=== PATIENT | female | born 1950 | race Hispanic/Latino ===

== ENCOUNTER 2017-08-01 06:37 | Inpatient (IN) | payer OTHER ==
--- OUTSIDE RECORDS SUMMARY | 2017-08-01 06:40 | XMS REPORT | Clinical Summary ---
:1950 Author Organization [facility] Address [address] [place] [address] Phone Care Team Providers Name Role Phone Unavailable Primary Care Provider Unavailable Allergies No Known Allergies Current Medications Prescription Sig. Disp. Refills Start Date End Date Status amLODIPine Take 5 mg by mouth Active (NORVASC) 5 MG 2 (two) times tablet daily. carvedilol Take 6.25 mg by Active (COREG) 6.25 MG mouth 2 (two) times tablet daily with breakfast and dinner. lisinopril Take 20 mg by mouth Active (PRINIVIL,ZESTRIL daily. ) 20 MG tablet aspirin 81 MG Take 81 mg by mouth Active chewable tablet daily. simvastatin Take 40 mg by mouth Active (ZOCOR) 40 MG nightly. tablet clopidogrel Take 1 tablet (75 90 tablet 0 07/14/2017 10/13/19 Active (PLAVIX) 75 mg mg total) by mouth 18 tablet daily for 90 days. insulin lispro Inject 20 Units 10 mL 0 07/13/2017 07/14/19 Active (HUMALOG) 100 subcutaneously 3 19 unit/mL injection (three) times daily with meals. insulin glargine Inject 30 Units 20 mL 3 07/13/2017 07/14/19 Active (LANTUS) 100 subcutaneously 2 19 unit/mL (two) times daily. injectionIndicati ons: type 2 diabetes mellitus insulin glargine Inject 40 Units 07/14/19 Discontinued (LANTUS) 100 subcutaneously 2 18 unit/mL injection (two) times daily Use as directed . glimepiride Take 1 mg by mouth 07/14/19 Discontinued (AMARYL) 1 MG 2 (two) times 18 tablet daily. metFORMIN Take 1,000 mg by 07/14/19 Discontinued (GLUCOPHAGE) 1000 mouth 2 (two) times 18 MG tablet daily with breakfast and dinner. insulin aspart Inject 35 Units 07/14/19 Discontinued (NOVOLOG) 100 subcutaneously 3 18 unit/mL injection (three) times daily before meals. Active Problems Problem Noted Date Diabetes mellitus (HCC) 07/12/2017 Hypertension 07/12/2017 Pneumonia 07/12/2017 Volume overload 07/12/2017 Acute respiratory failure with hypoxia ([facility]) 07/12/2017 Acute ischemic left MCA stroke ([facility]) 07/08/2017 Encounters Date Type Specialty Care Team Description 07/08/2017 - Hospital Encounter Intensive Care Moe Vo Acute ischemic left 07/13/2017 MD Naomy MCA stroke Gennaro Orellana ([facility]);Received MD Fransisco tissue plasminogen activator (t-PA) less than 24 hours prior to arrival;Acute respiratory failure with hypoxia ([facility]) 07/08/2017 Anesthesia Event Shilo Valiente MD 07/08/2017 Procedure Pass 07/08/2017 Surgery Virtual, Surgeon PROCEDURE DONE OUTSIDE OR after 07/31/2016 Social History Tobacco Use Types Packs/Day Years Used Date Never Smoker Smokeless Tobacco: Never Used Sex Assigned at Date Recorded Not on file Last Filed Vital Signs Vital Sign Reading Time Taken Blood Pressure 128/54 07/13/2017 11:00 AM CDT Pulse 65 07/13/2017 1:00 PM CDT Temperature 36.8 C (98.3 F) 07/13/2017 11:00 AM CDT Respiratory Rate 8 07/13/2017 1:00 PM CDT Oxygen Saturation 100% 07/13/2017 12:00 PM CDT Inhaled Oxygen Concentration - - Weight 86.3 kg (190 lb 4.1 oz) 07/08/2017 6:27 PM [employer] Height 165.1 cm (5' 5") 07/08/2017 6:27 PM [employer] Body Mass Index 31.66 07/08/2017 6:27 PM [employer] Plan of Treatment Not on file Procedures Procedure Name Priority Date/Time Associated Diagnosis Comments PROCEDURE DONE OUTSIDE 07/08/2017 2:02 PM CREOSOT[employer] ENGINEER OR after 07/31/2016 Results RHYTHM STRIP - SCAN (07/17/2017 11:00 AM)POC-Glucose meter (07/13/2017 12:19 PM) Only the most recent of21 resultswithin the time period is included. Component Value Ref Range POC-Glucose Meter 302 (H)Comment: Notified SAAMN HERNANDEZ/TESTED AT [facility] [id number] 70 - 110 mg/dL [facility] [id number] Specimen Performing Laboratory Blood [address] [address] Calcium, Ionized (07/13/2017 3:34 AM) Component Value Ref Range Calcium, Ion 1.11 (L) 1.12 - 1.27 mmol/L pH, Blood 7.47 Specimen Performing Laboratory Blood - Line, Venous [address] [address] CBC with platelet count + automated diff (07/13/2017 3:34 AM)Only the most recent of6 resultswithin the time period is included. Component Value Ref Range WBC 8.1 3.5 - 10.5 K/L RBC 3.43 (L) 3.93 - 5.22 M/L Hemoglobin 10.9 (L) 11.2 - 15.7 GM/DL Hematocrit 32.2 (L) 34.1 - 44.9 % MCV 93.9 79.4 - 94.8 fL MCH 31.8 25.6 - 32.2 pg MCHC 33.9 32.2 - 35.5 GM/DL RDW 13.2 11.7 - 14.4 % Platelets 225 150 - 450 K/CU MM MPV 12.9 (H) 9.4 - 12.3 fL nRBC 0 0 - 0 /100 WBC % Neutros 60 % % Lymphs 26 % % Monos 8 % % Eos 6 % % Baso 0 % # Neutros 4.83 1.56 - 6.13 K/L # Lymphs 2.09 1.18 - 3.74 K/L # Monos 0.66 (H) 0.24 - 0.36 K/L # Eos 0.48 (H) 0.04 - 0.36 K/L # Baso 0.03 0.01 - 0.08 K/L Immature Granulocytes-Relative 0 0 - 1 % Specimen Performing Laboratory Blood - Line, Venous [address] [address] CBC with platelet count + automated diff (07/13/2017 3:34 AM)Only the most recent of6 resultswithin the time period is included. Specimen Performing Laboratory Blood Narrative The following orders were created for panel order CBC with platelet count + automated diff. Procedure Abnormality Status --------- ------ CBC with platelet count ...[[id number]]AbnormalFinal result Please view results for these tests on the individual orders. Phosphorus (07/13/2017 3:34 AM) Component Value Ref Range Phosphorus 3.2 2.3 - 4.7 mg/dL Specimen Performing Laboratory Blood - Line, Venous [address] [address] Magnesium (07/13/2017 3:34 AM) Component Value Ref Range Magnesium 1.3 (L) 1.6 - 2.6 mg/dL Specimen Performing Laboratory Blood - Line, Venous [address] [address] Basic Metabolic Panel (07/13/2017 3:34 AM)Only the most recent of6 resultswithin the time period is included. Component Value Ref Range Sodium 137 136 - 145 meq/L Potassium 3.4 (L) 3.5 - 5.1 meq/L Chloride 103 98 - 107 meq/L CO2 25 22 - 29 meq/L BUN 22 (H) 7 - 21 mg/dL Creatinine 0.74 0.57 - 1.25 mg/dL Glucose 237 (H) 70 - 105 mg/dL Calcium 9.0 8.4 - 10.2 mg/dL EGFR 79Comment: ESTIMATED GFR IS NOT ACCURATE mL/min/1.73 sq m CREATININE CLEARANCE IN PREDICTING GLOMERULAR FILTRATION RATE. ESTIMATED GFR IS NOT APPLICABLE FOR DIALYSIS PATIENTS. Specimen Performing Laboratory Blood - Line, Venous [address] [address] XR chest 1 view portable / bedside (07/12/2017 8:45 AM)Only the most recent of4 resultswithin the time period is included. Specimen Performing Laboratory GE RIS Narrative FINAL REPORT Chest one view INDICATION: Respiratory distress COMPARISON: 07/11/2017 IMPRESSION: Two frontal images of the chest are provided. Decreased diffuse lung opacities suggesting improved pulmonary edema. Superimposed pneumonitis cannot be excluded particularly at the bases. Minimal pleural effusions are suspected. The cardiac silhouette is enlarged. Mediastinal prominence is stable. The bones appear unchanged. No pneumothorax is seen. Signed: Guy Hercules MD Report Verified Date/Time:07/12/2017 09:30:37 Reading Location: [facility] Radiology Reading Room Procedure Note Interface, External Ris In - 07/12/2017 9:32 AM CDT FINAL REPORT Chest one view INDICATION: Respiratory distress COMPARISON: 07/11/2017 IMPRESSION: Two frontal images of the chest are provided. Decreased diffuse lung opacities suggesting improved pulmonary edema. Superimposed pneumonitis cannot be excluded particularly at the bases. Minimal pleural effusions are suspected. The cardiac silhouette is enlarged. Mediastinal prominence is stable. The bones appear unchanged. No pneumothorax is seen. Signed: Guy Hercules MD Report Verified Date/Time: 07/12/2017 09:30:37 Reading Location: [facility] Radiology Reading Room Vitamin B12 (07/12/2017 4:50 AM) Component Value Ref Range Vitamin B12 318 213 - 816 pg/mL Specimen Performing Laboratory Blood [address] [address] Blood gas, arterial (07/11/2017 5:01 AM)Only the most recent of4 resultswithin the time period is included. Component Value Ref Range pH, Arterial 7.42 7.35 - 7.45 pCO2, Arterial 29 (L) 35 - 45 mmHg pO2, Arterial 96 (H) 80 - 90 mmHg O2 Sat, Arterial 97.5 (H) 96.0 - 97.0 % HCO3, Arterial 18 (L) 21 - 29 mmol/L Base Excess, Arterial -5.1 (L) -2.0 - 3.0 mmol/L Patient Temperature 37.0 C FIO2 21.0 % Specimen Performing Laboratory Blood, Arterial - Line, Arterial [address] [address] Troponin I (07/10/2017 11:56 PM)Only the most recent of2 resultswithin the time period is included. Component Value Ref Range Troponin I 0.17 (H) 0.00 - 0.03 ng/mL Specimen Performing Laboratory Blood - Line, Arterial [address] [address] Narrative Troponin I (TnI) levels must be interpreted in the context of the presenting symptoms and the clinical findings. Elevated TnI levels indicate myocardial damage, but are not specific for ischemic heart disease. Elevated TnI levels are seen in patients with other cardiac conditions (including myocarditis and congestive heart failure), and slight TnI elevations occur in patients with other conditions, including sepsis, renal failure, acidosis, acute neurological disease, and persistent tachyarrhythmia. Creatine Kinase (CK), Total and MB (07/10/2017 11:56 PM)Only the most recent of2 resultswithin the time period is included. Component Value Ref Range Total CK 168 29 - 200 U/L CK-MB 1.2 0.0 - 6.6 ng/mL MB Relative Index 0.7 % Specimen Performing Laboratory Blood - Line, Arterial [address] [address] Narrative CK-MB Reference Range: <6.7Normal 6.7-10.0Borderline >10.0 Abnormal ECG 12 lead (07/10/2017 2:10 PM)Only the most recent of2 resultswithin the time period is included. Specimen Performing Laboratory GE MUSE Narrative Ventricular Rate 75 BPM Atrial Rate 75 BPM P-R Interval 150 ms QRS Duration 74 ms Q-T Interval 382 ms QTC Calculation(Bazett) 426 ms P [place] 48 degrees R [place] -3 degrees T [place] 168 degrees Normal sinus rhythm ST & T wave abnormality, consider lateral ischemia Abnormal ECG When compared with ECG of 10-JUL-2017 07:11, QT has shortened Confirmed by MD MAYUR, MICHAEL Escalera ([id number]) on 07/11/2017 7:04:48 AM Procedure Note Interface, External Ris In - 07/11/2017 7:04 AM CDT Ventricular Rate 75 BPM Atrial Rate 75 BPM P-R Interval 150 ms QRS Duration 74 ms Q-T Interval 382 ms QTC Calculation(Bazett) 426 ms P [place] 48 degrees R [place] -3 degrees T [place] 168 degrees Normal sinus rhythm ST & T wave abnormality, consider lateral ischemia Abnormal ECG When compared with ECG of 10-JUL-2017 07:11, QT has shortened Confirmed by MD MAYUR, MICHAEL Escalera ([id number]) on 07/11/2017 7:04:48 AM Sputum Culture + Gram Stain (07/10/2017 12:56 PM) Component Value Ref Range Result Result 4+ Haemophilus influenzae (A)Comment: Beta-lactamase negative Gram Stain Result 4+ WBCs Gram Stain Result 0-5 epithelial cells Gram Stain Result <1+ gram positive rods Gram Stain Result 2+ gram positive cocci in pairs Specimen Performing Laboratory Sputum - Expectorated [address] [address] Narrative 4+ Normal respiratory lor present ECHOCARDIOGRAM REPORT - SCAN (07/10/2017 11:50 AM)B-type Natriuretic Factor (BNP ) (07/10/2017 11:29 AM) Component Value Ref Range BNP 524 (H) 0 - 100 pg/mL Specimen Performing Laboratory Blood - Line, Arterial [address] [address] Lactic acid, arterial, whole blood (07/10/2017 4:40 AM) Component Value Ref Range Lactate, Art 0.8 0.5 - 2.2 mmol/L Specimen Performing Laboratory Blood, Arterial [address] [address] Narrative Effective 09/02/2015: Units/Reference Range Change New: 0.5-2.2 mmol/LPrevious: 5-20 mg/dL Comprehensive metabolic panel (07/10/2017 4:40 AM) Component Value Ref Range Protein, Total 6.7 6.0 - 8.3 gm/dL Albumin 3.2 (L) 3.5 - 5.0 g/dL Alkaline Phosphatase 77 40 - 150 U/L Total Bilirubin 0.9 0.2 - 1.2 mg/dL Sodium 139 136 - 145 meq/L Potassium 3.7 3.5 - 5.1 meq/L Chloride 109 (H) 98 - 107 meq/L CO2 18 (L) 22 - 29 meq/L BUN 13 7 - 21 mg/dL Creatinine 0.69 0.57 - 1.25 mg/dL Glucose 250 (H) 70 - 105 mg/dL Calcium 8.0 (L) 8.4 - 10.2 mg/dL AST 18 5 - 34 U/L ALT 13 6 - 55 U/L EGFR 85Comment: ESTIMATED GFR IS NOT ACCURATE mL/min/1.73 sq m CREATININE CLEARANCE IN PREDICTING GLOMERULAR FILTRATION RATE. ESTIMATED GFR IS NOT APPLICABLE FOR DIALYSIS PATIENTS. Specimen Performing Laboratory Blood [facility] [address] [address] [address] brain without IV contrast (07/10/2017 2:55 AM) Specimen Performing Laboratory RIS Narrative FINAL REPORT CT, BRAIN, WITHOUT CONTRAST INDICATION: "Stroke Stroke evaluation" TECHNIQUE: Noncontrast axial imaging was obtained from the vertex to the skull base. Axial images were reconstructed using a bone algorithm. DOSE REDUCTION: Dose modulation, iterative reconstruction, and/or weight-based adjustment of the mA/kV was utilized to reduce the radiation dose to as low as reasonably achievable. COMPARISON: Head CT 07/09/2017 FINDINGS: Mild global volume loss with mild to moderate patchy periventricular and subcortical areas of white matter hypoattenuation consistent with chronic microvascular ischemic disease. Midline structures and posterior fossa within normal limits. No subacute territorial infarction or hyperdense thrombus. No acute intracranial hemorrhage. No acute hydrocephalus. Intact calvarium. Symmetric globes. The paranasal sinuses and mastoid air cells are well-aerated. IMPRESSION: No acute intracranial abnormality. Signed: Jb Veronica MD Report Verified Date/Time:07/10/2017 03:09:32 Reading Location: [facility] [id number] Ortho Consult Reading Room Procedure Note Interface, External Ris In - 07/10/2017 3:55 AM CDT FINAL REPORT CT, BRAIN, WITHOUT CONTRAST INDICATION: "Stroke Stroke evaluation" TECHNIQUE: Noncontrast axial imaging was obtained from the vertex to the skull base. Axial images were reconstructed using a bone algorithm. DOSE REDUCTION: Dose modulation, iterative reconstruction, and/or weight-based adjustment of the mA/kV was utilized to reduce the radiation dose to as low as reasonably achievable. COMPARISON: Head CT 07/09/2017 FINDINGS: Mild global volume loss with mild to moderate patchy periventricular and subcortical areas of white matter hypoattenuation consistent with chronic microvascular ischemic disease. Midline structures and posterior fossa within normal limits. No subacute territorial infarction or hyperdense thrombus. No acute intracranial hemorrhage. No acute hydrocephalus. Intact calvarium. Symmetric globes. The paranasal sinuses and mastoid air cells are well-aerated. IMPRESSION: No acute intracranial abnormality. Signed: Jb Veronica MD Report Verified Date/Time: 07/10/2017 03:09:32 Reading Location: [facility] [id number] Ortho Consult Reading Room Urinalysis w/Microscopic (07/09/2017 7:59 PM) Component Value Ref Range Color, UA Light Yellow Clarity, UA Clear Specific [place], UA 1.009 1.001 - 1.035 pH, UA 5.5 5.0 - 8.0 Protein, UA 70 mg/dL (A) Negative Glucose, UA 50 mg/dL (A) Negative Ketones, UA Negative Negative Bilirubin, UA Negative Negative Blood, UA Negative Negative Nitrite, UA Negative Negative Leukocytes, UA Trace (A) Negative Urobilinogen, UA 0.2 0.2 - 1.0 mg/dL RBC, UA <1 /HPF WBC, UA 25 /HPF Bacteria, UA Rare Mucus Rare Squam Epithel, UA 1 /HPF Specimen Source Specimen [place] [address] 2D Echo W/Doppler(CW/PW/Color) (07/09/2017 12:30 PM) Component Value Ref Range Ejection Fraction Specimen Performing Laboratory [facility] ECHO HEARTLAB [id number] CPACS Narrative Transthoracic Echocardiography Report (TTE) Demographics Patient NameKYLEE BEAVERS Date of Study07/09/2017 BILLY Gender Female Visit [id number] Race Unknown [id number] Number Date of 1950 ReferringRal Tavo Physician Tavo Rosa Age 67 year(s) SonographerCharis Cordova Interventional Radiology Tech Devon Agudelo Interpreting Physician DAVID Perez Procedure Type of Study TTE procedure:2DECHO W DOPPLER(CW/PW/COLOR) (Routine) Indications:Suspected cardiac source of emboli. Clinical History HGB 12 HCT 35.8 % Stroke, DM, HTN Contrast Medium: Bubble Study. Height: 65 inches Weight: 86.18 kg (190 lbs) BSA: 1.94 m^2 BMI: 31.62 kg/m^2 HR: 70 bpm BP: 139/61 mmHg Summary Unable to estimate peak systolic PA pressure; inadequate TR velocity signal. Mild concentric LV hypertrophy. Increased (cardiac index 3.5-4.0 L/min/m2) cardiac output state at rest is noted. Diastolic dysfunction is likely due to concomitant heart disease. The left ventricle is chamber size (by PSLAX dimension) is normal (female - LVIDd 3.8-5.2cm) . All of the LV segments contract normally . Global LV systolic function normal . Estimated LVEF by qualitative assessment is normal (>60%) . IV saline contrast injection was negative for a PFO (patent foramen ovale) at rest and post Valsalva . Previous Study In comparison with the prior exam on 05-03-06 there are no significant changes. Signature Findings Rhythm/BPRegular sinus rhythm during the exam. Left Ventricle Mild concentric LV hypertrophy. Increased ( cardiac index 3.5-4.0 L/min/m2) cardiac output state at rest is noted. Diastolic dysfunction is likely due to concomitant heart disease. The left ventricle is chamber size (by PSLAX dimension) is normal (female - LVIDd 3.8-5.2cm) . All of the LV segments contract normally . Global LV systolic function normal . Estimated LVEF by qualitative assessment is normal (>60%) . Left AtriumLA size is severely enlarged (>48 ml/m2 ) . Right VentricleThe right ventricular chamber size and systolic function are within normal limits. Right Atrium RA cavity size is normal . Atrial SeptumIV saline contrast injection was negative for a PFO (patent foramen ovale) at rest and post Valsalva . Aortic Valve Mild AoV cusp thickening. AoV cusp mobility is normal . Mitral Valve Mild mitral annular calcification. Mild MV leaflet thickening. Trace mitral regurgitation. Tricuspid ValveNormal TV structure and function. Unable to estimate peak systolic PA pressure; inadequate TR velocity signal. Pulmonic Valve Normal PV structure and function. AortaAortic root size (SInus of Valsalva diameter) is normal . Proximal ascending aorta size is normal . PericardiumNo significant pericardial effusion is visualized. IVC/SVC/PA/PV/PleuralThe estimated RA pressure by IVC dynamics 5-10mmHg . Chambers/Structures Left Atrium LA Volume: 123.36 mlLA Area: 35.68 cm^ 2 LA Vol. Index: 64 ml/m^2 Left Ventricle LVIDd: 4.67 cm LV Septum Diastolic: 1.19 cm LV PW Diastolic: 1.19 cm LVOT Diameter: 2.04 cm Right Ventricle TAPSE: 2.21 cm Aorta Ao Root S of Genoveva.: 2.95 cmAscending Aorta: 3.36 cm Doppler/Quantitative Measurements Mitral Valve MV Peak E-Wave: 1.24 m/sMV Peak A-Wave: 1.01 m/s E/ A Ratio: 1.23 Peak Gradient: 6.16 mmHg Deceleration Time: 190.6 msec MV Brian. Peak: Tissue Doppler E' Lateral Velocity: 0.07 m/s E/E': 18.12 Aortic Valve Peak Velocity: 2.33 m/sMean Velocity: 1.74 m/s Peak Gradient: 21.7 mmHg Mean Gradient: 13.19 mmHg AV Area (continuity): 2.21 cm^2 AV VTI: 41.8 cm AV DVI: 0.68 LVOT Peak Velocity: 1.41 m/s Peak Gradient: 7.92 mmHg Mean Velocity: 1 m/sMean Gradient: 4.49 mmHg LVOT Diameter: 2.04 cmLVOT VTI: 28.25 cm LVOT Area: 3.27 cm^2LVOT SV:92.29 ml LVOT CO: 6.46 l/min LVOT CI: 3.33 l/min/m^2 Procedure Note Interface, External Ris In - 07/10/2017 11:09 AM CDT Transthoracic Echocardiography Report (TTE) Demographics Patient Name KYLEE BEAVERS Date of Study 07/09/2017 BILLY Gender Female Visit Number [id number] Race Unknown Room Number 7519 Number Date of 1950 Referring Moe Vo Physician Tavo Rosa Age 67 year(s) Applique Cutter Charis Cordova Interventional Radiology Tech Devon Agudelo Interpreting Physician DAVID Perez Procedure Type of Study TTE procedure:2DECHO W DOPPLER(CW/PW/COLOR) (Routine) Indications:Suspected cardiac source of emboli. Clinical History HGB 12 HCT 35.8 % Stroke, DM, HTN Contrast Medium: Bubble Study. Height: 65 inches Weight: 86.18 kg (190 lbs) BSA: 1.94 m^2 BMI: 31.62 kg/m^2 HR: 70 bpm BP: 139/61 mmHg Summary Unable to estimate peak systolic PA pressure; inadequate TR velocity signal. Mild concentric LV hypertrophy. Increased (cardiac index 3.5-4.0 L/min/m2) cardiac output state at rest is noted. Diastolic dysfunction is likely due to concomitant heart disease. The left ventricle is chamber size (by PSLAX dimension) is normal (female - LVIDd 3.8-5.2cm) . All of the LV segments contract normally . Global LV systolic function normal . Estimated LVEF by qualitative assessment is normal (>60%) . IV saline contrast injection was negative for a PFO (patent foramen ovale) at rest and post Valsalva . Previous Study In comparison with the prior exam on 05-03-06 there are no significant changes. Signature Findings Rhythm/BP Regular sinus rhythm during the exam. Left Ventricle Mild concentric LV hypertrophy. Increased (cardiac index 3.5-4.0 L/min/m2) cardiac output state at rest is noted. Diastolic dysfunction is likely due to concomitant heart disease. The left ventricle is chamber size (by PSLAX dimension) is normal (female - LVIDd 3.8-5.2cm) . All of the LV segments contract normally . Global LV systolic function normal . Estimated LVEF by qualitative assessment is normal (>60%) . Left Atrium LA size is severely enlarged (>48 ml/m2) . Right Ventricle The right ventricular chamber size and systolic function are within normal limits. Right Atrium RA cavity size is normal . Atrial Septum IV saline contrast injection was negative for a PFO (patent foramen ovale) at rest and post Valsalva . Aortic Valve Mild AoV cusp thickening. AoV cusp mobility is normal . Mitral Valve Mild mitral annular calcification. Mild MV leaflet thickening. Trace mitral regurgitation. Tricuspid Valve Normal TV structure and function. Unable to estimate peak systolic PA pressure; inadequate TR velocity signal. Pulmonic Valve Normal PV structure and function. Aorta Aortic root size (SInus of Valsalva diameter) is normal . Proximal ascending aorta size is normal . Pericardium No significant pericardial effusion is visualized. IVC/SVC/PA/PV/Pleural The estimated RA pressure by IVC dynamics 5-10mmHg . Chambers/Structures Left Atrium LA Volume: 123.36 ml LA Area: 35.68 cm^2 LA Vol. Index: 64 ml/m^2 Left Ventricle LVIDd: 4.67 cm LV Septum Diastolic: 1.19 cm LV PW Diastolic: 1.19 cm LVOT Diameter: 2.04 cm Right Ventricle TAPSE: 2.21 cm Aorta Ao Root S of Genoveva.: 2.95 cm Ascending Aorta: 3.36 cm Doppler/Quantitative Measurements Mitral Valve MV Peak E-Wave: 1.24 m/s MV Peak A-Wave: 1.01 m/s E/A Ratio: 1.23 Peak Gradient: 6.16 mmHg Deceleration Time: 190.6 msec MV Brian. Peak: Tissue Doppler E' Lateral Velocity: 0.07 m/s E/E': 18.12 Aortic Valve Peak Velocity: 2.33 m/s Mean Velocity: 1.74 m/s Peak Gradient: 21.7 mmHg Mean Gradient: 13.19 mmHg AV Area (continuity): 2.21 cm^2 AV VTI: 41.8 cm AV DVI: 0.68 LVOT Peak Velocity: 1.41 m/s Peak Gradient: 7.92 mmHg Mean Velocity: 1 m/s Mean Gradient: 4.49 mmHg LVOT Diameter: 2.04 cm LVOT VTI: 28.25 cm LVOT Area: 3.27 cm^2 LVOT SV:92.29 ml LVOT CO: 6.46 l/min LVOT CI: 3.33 l/min/m^2 CT brain without IV contrast portable (07/09/2017 5:00 AM) Specimen Performing Laboratory RIS Narrative FINAL REPORT CT Head without contrast CLINICAL HISTORY: L. MCA stroke TECHNIQUE: Contiguous axial images through the head without contrast on the portable CT unit. This exam was performed according to the departmental dose optimization program which includes automated exposure control, adjustment of the mA and/or kV according to the patient size, and/or use of an iterative reconstruction technique. COMPARISON: 07/08/2017 FINDINGS: There appears to be asymmetric lucency involving the left middle cerebral artery posterior distribution. There is no hemorrhage. There is mild generalized parenchymal volume loss without hydrocephalus or midline shift. There are atherosclerotic calcifications of the intracranial circulation. The skull is intact. The visualized paranasal sinuses are well-aerated. IMPRESSION: Suspected left MCA posterior distribution infarction without hemorrhage. Signed: Rossi Fry MD Report Verified Date/Time:07/09/2017 07:37:39 Reading Location: [address] Neuro Reading Room Procedure Note Interface, External Ris In - 07/09/2017 7:39 AM CDT FINAL REPORT CT Head without contrast CLINICAL HISTORY: L. MCA stroke TECHNIQUE: Contiguous axial images through the head without contrast on the portable CT unit. This exam was performed according to the departmental dose optimization program which includes automated exposure control, adjustment of the mA and/or kV according to the patient size, and/or use of an iterative reconstruction technique. COMPARISON: 07/08/2017 FINDINGS: There appears to be asymmetric lucency involving the left middle cerebral artery posterior distribution. There is no hemorrhage. There is mild generalized parenchymal volume loss without hydrocephalus or midline shift. There are atherosclerotic calcifications of the intracranial circulation. The skull is intact. The visualized paranasal sinuses are well-aerated. IMPRESSION: Suspected left MCA posterior distribution infarction without hemorrhage. Signed: Rossi Fry MD Report Verified Date/Time: 07/09/2017 07:37:39 Reading Location: [address] Neuro Reading Room /Free T4 If Indicated (07/09/2017 3:49 AM) Component Value Ref Range TSH 0.60 0.35 - 4.94 uIU/mL Specimen Performing Laboratory Blood [address] [address] Hemoglobin A1c (07/09/2017 3:49 AM) Component Value Ref Range Hemoglobin A1C 12.4 (H) 4.3 - 6.1 % Specimen Performing Laboratory Blood [facility] [address] [place] [address] Lipid panel (07/09/2017 3:49 AM) Component Value Ref Range Triglycerides 300 mg/dL Cholesterol 204 mg/dL HDL 33 mg/dL LDL Calculated 111 mg/dL Specimen Performing Laboratory Blood [address] [address] Narrative Triglyceride Reference Range: Low Risk <150 [id number] High Risk 200-499 Very High Risk>=500 Cholesterol Reference Range: Low Risk <200 [id number] High Risk>240 HDL Cholesterol Reference Range: Low Risk >=60 High Risk <40 LDL Cholesterol Reference Range: Optimal<100 Near [id number] Dccg249-700 Very High >=190 Prothrombin time/INR (07/08/2017 10:53 PM) Component Value Ref Range Protime 14.2 11.7 - 14.7 seconds INR 1.1 <=5.9 Specimen Performing Laboratory Blood [address] [address] Narrative RECOMMENDED COUMADIN/WARFARIN INR THERAPY RANGES STANDARD DOSE: 2.0 - 3.0 Includes: PROPHYLAXIS for venous thrombosis, systemic embolization; TREATMENT for venous thrombosis and/or pulmonary embolus. HIGH RISK: Target INR is 2.5-3.5 for patients with mechanical heart valves. Hepatic function panel (07/08/2017 10:53 PM) Component Value Ref Range Protein, Total 6.7 6.0 - 8.3 gm/dL Albumin 3.3 (L) 3.5 - 5.0 g/dL Total Bilirubin 0.4 0.2 - 1.2 mg/dL Bilirubin, Direct 0.2 0.1 - 0.5 mg/dL Alkaline Phosphatase 76 40 - 150 U/L AST 22 5 - 34 U/L ALT 16 6 - 55 U/L Specimen Performing Laboratory [place] [address] [place] Common Carotid Or Innominate w/Extracranial (07/08/2017 6:09 PM) Specimen Performing Laboratory GE RIS Narrative FINAL REPORT DATE: 07/08/2017 ATTENDING: Tristen Thapa MD ASSISTANTS: Borck Fuller MD, Eleno Solorzano PREOPERATIVE DIAGNOSIS:Acute Left MCA Stroke, MCA M2 division occlusion POSTOPERATIVE DIAGNOSIS: Acute Left MCA Stroke, MCA M2 division high grade stenosis PROCEDURE PERFORMED: 1. Diagnostic Angiogram 2. Intra-arterial thrombolysis with Aggrastat infusion [34ml (50mcg/ml) over 30 minutes] ANESTHESIOLOGIST: Rocco ANESTHESIA: General COMPLICATIONS: None ESTIMATED BLOOD LOSS: Less than 15ml VESSELS STUDIED: *Left common carotid artery x 1 *Left internal carotid artery x >10 *Right common femoral artery x1 MATERIALS EMPLOYED: 1. 8 Lao short sheath 2. 5 Lao 125cm diagnostic catheter 3. Bentson guidewire 4. Terumo 0.035 LT glidewire 5. Flowgate 8f Balloon Guide Catheter 8. 8 Lao Angioseal device INDICATIONS: The patient is a 67-year-old female with history of hypertension, diabetes and prior stroke who presented with acute onset aphasia in her hometown of [place] around 11:00 AM. She was evaluated and transferred to [facility] for further evaluation treatment. On arrival, the patient had an NIHSS stroke scale of 11 with significant aphasia. Her CTA suggested a left MCA lower division M2 proximal occlusion and her perfusion study showed decreased perfusion in this territory. Therefore, acute neurovascular intervention was recommended. While the patient was being prepared for the procedure by the team, the indications for the procedure as well as the risks, benefits and alternatives to the procedure were discussed with the the family. The risks discussed included but were not limited to stroke, intracranial hemorrhage, injury to the cervical femoral or aortic vessels, contrast reaction, kidney to toxicity, groin hematoma, weakness paralysis and even . They demonstrated understanding of the risk benefit profile and agreed to proceed. PROCEDURE: After appropriate consent was obtained, the patient was brought to the angiographic suite and cardiopulmonary monitoring was placed. The anesthesia team performed general anesthesia so that images would be more clear and ranch cutoffs could be identified and roadmap's used to access them for thrombectomy. A timeout was performed. Both groins were prepped and draped in the usual sterile fashion. After administration of 10 mL of 2% lidocaine, a micropuncture needle was used to perform a single wall puncture of the right common femoral artery, a micropuncture sheath was inserted, and an angled DSA angiogram was performed through the sheath. Once good location of the puncture site was confirmed, a 8 Lao short sheath was inserted over a Bentson wire and was maintained on heparinized saline flush throughout the remainder of the procedure. Using coaxial technique, a preflushed 5 Lao 125cm diagnostic glide catheter on constant heparinized saline flush was placed through a pre-flushed and pre-prepped 8 Lao Flowgate balloon Guide catheter. The two catheters were inserted together and advanced over the Glidewire into the descending aorta, the Glidewire was removed, the catheter and flowgate were back bled, flushed in usual fashion and they were maintained on heparinized flushed throughout duration of their use. Using coaxial technique, the catheter was advanced into the aortic arch and with the aid of roadmapping, digital fluoroscopy, and careful guidewire manipulation, the left common carotid and left internal carotid arteries were selectively catheterized. Over the diagnostic catheter, the flowgate balloon guide catheter was advanced into the proximal internal carotid artery. The diagnostic catheter was removed, and the balloon guide again back flushed, antegrade flushed and maintained on heparinized flushed throughout remainder the procedure. Then performed intracranial images AP, lateral, and magnified obliques and identified the near occlusion. Given the imaging characteristics of a high-grade near occlusion at the proximal left inferior division M2 branch with a narrow channel filling the downstream inferior division, a chronic atherosclerotic high-grade stenosis with superimposed thrombus leading to her symptoms was suspected. Therefore, rather than performing a thrombectomy and potentially closing this channel which was filling the distal inferior division with minimal delay, we infused intra-arterial Aggrastat 10 mL over 10 minutes and a control angiogram was performed. An additional 10 mg of Aggrastat was slowly infused over 10 minutes in control angiograms performed showing slight improvement in flow through the channel and into the distal branches. Additional Aggrastat was infused with better views of the vessel to assure that the flow was improving to a total of 34 mL over 30 minutes. Final angiographic views showed modestly improved caliber and minimal appearance of thrombus in the vessel lumen. An Aggrastat IV drip was initiated. We retracted the flowgate catheter using the live fluoroscopy and puffing technique two sure there is no injury to the internal carotid artery from the flowgate balloon. None was seen. We then removed the flowgate from the circulation. The femoral sheath was removed and hemostasis achieved with an 8 Lao Angioseal and manual compression. The patient tolerated the procedure well and was present transported from the images read in unchanged neurological status without groin hematoma and with good distal lower extremity pulses. The patient was transferred to the neurological intensive care unit to be monitored as per protocol. FINDINGS: RIGHT COMMON FEMORAL ARTERY (DSA, PA X 1) Normal common femoral artery was puncture site above the bifurcation and below the markers of the internal ligament. There is slow flow in one of the distal femoral branches suggestive of downstream atherosclerotic disease. LEFT COMMON CAROTID ARTERY (DSA, PA, LATERAL, CERVICAL) The distal cervical common carotid as well as the origins of the left internal and external carotid arteries are widely patent without evidence of ulceration or stenosis. There is a small amount of calcification along the carrillo of the carotid bifurcation without any obvious intraluminal atherosclerotic plaque. LEFT INTERNAL CAROTID ARTERY (DSA, PA, LATERAL x2) Normal distal cervical, petrous, cavernous and supraclinoid internal carotid artery with a left MCA inferior division M2 segment high-grade stenosis with the appearance of superimposed layering acute thrombus within the lumen. Post intra-arterial thrombolysis, there is reduction in the appearance of intraluminal clot with modestly improved physiological filling of the distal MCA M2 inferior division branches. There is a single inferior distal branch which fills slightly delayed less than one second compared to the remainder of the MCA branches. There is ever so slightly decreased capillary phase blush in the lower third of the inferior division branches distally in the parietal area.No aneurysms or other vascular lesions are seen. There is no significant atherosclerosis or stenosis in other vessels noted. The venous phase demonstrates patent transverse sinuses. IMPRESSION 1. High-grade stenosis of the left MCA inferior division proximal M2 segment secondary to underlying atherosclerotic disease with superimposed layering of thrombus. Hacj-wtojl-lbbevgln thrombolysis with Aggrastat infusion, there is reduced intravascular thrombus and modestly improved flow in the MCA M2 inferior division branches. Yet, the chronic high-grade stenosis secondary to atherosclerotic disease of the proximal M2 inferior division origin remains. FACULTY ATTESTATION: I, Tristen hTapa M.D., was present for the entirety of the procedure. I performed or directly supervised all aspects of the procedure. I performed all critical aspects of the case. I interpreted the images and reported the results. Signed: Tristen Thapa MD Report Verified Date/Time:07/08/2017 18:24:25 Reading Location: [facility] Y018 Neuro Angio Reading Room Procedure Note Interface, External Ris In - 07/11/2017 12:45 PM CDT FINAL REPORT DATE: 07/08/2017 ATTENDING: Tristen Thapa MD ASSISTANTS: Brock Fuller MD, Eleno Solorzano PREOPERATIVE DIAGNOSIS: Acute Left MCA Stroke, MCA M2 division occlusion POSTOPERATIVE DIAGNOSIS: Acute Left MCA Stroke, MCA M2 division high grade stenosis PROCEDURE PERFORMED: 1. Diagnostic Angiogram 2. Intra-arterial thrombolysis with Aggrastat infusion [34ml (50mcg/ml) over 30 minutes] ANESTHESIOLOGIST: Rocco ANESTHESIA: General COMPLICATIONS: None ESTIMATED BLOOD LOSS: Less than 15ml VESSELS STUDIED: *Left common carotid artery x 1 *Left internal carotid artery x >10 *Right common femoral artery x1 MATERIALS EMPLOYED: 1. 8 Lao short sheath 2. 5 Lao 125cm diagnostic catheter 3. Bentson guidewire 4. Terumo 0.035 LT glidewire 5. Flowgate 8f Balloon Guide Catheter 8. 8 Lao Angioseal device INDICATIONS: The patient is a 67-year-old female with history of hypertension, diabetes and prior stroke who presented with acute onset aphasia in her hometown of [place] around 11:00 AM. She was evaluated and transferred to [facility] for further evaluation treatment. On arrival, the patient had an NIHSS stroke scale of 11 with significant aphasia. Her CTA suggested a left MCA lower division M2 proximal occlusion and her perfusion study showed decreased perfusion in this territory. Therefore, acute neurovascular intervention was recommended. While the patient was being prepared for the procedure by the team, the indications for the procedure as well as the risks, benefits and alternatives to the procedure were discussed with the the family. The risks discussed included but were not limited to stroke, intracranial hemorrhage, injury to the cervical femoral or aortic vessels, contrast reaction, kidney to toxicity, groin hematoma, weakness paralysis and even . They demonstrated understanding of the risk benefit profile and agreed to proceed. PROCEDURE: After appropriate consent was obtained, the patient was brought to the angiographic suite and cardiopulmonary monitoring was placed. The anesthesia team performed general anesthesia so that images would be more clear and ranch cutoffs could be identified and roadmap's used to access them for thrombectomy. A timeout was performed. Both groins were prepped and draped in the usual sterile fashion. After administration of 10 mL of 2% lidocaine, a micropuncture needle was used to perform a single wall puncture of the right common femoral artery, a micropuncture sheath was inserted, and an angled DSA angiogram was performed through the sheath. Once good location of the puncture site was confirmed, a 8 Lao short sheath was inserted over a [employer] wire and was maintained on heparinized saline flush throughout the remainder of the procedure. Using coaxial technique, a preflushed 5 Lao 125cm diagnostic glide catheter on constant heparinized saline flush was placed through a pre-flushed and pre-prepped 8 Lao Flowgate balloon Guide catheter. The two catheters were inserted together and advanced over the Glidewire into the descending aorta, the Glidewire was removed, the catheter and flowgate were back bled, flushed in usual fashion and they were maintained on heparinized flushed throughout duration of their use. Using coaxial technique, the catheter was advanced into the aortic arch and with the aid of roadmapping, digital fluoroscopy, and careful guidewire manipulation, the left common carotid and left internal carotid arteries were selectively catheterized. Over the diagnostic catheter, the flowgate balloon guide catheter was advanced into the proximal internal carotid artery. The diagnostic catheter was removed, and the balloon guide again back flushed, antegrade flushed and maintained on heparinized flushed throughout remainder the procedure. Then performed intracranial images AP, lateral, and magnified obliques and identified the near occlusion. Given the imaging characteristics of a high-grade near occlusion at the proximal left inferior division M2 branch with a narrow channel filling the downstream inferior division, a chronic atherosclerotic high-grade stenosis with superimposed thrombus leading to her symptoms was suspected. Therefore, rather than performing a thrombectomy and potentially closing this channel which was filling the distal inferior division with minimal delay, we infused intra-arterial Aggrastat 10 mL over 10 minutes and a control angiogram was performed. An additional 10 mg of Aggrastat was slowly infused over 10 minutes in control angiograms performed showing slight improvement in flow through the channel and into the distal branches. Additional Aggrastat was infused with better views of the vessel to assure that the flow was improving to a total of 34 mL over 30 minutes. Final angiographic views showed modestly improved caliber and minimal appearance of thrombus in the vessel lumen. An Aggrastat IV drip was initiated. We retracted the flowgate catheter using the live fluoroscopy and puffing technique two sure there is no injury to the internal carotid artery from the flowgate balloon. None was seen. We then removed the flowgate from the circulation. The femoral sheath was removed and hemostasis achieved with an 8 Lao Angioseal and manual compression. The patient tolerated the procedure well and was present transported from the images read in unchanged neurological status without groin hematoma and with good distal lower extremity pulses. The patient was transferred to the neurological intensive care unit to be monitored as per protocol. FINDINGS: RIGHT COMMON FEMORAL ARTERY (DSA, PA X 1) Normal common femoral artery was puncture site above the bifurcation and below the markers of the internal ligament. There is slow flow in one of the distal femoral branches suggestive of downstream atherosclerotic disease. LEFT COMMON CAROTID ARTERY (DSA, PA, LATERAL, CERVICAL) The distal cervical common carotid as well as the origins of the left internal and external carotid arteries are widely patent without evidence of ulceration or stenosis. There is a small amount of calcification along the carrillo of the carotid bifurcation without any obvious intraluminal atherosclerotic plaque. LEFT INTERNAL CAROTID ARTERY (DSA, PA, LATERAL x2) Normal distal cervical, petrous, cavernous and supraclinoid internal carotid artery with a left MCA inferior division M2 segment high-grade stenosis with the appearance of superimposed layering acute thrombus within the lumen. Post intra-arterial thrombolysis, there is reduction in the appearance of intraluminal clot with modestly improved physiological filling of the distal MCA M2 inferior division branches. There is a single inferior distal branch which fills slightly delayed less than one second compared to the remainder of the MCA branches. There is ever so slightly decreased capillary phase blush in the lower third of the inferior division branches distally in the parietal area. No aneurysms or other vascular lesions are seen. There is no significant atherosclerosis or stenosis in other vessels noted. The venous phase demonstrates patent transverse sinuses. IMPRESSION 1. High-grade stenosis of the left MCA inferior division proximal M2 segment secondary to underlying atherosclerotic disease with superimposed layering of thrombus. Liny-tdqzc-glflwaqm thrombolysis with Aggrastat infusion, there is reduced intravascular thrombus and modestly improved flow in the MCA M2 inferior division branches. Yet, the chronic high-grade stenosis secondary to atherosclerotic disease of the proximal M2 inferior division origin remains. FACULTY ATTESTATION: I, Tristen Thapa M.D., was present for the entirety of the procedure. I performed or directly supervised all aspects of the procedure. I performed all critical aspects of the case. I interpreted the images and reported the results. Signed: Tristen Thapa MD Report Verified Date/Time: 07/08/2017 18:24:25 Reading Location: [place] [address] Neuro Angio Reading Room brain/stroke test design (07/08/2017 3:00 PM) Specimen Performing Laboratory [facility] Narrative FINAL REPORT CT Head without contrast CLINICAL HISTORY: Aphasia TECHNIQUE: Contiguous axial images through the head without contrast. This exam was performed according to the departmental dose optimization program which includes automated exposure control, adjustment of the mA and/or kV according to the patient size, and/or use of an iterative reconstruction technique. COMPARISON: None FINDINGS: There is no definitive CT evidence of acute infarct. There is no intracranial hemorrhage. There is periventricular and subcortical white matter hypodensity which is nonspecific but compatible with chronic microvascular ischemic change. There are atherosclerotic calcifications of the intracranial circulation. There is generalized parenchymal volume loss without hydrocephalus, midline shift, or apparent mass effect. The skull is intact. IMPRESSION: There is no definitive CT evidence of acute infarct. There is no intracranial hemorrhage. The findings were discussed with the stroke neurologist at 2:25 PM. Signed: Rossi Fry MD Report Verified Date/Time:07/08/2017 14:24:44 Reading Location: [address] Neuro Reading Room Procedure Note Interface, External Ris In - 07/08/2017 3:02 PM CREOSOTING ENGINEER FINAL REPORT CT Head without contrast CLINICAL HISTORY: Aphasia TECHNIQUE: Contiguous axial images through the head without contrast. This exam was performed according to the departmental dose optimization program which includes automated exposure control, adjustment of the mA and/or kV according to the patient size, and/or use of an iterative reconstruction technique. COMPARISON: None FINDINGS: There is no definitive CT evidence of acute infarct. There is no intracranial hemorrhage. There is periventricular and subcortical white matter hypodensity which is nonspecific but compatible with chronic microvascular ischemic change. There are atherosclerotic calcifications of the intracranial circulation. There is generalized parenchymal volume loss without hydrocephalus, midline shift, or apparent mass effect. The skull is intact. IMPRESSION: There is no definitive CT evidence of acute infarct. There is no intracranial hemorrhage. The findings were discussed with the stroke neurologist at 2:25 PM. Signed: Rossi Fry MD Report Verified Date/Time: 07/08/2017 14:24:44 Reading Location: [address] Neuro Reading Room carotid (07/08/2017 3:00 PM) Specimen Performing Laboratory GE RIS Narrative FINAL REPORT CLINICAL HISTORY: Stroke TECHNIQUE: Contiguous contrast-enhanced axial images through the neck followed by axial images through the head with coronal and sagittal reformations to assess the arterial circulation. 3-D reconstructions were performed using a volume rendered technique separately on a workstation. CT perfusion was subsequently performed with data postprocessing on a workstation. This exam was performed according to the departmental dose optimization program which includes automated exposure control, adjustment of the mA and/or kV according to the patient size, and/or use of an iterative reconstruction technique. COMPARISON: Noncontrast CT 07/08/2017 FINDINGS: There is no evidence for a [place] first order branch vessel occlusion. There is, however, suspected loss of a left middle cerebral artery posterior division branch vessel. The CT perfusion maps demonstrate correspondingly prolonged mean transit time and delayed time to peak in the left MCA posterior distribution compared to the right. There are severe atherosclerotic calcifications of the bilateral internal carotid artery siphons. No aneurysms are seen. There is suspected occlusion of the left transverse sigmoid sinus. The major intradural venous sinuses are otherwise patent. There is a 60% stenosis of the proximal right internal carotid artery by NASCET criteria. There is 20% stenosis of the proximal left internal carotid artery by NASCET criteria. The bilateral cervical vertebral arteries are patent including the origins, but there are severe bilateral intradural segment stenoses. There are dorsal spondylitic changes in the cervical spine. There are scattered subcentimeter lymph nodes in the neck. There is asymmetric fullness of the right palatine tonsils and aryepiglottic fold. The visualized lung apices are clear. 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 The findings were discussed with the stroke neurologist and neurosurgeon at the time of dictation. Soft tissue fullness of the right palatine tonsil and aryepiglottic fold for which ENT consultation is recommended to exclude neoplasm on a nonemergent basis. Signed: Rossi Fry MD Report Verified Date/Time:07/08/2017 15:00:43 Reading Location: [address] Neuro Reading Room Procedure Note Interface, External Ris In - 07/12/2017 9:47 PM CDT FINAL REPORT CLINICAL HISTORY: Stroke TECHNIQUE: Contiguous contrast-enhanced axial images through the neck followed by axial images through the head with coronal and sagittal reformations to assess the arterial circulation. 3-D reconstructions were performed using a volume rendered technique separately on a workstation. CT perfusion was subsequently performed with data postprocessing on a workstation. This exam was performed according to the departmental dose optimization program which includes automated exposure control, adjustment of the mA and/or kV according to the patient size, and/or use of an iterative reconstruction technique. COMPARISON: Noncontrast CT 07/08/2017 FINDINGS: There is no evidence for a [place] first order branch vessel occlusion. There is, however, suspected loss of a left middle cerebral artery posterior division branch vessel. The CT perfusion maps demonstrate correspondingly prolonged mean transit time and delayed time to peak in the left MCA posterior distribution compared to the right. There are severe atherosclerotic calcifications of the bilateral internal carotid artery siphons. No aneurysms are seen. There is suspected occlusion of the left transverse sigmoid sinus. The major intradural venous sinuses are otherwise patent. There is a 60% stenosis of the proximal right internal carotid artery by NASCET criteria. There is 20% stenosis of the proximal left internal carotid artery by NASCET criteria. The bilateral cervical vertebral arteries are patent including the origins, but there are severe bilateral intradural segment stenoses. There are dorsal spondylitic changes in the cervical spine. There are scattered subcentimeter lymph nodes in the neck. There is asymmetric fullness of the right palatine tonsils and aryepiglottic fold. The visualized lung apices are clear. 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 The findings were discussed with the stroke neurologist and neurosurgeon at the time of dictation. Soft tissue fullness of the right palatine tonsil and aryepiglottic fold for which ENT consultation is recommended to exclude neoplasm on a nonemergent basis. Signed: Rossi Fry MD Report Verified Date/Time: 07/08/2017 15:00:43 Reading Location: [address] Neuro Reading Room brain cerebral perfusion analysis (07/08/2017 3:00 PM) Specimen Performing Laboratory [facility] Narrative FINAL REPORT CLINICAL HISTORY: Stroke TECHNIQUE: Contiguous contrast-enhanced axial images through the neck followed by axial images through the head with coronal and sagittal reformations to assess the arterial circulation. 3-D reconstructions were performed using a volume rendered technique separately on a workstation. CT perfusion was subsequently performed with data postprocessing on a workstation. This exam was performed according to the departmental dose optimization program which includes automated exposure control, adjustment of the mA and/or kV according to the patient size, and/or use of an iterative reconstruction technique. COMPARISON: Noncontrast CT 07/08/2017 FINDINGS: There is no evidence for a [place] first order branch vessel occlusion. There is, however, suspected loss of a left middle cerebral artery posterior division branch vessel. The CT perfusion maps demonstrate correspondingly prolonged mean transit time and delayed time to peak in the left MCA posterior distribution compared to the right. There are severe atherosclerotic calcifications of the bilateral internal carotid artery siphons. No aneurysms are seen. There is suspected occlusion of the left transverse sigmoid sinus. The major intradural venous sinuses are otherwise patent. There is a 60% stenosis of the proximal right internal carotid artery by NASCET criteria. There is 20% stenosis of the proximal left internal carotid artery by NASCET criteria. The bilateral cervical vertebral arteries are patent including the origins, but there are severe bilateral intradural segment stenoses. There are dorsal spondylitic changes in the cervical spine. There are scattered subcentimeter lymph nodes in the neck. There is asymmetric fullness of the right palatine tonsils and aryepiglottic fold. The visualized lung apices are clear. 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 The findings were discussed with the stroke neurologist and neurosurgeon at the time of dictation. Soft tissue fullness of the right palatine tonsil and aryepiglottic fold for which ENT consultation is recommended to exclude neoplasm on a nonemergent basis. Signed: Rossi Fry MD Report Verified Date/Time:07/08/2017 15:00:43 Reading Location: [address] Neuro Reading Room Procedure Note Interface, External Ris In - 07/08/2017 3:03 PM [employer] ENGINEER FINAL REPORT CLINICAL HISTORY: Stroke TECHNIQUE: Contiguous contrast-enhanced axial images through the neck followed by axial images through the head with coronal and sagittal reformations to assess the arterial circulation. 3-D reconstructions were performed using a volume rendered technique separately on a workstation. CT perfusion was subsequently performed with data postprocessing on a workstation. This exam was performed according to the departmental dose optimization program which includes automated exposure control, adjustment of the mA and/or kV according to the patient size, and/or use of an iterative reconstruction technique. COMPARISON: Noncontrast CT 07/08/2017 FINDINGS: There is no evidence for a [place] first order branch vessel occlusion. There is, however, suspected loss of a left middle cerebral artery posterior division branch vessel. The CT perfusion maps demonstrate correspondingly prolonged mean transit time and delayed time to peak in the left MCA posterior distribution compared to the right. There are severe atherosclerotic calcifications of the bilateral internal carotid artery siphons. No aneurysms are seen. There is suspected occlusion of the left transverse sigmoid sinus. The major intradural venous sinuses are otherwise patent. There is a 60% stenosis of the proximal right internal carotid artery by NASCET criteria. There is 20% stenosis of the proximal left internal carotid artery by NASCET criteria. The bilateral cervical vertebral arteries are patent including the origins, but there are severe bilateral intradural segment stenoses. There are dorsal spondylitic changes in the cervical spine. There are scattered subcentimeter lymph nodes in the neck. There is asymmetric fullness of the right palatine tonsils and aryepiglottic fold. The visualized lung apices are clear. 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 The findings were discussed with the stroke neurologist and neurosurgeon at the time of dictation. Soft tissue fullness of the right palatine tonsil and aryepiglottic fold for which ENT consultation is recommended to exclude neoplasm on a nonemergent basis. Signed: Rossi Fry MD Report Verified Date/Time: 07/08/2017 15:00:43 Reading Location: [address] Neuro Reading Room brain (07/08/2017 3:00 PM) Specimen Performing Laboratory [facility] Narrative FINAL REPORT CLINICAL HISTORY: Stroke TECHNIQUE: Contiguous contrast-enhanced axial images through the neck followed by axial images through the head with coronal and sagittal reformations to assess the arterial circulation. 3-D reconstructions were performed using a volume rendered technique separately on a workstation. CT perfusion was subsequently performed with data postprocessing on a workstation. This exam was performed according to the departmental dose optimization program which includes automated exposure control, adjustment of the mA and/or kV according to the patient size, and/or use of an iterative reconstruction technique. COMPARISON: Noncontrast CT 07/08/2017 FINDINGS: There is no evidence for a [place] first order branch vessel occlusion. There is, however, suspected loss of a left middle cerebral artery posterior division branch vessel. The CT perfusion maps demonstrate correspondingly prolonged mean transit time and delayed time to peak in the left MCA posterior distribution compared to the right. There are severe atherosclerotic calcifications of the bilateral internal carotid artery siphons. No aneurysms are seen. There is suspected occlusion of the left transverse sigmoid sinus. The major intradural venous sinuses are otherwise patent. There is a 60% stenosis of the proximal right internal carotid artery by NASCET criteria. There is 20% stenosis of the proximal left internal carotid artery by NASCET criteria. The bilateral cervical vertebral arteries are patent including the origins, but there are severe bilateral intradural segment stenoses. There are dorsal spondylitic changes in the cervical spine. There are scattered subcentimeter lymph nodes in the neck. There is asymmetric fullness of the right palatine tonsils and aryepiglottic fold. The visualized lung apices are clear. 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 The findings were discussed with the stroke neurologist and neurosurgeon at the time of dictation. Soft tissue fullness of the right palatine tonsil and aryepiglottic fold for which ENT consultation is recommended to exclude neoplasm on a nonemergent basis. Signed: Rossi Fry MD Report Verified Date/Time:07/08/2017 15:00:43 Reading Location: [address] Neuro Reading Room Procedure Note Interface, External Ris In - 07/12/2017 9:46 PM CDT FINAL REPORT CLINICAL HISTORY: Stroke TECHNIQUE: Contiguous contrast-enhanced axial images through the neck followed by axial images through the head with coronal and sagittal reformations to assess the arterial circulation. 3-D reconstructions were performed using a volume rendered technique separately on a workstation. CT perfusion was subsequently performed with data postprocessing on a workstation. This exam was performed according to the departmental dose optimization program which includes automated exposure control, adjustment of the mA and/or kV according to the patient size, and/or use of an iterative reconstruction technique. COMPARISON: Noncontrast CT 07/08/2017 FINDINGS: There is no evidence for a [place] first order branch vessel occlusion. There is, however, suspected loss of a left middle cerebral artery posterior division branch vessel. The CT perfusion maps demonstrate correspondingly prolonged mean transit time and delayed time to peak in the left MCA posterior distribution compared to the right. There are severe atherosclerotic calcifications of the bilateral internal carotid artery siphons. No aneurysms are seen. There is suspected occlusion of the left transverse sigmoid sinus. The major intradural venous sinuses are otherwise patent. There is a 60% stenosis of the proximal right internal carotid artery by NASCET criteria. There is 20% stenosis of the proximal left internal carotid artery by NASCET criteria. The bilateral cervical vertebral arteries are patent including the origins, but there are severe bilateral intradural segment stenoses. There are dorsal spondylitic changes in the cervical spine. There are scattered subcentimeter lymph nodes in the neck. There is asymmetric fullness of the right palatine tonsils and aryepiglottic fold. The visualized lung apices are clear. 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 The findings were discussed with the stroke neurologist and neurosurgeon at the time of dictation. Soft tissue fullness of the right palatine tonsil and aryepiglottic fold for which ENT consultation is recommended to exclude neoplasm on a nonemergent basis. Signed: Rossi Fry MD Report Verified Date/Time: 07/08/2017 15:00:43 Reading Location: [facility] Neuro Reading Room after 07/31/2016
--- OUTSIDE RECORDS SUMMARY | 2017-08-01 06:41 | XMS REPORT ---
:1950 [facility] [address] [place] [address] [address]. [address] [place] [address] Care Team Providers Name Role Phone MARILOU CUMMINGSL Unavailable Unavailable Problems This patient has no known problems. Allergies, Adverse Reactions, Alerts This patient has no known allergies or adverse reactions. Medications This patient has no known medications. Results Test Description Test Time Test Comments Text Results Atomic Results Result Comments SPUTUM CULTURE + GRAM STAIN 2017-07-13 15:32:00 Test Item Value Reference Range Comments CULTURE (BEAKER) (test 4+ Haemophilus fkil=0232) influenzaeBeta-lactamase negative GRAM STAIN RESULT 4+ WBCs (BEAKER) (test gdoz=3243) GRAM STAIN RESULT 0-5 epithelial cells (BEAKER) (test jnjo=964607) GRAM STAIN RESULT <1+ gram positive (BEAKER) (test rods vayo=749853) GRAM STAIN RESULT 2+ gram positive cocci (BEAKER) (test in pairs pbkd=222018) 4+ Normal respiratory lor presentPOCT-GLUCOSE [id number] 12:42:00 Test Item Value Reference Range Comments POC-GLUCOSE METER (BEAKER) 302 mg/dL 70-110 Notified SAMAN HERNANDEZ/TESTED AT [facility] (test hnys=3647) [address] [place] [address] POCT-GLUCOSE [id number] 07:51:00 Test Item Value Reference Range Comments POC-GLUCOSE METER (BEAKER) 264 mg/dL 70-110 TESTED AT [address] (test xftp=9911) [facility] [address] CALCIUM, [id number] 05:24:00 Test Item Value Reference Range Comments CALCIUM IONIZED (BEAKER) (test xmxz=334) 1.11 mmol/L 1.12-1.27 PH, BLOOD (BEAKER) (test vywo=2566) 7.47 [id number] 04:43:00 Test Item Value Reference Range Comments PHOSPHORUS (BEAKER) (test vomd=791) 3.2 mg/dL 2.3-4.7 [id number] 04:43:00 Test Item Value Reference Range Comments MAGNESIUM (BEAKER) (test inku=950) 1.3 mg/dL 1.6-2.6 BASIC METABOLIC [id number] 04:43:00 Test Item Value Reference Range Comments SODIUM (BEAKER) (test 137 meq/L 136-145 uego=232) POTASSIUM (BEAKER) (test 3.4 meq/L 3.5-5.1 kdsg=508) CHLORIDE (BEAKER) (test 103 meq/L 98-107 gyrk=790) CO2 (BEAKER) (test 25 meq/L 22-29 xgzm=730) BLOOD UREA NITROGEN 22 mg/dL 7-21 (BEAKER) (test csxo=266) CREATININE (BEAKER) (test 0.74 mg/dL 0.57-1.25 qcwq=157) GLUCOSE RANDOM (BEAKER) 237 mg/dL 70-105 (test zgji=484) CALCIUM (BEAKER) (test 9.0 mg/dL 8.4-10.2 mhku=084) EGFR (BEAKER) (test 79 mL/min/1.73 sq m ESTIMATED GFR IS NOT uaje=3214) ACCURATE CREATININE CLEARANCE IN PREDICTING GLOMERULAR FILTRATION RATE. ESTIMATED GFR IS NOT APPLICABLE FOR DIALYSIS PATIENTS. CBC W/PLT COUNT & AUTO [id number] 04:05:00 Test Item Value Reference Range Comments WHITE BLOOD CELL COUNT (BEAKER) (test xfdo=025) 8.1 K/ L 3.5-10.5 RED BLOOD CELL COUNT (BEAKER) (test hyiu=291) 3.43 M/ L 3.93-5.22 HEMOGLOBIN (BEAKER) (test yezz=878) 10.9 GM/DL 11.2-15.7 HEMATOCRIT (BEAKER) (test bftm=143) 32.2 % 34.1-44.9 MEAN CORPUSCULAR VOLUME (BEAKER) (test skra=830) 93.9 fL 79.4-94.8 MEAN CORPUSCULAR HEMOGLOBIN (BEAKER) (test 31.8 pg 25.6-32.2 lohc=097) MEAN CORPUSCULAR HEMOGLOBIN CONC (BEAKER) (test 33.9 GM/DL 32.2-35.5 pgzj=882) RED CELL DISTRIBUTION WIDTH (BEAKER) (test 13.2 % 11.7-14.4 kqva=553) PLATELET COUNT (BEAKER) (test jwzy=952) 225 K/CU MM 150-450 MEAN PLATELET VOLUME (BEAKER) (test dnwj=214) 12.9 fL 9.4-12.3 NUCLEATED RED BLOOD CELLS (BEAKER) (test 0 /100 WBC 0-0 lynm=946) NEUTROPHILS RELATIVE PERCENT (BEAKER) (test 60 % thys=085) LYMPHOCYTES RELATIVE PERCENT (BEAKER) (test 26 % ssdn=574) MONOCYTES RELATIVE PERCENT (BEAKER) (test 8 % afqb=820) EOSINOPHILS RELATIVE PERCENT (BEAKER) (test 6 % mtbj=918) BASOPHILS RELATIVE PERCENT (BEAKER) (test 0 % keeb=627) NEUTROPHILS ABSOLUTE COUNT (BEAKER) (test 4.83 K/ L 1.56-6.13 ixfv=867) LYMPHOCYTES ABSOLUTE COUNT (BEAKER) (test 2.09 K/ L 1.18-3.74 uqhg=959) MONOCYTES ABSOLUTE COUNT (BEAKER) (test 0.66 K/ L 0.24-0.36 nsvp=862) EOSINOPHILS ABSOLUTE COUNT (BEAKER) (test 0.48 K/ L 0.04-0.36 rrvu=513) BASOPHILS ABSOLUTE COUNT (BEAKER) (test 0.03 K/ L 0.01-0.08 notb=172) IMMATURE GRANULOCYTES-RELATIVE PERCENT (BEAKER) 0 % 0-1 (test qime=2805) POCT-GLUCOSE [id number] 21:31:00 Test Item Value Reference Range Comments POC-GLUCOSE METER (BEAKER) 186 mg/dL 70-110 TESTED AT [address] (test jour=5135) [facility] [address] POCT-GLUCOSE [id number] 18:45:00 Test Item Value Reference Range Comments POC-GLUCOSE METER (BEAKER) 215 mg/dL 70-110 TESTED AT [address] (test zbfy=7253) [facility] [address] POCT-GLUCOSE [id number] 12:34:00 Test Item Value Reference Range Comments POC-GLUCOSE METER (BEAKER) 428 mg/dL 70-110 Notified SAMAN HERNANDEZ/TESTED AT [facility] (test dsgy=0608) [address] [facility] [address] RAD, CHEST, 1 VIEW, NON [id number] 09:30:00Reason for exam:->Respiratory distress Should this be performed at the bedside?->YesFINAL REPORT Chest one view INDICATION: Respiratory distress COMPARISON: 2017 IMPRESSION: Two frontal images of the chest are provided. Decreased diffuse lung opacities suggesting improved pulmonary edema. Superimposed pneumonitis cannot be excluded particularly at the bases. Minimal pleural effusions are suspected. The cardiac silhouette is enlarged. Mediastinal prominence is stable. The bones appear unchanged. No pneumothorax is seen. Signed: Guy Hercules Verified Date/Time: 07/12/2017 09:30:37 Reading Location: [facility] Radiology Reading Room POCT-GLUCOSE [id number] 07:54:00 Test Item Value Reference Range Comments POC-GLUCOSE METER (BEAKER) 332 mg/dL 70-110 TESTED AT [facility] [address] [place] [address] (test uyei=9174) [facility] [address] VITAMIN [id number] 06:24:00 Test Item Value Reference Range Comments VITAMIN B12 (BEAKER) (test hmlf=149) 318 pg/mL 213-816 BASIC METABOLIC [id number] 05:51:00 Test Item Value Reference Range Comments SODIUM (BEAKER) (test 141 meq/L 136-145 urlz=508) POTASSIUM (BEAKER) (test 3.6 meq/L 3.5-5.1 vcgu=426) CHLORIDE (BEAKER) (test 108 meq/L 98-107 vret=183) CO2 (BEAKER) (test 25 meq/L 22-29 ektl=260) BLOOD UREA NITROGEN 19 mg/dL 7-21 (BEAKER) (test xeos=585) CREATININE (BEAKER) (test 0.82 mg/dL 0.57-1.25 vqfh=767) GLUCOSE RANDOM (BEAKER) 393 mg/dL 70-105 (test epyw=816) CALCIUM (BEAKER) (test 8.9 mg/dL 8.4-10.2 jwso=970) EGFR (BEAKER) (test 70 mL/min/1.73 sq m ESTIMATED GFR IS NOT jimq=0153) ACCURATE CREATININE CLEARANCE IN PREDICTING GLOMERULAR FILTRATION RATE. ESTIMATED GFR IS NOT APPLICABLE FOR DIALYSIS PATIENTS. CBC W/PLT COUNT & AUTO [id number] 05:26:00 Test Item Value Reference Range Comments WHITE BLOOD CELL COUNT (BEAKER) (test edze=608) 8.0 K/ L 3.5-10.5 RED BLOOD CELL COUNT (BEAKER) (test cppk=588) 3.44 M/ L 3.93-5.22 HEMOGLOBIN (BEAKER) (test yuaj=310) 10.7 GM/DL 11.2-15.7 HEMATOCRIT (BEAKER) (test mdyn=221) 32.8 % 34.1-44.9 MEAN CORPUSCULAR VOLUME (BEAKER) (test crmv=752) 95.3 fL 79.4-94.8 MEAN CORPUSCULAR HEMOGLOBIN (BEAKER) (test 31.1 pg 25.6-32.2 vqyp=953) MEAN CORPUSCULAR HEMOGLOBIN CONC (BEAKER) (test 32.6 GM/DL 32.2-35.5 vnvg=230) RED CELL DISTRIBUTION WIDTH (BEAKER) (test 13.5 % 11.7-14.4 mjyi=307) PLATELET COUNT (BEAKER) (test rtko=022) 200 K/CU MM 150-450 MEAN PLATELET VOLUME (BEAKER) (test hkrq=599) 13.0 fL 9.4-12.3 NUCLEATED RED BLOOD CELLS (BEAKER) (test 0 /100 WBC 0-0 gxhp=580) NEUTROPHILS RELATIVE PERCENT (BEAKER) (test 64 % atyq=635) LYMPHOCYTES RELATIVE PERCENT (BEAKER) (test 22 % zrwv=287) MONOCYTES RELATIVE PERCENT (BEAKER) (test 7 % raet=808) EOSINOPHILS RELATIVE PERCENT (BEAKER) (test 6 % imfi=436) BASOPHILS RELATIVE PERCENT (BEAKER) (test 1 % liup=905) NEUTROPHILS ABSOLUTE COUNT (BEAKER) (test 5.11 K/ L 1.56-6.13 xrfx=561) LYMPHOCYTES ABSOLUTE COUNT (BEAKER) (test 1.73 K/ L 1.18-3.74 jtxp=594) MONOCYTES ABSOLUTE COUNT (BEAKER) (test 0.59 K/ L 0.24-0.36 ebxb=778) EOSINOPHILS ABSOLUTE COUNT (BEAKER) (test 0.47 K/ L 0.04-0.36 cuvs=460) BASOPHILS ABSOLUTE COUNT (BEAKER) (test 0.05 K/ L 0.01-0.08 qwyy=493) IMMATURE GRANULOCYTES-RELATIVE PERCENT (BEAKER) 0 % 0-1 (test ccma=4291) POCT-GLUCOSE [id number] 22:48:00 Test Item Value Reference Range Comments POC-GLUCOSE METER (BEAKER) 376 mg/dL 70-110 Notified SAMAN HERNANDEZ/TESTED AT [facility] (test akkh=9395) [address] [place] [address] POCT-GLUCOSE [id number] 22:04:00 Test Item Value Reference Range Comments POC-GLUCOSE METER (BEAKER) 434 mg/dL 70-110 Notified SAMAN HERNANDEZ/TESTED AT [facility] (test tjhw=9795) [address] [place] [address] POCT-GLUCOSE [id number] 18:16:00 Test Item Value Reference Range Comments POC-GLUCOSE METER (BEAKER) 340 mg/dL 70-110 Notified SAMAN HERNANDEZ/TESTED AT [facility] (test drsb=0441) [address] [place] [address] POCT-GLUCOSE [id number] 12:40:00 Test Item Value Reference Range Comments POC-GLUCOSE METER (BEAKER) 339 mg/dL 70-110 Notified SAMAN HERNANDEZ/TESTED AT [facility] (test bhtk=1905) [address] [place] [address] POCT-GLUCOSE [id number] 08:40:00 Test Item Value Reference Range Comments POC-GLUCOSE METER (BEAKER) 290 mg/dL 70-110 TESTED AT [address] (test tzvo=4880) [facility] [address] RAD, CHEST, 1 VIEW, NON [id number] 08:02:00Reason for exam:-> intubatedShould this be performed at the bedside?->YesFINAL REPORT Chest one view INDICATION: Intubated COMPARISON: 07/10/2017 IMPRESSION: Right greater than left lung mixed interstitial and partially confluent airspace opacities arestable and may reflect edema, multifocal pneumonitis, or combination thereof. A small left and traceright pleural effusion are suspected. The cardiac silhouette is enlarged. Mediastinal prominence is stable. No pneumothorax is seen. Signed: Guy Herculeseport Verified Date/Time: 07/11/2017 08:02:13 Reading Location: [facility]iology Reading Room POCT-GLUCOSE [id number] 06:33:00 Test Item Value Reference Range Comments POC-GLUCOSE METER (BEAKER) 354 mg/dL 70-110 Notified SAMAN HERNANDEZ/TESTED AT [facility] (test jwhv=6255) [address] [facility] [address] BLOOD GAS, [id number] 05:30:00 Test Item Value Reference Range Comments PH ARTERIAL (BEAKER) (test vqlp=497) 7.42 7.35-7.45 PCO2 ARTERIAL (BEAKER) (test gzow=929) 29 mmHg 35-45 PO2 ARTERIAL (BEAKER) (test wkax=402) 96 mmHg 80-90 O2 SATURATION ARTERIAL (BEAKER) (test wukk=732) 97.5 % 96.0-97.0 HCO3 ARTERIAL (BEAKER) (test clbz=682) 18 mmol/L 21-29 BASE EXCESS ARTERIAL (BEAKER) (test ojpl=265) -5.1 mmol/L -2.0-3.0 PATIENT TEMPERATURE (BEAKER) (test mnfl=9821) 37.0 C FIO2 (BEAKER) (test mxwk=3065) 21.0 % BASIC METABOLIC [id number] 03:15:00 Test Item Value Reference Range Comments SODIUM (BEAKER) (test 138 meq/L 136-145 qtgy=248) POTASSIUM (BEAKER) (test 3.9 meq/L 3.5-5.1 yrau=749) CHLORIDE (BEAKER) (test 109 meq/L 98-107 hvlp=139) CO2 (BEAKER) (test 18 meq/L 22-29 lybn=845) BLOOD UREA NITROGEN 18 mg/dL 7-21 (BEAKER) (test dtoa=524) CREATININE (BEAKER) (test 0.79 mg/dL 0.57-1.25 zvci=670) GLUCOSE RANDOM (BEAKER) 349 mg/dL 70-105 (test tgmk=461) CALCIUM (BEAKER) (test 8.2 mg/dL 8.4-10.2 jdqf=558) EGFR (BEAKER) (test 73 mL/min/1.73 sq m ESTIMATED GFR IS NOT fdpb=5264) ACCURATE CREATININE CLEARANCE IN PREDICTING GLOMERULAR FILTRATION RATE. ESTIMATED GFR IS NOT APPLICABLE FOR DIALYSIS PATIENTS. BLOOD GAS, [id number] 03:03:00 Test Item Value Reference Range Comments PH ARTERIAL (BEAKER) (test cpet=175) 7.46 7.35-7.45 PCO2 ARTERIAL (BEAKER) (test eirg=595) 31 mmHg 35-45 PO2 ARTERIAL (BEAKER) (test avwq=236) 62 mmHg 80-90 O2 SATURATION ARTERIAL (BEAKER) (test nenw=344) 93.1 % 96.0-97.0 HCO3 ARTERIAL (BEAKER) (test oyud=820) 21 mmol/L 21-29 BASE EXCESS ARTERIAL (BEAKER) (test tyio=594) -1.6 mmol/L -2.0-3.0 PATIENT TEMPERATURE (BEAKER) (test pofr=9123) 37.0 C FIO2 (BEAKER) (test epcv=8215) 60.0 % CBC W/PLT COUNT & AUTO [id number] 03:03:00 Test Item Value Reference Range Comments WHITE BLOOD CELL COUNT (BEAKER) (test jjhm=464) 11.5 K/ L 3.5-10.5 RED BLOOD CELL COUNT (BEAKER) (test cusp=627) 3.57 M/ L 3.93-5.22 HEMOGLOBIN (BEAKER) (test zlep=225) 11.0 GM/DL 11.2-15.7 HEMATOCRIT (BEAKER) (test ukhg=250) 33.3 % 34.1-44.9 MEAN CORPUSCULAR VOLUME (BEAKER) (test kfys=601) 93.3 fL 79.4-94.8 MEAN CORPUSCULAR HEMOGLOBIN (BEAKER) (test 30.8 pg 25.6-32.2 dsfh=064) MEAN CORPUSCULAR HEMOGLOBIN CONC (BEAKER) (test 33.0 GM/DL 32.2-35.5 oxdu=187) RED CELL DISTRIBUTION WIDTH (BEAKER) (test 13.4 % 11.7-14.4 olyw=567) PLATELET COUNT (BEAKER) (test xhzn=246) 181 K/CU MM 150-450 MEAN PLATELET VOLUME (BEAKER) (test wpnj=380) 13.1 fL 9.4-12.3 NUCLEATED RED BLOOD CELLS (BEAKER) (test 0 /100 WBC 0-0 qxya=614) NEUTROPHILS RELATIVE PERCENT (BEAKER) (test 87 % maoe=717) LYMPHOCYTES RELATIVE PERCENT (BEAKER) (test 6 % gqxl=998) MONOCYTES RELATIVE PERCENT (BEAKER) (test 5 % tgos=860) EOSINOPHILS RELATIVE PERCENT (BEAKER) (test 1 % dcld=266) BASOPHILS RELATIVE PERCENT (BEAKER) (test 1 % wznt=947) NEUTROPHILS ABSOLUTE COUNT (BEAKER) (test 9.98 K/ L 1.56-6.13 glbl=803) LYMPHOCYTES ABSOLUTE COUNT (BEAKER) (test 0.67 K/ L 1.18-3.74 flsl=694) MONOCYTES ABSOLUTE COUNT (BEAKER) (test 0.56 K/ L 0.24-0.36 tdxl=545) EOSINOPHILS ABSOLUTE COUNT (BEAKER) (test 0.12 K/ L 0.04-0.36 pgad=710) BASOPHILS ABSOLUTE COUNT (BEAKER) (test 0.07 K/ L 0.01-0.08 gzbg=015) IMMATURE GRANULOCYTES-RELATIVE PERCENT (BEAKER) 1 % 0-1 (test fvuz=3129) POCT-GLUCOSE [id number] 00:49:00 Test Item Value Reference Range Comments POC-GLUCOSE METER (BEAKER) 301 mg/dL 70-110 Notified SAMAN HERNANDEZ/TESTED AT [facility] (test iymi=4351) [address] [facility] [address] TROPONIN [id number] 00:36:00 Test Item Value Reference Range Comments TROPONIN I (BEAKER) (test utia=166) 0.17 ng/mL 0.00-0.03 Troponin I (TnI) levels must be interpreted [...] failure, acidosis, acute neurological disease, and persistent tachyarrhythmia.CREATINE KINASE (CK), TOTAL AND [id number] 00:33:00 Test Item Value Reference Range Comments CREATINE KINASE TOTAL (BEAKER) (test nqih=206) 168 U/L 29-200 CREATINE KINASE-MB (BEAKER) (test qsqf=648) 1.2 ng/mL 0.0-6.6 CREATINE KINASE-MB INDEX (BEAKER) (test iyqc=306) 0.7 % CK-MB Reference Range:<6.7 Normal6.7-10.0 Borderline>10.0 AbnormalPOCT-GLUCOSE [id number] 18:13:00 Test Item Value Reference Range Comments POC-GLUCOSE METER (BEAKER) 302 mg/dL 70-110 TESTED AT [address] (test ptsj=0263) [place] [address] TROPONIN [id number] 17:15:00 Test Item Value Reference Range Comments TROPONIN I (BEAKER) (test tpsi=524) 0.32 ng/mL 0.00-0.03 Troponin I (TnI) levels must be interpreted [...] failure, acidosis, acute neurological disease, and persistent tachyarrhythmia.CREATINE KINASE (CK), TOTAL AND [id number] 17:05:00 Test Item Value Reference Range Comments CREATINE KINASE TOTAL (BEAKER) (test ughg=351) 213 U/L 29-200 CREATINE KINASE-MB (BEAKER) (test korq=739) 2.1 ng/mL 0.0-6.6 CREATINE KINASE-MB INDEX (BEAKER) (test qzsr=852) 1.0 % CK-MB Reference Range:<6.7 Normal6.7-10.0 Borderline>10.0 AbnormalPOCT-GLUCOSE [id number] 12:22:00 Test Item Value Reference Range Comments POC-GLUCOSE METER (BEAKER) 240 mg/dL 70-110 TESTED AT [address] (test odcr=3323) [place] [id number] B-TYPE NATRIURETIC FACTOR (BNP)[id number] 12:01:00 Test Item Value Reference Range Comments B-TYPE NATRIURETIC PEPTIDE (BEAKER) (test 524 pg/mL 0-100 axyb=798) POCT-GLUCOSE [id number] 06:33:00 Test Item Value Reference Range Comments POC-GLUCOSE METER (BEAKER) 227 mg/dL 70-110 TESTED AT [facility] [address] (test bogy=5304) [facility] [address] COMPREHENSIVE METABOLIC [id number] 06:19:00 Test Item Value Reference Range Comments TOTAL PROTEIN (BEAKER) 6.7 gm/dL 6.0-8.3 (test cxsl=172) ALBUMIN (BEAKER) (test 3.2 g/dL 3.5-5.0 qofx=0328) ALKALINE PHOSPHATASE 77 U/L 40-150 (BEAKER) (test eygz=946) BILIRUBIN TOTAL (BEAKER) 0.9 mg/dL 0.2-1.2 (test tmrz=396) SODIUM (BEAKER) (test 139 meq/L 136-145 jzsw=719) POTASSIUM (BEAKER) (test 3.7 meq/L 3.5-5.1 fghs=718) CHLORIDE (BEAKER) (test 109 meq/L 98-107 eulb=333) CO2 (BEAKER) (test 18 meq/L 22-29 ghar=521) BLOOD UREA NITROGEN 13 mg/dL 7-21 (BEAKER) (test qccg=248) CREATININE (BEAKER) (test 0.69 mg/dL 0.57-1.25 hpbx=967) GLUCOSE RANDOM (BEAKER) 250 mg/dL 70-105 (test nbbj=515) CALCIUM (BEAKER) (test 8.0 mg/dL 8.4-10.2 fbac=534) AST (SGOT) (BEAKER) (test 18 U/L 5-34 qcyw=652) ALT (SGPT) (BEAKER) (test 13 U/L 6-55 nghg=481) EGFR (BEAKER) (test 85 mL/min/1.73 sq m ESTIMATED GFR IS NOT lmgu=3754) ACCURATE CREATININE CLEARANCE IN PREDICTING GLOMERULAR FILTRATION RATE. ESTIMATED GFR IS NOT APPLICABLE FOR DIALYSIS PATIENTS. BASIC METABOLIC [id number] 06:19:00 Test Item Value Reference Range Comments SODIUM (BEAKER) (test 139 meq/L 136-145 hhug=487) POTASSIUM (BEAKER) (test 3.7 meq/L 3.5-5.1 ettk=613) CHLORIDE (BEAKER) (test 109 meq/L 98-107 vckb=353) CO2 (BEAKER) (test 18 meq/L 22-29 yzfp=636) BLOOD UREA NITROGEN 13 mg/dL 7-21 (BEAKER) (test gmki=957) CREATININE (BEAKER) (test 0.69 mg/dL 0.57-1.25 jekz=981) GLUCOSE RANDOM (BEAKER) 250 mg/dL 70-105 (test vpdl=251) CALCIUM (BEAKER) (test 8.0 mg/dL 8.4-10.2 qehq=512) EGFR (BEAKER) (test 85 mL/min/1.73 sq m ESTIMATED GFR IS NOT ytmv=3390) ACCURATE CREATININE CLEARANCE IN PREDICTING GLOMERULAR FILTRATION RATE. ESTIMATED GFR IS NOT APPLICABLE FOR DIALYSIS PATIENTS. BLOOD GAS, [id number] 06:13:00 Test Item Value Reference Range Comments PH ARTERIAL (BEAKER) (test mizy=920) 7.42 7.35-7.45 PCO2 ARTERIAL (BEAKER) (test mjrk=959) 34 mmHg 35-45 PO2 ARTERIAL (BEAKER) (test jvsb=042) 106 mmHg 80-90 O2 SATURATION ARTERIAL (BEAKER) (test blfh=744) 98.0 % 96.0-97.0 HCO3 ARTERIAL (BEAKER) (test qwev=542) 22 mmol/L 21-29 BASE EXCESS ARTERIAL (BEAKER) (test vdox=147) -2.3 mmol/L -2.0-3.0 PATIENT TEMPERATURE (BEAKER) (test jkha=5246) 37.0 C FIO2 (BEAKER) (test ltdu=7805) 50.0 % CBC W/PLT COUNT & AUTO [id number] 05:53:00 Test Item Value Reference Range Comments WHITE BLOOD CELL COUNT (BEAKER) (test ztmq=073) 12.9 K/ L 3.5-10.5 RED BLOOD CELL COUNT (BEAKER) (test jyxe=323) 3.78 M/ L 3.93-5.22 HEMOGLOBIN (BEAKER) (test bqwh=226) 11.9 GM/DL 11.2-15.7 HEMATOCRIT (BEAKER) (test qxdo=997) 35.5 % 34.1-44.9 MEAN CORPUSCULAR VOLUME (BEAKER) (test yvwb=815) 93.9 fL 79.4-94.8 MEAN CORPUSCULAR HEMOGLOBIN (BEAKER) (test 31.5 pg 25.6-32.2 lzvf=276) MEAN CORPUSCULAR HEMOGLOBIN CONC (BEAKER) (test 33.5 GM/DL 32.2-35.5 vqcz=910) RED CELL DISTRIBUTION WIDTH (BEAKER) (test 13.5 % 11.7-14.4 tgiu=433) PLATELET COUNT (BEAKER) (test ouem=690) 198 K/CU MM 150-450 MEAN PLATELET VOLUME (BEAKER) (test sdmq=331) 12.7 fL 9.4-12.3 NUCLEATED RED BLOOD CELLS (BEAKER) (test 0 /100 WBC 0-0 lefp=018) NEUTROPHILS RELATIVE PERCENT (BEAKER) (test 77 % ukza=618) LYMPHOCYTES RELATIVE PERCENT (BEAKER) (test 14 % djel=628) MONOCYTES RELATIVE PERCENT (BEAKER) (test 7 % nedn=247) EOSINOPHILS RELATIVE PERCENT (BEAKER) (test 2 % ttpi=500) BASOPHILS RELATIVE PERCENT (BEAKER) (test 0 % rnqo=229) NEUTROPHILS ABSOLUTE COUNT (BEAKER) (test 9.92 K/ L 1.56-6.13 puzs=295) LYMPHOCYTES ABSOLUTE COUNT (BEAKER) (test 1.74 K/ L 1.18-3.74 hgky=955) MONOCYTES ABSOLUTE COUNT (BEAKER) (test 0.85 K/ L 0.24-0.36 pgci=184) EOSINOPHILS ABSOLUTE COUNT (BEAKER) (test 0.22 K/ L 0.04-0.36 ipzw=299) BASOPHILS ABSOLUTE COUNT (BEAKER) (test 0.05 K/ L 0.01-0.08 wpvd=647) IMMATURE GRANULOCYTES-RELATIVE PERCENT (BEAKER) 1 % 0-1 (test sjlk=7861) LACTIC ACID, ARTERIAL, WHOLE [id number] 05:17:00 Test Item Value Reference Range Comments LACTATE BLOOD ARTERIAL (2) (BEAKER) (test 0.8 mmol/L 0.5-2.2 wlhc=2049) Effective 09/02/2015: Units/Reference Range ChangeNew: 0.5-2.2 mmol/L Previous: 5 -20 mg/dLRAD, CHEST, 1 VIEW, NON [id number] 03:58:00Reason for exam:-> concern for aspirationShould this be performed at the bedside?->YesFINAL REPORT RAD, CHEST, 1 VIEW, NON DEPT INDICATION: concern for aspiration COMPARISON: Prior day's exam TECHNIQUE: Portable frontal view of the chest. IMPRESSION: Interval extubation.Stable cardiomegaly.Worsening pulmonary interstitial edema.No pneumothorax.No acute osseous abnormality. Signed: Jb Veronica MDReport Verified Date/Time: 07/10/2017 03:58:42 Reading Location: [facility] Ortho Consult Reading Room CT, BRAIN, WITHOUT [id number] 03:09:00Reason for exam:->Stroke evaluationFINAL REPORT CT, BRAIN, WITHOUT CONTRAST INDICATION: "StrokeStroke evaluation" TECHNIQUE: Noncontrast axial imaging was obtained [...] matter hypoattenuation consistent with chronic microvascular ischemic disease.Midline structures and posterior fossa within normal limits.No subacute territorial infarction or hyperdense thrombus.No acute intracranial hemorrhage.No acute hydrocephalus. Intact calvarium.Symmetric globes.The paranasal sinuses and mastoid air cells are well-aerated. IMPRESSION: No acute intracranial abnormality. Signed: Jb Veronica MDReport Verified Date/Time: 07/10/2017 03:09:32 Reading Location: [facility] B1 C013X Ortho Consult Reading Room POCT- GLUCOSE [id number] 00:20:00 Test Item Value Reference Range Comments POC-GLUCOSE METER (BEAKER) 200 mg/dL 70-110 TESTED AT [facility] [address] [place] [address] (test ofxj=8902) [facility] [address] POCT-GLUCOSE [id number] 20:32:00 Test Item Value Reference Range Comments POC-GLUCOSE METER (BEAKER) 237 mg/dL 70-110 TESTED AT [address] (test zrph=6120) [facility] [address] URINALYSIS W/ [id number] 20:08:00 Test Item Value Reference Range Comments COLOR (BEAKER) (test evtr=636) Light Yellow CLARITY (BEAKER) (test qvat=182) Clear SPECIFIC GRAVITY UA (BEAKER) (test jhvy=703) 1.009 1.001-1.035 PH UA (BEAKER) (test byxx=674) 5.5 5.0-8.0 PROTEIN UA (BEAKER) (test omqb=436) 70 mg/dL Negative GLUCOSE UA (BEAKER) (test bdfz=608) 50 mg/dL Negative KETONES UA (BEAKER) (test beht=233) Negative Negative BILIRUBIN UA (BEAKER) (test jcit=564) Negative Negative BLOOD UA (BEAKER) (test uxsi=943) Negative Negative NITRITE UA (BEAKER) (test kfsj=739) Negative Negative LEUKOCYTE ESTERASE UA (BEAKER) (test shlc=704) Trace Negative UROBILINOGEN UA (BEAKER) (test qqlq=077) 0.2 mg/dL 0.2-1.0 RBC UA (BEAKER) (test reaf=252) < /HPF WBC UA (BEAKER) (test jnyv=259) 25 /HPF BACTERIA (BEAKER) (test icas=129) Rare MUCUS (BEAKER) (test ghlt=3696) Rare SQUAMOUS EPITHELIAL (BEAKER) (test jfnu=944) 1 /HPF SOURCE(BEAKER) (test hnhr=6509) POCT-GLUCOSE [id number] 18:44:00 Test Item Value Reference Range Comments POC-GLUCOSE METER (BEAKER) 174 mg/dL 70-110 TESTED AT [address] (test vfau=0635) [facility] [address] HEMOGLOBIN [id number] 14:47:00 Test Item Value Reference Range Comments HEMOGLOBIN A1C (BEAKER) (test vpaa=394) 12.4 % 4.3-6.1 POCT-GLUCOSE [id number] 11:44:00 Test Item Value Reference Range Comments POC-GLUCOSE METER (BEAKER) 149 mg/dL 70-110 TESTED AT [address] (test agoy=0870) [facility] [address] RAD, CHEST, 1 VIEW, NON [id number] 07:42:00Reason for exam:-> intubatedShould this be performed at the bedside?->YesFINAL REPORT AP view of the chest dated 07/09/2017 COMPARISON: September 26, 2003 CLINICAL INFORMATION: intubated Comment: Heart is normal in size. Pulmonary vasculature is unremarkable. Subsegmental atelectasis is seen in the right lower lobe. Opacity is seen in the left lower lobe suggestive pneumonia or subsegmental atelectasis. The rest of the lungs are clear. There is small left pleural effusion. No pneumothorax is noted. Endotracheal tube is present. IMPRESSION: Left lower lobe subsegmental atelectasis versus pneumonia and right lower lobe subsegmental atelectasis. Signed: Clovis Fischer Verified Date/ Time: 07/09/2017 07:42:12 Reading Location: [place] [address]Y CT Body Reading Room [facility] BRAIN WITHOUT IV CONTRAST - [id number] 07:37:00Reason for exam:->L. MCA strokeFINAL REPORT CT Head without contrast CLINICAL HISTORY: [...] skull is intact. The visualized paranasal sinuses arewell-aerated. IMPRESSION : Suspected left MCA posterior distribution infarction without hemorrhage. Signed: Rossi Joseph Verified Date/Time: 07/09/2017 07:37:39 Reading Location: [facility] C013V Neuro Reading Room TSH/FREE T4 IF [id number] 05:41:00 Test Item Value Reference Range Comments THYROID STIMULATING HORMONE (BEAKER) (test 0.60 uIU/mL 0.35-4.94 vybf=776) BASIC METABOLIC [id number] 04:33:00 Test Item Value Reference Range Comments SODIUM (BEAKER) (test 138 meq/L 136-145 pjik=816) POTASSIUM (BEAKER) (test 3.4 meq/L 3.5-5.1 psjr=805) CHLORIDE (BEAKER) (test 107 meq/L 98-107 ydbu=425) CO2 (BEAKER) (test 20 meq/L 22-29 tabd=979) BLOOD UREA NITROGEN 17 mg/dL 7-21 (BEAKER) (test xgdv=117) CREATININE (BEAKER) (test 0.68 mg/dL 0.57-1.25 crrg=983) GLUCOSE RANDOM (BEAKER) 118 mg/dL 70-105 (test roqg=848) CALCIUM (BEAKER) (test 7.9 mg/dL 8.4-10.2 dxok=182) EGFR (BEAKER) (test mL/min/1.73 sq m INSUFFICIENT CLINICAL DATA xipa=6420) TO CALCULATE ESTIMATED GFR. LIPID [id number] 04:30:00 Test Item Value Reference Range Comments TRIGLYCERIDES (BEAKER) (test zktm=869) 300 mg/dL CHOLESTEROL (BEAKER) (test fzyy=628) 204 mg/dL HDL CHOLESTEROL (BEAKER) (test qqvb=907) 33 mg/dL LDL CHOLESTEROL CALCULATED (BEAKER) (test 111 mg/dL lawd=329) Triglyceride Reference Range: Low Risk <150 Borderline 150- 199 High Risk 200-499 Very High Risk >=500Cholesterol Reference Range: Low Risk <200 Borderline 200-239 High Risk > 240HDL Cholesterol Reference Range: Low Risk >=60 High Risk <40LDL Cholesterol Reference Range: Optimal <100 Near Optimal 100-129 Borderline 130-159 High 160-189 Very High >=190BLOOD GAS, [id number] 04:11:00 Test Item Value Reference Range Comments PH ARTERIAL (BEAKER) (test tavj=715) 7.42 7.35-7.45 PCO2 ARTERIAL (BEAKER) (test xqyn=754) 37 mmHg 35-45 PO2 ARTERIAL (BEAKER) (test einc=787) 90 mmHg 80-90 O2 SATURATION ARTERIAL (BEAKER) (test jefl=114) 97.1 % 96.0-97.0 HCO3 ARTERIAL (BEAKER) (test umxu=710) 24 mmol/L 21-29 BASE EXCESS ARTERIAL (BEAKER) (test unvx=145) -0.6 mmol/L -2.0-3.0 PATIENT TEMPERATURE (BEAKER) (test yeah=7828) 37.0 C FIO2 (BEAKER) (test hvsw=0507) 40.0 % CBC W/PLT COUNT & AUTO [id number] 04:10:00 Test Item Value Reference Range Comments WHITE BLOOD CELL COUNT (BEAKER) (test vsbx=292) 12.9 K/ L 3.5-10.5 RED BLOOD CELL COUNT (BEAKER) (test guih=077) 3.88 M/ L 3.93-5.22 HEMOGLOBIN (BEAKER) (test opla=713) 12.0 GM/DL 11.2-15.7 HEMATOCRIT (BEAKER) (test ogit=556) 35.8 % 34.1-44.9 MEAN CORPUSCULAR VOLUME (BEAKER) (test xico=626) 92.3 fL 79.4-94.8 MEAN CORPUSCULAR HEMOGLOBIN (BEAKER) (test 30.9 pg 25.6-32.2 htly=414) MEAN CORPUSCULAR HEMOGLOBIN CONC (BEAKER) (test 33.5 GM/DL 32.2-35.5 nysl=230) RED CELL DISTRIBUTION WIDTH (BEAKER) (test 13.4 % 11.7-14.4 riqk=225) PLATELET COUNT (BEAKER) (test otnw=945) 203 K/CU MM 150-450 MEAN PLATELET VOLUME (BEAKER) (test yfbp=177) 12.7 fL 9.4-12.3 NUCLEATED RED BLOOD CELLS (BEAKER) (test 0 /100 WBC 0-0 vcku=510) NEUTROPHILS RELATIVE PERCENT (BEAKER) (test 75 % apjv=442) LYMPHOCYTES RELATIVE PERCENT (BEAKER) (test 18 % dxjg=964) MONOCYTES RELATIVE PERCENT (BEAKER) (test 6 % ncov=758) EOSINOPHILS RELATIVE PERCENT (BEAKER) (test 1 % tsfa=052) BASOPHILS RELATIVE PERCENT (BEAKER) (test 0 % zigm=370) NEUTROPHILS ABSOLUTE COUNT (BEAKER) (test 9.66 K/ L 1.56-6.13 rmnf=341) LYMPHOCYTES ABSOLUTE COUNT (BEAKER) (test 2.30 K/ L 1.18-3.74 qgkr=863) MONOCYTES ABSOLUTE COUNT (BEAKER) (test 0.76 K/ L 0.24-0.36 xgyt=832) EOSINOPHILS ABSOLUTE COUNT (BEAKER) (test 0.10 K/ L 0.04-0.36 awao=278) BASOPHILS ABSOLUTE COUNT (BEAKER) (test 0.04 K/ L 0.01-0.08 fekt=399) IMMATURE GRANULOCYTES-RELATIVE PERCENT (BEAKER) 0 % 0-1 (test rahu=9661) BASIC METABOLIC [id number] 23:50:00 Test Item Value Reference Range Comments SODIUM (BEAKER) (test 139 meq/L 136-145 lahn=710) POTASSIUM (BEAKER) (test 3.5 meq/L 3.5-5.1 lwig=468) CHLORIDE (BEAKER) (test 106 meq/L 98-107 iqnn=302) CO2 (BEAKER) (test 22 meq/L 22-29 guib=553) BLOOD UREA NITROGEN 19 mg/dL 7-21 (BEAKER) (test xbol=761) CREATININE (BEAKER) (test 0.68 mg/dL 0.57-1.25 oueo=699) GLUCOSE RANDOM (BEAKER) 114 mg/dL 70-105 (test vsfp=232) CALCIUM (BEAKER) (test 8.2 mg/dL 8.4-10.2 olpp=749) EGFR (BEAKER) (test mL/min/1.73 sq m INSUFFICIENT CLINICAL DATA mhvn=9498) TO CALCULATE ESTIMATED GFR. HEPATIC FUNCTION [id number] 23:26:00 Test Item Value Reference Range Comments TOTAL PROTEIN (BEAKER) (test oqmj=929) 6.7 gm/dL 6.0-8.3 ALBUMIN (BEAKER) (test dqls=6643) 3.3 g/dL 3.5-5.0 BILIRUBIN TOTAL (BEAKER) (test qwkj=986) 0.4 mg/dL 0.2-1.2 BILIRUBIN DIRECT (BEAKER) (test xukg=095) 0.2 mg/dL 0.1-0.5 ALKALINE PHOSPHATASE (BEAKER) (test aigd=460) 76 U/L 40-150 AST (SGOT) (BEAKER) (test cgbu=738) 22 U/L 5-34 ALT (SGPT) (BEAKER) (test umqb=411) 16 U/L 6-55 CBC W/PLT COUNT & AUTO [id number] 23:25:00 Test Item Value Reference Range Comments WHITE BLOOD CELL COUNT (BEAKER) (test sjbr=242) 14.1 K/ L 3.5-10.5 RED BLOOD CELL COUNT (BEAKER) (test xvni=775) 4.01 M/ L 3.93-5.22 HEMOGLOBIN (BEAKER) (test wehu=466) 12.6 GM/DL 11.2-15.7 HEMATOCRIT (BEAKER) (test fvln=047) 36.7 % 34.1-44.9 MEAN CORPUSCULAR VOLUME (BEAKER) (test rild=094) 91.5 fL 79.4-94.8 MEAN CORPUSCULAR HEMOGLOBIN (BEAKER) (test 31.4 pg 25.6-32.2 yfok=044) MEAN CORPUSCULAR HEMOGLOBIN CONC (BEAKER) (test 34.3 GM/DL 32.2-35.5 awcv=267) RED CELL DISTRIBUTION WIDTH (BEAKER) (test 13.2 % 11.7-14.4 nfwl=973) PLATELET COUNT (BEAKER) (test ylmj=108) 212 K/CU MM 150-450 MEAN PLATELET VOLUME (BEAKER) (test vwdd=701) 12.6 fL 9.4-12.3 NUCLEATED RED BLOOD CELLS (BEAKER) (test 0 /100 WBC 0-0 tfie=905) NEUTROPHILS RELATIVE PERCENT (BEAKER) (test 78 % cjgu=253) LYMPHOCYTES RELATIVE PERCENT (BEAKER) (test 15 % xeql=570) MONOCYTES RELATIVE PERCENT (BEAKER) (test 7 % qwgq=067) EOSINOPHILS RELATIVE PERCENT (BEAKER) (test 1 % zzjl=506) BASOPHILS RELATIVE PERCENT (BEAKER) (test 0 % kmee=738) NEUTROPHILS ABSOLUTE COUNT (BEAKER) (test 10.90 K/ L 1.56-6.13 jksx=191) LYMPHOCYTES ABSOLUTE COUNT (BEAKER) (test 2.10 K/ L 1.18-3.74 ygxp=634) MONOCYTES ABSOLUTE COUNT (BEAKER) (test 0.92 K/ L 0.24-0.36 umbf=686) EOSINOPHILS ABSOLUTE COUNT (BEAKER) (test 0.09 K/ L 0.04-0.36 ejyc=179) BASOPHILS ABSOLUTE COUNT (BEAKER) (test 0.03 K/ L 0.01-0.08 shcx=247) IMMATURE GRANULOCYTES-RELATIVE PERCENT (BEAKER) 0 % 0-1 (test wjdz=0189) PROTHROMBIN TIME/[id number] 23:12:00 Test Item Value Reference Range Comments PROTIME (BEAKER) (test evgj=515) 14.2 seconds 11.7-14.7 INR (BEAKER) (test huth=604) 1.1 <=5.9 RECOMMENDED COUMADIN/WARFARIN INR THERAPY RANGESSTANDARD DOSE: 2.0 - 3.0 Includes: PROPHYLAXIS forvenous thrombosis, systemic embolization; TREATMENT for venous thrombosis and/or pulmonary embolus.HIGH RISK: Target INR is 2.5-3.5 for patients with mechanical heart valves.POCT-GLUCOSE [id number] 21:38:00 Test Item Value Reference Range Comments POC-GLUCOSE METER (BEAKER) 94 mg/dL 70-110 TESTED AT [facility] [address] [facility] (test udor=4720) [facility] [address] [place], COMMON CAROTID OR INNOMINATE W EXTRACRANIAL CIRC.2017-07-08 18:24:00Reason for exam:->ischemic stroke; possible mechanical thrombectomyFINAL REPORT DATE: 07/08/2017 ATTENDING: Tristen Puri MD ASSISTANTS : Hill HERNANDEZ, Eleno Solorzano PREOPERATIVE DIAGNOSIS: Acute Left MCA Stroke, MCA M2 division occlusion POSTOPERATIVE DIAGNOSIS: Acute Left MCA Stroke, MCA M2 division high grade stenosis PROCEDURE PERFORMED: 1. Diagnostic Angiogram2. Intra-arterial thrombolysis with Aggrastat infusion [34ml (50mcg/ml) over 30 minutes] ANESTHESIOLOGIST: Rocco ANESTHESIA: General COMPLICATIONS: None ESTIMATED BLOOD LOSS: Less than 15ml VESSELS STUDIED:*Left common carotid artery x 1*Left internal carotid artery x >10*Right common femoral artery x1 MATERIALS EMPLOYED:1. 8 [place] [employer] short sheath 2. 5 [place] [employer] 125cm diagnostic catheter3. Bentson guidewire4. Terumo 0.035 LT glidewire5. Flowgate 8f Balloon Guide Catheter8. 8 [place] [employer] Angioseal device INDICATIONS:The patient is a 67-year- old female with history of hypertension, diabetes and prior stroke who presented with acute onset aphasia in her hometown of [place] around 11:00 AM. She was evaluated and transferred to [facility] further evaluation treatment. On arrival, the patient had an NIHSS stroke scale of 11 with significant aphasia. Her CTA suggested a left MCA lower division M2 proximal occlusion and her perfusion study showed decreased perfusion in this territory. Therefore, acute neurovascular intervention was recommended. Whilethe patient was being prepared for the procedure [...] The anesthesia team performed general anesthesia so thatimages would be more clear and ranch cutoffs [...] the puncture site was confirmed, a 8 [place] [employer] short sheath was inserted over a Bentson wire and was maintained on heparinized saline flush throughout the remainder of the procedure. Using coaxial technique, a preflushed 5 [place] [employer] 125cm diagnostic glide catheter on constant heparinized saline flush was placed through a pre- flushed and pre-prepped 8 [place] [employer] Flowgate balloon Guide catheter. The two catheters [...] was advanced into the proximal internal carotid artery.The diagnostic catheter was removed, and the balloon guide again back flushed, antegrade flushed andmaintained on heparinized flushed throughout remainder the procedure. [...] angiographic views showed modestly improved caliber and minimalappearance of thrombus in the vessel lumen. An Aggrastat IV drip was initiated. We retracted the flowgate catheter using the live fluoroscopy and puffing technique two sure there is no injury to the internal carotid artery from the flowgate balloon. None was seen. [facility] The femoral sheath was removed and hemostasis achieved with an 8 [place] [employer] Angioseal and manual compression. The patient tolerated the procedure well and was present transported from the images read in unchanged neurological status without groin hematoma and with good distal lower extremity pulses. The patient was transferred to the neurological intensive care unit to be monitored as per protocol. FINDINGS:RIGHT COMMON FEMORAL ARTERY (DSA, PA X 1)Normal common femoral artery was puncture site above the bifurcation and below the markers of the internal ligament. There is slow flow in one of the distal femoral branches suggestive of downstream atherosclerotic disease. LEFT COMMON CAROTID ARTERY (DSA, PA, LATERAL, CERVICAL ) The distal cervical common carotid as well [...] internal carotid artery with a left MCA inferiordivision M2 segment high-grade stenosis with the appearance of superimposed layering acute thrombus within the lumen. Post intra- arterial thrombolysis, there is reduction in the appearance of intraluminal clot with modestly improved physiological filling of the distal MCA M2 inferior division branches. There is a single inferior distal branch which fills slightly delayed less than one second comparedto the remainder of the MCA branches. There is ever so slightly decreased capillary phase blush in the lower third of the inferior division branches distally in the parietal area. No aneurysms or other vascular lesions are seen. There is no significant atherosclerosis or stenosis in other vessels noted. The venous phase demonstrates patent transverse sinuses. IMPRESSION1. High-grade stenosis of theleft MCA inferior division proximal M2 segment secondary to underlying atherosclerotic disease with superimposed layering of thrombus. Post-intra- arterial thrombolysis with Aggrastat infusion, there isreduced intravascular thrombus and modestly improved flow in the MCA M2 inferior division branches. Yet, the chronic high-grade stenosis secondary to atherosclerotic disease of the proximal M2 inferiordivision origin remains. FACULTY ATTESTATION: I, Tristen Puri M.D., was present for the entirety of the procedure. I performed or directly supervised all aspects of the procedure. I performed allcritical aspects of the case. I interpreted the images and reported the results. Signed: Tristen Puri MDReport Verified Date/Time: 07/08/2017 18: 24:25 Reading Location: [facility] CTANGIO [id number] 15:00:00FINAL REPORT CLINICAL HISTORY: Stroke TECHNIQUE: Contiguous contrast-enhancedaxial images through the neck followed by axial [...] FINDINGS: There is no evidence for a viejas of Steele first order branch vessel occlusion. [...] No aneurysms are seen. There is suspected occlusionof the left transverse sigmoid sinus. The major intradural venous sinuses are otherwise patent. There is a 60% stenosis of the proximal right internal carotid artery by NASCET criteria. There is 20%stenosis of the proximal left internal carotid artery [...] clear. IMPRESSION: Suspected occlusion of the left middlecerebral artery M2 posterior/inferior division branch vessel with corresponding CT perfusion changes. The findings were discussed with the stroke neurologist and neurosurgeon at the time of dictation. Soft tissue fullness of the right palatine tonsil and aryepiglottic fold for which ENT consultation is recommended to exclude neoplasm on a nonemergent basis. Signed: Rossi Joseph MDReport Verified Date/Time: 2017 15:00:43 Reading Location: [address] Neuro Reading Room CT, CAROTID , [id number] 15:00:00FINAL REPORT CLINICAL HISTORY: Stroke TECHNIQUE: Contiguous contrast-enhancedaxial images through the neck followed by axial [...] FINDINGS: There is no evidence for a viejas of Steele first order branch vessel occlusion. [...] No aneurysms are seen. There is suspected occlusionof the left transverse sigmoid sinus. The major intradural venous sinuses are otherwise patent. There is a 60% stenosis of the proximal right internal carotid artery by NASCET criteria. There is 20%stenosis of the proximal left internal carotid artery [...] clear. IMPRESSION: Suspected occlusion of the left middlecerebral artery M2 posterior/inferior division branch vessel with corresponding CT perfusion changes. The findings were discussed with the stroke neurologist and neurosurgeon at the time of dictation. Soft tissue fullness of the right palatine tonsil and aryepiglottic fold for which ENT consultation is recommended to exclude neoplasm on a nonemergent basis. Signed: Rossi Joseph MDReport Verified Date/Time: 2017 15:00:43 Reading Location: [address] Neuro Reading Room CT, CEREBRAL PERFUSION [id number] 15:00:00FINAL REPORT CLINICAL HISTORY: Stroke TECHNIQUE: Contiguous contrast-enhancedaxial images through the neck followed by axial [...] FINDINGS: There is no evidence for a viejas of Steele first order branch vessel occlusion. [...] No aneurysms are seen. There is suspected occlusionof the left transverse sigmoid sinus. The major intradural venous sinuses are otherwise patent. There is a 60% stenosis of the proximal right internal carotid artery by NASCET criteria. There is 20 %stenosis of the proximal left internal carotid artery [...] clear. IMPRESSION: Suspected occlusion of the left middlecerebral artery M2 posterior/ inferior division branch vessel with corresponding CT perfusion changes. The findings were discussed with the stroke neurologist and neurosurgeon at the time of dictation. Soft tissue fullness of the right palatine tonsil and aryepiglottic fold for which ENT consultation is recommended to exclude neoplasm on a nonemergent basis. Signed: Rossi Joseph MDReport Verified Date/ Time: 07/08/2017 15:00:43 Reading Location: [address] Neuro Reading Room [facility], BRAIN/STROKE [id number] 14:24:00FINAL REPORT CT Head without contrast CLINICAL HISTORY: [...] is generalized parenchymal volume loss without hydrocephalus, midlineshift, or apparent mass effect. The skull is intact. IMPRESSION: There is no definitive CT evidenceof acute infarct. There is no intracranial hemorrhage. The findings were discussed with the stroke neurologist at 2:25 PM. Signed: Rossi Joseph MDReport Verified Date/Time: 07/08/2017 14:24:44 Reading Location: [facility] B1 C013V Neuro Reading Room
--- NOTE | 2017-08-01 07:29 | RAD REPORT ---
EXAM DESCRIPTION: CT - Ct Stroke Brain Wo Cont - 08/01/2017 7:11 am CLINICAL HISTORY: Found on floor, left-sided weakness, stroke CLINICAL HISTORY: July 08 TECHNIQUE: Axial 5 millimeter thick images of the head were obtained without IV contrast. All CT scans are performed using dose optimization technique as appropriate and may include automated exposure control or mA/KV adjustment according to patient size. FINDINGS: No intracranial hemorrhage, mass, or cerebral edema. No acute cortical based infarction. A trophy and chronic ischemic changes are present moderate in degree. Ventricular size is in proportion . No extra-axial fluid collections. Lowry matter-white matter differentiation is preserved. Arterial and physiologic calcifications are present. Visualized portions of the mastoid air cells, paranasal sinuses, and orbits are unremarkable. Findings telephoned to Sumit Page at 7:25 a.m.. IMPRESSION: Moderate severity atrophy and chronic ischemic change similar to recent imaging. No hemorrhage, acute cortical infarction or other acute intracranial finding. Chronic ischemic changes can mask nonhemorrhagic acute infarction. MR brain followup can be obtained if there is ongoing concern for acute ischemia.
--- NOTE | 2017-08-01 07:31 | RAD REPORT ---
EXAM DESCRIPTION: CT - C Spine Wo Con - 08/01/2017 7:11 am CLINICAL HISTORY: Patient found on ground, neck pain, uncertain precipitating event COMPARISON: None. TECHNIQUE: Axial 2 mm thick images of the cervical spine were obtained with sagittal and coronal rec onstruction images generated and reviewed. All CT scans are performed using dose optimization technique as appropriate and may include automated exposure control or mA/KV adjustment according to patient size. FINDINGS: Exam is degraded by motion. Cervical body height and alignment appear normal. There is amado e left lateral tilt and slight rotation due to positioning artifact. Degenerative changes present at the dens anterior arch C1 level. Mild disc space narrowing seen. Posterior endplate spurring changes are present. Fracture or acute bone process not identified. No significant disc space narrowing. No p athologic bone process. No paraspinal mass or hematoma. Central canal detail is inherently limited on CT imaging. IMPRESSION: Motion degraded examination shows scattered mild degenerative change with no acute findi ng identifiable.
[2017-08-01 08:28] LABS: Absolute Lymphocytes (CBC) 1.2 K/uL (0.7-4.9); Absolute Monocytes 0.6 K/uL (0.1-1.3); Absolute Neutrophil 14.8 K/uL (1.8-8.0); Basophils % 0.4 % (0-1.3); Eosinophils % 0.2 % (0-4.4); Hematocrit 40.2 % (36.0-45.0); Lymphocytes % 7.2 % (15.3-44.8); MCH 31.1 pg (27.0-35.0); MCV 94.4 fL (80-100); MPV 11.8 fL (7.6-11.3); Monocytes % 3.4 % (3.3-12.3); RBC Red Blood Cell Count 4.26 M/uL (3.86-4.86)
[2017-08-01 08:36] LABS: Potassium 3.8 mEq/L (3.6-5.0)
[2017-08-01 08:42] LABS: Albumin 3.7 g/dL (3.2-5.5); Bilirubin Direct 0.1 mg/dL (0-0.2); Bilirubin Total 0.9 mg/dL (0.3-1.2); Protein, Total 8.1 g/dL (6.0-8.3)
[2017-08-01 08:45] LABS: CKMB Creatine Kinase MB 1.9 ng/ml (0.3-4.0)
--- NOTE | 2017-08-01 09:19 | RAD REPORT ---
EXAM DESCRIPTION: Alex Single View08/01/2017 7:36 am CLINICAL HISTORY: Chest pain/code stroke COMPARISON: none FINDINGS: The lungs appear clear of acute infiltrate. The heart is mildly enlarged IMPRESSION: No acute abnormalities displayed
[2017-08-01 09:23] LABS: Protime INR 0.94
[2017-08-01] MEDS ORDERED: INSULIN -REGULAR HUMAN 50 UNIT/0.5 ML ML ONE ×2 (09:23→10:14)
[2017-08-01] MEDS ORDERED: NA CHLORIDE 0.9% 2,000 ML ONE (09:23)
[2017-08-01 09:29] LABS: Blood Morphology Comment NOT SEEN (NOT SEEN); Platelet Estimate ADEQ; Urine White Blood Cell Casts OK
[2017-08-01 09:32] LABS: Barbiturates NEGATIVE; Benzodiazepines NEGATIVE; Cocaine NEGATIVE; METHAMPHETAM NEGATIVE; Opiates NEGATIVE; Phencyclidine NEGATIVE; THC Cannibis NEGATIVE
[2017-08-01 09:36] LABS: Urine Blood 2+ (NEG); Urine Glucose 2+ (NEG); Urine Protein 3+ (NEG); Urine pH 6.5 (5.0-7.0)
[2017-08-01] MEDS ORDERED: LABETALOL 20 MG/4ML SYRINGE IV ONE (09:40)
--- NOTE | 2017-08-01 09:49 | ER ---
Nurse's Notes [facility] Name: Apoorva Christie Age: 67 yrs Sex: Female : 1950 Arrival Date: 08/01/2017 Time: 06:40 Bed 3 Private MD: Chapin Arias R Diagnosis: Altered mental status, unspecified;Diabetes mellitus due to underlying condition with hyperglycemia Presentation: 08/01 06:41 Presenting complaint: Child states: that he found pt on the floor of his son's room, fc incont, confused and having left sided weakness. Last well known was 2029 last night when pt went to bed. Transition of care: patient was not received from another setting of care. An acute neurological deficit is present. The charge nurse has been notified. The patient has been moved to a treatment area. Pre-hospital glucose is not applicable to this patient. Onset of symptoms was August 01, 2017. Care prior to arrival: None. 06:41 Method Of Arrival: Wheelchair fc 06:41 Acuity: AWA 2 fc Triage Assessment: 06:45 General: I go with pt to CT. pt is very combative in CT, very confused. pt will not ch hold still. when pt placed on table, pt begins to flail her legs, kicking and trying to roll over. pt reoriented several times, unable pt head restrained with velcro strap due to pt flailing. pt then begins to yell at us and threaten to have a seizure or urinate. I tell pt if she will stay still we can removed the velcro straps. vecro straps removed, pt is immediately a danger to herself and tries to roll off the ct table. pt is oriented to person only. CT is delayed slightly due to pt movement and pt being combative. . 06:50 The onset of the patients symptoms was at an unknown time. General: Appears in no ch apparent distress. comfortable, Behavior is agitated, anxious, restless, uncooperative. Pain: Denies pain. 06:50 The onset of the patients symptoms was July 31, 2017 at 20:30. General: pt last seen ch normal last night before bed at 2030. pt will not follow commands enough to perform a stroke scale. pt does not understand to run heel up and down leg, or to touch my finger. pt tested to the extent we can. . 06:50 EENT: No signs and/or symptoms were reported regarding the EENT system. Neuro: Level of ch Consciousness is awake, confused, Oriented to person, Commuter Pilot are equal bilaterally Moves all extremities. Full function pt will resist us moving her, can move all of her arms and legs. pt is very strong, and tried to kick me. pt will not raise her leg when I ask, but pt will rollover in the bed, and push and flail dc legs. Gait is unsteady, Speech is normal, Facial symmetry appears normal, Facial symmetry: tongue is midline, Pupils are sluggish, Intact Reports pt denies any of theses symptoms, states she is thristy and needs to urinate. Respiratory: Airway is patent Trachea midline Respiratory effort is even, unlabored, Respiratory pattern is regular, Breath sounds are clear bilaterally. GI: Abdomen is round obese, Bowel sounds present X 4 quads. Abd is soft and non tender X 4 quads. Reports diarrhea, nausea, vomiting. : Parent/caregiver report the patient having incontinence since 06/30/17. Derm: Skin is dry, Skin is pale, Skin temperature is cool pt has swelling to dc eyes. family states her eye lids are always a little swollen. Musculoskeletal: No signs and/or symptoms reported regarding the musculoskeletal system. 07:52 General: Appears in no apparent distress. comfortable. ch 08:10 General: I recollect pt labs now. . ch 08:16 General: 0640, sumit page at bedside for assessment of pt. 0641, code stroke called. ch 0645, I go with pt to CT. 0708, pt returned from ct. 0710, IV established, 22in R hand started by Kaila. pt has to be physically restrained by myself and lab inorder to get pt to hold still for IV start. 0715 pt blood sent to the lab by solar lab technician. pt is rolling all around in bed, will not follow commands or cooperate. pt states she needs to urinate again. pt changed out of stool and urine soaked clothes, placed in clean gown. pt sheets changed, covered in blankets. 0731 adrián performs pt ekg with assitance from myself. pt is very restless. 0734, evelia performs x ray with my assistance due to pt not holding still. 0729, I peform swallow screening on pt. pt tolerates well. . Stroke Activation: Symptom onset > 6 hours Physician: Stroke Attending; Name: ; Notified At: ; Arrived At: Physician: Chief Stroke Resident; Name: ; Notified At: ; Arrived At: Physician: Stroke Resident; Name: ; Notified At: ; Arrived At: Physician: ED Attending; Name: Jak; Notified At: 06:41; Arrived At: 06:41 Physician: ED Resident; Name: ; Notified At: ; Arrived At: Historical: - Allergies: 06:57 codeine sulfate; fc - PMHx: 06:57 Cirrhosis; Diabetes - IDDM; Hypertension; meningitis; progressive tremors; CVA; brain fc blockage; - PSHx: 06:57 Cholecystectomy; Knee surgery; ; Hysterectomy; fc - Immunization history:: Last tetanus immunization: unknown. - Social history:: Smoking status: Patient/guardian denies using tobacco. Screenin:51 Abuse screen: Denies threats or abuse. Nutritional screening: No deficits noted. fc Tuberculosis screening: No symptoms or risk factors identified. 08:20 Fall Risk Fall in past 12 months (25 points). Secondary diagnosis (15 points) IV access ch (20 points). Ambulatory Aid- None/Bed Rest/Nurse Assist (0 pts). Gait- Impaired (20 pts.). Mental Status- Overestimates/Forgets Limitations (15 pts.). Total Ornelas Fall Scale indicates High Risk Score (45 or more points). Fall prevention measures have been instituted. Side Rails Up X 2 Placed Close to Nursing Station Frequent Obs/Assessments Occuring Family Present and informed to notify staff if the need to leave the bedside As available patient and family educated on Fall Prevention Program and Strategies. Assessment: 07:29 Patient has been NPO before screening. The patient is alert, and able to follow ch commands. The patient does not exhibit slurred or garbled speech. The patient is not exhibiting difficulty speaking. The patient does not exhibit difficulty understanding words. The patient is able to swallow own secretions with no drooling or need for suction. Patient tolerated one teaspoon of water. No drooling, immediate coughing, gurgling, or clearing of the throat was noted. The patient tolerated 90mL of water. No drooling, immediate coughing, gurgling, or clearing of the throat was noted. The patient passed the bedside swallow screening. Oral medications may be given as ordered. Contact Physician for further diet orders. Provider notified of bedside swallow screening results: Sumit DOBBS. 08:18 T-PA (Activase) Screening: Contraindications: Patient reports onset of signs and ch symptoms of stroke greater than 6 hours ago: Yes. 08:20 Reassessment: Patient appears in no apparent distress at this time. No changes from previously documented assessment. Patient and/or family updated on plan of care and expected duration. Pain level reassessed. pt is restless in bed, uncovering and recovering her self. pt has rolled over in bed twice. 08:39 Reassessment: Julian Mcnulty and Jaimee Moreno notified of critical lab values ss Glucose 459 and Lactate 18. 09:24 Reassessment: pt will not follow commands to perform stroke scale. pt will move all ch arms and legs. bp changed to different arm and checked manually. bp is in the 200's/90's consistantly. sumit lugo notified. 09:36 Reassessment: Patient appears in no apparent distress at this time. No changes from previously documented assessment. Patient and/or family updated on plan of care and expected duration. Pain level reassessed. Neuro: Level of Consciousness is awake, confused, Oriented to person, Commuter Pilot are equal bilaterally Speech is normal, pt is resting eyes closed resps even and unlabored, no s/s of distress. pt is very restless, will wake up, open eyes, speak something unsensible, move around in bed, then go back to resting with eyes closed resps even and unlabored. 10:26 Reassessment: Patient appears in no apparent distress at this time. No changes from previously documented assessment. Patient and/or family updated on plan of care and expected duration. Pain level reassessed. awiating room assignment. daughter in room states someone will be with the patient 24 hours a day from the [facility]. house painter helper notified, awaiting room assignment. 10:37 Reassessment: Patient appears in no apparent distress at this time. No changes from previously documented assessment. Patient and/or family updated on plan of care and expected duration. Pain level reassessed. sumit lugo notified of pt bp still elevated. 10:58 Reassessment: Patient appears in no apparent distress at this time. Patient and/or ch family updated on plan of care and expected duration. Pain level reassessed. pt brief changed again for stool. pt has had 3 bm while she was here. pt temperature checked rectally, 101.7. pt medicated per orders. 11:27 Reassessment: Patient appears in no apparent distress at this time. No changes from previously documented assessment. report called, pt in hallway when Sumit Page states to stop, and keep pt down here in ER for longer. pt returned to room. no s/s of distress. 13:39 Reassessment: Patient appears in no apparent distress at this time. Patient and/or ch family updated on plan of care and expected duration. Pain level reassessed. awaiting LP results prior to sending pt upstairs. Vital Signs: 06:41 BP 140 / 122; Pulse 94; Resp 20; Pulse Ox 96% on R/A; Weight 86.18 kg (R); Height 5 ft. fc 7 in. (170.18 cm) (R); Pain 0/10; 08:18 BP 149 / 116; Pulse 86; Resp 26; Temp 98.2; Pulse Ox 99% on R/A; Pain 0/10; ch 09:00 BP 204 / 102; Pulse 94; Resp 22; Pulse Ox 98% ; ch 09:15 BP 212 / 98 LA Supine (man/lg); Pulse 88; ch 09:24 BP 211 / 86; Pulse 92; Resp 23; Temp 98.4(TE); Pulse Ox 99% on R/A; Pain 0/10; ch 10:02 BP 192 / 73; Pulse 80; Resp 22; Pulse Ox 100% on R/A; ch 10:26 BP 188 / 78; Pulse 75; Resp 24; Temp 98.5(TE); Pulse Ox 100% on R/A; Pain 0/10; ch 10:58 BP 174 / 62; Pulse 78; Resp 22; Temp 101.7(R); Pulse Ox 99% on R/A; Pain 0/10; ch 11:59 BP 164 / 78; Pulse 92; Resp 24; Pulse Ox 100% on R/A; ch 12:38 BP 159 / 69; Pulse 85; Resp 24; Temp 100.9(R); Pulse Ox 100% on R/A; ch 13:39 BP 167 / 58; Pulse 81; Resp 16; Temp 101.3(R); Pulse Ox 99% on R/A; Pain 0/10; ch 06:41 Body Mass Index 29.76 (86.18 kg, 170.18 cm) ED Course: 06:40 Patient arrived in ED. es 06:41 Arm band placed on Patient placed in an exam room, on a stretcher. fc 06:42 Chapin Arias MD is Private Physician. es 06:44 Missed attempt(s): 20 gauge in left antecubital area. 22 gauge in left in right hand. ch Bleeding controlled, band aid applied, catheter tip intact. 06:45 Sumit Lugo PA is PHCP. cp 06:45 Hector Acuna MD is Attending Physician. cp 06:50 Triage completed. fc 06:51 Patient has correct armband on for positive identification. Bed in low position. Call fc light in reach. Side rails up X2. quality assurance monitor final on. Pulse ox on. NIBP on. 07:10 No apparent distress. Resting quietly. ch 07:10 Inserted saline lock: 22 gauge in right hand, using aseptic technique. ch 07:12 CT Stroke Brain w/o Contrast In Process Unspecified. EDMS 07:12 CT C Spine In Process Unspecified. EDMS 07:35 Stroke CXR 1 View In Process Unspecified. EDMS 07:46 Jaimee Moreno, RN is Primary Nurse. ch 08:10 Lab(s) recollected, by me, sent to lab. ch 09:19 UDS Sent. ag 09:19 Urine Microscopic Only Sent. ag 09:20 Urine collected: Byrd catheter specimen, clear. ag 09:47 Chapin Arias MD is Hospitalizing Provider. cp 11:45 CT completed. Patient tolerated procedure well. Patient moved to CT via stretcher. [email or web address] Patient moved back from CT. 12:35 Pillow given. Consent for a lumbar puncture explained by staff, signed by guardian, pre ch procedural time out performed. 12:35 Assist provider with lumbar puncture: Set up LP tray. Performed by Hector Acuna MD CSF ch is clear. Puncture site dressed with band aid, Procedure was successful. Patient tolerated well. pre procedural time out performed and consent obtained for LP from daughter. pt medicated with Diazepam to help her relax so she would not be so restless. 13:36 CT Chest, Abdomen, Pelvis - W/Contrast Sent. ch 19:34 Patient admitted, IV remains in place. ch Administered Medications: 08:43 Not Given (Physician Discretion): NS 0.9% 500 ml IV at bolus once cp 09:00 Drug: NS 0.9% 1000 ml Route: IV; Rate: 1 bolus; Site: right hand; ch 10:03 Follow up: IV Status: Completed infusion; IV Intake: 1000ml ch 09:01 Drug: NS 0.9% 1000 ml Route: IV; Rate: 100 ml/hr; Site: right hand; ch 09:05 Drug: Insulin Regular Human 10 units {Co-Signature: hb (Kaila Chun RN).} Route: ch IVP; Site: right hand; 10:04 Follow up: Response: No adverse reaction; Blood sugar is lowered ch 09:38 Drug: Trandate 20 mg Route: IVP; Site: right hand; ch 10:03 Follow up: Response: No adverse reaction ch 09:38 Drug: Aspirin Chewable Tablet 324 mg Route: PO; ch 10:03 Follow up: Response: No adverse reaction ch 09:52 Drug: Insulin Regular Human 10 units {Co-Signature: hb (Kaila Chun RN).} Route: ch IVP; Site: right hand; 11:08 Follow up: Response: No adverse reaction; Blood sugar is lowered ch 10:38 Drug: hydrALAZINE 5 mg Route: IV; Rate: calculated rate; Site: right hand; ch 11:07 Follow up: IV Status: Completed infusion ch 11:00 Drug: Tylenol 1000 mg Route: PO; ch 11:07 Follow up: Response: No adverse reaction ch 11:40 Drug: Ativan 0.5 mg Route: IVP; Site: right hand; ch 11:58 Follow up: Response: No adverse reaction ch 11:57 Drug: NS 0.9% (30 ml/kg) 1500 ml {Note: pt given 1500 ml per sumit page because pt was ch given 1L bolus allready. .} Route: IV; Rate: bolus; Site: right hand; 13:35 Follow up: IV Status: Completed infusion; IV Intake: 1500ml ch 12:45 Drug: Diazepam 5 mg Route: IVP; Site: right hand; ch 13:35 Follow up: Response: No adverse reaction; Marked relief of symptoms 13:34 Drug: Rocephin - (cefTRIAXone) 2 grams Route: IVPB; Infused Over: 30 mins; Site: right hand; 14:53 Follow up: IV Status: Completed infusion; IV Intake: 100ml 13:35 Drug: vancoMYCIN 1 grams Route: IVPB; Infused Over: 2 hrs; Site: right hand; 19:34 Follow up: IV Status: Infusion continued upon admission Point of Care Testing: Blood Glucose: 06:45 Blood Glucose: 342 mg/dL; 09:52 Blood Glucose: 374 mg/dL; Ranges: Intake: 10:03 IV: 1000ml; Total: 1000ml. 13:35 IV: 1500ml; Total: 2500ml. 14:53 IV: 100ml; Total: 2600ml. Output: 09:22 Urine: 800ml (Byrd); Total: 800ml. ag Outcome: 09:48 Decision to Hospitalize by Provider. cp 11:09 Admitted to Med/surg accompanied by [facility], via stretcher, [facility] Report called to Juhi Burris RN 12:35 Condition: stable 15:49 Patient left the ED. Signatures: Dispatcher [employer] Jaimee Benites RN RN Preeti Perkins Jessica [email or web address] Chretien, Felicia, RN RN Kathy Simpson RN RN Fatmata Mckenzie Corey, PA PA cp Kaila Chun RN hb Corrections: (The following items were deleted from the chart) 10:59 09:24 BP 211 / 86; Pulse 92bpm; Resp 23bpm; Pulse Ox 99% RA; Temp 98.4F; Pain 0/10; [facility] 10:59 10:26 BP 188 / 78; Pulse 75bpm; Resp 24bpm; Pulse Ox 100% RA; Temp 98.5F; Pain 0/10; [facility] 13:45 06:51 No provider procedures requiring assistance completed. [facility]
--- NOTE | 2017-08-01 09:49 | EDPHYS ---
Physician Documentation [facility] Name: Apoorva Christie Age: 67 yrs Sex: Female : 1950 Arrival Date: 08/01/2017 Time: 06:40 Bed 3 Private MD: Chapin Arias R ED Physician Hector Acuna HPI: 08/01 06:46 This 67 yrs old Female presents to ER via Unassigned with complaints of S/S of cp Possible Stroke. 06:46 The patient's problem is reported as altered mental status, confused. Onset: The cp symptoms/episode began/occurred at an unknown time. Son reports he found patient on the ground this morning approximately at 0630 confused. Last normal was last night at 2030 prior to going to bed. 06:46 Unable to obtain HPI due to altered mental status. cp Historical: - Allergies: 06:57 codeine sulfate; fc - PMHx: 06:57 Cirrhosis; Diabetes - IDDM; Hypertension; meningitis; progressive tremors; CVA; brain fc blockage; - PSHx: 06:57 Cholecystectomy; Knee surgery; ; Hysterectomy; fc - Immunization history:: Last tetanus immunization: unknown. - Social history:: Smoking status: Patient/guardian denies using tobacco. ROS: 06:48 Constitutional: Negative for fever. cp 06:48 Cardiovascular: Negative for chest pain. 06:48 Abdomen/GI: Negative for abdominal pain. 06:48 Unable to obtain ROS due to altered mental status, patient being uncooperative. Exam: 06:49 Head/Face: Normocephalic, atraumatic. cp 06:49 Constitutional: The patient appears alert, non-diaphoretic, non-toxic, well developed, well nourished, unkempt. 06:49 Eyes: Periorbital structures: appear normal, Pupils: equal, round, and reactive to light and accomodation, Conjunctiva: normal, no exudate, no injection, Sclera: no appreciated abnormality, Lids and lashes: appear normal, bilaterally. 06:49 ENT: External ear(s): are unremarkable, Ear canal(s): are normal, clear, TM's: bulging, is not appreciated, bilaterally, dullness, bilaterally, erythema, is not appreciated, bilaterally, Nose: is normal, Mouth: Lips: moist, Oral mucosa: moist, Posterior pharynx: is normal, airway is patent, no erythema, no exudate. 06:49 Neck: C-spine: vertebral tenderness, is not appreciated, crepitus, is not appreciated, ROM/movement: is normal, is supple, no range of motions limitations, no meningismus, no nuchal rigidity. 06:49 Chest/axilla: Inspection: normal, Palpation: is normal, no crepitus, no tenderness. 06:49 Cardiovascular: Rate: normal, Rhythm: regular, Pulses: Pulses are 2+ in right radial cp artery and left radial artery. Edema: is not appreciated, JVD: is not appreciated. 06:49 Respiratory: the patient does not display signs of respiratory distress, Respirations: cp normal, no use of accessory muscles, no retractions, no splinting, no tachypnea, labored breathing, is not present, Breath sounds: are clear throughout, no decreased breath sounds, no stridor, no wheezing. 06:49 Abdomen/GI: Inspection: obese Bowel sounds: active, all quadrants, Palpation: abdomen is soft and non-tender, in all quadrants, rebound tenderness, is not appreciated, voluntary guarding, is not appreciated, involuntary guarding, is not appreciated. 06:49 Back: pain, is absent, ROM is normal, CVA tenderness, is absent. 06:49 Skin: cellulitis, is not appreciated, no rash present. 06:49 Neuro: Orientation: to person, situation, Mentation: confused, unable to follow commands, Memory: unable to test, AMS, Cerebellar function: unable to test, Motor: moves all fours, no focal deficits noted. 07:26 Radiologist reports: negative for acute findings cp Vital Signs: 06:41 BP 140 / 122; Pulse 94; Resp 20; Pulse Ox 96% on R/A; Weight 86.18 kg (R); Height 5 ft. fc 7 in. (170.18 cm) (R); Pain 0/10; 08:18 BP 149 / 116; Pulse 86; Resp 26; Temp 98.2; Pulse Ox 99% on R/A; Pain 0/10; ch 09:00 BP 204 / 102; Pulse 94; Resp 22; Pulse Ox 98% ; ch 09:15 BP 212 / 98 LA Supine (man/lg); Pulse 88; ch 09:24 BP 211 / 86; Pulse 92; Resp 23; Temp 98.4(TE); Pulse Ox 99% on R/A; Pain 0/10; ch 10:02 BP 192 / 73; Pulse 80; Resp 22; Pulse Ox 100% on R/A; ch 10:26 BP 188 / 78; Pulse 75; Resp 24; Temp 98.5(TE); Pulse Ox 100% on R/A; Pain 0/10; ch 10:58 BP 174 / 62; Pulse 78; Resp 22; Temp 101.7(R); Pulse Ox 99% on R/A; Pain 0/10; ch 11:59 BP 164 / 78; Pulse 92; Resp 24; Pulse Ox 100% on R/A; ch 12:38 BP 159 / 69; Pulse 85; Resp 24; Temp 100.9(R); Pulse Ox 100% on R/A; ch 13:39 BP 167 / 58; Pulse 81; Resp 16; Temp 101.3(R); Pulse Ox 99% on R/A; Pain 0/10; ch 06:41 Body Mass Index 29.76 (86.18 kg, 170.18 cm) fc Procedures: 12:45 Lumbar Puncture: Patient placed in left lateral decubitus position. Prepped with Betadine. Draped using sterile technique. Collected 4 ml's of clear fluid. Puncture site dressed with band aid, Patient tolerated well. MDM: 06:57 Patient medically screened. cp 07:00 ED course: VSS. tpa not given due to unknown onset of symptoms. Patient seen last cp normal 2030 last night and found by son this morning \T\0630 to seem weak on left and altered. 07:00 Differential diagnosis: CVA, TIA, drug effects, seizure, meningitis. cp 09:44 Physician consultation: Chapin Arias MD was called at 09:45, was contacted at 09:45, regarding admission, to the medical/surgical unit. patient's condition, would like consultation with Dr. Conti. 09:45 Data reviewed: vital signs, nurses notes, lab test result(s), EKG, radiologic studies, cp CT scan, plain films. 08/01 06:46 Order name: Hepatic Function; Complete Time: 08:52 cp 08/01 09:36 Interpretation: Normal except: GLOB 4.4; A/G 0.8. cp 04/03 06:46 Order name: CPK; Complete Time: 08:52 cp / 06:46 Order name: Ckmb; Complete Time: 08:52 cp 04/ 06:46 Order name: Troponin (emerg Dept Use Only); Complete Time: 08:52 cp / 06:46 Order name: UDS; Complete Time: 09:35 cp 04/ 09:35 Interpretation: Reviewed. cp 04 06:46 Order name: Basic Metabolic Panel; Complete Time: 08:52 cp 04/03 08:52 Interpretation: Normal except: NA 132; CL 95; GLUC 459; BUN 25; GFR 72. cp 04/ 06:46 Order name: CBC with Diff; Complete Time: 09:35 cp 04 08:40 Interpretation: Normal except: WBC 16.7; MPV 11.8; MILTON% 88.8; LYM% 7.2; NEUT A 14.8. cp / 06:46 Order name: Protime (+inr); Complete Time: 09:35 cp 08/01 06:46 Order name: Ptt, Activated; Complete Time: 09:35 cp 08/01 09:35 Interpretation: PTT 24.0; Reviewed. cp 08/01 06:46 Order name: Urine Microscopic Only; Complete Time: 11:18 cp 08/01 12:06 Interpretation: Normal except: URBC 5-10. cp 04/03 08:06 Order name: AMMONIA; Complete Time: 08:40 cp 04 08:06 Order name: Blood Culture Adult (2) cp 08/01 08:06 Order name: Lactate; Complete Time: 08:40 cp 08/01 08:06 Order name: Procalcitonin; Complete Time: 09:35 cp 08/01 08:31 Order name: CBC Smear Scan; Complete Time: 09:35 EDMS 08/01 09:18 Order name: Urine Dipstick--Ancillary (enter results); Complete Time: 09:41 bd 08/01 12:05 Interpretation: Normal except: UGLUC 2+; UKET 1+; UBLD 2+; UPROT 3+. cp 04/03 10:05 Order name: CKMB Creatine Kinase MB EDMS 08/01 10:05 Order name: CKMB Creatine Kinase MB EDMS 08/01 10:05 Order name: Creatine Phosphokinase EDMS 08/01 10:05 Order name: Creatine Phosphokinase EDCA 08/01 10:05 Order name: Lipid Profile EDCA 08/01 10:05 Order name: Lipid Profile EDCA 08/01 10:05 Order name: Troponin I EDCA 08/01 10:05 Order name: Troponin I; Complete Time: 14:00 EDMS 08/01 10:05 Order name: Troponin I; Complete Time: 00:13 EDCA 08/01 10:05 Order name: Troponin I; Complete Time: 00:13 EDMS 08/01 11:18 Order name: Lactate Sepsis 2 HR Follow-up; Complete Time: 11:19 EDMS 08/01 11:19 Interpretation: LACTATE SEPSIS 54.6; Reviewed. cp 08/01 12:21 Order name: Spinal Fluid Profile 08/01 13:45 Order name: CSF Glucose; Complete Time: 14:56 EDMS 08/01 13:58 Order name: Body Fluid Cell Count; Complete Time: 14:56 EDCA 08/01 06:46 Order name: CT Stroke Brain w/o Contrast; Complete Time: 07:39 cp 08/01 07:40 Interpretation: Report reviewed. cp 08/01 06:46 Order name: Stroke CXR 1 View; Complete Time: 09:35 cp 08/01 06:46 Order name: EKG; Complete Time: 06:47 cp 08/01 06:46 Order name: Accucheck; Complete Time: 08:24 cp 08/01 06:46 Order name: Cardiac monitoring; Complete Time: 08:24 cp 08/01 06:46 Order name: EKG - Nurse/Tech; Complete Time: 08:24 cp 08/01 06:46 Order name: IV Saline Lock; Complete Time: 08:24 cp 08/01 06:46 Order name: Labs collected and sent; Complete Time: 08:24 cp 08/01 06:46 Order name: NPO; Complete Time: 08:25 cp 08/01 06:46 Order name: O2 Per Protocol; Complete Time: 09:19 cp 08/01 06:52 Order name: CT C Spine; Complete Time: 07:39 cp 08/01 09:59 Order name: CONS Physician Consult EDCA 08/01 10:05 Order name: Stroke Protocol EDCA 08/01 11:21 Order name: CT Chest, Abdomen, Pelvis - W/Contrast cp 08/01 12:04 Order name: CT; Complete Time: 12:57 EDMS 08/01 14:28 Order name: CSF Culture EDMS 08/01 14:28 Order name: CSF Bacterial Antigens (Tube 1 EDCA 08/01 14:55 Order name: Stool Culture 08/01 06:46 Order name: O2 Sat Monitoring; Complete Time: 09:19 cp 08/01 06:46 Order name: Stroke Swallow Screen; Complete Time: 10:29 cp 08/01 06:46 Order name: Urine Dipstick-Ancillary (obtain specimen); Complete Time: 09:19 cp 08/01 07:20 Order name: Cath; Complete Time: 09:01 cp 08/01 07:33 Order name: Labs - recollect needed; Complete Time: 08:24 bd 08/01 12:21 Order name: Lumbar Puncture Setup; Complete Time: 13:36 cp Administered Medications: 08:43 Not Given (Physician Discretion): NS 0.9% 500 ml IV at bolus once cp 09:00 Drug: NS 0.9% 1000 ml Route: IV; Rate: 1 bolus; Site: right hand; ch 10:03 Follow up: IV Status: Completed infusion; IV Intake: 1000ml ch 09:01 Drug: NS 0.9% 1000 ml Route: IV; Rate: 100 ml/hr; Site: right hand; ch 09:05 Drug: Insulin Regular Human 10 units {Co-Signature: hb (Kaila Chun RN).} Route: ch IVP; Site: right hand; 10:04 Follow up: Response: No adverse reaction; Blood sugar is lowered ch 09:38 Drug: Trandate 20 mg Route: IVP; Site: right hand; ch 10:03 Follow up: Response: No adverse reaction ch 09:38 Drug: Aspirin Chewable Tablet 324 mg Route: PO; ch 10:03 Follow up: Response: No adverse reaction ch 09:52 Drug: Insulin Regular Human 10 units {Co-Signature: hb (Kaila Chun RN).} Route: ch IVP; Site: right hand; 11:08 Follow up: Response: No adverse reaction; Blood sugar is lowered ch 10:38 Drug: hydrALAZINE 5 mg Route: IV; Rate: calculated rate; Site: right hand; ch 11:07 Follow up: IV Status: Completed infusion ch 11:00 Drug: Tylenol 1000 mg Route: PO; ch 11:07 Follow up: Response: No adverse reaction ch 11:40 Drug: Ativan 0.5 mg Route: IVP; Site: right hand; 11:58 Follow up: Response: No adverse reaction ch 11:57 Drug: NS 0.9% (30 ml/kg) 1500 ml {Note: pt given 1500 ml per sumit page because pt was ch given 1L bolus allready. .} Route: IV; Rate: bolus; Site: right hand; 13:35 Follow up: IV Status: Completed infusion; IV Intake: 1500ml 12:45 Drug: Diazepam 5 mg Route: IVP; Site: right hand; 13:35 Follow up: Response: No adverse reaction; Marked relief of symptoms 13:34 Drug: Rocephin - (cefTRIAXone) 2 grams Route: IVPB; Infused Over: 30 mins; Site: right hand; 14:53 Follow up: IV Status: Completed infusion; IV Intake: 100ml ch 13:35 Drug: vancoMYCIN 1 grams Route: IVPB; Infused Over: 2 hrs; Site: right hand; 19:34 Follow up: IV Status: Infusion continued upon admission Point of Care Testing: Blood Glucose: 06:45 Blood Glucose: 342 mg/dL; 09:52 Blood Glucose: 374 mg/dL; Ranges: Critical Glucose Levels:Adult <50 mg/dl or >400 mg/dl <40 mg/dl or >180 mg/dl Disposition: 16:00 Chart complete. cp Disposition: 08/01/17 09:48 Hospitalization ordered by Chapin Arias for Inpatient Admission. Preliminary diagnosis are Altered mental status, unspecified, Diabetes mellitus due to underlying condition with hyperglycemia. - Bed requested for Telemetry/MedSurg (Inpatient). - Status is Inpatient Admission. ch - Condition is Stable. - Problem is new. - Symptoms are unchanged. UTI on Admission? No Signatures: Dispatcher [employer] Etta Norton Christina, RN RN ch Woody, Diana, RN RN dw Chretien, Felicia, RN RN Sumit Lugo PA PA cp Starr, Gregory, MD MD gs Heather Baxter RN Corrections: (The following items were deleted from the chart) 08:52 08:40 Normal except: NA 132; CL 95; GLUC 459. cp cp
[2017-08-01 09:59] LABS: Urine Amorphous Sediment 1+ /HPF (NONE SEEN); Urine Bacteria <20 /HPF (<20); Urine Culture Reflex Order NOT NEEDED
[2017-08-01] MEDS ORDERED: ASPIRIN 81 MG CHEWABLE TABLET ONE (10:00)
[2017-08-01] MEDS ORDERED: HYDRALAZINE HCL 20 MG/ML VIAL ONE (10:59)
[2017-08-01] MEDS ORDERED: ACETAMINOPHEN 500 MG TAB ONE (11:10)
[2017-08-01] MEDS: INSULIN -REGULAR HUMAN 50 UNIT/0.5 ML ML SQ SCH ×3 (11:30→22:07)
[2017-08-01] MEDS ORDERED: NA CHLORIDE 0.9% 1,000 ML ONE (11:50)
[2017-08-01] MEDS ORDERED: LORazepam 2 MG/ML VIAL ONE (11:51)
--- NOTE | 2017-08-01 12:04 | RAD REPORT ---
EXAM DESCRIPTION: CT - Chest Abdomen Pelvis W Cont - 08/01/2017 11:46 am CLINICAL HISTORY: Chest and abdominal pain. COMPARISON: None. TECHNIQUE: Computed axial tomography of the chest, abdomen and pelvis was obtained. 100 mL of Isovue -300 was administered intravenously. Oral contrast was not requested. This limits evaluation of bowel . FINDINGS: Small bilateral thyroid nodules are present. No mediastinal or hilar lymphadenopathy is seen. Coronary arterial calcifications are present. A pleu ral effusion is not seen. A pericardial effusion is not noted. The heart is enlarged. On the arterial phase there is a vague low-density area within the superior aspect of the spleen rosa uring a couple centimeters. This is not clearly seen on the venous phase. The liver, adrenals and kidneys are unremarkable. The pancreas is atrophic. The gallbladder has been removed. A Byrd catheter is present within the bladder. There is no evidence of diverticulitis. The appendix is normal. IMPRESSION: 1. No acute abnormality involving the chest. 2. Equivocal low-density area within the spleen. It is uncertain if this is a true abnormality or art ifact. If it is real then that this likely represents a splenic infarct. [facility] for further evaluation.
[2017-08-01] MEDS ORDERED: MIDAZOLAM HCL 2 MG/2 ML INJ ONE (12:44)
[2017-08-01] MEDS ORDERED: DIAZEPAM 10 MG/2 ML INJ SYRINGE ONE (12:57)
[2017-08-01] MEDS ORDERED: VANCOMYCIN/NS 1 gm 1 GM/250 ML BAG ONE (13:39)
[2017-08-01] MEDS ORDERED: NA CHLORIDE 0.9% 250 ML ONE (13:40)
[2017-08-01] MEDS ORDERED: CEFTRIAXONE/SWI 1gm 2 GM/20 ML SYR ONE (13:40)
[2017-08-01 13:45] LABS: CSF Glucose 161 mg/dl (40-70)
[2017-08-01 13:55] LABS: Fluid Total Volume 4 ml
[2017-08-01 13:56] LABS: Appearance CLEAR (CLEAR); Body Fluid Source CSF; Color of fluid Colorless (COLORLESS)
[2017-08-01 13:57] LABS: Body Fluid Source CSF; Body Fluid WBC 20 /mm^3
[2017-08-01 13:58] LABS: Appearance CLEAR (CLEAR); Body Fluid WBC 10 /mm^3; Color of fluid Colorless (COLORLESS)
[2017-08-01] MEDS: NA CHLORIDE 0.9% 1,000 ML IV SCH ×2 (16:10→20:00)
[2017-08-01] MEDS ORDERED: GLUCAGON 1 MG/VIAL IM PRN (17:01)
[2017-08-01] MEDS ORDERED: D50W 25 GM/50 ML SYRINGE IV PRN (17:01)
[2017-08-01] MEDS: METRONIDAZOLE 500mg IVPB 500 MG/100 ML BAG IV SCH (17:04)
[2017-08-01] MEDS: ENOXAPARIN 40 MG/0.4 ML SQ SCH (17:05)
[2017-08-01] MEDS ORDERED: HALOPERIDOL LACT 5 MG/ML INJ IM PRN (19:43)
[2017-08-01] MEDS ORDERED: LORazepam 2 MG/ML VIAL IV ONE (20:06)
[2017-08-01] MEDS ORDERED: ZIPRASIDONE MESYLA 20 MG/VIAL IM PRN (20:47)
[2017-08-01] MEDS ORDERED: WATER FOR INJ,STERILE 10 ML IM PRN (20:47)
[2017-08-01] MEDS: CARVEDILOL 6.25 MG TAB PO SCH (21:00)
--- NOTE | 2017-08-01 22:01 | CON ---
Reason For Consultation: Consultation called because of confusion. History Of Present Illness: Ms. Carpenter is a 67-year-old patient with multiple medical problems inclu ding multiple reasons for confusion. She has insulin-dependent diabetes mellitus and had prior hospi talization with diabetic ketoacidosis, history of meningitis, tremors, and prior stroke. The patient was admitted to [facility] on the third, which is earlier today, with confusion and symptom s as described. Apparently, the patient was found on the floor by her son, confused and some left-si ded weakness was noted. The patient was last known well around 8:30 last night when she went to bed and woke up in the morning with symptoms as indicated. The patient had a head CT scan on arrival to hospital in the morning around 6:46. CT scan showed no acute ischemic or hemorrhagic change. It is however noted that she had moderate severity chronic small-vessel ischemic disease. The review of e emergency room notes did not indicate the patient had any focal findings on her arrival indicating potential for a local stroke. Her blood work did reveal an elevated white count of 16.7 with 88.8% n eutrophils but lactic acid level was elevated to 54.6, and glucose was elevated to 459. She was admi tted with diabetic ketoacidosis and possible systemic infection and a lumbar puncture was also done. The study identified 10 white blood cells with 100% lymphocytes and glucose was 161. The CSF protei n was 52 and CSF glucose 161. She did receive vancomycin and Rocephin for presumed urinary tract inf ection and also has been on Flagyl along with ciprofloxacin. Since her admission, the patient's cogn itive functioning seems to have improved towards her baseline. At the time of my evaluation, she was resting in bed, answering all questions appropriately, following all commands appropriately. Moving her extremities equally well. Past Medical History: As indicated above and including cirrhosis. Allergies: CODEINE. Past Surgical History: Cholecystectomy, surgery, , hysterectomy. Social History: No alcohol, tobacco, or IV drug use. Family History: Noncontributory. Physical Examination: Vital Signs: Blood pressure 105 ranging up to 167/55-69, pulse ranged 71-85, respiratory rate 16 up to 24, temperature T-max of a 101.3, weight 189 pounds, height 5 feet 7 inches. General: Ms. Christie is resting in bed. She is in no acute distress. HEENT: She is normocephalic, atraumatic. Sclerae anicteric. Oropharynx is moist. Neck: Supple. Chest: Clear. Heart: Regular. Extremities: Show no edema or cyanosis. Neurologic: She is alert and oriented to person, situation, place. Follows commands appropriately. Cranial nerves show no focal deficits. Motor; she has no focal weakness in the arms and legs proxim ally or distally. On sensory exam, stocking-glove loss to light touch temperature. She has depresse d reflexes in upper and lower extremities. She has intact coordination in upper and lower extremitie s. Laboratory Data: Her procalcitonin level is less than 0.05 indicating no likelihood of sepsis. Her repeat lactic acid level is now 18 and this is after hydration. Assessment: Ms. Christie is a 67-year-old patient with multifactorial reasons for encephalopathy inc luding potential toxic encephalopathy from infection. She does have on brain imaging, moderate advan riki small vessel ischemic disease consistent with a vascular dementia in addition to diabetic ketoaci dosis. Plan: 1.I agree with aggressive treatment of DKA. Also continue antibiotics until cultures have come back negative, which includes cerebrospinal fluid and blood cultures and sensitivities. 2.At this point, no further neurological evaluation is required and once the patient has been discha rged, her followup with Dr. Conti in clinic in 1 month. 3.It should be noted she should continue with Plavix 75 mg daily for stroke risk reduction. Continu e with Prinivil and Coreg along with Lovenox for DVT prophylaxis, and she should be put on high dose of statin for further risk reduction of stroke. BETO/TASHA Voice ID: [id number] Report ID: [id number]
[2017-08-01] MEDS: CIPROFLOXACIN 400mg IV 400 MG/200 ML BAG IV SCH (22:06)
[2017-08-02] MEDS: METRONIDAZOLE 500mg IVPB 500 MG/100 ML BAG IV SCH ×3 (00:52→16:42)
[2017-08-02 05:32] LABS: Absolute Lymphocytes (CBC) 1.8 K/uL (0.7-4.9); Absolute Monocytes 0.7 K/uL (0.1-1.3); Absolute Neutrophil 5.5 K/uL (1.8-8.0); Basophils % 0.9 % (0-1.3); Eosinophils % 2.1 % (0-4.4); Hematocrit 33.3 % (36.0-45.0); Lymphocytes % 22.3 % (15.3-44.8); MCH 32.5 pg (27.0-35.0); MCV 94.2 fL (80-100); MPV 11.8 fL (7.6-11.3); Monocytes % 8.7 % (3.3-12.3); RBC Red Blood Cell Count 3.53 M/uL (3.86-4.86)
[2017-08-02] MEDS: NA CHLORIDE 0.9% 1,000 ML IV SCH ×2 (05:43→16:43)
[2017-08-02 05:55] LABS: Albumin 2.5 g/dL (3.2-5.5); Bilirubin Total 0.8 mg/dL (0.3-1.2); CKMB Creatine Kinase MB 1.8 ng/ml (0.3-4.0); Potassium 3.3 mEq/L (3.6-5.0); Protein, Total 5.6 g/dL (6.0-8.3)
--- NOTE | 2017-08-02 07:39 | EKG ---
Test Date: 2017-08-01 Test Time: 07:34:19 Cylinder Worker: EFREN MEASUREMENT RESULTS: Intervals: Rate: 89 MA: 140 QRSD: 74 QT: 374 QTc: [address] [place]: P: 60 MA: 140 QRS: 25 T: 120 INTERPRETIVE STATEMENTS: Normal sinus rhythm ST & T wave abnormality, consider lateral ischemia Abnormal ECG Compared to ECG 07/08/2017 11:03:45 ST (T wave) deviation now present Possible ischemia now present Myocardial infarct finding no longer present Electronically Signed On 08-02-17 07:35:18 CDT by Andrade Titus
[2017-08-02] MEDS ORDERED: POTASSIUM 25 MEQ EFFERV TAB PO ONE (07:59)
[2017-08-02] MEDS ORDERED: HOME MED 1 EA UNK (Lisinopril [Zestril] 40 MG) PO SCH (09:00)
[2017-08-02] MEDS ORDERED: LISINOPRIL 20 MG TAB PO SCH (09:00)
[2017-08-02 09:21] LABS: Platelet Estimate ADEQ; Urine White Blood Cell Casts OK
[2017-08-02 09:22] LABS: Blood Morphology Comment NOT SEEN (NOT SEEN)
[2017-08-02] MEDS: CIPROFLOXACIN 400mg IV 400 MG/200 ML BAG IV SCH ×2 (09:40→20:25)
[2017-08-02] MEDS: CLOPIDOGREL 75 MG TABLET PO SCH (09:40)
[2017-08-02] MEDS: INSULIN -REGULAR HUMAN 50 UNIT/0.5 ML ML SQ SCH ×4 (09:41→21:35)
[2017-08-02] MEDS: CARVEDILOL 6.25 MG TAB PO SCH ×2 (09:41→20:25)
--- NOTE | 2017-08-02 13:31 | HP ---
Date of Admission: 08/01/2017 Chief Complaint: Altered mentation. History Of Present Illness: A 67-year-old female was found unresponsive at home. She was brought to the emergency room for evaluation. However, according to the family they found evidence of vomiting and diarrhea in the house. The patient in addition also had the same symptoms after she was brought to the emergency room. The patient denies any history of rectal bleeding or vomiting of blood. She is more alert today and is able to give history. She does not give any history of actual seizures. However, she claims that she had seizures in January of 2017 as well as 30 years ago. The patient d enies any history of neck stiffness. Past Medical History: Extensive, includes history of type 2 diabetes, hypertension, hyperlipidemia, stroke, possible meningitis. Family History: Diabetes and hypertension present. Personal History: Allergies to codeine. Home Medicines: Please refer to the chart. Review of Systems: No history of chest pain or shortness of breath. Physical Examination: A 67-year-old female. She was confused at admission yesterday evening when I saw her. However, she is alert today and is able to give history. She is moving all extremities equally well and her speec h is normal. HEENT: Otherwise negative. Neck: Supple. JVD negative. Chest: Clear. Heart: Regular. Abdomen: Mild diffuse tenderness. Bowel sounds present. Extremities: No edema. Laboratory Data: At admission, her white count [place] [id number]. Her white count today is normal. Chem pr ofile potassium 3.3 today, random blood sugar over [address] scan of the abdomen, chest, no acute findings. Assessment: 1.Probable infectious gastroenteritis. 2.Altered meditations. 3.Type 2 diabetes, uncontrolled. 4.Recent stroke. 5.Hyperlipidemia. Plan: The patient is having almost normal mentation. She will be started on a diet, pending MRI rep ort. BENNETT/MODL Voice ID: [id number]
[2017-08-02] MEDS: ENOXAPARIN 40 MG/0.4 ML SQ SCH (16:43)
[2017-08-02] MEDS: ATORVASTATIN 20 MG TAB PO SCH (20:26)
[2017-08-03] MEDS: METRONIDAZOLE 500mg IVPB 500 MG/100 ML BAG IV SCH ×3 (00:50→16:50)
[2017-08-03] MEDS: NA CHLORIDE 0.9% 1,000 ML IV SCH ×3 (02:00→21:57)
[2017-08-03 05:10] LABS: Absolute Lymphocytes (CBC) 1.6 K/uL (0.7-4.9); Absolute Monocytes 0.6 K/uL (0.1-1.3); Absolute Neutrophil 3.7 K/uL (1.8-8.0); Hematocrit 32.9 % (36.0-45.0); Lymphocytes % 25.9 % (15.3-44.8); MCH 31.7 pg (27.0-35.0); MCV 96.3 fL (80-100); MPV 12.1 fL (7.6-11.3); Monocytes % 9.1 % (3.3-12.3); RBC Red Blood Cell Count 3.42 M/uL (3.86-4.86)
[2017-08-03 05:47] LABS: ALT/SGPT 13 IU/L (10-60); AST/SGOT 15 IU/L (10-42); Albumin 2.6 g/dL (3.2-5.5); Alkaline Phosphatase 65 IU/L (42-121); BUN Blood Urea Nitrogen 15 mg/dL (6-20); Bicarbonate 22 mEq/L (21-31); Glomerular Filtration Rate > 90 mL/min (=/>90); Glucose Level 246 mg/dL (65-120); Potassium 3.7 mEq/L (3.6-5.0); Protein, Total 5.5 g/dL (6.0-8.3); Sodium Level 137 mEq/L (135-145)
[2017-08-03] MEDS: CLOPIDOGREL 75 MG TABLET PO SCH (08:54)
[2017-08-03] MEDS: LISINOPRIL 20 MG TAB PO SCH (08:54)
[2017-08-03] MEDS: CARVEDILOL 6.25 MG TAB PO SCH ×2 (08:54→20:32)
[2017-08-03] MEDS: CIPROFLOXACIN 400mg IV 400 MG/200 ML BAG IV SCH ×2 (08:54→20:33)
[2017-08-03] MEDS: INSULIN -REGULAR HUMAN 50 UNIT/0.5 ML ML SQ SCH ×4 (08:54→21:53)
[2017-08-03] MEDS: HYDRALAZINE HCL 20 MG/ML VIAL IV PRN ×2 (10:10→16:55)
[2017-08-03] MEDS: ENOXAPARIN 40 MG/0.4 ML SQ SCH (16:49)
[2017-08-03] MEDS ORDERED: AMLODIPINE 5 MG TAB PO ONE ×2 (17:00→21:14)
[2017-08-03] MEDS ORDERED: ZOLPIDEM TARTRATE 5 MG TABLET PO PRN (20:26)
[2017-08-03] MEDS: ATORVASTATIN 20 MG TAB PO SCH (20:32)
[2017-08-04] MEDS: HYDRALAZINE HCL 20 MG/ML VIAL IV PRN (00:25)
[2017-08-04] MEDS: METRONIDAZOLE 500mg IVPB 500 MG/100 ML BAG IV SCH ×2 (00:26→08:38)
--- NOTE | 2017-08-04 02:19 | PN ---
The patient is fully alert today. She is tolerating diet. She is afebrile, however, her blood press ure is high. She is on IV hydralazine. Meanwhile, the patient also will receive oral and the patient will be re-evaluated. If she is stable, she will be discharged in a.m. BENNETT/TASHA Voice ID: [id number] Report ID: [id number]
[2017-08-04] MEDS: NA CHLORIDE 0.9% 1,000 ML IV SCH (08:00)
[2017-08-04] MEDS: CIPROFLOXACIN 400mg IV 400 MG/200 ML BAG IV SCH (08:38)
[2017-08-04] MEDS: CARVEDILOL 6.25 MG TAB PO SCH (08:41)
[2017-08-04] MEDS: LISINOPRIL 20 MG TAB PO SCH (08:41)
[2017-08-04] MEDS: CLOPIDOGREL 75 MG TABLET PO SCH (08:41)
[2017-08-04] MEDS: INSULIN -REGULAR HUMAN 50 UNIT/0.5 ML ML SQ SCH (08:41)
--- NOTE | 2017-08-21 00:40 | DS ---
Date of Discharge: 08/04/2017 Final Diagnoses: 1.Altered mentation. 2.Gastroenteritis. 3.Type 2 diabetes, uncontrolled. 4.Recent stroke. 5.Hyperlipidemia. Hospital Course: This patient was brought to the emergency room in unresponsive state at home. Init ially, it was thought that the patient may have had stroke. The patient however had a history of vom iting and diarrhea. The patient's blood sugar was elevated. Evaluation did not show any evidence of focal neurological deficit or CT evidence of any stroke. The patient after admission received IV fl uids. She received insulin coverage for her blood sugars. The patient also was seen by Dr. Conti , who did not suggest any diagnosis of stroke. The patient improved with this approach and she was d ischarged home on 08/04/2017 to have follow up in the office. Laboratory: Please refer to the chart. BENNETT/TASHA Voice ID: [id number] Report ID: [id number]
== END 2017-08-04 09:20 | disposition home or self-care (01) | DRG 391 ==
LOC: ER 06:37 → ERHOLD 09:56 → 2ND 11:13
PROVIDERS: ADMIT Internal Medicine; ATTEND Internal Medicine
DX: A09 Infectious gastroenteritis and colitis, unspecified (principal); G93.40 Encephalopathy, unspecified; E11.65 Type 2 diabetes mellitus with hyperglycemia; I10 Essential (primary) hypertension; E78.5 Hyperlipidemia, unspecified; Z86.73 Personal history of transient ischemic attack (TIA), and cerebral infarction without residual deficits
CPT/HCPCS: 36415; 62270; 70450; 71045; 71260; 72125; 74177; 80048; 80053; 80076; 80307; 81003; 81015; 82140; 82550; 82553; 82945; 82962; 83605; 84145; 84157; 84484; 85025; 85610; 85730; 86403; 87040; 87045; 87046; 87070; 87493; 89050; 93005; 94760; 96361; 96365; 96366; 96367; 96368; 96375; 99285; J0360; J0696; J0744; J1630; J1650; J2250; J3360; J3370; J7030; Q9967

== ENCOUNTER 2017-08-31 16:52 | Observation (INO) | payer OTHER ==
--- OUTSIDE RECORDS SUMMARY | 2017-08-31 16:54 | XMS REPORT | Clinical Summary ---
:1950 Author Organization [facility] Address [address] [place] [address] Phone Care Team Providers Name Role Phone [...] overload 07/12/2017 Acute respiratory failure with hypoxia ([facility]) 07/12/2017 Acute ischemic left MCA stroke ([facility]) 07/08/2017 Encounters Date Type Specialty Care Team Description 07/08/2017 - Hospital Encounter Intensive Care Moe Vo Acute ischemic left 07/13/2017 MD Naomy MCA stroke Gennaro Orellana ([facility]);Received MD Fransisco tissue plasminogen activator (t-PA) less than 24 hours prior to arrival;Acute respiratory failure with hypoxia ([facility]) 07/08/2017 Anesthesia Event Shilo Valiente MD 07/08/2017 Procedure Pass 07/08/2017 Surgery Virtual, Surgeon PROCEDURE DONE OUTSIDE OR after 08/30/2016 Social History Tobacco Use Types Packs/Day Years [...] (190 lb 4.1 oz) 07/08/2017 6:27 PM [employer] Height 165.1 cm (5' 5") 07/08/2017 6:27 PM [employer] Body Mass Index 31.66 07/08/2017 6:27 PM [employer]EL[employer] Plan of Treatment Not on file Procedures Procedure Name Priority Date/Time Associated Diagnosis Comments PROCEDURE DONE OUTSIDE 07/08/2017 2:02 PM TANK PUMPER PANELBOARD OR after 08/30/2016 Results RHYTHM STRIP - SCAN (07/17/2017 11:00 AM)POC-Glucose meter (07/13/2017 12:19 PM) Only the most recent of21 resultswithin the time period is included. Component Value Ref Range POC-Glucose Meter 302 (H)Comment: Notified SAMAN HERNANDEZ/TESTED AT [facility] 6720 70 - 110 mg/dL [facility] [address] Specimen Performing Laboratory Blood [address] [address] Calcium, Ionized (07/13/2017 3:34 AM) Component Value Ref Range Calcium, Ion 1.11 (L) 1.12 - 1.27 mmol/L pH, Blood 7.47 Specimen Performing Laboratory Blood - Line, Venous [address] [address] CBC with platelet count + automated diff [...] Specimen Performing Laboratory Blood - Line, Venous [address] [address] CBC with platelet count + automated diff (07/13/2017 3:34 AM)Only the most recent of6 resultswithin the time period is included. Specimen Performing Laboratory Blood Narrative The following orders were created for panel order CBC with platelet count + automated diff. Procedure Abnormality Status --------- ------ CBC with platelet count ...[[id number]]AbnormalFinal result Please view results for these tests on the individual orders. Phosphorus (07/13/2017 3:34 AM) Component Value Ref Range Phosphorus 3.2 2.3 - 4.7 mg/dL Specimen Performing Laboratory Blood - Line, Venous [address] [address] Magnesium (07/13/2017 3:34 AM) Component Value Ref Range Magnesium 1.3 (L) 1.6 - 2.6 mg/dL Specimen Performing Laboratory Blood - Line, Venous [address] [address] Basic Metabolic Panel (07/13/2017 3:34 AM)Only the [...] Specimen Performing Laboratory Blood - Line, Venous [address] [address] XR chest 1 view portable / bedside [...] MD Report Verified Date/Time:07/12/2017 09:30:37 Reading Location: [facility] Radiology Reading Room Procedure Note Interface, [...] Report Verified Date/Time: 07/12/2017 09:30:37 Reading Location: [facility] Radiology Reading Room Vitamin B12 (07/12/2017 4:50 AM) Component Value Ref Range Vitamin B12 318 213 - 816 pg/mL Specimen Performing Laboratory Blood [address] [address] Blood gas, arterial (07/11/2017 5:01 AM)Only the [...] Performing Laboratory Blood, Arterial - Line, Arterial [address] [address] Troponin I (07/10/2017 11:56 PM)Only the most recent of2 resultswithin the time period is included. Component Value Ref Range Troponin I 0.17 (H) 0.00 - 0.03 ng/mL Specimen Performing Laboratory Blood - Line, Arterial [address] [address] Narrative Troponin I (TnI) levels must be [...] Specimen Performing Laboratory Blood - Line, Arterial [address] [address] Narrative CK-MB Reference Range: <6.7Normal 6.7-10.0Borderline >10.0 Abnormal ECG 12 lead (07/10/2017 2:10 PM)Only the most recent of2 resultswithin the time period is included. Specimen Performing Laboratory GE MUSE Narrative Ventricular Rate 75 BPM Atrial Rate 75 BPM P-R Interval 150 ms QRS Duration 74 ms Q-T Interval 382 ms QTC Calculation(Bazett) 426 ms P [place] 48 degrees R [place] -3 degrees T [place] 168 degrees Normal sinus rhythm ST & [...] 382 ms QTC Calculation(Bazett) 426 ms P [place] 48 degrees R [place] -3 degrees T [place] 168 degrees Normal sinus rhythm ST & T wave abnormality, consider lateral ischemia Abnormal ECG When compared with ECG of 10-JUL-2017 07:11, QT has shortened Confirmed by MD MAYUR, MICHAEL Escalera ([id number]) on 07/11/2017 7:04:48 AM Sputum Culture + Gram Stain (07/10/2017 12:56 PM) Component Value Ref Range Result Result 4+ Haemophilus influenzae (A)Comment: Beta-lactamase negative Gram Stain Result 4+ WBCs Gram Stain Result 0-5 epithelial cells Gram Stain Result <1+ gram positive rods Gram Stain Result 2+ gram positive cocci in pairs Specimen Performing Laboratory Sputum - Expectorated [address] [address] Narrative 4+ Normal respiratory lor present ECHOCARDIOGRAM REPORT - SCAN (07/10/2017 11:50 AM)B-type Natriuretic Factor (BNP ) (07/10/2017 11:29 AM) Component Value Ref Range BNP 524 (H) 0 - 100 pg/mL Specimen Performing Laboratory Blood - Line, Arterial [address] [address] Lactic acid, arterial, whole blood (07/10/2017 4:40 AM) Component Value Ref Range Lactate, Art 0.8 0.5 - 2.2 mmol/L Specimen Performing Laboratory Blood, Arterial [address] [address] Narrative Effective 09/02/2015: Units/Reference Range Change New: [...] DIALYSIS PATIENTS. Specimen Performing Laboratory Blood [facility] [address] [address] [address] brain without IV contrast (07/10/2017 2:55 [...] MD Report Verified Date/Time:07/10/2017 03:09:32 Reading Location: [address] Ortho Consult Reading Room Procedure Note Interface, [...] Report Verified Date/Time: 07/10/2017 03:09:32 Reading Location: [facility] B1 C013X Ortho Consult Reading Room Urinalysis w/Microscopic (07/09/2017 7:59 PM) Component Value Ref Range Color, UA Light Yellow Clarity, UA Clear Specific Roberts, UA 1.009 1.001 - 1.035 pH, UA [...] /HPF Specimen Source Specimen Performing [place] [address] 2D Echo W/Doppler(CW/PW/Color) (07/09/2017 12:30 PM) Component Value Ref Range Ejection Fraction Specimen Performing Laboratory [facility] ECHO HEARTLAB MKCKESSON CPACS Narrative Transthoracic Echocardiography Report (TTE) Demographics Patient NameKYLEE BEAVERS Date of Study07/09/2017 BILLY Gender Female Visit [id number] Race Unknown [id number] Number Date of 1950 ReferringRahul Tavo Physician Tavo Rosa Age 67 year(s) SonographerCharis Cordova Research Associate Molecular Biology Devon Agudelo Interpreting Anatoly Melendez Physician Procedure Type of Study TTE procedure:2DECHO W [...] Left AtriumLA size is severely enlarged (>48 ml/m2) . Right VentricleThe right ventricular chamber size [...] Study 07/09/2017 BILLY Gender Female Visit Number [id number] Race Unknown Room Number 7519 Number Date of 1950 Referring Moe Vo Physician Tavo Rosa Age 67 year(s) Cake Stripper Charis Cordova Research Associate Molecular Biology Devon Agudelo Interpreting Physician DAVID Perez Procedure [...] MD Report Verified Date/Time:07/09/2017 07:37:39 Reading Location: [address] Neuro Reading Room Procedure Note Interface, [...] Report Verified Date/Time: 07/09/2017 07:37:39 Reading Location: [facility] C013V Neuro Reading Room /Free T4 If Indicated (07/09/2017 3:49 AM) Component Value Ref Range TSH 0.60 0.35 - 4.94 uIU/mL Specimen Performing Laboratory Blood [address] [address] Hemoglobin A1c (07/09/2017 3:49 AM) Component Value Ref Range Hemoglobin A1C 12.4 (H) 4.3 - 6.1 % Specimen Performing Laboratory Blood [facility] [address] [place] [address] Lipid panel (07/09/2017 3:49 AM) Component Value Ref Range Triglycerides 300 mg/dL Cholesterol 204 mg/dL HDL 33 mg/dL LDL Calculated 111 mg/dL Specimen Performing Laboratory Blood [address] [address] Narrative Triglyceride Reference Range: Low Risk <150 [id number] High Risk 200-499 Very High Risk>=500 Cholesterol Reference Range: Low Risk <200 [id number] High Risk>240 HDL Cholesterol Reference Range: Low Risk >=60 High Risk <40 LDL Cholesterol Reference Range: Optimal<100 Near [id number] [id number] [id number] Very High >=190 Prothrombin time/INR (07/08/2017 10:53 PM) Component Value Ref Range Protime 14.2 11.7 - 14.7 seconds INR 1.1 <=5.9 Specimen Performing Laboratory Blood [address] [address] Narrative RECOMMENDED COUMADIN/WARFARIN INR THERAPY RANGES STANDARD [...] 55 U/L Specimen Performing [place] [address] [place] Common Carotid Or Innominate w/Extracranial (07/08/2017 6:09 PM) Specimen Performing Laboratory GE RIS Narrative FINAL REPORT DATE: 07/08/2017 ATTENDING: Tristen Thapa MD ASSISTANTS: Brock Fuller MD, Eleno Solorzano PREOPERATIVE DIAGNOSIS:Acute Left [...] femoral artery x1 MATERIALS EMPLOYED: 1. 8 Bermudian short sheath 2. 5 Bermudian 125cm diagnostic catheter 3. Bentson guidewire 4. Terumo 0.035 LT glidewire 5. Flowgate 8f Balloon Guide Catheter 8. 8 [place]ian Angioseal device INDICATIONS: The patient is a 67-year-old female with history of hypertension, diabetes and prior stroke who presented with acute onset aphasia in her hometown of [place] around 11:00 AM. She was evaluated and transferred to [facility] for further evaluation treatment. On arrival, [...] the puncture site was confirmed, a 8 [place] short sheath was inserted over a [place] wire and was maintained on heparinized saline flush throughout the remainder of the procedure. Using coaxial technique, a preflushed 5 [place] 125cm diagnostic glide catheter on constant heparinized saline flush was placed through a pre-flushed and pre-prepped 8 [place]ian Flowgate balloon Guide catheter. The two catheters [...] removed and hemostasis achieved with an 8 [place] Angioseal and manual compression. The patient tolerated [...] atherosclerotic disease with superimposed layering of thrombus. Qgvh-dxlud-jffdpcms thrombolysis with Aggrastat infusion, there is reduced [...] MD Report Verified Date/Time:07/08/2017 18:24:25 Reading [facility] Procedure Note Interface, [...] femoral artery x1 MATERIALS EMPLOYED: 1. 8 Bermudian short sheath 2. 5 Bermudian 125cm diagnostic catheter 3. Bentson guidewire 4. Terumo 0.035 LT glidewire 5. Flowgate 8f Balloon Guide Catheter 8. 8 [place]ian Angioseal device INDICATIONS: The patient is a 67-year-old female with history of hypertension, diabetes and prior stroke who presented with acute onset aphasia in her hometown of [place] around 11:00 AM. She was evaluated and transferred to [facility] for further evaluation treatment. On arrival, [...] the puncture site was confirmed, a 8 [place]ian short sheath was inserted over a Bentson wire and was maintained on heparinized saline flush throughout the remainder of the procedure. Using coaxial technique, a preflushed 5 [place] 125cm diagnostic glide catheter on constant heparinized saline flush was placed through a pre-flushed and pre-prepped 8 [place]ian Flowgate balloon Guide catheter. The two catheters [...] removed and hemostasis achieved with an 8 [place]ian Angioseal and manual compression. The patient tolerated [...] atherosclerotic disease with superimposed layering of thrombus. Knuz-djmej-vybiaqta thrombolysis with Aggrastat infusion, there is reduced [...] Report Verified Date/Time: 07/08/2017 18:24:25 Reading Location: [facility] Y018 Neuro Angio Reading Room brain/stroke test design (07/08/2017 3:00 PM) Specimen Performing Laboratory Ante Up RIS Narrative FINAL REPORT CT Head without [...] MD Report Verified Date/Time:07/08/2017 14:24:44 Reading Location: [facility] B1 C013V Neuro Reading Room Procedure Note Interface, External Ris In - 07/08/2017 3:02 PM TANK PUMPER PANELBOARD FINAL REPORT CT Head without contrast CLINICAL [...] Report Verified Date/Time: 07/08/2017 14:24:44 Reading Location: [address] Neuro Reading Room carotid (07/08/2017 3:00 [...] FINDINGS: There is no evidence for a [place] first order branch vessel occlusion. [...] MD Report Verified Date/Time:07/08/2017 15:00:43 Reading Location: [address] Neuro Reading Room Procedure Note Interface, [...] FINDINGS: There is no evidence for a [place] first order branch vessel occlusion. [...] Report Verified Date/Time: 07/08/2017 15:00:43 Reading Location: [address] Neuro Reading Room brain cerebral perfusion analysis (07/08/2017 3:00 PM) Specimen Performing Laboratory [employer] Narrative FINAL REPORT CLINICAL HISTORY: Stroke TECHNIQUE: [...] FINDINGS: There is no evidence for a [place] first order branch vessel occlusion. [...] MD Report Verified Date/Time:07/08/2017 15:00:43 Reading Location: [address] Neuro Reading Room Procedure Note Interface, External Ris In - 07/08/2017 3:03 PM TANK PU[employer]ER PANELBOARD FINAL REPORT CLINICAL HISTORY: Stroke TECHNIQUE: Contiguous [...] FINDINGS: There is no evidence for a [place] first order branch vessel occlusion. [...] Report Verified Date/Time: 07/08/2017 15:00:43 Reading Location: [address] Neuro Reading Room brain (07/08/2017 3:00 PM) Specimen Performing Laboratory [employer] Narrative FINAL REPORT CLINICAL HISTORY: Stroke TECHNIQUE: [...] FINDINGS: There is no evidence for a [place] first order branch vessel occlusion. [...] MD Report Verified Date/Time:07/08/2017 15:00:43 Reading Location: [address] Neuro Reading Room Procedure Note Interface, [...] FINDINGS: There is no evidence for a [place] first order branch vessel occlusion. [...] Report Verified Date/Time: 07/08/2017 15:00:43 Reading Location: [address] Neuro Reading Room after 08/30/2016
--- OUTSIDE RECORDS SUMMARY | 2017-08-31 16:55 | XMS REPORT ---
:1950 Author Organization [facility] Address [address] [place] [address] [address] [place] [address] Care Team Providers Name Role Phone VALENTÍN CUMMINGS Unavailable Unavailable Problems This patient has no known problems. Allergies, Adverse Reactions, Alerts This patient has no known allergies or adverse reactions. Medications This patient has no known medications. Results Test Description Test Time Test Comments Text Results Atomic Results Result Comments SPUTUM CULTURE + GRAM STAIN 2017-07-13 15:32:00 Test Item Value Reference Range Comments CULTURE (BEAKER) (test 4+ Haemophilus eeut=3454) influenzaeBeta-lactamase negative GRAM STAIN RESULT 4+ WBCs (BEAKER) (test hqep=6990) GRAM STAIN RESULT 0-5 epithelial cells (BEAKER) (test smly=583030) GRAM STAIN RESULT <1+ gram positive rods (BEAKER) (test uxwb=950469) GRAM STAIN RESULT 2+ gram positive cocci (BEAKER) (test in pairs zivk=858474) 4+ Normal respiratory lor presentPOCT-GLUCOSE [id number] 12:42:00 Test Item Value Reference Range Comments POC-GLUCOSE METER (BEAKER) 302 mg/dL 70-110 Notified SAMAN HERNANDEZ/TESTED AT [facility] (test quri=1528) [address] [place] [address] POCT-GLUCOSE [id number] 07:51:00 Test Item Value Reference Range Comments POC-GLUCOSE METER (BEAKER) 264 mg/dL 70-110 TESTED AT [address] (test xltd=1529) [facility] [address] CALCIUM, [id number] 05:24:00 Test Item Value Reference Range Comments CALCIUM IONIZED (BEAKER) (test fhvt=360) 1.11 mmol/L 1.12-1.27 PH, BLOOD (BEAKER) (test amjp=2084) 7.47 [id number] 04:43:00 Test Item Value Reference Range Comments PHOSPHORUS (BEAKER) (test ecdn=885) 3.2 mg/dL 2.3-4.7 [id number] 04:43:00 Test Item Value Reference Range Comments MAGNESIUM (BEAKER) (test vypn=953) 1.3 mg/dL 1.6-2.6 BASIC METABOLIC [id number] 04:43:00 Test Item Value Reference Range Comments SODIUM (BEAKER) (test 137 meq/L 136-145 ygfs=650) POTASSIUM (BEAKER) (test 3.4 meq/L 3.5-5.1 lwry=096) CHLORIDE (BEAKER) (test 103 meq/L 98-107 cotb=655) CO2 (BEAKER) (test 25 meq/L 22-29 iwes=549) BLOOD UREA NITROGEN 22 mg/dL 7-21 (BEAKER) (test adue=512) CREATININE (BEAKER) (test 0.74 mg/dL 0.57-1.25 sipg=844) GLUCOSE RANDOM (BEAKER) 237 mg/dL 70-105 (test hizv=552) CALCIUM (BEAKER) (test 9.0 mg/dL 8.4-10.2 zofe=579) EGFR (BEAKER) (test 79 mL/min/1.73 sq m ESTIMATED GFR IS NOT ndyc=6834) ACCURATE CREATININE CLEARANCE IN PREDICTING GLOMERULAR FILTRATION RATE. ESTIMATED GFR IS NOT APPLICABLE FOR DIALYSIS PATIENTS. CBC W/PLT COUNT & AUTO [id number] 04:05:00 Test Item Value Reference Range Comments WHITE BLOOD CELL COUNT (BEAKER) (test eglg=592) 8.1 K/ L 3.5-10.5 RED BLOOD CELL COUNT (BEAKER) (test ehdk=737) 3.43 M/ L 3.93-5.22 HEMOGLOBIN (BEAKER) (test cexa=197) 10.9 GM/DL 11.2-15.7 HEMATOCRIT (BEAKER) (test wphy=516) 32.2 % 34.1-44.9 MEAN CORPUSCULAR VOLUME (BEAKER) (test rfyc=514) 93.9 fL 79.4-94.8 MEAN CORPUSCULAR HEMOGLOBIN (BEAKER) (test 31.8 pg 25.6-32.2 lxnl=655) MEAN CORPUSCULAR HEMOGLOBIN CONC (BEAKER) (test 33.9 GM/DL 32.2-35.5 jcrx=947) RED CELL DISTRIBUTION WIDTH (BEAKER) (test 13.2 % 11.7-14.4 sfod=759) PLATELET COUNT (BEAKER) (test jtqk=232) 225 K/CU MM 150-450 MEAN PLATELET VOLUME (BEAKER) (test pxmx=449) 12.9 fL 9.4-12.3 NUCLEATED RED BLOOD CELLS (BEAKER) (test 0 /100 WBC 0-0 gakr=265) NEUTROPHILS RELATIVE PERCENT (BEAKER) (test 60 % kqjl=285) LYMPHOCYTES RELATIVE PERCENT (BEAKER) (test 26 % vzrh=455) MONOCYTES RELATIVE PERCENT (BEAKER) (test 8 % byvf=623) EOSINOPHILS RELATIVE PERCENT (BEAKER) (test 6 % bntz=267) BASOPHILS RELATIVE PERCENT (BEAKER) (test 0 % mdtn=834) NEUTROPHILS ABSOLUTE COUNT (BEAKER) (test 4.83 K/ L 1.56-6.13 exou=207) LYMPHOCYTES ABSOLUTE COUNT (BEAKER) (test 2.09 K/ L 1.18-3.74 mgvd=351) MONOCYTES ABSOLUTE COUNT (BEAKER) (test 0.66 K/ L 0.24-0.36 zxwu=586) EOSINOPHILS ABSOLUTE COUNT (BEAKER) (test 0.48 K/ L 0.04-0.36 mlbm=564) BASOPHILS ABSOLUTE COUNT (BEAKER) (test 0.03 K/ L 0.01-0.08 ybab=824) IMMATURE GRANULOCYTES-RELATIVE PERCENT (BEAKER) 0 % 0-1 (test gazw=0772) POCT-GLUCOSE [id number] 21:31:00 Test Item Value Reference Range Comments POC-GLUCOSE METER (BEAKER) 186 mg/dL 70-110 TESTED AT [address] (test xubj=8218) [facility] [address] POCT-GLUCOSE [id number] 18:45:00 Test Item Value Reference Range Comments POC-GLUCOSE METER (BEAKER) 215 mg/dL 70-110 TESTED AT [address] (test xsae=1600) [facility] [address] POCT-GLUCOSE [id number] 12:34:00 Test Item Value Reference Range Comments POC-GLUCOSE METER (BEAKER) 428 mg/dL 70-110 Notified RN MD/TESTED AT [facility] (test warb=1655) [address] [facility] [address] RAD, CHEST, 1 VIEW, NON [id number] 09:30:00Reason for exam:->Respiratory distress Should this be [...] Hercules Verified Date/Time: 07/12/2017 09:30:37 Reading Location: [facility] Radiology Reading Room POCT-GLUCOSE [id number] 07:54:00 Test Item Value Reference Range Comments POC-GLUCOSE METER (BEAKER) 332 mg/dL 70-110 TESTED AT [facility] [address] [place] [address] (test ripe=0480) [facility] [address] VITAMIN [id number] 06:24:00 Test Item Value Reference Range Comments VITAMIN B12 (BEAKER) (test aiox=272) 318 pg/mL 213-816 BASIC METABOLIC [id number] 05:51:00 Test Item Value Reference Range Comments SODIUM (BEAKER) (test 141 meq/L 136-145 zoya=485) POTASSIUM (BEAKER) (test 3.6 meq/L 3.5-5.1 trke=385) CHLORIDE (BEAKER) (test 108 meq/L 98-107 bovz=578) CO2 (BEAKER) (test 25 meq/L 22-29 parw=729) BLOOD UREA NITROGEN 19 mg/dL 7-21 (BEAKER) (test ajaw=344) CREATININE (BEAKER) (test 0.82 mg/dL 0.57-1.25 lvik=862) GLUCOSE RANDOM (BEAKER) 393 mg/dL 70-105 (test qpvv=606) CALCIUM (BEAKER) (test 8.9 mg/dL 8.4-10.2 vhjc=114) EGFR (BEAKER) (test 70 mL/min/1.73 sq m ESTIMATED GFR IS NOT rnip=4201) ACCURATE CREATININE CLEARANCE IN PREDICTING GLOMERULAR FILTRATION RATE. ESTIMATED GFR IS NOT APPLICABLE FOR DIALYSIS PATIENTS. CBC W/PLT COUNT & AUTO [id number] 05:26:00 Test Item Value Reference Range Comments WHITE BLOOD CELL COUNT (BEAKER) (test aisa=121) 8.0 K/ L 3.5-10.5 RED BLOOD CELL COUNT (BEAKER) (test crrk=572) 3.44 M/ L 3.93-5.22 HEMOGLOBIN (BEAKER) (test ukfn=788) 10.7 GM/DL 11.2-15.7 HEMATOCRIT (BEAKER) (test hssi=046) 32.8 % 34.1-44.9 MEAN CORPUSCULAR VOLUME (BEAKER) (test jjij=328) 95.3 fL 79.4-94.8 MEAN CORPUSCULAR HEMOGLOBIN (BEAKER) (test 31.1 pg 25.6-32.2 vgvv=744) MEAN CORPUSCULAR HEMOGLOBIN CONC (BEAKER) (test 32.6 GM/DL 32.2-35.5 acdi=974) RED CELL DISTRIBUTION WIDTH (BEAKER) (test 13.5 % 11.7-14.4 uezm=236) PLATELET COUNT (BEAKER) (test hgyk=835) 200 K/CU MM 150-450 MEAN PLATELET VOLUME (BEAKER) (test quhw=532) 13.0 fL 9.4-12.3 NUCLEATED RED BLOOD CELLS (BEAKER) (test 0 /100 WBC 0-0 gkcp=434) NEUTROPHILS RELATIVE PERCENT (BEAKER) (test 64 % oweb=012) LYMPHOCYTES RELATIVE PERCENT (BEAKER) (test 22 % wucu=461) MONOCYTES RELATIVE PERCENT (BEAKER) (test 7 % krwt=269) EOSINOPHILS RELATIVE PERCENT (BEAKER) (test 6 % uqcq=905) BASOPHILS RELATIVE PERCENT (BEAKER) (test 1 % vgcs=644) NEUTROPHILS ABSOLUTE COUNT (BEAKER) (test 5.11 K/ L 1.56-6.13 sooe=227) LYMPHOCYTES ABSOLUTE COUNT (BEAKER) (test 1.73 K/ L 1.18-3.74 wfxi=143) MONOCYTES ABSOLUTE COUNT (BEAKER) (test 0.59 K/ L 0.24-0.36 rnvx=414) EOSINOPHILS ABSOLUTE COUNT (BEAKER) (test 0.47 K/ L 0.04-0.36 apfy=945) BASOPHILS ABSOLUTE COUNT (BEAKER) (test 0.05 K/ L 0.01-0.08 dwbe=190) IMMATURE GRANULOCYTES-RELATIVE PERCENT (BEAKER) 0 % 0-1 (test crqk=3851) POCT-GLUCOSE [id number] 22:48:00 Test Item Value Reference Range Comments POC-GLUCOSE METER (BEAKER) 376 mg/dL 70-110 Notified SAMAN HERNANDEZ/TESTED AT [facility] (test clsw=7874) [address] [place] [address] POCT-GLUCOSE [id number] 22:04:00 Test Item Value Reference Range Comments POC-GLUCOSE METER (BEAKER) 434 mg/dL 70-110 Notified SAMAN HERNANDEZ/TESTED AT [facility] (test terh=1715) [address] [place] [address] POCT-GLUCOSE [id number] 18:16:00 Test Item Value Reference Range Comments POC-GLUCOSE METER (BEAKER) 340 mg/dL 70-110 Notified SAMAN HERNANDEZ/TESTED AT [facility] (test nlaq=4637) [address] [place] [address] POCT-GLUCOSE [id number] 12:40:00 Test Item Value Reference Range Comments POC-GLUCOSE METER (BEAKER) 339 mg/dL 70-110 Notified SAMAN HERNANDEZ/TESTED AT [facility] (test jzbt=4185) [address] [place] [address] POCT-GLUCOSE [id number] 08:40:00 Test Item Value Reference Range Comments POC-GLUCOSE METER (BEAKER) 290 mg/dL 70-110 TESTED AT [address] (test fhlx=2373) [facility] [address] RAD, CHEST, 1 VIEW, NON [id number] 08:02:00Reason for exam:-> intubatedShould this be performed [...] stable. No pneumothorax is seen. Signed: Guy Hercules MDReport Verified Date/Time: 07/11/2017 08:02:13 Reading Location: [facility] Radiology Reading Room POCT-GLUCOSE [id number] 06:33:00 Test Item Value Reference Range Comments POC-GLUCOSE METER (BEAKER) 354 mg/dL 70-110 Notified SAMAN HERNANDEZ/TESTED AT [facility] (test otff=9851) [address] [facility] [address] BLOOD GAS, [id number] 05:30:00 Test Item Value Reference Range Comments PH ARTERIAL (BEAKER) (test lxmz=044) 7.42 7.35-7.45 PCO2 ARTERIAL (BEAKER) (test cjmj=839) 29 mmHg 35-45 PO2 ARTERIAL (BEAKER) (test erxz=433) 96 mmHg 80-90 O2 SATURATION ARTERIAL (BEAKER) (test zwiy=797) 97.5 % 96.0-97.0 HCO3 ARTERIAL (BEAKER) (test uhma=077) 18 mmol/L 21-29 BASE EXCESS ARTERIAL (BEAKER) (test wjfo=280) -5.1 mmol/L -2.0-3.0 PATIENT TEMPERATURE (BEAKER) (test kuqr=0698) 37.0 C FIO2 (BEAKER) (test bceb=2335) 21.0 % BASIC METABOLIC [id number] 03:15:00 Test Item Value Reference Range Comments SODIUM (BEAKER) (test 138 meq/L 136-145 rfzg=971) POTASSIUM (BEAKER) (test 3.9 meq/L 3.5-5.1 rpsi=710) CHLORIDE (BEAKER) (test 109 meq/L 98-107 oyfd=793) CO2 (BEAKER) (test 18 meq/L 22-29 flhe=086) BLOOD UREA NITROGEN 18 mg/dL 7-21 (BEAKER) (test vgnc=463) CREATININE (BEAKER) (test 0.79 mg/dL 0.57-1.25 xciv=237) GLUCOSE RANDOM (BEAKER) 349 mg/dL 70-105 (test jcss=589) CALCIUM (BEAKER) (test 8.2 mg/dL 8.4-10.2 axps=462) EGFR (BEAKER) (test 73 mL/min/1.73 sq m ESTIMATED GFR IS NOT jmgi=6450) ACCURATE CREATININE CLEARANCE IN PREDICTING GLOMERULAR FILTRATION RATE. ESTIMATED GFR IS NOT APPLICABLE FOR DIALYSIS PATIENTS. BLOOD GAS, [id number] 03:03:00 Test Item Value Reference Range Comments PH ARTERIAL (BEAKER) (test ekbk=039) 7.46 7.35-7.45 PCO2 ARTERIAL (BEAKER) (test zhrh=286) 31 mmHg 35-45 PO2 ARTERIAL (BEAKER) (test pxlg=782) 62 mmHg 80-90 O2 SATURATION ARTERIAL (BEAKER) (test gynh=483) 93.1 % 96.0-97.0 HCO3 ARTERIAL (BEAKER) (test lhjt=041) 21 mmol/L 21-29 BASE EXCESS ARTERIAL (BEAKER) (test pqrg=833) -1.6 mmol/L -2.0-3.0 PATIENT TEMPERATURE (BEAKER) (test vnsq=7153) 37.0 C FIO2 (BEAKER) (test gbzs=7352) 60.0 % CBC W/PLT COUNT & AUTO [id number] 03:03:00 Test Item Value Reference Range Comments WHITE BLOOD CELL COUNT (BEAKER) (test mcdm=960) 11.5 K/ L 3.5-10.5 RED BLOOD CELL COUNT (BEAKER) (test edbh=114) 3.57 M/ L 3.93-5.22 HEMOGLOBIN (BEAKER) (test xhpa=601) 11.0 GM/DL 11.2-15.7 HEMATOCRIT (BEAKER) (test lrrd=825) 33.3 % 34.1-44.9 MEAN CORPUSCULAR VOLUME (BEAKER) (test outr=292) 93.3 fL 79.4-94.8 MEAN CORPUSCULAR HEMOGLOBIN (BEAKER) (test 30.8 pg 25.6-32.2 nmno=582) MEAN CORPUSCULAR HEMOGLOBIN CONC (BEAKER) (test 33.0 GM/DL 32.2-35.5 wyaz=256) RED CELL DISTRIBUTION WIDTH (BEAKER) (test 13.4 % 11.7-14.4 ezjy=416) PLATELET COUNT (BEAKER) (test debo=488) 181 K/CU MM 150-450 MEAN PLATELET VOLUME (BEAKER) (test rrzp=363) 13.1 fL 9.4-12.3 NUCLEATED RED BLOOD CELLS (BEAKER) (test 0 /100 WBC 0-0 vrst=447) NEUTROPHILS RELATIVE PERCENT (BEAKER) (test 87 % ilpl=956) LYMPHOCYTES RELATIVE PERCENT (BEAKER) (test 6 % azsl=518) MONOCYTES RELATIVE PERCENT (BEAKER) (test 5 % gyhm=081) EOSINOPHILS RELATIVE PERCENT (BEAKER) (test 1 % ampj=043) BASOPHILS RELATIVE PERCENT (BEAKER) (test 1 % rjro=265) NEUTROPHILS ABSOLUTE COUNT (BEAKER) (test 9.98 K/ L 1.56-6.13 csbw=492) LYMPHOCYTES ABSOLUTE COUNT (BEAKER) (test 0.67 K/ L 1.18-3.74 lykp=088) MONOCYTES ABSOLUTE COUNT (BEAKER) (test 0.56 K/ L 0.24-0.36 wlru=920) EOSINOPHILS ABSOLUTE COUNT (BEAKER) (test 0.12 K/ L 0.04-0.36 snzp=027) BASOPHILS ABSOLUTE COUNT (BEAKER) (test 0.07 K/ L 0.01-0.08 yqdk=199) IMMATURE GRANULOCYTES-RELATIVE PERCENT (BEAKER) 1 % 0-1 (test loeb=0653) POCT-GLUCOSE [id number] 00:49:00 Test Item Value Reference Range Comments POC-GLUCOSE METER (BEAKER) 301 mg/dL 70-110 Notified SAMAN HERNANDEZ/TESTED AT [facility] (test xgcv=8876) [address] [facility] [address] TROPONIN [id number] 00:36:00 Test Item Value Reference Range Comments TROPONIN I (BEAKER) (test cmil=716) 0.17 ng/mL 0.00-0.03 Troponin I (TnI) levels [...] and persistent tachyarrhythmia.CREATINE KINASE (CK), TOTAL AND [id number] 00:33:00 Test Item Value Reference Range Comments CREATINE KINASE TOTAL (BEAKER) (test jbyq=121) 168 U/L 29-200 CREATINE KINASE-MB (BEAKER) (test apzo=293) 1.2 ng/mL 0.0-6.6 CREATINE KINASE-MB INDEX (BEAKER) (test nckj=070) 0.7 % CK-MB Reference Range:<6.7 Normal6.7-10.0 Borderline>10.0 AbnormalPOCT-GLUCOSE [id number] 18:13:00 Test Item Value Reference Range Comments POC-GLUCOSE METER (BEAKER) 302 mg/dL 70-110 TESTED AT [address] (test hfxv=1167) [place] [id number] TROPONIN [id number] 17:15:00 Test Item Value Reference Range Comments TROPONIN I (BEAKER) (test gyto=416) 0.32 ng/mL 0.00-0.03 Troponin I (TnI) levels [...] and persistent tachyarrhythmia.CREATINE KINASE (CK), TOTAL AND [id number] 17:05:00 Test Item Value Reference Range Comments CREATINE KINASE TOTAL (BEAKER) (test ekjn=972) 213 U/L 29-200 CREATINE KINASE-MB (BEAKER) (test pvjo=886) 2.1 ng/mL 0.0-6.6 CREATINE KINASE-MB INDEX (BEAKER) (test nkdh=988) 1.0 % CK-MB Reference Range:<6.7 Normal6.7-10.0 Borderline>10.0 AbnormalPOCT-GLUCOSE [id number] 12:22:00 Test Item Value Reference Range Comments POC-GLUCOSE METER (BEAKER) 240 mg/dL 70-110 TESTED AT [address] (test xgjp=7286) [facility] [address] B-TYPE NATRIURETIC FACTOR (BNP)[id number] 12:01:00 Test Item Value Reference Range Comments B-TYPE NATRIURETIC PEPTIDE (BEAKER) (test 524 pg/mL 0-100 kljf=518) POCT-GLUCOSE [id number] 06:33:00 Test Item Value Reference Range Comments POC-GLUCOSE METER (BEAKER) 227 mg/dL 70-110 TESTED AT [facility] [address] (test tdfw=1313) [facility] [address] COMPREHENSIVE METABOLIC [id number] 06:19:00 Test Item Value Reference Range Comments TOTAL PROTEIN (BEAKER) 6.7 gm/dL 6.0-8.3 (test bqui=344) ALBUMIN (BEAKER) (test 3.2 g/dL 3.5-5.0 fbzc=6997) ALKALINE PHOSPHATASE 77 U/L 40-150 (BEAKER) (test uuct=688) BILIRUBIN TOTAL (BEAKER) 0.9 mg/dL 0.2-1.2 (test fqyc=268) SODIUM (BEAKER) (test 139 meq/L 136-145 dzko=186) POTASSIUM (BEAKER) (test 3.7 meq/L 3.5-5.1 mayv=654) CHLORIDE (BEAKER) (test 109 meq/L 98-107 yqvv=835) CO2 (BEAKER) (test 18 meq/L 22-29 zade=471) BLOOD UREA NITROGEN 13 mg/dL 7-21 (BEAKER) (test rcug=262) CREATININE (BEAKER) (test 0.69 mg/dL 0.57-1.25 kjvb=259) GLUCOSE RANDOM (BEAKER) 250 mg/dL 70-105 (test culy=184) CALCIUM (BEAKER) (test 8.0 mg/dL 8.4-10.2 hznu=276) AST (SGOT) (BEAKER) (test 18 U/L 5-34 uttm=184) ALT (SGPT) (BEAKER) (test 13 U/L 6-55 muzq=099) EGFR (BEAKER) (test 85 mL/min/1.73 sq m ESTIMATED GFR IS NOT golj=4022) ACCURATE CREATININE CLEARANCE IN PREDICTING GLOMERULAR FILTRATION RATE. ESTIMATED GFR IS NOT APPLICABLE FOR DIALYSIS PATIENTS. BASIC METABOLIC [id number] 06:19:00 Test Item Value Reference Range Comments SODIUM (BEAKER) (test 139 meq/L 136-145 fqhb=949) POTASSIUM (BEAKER) (test 3.7 meq/L 3.5-5.1 tqew=312) CHLORIDE (BEAKER) (test 109 meq/L 98-107 ezhf=477) CO2 (BEAKER) (test 18 meq/L 22-29 uypx=332) BLOOD UREA NITROGEN 13 mg/dL 7-21 (BEAKER) (test rkzr=676) CREATININE (BEAKER) (test 0.69 mg/dL 0.57-1.25 iivl=393) GLUCOSE RANDOM (BEAKER) 250 mg/dL 70-105 (test aqkc=322) CALCIUM (BEAKER) (test 8.0 mg/dL 8.4-10.2 cxqc=924) EGFR (BEAKER) (test 85 mL/min/1.73 sq m ESTIMATED GFR IS NOT nujs=4993) ACCURATE CREATININE CLEARANCE IN PREDICTING GLOMERULAR FILTRATION RATE. ESTIMATED GFR IS NOT APPLICABLE FOR DIALYSIS PATIENTS. BLOOD GAS, [id number] 06:13:00 Test Item Value Reference Range Comments PH ARTERIAL (BEAKER) (test dlti=267) 7.42 7.35-7.45 PCO2 ARTERIAL (BEAKER) (test dxqv=374) 34 mmHg 35-45 PO2 ARTERIAL (BEAKER) (test cnvx=717) 106 mmHg 80-90 O2 SATURATION ARTERIAL (BEAKER) (test udgf=228) 98.0 % 96.0-97.0 HCO3 ARTERIAL (BEAKER) (test lpxn=147) 22 mmol/L 21-29 BASE EXCESS ARTERIAL (BEAKER) (test kdxs=962) -2.3 mmol/L -2.0-3.0 PATIENT TEMPERATURE (BEAKER) (test edzk=9834) 37.0 C FIO2 (BEAKER) (test dzfv=9713) 50.0 % CBC W/PLT COUNT & AUTO [id number] 05:53:00 Test Item Value Reference Range Comments WHITE BLOOD CELL COUNT (BEAKER) (test yrts=888) 12.9 K/ L 3.5-10.5 RED BLOOD CELL COUNT (BEAKER) (test wyfd=263) 3.78 M/ L 3.93-5.22 HEMOGLOBIN (BEAKER) (test avsz=183) 11.9 GM/DL 11.2-15.7 HEMATOCRIT (BEAKER) (test lovd=336) 35.5 % 34.1-44.9 MEAN CORPUSCULAR VOLUME (BEAKER) (test hsmh=159) 93.9 fL 79.4-94.8 MEAN CORPUSCULAR HEMOGLOBIN (BEAKER) (test 31.5 pg 25.6-32.2 udja=266) MEAN CORPUSCULAR HEMOGLOBIN CONC (BEAKER) (test 33.5 GM/DL 32.2-35.5 fpjy=896) RED CELL DISTRIBUTION WIDTH (BEAKER) (test 13.5 % 11.7-14.4 ugxr=083) PLATELET COUNT (BEAKER) (test orqi=075) 198 K/CU MM 150-450 MEAN PLATELET VOLUME (BEAKER) (test mgbi=855) 12.7 fL 9.4-12.3 NUCLEATED RED BLOOD CELLS (BEAKER) (test 0 /100 WBC 0-0 ftnh=487) NEUTROPHILS RELATIVE PERCENT (BEAKER) (test 77 % izbf=827) LYMPHOCYTES RELATIVE PERCENT (BEAKER) (test 14 % ljgy=776) MONOCYTES RELATIVE PERCENT (BEAKER) (test 7 % ttfn=721) EOSINOPHILS RELATIVE PERCENT (BEAKER) (test 2 % tadv=305) BASOPHILS RELATIVE PERCENT (BEAKER) (test 0 % dnez=659) NEUTROPHILS ABSOLUTE COUNT (BEAKER) (test 9.92 K/ L 1.56-6.13 jmyi=482) LYMPHOCYTES ABSOLUTE COUNT (BEAKER) (test 1.74 K/ L 1.18-3.74 sbww=480) MONOCYTES ABSOLUTE COUNT (BEAKER) (test 0.85 K/ L 0.24-0.36 nzok=085) EOSINOPHILS ABSOLUTE COUNT (BEAKER) (test 0.22 K/ L 0.04-0.36 xxeq=770) BASOPHILS ABSOLUTE COUNT (BEAKER) (test 0.05 K/ L 0.01-0.08 jyrk=991) IMMATURE GRANULOCYTES-RELATIVE PERCENT (BEAKER) 1 % 0-1 (test zuel=6526) LACTIC ACID, ARTERIAL, WHOLE [id number] 05:17:00 Test Item Value Reference Range Comments LACTATE BLOOD ARTERIAL (2) (BEAKER) (test 0.8 mmol/L 0.5-2.2 yimu=2827) Effective 09/02/2015: Units/Reference Range ChangeNew: 0.5-2.2 mmol/L Previous: 5 -20 mg/dLRAD, CHEST, 1 VIEW, NON [id number] 03:58:00Reason for exam:-> concern for aspirationShould this be performed at the bedside?->YesFINAL REPORT RAD, CHEST, 1 VIEW, NON DEPT INDICATION: concern for aspiration COMPARISON: Prior day's exam TECHNIQUE: Portable frontal view of the chest. IMPRESSION: Interval extubation.Stable cardiomegaly.Worsening pulmonary interstitial edema.No pneumothorax.No acute osseous abnormality. Signed: Jb Veronica MDReport Verified Date/Time: 07/10/2017 03:58:42 Reading Location: [address] Ortho Consult Reading Room CT, BRAIN, WITHOUT [id number] 03:09:00Reason for exam:->Stroke evaluationFINAL REPORT CT, BRAIN, [...] MDReport Verified Date/Time: 07/10/2017 03:09:32 Reading Location: [facility] C013X Ortho Consult Reading Room POCT- GLUCOSE [id number] 00:20:00 Test Item Value Reference Range Comments POC-GLUCOSE METER (BEAKER) 200 mg/dL 70-110 TESTED AT [facility] [address] [place] [address] (test brtu=6068) [facility] [id number] POCT-GLUCOSE [id number] 20:32:00 Test Item Value Reference Range Comments POC-GLUCOSE METER (BEAKER) 237 mg/dL 70-110 TESTED AT [address] (test jdor=4000) [facility] [address] URINALYSIS W/ [id number] 20:08:00 Test Item Value Reference Range Comments COLOR (BEAKER) (test bmpc=685) Light Yellow CLARITY (BEAKER) (test vknw=016) Clear SPECIFIC GRAVITY UA (BEAKER) (test umlk=448) 1.009 1.001-1.035 PH UA (BEAKER) (test xjwu=775) 5.5 5.0-8.0 PROTEIN UA (BEAKER) (test aywc=020) 70 mg/dL Negative GLUCOSE UA (BEAKER) (test lnaf=731) 50 mg/dL Negative KETONES UA (BEAKER) (test zrfl=618) Negative Negative BILIRUBIN UA (BEAKER) (test fiqn=598) Negative Negative BLOOD UA (BEAKER) (test sslt=293) Negative Negative NITRITE UA (BEAKER) (test ajdl=845) Negative Negative LEUKOCYTE ESTERASE UA (BEAKER) (test ksad=217) Trace Negative UROBILINOGEN UA (BEAKER) (test rgrv=911) 0.2 mg/dL 0.2-1.0 RBC UA (BEAKER) (test qtfh=121) < /HPF WBC UA (BEAKER) (test yjyc=226) 25 /HPF BACTERIA (BEAKER) (test nwlm=479) Rare MUCUS (BEAKER) (test jafw=9313) Rare SQUAMOUS EPITHELIAL (BEAKER) (test dzuq=424) 1 /HPF SOURCE(BEAKER) (test dpxu=3383) POCT-GLUCOSE [id number] 18:44:00 Test Item Value Reference Range Comments POC-GLUCOSE METER (BEAKER) 174 mg/dL 70-110 TESTED AT [address] (test ikgg=3984) [facility] [address] HEMOGLOBIN [id number] 14:47:00 Test Item Value Reference Range Comments HEMOGLOBIN A1C (BEAKER) (test oqwz=312) 12.4 % 4.3-6.1 POCT-GLUCOSE [id number] 11:44:00 Test Item Value Reference Range Comments POC-GLUCOSE METER (BEAKER) 149 mg/dL 70-110 TESTED AT [address] (test iydq=5622) [facility] [address] RAD, CHEST, 1 VIEW, NON [id number] 07:42:00Reason for exam:-> intubatedShould this be performed [...] Verified Date/ Time: 07/09/2017 07:42:12 Reading Location: [address] Body Reading [facility] IV CONTRAST - [id number] 07:37:00Reason for exam:->L. MCA strokeFINAL REPORT CT [...] Joseph Verified Date/Time: 07/09/2017 07:37:39 Reading Location: [facility] C013V Neuro Reading Room TSH/FREE T4 IF [id number] 05:41:00 Test Item Value Reference Range Comments THYROID STIMULATING HORMONE (BEAKER) (test 0.60 uIU/mL 0.35-4.94 wbqq=422) BASIC METABOLIC [id number] 04:33:00 Test Item Value Reference Range Comments SODIUM (BEAKER) (test 138 meq/L 136-145 pjti=153) POTASSIUM (BEAKER) (test 3.4 meq/L 3.5-5.1 bqzj=161) CHLORIDE (BEAKER) (test 107 meq/L 98-107 gnkz=535) CO2 (BEAKER) (test 20 meq/L 22-29 ovyo=146) BLOOD UREA NITROGEN 17 mg/dL 7-21 (BEAKER) (test umgu=433) CREATININE (BEAKER) (test 0.68 mg/dL 0.57-1.25 etep=608) GLUCOSE RANDOM (BEAKER) 118 mg/dL 70-105 (test mnsb=628) CALCIUM (BEAKER) (test 7.9 mg/dL 8.4-10.2 puex=086) EGFR (BEAKER) (test mL/min/1.73 sq m INSUFFICIENT CLINICAL DATA mcbd=3116) TO CALCULATE ESTIMATED GFR. LIPID [id number] 04:30:00 Test Item Value Reference Range Comments TRIGLYCERIDES (BEAKER) (test iyib=222) 300 mg/dL CHOLESTEROL (BEAKER) (test izyd=469) 204 mg/dL HDL CHOLESTEROL (BEAKER) (test imuv=205) 33 mg/dL LDL CHOLESTEROL CALCULATED (BEAKER) (test 111 mg/dL fzlb=305) Triglyceride Reference Range: Low Risk <150 Borderline 150- 199 High Risk 200-499 Very High Risk >=500Cholesterol Reference Range: Low Risk <200 Borderline 200-239 High Risk > 240HDL Cholesterol Reference Range: Low Risk >=60 High Risk <40LDL Cholesterol Reference Range: Optimal <100 Near Optimal 100-129 Borderline 130-159 High 160-189 Very High >=190BLOOD GAS, [id number] 04:11:00 Test Item Value Reference Range Comments PH ARTERIAL (BEAKER) (test jlqy=306) 7.42 7.35-7.45 PCO2 ARTERIAL (BEAKER) (test kzsx=754) 37 mmHg 35-45 PO2 ARTERIAL (BEAKER) (test uwzb=794) 90 mmHg 80-90 O2 SATURATION ARTERIAL (BEAKER) (test mdzk=654) 97.1 % 96.0-97.0 HCO3 ARTERIAL (BEAKER) (test eitx=606) 24 mmol/L 21-29 BASE EXCESS ARTERIAL (BEAKER) (test svdv=786) -0.6 mmol/L -2.0-3.0 PATIENT TEMPERATURE (BEAKER) (test ngsi=7446) 37.0 C FIO2 (BEAKER) (test hqpz=0699) 40.0 % CBC W/PLT COUNT & AUTO [id number] 04:10:00 Test Item Value Reference Range Comments WHITE BLOOD CELL COUNT (BEAKER) (test yvjc=107) 12.9 K/ L 3.5-10.5 RED BLOOD CELL COUNT (BEAKER) (test oabo=679) 3.88 M/ L 3.93-5.22 HEMOGLOBIN (BEAKER) (test mscx=224) 12.0 GM/DL 11.2-15.7 HEMATOCRIT (BEAKER) (test owfq=249) 35.8 % 34.1-44.9 MEAN CORPUSCULAR VOLUME (BEAKER) (test vgnx=979) 92.3 fL 79.4-94.8 MEAN CORPUSCULAR HEMOGLOBIN (BEAKER) (test 30.9 pg 25.6-32.2 vzlt=892) MEAN CORPUSCULAR HEMOGLOBIN CONC (BEAKER) (test 33.5 GM/DL 32.2-35.5 loxz=067) RED CELL DISTRIBUTION WIDTH (BEAKER) (test 13.4 % 11.7-14.4 gzri=005) PLATELET COUNT (BEAKER) (test qlki=143) 203 K/CU MM 150-450 MEAN PLATELET VOLUME (BEAKER) (test obgv=146) 12.7 fL 9.4-12.3 NUCLEATED RED BLOOD CELLS (BEAKER) (test 0 /100 WBC 0-0 zpqx=329) NEUTROPHILS RELATIVE PERCENT (BEAKER) (test 75 % gjnn=731) LYMPHOCYTES RELATIVE PERCENT (BEAKER) (test 18 % zotf=754) MONOCYTES RELATIVE PERCENT (BEAKER) (test 6 % fqqs=355) EOSINOPHILS RELATIVE PERCENT (BEAKER) (test 1 % bubn=040) BASOPHILS RELATIVE PERCENT (BEAKER) (test 0 % bqmr=503) NEUTROPHILS ABSOLUTE COUNT (BEAKER) (test 9.66 K/ L 1.56-6.13 cvby=173) LYMPHOCYTES ABSOLUTE COUNT (BEAKER) (test 2.30 K/ L 1.18-3.74 ehln=694) MONOCYTES ABSOLUTE COUNT (BEAKER) (test 0.76 K/ L 0.24-0.36 kwgq=016) EOSINOPHILS ABSOLUTE COUNT (BEAKER) (test 0.10 K/ L 0.04-0.36 giuc=928) BASOPHILS ABSOLUTE COUNT (BEAKER) (test 0.04 K/ L 0.01-0.08 uyuq=312) IMMATURE GRANULOCYTES-RELATIVE PERCENT (BEAKER) 0 % 0-1 (test syxx=0297) BASIC METABOLIC [id number] 23:50:00 Test Item Value Reference Range Comments SODIUM (BEAKER) (test 139 meq/L 136-145 bnjn=257) POTASSIUM (BEAKER) (test 3.5 meq/L 3.5-5.1 fpsd=950) CHLORIDE (BEAKER) (test 106 meq/L 98-107 jxjq=049) CO2 (BEAKER) (test 22 meq/L 22-29 pwxe=069) BLOOD UREA NITROGEN 19 mg/dL 7-21 (BEAKER) (test mgrf=335) CREATININE (BEAKER) (test 0.68 mg/dL 0.57-1.25 gmsc=374) GLUCOSE RANDOM (BEAKER) 114 mg/dL 70-105 (test qzvt=904) CALCIUM (BEAKER) (test 8.2 mg/dL 8.4-10.2 yhgr=387) EGFR (BEAKER) (test mL/min/1.73 sq m INSUFFICIENT CLINICAL DATA ezvr=1395) TO CALCULATE ESTIMATED GFR. HEPATIC FUNCTION [id number] 23:26:00 Test Item Value Reference Range Comments TOTAL PROTEIN (BEAKER) (test zsqb=487) 6.7 gm/dL 6.0-8.3 ALBUMIN (BEAKER) (test dagk=7738) 3.3 g/dL 3.5-5.0 BILIRUBIN TOTAL (BEAKER) (test syew=744) 0.4 mg/dL 0.2-1.2 BILIRUBIN DIRECT (BEAKER) (test dfqv=052) 0.2 mg/dL 0.1-0.5 ALKALINE PHOSPHATASE (BEAKER) (test xyik=748) 76 U/L 40-150 AST (SGOT) (BEAKER) (test vead=610) 22 U/L 5-34 ALT (SGPT) (BEAKER) (test gebq=074) 16 U/L 6-55 CBC W/PLT COUNT & AUTO [id number] 23:25:00 Test Item Value Reference Range Comments WHITE BLOOD CELL COUNT (BEAKER) (test vumt=767) 14.1 K/ L 3.5-10.5 RED BLOOD CELL COUNT (BEAKER) (test bfzp=920) 4.01 M/ L 3.93-5.22 HEMOGLOBIN (BEAKER) (test hvid=138) 12.6 GM/DL 11.2-15.7 HEMATOCRIT (BEAKER) (test rlbt=508) 36.7 % 34.1-44.9 MEAN CORPUSCULAR VOLUME (BEAKER) (test ucnn=994) 91.5 fL 79.4-94.8 MEAN CORPUSCULAR HEMOGLOBIN (BEAKER) (test 31.4 pg 25.6-32.2 ffzi=214) MEAN CORPUSCULAR HEMOGLOBIN CONC (BEAKER) (test 34.3 GM/DL 32.2-35.5 gwvp=496) RED CELL DISTRIBUTION WIDTH (BEAKER) (test 13.2 % 11.7-14.4 gfkb=924) PLATELET COUNT (BEAKER) (test cznc=907) 212 K/CU MM 150-450 MEAN PLATELET VOLUME (BEAKER) (test jnlx=251) 12.6 fL 9.4-12.3 NUCLEATED RED BLOOD CELLS (BEAKER) (test 0 /100 WBC 0-0 ysvg=282) NEUTROPHILS RELATIVE PERCENT (BEAKER) (test 78 % melr=143) LYMPHOCYTES RELATIVE PERCENT (BEAKER) (test 15 % trcj=435) MONOCYTES RELATIVE PERCENT (BEAKER) (test 7 % ruuf=776) EOSINOPHILS RELATIVE PERCENT (BEAKER) (test 1 % biak=507) BASOPHILS RELATIVE PERCENT (BEAKER) (test 0 % nwwb=442) NEUTROPHILS ABSOLUTE COUNT (BEAKER) (test 10.90 K/ L 1.56-6.13 ncks=068) LYMPHOCYTES ABSOLUTE COUNT (BEAKER) (test 2.10 K/ L 1.18-3.74 qyle=668) MONOCYTES ABSOLUTE COUNT (BEAKER) (test 0.92 K/ L 0.24-0.36 edol=575) EOSINOPHILS ABSOLUTE COUNT (BEAKER) (test 0.09 K/ L 0.04-0.36 sgdh=095) BASOPHILS ABSOLUTE COUNT (BEAKER) (test 0.03 K/ L 0.01-0.08 owrq=951) IMMATURE GRANULOCYTES-RELATIVE PERCENT (BEAKER) 0 % 0-1 (test whgq=3982) PROTHROMBIN [id number] 23:12:00 Test Item Value Reference Range Comments PROTIME (BEAKER) (test pztv=863) 14.2 seconds 11.7-14.7 INR (BEAKER) (test xitl=662) 1.1 <=5.9 RECOMMENDED COUMADIN/WARFARIN INR THERAPY RANGESSTANDARD DOSE: 2.0 - 3.0 Includes: PROPHYLAXIS forvenous thrombosis, systemic embolization; TREATMENT for venous thrombosis and/or pulmonary embolus.HIGH RISK: Target INR is 2.5-3.5 for patients with mechanical heart valves.POCT-GLUCOSE [id number] 21:38:00 Test Item Value Reference Range Comments POC-GLUCOSE METER (BEAKER) 94 mg/dL 70-110 TESTED AT [facility] [address] [place] [address] (test cmgy=0345) [facility] [address] [address], COMMON CAROTID OR INNOMINATE W EXTRACRANIAL [...] common femoral artery x1 MATERIALS EMPLOYED:1. 8 Montenegrin short sheath 2. 5 Montenegrin 125cm diagnostic catheter3. Bentson guidewire4. Terumo 0.035 LT glidewire5. Flowgate 8f Balloon Guide Catheter8. 8 [place]grin Angioseal device INDICATIONS:The patient is a 67-year- old female with history of hypertension, diabetes and prior stroke who presented with acute onset aphasia in her hometown of [place] around 11:00 AM. She was evaluated and transferred to [facility] for further evaluation treatment. On arrival, the [...] the puncture site was confirmed, a 8 Montenegrin short sheath was inserted over a Bentson wire and was maintained on heparinized saline flush throughout the remainder of the procedure. Using coaxial technique, a preflushed 5 Montenegrin 125cm diagnostic glide catheter on constant heparinized saline flush was placed through a pre- flushed and pre-prepped 8 [place]grin Flowgate balloon Guide catheter. The two catheters [...] seen. [facility] The femoral sheath was removed and hemostasis achieved with an 8 Mont[place]grin Angioseal and manual compression. The patient tolerated [...] Verified Date/Time: 07/08/2017 18: 24:25 Reading Location: [facility] Y8 Neuro Angio Reading Room . [facility] CTANGIO [id number] 15:00:00FINAL REPORT CLINICAL HISTORY: Stroke TECHNIQUE: Contiguous [...] FINDINGS: There is no evidence for a [place] first order branch vessel occlusion. [...] MDReport Verified Date/Time: 2017 15:00:43 Reading Location: [address] Neuro Reading Room CT, CAROTID , [id number] 15:00:00FINAL REPORT CLINICAL HISTORY: Stroke TECHNIQUE: Contiguous [...] FINDINGS: There is no evidence for a [place] first order branch vessel occlusion. [...] MDReport Verified Date/Time: 2017 15:00:43 Reading Location: [address] Neuro Reading Room CT, CEREBRAL PERFUSION [id number] 15:00:00FINAL REPORT CLINICAL HISTORY: Stroke TECHNIQUE: Contiguous [...] FINDINGS: There is no evidence for a [place] first order branch vessel occlusion. [...] Verified Date/ Time: 07/08/2017 15:00:43 Reading Location: [address] Neuro Reading Room . [facility], BRAIN/STROKE [id number] 14:24:00FINAL REPORT CT Head without contrast CLINICAL [...] MDReport Verified Date/Time: 07/08/2017 14:24:44 Reading Location: [facility] B1 C013V Neuro Reading Room
[2017-08-31] MEDS ORDERED: LORazepam 2 MG/ML VIAL ONE (17:38)
--- NOTE | 2017-08-31 17:45 | RAD REPORT ---
EXAM DESCRIPTION: CT - Ct Stroke Brain Wo Cont - 08/31/2017 5:38 pm CLINICAL HISTORY: CVA COMPARISON: 08/01/2017, 07/08/2017 TECHNIQUE: All CT scans are performed using dose optimization technique as appropriate and may inclu de automated exposure control or mA/KV adjustment according to patient size. FINDINGS: No intracranial hemorrhage, hydrocephalus or extra-axial fluid collection.3 cm area of dim inished density seen in the right temporal lobe of suspicious for acute to subacute infarct.Mild brai n atrophy with mild chronic periventricular and deep white matter chronic microvascular ischemic healy ges also noted. No midline shift. The paranasal sinuses and mastoids are clear. The calvarium is intact. Heavy vertebral artery calcifi cation noted. IMPRESSION: 3 cm area of diminished density right temporal lobe is suspicious for acute to subacute infarct. MR brain followup would be useful for further assessment. The findings were discussed with RINKU Giles on 08/31/2017 at 5:27 p.m. by telephone.
[2017-08-31 18:17] LABS: Absolute Lymphocytes (CBC) 1.1 K/uL (0.7-4.9); Absolute Monocytes 0.4 K/uL (0.1-1.3); Absolute Neutrophil 9.7 K/uL (1.8-8.0); Basophils % 0.5 % (0-1.3); Eosinophils % 0.2 % (0-4.4); Hematocrit 43.5 % (36.0-45.0); Lymphocytes % 9.6 % (15.3-44.8); MCH 31.4 pg (27.0-35.0); MPV 11.3 fL (7.6-11.3); Monocytes % 3.8 % (3.3-12.3); RBC Red Blood Cell Count 4.57 M/uL (3.86-4.86)
[2017-08-31 18:20] LABS: Bicarbonate 27 mEq/L (21-31); Glucose Level 121 mg/dL (65-120); Potassium 3.8 mEq/L (3.6-5.0); Sodium Level 138 mEq/L (135-145)
[2017-08-31 18:21] LABS: BUN Blood Urea Nitrogen 24 mg/dL (6-20); Protime INR 0.92
[2017-08-31] MEDS ORDERED: FOLIC ACID 5 MG/ML VIAL ONE (18:32)
--- NOTE | 2017-08-31 18:44 | EDPHYS ---
Physician Documentation [facility] Name: Apoorva Christie Age: 67 yrs Sex: Female : 1950 Arrival Date: 08/31/2017 Time: 16:53 Bed 30 Private MD: Chapin Arias R ED Physician Genaro Garces HPI: 08/31 17:33 This 67 yrs old Female presents to ER via Ambulatory with complaints of cp Slurred Speech. 17:33 The patient presents to the emergency department with a speech or higher order brain cp function problem, combative. Onset: The symptoms/episode began/occurred at an unknown time. Associated signs and symptoms: Pertinent negatives: fever. 17:33 Patient's baseline: Neuro: alert and fully oriented, Motor: right-sided weakness, cp Ambulation: walks without assistance, Speech: normal, The patient has a previous history of CVA. Current symptoms: confusion, decreased level of consciousness, is sleeping but easy to arouse, combative. The patient has experienced similar episodes in the past, several times. Historical: - Allergies: 17:07 codeine sulfate; hj - Home Meds: 17:07 amlodipine 10 mg tab [Active]; aspirin 81 mg Oral chew [Active]; carvedilol 6.25 mg hj Oral tab [Active]; lisinopril 40 mg Oral tab [Active]; Novolin N Sub-Q [Active]; atorvastatin 20 mg oral tab 1 tab once daily [Active]; donepezil 5 mg oral tab 1 tab once daily [Active]; Lantus 100 unit/mL Sub-Q soln [Active]; - PMHx: 17:07 brain blockage; Cirrhosis; CVA; Diabetes - IDDM; Hypertension; meningitis; progressive hj tremors; - PSHx: 17:07 Cholecystectomy; Knee surgery; ; Hysterectomy; hj - Immunization history:: Adult Immunizations up to date. - Social history:: Smoking status: Patient/guardian denies using tobacco. ROS: 17:38 Constitutional: Negative for fever. cp 17:38 Neuro: Positive for altered mental status. cp 17:38 All other systems are negative. Exam: 17:08 ECG was reviewed by the Attending Physician. cp 17:38 Head/Face: Normocephalic, atraumatic. cp 17:38 Constitutional: The patient appears in no acute distress, non-diaphoretic, non-toxic, well developed, well nourished. 17:38 Eyes: Periorbital structures: appear normal, Pupils: equal, round, and reactive to light and accomodation, Conjunctiva: normal, no exudate, no injection, Sclera: no appreciated abnormality, Lids and lashes: appear normal, bilaterally. 17:38 ENT: External ear(s): are unremarkable, Ear canal(s): are normal, clear, TM's: bulging, is not appreciated, bilaterally, dullness, bilaterally, erythema, is not appreciated, bilaterally, Nose: is normal, Mouth: Lips: moist, Oral mucosa: moist, Posterior pharynx: is normal, airway is patent, no erythema, no exudate. 17:38 Neck: ROM/movement: is normal, is supple, without pain, no range of motions limitations, no meningismus, no nuchal rigidity. 17:38 Chest/axilla: Inspection: normal, Palpation: is normal, no crepitus, no tenderness. 17:38 Cardiovascular: Rate: normal, Rhythm: regular. 17:38 Respiratory: the patient does not display signs of respiratory distress, Respirations: normal, no use of accessory muscles, no retractions, no splinting, no tachypnea, labored breathing, is not present, Breath sounds: are clear throughout, no decreased breath sounds, no stridor, no wheezing. 17:38 Abdomen/GI: Inspection: abdomen appears normal, Bowel sounds: active, all quadrants, Palpation: abdomen is soft and non-tender, in all quadrants, rebound tenderness, is not appreciated, involuntary guarding, is not appreciated. 17:38 Skin: cellulitis, is not appreciated, no rash present. 17:38 Neuro: Orientation: to person, Mentation: confused, sleepy, combative. Vital Signs: 17:03 BP 166 / 101; Pulse 88; Resp 18; Temp 98.0(O); Pulse Ox 99% on R/A; Weight 84.82 kg; hj Height 5 ft. 7 in. (170.18 cm); 18:30 BP 219 / 98; Pulse 102; Resp 16; Pulse Ox 96% on R/A; lk1 18:50 BP 173 / 96; Pulse 102; Resp 16; Pulse Ox 97% on R/A; lk1 19:30 BP 197 / 66; Pulse 75; Resp 18; Pulse Ox 100% on R/A; Pain 0/10; lk1 20:30 BP 193 / 75; Pulse 79; Resp 16; Pulse Ox 97% on R/A; lk1 17:03 Body Mass Index 29.29 (84.82 kg, 170.18 cm) hj NIH Stroke Scale Scores: 17:34 NIHSS Score: 11 lk1 22:00 NIHSS Score: 12 lk1 MDM: 17:15 Patient medically screened. cp 17:34 ED course: patient not candidate for tpa. unknown onset of symptoms. last reported cp normal was 1030 today. 18:34 Data reviewed: vital signs, nurses notes, lab test result(s), EKG, radiologic studies, cp CT scan, plain films. 18:34 Response to treatment: There is no appreciated change of the patient's symptoms at this cp time, no change in mental status. 18:35 Physician consultation: Scott Conti MD was called at 18:36, was contacted at 18:36, cp regarding consult, patient's condition. 18:41 Physician consultation: Chapin Arias MD was called at 18:41, was contacted at 18:42, cp regarding admission, to the telemetry unit. patient's condition. 08/31 17:17 Order name: Basic Metabolic Panel; Complete Time: 18:32 mo 08/31 18:32 Interpretation: Normal except: CL 100; GLUC 121; BUN 24. 08/31 17:17 Order name: CBC with Diff; Complete Time: 18:32 mo 08/31 18:32 Interpretation: Normal except: WBC 11.3; MILTON% 85.9; LYM% 9.6; NEUT A 9.7. 08/31 17:17 Order name: Protime (+inr); Complete Time: 18:32 mo 08/31 17:17 Order name: Ptt, Activated; Complete Time: 18:32 mo 08/31 17:17 Order name: Urine Microscopic Only mo 08/31 17:32 Order name: Glucose, Ancillary Testing; Complete Time: 17:50 EDMS 08/31 19:05 Order name: Glucose, Ancillary Testing; Complete Time: 19:20 EDMS 08/31 19:50 Order name: Blood Culture Adult (2) 08/31 20:04 Order name: UDS 08/31 20:09 Order name: Urine Dipstick--Ancillary (enter results) rg2 08/31 20:32 Order name: Urine Dipstick-Ancillary [facility] 08/31 21:18 Order name: Urine Drug Screen [facility] 08/31 17:17 Order name: Accucheck; Complete Time: 17:23 mo 08/31 17:17 Order name: Cardiac monitoring; Complete Time: 19:30 mo 08/31 17:17 Order name: EKG - Nurse/Tech; Complete Time: 19:30 mo 08/31 17:17 Order name: IV Saline Lock; Complete Time: 19:30 mo 08/31 17:17 Order name: Labs collected and sent; Complete Time: 19:30 mo 08/31 17:17 Order name: NPO; Complete Time: 19:30 mo 08/31 17:17 Order name: O2 Per Protocol; Complete Time: 19:30 mo 08/31 17:34 Order name: Ct Stroke Brain Wo Cont; Complete Time: 17:50 [facility] 08/31 18:33 Interpretation: Report reviewed. 08/31 17:35 Order name: Brain Wo Cont; Complete Time: 19:20 [facility] 08/31 17:39 Order name: EKG Electrocardiogram [facility] 08/31 17:54 Order name: Chest Single View; Complete Time: 20:04 [facility] 08/31 17:17 Order name: O2 Sat Monitoring; Complete Time: 19:30 mo 08/31 17:17 Order name: Stroke Swallow Screen; Complete Time: 19:30 mo 08/31 17:17 Order name: Urine Dipstick-Ancillary (obtain specimen); Complete Time: 19:58 mo 08/31 19:50 Order name: Byrd; Complete Time: 19:56 cp EC:08 Rate is 90 beats/min. Rhythm is regular. [place] interval is normal. QRS interval is normal. cp QT interval is normal. Interpreted by me. Reviewed by me. Administered Medications: 17:40 Drug: Ativan 1 mg Route: IVP; Site: left antecubital; lk1 17:50 Follow up: Response: No adverse reaction; Marked relief of symptoms lk1 18:28 Drug: foLIC Acid 1 mg Route: IVPB; Site: left antecubital; lk1 18:45 Follow up: Response: No adverse reaction; IV Status: Completed infusion lk1 18:36 CANCELLED (Physician Discretion): D50W 25 ml IVP once; (0.5 amp) jessica Point of Care Testing: Blood Glucose: 17:08 Blood Glucose: 83 mg/dL; hj 18:37 Blood Glucose: 141 mg/dL; lk1 Ranges: Critical Glucose Levels:Adult <50 mg/dl or >400 mg/dl <40 mg/dl or >180 mg/dl Disposition: 22:05 Chart complete. cp 09/01 06:57 Co-signature as Attending Physician, Genaro Garces MD I agree with the assessment and wa plan of care. Disposition: 08/31/17 18:43 Hospitalization ordered by Chapin Arias for Inpatient Admission. Preliminary diagnosis are Cerebral infarction - Right Temporal Lobe, Altered mental status, unspecified. - Bed requested for Telemetry/MedSurg (Inpatient). - Status is Inpatient Admission. lk1 - Condition is Stable. - Problem is new. - Symptoms are unchanged. UTI on Admission? No NIH Stroke Scale - NIH Stroke Score Date: 08/31/2017 Time: 17:34 Total Score = 11 1a. Level of Consciousness (LOC) - 0(Alert) 1b. Level of Consciousness (LOC) (Year \T\ Age) - 2(Neither) 1c. LOC Commands (Open \T\ Closes Eyes/Party Host) - 1(One) 2. Best Gaze (Lateral Gaze Paresis) - 0(Normal) 3. Visual Field Loss - 0(No visual loss) 4. Facial Palsy - 1(Minor Paralysis) 5a. Left Arm: Motor (10-second hold) - 1(Drift) 5b. Right Arm: Motor (10-second hold) - 1(Drift) 6a. Left Leg: Motor (5-second hold - always test supine) - 1(Drift) 6b. Right Leg: Motor (5-second hold - always test supine) - 2(Drift, some effort against gravity) 7. Limb Ataxia (finger/nose \T\ heel/west - test with eyes open) - 0(Absent) 8. Sensory Loss (pinprick arms/legs/face) - 0(Normal) 9. Best Language: Aphasia (description/naming/reading) - 1(Mild to moderate aphasia) 10. Dysarthria (speech clarity - read or repeat words) - 1(Mild to Moderate) 11. Extinction and Inattention (visual/tactile/auditory/spatial/personal) - 0(No abnormality) Initials: lk1 NIH Stroke Scale - NIH Stroke Score Date: 08/31/2017 Time: 22:00 Total Score = 12 1a. Level of Consciousness (LOC) - 0(Alert) 1b. Level of Consciousness (LOC) (Year \T\ Age) - 2(Neither) 1c. LOC Commands (Open \T\ Closes Eyes/Party Host) - 1(One) 2. Best Gaze (Lateral Gaze Paresis) - 1(Partial gaze palsy) 3. Visual Field Loss - 0(No visual loss) 4. Facial Palsy - 1(Minor Paralysis) 5a. Left Arm: Motor (10-second hold) - 1(Drift) 5b. Right Arm: Motor (10-second hold) - 1(Drift) 6a. Left Leg: Motor (5-second hold - always test supine) - 1(Drift) 6b. Right Leg: Motor (5-second hold - always test supine) - 2(Drift, some effort against gravity) 7. Limb Ataxia (finger/nose \T\ heel/west - test with eyes open) - 0(Absent) 8. Sensory Loss (pinprick arms/legs/face) - 0(Normal) 9. Best Language: Aphasia (description/naming/reading) - 1(Mild to moderate aphasia) 10. Dysarthria (speech clarity - read or repeat words) - 1(Mild to Moderate) 11. Extinction and Inattention (visual/tactile/auditory/spatial/personal) - 0(No abnormality) Initials: lk1 Signatures: Dispatcher [employer] EDMS Josselyn Nugent rg2 Fransico Monzon PA PA jrCasey Eddy RN RN hj Page, Corey, PA PA cp Kluge, Leah, RN RN lk1 Genaro Garces MD MD wa Corrections: (The following items were deleted from the chart) 08/31 18:03 18:00 Chest Single View+RAD.RAD.BRZ ordered. EDMS EDMS 18:14 18:00 Brain Wo Cont+MRI.RAD.BRZ ordered. EDMS EDMS 18:17 18:00 CT-STROKE BRAIN W/O CONTRAST+CT.RAD.BRZ ordered. EDMS EDMS 18:36 18:07 D50W 25 ml IVP once; (0.5 amp) ordered. cp cp 20:50 18:43 Hospitalization Ordered by Chapin Arias MD for Inpatient Admission. rg2 Preliminary diagnosis is Cerebral infarction - Right Temporal Lobe; Altered mental status, unspecified. Bed requested for Telemetry/MedSurg (Inpatient). Status is Inpatient Admission. Condition is Stable. Problem is new. Symptoms are unchanged. UTI on Admission? No. cp 22:04 20:50 08/31/2017 18:43 Hospitalization Ordered by Chapin Arias MD for Inpatient lk1 Admission. Preliminary diagnosis is Cerebral infarction - Right Temporal Lobe; Altered mental status, unspecified. Bed requested for Telemetry/MedSurg (Inpatient). Status is Inpatient Admission. Condition is Stable. Problem is new. Symptoms are unchanged. UTI on Admission? No. rg2
--- NOTE | 2017-08-31 18:44 | ER ---
Nurse's Notes [facility] Name: Apoorva Christie Age: 67 yrs Sex: Female : 1950 Arrival Date: 08/31/2017 Time: 16:53 Bed 30 Private MD: Chapin Arias R Diagnosis: Cerebral infarction-Right Temporal Lobe;Altered mental status, unspecified Presentation: 08/31 16:57 Presenting complaint: Child states: our cousin called and went to see her at home hj around 3:30 pm today, she seemed laying in bed; we coudnt get a response to her, took blood sugar- 74; on triage- A\\T\\O x2 to place and person; was here last month for stroke; states" im cold";. Transition of care: patient was not received from another setting of care. Onset of symptoms was August 31, 2017. Onset of symptoms was August 31, 2017 at 10:30. Initial Sepsis Screen: Does the patient meet any 2 criteria? No. Patient's initial sepsis screen is negative. Does the patient have a suspected source of infection? No. Patient's initial sepsis screen is negative. Care prior to arrival: None. 16:57 Method Of Arrival: Ambulatory hj 16:57 Acuity: AWA 3 hj 17:09 No acute neurological deficit is noted. The patients blood glucose was checked before hj arriving to the hospital and was found to be normal. Triage Assessment: 17:08 The onset of the patients symptoms was August 31, 2017 at 10:30. General: Appears in no hj apparent distress. uncomfortable, Behavior is calm, cooperative, appropriate for age. Pain: Denies pain. Neuro: Reports feeling cold. Stroke Activation: Symptom onset > 6 hours Physician: Stroke Attending; Name: ; Notified At: 17:12; Arrived At: Physician: Chief Stroke Resident; Name: ; Notified At: 17:12; Arrived At: Physician: Stroke Resident; Name: ; Notified At: 17:12; Arrived At: Physician: ED Attending; Name: Dez; Notified At: 17:12; Arrived At: Physician: ED Resident; Name: ADAM; Notified At: 17:12; Arrived At: Historical: - Allergies: 17:07 codeine sulfate; hj - Home Meds: 17:07 amlodipine 10 mg tab [Active]; aspirin 81 mg Oral chew [Active]; carvedilol 6.25 mg hj Oral tab [Active]; lisinopril 40 mg Oral tab [Active]; Novolin N Sub-Q [Active]; atorvastatin 20 mg oral tab 1 tab once daily [Active]; donepezil 5 mg oral tab 1 tab once daily [Active]; Lantus 100 unit/mL Sub-Q soln [Active]; - PMHx: 17:07 brain blockage; Cirrhosis; CVA; Diabetes - IDDM; Hypertension; meningitis; progressive hj tremors; - PSHx: 17:07 Cholecystectomy; Knee surgery; ; Hysterectomy; hj - Immunization history:: Adult Immunizations up to date. - Social history:: Smoking status: Patient/guardian denies using tobacco. Screenin:33 Patient has been NPO before screening. The patient is alert, able to follow commands. lk1 The patient exhibits slurred or garbled speech. The patient is exhibiting difficulty speaking. The patient does not exhibit difficulty understanding words. The patient is able to swallow own secretions with no drooling or need for suction. The patient did not tolerate one teaspoon of water. Drooling, immediate coughing, gurgling, or clearing of the throat was noted. Bedside swallow screening discontinued. Patient kept NPO until cleared by Speech Therapy or Physician. The patient failed the bedside swallow screening. The patient will be kept NPO until cleared by Speech Therapy or Physician. Provider notified of bedside swallow screening results: Sumit DOBBS. 17:42 Abuse screen: Denies threats or abuse. Denies injuries from another. Nutritional lk1 screening: No deficits noted. Tuberculosis screening: No symptoms or risk factors identified. Fall Risk Total Ornelas Fall Scale indicates High Risk Score (45 or more points). Fall prevention measures have been instituted. Side Rails Up X 2 Placed Close to Nursing Station Frequent Obs/Assessments Occuring Family Present and informed to notify staff if the need to leave the bedside As available patient and family educated on Fall Prevention Program and Strategies. Assessment: 17:11 Reassessment: Code Stroke called to ER. iw 17:30 Patient has been NPO before screening. The patient is alert, and able to follow lk1 commands. The patient exhibits slurred or garbled speech. The patient is exhibiting difficulty speaking. The patient does not exhibit difficulty understanding words. The patient is able to swallow own secretions with no drooling or need for suction. The patient did not tolerate one teaspoon of water. Drooling, immediate coughing, gurgling, or clearing of the throat was noted. Bedside swallow screening discontinued. Patient kept NPO until cleared by Speech Therapy or Physician. The patient failed the bedside swallow screening. The patient will be kept NPO until cleared by Speech Therapy or Physician. Provider notified of bedside swallow screening results: Sumit DOBBS. 17:34 T-PA (Activase) Screening: Contraindications: Patient reports onset of signs and lk1 symptoms of stroke greater than 6 hours ago: Yes. General: Appears uncomfortable, Behavior is appropriate for age, anxious, uncooperative. Pain: Denies pain. Neuro: Level of Consciousness is awake, lethargic, Oriented to person, Food Preparation Supervisor are weak bilaterally weaker on right side. Speech is slurred, with expressive aphasia noted, Facial droop on right, Pupils are sluggish. Cardiovascular: Heart tones S1 S2 present Capillary refill is brisk Patient's skin is warm and dry. Respiratory: Airway is patent Respiratory effort is even, unlabored, Respiratory pattern is regular, symmetrical, Breath sounds are clear bilaterally. GI: No signs and/or symptoms were reported involving the gastrointestinal system. : No signs and/or symptoms were reported regarding the genitourinary system. EENT: No signs and/or symptoms were reported regarding the EENT system. Derm: No signs and/or symptoms reported regarding the dermatologic system. Musculoskeletal: No signs and/or symptoms reported regarding the musculoskeletal system. 19:30 Reassessment: Patient and/or family updated on plan of care and expected duration. Pain lk1 level reassessed. Patient is alert, oriented x 3, equal unlabored respirations, skin warm/dry/pink. Patient states symptoms have improved. General: Appears in no apparent distress. Behavior is calm, cooperative, appropriate for age. Neuro: Level of Consciousness is awake, obeys commands, lethargic, Oriented to person, place, Food Preparation Supervisor are weak bilaterally Speech is slurred, with expressive aphasia noted, Facial droop on right. 20:30 Reassessment: No changes from previously documented assessment. Patient and/or family lk1 updated on plan of care and expected duration. Pain level reassessed. Patient is alert, oriented x 3, equal unlabored respirations, skin warm/dry/pink. 22:00 Reassessment: No changes from previously documented assessment. Patient and/or family lk1 updated on plan of care and expected duration. Pain level reassessed. Patient is alert, oriented x 3, equal unlabored respirations, skin warm/dry/pink. Vital Signs: 17:03 BP 166 / 101; Pulse 88; Resp 18; Temp 98.0(O); Pulse Ox 99% on R/A; Weight 84.82 kg; hj Height 5 ft. 7 in. (170.18 cm); 18:30 BP 219 / 98; Pulse 102; Resp 16; Pulse Ox 96% on R/A; lk1 18:50 BP 173 / 96; Pulse 102; Resp 16; Pulse Ox 97% on R/A; lk1 19:30 BP 197 / 66; Pulse 75; Resp 18; Pulse Ox 100% on R/A; Pain 0/10; lk1 20:30 BP 193 / 75; Pulse 79; Resp 16; Pulse Ox 97% on R/A; lk1 17:03 Body Mass Index 29.29 (84.82 kg, 170.18 cm) NIH Stroke Scale Scores: 17:34 NIHSS Score: 11 lk1 22:00 NIHSS Score: 12 lk1 ED Course: 16:53 Patient arrived in ED. mr 16:54 Chapin Arias MD is Private Physician. mr 17:02 Triage completed. hj 17:08 Arm band placed on left wrist. hj 17:10 Angelica Foote, SAMAN is Primary Nurse. lk1 17:15 Sumit Lugo PA is PHCP. cp 17:15 Genaro Garces MD is Attending Physician. cp 17:32 Inserted saline lock: 20 gauge in left antecubital area, using aseptic technique. Blood lk1 collected. 17:39 Ct Stroke Brain Wo Cont In Process Unspecified. EDMS 17:43 Patient moved to MRI via stretcher. ka 17:51 Patient has correct armband on for positive identification. Bed in low position. Call lk1 light in reach. Side rails up X2. Adult w/ patient. 17:54 Brain Wo Cont In Process Unspecified. EDMS 17:55 X-ray completed. Portable x-ray completed in exam room. Patient tolerated procedure ml well. 17:56 Chest Single View In Process Unspecified. EDMS 18:24 MRI completed. Patient tolerated poorly. Patient moved back from MRI. ka 18:42 Chapin Arias MD is Hospitalizing Provider. cp 19:04 Cleaned of incontinence. Linen changed. lk1 19:55 Byrd cath inserted, using sterile technique, 16 Fr., by me, balloon inflated, to lk1 gravity drainage, urine specimen collected. 20:47 First set of blood cultures drawn by me. Missed attempt(s): 22 gauge in left wrist. dh3 Bleeding controlled, band aid applied, catheter tip intact. 21:11 Second set of blood cultures drawn by me. Inserted saline lock: 20 gauge in right dh3 wrist, using aseptic technique. Blood collected. 22:02 No provider procedures requiring assistance completed. Patient admitted, IV remains in lk1 place. Administered Medications: 17:40 Drug: Ativan 1 mg Route: IVP; Site: left antecubital; lk1 17:50 Follow up: Response: No adverse reaction; Marked relief of symptoms lk1 18:28 Drug: foLIC Acid 1 mg Route: IVPB; Site: left antecubital; lk1 18:45 Follow up: Response: No adverse reaction; IV Status: Completed infusion lk1 18:36 CANCELLED (Physician Discretion): D50W 25 ml IVP once; (0.5 amp) jessica Point of Care Testing: Blood Glucose: 17:08 Blood Glucose: 83 mg/dL; hj 18:37 Blood Glucose: 141 mg/dL; lk1 Ranges: Outcome: 18:43 Decision to Hospitalize by Provider. cp 22:01 Admitted to Med/surg accompanied by tech, family with patient, via stretcher, room 431, lk1 with chart, Report called to RN 22:01 Condition: good 22:01 Discharge instructions given to patient, family, Instructed on the need for admit, Demonstrated understanding of instructions. 22:04 Patient left the ED. lk1 NIH Stroke Scale - NIH Stroke Score Date: 08/31/2017 Time: 17:34 Total Score = 11 1a. Level of Consciousness (LOC) - 0(Alert) 1b. Level of Consciousness (LOC) (Year \\T\\ Age) - 2(Neither) 1c. LOC Commands (Open \\T\\ Closes Eyes/Steam Bone Press Tender) - 1(One) 2. Best Gaze (Lateral Gaze Paresis) - 0(Normal) 3. Visual Field Loss - 0(No visual loss) 4. Facial Palsy - 1(Minor Paralysis) 5a. Left Arm: Motor (10-second hold) - 1(Drift) 5b. Right Arm: Motor (10-second hold) - 1(Drift) 6a. Left Leg: Motor (5-second hold - always test supine) - 1(Drift) 6b. Right Leg: Motor (5-second hold - always test supine) - 2(Drift, some effort against gravity) 7. Limb Ataxia (finger/nose \\T\\ heel/west - test with eyes open) - 0(Absent) 8. Sensory Loss (pinprick arms/legs/face) - 0(Normal) 9. Best Language: Aphasia (description/naming/reading) - 1(Mild to moderate aphasia) 10. Dysarthria (speech clarity - read or repeat words) - 1(Mild to Moderate) 11. Extinction and Inattention (visual/tactile/auditory/spatial/personal) - 0(No abnormality) Initials: lk1 NIH Stroke Scale - NIH Stroke Score Date: 08/31/2017 Time: 22:00 Total Score = 12 1a. Level of Consciousness (LOC) - 0(Alert) 1b. Level of Consciousness (LOC) (Year \\T\\ Age) - 2(Neither) 1c. LOC Commands (Open \\T\\ Closes Eyes/Steam Bone Press Tender) - 1(One) 2. Best Gaze (Lateral Gaze Paresis) - 1(Partial gaze palsy) 3. Visual Field Loss - 0(No visual loss) 4. Facial Palsy - 1(Minor Paralysis) 5a. Left Arm: Motor (10-second hold) - 1(Drift) 5b. Right Arm: Motor (10-second hold) - 1(Drift) 6a. Left Leg: Motor (5-second hold - always test supine) - 1(Drift) 6b. Right Leg: Motor (5-second hold - always test supine) - 2(Drift, some effort against gravity) 7. Limb Ataxia (finger/nose \\T\\ heel/west - test with eyes open) - 0(Absent) 8. Sensory Loss (pinprick arms/legs/face) - 0(Normal) 9. Best Language: Aphasia (description/naming/reading) - 1(Mild to moderate aphasia) 10. Dysarthria (speech clarity - read or repeat words) - 1(Mild to Moderate) 11. Extinction and Inattention (visual/tactile/auditory/spatial/personal) - 0(No abnormality) Initials: lk1 Signatures: Dispatcher [employer] Radha Macias Irene, RN RN Laurie Taylor Henry, RN RN hj Page, Corey, PA PA cp Kluge, Leah, RN RN lk1 Hilda Castillo Deanna [facility]
--- NOTE | 2017-08-31 19:04 | RAD REPORT ---
EXAM DESCRIPTION: MRI - Brain Wo Cont - 08/31/2017 6:14 pm CLINICAL HISTORY: Abnormal head CT, possible CVA COMPARISON: CT head August 31, CT head August 01 TECHNIQUE: Sagittal T1-weighted images were obtained along with axial PD, heavily T2-weighted and T2 -FLAIR images. Axial DWI and ADC mapping sequences were also obtained along with coronal heavily T2-w eighted images. FINDINGS: No intracranial hemorrhage, mass or acute infarction. There is no edema or shift of midlin e structures. Hyperintense T2/IR signal is present in the medial right temporal lobe matching the are a of diminished attenuation on CT imaging. This is believed be old ischemic injury. No measurable mas s effect. Malignant process or area of infection not suspected. Lowry matter - white matter interfaces otherwise preserved elsewhere in the brain. Patient has mild chronic ischemic change and mild atroph y. Ventricles are in proportion. Signal voids are seen as a normal finding in the major intracranial vessels. No globe or orbital content acute finding. No sella or supra sella abnormality. Mastoid air cells and paranasal sinuses are clear. IMPRESSION: No acute infarction changes are present. Signal abnormality in the medial right temporal lobe is an old ischemic process. Underlying mild atrophy and chronic ischemic change with no acute intracranial finding identifiable.
--- NOTE | 2017-08-31 19:57 | RAD REPORT ---
EXAM DESCRIPTION: RAD - Chest Single View - 08/31/2017 5:57 pm CLINICAL HISTORY: AMS, shortness of breath COMPARISON: August 01 TECHNIQUE: AP portable chest image was obtained 1732 hours . FINDINGS: Lung volumes are low. No diffuse pulmonary edema or volume overload. Interstitial markings and vasculature accentuated by the portable technique and shallow inspiration. Heart size is normal. Trachea is midline. No measurable pleural effusion and no pneumothorax. No gross bony abnormality se en. No acute aortic findings suspected. IMPRESSION: No peripheral infiltrate or mass. Vasculature and lung markings are accentuated by shallow inspiration. Significant failure or volume o verload are doubtful.
[2017-08-31 20:32] LABS: Urine Blood 2+ (NEG); Urine Glucose TRACE (NEG); Urine Protein 3+ (NEG); Urine Specific Gravity 1.025 (1.005-1.030); Urine pH 6.5 (5.0-7.0)
[2017-08-31 20:38] LABS: Urine Bacteria <20 /HPF (<20); Urine Culture Reflex Order NOT NEEDED
[2017-08-31] MEDS: INSULIN -REGULAR HUMAN 50 UNIT/0.5 ML ML SQ SCH (21:00)
[2017-08-31 21:17] LABS: Barbiturates NEGATIVE; Benzodiazepines NEGATIVE; Cocaine NEGATIVE; METHAMPHETAM NEGATIVE; Opiates NEGATIVE; Phencyclidine NEGATIVE; THC Cannibis NEGATIVE
[2017-08-31] MEDS: NA CHLORIDE 0.9% 1,000 ML IV SCH (22:57)
--- NOTE | 2017-09-01 06:45 | EKG ---
Test Date: 2017-08-31 Test Time: 17:01:30 Sole Layer: ZAC MEASUREMENT RESULTS: Intervals: Rate: 90 DE: 140 QRSD: 74 QT: 370 QTc: 452 [place]: P: 44 DE: 140 QRS: -30 T: 87 INTERPRETIVE STATEMENTS: Normal sinus rhythm Left axis deviation Cannot rule out Anterior infarct, age undetermined T wave abnormality, consider lateral ischemia Abnormal ECG Compared to ECG 08/01/2017 07:34:19 Left-axis deviation now present questionable myocardial infarct finding now present Electronically Signed On 09-01-17 06:44:42 CDT by Tod Benjamin
[2017-09-01 07:11] LABS: CKMB Creatine Kinase MB 0.9 ng/ml (0.3-4.0)
[2017-09-01] MEDS: INSULIN -REGULAR HUMAN 50 UNIT/0.5 ML ML SQ SCH ×3 (07:30→17:01)
[2017-09-01] MEDS ORDERED: GLUCAGON 1 MG/VIAL IM PRN (08:47)
[2017-09-01] MEDS ORDERED: D50W 25 GM/50 ML SYRINGE IV PRN (08:47)
[2017-09-01] MEDS ORDERED: CLOPIDOGREL 75 MG TABLET PO SCH (09:00)
[2017-09-01] MEDS ORDERED: ENOXAPARIN 40 MG/0.4 ML SQ SCH (09:00)
[2017-09-01] MEDS ORDERED: LISINOPRIL 20 MG TAB PO SCH (09:00)
[2017-09-01] MEDS ORDERED: ATORVASTATIN 20 MG TAB PO SCH (09:00)
[2017-09-01] MEDS ORDERED: AMLODIPINE 5 MG TAB PO SCH (09:00)
[2017-09-01] MEDS ORDERED: CARVEDILOL 6.25 MG TAB PO SCH (09:00)
[2017-09-01] MEDS ORDERED: ASPIRIN EC 81 MG TAB PO SCH (09:00)
[2017-09-01] MEDS: NA CHLORIDE 0.9% 1,000 ML IV SCH (10:02)
[2017-09-01] MEDS ORDERED: DONEPEZIL HCL 5 MG TAB PO SCH (21:00)
--- NOTE | 2017-09-01 23:56 | CON ---
Reason For Consultation: Consultation called because of possible new stroke. History Of Present Illness: Ms. Christie is a 67-year-old patient with multiple stroke risk factors including hypertension, diabetes, dyslipidemia, and a prior stroke involving the right tempo ral lobe and adjacent structures. She has had deficits of left-sided weakness, incoordination, inclu ding face, arm, and leg deficits. She had been doing fairly well, back to her baseline level of func tioning when around 3 p.m. yesterday she developed what was felt to be worsening weakness on the left side and felt somewhat confused and had cold feeling to her left side. She was brought into [facility] where imaging included a brain CT scan, which identified a 3 cm area of diminished densi ty in the right temporal lobe suspicious for an acute to subacute infarct. However, subsequent brain MRI showed the area to be chronic old stroke without any acute findings in the right temporal lobe. It should be noted that the patient's symptoms did improve back to her baseline prior to her getting up to the floor, perhaps lasted less than 12 hours. Since being admitted to the floor, she denies a ny worsening symptoms. Past Medical History: As indicated above. Cirrhosis of the liver and meningitis. Allergies: CODEINE. Medications At Home: Amlodipine 10 mg daily, aspirin 81 mg daily, carvedilol 6.25 mg daily, lisinopr il 10 mg daily, NovoLog insulin subcutaneously daily, atorvastatin 20 mg daily, donepezil 5 mg daily, Lantus insulin daily. Past Surgical History: Cholecystectomy, knee surgery, , hysterectomy. Family History: Noncontributory. Review of Systems: Other than indicated above. No recent fevers or chills, nausea, vomiting, myalgias, arthralgias, renee h, weight change, headache. No psychiatric complaints. Physical Examination: Vital Signs: Blood pressure 140, ranging up to 153/61-63, respiratory rate 18, temperature 98.5, and pulse 68, oxygen saturation 97% on room air, weight 187 pounds. Height 5 feet 7 inches. General: Ms. Christie is resting comfortably in bed finishing her lunch. HEENT: She is normocephalic, atraumatic. Sclerae anicteric. Oropharynx is moist and pink. Neck: Supple. Chest: Clear. Heart: Regular. Extremities: Show no edema or cyanosis. Neurologic: She is alert and oriented to situation, place, and person. She has no expressive or rec eptive aphasias. Her words are mildly slurred. In terms of cranial nerves she has a mild decrease i n the left nasolabial fold, but has good excursions and motor strength on the left side 4+/5, compare d to the right side, 5/5 in the upper and lower extremities proximally and distally. She has a decre ase to light touch temperature on the left side compared to the right side. Reflexes are slightly in creased on the left compared to the right side. Gait: She tends to fall towards the left. She has poor coordination on the left upper and lower ext remities. Laboratory Studies: Have been reviewed. White blood cell count slightly elevated at 11.3. Chemistr ies do show blood glucose ranged from 99 up to 248. Her triglycerides are 236, total cholesterol 229 , LDL cholesterol 146, HDL 36, cholesterol to HDL ratio 6.36. Her urinalysis shows 10-20 red blood cells, 5-10 epithelial cells, 3+ protein, 3+ blood, and urine dr ug screen is negative. Please note, NIH Stroke Scale is 11. Assessment: Ms. Christie is a 67-year-old patient with a chronic stroke with no evidence of acute st roke. It is unclear what has produced the patient's symptoms. However, the possibility of a localiz ation-related complex partial seizure should be considered given that the patient's symptoms stemmed out and resolved over fairly short time, and she had a recent, however, chronic now stroke. Plan: She may be discharged home and follow up with Dr. Conti in clinic, may have outpatient EEG monitoring to characterize any potential localization-related seizures, and the patient should mainta in a diary. At this point, I will not start antiepileptic medications, but may consider Keppra 250 m g twice daily. Also continue with aspirin and Plavix. Continue high-dose statin. Continue with agg ressive management of insulin-dependent diabetes mellitus and hypertension, and again the patient galo l be discharged home today. BETO/TASHA Voice ID: [id number] Report ID: [id number]
--- NOTE | 2017-09-02 01:08 | HP ---
Date of Admission: 08/31/2017 Chief Complaint: Confusional state. History Of Present Illness: A 67-year-old female was given more insulin by her physician in [place]. She was found to be confused and lethargic by the family. She was brought to the ER. The patient had workup and initially CAT scan of the head showed possible stroke. However, the MRI did not show any evidence of stroke. The patient's blood sugar, however, was 74. She spontaneously got better. She is fully alert and oriented today without any focal deficits. Past Medical History: Positive for type 2 diabetes, requiring large amount of insulin, hypertension, hyperlipidemia, recent stroke. Family History: Positive for diabetes, hypertension, hyperlipidemia. Personal History: Allergic to codeine. Home Medicines: Please refer to the chart. Review of Systems: No chest pain, shortness of breath. Physical Examination: General: Revealed 67-year-old female fully alert and oriented today. She wants to go home as she fe els normal. HEENT: Negative. Neck: Supple. JVD negative. Chest: Clear. Heart: Regular. Abdomen: Soft. Extremities: No edema. Neurological: No deficits. Laboratory: Normal MRI of the head, no evidence of fresh stroke. Assessment: 1.Probable hypoglycemia. 2.Type 2 diabetes. 3.Hypertension. 4.Hyperlipidemia. 5.Recent stroke. Plan: The patient is not seen by Neurology Service yet. After that is done, if there is no evidence of any neurological issues, she will be discharged. She will be advised to contact her endocrine do ctor for her insulin requirements as she is having hypoglycemic reactions. BENNETT/TASHA Voice ID: [id number]
== END 2017-09-01 18:25 | disposition home or self-care (01) ==
LOC: ER 16:52 → ERHOLD 19:26 → INTOOBSV 19:26 → 4TH 21:17
PROVIDERS: ADMIT Internal Medicine; ATTEND Internal Medicine
DX: R41.0 Disorientation, unspecified (principal); E11.9 Type 2 diabetes mellitus without complications; I10 Essential (primary) hypertension; E78.5 Hyperlipidemia, unspecified; Z86.73 Personal history of transient ischemic attack (TIA), and cerebral infarction without residual deficits
CPT/HCPCS: 36415; 51702; 70450; 70551; 71045; 80048; 80061; 80307 ×9; 82550; 82553; 82962 ×7; 84484; 85025; 85610; 85730; 87040 ×2; 93005; 94760 ×2; 96365; 96375; 99285; G0378 ×2; J1650; J7030 ×2; 81003; 81015

== ENCOUNTER 2018-01-01 11:02 | Inpatient (IN) | payer OTHER ==
--- OUTSIDE RECORDS SUMMARY | 2018-01-01 11:04 | XMS REPORT | Clinical Summary ---
:1950 Author Organization [facility] Address [address] [place] [address] Phone Care Team Providers Name Role Phone [...] mouth Active (ZOCOR) 40 MG nightly. tablet insulin lispro Inject 20 Units 10 mL [...] unit/mL injection (three) times daily before meals. clopidogrel Take 1 tablet (75 90 tablet 0 07/14/2017 10/13/19 (PLAVIX) 75 mg mg total) by mouth 18 tablet daily for 90 days. Active Problems Problem Noted Date Diabetes mellitus (HCC) 07/12/2017 Hypertension 07/12/2017 Pneumonia 07/12/2017 Volume overload 07/12/2017 Acute respiratory failure with hypoxia ([facility]) 07/12/2017 Acute ischemic left MCA stroke ([facility]) 07/08/2017 Encounters Date Type Specialty Care Team Description 07/08/2017 - Hospital Encounter Intensive Care Moe Vo Acute ischemic left 07/13/2017 MD Naomy MCA stroke Gennaro Orellana ([facility]);Received MD Fransisco tissue plasminogen activator (t-PA) less than 24 hours prior to arrival;Acute respiratory failure with hypoxia ([facility]) 07/08/2017 Anesthesia Event Shilo Valiente MD 07/08/2017 Procedure Pass 07/08/2017 Surgery Virtual, Surgeon PROCEDURE DONE OUTSIDE OR after 12/31/2016 Social History Tobacco Use Types Packs/Day Years [...] (190 lb 4.1 oz) 07/08/2017 6:27 PM COREMAKER APPRENTICE Height 165.1 cm (5' 5") 07/08/2017 6:27 PM COREMAKER APPRENTICE Body Mass Index 31.66 07/08/2017 6:27 PM COREMAKER APPRENTICE Plan of Treatment Not on file Procedures Procedure Name Priority Date/Time Associated Diagnosis Comments PROCEDURE DONE OUTSIDE 07/08/2017 2:02 PM COREMAKER APPRENTICE OR after 12/31/2016 Results RHYTHM STRIP - SCAN (07/17/2017 11:00 AM)POC-Glucose meter (07/13/2017 12:19 PM) Only the most recent of21 resultswithin the time period is included. Component Value Ref Range POC-Glucose Meter 302 (H)Comment: Notified SAMAN HERNANDEZ/TESTED AT [facility] 6720 70 - 110 mg/dL [place] [address] Specimen Performing Laboratory Blood [address] [address] Calcium, Ionized (07/13/2017 3:34 AM) Component Value Ref Range Calcium, Ion 1.11 (L) 1.12 - 1.27 mmol/L pH, Blood 7.47 Specimen Performing Laboratory Blood - Line, Venous [address] [address] CBC with platelet count + automated diff [...] Specimen Performing Laboratory Blood - Line, Venous [address] [address] CBC with platelet count + automated diff (07/13/2017 3:34 AM)Only the most recent of6 resultswithin the time period is included. Specimen Performing Laboratory Blood Narrative The following orders were created for panel order CBC with platelet count + automated diff. Procedure Abnormality Status --------- ------ CBC with platelet count ...[[id number]]AbnormalFinal result Please view results for these tests on the individual orders. Phosphorus (07/13/2017 3:34 AM) Component Value Ref Range Phosphorus 3.2 2.3 - 4.7 mg/dL Specimen Performing Laboratory Blood - Line, Venous [address] [address] Magnesium (07/13/2017 3:34 AM) Component Value Ref Range Magnesium 1.3 (L) 1.6 - 2.6 mg/dL Specimen Performing Laboratory Blood - Line, Venous [address] [address] Basic Metabolic Panel (07/13/2017 3:34 AM)Only the [...] Specimen Performing Laboratory Blood - Line, Venous [address] [address] XR chest 1 view portable / bedside [...] MD Report Verified Date/Time:07/12/2017 09:30:37 Reading Location: [facility] Radiology Reading Room Procedure Note Interface, [...] Report Verified Date/Time: 07/12/2017 09:30:37 Reading Location: [facility] Radiology Reading Room Vitamin B12 (07/12/2017 4:50 AM) Component Value Ref Range Vitamin B12 318 213 - 816 pg/mL Specimen Performing Laboratory Blood [address] [address] Blood gas, arterial (07/11/2017 5:01 AM)Only the [...] Performing Laboratory Blood, Arterial - Line, Arterial [address] [address] Troponin I (07/10/2017 11:56 PM)Only the most recent of2 resultswithin the time period is included. Component Value Ref Range Troponin I 0.17 (H) 0.00 - 0.03 ng/mL Specimen Performing Laboratory Blood - Line, Arterial [address] [address] Narrative Troponin I (TnI) levels must be [...] Specimen Performing Laboratory Blood - Line, Arterial [address] [address] Narrative CK-MB Reference Range: <6.7Normal 6.7-10.0Borderline >10.0 Abnormal ECG 12 lead (07/10/2017 2:10 PM)Only the most recent of2 resultswithin the time period is included. Specimen Performing Laboratory GE MUSE Narrative Ventricular Rate 75 BPM Atrial Rate 75 BPM P-R Interval 150 ms QRS Duration 74 ms Q-T Interval 382 ms QTC Calculation(Bazett) 426 ms P Ary 48 degrees R Ary -3 degrees T Ary 168 degrees Normal sinus rhythm ST & [...] 382 ms QTC Calculation(Bazett) 426 ms P Ary 48 degrees R Ary -3 degrees T Ary 168 degrees Normal sinus rhythm ST & T wave abnormality, consider lateral ischemia Abnormal ECG When compared with ECG of 10-JUL-2017 07:11, QT has shortened Confirmed by MD MAYUR, MICHAEL Escalera ([id number]) on 07/11/2017 7:04:48 AM Sputum Culture + Gram Stain (07/10/2017 12:56 PM) Component Value Ref Range Result Result 4+ Haemophilus influenzae (A)Comment: Beta-lactamase negative Gram Stain Result 4+ WBCs Gram Stain Result 0-5 epithelial cells Gram Stain Result <1+ gram positive rods Gram Stain Result 2+ gram positive cocci in pairs Specimen Performing Laboratory Sputum - Expectorated [address] [address] Narrative 4+ Normal respiratory lor present ECHOCARDIOGRAM REPORT - SCAN (07/10/2017 11:50 AM)B-type Natriuretic Factor (BNP ) (07/10/2017 11:29 AM) Component Value Ref Range BNP 524 (H) 0 - 100 pg/mL Specimen Performing Laboratory Blood - Line, Arterial [address] [address] Lactic acid, arterial, whole blood (07/10/2017 4:40 AM) Component Value Ref Range Lactate, Art 0.8 0.5 - 2.2 mmol/L Specimen Performing Laboratory Blood, Arterial [address] [address] Narrative Effective 09/02/2015: Units/Reference Range Change New: [...] DIALYSIS PATIENTS. Specimen Performing Laboratory Blood [facility] [address] [address] [address] brain without IV contrast (07/10/2017 2:55 [...] MD Report Verified Date/Time:07/10/2017 03:09:32 Reading Location: [address] Consult Reading Room Procedure Note Interface, External [...] Report Verified Date/Time: 07/10/2017 03:09:32 Reading Location: [facility] B1 C013X Ortho Consult Reading Room Urinalysis w/Microscopic (07/09/2017 7:59 PM) Component Value Ref Range Color, UA Light Yellow Clarity, UA Clear Specific [place], UA 1.009 1.001 - 1.035 pH, UA [...] Specimen Source Specimen Performing [place] [address] 2D Echo W/Doppler(CW/PW/Color) (07/09/2017 12:30 PM) Component Value Ref Range Ejection Fraction Specimen Performing Laboratory [facility] ECHO HEARTLAB MKCKESSON CPACS Narrative Transthoracic Echocardiography Report (TTE) Demographics Patient NameKYLEE BEAVERS Date of Study07/09/2017 BILLY Gender Female Visit [id number] Race Unknown [id number] Number Date of 1950 ReferringRahul Tavo Physician Tavo Rosa Age 67 year(s) SonographerCharis Cordova Disabilities Caregiver Devon Agudelo Interpreting Anatoly Melendez Physician Procedure [...] Transthoracic Echocardiography Report (TTE) Demographics Patient Name NIMESH KYLEE Date of Study 07/09/2017 BILLY FLORES [id number] Gender Female Visit Number [id number] Race Unknown Room Number 7519 Number Date of 1950 Referring Moe Vo Physician Tavo Rosa Age 67 year(s) Die Engraver Charis Cordova Disabilities Caregiver Devon Agudelo Interpreting Physician DAVID Perez Procedure [...] MD Report Verified Date/Time:07/09/2017 07:37:39 Reading Location: [address] Neuro Reading Room Procedure Note Interface, [...] Report Verified Date/Time: 07/09/2017 07:37:39 Reading Location: [facility] C013V Neuro Reading Room /Free T4 If Indicated (07/09/2017 3:49 AM) Component Value Ref Range TSH 0.60 0.35 - 4.94 uIU/mL Specimen Performing Laboratory Blood [address] [address] Hemoglobin A1c (07/09/2017 3:49 AM) Component Value Ref Range Hemoglobin A1C 12.4 (H) 4.3 - 6.1 % Specimen Performing Laboratory Blood [facility] [address] [place] [address] Lipid panel (07/09/2017 3:49 AM) Component Value Ref Range Triglycerides 300 mg/dL Cholesterol 204 mg/dL HDL 33 mg/dL LDL Calculated 111 mg/dL Specimen Performing Laboratory Blood [address] [address] Narrative Triglyceride Reference Range: Low Risk <150 [id number] High Risk 200-499 Very High Risk>=500 Cholesterol Reference Range: Low Risk <200 Ddxdlmtzgw360-018 High Risk>240 HDL Cholesterol Reference Range: Low Risk >=60 High Risk <40 LDL Cholesterol Reference Range: Optimal<100 Near Elbkaae449-757 Ibddzijdus312-020 Pcka348-796 Very High >=190 Prothrombin time/INR (07/08/2017 10:53 PM) Component Value Ref Range Protime 14.2 11.7 - 14.7 seconds INR 1.1 <=5.9 Specimen Performing Laboratory Blood [address] [address] Narrative RECOMMENDED COUMADIN/WARFARIN INR THERAPY RANGES STANDARD [...] 55 U/L Specimen Performing [place] [address] [place] Common Carotid Or Innominate w/Extracranial (07/08/2017 [...] femoral artery x1 MATERIALS EMPLOYED: 1. 8 Cuban short sheath 2. 5 Cuban 125cm diagnostic catheter 3. Bentson guidewire 4. Terumo 0.035 LT glidewire 5. Flowgate 8f Balloon Guide Catheter 8. 8 Cuban Angioseal device INDICATIONS: The patient is a 67-year-old female with history of hypertension, diabetes and prior stroke who presented with acute onset aphasia in her hometown of [place] around 11:00 AM. She was evaluated and transferred to [facility] for further evaluation treatment. On [...] the puncture site was confirmed, a 8 Cuban short sheath was inserted over a ImmunGene wire and was maintained on heparinized saline flush throughout the remainder of the procedure. Using coaxial technique, a preflushed 5 Cuban 125cm diagnostic glide catheter on constant heparinized saline flush was placed through a pre-flushed and pre-prepped 8 Cuban Flowgate balloon Guide catheter. The two catheters [...] removed and hemostasis achieved with an 8 Cuban Angioseal and manual compression. The patient tolerated [...] atherosclerotic disease with superimposed layering of thrombus. Rpwe-sxjcd-fcpchjbe thrombolysis with Aggrastat infusion, there is reduced [...] MD Report Verified Date/Time:07/08/2017 18:24:25 Reading Location: [place] [address] Neuro Angio Reading Room Procedure Note Interface, [...] femoral artery x1 MATERIALS EMPLOYED: 1. 8 Cuban short sheath 2. 5 Cuban 125cm diagnostic catheter 3. Bentson guidewire 4. Terumo 0.035 LT glidewire 5. Flowgate 8f Balloon Guide Catheter 8. 8 Cuban Angioseal device INDICATIONS: The patient is a 67-year-old female with history of hypertension, diabetes and prior stroke who presented with acute onset aphasia in her hometown of [place] around 11:00 AM. She was evaluated and transferred to [facility] for further evaluation treatment. On [...] the puncture site was confirmed, a 8 Cuban short sheath was inserted over a Bentson wire and was maintained on heparinized saline flush throughout the remainder of the procedure. Using coaxial technique, a preflushed 5 Cuban 125cm diagnostic glide catheter on constant heparinized saline flush was placed through a pre-flushed and pre-prepped 8 Cuban Flowgate balloon Guide catheter. The two catheters [...] removed and hemostasis achieved with an 8 Cuban Angioseal and manual compression. The patient tolerated [...] atherosclerotic disease with superimposed layering of thrombus. Ksxf-gweri-jaxzefqt thrombolysis with Aggrastat infusion, there is reduced [...] Report Verified Date/Time: 07/08/2017 18:24:25 Reading Location: [facility] Y018 Neuro Angio Reading Room brain/stroke test design (07/08/2017 3:00 PM) Specimen Performing Laboratory [employer] Narrative FINAL REPORT CT Head without contrast [...] MD Report Verified Date/Time:07/08/2017 14:24:44 Reading Location: [facility] B1 C013V Neuro Reading Room Procedure Note Interface, External Ris In - 07/08/2017 3:02 PM COREMAKER APPRENTICE FINAL REPORT CT Head without contrast CLINICAL [...] Report Verified Date/Time: 07/08/2017 14:24:44 Reading Location: [address] Neuro Reading Room carotid (07/08/2017 3:00 [...] FINDINGS: There is no evidence for a [place] first order branch vessel occlusion. [...] MD Report Verified Date/Time:07/08/2017 15:00:43 Reading Location: [address] Neuro Reading Room Procedure Note Interface, [...] FINDINGS: There is no evidence for a [place] first order branch vessel occlusion. [...] Report Verified Date/Time: 07/08/2017 15:00:43 Reading Location: [address] Neuro Reading Room brain cerebral perfusion analysis (07/08/2017 3:00 PM) Specimen Performing Laboratory [employer] Narrative FINAL REPORT CLINICAL HISTORY: Stroke TECHNIQUE: [...] FINDINGS: There is no evidence for a [place] first order branch vessel occlusion. [...] MD Report Verified Date/Time:07/08/2017 15:00:43 Reading Location: [address] Neuro Reading Room Procedure Note Interface, External Ris In - 07/08/2017 3:03 PM COREMAKER APPRENTICE FINAL REPORT CLINICAL HISTORY: Stroke TECHNIQUE: Contiguous [...] FINDINGS: There is no evidence for a [place] first order branch vessel occlusion. [...] Report Verified Date/Time: 07/08/2017 15:00:43 Reading Location: [address] Neuro Reading Room brain (07/08/2017 3:00 PM) Specimen Performing Laboratory [employer] Narrative FINAL REPORT CLINICAL HISTORY: Stroke TECHNIQUE: [...] FINDINGS: There is no evidence for a [place] first order branch vessel occlusion. [...] MD Report Verified Date/Time:07/08/2017 15:00:43 Reading Location: [address] Neuro Reading Room Procedure Note Interface, [...] FINDINGS: There is no evidence for a [place] first order branch vessel occlusion. [...] Report Verified Date/Time: 07/08/2017 15:00:43 Reading Location: [address] Neuro Reading Room after 12/31/2016
--- OUTSIDE RECORDS SUMMARY | 2018-01-01 11:05 | XMS REPORT ---
:1950 [facility] [address] [place] [address] [address]. [address] [place] [address] Care Team Providers Name Role Phone VALENTÍN [...] Range Comments CULTURE (BEAKER) (test 4+ Haemophilus yjlr=2532) influenzaeBeta-lactamase negative GRAM STAIN RESULT 4+ WBCs (BEAKER) (test zhiq=3069) GRAM STAIN RESULT 0-5 epithelial cells (BEAKER) (test plrg=523398) GRAM STAIN RESULT <1+ gram positive rods (BEAKER) (test tyqs=897682) GRAM STAIN RESULT 2+ gram positive cocci (BEAKER) (test in pairs qkym=872693) 4+ Normal respiratory lor presentPOCT-GLUCOSE [id number] 12:42:00 Test Item Value Reference Range Comments POC-GLUCOSE METER (BEAKER) 302 mg/dL 70-110 Notified SMAAN HERNANDEZ/TESTED AT [facility] (test figc=0520) [address] [place] [address] POCT-GLUCOSE [id number] 07:51:00 Test Item Value Reference Range Comments POC-GLUCOSE METER (BEAKER) 264 mg/dL 70-110 TESTED AT [address] (test sjcy=5688) [facility] [address] CALCIUM, [id number] 05:24:00 Test Item Value Reference Range Comments CALCIUM IONIZED (BEAKER) (test vmri=453) 1.11 mmol/L 1.12-1.27 PH, BLOOD (BEAKER) (test llgg=5938) 7.47 [id number] 04:43:00 Test Item Value Reference Range Comments PHOSPHORUS (BEAKER) (test izuz=380) 3.2 mg/dL 2.3-4.7 [id number] 04:43:00 Test Item Value Reference Range Comments MAGNESIUM (BEAKER) (test npsa=844) 1.3 mg/dL 1.6-2.6 BASIC METABOLIC [id number] 04:43:00 Test Item Value Reference Range Comments SODIUM (BEAKER) (test 137 meq/L 136-145 egyq=262) POTASSIUM (BEAKER) (test 3.4 meq/L 3.5-5.1 zbhb=060) CHLORIDE (BEAKER) (test 103 meq/L 98-107 qyfk=870) CO2 (BEAKER) (test 25 meq/L 22-29 yyru=909) BLOOD UREA NITROGEN 22 mg/dL 7-21 (BEAKER) (test dpwi=896) CREATININE (BEAKER) (test 0.74 mg/dL 0.57-1.25 bsdl=438) GLUCOSE RANDOM (BEAKER) 237 mg/dL 70-105 (test njhb=505) CALCIUM (BEAKER) (test 9.0 mg/dL 8.4-10.2 hipv=261) EGFR (BEAKER) (test 79 mL/min/1.73 sq m ESTIMATED GFR IS NOT azzi=0668) ACCURATE CREATININE CLEARANCE IN PREDICTING GLOMERULAR FILTRATION RATE. ESTIMATED GFR IS NOT APPLICABLE FOR DIALYSIS PATIENTS. CBC W/PLT COUNT & AUTO [id number] 04:05:00 Test Item Value Reference Range Comments WHITE BLOOD CELL COUNT (BEAKER) (test vkhy=626) 8.1 K/ L 3.5-10.5 RED BLOOD CELL COUNT (BEAKER) (test vjfb=192) 3.43 M/ L 3.93-5.22 HEMOGLOBIN (BEAKER) (test noyy=743) 10.9 GM/DL 11.2-15.7 HEMATOCRIT (BEAKER) (test dsjr=086) 32.2 % 34.1-44.9 MEAN CORPUSCULAR VOLUME (BEAKER) (test bxjl=000) 93.9 fL 79.4-94.8 MEAN CORPUSCULAR HEMOGLOBIN (BEAKER) (test 31.8 pg 25.6-32.2 gqzt=695) MEAN CORPUSCULAR HEMOGLOBIN CONC (BEAKER) (test 33.9 GM/DL 32.2-35.5 bvsm=835) RED CELL DISTRIBUTION WIDTH (BEAKER) (test 13.2 % 11.7-14.4 xoxv=857) PLATELET COUNT (BEAKER) (test ygpf=056) 225 K/CU MM 150-450 MEAN PLATELET VOLUME (BEAKER) (test eaum=552) 12.9 fL 9.4-12.3 NUCLEATED RED BLOOD CELLS (BEAKER) (test 0 /100 WBC 0-0 yssj=743) NEUTROPHILS RELATIVE PERCENT (BEAKER) (test 60 % drcx=483) LYMPHOCYTES RELATIVE PERCENT (BEAKER) (test 26 % ttzs=951) MONOCYTES RELATIVE PERCENT (BEAKER) (test 8 % whjz=466) EOSINOPHILS RELATIVE PERCENT (BEAKER) (test 6 % zjoj=158) BASOPHILS RELATIVE PERCENT (BEAKER) (test 0 % mfuy=279) NEUTROPHILS ABSOLUTE COUNT (BEAKER) (test 4.83 K/ L 1.56-6.13 svab=529) LYMPHOCYTES ABSOLUTE COUNT (BEAKER) (test 2.09 K/ L 1.18-3.74 gvxb=825) MONOCYTES ABSOLUTE COUNT (BEAKER) (test 0.66 K/ L 0.24-0.36 mesa=273) EOSINOPHILS ABSOLUTE COUNT (BEAKER) (test 0.48 K/ L 0.04-0.36 grae=906) BASOPHILS ABSOLUTE COUNT (BEAKER) (test 0.03 K/ L 0.01-0.08 igrx=288) IMMATURE GRANULOCYTES-RELATIVE PERCENT (BEAKER) 0 % 0-1 (test lrto=6662) POCT-GLUCOSE [id number] 21:31:00 Test Item Value Reference Range Comments POC-GLUCOSE METER (BEAKER) 186 mg/dL 70-110 TESTED AT [address] (test xxcz=8237) [facility] [address] POCT-GLUCOSE [id number] 18:45:00 Test Item Value Reference Range Comments POC-GLUCOSE METER (BEAKER) 215 mg/dL 70-110 TESTED AT [address] (test nvcd=5733) [facility] [address] POCT-GLUCOSE [id number] 12:34:00 Test Item Value Reference Range Comments POC-GLUCOSE METER (BEAKER) 428 mg/dL 70-110 Notified RN MD/TESTED AT [facility] (test prby=9402) [address] [facility] [address] RAD, CHEST, 1 VIEW, NON [id number] 09:30:00Reason for exam:->Respiratory distress Should this be [...] Hercules Verified Date/Time: 07/12/2017 09:30:37 Reading Location: [facility] Reading Room POCT-GLUCOSE [id number] 07:54:00 Test Item Value Reference Range Comments POC-GLUCOSE METER (BEAKER) 332 mg/dL 70-110 TESTED AT [facility] [address] [place] [address] (test bxpw=6024) [facility] [address] VITAMIN [id number] 06:24:00 Test Item Value Reference Range Comments VITAMIN B12 (BEAKER) (test qwtk=084) 318 pg/mL 213-816 BASIC METABOLIC [id number] 05:51:00 Test Item Value Reference Range Comments SODIUM (BEAKER) (test 141 meq/L 136-145 dsci=529) POTASSIUM (BEAKER) (test 3.6 meq/L 3.5-5.1 miaf=174) CHLORIDE (BEAKER) (test 108 meq/L 98-107 uzrf=625) CO2 (BEAKER) (test 25 meq/L 22-29 mexm=451) BLOOD UREA NITROGEN 19 mg/dL 7-21 (BEAKER) (test npyi=866) CREATININE (BEAKER) (test 0.82 mg/dL 0.57-1.25 gvff=677) GLUCOSE RANDOM (BEAKER) 393 mg/dL 70-105 (test rcmn=752) CALCIUM (BEAKER) (test 8.9 mg/dL 8.4-10.2 uqxs=450) EGFR (BEAKER) (test 70 mL/min/1.73 sq m ESTIMATED GFR IS NOT melg=3057) ACCURATE CREATININE CLEARANCE IN PREDICTING GLOMERULAR FILTRATION RATE. ESTIMATED GFR IS NOT APPLICABLE FOR DIALYSIS PATIENTS. CBC W/PLT COUNT & AUTO [id number] 05:26:00 Test Item Value Reference Range Comments WHITE BLOOD CELL COUNT (BEAKER) (test qwmt=982) 8.0 K/ L 3.5-10.5 RED BLOOD CELL COUNT (BEAKER) (test nlqv=063) 3.44 M/ L 3.93-5.22 HEMOGLOBIN (BEAKER) (test fajt=484) 10.7 GM/DL 11.2-15.7 HEMATOCRIT (BEAKER) (test akjz=063) 32.8 % 34.1-44.9 MEAN CORPUSCULAR VOLUME (BEAKER) (test bmla=847) 95.3 fL 79.4-94.8 MEAN CORPUSCULAR HEMOGLOBIN (BEAKER) (test 31.1 pg 25.6-32.2 lwkp=485) MEAN CORPUSCULAR HEMOGLOBIN CONC (BEAKER) (test 32.6 GM/DL 32.2-35.5 mtlp=725) RED CELL DISTRIBUTION WIDTH (BEAKER) (test 13.5 % 11.7-14.4 xiaz=743) PLATELET COUNT (BEAKER) (test ctrq=613) 200 K/CU MM 150-450 MEAN PLATELET VOLUME (BEAKER) (test ggir=861) 13.0 fL 9.4-12.3 NUCLEATED RED BLOOD CELLS (BEAKER) (test 0 /100 WBC 0-0 ndor=188) NEUTROPHILS RELATIVE PERCENT (BEAKER) (test 64 % xlwx=451) LYMPHOCYTES RELATIVE PERCENT (BEAKER) (test 22 % tbsd=882) MONOCYTES RELATIVE PERCENT (BEAKER) (test 7 % uidz=317) EOSINOPHILS RELATIVE PERCENT (BEAKER) (test 6 % wsqr=344) BASOPHILS RELATIVE PERCENT (BEAKER) (test 1 % rnwr=682) NEUTROPHILS ABSOLUTE COUNT (BEAKER) (test 5.11 K/ L 1.56-6.13 jspd=086) LYMPHOCYTES ABSOLUTE COUNT (BEAKER) (test 1.73 K/ L 1.18-3.74 bqcb=208) MONOCYTES ABSOLUTE COUNT (BEAKER) (test 0.59 K/ L 0.24-0.36 xwyn=016) EOSINOPHILS ABSOLUTE COUNT (BEAKER) (test 0.47 K/ L 0.04-0.36 nhfz=515) BASOPHILS ABSOLUTE COUNT (BEAKER) (test 0.05 K/ L 0.01-0.08 neyd=022) IMMATURE GRANULOCYTES-RELATIVE PERCENT (BEAKER) 0 % 0-1 (test rmny=6574) POCT-GLUCOSE [id number] 22:48:00 Test Item Value Reference Range Comments POC-GLUCOSE METER (BEAKER) 376 mg/dL 70-110 Notified SAMAN HERNANDEZ/TESTED AT [facility] (test kcsk=2190) [address] [place] [address] POCT-GLUCOSE [id number] 22:04:00 Test Item Value Reference Range Comments POC-GLUCOSE METER (BEAKER) 434 mg/dL 70-110 Notified SAMAN HERNANDEZ/TESTED AT [facility] (test cqlm=2859) [address] [place] [address] POCT-GLUCOSE [id number] 18:16:00 Test Item Value Reference Range Comments POC-GLUCOSE METER (BEAKER) 340 mg/dL 70-110 Notified SAMAN HERNANDEZ/TESTED AT [facility] (test pwqr=6462) [address] [place] [address] POCT-GLUCOSE [id number] 12:40:00 Test Item Value Reference Range Comments POC-GLUCOSE METER (BEAKER) 339 mg/dL 70-110 Notified SAMAN HERNANDEZ/TESTED AT [facility] (test utrk=9265) [address] [place] [address] POCT-GLUCOSE [id number] 08:40:00 Test Item Value Reference Range Comments POC-GLUCOSE METER (BEAKER) 290 mg/dL 70-110 TESTED AT [address] (test hujw=8255) [facility] [address] RAD, CHEST, 1 VIEW, NON [id number] 08:02:00Reason for exam:-> intubatedShould this be performed [...] Location: [facility] Reading Room POCT-GLUCOSE [id number] 06:33:00 Test Item Value Reference Range Comments POC-GLUCOSE METER (BEAKER) 354 mg/dL 70-110 Notified SAMAN HERNANDEZ/TESTED AT [facility] (test dtmi=3768) [address] [facility] [address] BLOOD GAS, [id number] 05:30:00 Test Item Value Reference Range Comments PH ARTERIAL (BEAKER) (test igpn=225) 7.42 7.35-7.45 PCO2 ARTERIAL (BEAKER) (test pqjo=096) 29 mmHg 35-45 PO2 ARTERIAL (BEAKER) (test yxfr=323) 96 mmHg 80-90 O2 SATURATION ARTERIAL (BEAKER) (test fepn=353) 97.5 % 96.0-97.0 HCO3 ARTERIAL (BEAKER) (test fwum=646) 18 mmol/L 21-29 BASE EXCESS ARTERIAL (BEAKER) (test kugn=725) -5.1 mmol/L -2.0-3.0 PATIENT TEMPERATURE (BEAKER) (test rfms=3677) 37.0 C FIO2 (BEAKER) (test argw=0350) 21.0 % BASIC METABOLIC [id number] 03:15:00 Test Item Value Reference Range Comments SODIUM (BEAKER) (test 138 meq/L 136-145 giei=948) POTASSIUM (BEAKER) (test 3.9 meq/L 3.5-5.1 aqns=893) CHLORIDE (BEAKER) (test 109 meq/L 98-107 mxvw=629) CO2 (BEAKER) (test 18 meq/L 22-29 umei=320) BLOOD UREA NITROGEN 18 mg/dL 7-21 (BEAKER) (test lukd=484) CREATININE (BEAKER) (test 0.79 mg/dL 0.57-1.25 icle=701) GLUCOSE RANDOM (BEAKER) 349 mg/dL 70-105 (test pgmy=706) CALCIUM (BEAKER) (test 8.2 mg/dL 8.4-10.2 vohd=284) EGFR (BEAKER) (test 73 mL/min/1.73 sq m ESTIMATED GFR IS NOT dhuj=1352) ACCURATE CREATININE CLEARANCE IN PREDICTING GLOMERULAR FILTRATION RATE. ESTIMATED GFR IS NOT APPLICABLE FOR DIALYSIS PATIENTS. BLOOD GAS, [id number] 03:03:00 Test Item Value Reference Range Comments PH ARTERIAL (BEAKER) (test joif=102) 7.46 7.35-7.45 PCO2 ARTERIAL (BEAKER) (test ayzq=031) 31 mmHg 35-45 PO2 ARTERIAL (BEAKER) (test cpjf=852) 62 mmHg 80-90 O2 SATURATION ARTERIAL (BEAKER) (test vtbg=430) 93.1 % 96.0-97.0 HCO3 ARTERIAL (BEAKER) (test xwph=520) 21 mmol/L 21-29 BASE EXCESS ARTERIAL (BEAKER) (test zgaj=623) -1.6 mmol/L -2.0-3.0 PATIENT TEMPERATURE (BEAKER) (test rbqx=8253) 37.0 C FIO2 (BEAKER) (test lvkh=3646) 60.0 % CBC W/PLT COUNT & AUTO [id number] 03:03:00 Test Item Value Reference Range Comments WHITE BLOOD CELL COUNT (BEAKER) (test snut=188) 11.5 K/ L 3.5-10.5 RED BLOOD CELL COUNT (BEAKER) (test dvli=223) 3.57 M/ L 3.93-5.22 HEMOGLOBIN (BEAKER) (test szdk=226) 11.0 GM/DL 11.2-15.7 HEMATOCRIT (BEAKER) (test ydmm=707) 33.3 % 34.1-44.9 MEAN CORPUSCULAR VOLUME (BEAKER) (test ppca=564) 93.3 fL 79.4-94.8 MEAN CORPUSCULAR HEMOGLOBIN (BEAKER) (test 30.8 pg 25.6-32.2 zqwo=721) MEAN CORPUSCULAR HEMOGLOBIN CONC (BEAKER) (test 33.0 GM/DL 32.2-35.5 slkr=892) RED CELL DISTRIBUTION WIDTH (BEAKER) (test 13.4 % 11.7-14.4 aczm=159) PLATELET COUNT (BEAKER) (test ijcw=862) 181 K/CU MM 150-450 MEAN PLATELET VOLUME (BEAKER) (test kcsy=663) 13.1 fL 9.4-12.3 NUCLEATED RED BLOOD CELLS (BEAKER) (test 0 /100 WBC 0-0 ucbq=407) NEUTROPHILS RELATIVE PERCENT (BEAKER) (test 87 % ajhp=273) LYMPHOCYTES RELATIVE PERCENT (BEAKER) (test 6 % fqgh=889) MONOCYTES RELATIVE PERCENT (BEAKER) (test 5 % nrkb=588) EOSINOPHILS RELATIVE PERCENT (BEAKER) (test 1 % byfe=259) BASOPHILS RELATIVE PERCENT (BEAKER) (test 1 % qmns=203) NEUTROPHILS ABSOLUTE COUNT (BEAKER) (test 9.98 K/ L 1.56-6.13 hnda=196) LYMPHOCYTES ABSOLUTE COUNT (BEAKER) (test 0.67 K/ L 1.18-3.74 ntze=972) MONOCYTES ABSOLUTE COUNT (BEAKER) (test 0.56 K/ L 0.24-0.36 uwdh=005) EOSINOPHILS ABSOLUTE COUNT (BEAKER) (test 0.12 K/ L 0.04-0.36 lxal=208) BASOPHILS ABSOLUTE COUNT (BEAKER) (test 0.07 K/ L 0.01-0.08 vsle=575) IMMATURE GRANULOCYTES-RELATIVE PERCENT (BEAKER) 1 % 0-1 (test pssi=5837) POCT-GLUCOSE [id number] 00:49:00 Test Item Value Reference Range Comments POC-GLUCOSE METER (BEAKER) 301 mg/dL 70-110 Notified SAMAN HERNANDEZ/TESTED AT [facility] (test ggqw=0912) [address] [facility] [address] TROPONIN [id number] 00:36:00 Test Item Value Reference Range Comments TROPONIN I (BEAKER) (test wvji=096) 0.17 ng/mL 0.00-0.03 Troponin I (TnI) levels [...] and persistent tachyarrhythmia.CREATINE KINASE (CK), TOTAL AND [id number] 00:33:00 Test Item Value Reference Range Comments CREATINE KINASE TOTAL (BEAKER) (test ontz=810) 168 U/L 29-200 CREATINE KINASE-MB (BEAKER) (test ayqb=032) 1.2 ng/mL 0.0-6.6 CREATINE KINASE-MB INDEX (BEAKER) (test thml=051) 0.7 % CK-MB Reference Range:<6.7 Normal6.7-10.0 Borderline>10.0 AbnormalPOCT-GLUCOSE [id number] 18:13:00 Test Item Value Reference Range Comments POC-GLUCOSE METER (BEAKER) 302 mg/dL 70-110 TESTED AT [address] (test rzge=8336) [place] [id number] TROPONIN [id number] 17:15:00 Test Item Value Reference Range Comments TROPONIN I (BEAKER) (test ggsc=784) 0.32 ng/mL 0.00-0.03 Troponin I (TnI) levels [...] and persistent tachyarrhythmia.CREATINE KINASE (CK), TOTAL AND [id number] 17:05:00 Test Item Value Reference Range Comments CREATINE KINASE TOTAL (BEAKER) (test vuvv=069) 213 U/L 29-200 CREATINE KINASE-MB (BEAKER) (test ilvt=979) 2.1 ng/mL 0.0-6.6 CREATINE KINASE-MB INDEX (BEAKER) (test ylim=163) 1.0 % CK-MB Reference Range:<6.7 Normal6.7-10.0 Borderline>10.0 AbnormalPOCT-GLUCOSE [id number] 12:22:00 Test Item Value Reference Range Comments POC-GLUCOSE METER (BEAKER) 240 mg/dL 70-110 TESTED AT [address] (test kzmv=0517) [facility] [address] B-TYPE NATRIURETIC FACTOR (BNP)[id number] 12:01:00 Test Item Value Reference Range Comments B-TYPE NATRIURETIC PEPTIDE (BEAKER) (test 524 pg/mL 0-100 tsbp=940) POCT-GLUCOSE [id number] 06:33:00 Test Item Value Reference Range Comments POC-GLUCOSE METER (BEAKER) 227 mg/dL 70-110 TESTED AT [facility] [address] (test tbrp=6741) [facility] [address] COMPREHENSIVE METABOLIC [id number] 06:19:00 Test Item Value Reference Range Comments TOTAL PROTEIN (BEAKER) 6.7 gm/dL 6.0-8.3 (test bsmb=579) ALBUMIN (BEAKER) (test 3.2 g/dL 3.5-5.0 gddq=7648) ALKALINE PHOSPHATASE 77 U/L 40-150 (BEAKER) (test fcsf=075) BILIRUBIN TOTAL (BEAKER) 0.9 mg/dL 0.2-1.2 (test pndi=881) SODIUM (BEAKER) (test 139 meq/L 136-145 fmfy=870) POTASSIUM (BEAKER) (test 3.7 meq/L 3.5-5.1 mxue=510) CHLORIDE (BEAKER) (test 109 meq/L 98-107 ospd=734) CO2 (BEAKER) (test 18 meq/L 22-29 zohh=905) BLOOD UREA NITROGEN 13 mg/dL 7-21 (BEAKER) (test ijdx=282) CREATININE (BEAKER) (test 0.69 mg/dL 0.57-1.25 jypo=005) GLUCOSE RANDOM (BEAKER) 250 mg/dL 70-105 (test faps=812) CALCIUM (BEAKER) (test 8.0 mg/dL 8.4-10.2 rpxe=915) AST (SGOT) (BEAKER) (test 18 U/L 5-34 bysk=406) ALT (SGPT) (BEAKER) (test 13 U/L 6-55 prjq=840) EGFR (BEAKER) (test 85 mL/min/1.73 sq m ESTIMATED GFR IS NOT oekm=6160) ACCURATE CREATININE CLEARANCE IN PREDICTING GLOMERULAR FILTRATION RATE. ESTIMATED GFR IS NOT APPLICABLE FOR DIALYSIS PATIENTS. BASIC METABOLIC [id number] 06:19:00 Test Item Value Reference Range Comments SODIUM (BEAKER) (test 139 meq/L 136-145 zsxs=149) POTASSIUM (BEAKER) (test 3.7 meq/L 3.5-5.1 tjkt=636) CHLORIDE (BEAKER) (test 109 meq/L 98-107 ilqk=564) CO2 (BEAKER) (test 18 meq/L 22-29 ovyq=489) BLOOD UREA NITROGEN 13 mg/dL 7-21 (BEAKER) (test zfyc=910) CREATININE (BEAKER) (test 0.69 mg/dL 0.57-1.25 iscg=286) GLUCOSE RANDOM (BEAKER) 250 mg/dL 70-105 (test muwr=363) CALCIUM (BEAKER) (test 8.0 mg/dL 8.4-10.2 vgtt=048) EGFR (BEAKER) (test 85 mL/min/1.73 sq m ESTIMATED GFR IS NOT uaoy=5242) ACCURATE CREATININE CLEARANCE IN PREDICTING GLOMERULAR FILTRATION RATE. ESTIMATED GFR IS NOT APPLICABLE FOR DIALYSIS PATIENTS. BLOOD GAS, [id number] 06:13:00 Test Item Value Reference Range Comments PH ARTERIAL (BEAKER) (test wbss=775) 7.42 7.35-7.45 PCO2 ARTERIAL (BEAKER) (test xngq=471) 34 mmHg 35-45 PO2 ARTERIAL (BEAKER) (test boku=023) 106 mmHg 80-90 O2 SATURATION ARTERIAL (BEAKER) (test aqyh=754) 98.0 % 96.0-97.0 HCO3 ARTERIAL (BEAKER) (test qzaa=045) 22 mmol/L 21-29 BASE EXCESS ARTERIAL (BEAKER) (test tuaz=076) -2.3 mmol/L -2.0-3.0 PATIENT TEMPERATURE (BEAKER) (test vtcg=0213) 37.0 C FIO2 (BEAKER) (test gnqm=0530) 50.0 % CBC W/PLT COUNT & AUTO [id number] 05:53:00 Test Item Value Reference Range Comments WHITE BLOOD CELL COUNT (BEAKER) (test nrzc=310) 12.9 K/ L 3.5-10.5 RED BLOOD CELL COUNT (BEAKER) (test mlni=105) 3.78 M/ L 3.93-5.22 HEMOGLOBIN (BEAKER) (test olsv=484) 11.9 GM/DL 11.2-15.7 HEMATOCRIT (BEAKER) (test wzpt=686) 35.5 % 34.1-44.9 MEAN CORPUSCULAR VOLUME (BEAKER) (test yklh=864) 93.9 fL 79.4-94.8 MEAN CORPUSCULAR HEMOGLOBIN (BEAKER) (test 31.5 pg 25.6-32.2 lfvq=381) MEAN CORPUSCULAR HEMOGLOBIN CONC (BEAKER) (test 33.5 GM/DL 32.2-35.5 cpyb=980) RED CELL DISTRIBUTION WIDTH (BEAKER) (test 13.5 % 11.7-14.4 ipiw=227) PLATELET COUNT (BEAKER) (test ttpi=422) 198 K/CU MM 150-450 MEAN PLATELET VOLUME (BEAKER) (test yxnb=862) 12.7 fL 9.4-12.3 NUCLEATED RED BLOOD CELLS (BEAKER) (test 0 /100 WBC 0-0 phxr=543) NEUTROPHILS RELATIVE PERCENT (BEAKER) (test 77 % oigx=595) LYMPHOCYTES RELATIVE PERCENT (BEAKER) (test 14 % gttc=045) MONOCYTES RELATIVE PERCENT (BEAKER) (test 7 % vaoj=568) EOSINOPHILS RELATIVE PERCENT (BEAKER) (test 2 % qxye=958) BASOPHILS RELATIVE PERCENT (BEAKER) (test 0 % bmhu=362) NEUTROPHILS ABSOLUTE COUNT (BEAKER) (test 9.92 K/ L 1.56-6.13 vmuu=678) LYMPHOCYTES ABSOLUTE COUNT (BEAKER) (test 1.74 K/ L 1.18-3.74 wflf=204) MONOCYTES ABSOLUTE COUNT (BEAKER) (test 0.85 K/ L 0.24-0.36 rtwe=039) EOSINOPHILS ABSOLUTE COUNT (BEAKER) (test 0.22 K/ L 0.04-0.36 ojjm=345) BASOPHILS ABSOLUTE COUNT (BEAKER) (test 0.05 K/ L 0.01-0.08 kelf=011) IMMATURE GRANULOCYTES-RELATIVE PERCENT (BEAKER) 1 % 0-1 (test vuqr=9347) LACTIC ACID, ARTERIAL, WHOLE [id number] 05:17:00 Test Item Value Reference Range Comments LACTATE BLOOD ARTERIAL (2) (BEAKER) (test 0.8 mmol/L 0.5-2.2 rczb=5372) Effective 09/02/2015: Units/Reference Range ChangeNew: 0.5-2.2 mmol/L Previous: 5 -20 mg/dLRAD, CHEST, 1 VIEW, NON [id number] 03:58:00Reason for exam:-> concern for aspirationShould this be performed at the bedside?->YesFINAL REPORT RAD, CHEST, 1 VIEW, NON DEPT INDICATION: concern for aspiration COMPARISON: Prior day's exam TECHNIQUE: Portable frontal view of the chest. IMPRESSION: Interval extubation.Stable cardiomegaly.Worsening pulmonary interstitial edema.No pneumothorax.No acute osseous abnormality. Signed: Jb Veronica MDReport Verified Date/Time: 07/10/2017 03:58:42 Reading Location: [address] Ortho Consult Reading Room CT, BRAIN, WITHOUT [id number] 03:09:00Reason for exam:->Stroke evaluationFINAL REPORT CT, BRAIN, [...] MDReport Verified Date/Time: 07/10/2017 03:09:32 Reading Location: [facility] C013X Ortho Consult Reading Room POCT- GLUCOSE [id number] 00:20:00 Test Item Value Reference Range Comments POC-GLUCOSE METER (BEAKER) 200 mg/dL 70-110 TESTED AT [facility] [address] [place] [address] (test hjol=1781) [facility] [address] POCT-GLUCOSE [id number] 20:32:00 Test Item Value Reference Range Comments POC-GLUCOSE METER (BEAKER) 237 mg/dL 70-110 TESTED AT [address] (test brjk=1334) [facility] [address] URINALYSIS W/ [id number] 20:08:00 Test Item Value Reference Range Comments COLOR (BEAKER) (test uapn=017) Light Yellow CLARITY (BEAKER) (test tkxq=536) Clear SPECIFIC GRAVITY UA (BEAKER) (test ojdr=173) 1.009 1.001-1.035 PH UA (BEAKER) (test heno=946) 5.5 5.0-8.0 PROTEIN UA (BEAKER) (test rijl=780) 70 mg/dL Negative GLUCOSE UA (BEAKER) (test fjkv=753) 50 mg/dL Negative KETONES UA (BEAKER) (test nrcv=495) Negative Negative BILIRUBIN UA (BEAKER) (test bbip=656) Negative Negative BLOOD UA (BEAKER) (test cbtr=606) Negative Negative NITRITE UA (BEAKER) (test satu=584) Negative Negative LEUKOCYTE ESTERASE UA (BEAKER) (test qwwb=518) Trace Negative UROBILINOGEN UA (BEAKER) (test vdsp=813) 0.2 mg/dL 0.2-1.0 RBC UA (BEAKER) (test juuh=368) < /HPF WBC UA (BEAKER) (test pjkr=801) 25 /HPF BACTERIA (BEAKER) (test hpzf=273) Rare MUCUS (BEAKER) (test vyrh=0774) Rare SQUAMOUS EPITHELIAL (BEAKER) (test wapa=895) 1 /HPF SOURCE(BEAKER) (test bhgt=7212) POCT-GLUCOSE [id number] 18:44:00 Test Item Value Reference Range Comments POC-GLUCOSE METER (BEAKER) 174 mg/dL 70-110 TESTED AT [address] (test upox=2622) [facility] [address] HEMOGLOBIN [id number] 14:47:00 Test Item Value Reference Range Comments HEMOGLOBIN A1C (BEAKER) (test igdf=809) 12.4 % 4.3-6.1 POCT-GLUCOSE [id number] 11:44:00 Test Item Value Reference Range Comments POC-GLUCOSE METER (BEAKER) 149 mg/dL 70-110 TESTED AT [address] (test kkli=3294) [facility] [address] RAD, CHEST, 1 VIEW, NON [id number] 07:42:00Reason for exam:-> intubatedShould this be performed [...] Date/ Time: 07/09/2017 07:42:12 Reading Location: [address] Body Reading Room [facility] BRAIN WITHOUT IV CONTRAST - [id number] 07:37:00Reason for exam:->L. MCA strokeFINAL REPORT CT [...] Joseph Verified Date/Time: 07/09/2017 07:37:39 Reading Location: [facility] C013V Neuro Reading Room TSH/FREE T4 IF [id number] 05:41:00 Test Item Value Reference Range Comments THYROID STIMULATING HORMONE (BEAKER) (test 0.60 uIU/mL 0.35-4.94 zfvk=067) BASIC METABOLIC [id number] 04:33:00 Test Item Value Reference Range Comments SODIUM (BEAKER) (test 138 meq/L 136-145 hded=087) POTASSIUM (BEAKER) (test 3.4 meq/L 3.5-5.1 lzvd=333) CHLORIDE (BEAKER) (test 107 meq/L 98-107 jctc=141) CO2 (BEAKER) (test 20 meq/L 22-29 xywf=041) BLOOD UREA NITROGEN 17 mg/dL 7-21 (BEAKER) (test mvjb=938) CREATININE (BEAKER) (test 0.68 mg/dL 0.57-1.25 dwmx=098) GLUCOSE RANDOM (BEAKER) 118 mg/dL 70-105 (test ibnv=471) CALCIUM (BEAKER) (test 7.9 mg/dL 8.4-10.2 delv=587) EGFR (BEAKER) (test mL/min/1.73 sq m INSUFFICIENT CLINICAL DATA geje=1832) TO CALCULATE ESTIMATED GFR. LIPID [id number] 04:30:00 Test Item Value Reference Range Comments TRIGLYCERIDES (BEAKER) (test asmx=637) 300 mg/dL CHOLESTEROL (BEAKER) (test supd=149) 204 mg/dL HDL CHOLESTEROL (BEAKER) (test shwm=844) 33 mg/dL LDL CHOLESTEROL CALCULATED (BEAKER) (test 111 mg/dL ybyx=015) Triglyceride Reference Range: Low Risk <150 Borderline 150- 199 High Risk 200-499 Very High Risk >=500Cholesterol Reference Range: Low Risk <200 Borderline 200-239 High Risk > 240HDL Cholesterol Reference Range: Low Risk >=60 High Risk <40LDL Cholesterol Reference Range: Optimal <100 Near Optimal 100-129 Borderline 130-159 High 160-189 Very High >=190BLOOD GAS, [id number] 04:11:00 Test Item Value Reference Range Comments PH ARTERIAL (BEAKER) (test fddq=543) 7.42 7.35-7.45 PCO2 ARTERIAL (BEAKER) (test atfc=693) 37 mmHg 35-45 PO2 ARTERIAL (BEAKER) (test qcrv=413) 90 mmHg 80-90 O2 SATURATION ARTERIAL (BEAKER) (test bxtx=187) 97.1 % 96.0-97.0 HCO3 ARTERIAL (BEAKER) (test lxor=715) 24 mmol/L 21-29 BASE EXCESS ARTERIAL (BEAKER) (test cbra=071) -0.6 mmol/L -2.0-3.0 PATIENT TEMPERATURE (BEAKER) (test yifv=1136) 37.0 C FIO2 (BEAKER) (test cdpx=2196) 40.0 % CBC W/PLT COUNT & AUTO [id number] 04:10:00 Test Item Value Reference Range Comments WHITE BLOOD CELL COUNT (BEAKER) (test ymze=241) 12.9 K/ L 3.5-10.5 RED BLOOD CELL COUNT (BEAKER) (test xuml=814) 3.88 M/ L 3.93-5.22 HEMOGLOBIN (BEAKER) (test szsk=434) 12.0 GM/DL 11.2-15.7 HEMATOCRIT (BEAKER) (test ljhv=374) 35.8 % 34.1-44.9 MEAN CORPUSCULAR VOLUME (BEAKER) (test ukvq=949) 92.3 fL 79.4-94.8 MEAN CORPUSCULAR HEMOGLOBIN (BEAKER) (test 30.9 pg 25.6-32.2 xocu=279) MEAN CORPUSCULAR HEMOGLOBIN CONC (BEAKER) (test 33.5 GM/DL 32.2-35.5 wfur=982) RED CELL DISTRIBUTION WIDTH (BEAKER) (test 13.4 % 11.7-14.4 crcf=287) PLATELET COUNT (BEAKER) (test ouxj=070) 203 K/CU MM 150-450 MEAN PLATELET VOLUME (BEAKER) (test kkhp=708) 12.7 fL 9.4-12.3 NUCLEATED RED BLOOD CELLS (BEAKER) (test 0 /100 WBC 0-0 qvip=468) NEUTROPHILS RELATIVE PERCENT (BEAKER) (test 75 % jkbe=948) LYMPHOCYTES RELATIVE PERCENT (BEAKER) (test 18 % qjpv=684) MONOCYTES RELATIVE PERCENT (BEAKER) (test 6 % lbel=700) EOSINOPHILS RELATIVE PERCENT (BEAKER) (test 1 % kpnp=895) BASOPHILS RELATIVE PERCENT (BEAKER) (test 0 % ayls=236) NEUTROPHILS ABSOLUTE COUNT (BEAKER) (test 9.66 K/ L 1.56-6.13 rleo=394) LYMPHOCYTES ABSOLUTE COUNT (BEAKER) (test 2.30 K/ L 1.18-3.74 nmkg=091) MONOCYTES ABSOLUTE COUNT (BEAKER) (test 0.76 K/ L 0.24-0.36 aqps=845) EOSINOPHILS ABSOLUTE COUNT (BEAKER) (test 0.10 K/ L 0.04-0.36 nhcl=570) BASOPHILS ABSOLUTE COUNT (BEAKER) (test 0.04 K/ L 0.01-0.08 mbqw=448) IMMATURE GRANULOCYTES-RELATIVE PERCENT (BEAKER) 0 % 0-1 (test mazl=0974) BASIC METABOLIC [id number] 23:50:00 Test Item Value Reference Range Comments SODIUM (BEAKER) (test 139 meq/L 136-145 kvif=656) POTASSIUM (BEAKER) (test 3.5 meq/L 3.5-5.1 qhfm=538) CHLORIDE (BEAKER) (test 106 meq/L 98-107 ckfm=315) CO2 (BEAKER) (test 22 meq/L 22-29 xkyz=113) BLOOD UREA NITROGEN 19 mg/dL 7-21 (BEAKER) (test adss=959) CREATININE (BEAKER) (test 0.68 mg/dL 0.57-1.25 nrlq=443) GLUCOSE RANDOM (BEAKER) 114 mg/dL 70-105 (test pqfz=191) CALCIUM (BEAKER) (test 8.2 mg/dL 8.4-10.2 nkvi=332) EGFR (BEAKER) (test mL/min/1.73 sq m INSUFFICIENT CLINICAL DATA dtsc=5963) TO CALCULATE ESTIMATED GFR. HEPATIC FUNCTION [id number] 23:26:00 Test Item Value Reference Range Comments TOTAL PROTEIN (BEAKER) (test yscy=458) 6.7 gm/dL 6.0-8.3 ALBUMIN (BEAKER) (test zwyg=4232) 3.3 g/dL 3.5-5.0 BILIRUBIN TOTAL (BEAKER) (test prje=702) 0.4 mg/dL 0.2-1.2 BILIRUBIN DIRECT (BEAKER) (test ysgx=594) 0.2 mg/dL 0.1-0.5 ALKALINE PHOSPHATASE (BEAKER) (test cayc=269) 76 U/L 40-150 AST (SGOT) (BEAKER) (test wfhh=352) 22 U/L 5-34 ALT (SGPT) (BEAKER) (test apuv=337) 16 U/L 6-55 CBC W/PLT COUNT & AUTO [id number] 23:25:00 Test Item Value Reference Range Comments WHITE BLOOD CELL COUNT (BEAKER) (test xuil=208) 14.1 K/ L 3.5-10.5 RED BLOOD CELL COUNT (BEAKER) (test pgyz=162) 4.01 M/ L 3.93-5.22 HEMOGLOBIN (BEAKER) (test hgse=654) 12.6 GM/DL 11.2-15.7 HEMATOCRIT (BEAKER) (test nwth=231) 36.7 % 34.1-44.9 MEAN CORPUSCULAR VOLUME (BEAKER) (test uywt=014) 91.5 fL 79.4-94.8 MEAN CORPUSCULAR HEMOGLOBIN (BEAKER) (test 31.4 pg 25.6-32.2 djqo=616) MEAN CORPUSCULAR HEMOGLOBIN CONC (BEAKER) (test 34.3 GM/DL 32.2-35.5 cvuv=819) RED CELL DISTRIBUTION WIDTH (BEAKER) (test 13.2 % 11.7-14.4 yqqp=192) PLATELET COUNT (BEAKER) (test meaq=808) 212 K/CU MM 150-450 MEAN PLATELET VOLUME (BEAKER) (test bdiz=947) 12.6 fL 9.4-12.3 NUCLEATED RED BLOOD CELLS (BEAKER) (test 0 /100 WBC 0-0 fogh=643) NEUTROPHILS RELATIVE PERCENT (BEAKER) (test 78 % gdrs=857) LYMPHOCYTES RELATIVE PERCENT (BEAKER) (test 15 % cgdo=255) MONOCYTES RELATIVE PERCENT (BEAKER) (test 7 % brlj=233) EOSINOPHILS RELATIVE PERCENT (BEAKER) (test 1 % efvy=169) BASOPHILS RELATIVE PERCENT (BEAKER) (test 0 % lzco=947) NEUTROPHILS ABSOLUTE COUNT (BEAKER) (test 10.90 K/ L 1.56-6.13 knva=052) LYMPHOCYTES ABSOLUTE COUNT (BEAKER) (test 2.10 K/ L 1.18-3.74 hxbf=713) MONOCYTES ABSOLUTE COUNT (BEAKER) (test 0.92 K/ L 0.24-0.36 iyab=661) EOSINOPHILS ABSOLUTE COUNT (BEAKER) (test 0.09 K/ L 0.04-0.36 gunc=231) BASOPHILS ABSOLUTE COUNT (BEAKER) (test 0.03 K/ L 0.01-0.08 fvpj=846) IMMATURE GRANULOCYTES-RELATIVE PERCENT (BEAKER) 0 % 0-1 (test mysk=2487) PROTHROMBIN [id number] 23:12:00 Test Item Value Reference Range Comments PROTIME (BEAKER) (test pgcj=198) 14.2 seconds 11.7-14.7 INR (BEAKER) (test kjvq=121) 1.1 <=5.9 RECOMMENDED COUMADIN/WARFARIN INR THERAPY RANGESSTANDARD DOSE: 2.0 - 3.0 Includes: PROPHYLAXIS forvenous thrombosis, systemic embolization; TREATMENT for venous thrombosis and/or pulmonary embolus.HIGH RISK: Target INR is 2.5-3.5 for patients with mechanical heart valves.POCT-GLUCOSE [id number] 21:38:00 Test Item Value Reference Range Comments POC-GLUCOSE METER (BEAKER) 94 mg/dL 70-110 TESTED AT [facility] [address] [place] [address] (test xbvh=4714) [facility] [address] [address], COMMON CAROTID OR INNOMINATE W EXTRACRANIAL [...] common femoral artery x1 MATERIALS EMPLOYED:1. 8 Chinese short sheath 2. 5 Chinese 125cm diagnostic catheter3. Bentson guidewire4. Terumo 0.035 LT glidewire5. Flowgate 8f Balloon Guide Catheter8. 8 Chinese Angioseal device INDICATIONS:The patient is a 67-year- old female with history of hypertension, diabetes and prior stroke who presented with acute onset aphasia in her hometown of [place] around 11:00 AM. She was evaluated and transferred to [facility] for further evaluation treatment. On arrival, [...] the puncture site was confirmed, a 8 Chinese short sheath was inserted over a Bentson wire and was maintained on heparinized saline flush throughout the remainder of the procedure. Using coaxial technique, a preflushed 5 Chinese 125cm diagnostic glide catheter on constant heparinized saline flush was placed through a pre- flushed and pre-prepped 8 Chinese Flowgate balloon Guide catheter. The two catheters [...] seen. [facility] The femoral sheath was removed and hemostasis achieved with an 8 Chinese Angioseal and manual compression. The patient tolerated [...] inferiordivision origin remains. FACULTY ATTESTATION: I, Tristen Puir M.D., was present for the entirety of the procedure. I performed or directly supervised all aspects of the procedure. I performed allcritical aspects of the case. I interpreted the images and reported the results. Signed: Tristen Puri MDReport Verified Date/Time: 07/08/2017 18: 24:25 Reading Location: [facility] Y8 Neuro Angio Reading Room [facility], CTANGIO [id number] 15:00:00FINAL REPORT CLINICAL HISTORY: Stroke TECHNIQUE: Contiguous [...] FINDINGS: There is no evidence for a iliamna of Steele first order branch vessel occlusion. [...] MDReport Verified Date/Time: 2017 15:00:43 Reading Location: [address] Neuro Reading Room CT, CAROTID , [id number] 15:00:00FINAL REPORT CLINICAL HISTORY: Stroke TECHNIQUE: Contiguous [...] FINDINGS: There is no evidence for a iliamna of Steele first order branch vessel occlusion. [...] MDReport Verified Date/Time: 2017 15:00:43 Reading Location: [address] Neuro Reading Room CT, CEREBRAL PERFUSION [id number] 15:00:00FINAL REPORT CLINICAL HISTORY: Stroke TECHNIQUE: Contiguous [...] FINDINGS: There is no evidence for a iliamna of Steele first order branch vessel occlusion. [...] Verified Date/ Time: 07/08/2017 15:00:43 Reading Location: [address] Neuro Reading Room [facility], BRAIN/STROKE [id number] 14:24:00FINAL REPORT CT Head without contrast CLINICAL [...] MDReport Verified Date/Time: 07/08/2017 14:24:44 Reading Location: [facility] B1 C013V Neuro Reading Room
[2018-01-01] MEDS ORDERED: HYDROCODONE/APAP 10/325 TAB ONE (12:00)
--- NOTE | 2018-01-01 12:19 | RAD REPORT ---
EXAM DESCRIPTION: RAD - Ankle Left 3 View -01/01/2018 12:10 pm CLINICAL HISTORY: Left ankle pain status post fall FINDINGS: A trimalleolar fracture is present. A large posterior malleolar fracture fragment is prese nt with marked displacement. Tibiotalar dislocation is present.
--- NOTE | 2018-01-01 12:29 | RAD REPORT ---
EXAM DESCRIPTION: CT - Head C Spine Mpr Wo Con - 01/01/2018 12:12 pm CLINICAL HISTORY: Head and neck injury status post fall. Head and neck pain COMPARISON: C Spine Wo Con dated 08/01/2017; TECHNIQUE: Computed axial tomography of the head and cervical spine was obtained. Sagittal and coronal reconstruction was performed. All CT scans are performed using dose optimization technique as appropriate and may include automated exposure control or mA/KV adjustment according to patient size. FINDINGS: An intracranial bleed is not seen. Mild low-density areas within periventricular deep whit e matter likely represent ischemic changes secondary to small vessel disease The ventricles are ollie l in caliber. An extra-axial fluid collection is not noted.Fluid within the visualized sinuses and ma stoids is not seen A cervical fracture is not visualized. No dislocation is noted. Spondylosis involves the cervical spine IMPRESSION: No acute intracranial abnormality is seen. A cervical fracture is not visualized. If the patient continues to have symptoms to suggest intracra nial /spinal cord pathology then MRI would be recommended
[2018-01-01] MEDS ORDERED: HYDROMORPHONE HCL 1 MG/ML INJ ONE ×2 (12:55→14:21)
[2018-01-01] MEDS ORDERED: ONDANSETRON 4 MG/2 ML VIAL ONE (12:55)
[2018-01-01 13:08] LABS: Absolute Lymphocytes (CBC) 1.2 K/uL (0.7-4.9); Absolute Monocytes 0.7 K/uL (0.1-1.3); Absolute Neutrophil 9.9 K/uL (1.8-8.0); Basophils % 0.6 % (0-1.3); Eosinophils % 0.2 % (0-4.4); Hematocrit 43.5 % (36.0-45.0); Lymphocytes % 10.5 % (15.3-44.8); MCH 31.2 pg (27.0-35.0); MCV 94.6 fL (80-100); MPV 12.4 fL (7.6-11.3); Monocytes % 5.5 % (3.3-12.3)
[2018-01-01 13:21] LABS: Protime INR 0.98
[2018-01-01 13:43] LABS: ALT/SGPT 15 U/L (12-78); AST/SGOT 17 U/L (15-37); Alkaline Phosphatase 108 U/L (45-117); BUN Blood Urea Nitrogen 23 mg/dL (7-18); Bicarbonate 28 mmol/L (21-32); Bilirubin Direct < 0.1 mg/dL (0-0.2); Bilirubin Total 0.3 mg/dL (0.2-1.0); Glucose Level 258 mg/dL (74-106); Potassium 3.4 mmol/L (3.5-5.1); Protein, Total 7.8 g/dL (6.4-8.2); Sodium Level 140 mmol/L (136-145)
--- NOTE | 2018-01-01 13:53 | RAD REPORT ---
EXAM DESCRIPTION: RAD - Ankle Left 2 View - 01/01/2018 1:45 pm CLINICAL HISTORY: Left ankle fracture FINDINGS: Splint immobilizes previously described fractures/dislocation of the left ankle
--- NOTE | 2018-01-01 14:23 | RAD REPORT ---
EXAM DESCRIPTION: RADChest Single View01/01/2018 1:42 pm CLINICAL HISTORY: preoperative for ankle surgery COMPARISON: Chest Single View dated 08/31/2017; FINDINGS: The lungs appear clear of acute infiltrate. The heart is normal size IMPRESSION: No acute abnormalities displayed
--- NOTE | 2018-01-01 14:47 | ER ---
Nurse's Notes [facility] Name: Apoorva Christie Age: 67 yrs Sex: Female : 1950 Arrival Date: 01/01/2018 Time: 11:03 Bed 17 Private MD: Chapin Arias R Diagnosis: Trimalleolar fracture of lower leg-left Presentation: 01/01 11:09 Presenting complaint: Child states: she was up at 3 am, went to the bathroom, slipped hj and fell, and hurt her L ankle, hit her heard, denies LOC; pain 10/10; on triage, L ankle swollen;. Transition of care: patient was not received from another setting of care. Onset of symptoms was January 01, 2018. Risk Assessment: Do you want to hurt yourself or someone else? Patient reports no desire to harm self or others. Initial Sepsis Screen: Does the patient meet any 2 criteria? No. Patient's initial sepsis screen is negative. Does the patient have a suspected source of infection? No. Patient's initial sepsis screen is negative. Care prior to arrival: None. 11:09 Method Of Arrival: Ambulatory 11:09 Acuity: AWA 4 11:15 Mechanism of Injury: Fall from standing position. Trauma event details: Injury iw occurred: January 01, 2018. Triage Assessment: 11:12 General: Appears in no apparent distress. uncomfortable, Behavior is calm, cooperative, hj appropriate for age. Pain: Complains of pain in L ankle. Musculoskeletal: Reports pain in L ankle. Trauma Activation: Not Applicable Physician: ED Physician; Name: ; Notified At: ; Arrived At: Physician: General Surgeon; Name: ; Notified At: ; Arrived At: Physician: Radiology; Name: ; Notified At: ; Arrived At: Physician: Respiratory; Name: ; Notified At: ; Arrived At: Physician: Lab; Name: ; Notified At: ; Arrived At: Historical: - Allergies: 11:12 codeine sulfate; hj - Home Meds: 11:12 Novolin N Sub-Q [Active]; amlodipine 10 mg tab [Active]; lisinopril 40 mg Oral tab hj [Active]; aspirin 81 mg Oral chew [Active]; atorvastatin 20 mg Oral tab 1 tab once daily [Active]; carvedilol 6.25 mg Oral tab [Active]; donepezil 5 mg Oral tab 1 tab once daily [Active]; Lantus 100 unit/mL Sub-Q soln [Active]; - PMHx: 11:12 brain blockage; Cirrhosis; CVA; Diabetes - IDDM; Hypertension; meningitis; progressive hj tremors; - PSHx: 11:12 Cholecystectomy; Knee surgery; ; Hysterectomy; hj - Immunization history:: Adult Immunizations up to date. - Social history:: Smoking status: Patient/guardian denies using tobacco, Patient/guardian denies using alcohol. - Immunization history: Last tetanus immunization: unknown. - Ebola Screening: : Patient negative for fever greater than or equal to 101.5 degrees Fahrenheit, and additional compatible Ebola Virus Disease symptoms Patient denies exposure to infectious person Patient denies travel to an Ebola-affected area in the 21 days before illness onset. Screenin:12 Abuse screen: Denies threats or abuse. Denies injuries from another. Nutritional hj screening: No deficits noted. Tuberculosis screening: No symptoms or risk factors identified. Fall Risk Fall in past 12 months (25 points). Primary Survey: 11:30 A: Airway: patent. Breathing/Chest: Respiratory pattern: regular, Respiratory effort: iw spontaneous, unlabored, Chest inspection: symmetrical rise and fall of the chest. Circulation: Cardiac rhythm: sinus rhythm. Disability Alert. 13:00 Reassessment Breathing/Chest Respiratory pattern Regular Respiratory effort Spontaneous iw Unlabored. Secondary Survey: 13:40 Musculoskeletal: unable to palpate left pedal pulse, Kennedy at bedside to assess with iw Doppler. 14:50 Musculoskeletal: left foot is now pain, warm. iw Assessment: 11:36 General: Appears in no apparent distress. comfortable, Behavior is calm, cooperative. iw Pain: Complains of pain in anterior aspect of left ankle. Neuro: Level of Consciousness is awake, alert, obeys commands, Oriented to person, place, time, situation. Cardiovascular: Patient's skin is warm and dry. Respiratory: Respiratory effort is even, unlabored, Respiratory pattern is regular. Derm: Skin is intact, is healthy with good turgor. Musculoskeletal: Range of motion: limited in left ankle. 12:09 Musculoskeletal: Swelling present in left ankle and anterior aspect of left ankle. iw 13:36 Reassessment: radiology at bedside for repeat xray. iw 14:03 Reassessment: unable to palpate pedal pulse in left foot, unable to Doppler pulse by iw Kennedy LINING CUTTER, left foot now feels cold compared to right foot, Dr. Acuna at bedside to asses foot/ankle. 14:20 Reassessment: Dr. Contreras at bedside to assess pt. iw 14:50 Reassessment: Kennedy reports improved circulation to left foot after Dr. Contreras iw further reduced ankle. Vital Signs: 11:13 BP 158 / 100; Pulse 97; Resp 18; Temp 97.8(TE); Pulse Ox 98% on R/A; Weight 88 kg; hj Height 5 ft. 5 in. (165.10 cm); Pain 10/10; 12:58 BP 167 / 59; Pulse 84; Resp 16; Pulse Ox 100% on R/A; iw 14:06 BP 181 / 82; Pulse 74; Resp 16; Pulse Ox 97% on R/A; Pain 5/10; iw 15:53 BP 167 / 74; Pulse 75; Resp 16; Temp 97.2(TE); Pulse Ox 98% on R/A; Pain 4/10; iw 11:13 Body Mass Index 32.28 (88.00 kg, 165.10 cm) hj Avis Coma Score: 11:15 Eye Response: spontaneous(4). Verbal Response: oriented(5). Motor Response: obeys iw commands(6). Total: 15. Trauma Score (Adult): 11:15 Eye Response: spontaneous(1); Verbal Response: oriented(1); Motor Response: obeys iw commands(2); Systolic BP: > 89 mm Hg(4); Respiratory Rate: 10 to 29 per min(4); Denise Score: 15; Trauma Score: 12 14:06 Eye Response: spontaneous(1); Verbal Response: oriented(1); Motor Response: obeys iw commands(2); Systolic BP: > 89 mm Hg(4); Respiratory Rate: 10 to 29 per min(4); Avis Score: 15; Trauma Score: 12 ED Course: 11:03 Patient arrived in ED. sb2 11:03 Chapin Arias MD is Private Physician. sb2 11:11 Triage completed. hj 11:13 Arm band placed on left wrist. hj 11:13 Patient has correct armband on for positive identification. Bed in low position. Call hj light in reach. Side rails up X 1. Adult w/ patient. 11:19 Kennedy Huang NP is PHCP. pm1 11:19 Hector Acuna MD is Attending Physician. pm1 11:35 Thermoregulation: warm blanket given to patient. iw 11:36 Maddie Dove, SAMAN is Primary Nurse. iw 11:37 No provider procedures requiring assistance completed. iw 12:10 Ankle Left 3 View XRAY In Process Unspecified. EDMS 12:11 CT completed. Patient tolerated procedure well. Patient moved to CT via stretcher. sj Patient moved back from CT. 12:12 CT Head C Spine In Process Unspecified. EDMS 12:42 Inserted saline lock: 20 gauge in left antecubital area, using aseptic technique. Blood iw collected. 13:42 XRAY Chest (1 view) In Process Unspecified. EDMS 13:42 Ankle Left 2 View XRAY In Process Unspecified. EDMS 14:46 Renan Carrero MD is Hospitalizing Provider. pm1 15:12 EKG done, by ED staff, reviewed by Kennedy Huang NP. mh5 15:26 Ankle Left 2 View XRAY In Process Unspecified. EDMS 16:05 Oxygen administration via nasal cannula \T\ 2L/min. iw 16:45 Patient transferred, IV remains in place. iw Administered Medications: 11:59 Drug: Beaumont 10 mg-325 mg 1 tabs Route: PO; iw 12:20 Drug: Dilaudid 1 mg Route: IVP; Site: left antecubital; dm5 12:41 CANCELLED (Changed to dilaudid): morphine 4 mg IVP once pm1 12:55 Drug: Zofran 4 mg Route: IVP; Site: left antecubital; iw 13:10 Drug: Dilaudid 1 mg Route: IVP; Site: left antecubital; iw 13:51 Not Given (Duplicate Order): Zofran 4 mg PO once iw Intake: 16:05 PO: 20ml (Water); Total: 20ml. iw Outcome: 14:46 Decision to Hospitalize by Provider. pm1 16:43 Admitted to Med/surg accompanied by joyce, via stretcher, room 225, with chart, Report iw called to SAMAN Aguilera 16:43 Condition: good 16:43 Patient's length of stay in the Emergency Department was greater than 2 hours. waiting for reflex orders, waiting for Dr. Alva's length of stay extended due to 16:48 Patient left the ED. iw Signatures: Dispatcher [employer] Luly Nation, RN RN Delaney Avelar Irene, RN RN Casey Castillo RN RN hj Kennedy Huang, LINING CUTTER LINING CUTTER pm1 Pratik, Radha 5 Katie Carranza sb2 Corrections: (The following items were deleted from the chart) 11:14 11:13 Pulse 97bpm; Resp 18bpm; Pulse Ox 98% RA; Temp 97.8F Temporal; 88 kg; Height 5 hj ft. 5 in.; BMI: 32.2; Pain 10/10; hj 12:10 11:37 Patient did not have IV access during this emergency room visit. iw iw 16:44 15:53 BP 167 / 74; Pulse 75bpm; Resp 16bpm; Pulse Ox 98% RA; iw iw 16:47 14:06 Musculoskeletal: iw iw
--- NOTE | 2018-01-01 14:47 | EDPHYS ---
Physician Documentation [facility] Name: Apoorva Christie Age: 67 yrs Sex: Female : 1950 Arrival Date: 01/01/2018 Time: 11:03 Bed 17 Private MD: Chapin Arias R ED Physician Hector Acuna HPI: 01/01 12:07 This 67 yrs old Female presents to ER via Ambulatory with complaints of Left pm1 Ankle Injury. 12:07 The patient presents with an injury, pain. The complaints affect the left ankle. Onset: pm1 The symptoms/episode began/occurred today, at 03:00. Context: The problem was sustained at home, resulted from the patient falling, while walking, The patient is unable to bear weight. Associated signs and symptoms: Pertinent positives: swelling, Pertinent negatives: numbness, tingling. Modifying factors: The symptoms are alleviated by nothing, the symptoms are aggravated by movement. Severity of symptoms: in the emergency department the symptoms are unchanged. The patient has not experienced similar symptoms in the past. Patient slipped on some water in the restroom and injured her left ankle. When patient fell she hit the left backside of her head. No LOC or vomiting. No neck pain. Historical: - Allergies: 11:12 codeine sulfate; hj - Home Meds: 11:12 Novolin N Sub-Q [Active]; amlodipine 10 mg tab [Active]; lisinopril 40 mg Oral tab hj [Active]; aspirin 81 mg Oral chew [Active]; atorvastatin 20 mg Oral tab 1 tab once daily [Active]; carvedilol 6.25 mg Oral tab [Active]; donepezil 5 mg Oral tab 1 tab once daily [Active]; Lantus 100 unit/mL Sub-Q soln [Active]; - PMHx: 11:12 brain blockage; Cirrhosis; CVA; Diabetes - IDDM; Hypertension; meningitis; progressive hj tremors; - PSHx: 11:12 Cholecystectomy; Knee surgery; ; Hysterectomy; hj - Immunization history:: Adult Immunizations up to date. - Social history:: Smoking status: Patient/guardian denies using tobacco, Patient/guardian denies using alcohol. - Immunization history: Last tetanus immunization: unknown. - Ebola Screening: : Patient negative for fever greater than or equal to 101.5 degrees Fahrenheit, and additional compatible Ebola Virus Disease symptoms Patient denies exposure to infectious person Patient denies travel to an Ebola-affected area in the 21 days before illness onset. ROS: 12:11 Constitutional: Negative for fever, chills, and weight loss, Eyes: Negative for injury, pm1 pain, redness, and discharge, ENT: Negative for injury, pain, and discharge, Neck: Negative for injury, pain, and swelling, Cardiovascular: Negative for chest pain, palpitations, and edema, Respiratory: Negative for shortness of breath, cough, wheezing, and pleuritic chest pain, Abdomen/GI: Negative for abdominal pain, nausea, vomiting, diarrhea, and constipation, Back: Negative for injury and pain, : Negative for injury, bleeding, discharge, and swelling. 12:11 Skin: Negative for rash, and discoloration. 12:11 Neuro: Negative for headache, weakness, numbness, tingling, and seizure. 12:11 MS/extremity: Positive for pain, swelling, of the left leg and left ankle, Negative for paresthesias, tingling. 12:11 Skin: Positive for of the right side of the back of head, contusion. Exam: 12:11 Constitutional: This is a well developed, well nourished patient who is awake, alert, pm1 and in no acute distress. 12:11 Eyes: Pupils equal round and reactive to light, extra-ocular motions intact. Lids and lashes normal. Conjunctiva and sclera are non-icteric and not injected. Cornea within normal limits. Periorbital areas with no swelling, redness, or edema. ENT: Nares patent. No nasal discharge, no septal abnormalities noted. Tympanic membranes are normal and external auditory canals are clear. Oropharynx with no redness, swelling, or masses, exudates, or evidence of obstruction, uvula midline. Mucous membranes moist. Neck: Trachea midline, no thyromegaly or masses palpated, and no cervical lymphadenopathy. Supple, full range of motion without nuchal rigidity, or vertebral point tenderness. No Meningismus. Chest/axilla: Normal chest wall appearance and motion. Nontender with no deformity. No lesions are appreciated. Cardiovascular: Regular rate and rhythm with a normal S1 and S2. No gallops, murmurs, or rubs. No pulse deficits. Respiratory: Lungs have equal breath sounds bilaterally, clear to auscultation and percussion. No rales, rhonchi or wheezes noted. No increased work of breathing, no retractions or nasal flaring. Abdomen/GI: Soft, non-tender, with normal bowel sounds. No distension or tympany. No guarding or rebound. No evidence of tenderness throughout. Back: No spinal tenderness. No costovertebral tenderness. Full range of motion. Skin: Warm, dry with normal turgor. Normal color with no rashes, no lesions, and no evidence of cellulitis. 12:11 Head/face: Exam is negative for abrasion(s), castaneda signs, raccoon eyes, Noted is no obvious of injury or deformity except tenderness, of the right side of the back of head. 12:11 Musculoskeletal/extremity: Extremities: grossly normal except: noted in the left ankle: swelling, tenderness. 12:11 Neuro: Orientation: is normal, Motor: is normal. Vital Signs: 11:13 BP 158 / 100; Pulse 97; Resp 18; Temp 97.8(TE); Pulse Ox 98% on R/A; Weight 88 kg; hj Height 5 ft. 5 in. (165.10 cm); Pain 10/10; 12:58 BP 167 / 59; Pulse 84; Resp 16; Pulse Ox 100% on R/A; iw 14:06 BP 181 / 82; Pulse 74; Resp 16; Pulse Ox 97% on R/A; Pain 5/10; iw 15:53 BP 167 / 74; Pulse 75; Resp 16; Temp 97.2(TE); Pulse Ox 98% on R/A; Pain 4/10; iw 11:13 Body Mass Index 32.28 (88.00 kg, 165.10 cm) Mason Coma Score: 11:15 Eye Response: spontaneous(4). Verbal Response: oriented(5). Motor Response: obeys iw commands(6). Total: 15. Trauma Score (Adult): 11:15 Eye Response: spontaneous(1); Verbal Response: oriented(1); Motor Response: obeys iw commands(2); Systolic BP: > 89 mm Hg(4); Respiratory Rate: 10 to 29 per min(4); Denise Score: 15; Trauma Score: 12 14:06 Eye Response: spontaneous(1); Verbal Response: oriented(1); Motor Response: obeys iw commands(2); Systolic BP: > 89 mm Hg(4); Respiratory Rate: 10 to 29 per min(4); Denise Score: 15; Trauma Score: 12 MDM: 11:25 Patient medically screened. pm1 12:19 Data reviewed: vital signs. Data interpreted: Pulse oximetry: on room air is 98 %. pm1 Interpretation: normal. 12:41 Physician consultation: Dago Contreras MD was called at 12:35, was contacted at 12:35, pm1 regarding consult, patient's condition, and will see patient Informed him that the reduction will be performed in the ER by me and Dr. Acuna. 14:39 Physician consultation: Dago Contreras MD reduction of left tibiotalar dislocation and pm1 trimalleolar fracture completed by Dr. Contreras. Patient's left foot neurovascularly intact. 14:45 Counseling: I had a detailed discussion with the patient and/or guardian regarding: the pm1 historical points, exam findings, and any diagnostic results supporting the discharge/admit diagnosis, the need for further work-up and treatment in the hospital, to return to the emergency department if symptoms worsen or persist or if there are any questions or concerns that arise at home. 14:45 Physician consultation: Chapin Arias MD was contacted at 14:45, regarding admission, pm1 would like admission per Dr. Renan Carrero MD out to the hospitalist until 1900 today. 14:51 Physician consultation: Renan Carrero MD was contacted at 14:51, regarding admission, pm1 patient's condition, in the emergency department to see patient at 14:51. 01/01 12:55 Order name: Basic Metabolic Panel pm1 01/01 12:55 Order name: CBC with Diff pm1 01/01 12:55 Order name: LFT's pm1 01/01 12:55 Order name: PT-INR; Complete Time: 14:39 pm1 01/01 12:55 Order name: Ptt, Activated; Complete Time: 14:39 pm1 01/01 12:56 Order name: Basic Metabolic Panel; Complete Time: 14:39 EDMS 01/01 12:56 Order name: CBC with Automated Diff; Complete Time: 13:22 EDMS 01/01 12:56 Order name: Liver (Hepatic) Function; Complete Time: 14:39 EDMS 01/01 15:17 Order name: CBC with Automated Diff EDMS 01/01 15:17 Order name: CBC with Automated Diff EDMS 01/01 15:17 Order name: Comprehensive Metabolic Panel EDMS 01/01 15:17 Order name: Comprehensive Metabolic Panel EDMS 01/01 15:35 Order name: Hemoglobin A1c EDMS 01/01 15:35 Order name: Hemoglobin A1c EDMS 01/01 11:15 Order name: Ankle Left 3 View XRAY; Complete Time: 12:24 hj 01/01 11:49 Order name: CT Head C Spine; Complete Time: 12:31 pm1 01/01 12:32 Order name: IV Saline Lock; Complete Time: 12:41 pm1 01/01 12:55 Order name: XRAY Chest (1 view); Complete Time: 14:39 pm1 01/01 12:55 Order name: EKG; Complete Time: 12:56 pm1 01/01 13:13 Order name: Ankle Left 2 View XRAY; Complete Time: 14:39 gs 01/01 14:46 Order name: Ankle Left 2 View XRAY; Complete Time: 15:39 pm1 01/01 15:17 Order name: CONS Physician Consult EDCT 01/01 15:17 Order name: Consistent Carb (ADA) 1800 Rob EDCT 01/01 15:17 Order name: NPO EDCT 01/01 12:32 Order name: Splint - Ankle: Posterior; Complete Time: 13:51 pm1 01/01 12:32 Order name: Ankle Splint: Orthoglass: Stirrup; Complete Time: 13:51 pm1 01/01 12:55 Order name: EKG - Nurse/Tech; Complete Time: 15:08 pm1 01/01 12:55 Order name: Labs collected and sent; Complete Time: 13:03 pm1 Administered Medications: 11:59 Drug: [place] 10 mg-325 mg 1 tabs Route: PO; iw 12:20 Drug: Dilaudid 1 mg Route: IVP; Site: left antecubital; dm5 12:41 CANCELLED (Changed to dilaudid): morphine 4 mg IVP once pm1 12:55 Drug: Zofran 4 mg Route: IVP; Site: left antecubital; iw 13:10 Drug: Dilaudid 1 mg Route: IVP; Site: left antecubital; iw 13:51 Not Given (Duplicate Order): Zofran 4 mg PO once iw Disposition: 01/02 10:12 Co-signature as Attending Physician, Hector Acuna MD. Disposition: 01/01/18 14:46 Hospitalization ordered by Renan Carrero for Observation. Preliminary diagnosis is Trimalleolar fracture of lower leg - left. - Bed requested for Telemetry/MedSurg (observation). - Status is Observation. iw - Condition is Stable. - Problem is new. - Symptoms have improved. UTI on Admission? No Signatures: Dispatcher [employer] EDMS Luly Diana RN RN dm5 Maddie Dove RN RN iw Gennaro Christie em1 Casey Castillo RN RN hj Kennedy Huang, TERRITORY SERVICE REPRESENTATIVE TERRITORY SERVICE REPRESENTATIVE pm1 Hector Acuna MD MD Corrections: (The following items were deleted from the chart) 01/01 12:41 12:40 morphine 4 mg IVP once ordered. pm1 pm1 15:53 14:46 Hospitalization Ordered by Renan Carrero MD for Observation. Preliminary diagnosis em1 is Trimalleolar fracture of lower leg - left. Bed requested for Telemetry/MedSurg (observation). Status is Observation. Condition is Stable. Problem is new. Symptoms have improved. UTI on Admission? No. pm1 16:48 15:53 01/01/2018 14:46 Hospitalization Ordered by Renan Carrero MD for Observation. iw Preliminary diagnosis is Trimalleolar fracture of lower leg - left. Bed requested for Telemetry/MedSurg (observation). Status is Observation. Condition is Stable. Problem is new. Symptoms have improved. UTI on Admission? No. em1
[2018-01-01] MEDS ORDERED: ACETAMINOPHEN 500 MG TAB PO PRN (15:12)
[2018-01-01] MEDS ORDERED: ONDANSETRON 4 MG/2 ML VIAL IV PRN (15:12)
--- NOTE | 2018-01-01 15:35 | RAD REPORT ---
EXAM DESCRIPTION: RAD - Ankle Left 2 View - 01/01/2018 3:26 pm CLINICAL HISTORY: Ankle fracture FINDINGS: Splint immobilizes fracture dislocation of the left ankle. There is better alignment of th e tibiotalar joint
--- NOTE | 2018-01-01 16:44 | P.CNS ---
Date of Consult: 01/01/18 Reason for Consult: Fracture/dislocation Left Ankle, closed, bimalleolar Requesting Physician: Renan Carrero History of Present Illness: This 67-year-old female slipped and fell twisting her left ankle while mopping at home at 3 AM. She could not ambulate and had trouble contacting family members and presented to the emergency room at approximately 11 oclock on 2017. I was contacted and after inspecting x-rays authorized a reduction attempt which was done with 1 mg Dilaudid IV. Checking online reduction films, the reduction was not maintained during splinting and I came in to perform a second reduction. With the second reduction with an additional milligram of Dilaudid given, reduction was quite complete, but again in splinting, it subluxed slightly in the lateral direction for a partial dislocation or subluxation. With the second reduction capillary filling was brisk and the toes were german.The patient has been admitted for elevation and icing with plans for ORIF when schedule permits tomorrow. Risks and benefits were discussed with all questions answered and the daughter and patient have elected to proceed with ORIF left ankle bimalleolar fracture dislocation. Allergies codeine Allergy (Verified 08/31/17 22:20) Shortness of breath Home Medications: Carvedilol [Coreg*] 6.25 mg PO BID 08/01/17 Clopidogrel Bisulfate [Plavix*] 75 mg PO DAILY 08/01/17 Insulin Aspart [Novolog] 35 unit SQ TID 08/01/17 Insulin Glargine,Hum.rec.anlog [Lantus] 30 unit SQ BID 08/01/17 Lisinopril [Zestril] 40 mg PO DAILY 08/01/17 Amlodipine [Norvasc*] 5 mg PO DAILY #90 tab 08/04/17 Atorvastatin Calcium [Lipitor] 20 mg PO DAILY #90 tab 08/04/17 Aspirin [Aspir-Low] 1 tab PO DAILY 09/01/17 Donepezil [Aricept*] 1 tab PO DAILY 09/01/17 - Past Medical/Surgical History Diabetic: Yes -: HTN -: DM -: Stroke (JUNE 2017) -: Seizures -: Progressive Tremors -: Sweets Syndrome 2001 -: Stroke (2005) -: Gallbladder Removed -: Knee Replacement -: Hysterectomy -: Bunionectomy Right Side -: Carptal Tunnel Surgery Right Side - Family History Mother Medical History: Cancer Father Notes: Heart Attack Sister Medical History: Diabetes Brothers Medical History: Diabetes Notes: Heart Attack - Social History Smoking Status: Unknown if ever smoked Alcohol use: No CD- Drugs: No Caffeine use: Yes Review of Systems 10-point ROS is otherwise unremarkable Physical Examination General: Alert, Oriented x3, Cooperative HEENT: Atraumatic, Normocephalic Neck: Supple Cardiovascular: Regular rate/rhythm Gastrointestinal: Normal bowel sounds, Soft and benign Integumentary: No rashes, No breakdown, No significant lesion Neurological: Sensation intact External genitalia: Deferred Rectal: Deferred Laboratory Data (last 24 hrs) 01/01/18 13:18: Sodium 140, Potassium 3.4 L, BUN 23 H, Creatinine 1.00, Glucose 258 H, Total Bilirubin 0.3, AST 17, ALT 15, Alkaline Phosphatase 108 01/01/18 12:50: PT 11.6, INR 0.98, APTT 29.1 01/01/18 12:50: WBC 11.8 H, Hgb 14.4, Hct 43.5, Plt Count 243 Imagings Data: Second reduction improve positioning of left ankle talus closer to the fully reduced position with brisk capillary return. - Problems (1) Displaced bimalleolar fracture of left ankle Current Visit: Yes Status: Acute Plan: Patient is admitted for bed rest with elevation and icing of the left ankle, and schedule for ORIF left ankle bimalleolar fracture dislocation tomorrow after medical clearance. Qualifiers: Encounter type: initial encounter
--- NOTE | 2018-01-01 16:48 | HP ---
Date of Admission: 01/01/2018 Code Status: Full. Chief Complaint: Mechanical fall and left ankle pain. Consultants: Dr. Contreras with Orthopedics. Primary Care Physician: Dr. Patel. History Of Present Illness: The patient is a 67-year-old female with a past medical history of hypertension, diabetes, hyperlipidemia, history of CVA and obesity, who was in her usual state of health until day of admission when the patient was mopping the floor when she had a slip and fall. The patient hurt her left ankle, had pain, which was constant, moderate, progressively worsening. Denies any loss of consciousness. She did hit her head. The patient states that she went to sleep after the incident; however, pain woke her up again and then after being evaluated by her daughter, she was brought into the ER. The patient was unable to bear weight on her foot. She said she crawls to bed. When the patient came into the ER, her vital signs showed elevated blood pressure. She was afebrile. Her workup revealed a fracture of a trimalleolar left ankle fracture. The patient was given medications for pain. Her blood pressure did not improve. She did have some desaturations and was placed on oxygen. The patient was then seen by Dr. Contreras in the ER, who recommended surgery in the a.m. Of note, the patient does take Plavix for her CVA. However, her last dose was yesterday in the morning. She did not take her dose this morning. Past Medical History: Hypertension, hyperlipidemia, diabetes, insulin dependent , history of cerebrovascular accident. Past Surgical History: The patient denies any surgeries. Allergies: TO CODEINE. Medications: List reviewed. 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 Independent in her activities of daily living. Denies any tobacco use. Rarely drinks any alcohol. No illicit drug use. Does not use any assistive ambulatory devices. Family History: Positive for diabetes, hypertension, and hyperlipidemia. Review of Systems: An 11-point system reviewed, negative except as per HPI. Physical Examination: Vital Signs: Blood pressure 158/100, pulse 97, respirations 18, temperature 97.8, O2 of 98% on room air. General: Awake, alert, oriented x3. Elderly female, ill appearing in pain. HEENT: Normocephalic, atraumatic. PERRLA. Dry mucous membranes. Oropharynx is clear. Normal dentition. Conjunctiva is anicteric. Neck: Supple. No JVD. Trachea midline. CV: S1, S2. Regular rate and rhythm. Peripheral pulses are present bilaterally. Respiratory: Moving air well bilaterally. No wheezing or stridor. No use of accessory muscles. Gastrointestinal: Abdomen is soft, nontender, nondistended. Positive bowel sounds. No guarding or rigidity. Extremities: No clubbing, cyanosis or edema. No calf tenderness. Neuro: Cranial nerves 2 through 12 intact grossly. No focal neurological deficit. Speech is normal. Musculoskeletal: Left ankle tenderness to palpation. Decreased range of motion. Skin: No rashes. Normal skin turgor. Psych: Mood is okay. Affect is full. Insight and judgment are good. Laboratory Data: WBC 11.8, H and H of 14.4 and 43.5, platelets 243, neutrophils 83%. INR 0.98. Sodium 140, potassium 3.4, chloride 101, CO2 of 28 , BUN 23, creatinine 1, glucose 258, calcium 9.2, albumin 3. Imaging Studies: Left ankle x-ray, personally reviewed, shows trimalleolar fracture. Large posterior malleolar fracture fragment is present with marked displacement. Tibiotalar dislocation is present. CT head and spine, no acute intracranial abnormality. Cervical fracture not visualize. The patient does have microvascular ischemic disease. Chest x-ray, personally reviewed, shows no acute abnormalities. Left ankle 2 view after reduction shows splinted mobilizers, previously described fracture. Dislocation of the left ankle. Assessment And Plan: A 67-year-old female with: 1. Left trimalleolar fracture and tibiotalar dislocation. The patient will require surgical intervention. Dr. Contreras on board. Recommends surgery. The patient is cleared from a medical standpoint for surgery in a.m. Has not had her Plavix since yesterday morning. We will continue with fall precautions, pain control. The patient has been splinted. 2. Essential hypertension, stable. Resume home medications as appropriate, was slightly elevated due to pain, has come down with pain medications. 3. Diabetes mellitus type 2, insulin requiring. We will start on sliding- scale insulin. Check hemoglobin A1c. Monitor blood glucose levels. 4. Hyperlipidemia. Continue home medications. 5. History of stroke. Plavix will be held. Plan: Admit the patient to Med-Surg, place as inpatient. Anticipate surgery in a.m. Transfer service to Dr. Arias in . /TASHA Voice ID: [id number]
[2018-01-01] MEDS: NA CHLORIDE 0.9% 1,000 ML IV SCH (17:28)
[2018-01-01] MEDS: INSULIN -REGULAR HUMAN 50 UNIT/0.5 ML ML SQ SCH ×2 (17:29→20:24)
[2018-01-01] MEDS: CARVEDILOL 6.25 MG TAB PO SCH (20:21)
[2018-01-01] MEDS ORDERED: POTASSIUM 25 MEQ EFFERV TAB PO ONE (21:00)
[2018-01-01] MEDS ORDERED: INSULIN GLARGINE 100 UNITS/ML SQ SCH (21:00)
[2018-01-01] MEDS: MORPHINE 4 MG/ML SYR IV PRN (22:36)
[2018-01-02] MEDS: NA CHLORIDE 0.9% 1,000 ML IV SCH ×2 (00:10→12:00)
[2018-01-02] MEDS: MORPHINE 4 MG/ML SYR IV PRN ×3 (02:07→11:30)
[2018-01-02 02:53] LABS: Urine Appearance CLEAR; Urine Bilirubin NEGATIVE (NEG); Urine Blood TRACE (NEG); Urine Color YELLOW; Urine Glucose 3+ (NEG); Urine Protein 3+ (NEG); Urine Specific Gravity >=1.030 (1.005-1.030); Urine pH 5.5 (5.0-7.0)
[2018-01-02 03:01] LABS: Urine Microscopic Reflex ORDER UMIC
[2018-01-02 04:04] LABS: Urine Bacteria <20 /HPF (<20); Urine Culture Reflex Order REFLEXED; Urine RBC <5 /HPF (NONE SEEN); Urine Yeast PRESENT (NONE SEEN)
[2018-01-02 05:24] LABS: Potassium 4.1 mmol/L (3.5-5.1)
--- NOTE | 2018-01-02 07:09 | EKG ---
Test Date: 2018-01-01 Test Time: 15:02:28 Cuprous Chloride Operator: SHIRLEY MEASUREMENT RESULTS: Intervals: Rate: 82 AL: 144 QRSD: 76 QT: 404 QTc: 472 [place]: P: 42 AL: 144 QRS: -17 T: 47 INTERPRETIVE STATEMENTS: Normal sinus rhythm Cannot rule out Anterior infarct, age undetermined T wave abnormality, consider lateral ischemia Abnormal ECG Compared to ECG 08/31/2017 17:01:30 Left-axis deviation no longer present Myocardial infarct finding still present T-wave abnormality still present Possible ischemia still present Electronically Signed On 01-02-18 07:08:26 CDT by Andrade Titus
[2018-01-02] MEDS: INSULIN -REGULAR HUMAN 50 UNIT/0.5 ML ML SQ SCH ×5 (07:30→21:00)
[2018-01-02] MEDS ORDERED: NPH (HUMAN) 100 UNITS/ML INSULIN SQ SCH (07:30)
--- NOTE | 2018-01-02 07:44 | EKG ---
Test Date: 2018-01-01 Test Time: 15:03:07 Lighting Equipment Operator: SHIRLEY MEASUREMENT RESULTS: Intervals: Rate: 83 IA: 144 QRSD: 76 QT: 522 QTc: 613 [place]: P: 46 IA: 144 QRS: -14 T: 83 INTERPRETIVE STATEMENTS: Normal sinus rhythm Cannot rule out Anterior infarct, age undetermined Prolonged QT Abnormal ECG Electronically Signed On 01-02-18 07:43:56 CDT by Tod Benjamin
[2018-01-02] MEDS: AMLODIPINE 10 MG TAB PO SCH (08:51)
[2018-01-02] MEDS: LISINOPRIL 20 MG TAB PO SCH (08:51)
[2018-01-02] MEDS: CARVEDILOL 6.25 MG TAB PO SCH ×2 (08:52→17:00)
[2018-01-02] MEDS ORDERED: INSULIN GLARGINE 100 UNITS/ML SQ SCH (09:00)
[2018-01-02] MEDS: DONEPEZIL HCL 5 MG TAB PO SCH (09:00)
[2018-01-02] MEDS: ATORVASTATIN 20 MG TAB PO SCH (09:00)
[2018-01-02] MEDS ORDERED: MORPHINE 2 MG/ML SYR IV ONE (12:04)
[2018-01-02] MEDS ORDERED: NA CHLORIDE 0.9% 1,000 ML ONE (15:41)
--- NOTE | 2018-01-02 15:43 | CON ---
Date of Consultation: 01/02/[address] Arias's service on 01/01/2018. I saw the patient on 01/02/2018. Reason For Consultation: Cardiac clearance for surgery for an ankle fracture. History Of Present Illness: Ms. Christie is a 67-year-old, has a history of hypertension, diabetes, dyslipidemia, dementia, has had meningitis, cerebrovascular disease before, has a history of cirrhosi s, came in with right ankle fracture, was hypertensive when she came in with her pain at 194/80, had a glucose of 291, white count of 11.8. Her EKG showed nonspecific changes with possible old anterior VA. The patient denied any syncope or chest pain. Denied any palpitation. Denied any cardiac symp toms. Denied any previous cardiac history. Apparently, has had stress tests in the past that were n egative. Past Medical History: Includes hypertension, diabetes, dyslipidemia, dementia, cirrhosis, CVD, histo ry of meningitis in the past. Allergies: SHE IS ALLERGIC TO CODEINE. Review of Systems: Negative. Social History: Negative. Family History: Noncontributory. Medications: At home include insulin, lisinopril, Norvasc, aspirin, Lipitor, Coreg, Aricept, and met formin. Physical Examination: Vital Signs: Stable. She was hypertensive 194/85. HEENT: Negative. Neck: Supple with no bruit. Chest: Clear to auscultation and percussion. Cardiac: Revealed a regular rhythm and rate with S4 gallops. No murmurs or rubs. Abdomen: Benign. Extremities: Revealed no clubbing, cyanosis, or edema. Diagnostic Data: As stated earlier, chest x-ray was negative. Impression And Plan: 1.The patient with hypertension, poorly controlled, abnormal echocardiogram, multiple cardiac risk f actors, previous history of negative stress test. No cardiac symptoms. I will suffice with an echoc ardiogram today before her surgery, and if this is normal, she can be cleared. 2.Diabetes. 3.Dyslipidemia. 4.Dementia. 5.History of cirrhosis and cerebrovascular disease. Regarding her blood pressure, certainly pain co ntrol may help with the pressure for now. If her pressure remains poorly controlled, we can always g o up on the dose of Coreg or Norvasc or even add a slight diuretic. EMILY/TASHA Voice ID: [id number] Report ID: [id number]
[2018-01-02] MEDS ORDERED: KETOROLAC 30 MG/ML INJ ONE (15:47)
[2018-01-02] MEDS ORDERED: CEFAZOLIN/SWI 1gm 1 GM/10 ML SYR ONE (15:47)
[2018-01-02] MEDS ORDERED: FENTANYL CITR 100 MCG/2 ML ONE ×2 (16:12→18:36)
[2018-01-02] MEDS ORDERED: PROPOFOL 200 MG/20 ML VIAL IV ONE (16:12)
[2018-01-02] MEDS ORDERED: Phenylephrine HCl 10 MG/ML 1 ML VIAL ONE (17:13)
[2018-01-02] MEDS ORDERED: DEXAMETHASONE 4 MG/ML VIAL ONE (17:14)
[2018-01-02] MEDS ORDERED: ONDANSETRON HCL 40 MG/20 ML VIAL ONE (17:16)
[2018-01-02] MEDS ORDERED: Ringers Lactate 1,000 ML IV ONE (18:05)
[2018-01-02] MEDS ORDERED: BUPIVACAINE 0.25% PF 10 ML VIAL ONE (18:59)
--- NOTE | 2018-01-02 19:15 | RAD REPORT ---
EXAM DESCRIPTION: RAD - Ankle Left 2 View - 01/02/2018 7:08 pm FINDINGS: Portable C-arm was utilized during fluoroscopic assisted fracture fixation hardware placem ent. Approximately 27 spot images were submitted. Fluoro time was 0.4 minutes.
[2018-01-02] MEDS ORDERED: INSULIN -REGULAR HUMAN 50 UNIT/0.5 ML ML ONE (19:19)
--- NOTE | 2018-01-02 19:32 | P.BOP ---
Preoperative diagnosis: Bimalleolar fracture/dislocation left ankle Postoperative diagnosis: same Primary procedure: ORIF LEFT ANKLE BIMALLEOLAR FRACTURE DISLOCATION Room Maid: Dago Contreras Estimated blood loss: <5mL Specimen: ARTICULAR FRAGMENTS MEDIAL MALLEOLUS REMOVED LOOSE FRAGMENTS Findings: COMMINUTED FRACTURE MEDIAL MALLEOLUS w/ARTICULAR FRAGMENTS Anesthesia: General Implants: 6 HOLE1/3TUBULAR PLATE+ 6 3.5CORTICAL & 2 4.0mmCANNULATED CANCELLOUS SCREWS Fluids & blood products: INJECTED 20 mL 0.25% [place] Transferred to: Recovery Room Condition: Good
[2018-01-02] MEDS ORDERED: MEPERIDINE HCL 50 MG/ML AMP IV ONE ×3 (19:39→19:49)
[2018-01-02] MEDS ORDERED: MEPERIDINE HCL 50 MG/ML AMP ONE (19:44)
[2018-01-02] MEDS ORDERED: MAGNESIUM HYDROXIDE 8% 30 ML PO PRN (20:18)
[2018-01-02] MEDS ORDERED: DOCUSATE NA 100 MG CAP PO PRN (20:18)
[2018-01-02] MEDS ORDERED: GLUCAGON 1 MG/VIAL IM PRN (21:09)
[2018-01-02] MEDS ORDERED: D50W 25 GM/50 ML SYRINGE IV PRN (21:09)
--- NOTE | 2018-01-02 22:49 | PN ---
The patient was seen before surgery. Her blood sugar was elevated. Her blood pressure was elevated. The patient, however, was n.p.o. in view of that the patient received only sliding scale insulin. However, after surgery, her medications will be restarted and p.r.n. medications will be also added. BENNETT/TASHA Voice ID: [id number] Report ID: [id number]
[2018-01-02] MEDS: INSULIN GLARGINE 100 UNITS/ML SQ SCH (22:59)
[2018-01-02] MEDS ORDERED: CEFAZOLIN SODIUM 1 GM/VIAL ONE (23:30)
[2018-01-02] MEDS ORDERED: NA CHLORIDE 0.9% 200 ML ONE (23:36)
[2018-01-02] MEDS: CEFAZOLIN/NS 1gm 1 GM/50 ML BAG IVPB SCH (23:53)
[2018-01-03 05:10] LABS: Hematocrit 36.7 % (36.0-45.0)
[2018-01-03] MEDS: CEFAZOLIN/NS 1gm 1 GM/50 ML BAG IVPB SCH (05:27)
[2018-01-03] MEDS: INSULIN -REGULAR HUMAN 50 UNIT/0.5 ML ML SQ SCH ×4 (08:00→21:20)
[2018-01-03] MEDS: ENOXAPARIN 40 MG/0.4 ML SQ SCH (08:53)
[2018-01-03] MEDS: LISINOPRIL 20 MG TAB PO SCH (08:54)
[2018-01-03] MEDS: CARVEDILOL 6.25 MG TAB PO SCH ×2 (08:55→17:16)
[2018-01-03] MEDS: AMLODIPINE 10 MG TAB PO SCH (08:55)
[2018-01-03] MEDS: DONEPEZIL HCL 5 MG TAB PO SCH (08:56)
[2018-01-03] MEDS: ATORVASTATIN 20 MG TAB PO SCH (08:56)
[2018-01-03] MEDS: INSULIN GLARGINE 100 UNITS/ML SQ SCH (17:06)
[2018-01-03] MEDS: MORPHINE 4 MG/ML SYR IV PRN ×2 (18:28→23:48)
--- NOTE | 2018-01-03 20:40 | P.PN ---
Date of Service: 01/03/18 (POD#1) S: THE PATIENT IS MORE ALERT AND RELAXED THIS AFTERNOON WITHOUT COMPLAINTS OF PAIN. SHE PARTICIPATED WITH PHYSICAL THERAPY THIS MORNING AND TRANSFERRED TO STAND AND MOVE 5 STEPS WITH A FRONT-WHEELED WALKER. SECOND SESSION LATER IN THE AFTERNOON FOUND THE PATIENT QUITE PHOBIC AND AFRAID TO PARTICIPATE FULLY WITH PHYSICAL THERAPY, BUT SHE DID MANAGE SIT, STAND, TRANSFER 4. O: AFEBRILE, VSS, HGB 12.7 DOWN FROM 14.4 ON ADMISSION. ON EXAMINATION OF THE LEFT FOOT THE PATIENT DEMONSTRATES ACTIVE FLEXION AND EXTENSION VIGOROUSLY WITH TOES 2, 3, 4, AND 5, AND WEAK DORSIFLEXION OF THE GREAT TOE WITH LIFTING BARELY OFF OF THE SPLINT UNDERNEATH. SENSATION IS INTACT TO LIGHT TOUCH AND PINCH. THERE IS A DEFINITE PALLOR AND COOLNESS TO THE TOES TO SUGGEST UNDER PERFUSION. A DOPPLER WAS UTILIZED PRIOR TO SURGERY TO FIND NO PULSES FOR THE LEFT FOOT, AND ONLY AN EXTREMELY WEAK PULSE WAS FOUND WITH DIFFICULTY FOR THE RIGHT FOOT POSTERIOR TIBIALIS. THIS PATIENT WAS FOUND TO HAVE A DRAMATICALLY UNSTABLE BIMALLEOLAR FRACTURE THAT REMAINED DISLOCATED WITH THE FIRST SUGAR TONG SPLINT IN THE ED. A SECOND REDUCTION WAS CERTAINLY SUCCESSFUL, BUT STILL SUBLUXED 1 CM LATERALLY EVEN WITH A LONG LEG POSTERIOR SPLINT PLUS COAPTATION SPLINT. THE PATIENT AND HER FAMILY GIVE A HISTORY OF HER WALKING a MAXIMUM OF ONE BLOCK ONLY TO HAVE SEVERE ACHING IN BOTH CALVES THAT PREVENTS HER FROM GOING FURTHER. A: STABILIZATION OF THE LEFT ANKLE IN SURGERY WAS CARRIED OUT TO ELIMINATE THE TENDENCY FOR TILT AND EXTERNAL ROTATION THAT SEEMED TO BE INHIBITING THE LIMITED PERIPHERAL VASCULAR PERFUSION FOUND EVEN IN THE RIGHT FOOT. THE PATIENT 'S FRACTURE OCCURRED AT 3 AM AFTER WHICH SHE CRAWLED TO HER BED AND WENT TO SLEEP WITHOUT SPLINTING, SHE COULD REACH NO FAMILY MEMBER BY PHONE. IT WAS 8 HOURS LATER AT 11 AM BEFORE SHE WAS BROUGHT TO THE ED. P: THIS CASE WAS DISCUSSED WITH DR. HARMON WHO HAS RECOMMENDED AN ANGIOGRAM BE SCHEDULED FOR TOMORROW TO DETERMINE IF A REPERFUSION OPTION EXISTS.
--- NOTE | 2018-01-04 03:51 | PN ---
Subjective: The patient is doing well postoperatively. Objective: General: She is afebrile. Chest: Clear. Heart: Regular. Abdomen: Soft. Plan: The patient will be continued on the same management. BENNETT/TASHA Voice ID: [id number] Report ID: [id number]
[2018-01-04] MEDS: MORPHINE 4 MG/ML SYR IV PRN ×4 (04:33→22:15)
[2018-01-04 05:22] LABS: Hematocrit 34.7 % (36.0-45.0)
[2018-01-04] MEDS: ENOXAPARIN 40 MG/0.4 ML SQ SCH (08:09)
[2018-01-04] MEDS: INSULIN -REGULAR HUMAN 50 UNIT/0.5 ML ML SQ SCH ×4 (08:45→20:49)
[2018-01-04] MEDS: LISINOPRIL 20 MG TAB PO SCH (08:46)
[2018-01-04] MEDS: INSULIN GLARGINE 100 UNITS/ML SQ SCH ×2 (08:46→20:48)
[2018-01-04] MEDS: CARVEDILOL 6.25 MG TAB PO SCH ×2 (08:47→17:17)
[2018-01-04] MEDS: AMLODIPINE 10 MG TAB PO SCH (08:48)
[2018-01-04] MEDS: DONEPEZIL HCL 5 MG TAB PO SCH (09:00)
[2018-01-04] MEDS ORDERED: CLOPIDOGREL 75 MG TABLET PO SCH (09:00)
[2018-01-04] MEDS ORDERED: ASPIRIN 81 MG CHEWABLE TABLET PO SCH (09:00)
--- NOTE | 2018-01-04 09:00 | ECHO ---
HEIGHT: 5 ft 5 in WEIGHT: 189 lb 3.2 oz DATE OF STUDY: 01/03/[address]: Andrade Titus MD 2-DIMENSIONAL: YES M.MODE: YES DOPPLER: YES COLOR FLOW: YES TDS: NO PORTABLE: NO DEFINITY: NO BUBBLE STUDY: NO DIAGNOSIS: ABNORMAL EKG CARDIAC HISTORY: CATHERIZATION: NO SURGERY: NO PROSTHETIC VALVE: NO PACEMAKER: NO MEASUREMENTS (cm) DIASTOLIC (NORMALS) SYSTOLIC (NORMALS) IVSd 1.2 (0.6-1.2) LA Diam 3.9 (1.9-4.0) LVEF 60-65% LVIDd 4.1 (3.5-5.7) LVIDs 2.1 (2.0-3.5) %FS % LVPWd 1.2 (0.6-1.2) Ao Diam 2.7 (2.0-3.7) 2 DIMENSIONAL ASSESSMENT: RIGHT ATRIUM: NORMAL LEFT ATRIUM: NORMAL RIGHT VENTRICLE: NORMAL LEFT VENTRICLE: NORMAL TRICUSPID VALVE: NORMAL MITRAL VALVE: NORMAL PULMONIC VALVE: NORMAL AORTIC VALVE: SCLEROSIS PERICARDIAL EFFUSION: NONE AORTIC ROOT: NORMAL LEFT VENTRICULAR WALL MOTION: NORMAL DOPPLER/COLOR FLOW: NORMAL COMMENTS: NORMAL LEFT VENTRICULAR SIZE AND FUNCTION. AORTIC SCLEROSIS. NO WALL MOTION ABNORMALITY. NO EFFUSION. TECHNOLOGIST: Blair DEL TORO
[2018-01-04] MEDS ORDERED: HEPA 1000U/500MLS 2,000 UNIT/1,000 ML BAG IV ONE (12:12)
[2018-01-04] MEDS ORDERED: NA CHLORIDE 0.9% 500 ML ONE (12:13)
[2018-01-04] MEDS ORDERED: MIDAZOLAM HCL 2 MG/2 ML INJ ONE (12:13)
[2018-01-04] MEDS ORDERED: FENTANYL CITR 100 MCG/2 ML ONE (12:13)
[2018-01-04] MEDS ORDERED: MORPHINE 4 MG/ML SYR ONE (14:19)
[2018-01-04] MEDS ORDERED: DONEPEZIL HCL 5 MG TAB PO SCH (21:00)
[2018-01-04] MEDS ORDERED: ATORVASTATIN 20 MG TAB PO SCH (21:00)
--- NOTE | 2018-01-05 00:08 | OP ---
Date of Procedure: 01/02/2018 Surgeon: Dago Contreras MD Roll Hand: Dr. Charli Contreras. Preoperative Diagnosis: Bimalleolar fracture dislocation, left ankle. Postoperative Diagnosis: Bimalleolar fracture dislocation, left ankle. Indications: This patient came to the emergency room yesterday with a fracture dislocation of her le ft ankle. The initial reduction attempt was unsuccessful by the emergency room personnel, and I pres ented to revise the reduction. The reduction was effected after 1 g of Dilaudid was given. The lauri ent tolerated the procedure well, and a posterior long-leg splint and smaller coaptation splint was a pplied to stabilize the reduction. The patient had reduced circulation in the left lower extremity, felt to be related to the dislocation. Dorsal pedis pulse and posterior tibialis pulses were absent to Doppler exam. The reduction allowed the toes to pink up and increased circulation was felt to hav e occurred with the reduction. The patient was admitted to the hospital and is brought back to [facility] on the following day for ORIF of the left ankle. Technique: The patient was brought to the operating room. After time-out, all pertinent facts were discussed. It was decided to proceed with the ORIF of the left ankle. It was noted that the left fo ot was somewhat blanched and mottled. The Doppler was requested, and no pulses could be found on the left foot. That foot was out of splint. The Doppler exam of the right lower extremity revealed the dorsal pedis pulse was absent on that side, and a posterior tibialis pulse was encountered. It was felt that the dislocation and subluxation of the ankle was interfering with compromised circulation f or the left lower extremity that was similar to that in the right lower extremity. Therefore, stabil ization further allowed increased perfusion of the left foot. The patient had a tourniquet placed in position. The prepping and draping was carried out in the usual manner. Incisions were drawn both on medial and lateral malleoli. The exposure of the medial malleolus was primary. An incision was m leann through the skin and subcutaneous tissue, and then blunt and sharp dissection was utilized to exp ose the fracture site. The medial malleolar fragment was found to be comminuted with a thin odd shap ed fragment that had articular cartilage on it that could not be reduced. That fragment was removed. The remaining medial malleolus fragment was reduced in an anatomic position. Two C wires were passe d in a parallel fashion and then with drilling and insertion of cannulated cancellous screws 40 mm in length, a parallel compression reduction was accomplished for the medial malleolus. A latex gauze w as soaked in saline and packed into the medial incision. The lateral incision was then made over the midportion of the fibula exposing a short oblique fracture. A 6 hole one-third tubular plate was be nt and shaped to fit the lateral malleolus. Two screws were placed distal to the fracture site with good purchase, and 4 screws were placed proximal to the fracture site after drilling and tapping and seeing on C-arm that the length was appropriate in the area of the articular joint. The reduction wa s excellent. The mortise view showed even spaces on 3 sides of the talar dome. The wounds were irri gated profusely and closed in layers using 2-0 Vicryl for fascial and subcutaneous layers with interr upted sutures and skin fanny for the skin. A posterior splint was applied after Xeroform gauze and flaps were applied over each incision. Estimated blood loss was less than 5 mL. The tourniquet was up for approximately 90 minutes. Internal fixation was accomplished with 2 cannulated 40 mm cancell ous screws, and a 6-hole one third tubular plate with 3.5 mm cortical screws x6. The patient was taken to the recovery room having tolerated the procedure well. MARYCHUY/TASHA Voice ID: [id number] Report ID: [id number]
--- NOTE | 2018-01-05 00:23 | OP ---
Surgeon: Andrade Titus MD Indication And Procedure: Admitted as an inpatient to Dr. Arias on 01/01/2018 for an ankle fracture, underwent surgery by Dr. Contreras. There were some issues regarding peripheral arterial disease, nonh ealing wound, cyanosis of the foot. Postoperatively, we discussed the case together with Dr. Hugo Contreras, and the plan was for an abdominal angiogram with runoff with possible intervention. T he patient is scheduled as an inpatient, given 2 mg of Versed for IV sedation. Right common femoral artery access was obtained using a 6-Rw[place] sheath. A pigtail catheter was advanced above the renals . Abdominal angiogram revealed normal bilateral renal arteries, normal distal aorta, common iliac, e xternal iliac, internal iliac. She had a patent profunda bilaterally, but she had a completely occlu ded SFA on the left side and the right side with reconstitution just above the popliteal with severe disease below the knee bilaterally. 6-[place]wand[place] catheters were used. Complications: None. Blood Loss: 5 cc. Anesthesia: Conscious sedation was 30 minutes. Postoperative Diagnosis: Severe peripheral arterial disease. Plan: Plan for have a surgeon review the films and discuss the possibility of bilateral femoral-popl iteal certainly on the left first. EMILY/TASHA Voice ID: [id number] Report ID: [id number]
--- NOTE | 2018-01-05 00:42 | PN ---
The patient postoperatively is doing well. She is alert. Her blood sugars are still high. However, I increased her insulin. The patient has bilateral significant of proximal arterial disease, for wh [facility] arrangements have been made for transfer to [place] for femoral bypass surgery. Pending that, [place] will be continued on the current management. BENNETT/TASHA Voice ID: [id number] Report ID: [id number]
== END 2018-01-04 22:21 | disposition short-term general hospital (02) | DRG 493 ==
LOC: ER 11:02 → ERHOLD 15:34 → 2ND 16:24 → OBSVTOIN 01-03 07:13
PROVIDERS: ADMIT Internal Medicine; ATTEND Internal Medicine
PROC: 0QSKXZZ Reposition Left Fibula, External Approach (ICD-10-PCS; 2018-01-01)
PROC: 0QSHXZZ Reposition Left Tibia, External Approach (ICD-10-PCS; 2018-01-01)
PROC: 0QSH04Z Reposition Left Tibia with Internal Fixation Device, Open Approach (ICD-10-PCS; 2018-01-02)
PROC: 0QSK04Z Reposition Left Fibula with Internal Fixation Device, Open Approach (ICD-10-PCS; principal; 2018-01-02 15:30)
PROC: B41D1ZZ Fluoroscopy of Aorta and Bilateral Lower Extremity Arteries using Low Osmolar Contrast (ICD-10-PCS; 2018-01-04)
DX: S82.852A Displaced trimalleolar fracture of left lower leg, initial encounter for closed fracture (principal); I70.92 Chronic total occlusion of artery of the extremities; I10 Essential (primary) hypertension; E11.65 Type 2 diabetes mellitus with hyperglycemia; E11.51 Type 2 diabetes mellitus with diabetic peripheral angiopathy without gangrene; E78.5 Hyperlipidemia, unspecified; F03.90 Unspecified dementia, unspecified severity, without behavioral disturbance, psychotic disturbance, mood disturbance, and anxiety; S93.05XA Dislocation of left ankle joint, initial encounter; K74.60 Unspecified cirrhosis of liver; W01.0XXA Fall on same level from slipping, tripping and stumbling without subsequent striking against object, initial encounter; Y92.002 Bathroom of unspecified non-institutional (private) residence as the place of occurrence of the external cause; Y93.E5 Activity, floor mopping and cleaning; Z86.73 Personal history of transient ischemic attack (TIA), and cerebral infarction without residual deficits; I25.2 Old myocardial infarction; Z79.82 Long term (current) use of aspirin; Z79.4 Long term (current) use of insulin; Z88.5 Allergy status to narcotic agent; Z79.02 Long term (current) use of antithrombotics/antiplatelets; E66.9 Obesity, unspecified; Z68.32 Body mass index [BMI] 32.0-32.9, adult
CPT/HCPCS: 36415; 70450; 71045; 72125; 75630; 80048; 80076; 81003; 81015; 82962; 85014; 85018; 85025; 85610; 85730; 87077; 87086; 87088; 87186; 88304; 88311; 93005; 93306; 94760; 96374; 96375; 97163; 99285; C1760; C1893; G0378; J0690; J1170; J1650; J2175; J2250; J2370; J2405; J3010; J7030

== ENCOUNTER 2018-06-14 10:48 | Inpatient (IN) | payer OTHER ==
--- OUTSIDE RECORDS SUMMARY | 2018-06-14 11:09 | XMS REPORT ---
:1950 Author Organization [facility] Address [address] [place] [address] Care Team Providers Name Role Phone KATELYN PALUMBO Unavailable Unavailable MICHAEL BONILLA Unavailable Unavailable ANNIE SCHOFIELD Unavailable Unavailable VALENTÍN CUMMINGS Unavailable Unavailable Problems This patient has no known problems. Allergies, Adverse Reactions, Alerts This patient has no known allergies or adverse reactions. Medications This patient has no known medications. Results Test Description Test Time Test Comments Text Results Atomic Results Result Comments POCT-GLUCOSE METER 2018-06-08 16:38:00 Test Item Value Reference Range Comments POC-GLUCOSE METER (BEAKER) (test 229 mg/dL 70-110 TESTED AT [address] ytfz=6250) [place] [address] POCT-GLUCOSE [id number] 13:23:00 Test Item Value Reference Range Comments POC-GLUCOSE METER (BEAKER) 148 mg/dL 70-110 TESTED AT [address] (test gybx=8474) [place] [address] POCT-GLUCOSE [id number] 07:33:00 Test Item Value Reference Range Comments POC-GLUCOSE METER (BEAKER) 112 mg/dL 70-110 TESTED AT [address] (test ojev=8224) [place] [address] BASIC METABOLIC [id number] 06:07:00 Test Item Value Reference Range Comments SODIUM (BEAKER) (test 132 meq/L 136-145 rqfq=382) POTASSIUM (BEAKER) (test 4.3 meq/L 3.5-5.1 cwtb=701) CHLORIDE (BEAKER) (test 97 meq/L 98-107 ptri=389) CO2 (BEAKER) (test 23 meq/L 22-29 issi=452) BLOOD UREA NITROGEN 45 mg/dL 7-21 (BEAKER) (test imlf=355) CREATININE (BEAKER) (test 3.43 mg/dL 0.57-1.25 vmfj=522) GLUCOSE RANDOM (BEAKER) 98 mg/dL 70-105 (test znmg=756) CALCIUM (BEAKER) (test 9.0 mg/dL 8.4-10.2 xxze=303) EGFR (BEAKER) (test 13 mL/min/1.73 sq m ESTIMATED GFR IS NOT rglq=8414) ACCURATE CREATININE CLEARANCE IN PREDICTING GLOMERULAR FILTRATION RATE. ESTIMATED GFR IS NOT APPLICABLE FOR DIALYSIS PATIENTS. [id number] 06:03:00 Test Item Value Reference Range Comments MAGNESIUM (BEAKER) (test ipjf=385) 1.8 mg/dL 1.6-2.6 CBC W/PLT COUNT & AUTO [id number] 05:46:00 Test Item Value Reference Range Comments WHITE BLOOD CELL COUNT (BEAKER) (test aeno=185) 9.9 K/ L 3.5-10.5 RED BLOOD CELL COUNT (BEAKER) (test icgo=405) 3.01 M/ L 3.93-5.22 HEMOGLOBIN (BEAKER) (test xpjw=265) 8.8 GM/DL 11.2-15.7 HEMATOCRIT (BEAKER) (test yaud=445) 28.2 % 34.1-44.9 MEAN CORPUSCULAR VOLUME (BEAKER) (test qbbb=101) 93.7 fL 79.4-94.8 MEAN CORPUSCULAR HEMOGLOBIN (BEAKER) (test 29.2 pg 25.6-32.2 feiy=527) MEAN CORPUSCULAR HEMOGLOBIN CONC (BEAKER) (test 31.2 GM/DL 32.2-35.5 rmvg=812) RED CELL DISTRIBUTION WIDTH (BEAKER) (test 15.8 % 11.7-14.4 iogt=938) PLATELET COUNT (BEAKER) (test mekq=923) 298 K/CU MM 150-450 MEAN PLATELET VOLUME (BEAKER) (test gyht=196) 11.1 fL 9.4-12.3 NUCLEATED RED BLOOD CELLS (BEAKER) (test 0 /100 WBC 0-0 nvxi=464) NEUTROPHILS RELATIVE PERCENT (BEAKER) (test 62 % ienp=297) LYMPHOCYTES RELATIVE PERCENT (BEAKER) (test 24 % meqy=437) MONOCYTES RELATIVE PERCENT (BEAKER) (test 10 % wbpz=509) EOSINOPHILS RELATIVE PERCENT (BEAKER) (test 3 % hhlr=384) BASOPHILS RELATIVE PERCENT (BEAKER) (test 1 % yomh=188) NEUTROPHILS ABSOLUTE COUNT (BEAKER) (test 6.10 K/ L 1.56-6.13 qlve=756) LYMPHOCYTES ABSOLUTE COUNT (BEAKER) (test 2.33 K/ L 1.18-3.74 egbb=410) MONOCYTES ABSOLUTE COUNT (BEAKER) (test 0.98 K/ L 0.24-0.36 clvx=172) EOSINOPHILS ABSOLUTE COUNT (BEAKER) (test 0.33 K/ L 0.04-0.36 yjos=720) BASOPHILS ABSOLUTE COUNT (BEAKER) (test 0.08 K/ L 0.01-0.08 jbbk=885) IMMATURE GRANULOCYTES-RELATIVE PERCENT (BEAKER) 1 % 0-1 (test mzzy=9675) POCT-GLUCOSE [id number] 21:26:00 Test Item Value Reference Range Comments POC-GLUCOSE METER (BEAKER) 117 mg/dL 70-110 TESTED AT [address] (test ijbi=9551) [place] [address] POCT-GLUCOSE [id number] 16:18:00 Test Item Value Reference Range Comments POC-GLUCOSE METER (BEAKER) 72 mg/dL 70-110 TESTED AT [address] (test hwhw=5785) [place] [address] POCT-GLUCOSE [id number] 11:37:00 Test Item Value Reference Range Comments POC-GLUCOSE METER (BEAKER) 191 mg/dL 70-110 TESTED AT [address] (test aaso=9532) [place] [address] POCT-GLUCOSE [id number] 07:21:00 Test Item Value Reference Range Comments POC-GLUCOSE METER (BEAKER) 129 mg/dL 70-110 TESTED AT [address] (test duzg=4891) [place] [address] BASIC METABOLIC [id number] 06:52:00 Test Item Value Reference Range Comments SODIUM (BEAKER) (test 137 meq/L 136-145 vcqi=066) POTASSIUM (BEAKER) (test 4.2 meq/L 3.5-5.1 vfeg=176) CHLORIDE (BEAKER) (test 100 meq/L 98-107 dvkr=871) CO2 (BEAKER) (test 29 meq/L 22-29 uden=434) BLOOD UREA NITROGEN 26 mg/dL 7-21 (BEAKER) (test cvcd=583) CREATININE (BEAKER) (test 2.31 mg/dL 0.57-1.25 fwec=448) GLUCOSE RANDOM (BEAKER) 100 mg/dL 70-105 (test bsha=526) CALCIUM (BEAKER) (test 9.0 mg/dL 8.4-10.2 pvkh=371) EGFR (BEAKER) (test 21 mL/min/1.73 sq m ESTIMATED GFR IS NOT vsxf=3060) ACCURATE CREATININE CLEARANCE IN PREDICTING GLOMERULAR FILTRATION RATE. ESTIMATED GFR IS NOT APPLICABLE FOR DIALYSIS PATIENTS. [id number] 06:47:00 Test Item Value Reference Range Comments MAGNESIUM (BEAKER) (test beoe=990) 1.9 mg/dL 1.6-2.6 CBC W/PLT COUNT & AUTO [id number] 06:27:00 Test Item Value Reference Range Comments WHITE BLOOD CELL COUNT (BEAKER) (test rife=461) 8.1 K/ L 3.5-10.5 RED BLOOD CELL COUNT (BEAKER) (test wrbj=951) 2.94 M/ L 3.93-5.22 HEMOGLOBIN (BEAKER) (test tzcy=385) 8.7 GM/DL 11.2-15.7 HEMATOCRIT (BEAKER) (test wkpi=532) 27.5 % 34.1-44.9 MEAN CORPUSCULAR VOLUME (BEAKER) (test ecxm=274) 93.5 fL 79.4-94.8 MEAN CORPUSCULAR HEMOGLOBIN (BEAKER) (test 29.6 pg 25.6-32.2 wbvp=635) MEAN CORPUSCULAR HEMOGLOBIN CONC (BEAKER) (test 31.6 GM/DL 32.2-35.5 ijgd=293) RED CELL DISTRIBUTION WIDTH (BEAKER) (test 15.8 % 11.7-14.4 syia=647) PLATELET COUNT (BEAKER) (test hiac=010) 305 K/CU MM 150-450 MEAN PLATELET VOLUME (BEAKER) (test dakl=087) 11.6 fL 9.4-12.3 NUCLEATED RED BLOOD CELLS (BEAKER) (test 0 /100 WBC 0-0 scrw=972) NEUTROPHILS RELATIVE PERCENT (BEAKER) (test 63 % laoq=753) LYMPHOCYTES RELATIVE PERCENT (BEAKER) (test 21 % zldp=423) MONOCYTES RELATIVE PERCENT (BEAKER) (test 12 % ylux=483) EOSINOPHILS RELATIVE PERCENT (BEAKER) (test 2 % vctf=668) BASOPHILS RELATIVE PERCENT (BEAKER) (test 1 % dyvj=920) NEUTROPHILS ABSOLUTE COUNT (BEAKER) (test 5.13 K/ L 1.56-6.13 beej=249) LYMPHOCYTES ABSOLUTE COUNT (BEAKER) (test 1.72 K/ L 1.18-3.74 pfjg=407) MONOCYTES ABSOLUTE COUNT (BEAKER) (test 0.94 K/ L 0.24-0.36 fpmx=820) EOSINOPHILS ABSOLUTE COUNT (BEAKER) (test 0.19 K/ L 0.04-0.36 bflj=265) BASOPHILS ABSOLUTE COUNT (BEAKER) (test 0.07 K/ L 0.01-0.08 tzzo=229) IMMATURE GRANULOCYTES-RELATIVE PERCENT (BEAKER) 1 % 0-1 (test zryk=8451) POCT-GLUCOSE [id number] 21:28:00 Test Item Value Reference Range Comments POC-GLUCOSE METER (BEAKER) 126 mg/dL 70-110 TESTED AT [address] (test qpyw=5437) [place] [id number] POCT-GLUCOSE [id number] 17:04:00 Test Item Value Reference Range Comments POC-GLUCOSE METER (BEAKER) 112 mg/dL 70-110 TESTED AT [address] (test aokb=3187) [facility] [address] POCT-GLUCOSE [id number] 12:52:00 Test Item Value Reference Range Comments POC-GLUCOSE METER (BEAKER) 186 mg/dL 70-110 TESTED AT [address] (test cndl=9388) [place] [address] POCT-GLUCOSE [id number] 08:56:00 Test Item Value Reference Range Comments POC-GLUCOSE METER (BEAKER) 140 mg/dL 70-110 TESTED AT [address] (test wuaq=8010) [facility] [address] BASIC METABOLIC [id number] 07:35:00 Test Item Value Reference Range Comments SODIUM (BEAKER) (test 131 meq/L 136-145 bwoj=916) POTASSIUM (BEAKER) (test 4.8 meq/L 3.5-5.1 eaww=245) CHLORIDE (BEAKER) (test 97 meq/L 98-107 qjyz=046) CO2 (BEAKER) (test 24 meq/L 22-29 pjob=413) BLOOD UREA NITROGEN 56 mg/dL 7-21 (BEAKER) (test fzcf=065) CREATININE (BEAKER) (test 3.78 mg/dL 0.57-1.25 tfjj=716) GLUCOSE RANDOM (BEAKER) 107 mg/dL 70-105 (test pkra=214) CALCIUM (BEAKER) (test 8.8 mg/dL 8.4-10.2 lrfg=325) EGFR (BEAKER) (test 12 mL/min/1.73 sq m ESTIMATED GFR IS NOT lcpn=4107) ACCURATE CREATININE CLEARANCE IN PREDICTING GLOMERULAR FILTRATION RATE. ESTIMATED GFR IS NOT APPLICABLE FOR DIALYSIS PATIENTS. [id number] 07:29:00 Test Item Value Reference Range Comments MAGNESIUM (BEAKER) (test ovgg=742) 1.8 mg/dL 1.6-2.6 CBC W/PLT COUNT & AUTO [id number] 06:52:00 Test Item Value Reference Range Comments WHITE BLOOD CELL COUNT (BEAKER) (test zdmx=162) 8.2 K/ L 3.5-10.5 RED BLOOD CELL COUNT (BEAKER) (test njwa=961) 2.88 M/ L 3.93-5.22 HEMOGLOBIN (BEAKER) (test ihkq=905) 8.3 GM/DL 11.2-15.7 HEMATOCRIT (BEAKER) (test chvv=220) 27.1 % 34.1-44.9 MEAN CORPUSCULAR VOLUME (BEAKER) (test fdya=447) 94.1 fL 79.4-94.8 MEAN CORPUSCULAR HEMOGLOBIN (BEAKER) (test 28.8 pg 25.6-32.2 vgrs=169) MEAN CORPUSCULAR HEMOGLOBIN CONC (BEAKER) (test 30.6 GM/DL 32.2-35.5 ikbl=283) RED CELL DISTRIBUTION WIDTH (BEAKER) (test 15.8 % 11.7-14.4 dhnu=527) PLATELET COUNT (BEAKER) (test tumz=327) 299 K/CU MM 150-450 MEAN PLATELET VOLUME (BEAKER) (test ousv=582) 11.5 fL 9.4-12.3 NUCLEATED RED BLOOD CELLS (BEAKER) (test 0 /100 WBC 0-0 eiwl=399) NEUTROPHILS RELATIVE PERCENT (BEAKER) (test 55 % emro=010) LYMPHOCYTES RELATIVE PERCENT (BEAKER) (test 27 % bdhm=236) MONOCYTES RELATIVE PERCENT (BEAKER) (test 13 % mmzb=639) EOSINOPHILS RELATIVE PERCENT (BEAKER) (test 4 % fnjv=601) BASOPHILS RELATIVE PERCENT (BEAKER) (test 1 % soyh=360) NEUTROPHILS ABSOLUTE COUNT (BEAKER) (test 4.50 K/ L 1.56-6.13 obbt=393) LYMPHOCYTES ABSOLUTE COUNT (BEAKER) (test 2.20 K/ L 1.18-3.74 utxa=230) MONOCYTES ABSOLUTE COUNT (BEAKER) (test 1.08 K/ L 0.24-0.36 khxw=113) EOSINOPHILS ABSOLUTE COUNT (BEAKER) (test 0.30 K/ L 0.04-0.36 mxxo=070) BASOPHILS ABSOLUTE COUNT (BEAKER) (test 0.06 K/ L 0.01-0.08 luma=153) IMMATURE GRANULOCYTES-RELATIVE PERCENT (BEAKER) 1 % 0-1 (test lftm=1235) POCT-GLUCOSE [id number] 20:55:00 Test Item Value Reference Range Comments POC-GLUCOSE METER (BEAKER) 125 mg/dL 70-110 TESTED AT [address] (test hkbl=8848) [place] [address] POCT-GLUCOSE [id number] 17:18:00 Test Item Value Reference Range Comments POC-GLUCOSE METER (BEAKER) 121 mg/dL 70-110 TESTED AT [address] (test ksrt=6973) [place] [address] POCT-GLUCOSE [id number] 10:40:00 Test Item Value Reference Range Comments POC-GLUCOSE METER (BEAKER) 187 mg/dL 70-110 TESTED AT [address] (test nrqn=0046) [place] [address] BASIC METABOLIC [id number] 07:02:00 Test Item Value Reference Range Comments SODIUM (BEAKER) (test 133 meq/L 136-145 ngpl=831) POTASSIUM (BEAKER) (test 4.6 meq/L 3.5-5.1 ymue=862) CHLORIDE (BEAKER) (test 98 meq/L 98-107 xrpl=817) CO2 (BEAKER) (test 25 meq/L 22-29 nagk=798) BLOOD UREA NITROGEN 41 mg/dL 7-21 (BEAKER) (test jpkm=850) CREATININE (BEAKER) (test 2.98 mg/dL 0.57-1.25 axuh=320) GLUCOSE RANDOM (BEAKER) 131 mg/dL 70-105 (test stft=716) CALCIUM (BEAKER) (test 9.0 mg/dL 8.4-10.2 fvat=644) EGFR (BEAKER) (test 16 mL/min/1.73 sq m ESTIMATED GFR IS NOT kjrw=0929) ACCURATE CREATININE CLEARANCE IN PREDICTING GLOMERULAR FILTRATION RATE. ESTIMATED GFR IS NOT APPLICABLE FOR DIALYSIS PATIENTS. POCT-GLUCOSE [id number] 06:53:00 Test Item Value Reference Range Comments POC-GLUCOSE METER (BEAKER) 145 mg/dL 70-110 TESTED AT [facility] [address] [facility] (test jkei=3939) [facility] [address] CALCIUM, [id number] 06:50:00 Test Item Value Reference Range Comments CALCIUM IONIZED (BEAKER) (test shaw=869) 1.03 mmol/L 1.12-1.27 PH, BLOOD (BEAKER) (test oagn=1175) 7.53 [id number] 06:47:00 Test Item Value Reference Range Comments PHOSPHORUS (BEAKER) (test acbq=031) 4.1 mg/dL 2.3-4.7 [id number] 06:47:00 Test Item Value Reference Range Comments MAGNESIUM (BEAKER) (test ioay=051) 1.8 mg/dL 1.6-2.6 CBC W/PLT COUNT & AUTO [id number] 06:27:00 Test Item Value Reference Range Comments WHITE BLOOD CELL COUNT (BEAKER) (test inar=911) 7.9 K/ L 3.5-10.5 RED BLOOD CELL COUNT (BEAKER) (test uewr=612) 3.17 M/ L 3.93-5.22 HEMOGLOBIN (BEAKER) (test izow=327) 9.3 GM/DL 11.2-15.7 HEMATOCRIT (BEAKER) (test ulsl=602) 28.8 % 34.1-44.9 MEAN CORPUSCULAR VOLUME (BEAKER) (test mfkq=465) 90.9 fL 79.4-94.8 MEAN CORPUSCULAR HEMOGLOBIN (BEAKER) (test 29.3 pg 25.6-32.2 lisd=108) MEAN CORPUSCULAR HEMOGLOBIN CONC (BEAKER) (test 32.3 GM/DL 32.2-35.5 sbwb=573) RED CELL DISTRIBUTION WIDTH (BEAKER) (test 15.5 % 11.7-14.4 cyvn=275) PLATELET COUNT (BEAKER) (test isdt=998) 328 K/CU MM 150-450 MEAN PLATELET VOLUME (BEAKER) (test eziw=630) 11.5 fL 9.4-12.3 NUCLEATED RED BLOOD CELLS (BEAKER) (test 0 /100 WBC 0-0 upnw=025) NEUTROPHILS RELATIVE PERCENT (BEAKER) (test 69 % nnye=521) LYMPHOCYTES RELATIVE PERCENT (BEAKER) (test 17 % gzjj=432) MONOCYTES RELATIVE PERCENT (BEAKER) (test 11 % njyl=019) EOSINOPHILS RELATIVE PERCENT (BEAKER) (test 1 % byzx=891) BASOPHILS RELATIVE PERCENT (BEAKER) (test 1 % ccoi=795) NEUTROPHILS ABSOLUTE COUNT (BEAKER) (test 5.48 K/ L 1.56-6.13 mgtq=857) LYMPHOCYTES ABSOLUTE COUNT (BEAKER) (test 1.33 K/ L 1.18-3.74 bcbv=840) MONOCYTES ABSOLUTE COUNT (BEAKER) (test 0.90 K/ L 0.24-0.36 eity=662) EOSINOPHILS ABSOLUTE COUNT (BEAKER) (test 0.11 K/ L 0.04-0.36 qlvh=512) BASOPHILS ABSOLUTE COUNT (BEAKER) (test 0.04 K/ L 0.01-0.08 uvcn=312) IMMATURE GRANULOCYTES-RELATIVE PERCENT (BEAKER) 1 % 0-1 (test nqna=7053) POCT-GLUCOSE [id number] 23:08:00 Test Item Value Reference Range Comments POC-GLUCOSE METER (BEAKER) 189 mg/dL 70-110 TESTED AT [facility] [address] (test iquj=6873) [facility] [address] ANG, TUNNELED CATHETER [id number] 14:52:00Reason for exam:-> Tunneled hemodialysis catheter insertionFINAL REPORT Procedure title: Tunneled right internal jugular vein hemodialysis catheter placement using ultrasound and fluoroscopy, 06/04/2018. History: Need for dialysis Anesthesia: 1% lidocaine Sedation: 0.5 mg Versed, 25 mcg fentanyl. The patient was monitored continuously with pulse oximetry and electrocardiography by the attending physician and registered nurse. ASA scale three. Airway okay Physician interservice was time 20 minutes. Approach: Right internal jugular vein Modality: Ultrasound and fluoroscopy Fluoroscopy time: 0.3 minutes, total dose: 4.3 mGy. Reference air kerma method Technique: After obtaining written informed consent, and using maximal sterile barrier technique, ultrasound. evaluation of the right internal jugular vein was performed. The vein is patent and compressible and was then accessed with real time ultrasound guidance. Images were stored [facility]. Fluoroscopic assistance was then provided to place a catheter that was tunneled subcutaneouslyalong the right anterior chest. The tip of the catheter was positioned in the right atrium. The patient tolerated the procedure well without difficulty. Estimated blood loss was 10 ml . Conclusion: Placement of tunneled hemodialysis catheter. Signed: Carrie Quinteros [facility] Verified Date/Time: 06/04/2018 14:52:23 Reading Location: [place] [address] Angio Body Reading Room HEPATITIS B [id number] 12:38:00 Test Item Value Reference Range Comments HEPATITIS B CORE TOTAL ANTIBODY (BEAKER) (test Nonreactive Nonreactive fvtq=848) HEPATITIS B SURFACE ANTIBODY (BEAKER) (test 18.1 mIU/mL <8.0 eswb=656) HEPATITIS B SURFACE ANTIGEN (2) (BEAKER) (test Nonreactive Nonreactive wptm=5709) POCT-GLUCOSE [id number] 12:14:00 Test Item Value Reference Range Comments POC-GLUCOSE METER (BEAKER) 141 mg/dL 70-110 TESTED AT [facility] [address] [facility] (test aerm=1633) [facility] [address] PROTHROMBIN [id number] 10:32:00 Test Item Value Reference Range Comments PROTIME (BEAKER) (test kygk=325) 14.6 seconds 11.7-14.7 INR (BEAKER) (test kudd=343) 1.1 <=5.9 RECOMMENDED COUMADIN/WARFARIN INR THERAPY RANGESSTANDARD DOSE: 2.0 - 3.0 Includes: PROPHYLAXIS forvenous thrombosis, systemic embolization; TREATMENT for venous thrombosis and/or pulmonary embolus.HIGH RISK: Target INR is 2.5-3.5 for patients with mechanical heart valves.POCT-GLUCOSE [id number] 08:51:00 Test Item Value Reference Range Comments POC-GLUCOSE METER (BEAKER) 153 mg/dL 70-110 TESTED AT [facility] [address] [facility] (test hyld=4788) [facility] [address] BASIC METABOLIC [id number] 04:51:00 Test Item Value Reference Range Comments SODIUM (BEAKER) (test 131 meq/L 136-145 uvkz=882) POTASSIUM (BEAKER) (test 5.3 meq/L 3.5-5.1 ngxi=466) CHLORIDE (BEAKER) (test 96 meq/L 98-107 txld=875) CO2 (BEAKER) (test 21 meq/L 22-29 gkry=785) BLOOD UREA NITROGEN 91 mg/dL 7-21 (BEAKER) (test mafw=141) CREATININE (BEAKER) (test 5.00 mg/dL 0.57-1.25 jdcf=006) GLUCOSE RANDOM (BEAKER) 120 mg/dL 70-105 (test jgmo=473) CALCIUM (BEAKER) (test 8.8 mg/dL 8.4-10.2 eyom=378) EGFR (BEAKER) (test 9 mL/min/1.73 sq m ESTIMATED GFR IS NOT bvaj=9543) ACCURATE CREATININE CLEARANCE IN PREDICTING GLOMERULAR FILTRATION RATE. ESTIMATED GFR IS NOT APPLICABLE FOR DIALYSIS PATIENTS. [id number] 04:49:00 Test Item Value Reference Range Comments MAGNESIUM (BEAKER) (test clai=874) 1.8 mg/dL 1.6-2.6 CBC W/PLT COUNT & AUTO [id number] 04:29:00 Test Item Value Reference Range Comments WHITE BLOOD CELL COUNT (BEAKER) (test edpy=603) 8.9 K/ L 3.5-10.5 RED BLOOD CELL COUNT (BEAKER) (test yxco=501) 2.70 M/ L 3.93-5.22 HEMOGLOBIN (BEAKER) (test nbdt=922) 7.8 GM/DL 11.2-15.7 HEMATOCRIT (BEAKER) (test nbue=536) 24.4 % 34.1-44.9 MEAN CORPUSCULAR VOLUME (BEAKER) (test oxfd=554) 90.4 fL 79.4-94.8 MEAN CORPUSCULAR HEMOGLOBIN (BEAKER) (test 28.9 pg 25.6-32.2 bfgx=168) MEAN CORPUSCULAR HEMOGLOBIN CONC (BEAKER) (test 32.0 GM/DL 32.2-35.5 uuio=377) RED CELL DISTRIBUTION WIDTH (BEAKER) (test 15.2 % 11.7-14.4 ewaq=761) PLATELET COUNT (BEAKER) (test mluf=514) 312 K/CU MM 150-450 MEAN PLATELET VOLUME (BEAKER) (test zkfe=265) 11.9 fL 9.4-12.3 NUCLEATED RED BLOOD CELLS (BEAKER) (test 0 /100 WBC 0-0 reix=350) NEUTROPHILS RELATIVE PERCENT (BEAKER) (test 62 % kchd=112) LYMPHOCYTES RELATIVE PERCENT (BEAKER) (test 23 % tsts=773) MONOCYTES RELATIVE PERCENT (BEAKER) (test 10 % jerd=073) EOSINOPHILS RELATIVE PERCENT (BEAKER) (test 5 % rwjc=108) BASOPHILS RELATIVE PERCENT (BEAKER) (test 1 % cbkp=899) NEUTROPHILS ABSOLUTE COUNT (BEAKER) (test 5.48 K/ L 1.56-6.13 geai=236) LYMPHOCYTES ABSOLUTE COUNT (BEAKER) (test 2.02 K/ L 1.18-3.74 qnfg=879) MONOCYTES ABSOLUTE COUNT (BEAKER) (test 0.86 K/ L 0.24-0.36 otwo=285) EOSINOPHILS ABSOLUTE COUNT (BEAKER) (test 0.41 K/ L 0.04-0.36 ecpg=231) BASOPHILS ABSOLUTE COUNT (BEAKER) (test 0.06 K/ L 0.01-0.08 nequ=615) IMMATURE GRANULOCYTES-RELATIVE PERCENT (BEAKER) 1 % 0-1 (test rxjf=3644) POCT-GLUCOSE [id number] 22:21:00 Test Item Value Reference Range Comments POC-GLUCOSE METER (BEAKER) 96 mg/dL 70-110 TESTED AT [facility] [address] [facility] (test ttvt=0578) [facility] [address] POCT-GLUCOSE [id number] 17:52:00 Test Item Value Reference Range Comments POC-GLUCOSE METER (BEAKER) 154 mg/dL 70-110 TESTED AT [facility] [address] [facility] (test nnkk=4622) [facility] [address] POCT-GLUCOSE [id number] 12:20:00 Test Item Value Reference Range Comments POC-GLUCOSE METER (BEAKER) 120 mg/dL 70-110 TESTED AT [address] (test hvad=1296) [facility] [address] POCT-GLUCOSE [id number] 08:55:00 Test Item Value Reference Range Comments POC-GLUCOSE METER (BEAKER) 123 mg/dL 70-110 TESTED AT [address] (test nphk=1049) [facility] [address] BASIC METABOLIC [id number] 06:54:00 Test Item Value Reference Range Comments SODIUM (BEAKER) (test 131 meq/L 136-145 jbki=539) POTASSIUM (BEAKER) (test 4.8 meq/L 3.5-5.1 kesv=238) CHLORIDE (BEAKER) (test 97 meq/L 98-107 brii=212) CO2 (BEAKER) (test 21 meq/L 22-29 isjf=093) BLOOD UREA NITROGEN 70 mg/dL 7-21 (BEAKER) (test zite=398) CREATININE (BEAKER) (test 4.49 mg/dL 0.57-1.25 fzxq=663) GLUCOSE RANDOM (BEAKER) 120 mg/dL 70-105 (test cwcy=376) CALCIUM (BEAKER) (test 8.5 mg/dL 8.4-10.2 aobq=085) EGFR (BEAKER) (test 10 mL/min/1.73 sq m ESTIMATED GFR IS NOT iolu=5213) ACCURATE CREATININE CLEARANCE IN PREDICTING GLOMERULAR FILTRATION RATE. ESTIMATED GFR IS NOT APPLICABLE FOR DIALYSIS PATIENTS. [id number] 06:31:00 Test Item Value Reference Range Comments MAGNESIUM (BEAKER) (test ksbw=405) 1.7 mg/dL 1.6-2.6 CBC W/PLT COUNT & AUTO [id number] 05:08:00 Test Item Value Reference Range Comments WHITE BLOOD CELL COUNT (BEAKER) (test kbyx=590) 11.2 K/ L 3.5-10.5 RED BLOOD CELL COUNT (BEAKER) (test mrub=209) 2.74 M/ L 3.93-5.22 HEMOGLOBIN (BEAKER) (test rnfk=736) 8.0 GM/DL 11.2-15.7 HEMATOCRIT (BEAKER) (test rrsw=810) 25.1 % 34.1-44.9 MEAN CORPUSCULAR VOLUME (BEAKER) (test qire=236) 91.6 fL 79.4-94.8 MEAN CORPUSCULAR HEMOGLOBIN (BEAKER) (test 29.2 pg 25.6-32.2 qivj=328) MEAN CORPUSCULAR HEMOGLOBIN CONC (BEAKER) (test 31.9 GM/DL 32.2-35.5 vdmx=480) RED CELL DISTRIBUTION WIDTH (BEAKER) (test 15.4 % 11.7-14.4 isiz=814) PLATELET COUNT (BEAKER) (test ioif=212) 310 K/CU MM 150-450 MEAN PLATELET VOLUME (BEAKER) (test rlcj=319) 11.5 fL 9.4-12.3 NUCLEATED RED BLOOD CELLS (BEAKER) (test 0 /100 WBC 0-0 ukpc=078) NEUTROPHILS RELATIVE PERCENT (BEAKER) (test 64 % vnsy=562) LYMPHOCYTES RELATIVE PERCENT (BEAKER) (test 22 % aygh=503) MONOCYTES RELATIVE PERCENT (BEAKER) (test 11 % aduy=624) EOSINOPHILS RELATIVE PERCENT (BEAKER) (test 3 % pftc=713) BASOPHILS RELATIVE PERCENT (BEAKER) (test 1 % awwc=282) NEUTROPHILS ABSOLUTE COUNT (BEAKER) (test 7.10 K/ L 1.56-6.13 ivtt=542) LYMPHOCYTES ABSOLUTE COUNT (BEAKER) (test 2.42 K/ L 1.18-3.74 qalf=996) MONOCYTES ABSOLUTE COUNT (BEAKER) (test 1.18 K/ L 0.24-0.36 trar=438) EOSINOPHILS ABSOLUTE COUNT (BEAKER) (test 0.29 K/ L 0.04-0.36 jjyc=713) BASOPHILS ABSOLUTE COUNT (BEAKER) (test 0.06 K/ L 0.01-0.08 xdiq=206) IMMATURE GRANULOCYTES-RELATIVE PERCENT (BEAKER) 1 % 0-1 (test fzfa=4223) POCT-GLUCOSE [id number] 20:53:00 Test Item Value Reference Range Comments POC-GLUCOSE METER (BEAKER) 307 mg/dL 70-110 Notified SAMAN HERNANDEZ/TESTED AT [facility] (test hswc=4920) [address] [facility] [address] POCT-GLUCOSE [id number] 16:48:00 Test Item Value Reference Range Comments POC-GLUCOSE METER (BEAKER) 262 mg/dL 70-110 TESTED AT [address] (test erwz=9972) [facility] [address] POCT-GLUCOSE [id number] 15:33:00 Test Item Value Reference Range Comments POC-GLUCOSE METER (BEAKER) 204 mg/dL 70-110 TESTED AT [address] (test kmxp=0127) [facility] [address] POCT-GLUCOSE [id number] 08:38:00 Test Item Value Reference Range Comments POC-GLUCOSE METER (BEAKER) 143 mg/dL 70-110 TESTED AT [address] (test ikfh=0601) [facility] [address] BASIC METABOLIC [id number] 04:30:00 Test Item Value Reference Range Comments SODIUM (BEAKER) (test 134 meq/L 136-145 vdsu=771) POTASSIUM (BEAKER) (test 4.3 meq/L 3.5-5.1 nscj=717) CHLORIDE (BEAKER) (test 98 meq/L 98-107 xscr=453) CO2 (BEAKER) (test 25 meq/L 22-29 kgdf=725) BLOOD UREA NITROGEN 51 mg/dL 7-21 (BEAKER) (test tild=422) CREATININE (BEAKER) (test 3.85 mg/dL 0.57-1.25 ksrd=831) GLUCOSE RANDOM (BEAKER) 133 mg/dL 70-105 (test qelk=612) CALCIUM (BEAKER) (test 8.7 mg/dL 8.4-10.2 evrh=816) EGFR (BEAKER) (test 12 mL/min/1.73 sq m ESTIMATED GFR IS NOT yhmi=4209) ACCURATE CREATININE CLEARANCE IN PREDICTING GLOMERULAR FILTRATION RATE. ESTIMATED GFR IS NOT APPLICABLE FOR DIALYSIS PATIENTS. [id number] 04:16:00 Test Item Value Reference Range Comments MAGNESIUM (BEAKER) (test krnc=956) 1.8 mg/dL 1.6-2.6 CBC W/PLT COUNT & AUTO [id number] 03:57:00 Test Item Value Reference Range Comments WHITE BLOOD CELL COUNT (BEAKER) (test egcf=497) 10.3 K/ L 3.5-10.5 RED BLOOD CELL COUNT (BEAKER) (test yijy=389) 2.83 M/ L 3.93-5.22 HEMOGLOBIN (BEAKER) (test czck=614) 8.2 GM/DL 11.2-15.7 HEMATOCRIT (BEAKER) (test vyyh=549) 26.0 % 34.1-44.9 MEAN CORPUSCULAR VOLUME (BEAKER) (test gpkg=568) 91.9 fL 79.4-94.8 MEAN CORPUSCULAR HEMOGLOBIN (BEAKER) (test 29.0 pg 25.6-32.2 syta=198) MEAN CORPUSCULAR HEMOGLOBIN CONC (BEAKER) (test 31.5 GM/DL 32.2-35.5 oilc=896) RED CELL DISTRIBUTION WIDTH (BEAKER) (test 15.2 % 11.7-14.4 yqkn=317) PLATELET COUNT (BEAKER) (test ines=382) 357 K/CU MM 150-450 MEAN PLATELET VOLUME (BEAKER) (test opxy=754) 11.5 fL 9.4-12.3 NUCLEATED RED BLOOD CELLS (BEAKER) (test 0 /100 WBC 0-0 uszx=025) NEUTROPHILS RELATIVE PERCENT (BEAKER) (test 65 % aepx=717) LYMPHOCYTES RELATIVE PERCENT (BEAKER) (test 21 % smpb=279) MONOCYTES RELATIVE PERCENT (BEAKER) (test 10 % gzjv=550) EOSINOPHILS RELATIVE PERCENT (BEAKER) (test 2 % sirl=828) BASOPHILS RELATIVE PERCENT (BEAKER) (test 1 % ouqg=677) NEUTROPHILS ABSOLUTE COUNT (BEAKER) (test 6.67 K/ L 1.56-6.13 wfkp=302) LYMPHOCYTES ABSOLUTE COUNT (BEAKER) (test 2.19 K/ L 1.18-3.74 biiv=497) MONOCYTES ABSOLUTE COUNT (BEAKER) (test 1.05 K/ L 0.24-0.36 usim=517) EOSINOPHILS ABSOLUTE COUNT (BEAKER) (test 0.25 K/ L 0.04-0.36 lfor=162) BASOPHILS ABSOLUTE COUNT (BEAKER) (test 0.07 K/ L 0.01-0.08 jtiv=077) IMMATURE GRANULOCYTES-RELATIVE PERCENT (BEAKER) 1 % 0-1 (test zmnw=2733) POCT-GLUCOSE [id number] 21:00:00 Test Item Value Reference Range Comments POC-GLUCOSE METER (BEAKER) 286 mg/dL 70-110 TESTED AT [address] (test faiv=9714) [place] [id number] POCT-GLUCOSE [id number] 20:08:00 Test Item Value Reference Range Comments POC-GLUCOSE METER (BEAKER) 317 mg/dL 70-110 TESTED AT [address] (test odov=7242) [place] [id number] POCT-GLUCOSE [id number] 11:48:00 Test Item Value Reference Range Comments POC-GLUCOSE METER (BEAKER) 249 mg/dL 70-110 TESTED AT [address] (test tcgb=2606) [place] [id number] POCT-GLUCOSE [id number] 08:11:00 Test Item Value Reference Range Comments POC-GLUCOSE METER (BEAKER) 236 mg/dL 70-110 TESTED AT [address] (test qalg=8482) [place] [address] [id number] 06:57:00 Test Item Value Reference Range Comments MAGNESIUM (BEAKER) (test vqax=763) 1.9 mg/dL 1.6-2.6 BASIC METABOLIC [id number] 06:57:00 Test Item Value Reference Range Comments SODIUM (BEAKER) (test 135 meq/L 136-145 lzbr=709) POTASSIUM (BEAKER) (test 4.1 meq/L 3.5-5.1 ovwd=541) CHLORIDE (BEAKER) (test 99 meq/L 98-107 ejfw=075) CO2 (BEAKER) (test 25 meq/L 22-29 axzp=845) BLOOD UREA NITROGEN 26 mg/dL 7-21 (BEAKER) (test yfns=534) CREATININE (BEAKER) (test 2.97 mg/dL 0.57-1.25 kzje=606) GLUCOSE RANDOM (BEAKER) 226 mg/dL 70-105 (test hako=521) CALCIUM (BEAKER) (test 8.6 mg/dL 8.4-10.2 vqwg=471) EGFR (BEAKER) (test 16 mL/min/1.73 sq m ESTIMATED GFR IS NOT jaxr=2985) ACCURATE CREATININE CLEARANCE IN PREDICTING GLOMERULAR FILTRATION RATE. ESTIMATED GFR IS NOT APPLICABLE FOR DIALYSIS PATIENTS. CBC W/PLT COUNT & AUTO [id number] 06:34:00 Test Item Value Reference Range Comments WHITE BLOOD CELL COUNT (BEAKER) (test zcqz=329) 9.8 K/ L 3.5-10.5 RED BLOOD CELL COUNT (BEAKER) (test jgoz=278) 2.89 M/ L 3.93-5.22 HEMOGLOBIN (BEAKER) (test lcmi=142) 8.5 GM/DL 11.2-15.7 HEMATOCRIT (BEAKER) (test bfkb=539) 26.8 % 34.1-44.9 MEAN CORPUSCULAR VOLUME (BEAKER) (test dqsx=990) 92.7 fL 79.4-94.8 MEAN CORPUSCULAR HEMOGLOBIN (BEAKER) (test 29.4 pg 25.6-32.2 vlxj=081) MEAN CORPUSCULAR HEMOGLOBIN CONC (BEAKER) (test 31.7 GM/DL 32.2-35.5 fywt=918) RED CELL DISTRIBUTION WIDTH (BEAKER) (test 15.2 % 11.7-14.4 ewal=154) PLATELET COUNT (BEAKER) (test efhe=119) 348 K/CU MM 150-450 MEAN PLATELET VOLUME (BEAKER) (test fsvr=515) 11.7 fL 9.4-12.3 NUCLEATED RED BLOOD CELLS (BEAKER) (test 0 /100 WBC 0-0 tysn=629) NEUTROPHILS RELATIVE PERCENT (BEAKER) (test 72 % uwct=984) LYMPHOCYTES RELATIVE PERCENT (BEAKER) (test 16 % oiwx=474) MONOCYTES RELATIVE PERCENT (BEAKER) (test 9 % ebxu=259) EOSINOPHILS RELATIVE PERCENT (BEAKER) (test 2 % ezcz=491) BASOPHILS RELATIVE PERCENT (BEAKER) (test 1 % zlwv=011) NEUTROPHILS ABSOLUTE COUNT (BEAKER) (test 7.03 K/ L 1.56-6.13 ubwa=909) LYMPHOCYTES ABSOLUTE COUNT (BEAKER) (test 1.56 K/ L 1.18-3.74 wsbw=730) MONOCYTES ABSOLUTE COUNT (BEAKER) (test 0.88 K/ L 0.24-0.36 rjfs=454) EOSINOPHILS ABSOLUTE COUNT (BEAKER) (test 0.17 K/ L 0.04-0.36 iasj=720) BASOPHILS ABSOLUTE COUNT (BEAKER) (test 0.05 K/ L 0.01-0.08 xqrm=476) IMMATURE GRANULOCYTES-RELATIVE PERCENT (BEAKER) 1 % 0-1 (test wrwj=2977) POCT-GLUCOSE [id number] 21:44:00 Test Item Value Reference Range Comments POC-GLUCOSE METER (BEAKER) 220 mg/dL 70-110 TESTED AT [address] (test dzmm=5532) [place] [id number] POCT-GLUCOSE [id number] 17:01:00 Test Item Value Reference Range Comments POC-GLUCOSE METER (BEAKER) 272 mg/dL 70-110 TESTED AT [address] (test dets=1287) [place] [address] POCT-GLUCOSE [id number] 13:06:00 Test Item Value Reference Range Comments POC-GLUCOSE METER (BEAKER) 323 mg/dL 70-110 Notified SAMAN HERNANDEZ/TESTED AT [facility] (test fgjq=0936) [address] [place] [address] POCT-GLUCOSE [id number] 07:30:00 Test Item Value Reference Range Comments POC-GLUCOSE METER (BEAKER) 284 mg/dL 70-110 TESTED AT [address] (test fgoj=3917) [place] [id number] BASIC METABOLIC [id number] 06:58:00 Test Item Value Reference Range Comments SODIUM (BEAKER) (test 132 meq/L 136-145 ofys=362) POTASSIUM (BEAKER) (test 4.0 meq/L 3.5-5.1 fibt=978) CHLORIDE (BEAKER) (test 95 meq/L 98-107 xnxy=565) CO2 (BEAKER) (test 25 meq/L 22-29 ssug=094) BLOOD UREA NITROGEN 45 mg/dL 7-21 (BEAKER) (test jcpt=163) CREATININE (BEAKER) (test 4.37 mg/dL 0.57-1.25 loib=739) GLUCOSE RANDOM (BEAKER) 136 mg/dL 70-105 (test lpox=016) CALCIUM (BEAKER) (test 9.2 mg/dL 8.4-10.2 gtwk=743) EGFR (BEAKER) (test 10 mL/min/1.73 sq m ESTIMATED GFR IS NOT kncc=4428) ACCURATE CREATININE CLEARANCE IN PREDICTING GLOMERULAR FILTRATION RATE. ESTIMATED GFR IS NOT APPLICABLE FOR DIALYSIS PATIENTS. [id number] 06:56:00 Test Item Value Reference Range Comments MAGNESIUM (BEAKER) (test mwpx=435) 1.8 mg/dL 1.6-2.6 CBC W/PLT COUNT & AUTO [id number] 06:39:00 Test Item Value Reference Range Comments WHITE BLOOD CELL COUNT (BEAKER) (test slyi=788) 10.9 K/ L 3.5-10.5 RED BLOOD CELL COUNT (BEAKER) (test ewyp=647) 2.94 M/ L 3.93-5.22 HEMOGLOBIN (BEAKER) (test byod=752) 8.7 GM/DL 11.2-15.7 HEMATOCRIT (BEAKER) (test flef=401) 27.2 % 34.1-44.9 MEAN CORPUSCULAR VOLUME (BEAKER) (test vecu=271) 92.5 fL 79.4-94.8 MEAN CORPUSCULAR HEMOGLOBIN (BEAKER) (test 29.6 pg 25.6-32.2 dbkj=016) MEAN CORPUSCULAR HEMOGLOBIN CONC (BEAKER) (test 32.0 GM/DL 32.2-35.5 clxs=282) RED CELL DISTRIBUTION WIDTH (BEAKER) (test 15.7 % 11.7-14.4 fqej=047) PLATELET COUNT (BEAKER) (test cfkj=596) 385 K/CU MM 150-450 MEAN PLATELET VOLUME (BEAKER) (test erwv=488) 11.3 fL 9.4-12.3 NUCLEATED RED BLOOD CELLS (BEAKER) (test 0 /100 WBC 0-0 fahm=021) NEUTROPHILS RELATIVE PERCENT (BEAKER) (test 63 % xllk=153) LYMPHOCYTES RELATIVE PERCENT (BEAKER) (test 21 % lmew=577) MONOCYTES RELATIVE PERCENT (BEAKER) (test 11 % gefc=970) EOSINOPHILS RELATIVE PERCENT (BEAKER) (test 4 % tokd=124) BASOPHILS RELATIVE PERCENT (BEAKER) (test 1 % ocdo=692) NEUTROPHILS ABSOLUTE COUNT (BEAKER) (test 6.86 K/ L 1.56-6.13 hkew=679) LYMPHOCYTES ABSOLUTE COUNT (BEAKER) (test 2.29 K/ L 1.18-3.74 liek=372) MONOCYTES ABSOLUTE COUNT (BEAKER) (test 1.15 K/ L 0.24-0.36 kams=743) EOSINOPHILS ABSOLUTE COUNT (BEAKER) (test 0.43 K/ L 0.04-0.36 rklt=593) BASOPHILS ABSOLUTE COUNT (BEAKER) (test 0.09 K/ L 0.01-0.08 bdxy=200) IMMATURE GRANULOCYTES-RELATIVE PERCENT (BEAKER) 1 % 0-1 (test foss=5580) POCT-GLUCOSE [id number] 21:19:00 Test Item Value Reference Range Comments POC-GLUCOSE METER (BEAKER) 326 mg/dL 70-110 TESTED AT [facility] [address] [place] [address] (test xkwp=8597) [facility] [address] POCT-GLUCOSE [id number] 17:23:00 Test Item Value Reference Range Comments POC-GLUCOSE METER (BEAKER) 357 mg/dL 70-110 Notified SAMAN HERNANDEZ/TESTED AT [facility] (test cdow=7685) [address] [place] [address] BASIC METABOLIC [id number] 04:34:00 Test Item Value Reference Range Comments SODIUM (BEAKER) (test 140 meq/L 136-145 dfwn=595) POTASSIUM (BEAKER) (test 4.3 meq/L 3.5-5.1 Specimen slightly bdki=714) hemolyzed CHLORIDE (BEAKER) (test 101 meq/L 98-107 kfnn=871) CO2 (BEAKER) (test 28 meq/L 22-29 sugh=556) BLOOD UREA NITROGEN 22 mg/dL 7-21 (BEAKER) (test lnoo=164) CREATININE (BEAKER) (test 2.88 mg/dL 0.57-1.25 Specimen slightly agno=651) hemolyzed GLUCOSE RANDOM (BEAKER) 220 mg/dL 70-105 (test nrxw=135) CALCIUM (BEAKER) (test 9.2 mg/dL 8.4-10.2 bknb=264) EGFR (BEAKER) (test 16 mL/min/1.73 sq m ESTIMATED GFR IS NOT jrgn=4638) ACCURATE CREATININE CLEARANCE IN PREDICTING GLOMERULAR FILTRATION RATE. ESTIMATED GFR IS NOT APPLICABLE FOR DIALYSIS PATIENTS. [id number] 04:33:00 Test Item Value Reference Range Comments MAGNESIUM (BEAKER) (test 2.0 mg/dL 1.6-2.6 Specimen slightly hemolyzed dqov=776) CBC W/PLT COUNT & AUTO [id number] 04:23:00 Test Item Value Reference Range Comments WHITE BLOOD CELL COUNT (BEAKER) (test czcg=085) 9.5 K/ L 3.5-10.5 RED BLOOD CELL COUNT (BEAKER) (test osio=636) 3.10 M/ L 3.93-5.22 HEMOGLOBIN (BEAKER) (test vzbz=194) 9.1 GM/DL 11.2-15.7 HEMATOCRIT (BEAKER) (test wapi=202) 28.7 % 34.1-44.9 MEAN CORPUSCULAR VOLUME (BEAKER) (test zpwz=362) 92.6 fL 79.4-94.8 MEAN CORPUSCULAR HEMOGLOBIN (BEAKER) (test 29.4 pg 25.6-32.2 ovnb=045) MEAN CORPUSCULAR HEMOGLOBIN CONC (BEAKER) (test 31.7 GM/DL 32.2-35.5 mjzj=521) RED CELL DISTRIBUTION WIDTH (BEAKER) (test 15.8 % 11.7-14.4 rtch=633) PLATELET COUNT (BEAKER) (test nbdz=614) 387 K/CU MM 150-450 MEAN PLATELET VOLUME (BEAKER) (test yszd=158) 11.5 fL 9.4-12.3 NUCLEATED RED BLOOD CELLS (BEAKER) (test 0 /100 WBC 0-0 sipy=924) NEUTROPHILS RELATIVE PERCENT (BEAKER) (test 66 % kuup=909) LYMPHOCYTES RELATIVE PERCENT (BEAKER) (test 19 % ahzq=663) MONOCYTES RELATIVE PERCENT (BEAKER) (test 11 % ikxc=477) EOSINOPHILS RELATIVE PERCENT (BEAKER) (test 2 % jufq=522) BASOPHILS RELATIVE PERCENT (BEAKER) (test 1 % rscw=093) NEUTROPHILS ABSOLUTE COUNT (BEAKER) (test 6.28 K/ L 1.56-6.13 azdw=603) LYMPHOCYTES ABSOLUTE COUNT (BEAKER) (test 1.79 K/ L 1.18-3.74 fbwd=285) MONOCYTES ABSOLUTE COUNT (BEAKER) (test 1.02 K/ L 0.24-0.36 qvtt=682) EOSINOPHILS ABSOLUTE COUNT (BEAKER) (test 0.21 K/ L 0.04-0.36 lhyq=494) BASOPHILS ABSOLUTE COUNT (BEAKER) (test 0.07 K/ L 0.01-0.08 qjmo=369) IMMATURE GRANULOCYTES-RELATIVE PERCENT (BEAKER) 1 % 0-1 (test nzpp=1059) POCT-GLUCOSE [id number] 20:49:00 Test Item Value Reference Range Comments POC-GLUCOSE METER (BEAKER) 283 mg/dL 70-110 TESTED AT [address] (test rlur=2960) [facility] [address] POCT-GLUCOSE [id number] 17:16:00 Test Item Value Reference Range Comments POC-GLUCOSE METER (BEAKER) 193 mg/dL 70-110 TESTED AT [address] (test jems=7423) [place] [id number] POCT-GLUCOSE [id number] 11:47:00 Test Item Value Reference Range Comments POC-GLUCOSE METER (BEAKER) 316 mg/dL 70-110 Verify with Lab draw/TESTED AT (test goyi=4824) [address] [address] BASIC METABOLIC [id number] 07:53:00 Test Item Value Reference Range Comments SODIUM (BEAKER) (test 129 meq/L 136-145 utsb=009) POTASSIUM (BEAKER) (test 3.9 meq/L 3.5-5.1 xwvv=412) CHLORIDE (BEAKER) (test 94 meq/L 98-107 odnv=971) CO2 (BEAKER) (test 20 meq/L 22-29 jhui=520) BLOOD UREA NITROGEN 58 mg/dL 7-21 (BEAKER) (test zjjr=478) CREATININE (BEAKER) (test 5.50 mg/dL 0.57-1.25 uhrj=299) GLUCOSE RANDOM (BEAKER) 209 mg/dL 70-105 (test vrdx=225) CALCIUM (BEAKER) (test 9.1 mg/dL 8.4-10.2 skci=923) EGFR (BEAKER) (test 8 mL/min/1.73 sq m ESTIMATED GFR IS NOT puxc=1234) ACCURATE CREATININE CLEARANCE IN PREDICTING GLOMERULAR FILTRATION RATE. ESTIMATED GFR IS NOT APPLICABLE FOR DIALYSIS PATIENTS. [id number] 07:52:00 Test Item Value Reference Range Comments PHOSPHORUS (BEAKER) (test xojs=881) 5.8 mg/dL 2.3-4.7 [id number] 07:52:00 Test Item Value Reference Range Comments MAGNESIUM (BEAKER) (test dgjl=618) 1.8 mg/dL 1.6-2.6 POCT-GLUCOSE [id number] 07:41:00 Test Item Value Reference Range Comments POC-GLUCOSE METER (BEAKER) 226 mg/dL 70-110 TESTED AT [facility] [address] [facility] (test vxhp=4083) [place] [address] B-TYPE NATRIURETIC FACTOR (BNP)[id number] 07:06:00 Test Item Value Reference Range Comments B-TYPE NATRIURETIC PEPTIDE (BEAKER) (test 306 pg/mL 0-100 hcdb=063) CBC W/PLT COUNT & AUTO [id number] 06:50:00 Test Item Value Reference Range Comments WHITE BLOOD CELL COUNT (BEAKER) (test rncv=503) 13.0 K/ L 3.5-10.5 RED BLOOD CELL COUNT (BEAKER) (test ndbd=988) 3.00 M/ L 3.93-5.22 HEMOGLOBIN (BEAKER) (test kvtz=987) 8.9 GM/DL 11.2-15.7 HEMATOCRIT (BEAKER) (test qvpo=481) 27.7 % 34.1-44.9 MEAN CORPUSCULAR VOLUME (BEAKER) (test wwcg=468) 92.3 fL 79.4-94.8 MEAN CORPUSCULAR HEMOGLOBIN (BEAKER) (test 29.7 pg 25.6-32.2 peny=705) MEAN CORPUSCULAR HEMOGLOBIN CONC (BEAKER) (test 32.1 GM/DL 32.2-35.5 rtjd=809) RED CELL DISTRIBUTION WIDTH (BEAKER) (test 15.8 % 11.7-14.4 cgtk=693) PLATELET COUNT (BEAKER) (test smoa=423) 370 K/CU MM 150-450 MEAN PLATELET VOLUME (BEAKER) (test byjy=223) 11.7 fL 9.4-12.3 NUCLEATED RED BLOOD CELLS (BEAKER) (test 0 /100 WBC 0-0 zete=594) NEUTROPHILS RELATIVE PERCENT (BEAKER) (test 69 % yqng=449) LYMPHOCYTES RELATIVE PERCENT (BEAKER) (test 17 % kwie=490) MONOCYTES RELATIVE PERCENT (BEAKER) (test 10 % vfsn=960) EOSINOPHILS RELATIVE PERCENT (BEAKER) (test 2 % rmtd=550) BASOPHILS RELATIVE PERCENT (BEAKER) (test 1 % cqps=491) NEUTROPHILS ABSOLUTE COUNT (BEAKER) (test 8.88 K/ L 1.56-6.13 hroa=090) LYMPHOCYTES ABSOLUTE COUNT (BEAKER) (test 2.26 K/ L 1.18-3.74 dlpa=177) MONOCYTES ABSOLUTE COUNT (BEAKER) (test 1.29 K/ L 0.24-0.36 prxi=282) EOSINOPHILS ABSOLUTE COUNT (BEAKER) (test 0.31 K/ L 0.04-0.36 tpcc=180) BASOPHILS ABSOLUTE COUNT (BEAKER) (test 0.06 K/ L 0.01-0.08 vqpu=150) IMMATURE GRANULOCYTES-RELATIVE PERCENT (BEAKER) 1 % 0-1 (test rpiw=7508) POCT-GLUCOSE [id number] 21:57:00 Test Item Value Reference Range Comments POC-GLUCOSE METER (BEAKER) 328 mg/dL 70-110 Will Repeat Test/TESTED AT (test wdnj=1326) [place] [id number] POCT-GLUCOSE [id number] 12:39:00 Test Item Value Reference Range Comments POC-GLUCOSE METER (BEAKER) 309 mg/dL 70-110 TESTED AT [address] (test ohmj=5130) [place] [address] POCT-GLUCOSE [id number] 08:32:00 Test Item Value Reference Range Comments POC-GLUCOSE METER (BEAKER) 204 mg/dL 70-110 TESTED AT [address] (test qacn=2735) [facility] [address] BASIC METABOLIC [id number] 05:23:00 Test Item Value Reference Range Comments SODIUM (BEAKER) (test 134 meq/L 136-145 ttgu=776) POTASSIUM (BEAKER) (test 4.3 meq/L 3.5-5.1 dkxj=878) CHLORIDE (BEAKER) (test 99 meq/L 98-107 dlmi=278) CO2 (BEAKER) (test 24 meq/L 22-29 urcv=891) BLOOD UREA NITROGEN 37 mg/dL 7-21 (BEAKER) (test bkny=317) CREATININE (BEAKER) (test 4.04 mg/dL 0.57-1.25 ujad=269) GLUCOSE RANDOM (BEAKER) 124 mg/dL 70-105 (test puil=887) CALCIUM (BEAKER) (test 9.3 mg/dL 8.4-10.2 livq=015) EGFR (BEAKER) (test 11 mL/min/1.73 sq m ESTIMATED GFR IS NOT mwka=9735) ACCURATE CREATININE CLEARANCE IN PREDICTING GLOMERULAR FILTRATION RATE. ESTIMATED GFR IS NOT APPLICABLE FOR DIALYSIS PATIENTS. [id number] 05:20:00 Test Item Value Reference Range Comments PHOSPHORUS (BEAKER) (test yzim=745) 4.4 mg/dL 2.3-4.7 [id number] 05:20:00 Test Item Value Reference Range Comments MAGNESIUM (BEAKER) (test fjhe=010) 1.9 mg/dL 1.6-2.6 CBC W/PLT COUNT & AUTO [id number] 04:48:00 Test Item Value Reference Range Comments WHITE BLOOD CELL COUNT (BEAKER) (test gxjz=822) 11.8 K/ L 3.5-10.5 RED BLOOD CELL COUNT (BEAKER) (test xbrf=453) 3.22 M/ L 3.93-5.22 HEMOGLOBIN (BEAKER) (test fktg=088) 9.4 GM/DL 11.2-15.7 HEMATOCRIT (BEAKER) (test sshm=858) 30.2 % 34.1-44.9 MEAN CORPUSCULAR VOLUME (BEAKER) (test ncgb=113) 93.8 fL 79.4-94.8 MEAN CORPUSCULAR HEMOGLOBIN (BEAKER) (test 29.2 pg 25.6-32.2 aahh=127) MEAN CORPUSCULAR HEMOGLOBIN CONC (BEAKER) (test 31.1 GM/DL 32.2-35.5 ersh=381) RED CELL DISTRIBUTION WIDTH (BEAKER) (test 15.7 % 11.7-14.4 pycj=640) PLATELET COUNT (BEAKER) (test kinn=365) 358 K/CU MM 150-450 MEAN PLATELET VOLUME (BEAKER) (test jdgk=388) 11.7 fL 9.4-12.3 NUCLEATED RED BLOOD CELLS (BEAKER) (test 0 /100 WBC 0-0 udtm=786) NEUTROPHILS RELATIVE PERCENT (BEAKER) (test 65 % tmfr=173) LYMPHOCYTES RELATIVE PERCENT (BEAKER) (test 19 % ntrq=313) MONOCYTES RELATIVE PERCENT (BEAKER) (test 10 % yaab=305) EOSINOPHILS RELATIVE PERCENT (BEAKER) (test 3 % mdfs=083) BASOPHILS RELATIVE PERCENT (BEAKER) (test 1 % tjxq=419) NEUTROPHILS ABSOLUTE COUNT (BEAKER) (test 7.73 K/ L 1.56-6.13 nxiq=210) LYMPHOCYTES ABSOLUTE COUNT (BEAKER) (test 2.29 K/ L 1.18-3.74 ighz=094) MONOCYTES ABSOLUTE COUNT (BEAKER) (test 1.20 K/ L 0.24-0.36 lobp=651) EOSINOPHILS ABSOLUTE COUNT (BEAKER) (test 0.38 K/ L 0.04-0.36 snoj=366) BASOPHILS ABSOLUTE COUNT (BEAKER) (test 0.07 K/ L 0.01-0.08 hjrc=447) IMMATURE GRANULOCYTES-RELATIVE PERCENT (BEAKER) 1 % 0-1 (test wyke=5858) POCT-GLUCOSE [id number] 22:03:00 Test Item Value Reference Range Comments POC-GLUCOSE METER (BEAKER) 152 mg/dL 70-110 TESTED AT [address] (test xwjt=8907) [place] [id number] POCT-GLUCOSE [id number] 18:20:00 Test Item Value Reference Range Comments POC-GLUCOSE METER (BEAKER) 255 mg/dL 70-110 TESTED AT [address] (test bjit=6177) [place] [address] POCT-GLUCOSE [id number] 12:27:00 Test Item Value Reference Range Comments POC-GLUCOSE METER (BEAKER) 315 mg/dL 70-110 Notified SAMAN HERNANDEZ/TESTED AT [facility] (test esol=7211) [address] [place], [place] [id number] POCT-GLUCOSE [id number] 08:05:00 Test Item Value Reference Range Comments POC-GLUCOSE METER (BEAKER) 198 mg/dL 70-110 TESTED AT [address] (test ghxm=4130) [place] [id number] CALCIUM, [id number] 05:39:00 Test Item Value Reference Range Comments CALCIUM IONIZED (BEAKER) (test zznh=824) 1.12 mmol/L 1.12-1.27 PH, BLOOD (BEAKER) (test iita=2343) 7.41 COMPREHENSIVE METABOLIC [id number] 04:53:00 Test Item Value Reference Range Comments TOTAL PROTEIN (BEAKER) 7.2 gm/dL 6.0-8.3 (test twvd=178) ALBUMIN (BEAKER) (test 3.2 g/dL 3.5-5.0 oegv=8723) ALKALINE PHOSPHATASE 212 U/L 40-150 (BEAKER) (test rpze=421) BILIRUBIN TOTAL (BEAKER) 0.3 mg/dL 0.2-1.2 (test ojoj=565) SODIUM (BEAKER) (test 135 meq/L 136-145 gpql=525) POTASSIUM (BEAKER) (test 3.8 meq/L 3.5-5.1 jgvg=390) CHLORIDE (BEAKER) (test 98 meq/L 98-107 dypt=722) CO2 (BEAKER) (test 27 meq/L 22-29 hivg=308) BLOOD UREA NITROGEN 18 mg/dL 7-21 (BEAKER) (test mmcm=459) CREATININE (BEAKER) (test 2.42 mg/dL 0.57-1.25 oltt=079) GLUCOSE RANDOM (BEAKER) 211 mg/dL 70-105 (test otpi=190) CALCIUM (BEAKER) (test 9.1 mg/dL 8.4-10.2 oyai=886) AST (SGOT) (BEAKER) (test 35 U/L 5-34 jqjs=883) ALT (SGPT) (BEAKER) (test 28 U/L 6-55 kdpd=657) EGFR (BEAKER) (test 20 mL/min/1.73 sq m ESTIMATED GFR IS NOT yxbd=9973) ACCURATE CREATININE CLEARANCE IN PREDICTING GLOMERULAR FILTRATION RATE. ESTIMATED GFR IS NOT APPLICABLE FOR DIALYSIS PATIENTS. [id number] 04:47:00 Test Item Value Reference Range Comments PHOSPHORUS (BEAKER) (test czii=515) 3.5 mg/dL 2.3-4.7 [id number] 04:47:00 Test Item Value Reference Range Comments MAGNESIUM (BEAKER) (test rair=607) 1.8 mg/dL 1.6-2.6 CBC W/PLT COUNT & AUTO [id number] 04:24:00 Test Item Value Reference Range Comments WHITE BLOOD CELL COUNT (BEAKER) (test bpkk=062) 9.7 K/ L 3.5-10.5 RED BLOOD CELL COUNT (BEAKER) (test upyi=018) 3.14 M/ L 3.93-5.22 HEMOGLOBIN (BEAKER) (test tvam=636) 9.1 GM/DL 11.2-15.7 HEMATOCRIT (BEAKER) (test wzcd=079) 29.2 % 34.1-44.9 MEAN CORPUSCULAR VOLUME (BEAKER) (test swrf=915) 93.0 fL 79.4-94.8 MEAN CORPUSCULAR HEMOGLOBIN (BEAKER) (test 29.0 pg 25.6-32.2 heqb=337) MEAN CORPUSCULAR HEMOGLOBIN CONC (BEAKER) (test 31.2 GM/DL 32.2-35.5 zqvt=851) RED CELL DISTRIBUTION WIDTH (BEAKER) (test 15.9 % 11.7-14.4 dgfq=177) PLATELET COUNT (BEAKER) (test nacx=197) 331 K/CU MM 150-450 MEAN PLATELET VOLUME (BEAKER) (test ttsm=205) 11.4 fL 9.4-12.3 NUCLEATED RED BLOOD CELLS (BEAKER) (test 0 /100 WBC 0-0 yzag=370) NEUTROPHILS RELATIVE PERCENT (BEAKER) (test 62 % fkme=388) LYMPHOCYTES RELATIVE PERCENT (BEAKER) (test 20 % cnfh=655) MONOCYTES RELATIVE PERCENT (BEAKER) (test 14 % sguy=001) EOSINOPHILS RELATIVE PERCENT (BEAKER) (test 3 % wfvx=937) BASOPHILS RELATIVE PERCENT (BEAKER) (test 0 % livd=349) NEUTROPHILS ABSOLUTE COUNT (BEAKER) (test 6.00 K/ L 1.56-6.13 fnki=533) LYMPHOCYTES ABSOLUTE COUNT (BEAKER) (test 1.89 K/ L 1.18-3.74 zsjn=870) MONOCYTES ABSOLUTE COUNT (BEAKER) (test 1.31 K/ L 0.24-0.36 fese=904) EOSINOPHILS ABSOLUTE COUNT (BEAKER) (test 0.29 K/ L 0.04-0.36 inrr=073) BASOPHILS ABSOLUTE COUNT (BEAKER) (test 0.04 K/ L 0.01-0.08 vcey=765) IMMATURE GRANULOCYTES-RELATIVE PERCENT (BEAKER) 1 % 0-1 (test trnw=1315) POCT-GLUCOSE [id number] 22:46:00 Test Item Value Reference Range Comments POC-GLUCOSE METER (BEAKER) 266 mg/dL 70-110 TESTED AT [address] (test geke=7221) [facility] [address] POCT-GLUCOSE [id number] 17:28:00 Test Item Value Reference Range Comments POC-GLUCOSE METER (BEAKER) 194 mg/dL 70-110 TESTED AT [address] (test bhqh=8389) [facility] [address] POCT-GLUCOSE [id number] 12:03:00 Test Item Value Reference Range Comments POC-GLUCOSE METER (BEAKER) 305 mg/dL 70-110 TESTED AT [address] (test nsuh=9616) [facility] [address] POCT-GLUCOSE [id number] 08:46:00 Test Item Value Reference Range Comments POC-GLUCOSE METER (BEAKER) 210 mg/dL 70-110 TESTED AT [address] (test fjwm=7489) [facility] [address] CBC W/PLT COUNT & AUTO [id number] 06:41:00 Test Item Value Reference Range Comments WHITE BLOOD CELL COUNT (BEAKER) (test xqhj=275) 9.6 K/ L 3.5-10.5 RED BLOOD CELL COUNT (BEAKER) (test albu=305) 2.98 M/ L 3.93-5.22 HEMOGLOBIN (BEAKER) (test vwus=973) 8.7 GM/DL 11.2-15.7 HEMATOCRIT (BEAKER) (test gony=356) 27.8 % 34.1-44.9 MEAN CORPUSCULAR VOLUME (BEAKER) (test varp=680) 93.3 fL 79.4-94.8 MEAN CORPUSCULAR HEMOGLOBIN (BEAKER) (test 29.2 pg 25.6-32.2 eagz=653) MEAN CORPUSCULAR HEMOGLOBIN CONC (BEAKER) (test 31.3 GM/DL 32.2-35.5 pwcm=519) RED CELL DISTRIBUTION WIDTH (BEAKER) (test 15.7 % 11.7-14.4 bkim=605) PLATELET COUNT (BEAKER) (test dubi=700) 284 K/CU MM 150-450 MEAN PLATELET VOLUME (BEAKER) (test cihw=569) 11.8 fL 9.4-12.3 NUCLEATED RED BLOOD CELLS (BEAKER) (test 0 /100 WBC 0-0 geng=578) NEUTROPHILS RELATIVE PERCENT (BEAKER) (test 62 % dkpi=666) LYMPHOCYTES RELATIVE PERCENT (BEAKER) (test 18 % wpft=871) MONOCYTES RELATIVE PERCENT (BEAKER) (test 16 % vyte=453) EOSINOPHILS RELATIVE PERCENT (BEAKER) (test 2 % ylnv=452) BASOPHILS RELATIVE PERCENT (BEAKER) (test 1 % qziw=292) NEUTROPHILS ABSOLUTE COUNT (BEAKER) (test 5.87 K/ L 1.56-6.13 bpdq=407) LYMPHOCYTES ABSOLUTE COUNT (BEAKER) (test 1.73 K/ L 1.18-3.74 wear=744) MONOCYTES ABSOLUTE COUNT (BEAKER) (test 1.50 K/ L 0.24-0.36 eywx=477) EOSINOPHILS ABSOLUTE COUNT (BEAKER) (test 0.23 K/ L 0.04-0.36 gkfx=169) BASOPHILS ABSOLUTE COUNT (BEAKER) (test 0.05 K/ L 0.01-0.08 urek=398) IMMATURE GRANULOCYTES-RELATIVE PERCENT (BEAKER) 2 % 0-1 (test vzps=8502) BASIC METABOLIC [id number] 05:42:00 Test Item Value Reference Range Comments SODIUM (BEAKER) (test 133 meq/L 136-145 gcmn=935) POTASSIUM (BEAKER) (test 4.1 meq/L 3.5-5.1 nzda=482) CHLORIDE (BEAKER) (test 98 meq/L 98-107 ilig=741) CO2 (BEAKER) (test 23 meq/L 22-29 jvxa=715) BLOOD UREA NITROGEN 37 mg/dL 7-21 (BEAKER) (test svne=122) CREATININE (BEAKER) (test 3.70 mg/dL 0.57-1.25 epju=430) GLUCOSE RANDOM (BEAKER) 202 mg/dL 70-105 (test jdwj=360) CALCIUM (BEAKER) (test 8.9 mg/dL 8.4-10.2 oqdr=688) EGFR (BEAKER) (test 12 mL/min/1.73 sq m ESTIMATED GFR IS NOT bpbq=8310) ACCURATE CREATININE CLEARANCE IN PREDICTING GLOMERULAR FILTRATION RATE. ESTIMATED GFR IS NOT APPLICABLE FOR DIALYSIS PATIENTS. [id number] 05:35:00 Test Item Value Reference Range Comments MAGNESIUM (BEAKER) (test gwjt=196) 1.9 mg/dL 1.6-2.6 POCT-GLUCOSE [id number] 01:12:00 Test Item Value Reference Range Comments POC-GLUCOSE METER (BEAKER) 293 mg/dL 70-110 TESTED AT [facility] [address] (test urpl=2704) [facility] [address] POCT-GLUCOSE [id number] 01:12:00 Test Item Value Reference Range Comments POC-GLUCOSE METER (BEAKER) 327 mg/dL 70-110 TESTED AT [address] (test wzyi=5351) [facility] [address] ANG, TUNNELED CATHETER [id number] 14:50:00Reason for exam:->need tdc/hdFINAL REPORT Tunneled dialysis catheter insertion , 05/24/2018. History: Renal failure. Modality: Sonography and fluoroscopy. Sedation: Versed 1 mg and fentanyl 50 mcg was given intravenously for conscious sedation. Vital signs were monitored throughout the procedure by a nurse, and remained stable. Physician intra-service time was 20 minutes. Bowling Floor Desk Clerk: Meenakshi. Financial Systems Analyst: None. Approach: Right internal jugular vein Estimated blood loss: < 5 cc. Specimen: None. Fluoroscopy Time: 0.1 min. Dose (Ka,r): 2.3 mGy. Technique: Informed written consent was obtained. Discussion of risks, benefits, and alternativeswere made with the patient. The patient expressed understanding and agreed to proceed. All elementsmaximal sterile barrier technique was utilized for this procedure, including utilization of sterile scrub solution for skin prep, a large sterile sheet to cover the areas of the patient that were not prepped, and hand hygiene, mask, head covering, and sterile gown for performing radiologist and scrub technologist. The skin was anesthetized with 2% lidocaine.Ultrasound evaluation showed a patent and compressible right internal jugular vein, which was punctured under direct real-time ultrasound guidance with a micropuncture needle. An ultrasound image was saved to PACS. A 0.018 inch wire was placed through the needle into the right atrium. A 4 Nigerien micropuncture sheath was placed. A subcutaneous tunnel was created in the right anterior chest wall by blunt dissection. A 19 cm 15.5 Nigerien Duraflow 2 catheter was brought through the tunnel. The vessel tract was serially dilated over a J- wire. A peel-away sheath was placed in the right IJ vein and the catheter was advanced through the sheath, with its distal tip terminating in the right atrium. The peel-away sheath was removed. The ports were flushed and aspirated easily following placement. The catheter was sutured to the skin with 2-0silk to secure its placement. The small jugular incision site was closed using resorbable suture. Vital signs were monitored throughout the procedure by a nurse, and remained stable. The patient tolerated the procedure well and left the department in the same condition. The patient was given 1 gramof Ancef intravenously during the procedure. Results: Spot radiograph of the chest demonstrates thenew dialysis catheter to lie in the expected position with its tip overlying the superior right atrium. Impression: Successful, uncomplicated placement of a right internal jugular tunneled dialysis catheter using sonographic and fluoroscopic guidance and conscious sedation. Signed : Michael Arrieta MDReport Verified Date/Time: 05/25/2018 14:50:11 Reading Location: [address] Body Reading Room POCT-GLUCOSE [id number] 12:19: 00 Test Item Value Reference Range Comments POC-GLUCOSE METER (BEAKER) 197 mg/dL 70-110 TESTED AT [facility] [address] [place] [address] (test wglo=8988) [facility] [address] BASIC METABOLIC [id number] 06:48:00 Test Item Value Reference Range Comments SODIUM (BEAKER) (test 138 meq/L 136-145 hscc=491) POTASSIUM (BEAKER) (test 3.9 meq/L 3.5-5.1 tvmq=630) CHLORIDE (BEAKER) (test 99 meq/L 98-107 jehl=386) CO2 (BEAKER) (test 30 meq/L 22-29 jwdn=177) BLOOD UREA NITROGEN 20 mg/dL 7-21 (BEAKER) (test kyrp=017) CREATININE (BEAKER) (test 2.47 mg/dL 0.57-1.25 muca=183) GLUCOSE RANDOM (BEAKER) 85 mg/dL 70-105 (test mqos=324) CALCIUM (BEAKER) (test 9.3 mg/dL 8.4-10.2 hcnn=135) EGFR (BEAKER) (test 20 mL/min/1.73 sq m ESTIMATED GFR IS NOT gdau=5209) ACCURATE CREATININE CLEARANCE IN PREDICTING GLOMERULAR FILTRATION RATE. ESTIMATED GFR IS NOT APPLICABLE FOR DIALYSIS PATIENTS. [id number] 06:43:00 Test Item Value Reference Range Comments PHOSPHORUS (BEAKER) (test iigi=412) 4.0 mg/dL 2.3-4.7 [id number] 06:43:00 Test Item Value Reference Range Comments MAGNESIUM (BEAKER) (test xcno=867) 2.0 mg/dL 1.6-2.6 POCT-GLUCOSE [id number] 06:36:00 Test Item Value Reference Range Comments POC-GLUCOSE METER (BEAKER) 84 mg/dL 70-110 TESTED AT [facility] [address] [facility] (test wyzq=0187) [facility] [address] CBC W/PLT COUNT & AUTO [id number] 06:12:00 Test Item Value Reference Range Comments WHITE BLOOD CELL COUNT (BEAKER) (test kajk=285) 9.9 K/ L 3.5-10.5 RED BLOOD CELL COUNT (BEAKER) (test pcim=296) 3.30 M/ L 3.93-5.22 HEMOGLOBIN (BEAKER) (test chzo=265) 9.6 GM/DL 11.2-15.7 HEMATOCRIT (BEAKER) (test frai=423) 30.8 % 34.1-44.9 MEAN CORPUSCULAR VOLUME (BEAKER) (test dbyi=807) 93.3 fL 79.4-94.8 MEAN CORPUSCULAR HEMOGLOBIN (BEAKER) (test 29.1 pg 25.6-32.2 wgpj=205) MEAN CORPUSCULAR HEMOGLOBIN CONC (BEAKER) (test 31.2 GM/DL 32.2-35.5 jlsz=618) RED CELL DISTRIBUTION WIDTH (BEAKER) (test 15.6 % 11.7-14.4 pnto=442) PLATELET COUNT (BEAKER) (test ikxe=726) 287 K/CU MM 150-450 MEAN PLATELET VOLUME (BEAKER) (test cchd=357) 11.7 fL 9.4-12.3 NUCLEATED RED BLOOD CELLS (BEAKER) (test 0 /100 WBC 0-0 laux=649) NEUTROPHILS RELATIVE PERCENT (BEAKER) (test 68 % scgy=371) LYMPHOCYTES RELATIVE PERCENT (BEAKER) (test 12 % impg=543) MONOCYTES RELATIVE PERCENT (BEAKER) (test 14 % lqek=154) EOSINOPHILS RELATIVE PERCENT (BEAKER) (test 3 % eihh=417) BASOPHILS RELATIVE PERCENT (BEAKER) (test 1 % eyta=373) NEUTROPHILS ABSOLUTE COUNT (BEAKER) (test 6.79 K/ L 1.56-6.13 qqfz=967) LYMPHOCYTES ABSOLUTE COUNT (BEAKER) (test 1.23 K/ L 1.18-3.74 iohw=450) MONOCYTES ABSOLUTE COUNT (BEAKER) (test 1.43 K/ L 0.24-0.36 jkca=456) EOSINOPHILS ABSOLUTE COUNT (BEAKER) (test 0.31 K/ L 0.04-0.36 pouy=328) BASOPHILS ABSOLUTE COUNT (BEAKER) (test 0.05 K/ L 0.01-0.08 lutt=348) IMMATURE GRANULOCYTES-RELATIVE PERCENT (BEAKER) 1 % 0-1 (test qzrs=4268) POCT-GLUCOSE [id number] 23:53:00 Test Item Value Reference Range Comments POC-GLUCOSE METER (BEAKER) 88 mg/dL 70-110 TESTED AT [address] (test cqdz=7922) [facility] [address] POCT-GLUCOSE [id number] 17:24:00 Test Item Value Reference Range Comments POC-GLUCOSE METER (BEAKER) 125 mg/dL 70-110 TESTED AT [address] (test uvml=5298) [facility] [address] POCT-GLUCOSE [id number] 12:00:00 Test Item Value Reference Range Comments POC-GLUCOSE METER (BEAKER) 110 mg/dL 70-110 TESTED AT [address] (test hhed=9056) [facility] [address] PROTHROMBIN [id number] 09:56:00 Test Item Value Reference Range Comments PROTIME (BEAKER) (test xjnv=895) 14.5 seconds 11.7-14.7 INR (BEAKER) (test xpny=409) 1.1 <=5.9 RECOMMENDED COUMADIN/WARFARIN INR THERAPY RANGESSTANDARD DOSE: 2.0 - 3.0 Includes: PROPHYLAXIS forvenous thrombosis, systemic embolization; TREATMENT for venous thrombosis and/or pulmonary embolus.HIGH RISK: Target INR is 2.5-3.5 for patients with mechanical heart valves.POCT-GLUCOSE [id number] 07:54:00 Test Item Value Reference Range Comments POC-GLUCOSE METER (BEAKER) 110 mg/dL 70-110 TESTED AT [facility] [address] (test nusu=3492) [facility] [address] BASIC METABOLIC [id number] 05:57:00 Test Item Value Reference Range Comments SODIUM (BEAKER) (test 139 meq/L 136-145 ighk=351) POTASSIUM (BEAKER) (test 3.5 meq/L 3.5-5.1 ofhx=901) CHLORIDE (BEAKER) (test 103 meq/L 98-107 wnur=425) CO2 (BEAKER) (test 27 meq/L 22-29 cwfh=738) BLOOD UREA NITROGEN 26 mg/dL 7-21 (BEAKER) (test cryt=927) CREATININE (BEAKER) (test 2.77 mg/dL 0.57-1.25 hrbj=624) GLUCOSE RANDOM (BEAKER) 65 mg/dL 70-105 (test nuot=378) CALCIUM (BEAKER) (test 9.1 mg/dL 8.4-10.2 gopf=175) EGFR (BEAKER) (test 17 mL/min/1.73 sq m ESTIMATED GFR IS NOT hybr=9672) ACCURATE CREATININE CLEARANCE IN PREDICTING GLOMERULAR FILTRATION RATE. ESTIMATED GFR IS NOT APPLICABLE FOR DIALYSIS PATIENTS. [id number] 05:56:00 Test Item Value Reference Range Comments MAGNESIUM (BEAKER) (test hgbb=959) 2.0 mg/dL 1.6-2.6 CBC W/PLT COUNT & AUTO [id number] 05:34:00 Test Item Value Reference Range Comments WHITE BLOOD CELL COUNT (BEAKER) (test imdl=796) 9.8 K/ L 3.5-10.5 RED BLOOD CELL COUNT (BEAKER) (test psuy=763) 2.92 M/ L 3.93-5.22 HEMOGLOBIN (BEAKER) (test rkvv=807) 8.5 GM/DL 11.2-15.7 HEMATOCRIT (BEAKER) (test pqem=224) 27.1 % 34.1-44.9 MEAN CORPUSCULAR VOLUME (BEAKER) (test zrik=183) 92.8 fL 79.4-94.8 MEAN CORPUSCULAR HEMOGLOBIN (BEAKER) (test 29.1 pg 25.6-32.2 zvmq=025) MEAN CORPUSCULAR HEMOGLOBIN CONC (BEAKER) (test 31.4 GM/DL 32.2-35.5 torh=862) RED CELL DISTRIBUTION WIDTH (BEAKER) (test 15.0 % 11.7-14.4 xbfu=139) PLATELET COUNT (BEAKER) (test hdvb=536) 245 K/CU MM 150-450 MEAN PLATELET VOLUME (BEAKER) (test mykr=461) 11.3 fL 9.4-12.3 NUCLEATED RED BLOOD CELLS (BEAKER) (test 0 /100 WBC 0-0 jzte=270) NEUTROPHILS RELATIVE PERCENT (BEAKER) (test 59 % vtpb=686) LYMPHOCYTES RELATIVE PERCENT (BEAKER) (test 18 % pruh=980) MONOCYTES RELATIVE PERCENT (BEAKER) (test 15 % plol=121) EOSINOPHILS RELATIVE PERCENT (BEAKER) (test 6 % rjbf=530) BASOPHILS RELATIVE PERCENT (BEAKER) (test 1 % uwbu=297) NEUTROPHILS ABSOLUTE COUNT (BEAKER) (test 5.73 K/ L 1.56-6.13 eumr=385) LYMPHOCYTES ABSOLUTE COUNT (BEAKER) (test 1.72 K/ L 1.18-3.74 xcqx=907) MONOCYTES ABSOLUTE COUNT (BEAKER) (test 1.46 K/ L 0.24-0.36 eknm=854) EOSINOPHILS ABSOLUTE COUNT (BEAKER) (test 0.55 K/ L 0.04-0.36 nhqx=392) BASOPHILS ABSOLUTE COUNT (BEAKER) (test 0.07 K/ L 0.01-0.08 ovjm=671) IMMATURE GRANULOCYTES-RELATIVE PERCENT (BEAKER) 3 % 0-1 (test tlen=9788) POCT-GLUCOSE [id number] 00:45:00 Test Item Value Reference Range Comments POC-GLUCOSE METER (BEAKER) 95 mg/dL 70-110 TESTED AT [address] (test ndkm=2618) [facility] [address] POCT-GLUCOSE [id number] 17:11:00 Test Item Value Reference Range Comments POC-GLUCOSE METER (BEAKER) 247 mg/dL 70-110 TESTED AT [address] (test jgum=5854) [facility] [address] POCT-GLUCOSE [id number] 13:00:00 Test Item Value Reference Range Comments POC-GLUCOSE METER (BEAKER) 182 mg/dL 70-110 TESTED AT [facility] [address] [facility] (test ciea=1977) [facility] [address] BASIC METABOLIC [id number] 06:26:00 Test Item Value Reference Range Comments SODIUM (BEAKER) (test 138 meq/L 136-145 znpx=168) POTASSIUM (BEAKER) (test 3.6 meq/L 3.5-5.1 woaz=310) CHLORIDE (BEAKER) (test 101 meq/L 98-107 kyji=297) CO2 (BEAKER) (test 29 meq/L 22-29 omte=243) BLOOD UREA NITROGEN 16 mg/dL 7-21 (BEAKER) (test exrn=375) CREATININE (BEAKER) (test 1.74 mg/dL 0.57-1.25 trpe=083) GLUCOSE RANDOM (BEAKER) 146 mg/dL 70-105 (test zazf=233) CALCIUM (BEAKER) (test 9.0 mg/dL 8.4-10.2 ilgq=416) EGFR (BEAKER) (test 29 mL/min/1.73 sq m ESTIMATED GFR IS NOT rpyf=2820) ACCURATE CREATININE CLEARANCE IN PREDICTING GLOMERULAR FILTRATION RATE. ESTIMATED GFR IS NOT APPLICABLE FOR DIALYSIS PATIENTS. [id number] 06:21:00 Test Item Value Reference Range Comments MAGNESIUM (BEAKER) (test lfhm=613) 2.0 mg/dL 1.6-2.6 CBC W/PLT COUNT & AUTO [id number] 05:54:00 Test Item Value Reference Range Comments WHITE BLOOD CELL COUNT (BEAKER) (test ufqr=167) 9.2 K/ L 3.5-10.5 RED BLOOD CELL COUNT (BEAKER) (test kkgx=882) 2.92 M/ L 3.93-5.22 HEMOGLOBIN (BEAKER) (test xhrc=031) 8.6 GM/DL 11.2-15.7 HEMATOCRIT (BEAKER) (test qgoa=602) 27.0 % 34.1-44.9 MEAN CORPUSCULAR VOLUME (BEAKER) (test lbhh=844) 92.5 fL 79.4-94.8 MEAN CORPUSCULAR HEMOGLOBIN (BEAKER) (test 29.5 pg 25.6-32.2 jhag=623) MEAN CORPUSCULAR HEMOGLOBIN CONC (BEAKER) (test 31.9 GM/DL 32.2-35.5 jvub=148) RED CELL DISTRIBUTION WIDTH (BEAKER) (test 14.9 % 11.7-14.4 nelg=982) PLATELET COUNT (BEAKER) (test arcc=302) 197 K/CU MM 150-450 MEAN PLATELET VOLUME (BEAKER) (test igjp=362) 11.8 fL 9.4-12.3 NUCLEATED RED BLOOD CELLS (BEAKER) (test 0 /100 WBC 0-0 glmw=833) NEUTROPHILS RELATIVE PERCENT (BEAKER) (test 60 % aivt=269) LYMPHOCYTES RELATIVE PERCENT (BEAKER) (test 16 % iwtn=677) MONOCYTES RELATIVE PERCENT (BEAKER) (test 13 % fszw=271) EOSINOPHILS RELATIVE PERCENT (BEAKER) (test 7 % rjfk=245) BASOPHILS RELATIVE PERCENT (BEAKER) (test 1 % bjkq=786) NEUTROPHILS ABSOLUTE COUNT (BEAKER) (test 5.47 K/ L 1.56-6.13 xbzx=973) LYMPHOCYTES ABSOLUTE COUNT (BEAKER) (test 1.45 K/ L 1.18-3.74 ehmd=697) MONOCYTES ABSOLUTE COUNT (BEAKER) (test 1.19 K/ L 0.24-0.36 bjpw=304) EOSINOPHILS ABSOLUTE COUNT (BEAKER) (test 0.62 K/ L 0.04-0.36 sutb=811) BASOPHILS ABSOLUTE COUNT (BEAKER) (test 0.10 K/ L 0.01-0.08 kfrf=906) IMMATURE GRANULOCYTES-RELATIVE PERCENT (BEAKER) 4 % 0-1 (test hbgv=3913) POCT-GLUCOSE [id number] 05:47:00 Test Item Value Reference Range Comments POC-GLUCOSE METER (BEAKER) 154 mg/dL 70-110 TESTED AT [address] (test rqhh=5530) [facility] [address] POCT-GLUCOSE [id number] 00:16:00 Test Item Value Reference Range Comments POC-GLUCOSE METER (BEAKER) 218 mg/dL 70-110 TESTED AT [address] (test jmyk=3910) [facility] [address] RAD, CHEST, 1 VIEW, NON [id number] 19:44:00Reason for exam:->HD line placement Should this be performed at the bedside?->YesFINAL REPORT Chest dated 05/22/2018 COMPARISON: Same day Clinical Information : HD line placement Comment: Heart is enlarged. Pulmonary vasculature is indistinct. Airspace diseaseis seen bilaterally suggestive of pulmonary edema or pneumonia improved since prior study. No pleural effusion or pneumothorax is seen. Right IJ central venous catheter and right PICC line remain in place. Nasogastric tube has been removed. Impression: Interval improvement of airspace disease. Signed:Clovis Fischer MDReport Verified Date/Time: 05/22/2018 19:44:26 Reading Location: [address] ConsultReading Room POCT-GLUCOSE [id number] 17:46:00 Test Item Value Reference Range Comments POC-GLUCOSE METER (BEAKER) 284 mg/dL 70-110 TESTED AT [facility] [address] [facility] (test qydy=0202) [facility] [address] SPUTUM CULTURE + GRAM [id number] 14:30:00 Test Item Value Reference Range Comments CULTURE (BEAKER) (test xbjc=2453) See comment GRAM STAIN RESULT (BEAKER) (test 2+ WBCs heer=5393) GRAM STAIN RESULT (BEAKER) (test 0-5 epithelial cells gaqt=256213) GRAM STAIN RESULT (BEAKER) (test <1+ gram negative rods vpdw=856811) <1+ yeastNo normal respiratory lor presentPOCT-GLUCOSE [id number] 12: 16:00 Test Item Value Reference Range Comments POC-GLUCOSE METER (BEAKER) 302 mg/dL 70-110 TESTED AT [facility] [address] [facility] (test ctxf=7978) [facility] [address] RAD, CHEST, 1 VIEW, NON [id number] 07:34:00Reason for exam:-> pneumoniaShould this be performed at the bedside?->YesFINAL REPORT RAD, CHEST, 1 VIEW, NON DEPT INDICATION: pneumonia COMPARISON: Prior day's exam FINDINGS: Portable frontal view of the chest. IMPRESSION: Support Lines: Endotracheal tube has been removed. Remaining support hardware is stable. Lungs and pleura: Increasing patchy bilateral airspace disease with superimposed interstitial congestion. Appearance is concerning for multifocal pneumonia. No effusion or pneumothorax.Heart and mediastinum: Stable contours. Additional findings: None. Signed: JR Manoj, Olga SKINNEReport Verified Date/Time: 05/22/2018 07:34:31 Reading Location: [facility] C013V Neuro Reading Room BLOOD [id number] 07:01:00 Test Item Value Reference Range Comments CULTURE (BEAKER) (test vrbo=4504) No growth in 5 days BLOOD [id number] 07:01:00 Test Item Value Reference Range Comments CULTURE (BEAKER) (test skag=6719) No growth in 5 days BASIC METABOLIC [id number] 06:19:00 Test Item Value Reference Range Comments SODIUM (BEAKER) (test 140 meq/L 136-145 tofa=551) POTASSIUM (BEAKER) (test 3.7 meq/L 3.5-5.1 hhjp=865) CHLORIDE (BEAKER) (test 101 meq/L 98-107 estt=876) CO2 (BEAKER) (test 29 meq/L 22-29 bdjl=802) BLOOD UREA NITROGEN 35 mg/dL 7-21 (BEAKER) (test ldut=679) CREATININE (BEAKER) (test 2.45 mg/dL 0.57-1.25 otsj=628) GLUCOSE RANDOM (BEAKER) 221 mg/dL 70-105 (test sirk=162) CALCIUM (BEAKER) (test 8.7 mg/dL 8.4-10.2 erxs=118) EGFR (BEAKER) (test 20 mL/min/1.73 sq m ESTIMATED GFR IS NOT lvhr=4233) ACCURATE CREATININE CLEARANCE IN PREDICTING GLOMERULAR FILTRATION RATE. ESTIMATED GFR IS NOT APPLICABLE FOR DIALYSIS PATIENTS. [id number] 06:17:00 Test Item Value Reference Range Comments PHOSPHORUS (BEAKER) (test jola=322) 2.5 mg/dL 2.3-4.7 [id number] 06:17:00 Test Item Value Reference Range Comments MAGNESIUM (BEAKER) (test doqm=747) 2.1 mg/dL 1.6-2.6 CBC W/PLT COUNT & AUTO [id number] 05:56:00 Test Item Value Reference Range Comments WHITE BLOOD CELL COUNT (BEAKER) (test sjxa=508) 7.2 K/ L 3.5-10.5 RED BLOOD CELL COUNT (BEAKER) (test zbnn=352) 2.66 M/ L 3.93-5.22 HEMOGLOBIN (BEAKER) (test zxem=829) 7.8 GM/DL 11.2-15.7 HEMATOCRIT (BEAKER) (test yyxc=488) 24.5 % 34.1-44.9 MEAN CORPUSCULAR VOLUME (BEAKER) (test mayd=194) 92.1 fL 79.4-94.8 MEAN CORPUSCULAR HEMOGLOBIN (BEAKER) (test 29.3 pg 25.6-32.2 qckd=392) MEAN CORPUSCULAR HEMOGLOBIN CONC (BEAKER) (test 31.8 GM/DL 32.2-35.5 xnly=967) RED CELL DISTRIBUTION WIDTH (BEAKER) (test 14.8 % 11.7-14.4 ssza=276) PLATELET COUNT (BEAKER) (test mauq=425) 164 K/CU MM 150-450 MEAN PLATELET VOLUME (BEAKER) (test twtr=492) 12.0 fL 9.4-12.3 NUCLEATED RED BLOOD CELLS (BEAKER) (test 0 /100 WBC 0-0 bzti=139) NEUTROPHILS RELATIVE PERCENT (BEAKER) (test 60 % exfo=979) LYMPHOCYTES RELATIVE PERCENT (BEAKER) (test 15 % pxva=681) MONOCYTES RELATIVE PERCENT (BEAKER) (test 16 % xlbn=247) EOSINOPHILS RELATIVE PERCENT (BEAKER) (test 4 % uehz=277) BASOPHILS RELATIVE PERCENT (BEAKER) (test 1 % khfm=168) NEUTROPHILS ABSOLUTE COUNT (BEAKER) (test 4.36 K/ L 1.56-6.13 dsxq=349) LYMPHOCYTES ABSOLUTE COUNT (BEAKER) (test 1.10 K/ L 1.18-3.74 nlsn=107) MONOCYTES ABSOLUTE COUNT (BEAKER) (test 1.16 K/ L 0.24-0.36 zvtt=002) EOSINOPHILS ABSOLUTE COUNT (BEAKER) (test 0.28 K/ L 0.04-0.36 dwbv=163) BASOPHILS ABSOLUTE COUNT (BEAKER) (test 0.05 K/ L 0.01-0.08 blfs=982) IMMATURE GRANULOCYTES-RELATIVE PERCENT (BEAKER) 4 % 0-1 (test tloh=4100) POCT-GLUCOSE [id number] 17:46:00 Test Item Value Reference Range Comments POC-GLUCOSE METER (BEAKER) 147 mg/dL 70-110 TESTED AT [facility] [address] (test uxpx=6014) [facility] [address] RESPIRATORY PANEL [id number] 14:16:00 Test Item Value Reference Range Comments HUMAN METAPNEUMOVIRUS (BEAKER) (test Not detected Not detected, Equivocal tftw=4856) RHINOVIRUS (BEAKER) (test gcbx=0767) Not detected Not detected, Equivocal INFLUENZA A (BEAKER) (test yvev=9533) Not detected Not detected, Equivocal INFLUENZA A (NO SUBTYPE) (test Not detected, Equivocal iieq=3844) INFLUENZA A SUBTYPE H1 (BEAKER) (test Not detected, Equivocal xlri=8775) INFLUENZA A SUBTYPE H3 (BEAKER) (test Not detected, Equivocal xsgf=1121) INFLUENZA A SUBTYPE H1-2009 (BEAKER) Not detected, Equivocal (test jxkn=6641) INFLUENZA B (BEAKER) (test vomi=6432) Not detected Not detected, Equivocal RESPIRATORY SYNCYTIAL VIRUS (BEAKER) Not detected Not detected, Equivocal (test uwyq=6783) PARAINFLUENZA VIRUS 1 (BEAKER) (test Not detected Not detected, Equivocal tljd=9769) PARAINFLUENZA VIRUS 2 (BEAKER) (test Not detected Not detected, Equivocal fycw=8328) PARAINFLUENZA VIRUS 3 (BEAKER) (test Not detected Not detected, Equivocal jqvx=8570) PARAINFLUENZA VIRUS 4 (BEAKER) (test Not detected Not detected, Equivocal fmth=2818) ADENOVIRUS (BEAKER) (test zphi=8611) Not detected Not detected, Equivocal CORONAVIRUS 229E (BEAKER) (test Not detected Not detected, Equivocal ixll=2929) CORONAVIRUS HKU1 (BEAKER) (test Not detected Not detected, Equivocal eemn=4669) CORONAVIRUS NL63 (BEAKER) (test Not detected Not detected, Equivocal wieu=1087) CORONAVIRUS OC43 (BEAKER) (test Not detected Not detected, Equivocal akxb=8501) BORDETELLA PERTUSSIS (BEAKER) (test Not detected Not detected, Equivocal nwvx=0157) CHLAMYDOPHILA PNEUMONIAE (BEAKER) (test Not detected Not detected, Equivocal ozll=9959) MYCOPLASMA PNEUMONIAE (BEAKER) (test Not detected Not detected, Equivocal wwyc=2903) Other viruses and bacteria not targeted by this PCR panel cannot be excluded; therefore clinical correlation and follow up of serology, culture results, and other molecular studies is required. The results are not intended to be used as the sole means for clinical diagnosis or patient management decisions. This sample was tested at the [facility]ostics Laboratory using the [place] [employer] Respiratory Panel. It is FDA cleared and has been verified and approved by the [facility] for clinical use on nasal swab specimens. It is not FDA-cleared for use on bronchial wash/lavage samples. However, for this sample type, validation was performed and test characteristics were determined and approved, by [facility] for clinical use under the Clinical Laboratory Improvement Amendments (CLIA) of 1988 requirements. Therefore, FDA clearance isnot required. This laboratory is CLIA-certified and [employer] ([employer])-accredited to perform high complexity testing.POCT-GLUCOSE [id number] 13:35:00 Test Item Value Reference Range Comments POC-GLUCOSE METER (BEAKER) 228 mg/dL 70-110 TESTED AT [facility] [address] (test gkuc=2120) [facility] [address] BLOOD GAS, [id number] 10:42:00 Test Item Value Reference Range Comments PH ARTERIAL (BEAKER) (test izhu=085) 7.41 7.35-7.45 PCO2 ARTERIAL (BEAKER) (test avyz=203) 42 mmHg 35-45 PO2 ARTERIAL (BEAKER) (test rlrt=806) 167 mmHg 80-90 O2 SATURATION ARTERIAL (BEAKER) (test mxbc=759) 99.1 % 96.0-97.0 HCO3 ARTERIAL (BEAKER) (test enyz=374) 26 mmol/L 21-29 BASE EXCESS ARTERIAL (BEAKER) (test btlf=583) 1.0 mmol/L -2.0-3.0 PATIENT TEMPERATURE (BEAKER) (test jvcy=4599) 37.5 C FIO2 (BEAKER) (test miht=2658) 35.0 % URINE [id number] 09:06:00 Test Item Value Reference Range Comments CULTURE (BEAKER) (test >100,000 col/mL Madie glabrata nmny=8419) POCT-GLUCOSE [id number] 05:53:00 Test Item Value Reference Range Comments POC-GLUCOSE METER (BEAKER) 184 mg/dL 70-110 TESTED AT [facility] [address] (test htck=4910) [facility] [id number] RAD, CHEST, 1 VIEW, NON [id number] 05:50:00Reason for exam:-> pneumoniaShould this be performed at the bedside?->YesFINAL REPORT RAD, CHEST, 1 VIEW, NON DEPT INDICATION: pneumonia COMPARISON: Prior day's exam FINDINGS: Portable frontal view of the chest. IMPRESSION: Support Lines: Stable. Lungs and pleura: Unchanged airspace and pleural opacities. No pneumothorax.Heart and mediastinum: Stable contours. Additional findings: None. Signed: Carmel [place] Verified Date/Time: 2018 05:50:08 Reading Location: [address] Transitional Reading Room BASIC METABOLIC [id number] 05:13:00 Test Item Value Reference Range Comments SODIUM (BEAKER) (test 132 meq/L 136-145 ajhk=966) POTASSIUM (BEAKER) (test 4.3 meq/L 3.5-5.1 lusk=760) CHLORIDE (BEAKER) (test 97 meq/L 98-107 soat=696) CO2 (BEAKER) (test 25 meq/L 22-29 tdbn=648) BLOOD UREA NITROGEN 69 mg/dL 7-21 (BEAKER) (test ptwp=726) CREATININE (BEAKER) (test 3.74 mg/dL 0.57-1.25 vuqj=147) GLUCOSE RANDOM (BEAKER) 147 mg/dL 70-105 (test tuxb=601) CALCIUM (BEAKER) (test 8.8 mg/dL 8.4-10.2 qqum=132) EGFR (BEAKER) (test 12 mL/min/1.73 sq m ESTIMATED GFR IS NOT hnxg=7963) ACCURATE CREATININE CLEARANCE IN PREDICTING GLOMERULAR FILTRATION RATE. ESTIMATED GFR IS NOT APPLICABLE FOR DIALYSIS PATIENTS. [id number] 05:12:00 Test Item Value Reference Range Comments MAGNESIUM (BEAKER) (test dvpl=093) 2.5 mg/dL 1.6-2.6 CBC W/PLT COUNT & AUTO [id number] 05:04:00 Test Item Value Reference Range Comments WHITE BLOOD CELL COUNT (BEAKER) (test ijws=004) 6.6 K/ L 3.5-10.5 RED BLOOD CELL COUNT (BEAKER) (test tuka=799) 2.62 M/ L 3.93-5.22 HEMOGLOBIN (BEAKER) (test qzbz=928) 7.6 GM/DL 11.2-15.7 HEMATOCRIT (BEAKER) (test thzu=660) 24.2 % 34.1-44.9 MEAN CORPUSCULAR VOLUME (BEAKER) (test ochv=974) 92.4 fL 79.4-94.8 MEAN CORPUSCULAR HEMOGLOBIN (BEAKER) (test 29.0 pg 25.6-32.2 wybd=135) MEAN CORPUSCULAR HEMOGLOBIN CONC (BEAKER) (test 31.4 GM/DL 32.2-35.5 opdk=328) RED CELL DISTRIBUTION WIDTH (BEAKER) (test 15.0 % 11.7-14.4 puty=449) PLATELET COUNT (BEAKER) (test xjxq=238) 151 K/CU MM 150-450 MEAN PLATELET VOLUME (BEAKER) (test fzpc=686) 11.9 fL 9.4-12.3 NUCLEATED RED BLOOD CELLS (BEAKER) (test 0 /100 WBC 0-0 wdoo=110) NEUTROPHILS RELATIVE PERCENT (BEAKER) (test 56 % rkzh=424) LYMPHOCYTES RELATIVE PERCENT (BEAKER) (test 22 % udsx=844) MONOCYTES RELATIVE PERCENT (BEAKER) (test 16 % nmpm=395) EOSINOPHILS RELATIVE PERCENT (BEAKER) (test 5 % zafp=961) BASOPHILS RELATIVE PERCENT (BEAKER) (test 1 % ahuo=253) NEUTROPHILS ABSOLUTE COUNT (BEAKER) (test 3.68 K/ L 1.56-6.13 ygst=744) LYMPHOCYTES ABSOLUTE COUNT (BEAKER) (test 1.42 K/ L 1.18-3.74 svgo=603) MONOCYTES ABSOLUTE COUNT (BEAKER) (test 1.08 K/ L 0.24-0.36 reab=688) EOSINOPHILS ABSOLUTE COUNT (BEAKER) (test 0.35 K/ L 0.04-0.36 sndq=183) BASOPHILS ABSOLUTE COUNT (BEAKER) (test 0.03 K/ L 0.01-0.08 zuip=211) IMMATURE GRANULOCYTES-RELATIVE PERCENT (BEAKER) 1 % 0-1 (test sqae=4903) POCT-GLUCOSE [id number] 01:14:00 Test Item Value Reference Range Comments POC-GLUCOSE METER (BEAKER) 215 mg/dL 70-110 TESTED AT [address] (test umxr=8961) [facility] [address] POCT-GLUCOSE [id number] 17:46:00 Test Item Value Reference Range Comments POC-GLUCOSE METER (BEAKER) 170 mg/dL 70-110 TESTED AT [address] (test gqrs=3007) [facility] [address] POCT-GLUCOSE [id number] 12:14:00 Test Item Value Reference Range Comments POC-GLUCOSE METER (BEAKER) 300 mg/dL 70-110 TESTED AT [address] (test wsbb=7810) [facility] [address] POCT-GLUCOSE [id number] 06:46:00 Test Item Value Reference Range Comments POC-GLUCOSE METER (BEAKER) 178 mg/dL 70-110 TESTED AT [address] (test zklt=7210) [facility] [address] RAD, CHEST, 1 VIEW, NON [id number] 06:23:00Reason for exam:-> pneumoniaShould this be performed at the bedside?->YesFINAL REPORT RAD, CHEST, 1 VIEW, NON DEPT INDICATION: pneumonia COMPARISON: Prior day's exam FINDINGS: Portable frontal view of the chest. IMPRESSION: Support Lines: Stable. Lungs and pleura: Mildly improved aeration of the bilateral lungs with persistent hazy reticular airspace opacities bilaterally. Persistent left retrocardiac airspace opacity. Small bilateral pleural effusions. No pneumothorax.Heart and mediastinum: Stable contours. Additional findings: None. Signed: Carmel Hale Verified Date/Time: 2018 06:23:41 Reading Location: [address] Reading Room [id number] 05:14:00 Test Item Value Reference Range Comments PHOSPHORUS (BEAKER) (test ydri=521) 4.5 mg/dL 2.3-4.7 [id number] 05:14:00 Test Item Value Reference Range Comments MAGNESIUM (BEAKER) (test hamn=568) 2.3 mg/dL 1.6-2.6 LACTATE DEHYDROGENASE (LDH)2018-05-20 05:14:00 Test Item Value Reference Range Comments LACTATE DEHYDROGENASE (BEAKER) (test gqhi=300) 169 U/L 125-220 BASIC METABOLIC [id number] 05:14:00 Test Item Value Reference Range Comments SODIUM (BEAKER) (test 135 meq/L 136-145 mxnb=232) POTASSIUM (BEAKER) (test 4.1 meq/L 3.5-5.1 rsii=993) CHLORIDE (BEAKER) (test 99 meq/L 98-107 lrno=630) CO2 (BEAKER) (test 27 meq/L 22-29 ylck=173) BLOOD UREA NITROGEN 44 mg/dL 7-21 (BEAKER) (test ahwm=972) CREATININE (BEAKER) (test 2.88 mg/dL 0.57-1.25 fisl=879) GLUCOSE RANDOM (BEAKER) 144 mg/dL 70-105 (test pqmq=167) CALCIUM (BEAKER) (test 8.7 mg/dL 8.4-10.2 vdek=630) EGFR (BEAKER) (test 16 mL/min/1.73 sq m ESTIMATED GFR IS NOT qdah=7555) ACCURATE CREATININE CLEARANCE IN PREDICTING GLOMERULAR FILTRATION RATE. ESTIMATED GFR IS NOT APPLICABLE FOR DIALYSIS PATIENTS. CBC W/PLT COUNT & AUTO [id number] 05:03:00 Test Item Value Reference Range Comments WHITE BLOOD CELL COUNT (BEAKER) (test cmjy=601) 6.1 K/ L 3.5-10.5 RED BLOOD CELL COUNT (BEAKER) (test dksg=359) 2.63 M/ L 3.93-5.22 HEMOGLOBIN (BEAKER) (test jdij=417) 7.8 GM/DL 11.2-15.7 HEMATOCRIT (BEAKER) (test fczt=669) 24.8 % 34.1-44.9 MEAN CORPUSCULAR VOLUME (BEAKER) (test sxbg=812) 94.3 fL 79.4-94.8 MEAN CORPUSCULAR HEMOGLOBIN (BEAKER) (test 29.7 pg 25.6-32.2 agsp=309) MEAN CORPUSCULAR HEMOGLOBIN CONC (BEAKER) (test 31.5 GM/DL 32.2-35.5 sjhf=878) RED CELL DISTRIBUTION WIDTH (BEAKER) (test 15.2 % 11.7-14.4 kaxp=481) PLATELET COUNT (BEAKER) (test aybd=963) 136 K/CU MM 150-450 MEAN PLATELET VOLUME (BEAKER) (test ecyi=129) 11.8 fL 9.4-12.3 NUCLEATED RED BLOOD CELLS (BEAKER) (test 0 /100 WBC 0-0 bjqz=361) NEUTROPHILS RELATIVE PERCENT (BEAKER) (test 60 % csrn=014) LYMPHOCYTES RELATIVE PERCENT (BEAKER) (test 21 % fgkk=504) MONOCYTES RELATIVE PERCENT (BEAKER) (test 11 % hkds=603) EOSINOPHILS RELATIVE PERCENT (BEAKER) (test 7 % rzjd=861) BASOPHILS RELATIVE PERCENT (BEAKER) (test 1 % ygrt=517) NEUTROPHILS ABSOLUTE COUNT (BEAKER) (test 3.67 K/ L 1.56-6.13 jejz=536) LYMPHOCYTES ABSOLUTE COUNT (BEAKER) (test 1.27 K/ L 1.18-3.74 mleh=380) MONOCYTES ABSOLUTE COUNT (BEAKER) (test 0.67 K/ L 0.24-0.36 psqp=479) EOSINOPHILS ABSOLUTE COUNT (BEAKER) (test 0.44 K/ L 0.04-0.36 tehn=048) BASOPHILS ABSOLUTE COUNT (BEAKER) (test 0.04 K/ L 0.01-0.08 jmey=494) IMMATURE GRANULOCYTES-RELATIVE PERCENT (BEAKER) 1 % 0-1 (test jwrb=8967) POCT-GLUCOSE [id number] 23:07:00 Test Item Value Reference Range Comments POC-GLUCOSE METER (BEAKER) 135 mg/dL 70-110 TESTED AT [facility] [address] [facility] (test vysk=5621) [facility] [address] MRSA [id number] 18:13:00 Test Item Value Reference Range Comments CULTURE (BEAKER) (test jweq=6000) No MRSA isolated BRONCHIAL CULTURE + GRAM [id number] 18:05:00 Test Item Value Reference Range Comments CULTURE (BEAKER) (test ggox=8298) See comment GRAM STAIN RESULT (BEAKER) (test 1+ White blood cells seen zvdq=1153) GRAM STAIN RESULT (BEAKER) (test No organisms seen lwmy=34036) <1+ yeastPOCT-GLUCOSE [id number] 18:00:00 Test Item Value Reference Range Comments POC-GLUCOSE METER (BEAKER) 197 mg/dL 70-110 TESTED AT [address] (test spem=2138) [facility] [address] CT, CHEST WITH IV CONTRAST- PE TEST [id number] 12:30:00FINAL REPORT CT Chest PE Protocol dated 05/19/2018 COMPARISON: May 10, 2018 Clinical information: Shortness of breath Technique: This exam was performed according to our departmental dose-optimization program, which includes automated exposure control, adjustment of the mA and/or kV according to patient size and/or use of interactive reconstruction technique. Precontrast axial images were obtained at pulmonary trunk level for the purpose of monitoring subsequent IV contrast. Postcontrast axial images of the chest were obtained from above the arch level to the lower chestat maximum enhancement of pulmonary artery. Delayed axial images of the entire chest were obtained subsequently. Coronal and sagittal reformations of the pulmonary arteries were performed. Comment: Heart is normal in size. Greater vessels are unremarkable. No filling detect is noted in the pulmonary trunk or pulmonary arteries. Adenopathy is seen in the paratracheal, precarinal, subcarinal, and prevascular mediastinum. The largest lymph node measures approximately 1.1 x 2.4 cm. Trachea and mainstem bronchi are patent. There is moderate bilateral pleural effusion with bibasilar subsegmental atelectasis. There is interval worsening of airspace disease in both lungs. Air bronchogram is present. The findings are suggestive multifocal pneumonia. Impression: 1. No pulmonary thromboembolism.2. Intervalworsening of the airspace disease in both lungs suggestive of multifocal pneumonia.3. Bilateral pleural effusion with bibasilar compressive atelectasis. Signed: Clovis Fischer MDReport Verified Date/Time: 12:30:51 Reading Location: [facility] [address] [place] [address] Consult Reading Room Electronicallysigned by: CLOVIS FISCHER M.D. on 05/19/2018 12:30 PMPOCT-GLUCOSE [id number] 11:55:00 Test Item Value Reference Range Comments POC-GLUCOSE METER (BEAKER) 89 mg/dL 70-110 TESTED AT [facility] [address] (test aadv=2143) [facility] [address] [id number] 10:04:00 Test Item Value Reference Range Comments PROCALCITONIN (BEAKER) (test cxpw=7323) 1.60 ng/mL <0.05 SEPSIS RISK (ng/mL)Low: 0.05-0.50Intermediate: 0.51-2.00High: & gt;=2.01BASIC METABOLIC [id number] 06:30:00 Test Item Value Reference Range Comments SODIUM (BEAKER) (test 135 meq/L 136-145 yqte=642) POTASSIUM (BEAKER) (test 3.8 meq/L 3.5-5.1 bbow=980) CHLORIDE (BEAKER) (test 98 meq/L 98-107 celn=387) CO2 (BEAKER) (test 28 meq/L 22-29 ujfw=108) BLOOD UREA NITROGEN 23 mg/dL 7-21 (BEAKER) (test zsnj=337) CREATININE (BEAKER) (test 1.95 mg/dL 0.57-1.25 odmh=013) GLUCOSE RANDOM (BEAKER) 180 mg/dL 70-105 (test droh=332) CALCIUM (BEAKER) (test 8.6 mg/dL 8.4-10.2 ysla=549) EGFR (BEAKER) (test 26 mL/min/1.73 sq m ESTIMATED GFR IS NOT tipn=8552) ACCURATE CREATININE CLEARANCE IN PREDICTING GLOMERULAR FILTRATION RATE. ESTIMATED GFR IS NOT APPLICABLE FOR DIALYSIS PATIENTS. [id number] 06:28:00 Test Item Value Reference Range Comments PHOSPHORUS (BEAKER) (test xpek=115) 3.2 mg/dL 2.3-4.7 [id number] 06:28:00 Test Item Value Reference Range Comments MAGNESIUM (BEAKER) (test jslm=963) 2.1 mg/dL 1.6-2.6 B-TYPE NATRIURETIC FACTOR (BNP)2018-05-19 06:25:00 Test Item Value Reference Range Comments B-TYPE NATRIURETIC PEPTIDE (BEAKER) (test 227 pg/mL 0-100 imqe=728) POCT-GLUCOSE [id number] 06:17:00 Test Item Value Reference Range Comments POC-GLUCOSE METER (BEAKER) 222 mg/dL 70-110 TESTED AT [facility] [address] [facility] (test ssqd=4645) [facility] [address] CBC W/PLT COUNT & AUTO [id number] 05:32:00 Test Item Value Reference Range Comments WHITE BLOOD CELL COUNT (BEAKER) (test eqyz=663) 5.8 K/ L 3.5-10.5 RED BLOOD CELL COUNT (BEAKER) (test xxko=197) 2.51 M/ L 3.93-5.22 HEMOGLOBIN (BEAKER) (test jllu=312) 7.4 GM/DL 11.2-15.7 HEMATOCRIT (BEAKER) (test pznk=898) 23.7 % 34.1-44.9 MEAN CORPUSCULAR VOLUME (BEAKER) (test lzjq=951) 94.4 fL 79.4-94.8 MEAN CORPUSCULAR HEMOGLOBIN (BEAKER) (test 29.5 pg 25.6-32.2 gnfw=132) MEAN CORPUSCULAR HEMOGLOBIN CONC (BEAKER) (test 31.2 GM/DL 32.2-35.5 lbnq=453) RED CELL DISTRIBUTION WIDTH (BEAKER) (test 15.8 % 11.7-14.4 asov=948) PLATELET COUNT (BEAKER) (test gxhw=392) 135 K/CU MM 150-450 MEAN PLATELET VOLUME (BEAKER) (test mhie=844) 11.7 fL 9.4-12.3 NUCLEATED RED BLOOD CELLS (BEAKER) (test 0 /100 WBC 0-0 zibi=125) NEUTROPHILS RELATIVE PERCENT (BEAKER) (test 72 % nrgp=846) LYMPHOCYTES RELATIVE PERCENT (BEAKER) (test 14 % kpsq=208) MONOCYTES RELATIVE PERCENT (BEAKER) (test 8 % emnh=508) EOSINOPHILS RELATIVE PERCENT (BEAKER) (test 5 % sztc=884) BASOPHILS RELATIVE PERCENT (BEAKER) (test 1 % inpv=597) NEUTROPHILS ABSOLUTE COUNT (BEAKER) (test 4.18 K/ L 1.56-6.13 jeof=782) LYMPHOCYTES ABSOLUTE COUNT (BEAKER) (test 0.83 K/ L 1.18-3.74 uioz=604) MONOCYTES ABSOLUTE COUNT (BEAKER) (test 0.45 K/ L 0.24-0.36 xltw=366) EOSINOPHILS ABSOLUTE COUNT (BEAKER) (test 0.27 K/ L 0.04-0.36 ktve=933) BASOPHILS ABSOLUTE COUNT (BEAKER) (test 0.03 K/ L 0.01-0.08 egdp=141) IMMATURE GRANULOCYTES-RELATIVE PERCENT (BEAKER) 1 % 0-1 (test enpq=9688) POCT-GLUCOSE [id number] 23:43:00 Test Item Value Reference Range Comments POC-GLUCOSE METER (BEAKER) 172 mg/dL 70-110 TESTED AT [address] (test rzsl=8195) [place] [address] POCT-GLUCOSE [id number] 18:29:00 Test Item Value Reference Range Comments POC-GLUCOSE METER (BEAKER) 149 mg/dL 70-110 TESTED AT [address] (test eavr=4586) [place] [address] HEMOGLOBIN AND [id number] 16:32:00 Test Item Value Reference Range Comments HEMOGLOBIN (BEAKER) (test tqoo=439) 8.2 GM/DL 11.2-15.7 HEMATOCRIT (BEAKER) (test mimp=450) 26.4 % 34.1-44.9 BODY FLUID CULTURE + GRAM [id number] 13:39:00 Test Item Value Reference Range Comments CULTURE (BEAKER) (test uzqj=9079) No growth GRAM STAIN RESULT (BEAKER) (test 1+ WBCs tsgm=0664) GRAM STAIN RESULT (BEAKER) (test No organisms seen gcxc=44057) POCT-GLUCOSE [id number] 11:45:00 Test Item Value Reference Range Comments POC-GLUCOSE METER (BEAKER) 79 mg/dL 70-110 TESTED AT [address] (test uadq=0250) [place] [address] HEMOGLOBIN AND [id number] 09:18:00 Test Item Value Reference Range Comments HEMOGLOBIN (BEAKER) (test asbi=834) 7.3 GM/DL 11.2-15.7 HEMATOCRIT (BEAKER) (test flal=779) 24.4 % 34.1-44.9 RAD, CHEST, 1 VIEW, NON [id number] 08:48:00Reason for exam:->acute pulmonary insufficiencyFINAL REPORT Follow up Chest radiograph Clinical History: Acute pulmonary insufficiencyComparison: MayViews: One UMANG Chest x-ray:The cardiac and mediastinal silhouettes are unchanged. There is no evidence of a pneumothorax. There is evidence of possible small bilateral pleural effusions. There is evidence of increased interstitial and airspace opacification. An endotracheal tube nasogastric tube right internal jugular catheter and right PICC line are unchanged. Impression:Worsening airspace opacification suggesting worsening bone edema and/ or superimposed inflammatory process particularly in the right lung base Signed : Cande Moyer MDReport Verified Date/Time: 05/18/2018 08:48:08 Reading Location : [facility] Radiology Reading Room POCT-GLUCOSE [id number] 06:15:00 Test Item Value Reference Range Comments POC-GLUCOSE METER (BEAKER) 107 mg/dL 70-110 TESTED AT [address] (test ldre=0714) [facility] [address] BASIC METABOLIC [id number] 04:27:00 Test Item Value Reference Range Comments SODIUM (BEAKER) (test 133 meq/L 136-145 ckjm=735) POTASSIUM (BEAKER) (test 4.7 meq/L 3.5-5.1 rmim=194) CHLORIDE (BEAKER) (test 99 meq/L 98-107 bvay=276) CO2 (BEAKER) (test 24 meq/L 22-29 chqb=235) BLOOD UREA NITROGEN 28 mg/dL 7-21 (BEAKER) (test kdfj=915) CREATININE (BEAKER) (test 2.80 mg/dL 0.57-1.25 gbmf=445) GLUCOSE RANDOM (BEAKER) 101 mg/dL 70-105 (test zcjx=773) CALCIUM (BEAKER) (test 8.6 mg/dL 8.4-10.2 hzvz=732) EGFR (BEAKER) (test 17 mL/min/1.73 sq m ESTIMATED GFR IS NOT uuwt=0854) ACCURATE CREATININE CLEARANCE IN PREDICTING GLOMERULAR FILTRATION RATE. ESTIMATED GFR IS NOT APPLICABLE FOR DIALYSIS PATIENTS. [id number] 04:26:00 Test Item Value Reference Range Comments PHOSPHORUS (BEAKER) (test gqha=748) 4.4 mg/dL 2.3-4.7 [id number] 04:26:00 Test Item Value Reference Range Comments MAGNESIUM (BEAKER) (test aahx=460) 2.7 mg/dL 1.6-2.6 HEMOGLOBIN AND [id number] 04:06:00 Test Item Value Reference Range Comments HEMOGLOBIN (BEAKER) (test bvuy=827) 7.5 GM/DL 11.2-15.7 HEMATOCRIT (BEAKER) (test ermj=958) 24.6 % 34.1-44.9 CBC W/PLT COUNT & AUTO [id number] 04:06:00 Test Item Value Reference Range Comments WHITE BLOOD CELL COUNT (BEAKER) (test twhs=795) 8.4 K/ L 3.5-10.5 RED BLOOD CELL COUNT (BEAKER) (test yvph=172) 2.59 M/ L 3.93-5.22 HEMOGLOBIN (BEAKER) (test blrq=278) 7.5 GM/DL 11.2-15.7 HEMATOCRIT (BEAKER) (test fovt=309) 24.6 % 34.1-44.9 MEAN CORPUSCULAR VOLUME (BEAKER) (test moyn=829) 95.0 fL 79.4-94.8 MEAN CORPUSCULAR HEMOGLOBIN (BEAKER) (test 29.0 pg 25.6-32.2 djwb=878) MEAN CORPUSCULAR HEMOGLOBIN CONC (BEAKER) (test 30.5 GM/DL 32.2-35.5 zris=744) RED CELL DISTRIBUTION WIDTH (BEAKER) (test 16.1 % 11.7-14.4 ttpu=177) PLATELET COUNT (BEAKER) (test lszq=933) 146 K/CU MM 150-450 MEAN PLATELET VOLUME (BEAKER) (test uuew=275) 11.9 fL 9.4-12.3 NUCLEATED RED BLOOD CELLS (BEAKER) (test 0 /100 WBC 0-0 mapi=803) NEUTROPHILS RELATIVE PERCENT (BEAKER) (test 75 % bzfi=888) LYMPHOCYTES RELATIVE PERCENT (BEAKER) (test 12 % bkpb=847) MONOCYTES RELATIVE PERCENT (BEAKER) (test 7 % jlwt=547) EOSINOPHILS RELATIVE PERCENT (BEAKER) (test 5 % aqeq=081) BASOPHILS RELATIVE PERCENT (BEAKER) (test 1 % uwfc=443) NEUTROPHILS ABSOLUTE COUNT (BEAKER) (test 6.33 K/ L 1.56-6.13 kdkm=787) LYMPHOCYTES ABSOLUTE COUNT (BEAKER) (test 0.99 K/ L 1.18-3.74 gdav=466) MONOCYTES ABSOLUTE COUNT (BEAKER) (test 0.60 K/ L 0.24-0.36 mqik=358) EOSINOPHILS ABSOLUTE COUNT (BEAKER) (test 0.38 K/ L 0.04-0.36 iilq=105) BASOPHILS ABSOLUTE COUNT (BEAKER) (test 0.06 K/ L 0.01-0.08 fobt=775) IMMATURE GRANULOCYTES-RELATIVE PERCENT (BEAKER) 0 % 0-1 (test xpnw=0032) HEMOGLOBIN AND [id number] 00:12:00 Test Item Value Reference Range Comments HEMOGLOBIN (BEAKER) (test hknc=776) 8.0 GM/DL 11.2-15.7 HEMATOCRIT (BEAKER) (test mepd=830) 25.6 % 34.1-44.9 POCT-GLUCOSE [id number] 00:12:00 Test Item Value Reference Range Comments POC-GLUCOSE METER (BEAKER) 121 mg/dL 70-110 TESTED AT [address] (test jzuk=1132) [place] [address] POCT-GLUCOSE [id number] 21:56:00 Test Item Value Reference Range Comments POC-GLUCOSE METER (BEAKER) 69 mg/dL 70-110 TESTED AT [address] (test yyhe=9848) [place] [id number] POCT-GLUCOSE [id number] 19:36:00 Test Item Value Reference Range Comments POC-GLUCOSE METER (BEAKER) 71 mg/dL 70-110 TESTED AT [address] (test qaxo=5143) [place] [address] POCT-GLUCOSE [id number] 18:23:00 Test Item Value Reference Range Comments POC-GLUCOSE METER (BEAKER) 71 mg/dL 70-110 TESTED AT [address] (test ncwy=0390) [place] [address] HEMOGLOBIN AND [id number] 17:18:00 Test Item Value Reference Range Comments HEMOGLOBIN (BEAKER) (test idff=526) 7.5 GM/DL 11.2-15.7 HEMATOCRIT (BEAKER) (test fxuj=305) 24.6 % 34.1-44.9 LEGIONELLA ANTIGEN, [id number] 12:23:00 Test Item Value Reference Range Comments L. PNEUMOPHILA SEROGP 1 Negative - see Negative for L. UR AG (BEAKER) (test comment pneumophila serogroup 1 ykrp=9522) antigen, suggesting no recent or current infection with this serogroup. Legionellosis cannot be ruled out since other serogroups and species may cause disease. STREP PNEUMONIAE [id number] 12:23:00 Test Item Value Reference Range Comments STREP PNEUMONIAE ANTIGEN Presumptive negative for Presumptive negative for (BEAKER) (test pneumococcal pneumonia - pneumococcal pneumonia - fthm=6760) see comment see commen Presumptive negative for pneumococcal pneumonia, suggesting no current or recent pneumococcal infection. Infection due to S. pneumoniae cannot be ruled out since the antigen present in the sample may be below the detection limit of the test.POCT-GLUCOSE [id number] 12:09:00 Test Item Value Reference Range Comments POC-GLUCOSE METER (BEAKER) 141 mg/dL 70-110 TESTED AT [facility] [address] [facility] (test qmom=5395) [facility] [address] POCT-GLUCOSE [id number] 09:25:00 Test Item Value Reference Range Comments POC-GLUCOSE METER (BEAKER) 142 mg/dL 70-110 TESTED AT [address] (test qgkq=7473) [facility] [address] RAD, ABDOMEN/KUB, 1 VIEW [id number] 08:21:00Reason for exam:->ileus, NG tube positionShould this be performed at the bedside?->YesFINAL REPORT Abdomen. HISTORY: Ileus, nasogastric tube position. COMPARISON STUDY: None available. FINDINGS: Two supine views of the abdomen demonstrate no dilated bowel loops but there is decreased overall bowel gas. The nasogastric tube is in place, the distal aspect projecting over the mid stomach. Surgical clips are seen. Degenerative changes are noted. Opacities are seen in the lungs. This film is insensitive for the detection of free air. IMPRESSION:1. Decreased bowel gas. No definite evidence of obstruction or ileus. Signed: Van Morales MDReport Verified Date/Time: 05/17/2018 08:21:14 Reading Location: [facility] Radiology Reading Room RAD, CHEST, 1 VIEW, NON [id number] 08:14:00Reason for exam:->ET tube position, pneumonia, pulmonary edemaShould this be performed at the bedside?->YesFINAL REPORT Portable chest. CLINICAL HISTORY: ET tube position, pneumonia, pulmonary edema. COMPARISON STUDY: Chest x-ray from yesterday. FINDINGS: The cardiac silhouette is enlarged. The pulmonary parenchyma demonstrates extensive airspace and interstitial markings, more so onthe right lung and slightly improved from previous. There has been interval dictation and insertion of a nasogastric tube The remaining support lines and tubes are unchanged. No pneumothorax is seen. Degenerative changes are noted. IMPRESSION: Interval to patient insertion of nasogastric tube. Improvement in pulmonary opacity. Signed: Van Morales MDReport Verified Date/Time: 05/17/2018 08:14: 14 Reading Location: [facility] Radiology Reading Room POCT-GLUCOSE [id number] 05:59:00 Test Item Value Reference Range Comments POC-GLUCOSE METER (BEAKER) 159 mg/dL 70-110 TESTED AT [facility] [address] [facility] (test ttkx=8443) [facility] [address] CBC (HEMOGRAM ONLY)2018-05-17 05:41:00 Test Item Value Reference Range Comments WHITE BLOOD CELL COUNT (BEAKER) (test wcqq=233) 8.1 K/ L 3.5-10.5 RED BLOOD CELL COUNT (BEAKER) (test rrfm=592) 2.27 M/ L 3.93-5.22 HEMOGLOBIN (BEAKER) (test fvig=815) 6.6 GM/DL 11.2-15.7 HEMATOCRIT (BEAKER) (test nvxz=826) 21.4 % 34.1-44.9 MEAN CORPUSCULAR VOLUME (BEAKER) (test trsv=080) 94.3 fL 79.4-94.8 MEAN CORPUSCULAR HEMOGLOBIN (BEAKER) (test 29.1 pg 25.6-32.2 meko=208) MEAN CORPUSCULAR HEMOGLOBIN CONC (BEAKER) (test 30.8 GM/DL 32.2-35.5 hyvu=341) RED CELL DISTRIBUTION WIDTH (BEAKER) (test 15.9 % 11.7-14.4 aunm=260) PLATELET COUNT (BEAKER) (test nigd=145) 153 K/CU MM 150-450 MEAN PLATELET VOLUME (BEAKER) (test fyhn=948) 12.2 fL 9.4-12.3 NUCLEATED RED BLOOD CELLS (BEAKER) (test 0 /100 WBC 0-0 wpjv=231) COMPREHENSIVE METABOLIC [id number] 04:15:00 Test Item Value Reference Range Comments TOTAL PROTEIN (BEAKER) 5.0 gm/dL 6.0-8.3 (test uzql=954) ALBUMIN (BEAKER) (test 2.2 g/dL 3.5-5.0 xfye=2572) ALKALINE PHOSPHATASE 184 U/L 40-150 (BEAKER) (test mnfb=482) BILIRUBIN TOTAL (BEAKER) 0.4 mg/dL 0.2-1.2 (test yhjp=644) SODIUM (BEAKER) (test 136 meq/L 136-145 brwl=554) POTASSIUM (BEAKER) (test 3.3 meq/L 3.5-5.1 yxbo=912) CHLORIDE (BEAKER) (test 105 meq/L 98-107 ebmd=780) CO2 (BEAKER) (test 23 meq/L 22-29 fdjn=650) BLOOD UREA NITROGEN 14 mg/dL 7-21 (BEAKER) (test ldgp=585) CREATININE (BEAKER) (test 1.55 mg/dL 0.57-1.25 qhty=895) GLUCOSE RANDOM (BEAKER) 145 mg/dL 70-105 (test mdog=276) CALCIUM (BEAKER) (test 7.2 mg/dL 8.4-10.2 vtyz=703) AST (SGOT) (BEAKER) (test 12 U/L 5-34 cjki=287) ALT (SGPT) (BEAKER) (test 14 U/L 6-55 dadt=853) EGFR (BEAKER) (test 33 mL/min/1.73 sq m ESTIMATED GFR IS NOT czzh=3605) ACCURATE CREATININE CLEARANCE IN PREDICTING GLOMERULAR FILTRATION RATE. ESTIMATED GFR IS NOT APPLICABLE FOR DIALYSIS PATIENTS. Specimen slightly [id number] 04:12:00 Test Item Value Reference Range Comments MAGNESIUM (BEAKER) (test mcxj=255) 1.4 mg/dL 1.6-2.6 CBC W/PLT COUNT & AUTO [id number] 03:55:00 Test Item Value Reference Range Comments WHITE BLOOD CELL COUNT (BEAKER) (test ijeq=713) 7.9 K/ L 3.5-10.5 RED BLOOD CELL COUNT (BEAKER) (test ewfo=916) 2.17 M/ L 3.93-5.22 HEMOGLOBIN (BEAKER) (test qbhy=207) 6.3 GM/DL 11.2-15.7 HEMATOCRIT (BEAKER) (test mqwc=568) 20.4 % 34.1-44.9 MEAN CORPUSCULAR VOLUME (BEAKER) (test pqjf=712) 94.0 fL 79.4-94.8 MEAN CORPUSCULAR HEMOGLOBIN (BEAKER) (test 29.0 pg 25.6-32.2 bajw=759) MEAN CORPUSCULAR HEMOGLOBIN CONC (BEAKER) (test 30.9 GM/DL 32.2-35.5 ohym=049) RED CELL DISTRIBUTION WIDTH (BEAKER) (test 15.6 % 11.7-14.4 tbkk=156) PLATELET COUNT (BEAKER) (test jnww=259) 131 K/CU MM 150-450 MEAN PLATELET VOLUME (BEAKER) (test symf=473) 11.6 fL 9.4-12.3 NUCLEATED RED BLOOD CELLS (BEAKER) (test 0 /100 WBC 0-0 vgno=203) NEUTROPHILS RELATIVE PERCENT (BEAKER) (test 82 % majq=837) LYMPHOCYTES RELATIVE PERCENT (BEAKER) (test 11 % qrgi=974) MONOCYTES RELATIVE PERCENT (BEAKER) (test 6 % ixsh=050) EOSINOPHILS RELATIVE PERCENT (BEAKER) (test 0 % hbes=025) BASOPHILS RELATIVE PERCENT (BEAKER) (test 0 % ipuq=074) NEUTROPHILS ABSOLUTE COUNT (BEAKER) (test 6.49 K/ L 1.56-6.13 usfv=083) LYMPHOCYTES ABSOLUTE COUNT (BEAKER) (test 0.87 K/ L 1.18-3.74 orzm=861) MONOCYTES ABSOLUTE COUNT (BEAKER) (test 0.46 K/ L 0.24-0.36 kimm=566) EOSINOPHILS ABSOLUTE COUNT (BEAKER) (test 0.02 K/ L 0.04-0.36 edoi=892) BASOPHILS ABSOLUTE COUNT (BEAKER) (test 0.03 K/ L 0.01-0.08 msat=772) IMMATURE GRANULOCYTES-RELATIVE PERCENT (BEAKER) 0 % 0-1 (test exdn=1739) BODY FLUID CELL COUNT WITH [id number] 02:05:00 Test Item Value Reference Range Comments APPEARANCE FLUID (BEAKER) (test gxci=743) Clear Clear COLOR FLUID (BEAKER) (test tdzv=871) Colorless Colorless, Straw RBC FLUID (BEAKER) (test nhol=671) 1000 /cu mm <=1 ADJUSTED WBC FLUID (BEAKER) (test zzuz=5003) 102 /cu mm <=5 LINING CELLS (BEAKER) (test ivua=7755) 31 /cu mm <=1 NEUTROPHILS FLUID (BEAKER) (test itff=0305) 45 % LYMPHS FLUID (BEAKER) (test efmm=054) 13 % MONO/MACROPHAGE FLUID (BEAKER) (test kldw=951) 39 % EOSINOPHILS FLUID (BEAKER) (test iwrw=447) 3 % BASO FLUID (BEAKER) (test jkkr=101) 0 % CONTAINER BODY FLUID (BEAKER) (test rayc=5040) EDTA Tube POCT-GLUCOSE [id number] 00:09:00 Test Item Value Reference Range Comments POC-GLUCOSE METER (BEAKER) 152 mg/dL 70-110 TESTED AT [facility] [address] [facility] (test qywu=8172) [facility] [address] BLOOD GAS, [id number] 20:56:00 Test Item Value Reference Range Comments PH ARTERIAL (BEAKER) (test jnrn=369) 7.49 7.35-7.45 PCO2 ARTERIAL (BEAKER) (test jbyc=162) 39 mmHg 35-45 PO2 ARTERIAL (BEAKER) (test kusx=322) 70 mmHg 80-90 O2 SATURATION ARTERIAL (BEAKER) (test vmsd=055) 94.9 % 96.0-97.0 HCO3 ARTERIAL (BEAKER) (test ayst=680) 29 mmol/L 21-29 BASE EXCESS ARTERIAL (BEAKER) (test qowk=243) 5.2 mmol/L -2.0-3.0 PATIENT TEMPERATURE (BEAKER) (test xnjp=6395) 37.5 C FIO2 (BEAKER) (test vckj=5297) 70.0 % POCT-GLUCOSE [id number] 18:37:00 Test Item Value Reference Range Comments POC-GLUCOSE METER (BEAKER) 128 mg/dL 70-110 TESTED AT [address] (test uwpn=7332) [place] [id number] POCT-GLUCOSE [id number] 16:09:00 Test Item Value Reference Range Comments POC-GLUCOSE METER (BEAKER) 121 mg/dL 70-110 TESTED AT [address] (test xakz=5519) [place] [address] POCT-GLUCOSE [id number] 12:21:00 Test Item Value Reference Range Comments POC-GLUCOSE METER (BEAKER) 200 mg/dL 70-110 TESTED AT [address] (test ppsz=4223) [facility] [address] RAD, CHEST, 1 VIEW, NON [id number] 12:06:00Reason for exam:->acute hypoxic respiratory failureShould this be performed at the bedside?-> YesFINAL REPORT Chest x-ray Clinical History: acute hypoxic respiratory failure Comparison: May 15, 2018 Views: 1 Chest x-ray: The cardiac and mediastinal silhouettes are prominent. There is no evidence of a pneumothorax. There is no evidence of a pleural effusion. There is no evidence of overt cardiac failure. The visible regional skeleton is intact. There is evidence of a right lung focal parenchymal opacity. Right internal jugular dialysis catheter. A right PICC line. Impression: As compared to yesterday study there is increased airspace opacification in the right lung suggesting a worsening inflammatory process. Pulmonary edema is considered less likely. Signed: Cande Moyer Verified Date/Time: 05/16/2018 12:06:49 Reading Location: [facility] Radiology Reading Room POCT-GLUCOSE [id number] 10:45:00 Test Item Value Reference Range Comments POC-GLUCOSE METER (BEAKER) 230 mg/dL 70-110 TESTED AT [address] (test dgef=1078) [facility] [address] BLOOD GAS, [id number] 10:32:00 Test Item Value Reference Range Comments PH ARTERIAL (BEAKER) (test mogq=479) 7.44 7.35-7.45 PCO2 ARTERIAL (BEAKER) (test gdgm=161) 41 mmHg 35-45 PO2 ARTERIAL (BEAKER) (test vens=084) 48 mmHg 80-90 O2 SATURATION ARTERIAL (BEAKER) (test phus=707) 85.0 % 96.0-97.0 HCO3 ARTERIAL (BEAKER) (test zche=343) 27 mmol/L 21-29 BASE EXCESS ARTERIAL (BEAKER) (test bkae=881) 2.2 mmol/L -2.0-3.0 PATIENT TEMPERATURE (BEAKER) (test cepr=5200) 37.0 C FIO2 (BEAKER) (test xvox=1835) 100.0 % POCT-GLUCOSE [id number] 09:00:00 Test Item Value Reference Range Comments POC-GLUCOSE METER (BEAKER) 195 mg/dL 70-110 TESTED AT [facility] [address] [facility] (test adfi=0297) [facility] [address] COMPREHENSIVE METABOLIC [id number] 04:53:00 Test Item Value Reference Range Comments TOTAL PROTEIN (BEAKER) 6.1 gm/dL 6.0-8.3 (test vshv=369) ALBUMIN (BEAKER) (test 2.7 g/dL 3.5-5.0 wkzs=1726) ALKALINE PHOSPHATASE 249 U/L 40-150 (BEAKER) (test zvps=606) BILIRUBIN TOTAL (BEAKER) 0.4 mg/dL 0.2-1.2 (test vyna=608) SODIUM (BEAKER) (test 133 meq/L 136-145 slmt=118) POTASSIUM (BEAKER) (test 4.0 meq/L 3.5-5.1 jtnw=606) CHLORIDE (BEAKER) (test 98 meq/L 98-107 xdxl=051) CO2 (BEAKER) (test 26 meq/L 22-29 acze=964) BLOOD UREA NITROGEN 29 mg/dL 7-21 (BEAKER) (test uwmo=995) CREATININE (BEAKER) (test 2.62 mg/dL 0.57-1.25 peqs=455) GLUCOSE RANDOM (BEAKER) 157 mg/dL 70-105 (test aqqb=094) CALCIUM (BEAKER) (test 8.5 mg/dL 8.4-10.2 jolq=799) AST (SGOT) (BEAKER) (test 21 U/L 5-34 smys=847) ALT (SGPT) (BEAKER) (test 27 U/L 6-55 dpwn=007) EGFR (BEAKER) (test 18 mL/min/1.73 sq m ESTIMATED GFR IS NOT zvxs=2158) ACCURATE CREATININE CLEARANCE IN PREDICTING GLOMERULAR FILTRATION RATE. ESTIMATED GFR IS NOT APPLICABLE FOR DIALYSIS PATIENTS. [id number] 04:51:00 Test Item Value Reference Range Comments PHOSPHORUS (BEAKER) (test flvh=411) 4.4 mg/dL 2.3-4.7 [id number] 04:51:00 Test Item Value Reference Range Comments MAGNESIUM (BEAKER) (test jpbw=078) 1.8 mg/dL 1.6-2.6 CALCIUM, [id number] 04:33:00 Test Item Value Reference Range Comments CALCIUM IONIZED (BEAKER) (test nmfj=369) 1.13 mmol/L 1.12-1.27 PH, BLOOD (BEAKER) (test ency=8714) 7.45 POCT-GLUCOSE [id number] 04:16:00 Test Item Value Reference Range Comments POC-GLUCOSE METER (BEAKER) 185 mg/dL 70-110 TESTED AT [address] (test hshu=4962) [place] [address] POCT-GLUCOSE [id number] 21:16:00 Test Item Value Reference Range Comments POC-GLUCOSE METER (BEAKER) 166 mg/dL 70-110 TESTED AT [address] (test rrbt=1306) [place] [address] POCT-GLUCOSE [id number] 18:06:00 Test Item Value Reference Range Comments POC-GLUCOSE METER (BEAKER) 193 mg/dL 70-110 TESTED AT [address] (test obgk=6212) [place] [address] PH, BODY [id number] 14:59:00 Test Item Value Reference Range Comments PH, BODY FLUID (BEAKER) (test orbr=6911) 7.75 POCT-GLUCOSE [id number] 14:54:00 Test Item Value Reference Range Comments POC-GLUCOSE METER (BEAKER) 226 mg/dL 70-110 TESTED AT [place] [address] [address] (test hdqg=8762) [facility] [address] BODY FLUID CELL COUNT WITH [id number] 14:41:00 Test Item Value Reference Range Comments APPEARANCE FLUID (BEAKER) (test kvmt=698) Cloudy Clear COLOR FLUID (BEAKER) (test efdg=894) [place] Colorless, Straw RBC FLUID (BEAKER) (test lyui=690) 3000 /cu mm <=1 ADJUSTED WBC FLUID (BEAKER) (test jvsy=2779) 205 /cu mm <=5 LINING CELLS (BEAKER) (test lkbf=4531) 2 /cu mm <=1 NEUTROPHILS FLUID (BEAKER) (test ywrg=5689) 17 % LYMPHS FLUID (BEAKER) (test vweq=597) 52 % MONO/MACROPHAGE FLUID (BEAKER) (test vemz=183) 31 % EOSINOPHILS FLUID (BEAKER) (test cylv=613) 0 % BASO FLUID (BEAKER) (test zvds=704) 0 % CONTAINER BODY FLUID (BEAKER) (test eira=6010) EDTA Tube LACTATE DEHYDROGENASE (LDH), BODY [id number] 13:26:00 Test Item Value Reference Range Comments LACTATE DEHYDROGENASE FLUID (BEAKER) < U/L Light's criteria identifies (test rfli=457) effusions if one or more are pre Absence of reference range indicates that normals have not been defined.Assay performance has not been validated for this type of specimen.PROTEIN, BODY [id number] 13:26:00 Test Item Value Reference Range Comments PROTEIN FLUID (BEAKER) (test 2.3 g/dL Light's criteria identifies diaw=401) effusions if one or more are pre Absence of reference range indicates that normals have not been defined.Assay performance has not been validated for this type of specimen.RAD, CHEST, 1 VIEW , NON [id number] 13:09:00Reason for exam:->post right thoracentesis Should this be performed at the bedside?->YesFINAL REPORT TECHNIQUE: Frontal chest radiograph dated 05/15/2018. CLINICAL HISTORY : Post right thoracentesis COMPARISON STUDY: Chest radiograph dated 05/15/2018 IMPRESSION: Rightsided vascular lines are unchanged. Bilateral airspace opacities and pleural effusions are unchanged. No pleural effusion or pneumothorax. Cardiomediastinal silhouette is stable in size. No pulmonary edema. Bones are osteopenic. Degenerative changes are seen in the spine. Signed : Macie Fraire MDReport Verified Date/Time: 05/15/2018 13:09:02 Reading Location: [facility] Radiology Reading Room RAD, CHEST, 1 VIEW, NON [id number] 11:51:00Reason for exam:->increased work of breathing/hypoxiaShould this be performed at the bedside?->YesFINAL REPORT Chest one view. Clinical history: increased work of breathing/hypoxia Comparison: May 13, 2018 Discussion: A frontal chest is provided. Cardiomediastinal contours are unchanged. Lines and tubes are in stable position. There are extensive bilateral airspace opacities, some containing air bronchogram, appearing slightly worse since the previous exam. There may be superimposed pulmonary edema. Small bilateral effusions are present. Signed: Dick Dallas Verified Date/Time: 05/15/2018 11:51:05 Reading Location: [facility] Radiology Reading Room Electronically signed by: DICK DALLAS M.D. on 2018 11:51 AMPOCT-LACTIC ACID, [id number] 11:19:00 Test Item Value Reference Range Comments POC-LACTIC ACID, ARTERIAL 0.9 mmol/L 0.4-1.3 TESTED AT [address] ([facility]) (test jdlq=8668) [facility] [address] POCT-BLOOD GASES, [id number] 11:19:00 Test Item Value Reference Range Comments TEMP, CELSIUS-POC (BEAKER) 37.0 (test dhre=5236) FIO2-POC (BEAKER) (test TESTED AT [address] wswm=1211) [place] [address] PH, ARTERIAL-POC (BEAKER) 7.377 7.350-7.450 (test qkac=5303) PCO2, ARTERIAL-POC (BEAKER) 47.3 mm Hg 35.0-45.0 (test iafi=3838) PO2, ARTERIAL-POC (BEAKER) 62.0 mm Hg 80.0-90.0 (test ehtz=8628) SO2, ARTERIAL-POC (BEAKER) 90.0 % 96.0-97.0 (test ibgu=2372) HCO3, ARTERIAL-POC (BEAKER) 27.8 meq/L 21.0-29.0 (test dxxv=4290) BASE EXCESS, ARTERIAL-POC 3.0 meq/L -2.0-3.0 (BEAKER) (test wqsk=1707) [id number] 11:19:00 Test Item Value Reference Range Comments POC-SODIUM (BEAKER) (test 133 meq/L 135-148 TESTED AT [address] jcnp=7414) [place] [address] [id number] 11:19:00 Test Item Value Reference Range Comments POC-POTASSIUM (BEAKER) (test 4.0 meq/L 3.6-5.5 TESTED AT [address] dply=6046) [place] [address] [id number] 11:19:00 Test Item Value Reference Range Comments POC-GLUCOSE (BEAKER) (test 213 mg/dL 70-110 TESTED AT [address] kvdx=8915) [place] [address] POCT-CALCIUM [id number] 11:19:00 Test Item Value Reference Range Comments POC-CALCIUM IONIZED (BEAKER) 1.14 mmol/L 1.12-1.27 TESTED AT [address] (test akwj=5454) [place] [address] [id number] 11:19:00 Test Item Value Reference Range Comments POC-HEMATOCRIT (BEAKER) (test 26 % 36-45 TESTED AT [address] hhan=9179) [place] [address] [id number] 11:19:00 Test Item Value Reference Range Comments POC-HEMOGLOBIN (BEAKER) 8.8 g/dL 12.0-15.0 TESTED AT [address] (test bker=9411) [place] [address]TESTED AT [place] [address] POCT-GLUCOSE [id number] 07:33:00 Test Item Value Reference Range Comments POC-GLUCOSE METER (BEAKER) 125 mg/dL 70-110 TESTED AT [address] (test chpa=9516) [facility] [address] POCT-GLUCOSE [id number] 05:43:00 Test Item Value Reference Range Comments POC-GLUCOSE METER (BEAKER) 89 mg/dL 70-110 TESTED AT [address] (test hbtt=0984) [facility] [address] POCT-GLUCOSE [id number] 04:37:00 Test Item Value Reference Range Comments POC-GLUCOSE METER (BEAKER) 41 mg/dL 70-110 TESTED AT [address] (test rwvk=0121) [facility] [address] COMPREHENSIVE METABOLIC [id number] 04:28:00 Test Item Value Reference Range Comments TOTAL PROTEIN (BEAKER) 6.3 gm/dL 6.0-8.3 (test qzsb=323) ALBUMIN (BEAKER) (test 2.9 g/dL 3.5-5.0 ooyl=2006) ALKALINE PHOSPHATASE 239 U/L 40-150 (BEAKER) (test ypfe=023) BILIRUBIN TOTAL (BEAKER) 0.3 mg/dL 0.2-1.2 (test dgjz=149) SODIUM (BEAKER) (test 135 meq/L 136-145 nxzg=818) POTASSIUM (BEAKER) (test 3.9 meq/L 3.5-5.1 uwnq=695) CHLORIDE (BEAKER) (test 100 meq/L 98-107 sfvl=963) CO2 (BEAKER) (test 26 meq/L 22-29 zxjh=140) BLOOD UREA NITROGEN 21 mg/dL 7-21 (BEAKER) (test wjok=541) CREATININE (BEAKER) (test 2.02 mg/dL 0.57-1.25 fgkn=876) GLUCOSE RANDOM (BEAKER) 40 mg/dL 70-105 (test qarf=509) CALCIUM (BEAKER) (test 8.5 mg/dL 8.4-10.2 alis=450) AST (SGOT) (BEAKER) (test 23 U/L 5-34 iron=385) ALT (SGPT) (BEAKER) (test 26 U/L 6-55 wnog=419) EGFR (BEAKER) (test 25 mL/min/1.73 sq m ESTIMATED GFR IS NOT lziz=1053) ACCURATE CREATININE CLEARANCE IN PREDICTING GLOMERULAR FILTRATION RATE. ESTIMATED GFR IS NOT APPLICABLE FOR DIALYSIS PATIENTS. [id number] 04:20:00 Test Item Value Reference Range Comments MAGNESIUM (BEAKER) (test bvti=000) 1.9 mg/dL 1.6-2.6 CBC W/PLT COUNT & AUTO [id number] 04:04:00 Test Item Value Reference Range Comments WHITE BLOOD CELL COUNT (BEAKER) (test dauf=247) 7.6 K/ L 3.5-10.5 RED BLOOD CELL COUNT (BEAKER) (test vrwx=318) 2.46 M/ L 3.93-5.22 HEMOGLOBIN (BEAKER) (test niyy=490) 7.2 GM/DL 11.2-15.7 HEMATOCRIT (BEAKER) (test jata=056) 23.4 % 34.1-44.9 MEAN CORPUSCULAR VOLUME (BEAKER) (test qdzc=930) 95.1 fL 79.4-94.8 MEAN CORPUSCULAR HEMOGLOBIN (BEAKER) (test 29.3 pg 25.6-32.2 frvu=928) MEAN CORPUSCULAR HEMOGLOBIN CONC (BEAKER) (test 30.8 GM/DL 32.2-35.5 dgbb=047) RED CELL DISTRIBUTION WIDTH (BEAKER) (test 15.9 % 11.7-14.4 aqcl=685) PLATELET COUNT (BEAKER) (test xgck=017) 155 K/CU MM 150-450 MEAN PLATELET VOLUME (BEAKER) (test vlxl=733) 12.5 fL 9.4-12.3 NUCLEATED RED BLOOD CELLS (BEAKER) (test 0 /100 WBC 0-0 bdoo=579) NEUTROPHILS RELATIVE PERCENT (BEAKER) (test 77 % gjht=306) LYMPHOCYTES RELATIVE PERCENT (BEAKER) (test 13 % rcay=402) MONOCYTES RELATIVE PERCENT (BEAKER) (test 8 % hokv=646) EOSINOPHILS RELATIVE PERCENT (BEAKER) (test 1 % xmlt=578) BASOPHILS RELATIVE PERCENT (BEAKER) (test 1 % ajpu=531) NEUTROPHILS ABSOLUTE COUNT (BEAKER) (test 5.81 K/ L 1.56-6.13 dvqo=945) LYMPHOCYTES ABSOLUTE COUNT (BEAKER) (test 0.96 K/ L 1.18-3.74 lnzg=638) MONOCYTES ABSOLUTE COUNT (BEAKER) (test 0.63 K/ L 0.24-0.36 wmae=862) EOSINOPHILS ABSOLUTE COUNT (BEAKER) (test 0.11 K/ L 0.04-0.36 fppo=632) BASOPHILS ABSOLUTE COUNT (BEAKER) (test 0.04 K/ L 0.01-0.08 pyxx=643) IMMATURE GRANULOCYTES-RELATIVE PERCENT (BEAKER) 1 % 0-1 (test bclx=7875) POCT-GLUCOSE [id number] 17:58:00 Test Item Value Reference Range Comments POC-GLUCOSE METER (BEAKER) 170 mg/dL 70-110 TESTED AT [address] (test wqhu=4943) [facility] [address] POCT-GLUCOSE [id number] 12:31:00 Test Item Value Reference Range Comments POC-GLUCOSE METER (BEAKER) 124 mg/dL 70-110 TESTED AT [address] (test gxso=0963) [facility] [address] PROTHROMBIN [id number] 10:38:00 Test Item Value Reference Range Comments PROTIME (BEAKER) (test levd=910) 14.4 seconds 11.7-14.7 INR (BEAKER) (test okkz=051) 1.1 <=5.9 RECOMMENDED COUMADIN/WARFARIN INR THERAPY RANGESSTANDARD DOSE: 2.0 - 3.0 Includes: PROPHYLAXIS forvenous thrombosis, systemic embolization; TREATMENT for venous thrombosis and/or pulmonary embolus.HIGH RISK: Target INR is 2.5-3.5 for patients with mechanical heart valves.B-TYPE NATRIURETIC FACTOR (BNP)2018-05 05:28:00 Test Item Value Reference Range Comments B-TYPE NATRIURETIC PEPTIDE (BEAKER) (test 336 pg/mL 0-100 nxof=704) [id number] 05:12:00 Test Item Value Reference Range Comments PHOSPHORUS (BEAKER) (test vbsg=735) 4.9 mg/dL 2.3-4.7 [id number] 05:12:00 Test Item Value Reference Range Comments MAGNESIUM (BEAKER) (test klug=073) 1.5 mg/dL 1.6-2.6 COMPREHENSIVE METABOLIC [id number] 05:12:00 Test Item Value Reference Range Comments TOTAL PROTEIN (BEAKER) 6.4 gm/dL 6.0-8.3 (test arvp=411) ALBUMIN (BEAKER) (test 2.8 g/dL 3.5-5.0 heli=3416) ALKALINE PHOSPHATASE 221 U/L 40-150 (BEAKER) (test yvwg=422) BILIRUBIN TOTAL (BEAKER) 0.3 mg/dL 0.2-1.2 (test gheg=628) SODIUM (BEAKER) (test 130 meq/L 136-145 pgas=875) POTASSIUM (BEAKER) (test 4.3 meq/L 3.5-5.1 kefe=984) CHLORIDE (BEAKER) (test 96 meq/L 98-107 dabs=092) CO2 (BEAKER) (test 25 meq/L 22-29 xazu=172) BLOOD UREA NITROGEN 35 mg/dL 7-21 (BEAKER) (test yfya=783) CREATININE (BEAKER) (test 3.26 mg/dL 0.57-1.25 rmro=640) GLUCOSE RANDOM (BEAKER) 99 mg/dL 70-105 (test sovi=990) CALCIUM (BEAKER) (test 7.6 mg/dL 8.4-10.2 dsag=749) AST (SGOT) (BEAKER) (test 20 U/L 5-34 ijnt=973) ALT (SGPT) (BEAKER) (test 22 U/L 6-55 jknk=533) EGFR (BEAKER) (test 14 mL/min/1.73 sq m ESTIMATED GFR IS NOT vjek=3620) ACCURATE CREATININE CLEARANCE IN PREDICTING GLOMERULAR FILTRATION RATE. ESTIMATED GFR IS NOT APPLICABLE FOR DIALYSIS PATIENTS. CBC W/PLT COUNT & AUTO [id number] 04:57:00 Test Item Value Reference Range Comments WHITE BLOOD CELL COUNT (BEAKER) (test tkno=829) 9.5 K/ L 3.5-10.5 RED BLOOD CELL COUNT (BEAKER) (test muxz=576) 2.63 M/ L 3.93-5.22 HEMOGLOBIN (BEAKER) (test cqiw=929) 7.5 GM/DL 11.2-15.7 HEMATOCRIT (BEAKER) (test tpdb=403) 24.9 % 34.1-44.9 MEAN CORPUSCULAR VOLUME (BEAKER) (test nfpq=884) 94.7 fL 79.4-94.8 MEAN CORPUSCULAR HEMOGLOBIN (BEAKER) (test 28.5 pg 25.6-32.2 ufrc=233) MEAN CORPUSCULAR HEMOGLOBIN CONC (BEAKER) (test 30.1 GM/DL 32.2-35.5 pgka=116) RED CELL DISTRIBUTION WIDTH (BEAKER) (test 15.9 % 11.7-14.4 stmp=780) PLATELET COUNT (BEAKER) (test pvgs=741) 164 K/CU MM 150-450 MEAN PLATELET VOLUME (BEAKER) (test njjd=040) 12.5 fL 9.4-12.3 NUCLEATED RED BLOOD CELLS (BEAKER) (test 0 /100 WBC 0-0 svzt=766) NEUTROPHILS RELATIVE PERCENT (BEAKER) (test 76 % bckt=642) LYMPHOCYTES RELATIVE PERCENT (BEAKER) (test 11 % catu=068) MONOCYTES RELATIVE PERCENT (BEAKER) (test 8 % slwj=294) EOSINOPHILS RELATIVE PERCENT (BEAKER) (test 4 % cpxj=286) BASOPHILS RELATIVE PERCENT (BEAKER) (test 1 % otyp=355) NEUTROPHILS ABSOLUTE COUNT (BEAKER) (test 7.28 K/ L 1.56-6.13 uhnq=580) LYMPHOCYTES ABSOLUTE COUNT (BEAKER) (test 1.07 K/ L 1.18-3.74 mmgu=562) MONOCYTES ABSOLUTE COUNT (BEAKER) (test 0.74 K/ L 0.24-0.36 bajj=024) EOSINOPHILS ABSOLUTE COUNT (BEAKER) (test 0.35 K/ L 0.04-0.36 ibjv=049) BASOPHILS ABSOLUTE COUNT (BEAKER) (test 0.05 K/ L 0.01-0.08 xyjz=154) IMMATURE GRANULOCYTES-RELATIVE PERCENT (BEAKER) 1 % 0-1 (test anas=5319) POCT-GLUCOSE [id number] 21:56:00 Test Item Value Reference Range Comments POC-GLUCOSE METER (BEAKER) 109 mg/dL 70-110 TESTED AT [place] [id number] [facility] (test gqsx=8198) [place] [address] POCT-GLUCOSE [id number] 17:52:00 Test Item Value Reference Range Comments POC-GLUCOSE METER (BEAKER) 122 mg/dL 70-110 TESTED AT [place] [id number] [facility] (test pgso=2121) [facility] [address] RAD, CHEST, 1 VIEW, NON [id number] 15:32:00Reason for exam:-> hypoxiaShould this be performed at the bedside?->YesFINAL REPORT TECHNIQUE: Single view of the chest. COMPARISON: 05/11/2018 at 2:32 PM FINDINGS: Extensive bilateral interstitial and airspace opacities are stable. There are bilateral moderate pleural effusions. No gross pneumothorax.No gross new lung parenchymal changes. Supportlines and tubes are stable. IMPRESSION: 1. No significant interval change. Signed: Geovani Cristina MDReport Verified Date/Time: 05/13/2018 15:32:33 Reading Location: [address] Transitional Reading Room POCT-GLUCOSE [id number] 11:50:00 Test Item Value Reference Range Comments POC-GLUCOSE METER (BEAKER) 189 mg/dL 70-110 TESTED AT [address] (test ebkq=6460) [facility] [address] POCT-GLUCOSE [id number] 08:03:00 Test Item Value Reference Range Comments POC-GLUCOSE METER (BEAKER) 226 mg/dL 70-110 TESTED AT [address] (test tgwh=5719) [facility] [address] [id number] 04:23:00 Test Item Value Reference Range Comments PHOSPHORUS (BEAKER) (test tazp=039) 3.8 mg/dL 2.3-4.7 [id number] 04:23:00 Test Item Value Reference Range Comments MAGNESIUM (BEAKER) (test cbqn=790) 1.7 mg/dL 1.6-2.6 COMPREHENSIVE METABOLIC [id number] 04:23:00 Test Item Value Reference Range Comments TOTAL PROTEIN (BEAKER) 6.0 gm/dL 6.0-8.3 (test hmds=623) ALBUMIN (BEAKER) (test 2.7 g/dL 3.5-5.0 jexm=5150) ALKALINE PHOSPHATASE 213 U/L 40-150 (BEAKER) (test looy=078) BILIRUBIN TOTAL (BEAKER) 0.3 mg/dL 0.2-1.2 (test hoik=548) SODIUM (BEAKER) (test 134 meq/L 136-145 ulpk=823) POTASSIUM (BEAKER) (test 4.1 meq/L 3.5-5.1 ksay=232) CHLORIDE (BEAKER) (test 99 meq/L 98-107 wcjn=740) CO2 (BEAKER) (test 26 meq/L 22-29 lfgj=438) BLOOD UREA NITROGEN 27 mg/dL 7-21 (BEAKER) (test rbds=493) CREATININE (BEAKER) (test 2.71 mg/dL 0.57-1.25 jqsb=062) GLUCOSE RANDOM (BEAKER) 129 mg/dL 70-105 (test zaye=707) CALCIUM (BEAKER) (test 8.2 mg/dL 8.4-10.2 bkvk=442) AST (SGOT) (BEAKER) (test 23 U/L 5-34 snlw=135) ALT (SGPT) (BEAKER) (test 27 U/L 6-55 wvod=393) EGFR (BEAKER) (test 18 mL/min/1.73 sq m ESTIMATED GFR IS NOT zmyw=2616) ACCURATE CREATININE CLEARANCE IN PREDICTING GLOMERULAR FILTRATION RATE. ESTIMATED GFR IS NOT APPLICABLE FOR DIALYSIS PATIENTS. CBC W/PLT COUNT & AUTO [id number] 04:17:00 Test Item Value Reference Range Comments WHITE BLOOD CELL COUNT (BEAKER) (test cxds=182) 8.4 K/ L 3.5-10.5 RED BLOOD CELL COUNT (BEAKER) (test jbjj=070) 2.47 M/ L 3.93-5.22 HEMOGLOBIN (BEAKER) (test xgct=803) 7.2 GM/DL 11.2-15.7 HEMATOCRIT (BEAKER) (test joxe=734) 23.5 % 34.1-44.9 MEAN CORPUSCULAR VOLUME (BEAKER) (test noyx=651) 95.1 fL 79.4-94.8 MEAN CORPUSCULAR HEMOGLOBIN (BEAKER) (test 29.1 pg 25.6-32.2 ttvv=945) MEAN CORPUSCULAR HEMOGLOBIN CONC (BEAKER) (test 30.6 GM/DL 32.2-35.5 otpq=152) RED CELL DISTRIBUTION WIDTH (BEAKER) (test 16.0 % 11.7-14.4 hvtm=354) PLATELET COUNT (BEAKER) (test yxum=197) 144 K/CU MM 150-450 MEAN PLATELET VOLUME (BEAKER) (test ftna=662) 12.6 fL 9.4-12.3 NUCLEATED RED BLOOD CELLS (BEAKER) (test 0 /100 WBC 0-0 dxac=553) NEUTROPHILS RELATIVE PERCENT (BEAKER) (test 72 % nhms=103) LYMPHOCYTES RELATIVE PERCENT (BEAKER) (test 13 % kuik=391) MONOCYTES RELATIVE PERCENT (BEAKER) (test 9 % dxwf=927) EOSINOPHILS RELATIVE PERCENT (BEAKER) (test 4 % fsgl=320) BASOPHILS RELATIVE PERCENT (BEAKER) (test 1 % pxef=019) NEUTROPHILS ABSOLUTE COUNT (BEAKER) (test 6.04 K/ L 1.56-6.13 zrwk=369) LYMPHOCYTES ABSOLUTE COUNT (BEAKER) (test 1.08 K/ L 1.18-3.74 odkk=218) MONOCYTES ABSOLUTE COUNT (BEAKER) (test 0.78 K/ L 0.24-0.36 vddh=799) EOSINOPHILS ABSOLUTE COUNT (BEAKER) (test 0.37 K/ L 0.04-0.36 lmnf=646) BASOPHILS ABSOLUTE COUNT (BEAKER) (test 0.04 K/ L 0.01-0.08 enbs=007) IMMATURE GRANULOCYTES-RELATIVE PERCENT (BEAKER) 1 % 0-1 (test okdx=5720) POCT-GLUCOSE [id number] 21:34:00 Test Item Value Reference Range Comments POC-GLUCOSE METER (BEAKER) 173 mg/dL 70-110 TESTED AT [address] (test rslw=2443) [place] [address] BLOOD [id number] 19:00:00 Test Item Value Reference Range Comments CULTURE (BEAKER) (test xoqa=1002) No growth in 5 days BLOOD [id number] 19:00:00 Test Item Value Reference Range Comments CULTURE (BEAKER) (test ibud=8727) No growth in 5 days POCT-GLUCOSE [id number] 17:19:00 Test Item Value Reference Range Comments POC-GLUCOSE METER (BEAKER) 299 mg/dL 70-110 TESTED AT [address] (test znbj=7340) [place] [id number] POCT-GLUCOSE [id number] 12:23:00 Test Item Value Reference Range Comments POC-GLUCOSE METER (BEAKER) 141 mg/dL 70-110 TESTED AT [address] (test ahpp=4647) [place] [address] BODY FLUID CULTURE + GRAM [id number] 10:00:00 Test Item Value Reference Range Comments CULTURE (BEAKER) (test nvyh=6707) No growth GRAM STAIN RESULT (BEAKER) (test <1+ WBCs emrh=1278) GRAM STAIN RESULT (BEAKER) (test No organisms seen armz=71102) POCT-GLUCOSE [id number] 07:56:00 Test Item Value Reference Range Comments POC-GLUCOSE METER (BEAKER) 116 mg/dL 70-110 TESTED AT [facility] [address] [facility] (test fsol=3516) [facility] [address] [id number] 05:35:00 Test Item Value Reference Range Comments PHOSPHORUS (BEAKER) (test gqci=393) 2.7 mg/dL 2.3-4.7 [id number] 05:35:00 Test Item Value Reference Range Comments MAGNESIUM (BEAKER) (test myjm=046) 1.6 mg/dL 1.6-2.6 COMPREHENSIVE METABOLIC [id number] 05:35:00 Test Item Value Reference Range Comments TOTAL PROTEIN (BEAKER) 6.0 gm/dL 6.0-8.3 (test sqej=338) ALBUMIN (BEAKER) (test 2.7 g/dL 3.5-5.0 qvfa=6598) ALKALINE PHOSPHATASE 204 U/L 40-150 (BEAKER) (test dtqc=626) BILIRUBIN TOTAL (BEAKER) 0.2 mg/dL 0.2-1.2 (test rkwr=590) SODIUM (BEAKER) (test 136 meq/L 136-145 fvfm=692) POTASSIUM (BEAKER) (test 3.8 meq/L 3.5-5.1 uxxx=782) CHLORIDE (BEAKER) (test 101 meq/L 98-107 joim=130) CO2 (BEAKER) (test 29 meq/L 22-29 hovi=927) BLOOD UREA NITROGEN 18 mg/dL 7-21 (BEAKER) (test sszs=274) CREATININE (BEAKER) (test 2.09 mg/dL 0.57-1.25 tbrq=010) GLUCOSE RANDOM (BEAKER) 149 mg/dL 70-105 (test xnkk=879) CALCIUM (BEAKER) (test 8.1 mg/dL 8.4-10.2 uzxu=610) AST (SGOT) (BEAKER) (test 19 U/L 5-34 wwsw=681) ALT (SGPT) (BEAKER) (test 25 U/L 6-55 etdf=149) EGFR (BEAKER) (test 24 mL/min/1.73 sq m ESTIMATED GFR IS NOT mqax=8054) ACCURATE CREATININE CLEARANCE IN PREDICTING GLOMERULAR FILTRATION RATE. ESTIMATED GFR IS NOT APPLICABLE FOR DIALYSIS PATIENTS. CBC W/PLT COUNT & AUTO [id number] 05:03:00 Test Item Value Reference Range Comments WHITE BLOOD CELL COUNT (BEAKER) (test krrr=480) 7.7 K/ L 3.5-10.5 RED BLOOD CELL COUNT (BEAKER) (test yoqz=982) 2.48 M/ L 3.93-5.22 HEMOGLOBIN (BEAKER) (test quoa=972) 7.2 GM/DL 11.2-15.7 HEMATOCRIT (BEAKER) (test bnea=576) 23.4 % 34.1-44.9 MEAN CORPUSCULAR VOLUME (BEAKER) (test egvg=811) 94.4 fL 79.4-94.8 MEAN CORPUSCULAR HEMOGLOBIN (BEAKER) (test 29.0 pg 25.6-32.2 wovn=429) MEAN CORPUSCULAR HEMOGLOBIN CONC (BEAKER) (test 30.8 GM/DL 32.2-35.5 qwqu=431) RED CELL DISTRIBUTION WIDTH (BEAKER) (test 16.0 % 11.7-14.4 tbzd=622) PLATELET COUNT (BEAKER) (test tdvf=049) 133 K/CU MM 150-450 MEAN PLATELET VOLUME (BEAKER) (test zshj=518) 12.8 fL 9.4-12.3 NUCLEATED RED BLOOD CELLS (BEAKER) (test 0 /100 WBC 0-0 iygv=808) NEUTROPHILS RELATIVE PERCENT (BEAKER) (test 74 % jlby=624) LYMPHOCYTES RELATIVE PERCENT (BEAKER) (test 12 % putk=618) MONOCYTES RELATIVE PERCENT (BEAKER) (test 9 % zpmc=091) EOSINOPHILS RELATIVE PERCENT (BEAKER) (test 4 % adgd=128) BASOPHILS RELATIVE PERCENT (BEAKER) (test 0 % ddbb=295) NEUTROPHILS ABSOLUTE COUNT (BEAKER) (test 5.75 K/ L 1.56-6.13 lvkq=919) LYMPHOCYTES ABSOLUTE COUNT (BEAKER) (test 0.92 K/ L 1.18-3.74 uuaa=818) MONOCYTES ABSOLUTE COUNT (BEAKER) (test 0.69 K/ L 0.24-0.36 sqvn=996) EOSINOPHILS ABSOLUTE COUNT (BEAKER) (test 0.29 K/ L 0.04-0.36 pyjp=026) BASOPHILS ABSOLUTE COUNT (BEAKER) (test 0.03 K/ L 0.01-0.08 rfhw=941) IMMATURE GRANULOCYTES-RELATIVE PERCENT (BEAKER) 1 % 0-1 (test zger=4541) POCT-GLUCOSE [id number] 00:49:00 Test Item Value Reference Range Comments POC-GLUCOSE METER (BEAKER) 182 mg/dL 70-110 TESTED AT [address] (test utmc=9350) [place] [id number] POCT-GLUCOSE [id number] 16:30:00 Test Item Value Reference Range Comments POC-GLUCOSE METER (BEAKER) 104 mg/dL 70-110 TESTED AT [address] (test wnnm=1461) [place] [address] RAD, CHEST, 1 VIEW, NON [id number] 15:10:00Reason for exam:->Trialysis line placement Should this be performed at the bedside?->YesFINAL REPORT TECHNIQUE: Frontal chest radiographs dated 05/11/2018. CLINICAL HISTORY: Trailysis line COMPARISON STUDY: Chest radiograph dated 2018 IMPRESSION:A central venous catheter has been placed on the right with the tip projected over the right atrium. Right-sided PICC is unchanged. Interval increase in bilateral pleural effusions with associated atelectasis. There is pulmonary vascular congestion. No pneumothorax. Cardiomediastinal silhouette is stable in size. No fracture. Signed: Macie Fraireeport Verified Date/ Time: 05/11/2018 15:10:31 Reading Location: [facility] Radiology Reading Room POCT-GLUCOSE [id number] 12:32:00 Test Item Value Reference Range Comments POC-GLUCOSE METER (BEAKER) 111 mg/dL 70-110 TESTED AT [address] (test vvmk=2396) [place] [id number] POCT-GLUCOSE [id number] 08:05:00 Test Item Value Reference Range Comments POC-GLUCOSE METER (BEAKER) 135 mg/dL 70-110 TESTED AT [facility] [address] (test rjbj=9036) [place] [address] [id number] 05:41:00 Test Item Value Reference Range Comments PROTIME (BEAKER) (test xwiu=620) 14.4 seconds 11.7-14.7 INR (BEAKER) (test pehz=164) 1.1 <=5.9 PARTIAL THROMBOPLASTIN TIME (BEAKER) (test 37.5 seconds 22.5-36.0 kpht=874) RECOMMENDED COUMADIN/WARFARIN INR THERAPY RANGESSTANDARD DOSE: 2.0 - 3.0 Includes: PROPHYLAXIS forvenous thrombosis, systemic embolization; TREATMENT for venous thrombosis and/or pulmonary embolus.HIGH RISK: Target INR is 2.5-3.5 for patients with mechanical heart valves.COMPREHENSIVE METABOLIC [id number] 05:30:00 Test Item Value Reference Range Comments TOTAL PROTEIN (BEAKER) 6.4 gm/dL 6.0-8.3 (test ejif=813) ALBUMIN (BEAKER) (test 2.9 g/dL 3.5-5.0 vqwc=2109) ALKALINE PHOSPHATASE 224 U/L 40-150 (BEAKER) (test jyzb=993) BILIRUBIN TOTAL (BEAKER) 0.3 mg/dL 0.2-1.2 (test yguv=780) SODIUM (BEAKER) (test 134 meq/L 136-145 ntlj=759) POTASSIUM (BEAKER) (test 3.9 meq/L 3.5-5.1 nlbf=214) CHLORIDE (BEAKER) (test 101 meq/L 98-107 cxsn=459) CO2 (BEAKER) (test 26 meq/L 22-29 ghob=122) BLOOD UREA NITROGEN 30 mg/dL 7-21 (BEAKER) (test ksfl=617) CREATININE (BEAKER) (test 3.21 mg/dL 0.57-1.25 lzgw=096) GLUCOSE RANDOM (BEAKER) 113 mg/dL 70-105 (test lppz=988) CALCIUM (BEAKER) (test 8.2 mg/dL 8.4-10.2 jnwh=889) AST (SGOT) (BEAKER) (test 19 U/L 5-34 tdmr=961) ALT (SGPT) (BEAKER) (test 25 U/L 6-55 yugr=524) EGFR (BEAKER) (test 14 mL/min/1.73 sq m ESTIMATED GFR IS NOT maum=1651) ACCURATE CREATININE CLEARANCE IN PREDICTING GLOMERULAR FILTRATION RATE. ESTIMATED GFR IS NOT APPLICABLE FOR DIALYSIS PATIENTS. [id number] 05:26:00 Test Item Value Reference Range Comments PHOSPHORUS (BEAKER) (test dxxx=356) 3.7 mg/dL 2.3-4.7 [id number] 05:26:00 Test Item Value Reference Range Comments MAGNESIUM (BEAKER) (test pzqo=302) 1.8 mg/dL 1.6-2.6 CBC W/PLT COUNT & AUTO [id number] 05:22:00 Test Item Value Reference Range Comments WHITE BLOOD CELL COUNT (BEAKER) (test xacr=581) 10.4 K/ L 3.5-10.5 RED BLOOD CELL COUNT (BEAKER) (test lmrv=160) 2.74 M/ L 3.93-5.22 HEMOGLOBIN (BEAKER) (test gdjc=111) 7.9 GM/DL 11.2-15.7 HEMATOCRIT (BEAKER) (test tvpd=841) 25.5 % 34.1-44.9 MEAN CORPUSCULAR VOLUME (BEAKER) (test ytiw=975) 93.1 fL 79.4-94.8 MEAN CORPUSCULAR HEMOGLOBIN (BEAKER) (test 28.8 pg 25.6-32.2 eqnr=277) MEAN CORPUSCULAR HEMOGLOBIN CONC (BEAKER) (test 31.0 GM/DL 32.2-35.5 rwkl=096) RED CELL DISTRIBUTION WIDTH (BEAKER) (test 16.3 % 11.7-14.4 imlx=761) PLATELET COUNT (BEAKER) (test mhrb=958) 155 K/CU MM 150-450 MEAN PLATELET VOLUME (BEAKER) (test wesl=986) 12.2 fL 9.4-12.3 NUCLEATED RED BLOOD CELLS (BEAKER) (test 0 /100 WBC 0-0 vncm=447) NEUTROPHILS RELATIVE PERCENT (BEAKER) (test 76 % fsln=772) LYMPHOCYTES RELATIVE PERCENT (BEAKER) (test 11 % hpva=262) MONOCYTES RELATIVE PERCENT (BEAKER) (test 9 % yudr=926) EOSINOPHILS RELATIVE PERCENT (BEAKER) (test 4 % oxtx=622) BASOPHILS RELATIVE PERCENT (BEAKER) (test 0 % uaqv=698) NEUTROPHILS ABSOLUTE COUNT (BEAKER) (test 7.95 K/ L 1.56-6.13 hqwb=212) LYMPHOCYTES ABSOLUTE COUNT (BEAKER) (test 1.10 K/ L 1.18-3.74 ybeb=179) MONOCYTES ABSOLUTE COUNT (BEAKER) (test 0.89 K/ L 0.24-0.36 yzwf=575) EOSINOPHILS ABSOLUTE COUNT (BEAKER) (test 0.36 K/ L 0.04-0.36 ruuf=263) BASOPHILS ABSOLUTE COUNT (BEAKER) (test 0.03 K/ L 0.01-0.08 dbzw=127) IMMATURE GRANULOCYTES-RELATIVE PERCENT (BEAKER) 1 % 0-1 (test dzwh=7682) POCT-GLUCOSE [id number] 03:05:00 Test Item Value Reference Range Comments POC-GLUCOSE METER (BEAKER) 192 mg/dL 70-110 TESTED AT [address] (test qszw=1635) [place] [address] POCT-GLUCOSE [id number] 03:05:00 Test Item Value Reference Range Comments POC-GLUCOSE METER (BEAKER) 165 mg/dL 70-110 TESTED AT [address] (test mpeh=6951) [place] [address] CT, CHEST, WITHOUT [id number] 18:13:00FINAL REPORT INDICATION: Shortness of breath and hypoxia. Patient and renal failure. COMPARISON:None. TECHNIQUE: Chest CT exam WITHOUT intravenous contrast. The exam was performed according to our department dose-optimization protocol, which includes automated exposure control, adjustments of mA and kV according to patient size. Iterative reconstructions are also sometimes employed. FINDINGS:Heart is enlarged, pulmonary veins are engorged, and there are bilateral moderate pleural effusions. Associated with pleural effusions is partial collapse of the basilar segments. Patchy nodular opacities in both upper lobes more so the left most likely represent superimposed pneumonia. No mediastinal lymphadenopathy. No pericardial effusion. Right PICC line terminates at the cavoatrialjunction. Thyroid gland and esophagus are unremarkable. Partial imaging the upper abdomen demonstrates apparent hepatomegaly. No suspicious osseous lesion is demonstrated. IMPRESSION: Cardiomegaly, pulmonary venous congestion, and bilateral moderate pleural effusions. Upper lobe patchy nodular opacities most likely representing pneumonia. Signed: Beau Lau Verified Date/Time: 05/10/2018 18: 13:02 Reading Location: [facility] B1 C013Y CT Body Reading Room POCT-GLUCOSE [id number] 16:48:00 Test Item Value Reference Range Comments POC-GLUCOSE METER (BEAKER) 157 mg/dL 70-110 TESTED AT [facility] [address] [facility] (test gpbz=4591) [facility] [address] CT, BRAIN, WITHOUT [id number] 15:32:00FINAL REPORT CT head without contrast 05/10/2018 3:31 PM CLINICAL HISTORY: Confusion/ delirium, altered LOC, unexplained TECHNIQUE: Axial noncontrast CT images through the head were obtained. This examination was performed according to our departmental dose optimization program, which includes automated exposure control, adjustment of the mA and/or kV according to patient size, and/or use of iterated reconstruction technique. COMPARISON: 02/16/2018 FINDINGS: There is no hemorrhage, extra-axial collection, mass, hydrocephalus, or midline shift. There is mild microvascular ischemia in the supratentorial white matter. There is atherosclerotic calcification of the intracranial arterial vasculature. There is generalized parenchymal volume loss. The visualized paranasal sinuses and mastoid air cells are well aerated. The skull is intact. IMPRESSION: No intracranial hemorrhage or mass effect. Chronic appearing microvascular and involutional changes. If concern for acute pathologypersists, further evaluation with MRI is recommended. Signed: Hernan Brennan Verified Date/Time: 05/10/2018 15:32:37 Reading Location: [facility] Radiology Reading Room WOUND CULTURE + GRAM [id number] 13:40:00 Test Item Value Reference Range Comments CULTURE (BEAKER) (test METHICILLIN RESISTANT 1+ Methicillin kvvk=0030) STAPHYLOCOCCUS AUREUS resistant Staphylococcus aureus Clindamycin (test code=10) Erythromycin (test code=4) Linezolid (test code=40) Nitrofurantoin (test code=23) Oxacillin (test code=14) Rifampin (test code=43) Tetracycline (test code=2) Trimethoprim + Sulfamethoxazole (test code=47) Vancomycin (test code=13) GRAM STAIN RESULT <1+ WBCs (BEAKER) (test jwtj=2056) GRAM STAIN RESULT <1+ gram variable (BEAKER) (test coccobacilli onra=507999) 3+ Skin floraC-REACTIVE [id number] 12:36:00 Test Item Value Reference Range Comments C-REACTIVE PROTEIN (BEAKER) (test vxiv=836) 2.43 mg/dL 0.00-0.50 BLOOD GAS, [id number] 12:09:00 Test Item Value Reference Range Comments PH ARTERIAL (BEAKER) (test anzl=768) 7.47 7.35-7.45 PCO2 ARTERIAL (BEAKER) (test lyxt=455) 39 mmHg 35-45 PO2 ARTERIAL (BEAKER) (test mxsq=440) 87 mmHg 80-90 O2 SATURATION ARTERIAL (BEAKER) (test ncax=148) 97.2 % 96.0-97.0 HCO3 ARTERIAL (BEAKER) (test agpp=938) 27 mmol/L 21-29 BASE EXCESS ARTERIAL (BEAKER) (test iwmp=149) 3.5 mmol/L -2.0-3.0 PATIENT TEMPERATURE (BEAKER) (test ghph=3094) 36.9 C FIO2 (BEAKER) (test ptzl=5300) 60.0 % POCT-GLUCOSE [id number] 10:31:00 Test Item Value Reference Range Comments POC-GLUCOSE METER (BEAKER) 141 mg/dL 70-110 TESTED AT [address] (test ztkb=0210) [facility] [address] RAD, CHEST, 1 VIEW, NON [id number] 09:55:00Reason for exam:-> hypoxicShould this be performed at the bedside?->YesFINAL REPORT CLINICAL HISTORY: hypoxic TECHNIQUE: 1 view of the chest. COMPARISON : 05/09/2018 IMPRESSION: The right PICC line is unchanged. Right asymmetric airspace opacities are unchanged. The small right pleural effusion is slightly decreased. A small left pleural effusion is unchanged. The cardiomediastinal silhouette is magnified by technique. Signed: Rossi Fry MDReport Verified Date/Time: 05/10/2018 09:55:25 Reading Location: [facility] Radiology Reading Room POCT-GLUCOSE [id number] 06:38:00 Test Item Value Reference Range Comments POC-GLUCOSE METER (BEAKER) 143 mg/dL 70-110 TESTED AT [facility] [address] [facility] (test iife=4090) [facility] [address] POCT-GLUCOSE [id number] 05:39:00 Test Item Value Reference Range Comments POC-GLUCOSE METER (BEAKER) 132 mg/dL 70-110 TESTED AT [address] (test yhuj=5708) [facility] [address] COMPREHENSIVE METABOLIC [id number] 05:02:00 Test Item Value Reference Range Comments TOTAL PROTEIN (BEAKER) 6.2 gm/dL 6.0-8.3 (test pqzj=748) ALBUMIN (BEAKER) (test 2.8 g/dL 3.5-5.0 frqf=1001) ALKALINE PHOSPHATASE 213 U/L 40-150 (BEAKER) (test nkij=442) BILIRUBIN TOTAL (BEAKER) 0.4 mg/dL 0.2-1.2 (test hpso=155) SODIUM (BEAKER) (test 137 meq/L 136-145 gfsp=912) POTASSIUM (BEAKER) (test 3.6 meq/L 3.5-5.1 kdix=916) CHLORIDE (BEAKER) (test 102 meq/L 98-107 ussh=044) CO2 (BEAKER) (test 27 meq/L 22-29 mnru=423) BLOOD UREA NITROGEN 19 mg/dL 7-21 (BEAKER) (test bgcl=156) CREATININE (BEAKER) (test 2.05 mg/dL 0.57-1.25 bzty=934) GLUCOSE RANDOM (BEAKER) 116 mg/dL 70-105 (test uzdo=625) CALCIUM (BEAKER) (test 8.2 mg/dL 8.4-10.2 uzsj=073) AST (SGOT) (BEAKER) (test 22 U/L 5-34 isoa=794) ALT (SGPT) (BEAKER) (test 27 U/L 6-55 qepd=337) EGFR (BEAKER) (test 24 mL/min/1.73 sq m ESTIMATED GFR IS NOT lwvj=4441) ACCURATE CREATININE CLEARANCE IN PREDICTING GLOMERULAR FILTRATION RATE. ESTIMATED GFR IS NOT APPLICABLE FOR DIALYSIS PATIENTS. [id number] 05:02:00 Test Item Value Reference Range Comments PROTIME (BEAKER) (test kpve=247) 14.4 seconds 11.7-14.7 INR (BEAKER) (test lhxt=778) 1.1 <=5.9 PARTIAL THROMBOPLASTIN TIME (BEAKER) (test 28.1 seconds 22.5-36.0 phts=304) RECOMMENDED COUMADIN/WARFARIN INR THERAPY RANGESSTANDARD DOSE: 2.0 - 3.0 Includes: PROPHYLAXIS forvenous thrombosis, systemic embolization; TREATMENT for venous thrombosis and/or pulmonary embolus.HIGH RISK: Target INR is 2.5-3.5 for patients with mechanical heart valves.[id number] 04:58:00 Test Item Value Reference Range Comments MAGNESIUM (BEAKER) (test fmiy=906) 1.7 mg/dL 1.6-2.6 CBC W/PLT COUNT & AUTO [id number] 04:47:00 Test Item Value Reference Range Comments WHITE BLOOD CELL COUNT (BEAKER) (test gtyz=135) 9.1 K/ L 3.5-10.5 RED BLOOD CELL COUNT (BEAKER) (test wqnl=319) 2.71 M/ L 3.93-5.22 HEMOGLOBIN (BEAKER) (test xntw=897) 7.8 GM/DL 11.2-15.7 HEMATOCRIT (BEAKER) (test fdpc=352) 25.0 % 34.1-44.9 MEAN CORPUSCULAR VOLUME (BEAKER) (test skkz=071) 92.3 fL 79.4-94.8 MEAN CORPUSCULAR HEMOGLOBIN (BEAKER) (test 28.8 pg 25.6-32.2 khwn=160) MEAN CORPUSCULAR HEMOGLOBIN CONC (BEAKER) (test 31.2 GM/DL 32.2-35.5 kxbj=129) RED CELL DISTRIBUTION WIDTH (BEAKER) (test 16.2 % 11.7-14.4 todp=782) PLATELET COUNT (BEAKER) (test tson=643) 118 K/CU MM 150-450 MEAN PLATELET VOLUME (BEAKER) (test jhep=005) 12.4 fL 9.4-12.3 NUCLEATED RED BLOOD CELLS (BEAKER) (test 0 /100 WBC 0-0 nfdr=462) NEUTROPHILS RELATIVE PERCENT (BEAKER) (test 72 % vbqm=159) LYMPHOCYTES RELATIVE PERCENT (BEAKER) (test 13 % miwr=509) MONOCYTES RELATIVE PERCENT (BEAKER) (test 9 % behe=723) EOSINOPHILS RELATIVE PERCENT (BEAKER) (test 5 % kzqh=778) BASOPHILS RELATIVE PERCENT (BEAKER) (test 0 % khpr=239) NEUTROPHILS ABSOLUTE COUNT (BEAKER) (test 6.49 K/ L 1.56-6.13 barg=728) LYMPHOCYTES ABSOLUTE COUNT (BEAKER) (test 1.22 K/ L 1.18-3.74 ktvr=190) MONOCYTES ABSOLUTE COUNT (BEAKER) (test 0.79 K/ L 0.24-0.36 rggi=547) EOSINOPHILS ABSOLUTE COUNT (BEAKER) (test 0.43 K/ L 0.04-0.36 wlwl=069) BASOPHILS ABSOLUTE COUNT (BEAKER) (test 0.03 K/ L 0.01-0.08 tsrd=048) IMMATURE GRANULOCYTES-RELATIVE PERCENT (BEAKER) 1 % 0-1 (test xfkk=4638) POCT-GLUCOSE [id number] 00:13:00 Test Item Value Reference Range Comments POC-GLUCOSE METER (BEAKER) 160 mg/dL 70-110 TESTED AT [facility] [address] [facility] (test brau=1828) [facility] [address] BODY FLUID CELL COUNT WITH [id number] 21:03:00 Test Item Value Reference Range Comments APPEARANCE FLUID (BEAKER) (test jaro=755) Slightly Hazy Clear COLOR FLUID (BEAKER) (test arrk=842) Straw Colorless, Straw RBC FLUID (BEAKER) (test nmfa=370) 224 /cu mm <=1 ADJUSTED WBC FLUID (BEAKER) (test gjum=6190) 6 /cu mm <=5 LINING CELLS (BEAKER) (test ytvw=0824) 0 /cu mm <=1 NEUTROPHILS FLUID (BEAKER) (test rxtb=6988) 17 % LYMPHS FLUID (BEAKER) (test qqht=928) 83 % MONO/MACROPHAGE FLUID (BEAKER) (test 0 % aoms=861) EOSINOPHILS FLUID (BEAKER) (test qrzp=803) 0 % BASO FLUID (BEAKER) (test czau=174) 0 % CONTAINER BODY FLUID (BEAKER) (test EDTA Tube gdrx=0735) LACTATE DEHYDROGENASE (LDH), BODY [id number] 17:59:00 Test Item Value Reference Range Comments LACTATE DEHYDROGENASE FLUID (BEAKER) < U/L Light's criteria identifies (test kwpf=308) effusions if one or more are pre Absence of reference range indicates that normals have not been defined.Assay performance has not been validated for this type of specimen.PROTEIN, BODY [id number] 17:59:00 Test Item Value Reference Range Comments PROTEIN FLUID (BEAKER) (test 2.0 g/dL Light's criteria identifies exzx=360) effusions if one or more are pre Absence of reference range indicates that normals have not been defined.Assay performance has not been validated for this type of specimen.GLUCOSE, BODY [id number] 17:59:00 Test Item Value Reference Range Comments GLUCOSE, BODY FLUID (BEAKER) (test cglu=6991) 131 mg/dL 70-110 Absence of reference range indicates that normals have not been defined.Assay performance has not been validated for this type of specimen.POCT-GLUCOSE [id number] 17:57:00 Test Item Value Reference Range Comments POC-GLUCOSE METER (BEAKER) 143 mg/dL 70-110 TESTED AT [place] [id number] [facility] (test hlkb=5348) [facility] [address] PROTEIN, [id number] 17:53:00 Test Item Value Reference Range Comments TOTAL PROTEIN (BEAKER) (test hynb=472) 6.1 gm/dL 6.0-8.3 [id number] 17:53:00 Test Item Value Reference Range Comments GLUCOSE RANDOM (BEAKER) (test wwty=902) 144 mg/dL 70-105 LACTATE DEHYDROGENASE (LDH)2018-05-09 17:53:00 Test Item Value Reference Range Comments LACTATE DEHYDROGENASE (BEAKER) (test ykal=556) 244 U/L 125-220 PH, BODY [id number] 17:48:00 Test Item Value Reference Range Comments PH, BODY FLUID (BEAKER) (test uvdx=5392) 7.84 RAD, CHEST, 1 VIEW, NON [id number] 17:13:00Reason for exam:->follow up Right thoracentesis Should this be performed at the bedside?->YesFINAL REPORT History: Right thoracentesis. FINDINGS: Compared with earlier film of the same date, the heart and mediastinum appear stable. As before, the heart is enlarged. Lung volumes remain low. Moderate bilateral pleural effusions persist. Mild lung edema is also noted and appears unchanged. No pneumothorax is identified following thoracentesis. A skinfold is seen overlyingthe right chest wall. Right upper extremity PICC line position is unchanged. Bones are unremarkable.IMPRESSION: 1. Mild lung edema and congestive failure, unchanged. Moderate bilateral pleural effusions persist. No pneumothorax is identified. Signed: Slick Cortez Verified Date/Time: 05/09/2018 17:13:12 Reading Location: [facility] C013W Consult Reading Room POCT- GLUCOSE [id number] 12:26:00 Test Item Value Reference Range Comments POC-GLUCOSE METER (BEAKER) 141 mg/dL 70-110 TESTED AT [address] (test jehi=4329) [facility] [address] [id number] 10:26:00 Test Item Value Reference Range Comments PROCALCITONIN (BEAKER) (test vxwl=1033) 0.12 ng/mL <0.05 SEPSIS RISK (ng/mL)Low: 0.05-0.50Intermediate: 0.51-2.00High: & gt;=2.01BLOOD GAS, [id number] 09:14:00 Test Item Value Reference Range Comments PH ARTERIAL (BEAKER) (test kkmp=180) 7.42 7.35-7.45 PCO2 ARTERIAL (BEAKER) (test mttt=432) 34 mmHg 35-45 PO2 ARTERIAL (BEAKER) (test esmg=234) 88 mmHg 80-90 O2 SATURATION ARTERIAL (BEAKER) (test ppmc=480) 97.0 % 96.0-97.0 HCO3 ARTERIAL (BEAKER) (test uxkm=810) 22 mmol/L 21-29 BASE EXCESS ARTERIAL (BEAKER) (test zfin=617) -2.7 mmol/L -2.0-3.0 PATIENT TEMPERATURE (BEAKER) (test ladz=1159) 36.7 C FIO2 (BEAKER) (test kwpf=4503) 80.0 % B-TYPE NATRIURETIC FACTOR (BNP)2018-05-09 09:08:00 Test Item Value Reference Range Comments B-TYPE NATRIURETIC PEPTIDE (BEAKER) (test 919 pg/mL 0-100 mzor=226) CBC W/PLT COUNT & AUTO [id number] 08:47:00 Test Item Value Reference Range Comments WHITE BLOOD CELL COUNT (BEAKER) (test fxvq=064) 9.9 K/ L 3.5-10.5 RED BLOOD CELL COUNT (BEAKER) (test vstb=913) 2.58 M/ L 3.93-5.22 HEMOGLOBIN (BEAKER) (test rpov=983) 7.5 GM/DL 11.2-15.7 HEMATOCRIT (BEAKER) (test qtqf=400) 24.2 % 34.1-44.9 MEAN CORPUSCULAR VOLUME (BEAKER) (test wfsr=797) 93.8 fL 79.4-94.8 MEAN CORPUSCULAR HEMOGLOBIN (BEAKER) (test 29.1 pg 25.6-32.2 doeg=962) MEAN CORPUSCULAR HEMOGLOBIN CONC (BEAKER) (test 31.0 GM/DL 32.2-35.5 dhro=416) RED CELL DISTRIBUTION WIDTH (BEAKER) (test 16.4 % 11.7-14.4 zpqv=163) PLATELET COUNT (BEAKER) (test yenz=908) 130 K/CU MM 150-450 MEAN PLATELET VOLUME (BEAKER) (test kjdi=782) 12.2 fL 9.4-12.3 NUCLEATED RED BLOOD CELLS (BEAKER) (test 0 /100 WBC 0-0 goho=443) NEUTROPHILS RELATIVE PERCENT (BEAKER) (test 72 % tlra=554) LYMPHOCYTES RELATIVE PERCENT (BEAKER) (test 13 % ioar=876) MONOCYTES RELATIVE PERCENT (BEAKER) (test 9 % zkim=345) EOSINOPHILS RELATIVE PERCENT (BEAKER) (test 4 % wqim=900) BASOPHILS RELATIVE PERCENT (BEAKER) (test 0 % inzz=351) NEUTROPHILS ABSOLUTE COUNT (BEAKER) (test 7.12 K/ L 1.56-6.13 didf=248) LYMPHOCYTES ABSOLUTE COUNT (BEAKER) (test 1.24 K/ L 1.18-3.74 ewsp=901) MONOCYTES ABSOLUTE COUNT (BEAKER) (test 0.90 K/ L 0.24-0.36 ttrq=612) EOSINOPHILS ABSOLUTE COUNT (BEAKER) (test 0.41 K/ L 0.04-0.36 dcri=069) BASOPHILS ABSOLUTE COUNT (BEAKER) (test 0.04 K/ L 0.01-0.08 zlsx=480) IMMATURE GRANULOCYTES-RELATIVE PERCENT (BEAKER) 2 % 0-1 (test foct=3767) POCT-GLUCOSE [id number] 07:18:00 Test Item Value Reference Range Comments POC-GLUCOSE METER (BEAKER) 244 mg/dL 70-110 TESTED AT [facility] [address] (test tpaq=4521) [facility] [address] CALCIUM, [id number] 04:58:00 Test Item Value Reference Range Comments CALCIUM IONIZED (BEAKER) (test uqrg=495) 1.08 mmol/L 1.12-1.27 PH, BLOOD (BEAKER) (test vlwr=1697) 7.38 COMPREHENSIVE METABOLIC [id number] 04:24:00 Test Item Value Reference Range Comments TOTAL PROTEIN (BEAKER) 5.7 gm/dL 6.0-8.3 (test shjl=267) ALBUMIN (BEAKER) (test 2.6 g/dL 3.5-5.0 xhfn=0293) ALKALINE PHOSPHATASE 210 U/L 40-150 (BEAKER) (test lmdj=416) BILIRUBIN TOTAL (BEAKER) 0.3 mg/dL 0.2-1.2 (test nzwf=854) SODIUM (BEAKER) (test 137 meq/L 136-145 ifly=579) POTASSIUM (BEAKER) (test 4.0 meq/L 3.5-5.1 qdns=840) CHLORIDE (BEAKER) (test 103 meq/L 98-107 xeyd=128) CO2 (BEAKER) (test 22 meq/L 22-29 cmvs=129) BLOOD UREA NITROGEN 34 mg/dL 7-21 (BEAKER) (test pdrc=685) CREATININE (BEAKER) (test 3.34 mg/dL 0.57-1.25 hgwk=007) GLUCOSE RANDOM (BEAKER) 244 mg/dL 70-105 (test kcqc=381) CALCIUM (BEAKER) (test 8.0 mg/dL 8.4-10.2 oiio=896) AST (SGOT) (BEAKER) (test 24 U/L 5-34 prnl=937) ALT (SGPT) (BEAKER) (test 30 U/L 6-55 lyhi=743) EGFR (BEAKER) (test 14 mL/min/1.73 sq m ESTIMATED GFR IS NOT lbwh=6090) ACCURATE CREATININE CLEARANCE IN PREDICTING GLOMERULAR FILTRATION RATE. ESTIMATED GFR IS NOT APPLICABLE FOR DIALYSIS PATIENTS. [id number] 04:23:00 Test Item Value Reference Range Comments PHOSPHORUS (BEAKER) (test bbqe=916) 4.1 mg/dL 2.3-4.7 [id number] 04:23:00 Test Item Value Reference Range Comments MAGNESIUM (BEAKER) (test gjue=718) 1.7 mg/dL 1.6-2.6 [id number] 04:17:00 Test Item Value Reference Range Comments PARTIAL THROMBOPLASTIN TIME (BEAKER) (test 22.4 seconds 22.5-36.0 fzoa=946) PROTHROMBIN [id number] 04:16:00 Test Item Value Reference Range Comments PROTIME (BEAKER) (test fepx=555) 14.3 seconds 11.7-14.7 INR (BEAKER) (test skeh=514) 1.1 <=5.9 RECOMMENDED COUMADIN/WARFARIN INR THERAPY RANGESSTANDARD DOSE: 2.0 - 3.0 Includes: PROPHYLAXIS forvenous thrombosis, systemic embolization; TREATMENT for venous thrombosis and/or pulmonary embolus.HIGH RISK: Target INR is 2.5-3.5 for patients with mechanical heart valves.RAD, CHEST, 1 VIEW, NON [id number] 03:26:00Reason for exam:->pleural effusionShould this be performed at the bedside?->YesFINAL REPORT CLINICAL INDICATION: Pleural effusion Comparison: 05/08/2018 The cardiomediastinal contours are stable. Central pulmonary vascular congestion and bilateral parenchymal and pleural opacities are unchanged. There is no pneumothorax. A right PICC line is stable. Signed:Newton Engleeport Verified Date/Time: 05/09/2018 03:26:29 Reading Location: [address] Reading Room POCT-GLUCOSE [id number] 23:03:00 Test Item Value Reference Range Comments POC-GLUCOSE METER (BEAKER) 181 mg/dL 70-110 TESTED AT [address] (test ikwt=9717) [facility] [address] POCT-GLUCOSE [id number] 20:41:00 Test Item Value Reference Range Comments POC-GLUCOSE METER (BEAKER) 201 mg/dL 70-110 TESTED AT [address] (test nnrg=4883) [facility] [address] POCT-GLUCOSE [id number] 18:47:00 Test Item Value Reference Range Comments POC-GLUCOSE METER (BEAKER) 242 mg/dL 70-110 TESTED AT [address] (test frxt=4625) [facility] [address] POCT-GLUCOSE [id number] 11:49:00 Test Item Value Reference Range Comments POC-GLUCOSE METER (BEAKER) 178 mg/dL 70-110 TESTED AT [address] (test njrc=1437) [facility] [address] BLOOD GAS, [id number] 11:27:00 Test Item Value Reference Range Comments PH VENOUS (BEAKER) (test adyh=310) 7.43 7.32-7.42 PCO2 VENOUS (BEAKER) (test jxak=146) 36 mmHg 41-51 PO2 VENOUS (BEAKER) (test advg=775) 65 mmHg 25-40 O2 SATURATION VENOUS (BEAKER) (test ewjm=618) 93.6 % 40.0-70.0 HCO3 VENOUS (BEAKER) (test jhwa=764) 24 mmol/L 21-29 BASE EXCESS VENOUS (BEAKER) (test udxc=037) -0.5 mmol/L -2.0-3.0 PATIENT TEMPERATURE (BEAKER) (test lfos=4655) 37.0 C FIO2 (BEAKER) (test fbop=4252) 21.0 % CBC W/PLT COUNT & AUTO [id number] 07:40:00 Test Item Value Reference Range Comments WHITE BLOOD CELL COUNT (BEAKER) (test ynxb=250) 9.2 K/ L 3.5-10.5 RED BLOOD CELL COUNT (BEAKER) (test ysga=010) 2.65 M/ L 3.93-5.22 HEMOGLOBIN (BEAKER) (test xxyi=056) 7.7 GM/DL 11.2-15.7 HEMATOCRIT (BEAKER) (test onlf=913) 24.4 % 34.1-44.9 MEAN CORPUSCULAR VOLUME (BEAKER) (test lipq=135) 92.1 fL 79.4-94.8 MEAN CORPUSCULAR HEMOGLOBIN (BEAKER) (test 29.1 pg 25.6-32.2 lxpa=189) MEAN CORPUSCULAR HEMOGLOBIN CONC (BEAKER) (test 31.6 GM/DL 32.2-35.5 ddkj=038) RED CELL DISTRIBUTION WIDTH (BEAKER) (test 16.4 % 11.7-14.4 nxxz=780) PLATELET COUNT (BEAKER) (test vhbc=417) 135 K/CU MM 150-450 MEAN PLATELET VOLUME (BEAKER) (test ugbn=470) 12.9 fL 9.4-12.3 NUCLEATED RED BLOOD CELLS (BEAKER) (test 0 /100 WBC 0-0 kyjv=270) NEUTROPHILS RELATIVE PERCENT (BEAKER) (test 72 % lfpg=249) LYMPHOCYTES RELATIVE PERCENT (BEAKER) (test 13 % hwta=006) MONOCYTES RELATIVE PERCENT (BEAKER) (test 10 % atxk=678) EOSINOPHILS RELATIVE PERCENT (BEAKER) (test 4 % ynyb=699) BASOPHILS RELATIVE PERCENT (BEAKER) (test 0 % arhl=433) NEUTROPHILS ABSOLUTE COUNT (BEAKER) (test 6.61 K/ L 1.56-6.13 wdwv=627) LYMPHOCYTES ABSOLUTE COUNT (BEAKER) (test 1.18 K/ L 1.18-3.74 zivn=356) MONOCYTES ABSOLUTE COUNT (BEAKER) (test 0.90 K/ L 0.24-0.36 tpmx=964) EOSINOPHILS ABSOLUTE COUNT (BEAKER) (test 0.34 K/ L 0.04-0.36 jhqk=351) BASOPHILS ABSOLUTE COUNT (BEAKER) (test 0.03 K/ L 0.01-0.08 cbtg=648) IMMATURE GRANULOCYTES-RELATIVE PERCENT (BEAKER) 1 % 0-1 (test bqna=4506) RAD, CHEST, 1 VIEW, NON [id number] 05:40:00Reason for exam:->pleural effusionShould this be performed at the bedside?->YesFINAL REPORT RAD, CHEST, 1 VIEW, NON DEPT INDICATION: pleural effusion COMPARISON: Prior day's exam FINDINGS: Portable frontal view of the chest. IMPRESSION: Support Lines: Stable. Lungs and pleura: Unchanged airspace and pleural opacities. No pneumothorax.Heart and mediastinum: Stable contours. Additional findings: None. Signed: Carmel Hale Verified Date/ Time: 05/08/2018 05:40:53 Reading Location: [address] Transitional Reading Room CBC W/PLT COUNT & AUTO [id number] 04:50:00 Test Item Value Reference Range Comments WHITE BLOOD CELL COUNT (BEAKER) (test slyj=016) 9.9 K/ L 3.5-10.5 RED BLOOD CELL COUNT (BEAKER) (test izaf=569) 2.31 M/ L 3.93-5.22 HEMOGLOBIN (BEAKER) (test tcmw=726) 6.7 GM/DL 11.2-15.7 HEMATOCRIT (BEAKER) (test lpwu=499) 21.5 % 34.1-44.9 MEAN CORPUSCULAR VOLUME (BEAKER) (test bbfp=994) 93.1 fL 79.4-94.8 MEAN CORPUSCULAR HEMOGLOBIN (BEAKER) (test 29.0 pg 25.6-32.2 wkrg=601) MEAN CORPUSCULAR HEMOGLOBIN CONC (BEAKER) (test 31.2 GM/DL 32.2-35.5 qjij=103) RED CELL DISTRIBUTION WIDTH (BEAKER) (test 16.3 % 11.7-14.4 rocx=647) PLATELET COUNT (BEAKER) (test oieu=197) 128 K/CU MM 150-450 MEAN PLATELET VOLUME (BEAKER) (test ijrr=215) 12.8 fL 9.4-12.3 NUCLEATED RED BLOOD CELLS (BEAKER) (test 0 /100 WBC 0-0 ercf=755) NEUTROPHILS RELATIVE PERCENT (BEAKER) (test 74 % sjdt=811) LYMPHOCYTES RELATIVE PERCENT (BEAKER) (test 12 % ijcz=583) MONOCYTES RELATIVE PERCENT (BEAKER) (test 9 % zhzj=348) EOSINOPHILS RELATIVE PERCENT (BEAKER) (test 3 % mhbx=206) BASOPHILS RELATIVE PERCENT (BEAKER) (test 0 % oflt=849) NEUTROPHILS ABSOLUTE COUNT (BEAKER) (test 7.33 K/ L 1.56-6.13 yijz=943) LYMPHOCYTES ABSOLUTE COUNT (BEAKER) (test 1.18 K/ L 1.18-3.74 dgdm=534) MONOCYTES ABSOLUTE COUNT (BEAKER) (test 0.89 K/ L 0.24-0.36 uxuj=533) EOSINOPHILS ABSOLUTE COUNT (BEAKER) (test 0.32 K/ L 0.04-0.36 qbcl=548) BASOPHILS ABSOLUTE COUNT (BEAKER) (test 0.04 K/ L 0.01-0.08 hhvf=461) IMMATURE GRANULOCYTES-RELATIVE PERCENT (BEAKER) 1 % 0-1 (test mpqd=8274) CALCIUM, [id number] 04:49:00 Test Item Value Reference Range Comments CALCIUM IONIZED (BEAKER) (test mguy=753) 1.10 mmol/L 1.12-1.27 PH, BLOOD (BEAKER) (test hmoo=0339) 7.40 COMPREHENSIVE METABOLIC [id number] 04:41:00 Test Item Value Reference Range Comments TOTAL PROTEIN (BEAKER) 6.0 gm/dL 6.0-8.3 (test szyf=364) ALBUMIN (BEAKER) (test 2.7 g/dL 3.5-5.0 onpd=1778) ALKALINE PHOSPHATASE 195 U/L 40-150 (BEAKER) (test suoi=522) BILIRUBIN TOTAL (BEAKER) 0.4 mg/dL 0.2-1.2 (test ptyy=930) SODIUM (BEAKER) (test 135 meq/L 136-145 qtww=065) POTASSIUM (BEAKER) (test 3.8 meq/L 3.5-5.1 zigf=285) CHLORIDE (BEAKER) (test 104 meq/L 98-107 sfuw=141) CO2 (BEAKER) (test 24 meq/L 22-29 xwzn=127) BLOOD UREA NITROGEN 25 mg/dL 7-21 (BEAKER) (test wzjx=176) CREATININE (BEAKER) (test 2.64 mg/dL 0.57-1.25 kcml=748) GLUCOSE RANDOM (BEAKER) 140 mg/dL 70-105 (test ykxb=725) CALCIUM (BEAKER) (test 7.8 mg/dL 8.4-10.2 cjou=765) AST (SGOT) (BEAKER) (test 13 U/L 5-34 wdbp=187) ALT (SGPT) (BEAKER) (test 20 U/L 6-55 snho=511) EGFR (BEAKER) (test 18 mL/min/1.73 sq m ESTIMATED GFR IS NOT sklf=1744) ACCURATE CREATININE CLEARANCE IN PREDICTING GLOMERULAR FILTRATION RATE. ESTIMATED GFR IS NOT APPLICABLE FOR DIALYSIS PATIENTS. [id number] 04:38:00 Test Item Value Reference Range Comments PHOSPHORUS (BEAKER) (test lubf=245) 3.4 mg/dL 2.3-4.7 [id number] 04:38:00 Test Item Value Reference Range Comments MAGNESIUM (BEAKER) (test mwkg=550) 1.8 mg/dL 1.6-2.6 POCT-GLUCOSE [id number] 21:36:00 Test Item Value Reference Range Comments POC-GLUCOSE METER (BEAKER) 148 mg/dL 70-110 TESTED AT [address] (test xzcb=6207) [place] [id number] POCT-GLUCOSE [id number] 17:22:00 Test Item Value Reference Range Comments POC-GLUCOSE METER (BEAKER) 214 mg/dL 70-110 TESTED AT [address] (test esmj=3262) [place] [id number] POCT-GLUCOSE [id number] 11:58:00 Test Item Value Reference Range Comments POC-GLUCOSE METER (BEAKER) 96 mg/dL 70-110 TESTED AT [address] (test zrqr=2435) [place] [id number] POCT-GLUCOSE [id number] 07:07:00 Test Item Value Reference Range Comments POC-GLUCOSE METER (BEAKER) 98 mg/dL 70-110 TESTED AT [address] (test mukp=7009) [place] [id number] RAD, CHEST, 1 VIEW, NON [id number] 06:03:00Reason for exam:->pleural effusionShould this be performed at the bedside?->YesFINAL REPORT RAD, CHEST, 1 VIEW, NON DEPT INDICATION: pleural effusion COMPARISON: Prior day's exam FINDINGS: Portable frontal view of the chest. IMPRESSION: Support Lines: Stable. Lungs and pleura: Improved aeration bilateral lungs with persistent heterogeneous air space opacity at the right base and persistent left retrocardiac opacity. Small bilateral pleural effusions. No pneumothorax.Heart and mediastinum: Stable contours. Additional findings: None. Signed: Carmel Haleeport Verified Date/Time: 2018 06:03:05 Reading Location: [facility] C0[facility] Transitional Reading Room COMPREHENSIVE METABOLIC [id number] 05:10:00 Test Item Value Reference Range Comments TOTAL PROTEIN (BEAKER) 6.0 gm/dL 6.0-8.3 (test vgmx=487) ALBUMIN (BEAKER) (test 2.7 g/dL 3.5-5.0 rslb=5958) ALKALINE PHOSPHATASE 200 U/L 40-150 (BEAKER) (test mpdl=847) BILIRUBIN TOTAL (BEAKER) 0.4 mg/dL 0.2-1.2 (test earb=604) SODIUM (BEAKER) (test 136 meq/L 136-145 udim=377) POTASSIUM (BEAKER) (test 4.1 meq/L 3.5-5.1 jziv=084) CHLORIDE (BEAKER) (test 104 meq/L 98-107 bmqz=567) CO2 (BEAKER) (test 21 meq/L 22-29 lyvv=577) BLOOD UREA NITROGEN 51 mg/dL 7-21 (BEAKER) (test zsqf=844) CREATININE (BEAKER) (test 4.02 mg/dL 0.57-1.25 nooc=618) GLUCOSE RANDOM (BEAKER) 111 mg/dL 70-105 (test bujc=969) CALCIUM (BEAKER) (test 8.2 mg/dL 8.4-10.2 aycj=510) AST (SGOT) (BEAKER) (test 14 U/L 5-34 qxgy=387) ALT (SGPT) (BEAKER) (test 23 U/L 6-55 ypbu=113) EGFR (BEAKER) (test 11 mL/min/1.73 sq m ESTIMATED GFR IS NOT znta=7718) ACCURATE CREATININE CLEARANCE IN PREDICTING GLOMERULAR FILTRATION RATE. ESTIMATED GFR IS NOT APPLICABLE FOR DIALYSIS PATIENTS. [id number] 05:06:00 Test Item Value Reference Range Comments MAGNESIUM (BEAKER) (test erva=197) 1.9 mg/dL 1.6-2.6 CBC W/PLT COUNT & AUTO [id number] 05:02:00 Test Item Value Reference Range Comments WHITE BLOOD CELL COUNT (BEAKER) (test aelj=688) 12.4 K/ L 3.5-10.5 RED BLOOD CELL COUNT (BEAKER) (test knga=600) 2.72 M/ L 3.93-5.22 HEMOGLOBIN (BEAKER) (test dkia=500) 7.8 GM/DL 11.2-15.7 HEMATOCRIT (BEAKER) (test xoyy=663) 25.1 % 34.1-44.9 MEAN CORPUSCULAR VOLUME (BEAKER) (test klsw=928) 92.3 fL 79.4-94.8 MEAN CORPUSCULAR HEMOGLOBIN (BEAKER) (test 28.7 pg 25.6-32.2 eoit=111) MEAN CORPUSCULAR HEMOGLOBIN CONC (BEAKER) (test 31.1 GM/DL 32.2-35.5 akoq=298) RED CELL DISTRIBUTION WIDTH (BEAKER) (test 16.1 % 11.7-14.4 yzhi=181) PLATELET COUNT (BEAKER) (test ubgy=121) 150 K/CU MM 150-450 MEAN PLATELET VOLUME (BEAKER) (test pltj=382) 12.3 fL 9.4-12.3 NUCLEATED RED BLOOD CELLS (BEAKER) (test 0 /100 WBC 0-0 bbhc=679) NEUTROPHILS RELATIVE PERCENT (BEAKER) (test 81 % vylf=739) LYMPHOCYTES RELATIVE PERCENT (BEAKER) (test 8 % opwh=371) MONOCYTES RELATIVE PERCENT (BEAKER) (test 8 % dnjw=221) EOSINOPHILS RELATIVE PERCENT (BEAKER) (test 2 % wzpy=504) BASOPHILS RELATIVE PERCENT (BEAKER) (test 0 % tioy=611) NEUTROPHILS ABSOLUTE COUNT (BEAKER) (test 10.02 K/ L 1.56-6.13 rzct=748) LYMPHOCYTES ABSOLUTE COUNT (BEAKER) (test 0.97 K/ L 1.18-3.74 hknx=043) MONOCYTES ABSOLUTE COUNT (BEAKER) (test 0.93 K/ L 0.24-0.36 apdx=055) EOSINOPHILS ABSOLUTE COUNT (BEAKER) (test 0.28 K/ L 0.04-0.36 ydzl=803) BASOPHILS ABSOLUTE COUNT (BEAKER) (test 0.04 K/ L 0.01-0.08 imnt=206) IMMATURE GRANULOCYTES-RELATIVE PERCENT (BEAKER) 2 % 0-1 (test clwe=7523) POCT-GLUCOSE [id number] 17:48:00 Test Item Value Reference Range Comments POC-GLUCOSE METER (BEAKER) 183 mg/dL 70-110 TESTED AT [address] (test fdha=9763) [facility] [address] POCT-GLUCOSE [id number] 12:24:00 Test Item Value Reference Range Comments POC-GLUCOSE METER (BEAKER) 73 mg/dL 70-110 TESTED AT [address] (test uhay=0742) [facility] [address] POCT-GLUCOSE [id number] 08:17:00 Test Item Value Reference Range Comments POC-GLUCOSE METER (BEAKER) 123 mg/dL 70-110 TESTED AT [address] (test ofbp=5441) [facility] [address] COMPREHENSIVE METABOLIC [id number] 05:38:00 Test Item Value Reference Range Comments TOTAL PROTEIN (BEAKER) 5.7 gm/dL 6.0-8.3 (test dzdl=079) ALBUMIN (BEAKER) (test 2.6 g/dL 3.5-5.0 fepo=4660) ALKALINE PHOSPHATASE 188 U/L 40-150 (BEAKER) (test dlph=650) BILIRUBIN TOTAL (BEAKER) 0.4 mg/dL 0.2-1.2 (test udgc=936) SODIUM (BEAKER) (test 138 meq/L 136-145 hobr=108) POTASSIUM (BEAKER) (test 4.0 meq/L 3.5-5.1 tmnq=742) CHLORIDE (BEAKER) (test 106 meq/L 98-107 ompx=167) CO2 (BEAKER) (test 24 meq/L 22-29 jrko=456) BLOOD UREA NITROGEN 45 mg/dL 7-21 (BEAKER) (test tbaq=425) CREATININE (BEAKER) (test 3.17 mg/dL 0.57-1.25 hpjt=512) GLUCOSE RANDOM (BEAKER) 100 mg/dL 70-105 (test dzgb=076) CALCIUM (BEAKER) (test 8.1 mg/dL 8.4-10.2 uhmk=980) AST (SGOT) (BEAKER) (test 12 U/L 5-34 ryja=107) ALT (SGPT) (BEAKER) (test 22 U/L 6-55 trbr=199) EGFR (BEAKER) (test 15 mL/min/1.73 sq m ESTIMATED GFR IS NOT dgwv=0651) ACCURATE CREATININE CLEARANCE IN PREDICTING GLOMERULAR FILTRATION RATE. ESTIMATED GFR IS NOT APPLICABLE FOR DIALYSIS PATIENTS. [id number] 05:32:00 Test Item Value Reference Range Comments MAGNESIUM (BEAKER) (test vfbj=084) 2.0 mg/dL 1.6-2.6 CBC W/PLT COUNT & AUTO [id number] 04:30:00 Test Item Value Reference Range Comments WHITE BLOOD CELL COUNT (BEAKER) (test gbzk=745) 8.7 K/ L 3.5-10.5 RED BLOOD CELL COUNT (BEAKER) (test bbpf=651) 2.73 M/ L 3.93-5.22 HEMOGLOBIN (BEAKER) (test wqaz=274) 7.7 GM/DL 11.2-15.7 HEMATOCRIT (BEAKER) (test kozz=483) 25.2 % 34.1-44.9 MEAN CORPUSCULAR VOLUME (BEAKER) (test ajdw=729) 92.3 fL 79.4-94.8 MEAN CORPUSCULAR HEMOGLOBIN (BEAKER) (test 28.2 pg 25.6-32.2 ykup=445) MEAN CORPUSCULAR HEMOGLOBIN CONC (BEAKER) (test 30.6 GM/DL 32.2-35.5 qnng=254) RED CELL DISTRIBUTION WIDTH (BEAKER) (test 16.3 % 11.7-14.4 pzwh=789) PLATELET COUNT (BEAKER) (test xuym=383) 129 K/CU MM 150-450 MEAN PLATELET VOLUME (BEAKER) (test znpy=492) 11.8 fL 9.4-12.3 NUCLEATED RED BLOOD CELLS (BEAKER) (test 0 /100 WBC 0-0 jyoy=286) NEUTROPHILS RELATIVE PERCENT (BEAKER) (test 74 % mnxf=530) LYMPHOCYTES RELATIVE PERCENT (BEAKER) (test 13 % legd=862) MONOCYTES RELATIVE PERCENT (BEAKER) (test 10 % qzfu=923) EOSINOPHILS RELATIVE PERCENT (BEAKER) (test 2 % gjel=583) BASOPHILS RELATIVE PERCENT (BEAKER) (test 0 % ulgi=920) NEUTROPHILS ABSOLUTE COUNT (BEAKER) (test 6.41 K/ L 1.56-6.13 gtne=004) LYMPHOCYTES ABSOLUTE COUNT (BEAKER) (test 1.14 K/ L 1.18-3.74 jfwy=104) MONOCYTES ABSOLUTE COUNT (BEAKER) (test 0.83 K/ L 0.24-0.36 hyoy=075) EOSINOPHILS ABSOLUTE COUNT (BEAKER) (test 0.21 K/ L 0.04-0.36 owag=685) BASOPHILS ABSOLUTE COUNT (BEAKER) (test 0.02 K/ L 0.01-0.08 snpn=236) IMMATURE GRANULOCYTES-RELATIVE PERCENT (BEAKER) 1 % 0-1 (test cfzh=2415) POCT-GLUCOSE [id number] 20:43:00 Test Item Value Reference Range Comments POC-GLUCOSE METER (BEAKER) 191 mg/dL 70-110 TESTED AT [address] (test mrum=3020) [place] [address] POCT-GLUCOSE [id number] 18:07:00 Test Item Value Reference Range Comments POC-GLUCOSE METER (BEAKER) 270 mg/dL 70-110 TESTED AT [address] (test nxlu=9919) [place] [address] POCT-GLUCOSE [id number] 10:27:00 Test Item Value Reference Range Comments POC-GLUCOSE METER (BEAKER) 137 mg/dL 70-110 TESTED AT [address] (test stfn=3642) [place] [address] URINE [id number] 08:10:00 Test Item Value Reference Range Comments CULTURE (BEAKER) (test >100,000 col/mL Madie ogke=1160) albicans GRAM STAIN RESULT (BEAKER) 3+ WBCs (test gxjn=3957) GRAM STAIN RESULT (BEAKER) 2+ yeast (test kbds=46746) RAD, CHEST, 1 VIEW, NON [id number] 07:05:00Reason for exam:->dyspnea, pulm edemaShould this be performed at the bedside?->YesFINAL REPORT INDICATION: dyspnea, pulm edema COMPARISON:May 04 TECHNIQUE: Chest radiograph, single view, portable technique. FINDINGS / IMPRESSION: There is worsening of diffuse interstitial opacities representing marked interstitial edema. Heart shadow is prominent. Probablebilateral layering pleural effusions. Right PICC line terminates at the cavoatrial junction. Signed:Beau Lau MDReport Verified Date/Time: 05/05/2018 07:05:00 Reading Location: [facility] [id number] Ortho Consult Reading Room COMPREHENSIVE METABOLIC [id number] 05: 31:00 Test Item Value Reference Range Comments TOTAL PROTEIN (BEAKER) 5.7 gm/dL 6.0-8.3 (test qqwa=870) ALBUMIN (BEAKER) (test 2.6 g/dL 3.5-5.0 abfj=5437) ALKALINE PHOSPHATASE 213 U/L 40-150 (BEAKER) (test ykdw=301) BILIRUBIN TOTAL (BEAKER) 0.5 mg/dL 0.2-1.2 (test wmnl=991) SODIUM (BEAKER) (test 136 meq/L 136-145 cbta=748) POTASSIUM (BEAKER) (test 4.0 meq/L 3.5-5.1 zwdc=040) CHLORIDE (BEAKER) (test 103 meq/L 98-107 xjjn=451) CO2 (BEAKER) (test 24 meq/L 22-29 hegm=015) BLOOD UREA NITROGEN 63 mg/dL 7-21 (BEAKER) (test vlha=426) CREATININE (BEAKER) (test 3.48 mg/dL 0.57-1.25 lygx=496) GLUCOSE RANDOM (BEAKER) 156 mg/dL 70-105 (test ezng=120) CALCIUM (BEAKER) (test 8.3 mg/dL 8.4-10.2 inpo=434) AST (SGOT) (BEAKER) (test 21 U/L 5-34 tlpl=434) ALT (SGPT) (BEAKER) (test 30 U/L 6-55 vaqh=274) EGFR (BEAKER) (test 13 mL/min/1.73 sq m ESTIMATED GFR IS NOT ydls=7972) ACCURATE CREATININE CLEARANCE IN PREDICTING GLOMERULAR FILTRATION RATE. ESTIMATED GFR IS NOT APPLICABLE FOR DIALYSIS PATIENTS. [id number] 05:20:00 Test Item Value Reference Range Comments MAGNESIUM (BEAKER) (test lani=440) 1.5 mg/dL 1.6-2.6 [id number] 05:19:00 Test Item Value Reference Range Comments PHOSPHORUS (BEAKER) (test upot=317) 4.8 mg/dL 2.3-4.7 CBC W/PLT COUNT & AUTO [id number] 04:29:00 Test Item Value Reference Range Comments WHITE BLOOD CELL COUNT (BEAKER) (test ykvl=497) 10.7 K/ L 3.5-10.5 RED BLOOD CELL COUNT (BEAKER) (test lapk=653) 2.90 M/ L 3.93-5.22 HEMOGLOBIN (BEAKER) (test ioxi=725) 8.3 GM/DL 11.2-15.7 HEMATOCRIT (BEAKER) (test qlwb=906) 25.9 % 34.1-44.9 MEAN CORPUSCULAR VOLUME (BEAKER) (test vigd=319) 89.3 fL 79.4-94.8 MEAN CORPUSCULAR HEMOGLOBIN (BEAKER) (test 28.6 pg 25.6-32.2 qvzi=763) MEAN CORPUSCULAR HEMOGLOBIN CONC (BEAKER) (test 32.0 GM/DL 32.2-35.5 jumy=045) RED CELL DISTRIBUTION WIDTH (BEAKER) (test 16.1 % 11.7-14.4 odiw=056) PLATELET COUNT (BEAKER) (test pyop=888) 130 K/CU MM 150-450 MEAN PLATELET VOLUME (BEAKER) (test igzl=657) 12.3 fL 9.4-12.3 NUCLEATED RED BLOOD CELLS (BEAKER) (test 0 /100 WBC 0-0 ioie=216) NEUTROPHILS RELATIVE PERCENT (BEAKER) (test 86 % grdi=813) LYMPHOCYTES RELATIVE PERCENT (BEAKER) (test 6 % wlyt=718) MONOCYTES RELATIVE PERCENT (BEAKER) (test 5 % gvlp=902) EOSINOPHILS RELATIVE PERCENT (BEAKER) (test 1 % gujy=436) BASOPHILS RELATIVE PERCENT (BEAKER) (test 0 % jxrh=036) NEUTROPHILS ABSOLUTE COUNT (BEAKER) (test 9.27 K/ L 1.56-6.13 mnue=427) LYMPHOCYTES ABSOLUTE COUNT (BEAKER) (test 0.63 K/ L 1.18-3.74 quug=357) MONOCYTES ABSOLUTE COUNT (BEAKER) (test 0.58 K/ L 0.24-0.36 pqdc=424) EOSINOPHILS ABSOLUTE COUNT (BEAKER) (test 0.10 K/ L 0.04-0.36 lsnu=526) BASOPHILS ABSOLUTE COUNT (BEAKER) (test 0.03 K/ L 0.01-0.08 hgft=214) IMMATURE GRANULOCYTES-RELATIVE PERCENT (BEAKER) 1 % 0-1 (test oyty=5518) [id number] 02:30:00 Test Item Value Reference Range Comments PHOSPHORUS (BEAKER) (test rzfs=849) 4.3 mg/dL 2.3-4.7 POCT-GLUCOSE [id number] 20:26:00 Test Item Value Reference Range Comments POC-GLUCOSE METER (BEAKER) 186 mg/dL 70-110 TESTED AT [address] (test sltn=7363) [place] [address] POCT-GLUCOSE [id number] 19:16:00 Test Item Value Reference Range Comments POC-GLUCOSE METER (BEAKER) 134 mg/dL 70-110 TESTED AT [address] (test fzua=2934) [place] [address] BASIC METABOLIC [id number] 18:30:00 Test Item Value Reference Range Comments SODIUM (BEAKER) (test 137 meq/L 136-145 sxig=874) POTASSIUM (BEAKER) (test 3.9 meq/L 3.5-5.1 nnqt=153) CHLORIDE (BEAKER) (test 101 meq/L 98-107 npmi=890) CO2 (BEAKER) (test 25 meq/L 22-29 kxhv=843) BLOOD UREA NITROGEN 58 mg/dL 7-21 (BEAKER) (test ymjr=546) CREATININE (BEAKER) (test 3.02 mg/dL 0.57-1.25 jwom=677) GLUCOSE RANDOM (BEAKER) 118 mg/dL 70-105 (test dyov=902) CALCIUM (BEAKER) (test 8.8 mg/dL 8.4-10.2 buyh=700) EGFR (BEAKER) (test 15 mL/min/1.73 sq m ESTIMATED GFR IS NOT yiaa=9115) ACCURATE CREATININE CLEARANCE IN PREDICTING GLOMERULAR FILTRATION RATE. ESTIMATED GFR IS NOT APPLICABLE FOR DIALYSIS PATIENTS. [id number] 18:26:00 Test Item Value Reference Range Comments PHOSPHORUS (BEAKER) (test zxyi=627) 4.2 mg/dL 2.3-4.7 [id number] 18:26:00 Test Item Value Reference Range Comments MAGNESIUM (BEAKER) (test qilw=942) 1.5 mg/dL 1.6-2.6 CALCIUM, [id number] 18:19:00 Test Item Value Reference Range Comments CALCIUM IONIZED (BEAKER) (test ikwk=048) 1.13 mmol/L 1.12-1.27 PH, BLOOD (BEAKER) (test yvmz=0209) 7.40 HEPATITIS B SURFACE [id number] 16:05:00 Test Item Value Reference Range Comments HEPATITIS B SURFACE ANTIGEN (2) (BEAKER) (test Nonreactive Nonreactive zldj=4922) BASIC METABOLIC [id number] 14:26:00 Test Item Value Reference Range Comments SODIUM (BEAKER) (test 135 meq/L 136-145 qfhw=493) POTASSIUM (BEAKER) (test 4.0 meq/L 3.5-5.1 zibi=138) CHLORIDE (BEAKER) (test 101 meq/L 98-107 blkv=026) CO2 (BEAKER) (test 22 meq/L 22-29 wwgr=528) BLOOD UREA NITROGEN 73 mg/dL 7-21 (BEAKER) (test mdkf=548) CREATININE (BEAKER) (test 3.63 mg/dL 0.57-1.25 xkss=888) GLUCOSE RANDOM (BEAKER) 130 mg/dL 70-105 (test dpxo=494) CALCIUM (BEAKER) (test 8.1 mg/dL 8.4-10.2 kztj=619) EGFR (BEAKER) (test 13 mL/min/1.73 sq m ESTIMATED GFR IS NOT orou=3432) ACCURATE CREATININE CLEARANCE IN PREDICTING GLOMERULAR FILTRATION RATE. ESTIMATED GFR IS NOT APPLICABLE FOR DIALYSIS PATIENTS. [id number] 14:16:00 Test Item Value Reference Range Comments PHOSPHORUS (BEAKER) (test wnkt=575) 4.9 mg/dL 2.3-4.7 [id number] 14:16:00 Test Item Value Reference Range Comments MAGNESIUM (BEAKER) (test vujj=620) 1.5 mg/dL 1.6-2.6 CALCIUM, [id number] 13:49:00 Test Item Value Reference Range Comments CALCIUM IONIZED (BEAKER) (test zgoi=346) 1.04 mmol/L 1.12-1.27 PH, BLOOD (BEAKER) (test cpah=0681) 7.38 POCT-GLUCOSE [id number] 12:31:00 Test Item Value Reference Range Comments POC-GLUCOSE METER (BEAKER) 123 mg/dL 70-110 TESTED AT [facility] [address] (test thnu=1167) [facility] [address] EEG AWAKE AND [id number] 11:55:00Reason for exam:-> EncephalopathyShould this be performed at the bedside?->YesEEG REPORT: [facility] Date of EE[facility]/17Date of report: EEG start time: 08:48EEG end time: 09:10EEG #: [id number] No: [id number] ICD Code: #: G93.40 Encephalopathy- unspecifiedCPT Code: #: 38104: 01. EEG awake and drowsy;20-40 minPROCEDURE: EEG HISTORY: 68 yo female with HTN, DM, CVA w/ memory loss who presented with recurrent drop in her her blood count. Neuro was asked to see the patient for encephalopathy. MEDICATIONS AFFECTING EEG: SeroquelTECHNICAL SUMMARY: This is a digital EEG performed using disc electrodes placed according to the International 10-20 system of electrode placement. Scalp to scalp and scalp to ear montages were used. DESCRIPTION OF RECORD: In the best awake state, a Posterior Dominant Rhythm (PDR) was present at 7-8 cycles/ second. Excessive amounts of bilateral 6-7 cycles/second theta activity was present intermixed with the background rhythm. There was no focal asymmetry in the background. No epileptiform discharges were noted. No clinical or electrographic seizures were noted. SLEEP Stage I sleep was by the presence of slowing of the posterior dominant rhythm and presence of vertex waves.HYPERVENTILATION: Hyperventilation was not performed.PHOTIC STIMULATION: Photic stimulation was not performed.EKG: The heart rate was 66/ min.IMPRESSION: The EEG was abnormal due to mild diffuse slowing of the background rhythm. No seizures or epileptiform discharges were seen. COMMENT: Mild diffuse slowing is a nonspecific finding indicative of mild global cerebral dysfunction of metabolic, toxic, drug-induced or other etiology. Please correlate clinically.Clinical Fellow: Elly GeeNeurophysiologist: Dennis Ruffin POCT-GLUCOSE [id number] 08:45:00 Test Item Value Reference Range Comments POC-GLUCOSE METER (BEAKER) 186 mg/dL 70-110 TESTED AT [facility] [address] [facility] (test rwgm=0217) [facility] [address] BLOOD GAS, [id number] 07:15:00 Test Item Value Reference Range Comments PH ARTERIAL (BEAKER) (test kijo=314) 7.43 7.35-7.45 PCO2 ARTERIAL (BEAKER) (test kbgn=876) 26 mmHg 35-45 PO2 ARTERIAL (BEAKER) (test mjms=061) 89 mmHg 80-90 O2 SATURATION ARTERIAL (BEAKER) (test uoiv=966) 97.2 % 96.0-97.0 HCO3 ARTERIAL (BEAKER) (test rlbg=178) 17 mmol/L 21-29 BASE EXCESS ARTERIAL (BEAKER) (test vhqa=206) -6.7 mmol/L -2.0-3.0 PATIENT TEMPERATURE (BEAKER) (test eesa=8298) 37.0 C FIO2 (BEAKER) (test kvob=7804) 50.0 % COMPREHENSIVE METABOLIC [id number] 01:52:00 Test Item Value Reference Range Comments TOTAL PROTEIN (BEAKER) 6.9 gm/dL 6.0-8.3 (test lrdh=944) ALBUMIN (BEAKER) (test 3.1 g/dL 3.5-5.0 rbgz=2218) ALKALINE PHOSPHATASE 292 U/L 40-150 (BEAKER) (test yhcz=136) BILIRUBIN TOTAL (BEAKER) 0.5 mg/dL 0.2-1.2 (test ivfe=746) SODIUM (BEAKER) (test 131 meq/L 136-145 rwqp=189) POTASSIUM (BEAKER) (test 5.8 meq/L 3.5-5.1 plmf=629) CHLORIDE (BEAKER) (test 101 meq/L 98-107 ntal=317) CO2 (BEAKER) (test 14 meq/L 22-29 ukgu=725) BLOOD UREA NITROGEN 100 mg/dL 7-21 (BEAKER) (test ubfu=917) CREATININE (BEAKER) (test 5.43 mg/dL 0.57-1.25 dgsz=659) GLUCOSE RANDOM (BEAKER) 153 mg/dL 70-105 (test vwxg=950) CALCIUM (BEAKER) (test 7.9 mg/dL 8.4-10.2 rfzz=381) AST (SGOT) (BEAKER) (test 32 U/L 5-34 mpsi=740) ALT (SGPT) (BEAKER) (test 33 U/L 6-55 vzik=767) EGFR (BEAKER) (test 8 mL/min/1.73 sq m ESTIMATED GFR IS NOT ihdl=2966) ACCURATE CREATININE CLEARANCE IN PREDICTING GLOMERULAR FILTRATION RATE. ESTIMATED GFR IS NOT APPLICABLE FOR DIALYSIS PATIENTS. COMPREHENSIVE METABOLIC [id number] 01:52:00 Test Item Value Reference Range Comments TOTAL PROTEIN (BEAKER) 6.9 gm/dL 6.0-8.3 (test ogxo=515) ALBUMIN (BEAKER) (test 3.1 g/dL 3.5-5.0 pczj=0484) ALKALINE PHOSPHATASE 292 U/L 40-150 (BEAKER) (test vnqw=651) BILIRUBIN TOTAL (BEAKER) 0.5 mg/dL 0.2-1.2 (test kamk=839) SODIUM (BEAKER) (test 132 meq/L 136-145 ktpz=522) POTASSIUM (BEAKER) (test 5.7 meq/L 3.5-5.1 fjpv=975) CHLORIDE (BEAKER) (test 100 meq/L 98-107 fohk=360) CO2 (BEAKER) (test 16 meq/L 22-29 ywnf=115) BLOOD UREA NITROGEN 99 mg/dL 7-21 (BEAKER) (test fepa=816) CREATININE (BEAKER) (test 5.39 mg/dL 0.57-1.25 azun=848) GLUCOSE RANDOM (BEAKER) 153 mg/dL 70-105 (test aywz=705) CALCIUM (BEAKER) (test 8.0 mg/dL 8.4-10.2 bvim=513) AST (SGOT) (BEAKER) (test 32 U/L 5-34 locr=489) ALT (SGPT) (BEAKER) (test 35 U/L 6-55 jvtz=935) EGFR (BEAKER) (test 8 mL/min/1.73 sq m ESTIMATED GFR IS NOT bvuy=8826) ACCURATE CREATININE CLEARANCE IN PREDICTING GLOMERULAR FILTRATION RATE. ESTIMATED GFR IS NOT APPLICABLE FOR DIALYSIS PATIENTS. CBC W/PLT COUNT & AUTO [id number] 01:41:00 Test Item Value Reference Range Comments WHITE BLOOD CELL COUNT (BEAKER) (test ocip=164) 11.6 K/ L 3.5-10.5 RED BLOOD CELL COUNT (BEAKER) (test mger=441) 3.03 M/ L 3.93-5.22 HEMOGLOBIN (BEAKER) (test xlro=279) 8.8 GM/DL 11.2-15.7 HEMATOCRIT (BEAKER) (test eqtz=652) 27.0 % 34.1-44.9 MEAN CORPUSCULAR VOLUME (BEAKER) (test fcnl=936) 89.1 fL 79.4-94.8 MEAN CORPUSCULAR HEMOGLOBIN (BEAKER) (test 29.0 pg 25.6-32.2 acgt=819) MEAN CORPUSCULAR HEMOGLOBIN CONC (BEAKER) (test 32.6 GM/DL 32.2-35.5 lrom=350) RED CELL DISTRIBUTION WIDTH (BEAKER) (test 16.1 % 11.7-14.4 nxfr=610) PLATELET COUNT (BEAKER) (test oqju=512) 143 K/CU MM 150-450 MEAN PLATELET VOLUME (BEAKER) (test tjyj=544) 12.5 fL 9.4-12.3 NUCLEATED RED BLOOD CELLS (BEAKER) (test 0 /100 WBC 0-0 pvhi=338) NEUTROPHILS RELATIVE PERCENT (BEAKER) (test 86 % cydk=152) LYMPHOCYTES RELATIVE PERCENT (BEAKER) (test 6 % gkjp=879) MONOCYTES RELATIVE PERCENT (BEAKER) (test 4 % jtma=618) EOSINOPHILS RELATIVE PERCENT (BEAKER) (test 0 % prlc=064) BASOPHILS RELATIVE PERCENT (BEAKER) (test 0 % fgpj=467) NEUTROPHILS ABSOLUTE COUNT (BEAKER) (test 10.04 K/ L 1.56-6.13 irgm=934) LYMPHOCYTES ABSOLUTE COUNT (BEAKER) (test 0.66 K/ L 1.18-3.74 jnqu=720) MONOCYTES ABSOLUTE COUNT (BEAKER) (test 0.47 K/ L 0.24-0.36 sccd=850) EOSINOPHILS ABSOLUTE COUNT (BEAKER) (test 0.04 K/ L 0.04-0.36 excs=181) BASOPHILS ABSOLUTE COUNT (BEAKER) (test 0.03 K/ L 0.01-0.08 lrmg=600) IMMATURE GRANULOCYTES-RELATIVE PERCENT (BEAKER) 3 % 0-1 (test mwqg=6678) HEPATIC FUNCTION [id number] 01:40:00 Test Item Value Reference Range Comments TOTAL PROTEIN (BEAKER) (test iisk=949) 6.9 gm/dL 6.0-8.3 ALBUMIN (BEAKER) (test xqgm=1596) 3.1 g/dL 3.5-5.0 BILIRUBIN TOTAL (BEAKER) (test djcb=135) 0.5 mg/dL 0.2-1.2 BILIRUBIN DIRECT (BEAKER) (test prdx=919) 0.3 mg/dL 0.1-0.5 ALKALINE PHOSPHATASE (BEAKER) (test lyjo=129) 292 U/L 40-150 AST (SGOT) (BEAKER) (test wvdn=397) 32 U/L 5-34 ALT (SGPT) (BEAKER) (test magn=383) 35 U/L 6-55 CBC W/PLT COUNT & AUTO [id number] 01:40:00 Test Item Value Reference Range Comments WHITE BLOOD CELL COUNT (BEAKER) (test rotc=533) 11.4 K/ L 3.5-10.5 RED BLOOD CELL COUNT (BEAKER) (test wpra=364) 3.04 M/ L 3.93-5.22 HEMOGLOBIN (BEAKER) (test atud=535) 8.8 GM/DL 11.2-15.7 HEMATOCRIT (BEAKER) (test hroh=536) 27.0 % 34.1-44.9 MEAN CORPUSCULAR VOLUME (BEAKER) (test bzah=540) 88.8 fL 79.4-94.8 MEAN CORPUSCULAR HEMOGLOBIN (BEAKER) (test 28.9 pg 25.6-32.2 qzhd=403) MEAN CORPUSCULAR HEMOGLOBIN CONC (BEAKER) (test 32.6 GM/DL 32.2-35.5 qtbt=751) RED CELL DISTRIBUTION WIDTH (BEAKER) (test 16.2 % 11.7-14.4 ionj=313) PLATELET COUNT (BEAKER) (test mpuf=664) 145 K/CU MM 150-450 MEAN PLATELET VOLUME (BEAKER) (test gvzx=776) 13.2 fL 9.4-12.3 NUCLEATED RED BLOOD CELLS (BEAKER) (test 0 /100 WBC 0-0 ebne=856) NEUTROPHILS RELATIVE PERCENT (BEAKER) (test 86 % gwtw=844) LYMPHOCYTES RELATIVE PERCENT (BEAKER) (test 6 % cksq=673) MONOCYTES RELATIVE PERCENT (BEAKER) (test 5 % paup=331) EOSINOPHILS RELATIVE PERCENT (BEAKER) (test 0 % tssw=415) BASOPHILS RELATIVE PERCENT (BEAKER) (test 0 % ccqf=654) NEUTROPHILS ABSOLUTE COUNT (BEAKER) (test 9.87 K/ L 1.56-6.13 uoau=385) LYMPHOCYTES ABSOLUTE COUNT (BEAKER) (test 0.64 K/ L 1.18-3.74 dssk=332) MONOCYTES ABSOLUTE COUNT (BEAKER) (test 0.51 K/ L 0.24-0.36 cwwf=535) EOSINOPHILS ABSOLUTE COUNT (BEAKER) (test 0.03 K/ L 0.04-0.36 ffsv=512) BASOPHILS ABSOLUTE COUNT (BEAKER) (test 0.02 K/ L 0.01-0.08 cbob=465) IMMATURE GRANULOCYTES-RELATIVE PERCENT (BEAKER) 3 % 0-1 (test rkgb=2251) RAD, CHEST, 1 VIEW, NON [id number] 01:25:00Reason for exam:->tachypnea, hypoxiaShould this be performed at the bedside?->YesFINAL REPORT CLINICAL INDICATION: Tachypnea and hypoxia Comparison: 05/03/2018The patient is rotated to the left in the left costophrenic sulcus is excluded. The cardiomediastinal contours are grossly stable. The lung volumes remain low. Central pulmonary vascular congestion andbilateral parenchymal and pleural opacities are similar within variation of acquisition technique. There is no pneumothorax. A right PICC line remains in place. Signed: Newton Engle MDReport Verified Date/Time: 05/04/2018 01:25:17 Reading Location: [address] Reading Room POCT-LACTIC ACID, [id number] 01:17:00 Test Item Value Reference Range Comments POC-LACTIC ACID, ARTERIAL 0.4 mmol/L 0.4-1.3 TESTED AT [address] (BEAKER) (test hbxq=5417) [place] [address] POCT-BLOOD GASES, [id number] 01:17:00 Test Item Value Reference Range Comments TEMP, CELSIUS-POC (BEAKER) 37.0 (test ehzt=7698) FIO2-POC (BEAKER) (test TESTED AT [address] cphs=5423) [place] [address] PH, ARTERIAL-POC (BEAKER) 7.344 7.350-7.450 (test livp=2148) PCO2, ARTERIAL-POC (BEAKER) 33.4 mm Hg 35.0-45.0 (test xrzw=5187) PO2, ARTERIAL-POC (BEAKER) 72.0 mm Hg 80.0-90.0 (test knjr=3556) SO2, ARTERIAL-POC (BEAKER) 94.0 % 96.0-97.0 (test posh=6290) HCO3, ARTERIAL-POC (BEAKER) 18.2 meq/L 21.0-29.0 (test qcsk=8623) BASE EXCESS, ARTERIAL-POC -7.0 meq/L -2.0-3.0 (BEAKER) (test yfwj=6766) [id number] 01:17:00 Test Item Value Reference Range Comments POC-SODIUM (BEAKER) (test 133 meq/L 135-148 TESTED AT [address] tyhv=9250) [place] [address] [id number] 01:17:00 Test Item Value Reference Range Comments POC-POTASSIUM (BEAKER) (test 5.5 meq/L 3.6-5.5 TESTED AT [address] hjee=5504) [place] [address] [id number] 01:17:00 Test Item Value Reference Range Comments POC-GLUCOSE (BEAKER) (test 157 mg/dL 70-110 TESTED AT [address] wapd=2925) [place] [address] POCT-CALCIUM [id number] 01:17:00 Test Item Value Reference Range Comments POC-CALCIUM IONIZED (BEAKER) 1.07 mmol/L 1.12-1.27 TESTED AT [address] (test kvwl=0075) [place] [address] [id number] 01:17:00 Test Item Value Reference Range Comments POC-HEMATOCRIT (BEAKER) (test 27 % 36-45 TESTED AT [address] zzfq=1236) [place] [address] [id number] 01:17:00 Test Item Value Reference Range Comments POC-HEMOGLOBIN (BEAKER) 9.2 g/dL 12.0-15.0 TESTED AT [address] (test gesi=9065) [place] [address]TESTED AT [place] [address] POCT-GLUCOSE [id number] 22:01:00 Test Item Value Reference Range Comments POC-GLUCOSE METER (BEAKER) 142 mg/dL 70-110 TESTED AT [address] (test dnxw=8444) [place] [address] POCT-GLUCOSE [id number] 17:45:00 Test Item Value Reference Range Comments POC-GLUCOSE METER (BEAKER) 82 mg/dL 70-110 TESTED AT [address] (test mpky=4461) [place] [address] POCT-GLUCOSE [id number] 12:42:00 Test Item Value Reference Range Comments POC-GLUCOSE METER (BEAKER) 129 mg/dL 70-110 TESTED AT [address] (test wekt=9120) [place] [address] BASIC METABOLIC [id number] 11:59:00 Test Item Value Reference Range Comments SODIUM (BEAKER) (test 134 meq/L 136-145 ewxy=658) POTASSIUM (BEAKER) (test 4.8 meq/L 3.5-5.1 yqmx=441) CHLORIDE (BEAKER) (test 101 meq/L 98-107 kfvf=591) CO2 (BEAKER) (test 21 meq/L 22-29 ttpf=728) BLOOD UREA NITROGEN 96 mg/dL 7-21 (BEAKER) (test eirf=663) CREATININE (BEAKER) (test 4.93 mg/dL 0.57-1.25 dmyd=637) GLUCOSE RANDOM (BEAKER) 116 mg/dL 70-105 (test zlti=602) CALCIUM (BEAKER) (test 8.1 mg/dL 8.4-10.2 czul=202) EGFR (BEAKER) (test 9 mL/min/1.73 sq m ESTIMATED GFR IS NOT igrk=5790) ACCURATE CREATININE CLEARANCE IN PREDICTING GLOMERULAR FILTRATION RATE. ESTIMATED GFR IS NOT APPLICABLE FOR DIALYSIS PATIENTS. HEPATIC FUNCTION [id number] 11:59:00 Test Item Value Reference Range Comments TOTAL PROTEIN (BEAKER) (test rami=672) 6.3 gm/dL 6.0-8.3 ALBUMIN (BEAKER) (test erwu=9335) 2.8 g/dL 3.5-5.0 BILIRUBIN TOTAL (BEAKER) (test bsjd=532) 0.4 mg/dL 0.2-1.2 BILIRUBIN DIRECT (BEAKER) (test jzmh=292) 0.2 mg/dL 0.1-0.5 ALKALINE PHOSPHATASE (BEAKER) (test flze=890) 220 U/L 40-150 AST (SGOT) (BEAKER) (test fskm=470) 19 U/L 5-34 ALT (SGPT) (BEAKER) (test tkpz=549) 26 U/L 6-55 CBC W/PLT COUNT & AUTO [id number] 11:41:00 Test Item Value Reference Range Comments WHITE BLOOD CELL COUNT (BEAKER) (test mxop=155) 11.5 K/ L 3.5-10.5 RED BLOOD CELL COUNT (BEAKER) (test cumb=003) 3.08 M/ L 3.93-5.22 HEMOGLOBIN (BEAKER) (test ldjb=097) 8.9 GM/DL 11.2-15.7 HEMATOCRIT (BEAKER) (test lhqr=901) 27.1 % 34.1-44.9 MEAN CORPUSCULAR VOLUME (BEAKER) (test hjai=985) 88.0 fL 79.4-94.8 MEAN CORPUSCULAR HEMOGLOBIN (BEAKER) (test 28.9 pg 25.6-32.2 qmqi=500) MEAN CORPUSCULAR HEMOGLOBIN CONC (BEAKER) (test 32.8 GM/DL 32.2-35.5 stqe=419) RED CELL DISTRIBUTION WIDTH (BEAKER) (test 15.9 % 11.7-14.4 fjbd=157) PLATELET COUNT (BEAKER) (test kxbd=665) 151 K/CU MM 150-450 MEAN PLATELET VOLUME (BEAKER) (test wodk=372) 12.1 fL 9.4-12.3 NUCLEATED RED BLOOD CELLS (BEAKER) (test 0 /100 WBC 0-0 acmj=342) NEUTROPHILS RELATIVE PERCENT (BEAKER) (test 84 % mzur=485) LYMPHOCYTES RELATIVE PERCENT (BEAKER) (test 7 % dahh=004) MONOCYTES RELATIVE PERCENT (BEAKER) (test 5 % syhi=155) EOSINOPHILS RELATIVE PERCENT (BEAKER) (test 2 % vujy=784) BASOPHILS RELATIVE PERCENT (BEAKER) (test 0 % zdta=515) NEUTROPHILS ABSOLUTE COUNT (BEAKER) (test 9.61 K/ L 1.56-6.13 vneg=083) LYMPHOCYTES ABSOLUTE COUNT (BEAKER) (test 0.84 K/ L 1.18-3.74 secc=966) MONOCYTES ABSOLUTE COUNT (BEAKER) (test 0.59 K/ L 0.24-0.36 kxok=821) EOSINOPHILS ABSOLUTE COUNT (BEAKER) (test 0.18 K/ L 0.04-0.36 yweq=186) BASOPHILS ABSOLUTE COUNT (BEAKER) (test 0.03 K/ L 0.01-0.08 ndzz=051) IMMATURE GRANULOCYTES-RELATIVE PERCENT (BEAKER) 2 % 0-1 (test dqnu=7379) RAD, CHEST, 1 VIEW, NON [id number] 11:17:00Reason for exam:->sobShould this be performed at the bedside?->YesFINAL REPORT RAD , CHEST, 1 VIEW, NON DEPT INDICATION: sob COMPARISON: Prior day's exam FINDINGS : Portable frontal view of the chest. IMPRESSION: Support Lines: Stable right PICC. Lungs and pleura: Decreasing interstitial congestion compared to the prior day. However, left retrocardiac airspace disease has worsened. No pneumothorax.Heart and mediastinum: Stable contours. Additional findings: None. Signed: JR Aranda Robert MDReport Verified Date/Time: 05/03/2018 11:17:19 Reading Location: [facility] Reading Room POCT- GLUCOSE [id number] 08:52:00 Test Item Value Reference Range Comments POC-GLUCOSE METER (BEAKER) 136 mg/dL 70-110 TESTED AT [facility] [address] [facility] (test qjfq=1393) [facility] [address] U/S, RENAL, [id number] 08:07:00Reason for exam:->acute renal failureShould this be performed at the bedside?->YesFINAL REPORT Renal ultrasound Clinical History: Acute renal failure COMPARISON: CT from 04/28/2018, ultrasound from 02/03/2018 Discussion:Sonographic evaluation of the kidneys isperformed. Please note the examination is limited secondary to patient's inability to comply with optimal positioning. The right kidney is normal in size measuring 11.3 x 6.6 x 6.4 cm with cortical thickness of 1.6 cm. Cortical echogenicity is within normal limits. There is no evidence for solid renalmass, hydronephrosis, or shadowing calculi. The main renal artery and vein are patent. The left kidney is normal in size measuring 11.8 x 6.7 x 6.1 cm with cortical thickness of 1.4 cm. Cortical echogenicity is within normal limits. There is no evidence for solid renal mass, hydronephrosis, or shadowing calculi. The main renal artery and vein are patent. The urinary bladder is collapsed from Byrd catheter. Impression: Unremarkable renal ultrasound examination. Signed: William Heath MDReport Verified Date/Time: 05/03/2018 08: 07:49 Reading Location: [facility] B1 [id number] Ultrasound Reading Room SODIUM, RANDOM [id number] 23:21:00 Test Item Value Reference Range Comments SODIUM URINE (BEAKER) (test joqz=085) 21 meq/L Reference Range: No NormalsCREATININE, RANDOM [id number] 23:19:00 Test Item Value Reference Range Comments CREATININE URINE (BEAKER) (test zexu=222) 141.1 mg/dL Reference Range: No NormalsUREA NITROGEN, RANDOM [id number] 23:19:00 Test Item Value Reference Range Comments UREA NITROGEN URINE (BEAKER) (test gmpj=607) 231 mg/dL Reference Range: No NormalsURINALYSIS W/ [id number] 23:10:00 Test Item Value Reference Range Comments COLOR (BEAKER) (test rjai=340) Yellow CLARITY (BEAKER) (test idcf=254) Cloudy SPECIFIC GRAVITY UA (BEAKER) (test tqau=066) 1.017 1.001-1.035 PH UA (BEAKER) (test tabp=259) 5.5 5.0-8.0 PROTEIN UA (BEAKER) (test pkbs=853) 200 mg/dL Negative GLUCOSE UA (BEAKER) (test ugne=993) Negative Negative KETONES UA (BEAKER) (test uncl=753) Negative Negative BILIRUBIN UA (BEAKER) (test sjzm=223) Negative Negative BLOOD UA (BEAKER) (test friw=958) Moderate Negative NITRITE UA (BEAKER) (test ltti=736) Negative Negative LEUKOCYTE ESTERASE UA (BEAKER) (test xdmk=347) Large Negative UROBILINOGEN UA (BEAKER) (test tlnm=117) 0.2 mg/dL 0.2-1.0 RBC UA (BEAKER) (test sqow=266) 106 /HPF WBC UA (BEAKER) (test vuyv=323) > /HPF MUCUS (BEAKER) (test csee=0747) Rare SQUAMOUS EPITHELIAL (BEAKER) (test ycdt=836) 3 /HPF YEAST (BEAKER) (test rqkb=6146) Few SOURCE(BEAKER) (test vsrm=6168) Urine, Byrd POCT-GLUCOSE [id number] 20:52:00 Test Item Value Reference Range Comments POC-GLUCOSE METER (BEAKER) 71 mg/dL 70-110 TESTED AT [facility] [address] [facility] (test tqjh=7101) [facility] [address] BASIC METABOLIC [id number] 20:12:00 Test Item Value Reference Range Comments SODIUM (BEAKER) (test 134 meq/L 136-145 omyo=854) POTASSIUM (BEAKER) (test 4.5 meq/L 3.5-5.1 yobq=473) CHLORIDE (BEAKER) (test 102 meq/L 98-107 hmct=893) CO2 (BEAKER) (test 20 meq/L 22-29 rrdw=037) BLOOD UREA NITROGEN 91 mg/dL 7-21 (BEAKER) (test hwfa=497) CREATININE (BEAKER) (test 4.52 mg/dL 0.57-1.25 lxlo=723) GLUCOSE RANDOM (BEAKER) 69 mg/dL 70-105 (test bojd=229) CALCIUM (BEAKER) (test 7.9 mg/dL 8.4-10.2 nrot=891) EGFR (BEAKER) (test 10 mL/min/1.73 sq m ESTIMATED GFR IS NOT okac=8481) ACCURATE CREATININE CLEARANCE IN PREDICTING GLOMERULAR FILTRATION RATE. ESTIMATED GFR IS NOT APPLICABLE FOR DIALYSIS PATIENTS. [id number] 20:04:00 Test Item Value Reference Range Comments AMMONIA (BEAKER) (test saam=122) 28 mol/L 18-72 CBC W/PLT COUNT & AUTO [id number] 19:59:00 Test Item Value Reference Range Comments WHITE BLOOD CELL COUNT (BEAKER) (test ajta=780) 9.1 K/ L 3.5-10.5 RED BLOOD CELL COUNT (BEAKER) (test jjdb=555) 2.81 M/ L 3.93-5.22 HEMOGLOBIN (BEAKER) (test bvss=927) 8.1 GM/DL 11.2-15.7 HEMATOCRIT (BEAKER) (test vvhy=250) 25.2 % 34.1-44.9 MEAN CORPUSCULAR VOLUME (BEAKER) (test nanc=839) 89.7 fL 79.4-94.8 MEAN CORPUSCULAR HEMOGLOBIN (BEAKER) (test 28.8 pg 25.6-32.2 jihd=836) MEAN CORPUSCULAR HEMOGLOBIN CONC (BEAKER) (test 32.1 GM/DL 32.2-35.5 bxqj=891) RED CELL DISTRIBUTION WIDTH (BEAKER) (test 16.0 % 11.7-14.4 ogpm=601) PLATELET COUNT (BEAKER) (test mjct=962) 133 K/CU MM 150-450 MEAN PLATELET VOLUME (BEAKER) (test whbj=354) 12.4 fL 9.4-12.3 NUCLEATED RED BLOOD CELLS (BEAKER) (test 0 /100 WBC 0-0 khzi=081) NEUTROPHILS RELATIVE PERCENT (BEAKER) (test 82 % qsow=583) LYMPHOCYTES RELATIVE PERCENT (BEAKER) (test 8 % aoex=695) MONOCYTES RELATIVE PERCENT (BEAKER) (test 7 % lvgu=483) EOSINOPHILS RELATIVE PERCENT (BEAKER) (test 2 % ijpb=101) BASOPHILS RELATIVE PERCENT (BEAKER) (test 0 % afye=097) NEUTROPHILS ABSOLUTE COUNT (BEAKER) (test 7.50 K/ L 1.56-6.13 hefg=099) LYMPHOCYTES ABSOLUTE COUNT (BEAKER) (test 0.70 K/ L 1.18-3.74 ajjy=893) MONOCYTES ABSOLUTE COUNT (BEAKER) (test 0.59 K/ L 0.24-0.36 qvzb=511) EOSINOPHILS ABSOLUTE COUNT (BEAKER) (test 0.19 K/ L 0.04-0.36 kbgu=478) BASOPHILS ABSOLUTE COUNT (BEAKER) (test 0.01 K/ L 0.01-0.08 jfhf=252) IMMATURE GRANULOCYTES-RELATIVE PERCENT (BEAKER) 1 % 0-1 (test dvef=5476) POCT-GLUCOSE [id number] 17:36:00 Test Item Value Reference Range Comments POC-GLUCOSE METER (BEAKER) 85 mg/dL 70-110 TESTED AT [address] (test xsux=0496) [place] [address] POCT-GLUCOSE [id number] 12:16:00 Test Item Value Reference Range Comments POC-GLUCOSE METER (BEAKER) 133 mg/dL 70-110 TESTED AT [address] (test gysw=9850) [place] [address] POCT-GLUCOSE [id number] 09:17:00 Test Item Value Reference Range Comments POC-GLUCOSE METER (BEAKER) 102 mg/dL 70-110 TESTED AT [address] (test iqom=3771) [place] [address] BASIC METABOLIC [id number] 05:51:00 Test Item Value Reference Range Comments SODIUM (BEAKER) (test 132 meq/L 136-145 ldmf=731) POTASSIUM (BEAKER) (test 4.6 meq/L 3.5-5.1 rclz=412) CHLORIDE (BEAKER) (test 100 meq/L 98-107 wexo=773) CO2 (BEAKER) (test 19 meq/L 22-29 wini=309) BLOOD UREA NITROGEN 89 mg/dL 7-21 (BEAKER) (test jfoj=621) CREATININE (BEAKER) (test 4.37 mg/dL 0.57-1.25 tylu=915) GLUCOSE RANDOM (BEAKER) 63 mg/dL 70-105 (test hdec=646) CALCIUM (BEAKER) (test 7.9 mg/dL 8.4-10.2 cwxq=093) EGFR (BEAKER) (test 10 mL/min/1.73 sq m ESTIMATED GFR IS NOT mxmo=1295) ACCURATE CREATININE CLEARANCE IN PREDICTING GLOMERULAR FILTRATION RATE. ESTIMATED GFR IS NOT APPLICABLE FOR DIALYSIS PATIENTS. B-TYPE NATRIURETIC FACTOR (BNP)2018-05-02 05:32:00 Test Item Value Reference Range Comments B-TYPE NATRIURETIC PEPTIDE (BEAKER) (test 658 pg/mL 0-100 sdei=885) CBC W/PLT COUNT & AUTO [id number] 05:16:00 Test Item Value Reference Range Comments WHITE BLOOD CELL COUNT (BEAKER) (test tmca=526) 9.0 K/ L 3.5-10.5 RED BLOOD CELL COUNT (BEAKER) (test ogaa=167) 2.78 M/ L 3.93-5.22 HEMOGLOBIN (BEAKER) (test haux=104) 8.1 GM/DL 11.2-15.7 HEMATOCRIT (BEAKER) (test gmdb=409) 24.6 % 34.1-44.9 MEAN CORPUSCULAR VOLUME (BEAKER) (test gufs=677) 88.5 fL 79.4-94.8 MEAN CORPUSCULAR HEMOGLOBIN (BEAKER) (test 29.1 pg 25.6-32.2 obct=452) MEAN CORPUSCULAR HEMOGLOBIN CONC (BEAKER) (test 32.9 GM/DL 32.2-35.5 szxb=491) RED CELL DISTRIBUTION WIDTH (BEAKER) (test 15.9 % 11.7-14.4 sdad=559) PLATELET COUNT (BEAKER) (test gedt=420) 143 K/CU MM 150-450 MEAN PLATELET VOLUME (BEAKER) (test ggsw=354) 12.3 fL 9.4-12.3 NUCLEATED RED BLOOD CELLS (BEAKER) (test 0 /100 WBC 0-0 vdqn=406) NEUTROPHILS RELATIVE PERCENT (BEAKER) (test 81 % jekn=695) LYMPHOCYTES RELATIVE PERCENT (BEAKER) (test 9 % vdce=732) MONOCYTES RELATIVE PERCENT (BEAKER) (test 8 % xqfv=086) EOSINOPHILS RELATIVE PERCENT (BEAKER) (test 2 % zozv=993) BASOPHILS RELATIVE PERCENT (BEAKER) (test 0 % tsys=380) NEUTROPHILS ABSOLUTE COUNT (BEAKER) (test 7.24 K/ L 1.56-6.13 jwro=564) LYMPHOCYTES ABSOLUTE COUNT (BEAKER) (test 0.79 K/ L 1.18-3.74 fqir=520) MONOCYTES ABSOLUTE COUNT (BEAKER) (test 0.69 K/ L 0.24-0.36 giht=939) EOSINOPHILS ABSOLUTE COUNT (BEAKER) (test 0.18 K/ L 0.04-0.36 hnuq=932) BASOPHILS ABSOLUTE COUNT (BEAKER) (test 0.03 K/ L 0.01-0.08 ymqx=496) IMMATURE GRANULOCYTES-RELATIVE PERCENT (BEAKER) 1 % 0-1 (test sjfq=8338) POCT-GLUCOSE [id number] 20:35:00 Test Item Value Reference Range Comments POC-GLUCOSE METER (BEAKER) 128 mg/dL 70-110 TESTED AT [address] (test dyli=8003) [place] [address] POCT-GLUCOSE [id number] 16:35:00 Test Item Value Reference Range Comments POC-GLUCOSE METER (BEAKER) 172 mg/dL 70-110 TESTED AT [address] (test rcqw=4766) [place] [address] POCT-GLUCOSE [id number] 14:05:00 Test Item Value Reference Range Comments POC-GLUCOSE METER (BEAKER) 200 mg/dL 70-110 TESTED AT [address] (test bijr=4510) [place] [address] POCT-GLUCOSE [id number] 08:13:00 Test Item Value Reference Range Comments POC-GLUCOSE METER (BEAKER) 86 mg/dL 70-110 TESTED AT [address] (test joku=1745) [facility] [address] BASIC METABOLIC [id number] 07:14:00 Test Item Value Reference Range Comments SODIUM (BEAKER) (test 133 meq/L 136-145 kebh=390) POTASSIUM (BEAKER) (test 4.4 meq/L 3.5-5.1 tpou=696) CHLORIDE (BEAKER) (test 101 meq/L 98-107 ockf=521) CO2 (BEAKER) (test 20 meq/L 22-29 uqkj=919) BLOOD UREA NITROGEN 83 mg/dL 7-21 (BEAKER) (test kcct=393) CREATININE (BEAKER) (test 3.85 mg/dL 0.57-1.25 ctvj=503) GLUCOSE RANDOM (BEAKER) 74 mg/dL 70-105 (test pcvn=174) CALCIUM (BEAKER) (test 8.1 mg/dL 8.4-10.2 pktw=050) EGFR (BEAKER) (test 12 mL/min/1.73 sq m ESTIMATED GFR IS NOT fpzw=6114) ACCURATE CREATININE CLEARANCE IN PREDICTING GLOMERULAR FILTRATION RATE. ESTIMATED GFR IS NOT APPLICABLE FOR DIALYSIS PATIENTS. IRON, TIBC, % SAT. (WITHOUT FERRITIN)2018-05-01 06:53:00 Test Item Value Reference Range Comments IRON (BEAKER) (test svbb=684) 19.0 ug/dL 40.0-160.0 TOTAL IRON BINDING CAPACITY (BEAKER) (test 125 ug/dL 250-450 epny=758) IRON % SATURATION (2) (BEAKER) (test wwus=0908) 15 % 20-55 CBC W/PLT COUNT & AUTO [id number] 06:30:00 Test Item Value Reference Range Comments WHITE BLOOD CELL COUNT (BEAKER) (test nmxp=125) 8.2 K/ L 3.5-10.5 RED BLOOD CELL COUNT (BEAKER) (test mzgn=810) 2.72 M/ L 3.93-5.22 HEMOGLOBIN (BEAKER) (test ounm=660) 8.0 GM/DL 11.2-15.7 HEMATOCRIT (BEAKER) (test ucad=073) 24.3 % 34.1-44.9 MEAN CORPUSCULAR VOLUME (BEAKER) (test nkgm=218) 89.3 fL 79.4-94.8 MEAN CORPUSCULAR HEMOGLOBIN (BEAKER) (test 29.4 pg 25.6-32.2 dcvn=668) MEAN CORPUSCULAR HEMOGLOBIN CONC (BEAKER) (test 32.9 GM/DL 32.2-35.5 kzib=851) RED CELL DISTRIBUTION WIDTH (BEAKER) (test 16.3 % 11.7-14.4 nyoh=097) PLATELET COUNT (BEAKER) (test roho=238) 147 K/CU MM 150-450 MEAN PLATELET VOLUME (BEAKER) (test luhz=381) 12.7 fL 9.4-12.3 NUCLEATED RED BLOOD CELLS (BEAKER) (test 0 /100 WBC 0-0 fbsq=877) NEUTROPHILS RELATIVE PERCENT (BEAKER) (test 76 % tgha=344) LYMPHOCYTES RELATIVE PERCENT (BEAKER) (test 12 % mvlp=588) MONOCYTES RELATIVE PERCENT (BEAKER) (test 9 % tuzg=661) EOSINOPHILS RELATIVE PERCENT (BEAKER) (test 3 % nysl=541) BASOPHILS RELATIVE PERCENT (BEAKER) (test 0 % zljy=359) NEUTROPHILS ABSOLUTE COUNT (BEAKER) (test 6.20 K/ L 1.56-6.13 yeah=774) LYMPHOCYTES ABSOLUTE COUNT (BEAKER) (test 0.96 K/ L 1.18-3.74 yqqk=210) MONOCYTES ABSOLUTE COUNT (BEAKER) (test 0.71 K/ L 0.24-0.36 smca=420) EOSINOPHILS ABSOLUTE COUNT (BEAKER) (test 0.21 K/ L 0.04-0.36 fwzu=943) BASOPHILS ABSOLUTE COUNT (BEAKER) (test 0.02 K/ L 0.01-0.08 uesn=358) IMMATURE GRANULOCYTES-RELATIVE PERCENT (BEAKER) 1 % 0-1 (test zdji=0888) POCT-GLUCOSE [id number] 05:42:00 Test Item Value Reference Range Comments POC-GLUCOSE METER (BEAKER) 87 mg/dL 70-110 TESTED AT [address] (test tnow=8938) [facility] [address] POCT-GLUCOSE [id number] 20:48:00 Test Item Value Reference Range Comments POC-GLUCOSE METER (BEAKER) 65 mg/dL 70-110 TESTED AT [address] (test wlgf=6463) [facility] [address] SODIUM, RANDOM [id number] 19:53:00 Test Item Value Reference Range Comments SODIUM URINE (BEAKER) (test svdc=553) < meq/L Reference Range: No NormalsCREATININE, RANDOM [id number] 19:50:00 Test Item Value Reference Range Comments CREATININE URINE (BEAKER) (test ulhw=164) 138.1 mg/dL Reference Range: No NormalsUREA NITROGEN, RANDOM [id number] 19:50:00 Test Item Value Reference Range Comments UREA NITROGEN URINE (BEAKER) (test jrfl=724) 305 mg/dL Reference Range: No NormalsPOCT-GLUCOSE [id number] 16:47:00 Test Item Value Reference Range Comments POC-GLUCOSE METER (BEAKER) 142 mg/dL 70-110 TESTED AT [facility] [address] [facility] (test wnki=8528) [facility] [address] EOSINOPHIL SMEAR, [id number] 16:01:00 Test Item Value Reference Range Comments EOSINOPHIL SMEAR, URINE (BEAKER) (test No EOS seen No EOS seen btki=8571) URINALYSIS W/ [id number] 15:27:00 Test Item Value Reference Range Comments COLOR (BEAKER) (test bonm=672) Yellow CLARITY (BEAKER) (test zvkm=382) Cloudy SPECIFIC GRAVITY UA (BEAKER) (test ndal=038) 1.015 1.001-1.035 PH UA (BEAKER) (test bmol=293) 5.0 5.0-8.0 PROTEIN UA (BEAKER) (test vedr=944) 100 mg/dL Negative GLUCOSE UA (BEAKER) (test pdgu=568) 70 mg/dL Negative KETONES UA (BEAKER) (test mixi=199) Negative Negative BILIRUBIN UA (BEAKER) (test alhh=396) Negative Negative BLOOD UA (BEAKER) (test rpct=948) Negative Negative NITRITE UA (BEAKER) (test yocw=374) Negative Negative LEUKOCYTE ESTERASE UA (BEAKER) (test xgys=245) Small Negative UROBILINOGEN UA (BEAKER) (test dmvk=727) 0.2 mg/dL 0.2-1.0 RBC UA (BEAKER) (test mbnx=852) 5 /HPF WBC UA (BEAKER) (test kmek=114) 29 /HPF SQUAMOUS EPITHELIAL (BEAKER) (test ttca=843) 5 /HPF HYALINE CASTS (BEAKER) (test umjx=354) 4 /LPF CASTS (BEAKER) (test ufte=9394) 7 /LPF CRYSTALS, URINE (BEAKER) (test pzrm=4700) Moderate YEAST (BEAKER) (test zdna=0826) Rare SOURCE(BEAKER) (test nvpk=3384) POCT-GLUCOSE [id number] 13:24:00 Test Item Value Reference Range Comments POC-GLUCOSE METER (BEAKER) 198 mg/dL 70-110 TESTED AT [facility] [address] [facility] (test vzgc=5768) [facility] [address] POCT-GLUCOSE [id number] 07:49:00 Test Item Value Reference Range Comments POC-GLUCOSE METER (BEAKER) 109 mg/dL 70-110 TESTED AT [address] (test bbpu=6973) [facility] [address] BASIC METABOLIC [id number] 04:29:00 Test Item Value Reference Range Comments SODIUM (BEAKER) (test 133 meq/L 136-145 cbbg=662) POTASSIUM (BEAKER) (test 4.2 meq/L 3.5-5.1 eyqq=061) CHLORIDE (BEAKER) (test 101 meq/L 98-107 erqu=497) CO2 (BEAKER) (test 21 meq/L 22-29 fyzv=363) BLOOD UREA NITROGEN 76 mg/dL 7-21 (BEAKER) (test bjir=253) CREATININE (BEAKER) (test 3.01 mg/dL 0.57-1.25 gejk=574) GLUCOSE RANDOM (BEAKER) 111 mg/dL 70-105 (test bftc=673) CALCIUM (BEAKER) (test 8.4 mg/dL 8.4-10.2 vpbj=381) EGFR (BEAKER) (test 16 mL/min/1.73 sq m ESTIMATED GFR IS NOT lpjb=0365) ACCURATE CREATININE CLEARANCE IN PREDICTING GLOMERULAR FILTRATION RATE. ESTIMATED GFR IS NOT APPLICABLE FOR DIALYSIS PATIENTS. CBC W/PLT COUNT & AUTO [id number] 04:06:00 Test Item Value Reference Range Comments WHITE BLOOD CELL COUNT (BEAKER) (test jyjd=961) 8.9 K/ L 3.5-10.5 RED BLOOD CELL COUNT (BEAKER) (test wcee=762) 2.75 M/ L 3.93-5.22 HEMOGLOBIN (BEAKER) (test xjen=497) 8.1 GM/DL 11.2-15.7 HEMATOCRIT (BEAKER) (test jkxh=344) 24.5 % 34.1-44.9 MEAN CORPUSCULAR VOLUME (BEAKER) (test ydgr=082) 89.1 fL 79.4-94.8 MEAN CORPUSCULAR HEMOGLOBIN (BEAKER) (test 29.5 pg 25.6-32.2 phpn=132) MEAN CORPUSCULAR HEMOGLOBIN CONC (BEAKER) (test 33.1 GM/DL 32.2-35.5 hssr=310) RED CELL DISTRIBUTION WIDTH (BEAKER) (test 16.3 % 11.7-14.4 duqk=479) PLATELET COUNT (BEAKER) (test vrrq=942) 151 K/CU MM 150-450 MEAN PLATELET VOLUME (BEAKER) (test kgzb=012) 11.9 fL 9.4-12.3 NUCLEATED RED BLOOD CELLS (BEAKER) (test 0 /100 WBC 0-0 tgph=339) NEUTROPHILS RELATIVE PERCENT (BEAKER) (test 79 % yhsp=858) LYMPHOCYTES RELATIVE PERCENT (BEAKER) (test 9 % yflp=515) MONOCYTES RELATIVE PERCENT (BEAKER) (test 8 % tmdq=660) EOSINOPHILS RELATIVE PERCENT (BEAKER) (test 2 % wfgk=340) BASOPHILS RELATIVE PERCENT (BEAKER) (test 0 % jjyp=053) NEUTROPHILS ABSOLUTE COUNT (BEAKER) (test 7.03 K/ L 1.56-6.13 mqds=085) LYMPHOCYTES ABSOLUTE COUNT (BEAKER) (test 0.83 K/ L 1.18-3.74 dowd=912) MONOCYTES ABSOLUTE COUNT (BEAKER) (test 0.73 K/ L 0.24-0.36 xmge=822) EOSINOPHILS ABSOLUTE COUNT (BEAKER) (test 0.21 K/ L 0.04-0.36 pvgs=431) BASOPHILS ABSOLUTE COUNT (BEAKER) (test 0.04 K/ L 0.01-0.08 dygi=134) IMMATURE GRANULOCYTES-RELATIVE PERCENT (BEAKER) 1 % 0-1 (test yzdr=6435) POCT-GLUCOSE [id number] 21:35:00 Test Item Value Reference Range Comments POC-GLUCOSE METER (BEAKER) 136 mg/dL 70-110 TESTED AT [facility] [address] [facility] (test dqgy=5340) [facility] [address] RAD, CHEST, 1 VIEW, NON [id number] 18:00:00Reason for exam:->SOBShould this be performed at the bedside?->YesFINAL REPORT History: Shortness of breath. Comparison: 02/05/2018 Findings: Asingle view of the chest is submitted. The examination is limited by low lung volumes. The cardiac silhouette is partially obscured by low lung volumes and elevated hemidiaphragms but appears grossly stable when compared to previous and at the upper limits of normal for size. There is central pulmonary vascular congestion. Small bilateral pleural effusions are present. Perihilar interstitial and patchy bibasilar opacities suggest a combination of pulmonary edema, atelectasis and effusions. Pneumonitis should be excluded clinically. There is no pneumothorax or acute bony abnormality. A right PICCline tip overlies the SVC. Signed: Newton Engle MDReport Verified Date/Time: 2017 18:00:36 Reading Location: [address] Reading Room POCT- GLUCOSE [id number] 17:00:00 Test Item Value Reference Range Comments POC-GLUCOSE METER (BEAKER) 229 mg/dL 70-110 TESTED AT [address] (test oqji=9961) [place] [address] POCT-GLUCOSE [id number] 11:35:00 Test Item Value Reference Range Comments POC-GLUCOSE METER (BEAKER) 180 mg/dL 70-110 TESTED AT [address] (test jkdh=4692) [place] [address] POCT-GLUCOSE [id number] 08:35:00 Test Item Value Reference Range Comments POC-GLUCOSE METER (BEAKER) 210 mg/dL 70-110 TESTED AT [address] (test tomu=2502) [place] [address] BASIC METABOLIC [id number] 06:02:00 Test Item Value Reference Range Comments SODIUM (BEAKER) (test 133 meq/L 136-145 dkfk=127) POTASSIUM (BEAKER) (test 4.1 meq/L 3.5-5.1 kuay=062) CHLORIDE (BEAKER) (test 102 meq/L 98-107 vfzd=840) CO2 (BEAKER) (test 21 meq/L 22-29 vvqw=904) BLOOD UREA NITROGEN 67 mg/dL 7-21 (BEAKER) (test xguu=395) CREATININE (BEAKER) (test 2.40 mg/dL 0.57-1.25 kpel=714) GLUCOSE RANDOM (BEAKER) 212 mg/dL 70-105 (test mwoq=579) CALCIUM (BEAKER) (test 8.1 mg/dL 8.4-10.2 ehdy=646) EGFR (BEAKER) (test 20 mL/min/1.73 sq m ESTIMATED GFR IS NOT aaxi=7683) ACCURATE CREATININE CLEARANCE IN PREDICTING GLOMERULAR FILTRATION RATE. ESTIMATED GFR IS NOT APPLICABLE FOR DIALYSIS PATIENTS. POCT-GLUCOSE [id number] 22:11:00 Test Item Value Reference Range Comments POC-GLUCOSE METER (BEAKER) 178 mg/dL 70-110 TESTED AT [address] (test aoap=4330) [place] [id number] POCT-GLUCOSE [id number] 17:00:00 Test Item Value Reference Range Comments POC-GLUCOSE METER (BEAKER) 121 mg/dL 70-110 TESTED AT [address] (test kdwz=0241) [facility] [address] POCT-GLUCOSE [id number] 12:17:00 Test Item Value Reference Range Comments POC-GLUCOSE METER (BEAKER) 230 mg/dL 70-110 TESTED AT [address] (test elgz=1036) [place] [address] POCT-GLUCOSE [id number] 08:00:00 Test Item Value Reference Range Comments POC-GLUCOSE METER (BEAKER) 160 mg/dL 70-110 TESTED AT [address] (test ukhg=2979) [place] [address] BASIC METABOLIC [id number] 05:41:00 Test Item Value Reference Range Comments SODIUM (BEAKER) (test 134 meq/L 136-145 ifud=029) POTASSIUM (BEAKER) (test 4.1 meq/L 3.5-5.1 vavz=904) CHLORIDE (BEAKER) (test 105 meq/L 98-107 nyes=530) CO2 (BEAKER) (test 19 meq/L 22-29 kdfe=739) BLOOD UREA NITROGEN 53 mg/dL 7-21 (BEAKER) (test btyq=218) CREATININE (BEAKER) (test 1.88 mg/dL 0.57-1.25 fpca=944) GLUCOSE RANDOM (BEAKER) 137 mg/dL 70-105 (test lsvs=284) CALCIUM (BEAKER) (test 8.7 mg/dL 8.4-10.2 nkdw=330) EGFR (BEAKER) (test 27 mL/min/1.73 sq m ESTIMATED GFR IS NOT mjwr=4182) ACCURATE CREATININE CLEARANCE IN PREDICTING GLOMERULAR FILTRATION RATE. ESTIMATED GFR IS NOT APPLICABLE FOR DIALYSIS PATIENTS. CBC W/PLT COUNT & AUTO [id number] 05:03:00 Test Item Value Reference Range Comments WHITE BLOOD CELL COUNT (BEAKER) (test zblm=793) 10.5 K/ L 3.5-10.5 RED BLOOD CELL COUNT (BEAKER) (test vbgh=405) 2.99 M/ L 3.93-5.22 HEMOGLOBIN (BEAKER) (test qtxn=710) 8.7 GM/DL 11.2-15.7 HEMATOCRIT (BEAKER) (test dfhh=587) 26.8 % 34.1-44.9 MEAN CORPUSCULAR VOLUME (BEAKER) (test guvh=114) 89.6 fL 79.4-94.8 MEAN CORPUSCULAR HEMOGLOBIN (BEAKER) (test 29.1 pg 25.6-32.2 gcwg=435) MEAN CORPUSCULAR HEMOGLOBIN CONC (BEAKER) (test 32.5 GM/DL 32.2-35.5 tlvl=046) RED CELL DISTRIBUTION WIDTH (BEAKER) (test 16.5 % 11.7-14.4 qikx=395) PLATELET COUNT (BEAKER) (test odak=091) 185 K/CU MM 150-450 MEAN PLATELET VOLUME (BEAKER) (test hick=959) 12.2 fL 9.4-12.3 NUCLEATED RED BLOOD CELLS (BEAKER) (test 0 /100 WBC 0-0 vlad=297) NEUTROPHILS RELATIVE PERCENT (BEAKER) (test 80 % rrzr=400) LYMPHOCYTES RELATIVE PERCENT (BEAKER) (test 9 % very=198) MONOCYTES RELATIVE PERCENT (BEAKER) (test 10 % mejc=814) EOSINOPHILS RELATIVE PERCENT (BEAKER) (test 1 % zvol=847) BASOPHILS RELATIVE PERCENT (BEAKER) (test 0 % qvtw=280) NEUTROPHILS ABSOLUTE COUNT (BEAKER) (test 8.39 K/ L 1.56-6.13 bakq=652) LYMPHOCYTES ABSOLUTE COUNT (BEAKER) (test 0.94 K/ L 1.18-3.74 nmup=919) MONOCYTES ABSOLUTE COUNT (BEAKER) (test 0.99 K/ L 0.24-0.36 psbz=936) EOSINOPHILS ABSOLUTE COUNT (BEAKER) (test 0.05 K/ L 0.04-0.36 vxmm=683) BASOPHILS ABSOLUTE COUNT (BEAKER) (test 0.03 K/ L 0.01-0.08 iqhj=463) IMMATURE GRANULOCYTES-RELATIVE PERCENT (BEAKER) 1 % 0-1 (test qgli=7651) CT, [id number] 03:51:00Reason for exam:->recurrent no GI loss anemia with fatigue: concern for retroperitoneal hematomaWhat is the patient's sedation requirement?->No SedationFINAL REPORT CLINICAL HISTORY: Anemia with fatigue. Concern for retroperitoneal hematoma FINDINGS: Multiple axial images of the abdomen and pelvis were performed without intravenous contrast. Oral contrast was not given. The examination is limited by intermittent motion artifact. This exam was performed according to our departmental dose-optimization program, which includes automated exposure control, adjustment of the mA and/or kV according to patient size and/or use of the iterative reconstruction technique. Comparison:None. Lower chest: Moderate bilateral pleural effusions and adjacent atelectasis versus pneumonitis. No pneumothorax. Atherosclerotic coronary artery calcification. Liver: Subtle nodular contour of the hepatic parenchyma with prominence of the left hepaticlobe, suggesting underlying hepatic disease, possibly cirrhosis. Gallbladder and biliary tree: Previous cholecystectomy Spleen: No significant findings. Adrenal Glands: No significant findings. Kidneysand ureters: No significant findings. Stomach and Duodenum: No significant findings. Pancreas: Fattyreplacement of the pancreas Bowel: No bowel obstruction or pneumatosis intestinalis. Appendix: Normal. Bladder: No significant findings. Major vascular structures: Atherosclerotic calcifications Reproductive organs: Previous hysterectomy Other: Trace simple ascites. No retroperitoneal or intra- abdominal hematoma. Skeleton: No acute bony abnormality. IMPRESSION: No CT abnormality to explain thepatient's anemia. Specifically, there is no retroperitoneal or intra-abdominal hematoma. Moderate bilateral pleural effusions and adjacent atelectasis versus pneumonitis. Subtle hepatic contour nodularity and prominence of the left hepatic lobe suggesting hepatic parenchymal disease, possibly cirrhosis. Please correlate. Previous cholecystectomy and hysterectomy. Trace density ascites, nonspecific. Signed: Newton Engle MDReport Verified Date/Time: 04/28/2018 03:51:18 Reading Location : [address] Reading Room POCT-GLUCOSE [id number] 20:43:00 Test Item Value Reference Range Comments POC-GLUCOSE METER (BEAKER) 92 mg/dL 70-110 TESTED AT [address] (test pfpd=3594) [place] [id number] POCT-GLUCOSE [id number] 17:35:00 Test Item Value Reference Range Comments POC-GLUCOSE METER (BEAKER) 195 mg/dL 70-110 TESTED AT [address] (test wrkq=9994) [place] [address] PROTEIN ELECTROPHORESIS, [id number] 12:33:00 Test Item Value Reference Range Comments ALBUMIN FRACTION (BEAKER) 2.7 g/dL 3.5-5.5 (test qfgv=068) ALPHA 1 FRACTION (BEAKER) 0.4 g/dL 0.2-0.4 (test fstl=996) ALPHA 2 FRACTION (BEAKER) 1.1 g/dL 0.5-0.9 (test ggwq=331) BETA FRACTION (BEAKER) (test 1.0 g/dL 0.6-1.1 tubd=172) GAMMA GLOBULIN FRACTION 1.2 g/dL 0.7-1.7 (BEAKER) (test qrfh=487) INTERPRETATION-119 (BEAKER) Pattern suggestive of renal (test mwjq=0085) protein loss coupled with acute and chronic inflammation. No monoclonal bands detected. VOTW-WLSUEOWOOQT-073 (BEAKER) Gina Meredith MD (test ykcu=7409) (electronic signature) PROTEIN TOTAL SERUM, SPEP 6.4 gm/dL 6.0-8.3 (BEAKER) (test znxb=7894) POCT-GLUCOSE [id number] 11:28:00 Test Item Value Reference Range Comments POC-GLUCOSE METER (BEAKER) 224 mg/dL 70-110 TESTED AT [address] (test asih=3165) [place] [id number] POCT-GLUCOSE [id number] 09:01:00 Test Item Value Reference Range Comments POC-GLUCOSE METER (BEAKER) 203 mg/dL 70-110 TESTED AT [facility] [address] (test sbjt=7698) [facility] [address] BASIC METABOLIC [id number] 07:26:00 Test Item Value Reference Range Comments SODIUM (BEAKER) (test 132 meq/L 136-145 vkwz=852) POTASSIUM (BEAKER) (test 3.9 meq/L 3.5-5.1 qugh=488) CHLORIDE (BEAKER) (test 103 meq/L 98-107 zqtf=423) CO2 (BEAKER) (test 19 meq/L 22-29 hrpv=569) BLOOD UREA NITROGEN 49 mg/dL 7-21 (BEAKER) (test anmv=081) CREATININE (BEAKER) (test 1.86 mg/dL 0.57-1.25 lcgg=720) GLUCOSE RANDOM (BEAKER) 204 mg/dL 70-105 (test rgtz=928) CALCIUM (BEAKER) (test 8.4 mg/dL 8.4-10.2 umqv=822) EGFR (BEAKER) (test 27 mL/min/1.73 sq m ESTIMATED GFR IS NOT cngi=0124) ACCURATE CREATININE CLEARANCE IN PREDICTING GLOMERULAR FILTRATION RATE. ESTIMATED GFR IS NOT APPLICABLE FOR DIALYSIS PATIENTS. CBC W/PLT COUNT & AUTO [id number] 07:11:00 Test Item Value Reference Range Comments WHITE BLOOD CELL COUNT (BEAKER) (test ahxr=866) 9.3 K/ L 3.5-10.5 RED BLOOD CELL COUNT (BEAKER) (test pvkf=957) 2.86 M/ L 3.93-5.22 HEMOGLOBIN (BEAKER) (test kyzz=443) 8.3 GM/DL 11.2-15.7 HEMATOCRIT (BEAKER) (test zvgu=536) 25.8 % 34.1-44.9 MEAN CORPUSCULAR VOLUME (BEAKER) (test ispa=506) 90.2 fL 79.4-94.8 MEAN CORPUSCULAR HEMOGLOBIN (BEAKER) (test 29.0 pg 25.6-32.2 ktcl=239) MEAN CORPUSCULAR HEMOGLOBIN CONC (BEAKER) (test 32.2 GM/DL 32.2-35.5 ihki=652) RED CELL DISTRIBUTION WIDTH (BEAKER) (test 16.8 % 11.7-14.4 vqku=227) PLATELET COUNT (BEAKER) (test pssc=220) 191 K/CU MM 150-450 MEAN PLATELET VOLUME (BEAKER) (test ocyp=672) 11.8 fL 9.4-12.3 NUCLEATED RED BLOOD CELLS (BEAKER) (test 0 /100 WBC 0-0 rabg=401) NEUTROPHILS RELATIVE PERCENT (BEAKER) (test 77 % tooo=045) LYMPHOCYTES RELATIVE PERCENT (BEAKER) (test 11 % pyqa=293) MONOCYTES RELATIVE PERCENT (BEAKER) (test 10 % vdex=181) EOSINOPHILS RELATIVE PERCENT (BEAKER) (test 0 % bsbn=202) BASOPHILS RELATIVE PERCENT (BEAKER) (test 0 % zlbk=523) NEUTROPHILS ABSOLUTE COUNT (BEAKER) (test 7.20 K/ L 1.56-6.13 crya=797) LYMPHOCYTES ABSOLUTE COUNT (BEAKER) (test 1.05 K/ L 1.18-3.74 uwlz=817) MONOCYTES ABSOLUTE COUNT (BEAKER) (test 0.92 K/ L 0.24-0.36 bxuj=232) EOSINOPHILS ABSOLUTE COUNT (BEAKER) (test 0.03 K/ L 0.04-0.36 oyam=990) BASOPHILS ABSOLUTE COUNT (BEAKER) (test 0.03 K/ L 0.01-0.08 txmk=905) IMMATURE GRANULOCYTES-RELATIVE PERCENT (BEAKER) 1 % 0-1 (test kutv=6932) POCT-GLUCOSE [id number] 20:45:00 Test Item Value Reference Range Comments POC-GLUCOSE METER (BEAKER) 72 mg/dL 70-110 TESTED AT [address] (test bljn=0665) [place] [id number] POCT-GLUCOSE [id number] 18:17:00 Test Item Value Reference Range Comments POC-GLUCOSE METER (BEAKER) 140 mg/dL 70-110 TESTED AT [address] (test zzss=2711) [place] [address] POCT-GLUCOSE [id number] 14:42:00 Test Item Value Reference Range Comments POC-GLUCOSE METER (BEAKER) 104 mg/dL 70-110 TESTED AT [address] (test ojlt=5114) [place] [address] POCT-GLUCOSE [id number] 10:54:00 Test Item Value Reference Range Comments POC-GLUCOSE METER (BEAKER) 93 mg/dL 70-110 TESTED AT [place] [address] [facility] (test bgpr=1583) [facility] [address] POCT-GLUCOSE [id number] 08:06:00 Test Item Value Reference Range Comments POC-GLUCOSE METER (BEAKER) 136 mg/dL 70-110 TESTED AT [facility] [address] [facility] (test qtpd=9900) [facility] [address] BASIC METABOLIC [id number] 07:34:00 Test Item Value Reference Range Comments SODIUM (BEAKER) (test 133 meq/L 136-145 qtwe=785) POTASSIUM (BEAKER) (test 3.8 meq/L 3.5-5.1 txch=054) CHLORIDE (BEAKER) (test 105 meq/L 98-107 omkk=737) CO2 (BEAKER) (test 20 meq/L 22-29 tmys=975) BLOOD UREA NITROGEN 47 mg/dL 7-21 (BEAKER) (test hlvc=410) CREATININE (BEAKER) (test 1.64 mg/dL 0.57-1.25 znru=157) GLUCOSE RANDOM (BEAKER) 111 mg/dL 70-105 (test qqau=265) CALCIUM (BEAKER) (test 8.9 mg/dL 8.4-10.2 bcdk=588) EGFR (BEAKER) (test 31 mL/min/1.73 sq m ESTIMATED GFR IS NOT dpqd=8611) ACCURATE CREATININE CLEARANCE IN PREDICTING GLOMERULAR FILTRATION RATE. ESTIMATED GFR IS NOT APPLICABLE FOR DIALYSIS PATIENTS. CBC W/PLT COUNT & AUTO [id number] 06:19:00 Test Item Value Reference Range Comments WHITE BLOOD CELL COUNT (BEAKER) (test ftbk=006) 7.7 K/ L 3.5-10.5 RED BLOOD CELL COUNT (BEAKER) (test pvga=436) 2.93 M/ L 3.93-5.22 HEMOGLOBIN (BEAKER) (test rslu=387) 8.8 GM/DL 11.2-15.7 HEMATOCRIT (BEAKER) (test ecgg=956) 26.4 % 34.1-44.9 MEAN CORPUSCULAR VOLUME (BEAKER) (test uecs=415) 90.1 fL 79.4-94.8 MEAN CORPUSCULAR HEMOGLOBIN (BEAKER) (test 30.0 pg 25.6-32.2 yejc=900) MEAN CORPUSCULAR HEMOGLOBIN CONC (BEAKER) (test 33.3 GM/DL 32.2-35.5 vpjr=122) RED CELL DISTRIBUTION WIDTH (BEAKER) (test 16.9 % 11.7-14.4 jmgr=099) PLATELET COUNT (BEAKER) (test mmsn=446) 197 K/CU MM 150-450 MEAN PLATELET VOLUME (BEAKER) (test mpmi=253) 11.8 fL 9.4-12.3 NUCLEATED RED BLOOD CELLS (BEAKER) (test 0 /100 WBC 0-0 cvfx=438) NEUTROPHILS RELATIVE PERCENT (BEAKER) (test 73 % cqgd=612) LYMPHOCYTES RELATIVE PERCENT (BEAKER) (test 13 % xxuw=489) MONOCYTES RELATIVE PERCENT (BEAKER) (test 12 % liho=262) EOSINOPHILS RELATIVE PERCENT (BEAKER) (test 1 % giuj=714) BASOPHILS RELATIVE PERCENT (BEAKER) (test 0 % kqck=289) NEUTROPHILS ABSOLUTE COUNT (BEAKER) (test 5.64 K/ L 1.56-6.13 fafw=955) LYMPHOCYTES ABSOLUTE COUNT (BEAKER) (test 0.99 K/ L 1.18-3.74 ghjs=660) MONOCYTES ABSOLUTE COUNT (BEAKER) (test 0.93 K/ L 0.24-0.36 fjgs=870) EOSINOPHILS ABSOLUTE COUNT (BEAKER) (test 0.08 K/ L 0.04-0.36 zozt=169) BASOPHILS ABSOLUTE COUNT (BEAKER) (test 0.02 K/ L 0.01-0.08 aqtr=306) IMMATURE GRANULOCYTES-RELATIVE PERCENT (BEAKER) 1 % 0-1 (test ldlp=3896) POCT-GLUCOSE [id number] 22:25:00 Test Item Value Reference Range Comments POC-GLUCOSE METER (BEAKER) 272 mg/dL 70-110 TESTED AT [address] (test qgzy=4158) [facility] [id number] POCT-GLUCOSE [id number] 22:25:00 Test Item Value Reference Range Comments POC-GLUCOSE METER (BEAKER) 232 mg/dL 70-110 TESTED AT [address] (test hkyu=6611) [facility] [address] POCT-GLUCOSE [id number] 16:09:00 Test Item Value Reference Range Comments POC-GLUCOSE METER (BEAKER) 77 mg/dL 70-110 TESTED AT [address] (test kcvp=2102) [place] [id number] POCT-GLUCOSE [id number] 11:33:00 Test Item Value Reference Range Comments POC-GLUCOSE METER (BEAKER) 154 mg/dL 70-110 TESTED AT [address] (test ljox=3546) [place] [id number] VRE [id number] 09:16:00 Test Item Value Reference Range Comments CULTURE (BEAKER) (test No vancomycin-resistant qkqt=6830) Enterococcus isolated POCT-GLUCOSE [id number] 07:47:00 Test Item Value Reference Range Comments POC-GLUCOSE METER (BEAKER) 130 mg/dL 70-110 TESTED AT [address] (test rfjk=4336) [place] [address] BASIC METABOLIC [id number] 05:38:00 Test Item Value Reference Range Comments SODIUM (BEAKER) (test 133 meq/L 136-145 nldn=064) POTASSIUM (BEAKER) (test 4.1 meq/L 3.5-5.1 gqah=094) CHLORIDE (BEAKER) (test 105 meq/L 98-107 bnih=923) CO2 (BEAKER) (test 17 meq/L 22-29 gwng=536) BLOOD UREA NITROGEN 56 mg/dL 7-21 (BEAKER) (test yeoc=527) CREATININE (BEAKER) (test 1.68 mg/dL 0.57-1.25 clgm=900) GLUCOSE RANDOM (BEAKER) 115 mg/dL 70-105 (test wfdx=830) CALCIUM (BEAKER) (test 8.7 mg/dL 8.4-10.2 ncgj=711) EGFR (BEAKER) (test 30 mL/min/1.73 sq m ESTIMATED GFR IS NOT qmrc=9567) ACCURATE CREATININE CLEARANCE IN PREDICTING GLOMERULAR FILTRATION RATE. ESTIMATED GFR IS NOT APPLICABLE FOR DIALYSIS PATIENTS. CBC W/PLT COUNT & AUTO [id number] 05:19:00 Test Item Value Reference Range Comments WHITE BLOOD CELL COUNT (BEAKER) (test wigi=374) 9.8 K/ L 3.5-10.5 RED BLOOD CELL COUNT (BEAKER) (test btcy=476) 3.09 M/ L 3.93-5.22 HEMOGLOBIN (BEAKER) (test iuom=648) 9.0 GM/DL 11.2-15.7 HEMATOCRIT (BEAKER) (test spdo=698) 27.6 % 34.1-44.9 MEAN CORPUSCULAR VOLUME (BEAKER) (test aobd=685) 89.3 fL 79.4-94.8 MEAN CORPUSCULAR HEMOGLOBIN (BEAKER) (test 29.1 pg 25.6-32.2 oqzq=802) MEAN CORPUSCULAR HEMOGLOBIN CONC (BEAKER) (test 32.6 GM/DL 32.2-35.5 fsrp=689) RED CELL DISTRIBUTION WIDTH (BEAKER) (test 17.5 % 11.7-14.4 yvpr=381) PLATELET COUNT (BEAKER) (test efli=762) 226 K/CU MM 150-450 MEAN PLATELET VOLUME (BEAKER) (test nnhf=506) 12.3 fL 9.4-12.3 NUCLEATED RED BLOOD CELLS (BEAKER) (test 0 /100 WBC 0-0 mjiv=005) NEUTROPHILS RELATIVE PERCENT (BEAKER) (test 81 % jpmm=895) LYMPHOCYTES RELATIVE PERCENT (BEAKER) (test 8 % wciy=289) MONOCYTES RELATIVE PERCENT (BEAKER) (test 10 % weqe=309) EOSINOPHILS RELATIVE PERCENT (BEAKER) (test 1 % euxs=090) BASOPHILS RELATIVE PERCENT (BEAKER) (test 0 % ujja=672) NEUTROPHILS ABSOLUTE COUNT (BEAKER) (test 7.89 K/ L 1.56-6.13 snfh=493) LYMPHOCYTES ABSOLUTE COUNT (BEAKER) (test 0.73 K/ L 1.18-3.74 habo=171) MONOCYTES ABSOLUTE COUNT (BEAKER) (test 0.93 K/ L 0.24-0.36 husl=990) EOSINOPHILS ABSOLUTE COUNT (BEAKER) (test 0.13 K/ L 0.04-0.36 kpwc=099) BASOPHILS ABSOLUTE COUNT (BEAKER) (test 0.03 K/ L 0.01-0.08 gppg=142) IMMATURE GRANULOCYTES-RELATIVE PERCENT (BEAKER) 1 % 0-1 (test uvpu=7624) EOSINOPHIL SMEAR, [id number] 04:30:00 Test Item Value Reference Range Comments EOSINOPHIL SMEAR, URINE (BEAKER) (test No EOS seen No EOS seen bdsx=5904) CREATININE, RANDOM [id number] 00:00:00 Test Item Value Reference Range Comments CREATININE URINE (BEAKER) (test neff=202) 29.1 mg/dL Reference Range: No NormalsPROTEIN, RANDOM [id number] 00:00:00 Test Item Value Reference Range Comments PROTEIN, URINE (BEAKER) (test bgiq=8641) 53 mg/dL 0-14 SODIUM, RANDOM [id number] 00:00:00 Test Item Value Reference Range Comments SODIUM URINE (BEAKER) (test cxwx=949) 66 meq/L Reference Range: No NormalsURINALYSIS W/ [id number] 23:53:00 Test Item Value Reference Range Comments COLOR (BEAKER) (test bxmj=366) Yellow CLARITY (BEAKER) (test gsht=108) Clear SPECIFIC GRAVITY UA (BEAKER) (test tdsc=800) 1.008 1.001-1.035 PH UA (BEAKER) (test qsbt=628) 5.0 5.0-8.0 PROTEIN UA (BEAKER) (test mxbg=721) 50 mg/dL Negative GLUCOSE UA (BEAKER) (test ykfo=971) Negative Negative KETONES UA (BEAKER) (test posb=906) Negative Negative BILIRUBIN UA (BEAKER) (test nhhu=698) Negative Negative BLOOD UA (BEAKER) (test ascs=258) Negative Negative NITRITE UA (BEAKER) (test nlri=932) Negative Negative LEUKOCYTE ESTERASE UA (BEAKER) (test wdbs=085) Negative Negative UROBILINOGEN UA (BEAKER) (test nzeo=594) 0.2 mg/dL 0.2-1.0 RBC UA (BEAKER) (test tsaj=209) < /HPF WBC UA (BEAKER) (test kdoa=589) 6 /HPF BACTERIA (BEAKER) (test gcei=176) Rare MUCUS (BEAKER) (test joqo=6692) Rare SQUAMOUS EPITHELIAL (BEAKER) (test lluy=566) < /HPF AMORPHOUS CRYSTALS (BEAKER) (test ywwa=2961) Rare SOURCE(BEAKER) (test scel=9087) Urine, Voided POCT-GLUCOSE [id number] 21:26:00 Test Item Value Reference Range Comments POC-GLUCOSE METER (BEAKER) 109 mg/dL 70-110 TESTED AT [facility] [address] [facility] (test ctgz=9176) [facility] [address] POCT-GLUCOSE [id number] 16:36:00 Test Item Value Reference Range Comments POC-GLUCOSE METER (BEAKER) 152 mg/dL 70-110 TESTED AT [address] (test zgyv=1257) [place] [address] [id number] 15:42:00 Test Item Value Reference Range Comments FERRITIN (BEAKER) (test hazc=981) 580 ng/mL 5-275 IRON, TIBC, % SAT. (WITHOUT FERRITIN)2018-04-24 15:21:00 Test Item Value Reference Range Comments IRON (BEAKER) (test gypc=798) 19.0 ug/dL 40.0-160.0 TOTAL IRON BINDING CAPACITY (BEAKER) (test 154 ug/dL 250-450 fqxy=111) IRON % SATURATION (2) (BEAKER) (test ykir=8026) 12 % 20-55 LACTATE DEHYDROGENASE (LDH)2018-04-24 15:19:00 Test Item Value Reference Range Comments LACTATE DEHYDROGENASE (BEAKER) (test fqnm=793) 204 U/L 125-220 PERIPHERAL BLOOD SMEAR - HOLD [id number] 15:17:00 Test Item Value Reference Range Comments PERIPHERAL SMEAR SAVE (BEAKER) (test tmst=5835) saved RETICULOCYTE [id number] 15:04:00 Test Item Value Reference Range Comments RETICULOCYTE COUNT PCT (AKER) (test jkdl=271) 1.7 % 0.5-1.7 POCT-GLUCOSE [id number] 12:07:00 Test Item Value Reference Range Comments POC-GLUCOSE METER (AKER) 181 mg/dL 70-110 TESTED AT [address] (test kmev=0570) [place] [address] WOUND CULTURE + GRAM [id number] 10:26:00 Test Item Value Reference Range Comments CULTURE (BEAKER) (test MORGANELLA MORGANII 1+ Morganella morganii yslm=9325) Amikacin (test code=1) Ampicillin + Sulbactam (test code=6) Aztreonam (test code=32) Cefepime (test code=51) Cefoxitin (test code=68) Ceftazidime (test code=27) Ceftriaxone (test code=52) Ertapenem (test code=38) Gentamicin (test code=18) Levofloxacin (test code=22) Meropenem (test code=34) Nitrofurantoin (test code=23) Piperacillin + Tazobactam (test code=29) Tetracycline (test code=2) Tobramycin (test code=25) Trimethoprim + Sulfamethoxazole (test code=47) CULTURE (BEAKER) (test METHICILLIN RESISTANT 4+ Methicillin iubf=1526) STAPHYLOCOCCUS AUREUS resistant Staphylococcus aureus Clindamycin (test code=10) Erythromycin (test code=4) Linezolid (test code=40) Nitrofurantoin (test code=23) Oxacillin (test code=14) Rifampin (test code=43) Tetracycline (test code=2) Trimethoprim + Sulfamethoxazole (test code=47) Vancomycin (test code=13) GRAM STAIN RESULT <1+ WBCs (BEAKER) (test fjzd=8426) GRAM STAIN RESULT 2+ gram negative rods (BEAKER) (test weqa=114071) GRAM STAIN RESULT <1+ gram positive rods (BEAKER) (test cmms=493138) 4+ Skin floraPOCT-GLUCOSE [id number] 07:47:00 Test Item Value Reference Range Comments POC-GLUCOSE METER (BEAKER) 128 mg/dL 70-110 TESTED AT [facility] [address] [facility] (test ystt=3357) [facility] [address] [id number] 04:27:00 Test Item Value Reference Range Comments PHOSPHORUS (BEAKER) (test zosq=213) 3.6 mg/dL 2.3-4.7 [id number] 04:27:00 Test Item Value Reference Range Comments MAGNESIUM (BEAKER) (test nvrs=339) 1.7 mg/dL 1.6-2.6 COMPREHENSIVE METABOLIC [id number] 04:27:00 Test Item Value Reference Range Comments TOTAL PROTEIN (BEAKER) 6.4 gm/dL 6.0-8.3 (test mttk=164) ALBUMIN (BEAKER) (test 3.1 g/dL 3.5-5.0 jevq=1675) ALKALINE PHOSPHATASE 182 U/L 40-150 (BEAKER) (test ahdd=009) BILIRUBIN TOTAL (BEAKER) 0.5 mg/dL 0.2-1.2 (test nieq=779) SODIUM (BEAKER) (test 133 meq/L 136-145 dbea=363) POTASSIUM (BEAKER) (test 4.5 meq/L 3.5-5.1 wnvo=753) CHLORIDE (BEAKER) (test 106 meq/L 98-107 ysku=320) CO2 (BEAKER) (test 18 meq/L 22-29 puds=631) BLOOD UREA NITROGEN 53 mg/dL 7-21 (BEAKER) (test ukon=889) CREATININE (BEAKER) (test 1.54 mg/dL 0.57-1.25 hbta=076) GLUCOSE RANDOM (BEAKER) 128 mg/dL 70-105 (test jgxv=251) CALCIUM (BEAKER) (test 8.8 mg/dL 8.4-10.2 fexx=547) AST (SGOT) (BEAKER) (test 12 U/L 5-34 jwqa=387) ALT (SGPT) (BEAKER) (test 31 U/L 6-55 fwgr=246) EGFR (BEAKER) (test 34 mL/min/1.73 sq m ESTIMATED GFR IS NOT iksc=1045) ACCURATE CREATININE CLEARANCE IN PREDICTING GLOMERULAR FILTRATION RATE. ESTIMATED GFR IS NOT APPLICABLE FOR DIALYSIS PATIENTS. CALCIUM, [id number] 04:21:00 Test Item Value Reference Range Comments CALCIUM IONIZED (BEAKER) (test sxno=488) 1.09 mmol/L 1.12-1.27 PH, BLOOD (BEAKER) (test feop=9279) 7.43 CBC W/PLT COUNT & AUTO [id number] 04:02:00 Test Item Value Reference Range Comments WHITE BLOOD CELL COUNT (BEAKER) (test bwru=424) 10.1 K/ L 3.5-10.5 RED BLOOD CELL COUNT (BEAKER) (test mcph=439) 2.34 M/ L 3.93-5.22 HEMOGLOBIN (BEAKER) (test cbyu=635) 7.0 GM/DL 11.2-15.7 HEMATOCRIT (BEAKER) (test eiuj=605) 21.9 % 34.1-44.9 MEAN CORPUSCULAR VOLUME (BEAKER) (test fkhx=992) 93.6 fL 79.4-94.8 MEAN CORPUSCULAR HEMOGLOBIN (BEAKER) (test 29.9 pg 25.6-32.2 mwbi=868) MEAN CORPUSCULAR HEMOGLOBIN CONC (BEAKER) (test 32.0 GM/DL 32.2-35.5 lmny=401) RED CELL DISTRIBUTION WIDTH (BEAKER) (test 16.9 % 11.7-14.4 gvdp=801) PLATELET COUNT (BEAKER) (test dotv=027) 192 K/CU MM 150-450 MEAN PLATELET VOLUME (BEAKER) (test ckzj=932) 12.3 fL 9.4-12.3 NUCLEATED RED BLOOD CELLS (BEAKER) (test 0 /100 WBC 0-0 pjzo=566) NEUTROPHILS RELATIVE PERCENT (BEAKER) (test 78 % yvll=729) LYMPHOCYTES RELATIVE PERCENT (BEAKER) (test 12 % qjxy=970) MONOCYTES RELATIVE PERCENT (BEAKER) (test 9 % tmhi=519) EOSINOPHILS RELATIVE PERCENT (BEAKER) (test 1 % olfj=033) BASOPHILS RELATIVE PERCENT (BEAKER) (test 0 % zisk=043) NEUTROPHILS ABSOLUTE COUNT (BEAKER) (test 7.91 K/ L 1.56-6.13 vjme=247) LYMPHOCYTES ABSOLUTE COUNT (BEAKER) (test 1.17 K/ L 1.18-3.74 abvb=971) MONOCYTES ABSOLUTE COUNT (BEAKER) (test 0.89 K/ L 0.24-0.36 vwdf=685) EOSINOPHILS ABSOLUTE COUNT (BEAKER) (test 0.07 K/ L 0.04-0.36 uekj=073) BASOPHILS ABSOLUTE COUNT (BEAKER) (test 0.03 K/ L 0.01-0.08 dkcz=745) IMMATURE GRANULOCYTES-RELATIVE PERCENT (BEAKER) 1 % 0-1 (test tafj=7969) POCT-GLUCOSE [id number] 22:21:00 Test Item Value Reference Range Comments POC-GLUCOSE METER (BEAKER) 100 mg/dL 70-110 TESTED AT [address] (test miie=9643) [facility] [address] POCT-GLUCOSE [id number] 16:43:00 Test Item Value Reference Range Comments POC-GLUCOSE METER (BEAKER) 200 mg/dL 70-110 TESTED AT [address] (test cvka=1411) [facility] [address] POCT-GLUCOSE [id number] 12:27:00 Test Item Value Reference Range Comments POC-GLUCOSE METER (BEAKER) 311 mg/dL 70-110 TESTED AT [address] (test uhel=8581) [facility] [address] POCT-GLUCOSE [id number] 09:00:00 Test Item Value Reference Range Comments POC-GLUCOSE METER (BEAKER) 132 mg/dL 70-110 TESTED AT [facility] [address] (test rgpa=5017) [facility] [address] WOUND CULTURE + GRAM [id number] 07:52:00 Test Item Value Reference Range Comments CULTURE (BEAKER) (test ENTEROCOCCUS SPECIES 2+ Enterococcus species xtea=9386) Ampicillin (test code=26) Linezolid (test code=40) Tetracycline (test code=2) Vancomycin (test code=13) GRAM STAIN RESULT 2+ WBCs (BEAKER) (test hgom=9676) GRAM STAIN RESULT No organisms seen (BEAKER) (test hlsm=408313) GRAM STAIN RESULT No organisms seen (BEAKER) (test scsn=075080) Organism(s) under evaluationBASIC METABOLIC [id number] 06:53:00 Test Item Value Reference Range Comments SODIUM (BEAKER) (test 136 meq/L 136-145 awqu=679) POTASSIUM (BEAKER) (test 4.5 meq/L 3.5-5.1 wovz=738) CHLORIDE (BEAKER) (test 108 meq/L 98-107 ncuc=685) CO2 (BEAKER) (test 18 meq/L 22-29 whrv=278) BLOOD UREA NITROGEN 55 mg/dL 7-21 (BEAKER) (test upnm=718) CREATININE (BEAKER) (test 1.58 mg/dL 0.57-1.25 itrw=334) GLUCOSE RANDOM (BEAKER) 109 mg/dL 70-105 (test agbp=702) CALCIUM (BEAKER) (test 8.7 mg/dL 8.4-10.2 bwfx=808) EGFR (BEAKER) (test 33 mL/min/1.73 sq m ESTIMATED GFR IS NOT loqr=5280) ACCURATE CREATININE CLEARANCE IN PREDICTING GLOMERULAR FILTRATION RATE. ESTIMATED GFR IS NOT APPLICABLE FOR DIALYSIS PATIENTS. CBC W/PLT COUNT & AUTO [id number] 06:46:00 Test Item Value Reference Range Comments WHITE BLOOD CELL COUNT (BEAKER) (test vsgb=250) 11.5 K/ L 3.5-10.5 RED BLOOD CELL COUNT (BEAKER) (test sxtt=834) 2.57 M/ L 3.93-5.22 HEMOGLOBIN (BEAKER) (test iohr=607) 7.6 GM/DL 11.2-15.7 HEMATOCRIT (BEAKER) (test kfgb=619) 23.9 % 34.1-44.9 MEAN CORPUSCULAR VOLUME (BEAKER) (test wuzg=618) 93.0 fL 79.4-94.8 MEAN CORPUSCULAR HEMOGLOBIN (BEAKER) (test 29.6 pg 25.6-32.2 omcq=208) MEAN CORPUSCULAR HEMOGLOBIN CONC (BEAKER) (test 31.8 GM/DL 32.2-35.5 uvwm=887) RED CELL DISTRIBUTION WIDTH (BEAKER) (test 17.2 % 11.7-14.4 dzvi=827) PLATELET COUNT (BEAKER) (test ghpo=112) 193 K/CU MM 150-450 MEAN PLATELET VOLUME (BEAKER) (test cfuz=978) 12.3 fL 9.4-12.3 NUCLEATED RED BLOOD CELLS (BEAKER) (test 0 /100 WBC 0-0 poxw=430) NEUTROPHILS RELATIVE PERCENT (BEAKER) (test 83 % njfa=125) LYMPHOCYTES RELATIVE PERCENT (BEAKER) (test 9 % jgib=214) MONOCYTES RELATIVE PERCENT (BEAKER) (test 7 % alxe=281) EOSINOPHILS RELATIVE PERCENT (BEAKER) (test 0 % ufec=428) BASOPHILS RELATIVE PERCENT (BEAKER) (test 0 % tblj=247) NEUTROPHILS ABSOLUTE COUNT (BEAKER) (test 9.57 K/ L 1.56-6.13 fxqp=913) LYMPHOCYTES ABSOLUTE COUNT (BEAKER) (test 0.98 K/ L 1.18-3.74 ampy=932) MONOCYTES ABSOLUTE COUNT (BEAKER) (test 0.80 K/ L 0.24-0.36 lnko=899) EOSINOPHILS ABSOLUTE COUNT (BEAKER) (test 0.05 K/ L 0.04-0.36 hozz=621) BASOPHILS ABSOLUTE COUNT (BEAKER) (test 0.03 K/ L 0.01-0.08 zxio=214) IMMATURE GRANULOCYTES-RELATIVE PERCENT (BEAKER) 0 % 0-1 (test qfxe=4547) POCT-GLUCOSE [id number] 18:24:00 Test Item Value Reference Range Comments POC-GLUCOSE METER (BEAKER) 206 mg/dL 70-110 TESTED AT [address] (test asdc=5730) [place] [id number] POCT-GLUCOSE [id number] 13:58:00 Test Item Value Reference Range Comments POC-GLUCOSE METER (BEAKER) 80 mg/dL 70-110 TESTED AT [address] (test mdfi=5268) [place] [address] HEMOGLOBIN [id number] 13:25:00 Test Item Value Reference Range Comments HEMOGLOBIN A1C (BEAKER) (test bsjt=682) 7.2 % 4.3-6.1 POCT-GLUCOSE [id number] 12:34:00 Test Item Value Reference Range Comments POC-GLUCOSE METER (BEAKER) 119 mg/dL 70-110 TESTED AT [address] (test tinx=2488) [place] [address] TSH/FREE T4 IF [id number] 12:08:00 Test Item Value Reference Range Comments THYROID STIMULATING HORMONE (BEAKER) (test 1.04 uIU/mL 0.35-4.94 jjge=584) POCT-GLUCOSE [id number] 08:16:00 Test Item Value Reference Range Comments POC-GLUCOSE METER (BEAKER) 153 mg/dL 70-110 TESTED AT [address] (test tmeb=7855) [place] [address] CBC W/PLT COUNT & AUTO [id number] 07:29:00 Test Item Value Reference Range Comments WHITE BLOOD CELL COUNT (BEAKER) (test rmib=781) 10.8 K/ L 3.5-10.5 RED BLOOD CELL COUNT (BEAKER) (test jxok=754) 2.66 M/ L 3.93-5.22 HEMOGLOBIN (BEAKER) (test vbpc=467) 7.9 GM/DL 11.2-15.7 HEMATOCRIT (BEAKER) (test qldn=429) 24.7 % 34.1-44.9 MEAN CORPUSCULAR VOLUME (BEAKER) (test whmm=634) 92.9 fL 79.4-94.8 MEAN CORPUSCULAR HEMOGLOBIN (BEAKER) (test 29.7 pg 25.6-32.2 dide=371) MEAN CORPUSCULAR HEMOGLOBIN CONC (BEAKER) (test 32.0 GM/DL 32.2-35.5 onuz=233) RED CELL DISTRIBUTION WIDTH (BEAKER) (test 17.7 % 11.7-14.4 hddf=235) PLATELET COUNT (BEAKER) (test xezs=788) 217 K/CU MM 150-450 MEAN PLATELET VOLUME (BEAKER) (test cxgq=638) 12.6 fL 9.4-12.3 NUCLEATED RED BLOOD CELLS (BEAKER) (test 0 /100 WBC 0-0 mopu=725) NEUTROPHILS RELATIVE PERCENT (BEAKER) (test 79 % dcqn=237) LYMPHOCYTES RELATIVE PERCENT (BEAKER) (test 8 % bppo=672) MONOCYTES RELATIVE PERCENT (BEAKER) (test 9 % heop=653) EOSINOPHILS RELATIVE PERCENT (BEAKER) (test 3 % bdbf=122) BASOPHILS RELATIVE PERCENT (BEAKER) (test 1 % yorv=750) NEUTROPHILS ABSOLUTE COUNT (BEAKER) (test 8.52 K/ L 1.56-6.13 viuk=234) LYMPHOCYTES ABSOLUTE COUNT (BEAKER) (test 0.90 K/ L 1.18-3.74 lfte=309) MONOCYTES ABSOLUTE COUNT (BEAKER) (test 0.92 K/ L 0.24-0.36 wezb=144) EOSINOPHILS ABSOLUTE COUNT (BEAKER) (test 0.31 K/ L 0.04-0.36 dinc=470) BASOPHILS ABSOLUTE COUNT (BEAKER) (test 0.05 K/ L 0.01-0.08 ndwp=243) IMMATURE GRANULOCYTES-RELATIVE PERCENT (BEAKER) 1 % 0-1 (test qtct=1970) [id number] 06:06:00 Test Item Value Reference Range Comments MAGNESIUM (BEAKER) (test kaom=819) 1.8 mg/dL 1.6-2.6 BASIC METABOLIC [id number] 06:06:00 Test Item Value Reference Range Comments SODIUM (BEAKER) (test 135 meq/L 136-145 plxo=432) POTASSIUM (BEAKER) (test 4.6 meq/L 3.5-5.1 nfcr=912) CHLORIDE (BEAKER) (test 108 meq/L 98-107 wugo=139) CO2 (BEAKER) (test 18 meq/L 22-29 qgcw=603) BLOOD UREA NITROGEN 55 mg/dL 7-21 (BEAKER) (test urhb=513) CREATININE (BEAKER) (test 1.51 mg/dL 0.57-1.25 oyzk=327) GLUCOSE RANDOM (BEAKER) 147 mg/dL 70-105 (test thbu=748) CALCIUM (BEAKER) (test 8.8 mg/dL 8.4-10.2 cgqm=453) EGFR (BEAKER) (test 34 mL/min/1.73 sq m ESTIMATED GFR IS NOT lama=6230) ACCURATE CREATININE CLEARANCE IN PREDICTING GLOMERULAR FILTRATION RATE. ESTIMATED GFR IS NOT APPLICABLE FOR DIALYSIS PATIENTS. HEPATIC FUNCTION [id number] 06:06:00 Test Item Value Reference Range Comments TOTAL PROTEIN (BEAKER) (test wppd=234) 7.1 gm/dL 6.0-8.3 ALBUMIN (BEAKER) (test usfd=4567) 3.5 g/dL 3.5-5.0 BILIRUBIN TOTAL (BEAKER) (test knpw=695) 0.4 mg/dL 0.2-1.2 BILIRUBIN DIRECT (BEAKER) (test guuj=514) 0.3 mg/dL 0.1-0.5 ALKALINE PHOSPHATASE (BEAKER) (test rpgv=874) 252 U/L 40-150 AST (SGOT) (BEAKER) (test ypyz=447) 25 U/L 5-34 ALT (SGPT) (BEAKER) (test ignb=150) 48 U/L 6-55 PROTHROMBIN [id number] 05:54:00 Test Item Value Reference Range Comments PROTIME (BEAKER) (test endr=430) 16.1 seconds 11.7-14.7 INR (BEAKER) (test rcrq=413) 1.3 <=5.9 RECOMMENDED COUMADIN/WARFARIN INR THERAPY RANGESSTANDARD DOSE: 2.0 - 3.0 Includes: PROPHYLAXIS forvenous thrombosis, systemic embolization; TREATMENT for venous thrombosis and/or pulmonary embolus.HIGH RISK: Target INR is 2.5-3.5 for patients with mechanical heart valves.POCT-GLUCOSE [id number] 20:20:00 Test Item Value Reference Range Comments POC-GLUCOSE METER (BEAKER) 221 mg/dL 70-110 TESTED AT [facility] [address] [facility] (test mxka=1635) [facility] [address] POCT-GLUCOSE [id number] 17:23:00 Test Item Value Reference Range Comments POC-GLUCOSE METER (BEAKER) 214 mg/dL 70-110 TESTED AT [address] (test ztky=0560) [facility] [address] BASIC METABOLIC [id number] 14:09:00 Test Item Value Reference Range Comments SODIUM (BEAKER) (test 136 meq/L 136-145 txkn=033) POTASSIUM (BEAKER) (test 5.1 meq/L 3.5-5.1 Specimen slightly jmds=188) hemolyzed CHLORIDE (BEAKER) (test 108 meq/L 98-107 ymkn=756) CO2 (BEAKER) (test 18 meq/L 22-29 qdop=036) BLOOD UREA NITROGEN 61 mg/dL 7-21 (BEAKER) (test lvmv=651) CREATININE (BEAKER) (test 1.71 mg/dL 0.57-1.25 Specimen slightly wbsm=176) hemolyzed GLUCOSE RANDOM (BEAKER) 214 mg/dL 70-105 (test swhh=422) CALCIUM (BEAKER) (test 9.0 mg/dL 8.4-10.2 qgwo=112) EGFR (BEAKER) (test 30 mL/min/1.73 sq m ESTIMATED GFR IS NOT hhti=0165) ACCURATE CREATININE CLEARANCE IN PREDICTING GLOMERULAR FILTRATION RATE. ESTIMATED GFR IS NOT APPLICABLE FOR DIALYSIS PATIENTS. CBC W/PLT COUNT & AUTO [id number] 14:05:00 Test Item Value Reference Range Comments WHITE BLOOD CELL COUNT (BEAKER) (test tyar=030) 8.4 K/ L 3.5-10.5 RED BLOOD CELL COUNT (BEAKER) (test zldx=143) 2.11 M/ L 3.93-5.22 HEMOGLOBIN (BEAKER) (test thoy=841) 6.4 GM/DL 11.2-15.7 HEMATOCRIT (BEAKER) (test xonw=288) 20.0 % 34.1-44.9 MEAN CORPUSCULAR VOLUME (BEAKER) (test yerm=073) 94.8 fL 79.4-94.8 MEAN CORPUSCULAR HEMOGLOBIN (BEAKER) (test 30.3 pg 25.6-32.2 xfnd=460) MEAN CORPUSCULAR HEMOGLOBIN CONC (BEAKER) (test 32.0 GM/DL 32.2-35.5 xqdh=490) RED CELL DISTRIBUTION WIDTH (BEAKER) (test 17.1 % 11.7-14.4 flgv=750) PLATELET COUNT (BEAKER) (test idwu=316) 204 K/CU MM 150-450 MEAN PLATELET VOLUME (BEAKER) (test eeit=064) 12.5 fL 9.4-12.3 NUCLEATED RED BLOOD CELLS (BEAKER) (test 0 /100 WBC 0-0 rsvb=235) NEUTROPHILS RELATIVE PERCENT (BEAKER) (test 72 % viac=161) LYMPHOCYTES RELATIVE PERCENT (BEAKER) (test 15 % kolo=945) MONOCYTES RELATIVE PERCENT (BEAKER) (test 8 % rwtl=461) EOSINOPHILS RELATIVE PERCENT (BEAKER) (test 4 % jdqz=883) BASOPHILS RELATIVE PERCENT (BEAKER) (test 1 % kcio=110) NEUTROPHILS ABSOLUTE COUNT (BEAKER) (test 6.02 K/ L 1.56-6.13 kinq=241) LYMPHOCYTES ABSOLUTE COUNT (BEAKER) (test 1.25 K/ L 1.18-3.74 xfqo=600) MONOCYTES ABSOLUTE COUNT (BEAKER) (test 0.63 K/ L 0.24-0.36 leoh=134) EOSINOPHILS ABSOLUTE COUNT (BEAKER) (test 0.31 K/ L 0.04-0.36 kqup=027) BASOPHILS ABSOLUTE COUNT (BEAKER) (test 0.04 K/ L 0.01-0.08 yosk=359) IMMATURE GRANULOCYTES-RELATIVE PERCENT (BEAKER) 1 % 0-1 (test sjgo=0424) [id number] 14:05:00 Test Item Value Reference Range Comments PROTIME (BEAKER) (test esqw=361) 15.7 seconds 11.7-14.7 INR (BEAKER) (test pccu=038) 1.3 <=5.9 PARTIAL THROMBOPLASTIN TIME (BEAKER) (test 29.3 seconds 22.5-36.0 emla=144) RECOMMENDED COUMADIN/WARFARIN INR THERAPY RANGESSTANDARD DOSE: 2.0 - 3.0 Includes: PROPHYLAXIS forvenous thrombosis, systemic embolization; TREATMENT for venous thrombosis and/or pulmonary embolus.HIGH RISK: Target INR is 2.5-3.5 for patients with mechanical heart valves.AFB CULTURE + [id number] 07:07:00 Test Item Value Reference Range Comments CULTURE (BEAKER) (test No acid-fast bacilli isolated fhkl=8839) in 42 days AFB SMEAR (BEAKER) (test No acid fast bacilli seen vnnb=032) AFB CULTURE + [id number] 07:07:00 Test Item Value Reference Range Comments CULTURE (BEAKER) (test No acid-fast bacilli isolated kcbq=8901) in 42 days AFB SMEAR (BEAKER) (test No acid fast bacilli seen zrlc=072) FUNGUS CULTURE + [id number] 07:38:00 Test Item Value Reference Range Comments CULTURE (BEAKER) (test No fungus isolated in 28 days fpcp=9266) FUNGUS SMEAR (BEAKER) (test No fungi seen hfal=3577) FUNGUS CULTURE + [id number] 07:38:00 Test Item Value Reference Range Comments CULTURE (BEAKER) (test No fungus isolated in 28 days oqxe=4571) FUNGUS SMEAR (BEAKER) (test No fungi seen iqgo=7861) POCT-GLUCOSE [id number] 07:56:00 Test Item Value Reference Range Comments POC-GLUCOSE METER (BEAKER) 123 mg/dL 70-110 TESTED AT [facility] [address] [place] [address] (test boou=2661) [facility] [address] BASIC METABOLIC [id number] 07:11:00 Test Item Value Reference Range Comments SODIUM (BEAKER) (test 139 meq/L 136-145 qclw=986) POTASSIUM (BEAKER) (test 4.3 meq/L 3.5-5.1 mykk=311) CHLORIDE (BEAKER) (test 108 meq/L 98-107 viec=192) CO2 (BEAKER) (test 24 meq/L 22-29 zxac=377) BLOOD UREA NITROGEN 35 mg/dL 7-21 (BEAKER) (test gqqi=648) CREATININE (BEAKER) (test 2.32 mg/dL 0.57-1.25 svgf=557) GLUCOSE RANDOM (BEAKER) 105 mg/dL 70-105 (test numv=020) CALCIUM (BEAKER) (test 9.1 mg/dL 8.4-10.2 qujv=453) EGFR (BEAKER) (test 21 mL/min/1.73 sq m ESTIMATED GFR IS NOT clho=4063) ACCURATE CREATININE CLEARANCE IN PREDICTING GLOMERULAR FILTRATION RATE. ESTIMATED GFR IS NOT APPLICABLE FOR DIALYSIS PATIENTS. [id number] 07:05:00 Test Item Value Reference Range Comments MAGNESIUM (BEAKER) (test iqwz=096) 1.6 mg/dL 1.6-2.6 POCT-GLUCOSE [id number] 23:30:00 Test Item Value Reference Range Comments POC-GLUCOSE METER (BEAKER) 129 mg/dL 70-110 TESTED AT [place] [id number] [facility] (test urja=0736) [facility] [address] POCT-GLUCOSE [id number] 17:02:00 Test Item Value Reference Range Comments POC-GLUCOSE METER (BEAKER) 157 mg/dL 70-110 TESTED AT [address] (test cayk=4556) [place] [id number] POCT-GLUCOSE [id number] 08:01:00 Test Item Value Reference Range Comments POC-GLUCOSE METER (BEAKER) 126 mg/dL 70-110 TESTED AT [address] (test dvdl=4322) [place] [id number] BASIC METABOLIC [id number] 07:31:00 Test Item Value Reference Range Comments SODIUM (BEAKER) (test 135 meq/L 136-145 zoxj=450) POTASSIUM (BEAKER) (test 4.7 meq/L 3.5-5.1 hxjl=318) CHLORIDE (BEAKER) (test 106 meq/L 98-107 lnvq=968) CO2 (BEAKER) (test 24 meq/L 22-29 wmib=546) BLOOD UREA NITROGEN 35 mg/dL 7-21 (BEAKER) (test eiok=494) CREATININE (BEAKER) (test 2.47 mg/dL 0.57-1.25 wfqi=691) GLUCOSE RANDOM (BEAKER) 107 mg/dL 70-105 (test hmse=752) CALCIUM (BEAKER) (test 8.8 mg/dL 8.4-10.2 cvbk=004) EGFR (BEAKER) (test 20 mL/min/1.73 sq m ESTIMATED GFR IS NOT geuk=5668) ACCURATE CREATININE CLEARANCE IN PREDICTING GLOMERULAR FILTRATION RATE. ESTIMATED GFR IS NOT APPLICABLE FOR DIALYSIS PATIENTS. [id number] 07:29:00 Test Item Value Reference Range Comments MAGNESIUM (BEAKER) (test kbjb=211) 1.7 mg/dL 1.6-2.6 CBC W/PLT COUNT & AUTO [id number] 06:43:00 Test Item Value Reference Range Comments WHITE BLOOD CELL COUNT (BEAKER) (test zssl=013) 6.5 K/ L 3.5-10.5 RED BLOOD CELL COUNT (BEAKER) (test tfav=736) 2.91 M/ L 3.93-5.22 HEMOGLOBIN (BEAKER) (test zbaa=280) 8.6 GM/DL 11.2-15.7 HEMATOCRIT (BEAKER) (test pyvw=945) 27.4 % 34.1-44.9 MEAN CORPUSCULAR VOLUME (BEAKER) (test yout=361) 94.2 fL 79.4-94.8 MEAN CORPUSCULAR HEMOGLOBIN (BEAKER) (test 29.6 pg 25.6-32.2 pgyi=791) MEAN CORPUSCULAR HEMOGLOBIN CONC (BEAKER) (test 31.4 GM/DL 32.2-35.5 gpwy=650) RED CELL DISTRIBUTION WIDTH (BEAKER) (test 17.2 % 11.7-14.4 atua=709) PLATELET COUNT (BEAKER) (test hzjr=679) 171 K/CU MM 150-450 MEAN PLATELET VOLUME (BEAKER) (test zhgl=210) 12.8 fL 9.4-12.3 NUCLEATED RED BLOOD CELLS (BEAKER) (test 0 /100 WBC 0-0 ugmr=358) NEUTROPHILS RELATIVE PERCENT (BEAKER) (test 71 % zqul=600) LYMPHOCYTES RELATIVE PERCENT (BEAKER) (test 19 % pjqf=213) MONOCYTES RELATIVE PERCENT (BEAKER) (test 6 % yhaf=997) EOSINOPHILS RELATIVE PERCENT (BEAKER) (test 3 % tjyb=837) BASOPHILS RELATIVE PERCENT (BEAKER) (test 1 % chdt=507) NEUTROPHILS ABSOLUTE COUNT (BEAKER) (test 4.61 K/ L 1.56-6.13 etlq=741) LYMPHOCYTES ABSOLUTE COUNT (BEAKER) (test 1.26 K/ L 1.18-3.74 hiog=762) MONOCYTES ABSOLUTE COUNT (BEAKER) (test 0.42 K/ L 0.24-0.36 rueg=954) EOSINOPHILS ABSOLUTE COUNT (BEAKER) (test 0.19 K/ L 0.04-0.36 hcem=236) BASOPHILS ABSOLUTE COUNT (BEAKER) (test 0.03 K/ L 0.01-0.08 bppg=047) IMMATURE GRANULOCYTES-RELATIVE PERCENT (BEAKER) 0 % 0-1 (test rzev=3169) POCT-GLUCOSE [id number] 21:07:00 Test Item Value Reference Range Comments POC-GLUCOSE METER (BEAKER) 116 mg/dL 70-110 TESTED AT [address] (test cmwz=7200) [facility] [address] POCT-GLUCOSE [id number] 17:47:00 Test Item Value Reference Range Comments POC-GLUCOSE METER (BEAKER) 105 mg/dL 70-110 TESTED AT [address] (test pbds=3626) [facility] [address] POCT-GLUCOSE [id number] 12:14:00 Test Item Value Reference Range Comments POC-GLUCOSE METER (BEAKER) 132 mg/dL 70-110 TESTED AT [address] (test mjbw=5041) [place] [id number] POCT-GLUCOSE [id number] 08:07:00 Test Item Value Reference Range Comments POC-GLUCOSE METER (BEAKER) 115 mg/dL 70-110 TESTED AT [address] (test luln=1270) [facility] [address] BASIC METABOLIC [id number] 06:56:00 Test Item Value Reference Range Comments SODIUM (BEAKER) (test 132 meq/L 136-145 rotw=244) POTASSIUM (BEAKER) (test 4.4 meq/L 3.5-5.1 ffce=688) CHLORIDE (BEAKER) (test 102 meq/L 98-107 kjeq=059) CO2 (BEAKER) (test 22 meq/L 22-29 uqxg=202) BLOOD UREA NITROGEN 35 mg/dL 7-21 (BEAKER) (test wlsk=329) CREATININE (BEAKER) (test 2.46 mg/dL 0.57-1.25 jvaq=976) GLUCOSE RANDOM (BEAKER) 111 mg/dL 70-105 (test mczp=988) CALCIUM (BEAKER) (test 8.5 mg/dL 8.4-10.2 ixjg=184) EGFR (BEAKER) (test 20 mL/min/1.73 sq m ESTIMATED GFR IS NOT ojio=6614) ACCURATE CREATININE CLEARANCE IN PREDICTING GLOMERULAR FILTRATION RATE. ESTIMATED GFR IS NOT APPLICABLE FOR DIALYSIS PATIENTS. [id number] 06:49:00 Test Item Value Reference Range Comments MAGNESIUM (BEAKER) (test yctk=925) 1.6 mg/dL 1.6-2.6 POCT-GLUCOSE [id number] 21:07:00 Test Item Value Reference Range Comments POC-GLUCOSE METER (BEAKER) 141 mg/dL 70-110 TESTED AT [address] (test bvvs=3278) [place] [address] POCT-GLUCOSE [id number] 21:04:00 Test Item Value Reference Range Comments POC-GLUCOSE METER (BEAKER) 73 mg/dL 70-110 TESTED AT [address] (test lijx=0245) [place] [address] POCT-GLUCOSE [id number] 17:09:00 Test Item Value Reference Range Comments POC-GLUCOSE METER (BEAKER) 142 mg/dL 70-110 TESTED AT [address] (test qlsf=6230) [place] [address] BASIC METABOLIC [id number] 07:57:00 Test Item Value Reference Range Comments SODIUM (BEAKER) (test 135 meq/L 136-145 klpu=183) POTASSIUM (BEAKER) (test 4.5 meq/L 3.5-5.1 birb=927) CHLORIDE (BEAKER) (test 104 meq/L 98-107 zhzr=885) CO2 (BEAKER) (test 22 meq/L 22-29 pajl=246) BLOOD UREA NITROGEN 32 mg/dL 7-21 (BEAKER) (test ynsv=234) CREATININE (BEAKER) (test 2.57 mg/dL 0.57-1.25 jsyi=538) GLUCOSE RANDOM (BEAKER) 122 mg/dL 70-105 (test pxka=611) CALCIUM (BEAKER) (test 8.9 mg/dL 8.4-10.2 lcvg=862) EGFR (BEAKER) (test 19 mL/min/1.73 sq m ESTIMATED GFR IS NOT xadm=9457) ACCURATE CREATININE CLEARANCE IN PREDICTING GLOMERULAR FILTRATION RATE. ESTIMATED GFR IS NOT APPLICABLE FOR DIALYSIS PATIENTS. [id number] 07:56:00 Test Item Value Reference Range Comments MAGNESIUM (BEAKER) (test yxsn=374) 2.0 mg/dL 1.6-2.6 POCT-GLUCOSE [id number] 07:35:00 Test Item Value Reference Range Comments POC-GLUCOSE METER (BEAKER) 137 mg/dL 70-110 TESTED AT [address] (test jksg=4762) [place] [address] CBC W/PLT COUNT & AUTO [id number] 06:43:00 Test Item Value Reference Range Comments WHITE BLOOD CELL COUNT (BEAKER) (test bkkd=535) 6.3 K/ L 3.5-10.5 RED BLOOD CELL COUNT (BEAKER) (test dfxb=026) 2.93 M/ L 3.93-5.22 HEMOGLOBIN (BEAKER) (test jabk=603) 8.6 GM/DL 11.2-15.7 HEMATOCRIT (BEAKER) (test kdnc=643) 27.4 % 34.1-44.9 MEAN CORPUSCULAR VOLUME (BEAKER) (test gupf=122) 93.5 fL 79.4-94.8 MEAN CORPUSCULAR HEMOGLOBIN (BEAKER) (test 29.4 pg 25.6-32.2 yuze=140) MEAN CORPUSCULAR HEMOGLOBIN CONC (BEAKER) (test 31.4 GM/DL 32.2-35.5 zock=275) RED CELL DISTRIBUTION WIDTH (BEAKER) (test 16.8 % 11.7-14.4 qmwt=287) PLATELET COUNT (BEAKER) (test rsto=613) 185 K/CU MM 150-450 MEAN PLATELET VOLUME (BEAKER) (test thte=978) 13.5 fL 9.4-12.3 NUCLEATED RED BLOOD CELLS (BEAKER) (test 0 /100 WBC 0-0 lyvp=665) NEUTROPHILS RELATIVE PERCENT (BEAKER) (test 65 % wmsk=756) LYMPHOCYTES RELATIVE PERCENT (BEAKER) (test 22 % akzk=264) MONOCYTES RELATIVE PERCENT (BEAKER) (test 9 % ulov=798) EOSINOPHILS RELATIVE PERCENT (BEAKER) (test 3 % rwyk=072) BASOPHILS RELATIVE PERCENT (BEAKER) (test 1 % atcg=016) NEUTROPHILS ABSOLUTE COUNT (BEAKER) (test 4.11 K/ L 1.56-6.13 yqyg=539) LYMPHOCYTES ABSOLUTE COUNT (BEAKER) (test 1.40 K/ L 1.18-3.74 uxci=989) MONOCYTES ABSOLUTE COUNT (BEAKER) (test 0.54 K/ L 0.24-0.36 vkdh=333) EOSINOPHILS ABSOLUTE COUNT (BEAKER) (test 0.21 K/ L 0.04-0.36 uule=849) BASOPHILS ABSOLUTE COUNT (BEAKER) (test 0.04 K/ L 0.01-0.08 ydry=267) IMMATURE GRANULOCYTES-RELATIVE PERCENT (BEAKER) 0 % 0-1 (test pste=2155) POCT-GLUCOSE [id number] 22:30:00 Test Item Value Reference Range Comments POC-GLUCOSE METER (BEAKER) 152 mg/dL 70-110 TESTED AT [address] (test jkau=0616) [place] [id number] POCT-GLUCOSE [id number] 17:17:00 Test Item Value Reference Range Comments POC-GLUCOSE METER (BEAKER) 154 mg/dL 70-110 TESTED AT [address] (test vlsx=9496) [place] [address] POCT-GLUCOSE [id number] 13:09:00 Test Item Value Reference Range Comments POC-GLUCOSE METER (BEAKER) 125 mg/dL 70-110 TESTED AT [address] (test sqgr=6182) [place] [address] POCT-GLUCOSE [id number] 09:25:00 Test Item Value Reference Range Comments POC-GLUCOSE METER (BEAKER) 119 mg/dL 70-110 TESTED AT [address] (test pkjq=5700) [place] [address] BASIC METABOLIC [id number] 07:53:00 Test Item Value Reference Range Comments SODIUM (BEAKER) (test 134 meq/L 136-145 ziuw=404) POTASSIUM (BEAKER) (test 4.5 meq/L 3.5-5.1 whps=744) CHLORIDE (BEAKER) (test 105 meq/L 98-107 rwxe=855) CO2 (BEAKER) (test 21 meq/L 22-29 ejln=398) BLOOD UREA NITROGEN 32 mg/dL 7-21 (BEAKER) (test hakp=579) CREATININE (BEAKER) (test 2.49 mg/dL 0.57-1.25 nbmb=208) GLUCOSE RANDOM (BEAKER) 111 mg/dL 70-105 (test hhce=423) CALCIUM (BEAKER) (test 8.7 mg/dL 8.4-10.2 giqk=620) EGFR (BEAKER) (test 19 mL/min/1.73 sq m ESTIMATED GFR IS NOT hadw=9801) ACCURATE CREATININE CLEARANCE IN PREDICTING GLOMERULAR FILTRATION RATE. ESTIMATED GFR IS NOT APPLICABLE FOR DIALYSIS PATIENTS. [id number] 07:47:00 Test Item Value Reference Range Comments MAGNESIUM (BEAKER) (test smea=910) 1.4 mg/dL 1.6-2.6 CBC W/PLT COUNT & AUTO [id number] 06:42:00 Test Item Value Reference Range Comments WHITE BLOOD CELL COUNT (BEAKER) (test jzdm=063) 6.5 K/ L 3.5-10.5 RED BLOOD CELL COUNT (BEAKER) (test busz=350) 3.06 M/ L 3.93-5.22 HEMOGLOBIN (BEAKER) (test wjou=570) 9.1 GM/DL 11.2-15.7 HEMATOCRIT (BEAKER) (test aduv=728) 29.3 % 34.1-44.9 MEAN CORPUSCULAR VOLUME (BEAKER) (test djrt=553) 95.8 fL 79.4-94.8 MEAN CORPUSCULAR HEMOGLOBIN (BEAKER) (test 29.7 pg 25.6-32.2 lzam=802) MEAN CORPUSCULAR HEMOGLOBIN CONC (BEAKER) (test 31.1 GM/DL 32.2-35.5 grgl=394) RED CELL DISTRIBUTION WIDTH (BEAKER) (test 17.1 % 11.7-14.4 eeld=308) PLATELET COUNT (BEAKER) (test wyof=485) 188 K/CU MM 150-450 MEAN PLATELET VOLUME (BEAKER) (test oyfg=367) 13.1 fL 9.4-12.3 NUCLEATED RED BLOOD CELLS (BEAKER) (test 0 /100 WBC 0-0 bjfn=474) NEUTROPHILS RELATIVE PERCENT (BEAKER) (test 66 % csmp=059) LYMPHOCYTES RELATIVE PERCENT (BEAKER) (test 21 % trkt=521) MONOCYTES RELATIVE PERCENT (BEAKER) (test 8 % eekx=417) EOSINOPHILS RELATIVE PERCENT (BEAKER) (test 3 % ghpw=088) BASOPHILS RELATIVE PERCENT (BEAKER) (test 1 % bzcw=399) NEUTROPHILS ABSOLUTE COUNT (BEAKER) (test 4.31 K/ L 1.56-6.13 cbje=895) LYMPHOCYTES ABSOLUTE COUNT (BEAKER) (test 1.39 K/ L 1.18-3.74 qkwv=402) MONOCYTES ABSOLUTE COUNT (BEAKER) (test 0.55 K/ L 0.24-0.36 ituw=219) EOSINOPHILS ABSOLUTE COUNT (BEAKER) (test 0.19 K/ L 0.04-0.36 haja=104) BASOPHILS ABSOLUTE COUNT (BEAKER) (test 0.05 K/ L 0.01-0.08 tfft=739) IMMATURE GRANULOCYTES-RELATIVE PERCENT (BEAKER) 0 % 0-1 (test mglg=2638) POCT-GLUCOSE [id number] 22:04:00 Test Item Value Reference Range Comments POC-GLUCOSE METER (BEAKER) 114 mg/dL 70-110 TESTED AT [address] (test tuiz=2892) [place] [address] POCT-GLUCOSE [id number] 16:53:00 Test Item Value Reference Range Comments POC-GLUCOSE METER (BEAKER) 232 mg/dL 70-110 TESTED AT [address] (test bbvv=9775) [place] [address] POCT-GLUCOSE [id number] 12:27:00 Test Item Value Reference Range Comments POC-GLUCOSE METER (BEAKER) 121 mg/dL 70-110 TESTED AT [address] (test juhs=0432) [place] [address] POCT-GLUCOSE [id number] 09:12:00 Test Item Value Reference Range Comments POC-GLUCOSE METER (BEAKER) 94 mg/dL 70-110 TESTED AT [address] (test ljuv=4419) [place] [address] POCT-GLUCOSE [id number] 09:12:00 Test Item Value Reference Range Comments POC-GLUCOSE METER (BEAKER) 113 mg/dL 70-110 TESTED AT [address] (test hekv=1026) [place] [address] BASIC METABOLIC [id number] 06:44:00 Test Item Value Reference Range Comments SODIUM (BEAKER) (test 136 meq/L 136-145 feaw=048) POTASSIUM (BEAKER) (test 4.6 meq/L 3.5-5.1 mibw=600) CHLORIDE (BEAKER) (test 107 meq/L 98-107 yjmp=760) CO2 (BEAKER) (test 21 meq/L 22-29 nfsy=496) BLOOD UREA NITROGEN 37 mg/dL 7-21 (BEAKER) (test qvel=716) CREATININE (BEAKER) (test 2.80 mg/dL 0.57-1.25 jdsr=520) GLUCOSE RANDOM (BEAKER) 72 mg/dL 70-105 (test wwlg=387) CALCIUM (BEAKER) (test 8.7 mg/dL 8.4-10.2 zkib=177) EGFR (BEAKER) (test 17 mL/min/1.73 sq m ESTIMATED GFR IS NOT dvcf=3253) ACCURATE CREATININE CLEARANCE IN PREDICTING GLOMERULAR FILTRATION RATE. ESTIMATED GFR IS NOT APPLICABLE FOR DIALYSIS PATIENTS. [id number] 06:43:00 Test Item Value Reference Range Comments MAGNESIUM (BEAKER) (test uqod=708) 1.6 mg/dL 1.6-2.6 CBC W/PLT COUNT & AUTO [id number] 06:23:00 Test Item Value Reference Range Comments WHITE BLOOD CELL COUNT (BEAKER) (test tvyh=526) 7.1 K/ L 3.5-10.5 RED BLOOD CELL COUNT (BEAKER) (test wbyh=654) 2.99 M/ L 3.93-5.22 HEMOGLOBIN (BEAKER) (test upaw=263) 8.9 GM/DL 11.2-15.7 HEMATOCRIT (BEAKER) (test eaqo=969) 28.5 % 34.1-44.9 MEAN CORPUSCULAR VOLUME (BEAKER) (test ttip=405) 95.3 fL 79.4-94.8 MEAN CORPUSCULAR HEMOGLOBIN (BEAKER) (test 29.8 pg 25.6-32.2 tdny=363) MEAN CORPUSCULAR HEMOGLOBIN CONC (BEAKER) (test 31.2 GM/DL 32.2-35.5 nrbl=015) RED CELL DISTRIBUTION WIDTH (BEAKER) (test 16.8 % 11.7-14.4 bkno=188) PLATELET COUNT (BEAKER) (test ngys=896) 179 K/CU MM 150-450 MEAN PLATELET VOLUME (BEAKER) (test rsoe=513) 13.3 fL 9.4-12.3 NUCLEATED RED BLOOD CELLS (BEAKER) (test 0 /100 WBC 0-0 ahxk=537) NEUTROPHILS RELATIVE PERCENT (BEAKER) (test 67 % yiyl=614) LYMPHOCYTES RELATIVE PERCENT (BEAKER) (test 18 % wcgw=995) MONOCYTES RELATIVE PERCENT (BEAKER) (test 9 % ease=899) EOSINOPHILS RELATIVE PERCENT (BEAKER) (test 5 % nbta=540) BASOPHILS RELATIVE PERCENT (BEAKER) (test 1 % zjri=266) NEUTROPHILS ABSOLUTE COUNT (BEAKER) (test 4.70 K/ L 1.56-6.13 pmum=350) LYMPHOCYTES ABSOLUTE COUNT (BEAKER) (test 1.29 K/ L 1.18-3.74 kags=499) MONOCYTES ABSOLUTE COUNT (BEAKER) (test 0.66 K/ L 0.24-0.36 utyn=996) EOSINOPHILS ABSOLUTE COUNT (BEAKER) (test 0.33 K/ L 0.04-0.36 rxcu=896) BASOPHILS ABSOLUTE COUNT (BEAKER) (test 0.05 K/ L 0.01-0.08 jhbz=082) IMMATURE GRANULOCYTES-RELATIVE PERCENT (BEAKER) 0 % 0-1 (test wsjv=1168) POCT-GLUCOSE [id number] 21:00:00 Test Item Value Reference Range Comments POC-GLUCOSE METER (BEAKER) 157 mg/dL 70-110 TESTED AT [address] (test cjwt=3009) [facility] [address] POCT-GLUCOSE [id number] 17:12:00 Test Item Value Reference Range Comments POC-GLUCOSE METER (BEAKER) 138 mg/dL 70-110 TESTED AT [address] (test tmdl=8740) [place] [id number] POCT-GLUCOSE [id number] 13:13:00 Test Item Value Reference Range Comments POC-GLUCOSE METER (BEAKER) 137 mg/dL 70-110 TESTED AT [address] (test daoz=7923) [facility] [address] POCT-GLUCOSE [id number] 12:46:00 Test Item Value Reference Range Comments POC-GLUCOSE METER (BEAKER) 141 mg/dL 70-110 TESTED AT [address] (test bswx=5983) [facility] [address] POCT-GLUCOSE [id number] 08:25:00 Test Item Value Reference Range Comments POC-GLUCOSE METER (BEAKER) 118 mg/dL 70-110 TESTED AT [address] (test oxje=4718) [facility] [address] COMPREHENSIVE METABOLIC [id number] 07:48:00 Test Item Value Reference Range Comments TOTAL PROTEIN (BEAKER) 6.5 gm/dL 6.0-8.3 (test xeqx=514) ALBUMIN (BEAKER) (test 3.1 g/dL 3.5-5.0 zdxi=5096) ALKALINE PHOSPHATASE 134 U/L 40-150 (BEAKER) (test mbrc=492) BILIRUBIN TOTAL (BEAKER) 0.2 mg/dL 0.2-1.2 (test xlhl=031) SODIUM (BEAKER) (test 138 meq/L 136-145 uqgk=069) POTASSIUM (BEAKER) (test 4.1 meq/L 3.5-5.1 uyfu=968) CHLORIDE (BEAKER) (test 108 meq/L 98-107 yplv=331) CO2 (BEAKER) (test 21 meq/L 22-29 xshp=343) BLOOD UREA NITROGEN 38 mg/dL 7-21 (BEAKER) (test dwtf=858) CREATININE (BEAKER) (test 2.74 mg/dL 0.57-1.25 uofz=177) GLUCOSE RANDOM (BEAKER) 96 mg/dL 70-105 (test xpju=520) CALCIUM (BEAKER) (test 8.7 mg/dL 8.4-10.2 bvrj=914) AST (SGOT) (BEAKER) (test 11 U/L 5-34 vsxh=425) ALT (SGPT) (BEAKER) (test 11 U/L 6-55 wuve=187) EGFR (BEAKER) (test 17 mL/min/1.73 sq m ESTIMATED GFR IS NOT cyth=8773) ACCURATE CREATININE CLEARANCE IN PREDICTING GLOMERULAR FILTRATION RATE. ESTIMATED GFR IS NOT APPLICABLE FOR DIALYSIS PATIENTS. [id number] 07:42:00 Test Item Value Reference Range Comments PHOSPHORUS (BEAKER) (test aben=726) 3.8 mg/dL 2.3-4.7 [id number] 07:42:00 Test Item Value Reference Range Comments MAGNESIUM (BEAKER) (test jxci=824) 1.7 mg/dL 1.6-2.6 CBC W/PLT COUNT & AUTO [id number] 06:49:00 Test Item Value Reference Range Comments WHITE BLOOD CELL COUNT (BEAKER) (test iyfl=340) 7.0 K/ L 3.5-10.5 RED BLOOD CELL COUNT (BEAKER) (test lgew=993) 3.12 M/ L 3.93-5.22 HEMOGLOBIN (BEAKER) (test bfmb=716) 9.2 GM/DL 11.2-15.7 HEMATOCRIT (BEAKER) (test bxyp=486) 29.2 % 34.1-44.9 MEAN CORPUSCULAR VOLUME (BEAKER) (test twkm=855) 93.6 fL 79.4-94.8 MEAN CORPUSCULAR HEMOGLOBIN (BEAKER) (test 29.5 pg 25.6-32.2 fjlx=817) MEAN CORPUSCULAR HEMOGLOBIN CONC (BEAKER) (test 31.5 GM/DL 32.2-35.5 wqty=572) RED CELL DISTRIBUTION WIDTH (BEAKER) (test 17.2 % 11.7-14.4 ionb=655) PLATELET COUNT (BEAKER) (test klen=784) 191 K/CU MM 150-450 MEAN PLATELET VOLUME (BEAKER) (test dkbj=296) 12.9 fL 9.4-12.3 NUCLEATED RED BLOOD CELLS (BEAKER) (test 0 /100 WBC 0-0 jvaa=827) NEUTROPHILS RELATIVE PERCENT (BEAKER) (test 62 % xlpa=461) LYMPHOCYTES RELATIVE PERCENT (BEAKER) (test 24 % jfka=673) MONOCYTES RELATIVE PERCENT (BEAKER) (test 9 % vqho=883) EOSINOPHILS RELATIVE PERCENT (BEAKER) (test 4 % pzzo=615) BASOPHILS RELATIVE PERCENT (BEAKER) (test 1 % zapw=786) NEUTROPHILS ABSOLUTE COUNT (BEAKER) (test 4.31 K/ L 1.56-6.13 cqkg=305) LYMPHOCYTES ABSOLUTE COUNT (BEAKER) (test 1.68 K/ L 1.18-3.74 ehza=422) MONOCYTES ABSOLUTE COUNT (BEAKER) (test 0.59 K/ L 0.24-0.36 geem=563) EOSINOPHILS ABSOLUTE COUNT (BEAKER) (test 0.30 K/ L 0.04-0.36 mrju=461) BASOPHILS ABSOLUTE COUNT (BEAKER) (test 0.06 K/ L 0.01-0.08 yhuy=331) IMMATURE GRANULOCYTES-RELATIVE PERCENT (BEAKER) 0 % 0-1 (test ajnb=3027) CALCIUM, [id number] 06:48:00 Test Item Value Reference Range Comments CALCIUM IONIZED (BEAKER) (test awen=712) 1.11 mmol/L 1.12-1.27 PH, BLOOD (BEAKER) (test uwhg=7597) 7.37 POCT-GLUCOSE [id number] 20:29:00 Test Item Value Reference Range Comments POC-GLUCOSE METER (BEAKER) 171 mg/dL 70-110 TESTED AT [address] (test nzua=8658) [place] [id number] POCT-GLUCOSE [id number] 17:26:00 Test Item Value Reference Range Comments POC-GLUCOSE METER (BEAKER) 281 mg/dL 70-110 TESTED AT [address] (test jwrn=6076) [place] [id number] POCT-GLUCOSE [id number] 12:16:00 Test Item Value Reference Range Comments POC-GLUCOSE METER (BEAKER) 118 mg/dL 70-110 TESTED AT [address] (test zppa=8600) [place] [address] SURGICALLY OBTAINED CULTURE + GRAM [id number] 09:26:00 Test Item Value Reference Range Comments CULTURE (BEAKER) (test 1+ Escherichia coli fvsf=5298) GRAM STAIN RESULT <1+ White blood cells (BEAKER) (test seen rjmb=6592) GRAM STAIN RESULT No organisms seen (BEAKER) (test uqsj=777412) SURGICALLY OBTAINED CULTURE + GRAM [id number] 09:22:00 Test Item Value Reference Range Comments CULTURE (BEAKER) (test COAGULASE NEGATIVE 1+ Coagulase negative ojom=0701) STAPHYLOCOCCUS Staphylococcus Clindamycin (test code=10) Erythromycin (test code=4) Linezolid (test code=40) Nitrofurantoin (test code=23) Oxacillin (test code=14) Rifampin (test code=43) Tetracycline (test code=2) Trimethoprim + Sulfamethoxazole (test code=47) Vancomycin (test code=13) CULTURE (BEAKER) (test 1+ Enterococcus szka=1740) species CULTURE (BEAKER) (test ENTEROCOCCUS SPECIES 1+ Vancomycin nojp=4862) resistant Enterococcus species Ampicillin (test code=26) Linezolid (test code=40) Tetracycline (test code=2) Vancomycin (test code=13) GRAM STAIN RESULT 2+ White blood cells (BEAKER) (test kvuc=8918) seen GRAM STAIN RESULT No organisms seen (BEAKER) (test jhhc=219422) BASIC METABOLIC [id number] 09:18:00 Test Item Value Reference Range Comments SODIUM (BEAKER) (test 140 meq/L 136-145 ytyi=287) POTASSIUM (BEAKER) (test 4.1 meq/L 3.5-5.1 vgbm=983) CHLORIDE (BEAKER) (test 108 meq/L 98-107 vgtm=257) CO2 (BEAKER) (test 21 meq/L 22-29 gkjc=071) BLOOD UREA NITROGEN 44 mg/dL 7-21 (BEAKER) (test vmqm=013) CREATININE (BEAKER) (test 3.12 mg/dL 0.57-1.25 pbmt=938) GLUCOSE RANDOM (BEAKER) 162 mg/dL 70-105 (test abzo=290) CALCIUM (BEAKER) (test 8.8 mg/dL 8.4-10.2 lciu=809) EGFR (BEAKER) (test 15 mL/min/1.73 sq m ESTIMATED GFR IS NOT cmpd=8608) ACCURATE CREATININE CLEARANCE IN PREDICTING GLOMERULAR FILTRATION RATE. ESTIMATED GFR IS NOT APPLICABLE FOR DIALYSIS PATIENTS. [id number] 09:12:00 Test Item Value Reference Range Comments MAGNESIUM (BEAKER) (test cpmm=626) 1.8 mg/dL 1.6-2.6 POCT-GLUCOSE [id number] 07:42:00 Test Item Value Reference Range Comments POC-GLUCOSE METER (BEAKER) 174 mg/dL 70-110 TESTED AT [address] (test exjf=7340) [facility] [address] CBC W/PLT COUNT & AUTO [id number] 07:23:00 Test Item Value Reference Range Comments WHITE BLOOD CELL COUNT (BEAKER) (test yvpj=750) 7.5 K/ L 3.5-10.5 RED BLOOD CELL COUNT (BEAKER) (test snwg=856) 3.21 M/ L 3.93-5.22 HEMOGLOBIN (BEAKER) (test lddf=260) 9.4 GM/DL 11.2-15.7 HEMATOCRIT (BEAKER) (test tcrb=896) 29.9 % 34.1-44.9 MEAN CORPUSCULAR VOLUME (BEAKER) (test klbe=210) 93.1 fL 79.4-94.8 MEAN CORPUSCULAR HEMOGLOBIN (BEAKER) (test 29.3 pg 25.6-32.2 kflj=296) MEAN CORPUSCULAR HEMOGLOBIN CONC (BEAKER) (test 31.4 GM/DL 32.2-35.5 fcow=669) RED CELL DISTRIBUTION WIDTH (BEAKER) (test 17.3 % 11.7-14.4 uekm=917) PLATELET COUNT (BEAKER) (test tmye=752) 205 K/CU MM 150-450 MEAN PLATELET VOLUME (BEAKER) (test jjzo=181) 13.4 fL 9.4-12.3 NUCLEATED RED BLOOD CELLS (BEAKER) (test 0 /100 WBC 0-0 hnta=139) NEUTROPHILS RELATIVE PERCENT (BEAKER) (test 74 % ayqa=998) LYMPHOCYTES RELATIVE PERCENT (BEAKER) (test 14 % efkd=502) MONOCYTES RELATIVE PERCENT (BEAKER) (test 7 % ojnz=382) EOSINOPHILS RELATIVE PERCENT (BEAKER) (test 3 % umld=740) BASOPHILS RELATIVE PERCENT (BEAKER) (test 1 % ctqy=665) NEUTROPHILS ABSOLUTE COUNT (BEAKER) (test 5.56 K/ L 1.56-6.13 zwal=356) LYMPHOCYTES ABSOLUTE COUNT (BEAKER) (test 1.08 K/ L 1.18-3.74 jvco=721) MONOCYTES ABSOLUTE COUNT (BEAKER) (test 0.53 K/ L 0.24-0.36 ykpb=792) EOSINOPHILS ABSOLUTE COUNT (BEAKER) (test 0.25 K/ L 0.04-0.36 vdru=270) BASOPHILS ABSOLUTE COUNT (BEAKER) (test 0.05 K/ L 0.01-0.08 mzwt=225) IMMATURE GRANULOCYTES-RELATIVE PERCENT (BEAKER) 0 % 0-1 (test skls=5648) POCT-GLUCOSE [id number] 21:10:00 Test Item Value Reference Range Comments POC-GLUCOSE METER (BEAKER) 183 mg/dL 70-110 TESTED AT [address] (test jtbz=9765) [place] [id number] POCT-GLUCOSE [id number] 18:32:00 Test Item Value Reference Range Comments POC-GLUCOSE METER (BEAKER) 116 mg/dL 70-110 TESTED AT [address] (test elhw=8040) [place] [id number] POCT-GLUCOSE [id number] 13:22:00 Test Item Value Reference Range Comments POC-GLUCOSE METER (BEAKER) 151 mg/dL 70-110 TESTED AT [place] [address] [facility] (test uwod=7143) [facility] [address] POCT-GLUCOSE [id number] 10:11:00 Test Item Value Reference Range Comments POC-GLUCOSE METER (BEAKER) 133 mg/dL 70-110 TESTED AT [facility] [address] [facility] (test tvvf=2363) [facility] [address] SURGICALLY OBTAINED CULTURE + GRAM [id number] 10:02:00 Test Item Value Reference Range Comments CULTURE (BEAKER) <1+ Same organism has been (test hyvt=0793) isolated from cultures(s) of the same body site and collection date. Repeat identification and susceptibility testing performed only after consultation with the clinical microbiology laboratory.Vancomycin resistant Enterococcus species GRAM STAIN RESULT <1+ White blood cells (BEAKER) (test seen rnyq=8565) GRAM STAIN RESULT No organisms seen (BEAKER) (test iawg=619670) BASIC METABOLIC [id number] 07:36:00 Test Item Value Reference Range Comments SODIUM (BEAKER) (test 145 meq/L 136-145 ixkg=194) POTASSIUM (BEAKER) (test 3.6 meq/L 3.5-5.1 gvnl=583) CHLORIDE (BEAKER) (test 111 meq/L 98-107 fsnf=676) CO2 (BEAKER) (test 21 meq/L 22-29 mhej=645) BLOOD UREA NITROGEN 37 mg/dL 7-21 (BEAKER) (test tqfj=614) CREATININE (BEAKER) (test 2.51 mg/dL 0.57-1.25 sakz=063) GLUCOSE RANDOM (BEAKER) 89 mg/dL 70-105 (test qqlr=524) CALCIUM (BEAKER) (test 7.8 mg/dL 8.4-10.2 vfdk=041) EGFR (BEAKER) (test 19 mL/min/1.73 sq m ESTIMATED GFR IS NOT xynl=8712) ACCURATE CREATININE CLEARANCE IN PREDICTING GLOMERULAR FILTRATION RATE. ESTIMATED GFR IS NOT APPLICABLE FOR DIALYSIS PATIENTS. [id number] 07:35:00 Test Item Value Reference Range Comments MAGNESIUM (BEAKER) (test nmqy=045) 1.7 mg/dL 1.6-2.6 CBC W/PLT COUNT & AUTO [id number] 06:59:00 Test Item Value Reference Range Comments WHITE BLOOD CELL COUNT (BEAKER) (test enqw=754) 5.8 K/ L 3.5-10.5 RED BLOOD CELL COUNT (BEAKER) (test jbyw=306) 2.74 M/ L 3.93-5.22 HEMOGLOBIN (BEAKER) (test dtqt=302) 8.1 GM/DL 11.2-15.7 HEMATOCRIT (BEAKER) (test wgyu=205) 25.6 % 34.1-44.9 MEAN CORPUSCULAR VOLUME (BEAKER) (test fauo=355) 93.4 fL 79.4-94.8 MEAN CORPUSCULAR HEMOGLOBIN (BEAKER) (test 29.6 pg 25.6-32.2 zlkr=009) MEAN CORPUSCULAR HEMOGLOBIN CONC (BEAKER) (test 31.6 GM/DL 32.2-35.5 ybrj=238) RED CELL DISTRIBUTION WIDTH (BEAKER) (test 17.7 % 11.7-14.4 aqku=523) PLATELET COUNT (BEAKER) (test jihb=195) 174 K/CU MM 150-450 MEAN PLATELET VOLUME (BEAKER) (test miak=221) 13.0 fL 9.4-12.3 NUCLEATED RED BLOOD CELLS (BEAKER) (test 0 /100 WBC 0-0 vbkf=156) NEUTROPHILS RELATIVE PERCENT (BEAKER) (test 65 % elyt=318) LYMPHOCYTES RELATIVE PERCENT (BEAKER) (test 18 % iico=936) MONOCYTES RELATIVE PERCENT (BEAKER) (test 10 % zfin=754) EOSINOPHILS RELATIVE PERCENT (BEAKER) (test 5 % ihgd=963) BASOPHILS RELATIVE PERCENT (BEAKER) (test 1 % taoo=872) NEUTROPHILS ABSOLUTE COUNT (BEAKER) (test 3.73 K/ L 1.56-6.13 npai=051) LYMPHOCYTES ABSOLUTE COUNT (BEAKER) (test 1.05 K/ L 1.18-3.74 zluz=685) MONOCYTES ABSOLUTE COUNT (BEAKER) (test 0.58 K/ L 0.24-0.36 yxpz=402) EOSINOPHILS ABSOLUTE COUNT (BEAKER) (test 0.29 K/ L 0.04-0.36 yaok=199) BASOPHILS ABSOLUTE COUNT (BEAKER) (test 0.06 K/ L 0.01-0.08 qemh=307) IMMATURE GRANULOCYTES-RELATIVE PERCENT (BEAKER) 1 % 0-1 (test wmuy=9894) ANAEROBIC [id number] 04:29:00 Test Item Value Reference Range Comments CULTURE (BEAKER) (test rdqw=2910) No anaerobes isolated ANAEROBIC [id number] 04:29:00 Test Item Value Reference Range Comments CULTURE (BEAKER) (test bojq=0430) No anaerobes isolated ANAEROBIC [id number] 04:29:00 Test Item Value Reference Range Comments CULTURE (BEAKER) (test asnh=4039) No anaerobes isolated POCT-GLUCOSE [id number] 21:20:00 Test Item Value Reference Range Comments POC-GLUCOSE METER (BEAKER) 122 mg/dL 70-110 TESTED AT [address] (test qinl=6060) [facility] [address] POCT-GLUCOSE [id number] 17:29:00 Test Item Value Reference Range Comments POC-GLUCOSE METER (BEAKER) 173 mg/dL 70-110 TESTED AT [address] (test vjhx=1237) [facility] [address] POCT-GLUCOSE [id number] 12:15:00 Test Item Value Reference Range Comments POC-GLUCOSE METER (BEAKER) 125 mg/dL 70-110 TESTED AT [address] (test wkhy=5007) [facility] [address] POCT-GLUCOSE [id number] 12:12:00 Test Item Value Reference Range Comments POC-GLUCOSE METER (BEAKER) 94 mg/dL 70-110 TESTED AT [address] (test hzba=0766) [facility] [address] BASIC METABOLIC [id number] 06:42:00 Test Item Value Reference Range Comments SODIUM (BEAKER) (test 140 meq/L 136-145 vixg=585) POTASSIUM (BEAKER) (test 4.3 meq/L 3.5-5.1 wbso=177) CHLORIDE (BEAKER) (test 111 meq/L 98-107 jsdy=396) CO2 (BEAKER) (test 22 meq/L 22-29 fkhb=668) BLOOD UREA NITROGEN 44 mg/dL 7-21 (BEAKER) (test wtym=032) CREATININE (BEAKER) (test 2.81 mg/dL 0.57-1.25 vcgh=921) GLUCOSE RANDOM (BEAKER) 78 mg/dL 70-105 (test cxhh=798) CALCIUM (BEAKER) (test 8.3 mg/dL 8.4-10.2 auaj=916) EGFR (BEAKER) (test 17 mL/min/1.73 sq m ESTIMATED GFR IS NOT txyo=5122) ACCURATE CREATININE CLEARANCE IN PREDICTING GLOMERULAR FILTRATION RATE. ESTIMATED GFR IS NOT APPLICABLE FOR DIALYSIS PATIENTS. [id number] 06:38:00 Test Item Value Reference Range Comments MAGNESIUM (BEAKER) (test njno=683) 1.9 mg/dL 1.6-2.6 CBC W/PLT COUNT & AUTO [id number] 06:32:00 Test Item Value Reference Range Comments WHITE BLOOD CELL COUNT (BEAKER) (test yrdb=897) 5.3 K/ L 3.5-10.5 RED BLOOD CELL COUNT (BEAKER) (test jkqy=885) 2.21 M/ L 3.93-5.22 HEMOGLOBIN (BEAKER) (test zyjw=934) 6.5 GM/DL 11.2-15.7 HEMATOCRIT (BEAKER) (test qhad=477) 21.4 % 34.1-44.9 MEAN CORPUSCULAR VOLUME (BEAKER) (test sgzx=579) 96.8 fL 79.4-94.8 MEAN CORPUSCULAR HEMOGLOBIN (BEAKER) (test 29.4 pg 25.6-32.2 mdqs=411) MEAN CORPUSCULAR HEMOGLOBIN CONC (BEAKER) (test 30.4 GM/DL 32.2-35.5 txgj=605) RED CELL DISTRIBUTION WIDTH (BEAKER) (test 17.2 % 11.7-14.4 jbrv=080) PLATELET COUNT (BEAKER) (test lqoj=885) 185 K/CU MM 150-450 MEAN PLATELET VOLUME (BEAKER) (test btjp=639) 12.6 fL 9.4-12.3 NUCLEATED RED BLOOD CELLS (BEAKER) (test 0 /100 WBC 0-0 kvoc=386) NEUTROPHILS RELATIVE PERCENT (BEAKER) (test 58 % obno=213) LYMPHOCYTES RELATIVE PERCENT (BEAKER) (test 26 % cwxd=796) MONOCYTES RELATIVE PERCENT (BEAKER) (test 9 % xujc=389) EOSINOPHILS RELATIVE PERCENT (BEAKER) (test 6 % afxw=179) BASOPHILS RELATIVE PERCENT (BEAKER) (test 1 % nduu=397) NEUTROPHILS ABSOLUTE COUNT (BEAKER) (test 3.11 K/ L 1.56-6.13 csvu=570) LYMPHOCYTES ABSOLUTE COUNT (BEAKER) (test 1.36 K/ L 1.18-3.74 kxmh=708) MONOCYTES ABSOLUTE COUNT (BEAKER) (test 0.46 K/ L 0.24-0.36 rsgg=898) EOSINOPHILS ABSOLUTE COUNT (BEAKER) (test 0.33 K/ L 0.04-0.36 ypce=312) BASOPHILS ABSOLUTE COUNT (BEAKER) (test 0.06 K/ L 0.01-0.08 qsuf=607) IMMATURE GRANULOCYTES-RELATIVE PERCENT (BEAKER) 0 % 0-1 (test jkqr=2530) POCT-GLUCOSE [id number] 21:56:00 Test Item Value Reference Range Comments POC-GLUCOSE METER (BEAKER) 105 mg/dL 70-110 TESTED AT [address] (test kcqg=8198) [facility] [address] POCT-GLUCOSE [id number] 12:36:00 Test Item Value Reference Range Comments POC-GLUCOSE METER (BEAKER) 85 mg/dL 70-110 TESTED AT [address] (test ctgj=0300) [facility] [address] POCT-GLUCOSE [id number] 07:51:00 Test Item Value Reference Range Comments POC-GLUCOSE METER (BEAKER) 91 mg/dL 70-110 TESTED AT [address] (test lkht=8653) [facility] [address] BASIC METABOLIC [id number] 07:08:00 Test Item Value Reference Range Comments SODIUM (BEAKER) (test 138 meq/L 136-145 ndby=663) POTASSIUM (BEAKER) (test 5.1 meq/L 3.5-5.1 rfrh=521) CHLORIDE (BEAKER) (test 108 meq/L 98-107 ogzw=932) CO2 (BEAKER) (test 22 meq/L 22-29 zfhq=795) BLOOD UREA NITROGEN 48 mg/dL 7-21 (BEAKER) (test rhdh=829) CREATININE (BEAKER) (test 2.83 mg/dL 0.57-1.25 stbt=761) GLUCOSE RANDOM (BEAKER) 70 mg/dL 70-105 (test rrho=229) CALCIUM (BEAKER) (test 8.6 mg/dL 8.4-10.2 cmoe=842) EGFR (BEAKER) (test 17 mL/min/1.73 sq m ESTIMATED GFR IS NOT sryl=6228) ACCURATE CREATININE CLEARANCE IN PREDICTING GLOMERULAR FILTRATION RATE. ESTIMATED GFR IS NOT APPLICABLE FOR DIALYSIS PATIENTS. [id number] 07:05:00 Test Item Value Reference Range Comments MAGNESIUM (BEAKER) (test ssmw=473) 1.9 mg/dL 1.6-2.6 CBC W/PLT COUNT & AUTO [id number] 06:56:00 Test Item Value Reference Range Comments WHITE BLOOD CELL COUNT (BEAKER) (test xrdz=884) 5.7 K/ L 3.5-10.5 RED BLOOD CELL COUNT (BEAKER) (test oywk=135) 2.39 M/ L 3.93-5.22 HEMOGLOBIN (BEAKER) (test guek=729) 7.1 GM/DL 11.2-15.7 HEMATOCRIT (BEAKER) (test oxjg=135) 22.9 % 34.1-44.9 MEAN CORPUSCULAR VOLUME (BEAKER) (test wrjg=687) 95.8 fL 79.4-94.8 MEAN CORPUSCULAR HEMOGLOBIN (BEAKER) (test 29.7 pg 25.6-32.2 vvih=852) MEAN CORPUSCULAR HEMOGLOBIN CONC (BEAKER) (test 31.0 GM/DL 32.2-35.5 boze=685) RED CELL DISTRIBUTION WIDTH (BEAKER) (test 17.2 % 11.7-14.4 bban=064) PLATELET COUNT (BEAKER) (test osgz=729) 204 K/CU MM 150-450 MEAN PLATELET VOLUME (BEAKER) (test pxdg=125) 13.4 fL 9.4-12.3 NUCLEATED RED BLOOD CELLS (BEAKER) (test 0 /100 WBC 0-0 mxav=776) NEUTROPHILS RELATIVE PERCENT (BEAKER) (test 57 % fiwf=300) LYMPHOCYTES RELATIVE PERCENT (BEAKER) (test 26 % byyb=306) MONOCYTES RELATIVE PERCENT (BEAKER) (test 9 % oesm=457) EOSINOPHILS RELATIVE PERCENT (BEAKER) (test 7 % hybx=676) BASOPHILS RELATIVE PERCENT (BEAKER) (test 1 % qirs=651) NEUTROPHILS ABSOLUTE COUNT (BEAKER) (test 3.22 K/ L 1.56-6.13 hxci=587) LYMPHOCYTES ABSOLUTE COUNT (BEAKER) (test 1.46 K/ L 1.18-3.74 ysde=810) MONOCYTES ABSOLUTE COUNT (BEAKER) (test 0.53 K/ L 0.24-0.36 kmyv=394) EOSINOPHILS ABSOLUTE COUNT (BEAKER) (test 0.40 K/ L 0.04-0.36 jbgy=262) BASOPHILS ABSOLUTE COUNT (BEAKER) (test 0.06 K/ L 0.01-0.08 nzag=002) IMMATURE GRANULOCYTES-RELATIVE PERCENT (BEAKER) 0 % 0-1 (test yibx=7910) POCT-GLUCOSE [id number] 20:37:00 Test Item Value Reference Range Comments POC-GLUCOSE METER (BEAKER) 146 mg/dL 70-110 TESTED AT [address] (test csci=6226) [place] [address] POCT-GLUCOSE [id number] 17:33:00 Test Item Value Reference Range Comments POC-GLUCOSE METER (BEAKER) 169 mg/dL 70-110 TESTED AT [address] (test csyo=4395) [place] [id number] POCT-GLUCOSE [id number] 12:31:00 Test Item Value Reference Range Comments POC-GLUCOSE METER (BEAKER) 176 mg/dL 70-110 TESTED AT [address] (test lury=0246) [place] [id number] POCT-GLUCOSE [id number] 07:33:00 Test Item Value Reference Range Comments POC-GLUCOSE METER (BEAKER) 139 mg/dL 70-110 TESTED AT [address] (test xacr=3483) [place] [address] CBC W/PLT COUNT & AUTO [id number] 07:18:00 Test Item Value Reference Range Comments WHITE BLOOD CELL COUNT (BEAKER) (test zdoz=461) 6.0 K/ L 3.5-10.5 RED BLOOD CELL COUNT (BEAKER) (test qyzv=222) 2.26 M/ L 3.93-5.22 HEMOGLOBIN (BEAKER) (test svmz=352) 6.9 GM/DL 11.2-15.7 HEMATOCRIT (BEAKER) (test nnrg=221) 21.6 % 34.1-44.9 MEAN CORPUSCULAR VOLUME (BEAKER) (test uxrg=501) 95.6 fL 79.4-94.8 MEAN CORPUSCULAR HEMOGLOBIN (BEAKER) (test 30.5 pg 25.6-32.2 mruc=429) MEAN CORPUSCULAR HEMOGLOBIN CONC (BEAKER) (test 31.9 GM/DL 32.2-35.5 jbnm=403) RED CELL DISTRIBUTION WIDTH (BEAKER) (test 17.2 % 11.7-14.4 uvcd=528) PLATELET COUNT (BEAKER) (test mnjz=794) 191 K/CU MM 150-450 MEAN PLATELET VOLUME (BEAKER) (test oqdb=388) 12.8 fL 9.4-12.3 NUCLEATED RED BLOOD CELLS (BEAKER) (test 0 /100 WBC 0-0 qocv=347) NEUTROPHILS RELATIVE PERCENT (BEAKER) (test 66 % jdkw=755) LYMPHOCYTES RELATIVE PERCENT (BEAKER) (test 21 % omny=406) MONOCYTES RELATIVE PERCENT (BEAKER) (test 8 % nrst=772) EOSINOPHILS RELATIVE PERCENT (BEAKER) (test 4 % omqg=647) BASOPHILS RELATIVE PERCENT (BEAKER) (test 1 % dahz=860) NEUTROPHILS ABSOLUTE COUNT (BEAKER) (test 3.93 K/ L 1.56-6.13 sppg=888) LYMPHOCYTES ABSOLUTE COUNT (BEAKER) (test 1.23 K/ L 1.18-3.74 hfpg=601) MONOCYTES ABSOLUTE COUNT (BEAKER) (test 0.47 K/ L 0.24-0.36 rkdz=907) EOSINOPHILS ABSOLUTE COUNT (BEAKER) (test 0.26 K/ L 0.04-0.36 qnwx=112) BASOPHILS ABSOLUTE COUNT (BEAKER) (test 0.05 K/ L 0.01-0.08 dgwh=824) IMMATURE GRANULOCYTES-RELATIVE PERCENT (BEAKER) 1 % 0-1 (test vird=6892) BASIC METABOLIC [id number] 07:17:00 Test Item Value Reference Range Comments SODIUM (BEAKER) (test 138 meq/L 136-145 qpol=107) POTASSIUM (BEAKER) (test 4.3 meq/L 3.5-5.1 uxvc=446) CHLORIDE (BEAKER) (test 111 meq/L 98-107 mkfx=222) CO2 (BEAKER) (test 21 meq/L 22-29 xujp=371) BLOOD UREA NITROGEN 45 mg/dL 7-21 (BEAKER) (test fzwc=046) CREATININE (BEAKER) (test 2.67 mg/dL 0.57-1.25 qlvy=996) GLUCOSE RANDOM (BEAKER) 115 mg/dL 70-105 (test hmpj=024) CALCIUM (BEAKER) (test 7.9 mg/dL 8.4-10.2 hqdp=948) EGFR (BEAKER) (test 18 mL/min/1.73 sq m ESTIMATED GFR IS NOT txuz=1932) ACCURATE CREATININE CLEARANCE IN PREDICTING GLOMERULAR FILTRATION RATE. ESTIMATED GFR IS NOT APPLICABLE FOR DIALYSIS PATIENTS. [id number] 07:15:00 Test Item Value Reference Range Comments MAGNESIUM (BEAKER) (test ocah=257) 1.7 mg/dL 1.6-2.6 HEMOGLOBIN AND [id number] 06:50:00 Test Item Value Reference Range Comments HEMOGLOBIN (BEAKER) (test aczn=590) 7.0 GM/DL 11.2-15.7 HEMATOCRIT (BEAKER) (test qpbm=830) 22.3 % 34.1-44.9 POCT-GLUCOSE [id number] 21:04:00 Test Item Value Reference Range Comments POC-GLUCOSE METER (BEAKER) 196 mg/dL 70-110 TESTED AT [address] (test prwk=3010) [place] [address] POCT-GLUCOSE [id number] 17:34:00 Test Item Value Reference Range Comments POC-GLUCOSE METER (BEAKER) 114 mg/dL 70-110 TESTED AT [address] (test uzxg=6133) [place] [id number] POCT-GLUCOSE [id number] 13:54:00 Test Item Value Reference Range Comments POC-GLUCOSE METER (BEAKER) 145 mg/dL 70-110 TESTED AT [address] (test mmzk=8083) [place] [address] POCT-GLUCOSE [id number] 08:05:00 Test Item Value Reference Range Comments POC-GLUCOSE METER (BEAKER) 128 mg/dL 70-110 TESTED AT [address] (test skox=4590) [facility] [address] BASIC METABOLIC [id number] 05:53:00 Test Item Value Reference Range Comments SODIUM (BEAKER) (test 135 meq/L 136-145 vnke=461) POTASSIUM (BEAKER) (test 4.8 meq/L 3.5-5.1 gzzh=950) CHLORIDE (BEAKER) (test 104 meq/L 98-107 amsy=486) CO2 (BEAKER) (test 22 meq/L 22-29 jgoj=045) BLOOD UREA NITROGEN 56 mg/dL 7-21 (BEAKER) (test gqcb=877) CREATININE (BEAKER) (test 3.23 mg/dL 0.57-1.25 fmmw=217) GLUCOSE RANDOM (BEAKER) 114 mg/dL 70-105 (test emay=671) CALCIUM (BEAKER) (test 8.8 mg/dL 8.4-10.2 oqpa=653) EGFR (BEAKER) (test 14 mL/min/1.73 sq m ESTIMATED GFR IS NOT negm=2198) ACCURATE CREATININE CLEARANCE IN PREDICTING GLOMERULAR FILTRATION RATE. ESTIMATED GFR IS NOT APPLICABLE FOR DIALYSIS PATIENTS. [id number] 05:50:00 Test Item Value Reference Range Comments MAGNESIUM (BEAKER) (test zbub=601) 2.1 mg/dL 1.6-2.6 CBC W/PLT COUNT & AUTO [id number] 05:16:00 Test Item Value Reference Range Comments WHITE BLOOD CELL COUNT (BEAKER) (test slub=433) 6.1 K/ L 3.5-10.5 RED BLOOD CELL COUNT (BEAKER) (test pjvi=240) 2.57 M/ L 3.93-5.22 HEMOGLOBIN (BEAKER) (test aees=599) 7.6 GM/DL 11.2-15.7 HEMATOCRIT (BEAKER) (test iiep=715) 24.2 % 34.1-44.9 MEAN CORPUSCULAR VOLUME (BEAKER) (test dhqx=544) 94.2 fL 79.4-94.8 MEAN CORPUSCULAR HEMOGLOBIN (BEAKER) (test 29.6 pg 25.6-32.2 wjxs=958) MEAN CORPUSCULAR HEMOGLOBIN CONC (BEAKER) (test 31.4 GM/DL 32.2-35.5 vgkm=136) RED CELL DISTRIBUTION WIDTH (BEAKER) (test 17.1 % 11.7-14.4 qcue=834) PLATELET COUNT (BEAKER) (test moqd=925) 204 K/CU MM 150-450 MEAN PLATELET VOLUME (BEAKER) (test nbix=999) 13.0 fL 9.4-12.3 NUCLEATED RED BLOOD CELLS (BEAKER) (test 0 /100 WBC 0-0 eycw=779) NEUTROPHILS RELATIVE PERCENT (BEAKER) (test 63 % nsfo=151) LYMPHOCYTES RELATIVE PERCENT (BEAKER) (test 23 % mtax=272) MONOCYTES RELATIVE PERCENT (BEAKER) (test 9 % onpp=704) EOSINOPHILS RELATIVE PERCENT (BEAKER) (test 5 % dobv=875) BASOPHILS RELATIVE PERCENT (BEAKER) (test 1 % bxtp=384) NEUTROPHILS ABSOLUTE COUNT (BEAKER) (test 3.79 K/ L 1.56-6.13 rewo=161) LYMPHOCYTES ABSOLUTE COUNT (BEAKER) (test 1.40 K/ L 1.18-3.74 mtvx=809) MONOCYTES ABSOLUTE COUNT (BEAKER) (test 0.52 K/ L 0.24-0.36 klzl=719) EOSINOPHILS ABSOLUTE COUNT (BEAKER) (test 0.27 K/ L 0.04-0.36 cpzp=577) BASOPHILS ABSOLUTE COUNT (BEAKER) (test 0.05 K/ L 0.01-0.08 uvgk=644) IMMATURE GRANULOCYTES-RELATIVE PERCENT (BEAKER) 1 % 0-1 (test dpfu=3371) POCT-GLUCOSE [id number] 21:00:00 Test Item Value Reference Range Comments POC-GLUCOSE METER (BEAKER) 316 mg/dL 70-110 Notified SAMAN HERNANDEZ/TESTED AT [facility] (test otiw=1193) [address] [place] [address] POCT-GLUCOSE [id number] 18:59:00 Test Item Value Reference Range Comments POC-GLUCOSE METER (BEAKER) 187 mg/dL 70-110 TESTED AT [address] (test uqyn=5041) [place] [id number] POCT-GLUCOSE [id number] 11:25:00 Test Item Value Reference Range Comments POC-GLUCOSE METER (BEAKER) 104 mg/dL 70-110 TESTED AT [address] (test alqx=6988) [place] [address] POCT-GLUCOSE [id number] 07:42:00 Test Item Value Reference Range Comments POC-GLUCOSE METER (BEAKER) 169 mg/dL 70-110 TESTED AT [address] (test ulbt=8075) [place] [address] BASIC METABOLIC [id number] 07:04:00 Test Item Value Reference Range Comments SODIUM (BEAKER) (test 135 meq/L 136-145 bsia=659) POTASSIUM (BEAKER) (test 4.6 meq/L 3.5-5.1 vrbq=635) CHLORIDE (BEAKER) (test 104 meq/L 98-107 futh=049) CO2 (BEAKER) (test 22 meq/L 22-29 plhk=052) BLOOD UREA NITROGEN 56 mg/dL 7-21 (BEAKER) (test jtpk=484) CREATININE (BEAKER) (test 3.28 mg/dL 0.57-1.25 xbxp=751) GLUCOSE RANDOM (BEAKER) 141 mg/dL 70-105 (test sfrc=665) CALCIUM (BEAKER) (test 8.8 mg/dL 8.4-10.2 mdjx=510) EGFR (BEAKER) (test 14 mL/min/1.73 sq m ESTIMATED GFR IS NOT nbxb=4871) ACCURATE CREATININE CLEARANCE IN PREDICTING GLOMERULAR FILTRATION RATE. ESTIMATED GFR IS NOT APPLICABLE FOR DIALYSIS PATIENTS. [id number] 06:36:00 Test Item Value Reference Range Comments MAGNESIUM (BEAKER) (test zhgv=088) 2.0 mg/dL 1.6-2.6 CBC W/PLT COUNT & AUTO [id number] 05:40:00 Test Item Value Reference Range Comments WHITE BLOOD CELL COUNT (BEAKER) (test anyx=204) 6.0 K/ L 3.5-10.5 RED BLOOD CELL COUNT (BEAKER) (test imlh=795) 2.57 M/ L 3.93-5.22 HEMOGLOBIN (BEAKER) (test ghpq=191) 7.6 GM/DL 11.2-15.7 HEMATOCRIT (BEAKER) (test huqg=715) 24.4 % 34.1-44.9 MEAN CORPUSCULAR VOLUME (BEAKER) (test ckds=721) 94.9 fL 79.4-94.8 MEAN CORPUSCULAR HEMOGLOBIN (BEAKER) (test 29.6 pg 25.6-32.2 ytbb=559) MEAN CORPUSCULAR HEMOGLOBIN CONC (BEAKER) (test 31.1 GM/DL 32.2-35.5 lcra=660) RED CELL DISTRIBUTION WIDTH (BEAKER) (test 17.3 % 11.7-14.4 gvkc=709) PLATELET COUNT (BEAKER) (test gvsh=406) 214 K/CU MM 150-450 MEAN PLATELET VOLUME (BEAKER) (test lglh=479) 13.2 fL 9.4-12.3 NUCLEATED RED BLOOD CELLS (BEAKER) (test 0 /100 WBC 0-0 fenh=529) NEUTROPHILS RELATIVE PERCENT (BEAKER) (test 60 % bhrm=644) LYMPHOCYTES RELATIVE PERCENT (BEAKER) (test 25 % tqoc=271) MONOCYTES RELATIVE PERCENT (BEAKER) (test 10 % txjz=448) EOSINOPHILS RELATIVE PERCENT (BEAKER) (test 5 % bjwn=602) BASOPHILS RELATIVE PERCENT (BEAKER) (test 1 % urql=372) NEUTROPHILS ABSOLUTE COUNT (BEAKER) (test 3.58 K/ L 1.56-6.13 qknm=315) LYMPHOCYTES ABSOLUTE COUNT (BEAKER) (test 1.50 K/ L 1.18-3.74 ugfo=135) MONOCYTES ABSOLUTE COUNT (BEAKER) (test 0.58 K/ L 0.24-0.36 oqqv=261) EOSINOPHILS ABSOLUTE COUNT (BEAKER) (test 0.29 K/ L 0.04-0.36 zmfc=728) BASOPHILS ABSOLUTE COUNT (BEAKER) (test 0.05 K/ L 0.01-0.08 kqtc=552) IMMATURE GRANULOCYTES-RELATIVE PERCENT (BEAKER) 0 % 0-1 (test boqb=9442) POCT-GLUCOSE [id number] 21:05:00 Test Item Value Reference Range Comments POC-GLUCOSE METER (BEAKER) 205 mg/dL 70-110 TESTED AT [address] (test dxfv=8550) [facility] [address] POCT-GLUCOSE [id number] 16:23:00 Test Item Value Reference Range Comments POC-GLUCOSE METER (BEAKER) 100 mg/dL 70-110 TESTED AT [address] (test zhwh=6315) [facility] [address] POCT-GLUCOSE [id number] 11:43:00 Test Item Value Reference Range Comments POC-GLUCOSE METER (BEAKER) 104 mg/dL 70-110 TESTED AT [address] (test gpig=2035) [facility] [address] POCT-GLUCOSE [id number] 07:22:00 Test Item Value Reference Range Comments POC-GLUCOSE METER (BEAKER) 103 mg/dL 70-110 TESTED AT [facility] [address] [facility] (test ktkw=0637) [facility] [address] BASIC METABOLIC [id number] 05:51:00 Test Item Value Reference Range Comments SODIUM (BEAKER) (test 137 meq/L 136-145 diyw=414) POTASSIUM (BEAKER) (test 4.7 meq/L 3.5-5.1 lfug=281) CHLORIDE (BEAKER) (test 106 meq/L 98-107 amwo=604) CO2 (BEAKER) (test 23 meq/L 22-29 ojzu=432) BLOOD UREA NITROGEN 56 mg/dL 7-21 (BEAKER) (test bgtz=767) CREATININE (BEAKER) (test 3.16 mg/dL 0.57-1.25 scgn=041) GLUCOSE RANDOM (BEAKER) 77 mg/dL 70-105 (test xmbu=011) CALCIUM (BEAKER) (test 8.9 mg/dL 8.4-10.2 ttts=275) EGFR (BEAKER) (test 15 mL/min/1.73 sq m ESTIMATED GFR IS NOT rgpp=1523) ACCURATE CREATININE CLEARANCE IN PREDICTING GLOMERULAR FILTRATION RATE. ESTIMATED GFR IS NOT APPLICABLE FOR DIALYSIS PATIENTS. [id number] 05:50:00 Test Item Value Reference Range Comments MAGNESIUM (BEAKER) (test jkzr=227) 2.1 mg/dL 1.6-2.6 CBC W/PLT COUNT & AUTO [id number] 05:28:00 Test Item Value Reference Range Comments WHITE BLOOD CELL COUNT (BEAKER) (test dywl=896) 6.2 K/ L 3.5-10.5 RED BLOOD CELL COUNT (BEAKER) (test avgb=621) 2.65 M/ L 3.93-5.22 HEMOGLOBIN (BEAKER) (test ufbt=250) 7.7 GM/DL 11.2-15.7 HEMATOCRIT (BEAKER) (test fmdo=042) 24.8 % 34.1-44.9 MEAN CORPUSCULAR VOLUME (BEAKER) (test lgdt=930) 93.6 fL 79.4-94.8 MEAN CORPUSCULAR HEMOGLOBIN (BEAKER) (test 29.1 pg 25.6-32.2 tyux=049) MEAN CORPUSCULAR HEMOGLOBIN CONC (BEAKER) (test 31.0 GM/DL 32.2-35.5 gunp=102) RED CELL DISTRIBUTION WIDTH (BEAKER) (test 17.4 % 11.7-14.4 lcra=851) PLATELET COUNT (BEAKER) (test zanl=575) 226 K/CU MM 150-450 MEAN PLATELET VOLUME (BEAKER) (test hhdv=686) 12.6 fL 9.4-12.3 NUCLEATED RED BLOOD CELLS (BEAKER) (test 0 /100 WBC 0-0 bxta=301) NEUTROPHILS RELATIVE PERCENT (BEAKER) (test 60 % lkza=245) LYMPHOCYTES RELATIVE PERCENT (BEAKER) (test 25 % mawx=077) MONOCYTES RELATIVE PERCENT (BEAKER) (test 9 % plde=959) EOSINOPHILS RELATIVE PERCENT (BEAKER) (test 5 % atvq=169) BASOPHILS RELATIVE PERCENT (BEAKER) (test 1 % nfds=188) NEUTROPHILS ABSOLUTE COUNT (BEAKER) (test 3.72 K/ L 1.56-6.13 aicz=206) LYMPHOCYTES ABSOLUTE COUNT (BEAKER) (test 1.55 K/ L 1.18-3.74 ybsi=229) MONOCYTES ABSOLUTE COUNT (BEAKER) (test 0.58 K/ L 0.24-0.36 dgmb=723) EOSINOPHILS ABSOLUTE COUNT (BEAKER) (test 0.31 K/ L 0.04-0.36 nvpu=957) BASOPHILS ABSOLUTE COUNT (BEAKER) (test 0.05 K/ L 0.01-0.08 bjom=365) IMMATURE GRANULOCYTES-RELATIVE PERCENT (BEAKER) 1 % 0-1 (test gweq=1176) POCT-GLUCOSE [id number] 20:37:00 Test Item Value Reference Range Comments POC-GLUCOSE METER (BEAKER) 210 mg/dL 70-110 TESTED AT [address] (test ymhn=1165) [facility] [address] POCT-GLUCOSE [id number] 16:37:00 Test Item Value Reference Range Comments POC-GLUCOSE METER (BEAKER) 209 mg/dL 70-110 TESTED AT [address] (test hklw=2446) [facility] [address] POCT-GLUCOSE [id number] 08:41:00 Test Item Value Reference Range Comments POC-GLUCOSE METER (BEAKER) 127 mg/dL 70-110 TESTED AT [place] [address] [address] (test omlq=2692) [facility] [address] BASIC METABOLIC [id number] 06:15:00 Test Item Value Reference Range Comments SODIUM (BEAKER) (test 138 meq/L 136-145 ssnv=773) POTASSIUM (BEAKER) (test 4.9 meq/L 3.5-5.1 ngvu=233) CHLORIDE (BEAKER) (test 106 meq/L 98-107 uqlo=107) CO2 (BEAKER) (test 23 meq/L 22-29 npmh=301) BLOOD UREA NITROGEN 57 mg/dL 7-21 (BEAKER) (test qbjw=394) CREATININE (BEAKER) (test 3.35 mg/dL 0.57-1.25 cncf=729) GLUCOSE RANDOM (BEAKER) 108 mg/dL 70-105 (test jcmj=443) CALCIUM (BEAKER) (test 8.9 mg/dL 8.4-10.2 nlyl=938) EGFR (BEAKER) (test 14 mL/min/1.73 sq m ESTIMATED GFR IS NOT ibha=4910) ACCURATE CREATININE CLEARANCE IN PREDICTING GLOMERULAR FILTRATION RATE. ESTIMATED GFR IS NOT APPLICABLE FOR DIALYSIS PATIENTS. [id number] 06:14:00 Test Item Value Reference Range Comments PHOSPHORUS (BEAKER) (test mbyf=604) 4.5 mg/dL 2.3-4.7 [id number] 06:14:00 Test Item Value Reference Range Comments MAGNESIUM (BEAKER) (test wgno=394) 2.1 mg/dL 1.6-2.6 CBC W/PLT COUNT & AUTO [id number] 05:51:00 Test Item Value Reference Range Comments WHITE BLOOD CELL COUNT (BEAKER) (test gmby=518) 6.6 K/ L 3.5-10.5 RED BLOOD CELL COUNT (BEAKER) (test thbr=512) 2.64 M/ L 3.93-5.22 HEMOGLOBIN (BEAKER) (test svcl=391) 7.6 GM/DL 11.2-15.7 HEMATOCRIT (BEAKER) (test zaln=744) 24.6 % 34.1-44.9 MEAN CORPUSCULAR VOLUME (BEAKER) (test mwny=761) 93.2 fL 79.4-94.8 MEAN CORPUSCULAR HEMOGLOBIN (BEAKER) (test 28.8 pg 25.6-32.2 ymha=358) MEAN CORPUSCULAR HEMOGLOBIN CONC (BEAKER) (test 30.9 GM/DL 32.2-35.5 redc=206) RED CELL DISTRIBUTION WIDTH (BEAKER) (test 17.3 % 11.7-14.4 qwab=390) PLATELET COUNT (BEAKER) (test fftx=489) 221 K/CU MM 150-450 MEAN PLATELET VOLUME (BEAKER) (test yjdd=787) 13.0 fL 9.4-12.3 NUCLEATED RED BLOOD CELLS (BEAKER) (test 0 /100 WBC 0-0 emyf=480) NEUTROPHILS RELATIVE PERCENT (BEAKER) (test 62 % nzqp=581) LYMPHOCYTES RELATIVE PERCENT (BEAKER) (test 24 % qvnw=142) MONOCYTES RELATIVE PERCENT (BEAKER) (test 9 % txco=413) EOSINOPHILS RELATIVE PERCENT (BEAKER) (test 4 % dorw=433) BASOPHILS RELATIVE PERCENT (BEAKER) (test 1 % bsym=957) NEUTROPHILS ABSOLUTE COUNT (BEAKER) (test 4.09 K/ L 1.56-6.13 nrds=099) LYMPHOCYTES ABSOLUTE COUNT (BEAKER) (test 1.57 K/ L 1.18-3.74 ypni=608) MONOCYTES ABSOLUTE COUNT (BEAKER) (test 0.61 K/ L 0.24-0.36 elta=789) EOSINOPHILS ABSOLUTE COUNT (BEAKER) (test 0.25 K/ L 0.04-0.36 ufoo=501) BASOPHILS ABSOLUTE COUNT (BEAKER) (test 0.06 K/ L 0.01-0.08 cqao=517) IMMATURE GRANULOCYTES-RELATIVE PERCENT (BEAKER) 0 % 0-1 (test bqfj=0301) POCT-GLUCOSE [id number] 21:17:00 Test Item Value Reference Range Comments POC-GLUCOSE METER (BEAKER) 132 mg/dL 70-110 TESTED AT [address] (test jvme=5917) [facility] [address] POCT-GLUCOSE [id number] 18:13:00 Test Item Value Reference Range Comments POC-GLUCOSE METER (BEAKER) 164 mg/dL 70-110 TESTED AT [address] (test vwzi=2483) [facility] [address] POCT-GLUCOSE [id number] 13:11:00 Test Item Value Reference Range Comments POC-GLUCOSE METER (BEAKER) 135 mg/dL 70-110 TESTED AT [facility] [address] [facility] (test xnwd=3614) [facility] [address] POCT-GLUCOSE [id number] 08:56:00 Test Item Value Reference Range Comments POC-GLUCOSE METER (BEAKER) 159 mg/dL 70-110 TESTED AT [address] (test fslq=4281) [facility] [address] POCT-GLUCOSE [id number] 07:29:00 Test Item Value Reference Range Comments POC-GLUCOSE METER (BEAKER) 142 mg/dL 70-110 TESTED AT [address] (test xxgk=2415) [facility] [address] BASIC METABOLIC [id number] 05:57:00 Test Item Value Reference Range Comments SODIUM (BEAKER) (test 137 meq/L 136-145 kvyj=017) POTASSIUM (BEAKER) (test 4.6 meq/L 3.5-5.1 sopv=396) CHLORIDE (BEAKER) (test 105 meq/L 98-107 iifw=798) CO2 (BEAKER) (test 22 meq/L 22-29 aiaq=883) BLOOD UREA NITROGEN 55 mg/dL 7-21 (BEAKER) (test rsek=603) CREATININE (BEAKER) (test 3.36 mg/dL 0.57-1.25 toai=826) GLUCOSE RANDOM (BEAKER) 112 mg/dL 70-105 (test lohm=935) CALCIUM (BEAKER) (test 9.1 mg/dL 8.4-10.2 ynyc=568) EGFR (BEAKER) (test 14 mL/min/1.73 sq m ESTIMATED GFR IS NOT wtxu=5173) ACCURATE CREATININE CLEARANCE IN PREDICTING GLOMERULAR FILTRATION RATE. ESTIMATED GFR IS NOT APPLICABLE FOR DIALYSIS PATIENTS. [id number] 05:53:00 Test Item Value Reference Range Comments MAGNESIUM (BEAKER) (test jjhj=946) 2.0 mg/dL 1.6-2.6 CBC W/PLT COUNT & AUTO [id number] 05:30:00 Test Item Value Reference Range Comments WHITE BLOOD CELL COUNT (BEAKER) (test mvvh=462) 6.6 K/ L 3.5-10.5 RED BLOOD CELL COUNT (BEAKER) (test yavr=917) 2.83 M/ L 3.93-5.22 HEMOGLOBIN (BEAKER) (test xpfc=341) 8.3 GM/DL 11.2-15.7 HEMATOCRIT (BEAKER) (test yjlo=973) 26.3 % 34.1-44.9 MEAN CORPUSCULAR VOLUME (BEAKER) (test cpdk=908) 92.9 fL 79.4-94.8 MEAN CORPUSCULAR HEMOGLOBIN (BEAKER) (test 29.3 pg 25.6-32.2 mrun=006) MEAN CORPUSCULAR HEMOGLOBIN CONC (BEAKER) (test 31.6 GM/DL 32.2-35.5 vpgj=589) RED CELL DISTRIBUTION WIDTH (BEAKER) (test 17.4 % 11.7-14.4 dozh=524) PLATELET COUNT (BEAKER) (test crla=546) 231 K/CU MM 150-450 MEAN PLATELET VOLUME (BEAKER) (test dkka=493) 12.4 fL 9.4-12.3 NUCLEATED RED BLOOD CELLS (BEAKER) (test 0 /100 WBC 0-0 lrut=304) NEUTROPHILS RELATIVE PERCENT (BEAKER) (test 60 % sytx=960) LYMPHOCYTES RELATIVE PERCENT (BEAKER) (test 25 % znpr=163) MONOCYTES RELATIVE PERCENT (BEAKER) (test 10 % rbwh=088) EOSINOPHILS RELATIVE PERCENT (BEAKER) (test 4 % xuqz=862) BASOPHILS RELATIVE PERCENT (BEAKER) (test 1 % asae=470) NEUTROPHILS ABSOLUTE COUNT (BEAKER) (test 3.95 K/ L 1.56-6.13 ojlm=951) LYMPHOCYTES ABSOLUTE COUNT (BEAKER) (test 1.66 K/ L 1.18-3.74 pmwk=745) MONOCYTES ABSOLUTE COUNT (BEAKER) (test 0.62 K/ L 0.24-0.36 zttm=211) EOSINOPHILS ABSOLUTE COUNT (BEAKER) (test 0.27 K/ L 0.04-0.36 pyrx=082) BASOPHILS ABSOLUTE COUNT (BEAKER) (test 0.04 K/ L 0.01-0.08 eisu=377) IMMATURE GRANULOCYTES-RELATIVE PERCENT (BEAKER) 0 % 0-1 (test ljdi=4329) POCT-GLUCOSE [id number] 21:28:00 Test Item Value Reference Range Comments POC-GLUCOSE METER (BEAKER) 149 mg/dL 70-110 TESTED AT [address] (test lzfk=5912) [facility] [address] POCT-GLUCOSE [id number] 17:40:00 Test Item Value Reference Range Comments POC-GLUCOSE METER (BEAKER) 147 mg/dL 70-110 TESTED AT [address] (test zibt=6970) [facility] [address] POCT-GLUCOSE [id number] 12:14:00 Test Item Value Reference Range Comments POC-GLUCOSE METER (BEAKER) 129 mg/dL 70-110 TESTED AT [address] (test fzpk=9408) [facility] [address] POCT-GLUCOSE [id number] 07:35:00 Test Item Value Reference Range Comments POC-GLUCOSE METER (BEAKER) 125 mg/dL 70-110 TESTED AT [address] (test qftd=5593) [facility] [address] [id number] 06:48:00 Test Item Value Reference Range Comments MAGNESIUM (BEAKER) (test smcv=478) 2.1 mg/dL 1.6-2.6 BASIC METABOLIC [id number] 06:48:00 Test Item Value Reference Range Comments SODIUM (BEAKER) (test 136 meq/L 136-145 wuhu=554) POTASSIUM (BEAKER) (test 4.7 meq/L 3.5-5.1 naef=863) CHLORIDE (BEAKER) (test 104 meq/L 98-107 cnml=284) CO2 (BEAKER) (test 24 meq/L 22-29 ilar=070) BLOOD UREA NITROGEN 58 mg/dL 7-21 (BEAKER) (test toky=027) CREATININE (BEAKER) (test 3.40 mg/dL 0.57-1.25 cnuv=669) GLUCOSE RANDOM (BEAKER) 95 mg/dL 70-105 (test xnwn=824) CALCIUM (BEAKER) (test 9.0 mg/dL 8.4-10.2 efny=252) EGFR (BEAKER) (test 14 mL/min/1.73 sq m ESTIMATED GFR IS NOT vhgc=1571) ACCURATE CREATININE CLEARANCE IN PREDICTING GLOMERULAR FILTRATION RATE. ESTIMATED GFR IS NOT APPLICABLE FOR DIALYSIS PATIENTS. CBC W/PLT COUNT & AUTO [id number] 06:05:00 Test Item Value Reference Range Comments WHITE BLOOD CELL COUNT (BEAKER) (test zwcg=536) 6.2 K/ L 3.5-10.5 RED BLOOD CELL COUNT (BEAKER) (test niry=153) 2.70 M/ L 3.93-5.22 HEMOGLOBIN (BEAKER) (test fpnu=675) 7.9 GM/DL 11.2-15.7 HEMATOCRIT (BEAKER) (test jcis=542) 24.9 % 34.1-44.9 MEAN CORPUSCULAR VOLUME (BEAKER) (test jjyb=619) 92.2 fL 79.4-94.8 MEAN CORPUSCULAR HEMOGLOBIN (BEAKER) (test 29.3 pg 25.6-32.2 awng=281) MEAN CORPUSCULAR HEMOGLOBIN CONC (BEAKER) (test 31.7 GM/DL 32.2-35.5 cygo=992) RED CELL DISTRIBUTION WIDTH (BEAKER) (test 17.7 % 11.7-14.4 lmcf=008) PLATELET COUNT (BEAKER) (test hrxf=499) 208 K/CU MM 150-450 MEAN PLATELET VOLUME (BEAKER) (test zjqr=968) 12.6 fL 9.4-12.3 NUCLEATED RED BLOOD CELLS (BEAKER) (test 0 /100 WBC 0-0 puej=115) NEUTROPHILS RELATIVE PERCENT (BEAKER) (test 60 % vckp=628) LYMPHOCYTES RELATIVE PERCENT (BEAKER) (test 22 % jmut=738) MONOCYTES RELATIVE PERCENT (BEAKER) (test 11 % vnhp=359) EOSINOPHILS RELATIVE PERCENT (BEAKER) (test 5 % xakv=259) BASOPHILS RELATIVE PERCENT (BEAKER) (test 1 % wasw=185) NEUTROPHILS ABSOLUTE COUNT (BEAKER) (test 3.74 K/ L 1.56-6.13 sshw=295) LYMPHOCYTES ABSOLUTE COUNT (BEAKER) (test 1.39 K/ L 1.18-3.74 ltwk=239) MONOCYTES ABSOLUTE COUNT (BEAKER) (test 0.68 K/ L 0.24-0.36 wtvs=385) EOSINOPHILS ABSOLUTE COUNT (BEAKER) (test 0.31 K/ L 0.04-0.36 pzoa=514) BASOPHILS ABSOLUTE COUNT (BEAKER) (test 0.06 K/ L 0.01-0.08 rbuq=455) IMMATURE GRANULOCYTES-RELATIVE PERCENT (BEAKER) 0 % 0-1 (test xfmh=9604) POCT-GLUCOSE [id number] 21:22:00 Test Item Value Reference Range Comments POC-GLUCOSE METER (BEAKER) 206 mg/dL 70-110 TESTED AT [address] (test iqak=9248) [facility] [address] POCT-GLUCOSE [id number] 16:23:00 Test Item Value Reference Range Comments POC-GLUCOSE METER (BEAKER) 188 mg/dL 70-110 TESTED AT [address] (test btlz=8919) [place] [id number] POCT-GLUCOSE [id number] 12:37:00 Test Item Value Reference Range Comments POC-GLUCOSE METER (BEAKER) 172 mg/dL 70-110 TESTED AT [address] (test paig=4330) [place] [address] POCT-GLUCOSE [id number] 11:22:00 Test Item Value Reference Range Comments POC-GLUCOSE METER (BEAKER) 193 mg/dL 70-110 TESTED AT [address] (test dgyl=0394) [place] [address] POCT-GLUCOSE [id number] 08:06:00 Test Item Value Reference Range Comments POC-GLUCOSE METER (BEAKER) 143 mg/dL 70-110 TESTED AT [address] (test rkvw=9003) [place] [address] POCT-GLUCOSE [id number] 07:06:00 Test Item Value Reference Range Comments POC-GLUCOSE METER (BEAKER) 89 mg/dL 70-110 TESTED AT [address] (test xnyt=9238) [facility] [address] BASIC METABOLIC [id number] 06:28:00 Test Item Value Reference Range Comments SODIUM (BEAKER) (test 136 meq/L 136-145 satw=277) POTASSIUM (BEAKER) (test 4.8 meq/L 3.5-5.1 kfra=282) CHLORIDE (BEAKER) (test 103 meq/L 98-107 demb=797) CO2 (BEAKER) (test 23 meq/L 22-29 qbhl=777) BLOOD UREA NITROGEN 58 mg/dL 7-21 (BEAKER) (test okze=980) CREATININE (BEAKER) (test 3.71 mg/dL 0.57-1.25 gkry=543) GLUCOSE RANDOM (BEAKER) 135 mg/dL 70-105 (test fule=843) CALCIUM (BEAKER) (test 9.0 mg/dL 8.4-10.2 jynt=074) EGFR (BEAKER) (test 12 mL/min/1.73 sq m ESTIMATED GFR IS NOT bksa=6540) ACCURATE CREATININE CLEARANCE IN PREDICTING GLOMERULAR FILTRATION RATE. ESTIMATED GFR IS NOT APPLICABLE FOR DIALYSIS PATIENTS. [id number] 06:26:00 Test Item Value Reference Range Comments PHOSPHORUS (BEAKER) (test eyzb=419) 5.1 mg/dL 2.3-4.7 [id number] 06:26:00 Test Item Value Reference Range Comments MAGNESIUM (BEAKER) (test hskp=196) 2.1 mg/dL 1.6-2.6 CBC W/PLT COUNT & AUTO [id number] 05:53:00 Test Item Value Reference Range Comments WHITE BLOOD CELL COUNT (BEAKER) (test eryk=314) 6.2 K/ L 3.5-10.5 RED BLOOD CELL COUNT (BEAKER) (test bhlj=384) 2.73 M/ L 3.93-5.22 HEMOGLOBIN (BEAKER) (test lyon=460) 8.0 GM/DL 11.2-15.7 HEMATOCRIT (BEAKER) (test ljfy=452) 25.0 % 34.1-44.9 MEAN CORPUSCULAR VOLUME (BEAKER) (test dgsw=295) 91.6 fL 79.4-94.8 MEAN CORPUSCULAR HEMOGLOBIN (BEAKER) (test 29.3 pg 25.6-32.2 lhba=801) MEAN CORPUSCULAR HEMOGLOBIN CONC (BEAKER) (test 32.0 GM/DL 32.2-35.5 mteq=081) RED CELL DISTRIBUTION WIDTH (BEAKER) (test 18.1 % 11.7-14.4 vjjc=316) PLATELET COUNT (BEAKER) (test bqdy=266) 228 K/CU MM 150-450 MEAN PLATELET VOLUME (BEAKER) (test wfrh=974) 12.8 fL 9.4-12.3 NUCLEATED RED BLOOD CELLS (BEAKER) (test 0 /100 WBC 0-0 sttc=665) NEUTROPHILS RELATIVE PERCENT (BEAKER) (test 61 % fuoc=634) LYMPHOCYTES RELATIVE PERCENT (BEAKER) (test 24 % gtbr=695) MONOCYTES RELATIVE PERCENT (BEAKER) (test 10 % yeoq=884) EOSINOPHILS RELATIVE PERCENT (BEAKER) (test 4 % krma=839) BASOPHILS RELATIVE PERCENT (BEAKER) (test 1 % hwtk=165) NEUTROPHILS ABSOLUTE COUNT (BEAKER) (test 3.81 K/ L 1.56-6.13 qgtn=404) LYMPHOCYTES ABSOLUTE COUNT (BEAKER) (test 1.47 K/ L 1.18-3.74 olhf=780) MONOCYTES ABSOLUTE COUNT (BEAKER) (test 0.64 K/ L 0.24-0.36 grft=881) EOSINOPHILS ABSOLUTE COUNT (BEAKER) (test 0.25 K/ L 0.04-0.36 awps=301) BASOPHILS ABSOLUTE COUNT (BEAKER) (test 0.04 K/ L 0.01-0.08 rbut=164) IMMATURE GRANULOCYTES-RELATIVE PERCENT (BEAKER) 0 % 0-1 (test xkqb=0480) POCT-GLUCOSE [id number] 18:09:00 Test Item Value Reference Range Comments POC-GLUCOSE METER (BEAKER) 134 mg/dL 70-110 TESTED AT [address] (test cexa=8948) [place] [id number] POCT-GLUCOSE [id number] 12:32:00 Test Item Value Reference Range Comments POC-GLUCOSE METER (BEAKER) 133 mg/dL 70-110 TESTED AT [address] (test heih=3653) [place] [id number] EEG AWAKE AND [id number] 11:32:00Reason for exam:->SeizuresShould this be performed at the bedside?->YesDATE OF EXAMINATION: 02/16/18 EEG NO: 1988 CPT: 49185 ICD-10: R56.9 CONDITION OF REPORT: Thisis a digital EEG study , using the standard International 10-20 System for placement of 22 electrodes, including eye movement leads, and an EKG lead. TECHNICAL SUMMARY: During the maximally awake state, a well-regulated, moderate amplitude occipital dominant rhythm of 9-10 Hz alpha is present bilaterally. More anteriorly, similar as well as faster frequencies of lower amplitudes are present, including low voltage 13-18 Hz beta in the anterior leads. Photic stimulation elicits no epileptiform abnormalities. With drowsiness, the overall background amplitudes are relatively diminished, while increased amounts of diffuse 5-7 Hz theta and rhythmical slowing emerge. During sleep, POSTS, sleep spindles, K- complexes, and vertex waves are present. IMPRESSION: This is a normal EEG study, capturing the full spectrum of the awake, drowsy, and asleep states. There is no evidence for epileptiform abnormality, including absence of electrographic seizure. COMMENT: The absence of epileptiform abnormality does not necessarily preclude the clinical diagnosis of epilepsy. Elbert Santiago MD Departmentof Neurology [facility] POCT-GLUCOSE [id number] 08:52:00 Test Item Value Reference Range Comments POC-GLUCOSE METER (BEAKER) 159 mg/dL 70-110 TESTED AT [facility] [address] [facility] (test njrr=4420) [facility] [address] B-TYPE NATRIURETIC FACTOR (BNP)2018-02-16 06:29:00 Test Item Value Reference Range Comments B-TYPE NATRIURETIC PEPTIDE (BEAKER) (test 302 pg/mL 0-100 zbyr=399) CBC W/PLT COUNT & AUTO [id number] 06:10:00 Test Item Value Reference Range Comments WHITE BLOOD CELL COUNT (BEAKER) (test nwvv=528) 5.7 K/ L 3.5-10.5 RED BLOOD CELL COUNT (BEAKER) (test drpc=016) 2.65 M/ L 3.93-5.22 HEMOGLOBIN (BEAKER) (test rlmm=971) 7.7 GM/DL 11.2-15.7 HEMATOCRIT (BEAKER) (test falz=600) 24.3 % 34.1-44.9 MEAN CORPUSCULAR VOLUME (BEAKER) (test ione=426) 91.7 fL 79.4-94.8 MEAN CORPUSCULAR HEMOGLOBIN (BEAKER) (test 29.1 pg 25.6-32.2 rwyp=669) MEAN CORPUSCULAR HEMOGLOBIN CONC (BEAKER) (test 31.7 GM/DL 32.2-35.5 jyfv=956) RED CELL DISTRIBUTION WIDTH (BEAKER) (test 18.2 % 11.7-14.4 btac=915) PLATELET COUNT (BEAKER) (test oxha=144) 217 K/CU MM 150-450 MEAN PLATELET VOLUME (BEAKER) (test ieyy=094) 13.4 fL 9.4-12.3 NUCLEATED RED BLOOD CELLS (BEAKER) (test 0 /100 WBC 0-0 sirh=108) NEUTROPHILS RELATIVE PERCENT (BEAKER) (test 55 % lujh=543) LYMPHOCYTES RELATIVE PERCENT (BEAKER) (test 29 % xozq=439) MONOCYTES RELATIVE PERCENT (BEAKER) (test 10 % vwoo=347) EOSINOPHILS RELATIVE PERCENT (BEAKER) (test 5 % iiih=215) BASOPHILS RELATIVE PERCENT (BEAKER) (test 1 % cnei=668) NEUTROPHILS ABSOLUTE COUNT (BEAKER) (test 3.16 K/ L 1.56-6.13 rclh=511) LYMPHOCYTES ABSOLUTE COUNT (BEAKER) (test 1.65 K/ L 1.18-3.74 zrld=538) MONOCYTES ABSOLUTE COUNT (BEAKER) (test 0.59 K/ L 0.24-0.36 gfid=415) EOSINOPHILS ABSOLUTE COUNT (BEAKER) (test 0.27 K/ L 0.04-0.36 szak=192) BASOPHILS ABSOLUTE COUNT (BEAKER) (test 0.04 K/ L 0.01-0.08 eggk=164) IMMATURE GRANULOCYTES-RELATIVE PERCENT (BEAKER) 0 % 0-1 (test ykcm=3088) BASIC METABOLIC [id number] 06:08:00 Test Item Value Reference Range Comments SODIUM (BEAKER) (test 133 meq/L 136-145 gklw=797) POTASSIUM (BEAKER) (test 4.6 meq/L 3.5-5.1 zvrp=512) CHLORIDE (BEAKER) (test 101 meq/L 98-107 xgqp=507) CO2 (BEAKER) (test 22 meq/L 22-29 dubo=850) BLOOD UREA NITROGEN 53 mg/dL 7-21 (BEAKER) (test jord=564) CREATININE (BEAKER) (test 3.79 mg/dL 0.57-1.25 dtha=452) GLUCOSE RANDOM (BEAKER) 131 mg/dL 70-105 (test qoob=475) CALCIUM (BEAKER) (test 8.6 mg/dL 8.4-10.2 nfiv=456) EGFR (BEAKER) (test 12 mL/min/1.73 sq m ESTIMATED GFR IS NOT gdzs=8795) ACCURATE CREATININE CLEARANCE IN PREDICTING GLOMERULAR FILTRATION RATE. ESTIMATED GFR IS NOT APPLICABLE FOR DIALYSIS PATIENTS. [id number] 06:07:00 Test Item Value Reference Range Comments MAGNESIUM (BEAKER) (test jbbf=742) 2.0 mg/dL 1.6-2.6 CT, BRAIN, WITHOUT [id number] 03:50:00FINAL REPORT CT, BRAIN, WITHOUT CONTRAST INDICATION: stroke, confusion TECHNIQUE: Noncontrast axial imaging was obtained from the vertex to the skull base. Axial images were reconstructed using a bone algorithm. DOSE REDUCTION: Dose modulation, iterative reconstruction, and/or weight-based adjustment of the mA/ kV was utilized to reduce the radiation dose to as low as reasonablyachievable. COMPARISON: 07/10/17 FINDINGS: Cerebral parenchyma: Diffuse parenchymal volume loss. Appearance of the white matter suggests chronic microvascular disease.Midline structures: Normally positioned.Cerebellum and brainstem: Commensurate volume loss.Ventricles: Normal volume.Extra-axial spaces: Unremarkable. Calvarium and skull base: Intact.Paranasal sinuses and mastoid air cells: Visible chambers are clear.Orbital contents: Included portions unremarkable. Additional findings: None. IMPRESSION: Chronic involutional changes without acute intracranial abnormality. If there is persistent clinical concern for intracranial pathology, MR examination is recommended for further characterization. Signed: JR Aranda Robert MDReport Verified Date/Time: 02/16/2018 03:50:17 Reading Location: [facility] C013Y CT Body Reading Room POCT- GLUCOSE [id number] 21:32:00 Test Item Value Reference Range Comments POC-GLUCOSE METER (BEAKER) 130 mg/dL 70-110 TESTED AT [address] (test jvrx=0606) [place] [id number] POCT-GLUCOSE [id number] 16:48:00 Test Item Value Reference Range Comments POC-GLUCOSE METER (BEAKER) 90 mg/dL 70-110 TESTED AT [address] (test mtat=6502) [facility] [address] HEMOGLOBIN AND [id number] 13:03:00 Test Item Value Reference Range Comments HEMOGLOBIN (BEAKER) (test qhbh=115) 6.5 GM/DL 11.2-15.7 HEMATOCRIT (BEAKER) (test bjyy=142) 20.7 % 34.1-44.9 Page if hgb < 7POCT-GLUCOSE [id number] 11:14:00 Test Item Value Reference Range Comments POC-GLUCOSE METER (BEAKER) 147 mg/dL 70-110 TESTED AT [place] [id number] [facility] (test fhij=4882) [facility] [address] POCT-GLUCOSE [id number] 07:41:00 Test Item Value Reference Range Comments POC-GLUCOSE METER (BEAKER) 176 mg/dL 70-110 TESTED AT [address] (test unrt=5454) [facility] [address] BASIC METABOLIC [id number] 06:10:00 Test Item Value Reference Range Comments SODIUM (BEAKER) (test 135 meq/L 136-145 hota=268) POTASSIUM (BEAKER) (test 4.7 meq/L 3.5-5.1 ltmr=448) CHLORIDE (BEAKER) (test 101 meq/L 98-107 nncj=434) CO2 (BEAKER) (test 23 meq/L 22-29 hjhl=465) BLOOD UREA NITROGEN 50 mg/dL 7-21 (BEAKER) (test pvcr=721) CREATININE (BEAKER) (test 3.78 mg/dL 0.57-1.25 fkzg=394) GLUCOSE RANDOM (BEAKER) 136 mg/dL 70-105 (test eafz=187) CALCIUM (BEAKER) (test 8.8 mg/dL 8.4-10.2 rlze=551) EGFR (BEAKER) (test 12 mL/min/1.73 sq m ESTIMATED GFR IS NOT mynf=7764) ACCURATE CREATININE CLEARANCE IN PREDICTING GLOMERULAR FILTRATION RATE. ESTIMATED GFR IS NOT APPLICABLE FOR DIALYSIS PATIENTS. [id number] 06:02:00 Test Item Value Reference Range Comments MAGNESIUM (BEAKER) (test siyj=339) 1.9 mg/dL 1.6-2.6 CBC W/PLT COUNT & AUTO [id number] 05:47:00 Test Item Value Reference Range Comments WHITE BLOOD CELL COUNT (BEAKER) (test ewgw=217) 7.1 K/ L 3.5-10.5 RED BLOOD CELL COUNT (BEAKER) (test lxwd=394) 2.15 M/ L 3.93-5.22 HEMOGLOBIN (BEAKER) (test ubbl=088) 6.6 GM/DL 11.2-15.7 HEMATOCRIT (BEAKER) (test exks=661) 21.1 % 34.1-44.9 MEAN CORPUSCULAR VOLUME (BEAKER) (test ruvw=947) 98.1 fL 79.4-94.8 MEAN CORPUSCULAR HEMOGLOBIN (BEAKER) (test 30.7 pg 25.6-32.2 lmmm=157) MEAN CORPUSCULAR HEMOGLOBIN CONC (BEAKER) (test 31.3 GM/DL 32.2-35.5 ovhx=946) RED CELL DISTRIBUTION WIDTH (BEAKER) (test 13.5 % 11.7-14.4 dlyr=033) PLATELET COUNT (BEAKER) (test qdns=211) 206 K/CU MM 150-450 MEAN PLATELET VOLUME (BEAKER) (test xtxv=607) 13.2 fL 9.4-12.3 NUCLEATED RED BLOOD CELLS (BEAKER) (test 0 /100 WBC 0-0 fhmb=898) NEUTROPHILS RELATIVE PERCENT (BEAKER) (test 64 % engz=513) LYMPHOCYTES RELATIVE PERCENT (BEAKER) (test 21 % bdnw=038) MONOCYTES RELATIVE PERCENT (BEAKER) (test 10 % rmzp=445) EOSINOPHILS RELATIVE PERCENT (BEAKER) (test 4 % wjvw=681) BASOPHILS RELATIVE PERCENT (BEAKER) (test 1 % fhye=051) NEUTROPHILS ABSOLUTE COUNT (BEAKER) (test 4.54 K/ L 1.56-6.13 jrgf=429) LYMPHOCYTES ABSOLUTE COUNT (BEAKER) (test 1.49 K/ L 1.18-3.74 dzcp=059) MONOCYTES ABSOLUTE COUNT (BEAKER) (test 0.70 K/ L 0.24-0.36 wyco=182) EOSINOPHILS ABSOLUTE COUNT (BEAKER) (test 0.31 K/ L 0.04-0.36 agee=460) BASOPHILS ABSOLUTE COUNT (BEAKER) (test 0.04 K/ L 0.01-0.08 bruo=252) IMMATURE GRANULOCYTES-RELATIVE PERCENT (BEAKER) 1 % 0-1 (test icpi=1146) POCT-GLUCOSE [id number] 21:17:00 Test Item Value Reference Range Comments POC-GLUCOSE METER (BEAKER) 235 mg/dL 70-110 TESTED AT [facility] [address] [facility] (test zwtm=9747) [facility] [address] POCT-GLUCOSE [id number] 17:07:00 Test Item Value Reference Range Comments POC-GLUCOSE METER (BEAKER) 304 mg/dL 70-110 Notified SAMAN HERNANDEZ/TESTED AT [facility] (test idog=9695) [address] [place] [address] POCT-GLUCOSE [id number] 12:13:00 Test Item Value Reference Range Comments POC-GLUCOSE METER (BEAKER) 225 mg/dL 70-110 TESTED AT [address] (test hzbc=1441) [facility] [address] POCT-GLUCOSE [id number] 08:01:00 Test Item Value Reference Range Comments POC-GLUCOSE METER (BEAKER) 177 mg/dL 70-110 TESTED AT [address] (test rurz=8999) [facility] [address] BASIC METABOLIC [id number] 07:41:00 Test Item Value Reference Range Comments SODIUM (BEAKER) (test 132 meq/L 136-145 xxjh=427) POTASSIUM (BEAKER) (test 4.7 meq/L 3.5-5.1 yhfz=950) CHLORIDE (BEAKER) (test 100 meq/L 98-107 lktg=707) CO2 (BEAKER) (test 23 meq/L 22-29 oybj=527) BLOOD UREA NITROGEN 45 mg/dL 7-21 (BEAKER) (test pjwc=990) CREATININE (BEAKER) (test 3.50 mg/dL 0.57-1.25 ghgc=553) GLUCOSE RANDOM (BEAKER) 153 mg/dL 70-105 (test tnlx=567) CALCIUM (BEAKER) (test 8.8 mg/dL 8.4-10.2 dmid=470) EGFR (BEAKER) (test 13 mL/min/1.73 sq m ESTIMATED GFR IS NOT essn=8261) ACCURATE CREATININE CLEARANCE IN PREDICTING GLOMERULAR FILTRATION RATE. ESTIMATED GFR IS NOT APPLICABLE FOR DIALYSIS PATIENTS. [id number] 07:34:00 Test Item Value Reference Range Comments MAGNESIUM (BEAKER) (test qucn=741) 1.9 mg/dL 1.6-2.6 CBC W/PLT COUNT & AUTO [id number] 06:18:00 Test Item Value Reference Range Comments WHITE BLOOD CELL COUNT (BEAKER) (test pirv=006) 7.4 K/ L 3.5-10.5 RED BLOOD CELL COUNT (BEAKER) (test bnmc=127) 2.32 M/ L 3.93-5.22 HEMOGLOBIN (BEAKER) (test jzco=246) 7.1 GM/DL 11.2-15.7 HEMATOCRIT (BEAKER) (test uzto=487) 22.6 % 34.1-44.9 MEAN CORPUSCULAR VOLUME (BEAKER) (test oiga=080) 97.4 fL 79.4-94.8 MEAN CORPUSCULAR HEMOGLOBIN (BEAKER) (test 30.6 pg 25.6-32.2 vxyn=064) MEAN CORPUSCULAR HEMOGLOBIN CONC (BEAKER) (test 31.4 GM/DL 32.2-35.5 wiik=580) RED CELL DISTRIBUTION WIDTH (BEAKER) (test 13.8 % 11.7-14.4 tkdo=190) PLATELET COUNT (BEAKER) (test xrnb=093) 226 K/CU MM 150-450 MEAN PLATELET VOLUME (BEAKER) (test xtib=111) 12.6 fL 9.4-12.3 NUCLEATED RED BLOOD CELLS (BEAKER) (test 0 /100 WBC 0-0 btmp=172) NEUTROPHILS RELATIVE PERCENT (BEAKER) (test 65 % wser=296) LYMPHOCYTES RELATIVE PERCENT (BEAKER) (test 21 % vwqt=562) MONOCYTES RELATIVE PERCENT (BEAKER) (test 9 % svib=804) EOSINOPHILS RELATIVE PERCENT (BEAKER) (test 4 % ybuv=352) BASOPHILS RELATIVE PERCENT (BEAKER) (test 1 % utcs=380) NEUTROPHILS ABSOLUTE COUNT (BEAKER) (test 4.84 K/ L 1.56-6.13 ingl=736) LYMPHOCYTES ABSOLUTE COUNT (BEAKER) (test 1.52 K/ L 1.18-3.74 apth=005) MONOCYTES ABSOLUTE COUNT (BEAKER) (test 0.66 K/ L 0.24-0.36 gvwq=455) EOSINOPHILS ABSOLUTE COUNT (BEAKER) (test 0.32 K/ L 0.04-0.36 xspp=752) BASOPHILS ABSOLUTE COUNT (BEAKER) (test 0.04 K/ L 0.01-0.08 xlmf=518) IMMATURE GRANULOCYTES-RELATIVE PERCENT (BEAKER) 0 % 0-1 (test ufxk=5173) POCT-GLUCOSE [id number] 21:21:00 Test Item Value Reference Range Comments POC-GLUCOSE METER (BEAKER) 188 mg/dL 70-110 TESTED AT [address] (test vqmz=4699) [facility] [address] POCT-GLUCOSE [id number] 17:03:00 Test Item Value Reference Range Comments POC-GLUCOSE METER (BEAKER) 262 mg/dL 70-110 TESTED AT [address] (test sdrb=3541) [facility] [address] POCT-GLUCOSE [id number] 12:03:00 Test Item Value Reference Range Comments POC-GLUCOSE METER (BEAKER) 193 mg/dL 70-110 TESTED AT [address] (test wyio=7178) [facility] [address] POCT-GLUCOSE [id number] 08:18:00 Test Item Value Reference Range Comments POC-GLUCOSE METER (BEAKER) 219 mg/dL 70-110 TESTED AT [address] (test udie=0265) [facility] [address] BASIC METABOLIC [id number] 06:54:00 Test Item Value Reference Range Comments SODIUM (BEAKER) (test 133 meq/L 136-145 ansn=732) POTASSIUM (BEAKER) (test 4.5 meq/L 3.5-5.1 ttjq=476) CHLORIDE (BEAKER) (test 101 meq/L 98-107 xajc=141) CO2 (BEAKER) (test 24 meq/L 22-29 nhpu=806) BLOOD UREA NITROGEN 42 mg/dL 7-21 (BEAKER) (test bbgq=663) CREATININE (BEAKER) (test 3.61 mg/dL 0.57-1.25 fncx=403) GLUCOSE RANDOM (BEAKER) 186 mg/dL 70-105 (test rdyo=454) CALCIUM (BEAKER) (test 8.4 mg/dL 8.4-10.2 pfru=674) EGFR (BEAKER) (test 13 mL/min/1.73 sq m ESTIMATED GFR IS NOT etlx=9807) ACCURATE CREATININE CLEARANCE IN PREDICTING GLOMERULAR FILTRATION RATE. ESTIMATED GFR IS NOT APPLICABLE FOR DIALYSIS PATIENTS. [id number] 06:39:00 Test Item Value Reference Range Comments PHOSPHORUS (BEAKER) (test kcyf=477) 4.5 mg/dL 2.3-4.7 [id number] 06:39:00 Test Item Value Reference Range Comments MAGNESIUM (BEAKER) (test cvws=791) 2.1 mg/dL 1.6-2.6 CBC W/PLT COUNT & AUTO [id number] 05:31:00 Test Item Value Reference Range Comments WHITE BLOOD CELL COUNT (BEAKER) (test keih=574) 7.3 K/ L 3.5-10.5 RED BLOOD CELL COUNT (BEAKER) (test nmmc=347) 2.27 M/ L 3.93-5.22 HEMOGLOBIN (BEAKER) (test wlui=523) 7.0 GM/DL 11.2-15.7 HEMATOCRIT (BEAKER) (test bdsy=518) 22.1 % 34.1-44.9 MEAN CORPUSCULAR VOLUME (BEAKER) (test rlhm=304) 97.4 fL 79.4-94.8 MEAN CORPUSCULAR HEMOGLOBIN (BEAKER) (test 30.8 pg 25.6-32.2 bgnb=352) MEAN CORPUSCULAR HEMOGLOBIN CONC (BEAKER) (test 31.7 GM/DL 32.2-35.5 ohxs=155) RED CELL DISTRIBUTION WIDTH (BEAKER) (test 13.5 % 11.7-14.4 qbjp=982) PLATELET COUNT (BEAKER) (test poyq=284) 195 K/CU MM 150-450 MEAN PLATELET VOLUME (BEAKER) (test zqsa=913) 13.2 fL 9.4-12.3 NUCLEATED RED BLOOD CELLS (BEAKER) (test 0 /100 WBC 0-0 rkey=372) NEUTROPHILS RELATIVE PERCENT (BEAKER) (test 65 % rkqd=658) LYMPHOCYTES RELATIVE PERCENT (BEAKER) (test 21 % ajsg=777) MONOCYTES RELATIVE PERCENT (BEAKER) (test 9 % alex=588) EOSINOPHILS RELATIVE PERCENT (BEAKER) (test 4 % jrgl=530) BASOPHILS RELATIVE PERCENT (BEAKER) (test 1 % frnq=857) NEUTROPHILS ABSOLUTE COUNT (BEAKER) (test 4.75 K/ L 1.56-6.13 yqpv=959) LYMPHOCYTES ABSOLUTE COUNT (BEAKER) (test 1.51 K/ L 1.18-3.74 rqrj=268) MONOCYTES ABSOLUTE COUNT (BEAKER) (test 0.65 K/ L 0.24-0.36 qlxy=587) EOSINOPHILS ABSOLUTE COUNT (BEAKER) (test 0.31 K/ L 0.04-0.36 kklh=744) BASOPHILS ABSOLUTE COUNT (BEAKER) (test 0.04 K/ L 0.01-0.08 jyrm=135) IMMATURE GRANULOCYTES-RELATIVE PERCENT (BEAKER) 1 % 0-1 (test iwku=7134) POCT-GLUCOSE [id number] 20:31:00 Test Item Value Reference Range Comments POC-GLUCOSE METER (BEAKER) 246 mg/dL 70-110 TESTED AT [address] (test nqod=6919) [place] [id number] POCT-GLUCOSE [id number] 19:09:00 Test Item Value Reference Range Comments POC-GLUCOSE METER (BEAKER) 272 mg/dL 70-110 TESTED AT [address] (test hwdo=5885) [place] [id number] POCT-GLUCOSE [id number] 17:42:00 Test Item Value Reference Range Comments POC-GLUCOSE METER (BEAKER) 297 mg/dL 70-110 TESTED AT [address] (test cyhb=5292) [place] [id number] POCT-GLUCOSE [id number] 12:46:00 Test Item Value Reference Range Comments POC-GLUCOSE METER (BEAKER) 183 mg/dL 70-110 TESTED AT [address] (test uidk=8179) [place] [id number] POCT-GLUCOSE [id number] 08:08:00 Test Item Value Reference Range Comments POC-GLUCOSE METER (BEAKER) 207 mg/dL 70-110 TESTED AT [address] (test rati=5226) [facility] [address] BASIC METABOLIC [id number] 06:34:00 Test Item Value Reference Range Comments SODIUM (BEAKER) (test 135 meq/L 136-145 nnrq=875) POTASSIUM (BEAKER) (test 4.2 meq/L 3.5-5.1 mafk=561) CHLORIDE (BEAKER) (test 100 meq/L 98-107 fxcs=124) CO2 (BEAKER) (test 26 meq/L 22-29 nsez=147) BLOOD UREA NITROGEN 36 mg/dL 7-21 (BEAKER) (test hexf=688) CREATININE (BEAKER) (test 3.69 mg/dL 0.57-1.25 jtoo=410) GLUCOSE RANDOM (BEAKER) 166 mg/dL 70-105 (test hrog=567) CALCIUM (BEAKER) (test 8.8 mg/dL 8.4-10.2 vkmq=471) EGFR (BEAKER) (test 12 mL/min/1.73 sq m ESTIMATED GFR IS NOT yhya=5726) ACCURATE CREATININE CLEARANCE IN PREDICTING GLOMERULAR FILTRATION RATE. ESTIMATED GFR IS NOT APPLICABLE FOR DIALYSIS PATIENTS. [id number] 06:28:00 Test Item Value Reference Range Comments MAGNESIUM (BEAKER) (test jswr=745) 1.6 mg/dL 1.6-2.6 CBC W/PLT COUNT & AUTO [id number] 06:12:00 Test Item Value Reference Range Comments WHITE BLOOD CELL COUNT (BEAKER) (test vmoi=836) 7.3 K/ L 3.5-10.5 RED BLOOD CELL COUNT (BEAKER) (test cvqw=376) 2.28 M/ L 3.93-5.22 HEMOGLOBIN (BEAKER) (test vqbr=188) 7.0 GM/DL 11.2-15.7 HEMATOCRIT (BEAKER) (test ujqg=321) 22.0 % 34.1-44.9 MEAN CORPUSCULAR VOLUME (BEAKER) (test gyza=008) 96.5 fL 79.4-94.8 MEAN CORPUSCULAR HEMOGLOBIN (BEAKER) (test 30.7 pg 25.6-32.2 wynu=768) MEAN CORPUSCULAR HEMOGLOBIN CONC (BEAKER) (test 31.8 GM/DL 32.2-35.5 hhlq=946) RED CELL DISTRIBUTION WIDTH (BEAKER) (test 13.3 % 11.7-14.4 tsdh=356) PLATELET COUNT (BEAKER) (test rymw=579) 200 K/CU MM 150-450 MEAN PLATELET VOLUME (BEAKER) (test xvag=212) 12.8 fL 9.4-12.3 NUCLEATED RED BLOOD CELLS (BEAKER) (test 0 /100 WBC 0-0 mypd=097) NEUTROPHILS RELATIVE PERCENT (BEAKER) (test 65 % ialw=234) LYMPHOCYTES RELATIVE PERCENT (BEAKER) (test 22 % lils=217) MONOCYTES RELATIVE PERCENT (BEAKER) (test 9 % laqk=051) EOSINOPHILS RELATIVE PERCENT (BEAKER) (test 4 % qtfm=752) BASOPHILS RELATIVE PERCENT (BEAKER) (test 0 % bbhz=881) NEUTROPHILS ABSOLUTE COUNT (BEAKER) (test 4.71 K/ L 1.56-6.13 qxfr=974) LYMPHOCYTES ABSOLUTE COUNT (BEAKER) (test 1.58 K/ L 1.18-3.74 keqx=245) MONOCYTES ABSOLUTE COUNT (BEAKER) (test 0.65 K/ L 0.24-0.36 mjwk=847) EOSINOPHILS ABSOLUTE COUNT (BEAKER) (test 0.27 K/ L 0.04-0.36 igrv=451) BASOPHILS ABSOLUTE COUNT (BEAKER) (test 0.03 K/ L 0.01-0.08 werf=863) IMMATURE GRANULOCYTES-RELATIVE PERCENT (BEAKER) 0 % 0-1 (test cpqy=0193) POCT-GLUCOSE [id number] 21:22:00 Test Item Value Reference Range Comments POC-GLUCOSE METER (BEAKER) 279 mg/dL 70-110 TESTED AT [address] (test huld=1774) [place] [address] POCT-GLUCOSE [id number] 17:16:00 Test Item Value Reference Range Comments POC-GLUCOSE METER (BEAKER) 190 mg/dL 70-110 TESTED AT [address] (test rmer=3885) [place] [address] POCT-GLUCOSE [id number] 17:04:00 Test Item Value Reference Range Comments POC-GLUCOSE METER (BEAKER) 197 mg/dL 70-110 TESTED AT [address] (test nuxe=8982) [place] [address] POCT-GLUCOSE [id number] 13:29:00 Test Item Value Reference Range Comments POC-GLUCOSE METER (BEAKER) 190 mg/dL 70-110 TESTED AT [address] (test yhxk=6216) [place] [id number] POCT-GLUCOSE [id number] 08:27:00 Test Item Value Reference Range Comments POC-GLUCOSE METER (BEAKER) 236 mg/dL 70-110 TESTED AT [address] (test vehj=8755) [place] [id number] BASIC METABOLIC [id number] 06:50:00 Test Item Value Reference Range Comments SODIUM (BEAKER) (test 134 meq/L 136-145 qyxv=297) POTASSIUM (BEAKER) (test 4.4 meq/L 3.5-5.1 honc=662) CHLORIDE (BEAKER) (test 99 meq/L 98-107 iroj=043) CO2 (BEAKER) (test 26 meq/L 22-29 pphm=947) BLOOD UREA NITROGEN 33 mg/dL 7-21 (BEAKER) (test ejbw=267) CREATININE (BEAKER) (test 3.65 mg/dL 0.57-1.25 ubae=169) GLUCOSE RANDOM (BEAKER) 185 mg/dL 70-105 (test irvt=722) CALCIUM (BEAKER) (test 8.7 mg/dL 8.4-10.2 ypki=689) EGFR (BEAKER) (test 12 mL/min/1.73 sq m ESTIMATED GFR IS NOT prsa=8923) ACCURATE CREATININE CLEARANCE IN PREDICTING GLOMERULAR FILTRATION RATE. ESTIMATED GFR IS NOT APPLICABLE FOR DIALYSIS PATIENTS. [id number] 06:47:00 Test Item Value Reference Range Comments MAGNESIUM (BEAKER) (test jynf=813) 1.6 mg/dL 1.6-2.6 CBC W/PLT COUNT & AUTO [id number] 06:21:00 Test Item Value Reference Range Comments WHITE BLOOD CELL COUNT (BEAKER) (test dfsm=714) 8.5 K/ L 3.5-10.5 RED BLOOD CELL COUNT (BEAKER) (test xoil=350) 2.41 M/ L 3.93-5.22 HEMOGLOBIN (BEAKER) (test kyye=252) 7.5 GM/DL 11.2-15.7 HEMATOCRIT (BEAKER) (test xoms=570) 23.4 % 34.1-44.9 MEAN CORPUSCULAR VOLUME (BEAKER) (test bpjb=322) 97.1 fL 79.4-94.8 MEAN CORPUSCULAR HEMOGLOBIN (BEAKER) (test 31.1 pg 25.6-32.2 aygf=944) MEAN CORPUSCULAR HEMOGLOBIN CONC (BEAKER) (test 32.1 GM/DL 32.2-35.5 xkct=479) RED CELL DISTRIBUTION WIDTH (BEAKER) (test 13.1 % 11.7-14.4 prgm=136) PLATELET COUNT (BEAKER) (test jrts=616) 200 K/CU MM 150-450 MEAN PLATELET VOLUME (BEAKER) (test wybn=265) 12.8 fL 9.4-12.3 NUCLEATED RED BLOOD CELLS (BEAKER) (test 0 /100 WBC 0-0 xhgh=407) NEUTROPHILS RELATIVE PERCENT (BEAKER) (test 72 % rtqv=358) LYMPHOCYTES RELATIVE PERCENT (BEAKER) (test 16 % hkjv=620) MONOCYTES RELATIVE PERCENT (BEAKER) (test 7 % chef=863) EOSINOPHILS RELATIVE PERCENT (BEAKER) (test 5 % ehbk=143) BASOPHILS RELATIVE PERCENT (BEAKER) (test 1 % oiaz=099) NEUTROPHILS ABSOLUTE COUNT (BEAKER) (test 6.09 K/ L 1.56-6.13 fjey=128) LYMPHOCYTES ABSOLUTE COUNT (BEAKER) (test 1.32 K/ L 1.18-3.74 llgm=728) MONOCYTES ABSOLUTE COUNT (BEAKER) (test 0.59 K/ L 0.24-0.36 rsfn=391) EOSINOPHILS ABSOLUTE COUNT (BEAKER) (test 0.39 K/ L 0.04-0.36 xegx=873) BASOPHILS ABSOLUTE COUNT (BEAKER) (test 0.04 K/ L 0.01-0.08 trii=284) IMMATURE GRANULOCYTES-RELATIVE PERCENT (BEAKER) 1 % 0-1 (test rkvc=2563) POCT-GLUCOSE [id number] 21:03:00 Test Item Value Reference Range Comments POC-GLUCOSE METER (BEAKER) 179 mg/dL 70-110 TESTED AT [address] (test onlh=8781) [place] [id number] POCT-GLUCOSE [id number] 17:36:00 Test Item Value Reference Range Comments POC-GLUCOSE METER (BEAKER) 184 mg/dL 70-110 TESTED AT [address] (test fzej=2406) [facility] [address] POCT-GLUCOSE [id number] 17:15:00 Test Item Value Reference Range Comments POC-GLUCOSE METER (BEAKER) 196 mg/dL 70-110 TESTED AT [address] (test updo=3993) [facility] [address] POCT-GLUCOSE [id number] 12:00:00 Test Item Value Reference Range Comments POC-GLUCOSE METER (BEAKER) 179 mg/dL 70-110 TESTED AT [address] (test xqcp=5568) [facility] [address] POCT-GLUCOSE [id number] 08:12:00 Test Item Value Reference Range Comments POC-GLUCOSE METER (BEAKER) 221 mg/dL 70-110 TESTED AT [facility] [address] [facility] (test lbeo=3591) [facility] [address] BASIC METABOLIC [id number] 07:21:00 Test Item Value Reference Range Comments SODIUM (BEAKER) (test 135 meq/L 136-145 aodl=232) POTASSIUM (BEAKER) (test 4.5 meq/L 3.5-5.1 elny=592) CHLORIDE (BEAKER) (test 99 meq/L 98-107 njcl=086) CO2 (BEAKER) (test 28 meq/L 22-29 tsqk=698) BLOOD UREA NITROGEN 25 mg/dL 7-21 (BEAKER) (test aowi=317) CREATININE (BEAKER) (test 3.07 mg/dL 0.57-1.25 tffw=597) GLUCOSE RANDOM (BEAKER) 192 mg/dL 70-105 (test eccp=760) CALCIUM (BEAKER) (test 8.5 mg/dL 8.4-10.2 nzsb=628) EGFR (BEAKER) (test 15 mL/min/1.73 sq m ESTIMATED GFR IS NOT gxba=1118) ACCURATE CREATININE CLEARANCE IN PREDICTING GLOMERULAR FILTRATION RATE. ESTIMATED GFR IS NOT APPLICABLE FOR DIALYSIS PATIENTS. [id number] 07:20:00 Test Item Value Reference Range Comments PHOSPHORUS (BEAKER) (test ypez=987) 3.6 mg/dL 2.3-4.7 [id number] 07:20:00 Test Item Value Reference Range Comments MAGNESIUM (BEAKER) (test afko=020) 1.7 mg/dL 1.6-2.6 CBC W/PLT COUNT & AUTO [id number] 07:04:00 Test Item Value Reference Range Comments WHITE BLOOD CELL COUNT (BEAKER) (test mpjl=763) 7.8 K/ L 3.5-10.5 RED BLOOD CELL COUNT (BEAKER) (test nvxg=209) 2.30 M/ L 3.93-5.22 HEMOGLOBIN (BEAKER) (test frnm=007) 7.1 GM/DL 11.2-15.7 HEMATOCRIT (BEAKER) (test meaf=563) 22.7 % 34.1-44.9 MEAN CORPUSCULAR VOLUME (BEAKER) (test ntjg=766) 98.7 fL 79.4-94.8 MEAN CORPUSCULAR HEMOGLOBIN (BEAKER) (test 30.9 pg 25.6-32.2 gonp=857) MEAN CORPUSCULAR HEMOGLOBIN CONC (BEAKER) (test 31.3 GM/DL 32.2-35.5 qjqx=926) RED CELL DISTRIBUTION WIDTH (BEAKER) (test 13.3 % 11.7-14.4 skqq=955) PLATELET COUNT (BEAKER) (test qisg=039) 206 K/CU MM 150-450 MEAN PLATELET VOLUME (BEAKER) (test fhqe=578) 12.8 fL 9.4-12.3 NUCLEATED RED BLOOD CELLS (BEAKER) (test 0 /100 WBC 0-0 zlwj=524) NEUTROPHILS RELATIVE PERCENT (BEAKER) (test 64 % ishm=933) LYMPHOCYTES RELATIVE PERCENT (BEAKER) (test 21 % npxq=618) MONOCYTES RELATIVE PERCENT (BEAKER) (test 8 % yijr=973) EOSINOPHILS RELATIVE PERCENT (BEAKER) (test 6 % ikze=561) BASOPHILS RELATIVE PERCENT (BEAKER) (test 1 % nsnu=982) NEUTROPHILS ABSOLUTE COUNT (BEAKER) (test 5.00 K/ L 1.56-6.13 zpwg=238) LYMPHOCYTES ABSOLUTE COUNT (BEAKER) (test 1.66 K/ L 1.18-3.74 dbfu=728) MONOCYTES ABSOLUTE COUNT (BEAKER) (test 0.65 K/ L 0.24-0.36 rxes=202) EOSINOPHILS ABSOLUTE COUNT (BEAKER) (test 0.44 K/ L 0.04-0.36 glnj=151) BASOPHILS ABSOLUTE COUNT (BEAKER) (test 0.05 K/ L 0.01-0.08 pucx=587) IMMATURE GRANULOCYTES-RELATIVE PERCENT (BEAKER) 1 % 0-1 (test zcmg=2119) POCT-GLUCOSE [id number] 21:03:00 Test Item Value Reference Range Comments POC-GLUCOSE METER (BEAKER) 243 mg/dL 70-110 TESTED AT [address] (test acvh=6654) [place] [id number] POCT-GLUCOSE [id number] 18:12:00 Test Item Value Reference Range Comments POC-GLUCOSE METER (BEAKER) 233 mg/dL 70-110 TESTED AT [address] (test jhzn=2547) [place] [address] POCT-GLUCOSE [id number] 12:29:00 Test Item Value Reference Range Comments POC-GLUCOSE METER (BEAKER) 185 mg/dL 70-110 TESTED AT [facility] [address] [facility] (test ccfr=6983) [facility] [address] POCT-GLUCOSE [id number] 07:05:00 Test Item Value Reference Range Comments POC-GLUCOSE METER (BEAKER) 114 mg/dL 70-110 TESTED AT [place] [id number] [facility] (test urzg=4238) [facility] [address] [id number] 06:33:00 Test Item Value Reference Range Comments PHOSPHORUS (BEAKER) (test tcyb=839) 2.6 mg/dL 2.3-4.7 [id number] 06:33:00 Test Item Value Reference Range Comments MAGNESIUM (BEAKER) (test hrwb=305) 1.7 mg/dL 1.6-2.6 COMPREHENSIVE METABOLIC [id number] 06:33:00 Test Item Value Reference Range Comments TOTAL PROTEIN (BEAKER) 6.4 gm/dL 6.0-8.3 (test dncc=687) ALBUMIN (BEAKER) (test 2.8 g/dL 3.5-5.0 neie=2958) ALKALINE PHOSPHATASE 95 U/L 40-150 (BEAKER) (test fzgh=922) BILIRUBIN TOTAL (BEAKER) 0.2 mg/dL 0.2-1.2 (test vqlq=247) SODIUM (BEAKER) (test 138 meq/L 136-145 bomj=585) POTASSIUM (BEAKER) (test 3.9 meq/L 3.5-5.1 hzym=516) CHLORIDE (BEAKER) (test 102 meq/L 98-107 xlwm=077) CO2 (BEAKER) (test 29 meq/L 22-29 hfxd=279) BLOOD UREA NITROGEN 12 mg/dL 7-21 (BEAKER) (test peuw=621) CREATININE (BEAKER) (test 2.08 mg/dL 0.57-1.25 kpvq=324) GLUCOSE RANDOM (BEAKER) 79 mg/dL 70-105 (test yeao=023) CALCIUM (BEAKER) (test 8.3 mg/dL 8.4-10.2 uwmd=722) AST (SGOT) (BEAKER) (test 17 U/L 5-34 mhfr=326) ALT (SGPT) (BEAKER) (test 16 U/L 6-55 kpwv=969) EGFR (BEAKER) (test 24 mL/min/1.73 sq m ESTIMATED GFR IS NOT nenl=5775) ACCURATE CREATININE CLEARANCE IN PREDICTING GLOMERULAR FILTRATION RATE. ESTIMATED GFR IS NOT APPLICABLE FOR DIALYSIS PATIENTS. CBC W/PLT COUNT & AUTO [id number] 06:13:00 Test Item Value Reference Range Comments WHITE BLOOD CELL COUNT (BEAKER) (test reik=932) 8.1 K/ L 3.5-10.5 RED BLOOD CELL COUNT (BEAKER) (test rxvx=553) 2.41 M/ L 3.93-5.22 HEMOGLOBIN (BEAKER) (test bigy=858) 7.4 GM/DL 11.2-15.7 HEMATOCRIT (BEAKER) (test soso=732) 23.7 % 34.1-44.9 MEAN CORPUSCULAR VOLUME (BEAKER) (test gsdl=878) 98.3 fL 79.4-94.8 MEAN CORPUSCULAR HEMOGLOBIN (BEAKER) (test 30.7 pg 25.6-32.2 rwzv=134) MEAN CORPUSCULAR HEMOGLOBIN CONC (BEAKER) (test 31.2 GM/DL 32.2-35.5 nnjb=083) RED CELL DISTRIBUTION WIDTH (BEAKER) (test 13.2 % 11.7-14.4 ndzl=119) PLATELET COUNT (BEAKER) (test vtbd=107) 215 K/CU MM 150-450 MEAN PLATELET VOLUME (BEAKER) (test hvbh=028) 12.5 fL 9.4-12.3 NUCLEATED RED BLOOD CELLS (BEAKER) (test 0 /100 WBC 0-0 oqoa=216) NEUTROPHILS RELATIVE PERCENT (BEAKER) (test 63 % gwws=432) LYMPHOCYTES RELATIVE PERCENT (BEAKER) (test 21 % gcau=492) MONOCYTES RELATIVE PERCENT (BEAKER) (test 11 % npil=983) EOSINOPHILS RELATIVE PERCENT (BEAKER) (test 4 % wozz=712) BASOPHILS RELATIVE PERCENT (BEAKER) (test 1 % acxa=661) NEUTROPHILS ABSOLUTE COUNT (BEAKER) (test 5.10 K/ L 1.56-6.13 jbfz=080) LYMPHOCYTES ABSOLUTE COUNT (BEAKER) (test 1.71 K/ L 1.18-3.74 lkuv=252) MONOCYTES ABSOLUTE COUNT (BEAKER) (test 0.85 K/ L 0.24-0.36 cddr=756) EOSINOPHILS ABSOLUTE COUNT (BEAKER) (test 0.34 K/ L 0.04-0.36 fhhu=360) BASOPHILS ABSOLUTE COUNT (BEAKER) (test 0.05 K/ L 0.01-0.08 etah=755) IMMATURE GRANULOCYTES-RELATIVE PERCENT (BEAKER) 0 % 0-1 (test kijs=2146) CALCIUM, [id number] 05:45:00 Test Item Value Reference Range Comments CALCIUM IONIZED (BEAKER) (test xqiw=841) 1.04 mmol/L 1.12-1.27 PH, BLOOD (BEAKER) (test vqjt=7125) 7.45 POCT-GLUCOSE [id number] 21:16:00 Test Item Value Reference Range Comments POC-GLUCOSE METER (BEAKER) 193 mg/dL 70-110 TESTED AT [address] (test ejty=5085) [facility] [address] POCT-GLUCOSE [id number] 18:58:00 Test Item Value Reference Range Comments POC-GLUCOSE METER (BEAKER) 158 mg/dL 70-110 TESTED AT [address] (test xqhg=8751) [place] [id number] VITAMIN B12 AND [id number] 17:12:00 Test Item Value Reference Range Comments VITAMIN B12 (BEAKER) (test pyjg=683) 720 pg/mL 213-816 FOLATE (BEAKER) (test yegc=308) 10.3 ng/mL >=7.0 [id number] 14:42:00 Test Item Value Reference Range Comments FERRITIN (BEAKER) (test hjij=929) 265 ng/mL 5-275 IRON, TIBC, % SAT. (WITHOUT FERRITIN)[id number] 14:14:00 Test Item Value Reference Range Comments IRON (BEAKER) (test hzzx=899) 34 ug/dL 40-160 TOTAL IRON BINDING CAPACITY (BEAKER) (test 178 ug/dL 250-450 elxj=299) IRON % SATURATION (2) (BEAKER) (test hvbp=2218) 19 % 20-55 POCT-GLUCOSE [id number] 12:25:00 Test Item Value Reference Range Comments POC-GLUCOSE METER (BEAKER) 264 mg/dL 70-110 TESTED AT [facility] [address] [facility] (test zmtl=7221) [facility] [address] POCT-GLUCOSE [id number] 08:00:00 Test Item Value Reference Range Comments POC-GLUCOSE METER (BEAKER) 181 mg/dL 70-110 TESTED AT [facility] [address] [facility] (test xums=8323) [facility] [address] BASIC METABOLIC [id number] 06:49:00 Test Item Value Reference Range Comments SODIUM (BEAKER) (test 137 meq/L 136-145 zsvy=223) POTASSIUM (BEAKER) (test 3.6 meq/L 3.5-5.1 esrn=887) CHLORIDE (BEAKER) (test 100 meq/L 98-107 vgxn=614) CO2 (BEAKER) (test 30 meq/L 22-29 bape=263) BLOOD UREA NITROGEN 22 mg/dL 7-21 (BEAKER) (test grib=765) CREATININE (BEAKER) (test 2.53 mg/dL 0.57-1.25 cyvq=585) GLUCOSE RANDOM (BEAKER) 168 mg/dL 70-105 (test jhbk=494) CALCIUM (BEAKER) (test 8.0 mg/dL 8.4-10.2 mfmz=154) EGFR (BEAKER) (test 19 mL/min/1.73 sq m ESTIMATED GFR IS NOT bptm=9774) ACCURATE CREATININE CLEARANCE IN PREDICTING GLOMERULAR FILTRATION RATE. ESTIMATED GFR IS NOT APPLICABLE FOR DIALYSIS PATIENTS. [id number] 06:37:00 Test Item Value Reference Range Comments PHOSPHORUS (BEAKER) (test qjrp=140) 2.9 mg/dL 2.3-4.7 [id number] 06:37:00 Test Item Value Reference Range Comments MAGNESIUM (BEAKER) (test xhrz=272) 1.8 mg/dL 1.6-2.6 CBC W/PLT COUNT & AUTO [id number] 06:19:00 Test Item Value Reference Range Comments WHITE BLOOD CELL COUNT (BEAKER) (test xiqv=489) 7.6 K/ L 3.5-10.5 RED BLOOD CELL COUNT (BEAKER) (test qgua=984) 2.30 M/ L 3.93-5.22 HEMOGLOBIN (BEAKER) (test qttj=863) 7.0 GM/DL 11.2-15.7 HEMATOCRIT (BEAKER) (test vsgo=782) 22.3 % 34.1-44.9 MEAN CORPUSCULAR VOLUME (BEAKER) (test yjlz=524) 97.0 fL 79.4-94.8 MEAN CORPUSCULAR HEMOGLOBIN (BEAKER) (test 30.4 pg 25.6-32.2 ovxz=400) MEAN CORPUSCULAR HEMOGLOBIN CONC (BEAKER) (test 31.4 GM/DL 32.2-35.5 twvk=703) RED CELL DISTRIBUTION WIDTH (BEAKER) (test 13.2 % 11.7-14.4 umoc=633) PLATELET COUNT (BEAKER) (test mwvj=261) 214 K/CU MM 150-450 MEAN PLATELET VOLUME (BEAKER) (test uxbu=999) 12.4 fL 9.4-12.3 NUCLEATED RED BLOOD CELLS (BEAKER) (test 0 /100 WBC 0-0 xmzg=654) NEUTROPHILS RELATIVE PERCENT (BEAKER) (test 65 % nwep=219) LYMPHOCYTES RELATIVE PERCENT (BEAKER) (test 20 % kdoq=290) MONOCYTES RELATIVE PERCENT (BEAKER) (test 10 % exse=952) EOSINOPHILS RELATIVE PERCENT (BEAKER) (test 3 % fxji=689) BASOPHILS RELATIVE PERCENT (BEAKER) (test 0 % kwsd=297) NEUTROPHILS ABSOLUTE COUNT (BEAKER) (test 4.97 K/ L 1.56-6.13 toxr=488) LYMPHOCYTES ABSOLUTE COUNT (BEAKER) (test 1.54 K/ L 1.18-3.74 qsib=469) MONOCYTES ABSOLUTE COUNT (BEAKER) (test 0.79 K/ L 0.24-0.36 xhfx=880) EOSINOPHILS ABSOLUTE COUNT (BEAKER) (test 0.26 K/ L 0.04-0.36 flxt=783) BASOPHILS ABSOLUTE COUNT (BEAKER) (test 0.03 K/ L 0.01-0.08 vrwt=540) IMMATURE GRANULOCYTES-RELATIVE PERCENT (BEAKER) 1 % 0-1 (test kumx=9880) POCT-GLUCOSE [id number] 21:09:00 Test Item Value Reference Range Comments POC-GLUCOSE METER (BEAKER) 181 mg/dL 70-110 TESTED AT [facility] [address] [facility] (test bylf=7364) [facility] [address] POCT-GLUCOSE [id number] 20:36:00 Test Item Value Reference Range Comments POC-GLUCOSE METER (BEAKER) 231 mg/dL 70-110 TESTED AT [place] [id number] [facility] (test kqkm=7008) [facility] [address] POCT-GLUCOSE [id number] 12:46:00 Test Item Value Reference Range Comments POC-GLUCOSE METER (BEAKER) 180 mg/dL 70-110 TESTED AT [address] (test jqzf=5173) [place] [id number] POCT-GLUCOSE [id number] 08:22:00 Test Item Value Reference Range Comments POC-GLUCOSE METER (BEAKER) 157 mg/dL 70-110 TESTED AT [address] (test wkoo=9789) [facility] [address] BASIC METABOLIC [id number] 07:18:00 Test Item Value Reference Range Comments SODIUM (BEAKER) (test 136 meq/L 136-145 fiue=342) POTASSIUM (BEAKER) (test 3.5 meq/L 3.5-5.1 qqvz=450) CHLORIDE (BEAKER) (test 97 meq/L 98-107 ajhs=692) CO2 (BEAKER) (test 26 meq/L 22-29 emca=363) BLOOD UREA NITROGEN 46 mg/dL 7-21 (BEAKER) (test mrrq=614) CREATININE (BEAKER) (test 3.60 mg/dL 0.57-1.25 oudx=288) GLUCOSE RANDOM (BEAKER) 129 mg/dL 70-105 (test gywf=250) CALCIUM (BEAKER) (test 8.1 mg/dL 8.4-10.2 lvwe=652) EGFR (BEAKER) (test 13 mL/min/1.73 sq m ESTIMATED GFR IS NOT fprt=3439) ACCURATE CREATININE CLEARANCE IN PREDICTING GLOMERULAR FILTRATION RATE. ESTIMATED GFR IS NOT APPLICABLE FOR DIALYSIS PATIENTS. [id number] 07:11:00 Test Item Value Reference Range Comments PHOSPHORUS (BEAKER) (test dsra=087) 5.1 mg/dL 2.3-4.7 [id number] 07:11:00 Test Item Value Reference Range Comments MAGNESIUM (BEAKER) (test pvvr=236) 1.8 mg/dL 1.6-2.6 CALCIUM, [id number] 06:46:00 Test Item Value Reference Range Comments CALCIUM IONIZED (BEAKER) (test qztg=104) 0.99 mmol/L 1.12-1.27 PH, BLOOD (BEAKER) (test yhwv=1600) 7.43 CBC W/PLT COUNT & AUTO [id number] 06:43:00 Test Item Value Reference Range Comments WHITE BLOOD CELL COUNT (BEAKER) (test ucse=272) 7.2 K/ L 3.5-10.5 RED BLOOD CELL COUNT (BEAKER) (test nkji=884) 2.48 M/ L 3.93-5.22 HEMOGLOBIN (BEAKER) (test bqlh=087) 7.5 GM/DL 11.2-15.7 HEMATOCRIT (BEAKER) (test kqlc=099) 23.5 % 34.1-44.9 MEAN CORPUSCULAR VOLUME (BEAKER) (test nkrn=941) 94.8 fL 79.4-94.8 MEAN CORPUSCULAR HEMOGLOBIN (BEAKER) (test 30.2 pg 25.6-32.2 sykv=023) MEAN CORPUSCULAR HEMOGLOBIN CONC (BEAKER) (test 31.9 GM/DL 32.2-35.5 xdht=661) RED CELL DISTRIBUTION WIDTH (BEAKER) (test 13.0 % 11.7-14.4 vvie=192) PLATELET COUNT (BEAKER) (test ztgw=576) 233 K/CU MM 150-450 MEAN PLATELET VOLUME (BEAKER) (test hlhv=191) 12.5 fL 9.4-12.3 NUCLEATED RED BLOOD CELLS (BEAKER) (test 0 /100 WBC 0-0 etvo=947) NEUTROPHILS RELATIVE PERCENT (BEAKER) (test 66 % qkfu=512) LYMPHOCYTES RELATIVE PERCENT (BEAKER) (test 18 % yjhx=953) MONOCYTES RELATIVE PERCENT (BEAKER) (test 12 % ppdh=825) EOSINOPHILS RELATIVE PERCENT (BEAKER) (test 3 % mswj=378) BASOPHILS RELATIVE PERCENT (BEAKER) (test 1 % pths=722) NEUTROPHILS ABSOLUTE COUNT (BEAKER) (test 4.73 K/ L 1.56-6.13 whhy=516) LYMPHOCYTES ABSOLUTE COUNT (BEAKER) (test 1.33 K/ L 1.18-3.74 bzkw=908) MONOCYTES ABSOLUTE COUNT (BEAKER) (test 0.89 K/ L 0.24-0.36 zrkq=749) EOSINOPHILS ABSOLUTE COUNT (BEAKER) (test 0.19 K/ L 0.04-0.36 wvcs=561) BASOPHILS ABSOLUTE COUNT (BEAKER) (test 0.05 K/ L 0.01-0.08 pbxf=141) IMMATURE GRANULOCYTES-RELATIVE PERCENT (BEAKER) 0 % 0-1 (test tuwr=9563) BLOOD [id number] 00:00:00 Test Item Value Reference Range Comments CULTURE (BEAKER) (test ewfi=6496) No growth in 5 days BLOOD [id number] 00:00:00 Test Item Value Reference Range Comments CULTURE (BEAKER) (test ekuz=7583) No growth in 5 days HEPATITIS B [id number] 20:32:00 Test Item Value Reference Range Comments HEPATITIS B CORE TOTAL ANTIBODY (BEAKER) (test Nonreactive Nonreactive snba=915) HEPATITIS B SURFACE ANTIBODY (BEAKER) (test 20.3 mIU/mL <8.0 mpqz=166) HEPATITIS B SURFACE ANTIGEN (2) (BEAKER) (test Nonreactive Nonreactive afei=9163) POCT-GLUCOSE [id number] 18:59:00 Test Item Value Reference Range Comments POC-GLUCOSE METER (BEAKER) 146 mg/dL 70-110 TESTED AT [address] (test crmt=5710) [facility] [address] ANG, NON-TUNNELED CATH >5 Y.O. [id number] 16:28:00Reason for exam:-> need hdFINAL REPORT Procedure: Placement of right internal jugular vein Isma catheter, 02/06/2018. History: Need for dialysis Anesthesia: 1% lidocaine Sedation: Zero mg Versed, zero mcg fentanyl. The patient was monitored continuously with pulse oximetry and electrocardiography bythe attending physician and registered nurse. ASA scale three. Airway okay. Modality: Ultrasound andfluoroscopy, fluoroscopy time: 0.1 minutes, total dose: Two mGy, reference air kerma method Approach: Right internal jugular vein. Technique: This procedure was performed using all elements sterile barrier technique. Ultrasound was used to examine the veins of the neck. A patent right internal jugular vein was identified. Images of the patent vein were recorded on PACS. After obtaining written informed consent, and using ultrasound guidance , the right internal jugular vein was accessed percutaneously. A Isma catheter was placed with fluoroscopic guidance with its tip at the junction of the superior vena cava and right atrium. The catheter was secured in place by means of sutures. The patient tolerated the procedure well. Estimated blood loss was less than 10 ml. Conclusion: Placement of rightinternal jugular Isma catheter. Signed: Carrie Quinteros MDReport Verified Date/Time: 2017 16:28:37 Reading Location: [place] [id number] Angio Body Reading Room EOSINOPHIL SMEAR, [id number] 08:57:00 Test Item Value Reference Range Comments EOSINOPHIL SMEAR, URINE (BEAKER) Rare EOS=less than 5% WBCs No EOS seen (test vdyp=8168) seen are EOS POCT-GLUCOSE [id number] 07:29:00 Test Item Value Reference Range Comments POC-GLUCOSE METER (BEAKER) 143 mg/dL 70-110 TESTED AT [address] (test kagk=3260) [facility] [address] PROTHROMBIN [id number] 06:24:00 Test Item Value Reference Range Comments PROTIME (BEAKER) (test uinw=297) 16.0 seconds 11.7-14.7 INR (BEAKER) (test datx=611) 1.3 <=5.9 RECOMMENDED COUMADIN/WARFARIN INR THERAPY RANGESSTANDARD DOSE: 2.0 - 3.0 Includes: PROPHYLAXIS forvenous thrombosis, systemic embolization; TREATMENT for venous thrombosis and/or pulmonary embolus.HIGH RISK: Target INR is 2.5-3.5 for patients with mechanical heart valves.[id number] 06:18:00 Test Item Value Reference Range Comments PHOSPHORUS (BEAKER) (test evzz=468) 9.4 mg/dL 2.3-4.7 [id number] 06:14:00 Test Item Value Reference Range Comments MAGNESIUM (BEAKER) (test jppa=037) 2.0 mg/dL 1.6-2.6 CREATINE KINASE (CK)2018-02-06 06:14:00 Test Item Value Reference Range Comments CREATINE KINASE TOTAL (BEAKER) (test nbcv=473) 21 U/L 29-200 COMPREHENSIVE METABOLIC [id number] 06:14:00 Test Item Value Reference Range Comments TOTAL PROTEIN (BEAKER) 6.3 gm/dL 6.0-8.3 (test hjrn=392) ALBUMIN (BEAKER) (test 2.7 g/dL 3.5-5.0 kxhw=8574) ALKALINE PHOSPHATASE 101 U/L 40-150 (BEAKER) (test qnej=425) BILIRUBIN TOTAL (BEAKER) 0.3 mg/dL 0.2-1.2 (test yfwn=599) SODIUM (BEAKER) (test 135 meq/L 136-145 ojbx=378) POTASSIUM (BEAKER) (test 3.8 meq/L 3.5-5.1 bzji=093) CHLORIDE (BEAKER) (test 91 meq/L 98-107 rjyd=205) CO2 (BEAKER) (test 28 meq/L 22-29 hkdz=511) BLOOD UREA NITROGEN 92 mg/dL 7-21 (BEAKER) (test nydt=744) CREATININE (BEAKER) (test 5.56 mg/dL 0.57-1.25 laze=680) GLUCOSE RANDOM (BEAKER) 137 mg/dL 70-105 (test kcmz=162) CALCIUM (BEAKER) (test 8.4 mg/dL 8.4-10.2 yqos=402) AST (SGOT) (BEAKER) (test 11 U/L 5-34 ulwe=694) ALT (SGPT) (BEAKER) (test 10 U/L 6-55 wisn=379) EGFR (BEAKER) (test 8 mL/min/1.73 sq m ESTIMATED GFR IS NOT bqky=3994) ACCURATE CREATININE CLEARANCE IN PREDICTING GLOMERULAR FILTRATION RATE. ESTIMATED GFR IS NOT APPLICABLE FOR DIALYSIS PATIENTS. B-TYPE NATRIURETIC FACTOR (BNP)2018-02-06 06:13:00 Test Item Value Reference Range Comments B-TYPE NATRIURETIC PEPTIDE (BEAKER) (test 757 pg/mL 0-100 nwch=204) CALCIUM, [id number] 05:59:00 Test Item Value Reference Range Comments CALCIUM IONIZED (BEAKER) (test krvk=274) 0.97 mmol/L 1.12-1.27 PH, BLOOD (BEAKER) (test hnce=4865) 7.42 CBC W/PLT COUNT & AUTO [id number] 05:50:00 Test Item Value Reference Range Comments WHITE BLOOD CELL COUNT (BEAKER) (test azqc=458) 6.5 K/ L 3.5-10.5 RED BLOOD CELL COUNT (BEAKER) (test lxyf=414) 2.54 M/ L 3.93-5.22 HEMOGLOBIN (BEAKER) (test ceue=162) 7.8 GM/DL 11.2-15.7 HEMATOCRIT (BEAKER) (test wyjl=467) 23.4 % 34.1-44.9 MEAN CORPUSCULAR VOLUME (BEAKER) (test lzif=980) 92.1 fL 79.4-94.8 MEAN CORPUSCULAR HEMOGLOBIN (BEAKER) (test 30.7 pg 25.6-32.2 uowc=332) MEAN CORPUSCULAR HEMOGLOBIN CONC (BEAKER) (test 33.3 GM/DL 32.2-35.5 nozj=792) RED CELL DISTRIBUTION WIDTH (BEAKER) (test 12.8 % 11.7-14.4 mist=977) PLATELET COUNT (BEAKER) (test xwpx=591) 244 K/CU MM 150-450 MEAN PLATELET VOLUME (BEAKER) (test rnjj=084) 12.3 fL 9.4-12.3 NUCLEATED RED BLOOD CELLS (BEAKER) (test 0 /100 WBC 0-0 ycas=469) NEUTROPHILS RELATIVE PERCENT (BEAKER) (test 70 % gsdt=627) LYMPHOCYTES RELATIVE PERCENT (BEAKER) (test 17 % yxse=219) MONOCYTES RELATIVE PERCENT (BEAKER) (test 10 % tlfq=078) EOSINOPHILS RELATIVE PERCENT (BEAKER) (test 3 % rnll=342) BASOPHILS RELATIVE PERCENT (BEAKER) (test 1 % mcui=027) NEUTROPHILS ABSOLUTE COUNT (BEAKER) (test 4.56 K/ L 1.56-6.13 moix=275) LYMPHOCYTES ABSOLUTE COUNT (BEAKER) (test 1.08 K/ L 1.18-3.74 qgfm=397) MONOCYTES ABSOLUTE COUNT (BEAKER) (test 0.65 K/ L 0.24-0.36 kjij=579) EOSINOPHILS ABSOLUTE COUNT (BEAKER) (test 0.17 K/ L 0.04-0.36 qwfc=618) BASOPHILS ABSOLUTE COUNT (BEAKER) (test 0.05 K/ L 0.01-0.08 dhww=465) IMMATURE GRANULOCYTES-RELATIVE PERCENT (BEAKER) 1 % 0-1 (test xuye=8097) URINALYSIS W/ [id number] 02:20:00 Test Item Value Reference Range Comments COLOR (BEAKER) (test grho=162) Light Yellow CLARITY (BEAKER) (test pdmm=861) Clear SPECIFIC GRAVITY UA (BEAKER) (test wvei=863) 1.008 1.001-1.035 PH UA (BEAKER) (test ocgi=573) 6.5 5.0-8.0 PROTEIN UA (BEAKER) (test frfx=286) 70 mg/dL Negative GLUCOSE UA (BEAKER) (test upml=093) 50 mg/dL Negative KETONES UA (BEAKER) (test sttm=157) Trace Negative BILIRUBIN UA (BEAKER) (test kmzp=769) Negative Negative BLOOD UA (BEAKER) (test acaw=619) Negative Negative NITRITE UA (BEAKER) (test foyr=040) Negative Negative LEUKOCYTE ESTERASE UA (BEAKER) (test bsix=461) Moderate Negative UROBILINOGEN UA (BEAKER) (test dxyr=758) 0.2 mg/dL 0.2-1.0 RBC UA (BEAKER) (test upbc=478) 2 /HPF WBC UA (BEAKER) (test sgfg=763) 21 /HPF BACTERIA (BEAKER) (test eelx=007) Occasional MUCUS (BEAKER) (test oabr=9305) Rare SQUAMOUS EPITHELIAL (BEAKER) (test enwv=043) 1 /HPF HYALINE CASTS (BEAKER) (test qtrb=009) 1 /LPF GRANULAR CASTS (BEAKER) (test htge=843) 1 /LPF YEAST (BEAKER) (test zlmf=0475) Occasional SOURCE(BEAKER) (test veyn=4374) Urine, Byrd CREATININE, RANDOM [id number] 01:22:00 Test Item Value Reference Range Comments CREATININE URINE (BEAKER) (test mxwp=109) 28.2 mg/dL Reference Range: No NormalsPROTEIN, RANDOM [id number] 01:22:00 Test Item Value Reference Range Comments PROTEIN, URINE (BEAKER) (test apxz=3676) 80 mg/dL 0-14 SODIUM, RANDOM [id number] 01:22:00 Test Item Value Reference Range Comments SODIUM URINE (BEAKER) (test lszv=695) 65 meq/L Reference Range: No NormalsPOCT-GLUCOSE [id number] 22:17:00 Test Item Value Reference Range Comments POC-GLUCOSE METER (BEAKER) 162 mg/dL 70-110 TESTED AT [address] (test ldcq=4742) [place] [address] RAD, CHEST, 1 VIEW, NON [id number] 20:31:00Reason for exam:->edemaShould this be performed at the bedside?->YesFINAL REPORT HISTORY : edema. Comparison: 02/01/2018 Comment: Single portable view of the chest was obtained. The cardiac silhouette size is enlarged. There are findings of pulmonary venous congestion. Interstitial prominence may represent interstitial edema. Pneumonitis cannot be excluded. No pneumothorax or pleural effusion is seen. There is some nonspecific patchy bibasilar airspace disease which may represent atelectasis. Pneumonitis or aspiration cannot be excluded. A right-sided PICC line catheter is in place with the tip projecting over the cavoatrial junction/right atrium. Signed: Kenan Elizabeth MDReport Verified Date/ Time: 02/05/2018 20:31:31 Reading Location: [address] Consult Reading Room POCT- GLUCOSE [id number] 17:16:00 Test Item Value Reference Range Comments POC-GLUCOSE METER (BEAKER) 204 mg/dL 70-110 TESTED AT [address] (test zjhy=3886) [place] [id number] POCT-GLUCOSE [id number] 12:28:00 Test Item Value Reference Range Comments POC-GLUCOSE METER (BEAKER) 214 mg/dL 70-110 TESTED AT [address] (test bfxv=0802) [place] [id number] BASIC METABOLIC [id number] 07:47:00 Test Item Value Reference Range Comments SODIUM (BEAKER) (test 133 meq/L 136-145 tldn=055) POTASSIUM (BEAKER) (test 4.3 meq/L 3.5-5.1 ntij=211) CHLORIDE (BEAKER) (test 93 meq/L 98-107 piav=187) CO2 (BEAKER) (test 22 meq/L 22-29 blpv=666) BLOOD UREA NITROGEN 97 mg/dL 7-21 (BEAKER) (test sody=895) CREATININE (BEAKER) (test 5.21 mg/dL 0.57-1.25 zmdf=330) GLUCOSE RANDOM (BEAKER) 152 mg/dL 70-105 (test oaos=651) CALCIUM (BEAKER) (test 8.3 mg/dL 8.4-10.2 ziaf=411) EGFR (BEAKER) (test 8 mL/min/1.73 sq m ESTIMATED GFR IS NOT zomj=1668) ACCURATE CREATININE CLEARANCE IN PREDICTING GLOMERULAR FILTRATION RATE. ESTIMATED GFR IS NOT APPLICABLE FOR DIALYSIS PATIENTS. POCT-GLUCOSE [id number] 07:32:00 Test Item Value Reference Range Comments POC-GLUCOSE METER (BEAKER) 172 mg/dL 70-110 TESTED AT [facility] [address] [facility] (test garw=0396) [facility] [address] [id number] 07:24:00 Test Item Value Reference Range Comments MAGNESIUM (BEAKER) (test cmkf=164) 2.0 mg/dL 1.6-2.6 CBC W/PLT COUNT & AUTO [id number] 07:07:00 Test Item Value Reference Range Comments WHITE BLOOD CELL COUNT (BEAKER) (test uyry=432) 5.9 K/ L 3.5-10.5 RED BLOOD CELL COUNT (BEAKER) (test wbfi=909) 2.49 M/ L 3.93-5.22 HEMOGLOBIN (BEAKER) (test rawi=757) 7.7 GM/DL 11.2-15.7 HEMATOCRIT (BEAKER) (test xamh=988) 23.0 % 34.1-44.9 MEAN CORPUSCULAR VOLUME (BEAKER) (test vpdq=388) 92.4 fL 79.4-94.8 MEAN CORPUSCULAR HEMOGLOBIN (BEAKER) (test 30.9 pg 25.6-32.2 kilx=987) MEAN CORPUSCULAR HEMOGLOBIN CONC (BEAKER) (test 33.5 GM/DL 32.2-35.5 madx=250) RED CELL DISTRIBUTION WIDTH (BEAKER) (test 12.7 % 11.7-14.4 dlsf=822) PLATELET COUNT (BEAKER) (test btom=304) 251 K/CU MM 150-450 MEAN PLATELET VOLUME (BEAKER) (test kxog=418) 12.1 fL 9.4-12.3 NUCLEATED RED BLOOD CELLS (BEAKER) (test 0 /100 WBC 0-0 wsgj=103) NEUTROPHILS RELATIVE PERCENT (BEAKER) (test 66 % wwwl=089) LYMPHOCYTES RELATIVE PERCENT (BEAKER) (test 21 % nfny=211) MONOCYTES RELATIVE PERCENT (BEAKER) (test 11 % giui=266) EOSINOPHILS RELATIVE PERCENT (BEAKER) (test 2 % jnih=734) BASOPHILS RELATIVE PERCENT (BEAKER) (test 1 % fkya=419) NEUTROPHILS ABSOLUTE COUNT (BEAKER) (test 3.87 K/ L 1.56-6.13 alcc=867) LYMPHOCYTES ABSOLUTE COUNT (BEAKER) (test 1.23 K/ L 1.18-3.74 qguv=439) MONOCYTES ABSOLUTE COUNT (BEAKER) (test 0.63 K/ L 0.24-0.36 lwnb=734) EOSINOPHILS ABSOLUTE COUNT (BEAKER) (test 0.12 K/ L 0.04-0.36 mivi=094) BASOPHILS ABSOLUTE COUNT (BEAKER) (test 0.05 K/ L 0.01-0.08 hzgy=089) IMMATURE GRANULOCYTES-RELATIVE PERCENT (BEAKER) 0 % 0-1 (test rshn=6356) POCT-GLUCOSE [id number] 20:54:00 Test Item Value Reference Range Comments POC-GLUCOSE METER (BEAKER) 172 mg/dL 70-110 TESTED AT [address] (test znyu=1185) [facility] [address] POCT-GLUCOSE [id number] 18:59:00 Test Item Value Reference Range Comments POC-GLUCOSE METER (BEAKER) 182 mg/dL 70-110 TESTED AT [address] (test uthd=4347) [facility] [address] POCT-GLUCOSE [id number] 13:26:00 Test Item Value Reference Range Comments POC-GLUCOSE METER (BEAKER) 213 mg/dL 70-110 TESTED AT [address] (test xkao=7798) [facility] [address] POCT-GLUCOSE [id number] 08:37:00 Test Item Value Reference Range Comments POC-GLUCOSE METER (BEAKER) 192 mg/dL 70-110 TESTED AT [address] (test kopn=5396) [facility] [address] BASIC METABOLIC [id number] 06:57:00 Test Item Value Reference Range Comments SODIUM (BEAKER) (test 130 meq/L 136-145 taia=787) POTASSIUM (BEAKER) (test 4.6 meq/L 3.5-5.1 kzyb=029) CHLORIDE (BEAKER) (test 95 meq/L 98-107 tsog=409) CO2 (BEAKER) (test 22 meq/L 22-29 yjwu=211) BLOOD UREA NITROGEN 98 mg/dL 7-21 (BEAKER) (test ypnn=870) CREATININE (BEAKER) (test 4.85 mg/dL 0.57-1.25 ixaq=951) GLUCOSE RANDOM (BEAKER) 172 mg/dL 70-105 (test czfa=600) CALCIUM (BEAKER) (test 8.1 mg/dL 8.4-10.2 hhqv=555) EGFR (BEAKER) (test 9 mL/min/1.73 sq m ESTIMATED GFR IS NOT ptat=5493) ACCURATE CREATININE CLEARANCE IN PREDICTING GLOMERULAR FILTRATION RATE. ESTIMATED GFR IS NOT APPLICABLE FOR DIALYSIS PATIENTS. [id number] 06:52:00 Test Item Value Reference Range Comments MAGNESIUM (BEAKER) (test fjid=170) 2.0 mg/dL 1.6-2.6 CBC W/PLT COUNT & AUTO [id number] 06:52:00 Test Item Value Reference Range Comments WHITE BLOOD CELL COUNT (BEAKER) (test tjdp=295) 5.5 K/ L 3.5-10.5 RED BLOOD CELL COUNT (BEAKER) (test pddi=177) 2.36 M/ L 3.93-5.22 HEMOGLOBIN (BEAKER) (test jtia=212) 7.2 GM/DL 11.2-15.7 HEMATOCRIT (BEAKER) (test qjgm=771) 21.9 % 34.1-44.9 MEAN CORPUSCULAR VOLUME (BEAKER) (test hbln=458) 92.8 fL 79.4-94.8 MEAN CORPUSCULAR HEMOGLOBIN (BEAKER) (test 30.5 pg 25.6-32.2 tgya=003) MEAN CORPUSCULAR HEMOGLOBIN CONC (BEAKER) (test 32.9 GM/DL 32.2-35.5 nnvn=752) RED CELL DISTRIBUTION WIDTH (BEAKER) (test 13.0 % 11.7-14.4 idju=681) PLATELET COUNT (BEAKER) (test nkuy=495) 242 K/CU MM 150-450 MEAN PLATELET VOLUME (BEAKER) (test qiqq=719) 11.8 fL 9.4-12.3 NUCLEATED RED BLOOD CELLS (BEAKER) (test 0 /100 WBC 0-0 dlvt=144) NEUTROPHILS RELATIVE PERCENT (BEAKER) (test 56 % xaib=977) LYMPHOCYTES RELATIVE PERCENT (BEAKER) (test 26 % sspo=750) MONOCYTES RELATIVE PERCENT (BEAKER) (test 12 % eqyq=230) EOSINOPHILS RELATIVE PERCENT (BEAKER) (test 6 % jqko=208) BASOPHILS RELATIVE PERCENT (BEAKER) (test 1 % dhhe=020) NEUTROPHILS ABSOLUTE COUNT (BEAKER) (test 3.07 K/ L 1.56-6.13 aklb=889) LYMPHOCYTES ABSOLUTE COUNT (BEAKER) (test 1.45 K/ L 1.18-3.74 jhhu=245) MONOCYTES ABSOLUTE COUNT (BEAKER) (test 0.64 K/ L 0.24-0.36 thcz=287) EOSINOPHILS ABSOLUTE COUNT (BEAKER) (test 0.31 K/ L 0.04-0.36 wlkj=574) BASOPHILS ABSOLUTE COUNT (BEAKER) (test 0.04 K/ L 0.01-0.08 wtjx=059) IMMATURE GRANULOCYTES-RELATIVE PERCENT (BEAKER) 0 % 0-1 (test rvwm=0465) POCT-GLUCOSE [id number] 21:09:00 Test Item Value Reference Range Comments POC-GLUCOSE METER (BEAKER) 217 mg/dL 70-110 TESTED AT [address] (test vuev=1923) [place] [id number] POCT-GLUCOSE [id number] 17:47:00 Test Item Value Reference Range Comments POC-GLUCOSE METER (BEAKER) 172 mg/dL 70-110 TESTED AT [address] (test fbft=5319) [place] [id number] POCT-GLUCOSE [id number] 12:22:00 Test Item Value Reference Range Comments POC-GLUCOSE METER (BEAKER) 228 mg/dL 70-110 TESTED AT [address] (test aasn=2685) [place] [address] VANCOMYCIN LEVEL, [id number] 12:13:00 Test Item Value Reference Range Comments VANCOMYCIN RANDOM (BEAKER) (test jzxs=886) 20.7 ug/mL Reference Range: No NormalsB-TYPE NATRIURETIC FACTOR (BNP)2018-02-03 12:11:00 Test Item Value Reference Range Comments B-TYPE NATRIURETIC PEPTIDE (BEAKER) (test 434 pg/mL 0-100 fenh=904) U/S, RENAL WITH [id number] 11:13:00Reason for exam:->renal failureFINAL REPORT Renal ultrasound and Duplex Doppler ultrasound of kidneys dated 02/03/2018 Comment: Real-time transabdominal renal ultrasound was performed.Right kidney measures 10.7 x 6.4 x 6.7 cm. Left kidney measures 11.8 x 7.5 x 6.7 cm. Right renal cortex measures 1.9 cm. Left renal cortex measures 1.7 cm. Echogenicity of both renal parenchyma is normal. No hydronephrosis, solid or cystic mass seen. The urinary bladder is contracted. Color Doppler and spectral ultrasounddemonstrates patent main renal artery and vein bilaterally.The resistive indices of the right upper,middle, and inferior intralobar arteries are 0.84, 0.84, and 0.85 respectively. The resistive indices of the left upper, middle, and inferior intralobar arteries are 0.82, 0.86, and 0.84 respectively. Impression: 1. Unremarkable renal ultrasound.2. Abnormal Doppler of the kidneys with elevated resistive indicis. Signed: Clovis Fischer MDReport Verified Date/Time: 02/03/2018 11:13:52 Reading Location: [facility] [id number] [place] Body Reading Room POCT-GLUCOSE [id number] 09:01:00 Test Item Value Reference Range Comments POC-GLUCOSE METER (BEAKER) 168 mg/dL 70-110 TESTED AT [facility] [address] [place] [address] (test tebk=7492) [facility] [address] BASIC METABOLIC [id number] 07:10:00 Test Item Value Reference Range Comments SODIUM (BEAKER) (test 128 meq/L 136-145 vuxt=432) POTASSIUM (BEAKER) (test 5.0 meq/L 3.5-5.1 esed=702) CHLORIDE (BEAKER) (test 100 meq/L 98-107 jfyh=499) CO2 (BEAKER) (test 15 meq/L 22-29 jrdp=692) BLOOD UREA NITROGEN 98 mg/dL 7-21 (BEAKER) (test vsyb=962) CREATININE (BEAKER) (test 4.23 mg/dL 0.57-1.25 dwpy=568) GLUCOSE RANDOM (BEAKER) 163 mg/dL 70-105 (test ioyj=861) CALCIUM (BEAKER) (test 8.1 mg/dL 8.4-10.2 pbhz=037) EGFR (BEAKER) (test 11 mL/min/1.73 sq m ESTIMATED GFR IS NOT swbb=7233) ACCURATE CREATININE CLEARANCE IN PREDICTING GLOMERULAR FILTRATION RATE. ESTIMATED GFR IS NOT APPLICABLE FOR DIALYSIS PATIENTS. [id number] 07:08:00 Test Item Value Reference Range Comments MAGNESIUM (BEAKER) (test jqea=339) 2.1 mg/dL 1.6-2.6 CBC W/PLT COUNT & AUTO [id number] 05:55:00 Test Item Value Reference Range Comments WHITE BLOOD CELL COUNT (BEAKER) (test idxy=172) 6.6 K/ L 3.5-10.5 RED BLOOD CELL COUNT (BEAKER) (test isne=024) 2.58 M/ L 3.93-5.22 HEMOGLOBIN (BEAKER) (test opvc=027) 8.0 GM/DL 11.2-15.7 HEMATOCRIT (BEAKER) (test pakr=937) 24.6 % 34.1-44.9 MEAN CORPUSCULAR VOLUME (BEAKER) (test dmip=747) 95.3 fL 79.4-94.8 MEAN CORPUSCULAR HEMOGLOBIN (BEAKER) (test 31.0 pg 25.6-32.2 bfwv=060) MEAN CORPUSCULAR HEMOGLOBIN CONC (BEAKER) (test 32.5 GM/DL 32.2-35.5 rpmf=091) RED CELL DISTRIBUTION WIDTH (BEAKER) (test 13.0 % 11.7-14.4 groh=334) PLATELET COUNT (BEAKER) (test mdcj=218) 293 K/CU MM 150-450 MEAN PLATELET VOLUME (BEAKER) (test awnj=095) 11.4 fL 9.4-12.3 NUCLEATED RED BLOOD CELLS (BEAKER) (test 0 /100 WBC 0-0 jytt=141) NEUTROPHILS RELATIVE PERCENT (BEAKER) (test 60 % ymeb=898) LYMPHOCYTES RELATIVE PERCENT (BEAKER) (test 24 % bxys=391) MONOCYTES RELATIVE PERCENT (BEAKER) (test 10 % wtzk=963) EOSINOPHILS RELATIVE PERCENT (BEAKER) (test 5 % uegh=980) BASOPHILS RELATIVE PERCENT (BEAKER) (test 1 % rjpk=751) NEUTROPHILS ABSOLUTE COUNT (BEAKER) (test 3.96 K/ L 1.56-6.13 qztx=728) LYMPHOCYTES ABSOLUTE COUNT (BEAKER) (test 1.58 K/ L 1.18-3.74 pjve=818) MONOCYTES ABSOLUTE COUNT (BEAKER) (test 0.68 K/ L 0.24-0.36 eouf=922) EOSINOPHILS ABSOLUTE COUNT (BEAKER) (test 0.30 K/ L 0.04-0.36 zuzh=217) BASOPHILS ABSOLUTE COUNT (BEAKER) (test 0.04 K/ L 0.01-0.08 anwj=202) IMMATURE GRANULOCYTES-RELATIVE PERCENT (BEAKER) 1 % 0-1 (test cmxs=9014) POCT-GLUCOSE [id number] 21:31:00 Test Item Value Reference Range Comments POC-GLUCOSE METER (BEAKER) 230 mg/dL 70-110 TESTED AT [address] (test zknv=6542) [place] [id number] POCT-GLUCOSE [id number] 17:21:00 Test Item Value Reference Range Comments POC-GLUCOSE METER (BEAKER) 178 mg/dL 70-110 TESTED AT [address] (test gvux=8193) [place] [address] SODIUM, RANDOM [id number] 16:59:00 Test Item Value Reference Range Comments SODIUM URINE (BEAKER) (test rcdh=156) 41 meq/L Reference Range: No NormalsCREATININE, RANDOM [id number] 16:58:00 Test Item Value Reference Range Comments CREATININE URINE (BEAKER) (test flhn=506) 36.7 mg/dL Reference Range: No NormalsURINALYSIS W/ [id number] 15:32:00 Test Item Value Reference Range Comments COLOR (BEAKER) (test rgsd=130) Light Yellow CLARITY (BEAKER) (test vpyh=693) Hazy SPECIFIC GRAVITY UA (BEAKER) (test msdp=814) 1.010 1.001-1.035 PH UA (BEAKER) (test bpvd=365) 5.5 5.0-8.0 PROTEIN UA (BEAKER) (test spra=011) 100 mg/dL Negative GLUCOSE UA (BEAKER) (test qjrq=079) 70 mg/dL Negative KETONES UA (BEAKER) (test emhx=511) Negative Negative BILIRUBIN UA (BEAKER) (test prkv=750) Negative Negative BLOOD UA (BEAKER) (test gezf=153) Small Negative NITRITE UA (BEAKER) (test luax=341) Negative Negative LEUKOCYTE ESTERASE UA (BEAKER) (test jwvs=247) Large Negative UROBILINOGEN UA (BEAKER) (test irpv=976) 0.2 mg/dL 0.2-1.0 RBC UA (BEAKER) (test urfm=291) 1 /HPF WBC UA (BEAKER) (test jkls=299) 54 /HPF SQUAMOUS EPITHELIAL (BEAKER) (test cjux=244) < /HPF SOURCE(BEAKER) (test nfbk=9157) Urine, Byrd POCT-GLUCOSE [id number] 11:31:00 Test Item Value Reference Range Comments POC-GLUCOSE METER (BEAKER) 249 mg/dL 70-110 TESTED AT [address] (test gywn=8338) [place] [address] POCT-GLUCOSE [id number] 08:34:00 Test Item Value Reference Range Comments POC-GLUCOSE METER (BEAKER) 238 mg/dL 70-110 TESTED AT [address] (test xevj=3084) [place] [address] BASIC METABOLIC [id number] 07:07:00 Test Item Value Reference Range Comments SODIUM (BEAKER) (test 128 meq/L 136-145 xfve=455) POTASSIUM (BEAKER) (test 5.3 meq/L 3.5-5.1 nffl=206) CHLORIDE (BEAKER) (test 97 meq/L 98-107 pfds=719) CO2 (BEAKER) (test 17 meq/L 22-29 hcbd=000) BLOOD UREA NITROGEN 93 mg/dL 7-21 (BEAKER) (test mrsl=990) CREATININE (BEAKER) (test 3.43 mg/dL 0.57-1.25 kecy=478) GLUCOSE RANDOM (BEAKER) 250 mg/dL 70-105 (test xomd=737) CALCIUM (BEAKER) (test 8.4 mg/dL 8.4-10.2 iksv=282) EGFR (BEAKER) (test 13 mL/min/1.73 sq m ESTIMATED GFR IS NOT kjmn=0412) ACCURATE CREATININE CLEARANCE IN PREDICTING GLOMERULAR FILTRATION RATE. ESTIMATED GFR IS NOT APPLICABLE FOR DIALYSIS PATIENTS. [id number] 07:02:00 Test Item Value Reference Range Comments MAGNESIUM (BEAKER) (test tojz=824) 2.2 mg/dL 1.6-2.6 CBC W/PLT COUNT & AUTO [id number] 06:17:00 Test Item Value Reference Range Comments WHITE BLOOD CELL COUNT (BEAKER) (test bdzj=248) 9.4 K/ L 3.5-10.5 RED BLOOD CELL COUNT (BEAKER) (test tlet=690) 2.72 M/ L 3.93-5.22 HEMOGLOBIN (BEAKER) (test hwdr=129) 8.2 GM/DL 11.2-15.7 HEMATOCRIT (BEAKER) (test krnd=210) 26.0 % 34.1-44.9 MEAN CORPUSCULAR VOLUME (BEAKER) (test cbma=857) 95.6 fL 79.4-94.8 MEAN CORPUSCULAR HEMOGLOBIN (BEAKER) (test 30.1 pg 25.6-32.2 ahic=374) MEAN CORPUSCULAR HEMOGLOBIN CONC (BEAKER) (test 31.5 GM/DL 32.2-35.5 ghgm=998) RED CELL DISTRIBUTION WIDTH (BEAKER) (test 13.0 % 11.7-14.4 abmh=565) PLATELET COUNT (BEAKER) (test jydu=904) 315 K/CU MM 150-450 MEAN PLATELET VOLUME (BEAKER) (test eqmb=260) 11.3 fL 9.4-12.3 NUCLEATED RED BLOOD CELLS (BEAKER) (test 0 /100 WBC 0-0 nibl=407) NEUTROPHILS RELATIVE PERCENT (BEAKER) (test 68 % ocph=991) LYMPHOCYTES RELATIVE PERCENT (BEAKER) (test 21 % htmg=544) MONOCYTES RELATIVE PERCENT (BEAKER) (test 9 % dmua=135) EOSINOPHILS RELATIVE PERCENT (BEAKER) (test 1 % tsvw=078) BASOPHILS RELATIVE PERCENT (BEAKER) (test 0 % tfrr=308) NEUTROPHILS ABSOLUTE COUNT (BEAKER) (test 6.45 K/ L 1.56-6.13 hxbl=699) LYMPHOCYTES ABSOLUTE COUNT (BEAKER) (test 1.98 K/ L 1.18-3.74 rrcp=759) MONOCYTES ABSOLUTE COUNT (BEAKER) (test 0.82 K/ L 0.24-0.36 ttpm=626) EOSINOPHILS ABSOLUTE COUNT (BEAKER) (test 0.11 K/ L 0.04-0.36 togy=770) BASOPHILS ABSOLUTE COUNT (BEAKER) (test 0.04 K/ L 0.01-0.08 adnx=318) IMMATURE GRANULOCYTES-RELATIVE PERCENT (BEAKER) 0 % 0-1 (test itgl=8539) POCT-GLUCOSE [id number] 22:07:00 Test Item Value Reference Range Comments POC-GLUCOSE METER (BEAKER) 109 mg/dL 70-110 TESTED AT [address] (test bxtk=4298) [place] [id number] POCT-GLUCOSE [id number] 21:48:00 Test Item Value Reference Range Comments POC-GLUCOSE METER (BEAKER) 41 mg/dL 70-110 Notified SAMAN HERNANDEZ/TESTED AT [facility] (test tzhe=5352) [address] [place], [place] [id number] POCT-GLUCOSE [id number] 21:34:00 Test Item Value Reference Range Comments POC-GLUCOSE METER (BEAKER) 31 mg/dL 70-110 TESTED AT [address] (test izeo=3934) [place] [id number] POCT-GLUCOSE [id number] 21:09:00 Test Item Value Reference Range Comments POC-GLUCOSE METER (BEAKER) 227 mg/dL 70-110 TESTED AT [address] (test ehxa=2378) [place] [id number] RAD, CHEST, 1 VIEW, NON [id number] 19:03:00Reason for exam:->PICC LINE TIP VERIFICATIONShould this be performed at the bedside?->YesFINAL REPORT Chest one view. Clinical history: PICC LINE TIP VERIFICATION Comparison: January 05, 2018 Discussion: A frontal chest is provided. Cardiomediastinal contours are unchanged. A right PICC line has been placed, the tip projects over the cavoatrial junction. Mild degree of interstitial prominence is similar to the previous exam. No new consolidation. No pneumothorax, or significant effusion. Minimal bibasilar atelectasis is similar to the previous exam. Osseous structures demonstrate scattered degenerative changes. Signed: Dick Dallas MDReport Verified Date/Time: 02/01/2018 19:03:06 Reading Location: [address] Consult Reading Room [facility] [id number] 18:09:00 Test Item Value Reference Range Comments SODIUM (BEAKER) (test 132 meq/L 136-145 qdsu=625) POTASSIUM (BEAKER) (test 4.8 meq/L 3.5-5.1 hbxi=965) CHLORIDE (BEAKER) (test 99 meq/L 98-107 jkjj=757) CO2 (BEAKER) (test 18 meq/L 22-29 gzlu=434) BLOOD UREA NITROGEN 83 mg/dL 7-21 (BEAKER) (test loif=322) CREATININE (BEAKER) (test 3.12 mg/dL 0.57-1.25 sgsb=931) GLUCOSE RANDOM (BEAKER) 233 mg/dL 70-105 (test pkmp=697) CALCIUM (BEAKER) (test 8.8 mg/dL 8.4-10.2 qwon=102) EGFR (BEAKER) (test 15 mL/min/1.73 sq m ESTIMATED GFR IS NOT tdnb=4753) ACCURATE CREATININE CLEARANCE IN PREDICTING GLOMERULAR FILTRATION RATE. ESTIMATED GFR IS NOT APPLICABLE FOR DIALYSIS PATIENTS. [id number] 17:51:00 Test Item Value Reference Range Comments PROTIME (BEAKER) (test tnfy=985) 14.5 seconds 11.7-14.7 INR (BEAKER) (test lgly=737) 1.1 <=5.9 PARTIAL THROMBOPLASTIN TIME (BEAKER) (test 30.0 seconds 22.5-36.0 hjuy=617) RECOMMENDED COUMADIN/WARFARIN INR THERAPY RANGESSTANDARD DOSE: 2.0 - 3.0 Includes: PROPHYLAXIS forvenous thrombosis, systemic embolization; TREATMENT for venous thrombosis and/or pulmonary embolus.HIGH RISK: Target INR is 2.5-3.5 for patients with mechanical heart valves.CBC W/PLT COUNT & AUTO [id number] 17:41:00 Test Item Value Reference Range Comments WHITE BLOOD CELL COUNT (BEAKER) (test xpjt=894) 9.5 K/ L 3.5-10.5 RED BLOOD CELL COUNT (BEAKER) (test exnj=626) 2.80 M/ L 3.93-5.22 HEMOGLOBIN (BEAKER) (test dkzl=079) 8.6 GM/DL 11.2-15.7 HEMATOCRIT (BEAKER) (test lckm=413) 28.3 % 34.1-44.9 MEAN CORPUSCULAR VOLUME (BEAKER) (test qtnd=498) 101.1 fL 79.4-94.8 MEAN CORPUSCULAR HEMOGLOBIN (BEAKER) (test 30.7 pg 25.6-32.2 ujxx=511) MEAN CORPUSCULAR HEMOGLOBIN CONC (BEAKER) (test 30.4 GM/DL 32.2-35.5 itmz=773) RED CELL DISTRIBUTION WIDTH (BEAKER) (test 13.0 % 11.7-14.4 kyfs=929) PLATELET COUNT (BEAKER) (test iaxl=080) 330 K/CU MM 150-450 MEAN PLATELET VOLUME (BEAKER) (test dang=242) 11.1 fL 9.4-12.3 NUCLEATED RED BLOOD CELLS (BEAKER) (test 0 /100 WBC 0-0 efrm=556) NEUTROPHILS RELATIVE PERCENT (BEAKER) (test 67 % zlzq=909) LYMPHOCYTES RELATIVE PERCENT (BEAKER) (test 23 % upyy=843) MONOCYTES RELATIVE PERCENT (BEAKER) (test 9 % erow=544) EOSINOPHILS RELATIVE PERCENT (BEAKER) (test 1 % izfa=246) BASOPHILS RELATIVE PERCENT (BEAKER) (test 0 % kneq=202) NEUTROPHILS ABSOLUTE COUNT (BEAKER) (test 6.30 K/ L 1.56-6.13 lhxk=242) LYMPHOCYTES ABSOLUTE COUNT (BEAKER) (test 2.13 K/ L 1.18-3.74 xxyn=268) MONOCYTES ABSOLUTE COUNT (BEAKER) (test 0.82 K/ L 0.24-0.36 opkh=390) EOSINOPHILS ABSOLUTE COUNT (BEAKER) (test 0.13 K/ L 0.04-0.36 cooh=418) BASOPHILS ABSOLUTE COUNT (BEAKER) (test 0.03 K/ L 0.01-0.08 opkn=614) IMMATURE GRANULOCYTES-RELATIVE PERCENT (BEAKER) 1 % 0-1 (test lqlu=4579) RAD, ANKLE, MIN 3 VIEWS, [id number] 15:39:00Reason for exam:->ankle fractureFINAL REPORT Left ankle. Clinical history: Ankle fracture. COMPARISON STUDY: January 05, 2018. Findings his: Three views of the left ankle demonstrate a lateral plate and screwsfixating a distal fibular fracture. There are two cannulated leg screws in the medial malleolus. Thealignment is near-anatomic in nature. Degenerative changes are seen. Soft tissue swelling is noted. Signed: Van Morales Verified Date/Time: 02/01/2018 15:39:13 Reading Location: [facility] Diagnostic Imaging Reading Room - [place] [address] POCT-GLUCOSE [id number] 17:18:00 Test Item Value Reference Range Comments POC-GLUCOSE METER (BEAKER) 100 mg/dL 70-110 TESTED AT [address] (test drki=1643) [facility] [address] POCT-GLUCOSE [id number] 17:18:00 Test Item Value Reference Range Comments POC-GLUCOSE METER (BEAKER) 68 mg/dL 70-110 Notified SAMAN HERNANDEZ/TESTED AT [facility] (test azvl=4466) [address] [place] [address] POCT-GLUCOSE [id number] 11:52:00 Test Item Value Reference Range Comments POC-GLUCOSE METER (BEAKER) 138 mg/dL 70-110 TESTED AT [address] (test quis=0297) [facility] [address] POCT-GLUCOSE [id number] 08:26:00 Test Item Value Reference Range Comments POC-GLUCOSE METER (BEAKER) 251 mg/dL 70-110 TESTED AT [address] (test sacq=7972) [facility] [address] CBC W/PLT COUNT & AUTO [id number] 06:24:00 Test Item Value Reference Range Comments WHITE BLOOD CELL COUNT (BEAKER) (test dinb=615) 8.3 K/ L 3.5-10.5 RED BLOOD CELL COUNT (BEAKER) (test dgvo=689) 2.94 M/ L 3.93-5.22 HEMOGLOBIN (BEAKER) (test fenm=385) 9.2 GM/DL 11.2-15.7 HEMATOCRIT (BEAKER) (test hmrp=504) 29.1 % 34.1-44.9 MEAN CORPUSCULAR VOLUME (BEAKER) (test qven=125) 99.0 fL 79.4-94.8 MEAN CORPUSCULAR HEMOGLOBIN (BEAKER) (test 31.3 pg 25.6-32.2 dbhb=343) MEAN CORPUSCULAR HEMOGLOBIN CONC (BEAKER) (test 31.6 GM/DL 32.2-35.5 qthl=184) RED CELL DISTRIBUTION WIDTH (BEAKER) (test 11.9 % 11.7-14.4 ainp=577) PLATELET COUNT (BEAKER) (test hqbj=048) 293 K/CU MM 150-450 MEAN PLATELET VOLUME (BEAKER) (test cocs=224) 12.7 fL 9.4-12.3 NUCLEATED RED BLOOD CELLS (BEAKER) (test 0 /100 WBC 0-0 sfxq=981) NEUTROPHILS RELATIVE PERCENT (BEAKER) (test 63 % rtyy=618) LYMPHOCYTES RELATIVE PERCENT (BEAKER) (test 20 % plkv=730) MONOCYTES RELATIVE PERCENT (BEAKER) (test 10 % oevv=951) EOSINOPHILS RELATIVE PERCENT (BEAKER) (test 6 % odrc=367) BASOPHILS RELATIVE PERCENT (BEAKER) (test 1 % tdkc=286) NEUTROPHILS ABSOLUTE COUNT (BEAKER) (test 5.21 K/ L 1.56-6.13 ewhf=252) LYMPHOCYTES ABSOLUTE COUNT (BEAKER) (test 1.67 K/ L 1.18-3.74 lzhl=475) MONOCYTES ABSOLUTE COUNT (BEAKER) (test 0.86 K/ L 0.24-0.36 dbot=707) EOSINOPHILS ABSOLUTE COUNT (BEAKER) (test 0.47 K/ L 0.04-0.36 jhsz=607) BASOPHILS ABSOLUTE COUNT (BEAKER) (test 0.05 K/ L 0.01-0.08 itdf=300) IMMATURE GRANULOCYTES-RELATIVE PERCENT (BEAKER) 1 % 0-1 (test kuyd=4151) POCT-GLUCOSE [id number] 21:03:00 Test Item Value Reference Range Comments POC-GLUCOSE METER (BEAKER) 354 mg/dL 70-110 TESTED AT [address] (test ejty=6001) [facility] [address] POCT-GLUCOSE [id number] 18:07:00 Test Item Value Reference Range Comments POC-GLUCOSE METER (BEAKER) 309 mg/dL 70-110 TESTED AT [address] (test kfto=1563) [facility] [address] POCT-GLUCOSE [id number] 12:25:00 Test Item Value Reference Range Comments POC-GLUCOSE METER (BEAKER) 253 mg/dL 70-110 TESTED AT [address] (test oomn=2461) [facility] [address] POCT-GLUCOSE [id number] 08:01:00 Test Item Value Reference Range Comments POC-GLUCOSE METER (BEAKER) 305 mg/dL 70-110 Notified SAMAN HERNANDEZ/TESTED AT [facility] (test mgtf=7194) [address] [place] [address] [id number] 06:41:00 Test Item Value Reference Range Comments MAGNESIUM (BEAKER) (test wazn=186) 1.9 mg/dL 1.6-2.6 BASIC METABOLIC [id number] 06:41:00 Test Item Value Reference Range Comments SODIUM (BEAKER) (test 130 meq/L 136-145 xtqg=130) POTASSIUM (BEAKER) (test 4.7 meq/L 3.5-5.1 nuoy=572) CHLORIDE (BEAKER) (test 97 meq/L 98-107 cjfk=804) CO2 (BEAKER) (test 25 meq/L 22-29 pdzm=750) BLOOD UREA NITROGEN 25 mg/dL 7-21 (BEAKER) (test dtyb=430) CREATININE (BEAKER) (test 0.91 mg/dL 0.57-1.25 orrm=415) GLUCOSE RANDOM (BEAKER) 260 mg/dL 70-105 (test fqqh=855) CALCIUM (BEAKER) (test 8.7 mg/dL 8.4-10.2 msop=513) EGFR (BEAKER) (test 62 mL/min/1.73 sq m ESTIMATED GFR IS NOT sfcu=1479) ACCURATE CREATININE CLEARANCE IN PREDICTING GLOMERULAR FILTRATION RATE. ESTIMATED GFR IS NOT APPLICABLE FOR DIALYSIS PATIENTS. CBC W/PLT COUNT & AUTO [id number] 06:10:00 Test Item Value Reference Range Comments WHITE BLOOD CELL COUNT (BEAKER) (test ntex=311) 9.7 K/ L 3.5-10.5 RED BLOOD CELL COUNT (BEAKER) (test youi=250) 2.92 M/ L 3.93-5.22 HEMOGLOBIN (BEAKER) (test dlut=096) 9.2 GM/DL 11.2-15.7 HEMATOCRIT (BEAKER) (test tfkw=185) 28.8 % 34.1-44.9 MEAN CORPUSCULAR VOLUME (BEAKER) (test ojgj=806) 98.6 fL 79.4-94.8 MEAN CORPUSCULAR HEMOGLOBIN (BEAKER) (test 31.5 pg 25.6-32.2 uzeo=006) MEAN CORPUSCULAR HEMOGLOBIN CONC (BEAKER) (test 31.9 GM/DL 32.2-35.5 sugq=719) RED CELL DISTRIBUTION WIDTH (BEAKER) (test 12.1 % 11.7-14.4 neyy=317) PLATELET COUNT (BEAKER) (test fcbx=334) 269 K/CU MM 150-450 MEAN PLATELET VOLUME (BEAKER) (test ilap=421) 13.2 fL 9.4-12.3 NUCLEATED RED BLOOD CELLS (BEAKER) (test 0 /100 WBC 0-0 xgpg=844) NEUTROPHILS RELATIVE PERCENT (BEAKER) (test 66 % rcug=599) LYMPHOCYTES RELATIVE PERCENT (BEAKER) (test 19 % eqrd=362) MONOCYTES RELATIVE PERCENT (BEAKER) (test 10 % rcxg=697) EOSINOPHILS RELATIVE PERCENT (BEAKER) (test 4 % solp=169) BASOPHILS RELATIVE PERCENT (BEAKER) (test 0 % fpgy=790) NEUTROPHILS ABSOLUTE COUNT (BEAKER) (test 6.35 K/ L 1.56-6.13 ivwr=556) LYMPHOCYTES ABSOLUTE COUNT (BEAKER) (test 1.87 K/ L 1.18-3.74 ngfn=877) MONOCYTES ABSOLUTE COUNT (BEAKER) (test 0.93 K/ L 0.24-0.36 cmev=174) EOSINOPHILS ABSOLUTE COUNT (BEAKER) (test 0.43 K/ L 0.04-0.36 tkrz=131) BASOPHILS ABSOLUTE COUNT (BEAKER) (test 0.04 K/ L 0.01-0.08 kogc=864) IMMATURE GRANULOCYTES-RELATIVE PERCENT (BEAKER) 1 % 0-1 (test oges=4444) POCT-GLUCOSE [id number] 21:07:00 Test Item Value Reference Range Comments POC-GLUCOSE METER (BEAKER) 162 mg/dL 70-110 TESTED AT [address] (test fslz=6331) [facility] [address] POCT-GLUCOSE [id number] 17:50:00 Test Item Value Reference Range Comments POC-GLUCOSE METER (BEAKER) 286 mg/dL 70-110 TESTED AT [address] (test oylm=0896) [facility] [address] POCT-GLUCOSE [id number] 13:33:00 Test Item Value Reference Range Comments POC-GLUCOSE METER (BEAKER) 123 mg/dL 70-110 TESTED AT [address] (test kowo=4693) [facility] [address] POCT-GLUCOSE [id number] 09:09:00 Test Item Value Reference Range Comments POC-GLUCOSE METER (BEAKER) 209 mg/dL 70-110 TESTED AT [address] (test lbhd=3807) [facility] [address] [id number] 05:50:00 Test Item Value Reference Range Comments MAGNESIUM (BEAKER) (test uuxg=474) 2.0 mg/dL 1.6-2.6 BASIC METABOLIC [id number] 05:50:00 Test Item Value Reference Range Comments SODIUM (BEAKER) (test 131 meq/L 136-145 nvxt=489) POTASSIUM (BEAKER) (test 4.9 meq/L 3.5-5.1 gzzt=878) CHLORIDE (BEAKER) (test 101 meq/L 98-107 dfad=349) CO2 (BEAKER) (test 23 meq/L 22-29 lezy=866) BLOOD UREA NITROGEN 23 mg/dL 7-21 (BEAKER) (test tmkg=868) CREATININE (BEAKER) (test 0.99 mg/dL 0.57-1.25 zfhv=187) GLUCOSE RANDOM (BEAKER) 173 mg/dL 70-105 (test lsln=577) CALCIUM (BEAKER) (test 9.0 mg/dL 8.4-10.2 fazx=301) EGFR (BEAKER) (test 56 mL/min/1.73 sq m ESTIMATED GFR IS NOT rkno=8517) ACCURATE CREATININE CLEARANCE IN PREDICTING GLOMERULAR FILTRATION RATE. ESTIMATED GFR IS NOT APPLICABLE FOR DIALYSIS PATIENTS. CBC W/PLT COUNT & AUTO [id number] 05:24:00 Test Item Value Reference Range Comments WHITE BLOOD CELL COUNT (BEAKER) (test uese=028) 8.8 K/ L 3.5-10.5 RED BLOOD CELL COUNT (BEAKER) (test erbb=765) 3.00 M/ L 3.93-5.22 HEMOGLOBIN (BEAKER) (test zttz=963) 9.6 GM/DL 11.2-15.7 HEMATOCRIT (BEAKER) (test bxll=063) 29.9 % 34.1-44.9 MEAN CORPUSCULAR VOLUME (BEAKER) (test uzqj=789) 99.7 fL 79.4-94.8 MEAN CORPUSCULAR HEMOGLOBIN (BEAKER) (test 32.0 pg 25.6-32.2 jkvk=324) MEAN CORPUSCULAR HEMOGLOBIN CONC (BEAKER) (test 32.1 GM/DL 32.2-35.5 xbev=387) RED CELL DISTRIBUTION WIDTH (BEAKER) (test 12.4 % 11.7-14.4 hiaz=953) PLATELET COUNT (BEAKER) (test ndrp=658) 245 K/CU MM 150-450 MEAN PLATELET VOLUME (BEAKER) (test tszw=658) 13.2 fL 9.4-12.3 NUCLEATED RED BLOOD CELLS (BEAKER) (test 0 /100 WBC 0-0 silw=960) NEUTROPHILS RELATIVE PERCENT (BEAKER) (test 70 % ioon=781) LYMPHOCYTES RELATIVE PERCENT (BEAKER) (test 16 % jjei=942) MONOCYTES RELATIVE PERCENT (BEAKER) (test 9 % qjrv=284) EOSINOPHILS RELATIVE PERCENT (BEAKER) (test 4 % susg=568) BASOPHILS RELATIVE PERCENT (BEAKER) (test 1 % tssp=073) NEUTROPHILS ABSOLUTE COUNT (BEAKER) (test 6.15 K/ L 1.56-6.13 jasz=723) LYMPHOCYTES ABSOLUTE COUNT (BEAKER) (test 1.36 K/ L 1.18-3.74 pxnv=196) MONOCYTES ABSOLUTE COUNT (BEAKER) (test 0.83 K/ L 0.24-0.36 rfsa=976) EOSINOPHILS ABSOLUTE COUNT (BEAKER) (test 0.36 K/ L 0.04-0.36 vust=929) BASOPHILS ABSOLUTE COUNT (BEAKER) (test 0.04 K/ L 0.01-0.08 yzdy=812) IMMATURE GRANULOCYTES-RELATIVE PERCENT (BEAKER) 1 % 0-1 (test yvak=2714) CT, CTA AAA, W/ VAN.EXT.[id number] 02:56:00Addendum BeginsREPORT STATUS:A Additional postcontrast images of the lower extremities were performed utilizing a runoff protocol. Signed: Newton Engle MDReport Verified Date/Time: 01/09/2018 02:56:14 Reading Location: [address] Reading RoomAddendum EndsFINAL REPORT CLINICAL HISTORY: Left lower leg trauma, vascular insufficiency FINDINGS: Multiple axial images of the abdomen and pelvis were performed before and after the uncomplicated administration of IV contrast utilizing a CT aortogram protocol. Coronal and sagittal reformats were created. 3-D imaging on an independent workstation was also performed for optimal visualization of the arterial system in accordance with the aortogram protocol. Oral contrast was not given. This exam was performed according to our departmental dose- optimization program, which includes automated exposure control, adjustment of the mA and/or kV according to patient size and/or use of the iterative reconstruction technique. Comparison:None. Vascular: There is diffuse atherosclerotic calcification and scattered mural thickening/irregularity. There is no aortic aneurysm or dissection. The aorta is normalin caliber. The diaphragmatic hiatus the aorta measures 2.2 cm. At the celiac origin and it measures2.1 cm. At the SMA origin and it measures 2.0 cm. At the left renal artery origin and it measures 2.0 cm. Just above the bifurcation it measures 1.8 cm. The celiac axis and SMA are patent with scattered atherosclerotic calcification along their branches and normal distribution. There are single renal arteries bilaterally. The HAYDER demonstrates scattered atherosclerotic irregularity but appears patent.The aortic bifurcation is patent. Right lower extremity: The right common iliac artery measures 10 mm and is patent. The iliac bifurcation is patent as are the internal iliac artery and its major branches. The right external iliac artery is patent and normal in caliber. There is minimal focal stenosis at the distal portion of the common femoral artery. The deep femoral artery is patent. There is occlusion of the superficial femoral artery from its origin to its mid portion where the contrast column is reconstituted by collateral flow. There is scattered, significant narrowing of the mid to distalsuperficial femoral artery. The proximal popliteal artery is occluded but there is reconstitution bycollaterals around the knee. Atherosclerotic calcifications limit evaluation of the narrowed contrast columns below the popliteal artery but there is diminutive, three-vessel runoff to the foot. Left lower extremity: The left common iliac artery measures 10 mm. There is scattered atherosclerotic calcification. The iliac bifurcation is patent as is the internal iliac artery and its major branches. Theleft external iliac artery is patent as is the common femoral artery. There is mild atherosclerotic calcification resulting in luminal narrowing at the common femoral bifurcation. The deep femoral artery is patent. There is scattered atherosclerotic calcification and mural thickening with associated irregular luminal narrowing of the superficial femoral artery along its entire length. The contrast column nearly disappears at the proximal popliteal artery but there is subtle reconstitution by collaterals about the knee. The popliteal artery demonstrates significant, segmental atherosclerotic narrowing. Atherosclerotic calcifications limit evaluation of the arteries below the knee. The anterior tibial artery appears occluded and there is diminutive flow in the peroneal and posterior tibial artery. The patient has undergone distal tibial and fibular fracture fixation. A small amount of subcutaneous/soft tissue gas is in keeping with recent postoperative status. Lower chest: Curvilinear atelectasisversus scarring in the lung bases. No pleural effusion or pneumothorax. Coronary artery atherosclerotic calcification. Liver: No significant findings. Gallbladder and biliary tree: Previous cholecystectomy Spleen: No significant findings. Adrenal Glands: No significant findings. Kidneys and ureters: No significant findings. Stomach and Duodenum: No significant findings. Pancreas: Fatty replacement Bowel: No significant findings. Appendix: Normal. Bladder: No significant findings. Reproductive organs: Previous hysterectomy Other: No free air, fluid or adenopathy Skeleton: Postsurgical changes in the left ankle, as described. 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 Postsurgical changes, as described. Signed: Newton Engle MDReport Verified Date/Time: 01/06/2018 19:53:17 Reading Location: [address] Reading Room Electronically signed by: NEWTON ENGLE M.D. on 02:56 AMPOCT-GLUCOSE [id number] 20:28:00 Test Item Value Reference Range Comments POC-GLUCOSE METER (BEAKER) 177 mg/dL 70-110 TESTED AT [address] (test ixzq=5979) [facility] [address] POCT-GLUCOSE [id number] 17:37:00 Test Item Value Reference Range Comments POC-GLUCOSE METER (BEAKER) 123 mg/dL 70-110 TESTED AT [address] (test tcnb=0068) [facility] [address] GLUCOSE-STAT [id number] 15:11:00 Test Item Value Reference Range Comments GLUCOSE RANDOM (BEAKER) (test hmrl=934) 112 mg/dL 70-110 HGB/HCT (H&H) - STAT [id number] 15:11:00 Test Item Value Reference Range Comments HEMOGLOBIN (BEAKER) (test mwef=920) 11.0 g/dL 12.0-15.0 HEMATOCRIT (BEAKER) (test vdbv=344) 32.0 % 36.0-45.0 POCT-GLUCOSE [id number] 08:21:00 Test Item Value Reference Range Comments POC-GLUCOSE METER (BEAKER) 123 mg/dL 70-110 TESTED AT [address] (test zrao=6740) [place] [id number] 05:17:00 Test Item Value Reference Range Comments MAGNESIUM (BEAKER) (test zuyz=675) 2.2 mg/dL 1.6-2.6 BASIC METABOLIC [id number] 05:17:00 Test Item Value Reference Range Comments SODIUM (BEAKER) (test 132 meq/L 136-145 bwah=216) POTASSIUM (BEAKER) (test 4.6 meq/L 3.5-5.1 ofvg=796) CHLORIDE (BEAKER) (test 99 meq/L 98-107 vvsb=648) CO2 (BEAKER) (test 25 meq/L 22-29 pwpm=928) BLOOD UREA NITROGEN 25 mg/dL 7-21 (BEAKER) (test prib=694) CREATININE (BEAKER) (test 0.85 mg/dL 0.57-1.25 hotc=734) GLUCOSE RANDOM (BEAKER) 102 mg/dL 70-105 (test bakb=976) CALCIUM (BEAKER) (test 9.1 mg/dL 8.4-10.2 mbfm=659) EGFR (BEAKER) (test 67 mL/min/1.73 sq m ESTIMATED GFR IS NOT hvta=5628) ACCURATE CREATININE CLEARANCE IN PREDICTING GLOMERULAR FILTRATION RATE. ESTIMATED GFR IS NOT APPLICABLE FOR DIALYSIS PATIENTS. PT/[id number] 05:11:00 Test Item Value Reference Range Comments PROTIME (BEAKER) (test ruia=221) 14.1 seconds 11.7-14.7 INR (BEAKER) (test yaea=454) 1.1 <=5.9 PARTIAL THROMBOPLASTIN TIME (BEAKER) (test 34.5 seconds 22.5-36.0 mgwk=940) RECOMMENDED COUMADIN/WARFARIN INR THERAPY RANGESSTANDARD DOSE: 2.0 - 3.0 Includes: PROPHYLAXIS forvenous thrombosis, systemic embolization; TREATMENT for venous thrombosis and/or pulmonary embolus.HIGH RISK: Target INR is 2.5-3.5 for patients with mechanical heart valves.[id number] 05:11:00 Test Item Value Reference Range Comments PARTIAL THROMBOPLASTIN TIME (BEAKER) (test 34.5 seconds 22.5-36.0 xzuh=925) CBC W/PLT COUNT & AUTO [id number] 04:57:00 Test Item Value Reference Range Comments WHITE BLOOD CELL COUNT (BEAKER) (test vffr=623) 8.9 K/ L 3.5-10.5 RED BLOOD CELL COUNT (BEAKER) (test bfsg=027) 3.57 M/ L 3.93-5.22 HEMOGLOBIN (BEAKER) (test sdqs=068) 11.1 GM/DL 11.2-15.7 HEMATOCRIT (BEAKER) (test cukj=766) 34.9 % 34.1-44.9 MEAN CORPUSCULAR VOLUME (BEAKER) (test zpab=589) 97.8 fL 79.4-94.8 MEAN CORPUSCULAR HEMOGLOBIN (BEAKER) (test 31.1 pg 25.6-32.2 udoc=590) MEAN CORPUSCULAR HEMOGLOBIN CONC (BEAKER) (test 31.8 GM/DL 32.2-35.5 dniw=443) RED CELL DISTRIBUTION WIDTH (BEAKER) (test 12.3 % 11.7-14.4 ldhe=146) PLATELET COUNT (BEAKER) (test ixtm=884) 267 K/CU MM 150-450 MEAN PLATELET VOLUME (BEAKER) (test vqns=248) 13.3 fL 9.4-12.3 NUCLEATED RED BLOOD CELLS (BEAKER) (test 0 /100 WBC 0-0 shsf=543) NEUTROPHILS RELATIVE PERCENT (BEAKER) (test 64 % osut=689) LYMPHOCYTES RELATIVE PERCENT (BEAKER) (test 21 % ujaa=071) MONOCYTES RELATIVE PERCENT (BEAKER) (test 10 % isgu=387) EOSINOPHILS RELATIVE PERCENT (BEAKER) (test 4 % mgir=358) BASOPHILS RELATIVE PERCENT (BEAKER) (test 0 % zyak=619) NEUTROPHILS ABSOLUTE COUNT (BEAKER) (test 5.72 K/ L 1.56-6.13 uskx=516) LYMPHOCYTES ABSOLUTE COUNT (BEAKER) (test 1.90 K/ L 1.18-3.74 affd=890) MONOCYTES ABSOLUTE COUNT (BEAKER) (test 0.87 K/ L 0.24-0.36 htoe=722) EOSINOPHILS ABSOLUTE COUNT (BEAKER) (test 0.33 K/ L 0.04-0.36 suee=268) BASOPHILS ABSOLUTE COUNT (BEAKER) (test 0.04 K/ L 0.01-0.08 xkzn=040) IMMATURE GRANULOCYTES-RELATIVE PERCENT (BEAKER) 1 % 0-1 (test vnkm=1459) POCT-GLUCOSE [id number] 20:47:00 Test Item Value Reference Range Comments POC-GLUCOSE METER (BEAKER) 131 mg/dL 70-110 TESTED AT [address] (test becv=6646) [place] [id number] POCT-GLUCOSE [id number] 16:03:00 Test Item Value Reference Range Comments POC-GLUCOSE METER (BEAKER) 174 mg/dL 70-110 TESTED AT [address] (test bynv=9113) [place] [id number] POCT-GLUCOSE [id number] 13:49:00 Test Item Value Reference Range Comments POC-GLUCOSE METER (BEAKER) 100 mg/dL 70-110 TESTED AT [address] (test kbeh=5980) [place] [address] POCT-GLUCOSE [id number] 13:05:00 Test Item Value Reference Range Comments POC-GLUCOSE METER (BEAKER) 70 mg/dL 70-110 TESTED AT [facility] [address] [facility] (test glac=8090) [facility] [address] POCT-GLUCOSE [id number] 08:23:00 Test Item Value Reference Range Comments POC-GLUCOSE METER (BEAKER) 142 mg/dL 70-110 TESTED AT [place] [id number] [facility] (test vdjx=5830) [facility] [address] [id number] 07:10:00 Test Item Value Reference Range Comments MAGNESIUM (BEAKER) (test aydb=607) 1.9 mg/dL 1.6-2.6 BASIC METABOLIC [id number] 07:10:00 Test Item Value Reference Range Comments SODIUM (BEAKER) (test 131 meq/L 136-145 jjft=260) POTASSIUM (BEAKER) (test 4.2 meq/L 3.5-5.1 dris=005) CHLORIDE (BEAKER) (test 97 meq/L 98-107 mavp=946) CO2 (BEAKER) (test 25 meq/L 22-29 npts=926) BLOOD UREA NITROGEN 22 mg/dL 7-21 (BEAKER) (test kwii=645) CREATININE (BEAKER) (test 0.78 mg/dL 0.57-1.25 hcog=406) GLUCOSE RANDOM (BEAKER) 167 mg/dL 70-105 (test rptf=407) CALCIUM (BEAKER) (test 9.1 mg/dL 8.4-10.2 xvxn=756) EGFR (BEAKER) (test 74 mL/min/1.73 sq m ESTIMATED GFR IS NOT mtkg=6030) ACCURATE CREATININE CLEARANCE IN PREDICTING GLOMERULAR FILTRATION RATE. ESTIMATED GFR IS NOT APPLICABLE FOR DIALYSIS PATIENTS. CBC W/PLT COUNT & AUTO [id number] 06:39:00 Test Item Value Reference Range Comments WHITE BLOOD CELL COUNT (BEAKER) (test zyay=254) 8.3 K/ L 3.5-10.5 RED BLOOD CELL COUNT (BEAKER) (test wsjn=737) 3.59 M/ L 3.93-5.22 HEMOGLOBIN (BEAKER) (test jqcb=012) 11.4 GM/DL 11.2-15.7 HEMATOCRIT (BEAKER) (test zqwf=758) 35.1 % 34.1-44.9 MEAN CORPUSCULAR VOLUME (BEAKER) (test buhx=501) 97.8 fL 79.4-94.8 MEAN CORPUSCULAR HEMOGLOBIN (BEAKER) (test 31.8 pg 25.6-32.2 enjd=893) MEAN CORPUSCULAR HEMOGLOBIN CONC (BEAKER) (test 32.5 GM/DL 32.2-35.5 wiza=349) RED CELL DISTRIBUTION WIDTH (BEAKER) (test 12.4 % 11.7-14.4 dclx=068) PLATELET COUNT (BEAKER) (test vkpr=974) 249 K/CU MM 150-450 MEAN PLATELET VOLUME (BEAKER) (test dgwi=597) 13.4 fL 9.4-12.3 NUCLEATED RED BLOOD CELLS (BEAKER) (test 0 /100 WBC 0-0 ykyz=006) NEUTROPHILS RELATIVE PERCENT (BEAKER) (test 66 % ekfl=624) LYMPHOCYTES RELATIVE PERCENT (BEAKER) (test 21 % qdhg=298) MONOCYTES RELATIVE PERCENT (BEAKER) (test 9 % wijf=968) EOSINOPHILS RELATIVE PERCENT (BEAKER) (test 3 % qsrw=919) BASOPHILS RELATIVE PERCENT (BEAKER) (test 0 % lnyt=986) NEUTROPHILS ABSOLUTE COUNT (BEAKER) (test 5.53 K/ L 1.56-6.13 jgqq=922) LYMPHOCYTES ABSOLUTE COUNT (BEAKER) (test 1.71 K/ L 1.18-3.74 cfmz=596) MONOCYTES ABSOLUTE COUNT (BEAKER) (test 0.76 K/ L 0.24-0.36 rwtv=688) EOSINOPHILS ABSOLUTE COUNT (BEAKER) (test 0.25 K/ L 0.04-0.36 atgw=251) BASOPHILS ABSOLUTE COUNT (BEAKER) (test 0.03 K/ L 0.01-0.08 brba=270) IMMATURE GRANULOCYTES-RELATIVE PERCENT (BEAKER) 1 % 0-1 (test ewyl=6724) POCT-GLUCOSE [id number] 22:13:00 Test Item Value Reference Range Comments POC-GLUCOSE METER (BEAKER) 278 mg/dL 70-110 TESTED AT [facility] [address] [facility] (test ggou=7525) [facility] [id number] POCT-GLUCOSE [id number] 16:21:00 Test Item Value Reference Range Comments POC-GLUCOSE METER (BEAKER) 117 mg/dL 70-110 TESTED AT [facility] [address] [facility] (test emkm=9229) [facility] [address] POCT-GLUCOSE [id number] 12:15:00 Test Item Value Reference Range Comments POC-GLUCOSE METER (BEAKER) 126 mg/dL 70-110 TESTED AT [facility] [address] [facility] (test otsg=5911) [facility] [address] B-TYPE NATRIURETIC FACTOR (BNP)2018-01-06 08:18:00 Test Item Value Reference Range Comments B-TYPE NATRIURETIC PEPTIDE (BEAKER) (test bgsl=010) 93 pg/mL 0-100 [id number] 07:52:00 Test Item Value Reference Range Comments MAGNESIUM (BEAKER) (test wqld=185) 1.8 mg/dL 1.6-2.6 BASIC METABOLIC [id number] 07:52:00 Test Item Value Reference Range Comments SODIUM (BEAKER) (test 133 meq/L 136-145 kskg=949) POTASSIUM (BEAKER) (test 4.0 meq/L 3.5-5.1 wxvh=500) CHLORIDE (BEAKER) (test 99 meq/L 98-107 wunh=097) CO2 (BEAKER) (test 26 meq/L 22-29 moix=701) BLOOD UREA NITROGEN 19 mg/dL 7-21 (BEAKER) (test vech=194) CREATININE (BEAKER) (test 0.72 mg/dL 0.57-1.25 puqn=117) GLUCOSE RANDOM (BEAKER) 193 mg/dL 70-105 (test vfba=078) CALCIUM (BEAKER) (test 9.3 mg/dL 8.4-10.2 npgw=487) EGFR (BEAKER) (test 81 mL/min/1.73 sq m ESTIMATED GFR IS NOT ylim=2248) ACCURATE CREATININE CLEARANCE IN PREDICTING GLOMERULAR FILTRATION RATE. ESTIMATED GFR IS NOT APPLICABLE FOR DIALYSIS PATIENTS. POCT-GLUCOSE [id number] 07:38:00 Test Item Value Reference Range Comments POC-GLUCOSE METER (BEAKER) 204 mg/dL 70-110 TESTED AT [facility] [address] [facility] (test ssha=3481) [facility] [address] CBC W/PLT COUNT & AUTO [id number] 07:36:00 Test Item Value Reference Range Comments WHITE BLOOD CELL COUNT (BEAKER) (test jtjw=519) 10.2 K/ L 3.5-10.5 RED BLOOD CELL COUNT (BEAKER) (test xqqu=495) 3.73 M/ L 3.93-5.22 HEMOGLOBIN (BEAKER) (test dpgj=021) 11.9 GM/DL 11.2-15.7 HEMATOCRIT (BEAKER) (test trcf=179) 36.0 % 34.1-44.9 MEAN CORPUSCULAR VOLUME (BEAKER) (test ccyn=753) 96.5 fL 79.4-94.8 MEAN CORPUSCULAR HEMOGLOBIN (BEAKER) (test 31.9 pg 25.6-32.2 tyqo=602) MEAN CORPUSCULAR HEMOGLOBIN CONC (BEAKER) (test 33.1 GM/DL 32.2-35.5 tzuo=508) RED CELL DISTRIBUTION WIDTH (BEAKER) (test 12.5 % 11.7-14.4 wlak=201) PLATELET COUNT (BEAKER) (test iuti=348) 246 K/CU MM 150-450 MEAN PLATELET VOLUME (BEAKER) (test ngja=066) 13.4 fL 9.4-12.3 NUCLEATED RED BLOOD CELLS (BEAKER) (test 0 /100 WBC 0-0 hhng=597) NEUTROPHILS RELATIVE PERCENT (BEAKER) (test 71 % cbds=737) LYMPHOCYTES RELATIVE PERCENT (BEAKER) (test 19 % crqj=341) MONOCYTES RELATIVE PERCENT (BEAKER) (test 8 % qbjd=991) EOSINOPHILS RELATIVE PERCENT (BEAKER) (test 2 % cceu=632) BASOPHILS RELATIVE PERCENT (BEAKER) (test 0 % cqfv=014) NEUTROPHILS ABSOLUTE COUNT (BEAKER) (test 7.29 K/ L 1.56-6.13 ezqi=619) LYMPHOCYTES ABSOLUTE COUNT (BEAKER) (test 1.93 K/ L 1.18-3.74 aecl=118) MONOCYTES ABSOLUTE COUNT (BEAKER) (test 0.81 K/ L 0.24-0.36 rpno=987) EOSINOPHILS ABSOLUTE COUNT (BEAKER) (test 0.15 K/ L 0.04-0.36 epne=806) BASOPHILS ABSOLUTE COUNT (BEAKER) (test 0.03 K/ L 0.01-0.08 qltm=987) IMMATURE GRANULOCYTES-RELATIVE PERCENT (BEAKER) 0 % 0-1 (test lnbe=0547) POCT-GLUCOSE [id number] 22:01:00 Test Item Value Reference Range Comments POC-GLUCOSE METER (BEAKER) 281 mg/dL 70-110 TESTED AT [address] (test syxy=5389) [place] [address] RAD, CHEST, 1 VIEW, NON [id number] 17:19:00Reason for exam:-> hypoxiaShould this be performed at the bedside?->YesFINAL REPORT EXAM: Frontal chest radiograph HISTORY PROVIDED: Hypoxia COMPARISON : 07/12/2017 IMPRESSION:There is perihilar interstitial indistinctness compatible with central pulmonary vascular congestion with potential mild perihilar edema. Minimal left greater than right bibasilar opacity likely represent atelectasis. Superimposed pneumonitis should be excluded clinically. No pneumothorax or significant pleural fluid. The cardiac silhouette remains enlarged. The thoracic aorta is mildly tortuous. No acute osseous abnormality. Signed: [facility] Verified Date/Time: 01/05/2018 17:19:47 Reading Location: [facility] POCT-GLUCOSE [id number] 17:18:00 Test Item Value Reference Range Comments POC-GLUCOSE METER (BEAKER) 340 mg/dL 70-110 TESTED AT [address] (test lbdi=2770) [place] [address] POCT-GLUCOSE [id number] 13:18:00 Test Item Value Reference Range Comments POC-GLUCOSE METER (BEAKER) 333 mg/dL 70-110 Notified SAMAN HERNANDEZ/TESTED AT [facility] (test abux=8782) [address] [place] [address] RAD, ANKLE, 2 VIEWS, [id number] 11:18:00Reason for exam:->left ankle ORIFShould this be performed at the bedside?->YesFINAL REPORT TECHNIQUE: Frontal and lateral radiographs of the left ankle dated 01/05 HISTORY: Left ankle ORIF COMPARISON: None. FINDINGS:The patient is status post fixation of left ankle fracture with postsurgical changes seen in the soft tissues. Two screws are seen traversing the medial malleolus and a plate is seen affixed to the lateral aspect of the distal fibula by means of multiple screws. No evidence of hardware-related complication. No dislocation. Bones are osteopenic. Mild degenerative changes are seen in the tarsal joints. The ankle mortise is grossly preserved on these nonstress views. IMPRESSION:Postsurgical appearance of the left ankle as above. Signed: Macie Fraire MDR[facility]ort Verified Date/Time: 01/05/2018 11:18:34 Reading Location: [facility] RadiologyReading Room HEMOGLOBIN [id number] 09:50:00 Test Item Value Reference Range Comments HEMOGLOBIN A1C (BEAKER) (test mnri=578) 13.1 % 4.3-6.1 POCT-GLUCOSE [id number] 08:58:00 Test Item Value Reference Range Comments POC-GLUCOSE METER (BEAKER) 241 mg/dL 70-110 TESTED AT [facility] [address] [facility] (test cxde=5638) [facility] [address] [id number] 05:32:00 Test Item Value Reference Range Comments MAGNESIUM (BEAKER) (test kwic=935) 1.5 mg/dL 1.6-2.6 BASIC METABOLIC [id number] 05:32:00 Test Item Value Reference Range Comments SODIUM (BEAKER) (test 130 meq/L 136-145 dgym=594) POTASSIUM (BEAKER) (test 3.5 meq/L 3.5-5.1 hrsn=412) CHLORIDE (BEAKER) (test 96 meq/L 98-107 fwas=009) CO2 (BEAKER) (test 26 meq/L 22-29 ttih=209) BLOOD UREA NITROGEN 17 mg/dL 7-21 (BEAKER) (test qtow=585) CREATININE (BEAKER) (test 0.77 mg/dL 0.57-1.25 tmlb=412) GLUCOSE RANDOM (BEAKER) 221 mg/dL 70-105 (test ogne=479) CALCIUM (BEAKER) (test 8.7 mg/dL 8.4-10.2 jgxl=748) EGFR (BEAKER) (test 75 mL/min/1.73 sq m ESTIMATED GFR IS NOT lsrc=4426) ACCURATE CREATININE CLEARANCE IN PREDICTING GLOMERULAR FILTRATION RATE. ESTIMATED GFR IS NOT APPLICABLE FOR DIALYSIS PATIENTS. HEPATIC FUNCTION [id number] 05:32:00 Test Item Value Reference Range Comments TOTAL PROTEIN (BEAKER) (test tkro=195) 6.8 gm/dL 6.0-8.3 ALBUMIN (BEAKER) (test creb=8862) 3.0 g/dL 3.5-5.0 BILIRUBIN TOTAL (BEAKER) (test zqvm=598) 0.6 mg/dL 0.2-1.2 BILIRUBIN DIRECT (BEAKER) (test bmzk=947) 0.3 mg/dL 0.1-0.5 ALKALINE PHOSPHATASE (BEAKER) (test xmjo=207) 216 U/L 40-150 AST (SGOT) (BEAKER) (test ramk=327) 26 U/L 5-34 ALT (SGPT) (BEAKER) (test owix=366) 32 U/L 6-55 PROTHROMBIN [id number] 05:12:00 Test Item Value Reference Range Comments PROTIME (BEAKER) (test iywc=134) 14.2 seconds 11.7-14.7 INR (BEAKER) (test lgab=858) 1.1 <=5.9 RECOMMENDED COUMADIN/WARFARIN INR THERAPY RANGESSTANDARD DOSE: 2.0 - 3.0 Includes: PROPHYLAXIS forvenous thrombosis, systemic embolization; TREATMENT for venous thrombosis and/or pulmonary embolus.HIGH RISK: Target INR is 2.5-3.5 for patients with mechanical heart valves.CBC W/PLT COUNT & AUTO [id number] 05:06:00 Test Item Value Reference Range Comments WHITE BLOOD CELL COUNT (BEAKER) (test ngtt=695) 10.1 K/ L 3.5-10.5 RED BLOOD CELL COUNT (BEAKER) (test gaxw=273) 3.87 M/ L 3.93-5.22 HEMOGLOBIN (BEAKER) (test nruc=367) 12.3 GM/DL 11.2-15.7 HEMATOCRIT (BEAKER) (test vyag=444) 37.3 % 34.1-44.9 MEAN CORPUSCULAR VOLUME (BEAKER) (test chlr=610) 96.4 fL 79.4-94.8 MEAN CORPUSCULAR HEMOGLOBIN (BEAKER) (test 31.8 pg 25.6-32.2 feyx=821) MEAN CORPUSCULAR HEMOGLOBIN CONC (BEAKER) (test 33.0 GM/DL 32.2-35.5 jrcs=716) RED CELL DISTRIBUTION WIDTH (BEAKER) (test 12.5 % 11.7-14.4 xeju=903) PLATELET COUNT (BEAKER) (test hvio=637) 229 K/CU MM 150-450 MEAN PLATELET VOLUME (BEAKER) (test webn=202) 13.4 fL 9.4-12.3 NUCLEATED RED BLOOD CELLS (BEAKER) (test 0 /100 WBC 0-0 fxse=351) NEUTROPHILS RELATIVE PERCENT (BEAKER) (test 75 % oyuk=166) LYMPHOCYTES RELATIVE PERCENT (BEAKER) (test 15 % jshy=445) MONOCYTES RELATIVE PERCENT (BEAKER) (test 8 % dqij=992) EOSINOPHILS RELATIVE PERCENT (BEAKER) (test 2 % lbwi=243) BASOPHILS RELATIVE PERCENT (BEAKER) (test 0 % xyhd=407) NEUTROPHILS ABSOLUTE COUNT (BEAKER) (test 7.56 K/ L 1.56-6.13 qzil=464) LYMPHOCYTES ABSOLUTE COUNT (BEAKER) (test 1.48 K/ L 1.18-3.74 heoc=112) MONOCYTES ABSOLUTE COUNT (BEAKER) (test 0.80 K/ L 0.24-0.36 wksm=133) EOSINOPHILS ABSOLUTE COUNT (BEAKER) (test 0.20 K/ L 0.04-0.36 uemp=269) BASOPHILS ABSOLUTE COUNT (BEAKER) (test 0.02 K/ L 0.01-0.08 mwdd=576) IMMATURE GRANULOCYTES-RELATIVE PERCENT (BEAKER) 0 % 0-1 (test liqj=1976) SPUTUM CULTURE + GRAM [id number] 15:32:00 Test Item Value Reference Range Comments CULTURE (BEAKER) 4+ Haemophilus (test omgh=6289) influenzaeBeta-lactamase negative GRAM STAIN RESULT 4+ WBCs (BEAKER) (test gcxi=3112) GRAM STAIN RESULT 0-5 epithelial cells (BEAKER) (test ttnc=625132) GRAM STAIN RESULT <1+ gram positive rods (BEAKER) (test bujm=106218) GRAM STAIN RESULT 2+ gram positive cocci (BEAKER) (test in pairs lxap=865052) 4+ Normal respiratory lor presentPOCT-GLUCOSE [id number] 12:42:00 Test Item Value Reference Range Comments POC-GLUCOSE METER (BEAKER) 302 mg/dL 70-110 Notified SAMAN HERNANDEZ/TESTED AT [facility] (test xsur=9988) [address] [facility] [address] POCT-GLUCOSE [id number] 07:51:00 Test Item Value Reference Range Comments POC-GLUCOSE METER (BEAKER) 264 mg/dL 70-110 TESTED AT [facility] [address] (test izie=0767) [facility] [address] CALCIUM, [id number] 05:24:00 Test Item Value Reference Range Comments CALCIUM IONIZED (BEAKER) (test csui=718) 1.11 mmol/L 1.12-1.27 PH, BLOOD (BEAKER) (test deqe=7898) 7.47 [id number] 04:43:00 Test Item Value Reference Range Comments PHOSPHORUS (BEAKER) (test uvsi=258) 3.2 mg/dL 2.3-4.7 [id number] 04:43:00 Test Item Value Reference Range Comments MAGNESIUM (BEAKER) (test msnp=199) 1.3 mg/dL 1.6-2.6 BASIC METABOLIC [id number] 04:43:00 Test Item Value Reference Range Comments SODIUM (BEAKER) (test 137 meq/L 136-145 nmcp=239) POTASSIUM (BEAKER) (test 3.4 meq/L 3.5-5.1 kqql=594) CHLORIDE (BEAKER) (test 103 meq/L 98-107 gvny=563) CO2 (BEAKER) (test 25 meq/L 22-29 tkem=541) BLOOD UREA NITROGEN 22 mg/dL 7-21 (BEAKER) (test bwqj=437) CREATININE (BEAKER) (test 0.74 mg/dL 0.57-1.25 tuey=868) GLUCOSE RANDOM (BEAKER) 237 mg/dL 70-105 (test jecb=649) CALCIUM (BEAKER) (test 9.0 mg/dL 8.4-10.2 wfzz=252) EGFR (BEAKER) (test 79 mL/min/1.73 sq m ESTIMATED GFR IS NOT gequ=3571) ACCURATE CREATININE CLEARANCE IN PREDICTING GLOMERULAR FILTRATION RATE. ESTIMATED GFR IS NOT APPLICABLE FOR DIALYSIS PATIENTS. CBC W/PLT COUNT & AUTO [id number] 04:05:00 Test Item Value Reference Range Comments WHITE BLOOD CELL COUNT (BEAKER) (test hvdm=005) 8.1 K/ L 3.5-10.5 RED BLOOD CELL COUNT (BEAKER) (test xtaz=234) 3.43 M/ L 3.93-5.22 HEMOGLOBIN (BEAKER) (test euxb=933) 10.9 GM/DL 11.2-15.7 HEMATOCRIT (BEAKER) (test yjvn=348) 32.2 % 34.1-44.9 MEAN CORPUSCULAR VOLUME (BEAKER) (test qzdz=258) 93.9 fL 79.4-94.8 MEAN CORPUSCULAR HEMOGLOBIN (BEAKER) (test 31.8 pg 25.6-32.2 lbym=485) MEAN CORPUSCULAR HEMOGLOBIN CONC (BEAKER) (test 33.9 GM/DL 32.2-35.5 smtp=153) RED CELL DISTRIBUTION WIDTH (BEAKER) (test 13.2 % 11.7-14.4 wxaj=239) PLATELET COUNT (BEAKER) (test uerh=426) 225 K/CU MM 150-450 MEAN PLATELET VOLUME (BEAKER) (test epuh=300) 12.9 fL 9.4-12.3 NUCLEATED RED BLOOD CELLS (BEAKER) (test 0 /100 WBC 0-0 ltnm=389) NEUTROPHILS RELATIVE PERCENT (BEAKER) (test 60 % phcp=570) LYMPHOCYTES RELATIVE PERCENT (BEAKER) (test 26 % nmxd=059) MONOCYTES RELATIVE PERCENT (BEAKER) (test 8 % tujr=053) EOSINOPHILS RELATIVE PERCENT (BEAKER) (test 6 % yots=258) BASOPHILS RELATIVE PERCENT (BEAKER) (test 0 % gtlz=349) NEUTROPHILS ABSOLUTE COUNT (BEAKER) (test 4.83 K/ L 1.56-6.13 tkat=249) LYMPHOCYTES ABSOLUTE COUNT (BEAKER) (test 2.09 K/ L 1.18-3.74 emap=714) MONOCYTES ABSOLUTE COUNT (BEAKER) (test 0.66 K/ L 0.24-0.36 kqad=854) EOSINOPHILS ABSOLUTE COUNT (BEAKER) (test 0.48 K/ L 0.04-0.36 eqhv=091) BASOPHILS ABSOLUTE COUNT (BEAKER) (test 0.03 K/ L 0.01-0.08 cnvs=110) IMMATURE GRANULOCYTES-RELATIVE PERCENT (BEAKER) 0 % 0-1 (test xchx=5529) POCT-GLUCOSE [id number] 21:31:00 Test Item Value Reference Range Comments POC-GLUCOSE METER (BEAKER) 186 mg/dL 70-110 TESTED AT [address] (test joim=7453) [place] [address] POCT-GLUCOSE [id number] 18:45:00 Test Item Value Reference Range Comments POC-GLUCOSE METER (BEAKER) 215 mg/dL 70-110 TESTED AT [address] (test uctf=5848) [place] [address] POCT-GLUCOSE [id number] 12:34:00 Test Item Value Reference Range Comments POC-GLUCOSE METER (BEAKER) 428 mg/dL 70-110 Notified SAMAN HERNANDEZ/TESTED AT [facility] (test qytz=7130) [address] [place] [address] RAD, CHEST, 1 VIEW, NON [id number] 09:30:00Reason for exam:->Respiratory distress Should this be [...] Hercules Verified Date/Time: 07/12/2017 09:30:37 Reading Location: [facility] Radiology Reading Room POCT-GLUCOSE [id number] 07:54:00 Test Item Value Reference Range Comments POC-GLUCOSE METER (BEAKER) 332 mg/dL 70-110 TESTED AT [address] (test fopt=4735) [place] [address] VITAMIN [id number] 06:24:00 Test Item Value Reference Range Comments VITAMIN B12 (BEAKER) (test npvi=453) 318 pg/mL 213-816 BASIC METABOLIC [id number] 05:51:00 Test Item Value Reference Range Comments SODIUM (BEAKER) (test 141 meq/L 136-145 gepu=208) POTASSIUM (BEAKER) (test 3.6 meq/L 3.5-5.1 iuih=983) CHLORIDE (BEAKER) (test 108 meq/L 98-107 imgq=754) CO2 (BEAKER) (test 25 meq/L 22-29 nenk=396) BLOOD UREA NITROGEN 19 mg/dL 7-21 (BEAKER) (test syzz=866) CREATININE (BEAKER) (test 0.82 mg/dL 0.57-1.25 eozc=820) GLUCOSE RANDOM (BEAKER) 393 mg/dL 70-105 (test atxf=284) CALCIUM (BEAKER) (test 8.9 mg/dL 8.4-10.2 gcal=206) EGFR (BEAKER) (test 70 mL/min/1.73 sq m ESTIMATED GFR IS NOT dccl=4053) ACCURATE CREATININE CLEARANCE IN PREDICTING GLOMERULAR FILTRATION RATE. ESTIMATED GFR IS NOT APPLICABLE FOR DIALYSIS PATIENTS. CBC W/PLT COUNT & AUTO [id number] 05:26:00 Test Item Value Reference Range Comments WHITE BLOOD CELL COUNT (BEAKER) (test bjyz=379) 8.0 K/ L 3.5-10.5 RED BLOOD CELL COUNT (BEAKER) (test hmtm=256) 3.44 M/ L 3.93-5.22 HEMOGLOBIN (BEAKER) (test sbhw=881) 10.7 GM/DL 11.2-15.7 HEMATOCRIT (BEAKER) (test iqhd=391) 32.8 % 34.1-44.9 MEAN CORPUSCULAR VOLUME (BEAKER) (test bypr=424) 95.3 fL 79.4-94.8 MEAN CORPUSCULAR HEMOGLOBIN (BEAKER) (test 31.1 pg 25.6-32.2 gmlc=805) MEAN CORPUSCULAR HEMOGLOBIN CONC (BEAKER) (test 32.6 GM/DL 32.2-35.5 yesl=590) RED CELL DISTRIBUTION WIDTH (BEAKER) (test 13.5 % 11.7-14.4 iolv=800) PLATELET COUNT (BEAKER) (test ufza=450) 200 K/CU MM 150-450 MEAN PLATELET VOLUME (BEAKER) (test mlnn=550) 13.0 fL 9.4-12.3 NUCLEATED RED BLOOD CELLS (BEAKER) (test 0 /100 WBC 0-0 szpp=429) NEUTROPHILS RELATIVE PERCENT (BEAKER) (test 64 % uxrq=527) LYMPHOCYTES RELATIVE PERCENT (BEAKER) (test 22 % qbfg=264) MONOCYTES RELATIVE PERCENT (BEAKER) (test 7 % uqsw=211) EOSINOPHILS RELATIVE PERCENT (BEAKER) (test 6 % cedm=472) BASOPHILS RELATIVE PERCENT (BEAKER) (test 1 % hwey=345) NEUTROPHILS ABSOLUTE COUNT (BEAKER) (test 5.11 K/ L 1.56-6.13 xtya=062) LYMPHOCYTES ABSOLUTE COUNT (BEAKER) (test 1.73 K/ L 1.18-3.74 iiib=764) MONOCYTES ABSOLUTE COUNT (BEAKER) (test 0.59 K/ L 0.24-0.36 suhl=285) EOSINOPHILS ABSOLUTE COUNT (BEAKER) (test 0.47 K/ L 0.04-0.36 eqti=574) BASOPHILS ABSOLUTE COUNT (BEAKER) (test 0.05 K/ L 0.01-0.08 irlr=501) IMMATURE GRANULOCYTES-RELATIVE PERCENT (BEAKER) 0 % 0-1 (test pzwx=5918) POCT-GLUCOSE [id number] 22:48:00 Test Item Value Reference Range Comments POC-GLUCOSE METER (BEAKER) 376 mg/dL 70-110 Notified SAMAN HERNANDEZ/TESTED AT [facility] (test asmk=2328) [address] [place] [address] POCT-GLUCOSE [id number] 22:04:00 Test Item Value Reference Range Comments POC-GLUCOSE METER (BEAKER) 434 mg/dL 70-110 Notified SAMAN HERNANDEZ/TESTED AT [facility] (test znof=5166) [address] [place] [address] POCT-GLUCOSE [id number] 18:16:00 Test Item Value Reference Range Comments POC-GLUCOSE METER (BEAKER) 340 mg/dL 70-110 Notified SAMAN HERNANDEZ/TESTED AT [facility] (test payb=9788) [address] [place] [address] POCT-GLUCOSE [id number] 12:40:00 Test Item Value Reference Range Comments POC-GLUCOSE METER (BEAKER) 339 mg/dL 70-110 Notified SAMAN HERNANDEZ/TESTED AT [facility] (test stie=6738) [address] [place] [address] POCT-GLUCOSE [id number] 08:40:00 Test Item Value Reference Range Comments POC-GLUCOSE METER (BEAKER) 290 mg/dL 70-110 TESTED AT [address] (test lxxq=7973) [facility] [address] RAD, CHEST, 1 VIEW, NON [id number] 08:02:00Reason for exam:-> intubatedShould this be performed [...] is seen. Signed: Guy Hercules Verified Date/Time: 07/11/2017 08:02:13 Reading Location: [facility] Radiology Reading Room POCT-GLUCOSE [id number] 06:33:00 Test Item Value Reference Range Comments POC-GLUCOSE METER (BEAKER) 354 mg/dL 70-110 Notified SAMAN HERNANDEZ/TESTED AT [facility] (test iheg=3765) [address] [place] [address] BLOOD GAS, [id number] 05:30:00 Test Item Value Reference Range Comments PH ARTERIAL (BEAKER) (test oatx=461) 7.42 7.35-7.45 PCO2 ARTERIAL (BEAKER) (test etwl=650) 29 mmHg 35-45 PO2 ARTERIAL (BEAKER) (test zcce=347) 96 mmHg 80-90 O2 SATURATION ARTERIAL (BEAKER) (test cvor=170) 97.5 % 96.0-97.0 HCO3 ARTERIAL (BEAKER) (test kwwn=755) 18 mmol/L 21-29 BASE EXCESS ARTERIAL (BEAKER) (test raox=653) -5.1 mmol/L -2.0-3.0 PATIENT TEMPERATURE (BEAKER) (test pgxt=3688) 37.0 C FIO2 (BEAKER) (test vsvg=6427) 21.0 % BASIC METABOLIC [id number] 03:15:00 Test Item Value Reference Range Comments SODIUM (BEAKER) (test 138 meq/L 136-145 uukx=488) POTASSIUM (BEAKER) (test 3.9 meq/L 3.5-5.1 fkxq=954) CHLORIDE (BEAKER) (test 109 meq/L 98-107 pmga=171) CO2 (BEAKER) (test 18 meq/L 22-29 rcwi=605) BLOOD UREA NITROGEN 18 mg/dL 7-21 (BEAKER) (test slmw=636) CREATININE (BEAKER) (test 0.79 mg/dL 0.57-1.25 zzqe=869) GLUCOSE RANDOM (BEAKER) 349 mg/dL 70-105 (test kobb=626) CALCIUM (BEAKER) (test 8.2 mg/dL 8.4-10.2 ndte=533) EGFR (BEAKER) (test 73 mL/min/1.73 sq m ESTIMATED GFR IS NOT qsar=7807) ACCURATE CREATININE CLEARANCE IN PREDICTING GLOMERULAR FILTRATION RATE. ESTIMATED GFR IS NOT APPLICABLE FOR DIALYSIS PATIENTS. BLOOD GAS, [id number] 03:03:00 Test Item Value Reference Range Comments PH ARTERIAL (BEAKER) (test lptl=398) 7.46 7.35-7.45 PCO2 ARTERIAL (BEAKER) (test fitg=931) 31 mmHg 35-45 PO2 ARTERIAL (BEAKER) (test wvce=822) 62 mmHg 80-90 O2 SATURATION ARTERIAL (BEAKER) (test kksw=303) 93.1 % 96.0-97.0 HCO3 ARTERIAL (BEAKER) (test tdck=886) 21 mmol/L 21-29 BASE EXCESS ARTERIAL (BEAKER) (test xpxz=316) -1.6 mmol/L -2.0-3.0 PATIENT TEMPERATURE (BEAKER) (test csqj=4188) 37.0 C FIO2 (BEAKER) (test trbz=1482) 60.0 % CBC W/PLT COUNT & AUTO [id number] 03:03:00 Test Item Value Reference Range Comments WHITE BLOOD CELL COUNT (BEAKER) (test tbof=008) 11.5 K/ L 3.5-10.5 RED BLOOD CELL COUNT (BEAKER) (test wxyz=954) 3.57 M/ L 3.93-5.22 HEMOGLOBIN (BEAKER) (test rlmb=298) 11.0 GM/DL 11.2-15.7 HEMATOCRIT (BEAKER) (test ugrg=084) 33.3 % 34.1-44.9 MEAN CORPUSCULAR VOLUME (BEAKER) (test piqj=748) 93.3 fL 79.4-94.8 MEAN CORPUSCULAR HEMOGLOBIN (BEAKER) (test 30.8 pg 25.6-32.2 fior=398) MEAN CORPUSCULAR HEMOGLOBIN CONC (BEAKER) (test 33.0 GM/DL 32.2-35.5 gyxo=110) RED CELL DISTRIBUTION WIDTH (BEAKER) (test 13.4 % 11.7-14.4 bjjr=871) PLATELET COUNT (BEAKER) (test zeya=900) 181 K/CU MM 150-450 MEAN PLATELET VOLUME (BEAKER) (test hdhs=658) 13.1 fL 9.4-12.3 NUCLEATED RED BLOOD CELLS (BEAKER) (test 0 /100 WBC 0-0 ispu=044) NEUTROPHILS RELATIVE PERCENT (BEAKER) (test 87 % veuq=100) LYMPHOCYTES RELATIVE PERCENT (BEAKER) (test 6 % opyf=788) MONOCYTES RELATIVE PERCENT (BEAKER) (test 5 % irpp=118) EOSINOPHILS RELATIVE PERCENT (BEAKER) (test 1 % sqrc=569) BASOPHILS RELATIVE PERCENT (BEAKER) (test 1 % yyxl=625) NEUTROPHILS ABSOLUTE COUNT (BEAKER) (test 9.98 K/ L 1.56-6.13 pbxu=514) LYMPHOCYTES ABSOLUTE COUNT (BEAKER) (test 0.67 K/ L 1.18-3.74 iuad=550) MONOCYTES ABSOLUTE COUNT (BEAKER) (test 0.56 K/ L 0.24-0.36 pofg=072) EOSINOPHILS ABSOLUTE COUNT (BEAKER) (test 0.12 K/ L 0.04-0.36 edoz=289) BASOPHILS ABSOLUTE COUNT (BEAKER) (test 0.07 K/ L 0.01-0.08 pgbg=516) IMMATURE GRANULOCYTES-RELATIVE PERCENT (BEAKER) 1 % 0-1 (test nzjh=6655) POCT-GLUCOSE [id number] 00:49:00 Test Item Value Reference Range Comments POC-GLUCOSE METER (BEAKER) 301 mg/dL 70-110 Notified SAMAN HERNANDEZ/TESTED AT [facility] (test kcap=9816) [address] [place] [id number] TROPONIN [id number] 00:36:00 Test Item Value Reference Range Comments TROPONIN I (BEAKER) (test fmbw=048) 0.17 ng/mL 0.00-0.03 Troponin I (TnI) levels [...] and persistent tachyarrhythmia.CREATINE KINASE (CK), TOTAL AND [id number] 00:33:00 Test Item Value Reference Range Comments CREATINE KINASE TOTAL (BEAKER) (test tmwl=887) 168 U/L 29-200 CREATINE KINASE-MB (BEAKER) (test xcla=248) 1.2 ng/mL 0.0-6.6 CREATINE KINASE-MB INDEX (BEAKER) (test spjk=593) 0.7 % CK-MB Reference Range:<6.7 Normal6.7-10.0 Borderline>10.0 AbnormalPOCT-GLUCOSE [id number] 18:13:00 Test Item Value Reference Range Comments POC-GLUCOSE METER (BEAKER) 302 mg/dL 70-110 TESTED AT [address] (test xrpc=8816) [facility] [id number] TROPONIN [id number] 17:15:00 Test Item Value Reference Range Comments TROPONIN I (BEAKER) (test hqat=959) 0.32 ng/mL 0.00-0.03 Troponin I (TnI) levels [...] and persistent tachyarrhythmia.CREATINE KINASE (CK), TOTAL AND [id number] 17:05:00 Test Item Value Reference Range Comments CREATINE KINASE TOTAL (BEAKER) (test bkey=123) 213 U/L 29-200 CREATINE KINASE-MB (BEAKER) (test iowk=466) 2.1 ng/mL 0.0-6.6 CREATINE KINASE-MB INDEX (BEAKER) (test gkjc=508) 1.0 % CK-MB Reference Range:<6.7 Normal6.7-10.0 Borderline>10.0 AbnormalPOCT-GLUCOSE [id number] 12:22:00 Test Item Value Reference Range Comments POC-GLUCOSE METER (BEAKER) 240 mg/dL 70-110 TESTED AT [address] (test feak=3386) [place] [id number] B-TYPE NATRIURETIC FACTOR (BNP)[id number] 12:01:00 Test Item Value Reference Range Comments B-TYPE NATRIURETIC PEPTIDE (BEAKER) (test 524 pg/mL 0-100 eyds=813) POCT-GLUCOSE [id number] 06:33:00 Test Item Value Reference Range Comments POC-GLUCOSE METER (BEAKER) 227 mg/dL 70-110 TESTED AT [address] (test htnp=7363) [place] [id number] COMPREHENSIVE METABOLIC [id number] 06:19:00 Test Item Value Reference Range Comments TOTAL PROTEIN (BEAKER) 6.7 gm/dL 6.0-8.3 (test xwlf=533) ALBUMIN (BEAKER) (test 3.2 g/dL 3.5-5.0 dloy=3150) ALKALINE PHOSPHATASE 77 U/L 40-150 (BEAKER) (test pszp=783) BILIRUBIN TOTAL (BEAKER) 0.9 mg/dL 0.2-1.2 (test scte=251) SODIUM (BEAKER) (test 139 meq/L 136-145 wmqy=854) POTASSIUM (BEAKER) (test 3.7 meq/L 3.5-5.1 qhui=409) CHLORIDE (BEAKER) (test 109 meq/L 98-107 ylez=632) CO2 (BEAKER) (test 18 meq/L 22-29 ykkp=801) BLOOD UREA NITROGEN 13 mg/dL 7-21 (BEAKER) (test axbz=727) CREATININE (BEAKER) (test 0.69 mg/dL 0.57-1.25 jttb=893) GLUCOSE RANDOM (BEAKER) 250 mg/dL 70-105 (test uyov=227) CALCIUM (BEAKER) (test 8.0 mg/dL 8.4-10.2 yqif=238) AST (SGOT) (BEAKER) (test 18 U/L 5-34 euzf=205) ALT (SGPT) (BEAKER) (test 13 U/L 6-55 fewo=008) EGFR (BEAKER) (test 85 mL/min/1.73 sq m ESTIMATED GFR IS NOT dday=8509) ACCURATE CREATININE CLEARANCE IN PREDICTING GLOMERULAR FILTRATION RATE. ESTIMATED GFR IS NOT APPLICABLE FOR DIALYSIS PATIENTS. BASIC METABOLIC [id number] 06:19:00 Test Item Value Reference Range Comments SODIUM (BEAKER) (test 139 meq/L 136-145 nupa=050) POTASSIUM (BEAKER) (test 3.7 meq/L 3.5-5.1 uyeg=775) CHLORIDE (BEAKER) (test 109 meq/L 98-107 lnmn=727) CO2 (BEAKER) (test 18 meq/L 22-29 dzht=929) BLOOD UREA NITROGEN 13 mg/dL 7-21 (BEAKER) (test ybjr=069) CREATININE (BEAKER) (test 0.69 mg/dL 0.57-1.25 agjt=561) GLUCOSE RANDOM (BEAKER) 250 mg/dL 70-105 (test ndpy=585) CALCIUM (BEAKER) (test 8.0 mg/dL 8.4-10.2 xnss=319) EGFR (BEAKER) (test 85 mL/min/1.73 sq m ESTIMATED GFR IS NOT mgwo=7369) ACCURATE CREATININE CLEARANCE IN PREDICTING GLOMERULAR FILTRATION RATE. ESTIMATED GFR IS NOT APPLICABLE FOR DIALYSIS PATIENTS. BLOOD GAS, [id number] 06:13:00 Test Item Value Reference Range Comments PH ARTERIAL (BEAKER) (test suht=987) 7.42 7.35-7.45 PCO2 ARTERIAL (BEAKER) (test wtpa=795) 34 mmHg 35-45 PO2 ARTERIAL (BEAKER) (test tkmy=437) 106 mmHg 80-90 O2 SATURATION ARTERIAL (BEAKER) (test xaez=508) 98.0 % 96.0-97.0 HCO3 ARTERIAL (BEAKER) (test hjof=789) 22 mmol/L 21-29 BASE EXCESS ARTERIAL (BEAKER) (test isvw=686) -2.3 mmol/L -2.0-3.0 PATIENT TEMPERATURE (BEAKER) (test eezi=2631) 37.0 C FIO2 (BEAKER) (test vvkw=8438) 50.0 % CBC W/PLT COUNT & AUTO [id number] 05:53:00 Test Item Value Reference Range Comments WHITE BLOOD CELL COUNT (BEAKER) (test fqfi=534) 12.9 K/ L 3.5-10.5 RED BLOOD CELL COUNT (BEAKER) (test kyul=004) 3.78 M/ L 3.93-5.22 HEMOGLOBIN (BEAKER) (test clmd=840) 11.9 GM/DL 11.2-15.7 HEMATOCRIT (BEAKER) (test puua=535) 35.5 % 34.1-44.9 MEAN CORPUSCULAR VOLUME (BEAKER) (test rsws=289) 93.9 fL 79.4-94.8 MEAN CORPUSCULAR HEMOGLOBIN (BEAKER) (test 31.5 pg 25.6-32.2 hryf=730) MEAN CORPUSCULAR HEMOGLOBIN CONC (BEAKER) (test 33.5 GM/DL 32.2-35.5 mbmc=805) RED CELL DISTRIBUTION WIDTH (BEAKER) (test 13.5 % 11.7-14.4 nive=621) PLATELET COUNT (BEAKER) (test tdok=847) 198 K/CU MM 150-450 MEAN PLATELET VOLUME (BEAKER) (test pwef=040) 12.7 fL 9.4-12.3 NUCLEATED RED BLOOD CELLS (BEAKER) (test 0 /100 WBC 0-0 rzit=233) NEUTROPHILS RELATIVE PERCENT (BEAKER) (test 77 % zeri=104) LYMPHOCYTES RELATIVE PERCENT (BEAKER) (test 14 % tzuf=469) MONOCYTES RELATIVE PERCENT (BEAKER) (test 7 % fapf=844) EOSINOPHILS RELATIVE PERCENT (BEAKER) (test 2 % ypzf=278) BASOPHILS RELATIVE PERCENT (BEAKER) (test 0 % eiih=118) NEUTROPHILS ABSOLUTE COUNT (BEAKER) (test 9.92 K/ L 1.56-6.13 fbtr=883) LYMPHOCYTES ABSOLUTE COUNT (BEAKER) (test 1.74 K/ L 1.18-3.74 zbhs=709) MONOCYTES ABSOLUTE COUNT (BEAKER) (test 0.85 K/ L 0.24-0.36 azis=056) EOSINOPHILS ABSOLUTE COUNT (BEAKER) (test 0.22 K/ L 0.04-0.36 wvsr=868) BASOPHILS ABSOLUTE COUNT (BEAKER) (test 0.05 K/ L 0.01-0.08 eqnp=873) IMMATURE GRANULOCYTES-RELATIVE PERCENT (BEAKER) 1 % 0-1 (test wzij=5931) LACTIC ACID, ARTERIAL, WHOLE [id number] 05:17:00 Test Item Value Reference Range Comments LACTATE BLOOD ARTERIAL (2) (BEAKER) (test 0.8 mmol/L 0.5-2.2 eouq=9829) Effective 09/02/2015: Units/Reference Range ChangeNew: 0.5-2.2 mmol/L Previous: 5 -20 mg/dLRAD, CHEST, 1 VIEW, NON [id number] 03:58:00Reason for exam:-> concern for aspirationShould this be performed at the bedside?->YesFINAL REPORT RAD, CHEST, 1 VIEW, NON DEPT INDICATION: concern for aspiration COMPARISON: Prior day's exam TECHNIQUE: Portable frontal view of the chest. IMPRESSION: Interval extubation.Stable cardiomegaly.Worsening pulmonary interstitial edema.No pneumothorax.No acute osseous abnormality. Signed: Jb Veronica MDReport Verified Date/Time: 07/10/2017 03:58:42 Reading Location: [address] Ortho Consult Reading Room CT, BRAIN, WITHOUT [id number] 03:09:00Reason for exam:->Stroke evaluationFINAL REPORT CT, BRAIN, [...] MDReport Verified Date/Time: 07/10/2017 03:09:32 Reading Location: [facility] B1 C013X Ortho Consult Reading Room POCT- GLUCOSE [id number] 00:20:00 Test Item Value Reference Range Comments POC-GLUCOSE METER (BEAKER) 200 mg/dL 70-110 TESTED AT [address] (test ofmj=3624) [facility] [address] POCT-GLUCOSE [id number] 20:32:00 Test Item Value Reference Range Comments POC-GLUCOSE METER (BEAKER) 237 mg/dL 70-110 TESTED AT [address] (test rzyu=0085) [facility] [address] URINALYSIS W/ [id number] 20:08:00 Test Item Value Reference Range Comments COLOR (BEAKER) (test lrlf=680) Light Yellow CLARITY (BEAKER) (test jxbx=556) Clear SPECIFIC GRAVITY UA (BEAKER) (test ucul=921) 1.009 1.001-1.035 PH UA (BEAKER) (test hrtc=247) 5.5 5.0-8.0 PROTEIN UA (BEAKER) (test xtdw=266) 70 mg/dL Negative GLUCOSE UA (BEAKER) (test rljz=938) 50 mg/dL Negative KETONES UA (BEAKER) (test eeoh=553) Negative Negative BILIRUBIN UA (BEAKER) (test lrkn=224) Negative Negative BLOOD UA (BEAKER) (test lxbo=198) Negative Negative NITRITE UA (BEAKER) (test juwa=902) Negative Negative LEUKOCYTE ESTERASE UA (BEAKER) (test zrke=144) Trace Negative UROBILINOGEN UA (BEAKER) (test zlmm=919) 0.2 mg/dL 0.2-1.0 RBC UA (BEAKER) (test mqtq=993) < /HPF WBC UA (BEAKER) (test sbvm=808) 25 /HPF BACTERIA (BEAKER) (test qrse=104) Rare MUCUS (BEAKER) (test zoau=8141) Rare SQUAMOUS EPITHELIAL (BEAKER) (test yfxi=456) 1 /HPF SOURCE(BEJOSE) (test qtaz=9006) POCT-GLUCOSE [id number] 18:44:00 Test Item Value Reference Range Comments POC-GLUCOSE METER (BEAKER) 174 mg/dL 70-110 TESTED AT [facility] [address] [facility] [facility] (test ocri=1905) [place] [address] HEMOGLOBIN [id number] 14:47:00 Test Item Value Reference Range Comments HEMOGLOBIN A1C (BINH) (test hnbk=667) 12.4 % 4.3-6.1 POCT-GLUCOSE [id number] 11:44:00 Test Item Value Reference Range Comments POC-GLUCOSE METER (BEAKER) 149 mg/dL 70-110 TESTED AT [address] (test fiem=3030) [place] [address] RAD, CHEST, 1 VIEW, NON [id number] 07:42:00Reason for exam:-> intubatedShould this be performed [...] right lower lobe subsegmental atelectasis. Signed: Clovis Fischerag Verified Date/ Time: 07/09/2017 07:42:12 Reading Location: [facility] B1 C013Y CT Body Reading Room CT BRAIN WITHOUT IV CONTRAST - [id number] 07:37:00Reason for exam:->L. MCA strokeFINAL REPORT CT [...] distribution infarction without hemorrhage. Signed: Rossi Fry MDReport Verified Date/Time: 07/09/2017 07:37:39 Reading Location: [facility] B1 C013V Neuro Reading Room TSH/FREE T4 IF [id number] 05:41:00 Test Item Value Reference Range Comments THYROID STIMULATING HORMONE (BEAKER) (test 0.60 uIU/mL 0.35-4.94 tbxt=938) BASIC METABOLIC [id number] 04:33:00 Test Item Value Reference Range Comments SODIUM (BEAKER) (test 138 meq/L 136-145 aels=257) POTASSIUM (BEAKER) (test 3.4 meq/L 3.5-5.1 yyqn=410) CHLORIDE (BEAKER) (test 107 meq/L 98-107 jgeu=180) CO2 (BEAKER) (test 20 meq/L 22-29 bqxn=112) BLOOD UREA NITROGEN 17 mg/dL 7-21 (BEAKER) (test jntx=464) CREATININE (BEAKER) (test 0.68 mg/dL 0.57-1.25 zgoh=522) GLUCOSE RANDOM (BEAKER) 118 mg/dL 70-105 (test quce=653) CALCIUM (BEAKER) (test 7.9 mg/dL 8.4-10.2 laeh=323) EGFR (BEAKER) (test mL/min/1.73 sq m INSUFFICIENT CLINICAL DATA ptpv=3646) TO CALCULATE ESTIMATED GFR. LIPID [id number] 04:30:00 Test Item Value Reference Range Comments TRIGLYCERIDES (BEAKER) (test peib=479) 300 mg/dL CHOLESTEROL (BEAKER) (test xsql=980) 204 mg/dL HDL CHOLESTEROL (BEAKER) (test lxew=728) 33 mg/dL LDL CHOLESTEROL CALCULATED (BEAKER) (test 111 mg/dL qwyr=414) Triglyceride Reference Range: Low Risk <150 Borderline 150- 199 High Risk 200-499 Very High Risk >=500Cholesterol Reference Range: Low Risk <200 Borderline 200-239 High Risk > 240HDL Cholesterol Reference Range: Low Risk >=60 High Risk <40LDL Cholesterol Reference Range: Optimal <100 Near Optimal 100-129 Borderline 130-159 High 160-189 Very High >=190BLOOD GAS, [id number] 04:11:00 Test Item Value Reference Range Comments PH ARTERIAL (BEAKER) (test bsmz=556) 7.42 7.35-7.45 PCO2 ARTERIAL (BEAKER) (test onlv=242) 37 mmHg 35-45 PO2 ARTERIAL (BEAKER) (test zzji=094) 90 mmHg 80-90 O2 SATURATION ARTERIAL (BEAKER) (test tzmc=913) 97.1 % 96.0-97.0 HCO3 ARTERIAL (BEAKER) (test uyyq=467) 24 mmol/L 21-29 BASE EXCESS ARTERIAL (BEAKER) (test bbkd=718) -0.6 mmol/L -2.0-3.0 PATIENT TEMPERATURE (BEAKER) (test qqqz=6777) 37.0 C FIO2 (BEAKER) (test klls=0619) 40.0 % CBC W/PLT COUNT & AUTO [id number] 04:10:00 Test Item Value Reference Range Comments WHITE BLOOD CELL COUNT (BEAKER) (test vmof=183) 12.9 K/ L 3.5-10.5 RED BLOOD CELL COUNT (BEAKER) (test hgnn=354) 3.88 M/ L 3.93-5.22 HEMOGLOBIN (BEAKER) (test meai=771) 12.0 GM/DL 11.2-15.7 HEMATOCRIT (BEAKER) (test vzaa=687) 35.8 % 34.1-44.9 MEAN CORPUSCULAR VOLUME (BEAKER) (test yizd=441) 92.3 fL 79.4-94.8 MEAN CORPUSCULAR HEMOGLOBIN (BEAKER) (test 30.9 pg 25.6-32.2 qqze=280) MEAN CORPUSCULAR HEMOGLOBIN CONC (BEAKER) (test 33.5 GM/DL 32.2-35.5 rgvd=129) RED CELL DISTRIBUTION WIDTH (BEAKER) (test 13.4 % 11.7-14.4 xgmu=191) PLATELET COUNT (BEAKER) (test fcgd=725) 203 K/CU MM 150-450 MEAN PLATELET VOLUME (BEAKER) (test cyrc=990) 12.7 fL 9.4-12.3 NUCLEATED RED BLOOD CELLS (BEAKER) (test 0 /100 WBC 0-0 mhzw=220) NEUTROPHILS RELATIVE PERCENT (BEAKER) (test 75 % qlus=996) LYMPHOCYTES RELATIVE PERCENT (BEAKER) (test 18 % hiyy=949) MONOCYTES RELATIVE PERCENT (BEAKER) (test 6 % qpah=815) EOSINOPHILS RELATIVE PERCENT (BEAKER) (test 1 % ckon=420) BASOPHILS RELATIVE PERCENT (BEAKER) (test 0 % yamz=762) NEUTROPHILS ABSOLUTE COUNT (BEAKER) (test 9.66 K/ L 1.56-6.13 ffrz=659) LYMPHOCYTES ABSOLUTE COUNT (BEAKER) (test 2.30 K/ L 1.18-3.74 kpyj=919) MONOCYTES ABSOLUTE COUNT (BEAKER) (test 0.76 K/ L 0.24-0.36 dzdw=611) EOSINOPHILS ABSOLUTE COUNT (BEAKER) (test 0.10 K/ L 0.04-0.36 hary=459) BASOPHILS ABSOLUTE COUNT (BEAKER) (test 0.04 K/ L 0.01-0.08 okvw=409) IMMATURE GRANULOCYTES-RELATIVE PERCENT (BEAKER) 0 % 0-1 (test arde=6696) BASIC METABOLIC [id number] 23:50:00 Test Item Value Reference Range Comments SODIUM (BEAKER) (test 139 meq/L 136-145 htty=461) POTASSIUM (BEAKER) (test 3.5 meq/L 3.5-5.1 pmzv=309) CHLORIDE (BEAKER) (test 106 meq/L 98-107 lpzl=451) CO2 (BEAKER) (test 22 meq/L 22-29 hlgb=302) BLOOD UREA NITROGEN 19 mg/dL 7-21 (BEAKER) (test ybzd=835) CREATININE (BEAKER) (test 0.68 mg/dL 0.57-1.25 xhnx=925) GLUCOSE RANDOM (BEAKER) 114 mg/dL 70-105 (test nfyf=949) CALCIUM (BEAKER) (test 8.2 mg/dL 8.4-10.2 refi=562) EGFR (BEAKER) (test mL/min/1.73 sq m INSUFFICIENT CLINICAL DATA pdof=3006) TO CALCULATE ESTIMATED GFR. HEPATIC FUNCTION [id number] 23:26:00 Test Item Value Reference Range Comments TOTAL PROTEIN (BEAKER) (test dpuk=130) 6.7 gm/dL 6.0-8.3 ALBUMIN (BEAKER) (test sdic=1740) 3.3 g/dL 3.5-5.0 BILIRUBIN TOTAL (BEAKER) (test imkd=831) 0.4 mg/dL 0.2-1.2 BILIRUBIN DIRECT (BEAKER) (test cenr=101) 0.2 mg/dL 0.1-0.5 ALKALINE PHOSPHATASE (BEAKER) (test wzki=673) 76 U/L 40-150 AST (SGOT) (BEAKER) (test bzlr=900) 22 U/L 5-34 ALT (SGPT) (BEAKER) (test svdo=057) 16 U/L 6-55 CBC W/PLT COUNT & AUTO [id number] 23:25:00 Test Item Value Reference Range Comments WHITE BLOOD CELL COUNT (BEAKER) (test urss=004) 14.1 K/ L 3.5-10.5 RED BLOOD CELL COUNT (BEAKER) (test gamr=090) 4.01 M/ L 3.93-5.22 HEMOGLOBIN (BEAKER) (test oibf=573) 12.6 GM/DL 11.2-15.7 HEMATOCRIT (BEAKER) (test ksmc=761) 36.7 % 34.1-44.9 MEAN CORPUSCULAR VOLUME (BEAKER) (test jhwl=188) 91.5 fL 79.4-94.8 MEAN CORPUSCULAR HEMOGLOBIN (BEAKER) (test 31.4 pg 25.6-32.2 xtmr=970) MEAN CORPUSCULAR HEMOGLOBIN CONC (BEAKER) (test 34.3 GM/DL 32.2-35.5 rmrc=883) RED CELL DISTRIBUTION WIDTH (BEAKER) (test 13.2 % 11.7-14.4 dexd=255) PLATELET COUNT (BEAKER) (test bzvl=362) 212 K/CU MM 150-450 MEAN PLATELET VOLUME (BEAKER) (test vqmm=242) 12.6 fL 9.4-12.3 NUCLEATED RED BLOOD CELLS (BEAKER) (test 0 /100 WBC 0-0 pjfd=749) NEUTROPHILS RELATIVE PERCENT (BEAKER) (test 78 % ygfj=537) LYMPHOCYTES RELATIVE PERCENT (BEAKER) (test 15 % wbxo=525) MONOCYTES RELATIVE PERCENT (BEAKER) (test 7 % kvbi=080) EOSINOPHILS RELATIVE PERCENT (BEAKER) (test 1 % mobn=442) BASOPHILS RELATIVE PERCENT (BEAKER) (test 0 % gpmr=659) NEUTROPHILS ABSOLUTE COUNT (BEAKER) (test 10.90 K/ L 1.56-6.13 gjis=095) LYMPHOCYTES ABSOLUTE COUNT (BEAKER) (test 2.10 K/ L 1.18-3.74 gyud=730) MONOCYTES ABSOLUTE COUNT (BEAKER) (test 0.92 K/ L 0.24-0.36 ugek=186) EOSINOPHILS ABSOLUTE COUNT (BEAKER) (test 0.09 K/ L 0.04-0.36 cims=076) BASOPHILS ABSOLUTE COUNT (BEAKER) (test 0.03 K/ L 0.01-0.08 yvau=258) IMMATURE GRANULOCYTES-RELATIVE PERCENT (BEAKER) 0 % 0-1 (test xvfc=0379) PROTHROMBIN TIME/[id number] 23:12:00 Test Item Value Reference Range Comments PROTIME (BEAKER) (test xrzx=107) 14.2 seconds 11.7-14.7 INR (BEAKER) (test ookl=416) 1.1 <=5.9 RECOMMENDED COUMADIN/WARFARIN INR THERAPY RANGESSTANDARD DOSE: 2.0 - 3.0 Includes: PROPHYLAXIS forvenous thrombosis, systemic embolization; TREATMENT for venous thrombosis and/or pulmonary embolus.HIGH RISK: Target INR is 2.5-3.5 for patients with mechanical heart valves.POCT-GLUCOSE [id number] 21:38:00 Test Item Value Reference Range Comments POC-GLUCOSE METER (BEAKER) 94 mg/dL 70-110 TESTED AT [facility] [address] [facility] (test euot=0111) [place] [address] VAN, COMMON CAROTID OR INNOMINATE W EXTRACRANIAL CIRC.2017-07-08 18:24:00Reason for exam:->ischemic stroke; possible mechanical thrombectomyFINAL REPORT DATE: 07/08/2017 ATTENDING: Tristen Thapa MD ASSISTANTS : Hill HERNANDEZ, Eleno Solorzano [...] common femoral artery x1 MATERIALS EMPLOYED:1. 8 Nigerien short sheath 2. 5 Nigerien 125cm diagnostic catheter3. Bentson guidewire4. Terumo 0.035 LT glidewire5. Flowgate 8f Balloon Guide Catheter8. 8 Nigerien Angioseal device INDICATIONS:The patient is a 67-year- old female with history of hypertension, diabetes and prior stroke who presented with acute onset aphasia in her hometown of [place] around 11:00 AM. She was evaluated and transferred to [facility] for further evaluation treatment. On arrival, the [...] the puncture site was confirmed, a 8 Nigerien short sheath was inserted over a [employer] wire and was maintained on heparinized saline flush throughout the remainder of the procedure. Using coaxial technique, a preflushed 5 Nigerien 125cm diagnostic glide catheter on constant heparinized saline flush was placed through a pre- flushed and pre-prepped 8 Nigerien Flowgate balloon Guide catheter. The two catheters [...] seen. We then removed the flowgate from thecirculation. The femoral sheath was removed and hemostasis achieved with an 8 Nigerien Angioseal and manual compression. The patient tolerated [...] proximal M2 inferiordivision origin remains. FACULTY ATTESTATION: Tristen Watson M.D., was present for the entirety of the procedure. I performed or directly supervised all aspects of the procedure. I performed allcritical aspects of the case. I interpreted the images and reported the results. Signed: Tristen Thapa MDReport Verified Date/Time: 07/08/2017 18: 24:25 Reading Location: [facility] Y8 Neuro Angio Reading Room CTCAT [id number] 15:00:00FINAL REPORT CLINICAL HISTORY: Stroke TECHNIQUE: Contiguous [...] FINDINGS: There is no evidence for a marshall of Steele first order branch vessel occlusion. [...] on a nonemergent basis. Signed: Rossi Fry MDReport Verified Date/Time: 2017 15:00:43 Reading Location: [address] Neuro Reading Room CT, CAROTID , [id number] 15:00:00FINAL REPORT CLINICAL HISTORY: Stroke TECHNIQUE: Contiguous [...] FINDINGS: There is no evidence for a marshall of Steele first order branch vessel occlusion. [...] on a nonemergent basis. Signed: Rossi Fry MDReport Verified Date/Time: 2017 15:00:43 Reading Location: [address] Neuro Reading Room CT, CEREBRAL PERFUSION [id number] 15:00:00FINAL REPORT CLINICAL HISTORY: Stroke TECHNIQUE: Contiguous [...] FINDINGS: There is no evidence for a marshall of Steele first order branch vessel occlusion. [...] on a nonemergent basis. Signed: Rossi Fry MDReport Verified Date/ Time: 07/08/2017 15:00:43 Reading Location: [address] Neuro [facility]OKE [id number] 14:24:00FINAL REPORT CT Head without contrast CLINICAL [...] neurologist at 2:25 PM. Signed: Rossi Fry MDReport Verified Date/Time: 07/08/2017 14:24:44 Reading Location: [address] Neuro Reading Room
[2018-06-14] MEDS ORDERED: NA CHLORIDE 0.9% 1,000 ML ONE (11:12)
[2018-06-14] MEDS ORDERED: D5 0.9 NS 1,000 ML IV ONE (11:34)
[2018-06-14] MEDS ORDERED: NALOXONE 0.4 MG/ML VIAL ONE (11:46)
[2018-06-14 11:49] LABS: Absolute Lymphocytes (CBC) 1.6 K/uL (0.7-4.9); Absolute Monocytes 0.8 K/uL (0.1-1.3); Absolute Neutrophil 4.2 K/uL (1.8-8.0); Basophils % 0.9 % (0-1.3); Eosinophils % 0.7 % (0-4.4); Hematocrit 25.2 % (36.0-45.0); Lymphocytes % 24.4 % (15.3-44.8); MPV 10.6 fL (7.6-11.3); Monocytes % 11.4 % (3.3-12.3); RBC Red Blood Cell Count 2.78 M/uL (3.86-4.86)
[2018-06-14 12:07] LABS: Albumin 2.6 g/dL (3.4-5.0); Bilirubin Direct 0.1 mg/dL (0-0.2); Bilirubin Total 0.4 mg/dL (0.2-1.0); Potassium 4.1 mmol/L (3.5-5.1); Protein, Total 7.7 g/dL (6.4-8.2)
--- NOTE | 2018-06-14 12:26 | RAD REPORT ---
EXAM DESCRIPTION: CT - Head C Spine Mpr Wo Con - 06/14/2018 12:10 pm CLINICAL HISTORY: Alteration of awareness/confusion/neck pain COMPARISON: 2018 TECHNIQUE: Computed axial tomography of the head and cervical spine was obtained. Sagittal and coronal reconstruction was performed. All CT scans are performed using dose optimization technique as appropriate and may include automated exposure control or mA/KV adjustment according to patient size. FINDINGS: An intracranial bleed is not seen. Mild low-density areas within periventricular, deep and subcortical white matter may represent ischemic changes secondary to small vessel disease. The ventricles are normal in caliber. An extra-axial fluid collection is not noted mild chronic sinus itis A cervical fracture is not visualized. No dislocation is noted. Spondylosis C5-6 results in mild to m oderate central spinal stenosis IMPRESSION: No acute intracranial abnormality is seen. A cervical fracture is not visualized. If the patient continues to have symptoms to suggest intracra nial /spinal cord pathology/spinal canal then MRI would be recommended
--- NOTE | 2018-06-14 12:35 | EKG ---
Test Date: 2018-06-14 Test Time: 11:41:29 Boring And Filling Machine Operator: ZAC MEASUREMENT RESULTS: Intervals: Rate: 64 WA: 154 QRSD: 74 QT: 444 QTc: 458 [place]: P: 52 WA: 154 QRS: 13 T: 143 INTERPRETIVE STATEMENTS: Normal sinus rhythm ST & T wave abnormality, consider lateral ischemia Abnormal ECG Compared to ECG 01/01/2018 15:03:07 ST (T wave) deviation now present Possible ischemia now present Myocardial infarct finding no longer present Prolonged QT interval no longer present Electronically Signed On 06-14-18 12:35:33 [employer]ING DEVELOPER by Tod Benjamin
--- NOTE | 2018-06-14 12:58 | ER ---
Nurse's Notes [facility] Name: Apoorva Christie Age: 68 yrs Sex: Female : 1950 Arrival Date: 06/14/2018 Time: 10:51 Bed 4 Private MD: Diagnosis: Hypoglycemia, unspecified;Influenza due to identified novel influenza A virus;Altered mental status, unspecified Presentation: 06/14 10:52 Presenting complaint: EMS states: Pt. is from [facility], called EMS for hypoglycemia rb1 BS 58, facility administered glucose gel, BS went to 495, Recheck BS was 57. BP 157/88, P 71, 78% RA, put on 3 L 93-95%. Has dialysis on MWF. Pt. is at normal baseline. History of CVA with memory loss. BGL 77, SR 58-60's. Pt. spent 47 days at [facility] in the ICU for an infected left ankle. Transition of care: patient was received from another setting of care (long-term care facility), [facility]. Onset of symptoms was June 14, 2018 at 10:30. Risk Assessment: Do you want to hurt yourself or someone else? Patient reports no desire to harm self or others. Care prior to arrival: Glucose gel. 10:52 Method Of Arrival: EMS: [facility] rb1 10:52 Acuity: AWA 2 rb1 12:05 Initial Sepsis Screen: Does the patient meet any 2 criteria? Altered Mental Status. sg Does the patient have a suspected source of infection? Yes: Skin breakdown/wound. Triage Assessment: 10:52 General: Appears distressed, Behavior is anxious. Pain: Complains of pain in buttocks rb1 Pain currently is 8 out of 10 on a pain scale. Neuro: Level of Consciousness is confused, Oriented to person. Cardiovascular: Capillary refill < 3 seconds is brisk in bilateral fingers. Respiratory: Airway is patent Respiratory effort is even, unlabored, Respiratory pattern is regular, symmetrical. GI: No signs and/or symptoms were reported involving the gastrointestinal system. Derm: Skin is pink, warm \T\ dry. 10:52 : No signs and/or symptoms were reported regarding the genitourinary system. rb1 Historical: - Allergies: 10:52 codeine sulfate; rb1 - PMHx: 10:52 brain blockage; Cirrhosis; CVA; Diabetes - IDDM; Hypertension; meningitis; progressive rb1 tremors; - PSHx: 10:52 Cholecystectomy; Knee surgery; ; Hysterectomy; rb1 - Immunization history:: Adult Immunizations up to date. - Social history:: Smoking status: Patient/guardian denies using tobacco. - Ebola Screening: : Patient negative for fever greater than or equal to 101.5 degrees Fahrenheit, and additional compatible Ebola Virus Disease symptoms. Screenin:30 Abuse screen: Denies threats or abuse. Denies injuries from another. Nutritional sg screening: No deficits noted. Tuberculosis screening: No symptoms or risk factors identified. Never had TB. Fall Risk None identified. Assessment: 11:00 Reassessment: bp 96/60, provider notified. Received order for NS 500 ml bolus. rb1 11:30 Reassessment: Pt. is lethargic, responds to painful stimuli. Provider notified. rb1 11:55 Reassessment: Pt. moved to Bed #4, report given to SAMAN Alonso. rb1 12:15 Reassessment: Patient appears in no apparent distress at this time. report received sg from Ayo DAVISON. Respiratory: Airway is patent Respiratory effort is even, unlabored, Respiratory pattern is regular, symmetrical. GI: Abdomen is round non-distended, Bowel sounds present X 4 quads. Derm: Skin is intact, is healthy with good turgor, Skin is dry, Skin is pale, Skin temperature is cool. Derm: Decubitus located on sacrum approximately 1.5 cm to 2.5 cm is stage II skin peeling, with redness, and blanchable surrounding tissue is draining none noted. Musculoskeletal: Circulation, motion, and sensation intact. Range of motion: intact in all extremities. 12:36 Reassessment: Patient appears in no apparent distress at this time. Patient and/or sg family updated on plan of care and expected duration. Pain level reassessed. pt is drowsy at this time, but will awaken to verbal and tactile stimuli, pt complaining of low back and buttocks pain at this time, Mahamed GROUND WOOD SUPERVISOR notified, Mahamed IGLESIASP at bedside evaluating pt, pt repositioned to left side lying and supported with pillows and blankets Patient states symptoms have not improved. 13:30 Reassessment: Patient appears in no apparent distress at this time. Patient and/or sg family updated on plan of care and expected duration. Pain level reassessed. pt family at bedside at this time, pt remains in bed, low locked position, srx2 with call gamez in reach, pt repositioned to back, pt awakens to verbal stimuli at this time, continue to await a bed assignment, will continue to monitor. 14:30 Reassessment: Patient appears in no apparent distress at this time. Patient and/or sg family updated on plan of care and expected duration. Pain level reassessed. 15:15 Reassessment: Patient appears in no apparent distress at this time. Patient and/or sg family updated on plan of care and expected duration. Pain level reassessed. Neuro: Level of Consciousness is awake, obeys commands, confused, Oriented to person, situation, Speech is normal, Facial symmetry appears normal. Cardiovascular: Patient's skin is warm and dry. Derm: Skin is pale, Skin temperature is cool. 16:10 Reassessment: Patient appears in no apparent distress at this time. Patient and/or sg family updated on plan of care and expected duration. Pain level reassessed. 16:19 Reassessment: Patient appears in no apparent distress at this time. Patient and/or sg family updated on plan of care and expected duration. Pain level reassessed. pt repositioned to right side lying, pt is awake and speaking with daughter Beth at the bedside, awaiting a bed assignment at this time, will continue to monitor. Vital Signs: 10:52 BP 88 / 48; Pulse 65; Resp 17; Temp 97.9(O); Pulse Ox 97% on R/A; Pain 8/10; rb1 11:00 BP 96 / 60; Pulse 58; Resp 19; Pulse Ox 95% on 2 lpm NC; rb1 11:30 BP 124 / 57; Pulse 62; Resp 20; Pulse Ox 95% on 2 lpm NC; rb1 11:45 BP 127 / 59; Pulse 64; Resp 21; Pulse Ox 99% ; rb1 12:35 BP 107 / 44; Pulse 67; Resp 17; Temp 97.7; Pulse Ox 98% on 2 lpm NC; sg 13:00 BP 114 / 46; Pulse 70; Resp 17; Pulse Ox 99% ; sg 13:34 BP 114 / 49; Pulse 70; Resp 22; Pulse Ox 99% on 2 lpm NC; ph 13:49 BP 121 / 50; Pulse 68; Resp 18; Pulse Ox 97% on 2 lpm NC; Pain 0/10; sg 14:20 BP 139 / 57; Pulse 73; Resp 17; Pulse Ox 98% on 4 lpm NC; sg 15:00 BP 135 / 63; Pulse 68; Resp 14; Pulse Ox 96% on 2 lpm NC; sg 16:53 BP 146 / 60; Pulse 62; Resp 17; Pulse Ox 98% on 4 lpm NC; sg ED Course: 10:51 Patient arrived in ED. em1 10:59 Sindhu Banda FNP-C is PHCP. snw 10:59 Vicente Pollock MD is Attending Physician. snw 11:00 Inserted saline lock: 22 gauge in left antecubital area, using aseptic technique. Blood rb1 collected. 11:15 Lillian Sheth, RN is Primary Nurse. rb1 11:50 Triage completed. rb1 11:53 EKG done, by compounding technician. reviewed by Sindhu ROLON. at1 12:[address] via stretcher. sj 12:12 CT Head C Spine In Process Unspecified. EDMS 12:35 Primary Nurse role handed off by Lillian Sheth, RN sg 12:35 Gavin Michael, RN is Primary Nurse. sg 12:35 Patient has correct armband on for positive identification. Placed in gown. Bed in low sg position. Call light in reach. Side rails up X2. air sampling and monitoring on. Pulse ox on. NIBP on. Warm blanket given. Head of bed lowered. 12:57 Angela Jackson MD is Hospitalizing Provider. snw 13:34 Arm band placed on. ph 18:15 No provider procedures requiring assistance completed. Patient admitted, IV remains in sg place. intact, No redness/swelling at site. Administered Medications: 11:00 Drug: NS 0.9% 500 ml Volume: 500 ml; Route: IV; Rate: 1 bolus; Site: left antecubital; rb1 11:15 Drug: D5-NS 1000 ml Route: IV; Rate: 125 ml/hr; Site: left antecubital; rb1 11:37 Drug: NARcan 0.4 mg Route: IVP; Site: left antecubital; rb1 11:50 Follow up: Response: No adverse reaction; Blood pressure is elevated rb1 Point of Care Testing: Blood Glucose: 11:03 Blood Glucose: 85 mg/dL; rb1 11:29 Blood Glucose: 93 mg/dL; rb1 Ranges: Outcome: 12:57 Decision to Hospitalize by Provider. snw 18:15 Admitted to ICU accompanied by nurse, accompanied by tech, via stretcher, room 6, with sg oxygen, on monitor, with chart, Report called to bedside report given to Deepti DAVISON 18:15 Condition: stable 18:15 Instructed on the need for admit, safety practices, Demonstrated understanding of instructions. 18:19 Patient left the ED. sg Signatures: Dispatcher [employer] EDMS Gavin Michael, RN RN sg Sindhu Banda, GROUND WOOD SUPERVISOR-C GROUND WOOD SUPERVISOR-Csnw Lg, Delaney Christie, Gennaro em1 Love Harding, ferry hand EKG Tat1 Paty Melendrez, RN RN Lillian Sheth RN RN rb1 Corrections: (The following items were deleted from the chart) 12:15 10:52 Presenting complaint: EMS states: Pt. is from [facility], called EMS for rb1 hypoglycemia BS 58, facility administered glucose gel, BS went to 495, Recheck BS was 57. BP 157/88, P 71, 78% RA, put on 3 L 93-95%. Has dialysis on MWF. Pt. is at normal baseline. History of CVA with memory loss. BGL 77, SR 58-60's. rb1
--- NOTE | 2018-06-14 12:58 | EDPHYS ---
Physician Documentation [facility] Name: Apoorva Christie Age: 68 yrs Sex: Female : 1950 Arrival Date: 06/14/2018 Time: 10:51 Bed 4 Private MD: ED Physician Vicente Pollock HPI: 06/14 12:07 This 68 yrs old Female presents to ER via EMS with complaints of Hypoglycemia. snw 12:07 The patient presents with confusion, decreased mental status. Onset: The snw symptoms/episode began/occurred suddenly, today. Possible causes: low blood sugar, the patient takes and oral hypoglycemic. Associated signs and symptoms: Pertinent positives: confusion, weakness. Current symptoms: In the emergency department the patient's symptoms are unchanged from the initial presentation. Patient's baseline: Neuro: alert but confused. The patient has experienced similar episodes in the past. It is unknown whether or not the patient has recently seen a physician. Historical: - Allergies: 10:52 codeine sulfate; rb1 - PMHx: 10:52 brain blockage; Cirrhosis; CVA; Diabetes - IDDM; Hypertension; meningitis; progressive rb1 tremors; - PSHx: 10:52 Cholecystectomy; Knee surgery; ; Hysterectomy; rb1 - Immunization history:: Adult Immunizations up to date. - Social history:: Smoking status: Patient/guardian denies using tobacco. - Ebola Screening: : Patient negative for fever greater than or equal to 101.5 degrees Fahrenheit, and additional compatible Ebola Virus Disease symptoms. ROS: 11:45 Eyes: Negative for injury, pain, redness, and discharge, ENT: Negative for injury, snw pain, and discharge, Neck: Negative for injury, pain, and swelling, Cardiovascular: Negative for chest pain, palpitations, and edema, Respiratory: Negative for shortness of breath, cough, wheezing, and pleuritic chest pain, Abdomen/GI: Negative for abdominal pain, nausea, vomiting, diarrhea, and constipation, Back: Negative for injury and pain, : Negative for injury, bleeding, discharge, and swelling, MS/Extremity: Negative for injury and deformity, Skin: Negative for injury, rash, and discoloration. 11:45 Constitutional: Positive for fatigue, malaise. 11:45 Neuro: Positive for altered mental status, hypoglycemia in the 50s. Exam: 11:38 Head/Face: Normocephalic, atraumatic. Eyes: Pupils equal round and reactive to light, snw extra-ocular motions intact. Lids and lashes normal. Conjunctiva and sclera are non-icteric and not injected. Cornea within normal limits. Periorbital areas with no swelling, redness, or edema. ENT: Nares patent. No nasal discharge, no septal abnormalities noted. Tympanic membranes are normal and external auditory canals are clear. Oropharynx with no redness, swelling, or masses, exudates, or evidence of obstruction, uvula midline. Mucous membranes moist. Neck: Trachea midline, no thyromegaly or masses palpated, and no cervical lymphadenopathy. Supple, full range of motion without nuchal rigidity, or vertebral point tenderness. No Meningismus. Chest/axilla: Normal chest wall appearance and motion. Nontender with no deformity. No lesions are appreciated. Cardiovascular: Regular rate and rhythm with a normal S1 and S2. No gallops, murmurs, or rubs. Normal PMI, no JVD. No pulse deficits. 11:38 Abdomen/GI: Soft, non-tender, with normal bowel sounds. No distension or tympany. No guarding or rebound. No evidence of tenderness throughout. Back: No spinal tenderness. No costovertebral tenderness. Full range of motion. Skin: Warm, dry with normal turgor. Normal color with no rashes, no lesions, and no evidence of cellulitis. MS/ Extremity: Pulses equal, no cyanosis. Neurovascular intact. Full, normal range of motion. 11:38 Constitutional: The patient appears pt arrived to ED screaming with buttock pain, repeating questions, eyes closed but talking, on my arrival for assessment pt was unresponsive until painful stimuli, Spo2 at 93% room air. Fsbg 96mg/dl, BP 60s/40s, O2 at 3L placed, Narcan 0.4mg IV given, repeat SBP 120s, Spo2 98%, CT called for CT brain 11:38 Respiratory: the patient does not display signs of respiratory distress, Respirations: normal, Breath sounds: + upper airway congestion. 11:38 Neuro: Orientation: unable to test, Mentation: responsive to pain, Memory: unable to test, Sensation: pt states, "your hands are cold" post sternal rub, seizure activity, is not displayed by the patient, Abnormal movements: there are no abnormal movements. 12:24 Skin: stage II sacral breakdown. snw Vital Signs: 10:52 BP 88 / 48; Pulse 65; Resp 17; Temp 97.9(O); Pulse Ox 97% on R/A; Pain 8/10; rb1 11:00 BP 96 / 60; Pulse 58; Resp 19; Pulse Ox 95% on 2 lpm NC; rb1 11:30 BP 124 / 57; Pulse 62; Resp 20; Pulse Ox 95% on 2 lpm NC; rb1 11:45 BP 127 / 59; Pulse 64; Resp 21; Pulse Ox 99% ; rb1 12:35 BP 107 / 44; Pulse 67; Resp 17; Temp 97.7; Pulse Ox 98% on 2 lpm NC; sg 13:00 BP 114 / 46; Pulse 70; Resp 17; Pulse Ox 99% ; sg 13:34 BP 114 / 49; Pulse 70; Resp 22; Pulse Ox 99% on 2 lpm NC; ph 13:49 BP 121 / 50; Pulse 68; Resp 18; Pulse Ox 97% on 2 lpm NC; Pain 0/10; sg 14:20 BP 139 / 57; Pulse 73; Resp 17; Pulse Ox 98% on 4 lpm NC; sg 15:00 BP 135 / 63; Pulse 68; Resp 14; Pulse Ox 96% on 2 lpm NC; sg 16:53 BP 146 / 60; Pulse 62; Resp 17; Pulse Ox 98% on 4 lpm NC; sg MDM: 10:59 Patient medically screened. snw 12:55 Data reviewed: vital signs, nurses notes. Data interpreted: Pulse oximetry: on room air snw is 90 %. Interpretation: hypoxia. Plan: O2 by NC applied. Spo2 on 3 L up to 98%. Physician consultation: Angela Jackson MD was called at 12:56, was contacted at 12:56, regarding admission. 06/14 11:22 Order name: Basic Metabolic Panel; Complete Time: 12:08 snw 06/14 11:22 Order name: CBC with Diff; Complete Time: 11:52 snw 06/14 11:22 Order name: Creatinine for Radiology; Complete Time: 12:09 snw 06/14 11:22 Order name: Hepatic Function; Complete Time: 12:08 snw 06/14 11:22 Order name: Lipase; Complete Time: 12:08 snw 06/14 11:22 Order name: Flu; Complete Time: 12:11 snw 06/14 11:22 Order name: Urine Microscopic Only snw 06/14 11:54 Order name: Valproic Acid (Depakene) Level; Complete Time: 12:08 EDMS 06/14 12:06 Order name: AMMONIA; Complete Time: 12:59 snw 06/14 12:09 Order name: TS; Complete Time: 13:30 snw 06/14 12:09 Order name: TSH; Complete Time: 13:13 snw 06/14 12:10 Order name: Blood Culture Adult (2) snw 06/14 15:22 Order name: ABO/RH no charge; Complete Time: 15:30 EDMS 06/14 11:21 Order name: FSBS; Complete Time: 12:13 snw 06/14 11:21 Order name: CT Head C Spine; Complete Time: 12:45 snw 06/14 11:22 Order name: IV Saline Lock; Complete Time: 12:12 snw 06/14 11:22 Order name: Labs collected and sent; Complete Time: 12:12 snw 06/14 11:37 Order name: EKG; Complete Time: 11:37 snw 06/14 11:37 Order name: EKG - Nurse/Tech; Complete Time: 12:11 snw 06/14 17:21 Order name: Glucose, Ancillary Testing; Complete Time: 17:22 EDMS 06/14 17:31 Order name: Misc. Order: Decrease IVF to 70ml/hr as FSBS has stabilized to 171 mg/dl; snw Complete Time: 17:41 Administered Medications: 11:00 Drug: NS 0.9% 500 ml Volume: 500 ml; Route: IV; Rate: 1 bolus; Site: left antecubital; rb1 11:15 Drug: D5-NS 1000 ml Route: IV; Rate: 125 ml/hr; Site: left antecubital; rb1 11:37 Drug: NARcan 0.4 mg Route: IVP; Site: left antecubital; rb1 11:50 Follow up: Response: No adverse reaction; Blood pressure is elevated rb1 Point of Care Testing: Blood Glucose: 11:03 Blood Glucose: 85 mg/dL; rb1 11:29 Blood Glucose: 93 mg/dL; rb1 Ranges: Critical Glucose Levels:Adult <50 mg/dl or >400 mg/dl <40 mg/dl or >180 mg/dl Disposition: 06/15 06:45 Co-signature as Attending Physician, Vicente Pollock MD I agree with the assessment and kdr plan of care. Disposition: 06/14/18 12:57 Hospitalization ordered by Angela Jackson for Inpatient Admission. Preliminary diagnosis are Hypoglycemia, unspecified, Influenza due to identified novel influenza A virus, Altered mental status, unspecified. - Bed requested for Intensive Care Unit. - Status is Inpatient Admission. sg - Condition is Fair. - Problem is an acute exacerbation. - Symptoms are unchanged. UTI on Admission? No Signatures: Dispatcher [employer] EDAL Maribel Powell RN RN dw Gavin Michael RN SAMAN sg Vicente Pollock MD MD [facility] Sindhu Banda, HOBBING MACHINE OPERATOR-C HOBBING MACHINE OPERATOR-Csnw Lillian Sheth, RN RN rb1 Corrections: (The following items were deleted from the chart) 06/14 11:54 11:37 VALPROIC ACID (DEPAKOTE)+C.LAB.BRZ ordered. [facility] EDAL 17:24 12:57 Hospitalization Ordered by Angela Jackson MD for Inpatient Admission. Preliminary dw diagnosis is Hypoglycemia, unspecified; Influenza due to identified novel influenza A virus; Altered mental status, unspecified. Bed requested for Intensive Care Unit. Status is Inpatient Admission. Condition is Fair. Problem is an acute exacerbation. Symptoms are unchanged. UTI on Admission? No. snw 18:19 17:24 06/14/2018 12:57 Hospitalization Ordered by Angela Jackson MD for Inpatient sg Admission. Preliminary diagnosis is Hypoglycemia, unspecified; Influenza due to identified novel influenza A virus; Altered mental status, unspecified. Bed requested for Intensive Care Unit. Status is Inpatient Admission. Condition is Fair. Problem is an acute exacerbation. Symptoms are unchanged. UTI on Admission? No. dw
[2018-06-14] MEDS ORDERED: LIDOCAINE VISCOUS 2% SOLN 15 ML UDC ONE (17:24)
[2018-06-14] MEDS: OSELTAMIVIR 75 MG CAP PO SCH (18:00)
--- NOTE | 2018-06-14 19:01 | P.HP ---
Certification for Inpatient Patient admitted to: Inpatient With expected LOS: >2 Midnights Practitioner: I am a practitioner with admitting privileges, knowledge of patient current condition, hospital course, and medical plan of care. Services: Services provided to patient in accordance with Admission requirements found in Title 42 Section 412.3 of the Code of Federal Regulations Patient History Date of Service: 06/14/18 Reason for admission: Decreased responsiveness History of Present Illness: This is a 68-year-old female with history of CVA in the past, complicated with seizures, hypertension, cirrhosis, insulin-dependent diabetes admitted for decreased level of consciousness. Patient with a recent ankle surgery in [place] complicated by infected ankle, treated. She underwent rehab and was then transferred to [address] [place] [address]. The halfway, but at the halfway this time she was found with glycemic in the 40s to 50s. She was given glucose gel, which are blood sugars in the 400. She was monitored and on recheck again had dropped down to the 50s. Therefore EMS was called. When EMS checked, blood stick blood sugar was 92 and she was hemodynamically stable. She was then brought to the emergency room. In the ER, she was unresponsive initially with a blood sugar of 92. She was started on gentle hydration with IV fluids of D5 as her blood pressure systolic was in the 70s. She was also given Narcan as she does take lorazepam in the halfway. In the ER, she was also found to have influenza A positive test. She also has a stage II decubitus ulcer. At the time of my exam, patient very sleepy, responsive to pain. Not really wanting to answer any questions as she is very sleepy. Does try to open her eyes when told. Allergies codeine Allergy (Verified 08/31/17 22:20) Shortness of breath Home Medications: Amlodipine [Norvasc*] 10 mg PO DAILY 01/01/18 Aspirin 81 mg PO DAILY 01/01/18 Atorvastatin Calcium 20 mg PO DAILY 01/01/18 Carvedilol 6.25 mg PO BID 01/01/18 Clopidogrel Bisulfate [Plavix*] 75 mg PO DAILY 01/01/18 Donepezil [Aricept*] 5 mg PO DAILY 01/01/18 Insulin Glargine Human [Lantus*] 100 unit SQ DAILY 01/01/18 Insulin NPH Human [Novolin N (Humulin N)*] 35 unit SQ AC 01/01/18 Lisinopril 40 mg PO DAILY 01/01/18 Metformin HCl 1,000 mg PO BID 01/01/18 - Past Medical/Surgical History Has patient received pneumonia vaccine in the past: Yes Diabetic: Yes -: HTN -: DM -: Stroke (JUNE 2017) -: Seizures -: Progressive Tremors -: Sweets Syndrome 2001 -: Stroke (2005) -: cholecystectomy -: Knee surgery -: Hysterectomy -: Bunionectomy Right Side -: Carptal Tunnel Surgery Right Side -: left ankle sx - Family History Mother -: Cancer Father Notes: Heart Attack Sister -: Diabetes Brothers -: Diabetes Notes: Heart Attack - Social History Smoking Status: Former smoker Alcohol use: No CD- Drugs: No Caffeine use: Yes Place of Residence: [facility] Review of Systems 10-point ROS is otherwise unremarkable Physical Examination - Vital Signs Temperature: 97.4 F Blood Pressure: 137/60 Pulse: 72 - Physical Exam General: In no apparent distress, Oriented x2, Other (Sleepy) HEENT: Atraumatic, PERRLA, Mucous membr. moist/pink, EOMI, Sclerae nonicteric Neck: Supple, 2+ carotid pulse no bruit, No LAD, Without JVD or thyroid abnormality Respiratory: Clear to auscultation bilaterally, Normal air movement Cardiovascular: Regular rate/rhythm, Normal S1 S2 Gastrointestinal: Normal bowel sounds, No tenderness Musculoskeletal: Erythema, Tenderness Integumentary: Skin breakdown, Skin lesion (Right ankle), Other (Stage II decubitus ulcer) Neurological: Normal gait, Normal speech, Normal strength at 5/5 x4 extr, Normal tone, Normal affect - Studies Laboratory Data (last 24 hrs) 06/14/18 11:00: Creatinine 2.80 H 06/14/18 11:00: WBC 6.7, Hgb 8.4 L, Hct 25.2 L, Plt Count 204 06/14/18 11:00: Sodium 136, Potassium 4.1, BUN 50 H, Creatinine 2.79 H, Glucose 79, Total Bilirubin 0.4, AST 52 H, ALT 60, Alkaline Phosphatase 211 H, Lipase 106 Microbiology Data (last 24 hrs): 06/14/18 11:38 Nasopharnyx Influenza Type A Antigen Screen - Final 06/14/18 11:38 Nasopharnyx Influenza Type B Antigen Screen - Final Assessment and Plan - Problems (Diagnosis) (1) Altered mental status Onset Date: 08/07/17 Current Visit: No Status: Acute (2) Multiple episodes of hypoglycemia Current Visit: Yes Status: Acute (3) Postoperative infection Current Visit: Yes Status: Acute (4) Stage II pressure ulcer of buttock Current Visit: Yes Status: Acute (5) Influenza A Current Visit: Yes Status: Acute (6) Displaced bimalleolar fracture of left ankle Onset Date: 01/02/18 Current Visit: No Status: Resolved Qualifiers: Encounter type: sequela Fracture type: closed Qualified Code(s): S82.842S - Displaced bimalleolar fracture of left lower leg, sequela (7) Essential hypertension Onset Date: 01/02/18 Current Visit: No Status: Acute (8) History of stroke Onset Date: 08/07/17 Current Visit: No Status: Chronic (9) Type 2 diabetes mellitus without complications Onset Date: 08/03/17 Current Visit: No Status: Chronic Qualifiers: Diabetes mellitus terminal clerk insulin use: with terminal clerk use Qualified Code( s): E11.9 - Type 2 diabetes mellitus without complications; 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 Will hold antibiotics at this time, pending further workup. Lactic acid and pro calcitonin ordered. Urine culture ordered (patient still makes urine) Multiple episodes of hypoglycemia Could be secondary to the infection. Continue glucose monitoring Old diabetes medications at this time. Ankles fracture status post surgery complicated by ankle infection with current discharge Wound care consult Wound culture Foot x-ray ordered, pending to evaluate for underlying osteo Stage II decubitus ulcer Consult wound care Influenza A positive Tamiflu Supportive care Hold IV fluids at this time (dialysis patient) Essential hypertension Will restart home medications History of CVA Stable, will restart home medications Type 2 diabetes mellitus, with insulin use Hold diabetes medications at this time secondary to hypoglycemic episodes. ESRD, on dialysis Monday Nephrology consult DVT prophylaxis: Lovenox GI prophylaxis: None Diet: Renal Disposition: Admit to ICU, monitor. - Advance Directives Does patient have a Living Will: No Does patient have a Durable POA for Healthcare: No
[2018-06-14] MEDS ORDERED: GLUCAGON 1 MG/VIAL IM PRN (19:20)
[2018-06-14] MEDS ORDERED: D50W 25 GM/50 ML SYRINGE IV PRN (19:20)
--- NOTE | 2018-06-14 19:56 | RAD REPORT ---
EXAM DESCRIPTION: RAD - Ankle Left 2 View - 06/14/2018 7:34 pm CLINICAL HISTORY: Left ankle pain FINDINGS: Subacute trimalleolar fracture Orthopedic hardware has been removed from the fibula. The bones are osteoporotic. Lateral soft tissue ulceration suspected. Lucency involving the lateral malleolus could represent focal osteoporosis or osteomyelitis. Further evaluation with MRI would be helpful
[2018-06-14 20:44] LABS: Urine Appearance TURBID; Urine Bilirubin NEGATIVE (NEG); Urine Blood NEGATIVE (NEG); Urine Color YELLOW; Urine Glucose NEGATIVE (NEG); Urine Protein 2+ (NEG); Urine Specific Gravity 1.015 (1.005-1.030); Urine Urobilinogen 0.2 mg/dL (0.2-1.0); Urine pH 5.5 (5.0-7.0)
[2018-06-14] MEDS: INSULIN -REGULAR HUMAN 50 UNIT/0.5 ML ML SQ SCH (21:00)
[2018-06-14 21:24] LABS: Urine Bacteria >50 /HPF (<20); Urine Culture Reflex Order REFLEXED; Urine RBC <5 /HPF (NONE SEEN); Urine Yeast FEW (NONE SEEN)
[2018-06-15 06:14] LABS: Absolute Lymphocytes (CBC) 1.3 K/uL (0.7-4.9); Absolute Monocytes 0.6 K/uL (0.1-1.3); Absolute Neutrophil 5.9 K/uL (1.8-8.0); Basophils % 0.8 % (0-1.3); Eosinophils % 0.3 % (0-4.4); Hematocrit 24.9 % (36.0-45.0); Lymphocytes % 16.4 % (15.3-44.8); MPV 10.5 fL (7.6-11.3); Monocytes % 7.6 % (3.3-12.3); RBC Red Blood Cell Count 2.74 M/uL (3.86-4.86)
[2018-06-15 06:21] LABS: Albumin 2.4 g/dL (3.4-5.0); Bilirubin Total 0.3 mg/dL (0.2-1.0); Potassium 4.1 mmol/L (3.5-5.1)
[2018-06-15] MEDS: INSULIN -REGULAR HUMAN 50 UNIT/0.5 ML ML SQ SCH ×4 (07:13→20:56)
[2018-06-15] MEDS: OSELTAMIVIR 75 MG CAP PO SCH ×2 (09:08→20:55)
[2018-06-15] MEDS: CEFTRIAXONE/SWI 1gm 1 GM/10 ML SYR IV SCH (12:19)
[2018-06-15] MEDS: NIFEDIPINE XL 30 MG TABLET PO SCH (13:14)
[2018-06-15] MEDS: HYDRALAZINE HCL 25 MG TABLET PO SCH ×2 (13:15→20:55)
[2018-06-15] MEDS ORDERED: LORazepam 2 MG/ML VIAL IV ONE (14:36)
--- NOTE | 2018-06-15 17:04 | P.PN ---
Subjective Date of Service: 06/15/18 Chief Complaint: Decreased responsiveness Subjective: Improving Patient seen and examined at bedside. No family at bedside. Chart reviewed and case discussed with nursing staff. Patient a little more awake and alert this morning. Remained hemodynamically stable overnight. No acute events noted overnight. Review of Systems 10-point ROS is otherwise unremarkable Physical Examination - Vital Signs Temperature: 100.3 F Blood Pressure: 184/72 Pulse: 75 Respirations: 23 Pulse Ox (%): 93 - Physical Exam General: Alert, In no apparent distress, Oriented x2, Other (A little hold appropriate conversation, seems to fall asleep, seems very tired.) HEENT: Atraumatic, PERRLA, EOMI Neck: Supple, JVD not distended Respiratory: Clear to auscultation bilaterally, Normal air movement Cardiovascular: Regular rate/rhythm, Normal S1 S2 Gastrointestinal: Normal bowel sounds, No tenderness Musculoskeletal: No tenderness Integumentary: Rash(es), Skin breakdown, Skin lesion (On medial and lateral malleoli area of the left foot), Pressure ulcer (Decubitus, stage II) Neurological: Normal speech, Normal tone, Normal affect - Studies Microbiology Data (last 24 hrs): 06/14/18 11:38 Nasopharnyx Influenza Type A Antigen Screen - Final 06/14/18 11:38 Nasopharnyx Influenza Type B Antigen Screen - Final Assessment And Plan - Current Problems (Diagnosis) (1) Altered mental status Onset Date: 08/07/17 Current Visit: No Status: Acute (2) Multiple episodes of hypoglycemia Onset Date: 06/15/18 Current Visit: Yes Status: Acute (3) Postoperative infection Onset Date: 06/15/18 Current Visit: Yes Status: Acute (4) Stage II pressure ulcer of buttock Onset Date: 06/15/18 Current Visit: Yes Status: Acute (5) Influenza A Onset Date: 06/15/18 Current Visit: Yes Status: Acute (6) Essential hypertension Onset Date: 01/02/18 Current Visit: No Status: Acute (7) History of stroke Onset Date: 08/07/17 Current Visit: No Status: Chronic (8) Type 2 diabetes mellitus without complications Onset Date: 08/03/17 Current Visit: No Status: Chronic Qualifiers: Diabetes mellitus terminal computer operator insulin use: with terminal computer operator use Qualified Code( s): E11.9 - Type 2 diabetes mellitus without complications; 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 Start antibiotics with Rocephin, day 1. Vancomycin with dialysis Left Ankle fracture status post surgery complicated by ankle infection with current discharge Wound care consult, pending Wound culture pending Foot x-ray suspicious for osteoporosis versus osteomyelitis. MRI of the ankle ordered, pending Start make a mycin with dialysis May need to get surgery involved for possible debridement Stage II decubitus ulcer Consult wound care, pending Influenza A positive Continue Tamiflu Supportive care Hold IV fluids at this time (dialysis patient) Essential hypertension Will restart home medications History of CVA Stable, will restart home medications Type 2 diabetes mellitus, with insulin use Hold diabetes medications at this time secondary to hypoglycemic episodes. We will restart as tolerated. ESRD, on dialysis Monday Nephrology consult, pending. Urinary tract infection Start Rocephin, day 1 Urine cultures pending Multiple episodes of hypoglycemia Resolved Could be secondary to the infection. Continue glucose monitoring Old diabetes medications at this time. DVT prophylaxis: Lovenox GI prophylaxis: None Diet: Renal Disposition: Continue to monitor in ICU Critical Care: Yes
--- NOTE | 2018-06-15 17:17 | RAD REPORT ---
EXAM DESCRIPTION: MRI - Ankle Left Wo Cont - 06/15/2018 3:52 pm CLINICAL HISTORY: Ankle pain and swelling TECHNIQUE: Axial, sagittal, and coronal magnetic images of the left ankle obtained FINDINGS: Subacute trimalleolar fracture is present. Infarcts are present within the talus and distal tibia. Soft tissue ulceration is present laterally. Distal fibula demonstrates abnormal signal consistent wi th osteomyelitis. Abnormal signal is present throughout the talus IMPRESSION: Subacute trimalleolar fracture Infarcts talus and distal fibula Osteomyelitis distal fibula Abnormal signal throughout the talus may be secondary to acute infarcts, osteomyelitis or fracture.
--- NOTE | 2018-06-15 20:13 | P.CNS ---
Date of Consult: 06/15/18 Reason for Consult: ESRD to resume HD Chief Complaint: Decreased responsiveness History of Present Illness: Pt is unable to provide Hx, Hx obtained from chart A 68-year-old woman with history of ESRD on HD MWF from [facility] via Rt perm cath , CVA in the past, complicated with seizures, hypertension, cirrhosis , and DM pt was amditted for AMS in ER pt was hypoglycemic, pt recently had ankle surgery and was trated for infection porcal WNL, influenza +ve Allergies codeine Allergy (Verified 08/31/17 22:20) Shortness of breath Home Medications: Aspirin 81 mg PO DAILY 01/01/18 Atorvastatin Calcium 20 mg PO DAILY 01/01/18 Carvedilol 12.5 mg PO BID 01/01/18 Clopidogrel Bisulfate [Plavix*] 75 mg PO DAILY 01/01/18 Clonidine HCl [Catapres] 0.1 mg PO Q8HP 06/15/18 Divalproex Sodium [Depakote] 500 mg PO Q12HR 06/15/18 Ferrous Sulfate [Iron] 325 mg PO Q12HR 06/15/18 Hydralazine HCl [Apresoline] 50 mg PO Q8HR 06/15/18 Insulin Glargine,Hum.rec.anlog [Lantus Solostar] 35 unit SQ Q12HR 06/15/18 Insulin Lispro [Humalog Kwikpen U-100] 3 unit SQ AC 06/15/18 Lorazepam [Ativan] 1 mg PO Q8HP 06/15/18 Mag Hydroxide 8% [Milk Of Magnesia*] 30 ml PO Q24H 06/15/18 Nifedipine [Nifedipine ER] 30 mg PO DAILY 06/15/18 Nystatin Powder [Mycostatin (Powder)*] 1 pretty TOP DAILY 06/15/18 Polyethylene Glycol 3350 [Glycolax] 17 gm PO DAILY 06/15/18 Sennosides 17.2 mg PO DAILY 06/15/18 Terazosin HCl 4 mg PO BEDTIME 06/15/18 - Past Medical/Surgical History Diabetic: Yes -: HTN -: DM -: Stroke (JUNE 2017) -: Seizures -: Progressive Tremors -: Sweets Syndrome 2001 -: Stroke (2005) -: cholecystectomy -: Knee surgery -: Hysterectomy -: Bunionectomy Right Side -: Carptal Tunnel Surgery Right Side -: left ankle sx - Family History Mother Medical History: Cancer Father Notes: Heart Attack Sister Medical History: Diabetes Brothers Medical History: Diabetes Notes: Heart Attack - Social History Smoking Status: Unknown if ever smoked Alcohol use: No CD- Drugs: No Caffeine use: Yes Place of Residence: [facility] Physical Examination Temp Pulse Resp BP Pulse Ox 100.3 F 81 22 H 158/47 H 97 06/15/18 17:14 06/15/18 18:00 06/15/18 18:00 06/15/18 18:00 06/15/18 18:00 General: Alert, Confused HEENT: Atraumatic Neck: Supple, Without JVD or thyroid abnormality Respiratory: Clear to auscultation bilaterally, Normal air movement Cardiovascular: No edema, Regular rate/rhythm, Normal S1 S2, No gallops, No rubs , No murmurs Gastrointestinal: Normal bowel sounds, Soft and benign - Problems (1) Influenza A Onset Date: 06/15/18 Current Visit: Yes Status: Acute (2) Stage II pressure ulcer of buttock Onset Date: 06/15/18 Current Visit: Yes Status: Acute (3) ESRD (end stage renal disease) on dialysis Onset Date: 06/15/18 Current Visit: Yes Status: Chronic Conclusions/Impression: 68-year-old female with history of CVA in the past, complicated with seizures, hypertension, cirrhosis, insulin-dependent diabetes admitted for decreased level of consciousness. Patient with a recent ankle surgery in [place] complicated by infected ankle, treated. She underwent rehab and was then transferred to [address] [place] [address]. The detention, but at the detention this time she was found with glycemic in the 40s to 50s. She was given glucose gel, which are blood sugars in the 400. She was monitored and on recheck again had dropped down to the 50s. Therefore EMS was called. When EMS checked, blood stick blood sugar was 92 and she was hemodynamically stable. She was then brought to the emergency room. In the ER, she was unresponsive initially with a blood sugar of 92. She was started on gentle hydration with IV fluids of D5 as her blood pressure systolic was in the 70s. She was also given Narcan as she does take lorazepam in the detention. In the ER, she was also found to have influenza A positive test. She also has a stage II decubitus ulcer. At the time of my exam, patient very sleepy, responsive to pain. Not really wanting to answer any questions as she is very sleepy. Does try to open her eyes when told. ESRD on HD MWF via Rt permcath will dialyse tomorrow then MWF renal dose meds Anemia will start on HEATHER anemia W/U MBD will check PTh and Phos Influenza started on tamiflu sacral wound cont wound care UTI f/u culture cont abx
[2018-06-15] MEDS: JUVEN PACKET PO SCH (20:55)
[2018-06-15] MEDS ORDERED: TEMAZEPAM 15 MG CAP PO STA (21:45)
[2018-06-16 05:50] LABS: Albumin 2.5 g/dL (3.4-5.0); Bilirubin Total 0.3 mg/dL (0.2-1.0); Magnesium 1.9 mg/dL (1.8-2.4); Phosphorus 5.5 mg/dL (2.5-4.9); Potassium 4.5 mmol/L (3.5-5.1); Protein, Total 7.7 g/dL (6.4-8.2)
[2018-06-16 06:36] LABS: Folic Acid, (Folate) 12.4 ng/mL (3.1-17.5)
[2018-06-16 07:10] LABS: Absolute Lymphocytes (CBC) 1.7 K/uL (0.7-4.9); Absolute Monocytes 0.6 K/uL (0.1-1.3); Absolute Neutrophil 3.7 K/uL (1.8-8.0); Basophils % 0.7 % (0-1.3); Eosinophils % 1.1 % (0-4.4); Hematocrit 23.3 % (36.0-45.0); MPV 10.4 fL (7.6-11.3); Monocytes % 9.6 % (3.3-12.3); RBC Red Blood Cell Count 2.57 M/uL (3.86-4.86)
[2018-06-16] MEDS: INSULIN -REGULAR HUMAN 50 UNIT/0.5 ML ML SQ SCH ×4 (07:30→20:22)
[2018-06-16] MEDS ORDERED: NA CHLORIDE 0.9% 1,000 ML ONE (08:52)
[2018-06-16] MEDS ORDERED: NIFEDIPINE XL 30 MG TABLET PO SCH (09:00)
[2018-06-16] MEDS: HYDRALAZINE HCL 25 MG TABLET PO SCH ×3 (09:00→20:20)
[2018-06-16] MEDS: OSELTAMIVIR 75 MG CAP PO SCH ×2 (09:04→20:21)
[2018-06-16] MEDS: JUVEN PACKET PO SCH ×2 (09:04→20:21)
[2018-06-16] MEDS ORDERED: NA CHLORIDE 0.9% 1,000 ML IV PRN (09:28)
[2018-06-16] MEDS ORDERED: NA CHLORIDE 0.9% 250 ML IV SCH (10:00)
[2018-06-16] MEDS ORDERED: EPOETIN ALFA 10,000 UNIT/ML VIAL SQ SCH (10:00)
[2018-06-16] MEDS: NIFEDIPINE XL 30 MG TABLET PO SCH (12:39)
[2018-06-16] MEDS: CEFTRIAXONE/SWI 1gm 1 GM/10 ML SYR IV SCH (12:39)
[2018-06-16] MEDS: VANCOMYCIN/NS 1 gm 1 GM/250 ML BAG IV SCH (12:40)
--- NOTE | 2018-06-16 15:29 | P.PN ---
Subjective Date of Service: 06/16/18 Chief Complaint: Decreased responsiveness Subjective: No new changes VS ok tolerated HD today Possible OM?, on Abx monitor vanco level S/p 1 PRBC Physical Examination - Vital Signs Temperature: 98.3 F Blood Pressure: 119/54 Pulse: 74 Respirations: 26 Pulse Ox (%): 95 - Physical Exam HEENT: Atraumatic Neck: Supple, Without JVD or thyroid abnormality Respiratory: Clear to auscultation bilaterally, Normal air movement Cardiovascular: No edema, Regular rate/rhythm, Normal S1 S2, No gallops, No rubs , No murmurs Gastrointestinal: Normal bowel sounds Assessment And Plan - Current Problems (Diagnosis) (1) Influenza A Onset Date: 06/15/18 Current Visit: Yes Status: Acute (2) Stage II pressure ulcer of buttock Onset Date: 06/15/18 Current Visit: Yes Status: Acute (3) ESRD (end stage renal disease) on dialysis Onset Date: 06/15/18 Current Visit: Yes Status: Chronic - Plan 68-year-old female with history of CVA in the past, complicated with seizures, hypertension, cirrhosis, insulin-dependent diabetes admitted for decreased level of consciousness. Patient with a recent ankle surgery in [place] complicated by infected ankle, treated. She underwent rehab and was then transferred to [address] [place] [address]. The prison, but at the prison this time she was found with glycemic in the 40s to 50s. She was given glucose gel, which are blood sugars in the 400. She was monitored and on recheck again had dropped down to the 50s. Therefore EMS was called. When EMS checked, blood stick blood sugar was 92 and she was hemodynamically stable. She was then brought to the emergency room. In the ER, she was unresponsive initially with a blood sugar of 92. She was started on gentle hydration with IV fluids of D5 as her blood pressure systolic was in the 70s. She was also given Narcan as she does take lorazepam in the prison. In the ER, she was also found to have influenza A positive test. She also has a stage II decubitus ulcer. At the time of my exam, patient very sleepy, responsive to pain. Not really wanting to answer any questions as she is very sleepy. Does try to open her eyes when told. ESRD on HD MWF via Rt permcath Tolerated HD today Next HD on Monday renal dose meds Anemia On HEATHER ferritn >1000 B12 and folate ok MBD will start on renvela Influenza started on tamiflu sacral wound cont wound care UTI f/u culture cont abx Possible OM cont Abx
[2018-06-16] MEDS: SEVELAMER CARBONATE 800 MG TABLET PO SCH (16:53)
--- NOTE | 2018-06-16 17:15 | RAD REPORT ---
EXAM DESCRIPTION: US - Lower Extremity Artery Uni Ltd - 06/16/2018 4:58 pm CLINICAL HISTORY: blood flow Left lower extremity claudication COMPARISON: No comparisons FINDINGS: Grayscale, color, power and spectral Doppler assessment of the left lower extremity arteri al system was performed. Left common femoral artery appears triphasic somewhat turbulent flow. Left superficial femoral artery mary's igloo vessel demonstrates blunted monophasic waveform. Left superfic ial femoral artery graft demonstrates blunted monophasic waveform. Left popliteal, posterior tibial and dorsalis pedis artery demonstrates blunted monophasic waveform. No occlusion is seen. IMPRESSION: The majority of the left lower extremity arterial system demonstrates blunted monophasic waveform. Left common femoral artery demonstrates triphasic waveform. This suggests the presence of a focal stenosis at the level of the distal left common femoral artery.
--- NOTE | 2018-06-16 22:02 | P.PN ---
Date of Service: 06/16/18 S: Patient more alert and interactive today. No pain on movement of her foot. O coal left foot is viable, still has wounds as described before A : This patient, who had a revascularization of her left leg, shows monophasic flow in her left foot. She has had procedures done to increased vasculature in this area. She is also diabetic. She has a viable foot at the moment. 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 She is currently on IV antibiotics.. P: Patient is currently stable, does not require any acute surgical intervention. Recommend case be discussed with the vascular surgeon and those were treating her infected wound on Monday. Seems to be improving from her influenza.
[2018-06-17] MEDS: INSULIN -REGULAR HUMAN 50 UNIT/0.5 ML ML SQ SCH ×4 (08:29→21:38)
[2018-06-17] MEDS: SEVELAMER CARBONATE 800 MG TABLET PO SCH ×3 (08:29→17:00)
[2018-06-17] MEDS: OSELTAMIVIR 75 MG CAP PO SCH ×2 (08:29→21:39)
[2018-06-17] MEDS: HYDRALAZINE HCL 25 MG TABLET PO SCH ×3 (08:29→21:39)
[2018-06-17] MEDS: NIFEDIPINE XL 30 MG TABLET PO SCH (08:29)
[2018-06-17] MEDS: JUVEN PACKET PO SCH ×2 (08:30→21:39)
[2018-06-17] MEDS: CEFTRIAXONE/SWI 1gm 1 GM/10 ML SYR IV SCH (08:30)
[2018-06-17 10:52] LABS: Absolute Lymphocytes (CBC) 1.2 K/uL (0.7-4.9); Absolute Monocytes 0.4 K/uL (0.1-1.3); Absolute Neutrophil 3.3 K/uL (1.8-8.0); Basophils % 0.3 % (0-1.3); Eosinophils % 5.6 % (0-4.4); Hematocrit 28.6 % (36.0-45.0); Lymphocytes % 23.2 % (15.3-44.8); MPV 10.9 fL (7.6-11.3); Monocytes % 8.2 % (3.3-12.3); RBC Red Blood Cell Count 3.14 M/uL (3.86-4.86)
[2018-06-17 11:01] LABS: Albumin 2.4 g/dL (3.4-5.0); Bilirubin Total 0.2 mg/dL (0.2-1.0); Magnesium 1.9 mg/dL (1.8-2.4); Phosphorus 4.4 mg/dL (2.5-4.9); Protein, Total 7.2 g/dL (6.4-8.2)
[2018-06-17] MEDS ORDERED: DIPHENHYDRAMINE 25 MG TAB/CAP PO PRN (11:58)
--- NOTE | 2018-06-17 14:51 | P.PN ---
Subjective Date of Service: 06/17/18 Chief Complaint: Decreased responsiveness Subjective: Improving ESRD pt , recent leg surgery, admitted for AMS and hypoglycemia VS ok HD op as MEF , will do TTsat while hospitalized monitor vanco level no need for surgical intervention at this time vascular f/u as an op Physical Examination - Vital Signs Temperature: 97.6 F Blood Pressure: 155/84 Pulse: 70 Respirations: 20 Pulse Ox (%): 98 - Physical Exam General: Alert, In no apparent distress HEENT: Atraumatic Neck: Supple, Without JVD or thyroid abnormality Respiratory: Clear to auscultation bilaterally, Normal air movement Cardiovascular: No edema, Regular rate/rhythm, Normal S1 S2 Assessment And Plan - Current Problems (Diagnosis) (1) Influenza A Onset Date: 06/15/18 Current Visit: Yes Status: Acute (2) Stage II pressure ulcer of buttock Onset Date: 06/15/18 Current Visit: Yes Status: Acute (3) ESRD (end stage renal disease) on dialysis Onset Date: 06/15/18 Current Visit: Yes Status: Chronic - Plan 68-year-old female with history of CVA in the past, complicated with seizures, hypertension, cirrhosis, insulin-dependent diabetes admitted for decreased level of consciousness. Patient with a recent ankle surgery in [place] [facility] complicated by infected ankle, treated. She underwent rehab and was then transferred to [address] [place] [address]. [place] [facility] [place] [facility] she was found with glycemic in the 40s to 50s. She was given glucose gel, which are blood sugars in the 400. She was monitored and on recheck again had dropped down to the 50s. Therefore EMS was called. When EMS checked, blood stick blood sugar was 92 and she was hemodynamically stable. She was then brought to the emergency room. In the ER, she was unresponsive initially with a blood sugar of 92. She was started on gentle hydration with IV fluids of D5 as her blood pressure systolic was in the 70s. She was also given Narcan as she does take loraz[place]am [place] [facility]. In the ER, she was also found to have influenza A positive test. She also has a stage II decubitus ulcer. At the time of my exam, patient very sleepy, responsive to pain. Not really wanting to answer any questions as she is very sleepy. Does try to open her eyes when told. ESRD on HD MWF via Rt permcath Tolerated HD today Next HD on Monday renal dose meds Anemia On HEATHER ferritn >1000 B12 and folate ok MBD on renvela Influenza On tamiflu sacral wound cont wound care UTI f/u culture cont abx
--- NOTE | 2018-06-17 15:15 | P.PN ---
Subjective Date of Service: 06/16/18 Chief Complaint: Decreased responsiveness Subjective: No new changes Patient seen and examined at bedside. Daughter at bedside. Chart reviewed and case discussed with nursing staff. Patient a little more awake and alert this morning. Remained hemodynamically stable overnight. No acute events noted overnight. Review of Systems 10-point ROS is otherwise unremarkable Physical Examination - Vital Signs Temperature: 97.6 F Blood Pressure: 155/84 Pulse: 70 Respirations: 20 Pulse Ox (%): 98 - Physical Exam General: Alert, In no apparent distress, Oriented x2 HEENT: Atraumatic, PERRLA, EOMI Neck: Supple, JVD not distended Respiratory: Clear to auscultation bilaterally, Normal air movement Cardiovascular: Regular rate/rhythm, Normal S1 S2 Gastrointestinal: Normal bowel sounds, No tenderness Musculoskeletal: No tenderness Integumentary: No rashes Neurological: Normal speech, Normal tone, Normal affect Lymphatics: No axilla or inguinal lymphadenopathy Assessment And Plan - Current Problems (Diagnosis) (1) Altered mental status Onset Date: 08/07/17 Current Visit: No Status: Acute (2) Multiple episodes of hypoglycemia Onset Date: 06/15/18 Current Visit: Yes Status: Acute (3) Postoperative infection Onset Date: 06/15/18 Current Visit: Yes Status: Acute (4) Stage II pressure ulcer of buttock Onset Date: 06/15/18 Current Visit: Yes Status: Acute (5) Influenza A Onset Date: 06/15/18 Current Visit: Yes Status: Acute (6) Essential hypertension Onset Date: 01/02/18 Current Visit: No Status: Acute (7) History of stroke Onset Date: 08/07/17 Current Visit: No Status: Chronic (8) Type 2 diabetes mellitus without complications Onset Date: 08/03/17 Current Visit: No Status: Chronic Qualifiers: Diabetes mellitus assisted insulin use: with intermediate card tender use Qualified Code( s): E11.9 - Type 2 diabetes mellitus without complications; Z79.4 - [facility] ( current) use of insulin (9) ESRD (end stage renal disease) on dialysis Onset Date: 06/15/18 Current Visit: Yes Status: Chronic (10) Urinary tract infection Current Visit: Yes Status: Acute Qualifiers: Urinary tract infection type: site unspecified Hematuria presence: without hematuria Qualified Code(s): N39.0 - Urinary tract infection, site not specified - Plan This is a 68-year-old female with: Altered mental status, toxic encephalopathy: Improving Could be secondary to episodes of hypoglycemia, infection (flu, ankle?, decubitus ulcer?, UTI) Continue to monitor. Start antibiotics with Rocephin, day 2. Vancomycin with dialysis Left Ankle fracture status post surgery complicated by ankle infection with current discharge Wound care consult, pending Wound culture pending Foot x-ray suspicious for osteoporosis versus osteomyelitis. MRI of the ankle ordered, possible infarct versus osteomyelitis Continue vancomycin with dialysis General surgery consulted. Recommendations appreciated. No surgical intervention recommended at this time. Stage II decubitus ulcer Consult wound care, pending Influenza A positive Continue Tamiflu Supportive care Hold IV fluids at this time (dialysis patient) Essential hypertension Will restart home medications History of CVA Stable, will restart home medications Type 2 diabetes mellitus, with insulin use Hold diabetes medications at this time secondary to hypoglycemic episodes. We will restart as tolerated. ESRD, on dialysis Monday Nephrology consult, pending. Urinary tract infection Start Rocephin, day 2 Urine cultures pending Multiple episodes of hypoglycemia Resolved Could be secondary to the infection. Continue glucose monitoring Old diabetes medications at this time. DVT prophylaxis: Lovenox GI prophylaxis: None Diet: Renal Disposition: Continue to monitor in ICU
--- NOTE | 2018-06-17 15:20 | P.PN ---
Subjective Date of Service: 06/17/18 Chief Complaint: Decreased responsiveness Subjective: Improving Patient seen and examined at bedside. No family at bedside. Chart reviewed and case discussed with nursing staff. Patient much more awake and alert this morning. In no acute distress. Remained hemodynamically stable overnight. No acute events noted overnight. Review of Systems 10-point ROS is otherwise unremarkable Physical Examination - Vital Signs Temperature: 97.6 F Blood Pressure: 155/84 Pulse: 70 Respirations: 20 Pulse Ox (%): 98 - Physical Exam General: Alert, In no apparent distress, Oriented x2 HEENT: Atraumatic, PERRLA, EOMI Neck: Supple, JVD not distended Respiratory: Clear to auscultation bilaterally, Normal air movement Cardiovascular: Regular rate/rhythm, Normal S1 S2 Gastrointestinal: Normal bowel sounds, No tenderness Musculoskeletal: No tenderness Integumentary: No rashes Neurological: Normal speech, Normal tone, Normal affect Lymphatics: No axilla or inguinal lymphadenopathy Assessment And Plan - Current Problems (Diagnosis) (1) Altered mental status Onset Date: 08/07/17 Current Visit: No Status: Acute (2) Multiple episodes of hypoglycemia Onset Date: 06/15/18 Current Visit: Yes Status: Acute (3) Postoperative infection Onset Date: 06/15/18 Current Visit: Yes Status: Acute (4) Stage II pressure ulcer of buttock Onset Date: 06/15/18 Current Visit: Yes Status: Acute (5) Influenza A Onset Date: 06/15/18 Current Visit: Yes Status: Acute (6) Essential hypertension Onset Date: 01/02/18 Current Visit: No Status: Acute (7) History of stroke Onset Date: 08/07/17 Current Visit: No Status: Chronic (8) Type 2 diabetes mellitus without complications Onset Date: 08/03/17 Current Visit: No Status: Chronic Qualifiers: Diabetes mellitus terminal operations manager insulin use: with group home use Qualified Code( s): E11.9 - Type 2 diabetes mellitus without complications; Z79.4 - intermission coordinator ( current) use of insulin (9) ESRD (end stage renal disease) on dialysis Onset Date: 06/15/18 Current Visit: Yes Status: Chronic (10) Urinary tract infection Current Visit: Yes Status: Acute Qualifiers: Urinary tract infection type: site unspecified Hematuria presence: without hematuria Qualified Code(s): N39.0 - Urinary tract infection, site not specified - Plan This is a 68-year-old female with: Altered mental status, toxic encephalopathy: Resolved. Seems to be back to baseline Could be secondary to episodes of hypoglycemia, infection (flu, ankle?, decubitus ulcer?, UTI) Continue to monitor. Continue antibiotics with Rocephin, day 3. Vancomycin with dialysis Left Ankle fracture status post surgery complicated by ankle infection with current discharge Wound care consult, pending Wound culture positive for MRSA, sensitive to vancomycin or tetracyclines. Foot x-ray suspicious for osteoporosis versus osteomyelitis. MRI of the ankle ordered, possible infarct versus osteomyelitis Continue vancomycin with dialysis General surgery consulted. Recommendations appreciated. No surgical intervention recommended at this time. Recent history: Patient with a ankle fracture, surgical fixation/ER. Complicated by vascular disease. Patient is status post fem pop bypass in January 2018, after which he has been 22 days in a group home facility. 2018 her hardware was removed from the ankle, complicated by infection in the ankle. She was admitted to [facility] for a debridement. After which she was discharged on Ltac ([facility] in [place] for 2 weeks) In March 2018, wound was again infected, she was admitted to the hospital in [facility]. This stay was complicated by bilateral pleural effusions requiring thoracocentesis x2. She was then transferred to and Ltac [facility]. Patient presented to hospital this admission from [facility]. Stage II decubitus ulcer Consult wound care, pending Influenza A positive Continue Tamiflu Supportive care Essential hypertension Will restart home medications History of CVA Stable, will restart home medications Type 2 diabetes mellitus, with insulin use Hold diabetes medications at this time secondary to hypoglycemic episodes. We will restart as tolerated. ESRD, on dialysis Monday Nephrology consult, recommendations appreciated Urinary tract infection Continue Rocephin, day 3 Urine cultures pending Multiple episodes of hypoglycemia Resolved Could be secondary to the infection. Continue glucose monitoring hold diabetes medications at this time. DVT prophylaxis: Lovenox GI prophylaxis: None Diet: Renal Disposition: He were done on November. Okay to wound to the floor. Plan is to treat flu/other infection. Once stable, will discharge home with outpatient follow up with vascular surgery.
--- NOTE | 2018-06-17 17:51 | RAD REPORT ---
EXAM DESCRIPTION: Ulicest Single View06/17/2018 5:33 pm CLINICAL HISTORY: Chest pain COMPARISON: December 2017 FINDINGS: Minimal interstitial pulmonary edema is suspected. The heart is borderline enlarged. A pneumothorax is not seen
[2018-06-18] MEDS: DIPHENHYDRAMINE 50 MG/ML VIAL IV PRN ×4 (00:12→16:54)
[2018-06-18] MEDS: JUVEN PACKET PO SCH ×2 (09:00→22:14)
[2018-06-18] MEDS: INSULIN -REGULAR HUMAN 50 UNIT/0.5 ML ML SQ SCH ×4 (09:52→22:15)
[2018-06-18] MEDS: CEFTRIAXONE/SWI 1gm 1 GM/10 ML SYR IV SCH (09:53)
[2018-06-18] MEDS: HYDRALAZINE HCL 25 MG TABLET PO SCH ×3 (09:53→22:14)
[2018-06-18] MEDS: OSELTAMIVIR 75 MG CAP PO SCH ×2 (09:53→22:15)
[2018-06-18] MEDS: SEVELAMER CARBONATE 800 MG TABLET PO SCH ×3 (09:54→16:54)
[2018-06-18] MEDS: NIFEDIPINE XL 30 MG TABLET PO SCH (09:55)
--- NOTE | 2018-06-18 11:53 | P.PN ---
Subjective Date of Service: 06/18/18 Chief Complaint: Decreased responsiveness Subjective: Improving Patient seen and examined at bedside. No family at bedside. Chart reviewed and case discussed with nursing staff. Patient much more awake and alert this morning. In no acute distress. Yesterday, patient left her Perma-Cath. Had some bleeding from the site, pressure held. Bleeding stopped. No acute events reported after that. Remained hemodynamically stable overnight. No acute events noted overnight. Review of Systems 10-point ROS is otherwise unremarkable Physical Examination - Vital Signs Temperature: 98.0 F Blood Pressure: 193/81 Pulse: 73 Respirations: 20 Pulse Ox (%): 98 - Physical Exam General: Alert, In no apparent distress, Oriented x2 HEENT: Atraumatic, PERRLA, EOMI Neck: Supple, JVD not distended Respiratory: Clear to auscultation bilaterally, Normal air movement Cardiovascular: Regular rate/rhythm, Normal S1 S2 Gastrointestinal: Normal bowel sounds, No tenderness Musculoskeletal: No tenderness Integumentary: No rashes Neurological: Normal speech, Normal tone, Normal affect Lymphatics: No axilla or inguinal lymphadenopathy Assessment And Plan - Current Problems (Diagnosis) (1) Altered mental status Onset Date: 08/07/17 Current Visit: No Status: Acute (2) Multiple episodes of hypoglycemia Onset Date: 06/15/18 Current Visit: Yes Status: Acute (3) Postoperative infection Onset Date: 06/15/18 Current Visit: Yes Status: Acute (4) Stage II pressure ulcer of buttock Onset Date: 06/15/18 Current Visit: Yes Status: Acute (5) Influenza A Onset Date: 06/15/18 Current Visit: Yes Status: Acute (6) Essential hypertension Onset Date: 01/02/18 Current Visit: No Status: Acute (7) History of stroke Onset Date: 08/07/17 Current Visit: No Status: Chronic (8) Type 2 diabetes mellitus without complications Onset Date: 08/03/17 Current Visit: No Status: Chronic Qualifiers: Diabetes mellitus detention insulin use: with detention use Qualified Code( s): E11.9 - Type 2 diabetes mellitus without complications; Z79.4 - [facility] ( current) use of insulin (9) ESRD (end stage renal disease) on dialysis Onset Date: 06/15/18 Current Visit: Yes Status: Chronic (10) Urinary tract infection Current Visit: Yes Status: Acute Qualifiers: Urinary tract infection type: site unspecified Hematuria presence: without hematuria Qualified Code(s): N39.0 - Urinary tract infection, site not specified - Plan This is a 68-year-old female with: Altered mental status, toxic encephalopathy: Resolved. Seems to be back to baseline Could be secondary to episodes of hypoglycemia, infection (flu, ankle?, decubitus ulcer?, UTI) Continue to monitor. Continue antibiotics with Rocephin, day 3. Vancomycin with dialysis Left Ankle fracture status post surgery complicated by ankle infection with current discharge Wound care consult, pending Wound culture positive for MRSA, sensitive to vancomycin or tetracyclines. Foot x-ray suspicious for osteoporosis versus osteomyelitis. MRI of the ankle ordered, possible infarct versus osteomyelitis Continue vancomycin with dialysis General surgery consulted. Recommendations appreciated. No surgical intervention recommended at this time. Recent history: Patient with a ankle fracture, surgical fixation/ER. Complicated by vascular disease. Patient is status post fem pop bypass in January 2018, after which he has been 22 days in a retirement facility. 2018 her hardware was removed from the ankle, complicated by infection in the ankle. She was admitted to [facility] for a debridement. After which she was discharged on Ltac ([facility] in [place] for 2 weeks) In March 2018, wound was again infected, she was admitted to the hospital in [facility]. This stay was complicated by bilateral pleural effusions requiring thoracocentesis x2. She was then transferred to and Ltac [facility]. Patient presented to hospital this admission from [facility]. Perma-Cath pulled out by patient Stat chest x-ray negative for pneumothorax. Bleeding stopped by holding pressure. Dr. Aleman on case, for Perma-Cath placement for continued dialysis. Stage II decubitus ulcer Consult wound care, pending Influenza A positive Continue Tamiflu Supportive care Essential hypertension Will restart home medications History of CVA Stable, will restart home medications Type 2 diabetes mellitus, with insulin use Hold diabetes medications at this time secondary to hypoglycemic episodes. We will restart as tolerated. ESRD, on dialysis Monday Nephrology consult, recommendations appreciated Urinary tract infection Continue Rocephin, day 3 Urine cultures pending Multiple episodes of hypoglycemia Resolved Could be secondary to the infection. Continue glucose monitoring hold diabetes medications at this time. DVT prophylaxis: Lovenox GI prophylaxis: None Diet: Renal Disposition: Plan is to treat flu/other infection. Once stable, will discharge home with outpatient follow up with vascular surgery.
[2018-06-18] MEDS ORDERED: CEFAZOLIN/SWI 1gm 1 GM/10 ML SYR IV SCH (13:00)
[2018-06-18] MEDS: MEDIHONEY 44 ML TOPICAL TUBE TOP SCH (16:00)
[2018-06-18] MEDS ORDERED: TRAMADOL HCL 50 MG TAB PO PRN (18:11)
--- NOTE | 2018-06-18 18:11 | CON ---
Date of Consultation: 06/18/2018 Reason: The patient needs a dialysis catheter. History Of Present Illness: The patient is a 68-year-old female with multiple medical problems, admi tted with altered mental status on the with end-stage renal disease, requiring hemodialysis. Ye sterday, she in her sleep states that she pulled it out according to the daughter. This is the third time she has pulled the Tesio catheter out. The last one was placed back in [place] and it was appr oximately 2 weeks ago that the last catheter was placed. She is awake, alert. No fever or chills. Somewhat drowsy and does not pay attention when somebody is speaking to her. Review of Systems: Otherwise unremarkable. Past Medical History: Significant for end-stage renal disease, hypertension, diabetes, stroke, seizu res. Past Surgical History: Cholecystectomy, knee surgery, hysterectomy, ankle surgery, carpal tunnel angel oni, foot surgery. Allergies: CODEINE. Laboratory Data: She used to smoke, does not anymore. Does not drink alcohol. Family History: Significant for diabetes, heart disease, unknown type of cancer. Physical Examination: Vital signs: Stable. She is afebrile. General: She is awake, alert. Head and Neck: No mass. Chest: Clear. Heart: S1 and S2. Abdomen: Soft. Extremities: Neurovascularly intact. Neuro: Nonfocal. There is a dressing placed on the right subclavian region. Laboratory Data: White count is normal, there is no left shift. H and H were 7.7 and 23.3 that was 2 days ago, yesterday it was 9.5 and 28.6. Chemistry reviewed. BUN is 54, creatinine is 3.27, and h er potassium is 4.0. Assessment: A 68-year-old female with multiple medical problems with end-stage renal disease, requir ing dialysis. Recommendations: We will go and place another Tesio catheter. It was explained to the patient and nelia johnson that she increases the risk every time she pulls it out for complications during the procedure as there is increasing scar tissue and narrowing of the vein. If she does not change her behavior an d somehow prevent pulling then this will lead to complications in the future. Also, the patient need s fistula/graft placed as soon as possible as she is going to require long-term dialysis. We will go ahead and place the Tesio catheter in the morning. The patient and family understand the risks, pat efits, and alternatives and agree to procedure. /MODL Voice ID: [id number] Report ID: [id number]
--- NOTE | 2018-06-18 19:20 | CON ---
History Of Present Illness: The patient is here with multiple medical problems including influenza i nfection/altered mental status and left ankle osteomyelitis versus infarct. Continues to be on antib iotic. The patient also pulled her dialysis catheter according to her by mistake and denies any othe r problems at this time. No headache, nausea, vomiting, chest pain, abdominal pain, constipation, or diarrhea. Past Medical History: Includes hypertension, hypercholesterolemia, congestive heart failure, end-sta ge renal disease, diabetes mellitus, seizure disorder, Sweet syndrome, stroke, cholecystectomy, knee surgery, hysterectomy, bunionectomy of the right side, carpal tunnel syndrome status post surgical an d left ankle surgeries. Social History: Ex-smoker, non-drinker. Lives at [facility]. Family History: Noncontributory. Medications: Vancomycin, cefazolin. See MARs for other medication. Allergies: CODEINE. Review of Systems: A 10-point review was performed. Physical Examination: General: This is a 68-year-old female, lying in bed, not in any acute cardiopulmonary distress. Vital Signs: Temperature 97.8, pulse 74, respirations 18, blood pressure 167/88. HEENT: Unremarkable. Neck: Supple. Lungs: Basal crackles. Heart: S1, S2. Regular. Abdomen: Soft, nontender. Bowel sounds present. EXTREMITIES: Left foot wound noted, both on lateral and medial side of the ankle. Good granulation tissue. No excessive discharge noted on the wound dressing. Laboratory Data: Lab data shows WBC 5.3, hemoglobin 9.5, platelets are 178. Chemistry shows sodium 139, potassium 4, chloride 100, bicarb 29, BUN 54, creatinine 2.2, glucose is 262. Wound cultures ar e growing MRSA. MRI of the ankle done on 06/15 shows the patient has subacute trimalleolar fracture, infarct talus and distal fibula. Osteomyelitis of distal fibula. Abnormal signal throughout the ta jeyson may be secondary to acute infarct, osteomyelitis, or fracture. Chest x-ray done on 06/17; minima l interstitial pulmonary edema. Assessment And Plan: A 68-year-old female with multiple medical problems, coming in with altered men ian status and left ankle wound and osteomyelitis and infarct. Methicillin-resistant Staphylococcus aureus growing from wound site. We will recommend to apply Xeroform dressing on daily basis while e patient is in hospital, then switch to Monday, Monday, Monday once the patient is discharge. Co ntinue vancomycin and cefazolin. We will follow the patient closely. Thank you for consult. NICK/TASHA Voice ID: [id number] Report ID: [id number]
--- NOTE | 2018-06-19 01:52 | PN ---
Date of Progress Note: 06/18/2018 Chief Complaint: End-stage renal disease. History Of Present Illness: The patient was admitted for altered mental status on hypoglycemia. She was found to have decreased responsiveness. She is undergoing dialysis 3 times per week on Monday, , and Monday. The patient underwent surgery of lower extremity. Review of Systems: Denies fever or chills. Physical Examination: Lungs: Clear to auscultation bilaterally. Heart: S1 and S2. Abdomen: Soft, benign. Extremities: Dressing in place. Impression And Plan: 1.Stage-2 pressure ulcer of the buttock. Continue wound care and antibiotics. 2.Influenza. Continue treatment for influenza. 3.End-stage renal disease, on dialysis. Dialysis with ultrafiltration will be done. Monitor blood pressure closely during dialysis. 4.Anemia and chronic kidney disease. Continue erythropoietin-stimulating agents. 5.Urinary tract infection. Continue antibiotics. Monitor urine culture. WILLIE/TASHA Voice ID: [id number] Report ID: [id number]
[2018-06-19] MEDS: DIPHENHYDRAMINE 50 MG/ML VIAL IV PRN ×2 (05:51→18:43)
[2018-06-19 06:13] LABS: Protime INR 1.01
[2018-06-19] MEDS: INSULIN -REGULAR HUMAN 50 UNIT/0.5 ML ML SQ SCH ×4 (07:30→21:51)
[2018-06-19] MEDS: SEVELAMER CARBONATE 800 MG TABLET PO SCH ×3 (08:00→17:17)
[2018-06-19] MEDS ORDERED: NA CHLORIDE 0.9% 500 ML ONE (08:18)
[2018-06-19] MEDS ORDERED: CEFAZOLIN SODIUM 1 GM/VIAL ONE (08:21)
[2018-06-19] MEDS: NIFEDIPINE XL 30 MG TABLET PO SCH (09:00)
[2018-06-19] MEDS: HYDRALAZINE HCL 25 MG TABLET PO SCH ×3 (09:00→21:00)
[2018-06-19] MEDS ORDERED: LIDOCAINE 2% MPF 5 ML VIAL ONE (09:17)
[2018-06-19] MEDS ORDERED: MIDAZOLAM HCL 2 MG/2 ML INJ ONE (09:17)
[2018-06-19] MEDS ORDERED: PROPOFOL 200 MG/20 ML VIAL IV ONE (09:17)
[2018-06-19] MEDS ORDERED: HEPARIN 5000 UNIT/ML 1 ML VIAL ONE (10:35)
[2018-06-19] MEDS ORDERED: NA CHLORIDE 0.9% 100 ML IV ONE (10:35)
[2018-06-19] MEDS ORDERED: LIDOCAINE 1% MPF 30 ML VIAL ONE (10:35)
[2018-06-19] MEDS ORDERED: NS 0.9% VIAL 10 ML ONE (10:35)
--- NOTE | 2018-06-19 10:44 | P.OP ---
Preoperative diagnosis: ESRD Postoperative diagnosis: same Primary procedure: BOBY Pelayo Secondary procedure: Fluoroscopy Anesthesia: MAC Estimated blood loss: min Specimen: none Findings: as above Complications: None Transferred to: Recovery Room Condition: Good
[2018-06-19 11:29] LABS: Potassium 4.3 mmol/L (3.5-5.1)
--- NOTE | 2018-06-19 11:31 | RAD REPORT ---
EXAM DESCRIPTION: RAD - Chest Single View - 06/19/2018 11:26 am CLINICAL HISTORY: s/p Tesio Chest pain. COMPARISON: Chest Single View dated 06/17/2018; Chest Single View dated 01/01/2018; Chest Single View d ated 08/31/2017; Chest Single View dated 08/01/2017 FINDINGS: Portable technique limits examination quality. Right-sided venous catheter has been placed with its tip in the SVC. No postprocedure pneumothorax. T he heart is mildly enlarged in size. No displaced fractures. IMPRESSION: No postprocedure pneumothorax.
[2018-06-19] MEDS: MEDIHONEY 44 ML TOPICAL TUBE TOP SCH (12:22)
[2018-06-19] MEDS ORDERED: cloNIDine HCl 0.1 MG TAB PO PRN (14:00)
[2018-06-19] MEDS: JUVEN PACKET PO SCH ×2 (14:11→22:03)
[2018-06-19] MEDS: OSELTAMIVIR 75 MG CAP PO SCH (14:12)
--- NOTE | 2018-06-19 17:18 | PN ---
Date of Progress Note: 06/19/2018 Subjective: Patient seen and examined. Chart reviewed and case discussed with Dr. Sanderson. The patie nt overall is very sleepy status post procedure. No acute events overnight. Code status is full. Physical Examination: Vital Signs: Temperature 98, heart rate of 70, blood pressure 199/88, respirations 18, O2 98% on flory m air. General: Awake, alert, oriented x3. Elderly female, obese, ill appearing. CV: S1 and S2. Regular rate and rhythm. Peripheral pulses present. Respiratory: Moving air well bilaterally. No wheezing or stridor. Gastrointestinal: Abdomen is soft, nontender, nondistended. Positive bowel sounds. No guarding or rigidity. Extremities: No clubbing, cyanosis, or edema. Neurologic: Nonfocal. Laboratory Data: Sodium 137, potassium 4.3, chloride 102, CO2 27, BUN 81, creatinine 2.61, glucose 2 10, calcium 8.8. WBC pending. Blood cultures negative. Final wound cultures growing MRSA. Anaerob ic wound cultures, no growth. Urine culture shows 3+ yeast. Influenza screen positive for flu A. Assessment And Plan: A 68-year-old female with: 1.Acute toxic encephalopathy, resolving. The patient starting to get back to baseline, likely due t o infection, urinary tract infection, decubitus ulcer. We will resume patient's Depakote. 2.Left ankle fracture status post surgery complicated by ankle infection with discharge. Continue a ntibiotics. Continue wound care. Cultures are positive for methicillin-resistant Staphylococcus aur eus from the wound. The patient is on vancomycin. MRI shows osteomyelitis of the distal fibula and abnormal signal through the talus, which may be secondary to acute infarct, osteomyelitis, or fractur e. Surgery consulted. Recommendations appreciated. No surgical intervention indicated at this time . The patient apparently had a complicated history with the ankle fracture. She was status post fem -pop bypass in January 2018, spent 22 days in SNF. Hardware was removed from the ankle due to compli cation of infection, went to [facility] for debridement, and was then discharged to LTAC in [place] for 2 weeks at [place], and then had a repeat infection in March of 2018. Everything s tarted in January and again admitted to hospital in [facility]. Stay was complicated by pleural effusi ons and had thoracentesis, and was referred to LTAC at [facility]. 3.Stage II decubitus ulcer. Continue wound care. Offloading. 4.Influenza A positive. Continue Tamiflu, droplet precautions. 5.Essential hypertension. Restart home medications, very much uncontrolled. 6.History of cerebrovascular accident, stable. 7.Diabetes mellitus type 2 with long-term use of insulin with hyperglycemia. We will restart long-a cting insulin. Continue sliding scale. Monitor Accu-Cheks. 8.End-stage renal disease, on dialysis Monday, Monday, Monday. Nephrology on board. The patient apparently had taken out her dialysis catheter in her sleep. Dr. Sanderson has replaced the catheter to day. 9.Acute cystitis without hematuria. Urine cultures showed yeast. The patient has been treated with antibiotics. 10.Perm-A-Cath removal by patient status post replacement today. 11.Multiple episodes of hypoglycemia, resolved, likely secondary to infection. We will resume home dose of insulin as the patient's blood glucose levels are in the 200s for the past several days. 12.Gastrointestinal and deep venous thrombosis prophylaxis with Lovenox. Plan: Follow up with Infectious Disease and work on discharge placement. /TASHA Voice ID: [id number] Report ID: [id number]
--- NOTE | 2018-06-19 20:33 | PN ---
Subjective: The patient lying in bed. No new complaints. No fever. No diarrhea. Objective: Vital Signs: Temperature 98, pulse 70, respirations 18, blood pressure 160/80. Lungs: Basal crackles. Heart: S1 and S2, regular. Abdomen: Soft, nontender. Bowel sounds present. Extremities: No edema. Wounds noted. Laboratory Data: Shows no WBC. No new labs available at this time except sodium 137, potassium 4.3, chloride 102, bicarb 27, BUN 81, creatinine 2.6, glucose is 210. Wound cultures growing MRSA. Current Medication: Include vancomycin. Assessment And Plan: Methicillin-resistant Staphylococcus aureus wound infection of the foot and ank le wounds. Sacral wound improving. Renal insufficiency. Discontinue vancomycin and start the patie nt on doxycycline 100 mg q.12 hours. NF/MODL Voice ID: [id number] Report ID: [id number]
[2018-06-19] MEDS ORDERED: INSULIN GLARGINE HUM REC ANLOG 35 UNIT SQ SCH (21:00)
[2018-06-19] MEDS: TERAZOSIN HCL 1 MG CAP PO SCH (21:00)
[2018-06-19] MEDS: INSULIN GLARGINE 100 UNITS/ML SQ SCH (21:51)
[2018-06-19] MEDS: FERROUS SULFATE 325 MG TAB PO SCH (21:55)
[2018-06-19] MEDS: CARVEDILOL 12.5 MG TAB PO SCH (21:56)
[2018-06-19] MEDS: ATORVASTATIN 20 MG TAB PO SCH (21:56)
[2018-06-19] MEDS: DIVALPROEX DR 500MG TAB PO SCH (22:02)
--- NOTE | 2018-06-19 22:18 | OP ---
Date of Procedure: 06/19/2018 Surgeon: Casey Sanderson MD Preoperative Diagnosis: End-stage renal disease. Postoperative Diagnosis: End-stage renal disease. Procedure: Placement of right IJ Tesio catheter and interpretation of intraoperative fluoroscopy. Estimated Blood Loss: Minimal. Specimen: None. Findings: Normal anatomy. Anesthesia: MAC. Complications: None. Disposition: The patient tolerated the procedure in stable condition and was taken to the recovery i n good general condition. Description Of Procedure: The patient was brought to the OR and placed in supine position. MAC anes thesia was begun. The patient was prepped and draped in usual sterile fashion. Lidocaine 1% was inf iltrated locally. An 18-gauge needle was used to access the right IJ vein. Guidewire was passed. P osition was confirmed with fluoroscopy. Counterincision made on the right anterior chest. Tunneling device was used to tunnel the Tesio catheter between the 2 wounds. Seldinger technique was used, ve in dilated and tip of the catheter placed in the SVC under fluoroscopy. Then flushed with heparin an d packed with heparin with good blood flow return. Subsequently, 3-0 Chromic used to approximate sub cutaneous tissue, 2-0 nylon used to secure the tube to the chest wall with 3 stitches on both sides. Normally, we just put one 3-0 nylon on either side, but because of the patient's history of pulling it out, we secured it as well as we could surgically. Then sterile dressing was applied. The patient was awakened and taken to recovery in good general condition. Chest x-ray has been ordered. /MODL Voice ID: [id number] Report ID: [id number]
--- NOTE | 2018-06-19 22:40 | PN ---
Date of Progress Note: 06/19/2018 Chief Complaint: End-stage renal disease, on dialysis. History Of Present Illness: The patient was admitted for altered mental status, was found to have hy poglycemia. She had decreased responsiveness. She has end-stage renal disease and is undergoing ladi lysis 3 times per week on Tuesdays, , and Saturdays. Yesterday, she pulled out her dialysis catheter; and today, she underwent a procedure to insert tunneled dialysis catheter. The patient is to have dialysis today for metabolic clearance and ultrafiltration. Review of Systems: Denies complaints. Physical Examination: Lungs: Clear to auscultation bilaterally. Heart: S1, S2. Abdomen: Soft, benign. Extremities: Dressing in place. Impression And Plan: 1.Stage-2 pressure ulcer on the buttock. Continue wound care and antibiotics. 2.Influenza. Continue treatment for influenza. 3.End-stage renal disease. Dialysis with ultrafiltration will be done today. Monitor blood pressur e closely during dialysis. 4.Urinary tract infection. Continue antibiotics. Adjust antibiotics to the sensitivity. 5.Anemia and chronic kidney disease. Continue HEATHER. WILLIE/MODFlor Voice ID: [id number] Report ID: [id number]
[2018-06-20] MEDS: DIPHENHYDRAMINE 50 MG/ML VIAL IV PRN ×2 (00:10→23:33)
[2018-06-20] MEDS: EPOETIN ALFA 4000 UNIT/1 ML VIAL SQ SCH (01:22)
[2018-06-20] MEDS: VANCOMYCIN/NS 1 gm 1 GM/250 ML BAG IV SCH (02:07)
[2018-06-20 05:56] LABS: Absolute Lymphocytes (CBC) 1.8 K/uL (0.7-4.9); Absolute Monocytes 0.7 K/uL (0.1-1.3); Absolute Neutrophil 4.4 K/uL (1.8-8.0); Basophils % 0.6 % (0-1.3); Eosinophils % 6.4 % (0-4.4); Hematocrit 26.5 % (36.0-45.0); Lymphocytes % 24.8 % (15.3-44.8); MPV 10.1 fL (7.6-11.3); Monocytes % 8.9 % (3.3-12.3); RBC Red Blood Cell Count 2.93 M/uL (3.86-4.86)
[2018-06-20 06:19] LABS: Albumin 2.3 g/dL (3.4-5.0); Bilirubin Total 0.3 mg/dL (0.2-1.0); Magnesium 1.9 mg/dL (1.8-2.4); Phosphorus 2.3 mg/dL (2.5-4.9); Potassium 3.8 mmol/L (3.5-5.1); Protein, Total 7.2 g/dL (6.4-8.2)
[2018-06-20] MEDS: INSULIN -REGULAR HUMAN 50 UNIT/0.5 ML ML SQ SCH ×4 (07:30→21:42)
[2018-06-20] MEDS: POLYETHYL GLY 3350 17 GM/DOSE PO SCH (09:00)
[2018-06-20] MEDS: FERROUS SULFATE 325 MG TAB PO SCH ×2 (09:59→21:03)
[2018-06-20] MEDS: HYDRALAZINE HCL 25 MG TABLET PO SCH ×3 (09:59→21:03)
[2018-06-20] MEDS: DIVALPROEX DR 500MG TAB PO SCH ×2 (09:59→21:03)
[2018-06-20] MEDS: ASPIRIN 81 MG CHEWABLE TABLET PO SCH (10:00)
[2018-06-20] MEDS: NIFEDIPINE XL 30 MG TABLET PO SCH (10:00)
[2018-06-20] MEDS: SEVELAMER CARBONATE 800 MG TABLET PO SCH ×3 (10:00→16:59)
[2018-06-20] MEDS: CARVEDILOL 12.5 MG TAB PO SCH ×2 (10:00→21:04)
[2018-06-20] MEDS: CLOPIDOGREL 75 MG TABLET PO SCH (10:00)
[2018-06-20] MEDS: JUVEN PACKET PO SCH ×2 (10:01→21:18)
[2018-06-20] MEDS: MEDIHONEY 44 ML TOPICAL TUBE TOP SCH (10:01)
--- NOTE | 2018-06-20 11:44 | PN ---
Subjective: The patient feeling better today. Denies any headache, nausea, vomiting, chest pain, ab dominal pain, constipation, or diarrhea. Objective: Vital Signs: Temperature 98, pulse 70, respirations 18, blood pressure 160/70. Lungs: Clear to auscultation. Heart: S1 and S2, regular. Abdomen: Soft, nontender. Bowel sounds present. Extremities: Wounds noted. Laboratory Data: Shows WBC 7.4, hemoglobin 8.9, platelets 222. Chemistry shows sodium 135, potassiu m 3.8, chloride 100, bicarb 26, BUN 39, creatinine 1.6, glucose 161. Assessment And Plan: Methicillin-resistant Staphylococcus aureus infection of the left ankle wound. Continue antibiotic and wound care. Sacral wound healing. Continue supportive care. We will follo w the patient as needed. NF/MODL Voice ID: [id number] Report ID: [id number]
--- NOTE | 2018-06-20 15:45 | P.PN ---
Subjective Date of Service: 06/20/18 Chief Complaint: Decreased responsiveness Subjective: No new changes ESRD pt , recent leg surgery, admitted for AMS and hypoglycemia High BP , will increase Nifidipine Pt pulled HD catheter yesterday and new cath was placed HD op as MWF , will do TTsat while hospitalized monitor vanco level no need for surgical intervention at this time Physical Examination - Vital Signs Temperature: 98.4 F Blood Pressure: 169/74 Pulse: 63 Respirations: 15 Pulse Ox (%): 98 - Physical Exam General: Alert, In no apparent distress HEENT: Atraumatic Neck: Supple, JVD not distended, Without JVD or thyroid abnormality Respiratory: Clear to auscultation bilaterally, Normal air movement Cardiovascular: No edema, Normal pulses, Regular rate/rhythm, Normal S1 S2 Gastrointestinal: Normal bowel sounds, Soft and benign - Studies Microbiology Data (last 24 hrs): 06/14/18 11:15 Blood - Blood Aerobic Blood Culture - Final No growth in 5 days. 06/14/18 11:15 Blood - Blood Anaerobic Blood Culture - Final No growth in 5 days. 06/14/18 11:00 Blood - Blood Aerobic Blood Culture - Final No growth in 5 days. 06/14/18 11:00 Blood - Blood Anaerobic Blood Culture - Final No growth in 5 days. Assessment And Plan - Current Problems (Diagnosis) (1) Influenza A Onset Date: 06/15/18 Current Visit: Yes Status: Acute (2) Stage II pressure ulcer of buttock Onset Date: 06/15/18 Current Visit: Yes Status: Acute (3) ESRD (end stage renal disease) on dialysis Onset Date: 06/15/18 Current Visit: Yes Status: Chronic - Plan 68-year-old female with history of CVA in the past, complicated with seizures, hypertension, cirrhosis, insulin-dependent diabetes admitted for decreased level of consciousness. Patient with a recent ankle surgery in [place] complicated by infected ankle, treated. She underwent rehab and was then transferred to [address] [place] [address]. The [facility], but at the [facility] this time she was found with glycemic in the 40s to 50s. She was given glucose gel, which are blood sugars in the 400. She was monitored and on recheck again had dropped down to the 50s. Therefore EMS was called. When EMS checked, blood stick blood sugar was 92 and she was hemodynamically stable. She was then brought to the emergency room. In the ER, she was unresponsive initially with a blood sugar of 92. She was started on gentle hydration with IV fluids of D5 as her blood pressure systolic was in the 70s. She was also given Narcan as she does take lorazepam in the [facility]. In the ER, she was also found to have influenza A positive test. She also has a stage II decubitus ulcer. At the time of my exam, patient very sleepy, responsive to pain. Not really wanting to answer any questions as she is very sleepy. Does try to open her eyes when told. 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
--- NOTE | 2018-06-20 18:24 | P.CNS ---
Date of Consult: 06/20/18 Reason for Consult: post-op infection left ankle Requesting Physician: Renan Carrero Chief Complaint: Chronic wounds and osteomyelitis left ankle History of Present Illness: This 68-year-old female was admitted this visit for altered mental status and part of her evaluation revealed chronic draining wounds on each side of the left ankle. This patient also came to this emergency room on with a fracture dislocation of the left ankle. Reductions 2 proved unstable when splinted. The patient was taken to surgery for ORIF on 01/02/18. Doppler pulses could not be found when the foot was dislocated. With each reduction perfusion in the foot seemed to improve. On the right only a thready posterior tibialis pulse could be found with the Doppler. ORIF was carried out with the usual medial and lateral incisions for reduction and fixation of medial and lateral malleoli. On the day following surgery the foot was dusky and cool, and Dr. Andrade Monreal consulted for possible stent placement. Abdominal runoff angiogram showed complete blockage of the superficial femoral artery in the left lower extremity with right lower extremity showing reconstitution just above the popliteal. Severe small vessel disease was noted below the knee bilaterally. The patient was referred then to Michael Garcia M.D., vascular surgeon at [facility]. The patient was transferred to a higher level of care and a left fem-pop bypass was performed. The patient was placed in a [facility], and it was 3 weeks later on 01/23/18 when she came to my office for staple removal. Margins around the incisions were somewhat dark and fracture blister formation residual was noted, but neurovascular exam was intact and the rest of the foot appeared more pink and perfused. Stable were removed Steri-Strips applied. A week later she return for close follow-up and the incisions were noted to be partially opened having failed to heal. In conversation with Dr. Garcia, he indicated that the plastic surgeons were unable to swing flaps for coverage because of the extensive small vascular disease. The patient had a follow-up appointment with Dr. Garcia for the following day. Since then she has been managed at that higher level of care. The patient states that last week the fixation plate and screws were removed because the hardware had been exposed. She has been noted to be a poor historian during this hospitalization so it was not surprising that she did not recall Doctor's name, hospital or plan for continued care. Allergies codeine Allergy (Verified 08/31/17 22:20) Shortness of breath Home Medications: Aspirin 81 mg PO DAILY 01/01/18 Atorvastatin Calcium 20 mg PO DAILY 01/01/18 Carvedilol 12.5 mg PO BID 01/01/18 Clopidogrel Bisulfate [Plavix*] 75 mg PO DAILY 01/01/18 Clonidine HCl [Catapres] 0.1 mg PO Q8HP 06/15/18 Divalproex Sodium [Depakote] 500 mg PO Q12HR 06/15/18 Ferrous Sulfate [Iron] 325 mg PO Q12HR 06/15/18 Hydralazine HCl [Apresoline] 50 mg PO Q8HR 06/15/18 Insulin Glargine,Hum.rec.anlog [Lantus Solostar] 35 unit SQ Q12HR 06/15/18 Insulin Lispro [Humalog Kwikpen U-100] 3 unit SQ AC 06/15/18 Lorazepam [Ativan] 1 mg PO Q8HP 06/15/18 Mag Hydroxide 8% [Milk Of Magnesia*] 30 ml PO Q24H 06/15/18 Nifedipine [Nifedipine ER] 30 mg PO DAILY 06/15/18 Nystatin Powder [Mycostatin (Powder)*] 1 pretty TOP DAILY 06/15/18 Polyethylene Glycol 3350 [Glycolax] 17 gm PO DAILY 06/15/18 Sennosides 17.2 mg PO DAILY 06/15/18 Terazosin HCl 4 mg PO BEDTIME 06/15/18 - Past Medical/Surgical History Diabetic: Yes -: HTN -: DM -: Stroke (JUNE 2017) -: Seizures -: Progressive Tremors -: Sweets Syndrome 2001 -: Stroke (2005) -: cholecystectomy -: Knee surgery -: Hysterectomy -: Bunionectomy Right Side -: Carptal Tunnel Surgery Right Side -: left ankle sx - Family History Mother Medical History: Cancer Father Notes: Heart Attack Sister Medical History: Diabetes Brothers Medical History: Diabetes Notes: Heart Attack - Social History Smoking Status: Unknown if ever smoked Alcohol use: No CD- Drugs: No Caffeine use: Yes Place of Residence: Skilled Nursing Review of Systems is unable to be obtained Physical Examination Temp Pulse Resp BP Pulse Ox 97.7 F 66 15 135/64 99 02/20/19 16:00 06/20/18 16:00 06/20/18 16:00 06/20/18 16:00 06/20/18 16:00 General: In no apparent distress, Oriented x3, Cooperative (the patient was quite sleepy and slow to respond but did awaken and carry on a reasonable conversation answering questions to the best of her ability), Confused ( indicating surgery was just 1 week ago and occurred at an unknown Hospital by an unknown Dr.) HEENT: Atraumatic, Normocephalic Neck: Supple Respiratory: Normal air movement Cardiovascular: Edema (the left ankle had a wound care bandage in place with some drainage on each side. vehicle assembler visit prior to surgery so the bandage was not disturbed the patient was still able to move her toes and tilt her ankle.) Capillary refill: >2 Seconds Gastrointestinal: Soft and benign Integumentary: Skin lesion (draining wounds from both sides of the left ankle have produced MRSA now getting vancomycin IV therapy.) Neurological: Sensation intact External genitalia: Deferred Rectal: Deferred Imagings Data: During this hospitalization; X-ray in 2 views showed subacute trimalleolar fracture with hardware removed and signs of possible osteomyelitis with MRI suggested. MRI left ankle showed: Subacute trimalleolar fracture Infarcts talus and distal fibula Osteomyelitis distal fibula Abnormal signal throughout the talus may be secondary to ACUTE INFARCTS, osteomyelitis, or fracture - Problems (1) Postoperative infection Onset Date: 06/15/18 Current Visit: Yes Status: Chronic Qualifiers: Encounter type: subsequent encounter Postoperative infection type: deep incisional surgical site Qualified Code(s): T81.42XD - Infection following a procedure, deep incisional surgical site, subsequent encounter Conclusions/Impression: ASSESSMENT: This patient and her family give a history of severe vascular impairment with claudication symptoms after walking only 50 steps. She was always being criticize for not exercising and having to sit down because of intense complaints of pain. Dislocation of the ankle proved to be the straw that broke the camel's back. After breaking her ankle in a fall she crawled out of the kitchen to her bedroom and crawled into bed because she could not contact anyone to come to her home. One would have to imagine the foot was dangling and twisted during that time period without splinting. When circulation was not improved with ORIF, abdominal runoff angiogram showed stent management was not possible and the patient was transferred to a higher level of care to subsequently have a fem-pop bypass. Wound problems around the incisions were noted 3 weeks postop when fanny were removed, and one week later some opening of the incisions and appearance of drainage confirmed the limited circulation was leading to failure of healing. Dr. Garcia was contacted and care at the higher level was confirmed. Internal fixation hardware has been removed so I suspect that is part of a management plan with which I hope the patient is complying. Further conversations with the family will determine if the treatment plan has been outlined. PLAN: Osteomyelitis whenever encountered in my practice is reason for referral to a a higher level of care where someone with more experience with wound care and debridements can make appropriate decisions. In my opinion, this patient is in store for a higher level of debridement because of the extensive small vessel arterial vascular insufficiency precluding flap management. The MRI demonstrates a likely infarct episode from which I would not expect the foot and ankle to recover, and the level of amputation may have questionable survival at the A level.
--- NOTE | 2018-06-20 20:35 | PN ---
Date of Progress Note: 06/20/2018 Subjective: The patient is seen and examined. Chart reviewed and case discussed with RN. The patie nt is much more awake and alert. Discussed with Dr. Gonzalez, the patient can be discharged on vancomy clarence for 6 weeks. The patient was again attempting to remove her dialysis catheter when Dr. Gonzalez wa lked in. The patient otherwise denies any attempt. Medications: List reviewed. Physical Examination: Vital Signs: Temperature 98.4, heart rate 63, blood pressure 169/74, respirations 15, and O2 of 98% on room air. General: Awake, alert, and oriented x3. Elderly female, somewhat ill-appearing, obese. CV: S1 and S2. Regular rate and rhythm. Peripheral pulses present. Respiratory: Moving air well bilaterally. No wheezing. Gastrointestinal: Abdomen is soft, nontender, and nondistended. Positive bowel sounds. Extremities: No clubbing, cyanosis, or edema. Neurologic: Nonfocal. Laboratory Data: Sodium 135, potassium 3.8, chloride 100, CO2 of 26, BUN 39, creatinine 1.64, glucos e 161, calcium 8.1, phosphorus 2.3, and magnesium 1.9. Albumin 2.3. WBC 7.4, H and H of 8.9 and 26. 5, platelets 222. Blood cultures, no growth to date. Wound cultures, growing out MRSA. Assessment And Plan: A 68-year-old female with, 1.Acute toxic encephalopathy, resolving, seems to be back to baseline, secondary to urinary tract in fection, ulcer and other infections. 2.Left ankle fracture, status post surgery, complicated by ankle infection. The patient did have wo unds and had hardware removed. Currently, wound cultures are growing methicillin-resistant Staphyloc occus aureus. Continue vancomycin. I spoke with Infectious Disease. He recommends continuing vanco mycin for 6 weeks with dialysis. MRI does show osteomyelitis of the distal fibula and abnormal signa l through the talus, which may be secondary to acute infarct, osteomyelitis or fracture. Surgery and Ortho on board. No surgical intervention at this time. 3.Stage II decubitus ulcer. We will continue wound care and offloading. 4.Influenza A positive. The patient has completed Tamiflu. 5.Essential hypertension. We will restart home medications, not well controlled. 6.History of cerebrovascular accident, stable. 7.Diabetes mellitus type 2 with long-term use of insulin with hyperglycemia. We will continue long- acting insulin. Monitor Accu-Cheks. Continue sliding scale. 8.End-stage renal disease, on hemodialysis, usually Monday, Monday, and Monday. The patient was dialyzed yesterday. I appreciate Nephrology input. 9.Acute cystitis without hematuria. Urine culture is showing yeast. The patient completed treatmen t with antibiotics. 10.PermCath removal by the patient, now has been replaced by Dr. Sanderson. This is her third attempted removal with success. The patient again trying to remove her catheter today. She states that she i s unaware of what she is doing. 11.Multiple episodes of hypoglycemia, resolved. The patient is tolerating insulin, we will slowly t itrate back to her home dose. 12.Deep venous thrombosis prophylaxis with Lovenox. PLAN: Refer back to SNF, arrange for IV antibiotics with dialysis. YEHUDA Voice ID: [id number] Report ID: [id number]
[2018-06-20] MEDS: TERAZOSIN HCL 1 MG CAP PO SCH (21:03)
[2018-06-20] MEDS: ATORVASTATIN 20 MG TAB PO SCH (21:03)
[2018-06-20] MEDS: INSULIN GLARGINE 100 UNITS/ML SQ SCH (21:43)
[2018-06-21 06:25] LABS: Absolute Lymphocytes (CBC) 2.5 K/uL (0.7-4.9); Absolute Monocytes 0.7 K/uL (0.1-1.3); Absolute Neutrophil 3.9 K/uL (1.8-8.0); Basophils % 0.6 % (0-1.3); Hematocrit 25.3 % (36.0-45.0); Lymphocytes % 32.8 % (15.3-44.8); Monocytes % 9.3 % (3.3-12.3); RBC Red Blood Cell Count 2.82 M/uL (3.86-4.86)
[2018-06-21 06:34] LABS: Albumin 2.3 g/dL (3.4-5.0); Bilirubin Total 0.3 mg/dL (0.2-1.0); Potassium 4.5 mmol/L (3.5-5.1); Protein, Total 6.8 g/dL (6.4-8.2)
[2018-06-21] MEDS: INSULIN -REGULAR HUMAN 50 UNIT/0.5 ML ML SQ SCH ×4 (07:30→20:44)
--- NOTE | 2018-06-21 08:15 | RAD REPORT ---
EXAM DESCRIPTION: RAD - Fluoroscopy <1 Hour - 06/21/2018 6:48 am CLINICAL HISTORY: Venous catheter insertion. HEMODIALYSIS CATH INSERT COMPARISON: No comparisons FINDINGS: Fluoroscopic imaging is submitted from placement of a venous catheter. Details of the pro cedure not available. Fluoroscopy time: 0.1 minutes.
[2018-06-21] MEDS: ASPIRIN 81 MG CHEWABLE TABLET PO SCH (10:59)
[2018-06-21] MEDS: SEVELAMER CARBONATE 800 MG TABLET PO SCH ×3 (10:59→18:30)
[2018-06-21] MEDS: POLYETHYL GLY 3350 17 GM/DOSE PO SCH (10:59)
[2018-06-21] MEDS: CARVEDILOL 12.5 MG TAB PO SCH ×2 (10:59→20:40)
[2018-06-21] MEDS: FERROUS SULFATE 325 MG TAB PO SCH ×2 (11:00→20:40)
[2018-06-21] MEDS: DIVALPROEX DR 500MG TAB PO SCH ×2 (11:00→20:41)
[2018-06-21] MEDS: CLOPIDOGREL 75 MG TABLET PO SCH (11:01)
[2018-06-21] MEDS: HYDRALAZINE HCL 25 MG TABLET PO SCH ×3 (11:01→20:41)
[2018-06-21] MEDS: NIFEDIPINE XL 60 MG TABLET PO SCH (11:01)
[2018-06-21] MEDS: JUVEN PACKET PO SCH ×2 (11:02→20:42)
[2018-06-21] MEDS: MEDIHONEY 44 ML TOPICAL TUBE TOP SCH (15:09)
[2018-06-21] MEDS: EPOETIN ALFA 4000 UNIT/1 ML VIAL SQ SCH (15:17)
--- NOTE | 2018-06-21 16:59 | PN ---
Date of Progress Note: 06/21/2018 Subjective: The patient seen and examined. Chart reviewed and case discussed with RN. The patient had uneventful night. No acute events. Medications: List reviewed. Physical Examination: Vital Signs: Temperature 97, blood pressure 171/74, respirations 15, pulse 64, O2 99% on room air. General: Awake, alert, oriented x3. Elderly female. CV: S1 and S2. Regular rate and rhythm. Respiratory: Moving air well bilaterally. No wheezing. Gastrointestinal: Abdomen is soft, nontender, nondistended. Positive bowel sounds. Extremities: No clubbing or cyanosis. Trace pedal edema. Neurologic: Nonfocal. Skin: The patient has a sacral decubitus ulcer and wound on the left ankle foot. Laboratory Data: Sodium 136, potassium 4.5, chloride 101, CO2 28, BUN 73, creatinine 2.36, glucose 1 14, calcium 8.1, albumin 2.3. WBC 7.7, H and H 8.4 and 25.3, platelets 244. Wound cultures from the left ankle growing MRSA. Assessment And Plan: A 68-year-old female with: 1.Acute toxic encephalopathy, resolving. The patient much more alert and awake, likely secondary to urinary tract infection and wound infection. 2.Left ankle fracture status post surgery, complicated by ankle infection, hardware removed. Kate caputo, wound cultures are growing MRSA. Continue with vancomycin. We will continue with dialysis for 6 weeks total. MRI did show osteomyelitis of the distal fibula and the talus, which may be related t o acute infarct or even fracture. Orthopedics recommendation reviewed. Appreciate Dr. Contreras's inpu t. The patient is not a surgical candidate at this time due to her poor vascular function. 3.Stage 2 decubitus ulcer, improving. Continue wound care. 4.Influenza A positive. Treatment completed with Tamiflu. Clinically improved. 5.Essential hypertension, stable. Blood pressure not well controlled. 6.History of cerebrovascular accident, stable. 7.Diabetes mellitus type 2 with long-term use of insulin with hyperglycemia. I will continue with A ccu-Cheks and sliding scale insulin. 8.End-stage renal disease, on hemodialysis. Dr. Marquis on board. 9.Acute cystitis without hematuria. Treatment completed. 10.PermCath removal by the patient, intentional, now replaced. She has done this 3 times previously . The patient has been counseled. 11.Hypoglycemia, recurrent, now resolved. The patient is tolerating insulin. 12.Deep venous thrombosis prophylaxis with Lovenox. Plan: The patient is awaiting acceptance back to [facility]. We will discharge once accepted. YEHUDA Voice ID: [id number] Report ID: [id number]
--- NOTE | 2018-06-21 19:29 | PN ---
Subjective: The patient lying in bed. Denies any headache, nausea, vomiting, chest pain, abdominal pain, constipation, or diarrhea. Objective: Vital Signs: Temperature 97, pulse 64, respiration 15, blood pressure 171/74. Lungs: Clear to auscultation. Heart: S1, S2. Regular. Abdomen: Soft, nontender. Bowel sounds present. Extremity: Foot wound and sacral wound noted. Laboratory Data: Reviewed. Assessment And Plan: Methicillin-resistant Staphylococcus aureus infection of the left ankle. Sacra l wound, healing. Continue antibiotic and wound care. We will follow the patient as needed. NICK/MODFlor Voice ID: [id number] Report ID: [id number]
[2018-06-21] MEDS: ATORVASTATIN 20 MG TAB PO SCH (20:40)
[2018-06-21] MEDS: TERAZOSIN HCL 1 MG CAP PO SCH (20:41)
[2018-06-21] MEDS: DIPHENHYDRAMINE 50 MG/ML VIAL IV PRN (20:42)
[2018-06-21] MEDS: INSULIN GLARGINE 100 UNITS/ML SQ SCH (20:43)
[2018-06-21] MEDS: DIPHENHYDRAMINE 25 MG TAB/CAP PO PRN (22:22)
[2018-06-22] MEDS: guaiFENesin 100 MG/5 ML UCUP PO PRN (01:08)
--- NOTE | 2018-06-22 01:16 | P.PN ---
Date of Service: 06/21/18 S: PATIENT WAS SEEN IN DIALYSIS. SHE REMAINS PROUD OF HER ANKLE AND DECLARES IT IS DOING GREAT. O: WITH NONUNION MEDIAL MALLEOLUS, OSTEOMYELITIS WITH MRSA LATERAL MALLEOLUS, AND LIKELY AVASCULAR NECROSIS OF TALUS THE ANKLE IS DEFINITELY NOT DOING GREAT. THE PATIENT HAS EXTENSIVE SMALL VESSEL ARTERIAL INSUFFICIENCY THAT PRECLUDES VASCULAR FLAPS. BUT TODAY MEDIAL WOUND LOOKS TO BE CLEARING AND LATERAL WOUND HAS BEEN WITHOUT DRAINAGE. A: FAMILY NOT AROUND LAST TWO DAYS. FOUND OUT BY CALLING DR. BONILLA'S OFFICE THAT DR. OHARA REMOVED SCREWS AND PLATE IN REPORTING MED&LAT MALLEOLI TO BE HEALED AND PATIENT HAS NOT KEPT F/U APPT. SEEN THREE TIMES IN ED [facility]. P: SUSPECT AMPUTATION WILL BE THE END GAME, BUT WILL HAVE TO BREAK IT GENTLY AND GUIDE AWARENESS FOR PATIENT AND FAMILY.
--- NOTE | 2018-06-22 02:01 | PN ---
Date of Progress Note: 06/21/2018 Chief Complaint: End-stage renal disease, on dialysis. The patient is undergoing dialysis 3 times p er week. Today, she is scheduled to have dialysis with ultrafiltration. Hypertension, uncontrolled. Nicardipine was increased. The patient is admitted to the hospital after she sustained a fall and she underwent leg surgery. Mitchell wood was admitted for altered mental status and hypoglycemia. Review of Systems: Denies fever, chills. Physical Examination: Lungs: Clear to auscultation bilaterally. Heart: S1, S2. Abdomen: Soft, benign. Extremities: Slight edema. Impression And Plan: 1.End-stage renal disease. Continue dialysis 3 times per week. Monitor blood pressure closely duri ng dialysis and adjust ultrafiltration to prevent intradialytic hypotension. 2.Influenza. Continue Tamiflu. 3.Sacral wound. Continue wound care. 4.Foot infection. Continue vancomycin. Monitor vancomycin toxicity panel. 5.Renal osteodystrophy. Continue renal diet and binders. EB/MODL Voice ID: [id number] Report ID: [id number]
[2018-06-22 05:37] LABS: Absolute Lymphocytes (CBC) 2.1 K/uL (0.7-4.9); Absolute Monocytes 0.7 K/uL (0.1-1.3); Absolute Neutrophil 4.4 K/uL (1.8-8.0); Basophils % 0.5 % (0-1.3); Eosinophils % 5.8 % (0-4.4); Lymphocytes % 27.8 % (15.3-44.8); MPV 9.8 fL (7.6-11.3); Monocytes % 9.2 % (3.3-12.3); RBC Red Blood Cell Count 3.11 M/uL (3.86-4.86)
[2018-06-22 06:04] LABS: Albumin 2.6 g/dL (3.4-5.0); Bilirubin Total 0.3 mg/dL (0.2-1.0); Phosphorus 3.4 mg/dL (2.5-4.9); Potassium 4.5 mmol/L (3.5-5.1); Protein, Total 7.3 g/dL (6.4-8.2)
[2018-06-22] MEDS: INSULIN -REGULAR HUMAN 50 UNIT/0.5 ML ML SQ SCH ×4 (07:30→21:00)
[2018-06-22] MEDS: POLYETHYL GLY 3350 17 GM/DOSE PO SCH ×2 (09:00→10:02)
[2018-06-22] MEDS: MEDIHONEY 44 ML TOPICAL TUBE TOP SCH (09:00)
[2018-06-22] MEDS: SEVELAMER CARBONATE 800 MG TABLET PO SCH ×3 (09:08→17:14)
[2018-06-22] MEDS: DIVALPROEX DR 500MG TAB PO SCH ×2 (09:08→22:00)
[2018-06-22] MEDS: CLOPIDOGREL 75 MG TABLET PO SCH (09:08)
[2018-06-22] MEDS: NIFEDIPINE XL 60 MG TABLET PO SCH (09:09)
[2018-06-22] MEDS: FERROUS SULFATE 325 MG TAB PO SCH ×2 (09:09→22:00)
[2018-06-22] MEDS: HYDRALAZINE HCL 25 MG TABLET PO SCH ×3 (09:09→22:00)
[2018-06-22] MEDS: ASPIRIN 81 MG CHEWABLE TABLET PO SCH (09:10)
[2018-06-22] MEDS: JUVEN PACKET PO SCH ×2 (09:10→21:00)
[2018-06-22] MEDS: CARVEDILOL 12.5 MG TAB PO SCH ×2 (09:10→22:00)
--- NOTE | 2018-06-22 13:06 | PN ---
Subjective: The patient is lying in bed. Denies any headache, nausea, vomiting, chest pain, abdomin al pain, constipation, or diarrhea. Objective: Vital Signs: Temperature 97, pulse 67, respirations 15, and blood pressure 140/69. Lungs: Clear to auscultation. Heart: S1 and S2, regular. Abdomen: Soft, nontender. Bowel sounds present. Extremities: Left foot wounds noted. Sacral wound also noted. Laboratory Data: WBC 7.7, hemoglobin 9.3, and platelets are 260. Sodium 135, potassium 4.5, chlorid e 99, bicarb 29, BUN 52, creatinine 1.88, and glucose is 98. Assessment And Plan: Left foot osteomyelitis and left ankle wounds noted. End-stage renal disease, on dialysis. Sacral wound is improving. Continue antibiotic and wound care. We will follow the pat ient as needed. NICK/MODFlor Voice ID: [id number] Report ID: [id number]
--- NOTE | 2018-06-22 13:16 | P.PN ---
Subjective Date of Service: 06/22/18 Chief Complaint: Chronic wounds and osteomyelitis left ankle Subjective: No new changes ESRD pt , recent leg surgery, admitted for AMS and hypoglycemia BP controlled HD op as MWF , will do TTsat while hospitalized monitor vanco level no need for surgical intervention at this time cleared for discharge from nephrology point of view vanco during HD Physical Examination - Vital Signs Temperature: 98.1 F Blood Pressure: 151/67 Pulse: 67 Respirations: 15 Pulse Ox (%): 98 - Physical Exam General: Alert HEENT: Atraumatic Neck: Supple, JVD not distended Respiratory: Clear to auscultation bilaterally, Normal air movement Cardiovascular: No edema, Normal pulses, Regular rate/rhythm, Normal S1 S2, No gallops, No rubs, No murmurs Assessment And Plan - Current Problems (Diagnosis) (1) Influenza A Onset Date: 06/15/18 Current Visit: Yes Status: Acute (2) Stage II pressure ulcer of buttock Onset Date: 06/15/18 Current Visit: Yes Status: Acute (3) ESRD (end stage renal disease) on dialysis Onset Date: 06/15/18 Current Visit: Yes Status: Chronic - Plan 68-year-old female with history of CVA in the past, complicated with seizures, hypertension, cirrhosis, insulin-dependent diabetes admitted for decreased level of consciousness. Patient with a recent ankle surgery in [place] complicated by infected ankle, treated. She underwent rehab and was then transferred to [address] [place] [address]. The retirement, but at the retirement this time she was found with glycemic in the 40s to 50s. She was given glucose gel, which are blood sugars in the 400. She was monitored and on recheck again had dropped down to the 50s. Therefore EMS was called. When EMS checked, blood stick blood sugar was 92 and she was hemodynamically stable. She was then brought to the emergency room. In the ER, she was unresponsive initially with a blood sugar of 92. She was started on gentle hydration with IV fluids of D5 as her blood pressure systolic was in the 70s. She was also given Narcan as she does take lorazepam in the retirement. In the ER, she was also found to have influenza A positive test. She also has a stage II decubitus ulcer. At the time of my exam, patient very sleepy, responsive to pain. Not really wanting to answer any questions as she is very sleepy. Does try to open her eyes when told. 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
[2018-06-22] MEDS: DIPHENHYDRAMINE 25 MG TAB/CAP PO PRN ×2 (14:55→22:00)
--- NOTE | 2018-06-22 18:24 | PN ---
Subjective: The patient is seen and examined. Chart reviewed, and case discussed with RN and Dr. David. The patient pulled out her IV catheter yesterday. Does appear to have some confusion. Duncan s not remember talking to her daughter earlier this morning. Medications: List reviewed. Physical Examination: Vital Signs: Temperature 98.1, heart rate 67, blood pressure 151/67, respirations 15, O2 of 98% on r oom air. General: Awake, alert, oriented x3. An elderly female. CV: S1, S2. Peripheral pulses diminished. Respiratory: Moving air well bilaterally. Gastrointestinal: Abdomen is soft, nontender, nondistended. Positive bowel sounds. Extremities: No clubbing, cyanosis, or edema. Left ankle bandaged. Does have some drainage. Laboratory Data: Sodium 135, potassium 4.5, chloride 99, CO2 of 29, BUN 52, creatinine 1.88, glucose 98, calcium 8.7. WBC 7.7, H and H 9.3 and 28, platelets 260. Wound cultures from the left ankle gr owing MRSA. Remainder of the cultures are negative. Assessment: A 68-year-old female with: 1.Acute toxic encephalopathy, resolving. The patient still has some periods of confusion, likely se condary to urinary tract infection and wound infection. 2.Left ankle fracture, status post surgery, complicated by ankle infection, hardware removal, and cu rrently growing methicillin-resistant Staphylococcus aureus. We will continue treatment with vancomy clarence. The patient did remove her IV catheter and will receive vancomycin with dialysis tomorrow. Las t dose was 2 a.m., Monday. The patient has complicated fracture and due to history of failed bypa ss and infarct, will likely need to go back to specialist in [place] for further revision or possible yhlli-bpx-kaom amputation. Appreciate Dr. Contreras's input. 3.Stage II decubitus ulcer, improving. We will continue wound care and offloading. 4.Influenza A positive. Treatment completed with Tamiflu. Improved respiratory symptoms. 5.Essential hypertension, stable. 6.History of cerebrovascular accident, stable. 7.Diabetes mellitus type 2 with long-term use of insulin with hyperglycemia. Continue sliding scale insulin. Monitor blood glucose levels. 8.End-stage renal disease, on hemodialysis. Appreciate Nephrology input. 9.Acute cystitis without hematuria treatment completed. 10.PermCath removal by the patient, intentional, replaced. SA/TASHA Voice ID: [id number] Report ID: [id number]
[2018-06-22] MEDS: INSULIN GLARGINE 100 UNITS/ML SQ SCH (21:00)
[2018-06-22] MEDS: ATORVASTATIN 20 MG TAB PO SCH (22:00)
[2018-06-22] MEDS: TERAZOSIN HCL 1 MG CAP PO SCH (22:00)
[2018-06-23] MEDS: INSULIN -REGULAR HUMAN 50 UNIT/0.5 ML ML SQ SCH ×4 (07:30→20:44)
[2018-06-23] MEDS: POLYETHYL GLY 3350 17 GM/DOSE PO SCH (08:53)
[2018-06-23] MEDS: ASPIRIN 81 MG CHEWABLE TABLET PO SCH (08:54)
[2018-06-23] MEDS: HYDRALAZINE HCL 25 MG TABLET PO SCH ×3 (08:54→20:41)
[2018-06-23] MEDS: CLOPIDOGREL 75 MG TABLET PO SCH (08:54)
[2018-06-23] MEDS: FERROUS SULFATE 325 MG TAB PO SCH ×2 (08:54→20:41)
[2018-06-23] MEDS: CARVEDILOL 12.5 MG TAB PO SCH ×2 (08:54→20:41)
[2018-06-23] MEDS: SEVELAMER CARBONATE 800 MG TABLET PO SCH ×3 (08:54→17:17)
[2018-06-23] MEDS: DIVALPROEX DR 500MG TAB PO SCH ×2 (08:55→20:40)
[2018-06-23] MEDS: JUVEN PACKET PO SCH ×2 (08:55→20:41)
[2018-06-23] MEDS: MEDIHONEY 44 ML TOPICAL TUBE TOP SCH (08:55)
[2018-06-23] MEDS: NIFEDIPINE XL 60 MG TABLET PO SCH (09:00)
[2018-06-23] MEDS: EPOETIN ALFA 4000 UNIT/1 ML VIAL SQ SCH (10:10)
[2018-06-23] MEDS: VANCOMYCIN/NS 1 gm 1 GM/250 ML BAG IV SCH (11:09)
--- NOTE | 2018-06-23 13:06 | P.PN ---
Date of Service: 06/23/18 S: PATIENT IS IN DIALYSIS. WILL STOP BY LATER TODAY IF CALLED BACK TO HOSPITAL. O: CHART REVIEWED. NO PROBLEMS NOTED. A: FAMILY NOT AROUND. PLANS FOR DISCHARGE TO SNF DELAYED OVER WEEKEND. P: WILL CONTINUE NON-WEIGHT BEARING LEFT LOWER EXTREMITY FOR NOW.
--- NOTE | 2018-06-23 13:47 | PN ---
Date of Progress Note: 06/23/2018 History: The patient seen and examined. Chart reviewed and case discussed with RN. No acute events overnight. Medications: List reviewed. Physical Examination: Vital Signs: Temperature 97.8, heart rate 60, blood pressure 142/67, respirations 18, O2 93% on room air. General: Awake, alert, oriented x3, elderly female. CV: S1, S2. Regular rate and rhythm. Peripheral pulses present. Respiratory: Moving air well bilaterally. No wheezing. Gastrointestinal: Abdomen is soft, nontender, nondistended. Positive bowel sounds. Extremities: No clubbing, cyanosis, or edema. Neurologic: Nonfocal. Laboratory Data: Sodium 135, potassium 4.5, chloride 99, CO2 29, BUN 52, creatinine 1.88, glucose 98 , phosphorus 3.4. Wound cultures from the left ankle growing out MRSA. Assessment And Plan: A 68-year-old female with: 1.Acute toxic encephalopathy, resolving. 2.Left ankle fracture status post surgery complicated by infection, hardware removal at different fa cility, currently growing methicillin-resistant Staphylococcus aureus. Continue vancomycin with dial ysis. The patient will need to follow up with specialist in [place] for further revision or possible below-knee amputation. 3.Stage II decubitus ulcer, improving. Continue offloading and wound care. 4.Influenza A positive. Treatment completed with Tamiflu. Respiratory symptoms have improved. We will discontinue droplet precautions. 5.Essential hypertension, stable. 6.History of cerebrovascular accident, stable. 7.Diabetes mellitus type 2 with long-term use of insulin with hyperglycemia. Continue sliding scale insulin and Accu-Cheks. 8.End-stage renal disease, on hemodialysis. The patient to be dialyzed again today. 9.Acute cystitis without hematuria, treatment completed. 10.PermCath removal by patient, intentional, status post placement. 11.Deep vein thrombosis prophylaxis with Lovenox, renally-dosed. Plan: Will transfer to [facility] once accepted. /TASHA Voice ID: [id number] Report ID: [id number]
[2018-06-23] MEDS: ENOXAPARIN 30 MG/0.3 ML SQ SCH (17:00)
[2018-06-23] MEDS: guaiFENesin 100 MG/5 ML UCUP PO PRN (20:39)
[2018-06-23] MEDS: TERAZOSIN HCL 1 MG CAP PO SCH (20:40)
[2018-06-23] MEDS: ATORVASTATIN 20 MG TAB PO SCH (20:40)
[2018-06-23] MEDS: DIPHENHYDRAMINE 25 MG TAB/CAP PO PRN (20:42)
[2018-06-23] MEDS: INSULIN GLARGINE 100 UNITS/ML SQ SCH (20:42)
--- NOTE | 2018-06-24 01:16 | PN ---
Date of Progress Note: 06/23/2018 Chief Complaint: End-stage renal disease, on dialysis. The patient is scheduled to have dialysis to day. The patient has chronic wounds and osteomyelitis of the left ankle. She is undergoing treatmen t with antibiotics. The patient is on vancomycin. Review of Systems: Denies complaints. Physical Examination: Lungs: Clear to auscultation bilaterally. Heart: S1, S2. Abdomen: Soft, benign. Extremities: Dressing in place. Impression And Plan: 1.End-stage renal disease. Dialysis today will be done with ultrafiltration to control fluid overlo ad and provide metabolic clearance. 2.Hypertension. Monitor blood pressure during dialysis to prevent intradialytic hypotension. 3.Anemia in chronic kidney disease. Monitor hemoglobin level, adjust HEATHER. 4.Renal osteodystrophy. Continue renal diet and binders. 5.Osteomyelitis. Continue antibiotics. Monitor vancomycin trough level. WILLIE/TASHA Voice ID: [id number] Report ID: [id number]
[2018-06-24 04:21] LABS: Absolute Lymphocytes (CBC) 2.7 K/uL (0.7-4.9); Absolute Monocytes 1.1 K/uL (0.1-1.3); Absolute Neutrophil 5.1 K/uL (1.8-8.0); Basophils % 0.6 % (0-1.3); Eosinophils % 2.7 % (0-4.4); Hematocrit 27.5 % (36.0-45.0); Lymphocytes % 29.3 % (15.3-44.8); Monocytes % 11.8 % (3.3-12.3); RBC Red Blood Cell Count 3.02 M/uL (3.86-4.86)
[2018-06-24 04:43] LABS: Albumin 2.5 g/dL (3.4-5.0); Bilirubin Total 0.2 mg/dL (0.2-1.0); Protein, Total 7.2 g/dL (6.4-8.2)
[2018-06-24] MEDS: INSULIN -REGULAR HUMAN 50 UNIT/0.5 ML ML SQ SCH ×4 (07:30→22:12)
[2018-06-24] MEDS: SEVELAMER CARBONATE 800 MG TABLET PO SCH ×3 (09:14→17:20)
[2018-06-24] MEDS: DIVALPROEX DR 500MG TAB PO SCH ×2 (09:14→22:08)
[2018-06-24] MEDS: POLYETHYL GLY 3350 17 GM/DOSE PO SCH (09:14)
[2018-06-24] MEDS: FERROUS SULFATE 325 MG TAB PO SCH ×2 (09:14→22:09)
[2018-06-24] MEDS: HYDRALAZINE HCL 25 MG TABLET PO SCH ×3 (09:15→22:09)
[2018-06-24] MEDS: CLOPIDOGREL 75 MG TABLET PO SCH (09:15)
[2018-06-24] MEDS: CARVEDILOL 12.5 MG TAB PO SCH ×2 (09:15→22:08)
[2018-06-24] MEDS: NIFEDIPINE XL 60 MG TABLET PO SCH (09:15)
[2018-06-24] MEDS: ASPIRIN 81 MG CHEWABLE TABLET PO SCH (09:15)
[2018-06-24] MEDS: JUVEN PACKET PO SCH ×2 (09:16→22:09)
[2018-06-24] MEDS: MEDIHONEY 44 ML TOPICAL TUBE TOP SCH (09:17)
[2018-06-24] MEDS: ENOXAPARIN 30 MG/0.3 ML SQ SCH (17:20)
--- NOTE | 2018-06-24 17:31 | PN ---
Date of Progress Note: 06/24/2018 Subjective: The patient is seen and examined. Chart reviewed, and case discussed with RN. I was informed by charge nurse that the family has stated that the patient's primary care physician is Dr. Arias therefore attending will be switched over to his service. I have contacted Dr. Arias regarding this patient. Medications: List reviewed. Physical Examination: Vital Signs: Temperature 97, heart rate 67, blood pressure 147/67, respirations 18, O2 of 98% on room air. General: Awake, alert, oriented x3. Not in any acute distress. CV: S1 and S2. Peripheral pulses weak bilaterally. Respiratory: Moving air well bilaterally. No wheezing. Gastrointestinal: Abdomen is soft, nontender, nondistended. Positive bowel sounds. Extremities: No clubbing, cyanosis, or edema. Skin: Left ankle bandaged, some drainage from the site. Neurologic: Nonfocal. Laboratory Data: Sodium 135, potassium 4, chloride 99, CO2 of 25, BUN 58, creatinine 2.42, glucose 138, calcium 8.3. WBC is 9.1, H and H 9.1 and 27.5, platelets 285. Wound cultures from the left ankle growing MRSA. Blood cultures negative. Assessment: A 68-year-old female with: 1. Acute toxic encephalopathy. The patient's mental status has improved significantly. Seems to be back to baseline. No further hallucinations or episodes of confusion over the past approximately 48 hours. 2. Left ankle fracture, status post surgery, complicated by infection, hardware removal at different facility, currently growing methicillin-resistant Staphylococcus aureus. Plan is for vancomycin with dialysis for 4 to 6 weeks. She will need to follow up with her specialist in [place] for revision of the ankle fracture or possible [id number]-[id number] amputation. 3. Stage II decubitus ulcer, improving. We will continue with wound care and continue offloading. 4. Influenza A positive. Treatment completed with Tamiflu. No further respiratory symptoms. 5. Essential hypertension, stable. 6. History of cerebrovascular accident, stable. 7. Diabetes mellitus type 2 with long-term use of insulin with hyperglycemia. Continue Accu-Cheks and sliding scale insulin. 8. End-stage renal disease, on hemodialysis. We will continue dialysis as scheduled. Appreciate Nephrology input. 9. Acute cystitis without hematuria, treatment completed. 10. Intentional removal of PermCath by the patient, replaced by Dr. Sanderson. This is third episode of removing her dialysis catheter. 11. Deep venous thrombosis prophylaxis with Lovenox, renally-dosed. Plan: We will transfer service to Dr. Arias Family requesting PCP to take over. YEHUDA Voice ID: [id number] Report ID: [id number] SERGIO
[2018-06-24] MEDS: DIPHENHYDRAMINE 25 MG TAB/CAP PO PRN (22:08)
[2018-06-24] MEDS: TERAZOSIN HCL 1 MG CAP PO SCH (22:08)
[2018-06-24] MEDS: guaiFENesin 100 MG/5 ML UCUP PO PRN (22:09)
[2018-06-24] MEDS: ATORVASTATIN 20 MG TAB PO SCH (22:09)
[2018-06-24] MEDS: INSULIN GLARGINE 100 UNITS/ML SQ SCH (22:12)
--- NOTE | 2018-06-24 23:07 | P.PN ---
Date of Service: 06/24/18 S: PATIENT IN ROOM WITH FAMILY MEMBER. ABLE TO DISCUSS PROGNOSIS WITH LESS CONCERN OVER MISINFORMATION GOING THROUGH FAMILY PATIENT IS FREQUENTLY CONFUSED O: VSS, AFEBRILE, PAIN 0,0,0,0,0/10. HGB 9.1, WBC 9.1 N 56% A: EXPECT PATIENT WILL REMAIN NON-WT.BEARING LLE FOR AMBULATION AND TRANSFERS NONUNION MED. MALLEOLUS INDICATES INSTABILITY. ANKLE BOOT OR AIR CAST LIMITED BY NEED TO BANDAGE WHILE TREATING DRAINAGE. EXTENSIVE SMALL VESSEL ARTERIAL INSUFFICIENCY MAKES TREATMENT OF OSTEOMYELITIS LIKELY TO ONLY ACCOMPLISH SUPPRESSION. P: WILL CONTINUE NON-WEIGHT BEARING LEFT LOWER EXTREMITY. FAMILY MEMBER AND PATIENT AWARE THAT AMPUTATION MAY BECOME THE FINAL SOLUTION. FAMILY MEMBER WENT THROUGH 7-8 MONTHS WITH BEING TREATED FOR OSTEOMYELITIS, AND SUPPORTS CONSIDERATION FOR AMPUTATION. DISCUSSED HOW LEVEL OF AMPUTATION MAY BE INFLUENCED BY SMALL VESSEL ARTERIAL INSUFFICIENCY. PATIENT STILL WITH LAST RESORT MINDSET. WILL DISCUSS OPTIONS WITH DRS. BONILLA & MAYDA, THE VASCULAR SURGEON AND FOOT & ANKLE SPECIALIST.
--- NOTE | 2018-06-25 01:53 | PN ---
Date of Progress Note: 06/24/2018 Chief Complaint: End-stage renal disease, on dialysis. History Of Present Illness: The patient is scheduled to have dialysis tomorrow. The patient has his tory of chronic wounds and osteomyelitis of the left ankle. She is undergoing treatment with antibio tics and wound care. She is on vancomycin. Review of Systems: Denies fever, chills. Physical Examination: Lungs: Clear to auscultation bilaterally. Heart: S1, S2. Abdomen: Soft, benign. Extremities: Dressing in place. Impression And Plan: 1.End-stage renal disease. Dialysis will be done with ultrafiltration to control fluid overload and provide metabolic clearance. 2.Hypertension. Blood pressure is controlled. Monitor blood pressure during dialysis to prevent in tradialytic hypotension. 3.Anemia. Continue HEATHER. 4.Renal osteodystrophy. The patient tolerated binders. Continue renal diet and binders. 5.Osteomyelitis, on antibiotics. Continue current treatment. Monitor vancomycin toxicity panel. EB/MODL Voice ID: [id number] Report ID: [id number]
[2018-06-25] MEDS: INSULIN -REGULAR HUMAN 50 UNIT/0.5 ML ML SQ SCH ×4 (07:30→21:20)
[2018-06-25] MEDS: SEVELAMER CARBONATE 800 MG TABLET PO SCH ×3 (08:00→17:22)
[2018-06-25] MEDS: EPOETIN ALFA 4000 UNIT/1 ML VIAL SQ SCH (09:49)
[2018-06-25] MEDS: CLOPIDOGREL 75 MG TABLET PO SCH (13:19)
[2018-06-25] MEDS: FERROUS SULFATE 325 MG TAB PO SCH ×2 (13:19→21:19)
[2018-06-25] MEDS: HYDRALAZINE HCL 25 MG TABLET PO SCH ×3 (13:19→21:20)
[2018-06-25] MEDS: CARVEDILOL 12.5 MG TAB PO SCH ×2 (13:20→21:19)
[2018-06-25] MEDS: DIVALPROEX DR 500MG TAB PO SCH ×2 (13:20→21:19)
[2018-06-25] MEDS: NIFEDIPINE XL 60 MG TABLET PO SCH (13:20)
[2018-06-25] MEDS: ASPIRIN 81 MG CHEWABLE TABLET PO SCH (13:20)
[2018-06-25] MEDS: POLYETHYL GLY 3350 17 GM/DOSE PO SCH (13:21)
[2018-06-25] MEDS: JUVEN PACKET PO SCH ×2 (13:21→21:00)
[2018-06-25] MEDS: MEDIHONEY 44 ML TOPICAL TUBE TOP SCH (13:22)
[2018-06-25] MEDS: ENOXAPARIN 30 MG/0.3 ML SQ SCH (17:21)
--- NOTE | 2018-06-25 20:35 | PN ---
Subjective: The patient is lying in bed. Denies any headache, nausea, vomiting, chest pain, abdomin al pain, constipation, or diarrhea. Family is by the bedside. Objective: Vital Signs: Temperature 97.8, pulse 65, respirations 18, blood pressure 152/68. Lungs: Basal crackles. Heart: S1, S2. Regular. Abdomen: Soft, nontender. Bowel sounds present. Extremity: Left foot wound noted. Sacral wound noted. Laboratory Data: WBC 9.1, platelets are 285, hemoglobin 9.1. Chemistry shows sodium 135, potassium 4, chloride 99, bicarb 25, BUN 58, creatinine 2.4, glucose 138. MRSA wound infection in the foot and ankle area. Assessment And Plan: Left ankle methicillin-resistant Staphylococcus aureus infection. Sacral wound healing well. Continue antibiotic and wound care. We will follow the patient closely. NICK/TASHA Voice ID: [id number] Report ID: [id number]
[2018-06-25] MEDS: TERAZOSIN HCL 1 MG CAP PO SCH (21:19)
[2018-06-25] MEDS: ATORVASTATIN 20 MG TAB PO SCH (21:19)
[2018-06-25] MEDS: INSULIN GLARGINE 100 UNITS/ML SQ SCH (21:21)
[2018-06-25] MEDS: guaiFENesin 100 MG/5 ML UCUP PO PRN (23:55)
[2018-06-26] MEDS: DIPHENHYDRAMINE 25 MG TAB/CAP PO PRN ×2 (00:28→16:11)
--- NOTE | 2018-06-26 02:42 | PN ---
Date of Progress Note: 06/23/2018 Chief Complaint: End-stage renal disease, fluid overload. Dialysis was done with ultrafiltration. Legs edema somewhat improved. History Of Present Illness: The patient has multiple medical problems including history of hypertens ion. Blood pressure is improving. Blood pressure medications were adjusted. The patient has chronic wounds and osteomyelitis of the left ankle. She is undergoing antibiotic the rapy. Review of Systems: Denies fever, chills. Physical Examination: Lungs: Clear to auscultation bilaterally. Heart: S1, S2. Abdomen: Soft, benign. Extremities: Dressing in place. Impression And Plan: 1.End-stage renal disease. Dialysis will be done with ultrafiltration to control fluid overload to provide metabolic clearance. 2.Hypertension. Blood pressure is improving. Monitor blood pressure closely during dialysis. 3.Anemia of chronic kidney disease, continue erythropoiesis stimulating agent. 4.Renal osteodystrophy, continue renal diet and binders. 5.Osteomyelitis, on antibiotics. Monitor vancomycin toxicity panel. EB/MODL Voice ID: [id number] Report ID: [id number]
[2018-06-26] MEDS: INSULIN -REGULAR HUMAN 50 UNIT/0.5 ML ML SQ SCH ×4 (07:30→21:01)
[2018-06-26] MEDS: JUVEN PACKET PO SCH ×2 (10:50→21:09)
[2018-06-26] MEDS: NIFEDIPINE XL 60 MG TABLET PO SCH (10:56)
[2018-06-26] MEDS: HYDRALAZINE HCL 25 MG TABLET PO SCH ×3 (10:56→21:03)
[2018-06-26] MEDS: POLYETHYL GLY 3350 17 GM/DOSE PO SCH (10:56)
[2018-06-26] MEDS: ASPIRIN 81 MG CHEWABLE TABLET PO SCH (10:56)
[2018-06-26] MEDS: FERROUS SULFATE 325 MG TAB PO SCH ×2 (10:57→21:02)
[2018-06-26] MEDS: DIVALPROEX DR 500MG TAB PO SCH ×2 (10:57→21:08)
[2018-06-26] MEDS: CLOPIDOGREL 75 MG TABLET PO SCH (10:57)
[2018-06-26] MEDS: SEVELAMER CARBONATE 800 MG TABLET PO SCH ×3 (10:57→17:01)
[2018-06-26] MEDS: CARVEDILOL 12.5 MG TAB PO SCH ×2 (10:57→21:03)
[2018-06-26] MEDS: MEDIHONEY 44 ML TOPICAL TUBE TOP SCH (10:59)
[2018-06-26] MEDS: ENOXAPARIN 30 MG/0.3 ML SQ SCH (17:00)
[2018-06-26] MEDS: INSULIN GLARGINE 100 UNITS/ML SQ SCH (21:01)
[2018-06-26] MEDS: TERAZOSIN HCL 1 MG CAP PO SCH (21:02)
[2018-06-26] MEDS: ATORVASTATIN 20 MG TAB PO SCH (21:02)
--- NOTE | 2018-06-26 22:39 | PN ---
The patient is afebrile and she does not have any symptoms other than local pain. I reviewed the camille rt and progress note of Dr. Contreras. I spoke to the charge nurse. It looks like right know the situa tion is finding a way of placing her in a retirement, and social service involved with this process . Meanwhile, she will be continued on the same medical management. BENNETT/TASHA Voice ID: [id number] Report ID: [id number]
--- NOTE | 2018-06-26 22:47 | PN ---
Date of Progress Note: 06/26/2018 Chief Complaint: End-stage renal disease, on dialysis. Fluid overload. Subjective: Legs edema is improving. The patient received dialysis with ultrafiltration yesterday. The patient has multiple medical problems including history of hypertension. Blood pressure control is somewhat improving. Medications were adjusted. The patient has osteomyelitis of the left ankle and she is undergoing treatment with antibiotics. Review of Systems: Denies fever, chills. Physical Examination: Lungs: Clear to auscultation bilaterally. Heart: S1, S2. Abdomen: Soft, benign. Extremities: Slight edema. Impression And Plan: 1.End-stage renal disease. Dialysis will be done tomorrow with ultrafiltration. Continue low-sodiu m diet, p.o. fluid restriction to control volemia. 2.Hypertension. Continue blood pressure medication and adjust as needed for the target systolic blo od pressure 120-130. 3.Anemia of chronic kidney disease. Continue HEATHER. 4.Renal osteodystrophy. Continue renal diet and binders. 5.Osteomyelitis, on antibiotics. Monitor vancomycin toxicity panel. EB/MODL Voice ID: [id number] Report ID: [id number]
[2018-06-27 05:01] LABS: HBsAG Nonreactive (Nonreactive)
[2018-06-27 06:34] LABS: Potassium 4.8 mmol/L (3.5-5.1)
[2018-06-27] MEDS: INSULIN -REGULAR HUMAN 50 UNIT/0.5 ML ML SQ SCH ×4 (07:30→22:55)
[2018-06-27] MEDS: JUVEN PACKET PO SCH ×2 (09:00→22:54)
[2018-06-27] MEDS: MEDIHONEY 44 ML TOPICAL TUBE TOP SCH (09:00)
[2018-06-27] MEDS: INSULIN GLARGINE 100 UNITS/ML SQ SCH ×2 (10:49→22:52)
[2018-06-27] MEDS: CARVEDILOL 12.5 MG TAB PO SCH ×2 (10:50→22:54)
[2018-06-27] MEDS: ASPIRIN 81 MG CHEWABLE TABLET PO SCH (10:50)
[2018-06-27] MEDS: SEVELAMER CARBONATE 800 MG TABLET PO SCH ×3 (10:50→16:48)
[2018-06-27] MEDS: NIFEDIPINE XL 60 MG TABLET PO SCH (10:50)
[2018-06-27] MEDS: FERROUS SULFATE 325 MG TAB PO SCH ×2 (10:50→22:53)
[2018-06-27] MEDS: CLOPIDOGREL 75 MG TABLET PO SCH (10:50)
[2018-06-27] MEDS: DIVALPROEX DR 500MG TAB PO SCH ×2 (10:50→22:53)
[2018-06-27] MEDS: POLYETHYL GLY 3350 17 GM/DOSE PO SCH (10:51)
[2018-06-27] MEDS: HYDRALAZINE HCL 25 MG TABLET PO SCH ×3 (10:55→22:53)
[2018-06-27] MEDS: EPOETIN ALFA 4000 UNIT/1 ML VIAL SQ SCH (14:10)
[2018-06-27] MEDS: ENOXAPARIN 30 MG/0.3 ML SQ SCH (16:48)
--- NOTE | 2018-06-27 17:01 | PN ---
Subjective: The patient lying in bed, not in any acute distress. Denies any headache, nausea, vomit ing, chest pain, abdominal pain, constipation, or diarrhea. Feels waiting on lunch right now. Objective: Vital signs: Temperature 99, pulse 67, respirations 18, blood pressure 122/57. Lungs: Clear to auscultation. Heart: S1 and S2, regular. Abdomen: Soft, nontender. Bowel sounds present. Extremities: No edema. Laboratory Data: Sodium 134, potassium 4.8, chloride 98, bicarb 25, BUN 98, creatinine 3.9, glucose is 142. Assessment And Plan: Left ankle osteomyelitis and wounds are healing slowly. Coccyx wound is healin g well. Continue current treatment. We will follow the patient as needed. NICK/TASHA Voice ID: [id number] Report ID: [id number]
--- NOTE | 2018-06-27 17:51 | PN ---
Date of Progress Note: 06/27/2018 History: The patient was admitted with altered mental status, found to have osteomyelitis. The lauri ent on antibiotic. Physical Examination: Vital Signs: When I saw the patient, blood pressure of 122/57, pulse of 67, afebrile. Chest: Clear to auscultation. Heart: S1, S2. Systolic murmur. Abdomen: Soft. Nontender. Extremity: Trace edema. Dressing on the foot. Laboratory Data: WBC 9.1, H and H 9.1/27.5, platelets 258. Sodium 134, potassium 4.8, bicarb 25, BU N 98, creatinine 3.9, calcium 8.6. Current Medications: The patient on its include: 1.Aspirin. 2.Vancomycin. 3.Plavix. 4.Epogen. 5.Heparin. 6.Carvedilol 12.5 b.i.d. 7.Clonidine 0.1 p.r.n. 8.Hydralazine 50 t.i.d. 9.Nifedipine 60. 10.Terazosin. 11.Januvia. Assessment And Plan: 1.End-stage renal disease with marginal hyperkalemia, but no acidosis. We will continue the patient on dialysis. The patient is going to be dialyzed on low-potassium bath. 2.Hypertension, controlled, optimal. I am going to go ahead and decrease hydralazine to 25 mg to av oid low blood pressure. 3.Anemia of chronic kidney disease. Continue HEATHER. 4.Osteomyelitis. Continue Vancomycin. Dose is going to be adjusted to 1250 and we will follow up t he patient. FIFI Voice ID: [id number] Report ID: [id number]
--- NOTE | 2018-06-27 20:35 | P.PN ---
Date of Service: 06/27/18 S: PATIENT ALONE IN ROOM BEING TOLD BY NURSE THAT SHE WAS JUST YELLING. PATIENT APOLOGIZED IF UNAWARE AND ASKED FOR A SANDWICH, NOW!. O: VSS, AFEBRILE, PAIN 0,0,0,0,0/10. UNWRAPPED BANDAGE FOR INSPECTION. MEDIAL WOUNDS LOOK TO BE CLOSING SLOWLY, LATERAL WOUNDS ALMOST CLOSED. NO ERYTHEMA AND SCANT DRAINAGE. REWRAPPED BANDAGE IT WAS. A: DAUGHTER TREVOR HAD ASKED FOR PHONE CONFERENCE. WITH MOTHER'S BLESSING TO DISCUSS HER MEDICAL CONDITION, i CALLED AND WE HAD A NICE CONVERSATION ABOUT THE POSSIBILITY OF AMPUTATION IF INFECTION FAILS TO BE ERADICATED. A HIGHER RISK BECAUSE OF ARTERIAL SMALL VESSEL DISEASE AND DIABETES. ASSURED DAUGHTER THAT THERE ARE NO IMMEDIATE PLANS AND WE REMAIN HOPEFUL THAT SURGERY WILL NOT BE NECESSARY. MRS. BEAVERS AT PRESENT INDICATES SHE HAS NO PAIN, NO REASON TO CONSIDER SUCH AN OPTION, BUT SHE HAS FREQUENTLY BEEN TOLD THAT IT COULD HAPPEN. P: RECOMMEND CONTINUED NON-WEIGHT BEARING LEFT LOWER EXTREMITY.
[2018-06-27] MEDS: TERAZOSIN HCL 1 MG CAP PO SCH (22:52)
[2018-06-27] MEDS: guaiFENesin 100 MG/5 ML UCUP PO PRN (22:53)
[2018-06-27] MEDS: ATORVASTATIN 20 MG TAB PO SCH (22:53)
[2018-06-27] MEDS: DIPHENHYDRAMINE 25 MG TAB/CAP PO PRN (22:56)
--- NOTE | 2018-06-28 01:38 | PN ---
The patient basically is stable and having dialysis treatments as well as supportive care. Still the issue seems to be assisted placement. The patient will be continued on the same treatment, pend ing social service recommendations. BENNETT/TASHA Voice ID: [id number] Report ID: [id number]
[2018-06-28] MEDS: INSULIN -REGULAR HUMAN 50 UNIT/0.5 ML ML SQ SCH ×4 (07:30→22:11)
[2018-06-28] MEDS: INSULIN GLARGINE 100 UNITS/ML SQ SCH ×2 (09:00→22:10)
[2018-06-28] MEDS: JUVEN PACKET PO SCH ×2 (09:00→22:12)
[2018-06-28] MEDS: MEDIHONEY 44 ML TOPICAL TUBE TOP SCH (09:00)
[2018-06-28] MEDS: POLYETHYL GLY 3350 17 GM/DOSE PO SCH (09:01)
[2018-06-28] MEDS: HYDRALAZINE HCL 25 MG TABLET PO SCH ×3 (09:02→22:10)
[2018-06-28] MEDS: SEVELAMER CARBONATE 800 MG TABLET PO SCH ×3 (09:02→17:18)
[2018-06-28] MEDS: CARVEDILOL 12.5 MG TAB PO SCH ×2 (09:02→22:11)
[2018-06-28] MEDS: DIVALPROEX DR 500MG TAB PO SCH ×2 (09:02→22:09)
[2018-06-28] MEDS: FERROUS SULFATE 325 MG TAB PO SCH ×2 (09:02→22:10)
[2018-06-28] MEDS: ASPIRIN 81 MG CHEWABLE TABLET PO SCH (09:03)
[2018-06-28] MEDS: NIFEDIPINE XL 60 MG TABLET PO SCH (09:03)
[2018-06-28] MEDS: CLOPIDOGREL 75 MG TABLET PO SCH (09:03)
[2018-06-28] MEDS: DIPHENHYDRAMINE 25 MG TAB/CAP PO PRN ×2 (09:03→23:40)
[2018-06-28] MEDS: ENOXAPARIN 30 MG/0.3 ML SQ SCH (17:18)
--- NOTE | 2018-06-28 19:20 | PN ---
Date of Progress Note: 06/28/2018 Subjective: The patient is doing well status post dialysis yesterday, tolerated the dialysis very we ll, managed to remove 2800. Physical Examination: Vital Signs: Blood pressure 125/58, pulse of 63, afebrile. Chest: Clear to auscultation. Heart: S1, S2. Systolic murmur. Abdomen: Soft, nontender. Extremity: Trace edema. Laboratory Data: H and H 9.1/27.5. Sodium 134, potassium 4.8, bicarb 25, BUN 98, creatinine 3.9, ca lcium 8.5. Current Medications: The patient on, its include, 1.Aspirin. 2.Vancomycin. 3.Plavix. 4.Epogen. 5.Atorvastatin. 6.Clonidine. 7.Hydralazine 50 t.i.d. 8.Renvela. Assessment And Plan: 1.End-stage renal disease. We will continue the patient on dialysis Monday, Monday, and Monday. 2.Secondary hyperparathyroidism, continue Renvela. 3.Anemia of chronic kidney disease. Continue Epogen. 4.Foot infection, osteomyelitis. Continue current antibiotic. We will follow up with the primary. TRISHA/TASHA Voice ID: [id number] Report ID: [id number]
[2018-06-28] MEDS: TERAZOSIN HCL 1 MG CAP PO SCH (22:09)
[2018-06-28] MEDS: ATORVASTATIN 20 MG TAB PO SCH (22:10)
[2018-06-29 05:30] LABS: Albumin 2.7 g/dL (3.4-5.0); Phosphorus 4.7 mg/dL (2.5-4.9); Potassium 4.6 mmol/L (3.5-5.1)
[2018-06-29] MEDS: INSULIN -REGULAR HUMAN 50 UNIT/0.5 ML ML SQ SCH ×4 (07:30→22:02)
[2018-06-29] MEDS: SEVELAMER CARBONATE 800 MG TABLET PO SCH ×3 (08:00→17:00)
[2018-06-29] MEDS: CLOPIDOGREL 75 MG TABLET PO SCH (09:00)
[2018-06-29] MEDS: MEDIHONEY 44 ML TOPICAL TUBE TOP SCH (09:00)
[2018-06-29] MEDS: POLYETHYL GLY 3350 17 GM/DOSE PO SCH (09:00)
[2018-06-29] MEDS: JUVEN PACKET PO SCH ×2 (09:00→22:02)
[2018-06-29] MEDS: CARVEDILOL 12.5 MG TAB PO SCH ×2 (09:00→22:01)
[2018-06-29] MEDS: NIFEDIPINE XL 60 MG TABLET PO SCH (09:00)
[2018-06-29] MEDS: HYDRALAZINE HCL 25 MG TABLET PO SCH ×3 (09:00→22:02)
[2018-06-29] MEDS: FERROUS SULFATE 325 MG TAB PO SCH ×2 (09:00→22:02)
[2018-06-29] MEDS: DIVALPROEX DR 500MG TAB PO SCH ×2 (09:00→22:02)
[2018-06-29] MEDS: ASPIRIN 81 MG CHEWABLE TABLET PO SCH (09:00)
[2018-06-29] MEDS: INSULIN GLARGINE 100 UNITS/ML SQ SCH ×2 (09:00→22:03)
--- NOTE | 2018-06-29 10:52 | P.PN ---
Subjective Date of Service: 06/29/18 Chief Complaint: Chronic wounds and osteomyelitis left ankle Subjective: No new changes ESRD pt , recent leg surgery, admitted for AMS and hypoglycemia BP controlled HD MWF monitor vanco level cleared for discharge from nephrology point of view Physical Examination - Vital Signs Temperature: 98.4 F Blood Pressure: 124/58 Pulse: 66 Respirations: 20 Pulse Ox (%): 100 - Physical Exam General: Alert, In no apparent distress HEENT: Atraumatic Neck: Supple, Without JVD or thyroid abnormality Respiratory: Clear to auscultation bilaterally, Normal air movement Cardiovascular: No edema, Regular rate/rhythm, Normal S1 S2, Abnormal S3 Assessment And Plan - Current Problems (Diagnosis) (1) Influenza A Onset Date: 06/15/18 Current Visit: Yes Status: Acute (2) Stage II pressure ulcer of buttock Onset Date: 06/15/18 Current Visit: Yes Status: Acute (3) ESRD (end stage renal disease) on dialysis Onset Date: 06/15/18 Current Visit: Yes Status: Chronic - Plan ESRD on HD MWF via Rt permcath will cont MWF renal dose meds monitor Vanco level Anemia On HEATHER ferritn >1000 B12 and folate ok 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
[2018-06-29] MEDS: ENOXAPARIN 30 MG/0.3 ML SQ SCH (17:03)
[2018-06-29] MEDS: EPOETIN ALFA 4000 UNIT/1 ML VIAL SQ SCH (20:09)
[2018-06-29] MEDS ORDERED: NA CHLORIDE 0.9% 250 ML ONE (20:23)
[2018-06-29] MEDS: VANCOMYCIN/NS 1 gm 1 GM/250 ML BAG IV SCH (20:27)
[2018-06-29] MEDS ORDERED: VANCOMYCIN 1 GM/VIAL ONE (20:28)
[2018-06-29] MEDS: TERAZOSIN HCL 1 MG CAP PO SCH (22:00)
[2018-06-29] MEDS: DIPHENHYDRAMINE 25 MG TAB/CAP PO PRN (22:01)
[2018-06-29] MEDS: ATORVASTATIN 20 MG TAB PO SCH (22:01)
[2018-06-29] MEDS: guaiFENesin 100 MG/5 ML UCUP PO PRN (22:01)
--- NOTE | 2018-06-30 03:30 | PN ---
The patient is stable and doing well. I spoke to her daughter. Looks like there is confusion about communications. Either way, I explained to the daughter about her mother's condition. The patient i s afebrile and tolerating the current management. BENNETT/TASHA Voice ID: [id number] Report ID: [id number]
[2018-06-30 05:27] LABS: Albumin 2.7 g/dL (3.4-5.0); Magnesium 2.2 mg/dL (1.8-2.4); Phosphorus 3.3 mg/dL (2.5-4.9); Potassium 4.3 mmol/L (3.5-5.1)
[2018-06-30] MEDS: SEVELAMER CARBONATE 800 MG TABLET PO SCH ×3 (08:25→17:42)
[2018-06-30] MEDS: CARVEDILOL 12.5 MG TAB PO SCH ×2 (08:25→20:44)
[2018-06-30] MEDS: DIVALPROEX DR 500MG TAB PO SCH ×2 (08:26→20:45)
[2018-06-30] MEDS: HYDRALAZINE HCL 25 MG TABLET PO SCH ×3 (08:26→20:45)
[2018-06-30] MEDS: FERROUS SULFATE 325 MG TAB PO SCH ×2 (08:27→20:45)
[2018-06-30] MEDS: NIFEDIPINE XL 60 MG TABLET PO SCH (08:27)
[2018-06-30] MEDS: CLOPIDOGREL 75 MG TABLET PO SCH (08:27)
[2018-06-30] MEDS: POLYETHYL GLY 3350 17 GM/DOSE PO SCH (08:27)
[2018-06-30] MEDS: ASPIRIN 81 MG CHEWABLE TABLET PO SCH (08:27)
[2018-06-30] MEDS: INSULIN -REGULAR HUMAN 50 UNIT/0.5 ML ML SQ SCH ×4 (08:27→20:46)
[2018-06-30] MEDS: INSULIN GLARGINE 100 UNITS/ML SQ SCH ×2 (08:28→20:45)
[2018-06-30] MEDS: JUVEN PACKET PO SCH ×2 (08:29→20:46)
[2018-06-30] MEDS: MEDIHONEY 44 ML TOPICAL TUBE TOP SCH (08:30)
[2018-06-30] MEDS: ENOXAPARIN 30 MG/0.3 ML SQ SCH (18:23)
--- NOTE | 2018-06-30 18:43 | PN ---
Date of Progress Note: 06/30/2018 Subjective: No fever. The patient is status post dialysis yesterday, tolerated the dialysis, manage d to remove 2500. Physical Examination: Vital Signs: Blood pressure 128/59, pulse of 63. Chest: Clear to auscultation. Heart: S1, S2. Regular. Abdomen: Soft, nontender. Extremities: Dressing on the foot. Laboratory Data: H and H 9.1/27.5. Sodium 136, potassium 4.3, bicarb 27, BUN 65, creatinine 2.2, ca lcium 8.4, phosphorus 3.3, magnesium 2.2. Current Medications: The patient on its include: 1.Aspirin. 2.Vancomycin. 3.Lovenox. 4.Epogen. 5.Carvedilol 12.5. 6.Clonidine as needed. 7.Hydralazine 50 t.i.d. 8.Nifedipine 60. 9.Renvela 1 tablet with each meal. Assessment And Plan: 1.End-stage renal disease. We will continue the patient on dialysis Monday, Monday, and Monday. 2.Secondary hyperparathyroidism. Continue binder. 3.Anemia. Continue Epogen. 4.Osteomyelitis. I am going to go ahead and increase the vancomycin to 1.5 g post each dialysis and we will follow up. FIFI Voice ID: [id number] Report ID: [id number]
[2018-06-30] MEDS: ATORVASTATIN 20 MG TAB PO SCH (20:44)
[2018-06-30] MEDS: TERAZOSIN HCL 1 MG CAP PO SCH (20:45)
[2018-07-01] MEDS: DIPHENHYDRAMINE 25 MG TAB/CAP PO PRN ×2 (00:12→21:36)
[2018-07-01 05:08] LABS: Albumin 2.6 g/dL (3.4-5.0); Phosphorus 4.5 mg/dL (2.5-4.9); Potassium 4.8 mmol/L (3.5-5.1)
[2018-07-01] MEDS: INSULIN -REGULAR HUMAN 50 UNIT/0.5 ML ML SQ SCH ×4 (07:30→21:01)
[2018-07-01] MEDS: INSULIN GLARGINE 100 UNITS/ML SQ SCH ×2 (09:00→21:00)
[2018-07-01] MEDS: JUVEN PACKET PO SCH ×2 (09:00→20:39)
[2018-07-01] MEDS: MEDIHONEY 44 ML TOPICAL TUBE TOP SCH (09:00)
[2018-07-01] MEDS: HYDRALAZINE HCL 25 MG TABLET PO SCH ×3 (09:03→20:38)
[2018-07-01] MEDS: POLYETHYL GLY 3350 17 GM/DOSE PO SCH (09:03)
[2018-07-01] MEDS: NIFEDIPINE XL 60 MG TABLET PO SCH (09:04)
[2018-07-01] MEDS: SEVELAMER CARBONATE 800 MG TABLET PO SCH ×3 (09:04→16:44)
[2018-07-01] MEDS: FERROUS SULFATE 325 MG TAB PO SCH ×2 (09:04→20:38)
[2018-07-01] MEDS: DIVALPROEX DR 500MG TAB PO SCH ×2 (09:04→20:39)
[2018-07-01] MEDS: CLOPIDOGREL 75 MG TABLET PO SCH (09:04)
[2018-07-01] MEDS: ASPIRIN 81 MG CHEWABLE TABLET PO SCH (09:04)
[2018-07-01] MEDS: CARVEDILOL 12.5 MG TAB PO SCH ×2 (09:05→20:38)
--- NOTE | 2018-07-01 14:29 | PN ---
Date of Progress Note: 07/01/2018 Subjective: The patient is still waiting for placement. Physical Examination: Vital Signs: When I saw the patient, blood pressure 134/64, pulse of 67, afebrile. Chest: Clear to auscultation. Heart: S1, S2. Systolic murmur. Abdomen: Soft and nontender. Extremities: No edema. Laboratory Data: H and H 9.1/27.5. Sodium 134, potassium 4.8, bicarb 25, BUN 98, creatinine 3, calc ium 8.4, phosphorus 4.5. Current Medications: The patient on its include vancomycin 1.5 g after each dialysis, aspirin, Loven ox, Plavix, Epogen 5000 after each dialysis, atorvastatin, clonidine, carvedilol, nifedipine 60 daily , trazodone, Renvela 1 tablet with each meal. Assessment And Plan: 1.End-stage renal disease, normal volume with marginal hyponatremia. I am going to be dialyzing the patient on high sodium bath and we will follow up the patient. 2.Hypertension, controlled, optimal. Continue current medication. We will decrease the nifedipine to 30 mg. 3.Disproportion BUN creatinine secondary to catabolic. I am going to go ahead and increase her time to 3.5 hour, increase the blood flow to 400 and we will follow up. 4.Hyperkalemia. The patient is going to be dialyzed on low-potassium bath. 5.Anemia of chronic kidney disease. Increase Epogen to 5000. 6.Osteomyelitis. Continue current antibiotic, vancomycin has been adjusted yesterday. 7.Deconditioning. Waiting for placement. FIFI Voice ID: [id number] Report ID: [id number]
[2018-07-01] MEDS: ENOXAPARIN 30 MG/0.3 ML SQ SCH (16:44)
--- NOTE | 2018-07-01 20:17 | PN ---
Patient is doing well and her temperature is normal. Her dialysis going smoothly. I spoke to the sade nurse again. Issue seems to be family getting the residential agree to the terms. Social Work er is going to coordinate that tomorrow. BENNETT/TASHA Voice ID: [id number] Report ID: [id number]
[2018-07-01] MEDS: TERAZOSIN HCL 1 MG CAP PO SCH (20:38)
[2018-07-01] MEDS: ATORVASTATIN 20 MG TAB PO SCH (20:39)
[2018-07-01] MEDS: guaiFENesin 100 MG/5 ML UCUP PO PRN (23:14)
[2018-07-02] MEDS: DIPHENHYDRAMINE 25 MG TAB/CAP PO PRN ×2 (02:46→23:15)
[2018-07-02 06:25] LABS: Albumin 2.5 g/dL (3.4-5.0); Phosphorus 5.5 mg/dL (2.5-4.9); Potassium 5.4 mmol/L (3.5-5.1)
[2018-07-02] MEDS: INSULIN -REGULAR HUMAN 50 UNIT/0.5 ML ML SQ SCH ×4 (07:30→20:27)
[2018-07-02] MEDS: SEVELAMER CARBONATE 800 MG TABLET PO SCH ×3 (08:46→17:30)
[2018-07-02] MEDS: POLYETHYL GLY 3350 17 GM/DOSE PO SCH (09:00)
[2018-07-02] MEDS: NIFEDIPINE XL 30 MG TABLET PO SCH ×2 (09:00→18:13)
[2018-07-02] MEDS: HYDRALAZINE HCL 25 MG TABLET PO SCH ×3 (09:00→20:20)
[2018-07-02] MEDS: CARVEDILOL 12.5 MG TAB PO SCH ×2 (09:00→20:20)
[2018-07-02] MEDS: MEDIHONEY 44 ML TOPICAL TUBE TOP SCH (09:52)
[2018-07-02] MEDS: DIVALPROEX DR 500MG TAB PO SCH ×2 (09:57→20:19)
[2018-07-02] MEDS: INSULIN GLARGINE 100 UNITS/ML SQ SCH ×2 (09:57→20:28)
[2018-07-02] MEDS: VANCOMYCIN 1.5 GM in NA CHLORIDE 0.9% 500 ML IVPB SCH (10:09)
[2018-07-02] MEDS: EPOETIN ALFA 10,000 UNIT/ML VIAL SQ SCH (10:14)
[2018-07-02] MEDS: JUVEN PACKET PO SCH ×2 (13:10→20:27)
[2018-07-02] MEDS: CLOPIDOGREL 75 MG TABLET PO SCH (13:11)
[2018-07-02] MEDS: FERROUS SULFATE 325 MG TAB PO SCH ×2 (13:11→20:18)
[2018-07-02] MEDS: ASPIRIN 81 MG CHEWABLE TABLET PO SCH (13:11)
[2018-07-02] MEDS: ENOXAPARIN 30 MG/0.3 ML SQ SCH (17:30)
[2018-07-02] MEDS: TERAZOSIN HCL 1 MG CAP PO SCH (20:19)
[2018-07-02] MEDS: ATORVASTATIN 20 MG TAB PO SCH (20:19)
[2018-07-03] MEDS: guaiFENesin 100 MG/5 ML UCUP PO PRN ×2 (01:01→22:03)
--- NOTE | 2018-07-03 04:30 | PN ---
Date of Progress Note: 07/02/2018 Chief Complaint: End-stage renal disease, fluid overload. The patient is undergoing dialysis today. Ultrafiltration was obtained. The patient is tolerating d ialysis. Review of Systems: Denies complaints. Physical Examination: Lungs: Clear to auscultation bilaterally. Heart: S1, S2. Abdomen: Soft, benign. Extremities: Dressing is placed over the foot. Vital Signs: Blood pressure 128/79, heart rate 63. Impression And Plan: 1.End-stage renal disease. The patient is tolerating dialysis with ultrafiltration. Continue treat ment on Monday, Monday and Monday. 2.Secondary hyperparathyroidism. Continue binders. Monitor calcium and phosphorus levels. 3.Osteomyelitis, on antibiotics. The patient is on vancomycin. Continue vancomycin and follow up o n the trough level. 4.Hypertension, controlled. The patient is on multiple blood pressure medication. 5.Renal osteodystrophy. The patient is on Renvela. Adjust Renvela according to phosphorus level. EB/MODL Voice ID: [id number] Report ID: [id number]
[2018-07-03 07:28] LABS: Albumin 2.6 g/dL (3.4-5.0); Phosphorus 3.8 mg/dL (2.5-4.9); Potassium 4.4 mmol/L (3.5-5.1)
[2018-07-03] MEDS: INSULIN -REGULAR HUMAN 50 UNIT/0.5 ML ML SQ SCH ×4 (07:30→21:23)
[2018-07-03] MEDS: MEDIHONEY 44 ML TOPICAL TUBE TOP SCH (09:00)
[2018-07-03] MEDS: POLYETHYL GLY 3350 17 GM/DOSE PO SCH (09:23)
[2018-07-03] MEDS: INSULIN GLARGINE 100 UNITS/ML SQ SCH ×2 (09:23→21:26)
[2018-07-03] MEDS: SEVELAMER CARBONATE 800 MG TABLET PO SCH ×3 (09:24→16:32)
[2018-07-03] MEDS: ASPIRIN 81 MG CHEWABLE TABLET PO SCH (09:24)
[2018-07-03] MEDS: NIFEDIPINE XL 30 MG TABLET PO SCH (09:24)
[2018-07-03] MEDS: CLOPIDOGREL 75 MG TABLET PO SCH (09:24)
[2018-07-03] MEDS: HYDRALAZINE HCL 25 MG TABLET PO SCH ×3 (09:24→21:21)
[2018-07-03] MEDS: FERROUS SULFATE 325 MG TAB PO SCH ×2 (09:24→21:21)
[2018-07-03] MEDS: DIVALPROEX DR 500MG TAB PO SCH ×2 (09:24→21:19)
[2018-07-03] MEDS: JUVEN PACKET PO SCH ×2 (09:24→21:34)
[2018-07-03] MEDS: CARVEDILOL 12.5 MG TAB PO SCH ×2 (09:25→21:20)
--- NOTE | 2018-07-03 16:19 | PN ---
Date of Progress Note: 07/03/2018 Subjective: The patient has no event. Physical Examination: Vital Signs: Blood pressure 151/67, pulse of 63. Chest: Clear to auscultation. Heart: S1 and S2, regular. Abdomen: Soft and nontender. Extremities: No edema. Dressing on the foot. Laboratory Data: H and H 9.1/27.5. Sodium 137, potassium 4.4, bicarb 26, BUN 79, creatinine 2.8, ca lcium 8.5, phosphorus 3.8. Current Medications: The patient on its include: 1.Aspirin. 2.Vancomycin. 3.Epogen. 4.Plavix. 5.Lovenox. 6.Hydralazine 50 t.i.d. 7.Carvedilol 25. 8.Nifedipine. Assessment And Plan: 1.End-stage renal disease. We will maintain the patient on dialysis Monday, Monday, and Monday. We will schedule the patient for dialysis tomorrow and we will follow up. 2.Hyponatremia, resolved. 3.Anemia of chronic kidney disease. Continue Epogen. 4.Osteomyelitis. Continue current antibiotic. We will follow up with the primary. 5.Diabetes as by primary. TRISHA/TASHA Voice ID: [id number] Report ID: [id number]
[2018-07-03] MEDS: ENOXAPARIN 30 MG/0.3 ML SQ SCH (16:32)
--- NOTE | 2018-07-03 17:37 | PN ---
Subjective: The patient is sitting in wheelchair. Denies any headache, nausea, vomiting, chest pain , abdominal pain, constipation, or diarrhea. Objective: Vital Signs: Temperature 97.8, pulse 67, respirations 16, blood pressure 148/66. Lungs: Clear to auscultation. Heart: S1, S2. Regular. Abdomen: Soft, nontender. Bowel sounds present. Extremities: Trace edema. Laboratory Data: WBC 9.1, hemoglobin 9.1, platelets 285. Chemistry shows sodium 137, potassium 4.4, chloride 102, bicarb 26, BUN 79, creatinine 2.8, glucose is 100. Assessment And Plan: Left foot osteo. Wounds are healing well. Coccyx wound is healing well. End- stage renal disease. Continue supportive care and wound care. We will follow the patient as needed. NF/MODL Voice ID: [id number] Report ID: [id number]
[2018-07-03] MEDS: TERAZOSIN HCL 1 MG CAP PO SCH (21:21)
[2018-07-03] MEDS: ATORVASTATIN 20 MG TAB PO SCH (21:21)
[2018-07-03] MEDS: DIPHENHYDRAMINE 25 MG TAB/CAP PO PRN (22:03)
--- NOTE | 2018-07-04 03:23 | PN ---
The patient is doing well. She is sitting in the bedside chair. The transfer situation has not healy ged. I am not sure what else needs to be done. From my point of view, there is already social worke r on the case, and there has been ongoing issues with the [facility], the patient's family. BENNETT/TASHA Voice ID: [id number] Report ID: [id number]
[2018-07-04] MEDS: INSULIN -REGULAR HUMAN 50 UNIT/0.5 ML ML SQ SCH ×4 (07:30→21:31)
[2018-07-04] MEDS: SEVELAMER CARBONATE 800 MG TABLET PO SCH ×3 (08:00→16:59)
[2018-07-04] MEDS: MEDIHONEY 44 ML TOPICAL TUBE TOP SCH (09:00)
[2018-07-04] MEDS: HYDRALAZINE HCL 25 MG TABLET PO SCH ×3 (09:00→20:57)
[2018-07-04] MEDS: INSULIN GLARGINE 100 UNITS/ML SQ SCH ×2 (09:00→21:32)
[2018-07-04] MEDS: EPOETIN ALFA 10,000 UNIT/ML VIAL SQ SCH (10:14)
[2018-07-04] MEDS: VANCOMYCIN 1.5 GM in NA CHLORIDE 0.9% 500 ML IVPB SCH (10:58)
[2018-07-04] MEDS: POLYETHYL GLY 3350 17 GM/DOSE PO SCH (13:36)
[2018-07-04] MEDS: JUVEN PACKET PO SCH ×2 (13:36→20:55)
[2018-07-04] MEDS: FERROUS SULFATE 325 MG TAB PO SCH ×2 (13:36→20:56)
[2018-07-04] MEDS: DIVALPROEX DR 500MG TAB PO SCH ×2 (13:36→20:57)
[2018-07-04] MEDS: CLOPIDOGREL 75 MG TABLET PO SCH (13:36)
[2018-07-04] MEDS: CARVEDILOL 12.5 MG TAB PO SCH ×2 (13:37→20:56)
[2018-07-04] MEDS: ASPIRIN 81 MG CHEWABLE TABLET PO SCH (13:37)
[2018-07-04] MEDS: NIFEDIPINE XL 30 MG TABLET PO SCH (13:38)
--- NOTE | 2018-07-04 16:02 | PN ---
Date of Progress Note: 07/04/2018 Subjective: The patient has no event, no pain. The patient seen on dialysis, doing well. Physical Examination: Vital Signs: Blood pressure 158/70, pulse of 64. Chest: Clear to auscultation. Heart: S1 and S2, regular. Abdomen: Soft and nontender. Extremities: No edema. Dressing on the foot. Laboratory Data: H and H 9.1/27.5. Sodium 137, potassium 4.4, bicarb 26, BUN 79, creatinine 2.8, ca lcium 8.5, phosphorus 3.8. Current Medications: The patient on its include vancomycin, Plavix, Epogen, carvedilol 12.5, clonidi ne 0.1 p.r.n., hydralazine 50 t.i.d., nifedipine 30, trazodone, Depakote. Assessment And Plan: 1.End-stage renal disease, stable. We will continue the patient on dialysis Monday, Monday, and Monday. 2.Secondary hypoparathyroidism, stable. Continue current treatment. 3.Anemia. Continue HEATHER. 4.Osteomyelitis. Continue IV antibiotic. We will follow up with primary and ID. TRISHA/TASHA Voice ID: [id number] Report ID: [id number]
--- NOTE | 2018-07-04 16:44 | PN ---
Subjective: The patient is lying in bed. Denies any headache, nausea, vomiting, chest pain, abdomin al pain, constipation, or diarrhea. Objective: Vital Signs: Temperature 97, pulse 62, respirations 18, blood pressure 126/62. Lungs: Basal crackles. Heart: S1, S2, regular. Abdomen: Soft, nontender. Bowel sounds present. Extremity: No edema. Left foot and ankle wound noted. Minimal discharge from both site. Continue IV antibiotic. Total course of 6 weeks. We will follow the patient as needed. NICK/TASHA Voice ID: [id number] Report ID: [id number]
[2018-07-04] MEDS: ENOXAPARIN 30 MG/0.3 ML SQ SCH (16:59)
--- NOTE | 2018-07-04 17:53 | PN ---
There has not been any significant progress on her. Transfer plan, she is still in the hospital. I spoke to the son and it looks like they are having a family talk and gatherings regarding her future care. BENNETT/TASHA Voice ID: [id number] Report ID: [id number]
[2018-07-04] MEDS: TERAZOSIN HCL 1 MG CAP PO SCH (20:55)
[2018-07-04] MEDS: ATORVASTATIN 20 MG TAB PO SCH (20:56)
[2018-07-04] MEDS: DIPHENHYDRAMINE 25 MG TAB/CAP PO PRN (21:36)
[2018-07-05] MEDS: INSULIN -REGULAR HUMAN 50 UNIT/0.5 ML ML SQ SCH ×4 (07:30→21:55)
[2018-07-05] MEDS: POLYETHYL GLY 3350 17 GM/DOSE PO SCH (08:30)
[2018-07-05] MEDS: JUVEN PACKET PO SCH ×2 (08:31→20:38)
[2018-07-05] MEDS: NIFEDIPINE XL 30 MG TABLET PO SCH (08:32)
[2018-07-05] MEDS: FERROUS SULFATE 325 MG TAB PO SCH ×2 (08:32→20:37)
[2018-07-05] MEDS: CLOPIDOGREL 75 MG TABLET PO SCH (08:32)
[2018-07-05] MEDS: ASPIRIN 81 MG CHEWABLE TABLET PO SCH (08:32)
[2018-07-05] MEDS: SEVELAMER CARBONATE 800 MG TABLET PO SCH ×3 (08:32→17:57)
[2018-07-05] MEDS: DIVALPROEX DR 500MG TAB PO SCH ×2 (08:33→20:36)
[2018-07-05] MEDS: CARVEDILOL 12.5 MG TAB PO SCH ×2 (08:33→20:37)
[2018-07-05] MEDS: HYDRALAZINE HCL 25 MG TABLET PO SCH ×3 (08:33→20:37)
[2018-07-05] MEDS: MEDIHONEY 44 ML TOPICAL TUBE TOP SCH (08:33)
[2018-07-05] MEDS: INSULIN GLARGINE 100 UNITS/ML SQ SCH ×2 (08:34→21:56)
[2018-07-05] MEDS ORDERED: VANCOMYCIN 1.5 GM in NA CHLORIDE 0.9% 500 ML IVPB SCH (17:00)
[2018-07-05] MEDS: ENOXAPARIN 30 MG/0.3 ML SQ SCH (17:57)
[2018-07-05] MEDS: TERAZOSIN HCL 1 MG CAP PO SCH (20:36)
[2018-07-05] MEDS: DIPHENHYDRAMINE 25 MG TAB/CAP PO PRN (20:36)
[2018-07-05] MEDS: ATORVASTATIN 20 MG TAB PO SCH (20:36)
--- NOTE | 2018-07-05 23:08 | P.PN ---
Subjective Date of Service: 07/05/18 Chief Complaint: Chronic wounds and osteomyelitis left ankle Subjective: No new changes ESRD pt , recent leg surgery, admitted for AMS and hypoglycemia BP controlled HD MWF monitor vanco level pending placement Physical Examination - Vital Signs Temperature: 98.4 F Blood Pressure: 121/58 Pulse: 66 Respirations: 18 Pulse Ox (%): 98 - Physical Exam General: Alert, In no apparent distress HEENT: Atraumatic Neck: Supple, Without JVD or thyroid abnormality Respiratory: Clear to auscultation bilaterally, Normal air movement Cardiovascular: No edema, Regular rate/rhythm, Normal S1 S2, No gallops, No rubs , No murmurs Gastrointestinal: Normal bowel sounds, Soft and benign Integumentary: No rashes Assessment And Plan - Current Problems (Diagnosis) (1) Influenza A Onset Date: 06/15/18 Current Visit: Yes Status: Acute (2) Stage II pressure ulcer of buttock Onset Date: 06/15/18 Current Visit: Yes Status: Acute (3) ESRD (end stage renal disease) on dialysis Onset Date: 06/15/18 Current Visit: Yes Status: Chronic - Plan ESRD on HD MWF via Rt permcath will cont MWF renal dose meds monitor Vanco level Anemia On HEATHER 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
--- NOTE | 2018-07-06 01:12 | PN ---
The patient is stable. She is afebrile. She is on vancomycin, under dialysis. There is no change i n her transfer status. RRK/MODL Voice ID: [id number] Report ID: [id number]
[2018-07-06] MEDS: INSULIN -REGULAR HUMAN 50 UNIT/0.5 ML ML SQ SCH ×4 (07:30→23:19)
[2018-07-06] MEDS: MEDIHONEY 44 ML TOPICAL TUBE TOP SCH (09:00)
[2018-07-06] MEDS: POLYETHYL GLY 3350 17 GM/DOSE PO SCH (09:00)
[2018-07-06] MEDS: INSULIN GLARGINE 100 UNITS/ML SQ SCH ×2 (09:00→23:19)
[2018-07-06] MEDS: JUVEN PACKET PO SCH ×2 (10:36→23:22)
[2018-07-06] MEDS: SEVELAMER CARBONATE 800 MG TABLET PO SCH ×3 (10:42→17:04)
[2018-07-06] MEDS: CARVEDILOL 12.5 MG TAB PO SCH ×2 (10:42→23:21)
[2018-07-06] MEDS: CLOPIDOGREL 75 MG TABLET PO SCH (10:42)
[2018-07-06] MEDS: FERROUS SULFATE 325 MG TAB PO SCH ×2 (10:42→23:18)
[2018-07-06] MEDS: NIFEDIPINE XL 30 MG TABLET PO SCH (10:42)
[2018-07-06] MEDS: HYDRALAZINE HCL 25 MG TABLET PO SCH ×3 (10:43→23:22)
[2018-07-06] MEDS: ASPIRIN 81 MG CHEWABLE TABLET PO SCH (10:43)
[2018-07-06] MEDS: DIVALPROEX DR 500MG TAB PO SCH ×2 (10:44→23:18)
--- NOTE | 2018-07-06 12:22 | P.PN ---
Subjective Date of Service: 07/06/18 Chief Complaint: Chronic wounds and osteomyelitis left ankle Subjective: No new changes ESRD pt , recent leg surgery, admitted for AMS and hypoglycemia BP controlled HD today BS control monitor vanco level pending placement Physical Examination - Vital Signs Temperature: 98.1 F Blood Pressure: 149/66 Pulse: 63 Respirations: 18 Pulse Ox (%): 97 - Physical Exam General: Alert, In no apparent distress HEENT: Atraumatic Neck: Supple, Without JVD or thyroid abnormality Respiratory: Clear to auscultation bilaterally, Normal air movement Cardiovascular: No edema, Regular rate/rhythm, Normal S1 S2 Gastrointestinal: Normal bowel sounds, Soft and benign Integumentary: No rashes Assessment And Plan - Current Problems (Diagnosis) (1) Influenza A Onset Date: 06/15/18 Current Visit: Yes Status: Acute (2) Stage II pressure ulcer of buttock Onset Date: 06/15/18 Current Visit: Yes Status: Acute (3) ESRD (end stage renal disease) on dialysis Onset Date: 06/15/18 Current Visit: Yes Status: Chronic - Plan ESRD on HD MWF via Rt permcath will cont MWF renal dose meds monitor Vanco level Anemia On HEATHER 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
[2018-07-06] MEDS: ENOXAPARIN 30 MG/0.3 ML SQ SCH (17:03)
[2018-07-06] MEDS: EPOETIN ALFA 10,000 UNIT/ML VIAL SQ SCH (19:19)
[2018-07-06] MEDS: TERAZOSIN HCL 1 MG CAP PO SCH (23:18)
[2018-07-06] MEDS: ATORVASTATIN 20 MG TAB PO SCH (23:18)
[2018-07-07] MEDS: INSULIN -REGULAR HUMAN 50 UNIT/0.5 ML ML SQ SCH (07:30)
[2018-07-07] MEDS: MEDIHONEY 44 ML TOPICAL TUBE TOP SCH (09:00)
[2018-07-07] MEDS: JUVEN PACKET PO SCH (09:00)
[2018-07-07] MEDS: INSULIN GLARGINE 100 UNITS/ML SQ SCH (09:00)
[2018-07-07] MEDS: POLYETHYL GLY 3350 17 GM/DOSE PO SCH (09:00)
[2018-07-07] MEDS: SEVELAMER CARBONATE 800 MG TABLET PO SCH (09:30)
[2018-07-07] MEDS: ASPIRIN 81 MG CHEWABLE TABLET PO SCH (09:30)
[2018-07-07] MEDS: FERROUS SULFATE 325 MG TAB PO SCH (09:30)
[2018-07-07] MEDS: CLOPIDOGREL 75 MG TABLET PO SCH (09:30)
[2018-07-07] MEDS: DIVALPROEX DR 500MG TAB PO SCH (09:30)
[2018-07-07] MEDS: NIFEDIPINE XL 30 MG TABLET PO SCH (09:30)
[2018-07-07] MEDS: HYDRALAZINE HCL 25 MG TABLET PO SCH (09:30)
[2018-07-07] MEDS: CARVEDILOL 12.5 MG TAB PO SCH (09:30)
== END 2018-07-07 09:37 | DRG 539 ==
LOC: ER 10:48 → ERHOLD 13:39 → 3RD-ICU 17:41 → 2ND 06-17 14:00
PROVIDERS: ADMIT Family Medicine; ATTEND Internal Medicine
PROC: 5A1D70Z Performance of Urinary Filtration, Intermittent, Less than 6 Hours Per Day (ICD-10-PCS; principal; 2018-06-16)
PROC: 30233N1 Transfusion of Nonautologous Red Blood Cells into Peripheral Vein, Percutaneous Approach (ICD-10-PCS; 2018-06-16)
PROC: 5A1D70Z Performance of Urinary Filtration, Intermittent, Less than 6 Hours Per Day (ICD-10-PCS; 2018-06-18)
PROC: 0JH63XZ Insertion of Tunneled Vascular Access Device into Chest Subcutaneous Tissue and Fascia, Percutaneous Approach (ICD-10-PCS; 2018-06-19)
PROC: 02HV33Z Insertion of Infusion Device into Superior Vena Cava, Percutaneous Approach (ICD-10-PCS; 2018-06-19)
PROC: B518YZA Fluoroscopy of Superior Vena Cava using Other Contrast, Guidance (ICD-10-PCS; 2018-06-19)
PROC: 5A1D70Z Performance of Urinary Filtration, Intermittent, Less than 6 Hours Per Day (ICD-10-PCS; 2018-06-21)
PROC: 5A1D70Z Performance of Urinary Filtration, Intermittent, Less than 6 Hours Per Day (ICD-10-PCS; 2018-06-23)
PROC: 5A1D70Z Performance of Urinary Filtration, Intermittent, Less than 6 Hours Per Day (ICD-10-PCS; 2018-06-25)
PROC: 5A1D70Z Performance of Urinary Filtration, Intermittent, Less than 6 Hours Per Day (ICD-10-PCS; 2018-06-27)
PROC: 5A1D70Z Performance of Urinary Filtration, Intermittent, Less than 6 Hours Per Day (ICD-10-PCS; 2018-06-29)
PROC: 5A1D70Z Performance of Urinary Filtration, Intermittent, Less than 6 Hours Per Day (ICD-10-PCS; 2018-07-02)
PROC: 5A1D70Z Performance of Urinary Filtration, Intermittent, Less than 6 Hours Per Day (ICD-10-PCS; 2018-07-04)
PROC: 5A1D70Z Performance of Urinary Filtration, Intermittent, Less than 6 Hours Per Day (ICD-10-PCS; 2018-07-06)
DX: M86.162 Other acute osteomyelitis, left tibia and fibula (principal); N18.6 End stage renal disease; G92 Toxic encephalopathy; I12.0 Hypertensive chronic kidney disease with stage 5 chronic kidney disease or end stage renal disease; N30.00 Acute cystitis without hematuria; M87.27 Osteonecrosis due to previous trauma, ankle, foot and toes; N25.81 Secondary hyperparathyroidism of renal origin; E11.649 Type 2 diabetes mellitus with hypoglycemia without coma; Z88.5 Allergy status to narcotic agent; Z87.891 Personal history of nicotine dependence; Z86.73 Personal history of transient ischemic attack (TIA), and cerebral infarction without residual deficits; E11.22 Type 2 diabetes mellitus with diabetic chronic kidney disease; Z99.2 Dependence on renal dialysis; Z79.4 Long term (current) use of insulin; Z79.84 Long term (current) use of oral hypoglycemic drugs; G40.909 Epilepsy, unspecified, not intractable, without status epilepticus; K74.60 Unspecified cirrhosis of liver; J09.X2 Influenza due to identified novel influenza A virus with other respiratory manifestations; S82.852S Displaced trimalleolar fracture of left lower leg, sequela; N25.0 Renal osteodystrophy; T81.42XD Infection following a procedure, deep incisional surgical site, subsequent encounter; B95.62 Methicillin resistant Staphylococcus aureus infection as the cause of diseases classified elsewhere; D63.1 Anemia in chronic kidney disease; E11.65 Type 2 diabetes mellitus with hyperglycemia; W01.0XXS Fall on same level from slipping, tripping and stumbling without subsequent striking against object, sequela; E87.5 Hyperkalemia; L89.152 Pressure ulcer of sacral region, stage 2
CPT/HCPCS: 36415; 36430; 70450; 71045; 72125; 76000; 80048; 80053; 80069; 80076; 80164; 80202; 81001; 82140; 82607; 82728; 82746; 82947; 82962; 83540; 83615; 83690; 83735; 83970; 84100; 84145; 84443; 84466; 85025; 85610; 86317; 86706; 86850; 86900; 86901; 87040; 87070; 87075; 87077; 87086; 87088; 87186; 87205; 87340; 87804; 90935; 93005; 93926; 94760; 96374; 96375; 97110; 97163; 97530; 97542; 99291; C1752; J0690; J0696; J1644; J1650; J2250; J2310; J2704; J3370; J7030; P9016; Q4081

== ENCOUNTER 2018-11-05 10:13 | Emergency (ER) | payer OTHER ==
--- OUTSIDE RECORDS SUMMARY | 2018-11-05 10:22 | XMS REPORT | Clinical Summary ---
:1950 Author Organization [facility] Address [address] [place] [address] Care Team Providers Name Role Phone Chapin Bliss MD Primary Care Provider Allergies Active Allergy Reactions Severity Noted Date Comments Codeine GI Intolerance 10/15/2018 Medications Medication Sig Dispensed Refills Start Date End Date Status insulin ASPART Inject 3 Units 0 Active (NovoLOG) 100 unit/mL under the skin 3 injection (three) times a day before meals. atorvastatin (LIPITOR) Take 20 mg by 0 06/01/2018 06/01/2019 Active 20 MG tablet mouth. aspirin 81 mg chewable Chew 81 mg. 0 Active tablet carvedilol (COREG) Take 12.5 mg by 0 06/01/2018 06/01/2019 Active 12.5 MG tablet mouth. clopidogrel (PLAVIX) Take 75 mg by 0 Active 75 mg tablet mouth. divalproex (DEPAKOTE) Take 500 mg by 0 10/03/2018 Active 500 MG EC tablet mouth 2 (two) times a day. hydrALAZINE Take 50 mg by 0 06/01/2018 06/01/2019 Active (APRESOLINE) 50 MG mouth 3 (three) tablet times a day. insulin GLARGINE Inject 35 Units 0 06/08/2018 06/08/2019 Active (LANTUS U-100 INSULIN) under the skin 100 unit/mL injection daily. (vial) sennosides-docusate Take 2 tablets 0 01/11/2018 01/11/2019 Active sodium (SENOKOT-S) by mouth. 8.6-50 mg per tablet rivastigmine (EXELON) Place 9.5 0 09/28/2018 Active 9.5 mg/24 hr patches on the skin daily. NIFEdipine CC (ADALAT Take 30 mg by 0 06/02/2018 06/02/2019 Active CC) 30 MG 24 hr tablet mouth. VELPHORO 500 mg Chew 1,000 mg 3 0 10/04/2018 Active tablet,chewable times daily around food. traMADol (ULTRAM) 50 Take 50 mg by 0 10/08/2018 Active mg tablet mouth 2 (two) times a day as needed. terazosin (HYTRIN) 2 Take 2 mg by 0 09/17/2018 Active MG capsule mouth nightly. zinc oxide-petrolatum Apply 5 g 0 03/07/2018 Active 20-51 % paste topically. acetaminophen Take 650 mg by 0 01/11/2018 01/06/2019 Active (TYLENOL) 325 MG mouth every 8 tablet (eight) hours as needed. LORAZepam (ATIVAN) 0.5 Take 0.5 mg by 0 10/06/2018 Active MG tablet mouth 3 (three) times a day as needed. ferrous sulfate 325 Take 325 mg by 0 03/07/2018 03/07/2019 Active (65 FE) MG tablet mouth. DULoxetine (CYMBALTA) 30 mg. 0 09/28/2018 Active 30 MG capsule ascorbic acid, vitamin Take 250 mg by 0 Active C, (VITAMIN C) 250 MG mouth daily. tablet senna (SENOKOT) 8.6 mg Take 1 tablet by 0 Active tablet mouth daily. Active Problems Not on file Encounters Date Type Specialty Care Team Description 10/15/2018 Anesthesia Event General Surgery Yajaira Tang FNP 10/15/2018 Surgery General Surgery Gilles Quigley AV FISTULA T., MD -LEFT UPPER EXTREMITY 10/15/2018 Hospital Encounter General Surgery Gilles Quigley MD after 11/04/2017 Social History Tobacco Use Types Packs/Day Years Used Date Never Smoker Smokeless Tobacco: Never Used Alcohol Use Drinks/Week oz/Week Comments Not Currently NEEDED Sex Assigned at Date Recorded Not on file Job Start Date Occupation Industry Not on file Not on file Not on file Travel History Travel Start Travel End No recent travel history available. Last Filed Vital Signs Vital Sign Reading Time Taken Blood Pressure 155/70 10/15/2018 4:15 PM CDT Pulse 66 10/15/2018 4:15 PM CDT Temperature 36.9 C (98.4 F) 10/15/2018 4:30 PM CDT Respiratory Rate 16 10/15/2018 5:15 PM CDT Oxygen Saturation 98% 10/15/2018 4:15 PM CDT Inhaled Oxygen Concentration - - Weight 84.8 kg (187 lb) 10/15/2018 1:10 PM CDT Height 165.1 cm (5' 5") 10/15/2018 1:10 PM CDT Body Mass Index 31.12 10/15/2018 1:10 PM CDT Plan of Treatment Health Maintenance Due Date Last Done Comments BREAST CANCER SCREENING 2002 COLONOSCOPY SCREENING 2002 SHINGLES VACCINES (#1) 2002 65+ PNEUMOCOCCAL VACCINE (1 of 2 - PCV13) 2017 INFLUENZA VACCINE 11/29/2018 Procedures Procedure Name Priority Date/Time Associated Comments Diagnosis POC GLUCOSE Routine 10/15/2018 3:39 PM Results for this CDT procedure are in the results section. ANESTHESIA Routine 10/15/2018 2:30 PM PERIPHERAL BLOCK CDT Procedure Note - Ema Chung MD - 10/15/2018 2:30 PM CDT Peripheral Block Performed by: Ema Chung MD Authorized by: Ema Chung MD Patient Location: Pre-op Start Time: 10/15/2018 1:56 PM End Time: 10/15/2018 2:05 PM Reason for Block: primary anesthetic Staff: Anesthesiologist: Ema Chung MD Resident/SOFTWARE DEVELOPER INTERN/AA: Ghislaine Farah CRNA Performed by: Anesthesiologist Preprocedure: patient identified, IV checked, site and side verified, risks and benefits discussed, procedure verified, surgical consent complete, patient position confirmed, monitors and equipment checked, pre-op evaluation complete and site marked Time Out Performed: 10/15/2018 1:56 PM Peripheral Nerve Block: Patient Position: Right lateral decubitus Prep: ChloraPrep and patient draped Monitoring: Blood pressure monitoring, continuous pulse oximetry and heart rate Block Type: Supraclavicular Laterality: Left Injection Technique: Single injection Procedures: ultrasound guided Ultrasound documentation: Printed/placed in chart Local Infiltration (See MAR for details): Ropivacaine Needle: Needle Type: Pajunk Needle Gauge: 21 G Needle Length: 10 cm Assessment: Injection Assessment: Visualized needle/local anesthetic surrounding nerve , visualized pertinent vascular structures and nerves, needle tip visualized at all times during injection of medication, no symptoms of intraneural/intravenous injection and intermittent aspiration during local anesthetic administration Paresthesia Pain: None Heart Rate Change: No Slow Fractionated Injection: Yes Block outcome: No apparent complications, patient comfortable and patient tolerated procedure well POC GLUCOSE Routine 10/15/2018 1:30 PM CDT XR CHEST 1 VW PORTABLE Routine 10/15/2018 1:06 PM CDT ECG 12-LEAD Routine 10/15/2018 12:45 PM CDT POC PANEL 4 Routine 10/15/2018 12:42 PM CDT ESTIMATED GFR Routine 10/15/2018 12:36 PM CDT PARTIAL THROMBOPLASTIN TIME Routine 10/15/2018 12:36 PM CDT Results for this (PTT) procedure are in the results section. PROTHROMBIN TIME WITH INR Routine 10/15/2018 12:36 PM CDT HC COMPLETE BLD COUNT W/AUTO Routine 10/15/2018 12:36 PM CDT Results for this DIFF procedure are in the results section. BASIC METABOLIC PANEL Routine 10/15/2018 12:36 PM CDT TYPE AND SCREEN Routine 10/15/2018 12:36 PM CDT after 11/04/2017 Results POC glucose (10/15/2018 3:39 PM CDT)Only the most recent of2 resultswithin the time period is included. POC glucose 111 (H) 65 - 99 mg/dL ELLIOTT MEHTA Comment: [facility] RN Notified Meter ID: [id number] Home Health Nurse: René Lieberman Specimen Performing Organization Address City/State/Zipcode Phone Number [facility] DEPARTMENT OF PATHOLOGY [address] [place] [address] AND GENOMIC MEDICINE [facility] [address] [place] [address] HOSPITAL XR Chest 1 Vw Portable (10/15/2018 1:06 PM CDT) Specimen Narrative Performed At EXAMINATION:XR CHEST 1 VW PORTABLE [facility] CLINICAL HISTORY:Pre-Op COMPARISON:No IMPRESSION: Right IJ approach double lumen central line, tips projecting over the SVC. No pneumothorax identified. Cardiac silhouette and pulmonary vasculature within normal as. No lobar consolidation or pleural effusion identified on the frontal view(s). Cholecystectomy. [facility]-[id number] Procedure Note Hm Interface, Radiology Results Incoming - 10/15/2018 2:17 PM CDT EXAMINATION: XR CHEST 1 VW PORTABLE CLINICAL HISTORY: Pre-Op COMPARISON: No IMPRESSION: Right IJ approach double lumen central line, tips projecting over the SVC. No pneumothorax identified. Cardiac silhouette and pulmonary vasculature within normal as. No lobar consolidation or pleural effusion identified on the frontal view(s). Cholecystectomy. [facility]-[id number] Performing Organization Address [facility] Phone Number [facility] [address] [place] [address] ECG 12 lead (10/15/2018 12:45 PM CDT) Ventricular rate 59 [facility] Atrial rate 59 [facility] NM interval 172 [facility] QRSD interval 72 [facility] QT interval 426 [facility] QTC interval 421 [facility] P axis 1 41 [facility] QRS axis 1 -18 [facility] T wave axis 85 [facility] EKG impression Sinus [facility] MUSE bradycardia-Cannot rule out Inferior infarct , age undetermined-Abnormal ECG-No previous ECGs available-Electronicall y Signed By Nohemy HERNANDEZ, Nestordamiguel ([id number]) on 10/16/2018 7:17:44 AM Specimen Narrative Performed At Performing Organization Address [facility] Phone Number [facility] [employer] [address] [place] [address] POC panel 4 (10/15/2018 12:42 PM CDT) POC sodium 139 135 - 148 [facility] mmol/L [facility] POC potassium 4.5 3.5 - 5.0 [facility] mmol/L [facility] POC hematocrit 34 (L) 37 - 47 % [facility] POC glucose 62 (L) 65 - 99 mg/dL [facility] POC hemoglobin 11.6 (L) 12.0 - 16.0 [facility] Comment: g/dL [place] Meter ID: [id number] HOSPITAL Home Health Nurse: Kemp Candice Specimen Blood Performing Organization Address [facility] Phone Number [facility] DEPARTMENT OF PATHOLOGY [address] [place] [address] Estimated GFR (10/15/2018 12:36 PM CDT) Pathologist [facility] Estimated GFR 16 (A) mL/min/1.73 ELLIOTT MEHTA Comment: [address] CatergoryUnits[employer]pretation HOSPITAL G1 >=90 Normal or high G2 60-89Mildly decreased [id number] to moderately decreased [id number] to severely decreased G4 15-29Severely decreased G5 <15Kidney failure The eGFR was calculated using the Chronic Kidney Disease Epidemiology Collaboration (CKD-EPI) equation. Interpretation is based on recommendations of the National Kidney Foundation-Kidney Disease Outcomes Quality Initiative (NKF-KDOQI) published in 2014. Specimen Plasma specimen Performing Organization Address [facility] Phone Number [facility] DEPARTMENT OF PATHOLOGY [address] [place] [address] Partial thromboplastin time, activated (10/15/2018 12:36 PM CDT) Pathologist [facility] PTT 41.3 (H) 23.0 - 36.0 ELLIOTT MEHTA Comment: [facility] PTT therapeutic range for unfractionated heparin is HOSPITAL 61.0-112.0 seconds which corresponds to Anti-Xa 0.3-0.7 U/ml. Specimen Blood Performing Organization Address [facility] Phone Number [facility] DEPARTMENT OF PATHOLOGY [address] [place] [address] Prothrombin time with INR (10/15/2018 12:36 PM CDT) Pathologist [facility] Prothrombin time 13.3 11.5 - 14.5 [facility] INR 1.0 [place] Comment: JANINE MANCILLA [facility] International Normalized Ratio (INR) is a [facility] monitoring tool for patients who are stable on oral anticoagulant therapy. An INR of 2.0-3.0 is suggested for deep vein thrombosis/pulmonary embolism. Specimen Blood Performing Organization Address [facility]/State/Zipcode Phone Number [facility] DEPARTMENT OF PATHOLOGY [address] [place] [address] AND [facility] [id number] [place] [address] HOSPITAL CBC with platelet and differential (10/15/2018 12:36 PM CDT) WBC 7.3 4.5 - 11.0 k/uL [facility] RBC 3.39 (L) 4.20 - 5.50 [facility] m/uL [facility] HGB 10.7 (L) 12.0 - 16.0 [facility] g/dL [facility] HCT 34.2 (L) 37.0 - 47.0 % [facility] MCV 100.9 (H) 82.0 - 100.0 fL [facility] MCH 31.6 27.0 - 34.0 pg [facility] MCHC 31.3 31.0 - 37.0 [facility] g/dL [facility] RDW - SD 51.3 37.0 - 55.0 fL [facility] MPV 10.6 6.9 - 11.0 fL [facility] Platelet count 236 150 - 400 K/uL [facility] Nucleated RBC 0.00 /100 WBC [facility] Neutrophils 63.8 39.0 - 69.0 % [facility] Lymphocytes 21.7 (L) 25.0 - 45.0 % [facility] Monocytes 10.5 (H) 0.0 - 10.0 % [facility] Eosinophils 3.3 0.0 - 5.0 % [facility] Basophils 0.4 0.0 - 1.0 % [facility] Immature granulocytes 0.3 0.0 - 1.0 % [facility] Specimen Blood Performing Organization Address City/State/Zipcode Phone Number [facility] DEPARTMENT OF PATHOLOGY [address] [place] [address] AND [facility] [id number] [place] [address] HOSPITAL Type and screen (10/15/2018 12:36 PM CDT) ABO grouping O [facility] Rh type POS [facility] Antibody screen (gel) NEG [facility] Specimen Blood Performing Organization Address City/State/Zipcode Phone Number [facility] DEPARTMENT OF PATHOLOGY [phone] [place] [address] Basic metabolic panel (10/15/2018 12:36 PM CDT) Sodium 138 135 - 148 mEq/L [facility] Potassium 4.6 3.5 - 5.0 mEq/L [facility] Chloride 99 98 - 112 mEq/L [facility] CO2 28 24 - 31 mEq/L [facility] Anion gap 11@ANIO 7 - 15 mEq/L [facility] BUN 56 (H) 8 - 23 mg/dL [facility] Creatinine 2.88 (H) 0.50 - 0.90 mg/dL [facility] Glucose 66 65 - 99 mg/dL [facility] Calcium 9.0 8.8 - 10.2 mg/dL [facility] Specimen Plasma specimen Performing Organization Address City/State/Zipcode Phone Number [facility] DEPARTMENT OF PATHOLOGY [id number] [place] [address] [place] [address] HOSPITAL after 11/04/2017 Insurance Payer Benefit Plan / Subscriber ID Effective Dates Phone Address Type Group MEDICARE MEDICARE PART A xxxxxxxxxx 2017-Present [place], [place] Medicare AND B Advance Directives Patient has advance care planning documents on file. For more information, please contact:[place] [address]
--- NOTE | 2018-11-05 11:15 | RAD REPORT ---
EXAM DESCRIPTION: CT - [id number] - 11/05/2018 10:32 am CLINICAL HISTORY: Fall, head and neck injury, anticoagulation therapy COMPARISON: CT head and cervical June 2018 TECHNIQUE: Axial 5 mm thick images of the head were obtained. Axial 2 mm thick images of the cervic al spine were obtained with sagittal and coronal reconstruction images generated and reviewed. All CT scans are performed using dose optimization technique as appropriate and may include automated exposure control or mA/KV adjustment according to patient size. FINDINGS: No intracranial hemorrhage, mass, edema or acute intracranial finding. No suspicion for acute infarct ion. No cortical edema or sulcal effacement. Prominent atrophy and chronic ischemic changes are prese nt with ventricles in proportion to the amount of volume loss. Mastoid air cells and paranasal sinuse s are clear. No globe or orbit abnormality seen. Moderate-sized midline and left frontal scalp hemato ma. Underlying bone is intact. Cervical body height and alignment are normal. No disk space narrowing. No fracture or acute bony abn ormality. Degenerative changes are present at the dens C1 level with calcification of the transverse ligament. Disc bulge, endplate spurring and calcifications are present at the C3-4, C4-5 and C5-6 lev els. Central spinal stenosis is present at C5-6. Mild multilevel foraminal encroachment changes are p resent. No paraspinal mass or hematoma. IMPRESSION: Prominent atrophy and chronic ischemic change similar to comparison. No acute intracrani al finding. Moderate sized midline and left-side frontal scalp hematoma. Underlying bone is intact. Cervical spine degenerative changes are present as detailed. No fracture or acute finding.
--- NOTE | 2018-11-05 12:09 | EDPHYS ---
Physician Documentation [facility] Name: Apoorva Christie Age: 68 yrs Sex: Female : 1950 Arrival Date: 11/05/2018 Time: 10:19 Bed 24 Private MD: ED Physician Hector Acuna HPI: 11/05 12:53 This 68 yrs old Female presents to ER via EMS with complaints of Fall Injury. gs 12:53 Details of fall: The patient fell from seated position, out of a wheelchair. Onset: The gs symptoms/episode began/occurred acutely, just prior to arrival. Associated injuries: The patient sustained injury to the head, abrasion, hematoma. Severity of symptoms: At their worst the symptoms were moderate, in the emergency department the symptoms are unchanged. The patient has experienced similar episodes in the past, a few times. Historical: - Allergies: 11:26 codeine sulfate; ae4 - Home Meds: 11:26 amlodipine 10 mg tab [Active]; aspirin 81 mg Oral chew [Active]; atorvastatin 20 mg ae4 Oral tab 1 tab once daily [Active]; carvedilol 6.25 mg Oral tab [Active]; donepezil 5 mg Oral tab 1 tab once daily [Active]; Lantus 100 unit/mL Sub-Q soln [Active]; lisinopril 40 mg Oral tab [Active]; Novolin N Sub-Q [Active]; - PMHx: 11:26 brain blockage; Cirrhosis; CVA; Diabetes - IDDM; Hypertension; meningitis; progressive 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 - Social history:: Smoking status: Patient/guardian denies using tobacco. - Ebola Screening: : No symptoms or risks identified at this time. ROS: 12:53 Neuro: Negative for loss of consciousness. gs 12:53 All other systems are negative. 12:53 Cardiovascular: Negative for chest pain. gs 12:53 Respiratory: Negative for shortness of breath. 12:53 Abdomen/GI: Negative for vomiting. Exam: 12:53 ENT: Nares patent. No nasal discharge, no septal abnormalities noted. Tympanic gs membranes are normal and external auditory canals are clear. Oropharynx with no redness, swelling, or masses, exudates, or evidence of obstruction, uvula midline. Mucous membranes moist. Neck: Trachea midline, no thyromegaly or masses palpated, and no cervical lymphadenopathy. Supple, full range of motion without nuchal rigidity, or vertebral point tenderness. No Meningismus. Chest/axilla: Normal chest wall appearance and motion. Nontender with no deformity. No lesions are appreciated. Cardiovascular: Regular rate and rhythm with a normal S1 and S2. No gallops, murmurs, or rubs. Normal PMI, no JVD. No pulse deficits. Respiratory: Lungs have equal breath sounds bilaterally, clear to auscultation and percussion. No rales, rhonchi or wheezes noted. No increased work of breathing, no retractions or nasal flaring. Abdomen/GI: Soft, non-tender, with normal bowel sounds. No distension or tympany. No guarding or rebound. No evidence of tenderness throughout. Back: No spinal tenderness. No costovertebral tenderness. Full range of motion. Skin: Warm, dry with normal turgor. Normal color with no rashes, no lesions, and no evidence of cellulitis. MS/ Extremity: Pulses equal, no cyanosis. Neurovascular intact. Full, normal range of motion. Neuro: Awake and alert, GCS 15, oriented to person, place, time, and situation. Cranial nerves II-XII grossly intact. Motor strength 5/5 in all extremities. Sensory grossly intact. Cerebellar exam normal. Normal gait. 12:53 Constitutional: The patient appears alert, awake. 12:53 Head/face: Noted is abrasion(s), that are moderate, of the forehead, contusion, that is deep, of the forehead, ecchymosis, that is moderate, of the left eye, hematoma, that is moderate, of the forehead, a laceration(s), that is superficial, of the tongue. 12:53 Eyes: Extraocular movements: intact throughout. Vital Signs: 10:21 BP 126 / 66; Pulse 68; Resp 16; Temp 97.5(O); Pulse Ox 96% on R/A; Weight 90.72 kg (R); ae4 11:28 BP 123 / 65; Pulse 65; Resp 16; Pulse Ox 96% on R/A; ae4 12:07 BP 132 / 55; Pulse 68; Resp 20; Temp 97.9(TE); Pulse Ox 97% ; lt1 13:30 BP 129 / 78; Pulse 71; Resp 18 S; Pulse Ox 98% on R/A; ca1 Denise Coma Score: 10:21 Eye Response: to voice(3). Verbal Response: oriented(5). Motor Response: obeys ae4 commands(6). Total: 14. Trauma Score (Adult): 10:21 Eye Response: to voice(0); Verbal Response: oriented(1); Motor Response: obeys ae4 commands(2); Systolic BP: > 89 mm Hg(4); Respiratory Rate: 10 to 29 per min(4); Denise Score: 14; Trauma Score: 11 MDM: 10:27 Patient medically screened. gs 12:53 Differential diagnosis: abrasion, closed head injury, contusion, fracture. Data gs reviewed: vital signs, nurses notes, radiologic studies. Counseling: I had a detailed discussion with the patient and/or guardian regarding: the historical points, exam findings, and any diagnostic results supporting the discharge/admit diagnosis, radiology results, the need for outpatient follow up. Response to treatment: the patient's symptoms have markedly improved after treatment, and as a result, I will discharge patient. 11/05 10:20 Order name: CT Head C Spine; Complete Time: 11:45 ss Administered Medications: 12:11 Drug: Tetanus-Diphtheria Toxoid Adult 0.5 ml {Supervisor Claims: Reimage. Exp: ae4 07/19/2022. Lot #: [id number]. } Route: IM; Site: right deltoid; 13:04 Follow up: Response: No adverse reaction ae4 13:38 Drug: [place] (7.5 mg-325 mg) 1 tabs Route: PO; ca1 13:39 Follow up: Response: Medication administered at discharge. ca1 Point of Care Testing: Blood Glucose: 11:21 Blood Glucose: 96 mg/dL; ae4 Ranges: Critical Glucose Levels:Adult <50 mg/dl or >400 mg/dl <40 mg/dl or >180 mg/dl Disposition: 11/05/18 12:08 Discharged to Home. Impression: Abrasion of other part of head. - Condition is Stable. - Discharge Instructions: Contusion. - Medication Reconciliation Form, Thank You Letter, Antibiotic Education, Prescription Opioid Use form. - Follow up: Private Physician; When: 2 - 3 days; Reason: Re-evaluation by your physician. Signatures: Dispatcher [employer] Hector Hubbard MD MD gs rAiane Montes RN RN ca1 Donato Camacho RN RN ae4 Corrections: (The following items were deleted from the chart) 13:43 12:08 11/05/2018 12:08 Discharged to Home. Impression: Abrasion of other part of head. ca1 Condition is Stable. Forms are Medication Reconciliation Form, Thank You Letter, Antibiotic Education, Prescription Opioid Use. Follow up: Private Physician; When: 2 - 3 days; Reason: Re-evaluation by your physician. gs
--- NOTE | 2018-11-05 12:09 | ER ---
Nurse's Notes [facility] Name: Apoorva Christie Age: 68 yrs Sex: Female : 1950 Arrival Date: 11/05/2018 Time: 10:19 Bed 24 Private MD: Diagnosis: Abrasion of other part of head Presentation: 11/05 10:24 Presenting complaint: EMS states: EMS states patient was sitting in wheelchair when she ae4 attempted to get up,( EMS reports patient is non-ambulatory.) when she fell forward striking her head and face on the floor. Care prior to arrival: EMS TECH states they removed a couple "blood clots from her mouth". Mechanism of Injury: Fall from standing position. Trauma event details: Injury occurred in the [facility]. 10:24 Acuity: AWA 3 ae4 10:24 Method Of Arrival: EMS: [facility] ae4 10:52 Transition of care: [facility] [place]. Onset of symptoms was November 05, 2018. Risk ae4 Assessment: Do you want to hurt yourself or someone else? Patient reports no desire to harm self or others. Initial Sepsis Screen: Does the patient meet any 2 criteria? No. Patient's initial sepsis screen is negative. Does the patient have a suspected source of infection? No. Patient's initial sepsis screen is negative. Trauma Activation: Physician: ED Physician; Name: ; Notified At: ; Arrived At: Physician: General Surgeon; Name: ; Notified At: ; Arrived At: Physician: Radiology; Name: ; Notified At: ; Arrived At: Physician: Respiratory; Name: ; Notified At: ; Arrived At: Physician: Lab; Name: ; Notified At: ; Arrived At: Historical: - Allergies: 11:26 codeine sulfate; ae4 - Home Meds: 11:26 amlodipine 10 mg tab [Active]; aspirin 81 mg Oral chew [Active]; atorvastatin 20 mg ae4 Oral tab 1 tab once daily [Active]; carvedilol 6.25 mg Oral tab [Active]; donepezil 5 mg Oral tab 1 tab once daily [Active]; Lantus 100 unit/mL Sub-Q soln [Active]; lisinopril 40 mg Oral tab [Active]; Novolin N Sub-Q [Active]; - PMHx: 11:26 brain blockage; Cirrhosis; CVA; Diabetes - IDDM; Hypertension; meningitis; progressive 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 - Social history:: Smoking status: Patient/guardian denies using tobacco. - Ebola Screening: : No symptoms or risks identified at this time. Screenin:20 Abuse screen: Denies threats or abuse. Nutritional screening: No deficits noted. ae4 Tuberculosis screening: No symptoms or risk factors identified. Fall Risk Fall in past 12 months (25 points). Secondary diagnosis (15 points) Alzheimer's, No IV (0 pts). Ambulatory Aid- None/Bed Rest/Nurse Assist (0 pts). Gait- Impaired (20 pts.). Mental Status- Overestimates/Forgets Limitations (15 pts.). Primary Survey: 10:51 NO uncontrolled hemorrhage observed. Breathing/Chest: Respiratory pattern: regular, ae4 Respiratory effort: spontaneous. Circulation: Cardiac rhythm: sinus rhythm. Disability Verbal Stimuli. Exposure/Environment: All clothing and personal items were removed. Forensic evidence collection is not deemed to be indicated at this time. Items placed in patient belonging bag. There is no evidence of uncontrolled external bleeding. 12:20 A: The patient is alert. Reassessment Breathing/Chest Respiratory pattern Regular ae4 Respiratory effort Spontaneous Breath sounds Clear. Assessment: 10:07 General: Appears in no apparent distress. uncomfortable, obese, Behavior is calm, ae4 cooperative, quiet. Pain: Complains of pain in top of head and forehead Pain does not radiate. Neuro: Level of Consciousness is awake, obeys commands, Oriented to person, place, situation. EENT: Oral mucosa is dry. Dried blood on lips and teeth noted. . Cardiovascular: Heart tones S1 S2 present Patient's skin is warm and dry. Respiratory: Airway is patent Respiratory effort is even, unlabored, Respiratory pattern is regular, symmetrical, Breath sounds are clear bilaterally. GI: Abdomen is round non-distended, obese, Bowel sounds present X 4 quads. : No signs and/or symptoms were reported regarding the genitourinary system. Derm: Bruising that is green, on abdomen. Musculoskeletal: Swelling present in top of head and forehead. 11:13 Reassessment: Patient is lying in bed with eyes closed, respirations even and ae4 unlabored. Respond to verbal stimuli. 12:16 Reassessment: Report given to darío Sam nurse at [facility] [place]. Cecy ae4 states she will call ER back when she finds out who will be transporting patient back to home facility. 12:21 Reassessment: Patient is more alert and states her tetanus shot status is not up to ae4 date. 13:01 Reassessment: Called [facility] [place] to confirm transportation for patient , spoke to ae4 Cecy Sam states transportation has been arranged and will be arriving in about 20-30 minutes. 13:40 Reassessment: Patient appears in no apparent distress at this time. Patient is alert, ca1 oriented x 3, equal unlabored respirations, skin warm/dry/pink. [facility] by [facility] personnel with daughter. Vital Signs: 10:21 BP 126 / 66; Pulse 68; Resp 16; Temp 97.5(O); Pulse Ox 96% on R/A; Weight 90.72 kg (R); ae4 11:28 BP 123 / 65; Pulse 65; Resp 16; Pulse Ox 96% on R/A; ae4 12:07 BP 132 / 55; Pulse 68; Resp 20; Temp 97.9(TE); Pulse Ox 97% ; lt1 13:30 BP 129 / 78; Pulse 71; Resp 18 S; Pulse Ox 98% on R/A; ca1 Denise Coma Score: 10:21 Eye Response: to voice(3). Verbal Response: oriented(5). Motor Response: obeys ae4 commands(6). Total: 14. Trauma Score (Adult): 10:21 Eye Response: to voice(0); Verbal Response: oriented(1); Motor Response: obeys ae4 commands(2); Systolic BP: > 89 mm Hg(4); Respiratory Rate: 10 to 29 per min(4); [place] Score: 14; Trauma Score: 11 ED Course: 10:05 Bed in low position. Call light in reach. Side rails up X2. monitoring analyst on. Pulse ae4 ox on. NIBP on. Warm blanket given. 10:19 Patient arrived in ED. ae4 10:21 Donato Camacho, SAMAN is Primary Nurse. ae4 10:27 Hector Acuna MD is Attending Physician. gs 10:28 Triage completed. ae4 10:32 CT Head C Spine In Process Unspecified. EDMS 10:51 Arm band placed on right wrist. ae4 11:27 Patient maintains SpO2 saturation greater than 95% on room air. ae4 12:20 Thermoregulation: warm blanket given to patient. ae4 13:41 No provider procedures requiring assistance completed. Patient did not have IV access ca1 during this emergency room visit. Administered Medications: 12:11 Drug: Tetanus-Diphtheria Toxoid Adult 0.5 ml {Alley Tender: [employer]. Exp: ae4 07/19/2022. Lot #: [id number]. } Route: IM; Site: right deltoid; 13:04 Follow up: Response: No adverse reaction ae4 13:38 Drug: [place] (7.5 mg-325 mg) 1 tabs Route: PO; ca1 13:39 Follow up: Response: Medication administered at discharge. ca1 Point of Care Testing: Blood Glucose: 11:21 Blood Glucose: 96 mg/dL; ae4 Ranges: Outcome: 12:08 Discharge ordered by . gs 13:41 [facility]charged to [facility]. Report called to [facility] Transfer form completed. Valuables ca1 list done. 13:41 Condition: stable 13:41 Discharge instructions given to [facility], Instructed on discharge instructions, follow up and referral plans. Demonstrated understanding of instructions, follow-up care. 13:43 Patient left the ED. ca1 Signatures: Dispatcher [employer] EDCT Hector Acuna MD MD Ariane Montes, RN RN ca1 [facility] Donato Camacho RN RN ae4
[2018-11-05] MEDS ORDERED: TETANUS & DIPHTHERIA TOX,ADULT 0.5 ML VIAL ONE (12:20)
[2018-11-05] MEDS ORDERED: HYDROCODONE/APAP 7.5/325 MG TAB ONE (13:51)
== END 2018-11-05 13:43 | disposition home or self-care (01) ==
LOC: ER 10:13
DX: S00.81XA Abrasion of other part of head, initial encounter (principal); W05.0XXA Fall from non-moving wheelchair, initial encounter; Y93.9 Activity, unspecified; Y92.9 Unspecified place or not applicable; Z23 Encounter for immunization; Z79.4 Long term (current) use of insulin; Z79.82 Long term (current) use of aspirin; Z88.5 Allergy status to narcotic agent; Z86.73 Personal history of transient ischemic attack (TIA), and cerebral infarction without residual deficits; I10 Essential (primary) hypertension; E11.9 Type 2 diabetes mellitus without complications
CPT/HCPCS: 70450; 72125; 82962; 90471; 90714; 99285

== ENCOUNTER 2018-11-07 09:00 | Emergency (ER) | payer OTHER ==
--- OUTSIDE RECORDS SUMMARY | 2018-11-07 09:03 | XMS REPORT | Clinical Summary ---
:1950 Author Organization [employer] Address [address] [place] [address] Care Team Providers Name Role Phone Chapin [...] Encounter General Surgery Gilles Quigley MD after 11/06/2017 Social History Tobacco Use Types Packs/Day Years [...] primary anesthetic Staff: Anesthesiologist: Ema Chung MD Resident/POULTRY PICKING MACHINE TENDER/AA: Ghislaine Farah CRNA Performed by: Anesthesiologist Preprocedure: [...] SCREEN Routine 10/15/2018 12:36 PM CDT after 11/06/2017 Results POC glucose (10/15/2018 3:39 PM CDT)Only the most recent of2 resultswithin the time period is included. POC glucose 111 (H) 65 - 99 mg/dL ELLIOTT MEHTA Comment: [facility] RN Notified Meter ID: [id number] Director Of Parks And Recreation: René Lieberman Specimen Performing Organization Address City/State/Zipcode Phone Number [facility] DEPARTMENT OF PATHOLOGY [address] [place] [address] AND GENOMIC MEDICINE [facility] [address] [place] [address] HOSPITAL XR Chest 1 Vw Portable (10/15/2018 1:06 PM CDT) Specimen Narrative Performed At EXAMINATION:XR CHEST 1 VW PORTABLE HM [facility] CLINICAL HISTORY:Pre-Op COMPARISON:No IMPRESSION: Right IJ approach double lumen central line, tips projecting over the SVC. No pneumothorax identified. Cardiac silhouette and pulmonary vasculature within normal as. No lobar consolidation or pleural effusion identified on the frontal view(s). Cholecystectomy. [facility]-[id number] Procedure Note Hm Interface, Radiology Results Incoming - 10/15/2018 2:17 PM CDT EXAMINATION: XR CHEST 1 VW PORTABLE CLINICAL HISTORY: Pre-Op COMPARISON: No IMPRESSION: Right IJ approach double lumen central line, tips projecting over the SVC. No pneumothorax identified. Cardiac silhouette and pulmonary vasculature within normal as. No lobar consolidation or pleural effusion identified on the frontal view(s). Cholecystectomy. [id number] Performing Organization Address [facility] Phone Number [facility] [address] [place] [address] ECG 12 lead (10/15/2018 12:45 PM CDT) Ventricular rate 59 [facility] MUSE Atrial rate 59 [facility] M[facility] ID interval 172 [facility] QRSD interval 72 [...] Specimen Narrative Performed At Performing Organization Address [facility] [place] Phone Number [facility] [employer] [address] [place] [address] POC panel 4 (10/15/2018 12:42 PM CDT) POC sodium 139 135 - 148 [facility] mmol/L [facility] POC potassium 4.5 3.5 - 5.0 [facility] mmol/L [facility] POC hematocrit 34 (L) 37 - 47 % [facility] POC glucose 62 (L) 65 - 99 mg/dL [facility] POC hemoglobin 11.6 (L) 12.0 - 16.0 [facility] Comment: g/dL [place] Meter ID: [id number] HOSPITAL Director Of Parks And Recreation: Kemp Candice Specimen Blood Performing Organization Address [facility] Phone Number [facility] DEPARTMENT OF PATHOLOGY [address] [place] [address] Estimated GFR (10/15/2018 12:36 PM CDT) Pathologist [facility] Estimated GFR 16 (A) mL/min/1.73 ELLIOTT MEHTA Comment: [address] CatergoryUnitsInterpretation HOSPITAL G1 >=90 Normal or high G2 60-89Mildly decreased [id number] to moderately decreased [id number] to severely decreased G4 15-29Severely decreased G5 <15Kidney failure The eGFR was calculated using the Chronic Kidney Disease Epidemiology Collaboration (CKD-EPI) equation. Interpretation is based on recommendations of the National Kidney Foundation-Kidney Disease Outcomes Quality Initiative (NKF-KDOQI) published in 2014. Specimen Plasma specimen Performing Organization Address [facility] Cent[facility]ode Phone Number [facility] DEPARTMENT OF PATHOLOGY [address] [place] [address] Partial thromboplastin time, activated (10/15/2018 12:36 PM CDT) Pathologist [facility] PTT 41.3 (H) 23.0 - 36.0 ELLIOTT MEHTA Comment: [facility] PTT therapeutic range for unfractionated heparin is HOSPITAL 61.0-112.0 seconds which corresponds to Anti-Xa 0.3-0.7 U/ml. Specimen Blood Performing Organization Address [facility] Cent[facility]ode Phone Number [facility] DEPARTMENT OF PATHOLOGY [address] [place] [address] Prothrombin time with INR (10/15/2018 12:36 PM CDT) Pathologist [facility] Prothrombin time 13.3 11.5 - 14.5 [facility] INR 1.0 [place] Comment: JANINE MANCILLA [facility] International Normalized Ratio (INR) is a [facility] monitoring tool for patients who are stable on oral anticoagulant therapy. An INR of 2.0-3.0 is suggested for deep vein thrombosis/pulmonary embolism. Specimen Blood Performing Organization Address [facility]/State/Zipcode Phone Number [facility] DEPARTMENT OF PATHOLOGY [address] [place] [address] AND [facility] [id number] [place] [address] HOSPITAL CBC with platelet and differential (10/15/2018 12:36 PM CDT) WBC 7.3 4.5 - 11.0 k/uL [facility] RBC 3.39 (L) 4.20 - 5.50 [facility] m/uL [facility] HGB 10.7 (L) 12.0 - 16.0 [facility] g/dL [facility] HCT 34.2 (L) 37.0 - 47.0 % [facility] MCV 100.9 (H) 82.0 - 100.0 fL [facility] MCH 31.6 27.0 - 34.0 pg [facility] MCHC 31.3 31.0 - 37.0 [facility] g/dL [facility] RDW - SD 51.3 37.0 - 55.0 fL [facility] MPV 10.6 6.9 - 11.0 fL [facility] Platelet count 236 150 - 400 K/uL [facility] Nucleated RBC 0.00 /100 WBC [facility] Neutrophils 63.8 39.0 - 69.0 % [facility] Lymphocytes 21.7 (L) 25.0 - 45.0 % [facility] Monocytes 10.5 (H) 0.0 - 10.0 % [facility] Eosinophils 3.3 0.0 - 5.0 % [facility] Basophils 0.4 0.0 - 1.0 % [facility] Immature granulocytes 0.3 0.0 - 1.0 % [facility] Specimen Blood Performing Organization Address City/State/Zipcode Phone Number [facility] DEPARTMENT OF PATHOLOGY [address] [place] [address] AND [facility] [id number] [place] [address] HOSPITAL Type and screen (10/15/2018 12:36 PM CDT) ABO grouping O [facility] Rh type POS [facility] Antibody screen (gel) NEG [facility] Specimen Blood Performing Organization Address City/State/Zipcode Phone Number [facility] DEPARTMENT OF PATHOLOGY [phone] [place] [address] Basic metabolic panel (10/15/2018 12:36 PM CDT) Sodium 138 135 - 148 mEq/L [facility] Potassium 4.6 3.5 - 5.0 mEq/L [facility] Chloride 99 98 - 112 mEq/L [facility] CO2 28 24 - 31 mEq/L [facility] Anion gap 11@ANIO 7 - 15 mEq/L [facility] BUN 56 (H) 8 - 23 mg/dL [facility] Creatinine 2.88 (H) 0.50 - 0.90 mg/dL [facility] Glucose 66 65 - 99 mg/dL [facility] Calcium 9.0 8.8 - 10.2 mg/dL [facility] Specimen Plasma specimen Performing Organization Address City/State/Zipcode Phone Number [facility] DEPARTMENT OF PATHOLOGY [id number] [place] [address] [place] [address] HOSPITAL after 11/06/2017 Insurance Payer Benefit Plan / Subscriber ID Effective Dates Phone Address Type Group MEDICARE MEDICARE PART A xxxxxxxxxx 2017-Present [place], [place] Medicare AND B Advance Directives Patient has advance care planning documents on file. For more information, please contact:[place] [address]
[2018-11-07] MEDS ORDERED: D50W 25 GM/50 ML SYRINGE IV ONE (09:20)
--- OUTSIDE RECORDS SUMMARY | 2018-11-07 09:22 | XMS REPORT ---
:1950 Author Organization [facility] Address [address] [place] [address] Care Team Providers Name Role Phone KATELYN [...] (BEAKER) (test 229 mg/dL 70-110 TESTED AT [address] qduu=0074) [place] [address] POCT-GLUCOSE [id number] 13:23:00 Test Item Value Reference Range Comments POC-GLUCOSE METER (BEAKER) 148 mg/dL 70-110 TESTED AT [address] (test exmz=8002) [place] [address] POCT-GLUCOSE [id number] 07:33:00 Test Item Value Reference Range Comments POC-GLUCOSE METER (BEAKER) 112 mg/dL 70-110 TESTED AT [address] (test cmnz=8665) [place] [address] BASIC METABOLIC [id number] 06:07:00 Test Item Value Reference Range Comments SODIUM (BEAKER) (test 132 meq/L 136-145 rlwm=573) POTASSIUM (BEAKER) (test 4.3 meq/L 3.5-5.1 jhrl=782) CHLORIDE (BEAKER) (test 97 meq/L 98-107 bbis=501) CO2 (BEAKER) (test 23 meq/L 22-29 vaxh=301) BLOOD UREA NITROGEN 45 mg/dL 7-21 (BEAKER) (test tbul=735) CREATININE (BEAKER) (test 3.43 mg/dL 0.57-1.25 ljnv=974) GLUCOSE RANDOM (BEAKER) 98 mg/dL 70-105 (test ywoy=988) CALCIUM (BEAKER) (test 9.0 mg/dL 8.4-10.2 wfsh=198) EGFR (BEAKER) (test 13 mL/min/1.73 sq m ESTIMATED GFR IS NOT axau=9608) ACCURATE CREATININE CLEARANCE IN PREDICTING GLOMERULAR FILTRATION RATE. ESTIMATED GFR IS NOT APPLICABLE FOR DIALYSIS PATIENTS. [id number] 06:03:00 Test Item Value Reference Range Comments MAGNESIUM (BEAKER) (test zinw=444) 1.8 mg/dL 1.6-2.6 CBC W/PLT COUNT & AUTO [id number] 05:46:00 Test Item Value Reference Range Comments WHITE BLOOD CELL COUNT (BEAKER) (test vukh=189) 9.9 K/ L 3.5-10.5 RED BLOOD CELL COUNT (BEAKER) (test bpsy=680) 3.01 M/ L 3.93-5.22 HEMOGLOBIN (BEAKER) (test avvl=116) 8.8 GM/DL 11.2-15.7 HEMATOCRIT (BEAKER) (test fxtd=653) 28.2 % 34.1-44.9 MEAN CORPUSCULAR VOLUME (BEAKER) (test mvce=898) 93.7 fL 79.4-94.8 MEAN CORPUSCULAR HEMOGLOBIN (BEAKER) (test 29.2 pg 25.6-32.2 hjho=234) MEAN CORPUSCULAR HEMOGLOBIN CONC (BEAKER) (test 31.2 GM/DL 32.2-35.5 yrqw=985) RED CELL DISTRIBUTION WIDTH (BEAKER) (test 15.8 % 11.7-14.4 htpg=654) PLATELET COUNT (BEAKER) (test ldnq=353) 298 K/CU MM 150-450 MEAN PLATELET VOLUME (BEAKER) (test jqvk=460) 11.1 fL 9.4-12.3 NUCLEATED RED BLOOD CELLS (BEAKER) (test 0 /100 WBC 0-0 spzj=403) NEUTROPHILS RELATIVE PERCENT (BEAKER) (test 62 % oqeq=555) LYMPHOCYTES RELATIVE PERCENT (BEAKER) (test 24 % cqdf=415) MONOCYTES RELATIVE PERCENT (BEAKER) (test 10 % xvjx=211) EOSINOPHILS RELATIVE PERCENT (BEAKER) (test 3 % vcco=633) BASOPHILS RELATIVE PERCENT (BEAKER) (test 1 % rmsr=615) NEUTROPHILS ABSOLUTE COUNT (BEAKER) (test 6.10 K/ L 1.56-6.13 rqxb=075) LYMPHOCYTES ABSOLUTE COUNT (BEAKER) (test 2.33 K/ L 1.18-3.74 yefs=334) MONOCYTES ABSOLUTE COUNT (BEAKER) (test 0.98 K/ L 0.24-0.36 iumq=880) EOSINOPHILS ABSOLUTE COUNT (BEAKER) (test 0.33 K/ L 0.04-0.36 paoo=964) BASOPHILS ABSOLUTE COUNT (BEAKER) (test 0.08 K/ L 0.01-0.08 tueb=549) IMMATURE GRANULOCYTES-RELATIVE PERCENT (BEAKER) 1 % 0-1 (test zqmk=6685) POCT-GLUCOSE [id number] 21:26:00 Test Item Value Reference Range Comments POC-GLUCOSE METER (BEAKER) 117 mg/dL 70-110 TESTED AT [address] (test lyvw=9373) [place] [address] POCT-GLUCOSE [id number] 16:18:00 Test Item Value Reference Range Comments POC-GLUCOSE METER (BEAKER) 72 mg/dL 70-110 TESTED AT [address] (test jnxn=6353) [place] [address] POCT-GLUCOSE [id number] 11:37:00 Test Item Value Reference Range Comments POC-GLUCOSE METER (BEAKER) 191 mg/dL 70-110 TESTED AT [address] (test oubq=3907) [place] [address] POCT-GLUCOSE [id number] 07:21:00 Test Item Value Reference Range Comments POC-GLUCOSE METER (BEAKER) 129 mg/dL 70-110 TESTED AT [address] (test tkpz=4090) [place] [address] BASIC METABOLIC [id number] 06:52:00 Test Item Value Reference Range Comments SODIUM (BEAKER) (test 137 meq/L 136-145 sylj=375) POTASSIUM (BEAKER) (test 4.2 meq/L 3.5-5.1 hyxf=954) CHLORIDE (BEAKER) (test 100 meq/L 98-107 aijm=121) CO2 (BEAKER) (test 29 meq/L 22-29 nbwd=965) BLOOD UREA NITROGEN 26 mg/dL 7-21 (BEAKER) (test lhfy=937) CREATININE (BEAKER) (test 2.31 mg/dL 0.57-1.25 tset=517) GLUCOSE RANDOM (BEAKER) 100 mg/dL 70-105 (test iggv=959) CALCIUM (BEAKER) (test 9.0 mg/dL 8.4-10.2 avtv=086) EGFR (BEAKER) (test 21 mL/min/1.73 sq m ESTIMATED GFR IS NOT wrmi=6644) ACCURATE CREATININE CLEARANCE IN PREDICTING GLOMERULAR FILTRATION RATE. ESTIMATED GFR IS NOT APPLICABLE FOR DIALYSIS PATIENTS. [id number] 06:47:00 Test Item Value Reference Range Comments MAGNESIUM (BEAKER) (test ebdt=502) 1.9 mg/dL 1.6-2.6 CBC W/PLT COUNT & AUTO [id number] 06:27:00 Test Item Value Reference Range Comments WHITE BLOOD CELL COUNT (BEAKER) (test mtnz=508) 8.1 K/ L 3.5-10.5 RED BLOOD CELL COUNT (BEAKER) (test vbka=568) 2.94 M/ L 3.93-5.22 HEMOGLOBIN (BEAKER) (test orbm=183) 8.7 GM/DL 11.2-15.7 HEMATOCRIT (BEAKER) (test xmdb=626) 27.5 % 34.1-44.9 MEAN CORPUSCULAR VOLUME (BEAKER) (test jvfx=565) 93.5 fL 79.4-94.8 MEAN CORPUSCULAR HEMOGLOBIN (BEAKER) (test 29.6 pg 25.6-32.2 ezhf=742) MEAN CORPUSCULAR HEMOGLOBIN CONC (BEAKER) (test 31.6 GM/DL 32.2-35.5 zooz=108) RED CELL DISTRIBUTION WIDTH (BEAKER) (test 15.8 % 11.7-14.4 hsus=569) PLATELET COUNT (BEAKER) (test evdu=346) 305 K/CU MM 150-450 MEAN PLATELET VOLUME (BEAKER) (test qjjf=518) 11.6 fL 9.4-12.3 NUCLEATED RED BLOOD CELLS (BEAKER) (test 0 /100 WBC 0-0 xnqe=011) NEUTROPHILS RELATIVE PERCENT (BEAKER) (test 63 % xmdc=739) LYMPHOCYTES RELATIVE PERCENT (BEAKER) (test 21 % jidr=497) MONOCYTES RELATIVE PERCENT (BEAKER) (test 12 % yymg=811) EOSINOPHILS RELATIVE PERCENT (BEAKER) (test 2 % puhb=712) BASOPHILS RELATIVE PERCENT (BEAKER) (test 1 % msdh=279) NEUTROPHILS ABSOLUTE COUNT (BEAKER) (test 5.13 K/ L 1.56-6.13 tjhv=645) LYMPHOCYTES ABSOLUTE COUNT (BEAKER) (test 1.72 K/ L 1.18-3.74 zree=113) MONOCYTES ABSOLUTE COUNT (BEAKER) (test 0.94 K/ L 0.24-0.36 ahnm=745) EOSINOPHILS ABSOLUTE COUNT (BEAKER) (test 0.19 K/ L 0.04-0.36 mlzw=754) BASOPHILS ABSOLUTE COUNT (BEAKER) (test 0.07 K/ L 0.01-0.08 fgjx=544) IMMATURE GRANULOCYTES-RELATIVE PERCENT (BEAKER) 1 % 0-1 (test gaut=3258) POCT-GLUCOSE [id number] 21:28:00 Test Item Value Reference Range Comments POC-GLUCOSE METER (BEAKER) 126 mg/dL 70-110 TESTED AT [address] (test jrtd=4606) [place] [id number] POCT-GLUCOSE [id number] 17:04:00 Test Item Value Reference Range Comments POC-GLUCOSE METER (BEAKER) 112 mg/dL 70-110 TESTED AT [address] (test olok=1509) [facility] [address] POCT-GLUCOSE [id number] 12:52:00 Test Item Value Reference Range Comments POC-GLUCOSE METER (BEAKER) 186 mg/dL 70-110 TESTED AT [address] (test daee=3789) [place] [id number] POCT-GLUCOSE [id number] 08:56:00 Test Item Value Reference Range Comments POC-GLUCOSE METER (BEAKER) 140 mg/dL 70-110 TESTED AT [address] (test ehjv=6032) [facility] [address] BASIC METABOLIC [id number] 07:35:00 Test Item Value Reference Range Comments SODIUM (BEAKER) (test 131 meq/L 136-145 qjyt=803) POTASSIUM (BEAKER) (test 4.8 meq/L 3.5-5.1 ciih=900) CHLORIDE (BEAKER) (test 97 meq/L 98-107 vghk=324) CO2 (BEAKER) (test 24 meq/L 22-29 aihi=420) BLOOD UREA NITROGEN 56 mg/dL 7-21 (BEAKER) (test ylvn=097) CREATININE (BEAKER) (test 3.78 mg/dL 0.57-1.25 bdnk=146) GLUCOSE RANDOM (BEAKER) 107 mg/dL 70-105 (test oybo=672) CALCIUM (BEAKER) (test 8.8 mg/dL 8.4-10.2 kjoh=825) EGFR (BEAKER) (test 12 mL/min/1.73 sq m ESTIMATED GFR IS NOT btga=1555) ACCURATE CREATININE CLEARANCE IN PREDICTING GLOMERULAR FILTRATION RATE. ESTIMATED GFR IS NOT APPLICABLE FOR DIALYSIS PATIENTS. [id number] 07:29:00 Test Item Value Reference Range Comments MAGNESIUM (BEAKER) (test cpjc=552) 1.8 mg/dL 1.6-2.6 CBC W/PLT COUNT & AUTO [id number] 06:52:00 Test Item Value Reference Range Comments WHITE BLOOD CELL COUNT (BEAKER) (test foev=640) 8.2 K/ L 3.5-10.5 RED BLOOD CELL COUNT (BEAKER) (test ajzj=871) 2.88 M/ L 3.93-5.22 HEMOGLOBIN (BEAKER) (test onsd=565) 8.3 GM/DL 11.2-15.7 HEMATOCRIT (BEAKER) (test ertl=242) 27.1 % 34.1-44.9 MEAN CORPUSCULAR VOLUME (BEAKER) (test tpbg=927) 94.1 fL 79.4-94.8 MEAN CORPUSCULAR HEMOGLOBIN (BEAKER) (test 28.8 pg 25.6-32.2 ucwb=110) MEAN CORPUSCULAR HEMOGLOBIN CONC (BEAKER) (test 30.6 GM/DL 32.2-35.5 jdwy=655) RED CELL DISTRIBUTION WIDTH (BEAKER) (test 15.8 % 11.7-14.4 kchd=506) PLATELET COUNT (BEAKER) (test fvvm=987) 299 K/CU MM 150-450 MEAN PLATELET VOLUME (BEAKER) (test bxfm=010) 11.5 fL 9.4-12.3 NUCLEATED RED BLOOD CELLS (BEAKER) (test 0 /100 WBC 0-0 lgvr=923) NEUTROPHILS RELATIVE PERCENT (BEAKER) (test 55 % gcbw=967) LYMPHOCYTES RELATIVE PERCENT (BEAKER) (test 27 % gaqa=254) MONOCYTES RELATIVE PERCENT (BEAKER) (test 13 % wtlq=617) EOSINOPHILS RELATIVE PERCENT (BEAKER) (test 4 % jcyx=013) BASOPHILS RELATIVE PERCENT (BEAKER) (test 1 % kwih=778) NEUTROPHILS ABSOLUTE COUNT (BEAKER) (test 4.50 K/ L 1.56-6.13 xvug=217) LYMPHOCYTES ABSOLUTE COUNT (BEAKER) (test 2.20 K/ L 1.18-3.74 vdth=586) MONOCYTES ABSOLUTE COUNT (BEAKER) (test 1.08 K/ L 0.24-0.36 zkhq=315) EOSINOPHILS ABSOLUTE COUNT (BEAKER) (test 0.30 K/ L 0.04-0.36 febl=222) BASOPHILS ABSOLUTE COUNT (BEAKER) (test 0.06 K/ L 0.01-0.08 bniw=134) IMMATURE GRANULOCYTES-RELATIVE PERCENT (BEAKER) 1 % 0-1 (test rjxe=6527) POCT-GLUCOSE [id number] 20:55:00 Test Item Value Reference Range Comments POC-GLUCOSE METER (BEAKER) 125 mg/dL 70-110 TESTED AT [address] (test tfwq=7839) [place] [address] POCT-GLUCOSE [id number] 17:18:00 Test Item Value Reference Range Comments POC-GLUCOSE METER (BEAKER) 121 mg/dL 70-110 TESTED AT [address] (test drhz=0427) [place] [address] POCT-GLUCOSE [id number] 10:40:00 Test Item Value Reference Range Comments POC-GLUCOSE METER (BEAKER) 187 mg/dL 70-110 TESTED AT [address] (test zuxa=0993) [place] [address] BASIC METABOLIC [id number] 07:02:00 Test Item Value Reference Range Comments SODIUM (BEAKER) (test 133 meq/L 136-145 jrfi=973) POTASSIUM (BEAKER) (test 4.6 meq/L 3.5-5.1 vohe=285) CHLORIDE (BEAKER) (test 98 meq/L 98-107 saqs=302) CO2 (BEAKER) (test 25 meq/L 22-29 ktdn=357) BLOOD UREA NITROGEN 41 mg/dL 7-21 (BEAKER) (test miel=541) CREATININE (BEAKER) (test 2.98 mg/dL 0.57-1.25 ncro=875) GLUCOSE RANDOM (BEAKER) 131 mg/dL 70-105 (test yvzu=234) CALCIUM (BEAKER) (test 9.0 mg/dL 8.4-10.2 ubbl=545) EGFR (BEAKER) (test 16 mL/min/1.73 sq m ESTIMATED GFR IS NOT jmrb=3870) ACCURATE CREATININE CLEARANCE IN PREDICTING GLOMERULAR FILTRATION RATE. ESTIMATED GFR IS NOT APPLICABLE FOR DIALYSIS PATIENTS. POCT-GLUCOSE [id number] 06:53:00 Test Item Value Reference Range Comments POC-GLUCOSE METER (BEAKER) 145 mg/dL 70-[address] [facility] [address] [facility] (test ijfp=8758) [facility] [address] CALCIUM, [id number] 06:50:00 Test Item Value Reference Range Comments CALCIUM IONIZED (BEAKER) (test qgwe=046) 1.03 mmol/L 1.12-1.27 PH, BLOOD (BEAKER) (test xtcx=9985) 7.53 [id number] 06:47:00 Test Item Value Reference Range Comments PHOSPHORUS (BEAKER) (test jarx=854) 4.1 mg/dL 2.3-4.7 [id number] 06:47:00 Test Item Value Reference Range Comments MAGNESIUM (BEAKER) (test nzxw=474) 1.8 mg/dL 1.6-2.6 CBC W/PLT COUNT & AUTO [id number] 06:27:00 Test Item Value Reference Range Comments WHITE BLOOD CELL COUNT (BEAKER) (test zlqe=519) 7.9 K/ L 3.5-10.5 RED BLOOD CELL COUNT (BEAKER) (test yobu=493) 3.17 M/ L 3.93-5.22 HEMOGLOBIN (BEAKER) (test bohe=202) 9.3 GM/DL 11.2-15.7 HEMATOCRIT (BEAKER) (test wbot=796) 28.8 % 34.1-44.9 MEAN CORPUSCULAR VOLUME (BEAKER) (test sylu=827) 90.9 fL 79.4-94.8 MEAN CORPUSCULAR HEMOGLOBIN (BEAKER) (test 29.3 pg 25.6-32.2 fbhp=826) MEAN CORPUSCULAR HEMOGLOBIN CONC (BEAKER) (test 32.3 GM/DL 32.2-35.5 bzcc=382) RED CELL DISTRIBUTION WIDTH (BEAKER) (test 15.5 % 11.7-14.4 alur=514) PLATELET COUNT (BEAKER) (test emlv=199) 328 K/CU MM 150-450 MEAN PLATELET VOLUME (BEAKER) (test iwpw=315) 11.5 fL 9.4-12.3 NUCLEATED RED BLOOD CELLS (BEAKER) (test 0 /100 WBC 0-0 nzvq=815) NEUTROPHILS RELATIVE PERCENT (BEAKER) (test 69 % xgpv=414) LYMPHOCYTES RELATIVE PERCENT (BEAKER) (test 17 % oqhk=719) MONOCYTES RELATIVE PERCENT (BEAKER) (test 11 % juww=298) EOSINOPHILS RELATIVE PERCENT (BEAKER) (test 1 % mzua=909) BASOPHILS RELATIVE PERCENT (BEAKER) (test 1 % gmhv=597) NEUTROPHILS ABSOLUTE COUNT (BEAKER) (test 5.48 K/ L 1.56-6.13 egmz=379) LYMPHOCYTES ABSOLUTE COUNT (BEAKER) (test 1.33 K/ L 1.18-3.74 cpiu=366) MONOCYTES ABSOLUTE COUNT (BEAKER) (test 0.90 K/ L 0.24-0.36 zvkl=610) EOSINOPHILS ABSOLUTE COUNT (BEAKER) (test 0.11 K/ L 0.04-0.36 htes=438) BASOPHILS ABSOLUTE COUNT (BEAKER) (test 0.04 K/ L 0.01-0.08 opeu=666) IMMATURE GRANULOCYTES-RELATIVE PERCENT (BEAKER) 1 % 0-1 (test ekod=4643) POCT-GLUCOSE [id number] 23:08:00 Test Item Value Reference Range Comments POC-GLUCOSE METER (BEAKER) 189 mg/dL 70-[address] [facility] [address] (test zdna=1240) [facility] [address] ANG, TUNNELED CATHETER [id number] 14:52:00Reason for exam:-> Tunneled hemodialysis catheter insertionFINAL [...] real time ultrasound guidance. Images were stored onSmart Cube. Fluoroscopic assistance was then provided to place a catheter that was tunneled subcutaneouslyalong the right anterior chest. The tip of the catheter was positioned in the right atrium. The patient tolerated the procedure well without difficulty. Estimated blood loss was 10 ml . Conclusion: Placement of tunneled hemodialysis catheter. Signed: Carrie Quinteros [facility] Verified Date/Time: 06/04/2018 14:52:23 Reading Location: [place] [address] Angio Body Reading Room HEPATITIS B [id number] 12:38:00 Test Item Value Reference Range Comments HEPATITIS B CORE TOTAL ANTIBODY (BEAKER) (test Nonreactive Nonreactive bzuy=866) HEPATITIS B SURFACE ANTIBODY (BEAKER) (test 18.1 mIU/mL <8.0 jdvt=978) HEPATITIS B SURFACE ANTIGEN (2) (BEAKER) (test Nonreactive Nonreactive otxz=3454) POCT-GLUCOSE [id number] 12:14:00 Test Item Value Reference Range Comments POC-GLUCOSE METER (BEAKER) 141 mg/dL 70-[address] [facility] [address] [facility] (test quhc=9366) [facility] [address] PROTHROMBIN [id number] 10:32:00 Test Item Value Reference Range Comments PROTIME (BEAKER) (test sjka=963) 14.6 seconds 11.7-14.7 INR (BEAKER) (test asmx=403) 1.1 <=5.9 RECOMMENDED COUMADIN/WARFARIN INR THERAPY RANGESSTANDARD DOSE: 2.0 - 3.0 Includes: PROPHYLAXIS forvenous thrombosis, systemic embolization; TREATMENT for venous thrombosis and/or pulmonary embolus.HIGH RISK: Target INR is 2.5-3.5 for patients with mechanical heart valves.POCT-GLUCOSE [id number] 08:51:00 Test Item Value Reference Range Comments POC-GLUCOSE METER (BEAKER) 153 mg/dL 70-[address] [facility] [address] [facility] (test epfl=5742) [facility] [address] BASIC METABOLIC [id number] 04:51:00 Test Item Value Reference Range Comments SODIUM (BEAKER) (test 131 meq/L 136-145 cnhb=222) POTASSIUM (BEAKER) (test 5.3 meq/L 3.5-5.1 kovc=807) CHLORIDE (BEAKER) (test 96 meq/L 98-107 zdta=666) CO2 (BEAKER) (test 21 meq/L 22-29 arpo=731) BLOOD UREA NITROGEN 91 mg/dL 7-21 (BEAKER) (test obhi=421) CREATININE (BEAKER) (test 5.00 mg/dL 0.57-1.25 qijo=230) GLUCOSE RANDOM (BEAKER) 120 mg/dL 70-105 (test qfxd=631) CALCIUM (BEAKER) (test 8.8 mg/dL 8.4-10.2 hixn=244) EGFR (BEAKER) (test 9 mL/min/1.73 sq m ESTIMATED GFR IS NOT klbu=5804) ACCURATE CREATININE CLEARANCE IN PREDICTING GLOMERULAR FILTRATION RATE. ESTIMATED GFR IS NOT APPLICABLE FOR DIALYSIS PATIENTS. [id number] 04:49:00 Test Item Value Reference Range Comments MAGNESIUM (BEAKER) (test wmuw=318) 1.8 mg/dL 1.6-2.6 CBC W/PLT COUNT & AUTO [id number] 04:29:00 Test Item Value Reference Range Comments WHITE BLOOD CELL COUNT (BEAKER) (test jrjg=926) 8.9 K/ L 3.5-10.5 RED BLOOD CELL COUNT (BEAKER) (test rtnh=000) 2.70 M/ L 3.93-5.22 HEMOGLOBIN (BEAKER) (test ajrr=873) 7.8 GM/DL 11.2-15.7 HEMATOCRIT (BEAKER) (test qkfo=104) 24.4 % 34.1-44.9 MEAN CORPUSCULAR VOLUME (BEAKER) (test dorb=835) 90.4 fL 79.4-94.8 MEAN CORPUSCULAR HEMOGLOBIN (BEAKER) (test 28.9 pg 25.6-32.2 iahz=221) MEAN CORPUSCULAR HEMOGLOBIN CONC (BEAKER) (test 32.0 GM/DL 32.2-35.5 pnbf=227) RED CELL DISTRIBUTION WIDTH (BEAKER) (test 15.2 % 11.7-14.4 pknq=173) PLATELET COUNT (BEAKER) (test mbtn=480) 312 K/CU MM 150-450 MEAN PLATELET VOLUME (BEAKER) (test tohf=636) 11.9 fL 9.4-12.3 NUCLEATED RED BLOOD CELLS (BEAKER) (test 0 /100 WBC 0-0 hitp=486) NEUTROPHILS RELATIVE PERCENT (BEAKER) (test 62 % ryeu=491) LYMPHOCYTES RELATIVE PERCENT (BEAKER) (test 23 % khtd=565) MONOCYTES RELATIVE PERCENT (BEAKER) (test 10 % rfwm=233) EOSINOPHILS RELATIVE PERCENT (BEAKER) (test 5 % ekzy=172) BASOPHILS RELATIVE PERCENT (BEAKER) (test 1 % krjt=805) NEUTROPHILS ABSOLUTE COUNT (BEAKER) (test 5.48 K/ L 1.56-6.13 qrue=847) LYMPHOCYTES ABSOLUTE COUNT (BEAKER) (test 2.02 K/ L 1.18-3.74 ckti=177) MONOCYTES ABSOLUTE COUNT (BEAKER) (test 0.86 K/ L 0.24-0.36 tnyz=671) EOSINOPHILS ABSOLUTE COUNT (BEAKER) (test 0.41 K/ L 0.04-0.36 xjue=822) BASOPHILS ABSOLUTE COUNT (BEAKER) (test 0.06 K/ L 0.01-0.08 bbtf=949) IMMATURE GRANULOCYTES-RELATIVE PERCENT (BEAKER) 1 % 0-1 (test uufd=1844) POCT-GLUCOSE [id number] 22:21:00 Test Item Value Reference Range Comments POC-GLUCOSE METER (BEAKER) 96 mg/dL 70-[address] [facility] [address] [facility] (test zylm=2381) [facility] [address] POCT-GLUCOSE [id number] 17:52:00 Test Item Value Reference Range Comments POC-GLUCOSE METER (BEAKER) 154 mg/dL 70-[address] [facility] [address] [facility] (test mxxo=2234) [facility] [address] POCT-GLUCOSE [id number] 12:20:00 Test Item Value Reference Range Comments POC-GLUCOSE METER (BEAKER) 120 mg/dL 70-110 TESTED AT [address] (test ddec=5225) [facility] [address] POCT-GLUCOSE [id number] 08:55:00 Test Item Value Reference Range Comments POC-GLUCOSE METER (BEAKER) 123 mg/dL 70-110 TESTED AT [address] (test zbpo=8365) [facility] [address] BASIC METABOLIC [id number] 06:54:00 Test Item Value Reference Range Comments SODIUM (BEAKER) (test 131 meq/L 136-145 bulg=289) POTASSIUM (BEAKER) (test 4.8 meq/L 3.5-5.1 stnx=646) CHLORIDE (BEAKER) (test 97 meq/L 98-107 qrch=938) CO2 (BEAKER) (test 21 meq/L 22-29 dbvv=981) BLOOD UREA NITROGEN 70 mg/dL 7-21 (BEAKER) (test pasf=863) CREATININE (BEAKER) (test 4.49 mg/dL 0.57-1.25 mnxj=311) GLUCOSE RANDOM (BEAKER) 120 mg/dL 70-105 (test xjtl=473) CALCIUM (BEAKER) (test 8.5 mg/dL 8.4-10.2 oauv=657) EGFR (BEAKER) (test 10 mL/min/1.73 sq m ESTIMATED GFR IS NOT mvkv=8958) ACCURATE CREATININE CLEARANCE IN PREDICTING GLOMERULAR FILTRATION RATE. ESTIMATED GFR IS NOT APPLICABLE FOR DIALYSIS PATIENTS. [id number] 06:31:00 Test Item Value Reference Range Comments MAGNESIUM (BEAKER) (test rxvr=558) 1.7 mg/dL 1.6-2.6 CBC W/PLT COUNT & AUTO [id number] 05:08:00 Test Item Value Reference Range Comments WHITE BLOOD CELL COUNT (BEAKER) (test jezv=852) 11.2 K/ L 3.5-10.5 RED BLOOD CELL COUNT (BEAKER) (test exqa=679) 2.74 M/ L 3.93-5.22 HEMOGLOBIN (BEAKER) (test ulxr=985) 8.0 GM/DL 11.2-15.7 HEMATOCRIT (BEAKER) (test owdk=631) 25.1 % 34.1-44.9 MEAN CORPUSCULAR VOLUME (BEAKER) (test fkag=422) 91.6 fL 79.4-94.8 MEAN CORPUSCULAR HEMOGLOBIN (BEAKER) (test 29.2 pg 25.6-32.2 qmtj=897) MEAN CORPUSCULAR HEMOGLOBIN CONC (BEAKER) (test 31.9 GM/DL 32.2-35.5 bgxa=951) RED CELL DISTRIBUTION WIDTH (BEAKER) (test 15.4 % 11.7-14.4 qisz=551) PLATELET COUNT (BEAKER) (test wyyo=946) 310 K/CU MM 150-450 MEAN PLATELET VOLUME (BEAKER) (test assh=668) 11.5 fL 9.4-12.3 NUCLEATED RED BLOOD CELLS (BEAKER) (test 0 /100 WBC 0-0 xzpz=989) NEUTROPHILS RELATIVE PERCENT (BEAKER) (test 64 % feoz=567) LYMPHOCYTES RELATIVE PERCENT (BEAKER) (test 22 % sxer=155) MONOCYTES RELATIVE PERCENT (BEAKER) (test 11 % ahxf=385) EOSINOPHILS RELATIVE PERCENT (BEAKER) (test 3 % gtmn=216) BASOPHILS RELATIVE PERCENT (BEAKER) (test 1 % pwfh=850) NEUTROPHILS ABSOLUTE COUNT (BEAKER) (test 7.10 K/ L 1.56-6.13 eacj=924) LYMPHOCYTES ABSOLUTE COUNT (BEAKER) (test 2.42 K/ L 1.18-3.74 nelm=297) MONOCYTES ABSOLUTE COUNT (BEAKER) (test 1.18 K/ L 0.24-0.36 myza=840) EOSINOPHILS ABSOLUTE COUNT (BEAKER) (test 0.29 K/ L 0.04-0.36 mhsb=170) BASOPHILS ABSOLUTE COUNT (BEAKER) (test 0.06 K/ L 0.01-0.08 rcnc=762) IMMATURE GRANULOCYTES-RELATIVE PERCENT (BEAKER) 1 % 0-1 (test vtot=7521) POCT-GLUCOSE [id number] 20:53:00 Test Item Value Reference Range Comments POC-GLUCOSE METER (BEAKER) 307 mg/dL 70-110 Notified SAMAN HERNANDEZ/TESTED AT [facility] (test tnzn=1951) [address] [facility] [address] POCT-GLUCOSE [id number] 16:48:00 Test Item Value Reference Range Comments POC-GLUCOSE METER (BEAKER) 262 mg/dL 70-110 TESTED AT [address] (test wghm=8583) [facility] [address] POCT-GLUCOSE [id number] 15:33:00 Test Item Value Reference Range Comments POC-GLUCOSE METER (BEAKER) 204 mg/dL 70-110 TESTED AT [address] (test jvhy=7320) [facility] [address] POCT-GLUCOSE [id number] 08:38:00 Test Item Value Reference Range Comments POC-GLUCOSE METER (BEAKER) 143 mg/dL 70-110 TESTED AT [address] (test mthi=7379) [facility] [address] BASIC METABOLIC [id number] 04:30:00 Test Item Value Reference Range Comments SODIUM (BEAKER) (test 134 meq/L 136-145 nzoj=587) POTASSIUM (BEAKER) (test 4.3 meq/L 3.5-5.1 fqap=465) CHLORIDE (BEAKER) (test 98 meq/L 98-107 zhtn=679) CO2 (BEAKER) (test 25 meq/L 22-29 vozb=833) BLOOD UREA NITROGEN 51 mg/dL 7-21 (BEAKER) (test lajx=819) CREATININE (BEAKER) (test 3.85 mg/dL 0.57-1.25 glhw=231) GLUCOSE RANDOM (BEAKER) 133 mg/dL 70-105 (test puiu=258) CALCIUM (BEAKER) (test 8.7 mg/dL 8.4-10.2 howh=107) EGFR (BEAKER) (test 12 mL/min/1.73 sq m ESTIMATED GFR IS NOT ummw=6088) ACCURATE CREATININE CLEARANCE IN PREDICTING GLOMERULAR FILTRATION RATE. ESTIMATED GFR IS NOT APPLICABLE FOR DIALYSIS PATIENTS. [id number] 04:16:00 Test Item Value Reference Range Comments MAGNESIUM (BEAKER) (test rquz=162) 1.8 mg/dL 1.6-2.6 CBC W/PLT COUNT & AUTO [id number] 03:57:00 Test Item Value Reference Range Comments WHITE BLOOD CELL COUNT (BEAKER) (test lxsr=660) 10.3 K/ L 3.5-10.5 RED BLOOD CELL COUNT (BEAKER) (test fpgw=882) 2.83 M/ L 3.93-5.22 HEMOGLOBIN (BEAKER) (test xotx=092) 8.2 GM/DL 11.2-15.7 HEMATOCRIT (BEAKER) (test nirj=072) 26.0 % 34.1-44.9 MEAN CORPUSCULAR VOLUME (BEAKER) (test etcg=883) 91.9 fL 79.4-94.8 MEAN CORPUSCULAR HEMOGLOBIN (BEAKER) (test 29.0 pg 25.6-32.2 olpb=666) MEAN CORPUSCULAR HEMOGLOBIN CONC (BEAKER) (test 31.5 GM/DL 32.2-35.5 vdoa=271) RED CELL DISTRIBUTION WIDTH (BEAKER) (test 15.2 % 11.7-14.4 ocec=363) PLATELET COUNT (BEAKER) (test txuj=809) 357 K/CU MM 150-450 MEAN PLATELET VOLUME (BEAKER) (test qfkj=407) 11.5 fL 9.4-12.3 NUCLEATED RED BLOOD CELLS (BEAKER) (test 0 /100 WBC 0-0 qyct=774) NEUTROPHILS RELATIVE PERCENT (BEAKER) (test 65 % uqqo=457) LYMPHOCYTES RELATIVE PERCENT (BEAKER) (test 21 % qyaq=153) MONOCYTES RELATIVE PERCENT (BEAKER) (test 10 % eani=224) EOSINOPHILS RELATIVE PERCENT (BEAKER) (test 2 % jttv=484) BASOPHILS RELATIVE PERCENT (BEAKER) (test 1 % iqsb=572) NEUTROPHILS ABSOLUTE COUNT (BEAKER) (test 6.67 K/ L 1.56-6.13 sjpy=752) LYMPHOCYTES ABSOLUTE COUNT (BEAKER) (test 2.19 K/ L 1.18-3.74 asay=291) MONOCYTES ABSOLUTE COUNT (BEAKER) (test 1.05 K/ L 0.24-0.36 shgw=897) EOSINOPHILS ABSOLUTE COUNT (BEAKER) (test 0.25 K/ L 0.04-0.36 taco=939) BASOPHILS ABSOLUTE COUNT (BEAKER) (test 0.07 K/ L 0.01-0.08 zxqw=728) IMMATURE GRANULOCYTES-RELATIVE PERCENT (BEAKER) 1 % 0-1 (test dsnt=2500) POCT-GLUCOSE [id number] 21:00:00 Test Item Value Reference Range Comments POC-GLUCOSE METER (BEAKER) 286 mg/dL 70-110 TESTED AT [address] (test ppoq=0055) [place] [id number] POCT-GLUCOSE [id number] 20:08:00 Test Item Value Reference Range Comments POC-GLUCOSE METER (BEAKER) 317 mg/dL 70-110 TESTED AT [address] (test vzoo=1757) [place] [id number] POCT-GLUCOSE [id number] 11:48:00 Test Item Value Reference Range Comments POC-GLUCOSE METER (BEAKER) 249 mg/dL 70-110 TESTED AT [address] (test vvsm=4750) [place] [id number] POCT-GLUCOSE [id number] 08:11:00 Test Item Value Reference Range Comments POC-GLUCOSE METER (BEAKER) 236 mg/dL 70-110 TESTED AT [address] (test hxkq=9761) [place] [address] [id number] 06:57:00 Test Item Value Reference Range Comments MAGNESIUM (BEAKER) (test ldlk=039) 1.9 mg/dL 1.6-2.6 BASIC METABOLIC [id number] 06:57:00 Test Item Value Reference Range Comments SODIUM (BEAKER) (test 135 meq/L 136-145 ygyr=207) POTASSIUM (BEAKER) (test 4.1 meq/L 3.5-5.1 prhb=553) CHLORIDE (BEAKER) (test 99 meq/L 98-107 cvdz=053) CO2 (BEAKER) (test 25 meq/L 22-29 pddk=362) BLOOD UREA NITROGEN 26 mg/dL 7-21 (BEAKER) (test mhlh=881) CREATININE (BEAKER) (test 2.97 mg/dL 0.57-1.25 nbnu=825) GLUCOSE RANDOM (BEAKER) 226 mg/dL 70-105 (test wknd=942) CALCIUM (BEAKER) (test 8.6 mg/dL 8.4-10.2 hitd=541) EGFR (BEAKER) (test 16 mL/min/1.73 sq m ESTIMATED GFR IS NOT bvax=7628) ACCURATE CREATININE CLEARANCE IN PREDICTING GLOMERULAR FILTRATION RATE. ESTIMATED GFR IS NOT APPLICABLE FOR DIALYSIS PATIENTS. CBC W/PLT COUNT & AUTO [id number] 06:34:00 Test Item Value Reference Range Comments WHITE BLOOD CELL COUNT (BEAKER) (test ttnn=452) 9.8 K/ L 3.5-10.5 RED BLOOD CELL COUNT (BEAKER) (test jhgt=592) 2.89 M/ L 3.93-5.22 HEMOGLOBIN (BEAKER) (test xtwc=077) 8.5 GM/DL 11.2-15.7 HEMATOCRIT (BEAKER) (test ulsl=462) 26.8 % 34.1-44.9 MEAN CORPUSCULAR VOLUME (BEAKER) (test yspg=352) 92.7 fL 79.4-94.8 MEAN CORPUSCULAR HEMOGLOBIN (BEAKER) (test 29.4 pg 25.6-32.2 kzca=144) MEAN CORPUSCULAR HEMOGLOBIN CONC (BEAKER) (test 31.7 GM/DL 32.2-35.5 pqtu=478) RED CELL DISTRIBUTION WIDTH (BEAKER) (test 15.2 % 11.7-14.4 gmoc=836) PLATELET COUNT (BEAKER) (test pcgb=994) 348 K/CU MM 150-450 MEAN PLATELET VOLUME (BEAKER) (test psnt=720) 11.7 fL 9.4-12.3 NUCLEATED RED BLOOD CELLS (BEAKER) (test 0 /100 WBC 0-0 zeas=387) NEUTROPHILS RELATIVE PERCENT (BEAKER) (test 72 % voqr=470) LYMPHOCYTES RELATIVE PERCENT (BEAKER) (test 16 % buoq=397) MONOCYTES RELATIVE PERCENT (BEAKER) (test 9 % gvfl=240) EOSINOPHILS RELATIVE PERCENT (BEAKER) (test 2 % beto=766) BASOPHILS RELATIVE PERCENT (BEAKER) (test 1 % vrvj=223) NEUTROPHILS ABSOLUTE COUNT (BEAKER) (test 7.03 K/ L 1.56-6.13 zbpy=445) LYMPHOCYTES ABSOLUTE COUNT (BEAKER) (test 1.56 K/ L 1.18-3.74 ljpl=235) MONOCYTES ABSOLUTE COUNT (BEAKER) (test 0.88 K/ L 0.24-0.36 jlqf=925) EOSINOPHILS ABSOLUTE COUNT (BEAKER) (test 0.17 K/ L 0.04-0.36 ujau=769) BASOPHILS ABSOLUTE COUNT (BEAKER) (test 0.05 K/ L 0.01-0.08 rjnq=584) IMMATURE GRANULOCYTES-RELATIVE PERCENT (BEAKER) 1 % 0-1 (test czfa=5194) POCT-GLUCOSE [id number] 21:44:00 Test Item Value Reference Range Comments POC-GLUCOSE METER (BEAKER) 220 mg/dL 70-110 TESTED AT [address] (test sdkd=8004) [place] [id number] POCT-GLUCOSE [id number] 17:01:00 Test Item Value Reference Range Comments POC-GLUCOSE METER (BEAKER) 272 mg/dL 70-110 TESTED AT [address] (test wfrn=7774) [place] [id number] POCT-GLUCOSE [id number] 13:06:00 Test Item Value Reference Range Comments POC-GLUCOSE METER (BEAKER) 323 mg/dL 70-110 Notified SAMAN HERNANDEZ/TESTED AT [facility] (test ngjz=6721) [address] [place] [address] POCT-GLUCOSE [id number] 07:30:00 Test Item Value Reference Range Comments POC-GLUCOSE METER (BEAKER) 284 mg/dL 70-110 TESTED AT [address] (test vqzy=8179) [place] [id number] BASIC METABOLIC [id number] 06:58:00 Test Item Value Reference Range Comments SODIUM (BEAKER) (test 132 meq/L 136-145 wdjn=070) POTASSIUM (BEAKER) (test 4.0 meq/L 3.5-5.1 fdyq=465) CHLORIDE (BEAKER) (test 95 meq/L 98-107 xpqu=435) CO2 (BEAKER) (test 25 meq/L 22-29 osjd=075) BLOOD UREA NITROGEN 45 mg/dL 7-21 (BEAKER) (test ywls=194) CREATININE (BEAKER) (test 4.37 mg/dL 0.57-1.25 bwgx=927) GLUCOSE RANDOM (BEAKER) 136 mg/dL 70-105 (test vwzu=252) CALCIUM (BEAKER) (test 9.2 mg/dL 8.4-10.2 ghhj=831) EGFR (BEAKER) (test 10 mL/min/1.73 sq m ESTIMATED GFR IS NOT qvop=9643) ACCURATE CREATININE CLEARANCE IN PREDICTING GLOMERULAR FILTRATION RATE. ESTIMATED GFR IS NOT APPLICABLE FOR DIALYSIS PATIENTS. [id number] 06:56:00 Test Item Value Reference Range Comments MAGNESIUM (BEAKER) (test ursh=606) 1.8 mg/dL 1.6-2.6 CBC W/PLT COUNT & AUTO [id number] 06:39:00 Test Item Value Reference Range Comments WHITE BLOOD CELL COUNT (BEAKER) (test hxor=580) 10.9 K/ L 3.5-10.5 RED BLOOD CELL COUNT (BEAKER) (test hpoz=767) 2.94 M/ L 3.93-5.22 HEMOGLOBIN (BEAKER) (test zluh=938) 8.7 GM/DL 11.2-15.7 HEMATOCRIT (BEAKER) (test uxqx=206) 27.2 % 34.1-44.9 MEAN CORPUSCULAR VOLUME (BEAKER) (test tlmy=615) 92.5 fL 79.4-94.8 MEAN CORPUSCULAR HEMOGLOBIN (BEAKER) (test 29.6 pg 25.6-32.2 sdmt=252) MEAN CORPUSCULAR HEMOGLOBIN CONC (BEAKER) (test 32.0 GM/DL 32.2-35.5 sivx=127) RED CELL DISTRIBUTION WIDTH (BEAKER) (test 15.7 % 11.7-14.4 wfvp=818) PLATELET COUNT (BEAKER) (test yiwb=435) 385 K/CU MM 150-450 MEAN PLATELET VOLUME (BEAKER) (test wohf=018) 11.3 fL 9.4-12.3 NUCLEATED RED BLOOD CELLS (BEAKER) (test 0 /100 WBC 0-0 lbrk=770) NEUTROPHILS RELATIVE PERCENT (BEAKER) (test 63 % fxbs=160) LYMPHOCYTES RELATIVE PERCENT (BEAKER) (test 21 % lmhl=768) MONOCYTES RELATIVE PERCENT (BEAKER) (test 11 % ulza=227) EOSINOPHILS RELATIVE PERCENT (BEAKER) (test 4 % sevj=916) BASOPHILS RELATIVE PERCENT (BEAKER) (test 1 % hmii=515) NEUTROPHILS ABSOLUTE COUNT (BEAKER) (test 6.86 K/ L 1.56-6.13 vgef=311) LYMPHOCYTES ABSOLUTE COUNT (BEAKER) (test 2.29 K/ L 1.18-3.74 zeot=159) MONOCYTES ABSOLUTE COUNT (BEAKER) (test 1.15 K/ L 0.24-0.36 ydwy=233) EOSINOPHILS ABSOLUTE COUNT (BEAKER) (test 0.43 K/ L 0.04-0.36 zken=052) BASOPHILS ABSOLUTE COUNT (BEAKER) (test 0.09 K/ L 0.01-0.08 yvpf=918) IMMATURE GRANULOCYTES-RELATIVE PERCENT (BEAKER) 1 % 0-1 (test znpb=3909) POCT-GLUCOSE [id number] 21:19:00 Test Item Value Reference Range Comments POC-GLUCOSE METER (BEAKER) 326 mg/dL 70-[address] [facility] [address] [place] [address] (test mccx=8205) [facility] [address] POCT-GLUCOSE [id number] 17:23:00 Test Item Value Reference Range Comments POC-GLUCOSE METER (BEAKER) 357 mg/dL 70-110 Notified SAMAN HERNANDEZ/TESTED AT [facility] (test wydg=2163) [address] [place] [address] BASIC METABOLIC [id number] 04:34:00 Test Item Value Reference Range Comments SODIUM (BEAKER) (test 140 meq/L 136-145 bhoi=352) POTASSIUM (BEAKER) (test 4.3 meq/L 3.5-5.1 Specimen slightly wjhl=961) hemolyzed CHLORIDE (BEAKER) (test 101 meq/L 98-107 jzyo=816) CO2 (BEAKER) (test 28 meq/L 22-29 fzwq=996) BLOOD UREA NITROGEN 22 mg/dL 7-21 (BEAKER) (test eztr=641) CREATININE (BEAKER) (test 2.88 mg/dL 0.57-1.25 Specimen slightly cgbh=487) hemolyzed GLUCOSE RANDOM (BEAKER) 220 mg/dL 70-105 (test guul=529) CALCIUM (BEAKER) (test 9.2 mg/dL 8.4-10.2 hthw=540) EGFR (BEAKER) (test 16 mL/min/1.73 sq m ESTIMATED GFR IS NOT zhdk=4942) ACCURATE CREATININE CLEARANCE IN PREDICTING GLOMERULAR FILTRATION RATE. ESTIMATED GFR IS NOT APPLICABLE FOR DIALYSIS PATIENTS. [id number] 04:33:00 Test Item Value Reference Range Comments MAGNESIUM (BEAKER) (test 2.0 mg/dL 1.6-2.6 Specimen slightly hemolyzed ripw=061) CBC W/PLT COUNT & AUTO [id number] 04:23:00 Test Item Value Reference Range Comments WHITE BLOOD CELL COUNT (BEAKER) (test itry=096) 9.5 K/ L 3.5-10.5 RED BLOOD CELL COUNT (BEAKER) (test zzsc=377) 3.10 M/ L 3.93-5.22 HEMOGLOBIN (BEAKER) (test xikk=271) 9.1 GM/DL 11.2-15.7 HEMATOCRIT (BEAKER) (test ntci=817) 28.7 % 34.1-44.9 MEAN CORPUSCULAR VOLUME (BEAKER) (test suay=208) 92.6 fL 79.4-94.8 MEAN CORPUSCULAR HEMOGLOBIN (BEAKER) (test 29.4 pg 25.6-32.2 qwlw=440) MEAN CORPUSCULAR HEMOGLOBIN CONC (BEAKER) (test 31.7 GM/DL 32.2-35.5 jxhr=019) RED CELL DISTRIBUTION WIDTH (BEAKER) (test 15.8 % 11.7-14.4 fmfx=971) PLATELET COUNT (BEAKER) (test hmkx=965) 387 K/CU MM 150-450 MEAN PLATELET VOLUME (BEAKER) (test iidb=823) 11.5 fL 9.4-12.3 NUCLEATED RED BLOOD CELLS (BEAKER) (test 0 /100 WBC 0-0 nafh=715) NEUTROPHILS RELATIVE PERCENT (BEAKER) (test 66 % pabx=122) LYMPHOCYTES RELATIVE PERCENT (BEAKER) (test 19 % wbag=566) MONOCYTES RELATIVE PERCENT (BEAKER) (test 11 % iimz=898) EOSINOPHILS RELATIVE PERCENT (BEAKER) (test 2 % rcvn=504) BASOPHILS RELATIVE PERCENT (BEAKER) (test 1 % thnn=311) NEUTROPHILS ABSOLUTE COUNT (BEAKER) (test 6.28 K/ L 1.56-6.13 kvcj=766) LYMPHOCYTES ABSOLUTE COUNT (BEAKER) (test 1.79 K/ L 1.18-3.74 siwg=302) MONOCYTES ABSOLUTE COUNT (BEAKER) (test 1.02 K/ L 0.24-0.36 lmhd=905) EOSINOPHILS ABSOLUTE COUNT (BEAKER) (test 0.21 K/ L 0.04-0.36 onkb=418) BASOPHILS ABSOLUTE COUNT (BEAKER) (test 0.07 K/ L 0.01-0.08 yweh=586) IMMATURE GRANULOCYTES-RELATIVE PERCENT (BEAKER) 1 % 0-1 (test rmfh=8685) POCT-GLUCOSE [id number] 20:49:00 Test Item Value Reference Range Comments POC-GLUCOSE METER (BEAKER) 283 mg/dL 70-110 TESTED AT [address] (test tvsy=7922) [facility] [address] POCT-GLUCOSE [id number] 17:16:00 Test Item Value Reference Range Comments POC-GLUCOSE METER (BEAKER) 193 mg/dL 70-110 TESTED AT [address] (test gsml=8809) [place] [id number] POCT-GLUCOSE [id number] 11:47:00 Test Item Value Reference Range Comments POC-GLUCOSE METER (BEAKER) 316 mg/dL 70-110 Verify with Lab draw/TESTED AT (test quxp=3125) [address] [address] BASIC METABOLIC [id number] 07:53:00 Test Item Value Reference Range Comments SODIUM (BEAKER) (test 129 meq/L 136-145 gysd=379) POTASSIUM (BEAKER) (test 3.9 meq/L 3.5-5.1 qywk=286) CHLORIDE (BEAKER) (test 94 meq/L 98-107 qeoi=489) CO2 (BEAKER) (test 20 meq/L 22-29 phts=932) BLOOD UREA NITROGEN 58 mg/dL 7-21 (BEAKER) (test czan=001) CREATININE (BEAKER) (test 5.50 mg/dL 0.57-1.25 lqlr=004) GLUCOSE RANDOM (BEAKER) 209 mg/dL 70-105 (test qwae=586) CALCIUM (BEAKER) (test 9.1 mg/dL 8.4-10.2 dajg=268) EGFR (BEAKER) (test 8 mL/min/1.73 sq m ESTIMATED GFR IS NOT oxbw=9315) ACCURATE CREATININE CLEARANCE IN PREDICTING GLOMERULAR FILTRATION RATE. ESTIMATED GFR IS NOT APPLICABLE FOR DIALYSIS PATIENTS. [id number] 07:52:00 Test Item Value Reference Range Comments PHOSPHORUS (BEAKER) (test zkon=188) 5.8 mg/dL 2.3-4.7 [id number] 07:52:00 Test Item Value Reference Range Comments MAGNESIUM (BEAKER) (test vzui=454) 1.8 mg/dL 1.6-2.6 POCT-GLUCOSE [id number] 07:41:00 Test Item Value Reference Range Comments POC-GLUCOSE METER (BEAKER) 226 mg/dL 70-[address] [facility] [address] [facility] (test qtdk=0023) [place] [address] B-TYPE NATRIURETIC FACTOR (BNP)2018-05-29 07:06:00 Test Item Value Reference Range Comments B-TYPE NATRIURETIC PEPTIDE (BEAKER) (test 306 pg/mL 0-100 phgg=537) CBC W/PLT COUNT & AUTO [id number] 06:50:00 Test Item Value Reference Range Comments WHITE BLOOD CELL COUNT (BEAKER) (test ahdy=271) 13.0 K/ L 3.5-10.5 RED BLOOD CELL COUNT (BEAKER) (test gouf=727) 3.00 M/ L 3.93-5.22 HEMOGLOBIN (BEAKER) (test cciq=735) 8.9 GM/DL 11.2-15.7 HEMATOCRIT (BEAKER) (test vonj=955) 27.7 % 34.1-44.9 MEAN CORPUSCULAR VOLUME (BEAKER) (test edvg=517) 92.3 fL 79.4-94.8 MEAN CORPUSCULAR HEMOGLOBIN (BEAKER) (test 29.7 pg 25.6-32.2 ipiz=452) MEAN CORPUSCULAR HEMOGLOBIN CONC (BEAKER) (test 32.1 GM/DL 32.2-35.5 smyl=664) RED CELL DISTRIBUTION WIDTH (BEAKER) (test 15.8 % 11.7-14.4 ikoo=929) PLATELET COUNT (BEAKER) (test iofx=662) 370 K/CU MM 150-450 MEAN PLATELET VOLUME (BEAKER) (test wfcm=473) 11.7 fL 9.4-12.3 NUCLEATED RED BLOOD CELLS (BEAKER) (test 0 /100 WBC 0-0 jwhz=852) NEUTROPHILS RELATIVE PERCENT (BEAKER) (test 69 % bqyy=383) LYMPHOCYTES RELATIVE PERCENT (BEAKER) (test 17 % vbuk=722) MONOCYTES RELATIVE PERCENT (BEAKER) (test 10 % tcjf=030) EOSINOPHILS RELATIVE PERCENT (BEAKER) (test 2 % obwh=142) BASOPHILS RELATIVE PERCENT (BEAKER) (test 1 % taus=890) NEUTROPHILS ABSOLUTE COUNT (BEAKER) (test 8.88 K/ L 1.56-6.13 rrxb=541) LYMPHOCYTES ABSOLUTE COUNT (BEAKER) (test 2.26 K/ L 1.18-3.74 kbbf=281) MONOCYTES ABSOLUTE COUNT (BEAKER) (test 1.29 K/ L 0.24-0.36 obwk=843) EOSINOPHILS ABSOLUTE COUNT (BEAKER) (test 0.31 K/ L 0.04-0.36 rvyt=455) BASOPHILS ABSOLUTE COUNT (BEAKER) (test 0.06 K/ L 0.01-0.08 wlad=005) IMMATURE GRANULOCYTES-RELATIVE PERCENT (BEAKER) 1 % 0-1 (test smfv=9670) POCT-GLUCOSE [id number] 21:57:00 Test Item Value Reference Range Comments POC-GLUCOSE METER (BEAKER) 328 mg/dL 70-110 Will Repeat Test/TESTED AT (test nflr=3871) [place] [id number] POCT-GLUCOSE [id number] 12:39:00 Test Item Value Reference Range Comments POC-GLUCOSE METER (BEAKER) 309 mg/dL 70-110 TESTED AT [address] (test odsp=2877) [place] [address] POCT-GLUCOSE [id number] 08:32:00 Test Item Value Reference Range Comments POC-GLUCOSE METER (BEAKER) 204 mg/dL 70-110 TESTED AT [address] (test lflk=4245) [facility] [address] BASIC METABOLIC [id number] 05:23:00 Test Item Value Reference Range Comments SODIUM (BEAKER) (test 134 meq/L 136-145 qopp=021) POTASSIUM (BEAKER) (test 4.3 meq/L 3.5-5.1 pvef=203) CHLORIDE (BEAKER) (test 99 meq/L 98-107 azlk=371) CO2 (BEAKER) (test 24 meq/L 22-29 ovsm=092) BLOOD UREA NITROGEN 37 mg/dL 7-21 (BEAKER) (test qdif=431) CREATININE (BEAKER) (test 4.04 mg/dL 0.57-1.25 ncsw=930) GLUCOSE RANDOM (BEAKER) 124 mg/dL 70-105 (test eezo=809) CALCIUM (BEAKER) (test 9.3 mg/dL 8.4-10.2 sqoa=955) EGFR (BEAKER) (test 11 mL/min/1.73 sq m ESTIMATED GFR IS NOT dzvw=3109) ACCURATE CREATININE CLEARANCE IN PREDICTING GLOMERULAR FILTRATION RATE. ESTIMATED GFR IS NOT APPLICABLE FOR DIALYSIS PATIENTS. [id number] 05:20:00 Test Item Value Reference Range Comments PHOSPHORUS (BEAKER) (test juth=740) 4.4 mg/dL 2.3-4.7 [id number] 05:20:00 Test Item Value Reference Range Comments MAGNESIUM (BEAKER) (test aegh=224) 1.9 mg/dL 1.6-2.6 CBC W/PLT COUNT & AUTO [id number] 04:48:00 Test Item Value Reference Range Comments WHITE BLOOD CELL COUNT (BEAKER) (test ekqw=481) 11.8 K/ L 3.5-10.5 RED BLOOD CELL COUNT (BEAKER) (test gwek=951) 3.22 M/ L 3.93-5.22 HEMOGLOBIN (BEAKER) (test biwu=268) 9.4 GM/DL 11.2-15.7 HEMATOCRIT (BEAKER) (test ftnz=172) 30.2 % 34.1-44.9 MEAN CORPUSCULAR VOLUME (BEAKER) (test yumz=241) 93.8 fL 79.4-94.8 MEAN CORPUSCULAR HEMOGLOBIN (BEAKER) (test 29.2 pg 25.6-32.2 iatq=000) MEAN CORPUSCULAR HEMOGLOBIN CONC (BEAKER) (test 31.1 GM/DL 32.2-35.5 lhwr=190) RED CELL DISTRIBUTION WIDTH (BEAKER) (test 15.7 % 11.7-14.4 hvhv=927) PLATELET COUNT (BEAKER) (test enjo=548) 358 K/CU MM 150-450 MEAN PLATELET VOLUME (BEAKER) (test nuzy=009) 11.7 fL 9.4-12.3 NUCLEATED RED BLOOD CELLS (BEAKER) (test 0 /100 WBC 0-0 wcgn=432) NEUTROPHILS RELATIVE PERCENT (BEAKER) (test 65 % zcwx=847) LYMPHOCYTES RELATIVE PERCENT (BEAKER) (test 19 % lqab=362) MONOCYTES RELATIVE PERCENT (BEAKER) (test 10 % scpm=144) EOSINOPHILS RELATIVE PERCENT (BEAKER) (test 3 % csua=874) BASOPHILS RELATIVE PERCENT (BEAKER) (test 1 % coch=736) NEUTROPHILS ABSOLUTE COUNT (BEAKER) (test 7.73 K/ L 1.56-6.13 rckw=386) LYMPHOCYTES ABSOLUTE COUNT (BEAKER) (test 2.29 K/ L 1.18-3.74 gjea=446) MONOCYTES ABSOLUTE COUNT (BEAKER) (test 1.20 K/ L 0.24-0.36 bfip=834) EOSINOPHILS ABSOLUTE COUNT (BEAKER) (test 0.38 K/ L 0.04-0.36 ysnm=310) BASOPHILS ABSOLUTE COUNT (BEAKER) (test 0.07 K/ L 0.01-0.08 hhit=771) IMMATURE GRANULOCYTES-RELATIVE PERCENT (BEAKER) 1 % 0-1 (test vbta=1401) POCT-GLUCOSE [id number] 22:03:00 Test Item Value Reference Range Comments POC-GLUCOSE METER (BEAKER) 152 mg/dL 70-110 TESTED AT [address] (test joed=9568) [place] [id number] POCT-GLUCOSE [id number] 18:20:00 Test Item Value Reference Range Comments POC-GLUCOSE METER (BEAKER) 255 mg/dL 70-110 TESTED AT [address] (test tvri=1958) [place] [address] POCT-GLUCOSE [id number] 12:27:00 Test Item Value Reference Range Comments POC-GLUCOSE METER (BEAKER) 315 mg/dL 70-110 Notified SAMAN HERNANDEZ/TESTED AT [facility] (test mxfr=9373) [address] [place], [place] [id number] POCT-GLUCOSE [id number] 08:05:00 Test Item Value Reference Range Comments POC-GLUCOSE METER (BEAKER) 198 mg/dL 70-110 TESTED AT [address] (test lkim=4480) [place] [id number] CALCIUM, [id number] 05:39:00 Test Item Value Reference Range Comments CALCIUM IONIZED (BEAKER) (test ruln=589) 1.12 mmol/L 1.12-1.27 PH, BLOOD (BEAKER) (test msgq=6465) 7.41 COMPREHENSIVE METABOLIC [id number] 04:53:00 Test Item Value Reference Range Comments TOTAL PROTEIN (BEAKER) 7.2 gm/dL 6.0-8.3 (test patl=775) ALBUMIN (BEAKER) (test 3.2 g/dL 3.5-5.0 nnis=5489) ALKALINE PHOSPHATASE 212 U/L 40-150 (BEAKER) (test uset=490) BILIRUBIN TOTAL (BEAKER) 0.3 mg/dL 0.2-1.2 (test xjez=286) SODIUM (BEAKER) (test 135 meq/L 136-145 wdck=661) POTASSIUM (BEAKER) (test 3.8 meq/L 3.5-5.1 sxjs=616) CHLORIDE (BEAKER) (test 98 meq/L 98-107 dhrr=343) CO2 (BEAKER) (test 27 meq/L 22-29 fxzn=913) BLOOD UREA NITROGEN 18 mg/dL 7-21 (BEAKER) (test yifl=345) CREATININE (BEAKER) (test 2.42 mg/dL 0.57-1.25 slbn=942) GLUCOSE RANDOM (BEAKER) 211 mg/dL 70-105 (test wnbi=629) CALCIUM (BEAKER) (test 9.1 mg/dL 8.4-10.2 dsuf=157) AST (SGOT) (BEAKER) (test 35 U/L 5-34 bznn=640) ALT (SGPT) (BEAKER) (test 28 U/L 6-55 dhlb=859) EGFR (BEAKER) (test 20 mL/min/1.73 sq m ESTIMATED GFR IS NOT xsim=0039) ACCURATE CREATININE CLEARANCE IN PREDICTING GLOMERULAR FILTRATION RATE. ESTIMATED GFR IS NOT APPLICABLE FOR DIALYSIS PATIENTS. [id number] 04:47:00 Test Item Value Reference Range Comments PHOSPHORUS (BEAKER) (test yome=839) 3.5 mg/dL 2.3-4.7 [id number] 04:47:00 Test Item Value Reference Range Comments MAGNESIUM (BEAKER) (test uqut=384) 1.8 mg/dL 1.6-2.6 CBC W/PLT COUNT & AUTO [id number] 04:24:00 Test Item Value Reference Range Comments WHITE BLOOD CELL COUNT (BEAKER) (test rrvh=109) 9.7 K/ L 3.5-10.5 RED BLOOD CELL COUNT (BEAKER) (test lykz=410) 3.14 M/ L 3.93-5.22 HEMOGLOBIN (BEAKER) (test qnvq=390) 9.1 GM/DL 11.2-15.7 HEMATOCRIT (BEAKER) (test qofw=041) 29.2 % 34.1-44.9 MEAN CORPUSCULAR VOLUME (BEAKER) (test ewna=942) 93.0 fL 79.4-94.8 MEAN CORPUSCULAR HEMOGLOBIN (BEAKER) (test 29.0 pg 25.6-32.2 ynag=750) MEAN CORPUSCULAR HEMOGLOBIN CONC (BEAKER) (test 31.2 GM/DL 32.2-35.5 onvf=134) RED CELL DISTRIBUTION WIDTH (BEAKER) (test 15.9 % 11.7-14.4 jtqx=528) PLATELET COUNT (BEAKER) (test wqie=530) 331 K/CU MM 150-450 MEAN PLATELET VOLUME (BEAKER) (test gtlu=892) 11.4 fL 9.4-12.3 NUCLEATED RED BLOOD CELLS (BEAKER) (test 0 /100 WBC 0-0 uche=442) NEUTROPHILS RELATIVE PERCENT (BEAKER) (test 62 % ieuz=110) LYMPHOCYTES RELATIVE PERCENT (BEAKER) (test 20 % rbik=443) MONOCYTES RELATIVE PERCENT (BEAKER) (test 14 % gzzy=796) EOSINOPHILS RELATIVE PERCENT (BEAKER) (test 3 % ycmb=779) BASOPHILS RELATIVE PERCENT (BEAKER) (test 0 % pbfo=432) NEUTROPHILS ABSOLUTE COUNT (BEAKER) (test 6.00 K/ L 1.56-6.13 vgvs=580) LYMPHOCYTES ABSOLUTE COUNT (BEAKER) (test 1.89 K/ L 1.18-3.74 ygvq=818) MONOCYTES ABSOLUTE COUNT (BEAKER) (test 1.31 K/ L 0.24-0.36 jnym=354) EOSINOPHILS ABSOLUTE COUNT (BEAKER) (test 0.29 K/ L 0.04-0.36 zkwh=594) BASOPHILS ABSOLUTE COUNT (BEAKER) (test 0.04 K/ L 0.01-0.08 gvqg=523) IMMATURE GRANULOCYTES-RELATIVE PERCENT (BEAKER) 1 % 0-1 (test hyzl=6377) POCT-GLUCOSE [id number] 22:46:00 Test Item Value Reference Range Comments POC-GLUCOSE METER (BEAKER) 266 mg/dL 70-110 TESTED AT [address] (test izjd=4314) [facility] [address] POCT-GLUCOSE [id number] 17:28:00 Test Item Value Reference Range Comments POC-GLUCOSE METER (BEAKER) 194 mg/dL 70-110 TESTED AT [address] (test byes=3240) [facility] [address] POCT-GLUCOSE [id number] 12:03:00 Test Item Value Reference Range Comments POC-GLUCOSE METER (BEAKER) 305 mg/dL 70-110 TESTED AT [address] (test bxds=3169) [facility] [address] POCT-GLUCOSE [id number] 08:46:00 Test Item Value Reference Range Comments POC-GLUCOSE METER (BEAKER) 210 mg/dL 70-110 TESTED AT [address] (test yaus=7449) [facility] [address] CBC W/PLT COUNT & AUTO [id number] 06:41:00 Test Item Value Reference Range Comments WHITE BLOOD CELL COUNT (BEAKER) (test datj=104) 9.6 K/ L 3.5-10.5 RED BLOOD CELL COUNT (BEAKER) (test hunx=025) 2.98 M/ L 3.93-5.22 HEMOGLOBIN (BEAKER) (test blgd=079) 8.7 GM/DL 11.2-15.7 HEMATOCRIT (BEAKER) (test aytz=578) 27.8 % 34.1-44.9 MEAN CORPUSCULAR VOLUME (BEAKER) (test gwib=540) 93.3 fL 79.4-94.8 MEAN CORPUSCULAR HEMOGLOBIN (BEAKER) (test 29.2 pg 25.6-32.2 rddf=317) MEAN CORPUSCULAR HEMOGLOBIN CONC (BEAKER) (test 31.3 GM/DL 32.2-35.5 fmpd=613) RED CELL DISTRIBUTION WIDTH (BEAKER) (test 15.7 % 11.7-14.4 cmzz=905) PLATELET COUNT (BEAKER) (test jbey=892) 284 K/CU MM 150-450 MEAN PLATELET VOLUME (BEAKER) (test ljqb=737) 11.8 fL 9.4-12.3 NUCLEATED RED BLOOD CELLS (BEAKER) (test 0 /100 WBC 0-0 ojjy=839) NEUTROPHILS RELATIVE PERCENT (BEAKER) (test 62 % hygk=915) LYMPHOCYTES RELATIVE PERCENT (BEAKER) (test 18 % lony=433) MONOCYTES RELATIVE PERCENT (BEAKER) (test 16 % qame=518) EOSINOPHILS RELATIVE PERCENT (BEAKER) (test 2 % idjc=646) BASOPHILS RELATIVE PERCENT (BEAKER) (test 1 % pgpi=500) NEUTROPHILS ABSOLUTE COUNT (BEAKER) (test 5.87 K/ L 1.56-6.13 ejkk=607) LYMPHOCYTES ABSOLUTE COUNT (BEAKER) (test 1.73 K/ L 1.18-3.74 able=415) MONOCYTES ABSOLUTE COUNT (BEAKER) (test 1.50 K/ L 0.24-0.36 wjfa=206) EOSINOPHILS ABSOLUTE COUNT (BEAKER) (test 0.23 K/ L 0.04-0.36 tkgc=702) BASOPHILS ABSOLUTE COUNT (BEAKER) (test 0.05 K/ L 0.01-0.08 nqsr=080) IMMATURE GRANULOCYTES-RELATIVE PERCENT (BEAKER) 2 % 0-1 (test bgik=1130) BASIC METABOLIC [id number] 05:42:00 Test Item Value Reference Range Comments SODIUM (BEAKER) (test 133 meq/L 136-145 xebf=578) POTASSIUM (BEAKER) (test 4.1 meq/L 3.5-5.1 ounq=468) CHLORIDE (BEAKER) (test 98 meq/L 98-107 xdal=753) CO2 (BEAKER) (test 23 meq/L 22-29 npwu=833) BLOOD UREA NITROGEN 37 mg/dL 7-21 (BEAKER) (test mabu=532) CREATININE (BEAKER) (test 3.70 mg/dL 0.57-1.25 hoxt=372) GLUCOSE RANDOM (BEAKER) 202 mg/dL 70-105 (test hovl=659) CALCIUM (BEAKER) (test 8.9 mg/dL 8.4-10.2 siok=891) EGFR (BEAKER) (test 12 mL/min/1.73 sq m ESTIMATED GFR IS NOT dtcs=3997) ACCURATE CREATININE CLEARANCE IN PREDICTING GLOMERULAR FILTRATION RATE. ESTIMATED GFR IS NOT APPLICABLE FOR DIALYSIS PATIENTS. [id number] 05:35:00 Test Item Value Reference Range Comments MAGNESIUM (BEAKER) (test dxyu=564) 1.9 mg/dL 1.6-2.6 POCT-GLUCOSE [id number] 01:12:00 Test Item Value Reference Range Comments POC-GLUCOSE METER (BEAKER) 293 mg/dL 70-[address] [facility] [address] [facility] (test yipb=3398) [facility] [address] POCT-GLUCOSE [id number] 01:12:00 Test Item Value Reference Range Comments POC-GLUCOSE METER (BEAKER) 327 mg/dL 70-110 TESTED AT [address] (test pgin=9139) [facility] [address] ANG, TUNNELED CATHETER [id number] 14:50:00Reason for exam:->need tdc/hdFINAL REPORT Tunneled dialysis catheter insertion , 05/24/2018. History: Renal failure. Modality: Sonography and fluoroscopy. Sedation: Versed 1 mg and fentanyl 50 mcg was given intravenously for conscious sedation. Vital signs were monitored throughout the procedure by a nurse, and remained stable. Physician intra-service time was 20 minutes. Automatic Folder Seamer: Meenakshi. Die Setter: None. Approach: Right internal jugular vein Estimated [...] needle into the right atrium. A 4 Filipino micropuncture sheath was placed. A subcutaneous tunnel was created in the right anterior chest wall by blunt dissection. A 19 cm 15.5 Filipino Duraflow 2 catheter was brought through the [...] MDReport Verified Date/Time: 05/25/2018 14:50:11 Reading Location: [address] Body Reading Room POCT-GLUCOSE [id number] 12:19: 00 Test Item Value Reference Range Comments POC-GLUCOSE METER (BEAKER) 197 mg/dL 70-[address] [facility] [address] [place] [address] (test rxxl=2423) [facility] [address] BASIC METABOLIC [id number] 06:48:00 Test Item Value Reference Range Comments SODIUM (BEAKER) (test 138 meq/L 136-145 prfd=038) POTASSIUM (BEAKER) (test 3.9 meq/L 3.5-5.1 sbml=220) CHLORIDE (BEAKER) (test 99 meq/L 98-107 ecin=197) CO2 (BEAKER) (test 30 meq/L 22-29 chil=645) BLOOD UREA NITROGEN 20 mg/dL 7-21 (BEAKER) (test mxhj=030) CREATININE (BEAKER) (test 2.47 mg/dL 0.57-1.25 hrwg=539) GLUCOSE RANDOM (BEAKER) 85 mg/dL 70-105 (test kutm=754) CALCIUM (BEAKER) (test 9.3 mg/dL 8.4-10.2 ctai=411) EGFR (BEAKER) (test 20 mL/min/1.73 sq m ESTIMATED GFR IS NOT mauh=2236) ACCURATE CREATININE CLEARANCE IN PREDICTING GLOMERULAR FILTRATION RATE. ESTIMATED GFR IS NOT APPLICABLE FOR DIALYSIS PATIENTS. [id number] 06:43:00 Test Item Value Reference Range Comments PHOSPHORUS (BEAKER) (test yhwi=768) 4.0 mg/dL 2.3-4.7 [id number] 06:43:00 Test Item Value Reference Range Comments MAGNESIUM (BEAKER) (test vrlk=849) 2.0 mg/dL 1.6-2.6 POCT-GLUCOSE [id number] 06:36:00 Test Item Value Reference Range Comments POC-GLUCOSE METER (BEAKER) 84 mg/dL 70-[address] [facility] [address] [facility] (test xaoa=3715) [facility] [address] CBC W/PLT COUNT & AUTO [id number] 06:12:00 Test Item Value Reference Range Comments WHITE BLOOD CELL COUNT (BEAKER) (test fwof=277) 9.9 K/ L 3.5-10.5 RED BLOOD CELL COUNT (BEAKER) (test vuim=977) 3.30 M/ L 3.93-5.22 HEMOGLOBIN (BEAKER) (test saho=795) 9.6 GM/DL 11.2-15.7 HEMATOCRIT (BEAKER) (test sunt=987) 30.8 % 34.1-44.9 MEAN CORPUSCULAR VOLUME (BEAKER) (test pvwf=802) 93.3 fL 79.4-94.8 MEAN CORPUSCULAR HEMOGLOBIN (BEAKER) (test 29.1 pg 25.6-32.2 ezxl=709) MEAN CORPUSCULAR HEMOGLOBIN CONC (BEAKER) (test 31.2 GM/DL 32.2-35.5 ipyw=811) RED CELL DISTRIBUTION WIDTH (BEAKER) (test 15.6 % 11.7-14.4 trdm=798) PLATELET COUNT (BEAKER) (test gfoi=584) 287 K/CU MM 150-450 MEAN PLATELET VOLUME (BEAKER) (test iavg=580) 11.7 fL 9.4-12.3 NUCLEATED RED BLOOD CELLS (BEAKER) (test 0 /100 WBC 0-0 ikbo=645) NEUTROPHILS RELATIVE PERCENT (BEAKER) (test 68 % gvst=434) LYMPHOCYTES RELATIVE PERCENT (BEAKER) (test 12 % sqos=318) MONOCYTES RELATIVE PERCENT (BEAKER) (test 14 % zcpp=578) EOSINOPHILS RELATIVE PERCENT (BEAKER) (test 3 % ldzg=510) BASOPHILS RELATIVE PERCENT (BEAKER) (test 1 % wnrn=100) NEUTROPHILS ABSOLUTE COUNT (BEAKER) (test 6.79 K/ L 1.56-6.13 lqze=099) LYMPHOCYTES ABSOLUTE COUNT (BEAKER) (test 1.23 K/ L 1.18-3.74 thkr=736) MONOCYTES ABSOLUTE COUNT (BEAKER) (test 1.43 K/ L 0.24-0.36 dgsw=804) EOSINOPHILS ABSOLUTE COUNT (BEAKER) (test 0.31 K/ L 0.04-0.36 jwzy=832) BASOPHILS ABSOLUTE COUNT (BEAKER) (test 0.05 K/ L 0.01-0.08 iibt=434) IMMATURE GRANULOCYTES-RELATIVE PERCENT (BEAKER) 1 % 0-1 (test xpxx=4874) POCT-GLUCOSE [id number] 23:53:00 Test Item Value Reference Range Comments POC-GLUCOSE METER (BEAKER) 88 mg/dL 70-110 TESTED AT [address] (test hlgx=0946) [facility] [address] POCT-GLUCOSE [id number] 17:24:00 Test Item Value Reference Range Comments POC-GLUCOSE METER (BEAKER) 125 mg/dL 70-110 TESTED AT [address] (test cimk=6896) [facility] [address] POCT-GLUCOSE [id number] 12:00:00 Test Item Value Reference Range Comments POC-GLUCOSE METER (BEAKER) 110 mg/dL 70-110 TESTED AT [address] (test pcvz=9381) [facility] [address] PROTHROMBIN [id number] 09:56:00 Test Item Value Reference Range Comments PROTIME (BEAKER) (test odhn=289) 14.5 seconds 11.7-14.7 INR (BEAKER) (test afqo=527) 1.1 <=5.9 RECOMMENDED COUMADIN/WARFARIN INR THERAPY RANGESSTANDARD DOSE: 2.0 - 3.0 Includes: PROPHYLAXIS forvenous thrombosis, systemic embolization; TREATMENT for venous thrombosis and/or pulmonary embolus.HIGH RISK: Target INR is 2.5-3.5 for patients with mechanical heart valves.POCT-GLUCOSE [id number] 07:54:00 Test Item Value Reference Range Comments POC-GLUCOSE METER (BEAKER) 110 mg/dL 70-[address] [facility] [address] (test bdcp=9842) [facility] [address] BASIC METABOLIC [id number] 05:57:00 Test Item Value Reference Range Comments SODIUM (BEAKER) (test 139 meq/L 136-145 fkkf=451) POTASSIUM (BEAKER) (test 3.5 meq/L 3.5-5.1 vbcy=419) CHLORIDE (BEAKER) (test 103 meq/L 98-107 ddpa=173) CO2 (BEAKER) (test 27 meq/L 22-29 agew=960) BLOOD UREA NITROGEN 26 mg/dL 7-21 (BEAKER) (test mbge=173) CREATININE (BEAKER) (test 2.77 mg/dL 0.57-1.25 tfxz=146) GLUCOSE RANDOM (BEAKER) 65 mg/dL 70-105 (test ubcb=639) CALCIUM (BEAKER) (test 9.1 mg/dL 8.4-10.2 krqe=449) EGFR (BEAKER) (test 17 mL/min/1.73 sq m ESTIMATED GFR IS NOT phuo=1714) ACCURATE CREATININE CLEARANCE IN PREDICTING GLOMERULAR FILTRATION RATE. ESTIMATED GFR IS NOT APPLICABLE FOR DIALYSIS PATIENTS. [id number] 05:56:00 Test Item Value Reference Range Comments MAGNESIUM (BEAKER) (test pfry=182) 2.0 mg/dL 1.6-2.6 CBC W/PLT COUNT & AUTO [id number] 05:34:00 Test Item Value Reference Range Comments WHITE BLOOD CELL COUNT (BEAKER) (test vpvj=877) 9.8 K/ L 3.5-10.5 RED BLOOD CELL COUNT (BEAKER) (test oioj=226) 2.92 M/ L 3.93-5.22 HEMOGLOBIN (BEAKER) (test jrxk=597) 8.5 GM/DL 11.2-15.7 HEMATOCRIT (BEAKER) (test mppo=631) 27.1 % 34.1-44.9 MEAN CORPUSCULAR VOLUME (BEAKER) (test twhr=582) 92.8 fL 79.4-94.8 MEAN CORPUSCULAR HEMOGLOBIN (BEAKER) (test 29.1 pg 25.6-32.2 iykw=525) MEAN CORPUSCULAR HEMOGLOBIN CONC (BEAKER) (test 31.4 GM/DL 32.2-35.5 ofbc=613) RED CELL DISTRIBUTION WIDTH (BEAKER) (test 15.0 % 11.7-14.4 qkdg=332) PLATELET COUNT (BEAKER) (test bkmb=206) 245 K/CU MM 150-450 MEAN PLATELET VOLUME (BEAKER) (test bboh=547) 11.3 fL 9.4-12.3 NUCLEATED RED BLOOD CELLS (BEAKER) (test 0 /100 WBC 0-0 zajw=244) NEUTROPHILS RELATIVE PERCENT (BEAKER) (test 59 % fjbd=519) LYMPHOCYTES RELATIVE PERCENT (BEAKER) (test 18 % pwln=543) MONOCYTES RELATIVE PERCENT (BEAKER) (test 15 % fyqw=116) EOSINOPHILS RELATIVE PERCENT (BEAKER) (test 6 % ptpl=280) BASOPHILS RELATIVE PERCENT (BEAKER) (test 1 % aysg=407) NEUTROPHILS ABSOLUTE COUNT (BEAKER) (test 5.73 K/ L 1.56-6.13 toyv=046) LYMPHOCYTES ABSOLUTE COUNT (BEAKER) (test 1.72 K/ L 1.18-3.74 qkxe=751) MONOCYTES ABSOLUTE COUNT (BEAKER) (test 1.46 K/ L 0.24-0.36 onmo=163) EOSINOPHILS ABSOLUTE COUNT (BEAKER) (test 0.55 K/ L 0.04-0.36 osgq=492) BASOPHILS ABSOLUTE COUNT (BEAKER) (test 0.07 K/ L 0.01-0.08 qxbi=654) IMMATURE GRANULOCYTES-RELATIVE PERCENT (BEAKER) 3 % 0-1 (test pkiq=3494) POCT-GLUCOSE [id number] 00:45:00 Test Item Value Reference Range Comments POC-GLUCOSE METER (BEAKER) 95 mg/dL 70-110 TESTED AT [address] (test qaov=8088) [facility] [address] POCT-GLUCOSE [id number] 17:11:00 Test Item Value Reference Range Comments POC-GLUCOSE METER (BEAKER) 247 mg/dL 70-110 TESTED AT [address] (test ppfh=3146) [facility] [address] POCT-GLUCOSE [id number] 13:00:00 Test Item Value Reference Range Comments POC-GLUCOSE METER (BEAKER) 182 mg/dL 70-[address] [facility] [address] [facility] (test cspp=6328) [facility] [address] BASIC METABOLIC [id number] 06:26:00 Test Item Value Reference Range Comments SODIUM (BEAKER) (test 138 meq/L 136-145 xldw=271) POTASSIUM (BEAKER) (test 3.6 meq/L 3.5-5.1 puau=482) CHLORIDE (BEAKER) (test 101 meq/L 98-107 emms=071) CO2 (BEAKER) (test 29 meq/L 22-29 njza=358) BLOOD UREA NITROGEN 16 mg/dL 7-21 (BEAKER) (test xhbt=383) CREATININE (BEAKER) (test 1.74 mg/dL 0.57-1.25 mbkq=129) GLUCOSE RANDOM (BEAKER) 146 mg/dL 70-105 (test geam=651) CALCIUM (BEAKER) (test 9.0 mg/dL 8.4-10.2 qzgh=744) EGFR (BEAKER) (test 29 mL/min/1.73 sq m ESTIMATED GFR IS NOT ltro=9636) ACCURATE CREATININE CLEARANCE IN PREDICTING GLOMERULAR FILTRATION RATE. ESTIMATED GFR IS NOT APPLICABLE FOR DIALYSIS PATIENTS. [id number] 06:21:00 Test Item Value Reference Range Comments MAGNESIUM (BEAKER) (test qety=035) 2.0 mg/dL 1.6-2.6 CBC W/PLT COUNT & AUTO [id number] 05:54:00 Test Item Value Reference Range Comments WHITE BLOOD CELL COUNT (BEAKER) (test cnhq=489) 9.2 K/ L 3.5-10.5 RED BLOOD CELL COUNT (BEAKER) (test gwkb=000) 2.92 M/ L 3.93-5.22 HEMOGLOBIN (BEAKER) (test byxj=138) 8.6 GM/DL 11.2-15.7 HEMATOCRIT (BEAKER) (test jngt=974) 27.0 % 34.1-44.9 MEAN CORPUSCULAR VOLUME (BEAKER) (test bcfy=870) 92.5 fL 79.4-94.8 MEAN CORPUSCULAR HEMOGLOBIN (BEAKER) (test 29.5 pg 25.6-32.2 yqdb=464) MEAN CORPUSCULAR HEMOGLOBIN CONC (BEAKER) (test 31.9 GM/DL 32.2-35.5 mqvu=296) RED CELL DISTRIBUTION WIDTH (BEAKER) (test 14.9 % 11.7-14.4 phke=087) PLATELET COUNT (BEAKER) (test cdbh=414) 197 K/CU MM 150-450 MEAN PLATELET VOLUME (BEAKER) (test jgcw=253) 11.8 fL 9.4-12.3 NUCLEATED RED BLOOD CELLS (BEAKER) (test 0 /100 WBC 0-0 lfcz=093) NEUTROPHILS RELATIVE PERCENT (BEAKER) (test 60 % xzvv=949) LYMPHOCYTES RELATIVE PERCENT (BEAKER) (test 16 % inyj=315) MONOCYTES RELATIVE PERCENT (BEAKER) (test 13 % gcda=053) EOSINOPHILS RELATIVE PERCENT (BEAKER) (test 7 % bjlp=469) BASOPHILS RELATIVE PERCENT (BEAKER) (test 1 % jbzf=569) NEUTROPHILS ABSOLUTE COUNT (BEAKER) (test 5.47 K/ L 1.56-6.13 fvtq=931) LYMPHOCYTES ABSOLUTE COUNT (BEAKER) (test 1.45 K/ L 1.18-3.74 klvx=858) MONOCYTES ABSOLUTE COUNT (BEAKER) (test 1.19 K/ L 0.24-0.36 qdov=312) EOSINOPHILS ABSOLUTE COUNT (BEAKER) (test 0.62 K/ L 0.04-0.36 awfx=392) BASOPHILS ABSOLUTE COUNT (BEAKER) (test 0.10 K/ L 0.01-0.08 boih=039) IMMATURE GRANULOCYTES-RELATIVE PERCENT (BEAKER) 4 % 0-1 (test bjpd=8846) POCT-GLUCOSE [id number] 05:47:00 Test Item Value Reference Range Comments POC-GLUCOSE METER (BEAKER) 154 mg/dL 70-110 TESTED AT [address] (test obmp=9686) [facility] [address] POCT-GLUCOSE [id number] 00:16:00 Test Item Value Reference Range Comments POC-GLUCOSE METER (BEAKER) 218 mg/dL 70-110 TESTED AT [address] (test fqzo=5763) [facility] [address] RAD, CHEST, 1 VIEW, NON [id number] 19:44:00Reason for exam:->HD line placement Should this [...] MDReport Verified Date/Time: 05/22/2018 19:44:26 Reading Location: [address] ConsultReading Room POCT-GLUCOSE [id number] 17:46:00 Test Item Value Reference Range Comments POC-GLUCOSE METER (BEAKER) 284 mg/dL 70-[address] [facility] [address] [facility] (test mrwa=0189) [facility] [address] SPUTUM CULTURE + GRAM [id number] 14:30:00 Test Item Value Reference Range Comments CULTURE (BEAKER) (test equh=2544) See comment GRAM STAIN RESULT (BEAKER) (test 2+ WBCs sjkt=0724) GRAM STAIN RESULT (BEAKER) (test 0-5 epithelial cells qhcm=019891) GRAM STAIN RESULT (BEAKER) (test <1+ gram negative rods rxjx=856055) <1+ yeastNo normal respiratory lor presentPOCT-GLUCOSE [id number] 12: 16:00 Test Item Value Reference Range Comments POC-GLUCOSE METER (BEAKER) 302 mg/dL 70-[address] [facility] [address] [facility] (test hvqg=2494) [facility] [address] RAD, CHEST, 1 VIEW, NON [id number] 07:34:00Reason for exam:-> pneumoniaShould this be performed [...] SKINNEReport Verified Date/Time: 05/22/2018 07:34:31 Reading Location: [facility] C013V Neuro Reading Room BLOOD [id number] 07:01:00 Test Item Value Reference Range Comments CULTURE (BEAKER) (test ehkp=1567) No growth in 5 days BLOOD [id number] 07:01:00 Test Item Value Reference Range Comments CULTURE (BEAKER) (test vbig=0703) No growth in 5 days BASIC METABOLIC [id number] 06:19:00 Test Item Value Reference Range Comments SODIUM (BEAKER) (test 140 meq/L 136-145 mtlz=351) POTASSIUM (BEAKER) (test 3.7 meq/L 3.5-5.1 jlrf=173) CHLORIDE (BEAKER) (test 101 meq/L 98-107 lkad=363) CO2 (BEAKER) (test 29 meq/L 22-29 pibf=868) BLOOD UREA NITROGEN 35 mg/dL 7-21 (BEAKER) (test zard=908) CREATININE (BEAKER) (test 2.45 mg/dL 0.57-1.25 lgnk=421) GLUCOSE RANDOM (BEAKER) 221 mg/dL 70-105 (test jvwq=198) CALCIUM (BEAKER) (test 8.7 mg/dL 8.4-10.2 dnij=883) EGFR (BEAKER) (test 20 mL/min/1.73 sq m ESTIMATED GFR IS NOT tenz=6140) ACCURATE CREATININE CLEARANCE IN PREDICTING GLOMERULAR FILTRATION RATE. ESTIMATED GFR IS NOT APPLICABLE FOR DIALYSIS PATIENTS. [id number] 06:17:00 Test Item Value Reference Range Comments PHOSPHORUS (BEAKER) (test itag=254) 2.5 mg/dL 2.3-4.7 [id number] 06:17:00 Test Item Value Reference Range Comments MAGNESIUM (BEAKER) (test ryqo=069) 2.1 mg/dL 1.6-2.6 CBC W/PLT COUNT & AUTO [id number] 05:56:00 Test Item Value Reference Range Comments WHITE BLOOD CELL COUNT (BEAKER) (test kksr=962) 7.2 K/ L 3.5-10.5 RED BLOOD CELL COUNT (BEAKER) (test tuje=989) 2.66 M/ L 3.93-5.22 HEMOGLOBIN (BEAKER) (test cakb=224) 7.8 GM/DL 11.2-15.7 HEMATOCRIT (BEAKER) (test cvel=289) 24.5 % 34.1-44.9 MEAN CORPUSCULAR VOLUME (BEAKER) (test utom=871) 92.1 fL 79.4-94.8 MEAN CORPUSCULAR HEMOGLOBIN (BEAKER) (test 29.3 pg 25.6-32.2 avmi=849) MEAN CORPUSCULAR HEMOGLOBIN CONC (BEAKER) (test 31.8 GM/DL 32.2-35.5 rsik=919) RED CELL DISTRIBUTION WIDTH (BEAKER) (test 14.8 % 11.7-14.4 qwow=705) PLATELET COUNT (BEAKER) (test btox=284) 164 K/CU MM 150-450 MEAN PLATELET VOLUME (BEAKER) (test cukp=145) 12.0 fL 9.4-12.3 NUCLEATED RED BLOOD CELLS (BEAKER) (test 0 /100 WBC 0-0 sxth=069) NEUTROPHILS RELATIVE PERCENT (BEAKER) (test 60 % cick=146) LYMPHOCYTES RELATIVE PERCENT (BEAKER) (test 15 % yaqg=264) MONOCYTES RELATIVE PERCENT (BEAKER) (test 16 % reww=988) EOSINOPHILS RELATIVE PERCENT (BEAKER) (test 4 % qlln=626) BASOPHILS RELATIVE PERCENT (BEAKER) (test 1 % mgxh=980) NEUTROPHILS ABSOLUTE COUNT (BEAKER) (test 4.36 K/ L 1.56-6.13 nqky=065) LYMPHOCYTES ABSOLUTE COUNT (BEAKER) (test 1.10 K/ L 1.18-3.74 czpi=311) MONOCYTES ABSOLUTE COUNT (BEAKER) (test 1.16 K/ L 0.24-0.36 edvm=656) EOSINOPHILS ABSOLUTE COUNT (BEAKER) (test 0.28 K/ L 0.04-0.36 thnt=689) BASOPHILS ABSOLUTE COUNT (BEAKER) (test 0.05 K/ L 0.01-0.08 qkmv=015) IMMATURE GRANULOCYTES-RELATIVE PERCENT (BEAKER) 4 % 0-1 (test qxuf=1497) POCT-GLUCOSE [id number] 17:46:00 Test Item Value Reference Range Comments POC-GLUCOSE METER (BEAKER) 147 mg/dL 70-[address] [facility] [address] (test aili=5970) [facility] [address] RESPIRATORY PANEL [id number] 14:16:00 Test Item Value Reference Range Comments HUMAN METAPNEUMOVIRUS (BEAKER) (test Not detected Not detected, Equivocal yoym=5872) RHINOVIRUS (BEAKER) (test lktk=5434) Not detected Not detected, Equivocal INFLUENZA A (BEAKER) (test aqkr=8635) Not detected Not detected, Equivocal INFLUENZA A (NO SUBTYPE) (test Not detected, Equivocal avat=8342) INFLUENZA A SUBTYPE H1 (BEAKER) (test Not detected, Equivocal sxkx=5646) INFLUENZA A SUBTYPE H3 (BEAKER) (test Not detected, Equivocal mcpr=9007) INFLUENZA A SUBTYPE H1-2009 (BEAKER) Not detected, Equivocal (test oayq=1952) INFLUENZA B (BEAKER) (test fjei=2903) Not detected Not detected, Equivocal RESPIRATORY SYNCYTIAL VIRUS (BEAKER) Not detected Not detected, Equivocal (test snfv=5371) PARAINFLUENZA VIRUS 1 (BEAKER) (test Not detected Not detected, Equivocal toak=6142) PARAINFLUENZA VIRUS 2 (BEAKER) (test Not detected Not detected, Equivocal cxix=5613) PARAINFLUENZA VIRUS 3 (BEAKER) (test Not detected Not detected, Equivocal boul=4071) PARAINFLUENZA VIRUS 4 (BEAKER) (test Not detected Not detected, Equivocal pexk=0162) ADENOVIRUS (BEAKER) (test ylss=1949) Not detected Not detected, Equivocal CORONAVIRUS 229E (BEAKER) (test Not detected Not detected, Equivocal eisf=9945) CORONAVIRUS HKU1 (BEAKER) (test Not detected Not detected, Equivocal jhwo=4104) CORONAVIRUS NL63 (BEAKER) (test Not detected Not detected, Equivocal zduc=8123) CORONAVIRUS OC43 (BEAKER) (test Not detected Not detected, Equivocal ktph=1594) BORDETELLA PERTUSSIS (BEAKER) (test Not detected Not detected, Equivocal nsvw=7833) CHLAMYDOPHILA PNEUMONIAE (BEAKER) (test Not detected Not detected, Equivocal nhrg=2742) MYCOPLASMA PNEUMONIAE (BEAKER) (test Not detected Not detected, Equivocal xewb=1804) Other viruses and bacteria not targeted by this PCR panel cannot be excluded; therefore clinical correlation and follow up of serology, culture results, and other molecular studies is required. The results are not intended to be used as the sole means for clinical diagnosis or patient management decisions. This sample was tested at the [facility] using the [employer] Respiratory Panel. It is FDA cleared and has been verified and approved by the [facility] for clinical use on nasal swab specimens. It is not FDA-cleared for use on bronchial wash/lavage samples. However, for this sample type, validation was performed and test characteristics were determined and approved, by [facility] for clinical use under the Clinical Laboratory Improvement Amendments (CLIA) of 1988 requirements. Therefore, FDA clearance isnot required. This laboratory is CLIA-certified and [employer] ([employer])-accredited to perform high complexity testing.POCT-GLUCOSE [id number] 13:35:00 Test Item Value Reference Range Comments POC-GLUCOSE METER (BEAKER) 228 mg/dL 70-[address] [facility] [address] (test ndyk=9578) [facility] [address] BLOOD GAS, [id number] 10:42:00 Test Item Value Reference Range Comments PH ARTERIAL (BEAKER) (test hjhq=628) 7.41 7.35-7.45 PCO2 ARTERIAL (BEAKER) (test bmgj=247) 42 mmHg 35-45 PO2 ARTERIAL (BEAKER) (test vslf=217) 167 mmHg 80-90 O2 SATURATION ARTERIAL (BEAKER) (test rryt=470) 99.1 % 96.0-97.0 HCO3 ARTERIAL (BEAKER) (test ucxy=190) 26 mmol/L 21-29 BASE EXCESS ARTERIAL (BEAKER) (test jhic=149) 1.0 mmol/L -2.0-3.0 PATIENT TEMPERATURE (BEAKER) (test tmux=9393) 37.5 C FIO2 (BEAKER) (test pwtb=8281) 35.0 % URINE [id number] 09:06:00 Test Item Value Reference Range Comments CULTURE (BEAKER) (test >100,000 col/mL Madie glabrata esha=4508) POCT-GLUCOSE [id number] 05:53:00 Test Item Value Reference Range Comments POC-GLUCOSE METER (BEAKER) 184 mg/dL 70-[address] [facility] [address] (test mjgq=2562) [facility] [address] RAD, CHEST, 1 VIEW, NON [id number] 05:50:00Reason for exam:-> pneumoniaShould this be performed at the bedside?->YesFINAL REPORT RAD, CHEST, 1 VIEW, NON DEPT INDICATION: pneumonia COMPARISON: Prior day's exam FINDINGS: Portable frontal view of the chest. IMPRESSION: Support Lines: Stable. Lungs and pleura: Unchanged airspace and pleural opacities. No pneumothorax.Heart and mediastinum: Stable contours. Additional findings: None. Signed: Carmel [place] Verified Date/Time: 2018 05:50:08 Reading Location: [address] Transitional Reading Room BASIC METABOLIC [id number] 05:13:00 Test Item Value Reference Range Comments SODIUM (BEAKER) (test 132 meq/L 136-145 oqqe=754) POTASSIUM (BEAKER) (test 4.3 meq/L 3.5-5.1 lqzp=303) CHLORIDE (BEAKER) (test 97 meq/L 98-107 kiyz=407) CO2 (BEAKER) (test 25 meq/L 22-29 zwrx=850) BLOOD UREA NITROGEN 69 mg/dL 7-21 (BEAKER) (test eunq=020) CREATININE (BEAKER) (test 3.74 mg/dL 0.57-1.25 ayze=605) GLUCOSE RANDOM (BEAKER) 147 mg/dL 70-105 (test bowk=064) CALCIUM (BEAKER) (test 8.8 mg/dL 8.4-10.2 hjvz=037) EGFR (BEAKER) (test 12 mL/min/1.73 sq m ESTIMATED GFR IS NOT lwrl=1999) ACCURATE CREATININE CLEARANCE IN PREDICTING GLOMERULAR FILTRATION RATE. ESTIMATED GFR IS NOT APPLICABLE FOR DIALYSIS PATIENTS. [id number] 05:12:00 Test Item Value Reference Range Comments MAGNESIUM (BEAKER) (test yrpn=286) 2.5 mg/dL 1.6-2.6 CBC W/PLT COUNT & AUTO [id number] 05:04:00 Test Item Value Reference Range Comments WHITE BLOOD CELL COUNT (BEAKER) (test rqiu=962) 6.6 K/ L 3.5-10.5 RED BLOOD CELL COUNT (BEAKER) (test pgul=233) 2.62 M/ L 3.93-5.22 HEMOGLOBIN (BEAKER) (test fhnz=348) 7.6 GM/DL 11.2-15.7 HEMATOCRIT (BEAKER) (test jgqr=427) 24.2 % 34.1-44.9 MEAN CORPUSCULAR VOLUME (BEAKER) (test vume=592) 92.4 fL 79.4-94.8 MEAN CORPUSCULAR HEMOGLOBIN (BEAKER) (test 29.0 pg 25.6-32.2 woys=876) MEAN CORPUSCULAR HEMOGLOBIN CONC (BEAKER) (test 31.4 GM/DL 32.2-35.5 iigu=490) RED CELL DISTRIBUTION WIDTH (BEAKER) (test 15.0 % 11.7-14.4 bzxo=344) PLATELET COUNT (BEAKER) (test prnj=735) 151 K/CU MM 150-450 MEAN PLATELET VOLUME (BEAKER) (test ojnm=747) 11.9 fL 9.4-12.3 NUCLEATED RED BLOOD CELLS (BEAKER) (test 0 /100 WBC 0-0 qltu=309) NEUTROPHILS RELATIVE PERCENT (BEAKER) (test 56 % eqmz=116) LYMPHOCYTES RELATIVE PERCENT (BEAKER) (test 22 % cqdt=088) MONOCYTES RELATIVE PERCENT (BEAKER) (test 16 % plys=650) EOSINOPHILS RELATIVE PERCENT (BEAKER) (test 5 % xsnt=895) BASOPHILS RELATIVE PERCENT (BEAKER) (test 1 % ivax=046) NEUTROPHILS ABSOLUTE COUNT (BEAKER) (test 3.68 K/ L 1.56-6.13 jjjf=672) LYMPHOCYTES ABSOLUTE COUNT (BEAKER) (test 1.42 K/ L 1.18-3.74 znuy=972) MONOCYTES ABSOLUTE COUNT (BEAKER) (test 1.08 K/ L 0.24-0.36 qbcj=647) EOSINOPHILS ABSOLUTE COUNT (BEAKER) (test 0.35 K/ L 0.04-0.36 xqko=949) BASOPHILS ABSOLUTE COUNT (BEAKER) (test 0.03 K/ L 0.01-0.08 scvy=390) IMMATURE GRANULOCYTES-RELATIVE PERCENT (BEAKER) 1 % 0-1 (test njex=9328) POCT-GLUCOSE [id number] 01:14:00 Test Item Value Reference Range Comments POC-GLUCOSE METER (BEAKER) 215 mg/dL 70-110 TESTED AT [address] (test ihnt=8404) [facility] [id number] POCT-GLUCOSE [id number] 17:46:00 Test Item Value Reference Range Comments POC-GLUCOSE METER (BEAKER) 170 mg/dL 70-110 TESTED AT [address] (test xrpq=3618) [facility] [id number] POCT-GLUCOSE [id number] 12:14:00 Test Item Value Reference Range Comments POC-GLUCOSE METER (BEAKER) 300 mg/dL 70-110 TESTED AT [address] (test rhlr=5375) [facility] [id number] POCT-GLUCOSE [id number] 06:46:00 Test Item Value Reference Range Comments POC-GLUCOSE METER (BEAKER) 178 mg/dL 70-110 TESTED AT [address] (test dvyf=2803) [facility] [id number] RAD, CHEST, 1 VIEW, NON [id number] 06:23:00Reason for exam:-> pneumoniaShould this be performed [...] Hale Verified Date/Time: 2018 06:23:41 Reading Location: [address] Reading Room [id number] 05:14:00 Test Item Value Reference Range Comments PHOSPHORUS (BEAKER) (test qhya=559) 4.5 mg/dL 2.3-4.7 [id number] 05:14:00 Test Item Value Reference Range Comments MAGNESIUM (BEAKER) (test ilxq=131) 2.3 mg/dL 1.6-2.6 LACTATE DEHYDROGENASE (LDH)2018-05-20 05:14:00 Test Item Value Reference Range Comments LACTATE DEHYDROGENASE (BEAKER) (test xver=289) 169 U/L 125-220 BASIC METABOLIC [id number] 05:14:00 Test Item Value Reference Range Comments SODIUM (BEAKER) (test 135 meq/L 136-145 eqpu=345) POTASSIUM (BEAKER) (test 4.1 meq/L 3.5-5.1 wfof=357) CHLORIDE (BEAKER) (test 99 meq/L 98-107 ugnd=592) CO2 (BEAKER) (test 27 meq/L 22-29 swcw=308) BLOOD UREA NITROGEN 44 mg/dL 7-21 (BEAKER) (test dscw=478) CREATININE (BEAKER) (test 2.88 mg/dL 0.57-1.25 nvnn=191) GLUCOSE RANDOM (BEAKER) 144 mg/dL 70-105 (test xywg=879) CALCIUM (BEAKER) (test 8.7 mg/dL 8.4-10.2 tfrm=744) EGFR (BEAKER) (test 16 mL/min/1.73 sq m ESTIMATED GFR IS NOT zhjk=8452) ACCURATE CREATININE CLEARANCE IN PREDICTING GLOMERULAR FILTRATION RATE. ESTIMATED GFR IS NOT APPLICABLE FOR DIALYSIS PATIENTS. CBC W/PLT COUNT & AUTO [id number] 05:03:00 Test Item Value Reference Range Comments WHITE BLOOD CELL COUNT (BEAKER) (test qkae=124) 6.1 K/ L 3.5-10.5 RED BLOOD CELL COUNT (BEAKER) (test tkan=898) 2.63 M/ L 3.93-5.22 HEMOGLOBIN (BEAKER) (test vqqj=589) 7.8 GM/DL 11.2-15.7 HEMATOCRIT (BEAKER) (test wslo=302) 24.8 % 34.1-44.9 MEAN CORPUSCULAR VOLUME (BEAKER) (test nmtz=161) 94.3 fL 79.4-94.8 MEAN CORPUSCULAR HEMOGLOBIN (BEAKER) (test 29.7 pg 25.6-32.2 onfj=359) MEAN CORPUSCULAR HEMOGLOBIN CONC (BEAKER) (test 31.5 GM/DL 32.2-35.5 zwcw=644) RED CELL DISTRIBUTION WIDTH (BEAKER) (test 15.2 % 11.7-14.4 xcew=376) PLATELET COUNT (BEAKER) (test leoi=692) 136 K/CU MM 150-450 MEAN PLATELET VOLUME (BEAKER) (test dqak=277) 11.8 fL 9.4-12.3 NUCLEATED RED BLOOD CELLS (BEAKER) (test 0 /100 WBC 0-0 fbpa=611) NEUTROPHILS RELATIVE PERCENT (BEAKER) (test 60 % likp=681) LYMPHOCYTES RELATIVE PERCENT (BEAKER) (test 21 % dmbk=582) MONOCYTES RELATIVE PERCENT (BEAKER) (test 11 % cnsh=333) EOSINOPHILS RELATIVE PERCENT (BEAKER) (test 7 % njgg=658) BASOPHILS RELATIVE PERCENT (BEAKER) (test 1 % bexf=624) NEUTROPHILS ABSOLUTE COUNT (BEAKER) (test 3.67 K/ L 1.56-6.13 fxem=092) LYMPHOCYTES ABSOLUTE COUNT (BEAKER) (test 1.27 K/ L 1.18-3.74 stom=951) MONOCYTES ABSOLUTE COUNT (BEAKER) (test 0.67 K/ L 0.24-0.36 sqws=074) EOSINOPHILS ABSOLUTE COUNT (BEAKER) (test 0.44 K/ L 0.04-0.36 pzcx=333) BASOPHILS ABSOLUTE COUNT (BEAKER) (test 0.04 K/ L 0.01-0.08 lewe=923) IMMATURE GRANULOCYTES-RELATIVE PERCENT (BEAKER) 1 % 0-1 (test pgdq=9968) POCT-GLUCOSE [id number] 23:07:00 Test Item Value Reference Range Comments POC-GLUCOSE METER (BEAKER) 135 mg/dL 70-[address] [facility] [address] [facility] (test gfbu=3236) [facility] [address] MRSA [id number] 18:13:00 Test Item Value Reference Range Comments CULTURE (BEAKER) (test ucuh=2235) No MRSA isolated BRONCHIAL CULTURE + GRAM [id number] 18:05:00 Test Item Value Reference Range Comments CULTURE (BEAKER) (test kpwu=1097) See comment GRAM STAIN RESULT (BEAKER) (test 1+ White blood cells seen snwa=1431) GRAM STAIN RESULT (BEAKER) (test No organisms seen rqkd=49511) <1+ yeastPOCT-GLUCOSE [id number] 18:00:00 Test Item Value Reference Range Comments POC-GLUCOSE METER (BEAKER) 197 mg/dL 70-110 TESTED AT [address] (test ngnh=7880) [facility] [address] CT, CHEST WITH IV CONTRAST- PE TEST [id number] 12:30:00FINAL REPORT CT Chest PE Protocol dated [...] Fischer MDReport Verified Date/Time: 12:30:51 Reading Location: [facility] [address] [place] [address] Consult Reading Room Electronicallysigned by: CLOVIS FISCHER M.D. on 05/19/2018 12:30 PMPOCT-GLUCOSE [id number] 11:55:00 Test Item Value Reference Range Comments POC-GLUCOSE METER (BEAKER) 89 mg/dL 70-[address] [facility] [address] (test giwt=2747) [facility] [address] [id number] 10:04:00 Test Item Value Reference Range Comments PROCALCITONIN (BEAKER) (test ykeh=5951) 1.60 ng/mL <0.05 SEPSIS RISK (ng/mL)Low: 0.05-0.50Intermediate: 0.51-2.00High: & gt;=2.01BASIC METABOLIC [id number] 06:30:00 Test Item Value Reference Range Comments SODIUM (BEAKER) (test 135 meq/L 136-145 xqul=196) POTASSIUM (BEAKER) (test 3.8 meq/L 3.5-5.1 hpjm=268) CHLORIDE (BEAKER) (test 98 meq/L 98-107 jlvh=055) CO2 (BEAKER) (test 28 meq/L 22-29 mebs=664) BLOOD UREA NITROGEN 23 mg/dL 7-21 (BEAKER) (test urkr=394) CREATININE (BEAKER) (test 1.95 mg/dL 0.57-1.25 voub=209) GLUCOSE RANDOM (BEAKER) 180 mg/dL 70-105 (test ttky=756) CALCIUM (BEAKER) (test 8.6 mg/dL 8.4-10.2 ekwi=640) EGFR (BEAKER) (test 26 mL/min/1.73 sq m ESTIMATED GFR IS NOT fvrt=1955) ACCURATE CREATININE CLEARANCE IN PREDICTING GLOMERULAR FILTRATION RATE. ESTIMATED GFR IS NOT APPLICABLE FOR DIALYSIS PATIENTS. [id number] 06:28:00 Test Item Value Reference Range Comments PHOSPHORUS (BEAKER) (test mgrr=547) 3.2 mg/dL 2.3-4.7 [id number] 06:28:00 Test Item Value Reference Range Comments MAGNESIUM (BEAKER) (test jcqi=906) 2.1 mg/dL 1.6-2.6 B-TYPE NATRIURETIC FACTOR (BNP)2018-05-19 06:25:00 Test Item Value Reference Range Comments B-TYPE NATRIURETIC PEPTIDE (BEAKER) (test 227 pg/mL 0-100 evsr=482) POCT-GLUCOSE [id number] 06:17:00 Test Item Value Reference Range Comments POC-GLUCOSE METER (BEAKER) 222 mg/dL 70-[address] [facility] [address] [facility] (test kkig=4334) [facility] [address] CBC W/PLT COUNT & AUTO [id number] 05:32:00 Test Item Value Reference Range Comments WHITE BLOOD CELL COUNT (BEAKER) (test fxrf=060) 5.8 K/ L 3.5-10.5 RED BLOOD CELL COUNT (BEAKER) (test tbry=278) 2.51 M/ L 3.93-5.22 HEMOGLOBIN (BEAKER) (test eqyy=681) 7.4 GM/DL 11.2-15.7 HEMATOCRIT (BEAKER) (test rtdn=664) 23.7 % 34.1-44.9 MEAN CORPUSCULAR VOLUME (BEAKER) (test xtey=724) 94.4 fL 79.4-94.8 MEAN CORPUSCULAR HEMOGLOBIN (BEAKER) (test 29.5 pg 25.6-32.2 olme=331) MEAN CORPUSCULAR HEMOGLOBIN CONC (BEAKER) (test 31.2 GM/DL 32.2-35.5 jall=012) RED CELL DISTRIBUTION WIDTH (BEAKER) (test 15.8 % 11.7-14.4 ryne=711) PLATELET COUNT (BEAKER) (test gejx=658) 135 K/CU MM 150-450 MEAN PLATELET VOLUME (BEAKER) (test umca=975) 11.7 fL 9.4-12.3 NUCLEATED RED BLOOD CELLS (BEAKER) (test 0 /100 WBC 0-0 oikf=480) NEUTROPHILS RELATIVE PERCENT (BEAKER) (test 72 % pjxm=156) LYMPHOCYTES RELATIVE PERCENT (BEAKER) (test 14 % bhyr=439) MONOCYTES RELATIVE PERCENT (BEAKER) (test 8 % ryko=235) EOSINOPHILS RELATIVE PERCENT (BEAKER) (test 5 % djhc=036) BASOPHILS RELATIVE PERCENT (BEAKER) (test 1 % jely=799) NEUTROPHILS ABSOLUTE COUNT (BEAKER) (test 4.18 K/ L 1.56-6.13 roje=399) LYMPHOCYTES ABSOLUTE COUNT (BEAKER) (test 0.83 K/ L 1.18-3.74 uwsq=787) MONOCYTES ABSOLUTE COUNT (BEAKER) (test 0.45 K/ L 0.24-0.36 jdsy=682) EOSINOPHILS ABSOLUTE COUNT (BEAKER) (test 0.27 K/ L 0.04-0.36 wjlw=873) BASOPHILS ABSOLUTE COUNT (BEAKER) (test 0.03 K/ L 0.01-0.08 ruwa=715) IMMATURE GRANULOCYTES-RELATIVE PERCENT (BEAKER) 1 % 0-1 (test tbup=3699) POCT-GLUCOSE [id number] 23:43:00 Test Item Value Reference Range Comments POC-GLUCOSE METER (BEAKER) 172 mg/dL 70-110 TESTED AT [address] (test gcxc=4662) [place] [address] POCT-GLUCOSE [id number] 18:29:00 Test Item Value Reference Range Comments POC-GLUCOSE METER (BEAKER) 149 mg/dL 70-110 TESTED AT [address] (test nlqv=0641) [place] [address] HEMOGLOBIN AND [id number] 16:32:00 Test Item Value Reference Range Comments HEMOGLOBIN (BEAKER) (test ofwj=779) 8.2 GM/DL 11.2-15.7 HEMATOCRIT (BEAKER) (test cgbv=930) 26.4 % 34.1-44.9 BODY FLUID CULTURE + GRAM [id number] 13:39:00 Test Item Value Reference Range Comments CULTURE (BEAKER) (test hnih=4094) No growth GRAM STAIN RESULT (BEAKER) (test 1+ WBCs jpno=2106) GRAM STAIN RESULT (BEAKER) (test No organisms seen fzbg=40591) POCT-GLUCOSE [id number] 11:45:00 Test Item Value Reference Range Comments POC-GLUCOSE METER (BEAKER) 79 mg/dL 70-110 TESTED AT [address] (test axhj=0513) [place] [address] HEMOGLOBIN AND [id number] 09:18:00 Test Item Value Reference Range Comments HEMOGLOBIN (BEAKER) (test thma=323) 7.3 GM/DL 11.2-15.7 HEMATOCRIT (BEAKER) (test ocqd=908) 24.4 % 34.1-44.9 RAD, CHEST, 1 VIEW, NON [id number] 08:48:00Reason for exam:->acute pulmonary insufficiencyFINAL REPORT Follow up Chest radiograph Clinical History: Acute pulmonary insufficiencyComparison: MayViews: One AZERI Chest x-ray:The cardiac and mediastinal silhouettes are [...] Verified Date/Time: 05/18/2018 08:48:08 Reading Location : [facility] Radiology Reading Room POCT-GLUCOSE [id number] 06:15:00 Test Item Value Reference Range Comments POC-GLUCOSE METER (BEAKER) 107 mg/dL 70-110 TESTED AT [address] (test sseg=4635) [facility] [address] BASIC METABOLIC [id number] 04:27:00 Test Item Value Reference Range Comments SODIUM (BEAKER) (test 133 meq/L 136-145 xyvr=966) POTASSIUM (BEAKER) (test 4.7 meq/L 3.5-5.1 yhbp=282) CHLORIDE (BEAKER) (test 99 meq/L 98-107 oogf=683) CO2 (BEAKER) (test 24 meq/L 22-29 uopk=202) BLOOD UREA NITROGEN 28 mg/dL 7-21 (BEAKER) (test hmfz=904) CREATININE (BEAKER) (test 2.80 mg/dL 0.57-1.25 andq=242) GLUCOSE RANDOM (BEAKER) 101 mg/dL 70-105 (test ujyi=864) CALCIUM (BEAKER) (test 8.6 mg/dL 8.4-10.2 hvph=334) EGFR (BEAKER) (test 17 mL/min/1.73 sq m ESTIMATED GFR IS NOT megc=5357) ACCURATE CREATININE CLEARANCE IN PREDICTING GLOMERULAR FILTRATION RATE. ESTIMATED GFR IS NOT APPLICABLE FOR DIALYSIS PATIENTS. [id number] 04:26:00 Test Item Value Reference Range Comments PHOSPHORUS (BEAKER) (test gdmm=420) 4.4 mg/dL 2.3-4.7 [id number] 04:26:00 Test Item Value Reference Range Comments MAGNESIUM (BEAKER) (test tepp=567) 2.7 mg/dL 1.6-2.6 HEMOGLOBIN AND [id number] 04:06:00 Test Item Value Reference Range Comments HEMOGLOBIN (BEAKER) (test oqam=226) 7.5 GM/DL 11.2-15.7 HEMATOCRIT (BEAKER) (test bpbm=679) 24.6 % 34.1-44.9 CBC W/PLT COUNT & AUTO [id number] 04:06:00 Test Item Value Reference Range Comments WHITE BLOOD CELL COUNT (BEAKER) (test silo=273) 8.4 K/ L 3.5-10.5 RED BLOOD CELL COUNT (BEAKER) (test znqc=197) 2.59 M/ L 3.93-5.22 HEMOGLOBIN (BEAKER) (test sodg=474) 7.5 GM/DL 11.2-15.7 HEMATOCRIT (BEAKER) (test ohsd=764) 24.6 % 34.1-44.9 MEAN CORPUSCULAR VOLUME (BEAKER) (test jhqz=790) 95.0 fL 79.4-94.8 MEAN CORPUSCULAR HEMOGLOBIN (BEAKER) (test 29.0 pg 25.6-32.2 ssrh=495) MEAN CORPUSCULAR HEMOGLOBIN CONC (BEAKER) (test 30.5 GM/DL 32.2-35.5 dxuu=608) RED CELL DISTRIBUTION WIDTH (BEAKER) (test 16.1 % 11.7-14.4 cnfs=857) PLATELET COUNT (BEAKER) (test pubr=633) 146 K/CU MM 150-450 MEAN PLATELET VOLUME (BEAKER) (test bkuf=391) 11.9 fL 9.4-12.3 NUCLEATED RED BLOOD CELLS (BEAKER) (test 0 /100 WBC 0-0 ohfd=114) NEUTROPHILS RELATIVE PERCENT (BEAKER) (test 75 % cfqz=348) LYMPHOCYTES RELATIVE PERCENT (BEAKER) (test 12 % gktr=991) MONOCYTES RELATIVE PERCENT (BEAKER) (test 7 % fopp=088) EOSINOPHILS RELATIVE PERCENT (BEAKER) (test 5 % fumz=985) BASOPHILS RELATIVE PERCENT (BEAKER) (test 1 % mctc=018) NEUTROPHILS ABSOLUTE COUNT (BEAKER) (test 6.33 K/ L 1.56-6.13 qjic=629) LYMPHOCYTES ABSOLUTE COUNT (BEAKER) (test 0.99 K/ L 1.18-3.74 poif=413) MONOCYTES ABSOLUTE COUNT (BEAKER) (test 0.60 K/ L 0.24-0.36 umwf=656) EOSINOPHILS ABSOLUTE COUNT (BEAKER) (test 0.38 K/ L 0.04-0.36 ttyh=381) BASOPHILS ABSOLUTE COUNT (BEAKER) (test 0.06 K/ L 0.01-0.08 zslc=679) IMMATURE GRANULOCYTES-RELATIVE PERCENT (BEAKER) 0 % 0-1 (test bfyk=5739) HEMOGLOBIN AND [id number] 00:12:00 Test Item Value Reference Range Comments HEMOGLOBIN (BEAKER) (test usxg=631) 8.0 GM/DL 11.2-15.7 HEMATOCRIT (BEAKER) (test nsyw=397) 25.6 % 34.1-44.9 POCT-GLUCOSE [id number] 00:12:00 Test Item Value Reference Range Comments POC-GLUCOSE METER (BEAKER) 121 mg/dL 70-110 TESTED AT [address] (test ulfh=2658) [place] [address] POCT-GLUCOSE [id number] 21:56:00 Test Item Value Reference Range Comments POC-GLUCOSE METER (BEAKER) 69 mg/dL 70-110 TESTED AT [address] (test fytw=8671) [place] [id number] POCT-GLUCOSE [id number] 19:36:00 Test Item Value Reference Range Comments POC-GLUCOSE METER (BEAKER) 71 mg/dL 70-110 TESTED AT [address] (test ijnp=8519) [place] [address] POCT-GLUCOSE [id number] 18:23:00 Test Item Value Reference Range Comments POC-GLUCOSE METER (BEAKER) 71 mg/dL 70-110 TESTED AT [address] (test wihq=9148) [place] [address] HEMOGLOBIN AND [id number] 17:18:00 Test Item Value Reference Range Comments HEMOGLOBIN (BEAKER) (test utzc=310) 7.5 GM/DL 11.2-15.7 HEMATOCRIT (BEAKER) (test nlhp=735) 24.6 % 34.1-44.9 LEGIONELLA ANTIGEN, [id number] 12:23:00 Test Item Value Reference Range Comments L. PNEUMOPHILA SEROGP 1 Negative - see Negative for L. UR AG (BEAKER) (test comment pneumophila serogroup 1 fxkl=9221) antigen, suggesting no recent or current infection with this serogroup. Legionellosis cannot be ruled out since other serogroups and species may cause disease. STREP PNEUMONIAE [id number] 12:23:00 Test Item Value Reference Range Comments STREP PNEUMONIAE ANTIGEN Presumptive negative for Presumptive negative for (BEAKER) (test pneumococcal pneumonia - pneumococcal pneumonia - iess=4626) see comment see commen Presumptive negative for pneumococcal pneumonia, suggesting no current or recent pneumococcal infection. Infection due to S. pneumoniae cannot be ruled out since the antigen present in the sample may be below the detection limit of the test.POCT-GLUCOSE [id number] 12:09:00 Test Item Value Reference Range Comments POC-GLUCOSE METER (BEAKER) 141 mg/dL 70-[address] [facility] [address] [facility] (test kgfr=8975) [facility] [address] POCT-GLUCOSE [id number] 09:25:00 Test Item Value Reference Range Comments POC-GLUCOSE METER (BEAKER) 142 mg/dL 70-110 TESTED AT [address] (test gbwi=0541) [facility] [address] RAD, ABDOMEN/KUB, 1 VIEW [id number] 08:21:00Reason for exam:->ileus, NG tube positionShould this [...] MDReport Verified Date/Time: 05/17/2018 08:21:14 Reading Location: [facility] Radiology Reading Room RAD, CHEST, 1 VIEW, NON [id number] 08:14:00Reason for exam:->ET tube position, pneumonia, pulmonary [...] Verified Date/Time: 05/17/2018 08:14: 14 Reading Location: [facility] Radiology Reading Room POCT-GLUCOSE [id number] 05:59:00 Test Item Value Reference Range Comments POC-GLUCOSE METER (BEAKER) 159 mg/dL 70-[address] [facility] [address] [facility] (test ndfr=7960) [facility] [address] CBC (HEMOGRAM ONLY)2018-05-17 05:41:00 Test Item Value Reference Range Comments WHITE BLOOD CELL COUNT (BEAKER) (test frzf=238) 8.1 K/ L 3.5-10.5 RED BLOOD CELL COUNT (BEAKER) (test qnrm=221) 2.27 M/ L 3.93-5.22 HEMOGLOBIN (BEAKER) (test bhmz=994) 6.6 GM/DL 11.2-15.7 HEMATOCRIT (BEAKER) (test aaig=984) 21.4 % 34.1-44.9 MEAN CORPUSCULAR VOLUME (BEAKER) (test vcds=656) 94.3 fL 79.4-94.8 MEAN CORPUSCULAR HEMOGLOBIN (BEAKER) (test 29.1 pg 25.6-32.2 azic=476) MEAN CORPUSCULAR HEMOGLOBIN CONC (BEAKER) (test 30.8 GM/DL 32.2-35.5 erjf=575) RED CELL DISTRIBUTION WIDTH (BEAKER) (test 15.9 % 11.7-14.4 syft=202) PLATELET COUNT (BEAKER) (test viux=693) 153 K/CU MM 150-450 MEAN PLATELET VOLUME (BEAKER) (test cedl=745) 12.2 fL 9.4-12.3 NUCLEATED RED BLOOD CELLS (BEAKER) (test 0 /100 WBC 0-0 rhzn=008) COMPREHENSIVE METABOLIC [id number] 04:15:00 Test Item Value Reference Range Comments TOTAL PROTEIN (BEAKER) 5.0 gm/dL 6.0-8.3 (test dnus=870) ALBUMIN (BEAKER) (test 2.2 g/dL 3.5-5.0 aqyg=1451) ALKALINE PHOSPHATASE 184 U/L 40-150 (BEAKER) (test wpxp=011) BILIRUBIN TOTAL (BEAKER) 0.4 mg/dL 0.2-1.2 (test cdre=455) SODIUM (BEAKER) (test 136 meq/L 136-145 nhio=214) POTASSIUM (BEAKER) (test 3.3 meq/L 3.5-5.1 uhtd=834) CHLORIDE (BEAKER) (test 105 meq/L 98-107 uwlg=840) CO2 (BEAKER) (test 23 meq/L 22-29 phlc=938) BLOOD UREA NITROGEN 14 mg/dL 7-21 (BEAKER) (test kedy=466) CREATININE (BEAKER) (test 1.55 mg/dL 0.57-1.25 qhvh=819) GLUCOSE RANDOM (BEAKER) 145 mg/dL 70-105 (test wxrw=096) CALCIUM (BEAKER) (test 7.2 mg/dL 8.4-10.2 hmzk=708) AST (SGOT) (BEAKER) (test 12 U/L 5-34 sfmn=864) ALT (SGPT) (BEAKER) (test 14 U/L 6-55 gjhf=776) EGFR (BEAKER) (test 33 mL/min/1.73 sq m ESTIMATED GFR IS NOT pofl=5113) ACCURATE CREATININE CLEARANCE IN PREDICTING GLOMERULAR FILTRATION RATE. ESTIMATED GFR IS NOT APPLICABLE FOR DIALYSIS PATIENTS. Specimen slightly [id number] 04:12:00 Test Item Value Reference Range Comments MAGNESIUM (BEAKER) (test ymno=500) 1.4 mg/dL 1.6-2.6 CBC W/PLT COUNT & AUTO [id number] 03:55:00 Test Item Value Reference Range Comments WHITE BLOOD CELL COUNT (BEAKER) (test cmka=829) 7.9 K/ L 3.5-10.5 RED BLOOD CELL COUNT (BEAKER) (test jmkm=452) 2.17 M/ L 3.93-5.22 HEMOGLOBIN (BEAKER) (test zfad=342) 6.3 GM/DL 11.2-15.7 HEMATOCRIT (BEAKER) (test acyf=213) 20.4 % 34.1-44.9 MEAN CORPUSCULAR VOLUME (BEAKER) (test nzjg=518) 94.0 fL 79.4-94.8 MEAN CORPUSCULAR HEMOGLOBIN (BEAKER) (test 29.0 pg 25.6-32.2 lvvi=078) MEAN CORPUSCULAR HEMOGLOBIN CONC (BEAKER) (test 30.9 GM/DL 32.2-35.5 jcmg=095) RED CELL DISTRIBUTION WIDTH (BEAKER) (test 15.6 % 11.7-14.4 hbmn=817) PLATELET COUNT (BEAKER) (test qemw=479) 131 K/CU MM 150-450 MEAN PLATELET VOLUME (BEAKER) (test hiih=065) 11.6 fL 9.4-12.3 NUCLEATED RED BLOOD CELLS (BEAKER) (test 0 /100 WBC 0-0 bwcx=018) NEUTROPHILS RELATIVE PERCENT (BEAKER) (test 82 % jkaw=652) LYMPHOCYTES RELATIVE PERCENT (BEAKER) (test 11 % qlaq=211) MONOCYTES RELATIVE PERCENT (BEAKER) (test 6 % pbdo=586) EOSINOPHILS RELATIVE PERCENT (BEAKER) (test 0 % natz=374) BASOPHILS RELATIVE PERCENT (BEAKER) (test 0 % qrsm=064) NEUTROPHILS ABSOLUTE COUNT (BEAKER) (test 6.49 K/ L 1.56-6.13 vouh=128) LYMPHOCYTES ABSOLUTE COUNT (BEAKER) (test 0.87 K/ L 1.18-3.74 jqpq=037) MONOCYTES ABSOLUTE COUNT (BEAKER) (test 0.46 K/ L 0.24-0.36 lywp=256) EOSINOPHILS ABSOLUTE COUNT (BEAKER) (test 0.02 K/ L 0.04-0.36 ilqk=800) BASOPHILS ABSOLUTE COUNT (BEAKER) (test 0.03 K/ L 0.01-0.08 gmqg=635) IMMATURE GRANULOCYTES-RELATIVE PERCENT (BEAKER) 0 % 0-1 (test aemy=0224) BODY FLUID CELL COUNT WITH [id number] 02:05:00 Test Item Value Reference Range Comments APPEARANCE FLUID (BEAKER) (test rdip=425) Clear Clear COLOR FLUID (BEAKER) (test cvoj=681) Colorless Colorless, Straw RBC FLUID (BEAKER) (test meyo=392) 1000 /cu mm <=1 ADJUSTED WBC FLUID (BEAKER) (test wudb=9016) 102 /cu mm <=5 LINING CELLS (BEAKER) (test mmlr=6788) 31 /cu mm <=1 NEUTROPHILS FLUID (BEAKER) (test bnal=7557) 45 % LYMPHS FLUID (BEAKER) (test cvlm=915) 13 % MONO/MACROPHAGE FLUID (BEAKER) (test oyki=737) 39 % EOSINOPHILS FLUID (BEAKER) (test lixj=646) 3 % BASO FLUID (BEAKER) (test rnfs=210) 0 % CONTAINER BODY FLUID (BEAKER) (test ltcv=1828) EDTA Tube POCT-GLUCOSE [id number] 00:09:00 Test Item Value Reference Range Comments POC-GLUCOSE METER (BEAKER) 152 mg/dL 70-[address] [facility] [address] [facility] (test nafw=3908) [facility] [address] BLOOD GAS, [id number] 20:56:00 Test Item Value Reference Range Comments PH ARTERIAL (BEAKER) (test rpxb=740) 7.49 7.35-7.45 PCO2 ARTERIAL (BEAKER) (test ibvc=172) 39 mmHg 35-45 PO2 ARTERIAL (BEAKER) (test myfs=016) 70 mmHg 80-90 O2 SATURATION ARTERIAL (BEAKER) (test dvgg=755) 94.9 % 96.0-97.0 HCO3 ARTERIAL (BEAKER) (test kdzh=125) 29 mmol/L 21-29 BASE EXCESS ARTERIAL (BEAKER) (test fjqt=408) 5.2 mmol/L -2.0-3.0 PATIENT TEMPERATURE (BEAKER) (test aaop=7125) 37.5 C FIO2 (BEAKER) (test tcci=7937) 70.0 % POCT-GLUCOSE [id number] 18:37:00 Test Item Value Reference Range Comments POC-GLUCOSE METER (BEAKER) 128 mg/dL 70-110 TESTED AT [address] (test wucq=9069) [place] [id number] POCT-GLUCOSE [id number] 16:09:00 Test Item Value Reference Range Comments POC-GLUCOSE METER (BEAKER) 121 mg/dL 70-110 TESTED AT [address] (test erio=9300) [place] [id number] POCT-GLUCOSE [id number] 12:21:00 Test Item Value Reference Range Comments POC-GLUCOSE METER (BEAKER) 200 mg/dL 70-110 TESTED AT [address] (test qxes=6138) [facility] [address] RAD, CHEST, 1 VIEW, NON [id number] 12:06:00Reason for exam:->acute hypoxic respiratory failureShould this [...] Moyer Verified Date/Time: 05/16/2018 12:06:49 Reading Location: [facility] Radiology Reading Room POCT-GLUCOSE [id number] 10:45:00 Test Item Value Reference Range Comments POC-GLUCOSE METER (BEAKER) 230 mg/dL 70-110 TESTED AT [address] (test ldgn=1041) [facility] [address] BLOOD GAS, [id number] 10:32:00 Test Item Value Reference Range Comments PH ARTERIAL (BEAKER) (test fryu=451) 7.44 7.35-7.45 PCO2 ARTERIAL (BEAKER) (test kpsr=409) 41 mmHg 35-45 PO2 ARTERIAL (BEAKER) (test niba=985) 48 mmHg 80-90 O2 SATURATION ARTERIAL (BEAKER) (test avxp=733) 85.0 % 96.0-97.0 HCO3 ARTERIAL (BEAKER) (test ufcg=433) 27 mmol/L 21-29 BASE EXCESS ARTERIAL (BEAKER) (test dgjd=465) 2.2 mmol/L -2.0-3.0 PATIENT TEMPERATURE (BEAKER) (test ebfc=2722) 37.0 C FIO2 (BEAKER) (test aazx=1839) 100.0 % POCT-GLUCOSE [id number] 09:00:00 Test Item Value Reference Range Comments POC-GLUCOSE METER (BEAKER) 195 mg/dL 70-[address] [facility] [address] [facility] (test ogui=9095) [facility] [address] COMPREHENSIVE METABOLIC [id number] 04:53:00 Test Item Value Reference Range Comments TOTAL PROTEIN (BEAKER) 6.1 gm/dL 6.0-8.3 (test hpoj=745) ALBUMIN (BEAKER) (test 2.7 g/dL 3.5-5.0 ebky=4263) ALKALINE PHOSPHATASE 249 U/L 40-150 (BEAKER) (test qnna=195) BILIRUBIN TOTAL (BEAKER) 0.4 mg/dL 0.2-1.2 (test uzik=606) SODIUM (BEAKER) (test 133 meq/L 136-145 cylj=390) POTASSIUM (BEAKER) (test 4.0 meq/L 3.5-5.1 nnnc=179) CHLORIDE (BEAKER) (test 98 meq/L 98-107 xfyn=439) CO2 (BEAKER) (test 26 meq/L 22-29 xnax=363) BLOOD UREA NITROGEN 29 mg/dL 7-21 (BEAKER) (test fasy=285) CREATININE (BEAKER) (test 2.62 mg/dL 0.57-1.25 qbie=421) GLUCOSE RANDOM (BEAKER) 157 mg/dL 70-105 (test mamp=447) CALCIUM (BEAKER) (test 8.5 mg/dL 8.4-10.2 cdrd=171) AST (SGOT) (BEAKER) (test 21 U/L 5-34 fvuh=744) ALT (SGPT) (BEAKER) (test 27 U/L 6-55 hnje=872) EGFR (BEAKER) (test 18 mL/min/1.73 sq m ESTIMATED GFR IS NOT nzrt=9812) ACCURATE CREATININE CLEARANCE IN PREDICTING GLOMERULAR FILTRATION RATE. ESTIMATED GFR IS NOT APPLICABLE FOR DIALYSIS PATIENTS. [id number] 04:51:00 Test Item Value Reference Range Comments PHOSPHORUS (BEAKER) (test bvxn=536) 4.4 mg/dL 2.3-4.7 [id number] 04:51:00 Test Item Value Reference Range Comments MAGNESIUM (BEAKER) (test fmvr=222) 1.8 mg/dL 1.6-2.6 CALCIUM, [id number] 04:33:00 Test Item Value Reference Range Comments CALCIUM IONIZED (BEAKER) (test iqvl=631) 1.13 mmol/L 1.12-1.27 PH, BLOOD (BEAKER) (test gyzc=9381) 7.45 POCT-GLUCOSE [id number] 04:16:00 Test Item Value Reference Range Comments POC-GLUCOSE METER (BEAKER) 185 mg/dL 70-110 TESTED AT [address] (test wqzx=3975) [place] [id number] POCT-GLUCOSE [id number] 21:16:00 Test Item Value Reference Range Comments POC-GLUCOSE METER (BEAKER) 166 mg/dL 70-110 TESTED AT [address] (test dnzl=0829) [place] [id number] POCT-GLUCOSE [id number] 18:06:00 Test Item Value Reference Range Comments POC-GLUCOSE METER (BEAKER) 193 mg/dL 70-110 TESTED AT [address] (test bjug=1015) [place] [id number] PH, BODY [id number] 14:59:00 Test Item Value Reference Range Comments PH, BODY FLUID (BEAKER) (test schs=4713) 7.75 POCT-GLUCOSE [id number] 14:54:00 Test Item Value Reference Range Comments POC-GLUCOSE METER (BEAKER) 226 mg/dL 70-110 TESTED AT [place] [address] [address] (test iqru=9395) [facility] [address] BODY FLUID CELL COUNT WITH [id number] 14:41:00 Test Item Value Reference Range Comments APPEARANCE FLUID (BEAKER) (test tgyx=553) Cloudy Clear COLOR FLUID (BEAKER) (test orbp=618) [place] Colorless, Straw RBC FLUID (BEAKER) (test qprr=333) 3000 /cu mm <=1 ADJUSTED WBC FLUID (BEAKER) (test tnze=1648) 205 /cu mm <=5 LINING CELLS (BEAKER) (test lyip=7752) 2 /cu mm <=1 NEUTROPHILS FLUID (BEAKER) (test hhqn=2379) 17 % LYMPHS FLUID (BEAKER) (test vcrg=171) 52 % MONO/MACROPHAGE FLUID (BEAKER) (test fdjp=572) 31 % EOSINOPHILS FLUID (BEAKER) (test cvsn=968) 0 % BASO FLUID (BEAKER) (test psib=498) 0 % CONTAINER BODY FLUID (BEAKER) (test otly=4189) EDTA Tube LACTATE DEHYDROGENASE (LDH), BODY [id number] 13:26:00 Test Item Value Reference Range Comments LACTATE DEHYDROGENASE FLUID (BEAKER) < U/L Light's criteria identifies (test fcnd=276) effusions if one or more are pre Absence of reference range indicates that normals have not been defined.Assay performance has not been validated for this type of specimen.PROTEIN, BODY [id number] 13:26:00 Test Item Value Reference Range Comments PROTEIN FLUID (BEAKER) (test 2.3 g/dL Light's criteria identifies wdba=171) effusions if one or more are pre Absence of reference range indicates that normals have not been defined.Assay performance has not been validated for this type of specimen.RAD, CHEST, 1 VIEW , NON [id number] 13:09:00Reason for exam:->post right thoracentesis Should this [...] MDReport Verified Date/Time: 05/15/2018 13:09:02 Reading Location: [facility] Radiology Reading Room RAD, CHEST, 1 VIEW, NON [id number] 11:51:00Reason for exam:->increased work of breathing/hypoxiaShould [...] [place] Verified Date/Time: 05/15/2018 11:51:05 Reading Location: [facility] Radiology Reading Room Electronically signed by: DICK DALLAS M.D. on 2018 11:51 AMPOCT-LACTIC ACID, [id number] 11:19:00 Test Item Value Reference Range Comments POC-LACTIC ACID, ARTERIAL 0.9 mmol/L 0.4-1.3 [address]ED [address] ([facility]) (test akzl=9568) [facility] [address] POCT-BLOOD GASES, [id number] 11:19:00 Test Item Value Reference Range Comments TEMP, CELSIUS-POC (BEAKER) 37.0 (test ppjk=6303) FIO2-POC (BEAKER) (test TESTED AT [address] jire=8415) [place] [id number] PH, ARTERIAL-POC (BEAKER) 7.377 7.350-7.450 (test abnl=1261) PCO2, ARTERIAL-POC (BEAKER) 47.3 mm Hg 35.0-45.0 (test ojib=5253) PO2, ARTERIAL-POC (BEAKER) 62.0 mm Hg 80.0-90.0 (test foce=0071) SO2, ARTERIAL-POC (BEAKER) 90.0 % 96.0-97.0 (test xwpu=8286) HCO3, ARTERIAL-POC (BEAKER) 27.8 meq/L 21.0-29.0 (test ftqn=0234) BASE EXCESS, ARTERIAL-POC 3.0 meq/L -2.0-3.0 (BEAKER) (test mdlb=6073) [id number] 11:19:00 Test Item Value Reference Range Comments POC-SODIUM (BEAKER) (test 133 meq/L 135-148 TESTED AT [address] tujg=7960) [place] [address] [id number] 11:19:00 Test Item Value Reference Range Comments POC-POTASSIUM (BEAKER) (test 4.0 meq/L 3.6-5.5 TESTED AT [address] qvca=0266) [place] [address] [id number] 11:19:00 Test Item Value Reference Range Comments POC-GLUCOSE (BEAKER) (test 213 mg/dL 70-110 TESTED AT [address] drlh=3022) [place] [address] POCT-CALCIUM [id number] 11:19:00 Test Item Value Reference Range Comments POC-CALCIUM IONIZED (BEAKER) 1.14 mmol/L 1.12-1.27 TESTED AT [address] (test yukm=3483) [place] [address] [id number] 11:19:00 Test Item Value Reference Range Comments POC-HEMATOCRIT (BEAKER) (test 26 % 36-45 TESTED AT [address] solf=0458) [place] [address] [id number] 11:19:00 Test Item Value Reference Range Comments POC-HEMOGLOBIN (BEAKER) 8.8 g/dL 12.0-15.0 TESTED AT [address] (test zgqe=9208) [place] [address]TESTED AT [place] [address] POCT-GLUCOSE [id number] 07:33:00 Test Item Value Reference Range Comments POC-GLUCOSE METER (BEAKER) 125 mg/dL 70-110 TESTED AT [address] (test tykn=4597) [facility] [address] POCT-GLUCOSE [id number] 05:43:00 Test Item Value Reference Range Comments POC-GLUCOSE METER (BEAKER) 89 mg/dL 70-110 TESTED AT [address] (test jvqd=1979) [facility] [address] POCT-GLUCOSE [id number] 04:37:00 Test Item Value Reference Range Comments POC-GLUCOSE METER (BEAKER) 41 mg/dL 70-110 TESTED AT [address] (test evef=8381) [facility] [address] COMPREHENSIVE METABOLIC [id number] 04:28:00 Test Item Value Reference Range Comments TOTAL PROTEIN (BEAKER) 6.3 gm/dL 6.0-8.3 (test qjsn=298) ALBUMIN (BEAKER) (test 2.9 g/dL 3.5-5.0 jroi=5391) ALKALINE PHOSPHATASE 239 U/L 40-150 (BEAKER) (test ucqr=783) BILIRUBIN TOTAL (BEAKER) 0.3 mg/dL 0.2-1.2 (test hrbb=871) SODIUM (BEAKER) (test 135 meq/L 136-145 mgyq=606) POTASSIUM (BEAKER) (test 3.9 meq/L 3.5-5.1 yuni=649) CHLORIDE (BEAKER) (test 100 meq/L 98-107 atqn=311) CO2 (BEAKER) (test 26 meq/L 22-29 gxhv=114) BLOOD UREA NITROGEN 21 mg/dL 7-21 (BEAKER) (test aiuz=388) CREATININE (BEAKER) (test 2.02 mg/dL 0.57-1.25 jneo=707) GLUCOSE RANDOM (BEAKER) 40 mg/dL 70-105 (test vxcw=097) CALCIUM (BEAKER) (test 8.5 mg/dL 8.4-10.2 rsdo=148) AST (SGOT) (BEAKER) (test 23 U/L 5-34 musu=233) ALT (SGPT) (BEAKER) (test 26 U/L 6-55 mbuv=496) EGFR (BEAKER) (test 25 mL/min/1.73 sq m ESTIMATED GFR IS NOT qxsv=9793) ACCURATE CREATININE CLEARANCE IN PREDICTING GLOMERULAR FILTRATION RATE. ESTIMATED GFR IS NOT APPLICABLE FOR DIALYSIS PATIENTS. [id number] 04:20:00 Test Item Value Reference Range Comments MAGNESIUM (BEAKER) (test mimu=025) 1.9 mg/dL 1.6-2.6 CBC W/PLT COUNT & AUTO [id number] 04:04:00 Test Item Value Reference Range Comments WHITE BLOOD CELL COUNT (BEAKER) (test xqbb=870) 7.6 K/ L 3.5-10.5 RED BLOOD CELL COUNT (BEAKER) (test gngx=735) 2.46 M/ L 3.93-5.22 HEMOGLOBIN (BEAKER) (test wpmz=519) 7.2 GM/DL 11.2-15.7 HEMATOCRIT (BEAKER) (test iaaj=061) 23.4 % 34.1-44.9 MEAN CORPUSCULAR VOLUME (BEAKER) (test chzi=395) 95.1 fL 79.4-94.8 MEAN CORPUSCULAR HEMOGLOBIN (BEAKER) (test 29.3 pg 25.6-32.2 pcpz=031) MEAN CORPUSCULAR HEMOGLOBIN CONC (BEAKER) (test 30.8 GM/DL 32.2-35.5 jkiu=127) RED CELL DISTRIBUTION WIDTH (BEAKER) (test 15.9 % 11.7-14.4 ibnd=509) PLATELET COUNT (BEAKER) (test jhvz=783) 155 K/CU MM 150-450 MEAN PLATELET VOLUME (BEAKER) (test xatl=110) 12.5 fL 9.4-12.3 NUCLEATED RED BLOOD CELLS (BEAKER) (test 0 /100 WBC 0-0 haga=559) NEUTROPHILS RELATIVE PERCENT (BEAKER) (test 77 % hrhy=133) LYMPHOCYTES RELATIVE PERCENT (BEAKER) (test 13 % zdfs=921) MONOCYTES RELATIVE PERCENT (BEAKER) (test 8 % gpjg=848) EOSINOPHILS RELATIVE PERCENT (BEAKER) (test 1 % qcqq=694) BASOPHILS RELATIVE PERCENT (BEAKER) (test 1 % bcvi=176) NEUTROPHILS ABSOLUTE COUNT (BEAKER) (test 5.81 K/ L 1.56-6.13 vewk=381) LYMPHOCYTES ABSOLUTE COUNT (BEAKER) (test 0.96 K/ L 1.18-3.74 fbse=086) MONOCYTES ABSOLUTE COUNT (BEAKER) (test 0.63 K/ L 0.24-0.36 vnvq=452) EOSINOPHILS ABSOLUTE COUNT (BEAKER) (test 0.11 K/ L 0.04-0.36 pqns=823) BASOPHILS ABSOLUTE COUNT (BEAKER) (test 0.04 K/ L 0.01-0.08 gkei=280) IMMATURE GRANULOCYTES-RELATIVE PERCENT (BEAKER) 1 % 0-1 (test zkfl=0108) POCT-GLUCOSE [id number] 17:58:00 Test Item Value Reference Range Comments POC-GLUCOSE METER (BEAKER) 170 mg/dL 70-110 TESTED AT [address] (test otrw=6136) [facility] [address] POCT-GLUCOSE [id number] 12:31:00 Test Item Value Reference Range Comments POC-GLUCOSE METER (BEAKER) 124 mg/dL 70-110 TESTED AT [address] (test hxvn=1910) [facility] [address] PROTHROMBIN [id number] 10:38:00 Test Item Value Reference Range Comments PROTIME (BEAKER) (test pnxk=959) 14.4 seconds 11.7-14.7 INR (BEAKER) (test bfmw=118) 1.1 <=5.9 RECOMMENDED COUMADIN/WARFARIN INR THERAPY RANGESSTANDARD DOSE: 2.0 - 3.0 Includes: PROPHYLAXIS forvenous thrombosis, systemic embolization; TREATMENT for venous thrombosis and/or pulmonary embolus.HIGH RISK: Target INR is 2.5-3.5 for patients with mechanical heart valves.B-TYPE NATRIURETIC FACTOR (BNP)2018-05 05:28:00 Test Item Value Reference Range Comments B-TYPE NATRIURETIC PEPTIDE (BEAKER) (test 336 pg/mL 0-100 eyod=603) [id number] 05:12:00 Test Item Value Reference Range Comments PHOSPHORUS (BEAKER) (test uwzv=073) 4.9 mg/dL 2.3-4.7 [id number] 05:12:00 Test Item Value Reference Range Comments MAGNESIUM (BEAKER) (test ccsr=508) 1.5 mg/dL 1.6-2.6 COMPREHENSIVE METABOLIC [id number] 05:12:00 Test Item Value Reference Range Comments TOTAL PROTEIN (BEAKER) 6.4 gm/dL 6.0-8.3 (test izhq=345) ALBUMIN (BEAKER) (test 2.8 g/dL 3.5-5.0 jyac=5972) ALKALINE PHOSPHATASE 221 U/L 40-150 (BEAKER) (test fijt=018) BILIRUBIN TOTAL (BEAKER) 0.3 mg/dL 0.2-1.2 (test ciss=197) SODIUM (BEAKER) (test 130 meq/L 136-145 hkzw=016) POTASSIUM (BEAKER) (test 4.3 meq/L 3.5-5.1 mkvn=149) CHLORIDE (BEAKER) (test 96 meq/L 98-107 hdys=963) CO2 (BEAKER) (test 25 meq/L 22-29 pcln=400) BLOOD UREA NITROGEN 35 mg/dL 7-21 (BEAKER) (test iuen=448) CREATININE (BEAKER) (test 3.26 mg/dL 0.57-1.25 drnq=077) GLUCOSE RANDOM (BEAKER) 99 mg/dL 70-105 (test qqrw=350) CALCIUM (BEAKER) (test 7.6 mg/dL 8.4-10.2 plcg=952) AST (SGOT) (BEAKER) (test 20 U/L 5-34 qxbu=837) ALT (SGPT) (BEAKER) (test 22 U/L 6-55 rrvw=776) EGFR (BEAKER) (test 14 mL/min/1.73 sq m ESTIMATED GFR IS NOT isxt=5359) ACCURATE CREATININE CLEARANCE IN PREDICTING GLOMERULAR FILTRATION RATE. ESTIMATED GFR IS NOT APPLICABLE FOR DIALYSIS PATIENTS. CBC W/PLT COUNT & AUTO [id number] 04:57:00 Test Item Value Reference Range Comments WHITE BLOOD CELL COUNT (BEAKER) (test vxlz=474) 9.5 K/ L 3.5-10.5 RED BLOOD CELL COUNT (BEAKER) (test verh=006) 2.63 M/ L 3.93-5.22 HEMOGLOBIN (BEAKER) (test nwco=081) 7.5 GM/DL 11.2-15.7 HEMATOCRIT (BEAKER) (test oxcp=611) 24.9 % 34.1-44.9 MEAN CORPUSCULAR VOLUME (BEAKER) (test qeyf=431) 94.7 fL 79.4-94.8 MEAN CORPUSCULAR HEMOGLOBIN (BEAKER) (test 28.5 pg 25.6-32.2 mvlm=050) MEAN CORPUSCULAR HEMOGLOBIN CONC (BEAKER) (test 30.1 GM/DL 32.2-35.5 plfj=653) RED CELL DISTRIBUTION WIDTH (BEAKER) (test 15.9 % 11.7-14.4 shxm=644) PLATELET COUNT (BEAKER) (test kzrt=522) 164 K/CU MM 150-450 MEAN PLATELET VOLUME (BEAKER) (test kdfy=887) 12.5 fL 9.4-12.3 NUCLEATED RED BLOOD CELLS (BEAKER) (test 0 /100 WBC 0-0 gwtf=017) NEUTROPHILS RELATIVE PERCENT (BEAKER) (test 76 % vopf=266) LYMPHOCYTES RELATIVE PERCENT (BEAKER) (test 11 % tmuq=042) MONOCYTES RELATIVE PERCENT (BEAKER) (test 8 % rilv=166) EOSINOPHILS RELATIVE PERCENT (BEAKER) (test 4 % cabv=039) BASOPHILS RELATIVE PERCENT (BEAKER) (test 1 % oeqx=717) NEUTROPHILS ABSOLUTE COUNT (BEAKER) (test 7.28 K/ L 1.56-6.13 hpfp=818) LYMPHOCYTES ABSOLUTE COUNT (BEAKER) (test 1.07 K/ L 1.18-3.74 bqis=171) MONOCYTES ABSOLUTE COUNT (BEAKER) (test 0.74 K/ L 0.24-0.36 ldcr=425) EOSINOPHILS ABSOLUTE COUNT (BEAKER) (test 0.35 K/ L 0.04-0.36 yzne=475) BASOPHILS ABSOLUTE COUNT (BEAKER) (test 0.05 K/ L 0.01-0.08 ixej=514) IMMATURE GRANULOCYTES-RELATIVE PERCENT (BEAKER) 1 % 0-1 (test mxsm=5374) POCT-GLUCOSE [id number] 21:56:00 Test Item Value Reference Range Comments POC-GLUCOSE METER (BEAKER) 109 mg/dL 70-110 TESTED AT [place] [id number] [facility] (test ibwz=9064) [place] [id number] POCT-GLUCOSE [id number] 17:52:00 Test Item Value Reference Range Comments POC-GLUCOSE METER (BEAKER) 122 mg/dL 70-110 TESTED AT [place] [id number] [facility] (test yghy=0838) [facility] [address] RAD, CHEST, 1 VIEW, NON [id number] 15:32:00Reason for exam:-> hypoxiaShould this be performed [...] MDReport Verified Date/Time: 05/13/2018 15:32:33 Reading Location: [address] Transitional Reading Room POCT-GLUCOSE [id number] 11:50:00 Test Item Value Reference Range Comments POC-GLUCOSE METER (BEAKER) 189 mg/dL 70-110 TESTED AT [address] (test dsxg=8840) [facility] [address] POCT-GLUCOSE [id number] 08:03:00 Test Item Value Reference Range Comments POC-GLUCOSE METER (BEAKER) 226 mg/dL 70-110 TESTED AT [address] (test uozh=7295) [facility] [address] [id number] 04:23:00 Test Item Value Reference Range Comments PHOSPHORUS (BEAKER) (test ltkq=120) 3.8 mg/dL 2.3-4.7 [id number] 04:23:00 Test Item Value Reference Range Comments MAGNESIUM (BEAKER) (test ufsc=939) 1.7 mg/dL 1.6-2.6 COMPREHENSIVE METABOLIC [id number] 04:23:00 Test Item Value Reference Range Comments TOTAL PROTEIN (BEAKER) 6.0 gm/dL 6.0-8.3 (test pgsi=269) ALBUMIN (BEAKER) (test 2.7 g/dL 3.5-5.0 ioxh=0442) ALKALINE PHOSPHATASE 213 U/L 40-150 (BEAKER) (test mepl=463) BILIRUBIN TOTAL (BEAKER) 0.3 mg/dL 0.2-1.2 (test iflc=647) SODIUM (BEAKER) (test 134 meq/L 136-145 ijfg=963) POTASSIUM (BEAKER) (test 4.1 meq/L 3.5-5.1 thdv=668) CHLORIDE (BEAKER) (test 99 meq/L 98-107 otln=167) CO2 (BEAKER) (test 26 meq/L 22-29 eagh=509) BLOOD UREA NITROGEN 27 mg/dL 7-21 (BEAKER) (test llsa=179) CREATININE (BEAKER) (test 2.71 mg/dL 0.57-1.25 ckga=443) GLUCOSE RANDOM (BEAKER) 129 mg/dL 70-105 (test eqke=000) CALCIUM (BEAKER) (test 8.2 mg/dL 8.4-10.2 dtdl=055) AST (SGOT) (BEAKER) (test 23 U/L 5-34 selv=699) ALT (SGPT) (BEAKER) (test 27 U/L 6-55 iqpr=507) EGFR (BEAKER) (test 18 mL/min/1.73 sq m ESTIMATED GFR IS NOT foup=6859) ACCURATE CREATININE CLEARANCE IN PREDICTING GLOMERULAR FILTRATION RATE. ESTIMATED GFR IS NOT APPLICABLE FOR DIALYSIS PATIENTS. CBC W/PLT COUNT & AUTO [id number] 04:17:00 Test Item Value Reference Range Comments WHITE BLOOD CELL COUNT (BEAKER) (test eeks=058) 8.4 K/ L 3.5-10.5 RED BLOOD CELL COUNT (BEAKER) (test vefr=204) 2.47 M/ L 3.93-5.22 HEMOGLOBIN (BEAKER) (test nqgm=409) 7.2 GM/DL 11.2-15.7 HEMATOCRIT (BEAKER) (test motv=327) 23.5 % 34.1-44.9 MEAN CORPUSCULAR VOLUME (BEAKER) (test wpua=203) 95.1 fL 79.4-94.8 MEAN CORPUSCULAR HEMOGLOBIN (BEAKER) (test 29.1 pg 25.6-32.2 qllm=264) MEAN CORPUSCULAR HEMOGLOBIN CONC (BEAKER) (test 30.6 GM/DL 32.2-35.5 ajqs=915) RED CELL DISTRIBUTION WIDTH (BEAKER) (test 16.0 % 11.7-14.4 bbmu=955) PLATELET COUNT (BEAKER) (test xbmd=353) 144 K/CU MM 150-450 MEAN PLATELET VOLUME (BEAKER) (test xvbi=731) 12.6 fL 9.4-12.3 NUCLEATED RED BLOOD CELLS (BEAKER) (test 0 /100 WBC 0-0 gqyw=493) NEUTROPHILS RELATIVE PERCENT (BEAKER) (test 72 % esuf=970) LYMPHOCYTES RELATIVE PERCENT (BEAKER) (test 13 % vxtk=609) MONOCYTES RELATIVE PERCENT (BEAKER) (test 9 % bafk=409) EOSINOPHILS RELATIVE PERCENT (BEAKER) (test 4 % gqbu=122) BASOPHILS RELATIVE PERCENT (BEAKER) (test 1 % fhgb=431) NEUTROPHILS ABSOLUTE COUNT (BEAKER) (test 6.04 K/ L 1.56-6.13 guzs=301) LYMPHOCYTES ABSOLUTE COUNT (BEAKER) (test 1.08 K/ L 1.18-3.74 xhmx=835) MONOCYTES ABSOLUTE COUNT (BEAKER) (test 0.78 K/ L 0.24-0.36 eekr=847) EOSINOPHILS ABSOLUTE COUNT (BEAKER) (test 0.37 K/ L 0.04-0.36 bqco=476) BASOPHILS ABSOLUTE COUNT (BEAKER) (test 0.04 K/ L 0.01-0.08 foeb=214) IMMATURE GRANULOCYTES-RELATIVE PERCENT (BEAKER) 1 % 0-1 (test tpid=2133) POCT-GLUCOSE [id number] 21:34:00 Test Item Value Reference Range Comments POC-GLUCOSE METER (BEAKER) 173 mg/dL 70-110 TESTED AT [address] (test zluq=6242) [place] [address] BLOOD [id number] 19:00:00 Test Item Value Reference Range Comments CULTURE (BEAKER) (test uvxw=5533) No growth in 5 days BLOOD [id number] 19:00:00 Test Item Value Reference Range Comments CULTURE (BEAKER) (test cxit=8763) No growth in 5 days POCT-GLUCOSE [id number] 17:19:00 Test Item Value Reference Range Comments POC-GLUCOSE METER (BEAKER) 299 mg/dL 70-110 TESTED AT [address] (test niih=2797) [place] [id number] POCT-GLUCOSE [id number] 12:23:00 Test Item Value Reference Range Comments POC-GLUCOSE METER (BEAKER) 141 mg/dL 70-110 TESTED AT [address] (test ssiq=2158) [place] [address] BODY FLUID CULTURE + GRAM [id number] 10:00:00 Test Item Value Reference Range Comments CULTURE (BEAKER) (test qqfy=7357) No growth GRAM STAIN RESULT (BEAKER) (test <1+ WBCs xsdf=5694) GRAM STAIN RESULT (BEAKER) (test No organisms seen twep=09339) POCT-GLUCOSE [id number] 07:56:00 Test Item Value Reference Range Comments POC-GLUCOSE METER (BEAKER) 116 mg/dL 70-[address] [facility] [address] [facility] (test aguw=7121) [facility] [address] [id number] 05:35:00 Test Item Value Reference Range Comments PHOSPHORUS (BEAKER) (test dfmd=815) 2.7 mg/dL 2.3-4.7 [id number] 05:35:00 Test Item Value Reference Range Comments MAGNESIUM (BEAKER) (test sifv=168) 1.6 mg/dL 1.6-2.6 COMPREHENSIVE METABOLIC [id number] 05:35:00 Test Item Value Reference Range Comments TOTAL PROTEIN (BEAKER) 6.0 gm/dL 6.0-8.3 (test wcyn=904) ALBUMIN (BEAKER) (test 2.7 g/dL 3.5-5.0 cmeh=8966) ALKALINE PHOSPHATASE 204 U/L 40-150 (BEAKER) (test lzrd=127) BILIRUBIN TOTAL (BEAKER) 0.2 mg/dL 0.2-1.2 (test myov=235) SODIUM (BEAKER) (test 136 meq/L 136-145 ujez=854) POTASSIUM (BEAKER) (test 3.8 meq/L 3.5-5.1 bccg=442) CHLORIDE (BEAKER) (test 101 meq/L 98-107 xhlc=857) CO2 (BEAKER) (test 29 meq/L 22-29 qfah=152) BLOOD UREA NITROGEN 18 mg/dL 7-21 (BEAKER) (test spbl=699) CREATININE (BEAKER) (test 2.09 mg/dL 0.57-1.25 qtxk=486) GLUCOSE RANDOM (BEAKER) 149 mg/dL 70-105 (test rwef=460) CALCIUM (BEAKER) (test 8.1 mg/dL 8.4-10.2 jbxk=917) AST (SGOT) (BEAKER) (test 19 U/L 5-34 cetd=048) ALT (SGPT) (BEAKER) (test 25 U/L 6-55 wuhi=705) EGFR (BEAKER) (test 24 mL/min/1.73 sq m ESTIMATED GFR IS NOT kokh=1449) ACCURATE CREATININE CLEARANCE IN PREDICTING GLOMERULAR FILTRATION RATE. ESTIMATED GFR IS NOT APPLICABLE FOR DIALYSIS PATIENTS. CBC W/PLT COUNT & AUTO [id number] 05:03:00 Test Item Value Reference Range Comments WHITE BLOOD CELL COUNT (BEAKER) (test ihzg=895) 7.7 K/ L 3.5-10.5 RED BLOOD CELL COUNT (BEAKER) (test xgsk=154) 2.48 M/ L 3.93-5.22 HEMOGLOBIN (BEAKER) (test vfpp=074) 7.2 GM/DL 11.2-15.7 HEMATOCRIT (BEAKER) (test pdmn=212) 23.4 % 34.1-44.9 MEAN CORPUSCULAR VOLUME (BEAKER) (test ffjz=426) 94.4 fL 79.4-94.8 MEAN CORPUSCULAR HEMOGLOBIN (BEAKER) (test 29.0 pg 25.6-32.2 rfgi=565) MEAN CORPUSCULAR HEMOGLOBIN CONC (BEAKER) (test 30.8 GM/DL 32.2-35.5 gsrw=314) RED CELL DISTRIBUTION WIDTH (BEAKER) (test 16.0 % 11.7-14.4 anaq=976) PLATELET COUNT (BEAKER) (test tqmq=564) 133 K/CU MM 150-450 MEAN PLATELET VOLUME (BEAKER) (test exfb=747) 12.8 fL 9.4-12.3 NUCLEATED RED BLOOD CELLS (BEAKER) (test 0 /100 WBC 0-0 ifbi=614) NEUTROPHILS RELATIVE PERCENT (BEAKER) (test 74 % lbbf=678) LYMPHOCYTES RELATIVE PERCENT (BEAKER) (test 12 % uijr=163) MONOCYTES RELATIVE PERCENT (BEAKER) (test 9 % aagn=537) EOSINOPHILS RELATIVE PERCENT (BEAKER) (test 4 % ciih=032) BASOPHILS RELATIVE PERCENT (BEAKER) (test 0 % bxjg=555) NEUTROPHILS ABSOLUTE COUNT (BEAKER) (test 5.75 K/ L 1.56-6.13 etbn=901) LYMPHOCYTES ABSOLUTE COUNT (BEAKER) (test 0.92 K/ L 1.18-3.74 jbbf=769) MONOCYTES ABSOLUTE COUNT (BEAKER) (test 0.69 K/ L 0.24-0.36 oriu=584) EOSINOPHILS ABSOLUTE COUNT (BEAKER) (test 0.29 K/ L 0.04-0.36 jidu=317) BASOPHILS ABSOLUTE COUNT (BEAKER) (test 0.03 K/ L 0.01-0.08 fhtm=950) IMMATURE GRANULOCYTES-RELATIVE PERCENT (BEAKER) 1 % 0-1 (test jshh=6545) POCT-GLUCOSE [id number] 00:49:00 Test Item Value Reference Range Comments POC-GLUCOSE METER (BEAKER) 182 mg/dL 70-110 TESTED AT [address] (test nbtt=5946) [place] [id number] POCT-GLUCOSE [id number] 16:30:00 Test Item Value Reference Range Comments POC-GLUCOSE METER (BEAKER) 104 mg/dL 70-110 TESTED AT [address] (test zimj=4582) [place] [address] RAD, CHEST, 1 VIEW, NON [id number] 15:10:00Reason for exam:->Trialysis line placement Should this [...] Verified Date/ Time: 05/11/2018 15:10:31 Reading Location: [facility] Radiology Reading Room POCT-GLUCOSE [id number] 12:32:00 Test Item Value Reference Range Comments POC-GLUCOSE METER (BEAKER) 111 mg/dL 70-110 TESTED AT [address] (test spjx=8959) [place] [id number] POCT-GLUCOSE [id number] 08:05:00 Test Item Value Reference Range Comments POC-GLUCOSE METER (BEAKER) 135 mg/dL 70-[address] [facility] [address] (test fljj=7236) [place] [address] [id number] 05:41:00 Test Item Value Reference Range Comments PROTIME (BEAKER) (test orbc=262) 14.4 seconds 11.7-14.7 INR (BEAKER) (test nesb=689) 1.1 <=5.9 PARTIAL THROMBOPLASTIN TIME (BEAKER) (test 37.5 seconds 22.5-36.0 xhjc=835) RECOMMENDED COUMADIN/WARFARIN INR THERAPY RANGESSTANDARD DOSE: 2.0 - 3.0 Includes: PROPHYLAXIS forvenous thrombosis, systemic embolization; TREATMENT for venous thrombosis and/or pulmonary embolus.HIGH RISK: Target INR is 2.5-3.5 for patients with mechanical heart valves.COMPREHENSIVE METABOLIC [id number] 05:30:00 Test Item Value Reference Range Comments TOTAL PROTEIN (BEAKER) 6.4 gm/dL 6.0-8.3 (test opmp=315) ALBUMIN (BEAKER) (test 2.9 g/dL 3.5-5.0 ybfz=1341) ALKALINE PHOSPHATASE 224 U/L 40-150 (BEAKER) (test ncmz=017) BILIRUBIN TOTAL (BEAKER) 0.3 mg/dL 0.2-1.2 (test edps=799) SODIUM (BEAKER) (test 134 meq/L 136-145 bukr=010) POTASSIUM (BEAKER) (test 3.9 meq/L 3.5-5.1 hhxn=051) CHLORIDE (BEAKER) (test 101 meq/L 98-107 bgwc=823) CO2 (BEAKER) (test 26 meq/L 22-29 ilxd=273) BLOOD UREA NITROGEN 30 mg/dL 7-21 (BEAKER) (test dell=605) CREATININE (BEAKER) (test 3.21 mg/dL 0.57-1.25 nmwh=016) GLUCOSE RANDOM (BEAKER) 113 mg/dL 70-105 (test zszz=717) CALCIUM (BEAKER) (test 8.2 mg/dL 8.4-10.2 saqm=778) AST (SGOT) (BEAKER) (test 19 U/L 5-34 rxtm=825) ALT (SGPT) (BEAKER) (test 25 U/L 6-55 ggzq=524) EGFR (BEAKER) (test 14 mL/min/1.73 sq m ESTIMATED GFR IS NOT rsca=4520) ACCURATE CREATININE CLEARANCE IN PREDICTING GLOMERULAR FILTRATION RATE. ESTIMATED GFR IS NOT APPLICABLE FOR DIALYSIS PATIENTS. [id number] 05:26:00 Test Item Value Reference Range Comments PHOSPHORUS (BEAKER) (test ugas=807) 3.7 mg/dL 2.3-4.7 [id number] 05:26:00 Test Item Value Reference Range Comments MAGNESIUM (BEAKER) (test quzp=919) 1.8 mg/dL 1.6-2.6 CBC W/PLT COUNT & AUTO [id number] 05:22:00 Test Item Value Reference Range Comments WHITE BLOOD CELL COUNT (BEAKER) (test wquy=765) 10.4 K/ L 3.5-10.5 RED BLOOD CELL COUNT (BEAKER) (test jilt=892) 2.74 M/ L 3.93-5.22 HEMOGLOBIN (BEAKER) (test byyq=790) 7.9 GM/DL 11.2-15.7 HEMATOCRIT (BEAKER) (test jsoc=308) 25.5 % 34.1-44.9 MEAN CORPUSCULAR VOLUME (BEAKER) (test fweb=021) 93.1 fL 79.4-94.8 MEAN CORPUSCULAR HEMOGLOBIN (BEAKER) (test 28.8 pg 25.6-32.2 qxtf=064) MEAN CORPUSCULAR HEMOGLOBIN CONC (BEAKER) (test 31.0 GM/DL 32.2-35.5 mzdr=238) RED CELL DISTRIBUTION WIDTH (BEAKER) (test 16.3 % 11.7-14.4 hdnz=062) PLATELET COUNT (BEAKER) (test whnu=630) 155 K/CU MM 150-450 MEAN PLATELET VOLUME (BEAKER) (test svjy=930) 12.2 fL 9.4-12.3 NUCLEATED RED BLOOD CELLS (BEAKER) (test 0 /100 WBC 0-0 jlsx=820) NEUTROPHILS RELATIVE PERCENT (BEAKER) (test 76 % ukfi=897) LYMPHOCYTES RELATIVE PERCENT (BEAKER) (test 11 % nvee=531) MONOCYTES RELATIVE PERCENT (BEAKER) (test 9 % ocgp=500) EOSINOPHILS RELATIVE PERCENT (BEAKER) (test 4 % xymp=015) BASOPHILS RELATIVE PERCENT (BEAKER) (test 0 % fxik=775) NEUTROPHILS ABSOLUTE COUNT (BEAKER) (test 7.95 K/ L 1.56-6.13 konj=429) LYMPHOCYTES ABSOLUTE COUNT (BEAKER) (test 1.10 K/ L 1.18-3.74 bshv=909) MONOCYTES ABSOLUTE COUNT (BEAKER) (test 0.89 K/ L 0.24-0.36 gocu=206) EOSINOPHILS ABSOLUTE COUNT (BEAKER) (test 0.36 K/ L 0.04-0.36 vpxz=563) BASOPHILS ABSOLUTE COUNT (BEAKER) (test 0.03 K/ L 0.01-0.08 syel=344) IMMATURE GRANULOCYTES-RELATIVE PERCENT (BEAKER) 1 % 0-1 (test efvr=9339) POCT-GLUCOSE [id number] 03:05:00 Test Item Value Reference Range Comments POC-GLUCOSE METER (BEAKER) 192 mg/dL 70-110 TESTED AT [address] (test bzba=5913) [place] [address] POCT-GLUCOSE [id number] 03:05:00 Test Item Value Reference Range Comments POC-GLUCOSE METER (BEAKER) 165 mg/dL 70-110 TESTED AT [address] (test ewln=1727) [place] [address] [address], CHEST, WITHOUT [id number] 18:13:00FINAL REPORT INDICATION: Shortness of breath and [...] Verified Date/Time: 05/10/2018 18: 13:02 Reading Location: [facility] B1 C013Y CT Body Reading Room POCT-GLUCOSE [id number] 16:48:00 Test Item Value Reference Range Comments POC-GLUCOSE METER (BEAKER) 157 mg/dL 70-[address] [facility] [address] [facility] (test eerh=0436) [facility] [address] CT, BRAIN, WITHOUT [id number] 15:32:00FINAL REPORT CT head without contrast 05/10/2018 [...] Brennan Verified Date/Time: 05/10/2018 15:32:37 Reading Location: [facility] Radiology Reading Room WOUND CULTURE + GRAM [id number] 13:40:00 Test Item Value Reference Range Comments CULTURE (BEAKER) (test METHICILLIN RESISTANT 1+ Methicillin rukf=8487) STAPHYLOCOCCUS AUREUS resistant Staphylococcus aureus Clindamycin (test code=10) Erythromycin (test code=4) Linezolid (test code=40) Nitrofurantoin (test code=23) Oxacillin (test code=14) Rifampin (test code=43) Tetracycline (test code=2) Trimethoprim + Sulfamethoxazole (test code=47) Vancomycin (test code=13) GRAM STAIN RESULT <1+ WBCs (BEAKER) (test zxpx=9316) GRAM STAIN RESULT <1+ gram variable (BEAKER) (test coccobacilli uoji=020206) 3+ Skin floraC-REACTIVE [id number] 12:36:00 Test Item Value Reference Range Comments C-REACTIVE PROTEIN (BEAKER) (test utye=114) 2.43 mg/dL 0.00-0.50 BLOOD GAS, [id number] 12:09:00 Test Item Value Reference Range Comments PH ARTERIAL (BEAKER) (test xkrh=038) 7.47 7.35-7.45 PCO2 ARTERIAL (BEAKER) (test hotj=422) 39 mmHg 35-45 PO2 ARTERIAL (BEAKER) (test jwqm=635) 87 mmHg 80-90 O2 SATURATION ARTERIAL (BEAKER) (test khxw=822) 97.2 % 96.0-97.0 HCO3 ARTERIAL (BEAKER) (test crzd=852) 27 mmol/L 21-29 BASE EXCESS ARTERIAL (BEAKER) (test poth=536) 3.5 mmol/L -2.0-3.0 PATIENT TEMPERATURE (BEAKER) (test vibj=2899) 36.9 C FIO2 (BEAKER) (test slbx=6944) 60.0 % POCT-GLUCOSE [id number] 10:31:00 Test Item Value Reference Range Comments POC-GLUCOSE METER (BEAKER) 141 mg/dL 70-110 TESTED AT [address] (test csns=3570) [facility] [address] RAD, CHEST, 1 VIEW, NON [id number] 09:55:00Reason for exam:-> hypoxicShould this be performed [...] MDReport Verified Date/Time: 05/10/2018 09:55:25 Reading Location: [facility] Radiology Reading Room POCT-GLUCOSE [id number] 06:38:00 Test Item Value Reference Range Comments POC-GLUCOSE METER (BEAKER) 143 mg/dL 70-[address] [facility] [address] [facility] (test uocr=3033) [facility] [address] POCT-GLUCOSE [id number] 05:39:00 Test Item Value Reference Range Comments POC-GLUCOSE METER (BEAKER) 132 mg/dL 70-110 TESTED AT [address] (test vcnb=9036) [place] [facility] [id number] COMPREHENSIVE METABOLIC [id number] 05:02:00 Test Item Value Reference Range Comments TOTAL PROTEIN (BEAKER) 6.2 gm/dL 6.0-8.3 (test ditp=623) ALBUMIN (BEAKER) (test 2.8 g/dL 3.5-5.0 iekq=1978) ALKALINE PHOSPHATASE 213 U/L 40-150 (BEAKER) (test lknt=166) BILIRUBIN TOTAL (BEAKER) 0.4 mg/dL 0.2-1.2 (test khte=149) SODIUM (BEAKER) (test 137 meq/L 136-145 kibi=975) POTASSIUM (BEAKER) (test 3.6 meq/L 3.5-5.1 kmmb=187) CHLORIDE (BEAKER) (test 102 meq/L 98-107 nwja=931) CO2 (BEAKER) (test 27 meq/L 22-29 oewd=035) BLOOD UREA NITROGEN 19 mg/dL 7-21 (BEAKER) (test ewxg=135) CREATININE (BEAKER) (test 2.05 mg/dL 0.57-1.25 jxqt=872) GLUCOSE RANDOM (BEAKER) 116 mg/dL 70-105 (test otwv=972) CALCIUM (BEAKER) (test 8.2 mg/dL 8.4-10.2 fvdm=072) AST (SGOT) (BEAKER) (test 22 U/L 5-34 maba=494) ALT (SGPT) (BEAKER) (test 27 U/L 6-55 tzry=651) EGFR (BEAKER) (test 24 mL/min/1.73 sq m ESTIMATED GFR IS NOT zftc=0795) ACCURATE CREATININE CLEARANCE IN PREDICTING GLOMERULAR FILTRATION RATE. ESTIMATED GFR IS NOT APPLICABLE FOR DIALYSIS PATIENTS. [id number] 05:02:00 Test Item Value Reference Range Comments PROTIME (BEAKER) (test unpz=848) 14.4 seconds 11.7-14.7 INR (BEAKER) (test xngc=710) 1.1 <=5.9 PARTIAL THROMBOPLASTIN TIME (BEAKER) (test 28.1 seconds 22.5-36.0 rowt=808) RECOMMENDED COUMADIN/WARFARIN INR THERAPY RANGESSTANDARD DOSE: 2.0 - 3.0 Includes: PROPHYLAXIS forvenous thrombosis, systemic embolization; TREATMENT for venous thrombosis and/or pulmonary embolus.HIGH RISK: Target INR is 2.5-3.5 for patients with mechanical heart valves.[id number] 04:58:00 Test Item Value Reference Range Comments MAGNESIUM (BEAKER) (test lufj=366) 1.7 mg/dL 1.6-2.6 CBC W/PLT COUNT & AUTO [id number] 04:47:00 Test Item Value Reference Range Comments WHITE BLOOD CELL COUNT (BEAKER) (test yfwg=180) 9.1 K/ L 3.5-10.5 RED BLOOD CELL COUNT (BEAKER) (test wxec=197) 2.71 M/ L 3.93-5.22 HEMOGLOBIN (BEAKER) (test rxtw=703) 7.8 GM/DL 11.2-15.7 HEMATOCRIT (BEAKER) (test ryxq=754) 25.0 % 34.1-44.9 MEAN CORPUSCULAR VOLUME (BEAKER) (test omiw=972) 92.3 fL 79.4-94.8 MEAN CORPUSCULAR HEMOGLOBIN (BEAKER) (test 28.8 pg 25.6-32.2 zfqi=583) MEAN CORPUSCULAR HEMOGLOBIN CONC (BEAKER) (test 31.2 GM/DL 32.2-35.5 yfst=799) RED CELL DISTRIBUTION WIDTH (BEAKER) (test 16.2 % 11.7-14.4 ehwv=780) PLATELET COUNT (BEAKER) (test ydlo=752) 118 K/CU MM 150-450 MEAN PLATELET VOLUME (BEAKER) (test azsr=241) 12.4 fL 9.4-12.3 NUCLEATED RED BLOOD CELLS (BEAKER) (test 0 /100 WBC 0-0 ohwj=442) NEUTROPHILS RELATIVE PERCENT (BEAKER) (test 72 % tlin=697) LYMPHOCYTES RELATIVE PERCENT (BEAKER) (test 13 % yffd=025) MONOCYTES RELATIVE PERCENT (BEAKER) (test 9 % awgk=007) EOSINOPHILS RELATIVE PERCENT (BEAKER) (test 5 % hkhm=128) BASOPHILS RELATIVE PERCENT (BEAKER) (test 0 % pcou=298) NEUTROPHILS ABSOLUTE COUNT (BEAKER) (test 6.49 K/ L 1.56-6.13 dfhx=900) LYMPHOCYTES ABSOLUTE COUNT (BEAKER) (test 1.22 K/ L 1.18-3.74 sytn=921) MONOCYTES ABSOLUTE COUNT (BEAKER) (test 0.79 K/ L 0.24-0.36 sqps=065) EOSINOPHILS ABSOLUTE COUNT (BEAKER) (test 0.43 K/ L 0.04-0.36 hqpn=249) BASOPHILS ABSOLUTE COUNT (BEAKER) (test 0.03 K/ L 0.01-0.08 hbbb=883) IMMATURE GRANULOCYTES-RELATIVE PERCENT (BEAKER) 1 % 0-1 (test xfjl=0113) POCT-GLUCOSE [id number] 00:13:00 Test Item Value Reference Range Comments POC-GLUCOSE METER (BEAKER) 160 mg/dL 70-[address] [facility] [address] [facility] (test zyus=0265) [facility] [address] BODY FLUID CELL COUNT WITH [id number] 21:03:00 Test Item Value Reference Range Comments APPEARANCE FLUID (BEAKER) (test hhkb=775) Slightly Hazy Clear COLOR FLUID (BEAKER) (test ggmj=136) Straw Colorless, Straw RBC FLUID (BEAKER) (test wvpr=775) 224 /cu mm <=1 ADJUSTED WBC FLUID (BEAKER) (test arzh=9100) 6 /cu mm <=5 LINING CELLS (BEAKER) (test whvd=6222) 0 /cu mm <=1 NEUTROPHILS FLUID (BEAKER) (test sscy=9532) 17 % LYMPHS FLUID (BEAKER) (test fsbs=567) 83 % MONO/MACROPHAGE FLUID (BEAKER) (test 0 % rmge=997) EOSINOPHILS FLUID (BEAKER) (test rtpw=069) 0 % BASO FLUID (BEAKER) (test fjyx=604) 0 % CONTAINER BODY FLUID (BEAKER) (test EDTA Tube bfdc=3810) LACTATE DEHYDROGENASE (LDH), BODY [id number] 17:59:00 Test Item Value Reference Range Comments LACTATE DEHYDROGENASE FLUID (BEAKER) < U/L Light's criteria identifies (test gfew=212) effusions if one or more are pre Absence of reference range indicates that normals have not been defined.Assay performance has not been validated for this type of specimen.PROTEIN, BODY [id number] 17:59:00 Test Item Value Reference Range Comments PROTEIN FLUID (BEAKER) (test 2.0 g/dL Light's criteria identifies zjrf=348) effusions if one or more are pre Absence of reference range indicates that normals have not been defined.Assay performance has not been validated for this type of specimen.GLUCOSE, BODY [id number] 17:59:00 Test Item Value Reference Range Comments GLUCOSE, BODY FLUID (BEAKER) (test hgoy=2093) 131 mg/dL 70-110 Absence of reference range indicates that normals have not been defined.Assay performance has not been validated for this type of specimen.POCT-GLUCOSE [id number] 17:57:00 Test Item Value Reference Range Comments POC-GLUCOSE METER (BEAKER) 143 mg/dL 70-110 TESTED AT [place] [id number] [facility] (test vqbk=9312) [facility] [address] PROTEIN, [id number] 17:53:00 Test Item Value Reference Range Comments TOTAL PROTEIN (BEAKER) (test fylt=290) 6.1 gm/dL 6.0-8.3 [id number] 17:53:00 Test Item Value Reference Range Comments GLUCOSE RANDOM (BEAKER) (test nobl=276) 144 mg/dL 70-105 LACTATE DEHYDROGENASE (LDH)2018-05-09 17:53:00 Test Item Value Reference Range Comments LACTATE DEHYDROGENASE (BEAKER) (test ktoh=201) 244 U/L 125-220 PH, BODY [id number] 17:48:00 Test Item Value Reference Range Comments PH, BODY FLUID (BEAKER) (test bbyi=3830) 7.84 RAD, CHEST, 1 VIEW, NON [id number] 17:13:00Reason for exam:->follow up Right thoracentesis Should [...] [place] Verified Date/Time: 05/09/2018 17:13:12 Reading Location: [facility] [id number] Consult Reading Room POCT- GLUCOSE [id number] 12:26:00 Test Item Value Reference Range Comments POC-GLUCOSE METER (BEAKER) 141 mg/dL 70-110 TESTED AT [address] (test xufc=9502) [facility] [address] [id number] 10:26:00 Test Item Value Reference Range Comments PROCALCITONIN (BEAKER) (test ieai=0420) 0.12 ng/mL <0.05 SEPSIS RISK (ng/mL)Low: 0.05-0.50Intermediate: 0.51-2.00High: & gt;=2.01BLOOD GAS, [id number] 09:14:00 Test Item Value Reference Range Comments PH ARTERIAL (BEAKER) (test weux=752) 7.42 7.35-7.45 PCO2 ARTERIAL (BEAKER) (test rjqv=911) 34 mmHg 35-45 PO2 ARTERIAL (BEAKER) (test kdqu=296) 88 mmHg 80-90 O2 SATURATION ARTERIAL (BEAKER) (test kakq=650) 97.0 % 96.0-97.0 HCO3 ARTERIAL (BEAKER) (test incf=014) 22 mmol/L 21-29 BASE EXCESS ARTERIAL (BEAKER) (test axup=993) -2.7 mmol/L -2.0-3.0 PATIENT TEMPERATURE (BEAKER) (test vbed=3203) 36.7 C FIO2 (BEAKER) (test eycr=4468) 80.0 % B-TYPE NATRIURETIC FACTOR (BNP)2018-05-09 09:08:00 Test Item Value Reference Range Comments B-TYPE NATRIURETIC PEPTIDE (BEAKER) (test 919 pg/mL 0-100 ywlb=630) CBC W/PLT COUNT & AUTO [id number] 08:47:00 Test Item Value Reference Range Comments WHITE BLOOD CELL COUNT (BEAKER) (test ipsv=038) 9.9 K/ L 3.5-10.5 RED BLOOD CELL COUNT (BEAKER) (test yjnc=943) 2.58 M/ L 3.93-5.22 HEMOGLOBIN (BEAKER) (test vkei=613) 7.5 GM/DL 11.2-15.7 HEMATOCRIT (BEAKER) (test hmvp=370) 24.2 % 34.1-44.9 MEAN CORPUSCULAR VOLUME (BEAKER) (test dkjf=717) 93.8 fL 79.4-94.8 MEAN CORPUSCULAR HEMOGLOBIN (BEAKER) (test 29.1 pg 25.6-32.2 nvtz=527) MEAN CORPUSCULAR HEMOGLOBIN CONC (BEAKER) (test 31.0 GM/DL 32.2-35.5 maeq=381) RED CELL DISTRIBUTION WIDTH (BEAKER) (test 16.4 % 11.7-14.4 kwrw=073) PLATELET COUNT (BEAKER) (test czwp=697) 130 K/CU MM 150-450 MEAN PLATELET VOLUME (BEAKER) (test zqgo=493) 12.2 fL 9.4-12.3 NUCLEATED RED BLOOD CELLS (BEAKER) (test 0 /100 WBC 0-0 pgkw=208) NEUTROPHILS RELATIVE PERCENT (BEAKER) (test 72 % klzn=338) LYMPHOCYTES RELATIVE PERCENT (BEAKER) (test 13 % qefp=968) MONOCYTES RELATIVE PERCENT (BEAKER) (test 9 % mhsx=731) EOSINOPHILS RELATIVE PERCENT (BEAKER) (test 4 % wkbz=949) BASOPHILS RELATIVE PERCENT (BEAKER) (test 0 % riyt=619) NEUTROPHILS ABSOLUTE COUNT (BEAKER) (test 7.12 K/ L 1.56-6.13 shou=929) LYMPHOCYTES ABSOLUTE COUNT (BEAKER) (test 1.24 K/ L 1.18-3.74 eqhx=516) MONOCYTES ABSOLUTE COUNT (BEAKER) (test 0.90 K/ L 0.24-0.36 eekc=918) EOSINOPHILS ABSOLUTE COUNT (BEAKER) (test 0.41 K/ L 0.04-0.36 hfjf=952) BASOPHILS ABSOLUTE COUNT (BEAKER) (test 0.04 K/ L 0.01-0.08 kovu=120) IMMATURE GRANULOCYTES-RELATIVE PERCENT (BEAKER) 2 % 0-1 (test zwnw=7743) POCT-GLUCOSE [id number] 07:18:00 Test Item Value Reference Range Comments POC-GLUCOSE METER (BEAKER) 244 mg/dL 70-[address] [facility] [address] [facility] (test emcd=7849) [facility] [address] CALCIUM, [id number] 04:58:00 Test Item Value Reference Range Comments CALCIUM IONIZED (BEAKER) (test azqo=873) 1.08 mmol/L 1.12-1.27 PH, BLOOD (BEAKER) (test qvaj=9431) 7.38 COMPREHENSIVE METABOLIC [id number] 04:24:00 Test Item Value Reference Range Comments TOTAL PROTEIN (BEAKER) 5.7 gm/dL 6.0-8.3 (test elwj=516) ALBUMIN (BEAKER) (test 2.6 g/dL 3.5-5.0 mqlf=8325) ALKALINE PHOSPHATASE 210 U/L 40-150 (BEAKER) (test npfl=402) BILIRUBIN TOTAL (BEAKER) 0.3 mg/dL 0.2-1.2 (test bkby=882) SODIUM (BEAKER) (test 137 meq/L 136-145 pkki=370) POTASSIUM (BEAKER) (test 4.0 meq/L 3.5-5.1 obec=282) CHLORIDE (BEAKER) (test 103 meq/L 98-107 uigy=775) CO2 (BEAKER) (test 22 meq/L 22-29 mfbg=202) BLOOD UREA NITROGEN 34 mg/dL 7-21 (BEAKER) (test gqmo=180) CREATININE (BEAKER) (test 3.34 mg/dL 0.57-1.25 xzzp=212) GLUCOSE RANDOM (BEAKER) 244 mg/dL 70-105 (test rtwg=042) CALCIUM (BEAKER) (test 8.0 mg/dL 8.4-10.2 sons=213) AST (SGOT) (BEAKER) (test 24 U/L 5-34 ysbh=555) ALT (SGPT) (BEAKER) (test 30 U/L 6-55 vgqg=704) EGFR (BEAKER) (test 14 mL/min/1.73 sq m ESTIMATED GFR IS NOT ngya=5522) ACCURATE CREATININE CLEARANCE IN PREDICTING GLOMERULAR FILTRATION RATE. ESTIMATED GFR IS NOT APPLICABLE FOR DIALYSIS PATIENTS. [id number] 04:23:00 Test Item Value Reference Range Comments PHOSPHORUS (BEAKER) (test qlkx=851) 4.1 mg/dL 2.3-4.7 [id number] 04:23:00 Test Item Value Reference Range Comments MAGNESIUM (BEAKER) (test wexo=775) 1.7 mg/dL 1.6-2.6 [id number] 04:17:00 Test Item Value Reference Range Comments PARTIAL THROMBOPLASTIN TIME (BEAKER) (test 22.4 seconds 22.5-36.0 eylq=858) PROTHROMBIN [id number] 04:16:00 Test Item Value Reference Range Comments PROTIME (BEAKER) (test pfrh=009) 14.3 seconds 11.7-14.7 INR (BEAKER) (test kitc=414) 1.1 <=5.9 RECOMMENDED COUMADIN/WARFARIN INR THERAPY RANGESSTANDARD DOSE: 2.0 - 3.0 Includes: PROPHYLAXIS forvenous thrombosis, systemic embolization; TREATMENT for venous thrombosis and/or pulmonary embolus.HIGH RISK: Target INR is 2.5-3.5 for patients with mechanical heart valves.RAD, CHEST, 1 VIEW, NON [id number] 03:26:00Reason for exam:->pleural effusionShould this be performed at the bedside?->YesFINAL REPORT CLINICAL INDICATION: Pleural effusion Comparison: 05/08/2018 The cardiomediastinal contours are stable. Central pulmonary vascular congestion and bilateral parenchymal and pleural opacities are unchanged. There is no pneumothorax. A right PICC line is stable. Signed:Newton Engleeport Verified Date/Time: 05/09/2018 03:26:29 Reading Location: [address] Reading Room POCT-GLUCOSE [id number] 23:03:00 Test Item Value Reference Range Comments POC-GLUCOSE METER (BEAKER) 181 mg/dL 70-110 TESTED AT [address] (test ewlw=2435) [facility] [address] POCT-GLUCOSE [id number] 20:41:00 Test Item Value Reference Range Comments POC-GLUCOSE METER (BEAKER) 201 mg/dL 70-110 TESTED AT [address] (test epvn=1898) [facility] [address] POCT-GLUCOSE [id number] 18:47:00 Test Item Value Reference Range Comments POC-GLUCOSE METER (BEAKER) 242 mg/dL 70-110 TESTED AT [address] (test rxiq=8384) [facility] [address] POCT-GLUCOSE [id number] 11:49:00 Test Item Value Reference Range Comments POC-GLUCOSE METER (BEAKER) 178 mg/dL 70-110 TESTED AT [address] (test yfnv=2942) [facility] [address] BLOOD GAS, [id number] 11:27:00 Test Item Value Reference Range Comments PH VENOUS (BEAKER) (test jase=609) 7.43 7.32-7.42 PCO2 VENOUS (BEAKER) (test yjuz=280) 36 mmHg 41-51 PO2 VENOUS (BEAKER) (test uxoo=213) 65 mmHg 25-40 O2 SATURATION VENOUS (BEAKER) (test jjkx=790) 93.6 % 40.0-70.0 HCO3 VENOUS (BEAKER) (test doof=824) 24 mmol/L 21-29 BASE EXCESS VENOUS (BEAKER) (test hiiy=136) -0.5 mmol/L -2.0-3.0 PATIENT TEMPERATURE (BEAKER) (test vmqy=5553) 37.0 C FIO2 (BEAKER) (test vqum=5077) 21.0 % CBC W/PLT COUNT & AUTO [id number] 07:40:00 Test Item Value Reference Range Comments WHITE BLOOD CELL COUNT (BEAKER) (test tbuq=599) 9.2 K/ L 3.5-10.5 RED BLOOD CELL COUNT (BEAKER) (test mtbl=156) 2.65 M/ L 3.93-5.22 HEMOGLOBIN (BEAKER) (test ugma=237) 7.7 GM/DL 11.2-15.7 HEMATOCRIT (BEAKER) (test wgdw=336) 24.4 % 34.1-44.9 MEAN CORPUSCULAR VOLUME (BEAKER) (test hfox=234) 92.1 fL 79.4-94.8 MEAN CORPUSCULAR HEMOGLOBIN (BEAKER) (test 29.1 pg 25.6-32.2 kqkq=372) MEAN CORPUSCULAR HEMOGLOBIN CONC (BEAKER) (test 31.6 GM/DL 32.2-35.5 euou=356) RED CELL DISTRIBUTION WIDTH (BEAKER) (test 16.4 % 11.7-14.4 txmx=241) PLATELET COUNT (BEAKER) (test gewq=402) 135 K/CU MM 150-450 MEAN PLATELET VOLUME (BEAKER) (test efgk=195) 12.9 fL 9.4-12.3 NUCLEATED RED BLOOD CELLS (BEAKER) (test 0 /100 WBC 0-0 oipw=803) NEUTROPHILS RELATIVE PERCENT (BEAKER) (test 72 % ldog=068) LYMPHOCYTES RELATIVE PERCENT (BEAKER) (test 13 % jzui=002) MONOCYTES RELATIVE PERCENT (BEAKER) (test 10 % vunz=659) EOSINOPHILS RELATIVE PERCENT (BEAKER) (test 4 % nyfa=264) BASOPHILS RELATIVE PERCENT (BEAKER) (test 0 % lfup=774) NEUTROPHILS ABSOLUTE COUNT (BEAKER) (test 6.61 K/ L 1.56-6.13 zxpc=385) LYMPHOCYTES ABSOLUTE COUNT (BEAKER) (test 1.18 K/ L 1.18-3.74 owym=821) MONOCYTES ABSOLUTE COUNT (BEAKER) (test 0.90 K/ L 0.24-0.36 hvfd=907) EOSINOPHILS ABSOLUTE COUNT (BEAKER) (test 0.34 K/ L 0.04-0.36 lkhc=330) BASOPHILS ABSOLUTE COUNT (BEAKER) (test 0.03 K/ L 0.01-0.08 aaxk=254) IMMATURE GRANULOCYTES-RELATIVE PERCENT (BEAKER) 1 % 0-1 (test mjdl=1907) RAD, CHEST, 1 VIEW, NON [id number] 05:40:00Reason for exam:->pleural effusionShould this be performed at the bedside?->YesFINAL REPORT RAD, CHEST, 1 VIEW, NON DEPT INDICATION: pleural effusion COMPARISON: Prior day's exam FINDINGS: Portable frontal view of the chest. IMPRESSION: Support Lines: Stable. Lungs and pleura: Unchanged airspace and pleural opacities. No pneumothorax.Heart and mediastinum: Stable contours. Additional findings: None. Signed: Carmel Hale Verified Date/ Time: 05/08/2018 05:40:53 Reading Location: [address] Transitional Reading Room CBC W/PLT COUNT & AUTO [id number] 04:50:00 Test Item Value Reference Range Comments WHITE BLOOD CELL COUNT (BEAKER) (test gnic=608) 9.9 K/ L 3.5-10.5 RED BLOOD CELL COUNT (BEAKER) (test hojt=551) 2.31 M/ L 3.93-5.22 HEMOGLOBIN (BEAKER) (test wxoc=720) 6.7 GM/DL 11.2-15.7 HEMATOCRIT (BEAKER) (test bstm=515) 21.5 % 34.1-44.9 MEAN CORPUSCULAR VOLUME (BEAKER) (test wvcg=474) 93.1 fL 79.4-94.8 MEAN CORPUSCULAR HEMOGLOBIN (BEAKER) (test 29.0 pg 25.6-32.2 nbeq=044) MEAN CORPUSCULAR HEMOGLOBIN CONC (BEAKER) (test 31.2 GM/DL 32.2-35.5 cajo=118) RED CELL DISTRIBUTION WIDTH (BEAKER) (test 16.3 % 11.7-14.4 btzu=036) PLATELET COUNT (BEAKER) (test ekyb=413) 128 K/CU MM 150-450 MEAN PLATELET VOLUME (BEAKER) (test ulik=793) 12.8 fL 9.4-12.3 NUCLEATED RED BLOOD CELLS (BEAKER) (test 0 /100 WBC 0-0 czyp=373) NEUTROPHILS RELATIVE PERCENT (BEAKER) (test 74 % txnb=422) LYMPHOCYTES RELATIVE PERCENT (BEAKER) (test 12 % vlht=563) MONOCYTES RELATIVE PERCENT (BEAKER) (test 9 % eyny=078) EOSINOPHILS RELATIVE PERCENT (BEAKER) (test 3 % cfdp=540) BASOPHILS RELATIVE PERCENT (BEAKER) (test 0 % kben=887) NEUTROPHILS ABSOLUTE COUNT (BEAKER) (test 7.33 K/ L 1.56-6.13 kkpf=400) LYMPHOCYTES ABSOLUTE COUNT (BEAKER) (test 1.18 K/ L 1.18-3.74 loum=491) MONOCYTES ABSOLUTE COUNT (BEAKER) (test 0.89 K/ L 0.24-0.36 oszg=984) EOSINOPHILS ABSOLUTE COUNT (BEAKER) (test 0.32 K/ L 0.04-0.36 ntmx=002) BASOPHILS ABSOLUTE COUNT (BEAKER) (test 0.04 K/ L 0.01-0.08 zevq=204) IMMATURE GRANULOCYTES-RELATIVE PERCENT (BEAKER) 1 % 0-1 (test zrzo=8005) CALCIUM, [id number] 04:49:00 Test Item Value Reference Range Comments CALCIUM IONIZED (BEAKER) (test vnrl=974) 1.10 mmol/L 1.12-1.27 PH, BLOOD (BEAKER) (test mhvs=7885) 7.40 COMPREHENSIVE METABOLIC [id number] 04:41:00 Test Item Value Reference Range Comments TOTAL PROTEIN (BEAKER) 6.0 gm/dL 6.0-8.3 (test swlk=470) ALBUMIN (BEAKER) (test 2.7 g/dL 3.5-5.0 fhrk=5932) ALKALINE PHOSPHATASE 195 U/L 40-150 (BEAKER) (test swri=770) BILIRUBIN TOTAL (BEAKER) 0.4 mg/dL 0.2-1.2 (test hlmi=406) SODIUM (BEAKER) (test 135 meq/L 136-145 ibuq=656) POTASSIUM (BEAKER) (test 3.8 meq/L 3.5-5.1 upzp=311) CHLORIDE (BEAKER) (test 104 meq/L 98-107 pwkl=675) CO2 (BEAKER) (test 24 meq/L 22-29 acue=527) BLOOD UREA NITROGEN 25 mg/dL 7-21 (BEAKER) (test dskc=273) CREATININE (BEAKER) (test 2.64 mg/dL 0.57-1.25 qjho=415) GLUCOSE RANDOM (BEAKER) 140 mg/dL 70-105 (test wvux=425) CALCIUM (BEAKER) (test 7.8 mg/dL 8.4-10.2 saee=551) AST (SGOT) (BEAKER) (test 13 U/L 5-34 brdg=935) ALT (SGPT) (BEAKER) (test 20 U/L 6-55 tdqf=163) EGFR (BEAKER) (test 18 mL/min/1.73 sq m ESTIMATED GFR IS NOT qrsn=4739) ACCURATE CREATININE CLEARANCE IN PREDICTING GLOMERULAR FILTRATION RATE. ESTIMATED GFR IS NOT APPLICABLE FOR DIALYSIS PATIENTS. [id number] 04:38:00 Test Item Value Reference Range Comments PHOSPHORUS (BEAKER) (test flzr=679) 3.4 mg/dL 2.3-4.7 [id number] 04:38:00 Test Item Value Reference Range Comments MAGNESIUM (BEAKER) (test omje=105) 1.8 mg/dL 1.6-2.6 POCT-GLUCOSE [id number] 21:36:00 Test Item Value Reference Range Comments POC-GLUCOSE METER (BEAKER) 148 mg/dL 70-110 TESTED AT [address] (test qyex=4324) [place] [id number] POCT-GLUCOSE [id number] 17:22:00 Test Item Value Reference Range Comments POC-GLUCOSE METER (BEAKER) 214 mg/dL 70-110 TESTED AT [address] (test ncqb=2463) [place] [id number] POCT-GLUCOSE [id number] 11:58:00 Test Item Value Reference Range Comments POC-GLUCOSE METER (BEAKER) 96 mg/dL 70-110 TESTED AT [address] (test wsiw=0152) [place] [id number] POCT-GLUCOSE [id number] 07:07:00 Test Item Value Reference Range Comments POC-GLUCOSE METER (BEAKER) 98 mg/dL 70-110 TESTED AT [address] (test abde=4262) [place] [id number] RAD, CHEST, 1 VIEW, NON [id number] 06:03:00Reason for exam:->pleural effusionShould this be performed [...] [place] Verified Date/Time: 2018 06:03:05 Reading Location: [facility] Trans[facility] Reading Room COMPREHENSIVE METABOLIC [id number] 05:10:00 Test Item Value Reference Range Comments TOTAL PROTEIN (BEAKER) 6.0 gm/dL 6.0-8.3 (test incu=830) ALBUMIN (BEAKER) (test 2.7 g/dL 3.5-5.0 cvro=8298) ALKALINE PHOSPHATASE 200 U/L 40-150 (BEAKER) (test dbmm=795) BILIRUBIN TOTAL (BEAKER) 0.4 mg/dL 0.2-1.2 (test juvl=649) SODIUM (BEAKER) (test 136 meq/L 136-145 yadc=774) POTASSIUM (BEAKER) (test 4.1 meq/L 3.5-5.1 zrxk=945) CHLORIDE (BEAKER) (test 104 meq/L 98-107 wjjc=824) CO2 (BEAKER) (test 21 meq/L 22-29 arbk=551) BLOOD UREA NITROGEN 51 mg/dL 7-21 (BEAKER) (test wlhg=603) CREATININE (BEAKER) (test 4.02 mg/dL 0.57-1.25 smwk=738) GLUCOSE RANDOM (BEAKER) 111 mg/dL 70-105 (test zusx=261) CALCIUM (BEAKER) (test 8.2 mg/dL 8.4-10.2 mwnt=852) AST (SGOT) (BEAKER) (test 14 U/L 5-34 movb=569) ALT (SGPT) (BEAKER) (test 23 U/L 6-55 njlk=719) EGFR (BEAKER) (test 11 mL/min/1.73 sq m ESTIMATED GFR IS NOT zcdz=8995) ACCURATE CREATININE CLEARANCE IN PREDICTING GLOMERULAR FILTRATION RATE. ESTIMATED GFR IS NOT APPLICABLE FOR DIALYSIS PATIENTS. [id number] 05:06:00 Test Item Value Reference Range Comments MAGNESIUM (BEAKER) (test uaho=968) 1.9 mg/dL 1.6-2.6 CBC W/PLT COUNT & AUTO [id number] 05:02:00 Test Item Value Reference Range Comments WHITE BLOOD CELL COUNT (BEAKER) (test bbbh=939) 12.4 K/ L 3.5-10.5 RED BLOOD CELL COUNT (BEAKER) (test wgmu=181) 2.72 M/ L 3.93-5.22 HEMOGLOBIN (BEAKER) (test mdef=043) 7.8 GM/DL 11.2-15.7 HEMATOCRIT (BEAKER) (test vgjb=766) 25.1 % 34.1-44.9 MEAN CORPUSCULAR VOLUME (BEAKER) (test pmsk=460) 92.3 fL 79.4-94.8 MEAN CORPUSCULAR HEMOGLOBIN (BEAKER) (test 28.7 pg 25.6-32.2 sduo=653) MEAN CORPUSCULAR HEMOGLOBIN CONC (BEAKER) (test 31.1 GM/DL 32.2-35.5 ztgq=307) RED CELL DISTRIBUTION WIDTH (BEAKER) (test 16.1 % 11.7-14.4 yqcy=634) PLATELET COUNT (BEAKER) (test yikw=900) 150 K/CU MM 150-450 MEAN PLATELET VOLUME (BEAKER) (test oldl=960) 12.3 fL 9.4-12.3 NUCLEATED RED BLOOD CELLS (BEAKER) (test 0 /100 WBC 0-0 zowp=801) NEUTROPHILS RELATIVE PERCENT (BEAKER) (test 81 % yuwn=715) LYMPHOCYTES RELATIVE PERCENT (BEAKER) (test 8 % gljv=734) MONOCYTES RELATIVE PERCENT (BEAKER) (test 8 % ggaa=289) EOSINOPHILS RELATIVE PERCENT (BEAKER) (test 2 % ikpo=923) BASOPHILS RELATIVE PERCENT (BEAKER) (test 0 % mrug=367) NEUTROPHILS ABSOLUTE COUNT (BEAKER) (test 10.02 K/ L 1.56-6.13 kqlr=635) LYMPHOCYTES ABSOLUTE COUNT (BEAKER) (test 0.97 K/ L 1.18-3.74 fiks=216) MONOCYTES ABSOLUTE COUNT (BEAKER) (test 0.93 K/ L 0.24-0.36 hsoe=444) EOSINOPHILS ABSOLUTE COUNT (BEAKER) (test 0.28 K/ L 0.04-0.36 iseg=924) BASOPHILS ABSOLUTE COUNT (BEAKER) (test 0.04 K/ L 0.01-0.08 qxhs=840) IMMATURE GRANULOCYTES-RELATIVE PERCENT (BEAKER) 2 % 0-1 (test cavf=5976) POCT-GLUCOSE [id number] 17:48:00 Test Item Value Reference Range Comments POC-GLUCOSE METER (BEAKER) 183 mg/dL 70-110 TESTED AT [address] (test jivn=5771) [facility] [address] POCT-GLUCOSE [id number] 12:24:00 Test Item Value Reference Range Comments POC-GLUCOSE METER (BEAKER) 73 mg/dL 70-110 TESTED AT [address] (test zvbi=7399) [facility] [address] POCT-GLUCOSE [id number] 08:17:00 Test Item Value Reference Range Comments POC-GLUCOSE METER (BEAKER) 123 mg/dL 70-110 TESTED AT [address] (test zalr=2628) [facility] [address] COMPREHENSIVE METABOLIC [id number] 05:38:00 Test Item Value Reference Range Comments TOTAL PROTEIN (BEAKER) 5.7 gm/dL 6.0-8.3 (test sylv=049) ALBUMIN (BEAKER) (test 2.6 g/dL 3.5-5.0 gvgz=9116) ALKALINE PHOSPHATASE 188 U/L 40-150 (BEAKER) (test lnhg=324) BILIRUBIN TOTAL (BEAKER) 0.4 mg/dL 0.2-1.2 (test egyl=563) SODIUM (BEAKER) (test 138 meq/L 136-145 vlzg=115) POTASSIUM (BEAKER) (test 4.0 meq/L 3.5-5.1 ngzd=329) CHLORIDE (BEAKER) (test 106 meq/L 98-107 wfky=756) CO2 (BEAKER) (test 24 meq/L 22-29 jusk=360) BLOOD UREA NITROGEN 45 mg/dL 7-21 (BEAKER) (test gpzo=351) CREATININE (BEAKER) (test 3.17 mg/dL 0.57-1.25 ebrq=583) GLUCOSE RANDOM (BEAKER) 100 mg/dL 70-105 (test rftz=704) CALCIUM (BEAKER) (test 8.1 mg/dL 8.4-10.2 kese=832) AST (SGOT) (BEAKER) (test 12 U/L 5-34 asxj=782) ALT (SGPT) (BEAKER) (test 22 U/L 6-55 pibj=105) EGFR (BEAKER) (test 15 mL/min/1.73 sq m ESTIMATED GFR IS NOT eltb=6707) ACCURATE CREATININE CLEARANCE IN PREDICTING GLOMERULAR FILTRATION RATE. ESTIMATED GFR IS NOT APPLICABLE FOR DIALYSIS PATIENTS. [id number] 05:32:00 Test Item Value Reference Range Comments MAGNESIUM (BEAKER) (test cqpg=105) 2.0 mg/dL 1.6-2.6 CBC W/PLT COUNT & AUTO [id number] 04:30:00 Test Item Value Reference Range Comments WHITE BLOOD CELL COUNT (BEAKER) (test umlx=663) 8.7 K/ L 3.5-10.5 RED BLOOD CELL COUNT (BEAKER) (test mski=964) 2.73 M/ L 3.93-5.22 HEMOGLOBIN (BEAKER) (test unco=336) 7.7 GM/DL 11.2-15.7 HEMATOCRIT (BEAKER) (test gbzy=449) 25.2 % 34.1-44.9 MEAN CORPUSCULAR VOLUME (BEAKER) (test lzxa=312) 92.3 fL 79.4-94.8 MEAN CORPUSCULAR HEMOGLOBIN (BEAKER) (test 28.2 pg 25.6-32.2 ytje=471) MEAN CORPUSCULAR HEMOGLOBIN CONC (BEAKER) (test 30.6 GM/DL 32.2-35.5 rrgo=047) RED CELL DISTRIBUTION WIDTH (BEAKER) (test 16.3 % 11.7-14.4 mxuf=788) PLATELET COUNT (BEAKER) (test sojs=107) 129 K/CU MM 150-450 MEAN PLATELET VOLUME (BEAKER) (test hbaf=573) 11.8 fL 9.4-12.3 NUCLEATED RED BLOOD CELLS (BEAKER) (test 0 /100 WBC 0-0 fwki=051) NEUTROPHILS RELATIVE PERCENT (BEAKER) (test 74 % rljs=839) LYMPHOCYTES RELATIVE PERCENT (BEAKER) (test 13 % xhqf=625) MONOCYTES RELATIVE PERCENT (BEAKER) (test 10 % xequ=596) EOSINOPHILS RELATIVE PERCENT (BEAKER) (test 2 % gwsy=976) BASOPHILS RELATIVE PERCENT (BEAKER) (test 0 % opyb=847) NEUTROPHILS ABSOLUTE COUNT (BEAKER) (test 6.41 K/ L 1.56-6.13 gvsv=051) LYMPHOCYTES ABSOLUTE COUNT (BEAKER) (test 1.14 K/ L 1.18-3.74 uxod=407) MONOCYTES ABSOLUTE COUNT (BEAKER) (test 0.83 K/ L 0.24-0.36 rpcw=809) EOSINOPHILS ABSOLUTE COUNT (BEAKER) (test 0.21 K/ L 0.04-0.36 ifoc=853) BASOPHILS ABSOLUTE COUNT (BEAKER) (test 0.02 K/ L 0.01-0.08 vcoi=770) IMMATURE GRANULOCYTES-RELATIVE PERCENT (BEAKER) 1 % 0-1 (test ewom=3167) POCT-GLUCOSE [id number] 20:43:00 Test Item Value Reference Range Comments POC-GLUCOSE METER (BEAKER) 191 mg/dL 70-110 TESTED AT [address] (test akiu=9887) [place] [address] POCT-GLUCOSE [id number] 18:07:00 Test Item Value Reference Range Comments POC-GLUCOSE METER (BEAKER) 270 mg/dL 70-110 TESTED AT [address] (test muqe=9522) [place] [address] POCT-GLUCOSE [id number] 10:27:00 Test Item Value Reference Range Comments POC-GLUCOSE METER (BEAKER) 137 mg/dL 70-110 TESTED AT [address] (test mwva=6404) [place] [address] URINE [id number] 08:10:00 Test Item Value Reference Range Comments CULTURE (BEAKER) (test >100,000 col/mL Madie vtop=3515) albicans GRAM STAIN RESULT (BEAKER) 3+ WBCs (test yrks=9037) GRAM STAIN RESULT (BEAKER) 2+ yeast (test oloq=59471) RAD, CHEST, 1 VIEW, NON [id number] 07:05:00Reason for exam:->dyspnea, pulm edemaShould this be [...] MDReport Verified Date/Time: 05/05/2018 07:05:00 Reading Location: [facility] [id number] Ortho Consult Reading Room COMPREHENSIVE METABOLIC [id number] 05: 31:00 Test Item Value Reference Range Comments TOTAL PROTEIN (BEAKER) 5.7 gm/dL 6.0-8.3 (test odaq=330) ALBUMIN (BEAKER) (test 2.6 g/dL 3.5-5.0 zbho=7629) ALKALINE PHOSPHATASE 213 U/L 40-150 (BEAKER) (test bhhw=880) BILIRUBIN TOTAL (BEAKER) 0.5 mg/dL 0.2-1.2 (test mcyh=284) SODIUM (BEAKER) (test 136 meq/L 136-145 tsls=211) POTASSIUM (BEAKER) (test 4.0 meq/L 3.5-5.1 kvhw=618) CHLORIDE (BEAKER) (test 103 meq/L 98-107 xdfk=818) CO2 (BEAKER) (test 24 meq/L 22-29 yesr=221) BLOOD UREA NITROGEN 63 mg/dL 7-21 (BEAKER) (test sthc=288) CREATININE (BEAKER) (test 3.48 mg/dL 0.57-1.25 oljm=371) GLUCOSE RANDOM (BEAKER) 156 mg/dL 70-105 (test qvlu=713) CALCIUM (BEAKER) (test 8.3 mg/dL 8.4-10.2 vscv=058) AST (SGOT) (BEAKER) (test 21 U/L 5-34 yrek=846) ALT (SGPT) (BEAKER) (test 30 U/L 6-55 dlwl=160) EGFR (BEAKER) (test 13 mL/min/1.73 sq m ESTIMATED GFR IS NOT sxij=5661) ACCURATE CREATININE CLEARANCE IN PREDICTING GLOMERULAR FILTRATION RATE. ESTIMATED GFR IS NOT APPLICABLE FOR DIALYSIS PATIENTS. [id number] 05:20:00 Test Item Value Reference Range Comments MAGNESIUM (BEAKER) (test egvi=474) 1.5 mg/dL 1.6-2.6 [id number] 05:19:00 Test Item Value Reference Range Comments PHOSPHORUS (BEAKER) (test rjjx=072) 4.8 mg/dL 2.3-4.7 CBC W/PLT COUNT & AUTO [id number] 04:29:00 Test Item Value Reference Range Comments WHITE BLOOD CELL COUNT (BEAKER) (test xpnr=501) 10.7 K/ L 3.5-10.5 RED BLOOD CELL COUNT (BEAKER) (test lplx=266) 2.90 M/ L 3.93-5.22 HEMOGLOBIN (BEAKER) (test dlgr=922) 8.3 GM/DL 11.2-15.7 HEMATOCRIT (BEAKER) (test sgre=673) 25.9 % 34.1-44.9 MEAN CORPUSCULAR VOLUME (BEAKER) (test xufa=242) 89.3 fL 79.4-94.8 MEAN CORPUSCULAR HEMOGLOBIN (BEAKER) (test 28.6 pg 25.6-32.2 wsub=513) MEAN CORPUSCULAR HEMOGLOBIN CONC (BEAKER) (test 32.0 GM/DL 32.2-35.5 nxal=963) RED CELL DISTRIBUTION WIDTH (BEAKER) (test 16.1 % 11.7-14.4 upnx=176) PLATELET COUNT (BEAKER) (test qpwm=717) 130 K/CU MM 150-450 MEAN PLATELET VOLUME (BEAKER) (test hhjb=474) 12.3 fL 9.4-12.3 NUCLEATED RED BLOOD CELLS (BEAKER) (test 0 /100 WBC 0-0 scgs=950) NEUTROPHILS RELATIVE PERCENT (BEAKER) (test 86 % tjqf=633) LYMPHOCYTES RELATIVE PERCENT (BEAKER) (test 6 % ggvv=136) MONOCYTES RELATIVE PERCENT (BEAKER) (test 5 % wvew=705) EOSINOPHILS RELATIVE PERCENT (BEAKER) (test 1 % slec=309) BASOPHILS RELATIVE PERCENT (BEAKER) (test 0 % tpkv=325) NEUTROPHILS ABSOLUTE COUNT (BEAKER) (test 9.27 K/ L 1.56-6.13 yllj=248) LYMPHOCYTES ABSOLUTE COUNT (BEAKER) (test 0.63 K/ L 1.18-3.74 dngj=389) MONOCYTES ABSOLUTE COUNT (BEAKER) (test 0.58 K/ L 0.24-0.36 lkzx=430) EOSINOPHILS ABSOLUTE COUNT (BEAKER) (test 0.10 K/ L 0.04-0.36 snwv=115) BASOPHILS ABSOLUTE COUNT (BEAKER) (test 0.03 K/ L 0.01-0.08 hazf=965) IMMATURE GRANULOCYTES-RELATIVE PERCENT (BEAKER) 1 % 0-1 (test kzoa=1591) [id number] 02:30:00 Test Item Value Reference Range Comments PHOSPHORUS (BEAKER) (test zfou=587) 4.3 mg/dL 2.3-4.7 POCT-GLUCOSE [id number] 20:26:00 Test Item Value Reference Range Comments POC-GLUCOSE METER (BEAKER) 186 mg/dL 70-110 TESTED AT [address] (test mouf=1904) [place] [address] POCT-GLUCOSE [id number] 19:16:00 Test Item Value Reference Range Comments POC-GLUCOSE METER (BEAKER) 134 mg/dL 70-110 TESTED AT [address] (test uyeb=8289) [place] [address] BASIC METABOLIC [id number] 18:30:00 Test Item Value Reference Range Comments SODIUM (BEAKER) (test 137 meq/L 136-145 pkkg=574) POTASSIUM (BEAKER) (test 3.9 meq/L 3.5-5.1 mkui=855) CHLORIDE (BEAKER) (test 101 meq/L 98-107 hgxm=673) CO2 (BEAKER) (test 25 meq/L 22-29 welo=247) BLOOD UREA NITROGEN 58 mg/dL 7-21 (BEAKER) (test ftgm=937) CREATININE (BEAKER) (test 3.02 mg/dL 0.57-1.25 bysl=775) GLUCOSE RANDOM (BEAKER) 118 mg/dL 70-105 (test aqkb=836) CALCIUM (BEAKER) (test 8.8 mg/dL 8.4-10.2 ffxn=522) EGFR (BEAKER) (test 15 mL/min/1.73 sq m ESTIMATED GFR IS NOT hojl=7875) ACCURATE CREATININE CLEARANCE IN PREDICTING GLOMERULAR FILTRATION RATE. ESTIMATED GFR IS NOT APPLICABLE FOR DIALYSIS PATIENTS. [id number] 18:26:00 Test Item Value Reference Range Comments PHOSPHORUS (BEAKER) (test ozcy=124) 4.2 mg/dL 2.3-4.7 [id number] 18:26:00 Test Item Value Reference Range Comments MAGNESIUM (BEAKER) (test anis=088) 1.5 mg/dL 1.6-2.6 CALCIUM, [id number] 18:19:00 Test Item Value Reference Range Comments CALCIUM IONIZED (BEAKER) (test shuc=707) 1.13 mmol/L 1.12-1.27 PH, BLOOD (BEAKER) (test fthe=6241) 7.40 HEPATITIS B SURFACE [id number] 16:05:00 Test Item Value Reference Range Comments HEPATITIS B SURFACE ANTIGEN (2) (BEAKER) (test Nonreactive Nonreactive odnr=4234) BASIC METABOLIC [id number] 14:26:00 Test Item Value Reference Range Comments SODIUM (BEAKER) (test 135 meq/L 136-145 drph=368) POTASSIUM (BEAKER) (test 4.0 meq/L 3.5-5.1 jrpo=321) CHLORIDE (BEAKER) (test 101 meq/L 98-107 zyjw=496) CO2 (BEAKER) (test 22 meq/L 22-29 esxq=478) BLOOD UREA NITROGEN 73 mg/dL 7-21 (BEAKER) (test unxb=513) CREATININE (BEAKER) (test 3.63 mg/dL 0.57-1.25 vxzc=831) GLUCOSE RANDOM (BEAKER) 130 mg/dL 70-105 (test chxj=112) CALCIUM (BEAKER) (test 8.1 mg/dL 8.4-10.2 xejw=232) EGFR (BEAKER) (test 13 mL/min/1.73 sq m ESTIMATED GFR IS NOT falr=0150) ACCURATE CREATININE CLEARANCE IN PREDICTING GLOMERULAR FILTRATION RATE. ESTIMATED GFR IS NOT APPLICABLE FOR DIALYSIS PATIENTS. [id number] 14:16:00 Test Item Value Reference Range Comments PHOSPHORUS (BEAKER) (test wwig=553) 4.9 mg/dL 2.3-4.7 [id number] 14:16:00 Test Item Value Reference Range Comments MAGNESIUM (BEAKER) (test uibx=352) 1.5 mg/dL 1.6-2.6 CALCIUM, [id number] 13:49:00 Test Item Value Reference Range Comments CALCIUM IONIZED (BEAKER) (test thcf=447) 1.04 mmol/L 1.12-1.27 PH, BLOOD (BEAKER) (test ztod=3984) 7.38 POCT-GLUCOSE [id number] 12:31:00 Test Item Value Reference Range Comments POC-GLUCOSE METER (BEAKER) 123 mg/dL 70-[address] [facility] [address] [facility] (test wogp=7035) [facility] [address] EEG AWAKE AND [id number] 11:55:00Reason for exam:-> EncephalopathyShould this be performed at the bedside?->YesEEG REPORT: [facility]e Beavers[facility] Date of EE08/17Date of report: EEG start time: 08:48EEG end time: 09:10EEG #: [id number] No: [id number] ICD Code: #: G93.40 Encephalopathy- unspecifiedCPT Code: #: 98975: 01. EEG awake and drowsy;20-40 minPROCEDURE: EEG [...] clinically.Clinical Fellow: Elly GeeNeurophysiologist: Dennis Ruffin POCT-GLUCOSE [id number] 08:45:00 Test Item Value Reference Range Comments POC-GLUCOSE METER (BEAKER) 186 mg/dL 70-[address] [facility] [address] [facility] (test vvmb=9277) [facility] [address] BLOOD GAS, [id number] 07:15:00 Test Item Value Reference Range Comments PH ARTERIAL (BEAKER) (test msub=671) 7.43 7.35-7.45 PCO2 ARTERIAL (BEAKER) (test alnk=941) 26 mmHg 35-45 PO2 ARTERIAL (BEAKER) (test uilg=136) 89 mmHg 80-90 O2 SATURATION ARTERIAL (BEAKER) (test kwfv=695) 97.2 % 96.0-97.0 HCO3 ARTERIAL (BEAKER) (test ymcs=333) 17 mmol/L 21-29 BASE EXCESS ARTERIAL (BEAKER) (test ipzl=716) -6.7 mmol/L -2.0-3.0 PATIENT TEMPERATURE (BEAKER) (test qyra=1092) 37.0 C FIO2 (BEAKER) (test rcft=6555) 50.0 % COMPREHENSIVE METABOLIC [id number] 01:52:00 Test Item Value Reference Range Comments TOTAL PROTEIN (BEAKER) 6.9 gm/dL 6.0-8.3 (test mmsn=943) ALBUMIN (BEAKER) (test 3.1 g/dL 3.5-5.0 ritz=1190) ALKALINE PHOSPHATASE 292 U/L 40-150 (BEAKER) (test cizd=549) BILIRUBIN TOTAL (BEAKER) 0.5 mg/dL 0.2-1.2 (test cquf=683) SODIUM (BEAKER) (test 131 meq/L 136-145 mmpl=160) POTASSIUM (BEAKER) (test 5.8 meq/L 3.5-5.1 stjq=629) CHLORIDE (BEAKER) (test 101 meq/L 98-107 hnra=044) CO2 (BEAKER) (test 14 meq/L 22-29 dziy=947) BLOOD UREA NITROGEN 100 mg/dL 7-21 (BEAKER) (test qejb=039) CREATININE (BEAKER) (test 5.43 mg/dL 0.57-1.25 qmhg=075) GLUCOSE RANDOM (BEAKER) 153 mg/dL 70-105 (test pufx=802) CALCIUM (BEAKER) (test 7.9 mg/dL 8.4-10.2 xvys=038) AST (SGOT) (BEAKER) (test 32 U/L 5-34 idlc=111) ALT (SGPT) (BEAKER) (test 33 U/L 6-55 djgm=366) EGFR (BEAKER) (test 8 mL/min/1.73 sq m ESTIMATED GFR IS NOT ejip=3989) ACCURATE CREATININE CLEARANCE IN PREDICTING GLOMERULAR FILTRATION RATE. ESTIMATED GFR IS NOT APPLICABLE FOR DIALYSIS PATIENTS. COMPREHENSIVE METABOLIC [id number] 01:52:00 Test Item Value Reference Range Comments TOTAL PROTEIN (BEAKER) 6.9 gm/dL 6.0-8.3 (test ayel=105) ALBUMIN (BEAKER) (test 3.1 g/dL 3.5-5.0 wriu=6862) ALKALINE PHOSPHATASE 292 U/L 40-150 (BEAKER) (test dqia=765) BILIRUBIN TOTAL (BEAKER) 0.5 mg/dL 0.2-1.2 (test jwmw=174) SODIUM (BEAKER) (test 132 meq/L 136-145 xspt=782) POTASSIUM (BEAKER) (test 5.7 meq/L 3.5-5.1 vyct=598) CHLORIDE (BEAKER) (test 100 meq/L 98-107 vomo=527) CO2 (BEAKER) (test 16 meq/L 22-29 mhfw=890) BLOOD UREA NITROGEN 99 mg/dL 7-21 (BEAKER) (test mduv=000) CREATININE (BEAKER) (test 5.39 mg/dL 0.57-1.25 rgcq=491) GLUCOSE RANDOM (BEAKER) 153 mg/dL 70-105 (test ukij=457) CALCIUM (BEAKER) (test 8.0 mg/dL 8.4-10.2 dvwa=300) AST (SGOT) (BEAKER) (test 32 U/L 5-34 hdbz=962) ALT (SGPT) (BEAKER) (test 35 U/L 6-55 xfwa=065) EGFR (BEAKER) (test 8 mL/min/1.73 sq m ESTIMATED GFR IS NOT btvd=8420) ACCURATE CREATININE CLEARANCE IN PREDICTING GLOMERULAR FILTRATION RATE. ESTIMATED GFR IS NOT APPLICABLE FOR DIALYSIS PATIENTS. CBC W/PLT COUNT & AUTO [id number] 01:41:00 Test Item Value Reference Range Comments WHITE BLOOD CELL COUNT (BEAKER) (test folx=409) 11.6 K/ L 3.5-10.5 RED BLOOD CELL COUNT (BEAKER) (test epxb=644) 3.03 M/ L 3.93-5.22 HEMOGLOBIN (BEAKER) (test uznp=218) 8.8 GM/DL 11.2-15.7 HEMATOCRIT (BEAKER) (test hcsb=093) 27.0 % 34.1-44.9 MEAN CORPUSCULAR VOLUME (BEAKER) (test dlbe=295) 89.1 fL 79.4-94.8 MEAN CORPUSCULAR HEMOGLOBIN (BEAKER) (test 29.0 pg 25.6-32.2 endi=935) MEAN CORPUSCULAR HEMOGLOBIN CONC (BEAKER) (test 32.6 GM/DL 32.2-35.5 trct=539) RED CELL DISTRIBUTION WIDTH (BEAKER) (test 16.1 % 11.7-14.4 brum=602) PLATELET COUNT (BEAKER) (test xiqf=962) 143 K/CU MM 150-450 MEAN PLATELET VOLUME (BEAKER) (test jhju=379) 12.5 fL 9.4-12.3 NUCLEATED RED BLOOD CELLS (BEAKER) (test 0 /100 WBC 0-0 ixsx=768) NEUTROPHILS RELATIVE PERCENT (BEAKER) (test 86 % bmvu=094) LYMPHOCYTES RELATIVE PERCENT (BEAKER) (test 6 % ezmu=090) MONOCYTES RELATIVE PERCENT (BEAKER) (test 4 % zubu=368) EOSINOPHILS RELATIVE PERCENT (BEAKER) (test 0 % njkd=993) BASOPHILS RELATIVE PERCENT (BEAKER) (test 0 % tblf=499) NEUTROPHILS ABSOLUTE COUNT (BEAKER) (test 10.04 K/ L 1.56-6.13 varb=285) LYMPHOCYTES ABSOLUTE COUNT (BEAKER) (test 0.66 K/ L 1.18-3.74 akha=698) MONOCYTES ABSOLUTE COUNT (BEAKER) (test 0.47 K/ L 0.24-0.36 rsac=638) EOSINOPHILS ABSOLUTE COUNT (BEAKER) (test 0.04 K/ L 0.04-0.36 txkm=882) BASOPHILS ABSOLUTE COUNT (BEAKER) (test 0.03 K/ L 0.01-0.08 fzjk=028) IMMATURE GRANULOCYTES-RELATIVE PERCENT (BEAKER) 3 % 0-1 (test kmqu=7555) HEPATIC FUNCTION [id number] 01:40:00 Test Item Value Reference Range Comments TOTAL PROTEIN (BEAKER) (test iuep=993) 6.9 gm/dL 6.0-8.3 ALBUMIN (BEAKER) (test rcuq=7712) 3.1 g/dL 3.5-5.0 BILIRUBIN TOTAL (BEAKER) (test shlm=585) 0.5 mg/dL 0.2-1.2 BILIRUBIN DIRECT (BEAKER) (test kchv=536) 0.3 mg/dL 0.1-0.5 ALKALINE PHOSPHATASE (BEAKER) (test tyft=725) 292 U/L 40-150 AST (SGOT) (BEAKER) (test jpec=720) 32 U/L 5-34 ALT (SGPT) (BEAKER) (test suiz=544) 35 U/L 6-55 CBC W/PLT COUNT & AUTO [id number] 01:40:00 Test Item Value Reference Range Comments WHITE BLOOD CELL COUNT (BEAKER) (test usym=812) 11.4 K/ L 3.5-10.5 RED BLOOD CELL COUNT (BEAKER) (test dbof=170) 3.04 M/ L 3.93-5.22 HEMOGLOBIN (BEAKER) (test kfco=811) 8.8 GM/DL 11.2-15.7 HEMATOCRIT (BEAKER) (test htaw=012) 27.0 % 34.1-44.9 MEAN CORPUSCULAR VOLUME (BEAKER) (test eqse=568) 88.8 fL 79.4-94.8 MEAN CORPUSCULAR HEMOGLOBIN (BEAKER) (test 28.9 pg 25.6-32.2 igla=653) MEAN CORPUSCULAR HEMOGLOBIN CONC (BEAKER) (test 32.6 GM/DL 32.2-35.5 hhds=957) RED CELL DISTRIBUTION WIDTH (BEAKER) (test 16.2 % 11.7-14.4 xdbd=656) PLATELET COUNT (BEAKER) (test gqns=225) 145 K/CU MM 150-450 MEAN PLATELET VOLUME (BEAKER) (test corc=156) 13.2 fL 9.4-12.3 NUCLEATED RED BLOOD CELLS (BEAKER) (test 0 /100 WBC 0-0 xhge=236) NEUTROPHILS RELATIVE PERCENT (BEAKER) (test 86 % wbvx=932) LYMPHOCYTES RELATIVE PERCENT (BEAKER) (test 6 % hoka=068) MONOCYTES RELATIVE PERCENT (BEAKER) (test 5 % voho=877) EOSINOPHILS RELATIVE PERCENT (BEAKER) (test 0 % hhat=434) BASOPHILS RELATIVE PERCENT (BEAKER) (test 0 % ewcz=412) NEUTROPHILS ABSOLUTE COUNT (BEAKER) (test 9.87 K/ L 1.56-6.13 kixg=888) LYMPHOCYTES ABSOLUTE COUNT (BEAKER) (test 0.64 K/ L 1.18-3.74 gkzg=025) MONOCYTES ABSOLUTE COUNT (BEAKER) (test 0.51 K/ L 0.24-0.36 isjs=691) EOSINOPHILS ABSOLUTE COUNT (BEAKER) (test 0.03 K/ L 0.04-0.36 itmv=440) BASOPHILS ABSOLUTE COUNT (BEAKER) (test 0.02 K/ L 0.01-0.08 ltrt=907) IMMATURE GRANULOCYTES-RELATIVE PERCENT (BEAKER) 3 % 0-1 (test gejg=8526) RAD, CHEST, 1 VIEW, NON [id number] 01:25:00Reason for exam:->tachypnea, hypoxiaShould this be performed [...] MDReport Verified Date/Time: 05/04/2018 01:25:17 Reading Location: [address] Reading Room POCT-LACTIC ACID, [id number] 01:17:00 Test Item Value Reference Range Comments POC-LACTIC ACID, ARTERIAL 0.4 mmol/L 0.4-1.3 TESTED AT [address] (BEAKER) (test nhha=3390) [place] [address] POCT-BLOOD GASES, [id number] 01:17:00 Test Item Value Reference Range Comments TEMP, CELSIUS-POC (BEAKER) 37.0 (test gxeh=5608) FIO2-POC (BEAKER) (test TESTED AT [address] bmli=3180) [place] [address] PH, ARTERIAL-POC (BEAKER) 7.344 7.350-7.450 (test bkel=2717) PCO2, ARTERIAL-POC (BEAKER) 33.4 mm Hg 35.0-45.0 (test jycg=5453) PO2, ARTERIAL-POC (BEAKER) 72.0 mm Hg 80.0-90.0 (test pkid=4073) SO2, ARTERIAL-POC (BEAKER) 94.0 % 96.0-97.0 (test xmle=5566) HCO3, ARTERIAL-POC (BEAKER) 18.2 meq/L 21.0-29.0 (test iudh=6018) BASE EXCESS, ARTERIAL-POC -7.0 meq/L -2.0-3.0 (BEAKER) (test fama=8527) [id number] 01:17:00 Test Item Value Reference Range Comments POC-SODIUM (BEAKER) (test 133 meq/L 135-148 TESTED AT [address] fxyk=5491) [place] [address] [id number] 01:17:00 Test Item Value Reference Range Comments POC-POTASSIUM (BEAKER) (test 5.5 meq/L 3.6-5.5 TESTED AT [address] hmen=7433) [place] [address] [id number] 01:17:00 Test Item Value Reference Range Comments POC-GLUCOSE (BEAKER) (test 157 mg/dL 70-110 TESTED AT [address] ataz=7791) [place] [address] POCT-CALCIUM [id number] 01:17:00 Test Item Value Reference Range Comments POC-CALCIUM IONIZED (BEAKER) 1.07 mmol/L 1.12-1.27 TESTED AT [address] (test txil=6998) [place] [address] [id number] 01:17:00 Test Item Value Reference Range Comments POC-HEMATOCRIT (BEAKER) (test 27 % 36-45 TESTED AT [address] plts=8820) [place] [address] [id number] 01:17:00 Test Item Value Reference Range Comments POC-HEMOGLOBIN (BEAKER) 9.2 g/dL 12.0-15.0 TESTED AT [address] (test vzta=7430) [place] [address]TESTED AT [place] [address] POCT-GLUCOSE [id number] 22:01:00 Test Item Value Reference Range Comments POC-GLUCOSE METER (BEAKER) 142 mg/dL 70-110 TESTED AT [address] (test jkmi=2489) [place] [address] POCT-GLUCOSE [id number] 17:45:00 Test Item Value Reference Range Comments POC-GLUCOSE METER (BEAKER) 82 mg/dL 70-110 TESTED AT [address] (test tesg=9572) [place] [address] POCT-GLUCOSE [id number] 12:42:00 Test Item Value Reference Range Comments POC-GLUCOSE METER (BEAKER) 129 mg/dL 70-110 TESTED AT [address] (test riah=4300) [place] [address] BASIC METABOLIC [id number] 11:59:00 Test Item Value Reference Range Comments SODIUM (BEAKER) (test 134 meq/L 136-145 mvjw=208) POTASSIUM (BEAKER) (test 4.8 meq/L 3.5-5.1 yfiw=864) CHLORIDE (BEAKER) (test 101 meq/L 98-107 zrdi=642) CO2 (BEAKER) (test 21 meq/L 22-29 jqqc=646) BLOOD UREA NITROGEN 96 mg/dL 7-21 (BEAKER) (test ukzb=048) CREATININE (BEAKER) (test 4.93 mg/dL 0.57-1.25 aqmk=013) GLUCOSE RANDOM (BEAKER) 116 mg/dL 70-105 (test cbta=549) CALCIUM (BEAKER) (test 8.1 mg/dL 8.4-10.2 jxqa=136) EGFR (BEAKER) (test 9 mL/min/1.73 sq m ESTIMATED GFR IS NOT jlnm=1172) ACCURATE CREATININE CLEARANCE IN PREDICTING GLOMERULAR FILTRATION RATE. ESTIMATED GFR IS NOT APPLICABLE FOR DIALYSIS PATIENTS. HEPATIC FUNCTION [id number] 11:59:00 Test Item Value Reference Range Comments TOTAL PROTEIN (BEAKER) (test uxhk=460) 6.3 gm/dL 6.0-8.3 ALBUMIN (BEAKER) (test wltm=5393) 2.8 g/dL 3.5-5.0 BILIRUBIN TOTAL (BEAKER) (test svbi=134) 0.4 mg/dL 0.2-1.2 BILIRUBIN DIRECT (BEAKER) (test nkyd=667) 0.2 mg/dL 0.1-0.5 ALKALINE PHOSPHATASE (BEAKER) (test atyk=473) 220 U/L 40-150 AST (SGOT) (BEAKER) (test sdos=553) 19 U/L 5-34 ALT (SGPT) (BEAKER) (test rkpj=852) 26 U/L 6-55 CBC W/PLT COUNT & AUTO [id number] 11:41:00 Test Item Value Reference Range Comments WHITE BLOOD CELL COUNT (BEAKER) (test mivh=874) 11.5 K/ L 3.5-10.5 RED BLOOD CELL COUNT (BEAKER) (test jakp=487) 3.08 M/ L 3.93-5.22 HEMOGLOBIN (BEAKER) (test ccud=167) 8.9 GM/DL 11.2-15.7 HEMATOCRIT (BEAKER) (test njtg=459) 27.1 % 34.1-44.9 MEAN CORPUSCULAR VOLUME (BEAKER) (test xnbl=201) 88.0 fL 79.4-94.8 MEAN CORPUSCULAR HEMOGLOBIN (BEAKER) (test 28.9 pg 25.6-32.2 bprw=530) MEAN CORPUSCULAR HEMOGLOBIN CONC (BEAKER) (test 32.8 GM/DL 32.2-35.5 wide=140) RED CELL DISTRIBUTION WIDTH (BEAKER) (test 15.9 % 11.7-14.4 yzdf=616) PLATELET COUNT (BEAKER) (test xtsd=678) 151 K/CU MM 150-450 MEAN PLATELET VOLUME (BEAKER) (test hibi=227) 12.1 fL 9.4-12.3 NUCLEATED RED BLOOD CELLS (BEAKER) (test 0 /100 WBC 0-0 pclb=279) NEUTROPHILS RELATIVE PERCENT (BEAKER) (test 84 % tghw=765) LYMPHOCYTES RELATIVE PERCENT (BEAKER) (test 7 % ldih=189) MONOCYTES RELATIVE PERCENT (BEAKER) (test 5 % jseh=531) EOSINOPHILS RELATIVE PERCENT (BEAKER) (test 2 % skhp=499) BASOPHILS RELATIVE PERCENT (BEAKER) (test 0 % vuqv=850) NEUTROPHILS ABSOLUTE COUNT (BEAKER) (test 9.61 K/ L 1.56-6.13 gcoe=714) LYMPHOCYTES ABSOLUTE COUNT (BEAKER) (test 0.84 K/ L 1.18-3.74 cvgp=023) MONOCYTES ABSOLUTE COUNT (BEAKER) (test 0.59 K/ L 0.24-0.36 wtkj=814) EOSINOPHILS ABSOLUTE COUNT (BEAKER) (test 0.18 K/ L 0.04-0.36 pckc=689) BASOPHILS ABSOLUTE COUNT (BEAKER) (test 0.03 K/ L 0.01-0.08 gpaf=845) IMMATURE GRANULOCYTES-RELATIVE PERCENT (BEAKER) 2 % 0-1 (test jwkl=0851) RAD, CHEST, 1 VIEW, NON [id number] 11:17:00Reason for exam:->sobShould this be performed at [...] MDReport Verified Date/Time: 05/03/2018 11:17:19 [facility] [place] [facility] POCT- GLUCOSE [id number] 08:52:00 Test Item Value Reference Range Comments POC-GLUCOSE METER (BEAKER) 136 mg/dL 70-[address] [facility] [address] [facility] (test hoiz=6986) [facility] [address] U/S, RENAL, [id number] 08:07:00Reason for exam:->acute renal failureShould this be [...] Verified Date/Time: 05/03/2018 08: 07:49 Reading Location: [facility] B1 [id number] Ultrasound Reading Room SODIUM, RANDOM [id number] 23:21:00 Test Item Value Reference Range Comments SODIUM URINE (BEAKER) (test zbtn=762) 21 meq/L Reference Range: No NormalsCREATININE, RANDOM [id number] 23:19:00 Test Item Value Reference Range Comments CREATININE URINE (BEAKER) (test yikc=967) 141.1 mg/dL Reference Range: No NormalsUREA NITROGEN, RANDOM [id number] 23:19:00 Test Item Value Reference Range Comments UREA NITROGEN URINE (BEAKER) (test islu=732) 231 mg/dL Reference Range: No NormalsURINALYSIS W/ [id number] 23:10:00 Test Item Value Reference Range Comments COLOR (BEAKER) (test phsy=115) Yellow CLARITY (BEAKER) (test mjfx=018) Cloudy SPECIFIC GRAVITY UA (BEAKER) (test bplv=707) 1.017 1.001-1.035 PH UA (BEAKER) (test pgyf=280) 5.5 5.0-8.0 PROTEIN UA (BEAKER) (test nkyj=533) 200 mg/dL Negative GLUCOSE UA (BEAKER) (test fpca=398) Negative Negative KETONES UA (BEAKER) (test uwwf=234) Negative Negative BILIRUBIN UA (BEAKER) (test xrzs=100) Negative Negative BLOOD UA (BEAKER) (test cokv=238) Moderate Negative NITRITE UA (BEAKER) (test nsod=043) Negative Negative LEUKOCYTE ESTERASE UA (BEAKER) (test leqp=664) Large Negative UROBILINOGEN UA (BEAKER) (test zavk=373) 0.2 mg/dL 0.2-1.0 RBC UA (BEAKER) (test ilcp=991) 106 /HPF WBC UA (BEAKER) (test zfgs=777) > /HPF MUCUS (BEAKER) (test ftyr=0788) Rare SQUAMOUS EPITHELIAL (BEAKER) (test umlo=872) 3 /HPF YEAST (BEAKER) (test kutz=9154) Few SOURCE(BEAKER) (test yumb=8070) Urine, [place] POCT-GLUCOSE [id number] 20:52:00 Test Item Value Reference Range Comments POC-GLUCOSE METER (BEAKER) 71 mg/dL 70-[address] [facility] [address] [facility] (test vnfz=0044) [facility] [address] BASIC METABOLIC [id number] 20:12:00 Test Item Value Reference Range Comments SODIUM (BEAKER) (test 134 meq/L 136-145 unit=803) POTASSIUM (BEAKER) (test 4.5 meq/L 3.5-5.1 jglr=511) CHLORIDE (BEAKER) (test 102 meq/L 98-107 gdnu=587) CO2 (BEAKER) (test 20 meq/L 22-29 saxu=033) BLOOD UREA NITROGEN 91 mg/dL 7-21 (BEAKER) (test vqjb=206) CREATININE (BEAKER) (test 4.52 mg/dL 0.57-1.25 zltq=764) GLUCOSE RANDOM (BEAKER) 69 mg/dL 70-105 (test kxpz=688) CALCIUM (BEAKER) (test 7.9 mg/dL 8.4-10.2 dzfe=789) EGFR (BEAKER) (test 10 mL/min/1.73 sq m ESTIMATED GFR IS NOT itzc=6784) ACCURATE CREATININE CLEARANCE IN PREDICTING GLOMERULAR FILTRATION RATE. ESTIMATED GFR IS NOT APPLICABLE FOR DIALYSIS PATIENTS. [id number] 20:04:00 Test Item Value Reference Range Comments AMMONIA (BEAKER) (test xlmo=527) 28 mol/L 18-72 CBC W/PLT COUNT & AUTO [id number] 19:59:00 Test Item Value Reference Range Comments WHITE BLOOD CELL COUNT (BEAKER) (test meqn=730) 9.1 K/ L 3.5-10.5 RED BLOOD CELL COUNT (BEAKER) (test wrua=737) 2.81 M/ L 3.93-5.22 HEMOGLOBIN (BEAKER) (test tusy=601) 8.1 GM/DL 11.2-15.7 HEMATOCRIT (BEAKER) (test xgsj=795) 25.2 % 34.1-44.9 MEAN CORPUSCULAR VOLUME (BEAKER) (test zbsd=172) 89.7 fL 79.4-94.8 MEAN CORPUSCULAR HEMOGLOBIN (BEAKER) (test 28.8 pg 25.6-32.2 kbwq=121) MEAN CORPUSCULAR HEMOGLOBIN CONC (BEAKER) (test 32.1 GM/DL 32.2-35.5 axqg=669) RED CELL DISTRIBUTION WIDTH (BEAKER) (test 16.0 % 11.7-14.4 cftd=862) PLATELET COUNT (BEAKER) (test wamx=790) 133 K/CU MM 150-450 MEAN PLATELET VOLUME (BEAKER) (test stlu=543) 12.4 fL 9.4-12.3 NUCLEATED RED BLOOD CELLS (BEAKER) (test 0 /100 WBC 0-0 wggm=230) NEUTROPHILS RELATIVE PERCENT (BEAKER) (test 82 % ohcs=332) LYMPHOCYTES RELATIVE PERCENT (BEAKER) (test 8 % yfkp=584) MONOCYTES RELATIVE PERCENT (BEAKER) (test 7 % dkbm=656) EOSINOPHILS RELATIVE PERCENT (BEAKER) (test 2 % nsxa=950) BASOPHILS RELATIVE PERCENT (BEAKER) (test 0 % uwat=945) NEUTROPHILS ABSOLUTE COUNT (BEAKER) (test 7.50 K/ L 1.56-6.13 rcod=218) LYMPHOCYTES ABSOLUTE COUNT (BEAKER) (test 0.70 K/ L 1.18-3.74 akmq=368) MONOCYTES ABSOLUTE COUNT (BEAKER) (test 0.59 K/ L 0.24-0.36 eank=527) EOSINOPHILS ABSOLUTE COUNT (BEAKER) (test 0.19 K/ L 0.04-0.36 lzrr=387) BASOPHILS ABSOLUTE COUNT (BEAKER) (test 0.01 K/ L 0.01-0.08 atez=598) IMMATURE GRANULOCYTES-RELATIVE PERCENT (BEAKER) 1 % 0-1 (test wikw=6710) POCT-GLUCOSE [id number] 17:36:00 Test Item Value Reference Range Comments POC-GLUCOSE METER (BEAKER) 85 mg/dL 70-110 TESTED AT [address] (test xpmg=2612) [place] [address] POCT-GLUCOSE [id number] 12:16:00 Test Item Value Reference Range Comments POC-GLUCOSE METER (BEAKER) 133 mg/dL 70-110 TESTED AT [address] (test iitb=2329) [place] [address] POCT-GLUCOSE [id number] 09:17:00 Test Item Value Reference Range Comments POC-GLUCOSE METER (BEAKER) 102 mg/dL 70-110 TESTED AT [address] (test robj=1323) [place] [address] BASIC METABOLIC [id number] 05:51:00 Test Item Value Reference Range Comments SODIUM (BEAKER) (test 132 meq/L 136-145 ajdg=767) POTASSIUM (BEAKER) (test 4.6 meq/L 3.5-5.1 ckfn=767) CHLORIDE (BEAKER) (test 100 meq/L 98-107 xckw=430) CO2 (BEAKER) (test 19 meq/L 22-29 xelo=060) BLOOD UREA NITROGEN 89 mg/dL 7-21 (BEAKER) (test ixwo=293) CREATININE (BEAKER) (test 4.37 mg/dL 0.57-1.25 ixno=876) GLUCOSE RANDOM (BEAKER) 63 mg/dL 70-105 (test wacr=810) CALCIUM (BEAKER) (test 7.9 mg/dL 8.4-10.2 yxmb=168) EGFR (BEAKER) (test 10 mL/min/1.73 sq m ESTIMATED GFR IS NOT hjrx=8101) ACCURATE CREATININE CLEARANCE IN PREDICTING GLOMERULAR FILTRATION RATE. ESTIMATED GFR IS NOT APPLICABLE FOR DIALYSIS PATIENTS. B-TYPE NATRIURETIC FACTOR (BNP)2018-05-02 05:32:00 Test Item Value Reference Range Comments B-TYPE NATRIURETIC PEPTIDE (BEAKER) (test 658 pg/mL 0-100 cmxi=435) CBC W/PLT COUNT & AUTO [id number] 05:16:00 Test Item Value Reference Range Comments WHITE BLOOD CELL COUNT (BEAKER) (test tdlk=690) 9.0 K/ L 3.5-10.5 RED BLOOD CELL COUNT (BEAKER) (test xqwm=858) 2.78 M/ L 3.93-5.22 HEMOGLOBIN (BEAKER) (test arju=362) 8.1 GM/DL 11.2-15.7 HEMATOCRIT (BEAKER) (test gesj=056) 24.6 % 34.1-44.9 MEAN CORPUSCULAR VOLUME (BEAKER) (test bwah=455) 88.5 fL 79.4-94.8 MEAN CORPUSCULAR HEMOGLOBIN (BEAKER) (test 29.1 pg 25.6-32.2 zjsj=703) MEAN CORPUSCULAR HEMOGLOBIN CONC (BEAKER) (test 32.9 GM/DL 32.2-35.5 apzb=757) RED CELL DISTRIBUTION WIDTH (BEAKER) (test 15.9 % 11.7-14.4 gqub=547) PLATELET COUNT (BEAKER) (test vgxh=939) 143 K/CU MM 150-450 MEAN PLATELET VOLUME (BEAKER) (test llqn=786) 12.3 fL 9.4-12.3 NUCLEATED RED BLOOD CELLS (BEAKER) (test 0 /100 WBC 0-0 qidd=725) NEUTROPHILS RELATIVE PERCENT (BEAKER) (test 81 % utmj=813) LYMPHOCYTES RELATIVE PERCENT (BEAKER) (test 9 % fiiw=378) MONOCYTES RELATIVE PERCENT (BEAKER) (test 8 % jaib=081) EOSINOPHILS RELATIVE PERCENT (BEAKER) (test 2 % scmv=529) BASOPHILS RELATIVE PERCENT (BEAKER) (test 0 % nvfv=893) NEUTROPHILS ABSOLUTE COUNT (BEAKER) (test 7.24 K/ L 1.56-6.13 vxyj=857) LYMPHOCYTES ABSOLUTE COUNT (BEAKER) (test 0.79 K/ L 1.18-3.74 bbad=968) MONOCYTES ABSOLUTE COUNT (BEAKER) (test 0.69 K/ L 0.24-0.36 mgsa=774) EOSINOPHILS ABSOLUTE COUNT (BEAKER) (test 0.18 K/ L 0.04-0.36 bhnw=166) BASOPHILS ABSOLUTE COUNT (BEAKER) (test 0.03 K/ L 0.01-0.08 isbe=926) IMMATURE GRANULOCYTES-RELATIVE PERCENT (BEAKER) 1 % 0-1 (test scnx=9536) POCT-GLUCOSE [id number] 20:35:00 Test Item Value Reference Range Comments POC-GLUCOSE METER (BEAKER) 128 mg/dL 70-110 TESTED AT [address] (test wsve=8675) [place] [address] POCT-GLUCOSE [id number] 16:35:00 Test Item Value Reference Range Comments POC-GLUCOSE METER (BEAKER) 172 mg/dL 70-110 TESTED AT [address] (test bles=5271) [place] [address] POCT-GLUCOSE [id number] 14:05:00 Test Item Value Reference Range Comments POC-GLUCOSE METER (BEAKER) 200 mg/dL 70-110 TESTED AT [address] (test bzsi=2668) [place] [address] POCT-GLUCOSE [id number] 08:13:00 Test Item Value Reference Range Comments POC-GLUCOSE METER (BEAKER) 86 mg/dL 70-110 TESTED AT [address] (test gzch=8607) [facility] [address] BASIC METABOLIC [id number] 07:14:00 Test Item Value Reference Range Comments SODIUM (BEAKER) (test 133 meq/L 136-145 tnhr=936) POTASSIUM (BEAKER) (test 4.4 meq/L 3.5-5.1 jjbu=297) CHLORIDE (BEAKER) (test 101 meq/L 98-107 jeeg=318) CO2 (BEAKER) (test 20 meq/L 22-29 wfdd=701) BLOOD UREA NITROGEN 83 mg/dL 7-21 (BEAKER) (test ddwb=894) CREATININE (BEAKER) (test 3.85 mg/dL 0.57-1.25 tfxq=026) GLUCOSE RANDOM (BEAKER) 74 mg/dL 70-105 (test pwai=512) CALCIUM (BEAKER) (test 8.1 mg/dL 8.4-10.2 afvs=737) EGFR (BEAKER) (test 12 mL/min/1.73 sq m ESTIMATED GFR IS NOT lvpb=0433) ACCURATE CREATININE CLEARANCE IN PREDICTING GLOMERULAR FILTRATION RATE. ESTIMATED GFR IS NOT APPLICABLE FOR DIALYSIS PATIENTS. IRON, TIBC, % SAT. (WITHOUT FERRITIN)2018-05-01 06:53:00 Test Item Value Reference Range Comments IRON (BEAKER) (test qhzk=644) 19.0 ug/dL 40.0-160.0 TOTAL IRON BINDING CAPACITY (BEAKER) (test 125 ug/dL 250-450 amft=316) IRON % SATURATION (2) (BEAKER) (test uhoz=3145) 15 % 20-55 CBC W/PLT COUNT & AUTO [id number] 06:30:00 Test Item Value Reference Range Comments WHITE BLOOD CELL COUNT (BEAKER) (test xcpz=698) 8.2 K/ L 3.5-10.5 RED BLOOD CELL COUNT (BEAKER) (test owtu=425) 2.72 M/ L 3.93-5.22 HEMOGLOBIN (BEAKER) (test efsr=029) 8.0 GM/DL 11.2-15.7 HEMATOCRIT (BEAKER) (test dfga=134) 24.3 % 34.1-44.9 MEAN CORPUSCULAR VOLUME (BEAKER) (test zkgt=635) 89.3 fL 79.4-94.8 MEAN CORPUSCULAR HEMOGLOBIN (BEAKER) (test 29.4 pg 25.6-32.2 spwo=633) MEAN CORPUSCULAR HEMOGLOBIN CONC (BEAKER) (test 32.9 GM/DL 32.2-35.5 hzoa=420) RED CELL DISTRIBUTION WIDTH (BEAKER) (test 16.3 % 11.7-14.4 ychp=179) PLATELET COUNT (BEAKER) (test gzks=241) 147 K/CU MM 150-450 MEAN PLATELET VOLUME (BEAKER) (test avii=176) 12.7 fL 9.4-12.3 NUCLEATED RED BLOOD CELLS (BEAKER) (test 0 /100 WBC 0-0 tzts=595) NEUTROPHILS RELATIVE PERCENT (BEAKER) (test 76 % wexa=209) LYMPHOCYTES RELATIVE PERCENT (BEAKER) (test 12 % pezj=037) MONOCYTES RELATIVE PERCENT (BEAKER) (test 9 % ewhe=897) EOSINOPHILS RELATIVE PERCENT (BEAKER) (test 3 % wbkp=862) BASOPHILS RELATIVE PERCENT (BEAKER) (test 0 % tnmz=738) NEUTROPHILS ABSOLUTE COUNT (BEAKER) (test 6.20 K/ L 1.56-6.13 nqfg=272) LYMPHOCYTES ABSOLUTE COUNT (BEAKER) (test 0.96 K/ L 1.18-3.74 udcj=036) MONOCYTES ABSOLUTE COUNT (BEAKER) (test 0.71 K/ L 0.24-0.36 ykjc=592) EOSINOPHILS ABSOLUTE COUNT (BEAKER) (test 0.21 K/ L 0.04-0.36 sulu=355) BASOPHILS ABSOLUTE COUNT (BEAKER) (test 0.02 K/ L 0.01-0.08 qbaf=222) IMMATURE GRANULOCYTES-RELATIVE PERCENT (BEAKER) 1 % 0-1 (test ymbq=7113) POCT-GLUCOSE [id number] 05:42:00 Test Item Value Reference Range Comments POC-GLUCOSE METER (BEAKER) 87 mg/dL 70-110 TESTED AT [address] (test fssu=1479) [facility] [address] POCT-GLUCOSE [id number] 20:48:00 Test Item Value Reference Range Comments POC-GLUCOSE METER (BEAKER) 65 mg/dL 70-110 TESTED AT [address] (test cvvb=6447) [facility] [address] SODIUM, RANDOM [id number] 19:53:00 Test Item Value Reference Range Comments SODIUM URINE (BEAKER) (test vdlb=861) < meq/L Reference Range: No NormalsCREATININE, RANDOM [id number] 19:50:00 Test Item Value Reference Range Comments CREATININE URINE (BEAKER) (test yetu=890) 138.1 mg/dL Reference Range: No NormalsUREA NITROGEN, RANDOM [id number] 19:50:00 Test Item Value Reference Range Comments UREA NITROGEN URINE (BEAKER) (test cnle=250) 305 mg/dL Reference Range: No NormalsPOCT-GLUCOSE [id number] 16:47:00 Test Item Value Reference Range Comments POC-GLUCOSE METER (BEAKER) 142 mg/dL 70-[address] [facility] [address] [facility] (test rbjr=0945) [facility] [address] EOSINOPHIL SMEAR, [id number] 16:01:00 Test Item Value Reference Range Comments EOSINOPHIL SMEAR, URINE (BEAKER) (test No EOS seen No EOS seen ingd=4004) URINALYSIS W/ [id number] 15:27:00 Test Item Value Reference Range Comments COLOR (BEAKER) (test rfmj=318) Yellow CLARITY (BEAKER) (test kkot=481) Cloudy SPECIFIC GRAVITY UA (BEAKER) (test rzpb=685) 1.015 1.001-1.035 PH UA (BEAKER) (test rgsq=754) 5.0 5.0-8.0 PROTEIN UA (BEAKER) (test djmj=540) 100 mg/dL Negative GLUCOSE UA (BEAKER) (test jfpn=779) 70 mg/dL Negative KETONES UA (BEAKER) (test vhxz=091) Negative Negative BILIRUBIN UA (BEAKER) (test orjz=235) Negative Negative BLOOD UA (BEAKER) (test bgsi=865) Negative Negative NITRITE UA (BEAKER) (test qbis=711) Negative Negative LEUKOCYTE ESTERASE UA (BEAKER) (test mtkj=850) Small Negative UROBILINOGEN UA (BEAKER) (test pjqr=683) 0.2 mg/dL 0.2-1.0 RBC UA (BEAKER) (test tira=578) 5 /HPF WBC UA (BEAKER) (test ccex=765) 29 /HPF SQUAMOUS EPITHELIAL (BEAKER) (test vhtw=876) 5 /HPF HYALINE CASTS (BEAKER) (test pvia=143) 4 /LPF CASTS (BEAKER) (test xeie=7923) 7 /LPF CRYSTALS, URINE (BEAKER) (test fnzp=9521) Moderate YEAST (BEAKER) (test ctxi=9836) Rare SOURCE(BEAKER) (test ukrh=4609) POCT-GLUCOSE [id number] 13:24:00 Test Item Value Reference Range Comments POC-GLUCOSE METER (BEAKER) 198 mg/dL 70-[address] [facility] [address] [facility] (test mkgq=6832) [facility] [address] POCT-GLUCOSE [id number] 07:49:00 Test Item Value Reference Range Comments POC-GLUCOSE METER (BEAKER) 109 mg/dL 70-110 TESTED AT [address] (test bapm=3274) [facility] [address] BASIC METABOLIC [id number] 04:29:00 Test Item Value Reference Range Comments SODIUM (BEAKER) (test 133 meq/L 136-145 ceoe=342) POTASSIUM (BEAKER) (test 4.2 meq/L 3.5-5.1 xbyw=923) CHLORIDE (BEAKER) (test 101 meq/L 98-107 danb=976) CO2 (BEAKER) (test 21 meq/L 22-29 yjcg=936) BLOOD UREA NITROGEN 76 mg/dL 7-21 (BEAKER) (test iqti=154) CREATININE (BEAKER) (test 3.01 mg/dL 0.57-1.25 qspx=520) GLUCOSE RANDOM (BEAKER) 111 mg/dL 70-105 (test amtt=266) CALCIUM (BEAKER) (test 8.4 mg/dL 8.4-10.2 rjvz=466) EGFR (BEAKER) (test 16 mL/min/1.73 sq m ESTIMATED GFR IS NOT ecup=1757) ACCURATE CREATININE CLEARANCE IN PREDICTING GLOMERULAR FILTRATION RATE. ESTIMATED GFR IS NOT APPLICABLE FOR DIALYSIS PATIENTS. CBC W/PLT COUNT & AUTO [id number] 04:06:00 Test Item Value Reference Range Comments WHITE BLOOD CELL COUNT (BEAKER) (test cdks=759) 8.9 K/ L 3.5-10.5 RED BLOOD CELL COUNT (BEAKER) (test eqie=923) 2.75 M/ L 3.93-5.22 HEMOGLOBIN (BEAKER) (test ftyp=695) 8.1 GM/DL 11.2-15.7 HEMATOCRIT (BEAKER) (test onfq=956) 24.5 % 34.1-44.9 MEAN CORPUSCULAR VOLUME (BEAKER) (test xaqf=824) 89.1 fL 79.4-94.8 MEAN CORPUSCULAR HEMOGLOBIN (BEAKER) (test 29.5 pg 25.6-32.2 rybe=485) MEAN CORPUSCULAR HEMOGLOBIN CONC (BEAKER) (test 33.1 GM/DL 32.2-35.5 qaxn=709) RED CELL DISTRIBUTION WIDTH (BEAKER) (test 16.3 % 11.7-14.4 gepz=677) PLATELET COUNT (BEAKER) (test rmio=098) 151 K/CU MM 150-450 MEAN PLATELET VOLUME (BEAKER) (test asvn=633) 11.9 fL 9.4-12.3 NUCLEATED RED BLOOD CELLS (BEAKER) (test 0 /100 WBC 0-0 yglo=428) NEUTROPHILS RELATIVE PERCENT (BEAKER) (test 79 % ieav=528) LYMPHOCYTES RELATIVE PERCENT (BEAKER) (test 9 % pxgr=437) MONOCYTES RELATIVE PERCENT (BEAKER) (test 8 % rwcz=279) EOSINOPHILS RELATIVE PERCENT (BEAKER) (test 2 % fykj=199) BASOPHILS RELATIVE PERCENT (BEAKER) (test 0 % bend=186) NEUTROPHILS ABSOLUTE COUNT (BEAKER) (test 7.03 K/ L 1.56-6.13 xogr=629) LYMPHOCYTES ABSOLUTE COUNT (BEAKER) (test 0.83 K/ L 1.18-3.74 uvhr=116) MONOCYTES ABSOLUTE COUNT (BEAKER) (test 0.73 K/ L 0.24-0.36 qxrv=033) EOSINOPHILS ABSOLUTE COUNT (BEAKER) (test 0.21 K/ L 0.04-0.36 mhla=137) BASOPHILS ABSOLUTE COUNT (BEAKER) (test 0.04 K/ L 0.01-0.08 nrsb=084) IMMATURE GRANULOCYTES-RELATIVE PERCENT (BEAKER) 1 % 0-1 (test xklm=1579) POCT-GLUCOSE [id number] 21:35:00 Test Item Value Reference Range Comments POC-GLUCOSE METER (BEAKER) 136 mg/dL 70-[address] [facility] [address] [facility] (test hdkl=1090) [facility] [address] RAD, CHEST, 1 VIEW, NON [id number] 18:00:00Reason for exam:->SOBShould this be performed at [...] MDReport Verified Date/Time: 2017 18:00:36 Reading Location: [address] Reading Room POCT- GLUCOSE [id number] 17:00:00 Test Item Value Reference Range Comments POC-GLUCOSE METER (BEAKER) 229 mg/dL 70-110 TESTED AT [address] (test tain=2397) [place] [address] POCT-GLUCOSE [id number] 11:35:00 Test Item Value Reference Range Comments POC-GLUCOSE METER (BEAKER) 180 mg/dL 70-110 TESTED AT [address] (test iwem=8763) [place] [address] POCT-GLUCOSE [id number] 08:35:00 Test Item Value Reference Range Comments POC-GLUCOSE METER (BEAKER) 210 mg/dL 70-110 TESTED AT [address] (test ljlv=4550) [place] [address] BASIC METABOLIC [id number] 06:02:00 Test Item Value Reference Range Comments SODIUM (BEAKER) (test 133 meq/L 136-145 kxjz=295) POTASSIUM (BEAKER) (test 4.1 meq/L 3.5-5.1 anqp=559) CHLORIDE (BEAKER) (test 102 meq/L 98-107 rzvp=438) CO2 (BEAKER) (test 21 meq/L 22-29 odgk=481) BLOOD UREA NITROGEN 67 mg/dL 7-21 (BEAKER) (test upzd=383) CREATININE (BEAKER) (test 2.40 mg/dL 0.57-1.25 ekvm=769) GLUCOSE RANDOM (BEAKER) 212 mg/dL 70-105 (test teqt=237) CALCIUM (BEAKER) (test 8.1 mg/dL 8.4-10.2 qahk=120) EGFR (BEAKER) (test 20 mL/min/1.73 sq m ESTIMATED GFR IS NOT vulo=1576) ACCURATE CREATININE CLEARANCE IN PREDICTING GLOMERULAR FILTRATION RATE. ESTIMATED GFR IS NOT APPLICABLE FOR DIALYSIS PATIENTS. POCT-GLUCOSE [id number] 22:11:00 Test Item Value Reference Range Comments POC-GLUCOSE METER (BEAKER) 178 mg/dL 70-110 TESTED AT [address] (test vrmm=1320) [place] [id number] POCT-GLUCOSE [id number] 17:00:00 Test Item Value Reference Range Comments POC-GLUCOSE METER (BEAKER) 121 mg/dL 70-110 TESTED AT [address] (test ctyp=0206) [facility] [address] POCT-GLUCOSE [id number] 12:17:00 Test Item Value Reference Range Comments POC-GLUCOSE METER (BEAKER) 230 mg/dL 70-110 TESTED AT [address] (test auyz=7037) [place] [id number] POCT-GLUCOSE [id number] 08:00:00 Test Item Value Reference Range Comments POC-GLUCOSE METER (BEAKER) 160 mg/dL 70-110 TESTED AT [address] (test tnmh=9695) [place] [id number] BASIC METABOLIC [id number] 05:41:00 Test Item Value Reference Range Comments SODIUM (BEAKER) (test 134 meq/L 136-145 jgsr=023) POTASSIUM (BEAKER) (test 4.1 meq/L 3.5-5.1 gkfg=247) CHLORIDE (BEAKER) (test 105 meq/L 98-107 bagh=234) CO2 (BEAKER) (test 19 meq/L 22-29 csfj=248) BLOOD UREA NITROGEN 53 mg/dL 7-21 (BEAKER) (test wilp=443) CREATININE (BEAKER) (test 1.88 mg/dL 0.57-1.25 vxxp=749) GLUCOSE RANDOM (BEAKER) 137 mg/dL 70-105 (test wfjs=017) CALCIUM (BEAKER) (test 8.7 mg/dL 8.4-10.2 gkbu=821) EGFR (BEAKER) (test 27 mL/min/1.73 sq m ESTIMATED GFR IS NOT fkbg=7736) ACCURATE CREATININE CLEARANCE IN PREDICTING GLOMERULAR FILTRATION RATE. ESTIMATED GFR IS NOT APPLICABLE FOR DIALYSIS PATIENTS. CBC W/PLT COUNT & AUTO [id number] 05:03:00 Test Item Value Reference Range Comments WHITE BLOOD CELL COUNT (BEAKER) (test eoui=859) 10.5 K/ L 3.5-10.5 RED BLOOD CELL COUNT (BEAKER) (test sdfq=481) 2.99 M/ L 3.93-5.22 HEMOGLOBIN (BEAKER) (test zuiw=078) 8.7 GM/DL 11.2-15.7 HEMATOCRIT (BEAKER) (test byek=300) 26.8 % 34.1-44.9 MEAN CORPUSCULAR VOLUME (BEAKER) (test gsge=981) 89.6 fL 79.4-94.8 MEAN CORPUSCULAR HEMOGLOBIN (BEAKER) (test 29.1 pg 25.6-32.2 dfqn=140) MEAN CORPUSCULAR HEMOGLOBIN CONC (BEAKER) (test 32.5 GM/DL 32.2-35.5 pnkc=051) RED CELL DISTRIBUTION WIDTH (BEAKER) (test 16.5 % 11.7-14.4 qrtr=033) PLATELET COUNT (BEAKER) (test gvtt=674) 185 K/CU MM 150-450 MEAN PLATELET VOLUME (BEAKER) (test wcvf=665) 12.2 fL 9.4-12.3 NUCLEATED RED BLOOD CELLS (BEAKER) (test 0 /100 WBC 0-0 snsz=657) NEUTROPHILS RELATIVE PERCENT (BEAKER) (test 80 % qnam=808) LYMPHOCYTES RELATIVE PERCENT (BEAKER) (test 9 % wotm=562) MONOCYTES RELATIVE PERCENT (BEAKER) (test 10 % hrtd=257) EOSINOPHILS RELATIVE PERCENT (BEAKER) (test 1 % xvkr=179) BASOPHILS RELATIVE PERCENT (BEAKER) (test 0 % ligd=730) NEUTROPHILS ABSOLUTE COUNT (BEAKER) (test 8.39 K/ L 1.56-6.13 yjpo=098) LYMPHOCYTES ABSOLUTE COUNT (BEAKER) (test 0.94 K/ L 1.18-3.74 zjdu=277) MONOCYTES ABSOLUTE COUNT (BEAKER) (test 0.99 K/ L 0.24-0.36 dljs=972) EOSINOPHILS ABSOLUTE COUNT (BEAKER) (test 0.05 K/ L 0.04-0.36 wmfg=385) BASOPHILS ABSOLUTE COUNT (BEAKER) (test 0.03 K/ L 0.01-0.08 sskb=177) IMMATURE GRANULOCYTES-RELATIVE PERCENT (BEAKER) 1 % 0-1 (test scim=3177) CT, [id number] 03:51:00Reason for exam:->recurrent no GI loss anemia [...] Verified Date/Time: 04/28/2018 03:51:18 Reading Location : [address] Reading Room POCT-GLUCOSE [id number] 20:43:00 Test Item Value Reference Range Comments POC-GLUCOSE METER (BEAKER) 92 mg/dL 70-110 TESTED AT [address] (test rcig=5389) [place] [id number] POCT-GLUCOSE [id number] 17:35:00 Test Item Value Reference Range Comments POC-GLUCOSE METER (BEAKER) 195 mg/dL 70-110 TESTED AT [address] (test cvqz=2670) [place] [address] PROTEIN ELECTROPHORESIS, [id number] 12:33:00 Test Item Value Reference Range Comments ALBUMIN FRACTION (BEAKER) 2.7 g/dL 3.5-5.5 (test ajof=699) ALPHA 1 FRACTION (BEAKER) 0.4 g/dL 0.2-0.4 (test jdwc=250) ALPHA 2 FRACTION (BEAKER) 1.1 g/dL 0.5-0.9 (test cahk=420) BETA FRACTION (BEAKER) (test 1.0 g/dL 0.6-1.1 ksvr=803) GAMMA GLOBULIN FRACTION 1.2 g/dL 0.7-1.7 (BEAKER) (test gufs=836) INTERPRETATION-119 (BEAKER) Pattern suggestive of renal (test ylbh=2356) protein loss coupled with acute and chronic inflammation. No monoclonal bands detected. [id number] (BEAKER) Gina Meredith MD (test txvt=0879) (electronic signature) PROTEIN TOTAL SERUM, SPEP 6.4 gm/dL 6.0-8.3 (BEAKER) (test gvsh=0456) POCT-GLUCOSE [id number] 11:28:00 Test Item Value Reference Range Comments POC-GLUCOSE METER (BEAKER) 224 mg/dL 70-110 TESTED AT [address] (test uyui=4460) [place] [id number] POCT-GLUCOSE [id number] 09:01:00 Test Item Value Reference Range Comments POC-GLUCOSE METER (BEAKER) 203 mg/dL 70-[address] [facility] [address] (test wngd=9106) [facility] [id number] BASIC METABOLIC [id number] 07:26:00 Test Item Value Reference Range Comments SODIUM (BEAKER) (test 132 meq/L 136-145 rjls=277) POTASSIUM (BEAKER) (test 3.9 meq/L 3.5-5.1 gnxq=681) CHLORIDE (BEAKER) (test 103 meq/L 98-107 vfoy=876) CO2 (BEAKER) (test 19 meq/L 22-29 kmol=318) BLOOD UREA NITROGEN 49 mg/dL 7-21 (BEAKER) (test gxyp=158) CREATININE (BEAKER) (test 1.86 mg/dL 0.57-1.25 mmlv=590) GLUCOSE RANDOM (BEAKER) 204 mg/dL 70-105 (test uapv=732) CALCIUM (BEAKER) (test 8.4 mg/dL 8.4-10.2 qoee=769) EGFR (BEAKER) (test 27 mL/min/1.73 sq m ESTIMATED GFR IS NOT maym=0886) ACCURATE CREATININE CLEARANCE IN PREDICTING GLOMERULAR FILTRATION RATE. ESTIMATED GFR IS NOT APPLICABLE FOR DIALYSIS PATIENTS. CBC W/PLT COUNT & AUTO [id number] 07:11:00 Test Item Value Reference Range Comments WHITE BLOOD CELL COUNT (BEAKER) (test tyum=504) 9.3 K/ L 3.5-10.5 RED BLOOD CELL COUNT (BEAKER) (test mrsi=703) 2.86 M/ L 3.93-5.22 HEMOGLOBIN (BEAKER) (test sjoh=542) 8.3 GM/DL 11.2-15.7 HEMATOCRIT (BEAKER) (test fuug=540) 25.8 % 34.1-44.9 MEAN CORPUSCULAR VOLUME (BEAKER) (test odpf=500) 90.2 fL 79.4-94.8 MEAN CORPUSCULAR HEMOGLOBIN (BEAKER) (test 29.0 pg 25.6-32.2 xbsg=934) MEAN CORPUSCULAR HEMOGLOBIN CONC (BEAKER) (test 32.2 GM/DL 32.2-35.5 ugmt=037) RED CELL DISTRIBUTION WIDTH (BEAKER) (test 16.8 % 11.7-14.4 mjwe=971) PLATELET COUNT (BEAKER) (test jbnc=961) 191 K/CU MM 150-450 MEAN PLATELET VOLUME (BEAKER) (test mcap=697) 11.8 fL 9.4-12.3 NUCLEATED RED BLOOD CELLS (BEAKER) (test 0 /100 WBC 0-0 atgp=625) NEUTROPHILS RELATIVE PERCENT (BEAKER) (test 77 % rptv=190) LYMPHOCYTES RELATIVE PERCENT (BEAKER) (test 11 % kiec=780) MONOCYTES RELATIVE PERCENT (BEAKER) (test 10 % vcjc=686) EOSINOPHILS RELATIVE PERCENT (BEAKER) (test 0 % sqfr=663) BASOPHILS RELATIVE PERCENT (BEAKER) (test 0 % uaud=854) NEUTROPHILS ABSOLUTE COUNT (BEAKER) (test 7.20 K/ L 1.56-6.13 nqna=295) LYMPHOCYTES ABSOLUTE COUNT (BEAKER) (test 1.05 K/ L 1.18-3.74 talg=401) MONOCYTES ABSOLUTE COUNT (BEAKER) (test 0.92 K/ L 0.24-0.36 btmc=910) EOSINOPHILS ABSOLUTE COUNT (BEAKER) (test 0.03 K/ L 0.04-0.36 cuoi=050) BASOPHILS ABSOLUTE COUNT (BEAKER) (test 0.03 K/ L 0.01-0.08 hzct=470) IMMATURE GRANULOCYTES-RELATIVE PERCENT (BEAKER) 1 % 0-1 (test zkee=9219) POCT-GLUCOSE [id number] 20:45:00 Test Item Value Reference Range Comments POC-GLUCOSE METER (BEAKER) 72 mg/dL 70-110 TESTED AT [address] (test saxl=7715) [place] [id number] POCT-GLUCOSE [id number] 18:17:00 Test Item Value Reference Range Comments POC-GLUCOSE METER (BEAKER) 140 mg/dL 70-110 TESTED AT [address] (test ilkf=1403) [place] [address] POCT-GLUCOSE [id number] 14:42:00 Test Item Value Reference Range Comments POC-GLUCOSE METER (BEAKER) 104 mg/dL 70-110 TESTED AT [address] (test qdkp=3521) [place] [address] POCT-GLUCOSE [id number] 10:54:00 Test Item Value Reference Range Comments POC-GLUCOSE METER (BEAKER) 93 mg/dL 70-110 TESTED AT [place] [address] [facility] (test bevl=5389) [facility] [address] POCT-GLUCOSE [id number] 08:06:00 Test Item Value Reference Range Comments POC-GLUCOSE METER (BEAKER) 136 mg/dL 70-[address] [facility] [address] [facility] (test lzss=0572) [facility] [address] BASIC METABOLIC [id number] 07:34:00 Test Item Value Reference Range Comments SODIUM (BEAKER) (test 133 meq/L 136-145 hncn=648) POTASSIUM (BEAKER) (test 3.8 meq/L 3.5-5.1 diix=401) CHLORIDE (BEAKER) (test 105 meq/L 98-107 mxbu=735) CO2 (BEAKER) (test 20 meq/L 22-29 rwbw=407) BLOOD UREA NITROGEN 47 mg/dL 7-21 (BEAKER) (test exjd=226) CREATININE (BEAKER) (test 1.64 mg/dL 0.57-1.25 ebjb=852) GLUCOSE RANDOM (BEAKER) 111 mg/dL 70-105 (test ihdw=593) CALCIUM (BEAKER) (test 8.9 mg/dL 8.4-10.2 sdwu=477) EGFR (BEAKER) (test 31 mL/min/1.73 sq m ESTIMATED GFR IS NOT fkfi=4379) ACCURATE CREATININE CLEARANCE IN PREDICTING GLOMERULAR FILTRATION RATE. ESTIMATED GFR IS NOT APPLICABLE FOR DIALYSIS PATIENTS. CBC W/PLT COUNT & AUTO [id number] 06:19:00 Test Item Value Reference Range Comments WHITE BLOOD CELL COUNT (BEAKER) (test trfn=279) 7.7 K/ L 3.5-10.5 RED BLOOD CELL COUNT (BEAKER) (test kyvb=583) 2.93 M/ L 3.93-5.22 HEMOGLOBIN (BEAKER) (test lcuv=774) 8.8 GM/DL 11.2-15.7 HEMATOCRIT (BEAKER) (test rkns=625) 26.4 % 34.1-44.9 MEAN CORPUSCULAR VOLUME (BEAKER) (test kktb=974) 90.1 fL 79.4-94.8 MEAN CORPUSCULAR HEMOGLOBIN (BEAKER) (test 30.0 pg 25.6-32.2 rdoq=301) MEAN CORPUSCULAR HEMOGLOBIN CONC (BEAKER) (test 33.3 GM/DL 32.2-35.5 dggy=748) RED CELL DISTRIBUTION WIDTH (BEAKER) (test 16.9 % 11.7-14.4 cenm=549) PLATELET COUNT (BEAKER) (test wink=067) 197 K/CU MM 150-450 MEAN PLATELET VOLUME (BEAKER) (test haxc=336) 11.8 fL 9.4-12.3 NUCLEATED RED BLOOD CELLS (BEAKER) (test 0 /100 WBC 0-0 uwdl=448) NEUTROPHILS RELATIVE PERCENT (BEAKER) (test 73 % zjut=592) LYMPHOCYTES RELATIVE PERCENT (BEAKER) (test 13 % llcf=860) MONOCYTES RELATIVE PERCENT (BEAKER) (test 12 % ajqf=206) EOSINOPHILS RELATIVE PERCENT (BEAKER) (test 1 % fini=124) BASOPHILS RELATIVE PERCENT (BEAKER) (test 0 % jwjr=742) NEUTROPHILS ABSOLUTE COUNT (BEAKER) (test 5.64 K/ L 1.56-6.13 xlgp=366) LYMPHOCYTES ABSOLUTE COUNT (BEAKER) (test 0.99 K/ L 1.18-3.74 kcyh=336) MONOCYTES ABSOLUTE COUNT (BEAKER) (test 0.93 K/ L 0.24-0.36 hpox=107) EOSINOPHILS ABSOLUTE COUNT (BEAKER) (test 0.08 K/ L 0.04-0.36 okeq=400) BASOPHILS ABSOLUTE COUNT (BEAKER) (test 0.02 K/ L 0.01-0.08 clyu=313) IMMATURE GRANULOCYTES-RELATIVE PERCENT (BEAKER) 1 % 0-1 (test erpc=6462) POCT-GLUCOSE [id number] 22:25:00 Test Item Value Reference Range Comments POC-GLUCOSE METER (BEAKER) 272 mg/dL 70-110 TESTED AT [address] (test fnum=6512) [facility] [address] POCT-GLUCOSE [id number] 22:25:00 Test Item Value Reference Range Comments POC-GLUCOSE METER (BEAKER) 232 mg/dL 70-110 TESTED AT [address] (test kask=7571) [facility] [address] POCT-GLUCOSE [id number] 16:09:00 Test Item Value Reference Range Comments POC-GLUCOSE METER (BEAKER) 77 mg/dL 70-110 TESTED AT [address] (test xvqr=5903) [place] [id number] POCT-GLUCOSE [id number] 11:33:00 Test Item Value Reference Range Comments POC-GLUCOSE METER (BEAKER) 154 mg/dL 70-110 TESTED AT [address] (test cipi=3372) [place] [id number] VRE [id number] 09:16:00 Test Item Value Reference Range Comments CULTURE (BEAKER) (test No vancomycin-resistant cqwz=4346) Enterococcus isolated POCT-GLUCOSE [id number] 07:47:00 Test Item Value Reference Range Comments POC-GLUCOSE METER (BEAKER) 130 mg/dL 70-110 TESTED AT [address] (test mtmk=7468) [place] [address] BASIC METABOLIC [id number] 05:38:00 Test Item Value Reference Range Comments SODIUM (BEAKER) (test 133 meq/L 136-145 nnkx=030) POTASSIUM (BEAKER) (test 4.1 meq/L 3.5-5.1 bjxt=182) CHLORIDE (BEAKER) (test 105 meq/L 98-107 iwka=534) CO2 (BEAKER) (test 17 meq/L 22-29 uimx=876) BLOOD UREA NITROGEN 56 mg/dL 7-21 (BEAKER) (test svdo=357) CREATININE (BEAKER) (test 1.68 mg/dL 0.57-1.25 wbph=236) GLUCOSE RANDOM (BEAKER) 115 mg/dL 70-105 (test hkdi=797) CALCIUM (BEAKER) (test 8.7 mg/dL 8.4-10.2 bmks=756) EGFR (BEAKER) (test 30 mL/min/1.73 sq m ESTIMATED GFR IS NOT kfcy=9338) ACCURATE CREATININE CLEARANCE IN PREDICTING GLOMERULAR FILTRATION RATE. ESTIMATED GFR IS NOT APPLICABLE FOR DIALYSIS PATIENTS. CBC W/PLT COUNT & AUTO [id number] 05:19:00 Test Item Value Reference Range Comments WHITE BLOOD CELL COUNT (BEAKER) (test drlk=625) 9.8 K/ L 3.5-10.5 RED BLOOD CELL COUNT (BEAKER) (test qvaw=174) 3.09 M/ L 3.93-5.22 HEMOGLOBIN (BEAKER) (test qcip=672) 9.0 GM/DL 11.2-15.7 HEMATOCRIT (BEAKER) (test wnio=011) 27.6 % 34.1-44.9 MEAN CORPUSCULAR VOLUME (BEAKER) (test apfc=730) 89.3 fL 79.4-94.8 MEAN CORPUSCULAR HEMOGLOBIN (BEAKER) (test 29.1 pg 25.6-32.2 fdua=046) MEAN CORPUSCULAR HEMOGLOBIN CONC (BEAKER) (test 32.6 GM/DL 32.2-35.5 vjdn=627) RED CELL DISTRIBUTION WIDTH (BEAKER) (test 17.5 % 11.7-14.4 guqi=769) PLATELET COUNT (BEAKER) (test iihc=231) 226 K/CU MM 150-450 MEAN PLATELET VOLUME (BEAKER) (test owgw=673) 12.3 fL 9.4-12.3 NUCLEATED RED BLOOD CELLS (BEAKER) (test 0 /100 WBC 0-0 lqqb=626) NEUTROPHILS RELATIVE PERCENT (BEAKER) (test 81 % evoc=745) LYMPHOCYTES RELATIVE PERCENT (BEAKER) (test 8 % rqli=355) MONOCYTES RELATIVE PERCENT (BEAKER) (test 10 % ntur=274) EOSINOPHILS RELATIVE PERCENT (BEAKER) (test 1 % joqc=151) BASOPHILS RELATIVE PERCENT (BEAKER) (test 0 % wmun=613) NEUTROPHILS ABSOLUTE COUNT (BEAKER) (test 7.89 K/ L 1.56-6.13 nuwd=835) LYMPHOCYTES ABSOLUTE COUNT (BEAKER) (test 0.73 K/ L 1.18-3.74 ptiq=179) MONOCYTES ABSOLUTE COUNT (BEAKER) (test 0.93 K/ L 0.24-0.36 jnwd=302) EOSINOPHILS ABSOLUTE COUNT (BEAKER) (test 0.13 K/ L 0.04-0.36 klju=163) BASOPHILS ABSOLUTE COUNT (BEAKER) (test 0.03 K/ L 0.01-0.08 clrb=557) IMMATURE GRANULOCYTES-RELATIVE PERCENT (BEAKER) 1 % 0-1 (test gbim=5296) EOSINOPHIL SMEAR, [id number] 04:30:00 Test Item Value Reference Range Comments EOSINOPHIL SMEAR, URINE (BEAKER) (test No EOS seen No EOS seen iswh=5561) CREATININE, RANDOM [id number] 00:00:00 Test Item Value Reference Range Comments CREATININE URINE (BEAKER) (test cplk=781) 29.1 mg/dL Reference Range: No NormalsPROTEIN, RANDOM [id number] 00:00:00 Test Item Value Reference Range Comments PROTEIN, URINE (BEAKER) (test waek=8070) 53 mg/dL 0-14 SODIUM, RANDOM [id number] 00:00:00 Test Item Value Reference Range Comments SODIUM URINE (BEAKER) (test dxcm=142) 66 meq/L Reference Range: No NormalsURINALYSIS W/ [id number] 23:53:00 Test Item Value Reference Range Comments COLOR (BEAKER) (test yxsb=516) Yellow CLARITY (BEAKER) (test halx=173) Clear SPECIFIC GRAVITY UA (BEAKER) (test ijda=381) 1.008 1.001-1.035 PH UA (BEAKER) (test eljk=529) 5.0 5.0-8.0 PROTEIN UA (BEAKER) (test guox=575) 50 mg/dL Negative GLUCOSE UA (BEAKER) (test umoa=745) Negative Negative KETONES UA (BEAKER) (test nusn=136) Negative Negative BILIRUBIN UA (BEAKER) (test ywfo=527) Negative Negative BLOOD UA (BEAKER) (test lase=840) Negative Negative NITRITE UA (BEAKER) (test gpwg=324) Negative Negative LEUKOCYTE ESTERASE UA (BEAKER) (test irmb=470) Negative Negative UROBILINOGEN UA (BEAKER) (test vklf=469) 0.2 mg/dL 0.2-1.0 RBC UA (BEAKER) (test pdvd=531) < /HPF WBC UA (BEAKER) (test fntj=300) 6 /HPF BACTERIA (BEAKER) (test zthn=679) Rare MUCUS (BEAKER) (test bhff=7632) Rare SQUAMOUS EPITHELIAL (BEAKER) (test suxu=941) < /HPF AMORPHOUS CRYSTALS (BEAKER) (test yuhg=3528) Rare SOURCE(BEAKER) (test oepw=0655) Urine, Voided POCT-GLUCOSE [id number] 21:26:00 Test Item Value Reference Range Comments POC-GLUCOSE METER (BEAKER) 109 mg/dL 70-[address] [facility] [address] [facility] (test lptt=6386) [facility] [address] POCT-GLUCOSE [id number] 16:36:00 Test Item Value Reference Range Comments POC-GLUCOSE METER (BEAKER) 152 mg/dL 70-110 TESTED AT [address] (test bfco=1965) [place] [address] [id number] 15:42:00 Test Item Value Reference Range Comments FERRITIN (BEAKER) (test wiqm=278) 580 ng/mL 5-275 IRON, TIBC, % SAT. (WITHOUT FERRITIN)[id number] 15:21:00 Test Item Value Reference Range Comments IRON (BEAKER) (test bcyi=487) 19.0 ug/dL 40.0-160.0 TOTAL IRON BINDING CAPACITY (BEAKER) (test 154 ug/dL 250-450 vfdu=690) IRON % SATURATION (2) (BEAKER) (test luhu=7125) 12 % 20-55 LACTATE DEHYDROGENASE (LDH)2018-04-24 15:19:00 Test Item Value Reference Range Comments LACTATE DEHYDROGENASE (BEAKER) (test rctp=956) 204 U/L 125-220 PERIPHERAL BLOOD SMEAR - HOLD [id number] 15:17:00 Test Item Value Reference Range Comments PERIPHERAL SMEAR SAVE (BEAKER) (test pxla=0472) saved RETICULOCYTE [id number] 15:04:00 Test Item Value Reference Range Comments RETICULOCYTE COUNT PCT (AKER) (test ozms=590) 1.7 % 0.5-1.7 POCT-GLUCOSE [id number] 12:07:00 Test Item Value Reference Range Comments POC-GLUCOSE METER (AKER) 181 mg/dL 70-110 TESTED AT [address] (test hoiq=9832) [place] [address] WOUND CULTURE + GRAM [id number] 10:26:00 Test Item Value Reference Range Comments CULTURE (BEAKER) (test MORGANELLA MORGANII 1+ Morganella morganii ggzn=8808) Amikacin (test code=1) Ampicillin + Sulbactam (test code=6) Aztreonam (test code=32) Cefepime (test code=51) Cefoxitin (test code=68) Ceftazidime (test code=27) Ceftriaxone (test code=52) Ertapenem (test code=38) Gentamicin (test code=18) Levofloxacin (test code=22) Meropenem (test code=34) Nitrofurantoin (test code=23) Piperacillin + Tazobactam (test code=29) Tetracycline (test code=2) Tobramycin (test code=25) Trimethoprim + Sulfamethoxazole (test code=47) CULTURE (BEAKER) (test METHICILLIN RESISTANT 4+ Methicillin spzy=3654) STAPHYLOCOCCUS AUREUS resistant Staphylococcus aureus Clindamycin (test code=10) Erythromycin (test code=4) Linezolid (test code=40) Nitrofurantoin (test code=23) Oxacillin (test code=14) Rifampin (test code=43) Tetracycline (test code=2) Trimethoprim + Sulfamethoxazole (test code=47) Vancomycin (test code=13) GRAM STAIN RESULT <1+ WBCs (BEAKER) (test ajet=0062) GRAM STAIN RESULT 2+ gram negative rods (BEAKER) (test lrlb=864645) GRAM STAIN RESULT <1+ gram positive rods (BEAKER) (test nqzd=351205) 4+ Skin floraPOCT-GLUCOSE [id number] 07:47:00 Test Item Value Reference Range Comments POC-GLUCOSE METER (BEAKER) 128 mg/dL 70-[address] [facility] [address] [facility] (test vfsw=3757) [facility] [address] [id number] 04:27:00 Test Item Value Reference Range Comments PHOSPHORUS (BEAKER) (test ozkw=082) 3.6 mg/dL 2.3-4.7 [id number] 04:27:00 Test Item Value Reference Range Comments MAGNESIUM (BEAKER) (test svdt=501) 1.7 mg/dL 1.6-2.6 COMPREHENSIVE METABOLIC [id number] 04:27:00 Test Item Value Reference Range Comments TOTAL PROTEIN (BEAKER) 6.4 gm/dL 6.0-8.3 (test yewi=923) ALBUMIN (BEAKER) (test 3.1 g/dL 3.5-5.0 jnoj=9303) ALKALINE PHOSPHATASE 182 U/L 40-150 (BEAKER) (test xupe=204) BILIRUBIN TOTAL (BEAKER) 0.5 mg/dL 0.2-1.2 (test vzig=136) SODIUM (BEAKER) (test 133 meq/L 136-145 qfon=306) POTASSIUM (BEAKER) (test 4.5 meq/L 3.5-5.1 gysd=295) CHLORIDE (BEAKER) (test 106 meq/L 98-107 kxyg=443) CO2 (BEAKER) (test 18 meq/L 22-29 kkpz=534) BLOOD UREA NITROGEN 53 mg/dL 7-21 (BEAKER) (test tvhe=886) CREATININE (BEAKER) (test 1.54 mg/dL 0.57-1.25 fdjb=543) GLUCOSE RANDOM (BEAKER) 128 mg/dL 70-105 (test kluj=715) CALCIUM (BEAKER) (test 8.8 mg/dL 8.4-10.2 ohrk=143) AST (SGOT) (BEAKER) (test 12 U/L 5-34 xagt=947) ALT (SGPT) (BEAKER) (test 31 U/L 6-55 fmrj=409) EGFR (BEAKER) (test 34 mL/min/1.73 sq m ESTIMATED GFR IS NOT tctj=4535) ACCURATE CREATININE CLEARANCE IN PREDICTING GLOMERULAR FILTRATION RATE. ESTIMATED GFR IS NOT APPLICABLE FOR DIALYSIS PATIENTS. CALCIUM, [id number] 04:21:00 Test Item Value Reference Range Comments CALCIUM IONIZED (BEAKER) (test nxyh=726) 1.09 mmol/L 1.12-1.27 PH, BLOOD (BEAKER) (test bung=2987) 7.43 CBC W/PLT COUNT & AUTO [id number] 04:02:00 Test Item Value Reference Range Comments WHITE BLOOD CELL COUNT (BEAKER) (test waix=001) 10.1 K/ L 3.5-10.5 RED BLOOD CELL COUNT (BEAKER) (test mghn=054) 2.34 M/ L 3.93-5.22 HEMOGLOBIN (BEAKER) (test frtg=608) 7.0 GM/DL 11.2-15.7 HEMATOCRIT (BEAKER) (test qiwo=635) 21.9 % 34.1-44.9 MEAN CORPUSCULAR VOLUME (BEAKER) (test pqml=573) 93.6 fL 79.4-94.8 MEAN CORPUSCULAR HEMOGLOBIN (BEAKER) (test 29.9 pg 25.6-32.2 eipu=557) MEAN CORPUSCULAR HEMOGLOBIN CONC (BEAKER) (test 32.0 GM/DL 32.2-35.5 xfjs=636) RED CELL DISTRIBUTION WIDTH (BEAKER) (test 16.9 % 11.7-14.4 retq=808) PLATELET COUNT (BEAKER) (test ajub=924) 192 K/CU MM 150-450 MEAN PLATELET VOLUME (BEAKER) (test bjnp=506) 12.3 fL 9.4-12.3 NUCLEATED RED BLOOD CELLS (BEAKER) (test 0 /100 WBC 0-0 ruqd=714) NEUTROPHILS RELATIVE PERCENT (BEAKER) (test 78 % gcdk=802) LYMPHOCYTES RELATIVE PERCENT (BEAKER) (test 12 % kwzi=067) MONOCYTES RELATIVE PERCENT (BEAKER) (test 9 % iisv=223) EOSINOPHILS RELATIVE PERCENT (BEAKER) (test 1 % rbpj=101) BASOPHILS RELATIVE PERCENT (BEAKER) (test 0 % alcs=456) NEUTROPHILS ABSOLUTE COUNT (BEAKER) (test 7.91 K/ L 1.56-6.13 xpal=227) LYMPHOCYTES ABSOLUTE COUNT (BEAKER) (test 1.17 K/ L 1.18-3.74 vuva=281) MONOCYTES ABSOLUTE COUNT (BEAKER) (test 0.89 K/ L 0.24-0.36 tbmf=981) EOSINOPHILS ABSOLUTE COUNT (BEAKER) (test 0.07 K/ L 0.04-0.36 bvxn=766) BASOPHILS ABSOLUTE COUNT (BEAKER) (test 0.03 K/ L 0.01-0.08 ajtf=277) IMMATURE GRANULOCYTES-RELATIVE PERCENT (BEAKER) 1 % 0-1 (test byuf=5938) POCT-GLUCOSE [id number] 22:21:00 Test Item Value Reference Range Comments POC-GLUCOSE METER (BEAKER) 100 mg/dL 70-110 TESTED AT [address] (test espw=1685) [facility] [address] POCT-GLUCOSE [id number] 16:43:00 Test Item Value Reference Range Comments POC-GLUCOSE METER (BEAKER) 200 mg/dL 70-110 TESTED AT [address] (test wpng=8335) [facility] [address] POCT-GLUCOSE [id number] 12:27:00 Test Item Value Reference Range Comments POC-GLUCOSE METER (BEAKER) 311 mg/dL 70-110 TESTED AT [address] (test orkl=8669) [facility] [address] POCT-GLUCOSE [id number] 09:00:00 Test Item Value Reference Range Comments POC-GLUCOSE METER (BEAKER) 132 mg/dL 70-[address] [facility] [address] (test eoed=2122) [facility] [address] WOUND CULTURE + GRAM [id number] 07:52:00 Test Item Value Reference Range Comments CULTURE (BEAKER) (test ENTEROCOCCUS SPECIES 2+ Enterococcus species evxd=8362) Ampicillin (test code=26) Linezolid (test code=40) Tetracycline (test code=2) Vancomycin (test code=13) GRAM STAIN RESULT 2+ WBCs (BEAKER) (test froy=0809) GRAM STAIN RESULT No organisms seen (BEAKER) (test kdjv=546427) GRAM STAIN RESULT No organisms seen (BEAKER) (test zdtl=105029) Organism(s) under evaluationBASIC METABOLIC [id number] 06:53:00 Test Item Value Reference Range Comments SODIUM (BEAKER) (test 136 meq/L 136-145 mbwd=575) POTASSIUM (BEAKER) (test 4.5 meq/L 3.5-5.1 bbdb=900) CHLORIDE (BEAKER) (test 108 meq/L 98-107 yias=965) CO2 (BEAKER) (test 18 meq/L 22-29 kwgl=712) BLOOD UREA NITROGEN 55 mg/dL 7-21 (BEAKER) (test prpe=432) CREATININE (BEAKER) (test 1.58 mg/dL 0.57-1.25 cbjb=666) GLUCOSE RANDOM (BEAKER) 109 mg/dL 70-105 (test xvsa=719) CALCIUM (BEAKER) (test 8.7 mg/dL 8.4-10.2 rvlr=515) EGFR (BEAKER) (test 33 mL/min/1.73 sq m ESTIMATED GFR IS NOT frqz=4822) ACCURATE CREATININE CLEARANCE IN PREDICTING GLOMERULAR FILTRATION RATE. ESTIMATED GFR IS NOT APPLICABLE FOR DIALYSIS PATIENTS. CBC W/PLT COUNT & AUTO [id number] 06:46:00 Test Item Value Reference Range Comments WHITE BLOOD CELL COUNT (BEAKER) (test fbsu=949) 11.5 K/ L 3.5-10.5 RED BLOOD CELL COUNT (BEAKER) (test juwe=297) 2.57 M/ L 3.93-5.22 HEMOGLOBIN (BEAKER) (test mgbg=599) 7.6 GM/DL 11.2-15.7 HEMATOCRIT (BEAKER) (test rrqk=735) 23.9 % 34.1-44.9 MEAN CORPUSCULAR VOLUME (BEAKER) (test evom=550) 93.0 fL 79.4-94.8 MEAN CORPUSCULAR HEMOGLOBIN (BEAKER) (test 29.6 pg 25.6-32.2 lyst=843) MEAN CORPUSCULAR HEMOGLOBIN CONC (BEAKER) (test 31.8 GM/DL 32.2-35.5 kskl=929) RED CELL DISTRIBUTION WIDTH (BEAKER) (test 17.2 % 11.7-14.4 aoic=297) PLATELET COUNT (BEAKER) (test jrco=175) 193 K/CU MM 150-450 MEAN PLATELET VOLUME (BEAKER) (test bjnr=776) 12.3 fL 9.4-12.3 NUCLEATED RED BLOOD CELLS (BEAKER) (test 0 /100 WBC 0-0 tszn=155) NEUTROPHILS RELATIVE PERCENT (BEAKER) (test 83 % asqk=231) LYMPHOCYTES RELATIVE PERCENT (BEAKER) (test 9 % dmtv=859) MONOCYTES RELATIVE PERCENT (BEAKER) (test 7 % ejcx=121) EOSINOPHILS RELATIVE PERCENT (BEAKER) (test 0 % sxgc=360) BASOPHILS RELATIVE PERCENT (BEAKER) (test 0 % wvfk=560) NEUTROPHILS ABSOLUTE COUNT (BEAKER) (test 9.57 K/ L 1.56-6.13 bxdc=241) LYMPHOCYTES ABSOLUTE COUNT (BEAKER) (test 0.98 K/ L 1.18-3.74 pcwa=366) MONOCYTES ABSOLUTE COUNT (BEAKER) (test 0.80 K/ L 0.24-0.36 jbgc=085) EOSINOPHILS ABSOLUTE COUNT (BEAKER) (test 0.05 K/ L 0.04-0.36 fmxz=136) BASOPHILS ABSOLUTE COUNT (BEAKER) (test 0.03 K/ L 0.01-0.08 olog=577) IMMATURE GRANULOCYTES-RELATIVE PERCENT (BEAKER) 0 % 0-1 (test duke=1909) POCT-GLUCOSE [id number] 18:24:00 Test Item Value Reference Range Comments POC-GLUCOSE METER (BEAKER) 206 mg/dL 70-110 TESTED AT [address] (test ivai=7458) [place] [id number] POCT-GLUCOSE [id number] 13:58:00 Test Item Value Reference Range Comments POC-GLUCOSE METER (BEAKER) 80 mg/dL 70-110 TESTED AT [address] (test rtnl=3130) [place] [id number] HEMOGLOBIN [id number] 13:25:00 Test Item Value Reference Range Comments HEMOGLOBIN A1C (BEAKER) (test dfkg=112) 7.2 % 4.3-6.1 POCT-GLUCOSE [id number] 12:34:00 Test Item Value Reference Range Comments POC-GLUCOSE METER (BEAKER) 119 mg/dL 70-110 TESTED AT [address] (test kysn=0400) [place] [id number] TSH/FREE T4 IF [id number] 12:08:00 Test Item Value Reference Range Comments THYROID STIMULATING HORMONE (BEAKER) (test 1.04 uIU/mL 0.35-4.94 sggl=918) POCT-GLUCOSE [id number] 08:16:00 Test Item Value Reference Range Comments POC-GLUCOSE METER (BEAKER) 153 mg/dL 70-110 TESTED AT [address] (test wwcb=6215) [place] [id number] CBC W/PLT COUNT & AUTO [id number] 07:29:00 Test Item Value Reference Range Comments WHITE BLOOD CELL COUNT (BEAKER) (test flao=382) 10.8 K/ L 3.5-10.5 RED BLOOD CELL COUNT (BEAKER) (test yyae=112) 2.66 M/ L 3.93-5.22 HEMOGLOBIN (BEAKER) (test tsij=703) 7.9 GM/DL 11.2-15.7 HEMATOCRIT (BEAKER) (test jgrd=899) 24.7 % 34.1-44.9 MEAN CORPUSCULAR VOLUME (BEAKER) (test izii=843) 92.9 fL 79.4-94.8 MEAN CORPUSCULAR HEMOGLOBIN (BEAKER) (test 29.7 pg 25.6-32.2 hmcg=865) MEAN CORPUSCULAR HEMOGLOBIN CONC (BEAKER) (test 32.0 GM/DL 32.2-35.5 dzzh=734) RED CELL DISTRIBUTION WIDTH (BEAKER) (test 17.7 % 11.7-14.4 zyry=617) PLATELET COUNT (BEAKER) (test dyuo=428) 217 K/CU MM 150-450 MEAN PLATELET VOLUME (BEAKER) (test dwzk=692) 12.6 fL 9.4-12.3 NUCLEATED RED BLOOD CELLS (BEAKER) (test 0 /100 WBC 0-0 adfe=139) NEUTROPHILS RELATIVE PERCENT (BEAKER) (test 79 % shfm=918) LYMPHOCYTES RELATIVE PERCENT (BEAKER) (test 8 % uipt=775) MONOCYTES RELATIVE PERCENT (BEAKER) (test 9 % wpqk=115) EOSINOPHILS RELATIVE PERCENT (BEAKER) (test 3 % dwuu=578) BASOPHILS RELATIVE PERCENT (BEAKER) (test 1 % iuxs=816) NEUTROPHILS ABSOLUTE COUNT (BEAKER) (test 8.52 K/ L 1.56-6.13 vpyy=353) LYMPHOCYTES ABSOLUTE COUNT (BEAKER) (test 0.90 K/ L 1.18-3.74 wtyu=924) MONOCYTES ABSOLUTE COUNT (BEAKER) (test 0.92 K/ L 0.24-0.36 wwpr=600) EOSINOPHILS ABSOLUTE COUNT (BEAKER) (test 0.31 K/ L 0.04-0.36 vwqq=819) BASOPHILS ABSOLUTE COUNT (BEAKER) (test 0.05 K/ L 0.01-0.08 jgvd=356) IMMATURE GRANULOCYTES-RELATIVE PERCENT (BEAKER) 1 % 0-1 (test hfrk=3422) [id number] 06:06:00 Test Item Value Reference Range Comments MAGNESIUM (BEAKER) (test qnrr=561) 1.8 mg/dL 1.6-2.6 BASIC METABOLIC [id number] 06:06:00 Test Item Value Reference Range Comments SODIUM (BEAKER) (test 135 meq/L 136-145 ival=318) POTASSIUM (BEAKER) (test 4.6 meq/L 3.5-5.1 jpai=917) CHLORIDE (BEAKER) (test 108 meq/L 98-107 qldr=070) CO2 (BEAKER) (test 18 meq/L 22-29 gxah=195) BLOOD UREA NITROGEN 55 mg/dL 7-21 (BEAKER) (test pyyl=014) CREATININE (BEAKER) (test 1.51 mg/dL 0.57-1.25 mcji=093) GLUCOSE RANDOM (BEAKER) 147 mg/dL 70-105 (test zyng=776) CALCIUM (BEAKER) (test 8.8 mg/dL 8.4-10.2 yasd=249) EGFR (BEAKER) (test 34 mL/min/1.73 sq m ESTIMATED GFR IS NOT auwo=4855) ACCURATE CREATININE CLEARANCE IN PREDICTING GLOMERULAR FILTRATION RATE. ESTIMATED GFR IS NOT APPLICABLE FOR DIALYSIS PATIENTS. HEPATIC FUNCTION [id number] 06:06:00 Test Item Value Reference Range Comments TOTAL PROTEIN (BEAKER) (test vsxd=147) 7.1 gm/dL 6.0-8.3 ALBUMIN (BEAKER) (test kisc=1345) 3.5 g/dL 3.5-5.0 BILIRUBIN TOTAL (BEAKER) (test hmuk=165) 0.4 mg/dL 0.2-1.2 BILIRUBIN DIRECT (BEAKER) (test diza=678) 0.3 mg/dL 0.1-0.5 ALKALINE PHOSPHATASE (BEAKER) (test when=225) 252 U/L 40-150 AST (SGOT) (BEAKER) (test wkxj=711) 25 U/L 5-34 ALT (SGPT) (BEAKER) (test slxs=500) 48 U/L 6-55 PROTHROMBIN [id number] 05:54:00 Test Item Value Reference Range Comments PROTIME (BEAKER) (test quqv=777) 16.1 seconds 11.7-14.7 INR (BEAKER) (test hnjp=113) 1.3 <=5.9 RECOMMENDED COUMADIN/WARFARIN INR THERAPY RANGESSTANDARD DOSE: 2.0 - 3.0 Includes: PROPHYLAXIS forvenous thrombosis, systemic embolization; TREATMENT for venous thrombosis and/or pulmonary embolus.HIGH RISK: Target INR is 2.5-3.5 for patients with mechanical heart valves.POCT-GLUCOSE [id number] 20:20:00 Test Item Value Reference Range Comments POC-GLUCOSE METER (BEAKER) 221 mg/dL 70-[address] [facility] [address] [facility] (test qovq=0121) [facility] [address] POCT-GLUCOSE [id number] 17:23:00 Test Item Value Reference Range Comments POC-GLUCOSE METER (BEAKER) 214 mg/dL 70-110 TESTED AT [address] (test zsjt=3016) [facility] [address] BASIC METABOLIC [id number] 14:09:00 Test Item Value Reference Range Comments SODIUM (BEAKER) (test 136 meq/L 136-145 ipmk=154) POTASSIUM (BEAKER) (test 5.1 meq/L 3.5-5.1 Specimen slightly vxgr=386) hemolyzed CHLORIDE (BEAKER) (test 108 meq/L 98-107 itst=471) CO2 (BEAKER) (test 18 meq/L 22-29 sinw=496) BLOOD UREA NITROGEN 61 mg/dL 7-21 (BEAKER) (test umxl=448) CREATININE (BEAKER) (test 1.71 mg/dL 0.57-1.25 Specimen slightly kdhb=021) hemolyzed GLUCOSE RANDOM (BEAKER) 214 mg/dL 70-105 (test yafk=138) CALCIUM (BEAKER) (test 9.0 mg/dL 8.4-10.2 gdhg=085) EGFR (BEAKER) (test 30 mL/min/1.73 sq m ESTIMATED GFR IS NOT uhub=6546) ACCURATE CREATININE CLEARANCE IN PREDICTING GLOMERULAR FILTRATION RATE. ESTIMATED GFR IS NOT APPLICABLE FOR DIALYSIS PATIENTS. CBC W/PLT COUNT & AUTO [id number] 14:05:00 Test Item Value Reference Range Comments WHITE BLOOD CELL COUNT (BEAKER) (test yqey=478) 8.4 K/ L 3.5-10.5 RED BLOOD CELL COUNT (BEAKER) (test ptes=246) 2.11 M/ L 3.93-5.22 HEMOGLOBIN (BEAKER) (test eydq=302) 6.4 GM/DL 11.2-15.7 HEMATOCRIT (BEAKER) (test fdnb=641) 20.0 % 34.1-44.9 MEAN CORPUSCULAR VOLUME (BEAKER) (test tmyf=107) 94.8 fL 79.4-94.8 MEAN CORPUSCULAR HEMOGLOBIN (BEAKER) (test 30.3 pg 25.6-32.2 jpim=392) MEAN CORPUSCULAR HEMOGLOBIN CONC (BEAKER) (test 32.0 GM/DL 32.2-35.5 vorq=304) RED CELL DISTRIBUTION WIDTH (BEAKER) (test 17.1 % 11.7-14.4 khjs=391) PLATELET COUNT (BEAKER) (test tixn=666) 204 K/CU MM 150-450 MEAN PLATELET VOLUME (BEAKER) (test hjrq=178) 12.5 fL 9.4-12.3 NUCLEATED RED BLOOD CELLS (BEAKER) (test 0 /100 WBC 0-0 ufcd=189) NEUTROPHILS RELATIVE PERCENT (BEAKER) (test 72 % dcjr=538) LYMPHOCYTES RELATIVE PERCENT (BEAKER) (test 15 % fpli=167) MONOCYTES RELATIVE PERCENT (BEAKER) (test 8 % hujy=078) EOSINOPHILS RELATIVE PERCENT (BEAKER) (test 4 % flon=642) BASOPHILS RELATIVE PERCENT (BEAKER) (test 1 % tnzx=040) NEUTROPHILS ABSOLUTE COUNT (BEAKER) (test 6.02 K/ L 1.56-6.13 ofgz=359) LYMPHOCYTES ABSOLUTE COUNT (BEAKER) (test 1.25 K/ L 1.18-3.74 okoy=415) MONOCYTES ABSOLUTE COUNT (BEAKER) (test 0.63 K/ L 0.24-0.36 thck=407) EOSINOPHILS ABSOLUTE COUNT (BEAKER) (test 0.31 K/ L 0.04-0.36 khkz=943) BASOPHILS ABSOLUTE COUNT (BEAKER) (test 0.04 K/ L 0.01-0.08 ihxk=309) IMMATURE GRANULOCYTES-RELATIVE PERCENT (BEAKER) 1 % 0-1 (test jota=0126) [id number] 14:05:00 Test Item Value Reference Range Comments PROTIME (BEAKER) (test uuss=317) 15.7 seconds 11.7-14.7 INR (BEAKER) (test skcg=686) 1.3 <=5.9 PARTIAL THROMBOPLASTIN TIME (BEAKER) (test 29.3 seconds 22.5-36.0 amsk=496) RECOMMENDED COUMADIN/WARFARIN INR THERAPY RANGESSTANDARD DOSE: 2.0 - 3.0 Includes: PROPHYLAXIS forvenous thrombosis, systemic embolization; TREATMENT for venous thrombosis and/or pulmonary embolus.HIGH RISK: Target INR is 2.5-3.5 for patients with mechanical heart valves.AFB CULTURE + [id number] 07:07:00 Test Item Value Reference Range Comments CULTURE (BEAKER) (test No acid-fast bacilli isolated ovlj=2924) in 42 days AFB SMEAR (BEAKER) (test No acid fast bacilli seen hrhu=555) AFB CULTURE + [id number] 07:07:00 Test Item Value Reference Range Comments CULTURE (BEAKER) (test No acid-fast bacilli isolated lvgr=3502) in 42 days AFB SMEAR (BEAKER) (test No acid fast bacilli seen juet=722) FUNGUS CULTURE + [id number] 07:38:00 Test Item Value Reference Range Comments CULTURE (BEAKER) (test No fungus isolated in 28 days pewt=5478) FUNGUS SMEAR (BEAKER) (test No fungi seen lskt=5431) FUNGUS CULTURE + [id number] 07:38:00 Test Item Value Reference Range Comments CULTURE (BEAKER) (test No fungus isolated in 28 days pmml=6008) FUNGUS SMEAR (BEAKER) (test No fungi seen eurl=7599) POCT-GLUCOSE [id number] 07:56:00 Test Item Value Reference Range Comments POC-GLUCOSE METER (BEAKER) 123 mg/dL 70-[address] [facility] [address] [place] [address] (test gdem=6202) [facility] [address] BASIC METABOLIC [id number] 07:11:00 Test Item Value Reference Range Comments SODIUM (BEAKER) (test 139 meq/L 136-145 gdpc=256) POTASSIUM (BEAKER) (test 4.3 meq/L 3.5-5.1 oews=791) CHLORIDE (BEAKER) (test 108 meq/L 98-107 czag=052) CO2 (BEAKER) (test 24 meq/L 22-29 fxwd=894) BLOOD UREA NITROGEN 35 mg/dL 7-21 (BEAKER) (test elfd=807) CREATININE (BEAKER) (test 2.32 mg/dL 0.57-1.25 jjtk=857) GLUCOSE RANDOM (BEAKER) 105 mg/dL 70-105 (test qmqc=390) CALCIUM (BEAKER) (test 9.1 mg/dL 8.4-10.2 tlaf=855) EGFR (BEAKER) (test 21 mL/min/1.73 sq m ESTIMATED GFR IS NOT irjm=2998) ACCURATE CREATININE CLEARANCE IN PREDICTING GLOMERULAR FILTRATION RATE. ESTIMATED GFR IS NOT APPLICABLE FOR DIALYSIS PATIENTS. [id number] 07:05:00 Test Item Value Reference Range Comments MAGNESIUM (BEAKER) (test kpeo=826) 1.6 mg/dL 1.6-2.6 POCT-GLUCOSE [id number] 23:30:00 Test Item Value Reference Range Comments POC-GLUCOSE METER (BEAKER) 129 mg/dL 70-110 TESTED AT [place] [id number] [facility] (test qvcm=9587) [facility] [address] POCT-GLUCOSE [id number] 17:02:00 Test Item Value Reference Range Comments POC-GLUCOSE METER (BEAKER) 157 mg/dL 70-110 TESTED AT [address] (test hhpe=7425) [place] [id number] POCT-GLUCOSE [id number] 08:01:00 Test Item Value Reference Range Comments POC-GLUCOSE METER (BEAKER) 126 mg/dL 70-110 TESTED AT [address] (test ibms=9057) [place] [id number] BASIC METABOLIC [id number] 07:31:00 Test Item Value Reference Range Comments SODIUM (BEAKER) (test 135 meq/L 136-145 rvnb=520) POTASSIUM (BEAKER) (test 4.7 meq/L 3.5-5.1 chtt=007) CHLORIDE (BEAKER) (test 106 meq/L 98-107 ytza=084) CO2 (BEAKER) (test 24 meq/L 22-29 hgre=209) BLOOD UREA NITROGEN 35 mg/dL 7-21 (BEAKER) (test gtxr=180) CREATININE (BEAKER) (test 2.47 mg/dL 0.57-1.25 iyvm=535) GLUCOSE RANDOM (BEAKER) 107 mg/dL 70-105 (test semd=503) CALCIUM (BEAKER) (test 8.8 mg/dL 8.4-10.2 zsmu=150) EGFR (BEAKER) (test 20 mL/min/1.73 sq m ESTIMATED GFR IS NOT xtym=1866) ACCURATE CREATININE CLEARANCE IN PREDICTING GLOMERULAR FILTRATION RATE. ESTIMATED GFR IS NOT APPLICABLE FOR DIALYSIS PATIENTS. [id number] 07:29:00 Test Item Value Reference Range Comments MAGNESIUM (BEAKER) (test hexe=771) 1.7 mg/dL 1.6-2.6 CBC W/PLT COUNT & AUTO [id number] 06:43:00 Test Item Value Reference Range Comments WHITE BLOOD CELL COUNT (BEAKER) (test anpr=462) 6.5 K/ L 3.5-10.5 RED BLOOD CELL COUNT (BEAKER) (test qwby=540) 2.91 M/ L 3.93-5.22 HEMOGLOBIN (BEAKER) (test piwv=355) 8.6 GM/DL 11.2-15.7 HEMATOCRIT (BEAKER) (test vylj=771) 27.4 % 34.1-44.9 MEAN CORPUSCULAR VOLUME (BEAKER) (test ucin=002) 94.2 fL 79.4-94.8 MEAN CORPUSCULAR HEMOGLOBIN (BEAKER) (test 29.6 pg 25.6-32.2 zjcj=199) MEAN CORPUSCULAR HEMOGLOBIN CONC (BEAKER) (test 31.4 GM/DL 32.2-35.5 swxc=176) RED CELL DISTRIBUTION WIDTH (BEAKER) (test 17.2 % 11.7-14.4 mazs=955) PLATELET COUNT (BEAKER) (test oqhg=708) 171 K/CU MM 150-450 MEAN PLATELET VOLUME (BEAKER) (test gclw=563) 12.8 fL 9.4-12.3 NUCLEATED RED BLOOD CELLS (BEAKER) (test 0 /100 WBC 0-0 gcax=167) NEUTROPHILS RELATIVE PERCENT (BEAKER) (test 71 % ljqs=042) LYMPHOCYTES RELATIVE PERCENT (BEAKER) (test 19 % gkmr=885) MONOCYTES RELATIVE PERCENT (BEAKER) (test 6 % gbmy=682) EOSINOPHILS RELATIVE PERCENT (BEAKER) (test 3 % diia=287) BASOPHILS RELATIVE PERCENT (BEAKER) (test 1 % lcto=590) NEUTROPHILS ABSOLUTE COUNT (BEAKER) (test 4.61 K/ L 1.56-6.13 jbfa=494) LYMPHOCYTES ABSOLUTE COUNT (BEAKER) (test 1.26 K/ L 1.18-3.74 kqfd=242) MONOCYTES ABSOLUTE COUNT (BEAKER) (test 0.42 K/ L 0.24-0.36 upmw=988) EOSINOPHILS ABSOLUTE COUNT (BEAKER) (test 0.19 K/ L 0.04-0.36 zoav=999) BASOPHILS ABSOLUTE COUNT (BEAKER) (test 0.03 K/ L 0.01-0.08 htxd=208) IMMATURE GRANULOCYTES-RELATIVE PERCENT (BEAKER) 0 % 0-1 (test xjqd=6938) POCT-GLUCOSE [id number] 21:07:00 Test Item Value Reference Range Comments POC-GLUCOSE METER (BEAKER) 116 mg/dL 70-110 TESTED AT [address] (test sxbj=7818) [facility] [address] POCT-GLUCOSE [id number] 17:47:00 Test Item Value Reference Range Comments POC-GLUCOSE METER (BEAKER) 105 mg/dL 70-110 TESTED AT [address] (test vfsa=0991) [facility] [address] POCT-GLUCOSE [id number] 12:14:00 Test Item Value Reference Range Comments POC-GLUCOSE METER (BEAKER) 132 mg/dL 70-110 TESTED AT [address] (test smbt=1911) [place] [id number] POCT-GLUCOSE [id number] 08:07:00 Test Item Value Reference Range Comments POC-GLUCOSE METER (BEAKER) 115 mg/dL 70-110 TESTED AT [address] (test pbgv=1828) [facility] [address] BASIC METABOLIC [id number] 06:56:00 Test Item Value Reference Range Comments SODIUM (BEAKER) (test 132 meq/L 136-145 jspj=681) POTASSIUM (BEAKER) (test 4.4 meq/L 3.5-5.1 stzi=622) CHLORIDE (BEAKER) (test 102 meq/L 98-107 gxhb=492) CO2 (BEAKER) (test 22 meq/L 22-29 whwi=897) BLOOD UREA NITROGEN 35 mg/dL 7-21 (BEAKER) (test lvll=969) CREATININE (BEAKER) (test 2.46 mg/dL 0.57-1.25 kmaa=179) GLUCOSE RANDOM (BEAKER) 111 mg/dL 70-105 (test mfwm=375) CALCIUM (BEAKER) (test 8.5 mg/dL 8.4-10.2 fwmn=853) EGFR (BEAKER) (test 20 mL/min/1.73 sq m ESTIMATED GFR IS NOT pecg=4739) ACCURATE CREATININE CLEARANCE IN PREDICTING GLOMERULAR FILTRATION RATE. ESTIMATED GFR IS NOT APPLICABLE FOR DIALYSIS PATIENTS. [id number] 06:49:00 Test Item Value Reference Range Comments MAGNESIUM (BEAKER) (test wuqa=140) 1.6 mg/dL 1.6-2.6 POCT-GLUCOSE [id number] 21:07:00 Test Item Value Reference Range Comments POC-GLUCOSE METER (BEAKER) 141 mg/dL 70-110 TESTED AT [address] (test rncz=0328) [place] [address] POCT-GLUCOSE [id number] 21:04:00 Test Item Value Reference Range Comments POC-GLUCOSE METER (BEAKER) 73 mg/dL 70-110 TESTED AT [address] (test luax=5534) [place] [address] POCT-GLUCOSE [id number] 17:09:00 Test Item Value Reference Range Comments POC-GLUCOSE METER (BEAKER) 142 mg/dL 70-110 TESTED AT [address] (test vnsd=8684) [place] [address] BASIC METABOLIC [id number] 07:57:00 Test Item Value Reference Range Comments SODIUM (BEAKER) (test 135 meq/L 136-145 ebev=420) POTASSIUM (BEAKER) (test 4.5 meq/L 3.5-5.1 hqbz=240) CHLORIDE (BEAKER) (test 104 meq/L 98-107 oekw=575) CO2 (BEAKER) (test 22 meq/L 22-29 tkri=291) BLOOD UREA NITROGEN 32 mg/dL 7-21 (BEAKER) (test qkxk=206) CREATININE (BEAKER) (test 2.57 mg/dL 0.57-1.25 rddh=279) GLUCOSE RANDOM (BEAKER) 122 mg/dL 70-105 (test ixys=142) CALCIUM (BEAKER) (test 8.9 mg/dL 8.4-10.2 nsbr=086) EGFR (BEAKER) (test 19 mL/min/1.73 sq m ESTIMATED GFR IS NOT pgps=9215) ACCURATE CREATININE CLEARANCE IN PREDICTING GLOMERULAR FILTRATION RATE. ESTIMATED GFR IS NOT APPLICABLE FOR DIALYSIS PATIENTS. [id number] 07:56:00 Test Item Value Reference Range Comments MAGNESIUM (BEAKER) (test omkl=219) 2.0 mg/dL 1.6-2.6 POCT-GLUCOSE [id number] 07:35:00 Test Item Value Reference Range Comments POC-GLUCOSE METER (BEAKER) 137 mg/dL 70-110 TESTED AT [address] (test gkgi=1286) [place] [address] CBC W/PLT COUNT & AUTO [id number] 06:43:00 Test Item Value Reference Range Comments WHITE BLOOD CELL COUNT (BEAKER) (test mwbu=566) 6.3 K/ L 3.5-10.5 RED BLOOD CELL COUNT (BEAKER) (test olsh=803) 2.93 M/ L 3.93-5.22 HEMOGLOBIN (BEAKER) (test pkvv=038) 8.6 GM/DL 11.2-15.7 HEMATOCRIT (BEAKER) (test cfpj=713) 27.4 % 34.1-44.9 MEAN CORPUSCULAR VOLUME (BEAKER) (test vgob=390) 93.5 fL 79.4-94.8 MEAN CORPUSCULAR HEMOGLOBIN (BEAKER) (test 29.4 pg 25.6-32.2 zjbc=775) MEAN CORPUSCULAR HEMOGLOBIN CONC (BEAKER) (test 31.4 GM/DL 32.2-35.5 rjab=363) RED CELL DISTRIBUTION WIDTH (BEAKER) (test 16.8 % 11.7-14.4 oyfk=339) PLATELET COUNT (BEAKER) (test uxfv=052) 185 K/CU MM 150-450 MEAN PLATELET VOLUME (BEAKER) (test nkpm=628) 13.5 fL 9.4-12.3 NUCLEATED RED BLOOD CELLS (BEAKER) (test 0 /100 WBC 0-0 aocx=346) NEUTROPHILS RELATIVE PERCENT (BEAKER) (test 65 % sjtn=833) LYMPHOCYTES RELATIVE PERCENT (BEAKER) (test 22 % rgfr=953) MONOCYTES RELATIVE PERCENT (BEAKER) (test 9 % xtjn=675) EOSINOPHILS RELATIVE PERCENT (BEAKER) (test 3 % pgnb=926) BASOPHILS RELATIVE PERCENT (BEAKER) (test 1 % yafq=509) NEUTROPHILS ABSOLUTE COUNT (BEAKER) (test 4.11 K/ L 1.56-6.13 kjvv=411) LYMPHOCYTES ABSOLUTE COUNT (BEAKER) (test 1.40 K/ L 1.18-3.74 enzv=993) MONOCYTES ABSOLUTE COUNT (BEAKER) (test 0.54 K/ L 0.24-0.36 oksu=939) EOSINOPHILS ABSOLUTE COUNT (BEAKER) (test 0.21 K/ L 0.04-0.36 czhy=816) BASOPHILS ABSOLUTE COUNT (BEAKER) (test 0.04 K/ L 0.01-0.08 ubco=049) IMMATURE GRANULOCYTES-RELATIVE PERCENT (BEAKER) 0 % 0-1 (test ksvx=8024) POCT-GLUCOSE [id number] 22:30:00 Test Item Value Reference Range Comments POC-GLUCOSE METER (BEAKER) 152 mg/dL 70-110 TESTED AT [address] (test xsue=1372) [place] [id number] POCT-GLUCOSE [id number] 17:17:00 Test Item Value Reference Range Comments POC-GLUCOSE METER (BEAKER) 154 mg/dL 70-110 TESTED AT [address] (test pvyr=1182) [place] [id number] POCT-GLUCOSE [id number] 13:09:00 Test Item Value Reference Range Comments POC-GLUCOSE METER (BEAKER) 125 mg/dL 70-110 TESTED AT [address] (test iybb=1336) [place] [address] POCT-GLUCOSE [id number] 09:25:00 Test Item Value Reference Range Comments POC-GLUCOSE METER (BEAKER) 119 mg/dL 70-110 TESTED AT [address] (test huzo=5288) [place] [id number] BASIC METABOLIC [id number] 07:53:00 Test Item Value Reference Range Comments SODIUM (BEAKER) (test 134 meq/L 136-145 pdkf=506) POTASSIUM (BEAKER) (test 4.5 meq/L 3.5-5.1 ocdp=763) CHLORIDE (BEAKER) (test 105 meq/L 98-107 dtsk=444) CO2 (BEAKER) (test 21 meq/L 22-29 cocl=100) BLOOD UREA NITROGEN 32 mg/dL 7-21 (BEAKER) (test ecxx=371) CREATININE (BEAKER) (test 2.49 mg/dL 0.57-1.25 dfbf=329) GLUCOSE RANDOM (BEAKER) 111 mg/dL 70-105 (test hkpi=634) CALCIUM (BEAKER) (test 8.7 mg/dL 8.4-10.2 mxcq=581) EGFR (BEAKER) (test 19 mL/min/1.73 sq m ESTIMATED GFR IS NOT pnnm=1793) ACCURATE CREATININE CLEARANCE IN PREDICTING GLOMERULAR FILTRATION RATE. ESTIMATED GFR IS NOT APPLICABLE FOR DIALYSIS PATIENTS. [id number] 07:47:00 Test Item Value Reference Range Comments MAGNESIUM (BEAKER) (test vmxq=423) 1.4 mg/dL 1.6-2.6 CBC W/PLT COUNT & AUTO [id number] 06:42:00 Test Item Value Reference Range Comments WHITE BLOOD CELL COUNT (BEAKER) (test tsal=448) 6.5 K/ L 3.5-10.5 RED BLOOD CELL COUNT (BEAKER) (test xrwk=393) 3.06 M/ L 3.93-5.22 HEMOGLOBIN (BEAKER) (test gtcw=546) 9.1 GM/DL 11.2-15.7 HEMATOCRIT (BEAKER) (test iuvy=510) 29.3 % 34.1-44.9 MEAN CORPUSCULAR VOLUME (BEAKER) (test ctxn=145) 95.8 fL 79.4-94.8 MEAN CORPUSCULAR HEMOGLOBIN (BEAKER) (test 29.7 pg 25.6-32.2 grrk=204) MEAN CORPUSCULAR HEMOGLOBIN CONC (BEAKER) (test 31.1 GM/DL 32.2-35.5 vovm=196) RED CELL DISTRIBUTION WIDTH (BEAKER) (test 17.1 % 11.7-14.4 xdni=847) PLATELET COUNT (BEAKER) (test rmuw=936) 188 K/CU MM 150-450 MEAN PLATELET VOLUME (BEAKER) (test wkwg=863) 13.1 fL 9.4-12.3 NUCLEATED RED BLOOD CELLS (BEAKER) (test 0 /100 WBC 0-0 uwro=092) NEUTROPHILS RELATIVE PERCENT (BEAKER) (test 66 % zfpw=889) LYMPHOCYTES RELATIVE PERCENT (BEAKER) (test 21 % ueng=748) MONOCYTES RELATIVE PERCENT (BEAKER) (test 8 % afzt=357) EOSINOPHILS RELATIVE PERCENT (BEAKER) (test 3 % jypg=549) BASOPHILS RELATIVE PERCENT (BEAKER) (test 1 % jnzp=153) NEUTROPHILS ABSOLUTE COUNT (BEAKER) (test 4.31 K/ L 1.56-6.13 dtpy=566) LYMPHOCYTES ABSOLUTE COUNT (BEAKER) (test 1.39 K/ L 1.18-3.74 ezdc=881) MONOCYTES ABSOLUTE COUNT (BEAKER) (test 0.55 K/ L 0.24-0.36 vmqt=561) EOSINOPHILS ABSOLUTE COUNT (BEAKER) (test 0.19 K/ L 0.04-0.36 eojr=953) BASOPHILS ABSOLUTE COUNT (BEAKER) (test 0.05 K/ L 0.01-0.08 ofcl=328) IMMATURE GRANULOCYTES-RELATIVE PERCENT (BEAKER) 0 % 0-1 (test uqcd=2293) POCT-GLUCOSE [id number] 22:04:00 Test Item Value Reference Range Comments POC-GLUCOSE METER (BEAKER) 114 mg/dL 70-110 TESTED AT [address] (test meqd=5748) [place] [address] POCT-GLUCOSE [id number] 16:53:00 Test Item Value Reference Range Comments POC-GLUCOSE METER (BEAKER) 232 mg/dL 70-110 TESTED AT [address] (test nefj=7150) [place] [address] POCT-GLUCOSE [id number] 12:27:00 Test Item Value Reference Range Comments POC-GLUCOSE METER (BEAKER) 121 mg/dL 70-110 TESTED AT [address] (test znwr=8011) [place] [id number] POCT-GLUCOSE [id number] 09:12:00 Test Item Value Reference Range Comments POC-GLUCOSE METER (BEAKER) 94 mg/dL 70-110 TESTED AT [address] (test coyf=1698) [place] [id number] POCT-GLUCOSE [id number] 09:12:00 Test Item Value Reference Range Comments POC-GLUCOSE METER (BEAKER) 113 mg/dL 70-110 TESTED AT [address] (test fssm=7148) [place] [address] BASIC METABOLIC [id number] 06:44:00 Test Item Value Reference Range Comments SODIUM (BEAKER) (test 136 meq/L 136-145 rziq=335) POTASSIUM (BEAKER) (test 4.6 meq/L 3.5-5.1 wfml=077) CHLORIDE (BEAKER) (test 107 meq/L 98-107 haet=756) CO2 (BEAKER) (test 21 meq/L 22-29 ddvz=033) BLOOD UREA NITROGEN 37 mg/dL 7-21 (BEAKER) (test pglu=092) CREATININE (BEAKER) (test 2.80 mg/dL 0.57-1.25 czjb=027) GLUCOSE RANDOM (BEAKER) 72 mg/dL 70-105 (test cpss=664) CALCIUM (BEAKER) (test 8.7 mg/dL 8.4-10.2 srtx=507) EGFR (BEAKER) (test 17 mL/min/1.73 sq m ESTIMATED GFR IS NOT uhho=7682) ACCURATE CREATININE CLEARANCE IN PREDICTING GLOMERULAR FILTRATION RATE. ESTIMATED GFR IS NOT APPLICABLE FOR DIALYSIS PATIENTS. [id number] 06:43:00 Test Item Value Reference Range Comments MAGNESIUM (BEAKER) (test lbwi=534) 1.6 mg/dL 1.6-2.6 CBC W/PLT COUNT & AUTO [id number] 06:23:00 Test Item Value Reference Range Comments WHITE BLOOD CELL COUNT (BEAKER) (test ucda=232) 7.1 K/ L 3.5-10.5 RED BLOOD CELL COUNT (BEAKER) (test spxz=376) 2.99 M/ L 3.93-5.22 HEMOGLOBIN (BEAKER) (test doiz=335) 8.9 GM/DL 11.2-15.7 HEMATOCRIT (BEAKER) (test valz=393) 28.5 % 34.1-44.9 MEAN CORPUSCULAR VOLUME (BEAKER) (test qvwl=800) 95.3 fL 79.4-94.8 MEAN CORPUSCULAR HEMOGLOBIN (BEAKER) (test 29.8 pg 25.6-32.2 uskj=944) MEAN CORPUSCULAR HEMOGLOBIN CONC (BEAKER) (test 31.2 GM/DL 32.2-35.5 wzas=741) RED CELL DISTRIBUTION WIDTH (BEAKER) (test 16.8 % 11.7-14.4 eczl=419) PLATELET COUNT (BEAKER) (test vqdd=089) 179 K/CU MM 150-450 MEAN PLATELET VOLUME (BEAKER) (test pwma=487) 13.3 fL 9.4-12.3 NUCLEATED RED BLOOD CELLS (BEAKER) (test 0 /100 WBC 0-0 lmxa=821) NEUTROPHILS RELATIVE PERCENT (BEAKER) (test 67 % hvts=877) LYMPHOCYTES RELATIVE PERCENT (BEAKER) (test 18 % uuut=889) MONOCYTES RELATIVE PERCENT (BEAKER) (test 9 % eqfs=335) EOSINOPHILS RELATIVE PERCENT (BEAKER) (test 5 % ivam=905) BASOPHILS RELATIVE PERCENT (BEAKER) (test 1 % bfki=070) NEUTROPHILS ABSOLUTE COUNT (BEAKER) (test 4.70 K/ L 1.56-6.13 deid=289) LYMPHOCYTES ABSOLUTE COUNT (BEAKER) (test 1.29 K/ L 1.18-3.74 awat=553) MONOCYTES ABSOLUTE COUNT (BEAKER) (test 0.66 K/ L 0.24-0.36 ooxn=437) EOSINOPHILS ABSOLUTE COUNT (BEAKER) (test 0.33 K/ L 0.04-0.36 umsb=142) BASOPHILS ABSOLUTE COUNT (BEAKER) (test 0.05 K/ L 0.01-0.08 hcqe=614) IMMATURE GRANULOCYTES-RELATIVE PERCENT (BEAKER) 0 % 0-1 (test zzje=1834) POCT-GLUCOSE [id number] 21:00:00 Test Item Value Reference Range Comments POC-GLUCOSE METER (BEAKER) 157 mg/dL 70-110 TESTED AT [address] (test eoye=0424) [facility] [address] POCT-GLUCOSE [id number] 17:12:00 Test Item Value Reference Range Comments POC-GLUCOSE METER (BEAKER) 138 mg/dL 70-110 TESTED AT [address] (test hjlk=1971) [place] [id number] POCT-GLUCOSE [id number] 13:13:00 Test Item Value Reference Range Comments POC-GLUCOSE METER (BEAKER) 137 mg/dL 70-110 TESTED AT [address] (test vrgk=2728) [facility] [address] POCT-GLUCOSE [id number] 12:46:00 Test Item Value Reference Range Comments POC-GLUCOSE METER (BEAKER) 141 mg/dL 70-110 TESTED AT [address] (test reeu=7836) [facility] [address] POCT-GLUCOSE [id number] 08:25:00 Test Item Value Reference Range Comments POC-GLUCOSE METER (BEAKER) 118 mg/dL 70-110 TESTED AT [address] (test fqpn=7875) [facility] [address] COMPREHENSIVE METABOLIC [id number] 07:48:00 Test Item Value Reference Range Comments TOTAL PROTEIN (BEAKER) 6.5 gm/dL 6.0-8.3 (test bfyr=709) ALBUMIN (BEAKER) (test 3.1 g/dL 3.5-5.0 idgs=3846) ALKALINE PHOSPHATASE 134 U/L 40-150 (BEAKER) (test lldj=071) BILIRUBIN TOTAL (BEAKER) 0.2 mg/dL 0.2-1.2 (test bkzo=911) SODIUM (BEAKER) (test 138 meq/L 136-145 oumq=372) POTASSIUM (BEAKER) (test 4.1 meq/L 3.5-5.1 xqcj=398) CHLORIDE (BEAKER) (test 108 meq/L 98-107 oxba=996) CO2 (BEAKER) (test 21 meq/L 22-29 rhdl=558) BLOOD UREA NITROGEN 38 mg/dL 7-21 (BEAKER) (test oeuv=904) CREATININE (BEAKER) (test 2.74 mg/dL 0.57-1.25 lkjb=566) GLUCOSE RANDOM (BEAKER) 96 mg/dL 70-105 (test ktpa=868) CALCIUM (BEAKER) (test 8.7 mg/dL 8.4-10.2 pzod=671) AST (SGOT) (BEAKER) (test 11 U/L 5-34 btao=839) ALT (SGPT) (BEAKER) (test 11 U/L 6-55 kecv=802) EGFR (BEAKER) (test 17 mL/min/1.73 sq m ESTIMATED GFR IS NOT difb=9298) ACCURATE CREATININE CLEARANCE IN PREDICTING GLOMERULAR FILTRATION RATE. ESTIMATED GFR IS NOT APPLICABLE FOR DIALYSIS PATIENTS. [id number] 07:42:00 Test Item Value Reference Range Comments PHOSPHORUS (BEAKER) (test zxrg=426) 3.8 mg/dL 2.3-4.7 [id number] 07:42:00 Test Item Value Reference Range Comments MAGNESIUM (BEAKER) (test xjnc=960) 1.7 mg/dL 1.6-2.6 CBC W/PLT COUNT & AUTO [id number] 06:49:00 Test Item Value Reference Range Comments WHITE BLOOD CELL COUNT (BEAKER) (test igln=042) 7.0 K/ L 3.5-10.5 RED BLOOD CELL COUNT (BEAKER) (test wdxk=013) 3.12 M/ L 3.93-5.22 HEMOGLOBIN (BEAKER) (test ajiu=614) 9.2 GM/DL 11.2-15.7 HEMATOCRIT (BEAKER) (test rqnn=989) 29.2 % 34.1-44.9 MEAN CORPUSCULAR VOLUME (BEAKER) (test mhkl=375) 93.6 fL 79.4-94.8 MEAN CORPUSCULAR HEMOGLOBIN (BEAKER) (test 29.5 pg 25.6-32.2 zdno=161) MEAN CORPUSCULAR HEMOGLOBIN CONC (BEAKER) (test 31.5 GM/DL 32.2-35.5 snwd=485) RED CELL DISTRIBUTION WIDTH (BEAKER) (test 17.2 % 11.7-14.4 uued=442) PLATELET COUNT (BEAKER) (test cura=864) 191 K/CU MM 150-450 MEAN PLATELET VOLUME (BEAKER) (test zbab=152) 12.9 fL 9.4-12.3 NUCLEATED RED BLOOD CELLS (BEAKER) (test 0 /100 WBC 0-0 cfew=166) NEUTROPHILS RELATIVE PERCENT (BEAKER) (test 62 % vnjg=661) LYMPHOCYTES RELATIVE PERCENT (BEAKER) (test 24 % xnea=247) MONOCYTES RELATIVE PERCENT (BEAKER) (test 9 % tjya=173) EOSINOPHILS RELATIVE PERCENT (BEAKER) (test 4 % iajx=659) BASOPHILS RELATIVE PERCENT (BEAKER) (test 1 % edpt=458) NEUTROPHILS ABSOLUTE COUNT (BEAKER) (test 4.31 K/ L 1.56-6.13 rqzj=158) LYMPHOCYTES ABSOLUTE COUNT (BEAKER) (test 1.68 K/ L 1.18-3.74 jcgg=526) MONOCYTES ABSOLUTE COUNT (BEAKER) (test 0.59 K/ L 0.24-0.36 hbbr=304) EOSINOPHILS ABSOLUTE COUNT (BEAKER) (test 0.30 K/ L 0.04-0.36 ukgs=869) BASOPHILS ABSOLUTE COUNT (BEAKER) (test 0.06 K/ L 0.01-0.08 pbty=028) IMMATURE GRANULOCYTES-RELATIVE PERCENT (BEAKER) 0 % 0-1 (test noml=1695) CALCIUM, [id number] 06:48:00 Test Item Value Reference Range Comments CALCIUM IONIZED (BEAKER) (test mcpd=629) 1.11 mmol/L 1.12-1.27 PH, BLOOD (BEAKER) (test kivp=2481) 7.37 POCT-GLUCOSE [id number] 20:29:00 Test Item Value Reference Range Comments POC-GLUCOSE METER (BEAKER) 171 mg/dL 70-110 TESTED AT [address] (test rkap=5685) [place] [id number] POCT-GLUCOSE [id number] 17:26:00 Test Item Value Reference Range Comments POC-GLUCOSE METER (BEAKER) 281 mg/dL 70-110 TESTED AT [address] (test jvkx=8029) [place] [id number] POCT-GLUCOSE [id number] 12:16:00 Test Item Value Reference Range Comments POC-GLUCOSE METER (BEAKER) 118 mg/dL 70-110 TESTED AT [address] (test cfva=7795) [place] [address] SURGICALLY OBTAINED CULTURE + GRAM [id number] 09:26:00 Test Item Value Reference Range Comments CULTURE (BEAKER) (test 1+ Escherichia coli cish=5373) GRAM STAIN RESULT <1+ White blood cells (BEAKER) (test seen qzel=0858) GRAM STAIN RESULT No organisms seen (BEAKER) (test dgjy=851301) SURGICALLY OBTAINED CULTURE + GRAM [id number] 09:22:00 Test Item Value Reference Range Comments CULTURE (BEAKER) (test COAGULASE NEGATIVE 1+ Coagulase negative ksir=3344) STAPHYLOCOCCUS Staphylococcus Clindamycin (test code=10) Erythromycin (test code=4) Linezolid (test code=40) Nitrofurantoin (test code=23) Oxacillin (test code=14) Rifampin (test code=43) Tetracycline (test code=2) Trimethoprim + Sulfamethoxazole (test code=47) Vancomycin (test code=13) CULTURE (BEAKER) (test 1+ Enterococcus dpff=3119) species CULTURE (BEAKER) (test ENTEROCOCCUS SPECIES 1+ Vancomycin nnap=0445) resistant Enterococcus species Ampicillin (test code=26) Linezolid (test code=40) Tetracycline (test code=2) Vancomycin (test code=13) GRAM STAIN RESULT 2+ White blood cells (BEAKER) (test hkso=6155) seen GRAM STAIN RESULT No organisms seen (BEAKER) (test jibo=832747) BASIC METABOLIC [id number] 09:18:00 Test Item Value Reference Range Comments SODIUM (BEAKER) (test 140 meq/L 136-145 xzer=218) POTASSIUM (BEAKER) (test 4.1 meq/L 3.5-5.1 inmi=781) CHLORIDE (BEAKER) (test 108 meq/L 98-107 fktq=856) CO2 (BEAKER) (test 21 meq/L 22-29 qfhh=749) BLOOD UREA NITROGEN 44 mg/dL 7-21 (BEAKER) (test kvyq=445) CREATININE (BEAKER) (test 3.12 mg/dL 0.57-1.25 rfve=282) GLUCOSE RANDOM (BEAKER) 162 mg/dL 70-105 (test firu=963) CALCIUM (BEAKER) (test 8.8 mg/dL 8.4-10.2 amen=479) EGFR (BEAKER) (test 15 mL/min/1.73 sq m ESTIMATED GFR IS NOT yjyy=4254) ACCURATE CREATININE CLEARANCE IN PREDICTING GLOMERULAR FILTRATION RATE. ESTIMATED GFR IS NOT APPLICABLE FOR DIALYSIS PATIENTS. [id number] 09:12:00 Test Item Value Reference Range Comments MAGNESIUM (BEAKER) (test eyso=999) 1.8 mg/dL 1.6-2.6 POCT-GLUCOSE [id number] 07:42:00 Test Item Value Reference Range Comments POC-GLUCOSE METER (BEAKER) 174 mg/dL 70-110 TESTED AT [address] (test tvhx=1155) [facility] [address] CBC W/PLT COUNT & AUTO [id number] 07:23:00 Test Item Value Reference Range Comments WHITE BLOOD CELL COUNT (BEAKER) (test ltdu=718) 7.5 K/ L 3.5-10.5 RED BLOOD CELL COUNT (BEAKER) (test qfxa=960) 3.21 M/ L 3.93-5.22 HEMOGLOBIN (BEAKER) (test jlxa=205) 9.4 GM/DL 11.2-15.7 HEMATOCRIT (BEAKER) (test izjo=845) 29.9 % 34.1-44.9 MEAN CORPUSCULAR VOLUME (BEAKER) (test mvpx=901) 93.1 fL 79.4-94.8 MEAN CORPUSCULAR HEMOGLOBIN (BEAKER) (test 29.3 pg 25.6-32.2 seot=622) MEAN CORPUSCULAR HEMOGLOBIN CONC (BEAKER) (test 31.4 GM/DL 32.2-35.5 ceja=159) RED CELL DISTRIBUTION WIDTH (BEAKER) (test 17.3 % 11.7-14.4 bgqh=573) PLATELET COUNT (BEAKER) (test aykt=327) 205 K/CU MM 150-450 MEAN PLATELET VOLUME (BEAKER) (test wvpk=105) 13.4 fL 9.4-12.3 NUCLEATED RED BLOOD CELLS (BEAKER) (test 0 /100 WBC 0-0 pbiu=298) NEUTROPHILS RELATIVE PERCENT (BEAKER) (test 74 % runy=926) LYMPHOCYTES RELATIVE PERCENT (BEAKER) (test 14 % jaes=915) MONOCYTES RELATIVE PERCENT (BEAKER) (test 7 % yfjz=760) EOSINOPHILS RELATIVE PERCENT (BEAKER) (test 3 % orxy=058) BASOPHILS RELATIVE PERCENT (BEAKER) (test 1 % nheh=820) NEUTROPHILS ABSOLUTE COUNT (BEAKER) (test 5.56 K/ L 1.56-6.13 faxb=080) LYMPHOCYTES ABSOLUTE COUNT (BEAKER) (test 1.08 K/ L 1.18-3.74 tusg=404) MONOCYTES ABSOLUTE COUNT (BEAKER) (test 0.53 K/ L 0.24-0.36 usta=227) EOSINOPHILS ABSOLUTE COUNT (BEAKER) (test 0.25 K/ L 0.04-0.36 hyvd=681) BASOPHILS ABSOLUTE COUNT (BEAKER) (test 0.05 K/ L 0.01-0.08 owio=492) IMMATURE GRANULOCYTES-RELATIVE PERCENT (BEAKER) 0 % 0-1 (test ihxg=2025) POCT-GLUCOSE [id number] 21:10:00 Test Item Value Reference Range Comments POC-GLUCOSE METER (BEAKER) 183 mg/dL 70-110 TESTED AT [address] (test bhuq=0705) [place] [id number] POCT-GLUCOSE [id number] 18:32:00 Test Item Value Reference Range Comments POC-GLUCOSE METER (BEAKER) 116 mg/dL 70-110 TESTED AT [address] (test djep=9580) [place] [id number] POCT-GLUCOSE [id number] 13:22:00 Test Item Value Reference Range Comments POC-GLUCOSE METER (BEAKER) 151 mg/dL 70-110 TESTED AT [place] [address] [facility] (test zueh=2375) [facility] [address] POCT-GLUCOSE [id number] 10:11:00 Test Item Value Reference Range Comments POC-GLUCOSE METER (BEAKER) 133 mg/dL 70-[address] [facility] [address] [facility] (test ptwv=2637) [facility] [address] SURGICALLY OBTAINED CULTURE + GRAM [id number] 10:02:00 Test Item Value Reference Range Comments CULTURE (BEAKER) <1+ Same organism has been (test jxrp=0720) isolated from cultures(s) of the same body site and collection date. Repeat identification and susceptibility testing performed only after consultation with the clinical microbiology laboratory.Vancomycin resistant Enterococcus species GRAM STAIN RESULT <1+ White blood cells (BEAKER) (test seen khjs=8397) GRAM STAIN RESULT No organisms seen (BEAKER) (test notr=330207) BASIC METABOLIC [id number] 07:36:00 Test Item Value Reference Range Comments SODIUM (BEAKER) (test 145 meq/L 136-145 xgbd=194) POTASSIUM (BEAKER) (test 3.6 meq/L 3.5-5.1 oyog=273) CHLORIDE (BEAKER) (test 111 meq/L 98-107 eqnf=210) CO2 (BEAKER) (test 21 meq/L 22-29 loah=545) BLOOD UREA NITROGEN 37 mg/dL 7-21 (BEAKER) (test vhng=268) CREATININE (BEAKER) (test 2.51 mg/dL 0.57-1.25 vwme=456) GLUCOSE RANDOM (BEAKER) 89 mg/dL 70-105 (test bsuw=428) CALCIUM (BEAKER) (test 7.8 mg/dL 8.4-10.2 zovk=126) EGFR (BEAKER) (test 19 mL/min/1.73 sq m ESTIMATED GFR IS NOT dxrq=6845) ACCURATE CREATININE CLEARANCE IN PREDICTING GLOMERULAR FILTRATION RATE. ESTIMATED GFR IS NOT APPLICABLE FOR DIALYSIS PATIENTS. [id number] 07:35:00 Test Item Value Reference Range Comments MAGNESIUM (BEAKER) (test rsff=541) 1.7 mg/dL 1.6-2.6 CBC W/PLT COUNT & AUTO [id number] 06:59:00 Test Item Value Reference Range Comments WHITE BLOOD CELL COUNT (BEAKER) (test qykd=994) 5.8 K/ L 3.5-10.5 RED BLOOD CELL COUNT (BEAKER) (test fieh=658) 2.74 M/ L 3.93-5.22 HEMOGLOBIN (BEAKER) (test pgob=153) 8.1 GM/DL 11.2-15.7 HEMATOCRIT (BEAKER) (test mcbb=674) 25.6 % 34.1-44.9 MEAN CORPUSCULAR VOLUME (BEAKER) (test ljfc=906) 93.4 fL 79.4-94.8 MEAN CORPUSCULAR HEMOGLOBIN (BEAKER) (test 29.6 pg 25.6-32.2 kkiz=944) MEAN CORPUSCULAR HEMOGLOBIN CONC (BEAKER) (test 31.6 GM/DL 32.2-35.5 srpd=520) RED CELL DISTRIBUTION WIDTH (BEAKER) (test 17.7 % 11.7-14.4 ziud=717) PLATELET COUNT (BEAKER) (test ryem=371) 174 K/CU MM 150-450 MEAN PLATELET VOLUME (BEAKER) (test mbds=139) 13.0 fL 9.4-12.3 NUCLEATED RED BLOOD CELLS (BEAKER) (test 0 /100 WBC 0-0 wwmi=385) NEUTROPHILS RELATIVE PERCENT (BEAKER) (test 65 % ykhj=783) LYMPHOCYTES RELATIVE PERCENT (BEAKER) (test 18 % gmbi=813) MONOCYTES RELATIVE PERCENT (BEAKER) (test 10 % qgxn=670) EOSINOPHILS RELATIVE PERCENT (BEAKER) (test 5 % ikok=542) BASOPHILS RELATIVE PERCENT (BEAKER) (test 1 % uths=966) NEUTROPHILS ABSOLUTE COUNT (BEAKER) (test 3.73 K/ L 1.56-6.13 uoab=810) LYMPHOCYTES ABSOLUTE COUNT (BEAKER) (test 1.05 K/ L 1.18-3.74 svuf=584) MONOCYTES ABSOLUTE COUNT (BEAKER) (test 0.58 K/ L 0.24-0.36 afva=868) EOSINOPHILS ABSOLUTE COUNT (BEAKER) (test 0.29 K/ L 0.04-0.36 izfl=772) BASOPHILS ABSOLUTE COUNT (BEAKER) (test 0.06 K/ L 0.01-0.08 uwnb=866) IMMATURE GRANULOCYTES-RELATIVE PERCENT (BEAKER) 1 % 0-1 (test isnj=5874) ANAEROBIC [id number] 04:29:00 Test Item Value Reference Range Comments CULTURE (BEAKER) (test upcz=8898) No anaerobes isolated ANAEROBIC [id number] 04:29:00 Test Item Value Reference Range Comments CULTURE (BEAKER) (test klhb=3880) No anaerobes isolated ANAEROBIC [id number] 04:29:00 Test Item Value Reference Range Comments CULTURE (BEAKER) (test mbiw=5605) No anaerobes isolated POCT-GLUCOSE [id number] 21:20:00 Test Item Value Reference Range Comments POC-GLUCOSE METER (BEAKER) 122 mg/dL 70-110 TESTED AT [address] (test gwvj=0698) [facility] [address] POCT-GLUCOSE [id number] 17:29:00 Test Item Value Reference Range Comments POC-GLUCOSE METER (BEAKER) 173 mg/dL 70-110 TESTED AT [address] (test jcod=9000) [facility] [address] POCT-GLUCOSE [id number] 12:15:00 Test Item Value Reference Range Comments POC-GLUCOSE METER (BEAKER) 125 mg/dL 70-110 TESTED AT [address] (test itsw=4708) [facility] [address] POCT-GLUCOSE [id number] 12:12:00 Test Item Value Reference Range Comments POC-GLUCOSE METER (BEAKER) 94 mg/dL 70-110 TESTED AT [address] (test ajqw=1386) [facility] [address] BASIC METABOLIC [id number] 06:42:00 Test Item Value Reference Range Comments SODIUM (BEAKER) (test 140 meq/L 136-145 hpul=231) POTASSIUM (BEAKER) (test 4.3 meq/L 3.5-5.1 uspg=522) CHLORIDE (BEAKER) (test 111 meq/L 98-107 nloh=994) CO2 (BEAKER) (test 22 meq/L 22-29 shgw=650) BLOOD UREA NITROGEN 44 mg/dL 7-21 (BEAKER) (test cubt=902) CREATININE (BEAKER) (test 2.81 mg/dL 0.57-1.25 pecy=472) GLUCOSE RANDOM (BEAKER) 78 mg/dL 70-105 (test ofim=004) CALCIUM (BEAKER) (test 8.3 mg/dL 8.4-10.2 fjux=414) EGFR (BEAKER) (test 17 mL/min/1.73 sq m ESTIMATED GFR IS NOT iior=8753) ACCURATE CREATININE CLEARANCE IN PREDICTING GLOMERULAR FILTRATION RATE. ESTIMATED GFR IS NOT APPLICABLE FOR DIALYSIS PATIENTS. [id number] 06:38:00 Test Item Value Reference Range Comments MAGNESIUM (BEAKER) (test kpxk=253) 1.9 mg/dL 1.6-2.6 CBC W/PLT COUNT & AUTO [id number] 06:32:00 Test Item Value Reference Range Comments WHITE BLOOD CELL COUNT (BEAKER) (test igot=712) 5.3 K/ L 3.5-10.5 RED BLOOD CELL COUNT (BEAKER) (test qesh=626) 2.21 M/ L 3.93-5.22 HEMOGLOBIN (BEAKER) (test infb=835) 6.5 GM/DL 11.2-15.7 HEMATOCRIT (BEAKER) (test ckes=659) 21.4 % 34.1-44.9 MEAN CORPUSCULAR VOLUME (BEAKER) (test duqz=547) 96.8 fL 79.4-94.8 MEAN CORPUSCULAR HEMOGLOBIN (BEAKER) (test 29.4 pg 25.6-32.2 iubt=280) MEAN CORPUSCULAR HEMOGLOBIN CONC (BEAKER) (test 30.4 GM/DL 32.2-35.5 vjsj=061) RED CELL DISTRIBUTION WIDTH (BEAKER) (test 17.2 % 11.7-14.4 iitq=388) PLATELET COUNT (BEAKER) (test qpwt=107) 185 K/CU MM 150-450 MEAN PLATELET VOLUME (BEAKER) (test peta=340) 12.6 fL 9.4-12.3 NUCLEATED RED BLOOD CELLS (BEAKER) (test 0 /100 WBC 0-0 qtsr=800) NEUTROPHILS RELATIVE PERCENT (BEAKER) (test 58 % bwrq=972) LYMPHOCYTES RELATIVE PERCENT (BEAKER) (test 26 % whwm=076) MONOCYTES RELATIVE PERCENT (BEAKER) (test 9 % invl=185) EOSINOPHILS RELATIVE PERCENT (BEAKER) (test 6 % xntl=479) BASOPHILS RELATIVE PERCENT (BEAKER) (test 1 % wtye=291) NEUTROPHILS ABSOLUTE COUNT (BEAKER) (test 3.11 K/ L 1.56-6.13 jtyv=143) LYMPHOCYTES ABSOLUTE COUNT (BEAKER) (test 1.36 K/ L 1.18-3.74 pjpy=511) MONOCYTES ABSOLUTE COUNT (BEAKER) (test 0.46 K/ L 0.24-0.36 dxud=263) EOSINOPHILS ABSOLUTE COUNT (BEAKER) (test 0.33 K/ L 0.04-0.36 chcc=835) BASOPHILS ABSOLUTE COUNT (BEAKER) (test 0.06 K/ L 0.01-0.08 jots=627) IMMATURE GRANULOCYTES-RELATIVE PERCENT (BEAKER) 0 % 0-1 (test trlr=8441) POCT-GLUCOSE [id number] 21:56:00 Test Item Value Reference Range Comments POC-GLUCOSE METER (BEAKER) 105 mg/dL 70-110 TESTED AT [address] (test wgez=1345) [facility] [address] POCT-GLUCOSE [id number] 12:36:00 Test Item Value Reference Range Comments POC-GLUCOSE METER (BEAKER) 85 mg/dL 70-110 TESTED AT [address] (test bswm=7475) [facility] [address] POCT-GLUCOSE [id number] 07:51:00 Test Item Value Reference Range Comments POC-GLUCOSE METER (BEAKER) 91 mg/dL 70-110 TESTED AT [address] (test hxhq=0137) [facility] [address] BASIC METABOLIC [id number] 07:08:00 Test Item Value Reference Range Comments SODIUM (BEAKER) (test 138 meq/L 136-145 foxe=441) POTASSIUM (BEAKER) (test 5.1 meq/L 3.5-5.1 lupb=828) CHLORIDE (BEAKER) (test 108 meq/L 98-107 xnod=292) CO2 (BEAKER) (test 22 meq/L 22-29 agoo=917) BLOOD UREA NITROGEN 48 mg/dL 7-21 (BEAKER) (test nlhq=505) CREATININE (BEAKER) (test 2.83 mg/dL 0.57-1.25 ehmj=247) GLUCOSE RANDOM (BEAKER) 70 mg/dL 70-105 (test uiml=809) CALCIUM (BEAKER) (test 8.6 mg/dL 8.4-10.2 ndko=818) EGFR (BEAKER) (test 17 mL/min/1.73 sq m ESTIMATED GFR IS NOT ekoa=4233) ACCURATE CREATININE CLEARANCE IN PREDICTING GLOMERULAR FILTRATION RATE. ESTIMATED GFR IS NOT APPLICABLE FOR DIALYSIS PATIENTS. [id number] 07:05:00 Test Item Value Reference Range Comments MAGNESIUM (BEAKER) (test gpsf=788) 1.9 mg/dL 1.6-2.6 CBC W/PLT COUNT & AUTO [id number] 06:56:00 Test Item Value Reference Range Comments WHITE BLOOD CELL COUNT (BEAKER) (test yvxh=166) 5.7 K/ L 3.5-10.5 RED BLOOD CELL COUNT (BEAKER) (test oxnm=412) 2.39 M/ L 3.93-5.22 HEMOGLOBIN (BEAKER) (test hpql=513) 7.1 GM/DL 11.2-15.7 HEMATOCRIT (BEAKER) (test pzfq=948) 22.9 % 34.1-44.9 MEAN CORPUSCULAR VOLUME (BEAKER) (test htip=385) 95.8 fL 79.4-94.8 MEAN CORPUSCULAR HEMOGLOBIN (BEAKER) (test 29.7 pg 25.6-32.2 qolt=295) MEAN CORPUSCULAR HEMOGLOBIN CONC (BEAKER) (test 31.0 GM/DL 32.2-35.5 xwyl=312) RED CELL DISTRIBUTION WIDTH (BEAKER) (test 17.2 % 11.7-14.4 fbmr=624) PLATELET COUNT (BEAKER) (test ntlv=754) 204 K/CU MM 150-450 MEAN PLATELET VOLUME (BEAKER) (test szxp=514) 13.4 fL 9.4-12.3 NUCLEATED RED BLOOD CELLS (BEAKER) (test 0 /100 WBC 0-0 iith=951) NEUTROPHILS RELATIVE PERCENT (BEAKER) (test 57 % rvkf=024) LYMPHOCYTES RELATIVE PERCENT (BEAKER) (test 26 % kcxr=616) MONOCYTES RELATIVE PERCENT (BEAKER) (test 9 % vygn=907) EOSINOPHILS RELATIVE PERCENT (BEAKER) (test 7 % tviy=766) BASOPHILS RELATIVE PERCENT (BEAKER) (test 1 % xjft=813) NEUTROPHILS ABSOLUTE COUNT (BEAKER) (test 3.22 K/ L 1.56-6.13 jxjc=490) LYMPHOCYTES ABSOLUTE COUNT (BEAKER) (test 1.46 K/ L 1.18-3.74 hpzf=624) MONOCYTES ABSOLUTE COUNT (BEAKER) (test 0.53 K/ L 0.24-0.36 dkdk=958) EOSINOPHILS ABSOLUTE COUNT (BEAKER) (test 0.40 K/ L 0.04-0.36 cree=175) BASOPHILS ABSOLUTE COUNT (BEAKER) (test 0.06 K/ L 0.01-0.08 snyj=668) IMMATURE GRANULOCYTES-RELATIVE PERCENT (BEAKER) 0 % 0-1 (test mqxh=5345) POCT-GLUCOSE [id number] 20:37:00 Test Item Value Reference Range Comments POC-GLUCOSE METER (BEAKER) 146 mg/dL 70-110 TESTED AT [address] (test ppnz=1631) [place] [address] POCT-GLUCOSE [id number] 17:33:00 Test Item Value Reference Range Comments POC-GLUCOSE METER (BEAKER) 169 mg/dL 70-110 TESTED AT [address] (test fvfl=9814) [place] [id number] POCT-GLUCOSE [id number] 12:31:00 Test Item Value Reference Range Comments POC-GLUCOSE METER (BEAKER) 176 mg/dL 70-110 TESTED AT [address] (test pdce=6355) [place] [id number] POCT-GLUCOSE [id number] 07:33:00 Test Item Value Reference Range Comments POC-GLUCOSE METER (BEAKER) 139 mg/dL 70-110 TESTED AT [address] (test rbkh=4697) [place] [address] CBC W/PLT COUNT & AUTO [id number] 07:18:00 Test Item Value Reference Range Comments WHITE BLOOD CELL COUNT (BEAKER) (test exvf=956) 6.0 K/ L 3.5-10.5 RED BLOOD CELL COUNT (BEAKER) (test qzrc=381) 2.26 M/ L 3.93-5.22 HEMOGLOBIN (BEAKER) (test hdzg=955) 6.9 GM/DL 11.2-15.7 HEMATOCRIT (BEAKER) (test qybz=662) 21.6 % 34.1-44.9 MEAN CORPUSCULAR VOLUME (BEAKER) (test lrkg=286) 95.6 fL 79.4-94.8 MEAN CORPUSCULAR HEMOGLOBIN (BEAKER) (test 30.5 pg 25.6-32.2 hyps=091) MEAN CORPUSCULAR HEMOGLOBIN CONC (BEAKER) (test 31.9 GM/DL 32.2-35.5 fbkp=256) RED CELL DISTRIBUTION WIDTH (BEAKER) (test 17.2 % 11.7-14.4 xaka=555) PLATELET COUNT (BEAKER) (test ankn=817) 191 K/CU MM 150-450 MEAN PLATELET VOLUME (BEAKER) (test jzpz=328) 12.8 fL 9.4-12.3 NUCLEATED RED BLOOD CELLS (BEAKER) (test 0 /100 WBC 0-0 kgfi=002) NEUTROPHILS RELATIVE PERCENT (BEAKER) (test 66 % kyqb=355) LYMPHOCYTES RELATIVE PERCENT (BEAKER) (test 21 % suam=308) MONOCYTES RELATIVE PERCENT (BEAKER) (test 8 % wpgt=408) EOSINOPHILS RELATIVE PERCENT (BEAKER) (test 4 % jdbt=260) BASOPHILS RELATIVE PERCENT (BEAKER) (test 1 % rndj=739) NEUTROPHILS ABSOLUTE COUNT (BEAKER) (test 3.93 K/ L 1.56-6.13 zonu=695) LYMPHOCYTES ABSOLUTE COUNT (BEAKER) (test 1.23 K/ L 1.18-3.74 fhoe=723) MONOCYTES ABSOLUTE COUNT (BEAKER) (test 0.47 K/ L 0.24-0.36 pcun=065) EOSINOPHILS ABSOLUTE COUNT (BEAKER) (test 0.26 K/ L 0.04-0.36 hoaw=474) BASOPHILS ABSOLUTE COUNT (BEAKER) (test 0.05 K/ L 0.01-0.08 yugz=451) IMMATURE GRANULOCYTES-RELATIVE PERCENT (BEAKER) 1 % 0-1 (test oikw=7742) BASIC METABOLIC [id number] 07:17:00 Test Item Value Reference Range Comments SODIUM (BEAKER) (test 138 meq/L 136-145 csfj=917) POTASSIUM (BEAKER) (test 4.3 meq/L 3.5-5.1 zbhc=610) CHLORIDE (BEAKER) (test 111 meq/L 98-107 tmxb=685) CO2 (BEAKER) (test 21 meq/L 22-29 ixsg=196) BLOOD UREA NITROGEN 45 mg/dL 7-21 (BEAKER) (test kukd=849) CREATININE (BEAKER) (test 2.67 mg/dL 0.57-1.25 teal=988) GLUCOSE RANDOM (BEAKER) 115 mg/dL 70-105 (test hbbr=909) CALCIUM (BEAKER) (test 7.9 mg/dL 8.4-10.2 xqpw=516) EGFR (BEAKER) (test 18 mL/min/1.73 sq m ESTIMATED GFR IS NOT kbny=8814) ACCURATE CREATININE CLEARANCE IN PREDICTING GLOMERULAR FILTRATION RATE. ESTIMATED GFR IS NOT APPLICABLE FOR DIALYSIS PATIENTS. [id number] 07:15:00 Test Item Value Reference Range Comments MAGNESIUM (BEAKER) (test kxkw=834) 1.7 mg/dL 1.6-2.6 HEMOGLOBIN AND [id number] 06:50:00 Test Item Value Reference Range Comments HEMOGLOBIN (BEAKER) (test bjhr=790) 7.0 GM/DL 11.2-15.7 HEMATOCRIT (BEAKER) (test tgwp=835) 22.3 % 34.1-44.9 POCT-GLUCOSE [id number] 21:04:00 Test Item Value Reference Range Comments POC-GLUCOSE METER (BEAKER) 196 mg/dL 70-110 TESTED AT [address] (test pmyt=1026) [place] [address] POCT-GLUCOSE [id number] 17:34:00 Test Item Value Reference Range Comments POC-GLUCOSE METER (BEAKER) 114 mg/dL 70-110 TESTED AT [address] (test gudt=8983) [place] [id number] POCT-GLUCOSE [id number] 13:54:00 Test Item Value Reference Range Comments POC-GLUCOSE METER (BEAKER) 145 mg/dL 70-110 TESTED AT [address] (test maci=1011) [place] [id number] POCT-GLUCOSE [id number] 08:05:00 Test Item Value Reference Range Comments POC-GLUCOSE METER (BEAKER) 128 mg/dL 70-110 TESTED AT [address] (test ntgl=5015) [facility] [address] BASIC METABOLIC [id number] 05:53:00 Test Item Value Reference Range Comments SODIUM (BEAKER) (test 135 meq/L 136-145 lrkf=999) POTASSIUM (BEAKER) (test 4.8 meq/L 3.5-5.1 llik=589) CHLORIDE (BEAKER) (test 104 meq/L 98-107 aazi=041) CO2 (BEAKER) (test 22 meq/L 22-29 xczz=427) BLOOD UREA NITROGEN 56 mg/dL 7-21 (BEAKER) (test kscf=500) CREATININE (BEAKER) (test 3.23 mg/dL 0.57-1.25 ogvs=886) GLUCOSE RANDOM (BEAKER) 114 mg/dL 70-105 (test fzfx=170) CALCIUM (BEAKER) (test 8.8 mg/dL 8.4-10.2 bcou=552) EGFR (BEAKER) (test 14 mL/min/1.73 sq m ESTIMATED GFR IS NOT ldkc=5111) ACCURATE CREATININE CLEARANCE IN PREDICTING GLOMERULAR FILTRATION RATE. ESTIMATED GFR IS NOT APPLICABLE FOR DIALYSIS PATIENTS. [id number] 05:50:00 Test Item Value Reference Range Comments MAGNESIUM (BEAKER) (test lgxc=329) 2.1 mg/dL 1.6-2.6 CBC W/PLT COUNT & AUTO [id number] 05:16:00 Test Item Value Reference Range Comments WHITE BLOOD CELL COUNT (BEAKER) (test ecls=732) 6.1 K/ L 3.5-10.5 RED BLOOD CELL COUNT (BEAKER) (test vvmx=804) 2.57 M/ L 3.93-5.22 HEMOGLOBIN (BEAKER) (test ujki=233) 7.6 GM/DL 11.2-15.7 HEMATOCRIT (BEAKER) (test gfvh=995) 24.2 % 34.1-44.9 MEAN CORPUSCULAR VOLUME (BEAKER) (test qiid=934) 94.2 fL 79.4-94.8 MEAN CORPUSCULAR HEMOGLOBIN (BEAKER) (test 29.6 pg 25.6-32.2 nims=198) MEAN CORPUSCULAR HEMOGLOBIN CONC (BEAKER) (test 31.4 GM/DL 32.2-35.5 rpum=414) RED CELL DISTRIBUTION WIDTH (BEAKER) (test 17.1 % 11.7-14.4 rzza=355) PLATELET COUNT (BEAKER) (test itga=064) 204 K/CU MM 150-450 MEAN PLATELET VOLUME (BEAKER) (test pcoe=487) 13.0 fL 9.4-12.3 NUCLEATED RED BLOOD CELLS (BEAKER) (test 0 /100 WBC 0-0 gxpy=569) NEUTROPHILS RELATIVE PERCENT (BEAKER) (test 63 % ycjt=389) LYMPHOCYTES RELATIVE PERCENT (BEAKER) (test 23 % sdrm=186) MONOCYTES RELATIVE PERCENT (BEAKER) (test 9 % bjyw=015) EOSINOPHILS RELATIVE PERCENT (BEAKER) (test 5 % kwfd=100) BASOPHILS RELATIVE PERCENT (BEAKER) (test 1 % rsdy=175) NEUTROPHILS ABSOLUTE COUNT (BEAKER) (test 3.79 K/ L 1.56-6.13 xajk=760) LYMPHOCYTES ABSOLUTE COUNT (BEAKER) (test 1.40 K/ L 1.18-3.74 oqvg=906) MONOCYTES ABSOLUTE COUNT (BEAKER) (test 0.52 K/ L 0.24-0.36 wimm=902) EOSINOPHILS ABSOLUTE COUNT (BEAKER) (test 0.27 K/ L 0.04-0.36 raax=575) BASOPHILS ABSOLUTE COUNT (BEAKER) (test 0.05 K/ L 0.01-0.08 tmxt=131) IMMATURE GRANULOCYTES-RELATIVE PERCENT (BEAKER) 1 % 0-1 (test axac=4470) POCT-GLUCOSE [id number] 21:00:00 Test Item Value Reference Range Comments POC-GLUCOSE METER (BEAKER) 316 mg/dL 70-110 Notified SAMAN HERNANDEZ/TESTED AT [facility] (test ctwe=1154) [address] [place] [address] POCT-GLUCOSE [id number] 18:59:00 Test Item Value Reference Range Comments POC-GLUCOSE METER (BEAKER) 187 mg/dL 70-110 TESTED AT [address] (test aogp=5624) [place] [id number] POCT-GLUCOSE [id number] 11:25:00 Test Item Value Reference Range Comments POC-GLUCOSE METER (BEAKER) 104 mg/dL 70-110 TESTED AT [address] (test vwiz=0380) [place] [address] POCT-GLUCOSE [id number] 07:42:00 Test Item Value Reference Range Comments POC-GLUCOSE METER (BEAKER) 169 mg/dL 70-110 TESTED AT [address] (test ovqb=3932) [place] [address] BASIC METABOLIC [id number] 07:04:00 Test Item Value Reference Range Comments SODIUM (BEAKER) (test 135 meq/L 136-145 lgpt=884) POTASSIUM (BEAKER) (test 4.6 meq/L 3.5-5.1 uera=788) CHLORIDE (BEAKER) (test 104 meq/L 98-107 ytgh=228) CO2 (BEAKER) (test 22 meq/L 22-29 pehl=977) BLOOD UREA NITROGEN 56 mg/dL 7-21 (BEAKER) (test vhlc=135) CREATININE (BEAKER) (test 3.28 mg/dL 0.57-1.25 vqge=425) GLUCOSE RANDOM (BEAKER) 141 mg/dL 70-105 (test smjo=771) CALCIUM (BEAKER) (test 8.8 mg/dL 8.4-10.2 ijfo=956) EGFR (BEAKER) (test 14 mL/min/1.73 sq m ESTIMATED GFR IS NOT wwnq=7160) ACCURATE CREATININE CLEARANCE IN PREDICTING GLOMERULAR FILTRATION RATE. ESTIMATED GFR IS NOT APPLICABLE FOR DIALYSIS PATIENTS. [id number] 06:36:00 Test Item Value Reference Range Comments MAGNESIUM (BEAKER) (test zqyj=460) 2.0 mg/dL 1.6-2.6 CBC W/PLT COUNT & AUTO [id number] 05:40:00 Test Item Value Reference Range Comments WHITE BLOOD CELL COUNT (BEAKER) (test jpvf=864) 6.0 K/ L 3.5-10.5 RED BLOOD CELL COUNT (BEAKER) (test lfoa=187) 2.57 M/ L 3.93-5.22 HEMOGLOBIN (BEAKER) (test bihf=210) 7.6 GM/DL 11.2-15.7 HEMATOCRIT (BEAKER) (test dilj=103) 24.4 % 34.1-44.9 MEAN CORPUSCULAR VOLUME (BEAKER) (test estd=472) 94.9 fL 79.4-94.8 MEAN CORPUSCULAR HEMOGLOBIN (BEAKER) (test 29.6 pg 25.6-32.2 lmha=199) MEAN CORPUSCULAR HEMOGLOBIN CONC (BEAKER) (test 31.1 GM/DL 32.2-35.5 pbyk=531) RED CELL DISTRIBUTION WIDTH (BEAKER) (test 17.3 % 11.7-14.4 byar=070) PLATELET COUNT (BEAKER) (test tdgx=105) 214 K/CU MM 150-450 MEAN PLATELET VOLUME (BEAKER) (test zkzg=105) 13.2 fL 9.4-12.3 NUCLEATED RED BLOOD CELLS (BEAKER) (test 0 /100 WBC 0-0 wtac=811) NEUTROPHILS RELATIVE PERCENT (BEAKER) (test 60 % veit=039) LYMPHOCYTES RELATIVE PERCENT (BEAKER) (test 25 % xfli=832) MONOCYTES RELATIVE PERCENT (BEAKER) (test 10 % vlgn=334) EOSINOPHILS RELATIVE PERCENT (BEAKER) (test 5 % vlmq=664) BASOPHILS RELATIVE PERCENT (BEAKER) (test 1 % kojf=443) NEUTROPHILS ABSOLUTE COUNT (BEAKER) (test 3.58 K/ L 1.56-6.13 pitz=219) LYMPHOCYTES ABSOLUTE COUNT (BEAKER) (test 1.50 K/ L 1.18-3.74 tilf=659) MONOCYTES ABSOLUTE COUNT (BEAKER) (test 0.58 K/ L 0.24-0.36 mtta=794) EOSINOPHILS ABSOLUTE COUNT (BEAKER) (test 0.29 K/ L 0.04-0.36 yuvu=274) BASOPHILS ABSOLUTE COUNT (BEAKER) (test 0.05 K/ L 0.01-0.08 hsdb=684) IMMATURE GRANULOCYTES-RELATIVE PERCENT (BEAKER) 0 % 0-1 (test lclr=5743) POCT-GLUCOSE [id number] 21:05:00 Test Item Value Reference Range Comments POC-GLUCOSE METER (BEAKER) 205 mg/dL 70-110 TESTED AT [address] (test rbve=2988) [facility] [address] POCT-GLUCOSE [id number] 16:23:00 Test Item Value Reference Range Comments POC-GLUCOSE METER (BEAKER) 100 mg/dL 70-110 TESTED AT [address] (test fmyk=9873) [facility] [address] POCT-GLUCOSE [id number] 11:43:00 Test Item Value Reference Range Comments POC-GLUCOSE METER (BEAKER) 104 mg/dL 70-110 TESTED AT [address] (test ajff=4655) [facility] [address] POCT-GLUCOSE [id number] 07:22:00 Test Item Value Reference Range Comments POC-GLUCOSE METER (BEAKER) 103 mg/dL 70-[address] [facility] [address] [facility] (test olyw=2293) [facility] [address] BASIC METABOLIC [id number] 05:51:00 Test Item Value Reference Range Comments SODIUM (BEAKER) (test 137 meq/L 136-145 bpde=908) POTASSIUM (BEAKER) (test 4.7 meq/L 3.5-5.1 kfxp=222) CHLORIDE (BEAKER) (test 106 meq/L 98-107 ispn=274) CO2 (BEAKER) (test 23 meq/L 22-29 kwuh=800) BLOOD UREA NITROGEN 56 mg/dL 7-21 (BEAKER) (test dixj=855) CREATININE (BEAKER) (test 3.16 mg/dL 0.57-1.25 fctj=597) GLUCOSE RANDOM (BEAKER) 77 mg/dL 70-105 (test poid=699) CALCIUM (BEAKER) (test 8.9 mg/dL 8.4-10.2 bpbv=422) EGFR (BEAKER) (test 15 mL/min/1.73 sq m ESTIMATED GFR IS NOT cqso=5461) ACCURATE CREATININE CLEARANCE IN PREDICTING GLOMERULAR FILTRATION RATE. ESTIMATED GFR IS NOT APPLICABLE FOR DIALYSIS PATIENTS. [id number] 05:50:00 Test Item Value Reference Range Comments MAGNESIUM (BEAKER) (test ckrv=512) 2.1 mg/dL 1.6-2.6 CBC W/PLT COUNT & AUTO [id number] 05:28:00 Test Item Value Reference Range Comments WHITE BLOOD CELL COUNT (BEAKER) (test zeen=386) 6.2 K/ L 3.5-10.5 RED BLOOD CELL COUNT (BEAKER) (test djtj=656) 2.65 M/ L 3.93-5.22 HEMOGLOBIN (BEAKER) (test lizp=374) 7.7 GM/DL 11.2-15.7 HEMATOCRIT (BEAKER) (test kaxp=293) 24.8 % 34.1-44.9 MEAN CORPUSCULAR VOLUME (BEAKER) (test tlzu=807) 93.6 fL 79.4-94.8 MEAN CORPUSCULAR HEMOGLOBIN (BEAKER) (test 29.1 pg 25.6-32.2 ksyo=155) MEAN CORPUSCULAR HEMOGLOBIN CONC (BEAKER) (test 31.0 GM/DL 32.2-35.5 riof=753) RED CELL DISTRIBUTION WIDTH (BEAKER) (test 17.4 % 11.7-14.4 nrkd=801) PLATELET COUNT (BEAKER) (test ftom=026) 226 K/CU MM 150-450 MEAN PLATELET VOLUME (BEAKER) (test jffl=986) 12.6 fL 9.4-12.3 NUCLEATED RED BLOOD CELLS (BEAKER) (test 0 /100 WBC 0-0 oqvk=900) NEUTROPHILS RELATIVE PERCENT (BEAKER) (test 60 % eano=839) LYMPHOCYTES RELATIVE PERCENT (BEAKER) (test 25 % mytd=967) MONOCYTES RELATIVE PERCENT (BEAKER) (test 9 % blgo=790) EOSINOPHILS RELATIVE PERCENT (BEAKER) (test 5 % ammt=740) BASOPHILS RELATIVE PERCENT (BEAKER) (test 1 % awro=372) NEUTROPHILS ABSOLUTE COUNT (BEAKER) (test 3.72 K/ L 1.56-6.13 bkdp=981) LYMPHOCYTES ABSOLUTE COUNT (BEAKER) (test 1.55 K/ L 1.18-3.74 dkxk=679) MONOCYTES ABSOLUTE COUNT (BEAKER) (test 0.58 K/ L 0.24-0.36 rlbm=369) EOSINOPHILS ABSOLUTE COUNT (BEAKER) (test 0.31 K/ L 0.04-0.36 cahn=730) BASOPHILS ABSOLUTE COUNT (BEAKER) (test 0.05 K/ L 0.01-0.08 haom=636) IMMATURE GRANULOCYTES-RELATIVE PERCENT (BEAKER) 1 % 0-1 (test clwz=3316) POCT-GLUCOSE [id number] 20:37:00 Test Item Value Reference Range Comments POC-GLUCOSE METER (BEAKER) 210 mg/dL 70-110 TESTED AT [address] (test jkqy=9702) [facility] [address] POCT-GLUCOSE [id number] 16:37:00 Test Item Value Reference Range Comments POC-GLUCOSE METER (BEAKER) 209 mg/dL 70-110 TESTED AT [address] (test trnz=1832) [facility] [address] POCT-GLUCOSE [id number] 08:41:00 Test Item Value Reference Range Comments POC-GLUCOSE METER (BEAKER) 127 mg/dL 70-110 TESTED AT [place] [address] [address] (test qvew=6609) [facility] [address] BASIC METABOLIC [id number] 06:15:00 Test Item Value Reference Range Comments SODIUM (BEAKER) (test 138 meq/L 136-145 usou=879) POTASSIUM (BEAKER) (test 4.9 meq/L 3.5-5.1 enwo=637) CHLORIDE (BEAKER) (test 106 meq/L 98-107 lnih=513) CO2 (BEAKER) (test 23 meq/L 22-29 cbpa=405) BLOOD UREA NITROGEN 57 mg/dL 7-21 (BEAKER) (test ldga=440) CREATININE (BEAKER) (test 3.35 mg/dL 0.57-1.25 cnyg=634) GLUCOSE RANDOM (BEAKER) 108 mg/dL 70-105 (test plbj=709) CALCIUM (BEAKER) (test 8.9 mg/dL 8.4-10.2 yejs=212) EGFR (BEAKER) (test 14 mL/min/1.73 sq m ESTIMATED GFR IS NOT vprh=9684) ACCURATE CREATININE CLEARANCE IN PREDICTING GLOMERULAR FILTRATION RATE. ESTIMATED GFR IS NOT APPLICABLE FOR DIALYSIS PATIENTS. [id number] 06:14:00 Test Item Value Reference Range Comments PHOSPHORUS (BEAKER) (test ziki=300) 4.5 mg/dL 2.3-4.7 [id number] 06:14:00 Test Item Value Reference Range Comments MAGNESIUM (BEAKER) (test tzaj=027) 2.1 mg/dL 1.6-2.6 CBC W/PLT COUNT & AUTO [id number] 05:51:00 Test Item Value Reference Range Comments WHITE BLOOD CELL COUNT (BEAKER) (test cyxl=094) 6.6 K/ L 3.5-10.5 RED BLOOD CELL COUNT (BEAKER) (test bwbc=869) 2.64 M/ L 3.93-5.22 HEMOGLOBIN (BEAKER) (test ujmx=642) 7.6 GM/DL 11.2-15.7 HEMATOCRIT (BEAKER) (test ilep=916) 24.6 % 34.1-44.9 MEAN CORPUSCULAR VOLUME (BEAKER) (test hgls=250) 93.2 fL 79.4-94.8 MEAN CORPUSCULAR HEMOGLOBIN (BEAKER) (test 28.8 pg 25.6-32.2 wzgk=761) MEAN CORPUSCULAR HEMOGLOBIN CONC (BEAKER) (test 30.9 GM/DL 32.2-35.5 sngc=210) RED CELL DISTRIBUTION WIDTH (BEAKER) (test 17.3 % 11.7-14.4 evwe=535) PLATELET COUNT (BEAKER) (test rxcd=290) 221 K/CU MM 150-450 MEAN PLATELET VOLUME (BEAKER) (test robj=931) 13.0 fL 9.4-12.3 NUCLEATED RED BLOOD CELLS (BEAKER) (test 0 /100 WBC 0-0 xqvu=655) NEUTROPHILS RELATIVE PERCENT (BEAKER) (test 62 % jlwj=224) LYMPHOCYTES RELATIVE PERCENT (BEAKER) (test 24 % nzej=353) MONOCYTES RELATIVE PERCENT (BEAKER) (test 9 % gtku=881) EOSINOPHILS RELATIVE PERCENT (BEAKER) (test 4 % scch=694) BASOPHILS RELATIVE PERCENT (BEAKER) (test 1 % nyxe=973) NEUTROPHILS ABSOLUTE COUNT (BEAKER) (test 4.09 K/ L 1.56-6.13 tehh=874) LYMPHOCYTES ABSOLUTE COUNT (BEAKER) (test 1.57 K/ L 1.18-3.74 nosc=387) MONOCYTES ABSOLUTE COUNT (BEAKER) (test 0.61 K/ L 0.24-0.36 buzk=553) EOSINOPHILS ABSOLUTE COUNT (BEAKER) (test 0.25 K/ L 0.04-0.36 zlfv=966) BASOPHILS ABSOLUTE COUNT (BEAKER) (test 0.06 K/ L 0.01-0.08 vvyq=893) IMMATURE GRANULOCYTES-RELATIVE PERCENT (BEAKER) 0 % 0-1 (test ujkw=1497) POCT-GLUCOSE [id number] 21:17:00 Test Item Value Reference Range Comments POC-GLUCOSE METER (BEAKER) 132 mg/dL 70-110 TESTED AT [address] (test osud=6859) [facility] [address] POCT-GLUCOSE [id number] 18:13:00 Test Item Value Reference Range Comments POC-GLUCOSE METER (BEAKER) 164 mg/dL 70-110 TESTED AT [address] (test djul=4959) [facility] [address] POCT-GLUCOSE [id number] 13:11:00 Test Item Value Reference Range Comments POC-GLUCOSE METER (BEAKER) 135 mg/dL 70-[address] [facility] [address] [facility] (test sfku=9307) [facility] [address] POCT-GLUCOSE [id number] 08:56:00 Test Item Value Reference Range Comments POC-GLUCOSE METER (BEAKER) 159 mg/dL 70-110 TESTED AT [address] (test igah=1434) [facility] [address] POCT-GLUCOSE [id number] 07:29:00 Test Item Value Reference Range Comments POC-GLUCOSE METER (BEAKER) 142 mg/dL 70-110 TESTED AT [address] (test vsop=1061) [facility] [address] BASIC METABOLIC [id number] 05:57:00 Test Item Value Reference Range Comments SODIUM (BEAKER) (test 137 meq/L 136-145 otoo=054) POTASSIUM (BEAKER) (test 4.6 meq/L 3.5-5.1 zpfo=886) CHLORIDE (BEAKER) (test 105 meq/L 98-107 skct=179) CO2 (BEAKER) (test 22 meq/L 22-29 dvju=891) BLOOD UREA NITROGEN 55 mg/dL 7-21 (BEAKER) (test zhgy=863) CREATININE (BEAKER) (test 3.36 mg/dL 0.57-1.25 bbrk=498) GLUCOSE RANDOM (BEAKER) 112 mg/dL 70-105 (test licg=084) CALCIUM (BEAKER) (test 9.1 mg/dL 8.4-10.2 zqcr=620) EGFR (BEAKER) (test 14 mL/min/1.73 sq m ESTIMATED GFR IS NOT msba=1935) ACCURATE CREATININE CLEARANCE IN PREDICTING GLOMERULAR FILTRATION RATE. ESTIMATED GFR IS NOT APPLICABLE FOR DIALYSIS PATIENTS. [id number] 05:53:00 Test Item Value Reference Range Comments MAGNESIUM (BEAKER) (test feod=990) 2.0 mg/dL 1.6-2.6 CBC W/PLT COUNT & AUTO [id number] 05:30:00 Test Item Value Reference Range Comments WHITE BLOOD CELL COUNT (BEAKER) (test ltrv=489) 6.6 K/ L 3.5-10.5 RED BLOOD CELL COUNT (BEAKER) (test hhso=325) 2.83 M/ L 3.93-5.22 HEMOGLOBIN (BEAKER) (test bhsx=458) 8.3 GM/DL 11.2-15.7 HEMATOCRIT (BEAKER) (test vfut=042) 26.3 % 34.1-44.9 MEAN CORPUSCULAR VOLUME (BEAKER) (test qbzs=263) 92.9 fL 79.4-94.8 MEAN CORPUSCULAR HEMOGLOBIN (BEAKER) (test 29.3 pg 25.6-32.2 qmxr=821) MEAN CORPUSCULAR HEMOGLOBIN CONC (BEAKER) (test 31.6 GM/DL 32.2-35.5 qnzk=377) RED CELL DISTRIBUTION WIDTH (BEAKER) (test 17.4 % 11.7-14.4 kuyt=396) PLATELET COUNT (BEAKER) (test wtjv=808) 231 K/CU MM 150-450 MEAN PLATELET VOLUME (BEAKER) (test vnym=184) 12.4 fL 9.4-12.3 NUCLEATED RED BLOOD CELLS (BEAKER) (test 0 /100 WBC 0-0 teuu=450) NEUTROPHILS RELATIVE PERCENT (BEAKER) (test 60 % tcjf=396) LYMPHOCYTES RELATIVE PERCENT (BEAKER) (test 25 % mlbm=350) MONOCYTES RELATIVE PERCENT (BEAKER) (test 10 % cajl=380) EOSINOPHILS RELATIVE PERCENT (BEAKER) (test 4 % pxxc=046) BASOPHILS RELATIVE PERCENT (BEAKER) (test 1 % abah=675) NEUTROPHILS ABSOLUTE COUNT (BEAKER) (test 3.95 K/ L 1.56-6.13 olcl=418) LYMPHOCYTES ABSOLUTE COUNT (BEAKER) (test 1.66 K/ L 1.18-3.74 jpjw=577) MONOCYTES ABSOLUTE COUNT (BEAKER) (test 0.62 K/ L 0.24-0.36 mthz=374) EOSINOPHILS ABSOLUTE COUNT (BEAKER) (test 0.27 K/ L 0.04-0.36 owij=861) BASOPHILS ABSOLUTE COUNT (BEAKER) (test 0.04 K/ L 0.01-0.08 atun=952) IMMATURE GRANULOCYTES-RELATIVE PERCENT (BEAKER) 0 % 0-1 (test qkcf=7000) POCT-GLUCOSE [id number] 21:28:00 Test Item Value Reference Range Comments POC-GLUCOSE METER (BEAKER) 149 mg/dL 70-110 TESTED AT [address] (test shls=4703) [facility] [address] POCT-GLUCOSE [id number] 17:40:00 Test Item Value Reference Range Comments POC-GLUCOSE METER (BEAKER) 147 mg/dL 70-110 TESTED AT [address] (test qjjk=1673) [facility] [address] POCT-GLUCOSE [id number] 12:14:00 Test Item Value Reference Range Comments POC-GLUCOSE METER (BEAKER) 129 mg/dL 70-110 TESTED AT [address] (test ybfw=7011) [facility] [address] POCT-GLUCOSE [id number] 07:35:00 Test Item Value Reference Range Comments POC-GLUCOSE METER (BEAKER) 125 mg/dL 70-110 TESTED AT [address] (test upaq=7446) [facility] [address] [id number] 06:48:00 Test Item Value Reference Range Comments MAGNESIUM (BEAKER) (test ydbz=482) 2.1 mg/dL 1.6-2.6 BASIC METABOLIC [id number] 06:48:00 Test Item Value Reference Range Comments SODIUM (BEAKER) (test 136 meq/L 136-145 kkew=333) POTASSIUM (BEAKER) (test 4.7 meq/L 3.5-5.1 ggdy=251) CHLORIDE (BEAKER) (test 104 meq/L 98-107 prbk=775) CO2 (BEAKER) (test 24 meq/L 22-29 qian=586) BLOOD UREA NITROGEN 58 mg/dL 7-21 (BEAKER) (test sdvi=220) CREATININE (BEAKER) (test 3.40 mg/dL 0.57-1.25 kuff=167) GLUCOSE RANDOM (BEAKER) 95 mg/dL 70-105 (test andt=393) CALCIUM (BEAKER) (test 9.0 mg/dL 8.4-10.2 scyt=085) EGFR (BEAKER) (test 14 mL/min/1.73 sq m ESTIMATED GFR IS NOT tfdr=7254) ACCURATE CREATININE CLEARANCE IN PREDICTING GLOMERULAR FILTRATION RATE. ESTIMATED GFR IS NOT APPLICABLE FOR DIALYSIS PATIENTS. CBC W/PLT COUNT & AUTO [id number] 06:05:00 Test Item Value Reference Range Comments WHITE BLOOD CELL COUNT (BEAKER) (test jobw=356) 6.2 K/ L 3.5-10.5 RED BLOOD CELL COUNT (BEAKER) (test pubm=376) 2.70 M/ L 3.93-5.22 HEMOGLOBIN (BEAKER) (test fzlw=358) 7.9 GM/DL 11.2-15.7 HEMATOCRIT (BEAKER) (test awdh=251) 24.9 % 34.1-44.9 MEAN CORPUSCULAR VOLUME (BEAKER) (test aqzs=177) 92.2 fL 79.4-94.8 MEAN CORPUSCULAR HEMOGLOBIN (BEAKER) (test 29.3 pg 25.6-32.2 njgv=333) MEAN CORPUSCULAR HEMOGLOBIN CONC (BEAKER) (test 31.7 GM/DL 32.2-35.5 fysx=950) RED CELL DISTRIBUTION WIDTH (BEAKER) (test 17.7 % 11.7-14.4 jmwc=263) PLATELET COUNT (BEAKER) (test ftbn=798) 208 K/CU MM 150-450 MEAN PLATELET VOLUME (BEAKER) (test hpqb=977) 12.6 fL 9.4-12.3 NUCLEATED RED BLOOD CELLS (BEAKER) (test 0 /100 WBC 0-0 huvs=863) NEUTROPHILS RELATIVE PERCENT (BEAKER) (test 60 % pngh=736) LYMPHOCYTES RELATIVE PERCENT (BEAKER) (test 22 % xrpj=693) MONOCYTES RELATIVE PERCENT (BEAKER) (test 11 % pqnf=023) EOSINOPHILS RELATIVE PERCENT (BEAKER) (test 5 % rlyo=770) BASOPHILS RELATIVE PERCENT (BEAKER) (test 1 % yzme=329) NEUTROPHILS ABSOLUTE COUNT (BEAKER) (test 3.74 K/ L 1.56-6.13 sjha=654) LYMPHOCYTES ABSOLUTE COUNT (BEAKER) (test 1.39 K/ L 1.18-3.74 zopi=107) MONOCYTES ABSOLUTE COUNT (BEAKER) (test 0.68 K/ L 0.24-0.36 ouxz=550) EOSINOPHILS ABSOLUTE COUNT (BEAKER) (test 0.31 K/ L 0.04-0.36 rmwj=491) BASOPHILS ABSOLUTE COUNT (BEAKER) (test 0.06 K/ L 0.01-0.08 vqcq=626) IMMATURE GRANULOCYTES-RELATIVE PERCENT (BEAKER) 0 % 0-1 (test ersw=7704) POCT-GLUCOSE [id number] 21:22:00 Test Item Value Reference Range Comments POC-GLUCOSE METER (BEAKER) 206 mg/dL 70-110 TESTED AT [address] (test mkhg=5195) [facility] [address] POCT-GLUCOSE [id number] 16:23:00 Test Item Value Reference Range Comments POC-GLUCOSE METER (BEAKER) 188 mg/dL 70-110 TESTED AT [address] (test uagy=4397) [place] [id number] POCT-GLUCOSE [id number] 12:37:00 Test Item Value Reference Range Comments POC-GLUCOSE METER (BEAKER) 172 mg/dL 70-110 TESTED AT [address] (test tkhp=4008) [place] [id number] POCT-GLUCOSE [id number] 11:22:00 Test Item Value Reference Range Comments POC-GLUCOSE METER (BEAKER) 193 mg/dL 70-110 TESTED AT [address] (test zbbi=9474) [place] [address] POCT-GLUCOSE [id number] 08:06:00 Test Item Value Reference Range Comments POC-GLUCOSE METER (BEAKER) 143 mg/dL 70-110 TESTED AT [address] (test bqtf=7491) [place] [address] POCT-GLUCOSE [id number] 07:06:00 Test Item Value Reference Range Comments POC-GLUCOSE METER (BEAKER) 89 mg/dL 70-110 TESTED AT [address] (test xuiy=7316) [facility] [address] BASIC METABOLIC [id number] 06:28:00 Test Item Value Reference Range Comments SODIUM (BEAKER) (test 136 meq/L 136-145 zuvb=907) POTASSIUM (BEAKER) (test 4.8 meq/L 3.5-5.1 rzqb=559) CHLORIDE (BEAKER) (test 103 meq/L 98-107 yvmx=077) CO2 (BEAKER) (test 23 meq/L 22-29 caak=547) BLOOD UREA NITROGEN 58 mg/dL 7-21 (BEAKER) (test dnoe=791) CREATININE (BEAKER) (test 3.71 mg/dL 0.57-1.25 gewp=796) GLUCOSE RANDOM (BEAKER) 135 mg/dL 70-105 (test mbgh=337) CALCIUM (BEAKER) (test 9.0 mg/dL 8.4-10.2 nkgv=567) EGFR (BEAKER) (test 12 mL/min/1.73 sq m ESTIMATED GFR IS NOT lxvf=6577) ACCURATE CREATININE CLEARANCE IN PREDICTING GLOMERULAR FILTRATION RATE. ESTIMATED GFR IS NOT APPLICABLE FOR DIALYSIS PATIENTS. [id number] 06:26:00 Test Item Value Reference Range Comments PHOSPHORUS (BEAKER) (test dxjr=700) 5.1 mg/dL 2.3-4.7 [id number] 06:26:00 Test Item Value Reference Range Comments MAGNESIUM (BEAKER) (test wyuw=436) 2.1 mg/dL 1.6-2.6 CBC W/PLT COUNT & AUTO [id number] 05:53:00 Test Item Value Reference Range Comments WHITE BLOOD CELL COUNT (BEAKER) (test quwa=715) 6.2 K/ L 3.5-10.5 RED BLOOD CELL COUNT (BEAKER) (test gxdh=065) 2.73 M/ L 3.93-5.22 HEMOGLOBIN (BEAKER) (test txgp=662) 8.0 GM/DL 11.2-15.7 HEMATOCRIT (BEAKER) (test fndd=387) 25.0 % 34.1-44.9 MEAN CORPUSCULAR VOLUME (BEAKER) (test voqu=493) 91.6 fL 79.4-94.8 MEAN CORPUSCULAR HEMOGLOBIN (BEAKER) (test 29.3 pg 25.6-32.2 jrsi=983) MEAN CORPUSCULAR HEMOGLOBIN CONC (BEAKER) (test 32.0 GM/DL 32.2-35.5 unkc=267) RED CELL DISTRIBUTION WIDTH (BEAKER) (test 18.1 % 11.7-14.4 rmxg=539) PLATELET COUNT (BEAKER) (test jfza=718) 228 K/CU MM 150-450 MEAN PLATELET VOLUME (BEAKER) (test prfo=326) 12.8 fL 9.4-12.3 NUCLEATED RED BLOOD CELLS (BEAKER) (test 0 /100 WBC 0-0 njzg=176) NEUTROPHILS RELATIVE PERCENT (BEAKER) (test 61 % iwgr=014) LYMPHOCYTES RELATIVE PERCENT (BEAKER) (test 24 % jyry=082) MONOCYTES RELATIVE PERCENT (BEAKER) (test 10 % jjny=757) EOSINOPHILS RELATIVE PERCENT (BEAKER) (test 4 % nlkq=963) BASOPHILS RELATIVE PERCENT (BEAKER) (test 1 % opqr=138) NEUTROPHILS ABSOLUTE COUNT (BEAKER) (test 3.81 K/ L 1.56-6.13 ifcr=526) LYMPHOCYTES ABSOLUTE COUNT (BEAKER) (test 1.47 K/ L 1.18-3.74 wxwj=039) MONOCYTES ABSOLUTE COUNT (BEAKER) (test 0.64 K/ L 0.24-0.36 ndww=186) EOSINOPHILS ABSOLUTE COUNT (BEAKER) (test 0.25 K/ L 0.04-0.36 ntpz=576) BASOPHILS ABSOLUTE COUNT (BEAKER) (test 0.04 K/ L 0.01-0.08 zjqj=411) IMMATURE GRANULOCYTES-RELATIVE PERCENT (BEAKER) 0 % 0-1 (test rhbb=6182) POCT-GLUCOSE [id number] 18:09:00 Test Item Value Reference Range Comments POC-GLUCOSE METER (BEAKER) 134 mg/dL 70-110 TESTED AT [address] (test ohhy=3952) [place] [id number] POCT-GLUCOSE [id number] 12:32:00 Test Item Value Reference Range Comments POC-GLUCOSE METER (BEAKER) 133 mg/dL 70-110 TESTED AT [address] (test iwgg=2902) [place] [id number] EEG AWAKE AND [id number] 11:32:00Reason for exam:->SeizuresShould this be performed at the bedside?->YesDATE OF EXAMINATION: 02/16/18 EEG NO: 1988 CPT: 91827 ICD-10: R56.9 CONDITION OF REPORT: Thisis a [...] of epilepsy. Elbert Santiago MD Departmentof Neurology [facility] POCT-GLUCOSE [id number] 08:52:00 Test Item Value Reference Range Comments POC-GLUCOSE METER (BEAKER) 159 mg/dL 70-[address] [facility] [address] [facility] (test uyrt=6208) [facility] [address] B-TYPE NATRIURETIC FACTOR (BNP)2018-02-16 06:29:00 Test Item Value Reference Range Comments B-TYPE NATRIURETIC PEPTIDE (BEAKER) (test 302 pg/mL 0-100 mkkv=802) CBC W/PLT COUNT & AUTO [id number] 06:10:00 Test Item Value Reference Range Comments WHITE BLOOD CELL COUNT (BEAKER) (test cten=765) 5.7 K/ L 3.5-10.5 RED BLOOD CELL COUNT (BEAKER) (test bnjg=900) 2.65 M/ L 3.93-5.22 HEMOGLOBIN (BEAKER) (test gnrk=139) 7.7 GM/DL 11.2-15.7 HEMATOCRIT (BEAKER) (test pkeg=961) 24.3 % 34.1-44.9 MEAN CORPUSCULAR VOLUME (BEAKER) (test imja=642) 91.7 fL 79.4-94.8 MEAN CORPUSCULAR HEMOGLOBIN (BEAKER) (test 29.1 pg 25.6-32.2 raxk=754) MEAN CORPUSCULAR HEMOGLOBIN CONC (BEAKER) (test 31.7 GM/DL 32.2-35.5 jspm=506) RED CELL DISTRIBUTION WIDTH (BEAKER) (test 18.2 % 11.7-14.4 rhuh=393) PLATELET COUNT (BEAKER) (test hlmx=341) 217 K/CU MM 150-450 MEAN PLATELET VOLUME (BEAKER) (test rxxf=451) 13.4 fL 9.4-12.3 NUCLEATED RED BLOOD CELLS (BEAKER) (test 0 /100 WBC 0-0 yeqw=364) NEUTROPHILS RELATIVE PERCENT (BEAKER) (test 55 % ethr=180) LYMPHOCYTES RELATIVE PERCENT (BEAKER) (test 29 % sbln=048) MONOCYTES RELATIVE PERCENT (BEAKER) (test 10 % jhla=362) EOSINOPHILS RELATIVE PERCENT (BEAKER) (test 5 % nhby=505) BASOPHILS RELATIVE PERCENT (BEAKER) (test 1 % zhml=415) NEUTROPHILS ABSOLUTE COUNT (BEAKER) (test 3.16 K/ L 1.56-6.13 zrqh=108) LYMPHOCYTES ABSOLUTE COUNT (BEAKER) (test 1.65 K/ L 1.18-3.74 xtxo=327) MONOCYTES ABSOLUTE COUNT (BEAKER) (test 0.59 K/ L 0.24-0.36 lkqp=430) EOSINOPHILS ABSOLUTE COUNT (BEAKER) (test 0.27 K/ L 0.04-0.36 prhf=094) BASOPHILS ABSOLUTE COUNT (BEAKER) (test 0.04 K/ L 0.01-0.08 pxax=445) IMMATURE GRANULOCYTES-RELATIVE PERCENT (BEAKER) 0 % 0-1 (test gzlk=4562) BASIC METABOLIC [id number] 06:08:00 Test Item Value Reference Range Comments SODIUM (BEAKER) (test 133 meq/L 136-145 zmfa=519) POTASSIUM (BEAKER) (test 4.6 meq/L 3.5-5.1 stkk=172) CHLORIDE (BEAKER) (test 101 meq/L 98-107 qast=580) CO2 (BEAKER) (test 22 meq/L 22-29 rdjy=005) BLOOD UREA NITROGEN 53 mg/dL 7-21 (BEAKER) (test mnwi=675) CREATININE (BEAKER) (test 3.79 mg/dL 0.57-1.25 ziwb=726) GLUCOSE RANDOM (BEAKER) 131 mg/dL 70-105 (test nxky=959) CALCIUM (BEAKER) (test 8.6 mg/dL 8.4-10.2 rnsv=119) EGFR (BEAKER) (test 12 mL/min/1.73 sq m ESTIMATED GFR IS NOT bqaw=5209) ACCURATE CREATININE CLEARANCE IN PREDICTING GLOMERULAR FILTRATION RATE. ESTIMATED GFR IS NOT APPLICABLE FOR DIALYSIS PATIENTS. [id number] 06:07:00 Test Item Value Reference Range Comments MAGNESIUM (BEAKER) (test smpc=607) 2.0 mg/dL 1.6-2.6 CT, BRAIN, WITHOUT [id number] 03:50:00FINAL REPORT CT, BRAIN, WITHOUT CONTRAST INDICATION: [...] MDReport Verified Date/Time: 02/16/2018 03:50:17 Reading Location: [facility] C013Y CT Body Reading Room POCT- GLUCOSE [id number] 21:32:00 Test Item Value Reference Range Comments POC-GLUCOSE METER (BEAKER) 130 mg/dL 70-110 TESTED AT [address] (test hzvg=6756) [place] [id number] POCT-GLUCOSE [id number] 16:48:00 Test Item Value Reference Range Comments POC-GLUCOSE METER (BEAKER) 90 mg/dL 70-110 TESTED AT [address] (test njbw=8077) [facility] [address] HEMOGLOBIN AND [id number] 13:03:00 Test Item Value Reference Range Comments HEMOGLOBIN (BEAKER) (test uxpi=777) 6.5 GM/DL 11.2-15.7 HEMATOCRIT (BEAKER) (test tuem=750) 20.7 % 34.1-44.9 Page if hgb < 7POCT-GLUCOSE [id number] 11:14:00 Test Item Value Reference Range Comments POC-GLUCOSE METER (BEAKER) 147 mg/dL 70-110 TESTED AT [place] [id number] [facility] (test hxqr=1594) [facility] [address] POCT-GLUCOSE [id number] 07:41:00 Test Item Value Reference Range Comments POC-GLUCOSE METER (BEAKER) 176 mg/dL 70-110 TESTED AT [address] (test uvdq=7037) [facility] [address] BASIC METABOLIC [id number] 06:10:00 Test Item Value Reference Range Comments SODIUM (BEAKER) (test 135 meq/L 136-145 hkzo=197) POTASSIUM (BEAKER) (test 4.7 meq/L 3.5-5.1 yzuy=021) CHLORIDE (BEAKER) (test 101 meq/L 98-107 jkbj=844) CO2 (BEAKER) (test 23 meq/L 22-29 mbrt=355) BLOOD UREA NITROGEN 50 mg/dL 7-21 (BEAKER) (test tlka=025) CREATININE (BEAKER) (test 3.78 mg/dL 0.57-1.25 envu=964) GLUCOSE RANDOM (BEAKER) 136 mg/dL 70-105 (test evnt=809) CALCIUM (BEAKER) (test 8.8 mg/dL 8.4-10.2 xxpk=442) EGFR (BEAKER) (test 12 mL/min/1.73 sq m ESTIMATED GFR IS NOT bijz=0125) ACCURATE CREATININE CLEARANCE IN PREDICTING GLOMERULAR FILTRATION RATE. ESTIMATED GFR IS NOT APPLICABLE FOR DIALYSIS PATIENTS. [id number] 06:02:00 Test Item Value Reference Range Comments MAGNESIUM (BEAKER) (test qjpv=028) 1.9 mg/dL 1.6-2.6 CBC W/PLT COUNT & AUTO [id number] 05:47:00 Test Item Value Reference Range Comments WHITE BLOOD CELL COUNT (BEAKER) (test mhbt=274) 7.1 K/ L 3.5-10.5 RED BLOOD CELL COUNT (BEAKER) (test nnav=331) 2.15 M/ L 3.93-5.22 HEMOGLOBIN (BEAKER) (test gchv=940) 6.6 GM/DL 11.2-15.7 HEMATOCRIT (BEAKER) (test kjuq=661) 21.1 % 34.1-44.9 MEAN CORPUSCULAR VOLUME (BEAKER) (test dmym=578) 98.1 fL 79.4-94.8 MEAN CORPUSCULAR HEMOGLOBIN (BEAKER) (test 30.7 pg 25.6-32.2 dtoz=005) MEAN CORPUSCULAR HEMOGLOBIN CONC (BEAKER) (test 31.3 GM/DL 32.2-35.5 rdjm=220) RED CELL DISTRIBUTION WIDTH (BEAKER) (test 13.5 % 11.7-14.4 gnui=043) PLATELET COUNT (BEAKER) (test nkxr=840) 206 K/CU MM 150-450 MEAN PLATELET VOLUME (BEAKER) (test ling=974) 13.2 fL 9.4-12.3 NUCLEATED RED BLOOD CELLS (BEAKER) (test 0 /100 WBC 0-0 grbv=803) NEUTROPHILS RELATIVE PERCENT (BEAKER) (test 64 % cilo=685) LYMPHOCYTES RELATIVE PERCENT (BEAKER) (test 21 % nexc=099) MONOCYTES RELATIVE PERCENT (BEAKER) (test 10 % eido=300) EOSINOPHILS RELATIVE PERCENT (BEAKER) (test 4 % tild=981) BASOPHILS RELATIVE PERCENT (BEAKER) (test 1 % ynau=079) NEUTROPHILS ABSOLUTE COUNT (BEAKER) (test 4.54 K/ L 1.56-6.13 tjtk=300) LYMPHOCYTES ABSOLUTE COUNT (BEAKER) (test 1.49 K/ L 1.18-3.74 sjyz=100) MONOCYTES ABSOLUTE COUNT (BEAKER) (test 0.70 K/ L 0.24-0.36 ooyj=089) EOSINOPHILS ABSOLUTE COUNT (BEAKER) (test 0.31 K/ L 0.04-0.36 fmat=029) BASOPHILS ABSOLUTE COUNT (BEAKER) (test 0.04 K/ L 0.01-0.08 oysd=217) IMMATURE GRANULOCYTES-RELATIVE PERCENT (BEAKER) 1 % 0-1 (test sfwr=6009) POCT-GLUCOSE [id number] 21:17:00 Test Item Value Reference Range Comments POC-GLUCOSE METER (BEAKER) 235 mg/dL 70-[address] [facility] [address] [facility] (test rosb=8518) [facility] [address] POCT-GLUCOSE [id number] 17:07:00 Test Item Value Reference Range Comments POC-GLUCOSE METER (BEAKER) 304 mg/dL 70-110 Notified SAMAN HERNANDEZ/TESTED AT [facility] (test epvd=2263) [address] [place] [id number] POCT-GLUCOSE [id number] 12:13:00 Test Item Value Reference Range Comments POC-GLUCOSE METER (BEAKER) 225 mg/dL 70-110 TESTED AT [address] (test ybjt=5645) [facility] [address] POCT-GLUCOSE [id number] 08:01:00 Test Item Value Reference Range Comments POC-GLUCOSE METER (BEAKER) 177 mg/dL 70-110 TESTED AT [address] (test jcnv=7348) [facility] [address] BASIC METABOLIC [id number] 07:41:00 Test Item Value Reference Range Comments SODIUM (BEAKER) (test 132 meq/L 136-145 apxp=370) POTASSIUM (BEAKER) (test 4.7 meq/L 3.5-5.1 qnji=522) CHLORIDE (BEAKER) (test 100 meq/L 98-107 ghid=854) CO2 (BEAKER) (test 23 meq/L 22-29 emax=969) BLOOD UREA NITROGEN 45 mg/dL 7-21 (BEAKER) (test fdzf=872) CREATININE (BEAKER) (test 3.50 mg/dL 0.57-1.25 amxx=360) GLUCOSE RANDOM (BEAKER) 153 mg/dL 70-105 (test yugs=751) CALCIUM (BEAKER) (test 8.8 mg/dL 8.4-10.2 fppb=962) EGFR (BEAKER) (test 13 mL/min/1.73 sq m ESTIMATED GFR IS NOT qcvt=8264) ACCURATE CREATININE CLEARANCE IN PREDICTING GLOMERULAR FILTRATION RATE. ESTIMATED GFR IS NOT APPLICABLE FOR DIALYSIS PATIENTS. [id number] 07:34:00 Test Item Value Reference Range Comments MAGNESIUM (BEAKER) (test kxqg=060) 1.9 mg/dL 1.6-2.6 CBC W/PLT COUNT & AUTO [id number] 06:18:00 Test Item Value Reference Range Comments WHITE BLOOD CELL COUNT (BEAKER) (test okcv=595) 7.4 K/ L 3.5-10.5 RED BLOOD CELL COUNT (BEAKER) (test yqdn=219) 2.32 M/ L 3.93-5.22 HEMOGLOBIN (BEAKER) (test weqz=871) 7.1 GM/DL 11.2-15.7 HEMATOCRIT (BEAKER) (test vksm=153) 22.6 % 34.1-44.9 MEAN CORPUSCULAR VOLUME (BEAKER) (test ijwy=369) 97.4 fL 79.4-94.8 MEAN CORPUSCULAR HEMOGLOBIN (BEAKER) (test 30.6 pg 25.6-32.2 rith=097) MEAN CORPUSCULAR HEMOGLOBIN CONC (BEAKER) (test 31.4 GM/DL 32.2-35.5 qsju=582) RED CELL DISTRIBUTION WIDTH (BEAKER) (test 13.8 % 11.7-14.4 lnwk=911) PLATELET COUNT (BEAKER) (test oifr=964) 226 K/CU MM 150-450 MEAN PLATELET VOLUME (BEAKER) (test btfm=548) 12.6 fL 9.4-12.3 NUCLEATED RED BLOOD CELLS (BEAKER) (test 0 /100 WBC 0-0 ohhf=221) NEUTROPHILS RELATIVE PERCENT (BEAKER) (test 65 % rjsf=738) LYMPHOCYTES RELATIVE PERCENT (BEAKER) (test 21 % pphe=531) MONOCYTES RELATIVE PERCENT (BEAKER) (test 9 % ylfg=044) EOSINOPHILS RELATIVE PERCENT (BEAKER) (test 4 % ztsi=762) BASOPHILS RELATIVE PERCENT (BEAKER) (test 1 % lqeu=368) NEUTROPHILS ABSOLUTE COUNT (BEAKER) (test 4.84 K/ L 1.56-6.13 bssn=227) LYMPHOCYTES ABSOLUTE COUNT (BEAKER) (test 1.52 K/ L 1.18-3.74 wneq=620) MONOCYTES ABSOLUTE COUNT (BEAKER) (test 0.66 K/ L 0.24-0.36 rdro=574) EOSINOPHILS ABSOLUTE COUNT (BEAKER) (test 0.32 K/ L 0.04-0.36 oxbh=196) BASOPHILS ABSOLUTE COUNT (BEAKER) (test 0.04 K/ L 0.01-0.08 xtas=794) IMMATURE GRANULOCYTES-RELATIVE PERCENT (BEAKER) 0 % 0-1 (test jawu=8440) POCT-GLUCOSE [id number] 21:21:00 Test Item Value Reference Range Comments POC-GLUCOSE METER (BEAKER) 188 mg/dL 70-110 TESTED AT [address] (test yeti=7428) [facility] [address] POCT-GLUCOSE [id number] 17:03:00 Test Item Value Reference Range Comments POC-GLUCOSE METER (BEAKER) 262 mg/dL 70-110 TESTED AT [address] (test lrza=2762) [facility] [address] POCT-GLUCOSE [id number] 12:03:00 Test Item Value Reference Range Comments POC-GLUCOSE METER (BEAKER) 193 mg/dL 70-110 TESTED AT [address] (test nkxu=8763) [facility] [address] POCT-GLUCOSE [id number] 08:18:00 Test Item Value Reference Range Comments POC-GLUCOSE METER (BEAKER) 219 mg/dL 70-110 TESTED AT [address] (test kllf=9289) [facility] [address] BASIC METABOLIC [id number] 06:54:00 Test Item Value Reference Range Comments SODIUM (BEAKER) (test 133 meq/L 136-145 xzxz=158) POTASSIUM (BEAKER) (test 4.5 meq/L 3.5-5.1 tbtq=670) CHLORIDE (BEAKER) (test 101 meq/L 98-107 amic=076) CO2 (BEAKER) (test 24 meq/L 22-29 xkjy=500) BLOOD UREA NITROGEN 42 mg/dL 7-21 (BEAKER) (test ccyp=912) CREATININE (BEAKER) (test 3.61 mg/dL 0.57-1.25 imcl=778) GLUCOSE RANDOM (BEAKER) 186 mg/dL 70-105 (test dgnh=115) CALCIUM (BEAKER) (test 8.4 mg/dL 8.4-10.2 uzqi=227) EGFR (BEAKER) (test 13 mL/min/1.73 sq m ESTIMATED GFR IS NOT mkwm=2089) ACCURATE CREATININE CLEARANCE IN PREDICTING GLOMERULAR FILTRATION RATE. ESTIMATED GFR IS NOT APPLICABLE FOR DIALYSIS PATIENTS. [id number] 06:39:00 Test Item Value Reference Range Comments PHOSPHORUS (BEAKER) (test yfkl=748) 4.5 mg/dL 2.3-4.7 [id number] 06:39:00 Test Item Value Reference Range Comments MAGNESIUM (BEAKER) (test iwho=649) 2.1 mg/dL 1.6-2.6 CBC W/PLT COUNT & AUTO [id number] 05:31:00 Test Item Value Reference Range Comments WHITE BLOOD CELL COUNT (BEAKER) (test wlkc=448) 7.3 K/ L 3.5-10.5 RED BLOOD CELL COUNT (BEAKER) (test oobi=764) 2.27 M/ L 3.93-5.22 HEMOGLOBIN (BEAKER) (test mwac=519) 7.0 GM/DL 11.2-15.7 HEMATOCRIT (BEAKER) (test irdx=898) 22.1 % 34.1-44.9 MEAN CORPUSCULAR VOLUME (BEAKER) (test wwsn=756) 97.4 fL 79.4-94.8 MEAN CORPUSCULAR HEMOGLOBIN (BEAKER) (test 30.8 pg 25.6-32.2 cwar=355) MEAN CORPUSCULAR HEMOGLOBIN CONC (BEAKER) (test 31.7 GM/DL 32.2-35.5 esuo=693) RED CELL DISTRIBUTION WIDTH (BEAKER) (test 13.5 % 11.7-14.4 musx=037) PLATELET COUNT (BEAKER) (test xmhq=697) 195 K/CU MM 150-450 MEAN PLATELET VOLUME (BEAKER) (test ezbd=241) 13.2 fL 9.4-12.3 NUCLEATED RED BLOOD CELLS (BEAKER) (test 0 /100 WBC 0-0 oimk=174) NEUTROPHILS RELATIVE PERCENT (BEAKER) (test 65 % ojdc=939) LYMPHOCYTES RELATIVE PERCENT (BEAKER) (test 21 % pyzt=969) MONOCYTES RELATIVE PERCENT (BEAKER) (test 9 % stie=406) EOSINOPHILS RELATIVE PERCENT (BEAKER) (test 4 % psrb=087) BASOPHILS RELATIVE PERCENT (BEAKER) (test 1 % wfmb=092) NEUTROPHILS ABSOLUTE COUNT (BEAKER) (test 4.75 K/ L 1.56-6.13 dmki=931) LYMPHOCYTES ABSOLUTE COUNT (BEAKER) (test 1.51 K/ L 1.18-3.74 jrwn=516) MONOCYTES ABSOLUTE COUNT (BEAKER) (test 0.65 K/ L 0.24-0.36 wmll=757) EOSINOPHILS ABSOLUTE COUNT (BEAKER) (test 0.31 K/ L 0.04-0.36 quph=710) BASOPHILS ABSOLUTE COUNT (BEAKER) (test 0.04 K/ L 0.01-0.08 ltvm=045) IMMATURE GRANULOCYTES-RELATIVE PERCENT (BEAKER) 1 % 0-1 (test rcbt=8445) POCT-GLUCOSE [id number] 20:31:00 Test Item Value Reference Range Comments POC-GLUCOSE METER (BEAKER) 246 mg/dL 70-110 TESTED AT [address] (test ddxn=9465) [place] [id number] POCT-GLUCOSE [id number] 19:09:00 Test Item Value Reference Range Comments POC-GLUCOSE METER (BEAKER) 272 mg/dL 70-110 TESTED AT [address] (test juws=6521) [place] [id number] POCT-GLUCOSE [id number] 17:42:00 Test Item Value Reference Range Comments POC-GLUCOSE METER (BEAKER) 297 mg/dL 70-110 TESTED AT [address] (test jbdz=5875) [place] [id number] POCT-GLUCOSE [id number] 12:46:00 Test Item Value Reference Range Comments POC-GLUCOSE METER (BEAKER) 183 mg/dL 70-110 TESTED AT [address] (test joep=1238) [place] [id number] POCT-GLUCOSE [id number] 08:08:00 Test Item Value Reference Range Comments POC-GLUCOSE METER (BEAKER) 207 mg/dL 70-110 TESTED AT [address] (test faho=1439) [facility] [address] BASIC METABOLIC [id number] 06:34:00 Test Item Value Reference Range Comments SODIUM (BEAKER) (test 135 meq/L 136-145 nigm=063) POTASSIUM (BEAKER) (test 4.2 meq/L 3.5-5.1 rpnd=415) CHLORIDE (BEAKER) (test 100 meq/L 98-107 pwur=868) CO2 (BEAKER) (test 26 meq/L 22-29 reih=334) BLOOD UREA NITROGEN 36 mg/dL 7-21 (BEAKER) (test aslg=475) CREATININE (BEAKER) (test 3.69 mg/dL 0.57-1.25 yetg=445) GLUCOSE RANDOM (BEAKER) 166 mg/dL 70-105 (test zbjg=597) CALCIUM (BEAKER) (test 8.8 mg/dL 8.4-10.2 wyxd=059) EGFR (BEAKER) (test 12 mL/min/1.73 sq m ESTIMATED GFR IS NOT vfwk=7894) ACCURATE CREATININE CLEARANCE IN PREDICTING GLOMERULAR FILTRATION RATE. ESTIMATED GFR IS NOT APPLICABLE FOR DIALYSIS PATIENTS. [id number] 06:28:00 Test Item Value Reference Range Comments MAGNESIUM (BEAKER) (test vmsh=366) 1.6 mg/dL 1.6-2.6 CBC W/PLT COUNT & AUTO [id number] 06:12:00 Test Item Value Reference Range Comments WHITE BLOOD CELL COUNT (BEAKER) (test maam=302) 7.3 K/ L 3.5-10.5 RED BLOOD CELL COUNT (BEAKER) (test mhnu=658) 2.28 M/ L 3.93-5.22 HEMOGLOBIN (BEAKER) (test odkg=159) 7.0 GM/DL 11.2-15.7 HEMATOCRIT (BEAKER) (test sxtz=303) 22.0 % 34.1-44.9 MEAN CORPUSCULAR VOLUME (BEAKER) (test wrxv=271) 96.5 fL 79.4-94.8 MEAN CORPUSCULAR HEMOGLOBIN (BEAKER) (test 30.7 pg 25.6-32.2 qezu=452) MEAN CORPUSCULAR HEMOGLOBIN CONC (BEAKER) (test 31.8 GM/DL 32.2-35.5 bsbc=997) RED CELL DISTRIBUTION WIDTH (BEAKER) (test 13.3 % 11.7-14.4 bexw=082) PLATELET COUNT (BEAKER) (test yaro=458) 200 K/CU MM 150-450 MEAN PLATELET VOLUME (BEAKER) (test glsf=537) 12.8 fL 9.4-12.3 NUCLEATED RED BLOOD CELLS (BEAKER) (test 0 /100 WBC 0-0 nzwp=143) NEUTROPHILS RELATIVE PERCENT (BEAKER) (test 65 % vmcv=751) LYMPHOCYTES RELATIVE PERCENT (BEAKER) (test 22 % ptbm=289) MONOCYTES RELATIVE PERCENT (BEAKER) (test 9 % zxqa=716) EOSINOPHILS RELATIVE PERCENT (BEAKER) (test 4 % strc=203) BASOPHILS RELATIVE PERCENT (BEAKER) (test 0 % dqzm=714) NEUTROPHILS ABSOLUTE COUNT (BEAKER) (test 4.71 K/ L 1.56-6.13 nfvg=524) LYMPHOCYTES ABSOLUTE COUNT (BEAKER) (test 1.58 K/ L 1.18-3.74 gdxn=984) MONOCYTES ABSOLUTE COUNT (BEAKER) (test 0.65 K/ L 0.24-0.36 aanz=816) EOSINOPHILS ABSOLUTE COUNT (BEAKER) (test 0.27 K/ L 0.04-0.36 rsnn=461) BASOPHILS ABSOLUTE COUNT (BEAKER) (test 0.03 K/ L 0.01-0.08 vrzk=451) IMMATURE GRANULOCYTES-RELATIVE PERCENT (BEAKER) 0 % 0-1 (test ozau=2364) POCT-GLUCOSE [id number] 21:22:00 Test Item Value Reference Range Comments POC-GLUCOSE METER (BEAKER) 279 mg/dL 70-110 TESTED AT [address] (test ihcy=1187) [place] [address] POCT-GLUCOSE [id number] 17:16:00 Test Item Value Reference Range Comments POC-GLUCOSE METER (BEAKER) 190 mg/dL 70-110 TESTED AT [address] (test uadf=0446) [place] [address] POCT-GLUCOSE [id number] 17:04:00 Test Item Value Reference Range Comments POC-GLUCOSE METER (BEAKER) 197 mg/dL 70-110 TESTED AT [address] (test owah=1694) [place] [address] POCT-GLUCOSE [id number] 13:29:00 Test Item Value Reference Range Comments POC-GLUCOSE METER (BEAKER) 190 mg/dL 70-110 TESTED AT [address] (test wzbv=4803) [place] [id number] POCT-GLUCOSE [id number] 08:27:00 Test Item Value Reference Range Comments POC-GLUCOSE METER (BEAKER) 236 mg/dL 70-110 TESTED AT [address] (test dgll=7913) [place] [id number] BASIC METABOLIC [id number] 06:50:00 Test Item Value Reference Range Comments SODIUM (BEAKER) (test 134 meq/L 136-145 gjws=617) POTASSIUM (BEAKER) (test 4.4 meq/L 3.5-5.1 hphk=417) CHLORIDE (BEAKER) (test 99 meq/L 98-107 ttgd=580) CO2 (BEAKER) (test 26 meq/L 22-29 kubd=358) BLOOD UREA NITROGEN 33 mg/dL 7-21 (BEAKER) (test pooy=471) CREATININE (BEAKER) (test 3.65 mg/dL 0.57-1.25 zgxh=052) GLUCOSE RANDOM (BEAKER) 185 mg/dL 70-105 (test hfzs=919) CALCIUM (BEAKER) (test 8.7 mg/dL 8.4-10.2 kjft=965) EGFR (BEAKER) (test 12 mL/min/1.73 sq m ESTIMATED GFR IS NOT lxca=5195) ACCURATE CREATININE CLEARANCE IN PREDICTING GLOMERULAR FILTRATION RATE. ESTIMATED GFR IS NOT APPLICABLE FOR DIALYSIS PATIENTS. [id number] 06:47:00 Test Item Value Reference Range Comments MAGNESIUM (BEAKER) (test ebxu=495) 1.6 mg/dL 1.6-2.6 CBC W/PLT COUNT & AUTO [id number] 06:21:00 Test Item Value Reference Range Comments WHITE BLOOD CELL COUNT (BEAKER) (test gvfz=268) 8.5 K/ L 3.5-10.5 RED BLOOD CELL COUNT (BEAKER) (test epfc=660) 2.41 M/ L 3.93-5.22 HEMOGLOBIN (BEAKER) (test qxiq=973) 7.5 GM/DL 11.2-15.7 HEMATOCRIT (BEAKER) (test mifx=493) 23.4 % 34.1-44.9 MEAN CORPUSCULAR VOLUME (BEAKER) (test ylfa=279) 97.1 fL 79.4-94.8 MEAN CORPUSCULAR HEMOGLOBIN (BEAKER) (test 31.1 pg 25.6-32.2 ilak=037) MEAN CORPUSCULAR HEMOGLOBIN CONC (BEAKER) (test 32.1 GM/DL 32.2-35.5 exmy=776) RED CELL DISTRIBUTION WIDTH (BEAKER) (test 13.1 % 11.7-14.4 qgag=939) PLATELET COUNT (BEAKER) (test dztm=914) 200 K/CU MM 150-450 MEAN PLATELET VOLUME (BEAKER) (test qbsy=244) 12.8 fL 9.4-12.3 NUCLEATED RED BLOOD CELLS (BEAKER) (test 0 /100 WBC 0-0 apmi=964) NEUTROPHILS RELATIVE PERCENT (BEAKER) (test 72 % nzpe=416) LYMPHOCYTES RELATIVE PERCENT (BEAKER) (test 16 % eaed=160) MONOCYTES RELATIVE PERCENT (BEAKER) (test 7 % xrni=013) EOSINOPHILS RELATIVE PERCENT (BEAKER) (test 5 % htqn=160) BASOPHILS RELATIVE PERCENT (BEAKER) (test 1 % oesb=510) NEUTROPHILS ABSOLUTE COUNT (BEAKER) (test 6.09 K/ L 1.56-6.13 ombz=937) LYMPHOCYTES ABSOLUTE COUNT (BEAKER) (test 1.32 K/ L 1.18-3.74 zloz=709) MONOCYTES ABSOLUTE COUNT (BEAKER) (test 0.59 K/ L 0.24-0.36 lfcf=420) EOSINOPHILS ABSOLUTE COUNT (BEAKER) (test 0.39 K/ L 0.04-0.36 vlou=807) BASOPHILS ABSOLUTE COUNT (BEAKER) (test 0.04 K/ L 0.01-0.08 xcwx=970) IMMATURE GRANULOCYTES-RELATIVE PERCENT (BEAKER) 1 % 0-1 (test yckv=2943) POCT-GLUCOSE [id number] 21:03:00 Test Item Value Reference Range Comments POC-GLUCOSE METER (BEAKER) 179 mg/dL 70-110 TESTED AT [address] (test ciwf=0073) [place] [id number] POCT-GLUCOSE [id number] 17:36:00 Test Item Value Reference Range Comments POC-GLUCOSE METER (BEAKER) 184 mg/dL 70-110 TESTED AT [address] (test mxbi=2639) [facility] [address] POCT-GLUCOSE [id number] 17:15:00 Test Item Value Reference Range Comments POC-GLUCOSE METER (BEAKER) 196 mg/dL 70-110 TESTED AT [address] (test hzkt=3319) [facility] [address] POCT-GLUCOSE [id number] 12:00:00 Test Item Value Reference Range Comments POC-GLUCOSE METER (BEAKER) 179 mg/dL 70-110 TESTED AT [address] (test cimq=2561) [facility] [address] POCT-GLUCOSE [id number] 08:12:00 Test Item Value Reference Range Comments POC-GLUCOSE METER (BEAKER) 221 mg/dL 70-[address] [facility] [address] [facility] (test drsh=2161) [facility] [address] BASIC METABOLIC [id number] 07:21:00 Test Item Value Reference Range Comments SODIUM (BEAKER) (test 135 meq/L 136-145 zxrb=962) POTASSIUM (BEAKER) (test 4.5 meq/L 3.5-5.1 hwcp=491) CHLORIDE (BEAKER) (test 99 meq/L 98-107 bhpr=476) CO2 (BEAKER) (test 28 meq/L 22-29 aqol=564) BLOOD UREA NITROGEN 25 mg/dL 7-21 (BEAKER) (test brqu=782) CREATININE (BEAKER) (test 3.07 mg/dL 0.57-1.25 kfyo=284) GLUCOSE RANDOM (BEAKER) 192 mg/dL 70-105 (test nmww=944) CALCIUM (BEAKER) (test 8.5 mg/dL 8.4-10.2 ythq=481) EGFR (BEAKER) (test 15 mL/min/1.73 sq m ESTIMATED GFR IS NOT cmqw=9346) ACCURATE CREATININE CLEARANCE IN PREDICTING GLOMERULAR FILTRATION RATE. ESTIMATED GFR IS NOT APPLICABLE FOR DIALYSIS PATIENTS. [id number] 07:20:00 Test Item Value Reference Range Comments PHOSPHORUS (BEAKER) (test ljyn=947) 3.6 mg/dL 2.3-4.7 [id number] 07:20:00 Test Item Value Reference Range Comments MAGNESIUM (BEAKER) (test qkww=361) 1.7 mg/dL 1.6-2.6 CBC W/PLT COUNT & AUTO [id number] 07:04:00 Test Item Value Reference Range Comments WHITE BLOOD CELL COUNT (BEAKER) (test mgsz=274) 7.8 K/ L 3.5-10.5 RED BLOOD CELL COUNT (BEAKER) (test xsbw=749) 2.30 M/ L 3.93-5.22 HEMOGLOBIN (BEAKER) (test pmja=929) 7.1 GM/DL 11.2-15.7 HEMATOCRIT (BEAKER) (test fwaa=649) 22.7 % 34.1-44.9 MEAN CORPUSCULAR VOLUME (BEAKER) (test robf=779) 98.7 fL 79.4-94.8 MEAN CORPUSCULAR HEMOGLOBIN (BEAKER) (test 30.9 pg 25.6-32.2 igbz=150) MEAN CORPUSCULAR HEMOGLOBIN CONC (BEAKER) (test 31.3 GM/DL 32.2-35.5 yrzl=975) RED CELL DISTRIBUTION WIDTH (BEAKER) (test 13.3 % 11.7-14.4 ubaf=085) PLATELET COUNT (BEAKER) (test rieu=579) 206 K/CU MM 150-450 MEAN PLATELET VOLUME (BEAKER) (test dvvo=647) 12.8 fL 9.4-12.3 NUCLEATED RED BLOOD CELLS (BEAKER) (test 0 /100 WBC 0-0 lnui=862) NEUTROPHILS RELATIVE PERCENT (BEAKER) (test 64 % coom=590) LYMPHOCYTES RELATIVE PERCENT (BEAKER) (test 21 % wwih=000) MONOCYTES RELATIVE PERCENT (BEAKER) (test 8 % vfwh=567) EOSINOPHILS RELATIVE PERCENT (BEAKER) (test 6 % mpoc=994) BASOPHILS RELATIVE PERCENT (BEAKER) (test 1 % vwps=645) NEUTROPHILS ABSOLUTE COUNT (BEAKER) (test 5.00 K/ L 1.56-6.13 krrz=229) LYMPHOCYTES ABSOLUTE COUNT (BEAKER) (test 1.66 K/ L 1.18-3.74 dkyn=034) MONOCYTES ABSOLUTE COUNT (BEAKER) (test 0.65 K/ L 0.24-0.36 vlow=398) EOSINOPHILS ABSOLUTE COUNT (BEAKER) (test 0.44 K/ L 0.04-0.36 swwo=640) BASOPHILS ABSOLUTE COUNT (BEAKER) (test 0.05 K/ L 0.01-0.08 oejd=978) IMMATURE GRANULOCYTES-RELATIVE PERCENT (BEAKER) 1 % 0-1 (test dvbp=3322) POCT-GLUCOSE [id number] 21:03:00 Test Item Value Reference Range Comments POC-GLUCOSE METER (BEAKER) 243 mg/dL 70-110 TESTED AT [address] (test lxeb=4213) [place] [id number] POCT-GLUCOSE [id number] 18:12:00 Test Item Value Reference Range Comments POC-GLUCOSE METER (BEAKER) 233 mg/dL 70-110 TESTED AT [address] (test gpln=4054) [place] [address] POCT-GLUCOSE [id number] 12:29:00 Test Item Value Reference Range Comments POC-GLUCOSE METER (BEAKER) 185 mg/dL 70-[address] [facility] [address] [facility] (test qdpp=2406) [facility] [address] POCT-GLUCOSE [id number] 07:05:00 Test Item Value Reference Range Comments POC-GLUCOSE METER (BEAKER) 114 mg/dL 70-110 TESTED AT [place] [id number] [facility] (test wzmw=9662) [facility] [address] [id number] 06:33:00 Test Item Value Reference Range Comments PHOSPHORUS (BEAKER) (test ghhh=731) 2.6 mg/dL 2.3-4.7 [id number] 06:33:00 Test Item Value Reference Range Comments MAGNESIUM (BEAKER) (test qziu=833) 1.7 mg/dL 1.6-2.6 COMPREHENSIVE METABOLIC [id number] 06:33:00 Test Item Value Reference Range Comments TOTAL PROTEIN (BEAKER) 6.4 gm/dL 6.0-8.3 (test ubyr=849) ALBUMIN (BEAKER) (test 2.8 g/dL 3.5-5.0 xdps=3848) ALKALINE PHOSPHATASE 95 U/L 40-150 (BEAKER) (test qbjn=494) BILIRUBIN TOTAL (BEAKER) 0.2 mg/dL 0.2-1.2 (test zgnn=771) SODIUM (BEAKER) (test 138 meq/L 136-145 hgwd=982) POTASSIUM (BEAKER) (test 3.9 meq/L 3.5-5.1 gvmr=175) CHLORIDE (BEAKER) (test 102 meq/L 98-107 zhce=144) CO2 (BEAKER) (test 29 meq/L 22-29 kegr=160) BLOOD UREA NITROGEN 12 mg/dL 7-21 (BEAKER) (test xrmi=338) CREATININE (BEAKER) (test 2.08 mg/dL 0.57-1.25 wjwe=502) GLUCOSE RANDOM (BEAKER) 79 mg/dL 70-105 (test mznr=613) CALCIUM (BEAKER) (test 8.3 mg/dL 8.4-10.2 djzk=195) AST (SGOT) (BEAKER) (test 17 U/L 5-34 uxpg=240) ALT (SGPT) (BEAKER) (test 16 U/L 6-55 yzdz=416) EGFR (BEAKER) (test 24 mL/min/1.73 sq m ESTIMATED GFR IS NOT yjpl=3864) ACCURATE CREATININE CLEARANCE IN PREDICTING GLOMERULAR FILTRATION RATE. ESTIMATED GFR IS NOT APPLICABLE FOR DIALYSIS PATIENTS. CBC W/PLT COUNT & AUTO [id number] 06:13:00 Test Item Value Reference Range Comments WHITE BLOOD CELL COUNT (BEAKER) (test wzbn=846) 8.1 K/ L 3.5-10.5 RED BLOOD CELL COUNT (BEAKER) (test lmpj=291) 2.41 M/ L 3.93-5.22 HEMOGLOBIN (BEAKER) (test kczb=324) 7.4 GM/DL 11.2-15.7 HEMATOCRIT (BEAKER) (test iuow=504) 23.7 % 34.1-44.9 MEAN CORPUSCULAR VOLUME (BEAKER) (test sfdp=115) 98.3 fL 79.4-94.8 MEAN CORPUSCULAR HEMOGLOBIN (BEAKER) (test 30.7 pg 25.6-32.2 rqge=117) MEAN CORPUSCULAR HEMOGLOBIN CONC (BEAKER) (test 31.2 GM/DL 32.2-35.5 ocgb=362) RED CELL DISTRIBUTION WIDTH (BEAKER) (test 13.2 % 11.7-14.4 izwo=433) PLATELET COUNT (BEAKER) (test yrnh=919) 215 K/CU MM 150-450 MEAN PLATELET VOLUME (BEAKER) (test luqw=759) 12.5 fL 9.4-12.3 NUCLEATED RED BLOOD CELLS (BEAKER) (test 0 /100 WBC 0-0 mipx=384) NEUTROPHILS RELATIVE PERCENT (BEAKER) (test 63 % ftpz=699) LYMPHOCYTES RELATIVE PERCENT (BEAKER) (test 21 % kpmm=185) MONOCYTES RELATIVE PERCENT (BEAKER) (test 11 % qaeu=151) EOSINOPHILS RELATIVE PERCENT (BEAKER) (test 4 % poan=250) BASOPHILS RELATIVE PERCENT (BEAKER) (test 1 % cujm=804) NEUTROPHILS ABSOLUTE COUNT (BEAKER) (test 5.10 K/ L 1.56-6.13 juwg=089) LYMPHOCYTES ABSOLUTE COUNT (BEAKER) (test 1.71 K/ L 1.18-3.74 vdde=968) MONOCYTES ABSOLUTE COUNT (BEAKER) (test 0.85 K/ L 0.24-0.36 kkvw=110) EOSINOPHILS ABSOLUTE COUNT (BEAKER) (test 0.34 K/ L 0.04-0.36 gxln=769) BASOPHILS ABSOLUTE COUNT (BEAKER) (test 0.05 K/ L 0.01-0.08 ikui=690) IMMATURE GRANULOCYTES-RELATIVE PERCENT (BEAKER) 0 % 0-1 (test ajtk=0534) CALCIUM, [id number] 05:45:00 Test Item Value Reference Range Comments CALCIUM IONIZED (BEAKER) (test nuah=118) 1.04 mmol/L 1.12-1.27 PH, BLOOD (BEAKER) (test ypnr=8328) 7.45 POCT-GLUCOSE [id number] 21:16:00 Test Item Value Reference Range Comments POC-GLUCOSE METER (BEAKER) 193 mg/dL 70-110 TESTED AT [address] (test tqoz=0374) [facility] [address] POCT-GLUCOSE [id number] 18:58:00 Test Item Value Reference Range Comments POC-GLUCOSE METER (BEAKER) 158 mg/dL 70-110 TESTED AT [address] (test uarj=2599) [place] [id number] VITAMIN B12 AND [id number] 17:12:00 Test Item Value Reference Range Comments VITAMIN B12 (BEAKER) (test slxm=987) 720 pg/mL 213-816 FOLATE (BEAKER) (test mqxk=421) 10.3 ng/mL >=7.0 [id number] 14:42:00 Test Item Value Reference Range Comments FERRITIN (BEAKER) (test bwmw=459) 265 ng/mL 5-275 IRON, TIBC, % SAT. (WITHOUT FERRITIN)[id number] 14:14:00 Test Item Value Reference Range Comments IRON (BEAKER) (test zhmk=456) 34 ug/dL 40-160 TOTAL IRON BINDING CAPACITY (BEAKER) (test 178 ug/dL 250-450 ymlj=826) IRON % SATURATION (2) (BEAKER) (test gduu=5691) 19 % 20-55 POCT-GLUCOSE [id number] 12:25:00 Test Item Value Reference Range Comments POC-GLUCOSE METER (BEAKER) 264 mg/dL 70-[address] [facility] [address] [facility] (test bvyo=0682) [facility] [address] POCT-GLUCOSE [id number] 08:00:00 Test Item Value Reference Range Comments POC-GLUCOSE METER (BEAKER) 181 mg/dL 70-[address] [facility] [address] [facility] (test srro=3169) [facility] [address] BASIC METABOLIC [id number] 06:49:00 Test Item Value Reference Range Comments SODIUM (BEAKER) (test 137 meq/L 136-145 crih=788) POTASSIUM (BEAKER) (test 3.6 meq/L 3.5-5.1 eqoc=734) CHLORIDE (BEAKER) (test 100 meq/L 98-107 zbnt=226) CO2 (BEAKER) (test 30 meq/L 22-29 emlu=783) BLOOD UREA NITROGEN 22 mg/dL 7-21 (BEAKER) (test kgrp=339) CREATININE (BEAKER) (test 2.53 mg/dL 0.57-1.25 dkvs=762) GLUCOSE RANDOM (BEAKER) 168 mg/dL 70-105 (test qlmi=569) CALCIUM (BEAKER) (test 8.0 mg/dL 8.4-10.2 jsok=850) EGFR (BEAKER) (test 19 mL/min/1.73 sq m ESTIMATED GFR IS NOT eqgm=0265) ACCURATE CREATININE CLEARANCE IN PREDICTING GLOMERULAR FILTRATION RATE. ESTIMATED GFR IS NOT APPLICABLE FOR DIALYSIS PATIENTS. [id number] 06:37:00 Test Item Value Reference Range Comments PHOSPHORUS (BEAKER) (test uuvo=967) 2.9 mg/dL 2.3-4.7 [id number] 06:37:00 Test Item Value Reference Range Comments MAGNESIUM (BEAKER) (test iaah=538) 1.8 mg/dL 1.6-2.6 CBC W/PLT COUNT & AUTO [id number] 06:19:00 Test Item Value Reference Range Comments WHITE BLOOD CELL COUNT (BEAKER) (test yssr=024) 7.6 K/ L 3.5-10.5 RED BLOOD CELL COUNT (BEAKER) (test hmjp=742) 2.30 M/ L 3.93-5.22 HEMOGLOBIN (BEAKER) (test baat=458) 7.0 GM/DL 11.2-15.7 HEMATOCRIT (BEAKER) (test oqvz=020) 22.3 % 34.1-44.9 MEAN CORPUSCULAR VOLUME (BEAKER) (test mhrd=461) 97.0 fL 79.4-94.8 MEAN CORPUSCULAR HEMOGLOBIN (BEAKER) (test 30.4 pg 25.6-32.2 oeyc=005) MEAN CORPUSCULAR HEMOGLOBIN CONC (BEAKER) (test 31.4 GM/DL 32.2-35.5 jlti=231) RED CELL DISTRIBUTION WIDTH (BEAKER) (test 13.2 % 11.7-14.4 xilu=749) PLATELET COUNT (BEAKER) (test kabr=565) 214 K/CU MM 150-450 MEAN PLATELET VOLUME (BEAKER) (test twiq=948) 12.4 fL 9.4-12.3 NUCLEATED RED BLOOD CELLS (BEAKER) (test 0 /100 WBC 0-0 aknj=176) NEUTROPHILS RELATIVE PERCENT (BEAKER) (test 65 % vran=048) LYMPHOCYTES RELATIVE PERCENT (BEAKER) (test 20 % rbof=074) MONOCYTES RELATIVE PERCENT (BEAKER) (test 10 % mtio=741) EOSINOPHILS RELATIVE PERCENT (BEAKER) (test 3 % gdxa=092) BASOPHILS RELATIVE PERCENT (BEAKER) (test 0 % msya=098) NEUTROPHILS ABSOLUTE COUNT (BEAKER) (test 4.97 K/ L 1.56-6.13 lola=427) LYMPHOCYTES ABSOLUTE COUNT (BEAKER) (test 1.54 K/ L 1.18-3.74 vsjj=588) MONOCYTES ABSOLUTE COUNT (BEAKER) (test 0.79 K/ L 0.24-0.36 tezc=562) EOSINOPHILS ABSOLUTE COUNT (BEAKER) (test 0.26 K/ L 0.04-0.36 nkhp=141) BASOPHILS ABSOLUTE COUNT (BEAKER) (test 0.03 K/ L 0.01-0.08 nwej=062) IMMATURE GRANULOCYTES-RELATIVE PERCENT (BEAKER) 1 % 0-1 (test ddjv=7994) POCT-GLUCOSE [id number] 21:09:00 Test Item Value Reference Range Comments POC-GLUCOSE METER (BEAKER) 181 mg/dL 70-[address] [facility] [address] [facility] (test ammg=3834) [facility] [address] POCT-GLUCOSE [id number] 20:36:00 Test Item Value Reference Range Comments POC-GLUCOSE METER (BEAKER) 231 mg/dL 70-110 TESTED AT [place] [id number] [facility] (test pwsi=7761) [facility] [address] POCT-GLUCOSE [id number] 12:46:00 Test Item Value Reference Range Comments POC-GLUCOSE METER (BEAKER) 180 mg/dL 70-110 TESTED AT [address] (test jlam=2772) [place] [id number] POCT-GLUCOSE [id number] 08:22:00 Test Item Value Reference Range Comments POC-GLUCOSE METER (BEAKER) 157 mg/dL 70-110 TESTED AT [address] (test jyhe=0523) [facility] [id number] BASIC METABOLIC [id number] 07:18:00 Test Item Value Reference Range Comments SODIUM (BEAKER) (test 136 meq/L 136-145 blwy=906) POTASSIUM (BEAKER) (test 3.5 meq/L 3.5-5.1 lpra=273) CHLORIDE (BEAKER) (test 97 meq/L 98-107 gmef=009) CO2 (BEAKER) (test 26 meq/L 22-29 kphl=031) BLOOD UREA NITROGEN 46 mg/dL 7-21 (BEAKER) (test vgyl=264) CREATININE (BEAKER) (test 3.60 mg/dL 0.57-1.25 hndx=452) GLUCOSE RANDOM (BEAKER) 129 mg/dL 70-105 (test geby=724) CALCIUM (BEAKER) (test 8.1 mg/dL 8.4-10.2 fnjn=316) EGFR (BEAKER) (test 13 mL/min/1.73 sq m ESTIMATED GFR IS NOT jutz=3731) ACCURATE CREATININE CLEARANCE IN PREDICTING GLOMERULAR FILTRATION RATE. ESTIMATED GFR IS NOT APPLICABLE FOR DIALYSIS PATIENTS. [id number] 07:11:00 Test Item Value Reference Range Comments PHOSPHORUS (BEAKER) (test vpji=301) 5.1 mg/dL 2.3-4.7 [id number] 07:11:00 Test Item Value Reference Range Comments MAGNESIUM (BEAKER) (test uvqb=865) 1.8 mg/dL 1.6-2.6 CALCIUM, [id number] 06:46:00 Test Item Value Reference Range Comments CALCIUM IONIZED (BEAKER) (test tdsr=956) 0.99 mmol/L 1.12-1.27 PH, BLOOD (BEAKER) (test kxwp=3069) 7.43 CBC W/PLT COUNT & AUTO [id number] 06:43:00 Test Item Value Reference Range Comments WHITE BLOOD CELL COUNT (BEAKER) (test gqxy=671) 7.2 K/ L 3.5-10.5 RED BLOOD CELL COUNT (BEAKER) (test iewt=210) 2.48 M/ L 3.93-5.22 HEMOGLOBIN (BEAKER) (test zdvk=002) 7.5 GM/DL 11.2-15.7 HEMATOCRIT (BEAKER) (test kuzv=990) 23.5 % 34.1-44.9 MEAN CORPUSCULAR VOLUME (BEAKER) (test coia=171) 94.8 fL 79.4-94.8 MEAN CORPUSCULAR HEMOGLOBIN (BEAKER) (test 30.2 pg 25.6-32.2 gjmn=075) MEAN CORPUSCULAR HEMOGLOBIN CONC (BEAKER) (test 31.9 GM/DL 32.2-35.5 xhau=254) RED CELL DISTRIBUTION WIDTH (BEAKER) (test 13.0 % 11.7-14.4 yuyc=515) PLATELET COUNT (BEAKER) (test kuak=541) 233 K/CU MM 150-450 MEAN PLATELET VOLUME (BEAKER) (test ejym=500) 12.5 fL 9.4-12.3 NUCLEATED RED BLOOD CELLS (BEAKER) (test 0 /100 WBC 0-0 dgxo=642) NEUTROPHILS RELATIVE PERCENT (BEAKER) (test 66 % jpqo=765) LYMPHOCYTES RELATIVE PERCENT (BEAKER) (test 18 % ngxf=941) MONOCYTES RELATIVE PERCENT (BEAKER) (test 12 % ilnj=067) EOSINOPHILS RELATIVE PERCENT (BEAKER) (test 3 % pqvk=265) BASOPHILS RELATIVE PERCENT (BEAKER) (test 1 % xyza=915) NEUTROPHILS ABSOLUTE COUNT (BEAKER) (test 4.73 K/ L 1.56-6.13 lhjd=906) LYMPHOCYTES ABSOLUTE COUNT (BEAKER) (test 1.33 K/ L 1.18-3.74 tyhb=428) MONOCYTES ABSOLUTE COUNT (BEAKER) (test 0.89 K/ L 0.24-0.36 xlun=521) EOSINOPHILS ABSOLUTE COUNT (BEAKER) (test 0.19 K/ L 0.04-0.36 rsdp=269) BASOPHILS ABSOLUTE COUNT (BEAKER) (test 0.05 K/ L 0.01-0.08 xrun=888) IMMATURE GRANULOCYTES-RELATIVE PERCENT (BEAKER) 0 % 0-1 (test arkc=4038) BLOOD [id number] 00:00:00 Test Item Value Reference Range Comments CULTURE (BEAKER) (test ywnc=4910) No growth in 5 days BLOOD [id number] 00:00:00 Test Item Value Reference Range Comments CULTURE (BEAKER) (test xfrt=8186) No growth in 5 days HEPATITIS B [id number] 20:32:00 Test Item Value Reference Range Comments HEPATITIS B CORE TOTAL ANTIBODY (BEAKER) (test Nonreactive Nonreactive vmfs=841) HEPATITIS B SURFACE ANTIBODY (BEAKER) (test 20.3 mIU/mL <8.0 vwrv=102) HEPATITIS B SURFACE ANTIGEN (2) (BEAKER) (test Nonreactive Nonreactive frov=6538) POCT-GLUCOSE [id number] 18:59:00 Test Item Value Reference Range Comments POC-GLUCOSE METER (BEAKER) 146 mg/dL 70-110 TESTED AT [address] (test awmy=2160) [facility] [address] ANG, NON-TUNNELED CATH >5 Y.O. [id number] 16:28:00Reason for exam:-> need hdFINAL REPORT Procedure: [...] MDReport Verified Date/Time: 2017 16:28:37 Reading Location: [place] [id number] Angio Body Reading Room EOSINOPHIL SMEAR, [id number] 08:57:00 Test Item Value Reference Range Comments EOSINOPHIL SMEAR, URINE (BEAKER) Rare EOS=less than 5% WBCs No EOS seen (test lebp=4149) seen are EOS POCT-GLUCOSE [id number] 07:29:00 Test Item Value Reference Range Comments POC-GLUCOSE METER (BEAKER) 143 mg/dL 70-110 TESTED AT [address] (test odwq=1234) [facility] [address] PROTHROMBIN [id number] 06:24:00 Test Item Value Reference Range Comments PROTIME (BEAKER) (test nxki=463) 16.0 seconds 11.7-14.7 INR (BEAKER) (test keoq=114) 1.3 <=5.9 RECOMMENDED COUMADIN/WARFARIN INR THERAPY RANGESSTANDARD DOSE: 2.0 - 3.0 Includes: PROPHYLAXIS forvenous thrombosis, systemic embolization; TREATMENT for venous thrombosis and/or pulmonary embolus.HIGH RISK: Target INR is 2.5-3.5 for patients with mechanical heart valves.[id number] 06:18:00 Test Item Value Reference Range Comments PHOSPHORUS (BEAKER) (test wgee=843) 9.4 mg/dL 2.3-4.7 [id number] 06:14:00 Test Item Value Reference Range Comments MAGNESIUM (BEAKER) (test ulbt=668) 2.0 mg/dL 1.6-2.6 CREATINE KINASE (CK)2018-02-06 06:14:00 Test Item Value Reference Range Comments CREATINE KINASE TOTAL (BEAKER) (test tiqr=937) 21 U/L 29-200 COMPREHENSIVE METABOLIC [id number] 06:14:00 Test Item Value Reference Range Comments TOTAL PROTEIN (BEAKER) 6.3 gm/dL 6.0-8.3 (test irkb=224) ALBUMIN (BEAKER) (test 2.7 g/dL 3.5-5.0 sfwe=4457) ALKALINE PHOSPHATASE 101 U/L 40-150 (BEAKER) (test xtek=182) BILIRUBIN TOTAL (BEAKER) 0.3 mg/dL 0.2-1.2 (test qtnm=586) SODIUM (BEAKER) (test 135 meq/L 136-145 foeb=489) POTASSIUM (BEAKER) (test 3.8 meq/L 3.5-5.1 jhia=034) CHLORIDE (BEAKER) (test 91 meq/L 98-107 mopi=213) CO2 (BEAKER) (test 28 meq/L 22-29 dlpz=085) BLOOD UREA NITROGEN 92 mg/dL 7-21 (BEAKER) (test ehgt=904) CREATININE (BEAKER) (test 5.56 mg/dL 0.57-1.25 aavb=794) GLUCOSE RANDOM (BEAKER) 137 mg/dL 70-105 (test lbpd=997) CALCIUM (BEAKER) (test 8.4 mg/dL 8.4-10.2 oewz=986) AST (SGOT) (BEAKER) (test 11 U/L 5-34 uxiv=701) ALT (SGPT) (BEAKER) (test 10 U/L 6-55 ckqp=549) EGFR (BEAKER) (test 8 mL/min/1.73 sq m ESTIMATED GFR IS NOT obng=3981) ACCURATE CREATININE CLEARANCE IN PREDICTING GLOMERULAR FILTRATION RATE. ESTIMATED GFR IS NOT APPLICABLE FOR DIALYSIS PATIENTS. B-TYPE NATRIURETIC FACTOR (BNP)2018-02-06 06:13:00 Test Item Value Reference Range Comments B-TYPE NATRIURETIC PEPTIDE (BEAKER) (test 757 pg/mL 0-100 gotk=792) CALCIUM, [id number] 05:59:00 Test Item Value Reference Range Comments CALCIUM IONIZED (BEAKER) (test owlx=392) 0.97 mmol/L 1.12-1.27 PH, BLOOD (BEAKER) (test ixlm=9006) 7.42 CBC W/PLT COUNT & AUTO [id number] 05:50:00 Test Item Value Reference Range Comments WHITE BLOOD CELL COUNT (BEAKER) (test ixez=399) 6.5 K/ L 3.5-10.5 RED BLOOD CELL COUNT (BEAKER) (test vazn=650) 2.54 M/ L 3.93-5.22 HEMOGLOBIN (BEAKER) (test nvfg=574) 7.8 GM/DL 11.2-15.7 HEMATOCRIT (BEAKER) (test htji=586) 23.4 % 34.1-44.9 MEAN CORPUSCULAR VOLUME (BEAKER) (test obea=228) 92.1 fL 79.4-94.8 MEAN CORPUSCULAR HEMOGLOBIN (BEAKER) (test 30.7 pg 25.6-32.2 kjpc=560) MEAN CORPUSCULAR HEMOGLOBIN CONC (BEAKER) (test 33.3 GM/DL 32.2-35.5 ppvl=045) RED CELL DISTRIBUTION WIDTH (BEAKER) (test 12.8 % 11.7-14.4 zcsh=481) PLATELET COUNT (BEAKER) (test hous=868) 244 K/CU MM 150-450 MEAN PLATELET VOLUME (BEAKER) (test beah=803) 12.3 fL 9.4-12.3 NUCLEATED RED BLOOD CELLS (BEAKER) (test 0 /100 WBC 0-0 gcyv=201) NEUTROPHILS RELATIVE PERCENT (BEAKER) (test 70 % njlv=201) LYMPHOCYTES RELATIVE PERCENT (BEAKER) (test 17 % uvgx=894) MONOCYTES RELATIVE PERCENT (BEAKER) (test 10 % ljpp=015) EOSINOPHILS RELATIVE PERCENT (BEAKER) (test 3 % dbnm=283) BASOPHILS RELATIVE PERCENT (BEAKER) (test 1 % imdb=504) NEUTROPHILS ABSOLUTE COUNT (BEAKER) (test 4.56 K/ L 1.56-6.13 hjkd=768) LYMPHOCYTES ABSOLUTE COUNT (BEAKER) (test 1.08 K/ L 1.18-3.74 zxcf=483) MONOCYTES ABSOLUTE COUNT (BEAKER) (test 0.65 K/ L 0.24-0.36 vktc=500) EOSINOPHILS ABSOLUTE COUNT (BEAKER) (test 0.17 K/ L 0.04-0.36 foun=918) BASOPHILS ABSOLUTE COUNT (BEAKER) (test 0.05 K/ L 0.01-0.08 vlhk=110) IMMATURE GRANULOCYTES-RELATIVE PERCENT (BEAKER) 1 % 0-1 (test ikmp=2552) URINALYSIS W/ [id number] 02:20:00 Test Item Value Reference Range Comments COLOR (BEAKER) (test rwdn=790) Light Yellow CLARITY (BEAKER) (test uvjj=587) Clear SPECIFIC GRAVITY UA (BEAKER) (test yqer=543) 1.008 1.001-1.035 PH UA (BEAKER) (test ffvy=064) 6.5 5.0-8.0 PROTEIN UA (BEAKER) (test anvn=212) 70 mg/dL Negative GLUCOSE UA (BEAKER) (test cpqx=058) 50 mg/dL Negative KETONES UA (BEAKER) (test lrtm=674) Trace Negative BILIRUBIN UA (BEAKER) (test ehmb=246) Negative Negative BLOOD UA (BEAKER) (test cemc=830) Negative Negative NITRITE UA (BEAKER) (test jblj=079) Negative Negative LEUKOCYTE ESTERASE UA (BEAKER) (test gucy=524) Moderate Negative UROBILINOGEN UA (BEAKER) (test tups=531) 0.2 mg/dL 0.2-1.0 RBC UA (BEAKER) (test ihof=126) 2 /HPF WBC UA (BEAKER) (test lurl=351) 21 /HPF BACTERIA (BEAKER) (test tfel=568) Occasional MUCUS (BEAKER) (test tppj=7111) Rare SQUAMOUS EPITHELIAL (BEAKER) (test dnic=542) 1 /HPF HYALINE CASTS (BEAKER) (test zvsp=559) 1 /LPF GRANULAR CASTS (BEAKER) (test qcnr=985) 1 /LPF YEAST (BEAKER) (test wpzy=8887) Occasional SOURCE(BEAKER) (test gmhe=4894) Urine, Byrd CREATININE, RANDOM [id number] 01:22:00 Test Item Value Reference Range Comments CREATININE URINE (BEAKER) (test exvw=000) 28.2 mg/dL Reference Range: No NormalsPROTEIN, RANDOM [id number] 01:22:00 Test Item Value Reference Range Comments PROTEIN, URINE (BEAKER) (test nzvr=5218) 80 mg/dL 0-14 SODIUM, RANDOM [id number] 01:22:00 Test Item Value Reference Range Comments SODIUM URINE (BEAKER) (test rnsp=445) 65 meq/L Reference Range: No NormalsPOCT-GLUCOSE [id number] 22:17:00 Test Item Value Reference Range Comments POC-GLUCOSE METER (BEAKER) 162 mg/dL 70-110 TESTED AT [address] (test xklu=3318) [place] [address] RAD, CHEST, 1 VIEW, NON [id number] 20:31:00Reason for exam:->edemaShould this be performed at [...] Verified Date/ Time: 02/05/2018 20:31:31 Reading Location: [address] Consult Reading Room POCT- GLUCOSE [id number] 17:16:00 Test Item Value Reference Range Comments POC-GLUCOSE METER (BEAKER) 204 mg/dL 70-110 TESTED AT [address] (test tmkc=7194) [place] [id number] POCT-GLUCOSE [id number] 12:28:00 Test Item Value Reference Range Comments POC-GLUCOSE METER (BEAKER) 214 mg/dL 70-110 TESTED AT [address] (test vdtd=9482) [place] [id number] BASIC METABOLIC [id number] 07:47:00 Test Item Value Reference Range Comments SODIUM (BEAKER) (test 133 meq/L 136-145 xkpy=199) POTASSIUM (BEAKER) (test 4.3 meq/L 3.5-5.1 hcke=668) CHLORIDE (BEAKER) (test 93 meq/L 98-107 xbhi=684) CO2 (BEAKER) (test 22 meq/L 22-29 twcx=035) BLOOD UREA NITROGEN 97 mg/dL 7-21 (BEAKER) (test agji=434) CREATININE (BEAKER) (test 5.21 mg/dL 0.57-1.25 ylfx=260) GLUCOSE RANDOM (BEAKER) 152 mg/dL 70-105 (test puac=427) CALCIUM (BEAKER) (test 8.3 mg/dL 8.4-10.2 yivr=686) EGFR (BEAKER) (test 8 mL/min/1.73 sq m ESTIMATED GFR IS NOT cojf=1322) ACCURATE CREATININE CLEARANCE IN PREDICTING GLOMERULAR FILTRATION RATE. ESTIMATED GFR IS NOT APPLICABLE FOR DIALYSIS PATIENTS. POCT-GLUCOSE [id number] 07:32:00 Test Item Value Reference Range Comments POC-GLUCOSE METER (BEAKER) 172 mg/dL 70-[address] [facility] [address] [facility] (test ytvv=3528) [facility] [address] [id number] 07:24:00 Test Item Value Reference Range Comments MAGNESIUM (BEAKER) (test wppk=512) 2.0 mg/dL 1.6-2.6 CBC W/PLT COUNT & AUTO [id number] 07:07:00 Test Item Value Reference Range Comments WHITE BLOOD CELL COUNT (BEAKER) (test jslm=460) 5.9 K/ L 3.5-10.5 RED BLOOD CELL COUNT (BEAKER) (test ppgj=305) 2.49 M/ L 3.93-5.22 HEMOGLOBIN (BEAKER) (test ytul=990) 7.7 GM/DL 11.2-15.7 HEMATOCRIT (BEAKER) (test fxie=189) 23.0 % 34.1-44.9 MEAN CORPUSCULAR VOLUME (BEAKER) (test bshg=479) 92.4 fL 79.4-94.8 MEAN CORPUSCULAR HEMOGLOBIN (BEAKER) (test 30.9 pg 25.6-32.2 nwld=307) MEAN CORPUSCULAR HEMOGLOBIN CONC (BEAKER) (test 33.5 GM/DL 32.2-35.5 oqml=244) RED CELL DISTRIBUTION WIDTH (BEAKER) (test 12.7 % 11.7-14.4 trkf=503) PLATELET COUNT (BEAKER) (test ipok=255) 251 K/CU MM 150-450 MEAN PLATELET VOLUME (BEAKER) (test igmd=729) 12.1 fL 9.4-12.3 NUCLEATED RED BLOOD CELLS (BEAKER) (test 0 /100 WBC 0-0 jymc=232) NEUTROPHILS RELATIVE PERCENT (BEAKER) (test 66 % oaza=660) LYMPHOCYTES RELATIVE PERCENT (BEAKER) (test 21 % bhxd=404) MONOCYTES RELATIVE PERCENT (BEAKER) (test 11 % xkld=112) EOSINOPHILS RELATIVE PERCENT (BEAKER) (test 2 % xlyk=555) BASOPHILS RELATIVE PERCENT (BEAKER) (test 1 % jrlf=849) NEUTROPHILS ABSOLUTE COUNT (BEAKER) (test 3.87 K/ L 1.56-6.13 smic=653) LYMPHOCYTES ABSOLUTE COUNT (BEAKER) (test 1.23 K/ L 1.18-3.74 juhy=257) MONOCYTES ABSOLUTE COUNT (BEAKER) (test 0.63 K/ L 0.24-0.36 igni=769) EOSINOPHILS ABSOLUTE COUNT (BEAKER) (test 0.12 K/ L 0.04-0.36 nbre=252) BASOPHILS ABSOLUTE COUNT (BEAKER) (test 0.05 K/ L 0.01-0.08 kzgy=867) IMMATURE GRANULOCYTES-RELATIVE PERCENT (BEAKER) 0 % 0-1 (test wwpr=3693) POCT-GLUCOSE [id number] 20:54:00 Test Item Value Reference Range Comments POC-GLUCOSE METER (BEAKER) 172 mg/dL 70-110 TESTED AT [address] (test vjdz=7850) [facility] [address] POCT-GLUCOSE [id number] 18:59:00 Test Item Value Reference Range Comments POC-GLUCOSE METER (BEAKER) 182 mg/dL 70-110 TESTED AT [address] (test hvaj=6639) [facility] [address] POCT-GLUCOSE [id number] 13:26:00 Test Item Value Reference Range Comments POC-GLUCOSE METER (BEAKER) 213 mg/dL 70-110 TESTED AT [address] (test nuzm=0200) [facility] [address] POCT-GLUCOSE [id number] 08:37:00 Test Item Value Reference Range Comments POC-GLUCOSE METER (BEAKER) 192 mg/dL 70-110 TESTED AT [address] (test lywd=4458) [facility] [address] BASIC METABOLIC [id number] 06:57:00 Test Item Value Reference Range Comments SODIUM (BEAKER) (test 130 meq/L 136-145 agow=010) POTASSIUM (BEAKER) (test 4.6 meq/L 3.5-5.1 xpgq=176) CHLORIDE (BEAKER) (test 95 meq/L 98-107 uify=540) CO2 (BEAKER) (test 22 meq/L 22-29 fvcd=837) BLOOD UREA NITROGEN 98 mg/dL 7-21 (BEAKER) (test mmix=211) CREATININE (BEAKER) (test 4.85 mg/dL 0.57-1.25 ucny=286) GLUCOSE RANDOM (BEAKER) 172 mg/dL 70-105 (test lrxc=618) CALCIUM (BEAKER) (test 8.1 mg/dL 8.4-10.2 jcri=290) EGFR (BEAKER) (test 9 mL/min/1.73 sq m ESTIMATED GFR IS NOT aapv=3840) ACCURATE CREATININE CLEARANCE IN PREDICTING GLOMERULAR FILTRATION RATE. ESTIMATED GFR IS NOT APPLICABLE FOR DIALYSIS PATIENTS. [id number] 06:52:00 Test Item Value Reference Range Comments MAGNESIUM (BEAKER) (test lsbd=499) 2.0 mg/dL 1.6-2.6 CBC W/PLT COUNT & AUTO [id number] 06:52:00 Test Item Value Reference Range Comments WHITE BLOOD CELL COUNT (BEAKER) (test eyrd=259) 5.5 K/ L 3.5-10.5 RED BLOOD CELL COUNT (BEAKER) (test piiz=046) 2.36 M/ L 3.93-5.22 HEMOGLOBIN (BEAKER) (test bpdm=594) 7.2 GM/DL 11.2-15.7 HEMATOCRIT (BEAKER) (test hamr=093) 21.9 % 34.1-44.9 MEAN CORPUSCULAR VOLUME (BEAKER) (test lrgt=036) 92.8 fL 79.4-94.8 MEAN CORPUSCULAR HEMOGLOBIN (BEAKER) (test 30.5 pg 25.6-32.2 zytp=895) MEAN CORPUSCULAR HEMOGLOBIN CONC (BEAKER) (test 32.9 GM/DL 32.2-35.5 ivag=095) RED CELL DISTRIBUTION WIDTH (BEAKER) (test 13.0 % 11.7-14.4 wdcc=150) PLATELET COUNT (BEAKER) (test vwid=441) 242 K/CU MM 150-450 MEAN PLATELET VOLUME (BEAKER) (test dvrl=238) 11.8 fL 9.4-12.3 NUCLEATED RED BLOOD CELLS (BEAKER) (test 0 /100 WBC 0-0 hzxo=385) NEUTROPHILS RELATIVE PERCENT (BEAKER) (test 56 % gglp=082) LYMPHOCYTES RELATIVE PERCENT (BEAKER) (test 26 % rjzx=685) MONOCYTES RELATIVE PERCENT (BEAKER) (test 12 % vdbj=458) EOSINOPHILS RELATIVE PERCENT (BEAKER) (test 6 % gpas=392) BASOPHILS RELATIVE PERCENT (BEAKER) (test 1 % xjzh=333) NEUTROPHILS ABSOLUTE COUNT (BEAKER) (test 3.07 K/ L 1.56-6.13 lwvb=065) LYMPHOCYTES ABSOLUTE COUNT (BEAKER) (test 1.45 K/ L 1.18-3.74 gxdo=612) MONOCYTES ABSOLUTE COUNT (BEAKER) (test 0.64 K/ L 0.24-0.36 hhng=821) EOSINOPHILS ABSOLUTE COUNT (BEAKER) (test 0.31 K/ L 0.04-0.36 wsin=850) BASOPHILS ABSOLUTE COUNT (BEAKER) (test 0.04 K/ L 0.01-0.08 ioen=713) IMMATURE GRANULOCYTES-RELATIVE PERCENT (BEAKER) 0 % 0-1 (test mjwu=5128) POCT-GLUCOSE [id number] 21:09:00 Test Item Value Reference Range Comments POC-GLUCOSE METER (BEAKER) 217 mg/dL 70-110 TESTED AT [address] (test fnnz=7848) [place] [id number] POCT-GLUCOSE [id number] 17:47:00 Test Item Value Reference Range Comments POC-GLUCOSE METER (BEAKER) 172 mg/dL 70-110 TESTED AT [address] (test wcpj=1958) [place] [id number] POCT-GLUCOSE [id number] 12:22:00 Test Item Value Reference Range Comments POC-GLUCOSE METER (BEAKER) 228 mg/dL 70-110 TESTED AT [address] (test qiqd=4807) [place] [address] VANCOMYCIN LEVEL, [id number] 12:13:00 Test Item Value Reference Range Comments VANCOMYCIN RANDOM (BEAKER) (test ygun=254) 20.7 ug/mL Reference Range: No NormalsB-TYPE NATRIURETIC FACTOR (BNP)2018-02-03 12:11:00 Test Item Value Reference Range Comments B-TYPE NATRIURETIC PEPTIDE (BEAKER) (test 434 pg/mL 0-100 htnw=606) U/S, RENAL WITH [id number] 11:13:00Reason for exam:->renal failureFINAL REPORT Renal ultrasound [...] MDReport Verified Date/Time: 02/03/2018 11:13:52 Reading Location: [facility] C013Y [place] Body Reading Room POCT-GLUCOSE [id number] 09:01:00 Test Item Value Reference Range Comments POC-GLUCOSE METER (BEAKER) 168 mg/dL 70-[address] [facility] [address] [place] [address] (test kdli=4345) [facility] [address] BASIC METABOLIC [id number] 07:10:00 Test Item Value Reference Range Comments SODIUM (BEAKER) (test 128 meq/L 136-145 vqpd=891) POTASSIUM (BEAKER) (test 5.0 meq/L 3.5-5.1 vhcx=352) CHLORIDE (BEAKER) (test 100 meq/L 98-107 xgmm=138) CO2 (BEAKER) (test 15 meq/L 22-29 cgzs=632) BLOOD UREA NITROGEN 98 mg/dL 7-21 (BEAKER) (test wnvr=559) CREATININE (BEAKER) (test 4.23 mg/dL 0.57-1.25 ibio=487) GLUCOSE RANDOM (BEAKER) 163 mg/dL 70-105 (test seqy=085) CALCIUM (BEAKER) (test 8.1 mg/dL 8.4-10.2 agvu=537) EGFR (BEAKER) (test 11 mL/min/1.73 sq m ESTIMATED GFR IS NOT oscv=4540) ACCURATE CREATININE CLEARANCE IN PREDICTING GLOMERULAR FILTRATION RATE. ESTIMATED GFR IS NOT APPLICABLE FOR DIALYSIS PATIENTS. [id number] 07:08:00 Test Item Value Reference Range Comments MAGNESIUM (BEAKER) (test zvix=723) 2.1 mg/dL 1.6-2.6 CBC W/PLT COUNT & AUTO [id number] 05:55:00 Test Item Value Reference Range Comments WHITE BLOOD CELL COUNT (BEAKER) (test gztc=257) 6.6 K/ L 3.5-10.5 RED BLOOD CELL COUNT (BEAKER) (test fdoc=030) 2.58 M/ L 3.93-5.22 HEMOGLOBIN (BEAKER) (test beul=431) 8.0 GM/DL 11.2-15.7 HEMATOCRIT (BEAKER) (test mwva=339) 24.6 % 34.1-44.9 MEAN CORPUSCULAR VOLUME (BEAKER) (test jesk=253) 95.3 fL 79.4-94.8 MEAN CORPUSCULAR HEMOGLOBIN (BEAKER) (test 31.0 pg 25.6-32.2 bbva=102) MEAN CORPUSCULAR HEMOGLOBIN CONC (BEAKER) (test 32.5 GM/DL 32.2-35.5 spnf=740) RED CELL DISTRIBUTION WIDTH (BEAKER) (test 13.0 % 11.7-14.4 ahrt=767) PLATELET COUNT (BEAKER) (test zvvh=642) 293 K/CU MM 150-450 MEAN PLATELET VOLUME (BEAKER) (test ttlc=367) 11.4 fL 9.4-12.3 NUCLEATED RED BLOOD CELLS (BEAKER) (test 0 /100 WBC 0-0 xree=785) NEUTROPHILS RELATIVE PERCENT (BEAKER) (test 60 % kulc=470) LYMPHOCYTES RELATIVE PERCENT (BEAKER) (test 24 % yykm=893) MONOCYTES RELATIVE PERCENT (BEAKER) (test 10 % cicd=863) EOSINOPHILS RELATIVE PERCENT (BEAKER) (test 5 % vhod=039) BASOPHILS RELATIVE PERCENT (BEAKER) (test 1 % blft=290) NEUTROPHILS ABSOLUTE COUNT (BEAKER) (test 3.96 K/ L 1.56-6.13 cvoc=398) LYMPHOCYTES ABSOLUTE COUNT (BEAKER) (test 1.58 K/ L 1.18-3.74 wxws=586) MONOCYTES ABSOLUTE COUNT (BEAKER) (test 0.68 K/ L 0.24-0.36 ykah=110) EOSINOPHILS ABSOLUTE COUNT (BEAKER) (test 0.30 K/ L 0.04-0.36 zvbh=260) BASOPHILS ABSOLUTE COUNT (BEAKER) (test 0.04 K/ L 0.01-0.08 quhf=362) IMMATURE GRANULOCYTES-RELATIVE PERCENT (BEAKER) 1 % 0-1 (test nvvy=5433) POCT-GLUCOSE [id number] 21:31:00 Test Item Value Reference Range Comments POC-GLUCOSE METER (BEAKER) 230 mg/dL 70-110 TESTED AT [address] (test dhde=4084) [place] [id number] POCT-GLUCOSE [id number] 17:21:00 Test Item Value Reference Range Comments POC-GLUCOSE METER (BEAKER) 178 mg/dL 70-110 TESTED AT [address] (test mlqr=3132) [place] [id number] SODIUM, RANDOM [id number] 16:59:00 Test Item Value Reference Range Comments SODIUM URINE (BEAKER) (test qjia=505) 41 meq/L Reference Range: No NormalsCREATININE, RANDOM [id number] 16:58:00 Test Item Value Reference Range Comments CREATININE URINE (BEAKER) (test qojx=078) 36.7 mg/dL Reference Range: No NormalsURINALYSIS W/ [id number] 15:32:00 Test Item Value Reference Range Comments COLOR (BEAKER) (test hcis=213) Light Yellow CLARITY (BEAKER) (test xnyb=850) Hazy SPECIFIC GRAVITY UA (BEAKER) (test iexc=782) 1.010 1.001-1.035 PH UA (BEAKER) (test wxmz=747) 5.5 5.0-8.0 PROTEIN UA (BEAKER) (test pspj=573) 100 mg/dL Negative GLUCOSE UA (BEAKER) (test zkfj=369) 70 mg/dL Negative KETONES UA (BEAKER) (test aszc=004) Negative Negative BILIRUBIN UA (BEAKER) (test moco=445) Negative Negative BLOOD UA (BEAKER) (test pfoc=141) Small Negative NITRITE UA (BEAKER) (test ykyj=314) Negative Negative LEUKOCYTE ESTERASE UA (BEAKER) (test homt=054) Large Negative UROBILINOGEN UA (BEAKER) (test jyxd=288) 0.2 mg/dL 0.2-1.0 RBC UA (BEAKER) (test vekd=641) 1 /HPF WBC UA (BEAKER) (test soeb=057) 54 /HPF SQUAMOUS EPITHELIAL (BEAKER) (test csbr=757) < /HPF SOURCE(BEAKER) (test deaa=5519) Urine, Byrd POCT-GLUCOSE [id number] 11:31:00 Test Item Value Reference Range Comments POC-GLUCOSE METER (BEAKER) 249 mg/dL 70-110 TESTED AT [address] (test ekvt=3856) [place] [address] POCT-GLUCOSE [id number] 08:34:00 Test Item Value Reference Range Comments POC-GLUCOSE METER (BEAKER) 238 mg/dL 70-110 TESTED AT [address] (test emtx=0955) [place] [address] BASIC METABOLIC [id number] 07:07:00 Test Item Value Reference Range Comments SODIUM (BEAKER) (test 128 meq/L 136-145 ufai=840) POTASSIUM (BEAKER) (test 5.3 meq/L 3.5-5.1 huty=767) CHLORIDE (BEAKER) (test 97 meq/L 98-107 ekgo=494) CO2 (BEAKER) (test 17 meq/L 22-29 dutf=438) BLOOD UREA NITROGEN 93 mg/dL 7-21 (BEAKER) (test ajad=793) CREATININE (BEAKER) (test 3.43 mg/dL 0.57-1.25 pfkb=627) GLUCOSE RANDOM (BEAKER) 250 mg/dL 70-105 (test szij=783) CALCIUM (BEAKER) (test 8.4 mg/dL 8.4-10.2 agsu=523) EGFR (BEAKER) (test 13 mL/min/1.73 sq m ESTIMATED GFR IS NOT etwo=3974) ACCURATE CREATININE CLEARANCE IN PREDICTING GLOMERULAR FILTRATION RATE. ESTIMATED GFR IS NOT APPLICABLE FOR DIALYSIS PATIENTS. [id number] 07:02:00 Test Item Value Reference Range Comments MAGNESIUM (BEAKER) (test xhmo=967) 2.2 mg/dL 1.6-2.6 CBC W/PLT COUNT & AUTO [id number] 06:17:00 Test Item Value Reference Range Comments WHITE BLOOD CELL COUNT (BEAKER) (test amgu=161) 9.4 K/ L 3.5-10.5 RED BLOOD CELL COUNT (BEAKER) (test vcom=014) 2.72 M/ L 3.93-5.22 HEMOGLOBIN (BEAKER) (test sfox=602) 8.2 GM/DL 11.2-15.7 HEMATOCRIT (BEAKER) (test dtnj=733) 26.0 % 34.1-44.9 MEAN CORPUSCULAR VOLUME (BEAKER) (test tthi=222) 95.6 fL 79.4-94.8 MEAN CORPUSCULAR HEMOGLOBIN (BEAKER) (test 30.1 pg 25.6-32.2 cgtd=941) MEAN CORPUSCULAR HEMOGLOBIN CONC (BEAKER) (test 31.5 GM/DL 32.2-35.5 rnme=560) RED CELL DISTRIBUTION WIDTH (BEAKER) (test 13.0 % 11.7-14.4 lzcz=647) PLATELET COUNT (BEAKER) (test gddk=855) 315 K/CU MM 150-450 MEAN PLATELET VOLUME (BEAKER) (test wqyo=998) 11.3 fL 9.4-12.3 NUCLEATED RED BLOOD CELLS (BEAKER) (test 0 /100 WBC 0-0 dwri=813) NEUTROPHILS RELATIVE PERCENT (BEAKER) (test 68 % oxyv=996) LYMPHOCYTES RELATIVE PERCENT (BEAKER) (test 21 % ugil=779) MONOCYTES RELATIVE PERCENT (BEAKER) (test 9 % hjmg=690) EOSINOPHILS RELATIVE PERCENT (BEAKER) (test 1 % qoqs=507) BASOPHILS RELATIVE PERCENT (BEAKER) (test 0 % trfd=867) NEUTROPHILS ABSOLUTE COUNT (BEAKER) (test 6.45 K/ L 1.56-6.13 aist=302) LYMPHOCYTES ABSOLUTE COUNT (BEAKER) (test 1.98 K/ L 1.18-3.74 znak=103) MONOCYTES ABSOLUTE COUNT (BEAKER) (test 0.82 K/ L 0.24-0.36 cfqi=862) EOSINOPHILS ABSOLUTE COUNT (BEAKER) (test 0.11 K/ L 0.04-0.36 qivf=889) BASOPHILS ABSOLUTE COUNT (BEAKER) (test 0.04 K/ L 0.01-0.08 lyrr=190) IMMATURE GRANULOCYTES-RELATIVE PERCENT (BEAKER) 0 % 0-1 (test hypu=5120) POCT-GLUCOSE [id number] 22:07:00 Test Item Value Reference Range Comments POC-GLUCOSE METER (BEAKER) 109 mg/dL 70-110 TESTED AT [address] (test utpa=0664) [place] [id number] POCT-GLUCOSE [id number] 21:48:00 Test Item Value Reference Range Comments POC-GLUCOSE METER (BEAKER) 41 mg/dL 70-110 Notified SAMAN HERNANDEZ/TESTED AT [facility] (test rhnw=4873) [address] [place], [place] [id number] POCT-GLUCOSE [id number] 21:34:00 Test Item Value Reference Range Comments POC-GLUCOSE METER (BEAKER) 31 mg/dL 70-110 TESTED AT [address] (test wypk=0057) [place] [id number] POCT-GLUCOSE [id number] 21:09:00 Test Item Value Reference Range Comments POC-GLUCOSE METER (BEAKER) 227 mg/dL 70-110 TESTED AT [address] (test rapc=3237) [place] [id number] RAD, CHEST, 1 VIEW, NON [id number] 19:03:00Reason for exam:->PICC LINE TIP VERIFICATIONShould this [...] MDReport Verified Date/Time: 02/01/2018 19:03:06 Reading Location: [address] Consult Reading Room [facility] [id number] 18:09:00 Test Item Value Reference Range Comments SODIUM (BEAKER) (test 132 meq/L 136-145 fiew=027) POTASSIUM (BEAKER) (test 4.8 meq/L 3.5-5.1 aunj=571) CHLORIDE (BEAKER) (test 99 meq/L 98-107 sjud=540) CO2 (BEAKER) (test 18 meq/L 22-29 tmiw=877) BLOOD UREA NITROGEN 83 mg/dL 7-21 (BEAKER) (test nylm=549) CREATININE (BEAKER) (test 3.12 mg/dL 0.57-1.25 gkkx=200) GLUCOSE RANDOM (BEAKER) 233 mg/dL 70-105 (test nzyp=379) CALCIUM (BEAKER) (test 8.8 mg/dL 8.4-10.2 pmma=965) EGFR (BEAKER) (test 15 mL/min/1.73 sq m ESTIMATED GFR IS NOT kdtn=4216) ACCURATE CREATININE CLEARANCE IN PREDICTING GLOMERULAR FILTRATION RATE. ESTIMATED GFR IS NOT APPLICABLE FOR DIALYSIS PATIENTS. [id number] 17:51:00 Test Item Value Reference Range Comments PROTIME (BEAKER) (test jqsl=531) 14.5 seconds 11.7-14.7 INR (BEAKER) (test fhog=845) 1.1 <=5.9 PARTIAL THROMBOPLASTIN TIME (BEAKER) (test 30.0 seconds 22.5-36.0 cohw=291) RECOMMENDED COUMADIN/WARFARIN INR THERAPY RANGESSTANDARD DOSE: 2.0 - 3.0 Includes: PROPHYLAXIS forvenous thrombosis, systemic embolization; TREATMENT for venous thrombosis and/or pulmonary embolus.HIGH RISK: Target INR is 2.5-3.5 for patients with mechanical heart valves.CBC W/PLT COUNT & AUTO [id number] 17:41:00 Test Item Value Reference Range Comments WHITE BLOOD CELL COUNT (BEAKER) (test wvgk=443) 9.5 K/ L 3.5-10.5 RED BLOOD CELL COUNT (BEAKER) (test hfyd=453) 2.80 M/ L 3.93-5.22 HEMOGLOBIN (BEAKER) (test vlww=262) 8.6 GM/DL 11.2-15.7 HEMATOCRIT (BEAKER) (test qbid=351) 28.3 % 34.1-44.9 MEAN CORPUSCULAR VOLUME (BEAKER) (test bvqs=942) 101.1 fL 79.4-94.8 MEAN CORPUSCULAR HEMOGLOBIN (BEAKER) (test 30.7 pg 25.6-32.2 jorc=648) MEAN CORPUSCULAR HEMOGLOBIN CONC (BEAKER) (test 30.4 GM/DL 32.2-35.5 qhei=891) RED CELL DISTRIBUTION WIDTH (BEAKER) (test 13.0 % 11.7-14.4 wzgl=772) PLATELET COUNT (BEAKER) (test qxvf=743) 330 K/CU MM 150-450 MEAN PLATELET VOLUME (BEAKER) (test iguk=893) 11.1 fL 9.4-12.3 NUCLEATED RED BLOOD CELLS (BEAKER) (test 0 /100 WBC 0-0 ompn=494) NEUTROPHILS RELATIVE PERCENT (BEAKER) (test 67 % ezdq=118) LYMPHOCYTES RELATIVE PERCENT (BEAKER) (test 23 % vdgf=354) MONOCYTES RELATIVE PERCENT (BEAKER) (test 9 % nkgb=574) EOSINOPHILS RELATIVE PERCENT (BEAKER) (test 1 % hrlq=472) BASOPHILS RELATIVE PERCENT (BEAKER) (test 0 % yhfz=641) NEUTROPHILS ABSOLUTE COUNT (BEAKER) (test 6.30 K/ L 1.56-6.13 mwxk=006) LYMPHOCYTES ABSOLUTE COUNT (BEAKER) (test 2.13 K/ L 1.18-3.74 upqx=173) MONOCYTES ABSOLUTE COUNT (BEAKER) (test 0.82 K/ L 0.24-0.36 dptw=002) EOSINOPHILS ABSOLUTE COUNT (BEAKER) (test 0.13 K/ L 0.04-0.36 muqc=062) BASOPHILS ABSOLUTE COUNT (BEAKER) (test 0.03 K/ L 0.01-0.08 nobc=857) IMMATURE GRANULOCYTES-RELATIVE PERCENT (BEAKER) 1 % 0-1 (test xurg=9922) RAD, ANKLE, MIN 3 VIEWS, [id number] 15:39:00Reason for exam:->ankle fractureFINAL REPORT Left ankle. [...] Morales Verified Date/Time: 02/01/2018 15:39:13 Reading Location: [facility] Diagnostic Imaging Reading Room - [place] [address] POCT-GLUCOSE [id number] 17:18:00 Test Item Value Reference Range Comments POC-GLUCOSE METER (BEAKER) 100 mg/dL 70-110 TESTED AT [address] (test oibz=5217) [facility] [id number] POCT-GLUCOSE [id number] 17:18:00 Test Item Value Reference Range Comments POC-GLUCOSE METER (BEAKER) 68 mg/dL 70-110 Notified SAMAN HERNANDEZ/TESTED AT [facility] (test rxzv=9755) [address] [place] [address] POCT-GLUCOSE [id number] 11:52:00 Test Item Value Reference Range Comments POC-GLUCOSE METER (BEAKER) 138 mg/dL 70-110 TESTED AT [address] (test xtrk=1759) [facility] [address] POCT-GLUCOSE [id number] 08:26:00 Test Item Value Reference Range Comments POC-GLUCOSE METER (BEAKER) 251 mg/dL 70-110 TESTED AT [address] (test jbwu=3748) [facility] [address] CBC W/PLT COUNT & AUTO [id number] 06:24:00 Test Item Value Reference Range Comments WHITE BLOOD CELL COUNT (BEAKER) (test blju=834) 8.3 K/ L 3.5-10.5 RED BLOOD CELL COUNT (BEAKER) (test cxjy=166) 2.94 M/ L 3.93-5.22 HEMOGLOBIN (BEAKER) (test srws=780) 9.2 GM/DL 11.2-15.7 HEMATOCRIT (BEAKER) (test sigx=919) 29.1 % 34.1-44.9 MEAN CORPUSCULAR VOLUME (BEAKER) (test zuky=214) 99.0 fL 79.4-94.8 MEAN CORPUSCULAR HEMOGLOBIN (BEAKER) (test 31.3 pg 25.6-32.2 mlox=542) MEAN CORPUSCULAR HEMOGLOBIN CONC (BEAKER) (test 31.6 GM/DL 32.2-35.5 gidx=186) RED CELL DISTRIBUTION WIDTH (BEAKER) (test 11.9 % 11.7-14.4 daqo=063) PLATELET COUNT (BEAKER) (test dtwm=176) 293 K/CU MM 150-450 MEAN PLATELET VOLUME (BEAKER) (test styi=044) 12.7 fL 9.4-12.3 NUCLEATED RED BLOOD CELLS (BEAKER) (test 0 /100 WBC 0-0 edmn=857) NEUTROPHILS RELATIVE PERCENT (BEAKER) (test 63 % xyyj=945) LYMPHOCYTES RELATIVE PERCENT (BEAKER) (test 20 % xhsa=069) MONOCYTES RELATIVE PERCENT (BEAKER) (test 10 % nows=849) EOSINOPHILS RELATIVE PERCENT (BEAKER) (test 6 % alxn=587) BASOPHILS RELATIVE PERCENT (BEAKER) (test 1 % qwts=923) NEUTROPHILS ABSOLUTE COUNT (BEAKER) (test 5.21 K/ L 1.56-6.13 jugu=458) LYMPHOCYTES ABSOLUTE COUNT (BEAKER) (test 1.67 K/ L 1.18-3.74 llft=595) MONOCYTES ABSOLUTE COUNT (BEAKER) (test 0.86 K/ L 0.24-0.36 yekd=759) EOSINOPHILS ABSOLUTE COUNT (BEAKER) (test 0.47 K/ L 0.04-0.36 tlof=483) BASOPHILS ABSOLUTE COUNT (BEAKER) (test 0.05 K/ L 0.01-0.08 lzjf=536) IMMATURE GRANULOCYTES-RELATIVE PERCENT (BEAKER) 1 % 0-1 (test cana=9847) POCT-GLUCOSE [id number] 21:03:00 Test Item Value Reference Range Comments POC-GLUCOSE METER (BEAKER) 354 mg/dL 70-110 TESTED AT [address] (test gcun=9935) [facility] [address] POCT-GLUCOSE [id number] 18:07:00 Test Item Value Reference Range Comments POC-GLUCOSE METER (BEAKER) 309 mg/dL 70-110 TESTED AT [address] (test lhqm=1454) [facility] [address] POCT-GLUCOSE [id number] 12:25:00 Test Item Value Reference Range Comments POC-GLUCOSE METER (BEAKER) 253 mg/dL 70-110 TESTED AT [address] (test eahh=5433) [facility] [address] POCT-GLUCOSE [id number] 08:01:00 Test Item Value Reference Range Comments POC-GLUCOSE METER (BEAKER) 305 mg/dL 70-110 Notified SAMAN HERNANDEZ/TESTED AT [facility] (test cybb=5255) [address] [place] [address] [id number] 06:41:00 Test Item Value Reference Range Comments MAGNESIUM (BEAKER) (test rput=929) 1.9 mg/dL 1.6-2.6 BASIC METABOLIC [id number] 06:41:00 Test Item Value Reference Range Comments SODIUM (BEAKER) (test 130 meq/L 136-145 ueuo=284) POTASSIUM (BEAKER) (test 4.7 meq/L 3.5-5.1 pidl=962) CHLORIDE (BEAKER) (test 97 meq/L 98-107 iuby=560) CO2 (BEAKER) (test 25 meq/L 22-29 losl=849) BLOOD UREA NITROGEN 25 mg/dL 7-21 (BEAKER) (test ijmq=341) CREATININE (BEAKER) (test 0.91 mg/dL 0.57-1.25 yzoa=065) GLUCOSE RANDOM (BEAKER) 260 mg/dL 70-105 (test cyds=891) CALCIUM (BEAKER) (test 8.7 mg/dL 8.4-10.2 lzhc=096) EGFR (BEAKER) (test 62 mL/min/1.73 sq m ESTIMATED GFR IS NOT qjpw=2147) ACCURATE CREATININE CLEARANCE IN PREDICTING GLOMERULAR FILTRATION RATE. ESTIMATED GFR IS NOT APPLICABLE FOR DIALYSIS PATIENTS. CBC W/PLT COUNT & AUTO [id number] 06:10:00 Test Item Value Reference Range Comments WHITE BLOOD CELL COUNT (BEAKER) (test hmpq=475) 9.7 K/ L 3.5-10.5 RED BLOOD CELL COUNT (BEAKER) (test kvxq=214) 2.92 M/ L 3.93-5.22 HEMOGLOBIN (BEAKER) (test rfua=226) 9.2 GM/DL 11.2-15.7 HEMATOCRIT (BEAKER) (test pgoe=200) 28.8 % 34.1-44.9 MEAN CORPUSCULAR VOLUME (BEAKER) (test ppcb=409) 98.6 fL 79.4-94.8 MEAN CORPUSCULAR HEMOGLOBIN (BEAKER) (test 31.5 pg 25.6-32.2 kwjq=047) MEAN CORPUSCULAR HEMOGLOBIN CONC (BEAKER) (test 31.9 GM/DL 32.2-35.5 xvbz=840) RED CELL DISTRIBUTION WIDTH (BEAKER) (test 12.1 % 11.7-14.4 dydo=767) PLATELET COUNT (BEAKER) (test lpsy=214) 269 K/CU MM 150-450 MEAN PLATELET VOLUME (BEAKER) (test ewtf=228) 13.2 fL 9.4-12.3 NUCLEATED RED BLOOD CELLS (BEAKER) (test 0 /100 WBC 0-0 qqac=444) NEUTROPHILS RELATIVE PERCENT (BEAKER) (test 66 % vlrg=708) LYMPHOCYTES RELATIVE PERCENT (BEAKER) (test 19 % nygo=255) MONOCYTES RELATIVE PERCENT (BEAKER) (test 10 % tzaq=385) EOSINOPHILS RELATIVE PERCENT (BEAKER) (test 4 % nteh=155) BASOPHILS RELATIVE PERCENT (BEAKER) (test 0 % tczx=168) NEUTROPHILS ABSOLUTE COUNT (BEAKER) (test 6.35 K/ L 1.56-6.13 wabe=025) LYMPHOCYTES ABSOLUTE COUNT (BEAKER) (test 1.87 K/ L 1.18-3.74 wdch=632) MONOCYTES ABSOLUTE COUNT (BEAKER) (test 0.93 K/ L 0.24-0.36 tzuu=261) EOSINOPHILS ABSOLUTE COUNT (BEAKER) (test 0.43 K/ L 0.04-0.36 eotc=845) BASOPHILS ABSOLUTE COUNT (BEAKER) (test 0.04 K/ L 0.01-0.08 zvjv=616) IMMATURE GRANULOCYTES-RELATIVE PERCENT (BEAKER) 1 % 0-1 (test phrm=2482) POCT-GLUCOSE [id number] 21:07:00 Test Item Value Reference Range Comments POC-GLUCOSE METER (BEAKER) 162 mg/dL 70-110 TESTED AT [address] (test glax=7441) [facility] [address] POCT-GLUCOSE [id number] 17:50:00 Test Item Value Reference Range Comments POC-GLUCOSE METER (BEAKER) 286 mg/dL 70-110 TESTED AT [address] (test ifps=6803) [facility] [address] POCT-GLUCOSE [id number] 13:33:00 Test Item Value Reference Range Comments POC-GLUCOSE METER (BEAKER) 123 mg/dL 70-110 TESTED AT [address] (test lkmk=4570) [facility] [address] POCT-GLUCOSE [id number] 09:09:00 Test Item Value Reference Range Comments POC-GLUCOSE METER (BEAKER) 209 mg/dL 70-110 TESTED AT [address] (test edsr=6286) [facility] [address] [id number] 05:50:00 Test Item Value Reference Range Comments MAGNESIUM (BEAKER) (test jauo=079) 2.0 mg/dL 1.6-2.6 BASIC METABOLIC [id number] 05:50:00 Test Item Value Reference Range Comments SODIUM (BEAKER) (test 131 meq/L 136-145 skkl=918) POTASSIUM (BEAKER) (test 4.9 meq/L 3.5-5.1 hehk=893) CHLORIDE (BEAKER) (test 101 meq/L 98-107 ahir=109) CO2 (BEAKER) (test 23 meq/L 22-29 fdxi=212) BLOOD UREA NITROGEN 23 mg/dL 7-21 (BEAKER) (test orpd=325) CREATININE (BEAKER) (test 0.99 mg/dL 0.57-1.25 tofw=591) GLUCOSE RANDOM (BEAKER) 173 mg/dL 70-105 (test mtgk=412) CALCIUM (BEAKER) (test 9.0 mg/dL 8.4-10.2 kmim=501) EGFR (BEAKER) (test 56 mL/min/1.73 sq m ESTIMATED GFR IS NOT ucqw=9556) ACCURATE CREATININE CLEARANCE IN PREDICTING GLOMERULAR FILTRATION RATE. ESTIMATED GFR IS NOT APPLICABLE FOR DIALYSIS PATIENTS. CBC W/PLT COUNT & AUTO [id number] 05:24:00 Test Item Value Reference Range Comments WHITE BLOOD CELL COUNT (BEAKER) (test zzro=951) 8.8 K/ L 3.5-10.5 RED BLOOD CELL COUNT (BEAKER) (test alcz=287) 3.00 M/ L 3.93-5.22 HEMOGLOBIN (BEAKER) (test yglt=957) 9.6 GM/DL 11.2-15.7 HEMATOCRIT (BEAKER) (test gqgs=085) 29.9 % 34.1-44.9 MEAN CORPUSCULAR VOLUME (BEAKER) (test mbat=912) 99.7 fL 79.4-94.8 MEAN CORPUSCULAR HEMOGLOBIN (BEAKER) (test 32.0 pg 25.6-32.2 paaw=808) MEAN CORPUSCULAR HEMOGLOBIN CONC (BEAKER) (test 32.1 GM/DL 32.2-35.5 acuz=088) RED CELL DISTRIBUTION WIDTH (BEAKER) (test 12.4 % 11.7-14.4 yjnn=401) PLATELET COUNT (BEAKER) (test kfay=274) 245 K/CU MM 150-450 MEAN PLATELET VOLUME (BEAKER) (test kxey=528) 13.2 fL 9.4-12.3 NUCLEATED RED BLOOD CELLS (BEAKER) (test 0 /100 WBC 0-0 wbxf=482) NEUTROPHILS RELATIVE PERCENT (BEAKER) (test 70 % qmin=524) LYMPHOCYTES RELATIVE PERCENT (BEAKER) (test 16 % wsyd=438) MONOCYTES RELATIVE PERCENT (BEAKER) (test 9 % dplr=719) EOSINOPHILS RELATIVE PERCENT (BEAKER) (test 4 % xowv=485) BASOPHILS RELATIVE PERCENT (BEAKER) (test 1 % xoew=663) NEUTROPHILS ABSOLUTE COUNT (BEAKER) (test 6.15 K/ L 1.56-6.13 slru=953) LYMPHOCYTES ABSOLUTE COUNT (BEAKER) (test 1.36 K/ L 1.18-3.74 clao=833) MONOCYTES ABSOLUTE COUNT (BEAKER) (test 0.83 K/ L 0.24-0.36 iukb=616) EOSINOPHILS ABSOLUTE COUNT (BEAKER) (test 0.36 K/ L 0.04-0.36 ofum=625) BASOPHILS ABSOLUTE COUNT (BEAKER) (test 0.04 K/ L 0.01-0.08 sucw=298) IMMATURE GRANULOCYTES-RELATIVE PERCENT (BEAKER) 1 % 0-1 (test ieyy=8487) CT, CTA AAA, W/ VAN.EXT.[id number] 02:56:00Addendum BeginsREPORT STATUS:A Additional postcontrast images of the lower extremities were performed utilizing a runoff protocol. Signed: Newton Engle MDReport Verified Date/Time: 01/09/2018 02:56:14 Reading Location: [address] Reading RoomAddendum EndsFINAL REPORT CLINICAL HISTORY: [...] MDReport Verified Date/Time: 01/06/2018 19:53:17 Reading Location: [address] Reading Room Electronically signed by: NEWTON ENGLE M.D. on 02:56 AMPOCT-GLUCOSE [id number] 20:28:00 Test Item Value Reference Range Comments POC-GLUCOSE METER (BEAKER) 177 mg/dL 70-110 TESTED AT [address] (test idcb=0982) [facility] [address] POCT-GLUCOSE [id number] 17:37:00 Test Item Value Reference Range Comments POC-GLUCOSE METER (BEAKER) 123 mg/dL 70-110 TESTED AT [address] (test gflo=4939) [facility] [address] GLUCOSE-STAT [id number] 15:11:00 Test Item Value Reference Range Comments GLUCOSE RANDOM (BEAKER) (test yesv=668) 112 mg/dL 70-110 HGB/HCT (H&H) - STAT [id number] 15:11:00 Test Item Value Reference Range Comments HEMOGLOBIN (BEAKER) (test wone=538) 11.0 g/dL 12.0-15.0 HEMATOCRIT (BEAKER) (test hqsn=375) 32.0 % 36.0-45.0 POCT-GLUCOSE [id number] 08:21:00 Test Item Value Reference Range Comments POC-GLUCOSE METER (BEAKER) 123 mg/dL 70-110 TESTED AT [address] (test vuoz=9945) [place] [id number] 05:17:00 Test Item Value Reference Range Comments MAGNESIUM (BEAKER) (test vtch=837) 2.2 mg/dL 1.6-2.6 BASIC METABOLIC [id number] 05:17:00 Test Item Value Reference Range Comments SODIUM (BEAKER) (test 132 meq/L 136-145 pavf=415) POTASSIUM (BEAKER) (test 4.6 meq/L 3.5-5.1 wnei=320) CHLORIDE (BEAKER) (test 99 meq/L 98-107 alkq=775) CO2 (BEAKER) (test 25 meq/L 22-29 fyue=635) BLOOD UREA NITROGEN 25 mg/dL 7-21 (BEAKER) (test ynzf=562) CREATININE (BEAKER) (test 0.85 mg/dL 0.57-1.25 ltae=312) GLUCOSE RANDOM (BEAKER) 102 mg/dL 70-105 (test tgeu=618) CALCIUM (BEAKER) (test 9.1 mg/dL 8.4-10.2 uvau=714) EGFR (BEAKER) (test 67 mL/min/1.73 sq m ESTIMATED GFR IS NOT tiwp=8913) ACCURATE CREATININE CLEARANCE IN PREDICTING GLOMERULAR FILTRATION RATE. ESTIMATED GFR IS NOT APPLICABLE FOR DIALYSIS PATIENTS. [id number] 05:11:00 Test Item Value Reference Range Comments PROTIME (BEAKER) (test mcae=631) 14.1 seconds 11.7-14.7 INR (BEAKER) (test txau=415) 1.1 <=5.9 PARTIAL THROMBOPLASTIN TIME (BEAKER) (test 34.5 seconds 22.5-36.0 udwu=564) RECOMMENDED COUMADIN/WARFARIN INR THERAPY RANGESSTANDARD DOSE: 2.0 - 3.0 Includes: PROPHYLAXIS forvenous thrombosis, systemic embolization; TREATMENT for venous thrombosis and/or pulmonary embolus.HIGH RISK: Target INR is 2.5-3.5 for patients with mechanical heart valves.[id number] 05:11:00 Test Item Value Reference Range Comments PARTIAL THROMBOPLASTIN TIME (BEAKER) (test 34.5 seconds 22.5-36.0 xsal=086) CBC W/PLT COUNT & AUTO [id number] 04:57:00 Test Item Value Reference Range Comments WHITE BLOOD CELL COUNT (BEAKER) (test kbnl=715) 8.9 K/ L 3.5-10.5 RED BLOOD CELL COUNT (BEAKER) (test mwqk=154) 3.57 M/ L 3.93-5.22 HEMOGLOBIN (BEAKER) (test rapq=212) 11.1 GM/DL 11.2-15.7 HEMATOCRIT (BEAKER) (test lilo=647) 34.9 % 34.1-44.9 MEAN CORPUSCULAR VOLUME (BEAKER) (test zgww=181) 97.8 fL 79.4-94.8 MEAN CORPUSCULAR HEMOGLOBIN (BEAKER) (test 31.1 pg 25.6-32.2 qlne=813) MEAN CORPUSCULAR HEMOGLOBIN CONC (BEAKER) (test 31.8 GM/DL 32.2-35.5 oxkb=887) RED CELL DISTRIBUTION WIDTH (BEAKER) (test 12.3 % 11.7-14.4 zyas=558) PLATELET COUNT (BEAKER) (test ufct=749) 267 K/CU MM 150-450 MEAN PLATELET VOLUME (BEAKER) (test rpsh=620) 13.3 fL 9.4-12.3 NUCLEATED RED BLOOD CELLS (BEAKER) (test 0 /100 WBC 0-0 hqkk=227) NEUTROPHILS RELATIVE PERCENT (BEAKER) (test 64 % rlsn=010) LYMPHOCYTES RELATIVE PERCENT (BEAKER) (test 21 % ptir=527) MONOCYTES RELATIVE PERCENT (BEAKER) (test 10 % emjo=956) EOSINOPHILS RELATIVE PERCENT (BEAKER) (test 4 % zoir=193) BASOPHILS RELATIVE PERCENT (BEAKER) (test 0 % qcge=932) NEUTROPHILS ABSOLUTE COUNT (BEAKER) (test 5.72 K/ L 1.56-6.13 lmog=630) LYMPHOCYTES ABSOLUTE COUNT (BEAKER) (test 1.90 K/ L 1.18-3.74 tlnw=145) MONOCYTES ABSOLUTE COUNT (BEAKER) (test 0.87 K/ L 0.24-0.36 pfff=056) EOSINOPHILS ABSOLUTE COUNT (BEAKER) (test 0.33 K/ L 0.04-0.36 zbmw=688) BASOPHILS ABSOLUTE COUNT (BEAKER) (test 0.04 K/ L 0.01-0.08 dkac=691) IMMATURE GRANULOCYTES-RELATIVE PERCENT (BEAKER) 1 % 0-1 (test vryo=7465) POCT-GLUCOSE [id number] 20:47:00 Test Item Value Reference Range Comments POC-GLUCOSE METER (BEAKER) 131 mg/dL 70-110 TESTED AT [address] (test mych=8464) [place] [id number] POCT-GLUCOSE [id number] 16:03:00 Test Item Value Reference Range Comments POC-GLUCOSE METER (BEAKER) 174 mg/dL 70-110 TESTED AT [address] (test fuum=2338) [place] [id number] POCT-GLUCOSE [id number] 13:49:00 Test Item Value Reference Range Comments POC-GLUCOSE METER (BEAKER) 100 mg/dL 70-110 TESTED AT [address] (test pima=6645) [place] [address] POCT-GLUCOSE [id number] 13:05:00 Test Item Value Reference Range Comments POC-GLUCOSE METER (BEAKER) 70 mg/dL 70-[address] [facility] [address] [facility] (test kxpv=6178) [facility] [address] POCT-GLUCOSE [id number] 08:23:00 Test Item Value Reference Range Comments POC-GLUCOSE METER (BEAKER) 142 mg/dL 70-110 TESTED AT [place] [id number] [facility] (test vdug=2178) [facility] [address] [id number] 07:10:00 Test Item Value Reference Range Comments MAGNESIUM (BEAKER) (test ohhe=667) 1.9 mg/dL 1.6-2.6 BASIC METABOLIC [id number] 07:10:00 Test Item Value Reference Range Comments SODIUM (BEAKER) (test 131 meq/L 136-145 muuw=442) POTASSIUM (BEAKER) (test 4.2 meq/L 3.5-5.1 lcmm=681) CHLORIDE (BEAKER) (test 97 meq/L 98-107 munb=884) CO2 (BEAKER) (test 25 meq/L 22-29 pirr=610) BLOOD UREA NITROGEN 22 mg/dL 7-21 (BEAKER) (test mbdg=299) CREATININE (BEAKER) (test 0.78 mg/dL 0.57-1.25 iuti=767) GLUCOSE RANDOM (BEAKER) 167 mg/dL 70-105 (test ztig=221) CALCIUM (BEAKER) (test 9.1 mg/dL 8.4-10.2 lxrs=281) EGFR (BEAKER) (test 74 mL/min/1.73 sq m ESTIMATED GFR IS NOT vmvx=6531) ACCURATE CREATININE CLEARANCE IN PREDICTING GLOMERULAR FILTRATION RATE. ESTIMATED GFR IS NOT APPLICABLE FOR DIALYSIS PATIENTS. CBC W/PLT COUNT & AUTO [id number] 06:39:00 Test Item Value Reference Range Comments WHITE BLOOD CELL COUNT (BEAKER) (test abhy=858) 8.3 K/ L 3.5-10.5 RED BLOOD CELL COUNT (BEAKER) (test pgwn=637) 3.59 M/ L 3.93-5.22 HEMOGLOBIN (BEAKER) (test gmxj=037) 11.4 GM/DL 11.2-15.7 HEMATOCRIT (BEAKER) (test qgyr=521) 35.1 % 34.1-44.9 MEAN CORPUSCULAR VOLUME (BEAKER) (test ylyq=147) 97.8 fL 79.4-94.8 MEAN CORPUSCULAR HEMOGLOBIN (BEAKER) (test 31.8 pg 25.6-32.2 xjzh=407) MEAN CORPUSCULAR HEMOGLOBIN CONC (BEAKER) (test 32.5 GM/DL 32.2-35.5 hhtk=420) RED CELL DISTRIBUTION WIDTH (BEAKER) (test 12.4 % 11.7-14.4 cmaz=306) PLATELET COUNT (BEAKER) (test gayj=655) 249 K/CU MM 150-450 MEAN PLATELET VOLUME (BEAKER) (test yooq=973) 13.4 fL 9.4-12.3 NUCLEATED RED BLOOD CELLS (BEAKER) (test 0 /100 WBC 0-0 ulvh=605) NEUTROPHILS RELATIVE PERCENT (BEAKER) (test 66 % rkmr=372) LYMPHOCYTES RELATIVE PERCENT (BEAKER) (test 21 % xwoo=507) MONOCYTES RELATIVE PERCENT (BEAKER) (test 9 % oqik=601) EOSINOPHILS RELATIVE PERCENT (BEAKER) (test 3 % sjhb=552) BASOPHILS RELATIVE PERCENT (BEAKER) (test 0 % texh=127) NEUTROPHILS ABSOLUTE COUNT (BEAKER) (test 5.53 K/ L 1.56-6.13 smbn=102) LYMPHOCYTES ABSOLUTE COUNT (BEAKER) (test 1.71 K/ L 1.18-3.74 bmmu=028) MONOCYTES ABSOLUTE COUNT (BEAKER) (test 0.76 K/ L 0.24-0.36 njzi=604) EOSINOPHILS ABSOLUTE COUNT (BEAKER) (test 0.25 K/ L 0.04-0.36 zavl=729) BASOPHILS ABSOLUTE COUNT (BEAKER) (test 0.03 K/ L 0.01-0.08 shsc=568) IMMATURE GRANULOCYTES-RELATIVE PERCENT (BEAKER) 1 % 0-1 (test pspm=0476) POCT-GLUCOSE [id number] 22:13:00 Test Item Value Reference Range Comments POC-GLUCOSE METER (BEAKER) 278 mg/dL 70-[address] [facility] [address] [facility] (test iqef=2850) [facility] [address] POCT-GLUCOSE [id number] 16:21:00 Test Item Value Reference Range Comments POC-GLUCOSE METER (BEAKER) 117 mg/dL 70-[address] [facility] [address] [facility] (test pbmq=0735) [facility] [address] POCT-GLUCOSE [id number] 12:15:00 Test Item Value Reference Range Comments POC-GLUCOSE METER (BEAKER) 126 mg/dL 70-[address] [facility] [address] [facility] (test alqc=3514) [facility] [address] B-TYPE NATRIURETIC FACTOR (BNP)2018-01-06 08:18:00 Test Item Value Reference Range Comments B-TYPE NATRIURETIC PEPTIDE (BEAKER) (test jixv=210) 93 pg/mL 0-100 [id number] 07:52:00 Test Item Value Reference Range Comments MAGNESIUM (BEAKER) (test oqsw=509) 1.8 mg/dL 1.6-2.6 BASIC METABOLIC [id number] 07:52:00 Test Item Value Reference Range Comments SODIUM (BEAKER) (test 133 meq/L 136-145 umjm=690) POTASSIUM (BEAKER) (test 4.0 meq/L 3.5-5.1 bpnv=763) CHLORIDE (BEAKER) (test 99 meq/L 98-107 vyrl=695) CO2 (BEAKER) (test 26 meq/L 22-29 xwsr=888) BLOOD UREA NITROGEN 19 mg/dL 7-21 (BEAKER) (test jspv=110) CREATININE (BEAKER) (test 0.72 mg/dL 0.57-1.25 fucz=517) GLUCOSE RANDOM (BEAKER) 193 mg/dL 70-105 (test uogi=358) CALCIUM (BEAKER) (test 9.3 mg/dL 8.4-10.2 ezez=428) EGFR (BEAKER) (test 81 mL/min/1.73 sq m ESTIMATED GFR IS NOT ylrg=5767) ACCURATE CREATININE CLEARANCE IN PREDICTING GLOMERULAR FILTRATION RATE. ESTIMATED GFR IS NOT APPLICABLE FOR DIALYSIS PATIENTS. POCT-GLUCOSE [id number] 07:38:00 Test Item Value Reference Range Comments POC-GLUCOSE METER (BEAKER) 204 mg/dL 70-[address] [facility] [address] [facility] (test iipm=4790) [facility] [address] CBC W/PLT COUNT & AUTO [id number] 07:36:00 Test Item Value Reference Range Comments WHITE BLOOD CELL COUNT (BEAKER) (test bynw=977) 10.2 K/ L 3.5-10.5 RED BLOOD CELL COUNT (BEAKER) (test epuj=039) 3.73 M/ L 3.93-5.22 HEMOGLOBIN (BEAKER) (test llib=993) 11.9 GM/DL 11.2-15.7 HEMATOCRIT (BEAKER) (test gjvh=070) 36.0 % 34.1-44.9 MEAN CORPUSCULAR VOLUME (BEAKER) (test ljvd=129) 96.5 fL 79.4-94.8 MEAN CORPUSCULAR HEMOGLOBIN (BEAKER) (test 31.9 pg 25.6-32.2 khbs=879) MEAN CORPUSCULAR HEMOGLOBIN CONC (BEAKER) (test 33.1 GM/DL 32.2-35.5 dtjp=154) RED CELL DISTRIBUTION WIDTH (BEAKER) (test 12.5 % 11.7-14.4 lprc=955) PLATELET COUNT (BEAKER) (test ldwa=022) 246 K/CU MM 150-450 MEAN PLATELET VOLUME (BEAKER) (test nygy=792) 13.4 fL 9.4-12.3 NUCLEATED RED BLOOD CELLS (BEAKER) (test 0 /100 WBC 0-0 mwgb=294) NEUTROPHILS RELATIVE PERCENT (BEAKER) (test 71 % olxt=868) LYMPHOCYTES RELATIVE PERCENT (BEAKER) (test 19 % imrp=096) MONOCYTES RELATIVE PERCENT (BEAKER) (test 8 % zucn=389) EOSINOPHILS RELATIVE PERCENT (BEAKER) (test 2 % vtff=025) BASOPHILS RELATIVE PERCENT (BEAKER) (test 0 % ovqf=766) NEUTROPHILS ABSOLUTE COUNT (BEAKER) (test 7.29 K/ L 1.56-6.13 lise=816) LYMPHOCYTES ABSOLUTE COUNT (BEAKER) (test 1.93 K/ L 1.18-3.74 gafe=024) MONOCYTES ABSOLUTE COUNT (BEAKER) (test 0.81 K/ L 0.24-0.36 sjnb=025) EOSINOPHILS ABSOLUTE COUNT (BEAKER) (test 0.15 K/ L 0.04-0.36 tqpz=623) BASOPHILS ABSOLUTE COUNT (BEAKER) (test 0.03 K/ L 0.01-0.08 euvk=397) IMMATURE GRANULOCYTES-RELATIVE PERCENT (BEAKER) 0 % 0-1 (test vree=3201) POCT-GLUCOSE [id number] 22:01:00 Test Item Value Reference Range Comments POC-GLUCOSE METER (BEAKER) 281 mg/dL 70-110 TESTED AT [address] (test bhjf=5731) [place] [address] RAD, CHEST, 1 VIEW, NON [id number] 17:19:00Reason for exam:-> hypoxiaShould this be performed [...] tortuous. No acute osseous abnormality. [facility] Verified Date/Time: 01/05/2018 17:19:47 [facility] POCT-GLUCOSE [id number] 17:18:00 Test Item Value Reference Range Comments POC-GLUCOSE METER (BEAKER) 340 mg/dL 70-110 TESTED AT [address] (test dloz=5132) [place] [address] POCT-GLUCOSE [id number] 13:18:00 Test Item Value Reference Range Comments POC-GLUCOSE METER (BEAKER) 333 mg/dL 70-110 Notified SAMAN HERNANDEZ/TESTED AT [facility] (test duop=8923) [address] [place] [address] RAD, ANKLE, 2 VIEWS, [id number] 11:18:00Reason for exam:->left ankle ORIFShould this be [...] MDReport Verified Date/Time: 01/05/2018 11:18:34 Reading Location: [facility] RadiologyReading Room HEMOGLOBIN [id number] 09:50:00 Test Item Value Reference Range Comments HEMOGLOBIN A1C (BEAKER) (test acsr=489) 13.1 % 4.3-6.1 POCT-GLUCOSE [id number] 08:58:00 Test Item Value Reference Range Comments POC-GLUCOSE METER (BEAKER) 241 mg/dL 70-[address] [facility] [address] [facility] (test vufb=0150) [facility] [address] [id number] 05:32:00 Test Item Value Reference Range Comments MAGNESIUM (BEAKER) (test rark=321) 1.5 mg/dL 1.6-2.6 BASIC METABOLIC [id number] 05:32:00 Test Item Value Reference Range Comments SODIUM (BEAKER) (test 130 meq/L 136-145 ctij=141) POTASSIUM (BEAKER) (test 3.5 meq/L 3.5-5.1 oaxf=636) CHLORIDE (BEAKER) (test 96 meq/L 98-107 skcf=699) CO2 (BEAKER) (test 26 meq/L 22-29 jvfd=810) BLOOD UREA NITROGEN 17 mg/dL 7-21 (BEAKER) (test jqpy=476) CREATININE (BEAKER) (test 0.77 mg/dL 0.57-1.25 kckp=273) GLUCOSE RANDOM (BEAKER) 221 mg/dL 70-105 (test uxku=933) CALCIUM (BEAKER) (test 8.7 mg/dL 8.4-10.2 kpsi=194) EGFR (BEAKER) (test 75 mL/min/1.73 sq m ESTIMATED GFR IS NOT wdmv=5424) ACCURATE CREATININE CLEARANCE IN PREDICTING GLOMERULAR FILTRATION RATE. ESTIMATED GFR IS NOT APPLICABLE FOR DIALYSIS PATIENTS. HEPATIC FUNCTION [id number] 05:32:00 Test Item Value Reference Range Comments TOTAL PROTEIN (BEAKER) (test acwp=214) 6.8 gm/dL 6.0-8.3 ALBUMIN (BEAKER) (test ufrn=4013) 3.0 g/dL 3.5-5.0 BILIRUBIN TOTAL (BEAKER) (test ecqj=589) 0.6 mg/dL 0.2-1.2 BILIRUBIN DIRECT (BEAKER) (test apwa=046) 0.3 mg/dL 0.1-0.5 ALKALINE PHOSPHATASE (BEAKER) (test trvh=437) 216 U/L 40-150 AST (SGOT) (BEAKER) (test hhnk=714) 26 U/L 5-34 ALT (SGPT) (BEAKER) (test qkme=347) 32 U/L 6-55 PROTHROMBIN [id number] 05:12:00 Test Item Value Reference Range Comments PROTIME (BEAKER) (test babt=417) 14.2 seconds 11.7-14.7 INR (BEAKER) (test jgqk=933) 1.1 <=5.9 RECOMMENDED COUMADIN/WARFARIN INR THERAPY RANGESSTANDARD DOSE: 2.0 - 3.0 Includes: PROPHYLAXIS forvenous thrombosis, systemic embolization; TREATMENT for venous thrombosis and/or pulmonary embolus.HIGH RISK: Target INR is 2.5-3.5 for patients with mechanical heart valves.CBC W/PLT COUNT & AUTO [id number] 05:06:00 Test Item Value Reference Range Comments WHITE BLOOD CELL COUNT (BEAKER) (test pmwo=001) 10.1 K/ L 3.5-10.5 RED BLOOD CELL COUNT (BEAKER) (test yseo=554) 3.87 M/ L 3.93-5.22 HEMOGLOBIN (BEAKER) (test vnfk=771) 12.3 GM/DL 11.2-15.7 HEMATOCRIT (BEAKER) (test vfrd=944) 37.3 % 34.1-44.9 MEAN CORPUSCULAR VOLUME (BEAKER) (test qtpr=803) 96.4 fL 79.4-94.8 MEAN CORPUSCULAR HEMOGLOBIN (BEAKER) (test 31.8 pg 25.6-32.2 ykih=002) MEAN CORPUSCULAR HEMOGLOBIN CONC (BEAKER) (test 33.0 GM/DL 32.2-35.5 fuab=224) RED CELL DISTRIBUTION WIDTH (BEAKER) (test 12.5 % 11.7-14.4 lyiv=257) PLATELET COUNT (BEAKER) (test ydsd=343) 229 K/CU MM 150-450 MEAN PLATELET VOLUME (BEAKER) (test whda=504) 13.4 fL 9.4-12.3 NUCLEATED RED BLOOD CELLS (BEAKER) (test 0 /100 WBC 0-0 xmkf=612) NEUTROPHILS RELATIVE PERCENT (BEAKER) (test 75 % sltc=837) LYMPHOCYTES RELATIVE PERCENT (BEAKER) (test 15 % ixrh=479) MONOCYTES RELATIVE PERCENT (BEAKER) (test 8 % uxdo=923) EOSINOPHILS RELATIVE PERCENT (BEAKER) (test 2 % evox=725) BASOPHILS RELATIVE PERCENT (BEAKER) (test 0 % hxlv=237) NEUTROPHILS ABSOLUTE COUNT (BEAKER) (test 7.56 K/ L 1.56-6.13 ifks=591) LYMPHOCYTES ABSOLUTE COUNT (BEAKER) (test 1.48 K/ L 1.18-3.74 jeog=453) MONOCYTES ABSOLUTE COUNT (BEAKER) (test 0.80 K/ L 0.24-0.36 xzwk=167) EOSINOPHILS ABSOLUTE COUNT (BEAKER) (test 0.20 K/ L 0.04-0.36 yehy=210) BASOPHILS ABSOLUTE COUNT (BEAKER) (test 0.02 K/ L 0.01-0.08 yqau=992) IMMATURE GRANULOCYTES-RELATIVE PERCENT (BEAKER) 0 % 0-1 (test vwgy=8202) SPUTUM CULTURE + GRAM [id number] 15:32:00 Test Item Value Reference Range Comments CULTURE (BEAKER) 4+ Haemophilus (test usex=5399) influenzaeBeta-lactamase negative GRAM STAIN RESULT 4+ WBCs (BEAKER) (test onee=5287) GRAM STAIN RESULT 0-5 epithelial cells (BEAKER) (test dnax=914262) GRAM STAIN RESULT <1+ gram positive rods (BEAKER) (test jgiw=094930) GRAM STAIN RESULT 2+ gram positive cocci (BEAKER) (test in pairs jzro=[id number]) 4+ Normal respiratory lor presentPOCT-GLUCOSE [id number] 12:42:00 Test Item Value Reference Range Comments POC-GLUCOSE METER (BEAKER) 302 mg/dL 70-110 Notified SAMAN HERNANDEZ/TESTED AT [facility] (test cgti=2125) [address] [facility] [address] POCT-GLUCOSE [id number] 07:51:00 Test Item Value Reference Range Comments POC-GLUCOSE METER (BEAKER) 264 mg/dL 70-[address] [facility] [address] (test hvkl=7260) [facility] [address] CALCIUM, [id number] 05:24:00 Test Item Value Reference Range Comments CALCIUM IONIZED (BEAKER) (test adyb=032) 1.11 mmol/L 1.12-1.27 PH, BLOOD (BEAKER) (test ylgn=7301) 7.47 [id number] 04:43:00 Test Item Value Reference Range Comments PHOSPHORUS (BEAKER) (test iygq=846) 3.2 mg/dL 2.3-4.7 [id number] 04:43:00 Test Item Value Reference Range Comments MAGNESIUM (BEAKER) (test ykep=301) 1.3 mg/dL 1.6-2.6 BASIC METABOLIC [id number] 04:43:00 Test Item Value Reference Range Comments SODIUM (BEAKER) (test 137 meq/L 136-145 umcs=069) POTASSIUM (BEAKER) (test 3.4 meq/L 3.5-5.1 umag=046) CHLORIDE (BEAKER) (test 103 meq/L 98-107 swhg=336) CO2 (BEAKER) (test 25 meq/L 22-29 ecgy=744) BLOOD UREA NITROGEN 22 mg/dL 7-21 (BEAKER) (test zxfy=031) CREATININE (BEAKER) (test 0.74 mg/dL 0.57-1.25 dkbf=768) GLUCOSE RANDOM (BEAKER) 237 mg/dL 70-105 (test sjwm=505) CALCIUM (BEAKER) (test 9.0 mg/dL 8.4-10.2 fwxn=410) EGFR (BEAKER) (test 79 mL/min/1.73 sq m ESTIMATED GFR IS NOT mbek=8428) ACCURATE CREATININE CLEARANCE IN PREDICTING GLOMERULAR FILTRATION RATE. ESTIMATED GFR IS NOT APPLICABLE FOR DIALYSIS PATIENTS. CBC W/PLT COUNT & AUTO [id number] 04:05:00 Test Item Value Reference Range Comments WHITE BLOOD CELL COUNT (BEAKER) (test brhw=189) 8.1 K/ L 3.5-10.5 RED BLOOD CELL COUNT (BEAKER) (test ntts=993) 3.43 M/ L 3.93-5.22 HEMOGLOBIN (BEAKER) (test elax=091) 10.9 GM/DL 11.2-15.7 HEMATOCRIT (BEAKER) (test nulw=118) 32.2 % 34.1-44.9 MEAN CORPUSCULAR VOLUME (BEAKER) (test wmon=511) 93.9 fL 79.4-94.8 MEAN CORPUSCULAR HEMOGLOBIN (BEAKER) (test 31.8 pg 25.6-32.2 xlps=217) MEAN CORPUSCULAR HEMOGLOBIN CONC (BEAKER) (test 33.9 GM/DL 32.2-35.5 ntpy=492) RED CELL DISTRIBUTION WIDTH (BEAKER) (test 13.2 % 11.7-14.4 dswe=643) PLATELET COUNT (BEAKER) (test runh=306) 225 K/CU MM 150-450 MEAN PLATELET VOLUME (BEAKER) (test warl=251) 12.9 fL 9.4-12.3 NUCLEATED RED BLOOD CELLS (BEAKER) (test 0 /100 WBC 0-0 svrt=767) NEUTROPHILS RELATIVE PERCENT (BEAKER) (test 60 % wqkq=060) LYMPHOCYTES RELATIVE PERCENT (BEAKER) (test 26 % tqbd=060) MONOCYTES RELATIVE PERCENT (BEAKER) (test 8 % gkdr=379) EOSINOPHILS RELATIVE PERCENT (BEAKER) (test 6 % lsvt=850) BASOPHILS RELATIVE PERCENT (BEAKER) (test 0 % agvn=116) NEUTROPHILS ABSOLUTE COUNT (BEAKER) (test 4.83 K/ L 1.56-6.13 hpff=802) LYMPHOCYTES ABSOLUTE COUNT (BEAKER) (test 2.09 K/ L 1.18-3.74 wpua=400) MONOCYTES ABSOLUTE COUNT (BEAKER) (test 0.66 K/ L 0.24-0.36 rpeg=863) EOSINOPHILS ABSOLUTE COUNT (BEAKER) (test 0.48 K/ L 0.04-0.36 gbvw=773) BASOPHILS ABSOLUTE COUNT (BEAKER) (test 0.03 K/ L 0.01-0.08 psbw=654) IMMATURE GRANULOCYTES-RELATIVE PERCENT (BEAKER) 0 % 0-1 (test uizn=0034) POCT-GLUCOSE [id number] 21:31:00 Test Item Value Reference Range Comments POC-GLUCOSE METER (BEAKER) 186 mg/dL 70-110 TESTED AT [address] (test zcux=8154) [place] [address] POCT-GLUCOSE [id number] 18:45:00 Test Item Value Reference Range Comments POC-GLUCOSE METER (BEAKER) 215 mg/dL 70-110 TESTED AT [address] (test lzig=9283) [place] [address] POCT-GLUCOSE [id number] 12:34:00 Test Item Value Reference Range Comments POC-GLUCOSE METER (BEAKER) 428 mg/dL 70-110 Notified SAMAN HERNANDEZ/TESTED AT [facility] (test aphj=8698) [address] [place] [address] RAD, CHEST, 1 VIEW, NON [id number] 09:30:00Reason for exam:->Respiratory distress Should this be [...] Hercules Verified Date/Time: 07/12/2017 09:30:37 Reading Location: [facility] Radiology Reading Room POCT-GLUCOSE [id number] 07:54:00 Test Item Value Reference Range Comments POC-GLUCOSE METER (BEAKER) 332 mg/dL 70-110 TESTED AT [address] (test axlq=3217) [place] [address] VITAMIN [id number] 06:24:00 Test Item Value Reference Range Comments VITAMIN B12 (BEAKER) (test orzg=266) 318 pg/mL 213-816 BASIC METABOLIC [id number] 05:51:00 Test Item Value Reference Range Comments SODIUM (BEAKER) (test 141 meq/L 136-145 ghhv=352) POTASSIUM (BEAKER) (test 3.6 meq/L 3.5-5.1 xbny=329) CHLORIDE (BEAKER) (test 108 meq/L 98-107 krgy=455) CO2 (BEAKER) (test 25 meq/L 22-29 qpkj=266) BLOOD UREA NITROGEN 19 mg/dL 7-21 (BEAKER) (test vgqs=856) CREATININE (BEAKER) (test 0.82 mg/dL 0.57-1.25 mgdk=569) GLUCOSE RANDOM (BEAKER) 393 mg/dL 70-105 (test tefj=009) CALCIUM (BEAKER) (test 8.9 mg/dL 8.4-10.2 irrw=514) EGFR (BEAKER) (test 70 mL/min/1.73 sq m ESTIMATED GFR IS NOT ofgk=2306) ACCURATE CREATININE CLEARANCE IN PREDICTING GLOMERULAR FILTRATION RATE. ESTIMATED GFR IS NOT APPLICABLE FOR DIALYSIS PATIENTS. CBC W/PLT COUNT & AUTO [id number] 05:26:00 Test Item Value Reference Range Comments WHITE BLOOD CELL COUNT (BEAKER) (test guia=243) 8.0 K/ L 3.5-10.5 RED BLOOD CELL COUNT (BEAKER) (test ddvw=519) 3.44 M/ L 3.93-5.22 HEMOGLOBIN (BEAKER) (test uvdu=243) 10.7 GM/DL 11.2-15.7 HEMATOCRIT (BEAKER) (test htcn=281) 32.8 % 34.1-44.9 MEAN CORPUSCULAR VOLUME (BEAKER) (test adyz=134) 95.3 fL 79.4-94.8 MEAN CORPUSCULAR HEMOGLOBIN (BEAKER) (test 31.1 pg 25.6-32.2 ldgb=754) MEAN CORPUSCULAR HEMOGLOBIN CONC (BEAKER) (test 32.6 GM/DL 32.2-35.5 buov=146) RED CELL DISTRIBUTION WIDTH (BEAKER) (test 13.5 % 11.7-14.4 qofm=762) PLATELET COUNT (BEAKER) (test wmhn=493) 200 K/CU MM 150-450 MEAN PLATELET VOLUME (BEAKER) (test dmjj=569) 13.0 fL 9.4-12.3 NUCLEATED RED BLOOD CELLS (BEAKER) (test 0 /100 WBC 0-0 fxge=274) NEUTROPHILS RELATIVE PERCENT (BEAKER) (test 64 % lywu=164) LYMPHOCYTES RELATIVE PERCENT (BEAKER) (test 22 % uzej=355) MONOCYTES RELATIVE PERCENT (BEAKER) (test 7 % drnt=887) EOSINOPHILS RELATIVE PERCENT (BEAKER) (test 6 % eksu=093) BASOPHILS RELATIVE PERCENT (BEAKER) (test 1 % fhxf=483) NEUTROPHILS ABSOLUTE COUNT (BEAKER) (test 5.11 K/ L 1.56-6.13 qikp=676) LYMPHOCYTES ABSOLUTE COUNT (BEAKER) (test 1.73 K/ L 1.18-3.74 tzyd=617) MONOCYTES ABSOLUTE COUNT (BEAKER) (test 0.59 K/ L 0.24-0.36 beiq=190) EOSINOPHILS ABSOLUTE COUNT (BEAKER) (test 0.47 K/ L 0.04-0.36 pcap=414) BASOPHILS ABSOLUTE COUNT (BEAKER) (test 0.05 K/ L 0.01-0.08 lljx=907) IMMATURE GRANULOCYTES-RELATIVE PERCENT (BEAKER) 0 % 0-1 (test ywzb=6490) POCT-GLUCOSE [id number] 22:48:00 Test Item Value Reference Range Comments POC-GLUCOSE METER (BEAKER) 376 mg/dL 70-110 Notified SAMAN HERNANDEZ/TESTED AT [facility] (test fuxc=6928) [address] [place] [address] POCT-GLUCOSE [id number] 22:04:00 Test Item Value Reference Range Comments POC-GLUCOSE METER (BEAKER) 434 mg/dL 70-110 Notified SAMAN HERNANDEZ/TESTED AT [facility] (test sctx=7767) [address] [place] [address] POCT-GLUCOSE [id number] 18:16:00 Test Item Value Reference Range Comments POC-GLUCOSE METER (BEAKER) 340 mg/dL 70-110 Notified ASMAN HERNANDEZ/TESTED AT [facility] (test qtkb=9516) [address] [place] [address] POCT-GLUCOSE [id number] 12:40:00 Test Item Value Reference Range Comments POC-GLUCOSE METER (BEAKER) 339 mg/dL 70-110 Notified SAMAN HERNANDEZ/TESTED AT [facility] (test uigg=9694) [address] [place] [address] POCT-GLUCOSE [id number] 08:40:00 Test Item Value Reference Range Comments POC-GLUCOSE METER (BEAKER) 290 mg/dL 70-110 TESTED AT [address] (test dise=3770) [facility] [address] RAD, CHEST, 1 VIEW, NON [id number] 08:02:00Reason for exam:-> intubatedShould this be performed [...] Hercules Verified Date/Time: 07/11/2017 08:02:13 Reading Location: [facility] Radiology Reading Room POCT-GLUCOSE [id number] 06:33:00 Test Item Value Reference Range Comments POC-GLUCOSE METER (BEAKER) 354 mg/dL 70-110 Notified SAMAN HERNANDEZ/TESTED AT [facility] (test ziux=7164) [address] [place] [address] BLOOD GAS, [id number] 05:30:00 Test Item Value Reference Range Comments PH ARTERIAL (BEAKER) (test towj=767) 7.42 7.35-7.45 PCO2 ARTERIAL (BEAKER) (test heft=106) 29 mmHg 35-45 PO2 ARTERIAL (BEAKER) (test uhys=690) 96 mmHg 80-90 O2 SATURATION ARTERIAL (BEAKER) (test pydj=565) 97.5 % 96.0-97.0 HCO3 ARTERIAL (BEAKER) (test gspt=427) 18 mmol/L 21-29 BASE EXCESS ARTERIAL (BEAKER) (test bwgm=030) -5.1 mmol/L -2.0-3.0 PATIENT TEMPERATURE (BEAKER) (test zecj=9167) 37.0 C FIO2 (BEAKER) (test zebz=7886) 21.0 % BASIC METABOLIC [id number] 03:15:00 Test Item Value Reference Range Comments SODIUM (BEAKER) (test 138 meq/L 136-145 ktjz=433) POTASSIUM (BEAKER) (test 3.9 meq/L 3.5-5.1 tuji=767) CHLORIDE (BEAKER) (test 109 meq/L 98-107 pwek=011) CO2 (BEAKER) (test 18 meq/L 22-29 bdfd=144) BLOOD UREA NITROGEN 18 mg/dL 7-21 (BEAKER) (test nqis=832) CREATININE (BEAKER) (test 0.79 mg/dL 0.57-1.25 gstx=420) GLUCOSE RANDOM (BEAKER) 349 mg/dL 70-105 (test lple=588) CALCIUM (BEAKER) (test 8.2 mg/dL 8.4-10.2 pfzc=066) EGFR (BEAKER) (test 73 mL/min/1.73 sq m ESTIMATED GFR IS NOT vkxj=2753) ACCURATE CREATININE CLEARANCE IN PREDICTING GLOMERULAR FILTRATION RATE. ESTIMATED GFR IS NOT APPLICABLE FOR DIALYSIS PATIENTS. BLOOD GAS, [id number] 03:03:00 Test Item Value Reference Range Comments PH ARTERIAL (BEAKER) (test sias=116) 7.46 7.35-7.45 PCO2 ARTERIAL (BEAKER) (test mgtx=774) 31 mmHg 35-45 PO2 ARTERIAL (BEAKER) (test vxgm=337) 62 mmHg 80-90 O2 SATURATION ARTERIAL (BEAKER) (test sokl=045) 93.1 % 96.0-97.0 HCO3 ARTERIAL (BEAKER) (test rcpd=494) 21 mmol/L 21-29 BASE EXCESS ARTERIAL (BEAKER) (test ftnj=912) -1.6 mmol/L -2.0-3.0 PATIENT TEMPERATURE (BEAKER) (test xuij=3982) 37.0 C FIO2 (BEAKER) (test nlsd=7145) 60.0 % CBC W/PLT COUNT & AUTO [id number] 03:03:00 Test Item Value Reference Range Comments WHITE BLOOD CELL COUNT (BEAKER) (test tpoj=643) 11.5 K/ L 3.5-10.5 RED BLOOD CELL COUNT (BEAKER) (test cwmv=740) 3.57 M/ L 3.93-5.22 HEMOGLOBIN (BEAKER) (test snme=997) 11.0 GM/DL 11.2-15.7 HEMATOCRIT (BEAKER) (test dnqp=172) 33.3 % 34.1-44.9 MEAN CORPUSCULAR VOLUME (BEAKER) (test uvvl=637) 93.3 fL 79.4-94.8 MEAN CORPUSCULAR HEMOGLOBIN (BEAKER) (test 30.8 pg 25.6-32.2 gqss=430) MEAN CORPUSCULAR HEMOGLOBIN CONC (BEAKER) (test 33.0 GM/DL 32.2-35.5 bppr=520) RED CELL DISTRIBUTION WIDTH (BEAKER) (test 13.4 % 11.7-14.4 ypvl=674) PLATELET COUNT (BEAKER) (test dzzo=232) 181 K/CU MM 150-450 MEAN PLATELET VOLUME (BEAKER) (test xxdk=718) 13.1 fL 9.4-12.3 NUCLEATED RED BLOOD CELLS (BEAKER) (test 0 /100 WBC 0-0 rmik=578) NEUTROPHILS RELATIVE PERCENT (BEAKER) (test 87 % yvli=939) LYMPHOCYTES RELATIVE PERCENT (BEAKER) (test 6 % kkwh=844) MONOCYTES RELATIVE PERCENT (BEAKER) (test 5 % fmel=800) EOSINOPHILS RELATIVE PERCENT (BEAKER) (test 1 % ielg=300) BASOPHILS RELATIVE PERCENT (BEAKER) (test 1 % bfqh=398) NEUTROPHILS ABSOLUTE COUNT (BEAKER) (test 9.98 K/ L 1.56-6.13 rwwl=073) LYMPHOCYTES ABSOLUTE COUNT (BEAKER) (test 0.67 K/ L 1.18-3.74 qftf=376) MONOCYTES ABSOLUTE COUNT (BEAKER) (test 0.56 K/ L 0.24-0.36 egyv=550) EOSINOPHILS ABSOLUTE COUNT (BEAKER) (test 0.12 K/ L 0.04-0.36 dkun=015) BASOPHILS ABSOLUTE COUNT (BEAKER) (test 0.07 K/ L 0.01-0.08 puva=161) IMMATURE GRANULOCYTES-RELATIVE PERCENT (BEAKER) 1 % 0-1 (test jfqt=6419) POCT-GLUCOSE [id number] 00:49:00 Test Item Value Reference Range Comments POC-GLUCOSE METER (BEAKER) 301 mg/dL 70-110 Notified SAMAN HERNANDEZ/TESTED AT [facility] (test dhsy=9372) [address] [place] [address] TROPONIN [id number] 00:36:00 Test Item Value Reference Range Comments TROPONIN I (BEAKER) (test zeby=184) 0.17 ng/mL 0.00-0.03 Troponin I (TnI) levels [...] and persistent tachyarrhythmia.CREATINE KINASE (CK), TOTAL AND [id number] 00:33:00 Test Item Value Reference Range Comments CREATINE KINASE TOTAL (BEAKER) (test gdhj=382) 168 U/L 29-200 CREATINE KINASE-MB (BEAKER) (test mmmm=978) 1.2 ng/mL 0.0-6.6 CREATINE KINASE-MB INDEX (BEAKER) (test hosd=279) 0.7 % CK-MB Reference Range:<6.7 Normal6.7-10.0 Borderline>10.0 AbnormalPOCT-GLUCOSE [id number] 18:13:00 Test Item Value Reference Range Comments POC-GLUCOSE METER (BEAKER) 302 mg/dL 70-110 TESTED AT [address] (test xpsf=8766) [facility] [address] TROPONIN [id number] 17:15:00 Test Item Value Reference Range Comments TROPONIN I (BEAKER) (test xexe=720) 0.32 ng/mL 0.00-0.03 Troponin I (TnI) levels [...] and persistent tachyarrhythmia.CREATINE KINASE (CK), TOTAL AND [id number] 17:05:00 Test Item Value Reference Range Comments CREATINE KINASE TOTAL (BEAKER) (test onne=618) 213 U/L 29-200 CREATINE KINASE-MB (BEAKER) (test xswg=997) 2.1 ng/mL 0.0-6.6 CREATINE KINASE-MB INDEX (BEAKER) (test pvbf=540) 1.0 % CK-MB Reference Range:<6.7 Normal6.7-10.0 Borderline>10.0 AbnormalPOCT-GLUCOSE [id number] 12:22:00 Test Item Value Reference Range Comments POC-GLUCOSE METER (BEAKER) 240 mg/dL 70-110 TESTED AT [address] (test hvav=6015) [place] [id number] B-TYPE NATRIURETIC FACTOR (BNP)[id number] 12:01:00 Test Item Value Reference Range Comments B-TYPE NATRIURETIC PEPTIDE (BEAKER) (test 524 pg/mL 0-100 likj=121) POCT-GLUCOSE [id number] 06:33:00 Test Item Value Reference Range Comments POC-GLUCOSE METER (BEAKER) 227 mg/dL 70-110 TESTED AT [address] (test iabv=9735) [place] [id number] COMPREHENSIVE METABOLIC [id number] 06:19:00 Test Item Value Reference Range Comments TOTAL PROTEIN (BEAKER) 6.7 gm/dL 6.0-8.3 (test loob=881) ALBUMIN (BEAKER) (test 3.2 g/dL 3.5-5.0 nngj=0163) ALKALINE PHOSPHATASE 77 U/L 40-150 (BEAKER) (test imvr=229) BILIRUBIN TOTAL (BEAKER) 0.9 mg/dL 0.2-1.2 (test aksh=092) SODIUM (BEAKER) (test 139 meq/L 136-145 ahdl=953) POTASSIUM (BEAKER) (test 3.7 meq/L 3.5-5.1 tblx=892) CHLORIDE (BEAKER) (test 109 meq/L 98-107 sexp=789) CO2 (BEAKER) (test 18 meq/L 22-29 vmqq=875) BLOOD UREA NITROGEN 13 mg/dL 7-21 (BEAKER) (test zxlt=173) CREATININE (BEAKER) (test 0.69 mg/dL 0.57-1.25 czze=304) GLUCOSE RANDOM (BEAKER) 250 mg/dL 70-105 (test gtfq=598) CALCIUM (BEAKER) (test 8.0 mg/dL 8.4-10.2 wgrc=566) AST (SGOT) (BEAKER) (test 18 U/L 5-34 tbwm=120) ALT (SGPT) (BEAKER) (test 13 U/L 6-55 bthj=535) EGFR (BEAKER) (test 85 mL/min/1.73 sq m ESTIMATED GFR IS NOT erbj=8364) ACCURATE CREATININE CLEARANCE IN PREDICTING GLOMERULAR FILTRATION RATE. ESTIMATED GFR IS NOT APPLICABLE FOR DIALYSIS PATIENTS. BASIC METABOLIC [id number] 06:19:00 Test Item Value Reference Range Comments SODIUM (BEAKER) (test 139 meq/L 136-145 ukoj=551) POTASSIUM (BEAKER) (test 3.7 meq/L 3.5-5.1 dlmm=566) CHLORIDE (BEAKER) (test 109 meq/L 98-107 usoy=004) CO2 (BEAKER) (test 18 meq/L 22-29 afmi=906) BLOOD UREA NITROGEN 13 mg/dL 7-21 (BEAKER) (test tvvz=073) CREATININE (BEAKER) (test 0.69 mg/dL 0.57-1.25 hcgr=968) GLUCOSE RANDOM (BEAKER) 250 mg/dL 70-105 (test bpbe=721) CALCIUM (BEAKER) (test 8.0 mg/dL 8.4-10.2 xvds=222) EGFR (BEAKER) (test 85 mL/min/1.73 sq m ESTIMATED GFR IS NOT dcyj=7065) ACCURATE CREATININE CLEARANCE IN PREDICTING GLOMERULAR FILTRATION RATE. ESTIMATED GFR IS NOT APPLICABLE FOR DIALYSIS PATIENTS. BLOOD GAS, [id number] 06:13:00 Test Item Value Reference Range Comments PH ARTERIAL (BEAKER) (test ivfs=021) 7.42 7.35-7.45 PCO2 ARTERIAL (BEAKER) (test uafc=603) 34 mmHg 35-45 PO2 ARTERIAL (BEAKER) (test tlad=921) 106 mmHg 80-90 O2 SATURATION ARTERIAL (BEAKER) (test afec=056) 98.0 % 96.0-97.0 HCO3 ARTERIAL (BEAKER) (test fvvp=356) 22 mmol/L 21-29 BASE EXCESS ARTERIAL (BEAKER) (test vbux=853) -2.3 mmol/L -2.0-3.0 PATIENT TEMPERATURE (BEAKER) (test hxup=6177) 37.0 C FIO2 (BEAKER) (test wtzk=4160) 50.0 % CBC W/PLT COUNT & AUTO [id number] 05:53:00 Test Item Value Reference Range Comments WHITE BLOOD CELL COUNT (BEAKER) (test ygiu=381) 12.9 K/ L 3.5-10.5 RED BLOOD CELL COUNT (BEAKER) (test hnmr=044) 3.78 M/ L 3.93-5.22 HEMOGLOBIN (BEAKER) (test kgpy=225) 11.9 GM/DL 11.2-15.7 HEMATOCRIT (BEAKER) (test fdwe=436) 35.5 % 34.1-44.9 MEAN CORPUSCULAR VOLUME (BEAKER) (test nlpd=245) 93.9 fL 79.4-94.8 MEAN CORPUSCULAR HEMOGLOBIN (BEAKER) (test 31.5 pg 25.6-32.2 bdda=835) MEAN CORPUSCULAR HEMOGLOBIN CONC (BEAKER) (test 33.5 GM/DL 32.2-35.5 ajkn=079) RED CELL DISTRIBUTION WIDTH (BEAKER) (test 13.5 % 11.7-14.4 xoza=099) PLATELET COUNT (BEAKER) (test trqn=635) 198 K/CU MM 150-450 MEAN PLATELET VOLUME (BEAKER) (test jzlx=429) 12.7 fL 9.4-12.3 NUCLEATED RED BLOOD CELLS (BEAKER) (test 0 /100 WBC 0-0 fxqd=919) NEUTROPHILS RELATIVE PERCENT (BEAKER) (test 77 % ikjw=329) LYMPHOCYTES RELATIVE PERCENT (BEAKER) (test 14 % ecdn=322) MONOCYTES RELATIVE PERCENT (BEAKER) (test 7 % wskv=022) EOSINOPHILS RELATIVE PERCENT (BEAKER) (test 2 % etyl=154) BASOPHILS RELATIVE PERCENT (BEAKER) (test 0 % lmip=666) NEUTROPHILS ABSOLUTE COUNT (BEAKER) (test 9.92 K/ L 1.56-6.13 wygz=446) LYMPHOCYTES ABSOLUTE COUNT (BEAKER) (test 1.74 K/ L 1.18-3.74 nnmx=181) MONOCYTES ABSOLUTE COUNT (BEAKER) (test 0.85 K/ L 0.24-0.36 iedi=654) EOSINOPHILS ABSOLUTE COUNT (BEAKER) (test 0.22 K/ L 0.04-0.36 bfpx=411) BASOPHILS ABSOLUTE COUNT (BEAKER) (test 0.05 K/ L 0.01-0.08 kuik=624) IMMATURE GRANULOCYTES-RELATIVE PERCENT (BEAKER) 1 % 0-1 (test cssa=1897) LACTIC ACID, ARTERIAL, WHOLE [id number] 05:17:00 Test Item Value Reference Range Comments LACTATE BLOOD ARTERIAL (2) (BEAKER) (test 0.8 mmol/L 0.5-2.2 rjea=9165) Effective 09/02/2015: Units/Reference Range ChangeNew: 0.5-2.2 mmol/L Previous: 5 -20 mg/dLRAD, CHEST, 1 VIEW, NON [id number] 03:58:00Reason for exam:-> concern for aspirationShould this be performed at the bedside?->YesFINAL REPORT RAD, CHEST, 1 VIEW, NON DEPT INDICATION: concern for aspiration COMPARISON: Prior day's exam TECHNIQUE: Portable frontal view of the chest. IMPRESSION: Interval extubation.Stable cardiomegaly.Worsening pulmonary interstitial edema.No pneumothorax.No acute osseous abnormality. Signed: Jb Veronica MDReport Verified Date/Time: 07/10/2017 03:58:42 Reading Location: [address] Ortho Consult Reading Room CT, BRAIN, WITHOUT [id number] 03:09:00Reason for exam:->Stroke evaluationFINAL REPORT CT, BRAIN, [...] MDReport Verified Date/Time: 07/10/2017 03:09:32 Reading Location: [facility] B1 [id number] Ortho Consult Reading Room POCT- GLUCOSE [id number] 00:20:00 Test Item Value Reference Range Comments POC-GLUCOSE METER (BEAKER) 200 mg/dL 70-110 TESTED AT [address] (test coam=0179) [facility] [id number] POCT-GLUCOSE [id number] 20:32:00 Test Item Value Reference Range Comments POC-GLUCOSE METER (BEAKER) 237 mg/dL 70-110 TESTED AT [address] (test yvmn=1109) [facility] [address] URINALYSIS W/ [id number] 20:08:00 Test Item Value Reference Range Comments COLOR (BEAKER) (test dleh=747) Light Yellow CLARITY (BEAKER) (test sblb=128) Clear SPECIFIC GRAVITY UA (BEAKER) (test punh=043) 1.009 1.001-1.035 PH UA (BEAKER) (test haea=829) 5.5 5.0-8.0 PROTEIN UA (BEAKER) (test eumw=739) 70 mg/dL Negative GLUCOSE UA (BEAKER) (test auav=501) 50 mg/dL Negative KETONES UA (BEAKER) (test osrt=263) Negative Negative BILIRUBIN UA (BEAKER) (test cbid=687) Negative Negative BLOOD UA (BEAKER) (test mkbk=213) Negative Negative NITRITE UA (BEAKER) (test awst=301) Negative Negative LEUKOCYTE ESTERASE UA (BEAKER) (test tbul=638) Trace Negative UROBILINOGEN UA (BEAKER) (test cbef=565) 0.2 mg/dL 0.2-1.0 RBC UA (BEAKER) (test pcau=032) < /HPF WBC UA (BEAKER) (test qjqo=666) 25 /HPF BACTERIA (BEAKER) (test fcye=315) Rare MUCUS (BEAKER) (test kzxs=6124) Rare SQUAMOUS EPITHELIAL (BEAKER) (test nzju=519) 1 /HPF SOURCE(BEJOSE) (test fzlh=6457) POCT-GLUCOSE [id number] 18:44:00 Test Item Value Reference Range Comments POC-GLUCOSE METER (BEAKER) 174 mg/dL 70-[address] [facility] [address] [facility] (test ltqe=5098) [place] [address] HEMOGLOBIN [id number] 14:47:00 Test Item Value Reference Range Comments HEMOGLOBIN A1C (BINH) (test amfq=411) 12.4 % 4.3-6.1 POCT-GLUCOSE [id number] 11:44:00 Test Item Value Reference Range Comments POC-GLUCOSE METER (BEAKER) 149 mg/dL 70-110 TESTED AT [address] (test zdsc=1364) [place] [address] RAD, CHEST, 1 VIEW, NON [id number] 07:42:00Reason for exam:-> intubatedShould this be performed [...] Verified Date/ Time: 07/09/2017 07:42:12 Reading Location: [facility] B1 C013Y CT Body Reading Room CT BRAIN WITHOUT IV CONTRAST - [id number] 07:37:00Reason for exam:->L. MCA strokeFINAL REPORT CT [...] MDReport Verified Date/Time: 07/09/2017 07:37:39 Reading Location: [facility] B1 C013V Neuro Reading Room TSH/FREE T4 IF [id number] 05:41:00 Test Item Value Reference Range Comments THYROID STIMULATING HORMONE (BEAKER) (test 0.60 uIU/mL 0.35-4.94 cfcl=984) BASIC METABOLIC [id number] 04:33:00 Test Item Value Reference Range Comments SODIUM (BEAKER) (test 138 meq/L 136-145 peus=357) POTASSIUM (BEAKER) (test 3.4 meq/L 3.5-5.1 wplt=347) CHLORIDE (BEAKER) (test 107 meq/L 98-107 vstn=616) CO2 (BEAKER) (test 20 meq/L 22-29 aqee=968) BLOOD UREA NITROGEN 17 mg/dL 7-21 (BEAKER) (test vrsu=888) CREATININE (BEAKER) (test 0.68 mg/dL 0.57-1.25 znpd=343) GLUCOSE RANDOM (BEAKER) 118 mg/dL 70-105 (test jaeu=410) CALCIUM (BEAKER) (test 7.9 mg/dL 8.4-10.2 wglq=665) EGFR (BEAKER) (test mL/min/1.73 sq m INSUFFICIENT CLINICAL DATA lxdo=7150) TO CALCULATE ESTIMATED GFR. LIPID [id number] 04:30:00 Test Item Value Reference Range Comments TRIGLYCERIDES (BEAKER) (test dysy=440) 300 mg/dL CHOLESTEROL (BEAKER) (test fhxc=622) 204 mg/dL HDL CHOLESTEROL (BEAKER) (test cezs=034) 33 mg/dL LDL CHOLESTEROL CALCULATED (BEAKER) (test 111 mg/dL txmv=745) Triglyceride Reference Range: Low Risk <150 Borderline 150- 199 High Risk 200-499 Very High Risk >=500Cholesterol Reference Range: Low Risk <200 Borderline 200-239 High Risk > 240HDL Cholesterol Reference Range: Low Risk >=60 High Risk <40LDL Cholesterol Reference Range: Optimal <100 Near Optimal 100-129 Borderline 130-159 High 160-189 Very High >=190BLOOD GAS, [id number] 04:11:00 Test Item Value Reference Range Comments PH ARTERIAL (BEAKER) (test vmkm=299) 7.42 7.35-7.45 PCO2 ARTERIAL (BEAKER) (test vrnr=745) 37 mmHg 35-45 PO2 ARTERIAL (BEAKER) (test vjck=097) 90 mmHg 80-90 O2 SATURATION ARTERIAL (BEAKER) (test akqc=736) 97.1 % 96.0-97.0 HCO3 ARTERIAL (BEAKER) (test zqfd=872) 24 mmol/L 21-29 BASE EXCESS ARTERIAL (BEAKER) (test dhrh=196) -0.6 mmol/L -2.0-3.0 PATIENT TEMPERATURE (BEAKER) (test bzns=3830) 37.0 C FIO2 (BEAKER) (test mxnv=2843) 40.0 % CBC W/PLT COUNT & AUTO [id number] 04:10:00 Test Item Value Reference Range Comments WHITE BLOOD CELL COUNT (BEAKER) (test omeg=565) 12.9 K/ L 3.5-10.5 RED BLOOD CELL COUNT (BEAKER) (test fbzj=205) 3.88 M/ L 3.93-5.22 HEMOGLOBIN (BEAKER) (test zwbu=483) 12.0 GM/DL 11.2-15.7 HEMATOCRIT (BEAKER) (test psvd=371) 35.8 % 34.1-44.9 MEAN CORPUSCULAR VOLUME (BEAKER) (test rfhv=239) 92.3 fL 79.4-94.8 MEAN CORPUSCULAR HEMOGLOBIN (BEAKER) (test 30.9 pg 25.6-32.2 wnqm=047) MEAN CORPUSCULAR HEMOGLOBIN CONC (BEAKER) (test 33.5 GM/DL 32.2-35.5 zrip=046) RED CELL DISTRIBUTION WIDTH (BEAKER) (test 13.4 % 11.7-14.4 ootz=434) PLATELET COUNT (BEAKER) (test uxei=751) 203 K/CU MM 150-450 MEAN PLATELET VOLUME (BEAKER) (test rvhp=542) 12.7 fL 9.4-12.3 NUCLEATED RED BLOOD CELLS (BEAKER) (test 0 /100 WBC 0-0 agio=004) NEUTROPHILS RELATIVE PERCENT (BEAKER) (test 75 % hjrn=084) LYMPHOCYTES RELATIVE PERCENT (BEAKER) (test 18 % xzdy=754) MONOCYTES RELATIVE PERCENT (BEAKER) (test 6 % ktwj=723) EOSINOPHILS RELATIVE PERCENT (BEAKER) (test 1 % wfxw=375) BASOPHILS RELATIVE PERCENT (BEAKER) (test 0 % xlog=364) NEUTROPHILS ABSOLUTE COUNT (BEAKER) (test 9.66 K/ L 1.56-6.13 wctw=822) LYMPHOCYTES ABSOLUTE COUNT (BEAKER) (test 2.30 K/ L 1.18-3.74 hsdp=673) MONOCYTES ABSOLUTE COUNT (BEAKER) (test 0.76 K/ L 0.24-0.36 ojiq=837) EOSINOPHILS ABSOLUTE COUNT (BEAKER) (test 0.10 K/ L 0.04-0.36 muog=127) BASOPHILS ABSOLUTE COUNT (BEAKER) (test 0.04 K/ L 0.01-0.08 focz=326) IMMATURE GRANULOCYTES-RELATIVE PERCENT (BEAKER) 0 % 0-1 (test datr=0841) BASIC METABOLIC [id number] 23:50:00 Test Item Value Reference Range Comments SODIUM (BEAKER) (test 139 meq/L 136-145 szdu=898) POTASSIUM (BEAKER) (test 3.5 meq/L 3.5-5.1 vyan=274) CHLORIDE (BEAKER) (test 106 meq/L 98-107 zase=823) CO2 (BEAKER) (test 22 meq/L 22-29 hoae=262) BLOOD UREA NITROGEN 19 mg/dL 7-21 (BEAKER) (test gzfp=328) CREATININE (BEAKER) (test 0.68 mg/dL 0.57-1.25 wdfp=059) GLUCOSE RANDOM (BEAKER) 114 mg/dL 70-105 (test gayj=060) CALCIUM (BEAKER) (test 8.2 mg/dL 8.4-10.2 pqvb=157) EGFR (BEAKER) (test mL/min/1.73 sq m INSUFFICIENT CLINICAL DATA ijrk=0661) TO CALCULATE ESTIMATED GFR. HEPATIC FUNCTION [id number] 23:26:00 Test Item Value Reference Range Comments TOTAL PROTEIN (BEAKER) (test eauz=311) 6.7 gm/dL 6.0-8.3 ALBUMIN (BEAKER) (test gsof=5092) 3.3 g/dL 3.5-5.0 BILIRUBIN TOTAL (BEAKER) (test xctc=334) 0.4 mg/dL 0.2-1.2 BILIRUBIN DIRECT (BEAKER) (test vlun=397) 0.2 mg/dL 0.1-0.5 ALKALINE PHOSPHATASE (BEAKER) (test omjy=253) 76 U/L 40-150 AST (SGOT) (BEAKER) (test dqmk=111) 22 U/L 5-34 ALT (SGPT) (BEAKER) (test gayc=298) 16 U/L 6-55 CBC W/PLT COUNT & AUTO [id number] 23:25:00 Test Item Value Reference Range Comments WHITE BLOOD CELL COUNT (BEAKER) (test erge=356) 14.1 K/ L 3.5-10.5 RED BLOOD CELL COUNT (BEAKER) (test puji=835) 4.01 M/ L 3.93-5.22 HEMOGLOBIN (BEAKER) (test iwsf=834) 12.6 GM/DL 11.2-15.7 HEMATOCRIT (BEAKER) (test xbai=418) 36.7 % 34.1-44.9 MEAN CORPUSCULAR VOLUME (BEAKER) (test jyci=956) 91.5 fL 79.4-94.8 MEAN CORPUSCULAR HEMOGLOBIN (BEAKER) (test 31.4 pg 25.6-32.2 gatj=234) MEAN CORPUSCULAR HEMOGLOBIN CONC (BEAKER) (test 34.3 GM/DL 32.2-35.5 daes=643) RED CELL DISTRIBUTION WIDTH (BEAKER) (test 13.2 % 11.7-14.4 bgap=653) PLATELET COUNT (BEAKER) (test osom=722) 212 K/CU MM 150-450 MEAN PLATELET VOLUME (BEAKER) (test imgl=777) 12.6 fL 9.4-12.3 NUCLEATED RED BLOOD CELLS (BEAKER) (test 0 /100 WBC 0-0 bzrj=372) NEUTROPHILS RELATIVE PERCENT (BEAKER) (test 78 % rbkb=928) LYMPHOCYTES RELATIVE PERCENT (BEAKER) (test 15 % hjwr=085) MONOCYTES RELATIVE PERCENT (BEAKER) (test 7 % yiqs=375) EOSINOPHILS RELATIVE PERCENT (BEAKER) (test 1 % ovnc=554) BASOPHILS RELATIVE PERCENT (BEAKER) (test 0 % qymy=025) NEUTROPHILS ABSOLUTE COUNT (BEAKER) (test 10.90 K/ L 1.56-6.13 yfab=296) LYMPHOCYTES ABSOLUTE COUNT (BEAKER) (test 2.10 K/ L 1.18-3.74 ofbb=523) MONOCYTES ABSOLUTE COUNT (BEAKER) (test 0.92 K/ L 0.24-0.36 mnod=735) EOSINOPHILS ABSOLUTE COUNT (BEAKER) (test 0.09 K/ L 0.04-0.36 jsum=441) BASOPHILS ABSOLUTE COUNT (BEAKER) (test 0.03 K/ L 0.01-0.08 itir=832) IMMATURE GRANULOCYTES-RELATIVE PERCENT (BEAKER) 0 % 0-1 (test cvlz=4301) PROTHROMBIN [id number] 23:12:00 Test Item Value Reference Range Comments PROTIME (BEAKER) (test sgns=847) 14.2 seconds 11.7-14.7 INR (BEAKER) (test gjgn=008) 1.1 <=5.9 RECOMMENDED COUMADIN/WARFARIN INR THERAPY RANGESSTANDARD DOSE: 2.0 - 3.0 Includes: PROPHYLAXIS forvenous thrombosis, systemic embolization; TREATMENT for venous thrombosis and/or pulmonary embolus.HIGH RISK: Target INR is 2.5-3.5 for patients with mechanical heart valves.POCT-GLUCOSE [id number] 21:38:00 Test Item Value Reference Range Comments POC-GLUCOSE METER (BEAKER) 94 mg/dL 70-[address] [facility] [address] [facility] (test uvhf=2821) [place] [address] VAN, COMMON CAROTID OR INNOMINATE W EXTRACRANIAL [...] common femoral artery x1 MATERIALS EMPLOYED:1. 8 Filipino short sheath 2. 5 Filipino 125cm diagnostic catheter3. Bentson guidewire4. Terumo 0.035 LT glidewire5. Flowgate 8f Balloon Guide Catheter8. 8 Filipino Angioseal device INDICATIONS:The patient is a 67-year- old female with history of hypertension, diabetes and prior stroke who presented with acute onset aphasia in her hometown of [place] around 11:00 AM. She was evaluated and transferred to [facility] for further evaluation treatment. On arrival, [...] the puncture site was confirmed, a 8 Filipino short sheath was inserted over a [employer] Solutionsson wire and was maintained on heparinized saline flush throughout the remainder of the procedure. Using coaxial technique, a preflushed 5 Filipino 125cm diagnostic glide catheter on constant heparinized saline flush was placed through a pre- flushed and pre-prepped 8 Filipino Flowgate balloon Guide catheter. The two catheters [...] removed and hemostasis achieved with an 8 Filipino Angioseal and manual compression. The patient tolerated [...] Verified Date/Time: 07/08/2017 18: 24:25 Reading Location: [facility] Y8 Neuro Angio Reading Room CTCAT [id number] 15:00:00FINAL REPORT CLINICAL HISTORY: Stroke TECHNIQUE: Contiguous [...] FINDINGS: There is no evidence for a nikolski of Steele first order branch vessel occlusion. [...] MDReport Verified Date/Time: 2017 15:00:43 Reading Location: [address] Neuro Reading Room CT, CAROTID , [id number] 15:00:00FINAL REPORT CLINICAL HISTORY: Stroke TECHNIQUE: Contiguous [...] FINDINGS: There is no evidence for a nikolski of Steele first order branch vessel occlusion. [...] MDReport Verified Date/Time: 2017 15:00:43 Reading Location: [address] Neuro Reading Room CT, CEREBRAL PERFUSION [id number] 15:00:00FINAL REPORT CLINICAL HISTORY: Stroke TECHNIQUE: Contiguous [...] FINDINGS: There is no evidence for a nikolski of Steele first order branch vessel occlusion. [...] Verified Date/ Time: 07/08/2017 15:00:43 Reading Location: [address] Neuro [facility] [id number] 14:24:00FINAL REPORT CT Head without contrast CLINICAL [...] MDReport Verified Date/Time: 07/08/2017 14:24:44 Reading Location: [address] Neuro Reading Room
[2018-11-07 09:36] LABS: Basophils % 0.3 % (0-1.3); Eosinophils % 0.1 % (0-4.4); Hematocrit 37.3 % (36.0-45.0); Lymphocytes % 6.2 % (15.3-44.8); MPV 9.1 fL (7.6-11.3); Monocytes % 9.1 % (3.3-12.3)
--- NOTE | 2018-11-07 09:53 | EKG ---
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
[2018-11-07 09:58] LABS: Albumin 2.4 g/dL (3.4-5.0); Bilirubin Direct 0.2 mg/dL (0-0.2); Bilirubin Total 0.6 mg/dL (0.2-1.0); Magnesium 2.8 mg/dL (1.8-2.4); Protein, Total 8.4 g/dL (6.4-8.2)
--- NOTE | 2018-11-07 09:59 | ER ---
Nurse's Notes [facility] Name: Apoorva Christie Age: 68 yrs Sex: Female : 1950 Arrival Date: 11/07/2018 Time: 09:02 Bed 5 Private MD: Diagnosis: GI BLeed - lower Presentation: 11/07 09:02 Presenting complaint: EMS states: pt from [facility], pt started having tw2 rectal bleeding this morning, they noticed a pool of blood under her bottom, she tried to hold pressure but keeps bleeding, she is on blood thinners, she also has LOW BLOOD SUGAR, 56 after glucagon at [facility], we got 27 mg/dL, but pt is A\\T\\Ox3. Transition of care: patient was received from another setting of care (long-term care facility), [facility]. Onset of symptoms was November 07, 2018. Risk Assessment: Do you want to hurt yourself or someone else? Patient reports no desire to harm self or others. Initial Sepsis Screen: Does the patient meet any 2 criteria? No. Patient's initial sepsis screen is negative. Does the patient have a suspected source of infection? No. Patient's initial sepsis screen is negative. Care prior to arrival: Medication(s) given: ORAL GLUCOSE TAB. 09:02 Method Of Arrival: EMS: [facility] tw2 09:02 Acuity: AWA 1 tw2 Triage Assessment: 09:02 General: Appears in no apparent distress. Behavior is cooperative. Pain: Complains of tw2 pain in "my bottom". EENT: No signs and/or symptoms were reported regarding the EENT system. Neuro: Level of Consciousness is awake, obeys commands, Oriented to person, place. Cardiovascular: Heart tones S1 S2 Capillary refill is sluggish Dialysis shunt: in the upper RIGHT chest and LEFT AC. Respiratory: Airway is patent Respiratory effort is even, unlabored, Respiratory pattern is regular, symmetrical, Breath sounds are clear bilaterally. GI: Abdomen is round Bowel sounds present X 4 quads. GI: Reports rectal bleeding. : Reports. Derm: Skin is thin, Skin is dry, Skin is pale, Reports "wound to my left ankle". Musculoskeletal: Range of motion: limited in left shoulder and left elbow. Historical: - Allergies: 09:46 codeine sulfate; tw2 - Home Meds: 09:46 Depakote ER 500 mg Oral Tb24 1 tab once daily [Active]; Exelon 9.5 mg/24 hr patch Oral tw2 [Active]; ferrous sulfate 325 mg (65 mg iron) Oral TbEC [Active]; amlodipine 10 mg tab [Active]; Novolog 100 unit/mL Sub-Q soln [Active]; tramadol 50 mg Oral tab 1 tab every 4 hours [Active]; trazodone 50 mg Oral tab 1 tab 3 times per day [Active]; Velphoro 500 mg oral chew 1 tab 3 times per day [Active]; Nifedipine ER 30 mg Oral [Active]; lorazepam 0.5 mg Oral tab 1 tab 3 times per day [Active]; insulin detemir, 100 unit/ml - 35 unit subq in morning [Active]; hydralazine 50 mg Oral tab 1 tab 2 times per day [Active]; clopidogrel 75 mg oral tab 1 tab once daily [Active]; aspirin 81 mg Oral chew [Active]; atorvastatin 20 mg Oral tab 1 tab once daily [Active]; carvedilol 12.5 mg oral tab [Active]; - PMHx: 09:46 brain blockage; Cirrhosis; CVA; Diabetes - IDDM; meningitis; Hypertension; progressive tw2 tremors; ESRD; - Immunization history:: Adult Immunizations. - Social history:: Smoking status: . - Ebola Screening: : Patient denies travel to an Ebola-affected area in the 21 days before illness onset. Screenin:50 Abuse screen: Denies threats or abuse. Nutritional screening: No deficits noted. tw2 Tuberculosis screening: No symptoms or risk factors identified. Fall Risk Secondary diagnosis (15 points) impaired mobility, CVA, Mental Status- Overestimates/Forgets Limitations (15 pts.). Assessment: 09:05 Reassessment: see triage assessment. tw2 09:30 Reassessment: Turned pt to the left to clean pt of incontinence. Pt had a large red sv blood clot and pt continued to have blood clots come out from her rectum, Dr Pollock called to room to assess the pt. pt cleaned up and clean pads and brief placed on pt. 10:16 Reassessment: Pt cleaned of incontinence. Pt had large amounts of blood clots and hard sv black stool. Informed Dr Pollock. 10:18 Reassessment: Re-evaluation of lopez catheter at this time, lopez is unclamped at this tw2 time, cristo urine noted flowing at this time, will continue to monitor, pillow placed under pts back at this time. 10:37 Reassessment: Patient appears in no apparent distress at this time. Patient and/or tw2 family updated on plan of care and expected duration. Pain level reassessed. 11:00 Reassessment: Left voicemail for Beth (daughter) to call us back. sv 11:30 Reassessment: Patient appears in no apparent distress at this time. No changes from tw2 previously documented assessment. Patient and/or family updated on plan of care and expected duration. Pain level reassessed. Vital Signs: 09:06 BP 113 / 62; Pulse 90; Resp 17; Temp 96.8(TE); Pulse Ox 95% on R/A; Pain 0/10; tw2 10:00 BP 114 / 72; Pulse 92; Resp 19; Pulse Ox 99% on R/A; tw2 10:36 BP 110 / 74; Pulse 92; Resp 22; Pulse Ox 100% on R/A; tw2 11:04 BP 90 / 52; Pulse 89 MON; Resp 24; Pulse Ox 95% on R/A; sv 11:21 BP 86 / 51; Pulse 87 MON; Resp 18; Pulse Ox 97% on R/A; sv 11:04 Sinus Rhythm sv 11:21 Sinus Rhythm sv ED Course: 09:02 Patient arrived in ED. tw2 09:09 Triage completed. tw2 09:16 Vicente Pollock MD is Attending Physician. kdr 09:20 retail marketing specialist on. Pulse ox on. NIBP on. Door closed. Warm blanket given. Head of bed sv elevated. 09:21 EKG done, by insulator technician. reviewed by Vicente Pollock MD. at1 09:25 Missed attempt(s): 22 gauge in right antecubital area. Bleeding controlled, band aid sv applied, catheter tip intact. 09:28 Initial lab(s) drawn, by me, sent to lab. T\\T\\S collected, blood band applied to patient. sv Inserted saline lock: 22 gauge in right antecubital area, using aseptic technique. Blood collected. Flushed right antecubital with 5 ml normal saline. 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 sv 09:32 Radiology exam delayed due to IV insertion attempt and/or patient not having mh1 appropriate IV at this time. change clothes, clean up pt, put in Lopez. 09:34 Lopez cath inserted, using sterile technique, 16 Fr., by me, balloon inflated, to sv gravity drainage, returned clear yellow urine. Patient tolerated well. 09:39 X-ray completed. Portable x-ray completed in exam room. Patient tolerated procedure mh1 well. 09:39 Arm band placed on. sv 09:39 Patient has correct armband on for positive identification. Placed in gown. Bed in low sv position. Call light in reach. Side rails up X2. 09:43 XRAY Chest (1 view) In Process Unspecified. EDMS 10:15 Laura Wisdom RN is Primary Nurse. tw2 10:29 Missed attempt(s): 22 gauge in right hand. butterfly attempt for repeat H\\T\\H, lab tw2 notified.. Bleeding controlled, band aid applied, catheter tip intact. 11:45 transfer transportation to receiving facility. sv 11:45 Patient transferred, IV remains in place. intact. sv Administered Medications: 09:28 Drug: D50W 50 ml Route: IVP; Site: right antecubital; sv 10:00 Follow up: Response: No adverse reaction; Blood sugar is elevated sv 10:16 Drug: ProTONIX 80 mg Route: IVP; Site: right antecubital; sv 10:34 Follow up: Response: No adverse reaction tw2 10:59 Drug: NS 0.9% 250 ml Route: IV; Rate: bolus; Site: right antecubital; sv 11:51 Follow up: Response: No adverse reaction; IV Status: Completed infusion; IV Intake: tw2 250ml Point of Care Testing: Blood Glucose: 09:06 Blood Glucose: 38 mg/dL; tw2 09:31 Blood Glucose: 143 mg/dL; ss 09:55 Blood Glucose: 156 mg/dL; tw2 11:24 Blood Glucose: 292 mg/dL; tw2 09:06 notified provider SHIRLEY Tobar, glucagon ordered, iv access still pending at this tw2 time. Ranges: Intake: 11:51 IV: 250ml; Total: 250ml. tw2 10:00 provider notified of dark, brown urine noted, lopez clamped at this time, will tw2 re-evaluate in 15 minutes Output: 10:00 Urine: 1000ml (Lopez); Total: 1000ml. tw2 10:00 provider notified of dark, brown urine noted, lopez clamped at this time, will tw2 re-evaluate in 15 minutes Outcome: 09:58 ER care complete, transfer ordered by . sonal 11:32 Transferred by ground EMS to [facility], Transfer form completed. sv Note: Report given to Ayleen DAVISON 11:32 Condition: stable 11:32 Instructed on the need for transfer. 12:01 Patient left the ED. ss Signatures: Dispatcher [employer] Barb Richardson RN RN Vicente Jernigan MD MD kdr Harvey, Martha mh1 Kathy Simpson RN RN Love Hrading, fender mechanic apprentice EKG Tat1 Laura Wisdom RN RN tw2 Corrections: (The following items were deleted from the chart) 09:10 09:02 Presenting complaint: EMS states: pt from [facility], pt started tw2 having rectal bleeding this morning, they noticed a pool of blood under her bottom, she tried to hold pressure but keeps bleeding, she is on blood thinners, she also has LOW BLOOD SUGAR, 56 after glucagon at [facility], we got 27 mg/dL tw2 09:47 09:02 Acuity: AWA 2 tw2 tw2 10:38 10:18 Reassessment: Re-evaluation of lopez catheter at this time, lopez is unclamped at tw2 this time, cristo urine noted flowing at this time, will continue to monitor tw2
--- NOTE | 2018-11-07 10:00 | EDPHYS ---
Physician Documentation [facility] Name: Apoorva Christie Age: 68 yrs Sex: Female : 1950 Arrival Date: 11/07/2018 Time: 09:02 Bed 5 Private MD: ED Physician Vicente Pollock HPI: 11/07 17:44 This 68 yrs old Female presents to ER via EMS with complaints of Rectal kdr Bleeding, Low Blood Sugar. 17:44 The patient presents to the emergency department with bleeding from the rectum/anus, kdr that is moderate. Onset: The symptoms/episode began/occurred just prior to arrival, this morning. Context: the patient The patient has had a history of rectal bleeding. Was at breakfast this morning and was noted to have blood collecting under her wheelchair. Modifying factors: The symptoms are alleviated by nothing, The symptoms are aggravated by bowel movement, sitting position. Associate signs and symptoms: Pertinent positives: lower GI bleeding, Pertinent negatives: constipation, diarrhea, dysuria, fever. The patient has experienced similar episodes in the past, several times. The patient has been recently seen by a physician:. Historical: - Allergies: 09:46 codeine sulfate; tw2 - Home Meds: 09:46 Depakote ER 500 mg Oral Tb24 1 tab once daily [Active]; Exelon 9.5 mg/24 hr patch Oral tw2 [Active]; ferrous sulfate 325 mg (65 mg iron) Oral TbEC [Active]; amlodipine 10 mg tab [Active]; Novolog 100 unit/mL Sub-Q soln [Active]; tramadol 50 mg Oral tab 1 tab every 4 hours [Active]; trazodone 50 mg Oral tab 1 tab 3 times per day [Active]; Velphoro 500 mg oral chew 1 tab 3 times per day [Active]; Nifedipine ER 30 mg Oral [Active]; lorazepam 0.5 mg Oral tab 1 tab 3 times per day [Active]; insulin detemir, 100 unit/ml - 35 unit subq in morning [Active]; hydralazine 50 mg Oral tab 1 tab 2 times per day [Active]; clopidogrel 75 mg oral tab 1 tab once daily [Active]; aspirin 81 mg Oral chew [Active]; atorvastatin 20 mg Oral tab 1 tab once daily [Active]; carvedilol 12.5 mg oral tab [Active]; - PMHx: 09:46 brain blockage; Cirrhosis; CVA; Diabetes - IDDM; meningitis; Hypertension; progressive tw2 tremors; ESRD; - Immunization history:: Adult Immunizations. - Social history:: Smoking status: . - Ebola Screening: : Patient denies travel to an Ebola-affected area in the 21 days before illness onset. ROS: 17:44 Constitutional: Negative for fever, chills, and weight loss, Eyes: Negative for injury, kdr pain, redness, and discharge, ENT: Negative for injury, pain, and discharge, Neck: Negative for injury, pain, and swelling, Cardiovascular: Negative for chest pain, palpitations, and edema, Respiratory: Negative for shortness of breath, cough, wheezing, and pleuritic chest pain, Back: Negative for injury and pain, : Negative for injury, bleeding, discharge, and swelling, MS/Extremity: Negative for injury and deformity, Skin: Negative for injury, rash, and discoloration, Neuro: Negative for headache, weakness, numbness, tingling, and seizure activity. Psych: Negative for depression, anxiety, suicide ideation, homicidal ideation, and hallucinations, Allergy/Immunology: Negative for hives, rash, and allergies, Endocrine: Negative for neck swelling, polydipsia, polyuria, polyphagia, and marked weight changes, Hematologic/Lymphatic: Negative for swollen nodes, abnormal bleeding, and unusual bruising. 17:44 Abdomen/GI: Positive for abdominal pain, rectal bleeding. Exam: 17:51 Constitutional: This is a well developed, well nourished patient who is awake, alert, kdr and in no acute distress. Head/Face: Normocephalic, atraumatic. Eyes: Pupils equal round and reactive to light, extra-ocular motions intact. Lids and lashes normal. Conjunctiva and sclera are non-icteric and not injected. Cornea within normal limits. Periorbital areas with no swelling, redness, or edema. Neck: Trachea midline, no thyromegaly or masses palpated, and no cervical lymphadenopathy. Supple, full range of motion without nuchal rigidity, or vertebral point tenderness. No Meningismus. Chest/axilla: Normal chest wall appearance and motion. Nontender with no deformity. No lesions are appreciated. Cardiovascular: Regular rate and rhythm with a normal S1 and S2. No gallops, murmurs, or rubs. Normal PMI, no JVD. No pulse deficits. Respiratory: Lungs have equal breath sounds bilaterally, clear to auscultation and percussion. No rales, rhonchi or wheezes noted. No increased work of breathing, no retractions or nasal flaring. Back: No spinal tenderness. No costovertebral tenderness. Full range of motion. Skin: Warm, dry with normal turgor. Normal color with no rashes, no lesions, and no evidence of cellulitis. MS/ Extremity: Pulses equal, no cyanosis. Neurovascular intact. Full, normal range of motion. Neuro: Awake and alert, GCS 15, oriented to person, place, time, and situation. Cranial nerves II-XII grossly intact. Motor strength 5/5 in all extremities. Sensory grossly intact. Cerebellar exam normal. Normal gait. 17:51 Abdomen/GI: Inspection: abdomen appears normal, obese Bowel sounds: diminished, in all quadrants, Palpation: soft, mild abdominal tenderness, in the right lower quadrant and left lower quadrant, Rectal exam: rectal tone normal, Stool: grossly bloody, guaiac positive. Vital Signs: 09:06 BP 113 / 62; Pulse 90; Resp 17; Temp 96.8(TE); Pulse Ox 95% on R/A; Pain 0/10; tw2 10:00 BP 114 / 72; Pulse 92; Resp 19; Pulse Ox 99% on R/A; tw2 10:36 BP 110 / 74; Pulse 92; Resp 22; Pulse Ox 100% on R/A; tw2 11:04 BP 90 / 52; Pulse 89 MON; Resp 24; Pulse Ox 95% on R/A; sv 11:21 BP 86 / 51; Pulse 87 MON; Resp 18; Pulse Ox 97% on R/A; sv 11:04 Sinus Rhythm sv 11:21 Sinus Rhythm sv MDM: 09:58 Patient medically screened. kdr 17:51 Data reviewed: vital signs, nurses notes, lab test result(s). Counseling: I had a kdr detailed discussion with the patient and/or guardian regarding: the historical points, exam findings, and any diagnostic results supporting the discharge/admit diagnosis, lab results, radiology results, the need to transfer to another facility. 11/07 09:08 Order name: Basic Metabolic Panel; Complete Time: 10:38 ms 11/07 09:08 Order name: CBC with Diff; Complete Time: 09:50 ms 11/07 09:08 Order name: LFT's; Complete Time: 10:38 ms 11/07 09:08 Order name: Magnesium; Complete Time: 10:38 ms 11/07 09:08 Order name: NT PRO-BNP; Complete Time: 10:38 ms 11/07 09:08 Order name: PT-INR; Complete Time: 09:50 ms 11/07 09:08 Order name: Troponin (emerg Dept Use Only); Complete Time: 10:38 ms 11/07 09:08 Order name: XRAY Chest (1 view); Complete Time: 10:38 ms 11/07 09:08 Order name: Glucose, Ancillary Testing; Complete Time: 09:50 EDMS 11/07 09:08 Order name: Type And Screen; Complete Time: 10:47 ms 11/07 09:35 Order name: Occult Blood--Ancillary sv 11/07 10:03 Order name: Urine Dipstick--Ancillary (enter results); Complete Time: 10:38 ms 11/07 10:22 Order name: Hemoglobin; Complete Time: 11:08 ms 11/07 10:22 Order name: Hematocrit; Complete Time: 11:08 ms 11/07 09:08 Order name: EKG; Complete Time: 09:09 ms 11/07 09:08 Order name: Cardiac monitoring; Complete Time: 09:37 ms 11/07 09:08 Order name: EKG - Nurse/Tech; Complete Time: 09:36 ms 11/07 09:08 Order name: IV Saline Lock; Complete Time: 09:36 ms 11/07 09:08 Order name: Labs collected and sent; Complete Time: 09:36 ms 11/07 09:08 Order name: O2 Per Protocol; Complete Time: 09:36 ms 11/07 09:08 Order name: O2 Sat Monitoring; Complete Time: 09:37 ms Administered Medications: 09:28 Drug: D50W 50 ml Route: IVP; Site: right antecubital; sv 10:00 Follow up: Response: No adverse reaction; Blood sugar is elevated sv 10:16 Drug: ProTONIX 80 mg Route: IVP; Site: right antecubital; sv 10:34 Follow up: Response: No adverse reaction tw2 10:59 Drug: NS 0.9% 250 ml Route: IV; Rate: bolus; Site: right antecubital; sv 11:51 Follow up: Response: No adverse reaction; IV Status: Completed infusion; IV Intake: tw2 250ml Point of Care Testing: Blood Glucose: 09:06 Blood Glucose: 38 mg/dL; tw2 09:31 Blood Glucose: 143 mg/dL; ss 09:55 Blood Glucose: 156 mg/dL; tw2 11:24 Blood Glucose: 292 mg/dL; tw2 09:06 notified provider SHIRLEY Tobar, glucagon ordered, iv access still pending at this tw2 time. Ranges: Critical Glucose Levels:Adult <50 mg/dl or >400 mg/dl <40 mg/dl or >180 mg/dl Disposition: 11/07/18 09:58 Transfer ordered to [facility]. Diagnosis is GI BLeed - lower. - Reason for transfer: Higher level of care. - Accepting physician is Accepting. - Condition is Serious. - Problem is new. - Symptoms have improved. Signatures: Dispatcher [employer] Barb Richardson, SAMAN RN Vicente Jernigan MD MD kdr Solis, Maria ms Smirch, Shelby, RN RN ss Wise, Tara, RN RN tw2 Corrections: (The following items were deleted from the chart) 12:01 09:58 11/07/2018 09:58 Transfer ordered to [facility]. Diagnosis is ss GI BLeed - lower. Reason for transfer: Higher level of care. Accepting physician is Accepting. Condition is Serious. Problem is new. Symptoms have improved. kdr
--- NOTE | 2018-11-07 10:10 | RAD REPORT ---
EXAM DESCRIPTION: RAD - Chest Single View - 11/07/2018 9:41 am CLINICAL HISTORY: WEAKNESS Chest pain. COMPARISON: Chest Single View dated 06/19/2018; Chest Single View dated 06/17/2018; Chest Single View dated 01/01/2018; Chest Single View dated 08/31/2017 FINDINGS: Portable technique limits examination quality. The lungs are grossly clear. The heart is normal in size. No displaced fractures.Right-sided venous c atheter has tip in the SVC. IMPRESSION: No acute intrathoracic process suspected.
[2018-11-07 10:11] LABS: Troponin (Emerg Dept Use Only) 0.93 ng/mL (0.0-0.045)
[2018-11-07 10:19] LABS: Urine Blood TRACE (NEG); Urine Glucose NEGATIVE (NEG); Urine Protein 2+ (NEG); Urine Specific Gravity 1.015 (1.005-1.030)
[2018-11-07] MEDS ORDERED: PANTOPRAZOLE 40 MG INJ ONE (10:19)
[2018-11-07 10:48] LABS: Hematocrit 33.6 % (36.0-45.0)
[2018-11-07] MEDS ORDERED: NA CHLORIDE 0.9% 250 ML ONE (11:09)
== END 2018-11-07 12:01 | disposition short-term general hospital (02) ==
LOC: ER 09:00
DX: K92.2 Gastrointestinal hemorrhage, unspecified (principal); E11.22 Type 2 diabetes mellitus with diabetic chronic kidney disease; I12.0 Hypertensive chronic kidney disease with stage 5 chronic kidney disease or end stage renal disease; N18.6 End stage renal disease; Z79.82 Long term (current) use of aspirin; Z79.4 Long term (current) use of insulin; Z88.5 Allergy status to narcotic agent
CPT/HCPCS: 96365; 93005; 85025; 80048; 36415; 86900; 83735; 86850; 85610; 86901; 82962 ×4; 80076; 82272; 85018; 85014; 81003; 84484; 83880; 71045; 51702; 96375; 99291; C9113

== ENCOUNTER 2018-12-04 11:52 | Observation (INO) | payer OTHER ==
--- OUTSIDE RECORDS SUMMARY | 2018-12-04 11:56 | XMS REPORT | Clinical Summary ---
:1950 Author Organization [facility] [employer] Address [address] [place] [address] Care Team Providers Name Role Phone Chapin [...] Encounter General Surgery Gilles Quigley MD after 12/03/2017 Social History Tobacco Use Types Packs/Day Years [...] primary anesthetic Staff: Anesthesiologist: Ema Chung MD Resident/AMMONIUM SULFATE OPERATOR/AA: Ghislaine Farah CRNA Performed by: Anesthesiologist Preprocedure: [...] SCREEN Routine 10/15/2018 12:36 PM CDT after 12/03/2017 Results POC glucose (10/15/2018 3:39 PM CDT)Only the most recent of2 resultswithin the time period is included. POC glucose 111 (H) 65 - 99 mg/dL ELLIOTT MEHTA Comment: [facility] RN Notified Meter ID: [id number] Satellite Dish Installer: René Lieberman Specimen Performing Organization Address City/State/Zipcode Phone Number [facility] DEPARTMENT OF PATHOLOGY [address] [place] [address] AND GENOMIC MEDICINE [facility] [address] [place] [address] HOSPITAL XR Chest 1 Vw Portable (10/15/2018 1:06 PM CDT) Specimen Narrative Performed At EXAMINATION:XR CHEST 1 VW PORTABLE [facility] CLINICAL HISTORY:Pre-Op COMPARISON:No IMPRESSION: Right IJ approach double lumen central line, tips projecting over the SVC. No pneumothorax identified. Cardiac silhouette and pulmonary vasculature within normal as. No lobar consolidation or pleural effusion identified on the frontal view(s). Cholecystectomy. [facility]-[id number] Procedure Note Hm Interface, Radiology Results Incoming - 10/15/2018 2:17 PM CDT EXAMINATION: XR CHEST 1 VW PORTABLE CLINICAL HISTORY: Pre-Op COMPARISON: No IMPRESSION: Right IJ approach double lumen central line, tips projecting over the SVC. No pneumothorax identified. Cardiac silhouette and pulmonary vasculature within normal as. No lobar consolidation or pleural effusion identified on the frontal view(s). Cholecystectomy. [facility]-[id number] Performing Organization Address [facility] Phone Number [facility] [address] [place] [address] ECG 12 lead (10/15/2018 12:45 PM CDT) Ventricular rate 59 [facility] MUSE Atrial rate 59 [facility] M[facility] HI interval 172 [facility] M[facility] QRSD interval 72 [...] Specimen Narrative Performed At Performing Organization Address [facility] Phone Number [facility] [employer] [address] [place] [address] POC panel 4 (10/15/2018 12:42 PM CDT) POC sodium 139 135 - 148 [facility] mmol/L [facility] POC potassium 4.5 3.5 - 5.0 [facility] mmol/L [facility] POC hematocrit 34 (L) 37 - 47 % [facility] POC glucose 62 (L) 65 - 99 mg/dL [facility] POC hemoglobin 11.6 (L) 12.0 - 16.0 [facility] Comment: g/dL [place] Meter ID: [id number] HOSPITAL Satellite Dish Installer: Kemp Candice Specimen Blood Performing Organization Address [facility] Phone Number [facility] DEPARTMENT OF PATHOLOGY [address] [place] [address] Estimated GFR (10/15/2018 12:36 PM CDT) Pathologist [facility] Estimated GFR 16 (A) mL/min/1.73 ELLIOTT MEHTA Comment: [address] CatergoryUnitsInterpretation HOSPITAL G1 >=90 Normal or high G2 60-89Mildly decreased [id number] to moderately decreased [id number] to severely decreased G4 15-29Severely decreased G5 <15Kidney failure The eGFR was calculated using the Chronic Kidney Disease Epidemiology Collaboration (CKD-EPI) equation. Interpretation is based on recommendations of the National Kidney Foundation-Kidney Disease Outcomes Quality Initiative (NKF-KDOQI) published in 2014. Specimen Plasma specimen Performing Organization Address [facility] Phone Number [facility] DEPARTMENT OF PATHOLOGY [address] [place] [address] Partial thromboplastin time, activated (10/15/2018 12:36 PM CDT) Pathologist [facility] PTT 41.3 (H) 23.0 - 36.0 ELLIOTT MEHTA Comment: [facility] PTT therapeutic range for unfractionated heparin is HOSPITAL 61.0-112.0 seconds which corresponds to Anti-Xa 0.3-0.7 U/ml. Specimen Blood Performing Organization Address [facility] Phone Number [facility] DEPARTMENT OF PATHOLOGY [address] [place] [address] Prothrombin time with INR (10/15/2018 12:36 PM CDT) Pathologist [facility] Prothrombin time 13.3 11.5 - 14.5 [facility] INR 1.0 [place] Comment: JANINE MANCILLA [facility] International Normalized Ratio (INR) is a [facility] monitoring tool for patients who are stable on oral anticoagulant therapy. An INR of 2.0-3.0 is suggested for deep vein thrombosis/pulmonary embolism. Specimen Blood Performing Organization Address [facility]/State/Zipcode Phone Number [facility] DEPARTMENT OF PATHOLOGY [address] [place] [address] AND [facility] [id number] [place] [address] HOSPITAL CBC with platelet and differential (10/15/2018 12:36 PM CDT) WBC 7.3 4.5 - 11.0 k/uL [facility] RBC 3.39 (L) 4.20 - 5.50 [facility] m/uL [facility] HGB 10.7 (L) 12.0 - 16.0 [facility] g/dL [facility] HCT 34.2 (L) 37.0 - 47.0 % [facility] MCV 100.9 (H) 82.0 - 100.0 fL [facility] MCH 31.6 27.0 - 34.0 pg [facility] MCHC 31.3 31.0 - 37.0 [facility] g/dL [facility] RDW - SD 51.3 37.0 - 55.0 fL [facility] MPV 10.6 6.9 - 11.0 fL [facility] Platelet count 236 150 - 400 K/uL [facility] Nucleated RBC 0.00 /100 WBC [facility] Neutrophils 63.8 39.0 - 69.0 % [facility] Lymphocytes 21.7 (L) 25.0 - 45.0 % [facility] Monocytes 10.5 (H) 0.0 - 10.0 % [facility] Eosinophils 3.3 0.0 - 5.0 % [facility] Basophils 0.4 0.0 - 1.0 % [facility] Immature granulocytes 0.3 0.0 - 1.0 % [facility] Specimen Blood Performing Organization Address City/State/Zipcode Phone Number [facility] DEPARTMENT OF PATHOLOGY [address] [place] [address] AND [facility] [id number] [place] [address] HOSPITAL Type and screen (10/15/2018 12:36 PM CDT) ABO grouping O [facility] Rh type POS [facility] Antibody screen (gel) NEG [facility] Specimen Blood Performing Organization Address City/State/Zipcode Phone Number [facility] DEPARTMENT OF PATHOLOGY [id number] [place] [address] Basic metabolic panel (10/15/2018 12:36 PM CDT) Sodium 138 135 - 148 mEq/L [facility] Potassium 4.6 3.5 - 5.0 mEq/L [facility] Chloride 99 98 - 112 mEq/L [facility] CO2 28 24 - 31 mEq/L [facility] Anion gap 11@ANIO 7 - 15 mEq/L [facility] BUN 56 (H) 8 - 23 mg/dL [facility] Creatinine 2.88 (H) 0.50 - 0.90 mg/dL [facility] Glucose 66 65 - 99 mg/dL [facility] Calcium 9.0 8.8 - 10.2 mg/dL [facility] Specimen Plasma specimen Performing Organization Address City/State/Zipcode Phone Number [facility] DEPARTMENT OF PATHOLOGY [id number] [place] [address] [place] [address] HOSPITAL after 12/03/2017 Insurance Payer Benefit Plan / Subscriber ID Effective Dates Phone Address Type Group MEDICARE MEDICARE PART A xxxxxxxxxxx 2017-Present [place], [place] Medicare AND B Advance Directives Patient has advance care planning documents on file. For more information, please contact:Elliott [id number] [address]
[2018-12-04] MEDS ORDERED: METOPROLOL TARTRATE 5 MG/5 ML INJ IV ONE ×2 (11:59→12:05)
[2018-12-04 12:16] LABS: Protime INR 1.01
--- OUTSIDE RECORDS SUMMARY | 2018-12-04 12:20 | XMS REPORT ---
:1950 [facility] Address [address] [place] [address] Care Team Providers Name Role Phone EFRAIN SALAZAR Unavailable Unavailable KATELYN PALUMBO Unavailable Unavailable CHAD, MICHAEL MALIK Unavailable Unavailable MIREYAON, ANNIE Unavailable Unavailable EMILIANO, VALENTÍN ZAMARRIPA Unavailable Unavailable Problems This patient has no known problems. Allergies, Adverse Reactions, Alerts This patient has no known allergies or adverse reactions. Medications This patient has no known medications. Results Test Description Test Time Test Comments Text Results Atomic Results Result Comments ZULEMA BROWN 2018-11-20 17:02:00 Reason for FINAL REPORT PATIENT ID: CATHETER INSERTION exam:->non working [id number] Procedure: current access Removal of nonfunctioning right internal jugular vein tunneled hemodialysis catheter placed in the catheter with new access, 11/15/2018 HISTORY: Nonfunctioning catheter Anesthesia: 2% lidocaine Sedation: None Approach: Right chest and internal jugular vein Modality: Ultrasound and fluoroscopy, fluoroscopy time: 5.6 minutes, total dose: 42 mGy, reference air kerma method technique: After obtaining written informed consent, this procedure was performed using all elements maximal sterile barrier technique. There are no immediate postprocedural complications. The nonfunctioning right internal jugular vein tunneled hemodialysis catheter was evaluated with fluoroscopy. There is a hiatal looped up into the neck of the TIPS the catheter is in the upper portion the superior vena cava. A guidewire was advanced through the indwelling catheter in attempt to reduce the buccal in the neck and repositioned centrally. Despite use of several guidewires, the catheter could not be advanced further. This catheter was removed and ultrasound was used to scan the veins of the right neck. A patent internal jugular vein was identified. Images the patent vein were saved on PACS. Using real-time ultrasound guidance, the internal jugular vein was accessed percutaneously. A guidewire was advanced centrally. A fresh tunneled hemodialysis catheter was tunneled subcutaneously and advanced into the new access of the internal jugular vein. The catheter was positioned with its tip in the mid right atrium and secured in place by means of sutures. CONCLUSION: Prior tunneled dialysis catheter was looped in the neck and could not be advanced centrally four hemodialysis.. Removal of this catheter and placement of new device requiring new access site. Signed: Carrie Quinteros MDReport Verified Date/Time: 11/20/2018 17:02:10 Reading Location: [facility] Diagnostic Imaging Reading Room - [facility] 1.310.12 -GLUCOSE METER 2018-11-16 08:18:00 Test Item Value Reference Range Comments POC-GLUCOSE METER (BEAKER) (test 151 mg/dL 70-[address] [facility] [address] pnyn=[id number]) [facility] [address] [id number] 07:13:00 Test Item Value Reference Range Comments PHOSPHORUS (BEAKER) (test lexj=594) 1.8 mg/dL 2.3-4.7 [id number] 07:13:00 Test Item Value Reference Range Comments MAGNESIUM (BEAKER) (test ykaa=945) 1.8 mg/dL 1.6-2.6 BASIC METABOLIC [id number] 07:13:00 Test Item Value Reference Range Comments SODIUM (BEAKER) (test 133 meq/L 136-145 ykxc=049) POTASSIUM (BEAKER) (test 3.8 meq/L 3.5-5.1 oaca=123) CHLORIDE (BEAKER) (test 103 meq/L 98-107 bnpx=605) CO2 (BEAKER) (test 24 meq/L 22-29 hint=215) BLOOD UREA NITROGEN 12 mg/dL 7-21 (BEAKER) (test plmb=655) CREATININE (BEAKER) (test 1.43 mg/dL 0.57-1.25 iipk=856) GLUCOSE RANDOM (BEAKER) 163 mg/dL 70-105 (test flen=949) CALCIUM (BEAKER) (test 8.2 mg/dL 8.4-10.2 dvfs=106) EGFR (BEAKER) (test 37 mL/min/1.73 sq m ESTIMATED GFR IS NOT poif=1531) ACCURATE CREATININE CLEARANCE IN PREDICTING GLOMERULAR FILTRATION RATE. ESTIMATED GFR IS NOT APPLICABLE FOR DIALYSIS PATIENTS. PROTHROMBIN [id number] 06:07:00 Test Item Value Reference Range Comments PROTIME (BEAKER) (test tzgu=089) 13.6 seconds 11.9-14.2 INR (BEAKER) (test fvie=725) 1.1 <=5.9 Effective 09/26/2018: PT Reference Range ChangeNew: 11.9-14.2 Previous: 11.7- 14.7RECOMMENDED COUMADIN/WARFARIN INR THERAPY RANGESSTANDARD DOSE: 2.0-3.0 Includes: PROPHYLAXIS for venous thrombosis, systemic embolization; TREATMENT for venous thrombosis and/or pulmonary embolus.HIGH RISK: Target INR is2.5-3.5 for patients wiht mechanical heart valves.CBC W/PLT COUNT & AUTO [id number] 06:01:00 Test Item Value Reference Range Comments WHITE BLOOD CELL COUNT (BEAKER) (test gfej=638) 11.4 K/ L 3.5-10.5 RED BLOOD CELL COUNT (BEAKER) (test xpns=868) 2.67 M/ L 3.93-5.22 HEMOGLOBIN (BEAKER) (test hitn=308) 8.2 GM/DL 11.2-15.7 HEMATOCRIT (BEAKER) (test slmf=566) 25.3 % 34.1-44.9 MEAN CORPUSCULAR VOLUME (BEAKER) (test gbkj=784) 94.8 fL 79.4-94.8 MEAN CORPUSCULAR HEMOGLOBIN (BEAKER) (test 30.7 pg 25.6-32.2 yraa=702) MEAN CORPUSCULAR HEMOGLOBIN CONC (BEAKER) (test 32.4 GM/DL 32.2-35.5 lfif=269) RED CELL DISTRIBUTION WIDTH (BEAKER) (test 15.5 % 11.7-14.4 pwqk=190) PLATELET COUNT (BEAKER) (test mvfp=099) 208 K/CU MM 150-450 MEAN PLATELET VOLUME (BEAKER) (test sqdf=354) 11.6 fL 9.4-12.3 NUCLEATED RED BLOOD CELLS (BEAKER) (test 0 /100 WBC 0-0 qhit=110) NEUTROPHILS RELATIVE PERCENT (BEAKER) (test 76 % dpvy=428) LYMPHOCYTES RELATIVE PERCENT (BEAKER) (test 13 % bgqn=104) MONOCYTES RELATIVE PERCENT (BEAKER) (test 8 % ggfa=851) EOSINOPHILS RELATIVE PERCENT (BEAKER) (test 2 % oned=169) BASOPHILS RELATIVE PERCENT (BEAKER) (test 0 % hxun=439) NEUTROPHILS ABSOLUTE COUNT (BEAKER) (test 8.62 K/ L 1.56-6.13 yzus=993) LYMPHOCYTES ABSOLUTE COUNT (BEAKER) (test 1.47 K/ L 1.18-3.74 wazt=015) MONOCYTES ABSOLUTE COUNT (BEAKER) (test 0.87 K/ L 0.24-0.36 bzmh=396) EOSINOPHILS ABSOLUTE COUNT (BEAKER) (test 0.24 K/ L 0.04-0.36 vjzi=500) BASOPHILS ABSOLUTE COUNT (BEAKER) (test 0.05 K/ L 0.01-0.08 ihtu=995) IMMATURE GRANULOCYTES-RELATIVE PERCENT (BEAKER) 1 % 0-1 (test ufps=4748) CALCIUM, [id number] 05:55:00 Test Item Value Reference Range Comments CALCIUM IONIZED (BEAKER) (test rrmw=049) 1.10 mmol/L 1.12-1.27 PH, BLOOD (BEAKER) (test rrlg=1469) 7.49 POCT-GLUCOSE [id number] 23:51:00 Test Item Value Reference Range Comments POC-GLUCOSE METER (BEAKER) 159 mg/dL 70-[address] [facility] [address] (test qcmz=7444) [facility] [address] POCT-GLUCOSE [id number] 19:52:00 Test Item Value Reference Range Comments POC-GLUCOSE METER (BEAKER) 149 mg/dL 70-110 TESTED AT [place] [id number] [facility] (test lojq=4674) [facility] [address] TISSUE [id number] 15:37:00Surgical Pathology Report Case: [id number] Authorizing Provider: Waleska Vera Collected: 11/08/2018 1616 MD Jing OrderingLocation: [place] [address] ICU Received: 2018 0846 Pathologist: Anika Donaldson MD Specimen: Duodenum, Submucosal Mass Bx A. 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 No submucosal tissue was identified. Recommend close clinical follow-up. 01990YN bleedDuodenum, submucosal mass biopsyThe case is received in one part labeled with the patient's name, Kylee Beavers, date of 1950 and accession number [id number] which corresponds to accompanying requisition page labeled with the same name and accession number. Received in formalin labeled "duodenum" is a 0.4 x 0.3 x 0.2 cm bingham-brown irregular piece of tissue. The specimen submitted in toto following filtration in cassette A1. RP/pl Sections show a suboptimal oriented small bowel mucosa with intact villous architecture. There is sparse acute inflammation in the lamina propria with marked paneth cell metaplasia.The deeper section x3 does not show submucosal tissue. No viral cytopathic change or granuloma or dysplasia is seen.POCT-GLUCOSE [id number] 13:18:00 Test Item Value Reference Range Comments POC-GLUCOSE METER (BEAKER) 166 mg/dL 70-110 TESTED AT [address] (test txwb=6191) [facility] [address] ANG, ARTERIAL EMBOLIZATION FOR [id number] 09:59:00Reason for exam:-> rectal bleedingFINAL REPORT Mesenteric angiogram with embolization of a bleeding superior rectal branch. History: Rectal bleeding. Modality: Fluoroscopy Sedation: None Anesthesia: Two percent Lidocaine withoutepinephrine. Approach: Right common femoral artery Estimated blood loss: < 5 cc. Specimen: None. dehydration unit operator: Brendan Antonio MD. Transcriptionist: MD Atif. Fluoroscopy Time: 11.2 min.Reference Air Kerma (Ka, r): 600.7 mGy. Technique: Informed written consent was obtained. Discussion of risks, benefits, and alternatives were made with the patient's family. The patient's family expressed understanding and agreed to proceed. A universal timeoutwas performed prior to starting the procedure. All elements maximal sterile barrier technique was utilized for this procedure, including utilization of sterile scrub solution for skin prep, a large sterile sheet to cover the areas of the patient that were not prepped, and hand hygiene, mask, head covering, and sterile gown for performing radiologist and scrub technologist. The right common femoral artery was accessed with a micropuncture set. Access was scaled up in the usual sterile fashion and a 5 Kyrgyz vascular sheath was placed. A Summers 2.5 catheter was used to select the inferior mesenteric artery. Digital subtraction angiography was performed which demonstrated active hemorrhage arising from a right branch of the superior rectal artery. A [facility] microcatheter and fathom wire were then used to select the bleeding superior rectal branch. The guidewire was removed and a DSA was performed whichconfirmed that the bleeding vessel was selected. Next multiple Concerto microcoils were used to embolize the bleeding branch. After embolization was performed repeat DSA was performed which demonstrated that there is no residual active hemorrhage. The catheters were then removed. A angiogram of the right common femoral artery access was performed to evaluate the vessel for placement of a closure device. No contraindications to closure device placement or found. A 5 Kyrgyz minx device was then deployed as the sheath was removed. Impression: Active arterial extravasation from a right superior rectal branch which was successfully coil embolized. Signed: Brendan AntonioMDReport Verified Date/Time: 11/15/2018 09:59:54 Reading Location: [place] [address] Angio Body Reading Room POCT-GLUCOSE [id number] 08:43:00 Test Item Value Reference Range Comments POC-GLUCOSE METER (BEAKER) 172 mg/dL 70-110 TESTED AT [address] (test uobc=1251) [facility] [address] COMPREHENSIVE METABOLIC [id number] 07:41:00 Test Item Value Reference Range Comments TOTAL PROTEIN (BEAKER) 5.5 gm/dL 6.0-8.3 (test lvkm=916) ALBUMIN (BEAKER) (test 2.5 g/dL 3.5-5.0 qotl=3573) ALKALINE PHOSPHATASE 80 U/L 40-150 (BEAKER) (test vwph=371) BILIRUBIN TOTAL (BEAKER) 0.2 mg/dL 0.2-1.2 (test qhlw=305) SODIUM (BEAKER) (test 132 meq/L 136-145 ykvx=408) POTASSIUM (BEAKER) (test 4.0 meq/L 3.5-5.1 xozx=918) CHLORIDE (BEAKER) (test 102 meq/L 98-107 mlle=295) CO2 (BEAKER) (test 24 meq/L 22-29 tbtw=884) BLOOD UREA NITROGEN 25 mg/dL 7-21 (BEAKER) (test hrak=799) CREATININE (BEAKER) (test 2.50 mg/dL 0.57-1.25 gfta=064) GLUCOSE RANDOM (BEAKER) 147 mg/dL 70-105 (test cvdu=706) CALCIUM (BEAKER) (test 7.8 mg/dL 8.4-10.2 tfga=695) AST (SGOT) (BEAKER) (test 12 U/L 5-34 dmex=002) ALT (SGPT) (BEAKER) (test 11 U/L 6-55 czsd=052) EGFR (BEAKER) (test 19 mL/min/1.73 sq m ESTIMATED GFR IS NOT wawb=3228) ACCURATE CREATININE CLEARANCE IN PREDICTING GLOMERULAR FILTRATION RATE. ESTIMATED GFR IS NOT APPLICABLE FOR DIALYSIS PATIENTS. [id number] 07:25:00 Test Item Value Reference Range Comments PHOSPHORUS (BEAKER) (test zdce=209) 3.3 mg/dL 2.3-4.7 [id number] 07:25:00 Test Item Value Reference Range Comments MAGNESIUM (BEAKER) (test hxcm=460) 1.8 mg/dL 1.6-2.6 CALCIUM, [id number] 05:35:00 Test Item Value Reference Range Comments CALCIUM IONIZED (BEAKER) (test ujkv=385) 1.02 mmol/L 1.12-1.27 PH, BLOOD (BEAKER) (test ogbb=1393) 7.56 CBC W/PLT COUNT & AUTO [id number] 05:01:00 Test Item Value Reference Range Comments WHITE BLOOD CELL COUNT (BEAKER) (test lksk=005) 10.4 K/ L 3.5-10.5 RED BLOOD CELL COUNT (BEAKER) (test qmvg=497) 2.65 M/ L 3.93-5.22 HEMOGLOBIN (BEAKER) (test ahxz=709) 8.2 GM/DL 11.2-15.7 HEMATOCRIT (BEAKER) (test gayq=988) 24.7 % 34.1-44.9 MEAN CORPUSCULAR VOLUME (BEAKER) (test mukp=587) 93.2 fL 79.4-94.8 MEAN CORPUSCULAR HEMOGLOBIN (BEAKER) (test 30.9 pg 25.6-32.2 rtbg=370) MEAN CORPUSCULAR HEMOGLOBIN CONC (BEAKER) (test 33.2 GM/DL 32.2-35.5 hdpm=054) RED CELL DISTRIBUTION WIDTH (BEAKER) (test 15.8 % 11.7-14.4 gpwn=720) PLATELET COUNT (BEAKER) (test wizw=006) 198 K/CU MM 150-450 MEAN PLATELET VOLUME (BEAKER) (test ysfk=266) 11.4 fL 9.4-12.3 NUCLEATED RED BLOOD CELLS (BEAKER) (test 0 /100 WBC 0-0 mbhs=389) NEUTROPHILS RELATIVE PERCENT (BEAKER) (test 68 % pxcm=147) LYMPHOCYTES RELATIVE PERCENT (BEAKER) (test 19 % zsho=748) MONOCYTES RELATIVE PERCENT (BEAKER) (test 8 % afja=861) EOSINOPHILS RELATIVE PERCENT (BEAKER) (test 3 % fwhu=126) BASOPHILS RELATIVE PERCENT (BEAKER) (test 1 % zjip=459) NEUTROPHILS ABSOLUTE COUNT (BEAKER) (test 7.05 K/ L 1.56-6.13 vzwi=691) LYMPHOCYTES ABSOLUTE COUNT (BEAKER) (test 1.95 K/ L 1.18-3.74 vgmx=217) MONOCYTES ABSOLUTE COUNT (BEAKER) (test 0.85 K/ L 0.24-0.36 fhls=804) EOSINOPHILS ABSOLUTE COUNT (BEAKER) (test 0.32 K/ L 0.04-0.36 bsnm=373) BASOPHILS ABSOLUTE COUNT (BEAKER) (test 0.07 K/ L 0.01-0.08 kxpl=661) IMMATURE GRANULOCYTES-RELATIVE PERCENT (BEAKER) 2 % 0-1 (test hzmr=5323) POCT-GLUCOSE [id number] 21:40:00 Test Item Value Reference Range Comments POC-GLUCOSE METER (BEAKER) 210 mg/dL 70-[address] [facility] [address] (test pxua=2530) [facility] [address] POCT-GLUCOSE [id number] 18:42:00 Test Item Value Reference Range Comments POC-GLUCOSE METER (BEAKER) 145 mg/dL 70-[address] [facility] [address] [address] (test bnzc=8495) [facility] [address] POCT-GLUCOSE [id number] 12:18:00 Test Item Value Reference Range Comments POC-GLUCOSE METER (BEAKER) 165 mg/dL 70-110 TESTED AT [address] (test fuch=2433) [facility] [address] POCT-GLUCOSE [id number] 08:39:00 Test Item Value Reference Range Comments POC-GLUCOSE METER (BEAKER) 136 mg/dL 70-110 TESTED AT [address] (test wlda=5353) [facility] [address] [id number] 06:32:00 Test Item Value Reference Range Comments PHOSPHORUS (BEAKER) (test cxbw=099) 2.6 mg/dL 2.3-4.7 [id number] 06:32:00 Test Item Value Reference Range Comments MAGNESIUM (BEAKER) (test ixun=401) 1.8 mg/dL 1.6-2.6 BASIC METABOLIC [id number] 06:32:00 Test Item Value Reference Range Comments SODIUM (BEAKER) (test 134 meq/L 136-145 mmzx=047) POTASSIUM (BEAKER) (test 3.7 meq/L 3.5-5.1 vroz=506) CHLORIDE (BEAKER) (test 103 meq/L 98-107 zuef=092) CO2 (BEAKER) (test 25 meq/L 22-29 pikm=598) BLOOD UREA NITROGEN 14 mg/dL 7-21 (BEAKER) (test qtzc=202) CREATININE (BEAKER) (test 1.57 mg/dL 0.57-1.25 vsht=057) GLUCOSE RANDOM (BEAKER) 121 mg/dL 70-105 (test teay=477) CALCIUM (BEAKER) (test 8.1 mg/dL 8.4-10.2 ifnz=854) EGFR (BEAKER) (test 33 mL/min/1.73 sq m ESTIMATED GFR IS NOT eckl=4978) ACCURATE CREATININE CLEARANCE IN PREDICTING GLOMERULAR FILTRATION RATE. ESTIMATED GFR IS NOT APPLICABLE FOR DIALYSIS PATIENTS. CALCIUM, [id number] 06:03:00 Test Item Value Reference Range Comments CALCIUM IONIZED (BEAKER) (test lkpd=596) 1.02 mmol/L 1.12-1.27 PH, BLOOD (BEAKER) (test wukl=0218) 7.49 CBC W/PLT COUNT & AUTO [id number] 05:50:00 Test Item Value Reference Range Comments WHITE BLOOD CELL COUNT (BEAKER) (test oaao=096) 11.1 K/ L 3.5-10.5 RED BLOOD CELL COUNT (BEAKER) (test flqw=251) 2.86 M/ L 3.93-5.22 HEMOGLOBIN (BEAKER) (test ikqv=891) 8.8 GM/DL 11.2-15.7 HEMATOCRIT (BEAKER) (test ycmo=903) 26.7 % 34.1-44.9 MEAN CORPUSCULAR VOLUME (BEAKER) (test sdgd=089) 93.4 fL 79.4-94.8 MEAN CORPUSCULAR HEMOGLOBIN (BEAKER) (test 30.8 pg 25.6-32.2 qfzn=798) MEAN CORPUSCULAR HEMOGLOBIN CONC (BEAKER) (test 33.0 GM/DL 32.2-35.5 gvgr=556) RED CELL DISTRIBUTION WIDTH (BEAKER) (test 15.4 % 11.7-14.4 ctoh=323) PLATELET COUNT (BEAKER) (test dktn=481) 174 K/CU MM 150-450 MEAN PLATELET VOLUME (BEAKER) (test igwd=641) 11.1 fL 9.4-12.3 NUCLEATED RED BLOOD CELLS (BEAKER) (test 0 /100 WBC 0-0 zhud=062) NEUTROPHILS RELATIVE PERCENT (BEAKER) (test 68 % ngsn=879) LYMPHOCYTES RELATIVE PERCENT (BEAKER) (test 16 % paue=817) MONOCYTES RELATIVE PERCENT (BEAKER) (test 10 % huar=806) EOSINOPHILS RELATIVE PERCENT (BEAKER) (test 3 % ecib=367) BASOPHILS RELATIVE PERCENT (BEAKER) (test 1 % rjrv=264) NEUTROPHILS ABSOLUTE COUNT (BEAKER) (test 7.54 K/ L 1.56-6.13 ofor=108) LYMPHOCYTES ABSOLUTE COUNT (BEAKER) (test 1.76 K/ L 1.18-3.74 vcxb=316) MONOCYTES ABSOLUTE COUNT (BEAKER) (test 1.11 K/ L 0.24-0.36 diop=809) EOSINOPHILS ABSOLUTE COUNT (BEAKER) (test 0.34 K/ L 0.04-0.36 zcey=369) BASOPHILS ABSOLUTE COUNT (BEAKER) (test 0.08 K/ L 0.01-0.08 cfdt=940) IMMATURE GRANULOCYTES-RELATIVE PERCENT (BEAKER) 2 % 0-1 (test pzri=0551) POCT-GLUCOSE [id number] 21:33:00 Test Item Value Reference Range Comments POC-GLUCOSE METER (BEAKER) 178 mg/dL 70-110 TESTED AT [address] (test wvav=1695) [place] [address] POCT-GLUCOSE [id number] 18:03:00 Test Item Value Reference Range Comments POC-GLUCOSE METER (BEAKER) 125 mg/dL 70-110 TESTED AT [address] (test uubs=8094) [place] [address] POCT-GLUCOSE [id number] 11:45:00 Test Item Value Reference Range Comments POC-GLUCOSE METER (BEAKER) 134 mg/dL 70-110 TESTED AT [address] (test nzbl=6871) [place] [address] BASIC METABOLIC [id number] 08:43:00 Test Item Value Reference Range Comments SODIUM (BEAKER) (test 131 meq/L 136-145 kmzc=859) POTASSIUM (BEAKER) (test 3.9 meq/L 3.5-5.1 jolp=675) CHLORIDE (BEAKER) (test 98 meq/L 98-107 klup=503) CO2 (BEAKER) (test 24 meq/L 22-29 mquu=918) BLOOD UREA NITROGEN 31 mg/dL 7-21 (BEAKER) (test ocpn=132) CREATININE (BEAKER) (test 2.59 mg/dL 0.57-1.25 zduy=768) GLUCOSE RANDOM (BEAKER) 84 mg/dL 70-105 (test qmho=108) CALCIUM (BEAKER) (test 8.0 mg/dL 8.4-10.2 knvu=992) EGFR (BEAKER) (test 18 mL/min/1.73 sq m ESTIMATED GFR IS NOT fjif=1935) ACCURATE CREATININE CLEARANCE IN PREDICTING GLOMERULAR FILTRATION RATE. ESTIMATED GFR IS NOT APPLICABLE FOR DIALYSIS PATIENTS. [id number] 08:23:00 Test Item Value Reference Range Comments MAGNESIUM (BEAKER) (test mgfd=151) 1.6 mg/dL 1.6-2.6 POCT-GLUCOSE [id number] 08:12:00 Test Item Value Reference Range Comments POC-GLUCOSE METER (BEAKER) 93 mg/dL 70-[address] [facility] [address] (test nzzm=7290) [place] [address] CBC W/PLT COUNT & AUTO [id number] 07:07:00 Test Item Value Reference Range Comments WHITE BLOOD CELL COUNT (BEAKER) (test khee=811) 11.6 K/ L 3.5-10.5 RED BLOOD CELL COUNT (BEAKER) (test ljqm=948) 2.93 M/ L 3.93-5.22 HEMOGLOBIN (BEAKER) (test pfnv=326) 9.0 GM/DL 11.2-15.7 HEMATOCRIT (BEAKER) (test smlu=141) 26.6 % 34.1-44.9 MEAN CORPUSCULAR VOLUME (BEAKER) (test epgu=671) 90.8 fL 79.4-94.8 MEAN CORPUSCULAR HEMOGLOBIN (BEAKER) (test 30.7 pg 25.6-32.2 qnle=729) MEAN CORPUSCULAR HEMOGLOBIN CONC (BEAKER) (test 33.8 GM/DL 32.2-35.5 dkaj=326) RED CELL DISTRIBUTION WIDTH (BEAKER) (test 14.9 % 11.7-14.4 fdmh=228) PLATELET COUNT (BEAKER) (test yrmb=226) 170 K/CU MM 150-450 MEAN PLATELET VOLUME (BEAKER) (test erka=052) 10.5 fL 9.4-12.3 NUCLEATED RED BLOOD CELLS (BEAKER) (test 0 /100 WBC 0-0 cadf=574) NEUTROPHILS RELATIVE PERCENT (BEAKER) (test 69 % rhmu=953) LYMPHOCYTES RELATIVE PERCENT (BEAKER) (test 14 % usid=964) MONOCYTES RELATIVE PERCENT (BEAKER) (test 9 % ztzv=006) EOSINOPHILS RELATIVE PERCENT (BEAKER) (test 4 % vpgh=439) BASOPHILS RELATIVE PERCENT (BEAKER) (test 1 % ylgu=671) NEUTROPHILS ABSOLUTE COUNT (BEAKER) (test 8.02 K/ L 1.56-6.13 xpbr=203) LYMPHOCYTES ABSOLUTE COUNT (BEAKER) (test 1.63 K/ L 1.18-3.74 cxlb=029) MONOCYTES ABSOLUTE COUNT (BEAKER) (test 1.06 K/ L 0.24-0.36 tizh=795) EOSINOPHILS ABSOLUTE COUNT (BEAKER) (test 0.43 K/ L 0.04-0.36 hlwo=779) BASOPHILS ABSOLUTE COUNT (BEAKER) (test 0.07 K/ L 0.01-0.08 ofir=005) IMMATURE GRANULOCYTES-RELATIVE PERCENT (BEAKER) 3 % 0-1 (test upmc=9651) CALCIUM, [id number] 06:26:00 Test Item Value Reference Range Comments CALCIUM IONIZED (BEAKER) (test bigk=181) 1.02 mmol/L 1.12-1.27 PH, BLOOD (BEAKER) (test lazl=1736) 7.49 POCT-GLUCOSE [id number] 21:15:00 Test Item Value Reference Range Comments POC-GLUCOSE METER (BEAKER) 137 mg/dL 70-110 TESTED AT [address] (test dxhp=6292) [facility] [address] BLOOD [id number] 20:02:00 Test Item Value Reference Range Comments CULTURE (BEAKER) (test eezo=6996) No growth in 5 days BLOOD [id number] 20:02:00 Test Item Value Reference Range Comments CULTURE (BEAKER) (test uzpf=8854) No growth in 5 days POCT-GLUCOSE [id number] 11:22:00 Test Item Value Reference Range Comments POC-GLUCOSE METER (BEAKER) 235 mg/dL 70-110 TESTED AT [address] (test rxel=4758) [facility] [address] HEMOGLOBIN [id number] 09:10:00 Test Item Value Reference Range Comments HEMOGLOBIN A1C (BEAKER) (test becm=505) 5.6 % 4.3-6.1 COMPREHENSIVE METABOLIC [id number] 07:15:00 Test Item Value Reference Range Comments TOTAL PROTEIN (BEAKER) 5.5 gm/dL 6.0-8.3 (test vwaz=665) ALBUMIN (BEAKER) (test 2.6 g/dL 3.5-5.0 zfep=4365) ALKALINE PHOSPHATASE 82 U/L 40-150 (BEAKER) (test sdqp=147) BILIRUBIN TOTAL (BEAKER) 0.3 mg/dL 0.2-1.2 (test ynkm=340) SODIUM (BEAKER) (test 130 meq/L 136-145 sdrx=596) POTASSIUM (BEAKER) (test 3.7 meq/L 3.5-5.1 luew=482) CHLORIDE (BEAKER) (test 98 meq/L 98-107 alay=198) CO2 (BEAKER) (test 25 meq/L 22-29 enwa=882) BLOOD UREA NITROGEN 25 mg/dL 7-21 (BEAKER) (test ittw=611) CREATININE (BEAKER) (test 2.34 mg/dL 0.57-1.25 tcdc=006) GLUCOSE RANDOM (BEAKER) 136 mg/dL 70-105 (test rrxf=528) CALCIUM (BEAKER) (test 7.8 mg/dL 8.4-10.2 euic=630) AST (SGOT) (BEAKER) (test 13 U/L 5-34 melk=068) ALT (SGPT) (BEAKER) (test 11 U/L 6-55 etpf=138) EGFR (BEAKER) (test 21 mL/min/1.73 sq m ESTIMATED GFR IS NOT arzq=1958) ACCURATE CREATININE CLEARANCE IN PREDICTING GLOMERULAR FILTRATION RATE. ESTIMATED GFR IS NOT APPLICABLE FOR DIALYSIS PATIENTS. [id number] 07:13:00 Test Item Value Reference Range Comments PHOSPHORUS (BEAKER) (test rsum=681) 3.6 mg/dL 2.3-4.7 [id number] 07:13:00 Test Item Value Reference Range Comments MAGNESIUM (BEAKER) (test igba=764) 1.7 mg/dL 1.6-2.6 CALCIUM, [id number] 06:50:00 Test Item Value Reference Range Comments CALCIUM IONIZED (BEAKER) (test vkta=664) 1.02 mmol/L 1.12-1.27 PH, BLOOD (BEAKER) (test lkyi=3388) 7.46 CBC W/PLT COUNT & AUTO [id number] 06:43:00 Test Item Value Reference Range Comments WHITE BLOOD CELL COUNT (BEAKER) (test eedj=672) 9.3 K/ L 3.5-10.5 RED BLOOD CELL COUNT (BEAKER) (test lvhr=835) 2.74 M/ L 3.93-5.22 HEMOGLOBIN (BEAKER) (test bhzw=554) 8.3 GM/DL 11.2-15.7 HEMATOCRIT (BEAKER) (test uihe=036) 25.1 % 34.1-44.9 MEAN CORPUSCULAR VOLUME (BEAKER) (test kauf=010) 91.6 fL 79.4-94.8 MEAN CORPUSCULAR HEMOGLOBIN (BEAKER) (test 30.3 pg 25.6-32.2 izhn=081) MEAN CORPUSCULAR HEMOGLOBIN CONC (BEAKER) (test 33.1 GM/DL 32.2-35.5 hgrz=057) RED CELL DISTRIBUTION WIDTH (BEAKER) (test 16.1 % 11.7-14.4 omub=164) PLATELET COUNT (BEAKER) (test kmvt=434) 154 K/CU MM 150-450 MEAN PLATELET VOLUME (BEAKER) (test ovuh=894) 10.3 fL 9.4-12.3 NUCLEATED RED BLOOD CELLS (BEAKER) (test 0 /100 WBC 0-0 lcwj=550) NEUTROPHILS RELATIVE PERCENT (BEAKER) (test 64 % uiet=233) LYMPHOCYTES RELATIVE PERCENT (BEAKER) (test 16 % itnl=844) MONOCYTES RELATIVE PERCENT (BEAKER) (test 10 % bvwx=594) EOSINOPHILS RELATIVE PERCENT (BEAKER) (test 5 % oday=945) BASOPHILS RELATIVE PERCENT (BEAKER) (test 1 % zwph=193) NEUTROPHILS ABSOLUTE COUNT (BEAKER) (test 5.95 K/ L 1.56-6.13 asmu=267) LYMPHOCYTES ABSOLUTE COUNT (BEAKER) (test 1.50 K/ L 1.18-3.74 ngay=819) MONOCYTES ABSOLUTE COUNT (BEAKER) (test 0.95 K/ L 0.24-0.36 swej=870) EOSINOPHILS ABSOLUTE COUNT (BEAKER) (test 0.43 K/ L 0.04-0.36 vxxw=038) BASOPHILS ABSOLUTE COUNT (BEAKER) (test 0.09 K/ L 0.01-0.08 yblt=782) IMMATURE GRANULOCYTES-RELATIVE PERCENT (BEAKER) 5 % 0-1 (test czec=4079) POCT-GLUCOSE [id number] 06:30:00 Test Item Value Reference Range Comments POC-GLUCOSE METER (BEAKER) 157 mg/dL 70-110 TESTED AT [address] (test tyqr=7103) [facility] [address] POCT-GLUCOSE [id number] 21:39:00 Test Item Value Reference Range Comments POC-GLUCOSE METER (BEAKER) 137 mg/dL 70-110 TESTED AT [address] (test bafb=9009) [facility] [address] POCT-GLUCOSE [id number] 17:53:00 Test Item Value Reference Range Comments POC-GLUCOSE METER (BEAKER) 327 mg/dL 70-110 TESTED AT [address] (test apvc=2719) [facility] [address] POCT-GLUCOSE [id number] 14:50:00 Test Item Value Reference Range Comments POC-GLUCOSE METER (BEAKER) 361 mg/dL 70-110 TESTED AT [address] (test ykcf=3648) [facility] [address] POCT-GLUCOSE [id number] 05:30:00 Test Item Value Reference Range Comments POC-GLUCOSE METER (BEAKER) 199 mg/dL 70-110 TESTED AT [address] (test fdwm=4877) [facility] [address] [id number] 01:48:00 Test Item Value Reference Range Comments PHOSPHORUS (BEAKER) (test hwej=423) 1.3 mg/dL 2.3-4.7 COMPREHENSIVE METABOLIC [id number] 01:46:00 Test Item Value Reference Range Comments TOTAL PROTEIN (BEAKER) 5.0 gm/dL 6.0-8.3 (test qnph=976) ALBUMIN (BEAKER) (test 2.3 g/dL 3.5-5.0 dkwk=4992) ALKALINE PHOSPHATASE 81 U/L 40-150 (BEAKER) (test nwqy=235) BILIRUBIN TOTAL (BEAKER) 0.4 mg/dL 0.2-1.2 (test tckt=349) SODIUM (BEAKER) (test 135 meq/L 136-145 grdm=023) POTASSIUM (BEAKER) (test 3.1 meq/L 3.5-5.1 zyyr=668) CHLORIDE (BEAKER) (test 106 meq/L 98-107 uovt=853) CO2 (BEAKER) (test 21 meq/L 22-29 yufo=175) BLOOD UREA NITROGEN 9 mg/dL 7-21 (BEAKER) (test wsxa=547) CREATININE (BEAKER) (test 1.15 mg/dL 0.57-1.25 qoaw=719) GLUCOSE RANDOM (BEAKER) 171 mg/dL 70-105 (test cvbw=163) CALCIUM (BEAKER) (test 7.1 mg/dL 8.4-10.2 rqby=979) AST (SGOT) (BEAKER) (test 15 U/L 5-34 nmwv=743) ALT (SGPT) (BEAKER) (test 13 U/L 6-55 idlx=302) EGFR (BEAKER) (test 47 mL/min/1.73 sq m ESTIMATED GFR IS NOT diyk=6821) ACCURATE CREATININE CLEARANCE IN PREDICTING GLOMERULAR FILTRATION RATE. ESTIMATED GFR IS NOT APPLICABLE FOR DIALYSIS PATIENTS. [id number] 01:37:00 Test Item Value Reference Range Comments MAGNESIUM (BEAKER) (test tnoj=379) 1.7 mg/dL 1.6-2.6 HEMOGLOBIN AND [id number] 01:16:00 Test Item Value Reference Range Comments HEMOGLOBIN (BEAKER) (test bpej=005) 8.3 GM/DL 11.2-15.7 HEMATOCRIT (BEAKER) (test mrao=318) 24.2 % 34.1-44.9 CBC W/PLT COUNT & AUTO [id number] 01:16:00 Test Item Value Reference Range Comments WHITE BLOOD CELL COUNT (BEAKER) (test lsqm=637) 11.1 K/ L 3.5-10.5 RED BLOOD CELL COUNT (BEAKER) (test jicf=848) 2.70 M/ L 3.93-5.22 HEMOGLOBIN (BEAKER) (test cfev=517) 8.3 GM/DL 11.2-15.7 HEMATOCRIT (BEAKER) (test hmrf=468) 24.2 % 34.1-44.9 MEAN CORPUSCULAR VOLUME (BEAKER) (test zjmo=484) 89.6 fL 79.4-94.8 MEAN CORPUSCULAR HEMOGLOBIN (BEAKER) (test 30.7 pg 25.6-32.2 ptcc=912) MEAN CORPUSCULAR HEMOGLOBIN CONC (BEAKER) (test 34.3 GM/DL 32.2-35.5 zznm=266) RED CELL DISTRIBUTION WIDTH (BEAKER) (test 17.5 % 11.7-14.4 lmzd=714) PLATELET COUNT (BEAKER) (test pdaz=368) 159 K/CU MM 150-450 MEAN PLATELET VOLUME (BEAKER) (test mpis=335) 9.7 fL 9.4-12.3 NUCLEATED RED BLOOD CELLS (BEAKER) (test 0 /100 WBC 0-0 bson=767) NEUTROPHILS RELATIVE PERCENT (BEAKER) (test 65 % zqlx=635) LYMPHOCYTES RELATIVE PERCENT (BEAKER) (test 16 % rfhy=070) MONOCYTES RELATIVE PERCENT (BEAKER) (test 11 % ridp=760) EOSINOPHILS RELATIVE PERCENT (BEAKER) (test 4 % qdtu=900) BASOPHILS RELATIVE PERCENT (BEAKER) (test 1 % hvzi=336) NEUTROPHILS ABSOLUTE COUNT (BEAKER) (test 7.20 K/ L 1.56-6.13 pogw=120) LYMPHOCYTES ABSOLUTE COUNT (BEAKER) (test 1.77 K/ L 1.18-3.74 tyvf=512) MONOCYTES ABSOLUTE COUNT (BEAKER) (test 1.16 K/ L 0.24-0.36 yztu=028) EOSINOPHILS ABSOLUTE COUNT (BEAKER) (test 0.43 K/ L 0.04-0.36 yzzl=799) BASOPHILS ABSOLUTE COUNT (BEAKER) (test 0.06 K/ L 0.01-0.08 sljr=681) IMMATURE GRANULOCYTES-RELATIVE PERCENT (BEAKER) 4 % 0-1 (test tgtg=2989) CALCIUM, [id number] 01:16:00 Test Item Value Reference Range Comments CALCIUM IONIZED (BEAKER) (test xouw=743) 1.13 mmol/L 1.12-1.27 PH, BLOOD (BEAKER) (test mcki=9097) 7.52 POCT-GLUCOSE [id number] 23:51:00 Test Item Value Reference Range Comments POC-GLUCOSE METER (BEAKER) 161 mg/dL 70-[address] [facility] [address] [facility] (test nkug=1530) [facility] [address] HEMOGLOBIN AND [id number] 19:44:00 Test Item Value Reference Range Comments HEMOGLOBIN (BEAKER) (test lqkp=568) 8.6 GM/DL 11.2-15.7 HEMATOCRIT (BEAKER) (test qwfb=328) 25.0 % 34.1-44.9 POCT-GLUCOSE [id number] 17:54:00 Test Item Value Reference Range Comments POC-GLUCOSE METER (BEAKER) 195 mg/dL 70-[address] [facility] [address] [place] [address] (test edgs=5647) [place] [id number] HEPATITIS B SURFACE [id number] 13:45:00 Test Item Value Reference Range Comments HEPATITIS B SURFACE ANTIGEN (2) (BEAKER) (test Nonreactive Nonreactive ovzo=2705) For chronic HD patients, draw HBsAg with each admission then every 30 days.POCT- GLUCOSE [id number] 12:09:00 Test Item Value Reference Range Comments POC-GLUCOSE METER (BEAKER) 194 mg/dL 70-[address] [facility] [address] [place] [address] (test mvas=7491) [place] [id number] CBC W/PLT COUNT & AUTO [id number] 09:36:00 Test Item Value Reference Range Comments WHITE BLOOD CELL COUNT (BEAKER) (test qamj=125) 13.6 K/ L 3.5-10.5 RED BLOOD CELL COUNT (BEAKER) (test uzys=597) 2.74 M/ L 3.93-5.22 HEMOGLOBIN (BEAKER) (test tjlp=986) 8.3 GM/DL 11.2-15.7 HEMATOCRIT (BEAKER) (test ukvd=308) 25.1 % 34.1-44.9 MEAN CORPUSCULAR VOLUME (BEAKER) (test rvph=980) 91.6 fL 79.4-94.8 MEAN CORPUSCULAR HEMOGLOBIN (BEAKER) (test 30.3 pg 25.6-32.2 gybh=339) MEAN CORPUSCULAR HEMOGLOBIN CONC (BEAKER) (test 33.1 GM/DL 32.2-35.5 kosv=921) RED CELL DISTRIBUTION WIDTH (BEAKER) (test 17.3 % 11.7-14.4 vths=893) PLATELET COUNT (BEAKER) (test qrtc=883) 171 K/CU MM 150-450 MEAN PLATELET VOLUME (BEAKER) (test npst=600) 10.2 fL 9.4-12.3 NUCLEATED RED BLOOD CELLS (BEAKER) (test 0 /100 WBC 0-0 fusg=562) NEUTROPHILS RELATIVE PERCENT (BEAKER) (test 66 % jgvb=852) LYMPHOCYTES RELATIVE PERCENT (BEAKER) (test 17 % jmzj=251) MONOCYTES RELATIVE PERCENT (BEAKER) (test 9 % dicr=085) EOSINOPHILS RELATIVE PERCENT (BEAKER) (test 3 % yfxg=106) BASOPHILS RELATIVE PERCENT (BEAKER) (test 1 % lawj=453) NEUTROPHILS ABSOLUTE COUNT (BEAKER) (test 8.91 K/ L 1.56-6.13 ecvq=372) LYMPHOCYTES ABSOLUTE COUNT (BEAKER) (test 2.24 K/ L 1.18-3.74 ycxn=043) MONOCYTES ABSOLUTE COUNT (BEAKER) (test 1.26 K/ L 0.24-0.36 zosp=745) EOSINOPHILS ABSOLUTE COUNT (BEAKER) (test 0.41 K/ L 0.04-0.36 xfvc=713) BASOPHILS ABSOLUTE COUNT (BEAKER) (test 0.08 K/ L 0.01-0.08 ddol=390) IMMATURE GRANULOCYTES-RELATIVE PERCENT (BEAKER) 5 % 0-1 (test vksg=3670) HEMOGLOBIN AND [id number] 09:32:00 Test Item Value Reference Range Comments HEMOGLOBIN (BEAKER) (test kpip=026) 8.3 GM/DL 11.2-15.7 HEMATOCRIT (BEAKER) (test puwc=260) 25.1 % 34.1-44.9 [id number] 05:52:00 Test Item Value Reference Range Comments PROTIME (BEAKER) (test vzze=675) 15.1 seconds 11.9-14.2 INR (BEAKER) (test mnxa=565) 1.2 <=5.9 PARTIAL THROMBOPLASTIN TIME (BEAKER) (test 40.0 seconds 22.5-36.0 reqw=982) Effective 09/26/2018: PT Reference Range ChangeNew: 11.9-14.2 Previous: 11.7- 14.7RECOMMENDED COUMADIN/WARFARIN INR THERAPY RANGESSTANDARD DOSE: 2.0-3.0 Includes: PROPHYLAXIS for venous thrombosis, systemic embolization; TREATMENT for venous thrombosis and/or pulmonary embolus.HIGH RISK: Target INR is2.5-3.5 for patients wiht mechanical heart valves.POCT-GLUCOSE [id number] 05:40:00 Test Item Value Reference Range Comments POC-GLUCOSE METER (BEAKER) 143 mg/dL 70-[address] [facility] [address] [facility] (test ftdx=0311) [facility] [address] COMPREHENSIVE METABOLIC [id number] 05:29:00 Test Item Value Reference Range Comments TOTAL PROTEIN (BEAKER) 5.1 gm/dL 6.0-8.3 (test pgmx=757) ALBUMIN (BEAKER) (test 2.5 g/dL 3.5-5.0 pqov=4946) ALKALINE PHOSPHATASE 87 U/L 40-150 (BEAKER) (test cccy=451) BILIRUBIN TOTAL (BEAKER) 0.6 mg/dL 0.2-1.2 (test ixqm=928) SODIUM (BEAKER) (test 140 meq/L 136-145 fwru=940) POTASSIUM (BEAKER) (test 3.9 meq/L 3.5-5.1 rlfs=823) CHLORIDE (BEAKER) (test 108 meq/L 98-107 nark=718) CO2 (BEAKER) (test 17 meq/L 22-29 nmzr=579) BLOOD UREA NITROGEN 28 mg/dL 7-21 (BEAKER) (test ewqp=950) CREATININE (BEAKER) (test 2.18 mg/dL 0.57-1.25 qaji=815) GLUCOSE RANDOM (BEAKER) 129 mg/dL 70-105 (test lmqq=963) CALCIUM (BEAKER) (test 8.4 mg/dL 8.4-10.2 mqoq=937) AST (SGOT) (BEAKER) (test 15 U/L 5-34 bzzn=805) ALT (SGPT) (BEAKER) (test 16 U/L 6-55 krnb=870) EGFR (BEAKER) (test 23 mL/min/1.73 sq m ESTIMATED GFR IS NOT aioi=8071) ACCURATE CREATININE CLEARANCE IN PREDICTING GLOMERULAR FILTRATION RATE. ESTIMATED GFR IS NOT APPLICABLE FOR DIALYSIS PATIENTS. [id number] 05:23:00 Test Item Value Reference Range Comments PHOSPHORUS (BEAKER) (test gjtp=100) 3.3 mg/dL 2.3-4.7 [id number] 05:23:00 Test Item Value Reference Range Comments MAGNESIUM (BEAKER) (test vdpz=587) 2.2 mg/dL 1.6-2.6 BLOOD GAS, [id number] 05:21:00 Test Item Value Reference Range Comments PH ARTERIAL (BEAKER) (test gdto=374) 7.44 7.35-7.45 PCO2 ARTERIAL (BEAKER) (test wcmn=444) 26 mmHg 35-45 PO2 ARTERIAL (BEAKER) (test qcio=949) 142 mmHg 80-90 O2 SATURATION ARTERIAL (BEAKER) (test esie=642) 98.9 % 96.0-97.0 HCO3 ARTERIAL (BEAKER) (test fyfc=459) 17 mmol/L 21-29 BASE EXCESS ARTERIAL (BEAKER) (test uqln=483) -6.0 mmol/L -2.0-3.0 PATIENT TEMPERATURE (BEAKER) (test etlu=5728) 37.0 C FIO2 (BEAKER) (test dlfe=9163) 21.0 % CALCIUM, [id number] 05:19:00 Test Item Value Reference Range Comments CALCIUM IONIZED (BEAKER) (test nupc=946) 1.20 mmol/L 1.12-1.27 PH, BLOOD (BEAKER) (test wntz=6050) 7.44 HEMOGLOBIN AND [id number] 00:44:00 Test Item Value Reference Range Comments HEMOGLOBIN (BEAKER) (test jppq=255) 6.2 GM/DL 11.2-15.7 HEMATOCRIT (BEAKER) (test esjo=084) 18.7 % 34.1-44.9 POCT-GLUCOSE [id number] 00:02:00 Test Item Value Reference Range Comments POC-GLUCOSE METER (BEAKER) 152 mg/dL 70-110 TESTED AT [address] (test ijxn=9351) [place] [id number] POCT-GLUCOSE [id number] 18:12:00 Test Item Value Reference Range Comments POC-GLUCOSE METER (BEAKER) 142 mg/dL 70-110 TESTED AT [address] (test gfmp=1513) [place] [id number] BASIC METABOLIC [id number] 15:17:00 Test Item Value Reference Range Comments SODIUM (BEAKER) (test 138 meq/L 136-145 dgxv=494) POTASSIUM (BEAKER) (test 4.3 meq/L 3.5-5.1 kmtv=120) CHLORIDE (BEAKER) (test 105 meq/L 98-107 wmlb=147) CO2 (BEAKER) (test 17 meq/L 22-29 orww=552) BLOOD UREA NITROGEN 22 mg/dL 7-21 (BEAKER) (test tsrx=558) CREATININE (BEAKER) (test 1.39 mg/dL 0.57-1.25 itwc=816) GLUCOSE RANDOM (BEAKER) 155 mg/dL 70-105 (test yeop=103) CALCIUM (BEAKER) (test 8.3 mg/dL 8.4-10.2 xxic=503) EGFR (BEAKER) (test 38 mL/min/1.73 sq m ESTIMATED GFR IS NOT frgf=5300) ACCURATE CREATININE CLEARANCE IN PREDICTING GLOMERULAR FILTRATION RATE. ESTIMATED GFR IS NOT APPLICABLE FOR DIALYSIS PATIENTS. HEMOGLOBIN AND [id number] 14:59:00 Test Item Value Reference Range Comments HEMOGLOBIN (BEAKER) (test bbeo=516) 7.1 GM/DL 11.2-15.7 HEMATOCRIT (BEAKER) (test qnvf=598) 21.4 % 34.1-44.9 CALCIUM, [id number] 14:38:00 Test Item Value Reference Range Comments CALCIUM IONIZED (BEAKER) (test eyta=372) 1.19 mmol/L 1.12-1.27 PH, BLOOD (BEAKER) (test qnhm=1656) 7.46 POCT-GLUCOSE [id number] 12:08:00 Test Item Value Reference Range Comments POC-GLUCOSE METER (BEAKER) 193 mg/dL 70-[address] [facility] [address] [place] [address] (test iiwu=6284) [facility] [address] BLOOD GAS, [id number] 11:26:00 Test Item Value Reference Range Comments PH ARTERIAL (BEAKER) (test tkgt=798) 7.45 7.35-7.45 PCO2 ARTERIAL (BEAKER) (test eoqz=510) 27 mmHg 35-45 PO2 ARTERIAL (BEAKER) (test hvwe=390) 235 mmHg 80-90 O2 SATURATION ARTERIAL (BEAKER) (test jqcd=696) 99.6 % 96.0-97.0 HCO3 ARTERIAL (BEAKER) (test amdw=788) 18 mmol/L 21-29 BASE EXCESS ARTERIAL (BEAKER) (test iudf=828) -5.0 mmol/L -2.0-3.0 PATIENT TEMPERATURE (BEAKER) (test olrz=7622) 36.5 C FIO2 (BEAKER) (test ovaf=3610) 40.0 % HEMOGLOBIN AND [id number] 11:01:00 Test Item Value Reference Range Comments HEMOGLOBIN (BEAKER) (test ftma=007) 7.3 GM/DL 11.2-15.7 HEMATOCRIT (BEAKER) (test rjkn=014) 21.5 % 34.1-44.9 CBC W/PLT COUNT & AUTO [id number] 10:15:00 Test Item Value Reference Range Comments WHITE BLOOD CELL COUNT (BEAKER) (test aujw=126) 13.9 K/ L 3.5-10.5 RED BLOOD CELL COUNT (BEAKER) (test dgoc=078) 2.44 M/ L 3.93-5.22 HEMOGLOBIN (BEAKER) (test btka=663) 7.6 GM/DL 11.2-15.7 HEMATOCRIT (BEAKER) (test wfts=704) 22.2 % 34.1-44.9 MEAN CORPUSCULAR VOLUME (BEAKER) (test yuzw=510) 91.0 fL 79.4-94.8 MEAN CORPUSCULAR HEMOGLOBIN (BEAKER) (test 31.1 pg 25.6-32.2 gilc=830) MEAN CORPUSCULAR HEMOGLOBIN CONC (BEAKER) (test 34.2 GM/DL 32.2-35.5 zccr=804) RED CELL DISTRIBUTION WIDTH (BEAKER) (test 16.8 % 11.7-14.4 ctox=161) PLATELET COUNT (BEAKER) (test ootg=750) 185 K/CU MM 150-450 MEAN PLATELET VOLUME (BEAKER) (test xjlg=372) 10.5 fL 9.4-12.3 NUCLEATED RED BLOOD CELLS (BEAKER) (test 0 /100 WBC 0-0 vtwk=981) (CELLAVISION MANUAL DIFF)2018-11-09 10:15:00 Test Item Value Reference Range Comments NEUTROPHILS - REL (CELLAVISION)(BEAKER) (test 77 % npjp=7446) LYMPHOCYTES - REL (CELLAVISION)(BEAKER) (test 13 % tkvx=3508) MONOCYTES - REL (CELLAVISION)(BEAKER) (test 7 % dmsb=4022) EOSINOPHILS - REL (CELLAVISION)(BEAKER) (test 2 % qgoh=6456) BANDS - REL (CELLAVISION)(BEAKER) (test 1 % 0-10 rxbs=8627) NEUTROPHILS - ABS (CELLAVISION)(BEAKER) (test 10.70 K/ul 1.56-6.13 pomo=2593) LYMPHOCYTES - ABS (CELLAVISION)(BEAKER) (test 1.81 K/ul 1.18-3.74 otta=4385) MONOCYTES - ABS (CELLAVISION)(BEAKER) (test 0.97 K/uL 0.24-0.36 iaca=4400) EOSINOPHILS - ABS (CELLAVISION)(BEAKER) (test 0.28 K/uL 0.04-0.36 sjur=8382) BANDS - ABS (CELLAVISION)(BEAKER) (test 0.14 K/uL 0.00-0.80 kczi=4001) TOTAL COUNTED (BEAKER) (test wwbn=0482) 100 WBC MORPHOLOGY (BEAKER) (test drqb=463) Normal PLT MORPHOLOGY (BEAKER) (test pibc=172) Normal ANISOCYTOSIS (BEAKER) (test nyyc=984) 1+ few POIKILOCYTES (BEAKER) (test asqy=970) 1+ few MARIELLA CELLS (BEAKER) (test cxxk=086) 1+ few ARTIFACT (CELLAVISION)(BEAKER) (test stou=0165) Present PLATELET CONCENTRATION (CELLAVISION)(BEAKER) Adequate (test inkq=8435) Received comment: User comments: Slide comments:POCT-GLUCOSE [id number] 09: 43:00 Test Item Value Reference Range Comments POC-GLUCOSE METER (BEAKER) 179 mg/dL 70-[address] [facility] [address] [facility] (test ebns=1195) [facility] [address] [id number] 09:41:00 Test Item Value Reference Range Comments PHOSPHORUS (BEAKER) (test agvv=010) 2.6 mg/dL 2.3-4.7 [id number] 09:41:00 Test Item Value Reference Range Comments MAGNESIUM (BEAKER) (test bdoe=342) 1.9 mg/dL 1.6-2.6 BASIC METABOLIC [id number] 09:41:00 Test Item Value Reference Range Comments SODIUM (BEAKER) (test 139 meq/L 136-145 xqbq=816) POTASSIUM (BEAKER) (test 4.0 meq/L 3.5-5.1 tmkb=529) CHLORIDE (BEAKER) (test 105 meq/L 98-107 eedl=811) CO2 (BEAKER) (test 17 meq/L 22-29 ebut=126) BLOOD UREA NITROGEN 27 mg/dL 7-21 (BEAKER) (test lrsl=176) CREATININE (BEAKER) (test 1.51 mg/dL 0.57-1.25 aeir=790) GLUCOSE RANDOM (BEAKER) 165 mg/dL 70-105 (test zfpd=085) CALCIUM (BEAKER) (test 8.4 mg/dL 8.4-10.2 nvru=575) EGFR (BEAKER) (test 34 mL/min/1.73 sq m ESTIMATED GFR IS NOT dbkf=9992) ACCURATE CREATININE CLEARANCE IN PREDICTING GLOMERULAR FILTRATION RATE. ESTIMATED GFR IS NOT APPLICABLE FOR DIALYSIS PATIENTS. POCT-GLUCOSE [id number] 09:38:00 Test Item Value Reference Range Comments POC-GLUCOSE METER (BEAKER) 268 mg/dL 70-110 TESTED AT [address] (test bcrr=7109) [facility] [address] POCT-GLUCOSE [id number] 09:35:00 Test Item Value Reference Range Comments POC-GLUCOSE METER (BEAKER) 200 mg/dL 70-110 TESTED AT [address] (test mxvx=7786) [facility] [address] POCT-GLUCOSE [id number] 09:35:00 Test Item Value Reference Range Comments POC-GLUCOSE METER (BEAKER) 214 mg/dL 70-110 TESTED AT [address] (test zuqe=0678) [facility] [address] PH, [id number] 09:20:00 Test Item Value Reference Range Comments PH ARTERIAL (BEAKER) (test bcgu=483) 7.47 7.35-7.45 CALCIUM, [id number] 09:19:00 Test Item Value Reference Range Comments CALCIUM IONIZED (BEAKER) (test whzm=753) 1.18 mmol/L 1.12-1.27 PH, BLOOD (BEAKER) (test rxjf=1371) 7.47 RAD, CHEST, 1 VIEW, NON [id number] 08:07:00Reason for exam:-> intubatedShould this be performed at the bedside?->YesFINAL REPORT Exam: RAD, CHEST, 1 VIEW, NON DEPTDate: 11/09/2018 8:06 AM Indication: Endotracheal tube positioning Comparison: Chest radiograph of 2018 FINDINGS: Lines/Tubes: Endotracheal tube terminates approximately 4.8 cm above the level of the gorge. Tunneled right IJ hemodialysis catheter terminates in the SVC. Lungs: The lungs are well-inflated. No focal consolidationor pulmonary edema. Pleura:No pleural effusion. No pneumothorax. Heart/Mediastinum:The cardiomediastinal silhouette is normal in size and contour. Bones/Soft Tissues:No acute fracture or dislocation. Abdomen:No free air under the diaphragm. IMPRESSION:No focal pneumonia or pulmonary edema. Lines and tubes as above. Signed: Dilan Kowalski MDReport Verified Date/Time: 03/2019 08:07:48 Reading Location: [facility] Radiology Reading Room 08:07 AMBASIC METABOLIC [id number] 05:21:00 Test Item Value Reference Range Comments SODIUM (BEAKER) (test 140 meq/L 136-145 bmhs=939) POTASSIUM (BEAKER) (test 4.2 meq/L 3.5-5.1 qmdq=148) CHLORIDE (BEAKER) (test 105 meq/L 98-107 tbpi=545) CO2 (BEAKER) (test 14 meq/L 22-29 xjzr=952) BLOOD UREA NITROGEN 34 mg/dL 7-21 (BEAKER) (test asuu=853) CREATININE (BEAKER) (test 1.83 mg/dL 0.57-1.25 jcdy=018) GLUCOSE RANDOM (BEAKER) 189 mg/dL 70-105 (test vaxh=265) CALCIUM (BEAKER) (test 8.7 mg/dL 8.4-10.2 emam=717) EGFR (BEAKER) (test 28 mL/min/1.73 sq m ESTIMATED GFR IS NOT mjun=9310) ACCURATE CREATININE CLEARANCE IN PREDICTING GLOMERULAR FILTRATION RATE. ESTIMATED GFR IS NOT APPLICABLE FOR DIALYSIS PATIENTS. [id number] 04:32:00 Test Item Value Reference Range Comments FIBRINOGEN LEVEL (BEAKER) (test rgfm=337) 359 mg/dl 225-434 [id number] 04:32:00 Test Item Value Reference Range Comments PROTIME (BEAKER) (test smrh=555) 15.9 seconds 11.9-14.2 INR (BEAKER) (test nfpd=665) 1.3 <=5.9 PARTIAL THROMBOPLASTIN TIME (BEAKER) (test 40.2 seconds 22.5-36.0 rkkx=686) Effective 09/26/2018: PT Reference Range ChangeNew: 11.9-14.2 Previous: 11.7- 14.7RECOMMENDED COUMADIN/WARFARIN INR THERAPY RANGESSTANDARD DOSE: 2.0-3.0 Includes: PROPHYLAXIS for venous thrombosis, systemic embolization; TREATMENT for venous thrombosis and/or pulmonary embolus.HIGH RISK: Target INR is2.5-3.5 for patients wiht mechanical heart valves.BLOOD GAS, [id number] 04:22:00 Test Item Value Reference Range Comments PH ARTERIAL (BEAKER) (test ghsd=638) 7.50 7.35-7.45 PCO2 ARTERIAL (BEAKER) (test resk=467) 21 mmHg 35-45 PO2 ARTERIAL (BEAKER) (test wnnx=796) 242 mmHg 80-90 O2 SATURATION ARTERIAL (BEAKER) (test cpnf=440) 99.6 % 96.0-97.0 HCO3 ARTERIAL (BEAKER) (test hasu=853) 16 mmol/L 21-29 BASE EXCESS ARTERIAL (BEAKER) (test ubpg=412) -6.3 mmol/L -2.0-3.0 PATIENT TEMPERATURE (BEAKER) (test fjlb=1453) 37.0 C FIO2 (BEAKER) (test eqhq=4979) 40.0 % HEMOGLOBIN AND [id number] 04:17:00 Test Item Value Reference Range Comments HEMOGLOBIN (BEAKER) (test hyqn=790) 7.6 GM/DL 11.2-15.7 HEMATOCRIT (BEAKER) (test fhys=805) 22.2 % 34.1-44.9 CALCIUM, [id number] 00:34:00 Test Item Value Reference Range Comments CALCIUM IONIZED (BEAKER) (test wirz=096) 1.15 mmol/L 1.12-1.27 PH, BLOOD (BEAKER) (test auqf=5785) 7.51 HEMOGLOBIN AND [id number] 22:53:00 Test Item Value Reference Range Comments HEMOGLOBIN (BEAKER) (test vsdp=202) 6.8 GM/DL 11.2-15.7 HEMATOCRIT (BEAKER) (test gluw=647) 19.4 % 34.1-44.9 PLATELET [id number] 22:47:00 Test Item Value Reference Range Comments PLATELET COUNT (BEAKER) (test kuht=201) 200 K/CU MM 150-450 BASIC METABOLIC [id number] 21:47:00 Test Item Value Reference Range Comments SODIUM (BEAKER) (test 139 meq/L 136-145 eamb=390) POTASSIUM (BEAKER) (test 4.0 meq/L 3.5-5.1 msri=371) CHLORIDE (BEAKER) (test 104 meq/L 98-107 cdvq=871) CO2 (BEAKER) (test 16 meq/L 22-29 bstg=654) BLOOD UREA NITROGEN 45 mg/dL 7-21 (BEAKER) (test wjhw=939) CREATININE (BEAKER) (test 2.29 mg/dL 0.57-1.25 jdco=771) GLUCOSE RANDOM (BEAKER) 217 mg/dL 70-105 (test keux=302) CALCIUM (BEAKER) (test 8.3 mg/dL 8.4-10.2 heir=823) EGFR (BEAKER) (test 21 mL/min/1.73 sq m ESTIMATED GFR IS NOT rjgg=0273) ACCURATE CREATININE CLEARANCE IN PREDICTING GLOMERULAR FILTRATION RATE. ESTIMATED GFR IS NOT APPLICABLE FOR DIALYSIS PATIENTS. [id number] 21:45:00 Test Item Value Reference Range Comments POTASSIUM (BEAKER) (test fqpd=482) 4.0 meq/L 3.5-5.1 [id number] 21:45:00 Test Item Value Reference Range Comments MAGNESIUM (BEAKER) (test vhqx=812) 2.0 mg/dL 1.6-2.6 [id number] 21:45:00 Test Item Value Reference Range Comments PHOSPHORUS (BEAKER) (test rhmk=583) 3.2 mg/dL 2.3-4.7 [id number] 21:45:00 Test Item Value Reference Range Comments SODIUM (BEAKER) (test cncz=150) 139 meq/L 136-145 [id number] 21:45:00 Test Item Value Reference Range Comments GLUCOSE RANDOM (BEAKER) (test tebb=797) 217 mg/dL 70-105 PH, [id number] 21:25:00 Test Item Value Reference Range Comments PH ARTERIAL (BEAKER) (test qymc=924) 7.51 7.35-7.45 BASIC METABOLIC [id number] 16:15:00 Test Item Value Reference Range Comments SODIUM (BEAKER) (test 140 meq/L 136-145 fpen=756) POTASSIUM (BEAKER) (test 3.9 meq/L 3.5-5.1 qcpj=141) CHLORIDE (BEAKER) (test 105 meq/L 98-107 xfrk=150) CO2 (BEAKER) (test 18 meq/L 22-29 eeaa=293) BLOOD UREA NITROGEN 60 mg/dL 7-21 (BEAKER) (test carz=733) CREATININE (BEAKER) (test 2.95 mg/dL 0.57-1.25 kqaq=040) GLUCOSE RANDOM (BEAKER) 207 mg/dL 70-105 (test lica=521) CALCIUM (BEAKER) (test 8.1 mg/dL 8.4-10.2 klvu=207) EGFR (BEAKER) (test 16 mL/min/1.73 sq m ESTIMATED GFR IS NOT metl=5099) ACCURATE CREATININE CLEARANCE IN PREDICTING GLOMERULAR FILTRATION RATE. ESTIMATED GFR IS NOT APPLICABLE FOR DIALYSIS PATIENTS. HEMOGLOBIN AND [id number] 15:55:00 Test Item Value Reference Range Comments HEMOGLOBIN (BEAKER) (test iyks=469) 7.4 GM/DL 11.2-15.7 HEMATOCRIT (BEAKER) (test uwym=452) 20.8 % 34.1-44.9 CALCIUM, [id number] 15:51:00 Test Item Value Reference Range Comments CALCIUM IONIZED (BEAKER) (test gskj=770) 1.09 mmol/L 1.12-1.27 PH, BLOOD (BEAKER) (test jffw=1456) 7.47 PLATELET AGGREGATION: FUNCTION [id number] 15:31:00 Test Item Value Reference Range Comments WEAK ADP RESULT(BEAKER) (test 19 % 60-91 vhil=9184) PLATELET FUNCTION SCREEN 0-39% indicates marked platelet INTERP (BEAKER) (test dysfunction ifox=9145) [id number] Gina Meredith MD (BEAKER) (test oqft=5734) (electronic signature) PLATELET COUNT AGG (BEAKER) 259 K/CU MM 150-450 (test thrr=5120) Platelet Function Screen results may be falsely low with platelet counts<100, 000/cu mm.PLATELET AGGREGATION: FUNCTION [id number] 15:30:00 Test Item Value Reference Range Comments WEAK ADP RESULT(BEAKER) (test 75 % 60-91 ezas=5327) PLATELET FUNCTION SCREEN 60-100% indicates normal INTERP (BEAKER) (test platelet function vvbh=6383) DLVT-MFKQRZCRAME-6228 (BEAKER) Gina Meredith MD (test cjww=7351) (electronic signature) PLATELET COUNT AGG (BEAKER) 243 K/CU MM 150-450 (test amwp=1005) Platelet Function Screen results may be falsely low with platelet counts<100, 000/cu mm.[id number] 10:17:00 Test Item Value Reference Range Comments CORTISOL, TOTAL (BEAKER) (test eyam=8939) 22.5 ug/dL 3.7-19.4 [id number] 09:52:00 Test Item Value Reference Range Comments FIBRINOGEN LEVEL (BEAKER) (test ovjy=031) 357 mg/dl 225-434 PT/[id number] 09:52:00 Test Item Value Reference Range Comments PROTIME (BEAKER) (test ampt=269) 16.9 seconds 11.9-14.2 INR (BEAKER) (test unhg=407) 1.5 <=5.9 PARTIAL THROMBOPLASTIN TIME (BEAKER) (test 38.9 seconds 22.5-36.0 sgap=317) Effective 09/26/2018: PT Reference Range ChangeNew: 11.9-14.2 Previous: 11.7- 14.7RECOMMENDED COUMADIN/WARFARIN INR THERAPY RANGESSTANDARD DOSE: 2.0-3.0 Includes: PROPHYLAXIS for venous thrombosis, systemic embolization; TREATMENT for venous thrombosis and/or pulmonary embolus.HIGH RISK: Target INR is2.5-3.5 for patients wiht mechanical heart valves.RAD, CHEST, 1 VIEW, NON [id number] 09:04:00Reason for exam:->intubatedShould this be performed at the bedside ?->YesFINAL REPORT TECHNIQUE: Frontal chest radiograph dated 11/08/2018. CLINICAL HISTORY: Intubated COMPARISON STUDY: Chest radiograph dated 11/07/2018 IMPRESSION: Left support tubes and lines are unchanged in position. There is atelectasis in the left lung base. No pleural effusion or pneumothorax. Cardiomediastinal silhouette is normal in size. No pulmonary edema. Bones are osteopenic. Degenerative changes are seen in the spine. Signed: Macie Fraire MDReport Verified Date/Time: 11/08/2018 09: 04:33 Reading Location: [facility] Mammo Reading Room CT, CTA [id number] 09: 00:00Addendum BeginsREPORT STATUS:A Addendum: I have reviewed the nonvascular features of this examination and concur with Dr. Jacobs 's report. Signed: Carrie Quinteros MDReport VerifiedDate/Time: 11/08/2018 09:00: 35 Reading Location: [place] [address] Angio Body Reading RoomAddendum EndsFINAL REPORT CT angiography of the abdominal aorta and pelvic arteries, 07 November 2018 INDICATION: This is a 68 year old female with diagnosis of "GI bleeding r/o dissection" presents for assessment. This study is performed in an attempt to avoid an invasive procedure. TECHNIQUE: Spiral acquisition before and during intravenous contrast administration using a Siemens CT scanner. Images were obtained before and during the dynamic passage of intravenous contrast material. Multi-planar 3-D volume-rendering reconstruction was performed using an independent workstation interactively by the interpreting physician as well as the 3-D specialist for optimal visualisation of the abdominal aorta, pelvic arteries, and its proximal branches. Please refer to the contrast sheet scanned in the RIS system for the amount and route of contrast given. This exam was performed according to our departmental dose-optimisation programme, which includes automated exposure control, adjustment of themA and/or kV according to patient size and/or use of iterative reconstruction technique. Dose modulation, iterative reconstruction, and/or weight based adjustment of the mA/kV was utilized to reduce the radiation dose to as low as reasonably achievable. FINDINGS: VASCULAR: Left atrial enlargement is identified. Mitral annular calcification is seen. Coronary artery calcification is identified in the LCx and RCA territories, where visualised. The abdominal aorta is normal in course, calibre and contour. Minimal ossification identified in the abdominal aorta. No ectasia or aneurysmal dilation is seen. There is no evidence of acute aortic pathology, specifically, there is no dissection, intramural hematoma, or contained rupture. Quantitative dimensions of the abdominal aorta are as follows: 1.8 cm at the mesenteric segment; 1.8 cm at the renal segment,; and 1.6 cm at the aortic bifurcation. The common iliac, external iliac, and the common femoral arteries are seen to be patent. Scattered calcific atherosclerosis is seen with no stenosis identified. Some scattered noncalcific atherosclerosisalso noted. A central venous catheter is identified, with tip identified in the distal right common iliac vein. Severe disease is identified in the [place] left SFA proximally in fact there is likely a femoropopliteal bypass graft identified that is incompletely assessed. The right SFA is occluded, proximally, where visualised. Acuity cannot be commented upon. The IVC is unremarkable. The associated pelvic veins are unremarkable. No venous thrombus is identified. The coeliac axis is widely patent. Calcification is identified in the splenic artery. The SMA is widely patent. Minimal nonobstructive calcification is seen. Scattered calcific and noncalcific atherosclerosis identified in the [place]. Single left and right renal arteries are seen. Nonobstructive constipation is seen in the origin of the renal arteries. Single left and right renal veins are seen draining normally into the IVC. The splenic vein, the portal vein, and SMV are patent with no venous thrombus identified. NON-VASCULAR: Dependent changes are seen in the lung bases. In the abdomen, the liver and spleen appears unremarkable. The liver edge is smooth. No abnormal enhancing structures identified. Patient's arm is on his side with significant beam hardening artefact present. The adrenal glands are not enlarged. Patient is post cholecystectomy. No acute renal pathology is seen and no hydronephrosis or perirenal fluid collections identified. Tiny nonobstructive renal stones are identified in the left kidney, measures at most 1 to 2 mm in size. No free air or free fluid is identified in the abdomen and pelvis. Minimal presacral oedema is identified. No significant retroperitoneal adenopathy is identified. A Byrd catheter is present. The uterus is not well appreciated. No obvious abnormal adnexal mass is seen, and CT is not optimizing assessment of pelvic gynaecological structures. As enteric contrast is not given assessment of the bowel is limited. No obvious bowel dilation is seen. The appendix appears unremarkable. Faecal material seen throughout the colon. No obvious extravasation of contrast is identified in the bowel lumen in both arterial and delay images. Nevertheless, an addendum will be dictated thereafter. A feeding tube is identified, with tip in the mid stomach. CONCLUSIONS: 1. The abdominal aorta is normal in course, calibre and contour. Minimal atherosclerosis is seen. There is no evidence of acute aorticpathology, specifically, there is no dissection, intramural hematoma, or contained rupture. Quantitative dimension of the abdominal aorta are as noted. 2. Disease is identified in the proximal left SFA, and patient has bypass graft (likely femoral to popliteal) present at this level is incompletely assessed. The visualised proximal right SFA is not filled by contrast indicating occlusion. 3. Patent mesenteric and renal arteries with nonobstructive atherosclerosis identified. Renal veins and mesenteric veins are patent with no venous thrombus identified. 4. Other findings as described above. In the available images, no obvious extravasation of contrast is identified in the bowel lumen. 5. An addendum will be dictated regarding the non-vascular findings by the Production Superintendent Radiologist. Signed: Arvind Jacobs Verified Date/Time: 11/07/2018 17:44:36 Reading Location: [place] [address] Cardiology MRI POCT-GLUCOSE [id number] 08:59:00 Test Item Value Reference Range Comments POC-GLUCOSE METER (BEAKER) 224 mg/dL 70-[address] [facility] [address] (test bmkj=9171) [facility] [address] HEMOGLOBIN AND [id number] 06:55:00 Test Item Value Reference Range Comments HEMOGLOBIN (BEAKER) (test xaee=686) 6.6 GM/DL 11.2-15.7 HEMATOCRIT (BEAKER) (test yxlj=601) 19.6 % 34.1-44.9 POCT-GLUCOSE [id number] 06:45:00 Test Item Value Reference Range Comments POC-GLUCOSE METER (BEAKER) 216 mg/dL 70-[address] [facility] [address] (test rwvj=5227) [place] [address] THROMBOELASTOGRAPH (TEG)2018-11-08 04:46:00 Test Item Value Reference Range Comments TEG ACTIVATED CLOTTING TIME (BEAKER) (test 5.1 minutes 4.0-7.0 xjof=6511) TEG FIBRINOGEN ACTIVITY (BEAKER) (test 77.7 degrees 61.0-73.0 klom=1149) TEG PLT. AGGREGATION (BEAKER) (test bduk=7010) 73.4 MM 55.0-65.0 TEG FIBRINOLYSIS (BEAKER) (test zqvv=1704) 0.4 % 0.0-5.0 TGH ACTIVATED CLOTTING TIME (BEAKER) (test 5.3 minutes 4.0-7.0 qyzd=7461) TGH FIBRINOGEN ACTIVITY (BEAKER) (test 76.3 degrees 61.0-73.0 suhe=2825) TGH PLT. AGGREGATION (BEAKER) (test irpm=9550) 64.4 MM 55.0-65.0 TGH FIBRINOLYSIS (BEAKER) (test ykru=4396) 10.7 % 0.0-5.0 COMPREHENSIVE METABOLIC [id number] 04:00:00 Test Item Value Reference Range Comments TOTAL PROTEIN (BEAKER) 4.9 gm/dL 6.0-8.3 (test sriq=418) ALBUMIN (BEAKER) (test 2.5 g/dL 3.5-5.0 wqff=0727) ALKALINE PHOSPHATASE 78 U/L 40-150 (BEAKER) (test kffl=204) BILIRUBIN TOTAL (BEAKER) 0.9 mg/dL 0.2-1.2 (test bmxo=791) SODIUM (BEAKER) (test 137 meq/L 136-145 dlkj=088) POTASSIUM (BEAKER) (test 3.6 meq/L 3.5-5.1 lcux=585) CHLORIDE (BEAKER) (test 104 meq/L 98-107 aqrd=272) CO2 (BEAKER) (test 22 meq/L 22-29 njfl=541) BLOOD UREA NITROGEN 72 mg/dL 7-21 (BEAKER) (test wkgk=489) CREATININE (BEAKER) (test 2.99 mg/dL 0.57-1.25 ctkg=659) GLUCOSE RANDOM (BEAKER) 175 mg/dL 70-105 (test juqj=262) CALCIUM (BEAKER) (test 8.1 mg/dL 8.4-10.2 ycbc=702) AST (SGOT) (BEAKER) (test 17 U/L 5-34 wlzj=802) ALT (SGPT) (BEAKER) (test 17 U/L 6-55 smcp=981) EGFR (BEAKER) (test 16 mL/min/1.73 sq m ESTIMATED GFR IS NOT hrho=7005) ACCURATE CREATININE CLEARANCE IN PREDICTING GLOMERULAR FILTRATION RATE. ESTIMATED GFR IS NOT APPLICABLE FOR DIALYSIS PATIENTS. TROPONIN [id number] 03:58:00 Test Item Value Reference Range Comments TROPONIN I (BEAKER) (test pmoi=201) 1.09 ng/mL 0.00-0.03 Troponin I (TnI) levels must [...] failure, acidosis, acute neurological disease, and persistent tachyarrhythmia.[id number] 03:42:00 Test Item Value Reference Range Comments TRIGLYCERIDES (BEAKER) (test mzvu=218) 103 mg/dL TRIGLYCERIDE REFERENCE RANGELow Risk <150Borderline Risk 150-199High Risk 200-499Very High Risk>=[id number] 03:42:00 Test Item Value Reference Range Comments MAGNESIUM (BEAKER) (test jiaw=573) 2.2 mg/dL 1.6-2.6 [id number] 03:42:00 Test Item Value Reference Range Comments PHOSPHORUS (BEAKER) (test dvoc=794) 4.1 mg/dL 2.3-4.7 CREATINE KINASE (CK)2018-11-08 03:42:00 Test Item Value Reference Range Comments CREATINE KINASE TOTAL (BEAKER) (test iwaf=227) 85 U/L 29-200 CBC W/PLT COUNT & AUTO [id number] 03:20:00 Test Item Value Reference Range Comments WHITE BLOOD CELL COUNT (BEAKER) (test jxvi=206) 8.5 K/ L 3.5-10.5 RED BLOOD CELL COUNT (BEAKER) (test sxvh=484) 2.26 M/ L 3.93-5.22 HEMOGLOBIN (BEAKER) (test hegt=586) 7.2 GM/DL 11.2-15.7 HEMATOCRIT (BEAKER) (test ogtq=508) 21.0 % 34.1-44.9 MEAN CORPUSCULAR VOLUME (BEAKER) (test jomp=020) 92.9 fL 79.4-94.8 MEAN CORPUSCULAR HEMOGLOBIN (BEAKER) (test 31.9 pg 25.6-32.2 twmq=478) MEAN CORPUSCULAR HEMOGLOBIN CONC (BEAKER) (test 34.3 GM/DL 32.2-35.5 yicw=319) RED CELL DISTRIBUTION WIDTH (BEAKER) (test 15.9 % 11.7-14.4 ikzz=218) PLATELET COUNT (BEAKER) (test azdu=682) 187 K/CU MM 150-450 MEAN PLATELET VOLUME (BEAKER) (test ctfq=797) 10.7 fL 9.4-12.3 NUCLEATED RED BLOOD CELLS (BEAKER) (test 0 /100 WBC 0-0 aecy=185) NEUTROPHILS RELATIVE PERCENT (BEAKER) (test 70 % gdic=080) LYMPHOCYTES RELATIVE PERCENT (BEAKER) (test 14 % mtkl=178) MONOCYTES RELATIVE PERCENT (BEAKER) (test 11 % sayd=973) EOSINOPHILS RELATIVE PERCENT (BEAKER) (test 4 % ryjs=612) BASOPHILS RELATIVE PERCENT (BEAKER) (test 1 % dqtu=824) NEUTROPHILS ABSOLUTE COUNT (BEAKER) (test 5.91 K/ L 1.56-6.13 bxzr=057) LYMPHOCYTES ABSOLUTE COUNT (BEAKER) (test 1.16 K/ L 1.18-3.74 hpse=539) MONOCYTES ABSOLUTE COUNT (BEAKER) (test 0.94 K/ L 0.24-0.36 fkel=283) EOSINOPHILS ABSOLUTE COUNT (BEAKER) (test 0.32 K/ L 0.04-0.36 ieit=633) BASOPHILS ABSOLUTE COUNT (BEAKER) (test 0.04 K/ L 0.01-0.08 mukh=487) IMMATURE GRANULOCYTES-RELATIVE PERCENT (BEAKER) 1 % 0-1 (test laku=4438) BLOOD GAS, [id number] 03:14:00 Test Item Value Reference Range Comments PH ARTERIAL (BEAKER) (test pjyu=350) 7.52 7.35-7.45 PCO2 ARTERIAL (BEAKER) (test qmzv=472) 30 mmHg 35-45 PO2 ARTERIAL (BEAKER) (test eayr=035) 174 mmHg 80-90 O2 SATURATION ARTERIAL (BEAKER) (test erey=698) 99.3 % 96.0-97.0 HCO3 ARTERIAL (BEAKER) (test vhnv=224) 24 mmol/L 21-29 BASE EXCESS ARTERIAL (BEAKER) (test lkop=193) 1.0 mmol/L -2.0-3.0 PATIENT TEMPERATURE (BEAKER) (test xlck=7197) 37.5 C FIO2 (BEAKER) (test kywu=9133) 40.0 % CALCIUM, [id number] 03:14:00 Test Item Value Reference Range Comments CALCIUM IONIZED (BEAKER) (test pzxf=195) 1.10 mmol/L 1.12-1.27 PH, BLOOD (BEAKER) (test dtey=4582) 7.52 POCT-GLUCOSE [id number] 00:18:00 Test Item Value Reference Range Comments POC-GLUCOSE METER (BEAKER) 123 mg/dL 70-[address] [facility] [address] (test neja=9773) [facility] [address] HEMOGLOBIN AND [id number] 22:17:00 Test Item Value Reference Range Comments HEMOGLOBIN (BEAKER) (test bqtp=639) 6.9 GM/DL 11.2-15.7 HEMATOCRIT (BEAKER) (test fuab=947) 20.3 % 34.1-44.9 RAD, CHEST, 1 VIEW, NON [id number] 21:35:00Reason for exam:->GI bleed s/ p massive transfusion, concern for volume overloadShould this be performed at the bedside?->YesFINAL REPORT Chest, 1 view. History: GI bleed status post massive transfusion. Comparison: 11/07/2018 at 1555. Discussion: Endotracheal tube and right IJ tunneled dialysis catheter identified in stable position. Enteric tube noted coursing below the diaphragm. The trachea is midline. There are stable appearing mild left basilar opacity suggestive of atelectasis. There is no evidence for new large focal consolidation, pneumothorax, or significant pleural effusion. The cardiomediastinal silhouette is stable in appearance. No acute osseous abnormality is identified. IMPRESSION:No significant interval change from the prior examination from earlier 11/07/2018. Signed: William Heath Verified Date/Time: 11/07/2018 21:35:28 Reading Location: [address] Consult Reading Room 09 :35 PMPOCT-GLUCOSE [id number] 20:16:00 Test Item Value Reference Range Comments POC-GLUCOSE METER (BEAKER) 164 mg/dL 70-[address] [facility] [address] (test twrm=7243) [facility] [address] [id number] 20:06:00 Test Item Value Reference Range Comments PROCALCITONIN (BEAKER) (test yjoq=2316) 6.03 ng/mL <0.05 SEPSIS RISK (ng/mL)Low: 0.05-0.50Intermediate: 0.51-2.00High: & gt;=2.01TROPONIN [id number] 20:01:00 Test Item Value Reference Range Comments TROPONIN I (BEAKER) (test fkib=637) 1.00 ng/mL 0.00-0.03 Troponin I (TnI) levels must [...] failure, acidosis, acute neurological disease, and persistent tachyarrhythmia.Call [id number] with resultsB-TYPE NATRIURETIC FACTOR (BNP)2018-11-07 19:59:00 Test Item Value Reference Range Comments B-TYPE NATRIURETIC PEPTIDE (BEAKER) (test 495 pg/mL 0-100 venc=653) [id number] 19:56:00 Test Item Value Reference Range Comments D-DIMER QUANTITATIVE (BEAKER) (test btbz=002) 2.82 MG/L FEU <0.50 Intended Use: The D-Dimer Assay can be used to aid in the diagnosis of Deep Vein Thrombosis (DVT) and Pulmonary Embolism Disease (PED).In patients with low pre-test probability, various studies concerning STA Liatest D-dimer test have reported that with a cutoff value of 0.50 MG/L FEU, the Negative Predictive Value (NPV) regarding the exclusion of thrombosis is within 95-100% range.BASIC METABOLIC [id number] 19:54:00 Test Item Value Reference Range Comments SODIUM (BEAKER) (test 138 meq/L 136-145 etsv=139) POTASSIUM (BEAKER) (test 3.5 meq/L 3.5-5.1 fviv=641) CHLORIDE (BEAKER) (test 103 meq/L 98-107 lnxn=267) CO2 (BEAKER) (test 24 meq/L 22-29 jybk=137) BLOOD UREA NITROGEN 67 mg/dL 7-21 (BEAKER) (test mpae=804) CREATININE (BEAKER) (test 2.79 mg/dL 0.57-1.25 umhn=672) GLUCOSE RANDOM (BEAKER) 178 mg/dL 70-105 (test ckvw=913) CALCIUM (BEAKER) (test 8.1 mg/dL 8.4-10.2 kdbk=985) EGFR (BEAKER) (test 17 mL/min/1.73 sq m ESTIMATED GFR IS NOT tgsk=8769) ACCURATE CREATININE CLEARANCE IN PREDICTING GLOMERULAR FILTRATION RATE. ESTIMATED GFR IS NOT APPLICABLE FOR DIALYSIS PATIENTS. Call [id number] with [id number] 19:54:00 Test Item Value Reference Range Comments FIBRINOGEN LEVEL (BEAKER) (test fiol=498) 415 mg/dl 225-434 PT/[id number] 19:54:00 Test Item Value Reference Range Comments PROTIME (BEAKER) (test kmzt=560) 15.8 seconds 11.9-14.2 INR (BEAKER) (test fvbe=716) 1.3 <=5.9 PARTIAL THROMBOPLASTIN TIME (BEAKER) (test 38.7 seconds 22.5-36.0 coej=903) Effective 09/26/2018: PT Reference Range ChangeNew: 11.9-14.2 Previous: 11.7- 14.7RECOMMENDED COUMADIN/WARFARIN INR THERAPY RANGESSTANDARD DOSE: 2.0-3.0 Includes: PROPHYLAXIS for venous thrombosis, systemic embolization; TREATMENT for venous thrombosis and/or pulmonary embolus.HIGH RISK: Target INR is2.5-3.5 for patients wiht mechanical heart valves.LACTIC ACID, [id number] 19:51: 00 Test Item Value Reference Range Comments LACTATE BLOOD ARTERIAL (2) (BEAKER) (test 0.7 mmol/L 0.5-2.2 zndv=4393) [id number] 19:46:00 Test Item Value Reference Range Comments AMMONIA (BEAKER) (test axmp=640) 44 mol/L 18-72 BLOOD GAS, [id number] 19:37:00 Test Item Value Reference Range Comments PH ARTERIAL (BEAKER) (test fykd=804) 7.44 7.35-7.45 PCO2 ARTERIAL (BEAKER) (test cfjy=492) 35 mmHg 35-45 PO2 ARTERIAL (BEAKER) (test hdzp=169) 427 mmHg 80-90 O2 SATURATION ARTERIAL (BEAKER) (test xuef=659) 99.8 % 96.0-97.0 HCO3 ARTERIAL (BEAKER) (test oxuf=502) 23 mmol/L 21-29 BASE EXCESS ARTERIAL (BEAKER) (test hlhg=765) -0.6 mmol/L -2.0-3.0 PATIENT TEMPERATURE (BEAKER) (test fkeo=5731) 36.5 C FIO2 (BEAKER) (test hfib=7485) 100.0 % CALCIUM, [id number] 19:37:00 Test Item Value Reference Range Comments CALCIUM IONIZED (BEAKER) (test fsmq=406) 1.05 mmol/L 1.12-1.27 PH, BLOOD (BEAKER) (test nhwn=9608) 7.43 CBC (HEMOGRAM ONLY)2018-11-07 19:36:00 Test Item Value Reference Range Comments WHITE BLOOD CELL COUNT (BEAKER) (test mpcl=128) 8.8 K/ L 3.5-10.5 RED BLOOD CELL COUNT (BEAKER) (test ilhl=825) 2.38 M/ L 3.93-5.22 HEMOGLOBIN (BEAKER) (test qfji=771) 7.7 GM/DL 11.2-15.7 HEMATOCRIT (BEAKER) (test gkya=962) 23.2 % 34.1-44.9 MEAN CORPUSCULAR VOLUME (BEAKER) (test bvjl=090) 97.5 fL 79.4-94.8 MEAN CORPUSCULAR HEMOGLOBIN (BEAKER) (test 32.4 pg 25.6-32.2 evbf=874) MEAN CORPUSCULAR HEMOGLOBIN CONC (BEAKER) (test 33.2 GM/DL 32.2-35.5 uyxg=039) RED CELL DISTRIBUTION WIDTH (BEAKER) (test 15.1 % 11.7-14.4 yjea=547) PLATELET COUNT (BEAKER) (test acps=093) 223 K/CU MM 150-450 MEAN PLATELET VOLUME (BEAKER) (test swyb=061) 10.0 fL 9.4-12.3 NUCLEATED RED BLOOD CELLS (BEAKER) (test 0 /100 WBC 0-0 cbxn=124) HEMOGLOBIN AND [id number] 19:34:00 Test Item Value Reference Range Comments HEMOGLOBIN (BEAKER) (test ywtf=634) 7.7 GM/DL 11.2-15.7 HEMATOCRIT (BEAKER) (test sjuy=135) 23.2 % 34.1-44.9 RAD, CHEST, 1 VIEW, NON [id number] 16:18:00Reason for exam:-> baslineShould this be performed at the bedside?->YesFINAL REPORT Portable chest 11/07/2018 COMPARISON: 05/22/2018 Since prior study, the temporary right internal jugular dialysis catheter has been replaced with a split tip tunneled catheter that terminates in the mid superior vena cava and has a large loop in its cervical portion. The hazy pulmonary opacities noted on prior examination are resolved with mild hypoventilatory changes noted in left lung base. There is no pneumothorax or significant pleural effusion. Endotracheal tube is been placed with its tip in satisfactory position, 3 cm above the gorge. NG tube terminates below the diaphragm. There are surgical clips in right upper quadrant consistent with prior cholecystectomy. No significant osseous abnormalities are identified although there is a small osteophyte along the lateral inferior margin of the right acromion. Signed: Carrie Quinteros MDRnathanielort Verified Date/Time:11/07/2018 16:18:12 Reading Location: [facility] Radiology Reading Room [facility] METABOLIC [id number] 15:44:00 Test Item Value Reference Range Comments SODIUM (BEAKER) (test 136 meq/L 136-145 uxhx=160) POTASSIUM (BEAKER) (test 4.2 meq/L 3.5-5.1 fobp=383) CHLORIDE (BEAKER) (test 103 meq/L 98-107 iram=810) CO2 (BEAKER) (test 22 meq/L 22-29 ccne=916) BLOOD UREA NITROGEN 73 mg/dL 7-21 (BEAKER) (test vbrv=286) CREATININE (BEAKER) (test 3.09 mg/dL 0.57-1.25 qqcr=884) GLUCOSE RANDOM (BEAKER) 240 mg/dL 70-105 (test bbdc=771) CALCIUM (BEAKER) (test 8.2 mg/dL 8.4-10.2 tgyq=428) EGFR (BEAKER) (test 15 mL/min/1.73 sq m ESTIMATED GFR IS NOT ijuq=3003) ACCURATE CREATININE CLEARANCE IN PREDICTING GLOMERULAR FILTRATION RATE. ESTIMATED GFR IS NOT APPLICABLE FOR DIALYSIS PATIENTS. HEPATIC FUNCTION [id number] 15:35:00 Test Item Value Reference Range Comments TOTAL PROTEIN (BEAKER) (test kcft=351) 5.7 gm/dL 6.0-8.3 ALBUMIN (BEAKER) (test plnk=2439) 2.3 g/dL 3.5-5.0 BILIRUBIN TOTAL (BEAKER) (test ohlw=339) 0.4 mg/dL 0.2-1.2 BILIRUBIN DIRECT (BEAKER) (test oixm=023) 0.3 mg/dL 0.1-0.5 ALKALINE PHOSPHATASE (BEAKER) (test wrnk=579) 124 U/L 40-150 AST (SGOT) (BEAKER) (test frxo=836) 38 U/L 5-34 ALT (SGPT) (BEAKER) (test pfxy=552) 28 U/L 6-55 TROPONIN [id number] 15:34:00 Test Item Value Reference Range Comments TROPONIN I (BEAKER) (test fmeb=906) 1.38 ng/mL 0.00-0.03 Troponin I (TnI) levels must [...] failure, acidosis, acute neurological disease, and persistent tachyarrhythmia.TROPONIN [id number] 15:03:00 Test Item Value Reference Range Comments TROPONIN I (BEAKER) (test ksub=196) 1.30 ng/mL 0.00-0.03 Troponin I (TnI) levels must [...] failure, acidosis, acute neurological disease, and persistent tachyarrhythmia.BLOOD GAS, [id number] 15:00:00 Test Item Value Reference Range Comments PH ARTERIAL (BEAKER) (test dkff=078) 7.49 7.35-7.45 PCO2 ARTERIAL (BEAKER) (test uhyq=947) 30 mmHg 35-45 PO2 ARTERIAL (BEAKER) (test xven=917) 101 mmHg 80-90 O2 SATURATION ARTERIAL (BEAKER) (test bola=933) 98.2 % 96.0-97.0 HCO3 ARTERIAL (BEAKER) (test usjt=987) 22 mmol/L 21-29 BASE EXCESS ARTERIAL (BEAKER) (test ylcb=989) -0.7 mmol/L -2.0-3.0 PATIENT TEMPERATURE (BEAKER) (test sqip=0630) 36.5 C FIO2 (BEAKER) (test xuwe=5022) 21.0 % LACTIC ACID, [id number] 14:44:00 Test Item Value Reference Range Comments LACTATE BLOOD ARTERIAL (2) (BEAKER) (test 1.0 mmol/L 0.5-2.2 egcz=0067) [id number] 14:35:00 Test Item Value Reference Range Comments PARTIAL THROMBOPLASTIN TIME (BEAKER) (test 37.9 seconds 22.5-36.0 nagy=722) PROTHROMBIN [id number] 14:34:00 Test Item Value Reference Range Comments PROTIME (BEAKER) (test hxmy=311) 15.8 seconds 11.9-14.2 INR (BEAKER) (test pkyh=615) 1.3 <=5.9 Effective 09/26/2018: PT Reference Range ChangeNew: 11.9-14.2 Previous: 11.7- 14.7RECOMMENDED COUMADIN/WARFARIN INR THERAPY RANGESSTANDARD DOSE: 2.0-3.0 Includes: PROPHYLAXIS for venous thrombosis, systemic embolization; TREATMENT for venous thrombosis and/or pulmonary embolus.HIGH RISK: Target INR is2.5-3.5 for patients wiht mechanical heart valves.[id number] 14:34:00 Test Item Value Reference Range Comments FIBRINOGEN LEVEL (BEAKER) (test dryv=911) 542 mg/dl 225-434 HEMOGLOBIN AND [id number] 14:26:00 Test Item Value Reference Range Comments HEMOGLOBIN (BEAKER) (test lbem=205) 8.0 GM/DL 11.2-15.7 HEMATOCRIT (BEAKER) (test sfry=416) 25.7 % 34.1-44.9 POCT-GLUCOSE [id number] 13:58:00 Test Item Value Reference Range Comments POC-GLUCOSE METER (BEAKER) 283 mg/dL 70-110 TESTED AT [address] (test dywd=8885) [place] [id number] POCT-GLUCOSE [id number] 16:38:00 Test Item Value Reference Range Comments POC-GLUCOSE METER (BEAKER) 229 mg/dL 70-110 TESTED AT [address] (test hiww=8500) [place] [id number] POCT-GLUCOSE [id number] 13:23:00 Test Item Value Reference Range Comments POC-GLUCOSE METER (BEAKER) 148 mg/dL 70-110 TESTED AT [address] (test xudj=5901) [place] [id number] POCT-GLUCOSE [id number] 07:33:00 Test Item Value Reference Range Comments POC-GLUCOSE METER (BEAKER) 112 mg/dL 70-110 TESTED AT [address] (test ygno=9372) [facility] [address] BASIC METABOLIC [id number] 06:07:00 Test Item Value Reference Range Comments SODIUM (BEAKER) (test 132 meq/L 136-145 dqmp=280) POTASSIUM (BEAKER) (test 4.3 meq/L 3.5-5.1 zeau=803) CHLORIDE (BEAKER) (test 97 meq/L 98-107 gvmk=029) CO2 (BEAKER) (test 23 meq/L 22-29 fywb=194) BLOOD UREA NITROGEN 45 mg/dL 7-21 (BEAKER) (test zyjn=369) CREATININE (BEAKER) (test 3.43 mg/dL 0.57-1.25 pmrp=992) GLUCOSE RANDOM (BEAKER) 98 mg/dL 70-105 (test ksga=882) CALCIUM (BEAKER) (test 9.0 mg/dL 8.4-10.2 zasr=921) EGFR (BEAKER) (test 13 mL/min/1.73 sq m ESTIMATED GFR IS NOT clbr=7210) ACCURATE CREATININE CLEARANCE IN PREDICTING GLOMERULAR FILTRATION RATE. ESTIMATED GFR IS NOT APPLICABLE FOR DIALYSIS PATIENTS. [id number] 06:03:00 Test Item Value Reference Range Comments MAGNESIUM (BEAKER) (test adev=124) 1.8 mg/dL 1.6-2.6 CBC W/PLT COUNT & AUTO [id number] 05:46:00 Test Item Value Reference Range Comments WHITE BLOOD CELL COUNT (BEAKER) (test janb=026) 9.9 K/ L 3.5-10.5 RED BLOOD CELL COUNT (BEAKER) (test jmmu=832) 3.01 M/ L 3.93-5.22 HEMOGLOBIN (BEAKER) (test zuhj=348) 8.8 GM/DL 11.2-15.7 HEMATOCRIT (BEAKER) (test ygyo=036) 28.2 % 34.1-44.9 MEAN CORPUSCULAR VOLUME (BEAKER) (test adyy=047) 93.7 fL 79.4-94.8 MEAN CORPUSCULAR HEMOGLOBIN (BEAKER) (test 29.2 pg 25.6-32.2 mjtk=970) MEAN CORPUSCULAR HEMOGLOBIN CONC (BEAKER) (test 31.2 GM/DL 32.2-35.5 chci=142) RED CELL DISTRIBUTION WIDTH (BEAKER) (test 15.8 % 11.7-14.4 hltz=071) PLATELET COUNT (BEAKER) (test sncx=983) 298 K/CU MM 150-450 MEAN PLATELET VOLUME (BEAKER) (test nauj=863) 11.1 fL 9.4-12.3 NUCLEATED RED BLOOD CELLS (BEAKER) (test 0 /100 WBC 0-0 mrlv=460) NEUTROPHILS RELATIVE PERCENT (BEAKER) (test 62 % jaie=755) LYMPHOCYTES RELATIVE PERCENT (BEAKER) (test 24 % ueqt=332) MONOCYTES RELATIVE PERCENT (BEAKER) (test 10 % qimh=760) EOSINOPHILS RELATIVE PERCENT (BEAKER) (test 3 % ptqf=143) BASOPHILS RELATIVE PERCENT (BEAKER) (test 1 % rqkk=469) NEUTROPHILS ABSOLUTE COUNT (BEAKER) (test 6.10 K/ L 1.56-6.13 xwqd=875) LYMPHOCYTES ABSOLUTE COUNT (BEAKER) (test 2.33 K/ L 1.18-3.74 zffw=039) MONOCYTES ABSOLUTE COUNT (BEAKER) (test 0.98 K/ L 0.24-0.36 nsvm=773) EOSINOPHILS ABSOLUTE COUNT (BEAKER) (test 0.33 K/ L 0.04-0.36 uhzu=989) BASOPHILS ABSOLUTE COUNT (BEAKER) (test 0.08 K/ L 0.01-0.08 wdqh=625) IMMATURE GRANULOCYTES-RELATIVE PERCENT (BEAKER) 1 % 0-1 (test zqkc=3705) POCT-GLUCOSE [id number] 21:26:00 Test Item Value Reference Range Comments POC-GLUCOSE METER (BEAKER) 117 mg/dL 70-110 TESTED AT [address] (test ezzx=2648) [place] [address] POCT-GLUCOSE [id number] 16:18:00 Test Item Value Reference Range Comments POC-GLUCOSE METER (BEAKER) 72 mg/dL 70-110 TESTED AT [address] (test gfkf=2611) [place] [address] POCT-GLUCOSE [id number] 11:37:00 Test Item Value Reference Range Comments POC-GLUCOSE METER (BEAKER) 191 mg/dL 70-110 TESTED AT [address] (test zjmx=7683) [place] [address] POCT-GLUCOSE [id number] 07:21:00 Test Item Value Reference Range Comments POC-GLUCOSE METER (BEAKER) 129 mg/dL 70-110 TESTED AT [address] (test yzpv=6456) [place] [address] BASIC METABOLIC [id number] 06:52:00 Test Item Value Reference Range Comments SODIUM (BEAKER) (test 137 meq/L 136-145 jzat=612) POTASSIUM (BEAKER) (test 4.2 meq/L 3.5-5.1 ugdf=620) CHLORIDE (BEAKER) (test 100 meq/L 98-107 nidx=987) CO2 (BEAKER) (test 29 meq/L 22-29 jdpm=210) BLOOD UREA NITROGEN 26 mg/dL 7-21 (BEAKER) (test rpgm=329) CREATININE (BEAKER) (test 2.31 mg/dL 0.57-1.25 iecz=250) GLUCOSE RANDOM (BEAKER) 100 mg/dL 70-105 (test hpmt=185) CALCIUM (BEAKER) (test 9.0 mg/dL 8.4-10.2 byil=766) EGFR (BEAKER) (test 21 mL/min/1.73 sq m ESTIMATED GFR IS NOT yphk=1672) ACCURATE CREATININE CLEARANCE IN PREDICTING GLOMERULAR FILTRATION RATE. ESTIMATED GFR IS NOT APPLICABLE FOR DIALYSIS PATIENTS. [id number] 06:47:00 Test Item Value Reference Range Comments MAGNESIUM (BEAKER) (test rzcp=326) 1.9 mg/dL 1.6-2.6 CBC W/PLT COUNT & AUTO [id number] 06:27:00 Test Item Value Reference Range Comments WHITE BLOOD CELL COUNT (BEAKER) (test ynmv=671) 8.1 K/ L 3.5-10.5 RED BLOOD CELL COUNT (BEAKER) (test fibq=394) 2.94 M/ L 3.93-5.22 HEMOGLOBIN (BEAKER) (test rddt=555) 8.7 GM/DL 11.2-15.7 HEMATOCRIT (BEAKER) (test rjpq=026) 27.5 % 34.1-44.9 MEAN CORPUSCULAR VOLUME (BEAKER) (test bbmi=994) 93.5 fL 79.4-94.8 MEAN CORPUSCULAR HEMOGLOBIN (BEAKER) (test 29.6 pg 25.6-32.2 deam=272) MEAN CORPUSCULAR HEMOGLOBIN CONC (BEAKER) (test 31.6 GM/DL 32.2-35.5 epfh=958) RED CELL DISTRIBUTION WIDTH (BEAKER) (test 15.8 % 11.7-14.4 zbls=642) PLATELET COUNT (BEAKER) (test pipv=057) 305 K/CU MM 150-450 MEAN PLATELET VOLUME (BEAKER) (test wysg=932) 11.6 fL 9.4-12.3 NUCLEATED RED BLOOD CELLS (BEAKER) (test 0 /100 WBC 0-0 noya=398) NEUTROPHILS RELATIVE PERCENT (BEAKER) (test 63 % sagn=418) LYMPHOCYTES RELATIVE PERCENT (BEAKER) (test 21 % wzrs=290) MONOCYTES RELATIVE PERCENT (BEAKER) (test 12 % eezc=772) EOSINOPHILS RELATIVE PERCENT (BEAKER) (test 2 % dmph=990) BASOPHILS RELATIVE PERCENT (BEAKER) (test 1 % gggn=587) NEUTROPHILS ABSOLUTE COUNT (BEAKER) (test 5.13 K/ L 1.56-6.13 droz=592) LYMPHOCYTES ABSOLUTE COUNT (BEAKER) (test 1.72 K/ L 1.18-3.74 wjtc=066) MONOCYTES ABSOLUTE COUNT (BEAKER) (test 0.94 K/ L 0.24-0.36 wxcf=455) EOSINOPHILS ABSOLUTE COUNT (BEAKER) (test 0.19 K/ L 0.04-0.36 jslo=605) BASOPHILS ABSOLUTE COUNT (BEAKER) (test 0.07 K/ L 0.01-0.08 sgoj=808) IMMATURE GRANULOCYTES-RELATIVE PERCENT (BEAKER) 1 % 0-1 (test iyem=0087) POCT-GLUCOSE [id number] 21:28:00 Test Item Value Reference Range Comments POC-GLUCOSE METER (BEAKER) 126 mg/dL 70-110 TESTED AT [address] (test namn=3395) [facility] [address] POCT-GLUCOSE [id number] 17:04:00 Test Item Value Reference Range Comments POC-GLUCOSE METER (BEAKER) 112 mg/dL 70-110 TESTED AT [address] (test rojy=7646) [place] [id number] POCT-GLUCOSE [id number] 12:52:00 Test Item Value Reference Range Comments POC-GLUCOSE METER (BEAKER) 186 mg/dL 70-110 TESTED AT [address] (test ndre=6949) [place] [id number] POCT-GLUCOSE [id number] 08:56:00 Test Item Value Reference Range Comments POC-GLUCOSE METER (BEAKER) 140 mg/dL 70-[address] [facility] [address] [facility] (test twdb=1487) [facility] [address] BASIC METABOLIC [id number] 07:35:00 Test Item Value Reference Range Comments SODIUM (BEAKER) (test 131 meq/L 136-145 swhq=762) POTASSIUM (BEAKER) (test 4.8 meq/L 3.5-5.1 pxiw=193) CHLORIDE (BEAKER) (test 97 meq/L 98-107 koru=532) CO2 (BEAKER) (test 24 meq/L 22-29 mwud=261) BLOOD UREA NITROGEN 56 mg/dL 7-21 (BEAKER) (test erpf=650) CREATININE (BEAKER) (test 3.78 mg/dL 0.57-1.25 gauv=943) GLUCOSE RANDOM (BEAKER) 107 mg/dL 70-105 (test cdhr=668) CALCIUM (BEAKER) (test 8.8 mg/dL 8.4-10.2 rysi=126) EGFR (BEAKER) (test 12 mL/min/1.73 sq m ESTIMATED GFR IS NOT swqq=9696) ACCURATE CREATININE CLEARANCE IN PREDICTING GLOMERULAR FILTRATION RATE. ESTIMATED GFR IS NOT APPLICABLE FOR DIALYSIS PATIENTS. [id number] 07:29:00 Test Item Value Reference Range Comments MAGNESIUM (BEAKER) (test lhlb=734) 1.8 mg/dL 1.6-2.6 CBC W/PLT COUNT & AUTO [id number] 06:52:00 Test Item Value Reference Range Comments WHITE BLOOD CELL COUNT (BEAKER) (test hzyg=374) 8.2 K/ L 3.5-10.5 RED BLOOD CELL COUNT (BEAKER) (test xkcv=455) 2.88 M/ L 3.93-5.22 HEMOGLOBIN (BEAKER) (test tvnb=100) 8.3 GM/DL 11.2-15.7 HEMATOCRIT (BEAKER) (test tfxd=961) 27.1 % 34.1-44.9 MEAN CORPUSCULAR VOLUME (BEAKER) (test ejwt=199) 94.1 fL 79.4-94.8 MEAN CORPUSCULAR HEMOGLOBIN (BEAKER) (test 28.8 pg 25.6-32.2 zkdc=031) MEAN CORPUSCULAR HEMOGLOBIN CONC (BEAKER) (test 30.6 GM/DL 32.2-35.5 yloc=896) RED CELL DISTRIBUTION WIDTH (BEAKER) (test 15.8 % 11.7-14.4 znzi=569) PLATELET COUNT (BEAKER) (test nsnt=044) 299 K/CU MM 150-450 MEAN PLATELET VOLUME (BEAKER) (test vbkw=923) 11.5 fL 9.4-12.3 NUCLEATED RED BLOOD CELLS (BEAKER) (test 0 /100 WBC 0-0 kzpm=375) NEUTROPHILS RELATIVE PERCENT (BEAKER) (test 55 % acqj=204) LYMPHOCYTES RELATIVE PERCENT (BEAKER) (test 27 % dukx=100) MONOCYTES RELATIVE PERCENT (BEAKER) (test 13 % zexl=768) EOSINOPHILS RELATIVE PERCENT (BEAKER) (test 4 % okar=598) BASOPHILS RELATIVE PERCENT (BEAKER) (test 1 % swvr=367) NEUTROPHILS ABSOLUTE COUNT (BEAKER) (test 4.50 K/ L 1.56-6.13 pgib=063) LYMPHOCYTES ABSOLUTE COUNT (BEAKER) (test 2.20 K/ L 1.18-3.74 fkog=069) MONOCYTES ABSOLUTE COUNT (BEAKER) (test 1.08 K/ L 0.24-0.36 iunn=371) EOSINOPHILS ABSOLUTE COUNT (BEAKER) (test 0.30 K/ L 0.04-0.36 mteu=310) BASOPHILS ABSOLUTE COUNT (BEAKER) (test 0.06 K/ L 0.01-0.08 lkjf=875) IMMATURE GRANULOCYTES-RELATIVE PERCENT (BEAKER) 1 % 0-1 (test mgcc=8641) POCT-GLUCOSE [id number] 20:55:00 Test Item Value Reference Range Comments POC-GLUCOSE METER (BEAKER) 125 mg/dL 70-110 TESTED AT [address] (test obym=0671) [facility] [address] POCT-GLUCOSE [id number] 17:18:00 Test Item Value Reference Range Comments POC-GLUCOSE METER (BEAKER) 121 mg/dL 70-110 TESTED AT [address] (test nhep=5916) [facility] [address] POCT-GLUCOSE [id number] 10:40:00 Test Item Value Reference Range Comments POC-GLUCOSE METER (BEAKER) 187 mg/dL 70-110 TESTED AT [address] (test okhq=4152) [facility] [address] BASIC METABOLIC [id number] 07:02:00 Test Item Value Reference Range Comments SODIUM (BEAKER) (test 133 meq/L 136-145 eiwq=065) POTASSIUM (BEAKER) (test 4.6 meq/L 3.5-5.1 luvj=713) CHLORIDE (BEAKER) (test 98 meq/L 98-107 mcbo=740) CO2 (BEAKER) (test 25 meq/L 22-29 slxn=942) BLOOD UREA NITROGEN 41 mg/dL 7-21 (BEAKER) (test hmjp=507) CREATININE (BEAKER) (test 2.98 mg/dL 0.57-1.25 ydlk=152) GLUCOSE RANDOM (BEAKER) 131 mg/dL 70-105 (test qcco=833) CALCIUM (BEAKER) (test 9.0 mg/dL 8.4-10.2 bilw=135) EGFR (BEAKER) (test 16 mL/min/1.73 sq m ESTIMATED GFR IS NOT lroc=6787) ACCURATE CREATININE CLEARANCE IN PREDICTING GLOMERULAR FILTRATION RATE. ESTIMATED GFR IS NOT APPLICABLE FOR DIALYSIS PATIENTS. POCT-GLUCOSE [id number] 06:53:00 Test Item Value Reference Range Comments POC-GLUCOSE METER ([facility]) 145 mg/dL 70-110 TESTED AT [address] (test yvzn=5293) [place] [address] CALCIUM, [id number] 06:50:00 Test Item Value Reference Range Comments CALCIUM IONIZED (BEAKER) (test ghke=315) 1.03 mmol/L 1.12-1.27 PH, BLOOD (BEAKER) (test nkbh=9892) 7.53 [id number] 06:47:00 Test Item Value Reference Range Comments PHOSPHORUS (BEAKER) (test sqhf=443) 4.1 mg/dL 2.3-4.7 [id number] 06:47:00 Test Item Value Reference Range Comments MAGNESIUM (BEAKER) (test semh=309) 1.8 mg/dL 1.6-2.6 CBC W/PLT COUNT & AUTO [id number] 06:27:00 Test Item Value Reference Range Comments WHITE BLOOD CELL COUNT (BEAKER) (test bugq=085) 7.9 K/ L 3.5-10.5 RED BLOOD CELL COUNT (BEAKER) (test vlob=588) 3.17 M/ L 3.93-5.22 HEMOGLOBIN (BEAKER) (test nian=091) 9.3 GM/DL 11.2-15.7 HEMATOCRIT (BEAKER) (test iufx=275) 28.8 % 34.1-44.9 MEAN CORPUSCULAR VOLUME (BEAKER) (test mtql=037) 90.9 fL 79.4-94.8 MEAN CORPUSCULAR HEMOGLOBIN (BEAKER) (test 29.3 pg 25.6-32.2 vyup=542) MEAN CORPUSCULAR HEMOGLOBIN CONC (BEAKER) (test 32.3 GM/DL 32.2-35.5 yxqv=286) RED CELL DISTRIBUTION WIDTH (BEAKER) (test 15.5 % 11.7-14.4 hbkf=046) PLATELET COUNT (BEAKER) (test nbno=188) 328 K/CU MM 150-450 MEAN PLATELET VOLUME (BEAKER) (test gnvm=930) 11.5 fL 9.4-12.3 NUCLEATED RED BLOOD CELLS (BEAKER) (test 0 /100 WBC 0-0 mzzw=900) NEUTROPHILS RELATIVE PERCENT (BEAKER) (test 69 % dpfi=211) LYMPHOCYTES RELATIVE PERCENT (BEAKER) (test 17 % akhv=996) MONOCYTES RELATIVE PERCENT (BEAKER) (test 11 % ddmu=092) EOSINOPHILS RELATIVE PERCENT (BEAKER) (test 1 % gmri=305) BASOPHILS RELATIVE PERCENT (BEAKER) (test 1 % llgn=390) NEUTROPHILS ABSOLUTE COUNT (BEAKER) (test 5.48 K/ L 1.56-6.13 qccl=149) LYMPHOCYTES ABSOLUTE COUNT (BEAKER) (test 1.33 K/ L 1.18-3.74 zseo=108) MONOCYTES ABSOLUTE COUNT (BEAKER) (test 0.90 K/ L 0.24-0.36 kyud=468) EOSINOPHILS ABSOLUTE COUNT (BEAKER) (test 0.11 K/ L 0.04-0.36 bfec=280) BASOPHILS ABSOLUTE COUNT (BEAKER) (test 0.04 K/ L 0.01-0.08 zcpv=433) IMMATURE GRANULOCYTES-RELATIVE PERCENT (BEAKER) 1 % 0-1 (test ajmh=0231) POCT-GLUCOSE [id number] 23:08:00 Test Item Value Reference Range Comments POC-GLUCOSE METER (BEAKER) 189 mg/dL 70-[address] [facility] [address] (test ysqp=1639) [facility] [address] ANG, TUNNELED CATHETER [id number] 14:52:00Reason for exam:-> Tunneled hemodialysis catheter insertionFINAL [...] real time ultrasound guidance. Images were stored on[employer]. Fluoroscopic assistance was then provided to place a catheter that was tunneled subcutaneouslyalong the right anterior chest. The tip of the catheter was positioned in the right atrium. The patient tolerated the procedure well without difficulty. Estimated blood loss was 10 ml . Conclusion: Placement of tunneled hemodialysis catheter. Signed: Carrie Quinteros MDReport Verified Date/Time: 06/04/2018 14:52:23 Reading Location: [place] [address] Angio Body Reading Room HEPATITIS B [id number] 12:38:00 Test Item Value Reference Range Comments HEPATITIS B CORE TOTAL ANTIBODY (BEAKER) (test Nonreactive Nonreactive zory=134) HEPATITIS B SURFACE ANTIBODY (BEAKER) (test 18.1 mIU/mL <8.0 bukz=211) HEPATITIS B SURFACE ANTIGEN (2) (BEAKER) (test Nonreactive Nonreactive qsta=6913) POCT-GLUCOSE [id number] 12:14:00 Test Item Value Reference Range Comments POC-GLUCOSE METER (BEAKER) 141 mg/dL 70-[address] [facility] [address] [place] [address] (test oxmj=1457) [facility] [address] PROTHROMBIN [id number] 10:32:00 Test Item Value Reference Range Comments PROTIME (BEAKER) (test zaxo=265) 14.6 seconds 11.7-14.7 INR (BEAKER) (test ghhw=497) 1.1 <=5.9 RECOMMENDED COUMADIN/WARFARIN INR THERAPY RANGESSTANDARD DOSE: 2.0 - 3.0 Includes: PROPHYLAXIS forvenous thrombosis, systemic embolization; TREATMENT for venous thrombosis and/or pulmonary embolus.HIGH RISK: Target INR is 2.5-3.5 for patients with mechanical heart valves.POCT-GLUCOSE [id number] 08:51:00 Test Item Value Reference Range Comments POC-GLUCOSE METER (BEAKER) 153 mg/dL 70-110 TESTED AT [address] (test cstq=5094) [place] [id number] BASIC METABOLIC [id number] 04:51:00 Test Item Value Reference Range Comments SODIUM (BEAKER) (test 131 meq/L 136-145 hiaj=156) POTASSIUM (BEAKER) (test 5.3 meq/L 3.5-5.1 ppdu=709) CHLORIDE (BEAKER) (test 96 meq/L 98-107 wabn=394) CO2 (BEAKER) (test 21 meq/L 22-29 nlyn=191) BLOOD UREA NITROGEN 91 mg/dL 7-21 (BEAKER) (test fgco=018) CREATININE (BEAKER) (test 5.00 mg/dL 0.57-1.25 ziwc=379) GLUCOSE RANDOM (BEAKER) 120 mg/dL 70-105 (test vwav=913) CALCIUM (BEAKER) (test 8.8 mg/dL 8.4-10.2 bfqz=781) EGFR (BEAKER) (test 9 mL/min/1.73 sq m ESTIMATED GFR IS NOT vpmb=6001) ACCURATE CREATININE CLEARANCE IN PREDICTING GLOMERULAR FILTRATION RATE. ESTIMATED GFR IS NOT APPLICABLE FOR DIALYSIS PATIENTS. [id number] 04:49:00 Test Item Value Reference Range Comments MAGNESIUM (BEAKER) (test lyql=073) 1.8 mg/dL 1.6-2.6 CBC W/PLT COUNT & AUTO [id number] 04:29:00 Test Item Value Reference Range Comments WHITE BLOOD CELL COUNT (BEAKER) (test ufui=508) 8.9 K/ L 3.5-10.5 RED BLOOD CELL COUNT (BEAKER) (test baen=197) 2.70 M/ L 3.93-5.22 HEMOGLOBIN (BEAKER) (test ijst=986) 7.8 GM/DL 11.2-15.7 HEMATOCRIT (BEAKER) (test nbpg=885) 24.4 % 34.1-44.9 MEAN CORPUSCULAR VOLUME (BEAKER) (test hkuz=051) 90.4 fL 79.4-94.8 MEAN CORPUSCULAR HEMOGLOBIN (BEAKER) (test 28.9 pg 25.6-32.2 hnab=540) MEAN CORPUSCULAR HEMOGLOBIN CONC (BEAKER) (test 32.0 GM/DL 32.2-35.5 gsvd=810) RED CELL DISTRIBUTION WIDTH (BEAKER) (test 15.2 % 11.7-14.4 veeu=866) PLATELET COUNT (BEAKER) (test akpt=064) 312 K/CU MM 150-450 MEAN PLATELET VOLUME (BEAKER) (test xuma=091) 11.9 fL 9.4-12.3 NUCLEATED RED BLOOD CELLS (BEAKER) (test 0 /100 WBC 0-0 jrho=791) NEUTROPHILS RELATIVE PERCENT (BEAKER) (test 62 % kled=476) LYMPHOCYTES RELATIVE PERCENT (BEAKER) (test 23 % ijbx=493) MONOCYTES RELATIVE PERCENT (BEAKER) (test 10 % knqt=433) EOSINOPHILS RELATIVE PERCENT (BEAKER) (test 5 % yfjf=966) BASOPHILS RELATIVE PERCENT (BEAKER) (test 1 % oqws=508) NEUTROPHILS ABSOLUTE COUNT (BEAKER) (test 5.48 K/ L 1.56-6.13 xtle=815) LYMPHOCYTES ABSOLUTE COUNT (BEAKER) (test 2.02 K/ L 1.18-3.74 hosx=284) MONOCYTES ABSOLUTE COUNT (BEAKER) (test 0.86 K/ L 0.24-0.36 vhmn=591) EOSINOPHILS ABSOLUTE COUNT (BEAKER) (test 0.41 K/ L 0.04-0.36 thwp=030) BASOPHILS ABSOLUTE COUNT (BEAKER) (test 0.06 K/ L 0.01-0.08 crud=010) IMMATURE GRANULOCYTES-RELATIVE PERCENT (BEAKER) 1 % 0-1 (test ccfq=2623) POCT-GLUCOSE [id number] 22:21:00 Test Item Value Reference Range Comments POC-GLUCOSE METER (BEAKER) 96 mg/dL 70-110 TESTED AT [address] (test swqc=1099) [place] [id number] POCT-GLUCOSE [id number] 17:52:00 Test Item Value Reference Range Comments POC-GLUCOSE METER (BEAKER) 154 mg/dL 70-110 TESTED AT [address] (test djbp=0484) [place] [id number] POCT-GLUCOSE [id number] 12:20:00 Test Item Value Reference Range Comments POC-GLUCOSE METER (BEAKER) 120 mg/dL 70-110 TESTED AT [address] (test momu=6629) [place] [id number] POCT-GLUCOSE [id number] 08:55:00 Test Item Value Reference Range Comments POC-GLUCOSE METER (BEAKER) 123 mg/dL 70-110 TESTED AT [address] (test hbka=9969) [place] [id number] BASIC METABOLIC [id number] 06:54:00 Test Item Value Reference Range Comments SODIUM (BEAKER) (test 131 meq/L 136-145 dfsl=822) POTASSIUM (BEAKER) (test 4.8 meq/L 3.5-5.1 crtl=339) CHLORIDE (BEAKER) (test 97 meq/L 98-107 qaqw=505) CO2 (BEAKER) (test 21 meq/L 22-29 piaj=720) BLOOD UREA NITROGEN 70 mg/dL 7-21 (BEAKER) (test ajuk=508) CREATININE (BEAKER) (test 4.49 mg/dL 0.57-1.25 hqnx=300) GLUCOSE RANDOM (BEAKER) 120 mg/dL 70-105 (test tfyp=313) CALCIUM (BEAKER) (test 8.5 mg/dL 8.4-10.2 ebdt=993) EGFR (BEAKER) (test 10 mL/min/1.73 sq m ESTIMATED GFR IS NOT wjts=1127) ACCURATE CREATININE CLEARANCE IN PREDICTING GLOMERULAR FILTRATION RATE. ESTIMATED GFR IS NOT APPLICABLE FOR DIALYSIS PATIENTS. [id number] 06:31:00 Test Item Value Reference Range Comments MAGNESIUM (BEAKER) (test gxfb=435) 1.7 mg/dL 1.6-2.6 CBC W/PLT COUNT & AUTO [id number] 05:08:00 Test Item Value Reference Range Comments WHITE BLOOD CELL COUNT (BEAKER) (test fqil=050) 11.2 K/ L 3.5-10.5 RED BLOOD CELL COUNT (BEAKER) (test fekc=938) 2.74 M/ L 3.93-5.22 HEMOGLOBIN (BEAKER) (test vhlh=393) 8.0 GM/DL 11.2-15.7 HEMATOCRIT (BEAKER) (test pnws=659) 25.1 % 34.1-44.9 MEAN CORPUSCULAR VOLUME (BEAKER) (test ndnk=606) 91.6 fL 79.4-94.8 MEAN CORPUSCULAR HEMOGLOBIN (BEAKER) (test 29.2 pg 25.6-32.2 qzdd=593) MEAN CORPUSCULAR HEMOGLOBIN CONC (BEAKER) (test 31.9 GM/DL 32.2-35.5 smix=675) RED CELL DISTRIBUTION WIDTH (BEAKER) (test 15.4 % 11.7-14.4 kifo=722) PLATELET COUNT (BEAKER) (test mfah=714) 310 K/CU MM 150-450 MEAN PLATELET VOLUME (BEAKER) (test jiiv=226) 11.5 fL 9.4-12.3 NUCLEATED RED BLOOD CELLS (BEAKER) (test 0 /100 WBC 0-0 yrad=716) NEUTROPHILS RELATIVE PERCENT (BEAKER) (test 64 % fwhe=026) LYMPHOCYTES RELATIVE PERCENT (BEAKER) (test 22 % dhyj=389) MONOCYTES RELATIVE PERCENT (BEAKER) (test 11 % hpfz=663) EOSINOPHILS RELATIVE PERCENT (BEAKER) (test 3 % wdry=493) BASOPHILS RELATIVE PERCENT (BEAKER) (test 1 % tuai=948) NEUTROPHILS ABSOLUTE COUNT (BEAKER) (test 7.10 K/ L 1.56-6.13 cghv=882) LYMPHOCYTES ABSOLUTE COUNT (BEAKER) (test 2.42 K/ L 1.18-3.74 dvri=952) MONOCYTES ABSOLUTE COUNT (BEAKER) (test 1.18 K/ L 0.24-0.36 ugxa=372) EOSINOPHILS ABSOLUTE COUNT (BEAKER) (test 0.29 K/ L 0.04-0.36 onon=019) BASOPHILS ABSOLUTE COUNT (BEAKER) (test 0.06 K/ L 0.01-0.08 pjwd=500) IMMATURE GRANULOCYTES-RELATIVE PERCENT (BEAKER) 1 % 0-1 (test arxj=1983) POCT-GLUCOSE [id number] 20:53:00 Test Item Value Reference Range Comments POC-GLUCOSE METER (BEAKER) 307 mg/dL 70-110 Notified SAMAN HERNANDEZ/TESTED AT [facility] (test irut=7187) [address] [place], [place] [id number] POCT-GLUCOSE [id number] 16:48:00 Test Item Value Reference Range Comments POC-GLUCOSE METER (BEAKER) 262 mg/dL 70-110 TESTED AT [address] (test kvet=4902) [place] [id number] POCT-GLUCOSE [id number] 15:33:00 Test Item Value Reference Range Comments POC-GLUCOSE METER (BEAKER) 204 mg/dL 70-110 TESTED AT [address] (test imsp=7602) [place] [id number] POCT-GLUCOSE [id number] 08:38:00 Test Item Value Reference Range Comments POC-GLUCOSE METER (BEAKER) 143 mg/dL 70-110 TESTED AT [address] (test fxcs=8447) [place] [id number] BASIC METABOLIC [id number] 04:30:00 Test Item Value Reference Range Comments SODIUM (BEAKER) (test 134 meq/L 136-145 hzoh=635) POTASSIUM (BEAKER) (test 4.3 meq/L 3.5-5.1 rwkj=458) CHLORIDE (BEAKER) (test 98 meq/L 98-107 gobw=293) CO2 (BEAKER) (test 25 meq/L 22-29 zvdg=557) BLOOD UREA NITROGEN 51 mg/dL 7-21 (BEAKER) (test vnrd=308) CREATININE (BEAKER) (test 3.85 mg/dL 0.57-1.25 zsfi=130) GLUCOSE RANDOM (BEAKER) 133 mg/dL 70-105 (test dqgg=652) CALCIUM (BEAKER) (test 8.7 mg/dL 8.4-10.2 yfnl=740) EGFR (BEAKER) (test 12 mL/min/1.73 sq m ESTIMATED GFR IS NOT tkdm=4853) ACCURATE CREATININE CLEARANCE IN PREDICTING GLOMERULAR FILTRATION RATE. ESTIMATED GFR IS NOT APPLICABLE FOR DIALYSIS PATIENTS. [id number] 04:16:00 Test Item Value Reference Range Comments MAGNESIUM (BEAKER) (test soqc=017) 1.8 mg/dL 1.6-2.6 CBC W/PLT COUNT & AUTO [id number] 03:57:00 Test Item Value Reference Range Comments WHITE BLOOD CELL COUNT (BEAKER) (test bgrp=790) 10.3 K/ L 3.5-10.5 RED BLOOD CELL COUNT (BEAKER) (test eqvu=976) 2.83 M/ L 3.93-5.22 HEMOGLOBIN (BEAKER) (test shzo=224) 8.2 GM/DL 11.2-15.7 HEMATOCRIT (BEAKER) (test ibsi=530) 26.0 % 34.1-44.9 MEAN CORPUSCULAR VOLUME (BEAKER) (test glbu=204) 91.9 fL 79.4-94.8 MEAN CORPUSCULAR HEMOGLOBIN (BEAKER) (test 29.0 pg 25.6-32.2 pbrt=944) MEAN CORPUSCULAR HEMOGLOBIN CONC (BEAKER) (test 31.5 GM/DL 32.2-35.5 isoe=443) RED CELL DISTRIBUTION WIDTH (BEAKER) (test 15.2 % 11.7-14.4 jtnb=333) PLATELET COUNT (BEAKER) (test drlj=929) 357 K/CU MM 150-450 MEAN PLATELET VOLUME (BEAKER) (test vdgf=414) 11.5 fL 9.4-12.3 NUCLEATED RED BLOOD CELLS (BEAKER) (test 0 /100 WBC 0-0 ixxq=286) NEUTROPHILS RELATIVE PERCENT (BEAKER) (test 65 % egph=500) LYMPHOCYTES RELATIVE PERCENT (BEAKER) (test 21 % dtev=821) MONOCYTES RELATIVE PERCENT (BEAKER) (test 10 % lreo=921) EOSINOPHILS RELATIVE PERCENT (BEAKER) (test 2 % emod=548) BASOPHILS RELATIVE PERCENT (BEAKER) (test 1 % dmqi=900) NEUTROPHILS ABSOLUTE COUNT (BEAKER) (test 6.67 K/ L 1.56-6.13 qolo=638) LYMPHOCYTES ABSOLUTE COUNT (BEAKER) (test 2.19 K/ L 1.18-3.74 ouui=932) MONOCYTES ABSOLUTE COUNT (BEAKER) (test 1.05 K/ L 0.24-0.36 ydcp=623) EOSINOPHILS ABSOLUTE COUNT (BEAKER) (test 0.25 K/ L 0.04-0.36 ddhy=203) BASOPHILS ABSOLUTE COUNT (BEAKER) (test 0.07 K/ L 0.01-0.08 xojz=403) IMMATURE GRANULOCYTES-RELATIVE PERCENT (BEAKER) 1 % 0-1 (test rdoi=2318) POCT-GLUCOSE [id number] 21:00:00 Test Item Value Reference Range Comments POC-GLUCOSE METER (BEAKER) 286 mg/dL 70-110 TESTED AT [address] (test hzkx=1926) [place] [id number] POCT-GLUCOSE [id number] 20:08:00 Test Item Value Reference Range Comments POC-GLUCOSE METER (BEAKER) 317 mg/dL 70-110 TESTED AT [address] (test omrq=1744) [place] [id number] POCT-GLUCOSE [id number] 11:48:00 Test Item Value Reference Range Comments POC-GLUCOSE METER (BEAKER) 249 mg/dL 70-110 TESTED AT [address] (test lzdg=8684) [facility] [address] POCT-GLUCOSE [id number] 08:11:00 Test Item Value Reference Range Comments POC-GLUCOSE METER (BEAKER) 236 mg/dL 70-110 TESTED AT [address] (test mxxd=4363) [place] [id number] 06:57:00 Test Item Value Reference Range Comments MAGNESIUM (BEAKER) (test znju=506) 1.9 mg/dL 1.6-2.6 BASIC METABOLIC [id number] 06:57:00 Test Item Value Reference Range Comments SODIUM (BEAKER) (test 135 meq/L 136-145 qcvm=108) POTASSIUM (BEAKER) (test 4.1 meq/L 3.5-5.1 tymi=174) CHLORIDE (BEAKER) (test 99 meq/L 98-107 jqmm=097) CO2 (BEAKER) (test 25 meq/L 22-29 nbbe=491) BLOOD UREA NITROGEN 26 mg/dL 7-21 (BEAKER) (test isqu=216) CREATININE (BEAKER) (test 2.97 mg/dL 0.57-1.25 qpzr=072) GLUCOSE RANDOM (BEAKER) 226 mg/dL 70-105 (test ixlz=627) CALCIUM (BEAKER) (test 8.6 mg/dL 8.4-10.2 qvay=345) EGFR (BEAKER) (test 16 mL/min/1.73 sq m ESTIMATED GFR IS NOT naer=9623) ACCURATE CREATININE CLEARANCE IN PREDICTING GLOMERULAR FILTRATION RATE. ESTIMATED GFR IS NOT APPLICABLE FOR DIALYSIS PATIENTS. CBC W/PLT COUNT & AUTO [id number] 06:34:00 Test Item Value Reference Range Comments WHITE BLOOD CELL COUNT (BEAKER) (test kyxc=135) 9.8 K/ L 3.5-10.5 RED BLOOD CELL COUNT (BEAKER) (test ealo=806) 2.89 M/ L 3.93-5.22 HEMOGLOBIN (BEAKER) (test abjr=367) 8.5 GM/DL 11.2-15.7 HEMATOCRIT (BEAKER) (test jpsp=963) 26.8 % 34.1-44.9 MEAN CORPUSCULAR VOLUME (BEAKER) (test qdnj=899) 92.7 fL 79.4-94.8 MEAN CORPUSCULAR HEMOGLOBIN (BEAKER) (test 29.4 pg 25.6-32.2 typc=969) MEAN CORPUSCULAR HEMOGLOBIN CONC (BEAKER) (test 31.7 GM/DL 32.2-35.5 djqh=380) RED CELL DISTRIBUTION WIDTH (BEAKER) (test 15.2 % 11.7-14.4 aurb=367) PLATELET COUNT (BEAKER) (test pznz=673) 348 K/CU MM 150-450 MEAN PLATELET VOLUME (BEAKER) (test bddh=332) 11.7 fL 9.4-12.3 NUCLEATED RED BLOOD CELLS (BEAKER) (test 0 /100 WBC 0-0 ouab=064) NEUTROPHILS RELATIVE PERCENT (BEAKER) (test 72 % uskk=854) LYMPHOCYTES RELATIVE PERCENT (BEAKER) (test 16 % szgw=630) MONOCYTES RELATIVE PERCENT (BEAKER) (test 9 % emdt=954) EOSINOPHILS RELATIVE PERCENT (BEAKER) (test 2 % xuij=631) BASOPHILS RELATIVE PERCENT (BEAKER) (test 1 % zmqq=652) NEUTROPHILS ABSOLUTE COUNT (BEAKER) (test 7.03 K/ L 1.56-6.13 qrqm=293) LYMPHOCYTES ABSOLUTE COUNT (BEAKER) (test 1.56 K/ L 1.18-3.74 srwv=264) MONOCYTES ABSOLUTE COUNT (BEAKER) (test 0.88 K/ L 0.24-0.36 lfbf=740) EOSINOPHILS ABSOLUTE COUNT (BEAKER) (test 0.17 K/ L 0.04-0.36 vgpa=075) BASOPHILS ABSOLUTE COUNT (BEAKER) (test 0.05 K/ L 0.01-0.08 mbwb=748) IMMATURE GRANULOCYTES-RELATIVE PERCENT (BEAKER) 1 % 0-1 (test usrz=7048) POCT-GLUCOSE [id number] 21:44:00 Test Item Value Reference Range Comments POC-GLUCOSE METER (BEAKER) 220 mg/dL 70-110 TESTED AT [address] (test krsz=9679) [place] [address] POCT-GLUCOSE [id number] 17:01:00 Test Item Value Reference Range Comments POC-GLUCOSE METER (BEAKER) 272 mg/dL 70-110 TESTED AT [address] (test jhrh=4550) [place] [address] POCT-GLUCOSE [id number] 13:06:00 Test Item Value Reference Range Comments POC-GLUCOSE METER (BEAKER) 323 mg/dL 70-110 Notified SAMAN HERNANDEZ/TESTED AT [facility] (test ubvx=2237) [address] [place] [address] POCT-GLUCOSE [id number] 07:30:00 Test Item Value Reference Range Comments POC-GLUCOSE METER (BEAKER) 284 mg/dL 70-110 TESTED AT [address] (test fwvq=5498) [place] [address] BASIC METABOLIC [id number] 06:58:00 Test Item Value Reference Range Comments SODIUM (BEAKER) (test 132 meq/L 136-145 whvu=759) POTASSIUM (BEAKER) (test 4.0 meq/L 3.5-5.1 lywy=330) CHLORIDE (BEAKER) (test 95 meq/L 98-107 nbzb=035) CO2 (BEAKER) (test 25 meq/L 22-29 jher=406) BLOOD UREA NITROGEN 45 mg/dL 7-21 (BEAKER) (test ovax=413) CREATININE (BEAKER) (test 4.37 mg/dL 0.57-1.25 dkph=423) GLUCOSE RANDOM (BEAKER) 136 mg/dL 70-105 (test sbpj=687) CALCIUM (BEAKER) (test 9.2 mg/dL 8.4-10.2 lxjd=215) EGFR (BEAKER) (test 10 mL/min/1.73 sq m ESTIMATED GFR IS NOT uweg=8022) ACCURATE CREATININE CLEARANCE IN PREDICTING GLOMERULAR FILTRATION RATE. ESTIMATED GFR IS NOT APPLICABLE FOR DIALYSIS PATIENTS. [id number] 06:56:00 Test Item Value Reference Range Comments MAGNESIUM (BEAKER) (test ofbt=896) 1.8 mg/dL 1.6-2.6 CBC W/PLT COUNT & AUTO [id number] 06:39:00 Test Item Value Reference Range Comments WHITE BLOOD CELL COUNT (BEAKER) (test tlgt=107) 10.9 K/ L 3.5-10.5 RED BLOOD CELL COUNT (BEAKER) (test ewlm=333) 2.94 M/ L 3.93-5.22 HEMOGLOBIN (BEAKER) (test crgw=699) 8.7 GM/DL 11.2-15.7 HEMATOCRIT (BEAKER) (test xzsy=463) 27.2 % 34.1-44.9 MEAN CORPUSCULAR VOLUME (BEAKER) (test xtwe=485) 92.5 fL 79.4-94.8 MEAN CORPUSCULAR HEMOGLOBIN (BEAKER) (test 29.6 pg 25.6-32.2 fbwy=722) MEAN CORPUSCULAR HEMOGLOBIN CONC (BEAKER) (test 32.0 GM/DL 32.2-35.5 mrla=521) RED CELL DISTRIBUTION WIDTH (BEAKER) (test 15.7 % 11.7-14.4 wcqk=093) PLATELET COUNT (BEAKER) (test enac=301) 385 K/CU MM 150-450 MEAN PLATELET VOLUME (BEAKER) (test txii=288) 11.3 fL 9.4-12.3 NUCLEATED RED BLOOD CELLS (BEAKER) (test 0 /100 WBC 0-0 ndxq=945) NEUTROPHILS RELATIVE PERCENT (BEAKER) (test 63 % ujfp=893) LYMPHOCYTES RELATIVE PERCENT (BEAKER) (test 21 % ngqk=880) MONOCYTES RELATIVE PERCENT (BEAKER) (test 11 % rclh=818) EOSINOPHILS RELATIVE PERCENT (BEAKER) (test 4 % tkmd=286) BASOPHILS RELATIVE PERCENT (BEAKER) (test 1 % ajfr=886) NEUTROPHILS ABSOLUTE COUNT (BEAKER) (test 6.86 K/ L 1.56-6.13 qdwh=065) LYMPHOCYTES ABSOLUTE COUNT (BEAKER) (test 2.29 K/ L 1.18-3.74 pbjh=432) MONOCYTES ABSOLUTE COUNT (BEAKER) (test 1.15 K/ L 0.24-0.36 olzg=990) EOSINOPHILS ABSOLUTE COUNT (BEAKER) (test 0.43 K/ L 0.04-0.36 vpzx=215) BASOPHILS ABSOLUTE COUNT (BEAKER) (test 0.09 K/ L 0.01-0.08 zrhr=572) IMMATURE GRANULOCYTES-RELATIVE PERCENT (BEAKER) 1 % 0-1 (test ymmw=6658) POCT-GLUCOSE [id number] 21:19:00 Test Item Value Reference Range Comments POC-GLUCOSE METER (BEAKER) 326 mg/dL 70-110 TESTED AT [place] [address] [facility] (test uuiq=9864) [facility] [address] POCT-GLUCOSE [id number] 17:23:00 Test Item Value Reference Range Comments POC-GLUCOSE METER (BEAKER) 357 mg/dL 70-110 Notified SAMAN HERNANDEZ/TESTED AT [facility] (test xvhy=9494) [facility] [address] BASIC METABOLIC [id number] 04:34:00 Test Item Value Reference Range Comments SODIUM (BEAKER) (test 140 meq/L 136-145 bsfz=155) POTASSIUM (BEAKER) (test 4.3 meq/L 3.5-5.1 Specimen slightly xnhn=175) hemolyzed CHLORIDE (BEAKER) (test 101 meq/L 98-107 juvw=958) CO2 (BEAKER) (test 28 meq/L 22-29 zcqs=532) BLOOD UREA NITROGEN 22 mg/dL 7-21 (BEAKER) (test ijhh=048) CREATININE (BEAKER) (test 2.88 mg/dL 0.57-1.25 Specimen slightly mmzj=129) hemolyzed GLUCOSE RANDOM (BEAKER) 220 mg/dL 70-105 (test khyc=646) CALCIUM (BEAKER) (test 9.2 mg/dL 8.4-10.2 nagk=003) EGFR (BEAKER) (test 16 mL/min/1.73 sq m ESTIMATED GFR IS NOT frdw=6803) ACCURATE CREATININE CLEARANCE IN PREDICTING GLOMERULAR FILTRATION RATE. ESTIMATED GFR IS NOT APPLICABLE FOR DIALYSIS PATIENTS. [id number] 04:33:00 Test Item Value Reference Range Comments MAGNESIUM (BEAKER) (test 2.0 mg/dL 1.6-2.6 Specimen slightly hemolyzed vdfa=543) CBC W/PLT COUNT & AUTO [id number] 04:23:00 Test Item Value Reference Range Comments WHITE BLOOD CELL COUNT (BEAKER) (test rocy=183) 9.5 K/ L 3.5-10.5 RED BLOOD CELL COUNT (BEAKER) (test imqb=318) 3.10 M/ L 3.93-5.22 HEMOGLOBIN (BEAKER) (test twma=004) 9.1 GM/DL 11.2-15.7 HEMATOCRIT (BEAKER) (test mvgt=347) 28.7 % 34.1-44.9 MEAN CORPUSCULAR VOLUME (BEAKER) (test nwuy=875) 92.6 fL 79.4-94.8 MEAN CORPUSCULAR HEMOGLOBIN (BEAKER) (test 29.4 pg 25.6-32.2 bldi=134) MEAN CORPUSCULAR HEMOGLOBIN CONC (BEAKER) (test 31.7 GM/DL 32.2-35.5 scjz=545) RED CELL DISTRIBUTION WIDTH (BEAKER) (test 15.8 % 11.7-14.4 maqi=788) PLATELET COUNT (BEAKER) (test ykei=565) 387 K/CU MM 150-450 MEAN PLATELET VOLUME (BEAKER) (test vhdr=620) 11.5 fL 9.4-12.3 NUCLEATED RED BLOOD CELLS (BEAKER) (test 0 /100 WBC 0-0 nkpl=701) NEUTROPHILS RELATIVE PERCENT (BEAKER) (test 66 % scmq=357) LYMPHOCYTES RELATIVE PERCENT (BEAKER) (test 19 % poap=141) MONOCYTES RELATIVE PERCENT (BEAKER) (test 11 % effz=666) EOSINOPHILS RELATIVE PERCENT (BEAKER) (test 2 % dkdq=091) BASOPHILS RELATIVE PERCENT (BEAKER) (test 1 % vkxi=148) NEUTROPHILS ABSOLUTE COUNT (BEAKER) (test 6.28 K/ L 1.56-6.13 jozt=861) LYMPHOCYTES ABSOLUTE COUNT (BEAKER) (test 1.79 K/ L 1.18-3.74 yyyt=265) MONOCYTES ABSOLUTE COUNT (BEAKER) (test 1.02 K/ L 0.24-0.36 hoqd=515) EOSINOPHILS ABSOLUTE COUNT (BEAKER) (test 0.21 K/ L 0.04-0.36 zlxq=405) BASOPHILS ABSOLUTE COUNT (BEAKER) (test 0.07 K/ L 0.01-0.08 vsch=407) IMMATURE GRANULOCYTES-RELATIVE PERCENT (BEAKER) 1 % 0-1 (test zvbx=3374) POCT-GLUCOSE [id number] 20:49:00 Test Item Value Reference Range Comments POC-GLUCOSE METER (BEAKER) 283 mg/dL 70-110 TESTED AT [address] (test osfe=3319) [facility] [address] POCT-GLUCOSE [id number] 17:16:00 Test Item Value Reference Range Comments POC-GLUCOSE METER (BEAKER) 193 mg/dL 70-110 TESTED AT [address] (test wfak=7666) [facility] [address] POCT-GLUCOSE [id number] 11:47:00 Test Item Value Reference Range Comments POC-GLUCOSE METER (BEAKER) 316 mg/dL 70-110 Verify with Lab draw/TESTED AT (test qkpl=7858) [address] [address] BASIC METABOLIC [id number] 07:53:00 Test Item Value Reference Range Comments SODIUM (BEAKER) (test 129 meq/L 136-145 zcrj=534) POTASSIUM (BEAKER) (test 3.9 meq/L 3.5-5.1 oouk=917) CHLORIDE (BEAKER) (test 94 meq/L 98-107 xwsm=490) CO2 (BEAKER) (test 20 meq/L 22-29 xgxf=136) BLOOD UREA NITROGEN 58 mg/dL 7-21 (BEAKER) (test bmgl=307) CREATININE (BEAKER) (test 5.50 mg/dL 0.57-1.25 nzpz=187) GLUCOSE RANDOM (BEAKER) 209 mg/dL 70-105 (test atcu=721) CALCIUM (BEAKER) (test 9.1 mg/dL 8.4-10.2 evkg=270) EGFR (BEAKER) (test 8 mL/min/1.73 sq m ESTIMATED GFR IS NOT bvaa=0544) ACCURATE CREATININE CLEARANCE IN PREDICTING GLOMERULAR FILTRATION RATE. ESTIMATED GFR IS NOT APPLICABLE FOR DIALYSIS PATIENTS. [id number] 07:52:00 Test Item Value Reference Range Comments PHOSPHORUS (BEAKER) (test mmve=488) 5.8 mg/dL 2.3-4.7 [id number] 07:52:00 Test Item Value Reference Range Comments MAGNESIUM (BEAKER) (test btvw=277) 1.8 mg/dL 1.6-2.6 POCT-GLUCOSE [id number] 07:41:00 Test Item Value Reference Range Comments POC-GLUCOSE METER (BEAKER) 226 mg/dL 70-[address] [facility] [address] [place] [address] (test uoso=9954) [facility] [address] B-TYPE NATRIURETIC FACTOR (BNP)[id number] 07:06:00 Test Item Value Reference Range Comments B-TYPE NATRIURETIC PEPTIDE (BEAKER) (test 306 pg/mL 0-100 wqwr=698) CBC W/PLT COUNT & AUTO [id number] 06:50:00 Test Item Value Reference Range Comments WHITE BLOOD CELL COUNT (BEAKER) (test iqip=456) 13.0 K/ L 3.5-10.5 RED BLOOD CELL COUNT (BEAKER) (test itfu=641) 3.00 M/ L 3.93-5.22 HEMOGLOBIN (BEAKER) (test zpnn=606) 8.9 GM/DL 11.2-15.7 HEMATOCRIT (BEAKER) (test phbr=375) 27.7 % 34.1-44.9 MEAN CORPUSCULAR VOLUME (BEAKER) (test gufm=232) 92.3 fL 79.4-94.8 MEAN CORPUSCULAR HEMOGLOBIN (BEAKER) (test 29.7 pg 25.6-32.2 tqzz=354) MEAN CORPUSCULAR HEMOGLOBIN CONC (BEAKER) (test 32.1 GM/DL 32.2-35.5 kspk=524) RED CELL DISTRIBUTION WIDTH (BEAKER) (test 15.8 % 11.7-14.4 jvwd=631) PLATELET COUNT (BEAKER) (test clma=824) 370 K/CU MM 150-450 MEAN PLATELET VOLUME (BEAKER) (test sawr=436) 11.7 fL 9.4-12.3 NUCLEATED RED BLOOD CELLS (BEAKER) (test 0 /100 WBC 0-0 hocv=694) NEUTROPHILS RELATIVE PERCENT (BEAKER) (test 69 % srpl=072) LYMPHOCYTES RELATIVE PERCENT (BEAKER) (test 17 % hasj=459) MONOCYTES RELATIVE PERCENT (BEAKER) (test 10 % zvwn=578) EOSINOPHILS RELATIVE PERCENT (BEAKER) (test 2 % dase=846) BASOPHILS RELATIVE PERCENT (BEAKER) (test 1 % ozac=608) NEUTROPHILS ABSOLUTE COUNT (BEAKER) (test 8.88 K/ L 1.56-6.13 gbyp=710) LYMPHOCYTES ABSOLUTE COUNT (BEAKER) (test 2.26 K/ L 1.18-3.74 hkaz=257) MONOCYTES ABSOLUTE COUNT (BEAKER) (test 1.29 K/ L 0.24-0.36 fpwr=229) EOSINOPHILS ABSOLUTE COUNT (BEAKER) (test 0.31 K/ L 0.04-0.36 cdtv=013) BASOPHILS ABSOLUTE COUNT (BEAKER) (test 0.06 K/ L 0.01-0.08 lfoa=883) IMMATURE GRANULOCYTES-RELATIVE PERCENT (BEAKER) 1 % 0-1 (test suzd=7473) POCT-GLUCOSE [id number] 21:57:00 Test Item Value Reference Range Comments POC-GLUCOSE METER (BEAKER) 328 mg/dL 70-110 Will Repeat Test/TESTED AT (test ccdl=1556) [place] [address] POCT-GLUCOSE [id number] 12:39:00 Test Item Value Reference Range Comments POC-GLUCOSE METER (BEAKER) 309 mg/dL 70-110 TESTED AT [address] (test irvo=9208) [place] [address] POCT-GLUCOSE [id number] 08:32:00 Test Item Value Reference Range Comments POC-GLUCOSE METER (BEAKER) 204 mg/dL 70-110 TESTED AT [address] (test qyeb=4897) [place] [address] BASIC METABOLIC [id number] 05:23:00 Test Item Value Reference Range Comments SODIUM (BEAKER) (test 134 meq/L 136-145 dird=281) POTASSIUM (BEAKER) (test 4.3 meq/L 3.5-5.1 vfvn=158) CHLORIDE (BEAKER) (test 99 meq/L 98-107 qhyu=875) CO2 (BEAKER) (test 24 meq/L 22-29 vojg=260) BLOOD UREA NITROGEN 37 mg/dL 7-21 (BEAKER) (test kayt=625) CREATININE (BEAKER) (test 4.04 mg/dL 0.57-1.25 pxav=731) GLUCOSE RANDOM (BEAKER) 124 mg/dL 70-105 (test qvxn=785) CALCIUM (BEAKER) (test 9.3 mg/dL 8.4-10.2 qnnd=462) EGFR (BEAKER) (test 11 mL/min/1.73 sq m ESTIMATED GFR IS NOT csdh=8777) ACCURATE CREATININE CLEARANCE IN PREDICTING GLOMERULAR FILTRATION RATE. ESTIMATED GFR IS NOT APPLICABLE FOR DIALYSIS PATIENTS. [id number] 05:20:00 Test Item Value Reference Range Comments PHOSPHORUS (BEAKER) (test czax=189) 4.4 mg/dL 2.3-4.7 [id number] 05:20:00 Test Item Value Reference Range Comments MAGNESIUM (BEAKER) (test ewqi=358) 1.9 mg/dL 1.6-2.6 CBC W/PLT COUNT & AUTO [id number] 04:48:00 Test Item Value Reference Range Comments WHITE BLOOD CELL COUNT (BEAKER) (test itao=904) 11.8 K/ L 3.5-10.5 RED BLOOD CELL COUNT (BEAKER) (test xove=927) 3.22 M/ L 3.93-5.22 HEMOGLOBIN (BEAKER) (test gngp=751) 9.4 GM/DL 11.2-15.7 HEMATOCRIT (BEAKER) (test wfjk=264) 30.2 % 34.1-44.9 MEAN CORPUSCULAR VOLUME (BEAKER) (test owww=625) 93.8 fL 79.4-94.8 MEAN CORPUSCULAR HEMOGLOBIN (BEAKER) (test 29.2 pg 25.6-32.2 scjb=296) MEAN CORPUSCULAR HEMOGLOBIN CONC (BEAKER) (test 31.1 GM/DL 32.2-35.5 mlls=090) RED CELL DISTRIBUTION WIDTH (BEAKER) (test 15.7 % 11.7-14.4 ahxq=533) PLATELET COUNT (BEAKER) (test dhgi=049) 358 K/CU MM 150-450 MEAN PLATELET VOLUME (BEAKER) (test lijr=793) 11.7 fL 9.4-12.3 NUCLEATED RED BLOOD CELLS (BEAKER) (test 0 /100 WBC 0-0 fvsp=560) NEUTROPHILS RELATIVE PERCENT (BEAKER) (test 65 % peol=603) LYMPHOCYTES RELATIVE PERCENT (BEAKER) (test 19 % cwej=993) MONOCYTES RELATIVE PERCENT (BEAKER) (test 10 % pfly=903) EOSINOPHILS RELATIVE PERCENT (BEAKER) (test 3 % tape=829) BASOPHILS RELATIVE PERCENT (BEAKER) (test 1 % herc=201) NEUTROPHILS ABSOLUTE COUNT (BEAKER) (test 7.73 K/ L 1.56-6.13 ivay=204) LYMPHOCYTES ABSOLUTE COUNT (BEAKER) (test 2.29 K/ L 1.18-3.74 tagj=173) MONOCYTES ABSOLUTE COUNT (BEAKER) (test 1.20 K/ L 0.24-0.36 xeyw=912) EOSINOPHILS ABSOLUTE COUNT (BEAKER) (test 0.38 K/ L 0.04-0.36 ueax=885) BASOPHILS ABSOLUTE COUNT (BEAKER) (test 0.07 K/ L 0.01-0.08 sobo=121) IMMATURE GRANULOCYTES-RELATIVE PERCENT (BEAKER) 1 % 0-1 (test svms=2034) POCT-GLUCOSE [id number] 22:03:00 Test Item Value Reference Range Comments POC-GLUCOSE METER (BEAKER) 152 mg/dL 70-110 TESTED AT [address] (test ktyq=0802) [facility] [address] POCT-GLUCOSE [id number] 18:20:00 Test Item Value Reference Range Comments POC-GLUCOSE METER (BEAKER) 255 mg/dL 70-110 TESTED AT [address] (test ngaw=3290) [facility] [address] POCT-GLUCOSE [id number] 12:27:00 Test Item Value Reference Range Comments POC-GLUCOSE METER (BEAKER) 315 mg/dL 70-110 Notified SAMAN HERNANDEZ/TESTED AT [facility] (test fccw=0710) [address] [place] [address] POCT-GLUCOSE [id number] 08:05:00 Test Item Value Reference Range Comments POC-GLUCOSE METER (BEAKER) 198 mg/dL 70-[address] [facility] [address] (test vykm=0314) [place] [address] CALCIUM, [id number] 05:39:00 Test Item Value Reference Range Comments CALCIUM IONIZED (BEAKER) (test uozf=559) 1.12 mmol/L 1.12-1.27 PH, BLOOD (BEAKER) (test bdwo=2989) 7.41 COMPREHENSIVE METABOLIC [id number] 04:53:00 Test Item Value Reference Range Comments TOTAL PROTEIN (BEAKER) 7.2 gm/dL 6.0-8.3 (test qaha=487) ALBUMIN (BEAKER) (test 3.2 g/dL 3.5-5.0 yoqh=0388) ALKALINE PHOSPHATASE 212 U/L 40-150 (BEAKER) (test fgtg=207) BILIRUBIN TOTAL (BEAKER) 0.3 mg/dL 0.2-1.2 (test wtsh=016) SODIUM (BEAKER) (test 135 meq/L 136-145 vnjf=705) POTASSIUM (BEAKER) (test 3.8 meq/L 3.5-5.1 kila=700) CHLORIDE (BEAKER) (test 98 meq/L 98-107 fqim=072) CO2 (BEAKER) (test 27 meq/L 22-29 zbwu=032) BLOOD UREA NITROGEN 18 mg/dL 7-21 (BEAKER) (test auxe=276) CREATININE (BEAKER) (test 2.42 mg/dL 0.57-1.25 wwcs=824) GLUCOSE RANDOM (BEAKER) 211 mg/dL 70-105 (test uoyb=191) CALCIUM (BEAKER) (test 9.1 mg/dL 8.4-10.2 utef=670) AST (SGOT) (BEAKER) (test 35 U/L 5-34 ibsn=895) ALT (SGPT) (BEAKER) (test 28 U/L 6-55 wwqz=509) EGFR (BEAKER) (test 20 mL/min/1.73 sq m ESTIMATED GFR IS NOT oslj=4465) ACCURATE CREATININE CLEARANCE IN PREDICTING GLOMERULAR FILTRATION RATE. ESTIMATED GFR IS NOT APPLICABLE FOR DIALYSIS PATIENTS. [id number] 04:47:00 Test Item Value Reference Range Comments PHOSPHORUS (BEAKER) (test kban=740) 3.5 mg/dL 2.3-4.7 [id number] 04:47:00 Test Item Value Reference Range Comments MAGNESIUM (BEAKER) (test wwmc=516) 1.8 mg/dL 1.6-2.6 CBC W/PLT COUNT & AUTO [id number] 04:24:00 Test Item Value Reference Range Comments WHITE BLOOD CELL COUNT (BEAKER) (test arsk=939) 9.7 K/ L 3.5-10.5 RED BLOOD CELL COUNT (BEAKER) (test sqpq=047) 3.14 M/ L 3.93-5.22 HEMOGLOBIN (BEAKER) (test zimp=378) 9.1 GM/DL 11.2-15.7 HEMATOCRIT (BEAKER) (test qedy=128) 29.2 % 34.1-44.9 MEAN CORPUSCULAR VOLUME (BEAKER) (test wqty=867) 93.0 fL 79.4-94.8 MEAN CORPUSCULAR HEMOGLOBIN (BEAKER) (test 29.0 pg 25.6-32.2 jnef=437) MEAN CORPUSCULAR HEMOGLOBIN CONC (BEAKER) (test 31.2 GM/DL 32.2-35.5 liyi=179) RED CELL DISTRIBUTION WIDTH (BEAKER) (test 15.9 % 11.7-14.4 ynxx=222) PLATELET COUNT (BEAKER) (test rzmz=529) 331 K/CU MM 150-450 MEAN PLATELET VOLUME (BEAKER) (test qoiv=794) 11.4 fL 9.4-12.3 NUCLEATED RED BLOOD CELLS (BEAKER) (test 0 /100 WBC 0-0 feve=794) NEUTROPHILS RELATIVE PERCENT (BEAKER) (test 62 % bubq=374) LYMPHOCYTES RELATIVE PERCENT (BEAKER) (test 20 % ujrz=678) MONOCYTES RELATIVE PERCENT (BEAKER) (test 14 % zjiy=826) EOSINOPHILS RELATIVE PERCENT (BEAKER) (test 3 % utds=234) BASOPHILS RELATIVE PERCENT (BEAKER) (test 0 % bdtj=777) NEUTROPHILS ABSOLUTE COUNT (BEAKER) (test 6.00 K/ L 1.56-6.13 fbdm=767) LYMPHOCYTES ABSOLUTE COUNT (BEAKER) (test 1.89 K/ L 1.18-3.74 jatb=910) MONOCYTES ABSOLUTE COUNT (BEAKER) (test 1.31 K/ L 0.24-0.36 nkzb=374) EOSINOPHILS ABSOLUTE COUNT (BEAKER) (test 0.29 K/ L 0.04-0.36 tfzj=731) BASOPHILS ABSOLUTE COUNT (BEAKER) (test 0.04 K/ L 0.01-0.08 bxsa=748) IMMATURE GRANULOCYTES-RELATIVE PERCENT (BEAKER) 1 % 0-1 (test iwdn=9933) POCT-GLUCOSE [id number] 22:46:00 Test Item Value Reference Range Comments POC-GLUCOSE METER (BEAKER) 266 mg/dL 70-110 TESTED AT [address] (test wgma=2007) [place] [id number] POCT-GLUCOSE [id number] 17:28:00 Test Item Value Reference Range Comments POC-GLUCOSE METER (BEAKER) 194 mg/dL 70-110 TESTED AT [address] (test baxx=8398) [place] [id number] POCT-GLUCOSE [id number] 12:03:00 Test Item Value Reference Range Comments POC-GLUCOSE METER (BEAKER) 305 mg/dL 70-110 TESTED AT [address] (test qhdr=8869) [facility] [id number] POCT-GLUCOSE [id number] 08:46:00 Test Item Value Reference Range Comments POC-GLUCOSE METER (BEAKER) 210 mg/dL 70-110 TESTED AT [address] (test vvdc=0333) [facility] [address] CBC W/PLT COUNT & AUTO [id number] 06:41:00 Test Item Value Reference Range Comments WHITE BLOOD CELL COUNT (BEAKER) (test johx=245) 9.6 K/ L 3.5-10.5 RED BLOOD CELL COUNT (BEAKER) (test jhtp=120) 2.98 M/ L 3.93-5.22 HEMOGLOBIN (BEAKER) (test eeiy=908) 8.7 GM/DL 11.2-15.7 HEMATOCRIT (BEAKER) (test hgua=604) 27.8 % 34.1-44.9 MEAN CORPUSCULAR VOLUME (BEAKER) (test fipa=554) 93.3 fL 79.4-94.8 MEAN CORPUSCULAR HEMOGLOBIN (BEAKER) (test 29.2 pg 25.6-32.2 gpqf=448) MEAN CORPUSCULAR HEMOGLOBIN CONC (BEAKER) (test 31.3 GM/DL 32.2-35.5 eubs=676) RED CELL DISTRIBUTION WIDTH (BEAKER) (test 15.7 % 11.7-14.4 dnze=517) PLATELET COUNT (BEAKER) (test pvkd=646) 284 K/CU MM 150-450 MEAN PLATELET VOLUME (BEAKER) (test knmg=492) 11.8 fL 9.4-12.3 NUCLEATED RED BLOOD CELLS (BEAKER) (test 0 /100 WBC 0-0 iwxe=011) NEUTROPHILS RELATIVE PERCENT (BEAKER) (test 62 % ojpc=524) LYMPHOCYTES RELATIVE PERCENT (BEAKER) (test 18 % ylge=271) MONOCYTES RELATIVE PERCENT (BEAKER) (test 16 % jbjn=887) EOSINOPHILS RELATIVE PERCENT (BEAKER) (test 2 % dyxv=209) BASOPHILS RELATIVE PERCENT (BEAKER) (test 1 % vbur=781) NEUTROPHILS ABSOLUTE COUNT (BEAKER) (test 5.87 K/ L 1.56-6.13 rlgr=151) LYMPHOCYTES ABSOLUTE COUNT (BEAKER) (test 1.73 K/ L 1.18-3.74 ngqj=320) MONOCYTES ABSOLUTE COUNT (BEAKER) (test 1.50 K/ L 0.24-0.36 rbky=381) EOSINOPHILS ABSOLUTE COUNT (BEAKER) (test 0.23 K/ L 0.04-0.36 xkfi=910) BASOPHILS ABSOLUTE COUNT (BEAKER) (test 0.05 K/ L 0.01-0.08 eump=026) IMMATURE GRANULOCYTES-RELATIVE PERCENT (BEAKER) 2 % 0-1 (test xjlj=1554) BASIC METABOLIC [id number] 05:42:00 Test Item Value Reference Range Comments SODIUM (BEAKER) (test 133 meq/L 136-145 hjtf=413) POTASSIUM (BEAKER) (test 4.1 meq/L 3.5-5.1 jthu=278) CHLORIDE (BEAKER) (test 98 meq/L 98-107 gshx=834) CO2 (BEAKER) (test 23 meq/L 22-29 sqad=504) BLOOD UREA NITROGEN 37 mg/dL 7-21 (BEAKER) (test mtpu=411) CREATININE (BEAKER) (test 3.70 mg/dL 0.57-1.25 djez=201) GLUCOSE RANDOM (BEAKER) 202 mg/dL 70-105 (test izpb=692) CALCIUM (BEAKER) (test 8.9 mg/dL 8.4-10.2 pceo=734) EGFR (BEAKER) (test 12 mL/min/1.73 sq m ESTIMATED GFR IS NOT htbs=9788) ACCURATE CREATININE CLEARANCE IN PREDICTING GLOMERULAR FILTRATION RATE. ESTIMATED GFR IS NOT APPLICABLE FOR DIALYSIS PATIENTS. [id number] 05:35:00 Test Item Value Reference Range Comments MAGNESIUM (BEAKER) (test wtxh=731) 1.9 mg/dL 1.6-2.6 POCT-GLUCOSE [id number] 01:12:00 Test Item Value Reference Range Comments POC-GLUCOSE METER (BEAKER) 293 mg/dL 70-110 TESTED AT [address] (test knkx=9947) [place] [id number] POCT-GLUCOSE [id number] 01:12:00 Test Item Value Reference Range Comments POC-GLUCOSE METER (BEAKER) 327 mg/dL 70-110 TESTED AT [address] (test icjk=0456) [place] [id number] ANG, TUNNELED CATHETER [id number] 14:50:00Reason for exam:->need tdc/hdFINAL REPORT Tunneled dialysis catheter insertion , 05/24/2018. History: Renal failure. Modality: Sonography and fluoroscopy. Sedation: Versed 1 mg and fentanyl 50 mcg was given intravenously for conscious sedation. Vital signs were monitored throughout the procedure by a nurse, and remained stable. Physician intra-service time was 20 minutes. Door Machine Operator: Meenakshi. Transcriptionist: None. Approach: Right internal jugular vein Estimated [...] needle into the right atrium. A 4 Kyrgyz micropuncture sheath was placed. A subcutaneous tunnel was created in the right anterior chest wall by blunt dissection. A 19 cm 15.5 [place] Duraflow 2 catheter was brought through the [...] guidance and conscious sedation. Signed : Michael Arrietaeport Verified Date/Time: 05/25/2018 14:50:11 Reading Location: [address] Body Reading Room POCT-GLUCOSE [id number] 12:19: 00 Test Item Value Reference Range Comments POC-GLUCOSE METER (BEAKER) 197 mg/dL 70-[address] [facility] [address] [facility] (test nhjw=4085) [facility] [address] BASIC METABOLIC [id number] 06:48:00 Test Item Value Reference Range Comments SODIUM (BEAKER) (test 138 meq/L 136-145 rzhy=443) POTASSIUM (BEAKER) (test 3.9 meq/L 3.5-5.1 iour=992) CHLORIDE (BEAKER) (test 99 meq/L 98-107 ougt=963) CO2 (BEAKER) (test 30 meq/L 22-29 loku=156) BLOOD UREA NITROGEN 20 mg/dL 7-21 (BEAKER) (test tdni=747) CREATININE (BEAKER) (test 2.47 mg/dL 0.57-1.25 osbt=692) GLUCOSE RANDOM (BEAKER) 85 mg/dL 70-105 (test ykoa=568) CALCIUM (BEAKER) (test 9.3 mg/dL 8.4-10.2 ltuz=108) EGFR (BEAKER) (test 20 mL/min/1.73 sq m ESTIMATED GFR IS NOT adyp=1909) ACCURATE CREATININE CLEARANCE IN PREDICTING GLOMERULAR FILTRATION RATE. ESTIMATED GFR IS NOT APPLICABLE FOR DIALYSIS PATIENTS. [id number] 06:43:00 Test Item Value Reference Range Comments PHOSPHORUS (BEAKER) (test ujwv=500) 4.0 mg/dL 2.3-4.7 [id number] 06:43:00 Test Item Value Reference Range Comments MAGNESIUM (BEAKER) (test zilg=778) 2.0 mg/dL 1.6-2.6 POCT-GLUCOSE [id number] 06:36:00 Test Item Value Reference Range Comments POC-GLUCOSE METER (BEAKER) 84 mg/dL 70-[address] [facility] [address] (test rcur=4385) [facility] [address] CBC W/PLT COUNT & AUTO [id number] 06:12:00 Test Item Value Reference Range Comments WHITE BLOOD CELL COUNT (BEAKER) (test mihm=564) 9.9 K/ L 3.5-10.5 RED BLOOD CELL COUNT (BEAKER) (test yvuo=741) 3.30 M/ L 3.93-5.22 HEMOGLOBIN (BEAKER) (test pgcv=625) 9.6 GM/DL 11.2-15.7 HEMATOCRIT (BEAKER) (test ozyv=677) 30.8 % 34.1-44.9 MEAN CORPUSCULAR VOLUME (BEAKER) (test rguv=333) 93.3 fL 79.4-94.8 MEAN CORPUSCULAR HEMOGLOBIN (BEAKER) (test 29.1 pg 25.6-32.2 verw=401) MEAN CORPUSCULAR HEMOGLOBIN CONC (BEAKER) (test 31.2 GM/DL 32.2-35.5 lyli=428) RED CELL DISTRIBUTION WIDTH (BEAKER) (test 15.6 % 11.7-14.4 akdw=553) PLATELET COUNT (BEAKER) (test gaon=173) 287 K/CU MM 150-450 MEAN PLATELET VOLUME (BEAKER) (test rthw=101) 11.7 fL 9.4-12.3 NUCLEATED RED BLOOD CELLS (BEAKER) (test 0 /100 WBC 0-0 xjri=939) NEUTROPHILS RELATIVE PERCENT (BEAKER) (test 68 % hxfh=165) LYMPHOCYTES RELATIVE PERCENT (BEAKER) (test 12 % cuga=231) MONOCYTES RELATIVE PERCENT (BEAKER) (test 14 % oqbg=242) EOSINOPHILS RELATIVE PERCENT (BEAKER) (test 3 % xvyn=258) BASOPHILS RELATIVE PERCENT (BEAKER) (test 1 % fcfj=102) NEUTROPHILS ABSOLUTE COUNT (BEAKER) (test 6.79 K/ L 1.56-6.13 cvhb=348) LYMPHOCYTES ABSOLUTE COUNT (BEAKER) (test 1.23 K/ L 1.18-3.74 ipyt=865) MONOCYTES ABSOLUTE COUNT (BEAKER) (test 1.43 K/ L 0.24-0.36 ujio=785) EOSINOPHILS ABSOLUTE COUNT (BEAKER) (test 0.31 K/ L 0.04-0.36 mkiw=221) BASOPHILS ABSOLUTE COUNT (BEAKER) (test 0.05 K/ L 0.01-0.08 hfej=940) IMMATURE GRANULOCYTES-RELATIVE PERCENT (BEAKER) 1 % 0-1 (test kkpe=7319) POCT-GLUCOSE [id number] 23:53:00 Test Item Value Reference Range Comments POC-GLUCOSE METER (BEAKER) 88 mg/dL 70-110 TESTED AT [address] (test bnfb=2609) [facility] [address] POCT-GLUCOSE [id number] 17:24:00 Test Item Value Reference Range Comments POC-GLUCOSE METER (BEAKER) 125 mg/dL 70-110 TESTED AT [address] (test qokj=0488) [facility] [address] POCT-GLUCOSE [id number] 12:00:00 Test Item Value Reference Range Comments POC-GLUCOSE METER (BEAKER) 110 mg/dL 70-110 TESTED AT [address] (test zwvj=8495) [facility] [address] PROTHROMBIN [id number] 09:56:00 Test Item Value Reference Range Comments PROTIME (BEAKER) (test frdz=391) 14.5 seconds 11.7-14.7 INR (BEAKER) (test ahdp=355) 1.1 <=5.9 RECOMMENDED COUMADIN/WARFARIN INR THERAPY RANGESSTANDARD DOSE: 2.0 - 3.0 Includes: PROPHYLAXIS forvenous thrombosis, systemic embolization; TREATMENT for venous thrombosis and/or pulmonary embolus.HIGH RISK: Target INR is 2.5-3.5 for patients with mechanical heart valves.POCT-GLUCOSE [id number] 07:54:00 Test Item Value Reference Range Comments POC-GLUCOSE METER (BEAKER) 110 mg/dL 70-[address] [facility] [address] (test aucv=9647) [facility] [address] BASIC METABOLIC [id number] 05:57:00 Test Item Value Reference Range Comments SODIUM (BEAKER) (test 139 meq/L 136-145 pkwd=879) POTASSIUM (BEAKER) (test 3.5 meq/L 3.5-5.1 cgpb=856) CHLORIDE (BEAKER) (test 103 meq/L 98-107 zjaf=397) CO2 (BEAKER) (test 27 meq/L 22-29 tqcl=204) BLOOD UREA NITROGEN 26 mg/dL 7-21 (BEAKER) (test udep=464) CREATININE (BEAKER) (test 2.77 mg/dL 0.57-1.25 fdwn=098) GLUCOSE RANDOM (BEAKER) 65 mg/dL 70-105 (test cqua=113) CALCIUM (BEAKER) (test 9.1 mg/dL 8.4-10.2 tpwl=312) EGFR (BEAKER) (test 17 mL/min/1.73 sq m ESTIMATED GFR IS NOT ioou=2055) ACCURATE CREATININE CLEARANCE IN PREDICTING GLOMERULAR FILTRATION RATE. ESTIMATED GFR IS NOT APPLICABLE FOR DIALYSIS PATIENTS. [id number] 05:56:00 Test Item Value Reference Range Comments MAGNESIUM (BEAKER) (test flyc=734) 2.0 mg/dL 1.6-2.6 CBC W/PLT COUNT & AUTO [id number] 05:34:00 Test Item Value Reference Range Comments WHITE BLOOD CELL COUNT (BEAKER) (test wzrg=735) 9.8 K/ L 3.5-10.5 RED BLOOD CELL COUNT (BEAKER) (test dwog=004) 2.92 M/ L 3.93-5.22 HEMOGLOBIN (BEAKER) (test rtmt=056) 8.5 GM/DL 11.2-15.7 HEMATOCRIT (BEAKER) (test ebyh=682) 27.1 % 34.1-44.9 MEAN CORPUSCULAR VOLUME (BEAKER) (test dwyp=947) 92.8 fL 79.4-94.8 MEAN CORPUSCULAR HEMOGLOBIN (BEAKER) (test 29.1 pg 25.6-32.2 xyxd=063) MEAN CORPUSCULAR HEMOGLOBIN CONC (BEAKER) (test 31.4 GM/DL 32.2-35.5 pojh=129) RED CELL DISTRIBUTION WIDTH (BEAKER) (test 15.0 % 11.7-14.4 anqz=674) PLATELET COUNT (BEAKER) (test nuxt=847) 245 K/CU MM 150-450 MEAN PLATELET VOLUME (BEAKER) (test uylp=117) 11.3 fL 9.4-12.3 NUCLEATED RED BLOOD CELLS (BEAKER) (test 0 /100 WBC 0-0 rneq=942) NEUTROPHILS RELATIVE PERCENT (BEAKER) (test 59 % ycoj=961) LYMPHOCYTES RELATIVE PERCENT (BEAKER) (test 18 % ovle=925) MONOCYTES RELATIVE PERCENT (BEAKER) (test 15 % qghi=759) EOSINOPHILS RELATIVE PERCENT (BEAKER) (test 6 % lrsj=733) BASOPHILS RELATIVE PERCENT (BEAKER) (test 1 % qbxh=189) NEUTROPHILS ABSOLUTE COUNT (BEAKER) (test 5.73 K/ L 1.56-6.13 vtwt=461) LYMPHOCYTES ABSOLUTE COUNT (BEAKER) (test 1.72 K/ L 1.18-3.74 ogpl=774) MONOCYTES ABSOLUTE COUNT (BEAKER) (test 1.46 K/ L 0.24-0.36 ylzq=100) EOSINOPHILS ABSOLUTE COUNT (BEAKER) (test 0.55 K/ L 0.04-0.36 stcw=591) BASOPHILS ABSOLUTE COUNT (BEAKER) (test 0.07 K/ L 0.01-0.08 lzvz=496) IMMATURE GRANULOCYTES-RELATIVE PERCENT (BEAKER) 3 % 0-1 (test wdgl=7914) POCT-GLUCOSE [id number] 00:45:00 Test Item Value Reference Range Comments POC-GLUCOSE METER (BEAKER) 95 mg/dL 70-110 TESTED AT [address] (test xbvn=8040) [facility] [address] POCT-GLUCOSE [id number] 17:11:00 Test Item Value Reference Range Comments POC-GLUCOSE METER (BEAKER) 247 mg/dL 70-110 TESTED AT [address] (test qeqo=6897) [facility] [address] POCT-GLUCOSE [id number] 13:00:00 Test Item Value Reference Range Comments POC-GLUCOSE METER (BEAKER) 182 mg/dL 70-110 TESTED AT [address] (test mdtt=2631) [facility] [address] BASIC METABOLIC [id number] 06:26:00 Test Item Value Reference Range Comments SODIUM (BEAKER) (test 138 meq/L 136-145 gkzr=043) POTASSIUM (BEAKER) (test 3.6 meq/L 3.5-5.1 dbau=077) CHLORIDE (BEAKER) (test 101 meq/L 98-107 jrkp=437) CO2 (BEAKER) (test 29 meq/L 22-29 dadx=995) BLOOD UREA NITROGEN 16 mg/dL 7-21 (BEAKER) (test gpcc=802) CREATININE (BEAKER) (test 1.74 mg/dL 0.57-1.25 ffnv=933) GLUCOSE RANDOM (BEAKER) 146 mg/dL 70-105 (test xzfk=152) CALCIUM (BEAKER) (test 9.0 mg/dL 8.4-10.2 hrdw=695) EGFR (BEAKER) (test 29 mL/min/1.73 sq m ESTIMATED GFR IS NOT khai=5853) ACCURATE CREATININE CLEARANCE IN PREDICTING GLOMERULAR FILTRATION RATE. ESTIMATED GFR IS NOT APPLICABLE FOR DIALYSIS PATIENTS. [id number] 06:21:00 Test Item Value Reference Range Comments MAGNESIUM (BEAKER) (test lpgn=087) 2.0 mg/dL 1.6-2.6 CBC W/PLT COUNT & AUTO [id number] 05:54:00 Test Item Value Reference Range Comments WHITE BLOOD CELL COUNT (BEAKER) (test wdpy=730) 9.2 K/ L 3.5-10.5 RED BLOOD CELL COUNT (BEAKER) (test zack=171) 2.92 M/ L 3.93-5.22 HEMOGLOBIN (BEAKER) (test uqxr=715) 8.6 GM/DL 11.2-15.7 HEMATOCRIT (BEAKER) (test saxi=392) 27.0 % 34.1-44.9 MEAN CORPUSCULAR VOLUME (BEAKER) (test xmpm=927) 92.5 fL 79.4-94.8 MEAN CORPUSCULAR HEMOGLOBIN (BEAKER) (test 29.5 pg 25.6-32.2 buii=506) MEAN CORPUSCULAR HEMOGLOBIN CONC (BEAKER) (test 31.9 GM/DL 32.2-35.5 olkh=424) RED CELL DISTRIBUTION WIDTH (BEAKER) (test 14.9 % 11.7-14.4 elba=403) PLATELET COUNT (BEAKER) (test rxxv=860) 197 K/CU MM 150-450 MEAN PLATELET VOLUME (BEAKER) (test frii=068) 11.8 fL 9.4-12.3 NUCLEATED RED BLOOD CELLS (BEAKER) (test 0 /100 WBC 0-0 rdug=181) NEUTROPHILS RELATIVE PERCENT (BEAKER) (test 60 % zrna=259) LYMPHOCYTES RELATIVE PERCENT (BEAKER) (test 16 % edzl=401) MONOCYTES RELATIVE PERCENT (BEAKER) (test 13 % urig=573) EOSINOPHILS RELATIVE PERCENT (BEAKER) (test 7 % oxzc=772) BASOPHILS RELATIVE PERCENT (BEAKER) (test 1 % nggs=699) NEUTROPHILS ABSOLUTE COUNT (BEAKER) (test 5.47 K/ L 1.56-6.13 ymrj=149) LYMPHOCYTES ABSOLUTE COUNT (BEAKER) (test 1.45 K/ L 1.18-3.74 mekj=701) MONOCYTES ABSOLUTE COUNT (BEAKER) (test 1.19 K/ L 0.24-0.36 weow=663) EOSINOPHILS ABSOLUTE COUNT (BEAKER) (test 0.62 K/ L 0.04-0.36 aqye=221) BASOPHILS ABSOLUTE COUNT (BEAKER) (test 0.10 K/ L 0.01-0.08 brjg=561) IMMATURE GRANULOCYTES-RELATIVE PERCENT (BEAKER) 4 % 0-1 (test hzqf=8198) POCT-GLUCOSE [id number] 05:47:00 Test Item Value Reference Range Comments POC-GLUCOSE METER (BEAKER) 154 mg/dL 70-[address] [facility] [address] (test xteh=4650) [facility] [address] POCT-GLUCOSE [id number] 00:16:00 Test Item Value Reference Range Comments POC-GLUCOSE METER (BEAKER) 218 mg/dL 70-110 TESTED AT [address] (test gvne=8342) [facility] [address] RAD, CHEST, 1 VIEW, NON [id number] 19:44:00Reason for exam:->HD line placement Should this [...] Interval improvement of airspace disease. Signed:Clovis Fischer Verified Date/Time: 05/22/2018 19:44:26 Reading Location: [address] ConsultReading Room POCT-GLUCOSE [id number] 17:46:00 Test Item Value Reference Range Comments POC-GLUCOSE METER (BEAKER) 284 mg/dL 70-110 TESTED AT [address] (test yclo=8757) [place] [id number] SPUTUM CULTURE + GRAM [id number] 14:30:00 Test Item Value Reference Range Comments CULTURE (BEAKER) (test annj=5499) See comment GRAM STAIN RESULT (BEAKER) (test 2+ WBCs yolk=0645) GRAM STAIN RESULT (BEAKER) (test 0-5 epithelial cells kiza=233341) GRAM STAIN RESULT (BEAKER) (test <1+ gram negative rods aatz=560500) <1+ yeastNo normal respiratory lor presentPOCT-GLUCOSE [id number] 12: 16:00 Test Item Value Reference Range Comments POC-GLUCOSE METER (BEAKER) 302 mg/dL 70-110 TESTED AT [address] (test izvz=3963) [facility] [address] RAD, CHEST, 1 VIEW, NON [id number] 07:34:00Reason for exam:-> pneumoniaShould this be performed [...] SKINNEReport Verified Date/Time: 05/22/2018 07:34:31 Reading Location: [address] Neuro Reading Room BLOOD [id number] 07:01:00 Test Item Value Reference Range Comments CULTURE (BEAKER) (test xqog=5319) No growth in 5 days BLOOD [id number] 07:01:00 Test Item Value Reference Range Comments CULTURE (BEAKER) (test lvoz=3052) No growth in 5 days BASIC METABOLIC [id number] 06:19:00 Test Item Value Reference Range Comments SODIUM (BEAKER) (test 140 meq/L 136-145 zgao=956) POTASSIUM (BEAKER) (test 3.7 meq/L 3.5-5.1 nuuk=789) CHLORIDE (BEAKER) (test 101 meq/L 98-107 bqjx=956) CO2 (BEAKER) (test 29 meq/L 22-29 eyrn=616) BLOOD UREA NITROGEN 35 mg/dL 7-21 (BEAKER) (test exjm=011) CREATININE (BEAKER) (test 2.45 mg/dL 0.57-1.25 chyl=497) GLUCOSE RANDOM (BEAKER) 221 mg/dL 70-105 (test ymql=062) CALCIUM (BEAKER) (test 8.7 mg/dL 8.4-10.2 sibg=109) EGFR (BEAKER) (test 20 mL/min/1.73 sq m ESTIMATED GFR IS NOT phek=0410) ACCURATE CREATININE CLEARANCE IN PREDICTING GLOMERULAR FILTRATION RATE. ESTIMATED GFR IS NOT APPLICABLE FOR DIALYSIS PATIENTS. [id number] 06:17:00 Test Item Value Reference Range Comments PHOSPHORUS (BEAKER) (test jtsb=035) 2.5 mg/dL 2.3-4.7 [id number] 06:17:00 Test Item Value Reference Range Comments MAGNESIUM (BEAKER) (test aemv=122) 2.1 mg/dL 1.6-2.6 CBC W/PLT COUNT & AUTO [id number] 05:56:00 Test Item Value Reference Range Comments WHITE BLOOD CELL COUNT (BEAKER) (test vmxj=376) 7.2 K/ L 3.5-10.5 RED BLOOD CELL COUNT (BEAKER) (test wxaj=842) 2.66 M/ L 3.93-5.22 HEMOGLOBIN (BEAKER) (test sszi=908) 7.8 GM/DL 11.2-15.7 HEMATOCRIT (BEAKER) (test uhsn=237) 24.5 % 34.1-44.9 MEAN CORPUSCULAR VOLUME (BEAKER) (test jgmx=428) 92.1 fL 79.4-94.8 MEAN CORPUSCULAR HEMOGLOBIN (BEAKER) (test 29.3 pg 25.6-32.2 vxou=737) MEAN CORPUSCULAR HEMOGLOBIN CONC (BEAKER) (test 31.8 GM/DL 32.2-35.5 vwcy=338) RED CELL DISTRIBUTION WIDTH (BEAKER) (test 14.8 % 11.7-14.4 xjns=439) PLATELET COUNT (BEAKER) (test mutw=621) 164 K/CU MM 150-450 MEAN PLATELET VOLUME (BEAKER) (test cpxm=785) 12.0 fL 9.4-12.3 NUCLEATED RED BLOOD CELLS (BEAKER) (test 0 /100 WBC 0-0 psyl=891) NEUTROPHILS RELATIVE PERCENT (BEAKER) (test 60 % bzjq=846) LYMPHOCYTES RELATIVE PERCENT (BEAKER) (test 15 % fzrw=930) MONOCYTES RELATIVE PERCENT (BEAKER) (test 16 % fhfn=536) EOSINOPHILS RELATIVE PERCENT (BEAKER) (test 4 % ffex=958) BASOPHILS RELATIVE PERCENT (BEAKER) (test 1 % hlrp=986) NEUTROPHILS ABSOLUTE COUNT (BEAKER) (test 4.36 K/ L 1.56-6.13 nzpj=249) LYMPHOCYTES ABSOLUTE COUNT (BEAKER) (test 1.10 K/ L 1.18-3.74 bxtd=191) MONOCYTES ABSOLUTE COUNT (BEAKER) (test 1.16 K/ L 0.24-0.36 xiaf=675) EOSINOPHILS ABSOLUTE COUNT (BEAKER) (test 0.28 K/ L 0.04-0.36 yiww=585) BASOPHILS ABSOLUTE COUNT (BEAKER) (test 0.05 K/ L 0.01-0.08 tktu=847) IMMATURE GRANULOCYTES-RELATIVE PERCENT (BEAKER) 4 % 0-1 (test inzo=9577) POCT-GLUCOSE [id number] 17:46:00 Test Item Value Reference Range Comments POC-GLUCOSE METER (BEAKER) 147 mg/dL 70-[address] [facility] [address] (test zkvr=3942) [facility] [address] RESPIRATORY PANEL [id number] 14:16:00 Test Item Value Reference Range Comments HUMAN METAPNEUMOVIRUS (BEAKER) (test Not detected Not detected, Equivocal wnhp=5380) RHINOVIRUS (BEAKER) (test jqml=8085) Not detected Not detected, Equivocal INFLUENZA A (BEAKER) (test ocsj=5499) Not detected Not detected, Equivocal INFLUENZA A (NO SUBTYPE) (test Not detected, Equivocal otnd=4060) INFLUENZA A SUBTYPE H1 (BEAKER) (test Not detected, Equivocal pxsb=3048) INFLUENZA A SUBTYPE H3 (BEAKER) (test Not detected, Equivocal gove=7730) INFLUENZA A SUBTYPE H1-2009 (BEAKER) Not detected, Equivocal (test mcrx=1615) INFLUENZA B (BEAKER) (test xazf=4842) Not detected Not detected, Equivocal RESPIRATORY SYNCYTIAL VIRUS (BEAKER) Not detected Not detected, Equivocal (test iqsf=2199) PARAINFLUENZA VIRUS 1 (BEAKER) (test Not detected Not detected, Equivocal pttg=0584) PARAINFLUENZA VIRUS 2 (BEAKER) (test Not detected Not detected, Equivocal hwjj=8100) PARAINFLUENZA VIRUS 3 (BEAKER) (test Not detected Not detected, Equivocal oojc=9583) PARAINFLUENZA VIRUS 4 (BEAKER) (test Not detected Not detected, Equivocal dwni=5088) ADENOVIRUS (BEAKER) (test caxc=5095) Not detected Not detected, Equivocal CORONAVIRUS 229E (BEAKER) (test Not detected Not detected, Equivocal ehsz=5761) CORONAVIRUS HKU1 (BEAKER) (test Not detected Not detected, Equivocal gysu=9360) CORONAVIRUS NL63 (BEAKER) (test Not detected Not detected, Equivocal eone=1122) CORONAVIRUS OC43 (BEAKER) (test Not detected Not detected, Equivocal rmji=7690) BORDETELLA PERTUSSIS (BEAKER) (test Not detected Not detected, Equivocal dwzn=7596) CHLAMYDOPHILA PNEUMONIAE (BEAKER) (test Not detected Not detected, Equivocal rgxu=8244) MYCOPLASMA PNEUMONIAE (BEAKER) (test Not detected Not detected, Equivocal gcmf=3723) Other viruses and bacteria not targeted by this PCR panel cannot be excluded; therefore clinical correlation and follow up of serology, culture results, and other molecular studies is required. The results are not intended to be used as the sole means for clinical diagnosis or patient management decisions. This sample was tested at the [facility] Molecular Diagnostics Laboratory using the [employer] Respiratory Panel. It is FDA cleared and has been verified and approved by the [facility] for clinical use on nasal swab specimens. It is not FDA-cleared for use on bronchial wash/lavage samples. However, for this sample type, validation was performed and test characteristics were determined and approved, by [facility] laboratory for clinical use under the Clinical Laboratory Improvement Amendments (CLIA) of 1988 requirements. Therefore, FDA clearance isnot required. This laboratory is CLIA-certified and [employer] ([employer])-accredited to perform high complexity testing.POCT-GLUCOSE [id number] 13:35:00 Test Item Value Reference Range Comments POC-GLUCOSE METER (AKER) 228 mg/dL 70-[address] [facility] [address] (test axyu=7252) [facility] [address] BLOOD GAS, [id number] 10:42:00 Test Item Value Reference Range Comments PH ARTERIAL (BEAKER) (test fesu=984) 7.41 7.35-7.45 PCO2 ARTERIAL (BEAKER) (test fkzd=401) 42 mmHg 35-45 PO2 ARTERIAL (BEAKER) (test umfq=944) 167 mmHg 80-90 O2 SATURATION ARTERIAL (BEAKER) (test fnmn=851) 99.1 % 96.0-97.0 HCO3 ARTERIAL (BEAKER) (test murj=018) 26 mmol/L 21-29 BASE EXCESS ARTERIAL (BEAKER) (test dqpg=017) 1.0 mmol/L -2.0-3.0 PATIENT TEMPERATURE (BEAKER) (test swxv=9637) 37.5 C FIO2 (BEAKER) (test ftvg=2307) 35.0 % URINE [id number] 09:06:00 Test Item Value Reference Range Comments CULTURE (BEAKER) (test >100,000 col/mL Madie glabrata fgnx=9644) POCT-GLUCOSE [id number] 05:53:00 Test Item Value Reference Range Comments POC-GLUCOSE METER (BEAKER) 184 mg/dL 70-[address] [facility] [address] [place] [address] (test nqme=9880) [facility] [address] RAD, CHEST, 1 VIEW, NON [id number] 05:50:00Reason for exam:-> pneumoniaShould this be performed at the bedside?->YesFINAL REPORT RAD, CHEST, 1 VIEW, NON DEPT INDICATION: pneumonia COMPARISON: Prior day's exam FINDINGS: Portable frontal view of the chest. IMPRESSION: Support Lines: Stable. Lungs and pleura: Unchanged airspace and pleural opacities. No pneumothorax.Heart and mediastinum: Stable contours. Additional findings: None. Signed: Marina Hale Verified Date/Time: 2018 05:50:08 Reading Location: [address] Transitional Reading Room BASIC METABOLIC [id number] 05:13:00 Test Item Value Reference Range Comments SODIUM (BEAKER) (test 132 meq/L 136-145 agoy=807) POTASSIUM (BEAKER) (test 4.3 meq/L 3.5-5.1 ndud=938) CHLORIDE (BEAKER) (test 97 meq/L 98-107 ssrs=536) CO2 (BEAKER) (test 25 meq/L 22-29 idxl=278) BLOOD UREA NITROGEN 69 mg/dL 7-21 (BEAKER) (test bnoc=326) CREATININE (BEAKER) (test 3.74 mg/dL 0.57-1.25 xdmg=528) GLUCOSE RANDOM (BEAKER) 147 mg/dL 70-105 (test xozd=630) CALCIUM (BEAKER) (test 8.8 mg/dL 8.4-10.2 bpff=287) EGFR (BEAKER) (test 12 mL/min/1.73 sq m ESTIMATED GFR IS NOT ywng=5832) ACCURATE CREATININE CLEARANCE IN PREDICTING GLOMERULAR FILTRATION RATE. ESTIMATED GFR IS NOT APPLICABLE FOR DIALYSIS PATIENTS. [id number] 05:12:00 Test Item Value Reference Range Comments MAGNESIUM (BEAKER) (test fvvl=987) 2.5 mg/dL 1.6-2.6 CBC W/PLT COUNT & AUTO [id number] 05:04:00 Test Item Value Reference Range Comments WHITE BLOOD CELL COUNT (BEAKER) (test vani=024) 6.6 K/ L 3.5-10.5 RED BLOOD CELL COUNT (BEAKER) (test vpqj=709) 2.62 M/ L 3.93-5.22 HEMOGLOBIN (BEAKER) (test reos=917) 7.6 GM/DL 11.2-15.7 HEMATOCRIT (BEAKER) (test rzno=843) 24.2 % 34.1-44.9 MEAN CORPUSCULAR VOLUME (BEAKER) (test flau=360) 92.4 fL 79.4-94.8 MEAN CORPUSCULAR HEMOGLOBIN (BEAKER) (test 29.0 pg 25.6-32.2 hvgd=494) MEAN CORPUSCULAR HEMOGLOBIN CONC (BEAKER) (test 31.4 GM/DL 32.2-35.5 qqjs=647) RED CELL DISTRIBUTION WIDTH (BEAKER) (test 15.0 % 11.7-14.4 hegs=015) PLATELET COUNT (BEAKER) (test yvsw=762) 151 K/CU MM 150-450 MEAN PLATELET VOLUME (BEAKER) (test hlgq=909) 11.9 fL 9.4-12.3 NUCLEATED RED BLOOD CELLS (BEAKER) (test 0 /100 WBC 0-0 lges=566) NEUTROPHILS RELATIVE PERCENT (BEAKER) (test 56 % qrka=857) LYMPHOCYTES RELATIVE PERCENT (BEAKER) (test 22 % ogwp=861) MONOCYTES RELATIVE PERCENT (BEAKER) (test 16 % xhzk=725) EOSINOPHILS RELATIVE PERCENT (BEAKER) (test 5 % tlsv=157) BASOPHILS RELATIVE PERCENT (BEAKER) (test 1 % tqwc=361) NEUTROPHILS ABSOLUTE COUNT (BEAKER) (test 3.68 K/ L 1.56-6.13 pxmp=507) LYMPHOCYTES ABSOLUTE COUNT (BEAKER) (test 1.42 K/ L 1.18-3.74 gfxe=497) MONOCYTES ABSOLUTE COUNT (BEAKER) (test 1.08 K/ L 0.24-0.36 waiq=608) EOSINOPHILS ABSOLUTE COUNT (BEAKER) (test 0.35 K/ L 0.04-0.36 asbe=410) BASOPHILS ABSOLUTE COUNT (BEAKER) (test 0.03 K/ L 0.01-0.08 qubi=009) IMMATURE GRANULOCYTES-RELATIVE PERCENT (BEAKER) 1 % 0-1 (test zlye=2412) POCT-GLUCOSE [id number] 01:14:00 Test Item Value Reference Range Comments POC-GLUCOSE METER (BEAKER) 215 mg/dL 70-110 TESTED AT [address] (test qlwm=5578) [place] [id number] POCT-GLUCOSE [id number] 17:46:00 Test Item Value Reference Range Comments POC-GLUCOSE METER (BEAKER) 170 mg/dL 70-110 TESTED AT [address] (test mizp=8756) [place] [id number] POCT-GLUCOSE [id number] 12:14:00 Test Item Value Reference Range Comments POC-GLUCOSE METER (BEAKER) 300 mg/dL 70-110 TESTED AT [address] (test rmef=7605) [place] [id number] POCT-GLUCOSE [id number] 06:46:00 Test Item Value Reference Range Comments POC-GLUCOSE METER (BEAKER) 178 mg/dL 70-110 TESTED AT [address] (test egln=1556) [facility] [id number] RAD, CHEST, 1 VIEW, NON [id number] 06:23:00Reason for exam:-> pneumoniaShould this be performed [...] mediastinum: Stable contours. Additional findings: None. Signed: Marina Hale Verified Date/Time: 2018 06:23:41 Reading Location: [facility] C013T Transitional Reading Room [id number] 05:14:00 Test Item Value Reference Range Comments PHOSPHORUS (BEAKER) (test dppz=714) 4.5 mg/dL 2.3-4.7 [id number] 05:14:00 Test Item Value Reference Range Comments MAGNESIUM (BEAKER) (test rwyp=924) 2.3 mg/dL 1.6-2.6 LACTATE DEHYDROGENASE (LDH)2018-05-20 05:14:00 Test Item Value Reference Range Comments LACTATE DEHYDROGENASE (BEAKER) (test tkee=087) 169 U/L 125-220 BASIC METABOLIC [id number] 05:14:00 Test Item Value Reference Range Comments SODIUM (BEAKER) (test 135 meq/L 136-145 qnkc=448) POTASSIUM (BEAKER) (test 4.1 meq/L 3.5-5.1 fgof=455) CHLORIDE (BEAKER) (test 99 meq/L 98-107 xbtl=528) CO2 (BEAKER) (test 27 meq/L 22-29 gkge=878) BLOOD UREA NITROGEN 44 mg/dL 7-21 (BEAKER) (test bdve=733) CREATININE (BEAKER) (test 2.88 mg/dL 0.57-1.25 dktp=607) GLUCOSE RANDOM (BEAKER) 144 mg/dL 70-105 (test andc=458) CALCIUM (BEAKER) (test 8.7 mg/dL 8.4-10.2 lilr=180) EGFR (BEAKER) (test 16 mL/min/1.73 sq m ESTIMATED GFR IS NOT ikmu=9887) ACCURATE CREATININE CLEARANCE IN PREDICTING GLOMERULAR FILTRATION RATE. ESTIMATED GFR IS NOT APPLICABLE FOR DIALYSIS PATIENTS. CBC W/PLT COUNT & AUTO [id number] 05:03:00 Test Item Value Reference Range Comments WHITE BLOOD CELL COUNT (BEAKER) (test jmgd=490) 6.1 K/ L 3.5-10.5 RED BLOOD CELL COUNT (BEAKER) (test rbzn=275) 2.63 M/ L 3.93-5.22 HEMOGLOBIN (BEAKER) (test ebae=742) 7.8 GM/DL 11.2-15.7 HEMATOCRIT (BEAKER) (test sauw=957) 24.8 % 34.1-44.9 MEAN CORPUSCULAR VOLUME (BEAKER) (test woih=724) 94.3 fL 79.4-94.8 MEAN CORPUSCULAR HEMOGLOBIN (BEAKER) (test 29.7 pg 25.6-32.2 xpkx=643) MEAN CORPUSCULAR HEMOGLOBIN CONC (BEAKER) (test 31.5 GM/DL 32.2-35.5 fnlx=431) RED CELL DISTRIBUTION WIDTH (BEAKER) (test 15.2 % 11.7-14.4 doed=077) PLATELET COUNT (BEAKER) (test ymhz=295) 136 K/CU MM 150-450 MEAN PLATELET VOLUME (BEAKER) (test qlng=024) 11.8 fL 9.4-12.3 NUCLEATED RED BLOOD CELLS (BEAKER) (test 0 /100 WBC 0-0 vpcq=432) NEUTROPHILS RELATIVE PERCENT (BEAKER) (test 60 % xmlm=766) LYMPHOCYTES RELATIVE PERCENT (BEAKER) (test 21 % ngod=636) MONOCYTES RELATIVE PERCENT (BEAKER) (test 11 % mwvz=014) EOSINOPHILS RELATIVE PERCENT (BEAKER) (test 7 % jsgv=570) BASOPHILS RELATIVE PERCENT (BEAKER) (test 1 % sudp=069) NEUTROPHILS ABSOLUTE COUNT (BEAKER) (test 3.67 K/ L 1.56-6.13 vnjm=812) LYMPHOCYTES ABSOLUTE COUNT (BEAKER) (test 1.27 K/ L 1.18-3.74 orvv=559) MONOCYTES ABSOLUTE COUNT (BEAKER) (test 0.67 K/ L 0.24-0.36 ayhy=148) EOSINOPHILS ABSOLUTE COUNT (BEAKER) (test 0.44 K/ L 0.04-0.36 psej=325) BASOPHILS ABSOLUTE COUNT (BEAKER) (test 0.04 K/ L 0.01-0.08 wuyp=585) IMMATURE GRANULOCYTES-RELATIVE PERCENT (BEAKER) 1 % 0-1 (test cffs=1814) POCT-GLUCOSE [id number] 23:07:00 Test Item Value Reference Range Comments POC-GLUCOSE METER (BEAKER) 135 mg/dL 70-[address] [facility] [address] [facility] (test xldu=5193) [facility] [address] MRSA [id number] 18:13:00 Test Item Value Reference Range Comments CULTURE (BEAKER) (test kcth=7638) No MRSA isolated BRONCHIAL CULTURE + GRAM [id number] 18:05:00 Test Item Value Reference Range Comments CULTURE (BEAKER) (test dqhh=8958) See comment GRAM STAIN RESULT (BEAKER) (test 1+ White blood cells seen pyhz=3097) GRAM STAIN RESULT (BEAKER) (test No organisms seen fxzm=85127) <1+ yeastPOCT-GLUCOSE [id number] 18:00:00 Test Item Value Reference Range Comments POC-GLUCOSE METER (BEAKER) 197 mg/dL 70-110 TESTED AT [place] [id number] [facility] (test zysw=8125) [place] [address] CT, CHEST WITH IV CONTRAST- PE TEST [id number] 12:30:00FINAL REPORT CT Chest PE Protocol dated [...] Fischer MDReport Verified Date/Time: 12:30:51 Reading Location: [facility] B1 [id number] Ortho Consult Reading Room Electronicallysigned by: CLOVIS FISCHER M.D. on 05/19/2018 12:30 PMPOCT-GLUCOSE [id number] 11:55:00 Test Item Value Reference Range Comments POC-GLUCOSE METER (BEAKER) 89 mg/dL 70-[address] [facility] [address] [facility] (test kyrn=9244) [facility] [address] [id number] 10:04:00 Test Item Value Reference Range Comments PROCALCITONIN (BEAKER) (test ksjj=4429) 1.60 ng/mL <0.05 SEPSIS RISK (ng/mL)Low: 0.05-0.50Intermediate: 0.51-2.00High: & gt;=2.01BASIC METABOLIC [id number] 06:30:00 Test Item Value Reference Range Comments SODIUM (BEAKER) (test 135 meq/L 136-145 fopg=030) POTASSIUM (BEAKER) (test 3.8 meq/L 3.5-5.1 ossq=987) CHLORIDE (BEAKER) (test 98 meq/L 98-107 etxl=805) CO2 (BEAKER) (test 28 meq/L 22-29 cknj=214) BLOOD UREA NITROGEN 23 mg/dL 7-21 (BEAKER) (test odrn=909) CREATININE (BEAKER) (test 1.95 mg/dL 0.57-1.25 jpyt=393) GLUCOSE RANDOM (BEAKER) 180 mg/dL 70-105 (test aczz=363) CALCIUM (BEAKER) (test 8.6 mg/dL 8.4-10.2 xwhg=371) EGFR (BEAKER) (test 26 mL/min/1.73 sq m ESTIMATED GFR IS NOT swky=4901) ACCURATE CREATININE CLEARANCE IN PREDICTING GLOMERULAR FILTRATION RATE. ESTIMATED GFR IS NOT APPLICABLE FOR DIALYSIS PATIENTS. [id number] 06:28:00 Test Item Value Reference Range Comments PHOSPHORUS (BEAKER) (test rgxv=647) 3.2 mg/dL 2.3-4.7 [id number] 06:28:00 Test Item Value Reference Range Comments MAGNESIUM (BEAKER) (test lnjp=884) 2.1 mg/dL 1.6-2.6 B-TYPE NATRIURETIC FACTOR (BNP)2018-05-19 06:25:00 Test Item Value Reference Range Comments B-TYPE NATRIURETIC PEPTIDE (BEAKER) (test 227 pg/mL 0-100 osmv=090) POCT-GLUCOSE [id number] 06:17:00 Test Item Value Reference Range Comments POC-GLUCOSE METER (BEAKER) 222 mg/dL 70-[address] [facility] [address] [facility] (test zptg=8467) [place] [address] CBC W/PLT COUNT & AUTO [id number] 05:32:00 Test Item Value Reference Range Comments WHITE BLOOD CELL COUNT (BEAKER) (test uwje=647) 5.8 K/ L 3.5-10.5 RED BLOOD CELL COUNT (BEAKER) (test jppq=736) 2.51 M/ L 3.93-5.22 HEMOGLOBIN (BEAKER) (test suto=798) 7.4 GM/DL 11.2-15.7 HEMATOCRIT (BEAKER) (test wlxr=621) 23.7 % 34.1-44.9 MEAN CORPUSCULAR VOLUME (BEAKER) (test brbl=069) 94.4 fL 79.4-94.8 MEAN CORPUSCULAR HEMOGLOBIN (BEAKER) (test 29.5 pg 25.6-32.2 zahx=065) MEAN CORPUSCULAR HEMOGLOBIN CONC (BEAKER) (test 31.2 GM/DL 32.2-35.5 egxz=967) RED CELL DISTRIBUTION WIDTH (BEAKER) (test 15.8 % 11.7-14.4 rclb=203) PLATELET COUNT (BEAKER) (test saqd=338) 135 K/CU MM 150-450 MEAN PLATELET VOLUME (BEAKER) (test yaoj=813) 11.7 fL 9.4-12.3 NUCLEATED RED BLOOD CELLS (BEAKER) (test 0 /100 WBC 0-0 nopk=914) NEUTROPHILS RELATIVE PERCENT (BEAKER) (test 72 % xogx=276) LYMPHOCYTES RELATIVE PERCENT (BEAKER) (test 14 % fbqz=935) MONOCYTES RELATIVE PERCENT (BEAKER) (test 8 % vyuv=015) EOSINOPHILS RELATIVE PERCENT (BEAKER) (test 5 % riuk=195) BASOPHILS RELATIVE PERCENT (BEAKER) (test 1 % gbaz=666) NEUTROPHILS ABSOLUTE COUNT (BEAKER) (test 4.18 K/ L 1.56-6.13 qoag=527) LYMPHOCYTES ABSOLUTE COUNT (BEAKER) (test 0.83 K/ L 1.18-3.74 htvn=604) MONOCYTES ABSOLUTE COUNT (BEAKER) (test 0.45 K/ L 0.24-0.36 kbqa=497) EOSINOPHILS ABSOLUTE COUNT (BEAKER) (test 0.27 K/ L 0.04-0.36 bneo=584) BASOPHILS ABSOLUTE COUNT (BEAKER) (test 0.03 K/ L 0.01-0.08 rmqn=453) IMMATURE GRANULOCYTES-RELATIVE PERCENT (BEAKER) 1 % 0-1 (test ksqq=5678) POCT-GLUCOSE [id number] 23:43:00 Test Item Value Reference Range Comments POC-GLUCOSE METER (BEAKER) 172 mg/dL 70-110 TESTED AT [address] (test bzfi=0453) [place] [address] POCT-GLUCOSE [id number] 18:29:00 Test Item Value Reference Range Comments POC-GLUCOSE METER (BEAKER) 149 mg/dL 70-110 TESTED AT [address] (test uzxk=8630) [place] [address] HEMOGLOBIN AND [id number] 16:32:00 Test Item Value Reference Range Comments HEMOGLOBIN (BEAKER) (test yiii=762) 8.2 GM/DL 11.2-15.7 HEMATOCRIT (BEAKER) (test tarb=219) 26.4 % 34.1-44.9 BODY FLUID CULTURE + GRAM [id number] 13:39:00 Test Item Value Reference Range Comments CULTURE (BEAKER) (test mavb=7522) No growth GRAM STAIN RESULT (BEAKER) (test 1+ WBCs rgza=3975) GRAM STAIN RESULT (BEAKER) (test No organisms seen iexl=08405) POCT-GLUCOSE [id number] 11:45:00 Test Item Value Reference Range Comments POC-GLUCOSE METER (BEAKER) 79 mg/dL 70-110 TESTED AT [address] (test tdlr=1851) [place] [address] HEMOGLOBIN AND [id number] 09:18:00 Test Item Value Reference Range Comments HEMOGLOBIN (BEAKER) (test eqny=753) 7.3 GM/DL 11.2-15.7 HEMATOCRIT (BEAKER) (test wzxm=570) 24.4 % 34.1-44.9 RAD, CHEST, 1 VIEW, NON [id number] 08:48:00Reason for exam:->acute pulmonary insufficiencyFINAL REPORT Follow up Chest radiograph Clinical History: Acute pulmonary insufficiencyComparison: MayViews: One BELARUSIAN Chest x-ray:The cardiac and mediastinal silhouettes are [...] Verified Date/Time: 05/18/2018 08:48:08 Reading Location : [facility] Radiology Reading Room POCT-GLUCOSE [id number] 06:15:00 Test Item Value Reference Range Comments POC-GLUCOSE METER (BEAKER) 107 mg/dL 70-[address] [facility] [address] [facility] (test xmkk=5866) [facility] [address] BASIC METABOLIC [id number] 04:27:00 Test Item Value Reference Range Comments SODIUM (BEAKER) (test 133 meq/L 136-145 sjed=340) POTASSIUM (BEAKER) (test 4.7 meq/L 3.5-5.1 gsya=052) CHLORIDE (BEAKER) (test 99 meq/L 98-107 ohzy=893) CO2 (BEAKER) (test 24 meq/L 22-29 betz=894) BLOOD UREA NITROGEN 28 mg/dL 7-21 (BEAKER) (test yfjr=805) CREATININE (BEAKER) (test 2.80 mg/dL 0.57-1.25 qyvj=773) GLUCOSE RANDOM (BEAKER) 101 mg/dL 70-105 (test fpuz=928) CALCIUM (BEAKER) (test 8.6 mg/dL 8.4-10.2 laxq=011) EGFR (BEAKER) (test 17 mL/min/1.73 sq m ESTIMATED GFR IS NOT bcbv=9874) ACCURATE CREATININE CLEARANCE IN PREDICTING GLOMERULAR FILTRATION RATE. ESTIMATED GFR IS NOT APPLICABLE FOR DIALYSIS PATIENTS. [id number] 04:26:00 Test Item Value Reference Range Comments PHOSPHORUS (BEAKER) (test vqyv=302) 4.4 mg/dL 2.3-4.7 [id number] 04:26:00 Test Item Value Reference Range Comments MAGNESIUM (BEAKER) (test pwvx=520) 2.7 mg/dL 1.6-2.6 HEMOGLOBIN AND [id number] 04:06:00 Test Item Value Reference Range Comments HEMOGLOBIN (BEAKER) (test swap=590) 7.5 GM/DL 11.2-15.7 HEMATOCRIT (BEAKER) (test nvsc=461) 24.6 % 34.1-44.9 CBC W/PLT COUNT & AUTO [id number] 04:06:00 Test Item Value Reference Range Comments WHITE BLOOD CELL COUNT (BEAKER) (test rctv=982) 8.4 K/ L 3.5-10.5 RED BLOOD CELL COUNT (BEAKER) (test nrpb=302) 2.59 M/ L 3.93-5.22 HEMOGLOBIN (BEAKER) (test vjjm=006) 7.5 GM/DL 11.2-15.7 HEMATOCRIT (BEAKER) (test cvul=254) 24.6 % 34.1-44.9 MEAN CORPUSCULAR VOLUME (BEAKER) (test qbmg=595) 95.0 fL 79.4-94.8 MEAN CORPUSCULAR HEMOGLOBIN (BEAKER) (test 29.0 pg 25.6-32.2 scxd=188) MEAN CORPUSCULAR HEMOGLOBIN CONC (BEAKER) (test 30.5 GM/DL 32.2-35.5 anmz=243) RED CELL DISTRIBUTION WIDTH (BEAKER) (test 16.1 % 11.7-14.4 xywk=851) PLATELET COUNT (BEAKER) (test ogds=498) 146 K/CU MM 150-450 MEAN PLATELET VOLUME (BEAKER) (test watm=374) 11.9 fL 9.4-12.3 NUCLEATED RED BLOOD CELLS (BEAKER) (test 0 /100 WBC 0-0 jtnd=414) NEUTROPHILS RELATIVE PERCENT (BEAKER) (test 75 % hnnb=540) LYMPHOCYTES RELATIVE PERCENT (BEAKER) (test 12 % iycb=159) MONOCYTES RELATIVE PERCENT (BEAKER) (test 7 % ftoj=503) EOSINOPHILS RELATIVE PERCENT (BEAKER) (test 5 % uyrg=886) BASOPHILS RELATIVE PERCENT (BEAKER) (test 1 % pmuk=016) NEUTROPHILS ABSOLUTE COUNT (BEAKER) (test 6.33 K/ L 1.56-6.13 ttii=176) LYMPHOCYTES ABSOLUTE COUNT (BEAKER) (test 0.99 K/ L 1.18-3.74 dfbs=005) MONOCYTES ABSOLUTE COUNT (BEAKER) (test 0.60 K/ L 0.24-0.36 fryw=130) EOSINOPHILS ABSOLUTE COUNT (BEAKER) (test 0.38 K/ L 0.04-0.36 kwqp=071) BASOPHILS ABSOLUTE COUNT (BEAKER) (test 0.06 K/ L 0.01-0.08 lkbp=650) IMMATURE GRANULOCYTES-RELATIVE PERCENT (BEAKER) 0 % 0-1 (test idcy=5240) HEMOGLOBIN AND [id number] 00:12:00 Test Item Value Reference Range Comments HEMOGLOBIN (BEAKER) (test iklr=225) 8.0 GM/DL 11.2-15.7 HEMATOCRIT (BEAKER) (test ctcd=213) 25.6 % 34.1-44.9 POCT-GLUCOSE [id number] 00:12:00 Test Item Value Reference Range Comments POC-GLUCOSE METER (BEAKER) 121 mg/dL 70-110 TESTED AT [address] (test dsti=6750) [facility] [address] POCT-GLUCOSE [id number] 21:56:00 Test Item Value Reference Range Comments POC-GLUCOSE METER (BEAKER) 69 mg/dL 70-110 TESTED AT [address] (test kgkz=4511) [facility] [address] POCT-GLUCOSE [id number] 19:36:00 Test Item Value Reference Range Comments POC-GLUCOSE METER (BEAKER) 71 mg/dL 70-110 TESTED AT [address] (test kdfn=4442) [facility] [address] POCT-GLUCOSE [id number] 18:23:00 Test Item Value Reference Range Comments POC-GLUCOSE METER (BEAKER) 71 mg/dL 70-110 TESTED AT [address] (test miqt=6325) [place] [id number] HEMOGLOBIN AND [id number] 17:18:00 Test Item Value Reference Range Comments HEMOGLOBIN (BEAKER) (test nplf=693) 7.5 GM/DL 11.2-15.7 HEMATOCRIT (BEAKER) (test hzwx=060) 24.6 % 34.1-44.9 LEGIONELLA ANTIGEN, [id number] 12:23:00 Test Item Value Reference Range Comments L. PNEUMOPHILA SEROGP 1 Negative - see Negative for L. UR AG (AKER) (test comment pneumophila serogroup 1 yfwd=4499) antigen, suggesting no recent or current infection with this serogroup. Legionellosis cannot be ruled out since other serogroups and species may cause disease. STREP PNEUMONIAE [id number] 12:23:00 Test Item Value Reference Range Comments STREP PNEUMONIAE ANTIGEN Presumptive negative for Presumptive negative for (AKER) (test pneumococcal pneumonia - pneumococcal pneumonia - cvro=1823) see comment see commen Presumptive negative for pneumococcal pneumonia, suggesting no current or recent pneumococcal infection. Infection due to S. pneumoniae cannot be ruled out since the antigen present in the sample may be below the detection limit of the test.POCT-GLUCOSE [id number] 12:09:00 Test Item Value Reference Range Comments POC-GLUCOSE METER (BEAKER) 141 mg/dL 70-110 TESTED AT [address] (test wqrc=0085) [place] [id number] POCT-GLUCOSE [id number] 09:25:00 Test Item Value Reference Range Comments POC-GLUCOSE METER (BEAKER) 142 mg/dL 70-110 TESTED AT [address] (test freb=7582) [facility] [address] RAD, ABDOMEN/KUB, 1 VIEW [id number] 08:21:00Reason for exam:->ileus, NG tube positionShould this [...] definite evidence of obstruction or ileus. Signed: Karen Moralesort Verified Date/Time: 05/17/2018 08:21:14 Reading Location: [facility] Radiology Reading Room RAD, CHEST, 1 VIEW, NON [id number] 08:14:00Reason for exam:->ET tube position, pneumonia, pulmonary [...] nasogastric tube. Improvement in pulmonary opacity. Signed: Karen Moraleseport Verified Date/Time: 05/17/2018 08:14: 14 Reading Location: [facility] Radiology Reading Room POCT-GLUCOSE [id number] 05:59:00 Test Item Value Reference Range Comments POC-GLUCOSE METER (BEAKER) 159 mg/dL 70-[address] [facility] [address] [facility] (test bclx=6431) [facility] [address] CBC (HEMOGRAM ONLY)2018-05-17 05:41:00 Test Item Value Reference Range Comments WHITE BLOOD CELL COUNT (BEAKER) (test lcgn=072) 8.1 K/ L 3.5-10.5 RED BLOOD CELL COUNT (BEAKER) (test raos=913) 2.27 M/ L 3.93-5.22 HEMOGLOBIN (BEAKER) (test shjh=795) 6.6 GM/DL 11.2-15.7 HEMATOCRIT (BEAKER) (test ybqa=749) 21.4 % 34.1-44.9 MEAN CORPUSCULAR VOLUME (BEAKER) (test elgv=872) 94.3 fL 79.4-94.8 MEAN CORPUSCULAR HEMOGLOBIN (BEAKER) (test 29.1 pg 25.6-32.2 dcyl=342) MEAN CORPUSCULAR HEMOGLOBIN CONC (BEAKER) (test 30.8 GM/DL 32.2-35.5 mivy=353) RED CELL DISTRIBUTION WIDTH (BEAKER) (test 15.9 % 11.7-14.4 kouj=202) PLATELET COUNT (BEAKER) (test qfuc=621) 153 K/CU MM 150-450 MEAN PLATELET VOLUME (BEAKER) (test skco=962) 12.2 fL 9.4-12.3 NUCLEATED RED BLOOD CELLS (BEAKER) (test 0 /100 WBC 0-0 gqxh=812) COMPREHENSIVE METABOLIC [id number] 04:15:00 Test Item Value Reference Range Comments TOTAL PROTEIN (BEAKER) 5.0 gm/dL 6.0-8.3 (test hzob=797) ALBUMIN (BEAKER) (test 2.2 g/dL 3.5-5.0 qopm=9680) ALKALINE PHOSPHATASE 184 U/L 40-150 (BEAKER) (test hyjl=367) BILIRUBIN TOTAL (BEAKER) 0.4 mg/dL 0.2-1.2 (test yrlu=253) SODIUM (BEAKER) (test 136 meq/L 136-145 cafh=290) POTASSIUM (BEAKER) (test 3.3 meq/L 3.5-5.1 taxd=476) CHLORIDE (BEAKER) (test 105 meq/L 98-107 wbji=246) CO2 (BEAKER) (test 23 meq/L 22-29 lvix=719) BLOOD UREA NITROGEN 14 mg/dL 7-21 (BEAKER) (test qunz=012) CREATININE (BEAKER) (test 1.55 mg/dL 0.57-1.25 nntd=925) GLUCOSE RANDOM (BEAKER) 145 mg/dL 70-105 (test tlzj=348) CALCIUM (BEAKER) (test 7.2 mg/dL 8.4-10.2 ftzj=408) AST (SGOT) (BEAKER) (test 12 U/L 5-34 cadt=816) ALT (SGPT) (BEAKER) (test 14 U/L 6-55 bquz=965) EGFR (BEAKER) (test 33 mL/min/1.73 sq m ESTIMATED GFR IS NOT ncps=1365) ACCURATE CREATININE CLEARANCE IN PREDICTING GLOMERULAR FILTRATION RATE. ESTIMATED GFR IS NOT APPLICABLE FOR DIALYSIS PATIENTS. Specimen slightly [id number] 04:12:00 Test Item Value Reference Range Comments MAGNESIUM (BEAKER) (test mnve=502) 1.4 mg/dL 1.6-2.6 CBC W/PLT COUNT & AUTO [id number] 03:55:00 Test Item Value Reference Range Comments WHITE BLOOD CELL COUNT (BEAKER) (test vgcu=122) 7.9 K/ L 3.5-10.5 RED BLOOD CELL COUNT (BEAKER) (test vyji=357) 2.17 M/ L 3.93-5.22 HEMOGLOBIN (BEAKER) (test udpz=655) 6.3 GM/DL 11.2-15.7 HEMATOCRIT (BEAKER) (test ixzh=283) 20.4 % 34.1-44.9 MEAN CORPUSCULAR VOLUME (BEAKER) (test uvys=530) 94.0 fL 79.4-94.8 MEAN CORPUSCULAR HEMOGLOBIN (BEAKER) (test 29.0 pg 25.6-32.2 unrz=914) MEAN CORPUSCULAR HEMOGLOBIN CONC (BEAKER) (test 30.9 GM/DL 32.2-35.5 vsxj=348) RED CELL DISTRIBUTION WIDTH (BEAKER) (test 15.6 % 11.7-14.4 zglc=138) PLATELET COUNT (BEAKER) (test lgek=515) 131 K/CU MM 150-450 MEAN PLATELET VOLUME (BEAKER) (test xtem=024) 11.6 fL 9.4-12.3 NUCLEATED RED BLOOD CELLS (BEAKER) (test 0 /100 WBC 0-0 xnmr=913) NEUTROPHILS RELATIVE PERCENT (BEAKER) (test 82 % stic=525) LYMPHOCYTES RELATIVE PERCENT (BEAKER) (test 11 % qcid=347) MONOCYTES RELATIVE PERCENT (BEAKER) (test 6 % jlkg=841) EOSINOPHILS RELATIVE PERCENT (BEAKER) (test 0 % eiti=674) BASOPHILS RELATIVE PERCENT (BEAKER) (test 0 % mskx=592) NEUTROPHILS ABSOLUTE COUNT (BEAKER) (test 6.49 K/ L 1.56-6.13 acbw=208) LYMPHOCYTES ABSOLUTE COUNT (BEAKER) (test 0.87 K/ L 1.18-3.74 etwr=973) MONOCYTES ABSOLUTE COUNT (BEAKER) (test 0.46 K/ L 0.24-0.36 xwcg=770) EOSINOPHILS ABSOLUTE COUNT (BEAKER) (test 0.02 K/ L 0.04-0.36 wlwl=345) BASOPHILS ABSOLUTE COUNT (BEAKER) (test 0.03 K/ L 0.01-0.08 etrc=075) IMMATURE GRANULOCYTES-RELATIVE PERCENT (BEAKER) 0 % 0-1 (test elwu=4863) BODY FLUID CELL COUNT WITH [id number] 02:05:00 Test Item Value Reference Range Comments APPEARANCE FLUID (BEAKER) (test sfzs=975) Clear Clear COLOR FLUID (BEAKER) (test wral=883) Colorless Colorless, Straw RBC FLUID (BEAKER) (test cqbd=536) 1000 /cu mm <=1 ADJUSTED WBC FLUID (BEAKER) (test xswh=3881) 102 /cu mm <=5 LINING CELLS (BEAKER) (test rkmf=0201) 31 /cu mm <=1 NEUTROPHILS FLUID (BEAKER) (test gdsd=5602) 45 % LYMPHS FLUID (BEAKER) (test busd=290) 13 % MONO/MACROPHAGE FLUID (BEAKER) (test syae=814) 39 % EOSINOPHILS FLUID (BEAKER) (test tkqz=417) 3 % BASO FLUID (BEAKER) (test smfs=856) 0 % CONTAINER BODY FLUID (BEAKER) (test bdfs=1267) EDTA Tube POCT-GLUCOSE [id number] 00:09:00 Test Item Value Reference Range Comments POC-GLUCOSE METER (BEAKER) 152 mg/dL 70-[address] [facility] [address] [facility] (test mvuw=1613) [facility] [address] BLOOD GAS, [id number] 20:56:00 Test Item Value Reference Range Comments PH ARTERIAL (BEAKER) (test rvnp=586) 7.49 7.35-7.45 PCO2 ARTERIAL (BEAKER) (test bpri=098) 39 mmHg 35-45 PO2 ARTERIAL (BEAKER) (test widj=741) 70 mmHg 80-90 O2 SATURATION ARTERIAL (BEAKER) (test ntff=136) 94.9 % 96.0-97.0 HCO3 ARTERIAL (BEAKER) (test rfhu=723) 29 mmol/L 21-29 BASE EXCESS ARTERIAL (BEAKER) (test khbt=572) 5.2 mmol/L -2.0-3.0 PATIENT TEMPERATURE (BEAKER) (test rgtd=1473) 37.5 C FIO2 (BEAKER) (test bcij=1132) 70.0 % POCT-GLUCOSE [id number] 18:37:00 Test Item Value Reference Range Comments POC-GLUCOSE METER (BEAKER) 128 mg/dL 70-110 TESTED AT [address] (test qmjc=9073) [facility] [address] POCT-GLUCOSE [id number] 16:09:00 Test Item Value Reference Range Comments POC-GLUCOSE METER (BEAKER) 121 mg/dL 70-110 TESTED AT [address] (test glix=1189) [facility] [address] POCT-GLUCOSE [id number] 12:21:00 Test Item Value Reference Range Comments POC-GLUCOSE METER (BEAKER) 200 mg/dL 70-110 TESTED AT [address] (test nykf=0675) [facility] [address] RAD, CHEST, 1 VIEW, NON [id number] 12:06:00Reason for exam:->acute hypoxic respiratory failureShould this [...] edema is considered less likely. Signed: Cande Moyerort Verified Date/Time: 05/16/2018 12:06:49 Reading Location: [facility] Radiology Reading Room POCT-GLUCOSE [id number] 10:45:00 Test Item Value Reference Range Comments POC-GLUCOSE METER (BEAKER) 230 mg/dL 70-110 TESTED AT [address] (test wrnr=9751) [facility] [address] BLOOD GAS, [id number] 10:32:00 Test Item Value Reference Range Comments PH ARTERIAL (BEAKER) (test neuu=921) 7.44 7.35-7.45 PCO2 ARTERIAL (BEAKER) (test ecrw=926) 41 mmHg 35-45 PO2 ARTERIAL (BEAKER) (test vxog=924) 48 mmHg 80-90 O2 SATURATION ARTERIAL (BEAKER) (test bchw=788) 85.0 % 96.0-97.0 HCO3 ARTERIAL (BEAKER) (test nmxi=309) 27 mmol/L 21-29 BASE EXCESS ARTERIAL (BEAKER) (test jxhm=332) 2.2 mmol/L -2.0-3.0 PATIENT TEMPERATURE (BEAKER) (test fthd=5098) 37.0 C FIO2 (BEAKER) (test idsm=0085) 100.0 % POCT-GLUCOSE [id number] 09:00:00 Test Item Value Reference Range Comments POC-GLUCOSE METER (BEAKER) 195 mg/dL 70-110 TESTED AT [address] (test tvxx=9588) [place] [id number] COMPREHENSIVE METABOLIC [id number] 04:53:00 Test Item Value Reference Range Comments TOTAL PROTEIN (BEAKER) 6.1 gm/dL 6.0-8.3 (test hdrr=101) ALBUMIN (BEAKER) (test 2.7 g/dL 3.5-5.0 zalu=5405) ALKALINE PHOSPHATASE 249 U/L 40-150 (BEAKER) (test mijs=832) BILIRUBIN TOTAL (BEAKER) 0.4 mg/dL 0.2-1.2 (test ckjz=620) SODIUM (BEAKER) (test 133 meq/L 136-145 ivxa=261) POTASSIUM (BEAKER) (test 4.0 meq/L 3.5-5.1 dutt=978) CHLORIDE (BEAKER) (test 98 meq/L 98-107 iwck=081) CO2 (BEAKER) (test 26 meq/L 22-29 fwbn=564) BLOOD UREA NITROGEN 29 mg/dL 7-21 (BEAKER) (test eftt=961) CREATININE (BEAKER) (test 2.62 mg/dL 0.57-1.25 hayf=521) GLUCOSE RANDOM (BEAKER) 157 mg/dL 70-105 (test cbwh=809) CALCIUM (BEAKER) (test 8.5 mg/dL 8.4-10.2 wnds=687) AST (SGOT) (BEAKER) (test 21 U/L 5-34 ljsp=233) ALT (SGPT) (BEAKER) (test 27 U/L 6-55 pymz=442) EGFR (BEAKER) (test 18 mL/min/1.73 sq m ESTIMATED GFR IS NOT dydd=2633) ACCURATE CREATININE CLEARANCE IN PREDICTING GLOMERULAR FILTRATION RATE. ESTIMATED GFR IS NOT APPLICABLE FOR DIALYSIS PATIENTS. [id number] 04:51:00 Test Item Value Reference Range Comments PHOSPHORUS (BEAKER) (test fohf=873) 4.4 mg/dL 2.3-4.7 [id number] 04:51:00 Test Item Value Reference Range Comments MAGNESIUM (BEAKER) (test ekma=808) 1.8 mg/dL 1.6-2.6 CALCIUM, [id number] 04:33:00 Test Item Value Reference Range Comments CALCIUM IONIZED (BEAKER) (test niob=120) 1.13 mmol/L 1.12-1.27 PH, BLOOD (BEAKER) (test yseq=0098) 7.45 POCT-GLUCOSE [id number] 04:16:00 Test Item Value Reference Range Comments POC-GLUCOSE METER (BEAKER) 185 mg/dL 70-110 TESTED AT [address] (test lhyv=8424) [facility] [address] POCT-GLUCOSE [id number] 21:16:00 Test Item Value Reference Range Comments POC-GLUCOSE METER (BEAKER) 166 mg/dL 70-110 TESTED AT [address] (test wedy=4460) [facility] [address] POCT-GLUCOSE [id number] 18:06:00 Test Item Value Reference Range Comments POC-GLUCOSE METER (BEAKER) 193 mg/dL 70-110 TESTED AT [address] (test biht=5104) [facility] [address] PH, BODY [id number] 14:59:00 Test Item Value Reference Range Comments PH, BODY FLUID (BEAKER) (test jkrn=3927) 7.75 POCT-GLUCOSE [id number] 14:54:00 Test Item Value Reference Range Comments POC-GLUCOSE METER (BEAKER) 226 mg/dL 70-[address] [facility] [address] [facility] (test upfe=0863) [facility] [address] BODY FLUID CELL COUNT WITH [id number] 14:41:00 Test Item Value Reference Range Comments APPEARANCE FLUID (BEAKER) (test pdww=656) Cloudy Clear COLOR FLUID (BEAKER) (test hthg=721) Ola Colorless, Straw RBC FLUID (BEAKER) (test aepj=245) 3000 /cu mm <=1 ADJUSTED WBC FLUID (BEAKER) (test zreq=0565) 205 /cu mm <=5 LINING CELLS (BEAKER) (test ntrv=2546) 2 /cu mm <=1 NEUTROPHILS FLUID (BEAKER) (test gwth=5218) 17 % LYMPHS FLUID (BEAKER) (test hvpk=163) 52 % MONO/MACROPHAGE FLUID (BEAKER) (test jzry=335) 31 % EOSINOPHILS FLUID (BEAKER) (test tatv=864) 0 % BASO FLUID (BEAKER) (test pnuy=756) 0 % CONTAINER BODY FLUID (BEAKER) (test zzcc=9709) EDTA Tube LACTATE DEHYDROGENASE (LDH), BODY [id number] 13:26:00 Test Item Value Reference Range Comments LACTATE DEHYDROGENASE FLUID (BEAKER) < U/L Light's criteria identifies (test olsb=323) effusions if one or more are pre Absence of reference range indicates that normals have not been defined.Assay performance has not been validated for this type of specimen.PROTEIN, BODY [id number] 13:26:00 Test Item Value Reference Range Comments PROTEIN FLUID (BEAKER) (test 2.3 g/dL Light's criteria identifies kuhj=142) effusions if one or more are pre Absence of reference range indicates that normals have not been defined.Assay performance has not been validated for this type of specimen.RAD, CHEST, 1 VIEW , NON [id number] 13:09:00Reason for exam:->post right thoracentesis Should this [...] MDReport Verified Date/Time: 05/15/2018 13:09:02 Reading Location: [facility] Radiology Reading Room RAD, CHEST, 1 VIEW, NON [id number] 11:51:00Reason for exam:->increased work of breathing/hypoxiaShould [...] [place] Verified Date/Time: 05/15/2018 11:51:05 Reading Location: [facility] Radiology Reading Room Electronically signed by: DICK DALLAS M.D. on 2018 11:51 AMPOCT-LACTIC ACID, [id number] 11:19:00 Test Item Value Reference Range Comments POC-LACTIC ACID, ARTERIAL 0.9 mmol/L 0.4-1.3 TESTED AT [address] ([facility]) (test etsd=9668) [facility] [address] POCT-BLOOD GASES, [id number] 11:19:00 Test Item Value Reference Range Comments TEMP, CELSIUS-POC (BEAKER) 37.0 (test nliw=2985) FIO2-POC (BEAKER) (test TESTED AT [address] bwvk=3461) [place] [address] PH, ARTERIAL-POC (BEAKER) 7.377 7.350-7.450 (test yhlz=4146) PCO2, ARTERIAL-POC (BEAKER) 47.3 mm Hg 35.0-45.0 (test txvm=5212) PO2, ARTERIAL-POC (BEAKER) 62.0 mm Hg 80.0-90.0 (test yxle=6201) SO2, ARTERIAL-POC (BEAKER) 90.0 % 96.0-97.0 (test gchw=2873) HCO3, ARTERIAL-POC (BEAKER) 27.8 meq/L 21.0-29.0 (test ughy=5390) BASE EXCESS, ARTERIAL-POC 3.0 meq/L -2.0-3.0 (BEAKER) (test nycr=8822) [id number] 11:19:00 Test Item Value Reference Range Comments POC-SODIUM (BEAKER) (test 133 meq/L 135-148 TESTED AT [address] flfo=8965) [place] [address] [id number] 11:19:00 Test Item Value Reference Range Comments POC-POTASSIUM (BEAKER) (test 4.0 meq/L 3.6-5.5 TESTED AT [address] ckbv=3748) [place] [address] [id number] 11:19:00 Test Item Value Reference Range Comments POC-GLUCOSE (BEAKER) (test 213 mg/dL 70-110 TESTED AT [address] yxqa=0521) [place] [address] POCT-CALCIUM [id number] 11:19:00 Test Item Value Reference Range Comments POC-CALCIUM IONIZED (BEAKER) 1.14 mmol/L 1.12-1.27 TESTED AT [address] (test bizu=8804) [place] [address] [id number] 11:19:00 Test Item Value Reference Range Comments POC-HEMATOCRIT (BEAKER) (test 26 % 36-45 TESTED AT [address] wwjd=8806) [place] [address] [id number] 11:19:00 Test Item Value Reference Range Comments POC-HEMOGLOBIN (BEAKER) 8.8 g/dL 12.0-15.0 TESTED AT [address] (test dvtl=7899) [facility] [address]ZNXAOI AT [address] [address] POCT-GLUCOSE [id number] 07:33:00 Test Item Value Reference Range Comments POC-GLUCOSE METER (BEAKER) 125 mg/dL 70-110 TESTED AT [address] (test zdtt=7902) [facility] [address] POCT-GLUCOSE [id number] 05:43:00 Test Item Value Reference Range Comments POC-GLUCOSE METER (BEAKER) 89 mg/dL 70-110 TESTED AT [address] (test gicm=1179) [facility] [address] POCT-GLUCOSE [id number] 04:37:00 Test Item Value Reference Range Comments POC-GLUCOSE METER (BEAKER) 41 mg/dL 70-110 TESTED AT [address] (test zhtt=9004) [facility] [address] COMPREHENSIVE METABOLIC [id number] 04:28:00 Test Item Value Reference Range Comments TOTAL PROTEIN (BEAKER) 6.3 gm/dL 6.0-8.3 (test jlru=947) ALBUMIN (BEAKER) (test 2.9 g/dL 3.5-5.0 yynt=8347) ALKALINE PHOSPHATASE 239 U/L 40-150 (BEAKER) (test oqoi=117) BILIRUBIN TOTAL (BEAKER) 0.3 mg/dL 0.2-1.2 (test xczz=633) SODIUM (BEAKER) (test 135 meq/L 136-145 umbk=549) POTASSIUM (BEAKER) (test 3.9 meq/L 3.5-5.1 prgs=776) CHLORIDE (BEAKER) (test 100 meq/L 98-107 vgse=127) CO2 (BEAKER) (test 26 meq/L 22-29 vlnk=456) BLOOD UREA NITROGEN 21 mg/dL 7-21 (BEAKER) (test sfpy=469) CREATININE (BEAKER) (test 2.02 mg/dL 0.57-1.25 hcno=064) GLUCOSE RANDOM (BEAKER) 40 mg/dL 70-105 (test uuyk=935) CALCIUM (BEAKER) (test 8.5 mg/dL 8.4-10.2 ujjs=733) AST (SGOT) (BEAKER) (test 23 U/L 5-34 tpjf=553) ALT (SGPT) (BEAKER) (test 26 U/L 6-55 hyhh=995) EGFR (BEAKER) (test 25 mL/min/1.73 sq m ESTIMATED GFR IS NOT jonq=4208) ACCURATE CREATININE CLEARANCE IN PREDICTING GLOMERULAR FILTRATION RATE. ESTIMATED GFR IS NOT APPLICABLE FOR DIALYSIS PATIENTS. [id number] 04:20:00 Test Item Value Reference Range Comments MAGNESIUM (BEAKER) (test tvvs=546) 1.9 mg/dL 1.6-2.6 CBC W/PLT COUNT & AUTO [id number] 04:04:00 Test Item Value Reference Range Comments WHITE BLOOD CELL COUNT (BEAKER) (test alfc=010) 7.6 K/ L 3.5-10.5 RED BLOOD CELL COUNT (BEAKER) (test oima=856) 2.46 M/ L 3.93-5.22 HEMOGLOBIN (BEAKER) (test edvk=155) 7.2 GM/DL 11.2-15.7 HEMATOCRIT (BEAKER) (test rgqa=042) 23.4 % 34.1-44.9 MEAN CORPUSCULAR VOLUME (BEAKER) (test lflg=651) 95.1 fL 79.4-94.8 MEAN CORPUSCULAR HEMOGLOBIN (BEAKER) (test 29.3 pg 25.6-32.2 zfnj=526) MEAN CORPUSCULAR HEMOGLOBIN CONC (BEAKER) (test 30.8 GM/DL 32.2-35.5 wbvh=382) RED CELL DISTRIBUTION WIDTH (BEAKER) (test 15.9 % 11.7-14.4 jmkf=074) PLATELET COUNT (BEAKER) (test ztsv=886) 155 K/CU MM 150-450 MEAN PLATELET VOLUME (BEAKER) (test mjlf=898) 12.5 fL 9.4-12.3 NUCLEATED RED BLOOD CELLS (BEAKER) (test 0 /100 WBC 0-0 fxne=726) NEUTROPHILS RELATIVE PERCENT (BEAKER) (test 77 % vxte=863) LYMPHOCYTES RELATIVE PERCENT (BEAKER) (test 13 % ucnz=040) MONOCYTES RELATIVE PERCENT (BEAKER) (test 8 % xvxc=057) EOSINOPHILS RELATIVE PERCENT (BEAKER) (test 1 % emqf=449) BASOPHILS RELATIVE PERCENT (BEAKER) (test 1 % zfrd=109) NEUTROPHILS ABSOLUTE COUNT (BEAKER) (test 5.81 K/ L 1.56-6.13 kudq=879) LYMPHOCYTES ABSOLUTE COUNT (BEAKER) (test 0.96 K/ L 1.18-3.74 dsmc=226) MONOCYTES ABSOLUTE COUNT (BEAKER) (test 0.63 K/ L 0.24-0.36 uirb=172) EOSINOPHILS ABSOLUTE COUNT (BEAKER) (test 0.11 K/ L 0.04-0.36 jivl=783) BASOPHILS ABSOLUTE COUNT (BEAKER) (test 0.04 K/ L 0.01-0.08 ljhg=457) IMMATURE GRANULOCYTES-RELATIVE PERCENT (BEAKER) 1 % 0-1 (test yeca=0151) POCT-GLUCOSE [id number] 17:58:00 Test Item Value Reference Range Comments POC-GLUCOSE METER (BEAKER) 170 mg/dL 70-110 TESTED AT [address] (test pcql=7185) [facility] [address] POCT-GLUCOSE [id number] 12:31:00 Test Item Value Reference Range Comments POC-GLUCOSE METER (BEAKER) 124 mg/dL 70-110 TESTED AT [address] (test crwf=9028) [facility] [address] PROTHROMBIN [id number] 10:38:00 Test Item Value Reference Range Comments PROTIME (BEAKER) (test ejyk=271) 14.4 seconds 11.7-14.7 INR (BEAKER) (test cwpd=123) 1.1 <=5.9 RECOMMENDED COUMADIN/WARFARIN INR THERAPY RANGESSTANDARD DOSE: 2.0 - 3.0 Includes: PROPHYLAXIS forvenous thrombosis, systemic embolization; TREATMENT for venous thrombosis and/or pulmonary embolus.HIGH RISK: Target INR is 2.5-3.5 for patients with mechanical heart valves.B-TYPE NATRIURETIC FACTOR (BNP)2018-05 05:28:00 Test Item Value Reference Range Comments B-TYPE NATRIURETIC PEPTIDE (BEAKER) (test 336 pg/mL 0-100 bofq=328) [id number] 05:12:00 Test Item Value Reference Range Comments PHOSPHORUS (BEAKER) (test mraf=385) 4.9 mg/dL 2.3-4.7 [id number] 05:12:00 Test Item Value Reference Range Comments MAGNESIUM (BEAKER) (test vreq=420) 1.5 mg/dL 1.6-2.6 COMPREHENSIVE METABOLIC [id number] 05:12:00 Test Item Value Reference Range Comments TOTAL PROTEIN (BEAKER) 6.4 gm/dL 6.0-8.3 (test qphc=815) ALBUMIN (BEAKER) (test 2.8 g/dL 3.5-5.0 mvlp=1030) ALKALINE PHOSPHATASE 221 U/L 40-150 (BEAKER) (test tlfv=268) BILIRUBIN TOTAL (BEAKER) 0.3 mg/dL 0.2-1.2 (test oxmm=492) SODIUM (BEAKER) (test 130 meq/L 136-145 hxfg=596) POTASSIUM (BEAKER) (test 4.3 meq/L 3.5-5.1 jagv=393) CHLORIDE (BEAKER) (test 96 meq/L 98-107 bnud=451) CO2 (BEAKER) (test 25 meq/L 22-29 xhoj=105) BLOOD UREA NITROGEN 35 mg/dL 7-21 (BEAKER) (test zjiu=783) CREATININE (BEAKER) (test 3.26 mg/dL 0.57-1.25 ftkw=201) GLUCOSE RANDOM (BEAKER) 99 mg/dL 70-105 (test tajz=789) CALCIUM (BEAKER) (test 7.6 mg/dL 8.4-10.2 umus=020) AST (SGOT) (BEAKER) (test 20 U/L 5-34 nigr=544) ALT (SGPT) (BEAKER) (test 22 U/L 6-55 wdpb=643) EGFR (BEAKER) (test 14 mL/min/1.73 sq m ESTIMATED GFR IS NOT rmeq=0066) ACCURATE CREATININE CLEARANCE IN PREDICTING GLOMERULAR FILTRATION RATE. ESTIMATED GFR IS NOT APPLICABLE FOR DIALYSIS PATIENTS. CBC W/PLT COUNT & AUTO [id number] 04:57:00 Test Item Value Reference Range Comments WHITE BLOOD CELL COUNT (BEAKER) (test ndjc=796) 9.5 K/ L 3.5-10.5 RED BLOOD CELL COUNT (BEAKER) (test vvsg=839) 2.63 M/ L 3.93-5.22 HEMOGLOBIN (BEAKER) (test xpaq=429) 7.5 GM/DL 11.2-15.7 HEMATOCRIT (BEAKER) (test umnf=633) 24.9 % 34.1-44.9 MEAN CORPUSCULAR VOLUME (BEAKER) (test gvds=089) 94.7 fL 79.4-94.8 MEAN CORPUSCULAR HEMOGLOBIN (BEAKER) (test 28.5 pg 25.6-32.2 zcvq=245) MEAN CORPUSCULAR HEMOGLOBIN CONC (BEAKER) (test 30.1 GM/DL 32.2-35.5 jwyz=108) RED CELL DISTRIBUTION WIDTH (BEAKER) (test 15.9 % 11.7-14.4 xrbs=628) PLATELET COUNT (BEAKER) (test unql=359) 164 K/CU MM 150-450 MEAN PLATELET VOLUME (BEAKER) (test gqjc=173) 12.5 fL 9.4-12.3 NUCLEATED RED BLOOD CELLS (BEAKER) (test 0 /100 WBC 0-0 qzuy=573) NEUTROPHILS RELATIVE PERCENT (BEAKER) (test 76 % qhrp=019) LYMPHOCYTES RELATIVE PERCENT (BEAKER) (test 11 % piuh=032) MONOCYTES RELATIVE PERCENT (BEAKER) (test 8 % uypy=234) EOSINOPHILS RELATIVE PERCENT (BEAKER) (test 4 % ksbb=973) BASOPHILS RELATIVE PERCENT (BEAKER) (test 1 % wbmo=646) NEUTROPHILS ABSOLUTE COUNT (BEAKER) (test 7.28 K/ L 1.56-6.13 egpm=967) LYMPHOCYTES ABSOLUTE COUNT (BEAKER) (test 1.07 K/ L 1.18-3.74 oyzh=644) MONOCYTES ABSOLUTE COUNT (BEAKER) (test 0.74 K/ L 0.24-0.36 dhyn=378) EOSINOPHILS ABSOLUTE COUNT (BEAKER) (test 0.35 K/ L 0.04-0.36 lroc=883) BASOPHILS ABSOLUTE COUNT (BEAKER) (test 0.05 K/ L 0.01-0.08 nrcj=124) IMMATURE GRANULOCYTES-RELATIVE PERCENT (BEAKER) 1 % 0-1 (test zdpu=3620) POCT-GLUCOSE [id number] 21:56:00 Test Item Value Reference Range Comments POC-GLUCOSE METER (BEAKER) 109 mg/dL 70-[address] [facility] [address] [facility] (test tjlq=5547) [facility] [address] POCT-GLUCOSE [id number] 17:52:00 Test Item Value Reference Range Comments POC-GLUCOSE METER (BEAKER) 122 mg/dL 70-110 TESTED AT [address] (test hhcj=3211) [facility] [address] RAD, CHEST, 1 VIEW, NON [id number] 15:32:00Reason for exam:-> hypoxiaShould this be performed at the bedside?->YesFINAL REPORT TECHNIQUE: Single view of the chest. COMPARISON: 05/11/2018 at 2:32 PM FINDINGS: Extensive bilateral interstitial and airspace opacities are stable. There are bilateral moderate pleural effusions. No gross pneumothorax.No gross new lung parenchymal changes. Supportlines and tubes are stable. IMPRESSION: 1. No significant interval change. Signed: Geovani Cristina Verified Date/Time: 05/13/2018 15:32:33 Reading Location: [address] Reading Room POCT-GLUCOSE [id number] 11:50:00 Test Item Value Reference Range Comments POC-GLUCOSE METER (BEAKER) 189 mg/dL 70-110 TESTED AT [address] (test phpu=5887) [facility] [address] POCT-GLUCOSE [id number] 08:03:00 Test Item Value Reference Range Comments POC-GLUCOSE METER (BEAKER) 226 mg/dL 70-110 TESTED AT [address] (test wuqd=7829) [place] [id number] 04:23:00 Test Item Value Reference Range Comments PHOSPHORUS (BEAKER) (test pyco=496) 3.8 mg/dL 2.3-4.7 [id number] 04:23:00 Test Item Value Reference Range Comments MAGNESIUM (BEAKER) (test rkrk=665) 1.7 mg/dL 1.6-2.6 COMPREHENSIVE METABOLIC [id number] 04:23:00 Test Item Value Reference Range Comments TOTAL PROTEIN (BEAKER) 6.0 gm/dL 6.0-8.3 (test qtpb=069) ALBUMIN (BEAKER) (test 2.7 g/dL 3.5-5.0 gemz=7232) ALKALINE PHOSPHATASE 213 U/L 40-150 (BEAKER) (test njos=203) BILIRUBIN TOTAL (BEAKER) 0.3 mg/dL 0.2-1.2 (test utqi=803) SODIUM (BEAKER) (test 134 meq/L 136-145 mycx=769) POTASSIUM (BEAKER) (test 4.1 meq/L 3.5-5.1 bnyr=756) CHLORIDE (BEAKER) (test 99 meq/L 98-107 xiuw=326) CO2 (BEAKER) (test 26 meq/L 22-29 roaa=564) BLOOD UREA NITROGEN 27 mg/dL 7-21 (BEAKER) (test ijhu=931) CREATININE (BEAKER) (test 2.71 mg/dL 0.57-1.25 qhtt=926) GLUCOSE RANDOM (BEAKER) 129 mg/dL 70-105 (test cosd=879) CALCIUM (BEAKER) (test 8.2 mg/dL 8.4-10.2 jmmr=464) AST (SGOT) (BEAKER) (test 23 U/L 5-34 ltwv=823) ALT (SGPT) (BEAKER) (test 27 U/L 6-55 ycjl=023) EGFR (BEAKER) (test 18 mL/min/1.73 sq m ESTIMATED GFR IS NOT zqbk=0859) ACCURATE CREATININE CLEARANCE IN PREDICTING GLOMERULAR FILTRATION RATE. ESTIMATED GFR IS NOT APPLICABLE FOR DIALYSIS PATIENTS. CBC W/PLT COUNT & AUTO [id number] 04:17:00 Test Item Value Reference Range Comments WHITE BLOOD CELL COUNT (BEAKER) (test vrkc=257) 8.4 K/ L 3.5-10.5 RED BLOOD CELL COUNT (BEAKER) (test fkfp=942) 2.47 M/ L 3.93-5.22 HEMOGLOBIN (BEAKER) (test ojme=706) 7.2 GM/DL 11.2-15.7 HEMATOCRIT (BEAKER) (test rmqo=931) 23.5 % 34.1-44.9 MEAN CORPUSCULAR VOLUME (BEAKER) (test ljyo=429) 95.1 fL 79.4-94.8 MEAN CORPUSCULAR HEMOGLOBIN (BEAKER) (test 29.1 pg 25.6-32.2 easo=239) MEAN CORPUSCULAR HEMOGLOBIN CONC (BEAKER) (test 30.6 GM/DL 32.2-35.5 rzao=664) RED CELL DISTRIBUTION WIDTH (BEAKER) (test 16.0 % 11.7-14.4 fbdr=618) PLATELET COUNT (BEAKER) (test shky=044) 144 K/CU MM 150-450 MEAN PLATELET VOLUME (BEAKER) (test lwam=820) 12.6 fL 9.4-12.3 NUCLEATED RED BLOOD CELLS (BEAKER) (test 0 /100 WBC 0-0 zutf=204) NEUTROPHILS RELATIVE PERCENT (BEAKER) (test 72 % zval=552) LYMPHOCYTES RELATIVE PERCENT (BEAKER) (test 13 % ljtl=817) MONOCYTES RELATIVE PERCENT (BEAKER) (test 9 % cnwg=864) EOSINOPHILS RELATIVE PERCENT (BEAKER) (test 4 % qzxk=179) BASOPHILS RELATIVE PERCENT (BEAKER) (test 1 % bwtk=813) NEUTROPHILS ABSOLUTE COUNT (BEAKER) (test 6.04 K/ L 1.56-6.13 pyye=199) LYMPHOCYTES ABSOLUTE COUNT (BEAKER) (test 1.08 K/ L 1.18-3.74 qvqw=620) MONOCYTES ABSOLUTE COUNT (BEAKER) (test 0.78 K/ L 0.24-0.36 ugyk=247) EOSINOPHILS ABSOLUTE COUNT (BEAKER) (test 0.37 K/ L 0.04-0.36 ggqn=041) BASOPHILS ABSOLUTE COUNT (BEAKER) (test 0.04 K/ L 0.01-0.08 iaoj=806) IMMATURE GRANULOCYTES-RELATIVE PERCENT (BEAKER) 1 % 0-1 (test ffub=5120) POCT-GLUCOSE [id number] 21:34:00 Test Item Value Reference Range Comments POC-GLUCOSE METER (BEAKER) 173 mg/dL 70-[address] [facility] [address] [facility] (test jerl=0740) [facility] [address] BLOOD [id number] 19:00:00 Test Item Value Reference Range Comments CULTURE (BEAKER) (test ojpm=9982) No growth in 5 days BLOOD [id number] 19:00:00 Test Item Value Reference Range Comments CULTURE (BEAKER) (test xanm=1664) No growth in 5 days POCT-GLUCOSE [id number] 17:19:00 Test Item Value Reference Range Comments POC-GLUCOSE METER (BEAKER) 299 mg/dL 70-110 TESTED AT [address] (test kuzg=3592) [facility] [address] POCT-GLUCOSE [id number] 12:23:00 Test Item Value Reference Range Comments POC-GLUCOSE METER (BEAKER) 141 mg/dL 70-110 TESTED AT [address] (test slua=9461) [facility] [address] BODY FLUID CULTURE + GRAM [id number] 10:00:00 Test Item Value Reference Range Comments CULTURE (BEAKER) (test mmhc=7124) No growth GRAM STAIN RESULT (BEAKER) (test <1+ WBCs rfuo=3528) GRAM STAIN RESULT (BEAKER) (test No organisms seen ghel=46708) POCT-GLUCOSE [id number] 07:56:00 Test Item Value Reference Range Comments POC-GLUCOSE METER (BEAKER) 116 mg/dL 70-110 TESTED AT [address] (test aptk=3162) [facility] [address] [id number] 05:35:00 Test Item Value Reference Range Comments PHOSPHORUS (BEAKER) (test oivw=522) 2.7 mg/dL 2.3-4.7 [id number] 05:35:00 Test Item Value Reference Range Comments MAGNESIUM (BEAKER) (test ejdy=996) 1.6 mg/dL 1.6-2.6 COMPREHENSIVE METABOLIC [id number] 05:35:00 Test Item Value Reference Range Comments TOTAL PROTEIN (BEAKER) 6.0 gm/dL 6.0-8.3 (test eflx=331) ALBUMIN (BEAKER) (test 2.7 g/dL 3.5-5.0 wmrs=9059) ALKALINE PHOSPHATASE 204 U/L 40-150 (BEAKER) (test habt=980) BILIRUBIN TOTAL (BEAKER) 0.2 mg/dL 0.2-1.2 (test xeeo=750) SODIUM (BEAKER) (test 136 meq/L 136-145 dswb=410) POTASSIUM (BEAKER) (test 3.8 meq/L 3.5-5.1 ghhi=029) CHLORIDE (BEAKER) (test 101 meq/L 98-107 jucf=968) CO2 (BEAKER) (test 29 meq/L 22-29 vdsm=726) BLOOD UREA NITROGEN 18 mg/dL 7-21 (BEAKER) (test rhbo=032) CREATININE (BEAKER) (test 2.09 mg/dL 0.57-1.25 wilg=855) GLUCOSE RANDOM (BEAKER) 149 mg/dL 70-105 (test pxsc=836) CALCIUM (BEAKER) (test 8.1 mg/dL 8.4-10.2 omzj=001) AST (SGOT) (BEAKER) (test 19 U/L 5-34 qirp=114) ALT (SGPT) (BEAKER) (test 25 U/L 6-55 hcdv=849) EGFR (BEAKER) (test 24 mL/min/1.73 sq m ESTIMATED GFR IS NOT lgvv=0853) ACCURATE CREATININE CLEARANCE IN PREDICTING GLOMERULAR FILTRATION RATE. ESTIMATED GFR IS NOT APPLICABLE FOR DIALYSIS PATIENTS. CBC W/PLT COUNT & AUTO [id number] 05:03:00 Test Item Value Reference Range Comments WHITE BLOOD CELL COUNT (BEAKER) (test moef=469) 7.7 K/ L 3.5-10.5 RED BLOOD CELL COUNT (BEAKER) (test zvzl=694) 2.48 M/ L 3.93-5.22 HEMOGLOBIN (BEAKER) (test mwrn=587) 7.2 GM/DL 11.2-15.7 HEMATOCRIT (BEAKER) (test vqyq=296) 23.4 % 34.1-44.9 MEAN CORPUSCULAR VOLUME (BEAKER) (test tmai=062) 94.4 fL 79.4-94.8 MEAN CORPUSCULAR HEMOGLOBIN (BEAKER) (test 29.0 pg 25.6-32.2 eniu=503) MEAN CORPUSCULAR HEMOGLOBIN CONC (BEAKER) (test 30.8 GM/DL 32.2-35.5 qhuq=392) RED CELL DISTRIBUTION WIDTH (BEAKER) (test 16.0 % 11.7-14.4 dnnm=071) PLATELET COUNT (BEAKER) (test xajj=179) 133 K/CU MM 150-450 MEAN PLATELET VOLUME (BEAKER) (test jyxh=913) 12.8 fL 9.4-12.3 NUCLEATED RED BLOOD CELLS (BEAKER) (test 0 /100 WBC 0-0 dhpa=067) NEUTROPHILS RELATIVE PERCENT (BEAKER) (test 74 % avmq=182) LYMPHOCYTES RELATIVE PERCENT (BEAKER) (test 12 % gyma=891) MONOCYTES RELATIVE PERCENT (BEAKER) (test 9 % calh=754) EOSINOPHILS RELATIVE PERCENT (BEAKER) (test 4 % wora=206) BASOPHILS RELATIVE PERCENT (BEAKER) (test 0 % puto=279) NEUTROPHILS ABSOLUTE COUNT (BEAKER) (test 5.75 K/ L 1.56-6.13 ibnw=110) LYMPHOCYTES ABSOLUTE COUNT (BEAKER) (test 0.92 K/ L 1.18-3.74 ytwl=612) MONOCYTES ABSOLUTE COUNT (BEAKER) (test 0.69 K/ L 0.24-0.36 gnwp=673) EOSINOPHILS ABSOLUTE COUNT (BEAKER) (test 0.29 K/ L 0.04-0.36 mayo=821) BASOPHILS ABSOLUTE COUNT (BEAKER) (test 0.03 K/ L 0.01-0.08 ejgs=692) IMMATURE GRANULOCYTES-RELATIVE PERCENT (BEAKER) 1 % 0-1 (test bikf=2169) POCT-GLUCOSE [id number] 00:49:00 Test Item Value Reference Range Comments POC-GLUCOSE METER (BEAKER) 182 mg/dL 70-110 TESTED AT [address] (test estf=8655) [facility] [address] POCT-GLUCOSE [id number] 16:30:00 Test Item Value Reference Range Comments POC-GLUCOSE METER (BEAKER) 104 mg/dL 70-110 TESTED AT [address] (test zjjq=9599) [facility] [address] RAD, CHEST, 1 VIEW, NON [id number] 15:10:00Reason for exam:->Trialysis line placement Should this [...] stable in size. No fracture. Signed: Macie Fraire Verified Date/ Time: 05/11/2018 15:10:31 Reading Location: [facility] Radiology Reading Room POCT-GLUCOSE [id number] 12:32:00 Test Item Value Reference Range Comments POC-GLUCOSE METER (BEAKER) 111 mg/dL 70-[address] [facility] [address] [facility] (test ghsm=2366) [facility] [address] POCT-GLUCOSE [id number] 08:05:00 Test Item Value Reference Range Comments POC-GLUCOSE METER (BEAKER) 135 mg/dL 70-110 TESTED AT [place] [id number] [facility] (test hbxs=3233) [facility] [address] [id number] 05:41:00 Test Item Value Reference Range Comments PROTIME (BEAKER) (test lpaw=374) 14.4 seconds 11.7-14.7 INR (BEAKER) (test foss=470) 1.1 <=5.9 PARTIAL THROMBOPLASTIN TIME (BEAKER) (test 37.5 seconds 22.5-36.0 mpju=258) RECOMMENDED COUMADIN/WARFARIN INR THERAPY RANGESSTANDARD DOSE: 2.0 - 3.0 Includes: PROPHYLAXIS forvenous thrombosis, systemic embolization; TREATMENT for venous thrombosis and/or pulmonary embolus.HIGH RISK: Target INR is 2.5-3.5 for patients with mechanical heart valves.COMPREHENSIVE METABOLIC [id number] 05:30:00 Test Item Value Reference Range Comments TOTAL PROTEIN (BEAKER) 6.4 gm/dL 6.0-8.3 (test pxif=201) ALBUMIN (BEAKER) (test 2.9 g/dL 3.5-5.0 clod=3065) ALKALINE PHOSPHATASE 224 U/L 40-150 (BEAKER) (test vzzp=354) BILIRUBIN TOTAL (BEAKER) 0.3 mg/dL 0.2-1.2 (test xedl=735) SODIUM (BEAKER) (test 134 meq/L 136-145 xsdw=569) POTASSIUM (BEAKER) (test 3.9 meq/L 3.5-5.1 kgnp=196) CHLORIDE (BEAKER) (test 101 meq/L 98-107 yqos=729) CO2 (BEAKER) (test 26 meq/L 22-29 pgtd=938) BLOOD UREA NITROGEN 30 mg/dL 7-21 (BEAKER) (test almm=161) CREATININE (BEAKER) (test 3.21 mg/dL 0.57-1.25 ioky=088) GLUCOSE RANDOM (BEAKER) 113 mg/dL 70-105 (test hahk=571) CALCIUM (BEAKER) (test 8.2 mg/dL 8.4-10.2 xfgi=533) AST (SGOT) (BEAKER) (test 19 U/L 5-34 odrb=366) ALT (SGPT) (BEAKER) (test 25 U/L 6-55 twre=182) EGFR (BEAKER) (test 14 mL/min/1.73 sq m ESTIMATED GFR IS NOT dbtc=6834) ACCURATE CREATININE CLEARANCE IN PREDICTING GLOMERULAR FILTRATION RATE. ESTIMATED GFR IS NOT APPLICABLE FOR DIALYSIS PATIENTS. [id number] 05:26:00 Test Item Value Reference Range Comments PHOSPHORUS (BEAKER) (test tlmr=688) 3.7 mg/dL 2.3-4.7 [id number] 05:26:00 Test Item Value Reference Range Comments MAGNESIUM (BEAKER) (test oyjb=352) 1.8 mg/dL 1.6-2.6 CBC W/PLT COUNT & AUTO [id number] 05:22:00 Test Item Value Reference Range Comments WHITE BLOOD CELL COUNT (BEAKER) (test cgkn=263) 10.4 K/ L 3.5-10.5 RED BLOOD CELL COUNT (BEAKER) (test ptsr=246) 2.74 M/ L 3.93-5.22 HEMOGLOBIN (BEAKER) (test wngq=048) 7.9 GM/DL 11.2-15.7 HEMATOCRIT (BEAKER) (test cfhy=776) 25.5 % 34.1-44.9 MEAN CORPUSCULAR VOLUME (BEAKER) (test noll=646) 93.1 fL 79.4-94.8 MEAN CORPUSCULAR HEMOGLOBIN (BEAKER) (test 28.8 pg 25.6-32.2 dgoz=888) MEAN CORPUSCULAR HEMOGLOBIN CONC (BEAKER) (test 31.0 GM/DL 32.2-35.5 xzhb=920) RED CELL DISTRIBUTION WIDTH (BEAKER) (test 16.3 % 11.7-14.4 xfde=517) PLATELET COUNT (BEAKER) (test rrgs=693) 155 K/CU MM 150-450 MEAN PLATELET VOLUME (BEAKER) (test tqrq=256) 12.2 fL 9.4-12.3 NUCLEATED RED BLOOD CELLS (BEAKER) (test 0 /100 WBC 0-0 bfwn=867) NEUTROPHILS RELATIVE PERCENT (BEAKER) (test 76 % vjoo=502) LYMPHOCYTES RELATIVE PERCENT (BEAKER) (test 11 % wetx=834) MONOCYTES RELATIVE PERCENT (BEAKER) (test 9 % mygq=040) EOSINOPHILS RELATIVE PERCENT (BEAKER) (test 4 % zxzm=255) BASOPHILS RELATIVE PERCENT (BEAKER) (test 0 % bnzd=852) NEUTROPHILS ABSOLUTE COUNT (BEAKER) (test 7.95 K/ L 1.56-6.13 txcp=907) LYMPHOCYTES ABSOLUTE COUNT (BEAKER) (test 1.10 K/ L 1.18-3.74 faag=807) MONOCYTES ABSOLUTE COUNT (BEAKER) (test 0.89 K/ L 0.24-0.36 jiux=651) EOSINOPHILS ABSOLUTE COUNT (BEAKER) (test 0.36 K/ L 0.04-0.36 jucr=101) BASOPHILS ABSOLUTE COUNT (BEAKER) (test 0.03 K/ L 0.01-0.08 rvli=474) IMMATURE GRANULOCYTES-RELATIVE PERCENT (BEAKER) 1 % 0-1 (test bjtb=7131) POCT-GLUCOSE [id number] 03:05:00 Test Item Value Reference Range Comments POC-GLUCOSE METER (BEAKER) 192 mg/dL 70-110 TESTED AT [address] (test ixsc=1594) [place] [address] POCT-GLUCOSE [id number] 03:05:00 Test Item Value Reference Range Comments POC-GLUCOSE METER (BEAKER) 165 mg/dL 70-110 TESTED AT [address] (test qasw=0410) [place] [address] [address], CHEST, WITHOUT [id number] 18:13:00FINAL REPORT INDICATION: Shortness of breath and [...] nodular opacities most likely representing pneumonia. Signed: Raghavendra Lau Verified Date/Time: 05/10/2018 18: 13:02 Reading Location: [facility] [id number] CT Body Reading Room POCT-GLUCOSE [id number] 16:48:00 Test Item Value Reference Range Comments POC-GLUCOSE METER (BEAKER) 157 mg/dL 70-110 TESTED AT [address] (test tlwg=9405) [facility] [address] CT, BRAIN, WITHOUT [id number] 15:32:00FINAL REPORT CT head without contrast 05/10/2018 [...] further evaluation with MRI is recommended. Signed: Karen Brennan Verified Date/Time: 05/10/2018 15:32:37 Reading Location: [facility] Radiology Reading Room WOUND CULTURE + GRAM [id number] 13:40:00 Test Item Value Reference Range Comments CULTURE (BEAKER) (test METHICILLIN RESISTANT 1+ Methicillin dcqj=2902) STAPHYLOCOCCUS AUREUS resistant Staphylococcus aureus Clindamycin (test code=10) Erythromycin (test code=4) Linezolid (test code=40) Nitrofurantoin (test code=23) Oxacillin (test code=14) Rifampin (test code=43) Tetracycline (test code=2) Trimethoprim + Sulfamethoxazole (test code=47) Vancomycin (test code=13) GRAM STAIN RESULT <1+ WBCs (BEAKER) (test idnc=2214) GRAM STAIN RESULT <1+ gram variable (BEAKER) (test coccobacilli pxln=631747) 3+ Skin floraC-REACTIVE [id number] 12:36:00 Test Item Value Reference Range Comments C-REACTIVE PROTEIN (BEAKER) (test tdbz=216) 2.43 mg/dL 0.00-0.50 BLOOD GAS, [id number] 12:09:00 Test Item Value Reference Range Comments PH ARTERIAL (BEAKER) (test qjgp=552) 7.47 7.35-7.45 PCO2 ARTERIAL (BEAKER) (test ghgl=255) 39 mmHg 35-45 PO2 ARTERIAL (BEAKER) (test qiuk=374) 87 mmHg 80-90 O2 SATURATION ARTERIAL (BEAKER) (test nedd=458) 97.2 % 96.0-97.0 HCO3 ARTERIAL (BEAKER) (test rqez=036) 27 mmol/L 21-29 BASE EXCESS ARTERIAL (BEAKER) (test yuqw=749) 3.5 mmol/L -2.0-3.0 PATIENT TEMPERATURE (BEAKER) (test nmdv=5977) 36.9 C FIO2 (BEAKER) (test dwsz=5486) 60.0 % POCT-GLUCOSE [id number] 10:31:00 Test Item Value Reference Range Comments POC-GLUCOSE METER (BEAKER) 141 mg/dL 70-[address] [facility] [address] (test sqwn=3250) [place] [address] RAD, CHEST, 1 VIEW, NON [id number] 09:55:00Reason for exam:-> hypoxicShould this be performed [...] MDReport Verified Date/Time: 05/10/2018 09:55:25 Reading Location: [facility] Radiology Reading Room POCT-GLUCOSE [id number] 06:38:00 Test Item Value Reference Range Comments POC-GLUCOSE METER (BEAKER) 143 mg/dL 70-110 TESTED AT [address] (test dfrm=4380) [facility] [address] POCT-GLUCOSE [id number] 05:39:00 Test Item Value Reference Range Comments POC-GLUCOSE METER (BEAKER) 132 mg/dL 70-110 TESTED AT [address] (test oisg=2157) [facility] [address] COMPREHENSIVE METABOLIC [id number] 05:02:00 Test Item Value Reference Range Comments TOTAL PROTEIN (BEAKER) 6.2 gm/dL 6.0-8.3 (test ptct=152) ALBUMIN (BEAKER) (test 2.8 g/dL 3.5-5.0 rsie=1727) ALKALINE PHOSPHATASE 213 U/L 40-150 (BEAKER) (test usto=990) BILIRUBIN TOTAL (BEAKER) 0.4 mg/dL 0.2-1.2 (test qpbk=157) SODIUM (BEAKER) (test 137 meq/L 136-145 mpuc=439) POTASSIUM (BEAKER) (test 3.6 meq/L 3.5-5.1 xgkb=359) CHLORIDE (BEAKER) (test 102 meq/L 98-107 dhvy=391) CO2 (BEAKER) (test 27 meq/L 22-29 noyh=588) BLOOD UREA NITROGEN 19 mg/dL 7-21 (BEAKER) (test hvir=257) CREATININE (BEAKER) (test 2.05 mg/dL 0.57-1.25 plsk=529) GLUCOSE RANDOM (BEAKER) 116 mg/dL 70-105 (test dxlj=174) CALCIUM (BEAKER) (test 8.2 mg/dL 8.4-10.2 ohkf=878) AST (SGOT) (BEAKER) (test 22 U/L 5-34 cznb=844) ALT (SGPT) (BEAKER) (test 27 U/L 6-55 sjha=644) EGFR (BEAKER) (test 24 mL/min/1.73 sq m ESTIMATED GFR IS NOT hnsb=3945) ACCURATE CREATININE CLEARANCE IN PREDICTING GLOMERULAR FILTRATION RATE. ESTIMATED GFR IS NOT APPLICABLE FOR DIALYSIS PATIENTS. [id number] 05:02:00 Test Item Value Reference Range Comments PROTIME (BEAKER) (test hjih=410) 14.4 seconds 11.7-14.7 INR (BEAKER) (test mmcy=960) 1.1 <=5.9 PARTIAL THROMBOPLASTIN TIME (BEAKER) (test 28.1 seconds 22.5-36.0 nshe=514) RECOMMENDED COUMADIN/WARFARIN INR THERAPY RANGESSTANDARD DOSE: 2.0 - 3.0 Includes: PROPHYLAXIS forvenous thrombosis, systemic embolization; TREATMENT for venous thrombosis and/or pulmonary embolus.HIGH RISK: Target INR is 2.5-3.5 for patients with mechanical heart valves.[id number] 04:58:00 Test Item Value Reference Range Comments MAGNESIUM (BEAKER) (test aynd=652) 1.7 mg/dL 1.6-2.6 CBC W/PLT COUNT & AUTO [id number] 04:47:00 Test Item Value Reference Range Comments WHITE BLOOD CELL COUNT (BEAKER) (test fhvt=664) 9.1 K/ L 3.5-10.5 RED BLOOD CELL COUNT (BEAKER) (test zprt=483) 2.71 M/ L 3.93-5.22 HEMOGLOBIN (BEAKER) (test bmbj=385) 7.8 GM/DL 11.2-15.7 HEMATOCRIT (BEAKER) (test jodz=392) 25.0 % 34.1-44.9 MEAN CORPUSCULAR VOLUME (BEAKER) (test ujth=687) 92.3 fL 79.4-94.8 MEAN CORPUSCULAR HEMOGLOBIN (BEAKER) (test 28.8 pg 25.6-32.2 zwie=537) MEAN CORPUSCULAR HEMOGLOBIN CONC (BEAKER) (test 31.2 GM/DL 32.2-35.5 azjf=266) RED CELL DISTRIBUTION WIDTH (BEAKER) (test 16.2 % 11.7-14.4 itgq=651) PLATELET COUNT (BEAKER) (test qzcm=632) 118 K/CU MM 150-450 MEAN PLATELET VOLUME (BEAKER) (test lbyn=498) 12.4 fL 9.4-12.3 NUCLEATED RED BLOOD CELLS (BEAKER) (test 0 /100 WBC 0-0 huwg=526) NEUTROPHILS RELATIVE PERCENT (BEAKER) (test 72 % jqau=560) LYMPHOCYTES RELATIVE PERCENT (BEAKER) (test 13 % xipy=486) MONOCYTES RELATIVE PERCENT (BEAKER) (test 9 % rfzo=507) EOSINOPHILS RELATIVE PERCENT (BEAKER) (test 5 % epjj=216) BASOPHILS RELATIVE PERCENT (BEAKER) (test 0 % gzsa=651) NEUTROPHILS ABSOLUTE COUNT (BEAKER) (test 6.49 K/ L 1.56-6.13 ppny=369) LYMPHOCYTES ABSOLUTE COUNT (BEAKER) (test 1.22 K/ L 1.18-3.74 ddvw=573) MONOCYTES ABSOLUTE COUNT (BEAKER) (test 0.79 K/ L 0.24-0.36 jwdh=267) EOSINOPHILS ABSOLUTE COUNT (BEAKER) (test 0.43 K/ L 0.04-0.36 zptt=769) BASOPHILS ABSOLUTE COUNT (BEAKER) (test 0.03 K/ L 0.01-0.08 blbn=245) IMMATURE GRANULOCYTES-RELATIVE PERCENT (BEAKER) 1 % 0-1 (test myhn=0573) POCT-GLUCOSE [id number] 00:13:00 Test Item Value Reference Range Comments POC-GLUCOSE METER (BEAKER) 160 mg/dL 70-[address] [facility] [address] (test lsjh=4818) [facility] [address] BODY FLUID CELL COUNT WITH [id number] 21:03:00 Test Item Value Reference Range Comments APPEARANCE FLUID (BEAKER) (test qqit=000) Slightly Hazy Clear COLOR FLUID (BEAKER) (test hfpk=667) Straw Colorless, Straw RBC FLUID (BEAKER) (test bulf=830) 224 /cu mm <=1 ADJUSTED WBC FLUID (BEAKER) (test kmsj=3264) 6 /cu mm <=5 LINING CELLS (BEAKER) (test qujq=1152) 0 /cu mm <=1 NEUTROPHILS FLUID (BEAKER) (test rquh=4892) 17 % LYMPHS FLUID (BEAKER) (test klom=029) 83 % MONO/MACROPHAGE FLUID (BEAKER) (test 0 % zrbl=860) EOSINOPHILS FLUID (BEAKER) (test lxey=479) 0 % BASO FLUID (BEAKER) (test raba=394) 0 % CONTAINER BODY FLUID (BEAKER) (test EDTA Tube cgia=6778) LACTATE DEHYDROGENASE (LDH), BODY [id number] 17:59:00 Test Item Value Reference Range Comments LACTATE DEHYDROGENASE FLUID (BEAKER) < U/L Light's criteria identifies (test nhzg=616) effusions if one or more are pre Absence of reference range indicates that normals have not been defined.Assay performance has not been validated for this type of specimen.PROTEIN, BODY [id number] 17:59:00 Test Item Value Reference Range Comments PROTEIN FLUID (BEAKER) (test 2.0 g/dL Light's criteria identifies fdrd=659) effusions if one or more are pre Absence of reference range indicates that normals have not been defined.Assay performance has not been validated for this type of specimen.GLUCOSE, BODY [id number] 17:59:00 Test Item Value Reference Range Comments GLUCOSE, BODY FLUID (BEAKER) (test fjab=0696) 131 mg/dL 70-110 Absence of reference range indicates that normals have not been defined.Assay performance has not been validated for this type of specimen.POCT-GLUCOSE [id number] 17:57:00 Test Item Value Reference Range Comments POC-GLUCOSE METER (BEAKER) 143 mg/dL 70-[address] [facility] [address] (test keda=3781) [place] [address] PROTEIN, [id number] 17:53:00 Test Item Value Reference Range Comments TOTAL PROTEIN (BEAKER) (test urcd=092) 6.1 gm/dL 6.0-8.3 [id number] 17:53:00 Test Item Value Reference Range Comments GLUCOSE RANDOM (BEAKER) (test qjtx=617) 144 mg/dL 70-105 LACTATE DEHYDROGENASE (LDH)2018-05-09 17:53:00 Test Item Value Reference Range Comments LACTATE DEHYDROGENASE (BEAKER) (test zhth=321) 244 U/L 125-220 PH, BODY [id number] 17:48:00 Test Item Value Reference Range Comments PH, BODY FLUID (BEAKER) (test xadl=4683) 7.84 RAD, CHEST, 1 VIEW, NON [id number] 17:13:00Reason for exam:->follow up Right thoracentesis Should [...] [place] Verified Date/Time: 05/09/2018 17:13:12 Reading Location: [address] Consult Reading Room POCT- GLUCOSE [id number] 12:26:00 Test Item Value Reference Range Comments POC-GLUCOSE METER (BEAKER) 141 mg/dL 70-110 TESTED AT [address] (test ieht=7502) [facility] [address] [id number] 10:26:00 Test Item Value Reference Range Comments PROCALCITONIN (BEAKER) (test ycin=7268) 0.12 ng/mL <0.05 SEPSIS RISK (ng/mL)Low: 0.05-0.50Intermediate: 0.51-2.00High: & gt;=2.01BLOOD GAS, [id number] 09:14:00 Test Item Value Reference Range Comments PH ARTERIAL (BEAKER) (test dpys=726) 7.42 7.35-7.45 PCO2 ARTERIAL (BEAKER) (test cymb=769) 34 mmHg 35-45 PO2 ARTERIAL (BEAKER) (test vblm=292) 88 mmHg 80-90 O2 SATURATION ARTERIAL (BEAKER) (test sdju=824) 97.0 % 96.0-97.0 HCO3 ARTERIAL (BEAKER) (test sdes=376) 22 mmol/L 21-29 BASE EXCESS ARTERIAL (BEAKER) (test zbqo=295) -2.7 mmol/L -2.0-3.0 PATIENT TEMPERATURE (BEAKER) (test mqwh=7207) 36.7 C FIO2 (BEAKER) (test lald=0674) 80.0 % B-TYPE NATRIURETIC FACTOR (BNP)2018-05-09 09:08:00 Test Item Value Reference Range Comments B-TYPE NATRIURETIC PEPTIDE (BEAKER) (test 919 pg/mL 0-100 rsdt=956) CBC W/PLT COUNT & AUTO [id number] 08:47:00 Test Item Value Reference Range Comments WHITE BLOOD CELL COUNT (BEAKER) (test wbkg=760) 9.9 K/ L 3.5-10.5 RED BLOOD CELL COUNT (BEAKER) (test fwik=437) 2.58 M/ L 3.93-5.22 HEMOGLOBIN (BEAKER) (test elxw=213) 7.5 GM/DL 11.2-15.7 HEMATOCRIT (BEAKER) (test jlzm=653) 24.2 % 34.1-44.9 MEAN CORPUSCULAR VOLUME (BEAKER) (test fkea=844) 93.8 fL 79.4-94.8 MEAN CORPUSCULAR HEMOGLOBIN (BEAKER) (test 29.1 pg 25.6-32.2 oaie=374) MEAN CORPUSCULAR HEMOGLOBIN CONC (BEAKER) (test 31.0 GM/DL 32.2-35.5 pkca=646) RED CELL DISTRIBUTION WIDTH (BEAKER) (test 16.4 % 11.7-14.4 cydj=066) PLATELET COUNT (BEAKER) (test fylw=429) 130 K/CU MM 150-450 MEAN PLATELET VOLUME (BEAKER) (test jhau=883) 12.2 fL 9.4-12.3 NUCLEATED RED BLOOD CELLS (BEAKER) (test 0 /100 WBC 0-0 them=762) NEUTROPHILS RELATIVE PERCENT (BEAKER) (test 72 % fhqm=180) LYMPHOCYTES RELATIVE PERCENT (BEAKER) (test 13 % knse=377) MONOCYTES RELATIVE PERCENT (BEAKER) (test 9 % tzfd=358) EOSINOPHILS RELATIVE PERCENT (BEAKER) (test 4 % xzxu=720) BASOPHILS RELATIVE PERCENT (BEAKER) (test 0 % dpge=857) NEUTROPHILS ABSOLUTE COUNT (BEAKER) (test 7.12 K/ L 1.56-6.13 qbbq=643) LYMPHOCYTES ABSOLUTE COUNT (BEAKER) (test 1.24 K/ L 1.18-3.74 gsmb=838) MONOCYTES ABSOLUTE COUNT (BEAKER) (test 0.90 K/ L 0.24-0.36 qgkw=443) EOSINOPHILS ABSOLUTE COUNT (BEAKER) (test 0.41 K/ L 0.04-0.36 otbx=903) BASOPHILS ABSOLUTE COUNT (BEAKER) (test 0.04 K/ L 0.01-0.08 lduz=271) IMMATURE GRANULOCYTES-RELATIVE PERCENT (BEAKER) 2 % 0-1 (test xxxj=2351) POCT-GLUCOSE [id number] 07:18:00 Test Item Value Reference Range Comments POC-GLUCOSE METER (BEAKER) 244 mg/dL 70-[address] [facility] [address] (test nepb=8059) [facility] [address] CALCIUM, [id number] 04:58:00 Test Item Value Reference Range Comments CALCIUM IONIZED (BEAKER) (test laoy=832) 1.08 mmol/L 1.12-1.27 PH, BLOOD (BEAKER) (test vqxp=9148) 7.38 COMPREHENSIVE METABOLIC [id number] 04:24:00 Test Item Value Reference Range Comments TOTAL PROTEIN (BEAKER) 5.7 gm/dL 6.0-8.3 (test tjua=953) ALBUMIN (BEAKER) (test 2.6 g/dL 3.5-5.0 qhgo=3030) ALKALINE PHOSPHATASE 210 U/L 40-150 (BEAKER) (test anvy=395) BILIRUBIN TOTAL (BEAKER) 0.3 mg/dL 0.2-1.2 (test anqi=997) SODIUM (BEAKER) (test 137 meq/L 136-145 hahs=539) POTASSIUM (BEAKER) (test 4.0 meq/L 3.5-5.1 oxul=231) CHLORIDE (BEAKER) (test 103 meq/L 98-107 kwzx=639) CO2 (BEAKER) (test 22 meq/L 22-29 jpsk=321) BLOOD UREA NITROGEN 34 mg/dL 7-21 (BEAKER) (test bsmv=920) CREATININE (BEAKER) (test 3.34 mg/dL 0.57-1.25 uaio=364) GLUCOSE RANDOM (BEAKER) 244 mg/dL 70-105 (test hmlp=071) CALCIUM (BEAKER) (test 8.0 mg/dL 8.4-10.2 ngbb=495) AST (SGOT) (BEAKER) (test 24 U/L 5-34 zbvn=448) ALT (SGPT) (BEAKER) (test 30 U/L 6-55 tlbm=429) EGFR (BEAKER) (test 14 mL/min/1.73 sq m ESTIMATED GFR IS NOT apce=8162) ACCURATE CREATININE CLEARANCE IN PREDICTING GLOMERULAR FILTRATION RATE. ESTIMATED GFR IS NOT APPLICABLE FOR DIALYSIS PATIENTS. [id number] 04:23:00 Test Item Value Reference Range Comments PHOSPHORUS (BEAKER) (test uszr=071) 4.1 mg/dL 2.3-4.7 [id number] 04:23:00 Test Item Value Reference Range Comments MAGNESIUM (BEAKER) (test azii=230) 1.7 mg/dL 1.6-2.6 [id number] 04:17:00 Test Item Value Reference Range Comments PARTIAL THROMBOPLASTIN TIME (BEAKER) (test 22.4 seconds 22.5-36.0 nxuw=566) PROTHROMBIN [id number] 04:16:00 Test Item Value Reference Range Comments PROTIME (BEAKER) (test hfed=151) 14.3 seconds 11.7-14.7 INR (BEAKER) (test hxtx=982) 1.1 <=5.9 RECOMMENDED COUMADIN/WARFARIN INR THERAPY RANGESSTANDARD DOSE: 2.0 - 3.0 Includes: PROPHYLAXIS forvenous thrombosis, systemic embolization; TREATMENT for venous thrombosis and/or pulmonary embolus.HIGH RISK: Target INR is 2.5-3.5 for patients with mechanical heart valves.RAD, CHEST, 1 VIEW, NON [id number] 03:26:00Reason for exam:->pleural effusionShould this be performed at the bedside?->YesFINAL REPORT CLINICAL INDICATION: Pleural effusion Comparison: 05/08/2018 The cardiomediastinal contours are stable. Central pulmonary vascular congestion and bilateral parenchymal and pleural opacities are unchanged. There is no pneumothorax. A right PICC line is stable. Signed:Kp Engle MDReport Verified Date/Time: 05/09/2018 03:26:29 Reading Location: [address] Reading Room POCT-GLUCOSE [id number] 23:03:00 Test Item Value Reference Range Comments POC-GLUCOSE METER (BEAKER) 181 mg/dL 70-110 TESTED AT [address] (test mdwa=0521) [facility] [address] POCT-GLUCOSE [id number] 20:41:00 Test Item Value Reference Range Comments POC-GLUCOSE METER (BEAKER) 201 mg/dL 70-110 TESTED AT [address] (test kxpd=0566) [facility] [address] POCT-GLUCOSE [id number] 18:47:00 Test Item Value Reference Range Comments POC-GLUCOSE METER (BEAKER) 242 mg/dL 70-110 TESTED AT [address] (test ghpc=7483) [facility] [address] POCT-GLUCOSE [id number] 11:49:00 Test Item Value Reference Range Comments POC-GLUCOSE METER (BEAKER) 178 mg/dL 70-110 TESTED AT [address] (test uqkr=9854) [facility] [address] BLOOD GAS, [id number] 11:27:00 Test Item Value Reference Range Comments PH VENOUS (BEAKER) (test garx=504) 7.43 7.32-7.42 PCO2 VENOUS (BEAKER) (test kldh=785) 36 mmHg 41-51 PO2 VENOUS (BEAKER) (test dmfl=747) 65 mmHg 25-40 O2 SATURATION VENOUS (BEAKER) (test kfmq=241) 93.6 % 40.0-70.0 HCO3 VENOUS (BEAKER) (test rbtf=768) 24 mmol/L 21-29 BASE EXCESS VENOUS (BEAKER) (test nooa=514) -0.5 mmol/L -2.0-3.0 PATIENT TEMPERATURE (BEAKER) (test lksn=1781) 37.0 C FIO2 (BEAKER) (test lhrt=4756) 21.0 % CBC W/PLT COUNT & AUTO [id number] 07:40:00 Test Item Value Reference Range Comments WHITE BLOOD CELL COUNT (BEAKER) (test njha=928) 9.2 K/ L 3.5-10.5 RED BLOOD CELL COUNT (BEAKER) (test bndh=019) 2.65 M/ L 3.93-5.22 HEMOGLOBIN (BEAKER) (test cjbw=257) 7.7 GM/DL 11.2-15.7 HEMATOCRIT (BEAKER) (test zanv=429) 24.4 % 34.1-44.9 MEAN CORPUSCULAR VOLUME (BEAKER) (test ozta=695) 92.1 fL 79.4-94.8 MEAN CORPUSCULAR HEMOGLOBIN (BEAKER) (test 29.1 pg 25.6-32.2 yzru=102) MEAN CORPUSCULAR HEMOGLOBIN CONC (BEAKER) (test 31.6 GM/DL 32.2-35.5 vggp=444) RED CELL DISTRIBUTION WIDTH (BEAKER) (test 16.4 % 11.7-14.4 jlxw=485) PLATELET COUNT (BEAKER) (test hwey=305) 135 K/CU MM 150-450 MEAN PLATELET VOLUME (BEAKER) (test tknt=805) 12.9 fL 9.4-12.3 NUCLEATED RED BLOOD CELLS (BEAKER) (test 0 /100 WBC 0-0 pwrr=701) NEUTROPHILS RELATIVE PERCENT (BEAKER) (test 72 % qucq=291) LYMPHOCYTES RELATIVE PERCENT (BEAKER) (test 13 % dzyu=247) MONOCYTES RELATIVE PERCENT (BEAKER) (test 10 % bulk=788) EOSINOPHILS RELATIVE PERCENT (BEAKER) (test 4 % yzde=915) BASOPHILS RELATIVE PERCENT (BEAKER) (test 0 % xxrj=226) NEUTROPHILS ABSOLUTE COUNT (BEAKER) (test 6.61 K/ L 1.56-6.13 fnna=042) LYMPHOCYTES ABSOLUTE COUNT (BEAKER) (test 1.18 K/ L 1.18-3.74 qiom=268) MONOCYTES ABSOLUTE COUNT (BEAKER) (test 0.90 K/ L 0.24-0.36 seuf=110) EOSINOPHILS ABSOLUTE COUNT (BEAKER) (test 0.34 K/ L 0.04-0.36 xygd=513) BASOPHILS ABSOLUTE COUNT (BEAKER) (test 0.03 K/ L 0.01-0.08 ogst=247) IMMATURE GRANULOCYTES-RELATIVE PERCENT (BEAKER) 1 % 0-1 (test cdpz=0739) RAD, CHEST, 1 VIEW, NON [id number] 05:40:00Reason for exam:->pleural effusionShould this be performed at the bedside?->YesFINAL REPORT RAD, CHEST, 1 VIEW, NON DEPT INDICATION: pleural effusion COMPARISON: Prior day's exam FINDINGS: Portable frontal view of the chest. IMPRESSION: Support Lines: Stable. Lungs and pleura: Unchanged airspace and pleural opacities. No pneumothorax.Heart and mediastinum: Stable contours. Additional findings: None. Signed: Marina Hale Verified Date/ Time: 05/08/2018 05:40:53 Reading Location: [address] Transitional Reading Room CBC W/PLT COUNT & AUTO [id number] 04:50:00 Test Item Value Reference Range Comments WHITE BLOOD CELL COUNT (BEAKER) (test brhr=159) 9.9 K/ L 3.5-10.5 RED BLOOD CELL COUNT (BEAKER) (test gmww=644) 2.31 M/ L 3.93-5.22 HEMOGLOBIN (BEAKER) (test qzzx=497) 6.7 GM/DL 11.2-15.7 HEMATOCRIT (BEAKER) (test htab=383) 21.5 % 34.1-44.9 MEAN CORPUSCULAR VOLUME (BEAKER) (test mczs=550) 93.1 fL 79.4-94.8 MEAN CORPUSCULAR HEMOGLOBIN (BEAKER) (test 29.0 pg 25.6-32.2 rkib=226) MEAN CORPUSCULAR HEMOGLOBIN CONC (BEAKER) (test 31.2 GM/DL 32.2-35.5 xurs=857) RED CELL DISTRIBUTION WIDTH (BEAKER) (test 16.3 % 11.7-14.4 lpep=738) PLATELET COUNT (BEAKER) (test wahp=973) 128 K/CU MM 150-450 MEAN PLATELET VOLUME (BEAKER) (test tteu=148) 12.8 fL 9.4-12.3 NUCLEATED RED BLOOD CELLS (BEAKER) (test 0 /100 WBC 0-0 pnrr=013) NEUTROPHILS RELATIVE PERCENT (BEAKER) (test 74 % oeas=886) LYMPHOCYTES RELATIVE PERCENT (BEAKER) (test 12 % yqqu=838) MONOCYTES RELATIVE PERCENT (BEAKER) (test 9 % qlfx=498) EOSINOPHILS RELATIVE PERCENT (BEAKER) (test 3 % xtig=882) BASOPHILS RELATIVE PERCENT (BEAKER) (test 0 % bdso=961) NEUTROPHILS ABSOLUTE COUNT (BEAKER) (test 7.33 K/ L 1.56-6.13 xioi=934) LYMPHOCYTES ABSOLUTE COUNT (BEAKER) (test 1.18 K/ L 1.18-3.74 edzb=156) MONOCYTES ABSOLUTE COUNT (BEAKER) (test 0.89 K/ L 0.24-0.36 gvfn=457) EOSINOPHILS ABSOLUTE COUNT (BEAKER) (test 0.32 K/ L 0.04-0.36 mtqz=879) BASOPHILS ABSOLUTE COUNT (BEAKER) (test 0.04 K/ L 0.01-0.08 ekfl=023) IMMATURE GRANULOCYTES-RELATIVE PERCENT (BEAKER) 1 % 0-1 (test tuex=9966) CALCIUM, [id number] 04:49:00 Test Item Value Reference Range Comments CALCIUM IONIZED (BEAKER) (test ujyp=341) 1.10 mmol/L 1.12-1.27 PH, BLOOD (BEAKER) (test qiwc=7561) 7.40 COMPREHENSIVE METABOLIC [id number] 04:41:00 Test Item Value Reference Range Comments TOTAL PROTEIN (BEAKER) 6.0 gm/dL 6.0-8.3 (test bqft=971) ALBUMIN (BEAKER) (test 2.7 g/dL 3.5-5.0 rjun=7499) ALKALINE PHOSPHATASE 195 U/L 40-150 (BEAKER) (test szsf=771) BILIRUBIN TOTAL (BEAKER) 0.4 mg/dL 0.2-1.2 (test hsxw=191) SODIUM (BEAKER) (test 135 meq/L 136-145 jkze=262) POTASSIUM (BEAKER) (test 3.8 meq/L 3.5-5.1 kldg=718) CHLORIDE (BEAKER) (test 104 meq/L 98-107 quly=272) CO2 (BEAKER) (test 24 meq/L 22-29 uxyj=636) BLOOD UREA NITROGEN 25 mg/dL 7-21 (BEAKER) (test vkwj=984) CREATININE (BEAKER) (test 2.64 mg/dL 0.57-1.25 mvyu=993) GLUCOSE RANDOM (BEAKER) 140 mg/dL 70-105 (test nfdl=009) CALCIUM (BEAKER) (test 7.8 mg/dL 8.4-10.2 zlvi=471) AST (SGOT) (BEAKER) (test 13 U/L 5-34 qtxn=819) ALT (SGPT) (BEAKER) (test 20 U/L 6-55 rath=650) EGFR (BEAKER) (test 18 mL/min/1.73 sq m ESTIMATED GFR IS NOT yrbm=6791) ACCURATE CREATININE CLEARANCE IN PREDICTING GLOMERULAR FILTRATION RATE. ESTIMATED GFR IS NOT APPLICABLE FOR DIALYSIS PATIENTS. [id number] 04:38:00 Test Item Value Reference Range Comments PHOSPHORUS (BEAKER) (test wdhw=132) 3.4 mg/dL 2.3-4.7 [id number] 04:38:00 Test Item Value Reference Range Comments MAGNESIUM (BEAKER) (test cqhl=254) 1.8 mg/dL 1.6-2.6 POCT-GLUCOSE [id number] 21:36:00 Test Item Value Reference Range Comments POC-GLUCOSE METER (BEAKER) 148 mg/dL 70-110 TESTED AT [address] (test bxbt=7191) [facility] [address] POCT-GLUCOSE [id number] 17:22:00 Test Item Value Reference Range Comments POC-GLUCOSE METER (BEAKER) 214 mg/dL 70-110 TESTED AT [address] (test rxzc=4942) [facility] [address] POCT-GLUCOSE [id number] 11:58:00 Test Item Value Reference Range Comments POC-GLUCOSE METER (BEAKER) 96 mg/dL 70-110 TESTED AT [address] (test pbmw=7093) [facility] [address] POCT-GLUCOSE [id number] 07:07:00 Test Item Value Reference Range Comments POC-GLUCOSE METER (BEAKER) 98 mg/dL 70-[address] [facility] [address] (test hsqz=6755) [facility] [address] RAD, CHEST, 1 VIEW, NON [id number] 06:03:00Reason for exam:->pleural effusionShould this be performed [...] mediastinum: Stable contours. Additional findings: None. Signed: Marina Hale Verified Date/Time: 2018 06:03:05 Reading Location: [address] Transitional Reading Room COMPREHENSIVE METABOLIC [id number] 05:10:00 Test Item Value Reference Range Comments TOTAL PROTEIN (BEAKER) 6.0 gm/dL 6.0-8.3 (test xbzw=956) ALBUMIN (BEAKER) (test 2.7 g/dL 3.5-5.0 vqzp=7686) ALKALINE PHOSPHATASE 200 U/L 40-150 (BEAKER) (test mtaz=631) BILIRUBIN TOTAL (BEAKER) 0.4 mg/dL 0.2-1.2 (test edot=800) SODIUM (BEAKER) (test 136 meq/L 136-145 hbxk=614) POTASSIUM (BEAKER) (test 4.1 meq/L 3.5-5.1 iifn=962) CHLORIDE (BEAKER) (test 104 meq/L 98-107 ullu=871) CO2 (BEAKER) (test 21 meq/L 22-29 tduc=813) BLOOD UREA NITROGEN 51 mg/dL 7-21 (BEAKER) (test hcll=379) CREATININE (BEAKER) (test 4.02 mg/dL 0.57-1.25 etqq=880) GLUCOSE RANDOM (BEAKER) 111 mg/dL 70-105 (test ligw=049) CALCIUM (BEAKER) (test 8.2 mg/dL 8.4-10.2 zoqa=430) AST (SGOT) (BEAKER) (test 14 U/L 5-34 uqxo=910) ALT (SGPT) (BEAKER) (test 23 U/L 6-55 synf=755) EGFR (BEAKER) (test 11 mL/min/1.73 sq m ESTIMATED GFR IS NOT ftld=5074) ACCURATE CREATININE CLEARANCE IN PREDICTING GLOMERULAR FILTRATION RATE. ESTIMATED GFR IS NOT APPLICABLE FOR DIALYSIS PATIENTS. [id number] 05:06:00 Test Item Value Reference Range Comments MAGNESIUM (BEAKER) (test emkt=690) 1.9 mg/dL 1.6-2.6 CBC W/PLT COUNT & AUTO [id number] 05:02:00 Test Item Value Reference Range Comments WHITE BLOOD CELL COUNT (BEAKER) (test gjld=717) 12.4 K/ L 3.5-10.5 RED BLOOD CELL COUNT (BEAKER) (test qhyq=223) 2.72 M/ L 3.93-5.22 HEMOGLOBIN (BEAKER) (test qbnv=029) 7.8 GM/DL 11.2-15.7 HEMATOCRIT (BEAKER) (test dmoe=872) 25.1 % 34.1-44.9 MEAN CORPUSCULAR VOLUME (BEAKER) (test ozix=934) 92.3 fL 79.4-94.8 MEAN CORPUSCULAR HEMOGLOBIN (BEAKER) (test 28.7 pg 25.6-32.2 oydq=278) MEAN CORPUSCULAR HEMOGLOBIN CONC (BEAKER) (test 31.1 GM/DL 32.2-35.5 tbjm=580) RED CELL DISTRIBUTION WIDTH (BEAKER) (test 16.1 % 11.7-14.4 vzwc=310) PLATELET COUNT (BEAKER) (test bggk=586) 150 K/CU MM 150-450 MEAN PLATELET VOLUME (BEAKER) (test melk=763) 12.3 fL 9.4-12.3 NUCLEATED RED BLOOD CELLS (BEAKER) (test 0 /100 WBC 0-0 oxzv=514) NEUTROPHILS RELATIVE PERCENT (BEAKER) (test 81 % dyyd=680) LYMPHOCYTES RELATIVE PERCENT (BEAKER) (test 8 % jgpb=809) MONOCYTES RELATIVE PERCENT (BEAKER) (test 8 % lfma=723) EOSINOPHILS RELATIVE PERCENT (BEAKER) (test 2 % lqrv=175) BASOPHILS RELATIVE PERCENT (BEAKER) (test 0 % revm=401) NEUTROPHILS ABSOLUTE COUNT (BEAKER) (test 10.02 K/ L 1.56-6.13 zjvd=122) LYMPHOCYTES ABSOLUTE COUNT (BEAKER) (test 0.97 K/ L 1.18-3.74 gdnl=609) MONOCYTES ABSOLUTE COUNT (BEAKER) (test 0.93 K/ L 0.24-0.36 bjoc=244) EOSINOPHILS ABSOLUTE COUNT (BEAKER) (test 0.28 K/ L 0.04-0.36 lysa=176) BASOPHILS ABSOLUTE COUNT (BEAKER) (test 0.04 K/ L 0.01-0.08 twvq=661) IMMATURE GRANULOCYTES-RELATIVE PERCENT (BEAKER) 2 % 0-1 (test lwgd=7489) POCT-GLUCOSE [id number] 17:48:00 Test Item Value Reference Range Comments POC-GLUCOSE METER (BEAKER) 183 mg/dL 70-110 TESTED AT [address] (test mezu=4269) [place] [address] POCT-GLUCOSE [id number] 12:24:00 Test Item Value Reference Range Comments POC-GLUCOSE METER (BEAKER) 73 mg/dL 70-110 TESTED AT [address] (test znue=6625) [place] [address] POCT-GLUCOSE [id number] 08:17:00 Test Item Value Reference Range Comments POC-GLUCOSE METER (BEAKER) 123 mg/dL 70-110 TESTED AT [address] (test seyp=0410) [place] [address] COMPREHENSIVE METABOLIC [id number] 05:38:00 Test Item Value Reference Range Comments TOTAL PROTEIN (BEAKER) 5.7 gm/dL 6.0-8.3 (test pqda=346) ALBUMIN (BEAKER) (test 2.6 g/dL 3.5-5.0 hkxs=7162) ALKALINE PHOSPHATASE 188 U/L 40-150 (BEAKER) (test bgxe=748) BILIRUBIN TOTAL (BEAKER) 0.4 mg/dL 0.2-1.2 (test omoo=386) SODIUM (BEAKER) (test 138 meq/L 136-145 wiav=982) POTASSIUM (BEAKER) (test 4.0 meq/L 3.5-5.1 mxdu=789) CHLORIDE (BEAKER) (test 106 meq/L 98-107 tjvb=109) CO2 (BEAKER) (test 24 meq/L 22-29 eoxm=600) BLOOD UREA NITROGEN 45 mg/dL 7-21 (BEAKER) (test fjxa=522) CREATININE (BEAKER) (test 3.17 mg/dL 0.57-1.25 psqs=342) GLUCOSE RANDOM (BEAKER) 100 mg/dL 70-105 (test yrpj=579) CALCIUM (BEAKER) (test 8.1 mg/dL 8.4-10.2 gnyz=886) AST (SGOT) (BEAKER) (test 12 U/L 5-34 sckg=024) ALT (SGPT) (BEAKER) (test 22 U/L 6-55 rkdy=268) EGFR (BEAKER) (test 15 mL/min/1.73 sq m ESTIMATED GFR IS NOT vpdb=2139) ACCURATE CREATININE CLEARANCE IN PREDICTING GLOMERULAR FILTRATION RATE. ESTIMATED GFR IS NOT APPLICABLE FOR DIALYSIS PATIENTS. [id number] 05:32:00 Test Item Value Reference Range Comments MAGNESIUM (BEAKER) (test dkel=566) 2.0 mg/dL 1.6-2.6 CBC W/PLT COUNT & AUTO [id number] 04:30:00 Test Item Value Reference Range Comments WHITE BLOOD CELL COUNT (BEAKER) (test mjrh=359) 8.7 K/ L 3.5-10.5 RED BLOOD CELL COUNT (BEAKER) (test rfmz=591) 2.73 M/ L 3.93-5.22 HEMOGLOBIN (BEAKER) (test myyh=527) 7.7 GM/DL 11.2-15.7 HEMATOCRIT (BEAKER) (test tdsi=224) 25.2 % 34.1-44.9 MEAN CORPUSCULAR VOLUME (BEAKER) (test elfn=971) 92.3 fL 79.4-94.8 MEAN CORPUSCULAR HEMOGLOBIN (BEAKER) (test 28.2 pg 25.6-32.2 oait=043) MEAN CORPUSCULAR HEMOGLOBIN CONC (BEAKER) (test 30.6 GM/DL 32.2-35.5 lbev=796) RED CELL DISTRIBUTION WIDTH (BEAKER) (test 16.3 % 11.7-14.4 agri=436) PLATELET COUNT (BEAKER) (test favq=481) 129 K/CU MM 150-450 MEAN PLATELET VOLUME (BEAKER) (test euyv=023) 11.8 fL 9.4-12.3 NUCLEATED RED BLOOD CELLS (BEAKER) (test 0 /100 WBC 0-0 iehy=316) NEUTROPHILS RELATIVE PERCENT (BEAKER) (test 74 % wrie=208) LYMPHOCYTES RELATIVE PERCENT (BEAKER) (test 13 % zkxa=544) MONOCYTES RELATIVE PERCENT (BEAKER) (test 10 % ysde=550) EOSINOPHILS RELATIVE PERCENT (BEAKER) (test 2 % ovpm=201) BASOPHILS RELATIVE PERCENT (BEAKER) (test 0 % zrfx=343) NEUTROPHILS ABSOLUTE COUNT (BEAKER) (test 6.41 K/ L 1.56-6.13 teoc=565) LYMPHOCYTES ABSOLUTE COUNT (BEAKER) (test 1.14 K/ L 1.18-3.74 jfzl=678) MONOCYTES ABSOLUTE COUNT (BEAKER) (test 0.83 K/ L 0.24-0.36 ynhj=723) EOSINOPHILS ABSOLUTE COUNT (BEAKER) (test 0.21 K/ L 0.04-0.36 pnuz=383) BASOPHILS ABSOLUTE COUNT (BEAKER) (test 0.02 K/ L 0.01-0.08 mxcd=652) IMMATURE GRANULOCYTES-RELATIVE PERCENT (BEAKER) 1 % 0-1 (test psre=0780) POCT-GLUCOSE [id number] 20:43:00 Test Item Value Reference Range Comments POC-GLUCOSE METER (BEAKER) 191 mg/dL 70-110 TESTED AT [address] (test yafx=0281) [place] [id number] POCT-GLUCOSE [id number] 18:07:00 Test Item Value Reference Range Comments POC-GLUCOSE METER (BEAKER) 270 mg/dL 70-110 TESTED AT [address] (test dcak=4247) [place] [id number] POCT-GLUCOSE [id number] 10:27:00 Test Item Value Reference Range Comments POC-GLUCOSE METER (BEAKER) 137 mg/dL 70-110 TESTED AT [address] (test fvrh=3753) [place] [id number] URINE [id number] 08:10:00 Test Item Value Reference Range Comments CULTURE (BEAKER) (test >100,000 col/mL Madie sorq=8658) albicans GRAM STAIN RESULT (BEAKER) 3+ WBCs (test pfaf=4171) GRAM STAIN RESULT (BEAKER) 2+ yeast (test nnbv=98474) RAD, CHEST, 1 VIEW, NON [id number] 07:05:00Reason for exam:->dyspnea, pulm edemaShould this be performed at the bedside?->YesFINAL REPORT INDICATION: dyspnea, pulm edema COMPARISON:May 04 TECHNIQUE: Chest radiograph, single view, portable technique. FINDINGS / IMPRESSION: There is worsening of diffuse interstitial opacities representing marked interstitial edema. Heart shadow is prominent. Probablebilateral layering pleural effusions. Right PICC line terminates at the cavoatrial junction. Signed:Raghavendra Lau MDReport Verified Date/Time: 05/05/2018 07:05:00 Reading Location: [address] Ortho Consult Reading Room COMPREHENSIVE METABOLIC [id number] 05: 31:00 Test Item Value Reference Range Comments TOTAL PROTEIN (BEAKER) 5.7 gm/dL 6.0-8.3 (test nutr=501) ALBUMIN (BEAKER) (test 2.6 g/dL 3.5-5.0 qwxy=9568) ALKALINE PHOSPHATASE 213 U/L 40-150 (BEAKER) (test hlti=612) BILIRUBIN TOTAL (BEAKER) 0.5 mg/dL 0.2-1.2 (test qypq=192) SODIUM (BEAKER) (test 136 meq/L 136-145 bshl=474) POTASSIUM (BEAKER) (test 4.0 meq/L 3.5-5.1 koxr=597) CHLORIDE (BEAKER) (test 103 meq/L 98-107 nypb=876) CO2 (BEAKER) (test 24 meq/L 22-29 eyoe=133) BLOOD UREA NITROGEN 63 mg/dL 7-21 (BEAKER) (test ywjb=371) CREATININE (BEAKER) (test 3.48 mg/dL 0.57-1.25 ofkg=791) GLUCOSE RANDOM (BEAKER) 156 mg/dL 70-105 (test dmwk=266) CALCIUM (BEAKER) (test 8.3 mg/dL 8.4-10.2 yvtk=116) AST (SGOT) (BEAKER) (test 21 U/L 5-34 bnud=468) ALT (SGPT) (BEAKER) (test 30 U/L 6-55 xbvr=416) EGFR (BEAKER) (test 13 mL/min/1.73 sq m ESTIMATED GFR IS NOT qbsb=4181) ACCURATE CREATININE CLEARANCE IN PREDICTING GLOMERULAR FILTRATION RATE. ESTIMATED GFR IS NOT APPLICABLE FOR DIALYSIS PATIENTS. [id number] 05:20:00 Test Item Value Reference Range Comments MAGNESIUM (BEAKER) (test ikxb=257) 1.5 mg/dL 1.6-2.6 [id number] 05:19:00 Test Item Value Reference Range Comments PHOSPHORUS (BEAKER) (test dixu=409) 4.8 mg/dL 2.3-4.7 CBC W/PLT COUNT & AUTO [id number] 04:29:00 Test Item Value Reference Range Comments WHITE BLOOD CELL COUNT (BEAKER) (test bzmg=548) 10.7 K/ L 3.5-10.5 RED BLOOD CELL COUNT (BEAKER) (test xbou=807) 2.90 M/ L 3.93-5.22 HEMOGLOBIN (BEAKER) (test zksu=418) 8.3 GM/DL 11.2-15.7 HEMATOCRIT (BEAKER) (test jmpy=537) 25.9 % 34.1-44.9 MEAN CORPUSCULAR VOLUME (BEAKER) (test fwaz=558) 89.3 fL 79.4-94.8 MEAN CORPUSCULAR HEMOGLOBIN (BEAKER) (test 28.6 pg 25.6-32.2 wahk=471) MEAN CORPUSCULAR HEMOGLOBIN CONC (BEAKER) (test 32.0 GM/DL 32.2-35.5 wqbc=919) RED CELL DISTRIBUTION WIDTH (BEAKER) (test 16.1 % 11.7-14.4 flzt=288) PLATELET COUNT (BEAKER) (test wrqo=117) 130 K/CU MM 150-450 MEAN PLATELET VOLUME (BEAKER) (test btmm=200) 12.3 fL 9.4-12.3 NUCLEATED RED BLOOD CELLS (BEAKER) (test 0 /100 WBC 0-0 cztf=616) NEUTROPHILS RELATIVE PERCENT (BEAKER) (test 86 % mpss=829) LYMPHOCYTES RELATIVE PERCENT (BEAKER) (test 6 % obwk=269) MONOCYTES RELATIVE PERCENT (BEAKER) (test 5 % nugf=284) EOSINOPHILS RELATIVE PERCENT (BEAKER) (test 1 % snlm=982) BASOPHILS RELATIVE PERCENT (BEAKER) (test 0 % hdbb=750) NEUTROPHILS ABSOLUTE COUNT (BEAKER) (test 9.27 K/ L 1.56-6.13 zlqu=487) LYMPHOCYTES ABSOLUTE COUNT (BEAKER) (test 0.63 K/ L 1.18-3.74 mxhc=727) MONOCYTES ABSOLUTE COUNT (BEAKER) (test 0.58 K/ L 0.24-0.36 uinm=975) EOSINOPHILS ABSOLUTE COUNT (BEAKER) (test 0.10 K/ L 0.04-0.36 jdyi=951) BASOPHILS ABSOLUTE COUNT (BEAKER) (test 0.03 K/ L 0.01-0.08 zvuk=649) IMMATURE GRANULOCYTES-RELATIVE PERCENT (BEAKER) 1 % 0-1 (test legj=4421) [id number] 02:30:00 Test Item Value Reference Range Comments PHOSPHORUS (BEAKER) (test gazy=542) 4.3 mg/dL 2.3-4.7 POCT-GLUCOSE [id number] 20:26:00 Test Item Value Reference Range Comments POC-GLUCOSE METER (BEAKER) 186 mg/dL 70-110 TESTED AT [address] (test dzmh=3807) [place] [address] POCT-GLUCOSE [id number] 19:16:00 Test Item Value Reference Range Comments POC-GLUCOSE METER (BEAKER) 134 mg/dL 70-110 TESTED AT [address] (test inca=8943) [place] [id number] BASIC METABOLIC [id number] 18:30:00 Test Item Value Reference Range Comments SODIUM (BEAKER) (test 137 meq/L 136-145 jhxx=334) POTASSIUM (BEAKER) (test 3.9 meq/L 3.5-5.1 akgt=400) CHLORIDE (BEAKER) (test 101 meq/L 98-107 hzfd=126) CO2 (BEAKER) (test 25 meq/L 22-29 nfvh=543) BLOOD UREA NITROGEN 58 mg/dL 7-21 (BEAKER) (test xvml=188) CREATININE (BEAKER) (test 3.02 mg/dL 0.57-1.25 wslf=842) GLUCOSE RANDOM (BEAKER) 118 mg/dL 70-105 (test raml=418) CALCIUM (BEAKER) (test 8.8 mg/dL 8.4-10.2 hjvz=575) EGFR (BEAKER) (test 15 mL/min/1.73 sq m ESTIMATED GFR IS NOT satx=2607) ACCURATE CREATININE CLEARANCE IN PREDICTING GLOMERULAR FILTRATION RATE. ESTIMATED GFR IS NOT APPLICABLE FOR DIALYSIS PATIENTS. [id number] 18:26:00 Test Item Value Reference Range Comments PHOSPHORUS (BEAKER) (test rbbl=183) 4.2 mg/dL 2.3-4.7 [id number] 18:26:00 Test Item Value Reference Range Comments MAGNESIUM (BEAKER) (test mzxb=064) 1.5 mg/dL 1.6-2.6 CALCIUM, [id number] 18:19:00 Test Item Value Reference Range Comments CALCIUM IONIZED (BEAKER) (test xxzz=625) 1.13 mmol/L 1.12-1.27 PH, BLOOD (BEAKER) (test gxsa=1060) 7.40 HEPATITIS B SURFACE [id number] 16:05:00 Test Item Value Reference Range Comments HEPATITIS B SURFACE ANTIGEN (2) (BEAKER) (test Nonreactive Nonreactive acrn=3248) BASIC METABOLIC [id number] 14:26:00 Test Item Value Reference Range Comments SODIUM (BEAKER) (test 135 meq/L 136-145 rwxy=562) POTASSIUM (BEAKER) (test 4.0 meq/L 3.5-5.1 fbbm=580) CHLORIDE (BEAKER) (test 101 meq/L 98-107 rgnd=933) CO2 (BEAKER) (test 22 meq/L 22-29 wukg=039) BLOOD UREA NITROGEN 73 mg/dL 7-21 (BEAKER) (test kkyt=893) CREATININE (BEAKER) (test 3.63 mg/dL 0.57-1.25 jnhj=943) GLUCOSE RANDOM (BEAKER) 130 mg/dL 70-105 (test ubyp=827) CALCIUM (BEAKER) (test 8.1 mg/dL 8.4-10.2 bmst=433) EGFR (BEAKER) (test 13 mL/min/1.73 sq m ESTIMATED GFR IS NOT lqut=7788) ACCURATE CREATININE CLEARANCE IN PREDICTING GLOMERULAR FILTRATION RATE. ESTIMATED GFR IS NOT APPLICABLE FOR DIALYSIS PATIENTS. [id number] 14:16:00 Test Item Value Reference Range Comments PHOSPHORUS (BEAKER) (test kufp=585) 4.9 mg/dL 2.3-4.7 [id number] 14:16:00 Test Item Value Reference Range Comments MAGNESIUM (BEAKER) (test acnw=576) 1.5 mg/dL 1.6-2.6 CALCIUM, [id number] 13:49:00 Test Item Value Reference Range Comments CALCIUM IONIZED (BEAKER) (test dtmf=441) 1.04 mmol/L 1.12-1.27 PH, BLOOD (BEAKER) (test wgxl=7034) 7.38 POCT-GLUCOSE [id number] 12:31:00 Test Item Value Reference Range Comments POC-GLUCOSE METER (BEAKER) 123 mg/dL 70-110 TESTED AT [address] (test fjxz=9515) [facility] [address] EEG AWAKE AND [id number] 11:55:00Reason for exam:-> EncephalopathyShould this be performed at the bedside?->YesEEG REPORT: Kylee Maverick Beavers[facility] Date of EE08/17Date of report: EEG start time: 08:48EEG end time: 09:10EEG #: [id number] No: [id number] ICD Code: #: G93.40 Encephalopathy- unspecifiedCPT Code: #: 72707: 01. EEG awake and drowsy;20-40 minPROCEDURE: EEG [...] etiology. Please correlate clinically.Clinical Fellow: Elly GeeNeurophysiologist: Polo Ruffin POCT-GLUCOSE [id number] 08:45:00 Test Item Value Reference Range Comments POC-GLUCOSE METER (BEAKER) 186 mg/dL 70-110 TESTED AT [address] (test fmpe=7993) [facility] [address] BLOOD GAS, [id number] 07:15:00 Test Item Value Reference Range Comments PH ARTERIAL (BEAKER) (test sqar=803) 7.43 7.35-7.45 PCO2 ARTERIAL (BEAKER) (test gvfp=485) 26 mmHg 35-45 PO2 ARTERIAL (BEAKER) (test cqwx=889) 89 mmHg 80-90 O2 SATURATION ARTERIAL (BEAKER) (test jxlp=611) 97.2 % 96.0-97.0 HCO3 ARTERIAL (BEAKER) (test fjgr=860) 17 mmol/L 21-29 BASE EXCESS ARTERIAL (BEAKER) (test ujki=146) -6.7 mmol/L -2.0-3.0 PATIENT TEMPERATURE (BEAKER) (test ooqx=4928) 37.0 C FIO2 (BEAKER) (test imfz=8019) 50.0 % COMPREHENSIVE METABOLIC [id number] 01:52:00 Test Item Value Reference Range Comments TOTAL PROTEIN (BEAKER) 6.9 gm/dL 6.0-8.3 (test vhhd=869) ALBUMIN (BEAKER) (test 3.1 g/dL 3.5-5.0 rtye=1104) ALKALINE PHOSPHATASE 292 U/L 40-150 (BEAKER) (test jspk=029) BILIRUBIN TOTAL (BEAKER) 0.5 mg/dL 0.2-1.2 (test lmhg=542) SODIUM (BEAKER) (test 131 meq/L 136-145 ncgb=239) POTASSIUM (BEAKER) (test 5.8 meq/L 3.5-5.1 nzwo=321) CHLORIDE (BEAKER) (test 101 meq/L 98-107 rleg=256) CO2 (BEAKER) (test 14 meq/L 22-29 nmmf=206) BLOOD UREA NITROGEN 100 mg/dL 7-21 (BEAKER) (test edxw=955) CREATININE (BEAKER) (test 5.43 mg/dL 0.57-1.25 ebcs=585) GLUCOSE RANDOM (BEAKER) 153 mg/dL 70-105 (test ifou=527) CALCIUM (BEAKER) (test 7.9 mg/dL 8.4-10.2 htze=187) AST (SGOT) (BEAKER) (test 32 U/L 5-34 zpks=679) ALT (SGPT) (BEAKER) (test 33 U/L 6-55 lzox=860) EGFR (BEAKER) (test 8 mL/min/1.73 sq m ESTIMATED GFR IS NOT fdvr=7825) ACCURATE CREATININE CLEARANCE IN PREDICTING GLOMERULAR FILTRATION RATE. ESTIMATED GFR IS NOT APPLICABLE FOR DIALYSIS PATIENTS. COMPREHENSIVE METABOLIC [id number] 01:52:00 Test Item Value Reference Range Comments TOTAL PROTEIN (BEAKER) 6.9 gm/dL 6.0-8.3 (test vysv=126) ALBUMIN (BEAKER) (test 3.1 g/dL 3.5-5.0 euhl=4426) ALKALINE PHOSPHATASE 292 U/L 40-150 (BEAKER) (test cidu=163) BILIRUBIN TOTAL (BEAKER) 0.5 mg/dL 0.2-1.2 (test winr=187) SODIUM (BEAKER) (test 132 meq/L 136-145 vekk=589) POTASSIUM (BEAKER) (test 5.7 meq/L 3.5-5.1 qyyl=934) CHLORIDE (BEAKER) (test 100 meq/L 98-107 oskj=665) CO2 (BEAKER) (test 16 meq/L 22-29 bzsb=606) BLOOD UREA NITROGEN 99 mg/dL 7-21 (BEAKER) (test wibi=902) CREATININE (BEAKER) (test 5.39 mg/dL 0.57-1.25 ndqv=677) GLUCOSE RANDOM (BEAKER) 153 mg/dL 70-105 (test xjcr=056) CALCIUM (BEAKER) (test 8.0 mg/dL 8.4-10.2 lrxq=446) AST (SGOT) (BEAKER) (test 32 U/L 5-34 yivi=193) ALT (SGPT) (BEAKER) (test 35 U/L 6-55 dtjn=963) EGFR (BEAKER) (test 8 mL/min/1.73 sq m ESTIMATED GFR IS NOT hzop=3577) ACCURATE CREATININE CLEARANCE IN PREDICTING GLOMERULAR FILTRATION RATE. ESTIMATED GFR IS NOT APPLICABLE FOR DIALYSIS PATIENTS. CBC W/PLT COUNT & AUTO [id number] 01:41:00 Test Item Value Reference Range Comments WHITE BLOOD CELL COUNT (BEAKER) (test ouek=123) 11.6 K/ L 3.5-10.5 RED BLOOD CELL COUNT (BEAKER) (test yxqw=274) 3.03 M/ L 3.93-5.22 HEMOGLOBIN (BEAKER) (test raxf=537) 8.8 GM/DL 11.2-15.7 HEMATOCRIT (BEAKER) (test vmgt=580) 27.0 % 34.1-44.9 MEAN CORPUSCULAR VOLUME (BEAKER) (test hcnu=281) 89.1 fL 79.4-94.8 MEAN CORPUSCULAR HEMOGLOBIN (BEAKER) (test 29.0 pg 25.6-32.2 jgef=059) MEAN CORPUSCULAR HEMOGLOBIN CONC (BEAKER) (test 32.6 GM/DL 32.2-35.5 qxam=872) RED CELL DISTRIBUTION WIDTH (BEAKER) (test 16.1 % 11.7-14.4 xqev=758) PLATELET COUNT (BEAKER) (test wkps=383) 143 K/CU MM 150-450 MEAN PLATELET VOLUME (BEAKER) (test qmbz=909) 12.5 fL 9.4-12.3 NUCLEATED RED BLOOD CELLS (BEAKER) (test 0 /100 WBC 0-0 trgb=941) NEUTROPHILS RELATIVE PERCENT (BEAKER) (test 86 % gekp=715) LYMPHOCYTES RELATIVE PERCENT (BEAKER) (test 6 % ubvi=900) MONOCYTES RELATIVE PERCENT (BEAKER) (test 4 % amgt=400) EOSINOPHILS RELATIVE PERCENT (BEAKER) (test 0 % ecak=275) BASOPHILS RELATIVE PERCENT (BEAKER) (test 0 % bcpv=696) NEUTROPHILS ABSOLUTE COUNT (BEAKER) (test 10.04 K/ L 1.56-6.13 eghw=722) LYMPHOCYTES ABSOLUTE COUNT (BEAKER) (test 0.66 K/ L 1.18-3.74 ecvw=801) MONOCYTES ABSOLUTE COUNT (BEAKER) (test 0.47 K/ L 0.24-0.36 vwly=092) EOSINOPHILS ABSOLUTE COUNT (BEAKER) (test 0.04 K/ L 0.04-0.36 fdkm=033) BASOPHILS ABSOLUTE COUNT (BEAKER) (test 0.03 K/ L 0.01-0.08 giur=976) IMMATURE GRANULOCYTES-RELATIVE PERCENT (BEAKER) 3 % 0-1 (test brry=7521) HEPATIC FUNCTION [id number] 01:40:00 Test Item Value Reference Range Comments TOTAL PROTEIN (BEAKER) (test qxep=505) 6.9 gm/dL 6.0-8.3 ALBUMIN (BEAKER) (test zvnn=0597) 3.1 g/dL 3.5-5.0 BILIRUBIN TOTAL (BEAKER) (test brke=833) 0.5 mg/dL 0.2-1.2 BILIRUBIN DIRECT (BEAKER) (test rprx=399) 0.3 mg/dL 0.1-0.5 ALKALINE PHOSPHATASE (BEAKER) (test icst=944) 292 U/L 40-150 AST (SGOT) (BEAKER) (test mzbd=369) 32 U/L 5-34 ALT (SGPT) (BEAKER) (test tzvf=252) 35 U/L 6-55 CBC W/PLT COUNT & AUTO [id number] 01:40:00 Test Item Value Reference Range Comments WHITE BLOOD CELL COUNT (BEAKER) (test cokh=957) 11.4 K/ L 3.5-10.5 RED BLOOD CELL COUNT (BEAKER) (test kwrq=651) 3.04 M/ L 3.93-5.22 HEMOGLOBIN (BEAKER) (test bjdq=680) 8.8 GM/DL 11.2-15.7 HEMATOCRIT (BEAKER) (test idsx=487) 27.0 % 34.1-44.9 MEAN CORPUSCULAR VOLUME (BEAKER) (test euuo=556) 88.8 fL 79.4-94.8 MEAN CORPUSCULAR HEMOGLOBIN (BEAKER) (test 28.9 pg 25.6-32.2 ovcu=888) MEAN CORPUSCULAR HEMOGLOBIN CONC (BEAKER) (test 32.6 GM/DL 32.2-35.5 bjid=462) RED CELL DISTRIBUTION WIDTH (BEAKER) (test 16.2 % 11.7-14.4 ulff=447) PLATELET COUNT (BEAKER) (test kmfa=757) 145 K/CU MM 150-450 MEAN PLATELET VOLUME (BEAKER) (test ihin=156) 13.2 fL 9.4-12.3 NUCLEATED RED BLOOD CELLS (BEAKER) (test 0 /100 WBC 0-0 cyty=975) NEUTROPHILS RELATIVE PERCENT (BEAKER) (test 86 % zvah=054) LYMPHOCYTES RELATIVE PERCENT (BEAKER) (test 6 % cnxz=272) MONOCYTES RELATIVE PERCENT (BEAKER) (test 5 % frog=814) EOSINOPHILS RELATIVE PERCENT (BEAKER) (test 0 % mnsb=696) BASOPHILS RELATIVE PERCENT (BEAKER) (test 0 % lvqg=658) NEUTROPHILS ABSOLUTE COUNT (BEAKER) (test 9.87 K/ L 1.56-6.13 derh=219) LYMPHOCYTES ABSOLUTE COUNT (BEAKER) (test 0.64 K/ L 1.18-3.74 kcgb=306) MONOCYTES ABSOLUTE COUNT (BEAKER) (test 0.51 K/ L 0.24-0.36 nztu=696) EOSINOPHILS ABSOLUTE COUNT (BEAKER) (test 0.03 K/ L 0.04-0.36 uyum=014) BASOPHILS ABSOLUTE COUNT (BEAKER) (test 0.02 K/ L 0.01-0.08 rjzi=605) IMMATURE GRANULOCYTES-RELATIVE PERCENT (BEAKER) 3 % 0-1 (test vkro=6663) RAD, CHEST, 1 VIEW, NON [id number] 01:25:00Reason for exam:->tachypnea, hypoxiaShould this be performed [...] right PICC line remains in place. Signed: Kp Engle MDReport Verified Date/Time: 05/04/2018 01:25:17 Reading Location: [address] Reading Room POCT-LACTIC ACID, [id number] 01:17:00 Test Item Value Reference Range Comments POC-LACTIC ACID, ARTERIAL 0.4 mmol/L 0.4-1.3 TESTED [address] [facility] (test bqur=4933) [place] [id number] POCT-BLOOD GASES, [id number] 01:17:00 Test Item Value Reference Range Comments TEMP, CELSIUS-POC (BEAKER) 37.0 (test feci=7704) FIO2-POC (BEAKER) (test TESTED AT [address] mgoj=6731) [place] [address] PH, ARTERIAL-POC (BEAKER) 7.344 7.350-7.450 (test lzqt=8409) PCO2, ARTERIAL-POC (BEAKER) 33.4 mm Hg 35.0-45.0 (test eeui=1547) PO2, ARTERIAL-POC (BEAKER) 72.0 mm Hg 80.0-90.0 (test aoow=2729) SO2, ARTERIAL-POC (BEAKER) 94.0 % 96.0-97.0 (test hudn=3380) HCO3, ARTERIAL-POC (BEAKER) 18.2 meq/L 21.0-29.0 (test ajik=4141) BASE EXCESS, ARTERIAL-POC -7.0 meq/L -2.0-3.0 (BEAKER) (test kykk=4034) [id number] 01:17:00 Test Item Value Reference Range Comments POC-SODIUM (BEAKER) (test 133 meq/L 135-148 TESTED AT [address] xkxl=2053) [place] [id number] 01:17:00 Test Item Value Reference Range Comments POC-POTASSIUM (BEAKER) (test 5.5 meq/L 3.6-5.5 TESTED AT [address] ekoz=5309) [place] [address] [id number] 01:17:00 Test Item Value Reference Range Comments POC-GLUCOSE (BEAKER) (test 157 mg/dL 70-110 TESTED AT [address] ynxd=1081) [place] [address] POCT-CALCIUM [id number] 01:17:00 Test Item Value Reference Range Comments POC-CALCIUM IONIZED (BEAKER) 1.07 mmol/L 1.12-1.27 TESTED AT [address] (test bpqg=0166) [place] [address] [id number] 01:17:00 Test Item Value Reference Range Comments POC-HEMATOCRIT (BEAKER) (test 27 % 36-45 TESTED AT [address] ppkx=1049) [place] [address] [id number] 01:17:00 Test Item Value Reference Range Comments POC-HEMOGLOBIN (BEAKER) 9.2 g/dL 12.0-15.0 TESTED AT [address] (test lvaj=9924) [place] [address]TESTED AT [place] [address] POCT-GLUCOSE [id number] 22:01:00 Test Item Value Reference Range Comments POC-GLUCOSE METER (BEAKER) 142 mg/dL 70-110 TESTED AT [address] (test yxfr=7960) [place] [address] POCT-GLUCOSE [id number] 17:45:00 Test Item Value Reference Range Comments POC-GLUCOSE METER (BEAKER) 82 mg/dL 70-110 TESTED AT [address] (test slcx=5657) [place] [address] POCT-GLUCOSE [id number] 12:42:00 Test Item Value Reference Range Comments POC-GLUCOSE METER (BEAKER) 129 mg/dL 70-110 TESTED AT [address] (test cfnn=7376) [place] [address] BASIC METABOLIC [id number] 11:59:00 Test Item Value Reference Range Comments SODIUM (BEAKER) (test 134 meq/L 136-145 yjay=005) POTASSIUM (BEAKER) (test 4.8 meq/L 3.5-5.1 aaay=371) CHLORIDE (BEAKER) (test 101 meq/L 98-107 igff=848) CO2 (BEAKER) (test 21 meq/L 22-29 hrop=766) BLOOD UREA NITROGEN 96 mg/dL 7-21 (BEAKER) (test bmco=548) CREATININE (BEAKER) (test 4.93 mg/dL 0.57-1.25 mnvj=543) GLUCOSE RANDOM (BEAKER) 116 mg/dL 70-105 (test dpkj=959) CALCIUM (BEAKER) (test 8.1 mg/dL 8.4-10.2 wcca=950) EGFR (BEAKER) (test 9 mL/min/1.73 sq m ESTIMATED GFR IS NOT bqsa=8801) ACCURATE CREATININE CLEARANCE IN PREDICTING GLOMERULAR FILTRATION RATE. ESTIMATED GFR IS NOT APPLICABLE FOR DIALYSIS PATIENTS. HEPATIC FUNCTION [id number] 11:59:00 Test Item Value Reference Range Comments TOTAL PROTEIN (BEAKER) (test hgsa=944) 6.3 gm/dL 6.0-8.3 ALBUMIN (BEAKER) (test htjz=4045) 2.8 g/dL 3.5-5.0 BILIRUBIN TOTAL (BEAKER) (test ursh=377) 0.4 mg/dL 0.2-1.2 BILIRUBIN DIRECT (BEAKER) (test kzlu=168) 0.2 mg/dL 0.1-0.5 ALKALINE PHOSPHATASE (BEAKER) (test janm=677) 220 U/L 40-150 AST (SGOT) (BEAKER) (test bdvt=023) 19 U/L 5-34 ALT (SGPT) (BEAKER) (test feck=659) 26 U/L 6-55 CBC W/PLT COUNT & AUTO [id number] 11:41:00 Test Item Value Reference Range Comments WHITE BLOOD CELL COUNT (BEAKER) (test bxcr=699) 11.5 K/ L 3.5-10.5 RED BLOOD CELL COUNT (BEAKER) (test yxbb=592) 3.08 M/ L 3.93-5.22 HEMOGLOBIN (BEAKER) (test siwm=968) 8.9 GM/DL 11.2-15.7 HEMATOCRIT (BEAKER) (test urxo=223) 27.1 % 34.1-44.9 MEAN CORPUSCULAR VOLUME (BEAKER) (test enxi=583) 88.0 fL 79.4-94.8 MEAN CORPUSCULAR HEMOGLOBIN (BEAKER) (test 28.9 pg 25.6-32.2 eggc=308) MEAN CORPUSCULAR HEMOGLOBIN CONC (BEAKER) (test 32.8 GM/DL 32.2-35.5 pcwd=136) RED CELL DISTRIBUTION WIDTH (BEAKER) (test 15.9 % 11.7-14.4 wmjn=136) PLATELET COUNT (BEAKER) (test wfhc=265) 151 K/CU MM 150-450 MEAN PLATELET VOLUME (BEAKER) (test kvzk=419) 12.1 fL 9.4-12.3 NUCLEATED RED BLOOD CELLS (BEAKER) (test 0 /100 WBC 0-0 cech=621) NEUTROPHILS RELATIVE PERCENT (BEAKER) (test 84 % aczr=350) LYMPHOCYTES RELATIVE PERCENT (BEAKER) (test 7 % hfod=624) MONOCYTES RELATIVE PERCENT (BEAKER) (test 5 % mqgh=897) EOSINOPHILS RELATIVE PERCENT (BEAKER) (test 2 % lrgb=278) BASOPHILS RELATIVE PERCENT (BEAKER) (test 0 % pzdo=959) NEUTROPHILS ABSOLUTE COUNT (BEAKER) (test 9.61 K/ L 1.56-6.13 slhm=083) LYMPHOCYTES ABSOLUTE COUNT (BEAKER) (test 0.84 K/ L 1.18-3.74 uzgt=128) MONOCYTES ABSOLUTE COUNT (BEAKER) (test 0.59 K/ L 0.24-0.36 nmjb=308) EOSINOPHILS ABSOLUTE COUNT (BEAKER) (test 0.18 K/ L 0.04-0.36 vrmi=608) BASOPHILS ABSOLUTE COUNT (BEAKER) (test 0.03 K/ L 0.01-0.08 nhxi=225) IMMATURE GRANULOCYTES-RELATIVE PERCENT (BEAKER) 2 % 0-1 (test ageh=4756) RAD, CHEST, 1 VIEW, NON [id number] 11:17:00Reason for exam:->sobShould this be performed at [...] MDReport Verified Date/Time: 05/03/2018 11:17:19 Reading Location: [facility] Radiology Reading Room POCT- GLUCOSE [id number] 08:52:00 Test Item Value Reference Range Comments POC-GLUCOSE METER (BEAKER) 136 mg/dL 70-110 TESTED AT [address] (test xlyd=7171) [facility] [address] U/S, RENAL, [id number] 08:07:00Reason for exam:->acute renal failureShould this be [...] catheter. Impression: Unremarkable renal ultrasound examination. Signed: Wililam Heath MDReport Verified Date/Time: 05/03/2018 08: 07:49 Reading Location: [facility] [id number] Ultrasound Reading Room SODIUM, RANDOM [id number] 23:21:00 Test Item Value Reference Range Comments SODIUM URINE (BEAKER) (test aggm=098) 21 meq/L Reference Range: No NormalsCREATININE, RANDOM [id number] 23:19:00 Test Item Value Reference Range Comments CREATININE URINE (BEAKER) (test tiwa=140) 141.1 mg/dL Reference Range: No NormalsUREA NITROGEN, RANDOM [id number] 23:19:00 Test Item Value Reference Range Comments UREA NITROGEN URINE (BEAKER) (test spcr=604) 231 mg/dL Reference Range: No NormalsURINALYSIS W/ [id number] 23:10:00 Test Item Value Reference Range Comments COLOR (BEAKER) (test tfhx=225) Yellow CLARITY (BEAKER) (test fvco=748) Cloudy SPECIFIC GRAVITY UA (BEAKER) (test kwml=378) 1.017 1.001-1.035 PH UA (BEAKER) (test tefb=373) 5.5 5.0-8.0 PROTEIN UA (BEAKER) (test ilvq=328) 200 mg/dL Negative GLUCOSE UA (BEAKER) (test dhfg=108) Negative Negative KETONES UA (BEAKER) (test vkfa=676) Negative Negative BILIRUBIN UA (BEAKER) (test ehlc=638) Negative Negative BLOOD UA (BEAKER) (test hwaa=837) Moderate Negative NITRITE UA (BEAKER) (test yito=138) Negative Negative LEUKOCYTE ESTERASE UA (BEAKER) (test mmzw=016) Large Negative UROBILINOGEN UA (BEAKER) (test tgdf=182) 0.2 mg/dL 0.2-1.0 RBC UA (BEAKER) (test ortk=303) 106 /HPF WBC UA (BEAKER) (test oejo=886) > /HPF MUCUS (BEAKER) (test qetg=2909) Rare SQUAMOUS EPITHELIAL (BEAKER) (test nyxg=860) 3 /HPF YEAST (BEAKER) (test yosp=3546) Few SOURCE(BEAKER) (test ltku=5494) Urine, [place] POCT-GLUCOSE [id number] 20:52:00 Test Item Value Reference Range Comments POC-GLUCOSE METER (BEAKER) 71 mg/dL 70-[address] [facility] [address] (test elug=3716) [facility] [address] BASIC METABOLIC [id number] 20:12:00 Test Item Value Reference Range Comments SODIUM (BEAKER) (test 134 meq/L 136-145 bqsa=223) POTASSIUM (BEAKER) (test 4.5 meq/L 3.5-5.1 qfyr=608) CHLORIDE (BEAKER) (test 102 meq/L 98-107 zswg=253) CO2 (BEAKER) (test 20 meq/L 22-29 nvnu=965) BLOOD UREA NITROGEN 91 mg/dL 7-21 (BEAKER) (test youp=323) CREATININE (BEAKER) (test 4.52 mg/dL 0.57-1.25 busi=181) GLUCOSE RANDOM (BEAKER) 69 mg/dL 70-105 (test dkwt=639) CALCIUM (BEAKER) (test 7.9 mg/dL 8.4-10.2 oobw=020) EGFR (BEAKER) (test 10 mL/min/1.73 sq m ESTIMATED GFR IS NOT ohqa=0764) ACCURATE CREATININE CLEARANCE IN PREDICTING GLOMERULAR FILTRATION RATE. ESTIMATED GFR IS NOT APPLICABLE FOR DIALYSIS PATIENTS. [id number] 20:04:00 Test Item Value Reference Range Comments AMMONIA (BEAKER) (test ugvj=910) 28 mol/L 18-72 CBC W/PLT COUNT & AUTO [id number] 19:59:00 Test Item Value Reference Range Comments WHITE BLOOD CELL COUNT (BEAKER) (test zghw=729) 9.1 K/ L 3.5-10.5 RED BLOOD CELL COUNT (BEAKER) (test pyns=126) 2.81 M/ L 3.93-5.22 HEMOGLOBIN (BEAKER) (test xvbb=820) 8.1 GM/DL 11.2-15.7 HEMATOCRIT (BEAKER) (test wwny=642) 25.2 % 34.1-44.9 MEAN CORPUSCULAR VOLUME (BEAKER) (test dxbh=100) 89.7 fL 79.4-94.8 MEAN CORPUSCULAR HEMOGLOBIN (BEAKER) (test 28.8 pg 25.6-32.2 heec=148) MEAN CORPUSCULAR HEMOGLOBIN CONC (BEAKER) (test 32.1 GM/DL 32.2-35.5 zyzo=831) RED CELL DISTRIBUTION WIDTH (BEAKER) (test 16.0 % 11.7-14.4 iwbl=547) PLATELET COUNT (BEAKER) (test jhzh=050) 133 K/CU MM 150-450 MEAN PLATELET VOLUME (BEAKER) (test uffc=477) 12.4 fL 9.4-12.3 NUCLEATED RED BLOOD CELLS (BEAKER) (test 0 /100 WBC 0-0 qosx=938) NEUTROPHILS RELATIVE PERCENT (BEAKER) (test 82 % gjzk=934) LYMPHOCYTES RELATIVE PERCENT (BEAKER) (test 8 % edhd=708) MONOCYTES RELATIVE PERCENT (BEAKER) (test 7 % cbdi=709) EOSINOPHILS RELATIVE PERCENT (BEAKER) (test 2 % dunw=574) BASOPHILS RELATIVE PERCENT (BEAKER) (test 0 % ddcd=208) NEUTROPHILS ABSOLUTE COUNT (BEAKER) (test 7.50 K/ L 1.56-6.13 pvxl=610) LYMPHOCYTES ABSOLUTE COUNT (BEAKER) (test 0.70 K/ L 1.18-3.74 gdrt=273) MONOCYTES ABSOLUTE COUNT (BEAKER) (test 0.59 K/ L 0.24-0.36 fzyk=143) EOSINOPHILS ABSOLUTE COUNT (BEAKER) (test 0.19 K/ L 0.04-0.36 lnvc=605) BASOPHILS ABSOLUTE COUNT (BEAKER) (test 0.01 K/ L 0.01-0.08 gxib=597) IMMATURE GRANULOCYTES-RELATIVE PERCENT (BEAKER) 1 % 0-1 (test yclp=5057) POCT-GLUCOSE [id number] 17:36:00 Test Item Value Reference Range Comments POC-GLUCOSE METER (BEAKER) 85 mg/dL 70-110 TESTED AT [address] (test scen=8834) [facility] [address] POCT-GLUCOSE [id number] 12:16:00 Test Item Value Reference Range Comments POC-GLUCOSE METER (BEAKER) 133 mg/dL 70-110 TESTED AT [address] (test sfmt=0915) [place] [address] POCT-GLUCOSE [id number] 09:17:00 Test Item Value Reference Range Comments POC-GLUCOSE METER (BEAKER) 102 mg/dL 70-110 TESTED AT [address] (test baig=3793) [place] [address] BASIC METABOLIC [id number] 05:51:00 Test Item Value Reference Range Comments SODIUM (BEAKER) (test 132 meq/L 136-145 dlly=697) POTASSIUM (BEAKER) (test 4.6 meq/L 3.5-5.1 vkso=566) CHLORIDE (BEAKER) (test 100 meq/L 98-107 xdge=492) CO2 (BEAKER) (test 19 meq/L 22-29 dbig=568) BLOOD UREA NITROGEN 89 mg/dL 7-21 (BEAKER) (test krmc=118) CREATININE (BEAKER) (test 4.37 mg/dL 0.57-1.25 abra=176) GLUCOSE RANDOM (BEAKER) 63 mg/dL 70-105 (test jvls=309) CALCIUM (BEAKER) (test 7.9 mg/dL 8.4-10.2 gjcj=368) EGFR (BEAKER) (test 10 mL/min/1.73 sq m ESTIMATED GFR IS NOT ftvg=7970) ACCURATE CREATININE CLEARANCE IN PREDICTING GLOMERULAR FILTRATION RATE. ESTIMATED GFR IS NOT APPLICABLE FOR DIALYSIS PATIENTS. B-TYPE NATRIURETIC FACTOR (BNP)2018-05-02 05:32:00 Test Item Value Reference Range Comments B-TYPE NATRIURETIC PEPTIDE (BEAKER) (test 658 pg/mL 0-100 aepx=986) CBC W/PLT COUNT & AUTO [id number] 05:16:00 Test Item Value Reference Range Comments WHITE BLOOD CELL COUNT (BEAKER) (test nxlw=047) 9.0 K/ L 3.5-10.5 RED BLOOD CELL COUNT (BEAKER) (test rgzg=419) 2.78 M/ L 3.93-5.22 HEMOGLOBIN (BEAKER) (test byfy=398) 8.1 GM/DL 11.2-15.7 HEMATOCRIT (BEAKER) (test vgql=142) 24.6 % 34.1-44.9 MEAN CORPUSCULAR VOLUME (BEAKER) (test asbf=107) 88.5 fL 79.4-94.8 MEAN CORPUSCULAR HEMOGLOBIN (BEAKER) (test 29.1 pg 25.6-32.2 drso=711) MEAN CORPUSCULAR HEMOGLOBIN CONC (BEAKER) (test 32.9 GM/DL 32.2-35.5 ynxn=370) RED CELL DISTRIBUTION WIDTH (BEAKER) (test 15.9 % 11.7-14.4 wubu=108) PLATELET COUNT (BEAKER) (test sfqd=302) 143 K/CU MM 150-450 MEAN PLATELET VOLUME (BEAKER) (test uhnk=592) 12.3 fL 9.4-12.3 NUCLEATED RED BLOOD CELLS (BEAKER) (test 0 /100 WBC 0-0 vmwn=325) NEUTROPHILS RELATIVE PERCENT (BEAKER) (test 81 % lzuh=598) LYMPHOCYTES RELATIVE PERCENT (BEAKER) (test 9 % fess=974) MONOCYTES RELATIVE PERCENT (BEAKER) (test 8 % mcze=939) EOSINOPHILS RELATIVE PERCENT (BEAKER) (test 2 % ozzw=209) BASOPHILS RELATIVE PERCENT (BEAKER) (test 0 % uqwl=684) NEUTROPHILS ABSOLUTE COUNT (BEAKER) (test 7.24 K/ L 1.56-6.13 xixp=514) LYMPHOCYTES ABSOLUTE COUNT (BEAKER) (test 0.79 K/ L 1.18-3.74 tbjk=246) MONOCYTES ABSOLUTE COUNT (BEAKER) (test 0.69 K/ L 0.24-0.36 oeal=348) EOSINOPHILS ABSOLUTE COUNT (BEAKER) (test 0.18 K/ L 0.04-0.36 kkzv=613) BASOPHILS ABSOLUTE COUNT (BEAKER) (test 0.03 K/ L 0.01-0.08 qcne=288) IMMATURE GRANULOCYTES-RELATIVE PERCENT (BEAKER) 1 % 0-1 (test xdap=5125) POCT-GLUCOSE [id number] 20:35:00 Test Item Value Reference Range Comments POC-GLUCOSE METER (BEAKER) 128 mg/dL 70-110 TESTED AT [address] (test fpqq=3632) [place] [id number] POCT-GLUCOSE [id number] 16:35:00 Test Item Value Reference Range Comments POC-GLUCOSE METER (BEAKER) 172 mg/dL 70-110 TESTED AT [address] (test cqjj=7044) [place] [id number] POCT-GLUCOSE [id number] 14:05:00 Test Item Value Reference Range Comments POC-GLUCOSE METER (BEAKER) 200 mg/dL 70-110 TESTED AT [address] (test aklh=5862) [place] [id number] POCT-GLUCOSE [id number] 08:13:00 Test Item Value Reference Range Comments POC-GLUCOSE METER (BEAKER) 86 mg/dL 70-[address] [facility] [address] [facility] (test vzmq=4262) [facility] [address] BASIC METABOLIC [id number] 07:14:00 Test Item Value Reference Range Comments SODIUM (BEAKER) (test 133 meq/L 136-145 jazf=995) POTASSIUM (BEAKER) (test 4.4 meq/L 3.5-5.1 wkcz=952) CHLORIDE (BEAKER) (test 101 meq/L 98-107 xtim=926) CO2 (BEAKER) (test 20 meq/L 22-29 zmon=726) BLOOD UREA NITROGEN 83 mg/dL 7-21 (BEAKER) (test cgiz=424) CREATININE (BEAKER) (test 3.85 mg/dL 0.57-1.25 vdpv=339) GLUCOSE RANDOM (BEAKER) 74 mg/dL 70-105 (test cglj=610) CALCIUM (BEAKER) (test 8.1 mg/dL 8.4-10.2 klzp=910) EGFR (BEAKER) (test 12 mL/min/1.73 sq m ESTIMATED GFR IS NOT zsjm=1656) ACCURATE CREATININE CLEARANCE IN PREDICTING GLOMERULAR FILTRATION RATE. ESTIMATED GFR IS NOT APPLICABLE FOR DIALYSIS PATIENTS. IRON, TIBC, % SAT. (WITHOUT FERRITIN)2018-05-01 06:53:00 Test Item Value Reference Range Comments IRON (BEAKER) (test ovey=243) 19.0 ug/dL 40.0-160.0 TOTAL IRON BINDING CAPACITY (BEAKER) (test 125 ug/dL 250-450 npae=228) IRON % SATURATION (2) (BEAKER) (test xngg=2580) 15 % 20-55 CBC W/PLT COUNT & AUTO [id number] 06:30:00 Test Item Value Reference Range Comments WHITE BLOOD CELL COUNT (BEAKER) (test hfqo=073) 8.2 K/ L 3.5-10.5 RED BLOOD CELL COUNT (BEAKER) (test zylx=250) 2.72 M/ L 3.93-5.22 HEMOGLOBIN (BEAKER) (test qsuh=796) 8.0 GM/DL 11.2-15.7 HEMATOCRIT (BEAKER) (test mvnn=100) 24.3 % 34.1-44.9 MEAN CORPUSCULAR VOLUME (BEAKER) (test zonc=126) 89.3 fL 79.4-94.8 MEAN CORPUSCULAR HEMOGLOBIN (BEAKER) (test 29.4 pg 25.6-32.2 jykk=966) MEAN CORPUSCULAR HEMOGLOBIN CONC (BEAKER) (test 32.9 GM/DL 32.2-35.5 vtke=856) RED CELL DISTRIBUTION WIDTH (BEAKER) (test 16.3 % 11.7-14.4 amgi=270) PLATELET COUNT (BEAKER) (test byin=156) 147 K/CU MM 150-450 MEAN PLATELET VOLUME (BEAKER) (test lyqr=267) 12.7 fL 9.4-12.3 NUCLEATED RED BLOOD CELLS (BEAKER) (test 0 /100 WBC 0-0 yayy=715) NEUTROPHILS RELATIVE PERCENT (BEAKER) (test 76 % pbzz=350) LYMPHOCYTES RELATIVE PERCENT (BEAKER) (test 12 % upgg=541) MONOCYTES RELATIVE PERCENT (BEAKER) (test 9 % xdwh=093) EOSINOPHILS RELATIVE PERCENT (BEAKER) (test 3 % fvot=038) BASOPHILS RELATIVE PERCENT (BEAKER) (test 0 % kaja=524) NEUTROPHILS ABSOLUTE COUNT (BEAKER) (test 6.20 K/ L 1.56-6.13 kzig=182) LYMPHOCYTES ABSOLUTE COUNT (BEAKER) (test 0.96 K/ L 1.18-3.74 eend=624) MONOCYTES ABSOLUTE COUNT (BEAKER) (test 0.71 K/ L 0.24-0.36 ulpf=490) EOSINOPHILS ABSOLUTE COUNT (BEAKER) (test 0.21 K/ L 0.04-0.36 xbor=863) BASOPHILS ABSOLUTE COUNT (BEAKER) (test 0.02 K/ L 0.01-0.08 yxyo=676) IMMATURE GRANULOCYTES-RELATIVE PERCENT (BEAKER) 1 % 0-1 (test umrl=4256) POCT-GLUCOSE [id number] 05:42:00 Test Item Value Reference Range Comments POC-GLUCOSE METER (BEAKER) 87 mg/dL 70-[address] [facility] [address] [facility] (test iaaa=8653) [facility] [address] POCT-GLUCOSE [id number] 20:48:00 Test Item Value Reference Range Comments POC-GLUCOSE METER (BEAKER) 65 mg/dL 70-110 TESTED AT [address] (test ovfr=1830) [facility] [address] SODIUM, RANDOM [id number] 19:53:00 Test Item Value Reference Range Comments SODIUM URINE (BEAKER) (test ggpt=965) < meq/L Reference Range: No NormalsCREATININE, RANDOM [id number] 19:50:00 Test Item Value Reference Range Comments CREATININE URINE (BEAKER) (test nnib=346) 138.1 mg/dL Reference Range: No NormalsUREA NITROGEN, RANDOM [id number] 19:50:00 Test Item Value Reference Range Comments UREA NITROGEN URINE (BEAKER) (test vafr=673) 305 mg/dL Reference Range: No NormalsPOCT-GLUCOSE [id number] 16:47:00 Test Item Value Reference Range Comments POC-GLUCOSE METER (BEAKER) 142 mg/dL 70-110 TESTED AT [address] (test sute=8704) [place] [id number] EOSINOPHIL SMEAR, [id number] 16:01:00 Test Item Value Reference Range Comments EOSINOPHIL SMEAR, URINE (BEAKER) (test No EOS seen No EOS seen crav=5290) URINALYSIS W/ [id number] 15:27:00 Test Item Value Reference Range Comments COLOR (BEAKER) (test nixw=917) Yellow CLARITY (BEAKER) (test noud=415) Cloudy SPECIFIC GRAVITY UA (BEAKER) (test jmmf=322) 1.015 1.001-1.035 PH UA (BEAKER) (test asso=062) 5.0 5.0-8.0 PROTEIN UA (BEAKER) (test zyfd=039) 100 mg/dL Negative GLUCOSE UA (BEAKER) (test dpjs=922) 70 mg/dL Negative KETONES UA (BEAKER) (test vnij=522) Negative Negative BILIRUBIN UA (BEAKER) (test tmgn=201) Negative Negative BLOOD UA (BEAKER) (test clns=966) Negative Negative NITRITE UA (BEAKER) (test uqej=535) Negative Negative LEUKOCYTE ESTERASE UA (BEAKER) (test emzf=034) Small Negative UROBILINOGEN UA (BEAKER) (test yldg=216) 0.2 mg/dL 0.2-1.0 RBC UA (BEAKER) (test ksdm=434) 5 /HPF WBC UA (BEAKER) (test irlf=922) 29 /HPF SQUAMOUS EPITHELIAL (BEAKER) (test smyt=448) 5 /HPF HYALINE CASTS (BEAKER) (test fvhu=219) 4 /LPF CASTS (BEAKER) (test ybmp=2289) 7 /LPF CRYSTALS, URINE (BEAKER) (test ybhp=0921) Moderate YEAST (BEAKER) (test dvmc=9722) Rare SOURCE(BEAKER) (test rhwk=2293) POCT-GLUCOSE [id number] 13:24:00 Test Item Value Reference Range Comments POC-GLUCOSE METER (BEAKER) 198 mg/dL 70-110 TESTED AT [address] (test umif=0233) [place] [address] POCT-GLUCOSE [id number] 07:49:00 Test Item Value Reference Range Comments POC-GLUCOSE METER (BEAKER) 109 mg/dL 70-110 TESTED AT [address] (test lncp=8314) [place] [address] BASIC METABOLIC [id number] 04:29:00 Test Item Value Reference Range Comments SODIUM (BEAKER) (test 133 meq/L 136-145 dczn=692) POTASSIUM (BEAKER) (test 4.2 meq/L 3.5-5.1 msjc=528) CHLORIDE (BEAKER) (test 101 meq/L 98-107 ajhc=896) CO2 (BEAKER) (test 21 meq/L 22-29 dyjq=664) BLOOD UREA NITROGEN 76 mg/dL 7-21 (BEAKER) (test oxuo=603) CREATININE (BEAKER) (test 3.01 mg/dL 0.57-1.25 hsxd=190) GLUCOSE RANDOM (BEAKER) 111 mg/dL 70-105 (test jvbx=238) CALCIUM (BEAKER) (test 8.4 mg/dL 8.4-10.2 wjyj=025) EGFR (BEAKER) (test 16 mL/min/1.73 sq m ESTIMATED GFR IS NOT shoe=6541) ACCURATE CREATININE CLEARANCE IN PREDICTING GLOMERULAR FILTRATION RATE. ESTIMATED GFR IS NOT APPLICABLE FOR DIALYSIS PATIENTS. CBC W/PLT COUNT & AUTO [id number] 04:06:00 Test Item Value Reference Range Comments WHITE BLOOD CELL COUNT (BEAKER) (test anho=146) 8.9 K/ L 3.5-10.5 RED BLOOD CELL COUNT (BEAKER) (test ziha=497) 2.75 M/ L 3.93-5.22 HEMOGLOBIN (BEAKER) (test jytn=654) 8.1 GM/DL 11.2-15.7 HEMATOCRIT (BEAKER) (test rfxs=942) 24.5 % 34.1-44.9 MEAN CORPUSCULAR VOLUME (BEAKER) (test juft=033) 89.1 fL 79.4-94.8 MEAN CORPUSCULAR HEMOGLOBIN (BEAKER) (test 29.5 pg 25.6-32.2 okku=038) MEAN CORPUSCULAR HEMOGLOBIN CONC (BEAKER) (test 33.1 GM/DL 32.2-35.5 mtvf=428) RED CELL DISTRIBUTION WIDTH (BEAKER) (test 16.3 % 11.7-14.4 qiux=947) PLATELET COUNT (BEAKER) (test vvuv=172) 151 K/CU MM 150-450 MEAN PLATELET VOLUME (BEAKER) (test eknt=797) 11.9 fL 9.4-12.3 NUCLEATED RED BLOOD CELLS (BEAKER) (test 0 /100 WBC 0-0 brti=929) NEUTROPHILS RELATIVE PERCENT (BEAKER) (test 79 % jbqo=093) LYMPHOCYTES RELATIVE PERCENT (BEAKER) (test 9 % vtff=538) MONOCYTES RELATIVE PERCENT (BEAKER) (test 8 % uorh=353) EOSINOPHILS RELATIVE PERCENT (BEAKER) (test 2 % arwa=037) BASOPHILS RELATIVE PERCENT (BEAKER) (test 0 % thci=702) NEUTROPHILS ABSOLUTE COUNT (BEAKER) (test 7.03 K/ L 1.56-6.13 pgzb=133) LYMPHOCYTES ABSOLUTE COUNT (BEAKER) (test 0.83 K/ L 1.18-3.74 talq=892) MONOCYTES ABSOLUTE COUNT (BEAKER) (test 0.73 K/ L 0.24-0.36 tmyf=211) EOSINOPHILS ABSOLUTE COUNT (BEAKER) (test 0.21 K/ L 0.04-0.36 xtfh=497) BASOPHILS ABSOLUTE COUNT (BEAKER) (test 0.04 K/ L 0.01-0.08 hqre=583) IMMATURE GRANULOCYTES-RELATIVE PERCENT (BEAKER) 1 % 0-1 (test xnem=0292) POCT-GLUCOSE [id number] 21:35:00 Test Item Value Reference Range Comments POC-GLUCOSE METER (BEAKER) 136 mg/dL 70-110 TESTED AT [address] (test wwrc=5291) [facility] [address] RAD, CHEST, 1 VIEW, NON [id number] 18:00:00Reason for exam:->SOBShould this be performed at [...] right PICCline tip overlies the SVC. Signed: Kp Engle MDReport Verified Date/Time: 2017 18:00:36 Reading Location: [address] Reading Room POCT- GLUCOSE [id number] 17:00:00 Test Item Value Reference Range Comments POC-GLUCOSE METER (BEAKER) 229 mg/dL 70-110 TESTED AT [address] (test yxgc=1515) [place] [id number] POCT-GLUCOSE [id number] 11:35:00 Test Item Value Reference Range Comments POC-GLUCOSE METER (BEAKER) 180 mg/dL 70-110 TESTED AT [address] (test fxml=5201) [place] [id number] POCT-GLUCOSE [id number] 08:35:00 Test Item Value Reference Range Comments POC-GLUCOSE METER (BEAKER) 210 mg/dL 70-110 TESTED AT [address] (test juoi=2095) [place] [id number] BASIC METABOLIC [id number] 06:02:00 Test Item Value Reference Range Comments SODIUM (BEAKER) (test 133 meq/L 136-145 jqbc=662) POTASSIUM (BEAKER) (test 4.1 meq/L 3.5-5.1 hwqx=966) CHLORIDE (BEAKER) (test 102 meq/L 98-107 nnuz=646) CO2 (BEAKER) (test 21 meq/L 22-29 aujz=397) BLOOD UREA NITROGEN 67 mg/dL 7-21 (BEAKER) (test uanh=039) CREATININE (BEAKER) (test 2.40 mg/dL 0.57-1.25 sjfk=379) GLUCOSE RANDOM (BEAKER) 212 mg/dL 70-105 (test kyqq=161) CALCIUM (BEAKER) (test 8.1 mg/dL 8.4-10.2 aajo=141) EGFR (BEAKER) (test 20 mL/min/1.73 sq m ESTIMATED GFR IS NOT rytv=0290) ACCURATE CREATININE CLEARANCE IN PREDICTING GLOMERULAR FILTRATION RATE. ESTIMATED GFR IS NOT APPLICABLE FOR DIALYSIS PATIENTS. POCT-GLUCOSE [id number] 22:11:00 Test Item Value Reference Range Comments POC-GLUCOSE METER (BEAKER) 178 mg/dL 70-110 TESTED AT [address] (test wuli=8704) [place] [address] POCT-GLUCOSE [id number] 17:00:00 Test Item Value Reference Range Comments POC-GLUCOSE METER (BEAKER) 121 mg/dL 70-110 TESTED AT [address] (test daer=2473) [place] [address] POCT-GLUCOSE [id number] 12:17:00 Test Item Value Reference Range Comments POC-GLUCOSE METER (BEAKER) 230 mg/dL 70-110 TESTED AT [address] (test ssne=6981) [place] [address] POCT-GLUCOSE [id number] 08:00:00 Test Item Value Reference Range Comments POC-GLUCOSE METER (BEAKER) 160 mg/dL 70-110 TESTED AT [address] (test ugsg=4539) [place] [id number] BASIC METABOLIC [id number] 05:41:00 Test Item Value Reference Range Comments SODIUM (BEAKER) (test 134 meq/L 136-145 xctm=285) POTASSIUM (BEAKER) (test 4.1 meq/L 3.5-5.1 tpys=007) CHLORIDE (BEAKER) (test 105 meq/L 98-107 apan=913) CO2 (BEAKER) (test 19 meq/L 22-29 ihel=787) BLOOD UREA NITROGEN 53 mg/dL 7-21 (BEAKER) (test ouim=625) CREATININE (BEAKER) (test 1.88 mg/dL 0.57-1.25 nngp=633) GLUCOSE RANDOM (BEAKER) 137 mg/dL 70-105 (test ehnr=432) CALCIUM (BEAKER) (test 8.7 mg/dL 8.4-10.2 kcte=436) EGFR (BEAKER) (test 27 mL/min/1.73 sq m ESTIMATED GFR IS NOT tnux=5076) ACCURATE CREATININE CLEARANCE IN PREDICTING GLOMERULAR FILTRATION RATE. ESTIMATED GFR IS NOT APPLICABLE FOR DIALYSIS PATIENTS. CBC W/PLT COUNT & AUTO [id number] 05:03:00 Test Item Value Reference Range Comments WHITE BLOOD CELL COUNT (BEAKER) (test flto=938) 10.5 K/ L 3.5-10.5 RED BLOOD CELL COUNT (BEAKER) (test flba=807) 2.99 M/ L 3.93-5.22 HEMOGLOBIN (BEAKER) (test yvbf=469) 8.7 GM/DL 11.2-15.7 HEMATOCRIT (BEAKER) (test cfua=164) 26.8 % 34.1-44.9 MEAN CORPUSCULAR VOLUME (BEAKER) (test gcyw=153) 89.6 fL 79.4-94.8 MEAN CORPUSCULAR HEMOGLOBIN (BEAKER) (test 29.1 pg 25.6-32.2 qqhg=467) MEAN CORPUSCULAR HEMOGLOBIN CONC (BEAKER) (test 32.5 GM/DL 32.2-35.5 xadf=195) RED CELL DISTRIBUTION WIDTH (BEAKER) (test 16.5 % 11.7-14.4 iqsv=162) PLATELET COUNT (BEAKER) (test uqbm=423) 185 K/CU MM 150-450 MEAN PLATELET VOLUME (BEAKER) (test qqzz=274) 12.2 fL 9.4-12.3 NUCLEATED RED BLOOD CELLS (BEAKER) (test 0 /100 WBC 0-0 ydkh=215) NEUTROPHILS RELATIVE PERCENT (BEAKER) (test 80 % psvu=394) LYMPHOCYTES RELATIVE PERCENT (BEAKER) (test 9 % jvbb=840) MONOCYTES RELATIVE PERCENT (BEAKER) (test 10 % azyw=818) EOSINOPHILS RELATIVE PERCENT (BEAKER) (test 1 % urtq=978) BASOPHILS RELATIVE PERCENT (BEAKER) (test 0 % kgym=968) NEUTROPHILS ABSOLUTE COUNT (BEAKER) (test 8.39 K/ L 1.56-6.13 fmcs=979) LYMPHOCYTES ABSOLUTE COUNT (BEAKER) (test 0.94 K/ L 1.18-3.74 aaih=920) MONOCYTES ABSOLUTE COUNT (BEAKER) (test 0.99 K/ L 0.24-0.36 bhof=314) EOSINOPHILS ABSOLUTE COUNT (BEAKER) (test 0.05 K/ L 0.04-0.36 bkca=454) BASOPHILS ABSOLUTE COUNT (BEAKER) (test 0.03 K/ L 0.01-0.08 pcct=249) IMMATURE GRANULOCYTES-RELATIVE PERCENT (BEAKER) 1 % 0-1 (test bzki=0691) CT, [id number] 03:51:00Reason for exam:->recurrent no GI loss anemia [...] and hysterectomy. Trace density ascites, nonspecific. Signed: Kp Engle MDReport Verified Date/Time: 04/28/2018 03:51:18 Reading Location : [address] Reading Room POCT-GLUCOSE [id number] 20:43:00 Test Item Value Reference Range Comments POC-GLUCOSE METER (BEAKER) 92 mg/dL 70-110 TESTED AT [address] (test wrxp=9794) [place] [id number] POCT-GLUCOSE [id number] 17:35:00 Test Item Value Reference Range Comments POC-GLUCOSE METER (BEAKER) 195 mg/dL 70-110 TESTED AT [address] (test rnee=8759) [facility] [address] PROTEIN ELECTROPHORESIS, [id number] 12:33:00 Test Item Value Reference Range Comments ALBUMIN FRACTION (BEAKER) 2.7 g/dL 3.5-5.5 (test dxuv=463) ALPHA 1 FRACTION (BEAKER) 0.4 g/dL 0.2-0.4 (test vare=127) ALPHA 2 FRACTION (BEAKER) 1.1 g/dL 0.5-0.9 (test dalf=283) BETA FRACTION (BEAKER) (test 1.0 g/dL 0.6-1.1 hkso=206) GAMMA GLOBULIN FRACTION 1.2 g/dL 0.7-1.7 (BEAKER) (test cwqd=354) INTERPRETATION-119 (BEAKER) Pattern suggestive of renal (test bzph=2159) protein loss coupled with acute and chronic inflammation. No monoclonal bands detected. [id number] (BEAKER) Gina Meredith MD (test btgh=0416) (electronic signature) PROTEIN TOTAL SERUM, SPEP 6.4 gm/dL 6.0-8.3 (BEAKER) (test rylj=6282) POCT-GLUCOSE [id number] 11:28:00 Test Item Value Reference Range Comments POC-GLUCOSE METER (BEAKER) 224 mg/dL 70-[address] [facility] [address] [facility] (test qnfq=8706) [facility] [address] POCT-GLUCOSE [id number] 09:01:00 Test Item Value Reference Range Comments POC-GLUCOSE METER (BEAKER) 203 mg/dL 70-[address] [facility] [address] [facility] (test ipjz=6182) [facility] [address] BASIC METABOLIC [id number] 07:26:00 Test Item Value Reference Range Comments SODIUM (BEAKER) (test 132 meq/L 136-145 xicr=957) POTASSIUM (BEAKER) (test 3.9 meq/L 3.5-5.1 sfsg=345) CHLORIDE (BEAKER) (test 103 meq/L 98-107 ouhq=992) CO2 (BEAKER) (test 19 meq/L 22-29 qhid=143) BLOOD UREA NITROGEN 49 mg/dL 7-21 (BEAKER) (test gpqy=032) CREATININE (BEAKER) (test 1.86 mg/dL 0.57-1.25 qesr=364) GLUCOSE RANDOM (BEAKER) 204 mg/dL 70-105 (test tcwv=285) CALCIUM (BEAKER) (test 8.4 mg/dL 8.4-10.2 smmt=675) EGFR (BEAKER) (test 27 mL/min/1.73 sq m ESTIMATED GFR IS NOT ypqr=8459) ACCURATE CREATININE CLEARANCE IN PREDICTING GLOMERULAR FILTRATION RATE. ESTIMATED GFR IS NOT APPLICABLE FOR DIALYSIS PATIENTS. CBC W/PLT COUNT & AUTO [id number] 07:11:00 Test Item Value Reference Range Comments WHITE BLOOD CELL COUNT (BEAKER) (test ogrk=047) 9.3 K/ L 3.5-10.5 RED BLOOD CELL COUNT (BEAKER) (test dngu=899) 2.86 M/ L 3.93-5.22 HEMOGLOBIN (BEAKER) (test gnkm=661) 8.3 GM/DL 11.2-15.7 HEMATOCRIT (BEAKER) (test zivx=636) 25.8 % 34.1-44.9 MEAN CORPUSCULAR VOLUME (BEAKER) (test teyx=676) 90.2 fL 79.4-94.8 MEAN CORPUSCULAR HEMOGLOBIN (BEAKER) (test 29.0 pg 25.6-32.2 puvg=675) MEAN CORPUSCULAR HEMOGLOBIN CONC (BEAKER) (test 32.2 GM/DL 32.2-35.5 ddls=419) RED CELL DISTRIBUTION WIDTH (BEAKER) (test 16.8 % 11.7-14.4 fwqo=557) PLATELET COUNT (BEAKER) (test svjr=828) 191 K/CU MM 150-450 MEAN PLATELET VOLUME (BEAKER) (test uiau=515) 11.8 fL 9.4-12.3 NUCLEATED RED BLOOD CELLS (BEAKER) (test 0 /100 WBC 0-0 wcyh=905) NEUTROPHILS RELATIVE PERCENT (BEAKER) (test 77 % lroh=132) LYMPHOCYTES RELATIVE PERCENT (BEAKER) (test 11 % wcrl=020) MONOCYTES RELATIVE PERCENT (BEAKER) (test 10 % wxei=216) EOSINOPHILS RELATIVE PERCENT (BEAKER) (test 0 % cgvd=940) BASOPHILS RELATIVE PERCENT (BEAKER) (test 0 % lmga=768) NEUTROPHILS ABSOLUTE COUNT (BEAKER) (test 7.20 K/ L 1.56-6.13 rdtb=876) LYMPHOCYTES ABSOLUTE COUNT (BEAKER) (test 1.05 K/ L 1.18-3.74 phft=334) MONOCYTES ABSOLUTE COUNT (BEAKER) (test 0.92 K/ L 0.24-0.36 lbww=947) EOSINOPHILS ABSOLUTE COUNT (BEAKER) (test 0.03 K/ L 0.04-0.36 deas=499) BASOPHILS ABSOLUTE COUNT (BEAKER) (test 0.03 K/ L 0.01-0.08 vefe=205) IMMATURE GRANULOCYTES-RELATIVE PERCENT (BEAKER) 1 % 0-1 (test famw=1548) POCT-GLUCOSE [id number] 20:45:00 Test Item Value Reference Range Comments POC-GLUCOSE METER (BEAKER) 72 mg/dL 70-110 TESTED AT [address] (test wvna=1474) [facility] [address] POCT-GLUCOSE [id number] 18:17:00 Test Item Value Reference Range Comments POC-GLUCOSE METER (BEAKER) 140 mg/dL 70-110 TESTED AT [address] (test wmha=3857) [facility] [address] POCT-GLUCOSE [id number] 14:42:00 Test Item Value Reference Range Comments POC-GLUCOSE METER (BEAKER) 104 mg/dL 70-[address] [facility] [address] [facility] (test hjzi=7271) [facility] [address] POCT-GLUCOSE [id number] 10:54:00 Test Item Value Reference Range Comments POC-GLUCOSE METER (BEAKER) 93 mg/dL 70-110 TESTED AT [address] (test cekd=0016) [facility] [address] POCT-GLUCOSE [id number] 08:06:00 Test Item Value Reference Range Comments POC-GLUCOSE METER (BEAKER) 136 mg/dL 70-110 TESTED AT [address] (test mcwe=1269) [facility] [address] BASIC METABOLIC [id number] 07:34:00 Test Item Value Reference Range Comments SODIUM (BEAKER) (test 133 meq/L 136-145 owpr=294) POTASSIUM (BEAKER) (test 3.8 meq/L 3.5-5.1 pans=629) CHLORIDE (BEAKER) (test 105 meq/L 98-107 wvcl=220) CO2 (BEAKER) (test 20 meq/L 22-29 pzup=657) BLOOD UREA NITROGEN 47 mg/dL 7-21 (BEAKER) (test egta=590) CREATININE (BEAKER) (test 1.64 mg/dL 0.57-1.25 zsgd=729) GLUCOSE RANDOM (BEAKER) 111 mg/dL 70-105 (test hhkn=214) CALCIUM (BEAKER) (test 8.9 mg/dL 8.4-10.2 cqmc=828) EGFR (BEAKER) (test 31 mL/min/1.73 sq m ESTIMATED GFR IS NOT erwq=8077) ACCURATE CREATININE CLEARANCE IN PREDICTING GLOMERULAR FILTRATION RATE. ESTIMATED GFR IS NOT APPLICABLE FOR DIALYSIS PATIENTS. CBC W/PLT COUNT & AUTO [id number] 06:19:00 Test Item Value Reference Range Comments WHITE BLOOD CELL COUNT (BEAKER) (test ovap=493) 7.7 K/ L 3.5-10.5 RED BLOOD CELL COUNT (BEAKER) (test sela=220) 2.93 M/ L 3.93-5.22 HEMOGLOBIN (BEAKER) (test tetu=978) 8.8 GM/DL 11.2-15.7 HEMATOCRIT (BEAKER) (test nuok=311) 26.4 % 34.1-44.9 MEAN CORPUSCULAR VOLUME (BEAKER) (test wmht=811) 90.1 fL 79.4-94.8 MEAN CORPUSCULAR HEMOGLOBIN (BEAKER) (test 30.0 pg 25.6-32.2 upzb=374) MEAN CORPUSCULAR HEMOGLOBIN CONC (BEAKER) (test 33.3 GM/DL 32.2-35.5 uffx=417) RED CELL DISTRIBUTION WIDTH (BEAKER) (test 16.9 % 11.7-14.4 cmgp=384) PLATELET COUNT (BEAKER) (test yabz=977) 197 K/CU MM 150-450 MEAN PLATELET VOLUME (BEAKER) (test woro=695) 11.8 fL 9.4-12.3 NUCLEATED RED BLOOD CELLS (BEAKER) (test 0 /100 WBC 0-0 qzev=248) NEUTROPHILS RELATIVE PERCENT (BEAKER) (test 73 % yryt=263) LYMPHOCYTES RELATIVE PERCENT (BEAKER) (test 13 % kqwa=905) MONOCYTES RELATIVE PERCENT (BEAKER) (test 12 % fuys=039) EOSINOPHILS RELATIVE PERCENT (BEAKER) (test 1 % xfio=240) BASOPHILS RELATIVE PERCENT (BEAKER) (test 0 % ccrf=957) NEUTROPHILS ABSOLUTE COUNT (BEAKER) (test 5.64 K/ L 1.56-6.13 ibdt=870) LYMPHOCYTES ABSOLUTE COUNT (BEAKER) (test 0.99 K/ L 1.18-3.74 hwbm=596) MONOCYTES ABSOLUTE COUNT (BEAKER) (test 0.93 K/ L 0.24-0.36 hssp=934) EOSINOPHILS ABSOLUTE COUNT (BEAKER) (test 0.08 K/ L 0.04-0.36 kugt=457) BASOPHILS ABSOLUTE COUNT (BEAKER) (test 0.02 K/ L 0.01-0.08 rrhz=250) IMMATURE GRANULOCYTES-RELATIVE PERCENT (BEAKER) 1 % 0-1 (test dacb=4023) POCT-GLUCOSE [id number] 22:25:00 Test Item Value Reference Range Comments POC-GLUCOSE METER (BEAKER) 272 mg/dL 70-[address] [facility] [address] (test hpij=1690) [facility] [address] POCT-GLUCOSE [id number] 22:25:00 Test Item Value Reference Range Comments POC-GLUCOSE METER (BEAKER) 232 mg/dL 70-110 TESTED AT [address] (test vdgr=5859) [place] [id number] POCT-GLUCOSE [id number] 16:09:00 Test Item Value Reference Range Comments POC-GLUCOSE METER (BEAKER) 77 mg/dL 70-110 TESTED AT [address] (test mrdf=6391) [place] [address] POCT-GLUCOSE [id number] 11:33:00 Test Item Value Reference Range Comments POC-GLUCOSE METER (BEAKER) 154 mg/dL 70-110 TESTED AT [address] (test tukr=9322) [place] [address] VRE [id number] 09:16:00 Test Item Value Reference Range Comments CULTURE (BEAKER) (test No vancomycin-resistant ecrw=6050) Enterococcus isolated POCT-GLUCOSE [id number] 07:47:00 Test Item Value Reference Range Comments POC-GLUCOSE METER (BEAKER) 130 mg/dL 70-110 TESTED AT [address] (test ucqk=8067) [place] [address] BASIC METABOLIC [id number] 05:38:00 Test Item Value Reference Range Comments SODIUM (BEAKER) (test 133 meq/L 136-145 kaht=181) POTASSIUM (BEAKER) (test 4.1 meq/L 3.5-5.1 vmlh=530) CHLORIDE (BEAKER) (test 105 meq/L 98-107 sunm=291) CO2 (BEAKER) (test 17 meq/L 22-29 xvkg=409) BLOOD UREA NITROGEN 56 mg/dL 7-21 (BEAKER) (test bfnt=154) CREATININE (BEAKER) (test 1.68 mg/dL 0.57-1.25 eowd=428) GLUCOSE RANDOM (BEAKER) 115 mg/dL 70-105 (test gsoh=147) CALCIUM (BEAKER) (test 8.7 mg/dL 8.4-10.2 xyde=350) EGFR (BEAKER) (test 30 mL/min/1.73 sq m ESTIMATED GFR IS NOT rybw=3854) ACCURATE CREATININE CLEARANCE IN PREDICTING GLOMERULAR FILTRATION RATE. ESTIMATED GFR IS NOT APPLICABLE FOR DIALYSIS PATIENTS. CBC W/PLT COUNT & AUTO [id number] 05:19:00 Test Item Value Reference Range Comments WHITE BLOOD CELL COUNT (BEAKER) (test jqft=342) 9.8 K/ L 3.5-10.5 RED BLOOD CELL COUNT (BEAKER) (test ybsw=981) 3.09 M/ L 3.93-5.22 HEMOGLOBIN (BEAKER) (test gjgp=929) 9.0 GM/DL 11.2-15.7 HEMATOCRIT (BEAKER) (test imgz=345) 27.6 % 34.1-44.9 MEAN CORPUSCULAR VOLUME (BEAKER) (test cmne=365) 89.3 fL 79.4-94.8 MEAN CORPUSCULAR HEMOGLOBIN (BEAKER) (test 29.1 pg 25.6-32.2 rdzl=346) MEAN CORPUSCULAR HEMOGLOBIN CONC (BEAKER) (test 32.6 GM/DL 32.2-35.5 grud=854) RED CELL DISTRIBUTION WIDTH (BEAKER) (test 17.5 % 11.7-14.4 lzdu=851) PLATELET COUNT (BEAKER) (test xeqb=405) 226 K/CU MM 150-450 MEAN PLATELET VOLUME (BEAKER) (test wumm=494) 12.3 fL 9.4-12.3 NUCLEATED RED BLOOD CELLS (BEAKER) (test 0 /100 WBC 0-0 irnz=232) NEUTROPHILS RELATIVE PERCENT (BEAKER) (test 81 % mdyx=124) LYMPHOCYTES RELATIVE PERCENT (BEAKER) (test 8 % rite=779) MONOCYTES RELATIVE PERCENT (BEAKER) (test 10 % fsav=747) EOSINOPHILS RELATIVE PERCENT (BEAKER) (test 1 % qlrt=630) BASOPHILS RELATIVE PERCENT (BEAKER) (test 0 % vkyt=400) NEUTROPHILS ABSOLUTE COUNT (BEAKER) (test 7.89 K/ L 1.56-6.13 ugoa=783) LYMPHOCYTES ABSOLUTE COUNT (BEAKER) (test 0.73 K/ L 1.18-3.74 fetb=388) MONOCYTES ABSOLUTE COUNT (BEAKER) (test 0.93 K/ L 0.24-0.36 abia=746) EOSINOPHILS ABSOLUTE COUNT (BEAKER) (test 0.13 K/ L 0.04-0.36 fkfa=473) BASOPHILS ABSOLUTE COUNT (BEAKER) (test 0.03 K/ L 0.01-0.08 tbam=524) IMMATURE GRANULOCYTES-RELATIVE PERCENT (BEAKER) 1 % 0-1 (test uyzp=1295) EOSINOPHIL SMEAR, [id number] 04:30:00 Test Item Value Reference Range Comments EOSINOPHIL SMEAR, URINE (BEAKER) (test No EOS seen No EOS seen gbhm=5108) CREATININE, RANDOM [id number] 00:00:00 Test Item Value Reference Range Comments CREATININE URINE (BEAKER) (test chol=136) 29.1 mg/dL Reference Range: No NormalsPROTEIN, RANDOM [id number] 00:00:00 Test Item Value Reference Range Comments PROTEIN, URINE (BEAKER) (test zmmw=3495) 53 mg/dL 0-14 SODIUM, RANDOM [id number] 00:00:00 Test Item Value Reference Range Comments SODIUM URINE (BEAKER) (test podz=410) 66 meq/L Reference Range: No NormalsURINALYSIS W/ [id number] 23:53:00 Test Item Value Reference Range Comments COLOR (BEAKER) (test jcya=365) Yellow CLARITY (BEAKER) (test kpbn=613) Clear SPECIFIC GRAVITY UA (BEAKER) (test txrj=434) 1.008 1.001-1.035 PH UA (BEAKER) (test nkvo=705) 5.0 5.0-8.0 PROTEIN UA (BEAKER) (test ctxm=915) 50 mg/dL Negative GLUCOSE UA (BEAKER) (test rmfs=369) Negative Negative KETONES UA (BEAKER) (test jscr=459) Negative Negative BILIRUBIN UA (BEAKER) (test jiry=435) Negative Negative BLOOD UA (BEAKER) (test xwfn=784) Negative Negative NITRITE UA (BEAKER) (test vity=935) Negative Negative LEUKOCYTE ESTERASE UA (BEAKER) (test werm=754) Negative Negative UROBILINOGEN UA (BEAKER) (test yzpc=312) 0.2 mg/dL 0.2-1.0 RBC UA (BEAKER) (test srnq=870) < /HPF WBC UA (BEAKER) (test aebz=343) 6 /HPF BACTERIA (BEAKER) (test zguk=734) Rare MUCUS (BEAKER) (test jepc=9228) Rare SQUAMOUS EPITHELIAL (BEAKER) (test duro=002) < /HPF AMORPHOUS CRYSTALS (BEAKER) (test flur=8381) Rare SOURCE(BEAKER) (test xhpg=2847) Urine, Voided POCT-GLUCOSE [id number] 21:26:00 Test Item Value Reference Range Comments POC-GLUCOSE METER (BEAKER) 109 mg/dL 70-110 TESTED AT [address] (test vedb=3392) [place] [address] POCT-GLUCOSE [id number] 16:36:00 Test Item Value Reference Range Comments POC-GLUCOSE METER (BEAKER) 152 mg/dL 70-110 TESTED AT [address] (test bren=5050) [place] [address] [id number] 15:42:00 Test Item Value Reference Range Comments FERRITIN (BEAKER) (test fwxa=092) 580 ng/mL 5-275 IRON, TIBC, % SAT. (WITHOUT FERRITIN)[id number] 15:21:00 Test Item Value Reference Range Comments IRON (BEAKER) (test esob=474) 19.0 ug/dL 40.0-160.0 TOTAL IRON BINDING CAPACITY (BEAKER) (test 154 ug/dL 250-450 tmes=912) IRON % SATURATION (2) (BEAKER) (test uzyd=6287) 12 % 20-55 LACTATE DEHYDROGENASE (LDH)2018-04-24 15:19:00 Test Item Value Reference Range Comments LACTATE DEHYDROGENASE (BEAKER) (test dwxj=055) 204 U/L 125-220 PERIPHERAL BLOOD SMEAR - HOLD [id number] 15:17:00 Test Item Value Reference Range Comments PERIPHERAL SMEAR SAVE (BEAKER) (test weks=7446) saved RETICULOCYTE [id number] 15:04:00 Test Item Value Reference Range Comments RETICULOCYTE COUNT PCT (BEAKER) (test rzma=478) 1.7 % 0.5-1.7 POCT-GLUCOSE [id number] 12:07:00 Test Item Value Reference Range Comments POC-GLUCOSE METER (BEAKER) 181 mg/dL 70-110 TESTED AT [address] (test yetu=6037) [place] [address] WOUND CULTURE + GRAM [id number] 10:26:00 Test Item Value Reference Range Comments CULTURE (BEAKER) (test MORGANELLA MORGANII 1+ Morganella morganii iful=7817) Amikacin (test code=1) Ampicillin + Sulbactam (test code=6) Aztreonam (test code=32) Cefepime (test code=51) Cefoxitin (test code=68) Ceftazidime (test code=27) Ceftriaxone (test code=52) Ertapenem (test code=38) Gentamicin (test code=18) Levofloxacin (test code=22) Meropenem (test code=34) Nitrofurantoin (test code=23) Piperacillin + Tazobactam (test code=29) Tetracycline (test code=2) Tobramycin (test code=25) Trimethoprim + Sulfamethoxazole (test code=47) CULTURE (BEAKER) (test METHICILLIN RESISTANT 4+ Methicillin sqvn=9752) STAPHYLOCOCCUS AUREUS resistant Staphylococcus aureus Clindamycin (test code=10) Erythromycin (test code=4) Linezolid (test code=40) Nitrofurantoin (test code=23) Oxacillin (test code=14) Rifampin (test code=43) Tetracycline (test code=2) Trimethoprim + Sulfamethoxazole (test code=47) Vancomycin (test code=13) GRAM STAIN RESULT <1+ WBCs (BEAKER) (test uzku=6213) GRAM STAIN RESULT 2+ gram negative rods (BEAKER) (test ugyg=924083) GRAM STAIN RESULT <1+ gram positive rods (BEAKER) (test akmn=857363) 4+ Skin floraPOCT-GLUCOSE [id number] 07:47:00 Test Item Value Reference Range Comments POC-GLUCOSE METER (BEAKER) 128 mg/dL 70-110 TESTED AT [address] (test azms=6599) [facility] [address] [id number] 04:27:00 Test Item Value Reference Range Comments PHOSPHORUS (BEAKER) (test biki=916) 3.6 mg/dL 2.3-4.7 [id number] 04:27:00 Test Item Value Reference Range Comments MAGNESIUM (BEAKER) (test wmhy=355) 1.7 mg/dL 1.6-2.6 COMPREHENSIVE METABOLIC [id number] 04:27:00 Test Item Value Reference Range Comments TOTAL PROTEIN (BEAKER) 6.4 gm/dL 6.0-8.3 (test wzyb=465) ALBUMIN (BEAKER) (test 3.1 g/dL 3.5-5.0 ujxc=3711) ALKALINE PHOSPHATASE 182 U/L 40-150 (BEAKER) (test pvnf=723) BILIRUBIN TOTAL (BEAKER) 0.5 mg/dL 0.2-1.2 (test xzty=056) SODIUM (BEAKER) (test 133 meq/L 136-145 gtci=357) POTASSIUM (BEAKER) (test 4.5 meq/L 3.5-5.1 uocj=535) CHLORIDE (BEAKER) (test 106 meq/L 98-107 oifl=011) CO2 (BEAKER) (test 18 meq/L 22-29 tqkg=185) BLOOD UREA NITROGEN 53 mg/dL 7-21 (BEAKER) (test cpyq=696) CREATININE (BEAKER) (test 1.54 mg/dL 0.57-1.25 nome=978) GLUCOSE RANDOM (BEAKER) 128 mg/dL 70-105 (test oueo=434) CALCIUM (BEAKER) (test 8.8 mg/dL 8.4-10.2 gyyj=265) AST (SGOT) (BEAKER) (test 12 U/L 5-34 axpr=567) ALT (SGPT) (BEAKER) (test 31 U/L 6-55 pspt=128) EGFR (BEAKER) (test 34 mL/min/1.73 sq m ESTIMATED GFR IS NOT sfci=4385) ACCURATE CREATININE CLEARANCE IN PREDICTING GLOMERULAR FILTRATION RATE. ESTIMATED GFR IS NOT APPLICABLE FOR DIALYSIS PATIENTS. CALCIUM, [id number] 04:21:00 Test Item Value Reference Range Comments CALCIUM IONIZED (BEAKER) (test ygir=011) 1.09 mmol/L 1.12-1.27 PH, BLOOD (BEAKER) (test zzot=9277) 7.43 CBC W/PLT COUNT & AUTO [id number] 04:02:00 Test Item Value Reference Range Comments WHITE BLOOD CELL COUNT (BEAKER) (test qgrg=566) 10.1 K/ L 3.5-10.5 RED BLOOD CELL COUNT (BEAKER) (test hwbc=831) 2.34 M/ L 3.93-5.22 HEMOGLOBIN (BEAKER) (test rciq=828) 7.0 GM/DL 11.2-15.7 HEMATOCRIT (BEAKER) (test peeo=532) 21.9 % 34.1-44.9 MEAN CORPUSCULAR VOLUME (BEAKER) (test yblb=120) 93.6 fL 79.4-94.8 MEAN CORPUSCULAR HEMOGLOBIN (BEAKER) (test 29.9 pg 25.6-32.2 oddn=724) MEAN CORPUSCULAR HEMOGLOBIN CONC (BEAKER) (test 32.0 GM/DL 32.2-35.5 gxxj=266) RED CELL DISTRIBUTION WIDTH (BEAKER) (test 16.9 % 11.7-14.4 aqhq=454) PLATELET COUNT (BEAKER) (test hsid=527) 192 K/CU MM 150-450 MEAN PLATELET VOLUME (BEAKER) (test uqah=233) 12.3 fL 9.4-12.3 NUCLEATED RED BLOOD CELLS (BEAKER) (test 0 /100 WBC 0-0 lvgw=089) NEUTROPHILS RELATIVE PERCENT (BEAKER) (test 78 % cfgb=995) LYMPHOCYTES RELATIVE PERCENT (BEAKER) (test 12 % vrox=822) MONOCYTES RELATIVE PERCENT (BEAKER) (test 9 % nuex=709) EOSINOPHILS RELATIVE PERCENT (BEAKER) (test 1 % qklh=859) BASOPHILS RELATIVE PERCENT (BEAKER) (test 0 % hdto=718) NEUTROPHILS ABSOLUTE COUNT (BEAKER) (test 7.91 K/ L 1.56-6.13 ghys=160) LYMPHOCYTES ABSOLUTE COUNT (BEAKER) (test 1.17 K/ L 1.18-3.74 bplt=544) MONOCYTES ABSOLUTE COUNT (BEAKER) (test 0.89 K/ L 0.24-0.36 gobn=361) EOSINOPHILS ABSOLUTE COUNT (BEAKER) (test 0.07 K/ L 0.04-0.36 junh=981) BASOPHILS ABSOLUTE COUNT (BEAKER) (test 0.03 K/ L 0.01-0.08 bnck=429) IMMATURE GRANULOCYTES-RELATIVE PERCENT (BEAKER) 1 % 0-1 (test ottn=6348) POCT-GLUCOSE [id number] 22:21:00 Test Item Value Reference Range Comments POC-GLUCOSE METER (BEAKER) 100 mg/dL 70-[address] [facility] [address] (test seqi=1140) [facility] [address] POCT-GLUCOSE [id number] 16:43:00 Test Item Value Reference Range Comments POC-GLUCOSE METER (BEAKER) 200 mg/dL 70-[address] [facility] [address] (test zyeu=7646) [facility] [address] POCT-GLUCOSE [id number] 12:27:00 Test Item Value Reference Range Comments POC-GLUCOSE METER (BEAKER) 311 mg/dL 70-[address] [facility] [address] (test jtiz=4771) [facility] [address] POCT-GLUCOSE [id number] 09:00:00 Test Item Value Reference Range Comments POC-GLUCOSE METER (BEAKER) 132 mg/dL 70-110 TESTED AT [address] (test ozfw=8095) [facility] [address] WOUND CULTURE + GRAM [id number] 07:52:00 Test Item Value Reference Range Comments CULTURE (BEAKER) (test ENTEROCOCCUS SPECIES 2+ Enterococcus species pvnj=9513) Ampicillin (test code=26) Linezolid (test code=40) Tetracycline (test code=2) Vancomycin (test code=13) GRAM STAIN RESULT 2+ WBCs (BEAKER) (test xwsk=7922) GRAM STAIN RESULT No organisms seen (BEAKER) (test biog=194114) GRAM STAIN RESULT No organisms seen (BEAKER) (test whdy=248297) Organism(s) under evaluationBASIC METABOLIC [id number] 06:53:00 Test Item Value Reference Range Comments SODIUM (BEAKER) (test 136 meq/L 136-145 dqge=535) POTASSIUM (BEAKER) (test 4.5 meq/L 3.5-5.1 yvcg=910) CHLORIDE (BEAKER) (test 108 meq/L 98-107 cojr=478) CO2 (BEAKER) (test 18 meq/L 22-29 bwjv=571) BLOOD UREA NITROGEN 55 mg/dL 7-21 (BEAKER) (test szzs=533) CREATININE (BEAKER) (test 1.58 mg/dL 0.57-1.25 pggb=146) GLUCOSE RANDOM (BEAKER) 109 mg/dL 70-105 (test jagm=615) CALCIUM (BEAKER) (test 8.7 mg/dL 8.4-10.2 qtzj=024) EGFR (BEAKER) (test 33 mL/min/1.73 sq m ESTIMATED GFR IS NOT xdfh=3410) ACCURATE CREATININE CLEARANCE IN PREDICTING GLOMERULAR FILTRATION RATE. ESTIMATED GFR IS NOT APPLICABLE FOR DIALYSIS PATIENTS. CBC W/PLT COUNT & AUTO [id number] 06:46:00 Test Item Value Reference Range Comments WHITE BLOOD CELL COUNT (BEAKER) (test iujq=684) 11.5 K/ L 3.5-10.5 RED BLOOD CELL COUNT (BEAKER) (test mbri=571) 2.57 M/ L 3.93-5.22 HEMOGLOBIN (BEAKER) (test jnin=924) 7.6 GM/DL 11.2-15.7 HEMATOCRIT (BEAKER) (test iofk=116) 23.9 % 34.1-44.9 MEAN CORPUSCULAR VOLUME (BEAKER) (test pxbk=824) 93.0 fL 79.4-94.8 MEAN CORPUSCULAR HEMOGLOBIN (BEAKER) (test 29.6 pg 25.6-32.2 tppu=137) MEAN CORPUSCULAR HEMOGLOBIN CONC (BEAKER) (test 31.8 GM/DL 32.2-35.5 lllf=223) RED CELL DISTRIBUTION WIDTH (BEAKER) (test 17.2 % 11.7-14.4 gkzi=584) PLATELET COUNT (BEAKER) (test pmbw=493) 193 K/CU MM 150-450 MEAN PLATELET VOLUME (BEAKER) (test cjab=668) 12.3 fL 9.4-12.3 NUCLEATED RED BLOOD CELLS (BEAKER) (test 0 /100 WBC 0-0 ejoo=352) NEUTROPHILS RELATIVE PERCENT (BEAKER) (test 83 % tiem=132) LYMPHOCYTES RELATIVE PERCENT (BEAKER) (test 9 % sxld=692) MONOCYTES RELATIVE PERCENT (BEAKER) (test 7 % azsi=271) EOSINOPHILS RELATIVE PERCENT (BEAKER) (test 0 % qbij=228) BASOPHILS RELATIVE PERCENT (BEAKER) (test 0 % ykep=229) NEUTROPHILS ABSOLUTE COUNT (BEAKER) (test 9.57 K/ L 1.56-6.13 hbqz=544) LYMPHOCYTES ABSOLUTE COUNT (BEAKER) (test 0.98 K/ L 1.18-3.74 skpc=185) MONOCYTES ABSOLUTE COUNT (BEAKER) (test 0.80 K/ L 0.24-0.36 bfpv=547) EOSINOPHILS ABSOLUTE COUNT (BEAKER) (test 0.05 K/ L 0.04-0.36 hlrc=025) BASOPHILS ABSOLUTE COUNT (BEAKER) (test 0.03 K/ L 0.01-0.08 klfc=024) IMMATURE GRANULOCYTES-RELATIVE PERCENT (BEAKER) 0 % 0-1 (test shsr=8644) POCT-GLUCOSE [id number] 18:24:00 Test Item Value Reference Range Comments POC-GLUCOSE METER (BEAKER) 206 mg/dL 70-110 TESTED AT [address] (test ruas=5939) [place] [address] POCT-GLUCOSE [id number] 13:58:00 Test Item Value Reference Range Comments POC-GLUCOSE METER (BEAKER) 80 mg/dL 70-110 TESTED AT [address] (test axgd=8744) [place] [address] HEMOGLOBIN [id number] 13:25:00 Test Item Value Reference Range Comments HEMOGLOBIN A1C (BEAKER) (test zczo=920) 7.2 % 4.3-6.1 POCT-GLUCOSE [id number] 12:34:00 Test Item Value Reference Range Comments POC-GLUCOSE METER (BEAKER) 119 mg/dL 70-110 TESTED AT [address] (test opst=4855) [place] [address] TSH/FREE T4 IF [id number] 12:08:00 Test Item Value Reference Range Comments THYROID STIMULATING HORMONE (BEAKER) (test 1.04 uIU/mL 0.35-4.94 zyus=139) POCT-GLUCOSE [id number] 08:16:00 Test Item Value Reference Range Comments POC-GLUCOSE METER (BEAKER) 153 mg/dL 70-110 TESTED AT [address] (test bebl=6786) [place] [address] CBC W/PLT COUNT & AUTO [id number] 07:29:00 Test Item Value Reference Range Comments WHITE BLOOD CELL COUNT (BEAKER) (test ebuv=049) 10.8 K/ L 3.5-10.5 RED BLOOD CELL COUNT (BEAKER) (test kudn=671) 2.66 M/ L 3.93-5.22 HEMOGLOBIN (BEAKER) (test embc=220) 7.9 GM/DL 11.2-15.7 HEMATOCRIT (BEAKER) (test lxnz=522) 24.7 % 34.1-44.9 MEAN CORPUSCULAR VOLUME (BEAKER) (test ymsu=174) 92.9 fL 79.4-94.8 MEAN CORPUSCULAR HEMOGLOBIN (BEAKER) (test 29.7 pg 25.6-32.2 reqa=094) MEAN CORPUSCULAR HEMOGLOBIN CONC (BEAKER) (test 32.0 GM/DL 32.2-35.5 sgew=643) RED CELL DISTRIBUTION WIDTH (BEAKER) (test 17.7 % 11.7-14.4 bjve=149) PLATELET COUNT (BEAKER) (test iavx=053) 217 K/CU MM 150-450 MEAN PLATELET VOLUME (BEAKER) (test yuhn=741) 12.6 fL 9.4-12.3 NUCLEATED RED BLOOD CELLS (BEAKER) (test 0 /100 WBC 0-0 pqlv=531) NEUTROPHILS RELATIVE PERCENT (BEAKER) (test 79 % gvxv=829) LYMPHOCYTES RELATIVE PERCENT (BEAKER) (test 8 % siqs=763) MONOCYTES RELATIVE PERCENT (BEAKER) (test 9 % dspz=924) EOSINOPHILS RELATIVE PERCENT (BEAKER) (test 3 % dbvr=171) BASOPHILS RELATIVE PERCENT (BEAKER) (test 1 % zmip=229) NEUTROPHILS ABSOLUTE COUNT (BEAKER) (test 8.52 K/ L 1.56-6.13 wgqv=314) LYMPHOCYTES ABSOLUTE COUNT (BEAKER) (test 0.90 K/ L 1.18-3.74 qwvo=467) MONOCYTES ABSOLUTE COUNT (BEAKER) (test 0.92 K/ L 0.24-0.36 nvee=605) EOSINOPHILS ABSOLUTE COUNT (BEAKER) (test 0.31 K/ L 0.04-0.36 grgm=539) BASOPHILS ABSOLUTE COUNT (BEAKER) (test 0.05 K/ L 0.01-0.08 idve=662) IMMATURE GRANULOCYTES-RELATIVE PERCENT (BEAKER) 1 % 0-1 (test ytlj=4524) [id number] 06:06:00 Test Item Value Reference Range Comments MAGNESIUM (BEAKER) (test rorr=793) 1.8 mg/dL 1.6-2.6 BASIC METABOLIC [id number] 06:06:00 Test Item Value Reference Range Comments SODIUM (BEAKER) (test 135 meq/L 136-145 jryc=902) POTASSIUM (BEAKER) (test 4.6 meq/L 3.5-5.1 klta=235) CHLORIDE (BEAKER) (test 108 meq/L 98-107 elgy=014) CO2 (BEAKER) (test 18 meq/L 22-29 ttbs=559) BLOOD UREA NITROGEN 55 mg/dL 7-21 (BEAKER) (test dnjy=396) CREATININE (BEAKER) (test 1.51 mg/dL 0.57-1.25 gygo=237) GLUCOSE RANDOM (BEAKER) 147 mg/dL 70-105 (test aryf=165) CALCIUM (BEAKER) (test 8.8 mg/dL 8.4-10.2 qjcv=483) EGFR (BEAKER) (test 34 mL/min/1.73 sq m ESTIMATED GFR IS NOT fwxa=0642) ACCURATE CREATININE CLEARANCE IN PREDICTING GLOMERULAR FILTRATION RATE. ESTIMATED GFR IS NOT APPLICABLE FOR DIALYSIS PATIENTS. HEPATIC FUNCTION [id number] 06:06:00 Test Item Value Reference Range Comments TOTAL PROTEIN (BEAKER) (test hzln=358) 7.1 gm/dL 6.0-8.3 ALBUMIN (BEAKER) (test anrt=9416) 3.5 g/dL 3.5-5.0 BILIRUBIN TOTAL (BEAKER) (test wkih=320) 0.4 mg/dL 0.2-1.2 BILIRUBIN DIRECT (BEAKER) (test dbyb=957) 0.3 mg/dL 0.1-0.5 ALKALINE PHOSPHATASE (BEAKER) (test qnrc=717) 252 U/L 40-150 AST (SGOT) (BEAKER) (test ngjl=553) 25 U/L 5-34 ALT (SGPT) (BEAKER) (test tnmm=672) 48 U/L 6-55 PROTHROMBIN [id number] 05:54:00 Test Item Value Reference Range Comments PROTIME (BEAKER) (test raxk=662) 16.1 seconds 11.7-14.7 INR (BEAKER) (test ticm=319) 1.3 <=5.9 RECOMMENDED COUMADIN/WARFARIN INR THERAPY RANGESSTANDARD DOSE: 2.0 - 3.0 Includes: PROPHYLAXIS forvenous thrombosis, systemic embolization; TREATMENT for venous thrombosis and/or pulmonary embolus.HIGH RISK: Target INR is 2.5-3.5 for patients with mechanical heart valves.POCT-GLUCOSE [id number] 20:20:00 Test Item Value Reference Range Comments POC-GLUCOSE METER (BEAKER) 221 mg/dL 70-[address] [facility] [address] (test udqg=0708) [facility] [id number] POCT-GLUCOSE [id number] 17:23:00 Test Item Value Reference Range Comments POC-GLUCOSE METER (BEAKER) 214 mg/dL 70-[address] [facility] [address] (test uevt=4449) [facility] [id number] BASIC METABOLIC [id number] 14:09:00 Test Item Value Reference Range Comments SODIUM (BEAKER) (test 136 meq/L 136-145 noei=480) POTASSIUM (BEAKER) (test 5.1 meq/L 3.5-5.1 Specimen slightly umzk=697) hemolyzed CHLORIDE (BEAKER) (test 108 meq/L 98-107 pkjn=743) CO2 (BEAKER) (test 18 meq/L 22-29 klnz=623) BLOOD UREA NITROGEN 61 mg/dL 7-21 (BEAKER) (test ailq=559) CREATININE (BEAKER) (test 1.71 mg/dL 0.57-1.25 Specimen slightly yjqi=258) hemolyzed GLUCOSE RANDOM (BEAKER) 214 mg/dL 70-105 (test nlbg=452) CALCIUM (BEAKER) (test 9.0 mg/dL 8.4-10.2 fmzk=693) EGFR (BEAKER) (test 30 mL/min/1.73 sq m ESTIMATED GFR IS NOT lpwb=3292) ACCURATE CREATININE CLEARANCE IN PREDICTING GLOMERULAR FILTRATION RATE. ESTIMATED GFR IS NOT APPLICABLE FOR DIALYSIS PATIENTS. CBC W/PLT COUNT & AUTO [id number] 14:05:00 Test Item Value Reference Range Comments WHITE BLOOD CELL COUNT (BEAKER) (test cnqg=803) 8.4 K/ L 3.5-10.5 RED BLOOD CELL COUNT (BEAKER) (test djxr=577) 2.11 M/ L 3.93-5.22 HEMOGLOBIN (BEAKER) (test xizm=411) 6.4 GM/DL 11.2-15.7 HEMATOCRIT (BEAKER) (test zdtf=494) 20.0 % 34.1-44.9 MEAN CORPUSCULAR VOLUME (BEAKER) (test znor=012) 94.8 fL 79.4-94.8 MEAN CORPUSCULAR HEMOGLOBIN (BEAKER) (test 30.3 pg 25.6-32.2 xaso=069) MEAN CORPUSCULAR HEMOGLOBIN CONC (BEAKER) (test 32.0 GM/DL 32.2-35.5 klcy=414) RED CELL DISTRIBUTION WIDTH (BEAKER) (test 17.1 % 11.7-14.4 fjnn=835) PLATELET COUNT (BEAKER) (test jiiy=793) 204 K/CU MM 150-450 MEAN PLATELET VOLUME (BEAKER) (test kkny=683) 12.5 fL 9.4-12.3 NUCLEATED RED BLOOD CELLS (BEAKER) (test 0 /100 WBC 0-0 zalr=056) NEUTROPHILS RELATIVE PERCENT (BEAKER) (test 72 % zche=840) LYMPHOCYTES RELATIVE PERCENT (BEAKER) (test 15 % naei=965) MONOCYTES RELATIVE PERCENT (BEAKER) (test 8 % qlmd=038) EOSINOPHILS RELATIVE PERCENT (BEAKER) (test 4 % bmdl=931) BASOPHILS RELATIVE PERCENT (BEAKER) (test 1 % olzu=526) NEUTROPHILS ABSOLUTE COUNT (BEAKER) (test 6.02 K/ L 1.56-6.13 gjpc=143) LYMPHOCYTES ABSOLUTE COUNT (BEAKER) (test 1.25 K/ L 1.18-3.74 gbtm=847) MONOCYTES ABSOLUTE COUNT (BEAKER) (test 0.63 K/ L 0.24-0.36 cwlh=059) EOSINOPHILS ABSOLUTE COUNT (BEAKER) (test 0.31 K/ L 0.04-0.36 otva=899) BASOPHILS ABSOLUTE COUNT (BEAKER) (test 0.04 K/ L 0.01-0.08 sole=233) IMMATURE GRANULOCYTES-RELATIVE PERCENT (BEAKER) 1 % 0-1 (test fuge=0443) [id number] 14:05:00 Test Item Value Reference Range Comments PROTIME (BEAKER) (test vmor=319) 15.7 seconds 11.7-14.7 INR (BEAKER) (test hhaz=234) 1.3 <=5.9 PARTIAL THROMBOPLASTIN TIME (BEAKER) (test 29.3 seconds 22.5-36.0 wihd=700) RECOMMENDED COUMADIN/WARFARIN INR THERAPY RANGESSTANDARD DOSE: 2.0 - 3.0 Includes: PROPHYLAXIS forvenous thrombosis, systemic embolization; TREATMENT for venous thrombosis and/or pulmonary embolus.HIGH RISK: Target INR is 2.5-3.5 for patients with mechanical heart valves.AFB CULTURE + [id number] 07:07:00 Test Item Value Reference Range Comments CULTURE (BEAKER) (test No acid-fast bacilli isolated clnh=1479) in 42 days AFB SMEAR (BEAKER) (test No acid fast bacilli seen oioo=465) AFB CULTURE + [id number] 07:07:00 Test Item Value Reference Range Comments CULTURE (BEAKER) (test No acid-fast bacilli isolated xyzv=0429) in 42 days AFB SMEAR (BEAKER) (test No acid fast bacilli seen xgsk=804) FUNGUS CULTURE + [id number] 07:38:00 Test Item Value Reference Range Comments CULTURE (BEAKER) (test No fungus isolated in 28 days tisu=2122) FUNGUS SMEAR (BEAKER) (test No fungi seen zgck=1953) FUNGUS CULTURE + [id number] 07:38:00 Test Item Value Reference Range Comments CULTURE (BEAKER) (test No fungus isolated in 28 days mmjw=2305) FUNGUS SMEAR (BEAKER) (test No fungi seen yekg=7972) POCT-GLUCOSE [id number] 07:56:00 Test Item Value Reference Range Comments POC-GLUCOSE METER (BEAKER) 123 mg/dL 70-[address] [facility] [address] [place] [address] (test jjxa=8734) [facility] [address] BASIC METABOLIC [id number] 07:11:00 Test Item Value Reference Range Comments SODIUM (BEAKER) (test 139 meq/L 136-145 cvzw=087) POTASSIUM (BEAKER) (test 4.3 meq/L 3.5-5.1 yerx=696) CHLORIDE (BEAKER) (test 108 meq/L 98-107 bgxp=822) CO2 (BEAKER) (test 24 meq/L 22-29 sidl=685) BLOOD UREA NITROGEN 35 mg/dL 7-21 (BEAKER) (test qygy=046) CREATININE (BEAKER) (test 2.32 mg/dL 0.57-1.25 lhad=998) GLUCOSE RANDOM (BEAKER) 105 mg/dL 70-105 (test vxut=441) CALCIUM (BEAKER) (test 9.1 mg/dL 8.4-10.2 yfol=036) EGFR (BEAKER) (test 21 mL/min/1.73 sq m ESTIMATED GFR IS NOT slxw=2722) ACCURATE CREATININE CLEARANCE IN PREDICTING GLOMERULAR FILTRATION RATE. ESTIMATED GFR IS NOT APPLICABLE FOR DIALYSIS PATIENTS. [id number] 07:05:00 Test Item Value Reference Range Comments MAGNESIUM (BEAKER) (test sluw=465) 1.6 mg/dL 1.6-2.6 POCT-GLUCOSE [id number] 23:30:00 Test Item Value Reference Range Comments POC-GLUCOSE METER (BEAKER) 129 mg/dL 70-110 TESTED AT [address] (test kock=8538) [place] [id number] POCT-GLUCOSE [id number] 17:02:00 Test Item Value Reference Range Comments POC-GLUCOSE METER (BEAKER) 157 mg/dL 70-110 TESTED AT [address] (test hinb=2436) [place] [id number] POCT-GLUCOSE [id number] 08:01:00 Test Item Value Reference Range Comments POC-GLUCOSE METER (BEAKER) 126 mg/dL 70-110 TESTED AT [address] (test jsft=8234) [facility] [address] BASIC METABOLIC [id number] 07:31:00 Test Item Value Reference Range Comments SODIUM (BEAKER) (test 135 meq/L 136-145 ahot=499) POTASSIUM (BEAKER) (test 4.7 meq/L 3.5-5.1 dpmx=542) CHLORIDE (BEAKER) (test 106 meq/L 98-107 guet=479) CO2 (BEAKER) (test 24 meq/L 22-29 nymh=363) BLOOD UREA NITROGEN 35 mg/dL 7-21 (BEAKER) (test ntfr=605) CREATININE (BEAKER) (test 2.47 mg/dL 0.57-1.25 topq=705) GLUCOSE RANDOM (BEAKER) 107 mg/dL 70-105 (test azzx=785) CALCIUM (BEAKER) (test 8.8 mg/dL 8.4-10.2 bpvk=386) EGFR (BEAKER) (test 20 mL/min/1.73 sq m ESTIMATED GFR IS NOT qtie=4732) ACCURATE CREATININE CLEARANCE IN PREDICTING GLOMERULAR FILTRATION RATE. ESTIMATED GFR IS NOT APPLICABLE FOR DIALYSIS PATIENTS. [id number] 07:29:00 Test Item Value Reference Range Comments MAGNESIUM (BEAKER) (test kvnk=025) 1.7 mg/dL 1.6-2.6 CBC W/PLT COUNT & AUTO [id number] 06:43:00 Test Item Value Reference Range Comments WHITE BLOOD CELL COUNT (BEAKER) (test qieh=436) 6.5 K/ L 3.5-10.5 RED BLOOD CELL COUNT (BEAKER) (test csip=394) 2.91 M/ L 3.93-5.22 HEMOGLOBIN (BEAKER) (test njws=938) 8.6 GM/DL 11.2-15.7 HEMATOCRIT (BEAKER) (test zrqz=220) 27.4 % 34.1-44.9 MEAN CORPUSCULAR VOLUME (BEAKER) (test hgpo=155) 94.2 fL 79.4-94.8 MEAN CORPUSCULAR HEMOGLOBIN (BEAKER) (test 29.6 pg 25.6-32.2 fvjl=538) MEAN CORPUSCULAR HEMOGLOBIN CONC (BEAKER) (test 31.4 GM/DL 32.2-35.5 kroj=304) RED CELL DISTRIBUTION WIDTH (BEAKER) (test 17.2 % 11.7-14.4 ucwc=889) PLATELET COUNT (BEAKER) (test lymr=414) 171 K/CU MM 150-450 MEAN PLATELET VOLUME (BEAKER) (test xnoe=252) 12.8 fL 9.4-12.3 NUCLEATED RED BLOOD CELLS (BEAKER) (test 0 /100 WBC 0-0 zxpa=566) NEUTROPHILS RELATIVE PERCENT (BEAKER) (test 71 % slny=139) LYMPHOCYTES RELATIVE PERCENT (BEAKER) (test 19 % zobo=323) MONOCYTES RELATIVE PERCENT (BEAKER) (test 6 % cjdq=333) EOSINOPHILS RELATIVE PERCENT (BEAKER) (test 3 % noee=355) BASOPHILS RELATIVE PERCENT (BEAKER) (test 1 % mrax=481) NEUTROPHILS ABSOLUTE COUNT (BEAKER) (test 4.61 K/ L 1.56-6.13 vfus=553) LYMPHOCYTES ABSOLUTE COUNT (BEAKER) (test 1.26 K/ L 1.18-3.74 jtdu=506) MONOCYTES ABSOLUTE COUNT (BEAKER) (test 0.42 K/ L 0.24-0.36 eygr=204) EOSINOPHILS ABSOLUTE COUNT (BEAKER) (test 0.19 K/ L 0.04-0.36 qfwf=740) BASOPHILS ABSOLUTE COUNT (BEAKER) (test 0.03 K/ L 0.01-0.08 izlm=879) IMMATURE GRANULOCYTES-RELATIVE PERCENT (BEAKER) 0 % 0-1 (test jhpa=5026) POCT-GLUCOSE [id number] 21:07:00 Test Item Value Reference Range Comments POC-GLUCOSE METER (BEAKER) 116 mg/dL 70-110 TESTED AT [address] (test ujfg=3863) [facility] [address] POCT-GLUCOSE [id number] 17:47:00 Test Item Value Reference Range Comments POC-GLUCOSE METER (BEAKER) 105 mg/dL 70-110 TESTED AT [address] (test bgfe=5553) [facility] [address] POCT-GLUCOSE [id number] 12:14:00 Test Item Value Reference Range Comments POC-GLUCOSE METER (BEAKER) 132 mg/dL 70-110 TESTED AT [address] (test zsoa=2553) [facility] [address] POCT-GLUCOSE [id number] 08:07:00 Test Item Value Reference Range Comments POC-GLUCOSE METER (BEAKER) 115 mg/dL 70-110 TESTED AT [address] (test ntdx=5605) [facility] [address] BASIC METABOLIC [id number] 06:56:00 Test Item Value Reference Range Comments SODIUM (BEAKER) (test 132 meq/L 136-145 ptyt=757) POTASSIUM (BEAKER) (test 4.4 meq/L 3.5-5.1 hhir=969) CHLORIDE (BEAKER) (test 102 meq/L 98-107 jjkt=813) CO2 (BEAKER) (test 22 meq/L 22-29 yekd=187) BLOOD UREA NITROGEN 35 mg/dL 7-21 (BEAKER) (test xlip=206) CREATININE (BEAKER) (test 2.46 mg/dL 0.57-1.25 bvad=624) GLUCOSE RANDOM (BEAKER) 111 mg/dL 70-105 (test lmco=056) CALCIUM (BEAKER) (test 8.5 mg/dL 8.4-10.2 neku=364) EGFR (BEAKER) (test 20 mL/min/1.73 sq m ESTIMATED GFR IS NOT oroc=4174) ACCURATE CREATININE CLEARANCE IN PREDICTING GLOMERULAR FILTRATION RATE. ESTIMATED GFR IS NOT APPLICABLE FOR DIALYSIS PATIENTS. [id number] 06:49:00 Test Item Value Reference Range Comments MAGNESIUM (BEAKER) (test ltcs=009) 1.6 mg/dL 1.6-2.6 POCT-GLUCOSE [id number] 21:07:00 Test Item Value Reference Range Comments POC-GLUCOSE METER (BEAKER) 141 mg/dL 70-110 TESTED AT [address] (test faux=6307) [place] [id number] POCT-GLUCOSE [id number] 21:04:00 Test Item Value Reference Range Comments POC-GLUCOSE METER (BEAKER) 73 mg/dL 70-110 TESTED AT [address] (test tqex=6565) [place] [id number] POCT-GLUCOSE [id number] 17:09:00 Test Item Value Reference Range Comments POC-GLUCOSE METER (BEAKER) 142 mg/dL 70-110 TESTED AT [address] (test whsw=4080) [place] [id number] BASIC METABOLIC [id number] 07:57:00 Test Item Value Reference Range Comments SODIUM (BEAKER) (test 135 meq/L 136-145 icjp=642) POTASSIUM (BEAKER) (test 4.5 meq/L 3.5-5.1 wysq=296) CHLORIDE (BEAKER) (test 104 meq/L 98-107 uune=220) CO2 (BEAKER) (test 22 meq/L 22-29 rwzy=787) BLOOD UREA NITROGEN 32 mg/dL 7-21 (BEAKER) (test imdr=170) CREATININE (BEAKER) (test 2.57 mg/dL 0.57-1.25 jbsj=800) GLUCOSE RANDOM (BEAKER) 122 mg/dL 70-105 (test dfuw=134) CALCIUM (BEAKER) (test 8.9 mg/dL 8.4-10.2 ewai=137) EGFR (BEAKER) (test 19 mL/min/1.73 sq m ESTIMATED GFR IS NOT dovm=7615) ACCURATE CREATININE CLEARANCE IN PREDICTING GLOMERULAR FILTRATION RATE. ESTIMATED GFR IS NOT APPLICABLE FOR DIALYSIS PATIENTS. [id number] 07:56:00 Test Item Value Reference Range Comments MAGNESIUM (BEAKER) (test qzii=913) 2.0 mg/dL 1.6-2.6 POCT-GLUCOSE [id number] 07:35:00 Test Item Value Reference Range Comments POC-GLUCOSE METER (BEAKER) 137 mg/dL 70-[address] [facility] [address] (test hmzu=8136) [place] [address] CBC W/PLT COUNT & AUTO [id number] 06:43:00 Test Item Value Reference Range Comments WHITE BLOOD CELL COUNT (BEAKER) (test uinv=055) 6.3 K/ L 3.5-10.5 RED BLOOD CELL COUNT (BEAKER) (test xict=200) 2.93 M/ L 3.93-5.22 HEMOGLOBIN (BEAKER) (test gmjo=148) 8.6 GM/DL 11.2-15.7 HEMATOCRIT (BEAKER) (test ffma=298) 27.4 % 34.1-44.9 MEAN CORPUSCULAR VOLUME (BEAKER) (test uyye=311) 93.5 fL 79.4-94.8 MEAN CORPUSCULAR HEMOGLOBIN (BEAKER) (test 29.4 pg 25.6-32.2 fawm=729) MEAN CORPUSCULAR HEMOGLOBIN CONC (BEAKER) (test 31.4 GM/DL 32.2-35.5 dxne=207) RED CELL DISTRIBUTION WIDTH (BEAKER) (test 16.8 % 11.7-14.4 vaui=504) PLATELET COUNT (BEAKER) (test ecsg=069) 185 K/CU MM 150-450 MEAN PLATELET VOLUME (BEAKER) (test oxwv=144) 13.5 fL 9.4-12.3 NUCLEATED RED BLOOD CELLS (BEAKER) (test 0 /100 WBC 0-0 asap=213) NEUTROPHILS RELATIVE PERCENT (BEAKER) (test 65 % shrn=013) LYMPHOCYTES RELATIVE PERCENT (BEAKER) (test 22 % kevb=223) MONOCYTES RELATIVE PERCENT (BEAKER) (test 9 % eozk=659) EOSINOPHILS RELATIVE PERCENT (BEAKER) (test 3 % hxnq=863) BASOPHILS RELATIVE PERCENT (BEAKER) (test 1 % jqph=728) NEUTROPHILS ABSOLUTE COUNT (BEAKER) (test 4.11 K/ L 1.56-6.13 puux=461) LYMPHOCYTES ABSOLUTE COUNT (BEAKER) (test 1.40 K/ L 1.18-3.74 pkjv=160) MONOCYTES ABSOLUTE COUNT (BEAKER) (test 0.54 K/ L 0.24-0.36 vtfq=056) EOSINOPHILS ABSOLUTE COUNT (BEAKER) (test 0.21 K/ L 0.04-0.36 fplv=261) BASOPHILS ABSOLUTE COUNT (BEAKER) (test 0.04 K/ L 0.01-0.08 zjnu=168) IMMATURE GRANULOCYTES-RELATIVE PERCENT (BEAKER) 0 % 0-1 (test gkcv=8665) POCT-GLUCOSE [id number] 22:30:00 Test Item Value Reference Range Comments POC-GLUCOSE METER (BEAKER) 152 mg/dL 70-110 TESTED AT [address] (test fxlp=8705) [place] [id number] POCT-GLUCOSE [id number] 17:17:00 Test Item Value Reference Range Comments POC-GLUCOSE METER (BEAKER) 154 mg/dL 70-110 TESTED AT [address] (test fkeo=4701) [place] [id number] POCT-GLUCOSE [id number] 13:09:00 Test Item Value Reference Range Comments POC-GLUCOSE METER (BEAKER) 125 mg/dL 70-110 TESTED AT [address] (test gphd=5493) [place] [id number] POCT-GLUCOSE [id number] 09:25:00 Test Item Value Reference Range Comments POC-GLUCOSE METER (BEAKER) 119 mg/dL 70-110 TESTED AT [address] (test blnv=9383) [facility] [address] BASIC METABOLIC [id number] 07:53:00 Test Item Value Reference Range Comments SODIUM (BEAKER) (test 134 meq/L 136-145 zprk=242) POTASSIUM (BEAKER) (test 4.5 meq/L 3.5-5.1 hxnf=499) CHLORIDE (BEAKER) (test 105 meq/L 98-107 dneg=333) CO2 (BEAKER) (test 21 meq/L 22-29 ldxc=668) BLOOD UREA NITROGEN 32 mg/dL 7-21 (BEAKER) (test zqlh=496) CREATININE (BEAKER) (test 2.49 mg/dL 0.57-1.25 bwiu=395) GLUCOSE RANDOM (BEAKER) 111 mg/dL 70-105 (test clmk=795) CALCIUM (BEAKER) (test 8.7 mg/dL 8.4-10.2 hutc=838) EGFR (BEAKER) (test 19 mL/min/1.73 sq m ESTIMATED GFR IS NOT hlvh=3179) ACCURATE CREATININE CLEARANCE IN PREDICTING GLOMERULAR FILTRATION RATE. ESTIMATED GFR IS NOT APPLICABLE FOR DIALYSIS PATIENTS. [id number] 07:47:00 Test Item Value Reference Range Comments MAGNESIUM (BEAKER) (test wrqw=307) 1.4 mg/dL 1.6-2.6 CBC W/PLT COUNT & AUTO [id number] 06:42:00 Test Item Value Reference Range Comments WHITE BLOOD CELL COUNT (BEAKER) (test piid=501) 6.5 K/ L 3.5-10.5 RED BLOOD CELL COUNT (BEAKER) (test uwvq=368) 3.06 M/ L 3.93-5.22 HEMOGLOBIN (BEAKER) (test emff=414) 9.1 GM/DL 11.2-15.7 HEMATOCRIT (BEAKER) (test wwid=808) 29.3 % 34.1-44.9 MEAN CORPUSCULAR VOLUME (BEAKER) (test gqnr=915) 95.8 fL 79.4-94.8 MEAN CORPUSCULAR HEMOGLOBIN (BEAKER) (test 29.7 pg 25.6-32.2 qvqa=635) MEAN CORPUSCULAR HEMOGLOBIN CONC (BEAKER) (test 31.1 GM/DL 32.2-35.5 fbav=133) RED CELL DISTRIBUTION WIDTH (BEAKER) (test 17.1 % 11.7-14.4 yfkq=425) PLATELET COUNT (BEAKER) (test vxvg=913) 188 K/CU MM 150-450 MEAN PLATELET VOLUME (BEAKER) (test weug=466) 13.1 fL 9.4-12.3 NUCLEATED RED BLOOD CELLS (BEAKER) (test 0 /100 WBC 0-0 jfyp=880) NEUTROPHILS RELATIVE PERCENT (BEAKER) (test 66 % znyn=325) LYMPHOCYTES RELATIVE PERCENT (BEAKER) (test 21 % dcld=864) MONOCYTES RELATIVE PERCENT (BEAKER) (test 8 % pist=107) EOSINOPHILS RELATIVE PERCENT (BEAKER) (test 3 % ngka=180) BASOPHILS RELATIVE PERCENT (BEAKER) (test 1 % ytbh=089) NEUTROPHILS ABSOLUTE COUNT (BEAKER) (test 4.31 K/ L 1.56-6.13 srmr=813) LYMPHOCYTES ABSOLUTE COUNT (BEAKER) (test 1.39 K/ L 1.18-3.74 gcbw=371) MONOCYTES ABSOLUTE COUNT (BEAKER) (test 0.55 K/ L 0.24-0.36 ylfw=096) EOSINOPHILS ABSOLUTE COUNT (BEAKER) (test 0.19 K/ L 0.04-0.36 aher=053) BASOPHILS ABSOLUTE COUNT (BEAKER) (test 0.05 K/ L 0.01-0.08 nphe=155) IMMATURE GRANULOCYTES-RELATIVE PERCENT (BEAKER) 0 % 0-1 (test tskw=1057) POCT-GLUCOSE [id number] 22:04:00 Test Item Value Reference Range Comments POC-GLUCOSE METER (BEAKER) 114 mg/dL 70-110 TESTED AT [address] (test lftc=3633) [place] [address] POCT-GLUCOSE [id number] 16:53:00 Test Item Value Reference Range Comments POC-GLUCOSE METER (BEAKER) 232 mg/dL 70-110 TESTED AT [address] (test kclt=4614) [place] [address] POCT-GLUCOSE [id number] 12:27:00 Test Item Value Reference Range Comments POC-GLUCOSE METER (BEAKER) 121 mg/dL 70-110 TESTED AT [address] (test ghqr=0017) [place] [id number] POCT-GLUCOSE [id number] 09:12:00 Test Item Value Reference Range Comments POC-GLUCOSE METER (BEAKER) 94 mg/dL 70-110 TESTED AT [address] (test gufs=9437) [place] [address] POCT-GLUCOSE [id number] 09:12:00 Test Item Value Reference Range Comments POC-GLUCOSE METER (BEAKER) 113 mg/dL 70-110 TESTED AT [address] (test bssp=2785) [facility] [address] BASIC METABOLIC [id number] 06:44:00 Test Item Value Reference Range Comments SODIUM (BEAKER) (test 136 meq/L 136-145 mher=887) POTASSIUM (BEAKER) (test 4.6 meq/L 3.5-5.1 ayuq=750) CHLORIDE (BEAKER) (test 107 meq/L 98-107 shio=175) CO2 (BEAKER) (test 21 meq/L 22-29 xifu=070) BLOOD UREA NITROGEN 37 mg/dL 7-21 (BEAKER) (test vtag=749) CREATININE (BEAKER) (test 2.80 mg/dL 0.57-1.25 lgot=920) GLUCOSE RANDOM (BEAKER) 72 mg/dL 70-105 (test kbid=787) CALCIUM (BEAKER) (test 8.7 mg/dL 8.4-10.2 lhrr=615) EGFR (BEAKER) (test 17 mL/min/1.73 sq m ESTIMATED GFR IS NOT jcjp=5388) ACCURATE CREATININE CLEARANCE IN PREDICTING GLOMERULAR FILTRATION RATE. ESTIMATED GFR IS NOT APPLICABLE FOR DIALYSIS PATIENTS. [id number] 06:43:00 Test Item Value Reference Range Comments MAGNESIUM (BEAKER) (test sqmx=501) 1.6 mg/dL 1.6-2.6 CBC W/PLT COUNT & AUTO [id number] 06:23:00 Test Item Value Reference Range Comments WHITE BLOOD CELL COUNT (BEAKER) (test vffk=233) 7.1 K/ L 3.5-10.5 RED BLOOD CELL COUNT (BEAKER) (test nmxb=070) 2.99 M/ L 3.93-5.22 HEMOGLOBIN (BEAKER) (test mjwd=675) 8.9 GM/DL 11.2-15.7 HEMATOCRIT (BEAKER) (test gqjx=459) 28.5 % 34.1-44.9 MEAN CORPUSCULAR VOLUME (BEAKER) (test giyg=035) 95.3 fL 79.4-94.8 MEAN CORPUSCULAR HEMOGLOBIN (BEAKER) (test 29.8 pg 25.6-32.2 lnks=872) MEAN CORPUSCULAR HEMOGLOBIN CONC (BEAKER) (test 31.2 GM/DL 32.2-35.5 ybnm=525) RED CELL DISTRIBUTION WIDTH (BEAKER) (test 16.8 % 11.7-14.4 lakr=121) PLATELET COUNT (BEAKER) (test xxmm=648) 179 K/CU MM 150-450 MEAN PLATELET VOLUME (BEAKER) (test ogni=830) 13.3 fL 9.4-12.3 NUCLEATED RED BLOOD CELLS (BEAKER) (test 0 /100 WBC 0-0 ffzt=622) NEUTROPHILS RELATIVE PERCENT (BEAKER) (test 67 % kabq=016) LYMPHOCYTES RELATIVE PERCENT (BEAKER) (test 18 % jwjb=558) MONOCYTES RELATIVE PERCENT (BEAKER) (test 9 % cyph=644) EOSINOPHILS RELATIVE PERCENT (BEAKER) (test 5 % voix=330) BASOPHILS RELATIVE PERCENT (BEAKER) (test 1 % ortq=959) NEUTROPHILS ABSOLUTE COUNT (BEAKER) (test 4.70 K/ L 1.56-6.13 zzrd=753) LYMPHOCYTES ABSOLUTE COUNT (BEAKER) (test 1.29 K/ L 1.18-3.74 mmih=708) MONOCYTES ABSOLUTE COUNT (BEAKER) (test 0.66 K/ L 0.24-0.36 klnh=468) EOSINOPHILS ABSOLUTE COUNT (BEAKER) (test 0.33 K/ L 0.04-0.36 slov=461) BASOPHILS ABSOLUTE COUNT (BEAKER) (test 0.05 K/ L 0.01-0.08 cbrp=647) IMMATURE GRANULOCYTES-RELATIVE PERCENT (BEAKER) 0 % 0-1 (test vdor=9030) POCT-GLUCOSE [id number] 21:00:00 Test Item Value Reference Range Comments POC-GLUCOSE METER (BEAKER) 157 mg/dL 70-110 TESTED AT [address] (test samd=2355) [place] [id number] POCT-GLUCOSE [id number] 17:12:00 Test Item Value Reference Range Comments POC-GLUCOSE METER (BEAKER) 138 mg/dL 70-110 TESTED AT [address] (test xkyi=9833) [place] [id number] POCT-GLUCOSE [id number] 13:13:00 Test Item Value Reference Range Comments POC-GLUCOSE METER (BEAKER) 137 mg/dL 70-110 TESTED AT [address] (test scap=6019) [place] [address] POCT-GLUCOSE [id number] 12:46:00 Test Item Value Reference Range Comments POC-GLUCOSE METER (BEAKER) 141 mg/dL 70-110 TESTED AT [address] (test skhw=2216) [place] [address] POCT-GLUCOSE [id number] 08:25:00 Test Item Value Reference Range Comments POC-GLUCOSE METER (BEAKER) 118 mg/dL 70-[address] [facility] [address] (test tnjl=4799) [facility] [address] COMPREHENSIVE METABOLIC [id number] 07:48:00 Test Item Value Reference Range Comments TOTAL PROTEIN (BEAKER) 6.5 gm/dL 6.0-8.3 (test qwoq=572) ALBUMIN (BEAKER) (test 3.1 g/dL 3.5-5.0 cyok=2286) ALKALINE PHOSPHATASE 134 U/L 40-150 (BEAKER) (test zhax=443) BILIRUBIN TOTAL (BEAKER) 0.2 mg/dL 0.2-1.2 (test ndzz=811) SODIUM (BEAKER) (test 138 meq/L 136-145 btxo=274) POTASSIUM (BEAKER) (test 4.1 meq/L 3.5-5.1 jmzw=436) CHLORIDE (BEAKER) (test 108 meq/L 98-107 vhkn=448) CO2 (BEAKER) (test 21 meq/L 22-29 jhfa=978) BLOOD UREA NITROGEN 38 mg/dL 7-21 (BEAKER) (test jcjr=046) CREATININE (BEAKER) (test 2.74 mg/dL 0.57-1.25 iwuq=843) GLUCOSE RANDOM (BEAKER) 96 mg/dL 70-105 (test wukv=329) CALCIUM (BEAKER) (test 8.7 mg/dL 8.4-10.2 fbxp=221) AST (SGOT) (BEAKER) (test 11 U/L 5-34 ysdm=607) ALT (SGPT) (BEAKER) (test 11 U/L 6-55 vhrd=830) EGFR (BEAKER) (test 17 mL/min/1.73 sq m ESTIMATED GFR IS NOT prgf=9400) ACCURATE CREATININE CLEARANCE IN PREDICTING GLOMERULAR FILTRATION RATE. ESTIMATED GFR IS NOT APPLICABLE FOR DIALYSIS PATIENTS. [id number] 07:42:00 Test Item Value Reference Range Comments PHOSPHORUS (BEAKER) (test bhak=141) 3.8 mg/dL 2.3-4.7 [id number] 07:42:00 Test Item Value Reference Range Comments MAGNESIUM (BEAKER) (test gzxq=513) 1.7 mg/dL 1.6-2.6 CBC W/PLT COUNT & AUTO [id number] 06:49:00 Test Item Value Reference Range Comments WHITE BLOOD CELL COUNT (BEAKER) (test hkta=249) 7.0 K/ L 3.5-10.5 RED BLOOD CELL COUNT (BEAKER) (test mdjz=909) 3.12 M/ L 3.93-5.22 HEMOGLOBIN (BEAKER) (test glkr=674) 9.2 GM/DL 11.2-15.7 HEMATOCRIT (BEAKER) (test bkma=789) 29.2 % 34.1-44.9 MEAN CORPUSCULAR VOLUME (BEAKER) (test bcuz=514) 93.6 fL 79.4-94.8 MEAN CORPUSCULAR HEMOGLOBIN (BEAKER) (test 29.5 pg 25.6-32.2 efyj=721) MEAN CORPUSCULAR HEMOGLOBIN CONC (BEAKER) (test 31.5 GM/DL 32.2-35.5 vjfi=379) RED CELL DISTRIBUTION WIDTH (BEAKER) (test 17.2 % 11.7-14.4 idvb=753) PLATELET COUNT (BEAKER) (test hpdm=637) 191 K/CU MM 150-450 MEAN PLATELET VOLUME (BEAKER) (test lrza=162) 12.9 fL 9.4-12.3 NUCLEATED RED BLOOD CELLS (BEAKER) (test 0 /100 WBC 0-0 lxyw=508) NEUTROPHILS RELATIVE PERCENT (BEAKER) (test 62 % tlka=713) LYMPHOCYTES RELATIVE PERCENT (BEAKER) (test 24 % gakw=240) MONOCYTES RELATIVE PERCENT (BEAKER) (test 9 % ctue=435) EOSINOPHILS RELATIVE PERCENT (BEAKER) (test 4 % sdfp=084) BASOPHILS RELATIVE PERCENT (BEAKER) (test 1 % frme=946) NEUTROPHILS ABSOLUTE COUNT (BEAKER) (test 4.31 K/ L 1.56-6.13 lsiz=523) LYMPHOCYTES ABSOLUTE COUNT (BEAKER) (test 1.68 K/ L 1.18-3.74 yjun=645) MONOCYTES ABSOLUTE COUNT (BEAKER) (test 0.59 K/ L 0.24-0.36 yxbw=018) EOSINOPHILS ABSOLUTE COUNT (BEAKER) (test 0.30 K/ L 0.04-0.36 vsyh=461) BASOPHILS ABSOLUTE COUNT (BEAKER) (test 0.06 K/ L 0.01-0.08 edjc=907) IMMATURE GRANULOCYTES-RELATIVE PERCENT (BEAKER) 0 % 0-1 (test lbgn=9845) CALCIUM, [id number] 06:48:00 Test Item Value Reference Range Comments CALCIUM IONIZED (BEAKER) (test dhmz=658) 1.11 mmol/L 1.12-1.27 PH, BLOOD (BEAKER) (test plks=6863) 7.37 POCT-GLUCOSE [id number] 20:29:00 Test Item Value Reference Range Comments POC-GLUCOSE METER (BEAKER) 171 mg/dL 70-110 TESTED AT [address] (test rcwy=7455) [place] [id number] POCT-GLUCOSE [id number] 17:26:00 Test Item Value Reference Range Comments POC-GLUCOSE METER (BEAKER) 281 mg/dL 70-110 TESTED AT [address] (test ryps=7911) [place] [id number] POCT-GLUCOSE [id number] 12:16:00 Test Item Value Reference Range Comments POC-GLUCOSE METER (BEAKER) 118 mg/dL 70-110 TESTED AT [address] (test xelc=1426) [place] [id number] SURGICALLY OBTAINED CULTURE + GRAM [id number] 09:26:00 Test Item Value Reference Range Comments CULTURE (BEAKER) (test 1+ Escherichia coli zzxy=2338) GRAM STAIN RESULT <1+ White blood cells (BEAKER) (test seen kzie=7950) GRAM STAIN RESULT No organisms seen (BEAKER) (test pwpp=936608) SURGICALLY OBTAINED CULTURE + GRAM [id number] 09:22:00 Test Item Value Reference Range Comments CULTURE (BEAKER) (test COAGULASE NEGATIVE 1+ Coagulase negative qori=2222) STAPHYLOCOCCUS Staphylococcus Clindamycin (test code=10) Erythromycin (test code=4) Linezolid (test code=40) Nitrofurantoin (test code=23) Oxacillin (test code=14) Rifampin (test code=43) Tetracycline (test code=2) Trimethoprim + Sulfamethoxazole (test code=47) Vancomycin (test code=13) CULTURE (BEAKER) (test 1+ Enterococcus pobi=8116) species CULTURE (BEAKER) (test ENTEROCOCCUS SPECIES 1+ Vancomycin bwnj=6094) resistant Enterococcus species Ampicillin (test code=26) Linezolid (test code=40) Tetracycline (test code=2) Vancomycin (test code=13) GRAM STAIN RESULT 2+ White blood cells (BEAKER) (test eiug=0362) seen GRAM STAIN RESULT No organisms seen (BEAKER) (test kbqn=015335) BASIC METABOLIC [id number] 09:18:00 Test Item Value Reference Range Comments SODIUM (BEAKER) (test 140 meq/L 136-145 gksx=763) POTASSIUM (BEAKER) (test 4.1 meq/L 3.5-5.1 yprh=164) CHLORIDE (BEAKER) (test 108 meq/L 98-107 hyya=493) CO2 (BEAKER) (test 21 meq/L 22-29 bzee=009) BLOOD UREA NITROGEN 44 mg/dL 7-21 (BEAKER) (test fonc=026) CREATININE (BEAKER) (test 3.12 mg/dL 0.57-1.25 orre=048) GLUCOSE RANDOM (BEAKER) 162 mg/dL 70-105 (test pxsj=044) CALCIUM (BEAKER) (test 8.8 mg/dL 8.4-10.2 gokl=105) EGFR (BEAKER) (test 15 mL/min/1.73 sq m ESTIMATED GFR IS NOT hgbf=3647) ACCURATE CREATININE CLEARANCE IN PREDICTING GLOMERULAR FILTRATION RATE. ESTIMATED GFR IS NOT APPLICABLE FOR DIALYSIS PATIENTS. [id number] 09:12:00 Test Item Value Reference Range Comments MAGNESIUM (BEAKER) (test geik=510) 1.8 mg/dL 1.6-2.6 POCT-GLUCOSE [id number] 07:42:00 Test Item Value Reference Range Comments POC-GLUCOSE METER (BEAKER) 174 mg/dL 70-[address] [facility] [address] [facility] (test eiyc=5128) [facility] [address] CBC W/PLT COUNT & AUTO [id number] 07:23:00 Test Item Value Reference Range Comments WHITE BLOOD CELL COUNT (BEAKER) (test osgp=021) 7.5 K/ L 3.5-10.5 RED BLOOD CELL COUNT (BEAKER) (test pdew=536) 3.21 M/ L 3.93-5.22 HEMOGLOBIN (BEAKER) (test xuja=067) 9.4 GM/DL 11.2-15.7 HEMATOCRIT (BEAKER) (test konf=658) 29.9 % 34.1-44.9 MEAN CORPUSCULAR VOLUME (BEAKER) (test ximj=306) 93.1 fL 79.4-94.8 MEAN CORPUSCULAR HEMOGLOBIN (BEAKER) (test 29.3 pg 25.6-32.2 xsou=216) MEAN CORPUSCULAR HEMOGLOBIN CONC (BEAKER) (test 31.4 GM/DL 32.2-35.5 uqgr=938) RED CELL DISTRIBUTION WIDTH (BEAKER) (test 17.3 % 11.7-14.4 rfbe=912) PLATELET COUNT (BEAKER) (test szex=778) 205 K/CU MM 150-450 MEAN PLATELET VOLUME (BEAKER) (test wsea=061) 13.4 fL 9.4-12.3 NUCLEATED RED BLOOD CELLS (BEAKER) (test 0 /100 WBC 0-0 gtwr=847) NEUTROPHILS RELATIVE PERCENT (BEAKER) (test 74 % bkcz=347) LYMPHOCYTES RELATIVE PERCENT (BEAKER) (test 14 % nbbi=997) MONOCYTES RELATIVE PERCENT (BEAKER) (test 7 % bjsd=321) EOSINOPHILS RELATIVE PERCENT (BEAKER) (test 3 % guxd=629) BASOPHILS RELATIVE PERCENT (BEAKER) (test 1 % zkcu=742) NEUTROPHILS ABSOLUTE COUNT (BEAKER) (test 5.56 K/ L 1.56-6.13 ytfc=940) LYMPHOCYTES ABSOLUTE COUNT (BEAKER) (test 1.08 K/ L 1.18-3.74 lyjp=630) MONOCYTES ABSOLUTE COUNT (BEAKER) (test 0.53 K/ L 0.24-0.36 fwzt=796) EOSINOPHILS ABSOLUTE COUNT (BEAKER) (test 0.25 K/ L 0.04-0.36 ctut=247) BASOPHILS ABSOLUTE COUNT (BEAKER) (test 0.05 K/ L 0.01-0.08 yfsm=814) IMMATURE GRANULOCYTES-RELATIVE PERCENT (BEAKER) 0 % 0-1 (test sqgm=6958) POCT-GLUCOSE [id number] 21:10:00 Test Item Value Reference Range Comments POC-GLUCOSE METER (BEAKER) 183 mg/dL 70-[address] [facility] [facility] [address] [facility] (test doqe=2696) [facility] [address] POCT-GLUCOSE [id number] 18:32:00 Test Item Value Reference Range Comments POC-GLUCOSE METER (BEAKER) 116 mg/dL 70-[address] [facility] [address] [facility] (test ewyd=3320) [facility] [address] POCT-GLUCOSE [id number] 13:22:00 Test Item Value Reference Range Comments POC-GLUCOSE METER (BEAKER) 151 mg/dL 70-110 TESTED AT [place] [id number] [facility] (test xark=9285) [place] [id number] POCT-GLUCOSE [id number] 10:11:00 Test Item Value Reference Range Comments POC-GLUCOSE METER (BEAKER) 133 mg/dL 70-110 TESTED AT [address] (test pmhx=0533) [place] [id number] SURGICALLY OBTAINED CULTURE + GRAM [id number] 10:02:00 Test Item Value Reference Range Comments CULTURE (BEAKER) <1+ Same organism has been (test aqyq=7300) isolated from cultures(s) of the same body site and collection date. Repeat identification and susceptibility testing performed only after consultation with the clinical microbiology laboratory.Vancomycin resistant Enterococcus species GRAM STAIN RESULT <1+ White blood cells (BEAKER) (test seen ajis=6376) GRAM STAIN RESULT No organisms seen (BEAKER) (test smnj=587422) BASIC METABOLIC [id number] 07:36:00 Test Item Value Reference Range Comments SODIUM (BEAKER) (test 145 meq/L 136-145 ttql=332) POTASSIUM (BEAKER) (test 3.6 meq/L 3.5-5.1 qrwx=107) CHLORIDE (BEAKER) (test 111 meq/L 98-107 vdck=410) CO2 (BEAKER) (test 21 meq/L 22-29 qtdy=121) BLOOD UREA NITROGEN 37 mg/dL 7-21 (BEAKER) (test titl=468) CREATININE (BEAKER) (test 2.51 mg/dL 0.57-1.25 vnjl=711) GLUCOSE RANDOM (BEAKER) 89 mg/dL 70-105 (test gbsw=507) CALCIUM (BEAKER) (test 7.8 mg/dL 8.4-10.2 olab=391) EGFR (BEAKER) (test 19 mL/min/1.73 sq m ESTIMATED GFR IS NOT dcgl=5823) ACCURATE CREATININE CLEARANCE IN PREDICTING GLOMERULAR FILTRATION RATE. ESTIMATED GFR IS NOT APPLICABLE FOR DIALYSIS PATIENTS. [id number] 07:35:00 Test Item Value Reference Range Comments MAGNESIUM (BEAKER) (test cmcs=119) 1.7 mg/dL 1.6-2.6 CBC W/PLT COUNT & AUTO [id number] 06:59:00 Test Item Value Reference Range Comments WHITE BLOOD CELL COUNT (BEAKER) (test dnwo=318) 5.8 K/ L 3.5-10.5 RED BLOOD CELL COUNT (BEAKER) (test ufmj=701) 2.74 M/ L 3.93-5.22 HEMOGLOBIN (BEAKER) (test sktt=932) 8.1 GM/DL 11.2-15.7 HEMATOCRIT (BEAKER) (test wyvw=980) 25.6 % 34.1-44.9 MEAN CORPUSCULAR VOLUME (BEAKER) (test blwz=419) 93.4 fL 79.4-94.8 MEAN CORPUSCULAR HEMOGLOBIN (BEAKER) (test 29.6 pg 25.6-32.2 ngwt=309) MEAN CORPUSCULAR HEMOGLOBIN CONC (BEAKER) (test 31.6 GM/DL 32.2-35.5 vklb=017) RED CELL DISTRIBUTION WIDTH (BEAKER) (test 17.7 % 11.7-14.4 lgrl=226) PLATELET COUNT (BEAKER) (test woiq=508) 174 K/CU MM 150-450 MEAN PLATELET VOLUME (BEAKER) (test qzpi=246) 13.0 fL 9.4-12.3 NUCLEATED RED BLOOD CELLS (BEAKER) (test 0 /100 WBC 0-0 dzud=218) NEUTROPHILS RELATIVE PERCENT (BEAKER) (test 65 % zabi=110) LYMPHOCYTES RELATIVE PERCENT (BEAKER) (test 18 % xemv=411) MONOCYTES RELATIVE PERCENT (BEAKER) (test 10 % lzbx=364) EOSINOPHILS RELATIVE PERCENT (BEAKER) (test 5 % rzdz=159) BASOPHILS RELATIVE PERCENT (BEAKER) (test 1 % lbyr=770) NEUTROPHILS ABSOLUTE COUNT (BEAKER) (test 3.73 K/ L 1.56-6.13 ehrg=852) LYMPHOCYTES ABSOLUTE COUNT (BEAKER) (test 1.05 K/ L 1.18-3.74 jmgq=265) MONOCYTES ABSOLUTE COUNT (BEAKER) (test 0.58 K/ L 0.24-0.36 sqdj=860) EOSINOPHILS ABSOLUTE COUNT (BEAKER) (test 0.29 K/ L 0.04-0.36 wjcx=249) BASOPHILS ABSOLUTE COUNT (BEAKER) (test 0.06 K/ L 0.01-0.08 vybb=128) IMMATURE GRANULOCYTES-RELATIVE PERCENT (BEAKER) 1 % 0-1 (test musm=5338) ANAEROBIC [id number] 04:29:00 Test Item Value Reference Range Comments CULTURE (BEAKER) (test fgch=3461) No anaerobes isolated ANAEROBIC [id number] 04:29:00 Test Item Value Reference Range Comments CULTURE (BEAKER) (test tmar=1461) No anaerobes isolated ANAEROBIC [id number] 04:29:00 Test Item Value Reference Range Comments CULTURE (BEAKER) (test hovd=9701) No anaerobes isolated POCT-GLUCOSE [id number] 21:20:00 Test Item Value Reference Range Comments POC-GLUCOSE METER (BEAKER) 122 mg/dL 70-110 TESTED AT [address] (test zqwk=3480) [place] [address] POCT-GLUCOSE [id number] 17:29:00 Test Item Value Reference Range Comments POC-GLUCOSE METER (BEAKER) 173 mg/dL 70-110 TESTED AT [address] (test geax=0014) [place] [address] POCT-GLUCOSE [id number] 12:15:00 Test Item Value Reference Range Comments POC-GLUCOSE METER (BEAKER) 125 mg/dL 70-110 TESTED AT [address] (test djop=4936) [place] [address] POCT-GLUCOSE [id number] 12:12:00 Test Item Value Reference Range Comments POC-GLUCOSE METER (BEAKER) 94 mg/dL 70-110 TESTED AT [address] (test sljb=3720) [place] [address] BASIC METABOLIC [id number] 06:42:00 Test Item Value Reference Range Comments SODIUM (BEAKER) (test 140 meq/L 136-145 ypvd=179) POTASSIUM (BEAKER) (test 4.3 meq/L 3.5-5.1 rvmx=437) CHLORIDE (BEAKER) (test 111 meq/L 98-107 ilwi=662) CO2 (BEAKER) (test 22 meq/L 22-29 abii=165) BLOOD UREA NITROGEN 44 mg/dL 7-21 (BEAKER) (test dlpd=371) CREATININE (BEAKER) (test 2.81 mg/dL 0.57-1.25 mncp=527) GLUCOSE RANDOM (BEAKER) 78 mg/dL 70-105 (test rvis=523) CALCIUM (BEAKER) (test 8.3 mg/dL 8.4-10.2 dkwp=357) EGFR (BEAKER) (test 17 mL/min/1.73 sq m ESTIMATED GFR IS NOT epbl=8848) ACCURATE CREATININE CLEARANCE IN PREDICTING GLOMERULAR FILTRATION RATE. ESTIMATED GFR IS NOT APPLICABLE FOR DIALYSIS PATIENTS. [id number] 06:38:00 Test Item Value Reference Range Comments MAGNESIUM (BEAKER) (test gndk=887) 1.9 mg/dL 1.6-2.6 CBC W/PLT COUNT & AUTO [id number] 06:32:00 Test Item Value Reference Range Comments WHITE BLOOD CELL COUNT (BEAKER) (test fmog=855) 5.3 K/ L 3.5-10.5 RED BLOOD CELL COUNT (BEAKER) (test ultv=298) 2.21 M/ L 3.93-5.22 HEMOGLOBIN (BEAKER) (test ckak=266) 6.5 GM/DL 11.2-15.7 HEMATOCRIT (BEAKER) (test blrj=095) 21.4 % 34.1-44.9 MEAN CORPUSCULAR VOLUME (BEAKER) (test bfqw=416) 96.8 fL 79.4-94.8 MEAN CORPUSCULAR HEMOGLOBIN (BEAKER) (test 29.4 pg 25.6-32.2 lnah=137) MEAN CORPUSCULAR HEMOGLOBIN CONC (BEAKER) (test 30.4 GM/DL 32.2-35.5 sdel=011) RED CELL DISTRIBUTION WIDTH (BEAKER) (test 17.2 % 11.7-14.4 dsio=904) PLATELET COUNT (BEAKER) (test hjvj=071) 185 K/CU MM 150-450 MEAN PLATELET VOLUME (BEAKER) (test nowy=991) 12.6 fL 9.4-12.3 NUCLEATED RED BLOOD CELLS (BEAKER) (test 0 /100 WBC 0-0 ocnj=562) NEUTROPHILS RELATIVE PERCENT (BEAKER) (test 58 % umoq=149) LYMPHOCYTES RELATIVE PERCENT (BEAKER) (test 26 % ibao=352) MONOCYTES RELATIVE PERCENT (BEAKER) (test 9 % focx=267) EOSINOPHILS RELATIVE PERCENT (BEAKER) (test 6 % afkb=863) BASOPHILS RELATIVE PERCENT (BEAKER) (test 1 % qdti=803) NEUTROPHILS ABSOLUTE COUNT (BEAKER) (test 3.11 K/ L 1.56-6.13 nnrf=411) LYMPHOCYTES ABSOLUTE COUNT (BEAKER) (test 1.36 K/ L 1.18-3.74 hila=905) MONOCYTES ABSOLUTE COUNT (BEAKER) (test 0.46 K/ L 0.24-0.36 fsag=186) EOSINOPHILS ABSOLUTE COUNT (BEAKER) (test 0.33 K/ L 0.04-0.36 jrwv=406) BASOPHILS ABSOLUTE COUNT (BEAKER) (test 0.06 K/ L 0.01-0.08 kusv=382) IMMATURE GRANULOCYTES-RELATIVE PERCENT (BEAKER) 0 % 0-1 (test hpll=4955) POCT-GLUCOSE [id number] 21:56:00 Test Item Value Reference Range Comments POC-GLUCOSE METER (BEAKER) 105 mg/dL 70-110 TESTED AT [address] (test bjsy=5632) [place] [address] POCT-GLUCOSE [id number] 12:36:00 Test Item Value Reference Range Comments POC-GLUCOSE METER (BEAKER) 85 mg/dL 70-110 TESTED AT [address] (test yncx=8454) [place] [address] POCT-GLUCOSE [id number] 07:51:00 Test Item Value Reference Range Comments POC-GLUCOSE METER (BEAKER) 91 mg/dL 70-110 TESTED AT [address] (test hdkj=0010) [place] [address] BASIC METABOLIC [id number] 07:08:00 Test Item Value Reference Range Comments SODIUM (BEAKER) (test 138 meq/L 136-145 ulzl=538) POTASSIUM (BEAKER) (test 5.1 meq/L 3.5-5.1 maly=785) CHLORIDE (BEAKER) (test 108 meq/L 98-107 wyuh=030) CO2 (BEAKER) (test 22 meq/L 22-29 bvsg=445) BLOOD UREA NITROGEN 48 mg/dL 7-21 (BEAKER) (test tvka=677) CREATININE (BEAKER) (test 2.83 mg/dL 0.57-1.25 pvbc=313) GLUCOSE RANDOM (BEAKER) 70 mg/dL 70-105 (test lwff=430) CALCIUM (BEAKER) (test 8.6 mg/dL 8.4-10.2 qmin=556) EGFR (BEAKER) (test 17 mL/min/1.73 sq m ESTIMATED GFR IS NOT vvwb=1316) ACCURATE CREATININE CLEARANCE IN PREDICTING GLOMERULAR FILTRATION RATE. ESTIMATED GFR IS NOT APPLICABLE FOR DIALYSIS PATIENTS. [id number] 07:05:00 Test Item Value Reference Range Comments MAGNESIUM (BEAKER) (test mfdg=534) 1.9 mg/dL 1.6-2.6 CBC W/PLT COUNT & AUTO [id number] 06:56:00 Test Item Value Reference Range Comments WHITE BLOOD CELL COUNT (BEAKER) (test pgmf=729) 5.7 K/ L 3.5-10.5 RED BLOOD CELL COUNT (BEAKER) (test ktrz=800) 2.39 M/ L 3.93-5.22 HEMOGLOBIN (BEAKER) (test unxt=415) 7.1 GM/DL 11.2-15.7 HEMATOCRIT (BEAKER) (test xytc=664) 22.9 % 34.1-44.9 MEAN CORPUSCULAR VOLUME (BEAKER) (test esup=821) 95.8 fL 79.4-94.8 MEAN CORPUSCULAR HEMOGLOBIN (BEAKER) (test 29.7 pg 25.6-32.2 preo=454) MEAN CORPUSCULAR HEMOGLOBIN CONC (BEAKER) (test 31.0 GM/DL 32.2-35.5 glit=390) RED CELL DISTRIBUTION WIDTH (BEAKER) (test 17.2 % 11.7-14.4 gkfe=063) PLATELET COUNT (BEAKER) (test mkhn=458) 204 K/CU MM 150-450 MEAN PLATELET VOLUME (BEAKER) (test fiog=594) 13.4 fL 9.4-12.3 NUCLEATED RED BLOOD CELLS (BEAKER) (test 0 /100 WBC 0-0 kmol=887) NEUTROPHILS RELATIVE PERCENT (BEAKER) (test 57 % kpax=019) LYMPHOCYTES RELATIVE PERCENT (BEAKER) (test 26 % gdqu=997) MONOCYTES RELATIVE PERCENT (BEAKER) (test 9 % boau=416) EOSINOPHILS RELATIVE PERCENT (BEAKER) (test 7 % egjb=943) BASOPHILS RELATIVE PERCENT (BEAKER) (test 1 % qtbf=903) NEUTROPHILS ABSOLUTE COUNT (BEAKER) (test 3.22 K/ L 1.56-6.13 zzud=635) LYMPHOCYTES ABSOLUTE COUNT (BEAKER) (test 1.46 K/ L 1.18-3.74 shat=521) MONOCYTES ABSOLUTE COUNT (BEAKER) (test 0.53 K/ L 0.24-0.36 kbbr=275) EOSINOPHILS ABSOLUTE COUNT (BEAKER) (test 0.40 K/ L 0.04-0.36 rqsy=651) BASOPHILS ABSOLUTE COUNT (BEAKER) (test 0.06 K/ L 0.01-0.08 ucus=928) IMMATURE GRANULOCYTES-RELATIVE PERCENT (BEAKER) 0 % 0-1 (test tvoj=6551) POCT-GLUCOSE [id number] 20:37:00 Test Item Value Reference Range Comments POC-GLUCOSE METER (BEAKER) 146 mg/dL 70-110 TESTED AT [address] (test kmee=6852) [place] [address] POCT-GLUCOSE [id number] 17:33:00 Test Item Value Reference Range Comments POC-GLUCOSE METER (BEAKER) 169 mg/dL 70-110 TESTED AT [address] (test ittx=0190) [place] [address] POCT-GLUCOSE [id number] 12:31:00 Test Item Value Reference Range Comments POC-GLUCOSE METER (BEAKER) 176 mg/dL 70-110 TESTED AT [address] (test duyx=0681) [place] [address] POCT-GLUCOSE [id number] 07:33:00 Test Item Value Reference Range Comments POC-GLUCOSE METER (BEAKER) 139 mg/dL 70-110 TESTED AT [address] (test cjyi=0115) [place] [address] CBC W/PLT COUNT & AUTO [id number] 07:18:00 Test Item Value Reference Range Comments WHITE BLOOD CELL COUNT (BEAKER) (test grpn=438) 6.0 K/ L 3.5-10.5 RED BLOOD CELL COUNT (BEAKER) (test grgl=676) 2.26 M/ L 3.93-5.22 HEMOGLOBIN (BEAKER) (test plwp=842) 6.9 GM/DL 11.2-15.7 HEMATOCRIT (BEAKER) (test fnmn=981) 21.6 % 34.1-44.9 MEAN CORPUSCULAR VOLUME (BEAKER) (test xsla=951) 95.6 fL 79.4-94.8 MEAN CORPUSCULAR HEMOGLOBIN (BEAKER) (test 30.5 pg 25.6-32.2 oblk=454) MEAN CORPUSCULAR HEMOGLOBIN CONC (BEAKER) (test 31.9 GM/DL 32.2-35.5 ktny=028) RED CELL DISTRIBUTION WIDTH (BEAKER) (test 17.2 % 11.7-14.4 xqhh=720) PLATELET COUNT (BEAKER) (test xjbl=999) 191 K/CU MM 150-450 MEAN PLATELET VOLUME (BEAKER) (test clck=601) 12.8 fL 9.4-12.3 NUCLEATED RED BLOOD CELLS (BEAKER) (test 0 /100 WBC 0-0 othg=799) NEUTROPHILS RELATIVE PERCENT (BEAKER) (test 66 % ndkp=998) LYMPHOCYTES RELATIVE PERCENT (BEAKER) (test 21 % mfhp=309) MONOCYTES RELATIVE PERCENT (BEAKER) (test 8 % xyqj=953) EOSINOPHILS RELATIVE PERCENT (BEAKER) (test 4 % sgsp=176) BASOPHILS RELATIVE PERCENT (BEAKER) (test 1 % kcvl=332) NEUTROPHILS ABSOLUTE COUNT (BEAKER) (test 3.93 K/ L 1.56-6.13 hwuv=424) LYMPHOCYTES ABSOLUTE COUNT (BEAKER) (test 1.23 K/ L 1.18-3.74 bwon=189) MONOCYTES ABSOLUTE COUNT (BEAKER) (test 0.47 K/ L 0.24-0.36 fnfu=689) EOSINOPHILS ABSOLUTE COUNT (BEAKER) (test 0.26 K/ L 0.04-0.36 lpyw=388) BASOPHILS ABSOLUTE COUNT (BEAKER) (test 0.05 K/ L 0.01-0.08 dpen=614) IMMATURE GRANULOCYTES-RELATIVE PERCENT (BEAKER) 1 % 0-1 (test nvwj=3213) BASIC METABOLIC [id number] 07:17:00 Test Item Value Reference Range Comments SODIUM (BEAKER) (test 138 meq/L 136-145 adwi=265) POTASSIUM (BEAKER) (test 4.3 meq/L 3.5-5.1 iefh=743) CHLORIDE (BEAKER) (test 111 meq/L 98-107 ncvl=313) CO2 (BEAKER) (test 21 meq/L 22-29 leaw=418) BLOOD UREA NITROGEN 45 mg/dL 7-21 (BEAKER) (test zwjj=232) CREATININE (BEAKER) (test 2.67 mg/dL 0.57-1.25 uflj=906) GLUCOSE RANDOM (BEAKER) 115 mg/dL 70-105 (test cvzl=733) CALCIUM (BEAKER) (test 7.9 mg/dL 8.4-10.2 uhbh=024) EGFR (BEAKER) (test 18 mL/min/1.73 sq m ESTIMATED GFR IS NOT hved=5189) ACCURATE CREATININE CLEARANCE IN PREDICTING GLOMERULAR FILTRATION RATE. ESTIMATED GFR IS NOT APPLICABLE FOR DIALYSIS PATIENTS. [id number] 07:15:00 Test Item Value Reference Range Comments MAGNESIUM (BEAKER) (test haue=023) 1.7 mg/dL 1.6-2.6 HEMOGLOBIN AND [id number] 06:50:00 Test Item Value Reference Range Comments HEMOGLOBIN (BEAKER) (test anki=148) 7.0 GM/DL 11.2-15.7 HEMATOCRIT (BEAKER) (test agid=690) 22.3 % 34.1-44.9 POCT-GLUCOSE [id number] 21:04:00 Test Item Value Reference Range Comments POC-GLUCOSE METER (BEAKER) 196 mg/dL 70-110 TESTED AT [address] (test znei=0081) [facility] [address] POCT-GLUCOSE [id number] 17:34:00 Test Item Value Reference Range Comments POC-GLUCOSE METER (BEAKER) 114 mg/dL 70-110 TESTED AT [address] (test nlil=9541) [place] [id number] POCT-GLUCOSE [id number] 13:54:00 Test Item Value Reference Range Comments POC-GLUCOSE METER (BEAKER) 145 mg/dL 70-110 TESTED AT [address] (test tkjl=5305) [facility] [address] POCT-GLUCOSE [id number] 08:05:00 Test Item Value Reference Range Comments POC-GLUCOSE METER (BEAKER) 128 mg/dL 70-[address] [facility] [address] [facility] (test qyjw=8430) [facility] [address] BASIC METABOLIC [id number] 05:53:00 Test Item Value Reference Range Comments SODIUM (BEAKER) (test 135 meq/L 136-145 cabr=057) POTASSIUM (BEAKER) (test 4.8 meq/L 3.5-5.1 pfll=541) CHLORIDE (BEAKER) (test 104 meq/L 98-107 rekc=266) CO2 (BEAKER) (test 22 meq/L 22-29 zeej=435) BLOOD UREA NITROGEN 56 mg/dL 7-21 (BEAKER) (test mgjm=801) CREATININE (BEAKER) (test 3.23 mg/dL 0.57-1.25 cnjh=391) GLUCOSE RANDOM (BEAKER) 114 mg/dL 70-105 (test qagx=159) CALCIUM (BEAKER) (test 8.8 mg/dL 8.4-10.2 pich=919) EGFR (BEAKER) (test 14 mL/min/1.73 sq m ESTIMATED GFR IS NOT vdrd=6924) ACCURATE CREATININE CLEARANCE IN PREDICTING GLOMERULAR FILTRATION RATE. ESTIMATED GFR IS NOT APPLICABLE FOR DIALYSIS PATIENTS. [id number] 05:50:00 Test Item Value Reference Range Comments MAGNESIUM (BEAKER) (test trbh=297) 2.1 mg/dL 1.6-2.6 CBC W/PLT COUNT & AUTO [id number] 05:16:00 Test Item Value Reference Range Comments WHITE BLOOD CELL COUNT (BEAKER) (test mrog=606) 6.1 K/ L 3.5-10.5 RED BLOOD CELL COUNT (BEAKER) (test nrrq=148) 2.57 M/ L 3.93-5.22 HEMOGLOBIN (BEAKER) (test ercp=853) 7.6 GM/DL 11.2-15.7 HEMATOCRIT (BEAKER) (test icxt=891) 24.2 % 34.1-44.9 MEAN CORPUSCULAR VOLUME (BEAKER) (test iiay=225) 94.2 fL 79.4-94.8 MEAN CORPUSCULAR HEMOGLOBIN (BEAKER) (test 29.6 pg 25.6-32.2 qfev=148) MEAN CORPUSCULAR HEMOGLOBIN CONC (BEAKER) (test 31.4 GM/DL 32.2-35.5 tnjk=527) RED CELL DISTRIBUTION WIDTH (BEAKER) (test 17.1 % 11.7-14.4 wwvw=874) PLATELET COUNT (BEAKER) (test hedq=996) 204 K/CU MM 150-450 MEAN PLATELET VOLUME (BEAKER) (test dhax=445) 13.0 fL 9.4-12.3 NUCLEATED RED BLOOD CELLS (BEAKER) (test 0 /100 WBC 0-0 mfoh=259) NEUTROPHILS RELATIVE PERCENT (BEAKER) (test 63 % aodl=139) LYMPHOCYTES RELATIVE PERCENT (BEAKER) (test 23 % bbtd=050) MONOCYTES RELATIVE PERCENT (BEAKER) (test 9 % lvct=459) EOSINOPHILS RELATIVE PERCENT (BEAKER) (test 5 % mngi=896) BASOPHILS RELATIVE PERCENT (BEAKER) (test 1 % wofj=201) NEUTROPHILS ABSOLUTE COUNT (BEAKER) (test 3.79 K/ L 1.56-6.13 zyqb=488) LYMPHOCYTES ABSOLUTE COUNT (BEAKER) (test 1.40 K/ L 1.18-3.74 rres=453) MONOCYTES ABSOLUTE COUNT (BEAKER) (test 0.52 K/ L 0.24-0.36 ftlk=679) EOSINOPHILS ABSOLUTE COUNT (BEAKER) (test 0.27 K/ L 0.04-0.36 wplw=502) BASOPHILS ABSOLUTE COUNT (BEAKER) (test 0.05 K/ L 0.01-0.08 qahn=084) IMMATURE GRANULOCYTES-RELATIVE PERCENT (BEAKER) 1 % 0-1 (test kypv=3002) POCT-GLUCOSE [id number] 21:00:00 Test Item Value Reference Range Comments POC-GLUCOSE METER (BEAKER) 316 mg/dL 70-110 Notified SAMAN HERNANDEZ/TESTED AT [facility] (test zqih=8270) [address] [facility] [address] POCT-GLUCOSE [id number] 18:59:00 Test Item Value Reference Range Comments POC-GLUCOSE METER (BEAKER) 187 mg/dL 70-110 TESTED AT [place] [address] [address] (test tgrl=4908) [facility] [address] POCT-GLUCOSE [id number] 11:25:00 Test Item Value Reference Range Comments POC-GLUCOSE METER (BEAKER) 104 mg/dL 70-[address] [facility] [address] [facility] (test uckf=5506) [facility] [address] POCT-GLUCOSE [id number] 07:42:00 Test Item Value Reference Range Comments POC-GLUCOSE METER (BEAKER) 169 mg/dL 70-[address] [facility] [address] [facility] (test dojn=3010) [facility] [address] BASIC METABOLIC [id number] 07:04:00 Test Item Value Reference Range Comments SODIUM (BEAKER) (test 135 meq/L 136-145 upxf=726) POTASSIUM (BEAKER) (test 4.6 meq/L 3.5-5.1 hiyz=717) CHLORIDE (BEAKER) (test 104 meq/L 98-107 lebq=151) CO2 (BEAKER) (test 22 meq/L 22-29 jjrt=061) BLOOD UREA NITROGEN 56 mg/dL 7-21 (BEAKER) (test woei=352) CREATININE (BEAKER) (test 3.28 mg/dL 0.57-1.25 ygab=185) GLUCOSE RANDOM (BEAKER) 141 mg/dL 70-105 (test nrkd=073) CALCIUM (BEAKER) (test 8.8 mg/dL 8.4-10.2 spmy=523) EGFR (BEAKER) (test 14 mL/min/1.73 sq m ESTIMATED GFR IS NOT jpya=9542) ACCURATE CREATININE CLEARANCE IN PREDICTING GLOMERULAR FILTRATION RATE. ESTIMATED GFR IS NOT APPLICABLE FOR DIALYSIS PATIENTS. [id number] 06:36:00 Test Item Value Reference Range Comments MAGNESIUM (BEAKER) (test xasl=675) 2.0 mg/dL 1.6-2.6 CBC W/PLT COUNT & AUTO [id number] 05:40:00 Test Item Value Reference Range Comments WHITE BLOOD CELL COUNT (BEAKER) (test zfxf=478) 6.0 K/ L 3.5-10.5 RED BLOOD CELL COUNT (BEAKER) (test wrxp=624) 2.57 M/ L 3.93-5.22 HEMOGLOBIN (BEAKER) (test qdvk=529) 7.6 GM/DL 11.2-15.7 HEMATOCRIT (BEAKER) (test tuvr=778) 24.4 % 34.1-44.9 MEAN CORPUSCULAR VOLUME (BEAKER) (test kysp=091) 94.9 fL 79.4-94.8 MEAN CORPUSCULAR HEMOGLOBIN (BEAKER) (test 29.6 pg 25.6-32.2 ijeb=730) MEAN CORPUSCULAR HEMOGLOBIN CONC (BEAKER) (test 31.1 GM/DL 32.2-35.5 qkpc=285) RED CELL DISTRIBUTION WIDTH (BEAKER) (test 17.3 % 11.7-14.4 rorw=383) PLATELET COUNT (BEAKER) (test fnql=420) 214 K/CU MM 150-450 MEAN PLATELET VOLUME (BEAKER) (test enhy=902) 13.2 fL 9.4-12.3 NUCLEATED RED BLOOD CELLS (BEAKER) (test 0 /100 WBC 0-0 mhfu=350) NEUTROPHILS RELATIVE PERCENT (BEAKER) (test 60 % wwxs=553) LYMPHOCYTES RELATIVE PERCENT (BEAKER) (test 25 % hdfq=151) MONOCYTES RELATIVE PERCENT (BEAKER) (test 10 % brhh=035) EOSINOPHILS RELATIVE PERCENT (BEAKER) (test 5 % evmc=408) BASOPHILS RELATIVE PERCENT (BEAKER) (test 1 % lltu=692) NEUTROPHILS ABSOLUTE COUNT (BEAKER) (test 3.58 K/ L 1.56-6.13 uyel=633) LYMPHOCYTES ABSOLUTE COUNT (BEAKER) (test 1.50 K/ L 1.18-3.74 xoqr=132) MONOCYTES ABSOLUTE COUNT (BEAKER) (test 0.58 K/ L 0.24-0.36 vfyr=779) EOSINOPHILS ABSOLUTE COUNT (BEAKER) (test 0.29 K/ L 0.04-0.36 odcb=208) BASOPHILS ABSOLUTE COUNT (BEAKER) (test 0.05 K/ L 0.01-0.08 qqum=466) IMMATURE GRANULOCYTES-RELATIVE PERCENT (BEAKER) 0 % 0-1 (test vqos=3786) POCT-GLUCOSE [id number] 21:05:00 Test Item Value Reference Range Comments POC-GLUCOSE METER (BEAKER) 205 mg/dL 70-110 TESTED AT [address] (test tziq=7952) [facility] [address] POCT-GLUCOSE [id number] 16:23:00 Test Item Value Reference Range Comments POC-GLUCOSE METER (BEAKER) 100 mg/dL 70-110 TESTED AT [address] (test mrqc=0391) [facility] [address] POCT-GLUCOSE [id number] 11:43:00 Test Item Value Reference Range Comments POC-GLUCOSE METER (BEAKER) 104 mg/dL 70-110 TESTED AT [address] (test ngde=6078) [place] [id number] POCT-GLUCOSE [id number] 07:22:00 Test Item Value Reference Range Comments POC-GLUCOSE METER (BEAKER) 103 mg/dL 70-110 TESTED AT [address] (test kdat=6502) [facility] [address] BASIC METABOLIC [id number] 05:51:00 Test Item Value Reference Range Comments SODIUM (BEAKER) (test 137 meq/L 136-145 ipgc=525) POTASSIUM (BEAKER) (test 4.7 meq/L 3.5-5.1 otwb=922) CHLORIDE (BEAKER) (test 106 meq/L 98-107 qtsi=850) CO2 (BEAKER) (test 23 meq/L 22-29 ckzc=036) BLOOD UREA NITROGEN 56 mg/dL 7-21 (BEAKER) (test rnlz=421) CREATININE (BEAKER) (test 3.16 mg/dL 0.57-1.25 arip=924) GLUCOSE RANDOM (BEAKER) 77 mg/dL 70-105 (test mgpn=216) CALCIUM (BEAKER) (test 8.9 mg/dL 8.4-10.2 kkpu=367) EGFR (BEAKER) (test 15 mL/min/1.73 sq m ESTIMATED GFR IS NOT hveg=2359) ACCURATE CREATININE CLEARANCE IN PREDICTING GLOMERULAR FILTRATION RATE. ESTIMATED GFR IS NOT APPLICABLE FOR DIALYSIS PATIENTS. [id number] 05:50:00 Test Item Value Reference Range Comments MAGNESIUM (BEAKER) (test gort=789) 2.1 mg/dL 1.6-2.6 CBC W/PLT COUNT & AUTO [id number] 05:28:00 Test Item Value Reference Range Comments WHITE BLOOD CELL COUNT (BEAKER) (test pzmk=838) 6.2 K/ L 3.5-10.5 RED BLOOD CELL COUNT (BEAKER) (test lgcz=108) 2.65 M/ L 3.93-5.22 HEMOGLOBIN (BEAKER) (test eqza=095) 7.7 GM/DL 11.2-15.7 HEMATOCRIT (BEAKER) (test becu=512) 24.8 % 34.1-44.9 MEAN CORPUSCULAR VOLUME (BEAKER) (test opqp=109) 93.6 fL 79.4-94.8 MEAN CORPUSCULAR HEMOGLOBIN (BEAKER) (test 29.1 pg 25.6-32.2 ueku=768) MEAN CORPUSCULAR HEMOGLOBIN CONC (BEAKER) (test 31.0 GM/DL 32.2-35.5 ckyn=959) RED CELL DISTRIBUTION WIDTH (BEAKER) (test 17.4 % 11.7-14.4 mpda=974) PLATELET COUNT (BEAKER) (test fqpc=381) 226 K/CU MM 150-450 MEAN PLATELET VOLUME (BEAKER) (test maur=354) 12.6 fL 9.4-12.3 NUCLEATED RED BLOOD CELLS (BEAKER) (test 0 /100 WBC 0-0 zbut=022) NEUTROPHILS RELATIVE PERCENT (BEAKER) (test 60 % veqk=736) LYMPHOCYTES RELATIVE PERCENT (BEAKER) (test 25 % bdcb=212) MONOCYTES RELATIVE PERCENT (BEAKER) (test 9 % iylm=214) EOSINOPHILS RELATIVE PERCENT (BEAKER) (test 5 % xjtw=406) BASOPHILS RELATIVE PERCENT (BEAKER) (test 1 % rtlt=778) NEUTROPHILS ABSOLUTE COUNT (BEAKER) (test 3.72 K/ L 1.56-6.13 poqt=613) LYMPHOCYTES ABSOLUTE COUNT (BEAKER) (test 1.55 K/ L 1.18-3.74 vgfr=994) MONOCYTES ABSOLUTE COUNT (BEAKER) (test 0.58 K/ L 0.24-0.36 krrc=219) EOSINOPHILS ABSOLUTE COUNT (BEAKER) (test 0.31 K/ L 0.04-0.36 nydh=545) BASOPHILS ABSOLUTE COUNT (BEAKER) (test 0.05 K/ L 0.01-0.08 yjip=748) IMMATURE GRANULOCYTES-RELATIVE PERCENT (BEAKER) 1 % 0-1 (test teky=0410) POCT-GLUCOSE [id number] 20:37:00 Test Item Value Reference Range Comments POC-GLUCOSE METER (BEAKER) 210 mg/dL 70-[address] [facility] [address] [facility] (test gruq=3047) [facility] [address] POCT-GLUCOSE [id number] 16:37:00 Test Item Value Reference Range Comments POC-GLUCOSE METER (BEAKER) 209 mg/dL 70-[address] [facility] [address] [facility] (test ztfa=2541) [facility] [address] POCT-GLUCOSE [id number] 08:41:00 Test Item Value Reference Range Comments POC-GLUCOSE METER (BEAKER) 127 mg/dL 70-[address] [facility] [address] (test ryhz=9818) [facility] [address] BASIC METABOLIC [id number] 06:15:00 Test Item Value Reference Range Comments SODIUM (BEAKER) (test 138 meq/L 136-145 dbgk=846) POTASSIUM (BEAKER) (test 4.9 meq/L 3.5-5.1 ekws=771) CHLORIDE (BEAKER) (test 106 meq/L 98-107 mism=929) CO2 (BEAKER) (test 23 meq/L 22-29 vyjr=236) BLOOD UREA NITROGEN 57 mg/dL 7-21 (BEAKER) (test futf=439) CREATININE (BEAKER) (test 3.35 mg/dL 0.57-1.25 dtou=195) GLUCOSE RANDOM (BEAKER) 108 mg/dL 70-105 (test njtf=765) CALCIUM (BEAKER) (test 8.9 mg/dL 8.4-10.2 awdc=782) EGFR (BEAKER) (test 14 mL/min/1.73 sq m ESTIMATED GFR IS NOT bjwo=0071) ACCURATE CREATININE CLEARANCE IN PREDICTING GLOMERULAR FILTRATION RATE. ESTIMATED GFR IS NOT APPLICABLE FOR DIALYSIS PATIENTS. [id number] 06:14:00 Test Item Value Reference Range Comments PHOSPHORUS (BEAKER) (test yjfb=704) 4.5 mg/dL 2.3-4.7 [id number] 06:14:00 Test Item Value Reference Range Comments MAGNESIUM (BEAKER) (test yfze=905) 2.1 mg/dL 1.6-2.6 CBC W/PLT COUNT & AUTO [id number] 05:51:00 Test Item Value Reference Range Comments WHITE BLOOD CELL COUNT (BEAKER) (test jgoz=729) 6.6 K/ L 3.5-10.5 RED BLOOD CELL COUNT (BEAKER) (test vhrw=504) 2.64 M/ L 3.93-5.22 HEMOGLOBIN (BEAKER) (test jhuk=084) 7.6 GM/DL 11.2-15.7 HEMATOCRIT (BEAKER) (test gucj=841) 24.6 % 34.1-44.9 MEAN CORPUSCULAR VOLUME (BEAKER) (test aqgh=043) 93.2 fL 79.4-94.8 MEAN CORPUSCULAR HEMOGLOBIN (BEAKER) (test 28.8 pg 25.6-32.2 dpxy=909) MEAN CORPUSCULAR HEMOGLOBIN CONC (BEAKER) (test 30.9 GM/DL 32.2-35.5 ropb=621) RED CELL DISTRIBUTION WIDTH (BEAKER) (test 17.3 % 11.7-14.4 oaxx=979) PLATELET COUNT (BEAKER) (test hisg=892) 221 K/CU MM 150-450 MEAN PLATELET VOLUME (BEAKER) (test ttof=058) 13.0 fL 9.4-12.3 NUCLEATED RED BLOOD CELLS (BEAKER) (test 0 /100 WBC 0-0 zlzm=634) NEUTROPHILS RELATIVE PERCENT (BEAKER) (test 62 % knqe=023) LYMPHOCYTES RELATIVE PERCENT (BEAKER) (test 24 % jfek=140) MONOCYTES RELATIVE PERCENT (BEAKER) (test 9 % uphx=431) EOSINOPHILS RELATIVE PERCENT (BEAKER) (test 4 % wris=257) BASOPHILS RELATIVE PERCENT (BEAKER) (test 1 % weom=966) NEUTROPHILS ABSOLUTE COUNT (BEAKER) (test 4.09 K/ L 1.56-6.13 ybve=235) LYMPHOCYTES ABSOLUTE COUNT (BEAKER) (test 1.57 K/ L 1.18-3.74 htoo=288) MONOCYTES ABSOLUTE COUNT (BEAKER) (test 0.61 K/ L 0.24-0.36 rtsa=009) EOSINOPHILS ABSOLUTE COUNT (BEAKER) (test 0.25 K/ L 0.04-0.36 nydm=952) BASOPHILS ABSOLUTE COUNT (BEAKER) (test 0.06 K/ L 0.01-0.08 dfao=928) IMMATURE GRANULOCYTES-RELATIVE PERCENT (BEAKER) 0 % 0-1 (test gsse=5642) POCT-GLUCOSE [id number] 21:17:00 Test Item Value Reference Range Comments POC-GLUCOSE METER (BEAKER) 132 mg/dL 70-110 TESTED AT [address] (test sfim=9437) [place] [id number] POCT-GLUCOSE [id number] 18:13:00 Test Item Value Reference Range Comments POC-GLUCOSE METER (BEAKER) 164 mg/dL 70-110 TESTED AT [address] (test nzwm=0943) [place] [id number] POCT-GLUCOSE [id number] 13:11:00 Test Item Value Reference Range Comments POC-GLUCOSE METER (BEAKER) 135 mg/dL 70-110 TESTED AT [address] (test fgrt=7262) [place] [id number] POCT-GLUCOSE [id number] 08:56:00 Test Item Value Reference Range Comments POC-GLUCOSE METER (BEAKER) 159 mg/dL 70-110 TESTED AT [address] (test rxzd=0383) [place] [id number] POCT-GLUCOSE [id number] 07:29:00 Test Item Value Reference Range Comments POC-GLUCOSE METER (BEAKER) 142 mg/dL 70-110 TESTED AT [address] (test ffcd=4422) [place] [id number] BASIC METABOLIC [id number] 05:57:00 Test Item Value Reference Range Comments SODIUM (BEAKER) (test 137 meq/L 136-145 zlwd=682) POTASSIUM (BEAKER) (test 4.6 meq/L 3.5-5.1 rmoo=527) CHLORIDE (BEAKER) (test 105 meq/L 98-107 zbbl=812) CO2 (BEAKER) (test 22 meq/L 22-29 avfw=957) BLOOD UREA NITROGEN 55 mg/dL 7-21 (BEAKER) (test jsob=300) CREATININE (BEAKER) (test 3.36 mg/dL 0.57-1.25 mtgx=632) GLUCOSE RANDOM (BEAKER) 112 mg/dL 70-105 (test jepz=475) CALCIUM (BEAKER) (test 9.1 mg/dL 8.4-10.2 nrox=559) EGFR (BEAKER) (test 14 mL/min/1.73 sq m ESTIMATED GFR IS NOT nocm=1054) ACCURATE CREATININE CLEARANCE IN PREDICTING GLOMERULAR FILTRATION RATE. ESTIMATED GFR IS NOT APPLICABLE FOR DIALYSIS PATIENTS. [id number] 05:53:00 Test Item Value Reference Range Comments MAGNESIUM (BEAKER) (test tmiy=148) 2.0 mg/dL 1.6-2.6 CBC W/PLT COUNT & AUTO [id number] 05:30:00 Test Item Value Reference Range Comments WHITE BLOOD CELL COUNT (BEAKER) (test lvay=892) 6.6 K/ L 3.5-10.5 RED BLOOD CELL COUNT (BEAKER) (test boiq=105) 2.83 M/ L 3.93-5.22 HEMOGLOBIN (BEAKER) (test cmfn=021) 8.3 GM/DL 11.2-15.7 HEMATOCRIT (BEAKER) (test voyg=963) 26.3 % 34.1-44.9 MEAN CORPUSCULAR VOLUME (BEAKER) (test qddg=769) 92.9 fL 79.4-94.8 MEAN CORPUSCULAR HEMOGLOBIN (BEAKER) (test 29.3 pg 25.6-32.2 lbaq=498) MEAN CORPUSCULAR HEMOGLOBIN CONC (BEAKER) (test 31.6 GM/DL 32.2-35.5 npiv=122) RED CELL DISTRIBUTION WIDTH (BEAKER) (test 17.4 % 11.7-14.4 xbmd=056) PLATELET COUNT (BEAKER) (test rquw=289) 231 K/CU MM 150-450 MEAN PLATELET VOLUME (BEAKER) (test wxda=058) 12.4 fL 9.4-12.3 NUCLEATED RED BLOOD CELLS (BEAKER) (test 0 /100 WBC 0-0 vyyl=186) NEUTROPHILS RELATIVE PERCENT (BEAKER) (test 60 % iylm=696) LYMPHOCYTES RELATIVE PERCENT (BEAKER) (test 25 % zxkq=061) MONOCYTES RELATIVE PERCENT (BEAKER) (test 10 % ohtk=350) EOSINOPHILS RELATIVE PERCENT (BEAKER) (test 4 % qeiq=172) BASOPHILS RELATIVE PERCENT (BEAKER) (test 1 % drbk=409) NEUTROPHILS ABSOLUTE COUNT (BEAKER) (test 3.95 K/ L 1.56-6.13 qufn=736) LYMPHOCYTES ABSOLUTE COUNT (BEAKER) (test 1.66 K/ L 1.18-3.74 kejy=593) MONOCYTES ABSOLUTE COUNT (BEAKER) (test 0.62 K/ L 0.24-0.36 miym=962) EOSINOPHILS ABSOLUTE COUNT (BEAKER) (test 0.27 K/ L 0.04-0.36 zfbk=746) BASOPHILS ABSOLUTE COUNT (BEAKER) (test 0.04 K/ L 0.01-0.08 ilgt=061) IMMATURE GRANULOCYTES-RELATIVE PERCENT (BEAKER) 0 % 0-1 (test vgrn=9969) POCT-GLUCOSE [id number] 21:28:00 Test Item Value Reference Range Comments POC-GLUCOSE METER (BEAKER) 149 mg/dL 70-110 TESTED AT [address] (test raxo=6737) [facility] [address] POCT-GLUCOSE [id number] 17:40:00 Test Item Value Reference Range Comments POC-GLUCOSE METER (BEAKER) 147 mg/dL 70-110 TESTED AT [address] (test gtsg=0676) [facility] [address] POCT-GLUCOSE [id number] 12:14:00 Test Item Value Reference Range Comments POC-GLUCOSE METER (BEAKER) 129 mg/dL 70-110 TESTED AT [address] (test czym=7152) [facility] [address] POCT-GLUCOSE [id number] 07:35:00 Test Item Value Reference Range Comments POC-GLUCOSE METER (BEAKER) 125 mg/dL 70-110 TESTED AT [address] (test irkt=7712) [facility] [address] [id number] 06:48:00 Test Item Value Reference Range Comments MAGNESIUM (BEAKER) (test murd=806) 2.1 mg/dL 1.6-2.6 BASIC METABOLIC [id number] 06:48:00 Test Item Value Reference Range Comments SODIUM (BEAKER) (test 136 meq/L 136-145 vuvx=916) POTASSIUM (BEAKER) (test 4.7 meq/L 3.5-5.1 pygn=181) CHLORIDE (BEAKER) (test 104 meq/L 98-107 dooq=454) CO2 (BEAKER) (test 24 meq/L 22-29 kibg=913) BLOOD UREA NITROGEN 58 mg/dL 7-21 (BEAKER) (test uvyo=111) CREATININE (BEAKER) (test 3.40 mg/dL 0.57-1.25 kglb=106) GLUCOSE RANDOM (BEAKER) 95 mg/dL 70-105 (test jhkp=499) CALCIUM (BEAKER) (test 9.0 mg/dL 8.4-10.2 ibum=838) EGFR (BEAKER) (test 14 mL/min/1.73 sq m ESTIMATED GFR IS NOT iltj=7605) ACCURATE CREATININE CLEARANCE IN PREDICTING GLOMERULAR FILTRATION RATE. ESTIMATED GFR IS NOT APPLICABLE FOR DIALYSIS PATIENTS. CBC W/PLT COUNT & AUTO [id number] 06:05:00 Test Item Value Reference Range Comments WHITE BLOOD CELL COUNT (BEAKER) (test wxgy=958) 6.2 K/ L 3.5-10.5 RED BLOOD CELL COUNT (BEAKER) (test oqny=399) 2.70 M/ L 3.93-5.22 HEMOGLOBIN (BEAKER) (test rwxj=636) 7.9 GM/DL 11.2-15.7 HEMATOCRIT (BEAKER) (test vzey=102) 24.9 % 34.1-44.9 MEAN CORPUSCULAR VOLUME (BEAKER) (test iegp=093) 92.2 fL 79.4-94.8 MEAN CORPUSCULAR HEMOGLOBIN (BEAKER) (test 29.3 pg 25.6-32.2 ifil=282) MEAN CORPUSCULAR HEMOGLOBIN CONC (BEAKER) (test 31.7 GM/DL 32.2-35.5 giwm=851) RED CELL DISTRIBUTION WIDTH (BEAKER) (test 17.7 % 11.7-14.4 xlwy=927) PLATELET COUNT (BEAKER) (test djnh=528) 208 K/CU MM 150-450 MEAN PLATELET VOLUME (BEAKER) (test mhjx=587) 12.6 fL 9.4-12.3 NUCLEATED RED BLOOD CELLS (BEAKER) (test 0 /100 WBC 0-0 ijjv=096) NEUTROPHILS RELATIVE PERCENT (BEAKER) (test 60 % ihew=834) LYMPHOCYTES RELATIVE PERCENT (BEAKER) (test 22 % qwba=599) MONOCYTES RELATIVE PERCENT (BEAKER) (test 11 % ocoe=118) EOSINOPHILS RELATIVE PERCENT (BEAKER) (test 5 % vqbv=644) BASOPHILS RELATIVE PERCENT (BEAKER) (test 1 % nlcr=227) NEUTROPHILS ABSOLUTE COUNT (BEAKER) (test 3.74 K/ L 1.56-6.13 vozn=156) LYMPHOCYTES ABSOLUTE COUNT (BEAKER) (test 1.39 K/ L 1.18-3.74 pnye=819) MONOCYTES ABSOLUTE COUNT (BEAKER) (test 0.68 K/ L 0.24-0.36 mxew=923) EOSINOPHILS ABSOLUTE COUNT (BEAKER) (test 0.31 K/ L 0.04-0.36 koix=350) BASOPHILS ABSOLUTE COUNT (BEAKER) (test 0.06 K/ L 0.01-0.08 zijs=171) IMMATURE GRANULOCYTES-RELATIVE PERCENT (BEAKER) 0 % 0-1 (test ncxt=1384) POCT-GLUCOSE [id number] 21:22:00 Test Item Value Reference Range Comments POC-GLUCOSE METER (BEAKER) 206 mg/dL 70-110 TESTED AT [address] (test devh=2174) [place] [address] POCT-GLUCOSE [id number] 16:23:00 Test Item Value Reference Range Comments POC-GLUCOSE METER (BEAKER) 188 mg/dL 70-110 TESTED AT [address] (test kgvl=3906) [place] [address] POCT-GLUCOSE [id number] 12:37:00 Test Item Value Reference Range Comments POC-GLUCOSE METER (BEAKER) 172 mg/dL 70-110 TESTED AT [address] (test xojh=5180) [place] [address] POCT-GLUCOSE [id number] 11:22:00 Test Item Value Reference Range Comments POC-GLUCOSE METER (BEAKER) 193 mg/dL 70-110 TESTED AT [address] (test xppk=0634) [place] [address] POCT-GLUCOSE [id number] 08:06:00 Test Item Value Reference Range Comments POC-GLUCOSE METER (BEAKER) 143 mg/dL 70-110 TESTED AT [address] (test ltoz=4221) [place] [id number] POCT-GLUCOSE [id number] 07:06:00 Test Item Value Reference Range Comments POC-GLUCOSE METER (BEAKER) 89 mg/dL 70-110 TESTED AT [address] (test zqeb=5250) [place] [id number] BASIC METABOLIC [id number] 06:28:00 Test Item Value Reference Range Comments SODIUM (BEAKER) (test 136 meq/L 136-145 dljb=515) POTASSIUM (BEAKER) (test 4.8 meq/L 3.5-5.1 uokr=831) CHLORIDE (BEAKER) (test 103 meq/L 98-107 dtni=933) CO2 (BEAKER) (test 23 meq/L 22-29 dzqz=560) BLOOD UREA NITROGEN 58 mg/dL 7-21 (BEAKER) (test nidy=759) CREATININE (BEAKER) (test 3.71 mg/dL 0.57-1.25 nyvc=049) GLUCOSE RANDOM (BEAKER) 135 mg/dL 70-105 (test pajv=765) CALCIUM (BEAKER) (test 9.0 mg/dL 8.4-10.2 szur=177) EGFR (BEAKER) (test 12 mL/min/1.73 sq m ESTIMATED GFR IS NOT rlrs=7609) ACCURATE CREATININE CLEARANCE IN PREDICTING GLOMERULAR FILTRATION RATE. ESTIMATED GFR IS NOT APPLICABLE FOR DIALYSIS PATIENTS. [id number] 06:26:00 Test Item Value Reference Range Comments PHOSPHORUS (BEAKER) (test ksql=212) 5.1 mg/dL 2.3-4.7 [id number] 06:26:00 Test Item Value Reference Range Comments MAGNESIUM (BEAKER) (test wkic=303) 2.1 mg/dL 1.6-2.6 CBC W/PLT COUNT & AUTO [id number] 05:53:00 Test Item Value Reference Range Comments WHITE BLOOD CELL COUNT (BEAKER) (test cznn=681) 6.2 K/ L 3.5-10.5 RED BLOOD CELL COUNT (BEAKER) (test oawj=624) 2.73 M/ L 3.93-5.22 HEMOGLOBIN (BEAKER) (test zhjt=754) 8.0 GM/DL 11.2-15.7 HEMATOCRIT (BEAKER) (test utrt=074) 25.0 % 34.1-44.9 MEAN CORPUSCULAR VOLUME (BEAKER) (test zpuy=140) 91.6 fL 79.4-94.8 MEAN CORPUSCULAR HEMOGLOBIN (BEAKER) (test 29.3 pg 25.6-32.2 wuev=008) MEAN CORPUSCULAR HEMOGLOBIN CONC (BEAKER) (test 32.0 GM/DL 32.2-35.5 hahq=113) RED CELL DISTRIBUTION WIDTH (BEAKER) (test 18.1 % 11.7-14.4 azzb=758) PLATELET COUNT (BEAKER) (test qqet=944) 228 K/CU MM 150-450 MEAN PLATELET VOLUME (BEAKER) (test eeos=271) 12.8 fL 9.4-12.3 NUCLEATED RED BLOOD CELLS (BEAKER) (test 0 /100 WBC 0-0 zpyp=420) NEUTROPHILS RELATIVE PERCENT (BEAKER) (test 61 % ayvg=388) LYMPHOCYTES RELATIVE PERCENT (BEAKER) (test 24 % iwpk=680) MONOCYTES RELATIVE PERCENT (BEAKER) (test 10 % mzov=651) EOSINOPHILS RELATIVE PERCENT (BEAKER) (test 4 % uifa=118) BASOPHILS RELATIVE PERCENT (BEAKER) (test 1 % tbdp=115) NEUTROPHILS ABSOLUTE COUNT (BEAKER) (test 3.81 K/ L 1.56-6.13 lnqt=310) LYMPHOCYTES ABSOLUTE COUNT (BEAKER) (test 1.47 K/ L 1.18-3.74 fhwm=602) MONOCYTES ABSOLUTE COUNT (BEAKER) (test 0.64 K/ L 0.24-0.36 actu=673) EOSINOPHILS ABSOLUTE COUNT (BEAKER) (test 0.25 K/ L 0.04-0.36 otip=679) BASOPHILS ABSOLUTE COUNT (BEAKER) (test 0.04 K/ L 0.01-0.08 blqo=060) IMMATURE GRANULOCYTES-RELATIVE PERCENT (BEAKER) 0 % 0-1 (test fino=5940) POCT-GLUCOSE [id number] 18:09:00 Test Item Value Reference Range Comments POC-GLUCOSE METER (BEAKER) 134 mg/dL 70-110 TESTED AT [place] [id number] [facility] (test khsh=2819) [place] [id number] POCT-GLUCOSE [id number] 12:32:00 Test Item Value Reference Range Comments POC-GLUCOSE METER (BEAKER) 133 mg/dL 70-110 TESTED AT [place] [id number] [facility] (test nkui=9194) [facility] [address] EEG AWAKE AND [id number] 11:32:00Reason for exam:->SeizuresShould this be performed at the bedside?->YesDATE OF EXAMINATION: 02/16/18 EEG NO: 1988 CPT: 68973 ICD-10: R56.9 CONDITION OF REPORT: Thisis a [...] of epilepsy. Elbert Santiago MD Departmentof Neurology [facility] POCT-GLUCOSE [id number] 08:52:00 Test Item Value Reference Range Comments POC-GLUCOSE METER (BEAKER) 159 mg/dL 70-[address] [facility] [address] [facility] (test qzie=3586) [facility] [address] B-TYPE NATRIURETIC FACTOR (BNP)2018-02-16 06:29:00 Test Item Value Reference Range Comments B-TYPE NATRIURETIC PEPTIDE (BEAKER) (test 302 pg/mL 0-100 izfr=535) CBC W/PLT COUNT & AUTO [id number] 06:10:00 Test Item Value Reference Range Comments WHITE BLOOD CELL COUNT (BEAKER) (test dwle=459) 5.7 K/ L 3.5-10.5 RED BLOOD CELL COUNT (BEAKER) (test fdcv=799) 2.65 M/ L 3.93-5.22 HEMOGLOBIN (BEAKER) (test qccx=422) 7.7 GM/DL 11.2-15.7 HEMATOCRIT (BEAKER) (test nlgx=128) 24.3 % 34.1-44.9 MEAN CORPUSCULAR VOLUME (BEAKER) (test iqmt=725) 91.7 fL 79.4-94.8 MEAN CORPUSCULAR HEMOGLOBIN (BEAKER) (test 29.1 pg 25.6-32.2 psqi=600) MEAN CORPUSCULAR HEMOGLOBIN CONC (BEAKER) (test 31.7 GM/DL 32.2-35.5 lylt=931) RED CELL DISTRIBUTION WIDTH (BEAKER) (test 18.2 % 11.7-14.4 dxmi=187) PLATELET COUNT (BEAKER) (test tbwm=329) 217 K/CU MM 150-450 MEAN PLATELET VOLUME (BEAKER) (test dpmn=659) 13.4 fL 9.4-12.3 NUCLEATED RED BLOOD CELLS (BEAKER) (test 0 /100 WBC 0-0 ietv=467) NEUTROPHILS RELATIVE PERCENT (BEAKER) (test 55 % isqf=411) LYMPHOCYTES RELATIVE PERCENT (BEAKER) (test 29 % fzob=749) MONOCYTES RELATIVE PERCENT (BEAKER) (test 10 % wuag=926) EOSINOPHILS RELATIVE PERCENT (BEAKER) (test 5 % rwow=389) BASOPHILS RELATIVE PERCENT (BEAKER) (test 1 % iogt=587) NEUTROPHILS ABSOLUTE COUNT (BEAKER) (test 3.16 K/ L 1.56-6.13 dknf=606) LYMPHOCYTES ABSOLUTE COUNT (BEAKER) (test 1.65 K/ L 1.18-3.74 naju=070) MONOCYTES ABSOLUTE COUNT (BEAKER) (test 0.59 K/ L 0.24-0.36 jhqp=447) EOSINOPHILS ABSOLUTE COUNT (BEAKER) (test 0.27 K/ L 0.04-0.36 xsvu=749) BASOPHILS ABSOLUTE COUNT (BEAKER) (test 0.04 K/ L 0.01-0.08 vecv=408) IMMATURE GRANULOCYTES-RELATIVE PERCENT (BEAKER) 0 % 0-1 (test uvaq=3631) BASIC METABOLIC [id number] 06:08:00 Test Item Value Reference Range Comments SODIUM (BEAKER) (test 133 meq/L 136-145 oysz=387) POTASSIUM (BEAKER) (test 4.6 meq/L 3.5-5.1 yhik=330) CHLORIDE (BEAKER) (test 101 meq/L 98-107 ltsy=228) CO2 (BEAKER) (test 22 meq/L 22-29 zddl=812) BLOOD UREA NITROGEN 53 mg/dL 7-21 (BEAKER) (test ocgq=876) CREATININE (BEAKER) (test 3.79 mg/dL 0.57-1.25 ghvb=754) GLUCOSE RANDOM (BEAKER) 131 mg/dL 70-105 (test hqkx=011) CALCIUM (BEAKER) (test 8.6 mg/dL 8.4-10.2 idwn=798) EGFR (BEAKER) (test 12 mL/min/1.73 sq m ESTIMATED GFR IS NOT uwqy=0357) ACCURATE CREATININE CLEARANCE IN PREDICTING GLOMERULAR FILTRATION RATE. ESTIMATED GFR IS NOT APPLICABLE FOR DIALYSIS PATIENTS. [id number] 06:07:00 Test Item Value Reference Range Comments MAGNESIUM (BEAKER) (test jpma=209) 2.0 mg/dL 1.6-2.6 CT, BRAIN, WITHOUT [id number] 03:50:00FINAL REPORT CT, BRAIN, WITHOUT CONTRAST INDICATION: [...] is recommended for further characterization. Signed: JR Manoj, Olga Velez Verified Date/Time: 02/16/2018 03:50:17 Reading Location: [facility] B1 C013Y CT Body Reading Room POCT- GLUCOSE [id number] 21:32:00 Test Item Value Reference Range Comments POC-GLUCOSE METER (BEAKER) 130 mg/dL 70-[address] [facility] [address] [facility] (test llkh=5976) [facility] [address] POCT-GLUCOSE [id number] 16:48:00 Test Item Value Reference Range Comments POC-GLUCOSE METER (BEAKER) 90 mg/dL 70-110 TESTED AT [address] (test myrt=6619) [place] [id number] HEMOGLOBIN AND [id number] 13:03:00 Test Item Value Reference Range Comments HEMOGLOBIN (BEAKER) (test bobn=045) 6.5 GM/DL 11.2-15.7 HEMATOCRIT (BEAKER) (test qjuk=036) 20.7 % 34.1-44.9 Page if hgb < 7POCT-GLUCOSE [id number] 11:14:00 Test Item Value Reference Range Comments POC-GLUCOSE METER (BEAKER) 147 mg/dL 70-110 TESTED AT [address] (test tika=7606) [place] [id number] POCT-GLUCOSE [id number] 07:41:00 Test Item Value Reference Range Comments POC-GLUCOSE METER (BEAKER) 176 mg/dL 70-110 TESTED AT [address] (test jmok=1150) [place] [id number] BASIC METABOLIC [id number] 06:10:00 Test Item Value Reference Range Comments SODIUM (BEAKER) (test 135 meq/L 136-145 yqrs=948) POTASSIUM (BEAKER) (test 4.7 meq/L 3.5-5.1 fcwj=092) CHLORIDE (BEAKER) (test 101 meq/L 98-107 unuq=466) CO2 (BEAKER) (test 23 meq/L 22-29 vcav=399) BLOOD UREA NITROGEN 50 mg/dL 7-21 (BEAKER) (test elin=736) CREATININE (BEAKER) (test 3.78 mg/dL 0.57-1.25 cewf=466) GLUCOSE RANDOM (BEAKER) 136 mg/dL 70-105 (test nyia=000) CALCIUM (BEAKER) (test 8.8 mg/dL 8.4-10.2 snqc=511) EGFR (BEAKER) (test 12 mL/min/1.73 sq m ESTIMATED GFR IS NOT ucps=0781) ACCURATE CREATININE CLEARANCE IN PREDICTING GLOMERULAR FILTRATION RATE. ESTIMATED GFR IS NOT APPLICABLE FOR DIALYSIS PATIENTS. [id number] 06:02:00 Test Item Value Reference Range Comments MAGNESIUM (BEAKER) (test tmsb=490) 1.9 mg/dL 1.6-2.6 CBC W/PLT COUNT & AUTO [id number] 05:47:00 Test Item Value Reference Range Comments WHITE BLOOD CELL COUNT (BEAKER) (test tuwe=597) 7.1 K/ L 3.5-10.5 RED BLOOD CELL COUNT (BEAKER) (test mzau=587) 2.15 M/ L 3.93-5.22 HEMOGLOBIN (BEAKER) (test rkey=628) 6.6 GM/DL 11.2-15.7 HEMATOCRIT (BEAKER) (test wnoj=561) 21.1 % 34.1-44.9 MEAN CORPUSCULAR VOLUME (BEAKER) (test orol=271) 98.1 fL 79.4-94.8 MEAN CORPUSCULAR HEMOGLOBIN (BEAKER) (test 30.7 pg 25.6-32.2 troz=587) MEAN CORPUSCULAR HEMOGLOBIN CONC (BEAKER) (test 31.3 GM/DL 32.2-35.5 wpxy=956) RED CELL DISTRIBUTION WIDTH (BEAKER) (test 13.5 % 11.7-14.4 gjpf=320) PLATELET COUNT (BEAKER) (test glqd=841) 206 K/CU MM 150-450 MEAN PLATELET VOLUME (BEAKER) (test icvw=045) 13.2 fL 9.4-12.3 NUCLEATED RED BLOOD CELLS (BEAKER) (test 0 /100 WBC 0-0 dpsx=368) NEUTROPHILS RELATIVE PERCENT (BEAKER) (test 64 % oizx=690) LYMPHOCYTES RELATIVE PERCENT (BEAKER) (test 21 % qavo=987) MONOCYTES RELATIVE PERCENT (BEAKER) (test 10 % tjob=885) EOSINOPHILS RELATIVE PERCENT (BEAKER) (test 4 % cmfk=555) BASOPHILS RELATIVE PERCENT (BEAKER) (test 1 % cllt=793) NEUTROPHILS ABSOLUTE COUNT (BEAKER) (test 4.54 K/ L 1.56-6.13 wtkl=649) LYMPHOCYTES ABSOLUTE COUNT (BEAKER) (test 1.49 K/ L 1.18-3.74 bslt=255) MONOCYTES ABSOLUTE COUNT (BEAKER) (test 0.70 K/ L 0.24-0.36 qwaj=970) EOSINOPHILS ABSOLUTE COUNT (BEAKER) (test 0.31 K/ L 0.04-0.36 soei=176) BASOPHILS ABSOLUTE COUNT (BEAKER) (test 0.04 K/ L 0.01-0.08 lfun=307) IMMATURE GRANULOCYTES-RELATIVE PERCENT (BEAKER) 1 % 0-1 (test pwfu=6270) POCT-GLUCOSE [id number] 21:17:00 Test Item Value Reference Range Comments POC-GLUCOSE METER (BEAKER) 235 mg/dL 70-110 TESTED AT [address] (test yuoy=5590) [facility] [id number] POCT-GLUCOSE [id number] 17:07:00 Test Item Value Reference Range Comments POC-GLUCOSE METER (BEAKER) 304 mg/dL 70-110 Notified SAMAN HERNANDEZ/TESTED AT [facility] (test qjcq=1281) [address] [place] [id number] POCT-GLUCOSE [id number] 12:13:00 Test Item Value Reference Range Comments POC-GLUCOSE METER (BEAKER) 225 mg/dL 70-110 TESTED AT [address] (test oqyg=8527) [facility] [address] POCT-GLUCOSE [id number] 08:01:00 Test Item Value Reference Range Comments POC-GLUCOSE METER (BEAKER) 177 mg/dL 70-110 TESTED AT [address] (test qage=2232) [facility] [address] BASIC METABOLIC [id number] 07:41:00 Test Item Value Reference Range Comments SODIUM (BEAKER) (test 132 meq/L 136-145 xrof=319) POTASSIUM (BEAKER) (test 4.7 meq/L 3.5-5.1 lhil=486) CHLORIDE (BEAKER) (test 100 meq/L 98-107 cnrs=134) CO2 (BEAKER) (test 23 meq/L 22-29 eagk=173) BLOOD UREA NITROGEN 45 mg/dL 7-21 (BEAKER) (test bjmn=874) CREATININE (BEAKER) (test 3.50 mg/dL 0.57-1.25 yeuq=606) GLUCOSE RANDOM (BEAKER) 153 mg/dL 70-105 (test ptjn=173) CALCIUM (BEAKER) (test 8.8 mg/dL 8.4-10.2 zcqh=202) EGFR (BEAKER) (test 13 mL/min/1.73 sq m ESTIMATED GFR IS NOT guxu=8803) ACCURATE CREATININE CLEARANCE IN PREDICTING GLOMERULAR FILTRATION RATE. ESTIMATED GFR IS NOT APPLICABLE FOR DIALYSIS PATIENTS. [id number] 07:34:00 Test Item Value Reference Range Comments MAGNESIUM (BEAKER) (test kahk=412) 1.9 mg/dL 1.6-2.6 CBC W/PLT COUNT & AUTO [id number] 06:18:00 Test Item Value Reference Range Comments WHITE BLOOD CELL COUNT (BEAKER) (test ybmt=267) 7.4 K/ L 3.5-10.5 RED BLOOD CELL COUNT (BEAKER) (test pjwq=266) 2.32 M/ L 3.93-5.22 HEMOGLOBIN (BEAKER) (test dfui=400) 7.1 GM/DL 11.2-15.7 HEMATOCRIT (BEAKER) (test yzxz=021) 22.6 % 34.1-44.9 MEAN CORPUSCULAR VOLUME (BEAKER) (test exmp=008) 97.4 fL 79.4-94.8 MEAN CORPUSCULAR HEMOGLOBIN (BEAKER) (test 30.6 pg 25.6-32.2 locs=650) MEAN CORPUSCULAR HEMOGLOBIN CONC (BEAKER) (test 31.4 GM/DL 32.2-35.5 gxfj=944) RED CELL DISTRIBUTION WIDTH (BEAKER) (test 13.8 % 11.7-14.4 iguh=151) PLATELET COUNT (BEAKER) (test fdmd=311) 226 K/CU MM 150-450 MEAN PLATELET VOLUME (BEAKER) (test joqq=674) 12.6 fL 9.4-12.3 NUCLEATED RED BLOOD CELLS (BEAKER) (test 0 /100 WBC 0-0 urud=758) NEUTROPHILS RELATIVE PERCENT (BEAKER) (test 65 % ulwh=861) LYMPHOCYTES RELATIVE PERCENT (BEAKER) (test 21 % mzky=289) MONOCYTES RELATIVE PERCENT (BEAKER) (test 9 % voei=529) EOSINOPHILS RELATIVE PERCENT (BEAKER) (test 4 % bjfr=656) BASOPHILS RELATIVE PERCENT (BEAKER) (test 1 % ezcd=547) NEUTROPHILS ABSOLUTE COUNT (BEAKER) (test 4.84 K/ L 1.56-6.13 eqbm=963) LYMPHOCYTES ABSOLUTE COUNT (BEAKER) (test 1.52 K/ L 1.18-3.74 lezy=913) MONOCYTES ABSOLUTE COUNT (BEAKER) (test 0.66 K/ L 0.24-0.36 bckw=432) EOSINOPHILS ABSOLUTE COUNT (BEAKER) (test 0.32 K/ L 0.04-0.36 ziba=615) BASOPHILS ABSOLUTE COUNT (BEAKER) (test 0.04 K/ L 0.01-0.08 kczf=501) IMMATURE GRANULOCYTES-RELATIVE PERCENT (BEAKER) 0 % 0-1 (test fvmc=7600) POCT-GLUCOSE [id number] 21:21:00 Test Item Value Reference Range Comments POC-GLUCOSE METER (BEAKER) 188 mg/dL 70-110 TESTED AT [address] (test knwr=9873) [place] [id number] POCT-GLUCOSE [id number] 17:03:00 Test Item Value Reference Range Comments POC-GLUCOSE METER (BEAKER) 262 mg/dL 70-110 TESTED AT [address] (test zssu=0955) [place] [id number] POCT-GLUCOSE [id number] 12:03:00 Test Item Value Reference Range Comments POC-GLUCOSE METER (BEAKER) 193 mg/dL 70-110 TESTED AT [address] (test vtyh=4214) [facility] [address] POCT-GLUCOSE [id number] 08:18:00 Test Item Value Reference Range Comments POC-GLUCOSE METER (BEAKER) 219 mg/dL 70-110 TESTED AT [address] (test ymgm=5221) [facility] [address] BASIC METABOLIC [id number] 06:54:00 Test Item Value Reference Range Comments SODIUM (BEAKER) (test 133 meq/L 136-145 oecw=154) POTASSIUM (BEAKER) (test 4.5 meq/L 3.5-5.1 mwsn=871) CHLORIDE (BEAKER) (test 101 meq/L 98-107 luna=999) CO2 (BEAKER) (test 24 meq/L 22-29 xcdj=717) BLOOD UREA NITROGEN 42 mg/dL 7-21 (BEAKER) (test eocu=607) CREATININE (BEAKER) (test 3.61 mg/dL 0.57-1.25 gxqp=103) GLUCOSE RANDOM (BEAKER) 186 mg/dL 70-105 (test niys=055) CALCIUM (BEAKER) (test 8.4 mg/dL 8.4-10.2 uqld=051) EGFR (BEAKER) (test 13 mL/min/1.73 sq m ESTIMATED GFR IS NOT ynvi=3404) ACCURATE CREATININE CLEARANCE IN PREDICTING GLOMERULAR FILTRATION RATE. ESTIMATED GFR IS NOT APPLICABLE FOR DIALYSIS PATIENTS. [id number] 06:39:00 Test Item Value Reference Range Comments PHOSPHORUS (BEAKER) (test lzua=517) 4.5 mg/dL 2.3-4.7 [id number] 06:39:00 Test Item Value Reference Range Comments MAGNESIUM (BEAKER) (test eotk=714) 2.1 mg/dL 1.6-2.6 CBC W/PLT COUNT & AUTO [id number] 05:31:00 Test Item Value Reference Range Comments WHITE BLOOD CELL COUNT (BEAKER) (test xoeo=950) 7.3 K/ L 3.5-10.5 RED BLOOD CELL COUNT (BEAKER) (test yvgk=998) 2.27 M/ L 3.93-5.22 HEMOGLOBIN (BEAKER) (test nivp=503) 7.0 GM/DL 11.2-15.7 HEMATOCRIT (BEAKER) (test frfa=588) 22.1 % 34.1-44.9 MEAN CORPUSCULAR VOLUME (BEAKER) (test axgd=064) 97.4 fL 79.4-94.8 MEAN CORPUSCULAR HEMOGLOBIN (BEAKER) (test 30.8 pg 25.6-32.2 jbeu=276) MEAN CORPUSCULAR HEMOGLOBIN CONC (BEAKER) (test 31.7 GM/DL 32.2-35.5 gtvh=881) RED CELL DISTRIBUTION WIDTH (BEAKER) (test 13.5 % 11.7-14.4 nxjc=031) PLATELET COUNT (BEAKER) (test bqzx=066) 195 K/CU MM 150-450 MEAN PLATELET VOLUME (BEAKER) (test nzrx=195) 13.2 fL 9.4-12.3 NUCLEATED RED BLOOD CELLS (BEAKER) (test 0 /100 WBC 0-0 dmld=615) NEUTROPHILS RELATIVE PERCENT (BEAKER) (test 65 % xwop=963) LYMPHOCYTES RELATIVE PERCENT (BEAKER) (test 21 % tuju=025) MONOCYTES RELATIVE PERCENT (BEAKER) (test 9 % cywk=562) EOSINOPHILS RELATIVE PERCENT (BEAKER) (test 4 % iwtc=114) BASOPHILS RELATIVE PERCENT (BEAKER) (test 1 % kggb=413) NEUTROPHILS ABSOLUTE COUNT (BEAKER) (test 4.75 K/ L 1.56-6.13 ogao=914) LYMPHOCYTES ABSOLUTE COUNT (BEAKER) (test 1.51 K/ L 1.18-3.74 itxi=961) MONOCYTES ABSOLUTE COUNT (BEAKER) (test 0.65 K/ L 0.24-0.36 cctw=474) EOSINOPHILS ABSOLUTE COUNT (BEAKER) (test 0.31 K/ L 0.04-0.36 nvgw=798) BASOPHILS ABSOLUTE COUNT (BEAKER) (test 0.04 K/ L 0.01-0.08 knoq=799) IMMATURE GRANULOCYTES-RELATIVE PERCENT (BEAKER) 1 % 0-1 (test iogf=3476) POCT-GLUCOSE [id number] 20:31:00 Test Item Value Reference Range Comments POC-GLUCOSE METER (BEAKER) 246 mg/dL 70-110 TESTED AT [address] (test oket=5946) [place] [address] POCT-GLUCOSE [id number] 19:09:00 Test Item Value Reference Range Comments POC-GLUCOSE METER (BEAKER) 272 mg/dL 70-110 TESTED AT [address] (test ojop=1960) [place] [address] POCT-GLUCOSE [id number] 17:42:00 Test Item Value Reference Range Comments POC-GLUCOSE METER (BEAKER) 297 mg/dL 70-110 TESTED AT [address] (test yfca=8278) [place] [address] POCT-GLUCOSE [id number] 12:46:00 Test Item Value Reference Range Comments POC-GLUCOSE METER (BEAKER) 183 mg/dL 70-110 TESTED AT [address] (test ccvt=3978) [place] [id number] POCT-GLUCOSE [id number] 08:08:00 Test Item Value Reference Range Comments POC-GLUCOSE METER (BEAKER) 207 mg/dL 70-110 TESTED AT [address] (test fkvq=0306) [place] [id number] BASIC METABOLIC [id number] 06:34:00 Test Item Value Reference Range Comments SODIUM (BEAKER) (test 135 meq/L 136-145 xdyx=587) POTASSIUM (BEAKER) (test 4.2 meq/L 3.5-5.1 dsch=527) CHLORIDE (BEAKER) (test 100 meq/L 98-107 zdpg=824) CO2 (BEAKER) (test 26 meq/L 22-29 fltc=146) BLOOD UREA NITROGEN 36 mg/dL 7-21 (BEAKER) (test lhgh=090) CREATININE (BEAKER) (test 3.69 mg/dL 0.57-1.25 yyzx=456) GLUCOSE RANDOM (BEAKER) 166 mg/dL 70-105 (test hzkv=561) CALCIUM (BEAKER) (test 8.8 mg/dL 8.4-10.2 lcyh=382) EGFR (BEAKER) (test 12 mL/min/1.73 sq m ESTIMATED GFR IS NOT eotl=1123) ACCURATE CREATININE CLEARANCE IN PREDICTING GLOMERULAR FILTRATION RATE. ESTIMATED GFR IS NOT APPLICABLE FOR DIALYSIS PATIENTS. [id number] 06:28:00 Test Item Value Reference Range Comments MAGNESIUM (BEAKER) (test qwrj=909) 1.6 mg/dL 1.6-2.6 CBC W/PLT COUNT & AUTO [id number] 06:12:00 Test Item Value Reference Range Comments WHITE BLOOD CELL COUNT (BEAKER) (test qtfe=658) 7.3 K/ L 3.5-10.5 RED BLOOD CELL COUNT (BEAKER) (test hsmw=465) 2.28 M/ L 3.93-5.22 HEMOGLOBIN (BEAKER) (test ibuc=513) 7.0 GM/DL 11.2-15.7 HEMATOCRIT (BEAKER) (test vplw=930) 22.0 % 34.1-44.9 MEAN CORPUSCULAR VOLUME (BEAKER) (test szla=403) 96.5 fL 79.4-94.8 MEAN CORPUSCULAR HEMOGLOBIN (BEAKER) (test 30.7 pg 25.6-32.2 wvjo=416) MEAN CORPUSCULAR HEMOGLOBIN CONC (BEAKER) (test 31.8 GM/DL 32.2-35.5 ashp=724) RED CELL DISTRIBUTION WIDTH (BEAKER) (test 13.3 % 11.7-14.4 cbai=737) PLATELET COUNT (BEAKER) (test lpah=468) 200 K/CU MM 150-450 MEAN PLATELET VOLUME (BEAKER) (test tgyc=801) 12.8 fL 9.4-12.3 NUCLEATED RED BLOOD CELLS (BEAKER) (test 0 /100 WBC 0-0 qdat=552) NEUTROPHILS RELATIVE PERCENT (BEAKER) (test 65 % ense=753) LYMPHOCYTES RELATIVE PERCENT (BEAKER) (test 22 % hctl=658) MONOCYTES RELATIVE PERCENT (BEAKER) (test 9 % dfhq=531) EOSINOPHILS RELATIVE PERCENT (BEAKER) (test 4 % sfet=925) BASOPHILS RELATIVE PERCENT (BEAKER) (test 0 % smnr=293) NEUTROPHILS ABSOLUTE COUNT (BEAKER) (test 4.71 K/ L 1.56-6.13 xvmz=952) LYMPHOCYTES ABSOLUTE COUNT (BEAKER) (test 1.58 K/ L 1.18-3.74 tzme=988) MONOCYTES ABSOLUTE COUNT (BEAKER) (test 0.65 K/ L 0.24-0.36 mfkh=691) EOSINOPHILS ABSOLUTE COUNT (BEAKER) (test 0.27 K/ L 0.04-0.36 unzm=954) BASOPHILS ABSOLUTE COUNT (BEAKER) (test 0.03 K/ L 0.01-0.08 qyhg=076) IMMATURE GRANULOCYTES-RELATIVE PERCENT (BEAKER) 0 % 0-1 (test kvut=6521) POCT-GLUCOSE [id number] 21:22:00 Test Item Value Reference Range Comments POC-GLUCOSE METER (BEAKER) 279 mg/dL 70-110 TESTED AT [address] (test jvmx=0676) [place] [id number] POCT-GLUCOSE [id number] 17:16:00 Test Item Value Reference Range Comments POC-GLUCOSE METER (BEAKER) 190 mg/dL 70-110 TESTED AT [address] (test pfgx=2468) [place] [id number] POCT-GLUCOSE [id number] 17:04:00 Test Item Value Reference Range Comments POC-GLUCOSE METER (BEAKER) 197 mg/dL 70-110 TESTED AT [address] (test fchb=2322) [place] [address] POCT-GLUCOSE [id number] 13:29:00 Test Item Value Reference Range Comments POC-GLUCOSE METER (BEAKER) 190 mg/dL 70-110 TESTED AT [address] (test gsgb=9949) [place] [address] POCT-GLUCOSE [id number] 08:27:00 Test Item Value Reference Range Comments POC-GLUCOSE METER (BEAKER) 236 mg/dL 70-[address] [facility] [address] (test urnq=5733) [facility] [address] BASIC METABOLIC [id number] 06:50:00 Test Item Value Reference Range Comments SODIUM (BEAKER) (test 134 meq/L 136-145 pisv=738) POTASSIUM (BEAKER) (test 4.4 meq/L 3.5-5.1 fwyr=741) CHLORIDE (BEAKER) (test 99 meq/L 98-107 zrig=920) CO2 (BEAKER) (test 26 meq/L 22-29 sshj=634) BLOOD UREA NITROGEN 33 mg/dL 7-21 (BEAKER) (test vdra=824) CREATININE (BEAKER) (test 3.65 mg/dL 0.57-1.25 uqey=614) GLUCOSE RANDOM (BEAKER) 185 mg/dL 70-105 (test nclf=548) CALCIUM (BEAKER) (test 8.7 mg/dL 8.4-10.2 onqd=186) EGFR (BEAKER) (test 12 mL/min/1.73 sq m ESTIMATED GFR IS NOT wtzk=4968) ACCURATE CREATININE CLEARANCE IN PREDICTING GLOMERULAR FILTRATION RATE. ESTIMATED GFR IS NOT APPLICABLE FOR DIALYSIS PATIENTS. [id number] 06:47:00 Test Item Value Reference Range Comments MAGNESIUM (BEAKER) (test mtol=599) 1.6 mg/dL 1.6-2.6 CBC W/PLT COUNT & AUTO [id number] 06:21:00 Test Item Value Reference Range Comments WHITE BLOOD CELL COUNT (BEAKER) (test rvjo=143) 8.5 K/ L 3.5-10.5 RED BLOOD CELL COUNT (BEAKER) (test yqry=964) 2.41 M/ L 3.93-5.22 HEMOGLOBIN (BEAKER) (test kwek=949) 7.5 GM/DL 11.2-15.7 HEMATOCRIT (BEAKER) (test ttbc=498) 23.4 % 34.1-44.9 MEAN CORPUSCULAR VOLUME (BEAKER) (test cocy=629) 97.1 fL 79.4-94.8 MEAN CORPUSCULAR HEMOGLOBIN (BEAKER) (test 31.1 pg 25.6-32.2 tofk=482) MEAN CORPUSCULAR HEMOGLOBIN CONC (BEAKER) (test 32.1 GM/DL 32.2-35.5 jpfa=113) RED CELL DISTRIBUTION WIDTH (BEAKER) (test 13.1 % 11.7-14.4 hjcz=487) PLATELET COUNT (BEAKER) (test jhuv=279) 200 K/CU MM 150-450 MEAN PLATELET VOLUME (BEAKER) (test ibtv=550) 12.8 fL 9.4-12.3 NUCLEATED RED BLOOD CELLS (BEAKER) (test 0 /100 WBC 0-0 xlhx=672) NEUTROPHILS RELATIVE PERCENT (BEAKER) (test 72 % zhvt=462) LYMPHOCYTES RELATIVE PERCENT (BEAKER) (test 16 % qcmj=303) MONOCYTES RELATIVE PERCENT (BEAKER) (test 7 % yvsu=283) EOSINOPHILS RELATIVE PERCENT (BEAKER) (test 5 % ujdk=796) BASOPHILS RELATIVE PERCENT (BEAKER) (test 1 % atfk=147) NEUTROPHILS ABSOLUTE COUNT (BEAKER) (test 6.09 K/ L 1.56-6.13 xszy=295) LYMPHOCYTES ABSOLUTE COUNT (BEAKER) (test 1.32 K/ L 1.18-3.74 xovd=769) MONOCYTES ABSOLUTE COUNT (BEAKER) (test 0.59 K/ L 0.24-0.36 hese=396) EOSINOPHILS ABSOLUTE COUNT (BEAKER) (test 0.39 K/ L 0.04-0.36 pfca=338) BASOPHILS ABSOLUTE COUNT (BEAKER) (test 0.04 K/ L 0.01-0.08 aipa=181) IMMATURE GRANULOCYTES-RELATIVE PERCENT (BEAKER) 1 % 0-1 (test qkhj=2493) POCT-GLUCOSE [id number] 21:03:00 Test Item Value Reference Range Comments POC-GLUCOSE METER (BEAKER) 179 mg/dL 70-110 TESTED AT [address] (test uank=4623) [facility] [address] POCT-GLUCOSE [id number] 17:36:00 Test Item Value Reference Range Comments POC-GLUCOSE METER (BEAKER) 184 mg/dL 70-110 TESTED AT [address] (test xacz=8162) [facility] [address] POCT-GLUCOSE [id number] 17:15:00 Test Item Value Reference Range Comments POC-GLUCOSE METER (BEAKER) 196 mg/dL 70-110 TESTED AT [facility] [address] (test cgdo=9213) [facility] [address] POCT-GLUCOSE [id number] 12:00:00 Test Item Value Reference Range Comments POC-GLUCOSE METER (BEAKER) 179 mg/dL 70-[address] [facility] [address] [facility] (test kdbk=5341) [facility] [address] POCT-GLUCOSE [id number] 08:12:00 Test Item Value Reference Range Comments POC-GLUCOSE METER (BEAKER) 221 mg/dL 70-110 TESTED AT [place] [id number] [facility] (test wiqc=5212) [facility] [address] BASIC METABOLIC [id number] 07:21:00 Test Item Value Reference Range Comments SODIUM (BEAKER) (test 135 meq/L 136-145 qyeh=620) POTASSIUM (BEAKER) (test 4.5 meq/L 3.5-5.1 xvfg=164) CHLORIDE (BEAKER) (test 99 meq/L 98-107 ppqi=063) CO2 (BEAKER) (test 28 meq/L 22-29 bkty=224) BLOOD UREA NITROGEN 25 mg/dL 7-21 (BEAKER) (test myys=798) CREATININE (BEAKER) (test 3.07 mg/dL 0.57-1.25 qwlh=279) GLUCOSE RANDOM (BEAKER) 192 mg/dL 70-105 (test vubi=070) CALCIUM (BEAKER) (test 8.5 mg/dL 8.4-10.2 ouxe=044) EGFR (BEAKER) (test 15 mL/min/1.73 sq m ESTIMATED GFR IS NOT yait=1288) ACCURATE CREATININE CLEARANCE IN PREDICTING GLOMERULAR FILTRATION RATE. ESTIMATED GFR IS NOT APPLICABLE FOR DIALYSIS PATIENTS. [id number] 07:20:00 Test Item Value Reference Range Comments PHOSPHORUS (BEAKER) (test dgxe=721) 3.6 mg/dL 2.3-4.7 [id number] 07:20:00 Test Item Value Reference Range Comments MAGNESIUM (BEAKER) (test moeb=960) 1.7 mg/dL 1.6-2.6 CBC W/PLT COUNT & AUTO [id number] 07:04:00 Test Item Value Reference Range Comments WHITE BLOOD CELL COUNT (BEAKER) (test celr=007) 7.8 K/ L 3.5-10.5 RED BLOOD CELL COUNT (BEAKER) (test vbzs=491) 2.30 M/ L 3.93-5.22 HEMOGLOBIN (BEAKER) (test vozh=198) 7.1 GM/DL 11.2-15.7 HEMATOCRIT (BEAKER) (test xbha=876) 22.7 % 34.1-44.9 MEAN CORPUSCULAR VOLUME (BEAKER) (test fzly=926) 98.7 fL 79.4-94.8 MEAN CORPUSCULAR HEMOGLOBIN (BEAKER) (test 30.9 pg 25.6-32.2 ygbr=621) MEAN CORPUSCULAR HEMOGLOBIN CONC (BEAKER) (test 31.3 GM/DL 32.2-35.5 mpdq=494) RED CELL DISTRIBUTION WIDTH (BEAKER) (test 13.3 % 11.7-14.4 omnn=464) PLATELET COUNT (BEAKER) (test zcog=573) 206 K/CU MM 150-450 MEAN PLATELET VOLUME (BEAKER) (test spyn=830) 12.8 fL 9.4-12.3 NUCLEATED RED BLOOD CELLS (BEAKER) (test 0 /100 WBC 0-0 vacc=563) NEUTROPHILS RELATIVE PERCENT (BEAKER) (test 64 % lsey=670) LYMPHOCYTES RELATIVE PERCENT (BEAKER) (test 21 % llbl=194) MONOCYTES RELATIVE PERCENT (BEAKER) (test 8 % bvhm=580) EOSINOPHILS RELATIVE PERCENT (BEAKER) (test 6 % bcxp=182) BASOPHILS RELATIVE PERCENT (BEAKER) (test 1 % nbxn=631) NEUTROPHILS ABSOLUTE COUNT (BEAKER) (test 5.00 K/ L 1.56-6.13 baxl=898) LYMPHOCYTES ABSOLUTE COUNT (BEAKER) (test 1.66 K/ L 1.18-3.74 wawm=950) MONOCYTES ABSOLUTE COUNT (BEAKER) (test 0.65 K/ L 0.24-0.36 lntj=583) EOSINOPHILS ABSOLUTE COUNT (BEAKER) (test 0.44 K/ L 0.04-0.36 uapt=505) BASOPHILS ABSOLUTE COUNT (BEAKER) (test 0.05 K/ L 0.01-0.08 qoym=590) IMMATURE GRANULOCYTES-RELATIVE PERCENT (BEAKER) 1 % 0-1 (test ikqz=6824) POCT-GLUCOSE [id number] 21:03:00 Test Item Value Reference Range Comments POC-GLUCOSE METER (BEAKER) 243 mg/dL 70-110 TESTED AT [address] (test qylt=5785) [facility] [address] POCT-GLUCOSE [id number] 18:12:00 Test Item Value Reference Range Comments POC-GLUCOSE METER (BEAKER) 233 mg/dL 70-110 TESTED AT [address] (test xxds=4536) [facility] [address] POCT-GLUCOSE [id number] 12:29:00 Test Item Value Reference Range Comments POC-GLUCOSE METER (BEAKER) 185 mg/dL 70-110 TESTED AT [address] (test mlsv=1956) [facility] [address] POCT-GLUCOSE [id number] 07:05:00 Test Item Value Reference Range Comments POC-GLUCOSE METER (BEAKER) 114 mg/dL 70-110 TESTED AT [address] (test vvjz=5816) [facility] [address] [id number] 06:33:00 Test Item Value Reference Range Comments PHOSPHORUS (BEAKER) (test jalb=291) 2.6 mg/dL 2.3-4.7 [id number] 06:33:00 Test Item Value Reference Range Comments MAGNESIUM (BEAKER) (test hxxx=597) 1.7 mg/dL 1.6-2.6 COMPREHENSIVE METABOLIC [id number] 06:33:00 Test Item Value Reference Range Comments TOTAL PROTEIN (BEAKER) 6.4 gm/dL 6.0-8.3 (test kfjt=426) ALBUMIN (BEAKER) (test 2.8 g/dL 3.5-5.0 kpvi=1534) ALKALINE PHOSPHATASE 95 U/L 40-150 (BEAKER) (test afln=082) BILIRUBIN TOTAL (BEAKER) 0.2 mg/dL 0.2-1.2 (test laow=361) SODIUM (BEAKER) (test 138 meq/L 136-145 sdtm=091) POTASSIUM (BEAKER) (test 3.9 meq/L 3.5-5.1 zkrm=662) CHLORIDE (BEAKER) (test 102 meq/L 98-107 pvnb=994) CO2 (BEAKER) (test 29 meq/L 22-29 rbku=589) BLOOD UREA NITROGEN 12 mg/dL 7-21 (BEAKER) (test ndrd=104) CREATININE (BEAKER) (test 2.08 mg/dL 0.57-1.25 necw=271) GLUCOSE RANDOM (BEAKER) 79 mg/dL 70-105 (test aopg=449) CALCIUM (BEAKER) (test 8.3 mg/dL 8.4-10.2 usxp=689) AST (SGOT) (BEAKER) (test 17 U/L 5-34 gtjl=906) ALT (SGPT) (BEAKER) (test 16 U/L 6-55 njxl=415) EGFR (BEAKER) (test 24 mL/min/1.73 sq m ESTIMATED GFR IS NOT fsek=3722) ACCURATE CREATININE CLEARANCE IN PREDICTING GLOMERULAR FILTRATION RATE. ESTIMATED GFR IS NOT APPLICABLE FOR DIALYSIS PATIENTS. CBC W/PLT COUNT & AUTO [id number] 06:13:00 Test Item Value Reference Range Comments WHITE BLOOD CELL COUNT (BEAKER) (test jyib=948) 8.1 K/ L 3.5-10.5 RED BLOOD CELL COUNT (BEAKER) (test iaof=238) 2.41 M/ L 3.93-5.22 HEMOGLOBIN (BEAKER) (test aspj=171) 7.4 GM/DL 11.2-15.7 HEMATOCRIT (BEAKER) (test xihq=650) 23.7 % 34.1-44.9 MEAN CORPUSCULAR VOLUME (BEAKER) (test cifd=241) 98.3 fL 79.4-94.8 MEAN CORPUSCULAR HEMOGLOBIN (BEAKER) (test 30.7 pg 25.6-32.2 icow=374) MEAN CORPUSCULAR HEMOGLOBIN CONC (BEAKER) (test 31.2 GM/DL 32.2-35.5 ydzg=624) RED CELL DISTRIBUTION WIDTH (BEAKER) (test 13.2 % 11.7-14.4 scpa=025) PLATELET COUNT (BEAKER) (test eokf=016) 215 K/CU MM 150-450 MEAN PLATELET VOLUME (BEAKER) (test iual=576) 12.5 fL 9.4-12.3 NUCLEATED RED BLOOD CELLS (BEAKER) (test 0 /100 WBC 0-0 cemm=851) NEUTROPHILS RELATIVE PERCENT (BEAKER) (test 63 % uuzv=586) LYMPHOCYTES RELATIVE PERCENT (BEAKER) (test 21 % wbew=326) MONOCYTES RELATIVE PERCENT (BEAKER) (test 11 % qcou=355) EOSINOPHILS RELATIVE PERCENT (BEAKER) (test 4 % tapr=524) BASOPHILS RELATIVE PERCENT (BEAKER) (test 1 % xhmf=275) NEUTROPHILS ABSOLUTE COUNT (BEAKER) (test 5.10 K/ L 1.56-6.13 zusm=992) LYMPHOCYTES ABSOLUTE COUNT (BEAKER) (test 1.71 K/ L 1.18-3.74 rpiu=330) MONOCYTES ABSOLUTE COUNT (BEAKER) (test 0.85 K/ L 0.24-0.36 ofia=716) EOSINOPHILS ABSOLUTE COUNT (BEAKER) (test 0.34 K/ L 0.04-0.36 jcbp=118) BASOPHILS ABSOLUTE COUNT (BEAKER) (test 0.05 K/ L 0.01-0.08 fxva=138) IMMATURE GRANULOCYTES-RELATIVE PERCENT (BEAKER) 0 % 0-1 (test yrkc=0382) CALCIUM, [id number] 05:45:00 Test Item Value Reference Range Comments CALCIUM IONIZED (BEAKER) (test gnqy=204) 1.04 mmol/L 1.12-1.27 PH, BLOOD (BEAKER) (test vwue=0076) 7.45 POCT-GLUCOSE [id number] 21:16:00 Test Item Value Reference Range Comments POC-GLUCOSE METER (BEAKER) 193 mg/dL 70-110 TESTED AT [address] (test exjs=8969) [place] [id number] POCT-GLUCOSE [id number] 18:58:00 Test Item Value Reference Range Comments POC-GLUCOSE METER (BEAKER) 158 mg/dL 70-110 TESTED AT [address] (test lsja=1749) [place] [id number] VITAMIN B12 AND [id number] 17:12:00 Test Item Value Reference Range Comments VITAMIN B12 (BEAKER) (test ltpf=473) 720 pg/mL 213-816 FOLATE (BEAKER) (test moic=464) 10.3 ng/mL >=7.0 [id number] 14:42:00 Test Item Value Reference Range Comments FERRITIN (BEAKER) (test mehy=953) 265 ng/mL 5-275 IRON, TIBC, % SAT. (WITHOUT FERRITIN)[id number] 14:14:00 Test Item Value Reference Range Comments IRON (BEAKER) (test vhyw=823) 34 ug/dL 40-160 TOTAL IRON BINDING CAPACITY (BEAKER) (test 178 ug/dL 250-450 qaqd=567) IRON % SATURATION (2) (BEAKER) (test mvxs=4374) 19 % 20-55 POCT-GLUCOSE [id number] 12:25:00 Test Item Value Reference Range Comments POC-GLUCOSE METER (BEAKER) 264 mg/dL 70-110 TESTED AT [address] (test dlbz=5963) [place] [id number] POCT-GLUCOSE [id number] 08:00:00 Test Item Value Reference Range Comments POC-GLUCOSE METER (BEAKER) 181 mg/dL 70-110 TESTED AT [address] (test kpzq=8714) [place] [id number] BASIC METABOLIC [id number] 06:49:00 Test Item Value Reference Range Comments SODIUM (BEAKER) (test 137 meq/L 136-145 rtur=897) POTASSIUM (BEAKER) (test 3.6 meq/L 3.5-5.1 dpdl=345) CHLORIDE (BEAKER) (test 100 meq/L 98-107 bgvd=062) CO2 (BEAKER) (test 30 meq/L 22-29 wvgw=101) BLOOD UREA NITROGEN 22 mg/dL 7-21 (BEAKER) (test bbjb=313) CREATININE (BEAKER) (test 2.53 mg/dL 0.57-1.25 khkl=234) GLUCOSE RANDOM (BEAKER) 168 mg/dL 70-105 (test vzls=656) CALCIUM (BEAKER) (test 8.0 mg/dL 8.4-10.2 fghj=556) EGFR (BEAKER) (test 19 mL/min/1.73 sq m ESTIMATED GFR IS NOT cgrg=3426) ACCURATE CREATININE CLEARANCE IN PREDICTING GLOMERULAR FILTRATION RATE. ESTIMATED GFR IS NOT APPLICABLE FOR DIALYSIS PATIENTS. [id number] 06:37:00 Test Item Value Reference Range Comments PHOSPHORUS (BEAKER) (test tcrn=661) 2.9 mg/dL 2.3-4.7 [id number] 06:37:00 Test Item Value Reference Range Comments MAGNESIUM (BEAKER) (test hhdc=343) 1.8 mg/dL 1.6-2.6 CBC W/PLT COUNT & AUTO [id number] 06:19:00 Test Item Value Reference Range Comments WHITE BLOOD CELL COUNT (BEAKER) (test syrx=891) 7.6 K/ L 3.5-10.5 RED BLOOD CELL COUNT (BEAKER) (test zaoa=651) 2.30 M/ L 3.93-5.22 HEMOGLOBIN (BEAKER) (test gupq=793) 7.0 GM/DL 11.2-15.7 HEMATOCRIT (BEAKER) (test kevh=222) 22.3 % 34.1-44.9 MEAN CORPUSCULAR VOLUME (BEAKER) (test pgvu=610) 97.0 fL 79.4-94.8 MEAN CORPUSCULAR HEMOGLOBIN (BEAKER) (test 30.4 pg 25.6-32.2 mvkl=760) MEAN CORPUSCULAR HEMOGLOBIN CONC (BEAKER) (test 31.4 GM/DL 32.2-35.5 cyzc=200) RED CELL DISTRIBUTION WIDTH (BEAKER) (test 13.2 % 11.7-14.4 eumt=586) PLATELET COUNT (BEAKER) (test gwwu=417) 214 K/CU MM 150-450 MEAN PLATELET VOLUME (BEAKER) (test yrgn=205) 12.4 fL 9.4-12.3 NUCLEATED RED BLOOD CELLS (BEAKER) (test 0 /100 WBC 0-0 gwid=450) NEUTROPHILS RELATIVE PERCENT (BEAKER) (test 65 % tomg=532) LYMPHOCYTES RELATIVE PERCENT (BEAKER) (test 20 % tdvz=776) MONOCYTES RELATIVE PERCENT (BEAKER) (test 10 % iaag=484) EOSINOPHILS RELATIVE PERCENT (BEAKER) (test 3 % puyq=532) BASOPHILS RELATIVE PERCENT (BEAKER) (test 0 % ywvh=419) NEUTROPHILS ABSOLUTE COUNT (BEAKER) (test 4.97 K/ L 1.56-6.13 rckm=858) LYMPHOCYTES ABSOLUTE COUNT (BEAKER) (test 1.54 K/ L 1.18-3.74 zpce=936) MONOCYTES ABSOLUTE COUNT (BEAKER) (test 0.79 K/ L 0.24-0.36 otgu=011) EOSINOPHILS ABSOLUTE COUNT (BEAKER) (test 0.26 K/ L 0.04-0.36 wvew=153) BASOPHILS ABSOLUTE COUNT (BEAKER) (test 0.03 K/ L 0.01-0.08 xqzk=003) IMMATURE GRANULOCYTES-RELATIVE PERCENT (BEAKER) 1 % 0-1 (test cuww=2288) POCT-GLUCOSE [id number] 21:09:00 Test Item Value Reference Range Comments POC-GLUCOSE METER (BEAKER) 181 mg/dL 70-110 TESTED AT [address] (test ersf=9661) [place] [id number] POCT-GLUCOSE [id number] 20:36:00 Test Item Value Reference Range Comments POC-GLUCOSE METER (BEAKER) 231 mg/dL 70-110 TESTED AT [address] (test qzvs=0161) [place] [id number] POCT-GLUCOSE [id number] 12:46:00 Test Item Value Reference Range Comments POC-GLUCOSE METER (BEAKER) 180 mg/dL 70-110 TESTED AT [address] (test tarq=6030) [place] [id number] POCT-GLUCOSE [id number] 08:22:00 Test Item Value Reference Range Comments POC-GLUCOSE METER (BEAKER) 157 mg/dL 70-110 TESTED AT [address] (test sbob=5223) [place] [id number] BASIC METABOLIC [id number] 07:18:00 Test Item Value Reference Range Comments SODIUM (BEAKER) (test 136 meq/L 136-145 yppc=954) POTASSIUM (BEAKER) (test 3.5 meq/L 3.5-5.1 igxx=318) CHLORIDE (BEAKER) (test 97 meq/L 98-107 ousy=074) CO2 (BEAKER) (test 26 meq/L 22-29 dpfv=931) BLOOD UREA NITROGEN 46 mg/dL 7-21 (BEAKER) (test uruu=247) CREATININE (BEAKER) (test 3.60 mg/dL 0.57-1.25 lakd=831) GLUCOSE RANDOM (BEAKER) 129 mg/dL 70-105 (test orsz=394) CALCIUM (BEAKER) (test 8.1 mg/dL 8.4-10.2 ijeb=690) EGFR (BEAKER) (test 13 mL/min/1.73 sq m ESTIMATED GFR IS NOT vfhc=9245) ACCURATE CREATININE CLEARANCE IN PREDICTING GLOMERULAR FILTRATION RATE. ESTIMATED GFR IS NOT APPLICABLE FOR DIALYSIS PATIENTS. [id number] 07:11:00 Test Item Value Reference Range Comments PHOSPHORUS (BEAKER) (test dlox=408) 5.1 mg/dL 2.3-4.7 [id number] 07:11:00 Test Item Value Reference Range Comments MAGNESIUM (BEAKER) (test puaj=453) 1.8 mg/dL 1.6-2.6 CALCIUM, [id number] 06:46:00 Test Item Value Reference Range Comments CALCIUM IONIZED (BEAKER) (test qooa=522) 0.99 mmol/L 1.12-1.27 PH, BLOOD (BEAKER) (test szhr=1862) 7.43 CBC W/PLT COUNT & AUTO [id number] 06:43:00 Test Item Value Reference Range Comments WHITE BLOOD CELL COUNT (BEAKER) (test oqsn=130) 7.2 K/ L 3.5-10.5 RED BLOOD CELL COUNT (BEAKER) (test bqie=083) 2.48 M/ L 3.93-5.22 HEMOGLOBIN (BEAKER) (test bitn=705) 7.5 GM/DL 11.2-15.7 HEMATOCRIT (BEAKER) (test wuzx=772) 23.5 % 34.1-44.9 MEAN CORPUSCULAR VOLUME (BEAKER) (test oonz=590) 94.8 fL 79.4-94.8 MEAN CORPUSCULAR HEMOGLOBIN (BEAKER) (test 30.2 pg 25.6-32.2 auza=868) MEAN CORPUSCULAR HEMOGLOBIN CONC (BEAKER) (test 31.9 GM/DL 32.2-35.5 osxt=194) RED CELL DISTRIBUTION WIDTH (BEAKER) (test 13.0 % 11.7-14.4 fdgx=886) PLATELET COUNT (BEAKER) (test wiui=493) 233 K/CU MM 150-450 MEAN PLATELET VOLUME (BEAKER) (test jcaz=749) 12.5 fL 9.4-12.3 NUCLEATED RED BLOOD CELLS (BEAKER) (test 0 /100 WBC 0-0 glpo=555) NEUTROPHILS RELATIVE PERCENT (BEAKER) (test 66 % fnin=505) LYMPHOCYTES RELATIVE PERCENT (BEAKER) (test 18 % gjmm=436) MONOCYTES RELATIVE PERCENT (BEAKER) (test 12 % ldyl=149) EOSINOPHILS RELATIVE PERCENT (BEAKER) (test 3 % qhxd=446) BASOPHILS RELATIVE PERCENT (BEAKER) (test 1 % lgqc=335) NEUTROPHILS ABSOLUTE COUNT (BEAKER) (test 4.73 K/ L 1.56-6.13 fvyw=161) LYMPHOCYTES ABSOLUTE COUNT (BEAKER) (test 1.33 K/ L 1.18-3.74 jywn=181) MONOCYTES ABSOLUTE COUNT (BEAKER) (test 0.89 K/ L 0.24-0.36 mxqs=561) EOSINOPHILS ABSOLUTE COUNT (BEAKER) (test 0.19 K/ L 0.04-0.36 fnmv=789) BASOPHILS ABSOLUTE COUNT (BEAKER) (test 0.05 K/ L 0.01-0.08 qkyp=012) IMMATURE GRANULOCYTES-RELATIVE PERCENT (BEAKER) 0 % 0-1 (test kyul=5372) BLOOD [id number] 00:00:00 Test Item Value Reference Range Comments CULTURE (BEAKER) (test evhz=7872) No growth in 5 days BLOOD [id number] 00:00:00 Test Item Value Reference Range Comments CULTURE (BEAKER) (test bucp=3928) No growth in 5 days HEPATITIS B [id number] 20:32:00 Test Item Value Reference Range Comments HEPATITIS B CORE TOTAL ANTIBODY (BEAKER) (test Nonreactive Nonreactive bjyf=614) HEPATITIS B SURFACE ANTIBODY (BEAKER) (test 20.3 mIU/mL <8.0 pjuw=818) HEPATITIS B SURFACE ANTIGEN (2) (BEAKER) (test Nonreactive Nonreactive oasx=9891) POCT-GLUCOSE [id number] 18:59:00 Test Item Value Reference Range Comments POC-GLUCOSE METER (BEAKER) 146 mg/dL 70-110 TESTED AT [address] (test tokb=8673) [facility] [address] ANG, NON-TUNNELED CATH >7 Y.O. [id number] 16:28:00Reason for exam:-> need hdFINAL REPORT Procedure: [...] of rightinternal jugular Isma catheter. Signed: Carrie Quinteroseport Verified Date/Time: 2017 16:28:37 Reading Location: [place] [address] Angio Body Reading Room EOSINOPHIL SMEAR, [id number] 08:57:00 Test Item Value Reference Range Comments EOSINOPHIL SMEAR, URINE (BEAKER) Rare EOS=less than 5% WBCs No EOS seen (test uncw=7069) seen are EOS POCT-GLUCOSE [id number] 07:29:00 Test Item Value Reference Range Comments POC-GLUCOSE METER (BEAKER) 143 mg/dL 70-[address] [facility] [address] [facility] (test wryv=3004) [facility] [address] PROTHROMBIN [id number] 06:24:00 Test Item Value Reference Range Comments PROTIME (BEAKER) (test ppkp=000) 16.0 seconds 11.7-14.7 INR (BEAKER) (test hqff=511) 1.3 <=5.9 RECOMMENDED COUMADIN/WARFARIN INR THERAPY RANGESSTANDARD DOSE: 2.0 - 3.0 Includes: PROPHYLAXIS forvenous thrombosis, systemic embolization; TREATMENT for venous thrombosis and/or pulmonary embolus.HIGH RISK: Target INR is 2.5-3.5 for patients with mechanical heart valves.[id number] 06:18:00 Test Item Value Reference Range Comments PHOSPHORUS (BEAKER) (test gyqj=706) 9.4 mg/dL 2.3-4.7 [id number] 06:14:00 Test Item Value Reference Range Comments MAGNESIUM (BEAKER) (test szns=023) 2.0 mg/dL 1.6-2.6 CREATINE KINASE (CK)2018-02-06 06:14:00 Test Item Value Reference Range Comments CREATINE KINASE TOTAL (BEAKER) (test xvlc=999) 21 U/L 29-200 COMPREHENSIVE METABOLIC [id number] 06:14:00 Test Item Value Reference Range Comments TOTAL PROTEIN (BEAKER) 6.3 gm/dL 6.0-8.3 (test hfmq=995) ALBUMIN (BEAKER) (test 2.7 g/dL 3.5-5.0 fbmy=7051) ALKALINE PHOSPHATASE 101 U/L 40-150 (BEAKER) (test hhup=481) BILIRUBIN TOTAL (BEAKER) 0.3 mg/dL 0.2-1.2 (test poim=092) SODIUM (BEAKER) (test 135 meq/L 136-145 atuz=180) POTASSIUM (BEAKER) (test 3.8 meq/L 3.5-5.1 buyy=012) CHLORIDE (BEAKER) (test 91 meq/L 98-107 neqw=855) CO2 (BEAKER) (test 28 meq/L 22-29 eyja=132) BLOOD UREA NITROGEN 92 mg/dL 7-21 (BEAKER) (test kxsy=674) CREATININE (BEAKER) (test 5.56 mg/dL 0.57-1.25 rapq=139) GLUCOSE RANDOM (BEAKER) 137 mg/dL 70-105 (test zxpm=568) CALCIUM (BEAKER) (test 8.4 mg/dL 8.4-10.2 aywq=724) AST (SGOT) (BEAKER) (test 11 U/L 5-34 resx=627) ALT (SGPT) (BEAKER) (test 10 U/L 6-55 flmd=751) EGFR (BEAKER) (test 8 mL/min/1.73 sq m ESTIMATED GFR IS NOT jshs=0405) ACCURATE CREATININE CLEARANCE IN PREDICTING GLOMERULAR FILTRATION RATE. ESTIMATED GFR IS NOT APPLICABLE FOR DIALYSIS PATIENTS. B-TYPE NATRIURETIC FACTOR (BNP)2018-02-06 06:13:00 Test Item Value Reference Range Comments B-TYPE NATRIURETIC PEPTIDE (BEAKER) (test 757 pg/mL 0-100 qwka=314) CALCIUM, [id number] 05:59:00 Test Item Value Reference Range Comments CALCIUM IONIZED (BEAKER) (test yume=705) 0.97 mmol/L 1.12-1.27 PH, BLOOD (BEAKER) (test trhj=0908) 7.42 CBC W/PLT COUNT & AUTO [id number] 05:50:00 Test Item Value Reference Range Comments WHITE BLOOD CELL COUNT (BEAKER) (test xmlp=867) 6.5 K/ L 3.5-10.5 RED BLOOD CELL COUNT (BEAKER) (test dcfd=798) 2.54 M/ L 3.93-5.22 HEMOGLOBIN (BEAKER) (test zcmm=980) 7.8 GM/DL 11.2-15.7 HEMATOCRIT (BEAKER) (test nizz=769) 23.4 % 34.1-44.9 MEAN CORPUSCULAR VOLUME (BEAKER) (test hlqc=373) 92.1 fL 79.4-94.8 MEAN CORPUSCULAR HEMOGLOBIN (BEAKER) (test 30.7 pg 25.6-32.2 fkse=663) MEAN CORPUSCULAR HEMOGLOBIN CONC (BEAKER) (test 33.3 GM/DL 32.2-35.5 ladc=593) RED CELL DISTRIBUTION WIDTH (BEAKER) (test 12.8 % 11.7-14.4 yvio=212) PLATELET COUNT (BEAKER) (test fjfc=821) 244 K/CU MM 150-450 MEAN PLATELET VOLUME (BEAKER) (test ohup=240) 12.3 fL 9.4-12.3 NUCLEATED RED BLOOD CELLS (BEAKER) (test 0 /100 WBC 0-0 dosu=423) NEUTROPHILS RELATIVE PERCENT (BEAKER) (test 70 % omvf=524) LYMPHOCYTES RELATIVE PERCENT (BEAKER) (test 17 % imkn=882) MONOCYTES RELATIVE PERCENT (BEAKER) (test 10 % heis=642) EOSINOPHILS RELATIVE PERCENT (BEAKER) (test 3 % jbwt=110) BASOPHILS RELATIVE PERCENT (BEAKER) (test 1 % pyog=266) NEUTROPHILS ABSOLUTE COUNT (BEAKER) (test 4.56 K/ L 1.56-6.13 mncb=523) LYMPHOCYTES ABSOLUTE COUNT (BEAKER) (test 1.08 K/ L 1.18-3.74 lziy=498) MONOCYTES ABSOLUTE COUNT (BEAKER) (test 0.65 K/ L 0.24-0.36 lahl=767) EOSINOPHILS ABSOLUTE COUNT (BEAKER) (test 0.17 K/ L 0.04-0.36 dwfm=973) BASOPHILS ABSOLUTE COUNT (BEAKER) (test 0.05 K/ L 0.01-0.08 kqxx=439) IMMATURE GRANULOCYTES-RELATIVE PERCENT (BEAKER) 1 % 0-1 (test txhu=6540) URINALYSIS W/ [id number] 02:20:00 Test Item Value Reference Range Comments COLOR (BEAKER) (test qfxc=078) Light Yellow CLARITY (BEAKER) (test eoym=964) Clear SPECIFIC GRAVITY UA (BEAKER) (test rhtb=216) 1.008 1.001-1.035 PH UA (BEAKER) (test cwfu=644) 6.5 5.0-8.0 PROTEIN UA (BEAKER) (test ltcc=123) 70 mg/dL Negative GLUCOSE UA (BEAKER) (test rzrj=386) 50 mg/dL Negative KETONES UA (BEAKER) (test wuzd=588) Trace Negative BILIRUBIN UA (BEAKER) (test lsss=723) Negative Negative BLOOD UA (BEAKER) (test jpax=461) Negative Negative NITRITE UA (BEAKER) (test kgru=579) Negative Negative LEUKOCYTE ESTERASE UA (BEAKER) (test ncco=188) Moderate Negative UROBILINOGEN UA (BEAKER) (test ghsa=427) 0.2 mg/dL 0.2-1.0 RBC UA (BEAKER) (test gnfn=579) 2 /HPF WBC UA (BEAKER) (test ensy=922) 21 /HPF BACTERIA (BEAKER) (test elke=834) Occasional MUCUS (BEAKER) (test wunx=4960) Rare SQUAMOUS EPITHELIAL (BEAKER) (test xqet=971) 1 /HPF HYALINE CASTS (BEAKER) (test mzdo=570) 1 /LPF GRANULAR CASTS (BEAKER) (test mnyi=321) 1 /LPF YEAST (BEAKER) (test tfkc=5775) Occasional SOURCE(BEAKER) (test yypc=0851) Urine, Byrd CREATININE, RANDOM [id number] 01:22:00 Test Item Value Reference Range Comments CREATININE URINE (BEAKER) (test oqac=188) 28.2 mg/dL Reference Range: No NormalsPROTEIN, RANDOM [id number] 01:22:00 Test Item Value Reference Range Comments PROTEIN, URINE (BEAKER) (test shom=3171) 80 mg/dL 0-14 SODIUM, RANDOM [id number] 01:22:00 Test Item Value Reference Range Comments SODIUM URINE (BEAKER) (test hrjb=623) 65 meq/L Reference Range: No NormalsPOCT-GLUCOSE [id number] 22:17:00 Test Item Value Reference Range Comments POC-GLUCOSE METER (BEAKER) 162 mg/dL 70-110 TESTED AT [address] (test wglb=2255) [place] [address] RAD, CHEST, 1 VIEW, NON [id number] 20:31:00Reason for exam:->edemaShould this be performed at [...] projecting over the cavoatrial junction/right atrium. Signed: Daniel Elizabeth MDReport Verified Date/ Time: 02/05/2018 20:31:31 Reading Location: [facility] [id number] Consult Reading Room POCT- GLUCOSE [id number] 17:16:00 Test Item Value Reference Range Comments POC-GLUCOSE METER (BEAKER) 204 mg/dL 70-110 TESTED AT [address] (test xqnx=0397) [place] [id number] POCT-GLUCOSE [id number] 12:28:00 Test Item Value Reference Range Comments POC-GLUCOSE METER (BEAKER) 214 mg/dL 70-110 TESTED AT [address] (test vszk=0014) [place] [address] BASIC METABOLIC [id number] 07:47:00 Test Item Value Reference Range Comments SODIUM (BEAKER) (test 133 meq/L 136-145 zloy=904) POTASSIUM (BEAKER) (test 4.3 meq/L 3.5-5.1 vgbp=970) CHLORIDE (BEAKER) (test 93 meq/L 98-107 hkrc=683) CO2 (BEAKER) (test 22 meq/L 22-29 utzf=948) BLOOD UREA NITROGEN 97 mg/dL 7-21 (BEAKER) (test zixe=941) CREATININE (BEAKER) (test 5.21 mg/dL 0.57-1.25 vowm=275) GLUCOSE RANDOM (BEAKER) 152 mg/dL 70-105 (test ejva=792) CALCIUM (BEAKER) (test 8.3 mg/dL 8.4-10.2 ntgg=197) EGFR (BEAKER) (test 8 mL/min/1.73 sq m ESTIMATED GFR IS NOT asso=0066) ACCURATE CREATININE CLEARANCE IN PREDICTING GLOMERULAR FILTRATION RATE. ESTIMATED GFR IS NOT APPLICABLE FOR DIALYSIS PATIENTS. POCT-GLUCOSE [id number] 07:32:00 Test Item Value Reference Range Comments POC-GLUCOSE METER (BEAKER) 172 mg/dL 70-[address] [facility] [address] [place] [address] (test twbk=6889) [place] [id number] 07:24:00 Test Item Value Reference Range Comments MAGNESIUM (BEAKER) (test qlzb=091) 2.0 mg/dL 1.6-2.6 CBC W/PLT COUNT & AUTO [id number] 07:07:00 Test Item Value Reference Range Comments WHITE BLOOD CELL COUNT (BEAKER) (test wrzp=924) 5.9 K/ L 3.5-10.5 RED BLOOD CELL COUNT (BEAKER) (test ovmr=136) 2.49 M/ L 3.93-5.22 HEMOGLOBIN (BEAKER) (test jxfv=131) 7.7 GM/DL 11.2-15.7 HEMATOCRIT (BEAKER) (test dpgr=237) 23.0 % 34.1-44.9 MEAN CORPUSCULAR VOLUME (BEAKER) (test zyjc=610) 92.4 fL 79.4-94.8 MEAN CORPUSCULAR HEMOGLOBIN (BEAKER) (test 30.9 pg 25.6-32.2 puxe=523) MEAN CORPUSCULAR HEMOGLOBIN CONC (BEAKER) (test 33.5 GM/DL 32.2-35.5 rxcd=608) RED CELL DISTRIBUTION WIDTH (BEAKER) (test 12.7 % 11.7-14.4 nsdn=824) PLATELET COUNT (BEAKER) (test qetp=332) 251 K/CU MM 150-450 MEAN PLATELET VOLUME (BEAKER) (test nrcw=560) 12.1 fL 9.4-12.3 NUCLEATED RED BLOOD CELLS (BEAKER) (test 0 /100 WBC 0-0 hcpl=254) NEUTROPHILS RELATIVE PERCENT (BEAKER) (test 66 % swcm=278) LYMPHOCYTES RELATIVE PERCENT (BEAKER) (test 21 % emyx=728) MONOCYTES RELATIVE PERCENT (BEAKER) (test 11 % rcxy=708) EOSINOPHILS RELATIVE PERCENT (BEAKER) (test 2 % vfcp=933) BASOPHILS RELATIVE PERCENT (BEAKER) (test 1 % adcy=631) NEUTROPHILS ABSOLUTE COUNT (BEAKER) (test 3.87 K/ L 1.56-6.13 iyqa=002) LYMPHOCYTES ABSOLUTE COUNT (BEAKER) (test 1.23 K/ L 1.18-3.74 qiam=344) MONOCYTES ABSOLUTE COUNT (BEAKER) (test 0.63 K/ L 0.24-0.36 oiey=807) EOSINOPHILS ABSOLUTE COUNT (BEAKER) (test 0.12 K/ L 0.04-0.36 otxk=895) BASOPHILS ABSOLUTE COUNT (BEAKER) (test 0.05 K/ L 0.01-0.08 zhlh=753) IMMATURE GRANULOCYTES-RELATIVE PERCENT (BEAKER) 0 % 0-1 (test rsal=0882) POCT-GLUCOSE [id number] 20:54:00 Test Item Value Reference Range Comments POC-GLUCOSE METER (BEAKER) 172 mg/dL 70-110 TESTED AT [address] (test cgrr=2136) [facility] [address] POCT-GLUCOSE [id number] 18:59:00 Test Item Value Reference Range Comments POC-GLUCOSE METER (BEAKER) 182 mg/dL 70-110 TESTED AT [address] (test hisk=8965) [facility] [address] POCT-GLUCOSE [id number] 13:26:00 Test Item Value Reference Range Comments POC-GLUCOSE METER (BEAKER) 213 mg/dL 70-[address] [facility] [address] (test larj=1021) [facility] [address] POCT-GLUCOSE [id number] 08:37:00 Test Item Value Reference Range Comments POC-GLUCOSE METER (BEAKER) 192 mg/dL 70-[address] [facility] [address] [facility] (test fepw=5604) [facility] [address] BASIC METABOLIC [id number] 06:57:00 Test Item Value Reference Range Comments SODIUM (BEAKER) (test 130 meq/L 136-145 dfxs=949) POTASSIUM (BEAKER) (test 4.6 meq/L 3.5-5.1 pxeb=776) CHLORIDE (BEAKER) (test 95 meq/L 98-107 fucv=333) CO2 (BEAKER) (test 22 meq/L 22-29 wmpr=336) BLOOD UREA NITROGEN 98 mg/dL 7-21 (BEAKER) (test fozd=334) CREATININE (BEAKER) (test 4.85 mg/dL 0.57-1.25 uqsy=511) GLUCOSE RANDOM (BEAKER) 172 mg/dL 70-105 (test krgm=882) CALCIUM (BEAKER) (test 8.1 mg/dL 8.4-10.2 rcfa=448) EGFR (BEAKER) (test 9 mL/min/1.73 sq m ESTIMATED GFR IS NOT mojj=2223) ACCURATE CREATININE CLEARANCE IN PREDICTING GLOMERULAR FILTRATION RATE. ESTIMATED GFR IS NOT APPLICABLE FOR DIALYSIS PATIENTS. [id number] 06:52:00 Test Item Value Reference Range Comments MAGNESIUM (BEAKER) (test yknt=190) 2.0 mg/dL 1.6-2.6 CBC W/PLT COUNT & AUTO [id number] 06:52:00 Test Item Value Reference Range Comments WHITE BLOOD CELL COUNT (BEAKER) (test zuau=698) 5.5 K/ L 3.5-10.5 RED BLOOD CELL COUNT (BEAKER) (test plxi=276) 2.36 M/ L 3.93-5.22 HEMOGLOBIN (BEAKER) (test qgxs=728) 7.2 GM/DL 11.2-15.7 HEMATOCRIT (BEAKER) (test hmpl=499) 21.9 % 34.1-44.9 MEAN CORPUSCULAR VOLUME (BEAKER) (test beqi=282) 92.8 fL 79.4-94.8 MEAN CORPUSCULAR HEMOGLOBIN (BEAKER) (test 30.5 pg 25.6-32.2 ksaq=085) MEAN CORPUSCULAR HEMOGLOBIN CONC (BEAKER) (test 32.9 GM/DL 32.2-35.5 oofv=655) RED CELL DISTRIBUTION WIDTH (BEAKER) (test 13.0 % 11.7-14.4 wjqs=964) PLATELET COUNT (BEAKER) (test jbvr=876) 242 K/CU MM 150-450 MEAN PLATELET VOLUME (BEAKER) (test mhcf=376) 11.8 fL 9.4-12.3 NUCLEATED RED BLOOD CELLS (BEAKER) (test 0 /100 WBC 0-0 stew=286) NEUTROPHILS RELATIVE PERCENT (BEAKER) (test 56 % xrgu=653) LYMPHOCYTES RELATIVE PERCENT (BEAKER) (test 26 % mzfi=211) MONOCYTES RELATIVE PERCENT (BEAKER) (test 12 % wuha=221) EOSINOPHILS RELATIVE PERCENT (BEAKER) (test 6 % kzvi=153) BASOPHILS RELATIVE PERCENT (BEAKER) (test 1 % tdeo=914) NEUTROPHILS ABSOLUTE COUNT (BEAKER) (test 3.07 K/ L 1.56-6.13 bqgl=546) LYMPHOCYTES ABSOLUTE COUNT (BEAKER) (test 1.45 K/ L 1.18-3.74 qhld=238) MONOCYTES ABSOLUTE COUNT (BEAKER) (test 0.64 K/ L 0.24-0.36 kdso=157) EOSINOPHILS ABSOLUTE COUNT (BEAKER) (test 0.31 K/ L 0.04-0.36 tszz=224) BASOPHILS ABSOLUTE COUNT (BEAKER) (test 0.04 K/ L 0.01-0.08 fohe=604) IMMATURE GRANULOCYTES-RELATIVE PERCENT (BEAKER) 0 % 0-1 (test ftrf=8600) POCT-GLUCOSE [id number] 21:09:00 Test Item Value Reference Range Comments POC-GLUCOSE METER (BEAKER) 217 mg/dL 70-[address] [facility] [address] (test uusm=9265) [facility] [address] POCT-GLUCOSE [id number] 17:47:00 Test Item Value Reference Range Comments POC-GLUCOSE METER (BEAKER) 172 mg/dL 70-[address] [facility] [address] [facility] (test fmgd=1572) [facility] [address] POCT-GLUCOSE [id number] 12:22:00 Test Item Value Reference Range Comments POC-GLUCOSE METER (BEAKER) 228 mg/dL 70-[address] [facility] [address] [facility] (test mzuh=8618) [facility] [address] VANCOMYCIN LEVEL, [id number] 12:13:00 Test Item Value Reference Range Comments VANCOMYCIN RANDOM (BEAKER) (test wcnv=112) 20.7 ug/mL Reference Range: No NormalsB-TYPE NATRIURETIC FACTOR (BNP)2018-02-03 12:11:00 Test Item Value Reference Range Comments B-TYPE NATRIURETIC PEPTIDE (BEAKER) (test 434 pg/mL 0-100 eohi=795) U/S, RENAL WITH [id number] 11:13:00Reason for exam:->renal failureFINAL REPORT Renal ultrasound [...] kidneys with elevated resistive indicis. Signed: Clovis Fischereport Verified Date/Time: 02/03/2018 11:13:52 Reading Location: [facility] B1 C013Y CT Body Reading Room POCT-GLUCOSE [id number] 09:01:00 Test Item Value Reference Range Comments POC-GLUCOSE METER (BEAKER) 168 mg/dL 70-[address] [facility] [address] [facility] (test dzft=4588) [facility] [address] BASIC METABOLIC [id number] 07:10:00 Test Item Value Reference Range Comments SODIUM (BEAKER) (test 128 meq/L 136-145 ubpf=966) POTASSIUM (BEAKER) (test 5.0 meq/L 3.5-5.1 kjni=872) CHLORIDE (BEAKER) (test 100 meq/L 98-107 sbbv=825) CO2 (BEAKER) (test 15 meq/L 22-29 bugm=411) BLOOD UREA NITROGEN 98 mg/dL 7-21 (BEAKER) (test lfyy=110) CREATININE (BEAKER) (test 4.23 mg/dL 0.57-1.25 msuc=875) GLUCOSE RANDOM (BEAKER) 163 mg/dL 70-105 (test fspw=668) CALCIUM (BEAKER) (test 8.1 mg/dL 8.4-10.2 rpav=460) EGFR (BEAKER) (test 11 mL/min/1.73 sq m ESTIMATED GFR IS NOT plrd=2972) ACCURATE CREATININE CLEARANCE IN PREDICTING GLOMERULAR FILTRATION RATE. ESTIMATED GFR IS NOT APPLICABLE FOR DIALYSIS PATIENTS. [id number] 07:08:00 Test Item Value Reference Range Comments MAGNESIUM (BEAKER) (test txlu=632) 2.1 mg/dL 1.6-2.6 CBC W/PLT COUNT & AUTO [id number] 05:55:00 Test Item Value Reference Range Comments WHITE BLOOD CELL COUNT (BEAKER) (test itwm=343) 6.6 K/ L 3.5-10.5 RED BLOOD CELL COUNT (BEAKER) (test aera=466) 2.58 M/ L 3.93-5.22 HEMOGLOBIN (BEAKER) (test hccm=258) 8.0 GM/DL 11.2-15.7 HEMATOCRIT (BEAKER) (test ytdt=304) 24.6 % 34.1-44.9 MEAN CORPUSCULAR VOLUME (BEAKER) (test xmfj=596) 95.3 fL 79.4-94.8 MEAN CORPUSCULAR HEMOGLOBIN (BEAKER) (test 31.0 pg 25.6-32.2 llwo=627) MEAN CORPUSCULAR HEMOGLOBIN CONC (BEAKER) (test 32.5 GM/DL 32.2-35.5 ksaa=947) RED CELL DISTRIBUTION WIDTH (BEAKER) (test 13.0 % 11.7-14.4 xhra=385) PLATELET COUNT (BEAKER) (test xvcj=680) 293 K/CU MM 150-450 MEAN PLATELET VOLUME (BEAKER) (test oifr=626) 11.4 fL 9.4-12.3 NUCLEATED RED BLOOD CELLS (BEAKER) (test 0 /100 WBC 0-0 zlou=075) NEUTROPHILS RELATIVE PERCENT (BEAKER) (test 60 % jxkh=670) LYMPHOCYTES RELATIVE PERCENT (BEAKER) (test 24 % ktre=441) MONOCYTES RELATIVE PERCENT (BEAKER) (test 10 % cnwn=170) EOSINOPHILS RELATIVE PERCENT (BEAKER) (test 5 % xgkr=844) BASOPHILS RELATIVE PERCENT (BEAKER) (test 1 % ccmg=353) NEUTROPHILS ABSOLUTE COUNT (BEAKER) (test 3.96 K/ L 1.56-6.13 bffn=267) LYMPHOCYTES ABSOLUTE COUNT (BEAKER) (test 1.58 K/ L 1.18-3.74 bhtx=509) MONOCYTES ABSOLUTE COUNT (BEAKER) (test 0.68 K/ L 0.24-0.36 ejaa=870) EOSINOPHILS ABSOLUTE COUNT (BEAKER) (test 0.30 K/ L 0.04-0.36 oodo=333) BASOPHILS ABSOLUTE COUNT (BEAKER) (test 0.04 K/ L 0.01-0.08 vsor=229) IMMATURE GRANULOCYTES-RELATIVE PERCENT (BEAKER) 1 % 0-1 (test dodq=9072) POCT-GLUCOSE [id number] 21:31:00 Test Item Value Reference Range Comments POC-GLUCOSE METER (BEAKER) 230 mg/dL 70-110 TESTED AT [address] (test dpwc=6716) [facility] [address] POCT-GLUCOSE [id number] 17:21:00 Test Item Value Reference Range Comments POC-GLUCOSE METER (BEAKER) 178 mg/dL 70-110 TESTED AT [address] (test diwu=6473) [facility] [address] SODIUM, RANDOM [id number] 16:59:00 Test Item Value Reference Range Comments SODIUM URINE (BEAKER) (test bjzp=003) 41 meq/L Reference Range: No NormalsCREATININE, RANDOM [id number] 16:58:00 Test Item Value Reference Range Comments CREATININE URINE (BEAKER) (test kmmi=124) 36.7 mg/dL Reference Range: No NormalsURINALYSIS W/ [id number] 15:32:00 Test Item Value Reference Range Comments COLOR (BEAKER) (test mkyq=185) Light Yellow CLARITY (BEAKER) (test vveg=762) Hazy SPECIFIC GRAVITY UA (BEAKER) (test cvmv=787) 1.010 1.001-1.035 PH UA (BEAKER) (test cckm=519) 5.5 5.0-8.0 PROTEIN UA (BEAKER) (test fijq=473) 100 mg/dL Negative GLUCOSE UA (BEAKER) (test jvuv=510) 70 mg/dL Negative KETONES UA (BEAKER) (test hzpq=586) Negative Negative BILIRUBIN UA (BEAKER) (test zppi=976) Negative Negative BLOOD UA (BEAKER) (test jcxv=221) Small Negative NITRITE UA (BEAKER) (test zaif=483) Negative Negative LEUKOCYTE ESTERASE UA (BEAKER) (test iply=498) Large Negative UROBILINOGEN UA (BEAKER) (test vuop=485) 0.2 mg/dL 0.2-1.0 RBC UA (BEAKER) (test yalm=499) 1 /HPF WBC UA (BEAKER) (test scxq=279) 54 /HPF SQUAMOUS EPITHELIAL (BEAKER) (test sjfa=023) < /HPF SOURCE(BEAKER) (test mgrg=2339) Urine, Byrd POCT-GLUCOSE [id number] 11:31:00 Test Item Value Reference Range Comments POC-GLUCOSE METER (BEAKER) 249 mg/dL 70-110 TESTED AT [address] (test zewo=4895) [facility] [address] POCT-GLUCOSE [id number] 08:34:00 Test Item Value Reference Range Comments POC-GLUCOSE METER (BEAKER) 238 mg/dL 70-110 TESTED AT [address] (test laqf=7293) [facility] [id number] BASIC METABOLIC [id number] 07:07:00 Test Item Value Reference Range Comments SODIUM (BEAKER) (test 128 meq/L 136-145 wiyw=860) POTASSIUM (BEAKER) (test 5.3 meq/L 3.5-5.1 tlmr=256) CHLORIDE (BEAKER) (test 97 meq/L 98-107 zvwe=072) CO2 (BEAKER) (test 17 meq/L 22-29 syyi=735) BLOOD UREA NITROGEN 93 mg/dL 7-21 (BEAKER) (test yzzb=453) CREATININE (BEAKER) (test 3.43 mg/dL 0.57-1.25 lzhz=206) GLUCOSE RANDOM (BEAKER) 250 mg/dL 70-105 (test srzb=014) CALCIUM (BEAKER) (test 8.4 mg/dL 8.4-10.2 mvox=892) EGFR (BEAKER) (test 13 mL/min/1.73 sq m ESTIMATED GFR IS NOT spsa=2404) ACCURATE CREATININE CLEARANCE IN PREDICTING GLOMERULAR FILTRATION RATE. ESTIMATED GFR IS NOT APPLICABLE FOR DIALYSIS PATIENTS. [id number] 07:02:00 Test Item Value Reference Range Comments MAGNESIUM (BEAKER) (test lhmq=583) 2.2 mg/dL 1.6-2.6 CBC W/PLT COUNT & AUTO [id number] 06:17:00 Test Item Value Reference Range Comments WHITE BLOOD CELL COUNT (BEAKER) (test vpzn=745) 9.4 K/ L 3.5-10.5 RED BLOOD CELL COUNT (BEAKER) (test mfcq=598) 2.72 M/ L 3.93-5.22 HEMOGLOBIN (BEAKER) (test ploo=938) 8.2 GM/DL 11.2-15.7 HEMATOCRIT (BEAKER) (test datg=482) 26.0 % 34.1-44.9 MEAN CORPUSCULAR VOLUME (BEAKER) (test qcpo=883) 95.6 fL 79.4-94.8 MEAN CORPUSCULAR HEMOGLOBIN (BEAKER) (test 30.1 pg 25.6-32.2 xvek=613) MEAN CORPUSCULAR HEMOGLOBIN CONC (BEAKER) (test 31.5 GM/DL 32.2-35.5 rkve=958) RED CELL DISTRIBUTION WIDTH (BEAKER) (test 13.0 % 11.7-14.4 zcbb=279) PLATELET COUNT (BEAKER) (test kcvx=585) 315 K/CU MM 150-450 MEAN PLATELET VOLUME (BEAKER) (test ozxb=450) 11.3 fL 9.4-12.3 NUCLEATED RED BLOOD CELLS (BEAKER) (test 0 /100 WBC 0-0 bqbt=713) NEUTROPHILS RELATIVE PERCENT (BEAKER) (test 68 % tetd=190) LYMPHOCYTES RELATIVE PERCENT (BEAKER) (test 21 % skjx=946) MONOCYTES RELATIVE PERCENT (BEAKER) (test 9 % kilf=371) EOSINOPHILS RELATIVE PERCENT (BEAKER) (test 1 % iyau=345) BASOPHILS RELATIVE PERCENT (BEAKER) (test 0 % vshn=962) NEUTROPHILS ABSOLUTE COUNT (BEAKER) (test 6.45 K/ L 1.56-6.13 mhwv=402) LYMPHOCYTES ABSOLUTE COUNT (BEAKER) (test 1.98 K/ L 1.18-3.74 hdur=767) MONOCYTES ABSOLUTE COUNT (BEAKER) (test 0.82 K/ L 0.24-0.36 agfr=309) EOSINOPHILS ABSOLUTE COUNT (BEAKER) (test 0.11 K/ L 0.04-0.36 herz=122) BASOPHILS ABSOLUTE COUNT (BEAKER) (test 0.04 K/ L 0.01-0.08 ykzu=841) IMMATURE GRANULOCYTES-RELATIVE PERCENT (BEAKER) 0 % 0-1 (test yxft=2710) POCT-GLUCOSE [id number] 22:07:00 Test Item Value Reference Range Comments POC-GLUCOSE METER (BEAKER) 109 mg/dL 70-110 TESTED AT [address] (test iluj=0930) [place] [id number] POCT-GLUCOSE [id number] 21:48:00 Test Item Value Reference Range Comments POC-GLUCOSE METER (BEAKER) 41 mg/dL 70-110 Notified SAMAN HERNANDEZ/TESTED AT [facility] (test szvf=3120) [address] [place], [place] [id number] POCT-GLUCOSE [id number] 21:34:00 Test Item Value Reference Range Comments POC-GLUCOSE METER (BEAKER) 31 mg/dL 70-110 TESTED AT [address] (test tahd=6102) [place] [id number] POCT-GLUCOSE [id number] 21:09:00 Test Item Value Reference Range Comments POC-GLUCOSE METER (BEAKER) 227 mg/dL 70-110 TESTED AT [address] (test ewky=6148) [place] [address] RAD, CHEST, 1 VIEW, NON [id number] 19:03:00Reason for exam:->PICC LINE TIP VERIFICATIONShould this [...] MDReport Verified Date/Time: 02/01/2018 19:03:06 Reading Location: [facility] C013 Consult Reading Room BASIC METABOLIC [id number] 18:09:00 Test Item Value Reference Range Comments SODIUM (BEAKER) (test 132 meq/L 136-145 xovg=026) POTASSIUM (BEAKER) (test 4.8 meq/L 3.5-5.1 gzbj=436) CHLORIDE (BEAKER) (test 99 meq/L 98-107 uxxt=421) CO2 (BEAKER) (test 18 meq/L 22-29 ikpc=862) BLOOD UREA NITROGEN 83 mg/dL 7-21 (BEAKER) (test inoo=456) CREATININE (BEAKER) (test 3.12 mg/dL 0.57-1.25 ezxo=246) GLUCOSE RANDOM (BEAKER) 233 mg/dL 70-105 (test jdvn=207) CALCIUM (BEAKER) (test 8.8 mg/dL 8.4-10.2 dnlq=333) EGFR (BEAKER) (test 15 mL/min/1.73 sq m ESTIMATED GFR IS NOT fydo=4272) ACCURATE CREATININE CLEARANCE IN PREDICTING GLOMERULAR FILTRATION RATE. ESTIMATED GFR IS NOT APPLICABLE FOR DIALYSIS PATIENTS. [id number] 17:51:00 Test Item Value Reference Range Comments PROTIME (BEAKER) (test zdcr=312) 14.5 seconds 11.7-14.7 INR (BEAKER) (test gpkl=920) 1.1 <=5.9 PARTIAL THROMBOPLASTIN TIME (BEAKER) (test 30.0 seconds 22.5-36.0 wkbw=176) RECOMMENDED COUMADIN/WARFARIN INR THERAPY RANGESSTANDARD DOSE: 2.0 - 3.0 Includes: PROPHYLAXIS forvenous thrombosis, systemic embolization; TREATMENT for venous thrombosis and/or pulmonary embolus.HIGH RISK: Target INR is 2.5-3.5 for patients with mechanical heart valves.CBC W/PLT COUNT & AUTO [id number] 17:41:00 Test Item Value Reference Range Comments WHITE BLOOD CELL COUNT (BEAKER) (test vqiw=360) 9.5 K/ L 3.5-10.5 RED BLOOD CELL COUNT (BEAKER) (test dnmc=545) 2.80 M/ L 3.93-5.22 HEMOGLOBIN (BEAKER) (test fyoo=051) 8.6 GM/DL 11.2-15.7 HEMATOCRIT (BEAKER) (test biou=094) 28.3 % 34.1-44.9 MEAN CORPUSCULAR VOLUME (BEAKER) (test sxsg=653) 101.1 fL 79.4-94.8 MEAN CORPUSCULAR HEMOGLOBIN (BEAKER) (test 30.7 pg 25.6-32.2 digv=544) MEAN CORPUSCULAR HEMOGLOBIN CONC (BEAKER) (test 30.4 GM/DL 32.2-35.5 oken=710) RED CELL DISTRIBUTION WIDTH (BEAKER) (test 13.0 % 11.7-14.4 szwr=579) PLATELET COUNT (BEAKER) (test qbdj=829) 330 K/CU MM 150-450 MEAN PLATELET VOLUME (BEAKER) (test tjzm=031) 11.1 fL 9.4-12.3 NUCLEATED RED BLOOD CELLS (BEAKER) (test 0 /100 WBC 0-0 nzka=660) NEUTROPHILS RELATIVE PERCENT (BEAKER) (test 67 % fgep=582) LYMPHOCYTES RELATIVE PERCENT (BEAKER) (test 23 % gmsg=140) MONOCYTES RELATIVE PERCENT (BEAKER) (test 9 % muot=696) EOSINOPHILS RELATIVE PERCENT (BEAKER) (test 1 % rdui=245) BASOPHILS RELATIVE PERCENT (BEAKER) (test 0 % dsem=485) NEUTROPHILS ABSOLUTE COUNT (BEAKER) (test 6.30 K/ L 1.56-6.13 cmgl=848) LYMPHOCYTES ABSOLUTE COUNT (BEAKER) (test 2.13 K/ L 1.18-3.74 hbdv=363) MONOCYTES ABSOLUTE COUNT (BEAKER) (test 0.82 K/ L 0.24-0.36 mwem=647) EOSINOPHILS ABSOLUTE COUNT (BEAKER) (test 0.13 K/ L 0.04-0.36 eizp=507) BASOPHILS ABSOLUTE COUNT (BEAKER) (test 0.03 K/ L 0.01-0.08 scug=275) IMMATURE GRANULOCYTES-RELATIVE PERCENT (BEAKER) 1 % 0-1 (test aeuk=8066) RAD, ANKLE, MIN 3 VIEWS, [id number] 15:39:00Reason for exam:->ankle fractureFINAL REPORT Left ankle. Clinical history: Ankle fracture. COMPARISON STUDY: January 05, 2018. Findings his: Three views of the left ankle demonstrate a lateral plate and screwsfixating a distal fibular fracture. There are two cannulated leg screws in the medial malleolus. Thealignment is near-anatomic in nature. Degenerative changes are seen. Soft tissue swelling is noted. Signed: Karen Morales MDReport Verified Date/Time: 02/01/2018 15:39:13 Reading Location: [facility] Diagnostic Imaging Reading Room - [place] [address] POCT-GLUCOSE [id number] 17:18:00 Test Item Value Reference Range Comments POC-GLUCOSE METER (BEAKER) 100 mg/dL 70-110 TESTED AT [address] (test tofk=3274) [facility] [address] POCT-GLUCOSE [id number] 17:18:00 Test Item Value Reference Range Comments POC-GLUCOSE METER (BEAKER) 68 mg/dL 70-110 Notified SAMAN HERNANDEZ/TESTED AT [facility] (test erlg=4546) [address] [place] [address] POCT-GLUCOSE [id number] 11:52:00 Test Item Value Reference Range Comments POC-GLUCOSE METER (BEAKER) 138 mg/dL 70-110 TESTED AT [address] (test hixq=0646) [facility] [address] POCT-GLUCOSE [id number] 08:26:00 Test Item Value Reference Range Comments POC-GLUCOSE METER (BEAKER) 251 mg/dL 70-[address] [facility] [address] [facility] (test fojb=6734) [facility] [address] CBC W/PLT COUNT & AUTO [id number] 06:24:00 Test Item Value Reference Range Comments WHITE BLOOD CELL COUNT (BEAKER) (test bdac=677) 8.3 K/ L 3.5-10.5 RED BLOOD CELL COUNT (BEAKER) (test nsvt=433) 2.94 M/ L 3.93-5.22 HEMOGLOBIN (BEAKER) (test cmsd=106) 9.2 GM/DL 11.2-15.7 HEMATOCRIT (BEAKER) (test ekkz=032) 29.1 % 34.1-44.9 MEAN CORPUSCULAR VOLUME (BEAKER) (test pswk=040) 99.0 fL 79.4-94.8 MEAN CORPUSCULAR HEMOGLOBIN (BEAKER) (test 31.3 pg 25.6-32.2 iqbq=019) MEAN CORPUSCULAR HEMOGLOBIN CONC (BEAKER) (test 31.6 GM/DL 32.2-35.5 wbsk=718) RED CELL DISTRIBUTION WIDTH (BEAKER) (test 11.9 % 11.7-14.4 cweo=164) PLATELET COUNT (BEAKER) (test hkwm=531) 293 K/CU MM 150-450 MEAN PLATELET VOLUME (BEAKER) (test uhqj=724) 12.7 fL 9.4-12.3 NUCLEATED RED BLOOD CELLS (BEAKER) (test 0 /100 WBC 0-0 qzmo=902) NEUTROPHILS RELATIVE PERCENT (BEAKER) (test 63 % bfrc=508) LYMPHOCYTES RELATIVE PERCENT (BEAKER) (test 20 % tgax=425) MONOCYTES RELATIVE PERCENT (BEAKER) (test 10 % swvl=777) EOSINOPHILS RELATIVE PERCENT (BEAKER) (test 6 % valm=360) BASOPHILS RELATIVE PERCENT (BEAKER) (test 1 % obvh=739) NEUTROPHILS ABSOLUTE COUNT (BEAKER) (test 5.21 K/ L 1.56-6.13 jwun=988) LYMPHOCYTES ABSOLUTE COUNT (BEAKER) (test 1.67 K/ L 1.18-3.74 tljn=020) MONOCYTES ABSOLUTE COUNT (BEAKER) (test 0.86 K/ L 0.24-0.36 iuiw=063) EOSINOPHILS ABSOLUTE COUNT (BEAKER) (test 0.47 K/ L 0.04-0.36 ylxh=559) BASOPHILS ABSOLUTE COUNT (BEAKER) (test 0.05 K/ L 0.01-0.08 vbzl=420) IMMATURE GRANULOCYTES-RELATIVE PERCENT (BEAKER) 1 % 0-1 (test hyej=1501) POCT-GLUCOSE [id number] 21:03:00 Test Item Value Reference Range Comments POC-GLUCOSE METER (BEAKER) 354 mg/dL 70-110 TESTED AT [address] (test slib=7497) [facility] [address] POCT-GLUCOSE [id number] 18:07:00 Test Item Value Reference Range Comments POC-GLUCOSE METER (BEAKER) 309 mg/dL 70-110 TESTED AT [address] (test gtyo=3969) [facility] [address] POCT-GLUCOSE [id number] 12:25:00 Test Item Value Reference Range Comments POC-GLUCOSE METER (BEAKER) 253 mg/dL 70-110 TESTED AT [address] (test xill=6149) [facility] [address] POCT-GLUCOSE [id number] 08:01:00 Test Item Value Reference Range Comments POC-GLUCOSE METER (BEAKER) 305 mg/dL 70-110 Notified SAMAN HERNANDEZ/TESTED AT [facility] (test jzyz=5464) [address] [place] [address] [id number] 06:41:00 Test Item Value Reference Range Comments MAGNESIUM (BEAKER) (test uylt=693) 1.9 mg/dL 1.6-2.6 BASIC METABOLIC [id number] 06:41:00 Test Item Value Reference Range Comments SODIUM (BEAKER) (test 130 meq/L 136-145 jimj=127) POTASSIUM (BEAKER) (test 4.7 meq/L 3.5-5.1 ifzz=678) CHLORIDE (BEAKER) (test 97 meq/L 98-107 ilwp=601) CO2 (BEAKER) (test 25 meq/L 22-29 rred=485) BLOOD UREA NITROGEN 25 mg/dL 7-21 (BEAKER) (test tyqz=453) CREATININE (BEAKER) (test 0.91 mg/dL 0.57-1.25 mnbk=463) GLUCOSE RANDOM (BEAKER) 260 mg/dL 70-105 (test plor=279) CALCIUM (BEAKER) (test 8.7 mg/dL 8.4-10.2 scfw=964) EGFR (BEAKER) (test 62 mL/min/1.73 sq m ESTIMATED GFR IS NOT yast=9606) ACCURATE CREATININE CLEARANCE IN PREDICTING GLOMERULAR FILTRATION RATE. ESTIMATED GFR IS NOT APPLICABLE FOR DIALYSIS PATIENTS. CBC W/PLT COUNT & AUTO [id number] 06:10:00 Test Item Value Reference Range Comments WHITE BLOOD CELL COUNT (BEAKER) (test ramp=558) 9.7 K/ L 3.5-10.5 RED BLOOD CELL COUNT (BEAKER) (test zpyj=134) 2.92 M/ L 3.93-5.22 HEMOGLOBIN (BEAKER) (test pwgc=910) 9.2 GM/DL 11.2-15.7 HEMATOCRIT (BEAKER) (test pwjj=517) 28.8 % 34.1-44.9 MEAN CORPUSCULAR VOLUME (BEAKER) (test wgej=222) 98.6 fL 79.4-94.8 MEAN CORPUSCULAR HEMOGLOBIN (BEAKER) (test 31.5 pg 25.6-32.2 nbcu=700) MEAN CORPUSCULAR HEMOGLOBIN CONC (BEAKER) (test 31.9 GM/DL 32.2-35.5 smfz=058) RED CELL DISTRIBUTION WIDTH (BEAKER) (test 12.1 % 11.7-14.4 bpat=815) PLATELET COUNT (BEAKER) (test kbfo=928) 269 K/CU MM 150-450 MEAN PLATELET VOLUME (BEAKER) (test epvm=199) 13.2 fL 9.4-12.3 NUCLEATED RED BLOOD CELLS (BEAKER) (test 0 /100 WBC 0-0 rkdw=448) NEUTROPHILS RELATIVE PERCENT (BEAKER) (test 66 % fhty=982) LYMPHOCYTES RELATIVE PERCENT (BEAKER) (test 19 % rjkf=875) MONOCYTES RELATIVE PERCENT (BEAKER) (test 10 % zvpj=484) EOSINOPHILS RELATIVE PERCENT (BEAKER) (test 4 % pcia=919) BASOPHILS RELATIVE PERCENT (BEAKER) (test 0 % twlt=648) NEUTROPHILS ABSOLUTE COUNT (BEAKER) (test 6.35 K/ L 1.56-6.13 rklu=558) LYMPHOCYTES ABSOLUTE COUNT (BEAKER) (test 1.87 K/ L 1.18-3.74 kpca=028) MONOCYTES ABSOLUTE COUNT (BEAKER) (test 0.93 K/ L 0.24-0.36 uijl=464) EOSINOPHILS ABSOLUTE COUNT (BEAKER) (test 0.43 K/ L 0.04-0.36 bdit=591) BASOPHILS ABSOLUTE COUNT (BEAKER) (test 0.04 K/ L 0.01-0.08 qphx=021) IMMATURE GRANULOCYTES-RELATIVE PERCENT (BEAKER) 1 % 0-1 (test krnd=5760) POCT-GLUCOSE [id number] 21:07:00 Test Item Value Reference Range Comments POC-GLUCOSE METER (BEAKER) 162 mg/dL 70-110 TESTED AT [address] (test bayz=5581) [place] [id number] POCT-GLUCOSE [id number] 17:50:00 Test Item Value Reference Range Comments POC-GLUCOSE METER (BEAKER) 286 mg/dL 70-110 TESTED AT [address] (test qyla=0147) [place] [address] POCT-GLUCOSE [id number] 13:33:00 Test Item Value Reference Range Comments POC-GLUCOSE METER (BEAKER) 123 mg/dL 70-110 TESTED AT [address] (test tvnk=6469) [place] [address] POCT-GLUCOSE [id number] 09:09:00 Test Item Value Reference Range Comments POC-GLUCOSE METER (BEAKER) 209 mg/dL 70-110 TESTED AT [address] (test idgk=4368) [place] [address] [id number] 05:50:00 Test Item Value Reference Range Comments MAGNESIUM (BEAKER) (test voau=959) 2.0 mg/dL 1.6-2.6 BASIC METABOLIC [id number] 05:50:00 Test Item Value Reference Range Comments SODIUM (BEAKER) (test 131 meq/L 136-145 mwrl=644) POTASSIUM (BEAKER) (test 4.9 meq/L 3.5-5.1 mdoh=354) CHLORIDE (BEAKER) (test 101 meq/L 98-107 yzjy=042) CO2 (BEAKER) (test 23 meq/L 22-29 dpyp=401) BLOOD UREA NITROGEN 23 mg/dL 7-21 (BEAKER) (test evok=612) CREATININE (BEAKER) (test 0.99 mg/dL 0.57-1.25 banv=109) GLUCOSE RANDOM (BEAKER) 173 mg/dL 70-105 (test kkzj=997) CALCIUM (BEAKER) (test 9.0 mg/dL 8.4-10.2 vqsu=021) EGFR (BEAKER) (test 56 mL/min/1.73 sq m ESTIMATED GFR IS NOT iudl=0822) ACCURATE CREATININE CLEARANCE IN PREDICTING GLOMERULAR FILTRATION RATE. ESTIMATED GFR IS NOT APPLICABLE FOR DIALYSIS PATIENTS. CBC W/PLT COUNT & AUTO [id number] 05:24:00 Test Item Value Reference Range Comments WHITE BLOOD CELL COUNT (BEAKER) (test wbqy=889) 8.8 K/ L 3.5-10.5 RED BLOOD CELL COUNT (BEAKER) (test xpli=578) 3.00 M/ L 3.93-5.22 HEMOGLOBIN (BEAKER) (test zfti=285) 9.6 GM/DL 11.2-15.7 HEMATOCRIT (BEAKER) (test apbz=772) 29.9 % 34.1-44.9 MEAN CORPUSCULAR VOLUME (BEAKER) (test mnik=393) 99.7 fL 79.4-94.8 MEAN CORPUSCULAR HEMOGLOBIN (BEAKER) (test 32.0 pg 25.6-32.2 plmh=878) MEAN CORPUSCULAR HEMOGLOBIN CONC (BEAKER) (test 32.1 GM/DL 32.2-35.5 aqru=014) RED CELL DISTRIBUTION WIDTH (BEAKER) (test 12.4 % 11.7-14.4 ikcd=981) PLATELET COUNT (BEAKER) (test rekq=245) 245 K/CU MM 150-450 MEAN PLATELET VOLUME (BEAKER) (test kqye=870) 13.2 fL 9.4-12.3 NUCLEATED RED BLOOD CELLS (BEAKER) (test 0 /100 WBC 0-0 zczt=299) NEUTROPHILS RELATIVE PERCENT (BEAKER) (test 70 % rymg=449) LYMPHOCYTES RELATIVE PERCENT (BEAKER) (test 16 % ymhk=258) MONOCYTES RELATIVE PERCENT (BEAKER) (test 9 % lwdu=646) EOSINOPHILS RELATIVE PERCENT (BEAKER) (test 4 % fykt=873) BASOPHILS RELATIVE PERCENT (BEAKER) (test 1 % ixlo=237) NEUTROPHILS ABSOLUTE COUNT (BEAKER) (test 6.15 K/ L 1.56-6.13 juqs=199) LYMPHOCYTES ABSOLUTE COUNT (BEAKER) (test 1.36 K/ L 1.18-3.74 rkhl=931) MONOCYTES ABSOLUTE COUNT (BEAKER) (test 0.83 K/ L 0.24-0.36 towc=906) EOSINOPHILS ABSOLUTE COUNT (BEAKER) (test 0.36 K/ L 0.04-0.36 wuvj=905) BASOPHILS ABSOLUTE COUNT (BEAKER) (test 0.04 K/ L 0.01-0.08 ynqg=929) IMMATURE GRANULOCYTES-RELATIVE PERCENT (BEAKER) 1 % 0-1 (test avwp=6953) CT, CTA AAA, W/ VAN.EXT.[id number] 02:56:00Addendum BeginsREPORT STATUS:A Additional postcontrast images of the lower extremities were performed utilizing a runoff protocol. Signed: Kp Engle MDReport Verified Date/Time: 01/09/2018 02:56:14 Reading Location: [address] Reading RoomAddendum EndsFINAL REPORT CLINICAL HISTORY: [...] the left. Postsurgical changes, as described. Signed: Kp Engle MDReport Verified Date/Time: 01/06/2018 19:53:17 Reading Location: [address] Reading Room Electronically signed by: KP ENGLE M.D. on 02:56 AMPOCT-GLUCOSE [id number] 20:28:00 Test Item Value Reference Range Comments POC-GLUCOSE METER (BEAKER) 177 mg/dL 70-110 TESTED AT [address] (test rkag=3345) [place] [id number] POCT-GLUCOSE [id number] 17:37:00 Test Item Value Reference Range Comments POC-GLUCOSE METER (BEAKER) 123 mg/dL 70-110 TESTED AT [address] (test vpfy=2979) [place] [id number] GLUCOSE-STAT [id number] 15:11:00 Test Item Value Reference Range Comments GLUCOSE RANDOM (BEAKER) (test rovu=555) 112 mg/dL 70-110 HGB/HCT (H&H) - STAT [id number] 15:11:00 Test Item Value Reference Range Comments HEMOGLOBIN (BEAKER) (test qovg=028) 11.0 g/dL 12.0-15.0 HEMATOCRIT (BEAKER) (test cpqi=191) 32.0 % 36.0-45.0 POCT-GLUCOSE [id number] 08:21:00 Test Item Value Reference Range Comments POC-GLUCOSE METER (BEAKER) 123 mg/dL 70-110 TESTED AT [address] (test epdh=9838) [place] [address] [id number] 05:17:00 Test Item Value Reference Range Comments MAGNESIUM (BEAKER) (test bkvz=591) 2.2 mg/dL 1.6-2.6 BASIC METABOLIC [id number] 05:17:00 Test Item Value Reference Range Comments SODIUM (BEAKER) (test 132 meq/L 136-145 dygn=207) POTASSIUM (BEAKER) (test 4.6 meq/L 3.5-5.1 zkda=021) CHLORIDE (BEAKER) (test 99 meq/L 98-107 bafg=408) CO2 (BEAKER) (test 25 meq/L 22-29 jcjv=771) BLOOD UREA NITROGEN 25 mg/dL 7-21 (BEAKER) (test xmeb=656) CREATININE (BEAKER) (test 0.85 mg/dL 0.57-1.25 ncaz=218) GLUCOSE RANDOM (BEAKER) 102 mg/dL 70-105 (test gqzp=828) CALCIUM (BEAKER) (test 9.1 mg/dL 8.4-10.2 zajz=980) EGFR (BEAKER) (test 67 mL/min/1.73 sq m ESTIMATED GFR IS NOT ktyr=0058) ACCURATE CREATININE CLEARANCE IN PREDICTING GLOMERULAR FILTRATION RATE. ESTIMATED GFR IS NOT APPLICABLE FOR DIALYSIS PATIENTS. [id number] 05:11:00 Test Item Value Reference Range Comments PROTIME (BEAKER) (test xgwy=104) 14.1 seconds 11.7-14.7 INR (BEAKER) (test heug=820) 1.1 <=5.9 PARTIAL THROMBOPLASTIN TIME (BEAKER) (test 34.5 seconds 22.5-36.0 whzr=635) RECOMMENDED COUMADIN/WARFARIN INR THERAPY RANGESSTANDARD DOSE: 2.0 - 3.0 Includes: PROPHYLAXIS forvenous thrombosis, systemic embolization; TREATMENT for venous thrombosis and/or pulmonary embolus.HIGH RISK: Target INR is 2.5-3.5 for patients with mechanical heart valves.[id number] 05:11:00 Test Item Value Reference Range Comments PARTIAL THROMBOPLASTIN TIME (BEAKER) (test 34.5 seconds 22.5-36.0 otkj=219) CBC W/PLT COUNT & AUTO [id number] 04:57:00 Test Item Value Reference Range Comments WHITE BLOOD CELL COUNT (BEAKER) (test utbo=248) 8.9 K/ L 3.5-10.5 RED BLOOD CELL COUNT (BEAKER) (test iytn=977) 3.57 M/ L 3.93-5.22 HEMOGLOBIN (BEAKER) (test hbha=588) 11.1 GM/DL 11.2-15.7 HEMATOCRIT (BEAKER) (test hhgm=645) 34.9 % 34.1-44.9 MEAN CORPUSCULAR VOLUME (BEAKER) (test djin=257) 97.8 fL 79.4-94.8 MEAN CORPUSCULAR HEMOGLOBIN (BEAKER) (test 31.1 pg 25.6-32.2 cxis=836) MEAN CORPUSCULAR HEMOGLOBIN CONC (BEAKER) (test 31.8 GM/DL 32.2-35.5 rbih=883) RED CELL DISTRIBUTION WIDTH (BEAKER) (test 12.3 % 11.7-14.4 dofq=265) PLATELET COUNT (BEAKER) (test csjw=360) 267 K/CU MM 150-450 MEAN PLATELET VOLUME (BEAKER) (test isuy=346) 13.3 fL 9.4-12.3 NUCLEATED RED BLOOD CELLS (BEAKER) (test 0 /100 WBC 0-0 yjls=800) NEUTROPHILS RELATIVE PERCENT (BEAKER) (test 64 % crgr=057) LYMPHOCYTES RELATIVE PERCENT (BEAKER) (test 21 % kkme=834) MONOCYTES RELATIVE PERCENT (BEAKER) (test 10 % nhkq=399) EOSINOPHILS RELATIVE PERCENT (BEAKER) (test 4 % uhty=490) BASOPHILS RELATIVE PERCENT (BEAKER) (test 0 % yhvi=018) NEUTROPHILS ABSOLUTE COUNT (BEAKER) (test 5.72 K/ L 1.56-6.13 lxlt=690) LYMPHOCYTES ABSOLUTE COUNT (BEAKER) (test 1.90 K/ L 1.18-3.74 hkji=400) MONOCYTES ABSOLUTE COUNT (BEAKER) (test 0.87 K/ L 0.24-0.36 uiqi=646) EOSINOPHILS ABSOLUTE COUNT (BEAKER) (test 0.33 K/ L 0.04-0.36 fjtt=286) BASOPHILS ABSOLUTE COUNT (BEAKER) (test 0.04 K/ L 0.01-0.08 vxcf=275) IMMATURE GRANULOCYTES-RELATIVE PERCENT (BEAKER) 1 % 0-1 (test kdrd=8634) POCT-GLUCOSE [id number] 20:47:00 Test Item Value Reference Range Comments POC-GLUCOSE METER (BEAKER) 131 mg/dL 70-[address] [facility] [address] [facility] (test gmvl=1825) [facility] [address] POCT-GLUCOSE [id number] 16:03:00 Test Item Value Reference Range Comments POC-GLUCOSE METER (BEAKER) 174 mg/dL 70-110 TESTED AT [address] (test jmny=1277) [facility] [address] POCT-GLUCOSE [id number] 13:49:00 Test Item Value Reference Range Comments POC-GLUCOSE METER (BEAKER) 100 mg/dL 70-110 TESTED AT [address] (test qiyf=1652) [facility] [address] POCT-GLUCOSE [id number] 13:05:00 Test Item Value Reference Range Comments POC-GLUCOSE METER (BEAKER) 70 mg/dL 70-110 TESTED AT [address] (test akkt=7951) [facility] [address] POCT-GLUCOSE [id number] 08:23:00 Test Item Value Reference Range Comments POC-GLUCOSE METER (BEAKER) 142 mg/dL 70-110 TESTED AT [address] (test agch=2477) [facility] [address] [id number] 07:10:00 Test Item Value Reference Range Comments MAGNESIUM (BEAKER) (test slru=352) 1.9 mg/dL 1.6-2.6 BASIC METABOLIC [id number] 07:10:00 Test Item Value Reference Range Comments SODIUM (BEAKER) (test 131 meq/L 136-145 wmqp=162) POTASSIUM (BEAKER) (test 4.2 meq/L 3.5-5.1 sghd=176) CHLORIDE (BEAKER) (test 97 meq/L 98-107 qwbl=971) CO2 (BEAKER) (test 25 meq/L 22-29 bnhx=247) BLOOD UREA NITROGEN 22 mg/dL 7-21 (BEAKER) (test hhns=720) CREATININE (BEAKER) (test 0.78 mg/dL 0.57-1.25 gaeq=866) GLUCOSE RANDOM (BEAKER) 167 mg/dL 70-105 (test amir=456) CALCIUM (BEAKER) (test 9.1 mg/dL 8.4-10.2 yenj=075) EGFR (BEAKER) (test 74 mL/min/1.73 sq m ESTIMATED GFR IS NOT sfxy=4262) ACCURATE CREATININE CLEARANCE IN PREDICTING GLOMERULAR FILTRATION RATE. ESTIMATED GFR IS NOT APPLICABLE FOR DIALYSIS PATIENTS. CBC W/PLT COUNT & AUTO [id number] 06:39:00 Test Item Value Reference Range Comments WHITE BLOOD CELL COUNT (BEAKER) (test xumq=382) 8.3 K/ L 3.5-10.5 RED BLOOD CELL COUNT (BEAKER) (test gtuq=564) 3.59 M/ L 3.93-5.22 HEMOGLOBIN (BEAKER) (test frfn=412) 11.4 GM/DL 11.2-15.7 HEMATOCRIT (BEAKER) (test qdsl=266) 35.1 % 34.1-44.9 MEAN CORPUSCULAR VOLUME (BEAKER) (test zscz=282) 97.8 fL 79.4-94.8 MEAN CORPUSCULAR HEMOGLOBIN (BEAKER) (test 31.8 pg 25.6-32.2 vego=946) MEAN CORPUSCULAR HEMOGLOBIN CONC (BEAKER) (test 32.5 GM/DL 32.2-35.5 hmdw=118) RED CELL DISTRIBUTION WIDTH (BEAKER) (test 12.4 % 11.7-14.4 cung=615) PLATELET COUNT (BEAKER) (test eqmj=324) 249 K/CU MM 150-450 MEAN PLATELET VOLUME (BEAKER) (test bnyv=680) 13.4 fL 9.4-12.3 NUCLEATED RED BLOOD CELLS (BEAKER) (test 0 /100 WBC 0-0 addl=171) NEUTROPHILS RELATIVE PERCENT (BEAKER) (test 66 % fapl=968) LYMPHOCYTES RELATIVE PERCENT (BEAKER) (test 21 % twts=840) MONOCYTES RELATIVE PERCENT (BEAKER) (test 9 % ehlv=998) EOSINOPHILS RELATIVE PERCENT (BEAKER) (test 3 % qngh=647) BASOPHILS RELATIVE PERCENT (BEAKER) (test 0 % opfu=523) NEUTROPHILS ABSOLUTE COUNT (BEAKER) (test 5.53 K/ L 1.56-6.13 bljw=493) LYMPHOCYTES ABSOLUTE COUNT (BEAKER) (test 1.71 K/ L 1.18-3.74 fsrv=879) MONOCYTES ABSOLUTE COUNT (BEAKER) (test 0.76 K/ L 0.24-0.36 pkob=238) EOSINOPHILS ABSOLUTE COUNT (BEAKER) (test 0.25 K/ L 0.04-0.36 ewxs=469) BASOPHILS ABSOLUTE COUNT (BEAKER) (test 0.03 K/ L 0.01-0.08 ajeq=412) IMMATURE GRANULOCYTES-RELATIVE PERCENT (BEAKER) 1 % 0-1 (test bbwx=9799) POCT-GLUCOSE [id number] 22:13:00 Test Item Value Reference Range Comments POC-GLUCOSE METER (BEAKER) 278 mg/dL 70-110 TESTED AT [address] (test gnjt=4333) [place] [id number] POCT-GLUCOSE [id number] 16:21:00 Test Item Value Reference Range Comments POC-GLUCOSE METER (BEAKER) 117 mg/dL 70-110 TESTED AT [address] (test ggcx=3630) [place] [id number] POCT-GLUCOSE [id number] 12:15:00 Test Item Value Reference Range Comments POC-GLUCOSE METER (BEAKER) 126 mg/dL 70-110 TESTED AT [address] (test ogvy=2683) [place] [address] B-TYPE NATRIURETIC FACTOR (BNP)2018-01-06 08:18:00 Test Item Value Reference Range Comments B-TYPE NATRIURETIC PEPTIDE (BEAKER) (test lqzb=551) 93 pg/mL 0-100 [id number] 07:52:00 Test Item Value Reference Range Comments MAGNESIUM (BEAKER) (test kdnv=265) 1.8 mg/dL 1.6-2.6 BASIC METABOLIC [id number] 07:52:00 Test Item Value Reference Range Comments SODIUM (BEAKER) (test 133 meq/L 136-145 scpc=684) POTASSIUM (BEAKER) (test 4.0 meq/L 3.5-5.1 wggk=240) CHLORIDE (BEAKER) (test 99 meq/L 98-107 qqdv=796) CO2 (BEAKER) (test 26 meq/L 22-29 xcvq=057) BLOOD UREA NITROGEN 19 mg/dL 7-21 (BEAKER) (test vvjp=183) CREATININE (BEAKER) (test 0.72 mg/dL 0.57-1.25 mzoy=735) GLUCOSE RANDOM (BEAKER) 193 mg/dL 70-105 (test byim=709) CALCIUM (BEAKER) (test 9.3 mg/dL 8.4-10.2 wziw=114) EGFR (BEAKER) (test 81 mL/min/1.73 sq m ESTIMATED GFR IS NOT eibl=4127) ACCURATE CREATININE CLEARANCE IN PREDICTING GLOMERULAR FILTRATION RATE. ESTIMATED GFR IS NOT APPLICABLE FOR DIALYSIS PATIENTS. POCT-GLUCOSE [id number] 07:38:00 Test Item Value Reference Range Comments POC-GLUCOSE METER (BEAKER) 204 mg/dL 70-[address] [facility] [address] (test dthy=7067) [facility] [address] CBC W/PLT COUNT & AUTO [id number] 07:36:00 Test Item Value Reference Range Comments WHITE BLOOD CELL COUNT (BEAKER) (test esig=123) 10.2 K/ L 3.5-10.5 RED BLOOD CELL COUNT (BEAKER) (test wweh=636) 3.73 M/ L 3.93-5.22 HEMOGLOBIN (BEAKER) (test cekz=157) 11.9 GM/DL 11.2-15.7 HEMATOCRIT (BEAKER) (test fvvk=521) 36.0 % 34.1-44.9 MEAN CORPUSCULAR VOLUME (BEAKER) (test sgom=648) 96.5 fL 79.4-94.8 MEAN CORPUSCULAR HEMOGLOBIN (BEAKER) (test 31.9 pg 25.6-32.2 mrjt=046) MEAN CORPUSCULAR HEMOGLOBIN CONC (BEAKER) (test 33.1 GM/DL 32.2-35.5 wait=168) RED CELL DISTRIBUTION WIDTH (BEAKER) (test 12.5 % 11.7-14.4 cztf=455) PLATELET COUNT (BEAKER) (test rwbg=284) 246 K/CU MM 150-450 MEAN PLATELET VOLUME (BEAKER) (test nawf=285) 13.4 fL 9.4-12.3 NUCLEATED RED BLOOD CELLS (BEAKER) (test 0 /100 WBC 0-0 hlsg=033) NEUTROPHILS RELATIVE PERCENT (BEAKER) (test 71 % gzkq=939) LYMPHOCYTES RELATIVE PERCENT (BEAKER) (test 19 % mins=732) MONOCYTES RELATIVE PERCENT (BEAKER) (test 8 % zlvg=111) EOSINOPHILS RELATIVE PERCENT (BEAKER) (test 2 % rctm=470) BASOPHILS RELATIVE PERCENT (BEAKER) (test 0 % ecql=335) NEUTROPHILS ABSOLUTE COUNT (BEAKER) (test 7.29 K/ L 1.56-6.13 oezn=776) LYMPHOCYTES ABSOLUTE COUNT (BEAKER) (test 1.93 K/ L 1.18-3.74 stbf=404) MONOCYTES ABSOLUTE COUNT (BEAKER) (test 0.81 K/ L 0.24-0.36 foqs=560) EOSINOPHILS ABSOLUTE COUNT (BEAKER) (test 0.15 K/ L 0.04-0.36 rqah=525) BASOPHILS ABSOLUTE COUNT (BEAKER) (test 0.03 K/ L 0.01-0.08 pjjp=687) IMMATURE GRANULOCYTES-RELATIVE PERCENT (BEAKER) 0 % 0-1 (test dgmf=1277) POCT-GLUCOSE [id number] 22:01:00 Test Item Value Reference Range Comments POC-GLUCOSE METER (BEAKER) 281 mg/dL 70-110 TESTED AT [address] (test mzmu=9135) [facility] [address] RAD, CHEST, 1 VIEW, NON [id number] 17:19:00Reason for exam:-> hypoxiaShould this be performed [...] tortuous. No acute osseous abnormality. Signed: Chandra Sterling Verified Date/Time: 01/05/2018 17:19:47 Reading Location: [facility] POCT-GLUCOSE [id number] 17:18:00 Test Item Value Reference Range Comments POC-GLUCOSE METER (BEAKER) 340 mg/dL 70-110 TESTED AT [address] (test aagz=6863) [facility] [address] POCT-GLUCOSE [id number] 13:18:00 Test Item Value Reference Range Comments POC-GLUCOSE METER (BEAKER) 333 mg/dL 70-110 Notified SAMAN HERNANDEZ/TESTED AT [facility] (test crvo=2117) [address] [place] [address] RAD, ANKLE, 2 VIEWS, [id number] 11:18:00Reason for exam:->left ankle ORIFShould this be [...] the left ankle as above. Signed: Macie Fraireepag Verified Date/Time: 01/05/2018 11:18:34 Reading Location: [facility] RadiologyReading Room HEMOGLOBIN [id number] 09:50:00 Test Item Value Reference Range Comments HEMOGLOBIN A1C (BEAKER) (test lyoi=005) 13.1 % 4.3-6.1 POCT-GLUCOSE [id number] 08:58:00 Test Item Value Reference Range Comments POC-GLUCOSE METER (BEAKER) 241 mg/dL 70-[address] [facility] [address] [place] [address] (test qgbp=1273) [facility] [address] [id number] 05:32:00 Test Item Value Reference Range Comments MAGNESIUM (BEAKER) (test inxm=553) 1.5 mg/dL 1.6-2.6 BASIC METABOLIC [id number] 05:32:00 Test Item Value Reference Range Comments SODIUM (BEAKER) (test 130 meq/L 136-145 zjjm=362) POTASSIUM (BEAKER) (test 3.5 meq/L 3.5-5.1 vjml=817) CHLORIDE (BEAKER) (test 96 meq/L 98-107 ubfh=640) CO2 (BEAKER) (test 26 meq/L 22-29 eylr=253) BLOOD UREA NITROGEN 17 mg/dL 7-21 (BEAKER) (test nlfg=724) CREATININE (BEAKER) (test 0.77 mg/dL 0.57-1.25 nbhu=434) GLUCOSE RANDOM (BEAKER) 221 mg/dL 70-105 (test iyvm=651) CALCIUM (BEAKER) (test 8.7 mg/dL 8.4-10.2 cxjq=953) EGFR (BEAKER) (test 75 mL/min/1.73 sq m ESTIMATED GFR IS NOT lxao=5825) ACCURATE CREATININE CLEARANCE IN PREDICTING GLOMERULAR FILTRATION RATE. ESTIMATED GFR IS NOT APPLICABLE FOR DIALYSIS PATIENTS. HEPATIC FUNCTION [id number] 05:32:00 Test Item Value Reference Range Comments TOTAL PROTEIN (BEAKER) (test fstc=187) 6.8 gm/dL 6.0-8.3 ALBUMIN (BEAKER) (test punr=8348) 3.0 g/dL 3.5-5.0 BILIRUBIN TOTAL (BEAKER) (test bsec=746) 0.6 mg/dL 0.2-1.2 BILIRUBIN DIRECT (BEAKER) (test xcqj=995) 0.3 mg/dL 0.1-0.5 ALKALINE PHOSPHATASE (BEAKER) (test aaqt=718) 216 U/L 40-150 AST (SGOT) (BEAKER) (test tzgg=951) 26 U/L 5-34 ALT (SGPT) (BEAKER) (test slnc=163) 32 U/L 6-55 PROTHROMBIN [id number] 05:12:00 Test Item Value Reference Range Comments PROTIME (BEAKER) (test fvsm=939) 14.2 seconds 11.7-14.7 INR (BEAKER) (test fdwd=523) 1.1 <=5.9 RECOMMENDED COUMADIN/WARFARIN INR THERAPY RANGESSTANDARD DOSE: 2.0 - 3.0 Includes: PROPHYLAXIS forvenous thrombosis, systemic embolization; TREATMENT for venous thrombosis and/or pulmonary embolus.HIGH RISK: Target INR is 2.5-3.5 for patients with mechanical heart valves.CBC W/PLT COUNT & AUTO [id number] 05:06:00 Test Item Value Reference Range Comments WHITE BLOOD CELL COUNT (BEAKER) (test txht=954) 10.1 K/ L 3.5-10.5 RED BLOOD CELL COUNT (BEAKER) (test gdhr=243) 3.87 M/ L 3.93-5.22 HEMOGLOBIN (BEAKER) (test dvwy=026) 12.3 GM/DL 11.2-15.7 HEMATOCRIT (BEAKER) (test gzft=635) 37.3 % 34.1-44.9 MEAN CORPUSCULAR VOLUME (BEAKER) (test ikrl=527) 96.4 fL 79.4-94.8 MEAN CORPUSCULAR HEMOGLOBIN (BEAKER) (test 31.8 pg 25.6-32.2 koge=673) MEAN CORPUSCULAR HEMOGLOBIN CONC (BEAKER) (test 33.0 GM/DL 32.2-35.5 ymkt=831) RED CELL DISTRIBUTION WIDTH (BEAKER) (test 12.5 % 11.7-14.4 xzdh=813) PLATELET COUNT (BEAKER) (test izrs=318) 229 K/CU MM 150-450 MEAN PLATELET VOLUME (BEAKER) (test amoz=596) 13.4 fL 9.4-12.3 NUCLEATED RED BLOOD CELLS (BEAKER) (test 0 /100 WBC 0-0 yozh=507) NEUTROPHILS RELATIVE PERCENT (BEAKER) (test 75 % pnsj=003) LYMPHOCYTES RELATIVE PERCENT (BEAKER) (test 15 % cddq=546) MONOCYTES RELATIVE PERCENT (BEAKER) (test 8 % jiur=173) EOSINOPHILS RELATIVE PERCENT (BEAKER) (test 2 % taxf=574) BASOPHILS RELATIVE PERCENT (BEAKER) (test 0 % fxsh=804) NEUTROPHILS ABSOLUTE COUNT (BEAKER) (test 7.56 K/ L 1.56-6.13 hczn=343) LYMPHOCYTES ABSOLUTE COUNT (BEAKER) (test 1.48 K/ L 1.18-3.74 wndn=640) MONOCYTES ABSOLUTE COUNT (BEAKER) (test 0.80 K/ L 0.24-0.36 rurl=105) EOSINOPHILS ABSOLUTE COUNT (BEAKER) (test 0.20 K/ L 0.04-0.36 pkvk=032) BASOPHILS ABSOLUTE COUNT (BEAKER) (test 0.02 K/ L 0.01-0.08 dalo=140) IMMATURE GRANULOCYTES-RELATIVE PERCENT (BEAKER) 0 % 0-1 (test yfbc=8897) SPUTUM CULTURE + GRAM [id number] 15:32:00 Test Item Value Reference Range Comments CULTURE (BEAKER) 4+ Haemophilus (test haib=1696) influenzaeBeta-lactamase negative GRAM STAIN RESULT 4+ WBCs (BEAKER) (test ywno=2942) GRAM STAIN RESULT 0-5 epithelial cells (BEAKER) (test iobm=143855) GRAM STAIN RESULT <1+ gram positive rods (BEAKER) (test pgwd=121917) GRAM STAIN RESULT 2+ gram positive cocci (BEAKER) (test in pairs rwek=130071) 4+ Normal respiratory lor presentPOCT-GLUCOSE [id number] 12:42:00 Test Item Value Reference Range Comments POC-GLUCOSE METER (BEAKER) 302 mg/dL 70-110 Notified SAMAN HERNANDEZ/TESTED AT [facility] (test wzaw=5804) [address] [facility] [address] POCT-GLUCOSE [id number] 07:51:00 Test Item Value Reference Range Comments POC-GLUCOSE METER (BEAKER) 264 mg/dL 70-110 TESTED AT [address] (test csrn=9973) [facility] [address] CALCIUM, [id number] 05:24:00 Test Item Value Reference Range Comments CALCIUM IONIZED (BEAKER) (test rcoo=348) 1.11 mmol/L 1.12-1.27 PH, BLOOD (BEAKER) (test zmpp=0398) 7.47 [id number] 04:43:00 Test Item Value Reference Range Comments PHOSPHORUS (BEAKER) (test ndtt=333) 3.2 mg/dL 2.3-4.7 [id number] 04:43:00 Test Item Value Reference Range Comments MAGNESIUM (BEAKER) (test xwwu=264) 1.3 mg/dL 1.6-2.6 BASIC METABOLIC [id number] 04:43:00 Test Item Value Reference Range Comments SODIUM (BEAKER) (test 137 meq/L 136-145 lspt=259) POTASSIUM (BEAKER) (test 3.4 meq/L 3.5-5.1 cjyn=926) CHLORIDE (BEAKER) (test 103 meq/L 98-107 bgip=734) CO2 (BEAKER) (test 25 meq/L 22-29 aoee=948) BLOOD UREA NITROGEN 22 mg/dL 7-21 (BEAKER) (test ihmj=330) CREATININE (BEAKER) (test 0.74 mg/dL 0.57-1.25 pdei=437) GLUCOSE RANDOM (BEAKER) 237 mg/dL 70-105 (test frfx=974) CALCIUM (BEAKER) (test 9.0 mg/dL 8.4-10.2 awsy=731) EGFR (BEAKER) (test 79 mL/min/1.73 sq m ESTIMATED GFR IS NOT nyvb=4777) ACCURATE CREATININE CLEARANCE IN PREDICTING GLOMERULAR FILTRATION RATE. ESTIMATED GFR IS NOT APPLICABLE FOR DIALYSIS PATIENTS. CBC W/PLT COUNT & AUTO [id number] 04:05:00 Test Item Value Reference Range Comments WHITE BLOOD CELL COUNT (BEAKER) (test eglg=554) 8.1 K/ L 3.5-10.5 RED BLOOD CELL COUNT (BEAKER) (test bvdp=335) 3.43 M/ L 3.93-5.22 HEMOGLOBIN (BEAKER) (test gluu=530) 10.9 GM/DL 11.2-15.7 HEMATOCRIT (BEAKER) (test njrs=970) 32.2 % 34.1-44.9 MEAN CORPUSCULAR VOLUME (BEAKER) (test fypi=063) 93.9 fL 79.4-94.8 MEAN CORPUSCULAR HEMOGLOBIN (BEAKER) (test 31.8 pg 25.6-32.2 syup=537) MEAN CORPUSCULAR HEMOGLOBIN CONC (BEAKER) (test 33.9 GM/DL 32.2-35.5 psyc=670) RED CELL DISTRIBUTION WIDTH (BEAKER) (test 13.2 % 11.7-14.4 nkza=771) PLATELET COUNT (BEAKER) (test kvag=524) 225 K/CU MM 150-450 MEAN PLATELET VOLUME (BEAKER) (test lxnz=302) 12.9 fL 9.4-12.3 NUCLEATED RED BLOOD CELLS (BEAKER) (test 0 /100 WBC 0-0 sbua=065) NEUTROPHILS RELATIVE PERCENT (BEAKER) (test 60 % rjep=017) LYMPHOCYTES RELATIVE PERCENT (BEAKER) (test 26 % asyb=500) MONOCYTES RELATIVE PERCENT (BEAKER) (test 8 % xhjn=343) EOSINOPHILS RELATIVE PERCENT (BEAKER) (test 6 % rzgg=777) BASOPHILS RELATIVE PERCENT (BEAKER) (test 0 % mdil=642) NEUTROPHILS ABSOLUTE COUNT (BEAKER) (test 4.83 K/ L 1.56-6.13 ykao=197) LYMPHOCYTES ABSOLUTE COUNT (BEAKER) (test 2.09 K/ L 1.18-3.74 ksqd=090) MONOCYTES ABSOLUTE COUNT (BEAKER) (test 0.66 K/ L 0.24-0.36 pncg=021) EOSINOPHILS ABSOLUTE COUNT (BEAKER) (test 0.48 K/ L 0.04-0.36 gwox=716) BASOPHILS ABSOLUTE COUNT (BEAKER) (test 0.03 K/ L 0.01-0.08 evnk=508) IMMATURE GRANULOCYTES-RELATIVE PERCENT (BEAKER) 0 % 0-1 (test ctob=0822) POCT-GLUCOSE [id number] 21:31:00 Test Item Value Reference Range Comments POC-GLUCOSE METER (BEAKER) 186 mg/dL 70-110 TESTED AT [address] (test wpsn=0187) [place] [id number] POCT-GLUCOSE [id number] 18:45:00 Test Item Value Reference Range Comments POC-GLUCOSE METER (BEAKER) 215 mg/dL 70-110 TESTED AT [address] (test paqd=0898) [place] [id number] POCT-GLUCOSE [id number] 12:34:00 Test Item Value Reference Range Comments POC-GLUCOSE METER (BEAKER) 428 mg/dL 70-110 Notified SAMAN HERNANDEZ/TESTED AT [facility] (test lwhm=1188) [address] [place] [address] RAD, CHEST, 1 VIEW, NON [id number] 09:30:00Reason for exam:->Respiratory distress Should this be [...] appear unchanged. No pneumothorax is seen. Signed: Fay Hercules Verified Date/Time: 07/12/2017 09:30:37 Reading Location: [facility] Radiology Reading Room POCT-GLUCOSE [id number] 07:54:00 Test Item Value Reference Range Comments POC-GLUCOSE METER (BEAKER) 332 mg/dL 70-[address] [facility] [address] (test bumk=4442) [facility] [address] VITAMIN [id number] 06:24:00 Test Item Value Reference Range Comments VITAMIN B12 (BEAKER) (test qoid=349) 318 pg/mL 213-816 BASIC METABOLIC [id number] 05:51:00 Test Item Value Reference Range Comments SODIUM (BEAKER) (test 141 meq/L 136-145 byoo=297) POTASSIUM (BEAKER) (test 3.6 meq/L 3.5-5.1 phlh=713) CHLORIDE (BEAKER) (test 108 meq/L 98-107 tiyl=128) CO2 (BEAKER) (test 25 meq/L 22-29 hygg=365) BLOOD UREA NITROGEN 19 mg/dL 7-21 (BEAKER) (test zzxh=729) CREATININE (BEAKER) (test 0.82 mg/dL 0.57-1.25 tuar=846) GLUCOSE RANDOM (BEAKER) 393 mg/dL 70-105 (test xroz=320) CALCIUM (BEAKER) (test 8.9 mg/dL 8.4-10.2 osmp=110) EGFR (BEAKER) (test 70 mL/min/1.73 sq m ESTIMATED GFR IS NOT bzgq=7834) ACCURATE CREATININE CLEARANCE IN PREDICTING GLOMERULAR FILTRATION RATE. ESTIMATED GFR IS NOT APPLICABLE FOR DIALYSIS PATIENTS. CBC W/PLT COUNT & AUTO [id number] 05:26:00 Test Item Value Reference Range Comments WHITE BLOOD CELL COUNT (BEAKER) (test nckq=639) 8.0 K/ L 3.5-10.5 RED BLOOD CELL COUNT (BEAKER) (test rayr=827) 3.44 M/ L 3.93-5.22 HEMOGLOBIN (BEAKER) (test hkkq=882) 10.7 GM/DL 11.2-15.7 HEMATOCRIT (BEAKER) (test vywp=692) 32.8 % 34.1-44.9 MEAN CORPUSCULAR VOLUME (BEAKER) (test uomy=267) 95.3 fL 79.4-94.8 MEAN CORPUSCULAR HEMOGLOBIN (BEAKER) (test 31.1 pg 25.6-32.2 vepp=052) MEAN CORPUSCULAR HEMOGLOBIN CONC (BEAKER) (test 32.6 GM/DL 32.2-35.5 ajsg=622) RED CELL DISTRIBUTION WIDTH (BEAKER) (test 13.5 % 11.7-14.4 qekl=010) PLATELET COUNT (BEAKER) (test htcr=614) 200 K/CU MM 150-450 MEAN PLATELET VOLUME (BEAKER) (test lbkp=897) 13.0 fL 9.4-12.3 NUCLEATED RED BLOOD CELLS (BEAKER) (test 0 /100 WBC 0-0 exsa=400) NEUTROPHILS RELATIVE PERCENT (BEAKER) (test 64 % fdjr=539) LYMPHOCYTES RELATIVE PERCENT (BEAKER) (test 22 % pvwa=469) MONOCYTES RELATIVE PERCENT (BEAKER) (test 7 % mcun=367) EOSINOPHILS RELATIVE PERCENT (BEAKER) (test 6 % tgyg=834) BASOPHILS RELATIVE PERCENT (BEAKER) (test 1 % fzta=789) NEUTROPHILS ABSOLUTE COUNT (BEAKER) (test 5.11 K/ L 1.56-6.13 slrt=695) LYMPHOCYTES ABSOLUTE COUNT (BEAKER) (test 1.73 K/ L 1.18-3.74 pwud=595) MONOCYTES ABSOLUTE COUNT (BEAKER) (test 0.59 K/ L 0.24-0.36 ylls=199) EOSINOPHILS ABSOLUTE COUNT (BEAKER) (test 0.47 K/ L 0.04-0.36 vdum=842) BASOPHILS ABSOLUTE COUNT (BEAKER) (test 0.05 K/ L 0.01-0.08 abah=907) IMMATURE GRANULOCYTES-RELATIVE PERCENT (BEAKER) 0 % 0-1 (test xxfj=8002) POCT-GLUCOSE [id number] 22:48:00 Test Item Value Reference Range Comments POC-GLUCOSE METER (BEAKER) 376 mg/dL 70-110 Notified SAMAN HERNANDEZ/TESTED AT [facility] (test hkzp=5069) [address] [place] [address] POCT-GLUCOSE [id number] 22:04:00 Test Item Value Reference Range Comments POC-GLUCOSE METER (BEAKER) 434 mg/dL 70-110 Notified SAMAN HERNANDEZ/TESTED AT [facility] (test yfbl=5772) [address] [facility] [address] POCT-GLUCOSE [id number] 18:16:00 Test Item Value Reference Range Comments POC-GLUCOSE METER (BEAKER) 340 mg/dL 70-110 Notified SAMAN HERNANDEZ/TESTED AT [facility] (test zplq=5752) [address] [place] [address] POCT-GLUCOSE [id number] 12:40:00 Test Item Value Reference Range Comments POC-GLUCOSE METER (BEAKER) 339 mg/dL 70-110 Notified SAMAN HERNANDEZ/TESTED AT [facility] (test onzg=2786) [address] [place] [address] POCT-GLUCOSE [id number] 08:40:00 Test Item Value Reference Range Comments POC-GLUCOSE METER (BEAKER) 290 mg/dL 70-110 TESTED AT [address] (test ntku=6347) [facility] [address] RAD, CHEST, 1 VIEW, NON [id number] 08:02:00Reason for exam:-> intubatedShould this be performed [...] is stable. No pneumothorax is seen. Signed: Fay Hercules Verified Date/Time: 07/11/2017 08:02:13 Reading Location: [facility] Radiology Reading Room POCT-GLUCOSE [id number] 06:33:00 Test Item Value Reference Range Comments POC-GLUCOSE METER (BEAKER) 354 mg/dL 70-110 Notified SAMAN HERNANDEZ/TESTED AT [facility] (test arzp=1697) [address] [place] [address] BLOOD GAS, [id number] 05:30:00 Test Item Value Reference Range Comments PH ARTERIAL (BEAKER) (test qbgw=413) 7.42 7.35-7.45 PCO2 ARTERIAL (BEAKER) (test vfkd=080) 29 mmHg 35-45 PO2 ARTERIAL (BEAKER) (test bczc=046) 96 mmHg 80-90 O2 SATURATION ARTERIAL (BEAKER) (test gxtm=860) 97.5 % 96.0-97.0 HCO3 ARTERIAL (BEAKER) (test jwah=594) 18 mmol/L 21-29 BASE EXCESS ARTERIAL (BEAKER) (test lxho=159) -5.1 mmol/L -2.0-3.0 PATIENT TEMPERATURE (BEAKER) (test txau=2024) 37.0 C FIO2 (BEAKER) (test owpe=8842) 21.0 % BASIC METABOLIC [id number] 03:15:00 Test Item Value Reference Range Comments SODIUM (BEAKER) (test 138 meq/L 136-145 wudo=615) POTASSIUM (BEAKER) (test 3.9 meq/L 3.5-5.1 rwkd=245) CHLORIDE (BEAKER) (test 109 meq/L 98-107 ggxo=126) CO2 (BEAKER) (test 18 meq/L 22-29 fjix=071) BLOOD UREA NITROGEN 18 mg/dL 7-21 (BEAKER) (test nekz=153) CREATININE (BEAKER) (test 0.79 mg/dL 0.57-1.25 mbwq=775) GLUCOSE RANDOM (BEAKER) 349 mg/dL 70-105 (test vrlq=276) CALCIUM (BEAKER) (test 8.2 mg/dL 8.4-10.2 hnzl=606) EGFR (BEAKER) (test 73 mL/min/1.73 sq m ESTIMATED GFR IS NOT ouqr=7789) ACCURATE CREATININE CLEARANCE IN PREDICTING GLOMERULAR FILTRATION RATE. ESTIMATED GFR IS NOT APPLICABLE FOR DIALYSIS PATIENTS. BLOOD GAS, [id number] 03:03:00 Test Item Value Reference Range Comments PH ARTERIAL (BEAKER) (test riqo=366) 7.46 7.35-7.45 PCO2 ARTERIAL (BEAKER) (test lubs=369) 31 mmHg 35-45 PO2 ARTERIAL (BEAKER) (test bury=091) 62 mmHg 80-90 O2 SATURATION ARTERIAL (BEAKER) (test dmbg=094) 93.1 % 96.0-97.0 HCO3 ARTERIAL (BEAKER) (test qrqb=850) 21 mmol/L 21-29 BASE EXCESS ARTERIAL (BEAKER) (test ijod=503) -1.6 mmol/L -2.0-3.0 PATIENT TEMPERATURE (BEAKER) (test runv=5013) 37.0 C FIO2 (BEAKER) (test nlha=0553) 60.0 % CBC W/PLT COUNT & AUTO [id number] 03:03:00 Test Item Value Reference Range Comments WHITE BLOOD CELL COUNT (BEAKER) (test fatr=328) 11.5 K/ L 3.5-10.5 RED BLOOD CELL COUNT (BEAKER) (test efpe=263) 3.57 M/ L 3.93-5.22 HEMOGLOBIN (BEAKER) (test zfcy=073) 11.0 GM/DL 11.2-15.7 HEMATOCRIT (BEAKER) (test rhbm=641) 33.3 % 34.1-44.9 MEAN CORPUSCULAR VOLUME (BEAKER) (test udff=991) 93.3 fL 79.4-94.8 MEAN CORPUSCULAR HEMOGLOBIN (BEAKER) (test 30.8 pg 25.6-32.2 glcq=402) MEAN CORPUSCULAR HEMOGLOBIN CONC (BEAKER) (test 33.0 GM/DL 32.2-35.5 ikit=679) RED CELL DISTRIBUTION WIDTH (BEAKER) (test 13.4 % 11.7-14.4 eton=381) PLATELET COUNT (BEAKER) (test tvey=801) 181 K/CU MM 150-450 MEAN PLATELET VOLUME (BEAKER) (test lqfr=396) 13.1 fL 9.4-12.3 NUCLEATED RED BLOOD CELLS (BEAKER) (test 0 /100 WBC 0-0 rvzg=246) NEUTROPHILS RELATIVE PERCENT (BEAKER) (test 87 % mhnm=088) LYMPHOCYTES RELATIVE PERCENT (BEAKER) (test 6 % pyyq=239) MONOCYTES RELATIVE PERCENT (BEAKER) (test 5 % vqlc=150) EOSINOPHILS RELATIVE PERCENT (BEAKER) (test 1 % qfuh=232) BASOPHILS RELATIVE PERCENT (BEAKER) (test 1 % xlxk=075) NEUTROPHILS ABSOLUTE COUNT (BEAKER) (test 9.98 K/ L 1.56-6.13 gntb=202) LYMPHOCYTES ABSOLUTE COUNT (BEAKER) (test 0.67 K/ L 1.18-3.74 xdbs=706) MONOCYTES ABSOLUTE COUNT (BEAKER) (test 0.56 K/ L 0.24-0.36 twwp=746) EOSINOPHILS ABSOLUTE COUNT (BEAKER) (test 0.12 K/ L 0.04-0.36 sozi=591) BASOPHILS ABSOLUTE COUNT (BEAKER) (test 0.07 K/ L 0.01-0.08 brwi=001) IMMATURE GRANULOCYTES-RELATIVE PERCENT (BEAKER) 1 % 0-1 (test ybtm=6574) POCT-GLUCOSE [id number] 00:49:00 Test Item Value Reference Range Comments POC-GLUCOSE METER (BEAKER) 301 mg/dL 70-110 Notified SAMAN HERNANDEZ/TESTED AT [facility] (test vlha=7439) [address] [facility] [address] TROPONIN [id number] 00:36:00 Test Item Value Reference Range Comments TROPONIN I (BEAKER) (test qkzx=252) 0.17 ng/mL 0.00-0.03 Troponin I (TnI) levels [...] and persistent tachyarrhythmia.CREATINE KINASE (CK), TOTAL AND [id number] 00:33:00 Test Item Value Reference Range Comments CREATINE KINASE TOTAL (BEAKER) (test ivwx=215) 168 U/L 29-200 CREATINE KINASE-MB (BEAKER) (test gnji=696) 1.2 ng/mL 0.0-6.6 CREATINE KINASE-MB INDEX (BEAKER) (test yqmz=234) 0.7 % CK-MB Reference Range:<6.7 Normal6.7-10.0 Borderline>10.0 AbnormalPOCT-GLUCOSE [id number] 18:13:00 Test Item Value Reference Range Comments POC-GLUCOSE METER (BEAKER) 302 mg/dL 70-[address] [facility] [address] [place] [address] (test jlmg=7433) [facility] [address] TROPONIN [id number] 17:15:00 Test Item Value Reference Range Comments TROPONIN I (BEAKER) (test ajnk=267) 0.32 ng/mL 0.00-0.03 Troponin I (TnI) levels [...] and persistent tachyarrhythmia.CREATINE KINASE (CK), TOTAL AND [id number] 17:05:00 Test Item Value Reference Range Comments CREATINE KINASE TOTAL (BEAKER) (test dkph=585) 213 U/L 29-200 CREATINE KINASE-MB (BEAKER) (test bjeh=838) 2.1 ng/mL 0.0-6.6 CREATINE KINASE-MB INDEX (BEAKER) (test pxtp=268) 1.0 % CK-MB Reference Range:<6.7 Normal6.7-10.0 Borderline>10.0 AbnormalPOCT-GLUCOSE [id number] 12:22:00 Test Item Value Reference Range Comments POC-GLUCOSE METER (BEAKER) 240 mg/dL 70-110 TESTED AT [address] (test rfvi=7820) [place] [address] B-TYPE NATRIURETIC FACTOR (BNP)[id number] 12:01:00 Test Item Value Reference Range Comments B-TYPE NATRIURETIC PEPTIDE (BEAKER) (test 524 pg/mL 0-100 hldg=688) POCT-GLUCOSE [id number] 06:33:00 Test Item Value Reference Range Comments POC-GLUCOSE METER (BEAKER) 227 mg/dL 70-110 TESTED AT [address] (test jxuu=6498) [place] [id number] COMPREHENSIVE METABOLIC [id number] 06:19:00 Test Item Value Reference Range Comments TOTAL PROTEIN (BEAKER) 6.7 gm/dL 6.0-8.3 (test xxsy=039) ALBUMIN (BEAKER) (test 3.2 g/dL 3.5-5.0 voja=9271) ALKALINE PHOSPHATASE 77 U/L 40-150 (BEAKER) (test bnzk=870) BILIRUBIN TOTAL (BEAKER) 0.9 mg/dL 0.2-1.2 (test oewr=731) SODIUM (BEAKER) (test 139 meq/L 136-145 hioa=214) POTASSIUM (BEAKER) (test 3.7 meq/L 3.5-5.1 qscd=161) CHLORIDE (BEAKER) (test 109 meq/L 98-107 lmxs=268) CO2 (BEAKER) (test 18 meq/L 22-29 nidn=025) BLOOD UREA NITROGEN 13 mg/dL 7-21 (BEAKER) (test lwlx=814) CREATININE (BEAKER) (test 0.69 mg/dL 0.57-1.25 jjmc=275) GLUCOSE RANDOM (BEAKER) 250 mg/dL 70-105 (test iqhg=199) CALCIUM (BEAKER) (test 8.0 mg/dL 8.4-10.2 ssjp=257) AST (SGOT) (BEAKER) (test 18 U/L 5-34 xxgv=919) ALT (SGPT) (BEAKER) (test 13 U/L 6-55 xwvm=443) EGFR (BEAKER) (test 85 mL/min/1.73 sq m ESTIMATED GFR IS NOT cuya=9556) ACCURATE CREATININE CLEARANCE IN PREDICTING GLOMERULAR FILTRATION RATE. ESTIMATED GFR IS NOT APPLICABLE FOR DIALYSIS PATIENTS. BASIC METABOLIC [id number] 06:19:00 Test Item Value Reference Range Comments SODIUM (BEAKER) (test 139 meq/L 136-145 wveq=050) POTASSIUM (BEAKER) (test 3.7 meq/L 3.5-5.1 oqpv=046) CHLORIDE (BEAKER) (test 109 meq/L 98-107 hyzy=849) CO2 (BEAKER) (test 18 meq/L 22-29 ggaf=840) BLOOD UREA NITROGEN 13 mg/dL 7-21 (BEAKER) (test ztvr=035) CREATININE (BEAKER) (test 0.69 mg/dL 0.57-1.25 uoiw=865) GLUCOSE RANDOM (BEAKER) 250 mg/dL 70-105 (test fiyo=579) CALCIUM (BEAKER) (test 8.0 mg/dL 8.4-10.2 mpae=512) EGFR (BEAKER) (test 85 mL/min/1.73 sq m ESTIMATED GFR IS NOT bpbb=5891) ACCURATE CREATININE CLEARANCE IN PREDICTING GLOMERULAR FILTRATION RATE. ESTIMATED GFR IS NOT APPLICABLE FOR DIALYSIS PATIENTS. BLOOD GAS, [id number] 06:13:00 Test Item Value Reference Range Comments PH ARTERIAL (BEAKER) (test vmbi=832) 7.42 7.35-7.45 PCO2 ARTERIAL (BEAKER) (test xsor=994) 34 mmHg 35-45 PO2 ARTERIAL (BEAKER) (test qcju=287) 106 mmHg 80-90 O2 SATURATION ARTERIAL (BEAKER) (test gbra=985) 98.0 % 96.0-97.0 HCO3 ARTERIAL (BEAKER) (test akki=442) 22 mmol/L 21-29 BASE EXCESS ARTERIAL (BEAKER) (test vmwz=570) -2.3 mmol/L -2.0-3.0 PATIENT TEMPERATURE (BEAKER) (test srxu=3728) 37.0 C FIO2 (BEAKER) (test lttg=8589) 50.0 % CBC W/PLT COUNT & AUTO [id number] 05:53:00 Test Item Value Reference Range Comments WHITE BLOOD CELL COUNT (BEAKER) (test icxg=745) 12.9 K/ L 3.5-10.5 RED BLOOD CELL COUNT (BEAKER) (test wfvw=144) 3.78 M/ L 3.93-5.22 HEMOGLOBIN (BEAKER) (test oqcg=170) 11.9 GM/DL 11.2-15.7 HEMATOCRIT (BEAKER) (test tull=816) 35.5 % 34.1-44.9 MEAN CORPUSCULAR VOLUME (BEAKER) (test oduc=987) 93.9 fL 79.4-94.8 MEAN CORPUSCULAR HEMOGLOBIN (BEAKER) (test 31.5 pg 25.6-32.2 lgnh=231) MEAN CORPUSCULAR HEMOGLOBIN CONC (BEAKER) (test 33.5 GM/DL 32.2-35.5 wncr=408) RED CELL DISTRIBUTION WIDTH (BEAKER) (test 13.5 % 11.7-14.4 uwvk=736) PLATELET COUNT (BEAKER) (test fcwg=111) 198 K/CU MM 150-450 MEAN PLATELET VOLUME (BEAKER) (test jjei=617) 12.7 fL 9.4-12.3 NUCLEATED RED BLOOD CELLS (BEAKER) (test 0 /100 WBC 0-0 cejc=651) NEUTROPHILS RELATIVE PERCENT (BEAKER) (test 77 % iine=708) LYMPHOCYTES RELATIVE PERCENT (BEAKER) (test 14 % zwgp=049) MONOCYTES RELATIVE PERCENT (BEAKER) (test 7 % wulf=049) EOSINOPHILS RELATIVE PERCENT (BEAKER) (test 2 % kqym=480) BASOPHILS RELATIVE PERCENT (BEAKER) (test 0 % vddv=747) NEUTROPHILS ABSOLUTE COUNT (BEAKER) (test 9.92 K/ L 1.56-6.13 bzxu=011) LYMPHOCYTES ABSOLUTE COUNT (BEAKER) (test 1.74 K/ L 1.18-3.74 brkh=191) MONOCYTES ABSOLUTE COUNT (BEAKER) (test 0.85 K/ L 0.24-0.36 wkjm=581) EOSINOPHILS ABSOLUTE COUNT (BEAKER) (test 0.22 K/ L 0.04-0.36 xzhx=893) BASOPHILS ABSOLUTE COUNT (BEAKER) (test 0.05 K/ L 0.01-0.08 xboc=662) IMMATURE GRANULOCYTES-RELATIVE PERCENT (BEAKER) 1 % 0-1 (test vafq=0438) LACTIC ACID, ARTERIAL, WHOLE [id number] 05:17:00 Test Item Value Reference Range Comments LACTATE BLOOD ARTERIAL (2) (BEAKER) (test 0.8 mmol/L 0.5-2.2 peuw=2034) Effective 09/02/2015: Units/Reference Range ChangeNew: 0.5-2.2 mmol/L Previous: 5 -20 mg/dLRAD, CHEST, 1 VIEW, NON [id number] 03:58:00Reason for exam:-> concern for aspirationShould this be performed at the bedside?->YesFINAL REPORT RAD, CHEST, 1 VIEW, NON DEPT INDICATION: concern for aspiration COMPARISON: Prior day's exam TECHNIQUE: Portable frontal view of the chest. IMPRESSION: Interval extubation.Stable cardiomegaly.Worsening pulmonary interstitial edema.No pneumothorax.No acute osseous abnormality. Signed: Jb Veronica MDReport Verified Date/Time: 07/10/2017 03:58:42 Reading Location: [facility] C013X Ortho Consult Reading Room CT, BRAIN, WITHOUT [id number] 03:09:00Reason for exam:->Stroke evaluationFINAL REPORT CT, BRAIN, [...] MDReport Verified Date/Time: 07/10/2017 03:09:32 Reading Location: [facility] C013X Ortho Consult Reading Room POCT- GLUCOSE [id number] 00:20:00 Test Item Value Reference Range Comments POC-GLUCOSE METER (BEAKER) 200 mg/dL 70-110 TESTED AT [place] [id number] [facility] (test toxn=5247) [facility] [address] POCT-GLUCOSE [id number] 20:32:00 Test Item Value Reference Range Comments POC-GLUCOSE METER (BEAKER) 237 mg/dL 70-110 TESTED AT [place] [id number] [facility] (test fzud=6346) [facility] [address] URINALYSIS W/ [id number] 20:08:00 Test Item Value Reference Range Comments COLOR (BEAKER) (test absx=379) Light Yellow CLARITY (BEAKER) (test rvcr=662) Clear SPECIFIC GRAVITY UA (BEAKER) (test jfpz=522) 1.009 1.001-1.035 PH UA (BEAKER) (test epnz=119) 5.5 5.0-8.0 PROTEIN UA (BEAKER) (test cswi=266) 70 mg/dL Negative GLUCOSE UA (BEAKER) (test pbda=971) 50 mg/dL Negative KETONES UA (BEAKER) (test jhqh=706) Negative Negative BILIRUBIN UA (BEAKER) (test nxqa=355) Negative Negative BLOOD UA (BEAKER) (test mwjn=308) Negative Negative NITRITE UA (BEAKER) (test ctwa=957) Negative Negative LEUKOCYTE ESTERASE UA (BEAKER) (test usrf=932) Trace Negative UROBILINOGEN UA (BEAKER) (test grkp=281) 0.2 mg/dL 0.2-1.0 RBC UA (BEAKER) (test kofg=216) < /HPF WBC UA (BEAKER) (test vzvo=728) 25 /HPF BACTERIA (BEAKER) (test qman=752) Rare MUCUS (BEAKER) (test zcpr=6816) Rare SQUAMOUS EPITHELIAL (BEAKER) (test bhne=455) 1 /HPF SOURCE(BEAKER) (test fhoo=9860) POCT-GLUCOSE [id number] 18:44:00 Test Item Value Reference Range Comments POC-GLUCOSE METER (BEAKER) 174 mg/dL 70-110 TESTED AT [address] (test hnaq=4808) [place] [address] HEMOGLOBIN [id number] 14:47:00 Test Item Value Reference Range Comments HEMOGLOBIN A1C (BEAKER) (test kzsl=584) 12.4 % 4.3-6.1 POCT-GLUCOSE [id number] 11:44:00 Test Item Value Reference Range Comments POC-GLUCOSE METER (BEAKER) 149 mg/dL 70-110 TESTED AT [address] (test gzio=3701) [place] [address] RAD, CHEST, 1 VIEW, NON [id number] 07:42:00Reason for exam:-> intubatedShould this be performed [...] Verified Date/ Time: 07/09/2017 07:42:12 Reading Location: [facility] C013Y CT Body Reading Room CT BRAIN WITHOUT IV CONTRAST - [id number] 07:37:00Reason for exam:->L. MCA strokeFINAL REPORT CT [...] MDReport Verified Date/Time: 07/09/2017 07:37:39 Reading Location: [address] Neuro Reading Room TSH/FREE T4 IF [id number] 05:41:00 Test Item Value Reference Range Comments THYROID STIMULATING HORMONE (BEAKER) (test 0.60 uIU/mL 0.35-4.94 hmoe=441) BASIC METABOLIC [id number] 04:33:00 Test Item Value Reference Range Comments SODIUM (BEAKER) (test 138 meq/L 136-145 oefv=019) POTASSIUM (BEAKER) (test 3.4 meq/L 3.5-5.1 fbqw=295) CHLORIDE (BEAKER) (test 107 meq/L 98-107 msjo=606) CO2 (BEAKER) (test 20 meq/L 22-29 fbpv=600) BLOOD UREA NITROGEN 17 mg/dL 7-21 (BEAKER) (test sboc=528) CREATININE (BEAKER) (test 0.68 mg/dL 0.57-1.25 dfaj=840) GLUCOSE RANDOM (BEAKER) 118 mg/dL 70-105 (test qcsm=760) CALCIUM (BEAKER) (test 7.9 mg/dL 8.4-10.2 lhau=912) EGFR (BEAKER) (test mL/min/1.73 sq m INSUFFICIENT CLINICAL DATA cwkx=2285) TO CALCULATE ESTIMATED GFR. LIPID [id number] 04:30:00 Test Item Value Reference Range Comments TRIGLYCERIDES (BEAKER) (test bpkw=268) 300 mg/dL CHOLESTEROL (BEAKER) (test zsku=073) 204 mg/dL HDL CHOLESTEROL (BEAKER) (test yeow=636) 33 mg/dL LDL CHOLESTEROL CALCULATED (BEAKER) (test 111 mg/dL mtxb=249) Triglyceride Reference Range: Low Risk <150 Borderline 150- 199 High Risk 200-499 Very High Risk >=500Cholesterol Reference Range: Low Risk <200 Borderline 200-239 High Risk > 240HDL Cholesterol Reference Range: Low Risk >=60 High Risk <40LDL Cholesterol Reference Range: Optimal <100 Near Optimal 100-129 Borderline 130-159 High 160-189 Very High >=190BLOOD GAS, [id number] 04:11:00 Test Item Value Reference Range Comments PH ARTERIAL (BEAKER) (test snoo=790) 7.42 7.35-7.45 PCO2 ARTERIAL (BEAKER) (test eluq=821) 37 mmHg 35-45 PO2 ARTERIAL (BEAKER) (test jyqf=618) 90 mmHg 80-90 O2 SATURATION ARTERIAL (BEAKER) (test lxcq=587) 97.1 % 96.0-97.0 HCO3 ARTERIAL (BEAKER) (test bxtt=770) 24 mmol/L 21-29 BASE EXCESS ARTERIAL (BEAKER) (test todh=642) -0.6 mmol/L -2.0-3.0 PATIENT TEMPERATURE (BEAKER) (test rjqk=3347) 37.0 C FIO2 (BEAKER) (test zarm=9966) 40.0 % CBC W/PLT COUNT & AUTO [id number] 04:10:00 Test Item Value Reference Range Comments WHITE BLOOD CELL COUNT (BEAKER) (test auke=179) 12.9 K/ L 3.5-10.5 RED BLOOD CELL COUNT (BEAKER) (test pkaj=284) 3.88 M/ L 3.93-5.22 HEMOGLOBIN (BEAKER) (test uoaz=463) 12.0 GM/DL 11.2-15.7 HEMATOCRIT (BEAKER) (test cdap=697) 35.8 % 34.1-44.9 MEAN CORPUSCULAR VOLUME (BEAKER) (test gbds=555) 92.3 fL 79.4-94.8 MEAN CORPUSCULAR HEMOGLOBIN (BEAKER) (test 30.9 pg 25.6-32.2 awym=056) MEAN CORPUSCULAR HEMOGLOBIN CONC (BEAKER) (test 33.5 GM/DL 32.2-35.5 ydwo=819) RED CELL DISTRIBUTION WIDTH (BEAKER) (test 13.4 % 11.7-14.4 usra=166) PLATELET COUNT (BEAKER) (test tbek=491) 203 K/CU MM 150-450 MEAN PLATELET VOLUME (BEAKER) (test qqpy=410) 12.7 fL 9.4-12.3 NUCLEATED RED BLOOD CELLS (BEAKER) (test 0 /100 WBC 0-0 wgzt=683) NEUTROPHILS RELATIVE PERCENT (BEAKER) (test 75 % nhli=868) LYMPHOCYTES RELATIVE PERCENT (BEAKER) (test 18 % nhpp=979) MONOCYTES RELATIVE PERCENT (BEAKER) (test 6 % rvxf=992) EOSINOPHILS RELATIVE PERCENT (BEAKER) (test 1 % usrq=875) BASOPHILS RELATIVE PERCENT (BEAKER) (test 0 % msjz=791) NEUTROPHILS ABSOLUTE COUNT (BEAKER) (test 9.66 K/ L 1.56-6.13 lzef=278) LYMPHOCYTES ABSOLUTE COUNT (BEAKER) (test 2.30 K/ L 1.18-3.74 opyj=278) MONOCYTES ABSOLUTE COUNT (BEAKER) (test 0.76 K/ L 0.24-0.36 ymyk=806) EOSINOPHILS ABSOLUTE COUNT (BEAKER) (test 0.10 K/ L 0.04-0.36 ehnn=876) BASOPHILS ABSOLUTE COUNT (BEAKER) (test 0.04 K/ L 0.01-0.08 ixsc=157) IMMATURE GRANULOCYTES-RELATIVE PERCENT (BEAKER) 0 % 0-1 (test wzaq=5112) BASIC METABOLIC [id number] 23:50:00 Test Item Value Reference Range Comments SODIUM (BEAKER) (test 139 meq/L 136-145 fidj=468) POTASSIUM (BEAKER) (test 3.5 meq/L 3.5-5.1 egaa=047) CHLORIDE (BEAKER) (test 106 meq/L 98-107 yvwa=963) CO2 (BEAKER) (test 22 meq/L 22-29 lnwx=888) BLOOD UREA NITROGEN 19 mg/dL 7-21 (BEAKER) (test bqml=874) CREATININE (BEAKER) (test 0.68 mg/dL 0.57-1.25 rqxn=621) GLUCOSE RANDOM (BEAKER) 114 mg/dL 70-105 (test uskx=155) CALCIUM (BEAKER) (test 8.2 mg/dL 8.4-10.2 magn=383) EGFR (BEAKER) (test mL/min/1.73 sq m INSUFFICIENT CLINICAL DATA ntts=3339) TO CALCULATE ESTIMATED GFR. HEPATIC FUNCTION [id number] 23:26:00 Test Item Value Reference Range Comments TOTAL PROTEIN (BEAKER) (test pimi=282) 6.7 gm/dL 6.0-8.3 ALBUMIN (BEAKER) (test pznz=0152) 3.3 g/dL 3.5-5.0 BILIRUBIN TOTAL (BEAKER) (test ugvn=829) 0.4 mg/dL 0.2-1.2 BILIRUBIN DIRECT (BEAKER) (test dsuy=011) 0.2 mg/dL 0.1-0.5 ALKALINE PHOSPHATASE (BEAKER) (test frne=695) 76 U/L 40-150 AST (SGOT) (BEAKER) (test isjt=339) 22 U/L 5-34 ALT (SGPT) (BEAKER) (test adwz=119) 16 U/L 6-55 CBC W/PLT COUNT & AUTO [id number] 23:25:00 Test Item Value Reference Range Comments WHITE BLOOD CELL COUNT (BEAKER) (test yink=651) 14.1 K/ L 3.5-10.5 RED BLOOD CELL COUNT (BEAKER) (test juwr=422) 4.01 M/ L 3.93-5.22 HEMOGLOBIN (BEAKER) (test vsau=665) 12.6 GM/DL 11.2-15.7 HEMATOCRIT (BEAKER) (test qcok=257) 36.7 % 34.1-44.9 MEAN CORPUSCULAR VOLUME (BEAKER) (test eyig=973) 91.5 fL 79.4-94.8 MEAN CORPUSCULAR HEMOGLOBIN (BEAKER) (test 31.4 pg 25.6-32.2 ehqe=514) MEAN CORPUSCULAR HEMOGLOBIN CONC (BEAKER) (test 34.3 GM/DL 32.2-35.5 wiqp=335) RED CELL DISTRIBUTION WIDTH (BEAKER) (test 13.2 % 11.7-14.4 mbbc=980) PLATELET COUNT (BEAKER) (test tmtj=444) 212 K/CU MM 150-450 MEAN PLATELET VOLUME (BEAKER) (test dcvc=960) 12.6 fL 9.4-12.3 NUCLEATED RED BLOOD CELLS (BEAKER) (test 0 /100 WBC 0-0 anaq=921) NEUTROPHILS RELATIVE PERCENT (BEAKER) (test 78 % ejst=420) LYMPHOCYTES RELATIVE PERCENT (BEAKER) (test 15 % aeex=771) MONOCYTES RELATIVE PERCENT (BEAKER) (test 7 % bbej=802) EOSINOPHILS RELATIVE PERCENT (BEAKER) (test 1 % kpfo=811) BASOPHILS RELATIVE PERCENT (BEAKER) (test 0 % ccvp=292) NEUTROPHILS ABSOLUTE COUNT (BEAKER) (test 10.90 K/ L 1.56-6.13 ocos=057) LYMPHOCYTES ABSOLUTE COUNT (BEAKER) (test 2.10 K/ L 1.18-3.74 cntg=015) MONOCYTES ABSOLUTE COUNT (BEAKER) (test 0.92 K/ L 0.24-0.36 jngm=937) EOSINOPHILS ABSOLUTE COUNT (BEAKER) (test 0.09 K/ L 0.04-0.36 yavn=577) BASOPHILS ABSOLUTE COUNT (BEAKER) (test 0.03 K/ L 0.01-0.08 gukj=844) IMMATURE GRANULOCYTES-RELATIVE PERCENT (BEAKER) 0 % 0-1 (test synv=5786) PROTHROMBIN [id number] 23:12:00 Test Item Value Reference Range Comments PROTIME (BEAKER) (test mgij=868) 14.2 seconds 11.7-14.7 INR (BEAKER) (test zcna=531) 1.1 <=5.9 RECOMMENDED COUMADIN/WARFARIN INR THERAPY RANGESSTANDARD DOSE: 2.0 - 3.0 Includes: PROPHYLAXIS forvenous thrombosis, systemic embolization; TREATMENT for venous thrombosis and/or pulmonary embolus.HIGH RISK: Target INR is 2.5-3.5 for patients with mechanical heart valves.POCT-GLUCOSE [id number] 21:38:00 Test Item Value Reference Range Comments POC-GLUCOSE METER (BEAKER) 94 mg/dL 70-[address] [facility] [address] (test quvn=8884) [facility] [address] KAREN, COMMON CAROTID OR INNOMINATE W EXTRACRANIAL [...] common femoral artery x1 MATERIALS EMPLOYED:1. 8 Kyr[place]z short sheath 2. 5 Kyr[place]z 125cm diagnostic catheter3. Bentson guidewire4. Terumo 0.035 LT glidewire5. Flowgate 8f Balloon Guide Catheter8. 8 [place] Angioseal device INDICATIONS:The patient is a 67-year- old female with history of hypertension, diabetes and prior stroke who presented with acute onset aphasia in her hometown of [place] around 11:00 AM. She was evaluated and transferred to [facility] for further evaluation treatment. On arrival, the [...] the puncture site was confirmed, a 8 [place]yr[place] short sheath was inserted over a Bentson wire and was maintained on heparinized saline flush throughout the remainder of the procedure. Using coaxial technique, a preflushed 5 [place]yr[place] 125cm diagnostic glide catheter on constant heparinized saline flush was placed through a pre- flushed and pre-prepped 8 [place] Flowgate balloon Guide catheter. The two catheters [...] seen. [facility] The [facility] sheath was removed and hemostasis achieved with an 8 [place] Angioseal and manual compression. The patient tolerated [...] inferiordivision origin remains. FACULTY ATTESTATION: I, Tristen Thapa M.D., was present for the entirety of the procedure. I performed or directly supervised all aspects of the procedure. I performed allcritical aspects of the case. I interpreted the images and reported the results. Signed: Tristen Thapa MDReport Verified Date/Time: 07/08/2017 18: 24:25 [facility], CTANGIO [id number] 15:00:00FINAL REPORT CLINICAL HISTORY: Stroke TECHNIQUE: Contiguous [...] FINDINGS: There is no evidence for a new [place] first order branch vessel occlusion. [...] MDReport Verified Date/Time: 2017 15:00:43 Reading Location: [address] Neuro Reading Room CT, CAROTID , [id number] 15:00:00FINAL REPORT CLINICAL HISTORY: Stroke TECHNIQUE: Contiguous [...] FINDINGS: There is no evidence for a new [place] first order branch vessel occlusion. [...] MDReport Verified Date/Time: 2017 15:00:43 Reading Location: [address] Neuro Reading Room CT, CEREBRAL PERFUSION [id number] 15:00:00FINAL REPORT CLINICAL HISTORY: Stroke TECHNIQUE: Contiguous [...] FINDINGS: There is no evidence for a new [place] first order branch vessel occlusion. [...] on a nonemergent basis. Signed: Rossi Fry Verified Date/ Time: 07/08/2017 15:00:43 Reading Location: [address] Neuro Reading Room CT, BRAIN/STROKE [id number] 14:24:00FINAL REPORT CT Head without contrast CLINICAL [...] neurologist at 2:25 PM. Signed: Rossi Fry Verified Date/Time: 07/08/2017 14:24:44 Reading Location: [address] Neuro Reading Room
--- NOTE | 2018-12-04 12:21 | RAD REPORT ---
EXAM DESCRIPTION: RAD - Chest Single View - 12/04/2018 12:14 pm CLINICAL HISTORY: Atrial fibrillation COMPARISON: November 07 TECHNIQUE: AP portable chest image was obtained 1214 hours . FINDINGS: Lung volumes are low. No peripheral mass or consolidation. Chronic interstitial pattern is accentuated by the portable technique and shallow inspiration. No focal lung parenchymal process see n and no significant edema, failure or volume overload findings. Dialysis catheter is in place. Defib rillator paddles overlie the midline and lower left chest. Heart size and vasculature are magnified b y portable technique and shallow inspiration. No measurable pleural effusion and no pneumothorax. No acute bony abnormality seen. No acute aortic findings suspected. IMPRESSION: Shallow inspiration portable imaging without acute cardiopulmonary process.
--- NOTE | 2018-12-04 12:25 | EKG ---
Test Date: 2018-12-04 Test Time: 11:55:55 Uphol[employer]ered Goods Crafter: MONICO MEASUREMENT RESULTS: Intervals: Rate: 151 SD: QRSD: 78 QT: 254 QTc: 402 [place]: P: SD: QRS: 25 T: 98 INTERPRETIVE STATEMENTS: Atrial fibrillation with rapid ventricular response ST & T wave abnormality, consider lateral ischemia or digitalis effect Abnormal ECG Compared to ECG 11/07/2018 09:07:47 ST (T wave) deviation now present Possible ischemia now present Sinus rhythm no longer present Myocardial infarct finding no longer present Electronically Signed On 12-04-18 12:24:50 CDT by Andrade Titus
[2018-12-04 12:39] LABS: Absolute Lymphocytes (CBC) 1.2 K/uL (0.7-4.9); Basophils % 0.3 % (0-1.3); Hematocrit 31.4 % (36.0-45.0); Lymphocytes % 11.4 % (15.3-44.8); RBC Red Blood Cell Count 3.25 M/uL (3.86-4.86)
[2018-12-04 12:55] LABS: Albumin 2.1 g/dL (3.4-5.0); Bilirubin Direct 0.1 mg/dL (0-0.2); Bilirubin Total 0.3 mg/dL (0.2-1.0); Magnesium 2.6 mg/dL (1.8-2.4); Potassium 4.1 mmol/L (3.5-5.1); Protein, Total 7.7 g/dL (6.4-8.2)
[2018-12-04 13:07] LABS: Troponin (Emerg Dept Use Only) 0.63 ng/mL (0.0-0.045)
--- NOTE | 2018-12-04 13:16 | ER ---
Nurse's Notes [facility] Name: Apoorva Christie Age: 68 yrs Sex: Female : 1950 Arrival Date: 12/04/2018 Time: 11:54 Bed 4 Private MD: Diagnosis: Atrial fibrillation and flutter Presentation: 12/04 11:52 Presenting complaint: EMS states: called out by HD center for rapid HR, HD was not sv done. On EMS arrival BP 110/80 [id number]. Transition of care: HD. Onset of symptoms was December 04, 2018. Risk Assessment: Do you want to hurt yourself or someone else? Patient reports no desire to harm self or others. Initial Sepsis Screen: Does the patient meet any 2 criteria? HR > 90 bpm. Yes Does the patient have a suspected source of infection? No. Patient's initial sepsis screen is negative. Care prior to arrival: Glucose check: 214. 11:52 Method Of Arrival: EMS: [facility] sv 11:58 Acuity: AWA 1 sv 12:04 Note Pt is from [facility] sv Triage Assessment: 11:52 General: Appears uncomfortable, Behavior is cooperative, fussy. Pain: Denies pain. sv Neuro: Level of Consciousness is obeys commands, lethargic, Moves all extremities. Cardiovascular: Rhythm is atrial fibrillation with rapid ventricular response. Respiratory: Airway is patent Respiratory effort is even, unlabored, Respiratory pattern is regular, symmetrical. Derm: Skin is pale. Historical: - Allergies: 12:23 codeine sulfate; ss - Home Meds: 12:23 acetaminophen 325 mg Oral tab 2 tabs every 6 hours for Fever, Pain [Active]; lorazepam ss 1 mg Oral tab 1 tab every 8 hours [Active]; ascorbic acid (vitamin C) 600 mg TbER twice a day [Active]; Miralax 17 gram Oral pwpk 1 packet once daily [Active]; aspirin 81 mg Oral TbEC 1 tab once daily [Active]; nifedipine 30 mg Oral TbER 1 tab once daily [Active]; atorvastatin 20 mg Oral tab 1 tab nightly [Active]; carvedilol 12.5 mg Oral tab every 12 hours [Active]; Velphoro 500 mg oral chew 2 tabs With each meal [Active]; clonidine HCl 0.1 mg Oral tab 1 tab 3 times per day [Active]; Depakote ER 500 mg Oral Tb24 1 tab twice a day [Active]; multivitamin oral tab daily [Active]; ferrous sulfate 325 mg (65 mg iron) Oral TbEC twice a day [Active]; Humalog 3 units SQ before meals [Active]; clopidogrel 75 mg Oral tab 1 tab once daily [Active]; hydralazine 25 mg Oral tab 2 tab three times a day [Active]; senna 8.6 mg oral tab 2 tabs once daily [Active]; Lantus 100 unit/mL Sub-Q soln 35 unit twice a day [Active]; terazosin 2 mg oral cap 2 caps nightly [Active]; - PMHx: 12:23 Diabetes - IDDM; ESRD; CVA; Anxiety; Anemia; Hypertension; Pressure ulcer L ankle and ss foot; Hyperparathyroidism; Dialyisis ; progressive tremors; - Immunization history:: Adult Immunizations Adult Immunizations. - Social history:: Smoking status: . - Ebola Screening: : Patient denies travel to an Ebola-affected area in the 21 days before illness onset. Screenin:08 Abuse screen: Denies threats or abuse. Denies injuries from another. Nutritional sv screening: No deficits noted. Tuberculosis screening: No symptoms or risk factors identified. Fall Risk None identified. Assessment: 12:09 Reassessment: Patient appears in no apparent distress at this time. No changes from sv previously documented assessment. Patient and/or family updated on plan of care and expected duration. Pain level reassessed. 12:16 Reassessment: Called [facility] and spoke with nurse, stated vitals were BP sv 91/70 HR-91. Wounds to left ankle and sacrum Stage 2 is on contact precautions for staph but finished abx 2 days ago. 13:20 Reassessment: Patient appears in no apparent distress at this time. No changes from sv previously documented assessment. Patient and/or family updated on plan of care and expected duration. Pain level reassessed. 14:09 Reassessment: Patient appears in no apparent distress at this time. No changes from sv previously documented assessment. Patient and/or family updated on plan of care and expected duration. Pain level reassessed. 15:30 Reassessment: Patient appears in no apparent distress at this time. No changes from sv previously documented assessment. Patient and/or family updated on plan of care and expected duration. Pain level reassessed. Vital Signs: 11:57 BP 131 / 99; Pulse 137; Resp 20; Pulse Ox 100% ; sv 11:59 BP 115 / 74; Pulse 143; Resp 18; Pulse Ox 100% on R/A; sv 12:00 BP 136 / 70; Pulse 142; Resp 19; Pulse Ox 100% on R/A; sv 12:06 BP 136 / 70; Pulse 138; Resp 21; Pulse Ox 100% on R/A; tw2 12:08 BP 109 / 74; Pulse 144; Resp 26; Pulse Ox 100% ; sv 12:14 BP 107 / 65; Pulse 127; Resp 20; Pulse Ox 99% on R/A; tw2 12:19 BP 98 / 67; Pulse 136; Resp 19; Pulse Ox 100% ; sv 12:45 BP 117 / 90; Pulse 121; Resp 23; Pulse Ox 100% on R/A; sv 13:24 BP 125 / 98; Pulse 123; Resp 20; Pulse Ox 100% on R/A; sv 14:00 BP 120 / 75; Pulse 128; Resp 20; Pulse Ox 100% on R/A; sv 15:07 BP 110 / 98; Pulse 128; Resp 33; Pulse Ox 100% on R/A; sv ED Course: 11:54 Patient arrived in ED. sv 11:55 Initial lab(s) drawn, by ED staff, sent to lab. Inserted saline lock: 22 gauge in right sv hand, using aseptic technique. ,using aseptic technique. diffusics, done by Laura DAVISON Blood collected. 11:55 nuclear monitoring technician on. Pulse ox on. NIBP on. sv 11:58 Triage completed. sv 11:59 Barb Dempsey, RN is Primary Nurse. sv 11:59 EKG done, by technical operations manager. reviewed by Vicente Pollock MD. sm3 12:00 Patient has correct armband on for positive identification. Bed in low position. Call sv light in reach. Side rails up X2. 12:02 Vicente Pollock MD is Attending Physician. kdr 12:04 Arm band placed on. sv 12:09 Basic Metabolic Panel Sent. sv 12:09 CBC with Diff Sent. sv 12:09 LFT's Sent. sv 12:09 Troponin (emerg Dept Use Only) Sent. sv 12:09 X-ray(s) taken. sv 12:12 X-ray completed. Portable x-ray completed in exam room. Patient tolerated procedure ml well. 12:12 XRAY Chest (1 view) In Process Unspecified. EDMS 12:29 Lab(s) recollected, by me, sent to lab. Inserted saline lock: 20 gauge in right sv forearm, using aseptic technique. Blood collected. 13:15 Chapin Arias MD is Hospitalizing Provider. kdr 13:24 Awaiting bed assignment. sv 14:38 Awaiting bed assignment. sv 15:32 No provider procedures requiring assistance completed. Patient admitted, IV remains in sv place. intact. Administered Medications: 12:00 Drug: Lopressor 5 mg Route: IVP; Site: right hand; sv 12:14 Follow up: Response: No change in condition tw2 12:05 Drug: Lopressor 5 mg Route: IVP; Site: right hand; tw2 12:10 Drug: Lopressor 5 mg Route: IVP; Site: right hand; tw2 12:14 Follow up: BP 107 / 65; Pulse 127 bpm; Resp 20 bpm; Pulse Ox 99% RA tw2 Outcome: 13:15 Decision to Hospitalize by Provider. kdr 15:32 Admitted to Tele accompanied by tech, via stretcher, room 206, with chart, Report sv called to Lacie DAVISON 15:32 Condition: stable 15:32 Instructed on the need for admit. 15:33 Patient left the ED. sv Signatures: Dispatcher [employer] EDMS Barb Dempsey RN RN Vicente Pollock MD MD kdr Lopez, Melissa ml Smirch, Shelby, RN RN Laura Wisdom RN RN tw2 Karoline Walker 3 Corrections: (The following items were deleted from the chart) 12:15 12:04 Note Pt is from [facility] sv 12:21 12:16 Reassessment: Called [facility] and spoke with nurse, stated vitals were sv BP 91/70 HR-91. Wounds to left ankle and sacrum Stage 2 is on contact precautions. sv
--- NOTE | 2018-12-04 13:16 | EDPHYS ---
Physician Documentation [facility] Name: Apoorva Christie Age: 68 yrs Sex: Female : 1950 Arrival Date: 12/04/2018 Time: 11:54 Bed 4 Private MD: ED Physician Vicente Pollock HPI: 12/04 12:10 This 68 yrs old Female presents to ER via EMS with complaints of Afib w/RVR. kdr 12:10 This 68 yrs old Female presents to ER via EMS with complaints of Afib w/RVR. kdr 12:10 The patient presents with a history of heart racing. Context: The symptoms occur at kdr rest. Onset: The symptoms/episode began/occurred this morning. Duration: The patient or guardian reports a single episode, that is still ongoing, and unchanged. Modifying factors: The symptoms are aggravated by nothing. The symptoms are alleviated by nothing. Associated signs and symptoms: The patient has no apparent associated signs or symptoms. Severity of symptoms: At their worst the symptoms were moderate in the emergency department the symptoms are unchanged. It is unknown whether or not the patient has had similar symptoms in the past. The patient has not recently seen a physician. The patient was taken to dialysis this morning and when she arrived, they noted her HR was elevated (120 - 140).. Historical: - Allergies: 12:23 codeine sulfate; ss - Home Meds: 12:23 acetaminophen 325 mg Oral tab 2 tabs every 6 hours for Fever, Pain [Active]; lorazepam ss 1 mg Oral tab 1 tab every 8 hours [Active]; ascorbic acid (vitamin C) 600 mg TbER twice a day [Active]; Miralax 17 gram Oral pwpk 1 packet once daily [Active]; aspirin 81 mg Oral TbEC 1 tab once daily [Active]; nifedipine 30 mg Oral TbER 1 tab once daily [Active]; atorvastatin 20 mg Oral tab 1 tab nightly [Active]; carvedilol 12.5 mg Oral tab every 12 hours [Active]; Velphoro 500 mg oral chew 2 tabs With each meal [Active]; clonidine HCl 0.1 mg Oral tab 1 tab 3 times per day [Active]; Depakote ER 500 mg Oral Tb24 1 tab twice a day [Active]; multivitamin oral tab daily [Active]; ferrous sulfate 325 mg (65 mg iron) Oral TbEC twice a day [Active]; Humalog 3 units SQ before meals [Active]; clopidogrel 75 mg Oral tab 1 tab once daily [Active]; hydralazine 25 mg Oral tab 2 tab three times a day [Active]; senna 8.6 mg oral tab 2 tabs once daily [Active]; Lantus 100 unit/mL Sub-Q soln 35 unit twice a day [Active]; terazosin 2 mg oral cap 2 caps nightly [Active]; - PMHx: 12:23 Diabetes - IDDM; ESRD; CVA; Anxiety; Anemia; Hypertension; Pressure ulcer L ankle and ss foot; Hyperparathyroidism; Dialyisis ; progressive tremors; - Immunization history:: Adult Immunizations Adult Immunizations. - Social history:: Smoking status: . - Ebola Screening: : Patient denies travel to an Ebola-affected area in the 21 days before illness onset. ROS: 12:52 Constitutional: The patient is a poor historian and is not cooperative with questions kdr 12:52 Unable to obtain ROS due to patient being uncooperative. Exam: 12:52 Constitutional: This is a well developed, well nourished patient who is somnolent and kdr in mild distress. Head/Face: Normocephalic, atraumatic. Eyes: Pupils equal round and reactive to light, extra-ocular motions intact. Lids and lashes normal. Conjunctiva and sclera are non-icteric and not injected. Cornea within normal limits. Periorbital areas with no swelling, redness, or edema. Neck: Trachea midline, no thyromegaly or masses palpated, and no cervical lymphadenopathy. Supple, full range of motion without nuchal rigidity, or vertebral point tenderness. No Meningismus. Chest/axilla: Normal chest wall appearance and motion. Nontender with no deformity. No lesions are appreciated. Respiratory: Lungs have equal breath sounds bilaterally, clear to auscultation and percussion. No rales, rhonchi or wheezes noted. No increased work of breathing, no retractions or nasal flaring. Abdomen/GI: Soft, non-tender, with normal bowel sounds. No distension or tympany. No guarding or rebound. No evidence of tenderness throughout. Back: No spinal tenderness. No costovertebral tenderness. Full range of motion. Skin: Warm, dry with normal turgor. Normal color with no rashes, no lesions, and no evidence of cellulitis. 12:52 Cardiovascular: Rate: tachycardic, actual rate is 140 bpm, Rhythm: irregularly irregular, Pulses: no pulse deficits are appreciated, Heart sounds: normal. 12:52 Respiratory: the patient does not display signs of respiratory distress, Respirations: normal, Breath sounds: rales, that are mild, are scattered, are located in both bases, are heard diffusely. 12:52 Neuro: Responds slowly to questions, she is bed bound with wounds on her feet. SHe is kdr on contact precautions. Vital Signs: 11:57 BP 131 / 99; Pulse 137; Resp 20; Pulse Ox 100% ; sv 11:59 BP 115 / 74; Pulse 143; Resp 18; Pulse Ox 100% on R/A; sv 12:00 BP 136 / 70; Pulse 142; Resp 19; Pulse Ox 100% on R/A; sv 12:06 BP 136 / 70; Pulse 138; Resp 21; Pulse Ox 100% on R/A; tw2 12:08 BP 109 / 74; Pulse 144; Resp 26; Pulse Ox 100% ; sv 12:14 BP 107 / 65; Pulse 127; Resp 20; Pulse Ox 99% on R/A; tw2 12:19 BP 98 / 67; Pulse 136; Resp 19; Pulse Ox 100% ; sv 12:45 BP 117 / 90; Pulse 121; Resp 23; Pulse Ox 100% on R/A; sv 13:24 BP 125 / 98; Pulse 123; Resp 20; Pulse Ox 100% on R/A; sv 14:00 BP 120 / 75; Pulse 128; Resp 20; Pulse Ox 100% on R/A; sv 15:07 BP 110 / 98; Pulse 128; Resp 33; Pulse Ox 100% on R/A; sv MDM: 12:52 Data reviewed: vital signs, nurses notes, lab test result(s), EKG, radiologic studies. kdr Counseling: I had a detailed discussion with the patient and/or guardian regarding: the historical points, exam findings, and any diagnostic results supporting the discharge/admit diagnosis, lab results, radiology results. 13:15 Patient medically screened. kdr 12/04 11:59 Order name: Basic Metabolic Panel sv 12/04 11:59 Order name: CBC with Diff sv 08/06 11:59 Order name: LFT's sv 12/04 11:59 Order name: Magnesium; Complete Time: 13:11 sv 12/04 11:59 Order name: NT PRO-BNP; Complete Time: 13:11 sv 12/04 11:59 Order name: PT-INR; Complete Time: 12:19 sv 12/04 11:59 Order name: Troponin (emerg Dept Use Only) sv 12/04 12:43 Order name: CBC with Automated Diff; Complete Time: 12:41 EDMS 12/04 13:07 Order name: Basic Metabolic Panel; Complete Time: 13:11 EDMS 12/04 13:07 Order name: Liver (Hepatic) Function; Complete Time: 13:11 EDMS 12/04 13:07 Order name: Troponin (Emerg Dept Use Only); Complete Time: 13:11 EDMS 12/04 15:03 Order name: Basic Metabolic Panel EDMS 12/04 15:03 Order name: Basic Metabolic Panel EDMS 12/04 15:03 Order name: Troponin I EDMS 12/04 11:59 Order name: XRAY Chest (1 view); Complete Time: 12:41 sv 12/04 11:59 Order name: EKG; Complete Time: 12:02 sv 12/04 11:59 Order name: Cardiac monitoring; Complete Time: 12:00 sv 12/04 11:59 Order name: EKG - Nurse/Tech; Complete Time: 12:00 sv 12/04 11:59 Order name: IV Saline Lock; Complete Time: 12:00 sv 12/04 11:59 Order name: Labs collected and sent; Complete Time: 12:00 sv 12/04 11:59 Order name: O2 Per Protocol; Complete Time: 12:00 sv 12/04 15:03 Order name: Consistent Carb (ADA) 2000 Rob EDMS 12/04 15:03 Order name: Troponin I EDMS 12/04 15:03 Order name: Troponin I EDMS 12/04 15:04 Order name: EKG Electrocardiogram EDMS 12/04 15:04 Order name: EKG Electrocardiogram EDMS 12/04 15:04 Order name: EKG Electrocardiogram EDMS 12/04 15:04 Order name: EKG Electrocardiogram EDMS 12/04 11:59 Order name: O2 Sat Monitoring; Complete Time: 12:00 sv Administered Medications: 12:00 Drug: Lopressor 5 mg Route: IVP; Site: right hand; sv 12:14 Follow up: Response: No change in condition tw2 12:05 Drug: Lopressor 5 mg Route: IVP; Site: right hand; tw2 12:10 Drug: Lopressor 5 mg Route: IVP; Site: right hand; tw2 12:14 Follow up: BP 107 / 65; Pulse 127 bpm; Resp 20 bpm; Pulse Ox 99% RA tw2 Disposition: 12/04/18 13:15 Hospitalization ordered by Chapin Arias for Observation. Preliminary diagnosis is Atrial fibrillation and flutter. - Bed requested for Telemetry/MedSurg (observation). - Status is Observation. sv - Condition is Fair. - Problem is new. - Symptoms have improved. UTI on Admission? No Signatures: Dispatcher [employer] EDMS Etta Reveles Stephanie, RN RN Vicente Jernigan MD MD kdr Kathy Simpson RN RN ss Laura Wisdom RN RN tw2 Corrections: (The following items were deleted from the chart) 15:07 13:15 Hospitalization Ordered by Chapin Arias MD for Observation. Preliminary diagnosis bd is Atrial fibrillation and flutter. Bed requested for Telemetry/MedSurg (observation). Status is Observation. Condition is Fair. Problem is new. Symptoms have improved. UTI on Admission? No. kdr 15:33 15:07 12/04/2018 13:15 Hospitalization Ordered by Chapin Airas MD for Observation. sv Preliminary diagnosis is Atrial fibrillation and flutter. Bed requested for Telemetry/MedSurg (observation). Status is Observation. Condition is Fair. Problem is new. Symptoms have improved. UTI on Admission? No. bd
[2018-12-04] MEDS ORDERED: ACETAMINOPHEN 500 MG TAB PO PRN (14:59)
[2018-12-04] MEDS ORDERED: ONDANSETRON 4 MG/2 ML VIAL IV PRN (14:59)
[2018-12-04] MEDS ORDERED: D50W 25 GM/50 ML SYRINGE IV PRN (18:07)
[2018-12-04] MEDS ORDERED: GLUCAGON 1 MG/VIAL IM PRN (18:07)
[2018-12-04] MEDS: METOPROLOL TAR 25 MG TAB PO SCH (18:17)
[2018-12-04] MEDS: HYDRALAZINE HCL 25 MG TABLET PO SCH (18:52)
[2018-12-04] MEDS ORDERED: cloNIDine HCl 0.1 MG TAB PO PRN (19:00)
[2018-12-04] MEDS: ASCORBIC ACID 500 MG TABLET PO SCH (20:35)
[2018-12-04] MEDS: FERROUS SULFATE 325 MG TAB PO SCH (20:36)
[2018-12-04] MEDS: DIVALPROEX DR 500MG TAB PO SCH (20:36)
[2018-12-04] MEDS: INSULIN -REGULAR HUMAN 50 UNIT/0.5 ML ML SQ SCH (21:00)
[2018-12-04] MEDS ORDERED: TERAZOSIN HCL 4 MG PO SCH (21:00)
[2018-12-04] MEDS: TERAZOSIN HCL 1 MG CAP PO SCH (21:00)
[2018-12-05] MEDS ORDERED: HOME MED 1 EA UNK (Hydralazine Hcl [Apresoline] 50 MG) PO SCH (01:00)
[2018-12-05] MEDS: HYDRALAZINE HCL 25 MG TABLET PO SCH ×3 (02:49→16:37)
[2018-12-05] MEDS: METOPROLOL TAR 25 MG TAB PO SCH ×2 (05:34→17:30)
--- NOTE | 2018-12-05 07:06 | EKG ---
Test Date: 2018-12-04 Test Time: 21:03:08 Radio Operator: RT Mitchell MEASUREMENT RESULTS: Intervals: Rate: 74 DE: 152 QRSD: 78 QT: 384 QTc: 426 Rincon: P: 40 DE: 152 QRS: 4 T: 101 INTERPRETIVE STATEMENTS: Normal sinus rhythm Inferior infarct, age undetermined Abnormal ECG Compared to ECG 12/04/2018 11:55:55 Myocardial infarct finding now present Atrial fibrillation no longer present ST (T wave) deviation no longer present Possible ischemia no longer present Electronically Signed On 12-05-18 07:06:06 CDT by Tod Benjamin
[2018-12-05] MEDS: INSULIN -REGULAR HUMAN 50 UNIT/0.5 ML ML SQ SCH ×4 (07:30→21:00)
[2018-12-05] MEDS: SUCROFERRIC OXYHYDROXIDE 1000 MG PO SCH ×3 (08:00→16:45)
[2018-12-05] MEDS ORDERED: NIFEDIPINE 30 MG PO SCH (09:00)
[2018-12-05] MEDS ORDERED: ENOXAPARIN 100 MG/ML SYR SQ SCH (09:00)
[2018-12-05] MEDS: POLYETHYL GLY 3350 17 GM/DOSE PO SCH (09:00)
[2018-12-05] MEDS ORDERED: ASPIRIN EC 81 MG TAB PO SCH (09:00)
[2018-12-05] MEDS ORDERED: POLYETHYLENE GLYCOL 17 GM PO SCH (09:00)
[2018-12-05] MEDS: CLOPIDOGREL 75 MG TABLET PO SCH (09:00)
[2018-12-05] MEDS: ASPIRIN 81 MG CHEWABLE TABLET PO SCH (09:00)
--- NOTE | 2018-12-05 09:39 | CON ---
History Of Present Illness: Mrs. Christie came to the hospital, not sure what the complaint was. I think the nurses noticed something was wrong, took her vital signs and noticed she had a rapid heart rate. She was found to be in atrial fibrillation, received a single dose of metoprolol, and is in sinus rhythm. She is a hemodialysis patient. She had multiple strokes. She has had bilateral SFA occlusions, treated with stents. Not sure if the stents are still patent. She still has wounds that fail to heal, was concerned that the SFA stents have probably reoccluded at this point. She was not having chest pain, was not complaining of anything in particular and she was in atrial fibrillation for several hours. Her troponins are elevated. The troponin is 4.6. She is a regular hemodialysis patient. Creatinine is 3.0. N-terminal proBNP likewise is elevated. Physical Examination: General: She is lethargic but not obtunded. She would not answer questions, but she would answer questions from her sister. I think she has some paranoid ideation. She was looking at me with fear in her eyes and would only answer her sister. She would not answer any of my questions. Lungs: Do not reveal crackles. Heart: Regular rate and rhythm. Her EKG shows an old inferior infarct. No ST or T-wave abnormality of any concern. She is also said to have cirrhosis, it must be mild. Her clotting studies are normal and her liver function tests and bilirubin are normal. Transaminases are normal, so must be a very mild case of cirrhosis. Impression: The patient had transient atrial fibrillation. I think the troponins being elevated probably indicate severe CAD. I would recommend an echo and a pharmacologic nuclear stress test just to see what her prognosis might be. She would be a very poor candidate to undergo another cardiac cath. If a cardiac catheterization is to be done I would insist that consent be given by family members. The patient seems unable to understand things that are said to her or provide actual informed consent. MICHAEL Voice ID: [id number] Report ID: [id number] SERGIO
[2018-12-05] MEDS: NIFEDIPINE XL 30 MG TABLET PO SCH (09:43)
[2018-12-05] MEDS: FERROUS SULFATE 325 MG TAB PO SCH ×2 (09:44→21:20)
[2018-12-05] MEDS: ASCORBIC ACID 500 MG TABLET PO SCH ×2 (09:44→21:20)
[2018-12-05] MEDS: DIVALPROEX DR 500MG TAB PO SCH ×2 (09:44→21:20)
[2018-12-05] MEDS: NYSTATIN PWDR 100000 UNIT/GM TOP SCH (09:45)
[2018-12-05] MEDS: ATORVASTATIN 20 MG TAB PO SCH (09:46)
[2018-12-05 10:18] LABS: Absolute Lymphocytes (CBC) 1.3 K/uL (0.7-4.9); Basophils % 0.4 % (0-1.3); Hematocrit 27.5 % (36.0-45.0); Lymphocytes % 14.6 % (15.3-44.8); RBC Red Blood Cell Count 2.88 M/uL (3.86-4.86)
[2018-12-05 10:28] LABS: Protime INR 0.95
[2018-12-05 11:03] LABS: Platelet Estimate ADEQ
[2018-12-05] MEDS: HEPARIN/D5W 25,000 UNIT/500 ML BAG IV SCH (11:14)
[2018-12-05] MEDS ORDERED: REGADENOSON 0.4 MG/5 ML SYR IV ONE (11:54)
[2018-12-05] MEDS ORDERED: HEPARIN 5000 UNIT/ML 1 ML VIAL IV ONE ×2 (12:00→17:00)
--- NOTE | 2018-12-05 15:10 | RAD REPORT ---
EXAM DESCRIPTION: NM - Rest Stress Cardiac Imaging - 12/05/2018 2:46 pm CLINICAL HISTORY: Chest pain COMPARISON: None. TECHNIQUE: The patient was administered 10.3 mCi of Tc 99m Sestamibi prior to resting SPECT imaging of the heart. The patient was then administered approximately 30 mCi of Tc 99m Sestamibi following ex ercise or pharmacologic stress. Multiplanar SPECT images were reviewed. FINDINGS: Exam is nondiagnostic. On both stress and rest imaging there was far too much motion by th e patient. Degree of motion exceeded the software motion correction abilities. IMPRESSION: Nondiagnostic study due to excessive motion.
--- NOTE | 2018-12-05 16:45 | CON ---
Date of Consultation: 12/05/2018 Reason For Consultation: Elevated BUN and creatinine, electrolyte imbalance. History Of Present Illness: This is a pleasant 68-year-old female, well known to me from the [facility] with significant past medical history of diabetes complicated with neuropathy, nephropathy, and ret inopathy, seizure, CVA, cirrhosis, end-stage renal disease, on hemodialysis, TTS at [facility] dialysis Unit, last dialysis was Monday. The patient was in her regular state of health, went to [facility], found to have AFib with RVR. For that reason, sent to the hospital. The patient was comple tely asymptomatic except of the palpitation. The patient approached to the hospital. Over the night , her heart rate converted spontaneously to sinus, but her lab shows elevated BUN and creatinine and elevated troponin. Cardiology being on board. Plan for a stress test. The patient denied any chest pain, any nausea, any vomiting. Past Medical History: Include; 1.Diabetes. 2.Hypertension. 3.Hyperlipidemia. 4.End-stage renal disease. 5.Cerebrovascular accident. 6.Seizure. Allergies: NO KNOWN DRUGS ALLERGY. Social History: Denies smoking, denies drinking, denies drug abuse. Family History: Positive for coronary artery disease, diabetes and hypertension. Review of Systems: Head and Neck: No red eye, no ear pain. GI: No nausea, no vomiting. : No polyuria, no dysuria, no hematuria. BAND BOOKER: No vaginal discharge. Respiratory: No shortness of breath. Cardiovascular: Palpitation. Endocrine: No polydipsia. Skin: No rash. Neuro: Decreased vision. Musculoskeletal: No joint pain. Home Medications: Include , nifedipine, lorazepam, insulin, hydralazine 50 t.i.d., Plavix, clonidine, atorvastatin, and aspirin. Current medications in the hospital include aspirin, vitamin C, Plavix, Epogen, hydralazine 50 t.i.d. , metoprolol, nystatin, and nifedipine. Physical Examination: Vital Signs: When I saw the patient, blood pressure of 137/77, pulse of 68, afebrile. Chest: Clear to auscultation. Heart: S1, S2. Regular. Abdomen: Soft and nontender. Extremities: Trace edema. Laboratory Data: WBC 9.1, H and H 8.9/27.5, platelets 264. Sodium of 139, potassium 4.1, bicarb 30, BUN 52, creatinine 3, calcium 8.9, magnesium 2.7. Assessment And Plan: 1.End-stage renal disease with electrolyte imbalance. I am going to dialyze the patient on low bloo d flow given the cardiac insult and we will dialyze on 2 potassium bath and we will follow up. 2.Over volume. We will challenge the patient. 3.Anemia of chronic kidney disease. Continue HEATHER. 4.Secondary hyperparathyroid. Continue binder. 5.Atrial fibrillation with unstable angina, follow up with Cardiology. 6.Diabetes by primary. TRISHA/TASHA Voice ID: [id number] Report ID: [id number]
--- NOTE | 2018-12-05 17:32 | ECHO ---
HEIGHT: 5 ft 5 in WEIGHT: 176 lb 6.4 oz DATE OF STUDY: 12/05/[address]: Chapin Arias MD 2-DIMENSIONAL: YES M.MODE: YES DOPPLER: YES COLOR FLOW: YES TDS: PORTABLE: DEFINITY: BUBBLE STUDY: DIAGNOSIS: ATRIAL FIBRILLATION CARDIAC HISTORY: CATHERIZATION: NO SURGERY: NO PROSTHETIC VALVE: NO PACEMAKER: NO MEASUREMENTS (cm) DIASTOLIC (NORMALS) SYSTOLIC (NORMALS) IVSd 1.2 (0.6-1.2) LA Diam 4.0 (1.9-4.0) LVEF 68% LVIDd 3.5 (3.5-5.7) LVIDs 2.2 (2.0-3.5) %FS 37% LVPWd 1.2 (0.6-1.2) Ao Diam 2.7 (2.0-3.7) 2 DIMENSIONAL ASSESSMENT: RIGHT ATRIUM: NORMAL LEFT ATRIUM: DILATED RIGHT VENTRICLE: NORMAL LEFT VENTRICLE: LEFT VENTRICULAR HYPERTROPHY TRICUSPID VALVE: NORMAL MITRAL VALVE: MITRAL ANNULAR CALCIFICATION PULMONIC VALVE: NORMAL AORTIC VALVE: SCLEROSIS PERICARDIAL EFFUSION: NONE AORTIC ROOT: NORMAL LEFT VENTRICULAR WALL MOTION: NORMAL DOPPLER/COLOR FLOW: MILD TRICUSPID REGURGITATION. NORMAL RIGHT VENTRICULAR SYSTOLIC PRESSURE. NO AORTIC STENOSIS OR AORITC REGURGITATION. COMMENTS: TECHNOLOGIST: EMELY DEL TORO
[2018-12-05] MEDS: EPOETIN ALFA 10,000 UNIT/ML VIAL IV SCH (18:21)
[2018-12-05] MEDS: TERAZOSIN HCL 1 MG CAP PO SCH (21:19)
[2018-12-06] MEDS: HYDRALAZINE HCL 25 MG TABLET PO SCH ×3 (01:13→17:38)
[2018-12-06 02:29] LABS: Albumin 1.9 g/dL (3.4-5.0); Phosphorus 1.6 mg/dL (2.5-4.9); Potassium 3.7 mmol/L (3.5-5.1)
[2018-12-06] MEDS ORDERED: HEPARIN 5000 UNIT/ML 1 ML VIAL IV ONE (02:49)
--- NOTE | 2018-12-06 03:17 | HP ---
Date of Admission: 12/04/2018 Chief Complaint: Atrial fibrillation with rapid ventricular response, myocardial infarction. History Of Present Illness: A 68-year-old female was brought to the emergency room because of increa sed heart rate. Evaluation was done. She was found to have atrial fibrillation with rapid ventricul ar response. In addition, patient also had elevation of troponin compatible with the myocardial inju ry. Patient is admitted. Patient cannot give any meaningful history on account of her mental status . Patient is known to have multiple medical problems, which will be listed in the past medical histo ry. Past Medical History: Positive for chronic renal failure, on dialysis; type 2 diabetes, requiring in sulin; history of hypertension. Patient has pressure ulcer and infection of the leg in the past. Ot her problems include history of old CVA, anxiety, anemia. Family History: Diabetes, hypertension present. Personal History: Nonsmoker currently. Allergies: CODEINE. Review of Systems: Patient denied any nausea, vomiting, or dizziness. Physical Examination: General: Revealed a 68-year-old female, bedridden. HEENT: Negative. Neck: Supple. JVD negative. Chest: Clear. Heart: Irregularity rapid heart rate noted. Abdomen: Soft. Extremities: No edema. Laboratory Data: White count normal. Chest x-ray no pneumonia. EKG, atrial fibrillation with rapid ventricular response. Troponin elevated to 2.6 and over 4 today. Assessment: 1.Atrial fibrillation with rapid ventricular response. 2.Myocardial infarction. 3.Hypertension. 4.Type 2 diabetes, requiring insulin. 5.End-stage renal disease, on dialysis. 6.History of old cerebrovascular accident. 7.Chronic anemia related to renal failure. Plan: Patient is start on a diet and insulin coverage and her regular medications. She is receiving Lopressor for her heart rate control. Cardiology consult. Nephrology consult has been made. BENNETT/TASHA Voice ID: [id number]
[2018-12-06] MEDS: METOPROLOL TAR 25 MG TAB PO SCH ×2 (06:19→17:38)
--- NOTE | 2018-12-06 07:40 | TREADPHA ---
DX: CHEST PAIN Date of Study: 12/05/18 Ht: 5 5 Wt: 171 lb 9.6 oz Consulting Physician: KATYA MEDICATIONS: ASPIRIN, LIPITOR, CATAPRES, PLAVIX, DEXTROSE, DEPAKOTE, FEOSOL, GLUCAGEN, APRESOLINE, NOVOLIN-R, LOPRESSOR, PROCARDIA XL, MYCOSTATIN, GLYCOLAX, HYTRIN. HISTORY: 68 YEAR OLD FEMALE WITH COMPLAINTS OF CHEST PAIN. INSULINE DEPENDENT DIABETES MELLITIS, END STAGE RENAL DISEASE, CEREBRAL VASCULAR ACCIDENT, ANXIETY, ANEMIA, HYPERTENSION, PRESSURE ULCER, DIALYSIS , , , PROGRESSIVE TREMURS. PHYSICIAL EXAMINATION: RESTING B.P.: 144/69 RESTING H.R.: 70 RESTING EKG: NORMAL. PROTOCOL: LEXISCAN EXERCISE TIME: 3:30 B.P. AT PEAK STRESS: 114/42 IMPRESSION: LEXISCAN INJECTED, FOLLOWED BY CARDIOLITE PER PROTOCOL, SEE NUCLEAR MEDICINE REPORT. NO SUPRA VENTRICULAR TACHYCARDIA, VENTRICULAR TACHYCARDIA, PREMATURE ATRIAL COMPLEXES AND PREMATURE VENTRICULAR COMPLEXES. NO CHEST PAIN REPORTED. NON DIAGNOSTIC EKG WITH LEXISCAN STRESS.
[2018-12-06] MEDS: SUCROFERRIC OXYHYDROXIDE 1000 MG PO SCH ×3 (08:00→16:17)
[2018-12-06] MEDS ORDERED: HEPARIN 5000 UNIT/ML 1 ML VIAL IV SCH ×2 (09:00→16:00)
[2018-12-06] MEDS: INSULIN -REGULAR HUMAN 50 UNIT/0.5 ML ML SQ SCH ×4 (09:17→22:55)
[2018-12-06] MEDS: CLOPIDOGREL 75 MG TABLET PO SCH (09:18)
[2018-12-06] MEDS: POLYETHYL GLY 3350 17 GM/DOSE PO SCH (09:18)
[2018-12-06] MEDS: ASPIRIN 81 MG CHEWABLE TABLET PO SCH (09:19)
[2018-12-06] MEDS: DIVALPROEX DR 500MG TAB PO SCH ×2 (09:19→21:18)
[2018-12-06] MEDS: NIFEDIPINE XL 30 MG TABLET PO SCH (09:19)
[2018-12-06] MEDS: FERROUS SULFATE 325 MG TAB PO SCH ×2 (09:19→21:18)
[2018-12-06] MEDS: ASCORBIC ACID 500 MG TABLET PO SCH ×2 (09:19→21:18)
[2018-12-06] MEDS: NYSTATIN PWDR 100000 UNIT/GM TOP SCH (09:21)
[2018-12-06] MEDS: ATORVASTATIN 20 MG TAB PO SCH (09:21)
[2018-12-06] MEDS: HEPARIN/D5W 25,000 UNIT/500 ML BAG IV SCH (17:36)
--- NOTE | 2018-12-06 17:45 | PN ---
Date of Progress Note: 12/06/2018 Subjective: The patient was admitted with atrial fibrillation with RVR and chest pain. Has elevatio n in troponin. The patient did undergo a stress test yesterday. Nuclear medicine will follow up wit h Cardiology. Physical Examination: Vital Signs: Blood pressure 139/63, pulse of 69. Chest: Clear to auscultation. Heart: S1, S2. Regular. Systolic murmur. Abdomen: Soft, nontender. Extremities: Trace edema. Laboratory Data: WBC 9.1, H and H 8.9/27.5, platelets 264. Sodium 139, potassium 3.7, bicarb 24, BU N 24, creatinine 1.4. This is post dialysis. Calcium 8.5, phosphorus 1.6. Yesterday, creatinine 3, dialysis was not done. Current Medications: The patient on include aspirin, nystatin, Plavix, Epogen, atorvastatin, clonidi ne 0.1 as needed, hydralazine 50 t.i.d., metoprolol 25 b.i.d., nifedipine, prazosin , IV iron. Assessment And Plan: 1.End-stage renal disease, questionable recovery. The patient is doing well. I am going to go [facility] and do 24-hour urine collection and we will follow up the patient. 2.Hypertension, controlled, optimal. Continue current treatment. 3.Anemia of chronic kidney disease. Continue current treatment. 4.Atrial fibrillation with non-ST elevation myocardial infarction as by Cardiology. We will follow up. FIFI Voice ID: [id number] Report ID: [id number]
[2018-12-06] MEDS ORDERED: ONDANSETRON 4 MG/2 ML VIAL IV PRN (19:42)
--- NOTE | 2018-12-06 20:44 | PN ---
Ms. Christie has been followed by Dr. Benjamin for atrial fibrillation. She had elevated troponin. Mitchell wood was seen by Dr. Benjamin on 12/05/2018. Today, 12/06/2018, patient had an echocardiogram that was un remarkable. Lexiscan that was ordered by Dr. Benjamin showed a nondiagnostic results because of motion . I think we would prefer to treat her medically right now, considering her overall status with anem ia, renal failure, and history of multiple CVAs and PAD. She can go home whenever it is okay with Dr Wilma Arisa. We will see her as an outpatient. EMILY/TASHA Voice ID: [id number] Report ID: [id number]
[2018-12-06] MEDS: TERAZOSIN HCL 1 MG CAP PO SCH (21:18)
[2018-12-07] MEDS: HYDRALAZINE HCL 25 MG TABLET PO SCH ×3 (01:11→17:08)
--- NOTE | 2018-12-07 01:29 | PN ---
The patient does not have any chest pain. She, generally, is stable. Her examination does not revea l any cardiac arrhythmia or any pulmonary congestion. The patient is on sliding scale. The patient, in view of her lack of symptoms and inconclusive stress test, will be monitored. BENNETT/TASHA Voice ID: [id number] Report ID: [id number]
[2018-12-07] MEDS ORDERED: HEPARIN 5000 UNIT/ML 1 ML VIAL IV ONE (02:11)
[2018-12-07] MEDS: METOPROLOL TAR 25 MG TAB PO SCH ×2 (06:22→17:08)
[2018-12-07 07:50] LABS: Albumin 1.9 g/dL (3.4-5.0); Phosphorus 2.6 mg/dL (2.5-4.9); Potassium 3.2 mmol/L (3.5-5.1)
[2018-12-07] MEDS: SUCROFERRIC OXYHYDROXIDE 1000 MG PO SCH ×3 (08:00→17:00)
[2018-12-07] MEDS: CLOPIDOGREL 75 MG TABLET PO SCH (08:44)
[2018-12-07] MEDS: ASCORBIC ACID 500 MG TABLET PO SCH ×2 (08:44→21:42)
[2018-12-07] MEDS: ASPIRIN 81 MG CHEWABLE TABLET PO SCH (08:44)
[2018-12-07] MEDS: DIVALPROEX DR 500MG TAB PO SCH ×2 (08:44→21:42)
[2018-12-07] MEDS: POLYETHYL GLY 3350 17 GM/DOSE PO SCH (08:44)
[2018-12-07] MEDS: NIFEDIPINE XL 30 MG TABLET PO SCH ×2 (08:44→08:54)
[2018-12-07] MEDS: INSULIN -REGULAR HUMAN 50 UNIT/0.5 ML ML SQ SCH ×4 (08:44→21:42)
[2018-12-07] MEDS: FERROUS SULFATE 325 MG TAB PO SCH ×2 (08:44→21:41)
[2018-12-07] MEDS: ATORVASTATIN 20 MG TAB PO SCH (08:44)
[2018-12-07] MEDS: NYSTATIN PWDR 100000 UNIT/GM TOP SCH (08:55)
[2018-12-07] MEDS ORDERED: VANCOMYCIN 500 MG in NA CHLORIDE 0.9% 100 ML IVPB SCH (12:00)
--- NOTE | 2018-12-07 20:00 | P.CNS ---
Date of Consult: 12/07/18 Reason for Consult: Left ankle osteomyelitis Requesting Physician: Chapin Arias Primary Care Provider: Chapin Arias Chief Complaint: Purulent drainage left ankle History of Present Illness: This patient was admitted on 12/04/2018 with a racing heartbeat determined to be A -fibrillation. During this hospitalization the patients bandage on the lateral side of the left ankle was changed to find significant draining purulence cultured and found to be MRSA. This is a chronic osteomyelitis that began as a complication after ORIF left ankle trimalleolar fracture dislocation 01/02/2018. Severe chronic ischemia LLE impaired wound healing despite transfer to [facility] where Dr. Michael Garcia M.D., performed a left fem-pop bypass. Severe small vessel disease was present below the knees bilaterally and prevents use of a vascular flap. 5 months later MRI left ankle on 06/15/2017 proved osteomyelitis of the distal fibula and infarct of the talus as drainage proved positive for MRSA. Allergies codeine Allergy (Verified 08/31/17 22:20) Shortness of breath Home Medications: Aspirin 81 mg PO DAILY 01/01/18 Atorvastatin Calcium 20 mg PO DAILY 01/01/18 Carvedilol 12.5 mg PO BID 01/01/18 Clopidogrel Bisulfate [Plavix*] 75 mg PO DAILY 01/01/18 Clonidine HCl [Catapres] 0.1 mg PO Q8HP 06/15/18 Divalproex Sodium [Depakote] 500 mg PO Q12HR 06/15/18 Ferrous Sulfate [Iron] 325 mg PO Q12HR 06/15/18 Hydralazine HCl [Apresoline] 50 mg PO Q8HR 06/15/18 Insulin Glargine,Hum.rec.anlog [Lantus Solostar] 35 unit SQ Q12HR 06/15/18 Insulin Lispro [Humalog Kwikpen U-100] 3 unit SQ AC 06/15/18 Lorazepam [Ativan] 1 mg PO Q8HP 06/15/18 Nifedipine [Nifedipine ER] 30 mg PO DAILY 06/15/18 Nystatin Powder [Mycostatin (Powder)*] 1 pretty TOP DAILY 06/15/18 Polyethylene Glycol 3350 [Glycolax] 17 gm PO DAILY 06/15/18 Sennosides 17.2 mg PO DAILY 06/15/18 Terazosin HCl 4 mg PO BEDTIME 06/15/18 Acetaminophen [Tylenol] 650 mg PO Q6H PRN 12/04/18 Ascorbic Acid [Vitamin C] 500 mg PO BID 12/04/18 Sucroferric Oxyhydroxide [Velphoro] 1,000 mg PO TIDWM 12/04/18 - Past Medical/Surgical History Diabetic: Yes -: HTN -: DM -: Stroke (JUNE 2017) -: Seizures -: Progressive Tremors -: Sweets Syndrome 2001 -: Stroke (2005) -: cholecystectomy -: Knee surgery -: Hysterectomy -: Bunionectomy Right Side -: Carptal Tunnel Surgery Right Side -: left ankle sx - Family History Mother Medical History: Cancer Father Notes: Heart Attack Sister Medical History: Diabetes Brothers Medical History: Diabetes Notes: Heart Attack - Social History Smoking Status: Unknown if ever smoked Alcohol use: No CD- Drugs: No Caffeine use: Yes [facility] Review of Systems 10-point ROS is otherwise unremarkable Physical Examination Temp Pulse Resp BP Pulse Ox 98.3 F 86 18 129/60 99 12/07/18 16:00 12/07/18 17:08 12/07/18 16:00 12/07/18 17:08 12/07/18 16:00 General: Mild distress (patient began crying during discussions regarding possible amputation level.), Confused (Daughter describes increasing confusion over the past months.) HEENT: Atraumatic, Normocephalic Neck: Supple Respiratory: Normal air movement Cardiovascular: Abnormal pulses Capillary refill: >2 Seconds Gastrointestinal: Soft and benign, Non-distended Musculoskeletal: No tenderness (diabetic neuropathy), Warmth Integumentary: Diabetic ulcer (purulent drainage from chronic lesion over lateral malleolus) Neurological: Abnormal sensation WBCs 9.1; NEUT 75%; MRSA SENSITIVE TO VANC, BACTRIM ONLY, INTERMEDIATE TO TETRACYCLINE - Problems (1) Chronic osteomyelitis of left ankle with draining sinus Current Visit: Yes Status: Chronic Plan: Patient has been started on vancomycin IV. Consulted wound care. Started discussions of possible amputation as this is the patients second Hospitalization for IV treatment with vancomycin. (2) Essential hypertension Onset Date: 01/02/18 Current Visit: No Status: Acute (3) History of stroke Onset Date: 08/07/17 Current Visit: No Status: Chronic
[2018-12-07] MEDS: TERAZOSIN HCL 1 MG CAP PO SCH (21:37)
--- NOTE | 2018-12-07 22:03 | PN ---
Patient afebrile. She does not have any chest pain. I spoke to Cardiology Service, they do not want any cardiac catheterization on account of her multiple issues including the active infection in the ankle. Closer examination of the ankle wound was done today. There is clear purulent drainage from the left ankle compatible with active MRSA infection. I spoke to the family as well as Dr. Contreras. Patient very likely will need an amputation due to nonhealing for many months. Patient also has issu es with peripheral vascular disease for which she had femoral-popliteal bypass in the past. All this will be present to the family and patient, and further action depends on their decision to have proc edure done versus trying antibiotic. My feeling is very likely patient would need amputation. BENNETT/TASHA Voice ID: [id number] Report ID: [id number]
[2018-12-08] MEDS: HYDRALAZINE HCL 25 MG TABLET PO SCH ×3 (00:07→18:10)
--- NOTE | 2018-12-08 00:39 | PN ---
Date of Progress Note: 12/07/2018 Chief Complaint: End-stage renal disease. The patient was admitted to the hospital with atrial fibr illation and rapid ventricular response associated with chest pain and she was found to have elevated troponin and underwent stress test. Review of Systems: Denies fever, chills. Physical Examination: Lungs: Few crackles at bases. Heart: S1, S2. Abdomen: Soft, benign, nontender. Extremities: Trace edema. Laboratory Data: Sodium 139, BUN 24. Post dialysis, her creatinine was 1.4. Prior to that, creatin ine was 3.0. Assessment: 1.End-stage renal disease. Dialysis on hold, 24 hours. Urine collection was obtained and results a re pending to assess creatinine clearance. 2.Hypertension. Continue blood pressure medication. Blood pressure is optimal. 3.Atrial fibrillation, non-ST elevation myocardial infarction. Follow up with Cardiology. 4.Anemia due to chronic kidney disease. Monitor hemoglobin and adjust HEATHER. 5.Renal osteodystrophy. Phosphorus level is below normal ranges. Currently, patient is off binder. WILLIE/TASHA Voice ID: [id number] Report ID: [id number]
[2018-12-08] MEDS: METOPROLOL TAR 25 MG TAB PO SCH ×2 (05:22→18:09)
[2018-12-08] MEDS: ACETAMINOPHEN 500 MG TAB PO PRN ×3 (05:27→22:49)
[2018-12-08 06:33] LABS: Phosphorus 3.3 mg/dL (2.5-4.9); Potassium 3.4 mmol/L (3.5-5.1)
[2018-12-08] MEDS: SUCROFERRIC OXYHYDROXIDE 1000 MG PO SCH ×3 (08:00→16:37)
[2018-12-08] MEDS: NYSTATIN PWDR 100000 UNIT/GM TOP SCH (09:00)
--- NOTE | 2018-12-08 10:54 | PN ---
Ms. Christie has had bleeding, trying to give her aspirin and Plavix and heparin will be impossible. Her acute coronary syndrome is mild, and we will not try to do any kind of coronary intervention. So, at this point, I would recommend just control of symptoms and I think we have to accept that her prognosis is quite poor. MICHAEL Voice ID: [id number] Report ID: [id number]
[2018-12-08] MEDS: INSULIN -REGULAR HUMAN 50 UNIT/0.5 ML ML SQ SCH ×4 (11:38→22:50)
[2018-12-08] MEDS: POLYETHYL GLY 3350 17 GM/DOSE PO SCH (11:40)
[2018-12-08] MEDS: FERROUS SULFATE 325 MG TAB PO SCH ×2 (11:40→22:47)
[2018-12-08] MEDS: CLOPIDOGREL 75 MG TABLET PO SCH (11:40)
[2018-12-08] MEDS: ASCORBIC ACID 500 MG TABLET PO SCH ×2 (11:40→22:46)
[2018-12-08] MEDS: DIVALPROEX DR 500MG TAB PO SCH ×2 (11:40→22:48)
[2018-12-08] MEDS: ATORVASTATIN 20 MG TAB PO SCH (11:40)
[2018-12-08] MEDS: ASPIRIN 81 MG CHEWABLE TABLET PO SCH (11:41)
--- NOTE | 2018-12-08 14:25 | P.PN ---
Date of Service: 12/08/18 S: PATIENT C/O PAIN OF SACRAL DECUBITUS. NOTIFIED NSG STATION. DISCUSSED ISSUES WITH FAMILY YESTERDAY, WANT CARE HERE BUT WOULD TRAVEL. O: AFEBRILE; VSS; PAIN CHART 2,2,5,3,0,10/08. GLUCOSE 166,262,251. A: DISCUSSED CASE WITH WHO WILL CONSULT TOMORROW. P: CONTINUE TO FOLLOW PT'S PROGRESS.
--- NOTE | 2018-12-08 22:39 | PN ---
Date of Progress Note: 12/08/2018 Chief Complaint: End-stage renal disease. Patient is admitted to the hospital with atrial fibrillat ion and was treated for atrial fibrillation with rapid ventricular response. Patient was found to burnette ve elevated troponin. Review of Systems: Patient denies chest pain, palpitations. Physical Examination: Lungs: Clear to auscultation bilaterally. Heart: S1, S2. Abdomen: Soft, benign, nontender. Extremities: Dressing in place. Laboratory Data: Hemoglobin 8.9, WBC 9.1, platelet count is 264,000. Chemistries showed sodium 137, potassium 3.4, chloride 100, CO2 of 28, BUN 47, creatinine 2.53, albumin 2.0. Impression And Plan: 1.End-stage renal disease. Monitor electrolytes and azotemia. Patient is undergoing workup to eval uate kidney function. Patient although has diminished urine output and patient was started on diuret ics to control volemia. 2.Hypertension, controlled. 3.Atrial fibrillation per primary team and Cardiology. 4.Anemia of chronic kidney disease. Continue HEATHER. 5.Renal osteodystrophy. Continue renal diet and binders. EB/MODL Voice ID: [id number] Report ID: [id number]
[2018-12-08] MEDS: TERAZOSIN HCL 1 MG CAP PO SCH (22:47)
[2018-12-09] MEDS: HYDRALAZINE HCL 25 MG TABLET PO SCH ×3 (01:18→17:12)
[2018-12-09] MEDS: METOPROLOL TAR 25 MG TAB PO SCH ×2 (05:30→17:12)
[2018-12-09 06:43] LABS: Albumin 1.9 g/dL (3.4-5.0); Phosphorus 3.9 mg/dL (2.5-4.9); Potassium 3.6 mmol/L (3.5-5.1)
[2018-12-09] MEDS: SUCROFERRIC OXYHYDROXIDE 1000 MG PO SCH ×3 (08:00→17:00)
[2018-12-09] MEDS: NYSTATIN PWDR 100000 UNIT/GM TOP SCH (09:00)
[2018-12-09] MEDS: ASCORBIC ACID 500 MG TABLET PO SCH ×2 (09:00→22:17)
[2018-12-09] MEDS: ACETAMINOPHEN 500 MG TAB PO PRN (09:36)
[2018-12-09] MEDS: POLYETHYL GLY 3350 17 GM/DOSE PO SCH (09:36)
[2018-12-09] MEDS: DIVALPROEX DR 500MG TAB PO SCH ×2 (09:37→22:17)
[2018-12-09] MEDS: ASPIRIN 81 MG CHEWABLE TABLET PO SCH (09:37)
[2018-12-09] MEDS: ATORVASTATIN 20 MG TAB PO SCH (09:37)
[2018-12-09] MEDS: INSULIN -REGULAR HUMAN 50 UNIT/0.5 ML ML SQ SCH ×4 (09:37→22:16)
[2018-12-09] MEDS: FERROUS SULFATE 325 MG TAB PO SCH ×2 (09:37→22:17)
[2018-12-09] MEDS: CLOPIDOGREL 75 MG TABLET PO SCH (09:37)
[2018-12-09] MEDS: NIFEDIPINE XL 30 MG TABLET PO SCH (09:42)
--- NOTE | 2018-12-09 13:17 | P.PN ---
Date of Service: 12/09/18 S: PATIENT WITHOUT C/O PAIN TODAY. PATIENT CONCERNED ABOUT POSSIBILITY OF AMPUTATION. DISCUSSED ISSUES WITH FAMILY PRESENT MONDAY. PATIENT REASSURED OPTIONS WERE BEING DISCUSSED, NO DECISIONS MADE.. O: AFEBRILE; VSS; PAIN CHART 4,4,2,4,4,06/10. PATIENT CONTINUES ON IV VANCOMYCIN WITH BANAGE CHANGES PER WOUND CARE CONSULT. A: DISCUSSED CASE WITH , BUT CANNOT LOCATE CONSULT REQUEST. RESUBMITTED CONSULT REQUEST. P: WILL CONTINUE TO FOLLOW PT'S PROGRESS.
[2018-12-09] MEDS: TERAZOSIN HCL 1 MG CAP PO SCH (22:17)
--- NOTE | 2018-12-09 22:17 | PN ---
Patient is afebrile. However, there is still purulent drainage from the wound. I spoke to Dr. William mcdonald and Dr. Sanderson has seen the patient. I spoke to the family as well as the patient for possible ampu tation in view of nonresponse from elevated treatments and antibiotics. I will check on recommendati ons from Dr. Sanderson. BENNETT/TASHA Voice ID: [id number] Report ID: [id number]
[2018-12-10] MEDS: HYDRALAZINE HCL 25 MG TABLET PO SCH ×3 (00:38→17:11)
--- NOTE | 2018-12-10 01:45 | PN ---
Date of Progress Note: 12/09/2018 Chief Complaint: End-stage renal disease, on dialysis. History Of Present Illness: Patient is admitted to the hospital because of atrial fibrillation with rapid ventricular response. Patient was found to have elevated troponin, non-ST elevation myocardial infarction. Review of Systems: Denies fevers or chills. Physical Examination: Lungs: Clear to auscultation bilaterally. Heart: S1, S2. Abdomen: Soft, benign, nontender. Extremities: Slight edema. Laboratory Data: Blood Work: Hemoglobin 8.9, WBC 9.1, platelet count is 264, 000. Sodium 136, potassium 3.6, albumin 1.9. Carbon dioxide 25, BUN 52, creatinine 2.65, glucose 216. Impression And Plan: 1. End-stage renal disease. Next dialysis tomorrow. Patient has oliguric urine output ranging from 200 per 24 hours. Recently, patient was started on diuretic and urine output increased to 700 mL/ day. Patient will require dialysis to control volemia and provide metabolic clearance. Patient has history of malnutrition and hyperazotemia. Continue dialysis and patient is to resume dialysis tomorrow. 2. Atrial fibrillation, per primary team. 3. Diabetes mellitus. Continue insulin. 4. Hypoalbuminemia and malnutrition. Increase p.o. protein intake. 5. Hypertension. Blood pressure controlled. WILLIE/MODFlor Voice ID: [id number] Report ID: [id number] SERGIO
[2018-12-10] MEDS: METOPROLOL TAR 25 MG TAB PO SCH ×2 (05:09→17:11)
[2018-12-10] MEDS: INSULIN -REGULAR HUMAN 50 UNIT/0.5 ML ML SQ SCH ×4 (07:30→21:39)
[2018-12-10] MEDS: SUCROFERRIC OXYHYDROXIDE 1000 MG PO SCH ×3 (08:00→17:00)
[2018-12-10] MEDS: EPOETIN ALFA 10,000 UNIT/ML VIAL IV SCH (08:05)
[2018-12-10 08:34] LABS: Albumin 1.8 g/dL (3.4-5.0); Phosphorus 4.4 mg/dL (2.5-4.9); Potassium 4.2 mmol/L (3.5-5.1)
[2018-12-10] MEDS: NYSTATIN PWDR 100000 UNIT/GM TOP SCH (09:00)
[2018-12-10] MEDS: ASCORBIC ACID 500 MG TABLET PO SCH ×2 (09:00→21:39)
[2018-12-10] MEDS ORDERED: CHLORHEXIDINE GLUCO 4% 120 ML TOP SCH (10:00)
[2018-12-10] MEDS: ASPIRIN 81 MG CHEWABLE TABLET PO SCH (11:42)
[2018-12-10] MEDS: ATORVASTATIN 20 MG TAB PO SCH (11:42)
[2018-12-10] MEDS: CLOPIDOGREL 75 MG TABLET PO SCH (11:42)
[2018-12-10] MEDS: DIVALPROEX DR 500MG TAB PO SCH ×2 (11:43→21:39)
[2018-12-10] MEDS: POLYETHYL GLY 3350 17 GM/DOSE PO SCH (11:43)
[2018-12-10] MEDS: FERROUS SULFATE 325 MG TAB PO SCH ×2 (11:43→21:39)
[2018-12-10] MEDS: NIFEDIPINE XL 30 MG TABLET PO SCH (11:44)
--- NOTE | 2018-12-10 13:21 | CON ---
Date of Consultation: 12/09/2018 Reason For Consultation: Infected wound, left ankle. History Of Present Illness: The patient is a 68-year-old female with multiple medical problems, who underwent ORIF of ankle fracture approximately a year ago and has had problems with this wound ever s ronan. She had the hardware removed and then she had an osteo back in June. She states that 3 wee ks ago, the wound opened up and she started to have problem again. No fever or chills. But when she was admitted, it was found to have purulent discharge. Cultures were done. It was growing out MRSA . She initially came in, however with atrial fibrillation and RVR and SC. And she is being followed by Dr. Benjamin before that she has had a complete cardiac workup, and she is a cardiac patient with s ignificant cardiac disease. I was consulted because there was consideration being given for possible amputation of the left lower extremity. She did have an MRI in June which showed osteo of the d istal fibula and she had a Doppler which showed disease at the distal popliteal artery on the left si de. She does still walk as per the patient and there was no sore throat, runny nose, cough, headache s or dizziness. No chest pain. No fever or chills currently. Review of Systems: Otherwise unremarkable. Past Medical History: Significant for end-stage renal disease, diabetes, hypertension, infected woun d, left leg, old CVA, anxiety, anemia. Past Surgical History: Left ankle surgery. Tesio catheter placement for dialysis. Allergies: INCLUDE CODEINE. Social History: Patient does not smoke or drink alcohol. Family History: Significant for diabetes and high blood pressure. Physical Examination: Vital Signs: Stable. She is afebrile. General: She is awake, alert, and oriented x3. Head and ne ck: Cranial nerves 2 through 12 are grossly within normal limits. No neck masses. No JVD. Throat clear. Neck is supple. Chest: Clear. Heart: S1 and S2. Abdomen: Soft. Extremities: She has a palpable femoral and popliteal pulses that I can feel. There is a very faint dorsalis pedis, and I c annot feel the posterior tibial. On the left ankle laterally, there is a wound approximately 4 cm x 2 cm wide. It has good granulation tissue with fibrin present but there is no surrounding erythema, warmth or edema. There is minimal drainage. Diagnostic Data: Her white count is 9.1, H and H is 8.9 and 27.5, platelets 264. Her INR was normal . She is on heparin and her PTT last one recorded is 28.7. Her BUN is 54, creatinine is 2.59, album in is 1.8. Her echo stress test was reviewed. And Dr. Benjamin notes were reviewed. Assessment: A 68-year-old female with multiple medical problems, with infected wound left ankle and also recent cardiac events. Recommendation: At this time, we need to repeat the MRI and the arterial Doppler to see what the cur rent status regarding her left ankle is, whether the osteo has gotten worse or better. She was seen by Dr. Gonzalez back in June. I am not sure of the duration of the antibiotics, she was treated, b ut I see it was reportedly 6 weeks. And, we will see based on MRI results how to proceed next. Also we need to see if she needs another intervention regarding her left leg vascular status. She did burnette ve either stent or a femoral-popliteal done on the left side. I am not exactly sure which, but if th ere is correctable disease that should be done as well. My recommendation at this time is going to be to await those 2 tests as well as consideration should be given to hyperbaric therapy on a patient with chronic osteo, and we should try the limb salvaging specially in the event of a recent cardiac event and she would not be a good anesthetic risk at this time. I will further discuss the case with Dr. Benjamin as well and the plan of care was discussed already with Dr. Arias and Dr. Contreras. /MODL Voice ID: [id number] Report ID: [id number]
[2018-12-10] MEDS ORDERED: LORazepam 2 MG/ML VIAL IV ONE (13:33)
--- NOTE | 2018-12-10 13:39 | RAD REPORT ---
EXAM DESCRIPTION: US - Lower Extremity Arterial Bilat - 12/10/2018 1:25 pm CLINICAL HISTORY: peripheral vascular disease COMPARISON: Lower Extremity Artery [facility] dated 06/16/2018; Fluoroscopy <1 Hour dated 06/19/2018; [facility] Single View dated 06/17/2018 TECHNIQUE: Bilateral lower extremity arterial Doppler examination was performed with gerson raphael FINDINGS: Examination was limited due to issues with patient cooperation. Diffusely monophasic waveforms are seen involving both lower extremity arterial systems. The left-yasir ed femoral artery graft appears patent. No complete occlusion seen. IMPRESSION: Monophasic waveforms are seen throughout both lower extremity arterial system suggesting moderately severe inflow disease. Left femoral artery graft appears patent. Only a limited examination could be performed due to patient cooperation issues.
--- NOTE | 2018-12-10 16:29 | P.PN ---
Date of Service: 12/10/18 S: PATIENT OUT OF ROOM TODAY, GONE TO RADIOLOGY FOR FOLLOW-UP MRI OF THE LEFT ANKLE. ABOUT POSSIBILITY OF AMPUTATION. DISCUSSED ISSUES WITH FAMILY PRESENT MONDAY. PATIENT REASSURED OPTIONS WERE BEING DISCUSSED, NO DECISIONS MADE.. O: AFEBRILE; VSS; AFEBRILE; PAIN CHART 2,3,3,3,3,10. PATIENT CONTINUES ON IV VANCOMYCIN WITH BANDAGE CHANGES PER WOUND CARE CONSULT. A: DISCUSSED CASE WITH DR. PORTILLO AFTER HIS CONSULTATION; APPRECIATE HIS INPUT. HE HAS INITIATED REPEATING MRI DONE IN JUNE AND CONSIDERATION FOR HYPERBARIC OXYGEN THERAPY. P: WILL CONTINUE TO FOLLOW PT'S PROGRESS. ADDENDUM: CAME BY IN EVENIING TO DISCUSS RESULTS OF DOPPLER LLE SHOWING FEM-POP BY-PASS TO BE PATENT, EXTENSIVE SMALL VESSEL DISEASE NOTED IN LOWER LEG. MRI NOT DONE. [facility]
[2018-12-10] MEDS: MUPIROCIN 2% OINT 22GM TUBE TOP SCH (21:00)
[2018-12-10] MEDS: TERAZOSIN HCL 1 MG CAP PO SCH (21:38)
[2018-12-11] MEDS: HYDRALAZINE HCL 25 MG TABLET PO SCH ×3 (01:11→16:40)
--- NOTE | 2018-12-11 01:22 | PN ---
Patient is afebrile. Patient was seen by Surgery Service to see whether debridement or amputation is necessary at this point. Patient went through vascular studies as well as MRI done today. Patient meanwhile will be continued on vancomycin with the dialysis. BENNETT/MODL Voice ID: [id number] Report ID: [id number]
--- NOTE | 2018-12-11 03:25 | PN ---
Date of Progress Note: 12/10/2018 Chief Complaint: End-stage renal disease on dialysis. History Of Present Illness: Patient was admitted to the hospital because of atrial fibrillation with rapid ventricular response. She was found to have non-ST elevation myocardial infarction. She adri es chest pain. Review of Systems: Denies fever, chills. Denies chest pain or palpitation. Physical Examination: Lungs: Few crackles at bases. Heart: S1, S2. Abdomen: Soft, benign. Extremities: Slight edema. Laboratory Data: Blood work: WBC 9.1, hemoglobin 8.9, platelet count 264. Sodium 136, potassium 4. 2, chloride 100, CO2 of 24, BUN 54, creatinine 2.59, glucose 149, calcium 7.8, phosphorus 4.4, albumi n 1.8. Impression And Plan: 1.End-stage renal disease. Dialysis is scheduled today to obtain metabolic clearance and ultrafiltr ation. Patient was started on diuretic. Urine output somewhat increased, but is inadequate. Mario Alberto t has urine output up to 700 cc per 24 hours. Patient will require dialysis to control volemia. 2.Atrial fibrillation per primary team. 3.Diabetes mellitus. Continue insulin. 4.Hypoalbuminemia, malnutrition. Increase p.o. protein intake. 5.Hypertension. Blood pressure controlled. Adjust medication. Monitor blood pressure during dialysis to prevent intra-dialysis hypotension. WILLIE/TASHA Voice ID: [id number] Report ID: [id number]
[2018-12-11] MEDS: METOPROLOL TAR 25 MG TAB PO SCH ×2 (06:39→16:40)
[2018-12-11] MEDS: INSULIN -REGULAR HUMAN 50 UNIT/0.5 ML ML SQ SCH ×4 (07:30→22:05)
[2018-12-11] MEDS: SUCROFERRIC OXYHYDROXIDE 1000 MG PO SCH ×3 (08:00→15:52)
[2018-12-11] MEDS: POLYETHYL GLY 3350 17 GM/DOSE PO SCH (08:56)
[2018-12-11] MEDS: MUPIROCIN 2% OINT 22GM TUBE TOP SCH ×2 (08:56→22:06)
[2018-12-11] MEDS: CLOPIDOGREL 75 MG TABLET PO SCH (08:57)
[2018-12-11] MEDS: ASPIRIN 81 MG CHEWABLE TABLET PO SCH (08:57)
[2018-12-11] MEDS: ATORVASTATIN 20 MG TAB PO SCH (08:57)
[2018-12-11] MEDS: DIVALPROEX DR 500MG TAB PO SCH ×2 (08:57→22:04)
[2018-12-11] MEDS: FERROUS SULFATE 325 MG TAB PO SCH ×2 (08:57→22:04)
[2018-12-11] MEDS: ASCORBIC ACID 500 MG TABLET PO SCH ×2 (08:57→22:04)
[2018-12-11] MEDS: NIFEDIPINE XL 30 MG TABLET PO SCH (08:57)
[2018-12-11] MEDS: NYSTATIN PWDR 100000 UNIT/GM TOP SCH (08:58)
--- NOTE | 2018-12-11 13:41 | RAD REPORT ---
EXAM DESCRIPTION: RAD - Ankle Left 2 View - 12/11/2018 10:28 am CLINICAL HISTORY: Left ankle pain FINDINGS: Cortical regularity involves lateral malleolus suspicious for osteomyelitis Air is present within the soft tissues. Lucency within the talar dome may represent osteomyelitis or subchondral cysts. No acute fracture or dislocation seen
--- NOTE | 2018-12-11 14:40 | PN ---
Date of Progress Note: 12/11/2018 Subjective: Patient doing well. Still have some leg swelling. No shortness of breath. Patient has been on dialysis. Physical Examination: Vital Signs: When I saw the patient, blood pressure 160/70, pulse of 87. Chest: Clear to auscultation. Heart: S1, S2. Regular. Systolic murmur. Abdomen: Soft, nontender. Extremities: Trace edema. Laboratory Data: Lab for the patient; H and H 8.9/27.5. Sodium 136, potassium 4.2, bicarb 24, BUN 5 4, creatinine 2.5, GFR of 18. This is postdialysis. Patient had dialysis yesterday. Assessment And Plan: 1.End-stage renal disease. I am going to continue the patient on dialysis Monday, Monday, Monday . 2.Secondary hyperparathyroidism, stable. Calcium, phosphorus on the goal. 3.Anemia of chronic kidney disease. Continue HEATHER. 4.Foot infection, questionable osteomyelitis. We will follow up with Surgery. 5.Diabetes, as by Primary. 6.Over volume. Continue current diuresis. TRISHA/TASHA Voice ID: [id number] Report ID: [id number]
[2018-12-11] MEDS: TERAZOSIN HCL 1 MG CAP PO SCH (22:03)
[2018-12-11] MEDS: ACETAMINOPHEN 500 MG TAB PO PRN (22:05)
[2018-12-12] MEDS: HYDRALAZINE HCL 25 MG TABLET PO SCH ×3 (00:17→17:00)
--- NOTE | 2018-12-12 02:53 | PN ---
The patient does not have any chest pain. The patient is confused and the MRI could not be done. __ x-ray was done, which showed evidence of osteomyelitis suspicion as well as air presence in the soft tissues. I spoke to Dr. Sanderson regarding her chances of healing. He feels that in view of h er recent myocardial infarction, high risk status, IV antibiotic with hyperbaric oxygen is a good opt ion. I need to discuss with the family and if they agree, the patient will be discharged with outpat ient IV antibiotic and hyperbaric oxygen. BENNETT/TASHA Voice ID: [id number] Report ID: [id number]
[2018-12-12] MEDS: METOPROLOL TAR 25 MG TAB PO SCH ×2 (06:01→17:33)
[2018-12-12] MEDS: SUCROFERRIC OXYHYDROXIDE 1000 MG PO SCH ×3 (08:00→16:36)
[2018-12-12] MEDS: ATORVASTATIN 20 MG TAB PO SCH (08:45)
[2018-12-12] MEDS: INSULIN -REGULAR HUMAN 50 UNIT/0.5 ML ML SQ SCH ×3 (08:45→17:33)
[2018-12-12] MEDS: POLYETHYL GLY 3350 17 GM/DOSE PO SCH (08:46)
[2018-12-12] MEDS: DIVALPROEX DR 500MG TAB PO SCH (08:46)
[2018-12-12] MEDS: ASCORBIC ACID 500 MG TABLET PO SCH (08:46)
[2018-12-12] MEDS: ASPIRIN 81 MG CHEWABLE TABLET PO SCH (08:46)
[2018-12-12] MEDS: FERROUS SULFATE 325 MG TAB PO SCH (08:47)
[2018-12-12] MEDS: CLOPIDOGREL 75 MG TABLET PO SCH (08:47)
[2018-12-12] MEDS: NIFEDIPINE XL 30 MG TABLET PO SCH (08:48)
[2018-12-12] MEDS: MUPIROCIN 2% OINT 22GM TUBE TOP SCH (08:49)
--- NOTE | 2018-12-12 09:44 | PN ---
Date of Progress Note: 12/12/2018 Subjective: Patient is awake, alert. No complaint. X-ray of her ankle revealed osteomyelitis, whic h is worse in one x-ray in June. Objective: Vital Signs: Stable. She is afebrile. Skin: Dressing is clean, dry, and intact. Assessment: Osteomyelitis and infected left ankle wound with peripheral vascular disease. Recommendation: I discussed the case with Dr. Arias yesterday as the patient just recently had an [place] and no aggressive intervention should be contemplated at this time until she has cardiac clearance. Until that time, IV antibiotics, hyperbaric therapy, and wound care are ordered, and she can follow up with me in the wound healing center upon discharge. /MODL Voice ID: [id number] Report ID: [id number]
[2018-12-12] MEDS: ACETAMINOPHEN 500 MG TAB PO PRN (13:34)
--- NOTE | 2018-12-12 15:05 | PN ---
Date of Progress Note: 12/12/2018 History Of Present Illness: The patient was admitted with foot infection. Physical Examination: Vital Signs: Blood pressure 151/57, pulse of 69. Chest: Clear to auscultation. Heart: S1, S2. Regular. Abdomen: Soft, nontender. Extremities: No edema. Dressing on the right foot. Laboratory Data: WBC 9.1, H and H 8.9/27.5, platelets 264. Sodium 136, potassium 4.2, bicarb 24, BU N 54, creatinine 2.5, GFR of 18, calcium 7.8, phosphorus 4.4, albumin 1.8. Medications: Current medications the patient on include: 1.Aspirin. 2.Vancomycin. 3.Plavix. 4.Epogen. 5.Atorvastatin. 6.Clonidine. 7.Hydralazine 50 t.i.d. 8.Metoprolol 25 b.i.d. 9.Nifedipine. 10.Prazosin 4 mg at bedtime. 11.Depakote. 12.Zofran. 13.IV iron. Assessment And Plan: 1.End-stage renal disease. We will continue the patient on dialysis. I am going to go ahead and ad d Lasix for the patient for better volume control and we will monitor. 2.Hypertension. Add Lasix. 3.Secondary hyperparathyroidism, stable. Calcium and phosphorus on the goal. 4.Anemia of chronic kidney disease. Continue HEATHER and IV iron. 5.Foot infection. Not a candidate for intervention given the cardiac history for the time being. Rafita wood will follow up with ID and Surgery. FIFI Voice ID: [id number] Report ID: [id number]
[2018-12-12] MEDS: EPOETIN ALFA 10,000 UNIT/ML VIAL IV SCH (15:19)
[2018-12-12] MEDS ORDERED: FUROSEMIDE 40 MG/4 ML VIAL IV SCH (17:00)
--- NOTE | 2018-12-12 19:00 | P.PN ---
Date of Service: 12/12/18 S: PATIENT LOOKING FORWARD TO DISCHARGE IN AM. MRI OF THE LEFT ANKLE CANCELLED PATIENT COULD NOT COOPERATE WITH STUDY. O: AFEBRILE; VSS; PAIN CHART 2,2,2,5,5,08/08. PATIENT CONTINUES ON IV VANCOMYCIN WITH BANDAGE CHANGES PER WOUND CARE CONSULT. BILATERAL LE ARTERIAL DOPPLER CONFIRMED SMALL VESSEL MODERATELY SEVERE INFLOW DISEASE BOTH LOWER LEGS. LEFT FEMORAL ARTERY GRAFT PATENT A: PATIENT PLEASED TO HAVE A CHANCE TO PRESERVE LLE. P: DR. PORTILLO HAS PLAN TO FOLLOW PATIENT OUTPATIENT IN THE WOUND CLINIC WHILE SHE IS UNDERGOING 6 WEEKS ABX TX WITH VANCOMYCIN AND HYPERBARIC OXYGEN THERAPY AT [facility].
== END 2018-12-12 19:20 ==
LOC: ER 11:52 → ERHOLD 14:57 → 2ND 15:31
PROVIDERS: ADMIT Internal Medicine; ATTEND Internal Medicine
DX: I48.2 Chronic atrial fibrillation (principal); I21.4 Non-ST elevation (NSTEMI) myocardial infarction; E11.69 Type 2 diabetes mellitus with other specified complication; M86.472 Chronic osteomyelitis with draining sinus, left ankle and foot; B95.62 Methicillin resistant Staphylococcus aureus infection as the cause of diseases classified elsewhere; E87.8 Other disorders of electrolyte and fluid balance, not elsewhere classified; E05.80 Other thyrotoxicosis without thyrotoxic crisis or storm; E87.70 Fluid overload, unspecified; E11.22 Type 2 diabetes mellitus with diabetic chronic kidney disease; I12.0 Hypertensive chronic kidney disease with stage 5 chronic kidney disease or end stage renal disease; N18.6 End stage renal disease; D63.1 Anemia in chronic kidney disease; N25.0 Renal osteodystrophy; E88.09 Other disorders of plasma-protein metabolism, not elsewhere classified; E46 Unspecified protein-calorie malnutrition; E11.40 Type 2 diabetes mellitus with diabetic neuropathy, unspecified; E11.51 Type 2 diabetes mellitus with diabetic peripheral angiopathy without gangrene; E11.319 Type 2 diabetes mellitus with unspecified diabetic retinopathy without macular edema; I25.2 Old myocardial infarction; F41.9 Anxiety disorder, unspecified; Z79.4 Long term (current) use of insulin; Z79.82 Long term (current) use of aspirin; Z79.02 Long term (current) use of antithrombotics/antiplatelets; Z79.899 Other long term (current) drug therapy; Z99.2 Dependence on renal dialysis; Z86.73 Personal history of transient ischemic attack (TIA), and cerebral infarction without residual deficits; Z95.810 Presence of automatic (implantable) cardiac defibrillator; I35.8 Other nonrheumatic aortic valve disorders; I07.1 Rheumatic tricuspid insufficiency
CPT/HCPCS: 93005 ×2; 93017; 93306; 87070; 85025 ×2; 80048; 36415 ×7; 83735; 87205; 82274; 85049; 85610 ×2; 82962 ×32; 80076; 85730 ×10; 80069 ×5; 82570; 87077; 87186; 80202; 84484 ×3; 83880; 71045; 73600; 90935 ×3; 93925; 97110; 97112; 97162; 78452; 96374; 99291; J1644 ×11; J2785; J2250 ×3; J2405; G0257; A9500; G0378 ×2; J1940

== ENCOUNTER 2018-12-17 19:24 | Emergency (ER) | payer OTHER ==
--- OUTSIDE RECORDS SUMMARY | 2018-12-17 19:27 | XMS REPORT | Clinical Summary ---
:1950 Author Organization [facility] [employer] Address [address] [place] [address] Care Team Providers Name Role Phone Chapin [...] Team Description 10/15/2018 Anesthesia Event General Surgery Ema Chung MD Cheema, Ivelisse, FNP 10/15/2018 Surgery General Surgery Gilles Quigley AV REKHA Mcgill MD -LEFT UPPER EXTREMITY 10/15/2018 Hospital Encounter General Surgery Gilles Quigley MD after 12/16/2017 Social History Tobacco Use Types Packs/Day Years [...] Vital Signs Vital Sign Reading Time Taken Comments Blood Pressure 155/70 10/15/2018 4:15 PM CDT [...] primary anesthetic Staff: Anesthesiologist: Ema Chung MD Resident/PATTERN MAKER PROGRAMER/AA: Ghislaine Farah CRNA Performed by: Anesthesiologist Preprocedure: [...] SCREEN Routine 10/15/2018 12:36 PM CDT after 12/16/2017 Results POC glucose (10/15/2018 3:39 PM CDT)Only the most recent of2 resultswithin the time period is included. POC glucose 111 (H) 65 - 99 mg/dL DEMARCO MEHTA Comment: [facility] RN Notified Meter ID: [id number] Filer And Sander: René Lieberman Specimen Performing Organization Address City/State/Zipcode Phone Number [facility] DEPARTMENT OF PATHOLOGY [address] [place] [address] AND GENOMIC MEDICINE [facility] [address] [place] [address] HOSPITAL XR Chest 1 Vw Portable (10/15/2018 1:06 PM CDT) Specimen Narrative Performed At EXAMINATION:XR CHEST 1 VW PORTABLE [facility] CLINICAL HISTORY:Pre-Op COMPARISON:No IMPRESSION: Right IJ approach double lumen central line, tips projecting over the SVC. No pneumothorax identified. Cardiac silhouette and pulmonary vasculature within normal as. No lobar consolidation or pleural effusion identified on the frontal view(s). Cholecystectomy. [facility]-[id number] Procedure Note Hm Interface, Radiology Results Incoming - 10/15/2018 2:17 PM CDT EXAMINATION: XR CHEST 1 VW PORTABLE CLINICAL HISTORY: Pre-Op COMPARISON: No IMPRESSION: Right IJ approach double lumen central line, tips projecting over the SVC. No pneumothorax identified. Cardiac silhouette and pulmonary vasculature within normal as. No lobar consolidation or pleural effusion identified on the frontal view(s). Cholecystectomy. [facility]-[id number] Performing Organization Address [facility] Phone Number [facility] [address] [place] [address] ECG 12 lead (10/15/2018 12:45 PM CDT) Ventricular rate 59 [facility] Atrial rate 59 [facility] OK interval 172 [facility] QRSD interval 72 [facility] QT interval 426 [facility] QTC interval 421 [facility] P axis 1 41 [facility] QRS axis 1 -18 [facility] T wave axis 85 [facility] EKG impression Sinus [facility] MUSE bradycardia-Cannot rule out Inferior infarct , age undetermined-Abnormal ECG-No previous ECGs available-Electronicall y Signed By Nohemy HERNANDEZ, Mukesh ([id number]) on 10/16/2018 7:17:44 AM Specimen Narrative Performed At Performing Organization Address [facility] Phone Number [facility] MUSE [address] [place] [address] POC panel 4 (10/15/2018 12:42 PM CDT) POC sodium 139 135 - 148 [facility] mmol/L [facility] POC potassium 4.5 3.5 - 5.0 [facility] mmol/L [facility] POC hematocrit 34 (L) 37 - 47 % [facility] POC glucose 62 (L) 65 - 99 mg/dL [facility] POC hemoglobin 11.6 (L) 12.0 - 16.0 [facility] Comment: g/dL [place] Meter ID: [id number] HOSPITAL Filer And Sander: Justo Diegoilie Specimen Blood Performing Organization Address [facility] Phone Number [facility] DEPARTMENT OF PATHOLOGY [address] [place] [address] Estimated GFR (10/15/2018 12:36 PM CDT) Pathologist [facility] Estimated GFR 16 (A) mL/min/1.73 [facility] Comment: [address] CatergoryUnitsInterpretation HOSPITAL G1 >=90 Normal or high G2 60-89Mildly decreased G3m30-33Uzrfvt to moderately decreased K3q92-69Gapdywihzz to severely decreased G4 15-29Severely decreased G5 <15Kidney failure The eGFR was calculated using the Chronic Kidney Disease Epidemiology Collaboration (CKD-EPI) equation. Interpretation is based on recommendations of the National Kidney Foundation-Kidney Disease Outcomes Quality Initiative (NKF-KDOQI) published in 2014. Specimen Plasma specimen Performing Organization Address [facility] Phone Number [facility] DEPARTMENT OF PATHOLOGY [address] [place] [address] Partial thromboplastin time, activated (10/15/2018 12:36 PM CDT) [facility] PTT 41.3 (H) 23.0 - 36.0 [facility] Comment: [facility] PTT therapeutic range for unfractionated heparin is HOSPITAL 61.0-112.0 seconds which corresponds to Anti-Xa 0.3-0.7 U/ml. Specimen Blood Performing Organization Address [facility] Phone Number [facility] DEPARTMENT OF PATHOLOGY [address] [place] [address] Prothrombin time with INR (10/15/2018 12:36 PM CDT) [facility] Prothrombin time 13.3 11.5 - 14.5 [facility] INR 1.0 [facility] Comment: JANINE MANCILLA [facility] International Normalized Ratio (INR) is a therapeutic [facility] monitoring tool for patients who are stable on oral anticoagulant therapy. An INR of 2.0-3.0 is suggested for deep vein thrombosis/pulmonary embolism. Specimen Blood Performing Organization Address City/State/Zipcode Phone Number [facility] DEPARTMENT OF PATHOLOGY [address] [place] [address] AND [facility] [id number] [place] [address] HOSPITAL CBC with platelet and differential (10/15/2018 12:36 PM CDT) WBC 7.3 4.5 - 11.0 k/uL [facility] RBC 3.39 (L) 4.20 - 5.50 [facility] m/uL [facility] HGB 10.7 (L) 12.0 - 16.0 [facility] g/dL [facility] HCT 34.2 (L) 37.0 - 47.0 % [facility] MCV 100.9 (H) 82.0 - 100.0 fL [facility] MCH 31.6 27.0 - 34.0 pg [facility] MCHC 31.3 31.0 - 37.0 [facility] R[facility] - SD 51.3 37.0 - 55.0 fL [facility] MPV 10.6 6.9 - 11.0 fL [facility] Platelet count 236 150 - 400 K/uL [facility] Nucleated RBC 0.00 /100 WBC [facility] Neutrophils 63.8 39.0 - 69.0 % [facility] Lymphocytes 21.7 (L) 25.0 - 45.0 % [facility] Monocytes 10.5 (H) 0.0 - 10.0 % [facility] Eosinophils 3.3 0.0 - 5.0 % [facility] Basophils 0.4 0.0 - 1.0 % [facility] Immature granulocytes 0.3 0.0 - 1.0 % [facility] Specimen Blood Performing Organization Address City/State/Zipcode Phone Number [facility] DEPARTMENT OF PATHOLOGY [address] [place] [address] AND [facility] [id number] [place] [address] HOSPITAL Type and screen (10/15/2018 12:36 PM CDT) ABO grouping O [facility] Rh type POS [facility] Antibody screen (gel) NEG [facility] Specimen Blood Performing Organization Address City/[facility]/Zipcode Phone Number [facility] DEPARTMENT OF PATHOLOGY [address] [place] [address] Basic metabolic panel (10/15/2018 12:36 PM CDT) Sodium 138 135 - 148 mEq/L [facility] Potassium 4.6 3.5 - 5.0 mEq/L [facility] Chloride 99 98 - 112 mEq/L [facility] CO2 28 24 - 31 mEq/L [facility] Anion gap 11@ANIO 7 - 15 mEq/L [facility] BUN 56 (H) 8 - 23 mg/dL [facility] Creatinine 2.88 (H) 0.50 - 0.90 mg/dL [facility] Glucose 66 65 - 99 mg/dL [facility] Calcium 9.0 8.8 - 10.2 mg/dL [facility] Specimen Plasma specimen Performing Organization Address City/[facility]/Zipcode Phone Number [facility] DEPARTMENT OF PATHOLOGY [id number] [place] [address] [place] [address] HOSPITAL after 12/16/2017 Insurance Payer Benefit Plan / Subscriber ID Effective Dates Phone Address Type Group MEDICARE MEDICARE PART A xxxxxxxxxxx 2017-Present [place], [place] Medicare AND B MEDICAID MEDICAID xxxxxxxxx 2018-Present Medicaid Advance Directives For more information, please contact: [phone] Type Date Recorded Patient Mental Hygienist Explanation Advance Directives, Living Will and Medical Power of Supervisor [employer]
[2018-12-17] MEDS ORDERED: NA CHLORIDE 0.9% 1,000 ML ONE (20:12)
[2018-12-17 20:21] LABS: MPV 8.3 fL (7.6-11.3)
[2018-12-17 20:26] LABS: Absolute Lymphocytes (CBC) 0.7 K/uL (0.7-4.9); Basophils % 0.2 % (0-1.3); Hematocrit 27.6 % (36.0-45.0); Lymphocytes % 5.8 % (15.3-44.8); RBC Red Blood Cell Count 2.77 M/uL (3.86-4.86)
[2018-12-17 20:37] LABS: Protime INR 0.96
--- NOTE | 2018-12-17 20:38 | RAD REPORT ---
EXAM DESCRIPTION: RAD - Chest Single View - 12/17/2018 8:24 pm CLINICAL HISTORY: MALAISE Chest pain. COMPARISON: Chest Single View dated 12/04/2018; Chest Single View dated 11/07/2018; Chest Single View d ated 06/19/2018; Chest Single View dated 06/17/2018 FINDINGS: Portable technique limits examination quality. Mild interstitial pulmonary edema is seen. The heart is mildly enlarged in size. Right-sided venous c atheter tip in the SVC. IMPRESSION: Mild CHF versus volume overload pattern.
[2018-12-17 20:45] LABS: ALT/SGPT 22 U/L (12-78); AST/SGOT 19 U/L (15-37); Alkaline Phosphatase 135 U/L (45-117); BUN Blood Urea Nitrogen 44 mg/dL (7-18); Bicarbonate 25 mmol/L (21-32); Bilirubin Direct < 0.1 mg/dL (0-0.2); Bilirubin Total 0.3 mg/dL (0.2-1.0); Creatine Phosphokinase 20 U/L (26-192); Glucose Level 118 mg/dL (74-106); Lipase 14 U/L (73-393); Potassium 3.9 mmol/L (3.5-5.1); Protein, Total 7.1 g/dL (6.4-8.2); Sodium Level 140 mmol/L (136-145); Troponin (Emerg Dept Use Only) < 0.02 ng/mL (0.0-0.045)
--- NOTE | 2018-12-17 20:47 | RAD REPORT ---
EXAM DESCRIPTION: CT - Head Brain Wo Cont - 12/17/2018 8:28 pm CLINICAL HISTORY: CONFUSED Headache, drowsiness, involuntary tremors COMPARISON: Ct Stroke Brain Wo Cont dated 08/31/2017; Ct Stroke Brain Wo Cont dated 08/01/2017 TECHNIQUE: All CT scans are performed using dose optimization technique as appropriate and may inclu de automated exposure control or mA/KV adjustment according to patient size. FINDINGS: No intracranial hemorrhage, hydrocephalus or extra-axial fluid collection.Mild generalized brain atrophy is present with mild periventricular and deep white matter chronic microvascular ische marnie changes.No areas of brain edema or evidence of midline shift. The paranasal sinuses and mastoids are clear. The calvarium is intact. Vertebral atherosclerosis. IMPRESSION: No acute intracranial abnormality.
[2018-12-17 21:03] LABS: Blood Morphology Comment NOT SEEN (NOT SEEN); Platelet Estimate ADEQ; Urine White Blood Cell Casts OK
--- NOTE | 2018-12-17 21:42 | ER ---
Nurse's Notes [facility] Name: Apoorva Christie Age: 68 yrs Sex: Female : 1950 Arrival Date: 12/17/2018 Time: 19:36 Bed 6 Private MD: Diagnosis: Hypoglycemia, unspecified Presentation: 12/17 19:25 Presenting complaint: EMS states: Called to [facility], nursing ea staff reports pt's looked lethargic and low blood sugar, half-way nurse gave 2 of glucagon IM. BGL upon EMS arrival was 80. Pt was sating 80% and was placed on 6 L of O2 per EMS, pt oriented only to self. Transition of care: patient was not received from another setting of care. Onset of symptoms was December 17, 2018. Risk Assessment: Do you want to hurt yourself or someone else? Patient reports no desire to harm self or others. Initial Sepsis Screen: Does the patient meet any 2 criteria? Altered Mental Status. Does the patient have a suspected source of infection? No. Patient's initial sepsis screen is negative. Care prior to arrival: Medication(s) given: Glucagon IM Oxygen administered. via nasal cannula. 19:25 Method Of Arrival: EMS: [facility] ea 19:25 Acuity: AWA 3 ea Triage Assessment: 19:25 General: Appears in no apparent distress. Behavior is drowsy. Pain: Unable to use pain ea scale. FLACC scale score is 0 out of 10. Neuro: Level of Consciousness is responds to verbal stimulus. Oriented to none. Cardiovascular: Patient's skin is warm and dry. Respiratory: Airway is patent Respiratory effort is even, unlabored, Respiratory pattern is regular, symmetrical. Derm: Skin is dry, Skin is pale, Skin temperature is warm. Historical: - Allergies: 20:00 codeine sulfate; ea - Home Meds: 20:00 acetaminophen 325 mg Oral tab 2 tabs every 6 hours for Fever, Pain [Active]; amlodipine ea 10 mg tab [Active]; ascorbic acid (vitamin C) 600 mg TbER twice a day [Active]; aspirin 81 mg Oral chew [Active]; atorvastatin 20 mg Oral tab 1 tab nightly [Active]; carvedilol 12.5 mg Oral tab every 12 hours [Active]; clonidine HCl 0.1 mg Oral tab 1 tab 3 times per day [Active]; clopidogrel 75 mg Oral tab 1 tab once daily [Active]; Depakote ER 500 mg Oral tab 1 tab twice a day [Active]; ferrous sulfate 325 mg (65 mg iron) Oral TbEC twice a day [Active]; Humalog 3 units SQ before meals [Active]; Velphoro 500 mg Oral chew 2 tabs with each meal [Active]; senna 8.6 mg Oral tab 2 tabs once daily [Active]; multivitamin Oral tab daily [Active]; nifedipine 30 mg Oral TbER 1 tab once daily [Active]; Miralax 17 gram Oral pwpk 1 packet once daily [Active]; lorazepam 1 mg Oral tab 1 tab every 8 hours [Active]; trazodone 50 mg Oral tab 1 tab 3 times per day [Active]; Lantus 100 unit/mL Sub-Q soln 35 unit twice a day [Active]; hydralazine 25 mg Oral tab 2 tab three times a day [Active]; Exelon 9.5 mg/24 hr patch Oral [Active]; hydralazine 50 mg Oral tab 1 tab 2 times per day [Active]; tramadol 50 mg Oral tab 1 tab every 4 hours [Active]; - PMHx: 20:00 progressive tremors; Pressure ulcer L ankle and foot; meningitis; Hypertension; Anemia; ea Anxiety; hyperparathyroidism; ESRD; brain blockage; Cirrhosis; CVA; Diabetes - IDDM; Dialyisis ; - Immunization history:: Adult Immunizations up to date. - Social history:: Smoking status: Patient/guardian denies using tobacco. - Ebola Screening: : No symptoms or risks identified at this time. Screenin:25 Abuse screen: Denies threats or abuse. Nutritional screening: No deficits noted. ea Tuberculosis screening: No symptoms or risk factors identified. Fall Risk None identified. Assessment: 19:25 General: Appears in no apparent distress. Behavior is drowsy. Pain: Unable to use pain ea scale. FLACC scale score is 0 out of 10. Neuro: Level of Consciousness is responds to verbal stimulus. Oriented to none. Cardiovascular: Patient's skin is warm and dry. Respiratory: Airway is patent Respiratory effort is even, unlabored, Respiratory pattern is regular, symmetrical. Derm: Skin is pink, warm \T\ dry. Musculoskeletal:. 20:00 Reassessment: Patient and/or family updated on plan of care and expected duration. Pain ea level reassessed. Pt resting with eyes closed, respirations even and unlabored. Chest expansions even and symmetrical. No s/s of pain or discomfort noted at this time. 21:19 Reassessment: Patient given a sandwich, which she is sitting up and eating at this aj1 time. Patient's daughter is at the bedside. 21:30 Reassessment: Patient and/or family updated on plan of care and expected duration. Pain aj1 level reassessed. General: Appears in no apparent distress. comfortable, Behavior is calm, cooperative. Pain: Denies pain. Neuro: Level of Consciousness is awake, alert, obeys commands, Oriented to person, place, time, situation. Cardiovascular: Patient's skin is warm and dry. Respiratory: Airway is patent Respiratory effort is even, unlabored, Respiratory pattern is regular, symmetrical. 22:06 Reassessment: Patient appears in no apparent distress at this time. Patient and/or aj1 family updated on plan of care and expected duration. Pain level reassessed. Patient is alert, oriented x 3, equal unlabored respirations, skin warm/dry/pink. 22:30 Reassessment: Patient appears in no apparent distress at this time. No changes from aj1 previously documented assessment. Patient and/or family updated on plan of care and expected duration. Pain level reassessed. Patient is alert, oriented x 3, equal unlabored respirations, skin warm/dry/pink. 23:28 Reassessment: Patient appears in no apparent distress at this time. No changes from aj1 previously documented assessment. Patient and/or family updated on plan of care and expected duration. Pain level reassessed. Patient is alert, oriented x 3, equal unlabored respirations, skin warm/dry/pink. 23:55 Reassessment: Patient and/or family updated on plan of care and expected duration. Pain ea level reassessed. Pt awake, alert and oriented to self. Transport at facility for transfer back to half-way. Pt taken via wheelchair, tolerating well. Vital Signs: 19:25 BP 117 / 58; Pulse 81; Resp 18; Temp 97; Pulse Ox 88% on R/A; Weight 90.72 kg; Height 5 ea ft. 1 in. (154.94 cm); 20:15 BP 117 / 58; Pulse 82; Resp 16; Pulse Ox 100% on R/A; mt 21:39 BP 148 / 80; Pulse 76; Resp 18; Pulse Ox 100% ; aj1 19:25 Body Mass Index 37.79 (90.72 kg, 154.94 cm) ea 19:25 pt placed on 2 L of O2 ea ED Course: 19:25 Patient has correct armband on for positive identification. Bed in low position. Call ea light in reach. Side rails up X2. 19:36 Patient arrived in ED. ea 19:37 Hector Acuna MD is Attending Physician. gs 19:39 Inserted saline lock: 20 gauge in right forearm, using aseptic technique. wa 19:53 Triage completed. ea 20:05 Radiology exam delayed due to printer repair technician trying to draw blood work at this time. va 20:25 Chest Single View XRAY In Process Unspecified. EDMS 20:26 CT completed. Patient tolerated procedure well. Patient moved to CT via stretcher. Patient moved back from CT. 20:28 CT Head Brain wo Cont In Process Unspecified. EDMS 20:49 Arm band placed on right wrist. Patient placed in an exam room, on a stretcher, on ea pulse oximetry. 22:05 Report given to Della Mccrary RN at [facility]. [facility] 23:28 Report given to SAMAN Barker to assume care until patient is picked up by [address] staff. 23:55 No provider procedures requiring assistance completed. IV discontinued, intact, ea bleeding controlled, No redness/swelling at site. Pressure dressing applied. Administered Medications: 22:07 Not Given (Other Intervention Used): NS 0.9% 1000 ml IV at 1 bolus Per protocol; 1000 aj1 mL bolus Outcome: 21:42 Discharge ordered by . 23:55 Discharged to half-way. Report called to detention nurse ea 23:55 Condition: stable 23:55 Discharge instructions given to half-way, Instructed on discharge instructions, follow up and referral plans. Demonstrated understanding of instructions. 23:56 Patient left the ED. ea Signatures: Dispatcher [employer] Jyothi Malhotra, RN RN aj1 Gaye Nye, Gino Castaneda, Ginger wa Anh Montgomery RN RN ea Starr, Gregory, MD MD
--- NOTE | 2018-12-17 21:43 | EDPHYS ---
Physician Documentation [facility] Name: Apoorva Christie Age: 68 yrs Sex: Female : 1950 Arrival Date: 12/17/2018 Time: 19:36 Bed 6 Private MD: ED Physician Hector Acuna HPI: 12/17 21:35 This 68 yrs old Female presents to ER via EMS with complaints of Low Blood gs Sugar. 21:35 Onset: The symptoms/episode began/occurred acutely, just prior to arrival. Associated gs signs and symptoms: Pertinent negatives: anorexia. The patient has experienced similar episodes in the past, a few times. had dialysis catheter put in went to bed nothing to eat. . Historical: - Allergies: 20:00 codeine sulfate; ea - Home Meds: 20:00 acetaminophen 325 mg Oral tab 2 tabs every 6 hours for Fever, Pain [Active]; amlodipine ea 10 mg tab [Active]; ascorbic acid (vitamin C) 600 mg TbER twice a day [Active]; aspirin 81 mg Oral chew [Active]; atorvastatin 20 mg Oral tab 1 tab nightly [Active]; carvedilol 12.5 mg Oral tab every 12 hours [Active]; clonidine HCl 0.1 mg Oral tab 1 tab 3 times per day [Active]; clopidogrel 75 mg Oral tab 1 tab once daily [Active]; Depakote ER 500 mg Oral tab 1 tab twice a day [Active]; ferrous sulfate 325 mg (65 mg iron) Oral TbEC twice a day [Active]; Humalog 3 units SQ before meals [Active]; Velphoro 500 mg Oral chew 2 tabs with each meal [Active]; senna 8.6 mg Oral tab 2 tabs once daily [Active]; multivitamin Oral tab daily [Active]; nifedipine 30 mg Oral TbER 1 tab once daily [Active]; Miralax 17 gram Oral pwpk 1 packet once daily [Active]; lorazepam 1 mg Oral tab 1 tab every 8 hours [Active]; trazodone 50 mg Oral tab 1 tab 3 times per day [Active]; Lantus 100 unit/mL Sub-Q soln 35 unit twice a day [Active]; hydralazine 25 mg Oral tab 2 tab three times a day [Active]; Exelon 9.5 mg/24 hr patch Oral [Active]; hydralazine 50 mg Oral tab 1 tab 2 times per day [Active]; tramadol 50 mg Oral tab 1 tab every 4 hours [Active]; - PMHx: 20:00 progressive tremors; Pressure ulcer L ankle and foot; meningitis; Hypertension; Anemia; ea Anxiety; hyperparathyroidism; ESRD; brain blockage; Cirrhosis; CVA; Diabetes - IDDM; Dialyisis ; - Immunization history:: Adult Immunizations up to date. - Social history:: Smoking status: Patient/guardian denies using tobacco. - Ebola Screening: : No symptoms or risks identified at this time. ROS: 21:35 All other systems are negative. gs Exam: 21:35 Head/Face: Normocephalic, atraumatic. Eyes: Pupils equal round and reactive to light, gs extra-ocular motions intact. Lids and lashes normal. Conjunctiva and sclera are non-icteric and not injected. Cornea within normal limits. Periorbital areas with no swelling, redness, or edema. ENT: Nares patent. No nasal discharge, no septal abnormalities noted. Tympanic membranes are normal and external auditory canals are clear. Oropharynx with no redness, swelling, or masses, exudates, or evidence of obstruction, uvula midline. Mucous membranes moist. Neck: Trachea midline, no thyromegaly or masses palpated, and no cervical lymphadenopathy. Supple, full range of motion without nuchal rigidity, or vertebral point tenderness. No Meningismus. Chest/axilla: Normal chest wall appearance and motion. Nontender with no deformity. No lesions are appreciated. Cardiovascular: Regular rate and rhythm with a normal S1 and S2. No gallops, murmurs, or rubs. Normal PMI, no JVD. No pulse deficits. Respiratory: Lungs have equal breath sounds bilaterally, clear to auscultation and percussion. No rales, rhonchi or wheezes noted. No increased work of breathing, no retractions or nasal flaring. Abdomen/GI: Soft, non-tender, with normal bowel sounds. No distension or tympany. No guarding or rebound. No evidence of tenderness throughout. Back: No spinal tenderness. No costovertebral tenderness. Full range of motion. Skin: Warm, dry with normal turgor. Normal color with no rashes, no lesions, and no evidence of cellulitis. 21:35 Constitutional: The patient appears lethargic. 21:35 Musculoskeletal/extremity: bandage both feet. 21:35 Neuro: Mentation: slow to respond, Cranial nerves: CN II- XII are normal as tested, Motor: moves all fours. Vital Signs: 19:25 BP 117 / 58; Pulse 81; Resp 18; Temp 97; Pulse Ox 88% on R/A; Weight 90.72 kg; Height 5 ea ft. 1 in. (154.94 cm); 20:15 BP 117 / 58; Pulse 82; Resp 16; Pulse Ox 100% on R/A; mt 21:39 BP 148 / 80; Pulse 76; Resp 18; Pulse Ox 100% ; aj1 19:25 Body Mass Index 37.79 (90.72 kg, 154.94 cm) ea 19:25 pt placed on 2 L of O2 ea MDM: 19:43 Patient medically screened. 21:35 Data reviewed: vital signs, nurses notes. Response to treatment: the patient's symptoms gs have markedly improved after treatment, the patient's condition has returned to base line. ED course: pt back to baseline elevated procal and wbc due to chronic infection on vanco. 12/17 19:44 Order name: Basic Metabolic Panel; Complete Time: 21:33 12/17 19:44 Order name: Blood Culture Adult (2) 12/17 19:44 Order name: CBC with Diff; Complete Time: 21:33 12/17 19:44 Order name: CPK; Complete Time: 21:33 12/17 19:44 Order name: Lactate; Complete Time: 21:33 12/17 19:44 Order name: LFT's; Complete Time: 21:33 12/17 19:44 Order name: CT Head Brain wo Cont; Complete Time: 21:33 12/17 19:44 Order name: Lipase; Complete Time: 21:33 12/17 19:44 Order name: Procalcitonin; Complete Time: 21:33 12/17 19:44 Order name: Protime (+inr); Complete Time: 21:33 12/17 19:44 Order name: Troponin (emerg Dept Use Only); Complete Time: 21:33 12/17 19:44 Order name: Chest Single View XRAY; Complete Time: 21:33 12/17 21:04 Order name: CBC Smear Scan; Complete Time: 21:33 [facility] 12/17 19:44 Order name: Accucheck; Complete Time: 19:45 12/17 19:44 Order name: Cardiac monitoring; Complete Time: 19:45 12/17 19:44 Order name: EKG - Nurse/Tech; Complete Time: 20:07 12/17 19:44 Order name: IV Saline Lock - Large Bore; Complete Time: 19:45 12/17 19:44 Order name: Labs collected and sent; Complete Time: 20:15 12/17 19:44 Order name: O2 Per Protocol; Complete Time: 19:46 12/17 19:44 Order name: O2 Sat Monitoring; Complete Time: 19:46 Administered Medications: 22:07 Not Given (Other Intervention Used): NS 0.9% 1000 ml IV at 1 bolus Per protocol; 1000 aj1 mL bolus Disposition: 12/17/18 21:42 Discharged to Home. Impression: Hypoglycemia, unspecified. - Condition is Stable. - Discharge Instructions: Hypoglycemia, Blood Glucose Monitoring, Adult. - SBAR form, Medication Reconciliation Form, Thank You Letter, Antibiotic Education, Prescription Opioid Use form. - Follow up: Private Physician; When: 1 - 2 days; Reason: Re-evaluation by your physician. Signatures: Dispatcher [facility] Anh Montgomery RN RN ea Starr, Gregory, MD MD gs Johnson, Angela RN aj1 Corrections: (The following items were deleted from the chart) 22:04 19:46 UA MICROSCOPIC+U.LAB.BRZ ordered. [facility] 23:56 21:42 12/17/2018 21:42 Discharged to Home. Impression: Hypoglycemia, unspecified. ea Condition is Stable. Forms are Medication Reconciliation Form, Thank You Letter, Antibiotic Education, Prescription Opioid Use. Follow up: Private Physician; When: 1 - 2 days; Reason: Re-evaluation by your physician.
--- NOTE | 2018-12-18 12:22 | EKG ---
Test Date: 2018-12-17 Test Time: 20:03:09 [employer] Technician: SHELIA MEASUREMENT RESULTS: Intervals: Rate: 80 MT: 158 QRSD: 76 QT: 398 QTc: 459 [place]: P: 59 MT: 158 QRS: 27 T: 127 INTERPRETIVE STATEMENTS: Normal sinus rhythm Cannot rule out Inferior infarct, age undetermined Cannot rule out Anterior infarct, age undetermined T wave abnormality, consider lateral ischemia Abnormal ECG Compared to ECG 12/04/2018 21:03:08 T-wave abnormality now present Possible ischemia now present Myocardial infarct finding still present Electronically Signed On 12-18-18 12:20:36 CDT by Tod Benjamin
== END 2018-12-17 23:56 | disposition home or self-care (01) ==
LOC: ER 19:24
DX: E11.65 Type 2 diabetes mellitus with hyperglycemia (principal); E11.22 Type 2 diabetes mellitus with diabetic chronic kidney disease; I12.0 Hypertensive chronic kidney disease with stage 5 chronic kidney disease or end stage renal disease; N18.6 End stage renal disease; E21.3 Hyperparathyroidism, unspecified; Z99.2 Dependence on renal dialysis; Z79.82 Long term (current) use of aspirin; Z79.4 Long term (current) use of insulin; Z86.73 Personal history of transient ischemic attack (TIA), and cerebral infarction without residual deficits; Z88.5 Allergy status to narcotic agent
CPT/HCPCS: 93005; 87040; 85025; 80048; 36415; 82550; 85610; 80076; 83605; 84484; 83690; 84145; 70450; 71045; J7030; 82962; 99284

== ENCOUNTER 2019-03-09 16:31 | Inpatient (IN) | payer OTHER ==
[2019-03-09] MEDS ORDERED: NA CHLORIDE 0.9% 2,000 ML ONE (17:16)
[2019-03-09] MEDS ORDERED: ACETAMINOPHEN 650MG/RECT SUPP PR ONE (17:16)
[2019-03-09 17:26] LABS: Absolute Lymphocytes (CBC) 1.3 K/uL (0.7-4.9); Basophils % 0.2 % (0-1.3); Lymphocytes % 9.6 % (15.3-44.8); MPV 8.3 fL (7.6-11.3); RBC Red Blood Cell Count 2.97 M/uL (3.86-4.86)
[2019-03-09 17:41] LABS: Albumin 1.6 g/dL (3.4-5.0); Bilirubin Direct 0.2 mg/dL (0-0.2); Bilirubin Total 0.4 mg/dL (0.2-1.0); Protein, Total 7.1 g/dL (6.4-8.2); Troponin (Emerg Dept Use Only) 0.05 ng/mL (0.0-0.045)
--- NOTE | 2019-03-09 17:51 | RAD REPORT ---
EXAM DESCRIPTION: RAD - Foot Right 2 View - 03/09/2019 5:41 pm CLINICAL HISTORY: Fever, chills, foot wound with ulcer COMPARISON: None. FINDINGS: No fracture, dislocation or periosteal reaction. Bones are osteopenic. The fifth middle ph alanx is absent. This appears to be for more section rather than an aggressive or destructive bone pr ocess. IP joint degenerative changes are present. First MTP joint degenerative change present. No air or foreign body in the soft tissues. IMPRESSION: Osteopenic and degenerative bony changes are present. No erosive or destructive process seen to localize an osteomyelitis.
[2019-03-09 17:53] LABS: Potassium 2.7 mmol/L (3.5-5.1)
[2019-03-09] MEDS ORDERED: KCL 20 MEQ/100 mL IVPB 20 MEQ/100 ML BAG IV ONE (17:55)
--- NOTE | 2019-03-09 17:56 | RAD REPORT ---
EXAM DESCRIPTION: RAD - Chest Single View - 03/09/2019 5:41 pm CLINICAL HISTORY: Fever, chills, dialysis patient COMPARISON: December 17, 2018 TECHNIQUE: AP portable chest image was obtained 1723 hours . FINDINGS: Lung volumes are low. No peripheral mass or consolidation. No significant failure or volum e overload. Double-lumen dialysis catheter is in place on the right. Heart and vasculature are normal . No measurable pleural effusion and no pneumothorax. No acute bony abnormality seen. No acute aortic findings suspected. IMPRESSION: No acute cardiopulmonary process. Chest is not significantly different from comparison.
[2019-03-09] MEDS ORDERED: VANCOMYCIN/NS 1 gm 1 GM/250 ML BAG IV ONE (18:00)
[2019-03-09] MEDS ORDERED: CEFEPIME/SWI 2gm 2 GM/20 ML SYR IVP ONE (18:00)
[2019-03-09 18:36] LABS: Protime INR 1.08
--- NOTE | 2019-03-09 19:00 | ER ---
Nurse's Notes [facility] Name: Apoorva Christie Age: 68 yrs Sex: Female : 1950 Arrival Date: 03/09/2019 Time: 16:39 Bed 14 Private MD: Diagnosis: End stage renal disease-on HD;Hypokalemia;Pressure ulcer of ankle;Pressure ulcer-right foot;Fever, unspecified;Sepsis, unspecified organism-EARLY;Elevated white blood cell count;Urinary tract infection, site not specified Presentation: 03/09 16:42 Initial Sepsis Screen: Does the patient meet any 2 criteria? RR > 20 per min. Altered tw2 Mental Status. Yes Does the patient have a suspected source of infection? If YES to both, name of provider notified: Sumit Stout MD Care prior to arrival: pt brought here from [facility]. 16:44 Presenting complaint: EMS states: pt is from [facility], is a resident of [address], they say at [facility] that she was originally 97.0 and then after dialysis temp was 99.0 with chills and is flush, pt has wounds to b/l feet and a decubitus ulcer, [place] would like her seen to rule out Pheum[place]. Transition of care: patient was received from another setting of care (long-term care facility), [place]. Onset of symptoms was March 09, 2019. Risk Assessment: Do you want to hurt yourself or someone else? Patient reports no desire to harm self or others. 16:44 Method Of Arrival: EMS: Health mgmt 16:44 Acuity: AWA 2 tw Historical: - Allergies: 17:27 codeine sulfate; iw - Home Meds: 18:38 acetaminophen 325 mg Oral tab 2 tabs every 6 hours for Fever, Pain [Active]; amlodipine tw2 10 mg tab [Active]; ascorbic acid (vitamin C) 600 mg TbER twice a day [Active]; aspirin 81 mg Oral chew [Active]; atorvastatin 20 mg Oral tab 1 tab nightly [Active]; carvedilol 12.5 mg Oral tab every 12 hours [Active]; clonidine HCl 0.1 mg Oral tab 1 tab 3 times per day [Active]; clopidogrel 75 mg Oral tab 1 tab once daily [Active]; Depakote ER 500 mg Oral tab 1 tab twice a day [Active]; Exelon 9.5 mg/24 hr patch Oral [Active]; ferrous sulfate 325 mg (65 mg iron) Oral TbEC twice a day [Active]; Novolog 100 unit/mL Sub-Q soln [Active]; hydralazine 25 mg Oral tab 2 tab three times a day [Active]; lorazepam 0.5 mg Oral tab 1 tab 3 times per day [Active]; insulin detemir, 100 unit/ml - 35 unit subq in morning [Active]; Humalog 3 units SQ before meals [Active]; hydralazine 50 mg Oral tab 1 tab 2 times per day [Active]; Miralax 17 gram Oral pwpk 1 packet once daily [Active]; lorazepam 1 mg Oral tab 1 tab every 8 hours [Active]; Nifedipine ER 30 mg Oral [Active]; nifedipine 30 mg Oral TbER 1 tab once daily [Active]; Lantus 100 unit/mL Sub-Q soln 35 unit twice a day [Active]; terazosin 2 mg Oral cap 2 caps nightly [Active]; multivitamin Oral tab daily [Active]; trazodone 50 mg Oral tab 1 tab 3 times per day [Active]; tramadol 50 mg Oral tab 1 tab every 4 hours [Active]; Velphoro 500 mg Oral chew 1 tab 3 times per day [Active]; senna 8.6 mg Oral tab 2 tabs once daily [Active]; - PMHx: 18:38 progressive tremors; Pressure ulcer L ankle and foot; meningitis; Hypertension; tw2 hyperparathyroidism; ESRD; Dialyisis ; Anemia; Anxiety; brain blockage; Cirrhosis; CVA; Diabetes - IDDM; - Immunization history:: Adult Immunizations. - Family history:: not pertinent. - Social history:: Smoking status: . - Ebola Screening: : Patient denies travel to an Ebola-affected area in the 21 days before illness onset. Screenin:19 Abuse screen: Denies threats or abuse. Nutritional screening: No deficits noted. tw2 Tuberculosis screening: No symptoms or risk factors identified. Fall Risk Secondary diagnosis (15 points) impaired mobility, CVA. Assessment: 16:42 General: Appears uncomfortable, Behavior is cooperative. Pain: Complains of pain in tw2 buttocks and right foot and left lateral ankle. Neuro: Level of Consciousness is obeys commands, listless, Oriented to person. Cardiovascular: Heart tones S1 S2 Patient's skin is warm and dry. Respiratory: Airway is patent Respiratory effort is even, unlabored, Respiratory pattern is regular, symmetrical, Breath sounds are clear bilaterally. GI: Abdomen is round non-distended, obese, Bowel sounds present X 4 quads. : No signs and/or symptoms were reported regarding the genitourinary system. EENT: No signs and/or symptoms were reported regarding the EENT system. Derm: Wound noted left lateral ankle and right lateral ankle and right heel Wound is unstageable pressure ulcers noted with foul smelling wound dressings removed. Decubitus located on sacrum approximately 7.6 cm to 20 cm is unstageable. Musculoskeletal: Circulation, motion, and sensation intact. 18:00 Reassessment: No changes from previously documented assessment. Patient and/or family tw2 updated on plan of care and expected duration. Pain level reassessed. 19:15 Reassessment: Patient appears in no apparent distress at this time. Patient and/or family updated on plan of care and expected duration. Pain level reassessed. Patient is alert, oriented x 3, equal unlabored respirations, skin warm/dry/pink. 20:21 Reassessment: Patient appears in no apparent distress at this time. No changes from previously documented assessment. Patient and/or family updated on plan of care and expected duration. Pain level reassessed. Patient is alert, oriented x 3, equal unlabored respirations, skin warm/dry/pink. Patient states feeling better. Vital Signs: 16:41 BP 100 / 56; Pulse 89; Resp 20; Temp 99.8(O); Pulse Ox 96% on R/A; tw2 17:38 BP 137 / 54; Pulse 81; Resp 12; Pulse Ox 96% on R/A; tw2 18:04 BP 154 / 56; Pulse 86; Resp 16; Temp 98.8(O); Pulse Ox 100% on R/A; tw2 19:15 BP 168 / 74; Pulse 87; Resp 18; Pulse Ox 99% on R/A; wh 20:21 BP 156 / 62; Pulse 89; Resp 18; Temp 98.4; Pulse Ox 100% ; ED Course: 16:39 Patient arrived in ED. tw2 16:39 Laura Wisdom RN is Primary Nurse. tw2 16:41 Sumit Stout MD is Attending Physician. [facility] 16:42 Arm band placed on. tw2 16:42 Placed in gown. Bed in low position. Call light in reach. Side rails up X2. pt was in tw2 soiled brief, bm noted, pt was cleaned and placed in clean brief at this time. SAMAN Perkins and Angelo Garcia at bedside helping assist in cleaning and turning pt. fellmongery worker on. Pulse ox on. NIBP on. pt covered with sheet at this time d/t elevated temperature. 16:46 Triage completed. tw2 17:10 Initial lab(s) drawn, by me, First set of blood cultures drawn. Inserted saline lock: iw 20 gauge in left wrist, using aseptic technique. Blood collected. 17:12 Wound Culture Sent. tw2 17:26 Inserted saline lock: 22 gauge in right antecubital area, using aseptic technique. iw Blood collected. 17:26 Second set of blood cultures drawn by me. 18:50 Tabby Sanderson MD is Hospitalizing Provider. [facility] 19:03 Report given to SAMAN Kuo. tw2 20:53 No provider procedures requiring assistance completed. Patient admitted, IV remains in place. Administered Medications: 17:15 Drug: Tylenol Suppository 650 mg Route: MD; tw2 18:11 Follow up: Response: No adverse reaction; Temperature is decreased tw2 17:20 Drug: NS 0.9% 1000 ml Route: IV; Rate: 1 bolus; Site: left hand; tw2 20:24 Follow up: Response: No adverse reaction; IV Status: Completed infusion 17:20 Drug: NS 0.9% 1000 ml Route: IV; Rate: 125 ml/hr; Site: right antecubital; tw2 20:25 Follow up: Response: No adverse reaction; IV Status: Infusion continued upon admission 17:55 Drug: Cefepime 2 grams Route: IVPB; Rate: 200 ml/hr; Infused Over: 5 mins; Site: right tw2 antecubital; 18:00 Follow up: Response: No adverse reaction; IV Status: Completed infusion tw2 18:05 Drug: vancoMYCIN 1 grams Route: IVPB; Infused Over: 2 hrs; Site: left hand; tw2 20:25 Follow up: Response: No adverse reaction; IV Status: Completed infusion 18:10 Drug: Potassium Chloride 20 mEq Route: IV; Rate: per protocol; Site: right antecubital; 2 20:24 Follow up: Response: No adverse reaction; IV Status: Completed infusion 19:30 Drug: Zofran 4 mg Route: IVP; Site: right antecubital; 20:23 Follow up: Response: No adverse reaction; Nausea is decreased 19:33 Drug: fentaNYL (PF) 25 mcg {Note: RASS 0.} Route: IVP; Site: right antecubital; 20:23 Follow up: Response: No adverse reaction; Pain is decreased; RASS: Alert and Calm (0) 19:35 Not Given (Duplicate Order): fentaNYL (PF) 25 mcg IVP once; RASS on ADMIN: Combtv4, wh Very Agttd3, Agttd2, Rstlss1, AlertClm0, Drwsy-1, Lt Sdtn-2, Mod Sdtn-3, Dp Sdtn-4, UnArsble-5 Outcome: 18:59 Decision to Hospitalize by Provider. camille 20:53 Admitted to Med/surg accompanied by tech, via stretcher, room 204, with chart, Report called to Owen Yancey RN 20:53 Condition: stable 20:53 Instructed on the need for admit. 20:54 Patient left the ED. Signatures: Sumit Stout MD MD cha Williams, Irene, RN Laura Keita RN RN 2 Shiela Sigala
--- NOTE | 2019-03-09 19:00 | EDPHYS ---
Physician Documentation [facility] Name: Apoorva Christie Age: 68 yrs Sex: Female : 1950 Arrival Date: 03/09/2019 Time: 16:39 Bed 14 Private MD: ED Physician Sumit Stout HPI: 03/09 17:03 This 68 yrs old Female presents to ER via EMS with complaints of Fever. camille 17:03 The patient reports fever, that was measured at 99.8 degrees Fahrenheit. Onset: The camille symptoms/episode began/occurred 2 day(s) ago. Modifying factors: there are no obvious modifying factors. Associated signs and symptoms: Pertinent positives: altered mental status,\E\ chills. Severity of symptoms: At their worst the symptoms were moderate in the emergency department the symptoms are unchanged. It is unknown whether or not the patient has had similar symptoms in the past. Historical: - Allergies: 17:27 codeine sulfate; iw - Home Meds: 18:38 acetaminophen 325 mg Oral tab 2 tabs every 6 hours for Fever, Pain [Active]; amlodipine tw2 10 mg tab [Active]; ascorbic acid (vitamin C) 600 mg TbER twice a day [Active]; aspirin 81 mg Oral chew [Active]; atorvastatin 20 mg Oral tab 1 tab nightly [Active]; carvedilol 12.5 mg Oral tab every 12 hours [Active]; clonidine HCl 0.1 mg Oral tab 1 tab 3 times per day [Active]; clopidogrel 75 mg Oral tab 1 tab once daily [Active]; Depakote ER 500 mg Oral tab 1 tab twice a day [Active]; Exelon 9.5 mg/24 hr patch Oral [Active]; ferrous sulfate 325 mg (65 mg iron) Oral TbEC twice a day [Active]; Novolog 100 unit/mL Sub-Q soln [Active]; hydralazine 25 mg Oral tab 2 tab three times a day [Active]; lorazepam 0.5 mg Oral tab 1 tab 3 times per day [Active]; insulin detemir, 100 unit/ml - 35 unit subq in morning [Active]; Humalog 3 units SQ before meals [Active]; hydralazine 50 mg Oral tab 1 tab 2 times per day [Active]; Miralax 17 gram Oral pwpk 1 packet once daily [Active]; lorazepam 1 mg Oral tab 1 tab every 8 hours [Active]; Nifedipine ER 30 mg Oral [Active]; nifedipine 30 mg Oral TbER 1 tab once daily [Active]; Lantus 100 unit/mL Sub-Q soln 35 unit twice a day [Active]; terazosin 2 mg Oral cap 2 caps nightly [Active]; multivitamin Oral tab daily [Active]; trazodone 50 mg Oral tab 1 tab 3 times per day [Active]; tramadol 50 mg Oral tab 1 tab every 4 hours [Active]; Velphoro 500 mg Oral chew 1 tab 3 times per day [Active]; senna 8.6 mg Oral tab 2 tabs once daily [Active]; - PMHx: 18:38 progressive tremors; Pressure ulcer L ankle and foot; meningitis; Hypertension; tw2 hyperparathyroidism; ESRD; Dialyisis ; Anemia; Anxiety; brain blockage; Cirrhosis; CVA; Diabetes - IDDM; - Immunization history:: Adult Immunizations. - Family history:: not pertinent. - Social history:: Smoking status: . - Ebola Screening: : Patient denies travel to an Ebola-affected area in the 21 days before illness onset. ROS: 17:05 Eyes: Negative for injury, pain, redness, and discharge, ENT: Negative for injury, camille pain, and discharge, Neck: Negative for injury, pain, and swelling, Abdomen/GI: Negative for abdominal pain, nausea, vomiting, diarrhea, and constipation, Back: Negative for injury and pain, : Negative for injury, bleeding, discharge, and swelling, Neuro: Negative for headache, weakness, numbness, tingling, and seizure, Psych: Negative for depression, anxiety, suicide ideation, homicidal ideation, and hallucinations, Allergy/Immunology: Negative for hives, rash, and allergies, Endocrine: Negative for neck swelling, polydipsia, polyuria, polyphagia, and marked weight changes. 17:05 MS/extremity: Positive for decreased range of motion, pain, swelling, tenderness, of the right foot and left lateral ankle. Exam: 17:05 Head/Face: Normocephalic, atraumatic. Eyes: Pupils equal round and reactive to light, camille extra-ocular motions intact. Lids and lashes normal. Conjunctiva and sclera are non-icteric and not injected. Cornea within normal limits. Periorbital areas with no swelling, redness, or edema. ENT: Nares patent. No nasal discharge, no septal abnormalities noted. Tympanic membranes are normal and external auditory canals are clear. Oropharynx with no redness, swelling, or masses, exudates, or evidence of obstruction, uvula midline. Mucous membranes moist. Cardiovascular: Regular rate and rhythm with a normal S1 and S2. No gallops, murmurs, or rubs. Normal PMI, no JVD. No pulse deficits. 17:05 Cardiovascular: Rate: normal, Rhythm: regular, Pulses: Pulses are 4+ in bilateral radial, brachial, femoral, popliteal, posterior tibial and and dorsalis pedis arteries.. Heart sounds: normal, Edema: is not appreciated, JVD: is not appreciated. 17:05 Musculoskeletal/extremity: ROM: full passive range of motion, limited active range of motion, Circulation is intact in all extremities. Compartment Syndrome exam of affected extremity: is normal. DVT Exam: no swelling, negative Homans' sign noted on exam, no appreciated bluish discoloration, pain, tenderness, erythema, increased warmth, that is moderate, of the right leg, of the left leg, of the right foot and left leg. Vital Signs: 16:41 BP 100 / 56; Pulse 89; Resp 20; Temp 99.8(O); Pulse Ox 96% on R/A; tw2 17:38 BP 137 / 54; Pulse 81; Resp 12; Pulse Ox 96% on R/A; tw2 18:04 BP 154 / 56; Pulse 86; Resp 16; Temp 98.8(O); Pulse Ox 100% on R/A; tw2 19:15 BP 168 / 74; Pulse 87; Resp 18; Pulse Ox 99% on R/A; wh 20:21 BP 156 / 62; Pulse 89; Resp 18; Temp 98.4; Pulse Ox 100% ; wh MDM: 16:41 Patient medically screened. [facility] 17:10 Data reviewed: vital signs, nurses notes, lab test result(s), EKG, radiologic studies, camille plain films. 03/09 16:59 Order name: Basic Metabolic Panel [facility] 03/09 16:59 Order name: CBC with Diff [facility] 03/09 16:59 Order name: LFT's [facility] 03/09 16:59 Order name: Magnesium [facility] 03/09 16:59 Order name: NT PRO-BNP [facility] 03/09 16:59 Order name: PT-INR [facility] 03/09 16:59 Order name: Troponin (emerg Dept Use Only) [facility] 03/09 16:59 Order name: Lipase [facility] 03/09 16:59 Order name: Urine Culture [facility] 03/09 16:59 Order name: Blood Culture Adult (2) [facility] 03/09 16:59 Order name: Lactate [facility] 03/09 16:59 Order name: Type And Screen [facility] 03/09 16:59 Order name: Wound Culture [facility] 03/09 17:04 Order name: Urine Dipstick--Ancillary (enter results) 03/09 16:59 Order name: XRAY Chest (1 view) [facility] 03/09 16:59 Order name: Foot Right 2 View XRAY [facility] 03/09 17:27 Order name: CBC with Automated Diff; Complete Time: 17:51 EDMS 03/09 17:39 Order name: Lactate; Complete Time: 17:51 EDMS 03/09 17:46 Order name: Glucose, Ancillary Testing; Complete Time: 17:51 EDMS 03/09 17:53 Order name: Basic Metabolic Panel; Complete Time: 18:18 EDMS 03/09 17:53 Order name: Liver (Hepatic) Function; Complete Time: 18:18 EDMS 03/09 17:53 Order name: Troponin (Emerg Dept Use Only); Complete Time: 18:18 EDMS 03/09 17:53 Order name: NT PRO-BNP; Complete Time: 18:18 EDMS 03/09 17:53 Order name: Magnesium; Complete Time: 18:18 EDMA 03/09 17:53 Order name: Lipase; Complete Time: 18:18 EDMA 03/09 18:02 Order name: Type and Screen; Complete Time: 18:18 EDMS 03/09 18:36 Order name: Protime (+INR); Complete Time: 19:17 EDMS 03/09 18:38 Order name: Influenza Screen (a \T\ B) [facility] 03/09 19:11 Order name: Influenza Screen (A ; Complete Time: 19:17 EDMA 03/09 20:29 Order name: Urine Dipstick-Ancillary [facility] 03/09 16:59 Order name: EKG; Complete Time: 17:01 [facility] 03/09 16:59 Order name: Cardiac monitoring; Complete Time: 17:13 [facility] 03/09 16:59 Order name: EKG - Nurse/Tech; Complete Time: 17:13 [facility] 03/09 16:59 Order name: IV Saline Lock; Complete Time: 17:13 [facility] 03/09 16:59 Order name: Labs collected and sent; Complete Time: 17:13 [facility] 03/09 16:59 Order name: O2 Per Protocol; Complete Time: 17:13 [facility] 03/09 16:59 Order name: O2 Sat Monitoring; Complete Time: 17:13 [facility] 03/09 16:59 Order name: Urine Dipstick-Ancillary (obtain specimen); Complete Time: 17:13 [facility] 03/09 16:59 Order name: Wound dressing; Complete Time: 17:12 [facility] 03/09 17:13 Order name: Straight Cath - Urine; Complete Time: 17:13 tw2 03/09 18:23 Order name: RAD; Complete Time: 18:36 EDMS 03/09 18:23 Order name: RAD; Complete Time: 18:36 EDMS Administered Medications: 17:15 Drug: Tylenol Suppository 650 mg Route: MN; tw2 18:11 Follow up: Response: No adverse reaction; Temperature is decreased tw2 17:20 Drug: NS 0.9% 1000 ml Route: IV; Rate: 1 bolus; Site: left hand; tw2 20:24 Follow up: Response: No adverse reaction; IV Status: Completed infusion 17:20 Drug: NS 0.9% 1000 ml Route: IV; Rate: 125 ml/hr; Site: right antecubital; tw2 20:25 Follow up: Response: No adverse reaction; IV Status: Infusion continued upon admission 17:55 Drug: Cefepime 2 grams Route: IVPB; Rate: 200 ml/hr; Infused Over: 5 mins; Site: right tw2 antecubital; 18:00 Follow up: Response: No adverse reaction; IV Status: Completed infusion tw2 18:05 Drug: vancoMYCIN 1 grams Route: IVPB; Infused Over: 2 hrs; Site: left hand; tw2 20:25 Follow up: Response: No adverse reaction; IV Status: Completed infusion 18:10 Drug: Potassium Chloride 20 mEq Route: IV; Rate: per protocol; Site: right antecubital; tw2 20:24 Follow up: Response: No adverse reaction; IV Status: Completed infusion 19:30 Drug: Zofran 4 mg Route: IVP; Site: right antecubital; 20:23 Follow up: Response: No adverse reaction; Nausea is decreased 19:33 Drug: fentaNYL (PF) 25 mcg {Note: RASS 0.} Route: IVP; Site: right antecubital; 20:23 Follow up: Response: No adverse reaction; Pain is decreased; RASS: Alert and Calm (0) 19:35 Not Given (Duplicate Order): fentaNYL (PF) 25 mcg IVP once; RASS on ADMIN: Combtv4, wh Very Agttd3, Agttd2, Rstlss1, AlertClm0, Drwsy-1, Lt Sdtn-2, Mod Sdtn-3, Dp Sdtn-4, UnArsble-5 Disposition: 03/09/19 18:59 Hospitalization ordered by Tabby Sanderson for Inpatient Admission. Preliminary diagnosis are End stage renal disease - on HD, Hypokalemia, Pressure ulcer of ankle, Pressure ulcer - right foot, Fever, unspecified, Sepsis, unspecified organism - EARLY, Elevated white blood cell count, Urinary tract infection, site not specified. - Bed requested for Telemetry/MedSurg (Inpatient). - Status is Inpatient Admission. - Condition is Fair. - Problem is new. - Symptoms have improved. UTI on Admission? Yes Signatures: Dispatcher [employer] Maribel Andre RN Sumit Frost MD MD cha Williams, Irene, RN RN Laura Wisdom RN RN [facility] Shiela Sigala Corrections: (The following items were deleted from the chart) 19:52 18:59 Hospitalization Ordered by Tabby Sanderson MD for Inpatient Admission. Preliminary diagnosis is End stage renal disease - on HD; Hypokalemia; Pressure ulcer of ankle; Pressure ulcer - right foot; Fever, unspecified; Sepsis, unspecified organism - EARLY; Elevated white blood cell count; Urinary tract infection, site not specified. Bed requested for Telemetry/MedSurg (Inpatient). Status is Inpatient Admission. Condition is Fair. Problem is new. Symptoms have improved. UTI on Admission? Yes. camille 20:54 19:52 03/09/2019 18:59 Hospitalization Ordered by Tabby Sanderson MD for Inpatient Admission. Preliminary diagnosis is End stage renal disease - on HD; Hypokalemia; Pressure ulcer of ankle; Pressure ulcer - right foot; Fever, unspecified; Sepsis, unspecified organism - EARLY; Elevated white blood cell count; Urinary tract infection, site not specified. Bed requested for Telemetry/MedSurg (Inpatient). Status is Inpatient Admission. Condition is Fair. Problem is new. Symptoms have improved. UTI on Admission? Yes. dw
[2019-03-09] MEDS ORDERED: ONDANSETRON 4 MG/2 ML VIAL ONE (19:28)
[2019-03-09] MEDS ORDERED: FENTANYL CITR 100 MCG/2 ML ONE (19:28)
[2019-03-09] MEDS ORDERED: ONDANSETRON 4 MG/2 ML VIAL IV PRN (19:44)
[2019-03-09] MEDS ORDERED: ACETAMINOPHEN 500 MG TAB PO PRN (19:44)
[2019-03-09 20:28] LABS: Urine Blood 2+ (NEG); Urine Glucose NEGATIVE (NEG); Urine Protein 2+ (NEG)
[2019-03-09 23:34] VITALS: BMI 26.7
[2019-03-10 05:50] LABS: Absolute Lymphocytes (CBC) 1.2 K/uL (0.7-4.9); Basophils % 0.4 % (0-1.3); Hematocrit 29.8 % (36.0-45.0); Lymphocytes % 9.1 % (15.3-44.8); MPV 8.5 fL (7.6-11.3); RBC Red Blood Cell Count 3.03 M/uL (3.86-4.86)
[2019-03-10 06:01] LABS: Albumin 1.6 g/dL (3.4-5.0); Bilirubin Total 0.4 mg/dL (0.2-1.0); Potassium 3.5 mmol/L (3.5-5.1); Protein, Total 6.8 g/dL (6.4-8.2)
[2019-03-10] MEDS ORDERED: ACETAMINOPHEN 325 MG TABLET PO PRN (07:14)
[2019-03-10] MEDS ORDERED: PROTEIN HYDROLYS PO SCH (07:15)
[2019-03-10] MEDS ORDERED: AMINO ACIDS PO SCH (07:15)
--- NOTE | 2019-03-10 07:24 | P.HP ---
Certification for Inpatient Patient admitted to: Inpatient With expected LOS: >2 Midnights Patient will require the following post-hospital care: None Practitioner: I am a practitioner with admitting privileges, knowledge of patient current condition, hospital course, and medical plan of care. Services: Services provided to patient in accordance with Admission requirements found in Title 42 Section 412.3 of the Code of Federal Regulations Patient History Date of Service: 03/09/19 Reason for admission: Fever, altered mentation, end-stage renal disease History of Present Illness: Patient is a 68-year-old female who came to the hospital from [facility] dialysis with fever. Patient has end-stage renal disease and goes to dialysis on Monday , , and Monday. She had been doing well clinically up until getting to dialysis. During dialysis she started having some chills and fevers so she was sent to the hospital. Patient has some foot sores as well as a decubitus ulcer. Patient's initial workup was unremarkable except for low blood pressure of 100/70. The blood pressure has improved. Otherwise, patient is not really able to give me much of a history. Patient appears to have a severe nutritional deficiencies. Patient has had a stroke as well as seizures. Patient has multiple factorial reasons for altered mentation. We will admit her to the hospital and further work her up for possible infection as well as neurologic etiology of her altered mental status. Patient is bed-bound at the nursing facility and her daughter is her IZZYA. Allergies codeine Allergy (Verified 08/31/17 22:20) Shortness of breath Home Medications: Aspirin 81 mg PO DAILY 01/01/18 Atorvastatin Calcium 20 mg PO BEDTIME 01/01/18 Clopidogrel Bisulfate [Plavix*] 75 mg PO DAILY 01/01/18 Divalproex Sodium [Depakote] 500 mg PO BID 06/15/18 Ferrous Sulfate [Iron] 325 mg PO BID 06/15/18 Hydralazine HCl [Apresoline] 50 mg PO TID 06/15/18 Insulin Lispro [Humalog Kwikpen U-100] 3 unit SQ AC 06/15/18 Lorazepam [Ativan] 1 mg PO SEECOM 06/15/18 Polyethylene Glycol 3350 [Glycolax] 17 gm PO DAILY 06/15/18 Sennosides 17.2 mg PO DAILY 06/15/18 Terazosin HCl 4 mg PO BEDTIME 06/15/18 Acetaminophen [Tylenol] 650 mg PO Q6H PRN 12/04/18 Ascorbic Acid [Vitamin C] 500 mg PO BID 12/04/18 Amino Acids/Protein Hydrolys [Liquacel 100 Liquid Packet] 30 ml PO SEECOM Arginine/Ascorbate Sod/Radha AC [Arginaid Powder] 1 each PO BID 03/09/19 Calcium Carbonate [Tums Regular] 2 tab PO TIDWM 03/09/19 Calcium Carbonate [Tums Regular] 500 mg PO PRN PRN 03/09/19 Carvedilol [Coreg] 12.5 mg PO BID 03/09/19 Duloxetine HCl [Cymbalta] 60 mg PO DAILY 03/09/19 Ergocalciferol (Vitamin D2) [Vitamin D2] 50,000 unit PO Q7D 03/09/19 Insulin Glargine,Hum.rec.anlog [Basaglar Kwikpen U-100] 20 unit SQ BEDTIME 03/09 Tramadol HCl [Ultram] 50 mg PO BID 03/09/19 Tramadol HCl [Ultram] 50 mg PO Q12HP PRN 03/09/19 Trazodone HCl 50 mg PO BEDTIME 03/09/19 Zinc Sulfate [Zinc Sulfate*] 220 mg PO DAILY 03/09/19 - Past Medical/Surgical History Has patient received pneumonia vaccine in the past: Yes Diabetic: Yes -: HTN -: DM -: Stroke (JUNE 2017) -: Seizures -: Progressive Tremors -: Sweets Syndrome 2001 -: Stroke (2005) -: cholecystectomy -: Knee surgery -: Hysterectomy -: Bunionectomy Right Side -: Carptal Tunnel Surgery Right Side -: left ankle sx - Family History Mother Medical History: Cancer Father Notes: Heart Attack Sister Medical History: Diabetes Brothers Medical History: Diabetes Notes: Heart Attack - Social History Smoking Status: Never smoker Alcohol use: No CD- Drugs: No Caffeine use: No Place of Residence: [place]Way Review of Systems 10-point ROS is otherwise unremarkable Physical Examination - Vital Signs Temperature: 97.8 F Blood Pressure: 138/60 Pulse: 80 Respirations: 16 Pulse Ox (%): 94 - Physical Exam General: In no apparent distress, Confused, Other (Lethargic) HEENT: Atraumatic, PERRLA, Mucous membr. moist/pink, EOMI, Sclerae nonicteric Neck: Supple, 2+ carotid pulse no bruit, No LAD, Without JVD or thyroid abnormality Respiratory: Clear to auscultation bilaterally, Normal air movement Cardiovascular: Regular rate/rhythm, Normal S1 S2, Systolic murmur Gastrointestinal: Normal bowel sounds, Soft and benign, Non-distended, No tenderness Musculoskeletal: Contractures Integumentary: Diabetic ulcer (Diabetic foot ulcers bilaterally and ankle wound) , Pressure ulcer Neurological: Sensation intact, Cranial nerves 3-12 intact, Abnormal gait, Abnormal speech, Abnormal strength, Abnormal tone, Abnormal affect Lymphatics: No axilla or inguinal lymphadenopathy - Studies Laboratory Data (last 24 hrs) 03/09/19 18:25: PT 12.7 H, INR 1.08 03/09/19 17:10: WBC 13.6 H D, Hgb 9.9 L, Hct 29.0 L, Plt Count 327 D 03/09/19 17:10: Sodium 134 L, Potassium 2.7 L*, BUN 36 H D, Creatinine 1.52 H D , Glucose 202 H, Magnesium 2.0 D, Total Bilirubin 0.4, AST 34, ALT 20, Alkaline Phosphatase 135 H, Lipase 18 L Microbiology Data (last 24 hrs): 03/09/19 18:47 Nasopharnyx Influenza Type A Antigen Screen - Final 03/09/19 18:47 Nasopharnyx Influenza Type B Antigen Screen - Final Assessment & Plan - Problems (Diagnosis) (1) Altered mental status Onset Date: 08/07/17 Current Visit: No Status: Acute (2) Diabetic foot ulcers Current Visit: Yes Status: Acute (3) Essential hypertension Onset Date: 01/02/18 Current Visit: No Status: Acute (4) Hyperlipidemia Onset Date: 08/07/17 Current Visit: No Status: Acute (5) Stage II pressure ulcer of buttock Onset Date: 06/15/18 Current Visit: No Status: Acute (6) ESRD (end stage renal disease) on dialysis Onset Date: 06/15/18 Current Visit: No Status: Chronic (7) History of stroke Onset Date: 08/07/17 Current Visit: No Status: Chronic (8) Displaced bimalleolar fracture of left ankle Onset Date: 01/02/18 Current Visit: No Status: Resolved Qualifiers: Encounter type: sequela Fracture type: closed Qualified Code(s): S82.842S - Displaced bimalleolar fracture of left lower leg, sequela (9) History of seizures Current Visit: Yes Status: Acute - Plan Plan: 1. Neuro checks every 4 hr 2. IV antibiotics 3. Urine and blood culture results 4. Wound cultures 5. Surgery consultation 6. Nephrology consultation 7. Strict blood pressure and blood sugar control 8. Check thyroid studies and cortisol levels 9. Resume antiplatelet therapy and antiepileptics 10. GI and DVT prophylaxis Discharge Plan: Half-Way Plan to discharge in: Greater than 2 days - Advance Directives Does patient have a Living Will: Yes Does patient have a Durable POA for Healthcare: Yes - Code Status/Comfort Care Code Status Assessed: Yes Code Status: Full Code Critical Care: No Time Spent Managing PTS Care (In Minutes): 45
[2019-03-10] MEDS ORDERED: ARGININE PO SCH (09:00)
[2019-03-10] MEDS ORDERED: DRISDOL (VITAMIN D=ERGOCALCIFEROL) 50000 UNIT CAP PO SCH (09:00)
[2019-03-10] MEDS ORDERED: ASCORBATE SOD PO SCH (09:00)
[2019-03-10] MEDS ORDERED: VITE AC PO SCH (09:00)
[2019-03-10] MEDS ORDERED: POLYETHYLENE GLYCOL 17 GM PO SCH (09:00)
[2019-03-10] MEDS ORDERED: HOME MED 1 EA UNK (Duloxetine Hcl [Cymbalta] 60 MG) PO SCH (09:00)
[2019-03-10] MEDS ORDERED: HOME MED 1 EA UNK (Hydralazine Hcl [Apresoline] 50 MG) PO SCH (09:00)
[2019-03-10] MEDS: POLYETHYL GLY 3350 17 GM/DOSE PO SCH (09:51)
--- NOTE | 2019-03-10 09:51 | RAD REPORT ---
EXAM DESCRIPTION: CT - Head Brain Wo Cont - 03/10/2019 9:27 am CLINICAL HISTORY: Alteration of awareness/confusion COMPARISON: 11/2018 TECHNIQUE: Computed axial tomography of the head was obtained. IV contrast was not requested. All CT scans are performed using dose optimization technique as appropriate and may include automated exposure control or mA/KV adjustment according to patient size. FINDINGS: An intracranial bleed is not seen . The ventricles are normal in caliber. No extra-axial fluid collection is noted. Cerebral atrophy is seen Mild to moderate low-density areas within periventricular, deep and subcortical white matter likely r epresent ischemic changes secondary to small vessel disease. Fluid within the sinuses/ mastoids is not seen. IMPRESSION: No acute intracranial abnormality is seen. If patient's symptoms persist MRI of the bra in would be recommended.
[2019-03-10] MEDS ORDERED: Pharmacy Consult 1 EA XX PRN (10:13)
--- NOTE | 2019-03-10 10:16 | P.PN ---
Subjective Date of Service: 03/10/19 Chief Complaint: Fever, altered mentation, end-stage renal disease Patient is still altered minimally responsive family members at bedside very poor baseline functioning minimal communication does not ambulate felt a pull decubitus ulcers Review of Systems is unable to be obtained Physical Examination - Vital Signs Temperature: 98.3 F Blood Pressure: 153/67 Pulse: 81 Respirations: 18 Pulse Ox (%): 95 - Physical Exam General: Confused HEENT: Atraumatic Neck: Supple Respiratory: Clear to auscultation bilaterally Cardiovascular: Normal S1 S2 Musculoskeletal: Other (Multiple decubitus ulcers) - Studies Laboratory Data (last 24 hrs) 03/09/19 18:25: PT 12.7 H, INR 1.08 03/09/19 17:10: WBC 13.6 H D, Hgb 9.9 L, Hct 29.0 L, Plt Count 327 D 03/09/19 17:10: Sodium 134 L, Potassium 2.7 L*, BUN 36 H D, Creatinine 1.52 H D , Glucose 202 H, Magnesium 2.0 D, Total Bilirubin 0.4, AST 34, ALT 20, Alkaline Phosphatase 135 H, Lipase 18 L Microbiology Data (last 24 hrs): 03/09/19 18:47 Nasopharnyx Influenza Type A Antigen Screen - Final 03/09/19 18:47 Nasopharnyx Influenza Type B Antigen Screen - Final Assessment & Plan - Problems (Diagnosis) (1) Diabetic foot ulcers Current Visit: Yes Status: Acute Plan: Patient is 68 years of age has multiple decubitus ulcers on her heels and sacrum seen by general surgery may need to bright meant but cultures also positive continue with vancomycin and cefepime white count elevated probably sepsis induced altered mental function labs reviewed hypokalemia corrected on dialysis Qualifiers: Diabetic foot ulcer location: heel Diabetes mellitus type: type 2 Non- pressure ulcer stage: unspecified non-pressure ulcer stage
[2019-03-10] MEDS: CALCIUM CARBONATE CHEW 500MG TAB PO SCH ×3 (10:52→18:05)
[2019-03-10] MEDS: SENOSIDES 8.6 MG TAB PO SCH (10:54)
[2019-03-10] MEDS: DULOXETINE 30 MG CAP PO SCH (10:54)
[2019-03-10] MEDS: ZINC SULFATE 220 MG CAP PO SCH (10:55)
[2019-03-10] MEDS: CLOPIDOGREL 75 MG TABLET PO SCH (10:55)
[2019-03-10] MEDS: ASCORBIC ACID 500 MG TABLET PO SCH ×2 (10:55→21:01)
[2019-03-10] MEDS: carvediloL 12.5 MG TAB PO SCH ×2 (10:56→21:02)
[2019-03-10] MEDS: HYDRALAZINE HCL 25 MG TABLET PO SCH ×3 (10:56→21:02)
[2019-03-10] MEDS: ASPIRIN 81 MG CHEWABLE TABLET PO SCH (10:57)
[2019-03-10] MEDS: FERROUS SULFATE 325 MG TAB PO SCH ×2 (10:57→21:02)
[2019-03-10] MEDS ORDERED: VANCOMYCIN 500 MG in NA CHLORIDE 0.9% 100 ML IVPB SCH (11:00)
[2019-03-10] MEDS: DIVALPROEX DR 500MG TAB PO SCH ×2 (11:04→21:02)
[2019-03-10] MEDS: TRAMADOL HCL 50 MG TAB PO PRN (11:04)
[2019-03-10] MEDS ORDERED: CEFEPIME/SWI 1gm 10 ML IVP SCH (11:45)
[2019-03-10] MEDS ORDERED: VANCOMYCIN 1.5 GM in NA CHLORIDE 0.9% 500 ML IVPB ONE (12:00)
--- NOTE | 2019-03-10 12:45 | EKG ---
Test Date: 2019-03-09 Test Time: 17:07:24 Negative Turner Apprentice: MEASUREMENT RESULTS: Intervals: Rate: 83 AR: 156 QRSD: 82 QT: 370 QTc: 434 [place]: P: 50 AR: 156 QRS: 29 T: 41 INTERPRETIVE STATEMENTS: Sinus rhythm with premature atrial complexes Nonspecific ST abnormality Abnormal ECG Compared to ECG 12/17/2018 20:03:09 Atrial premature complex(es) now present ST (T wave) deviation now present Myocardial infarct finding no longer present T-wave abnormality no longer present Possible ischemia no longer present Electronically Signed On 03-10-19 12:44:31 VALUATION MANAGER by Andrade Titus
--- NOTE | 2019-03-10 15:09 | CON ---
Date of Consultation: 03/10/2019 Brief History Of Present Illness: Patient is a 68-year-old female with a history of chronic dialysis who came from the [facility] recently. She gets dialysis Monday, , . She had been doing clinically well up to that point and had chronic decubitus ulcer on her s acrum as well as wounds to bilateral lower feet, one on the right heel and one on the left lateral do rsal aspect of her foot. She had some episodes by report, episode of fever following dialysis and as such she was brought by the dialysis center for the above-stated complaints. DICTATION ENDS HERE KARLIE/TASHA Voice ID: [id number] Report ID: [id number]
--- NOTE | 2019-03-10 15:38 | CON ---
Date of Consultation: 03/10/2019 Brief History Of Present Illness: The patient is a 68-year-old female who came from [facility]. She was in her normal state of health and has a chronic decubitus ulcer on her sacrum as well as a dry eschar to the right heel and a chronic open wound to the dorsal aspect of the left foot. She had been having these issues for some time. The wound on the left foot was on the lateral aspect, dorsal aspect of the foot. She has not been getting any specific wound care for this and the family explained that these continued to be smoldering infections that she has had at the [facility]. She was at [facility] and subsequent to her dialysis spiked a fever and as such, she was brought to the emergency room with the above-stated complaint. The patient is a poor historian and was unable to give much information, but she did have some evidence of infection at the initial onset. She has a history of stroke and seizures as well and was admitted in the hospital at that time. Past Medical History: Significant for hypertension, diabetes, seizures in June 2007, progressive tremors, Sweet syndrome in 2001, stroke in 2005. Past Surgical History: Cholecystectomy, knee surgery, hysterectomy, bunionectomy, carpal tunnel surgery on the right, left ankle surgery. Allergies: CODEINE. Home Medications: Aspirin, Plavix, atorvastatin, Depakote, iron, Apresoline, Humalog, Ativan, Glycolax, sennosides, terazosin, Tylenol, vitamin C, LiquaCel, Arginaid powder, Tums, Coreg, Cymbalta, vitamin D, Ultram, insulin, trazodone, zinc. Social History: She denies smoking, alcohol, recreational drug use, but she is a poor historian. Review of Systems: She is a poor historian and as such I am unable to get a significant accurate review of systems in my opinion. Physical Examination: Vital Signs: At the time of my examination, however, her BMI is 26, blood pressure 153/67, pulse 81, respiratory rate 18, temperature 98.3. General: She is awake and alert, but she is a poor historian. She recognizes her family members in the room and talks with them in a normal fashion, but she has poor insight into her medical history and as lethargic during most of my examination. HEENT: She is otherwise normocephalic. Chest: Normal expansion and excursion. Extremities: Focused examination of the extremities. Right lower extremity, she has a heel dry eschar, which appears to be a pressure type ulcer. To the tip of the great toe, she has a dry eschar on the left foot as well as an open draining wound with necrosis on the left lateral aspect, dorsal aspect of the foot approximately 5.5 cm in size x 3.5 cm with no undermining. Her sacral decubitus appears to be stage III/stage IV sacral decubitus ulcer with necrosis here as well. It is relatively dry at this time. There is no active drainable collections at this point and no chandan necrotic tissue requiring debridement at this time. However, undermining is difficult to assess as patient is uncomfortable during the exam. Laboratory Data: White blood count 13.6, hemoglobin 9.6, hematocrit of 29.8, platelet count is 286, neutrophils 80%. PT 12.7, INR 1.08. Sodium 135, potassium 3.5, chloride 101, carbon dioxide 24, BUN 50, creatinine 2.06, glucose is 191. Her lactic acid is 1.4, on admission. Her lipase is 18, on admission. Imaging: She had imaging performed, which included a chest x-ray officially read as no acute cardiopulmonary process. She had a foot x-ray, which officially read as osteopenic and degenerative bony changes are present. No erosive or destructive process seen to localize an osteomyelitis of the right foot on the 2 view. She additionally had a head CT performed, which officially read as no acute intracranial abnormality seen. Assessment And Plan: This is a 68-year-old female with multiple wounds of the sacrum, bilateral feet as described. We will initiate as the patient has had diet today with Santyl and damp-to-dry gauze as well as Xeroform gentle wraps and elevation. I will reassess for surgical debridement of all these wounds in the morning. I think the patient will likely require surgical intervention. I have explained this to the family as well as the patient, which might include debridement of the areas. They agreed to proceed as indicated. Continue medical management, antibiotics, and treatment, and localized wound care as described. KARLIE/TASHA Voice ID: [id number] Report ID: [id number]
[2019-03-10] MEDS ORDERED: CEFEPIME 1 GM/VIAL IV SCH (17:00)
--- NOTE | 2019-03-10 20:45 | P.PN ---
Subjective Date of Service: 03/10/19 Chief Complaint: Fever, altered mentation, end-stage renal disease Physical Examination - Vital Signs Temperature: 97.3 F Blood Pressure: 117/58 Pulse: 59 Respirations: 17 Pulse Ox (%): 95 - Studies Microbiology Data (last 24 hrs): 03/09/19 18:47 Nasopharnyx Influenza Type A Antigen Screen - Final 03/09/19 18:47 Nasopharnyx Influenza Type B Antigen Screen - Final Assessment & Plan Physician Review Additional Text: Impression: Fever with Toxic encephalopathy noted bacteremia likely from Sacral decubitus stage 4 ulcer and bilateral heel eschar pressure ulcers ESRD on hemodialysis with Hyponatremia, Hypokalemia 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
[2019-03-10] MEDS ORDERED: INSULIN GLARGINE HUM REC ANLOG 20 UNIT SQ SCH (21:00)
[2019-03-10] MEDS ORDERED: TERAZOSIN HCL 4 MG PO SCH (21:00)
[2019-03-10] MEDS ORDERED: INSULIN GLARGINE 100 UNITS/ML SQ SCH (21:00)
[2019-03-10] MEDS: ATORVASTATIN 20 MG TAB PO SCH (21:02)
[2019-03-10] MEDS: TRAZODONE 50 MG TABLET PO SCH (21:03)
[2019-03-10] MEDS: TERAZOSIN HCL 1 MG CAP PO SCH (21:03)
[2019-03-10] MEDS ORDERED: INSULIN 70/30 100 UNITS/ML SQ ONE (21:37)
--- NOTE | 2019-03-10 23:30 | CON ---
Date of Consultation: 03/10/2019 History Of Present Illness: Patient has multiple medical problems including history of end-stage mary al disease, on dialysis. She was referred from [facility] after she developed low-grade fever d uring dialysis and blood cultures were obtained, although the culture result is pending. Patient is a 68-year-old woman with history of end-stage renal disease. She has been dialyzed 3 times per week on Monday, , Monday. She had history of severe deconditioning. She is bedbound. She dev eloped foot sores and decubitus ulcers in lower back. She was hypotensive at the end of the treatmen t. Blood pressure was 100/70. Blood pressure improved in the emergency room. Patient deny nausea, vomiting. Denies chest pain, palpitation. No cough. Patient although is not a good historian. She has history of altered mental status, history of stroke and seizure. She had complicated history of diabetes with complication including end-stage renal disease. Review of Systems: Unobtainable. Patient is confused, but she denies pain. Past Medical History: Hypertension; diabetes mellitus; seizure; progressive tremor; stroke; cholecys tectomy; end-stage renal disease, on dialysis. Past Surgical History: Knee surgery, hysterectomy, bunionectomy, carpal tunnel syndrome. Family History: Father, myocardial infarction. Mother, cancer. Sister, diabetes. Social History: No history of tobacco or illicit drugs. Physical Examination: Vital Signs: Blood pressure 138/60, heart rate 80, temperature 97.8, respiratory rate 16, SpO2 of 94 %. General: Patient is awake, alert, somewhat confused. Eyes: Anicteric sclerae. EOMI. Ears, Nose, Mouth, and Throat: Oral mucosa moist. No pallor. Neck: Supple. No bruits. Lungs: Clear to auscultation bilaterally. Heart: S1, S2. No pericardial friction rub. Abdomen: Obese, soft, nontender. No rebound. No guarding. Extremities: Diabetic foot ulcers bilaterally, ankle wound and pressure ulcer present. Neurological: Cranial nerves intact. Psychiatric: Patient is confused. Follows commands. Laboratory Data: WBC 13.6, hemoglobin 9.9, platelet count is 327,000. Sodium 134, potassium 2.7, BU N 36, creatinine 1.52, glucose 202, magnesium 2.0, lipase 18. Impression And Plan: 1.End-stage renal disease. Patient will have dialysis tomorrow. 2.Decubitus ulcer. Patient is scheduled to have debridement. Continue antibiotics. 3.Hypertension. Hold blood pressure medication if systolic blood pressure is below 110. 4.Anemia of chronic kidney disease. Monitor hemoglobin level. Advance HEATHER according to hemoglobin level. Renal osteodystrophy. Continue renal diet and binders. EB/MODL Voice ID: [id number] Report ID: [id number]
[2019-03-11 05:45] LABS: Absolute Lymphocytes (CBC) 1.5 K/uL (0.7-4.9); Basophils % 0.3 % (0-1.3); Hematocrit 26.5 % (36.0-45.0); Lymphocytes % 12.9 % (15.3-44.8); MPV 8.7 fL (7.6-11.3); RBC Red Blood Cell Count 2.67 M/uL (3.86-4.86)
[2019-03-11 06:03] LABS: Magnesium 2.2 mg/dL (1.8-2.4); Potassium 3.8 mmol/L (3.5-5.1)
--- OUTSIDE RECORDS SUMMARY | 2019-03-11 06:34 | XMS REPORT ---
:1950 [facility] [address] [place] [address] Care Team Providers Name Role Phone MARTIN EFRAIN RODRIGUEZ Unavailable Unavailable KATELYN PALUMBO Unavailable Unavailable CHADMICHAEL Unavailable Unavailable GIVEON, ANNIE Unavailable Unavailable EMILIANO, VALENTÍN ZAMARRIPA Unavailable Unavailable Problems This patient has no known problems. Allergies, Adverse Reactions, Alerts This patient has no known allergies or adverse reactions. Medications This patient has no known medications. Results Test Description Test Time Test Comments Text Results Atomic Results Result Comments KEVIN ZULEMA 2018-11-20 17:02:00 Reason for FINAL REPORT PATIENT ID: CATHETER INSERTION exam:->non working [id number] Procedure: current access Removal of nonfunctioning right [...] MDReport Verified Date/Time: 11/20/2018 17:02:10 Reading Location: [facility] Imaging Reading Room - [facility] 1.310.12 -GLUCOSE METER 2018-11-16 08:18:00 Test Item Value Reference Range Comments POC-GLUCOSE METER (BEAKER) (test 151 mg/dL 70-110 TESTED AT [facility] [address] [facility] arrg=7456) [facility] [address] [id number] 07:13:00 Test Item Value Reference Range Comments PHOSPHORUS (BEAKER) (test xihe=838) 1.8 mg/dL 2.3-4.7 [id number] 07:13:00 Test Item Value Reference Range Comments MAGNESIUM (BEAKER) (test jldk=288) 1.8 mg/dL 1.6-2.6 BASIC METABOLIC [id number] 07:13:00 Test Item Value Reference Range Comments SODIUM (BEAKER) (test 133 meq/L 136-145 kasm=162) POTASSIUM (BEAKER) (test 3.8 meq/L 3.5-5.1 yxhb=655) CHLORIDE (BEAKER) (test 103 meq/L 98-107 erfh=902) CO2 (BEAKER) (test 24 meq/L 22-29 mnty=162) BLOOD UREA NITROGEN 12 mg/dL 7-21 (BEAKER) (test sldy=101) CREATININE (BEAKER) (test 1.43 mg/dL 0.57-1.25 pdni=175) GLUCOSE RANDOM (BEAKER) 163 mg/dL 70-105 (test lqje=964) CALCIUM (BEAKER) (test 8.2 mg/dL 8.4-10.2 jvqw=978) EGFR (BEAKER) (test 37 mL/min/1.73 sq m ESTIMATED GFR IS NOT pula=5416) ACCURATE CREATININE CLEARANCE IN PREDICTING GLOMERULAR FILTRATION RATE. ESTIMATED GFR IS NOT APPLICABLE FOR DIALYSIS PATIENTS. PROTHROMBIN [id number] 06:07:00 Test Item Value Reference Range Comments PROTIME (BEAKER) (test gqzs=190) 13.6 seconds 11.9-14.2 INR (BEAKER) (test ojkp=903) 1.1 <=5.9 Effective 09/26/2018: PT Reference Range ChangeNew: 11.9-14.2 Previous: 11.7- 14.7RECOMMENDED COUMADIN/WARFARIN INR THERAPY RANGESSTANDARD DOSE: 2.0-3.0 Includes: PROPHYLAXIS for venous thrombosis, systemic embolization; TREATMENT for venous thrombosis and/or pulmonary embolus.HIGH RISK: Target INR is2.5-3.5 for patients wiht mechanical heart valves.CBC W/PLT COUNT & AUTO [id number] 06:01:00 Test Item Value Reference Range Comments WHITE BLOOD CELL COUNT (BEAKER) (test rdqq=506) 11.4 K/ L 3.5-10.5 RED BLOOD CELL COUNT (BEAKER) (test fiwb=287) 2.67 M/ L 3.93-5.22 HEMOGLOBIN (BEAKER) (test gili=362) 8.2 GM/DL 11.2-15.7 HEMATOCRIT (BEAKER) (test vovx=052) 25.3 % 34.1-44.9 MEAN CORPUSCULAR VOLUME (BEAKER) (test vyzb=642) 94.8 fL 79.4-94.8 MEAN CORPUSCULAR HEMOGLOBIN (BEAKER) (test 30.7 pg 25.6-32.2 bevc=972) MEAN CORPUSCULAR HEMOGLOBIN CONC (BEAKER) (test 32.4 GM/DL 32.2-35.5 ekht=899) RED CELL DISTRIBUTION WIDTH (BEAKER) (test 15.5 % 11.7-14.4 mfzw=631) PLATELET COUNT (BEAKER) (test epbr=159) 208 K/CU MM 150-450 MEAN PLATELET VOLUME (BEAKER) (test yirv=883) 11.6 fL 9.4-12.3 NUCLEATED RED BLOOD CELLS (BEAKER) (test 0 /100 WBC 0-0 mtfb=091) NEUTROPHILS RELATIVE PERCENT (BEAKER) (test 76 % mbai=039) LYMPHOCYTES RELATIVE PERCENT (BEAKER) (test 13 % rygt=009) MONOCYTES RELATIVE PERCENT (BEAKER) (test 8 % xqea=598) EOSINOPHILS RELATIVE PERCENT (BEAKER) (test 2 % nedy=553) BASOPHILS RELATIVE PERCENT (BEAKER) (test 0 % yuij=705) NEUTROPHILS ABSOLUTE COUNT (BEAKER) (test 8.62 K/ L 1.56-6.13 amsf=550) LYMPHOCYTES ABSOLUTE COUNT (BEAKER) (test 1.47 K/ L 1.18-3.74 tmgy=349) MONOCYTES ABSOLUTE COUNT (BEAKER) (test 0.87 K/ L 0.24-0.36 xluq=779) EOSINOPHILS ABSOLUTE COUNT (BEAKER) (test 0.24 K/ L 0.04-0.36 molx=196) BASOPHILS ABSOLUTE COUNT (BEAKER) (test 0.05 K/ L 0.01-0.08 fblh=567) IMMATURE GRANULOCYTES-RELATIVE PERCENT (BEAKER) 1 % 0-1 (test rlcs=8336) CALCIUM, [id number] 05:55:00 Test Item Value Reference Range Comments CALCIUM IONIZED (BEAKER) (test kgyx=021) 1.10 mmol/L 1.12-1.27 PH, BLOOD (BEAKER) (test pgjk=0159) 7.49 POCT-GLUCOSE [id number] 23:51:00 Test Item Value Reference Range Comments POC-GLUCOSE METER (BEAKER) 159 mg/dL 70-110 TESTED AT [address] (test tsyz=9158) [place] [id number] POCT-GLUCOSE [id number] 19:52:00 Test Item Value Reference Range Comments POC-GLUCOSE METER (BEAKER) 149 mg/dL 70-110 TESTED AT [address] (test nyid=6824) [place] [id number] TISSUE [id number] 15:37:00Surgical Pathology Report Case: [id number] Authorizing Provider: Waleska Vera Collected: 11/08/2018 Jose E Ch MD OrderingLocation: [place] [address] ICU Received: 2018 0846 Pathologist: Anika Donaldson [...] tissue was identified. Recommend close clinical follow-up. [id number] bleedDuodenum, submucosal mass biopsyThe case is received in one part labeled with the patient's name, Kylee Christie, date of 1950 and accession number [id number] [...] change or granuloma or dysplasia is seen.POCT-GLUCOSE [id number] 13:18:00 Test Item Value Reference Range Comments POC-GLUCOSE METER (BEAKER) 166 mg/dL 70-110 TESTED AT [address] (test teln=2296) [facility] [address] ANG, ARTERIAL EMBOLIZATION FOR [id number] 09:59:00Reason for exam:-> rectal bleedingFINAL REPORT Mesenteric angiogram with embolization of a bleeding superior rectal branch. History: Rectal bleeding. Modality: Fluoroscopy Sedation: None Anesthesia: Two percent Lidocaine withoutepinephrine. Approach: Right common femoral artery Estimated blood loss: < 5 cc. Specimen: None. slotter operator: Brendan Antonio MD. Physical Therapy Supervisor: MD Atif. Fluoroscopy Time: 11.2 min.Reference Air [...] the usual sterile fashion and a 5 [place] vascular sheath was placed. A Summers 2.5 catheter was used to select the inferior mesenteric artery. Digital subtraction angiography was performed which demonstrated active hemorrhage arising from a right branch of the superior rectal artery. A STC microcatheter and fathom wire were then used [...] closure device placement or found. A 5 [place] minx device was then deployed as the sheath was removed. Impression: Active arterial extravasation from a right superior rectal branch which was successfully coil embolized. Signed: Brendan AntonioMDReport Verified Date/Time: 11/15/2018 09:59:54 Reading Location: [place] [address] Angio Body Reading Room POCT-GLUCOSE [id number] 08:43:00 Test Item Value Reference Range Comments POC-GLUCOSE METER (BEAKER) 172 mg/dL 70-110 TESTED AT [address] (test azur=1238) [facility] [address] COMPREHENSIVE METABOLIC [id number] 07:41:00 Test Item Value Reference Range Comments TOTAL PROTEIN (BEAKER) 5.5 gm/dL 6.0-8.3 (test mdit=503) ALBUMIN (BEAKER) (test 2.5 g/dL 3.5-5.0 ltwz=3002) ALKALINE PHOSPHATASE 80 U/L 40-150 (BEAKER) (test copo=213) BILIRUBIN TOTAL (BEAKER) 0.2 mg/dL 0.2-1.2 (test ahgy=948) SODIUM (BEAKER) (test 132 meq/L 136-145 kjua=879) POTASSIUM (BEAKER) (test 4.0 meq/L 3.5-5.1 gqsn=783) CHLORIDE (BEAKER) (test 102 meq/L 98-107 jkzu=848) CO2 (BEAKER) (test 24 meq/L 22-29 xsmg=966) BLOOD UREA NITROGEN 25 mg/dL 7-21 (BEAKER) (test cbiw=883) CREATININE (BEAKER) (test 2.50 mg/dL 0.57-1.25 vhfg=634) GLUCOSE RANDOM (BEAKER) 147 mg/dL 70-105 (test pjoo=397) CALCIUM (BEAKER) (test 7.8 mg/dL 8.4-10.2 bjzw=785) AST (SGOT) (BEAKER) (test 12 U/L 5-34 bgqp=943) ALT (SGPT) (BEAKER) (test 11 U/L 6-55 cidp=971) EGFR (BEAKER) (test 19 mL/min/1.73 sq m ESTIMATED GFR IS NOT zgvb=3207) ACCURATE CREATININE CLEARANCE IN PREDICTING GLOMERULAR FILTRATION RATE. ESTIMATED GFR IS NOT APPLICABLE FOR DIALYSIS PATIENTS. [id number] 07:25:00 Test Item Value Reference Range Comments PHOSPHORUS (BEAKER) (test zinf=295) 3.3 mg/dL 2.3-4.7 [id number] 07:25:00 Test Item Value Reference Range Comments MAGNESIUM (BEAKER) (test lann=865) 1.8 mg/dL 1.6-2.6 CALCIUM, [id number] 05:35:00 Test Item Value Reference Range Comments CALCIUM IONIZED (BEAKER) (test lhsv=499) 1.02 mmol/L 1.12-1.27 PH, BLOOD (BEAKER) (test jqdd=4579) 7.56 CBC W/PLT COUNT & AUTO [id number] 05:01:00 Test Item Value Reference Range Comments WHITE BLOOD CELL COUNT (BEAKER) (test nypa=640) 10.4 K/ L 3.5-10.5 RED BLOOD CELL COUNT (BEAKER) (test azba=764) 2.65 M/ L 3.93-5.22 HEMOGLOBIN (BEAKER) (test vwtt=722) 8.2 GM/DL 11.2-15.7 HEMATOCRIT (BEAKER) (test uymg=071) 24.7 % 34.1-44.9 MEAN CORPUSCULAR VOLUME (BEAKER) (test pinw=800) 93.2 fL 79.4-94.8 MEAN CORPUSCULAR HEMOGLOBIN (BEAKER) (test 30.9 pg 25.6-32.2 fjbl=479) MEAN CORPUSCULAR HEMOGLOBIN CONC (BEAKER) (test 33.2 GM/DL 32.2-35.5 yzjx=207) RED CELL DISTRIBUTION WIDTH (BEAKER) (test 15.8 % 11.7-14.4 whbj=146) PLATELET COUNT (BEAKER) (test mkfd=566) 198 K/CU MM 150-450 MEAN PLATELET VOLUME (BEAKER) (test wvvj=876) 11.4 fL 9.4-12.3 NUCLEATED RED BLOOD CELLS (BEAKER) (test 0 /100 WBC 0-0 hxly=024) NEUTROPHILS RELATIVE PERCENT (BEAKER) (test 68 % xapt=953) LYMPHOCYTES RELATIVE PERCENT (BEAKER) (test 19 % zzvx=105) MONOCYTES RELATIVE PERCENT (BEAKER) (test 8 % jpst=453) EOSINOPHILS RELATIVE PERCENT (BEAKER) (test 3 % nfcc=794) BASOPHILS RELATIVE PERCENT (BEAKER) (test 1 % nibj=747) NEUTROPHILS ABSOLUTE COUNT (BEAKER) (test 7.05 K/ L 1.56-6.13 wayn=986) LYMPHOCYTES ABSOLUTE COUNT (BEAKER) (test 1.95 K/ L 1.18-3.74 srlb=202) MONOCYTES ABSOLUTE COUNT (BEAKER) (test 0.85 K/ L 0.24-0.36 vhnw=511) EOSINOPHILS ABSOLUTE COUNT (BEAKER) (test 0.32 K/ L 0.04-0.36 ccit=363) BASOPHILS ABSOLUTE COUNT (BEAKER) (test 0.07 K/ L 0.01-0.08 cdqf=270) IMMATURE GRANULOCYTES-RELATIVE PERCENT (BEAKER) 2 % 0-1 (test shgc=6847) POCT-GLUCOSE [id number] 21:40:00 Test Item Value Reference Range Comments POC-GLUCOSE METER (BEAKER) 210 mg/dL 70-110 TESTED AT [facility] [address] [facility] (test bnhk=4635) [facility] [address] POCT-GLUCOSE [id number] 18:42:00 Test Item Value Reference Range Comments POC-GLUCOSE METER (BEAKER) 145 mg/dL 70-110 TESTED AT [facility] [address] [facility] (test ehrc=1337) [facility] [address] POCT-GLUCOSE [id number] 12:18:00 Test Item Value Reference Range Comments POC-GLUCOSE METER (BEAKER) 165 mg/dL 70-110 TESTED AT [address] (test urme=5662) [facility] [address] POCT-GLUCOSE [id number] 08:39:00 Test Item Value Reference Range Comments POC-GLUCOSE METER (BEAKER) 136 mg/dL 70-110 TESTED AT [address] (test idzu=0245) [facility] [address] [id number] 06:32:00 Test Item Value Reference Range Comments PHOSPHORUS (BEAKER) (test zoxd=270) 2.6 mg/dL 2.3-4.7 [id number] 06:32:00 Test Item Value Reference Range Comments MAGNESIUM (BEAKER) (test qonl=066) 1.8 mg/dL 1.6-2.6 BASIC METABOLIC [id number] 06:32:00 Test Item Value Reference Range Comments SODIUM (BEAKER) (test 134 meq/L 136-145 jsfx=201) POTASSIUM (BEAKER) (test 3.7 meq/L 3.5-5.1 expk=136) CHLORIDE (BEAKER) (test 103 meq/L 98-107 ptxr=960) CO2 (BEAKER) (test 25 meq/L 22-29 kfmf=720) BLOOD UREA NITROGEN 14 mg/dL 7-21 (BEAKER) (test qwxz=612) CREATININE (BEAKER) (test 1.57 mg/dL 0.57-1.25 pzqe=900) GLUCOSE RANDOM (BEAKER) 121 mg/dL 70-105 (test yyoi=084) CALCIUM (BEAKER) (test 8.1 mg/dL 8.4-10.2 mgsq=914) EGFR (BEAKER) (test 33 mL/min/1.73 sq m ESTIMATED GFR IS NOT piuq=0688) ACCURATE CREATININE CLEARANCE IN PREDICTING GLOMERULAR FILTRATION RATE. ESTIMATED GFR IS NOT APPLICABLE FOR DIALYSIS PATIENTS. CALCIUM, [id number] 06:03:00 Test Item Value Reference Range Comments CALCIUM IONIZED (BEAKER) (test puhi=080) 1.02 mmol/L 1.12-1.27 PH, BLOOD (BEAKER) (test lsfc=7815) 7.49 CBC W/PLT COUNT & AUTO [id number] 05:50:00 Test Item Value Reference Range Comments WHITE BLOOD CELL COUNT (BEAKER) (test zokz=466) 11.1 K/ L 3.5-10.5 RED BLOOD CELL COUNT (BEAKER) (test wdjv=616) 2.86 M/ L 3.93-5.22 HEMOGLOBIN (BEAKER) (test dzxp=578) 8.8 GM/DL 11.2-15.7 HEMATOCRIT (BEAKER) (test eigw=523) 26.7 % 34.1-44.9 MEAN CORPUSCULAR VOLUME (BEAKER) (test wqfp=326) 93.4 fL 79.4-94.8 MEAN CORPUSCULAR HEMOGLOBIN (BEAKER) (test 30.8 pg 25.6-32.2 vqer=891) MEAN CORPUSCULAR HEMOGLOBIN CONC (BEAKER) (test 33.0 GM/DL 32.2-35.5 qjuw=042) RED CELL DISTRIBUTION WIDTH (BEAKER) (test 15.4 % 11.7-14.4 kdnq=288) PLATELET COUNT (BEAKER) (test oune=542) 174 K/CU MM 150-450 MEAN PLATELET VOLUME (BEAKER) (test dvwl=835) 11.1 fL 9.4-12.3 NUCLEATED RED BLOOD CELLS (BEAKER) (test 0 /100 WBC 0-0 uyld=293) NEUTROPHILS RELATIVE PERCENT (BEAKER) (test 68 % xurg=272) LYMPHOCYTES RELATIVE PERCENT (BEAKER) (test 16 % bjkc=152) MONOCYTES RELATIVE PERCENT (BEAKER) (test 10 % wqnm=807) EOSINOPHILS RELATIVE PERCENT (BEAKER) (test 3 % nddz=867) BASOPHILS RELATIVE PERCENT (BEAKER) (test 1 % oqpu=514) NEUTROPHILS ABSOLUTE COUNT (BEAKER) (test 7.54 K/ L 1.56-6.13 ouio=984) LYMPHOCYTES ABSOLUTE COUNT (BEAKER) (test 1.76 K/ L 1.18-3.74 nwlf=648) MONOCYTES ABSOLUTE COUNT (BEAKER) (test 1.11 K/ L 0.24-0.36 gatg=941) EOSINOPHILS ABSOLUTE COUNT (BEAKER) (test 0.34 K/ L 0.04-0.36 uods=624) BASOPHILS ABSOLUTE COUNT (BEAKER) (test 0.08 K/ L 0.01-0.08 kqqn=522) IMMATURE GRANULOCYTES-RELATIVE PERCENT (BEAKER) 2 % 0-1 (test zvdy=6100) POCT-GLUCOSE [id number] 21:33:00 Test Item Value Reference Range Comments POC-GLUCOSE METER (BEAKER) 178 mg/dL 70-110 TESTED AT [address] (test lkma=5059) [place] [address] POCT-GLUCOSE [id number] 18:03:00 Test Item Value Reference Range Comments POC-GLUCOSE METER (BEAKER) 125 mg/dL 70-110 TESTED AT [address] (test mnts=3496) [place] [address] POCT-GLUCOSE [id number] 11:45:00 Test Item Value Reference Range Comments POC-GLUCOSE METER (BEAKER) 134 mg/dL 70-110 TESTED AT [address] (test xggo=3279) [place] [id number] BASIC METABOLIC [id number] 08:43:00 Test Item Value Reference Range Comments SODIUM (BEAKER) (test 131 meq/L 136-145 rjly=577) POTASSIUM (BEAKER) (test 3.9 meq/L 3.5-5.1 znyu=856) CHLORIDE (BEAKER) (test 98 meq/L 98-107 afwp=842) CO2 (BEAKER) (test 24 meq/L 22-29 dtgx=346) BLOOD UREA NITROGEN 31 mg/dL 7-21 (BEAKER) (test hwjj=078) CREATININE (BEAKER) (test 2.59 mg/dL 0.57-1.25 kpbu=823) GLUCOSE RANDOM (BEAKER) 84 mg/dL 70-105 (test naxt=033) CALCIUM (BEAKER) (test 8.0 mg/dL 8.4-10.2 nxns=189) EGFR (BEAKER) (test 18 mL/min/1.73 sq m ESTIMATED GFR IS NOT ogga=7323) ACCURATE CREATININE CLEARANCE IN PREDICTING GLOMERULAR FILTRATION RATE. ESTIMATED GFR IS NOT APPLICABLE FOR DIALYSIS PATIENTS. [id number] 08:23:00 Test Item Value Reference Range Comments MAGNESIUM (BEAKER) (test etmj=725) 1.6 mg/dL 1.6-2.6 POCT-GLUCOSE [id number] 08:12:00 Test Item Value Reference Range Comments POC-GLUCOSE METER (BEAKER) 93 mg/dL 70-110 TESTED AT [facility] [address] [facility] (test bjds=9710) [facility] [address] CBC W/PLT COUNT & AUTO [id number] 07:07:00 Test Item Value Reference Range Comments WHITE BLOOD CELL COUNT (BEAKER) (test lmbr=319) 11.6 K/ L 3.5-10.5 RED BLOOD CELL COUNT (BEAKER) (test vjgg=088) 2.93 M/ L 3.93-5.22 HEMOGLOBIN (BEAKER) (test iyjw=600) 9.0 GM/DL 11.2-15.7 HEMATOCRIT (BEAKER) (test cljr=128) 26.6 % 34.1-44.9 MEAN CORPUSCULAR VOLUME (BEAKER) (test zmnt=595) 90.8 fL 79.4-94.8 MEAN CORPUSCULAR HEMOGLOBIN (BEAKER) (test 30.7 pg 25.6-32.2 cvsw=557) MEAN CORPUSCULAR HEMOGLOBIN CONC (BEAKER) (test 33.8 GM/DL 32.2-35.5 uepn=134) RED CELL DISTRIBUTION WIDTH (BEAKER) (test 14.9 % 11.7-14.4 aaup=044) PLATELET COUNT (BEAKER) (test uyfp=269) 170 K/CU MM 150-450 MEAN PLATELET VOLUME (BEAKER) (test crux=206) 10.5 fL 9.4-12.3 NUCLEATED RED BLOOD CELLS (BEAKER) (test 0 /100 WBC 0-0 bqec=307) NEUTROPHILS RELATIVE PERCENT (BEAKER) (test 69 % vsjf=611) LYMPHOCYTES RELATIVE PERCENT (BEAKER) (test 14 % whjx=618) MONOCYTES RELATIVE PERCENT (BEAKER) (test 9 % eybu=476) EOSINOPHILS RELATIVE PERCENT (BEAKER) (test 4 % lxny=409) BASOPHILS RELATIVE PERCENT (BEAKER) (test 1 % gyyb=304) NEUTROPHILS ABSOLUTE COUNT (BEAKER) (test 8.02 K/ L 1.56-6.13 mqux=794) LYMPHOCYTES ABSOLUTE COUNT (BEAKER) (test 1.63 K/ L 1.18-3.74 limm=898) MONOCYTES ABSOLUTE COUNT (BEAKER) (test 1.06 K/ L 0.24-0.36 qrmc=674) EOSINOPHILS ABSOLUTE COUNT (BEAKER) (test 0.43 K/ L 0.04-0.36 vkkr=711) BASOPHILS ABSOLUTE COUNT (BEAKER) (test 0.07 K/ L 0.01-0.08 mgwx=907) IMMATURE GRANULOCYTES-RELATIVE PERCENT (BEAKER) 3 % 0-1 (test twll=8782) CALCIUM, [id number] 06:26:00 Test Item Value Reference Range Comments CALCIUM IONIZED (BEAKER) (test xjrn=493) 1.02 mmol/L 1.12-1.27 PH, BLOOD (BEAKER) (test srou=5933) 7.49 POCT-GLUCOSE [id number] 21:15:00 Test Item Value Reference Range Comments POC-GLUCOSE METER (BEAKER) 137 mg/dL 70-110 TESTED AT [address] (test gcrw=2128) [facility] [address] BLOOD [id number] 20:02:00 Test Item Value Reference Range Comments CULTURE (BEAKER) (test hnxs=5649) No growth in 5 days BLOOD [id number] 20:02:00 Test Item Value Reference Range Comments CULTURE (BEAKER) (test lvdr=9878) No growth in 5 days POCT-GLUCOSE [id number] 11:22:00 Test Item Value Reference Range Comments POC-GLUCOSE METER (BEAKER) 235 mg/dL 70-110 TESTED AT [address] (test veyd=6088) [facility] [address] HEMOGLOBIN [id number] 09:10:00 Test Item Value Reference Range Comments HEMOGLOBIN A1C (BEAKER) (test dssu=771) 5.6 % 4.3-6.1 COMPREHENSIVE METABOLIC [id number] 07:15:00 Test Item Value Reference Range Comments TOTAL PROTEIN (BEAKER) 5.5 gm/dL 6.0-8.3 (test xnci=479) ALBUMIN (BEAKER) (test 2.6 g/dL 3.5-5.0 rsxp=5627) ALKALINE PHOSPHATASE 82 U/L 40-150 (BEAKER) (test ukzh=913) BILIRUBIN TOTAL (BEAKER) 0.3 mg/dL 0.2-1.2 (test phpb=722) SODIUM (BEAKER) (test 130 meq/L 136-145 xhal=040) POTASSIUM (BEAKER) (test 3.7 meq/L 3.5-5.1 fqqa=292) CHLORIDE (BEAKER) (test 98 meq/L 98-107 poya=198) CO2 (BEAKER) (test 25 meq/L 22-29 hwbq=115) BLOOD UREA NITROGEN 25 mg/dL 7-21 (BEAKER) (test zwbi=038) CREATININE (BEAKER) (test 2.34 mg/dL 0.57-1.25 cwgi=442) GLUCOSE RANDOM (BEAKER) 136 mg/dL 70-105 (test qrre=529) CALCIUM (BEAKER) (test 7.8 mg/dL 8.4-10.2 unjh=288) AST (SGOT) (BEAKER) (test 13 U/L 5-34 omus=168) ALT (SGPT) (BEAKER) (test 11 U/L 6-55 atys=116) EGFR (BEAKER) (test 21 mL/min/1.73 sq m ESTIMATED GFR IS NOT jmbq=9845) ACCURATE CREATININE CLEARANCE IN PREDICTING GLOMERULAR FILTRATION RATE. ESTIMATED GFR IS NOT APPLICABLE FOR DIALYSIS PATIENTS. [id number] 07:13:00 Test Item Value Reference Range Comments PHOSPHORUS (BEAKER) (test uvwq=904) 3.6 mg/dL 2.3-4.7 [id number] 07:13:00 Test Item Value Reference Range Comments MAGNESIUM (BEAKER) (test wprb=689) 1.7 mg/dL 1.6-2.6 CALCIUM, [id number] 06:50:00 Test Item Value Reference Range Comments CALCIUM IONIZED (BEAKER) (test dzym=780) 1.02 mmol/L 1.12-1.27 PH, BLOOD (BEAKER) (test gdik=1477) 7.46 CBC W/PLT COUNT & AUTO [id number] 06:43:00 Test Item Value Reference Range Comments WHITE BLOOD CELL COUNT (BEAKER) (test mijp=572) 9.3 K/ L 3.5-10.5 RED BLOOD CELL COUNT (BEAKER) (test geio=279) 2.74 M/ L 3.93-5.22 HEMOGLOBIN (BEAKER) (test aidu=017) 8.3 GM/DL 11.2-15.7 HEMATOCRIT (BEAKER) (test mbck=819) 25.1 % 34.1-44.9 MEAN CORPUSCULAR VOLUME (BEAKER) (test fyyj=599) 91.6 fL 79.4-94.8 MEAN CORPUSCULAR HEMOGLOBIN (BEAKER) (test 30.3 pg 25.6-32.2 zcck=460) MEAN CORPUSCULAR HEMOGLOBIN CONC (BEAKER) (test 33.1 GM/DL 32.2-35.5 vlon=417) RED CELL DISTRIBUTION WIDTH (BEAKER) (test 16.1 % 11.7-14.4 wxxv=045) PLATELET COUNT (BEAKER) (test yvhl=345) 154 K/CU MM 150-450 MEAN PLATELET VOLUME (BEAKER) (test seii=614) 10.3 fL 9.4-12.3 NUCLEATED RED BLOOD CELLS (BEAKER) (test 0 /100 WBC 0-0 wuhd=689) NEUTROPHILS RELATIVE PERCENT (BEAKER) (test 64 % gpqq=445) LYMPHOCYTES RELATIVE PERCENT (BEAKER) (test 16 % prul=218) MONOCYTES RELATIVE PERCENT (BEAKER) (test 10 % htqe=343) EOSINOPHILS RELATIVE PERCENT (BEAKER) (test 5 % eojb=649) BASOPHILS RELATIVE PERCENT (BEAKER) (test 1 % bmwe=777) NEUTROPHILS ABSOLUTE COUNT (BEAKER) (test 5.95 K/ L 1.56-6.13 vbrc=091) LYMPHOCYTES ABSOLUTE COUNT (BEAKER) (test 1.50 K/ L 1.18-3.74 cknz=579) MONOCYTES ABSOLUTE COUNT (BEAKER) (test 0.95 K/ L 0.24-0.36 tmgw=826) EOSINOPHILS ABSOLUTE COUNT (BEAKER) (test 0.43 K/ L 0.04-0.36 cvjv=124) BASOPHILS ABSOLUTE COUNT (BEAKER) (test 0.09 K/ L 0.01-0.08 bccm=357) IMMATURE GRANULOCYTES-RELATIVE PERCENT (BEAKER) 5 % 0-1 (test tars=5335) POCT-GLUCOSE [id number] 06:30:00 Test Item Value Reference Range Comments POC-GLUCOSE METER (BEAKER) 157 mg/dL 70-110 TESTED AT [facility] [address] [facility] (test bxzx=4461) [facility] [address] POCT-GLUCOSE [id number] 21:39:00 Test Item Value Reference Range Comments POC-GLUCOSE METER (BEAKER) 137 mg/dL 70-110 TESTED AT [address] (test aqlw=2585) [facility] [address] POCT-GLUCOSE [id number] 17:53:00 Test Item Value Reference Range Comments POC-GLUCOSE METER (BEAKER) 327 mg/dL 70-110 TESTED AT [address] (test zxlz=9813) [facility] [address] POCT-GLUCOSE [id number] 14:50:00 Test Item Value Reference Range Comments POC-GLUCOSE METER (BEAKER) 361 mg/dL 70-110 TESTED AT [address] (test mtzz=2682) [facility] [address] POCT-GLUCOSE [id number] 05:30:00 Test Item Value Reference Range Comments POC-GLUCOSE METER (BEAKER) 199 mg/dL 70-110 TESTED AT [address] (test ofhs=8351) [facility] [address] [id number] 01:48:00 Test Item Value Reference Range Comments PHOSPHORUS (BEAKER) (test idws=617) 1.3 mg/dL 2.3-4.7 COMPREHENSIVE METABOLIC [id number] 01:46:00 Test Item Value Reference Range Comments TOTAL PROTEIN (BEAKER) 5.0 gm/dL 6.0-8.3 (test ypwt=868) ALBUMIN (BEAKER) (test 2.3 g/dL 3.5-5.0 lajn=8212) ALKALINE PHOSPHATASE 81 U/L 40-150 (BEAKER) (test bxxy=429) BILIRUBIN TOTAL (BEAKER) 0.4 mg/dL 0.2-1.2 (test ibfs=825) SODIUM (BEAKER) (test 135 meq/L 136-145 fscm=166) POTASSIUM (BEAKER) (test 3.1 meq/L 3.5-5.1 uqxn=250) CHLORIDE (BEAKER) (test 106 meq/L 98-107 mwzv=503) CO2 (BEAKER) (test 21 meq/L 22-29 jbee=661) BLOOD UREA NITROGEN 9 mg/dL 7-21 (BEAKER) (test xjcz=906) CREATININE (BEAKER) (test 1.15 mg/dL 0.57-1.25 tciy=605) GLUCOSE RANDOM (BEAKER) 171 mg/dL 70-105 (test jiny=276) CALCIUM (BEAKER) (test 7.1 mg/dL 8.4-10.2 ikdy=313) AST (SGOT) (BEAKER) (test 15 U/L 5-34 qgrn=897) ALT (SGPT) (BEAKER) (test 13 U/L 6-55 ykkc=305) EGFR (BEAKER) (test 47 mL/min/1.73 sq m ESTIMATED GFR IS NOT kmyy=6953) ACCURATE CREATININE CLEARANCE IN PREDICTING GLOMERULAR FILTRATION RATE. ESTIMATED GFR IS NOT APPLICABLE FOR DIALYSIS PATIENTS. [id number] 01:37:00 Test Item Value Reference Range Comments MAGNESIUM (BEAKER) (test wzdn=070) 1.7 mg/dL 1.6-2.6 HEMOGLOBIN AND [id number] 01:16:00 Test Item Value Reference Range Comments HEMOGLOBIN (BEAKER) (test mbgh=984) 8.3 GM/DL 11.2-15.7 HEMATOCRIT (BEAKER) (test dmyc=051) 24.2 % 34.1-44.9 CBC W/PLT COUNT & AUTO [id number] 01:16:00 Test Item Value Reference Range Comments WHITE BLOOD CELL COUNT (BEAKER) (test oach=967) 11.1 K/ L 3.5-10.5 RED BLOOD CELL COUNT (BEAKER) (test oomd=619) 2.70 M/ L 3.93-5.22 HEMOGLOBIN (BEAKER) (test vtrc=689) 8.3 GM/DL 11.2-15.7 HEMATOCRIT (BEAKER) (test cexb=381) 24.2 % 34.1-44.9 MEAN CORPUSCULAR VOLUME (BEAKER) (test jxpm=660) 89.6 fL 79.4-94.8 MEAN CORPUSCULAR HEMOGLOBIN (BEAKER) (test 30.7 pg 25.6-32.2 avqs=081) MEAN CORPUSCULAR HEMOGLOBIN CONC (BEAKER) (test 34.3 GM/DL 32.2-35.5 sczx=573) RED CELL DISTRIBUTION WIDTH (BEAKER) (test 17.5 % 11.7-14.4 lido=737) PLATELET COUNT (BEAKER) (test qwkz=850) 159 K/CU MM 150-450 MEAN PLATELET VOLUME (BEAKER) (test wdaa=820) 9.7 fL 9.4-12.3 NUCLEATED RED BLOOD CELLS (BEAKER) (test 0 /100 WBC 0-0 bbth=609) NEUTROPHILS RELATIVE PERCENT (BEAKER) (test 65 % mpjd=709) LYMPHOCYTES RELATIVE PERCENT (BEAKER) (test 16 % tosq=002) MONOCYTES RELATIVE PERCENT (BEAKER) (test 11 % shxo=727) EOSINOPHILS RELATIVE PERCENT (BEAKER) (test 4 % takq=735) BASOPHILS RELATIVE PERCENT (BEAKER) (test 1 % zebr=383) NEUTROPHILS ABSOLUTE COUNT (BEAKER) (test 7.20 K/ L 1.56-6.13 kpyy=194) LYMPHOCYTES ABSOLUTE COUNT (BEAKER) (test 1.77 K/ L 1.18-3.74 fcks=664) MONOCYTES ABSOLUTE COUNT (BEAKER) (test 1.16 K/ L 0.24-0.36 wanb=161) EOSINOPHILS ABSOLUTE COUNT (BEAKER) (test 0.43 K/ L 0.04-0.36 kjbg=829) BASOPHILS ABSOLUTE COUNT (BEAKER) (test 0.06 K/ L 0.01-0.08 sbxn=404) IMMATURE GRANULOCYTES-RELATIVE PERCENT (BEAKER) 4 % 0-1 (test noqj=2024) CALCIUM, [id number] 01:16:00 Test Item Value Reference Range Comments CALCIUM IONIZED (BEAKER) (test oomo=270) 1.13 mmol/L 1.12-1.27 PH, BLOOD (BEAKER) (test onra=2414) 7.52 POCT-GLUCOSE [id number] 23:51:00 Test Item Value Reference Range Comments POC-GLUCOSE METER (BEAKER) 161 mg/dL 70-110 TESTED AT [facility] [address] [facility] (test khje=3634) [facility] [address] HEMOGLOBIN AND [id number] 19:44:00 Test Item Value Reference Range Comments HEMOGLOBIN (BEAKER) (test svkx=064) 8.6 GM/DL 11.2-15.7 HEMATOCRIT (BEAKER) (test dzhz=703) 25.0 % 34.1-44.9 POCT-GLUCOSE [id number] 17:54:00 Test Item Value Reference Range Comments POC-GLUCOSE METER (BEAKER) 195 mg/dL 70-110 TESTED AT [facility] [address] [place] [address] (test dddd=3961) [facility] [address] HEPATITIS B SURFACE [id number] 13:45:00 Test Item Value Reference Range Comments HEPATITIS B SURFACE ANTIGEN (2) (BEAKER) (test Nonreactive Nonreactive dsku=2584) For chronic HD patients, draw HBsAg with each admission then every 30 days.POCT- GLUCOSE [id number] 12:09:00 Test Item Value Reference Range Comments POC-GLUCOSE METER (BEAKER) 194 mg/dL 70-110 TESTED AT [address] (test cblt=2903) [facility] [address] CBC W/PLT COUNT & AUTO [id number] 09:36:00 Test Item Value Reference Range Comments WHITE BLOOD CELL COUNT (BEAKER) (test tjtw=727) 13.6 K/ L 3.5-10.5 RED BLOOD CELL COUNT (BEAKER) (test dzfd=783) 2.74 M/ L 3.93-5.22 HEMOGLOBIN (BEAKER) (test mkkf=665) 8.3 GM/DL 11.2-15.7 HEMATOCRIT (BEAKER) (test znxf=198) 25.1 % 34.1-44.9 MEAN CORPUSCULAR VOLUME (BEAKER) (test omoz=790) 91.6 fL 79.4-94.8 MEAN CORPUSCULAR HEMOGLOBIN (BEAKER) (test 30.3 pg 25.6-32.2 ntip=472) MEAN CORPUSCULAR HEMOGLOBIN CONC (BEAKER) (test 33.1 GM/DL 32.2-35.5 hbru=373) RED CELL DISTRIBUTION WIDTH (BEAKER) (test 17.3 % 11.7-14.4 zlgj=177) PLATELET COUNT (BEAKER) (test wcwb=589) 171 K/CU MM 150-450 MEAN PLATELET VOLUME (BEAKER) (test izhr=328) 10.2 fL 9.4-12.3 NUCLEATED RED BLOOD CELLS (BEAKER) (test 0 /100 WBC 0-0 yvvr=385) NEUTROPHILS RELATIVE PERCENT (BEAKER) (test 66 % zefh=971) LYMPHOCYTES RELATIVE PERCENT (BEAKER) (test 17 % orcc=124) MONOCYTES RELATIVE PERCENT (BEAKER) (test 9 % vdxh=152) EOSINOPHILS RELATIVE PERCENT (BEAKER) (test 3 % aqyr=882) BASOPHILS RELATIVE PERCENT (BEAKER) (test 1 % htjw=610) NEUTROPHILS ABSOLUTE COUNT (BEAKER) (test 8.91 K/ L 1.56-6.13 wzns=723) LYMPHOCYTES ABSOLUTE COUNT (BEAKER) (test 2.24 K/ L 1.18-3.74 zebw=669) MONOCYTES ABSOLUTE COUNT (BEAKER) (test 1.26 K/ L 0.24-0.36 uaqg=592) EOSINOPHILS ABSOLUTE COUNT (BEAKER) (test 0.41 K/ L 0.04-0.36 klnw=757) BASOPHILS ABSOLUTE COUNT (BEAKER) (test 0.08 K/ L 0.01-0.08 hygn=516) IMMATURE GRANULOCYTES-RELATIVE PERCENT (BEAKER) 5 % 0-1 (test xreq=1299) HEMOGLOBIN AND [id number] 09:32:00 Test Item Value Reference Range Comments HEMOGLOBIN (BEAKER) (test hsbo=200) 8.3 GM/DL 11.2-15.7 HEMATOCRIT (BEAKER) (test syjq=106) 25.1 % 34.1-44.9 [id number] 05:52:00 Test Item Value Reference Range Comments PROTIME (BEAKER) (test stom=695) 15.1 seconds 11.9-14.2 INR (BEAKER) (test rswo=540) 1.2 <=5.9 PARTIAL THROMBOPLASTIN TIME (BEAKER) (test 40.0 seconds 22.5-36.0 eose=847) Effective 09/26/2018: PT Reference Range ChangeNew: 11.9-14.2 Previous: 11.7- 14.7RECOMMENDED COUMADIN/WARFARIN INR THERAPY RANGESSTANDARD DOSE: 2.0-3.0 Includes: PROPHYLAXIS for venous thrombosis, systemic embolization; TREATMENT for venous thrombosis and/or pulmonary embolus.HIGH RISK: Target INR is2.5-3.5 for patients wiht mechanical heart valves.POCT-GLUCOSE [id number] 05:40:00 Test Item Value Reference Range Comments POC-GLUCOSE METER (BEAKER) 143 mg/dL 70-110 TESTED AT [facility] [address] [facility] (test qfqy=4964) [facility] [address] COMPREHENSIVE METABOLIC [id number] 05:29:00 Test Item Value Reference Range Comments TOTAL PROTEIN (BEAKER) 5.1 gm/dL 6.0-8.3 (test rdtx=093) ALBUMIN (BEAKER) (test 2.5 g/dL 3.5-5.0 htoj=6713) ALKALINE PHOSPHATASE 87 U/L 40-150 (BEAKER) (test pfja=410) BILIRUBIN TOTAL (BEAKER) 0.6 mg/dL 0.2-1.2 (test bdrf=877) SODIUM (BEAKER) (test 140 meq/L 136-145 bjgq=677) POTASSIUM (BEAKER) (test 3.9 meq/L 3.5-5.1 aaea=561) CHLORIDE (BEAKER) (test 108 meq/L 98-107 kwlb=483) CO2 (BEAKER) (test 17 meq/L 22-29 rzev=113) BLOOD UREA NITROGEN 28 mg/dL 7-21 (BEAKER) (test apnh=497) CREATININE (BEAKER) (test 2.18 mg/dL 0.57-1.25 ygne=546) GLUCOSE RANDOM (BEAKER) 129 mg/dL 70-105 (test xdeq=266) CALCIUM (BEAKER) (test 8.4 mg/dL 8.4-10.2 nfmd=901) AST (SGOT) (BEAKER) (test 15 U/L 5-34 fxyw=616) ALT (SGPT) (BEAKER) (test 16 U/L 6-55 pjsg=713) EGFR (BEAKER) (test 23 mL/min/1.73 sq m ESTIMATED GFR IS NOT qlre=1581) ACCURATE CREATININE CLEARANCE IN PREDICTING GLOMERULAR FILTRATION RATE. ESTIMATED GFR IS NOT APPLICABLE FOR DIALYSIS PATIENTS. [id number] 05:23:00 Test Item Value Reference Range Comments PHOSPHORUS (BEAKER) (test rewz=998) 3.3 mg/dL 2.3-4.7 [id number] 05:23:00 Test Item Value Reference Range Comments MAGNESIUM (BEAKER) (test bzdb=740) 2.2 mg/dL 1.6-2.6 BLOOD GAS, [id number] 05:21:00 Test Item Value Reference Range Comments PH ARTERIAL (BEAKER) (test axhg=988) 7.44 7.35-7.45 PCO2 ARTERIAL (BEAKER) (test ccqe=815) 26 mmHg 35-45 PO2 ARTERIAL (BEAKER) (test bywz=519) 142 mmHg 80-90 O2 SATURATION ARTERIAL (BEAKER) (test zono=523) 98.9 % 96.0-97.0 HCO3 ARTERIAL (BEAKER) (test bwxj=350) 17 mmol/L 21-29 BASE EXCESS ARTERIAL (BEAKER) (test okwn=661) -6.0 mmol/L -2.0-3.0 PATIENT TEMPERATURE (BEAKER) (test lrfg=0011) 37.0 C FIO2 (BEAKER) (test gfok=7627) 21.0 % CALCIUM, [id number] 05:19:00 Test Item Value Reference Range Comments CALCIUM IONIZED (BEAKER) (test pyht=369) 1.20 mmol/L 1.12-1.27 PH, BLOOD (BEAKER) (test rwgl=8221) 7.44 HEMOGLOBIN AND [id number] 00:44:00 Test Item Value Reference Range Comments HEMOGLOBIN (BEAKER) (test ezfd=996) 6.2 GM/DL 11.2-15.7 HEMATOCRIT (BEAKER) (test sdxr=529) 18.7 % 34.1-44.9 POCT-GLUCOSE [id number] 00:02:00 Test Item Value Reference Range Comments POC-GLUCOSE METER (BEAKER) 152 mg/dL 70-110 TESTED AT [address] (test pefl=4432) [place] [address] POCT-GLUCOSE [id number] 18:12:00 Test Item Value Reference Range Comments POC-GLUCOSE METER (BEAKER) 142 mg/dL 70-110 TESTED AT [address] (test pidn=2457) [place] [id number] BASIC METABOLIC [id number] 15:17:00 Test Item Value Reference Range Comments SODIUM (BEAKER) (test 138 meq/L 136-145 yqyb=416) POTASSIUM (BEAKER) (test 4.3 meq/L 3.5-5.1 vysh=657) CHLORIDE (BEAKER) (test 105 meq/L 98-107 jhgd=292) CO2 (BEAKER) (test 17 meq/L 22-29 swcm=216) BLOOD UREA NITROGEN 22 mg/dL 7-21 (BEAKER) (test mckl=895) CREATININE (BEAKER) (test 1.39 mg/dL 0.57-1.25 sipu=916) GLUCOSE RANDOM (BEAKER) 155 mg/dL 70-105 (test bcjy=907) CALCIUM (BEAKER) (test 8.3 mg/dL 8.4-10.2 apcx=846) EGFR (BEAKER) (test 38 mL/min/1.73 sq m ESTIMATED GFR IS NOT ykda=4883) ACCURATE CREATININE CLEARANCE IN PREDICTING GLOMERULAR FILTRATION RATE. ESTIMATED GFR IS NOT APPLICABLE FOR DIALYSIS PATIENTS. HEMOGLOBIN AND [id number] 14:59:00 Test Item Value Reference Range Comments HEMOGLOBIN (BEAKER) (test xrtt=697) 7.1 GM/DL 11.2-15.7 HEMATOCRIT (BEAKER) (test xldl=762) 21.4 % 34.1-44.9 CALCIUM, [id number] 14:38:00 Test Item Value Reference Range Comments CALCIUM IONIZED (BEAKER) (test mjao=602) 1.19 mmol/L 1.12-1.27 PH, BLOOD (BEAKER) (test evwy=4993) 7.46 POCT-GLUCOSE [id number] 12:08:00 Test Item Value Reference Range Comments POC-GLUCOSE METER (BEAKER) 193 mg/dL 70-110 TESTED AT [facility] [address] [facility] (test pnwm=8482) [facility] [address] BLOOD GAS, [id number] 11:26:00 Test Item Value Reference Range Comments PH ARTERIAL (BEAKER) (test ivnr=181) 7.45 7.35-7.45 PCO2 ARTERIAL (BEAKER) (test xoqf=996) 27 mmHg 35-45 PO2 ARTERIAL (BEAKER) (test ffxe=715) 235 mmHg 80-90 O2 SATURATION ARTERIAL (BEAKER) (test jmck=387) 99.6 % 96.0-97.0 HCO3 ARTERIAL (BEAKER) (test ucqh=966) 18 mmol/L 21-29 BASE EXCESS ARTERIAL (BEAKER) (test orwf=358) -5.0 mmol/L -2.0-3.0 PATIENT TEMPERATURE (BEAKER) (test osoi=6378) 36.5 C FIO2 (BEAKER) (test aews=6484) 40.0 % HEMOGLOBIN AND [id number] 11:01:00 Test Item Value Reference Range Comments HEMOGLOBIN (BEAKER) (test fjmm=139) 7.3 GM/DL 11.2-15.7 HEMATOCRIT (BEAKER) (test dwvj=107) 21.5 % 34.1-44.9 CBC W/PLT COUNT & AUTO [id number] 10:15:00 Test Item Value Reference Range Comments WHITE BLOOD CELL COUNT (BEAKER) (test twac=271) 13.9 K/ L 3.5-10.5 RED BLOOD CELL COUNT (BEAKER) (test nujj=311) 2.44 M/ L 3.93-5.22 HEMOGLOBIN (BEAKER) (test eiuo=104) 7.6 GM/DL 11.2-15.7 HEMATOCRIT (BEAKER) (test bsxz=278) 22.2 % 34.1-44.9 MEAN CORPUSCULAR VOLUME (BEAKER) (test mxdg=843) 91.0 fL 79.4-94.8 MEAN CORPUSCULAR HEMOGLOBIN (BEAKER) (test 31.1 pg 25.6-32.2 gdgv=800) MEAN CORPUSCULAR HEMOGLOBIN CONC (BEAKER) (test 34.2 GM/DL 32.2-35.5 lomv=524) RED CELL DISTRIBUTION WIDTH (BEAKER) (test 16.8 % 11.7-14.4 qmjm=341) PLATELET COUNT (BEAKER) (test zylq=182) 185 K/CU MM 150-450 MEAN PLATELET VOLUME (BEAKER) (test fcfo=708) 10.5 fL 9.4-12.3 NUCLEATED RED BLOOD CELLS (BEAKER) (test 0 /100 WBC 0-0 iydy=993) (CELLAVISION MANUAL DIFF)[id number] 10:15:00 Test Item Value Reference Range Comments NEUTROPHILS - REL (CELLAVISION)(BEAKER) (test 77 % noqx=8875) LYMPHOCYTES - REL (CELLAVISION)(BEAKER) (test 13 % ugzz=6861) MONOCYTES - REL (CELLAVISION)(BEAKER) (test 7 % ifkz=0795) EOSINOPHILS - REL (CELLAVISION)(BEAKER) (test 2 % xaer=7110) BANDS - REL (CELLAVISION)(BEAKER) (test 1 % 0-10 iwaz=9794) NEUTROPHILS - ABS (CELLAVISION)(BEAKER) (test 10.70 K/ul 1.56-6.13 ylmw=2128) LYMPHOCYTES - ABS (CELLAVISION)(BEAKER) (test 1.81 K/ul 1.18-3.74 odgc=7920) MONOCYTES - ABS (CELLAVISION)(BEAKER) (test 0.97 K/uL 0.24-0.36 ykut=7162) EOSINOPHILS - ABS (CELLAVISION)(BEAKER) (test 0.28 K/uL 0.04-0.36 bmda=1005) BANDS - ABS (CELLAVISION)(BEAKER) (test 0.14 K/uL 0.00-0.80 nbsq=8565) TOTAL COUNTED (BEAKER) (test vyeu=0113) 100 WBC MORPHOLOGY (BEAKER) (test zxdu=918) Normal PLT MORPHOLOGY (BEAKER) (test nqtt=740) Normal ANISOCYTOSIS (BEAKER) (test prel=346) 1+ few POIKILOCYTES (BEAKER) (test kdhe=772) 1+ few MARIELLA CELLS (BEAKER) (test ttvd=981) 1+ few ARTIFACT (CELLAVISION)(BEAKER) (test uyjw=8443) Present PLATELET CONCENTRATION (CELLAVISION)(BEAKER) Adequate (test yztx=5085) Received comment: User comments: Slide comments:POCT-GLUCOSE [id number] 09: 43:00 Test Item Value Reference Range Comments POC-GLUCOSE METER (BEAKER) 179 mg/dL 70-110 TESTED AT [facility] [address] [facility] (test huof=6287) [facility] [address] [id number] 09:41:00 Test Item Value Reference Range Comments PHOSPHORUS (BEAKER) (test xoua=938) 2.6 mg/dL 2.3-4.7 [id number] 09:41:00 Test Item Value Reference Range Comments MAGNESIUM (BEAKER) (test fhqq=527) 1.9 mg/dL 1.6-2.6 BASIC METABOLIC [id number] 09:41:00 Test Item Value Reference Range Comments SODIUM (BEAKER) (test 139 meq/L 136-145 vjhe=757) POTASSIUM (BEAKER) (test 4.0 meq/L 3.5-5.1 okts=715) CHLORIDE (BEAKER) (test 105 meq/L 98-107 asmq=044) CO2 (BEAKER) (test 17 meq/L 22-29 lcnf=380) BLOOD UREA NITROGEN 27 mg/dL 7-21 (BEAKER) (test tjie=650) CREATININE (BEAKER) (test 1.51 mg/dL 0.57-1.25 kblo=400) GLUCOSE RANDOM (BEAKER) 165 mg/dL 70-105 (test kdlz=958) CALCIUM (BEAKER) (test 8.4 mg/dL 8.4-10.2 amia=257) EGFR (BEAKER) (test 34 mL/min/1.73 sq m ESTIMATED GFR IS NOT wysz=2429) ACCURATE CREATININE CLEARANCE IN PREDICTING GLOMERULAR FILTRATION RATE. ESTIMATED GFR IS NOT APPLICABLE FOR DIALYSIS PATIENTS. POCT-GLUCOSE [id number] 09:38:00 Test Item Value Reference Range Comments POC-GLUCOSE METER (BEAKER) 268 mg/dL 70-110 TESTED AT [address] (test jdhw=2016) [place] [id number] POCT-GLUCOSE [id number] 09:35:00 Test Item Value Reference Range Comments POC-GLUCOSE METER (BEAKER) 200 mg/dL 70-110 TESTED AT [address] (test zuog=3071) [facility] [address] POCT-GLUCOSE [id number] 09:35:00 Test Item Value Reference Range Comments POC-GLUCOSE METER (BEAKER) 214 mg/dL 70-110 TESTED AT [address] (test byvg=6963) [facility] [address] PH, [id number] 09:20:00 Test Item Value Reference Range Comments PH ARTERIAL (BEAKER) (test bgzy=598) 7.47 7.35-7.45 CALCIUM, [id number] 09:19:00 Test Item Value Reference Range Comments CALCIUM IONIZED (BEAKER) (test srmu=541) 1.18 mmol/L 1.12-1.27 PH, BLOOD (BEAKER) (test alva=0783) 7.47 RAD, CHEST, 1 VIEW, NON [id number] 08:07:00Reason for exam:-> intubatedShould this be performed [...] MDReport Verified Date/Time: 03/2019 08:07:48 Reading Location: [facility] Radiology Reading Room 08:07 AMBASIC METABOLIC [id number] 05:21:00 Test Item Value Reference Range Comments SODIUM (BEAKER) (test 140 meq/L 136-145 bfxn=877) POTASSIUM (BEAKER) (test 4.2 meq/L 3.5-5.1 khgn=119) CHLORIDE (BEAKER) (test 105 meq/L 98-107 rccc=830) CO2 (BEAKER) (test 14 meq/L 22-29 bobx=557) BLOOD UREA NITROGEN 34 mg/dL 7-21 (BEAKER) (test thmf=499) CREATININE (BEAKER) (test 1.83 mg/dL 0.57-1.25 epnh=948) GLUCOSE RANDOM (BEAKER) 189 mg/dL 70-105 (test krmx=559) CALCIUM (BEAKER) (test 8.7 mg/dL 8.4-10.2 iakq=869) EGFR (BEAKER) (test 28 mL/min/1.73 sq m ESTIMATED GFR IS NOT xvtj=1952) ACCURATE CREATININE CLEARANCE IN PREDICTING GLOMERULAR FILTRATION RATE. ESTIMATED GFR IS NOT APPLICABLE FOR DIALYSIS PATIENTS. [id number] 04:32:00 Test Item Value Reference Range Comments FIBRINOGEN LEVEL (BEAKER) (test ljsj=316) 359 mg/dl 225-434 [id number] 04:32:00 Test Item Value Reference Range Comments PROTIME (BEAKER) (test cjts=904) 15.9 seconds 11.9-14.2 INR (BEAKER) (test rhkc=515) 1.3 <=5.9 PARTIAL THROMBOPLASTIN TIME (BEAKER) (test 40.2 seconds 22.5-36.0 eurl=329) Effective 09/26/2018: PT Reference Range ChangeNew: 11.9-14.2 Previous: 11.7- 14.7RECOMMENDED COUMADIN/WARFARIN INR THERAPY RANGESSTANDARD DOSE: 2.0-3.0 Includes: PROPHYLAXIS for venous thrombosis, systemic embolization; TREATMENT for venous thrombosis and/or pulmonary embolus.HIGH RISK: Target INR is2.5-3.5 for patients wiht mechanical heart valves.BLOOD GAS, [id number] 04:22:00 Test Item Value Reference Range Comments PH ARTERIAL (BEAKER) (test ntcw=771) 7.50 7.35-7.45 PCO2 ARTERIAL (BEAKER) (test dapb=796) 21 mmHg 35-45 PO2 ARTERIAL (BEAKER) (test jnte=324) 242 mmHg 80-90 O2 SATURATION ARTERIAL (BEAKER) (test jlii=127) 99.6 % 96.0-97.0 HCO3 ARTERIAL (BEAKER) (test rfpc=641) 16 mmol/L 21-29 BASE EXCESS ARTERIAL (BEAKER) (test nohn=640) -6.3 mmol/L -2.0-3.0 PATIENT TEMPERATURE (BEAKER) (test vdqu=9523) 37.0 C FIO2 (BEAKER) (test gcjr=2200) 40.0 % HEMOGLOBIN AND [id number] 04:17:00 Test Item Value Reference Range Comments HEMOGLOBIN (BEAKER) (test inyl=886) 7.6 GM/DL 11.2-15.7 HEMATOCRIT (BEAKER) (test gzuj=901) 22.2 % 34.1-44.9 CALCIUM, [id number] 00:34:00 Test Item Value Reference Range Comments CALCIUM IONIZED (BEAKER) (test ppcj=023) 1.15 mmol/L 1.12-1.27 PH, BLOOD (BEAKER) (test cdjv=9983) 7.51 HEMOGLOBIN AND [id number] 22:53:00 Test Item Value Reference Range Comments HEMOGLOBIN (BEAKER) (test farl=598) 6.8 GM/DL 11.2-15.7 HEMATOCRIT (BEAKER) (test mivy=368) 19.4 % 34.1-44.9 PLATELET [id number] 22:47:00 Test Item Value Reference Range Comments PLATELET COUNT (BEAKER) (test lled=001) 200 K/CU MM 150-450 BASIC METABOLIC [id number] 21:47:00 Test Item Value Reference Range Comments SODIUM (BEAKER) (test 139 meq/L 136-145 jvsc=537) POTASSIUM (BEAKER) (test 4.0 meq/L 3.5-5.1 zdhd=495) CHLORIDE (BEAKER) (test 104 meq/L 98-107 uxfz=939) CO2 (BEAKER) (test 16 meq/L 22-29 kbfn=219) BLOOD UREA NITROGEN 45 mg/dL 7-21 (BEAKER) (test xwup=500) CREATININE (BEAKER) (test 2.29 mg/dL 0.57-1.25 vrng=035) GLUCOSE RANDOM (BEAKER) 217 mg/dL 70-105 (test trrs=599) CALCIUM (BEAKER) (test 8.3 mg/dL 8.4-10.2 stzl=586) EGFR (BEAKER) (test 21 mL/min/1.73 sq m ESTIMATED GFR IS NOT kgve=1958) ACCURATE CREATININE CLEARANCE IN PREDICTING GLOMERULAR FILTRATION RATE. ESTIMATED GFR IS NOT APPLICABLE FOR DIALYSIS PATIENTS. [id number] 21:45:00 Test Item Value Reference Range Comments POTASSIUM (BEAKER) (test ednx=537) 4.0 meq/L 3.5-5.1 [id number] 21:45:00 Test Item Value Reference Range Comments MAGNESIUM (BEAKER) (test apzd=432) 2.0 mg/dL 1.6-2.6 [id number] 21:45:00 Test Item Value Reference Range Comments PHOSPHORUS (BEAKER) (test uybv=166) 3.2 mg/dL 2.3-4.7 [id number] 21:45:00 Test Item Value Reference Range Comments SODIUM (BEAKER) (test jvtf=673) 139 meq/L 136-145 [id number] 21:45:00 Test Item Value Reference Range Comments GLUCOSE RANDOM (BEAKER) (test wpxl=091) 217 mg/dL 70-105 PH, [id number] 21:25:00 Test Item Value Reference Range Comments PH ARTERIAL (BEAKER) (test ukij=887) 7.51 7.35-7.45 BASIC METABOLIC [id number] 16:15:00 Test Item Value Reference Range Comments SODIUM (BEAKER) (test 140 meq/L 136-145 fpkm=646) POTASSIUM (BEAKER) (test 3.9 meq/L 3.5-5.1 ipcw=011) CHLORIDE (BEAKER) (test 105 meq/L 98-107 xtpr=600) CO2 (BEAKER) (test 18 meq/L 22-29 jdts=104) BLOOD UREA NITROGEN 60 mg/dL 7-21 (BEAKER) (test sawg=582) CREATININE (BEAKER) (test 2.95 mg/dL 0.57-1.25 dngc=312) GLUCOSE RANDOM (BEAKER) 207 mg/dL 70-105 (test acak=268) CALCIUM (BEAKER) (test 8.1 mg/dL 8.4-10.2 gvuz=358) EGFR (BEAKER) (test 16 mL/min/1.73 sq m ESTIMATED GFR IS NOT mniz=6795) ACCURATE CREATININE CLEARANCE IN PREDICTING GLOMERULAR FILTRATION RATE. ESTIMATED GFR IS NOT APPLICABLE FOR DIALYSIS PATIENTS. HEMOGLOBIN AND [id number] 15:55:00 Test Item Value Reference Range Comments HEMOGLOBIN (BEAKER) (test dvji=411) 7.4 GM/DL 11.2-15.7 HEMATOCRIT (BEAKER) (test nyxm=037) 20.8 % 34.1-44.9 CALCIUM, [id number] 15:51:00 Test Item Value Reference Range Comments CALCIUM IONIZED (BEAKER) (test gdak=229) 1.09 mmol/L 1.12-1.27 PH, BLOOD (BEAKER) (test babf=8220) 7.47 PLATELET AGGREGATION: FUNCTION [id number] 15:31:00 Test Item Value Reference Range Comments WEAK ADP RESULT(BEAKER) (test 19 % 60-91 wkni=0533) PLATELET FUNCTION SCREEN 0-39% indicates marked platelet INTERP (BEAKER) (test dysfunction fxig=9461) [id number] Gina Meredith MD (BEAKER) (test flow=0026) (electronic signature) PLATELET COUNT AGG (BEAKER) 259 K/CU MM 150-450 (test kdvv=6960) Platelet Function Screen results may be falsely low with platelet counts<100, 000/cu mm.PLATELET AGGREGATION: FUNCTION [id number] 15:30:00 Test Item Value Reference Range Comments WEAK ADP RESULT(BEAKER) (test 75 % 60-91 rxvz=0781) PLATELET FUNCTION SCREEN 60-100% indicates normal INTERP (BEAKER) (test platelet function idsb=4514) [id number] (BEAKER) Gina Meredith MD (test kyaj=7543) (electronic signature) PLATELET COUNT AGG (BEAKER) 243 K/CU MM 150-450 (test djdl=9059) Platelet Function Screen results may be falsely low with platelet counts<100, 000/cu mm.[id number] 10:17:00 Test Item Value Reference Range Comments CORTISOL, TOTAL (BEAKER) (test gjrl=1368) 22.5 ug/dL 3.7-19.4 [id number] 09:52:00 Test Item Value Reference Range Comments FIBRINOGEN LEVEL (BEAKER) (test asje=912) 357 mg/dl 225-434 [id number] 09:52:00 Test Item Value Reference Range Comments PROTIME (BEAKER) (test vnwj=119) 16.9 seconds 11.9-14.2 INR (BEAKER) (test eddr=913) 1.5 <=5.9 PARTIAL THROMBOPLASTIN TIME (BEAKER) (test 38.9 seconds 22.5-36.0 xgwf=021) Effective 09/26/2018: PT Reference Range ChangeNew: 11.9-14.2 Previous: 11.7- 14.7RECOMMENDED COUMADIN/WARFARIN INR THERAPY RANGESSTANDARD DOSE: 2.0-3.0 Includes: PROPHYLAXIS for venous thrombosis, systemic embolization; TREATMENT for venous thrombosis and/or pulmonary embolus.HIGH RISK: Target INR is2.5-3.5 for patients wiht mechanical heart valves.RAD, CHEST, 1 VIEW, NON [id number] 09:04:00Reason for exam:->intubatedShould this be performed [...] Verified Date/Time: 11/08/2018 09: 04:33 Reading Location: [facility] Mammo Reading Room CT, CTA [id number] 09: 00:00Addendum BeginsREPORT STATUS:A Addendum: I have reviewed the nonvascular features of this examination and concur with Dr. Jacobs 's report. Signed: Carrie Quinteros MDReport VerifiedDate/Time: 11/08/2018 09:00: 35 Reading Location: [facility] P048 Angio Body Reading RoomAddendum EndsFINAL REPORT CT [...] vein. 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 Signed: Arvind Jacobs Verified Date/Time: 11/07/2018 17:44:36 Reading Location: [place] [address] Cardiology MRI POCT-GLUCOSE [id number] 08:59:00 Test Item Value Reference Range Comments POC-GLUCOSE METER (BEAKER) 224 mg/dL 70-110 TESTED AT [address] (test cney=3504) [facility] [address] HEMOGLOBIN AND [id number] 06:55:00 Test Item Value Reference Range Comments HEMOGLOBIN (BEAKER) (test szip=527) 6.6 GM/DL 11.2-15.7 HEMATOCRIT (BEAKER) (test eczl=303) 19.6 % 34.1-44.9 POCT-GLUCOSE [id number] 06:45:00 Test Item Value Reference Range Comments POC-GLUCOSE METER (BEAKER) 216 mg/dL 70-110 TESTED AT [address] (test gluo=7306) [facility] [address] THROMBOELASTOGRAPH (TEG)2018-11-08 04:46:00 Test Item Value Reference Range Comments TEG ACTIVATED CLOTTING TIME (BEAKER) (test 5.1 minutes 4.0-7.0 sfzi=8942) TEG FIBRINOGEN ACTIVITY (BEAKER) (test 77.7 degrees 61.0-73.0 xddu=0340) TEG PLT. AGGREGATION (BEAKER) (test plgn=9928) 73.4 MM 55.0-65.0 TEG FIBRINOLYSIS (BEAKER) (test ynea=0872) 0.4 % 0.0-5.0 TGH ACTIVATED CLOTTING TIME (BEAKER) (test 5.3 minutes 4.0-7.0 yxsj=1213) [facility]GH FIBRINOGEN ACTIVITY (BEAKER) (test 76.3 degrees 61.0-73.0 dzqd=0289) [facility] PLT. AGGREGATION (BEAKER) (test zrmy=7509) 64.4 MM 55.0-65.0 TGH FIBRINOLYSIS (BEAKER) (test vtgw=5040) 10.7 % 0.0-5.0 COMPREHENSIVE METABOLIC [id number] 04:00:00 Test Item Value Reference Range Comments TOTAL PROTEIN (BEAKER) 4.9 gm/dL 6.0-8.3 (test jion=874) ALBUMIN (BEAKER) (test 2.5 g/dL 3.5-5.0 qmzh=7205) ALKALINE PHOSPHATASE 78 U/L 40-150 (BEAKER) (test veil=934) BILIRUBIN TOTAL (BEAKER) 0.9 mg/dL 0.2-1.2 (test atbe=308) SODIUM (BEAKER) (test 137 meq/L 136-145 aezs=883) POTASSIUM (BEAKER) (test 3.6 meq/L 3.5-5.1 lmdj=891) CHLORIDE (BEAKER) (test 104 meq/L 98-107 jrxr=726) CO2 (BEAKER) (test 22 meq/L 22-29 fvqk=416) BLOOD UREA NITROGEN 72 mg/dL 7-21 (BEAKER) (test svdd=097) CREATININE (BEAKER) (test 2.99 mg/dL 0.57-1.25 gmxb=530) GLUCOSE RANDOM (BEAKER) 175 mg/dL 70-105 (test qvcr=407) CALCIUM (BEAKER) (test 8.1 mg/dL 8.4-10.2 osai=226) AST (SGOT) (BEAKER) (test 17 U/L 5-34 gnvf=904) ALT (SGPT) (BEAKER) (test 17 U/L 6-55 wyex=256) EGFR (BEAKER) (test 16 mL/min/1.73 sq m ESTIMATED GFR IS NOT wvjj=3627) ACCURATE CREATININE CLEARANCE IN PREDICTING GLOMERULAR FILTRATION RATE. ESTIMATED GFR IS NOT APPLICABLE FOR DIALYSIS PATIENTS. TROPONIN [id number] 03:58:00 Test Item Value Reference Range Comments TROPONIN I (BEAKER) (test iiuk=256) 1.09 ng/mL 0.00-0.03 Troponin I (TnI) levels [...] failure, acidosis, acute neurological disease, and persistent tachyarrhythmia.[id number] 03:42:00 Test Item Value Reference Range Comments TRIGLYCERIDES (BEAKER) (test isqi=268) 103 mg/dL TRIGLYCERIDE REFERENCE RANGELow Risk <150Borderline Risk 150-199High Risk 200-499Very High Risk>=[id number] 03:42:00 Test Item Value Reference Range Comments MAGNESIUM (BEAKER) (test dnnn=718) 2.2 mg/dL 1.6-2.6 [id number] 03:42:00 Test Item Value Reference Range Comments PHOSPHORUS (BEAKER) (test nnxl=449) 4.1 mg/dL 2.3-4.7 CREATINE KINASE (CK)2018-11-08 03:42:00 Test Item Value Reference Range Comments CREATINE KINASE TOTAL (BEAKER) (test ivys=109) 85 U/L 29-200 CBC W/PLT COUNT & AUTO [id number] 03:20:00 Test Item Value Reference Range Comments WHITE BLOOD CELL COUNT (BEAKER) (test vlwx=465) 8.5 K/ L 3.5-10.5 RED BLOOD CELL COUNT (BEAKER) (test xzve=061) 2.26 M/ L 3.93-5.22 HEMOGLOBIN (BEAKER) (test typh=278) 7.2 GM/DL 11.2-15.7 HEMATOCRIT (BEAKER) (test gkug=690) 21.0 % 34.1-44.9 MEAN CORPUSCULAR VOLUME (BEAKER) (test cjvo=934) 92.9 fL 79.4-94.8 MEAN CORPUSCULAR HEMOGLOBIN (BEAKER) (test 31.9 pg 25.6-32.2 xddd=653) MEAN CORPUSCULAR HEMOGLOBIN CONC (BEAKER) (test 34.3 GM/DL 32.2-35.5 gtux=885) RED CELL DISTRIBUTION WIDTH (BEAKER) (test 15.9 % 11.7-14.4 eper=681) PLATELET COUNT (BEAKER) (test mvei=898) 187 K/CU MM 150-450 MEAN PLATELET VOLUME (BEAKER) (test pdsg=344) 10.7 fL 9.4-12.3 NUCLEATED RED BLOOD CELLS (BEAKER) (test 0 /100 WBC 0-0 uhiu=414) NEUTROPHILS RELATIVE PERCENT (BEAKER) (test 70 % zphe=645) LYMPHOCYTES RELATIVE PERCENT (BEAKER) (test 14 % ajgf=795) MONOCYTES RELATIVE PERCENT (BEAKER) (test 11 % gqxa=685) EOSINOPHILS RELATIVE PERCENT (BEAKER) (test 4 % qhnm=324) BASOPHILS RELATIVE PERCENT (BEAKER) (test 1 % yqbu=227) NEUTROPHILS ABSOLUTE COUNT (BEAKER) (test 5.91 K/ L 1.56-6.13 gfgw=181) LYMPHOCYTES ABSOLUTE COUNT (BEAKER) (test 1.16 K/ L 1.18-3.74 gbef=795) MONOCYTES ABSOLUTE COUNT (BEAKER) (test 0.94 K/ L 0.24-0.36 hwdt=572) EOSINOPHILS ABSOLUTE COUNT (BEAKER) (test 0.32 K/ L 0.04-0.36 rckv=620) BASOPHILS ABSOLUTE COUNT (BEAKER) (test 0.04 K/ L 0.01-0.08 qwkw=971) IMMATURE GRANULOCYTES-RELATIVE PERCENT (BEAKER) 1 % 0-1 (test mwhu=1670) BLOOD GAS, [id number] 03:14:00 Test Item Value Reference Range Comments PH ARTERIAL (BEAKER) (test bcjs=524) 7.52 7.35-7.45 PCO2 ARTERIAL (BEAKER) (test ddqs=101) 30 mmHg 35-45 PO2 ARTERIAL (BEAKER) (test agzc=841) 174 mmHg 80-90 O2 SATURATION ARTERIAL (BEAKER) (test otro=548) 99.3 % 96.0-97.0 HCO3 ARTERIAL (BEAKER) (test geyc=200) 24 mmol/L 21-29 BASE EXCESS ARTERIAL (BEAKER) (test stmy=657) 1.0 mmol/L -2.0-3.0 PATIENT TEMPERATURE (BEAKER) (test uplh=4150) 37.5 C FIO2 (BEAKER) (test nszt=3397) 40.0 % CALCIUM, [id number] 03:14:00 Test Item Value Reference Range Comments CALCIUM IONIZED (BEAKER) (test jsgl=373) 1.10 mmol/L 1.12-1.27 PH, BLOOD (BEAKER) (test szmd=2332) 7.52 POCT-GLUCOSE [id number] 00:18:00 Test Item Value Reference Range Comments POC-GLUCOSE METER (BEAKER) 123 mg/dL 70-110 TESTED AT [facility] [address] [facility] (test gjhu=8995) [facility] [address] HEMOGLOBIN AND [id number] 22:17:00 Test Item Value Reference Range Comments HEMOGLOBIN (BEAKER) (test myhb=613) 6.9 GM/DL 11.2-15.7 HEMATOCRIT (BEAKER) (test ffev=313) 20.3 % 34.1-44.9 RAD, CHEST, 1 VIEW, NON [id number] 21:35:00Reason for exam:->GI bleed s/ p massive [...] Heath Verified Date/Time: 11/07/2018 21:35:28 Reading Location: [facility] [id number] Consult Reading Room 09 :35 PMPOCT-GLUCOSE [id number] 20:16:00 Test Item Value Reference Range Comments POC-GLUCOSE METER (Appoet) 164 mg/dL 70-110 TESTED AT [facility] [address] [facility] (test mnwl=0791) [facility] [address] [id number] 20:06:00 Test Item Value Reference Range Comments PROCALCITONIN (BEAKER) (test dnqx=6926) 6.03 ng/mL <0.05 SEPSIS RISK (ng/mL)Low: 0.05-0.50Intermediate: 0.51-2.00High: & gt;=2.01TROPONIN [id number] 20:01:00 Test Item Value Reference Range Comments TROPONIN I (Appoet) (test cbdd=878) 1.00 ng/mL 0.00-0.03 Troponin I (TnI) levels [...] acidosis, acute neurological disease, and persistent tachyarrhythmia.Call [phone] with resultsB-TYPE NATRIURETIC FACTOR (BNP)2018-11-07 19:59:00 Test Item Value Reference Range Comments B-TYPE NATRIURETIC PEPTIDE (GeoPollAKER) (test 495 pg/mL 0-100 uztv=187) [id number] 19:56:00 Test Item Value Reference Range Comments D-DIMER QUANTITATIVE (Appoet) (test dcpq=248) 2.82 MG/L FEU <0.50 Intended Use: The [...] of thrombosis is within 95-100% range.BASIC METABOLIC [id number] 19:54:00 Test Item Value Reference Range Comments SODIUM (BEAKER) (test 138 meq/L 136-145 piki=705) POTASSIUM (BEAKER) (test 3.5 meq/L 3.5-5.1 xwqb=566) CHLORIDE (BEAKER) (test 103 meq/L 98-107 wgnw=836) CO2 (BEAKER) (test 24 meq/L 22-29 uhnf=920) BLOOD UREA NITROGEN 67 mg/dL 7-21 (BEAKER) (test pebf=365) CREATININE (BEAKER) (test 2.79 mg/dL 0.57-1.25 oyib=419) GLUCOSE RANDOM (BEAKER) 178 mg/dL 70-105 (test ikrd=168) CALCIUM (BEAKER) (test 8.1 mg/dL 8.4-10.2 wvxg=244) EGFR (BEAKER) (test 17 mL/min/1.73 sq m ESTIMATED GFR IS NOT bdtz=4444) ACCURATE CREATININE CLEARANCE IN PREDICTING GLOMERULAR FILTRATION RATE. ESTIMATED GFR IS NOT APPLICABLE FOR DIALYSIS PATIENTS. Call [phone] with [id number] 19:54:00 Test Item Value Reference Range Comments FIBRINOGEN LEVEL (BEAKER) (test lgqp=162) 415 mg/dl 225-434 PT/[id number] 19:54:00 Test Item Value Reference Range Comments PROTIME (BEAKER) (test wprf=587) 15.8 seconds 11.9-14.2 INR (BEAKER) (test rlfy=585) 1.3 <=5.9 PARTIAL THROMBOPLASTIN TIME (BEAKER) (test 38.7 seconds 22.5-36.0 lcpr=470) Effective 09/26/2018: PT Reference Range ChangeNew: 11.9-14.2 Previous: 11.7- 14.7RECOMMENDED COUMADIN/WARFARIN INR THERAPY RANGESSTANDARD DOSE: 2.0-3.0 Includes: PROPHYLAXIS for venous thrombosis, systemic embolization; TREATMENT for venous thrombosis and/or pulmonary embolus.HIGH RISK: Target INR is2.5-3.5 for patients wiht mechanical heart valves.LACTIC ACID, [id number] 19:51: 00 Test Item Value Reference Range Comments LACTATE BLOOD ARTERIAL (2) (BEAKER) (test 0.7 mmol/L 0.5-2.2 ejzc=9256) [id number] 19:46:00 Test Item Value Reference Range Comments AMMONIA (BEAKER) (test ppls=176) 44 mol/L 18-72 BLOOD GAS, [id number] 19:37:00 Test Item Value Reference Range Comments PH ARTERIAL (BEAKER) (test hnzq=068) 7.44 7.35-7.45 PCO2 ARTERIAL (BEAKER) (test zqkg=835) 35 mmHg 35-45 PO2 ARTERIAL (BEAKER) (test cvrg=403) 427 mmHg 80-90 O2 SATURATION ARTERIAL (BEAKER) (test omxo=909) 99.8 % 96.0-97.0 HCO3 ARTERIAL (BEAKER) (test phmo=489) 23 mmol/L 21-29 BASE EXCESS ARTERIAL (BEAKER) (test zcai=601) -0.6 mmol/L -2.0-3.0 PATIENT TEMPERATURE (BEAKER) (test ohjf=9323) 36.5 C FIO2 (BEAKER) (test ogwz=9026) 100.0 % CALCIUM, [id number] 19:37:00 Test Item Value Reference Range Comments CALCIUM IONIZED (BEAKER) (test usro=736) 1.05 mmol/L 1.12-1.27 PH, BLOOD (BEAKER) (test rodq=1442) 7.43 CBC (HEMOGRAM ONLY)2018-11-07 19:36:00 Test Item Value Reference Range Comments WHITE BLOOD CELL COUNT (BEAKER) (test nhii=957) 8.8 K/ L 3.5-10.5 RED BLOOD CELL COUNT (BEAKER) (test rack=435) 2.38 M/ L 3.93-5.22 HEMOGLOBIN (BEAKER) (test csyl=803) 7.7 GM/DL 11.2-15.7 HEMATOCRIT (BEAKER) (test dwai=511) 23.2 % 34.1-44.9 MEAN CORPUSCULAR VOLUME (BEAKER) (test gdpr=360) 97.5 fL 79.4-94.8 MEAN CORPUSCULAR HEMOGLOBIN (BEAKER) (test 32.4 pg 25.6-32.2 aanw=785) MEAN CORPUSCULAR HEMOGLOBIN CONC (BEAKER) (test 33.2 GM/DL 32.2-35.5 jqie=203) RED CELL DISTRIBUTION WIDTH (BEAKER) (test 15.1 % 11.7-14.4 mfiw=430) PLATELET COUNT (BEAKER) (test mihh=025) 223 K/CU MM 150-450 MEAN PLATELET VOLUME (BEAKER) (test vxvr=281) 10.0 fL 9.4-12.3 NUCLEATED RED BLOOD CELLS (BEAKER) (test 0 /100 WBC 0-0 ubqb=587) HEMOGLOBIN AND [id number] 19:34:00 Test Item Value Reference Range Comments HEMOGLOBIN (BEAKER) (test cxfc=809) 7.7 GM/DL 11.2-15.7 HEMATOCRIT (BEAKER) (test hnuj=629) 23.2 % 34.1-44.9 RAD, CHEST, 1 VIEW, NON [id number] 16:18:00Reason for exam:-> baslineShould this be performed [...] of the right acromion. Signed: Carrie Quinteros MDReport Verified Date/Time:11/07/2018 16:18:12 Reading Location: [facility] Radiology Reading Room [facility] METABOLIC [id number] 15:44:00 Test Item Value Reference Range Comments SODIUM (BEAKER) (test 136 meq/L 136-145 dset=773) POTASSIUM (BEAKER) (test 4.2 meq/L 3.5-5.1 qsmh=763) CHLORIDE (BEAKER) (test 103 meq/L 98-107 obyx=195) CO2 (BEAKER) (test 22 meq/L 22-29 pdag=767) BLOOD UREA NITROGEN 73 mg/dL 7-21 (BEAKER) (test yaaz=163) CREATININE (BEAKER) (test 3.09 mg/dL 0.57-1.25 ctad=919) GLUCOSE RANDOM (BEAKER) 240 mg/dL 70-105 (test pekk=735) CALCIUM (BEAKER) (test 8.2 mg/dL 8.4-10.2 lwcd=360) EGFR (BEAKER) (test 15 mL/min/1.73 sq m ESTIMATED GFR IS NOT yckd=8539) ACCURATE CREATININE CLEARANCE IN PREDICTING GLOMERULAR FILTRATION RATE. ESTIMATED GFR IS NOT APPLICABLE FOR DIALYSIS PATIENTS. HEPATIC FUNCTION [id number] 15:35:00 Test Item Value Reference Range Comments TOTAL PROTEIN (BEAKER) (test miru=983) 5.7 gm/dL 6.0-8.3 ALBUMIN (BEAKER) (test mwjt=9983) 2.3 g/dL 3.5-5.0 BILIRUBIN TOTAL (BEAKER) (test acqf=835) 0.4 mg/dL 0.2-1.2 BILIRUBIN DIRECT (BEAKER) (test zzga=418) 0.3 mg/dL 0.1-0.5 ALKALINE PHOSPHATASE (BEAKER) (test owwk=421) 124 U/L 40-150 AST (SGOT) (BEAKER) (test rkvv=871) 38 U/L 5-34 ALT (SGPT) (BEAKER) (test zwtn=807) 28 U/L 6-55 TROPONIN [id number] 15:34:00 Test Item Value Reference Range Comments TROPONIN I (BEAKER) (test menl=136) 1.38 ng/mL 0.00-0.03 Troponin I (TnI) levels [...] acidosis, acute neurological disease, and persistent tachyarrhythmia.TROPONIN [id number] 15:03:00 Test Item Value Reference Range Comments TROPONIN I (BEAKER) (test amxd=435) 1.30 ng/mL 0.00-0.03 Troponin I (TnI) levels [...] acute neurological disease, and persistent tachyarrhythmia.BLOOD GAS, [id number] 15:00:00 Test Item Value Reference Range Comments PH ARTERIAL (BEAKER) (test bfto=379) 7.49 7.35-7.45 PCO2 ARTERIAL (BEAKER) (test wjdj=872) 30 mmHg 35-45 PO2 ARTERIAL (BEAKER) (test kmof=384) 101 mmHg 80-90 O2 SATURATION ARTERIAL (BEAKER) (test kose=884) 98.2 % 96.0-97.0 HCO3 ARTERIAL (BEAKER) (test rzcg=877) 22 mmol/L 21-29 BASE EXCESS ARTERIAL (BEAKER) (test hjmp=179) -0.7 mmol/L -2.0-3.0 PATIENT TEMPERATURE (BEAKER) (test myhe=1950) 36.5 C FIO2 (BEAKER) (test xdnl=9678) 21.0 % LACTIC ACID, [id number] 14:44:00 Test Item Value Reference Range Comments LACTATE BLOOD ARTERIAL (2) (BEAKER) (test 1.0 mmol/L 0.5-2.2 mtrg=0289) [id number] 14:35:00 Test Item Value Reference Range Comments PARTIAL THROMBOPLASTIN TIME (BEAKER) (test 37.9 seconds 22.5-36.0 icsy=949) PROTHROMBIN TIME/[id number] 14:34:00 Test Item Value Reference Range Comments PROTIME (BEAKER) (test lmti=821) 15.8 seconds 11.9-14.2 INR (BEAKER) (test iuzc=890) 1.3 <=5.9 Effective 09/26/2018: PT Reference Range ChangeNew: 11.9-14.2 Previous: 11.7- 14.7RECOMMENDED COUMADIN/WARFARIN INR THERAPY RANGESSTANDARD DOSE: 2.0-3.0 Includes: PROPHYLAXIS for venous thrombosis, systemic embolization; TREATMENT for venous thrombosis and/or pulmonary embolus.HIGH RISK: Target INR is2.5-3.5 for patients wiht mechanical heart valves.[id number] 14:34:00 Test Item Value Reference Range Comments FIBRINOGEN LEVEL (BEAKER) (test iwvy=170) 542 mg/dl 225-434 HEMOGLOBIN AND [id number] 14:26:00 Test Item Value Reference Range Comments HEMOGLOBIN (BEAKER) (test aaex=032) 8.0 GM/DL 11.2-15.7 HEMATOCRIT (BEAKER) (test adik=007) 25.7 % 34.1-44.9 POCT-GLUCOSE [id number] 13:58:00 Test Item Value Reference Range Comments POC-GLUCOSE METER (BEAKER) 283 mg/dL 70-110 TESTED AT [address] (test onsj=3390) [place] [id number] POCT-GLUCOSE [id number] 16:38:00 Test Item Value Reference Range Comments POC-GLUCOSE METER (BEAKER) 229 mg/dL 70-110 TESTED AT [address] (test oobh=8275) [place] [id number] POCT-GLUCOSE [id number] 13:23:00 Test Item Value Reference Range Comments POC-GLUCOSE METER (BEAKER) 148 mg/dL 70-110 TESTED AT [address] (test spbz=0675) [place] [id number] POCT-GLUCOSE [id number] 07:33:00 Test Item Value Reference Range Comments POC-GLUCOSE METER (BEAKER) 112 mg/dL 70-110 TESTED AT [address] (test dhkm=4407) [facility] [address] BASIC METABOLIC [id number] 06:07:00 Test Item Value Reference Range Comments SODIUM (BEAKER) (test 132 meq/L 136-145 fuud=323) POTASSIUM (BEAKER) (test 4.3 meq/L 3.5-5.1 rnjq=825) CHLORIDE (BEAKER) (test 97 meq/L 98-107 qkjc=825) CO2 (BEAKER) (test 23 meq/L 22-29 rskt=611) BLOOD UREA NITROGEN 45 mg/dL 7-21 (BEAKER) (test evez=540) CREATININE (BEAKER) (test 3.43 mg/dL 0.57-1.25 osar=488) GLUCOSE RANDOM (BEAKER) 98 mg/dL 70-105 (test tobu=353) CALCIUM (BEAKER) (test 9.0 mg/dL 8.4-10.2 ldqf=432) EGFR (BEAKER) (test 13 mL/min/1.73 sq m ESTIMATED GFR IS NOT trbv=9650) ACCURATE CREATININE CLEARANCE IN PREDICTING GLOMERULAR FILTRATION RATE. ESTIMATED GFR IS NOT APPLICABLE FOR DIALYSIS PATIENTS. [id number] 06:03:00 Test Item Value Reference Range Comments MAGNESIUM (BEAKER) (test zmgt=597) 1.8 mg/dL 1.6-2.6 CBC W/PLT COUNT & AUTO [id number] 05:46:00 Test Item Value Reference Range Comments WHITE BLOOD CELL COUNT (BEAKER) (test yvti=160) 9.9 K/ L 3.5-10.5 RED BLOOD CELL COUNT (BEAKER) (test osdz=404) 3.01 M/ L 3.93-5.22 HEMOGLOBIN (BEAKER) (test nntb=311) 8.8 GM/DL 11.2-15.7 HEMATOCRIT (BEAKER) (test oyhi=597) 28.2 % 34.1-44.9 MEAN CORPUSCULAR VOLUME (BEAKER) (test ymvx=984) 93.7 fL 79.4-94.8 MEAN CORPUSCULAR HEMOGLOBIN (BEAKER) (test 29.2 pg 25.6-32.2 eyaa=527) MEAN CORPUSCULAR HEMOGLOBIN CONC (BEAKER) (test 31.2 GM/DL 32.2-35.5 szjj=179) RED CELL DISTRIBUTION WIDTH (BEAKER) (test 15.8 % 11.7-14.4 uvpn=929) PLATELET COUNT (BEAKER) (test zvpn=099) 298 K/CU MM 150-450 MEAN PLATELET VOLUME (BEAKER) (test pgrv=471) 11.1 fL 9.4-12.3 NUCLEATED RED BLOOD CELLS (BEAKER) (test 0 /100 WBC 0-0 gccc=836) NEUTROPHILS RELATIVE PERCENT (BEAKER) (test 62 % pecq=174) LYMPHOCYTES RELATIVE PERCENT (BEAKER) (test 24 % cptm=756) MONOCYTES RELATIVE PERCENT (BEAKER) (test 10 % kpyc=583) EOSINOPHILS RELATIVE PERCENT (BEAKER) (test 3 % hvgh=724) BASOPHILS RELATIVE PERCENT (BEAKER) (test 1 % yutr=502) NEUTROPHILS ABSOLUTE COUNT (BEAKER) (test 6.10 K/ L 1.56-6.13 htzd=182) LYMPHOCYTES ABSOLUTE COUNT (BEAKER) (test 2.33 K/ L 1.18-3.74 yvuk=691) MONOCYTES ABSOLUTE COUNT (BEAKER) (test 0.98 K/ L 0.24-0.36 okfj=819) EOSINOPHILS ABSOLUTE COUNT (BEAKER) (test 0.33 K/ L 0.04-0.36 flzi=164) BASOPHILS ABSOLUTE COUNT (BEAKER) (test 0.08 K/ L 0.01-0.08 tzki=834) IMMATURE GRANULOCYTES-RELATIVE PERCENT (BEAKER) 1 % 0-1 (test tyad=3275) POCT-GLUCOSE [id number] 21:26:00 Test Item Value Reference Range Comments POC-GLUCOSE METER (BEAKER) 117 mg/dL 70-110 TESTED AT [address] (test muak=4886) [place] [address] POCT-GLUCOSE [id number] 16:18:00 Test Item Value Reference Range Comments POC-GLUCOSE METER (BEAKER) 72 mg/dL 70-110 TESTED AT [address] (test nizk=5174) [place] [address] POCT-GLUCOSE [id number] 11:37:00 Test Item Value Reference Range Comments POC-GLUCOSE METER (BEAKER) 191 mg/dL 70-110 TESTED AT [address] (test ilue=4282) [place] [address] POCT-GLUCOSE [id number] 07:21:00 Test Item Value Reference Range Comments POC-GLUCOSE METER (BEAKER) 129 mg/dL 70-110 TESTED AT [address] (test ndxx=2345) [place] [id number] BASIC METABOLIC [id number] 06:52:00 Test Item Value Reference Range Comments SODIUM (BEAKER) (test 137 meq/L 136-145 ytpv=805) POTASSIUM (BEAKER) (test 4.2 meq/L 3.5-5.1 vjvd=466) CHLORIDE (BEAKER) (test 100 meq/L 98-107 gefb=042) CO2 (BEAKER) (test 29 meq/L 22-29 sgmz=464) BLOOD UREA NITROGEN 26 mg/dL 7-21 (BEAKER) (test ueaz=049) CREATININE (BEAKER) (test 2.31 mg/dL 0.57-1.25 irev=426) GLUCOSE RANDOM (BEAKER) 100 mg/dL 70-105 (test qweo=257) CALCIUM (BEAKER) (test 9.0 mg/dL 8.4-10.2 lkiv=902) EGFR (BEAKER) (test 21 mL/min/1.73 sq m ESTIMATED GFR IS NOT rnzk=5999) ACCURATE CREATININE CLEARANCE IN PREDICTING GLOMERULAR FILTRATION RATE. ESTIMATED GFR IS NOT APPLICABLE FOR DIALYSIS PATIENTS. [id number] 06:47:00 Test Item Value Reference Range Comments MAGNESIUM (BEAKER) (test ibjw=378) 1.9 mg/dL 1.6-2.6 CBC W/PLT COUNT & AUTO [id number] 06:27:00 Test Item Value Reference Range Comments WHITE BLOOD CELL COUNT (BEAKER) (test hbkl=273) 8.1 K/ L 3.5-10.5 RED BLOOD CELL COUNT (BEAKER) (test keqv=609) 2.94 M/ L 3.93-5.22 HEMOGLOBIN (BEAKER) (test lkup=713) 8.7 GM/DL 11.2-15.7 HEMATOCRIT (BEAKER) (test umgd=506) 27.5 % 34.1-44.9 MEAN CORPUSCULAR VOLUME (BEAKER) (test dvdt=268) 93.5 fL 79.4-94.8 MEAN CORPUSCULAR HEMOGLOBIN (BEAKER) (test 29.6 pg 25.6-32.2 qyqg=380) MEAN CORPUSCULAR HEMOGLOBIN CONC (BEAKER) (test 31.6 GM/DL 32.2-35.5 coby=255) RED CELL DISTRIBUTION WIDTH (BEAKER) (test 15.8 % 11.7-14.4 lkkk=276) PLATELET COUNT (BEAKER) (test typi=111) 305 K/CU MM 150-450 MEAN PLATELET VOLUME (BEAKER) (test fich=052) 11.6 fL 9.4-12.3 NUCLEATED RED BLOOD CELLS (BEAKER) (test 0 /100 WBC 0-0 wsws=784) NEUTROPHILS RELATIVE PERCENT (BEAKER) (test 63 % bjbp=275) LYMPHOCYTES RELATIVE PERCENT (BEAKER) (test 21 % cmej=716) MONOCYTES RELATIVE PERCENT (BEAKER) (test 12 % jdot=886) EOSINOPHILS RELATIVE PERCENT (BEAKER) (test 2 % ccmw=821) BASOPHILS RELATIVE PERCENT (BEAKER) (test 1 % hfrn=901) NEUTROPHILS ABSOLUTE COUNT (BEAKER) (test 5.13 K/ L 1.56-6.13 ganl=756) LYMPHOCYTES ABSOLUTE COUNT (BEAKER) (test 1.72 K/ L 1.18-3.74 wtlt=983) MONOCYTES ABSOLUTE COUNT (BEAKER) (test 0.94 K/ L 0.24-0.36 kksi=283) EOSINOPHILS ABSOLUTE COUNT (BEAKER) (test 0.19 K/ L 0.04-0.36 qcpb=770) BASOPHILS ABSOLUTE COUNT (BEAKER) (test 0.07 K/ L 0.01-0.08 lrip=982) IMMATURE GRANULOCYTES-RELATIVE PERCENT (BEAKER) 1 % 0-1 (test tzvq=8144) POCT-GLUCOSE [id number] 21:28:00 Test Item Value Reference Range Comments POC-GLUCOSE METER (BEAKER) 126 mg/dL 70-110 TESTED AT [address] (test tpyz=5778) [facility] [address] POCT-GLUCOSE [id number] 17:04:00 Test Item Value Reference Range Comments POC-GLUCOSE METER (BEAKER) 112 mg/dL 70-110 TESTED AT [address] (test ernf=5957) [facility] [address] POCT-GLUCOSE [id number] 12:52:00 Test Item Value Reference Range Comments POC-GLUCOSE METER (BEAKER) 186 mg/dL 70-110 TESTED AT [address] (test rjsb=6264) [facility] [address] POCT-GLUCOSE [id number] 08:56:00 Test Item Value Reference Range Comments POC-GLUCOSE METER (BEAKER) 140 mg/dL 70-110 TESTED AT [facility] [address] (test jxdc=3426) [facility] [address] BASIC METABOLIC [id number] 07:35:00 Test Item Value Reference Range Comments SODIUM (BEAKER) (test 131 meq/L 136-145 ywji=838) POTASSIUM (BEAKER) (test 4.8 meq/L 3.5-5.1 ieiw=552) CHLORIDE (BEAKER) (test 97 meq/L 98-107 oujh=893) CO2 (BEAKER) (test 24 meq/L 22-29 tgtu=457) BLOOD UREA NITROGEN 56 mg/dL 7-21 (BEAKER) (test mcnz=126) CREATININE (BEAKER) (test 3.78 mg/dL 0.57-1.25 jqcq=515) GLUCOSE RANDOM (BEAKER) 107 mg/dL 70-105 (test bxmy=280) CALCIUM (BEAKER) (test 8.8 mg/dL 8.4-10.2 kcim=734) EGFR (BEAKER) (test 12 mL/min/1.73 sq m ESTIMATED GFR IS NOT pqpm=0543) ACCURATE CREATININE CLEARANCE IN PREDICTING GLOMERULAR FILTRATION RATE. ESTIMATED GFR IS NOT APPLICABLE FOR DIALYSIS PATIENTS. [id number] 07:29:00 Test Item Value Reference Range Comments MAGNESIUM (BEAKER) (test rbpa=110) 1.8 mg/dL 1.6-2.6 CBC W/PLT COUNT & AUTO [id number] 06:52:00 Test Item Value Reference Range Comments WHITE BLOOD CELL COUNT (BEAKER) (test jttc=329) 8.2 K/ L 3.5-10.5 RED BLOOD CELL COUNT (BEAKER) (test xpyx=367) 2.88 M/ L 3.93-5.22 HEMOGLOBIN (BEAKER) (test hnks=618) 8.3 GM/DL 11.2-15.7 HEMATOCRIT (BEAKER) (test mlnr=275) 27.1 % 34.1-44.9 MEAN CORPUSCULAR VOLUME (BEAKER) (test tigy=990) 94.1 fL 79.4-94.8 MEAN CORPUSCULAR HEMOGLOBIN (BEAKER) (test 28.8 pg 25.6-32.2 gntt=569) MEAN CORPUSCULAR HEMOGLOBIN CONC (BEAKER) (test 30.6 GM/DL 32.2-35.5 effi=039) RED CELL DISTRIBUTION WIDTH (BEAKER) (test 15.8 % 11.7-14.4 pvjb=550) PLATELET COUNT (BEAKER) (test vxgu=223) 299 K/CU MM 150-450 MEAN PLATELET VOLUME (BEAKER) (test brgx=853) 11.5 fL 9.4-12.3 NUCLEATED RED BLOOD CELLS (BEAKER) (test 0 /100 WBC 0-0 wqax=422) NEUTROPHILS RELATIVE PERCENT (BEAKER) (test 55 % bvbp=445) LYMPHOCYTES RELATIVE PERCENT (BEAKER) (test 27 % yurw=115) MONOCYTES RELATIVE PERCENT (BEAKER) (test 13 % lttu=113) EOSINOPHILS RELATIVE PERCENT (BEAKER) (test 4 % ahli=972) BASOPHILS RELATIVE PERCENT (BEAKER) (test 1 % yikh=411) NEUTROPHILS ABSOLUTE COUNT (BEAKER) (test 4.50 K/ L 1.56-6.13 mncj=622) LYMPHOCYTES ABSOLUTE COUNT (BEAKER) (test 2.20 K/ L 1.18-3.74 vehu=764) MONOCYTES ABSOLUTE COUNT (BEAKER) (test 1.08 K/ L 0.24-0.36 ovpq=786) EOSINOPHILS ABSOLUTE COUNT (BEAKER) (test 0.30 K/ L 0.04-0.36 fpfw=928) BASOPHILS ABSOLUTE COUNT (BEAKER) (test 0.06 K/ L 0.01-0.08 pbcu=700) IMMATURE GRANULOCYTES-RELATIVE PERCENT (BEAKER) 1 % 0-1 (test lykk=4560) POCT-GLUCOSE [id number] 20:55:00 Test Item Value Reference Range Comments POC-GLUCOSE METER (BEAKER) 125 mg/dL 70-110 TESTED AT [address] (test gbau=7938) [facility] [address] POCT-GLUCOSE [id number] 17:18:00 Test Item Value Reference Range Comments POC-GLUCOSE METER (BEAKER) 121 mg/dL 70-110 TESTED AT [address] (test xpfe=3791) [facility] [address] POCT-GLUCOSE [id number] 10:40:00 Test Item Value Reference Range Comments POC-GLUCOSE METER (BEAKER) 187 mg/dL 70-110 TESTED AT [address] (test gsdj=3041) [facility] [address] BASIC METABOLIC [id number] 07:02:00 Test Item Value Reference Range Comments SODIUM (BEAKER) (test 133 meq/L 136-145 kscc=185) POTASSIUM (BEAKER) (test 4.6 meq/L 3.5-5.1 mvee=116) CHLORIDE (BEAKER) (test 98 meq/L 98-107 maon=020) CO2 (BEAKER) (test 25 meq/L 22-29 emzu=376) BLOOD UREA NITROGEN 41 mg/dL 7-21 (BEAKER) (test ngxh=451) CREATININE (BEAKER) (test 2.98 mg/dL 0.57-1.25 frud=529) GLUCOSE RANDOM (BEAKER) 131 mg/dL 70-105 (test bkml=615) CALCIUM (BEAKER) (test 9.0 mg/dL 8.4-10.2 orqk=044) EGFR (BEAKER) (test 16 mL/min/1.73 sq m ESTIMATED GFR IS NOT jcja=4296) ACCURATE CREATININE CLEARANCE IN PREDICTING GLOMERULAR FILTRATION RATE. ESTIMATED GFR IS NOT APPLICABLE FOR DIALYSIS PATIENTS. POCT-GLUCOSE [id number] 06:53:00 Test Item Value Reference Range Comments POC-GLUCOSE METER (BEAKER) 145 mg/dL 70-110 TESTED AT [place] [address] [facility] (test rrcv=3079) [facility] [address] CALCIUM, [id number] 06:50:00 Test Item Value Reference Range Comments CALCIUM IONIZED (BEAKER) (test fvso=721) 1.03 mmol/L 1.12-1.27 PH, BLOOD (BEAKER) (test sclk=8356) 7.53 [id number] 06:47:00 Test Item Value Reference Range Comments PHOSPHORUS (BEAKER) (test tvzd=535) 4.1 mg/dL 2.3-4.7 [id number] 06:47:00 Test Item Value Reference Range Comments MAGNESIUM (BEAKER) (test yshv=657) 1.8 mg/dL 1.6-2.6 CBC W/PLT COUNT & AUTO [id number] 06:27:00 Test Item Value Reference Range Comments WHITE BLOOD CELL COUNT (BEAKER) (test ptmf=452) 7.9 K/ L 3.5-10.5 RED BLOOD CELL COUNT (BEAKER) (test iryx=796) 3.17 M/ L 3.93-5.22 HEMOGLOBIN (BEAKER) (test xrcl=859) 9.3 GM/DL 11.2-15.7 HEMATOCRIT (BEAKER) (test vzfc=197) 28.8 % 34.1-44.9 MEAN CORPUSCULAR VOLUME (BEAKER) (test cmid=023) 90.9 fL 79.4-94.8 MEAN CORPUSCULAR HEMOGLOBIN (BEAKER) (test 29.3 pg 25.6-32.2 jfld=659) MEAN CORPUSCULAR HEMOGLOBIN CONC (BEAKER) (test 32.3 GM/DL 32.2-35.5 jsed=255) RED CELL DISTRIBUTION WIDTH (BEAKER) (test 15.5 % 11.7-14.4 wzqg=674) PLATELET COUNT (BEAKER) (test wccj=721) 328 K/CU MM 150-450 MEAN PLATELET VOLUME (BEAKER) (test ibxr=511) 11.5 fL 9.4-12.3 NUCLEATED RED BLOOD CELLS (BEAKER) (test 0 /100 WBC 0-0 nzun=180) NEUTROPHILS RELATIVE PERCENT (BEAKER) (test 69 % qrzn=094) LYMPHOCYTES RELATIVE PERCENT (BEAKER) (test 17 % mcad=114) MONOCYTES RELATIVE PERCENT (BEAKER) (test 11 % tfye=679) EOSINOPHILS RELATIVE PERCENT (BEAKER) (test 1 % unfj=807) BASOPHILS RELATIVE PERCENT (BEAKER) (test 1 % hjmv=013) NEUTROPHILS ABSOLUTE COUNT (BEAKER) (test 5.48 K/ L 1.56-6.13 lpig=379) LYMPHOCYTES ABSOLUTE COUNT (BEAKER) (test 1.33 K/ L 1.18-3.74 brgo=524) MONOCYTES ABSOLUTE COUNT (BEAKER) (test 0.90 K/ L 0.24-0.36 ioha=477) EOSINOPHILS ABSOLUTE COUNT (BEAKER) (test 0.11 K/ L 0.04-0.36 tbgj=934) BASOPHILS ABSOLUTE COUNT (BEAKER) (test 0.04 K/ L 0.01-0.08 ieuy=671) IMMATURE GRANULOCYTES-RELATIVE PERCENT (BEAKER) 1 % 0-1 (test dlqd=1807) POCT-GLUCOSE [id number] 23:08:00 Test Item Value Reference Range Comments POC-GLUCOSE METER (BEAKER) 189 mg/dL 70-110 TESTED AT [address] (test skmy=0405) [facility] [address] ANG, TUNNELED CATHETER [id number] 14:52:00Reason for exam:-> Tunneled hemodialysis catheter insertionFINAL [...] real time ultrasound guidance. Images were stored onZarbee's. Fluoroscopic assistance was then provided to place a catheter that was tunneled subcutaneouslyalong the right anterior chest. The tip of the catheter was positioned in the right atrium. The patient tolerated the procedure well without difficulty. Estimated blood loss was 10 ml . Conclusion: Placement of tunneled hemodialysis catheter. Signed: Carrie Quinteros MDRepst. [facility] Verified Date/Time: 06/04/2018 14:52:23 Reading Location: [place] [address] Angio Body Reading Room HEPATITIS B [id number] 12:38:00 Test Item Value Reference Range Comments HEPATITIS B CORE TOTAL ANTIBODY (BEAKER) (test Nonreactive Nonreactive icnn=721) HEPATITIS B SURFACE ANTIBODY (BEAKER) (test 18.1 mIU/mL <8.0 lacx=463) HEPATITIS B SURFACE ANTIGEN (2) (BEAKER) (test Nonreactive Nonreactive ygpp=6596) POCT-GLUCOSE [id number] 12:14:00 Test Item Value Reference Range Comments POC-GLUCOSE METER (BEAKER) 141 mg/dL 70-110 TESTED AT [address] (test txee=5381) [facility] [address] PROTHROMBIN [id number] 10:32:00 Test Item Value Reference Range Comments PROTIME (BEAKER) (test xrsk=767) 14.6 seconds 11.7-14.7 INR (BEAKER) (test owfp=276) 1.1 <=5.9 RECOMMENDED COUMADIN/WARFARIN INR THERAPY RANGESSTANDARD DOSE: 2.0 - 3.0 Includes: PROPHYLAXIS forvenous thrombosis, systemic embolization; TREATMENT for venous thrombosis and/or pulmonary embolus.HIGH RISK: Target INR is 2.5-3.5 for patients with mechanical heart valves.POCT-GLUCOSE [id number] 08:51:00 Test Item Value Reference Range Comments POC-GLUCOSE METER (BEAKER) 153 mg/dL 70-110 TESTED AT [address] (test csql=2841) [place] [id number] BASIC METABOLIC [id number] 04:51:00 Test Item Value Reference Range Comments SODIUM (BEAKER) (test 131 meq/L 136-145 jdrn=961) POTASSIUM (BEAKER) (test 5.3 meq/L 3.5-5.1 vvax=962) CHLORIDE (BEAKER) (test 96 meq/L 98-107 qvgw=207) CO2 (BEAKER) (test 21 meq/L 22-29 cswp=206) BLOOD UREA NITROGEN 91 mg/dL 7-21 (BEAKER) (test hkgh=760) CREATININE (BEAKER) (test 5.00 mg/dL 0.57-1.25 urjc=058) GLUCOSE RANDOM (BEAKER) 120 mg/dL 70-105 (test llzd=953) CALCIUM (BEAKER) (test 8.8 mg/dL 8.4-10.2 nazx=522) EGFR (BEAKER) (test 9 mL/min/1.73 sq m ESTIMATED GFR IS NOT ljqe=1254) ACCURATE CREATININE CLEARANCE IN PREDICTING GLOMERULAR FILTRATION RATE. ESTIMATED GFR IS NOT APPLICABLE FOR DIALYSIS PATIENTS. [id number] 04:49:00 Test Item Value Reference Range Comments MAGNESIUM (BEAKER) (test aojs=630) 1.8 mg/dL 1.6-2.6 CBC W/PLT COUNT & AUTO [id number] 04:29:00 Test Item Value Reference Range Comments WHITE BLOOD CELL COUNT (BEAKER) (test fxts=599) 8.9 K/ L 3.5-10.5 RED BLOOD CELL COUNT (BEAKER) (test bmdj=274) 2.70 M/ L 3.93-5.22 HEMOGLOBIN (BEAKER) (test zhli=552) 7.8 GM/DL 11.2-15.7 HEMATOCRIT (BEAKER) (test oude=683) 24.4 % 34.1-44.9 MEAN CORPUSCULAR VOLUME (BEAKER) (test wmxf=411) 90.4 fL 79.4-94.8 MEAN CORPUSCULAR HEMOGLOBIN (BEAKER) (test 28.9 pg 25.6-32.2 pysw=950) MEAN CORPUSCULAR HEMOGLOBIN CONC (BEAKER) (test 32.0 GM/DL 32.2-35.5 vwcp=117) RED CELL DISTRIBUTION WIDTH (BEAKER) (test 15.2 % 11.7-14.4 bari=742) PLATELET COUNT (BEAKER) (test jznq=420) 312 K/CU MM 150-450 MEAN PLATELET VOLUME (BEAKER) (test gaxo=585) 11.9 fL 9.4-12.3 NUCLEATED RED BLOOD CELLS (BEAKER) (test 0 /100 WBC 0-0 yyxl=585) NEUTROPHILS RELATIVE PERCENT (BEAKER) (test 62 % nylt=665) LYMPHOCYTES RELATIVE PERCENT (BEAKER) (test 23 % puyk=439) MONOCYTES RELATIVE PERCENT (BEAKER) (test 10 % kdds=114) EOSINOPHILS RELATIVE PERCENT (BEAKER) (test 5 % mnlu=165) BASOPHILS RELATIVE PERCENT (BEAKER) (test 1 % seqp=913) NEUTROPHILS ABSOLUTE COUNT (BEAKER) (test 5.48 K/ L 1.56-6.13 kzet=435) LYMPHOCYTES ABSOLUTE COUNT (BEAKER) (test 2.02 K/ L 1.18-3.74 epcj=603) MONOCYTES ABSOLUTE COUNT (BEAKER) (test 0.86 K/ L 0.24-0.36 hcck=115) EOSINOPHILS ABSOLUTE COUNT (BEAKER) (test 0.41 K/ L 0.04-0.36 iqwj=352) BASOPHILS ABSOLUTE COUNT (BEAKER) (test 0.06 K/ L 0.01-0.08 jdgr=267) IMMATURE GRANULOCYTES-RELATIVE PERCENT (BEAKER) 1 % 0-1 (test dimj=7043) POCT-GLUCOSE [id number] 22:21:00 Test Item Value Reference Range Comments POC-GLUCOSE METER (BEAKER) 96 mg/dL 70-110 TESTED AT [address] (test wfbc=9736) [place] [id number] POCT-GLUCOSE [id number] 17:52:00 Test Item Value Reference Range Comments POC-GLUCOSE METER (BEAKER) 154 mg/dL 70-110 TESTED AT [address] (test bnqa=2302) [place] [id number] POCT-GLUCOSE [id number] 12:20:00 Test Item Value Reference Range Comments POC-GLUCOSE METER (BEAKER) 120 mg/dL 70-110 TESTED AT [address] (test omyl=7448) [place] [address] POCT-GLUCOSE [id number] 08:55:00 Test Item Value Reference Range Comments POC-GLUCOSE METER (BEAKER) 123 mg/dL 70-110 TESTED AT [address] (test pvfp=9645) [place] [id number] BASIC METABOLIC [id number] 06:54:00 Test Item Value Reference Range Comments SODIUM (BEAKER) (test 131 meq/L 136-145 zrzn=313) POTASSIUM (BEAKER) (test 4.8 meq/L 3.5-5.1 hqih=993) CHLORIDE (BEAKER) (test 97 meq/L 98-107 ulep=953) CO2 (BEAKER) (test 21 meq/L 22-29 fryd=464) BLOOD UREA NITROGEN 70 mg/dL 7-21 (BEAKER) (test xclv=869) CREATININE (BEAKER) (test 4.49 mg/dL 0.57-1.25 kwde=783) GLUCOSE RANDOM (BEAKER) 120 mg/dL 70-105 (test utnx=620) CALCIUM (BEAKER) (test 8.5 mg/dL 8.4-10.2 vwic=225) EGFR (BEAKER) (test 10 mL/min/1.73 sq m ESTIMATED GFR IS NOT llnd=4033) ACCURATE CREATININE CLEARANCE IN PREDICTING GLOMERULAR FILTRATION RATE. ESTIMATED GFR IS NOT APPLICABLE FOR DIALYSIS PATIENTS. [id number] 06:31:00 Test Item Value Reference Range Comments MAGNESIUM (BEAKER) (test nzyz=465) 1.7 mg/dL 1.6-2.6 CBC W/PLT COUNT & AUTO [id number] 05:08:00 Test Item Value Reference Range Comments WHITE BLOOD CELL COUNT (BEAKER) (test nynb=776) 11.2 K/ L 3.5-10.5 RED BLOOD CELL COUNT (BEAKER) (test oggb=496) 2.74 M/ L 3.93-5.22 HEMOGLOBIN (BEAKER) (test eezh=723) 8.0 GM/DL 11.2-15.7 HEMATOCRIT (BEAKER) (test uaws=645) 25.1 % 34.1-44.9 MEAN CORPUSCULAR VOLUME (BEAKER) (test chcw=963) 91.6 fL 79.4-94.8 MEAN CORPUSCULAR HEMOGLOBIN (BEAKER) (test 29.2 pg 25.6-32.2 gnga=778) MEAN CORPUSCULAR HEMOGLOBIN CONC (BEAKER) (test 31.9 GM/DL 32.2-35.5 nzpi=634) RED CELL DISTRIBUTION WIDTH (BEAKER) (test 15.4 % 11.7-14.4 jqyt=706) PLATELET COUNT (BEAKER) (test ohim=509) 310 K/CU MM 150-450 MEAN PLATELET VOLUME (BEAKER) (test xdax=871) 11.5 fL 9.4-12.3 NUCLEATED RED BLOOD CELLS (BEAKER) (test 0 /100 WBC 0-0 akqy=467) NEUTROPHILS RELATIVE PERCENT (BEAKER) (test 64 % gruo=280) LYMPHOCYTES RELATIVE PERCENT (BEAKER) (test 22 % btlx=167) MONOCYTES RELATIVE PERCENT (BEAKER) (test 11 % yibq=920) EOSINOPHILS RELATIVE PERCENT (BEAKER) (test 3 % vaay=469) BASOPHILS RELATIVE PERCENT (BEAKER) (test 1 % tsof=204) NEUTROPHILS ABSOLUTE COUNT (BEAKER) (test 7.10 K/ L 1.56-6.13 popm=717) LYMPHOCYTES ABSOLUTE COUNT (BEAKER) (test 2.42 K/ L 1.18-3.74 vrqi=094) MONOCYTES ABSOLUTE COUNT (BEAKER) (test 1.18 K/ L 0.24-0.36 rrxp=409) EOSINOPHILS ABSOLUTE COUNT (BEAKER) (test 0.29 K/ L 0.04-0.36 krhq=655) BASOPHILS ABSOLUTE COUNT (BEAKER) (test 0.06 K/ L 0.01-0.08 mnzf=172) IMMATURE GRANULOCYTES-RELATIVE PERCENT (BEAKER) 1 % 0-1 (test qysh=5104) POCT-GLUCOSE [id number] 20:53:00 Test Item Value Reference Range Comments POC-GLUCOSE METER (BEAKER) 307 mg/dL 70-110 Notified SAMAN HERNANDEZ/TESTED AT [facility] (test uyvb=0375) [address] [place] [address] POCT-GLUCOSE [id number] 16:48:00 Test Item Value Reference Range Comments POC-GLUCOSE METER (BEAKER) 262 mg/dL 70-110 TESTED AT [address] (test wjkf=1934) [place] [id number] POCT-GLUCOSE [id number] 15:33:00 Test Item Value Reference Range Comments POC-GLUCOSE METER (BEAKER) 204 mg/dL 70-110 TESTED AT [address] (test ueee=5635) [place] [id number] POCT-GLUCOSE [id number] 08:38:00 Test Item Value Reference Range Comments POC-GLUCOSE METER (BEAKER) 143 mg/dL 70-110 TESTED AT [address] (test kofa=3871) [facility] [address] BASIC METABOLIC [id number] 04:30:00 Test Item Value Reference Range Comments SODIUM (BEAKER) (test 134 meq/L 136-145 bkpq=375) POTASSIUM (BEAKER) (test 4.3 meq/L 3.5-5.1 klzv=836) CHLORIDE (BEAKER) (test 98 meq/L 98-107 gkvl=888) CO2 (BEAKER) (test 25 meq/L 22-29 gkdv=336) BLOOD UREA NITROGEN 51 mg/dL 7-21 (BEAKER) (test khfg=447) CREATININE (BEAKER) (test 3.85 mg/dL 0.57-1.25 vtes=515) GLUCOSE RANDOM (BEAKER) 133 mg/dL 70-105 (test rlqn=003) CALCIUM (BEAKER) (test 8.7 mg/dL 8.4-10.2 znnl=813) EGFR (BEAKER) (test 12 mL/min/1.73 sq m ESTIMATED GFR IS NOT upbv=2983) ACCURATE CREATININE CLEARANCE IN PREDICTING GLOMERULAR FILTRATION RATE. ESTIMATED GFR IS NOT APPLICABLE FOR DIALYSIS PATIENTS. [id number] 04:16:00 Test Item Value Reference Range Comments MAGNESIUM (BEAKER) (test dnuf=953) 1.8 mg/dL 1.6-2.6 CBC W/PLT COUNT & AUTO [id number] 03:57:00 Test Item Value Reference Range Comments WHITE BLOOD CELL COUNT (BEAKER) (test dcgt=809) 10.3 K/ L 3.5-10.5 RED BLOOD CELL COUNT (BEAKER) (test edsr=893) 2.83 M/ L 3.93-5.22 HEMOGLOBIN (BEAKER) (test ensh=355) 8.2 GM/DL 11.2-15.7 HEMATOCRIT (BEAKER) (test uwse=559) 26.0 % 34.1-44.9 MEAN CORPUSCULAR VOLUME (BEAKER) (test rhwl=767) 91.9 fL 79.4-94.8 MEAN CORPUSCULAR HEMOGLOBIN (BEAKER) (test 29.0 pg 25.6-32.2 bfzt=904) MEAN CORPUSCULAR HEMOGLOBIN CONC (BEAKER) (test 31.5 GM/DL 32.2-35.5 wmnn=877) RED CELL DISTRIBUTION WIDTH (BEAKER) (test 15.2 % 11.7-14.4 jinz=457) PLATELET COUNT (BEAKER) (test qcxh=770) 357 K/CU MM 150-450 MEAN PLATELET VOLUME (BEAKER) (test dbap=420) 11.5 fL 9.4-12.3 NUCLEATED RED BLOOD CELLS (BEAKER) (test 0 /100 WBC 0-0 xnkj=000) NEUTROPHILS RELATIVE PERCENT (BEAKER) (test 65 % rqxe=031) LYMPHOCYTES RELATIVE PERCENT (BEAKER) (test 21 % tjbh=511) MONOCYTES RELATIVE PERCENT (BEAKER) (test 10 % cusp=676) EOSINOPHILS RELATIVE PERCENT (BEAKER) (test 2 % jlki=548) BASOPHILS RELATIVE PERCENT (BEAKER) (test 1 % hakp=532) NEUTROPHILS ABSOLUTE COUNT (BEAKER) (test 6.67 K/ L 1.56-6.13 aric=539) LYMPHOCYTES ABSOLUTE COUNT (BEAKER) (test 2.19 K/ L 1.18-3.74 gakl=856) MONOCYTES ABSOLUTE COUNT (BEAKER) (test 1.05 K/ L 0.24-0.36 umrq=546) EOSINOPHILS ABSOLUTE COUNT (BEAKER) (test 0.25 K/ L 0.04-0.36 loqa=311) BASOPHILS ABSOLUTE COUNT (BEAKER) (test 0.07 K/ L 0.01-0.08 cjwu=990) IMMATURE GRANULOCYTES-RELATIVE PERCENT (BEAKER) 1 % 0-1 (test dvdc=1100) POCT-GLUCOSE [id number] 21:00:00 Test Item Value Reference Range Comments POC-GLUCOSE METER (BEAKER) 286 mg/dL 70-110 TESTED AT [address] (test iffp=7652) [facility] [address] POCT-GLUCOSE [id number] 20:08:00 Test Item Value Reference Range Comments POC-GLUCOSE METER (BEAKER) 317 mg/dL 70-110 TESTED AT [address] (test ybbv=4672) [facility] [address] POCT-GLUCOSE [id number] 11:48:00 Test Item Value Reference Range Comments POC-GLUCOSE METER (BEAKER) 249 mg/dL 70-110 TESTED AT [address] (test wykd=0205) [facility] [address] POCT-GLUCOSE [id number] 08:11:00 Test Item Value Reference Range Comments POC-GLUCOSE METER (BEAKER) 236 mg/dL 70-110 TESTED AT [address] (test axbx=3423) [facility] [address] [id number] 06:57:00 Test Item Value Reference Range Comments MAGNESIUM (BEAKER) (test qsyj=601) 1.9 mg/dL 1.6-2.6 BASIC METABOLIC [id number] 06:57:00 Test Item Value Reference Range Comments SODIUM (BEAKER) (test 135 meq/L 136-145 uwez=826) POTASSIUM (BEAKER) (test 4.1 meq/L 3.5-5.1 zwtg=394) CHLORIDE (BEAKER) (test 99 meq/L 98-107 gtmd=418) CO2 (BEAKER) (test 25 meq/L 22-29 gyyr=329) BLOOD UREA NITROGEN 26 mg/dL 7-21 (BEAKER) (test eorr=645) CREATININE (BEAKER) (test 2.97 mg/dL 0.57-1.25 tckw=696) GLUCOSE RANDOM (BEAKER) 226 mg/dL 70-105 (test mgmx=030) CALCIUM (BEAKER) (test 8.6 mg/dL 8.4-10.2 riec=342) EGFR (BEAKER) (test 16 mL/min/1.73 sq m ESTIMATED GFR IS NOT jisv=6346) ACCURATE CREATININE CLEARANCE IN PREDICTING GLOMERULAR FILTRATION RATE. ESTIMATED GFR IS NOT APPLICABLE FOR DIALYSIS PATIENTS. CBC W/PLT COUNT & AUTO [id number] 06:34:00 Test Item Value Reference Range Comments WHITE BLOOD CELL COUNT (BEAKER) (test oafk=473) 9.8 K/ L 3.5-10.5 RED BLOOD CELL COUNT (BEAKER) (test lkxv=380) 2.89 M/ L 3.93-5.22 HEMOGLOBIN (BEAKER) (test obus=554) 8.5 GM/DL 11.2-15.7 HEMATOCRIT (BEAKER) (test xxiy=542) 26.8 % 34.1-44.9 MEAN CORPUSCULAR VOLUME (BEAKER) (test lstk=148) 92.7 fL 79.4-94.8 MEAN CORPUSCULAR HEMOGLOBIN (BEAKER) (test 29.4 pg 25.6-32.2 xadb=223) MEAN CORPUSCULAR HEMOGLOBIN CONC (BEAKER) (test 31.7 GM/DL 32.2-35.5 lcph=307) RED CELL DISTRIBUTION WIDTH (BEAKER) (test 15.2 % 11.7-14.4 kolw=279) PLATELET COUNT (BEAKER) (test gdqg=046) 348 K/CU MM 150-450 MEAN PLATELET VOLUME (BEAKER) (test lqno=335) 11.7 fL 9.4-12.3 NUCLEATED RED BLOOD CELLS (BEAKER) (test 0 /100 WBC 0-0 ukbk=712) NEUTROPHILS RELATIVE PERCENT (BEAKER) (test 72 % mcfd=305) LYMPHOCYTES RELATIVE PERCENT (BEAKER) (test 16 % yxgp=130) MONOCYTES RELATIVE PERCENT (BEAKER) (test 9 % waat=554) EOSINOPHILS RELATIVE PERCENT (BEAKER) (test 2 % rulz=866) BASOPHILS RELATIVE PERCENT (BEAKER) (test 1 % cplq=931) NEUTROPHILS ABSOLUTE COUNT (BEAKER) (test 7.03 K/ L 1.56-6.13 yfsr=432) LYMPHOCYTES ABSOLUTE COUNT (BEAKER) (test 1.56 K/ L 1.18-3.74 agpt=702) MONOCYTES ABSOLUTE COUNT (BEAKER) (test 0.88 K/ L 0.24-0.36 mpdv=591) EOSINOPHILS ABSOLUTE COUNT (BEAKER) (test 0.17 K/ L 0.04-0.36 ccfx=884) BASOPHILS ABSOLUTE COUNT (BEAKER) (test 0.05 K/ L 0.01-0.08 iqmv=638) IMMATURE GRANULOCYTES-RELATIVE PERCENT (BEAKER) 1 % 0-1 (test skqt=2938) POCT-GLUCOSE [id number] 21:44:00 Test Item Value Reference Range Comments POC-GLUCOSE METER (BEAKER) 220 mg/dL 70-110 TESTED AT [address] (test oacf=9109) [place] [address] POCT-GLUCOSE [id number] 17:01:00 Test Item Value Reference Range Comments POC-GLUCOSE METER (BEAKER) 272 mg/dL 70-110 TESTED AT [address] (test luih=4676) [place] [address] POCT-GLUCOSE [id number] 13:06:00 Test Item Value Reference Range Comments POC-GLUCOSE METER (BEAKER) 323 mg/dL 70-110 Notified SAMAN HERNANDEZ/TESTED AT [facility] (test afxg=0308) [address] [place] [address] POCT-GLUCOSE [id number] 07:30:00 Test Item Value Reference Range Comments POC-GLUCOSE METER (BEAKER) 284 mg/dL 70-110 TESTED AT [address] (test wzvu=7234) [place] [address] BASIC METABOLIC [id number] 06:58:00 Test Item Value Reference Range Comments SODIUM (BEAKER) (test 132 meq/L 136-145 qlmn=635) POTASSIUM (BEAKER) (test 4.0 meq/L 3.5-5.1 gycv=980) CHLORIDE (BEAKER) (test 95 meq/L 98-107 gwbe=844) CO2 (BEAKER) (test 25 meq/L 22-29 sayt=236) BLOOD UREA NITROGEN 45 mg/dL 7-21 (BEAKER) (test fbpi=848) CREATININE (BEAKER) (test 4.37 mg/dL 0.57-1.25 gtdl=653) GLUCOSE RANDOM (BEAKER) 136 mg/dL 70-105 (test cwiy=928) CALCIUM (BEAKER) (test 9.2 mg/dL 8.4-10.2 slfx=951) EGFR (BEAKER) (test 10 mL/min/1.73 sq m ESTIMATED GFR IS NOT qurp=7806) ACCURATE CREATININE CLEARANCE IN PREDICTING GLOMERULAR FILTRATION RATE. ESTIMATED GFR IS NOT APPLICABLE FOR DIALYSIS PATIENTS. [id number] 06:56:00 Test Item Value Reference Range Comments MAGNESIUM (BEAKER) (test xqsd=560) 1.8 mg/dL 1.6-2.6 CBC W/PLT COUNT & AUTO [id number] 06:39:00 Test Item Value Reference Range Comments WHITE BLOOD CELL COUNT (BEAKER) (test yjue=249) 10.9 K/ L 3.5-10.5 RED BLOOD CELL COUNT (BEAKER) (test zhxn=258) 2.94 M/ L 3.93-5.22 HEMOGLOBIN (BEAKER) (test hbzw=781) 8.7 GM/DL 11.2-15.7 HEMATOCRIT (BEAKER) (test cnph=707) 27.2 % 34.1-44.9 MEAN CORPUSCULAR VOLUME (BEAKER) (test qfca=162) 92.5 fL 79.4-94.8 MEAN CORPUSCULAR HEMOGLOBIN (BEAKER) (test 29.6 pg 25.6-32.2 igju=565) MEAN CORPUSCULAR HEMOGLOBIN CONC (BEAKER) (test 32.0 GM/DL 32.2-35.5 tjys=118) RED CELL DISTRIBUTION WIDTH (BEAKER) (test 15.7 % 11.7-14.4 bvww=998) PLATELET COUNT (BEAKER) (test idrt=364) 385 K/CU MM 150-450 MEAN PLATELET VOLUME (BEAKER) (test kfea=157) 11.3 fL 9.4-12.3 NUCLEATED RED BLOOD CELLS (BEAKER) (test 0 /100 WBC 0-0 wgln=942) NEUTROPHILS RELATIVE PERCENT (BEAKER) (test 63 % hzgd=761) LYMPHOCYTES RELATIVE PERCENT (BEAKER) (test 21 % dmbj=971) MONOCYTES RELATIVE PERCENT (BEAKER) (test 11 % qwae=371) EOSINOPHILS RELATIVE PERCENT (BEAKER) (test 4 % omhx=658) BASOPHILS RELATIVE PERCENT (BEAKER) (test 1 % uztv=271) NEUTROPHILS ABSOLUTE COUNT (BEAKER) (test 6.86 K/ L 1.56-6.13 xqkx=320) LYMPHOCYTES ABSOLUTE COUNT (BEAKER) (test 2.29 K/ L 1.18-3.74 lwnx=567) MONOCYTES ABSOLUTE COUNT (BEAKER) (test 1.15 K/ L 0.24-0.36 bnwk=367) EOSINOPHILS ABSOLUTE COUNT (BEAKER) (test 0.43 K/ L 0.04-0.36 yocn=931) BASOPHILS ABSOLUTE COUNT (BEAKER) (test 0.09 K/ L 0.01-0.08 xvkt=271) IMMATURE GRANULOCYTES-RELATIVE PERCENT (BEAKER) 1 % 0-1 (test kejq=2636) POCT-GLUCOSE [id number] 21:19:00 Test Item Value Reference Range Comments POC-GLUCOSE METER (BEAKER) 326 mg/dL 70-110 TESTED AT [place] [address] [address] (test pcey=7549) [place] [address] POCT-GLUCOSE [id number] 17:23:00 Test Item Value Reference Range Comments POC-GLUCOSE METER (BEAKER) 357 mg/dL 70-110 Notified SAMAN HERNANDEZ/TESTED AT [facility] (test gkez=1416) [place] [facility] [address] BASIC METABOLIC [id number] 04:34:00 Test Item Value Reference Range Comments SODIUM (BEAKER) (test 140 meq/L 136-145 uoqq=064) POTASSIUM (BEAKER) (test 4.3 meq/L 3.5-5.1 Specimen slightly lkws=090) hemolyzed CHLORIDE (BEAKER) (test 101 meq/L 98-107 duhx=003) CO2 (BEAKER) (test 28 meq/L 22-29 avpr=502) BLOOD UREA NITROGEN 22 mg/dL 7-21 (BEAKER) (test wiqc=580) CREATININE (BEAKER) (test 2.88 mg/dL 0.57-1.25 Specimen slightly llbe=190) hemolyzed GLUCOSE RANDOM (BEAKER) 220 mg/dL 70-105 (test gyod=507) CALCIUM (BEAKER) (test 9.2 mg/dL 8.4-10.2 nrxy=052) EGFR (BEAKER) (test 16 mL/min/1.73 sq m ESTIMATED GFR IS NOT hcwc=0892) ACCURATE CREATININE CLEARANCE IN PREDICTING GLOMERULAR FILTRATION RATE. ESTIMATED GFR IS NOT APPLICABLE FOR DIALYSIS PATIENTS. [id number] 04:33:00 Test Item Value Reference Range Comments MAGNESIUM (BEAKER) (test 2.0 mg/dL 1.6-2.6 Specimen slightly hemolyzed tqjo=747) CBC W/PLT COUNT & AUTO [id number] 04:23:00 Test Item Value Reference Range Comments WHITE BLOOD CELL COUNT (BEAKER) (test avmj=643) 9.5 K/ L 3.5-10.5 RED BLOOD CELL COUNT (BEAKER) (test ssmc=546) 3.10 M/ L 3.93-5.22 HEMOGLOBIN (BEAKER) (test kvxr=344) 9.1 GM/DL 11.2-15.7 HEMATOCRIT (BEAKER) (test qclp=062) 28.7 % 34.1-44.9 MEAN CORPUSCULAR VOLUME (BEAKER) (test wshq=598) 92.6 fL 79.4-94.8 MEAN CORPUSCULAR HEMOGLOBIN (BEAKER) (test 29.4 pg 25.6-32.2 zeva=696) MEAN CORPUSCULAR HEMOGLOBIN CONC (BEAKER) (test 31.7 GM/DL 32.2-35.5 hikd=600) RED CELL DISTRIBUTION WIDTH (BEAKER) (test 15.8 % 11.7-14.4 jpjk=506) PLATELET COUNT (BEAKER) (test awgq=863) 387 K/CU MM 150-450 MEAN PLATELET VOLUME (BEAKER) (test gddb=902) 11.5 fL 9.4-12.3 NUCLEATED RED BLOOD CELLS (BEAKER) (test 0 /100 WBC 0-0 tygp=533) NEUTROPHILS RELATIVE PERCENT (BEAKER) (test 66 % xpwo=810) LYMPHOCYTES RELATIVE PERCENT (BEAKER) (test 19 % slhz=021) MONOCYTES RELATIVE PERCENT (BEAKER) (test 11 % vulx=145) EOSINOPHILS RELATIVE PERCENT (BEAKER) (test 2 % yqei=544) BASOPHILS RELATIVE PERCENT (BEAKER) (test 1 % hkwf=305) NEUTROPHILS ABSOLUTE COUNT (BEAKER) (test 6.28 K/ L 1.56-6.13 nfjg=740) LYMPHOCYTES ABSOLUTE COUNT (BEAKER) (test 1.79 K/ L 1.18-3.74 gife=394) MONOCYTES ABSOLUTE COUNT (BEAKER) (test 1.02 K/ L 0.24-0.36 mfxf=740) EOSINOPHILS ABSOLUTE COUNT (BEAKER) (test 0.21 K/ L 0.04-0.36 ryxe=870) BASOPHILS ABSOLUTE COUNT (BEAKER) (test 0.07 K/ L 0.01-0.08 sulj=323) IMMATURE GRANULOCYTES-RELATIVE PERCENT (BEAKER) 1 % 0-1 (test gztk=6365) POCT-GLUCOSE [id number] 20:49:00 Test Item Value Reference Range Comments POC-GLUCOSE METER (BEAKER) 283 mg/dL 70-110 TESTED AT [address] (test hacj=2578) [place] [id number] POCT-GLUCOSE [id number] 17:16:00 Test Item Value Reference Range Comments POC-GLUCOSE METER (BEAKER) 193 mg/dL 70-110 TESTED AT [address] (test waxv=0644) [place] [id number] POCT-GLUCOSE [id number] 11:47:00 Test Item Value Reference Range Comments POC-GLUCOSE METER (BEAKER) 316 mg/dL 70-110 Verify with Lab draw/TESTED AT (test hpjo=9266) [address] [address] BASIC METABOLIC [id number] 07:53:00 Test Item Value Reference Range Comments SODIUM (BEAKER) (test 129 meq/L 136-145 eecn=195) POTASSIUM (BEAKER) (test 3.9 meq/L 3.5-5.1 cfec=896) CHLORIDE (BEAKER) (test 94 meq/L 98-107 spxg=502) CO2 (BEAKER) (test 20 meq/L 22-29 hgaq=264) BLOOD UREA NITROGEN 58 mg/dL 7-21 (BEAKER) (test kvhf=722) CREATININE (BEAKER) (test 5.50 mg/dL 0.57-1.25 hngb=428) GLUCOSE RANDOM (BEAKER) 209 mg/dL 70-105 (test konp=720) CALCIUM (BEAKER) (test 9.1 mg/dL 8.4-10.2 nvll=999) EGFR (BEAKER) (test 8 mL/min/1.73 sq m ESTIMATED GFR IS NOT lrob=5288) ACCURATE CREATININE CLEARANCE IN PREDICTING GLOMERULAR FILTRATION RATE. ESTIMATED GFR IS NOT APPLICABLE FOR DIALYSIS PATIENTS. [id number] 07:52:00 Test Item Value Reference Range Comments PHOSPHORUS (BEAKER) (test oqkj=392) 5.8 mg/dL 2.3-4.7 [id number] 07:52:00 Test Item Value Reference Range Comments MAGNESIUM (BEAKER) (test jlrh=593) 1.8 mg/dL 1.6-2.6 POCT-GLUCOSE [id number] 07:41:00 Test Item Value Reference Range Comments POC-GLUCOSE METER (BEAKER) 226 mg/dL 70-110 TESTED AT [facility] [address] [facility] (test sols=5677) [facility] [address] B-TYPE NATRIURETIC FACTOR (BNP)2018-05-29 07:06:00 Test Item Value Reference Range Comments B-TYPE NATRIURETIC PEPTIDE (BEAKER) (test 306 pg/mL 0-100 ufln=411) CBC W/PLT COUNT & AUTO [id number] 06:50:00 Test Item Value Reference Range Comments WHITE BLOOD CELL COUNT (BEAKER) (test fyqo=928) 13.0 K/ L 3.5-10.5 RED BLOOD CELL COUNT (BEAKER) (test nmhc=125) 3.00 M/ L 3.93-5.22 HEMOGLOBIN (BEAKER) (test qcdm=611) 8.9 GM/DL 11.2-15.7 HEMATOCRIT (BEAKER) (test fqkl=946) 27.7 % 34.1-44.9 MEAN CORPUSCULAR VOLUME (BEAKER) (test vabj=246) 92.3 fL 79.4-94.8 MEAN CORPUSCULAR HEMOGLOBIN (BEAKER) (test 29.7 pg 25.6-32.2 nkdb=907) MEAN CORPUSCULAR HEMOGLOBIN CONC (BEAKER) (test 32.1 GM/DL 32.2-35.5 fqrr=346) RED CELL DISTRIBUTION WIDTH (BEAKER) (test 15.8 % 11.7-14.4 qafp=823) PLATELET COUNT (BEAKER) (test kxpe=999) 370 K/CU MM 150-450 MEAN PLATELET VOLUME (BEAKER) (test eedg=065) 11.7 fL 9.4-12.3 NUCLEATED RED BLOOD CELLS (BEAKER) (test 0 /100 WBC 0-0 pqof=718) NEUTROPHILS RELATIVE PERCENT (BEAKER) (test 69 % hpux=673) LYMPHOCYTES RELATIVE PERCENT (BEAKER) (test 17 % ebmx=103) MONOCYTES RELATIVE PERCENT (BEAKER) (test 10 % rfql=078) EOSINOPHILS RELATIVE PERCENT (BEAKER) (test 2 % grxj=395) BASOPHILS RELATIVE PERCENT (BEAKER) (test 1 % pzfp=816) NEUTROPHILS ABSOLUTE COUNT (BEAKER) (test 8.88 K/ L 1.56-6.13 lydn=485) LYMPHOCYTES ABSOLUTE COUNT (BEAKER) (test 2.26 K/ L 1.18-3.74 ydsz=271) MONOCYTES ABSOLUTE COUNT (BEAKER) (test 1.29 K/ L 0.24-0.36 kkqy=725) EOSINOPHILS ABSOLUTE COUNT (BEAKER) (test 0.31 K/ L 0.04-0.36 opui=925) BASOPHILS ABSOLUTE COUNT (BEAKER) (test 0.06 K/ L 0.01-0.08 fjki=626) IMMATURE GRANULOCYTES-RELATIVE PERCENT (BEAKER) 1 % 0-1 (test rrih=4416) POCT-GLUCOSE [id number] 21:57:00 Test Item Value Reference Range Comments POC-GLUCOSE METER (BEAKER) 328 mg/dL 70-110 Will Repeat Test/TESTED AT (test rxcz=9751) [place] [address] POCT-GLUCOSE [id number] 12:39:00 Test Item Value Reference Range Comments POC-GLUCOSE METER (BEAKER) 309 mg/dL 70-110 TESTED AT [address] (test lztb=6536) [place] [address] POCT-GLUCOSE [id number] 08:32:00 Test Item Value Reference Range Comments POC-GLUCOSE METER (BEAKER) 204 mg/dL 70-110 TESTED AT [address] (test vrfy=3630) [place] [address] BASIC METABOLIC [id number] 05:23:00 Test Item Value Reference Range Comments SODIUM (BEAKER) (test 134 meq/L 136-145 sjxi=030) POTASSIUM (BEAKER) (test 4.3 meq/L 3.5-5.1 cyoh=477) CHLORIDE (BEAKER) (test 99 meq/L 98-107 qcrg=814) CO2 (BEAKER) (test 24 meq/L 22-29 nzro=678) BLOOD UREA NITROGEN 37 mg/dL 7-21 (BEAKER) (test cqex=770) CREATININE (BEAKER) (test 4.04 mg/dL 0.57-1.25 ujgb=433) GLUCOSE RANDOM (BEAKER) 124 mg/dL 70-105 (test bmon=595) CALCIUM (BEAKER) (test 9.3 mg/dL 8.4-10.2 qyrn=951) EGFR (BEAKER) (test 11 mL/min/1.73 sq m ESTIMATED GFR IS NOT semc=2597) ACCURATE CREATININE CLEARANCE IN PREDICTING GLOMERULAR FILTRATION RATE. ESTIMATED GFR IS NOT APPLICABLE FOR DIALYSIS PATIENTS. [id number] 05:20:00 Test Item Value Reference Range Comments PHOSPHORUS (BEAKER) (test uraz=676) 4.4 mg/dL 2.3-4.7 [id number] 05:20:00 Test Item Value Reference Range Comments MAGNESIUM (BEAKER) (test jewo=354) 1.9 mg/dL 1.6-2.6 CBC W/PLT COUNT & AUTO [id number] 04:48:00 Test Item Value Reference Range Comments WHITE BLOOD CELL COUNT (BEAKER) (test ainv=513) 11.8 K/ L 3.5-10.5 RED BLOOD CELL COUNT (BEAKER) (test nvwx=537) 3.22 M/ L 3.93-5.22 HEMOGLOBIN (BEAKER) (test tfxh=681) 9.4 GM/DL 11.2-15.7 HEMATOCRIT (BEAKER) (test tcap=940) 30.2 % 34.1-44.9 MEAN CORPUSCULAR VOLUME (BEAKER) (test ewiz=030) 93.8 fL 79.4-94.8 MEAN CORPUSCULAR HEMOGLOBIN (BEAKER) (test 29.2 pg 25.6-32.2 usbt=296) MEAN CORPUSCULAR HEMOGLOBIN CONC (BEAKER) (test 31.1 GM/DL 32.2-35.5 vqwr=710) RED CELL DISTRIBUTION WIDTH (BEAKER) (test 15.7 % 11.7-14.4 vqtv=493) PLATELET COUNT (BEAKER) (test fdgl=839) 358 K/CU MM 150-450 MEAN PLATELET VOLUME (BEAKER) (test osgu=139) 11.7 fL 9.4-12.3 NUCLEATED RED BLOOD CELLS (BEAKER) (test 0 /100 WBC 0-0 qacv=755) NEUTROPHILS RELATIVE PERCENT (BEAKER) (test 65 % nrus=657) LYMPHOCYTES RELATIVE PERCENT (BEAKER) (test 19 % qupu=885) MONOCYTES RELATIVE PERCENT (BEAKER) (test 10 % lnkl=888) EOSINOPHILS RELATIVE PERCENT (BEAKER) (test 3 % ddpg=778) BASOPHILS RELATIVE PERCENT (BEAKER) (test 1 % spif=893) NEUTROPHILS ABSOLUTE COUNT (BEAKER) (test 7.73 K/ L 1.56-6.13 gxwr=930) LYMPHOCYTES ABSOLUTE COUNT (BEAKER) (test 2.29 K/ L 1.18-3.74 wzme=050) MONOCYTES ABSOLUTE COUNT (BEAKER) (test 1.20 K/ L 0.24-0.36 perg=119) EOSINOPHILS ABSOLUTE COUNT (BEAKER) (test 0.38 K/ L 0.04-0.36 dpdx=247) BASOPHILS ABSOLUTE COUNT (BEAKER) (test 0.07 K/ L 0.01-0.08 nszj=876) IMMATURE GRANULOCYTES-RELATIVE PERCENT (BEAKER) 1 % 0-1 (test qfcp=4735) POCT-GLUCOSE [id number] 22:03:00 Test Item Value Reference Range Comments POC-GLUCOSE METER (BEAKER) 152 mg/dL 70-110 TESTED AT [address] (test heco=6904) [place] [address] POCT-GLUCOSE [id number] 18:20:00 Test Item Value Reference Range Comments POC-GLUCOSE METER (BEAKER) 255 mg/dL 70-110 TESTED AT [address] (test nmbv=5613) [place] [id number] POCT-GLUCOSE [id number] 12:27:00 Test Item Value Reference Range Comments POC-GLUCOSE METER (BEAKER) 315 mg/dL 70-110 Notified SAMAN HERNANDEZ/TESTED AT [facility] (test dkyk=4742) [address] [place] [address] POCT-GLUCOSE [id number] 08:05:00 Test Item Value Reference Range Comments POC-GLUCOSE METER (BEAKER) 198 mg/dL 70-110 TESTED AT [address] (test rxhp=1887) [place] [id number] CALCIUM, [id number] 05:39:00 Test Item Value Reference Range Comments CALCIUM IONIZED (BEAKER) (test lrme=945) 1.12 mmol/L 1.12-1.27 PH, BLOOD (BEAKER) (test uhom=3143) 7.41 COMPREHENSIVE METABOLIC [id number] 04:53:00 Test Item Value Reference Range Comments TOTAL PROTEIN (BEAKER) 7.2 gm/dL 6.0-8.3 (test izla=320) ALBUMIN (BEAKER) (test 3.2 g/dL 3.5-5.0 vsmc=3513) ALKALINE PHOSPHATASE 212 U/L 40-150 (BEAKER) (test axsx=702) BILIRUBIN TOTAL (BEAKER) 0.3 mg/dL 0.2-1.2 (test ughx=698) SODIUM (BEAKER) (test 135 meq/L 136-145 uoml=923) POTASSIUM (BEAKER) (test 3.8 meq/L 3.5-5.1 gdap=181) CHLORIDE (BEAKER) (test 98 meq/L 98-107 xyrw=675) CO2 (BEAKER) (test 27 meq/L 22-29 ydno=940) BLOOD UREA NITROGEN 18 mg/dL 7-21 (BEAKER) (test clbs=607) CREATININE (BEAKER) (test 2.42 mg/dL 0.57-1.25 zwyn=955) GLUCOSE RANDOM (BEAKER) 211 mg/dL 70-105 (test dbwr=880) CALCIUM (BEAKER) (test 9.1 mg/dL 8.4-10.2 ltlj=038) AST (SGOT) (BEAKER) (test 35 U/L 5-34 ufva=540) ALT (SGPT) (BEAKER) (test 28 U/L 6-55 qxpz=069) EGFR (BEAKER) (test 20 mL/min/1.73 sq m ESTIMATED GFR IS NOT alam=6192) ACCURATE CREATININE CLEARANCE IN PREDICTING GLOMERULAR FILTRATION RATE. ESTIMATED GFR IS NOT APPLICABLE FOR DIALYSIS PATIENTS. [id number] 04:47:00 Test Item Value Reference Range Comments PHOSPHORUS (BEAKER) (test qsrk=905) 3.5 mg/dL 2.3-4.7 [id number] 04:47:00 Test Item Value Reference Range Comments MAGNESIUM (BEAKER) (test lwho=644) 1.8 mg/dL 1.6-2.6 CBC W/PLT COUNT & AUTO [id number] 04:24:00 Test Item Value Reference Range Comments WHITE BLOOD CELL COUNT (BEAKER) (test ronx=479) 9.7 K/ L 3.5-10.5 RED BLOOD CELL COUNT (BEAKER) (test tecs=203) 3.14 M/ L 3.93-5.22 HEMOGLOBIN (BEAKER) (test zxrv=344) 9.1 GM/DL 11.2-15.7 HEMATOCRIT (BEAKER) (test zbsw=471) 29.2 % 34.1-44.9 MEAN CORPUSCULAR VOLUME (BEAKER) (test uthh=418) 93.0 fL 79.4-94.8 MEAN CORPUSCULAR HEMOGLOBIN (BEAKER) (test 29.0 pg 25.6-32.2 sxta=357) MEAN CORPUSCULAR HEMOGLOBIN CONC (BEAKER) (test 31.2 GM/DL 32.2-35.5 pyae=282) RED CELL DISTRIBUTION WIDTH (BEAKER) (test 15.9 % 11.7-14.4 qqfl=037) PLATELET COUNT (BEAKER) (test urto=633) 331 K/CU MM 150-450 MEAN PLATELET VOLUME (BEAKER) (test kode=070) 11.4 fL 9.4-12.3 NUCLEATED RED BLOOD CELLS (BEAKER) (test 0 /100 WBC 0-0 iaih=048) NEUTROPHILS RELATIVE PERCENT (BEAKER) (test 62 % kcgu=526) LYMPHOCYTES RELATIVE PERCENT (BEAKER) (test 20 % mhgn=926) MONOCYTES RELATIVE PERCENT (BEAKER) (test 14 % ztmw=056) EOSINOPHILS RELATIVE PERCENT (BEAKER) (test 3 % xmnl=639) BASOPHILS RELATIVE PERCENT (BEAKER) (test 0 % ryha=365) NEUTROPHILS ABSOLUTE COUNT (BEAKER) (test 6.00 K/ L 1.56-6.13 lwjn=471) LYMPHOCYTES ABSOLUTE COUNT (BEAKER) (test 1.89 K/ L 1.18-3.74 kjgx=314) MONOCYTES ABSOLUTE COUNT (BEAKER) (test 1.31 K/ L 0.24-0.36 auhb=204) EOSINOPHILS ABSOLUTE COUNT (BEAKER) (test 0.29 K/ L 0.04-0.36 lyrs=400) BASOPHILS ABSOLUTE COUNT (BEAKER) (test 0.04 K/ L 0.01-0.08 qmdv=876) IMMATURE GRANULOCYTES-RELATIVE PERCENT (BEAKER) 1 % 0-1 (test hcvs=7210) POCT-GLUCOSE [id number] 22:46:00 Test Item Value Reference Range Comments POC-GLUCOSE METER (BEAKER) 266 mg/dL 70-110 TESTED AT [address] (test hzkf=8863) [facility] [address] POCT-GLUCOSE [id number] 17:28:00 Test Item Value Reference Range Comments POC-GLUCOSE METER (BEAKER) 194 mg/dL 70-110 TESTED AT [address] (test uffg=5210) [facility] [address] POCT-GLUCOSE [id number] 12:03:00 Test Item Value Reference Range Comments POC-GLUCOSE METER (BEAKER) 305 mg/dL 70-110 TESTED AT [address] (test rlac=8731) [facility] [address] POCT-GLUCOSE [id number] 08:46:00 Test Item Value Reference Range Comments POC-GLUCOSE METER (BEAKER) 210 mg/dL 70-110 TESTED AT [address] (test zxdv=1975) [facility] [address] CBC W/PLT COUNT & AUTO [id number] 06:41:00 Test Item Value Reference Range Comments WHITE BLOOD CELL COUNT (BEAKER) (test uoxp=432) 9.6 K/ L 3.5-10.5 RED BLOOD CELL COUNT (BEAKER) (test ngmq=003) 2.98 M/ L 3.93-5.22 HEMOGLOBIN (BEAKER) (test rqym=957) 8.7 GM/DL 11.2-15.7 HEMATOCRIT (BEAKER) (test jrsq=818) 27.8 % 34.1-44.9 MEAN CORPUSCULAR VOLUME (BEAKER) (test ogya=917) 93.3 fL 79.4-94.8 MEAN CORPUSCULAR HEMOGLOBIN (BEAKER) (test 29.2 pg 25.6-32.2 zeuo=544) MEAN CORPUSCULAR HEMOGLOBIN CONC (BEAKER) (test 31.3 GM/DL 32.2-35.5 wyha=742) RED CELL DISTRIBUTION WIDTH (BEAKER) (test 15.7 % 11.7-14.4 xsit=888) PLATELET COUNT (BEAKER) (test dnzw=099) 284 K/CU MM 150-450 MEAN PLATELET VOLUME (BEAKER) (test lwzo=250) 11.8 fL 9.4-12.3 NUCLEATED RED BLOOD CELLS (BEAKER) (test 0 /100 WBC 0-0 vnur=312) NEUTROPHILS RELATIVE PERCENT (BEAKER) (test 62 % jflz=147) LYMPHOCYTES RELATIVE PERCENT (BEAKER) (test 18 % jobr=704) MONOCYTES RELATIVE PERCENT (BEAKER) (test 16 % rnkg=216) EOSINOPHILS RELATIVE PERCENT (BEAKER) (test 2 % fxep=323) BASOPHILS RELATIVE PERCENT (BEAKER) (test 1 % wmfv=461) NEUTROPHILS ABSOLUTE COUNT (BEAKER) (test 5.87 K/ L 1.56-6.13 fyqs=584) LYMPHOCYTES ABSOLUTE COUNT (BEAKER) (test 1.73 K/ L 1.18-3.74 rbvg=189) MONOCYTES ABSOLUTE COUNT (BEAKER) (test 1.50 K/ L 0.24-0.36 icll=083) EOSINOPHILS ABSOLUTE COUNT (BEAKER) (test 0.23 K/ L 0.04-0.36 mumh=773) BASOPHILS ABSOLUTE COUNT (BEAKER) (test 0.05 K/ L 0.01-0.08 lzng=088) IMMATURE GRANULOCYTES-RELATIVE PERCENT (BEAKER) 2 % 0-1 (test lbmt=3564) BASIC METABOLIC [id number] 05:42:00 Test Item Value Reference Range Comments SODIUM (BEAKER) (test 133 meq/L 136-145 egaw=841) POTASSIUM (BEAKER) (test 4.1 meq/L 3.5-5.1 hoav=332) CHLORIDE (BEAKER) (test 98 meq/L 98-107 wsea=947) CO2 (BEAKER) (test 23 meq/L 22-29 gfue=890) BLOOD UREA NITROGEN 37 mg/dL 7-21 (BEAKER) (test qywp=814) CREATININE (BEAKER) (test 3.70 mg/dL 0.57-1.25 uyxg=920) GLUCOSE RANDOM (BEAKER) 202 mg/dL 70-105 (test pofz=492) CALCIUM (BEAKER) (test 8.9 mg/dL 8.4-10.2 kkup=385) EGFR (BEAKER) (test 12 mL/min/1.73 sq m ESTIMATED GFR IS NOT wpel=4781) ACCURATE CREATININE CLEARANCE IN PREDICTING GLOMERULAR FILTRATION RATE. ESTIMATED GFR IS NOT APPLICABLE FOR DIALYSIS PATIENTS. [id number] 05:35:00 Test Item Value Reference Range Comments MAGNESIUM (BEAKER) (test eqrk=497) 1.9 mg/dL 1.6-2.6 POCT-GLUCOSE [id number] 01:12:00 Test Item Value Reference Range Comments POC-GLUCOSE METER (BEAKER) 293 mg/dL 70-110 TESTED AT [facility] [address] [facility] (test qtwd=6819) [facility] [address] POCT-GLUCOSE [id number] 01:12:00 Test Item Value Reference Range Comments POC-GLUCOSE METER (BEAKER) 327 mg/dL 70-110 TESTED AT [address] (test kdef=5670) [facility] [address] ANG, TUNNELED CATHETER [id number] 14:50:00Reason for exam:->need tdc/hdFINAL REPORT Tunneled dialysis catheter insertion , 05/24/2018. History: Renal failure. Modality: Sonography and fluoroscopy. Sedation: Versed 1 mg and fentanyl 50 mcg was given intravenously for conscious sedation. Vital signs were monitored throughout the procedure by a nurse, and remained stable. Physician intra-service time was 20 minutes. Brush Polisher: Meenakshi. Physical Therapy Supervisor: None. Approach: Right internal jugular vein Estimated [...] needle into the right atrium. A 4 [place] micropuncture sheath was placed. A subcutaneous tunnel was created in the right anterior chest wall by blunt dissection. A 19 cm 15.5 [place] Duraflow 2 catheter was brought through the [...] MDReport Verified Date/Time: 05/25/2018 14:50:11 Reading Location: [address] Body Reading Room POCT-GLUCOSE [id number] 12:19: 00 Test Item Value Reference Range Comments POC-GLUCOSE METER (BEAKER) 197 mg/dL 70-110 TESTED AT [address] (test lgkn=0210) [facility] [address] BASIC METABOLIC [id number] 06:48:00 Test Item Value Reference Range Comments SODIUM (BEAKER) (test 138 meq/L 136-145 flxu=130) POTASSIUM (BEAKER) (test 3.9 meq/L 3.5-5.1 lupr=207) CHLORIDE (BEAKER) (test 99 meq/L 98-107 sdwx=588) CO2 (BEAKER) (test 30 meq/L 22-29 jqfg=837) BLOOD UREA NITROGEN 20 mg/dL 7-21 (BEAKER) (test hrnb=452) CREATININE (BEAKER) (test 2.47 mg/dL 0.57-1.25 zpum=469) GLUCOSE RANDOM (BEAKER) 85 mg/dL 70-105 (test drgr=903) CALCIUM (BEAKER) (test 9.3 mg/dL 8.4-10.2 lluy=140) EGFR (BEAKER) (test 20 mL/min/1.73 sq m ESTIMATED GFR IS NOT anjn=7159) ACCURATE CREATININE CLEARANCE IN PREDICTING GLOMERULAR FILTRATION RATE. ESTIMATED GFR IS NOT APPLICABLE FOR DIALYSIS PATIENTS. [id number] 06:43:00 Test Item Value Reference Range Comments PHOSPHORUS (BEAKER) (test cpib=284) 4.0 mg/dL 2.3-4.7 [id number] 06:43:00 Test Item Value Reference Range Comments MAGNESIUM (BEAKER) (test xwwr=162) 2.0 mg/dL 1.6-2.6 POCT-GLUCOSE [id number] 06:36:00 Test Item Value Reference Range Comments POC-GLUCOSE METER (BEAKER) 84 mg/dL 70-110 TESTED AT [facility] [address] [place] [address] (test kakj=8409) [facility] [address] CBC W/PLT COUNT & AUTO [id number] 06:12:00 Test Item Value Reference Range Comments WHITE BLOOD CELL COUNT (BEAKER) (test btsq=921) 9.9 K/ L 3.5-10.5 RED BLOOD CELL COUNT (BEAKER) (test zlww=389) 3.30 M/ L 3.93-5.22 HEMOGLOBIN (BEAKER) (test nfap=497) 9.6 GM/DL 11.2-15.7 HEMATOCRIT (BEAKER) (test rizx=379) 30.8 % 34.1-44.9 MEAN CORPUSCULAR VOLUME (BEAKER) (test tjha=637) 93.3 fL 79.4-94.8 MEAN CORPUSCULAR HEMOGLOBIN (BEAKER) (test 29.1 pg 25.6-32.2 dxtr=735) MEAN CORPUSCULAR HEMOGLOBIN CONC (BEAKER) (test 31.2 GM/DL 32.2-35.5 gvdn=532) RED CELL DISTRIBUTION WIDTH (BEAKER) (test 15.6 % 11.7-14.4 xfhc=094) PLATELET COUNT (BEAKER) (test fqtv=653) 287 K/CU MM 150-450 MEAN PLATELET VOLUME (BEAKER) (test shgj=369) 11.7 fL 9.4-12.3 NUCLEATED RED BLOOD CELLS (BEAKER) (test 0 /100 WBC 0-0 xqig=192) NEUTROPHILS RELATIVE PERCENT (BEAKER) (test 68 % rnjp=431) LYMPHOCYTES RELATIVE PERCENT (BEAKER) (test 12 % hkqd=847) MONOCYTES RELATIVE PERCENT (BEAKER) (test 14 % xknp=840) EOSINOPHILS RELATIVE PERCENT (BEAKER) (test 3 % vykx=664) BASOPHILS RELATIVE PERCENT (BEAKER) (test 1 % tbnu=819) NEUTROPHILS ABSOLUTE COUNT (BEAKER) (test 6.79 K/ L 1.56-6.13 czzf=101) LYMPHOCYTES ABSOLUTE COUNT (BEAKER) (test 1.23 K/ L 1.18-3.74 scqt=181) MONOCYTES ABSOLUTE COUNT (BEAKER) (test 1.43 K/ L 0.24-0.36 kknq=853) EOSINOPHILS ABSOLUTE COUNT (BEAKER) (test 0.31 K/ L 0.04-0.36 ipvn=469) BASOPHILS ABSOLUTE COUNT (BEAKER) (test 0.05 K/ L 0.01-0.08 nrpq=166) IMMATURE GRANULOCYTES-RELATIVE PERCENT (BEAKER) 1 % 0-1 (test weqv=3094) POCT-GLUCOSE [id number] 23:53:00 Test Item Value Reference Range Comments POC-GLUCOSE METER (BEAKER) 88 mg/dL 70-110 TESTED AT [address] (test eyrx=0789) [facility] [address] POCT-GLUCOSE [id number] 17:24:00 Test Item Value Reference Range Comments POC-GLUCOSE METER (BEAKER) 125 mg/dL 70-110 TESTED AT [address] (test lbsq=7597) [facility] [address] POCT-GLUCOSE [id number] 12:00:00 Test Item Value Reference Range Comments POC-GLUCOSE METER (BEAKER) 110 mg/dL 70-110 TESTED AT [address] (test gwdm=5426) [facility] [address] PROTHROMBIN [id number] 09:56:00 Test Item Value Reference Range Comments PROTIME (BEAKER) (test wsbf=379) 14.5 seconds 11.7-14.7 INR (BEAKER) (test tqzv=716) 1.1 <=5.9 RECOMMENDED COUMADIN/WARFARIN INR THERAPY RANGESSTANDARD DOSE: 2.0 - 3.0 Includes: PROPHYLAXIS forvenous thrombosis, systemic embolization; TREATMENT for venous thrombosis and/or pulmonary embolus.HIGH RISK: Target INR is 2.5-3.5 for patients with mechanical heart valves.POCT-GLUCOSE [id number] 07:54:00 Test Item Value Reference Range Comments POC-GLUCOSE METER (BEAKER) 110 mg/dL 70-110 TESTED AT [facility] [address] [facility] (test zlbv=0661) [facility] [address] BASIC METABOLIC [id number] 05:57:00 Test Item Value Reference Range Comments SODIUM (BEAKER) (test 139 meq/L 136-145 pdmt=727) POTASSIUM (BEAKER) (test 3.5 meq/L 3.5-5.1 nord=883) CHLORIDE (BEAKER) (test 103 meq/L 98-107 fpla=040) CO2 (BEAKER) (test 27 meq/L 22-29 ytdr=188) BLOOD UREA NITROGEN 26 mg/dL 7-21 (BEAKER) (test mjrk=930) CREATININE (BEAKER) (test 2.77 mg/dL 0.57-1.25 ojlq=186) GLUCOSE RANDOM (BEAKER) 65 mg/dL 70-105 (test wfzm=633) CALCIUM (BEAKER) (test 9.1 mg/dL 8.4-10.2 yrvp=767) EGFR (BEAKER) (test 17 mL/min/1.73 sq m ESTIMATED GFR IS NOT flvc=3570) ACCURATE CREATININE CLEARANCE IN PREDICTING GLOMERULAR FILTRATION RATE. ESTIMATED GFR IS NOT APPLICABLE FOR DIALYSIS PATIENTS. [id number] 05:56:00 Test Item Value Reference Range Comments MAGNESIUM (BEAKER) (test awcf=346) 2.0 mg/dL 1.6-2.6 CBC W/PLT COUNT & AUTO [id number] 05:34:00 Test Item Value Reference Range Comments WHITE BLOOD CELL COUNT (BEAKER) (test zeyr=623) 9.8 K/ L 3.5-10.5 RED BLOOD CELL COUNT (BEAKER) (test nqix=240) 2.92 M/ L 3.93-5.22 HEMOGLOBIN (BEAKER) (test anmg=260) 8.5 GM/DL 11.2-15.7 HEMATOCRIT (BEAKER) (test adcn=990) 27.1 % 34.1-44.9 MEAN CORPUSCULAR VOLUME (BEAKER) (test eobf=406) 92.8 fL 79.4-94.8 MEAN CORPUSCULAR HEMOGLOBIN (BEAKER) (test 29.1 pg 25.6-32.2 gbgo=011) MEAN CORPUSCULAR HEMOGLOBIN CONC (BEAKER) (test 31.4 GM/DL 32.2-35.5 iklp=208) RED CELL DISTRIBUTION WIDTH (BEAKER) (test 15.0 % 11.7-14.4 lwcx=037) PLATELET COUNT (BEAKER) (test tmqi=722) 245 K/CU MM 150-450 MEAN PLATELET VOLUME (BEAKER) (test mifl=353) 11.3 fL 9.4-12.3 NUCLEATED RED BLOOD CELLS (BEAKER) (test 0 /100 WBC 0-0 dyyt=138) NEUTROPHILS RELATIVE PERCENT (BEAKER) (test 59 % otbo=442) LYMPHOCYTES RELATIVE PERCENT (BEAKER) (test 18 % fhie=430) MONOCYTES RELATIVE PERCENT (BEAKER) (test 15 % jjdb=915) EOSINOPHILS RELATIVE PERCENT (BEAKER) (test 6 % xznd=524) BASOPHILS RELATIVE PERCENT (BEAKER) (test 1 % nrgc=090) NEUTROPHILS ABSOLUTE COUNT (BEAKER) (test 5.73 K/ L 1.56-6.13 xcmd=312) LYMPHOCYTES ABSOLUTE COUNT (BEAKER) (test 1.72 K/ L 1.18-3.74 cfos=630) MONOCYTES ABSOLUTE COUNT (BEAKER) (test 1.46 K/ L 0.24-0.36 uuom=131) EOSINOPHILS ABSOLUTE COUNT (BEAKER) (test 0.55 K/ L 0.04-0.36 cmgf=372) BASOPHILS ABSOLUTE COUNT (BEAKER) (test 0.07 K/ L 0.01-0.08 xbdm=558) IMMATURE GRANULOCYTES-RELATIVE PERCENT (BEAKER) 3 % 0-1 (test mbep=4810) POCT-GLUCOSE [id number] 00:45:00 Test Item Value Reference Range Comments POC-GLUCOSE METER (BEAKER) 95 mg/dL 70-110 TESTED AT [address] (test dfsc=7282) [facility] [address] POCT-GLUCOSE [id number] 17:11:00 Test Item Value Reference Range Comments POC-GLUCOSE METER (BEAKER) 247 mg/dL 70-110 TESTED AT [address] (test qydo=5095) [place] [id number] POCT-GLUCOSE [id number] 13:00:00 Test Item Value Reference Range Comments POC-GLUCOSE METER (BEAKER) 182 mg/dL 70-110 TESTED AT [address] (test vjdt=1997) [place] [id number] BASIC METABOLIC [id number] 06:26:00 Test Item Value Reference Range Comments SODIUM (BEAKER) (test 138 meq/L 136-145 thbn=714) POTASSIUM (BEAKER) (test 3.6 meq/L 3.5-5.1 eqoq=050) CHLORIDE (BEAKER) (test 101 meq/L 98-107 mewj=483) CO2 (BEAKER) (test 29 meq/L 22-29 ujpt=991) BLOOD UREA NITROGEN 16 mg/dL 7-21 (BEAKER) (test kyny=887) CREATININE (BEAKER) (test 1.74 mg/dL 0.57-1.25 koit=099) GLUCOSE RANDOM (BEAKER) 146 mg/dL 70-105 (test bokn=762) CALCIUM (BEAKER) (test 9.0 mg/dL 8.4-10.2 dsev=235) EGFR (BEAKER) (test 29 mL/min/1.73 sq m ESTIMATED GFR IS NOT qqmb=6832) ACCURATE CREATININE CLEARANCE IN PREDICTING GLOMERULAR FILTRATION RATE. ESTIMATED GFR IS NOT APPLICABLE FOR DIALYSIS PATIENTS. [id number] 06:21:00 Test Item Value Reference Range Comments MAGNESIUM (BEAKER) (test ivns=454) 2.0 mg/dL 1.6-2.6 CBC W/PLT COUNT & AUTO [id number] 05:54:00 Test Item Value Reference Range Comments WHITE BLOOD CELL COUNT (BEAKER) (test vdyj=706) 9.2 K/ L 3.5-10.5 RED BLOOD CELL COUNT (BEAKER) (test rphy=985) 2.92 M/ L 3.93-5.22 HEMOGLOBIN (BEAKER) (test dbpo=455) 8.6 GM/DL 11.2-15.7 HEMATOCRIT (BEAKER) (test dhrd=889) 27.0 % 34.1-44.9 MEAN CORPUSCULAR VOLUME (BEAKER) (test raln=518) 92.5 fL 79.4-94.8 MEAN CORPUSCULAR HEMOGLOBIN (BEAKER) (test 29.5 pg 25.6-32.2 bmnp=910) MEAN CORPUSCULAR HEMOGLOBIN CONC (BEAKER) (test 31.9 GM/DL 32.2-35.5 iscu=259) RED CELL DISTRIBUTION WIDTH (BEAKER) (test 14.9 % 11.7-14.4 wtgv=121) PLATELET COUNT (BEAKER) (test nvhg=024) 197 K/CU MM 150-450 MEAN PLATELET VOLUME (BEAKER) (test lxuz=337) 11.8 fL 9.4-12.3 NUCLEATED RED BLOOD CELLS (BEAKER) (test 0 /100 WBC 0-0 skep=809) NEUTROPHILS RELATIVE PERCENT (BEAKER) (test 60 % meow=780) LYMPHOCYTES RELATIVE PERCENT (BEAKER) (test 16 % jlwx=670) MONOCYTES RELATIVE PERCENT (BEAKER) (test 13 % wuqj=160) EOSINOPHILS RELATIVE PERCENT (BEAKER) (test 7 % sods=857) BASOPHILS RELATIVE PERCENT (BEAKER) (test 1 % gzve=514) NEUTROPHILS ABSOLUTE COUNT (BEAKER) (test 5.47 K/ L 1.56-6.13 zoam=550) LYMPHOCYTES ABSOLUTE COUNT (BEAKER) (test 1.45 K/ L 1.18-3.74 nxbr=724) MONOCYTES ABSOLUTE COUNT (BEAKER) (test 1.19 K/ L 0.24-0.36 rnum=781) EOSINOPHILS ABSOLUTE COUNT (BEAKER) (test 0.62 K/ L 0.04-0.36 mrsn=483) BASOPHILS ABSOLUTE COUNT (BEAKER) (test 0.10 K/ L 0.01-0.08 dbev=950) IMMATURE GRANULOCYTES-RELATIVE PERCENT (BEAKER) 4 % 0-1 (test mfsi=0250) POCT-GLUCOSE [id number] 05:47:00 Test Item Value Reference Range Comments POC-GLUCOSE METER (BEAKER) 154 mg/dL 70-110 TESTED AT [facility] [address] [facility] (test huod=2528) [facility] [address] POCT-GLUCOSE [id number] 00:16:00 Test Item Value Reference Range Comments POC-GLUCOSE METER (BEAKER) 218 mg/dL 70-110 TESTED AT [address] (test bkbg=6750) [facility] [address] RAD, CHEST, 1 VIEW, NON [id number] 19:44:00Reason for exam:->HD line placement Should this [...] Fischer Verified Date/Time: 05/22/2018 19:44:26 Reading Location: [address] ConsultReading Room POCT-GLUCOSE [id number] 17:46:00 Test Item Value Reference Range Comments POC-GLUCOSE METER (BEAKER) 284 mg/dL 70-110 TESTED AT [address] (test vywe=0171) [place] [address] SPUTUM CULTURE + GRAM [id number] 14:30:00 Test Item Value Reference Range Comments CULTURE (BEAKER) (test xiec=7594) See comment GRAM STAIN RESULT (BEAKER) (test 2+ WBCs eeoa=0520) GRAM STAIN RESULT (BEAKER) (test 0-5 epithelial cells xzsg=838357) GRAM STAIN RESULT (BEAKER) (test <1+ gram negative rods zksl=326375) <1+ yeastNo normal respiratory lor presentPOCT-GLUCOSE [id number] 12: 16:00 Test Item Value Reference Range Comments POC-GLUCOSE METER (BEAKER) 302 mg/dL 70-110 TESTED AT [address] (test qvgr=2165) [facility] [address] RAD, CHEST, 1 VIEW, NON [id number] 07:34:00Reason for exam:-> pneumoniaShould this be performed [...] Signed: JR Aranda Robert MDReport Verified Date/Time: 05/22/2018 07:34:31 Reading Location: [address] Neuro Reading Room BLOOD [id number] 07:01:00 Test Item Value Reference Range Comments CULTURE (BEAKER) (test dfsp=2263) No growth in 5 days BLOOD [id number] 07:01:00 Test Item Value Reference Range Comments CULTURE (BEAKER) (test zoyi=8835) No growth in 5 days BASIC METABOLIC [id number] 06:19:00 Test Item Value Reference Range Comments SODIUM (BEAKER) (test 140 meq/L 136-145 uugl=408) POTASSIUM (BEAKER) (test 3.7 meq/L 3.5-5.1 yxlf=431) CHLORIDE (BEAKER) (test 101 meq/L 98-107 gojt=165) CO2 (BEAKER) (test 29 meq/L 22-29 zxkv=050) BLOOD UREA NITROGEN 35 mg/dL 7-21 (BEAKER) (test xlmm=397) CREATININE (BEAKER) (test 2.45 mg/dL 0.57-1.25 jvch=703) GLUCOSE RANDOM (BEAKER) 221 mg/dL 70-105 (test zery=593) CALCIUM (BEAKER) (test 8.7 mg/dL 8.4-10.2 enzp=339) EGFR (BEAKER) (test 20 mL/min/1.73 sq m ESTIMATED GFR IS NOT tbrh=9012) ACCURATE CREATININE CLEARANCE IN PREDICTING GLOMERULAR FILTRATION RATE. ESTIMATED GFR IS NOT APPLICABLE FOR DIALYSIS PATIENTS. [id number] 06:17:00 Test Item Value Reference Range Comments PHOSPHORUS (BEAKER) (test idvz=247) 2.5 mg/dL 2.3-4.7 [id number] 06:17:00 Test Item Value Reference Range Comments MAGNESIUM (BEAKER) (test hbhj=137) 2.1 mg/dL 1.6-2.6 CBC W/PLT COUNT & AUTO [id number] 05:56:00 Test Item Value Reference Range Comments WHITE BLOOD CELL COUNT (BEAKER) (test phxe=474) 7.2 K/ L 3.5-10.5 RED BLOOD CELL COUNT (BEAKER) (test txhp=120) 2.66 M/ L 3.93-5.22 HEMOGLOBIN (BEAKER) (test zihk=580) 7.8 GM/DL 11.2-15.7 HEMATOCRIT (BEAKER) (test oeub=208) 24.5 % 34.1-44.9 MEAN CORPUSCULAR VOLUME (BEAKER) (test zwav=301) 92.1 fL 79.4-94.8 MEAN CORPUSCULAR HEMOGLOBIN (BEAKER) (test 29.3 pg 25.6-32.2 tvpp=397) MEAN CORPUSCULAR HEMOGLOBIN CONC (BEAKER) (test 31.8 GM/DL 32.2-35.5 ewst=679) RED CELL DISTRIBUTION WIDTH (BEAKER) (test 14.8 % 11.7-14.4 vigd=829) PLATELET COUNT (BEAKER) (test ibhu=682) 164 K/CU MM 150-450 MEAN PLATELET VOLUME (BEAKER) (test byeh=272) 12.0 fL 9.4-12.3 NUCLEATED RED BLOOD CELLS (BEAKER) (test 0 /100 WBC 0-0 qsmn=111) NEUTROPHILS RELATIVE PERCENT (BEAKER) (test 60 % gjtr=429) LYMPHOCYTES RELATIVE PERCENT (BEAKER) (test 15 % fktp=294) MONOCYTES RELATIVE PERCENT (BEAKER) (test 16 % oyjk=972) EOSINOPHILS RELATIVE PERCENT (BEAKER) (test 4 % qlpr=060) BASOPHILS RELATIVE PERCENT (BEAKER) (test 1 % npwb=354) NEUTROPHILS ABSOLUTE COUNT (BEAKER) (test 4.36 K/ L 1.56-6.13 hjef=642) LYMPHOCYTES ABSOLUTE COUNT (BEAKER) (test 1.10 K/ L 1.18-3.74 igcf=109) MONOCYTES ABSOLUTE COUNT (BEAKER) (test 1.16 K/ L 0.24-0.36 dvub=811) EOSINOPHILS ABSOLUTE COUNT (BEAKER) (test 0.28 K/ L 0.04-0.36 rbsd=877) BASOPHILS ABSOLUTE COUNT (BEAKER) (test 0.05 K/ L 0.01-0.08 ekir=388) IMMATURE GRANULOCYTES-RELATIVE PERCENT (BEAKER) 4 % 0-1 (test tpjf=7051) POCT-GLUCOSE [id number] 17:46:00 Test Item Value Reference Range Comments POC-GLUCOSE METER (BEAKER) 147 mg/dL 70-110 TESTED AT [facility] [address] [facility] (test tqhc=8496) [facility] [address] RESPIRATORY PANEL [id number] 14:16:00 Test Item Value Reference Range Comments HUMAN METAPNEUMOVIRUS (BEAKER) (test Not detected Not detected, Equivocal nlzu=3478) RHINOVIRUS (BEAKER) (test fvli=6133) Not detected Not detected, Equivocal INFLUENZA A (BEAKER) (test rmzg=5139) Not detected Not detected, Equivocal INFLUENZA A (NO SUBTYPE) (test Not detected, Equivocal ezoy=4669) INFLUENZA A SUBTYPE H1 (BEAKER) (test Not detected, Equivocal gpoh=6778) INFLUENZA A SUBTYPE H3 (BEAKER) (test Not detected, Equivocal nceh=7322) INFLUENZA A SUBTYPE H1-2009 (BEAKER) Not detected, Equivocal (test mxgz=1767) INFLUENZA B (BEAKER) (test jlbv=4203) Not detected Not detected, Equivocal RESPIRATORY SYNCYTIAL VIRUS (BEAKER) Not detected Not detected, Equivocal (test mmry=0781) PARAINFLUENZA VIRUS 1 (BEAKER) (test Not detected Not detected, Equivocal mwrb=0834) PARAINFLUENZA VIRUS 2 (BEAKER) (test Not detected Not detected, Equivocal jebw=9156) PARAINFLUENZA VIRUS 3 (BEAKER) (test Not detected Not detected, Equivocal bang=9102) PARAINFLUENZA VIRUS 4 (BEAKER) (test Not detected Not detected, Equivocal isad=4268) ADENOVIRUS (BEAKER) (test nnrr=8806) Not detected Not detected, Equivocal CORONAVIRUS 229E (BEAKER) (test Not detected Not detected, Equivocal nixy=8382) CORONAVIRUS HKU1 (BEAKER) (test Not detected Not detected, Equivocal kwwg=5780) CORONAVIRUS NL63 (BEAKER) (test Not detected Not detected, Equivocal sdrd=9353) CORONAVIRUS OC43 (BEAKER) (test Not detected Not detected, Equivocal fcin=3154) BORDETELLA PERTUSSIS (BEAKER) (test Not detected Not detected, Equivocal ovjg=1292) CHLAMYDOPHILA PNEUMONIAE (BEAKER) (test Not detected Not detected, Equivocal wdsv=9286) MYCOPLASMA PNEUMONIAE (BEAKER) (test Not detected Not detected, Equivocal ehpe=7058) Other viruses and bacteria not targeted by this PCR panel cannot be excluded; therefore clinical correlation and follow up of serology, culture results, and other molecular studies is required. The results are not intended to be used as the sole means for clinical diagnosis or patient management decisions. This sample was tested at the [facility]ostics Laboratory using the ImageSpikeArray Respiratory Panel. It is FDA cleared and has been verified and approved by the [facility] for clinical use on nasal swab specimens. It is not FDA-cleared for use on bronchial wash/lavage samples. However, for this sample type, validation was performed and test characteristics were determined and approved, by [facility] [employer] Diagnostics laboratory for clinical use under the Clinical Laboratory Improvement Amendments (CLIA) of 1988 requirements. Therefore, FDA clearance isnot required. This laboratory is CLIA-certified and [employer] ([employer])-accredited to perform high complexity testing.POCT-GLUCOSE [id number] 13:35:00 Test Item Value Reference Range Comments POC-GLUCOSE METER ([facility]) 228 mg/dL 70-110 TESTED AT [facility] [address] (test fsan=6269) [facility] [address] BLOOD GAS, [id number] 10:42:00 Test Item Value Reference Range Comments PH ARTERIAL (BEAKER) (test hzcj=893) 7.41 7.35-7.45 PCO2 ARTERIAL (BEAKER) (test tiwe=577) 42 mmHg 35-45 PO2 ARTERIAL (BEAKER) (test kgnz=320) 167 mmHg 80-90 O2 SATURATION ARTERIAL (BEAKER) (test xasu=452) 99.1 % 96.0-97.0 HCO3 ARTERIAL (BEAKER) (test sepu=578) 26 mmol/L 21-29 BASE EXCESS ARTERIAL (BEAKER) (test yiwn=491) 1.0 mmol/L -2.0-3.0 PATIENT TEMPERATURE (BEAKER) (test rlwd=4292) 37.5 C FIO2 (BEAKER) (test zekn=2863) 35.0 % URINE [id number] 09:06:00 Test Item Value Reference Range Comments CULTURE (BEAKER) (test >100,000 col/mL Madie glabrata ehny=8471) POCT-GLUCOSE [id number] 05:53:00 Test Item Value Reference Range Comments POC-GLUCOSE METER (BEAKER) 184 mg/dL 70-110 TESTED AT [facility] [address] [place] [address] (test nupd=8164) [facility] [address] RAD, CHEST, 1 VIEW, NON [id number] 05:50:00Reason for exam:-> pneumoniaShould this be performed at the bedside?->YesFINAL REPORT RAD, CHEST, 1 VIEW, NON DEPT INDICATION: pneumonia COMPARISON: Prior day's exam FINDINGS: Portable frontal view of the chest. IMPRESSION: Support Lines: Stable. Lungs and pleura: Unchanged airspace and pleural opacities. No pneumothorax.Heart and mediastinum: Stable contours. Additional findings: None. Signed: Marina Hale Verified Date/Time: 2018 05:50:08 Reading Location: [address] Transitional Reading Room BASIC METABOLIC [id number] 05:13:00 Test Item Value Reference Range Comments SODIUM (BEAKER) (test 132 meq/L 136-145 nuit=405) POTASSIUM (BEAKER) (test 4.3 meq/L 3.5-5.1 jsys=332) CHLORIDE (BEAKER) (test 97 meq/L 98-107 kmrh=949) CO2 (BEAKER) (test 25 meq/L 22-29 qorc=053) BLOOD UREA NITROGEN 69 mg/dL 7-21 (BEAKER) (test hhxg=590) CREATININE (BEAKER) (test 3.74 mg/dL 0.57-1.25 nssx=876) GLUCOSE RANDOM (BEAKER) 147 mg/dL 70-105 (test tybd=254) CALCIUM (BEAKER) (test 8.8 mg/dL 8.4-10.2 vqbj=463) EGFR (BEAKER) (test 12 mL/min/1.73 sq m ESTIMATED GFR IS NOT lnnr=4811) ACCURATE CREATININE CLEARANCE IN PREDICTING GLOMERULAR FILTRATION RATE. ESTIMATED GFR IS NOT APPLICABLE FOR DIALYSIS PATIENTS. [id number] 05:12:00 Test Item Value Reference Range Comments MAGNESIUM (BEAKER) (test zflk=348) 2.5 mg/dL 1.6-2.6 CBC W/PLT COUNT & AUTO [id number] 05:04:00 Test Item Value Reference Range Comments WHITE BLOOD CELL COUNT (BEAKER) (test yxtr=692) 6.6 K/ L 3.5-10.5 RED BLOOD CELL COUNT (BEAKER) (test vnca=396) 2.62 M/ L 3.93-5.22 HEMOGLOBIN (BEAKER) (test wwgt=575) 7.6 GM/DL 11.2-15.7 HEMATOCRIT (BEAKER) (test iyyo=910) 24.2 % 34.1-44.9 MEAN CORPUSCULAR VOLUME (BEAKER) (test pyve=108) 92.4 fL 79.4-94.8 MEAN CORPUSCULAR HEMOGLOBIN (BEAKER) (test 29.0 pg 25.6-32.2 blha=593) MEAN CORPUSCULAR HEMOGLOBIN CONC (BEAKER) (test 31.4 GM/DL 32.2-35.5 xmqi=200) RED CELL DISTRIBUTION WIDTH (BEAKER) (test 15.0 % 11.7-14.4 wdiw=064) PLATELET COUNT (BEAKER) (test ysjj=887) 151 K/CU MM 150-450 MEAN PLATELET VOLUME (BEAKER) (test hucx=745) 11.9 fL 9.4-12.3 NUCLEATED RED BLOOD CELLS (BEAKER) (test 0 /100 WBC 0-0 oipg=954) NEUTROPHILS RELATIVE PERCENT (BEAKER) (test 56 % yhsz=891) LYMPHOCYTES RELATIVE PERCENT (BEAKER) (test 22 % qwuj=855) MONOCYTES RELATIVE PERCENT (BEAKER) (test 16 % wanf=681) EOSINOPHILS RELATIVE PERCENT (BEAKER) (test 5 % yxrc=066) BASOPHILS RELATIVE PERCENT (BEAKER) (test 1 % elmm=788) NEUTROPHILS ABSOLUTE COUNT (BEAKER) (test 3.68 K/ L 1.56-6.13 esjt=207) LYMPHOCYTES ABSOLUTE COUNT (BEAKER) (test 1.42 K/ L 1.18-3.74 jcqt=706) MONOCYTES ABSOLUTE COUNT (BEAKER) (test 1.08 K/ L 0.24-0.36 byft=060) EOSINOPHILS ABSOLUTE COUNT (BEAKER) (test 0.35 K/ L 0.04-0.36 szmz=588) BASOPHILS ABSOLUTE COUNT (BEAKER) (test 0.03 K/ L 0.01-0.08 xmie=461) IMMATURE GRANULOCYTES-RELATIVE PERCENT (BEAKER) 1 % 0-1 (test dkxb=6662) POCT-GLUCOSE [id number] 01:14:00 Test Item Value Reference Range Comments POC-GLUCOSE METER (BEAKER) 215 mg/dL 70-110 TESTED AT [address] (test nqhv=2879) [place] [id number] POCT-GLUCOSE [id number] 17:46:00 Test Item Value Reference Range Comments POC-GLUCOSE METER (BEAKER) 170 mg/dL 70-110 TESTED AT [address] (test wpzq=1645) [place] [id number] POCT-GLUCOSE [id number] 12:14:00 Test Item Value Reference Range Comments POC-GLUCOSE METER (BEAKER) 300 mg/dL 70-110 TESTED AT [address] (test ffcd=1707) [place] [id number] POCT-GLUCOSE [id number] 06:46:00 Test Item Value Reference Range Comments POC-GLUCOSE METER (BEAKER) 178 mg/dL 70-110 TESTED AT [address] (test igke=1547) [place] [id number] RAD, CHEST, 1 VIEW, NON [id number] 06:23:00Reason for exam:-> pneumoniaShould this be performed [...] Hale Verified Date/Time: 2018 06:23:41 Reading Location: [address] Transitional Reading Room [id number] 05:14:00 Test Item Value Reference Range Comments PHOSPHORUS (BEAKER) (test expf=857) 4.5 mg/dL 2.3-4.7 [id number] 05:14:00 Test Item Value Reference Range Comments MAGNESIUM (BEAKER) (test eqhl=660) 2.3 mg/dL 1.6-2.6 LACTATE DEHYDROGENASE (LDH)2018-05-20 05:14:00 Test Item Value Reference Range Comments LACTATE DEHYDROGENASE (BEAKER) (test xwyt=915) 169 U/L 125-220 BASIC METABOLIC [id number] 05:14:00 Test Item Value Reference Range Comments SODIUM (BEAKER) (test 135 meq/L 136-145 yoqo=457) POTASSIUM (BEAKER) (test 4.1 meq/L 3.5-5.1 yrhr=055) CHLORIDE (BEAKER) (test 99 meq/L 98-107 jwrt=695) CO2 (BEAKER) (test 27 meq/L 22-29 gtoz=929) BLOOD UREA NITROGEN 44 mg/dL 7-21 (BEAKER) (test vfbe=962) CREATININE (BEAKER) (test 2.88 mg/dL 0.57-1.25 pmmb=352) GLUCOSE RANDOM (BEAKER) 144 mg/dL 70-105 (test ocoz=880) CALCIUM (BEAKER) (test 8.7 mg/dL 8.4-10.2 xxlm=085) EGFR (BEAKER) (test 16 mL/min/1.73 sq m ESTIMATED GFR IS NOT loxl=5343) ACCURATE CREATININE CLEARANCE IN PREDICTING GLOMERULAR FILTRATION RATE. ESTIMATED GFR IS NOT APPLICABLE FOR DIALYSIS PATIENTS. CBC W/PLT COUNT & AUTO [id number] 05:03:00 Test Item Value Reference Range Comments WHITE BLOOD CELL COUNT (BEAKER) (test mimm=175) 6.1 K/ L 3.5-10.5 RED BLOOD CELL COUNT (BEAKER) (test gdnw=533) 2.63 M/ L 3.93-5.22 HEMOGLOBIN (BEAKER) (test obxf=784) 7.8 GM/DL 11.2-15.7 HEMATOCRIT (BEAKER) (test rcai=966) 24.8 % 34.1-44.9 MEAN CORPUSCULAR VOLUME (BEAKER) (test upbd=377) 94.3 fL 79.4-94.8 MEAN CORPUSCULAR HEMOGLOBIN (BEAKER) (test 29.7 pg 25.6-32.2 epji=134) MEAN CORPUSCULAR HEMOGLOBIN CONC (BEAKER) (test 31.5 GM/DL 32.2-35.5 mazd=863) RED CELL DISTRIBUTION WIDTH (BEAKER) (test 15.2 % 11.7-14.4 lhlp=829) PLATELET COUNT (BEAKER) (test lswi=219) 136 K/CU MM 150-450 MEAN PLATELET VOLUME (BEAKER) (test mzgx=871) 11.8 fL 9.4-12.3 NUCLEATED RED BLOOD CELLS (BEAKER) (test 0 /100 WBC 0-0 lbuv=001) NEUTROPHILS RELATIVE PERCENT (BEAKER) (test 60 % ahjc=505) LYMPHOCYTES RELATIVE PERCENT (BEAKER) (test 21 % qwlo=409) MONOCYTES RELATIVE PERCENT (BEAKER) (test 11 % pwtn=314) EOSINOPHILS RELATIVE PERCENT (BEAKER) (test 7 % rwpr=286) BASOPHILS RELATIVE PERCENT (BEAKER) (test 1 % agyt=249) NEUTROPHILS ABSOLUTE COUNT (BEAKER) (test 3.67 K/ L 1.56-6.13 ogpy=063) LYMPHOCYTES ABSOLUTE COUNT (BEAKER) (test 1.27 K/ L 1.18-3.74 ufuj=993) MONOCYTES ABSOLUTE COUNT (BEAKER) (test 0.67 K/ L 0.24-0.36 vlzo=964) EOSINOPHILS ABSOLUTE COUNT (BEAKER) (test 0.44 K/ L 0.04-0.36 isgu=661) BASOPHILS ABSOLUTE COUNT (BEAKER) (test 0.04 K/ L 0.01-0.08 chdg=909) IMMATURE GRANULOCYTES-RELATIVE PERCENT (BEAKER) 1 % 0-1 (test tuoq=9730) POCT-GLUCOSE [id number] 23:07:00 Test Item Value Reference Range Comments POC-GLUCOSE METER (BEAKER) 135 mg/dL 70-110 TESTED AT [address] (test wbsy=0799) [place] [address] MRSA [id number] 18:13:00 Test Item Value Reference Range Comments CULTURE (BEAKER) (test aklk=2159) No MRSA isolated BRONCHIAL CULTURE + GRAM [id number] 18:05:00 Test Item Value Reference Range Comments CULTURE (BEAKER) (test fwtj=2873) See comment GRAM STAIN RESULT (BEAKER) (test 1+ White blood cells seen epzg=3593) GRAM STAIN RESULT (BEAKER) (test No organisms seen zvbj=12728) <1+ yeastPOCT-GLUCOSE [id number] 18:00:00 Test Item Value Reference Range Comments POC-GLUCOSE METER (BEAKER) 197 mg/dL 70-110 TESTED AT [address] (test mfit=9827) [place] [address] CT, CHEST WITH IV CONTRAST- PE TEST [id number] 12:30:00FINAL REPORT CT Chest PE Protocol dated [...] Fischer MDReport Verified Date/Time: 12:30:51 Reading Location: [facility] B1 [id number] Ortho Consult Reading Room Electronicallysigned by: CLOVIS FISCHER M.D. on 05/19/2018 12:30 PMPOCT-GLUCOSE [id number] 11:55:00 Test Item Value Reference Range Comments POC-GLUCOSE METER (BEAKER) 89 mg/dL 70-110 TESTED AT [facility] [address] [facility] (test flzx=9292) [facility] [address] [id number] 10:04:00 Test Item Value Reference Range Comments PROCALCITONIN (BEAKER) (test kpbo=3163) 1.60 ng/mL <0.05 SEPSIS RISK (ng/mL)Low: 0.05-0.50Intermediate: 0.51-2.00High: & gt;=2.01BASIC METABOLIC [id number] 06:30:00 Test Item Value Reference Range Comments SODIUM (BEAKER) (test 135 meq/L 136-145 dtwd=753) POTASSIUM (BEAKER) (test 3.8 meq/L 3.5-5.1 rtwm=287) CHLORIDE (BEAKER) (test 98 meq/L 98-107 bbxc=626) CO2 (BEAKER) (test 28 meq/L 22-29 nbne=047) BLOOD UREA NITROGEN 23 mg/dL 7-21 (BEAKER) (test zwka=967) CREATININE (BEAKER) (test 1.95 mg/dL 0.57-1.25 ukzm=871) GLUCOSE RANDOM (BEAKER) 180 mg/dL 70-105 (test kwzz=977) CALCIUM (BEAKER) (test 8.6 mg/dL 8.4-10.2 kgnk=429) EGFR (BEAKER) (test 26 mL/min/1.73 sq m ESTIMATED GFR IS NOT mues=0434) ACCURATE CREATININE CLEARANCE IN PREDICTING GLOMERULAR FILTRATION RATE. ESTIMATED GFR IS NOT APPLICABLE FOR DIALYSIS PATIENTS. [id number] 06:28:00 Test Item Value Reference Range Comments PHOSPHORUS (BEAKER) (test hdnp=738) 3.2 mg/dL 2.3-4.7 [id number] 06:28:00 Test Item Value Reference Range Comments MAGNESIUM (BEAKER) (test iuku=373) 2.1 mg/dL 1.6-2.6 B-TYPE NATRIURETIC FACTOR (BNP)2018-05-19 06:25:00 Test Item Value Reference Range Comments B-TYPE NATRIURETIC PEPTIDE (BEAKER) (test 227 pg/mL 0-100 nien=279) POCT-GLUCOSE [id number] 06:17:00 Test Item Value Reference Range Comments POC-GLUCOSE METER (BEAKER) 222 mg/dL 70-110 TESTED AT [facility] [address] [facility] (test rfrp=3277) [place] [address] CBC W/PLT COUNT & AUTO [id number] 05:32:00 Test Item Value Reference Range Comments WHITE BLOOD CELL COUNT (BEAKER) (test eclm=816) 5.8 K/ L 3.5-10.5 RED BLOOD CELL COUNT (BEAKER) (test mhii=968) 2.51 M/ L 3.93-5.22 HEMOGLOBIN (BEAKER) (test orxx=562) 7.4 GM/DL 11.2-15.7 HEMATOCRIT (BEAKER) (test uxoi=497) 23.7 % 34.1-44.9 MEAN CORPUSCULAR VOLUME (BEAKER) (test pakk=783) 94.4 fL 79.4-94.8 MEAN CORPUSCULAR HEMOGLOBIN (BEAKER) (test 29.5 pg 25.6-32.2 wlmt=389) MEAN CORPUSCULAR HEMOGLOBIN CONC (BEAKER) (test 31.2 GM/DL 32.2-35.5 gtlh=181) RED CELL DISTRIBUTION WIDTH (BEAKER) (test 15.8 % 11.7-14.4 dxxe=129) PLATELET COUNT (BEAKER) (test ouuo=023) 135 K/CU MM 150-450 MEAN PLATELET VOLUME (BEAKER) (test wdwq=405) 11.7 fL 9.4-12.3 NUCLEATED RED BLOOD CELLS (BEAKER) (test 0 /100 WBC 0-0 asor=120) NEUTROPHILS RELATIVE PERCENT (BEAKER) (test 72 % qebe=585) LYMPHOCYTES RELATIVE PERCENT (BEAKER) (test 14 % vozq=184) MONOCYTES RELATIVE PERCENT (BEAKER) (test 8 % wgwg=149) EOSINOPHILS RELATIVE PERCENT (BEAKER) (test 5 % crzf=871) BASOPHILS RELATIVE PERCENT (BEAKER) (test 1 % uhdz=034) NEUTROPHILS ABSOLUTE COUNT (BEAKER) (test 4.18 K/ L 1.56-6.13 jntb=878) LYMPHOCYTES ABSOLUTE COUNT (BEAKER) (test 0.83 K/ L 1.18-3.74 svvo=329) MONOCYTES ABSOLUTE COUNT (BEAKER) (test 0.45 K/ L 0.24-0.36 bdtw=982) EOSINOPHILS ABSOLUTE COUNT (BEAKER) (test 0.27 K/ L 0.04-0.36 eacj=431) BASOPHILS ABSOLUTE COUNT (BEAKER) (test 0.03 K/ L 0.01-0.08 elpg=771) IMMATURE GRANULOCYTES-RELATIVE PERCENT (BEAKER) 1 % 0-1 (test fcqk=8279) POCT-GLUCOSE [id number] 23:43:00 Test Item Value Reference Range Comments POC-GLUCOSE METER (BEAKER) 172 mg/dL 70-110 TESTED AT [address] (test hsue=5392) [place] [address] POCT-GLUCOSE [id number] 18:29:00 Test Item Value Reference Range Comments POC-GLUCOSE METER (BEAKER) 149 mg/dL 70-110 TESTED AT [address] (test luwi=8701) [place] [address] HEMOGLOBIN AND [id number] 16:32:00 Test Item Value Reference Range Comments HEMOGLOBIN (BEAKER) (test kdyu=620) 8.2 GM/DL 11.2-15.7 HEMATOCRIT (BEAKER) (test snbq=534) 26.4 % 34.1-44.9 BODY FLUID CULTURE + GRAM [id number] 13:39:00 Test Item Value Reference Range Comments CULTURE (BEAKER) (test dhuu=0145) No growth GRAM STAIN RESULT (BEAKER) (test 1+ WBCs cojv=1590) GRAM STAIN RESULT (BEAKER) (test No organisms seen eroc=98364) POCT-GLUCOSE [id number] 11:45:00 Test Item Value Reference Range Comments POC-GLUCOSE METER (BEAKER) 79 mg/dL 70-110 TESTED AT [address] (test mumz=2674) [place] [address] HEMOGLOBIN AND [id number] 09:18:00 Test Item Value Reference Range Comments HEMOGLOBIN (BEAKER) (test ghiy=233) 7.3 GM/DL 11.2-15.7 HEMATOCRIT (BEAKER) (test tcuh=642) 24.4 % 34.1-44.9 RAD, CHEST, 1 VIEW, NON [id number] 08:48:00Reason for exam:->acute pulmonary insufficiencyFINAL REPORT Follow [...] Verified Date/Time: 05/18/2018 08:48:08 Reading Location : [facility] Radiology Reading Room POCT-GLUCOSE [id number] 06:15:00 Test Item Value Reference Range Comments POC-GLUCOSE METER (BEAKER) 107 mg/dL 70-110 TESTED AT [address] (test fxbl=3849) [facility] [address] BASIC METABOLIC [id number] 04:27:00 Test Item Value Reference Range Comments SODIUM (BEAKER) (test 133 meq/L 136-145 lytf=133) POTASSIUM (BEAKER) (test 4.7 meq/L 3.5-5.1 zpig=966) CHLORIDE (BEAKER) (test 99 meq/L 98-107 ftxw=985) CO2 (BEAKER) (test 24 meq/L 22-29 spzy=995) BLOOD UREA NITROGEN 28 mg/dL 7-21 (BEAKER) (test iytd=147) CREATININE (BEAKER) (test 2.80 mg/dL 0.57-1.25 osiz=356) GLUCOSE RANDOM (BEAKER) 101 mg/dL 70-105 (test ghbd=364) CALCIUM (BEAKER) (test 8.6 mg/dL 8.4-10.2 xqau=766) EGFR (BEAKER) (test 17 mL/min/1.73 sq m ESTIMATED GFR IS NOT wsid=6638) ACCURATE CREATININE CLEARANCE IN PREDICTING GLOMERULAR FILTRATION RATE. ESTIMATED GFR IS NOT APPLICABLE FOR DIALYSIS PATIENTS. [id number] 04:26:00 Test Item Value Reference Range Comments PHOSPHORUS (BEAKER) (test kbxg=946) 4.4 mg/dL 2.3-4.7 [id number] 04:26:00 Test Item Value Reference Range Comments MAGNESIUM (BEAKER) (test urzv=207) 2.7 mg/dL 1.6-2.6 HEMOGLOBIN AND [id number] 04:06:00 Test Item Value Reference Range Comments HEMOGLOBIN (BEAKER) (test cjbt=815) 7.5 GM/DL 11.2-15.7 HEMATOCRIT (BEAKER) (test hwnr=253) 24.6 % 34.1-44.9 CBC W/PLT COUNT & AUTO [id number] 04:06:00 Test Item Value Reference Range Comments WHITE BLOOD CELL COUNT (BEAKER) (test cjto=723) 8.4 K/ L 3.5-10.5 RED BLOOD CELL COUNT (BEAKER) (test rhod=321) 2.59 M/ L 3.93-5.22 HEMOGLOBIN (BEAKER) (test bnwi=137) 7.5 GM/DL 11.2-15.7 HEMATOCRIT (BEAKER) (test fxgr=707) 24.6 % 34.1-44.9 MEAN CORPUSCULAR VOLUME (BEAKER) (test bxug=454) 95.0 fL 79.4-94.8 MEAN CORPUSCULAR HEMOGLOBIN (BEAKER) (test 29.0 pg 25.6-32.2 bhef=220) MEAN CORPUSCULAR HEMOGLOBIN CONC (BEAKER) (test 30.5 GM/DL 32.2-35.5 rgbe=407) RED CELL DISTRIBUTION WIDTH (BEAKER) (test 16.1 % 11.7-14.4 fyxu=565) PLATELET COUNT (BEAKER) (test yxji=338) 146 K/CU MM 150-450 MEAN PLATELET VOLUME (BEAKER) (test kkbl=852) 11.9 fL 9.4-12.3 NUCLEATED RED BLOOD CELLS (BEAKER) (test 0 /100 WBC 0-0 ebjw=667) NEUTROPHILS RELATIVE PERCENT (BEAKER) (test 75 % nriy=424) LYMPHOCYTES RELATIVE PERCENT (BEAKER) (test 12 % zmsz=015) MONOCYTES RELATIVE PERCENT (BEAKER) (test 7 % qtul=098) EOSINOPHILS RELATIVE PERCENT (BEAKER) (test 5 % fiko=442) BASOPHILS RELATIVE PERCENT (BEAKER) (test 1 % ofzr=894) NEUTROPHILS ABSOLUTE COUNT (BEAKER) (test 6.33 K/ L 1.56-6.13 akqe=528) LYMPHOCYTES ABSOLUTE COUNT (BEAKER) (test 0.99 K/ L 1.18-3.74 qszw=359) MONOCYTES ABSOLUTE COUNT (BEAKER) (test 0.60 K/ L 0.24-0.36 mkaz=833) EOSINOPHILS ABSOLUTE COUNT (BEAKER) (test 0.38 K/ L 0.04-0.36 hzyt=035) BASOPHILS ABSOLUTE COUNT (BEAKER) (test 0.06 K/ L 0.01-0.08 qrfz=589) IMMATURE GRANULOCYTES-RELATIVE PERCENT (BEAKER) 0 % 0-1 (test qhxu=7583) HEMOGLOBIN AND [id number] 00:12:00 Test Item Value Reference Range Comments HEMOGLOBIN (BEAKER) (test fxht=011) 8.0 GM/DL 11.2-15.7 HEMATOCRIT (BEAKER) (test cglf=071) 25.6 % 34.1-44.9 POCT-GLUCOSE [id number] 00:12:00 Test Item Value Reference Range Comments POC-GLUCOSE METER (BEAKER) 121 mg/dL 70-110 TESTED AT [address] (test josb=4438) [facility] [id number] POCT-GLUCOSE [id number] 21:56:00 Test Item Value Reference Range Comments POC-GLUCOSE METER (BEAKER) 69 mg/dL 70-110 TESTED AT [address] (test fhet=5719) [facility] [address] POCT-GLUCOSE [id number] 19:36:00 Test Item Value Reference Range Comments POC-GLUCOSE METER (BEAKER) 71 mg/dL 70-110 TESTED AT [address] (test epup=8639) [facility] [address] POCT-GLUCOSE [id number] 18:23:00 Test Item Value Reference Range Comments POC-GLUCOSE METER (BEAKER) 71 mg/dL 70-110 TESTED AT [address] (test rluw=2833) [facility] [address] HEMOGLOBIN AND [id number] 17:18:00 Test Item Value Reference Range Comments HEMOGLOBIN (BEAKER) (test xxex=698) 7.5 GM/DL 11.2-15.7 HEMATOCRIT (BEAKER) (test zjen=220) 24.6 % 34.1-44.9 LEGIONELLA ANTIGEN, [id number] 12:23:00 Test Item Value Reference Range Comments L. PNEUMOPHILA SEROGP 1 Negative - see Negative for L. UR AG (BEAKER) (test comment pneumophila serogroup 1 myhu=0868) antigen, suggesting no recent or current infection with this serogroup. Legionellosis cannot be ruled out since other serogroups and species may cause disease. STREP PNEUMONIAE [id number] 12:23:00 Test Item Value Reference Range Comments STREP PNEUMONIAE ANTIGEN Presumptive negative for Presumptive negative for (BEAKER) (test pneumococcal pneumonia - pneumococcal pneumonia - xycq=1743) see comment see commen Presumptive negative for pneumococcal pneumonia, suggesting no current or recent pneumococcal infection. Infection due to S. pneumoniae cannot be ruled out since the antigen present in the sample may be below the detection limit of the test.POCT-GLUCOSE [id number] 12:09:00 Test Item Value Reference Range Comments POC-GLUCOSE METER (BEAKER) 141 mg/dL 70-110 TESTED AT [address] (test hvwx=3983) [place] [id number] POCT-GLUCOSE [id number] 09:25:00 Test Item Value Reference Range Comments POC-GLUCOSE METER (BEAKER) 142 mg/dL 70-110 TESTED AT [address] (test qizb=5855) [facility] [address] RAD, ABDOMEN/KUB, 1 VIEW [id number] 08:21:00Reason for exam:->ileus, NG tube positionShould this [...] [place] Verified Date/Time: 05/17/2018 08:21:14 Reading Location: [facility] Radiology Reading Room RAD, CHEST, 1 VIEW, NON [id number] 08:14:00Reason for exam:->ET tube position, pneumonia, pulmonary [...] tube. Improvement in pulmonary opacity. Signed: Karen Moralesepag Verified Date/Time: 05/17/2018 08:14: 14 Reading Location: [facility] Radiology Reading Room POCT-GLUCOSE [id number] 05:59:00 Test Item Value Reference Range Comments POC-GLUCOSE METER (AKER) 159 mg/dL 70-110 TESTED AT [facility] [address] [facility] (test rtba=5599) [facility] [address] CBC (HEMOGRAM ONLY)2018-05-17 05:41:00 Test Item Value Reference Range Comments WHITE BLOOD CELL COUNT (BEAKER) (test vacc=642) 8.1 K/ L 3.5-10.5 RED BLOOD CELL COUNT (AKER) (test agez=135) 2.27 M/ L 3.93-5.22 HEMOGLOBIN (BEAKER) (test qpal=825) 6.6 GM/DL 11.2-15.7 HEMATOCRIT (BEAKER) (test anep=270) 21.4 % 34.1-44.9 MEAN CORPUSCULAR VOLUME (BEAKER) (test uhhw=418) 94.3 fL 79.4-94.8 MEAN CORPUSCULAR HEMOGLOBIN (BEAKER) (test 29.1 pg 25.6-32.2 kool=582) MEAN CORPUSCULAR HEMOGLOBIN CONC (BEAKER) (test 30.8 GM/DL 32.2-35.5 bnts=950) RED CELL DISTRIBUTION WIDTH (BEAKER) (test 15.9 % 11.7-14.4 ezhl=873) PLATELET COUNT (BEAKER) (test olsn=347) 153 K/CU MM 150-450 MEAN PLATELET VOLUME (BEAKER) (test ucjw=223) 12.2 fL 9.4-12.3 NUCLEATED RED BLOOD CELLS (BEAKER) (test 0 /100 WBC 0-0 wcvo=677) COMPREHENSIVE METABOLIC [id number] 04:15:00 Test Item Value Reference Range Comments TOTAL PROTEIN (BEAKER) 5.0 gm/dL 6.0-8.3 (test ftjd=479) ALBUMIN (BEAKER) (test 2.2 g/dL 3.5-5.0 trln=8870) ALKALINE PHOSPHATASE 184 U/L 40-150 (BEAKER) (test tofs=212) BILIRUBIN TOTAL (BEAKER) 0.4 mg/dL 0.2-1.2 (test llnv=076) SODIUM (BEAKER) (test 136 meq/L 136-145 zevg=943) POTASSIUM (BEAKER) (test 3.3 meq/L 3.5-5.1 lmbq=488) CHLORIDE (BEAKER) (test 105 meq/L 98-107 mkwx=481) CO2 (BEAKER) (test 23 meq/L 22-29 sgoc=334) BLOOD UREA NITROGEN 14 mg/dL 7-21 (BEAKER) (test lbbz=329) CREATININE (BEAKER) (test 1.55 mg/dL 0.57-1.25 efvp=528) GLUCOSE RANDOM (BEAKER) 145 mg/dL 70-105 (test lsog=831) CALCIUM (BEAKER) (test 7.2 mg/dL 8.4-10.2 ahhu=667) AST (SGOT) (BEAKER) (test 12 U/L 5-34 bpzz=602) ALT (SGPT) (BEAKER) (test 14 U/L 6-55 hwkh=431) EGFR (BEAKER) (test 33 mL/min/1.73 sq m ESTIMATED GFR IS NOT wcoz=8765) ACCURATE CREATININE CLEARANCE IN PREDICTING GLOMERULAR FILTRATION RATE. ESTIMATED GFR IS NOT APPLICABLE FOR DIALYSIS PATIENTS. Specimen slightly [id number] 04:12:00 Test Item Value Reference Range Comments MAGNESIUM (BEAKER) (test utkd=819) 1.4 mg/dL 1.6-2.6 CBC W/PLT COUNT & AUTO [id number] 03:55:00 Test Item Value Reference Range Comments WHITE BLOOD CELL COUNT (BEAKER) (test agky=663) 7.9 K/ L 3.5-10.5 RED BLOOD CELL COUNT (BEAKER) (test ncjp=507) 2.17 M/ L 3.93-5.22 HEMOGLOBIN (BEAKER) (test rrfn=360) 6.3 GM/DL 11.2-15.7 HEMATOCRIT (BEAKER) (test okno=362) 20.4 % 34.1-44.9 MEAN CORPUSCULAR VOLUME (BEAKER) (test lzld=761) 94.0 fL 79.4-94.8 MEAN CORPUSCULAR HEMOGLOBIN (BEAKER) (test 29.0 pg 25.6-32.2 nqjy=974) MEAN CORPUSCULAR HEMOGLOBIN CONC (BEAKER) (test 30.9 GM/DL 32.2-35.5 vqhy=010) RED CELL DISTRIBUTION WIDTH (BEAKER) (test 15.6 % 11.7-14.4 fhwe=599) PLATELET COUNT (BEAKER) (test zegx=671) 131 K/CU MM 150-450 MEAN PLATELET VOLUME (BEAKER) (test accn=094) 11.6 fL 9.4-12.3 NUCLEATED RED BLOOD CELLS (BEAKER) (test 0 /100 WBC 0-0 olno=316) NEUTROPHILS RELATIVE PERCENT (BEAKER) (test 82 % njnu=928) LYMPHOCYTES RELATIVE PERCENT (BEAKER) (test 11 % hdxc=125) MONOCYTES RELATIVE PERCENT (BEAKER) (test 6 % fmwk=047) EOSINOPHILS RELATIVE PERCENT (BEAKER) (test 0 % cuwo=706) BASOPHILS RELATIVE PERCENT (BEAKER) (test 0 % ynwx=584) NEUTROPHILS ABSOLUTE COUNT (BEAKER) (test 6.49 K/ L 1.56-6.13 bmgz=021) LYMPHOCYTES ABSOLUTE COUNT (BEAKER) (test 0.87 K/ L 1.18-3.74 whxj=563) MONOCYTES ABSOLUTE COUNT (BEAKER) (test 0.46 K/ L 0.24-0.36 nfnm=952) EOSINOPHILS ABSOLUTE COUNT (BEAKER) (test 0.02 K/ L 0.04-0.36 fayn=284) BASOPHILS ABSOLUTE COUNT (BEAKER) (test 0.03 K/ L 0.01-0.08 djhb=098) IMMATURE GRANULOCYTES-RELATIVE PERCENT (BEAKER) 0 % 0-1 (test bypj=2471) BODY FLUID CELL COUNT WITH [id number] 02:05:00 Test Item Value Reference Range Comments APPEARANCE FLUID (BEAKER) (test eemo=947) Clear Clear COLOR FLUID (BEAKER) (test etsi=193) Colorless Colorless, Straw RBC FLUID (BEAKER) (test btwt=893) 1000 /cu mm <=1 ADJUSTED WBC FLUID (BEAKER) (test jdfq=4439) 102 /cu mm <=5 LINING CELLS (BEAKER) (test onzn=3335) 31 /cu mm <=1 NEUTROPHILS FLUID (BEAKER) (test bxml=9005) 45 % LYMPHS FLUID (BEAKER) (test hoke=624) 13 % MONO/MACROPHAGE FLUID (BEAKER) (test pkkr=863) 39 % EOSINOPHILS FLUID (BEAKER) (test apnw=227) 3 % BASO FLUID (BEAKER) (test qcrp=060) 0 % CONTAINER BODY FLUID (BEAKER) (test dppx=9625) EDTA Tube POCT-GLUCOSE [id number] 00:09:00 Test Item Value Reference Range Comments POC-GLUCOSE METER (BEAKER) 152 mg/dL 70-110 TESTED AT [facility] [address] [facility] (test yztm=0811) [facility] [address] BLOOD GAS, [id number] 20:56:00 Test Item Value Reference Range Comments PH ARTERIAL (BEAKER) (test rrjj=090) 7.49 7.35-7.45 PCO2 ARTERIAL (BEAKER) (test xotf=011) 39 mmHg 35-45 PO2 ARTERIAL (BEAKER) (test vdhj=842) 70 mmHg 80-90 O2 SATURATION ARTERIAL (BEAKER) (test etvj=743) 94.9 % 96.0-97.0 HCO3 ARTERIAL (BEAKER) (test nkkl=482) 29 mmol/L 21-29 BASE EXCESS ARTERIAL (BEAKER) (test qmdu=359) 5.2 mmol/L -2.0-3.0 PATIENT TEMPERATURE (BEAKER) (test ahpr=7461) 37.5 C FIO2 (BEAKER) (test ouxv=5010) 70.0 % POCT-GLUCOSE [id number] 18:37:00 Test Item Value Reference Range Comments POC-GLUCOSE METER (BEAKER) 128 mg/dL 70-110 TESTED AT [address] (test yamb=2026) [facility] [address] POCT-GLUCOSE [id number] 16:09:00 Test Item Value Reference Range Comments POC-GLUCOSE METER (BEAKER) 121 mg/dL 70-110 TESTED AT [address] (test etcw=8224) [facility] [address] POCT-GLUCOSE [id number] 12:21:00 Test Item Value Reference Range Comments POC-GLUCOSE METER (BEAKER) 200 mg/dL 70-110 TESTED AT [address] (test hhas=1408) [facility] [address] RAD, CHEST, 1 VIEW, NON [id number] 12:06:00Reason for exam:->acute hypoxic respiratory failureShould this [...] [place] Verified Date/Time: 05/16/2018 12:06:49 Reading Location: [facility] Radiology Reading Room POCT-GLUCOSE [id number] 10:45:00 Test Item Value Reference Range Comments POC-GLUCOSE METER (BEAKER) 230 mg/dL 70-110 TESTED AT [address] (test ithy=5744) [facility] [address] BLOOD GAS, [id number] 10:32:00 Test Item Value Reference Range Comments PH ARTERIAL (BEAKER) (test dtel=437) 7.44 7.35-7.45 PCO2 ARTERIAL (BEAKER) (test pfbj=466) 41 mmHg 35-45 PO2 ARTERIAL (BEAKER) (test nkkx=865) 48 mmHg 80-90 O2 SATURATION ARTERIAL (BEAKER) (test ytcw=390) 85.0 % 96.0-97.0 HCO3 ARTERIAL (BEAKER) (test leom=568) 27 mmol/L 21-29 BASE EXCESS ARTERIAL (BEAKER) (test adyj=629) 2.2 mmol/L -2.0-3.0 PATIENT TEMPERATURE (BEAKER) (test kivu=1580) 37.0 C FIO2 (BEAKER) (test vbed=6128) 100.0 % POCT-GLUCOSE [id number] 09:00:00 Test Item Value Reference Range Comments POC-GLUCOSE METER (BEAKER) 195 mg/dL 70-110 TESTED AT [address] (test wvoo=0071) [place] [id number] COMPREHENSIVE METABOLIC [id number] 04:53:00 Test Item Value Reference Range Comments TOTAL PROTEIN (BEAKER) 6.1 gm/dL 6.0-8.3 (test gsol=943) ALBUMIN (BEAKER) (test 2.7 g/dL 3.5-5.0 cmao=2623) ALKALINE PHOSPHATASE 249 U/L 40-150 (BEAKER) (test vmid=767) BILIRUBIN TOTAL (BEAKER) 0.4 mg/dL 0.2-1.2 (test kwra=405) SODIUM (BEAKER) (test 133 meq/L 136-145 dubs=024) POTASSIUM (BEAKER) (test 4.0 meq/L 3.5-5.1 rqsh=360) CHLORIDE (BEAKER) (test 98 meq/L 98-107 xjzq=585) CO2 (BEAKER) (test 26 meq/L 22-29 yyuo=387) BLOOD UREA NITROGEN 29 mg/dL 7-21 (BEAKER) (test dlqe=558) CREATININE (BEAKER) (test 2.62 mg/dL 0.57-1.25 hmjv=576) GLUCOSE RANDOM (BEAKER) 157 mg/dL 70-105 (test buxv=615) CALCIUM (BEAKER) (test 8.5 mg/dL 8.4-10.2 mzzv=310) AST (SGOT) (BEAKER) (test 21 U/L 5-34 ofdu=347) ALT (SGPT) (BEAKER) (test 27 U/L 6-55 djdf=584) EGFR (BEAKER) (test 18 mL/min/1.73 sq m ESTIMATED GFR IS NOT xrbc=0146) ACCURATE CREATININE CLEARANCE IN PREDICTING GLOMERULAR FILTRATION RATE. ESTIMATED GFR IS NOT APPLICABLE FOR DIALYSIS PATIENTS. [id number] 04:51:00 Test Item Value Reference Range Comments PHOSPHORUS (BEAKER) (test wtnj=859) 4.4 mg/dL 2.3-4.7 [id number] 04:51:00 Test Item Value Reference Range Comments MAGNESIUM (BEAKER) (test xuwo=551) 1.8 mg/dL 1.6-2.6 CALCIUM, [id number] 04:33:00 Test Item Value Reference Range Comments CALCIUM IONIZED (BEAKER) (test sfvx=682) 1.13 mmol/L 1.12-1.27 PH, BLOOD (BEAKER) (test kyme=1055) 7.45 POCT-GLUCOSE [id number] 04:16:00 Test Item Value Reference Range Comments POC-GLUCOSE METER (BEAKER) 185 mg/dL 70-110 TESTED AT [address] (test pzfr=2377) [facility] [address] POCT-GLUCOSE [id number] 21:16:00 Test Item Value Reference Range Comments POC-GLUCOSE METER (BEAKER) 166 mg/dL 70-110 TESTED AT [address] (test ghdg=5065) [facility] [address] POCT-GLUCOSE [id number] 18:06:00 Test Item Value Reference Range Comments POC-GLUCOSE METER (BEAKER) 193 mg/dL 70-110 TESTED AT [address] (test fiaq=3839) [place] [id number] PH, BODY [id number] 14:59:00 Test Item Value Reference Range Comments PH, BODY FLUID (BEAKER) (test eoij=5428) 7.75 POCT-GLUCOSE [id number] 14:54:00 Test Item Value Reference Range Comments POC-GLUCOSE METER (BEAKER) 226 mg/dL 70-110 TESTED AT [facility] [address] [facility] (test ryni=3214) [facility] [address] BODY FLUID CELL COUNT WITH [id number] 14:41:00 Test Item Value Reference Range Comments APPEARANCE FLUID (BEAKER) (test pwgs=553) Cloudy Clear COLOR FLUID (BEAKER) (test kefl=729) [place] Colorless, Straw RBC FLUID (BEAKER) (test dqpi=124) 3000 /cu mm <=1 ADJUSTED WBC FLUID (BEAKER) (test tekz=1230) 205 /cu mm <=5 LINING CELLS (BEAKER) (test npqz=1593) 2 /cu mm <=1 NEUTROPHILS FLUID (BEAKER) (test ngcu=2994) 17 % LYMPHS FLUID (BEAKER) (test xfor=974) 52 % MONO/MACROPHAGE FLUID (BEAKER) (test ugtp=181) 31 % EOSINOPHILS FLUID (BEAKER) (test urgy=077) 0 % BASO FLUID (BEAKER) (test gpoi=526) 0 % CONTAINER BODY FLUID (BEAKER) (test zozl=4700) EDTA Tube LACTATE DEHYDROGENASE (LDH), BODY [id number] 13:26:00 Test Item Value Reference Range Comments LACTATE DEHYDROGENASE FLUID (BEAKER) < U/L Light's criteria identifies (test gnpm=554) effusions if one or more are pre Absence of reference range indicates that normals have not been defined.Assay performance has not been validated for this type of specimen.PROTEIN, BODY [id number] 13:26:00 Test Item Value Reference Range Comments PROTEIN FLUID (BEAKER) (test 2.3 g/dL Light's criteria identifies upch=038) effusions if one or more are pre Absence of reference range indicates that normals have not been defined.Assay performance has not been validated for this type of specimen.RAD, CHEST, 1 VIEW , NON [id number] 13:09:00Reason for exam:->post right thoracentesis Should this [...] MDReport Verified Date/Time: 05/15/2018 13:09:02 Reading Location: [facility] Radiology Reading Room RAD, CHEST, 1 VIEW, NON [id number] 11:51:00Reason for exam:->increased work of breathing/hypoxiaShould [...] [place] Verified Date/Time: 05/15/2018 11:51:05 Reading Location: [facility] Radiology Reading Room Electronically signed by: DICK DALLAS M.D. on 2018 11:51 AMPOCT-LACTIC ACID, [id number] 11:19:00 Test Item Value Reference Range Comments POC-LACTIC ACID, ARTERIAL 0.9 mmol/L 0.4-1.3 TESTED AT [address] ([facility]) (test fqmv=4512) [facility] [address] POCT-BLOOD GASES, [id number] 11:19:00 Test Item Value Reference Range Comments TEMP, CELSIUS-POC (BEAKER) 37.0 (test hbgw=1157) [facility] (test TESTED AT [address] rzgp=3024) [facility] [address] PH, ARTERIAL-POC (BEAKER) 7.377 7.350-7.450 (test yheo=8646) PCO2, ARTERIAL-POC (BEAKER) 47.3 mm Hg 35.0-45.0 (test qqbi=7705) PO2, ARTERIAL-POC (BEAKER) 62.0 mm Hg 80.0-90.0 (test bark=4992) SO2, ARTERIAL-POC (BEAKER) 90.0 % 96.0-97.0 (test sqly=8787) HCO3, ARTERIAL-POC (BEAKER) 27.8 meq/L 21.0-29.0 (test tlcx=6994) BASE EXCESS, ARTERIAL-POC 3.0 meq/L -2.0-3.0 (BEAKER) (test eptw=2112) [id number] 11:19:00 Test Item Value Reference Range Comments POC-SODIUM (BEAKER) (test 133 meq/L 135-148 TESTED AT [address] jdbi=7411) [place] [address] [id number] 11:19:00 Test Item Value Reference Range Comments POC-POTASSIUM (BEAKER) (test 4.0 meq/L 3.6-5.5 TESTED AT [address] llhy=2965) [place] [address] [id number] 11:19:00 Test Item Value Reference Range Comments POC-GLUCOSE (BEAKER) (test 213 mg/dL 70-110 TESTED AT [address] qpau=5436) [place] [address] POCT-CALCIUM [id number] 11:19:00 Test Item Value Reference Range Comments POC-CALCIUM IONIZED (BEAKER) 1.14 mmol/L 1.12-1.27 TESTED AT [address] (test bqxn=3481) [place] [address] [id number] 11:19:00 Test Item Value Reference Range Comments POC-HEMATOCRIT (BEAKER) (test 26 % 36-45 TESTED AT [address] uygq=4701) [place] [address] [id number] 11:19:00 Test Item Value Reference Range Comments POC-HEMOGLOBIN (BEAKER) 8.8 g/dL 12.0-15.0 TESTED AT [address] (test gped=8878) [facility] [address]HRRQKW AT [address] [address] POCT-GLUCOSE [id number] 07:33:00 Test Item Value Reference Range Comments POC-GLUCOSE METER (BEAKER) 125 mg/dL 70-110 TESTED AT [address] (test chsk=5343) [facility] [address] POCT-GLUCOSE [id number] 05:43:00 Test Item Value Reference Range Comments POC-GLUCOSE METER (BEAKER) 89 mg/dL 70-110 TESTED AT [address] (test ekro=3635) [facility] [address] POCT-GLUCOSE [id number] 04:37:00 Test Item Value Reference Range Comments POC-GLUCOSE METER (BEAKER) 41 mg/dL 70-110 TESTED AT [address] (test wnck=5929) [facility] [address] COMPREHENSIVE METABOLIC [id number] 04:28:00 Test Item Value Reference Range Comments TOTAL PROTEIN (BEAKER) 6.3 gm/dL 6.0-8.3 (test ogkp=522) ALBUMIN (BEAKER) (test 2.9 g/dL 3.5-5.0 avls=5034) ALKALINE PHOSPHATASE 239 U/L 40-150 (BEAKER) (test pauw=934) BILIRUBIN TOTAL (BEAKER) 0.3 mg/dL 0.2-1.2 (test nlrf=543) SODIUM (BEAKER) (test 135 meq/L 136-145 dtue=917) POTASSIUM (BEAKER) (test 3.9 meq/L 3.5-5.1 kbvz=673) CHLORIDE (BEAKER) (test 100 meq/L 98-107 ankj=194) CO2 (BEAKER) (test 26 meq/L 22-29 yizi=439) BLOOD UREA NITROGEN 21 mg/dL 7-21 (BEAKER) (test pedw=856) CREATININE (BEAKER) (test 2.02 mg/dL 0.57-1.25 dndz=583) GLUCOSE RANDOM (BEAKER) 40 mg/dL 70-105 (test jwrs=251) CALCIUM (BEAKER) (test 8.5 mg/dL 8.4-10.2 gqkz=109) AST (SGOT) (BEAKER) (test 23 U/L 5-34 nljn=924) ALT (SGPT) (BEAKER) (test 26 U/L 6-55 xhaa=045) EGFR (BEAKER) (test 25 mL/min/1.73 sq m ESTIMATED GFR IS NOT wqcb=3498) ACCURATE CREATININE CLEARANCE IN PREDICTING GLOMERULAR FILTRATION RATE. ESTIMATED GFR IS NOT APPLICABLE FOR DIALYSIS PATIENTS. [id number] 04:20:00 Test Item Value Reference Range Comments MAGNESIUM (BEAKER) (test mhrk=681) 1.9 mg/dL 1.6-2.6 CBC W/PLT COUNT & AUTO [id number] 04:04:00 Test Item Value Reference Range Comments WHITE BLOOD CELL COUNT (BEAKER) (test fsee=762) 7.6 K/ L 3.5-10.5 RED BLOOD CELL COUNT (BEAKER) (test ehmt=242) 2.46 M/ L 3.93-5.22 HEMOGLOBIN (BEAKER) (test berf=547) 7.2 GM/DL 11.2-15.7 HEMATOCRIT (BEAKER) (test cutq=852) 23.4 % 34.1-44.9 MEAN CORPUSCULAR VOLUME (BEAKER) (test ppiv=179) 95.1 fL 79.4-94.8 MEAN CORPUSCULAR HEMOGLOBIN (BEAKER) (test 29.3 pg 25.6-32.2 oduk=509) MEAN CORPUSCULAR HEMOGLOBIN CONC (BEAKER) (test 30.8 GM/DL 32.2-35.5 aics=316) RED CELL DISTRIBUTION WIDTH (BEAKER) (test 15.9 % 11.7-14.4 kvfb=123) PLATELET COUNT (BEAKER) (test hjft=849) 155 K/CU MM 150-450 MEAN PLATELET VOLUME (BEAKER) (test xmsw=461) 12.5 fL 9.4-12.3 NUCLEATED RED BLOOD CELLS (BEAKER) (test 0 /100 WBC 0-0 wlcg=830) NEUTROPHILS RELATIVE PERCENT (BEAKER) (test 77 % bgol=753) LYMPHOCYTES RELATIVE PERCENT (BEAKER) (test 13 % bakr=110) MONOCYTES RELATIVE PERCENT (BEAKER) (test 8 % zidv=592) EOSINOPHILS RELATIVE PERCENT (BEAKER) (test 1 % pklq=349) BASOPHILS RELATIVE PERCENT (BEAKER) (test 1 % lvfx=918) NEUTROPHILS ABSOLUTE COUNT (BEAKER) (test 5.81 K/ L 1.56-6.13 obif=343) LYMPHOCYTES ABSOLUTE COUNT (BEAKER) (test 0.96 K/ L 1.18-3.74 ytjh=996) MONOCYTES ABSOLUTE COUNT (BEAKER) (test 0.63 K/ L 0.24-0.36 tetp=259) EOSINOPHILS ABSOLUTE COUNT (BEAKER) (test 0.11 K/ L 0.04-0.36 nknl=969) BASOPHILS ABSOLUTE COUNT (BEAKER) (test 0.04 K/ L 0.01-0.08 shgi=068) IMMATURE GRANULOCYTES-RELATIVE PERCENT (BEAKER) 1 % 0-1 (test rhkr=6339) POCT-GLUCOSE [id number] 17:58:00 Test Item Value Reference Range Comments POC-GLUCOSE METER (BEAKER) 170 mg/dL 70-110 TESTED AT [address] (test ptep=7007) [facility] [address] POCT-GLUCOSE [id number] 12:31:00 Test Item Value Reference Range Comments POC-GLUCOSE METER (BEAKER) 124 mg/dL 70-110 TESTED AT [address] (test aotq=4784) [facility] [address] PROTHROMBIN [id number] 10:38:00 Test Item Value Reference Range Comments PROTIME (BEAKER) (test fkvn=118) 14.4 seconds 11.7-14.7 INR (BEAKER) (test fefh=585) 1.1 <=5.9 RECOMMENDED COUMADIN/WARFARIN INR THERAPY RANGESSTANDARD DOSE: 2.0 - 3.0 Includes: PROPHYLAXIS forvenous thrombosis, systemic embolization; TREATMENT for venous thrombosis and/or pulmonary embolus.HIGH RISK: Target INR is 2.5-3.5 for patients with mechanical heart valves.B-TYPE NATRIURETIC FACTOR (BNP)2018-05 05:28:00 Test Item Value Reference Range Comments B-TYPE NATRIURETIC PEPTIDE (BEAKER) (test 336 pg/mL 0-100 bswt=859) [id number] 05:12:00 Test Item Value Reference Range Comments PHOSPHORUS (BEAKER) (test aods=008) 4.9 mg/dL 2.3-4.7 [id number] 05:12:00 Test Item Value Reference Range Comments MAGNESIUM (BEAKER) (test fzhy=768) 1.5 mg/dL 1.6-2.6 COMPREHENSIVE METABOLIC [id number] 05:12:00 Test Item Value Reference Range Comments TOTAL PROTEIN (BEAKER) 6.4 gm/dL 6.0-8.3 (test xwyz=424) ALBUMIN (BEAKER) (test 2.8 g/dL 3.5-5.0 gqtz=0514) ALKALINE PHOSPHATASE 221 U/L 40-150 (BEAKER) (test kvoz=232) BILIRUBIN TOTAL (BEAKER) 0.3 mg/dL 0.2-1.2 (test mphh=834) SODIUM (BEAKER) (test 130 meq/L 136-145 wzmh=650) POTASSIUM (BEAKER) (test 4.3 meq/L 3.5-5.1 puht=767) CHLORIDE (BEAKER) (test 96 meq/L 98-107 qfgo=454) CO2 (BEAKER) (test 25 meq/L 22-29 dmzs=733) BLOOD UREA NITROGEN 35 mg/dL 7-21 (BEAKER) (test qyyj=429) CREATININE (BEAKER) (test 3.26 mg/dL 0.57-1.25 etzs=923) GLUCOSE RANDOM (BEAKER) 99 mg/dL 70-105 (test jrtr=523) CALCIUM (BEAKER) (test 7.6 mg/dL 8.4-10.2 bfeb=514) AST (SGOT) (BEAKER) (test 20 U/L 5-34 qhxq=856) ALT (SGPT) (BEAKER) (test 22 U/L 6-55 ksyq=177) EGFR (BEAKER) (test 14 mL/min/1.73 sq m ESTIMATED GFR IS NOT tsew=4530) ACCURATE CREATININE CLEARANCE IN PREDICTING GLOMERULAR FILTRATION RATE. ESTIMATED GFR IS NOT APPLICABLE FOR DIALYSIS PATIENTS. CBC W/PLT COUNT & AUTO [id number] 04:57:00 Test Item Value Reference Range Comments WHITE BLOOD CELL COUNT (BEAKER) (test olop=095) 9.5 K/ L 3.5-10.5 RED BLOOD CELL COUNT (BEAKER) (test tbzg=907) 2.63 M/ L 3.93-5.22 HEMOGLOBIN (BEAKER) (test fwda=428) 7.5 GM/DL 11.2-15.7 HEMATOCRIT (BEAKER) (test neow=254) 24.9 % 34.1-44.9 MEAN CORPUSCULAR VOLUME (BEAKER) (test fyxc=921) 94.7 fL 79.4-94.8 MEAN CORPUSCULAR HEMOGLOBIN (BEAKER) (test 28.5 pg 25.6-32.2 etvd=394) MEAN CORPUSCULAR HEMOGLOBIN CONC (BEAKER) (test 30.1 GM/DL 32.2-35.5 qpov=564) RED CELL DISTRIBUTION WIDTH (BEAKER) (test 15.9 % 11.7-14.4 gldd=178) PLATELET COUNT (BEAKER) (test bliw=959) 164 K/CU MM 150-450 MEAN PLATELET VOLUME (BEAKER) (test jeng=624) 12.5 fL 9.4-12.3 NUCLEATED RED BLOOD CELLS (BEAKER) (test 0 /100 WBC 0-0 atii=782) NEUTROPHILS RELATIVE PERCENT (BEAKER) (test 76 % ajcd=934) LYMPHOCYTES RELATIVE PERCENT (BEAKER) (test 11 % govg=341) MONOCYTES RELATIVE PERCENT (BEAKER) (test 8 % zbnx=222) EOSINOPHILS RELATIVE PERCENT (BEAKER) (test 4 % pwie=013) BASOPHILS RELATIVE PERCENT (BEAKER) (test 1 % jbwq=026) NEUTROPHILS ABSOLUTE COUNT (BEAKER) (test 7.28 K/ L 1.56-6.13 hwwq=455) LYMPHOCYTES ABSOLUTE COUNT (BEAKER) (test 1.07 K/ L 1.18-3.74 pzih=727) MONOCYTES ABSOLUTE COUNT (BEAKER) (test 0.74 K/ L 0.24-0.36 myiz=933) EOSINOPHILS ABSOLUTE COUNT (BEAKER) (test 0.35 K/ L 0.04-0.36 ggts=136) BASOPHILS ABSOLUTE COUNT (BEAKER) (test 0.05 K/ L 0.01-0.08 waeg=403) IMMATURE GRANULOCYTES-RELATIVE PERCENT (BEAKER) 1 % 0-1 (test lpvp=6423) POCT-GLUCOSE [id number] 21:56:00 Test Item Value Reference Range Comments POC-GLUCOSE METER (BEAKER) 109 mg/dL 70-110 TESTED AT [facility] [address] [facility] (test rznu=5547) [facility] [address] POCT-GLUCOSE [id number] 17:52:00 Test Item Value Reference Range Comments POC-GLUCOSE METER (BEAKER) 122 mg/dL 70-110 TESTED AT [address] (test jpxn=4996) [facility] [address] RAD, CHEST, 1 VIEW, NON [id number] 15:32:00Reason for exam:-> hypoxiaShould this be performed [...] Cristina Verified Date/Time: 05/13/2018 15:32:33 Reading Location: [address] Reading Room POCT-GLUCOSE [id number] 11:50:00 Test Item Value Reference Range Comments POC-GLUCOSE METER (BEAKER) 189 mg/dL 70-110 TESTED AT [address] (test qmzm=0519) [facility] [address] POCT-GLUCOSE [id number] 08:03:00 Test Item Value Reference Range Comments POC-GLUCOSE METER (BEAKER) 226 mg/dL 70-110 TESTED AT [address] (test imcz=3620) [facility] [address] [id number] 04:23:00 Test Item Value Reference Range Comments PHOSPHORUS (BEAKER) (test urqz=617) 3.8 mg/dL 2.3-4.7 [id number] 04:23:00 Test Item Value Reference Range Comments MAGNESIUM (BEAKER) (test ggce=615) 1.7 mg/dL 1.6-2.6 COMPREHENSIVE METABOLIC [id number] 04:23:00 Test Item Value Reference Range Comments TOTAL PROTEIN (BEAKER) 6.0 gm/dL 6.0-8.3 (test mmmx=939) ALBUMIN (BEAKER) (test 2.7 g/dL 3.5-5.0 xkgm=9404) ALKALINE PHOSPHATASE 213 U/L 40-150 (BEAKER) (test sqji=697) BILIRUBIN TOTAL (BEAKER) 0.3 mg/dL 0.2-1.2 (test ndil=049) SODIUM (BEAKER) (test 134 meq/L 136-145 vtfq=878) POTASSIUM (BEAKER) (test 4.1 meq/L 3.5-5.1 rrlv=388) CHLORIDE (BEAKER) (test 99 meq/L 98-107 shse=085) CO2 (BEAKER) (test 26 meq/L 22-29 bjbq=778) BLOOD UREA NITROGEN 27 mg/dL 7-21 (BEAKER) (test ytri=387) CREATININE (BEAKER) (test 2.71 mg/dL 0.57-1.25 vtsy=756) GLUCOSE RANDOM (BEAKER) 129 mg/dL 70-105 (test lzjx=965) CALCIUM (BEAKER) (test 8.2 mg/dL 8.4-10.2 ifhv=360) AST (SGOT) (BEAKER) (test 23 U/L 5-34 eabn=803) ALT (SGPT) (BEAKER) (test 27 U/L 6-55 xbeq=511) EGFR (BEAKER) (test 18 mL/min/1.73 sq m ESTIMATED GFR IS NOT webj=7786) ACCURATE CREATININE CLEARANCE IN PREDICTING GLOMERULAR FILTRATION RATE. ESTIMATED GFR IS NOT APPLICABLE FOR DIALYSIS PATIENTS. CBC W/PLT COUNT & AUTO [id number] 04:17:00 Test Item Value Reference Range Comments WHITE BLOOD CELL COUNT (BEAKER) (test aznc=627) 8.4 K/ L 3.5-10.5 RED BLOOD CELL COUNT (BEAKER) (test ltie=398) 2.47 M/ L 3.93-5.22 HEMOGLOBIN (BEAKER) (test pvkk=031) 7.2 GM/DL 11.2-15.7 HEMATOCRIT (BEAKER) (test nnew=802) 23.5 % 34.1-44.9 MEAN CORPUSCULAR VOLUME (BEAKER) (test bkxi=113) 95.1 fL 79.4-94.8 MEAN CORPUSCULAR HEMOGLOBIN (BEAKER) (test 29.1 pg 25.6-32.2 eifc=246) MEAN CORPUSCULAR HEMOGLOBIN CONC (BEAKER) (test 30.6 GM/DL 32.2-35.5 ykrd=534) RED CELL DISTRIBUTION WIDTH (BEAKER) (test 16.0 % 11.7-14.4 ccno=631) PLATELET COUNT (BEAKER) (test zwno=367) 144 K/CU MM 150-450 MEAN PLATELET VOLUME (BEAKER) (test jspq=972) 12.6 fL 9.4-12.3 NUCLEATED RED BLOOD CELLS (BEAKER) (test 0 /100 WBC 0-0 pmab=092) NEUTROPHILS RELATIVE PERCENT (BEAKER) (test 72 % eups=757) LYMPHOCYTES RELATIVE PERCENT (BEAKER) (test 13 % lror=424) MONOCYTES RELATIVE PERCENT (BEAKER) (test 9 % jogm=700) EOSINOPHILS RELATIVE PERCENT (BEAKER) (test 4 % uykx=039) BASOPHILS RELATIVE PERCENT (BEAKER) (test 1 % tixe=523) NEUTROPHILS ABSOLUTE COUNT (BEAKER) (test 6.04 K/ L 1.56-6.13 tccp=521) LYMPHOCYTES ABSOLUTE COUNT (BEAKER) (test 1.08 K/ L 1.18-3.74 peje=127) MONOCYTES ABSOLUTE COUNT (BEAKER) (test 0.78 K/ L 0.24-0.36 gvye=166) EOSINOPHILS ABSOLUTE COUNT (BEAKER) (test 0.37 K/ L 0.04-0.36 vbjs=179) BASOPHILS ABSOLUTE COUNT (BEAKER) (test 0.04 K/ L 0.01-0.08 yvqn=140) IMMATURE GRANULOCYTES-RELATIVE PERCENT (BEAKER) 1 % 0-1 (test hbdi=9526) POCT-GLUCOSE [id number] 21:34:00 Test Item Value Reference Range Comments POC-GLUCOSE METER (BEAKER) 173 mg/dL 70-110 TESTED AT [address] (test svzq=1648) [place] [address] BLOOD [id number] 19:00:00 Test Item Value Reference Range Comments CULTURE (BEAKER) (test eajb=5600) No growth in 5 days BLOOD [id number] 19:00:00 Test Item Value Reference Range Comments CULTURE (BEAKER) (test qqhe=9458) No growth in 5 days POCT-GLUCOSE [id number] 17:19:00 Test Item Value Reference Range Comments POC-GLUCOSE METER (BEAKER) 299 mg/dL 70-110 TESTED AT [address] (test wrpd=3860) [facility] [address] POCT-GLUCOSE [id number] 12:23:00 Test Item Value Reference Range Comments POC-GLUCOSE METER (BEAKER) 141 mg/dL 70-110 TESTED AT [address] (test yrwy=9440) [facility] [address] BODY FLUID CULTURE + GRAM [id number] 10:00:00 Test Item Value Reference Range Comments CULTURE (BEAKER) (test fext=8124) No growth GRAM STAIN RESULT (BEAKER) (test <1+ WBCs vkqp=8893) GRAM STAIN RESULT (BEAKER) (test No organisms seen argh=44067) POCT-GLUCOSE [id number] 07:56:00 Test Item Value Reference Range Comments POC-GLUCOSE METER (BEAKER) 116 mg/dL 70-110 TESTED AT [address] (test rhhh=3236) [facility] [address] [id number] 05:35:00 Test Item Value Reference Range Comments PHOSPHORUS (BEAKER) (test tyeu=102) 2.7 mg/dL 2.3-4.7 [id number] 05:35:00 Test Item Value Reference Range Comments MAGNESIUM (BEAKER) (test ihnr=708) 1.6 mg/dL 1.6-2.6 COMPREHENSIVE METABOLIC [id number] 05:35:00 Test Item Value Reference Range Comments TOTAL PROTEIN (BEAKER) 6.0 gm/dL 6.0-8.3 (test pxim=172) ALBUMIN (BEAKER) (test 2.7 g/dL 3.5-5.0 mbdo=4198) ALKALINE PHOSPHATASE 204 U/L 40-150 (BEAKER) (test uwna=469) BILIRUBIN TOTAL (BEAKER) 0.2 mg/dL 0.2-1.2 (test iyvq=674) SODIUM (BEAKER) (test 136 meq/L 136-145 sqof=731) POTASSIUM (BEAKER) (test 3.8 meq/L 3.5-5.1 rsuy=851) CHLORIDE (BEAKER) (test 101 meq/L 98-107 xydy=592) CO2 (BEAKER) (test 29 meq/L 22-29 shmz=521) BLOOD UREA NITROGEN 18 mg/dL 7-21 (BEAKER) (test stsa=166) CREATININE (BEAKER) (test 2.09 mg/dL 0.57-1.25 kbkj=219) GLUCOSE RANDOM (BEAKER) 149 mg/dL 70-105 (test jiay=239) CALCIUM (BEAKER) (test 8.1 mg/dL 8.4-10.2 dhcg=026) AST (SGOT) (BEAKER) (test 19 U/L 5-34 kdbn=341) ALT (SGPT) (BEAKER) (test 25 U/L 6-55 fgjx=799) EGFR (BEAKER) (test 24 mL/min/1.73 sq m ESTIMATED GFR IS NOT ywzp=5797) ACCURATE CREATININE CLEARANCE IN PREDICTING GLOMERULAR FILTRATION RATE. ESTIMATED GFR IS NOT APPLICABLE FOR DIALYSIS PATIENTS. CBC W/PLT COUNT & AUTO [id number] 05:03:00 Test Item Value Reference Range Comments WHITE BLOOD CELL COUNT (BEAKER) (test gqnq=420) 7.7 K/ L 3.5-10.5 RED BLOOD CELL COUNT (BEAKER) (test zxmd=341) 2.48 M/ L 3.93-5.22 HEMOGLOBIN (BEAKER) (test dzrd=593) 7.2 GM/DL 11.2-15.7 HEMATOCRIT (BEAKER) (test dbfi=940) 23.4 % 34.1-44.9 MEAN CORPUSCULAR VOLUME (BEAKER) (test kyuh=441) 94.4 fL 79.4-94.8 MEAN CORPUSCULAR HEMOGLOBIN (BEAKER) (test 29.0 pg 25.6-32.2 jogw=661) MEAN CORPUSCULAR HEMOGLOBIN CONC (BEAKER) (test 30.8 GM/DL 32.2-35.5 itwy=679) RED CELL DISTRIBUTION WIDTH (BEAKER) (test 16.0 % 11.7-14.4 bnrn=478) PLATELET COUNT (BEAKER) (test ocxj=791) 133 K/CU MM 150-450 MEAN PLATELET VOLUME (BEAKER) (test acst=155) 12.8 fL 9.4-12.3 NUCLEATED RED BLOOD CELLS (BEAKER) (test 0 /100 WBC 0-0 tzpq=758) NEUTROPHILS RELATIVE PERCENT (BEAKER) (test 74 % wzab=662) LYMPHOCYTES RELATIVE PERCENT (BEAKER) (test 12 % wewc=737) MONOCYTES RELATIVE PERCENT (BEAKER) (test 9 % esdg=922) EOSINOPHILS RELATIVE PERCENT (BEAKER) (test 4 % bvix=884) BASOPHILS RELATIVE PERCENT (BEAKER) (test 0 % bphp=196) NEUTROPHILS ABSOLUTE COUNT (BEAKER) (test 5.75 K/ L 1.56-6.13 osvp=909) LYMPHOCYTES ABSOLUTE COUNT (BEAKER) (test 0.92 K/ L 1.18-3.74 nzsb=353) MONOCYTES ABSOLUTE COUNT (BEAKER) (test 0.69 K/ L 0.24-0.36 eoxh=214) EOSINOPHILS ABSOLUTE COUNT (BEAKER) (test 0.29 K/ L 0.04-0.36 auxs=679) BASOPHILS ABSOLUTE COUNT (BEAKER) (test 0.03 K/ L 0.01-0.08 ebrl=949) IMMATURE GRANULOCYTES-RELATIVE PERCENT (BEAKER) 1 % 0-1 (test wcef=3660) POCT-GLUCOSE [id number] 00:49:00 Test Item Value Reference Range Comments POC-GLUCOSE METER (BEAKER) 182 mg/dL 70-110 TESTED AT [place] [id number] [facility] (test rxgz=0494) [facility] [address] POCT-GLUCOSE [id number] 16:30:00 Test Item Value Reference Range Comments POC-GLUCOSE METER (BEAKER) 104 mg/dL 70-110 TESTED AT [address] (test bxza=6676) [place] [id number] RAD, CHEST, 1 VIEW, NON [id number] 15:10:00Reason for exam:->Trialysis line placement Should this [...] Verified Date/ Time: 05/11/2018 15:10:31 Reading Location: [facility] Radiology Reading Room POCT-GLUCOSE [id number] 12:32:00 Test Item Value Reference Range Comments POC-GLUCOSE METER (BEAKER) 111 mg/dL 70-110 TESTED AT [facility] [address] [facility] (test pxha=5134) [facility] [address] POCT-GLUCOSE [id number] 08:05:00 Test Item Value Reference Range Comments POC-GLUCOSE METER (BEAKER) 135 mg/dL 70-110 TESTED AT [facility] [address] [facility] (test dleh=1863) [facility] [address] PT/[id number] 05:41:00 Test Item Value Reference Range Comments PROTIME (BEAKER) (test emsx=963) 14.4 seconds 11.7-14.7 INR (BEAKER) (test crla=950) 1.1 <=5.9 PARTIAL THROMBOPLASTIN TIME (BEAKER) (test 37.5 seconds 22.5-36.0 ixec=635) RECOMMENDED COUMADIN/WARFARIN INR THERAPY RANGESSTANDARD DOSE: 2.0 - 3.0 Includes: PROPHYLAXIS forvenous thrombosis, systemic embolization; TREATMENT for venous thrombosis and/or pulmonary embolus.HIGH RISK: Target INR is 2.5-3.5 for patients with mechanical heart valves.COMPREHENSIVE METABOLIC [id number] 05:30:00 Test Item Value Reference Range Comments TOTAL PROTEIN (BEAKER) 6.4 gm/dL 6.0-8.3 (test wqej=902) ALBUMIN (BEAKER) (test 2.9 g/dL 3.5-5.0 ykgo=3975) ALKALINE PHOSPHATASE 224 U/L 40-150 (BEAKER) (test wzge=660) BILIRUBIN TOTAL (BEAKER) 0.3 mg/dL 0.2-1.2 (test qyre=815) SODIUM (BEAKER) (test 134 meq/L 136-145 cfog=588) POTASSIUM (BEAKER) (test 3.9 meq/L 3.5-5.1 oyfw=224) CHLORIDE (BEAKER) (test 101 meq/L 98-107 nzyj=067) CO2 (BEAKER) (test 26 meq/L 22-29 cjka=456) BLOOD UREA NITROGEN 30 mg/dL 7-21 (BEAKER) (test qwsn=818) CREATININE (BEAKER) (test 3.21 mg/dL 0.57-1.25 hpeu=249) GLUCOSE RANDOM (BEAKER) 113 mg/dL 70-105 (test ltkc=269) CALCIUM (BEAKER) (test 8.2 mg/dL 8.4-10.2 cgzc=598) AST (SGOT) (BEAKER) (test 19 U/L 5-34 emjq=922) ALT (SGPT) (BEAKER) (test 25 U/L 6-55 kqbj=951) EGFR (BEAKER) (test 14 mL/min/1.73 sq m ESTIMATED GFR IS NOT jphk=1508) ACCURATE CREATININE CLEARANCE IN PREDICTING GLOMERULAR FILTRATION RATE. ESTIMATED GFR IS NOT APPLICABLE FOR DIALYSIS PATIENTS. [id number] 05:26:00 Test Item Value Reference Range Comments PHOSPHORUS (BEAKER) (test remo=219) 3.7 mg/dL 2.3-4.7 [id number] 05:26:00 Test Item Value Reference Range Comments MAGNESIUM (BEAKER) (test epuh=230) 1.8 mg/dL 1.6-2.6 CBC W/PLT COUNT & AUTO [id number] 05:22:00 Test Item Value Reference Range Comments WHITE BLOOD CELL COUNT (BEAKER) (test qsse=093) 10.4 K/ L 3.5-10.5 RED BLOOD CELL COUNT (BEAKER) (test cury=162) 2.74 M/ L 3.93-5.22 HEMOGLOBIN (BEAKER) (test zcgg=071) 7.9 GM/DL 11.2-15.7 HEMATOCRIT (BEAKER) (test ftzq=351) 25.5 % 34.1-44.9 MEAN CORPUSCULAR VOLUME (BEAKER) (test thxz=494) 93.1 fL 79.4-94.8 MEAN CORPUSCULAR HEMOGLOBIN (BEAKER) (test 28.8 pg 25.6-32.2 hald=187) MEAN CORPUSCULAR HEMOGLOBIN CONC (BEAKER) (test 31.0 GM/DL 32.2-35.5 cbkn=761) RED CELL DISTRIBUTION WIDTH (BEAKER) (test 16.3 % 11.7-14.4 hrhh=447) PLATELET COUNT (BEAKER) (test axdp=869) 155 K/CU MM 150-450 MEAN PLATELET VOLUME (BEAKER) (test nxsk=661) 12.2 fL 9.4-12.3 NUCLEATED RED BLOOD CELLS (BEAKER) (test 0 /100 WBC 0-0 ynrn=443) NEUTROPHILS RELATIVE PERCENT (BEAKER) (test 76 % syze=402) LYMPHOCYTES RELATIVE PERCENT (BEAKER) (test 11 % gukd=578) MONOCYTES RELATIVE PERCENT (BEAKER) (test 9 % jnul=965) EOSINOPHILS RELATIVE PERCENT (BEAKER) (test 4 % xcwp=900) BASOPHILS RELATIVE PERCENT (BEAKER) (test 0 % kwsl=544) NEUTROPHILS ABSOLUTE COUNT (BEAKER) (test 7.95 K/ L 1.56-6.13 wiya=497) LYMPHOCYTES ABSOLUTE COUNT (BEAKER) (test 1.10 K/ L 1.18-3.74 vruu=026) MONOCYTES ABSOLUTE COUNT (BEAKER) (test 0.89 K/ L 0.24-0.36 copa=312) EOSINOPHILS ABSOLUTE COUNT (BEAKER) (test 0.36 K/ L 0.04-0.36 abmo=506) BASOPHILS ABSOLUTE COUNT (BEAKER) (test 0.03 K/ L 0.01-0.08 vpek=339) IMMATURE GRANULOCYTES-RELATIVE PERCENT (BEAKER) 1 % 0-1 (test jbdv=1038) POCT-GLUCOSE [id number] 03:05:00 Test Item Value Reference Range Comments POC-GLUCOSE METER (BEAKER) 192 mg/dL 70-110 TESTED AT [address] (test hxvd=2547) [place] [address] POCT-GLUCOSE [id number] 03:05:00 Test Item Value Reference Range Comments POC-GLUCOSE METER (BEAKER) 165 mg/dL 70-110 TESTED AT [address] (test fwek=7914) [place] [address] CT, CHEST, WITHOUT [id number] 18:13:00FINAL REPORT INDICATION: Shortness of breath and [...] Verified Date/Time: 05/10/2018 18: 13:02 Reading Location: [facility] B1 C013Y CT Body Reading Room POCT-GLUCOSE [id number] 16:48:00 Test Item Value Reference Range Comments POC-GLUCOSE METER (BEAKER) 157 mg/dL 70-110 TESTED AT [address] (test yhje=0876) [facility] [address] CT, BRAIN, WITHOUT [id number] 15:32:00FINAL REPORT CT head without contrast 05/10/2018 [...] Brennan Verified Date/Time: 05/10/2018 15:32:37 Reading Location: [facility] Radiology Reading Room WOUND CULTURE + GRAM [id number] 13:40:00 Test Item Value Reference Range Comments CULTURE (BEAKER) (test METHICILLIN RESISTANT 1+ Methicillin rjer=6978) STAPHYLOCOCCUS AUREUS resistant Staphylococcus aureus Clindamycin (test code=10) Erythromycin (test code=4) Linezolid (test code=40) Nitrofurantoin (test code=23) Oxacillin (test code=14) Rifampin (test code=43) Tetracycline (test code=2) Trimethoprim + Sulfamethoxazole (test code=47) Vancomycin (test code=13) GRAM STAIN RESULT <1+ WBCs (BEAKER) (test hmjg=5365) GRAM STAIN RESULT <1+ gram variable (BEAKER) (test coccobacilli vvnz=204445) 3+ Skin floraC-REACTIVE [id number] 12:36:00 Test Item Value Reference Range Comments C-REACTIVE PROTEIN (BEAKER) (test wdow=474) 2.43 mg/dL 0.00-0.50 BLOOD GAS, [id number] 12:09:00 Test Item Value Reference Range Comments PH ARTERIAL (BEAKER) (test asnx=678) 7.47 7.35-7.45 PCO2 ARTERIAL (BEAKER) (test yjgi=656) 39 mmHg 35-45 PO2 ARTERIAL (BEAKER) (test ibpa=982) 87 mmHg 80-90 O2 SATURATION ARTERIAL (BEAKER) (test kcdv=782) 97.2 % 96.0-97.0 HCO3 ARTERIAL (BEAKER) (test chgz=641) 27 mmol/L 21-29 BASE EXCESS ARTERIAL (BEAKER) (test qvxf=276) 3.5 mmol/L -2.0-3.0 PATIENT TEMPERATURE (BEAKER) (test crqu=7629) 36.9 C FIO2 (BEAKER) (test ybht=0933) 60.0 % POCT-GLUCOSE [id number] 10:31:00 Test Item Value Reference Range Comments POC-GLUCOSE METER (BEAKER) 141 mg/dL 70-110 TESTED AT [facility] [address] [facility] (test yyvp=5511) [facility] [address] RAD, CHEST, 1 VIEW, NON [id number] 09:55:00Reason for exam:-> hypoxicShould this be performed [...] MDReport Verified Date/Time: 05/10/2018 09:55:25 Reading Location: [facility] Radiology Reading Room POCT-GLUCOSE [id number] 06:38:00 Test Item Value Reference Range Comments POC-GLUCOSE METER (BEAKER) 143 mg/dL 70-110 TESTED AT [address] (test qtcc=8145) [place] [id number] POCT-GLUCOSE [id number] 05:39:00 Test Item Value Reference Range Comments POC-GLUCOSE METER (BEAKER) 132 mg/dL 70-110 TESTED AT [address] (test yght=0383) [place] [id number] COMPREHENSIVE METABOLIC [id number] 05:02:00 Test Item Value Reference Range Comments TOTAL PROTEIN (BEAKER) 6.2 gm/dL 6.0-8.3 (test opyq=814) ALBUMIN (BEAKER) (test 2.8 g/dL 3.5-5.0 uqqg=2796) ALKALINE PHOSPHATASE 213 U/L 40-150 (BEAKER) (test okux=185) BILIRUBIN TOTAL (BEAKER) 0.4 mg/dL 0.2-1.2 (test olid=083) SODIUM (BEAKER) (test 137 meq/L 136-145 spbk=748) POTASSIUM (BEAKER) (test 3.6 meq/L 3.5-5.1 yesx=001) CHLORIDE (BEAKER) (test 102 meq/L 98-107 alse=304) CO2 (BEAKER) (test 27 meq/L 22-29 izql=887) BLOOD UREA NITROGEN 19 mg/dL 7-21 (BEAKER) (test pull=226) CREATININE (BEAKER) (test 2.05 mg/dL 0.57-1.25 bdxb=566) GLUCOSE RANDOM (BEAKER) 116 mg/dL 70-105 (test kbmg=869) CALCIUM (BEAKER) (test 8.2 mg/dL 8.4-10.2 utak=697) AST (SGOT) (BEAKER) (test 22 U/L 5-34 oayn=844) ALT (SGPT) (BEAKER) (test 27 U/L 6-55 imcr=861) EGFR (BEAKER) (test 24 mL/min/1.73 sq m ESTIMATED GFR IS NOT klit=0096) ACCURATE CREATININE CLEARANCE IN PREDICTING GLOMERULAR FILTRATION RATE. ESTIMATED GFR IS NOT APPLICABLE FOR DIALYSIS PATIENTS. [id number] 05:02:00 Test Item Value Reference Range Comments PROTIME (BEAKER) (test cmbc=949) 14.4 seconds 11.7-14.7 INR (BEAKER) (test hwtc=138) 1.1 <=5.9 PARTIAL THROMBOPLASTIN TIME (BEAKER) (test 28.1 seconds 22.5-36.0 myld=357) RECOMMENDED COUMADIN/WARFARIN INR THERAPY RANGESSTANDARD DOSE: 2.0 - 3.0 Includes: PROPHYLAXIS forvenous thrombosis, systemic embolization; TREATMENT for venous thrombosis and/or pulmonary embolus.HIGH RISK: Target INR is 2.5-3.5 for patients with mechanical heart valves.[id number] 04:58:00 Test Item Value Reference Range Comments MAGNESIUM (BEAKER) (test jhun=484) 1.7 mg/dL 1.6-2.6 CBC W/PLT COUNT & AUTO [id number] 04:47:00 Test Item Value Reference Range Comments WHITE BLOOD CELL COUNT (BEAKER) (test euve=618) 9.1 K/ L 3.5-10.5 RED BLOOD CELL COUNT (BEAKER) (test dttz=794) 2.71 M/ L 3.93-5.22 HEMOGLOBIN (BEAKER) (test fhrk=968) 7.8 GM/DL 11.2-15.7 HEMATOCRIT (BEAKER) (test aipv=631) 25.0 % 34.1-44.9 MEAN CORPUSCULAR VOLUME (BEAKER) (test uiby=974) 92.3 fL 79.4-94.8 MEAN CORPUSCULAR HEMOGLOBIN (BEAKER) (test 28.8 pg 25.6-32.2 cjgt=820) MEAN CORPUSCULAR HEMOGLOBIN CONC (BEAKER) (test 31.2 GM/DL 32.2-35.5 loqt=737) RED CELL DISTRIBUTION WIDTH (BEAKER) (test 16.2 % 11.7-14.4 bwje=765) PLATELET COUNT (BEAKER) (test evme=994) 118 K/CU MM 150-450 MEAN PLATELET VOLUME (BEAKER) (test btsx=547) 12.4 fL 9.4-12.3 NUCLEATED RED BLOOD CELLS (BEAKER) (test 0 /100 WBC 0-0 ucqy=112) NEUTROPHILS RELATIVE PERCENT (BEAKER) (test 72 % oqlj=484) LYMPHOCYTES RELATIVE PERCENT (BEAKER) (test 13 % gulx=503) MONOCYTES RELATIVE PERCENT (BEAKER) (test 9 % dmmi=774) EOSINOPHILS RELATIVE PERCENT (BEAKER) (test 5 % fmfu=770) BASOPHILS RELATIVE PERCENT (BEAKER) (test 0 % oxga=259) NEUTROPHILS ABSOLUTE COUNT (BEAKER) (test 6.49 K/ L 1.56-6.13 enwo=256) LYMPHOCYTES ABSOLUTE COUNT (BEAKER) (test 1.22 K/ L 1.18-3.74 ceyk=375) MONOCYTES ABSOLUTE COUNT (BEAKER) (test 0.79 K/ L 0.24-0.36 pzhh=230) EOSINOPHILS ABSOLUTE COUNT (BEAKER) (test 0.43 K/ L 0.04-0.36 iawx=700) BASOPHILS ABSOLUTE COUNT (BEAKER) (test 0.03 K/ L 0.01-0.08 akbe=373) IMMATURE GRANULOCYTES-RELATIVE PERCENT (BEAKER) 1 % 0-1 (test nosm=2346) POCT-GLUCOSE [id number] 00:13:00 Test Item Value Reference Range Comments POC-GLUCOSE METER (BEAKER) 160 mg/dL 70-110 TESTED AT [facility] [address] [facility] (test tgnj=0468) [facility] [address] BODY FLUID CELL COUNT WITH [id number] 21:03:00 Test Item Value Reference Range Comments APPEARANCE FLUID (BEAKER) (test vvbk=720) Slightly Hazy Clear COLOR FLUID (BEAKER) (test kchu=384) Straw Colorless, Straw RBC FLUID (BEAKER) (test ipge=554) 224 /cu mm <=1 ADJUSTED WBC FLUID (BEAKER) (test avki=9763) 6 /cu mm <=5 LINING CELLS (BEAKER) (test iiqh=6801) 0 /cu mm <=1 NEUTROPHILS FLUID (BEAKER) (test xjhz=4642) 17 % LYMPHS FLUID (BEAKER) (test feru=853) 83 % MONO/MACROPHAGE FLUID (BEAKER) (test 0 % ccqr=923) EOSINOPHILS FLUID (BEAKER) (test pvba=955) 0 % BASO FLUID (BEAKER) (test ksqx=056) 0 % CONTAINER BODY FLUID (BEAKER) (test EDTA Tube lbvf=2706) LACTATE DEHYDROGENASE (LDH), BODY [id number] 17:59:00 Test Item Value Reference Range Comments LACTATE DEHYDROGENASE FLUID (BEAKER) < U/L Light's criteria identifies (test xdgd=238) effusions if one or more are pre Absence of reference range indicates that normals have not been defined.Assay performance has not been validated for this type of specimen.PROTEIN, BODY [id number] 17:59:00 Test Item Value Reference Range Comments PROTEIN FLUID (BEAKER) (test 2.0 g/dL Light's criteria identifies laip=801) effusions if one or more are pre Absence of reference range indicates that normals have not been defined.Assay performance has not been validated for this type of specimen.GLUCOSE, BODY [id number] 17:59:00 Test Item Value Reference Range Comments GLUCOSE, BODY FLUID (BEAKER) (test ykqf=6536) 131 mg/dL 70-110 Absence of reference range indicates that normals have not been defined.Assay performance has not been validated for this type of specimen.POCT-GLUCOSE [id number] 17:57:00 Test Item Value Reference Range Comments POC-GLUCOSE METER (BEAKER) 143 mg/dL 70-110 TESTED AT [facility] [address] [facility] (test dyqg=8918) [place] [address] PROTEIN, [id number] 17:53:00 Test Item Value Reference Range Comments TOTAL PROTEIN (BEAKER) (test qsdu=662) 6.1 gm/dL 6.0-8.3 [id number] 17:53:00 Test Item Value Reference Range Comments GLUCOSE RANDOM (BEAKER) (test kohn=359) 144 mg/dL 70-105 LACTATE DEHYDROGENASE (LDH)2018-05-09 17:53:00 Test Item Value Reference Range Comments LACTATE DEHYDROGENASE (BEAKER) (test tpcy=704) 244 U/L 125-220 PH, BODY [id number] 17:48:00 Test Item Value Reference Range Comments PH, BODY FLUID (BEAKER) (test kzpd=2295) 7.84 RAD, CHEST, 1 VIEW, NON [id number] 17:13:00Reason for exam:->follow up Right thoracentesis Should [...] [place] Verified Date/Time: 05/09/2018 17:13:12 Reading Location: [address] Consult Reading Room POCT- GLUCOSE [id number] 12:26:00 Test Item Value Reference Range Comments POC-GLUCOSE METER (BEAKER) 141 mg/dL 70-110 TESTED AT [address] (test rhlz=3434) [facility] [address] [id number] 10:26:00 Test Item Value Reference Range Comments PROCALCITONIN (BEAKER) (test gvko=2514) 0.12 ng/mL <0.05 SEPSIS RISK (ng/mL)Low: 0.05-0.50Intermediate: 0.51-2.00High: & gt;=2.01BLOOD GAS, [id number] 09:14:00 Test Item Value Reference Range Comments PH ARTERIAL (BEAKER) (test rmri=765) 7.42 7.35-7.45 PCO2 ARTERIAL (BEAKER) (test rttw=248) 34 mmHg 35-45 PO2 ARTERIAL (BEAKER) (test amvh=882) 88 mmHg 80-90 O2 SATURATION ARTERIAL (BEAKER) (test sfeb=135) 97.0 % 96.0-97.0 HCO3 ARTERIAL (BEAKER) (test eeqf=283) 22 mmol/L 21-29 BASE EXCESS ARTERIAL (BEAKER) (test mipf=978) -2.7 mmol/L -2.0-3.0 PATIENT TEMPERATURE (BEAKER) (test lnxd=3363) 36.7 C FIO2 (BEAKER) (test kljt=9887) 80.0 % B-TYPE NATRIURETIC FACTOR (BNP)2018-05-09 09:08:00 Test Item Value Reference Range Comments B-TYPE NATRIURETIC PEPTIDE (BEAKER) (test 919 pg/mL 0-100 vprh=471) CBC W/PLT COUNT & AUTO [id number] 08:47:00 Test Item Value Reference Range Comments WHITE BLOOD CELL COUNT (BEAKER) (test amyd=602) 9.9 K/ L 3.5-10.5 RED BLOOD CELL COUNT (BEAKER) (test jwzr=565) 2.58 M/ L 3.93-5.22 HEMOGLOBIN (BEAKER) (test scpt=426) 7.5 GM/DL 11.2-15.7 HEMATOCRIT (BEAKER) (test yzyp=709) 24.2 % 34.1-44.9 MEAN CORPUSCULAR VOLUME (BEAKER) (test njrz=839) 93.8 fL 79.4-94.8 MEAN CORPUSCULAR HEMOGLOBIN (BEAKER) (test 29.1 pg 25.6-32.2 yarx=835) MEAN CORPUSCULAR HEMOGLOBIN CONC (BEAKER) (test 31.0 GM/DL 32.2-35.5 lbay=392) RED CELL DISTRIBUTION WIDTH (BEAKER) (test 16.4 % 11.7-14.4 cwwa=590) PLATELET COUNT (BEAKER) (test qfde=948) 130 K/CU MM 150-450 MEAN PLATELET VOLUME (BEAKER) (test vqbk=857) 12.2 fL 9.4-12.3 NUCLEATED RED BLOOD CELLS (BEAKER) (test 0 /100 WBC 0-0 rbnj=202) NEUTROPHILS RELATIVE PERCENT (BEAKER) (test 72 % ltun=941) LYMPHOCYTES RELATIVE PERCENT (BEAKER) (test 13 % ctmc=288) MONOCYTES RELATIVE PERCENT (BEAKER) (test 9 % dalq=612) EOSINOPHILS RELATIVE PERCENT (BEAKER) (test 4 % fpmx=901) BASOPHILS RELATIVE PERCENT (BEAKER) (test 0 % opfa=608) NEUTROPHILS ABSOLUTE COUNT (BEAKER) (test 7.12 K/ L 1.56-6.13 trep=910) LYMPHOCYTES ABSOLUTE COUNT (BEAKER) (test 1.24 K/ L 1.18-3.74 iqhn=055) MONOCYTES ABSOLUTE COUNT (BEAKER) (test 0.90 K/ L 0.24-0.36 yuoo=192) EOSINOPHILS ABSOLUTE COUNT (BEAKER) (test 0.41 K/ L 0.04-0.36 ckwi=287) BASOPHILS ABSOLUTE COUNT (BEAKER) (test 0.04 K/ L 0.01-0.08 ddek=489) IMMATURE GRANULOCYTES-RELATIVE PERCENT (BEAKER) 2 % 0-1 (test ixrc=7783) POCT-GLUCOSE [id number] 07:18:00 Test Item Value Reference Range Comments POC-GLUCOSE METER (BEAKER) 244 mg/dL 70-110 TESTED AT [address] (test utxj=5493) [facility] [address] CALCIUM, [id number] 04:58:00 Test Item Value Reference Range Comments CALCIUM IONIZED (BEAKER) (test tosw=895) 1.08 mmol/L 1.12-1.27 PH, BLOOD (BEAKER) (test lrpk=7072) 7.38 COMPREHENSIVE METABOLIC [id number] 04:24:00 Test Item Value Reference Range Comments TOTAL PROTEIN (BEAKER) 5.7 gm/dL 6.0-8.3 (test lqqr=719) ALBUMIN (BEAKER) (test 2.6 g/dL 3.5-5.0 fwnd=4893) ALKALINE PHOSPHATASE 210 U/L 40-150 (BEAKER) (test libp=209) BILIRUBIN TOTAL (BEAKER) 0.3 mg/dL 0.2-1.2 (test anay=114) SODIUM (BEAKER) (test 137 meq/L 136-145 oxev=610) POTASSIUM (BEAKER) (test 4.0 meq/L 3.5-5.1 yaxu=922) CHLORIDE (BEAKER) (test 103 meq/L 98-107 qjto=636) CO2 (BEAKER) (test 22 meq/L 22-29 ynut=477) BLOOD UREA NITROGEN 34 mg/dL 7-21 (BEAKER) (test pyfh=247) CREATININE (BEAKER) (test 3.34 mg/dL 0.57-1.25 jcep=067) GLUCOSE RANDOM (BEAKER) 244 mg/dL 70-105 (test dtmo=659) CALCIUM (BEAKER) (test 8.0 mg/dL 8.4-10.2 gxei=918) AST (SGOT) (BEAKER) (test 24 U/L 5-34 tisn=403) ALT (SGPT) (BEAKER) (test 30 U/L 6-55 vtdw=831) EGFR (BEAKER) (test 14 mL/min/1.73 sq m ESTIMATED GFR IS NOT lbot=8155) ACCURATE CREATININE CLEARANCE IN PREDICTING GLOMERULAR FILTRATION RATE. ESTIMATED GFR IS NOT APPLICABLE FOR DIALYSIS PATIENTS. [id number] 04:23:00 Test Item Value Reference Range Comments PHOSPHORUS (BEAKER) (test edpt=222) 4.1 mg/dL 2.3-4.7 [id number] 04:23:00 Test Item Value Reference Range Comments MAGNESIUM (BEAKER) (test shxo=164) 1.7 mg/dL 1.6-2.6 [id number] 04:17:00 Test Item Value Reference Range Comments PARTIAL THROMBOPLASTIN TIME (BEAKER) (test 22.4 seconds 22.5-36.0 expy=338) PROTHROMBIN [id number] 04:16:00 Test Item Value Reference Range Comments PROTIME (BEAKER) (test jqnj=193) 14.3 seconds 11.7-14.7 INR (BEAKER) (test keix=119) 1.1 <=5.9 RECOMMENDED COUMADIN/WARFARIN INR THERAPY RANGESSTANDARD DOSE: 2.0 - 3.0 Includes: PROPHYLAXIS forvenous thrombosis, systemic embolization; TREATMENT for venous thrombosis and/or pulmonary embolus.HIGH RISK: Target INR is 2.5-3.5 for patients with mechanical heart valves.RAD, CHEST, 1 VIEW, NON [id number] 03:26:00Reason for exam:->pleural effusionShould this be performed at the bedside?->YesFINAL REPORT CLINICAL INDICATION: Pleural effusion Comparison: 05/08/2018 The cardiomediastinal contours are stable. Central pulmonary vascular congestion and bilateral parenchymal and pleural opacities are unchanged. There is no pneumothorax. A right PICC line is stable. Signed:Kp Engle MDReport Verified Date/Time: 05/09/2018 03:26:29 Reading Location: [address] Reading Room POCT-GLUCOSE [id number] 23:03:00 Test Item Value Reference Range Comments POC-GLUCOSE METER (BEAKER) 181 mg/dL 70-110 TESTED AT [address] (test wtjw=9716) [place] [id number] POCT-GLUCOSE [id number] 20:41:00 Test Item Value Reference Range Comments POC-GLUCOSE METER (BEAKER) 201 mg/dL 70-110 TESTED AT [address] (test iqrk=2179) [place] [id number] POCT-GLUCOSE [id number] 18:47:00 Test Item Value Reference Range Comments POC-GLUCOSE METER (BEAKER) 242 mg/dL 70-110 TESTED AT [address] (test elrk=2451) [facility] [address] POCT-GLUCOSE [id number] 11:49:00 Test Item Value Reference Range Comments POC-GLUCOSE METER (BEAKER) 178 mg/dL 70-110 TESTED AT [address] (test voqy=5254) [facility] [address] BLOOD GAS, [id number] 11:27:00 Test Item Value Reference Range Comments PH VENOUS (BEAKER) (test kwgh=071) 7.43 7.32-7.42 PCO2 VENOUS (BEAKER) (test vnaq=073) 36 mmHg 41-51 PO2 VENOUS (BEAKER) (test mpem=081) 65 mmHg 25-40 O2 SATURATION VENOUS (BEAKER) (test xpih=585) 93.6 % 40.0-70.0 HCO3 VENOUS (BEAKER) (test jzbw=249) 24 mmol/L 21-29 BASE EXCESS VENOUS (BEAKER) (test baxc=323) -0.5 mmol/L -2.0-3.0 PATIENT TEMPERATURE (BEAKER) (test rhxg=2064) 37.0 C FIO2 (BEAKER) (test hiqn=4042) 21.0 % CBC W/PLT COUNT & AUTO [id number] 07:40:00 Test Item Value Reference Range Comments WHITE BLOOD CELL COUNT (BEAKER) (test tvef=224) 9.2 K/ L 3.5-10.5 RED BLOOD CELL COUNT (BEAKER) (test plmm=396) 2.65 M/ L 3.93-5.22 HEMOGLOBIN (BEAKER) (test vsbs=484) 7.7 GM/DL 11.2-15.7 HEMATOCRIT (BEAKER) (test ncow=765) 24.4 % 34.1-44.9 MEAN CORPUSCULAR VOLUME (BEAKER) (test ynpt=213) 92.1 fL 79.4-94.8 MEAN CORPUSCULAR HEMOGLOBIN (BEAKER) (test 29.1 pg 25.6-32.2 rezr=289) MEAN CORPUSCULAR HEMOGLOBIN CONC (BEAKER) (test 31.6 GM/DL 32.2-35.5 cmun=360) RED CELL DISTRIBUTION WIDTH (BEAKER) (test 16.4 % 11.7-14.4 uzha=081) PLATELET COUNT (BEAKER) (test hxrd=378) 135 K/CU MM 150-450 MEAN PLATELET VOLUME (BEAKER) (test hbry=084) 12.9 fL 9.4-12.3 NUCLEATED RED BLOOD CELLS (BEAKER) (test 0 /100 WBC 0-0 inhw=239) NEUTROPHILS RELATIVE PERCENT (BEAKER) (test 72 % pnft=979) LYMPHOCYTES RELATIVE PERCENT (BEAKER) (test 13 % gkds=470) MONOCYTES RELATIVE PERCENT (BEAKER) (test 10 % njln=699) EOSINOPHILS RELATIVE PERCENT (BEAKER) (test 4 % xipq=361) BASOPHILS RELATIVE PERCENT (BEAKER) (test 0 % tbsz=873) NEUTROPHILS ABSOLUTE COUNT (BEAKER) (test 6.61 K/ L 1.56-6.13 kngb=449) LYMPHOCYTES ABSOLUTE COUNT (BEAKER) (test 1.18 K/ L 1.18-3.74 zjkf=840) MONOCYTES ABSOLUTE COUNT (BEAKER) (test 0.90 K/ L 0.24-0.36 vyip=642) EOSINOPHILS ABSOLUTE COUNT (BEAKER) (test 0.34 K/ L 0.04-0.36 bdky=705) BASOPHILS ABSOLUTE COUNT (BEAKER) (test 0.03 K/ L 0.01-0.08 xbcv=369) IMMATURE GRANULOCYTES-RELATIVE PERCENT (BEAKER) 1 % 0-1 (test nnsw=8899) RAD, CHEST, 1 VIEW, NON [id number] 05:40:00Reason for exam:->pleural effusionShould this be performed at the bedside?->YesFINAL REPORT RAD, CHEST, 1 VIEW, NON DEPT INDICATION: pleural effusion COMPARISON: Prior day's exam FINDINGS: Portable frontal view of the chest. IMPRESSION: Support Lines: Stable. Lungs and pleura: Unchanged airspace and pleural opacities. No pneumothorax.Heart and mediastinum: Stable contours. Additional findings: None. Signed: Marina Hale Verified Date/ Time: 05/08/2018 05:40:53 Reading Location: [address] Reading Room CBC W/PLT COUNT & AUTO [id number] 04:50:00 Test Item Value Reference Range Comments WHITE BLOOD CELL COUNT (BEAKER) (test wdng=087) 9.9 K/ L 3.5-10.5 RED BLOOD CELL COUNT (BEAKER) (test amix=406) 2.31 M/ L 3.93-5.22 HEMOGLOBIN (BEAKER) (test zyam=681) 6.7 GM/DL 11.2-15.7 HEMATOCRIT (BEAKER) (test oukh=506) 21.5 % 34.1-44.9 MEAN CORPUSCULAR VOLUME (BEAKER) (test vydk=516) 93.1 fL 79.4-94.8 MEAN CORPUSCULAR HEMOGLOBIN (BEAKER) (test 29.0 pg 25.6-32.2 gfga=841) MEAN CORPUSCULAR HEMOGLOBIN CONC (BEAKER) (test 31.2 GM/DL 32.2-35.5 sxub=602) RED CELL DISTRIBUTION WIDTH (BEAKER) (test 16.3 % 11.7-14.4 gbbv=192) PLATELET COUNT (BEAKER) (test ogio=019) 128 K/CU MM 150-450 MEAN PLATELET VOLUME (BEAKER) (test nlwz=756) 12.8 fL 9.4-12.3 NUCLEATED RED BLOOD CELLS (BEAKER) (test 0 /100 WBC 0-0 rtfb=396) NEUTROPHILS RELATIVE PERCENT (BEAKER) (test 74 % vbnt=851) LYMPHOCYTES RELATIVE PERCENT (BEAKER) (test 12 % ekpy=318) MONOCYTES RELATIVE PERCENT (BEAKER) (test 9 % nzpm=651) EOSINOPHILS RELATIVE PERCENT (BEAKER) (test 3 % kflv=030) BASOPHILS RELATIVE PERCENT (BEAKER) (test 0 % biaq=285) NEUTROPHILS ABSOLUTE COUNT (BEAKER) (test 7.33 K/ L 1.56-6.13 oeov=457) LYMPHOCYTES ABSOLUTE COUNT (BEAKER) (test 1.18 K/ L 1.18-3.74 alrn=450) MONOCYTES ABSOLUTE COUNT (BEAKER) (test 0.89 K/ L 0.24-0.36 hnvi=508) EOSINOPHILS ABSOLUTE COUNT (BEAKER) (test 0.32 K/ L 0.04-0.36 vhvx=773) BASOPHILS ABSOLUTE COUNT (BEAKER) (test 0.04 K/ L 0.01-0.08 cruh=549) IMMATURE GRANULOCYTES-RELATIVE PERCENT (BEAKER) 1 % 0-1 (test yzct=2859) CALCIUM, [id number] 04:49:00 Test Item Value Reference Range Comments CALCIUM IONIZED (BEAKER) (test kjyc=743) 1.10 mmol/L 1.12-1.27 PH, BLOOD (BEAKER) (test lnki=3289) 7.40 COMPREHENSIVE METABOLIC [id number] 04:41:00 Test Item Value Reference Range Comments TOTAL PROTEIN (BEAKER) 6.0 gm/dL 6.0-8.3 (test vaok=255) ALBUMIN (BEAKER) (test 2.7 g/dL 3.5-5.0 mijj=4999) ALKALINE PHOSPHATASE 195 U/L 40-150 (BEAKER) (test ojqz=875) BILIRUBIN TOTAL (BEAKER) 0.4 mg/dL 0.2-1.2 (test qzev=345) SODIUM (BEAKER) (test 135 meq/L 136-145 dtux=517) POTASSIUM (BEAKER) (test 3.8 meq/L 3.5-5.1 ofne=540) CHLORIDE (BEAKER) (test 104 meq/L 98-107 okhv=869) CO2 (BEAKER) (test 24 meq/L 22-29 lpqo=534) BLOOD UREA NITROGEN 25 mg/dL 7-21 (BEAKER) (test rntc=610) CREATININE (BEAKER) (test 2.64 mg/dL 0.57-1.25 zbic=783) GLUCOSE RANDOM (BEAKER) 140 mg/dL 70-105 (test rntv=182) CALCIUM (BEAKER) (test 7.8 mg/dL 8.4-10.2 coiu=302) AST (SGOT) (BEAKER) (test 13 U/L 5-34 kvoj=509) ALT (SGPT) (BEAKER) (test 20 U/L 6-55 wrnf=799) EGFR (BEAKER) (test 18 mL/min/1.73 sq m ESTIMATED GFR IS NOT edxq=1409) ACCURATE CREATININE CLEARANCE IN PREDICTING GLOMERULAR FILTRATION RATE. ESTIMATED GFR IS NOT APPLICABLE FOR DIALYSIS PATIENTS. [id number] 04:38:00 Test Item Value Reference Range Comments PHOSPHORUS (BEAKER) (test dvbg=260) 3.4 mg/dL 2.3-4.7 [id number] 04:38:00 Test Item Value Reference Range Comments MAGNESIUM (BEAKER) (test ohyz=561) 1.8 mg/dL 1.6-2.6 POCT-GLUCOSE [id number] 21:36:00 Test Item Value Reference Range Comments POC-GLUCOSE METER (BEAKER) 148 mg/dL 70-110 TESTED AT [address] (test adwn=5010) [facility] [address] POCT-GLUCOSE [id number] 17:22:00 Test Item Value Reference Range Comments POC-GLUCOSE METER (BEAKER) 214 mg/dL 70-110 TESTED AT [address] (test eupd=1611) [facility] [address] POCT-GLUCOSE [id number] 11:58:00 Test Item Value Reference Range Comments POC-GLUCOSE METER (BEAKER) 96 mg/dL 70-110 TESTED AT [address] (test olqk=5658) [facility] [address] POCT-GLUCOSE [id number] 07:07:00 Test Item Value Reference Range Comments POC-GLUCOSE METER (BEAKER) 98 mg/dL 70-110 TESTED AT [address] (test eeol=6254) [facility] [address] RAD, CHEST, 1 VIEW, NON [id number] 06:03:00Reason for exam:->pleural effusionShould this be performed [...] Hale Verified Date/Time: 2018 06:03:05 Reading Location: [address] Transitional Reading Room COMPREHENSIVE METABOLIC [id number] 05:10:00 Test Item Value Reference Range Comments TOTAL PROTEIN (BEAKER) 6.0 gm/dL 6.0-8.3 (test meof=199) ALBUMIN (BEAKER) (test 2.7 g/dL 3.5-5.0 tpkk=6642) ALKALINE PHOSPHATASE 200 U/L 40-150 (BEAKER) (test fxec=683) BILIRUBIN TOTAL (BEAKER) 0.4 mg/dL 0.2-1.2 (test mrri=473) SODIUM (BEAKER) (test 136 meq/L 136-145 otbs=556) POTASSIUM (BEAKER) (test 4.1 meq/L 3.5-5.1 aewe=282) CHLORIDE (BEAKER) (test 104 meq/L 98-107 ufsz=935) CO2 (BEAKER) (test 21 meq/L 22-29 zvsw=070) BLOOD UREA NITROGEN 51 mg/dL 7-21 (BEAKER) (test bymi=661) CREATININE (BEAKER) (test 4.02 mg/dL 0.57-1.25 tiwt=559) GLUCOSE RANDOM (BEAKER) 111 mg/dL 70-105 (test akvx=438) CALCIUM (BEAKER) (test 8.2 mg/dL 8.4-10.2 myta=120) AST (SGOT) (BEAKER) (test 14 U/L 5-34 jhfn=884) ALT (SGPT) (BEAKER) (test 23 U/L 6-55 hxkc=374) EGFR (BEAKER) (test 11 mL/min/1.73 sq m ESTIMATED GFR IS NOT eret=4833) ACCURATE CREATININE CLEARANCE IN PREDICTING GLOMERULAR FILTRATION RATE. ESTIMATED GFR IS NOT APPLICABLE FOR DIALYSIS PATIENTS. [id number] 05:06:00 Test Item Value Reference Range Comments MAGNESIUM (BEAKER) (test kuni=102) 1.9 mg/dL 1.6-2.6 CBC W/PLT COUNT & AUTO [id number] 05:02:00 Test Item Value Reference Range Comments WHITE BLOOD CELL COUNT (BEAKER) (test aqkz=393) 12.4 K/ L 3.5-10.5 RED BLOOD CELL COUNT (BEAKER) (test gdlq=531) 2.72 M/ L 3.93-5.22 HEMOGLOBIN (BEAKER) (test axoc=902) 7.8 GM/DL 11.2-15.7 HEMATOCRIT (BEAKER) (test sgfc=126) 25.1 % 34.1-44.9 MEAN CORPUSCULAR VOLUME (BEAKER) (test jwvc=143) 92.3 fL 79.4-94.8 MEAN CORPUSCULAR HEMOGLOBIN (BEAKER) (test 28.7 pg 25.6-32.2 dudu=390) MEAN CORPUSCULAR HEMOGLOBIN CONC (BEAKER) (test 31.1 GM/DL 32.2-35.5 kzja=442) RED CELL DISTRIBUTION WIDTH (BEAKER) (test 16.1 % 11.7-14.4 iogh=345) PLATELET COUNT (BEAKER) (test eaqt=859) 150 K/CU MM 150-450 MEAN PLATELET VOLUME (BEAKER) (test tpzg=022) 12.3 fL 9.4-12.3 NUCLEATED RED BLOOD CELLS (BEAKER) (test 0 /100 WBC 0-0 hvff=306) NEUTROPHILS RELATIVE PERCENT (BEAKER) (test 81 % cjdu=200) LYMPHOCYTES RELATIVE PERCENT (BEAKER) (test 8 % rvqg=725) MONOCYTES RELATIVE PERCENT (BEAKER) (test 8 % opun=534) EOSINOPHILS RELATIVE PERCENT (BEAKER) (test 2 % xqjc=832) BASOPHILS RELATIVE PERCENT (BEAKER) (test 0 % ltel=245) NEUTROPHILS ABSOLUTE COUNT (BEAKER) (test 10.02 K/ L 1.56-6.13 tvap=719) LYMPHOCYTES ABSOLUTE COUNT (BEAKER) (test 0.97 K/ L 1.18-3.74 wxcx=459) MONOCYTES ABSOLUTE COUNT (BEAKER) (test 0.93 K/ L 0.24-0.36 xaex=731) EOSINOPHILS ABSOLUTE COUNT (BEAKER) (test 0.28 K/ L 0.04-0.36 chek=272) BASOPHILS ABSOLUTE COUNT (BEAKER) (test 0.04 K/ L 0.01-0.08 wnnv=534) IMMATURE GRANULOCYTES-RELATIVE PERCENT (BEAKER) 2 % 0-1 (test fgvo=4223) POCT-GLUCOSE [id number] 17:48:00 Test Item Value Reference Range Comments POC-GLUCOSE METER (BEAKER) 183 mg/dL 70-110 TESTED AT [address] (test gmhg=4739) [facility] [address] POCT-GLUCOSE [id number] 12:24:00 Test Item Value Reference Range Comments POC-GLUCOSE METER (BEAKER) 73 mg/dL 70-110 TESTED AT [address] (test jiej=4231) [place] [id number] POCT-GLUCOSE [id number] 08:17:00 Test Item Value Reference Range Comments POC-GLUCOSE METER (BEAKER) 123 mg/dL 70-110 TESTED AT [address] (test pjdj=7079) [facility] [address] COMPREHENSIVE METABOLIC [id number] 05:38:00 Test Item Value Reference Range Comments TOTAL PROTEIN (BEAKER) 5.7 gm/dL 6.0-8.3 (test vmeq=842) ALBUMIN (BEAKER) (test 2.6 g/dL 3.5-5.0 ggri=5915) ALKALINE PHOSPHATASE 188 U/L 40-150 (BEAKER) (test ctmi=536) BILIRUBIN TOTAL (BEAKER) 0.4 mg/dL 0.2-1.2 (test akuz=238) SODIUM (BEAKER) (test 138 meq/L 136-145 uyvb=590) POTASSIUM (BEAKER) (test 4.0 meq/L 3.5-5.1 jjln=839) CHLORIDE (BEAKER) (test 106 meq/L 98-107 lwel=413) CO2 (BEAKER) (test 24 meq/L 22-29 cubw=239) BLOOD UREA NITROGEN 45 mg/dL 7-21 (BEAKER) (test khcb=537) CREATININE (BEAKER) (test 3.17 mg/dL 0.57-1.25 rcka=399) GLUCOSE RANDOM (BEAKER) 100 mg/dL 70-105 (test tyfg=412) CALCIUM (BEAKER) (test 8.1 mg/dL 8.4-10.2 ldlo=967) AST (SGOT) (BEAKER) (test 12 U/L 5-34 ijwy=584) ALT (SGPT) (BEAKER) (test 22 U/L 6-55 rglo=517) EGFR (BEAKER) (test 15 mL/min/1.73 sq m ESTIMATED GFR IS NOT uivl=8738) ACCURATE CREATININE CLEARANCE IN PREDICTING GLOMERULAR FILTRATION RATE. ESTIMATED GFR IS NOT APPLICABLE FOR DIALYSIS PATIENTS. [id number] 05:32:00 Test Item Value Reference Range Comments MAGNESIUM (BEAKER) (test vqan=003) 2.0 mg/dL 1.6-2.6 CBC W/PLT COUNT & AUTO [id number] 04:30:00 Test Item Value Reference Range Comments WHITE BLOOD CELL COUNT (BEAKER) (test owcl=400) 8.7 K/ L 3.5-10.5 RED BLOOD CELL COUNT (BEAKER) (test xpeb=144) 2.73 M/ L 3.93-5.22 HEMOGLOBIN (BEAKER) (test cnaq=729) 7.7 GM/DL 11.2-15.7 HEMATOCRIT (BEAKER) (test llww=253) 25.2 % 34.1-44.9 MEAN CORPUSCULAR VOLUME (BEAKER) (test pfcu=442) 92.3 fL 79.4-94.8 MEAN CORPUSCULAR HEMOGLOBIN (BEAKER) (test 28.2 pg 25.6-32.2 lcnm=681) MEAN CORPUSCULAR HEMOGLOBIN CONC (BEAKER) (test 30.6 GM/DL 32.2-35.5 bkyc=745) RED CELL DISTRIBUTION WIDTH (BEAKER) (test 16.3 % 11.7-14.4 pizc=470) PLATELET COUNT (BEAKER) (test lnnw=044) 129 K/CU MM 150-450 MEAN PLATELET VOLUME (BEAKER) (test fief=580) 11.8 fL 9.4-12.3 NUCLEATED RED BLOOD CELLS (BEAKER) (test 0 /100 WBC 0-0 qtox=277) NEUTROPHILS RELATIVE PERCENT (BEAKER) (test 74 % eemi=846) LYMPHOCYTES RELATIVE PERCENT (BEAKER) (test 13 % mpsb=401) MONOCYTES RELATIVE PERCENT (BEAKER) (test 10 % zwwi=389) EOSINOPHILS RELATIVE PERCENT (BEAKER) (test 2 % bqbm=223) BASOPHILS RELATIVE PERCENT (BEAKER) (test 0 % rpsi=483) NEUTROPHILS ABSOLUTE COUNT (BEAKER) (test 6.41 K/ L 1.56-6.13 edvp=712) LYMPHOCYTES ABSOLUTE COUNT (BEAKER) (test 1.14 K/ L 1.18-3.74 qecc=559) MONOCYTES ABSOLUTE COUNT (BEAKER) (test 0.83 K/ L 0.24-0.36 fdmg=646) EOSINOPHILS ABSOLUTE COUNT (BEAKER) (test 0.21 K/ L 0.04-0.36 hycc=475) BASOPHILS ABSOLUTE COUNT (BEAKER) (test 0.02 K/ L 0.01-0.08 gils=081) IMMATURE GRANULOCYTES-RELATIVE PERCENT (BEAKER) 1 % 0-1 (test rmts=0195) POCT-GLUCOSE [id number] 20:43:00 Test Item Value Reference Range Comments POC-GLUCOSE METER (BEAKER) 191 mg/dL 70-110 TESTED AT [address] (test zjjl=7557) [place] [address] POCT-GLUCOSE [id number] 18:07:00 Test Item Value Reference Range Comments POC-GLUCOSE METER (BEAKER) 270 mg/dL 70-110 TESTED AT [address] (test rohu=8647) [place] [address] POCT-GLUCOSE [id number] 10:27:00 Test Item Value Reference Range Comments POC-GLUCOSE METER (BEAKER) 137 mg/dL 70-110 TESTED AT [address] (test pwab=3057) [place] [address] URINE [id number] 08:10:00 Test Item Value Reference Range Comments CULTURE (BEAKER) (test >100,000 col/mL Madie ruzi=2291) albicans GRAM STAIN RESULT (BEAKER) 3+ WBCs (test izlo=3350) GRAM STAIN RESULT (BEAKER) 2+ yeast (test boin=52125) RAD, CHEST, 1 VIEW, NON [id number] 07:05:00Reason for exam:->dyspnea, pulm edemaShould this be [...] MDReport Verified Date/Time: 05/05/2018 07:05:00 Reading Location: [place] [id number] Ortho Consult Reading Room COMPREHENSIVE METABOLIC [id number] 05: 31:00 Test Item Value Reference Range Comments TOTAL PROTEIN (BEAKER) 5.7 gm/dL 6.0-8.3 (test hatp=598) ALBUMIN (BEAKER) (test 2.6 g/dL 3.5-5.0 xlpz=7029) ALKALINE PHOSPHATASE 213 U/L 40-150 (BEAKER) (test ffbu=333) BILIRUBIN TOTAL (BEAKER) 0.5 mg/dL 0.2-1.2 (test lxmv=323) SODIUM (BEAKER) (test 136 meq/L 136-145 dijn=988) POTASSIUM (BEAKER) (test 4.0 meq/L 3.5-5.1 nocw=419) CHLORIDE (BEAKER) (test 103 meq/L 98-107 yjsp=193) CO2 (BEAKER) (test 24 meq/L 22-29 zkng=592) BLOOD UREA NITROGEN 63 mg/dL 7-21 (BEAKER) (test ajrj=089) CREATININE (BEAKER) (test 3.48 mg/dL 0.57-1.25 pyjp=302) GLUCOSE RANDOM (BEAKER) 156 mg/dL 70-105 (test ttwc=880) CALCIUM (BEAKER) (test 8.3 mg/dL 8.4-10.2 bvxa=202) AST (SGOT) (BEAKER) (test 21 U/L 5-34 mhes=460) ALT (SGPT) (BEAKER) (test 30 U/L 6-55 zrax=395) EGFR (BEAKER) (test 13 mL/min/1.73 sq m ESTIMATED GFR IS NOT rzmn=1816) ACCURATE CREATININE CLEARANCE IN PREDICTING GLOMERULAR FILTRATION RATE. ESTIMATED GFR IS NOT APPLICABLE FOR DIALYSIS PATIENTS. [id number] 05:20:00 Test Item Value Reference Range Comments MAGNESIUM (BEAKER) (test gbcc=387) 1.5 mg/dL 1.6-2.6 [id number] 05:19:00 Test Item Value Reference Range Comments PHOSPHORUS (BEAKER) (test hmit=199) 4.8 mg/dL 2.3-4.7 CBC W/PLT COUNT & AUTO [id number] 04:29:00 Test Item Value Reference Range Comments WHITE BLOOD CELL COUNT (BEAKER) (test trzr=617) 10.7 K/ L 3.5-10.5 RED BLOOD CELL COUNT (BEAKER) (test mbsz=280) 2.90 M/ L 3.93-5.22 HEMOGLOBIN (BEAKER) (test jhkp=377) 8.3 GM/DL 11.2-15.7 HEMATOCRIT (BEAKER) (test rals=984) 25.9 % 34.1-44.9 MEAN CORPUSCULAR VOLUME (BEAKER) (test vjfg=298) 89.3 fL 79.4-94.8 MEAN CORPUSCULAR HEMOGLOBIN (BEAKER) (test 28.6 pg 25.6-32.2 uoej=707) MEAN CORPUSCULAR HEMOGLOBIN CONC (BEAKER) (test 32.0 GM/DL 32.2-35.5 uqer=930) RED CELL DISTRIBUTION WIDTH (BEAKER) (test 16.1 % 11.7-14.4 wgie=249) PLATELET COUNT (BEAKER) (test fywb=783) 130 K/CU MM 150-450 MEAN PLATELET VOLUME (BEAKER) (test yrcp=713) 12.3 fL 9.4-12.3 NUCLEATED RED BLOOD CELLS (BEAKER) (test 0 /100 WBC 0-0 mdal=540) NEUTROPHILS RELATIVE PERCENT (BEAKER) (test 86 % gghu=074) LYMPHOCYTES RELATIVE PERCENT (BEAKER) (test 6 % aegc=123) MONOCYTES RELATIVE PERCENT (BEAKER) (test 5 % vyum=163) EOSINOPHILS RELATIVE PERCENT (BEAKER) (test 1 % dmvs=162) BASOPHILS RELATIVE PERCENT (BEAKER) (test 0 % vuze=800) NEUTROPHILS ABSOLUTE COUNT (BEAKER) (test 9.27 K/ L 1.56-6.13 megb=110) LYMPHOCYTES ABSOLUTE COUNT (BEAKER) (test 0.63 K/ L 1.18-3.74 kpfn=190) MONOCYTES ABSOLUTE COUNT (BEAKER) (test 0.58 K/ L 0.24-0.36 qvoc=991) EOSINOPHILS ABSOLUTE COUNT (BEAKER) (test 0.10 K/ L 0.04-0.36 kikp=464) BASOPHILS ABSOLUTE COUNT (BEAKER) (test 0.03 K/ L 0.01-0.08 syyn=330) IMMATURE GRANULOCYTES-RELATIVE PERCENT (BEAKER) 1 % 0-1 (test qvhg=9513) [id number] 02:30:00 Test Item Value Reference Range Comments PHOSPHORUS (BEAKER) (test lnbe=684) 4.3 mg/dL 2.3-4.7 POCT-GLUCOSE [id number] 20:26:00 Test Item Value Reference Range Comments POC-GLUCOSE METER (BEAKER) 186 mg/dL 70-110 TESTED AT [address] (test fprm=0308) [place] [address] POCT-GLUCOSE [id number] 19:16:00 Test Item Value Reference Range Comments POC-GLUCOSE METER (BEAKER) 134 mg/dL 70-110 TESTED AT [address] (test vzca=0008) [place] [address] BASIC METABOLIC [id number] 18:30:00 Test Item Value Reference Range Comments SODIUM (BEAKER) (test 137 meq/L 136-145 gsmq=608) POTASSIUM (BEAKER) (test 3.9 meq/L 3.5-5.1 xefe=476) CHLORIDE (BEAKER) (test 101 meq/L 98-107 onpc=180) CO2 (BEAKER) (test 25 meq/L 22-29 vmak=376) BLOOD UREA NITROGEN 58 mg/dL 7-21 (BEAKER) (test hjzj=348) CREATININE (BEAKER) (test 3.02 mg/dL 0.57-1.25 ntfn=637) GLUCOSE RANDOM (BEAKER) 118 mg/dL 70-105 (test ooce=637) CALCIUM (BEAKER) (test 8.8 mg/dL 8.4-10.2 hjtv=525) EGFR (BEAKER) (test 15 mL/min/1.73 sq m ESTIMATED GFR IS NOT gwzk=5635) ACCURATE CREATININE CLEARANCE IN PREDICTING GLOMERULAR FILTRATION RATE. ESTIMATED GFR IS NOT APPLICABLE FOR DIALYSIS PATIENTS. [id number] 18:26:00 Test Item Value Reference Range Comments PHOSPHORUS (BEAKER) (test yhel=930) 4.2 mg/dL 2.3-4.7 [id number] 18:26:00 Test Item Value Reference Range Comments MAGNESIUM (BEAKER) (test ulbg=431) 1.5 mg/dL 1.6-2.6 CALCIUM, [id number] 18:19:00 Test Item Value Reference Range Comments CALCIUM IONIZED (BEAKER) (test exno=788) 1.13 mmol/L 1.12-1.27 PH, BLOOD (BEAKER) (test aiqc=5877) 7.40 HEPATITIS B SURFACE [id number] 16:05:00 Test Item Value Reference Range Comments HEPATITIS B SURFACE ANTIGEN (2) (BEAKER) (test Nonreactive Nonreactive rkyw=0295) BASIC METABOLIC [id number] 14:26:00 Test Item Value Reference Range Comments SODIUM (BEAKER) (test 135 meq/L 136-145 ioaf=305) POTASSIUM (BEAKER) (test 4.0 meq/L 3.5-5.1 nsbp=848) CHLORIDE (BEAKER) (test 101 meq/L 98-107 zvls=523) CO2 (BEAKER) (test 22 meq/L 22-29 hlrv=883) BLOOD UREA NITROGEN 73 mg/dL 7-21 (BEAKER) (test thmp=236) CREATININE (BEAKER) (test 3.63 mg/dL 0.57-1.25 mrni=870) GLUCOSE RANDOM (BEAKER) 130 mg/dL 70-105 (test lugt=626) CALCIUM (BEAKER) (test 8.1 mg/dL 8.4-10.2 hphp=365) EGFR (BEAKER) (test 13 mL/min/1.73 sq m ESTIMATED GFR IS NOT wwmx=0839) ACCURATE CREATININE CLEARANCE IN PREDICTING GLOMERULAR FILTRATION RATE. ESTIMATED GFR IS NOT APPLICABLE FOR DIALYSIS PATIENTS. [id number] 14:16:00 Test Item Value Reference Range Comments PHOSPHORUS (BEAKER) (test atmg=799) 4.9 mg/dL 2.3-4.7 [id number] 14:16:00 Test Item Value Reference Range Comments MAGNESIUM (BEAKER) (test qsoy=147) 1.5 mg/dL 1.6-2.6 CALCIUM, [id number] 13:49:00 Test Item Value Reference Range Comments CALCIUM IONIZED (BEAKER) (test jpvz=991) 1.04 mmol/L 1.12-1.27 PH, BLOOD (BEAKER) (test xtqc=4187) 7.38 POCT-GLUCOSE [id number] 12:31:00 Test Item Value Reference Range Comments POC-GLUCOSE METER (BEAKER) 123 mg/dL 70-110 TESTED AT [facility] [address] [place] [address] (test xoys=8020) [facility] [address] EEG AWAKE AND [id number] 11:55:00Reason for exam:-> EncephalopathyShould this be performed at the bedside?->YesEEG REPORT: [facility] Date [facility] EE[facility]/17Date of report: EEG start time: 08:48EEG end time: 09:10EEG #: [id number] No: [id number] ICD Code: #: G93.40 Encephalopathy- unspecifiedCPT Code: #: 13338: 01. EEG awake and drowsy;20-40 minPROCEDURE: EEG [...] clinically.Clinical Fellow: Elly GeeNeurophysiologist: Polo Ruffin POCT-GLUCOSE [id number] 08:45:00 Test Item Value Reference Range Comments POC-GLUCOSE METER (BEAKER) 186 mg/dL 70-110 TESTED AT [address] (test kxrf=3615) [facility] [address] BLOOD GAS, [id number] 07:15:00 Test Item Value Reference Range Comments PH ARTERIAL (BEAKER) (test muem=449) 7.43 7.35-7.45 PCO2 ARTERIAL (BEAKER) (test tfrr=409) 26 mmHg 35-45 PO2 ARTERIAL (BEAKER) (test xjah=769) 89 mmHg 80-90 O2 SATURATION ARTERIAL (BEAKER) (test xmar=849) 97.2 % 96.0-97.0 HCO3 ARTERIAL (BEAKER) (test jhhz=763) 17 mmol/L 21-29 BASE EXCESS ARTERIAL (BEAKER) (test mnnh=495) -6.7 mmol/L -2.0-3.0 PATIENT TEMPERATURE (BEAKER) (test vskz=5898) 37.0 C FIO2 (BEAKER) (test xhir=5721) 50.0 % COMPREHENSIVE METABOLIC [id number] 01:52:00 Test Item Value Reference Range Comments TOTAL PROTEIN (BEAKER) 6.9 gm/dL 6.0-8.3 (test nzep=441) ALBUMIN (BEAKER) (test 3.1 g/dL 3.5-5.0 chra=3762) ALKALINE PHOSPHATASE 292 U/L 40-150 (BEAKER) (test ousu=950) BILIRUBIN TOTAL (BEAKER) 0.5 mg/dL 0.2-1.2 (test whlh=194) SODIUM (BEAKER) (test 131 meq/L 136-145 ppif=617) POTASSIUM (BEAKER) (test 5.8 meq/L 3.5-5.1 wuwo=886) CHLORIDE (BEAKER) (test 101 meq/L 98-107 ywcv=937) CO2 (BEAKER) (test 14 meq/L 22-29 rfcu=775) BLOOD UREA NITROGEN 100 mg/dL 7-21 (BEAKER) (test cyiq=752) CREATININE (BEAKER) (test 5.43 mg/dL 0.57-1.25 jysa=018) GLUCOSE RANDOM (BEAKER) 153 mg/dL 70-105 (test zoad=199) CALCIUM (BEAKER) (test 7.9 mg/dL 8.4-10.2 vfwv=424) AST (SGOT) (BEAKER) (test 32 U/L 5-34 skuw=573) ALT (SGPT) (BEAKER) (test 33 U/L 6-55 tysv=320) EGFR (BEAKER) (test 8 mL/min/1.73 sq m ESTIMATED GFR IS NOT yksv=7273) ACCURATE CREATININE CLEARANCE IN PREDICTING GLOMERULAR FILTRATION RATE. ESTIMATED GFR IS NOT APPLICABLE FOR DIALYSIS PATIENTS. COMPREHENSIVE METABOLIC [id number] 01:52:00 Test Item Value Reference Range Comments TOTAL PROTEIN (BEAKER) 6.9 gm/dL 6.0-8.3 (test fbeq=742) ALBUMIN (BEAKER) (test 3.1 g/dL 3.5-5.0 lzdo=4297) ALKALINE PHOSPHATASE 292 U/L 40-150 (BEAKER) (test gtpy=218) BILIRUBIN TOTAL (BEAKER) 0.5 mg/dL 0.2-1.2 (test mzqi=525) SODIUM (BEAKER) (test 132 meq/L 136-145 iiru=701) POTASSIUM (BEAKER) (test 5.7 meq/L 3.5-5.1 wces=301) CHLORIDE (BEAKER) (test 100 meq/L 98-107 dlmh=711) CO2 (BEAKER) (test 16 meq/L 22-29 dwyd=616) BLOOD UREA NITROGEN 99 mg/dL 7-21 (BEAKER) (test uphh=231) CREATININE (BEAKER) (test 5.39 mg/dL 0.57-1.25 zfif=289) GLUCOSE RANDOM (BEAKER) 153 mg/dL 70-105 (test onuq=184) CALCIUM (BEAKER) (test 8.0 mg/dL 8.4-10.2 szre=018) AST (SGOT) (BEAKER) (test 32 U/L 5-34 daex=113) ALT (SGPT) (BEAKER) (test 35 U/L 6-55 ofdz=460) EGFR (BEAKER) (test 8 mL/min/1.73 sq m ESTIMATED GFR IS NOT cxuz=3749) ACCURATE CREATININE CLEARANCE IN PREDICTING GLOMERULAR FILTRATION RATE. ESTIMATED GFR IS NOT APPLICABLE FOR DIALYSIS PATIENTS. CBC W/PLT COUNT & AUTO [id number] 01:41:00 Test Item Value Reference Range Comments WHITE BLOOD CELL COUNT (BEAKER) (test twqe=341) 11.6 K/ L 3.5-10.5 RED BLOOD CELL COUNT (BEAKER) (test cwur=201) 3.03 M/ L 3.93-5.22 HEMOGLOBIN (BEAKER) (test dgpj=727) 8.8 GM/DL 11.2-15.7 HEMATOCRIT (BEAKER) (test qoqp=257) 27.0 % 34.1-44.9 MEAN CORPUSCULAR VOLUME (BEAKER) (test jkdb=904) 89.1 fL 79.4-94.8 MEAN CORPUSCULAR HEMOGLOBIN (BEAKER) (test 29.0 pg 25.6-32.2 pdev=301) MEAN CORPUSCULAR HEMOGLOBIN CONC (BEAKER) (test 32.6 GM/DL 32.2-35.5 vnaf=327) RED CELL DISTRIBUTION WIDTH (BEAKER) (test 16.1 % 11.7-14.4 bflh=283) PLATELET COUNT (BEAKER) (test rlaa=887) 143 K/CU MM 150-450 MEAN PLATELET VOLUME (BEAKER) (test ipue=528) 12.5 fL 9.4-12.3 NUCLEATED RED BLOOD CELLS (BEAKER) (test 0 /100 WBC 0-0 iprq=889) NEUTROPHILS RELATIVE PERCENT (BEAKER) (test 86 % vdnx=962) LYMPHOCYTES RELATIVE PERCENT (BEAKER) (test 6 % gnch=699) MONOCYTES RELATIVE PERCENT (BEAKER) (test 4 % hgjw=503) EOSINOPHILS RELATIVE PERCENT (BEAKER) (test 0 % whjm=332) BASOPHILS RELATIVE PERCENT (BEAKER) (test 0 % kvvd=329) NEUTROPHILS ABSOLUTE COUNT (BEAKER) (test 10.04 K/ L 1.56-6.13 yldu=798) LYMPHOCYTES ABSOLUTE COUNT (BEAKER) (test 0.66 K/ L 1.18-3.74 eanz=104) MONOCYTES ABSOLUTE COUNT (BEAKER) (test 0.47 K/ L 0.24-0.36 hzdf=865) EOSINOPHILS ABSOLUTE COUNT (BEAKER) (test 0.04 K/ L 0.04-0.36 ywnh=489) BASOPHILS ABSOLUTE COUNT (BEAKER) (test 0.03 K/ L 0.01-0.08 vzpy=438) IMMATURE GRANULOCYTES-RELATIVE PERCENT (BEAKER) 3 % 0-1 (test ktxj=9220) HEPATIC FUNCTION [id number] 01:40:00 Test Item Value Reference Range Comments TOTAL PROTEIN (BEAKER) (test yvli=811) 6.9 gm/dL 6.0-8.3 ALBUMIN (BEAKER) (test xqjj=1697) 3.1 g/dL 3.5-5.0 BILIRUBIN TOTAL (BEAKER) (test zypu=198) 0.5 mg/dL 0.2-1.2 BILIRUBIN DIRECT (BEAKER) (test aerl=257) 0.3 mg/dL 0.1-0.5 ALKALINE PHOSPHATASE (BEAKER) (test bbng=179) 292 U/L 40-150 AST (SGOT) (BEAKER) (test bdzr=171) 32 U/L 5-34 ALT (SGPT) (BEAKER) (test nrqh=431) 35 U/L 6-55 CBC W/PLT COUNT & AUTO [id number] 01:40:00 Test Item Value Reference Range Comments WHITE BLOOD CELL COUNT (BEAKER) (test imjq=148) 11.4 K/ L 3.5-10.5 RED BLOOD CELL COUNT (BEAKER) (test tssv=960) 3.04 M/ L 3.93-5.22 HEMOGLOBIN (BEAKER) (test ndhr=736) 8.8 GM/DL 11.2-15.7 HEMATOCRIT (BEAKER) (test sols=327) 27.0 % 34.1-44.9 MEAN CORPUSCULAR VOLUME (BEAKER) (test sppz=066) 88.8 fL 79.4-94.8 MEAN CORPUSCULAR HEMOGLOBIN (BEAKER) (test 28.9 pg 25.6-32.2 dkqb=675) MEAN CORPUSCULAR HEMOGLOBIN CONC (BEAKER) (test 32.6 GM/DL 32.2-35.5 lvyp=482) RED CELL DISTRIBUTION WIDTH (BEAKER) (test 16.2 % 11.7-14.4 xnzn=639) PLATELET COUNT (BEAKER) (test fohb=159) 145 K/CU MM 150-450 MEAN PLATELET VOLUME (BEAKER) (test xtwe=036) 13.2 fL 9.4-12.3 NUCLEATED RED BLOOD CELLS (BEAKER) (test 0 /100 WBC 0-0 lodl=178) NEUTROPHILS RELATIVE PERCENT (BEAKER) (test 86 % ocas=846) LYMPHOCYTES RELATIVE PERCENT (BEAKER) (test 6 % sveq=057) MONOCYTES RELATIVE PERCENT (BEAKER) (test 5 % wuig=554) EOSINOPHILS RELATIVE PERCENT (BEAKER) (test 0 % fmbw=225) BASOPHILS RELATIVE PERCENT (BEAKER) (test 0 % bwpv=851) NEUTROPHILS ABSOLUTE COUNT (BEAKER) (test 9.87 K/ L 1.56-6.13 jjwm=933) LYMPHOCYTES ABSOLUTE COUNT (BEAKER) (test 0.64 K/ L 1.18-3.74 hbde=110) MONOCYTES ABSOLUTE COUNT (BEAKER) (test 0.51 K/ L 0.24-0.36 alfp=678) EOSINOPHILS ABSOLUTE COUNT (BEAKER) (test 0.03 K/ L 0.04-0.36 hnuq=143) BASOPHILS ABSOLUTE COUNT (BEAKER) (test 0.02 K/ L 0.01-0.08 vbsm=916) IMMATURE GRANULOCYTES-RELATIVE PERCENT (BEAKER) 3 % 0-1 (test xlva=9975) RAD, CHEST, 1 VIEW, NON [id number] 01:25:00Reason for exam:->tachypnea, hypoxiaShould this be performed [...] MDReport Verified Date/Time: 05/04/2018 01:25:17 Reading Location: [address] Reading Room POCT-LACTIC ACID, [id number] 01:17:00 Test Item Value Reference Range Comments POC-LACTIC ACID, ARTERIAL 0.4 mmol/L 0.4-1.3 TESTED [address] (BEAKER) (test obey=2906) [place] [id number] POCT-BLOOD GASES, [id number] 01:17:00 Test Item Value Reference Range Comments TEMP, CELSIUS-POC (BEAKER) 37.0 (test vcig=6866) FIO2-POC (BEAKER) (test TESTED AT [address] nulf=9076) [place] [id number] PH, ARTERIAL-POC (BEAKER) 7.344 7.350-7.450 (test fhrb=9177) PCO2, ARTERIAL-POC (BEAKER) 33.4 mm Hg 35.0-45.0 (test rfvn=2821) PO2, ARTERIAL-POC (BEAKER) 72.0 mm Hg 80.0-90.0 (test dfvo=0527) SO2, ARTERIAL-POC (BEAKER) 94.0 % 96.0-97.0 (test vkqk=5930) HCO3, ARTERIAL-POC (BEAKER) 18.2 meq/L 21.0-29.0 (test wlmp=0669) BASE EXCESS, ARTERIAL-POC -7.0 meq/L -2.0-3.0 (BEAKER) (test bopz=5228) [id number] 01:17:00 Test Item Value Reference Range Comments POC-SODIUM (BEAKER) (test 133 meq/L 135-148 TESTED AT [address] jcjd=2746) [place] [address] [id number] 01:17:00 Test Item Value Reference Range Comments POC-POTASSIUM (BEAKER) (test 5.5 meq/L 3.6-5.5 TESTED AT [address] ymgc=6948) [place] [address] [id number] 01:17:00 Test Item Value Reference Range Comments POC-GLUCOSE (BEAKER) (test 157 mg/dL 70-110 TESTED AT [address] ligr=3358) [place] [address] POCT-CALCIUM [id number] 01:17:00 Test Item Value Reference Range Comments POC-CALCIUM IONIZED (BEAKER) 1.07 mmol/L 1.12-1.27 TESTED AT [address] (test yjuw=2708) [place] [address] [id number] 01:17:00 Test Item Value Reference Range Comments POC-HEMATOCRIT (BEAKER) (test 27 % 36-45 TESTED AT [address] eoxy=7637) [place] [address] [id number] 01:17:00 Test Item Value Reference Range Comments POC-HEMOGLOBIN (BEAKER) 9.2 g/dL 12.0-15.0 TESTED AT [address] (test yiay=9862) [place] [address]TESTED AT [place] [address] POCT-GLUCOSE [id number] 22:01:00 Test Item Value Reference Range Comments POC-GLUCOSE METER (BEAKER) 142 mg/dL 70-110 TESTED AT [address] (test kpxg=2221) [place] [address] POCT-GLUCOSE [id number] 17:45:00 Test Item Value Reference Range Comments POC-GLUCOSE METER (BEAKER) 82 mg/dL 70-110 TESTED AT [address] (test cabp=2917) [place] [address] POCT-GLUCOSE [id number] 12:42:00 Test Item Value Reference Range Comments POC-GLUCOSE METER (BEAKER) 129 mg/dL 70-110 TESTED AT [address] (test ybxi=4455) [place] [address] BASIC METABOLIC [id number] 11:59:00 Test Item Value Reference Range Comments SODIUM (BEAKER) (test 134 meq/L 136-145 qgah=999) POTASSIUM (BEAKER) (test 4.8 meq/L 3.5-5.1 usoy=311) CHLORIDE (BEAKER) (test 101 meq/L 98-107 kqqh=443) CO2 (BEAKER) (test 21 meq/L 22-29 jkfj=208) BLOOD UREA NITROGEN 96 mg/dL 7-21 (BEAKER) (test lpsb=932) CREATININE (BEAKER) (test 4.93 mg/dL 0.57-1.25 qhtz=171) GLUCOSE RANDOM (BEAKER) 116 mg/dL 70-105 (test xrif=845) CALCIUM (BEAKER) (test 8.1 mg/dL 8.4-10.2 xmsm=853) EGFR (BEAKER) (test 9 mL/min/1.73 sq m ESTIMATED GFR IS NOT jels=8897) ACCURATE CREATININE CLEARANCE IN PREDICTING GLOMERULAR FILTRATION RATE. ESTIMATED GFR IS NOT APPLICABLE FOR DIALYSIS PATIENTS. HEPATIC FUNCTION [id number] 11:59:00 Test Item Value Reference Range Comments TOTAL PROTEIN (BEAKER) (test bxbj=859) 6.3 gm/dL 6.0-8.3 ALBUMIN (BEAKER) (test gpjg=3410) 2.8 g/dL 3.5-5.0 BILIRUBIN TOTAL (BEAKER) (test urqf=441) 0.4 mg/dL 0.2-1.2 BILIRUBIN DIRECT (BEAKER) (test vody=207) 0.2 mg/dL 0.1-0.5 ALKALINE PHOSPHATASE (BEAKER) (test tbiz=458) 220 U/L 40-150 AST (SGOT) (BEAKER) (test micr=671) 19 U/L 5-34 ALT (SGPT) (BEAKER) (test uita=170) 26 U/L 6-55 CBC W/PLT COUNT & AUTO [id number] 11:41:00 Test Item Value Reference Range Comments WHITE BLOOD CELL COUNT (BEAKER) (test qdtz=649) 11.5 K/ L 3.5-10.5 RED BLOOD CELL COUNT (BEAKER) (test bace=469) 3.08 M/ L 3.93-5.22 HEMOGLOBIN (BEAKER) (test qgxc=807) 8.9 GM/DL 11.2-15.7 HEMATOCRIT (BEAKER) (test cxjx=962) 27.1 % 34.1-44.9 MEAN CORPUSCULAR VOLUME (BEAKER) (test krlj=868) 88.0 fL 79.4-94.8 MEAN CORPUSCULAR HEMOGLOBIN (BEAKER) (test 28.9 pg 25.6-32.2 nzbe=650) MEAN CORPUSCULAR HEMOGLOBIN CONC (BEAKER) (test 32.8 GM/DL 32.2-35.5 plut=597) RED CELL DISTRIBUTION WIDTH (BEAKER) (test 15.9 % 11.7-14.4 dlmf=256) PLATELET COUNT (BEAKER) (test pmsz=189) 151 K/CU MM 150-450 MEAN PLATELET VOLUME (BEAKER) (test kspf=007) 12.1 fL 9.4-12.3 NUCLEATED RED BLOOD CELLS (BEAKER) (test 0 /100 WBC 0-0 prfy=720) NEUTROPHILS RELATIVE PERCENT (BEAKER) (test 84 % tvnb=191) LYMPHOCYTES RELATIVE PERCENT (BEAKER) (test 7 % anho=465) MONOCYTES RELATIVE PERCENT (BEAKER) (test 5 % yjth=998) EOSINOPHILS RELATIVE PERCENT (BEAKER) (test 2 % kezj=534) BASOPHILS RELATIVE PERCENT (BEAKER) (test 0 % kdim=623) NEUTROPHILS ABSOLUTE COUNT (BEAKER) (test 9.61 K/ L 1.56-6.13 uhyb=887) LYMPHOCYTES ABSOLUTE COUNT (BEAKER) (test 0.84 K/ L 1.18-3.74 tozi=979) MONOCYTES ABSOLUTE COUNT (BEAKER) (test 0.59 K/ L 0.24-0.36 wtls=749) EOSINOPHILS ABSOLUTE COUNT (BEAKER) (test 0.18 K/ L 0.04-0.36 xhix=623) BASOPHILS ABSOLUTE COUNT (BEAKER) (test 0.03 K/ L 0.01-0.08 uool=029) IMMATURE GRANULOCYTES-RELATIVE PERCENT (BEAKER) 2 % 0-1 (test fbjt=9360) RAD, CHEST, 1 VIEW, NON [id number] 11:17:00Reason for exam:->sobShould this be performed at [...] MDReport Verified Date/Time: 05/03/2018 11:17:19 Reading Location: [facility] Radiology Reading Room POCT- GLUCOSE [id number] 08:52:00 Test Item Value Reference Range Comments POC-GLUCOSE METER (BEAKER) 136 mg/dL 70-110 TESTED AT [address] (test hfqh=1845) [facility] [address] U/S, RENAL, [id number] 08:07:00Reason for exam:->acute renal failureShould this be [...] Verified Date/Time: 05/03/2018 08: 07:49 Reading Location: [facility] B1 [id number] Ultrasound Reading Room SODIUM, RANDOM [id number] 23:21:00 Test Item Value Reference Range Comments SODIUM URINE (BEAKER) (test smwp=394) 21 meq/L Reference Range: No NormalsCREATININE, RANDOM [id number] 23:19:00 Test Item Value Reference Range Comments CREATININE URINE (BEAKER) (test yhlh=850) 141.1 mg/dL Reference Range: No NormalsUREA NITROGEN, RANDOM [id number] 23:19:00 Test Item Value Reference Range Comments UREA NITROGEN URINE (BEAKER) (test dqdk=029) 231 mg/dL Reference Range: No NormalsURINALYSIS W/ [id number] 23:10:00 Test Item Value Reference Range Comments COLOR (BEAKER) (test jhui=903) Yellow CLARITY (BEAKER) (test vpmr=655) Cloudy SPECIFIC GRAVITY UA (BEAKER) (test eegs=095) 1.017 1.001-1.035 PH UA (BEAKER) (test zwid=556) 5.5 5.0-8.0 PROTEIN UA (BEAKER) (test zdsh=270) 200 mg/dL Negative GLUCOSE UA (BEAKER) (test ygpz=711) Negative Negative KETONES UA (BEAKER) (test cdmp=896) Negative Negative BILIRUBIN UA (BEAKER) (test seuy=425) Negative Negative BLOOD UA (BEAKER) (test hvnz=179) Moderate Negative NITRITE UA (BEAKER) (test wuav=633) Negative Negative LEUKOCYTE ESTERASE UA (BEAKER) (test xnin=487) Large Negative UROBILINOGEN UA (BEAKER) (test fmrd=434) 0.2 mg/dL 0.2-1.0 RBC UA (BEAKER) (test lryx=768) 106 /HPF WBC UA (BEAKER) (test zvqk=233) > /HPF MUCUS (BEAKER) (test fjsr=4694) Rare SQUAMOUS EPITHELIAL (BEAKER) (test hhhc=310) 3 /HPF YEAST (BEAKER) (test suor=7918) Few SOURCE(BEAKER) (test rcrn=2056) Urine, [place] POCT-GLUCOSE [id number] 20:52:00 Test Item Value Reference Range Comments POC-GLUCOSE METER (BEAKER) 71 mg/dL 70-110 TESTED AT [place] [address] [address] (test dnnu=7786) [facility] [address] BASIC METABOLIC [id number] 20:12:00 Test Item Value Reference Range Comments SODIUM (BEAKER) (test 134 meq/L 136-145 bxyp=941) POTASSIUM (BEAKER) (test 4.5 meq/L 3.5-5.1 vext=990) CHLORIDE (BEAKER) (test 102 meq/L 98-107 nttz=434) CO2 (BEAKER) (test 20 meq/L 22-29 hthi=625) BLOOD UREA NITROGEN 91 mg/dL 7-21 (BEAKER) (test tknq=615) CREATININE (BEAKER) (test 4.52 mg/dL 0.57-1.25 xtxm=548) GLUCOSE RANDOM (BEAKER) 69 mg/dL 70-105 (test baou=857) CALCIUM (BEAKER) (test 7.9 mg/dL 8.4-10.2 yiwb=871) EGFR (BEAKER) (test 10 mL/min/1.73 sq m ESTIMATED GFR IS NOT yjah=6416) ACCURATE CREATININE CLEARANCE IN PREDICTING GLOMERULAR FILTRATION RATE. ESTIMATED GFR IS NOT APPLICABLE FOR DIALYSIS PATIENTS. [id number] 20:04:00 Test Item Value Reference Range Comments AMMONIA (BEAKER) (test tdoc=063) 28 mol/L 18-72 CBC W/PLT COUNT & AUTO [id number] 19:59:00 Test Item Value Reference Range Comments WHITE BLOOD CELL COUNT (BEAKER) (test grem=627) 9.1 K/ L 3.5-10.5 RED BLOOD CELL COUNT (BEAKER) (test fhtd=117) 2.81 M/ L 3.93-5.22 HEMOGLOBIN (BEAKER) (test hglh=569) 8.1 GM/DL 11.2-15.7 HEMATOCRIT (BEAKER) (test lrvc=803) 25.2 % 34.1-44.9 MEAN CORPUSCULAR VOLUME (BEAKER) (test qwdq=766) 89.7 fL 79.4-94.8 MEAN CORPUSCULAR HEMOGLOBIN (BEAKER) (test 28.8 pg 25.6-32.2 jlqu=643) MEAN CORPUSCULAR HEMOGLOBIN CONC (BEAKER) (test 32.1 GM/DL 32.2-35.5 vbsr=880) RED CELL DISTRIBUTION WIDTH (BEAKER) (test 16.0 % 11.7-14.4 nwqs=294) PLATELET COUNT (BEAKER) (test qcfe=956) 133 K/CU MM 150-450 MEAN PLATELET VOLUME (BEAKER) (test bntl=048) 12.4 fL 9.4-12.3 NUCLEATED RED BLOOD CELLS (BEAKER) (test 0 /100 WBC 0-0 zsqi=811) NEUTROPHILS RELATIVE PERCENT (BEAKER) (test 82 % fwxx=383) LYMPHOCYTES RELATIVE PERCENT (BEAKER) (test 8 % yfho=125) MONOCYTES RELATIVE PERCENT (BEAKER) (test 7 % cjup=565) EOSINOPHILS RELATIVE PERCENT (BEAKER) (test 2 % iuft=190) BASOPHILS RELATIVE PERCENT (BEAKER) (test 0 % wqmu=911) NEUTROPHILS ABSOLUTE COUNT (BEAKER) (test 7.50 K/ L 1.56-6.13 zwar=272) LYMPHOCYTES ABSOLUTE COUNT (BEAKER) (test 0.70 K/ L 1.18-3.74 mtyd=311) MONOCYTES ABSOLUTE COUNT (BEAKER) (test 0.59 K/ L 0.24-0.36 bmre=242) EOSINOPHILS ABSOLUTE COUNT (BEAKER) (test 0.19 K/ L 0.04-0.36 escl=130) BASOPHILS ABSOLUTE COUNT (BEAKER) (test 0.01 K/ L 0.01-0.08 clgj=555) IMMATURE GRANULOCYTES-RELATIVE PERCENT (BEAKER) 1 % 0-1 (test vfef=0315) POCT-GLUCOSE [id number] 17:36:00 Test Item Value Reference Range Comments POC-GLUCOSE METER (BEAKER) 85 mg/dL 70-110 TESTED AT [address] (test aywe=9934) [place] [id number] POCT-GLUCOSE [id number] 12:16:00 Test Item Value Reference Range Comments POC-GLUCOSE METER (BEAKER) 133 mg/dL 70-110 TESTED AT [address] (test emhp=4665) [place] [id number] POCT-GLUCOSE [id number] 09:17:00 Test Item Value Reference Range Comments POC-GLUCOSE METER (BEAKER) 102 mg/dL 70-110 TESTED AT [address] (test unqy=3466) [place] [id number] BASIC METABOLIC [id number] 05:51:00 Test Item Value Reference Range Comments SODIUM (BEAKER) (test 132 meq/L 136-145 lpiw=753) POTASSIUM (BEAKER) (test 4.6 meq/L 3.5-5.1 mhyp=583) CHLORIDE (BEAKER) (test 100 meq/L 98-107 bmgw=473) CO2 (BEAKER) (test 19 meq/L 22-29 degp=199) BLOOD UREA NITROGEN 89 mg/dL 7-21 (BEAKER) (test kluj=167) CREATININE (BEAKER) (test 4.37 mg/dL 0.57-1.25 wdgk=470) GLUCOSE RANDOM (BEAKER) 63 mg/dL 70-105 (test cmke=645) CALCIUM (BEAKER) (test 7.9 mg/dL 8.4-10.2 nuav=997) EGFR (BEAKER) (test 10 mL/min/1.73 sq m ESTIMATED GFR IS NOT txtd=7340) ACCURATE CREATININE CLEARANCE IN PREDICTING GLOMERULAR FILTRATION RATE. ESTIMATED GFR IS NOT APPLICABLE FOR DIALYSIS PATIENTS. B-TYPE NATRIURETIC FACTOR (BNP)2018-05-02 05:32:00 Test Item Value Reference Range Comments B-TYPE NATRIURETIC PEPTIDE (BEAKER) (test 658 pg/mL 0-100 acwn=436) CBC W/PLT COUNT & AUTO [id number] 05:16:00 Test Item Value Reference Range Comments WHITE BLOOD CELL COUNT (BEAKER) (test qokv=288) 9.0 K/ L 3.5-10.5 RED BLOOD CELL COUNT (BEAKER) (test oyqp=911) 2.78 M/ L 3.93-5.22 HEMOGLOBIN (BEAKER) (test yilj=077) 8.1 GM/DL 11.2-15.7 HEMATOCRIT (BEAKER) (test eihk=152) 24.6 % 34.1-44.9 MEAN CORPUSCULAR VOLUME (BEAKER) (test zlxh=137) 88.5 fL 79.4-94.8 MEAN CORPUSCULAR HEMOGLOBIN (BEAKER) (test 29.1 pg 25.6-32.2 ytsg=261) MEAN CORPUSCULAR HEMOGLOBIN CONC (BEAKER) (test 32.9 GM/DL 32.2-35.5 libf=437) RED CELL DISTRIBUTION WIDTH (BEAKER) (test 15.9 % 11.7-14.4 ymxo=464) PLATELET COUNT (BEAKER) (test lmuq=801) 143 K/CU MM 150-450 MEAN PLATELET VOLUME (BEAKER) (test xcvj=847) 12.3 fL 9.4-12.3 NUCLEATED RED BLOOD CELLS (BEAKER) (test 0 /100 WBC 0-0 xuji=037) NEUTROPHILS RELATIVE PERCENT (BEAKER) (test 81 % piwg=394) LYMPHOCYTES RELATIVE PERCENT (BEAKER) (test 9 % kmdx=481) MONOCYTES RELATIVE PERCENT (BEAKER) (test 8 % vlne=250) EOSINOPHILS RELATIVE PERCENT (BEAKER) (test 2 % pgig=730) BASOPHILS RELATIVE PERCENT (BEAKER) (test 0 % trkc=178) NEUTROPHILS ABSOLUTE COUNT (BEAKER) (test 7.24 K/ L 1.56-6.13 sije=777) LYMPHOCYTES ABSOLUTE COUNT (BEAKER) (test 0.79 K/ L 1.18-3.74 fhwi=803) MONOCYTES ABSOLUTE COUNT (BEAKER) (test 0.69 K/ L 0.24-0.36 tqmf=382) EOSINOPHILS ABSOLUTE COUNT (BEAKER) (test 0.18 K/ L 0.04-0.36 rmhq=116) BASOPHILS ABSOLUTE COUNT (BEAKER) (test 0.03 K/ L 0.01-0.08 ppwg=667) IMMATURE GRANULOCYTES-RELATIVE PERCENT (BEAKER) 1 % 0-1 (test ljyq=5063) POCT-GLUCOSE [id number] 20:35:00 Test Item Value Reference Range Comments POC-GLUCOSE METER (BEAKER) 128 mg/dL 70-110 TESTED AT [address] (test xwxd=3039) [facility] [address] POCT-GLUCOSE [id number] 16:35:00 Test Item Value Reference Range Comments POC-GLUCOSE METER (BEAKER) 172 mg/dL 70-110 TESTED AT [address] (test mhkr=9211) [place] [id number] POCT-GLUCOSE [id number] 14:05:00 Test Item Value Reference Range Comments POC-GLUCOSE METER (BEAKER) 200 mg/dL 70-110 TESTED AT [address] (test pzzz=0650) [place] [id number] POCT-GLUCOSE [id number] 08:13:00 Test Item Value Reference Range Comments POC-GLUCOSE METER (BEAKER) 86 mg/dL 70-110 TESTED AT [facility] [address] (test byam=1614) [facility] [address] BASIC METABOLIC [id number] 07:14:00 Test Item Value Reference Range Comments SODIUM (BEAKER) (test 133 meq/L 136-145 rcdn=312) POTASSIUM (BEAKER) (test 4.4 meq/L 3.5-5.1 ktow=837) CHLORIDE (BEAKER) (test 101 meq/L 98-107 hqyd=833) CO2 (BEAKER) (test 20 meq/L 22-29 zeiz=276) BLOOD UREA NITROGEN 83 mg/dL 7-21 (BEAKER) (test azrv=589) CREATININE (BEAKER) (test 3.85 mg/dL 0.57-1.25 jccw=052) GLUCOSE RANDOM (BEAKER) 74 mg/dL 70-105 (test varf=366) CALCIUM (BEAKER) (test 8.1 mg/dL 8.4-10.2 ktbz=261) EGFR (BEAKER) (test 12 mL/min/1.73 sq m ESTIMATED GFR IS NOT lndx=9549) ACCURATE CREATININE CLEARANCE IN PREDICTING GLOMERULAR FILTRATION RATE. ESTIMATED GFR IS NOT APPLICABLE FOR DIALYSIS PATIENTS. IRON, TIBC, % SAT. (WITHOUT FERRITIN)2018-05-01 06:53:00 Test Item Value Reference Range Comments IRON (BEAKER) (test ikde=397) 19.0 ug/dL 40.0-160.0 TOTAL IRON BINDING CAPACITY (BEAKER) (test 125 ug/dL 250-450 ayag=068) IRON % SATURATION (2) (BEAKER) (test ockz=3274) 15 % 20-55 CBC W/PLT COUNT & AUTO [id number] 06:30:00 Test Item Value Reference Range Comments WHITE BLOOD CELL COUNT (BEAKER) (test frav=049) 8.2 K/ L 3.5-10.5 RED BLOOD CELL COUNT (BEAKER) (test rffg=518) 2.72 M/ L 3.93-5.22 HEMOGLOBIN (BEAKER) (test jnkp=297) 8.0 GM/DL 11.2-15.7 HEMATOCRIT (BEAKER) (test rpes=942) 24.3 % 34.1-44.9 MEAN CORPUSCULAR VOLUME (BEAKER) (test gejq=190) 89.3 fL 79.4-94.8 MEAN CORPUSCULAR HEMOGLOBIN (BEAKER) (test 29.4 pg 25.6-32.2 wftp=327) MEAN CORPUSCULAR HEMOGLOBIN CONC (BEAKER) (test 32.9 GM/DL 32.2-35.5 mvek=782) RED CELL DISTRIBUTION WIDTH (BEAKER) (test 16.3 % 11.7-14.4 mgjr=535) PLATELET COUNT (BEAKER) (test uvaf=519) 147 K/CU MM 150-450 MEAN PLATELET VOLUME (BEAKER) (test ckvu=764) 12.7 fL 9.4-12.3 NUCLEATED RED BLOOD CELLS (BEAKER) (test 0 /100 WBC 0-0 kzfw=369) NEUTROPHILS RELATIVE PERCENT (BEAKER) (test 76 % wpot=499) LYMPHOCYTES RELATIVE PERCENT (BEAKER) (test 12 % soio=349) MONOCYTES RELATIVE PERCENT (BEAKER) (test 9 % ziuq=745) EOSINOPHILS RELATIVE PERCENT (BEAKER) (test 3 % cfwx=787) BASOPHILS RELATIVE PERCENT (BEAKER) (test 0 % ospk=196) NEUTROPHILS ABSOLUTE COUNT (BEAKER) (test 6.20 K/ L 1.56-6.13 tsqd=381) LYMPHOCYTES ABSOLUTE COUNT (BEAKER) (test 0.96 K/ L 1.18-3.74 vnus=792) MONOCYTES ABSOLUTE COUNT (BEAKER) (test 0.71 K/ L 0.24-0.36 eosg=615) EOSINOPHILS ABSOLUTE COUNT (BEAKER) (test 0.21 K/ L 0.04-0.36 vsat=278) BASOPHILS ABSOLUTE COUNT (BEAKER) (test 0.02 K/ L 0.01-0.08 ztwq=193) IMMATURE GRANULOCYTES-RELATIVE PERCENT (BEAKER) 1 % 0-1 (test iyut=3637) POCT-GLUCOSE [id number] 05:42:00 Test Item Value Reference Range Comments POC-GLUCOSE METER (BEAKER) 87 mg/dL 70-110 TESTED AT [address] (test gytl=5256) [facility] [address] POCT-GLUCOSE [id number] 20:48:00 Test Item Value Reference Range Comments POC-GLUCOSE METER (BEAKER) 65 mg/dL 70-110 TESTED AT [address] (test reaz=8563) [facility] [address] SODIUM, RANDOM [id number] 19:53:00 Test Item Value Reference Range Comments SODIUM URINE (BEAKER) (test uxdx=254) < meq/L Reference Range: No NormalsCREATININE, RANDOM [id number] 19:50:00 Test Item Value Reference Range Comments CREATININE URINE (BEAKER) (test cxma=907) 138.1 mg/dL Reference Range: No NormalsUREA NITROGEN, RANDOM [id number] 19:50:00 Test Item Value Reference Range Comments UREA NITROGEN URINE (BEAKER) (test mxzl=962) 305 mg/dL Reference Range: No NormalsPOCT-GLUCOSE [id number] 16:47:00 Test Item Value Reference Range Comments POC-GLUCOSE METER (BEAKER) 142 mg/dL 70-110 TESTED AT [address] (test suuz=7246) [facility] [address] EOSINOPHIL SMEAR, [id number] 16:01:00 Test Item Value Reference Range Comments EOSINOPHIL SMEAR, URINE (BEAKER) (test No EOS seen No EOS seen aghe=5337) URINALYSIS W/ [id number] 15:27:00 Test Item Value Reference Range Comments COLOR (BEAKER) (test zpeu=089) Yellow CLARITY (BEAKER) (test ccbt=132) Cloudy SPECIFIC GRAVITY UA (BEAKER) (test vsbt=414) 1.015 1.001-1.035 PH UA (BEAKER) (test mpzk=695) 5.0 5.0-8.0 PROTEIN UA (BEAKER) (test cjam=280) 100 mg/dL Negative GLUCOSE UA (BEAKER) (test bvzy=681) 70 mg/dL Negative KETONES UA (BEAKER) (test gcuu=165) Negative Negative BILIRUBIN UA (BEAKER) (test hkpz=291) Negative Negative BLOOD UA (BEAKER) (test zktn=563) Negative Negative NITRITE UA (BEAKER) (test cthl=667) Negative Negative LEUKOCYTE ESTERASE UA (BEAKER) (test gmce=657) Small Negative UROBILINOGEN UA (BEAKER) (test oubm=234) 0.2 mg/dL 0.2-1.0 RBC UA (BEAKER) (test cwnd=950) 5 /HPF WBC UA (BEAKER) (test hmcs=719) 29 /HPF SQUAMOUS EPITHELIAL (BEAKER) (test fxrq=756) 5 /HPF HYALINE CASTS (BEAKER) (test oceq=547) 4 /LPF CASTS (BEAKER) (test zupl=5004) 7 /LPF CRYSTALS, URINE (BEAKER) (test meen=8699) Moderate YEAST (BEAKER) (test gvcc=5246) Rare SOURCE(BEAKER) (test njfd=0112) POCT-GLUCOSE [id number] 13:24:00 Test Item Value Reference Range Comments POC-GLUCOSE METER (BEAKER) 198 mg/dL 70-110 TESTED AT [address] (test urdj=8952) [place] [address] POCT-GLUCOSE [id number] 07:49:00 Test Item Value Reference Range Comments POC-GLUCOSE METER (BEAKER) 109 mg/dL 70-110 TESTED AT [address] (test ldkk=0104) [place] [address] BASIC METABOLIC [id number] 04:29:00 Test Item Value Reference Range Comments SODIUM (BEAKER) (test 133 meq/L 136-145 vbtp=585) POTASSIUM (BEAKER) (test 4.2 meq/L 3.5-5.1 simj=820) CHLORIDE (BEAKER) (test 101 meq/L 98-107 yoth=012) CO2 (BEAKER) (test 21 meq/L 22-29 qhrn=281) BLOOD UREA NITROGEN 76 mg/dL 7-21 (BEAKER) (test foey=139) CREATININE (BEAKER) (test 3.01 mg/dL 0.57-1.25 qcmd=549) GLUCOSE RANDOM (BEAKER) 111 mg/dL 70-105 (test quij=551) CALCIUM (BEAKER) (test 8.4 mg/dL 8.4-10.2 rsty=578) EGFR (BEAKER) (test 16 mL/min/1.73 sq m ESTIMATED GFR IS NOT dgdf=9682) ACCURATE CREATININE CLEARANCE IN PREDICTING GLOMERULAR FILTRATION RATE. ESTIMATED GFR IS NOT APPLICABLE FOR DIALYSIS PATIENTS. CBC W/PLT COUNT & AUTO [id number] 04:06:00 Test Item Value Reference Range Comments WHITE BLOOD CELL COUNT (BEAKER) (test fcki=327) 8.9 K/ L 3.5-10.5 RED BLOOD CELL COUNT (BEAKER) (test tsvy=486) 2.75 M/ L 3.93-5.22 HEMOGLOBIN (BEAKER) (test nchd=902) 8.1 GM/DL 11.2-15.7 HEMATOCRIT (BEAKER) (test pyeb=279) 24.5 % 34.1-44.9 MEAN CORPUSCULAR VOLUME (BEAKER) (test aqdu=475) 89.1 fL 79.4-94.8 MEAN CORPUSCULAR HEMOGLOBIN (BEAKER) (test 29.5 pg 25.6-32.2 aocr=169) MEAN CORPUSCULAR HEMOGLOBIN CONC (BEAKER) (test 33.1 GM/DL 32.2-35.5 vexk=361) RED CELL DISTRIBUTION WIDTH (BEAKER) (test 16.3 % 11.7-14.4 rlxq=641) PLATELET COUNT (BEAKER) (test bfgv=289) 151 K/CU MM 150-450 MEAN PLATELET VOLUME (BEAKER) (test lkna=803) 11.9 fL 9.4-12.3 NUCLEATED RED BLOOD CELLS (BEAKER) (test 0 /100 WBC 0-0 zvya=104) NEUTROPHILS RELATIVE PERCENT (BEAKER) (test 79 % flzy=245) LYMPHOCYTES RELATIVE PERCENT (BEAKER) (test 9 % nwum=100) MONOCYTES RELATIVE PERCENT (BEAKER) (test 8 % taan=502) EOSINOPHILS RELATIVE PERCENT (BEAKER) (test 2 % wmwp=944) BASOPHILS RELATIVE PERCENT (BEAKER) (test 0 % acsa=516) NEUTROPHILS ABSOLUTE COUNT (BEAKER) (test 7.03 K/ L 1.56-6.13 vnks=887) LYMPHOCYTES ABSOLUTE COUNT (BEAKER) (test 0.83 K/ L 1.18-3.74 woby=772) MONOCYTES ABSOLUTE COUNT (BEAKER) (test 0.73 K/ L 0.24-0.36 iedj=542) EOSINOPHILS ABSOLUTE COUNT (BEAKER) (test 0.21 K/ L 0.04-0.36 vqfx=058) BASOPHILS ABSOLUTE COUNT (BEAKER) (test 0.04 K/ L 0.01-0.08 lbec=453) IMMATURE GRANULOCYTES-RELATIVE PERCENT (BEAKER) 1 % 0-1 (test fvps=9631) POCT-GLUCOSE [id number] 21:35:00 Test Item Value Reference Range Comments POC-GLUCOSE METER (BEAKER) 136 mg/dL 70-110 TESTED AT [address] (test uwmf=1016) [facility] [address] RAD, CHEST, 1 VIEW, NON [id number] 18:00:00Reason for exam:->SOBShould this be performed at [...] MDReport Verified Date/Time: 2017 18:00:36 Reading Location: [address] Reading Room POCT- GLUCOSE [id number] 17:00:00 Test Item Value Reference Range Comments POC-GLUCOSE METER (BEAKER) 229 mg/dL 70-110 TESTED AT [address] (test lpbw=5733) [place] [id number] POCT-GLUCOSE [id number] 11:35:00 Test Item Value Reference Range Comments POC-GLUCOSE METER (BEAKER) 180 mg/dL 70-110 TESTED AT [address] (test vcxt=4337) [place] [id number] POCT-GLUCOSE [id number] 08:35:00 Test Item Value Reference Range Comments POC-GLUCOSE METER (BEAKER) 210 mg/dL 70-110 TESTED AT [address] (test ziqy=1513) [facility] [address] BASIC METABOLIC [id number] 06:02:00 Test Item Value Reference Range Comments SODIUM (BEAKER) (test 133 meq/L 136-145 wdmq=980) POTASSIUM (BEAKER) (test 4.1 meq/L 3.5-5.1 imjc=169) CHLORIDE (BEAKER) (test 102 meq/L 98-107 drnn=580) CO2 (BEAKER) (test 21 meq/L 22-29 cgyc=170) BLOOD UREA NITROGEN 67 mg/dL 7-21 (BEAKER) (test yqza=358) CREATININE (BEAKER) (test 2.40 mg/dL 0.57-1.25 gyxv=391) GLUCOSE RANDOM (BEAKER) 212 mg/dL 70-105 (test ygwe=926) CALCIUM (BEAKER) (test 8.1 mg/dL 8.4-10.2 tbwa=439) EGFR (BEAKER) (test 20 mL/min/1.73 sq m ESTIMATED GFR IS NOT whye=1998) ACCURATE CREATININE CLEARANCE IN PREDICTING GLOMERULAR FILTRATION RATE. ESTIMATED GFR IS NOT APPLICABLE FOR DIALYSIS PATIENTS. POCT-GLUCOSE [id number] 22:11:00 Test Item Value Reference Range Comments POC-GLUCOSE METER (BEAKER) 178 mg/dL 70-110 TESTED AT [address] (test noaj=1612) [place] [address] POCT-GLUCOSE [id number] 17:00:00 Test Item Value Reference Range Comments POC-GLUCOSE METER (BEAKER) 121 mg/dL 70-110 TESTED AT [address] (test hfev=4498) [place] [address] POCT-GLUCOSE [id number] 12:17:00 Test Item Value Reference Range Comments POC-GLUCOSE METER (BEAKER) 230 mg/dL 70-110 TESTED AT [address] (test xwcl=8984) [place] [address] POCT-GLUCOSE [id number] 08:00:00 Test Item Value Reference Range Comments POC-GLUCOSE METER (BEAKER) 160 mg/dL 70-110 TESTED AT [address] (test umwr=1547) [place] [address] BASIC METABOLIC [id number] 05:41:00 Test Item Value Reference Range Comments SODIUM (BEAKER) (test 134 meq/L 136-145 jtmm=277) POTASSIUM (BEAKER) (test 4.1 meq/L 3.5-5.1 qleu=150) CHLORIDE (BEAKER) (test 105 meq/L 98-107 hufa=987) CO2 (BEAKER) (test 19 meq/L 22-29 bwdm=348) BLOOD UREA NITROGEN 53 mg/dL 7-21 (BEAKER) (test qhhx=574) CREATININE (BEAKER) (test 1.88 mg/dL 0.57-1.25 tjic=817) GLUCOSE RANDOM (BEAKER) 137 mg/dL 70-105 (test zpef=757) CALCIUM (BEAKER) (test 8.7 mg/dL 8.4-10.2 qbbv=348) EGFR (BEAKER) (test 27 mL/min/1.73 sq m ESTIMATED GFR IS NOT pfcb=8011) ACCURATE CREATININE CLEARANCE IN PREDICTING GLOMERULAR FILTRATION RATE. ESTIMATED GFR IS NOT APPLICABLE FOR DIALYSIS PATIENTS. CBC W/PLT COUNT & AUTO [id number] 05:03:00 Test Item Value Reference Range Comments WHITE BLOOD CELL COUNT (BEAKER) (test kjrs=843) 10.5 K/ L 3.5-10.5 RED BLOOD CELL COUNT (BEAKER) (test uvfs=076) 2.99 M/ L 3.93-5.22 HEMOGLOBIN (BEAKER) (test sgqe=654) 8.7 GM/DL 11.2-15.7 HEMATOCRIT (BEAKER) (test raum=562) 26.8 % 34.1-44.9 MEAN CORPUSCULAR VOLUME (BEAKER) (test lqwf=948) 89.6 fL 79.4-94.8 MEAN CORPUSCULAR HEMOGLOBIN (BEAKER) (test 29.1 pg 25.6-32.2 irec=274) MEAN CORPUSCULAR HEMOGLOBIN CONC (BEAKER) (test 32.5 GM/DL 32.2-35.5 opam=128) RED CELL DISTRIBUTION WIDTH (BEAKER) (test 16.5 % 11.7-14.4 eyed=447) PLATELET COUNT (BEAKER) (test qeue=895) 185 K/CU MM 150-450 MEAN PLATELET VOLUME (BEAKER) (test hutf=937) 12.2 fL 9.4-12.3 NUCLEATED RED BLOOD CELLS (BEAKER) (test 0 /100 WBC 0-0 lcko=283) NEUTROPHILS RELATIVE PERCENT (BEAKER) (test 80 % cvgl=644) LYMPHOCYTES RELATIVE PERCENT (BEAKER) (test 9 % cijz=129) MONOCYTES RELATIVE PERCENT (BEAKER) (test 10 % jgty=366) EOSINOPHILS RELATIVE PERCENT (BEAKER) (test 1 % bqwd=672) BASOPHILS RELATIVE PERCENT (BEAKER) (test 0 % ukja=689) NEUTROPHILS ABSOLUTE COUNT (BEAKER) (test 8.39 K/ L 1.56-6.13 ghde=630) LYMPHOCYTES ABSOLUTE COUNT (BEAKER) (test 0.94 K/ L 1.18-3.74 dimr=524) MONOCYTES ABSOLUTE COUNT (BEAKER) (test 0.99 K/ L 0.24-0.36 vnqm=088) EOSINOPHILS ABSOLUTE COUNT (BEAKER) (test 0.05 K/ L 0.04-0.36 hwre=279) BASOPHILS ABSOLUTE COUNT (BEAKER) (test 0.03 K/ L 0.01-0.08 pzgr=570) IMMATURE GRANULOCYTES-RELATIVE PERCENT (BEAKER) 1 % 0-1 (test tmxa=0243) CT, [id number] 03:51:00Reason for exam:->recurrent no GI loss anemia [...] Verified Date/Time: 04/28/2018 03:51:18 Reading Location : [address] Reading Room POCT-GLUCOSE [id number] 20:43:00 Test Item Value Reference Range Comments POC-GLUCOSE METER (BEAKER) 92 mg/dL 70-110 TESTED AT [address] (test xhuf=3071) [place] [address] POCT-GLUCOSE [id number] 17:35:00 Test Item Value Reference Range Comments POC-GLUCOSE METER (BEAKER) 195 mg/dL 70-110 TESTED AT [address] (test xxmn=0121) [place] [address] PROTEIN ELECTROPHORESIS, [id number] 12:33:00 Test Item Value Reference Range Comments ALBUMIN FRACTION (BEAKER) 2.7 g/dL 3.5-5.5 (test nbmb=435) ALPHA 1 FRACTION (BEAKER) 0.4 g/dL 0.2-0.4 (test nyfn=520) ALPHA 2 FRACTION (BEAKER) 1.1 g/dL 0.5-0.9 (test goqw=328) BETA FRACTION (BEAKER) (test 1.0 g/dL 0.6-1.1 fkwk=785) GAMMA GLOBULIN FRACTION 1.2 g/dL 0.7-1.7 (BEAKER) (test kmdq=405) INTERPRETATION-119 (BEAKER) Pattern suggestive of renal (test kiex=5813) protein loss coupled with acute and chronic inflammation. No monoclonal bands detected. [id number] (BEAKER) Gina Meredith MD (test iviu=1608) (electronic signature) PROTEIN TOTAL SERUM, SPEP 6.4 gm/dL 6.0-8.3 (BEAKER) (test kwuj=4819) POCT-GLUCOSE [id number] 11:28:00 Test Item Value Reference Range Comments POC-GLUCOSE METER (BEAKER) 224 mg/dL 70-110 TESTED AT [facility] [address] [facility] (test ltuh=8349) [facility] [address] POCT-GLUCOSE [id number] 09:01:00 Test Item Value Reference Range Comments POC-GLUCOSE METER (BEAKER) 203 mg/dL 70-110 TESTED AT [facility] [address] [facility] (test iesq=7729) [facility] [address] BASIC METABOLIC [id number] 07:26:00 Test Item Value Reference Range Comments SODIUM (BEAKER) (test 132 meq/L 136-145 cwkb=216) POTASSIUM (BEAKER) (test 3.9 meq/L 3.5-5.1 pked=619) CHLORIDE (BEAKER) (test 103 meq/L 98-107 tutf=664) CO2 (BEAKER) (test 19 meq/L 22-29 dzie=664) BLOOD UREA NITROGEN 49 mg/dL 7-21 (BEAKER) (test eycc=453) CREATININE (BEAKER) (test 1.86 mg/dL 0.57-1.25 rzyl=744) GLUCOSE RANDOM (BEAKER) 204 mg/dL 70-105 (test ocbj=449) CALCIUM (BEAKER) (test 8.4 mg/dL 8.4-10.2 bjwa=398) EGFR (BEAKER) (test 27 mL/min/1.73 sq m ESTIMATED GFR IS NOT rtiw=2247) ACCURATE CREATININE CLEARANCE IN PREDICTING GLOMERULAR FILTRATION RATE. ESTIMATED GFR IS NOT APPLICABLE FOR DIALYSIS PATIENTS. CBC W/PLT COUNT & AUTO [id number] 07:11:00 Test Item Value Reference Range Comments WHITE BLOOD CELL COUNT (BEAKER) (test pgbo=166) 9.3 K/ L 3.5-10.5 RED BLOOD CELL COUNT (BEAKER) (test srvd=306) 2.86 M/ L 3.93-5.22 HEMOGLOBIN (BEAKER) (test aear=549) 8.3 GM/DL 11.2-15.7 HEMATOCRIT (BEAKER) (test dinm=349) 25.8 % 34.1-44.9 MEAN CORPUSCULAR VOLUME (BEAKER) (test mddo=382) 90.2 fL 79.4-94.8 MEAN CORPUSCULAR HEMOGLOBIN (BEAKER) (test 29.0 pg 25.6-32.2 oeyt=487) MEAN CORPUSCULAR HEMOGLOBIN CONC (BEAKER) (test 32.2 GM/DL 32.2-35.5 ejmd=134) RED CELL DISTRIBUTION WIDTH (BEAKER) (test 16.8 % 11.7-14.4 niap=355) PLATELET COUNT (BEAKER) (test wjgh=407) 191 K/CU MM 150-450 MEAN PLATELET VOLUME (BEAKER) (test esob=204) 11.8 fL 9.4-12.3 NUCLEATED RED BLOOD CELLS (BEAKER) (test 0 /100 WBC 0-0 qbdc=692) NEUTROPHILS RELATIVE PERCENT (BEAKER) (test 77 % bptt=988) LYMPHOCYTES RELATIVE PERCENT (BEAKER) (test 11 % dfls=980) MONOCYTES RELATIVE PERCENT (BEAKER) (test 10 % jmna=575) EOSINOPHILS RELATIVE PERCENT (BEAKER) (test 0 % qtaq=077) BASOPHILS RELATIVE PERCENT (BEAKER) (test 0 % kgdo=217) NEUTROPHILS ABSOLUTE COUNT (BEAKER) (test 7.20 K/ L 1.56-6.13 hrtb=128) LYMPHOCYTES ABSOLUTE COUNT (BEAKER) (test 1.05 K/ L 1.18-3.74 qjzj=570) MONOCYTES ABSOLUTE COUNT (BEAKER) (test 0.92 K/ L 0.24-0.36 tkir=165) EOSINOPHILS ABSOLUTE COUNT (BEAKER) (test 0.03 K/ L 0.04-0.36 evbx=331) BASOPHILS ABSOLUTE COUNT (BEAKER) (test 0.03 K/ L 0.01-0.08 fwlx=428) IMMATURE GRANULOCYTES-RELATIVE PERCENT (BEAKER) 1 % 0-1 (test ojya=1172) POCT-GLUCOSE [id number] 20:45:00 Test Item Value Reference Range Comments POC-GLUCOSE METER (BEAKER) 72 mg/dL 70-110 TESTED AT [address] (test cfge=7072) [facility] [address] POCT-GLUCOSE [id number] 18:17:00 Test Item Value Reference Range Comments POC-GLUCOSE METER (BEAKER) 140 mg/dL 70-110 TESTED AT [address] (test ngcf=5398) [facility] [address] POCT-GLUCOSE [id number] 14:42:00 Test Item Value Reference Range Comments POC-GLUCOSE METER (BEAKER) 104 mg/dL 70-110 TESTED AT [facility] [address] [facility] (test mlnz=1890) [facility] [address] POCT-GLUCOSE [id number] 10:54:00 Test Item Value Reference Range Comments POC-GLUCOSE METER (BEAKER) 93 mg/dL 70-110 TESTED AT [address] (test nkjd=3188) [facility] [address] POCT-GLUCOSE [id number] 08:06:00 Test Item Value Reference Range Comments POC-GLUCOSE METER (BEAKER) 136 mg/dL 70-110 TESTED AT [address] (test xkey=9599) [facility] [address] BASIC METABOLIC [id number] 07:34:00 Test Item Value Reference Range Comments SODIUM (BEAKER) (test 133 meq/L 136-145 pkwk=352) POTASSIUM (BEAKER) (test 3.8 meq/L 3.5-5.1 tffj=793) CHLORIDE (BEAKER) (test 105 meq/L 98-107 zdif=900) CO2 (BEAKER) (test 20 meq/L 22-29 lwtm=325) BLOOD UREA NITROGEN 47 mg/dL 7-21 (BEAKER) (test icvw=905) CREATININE (BEAKER) (test 1.64 mg/dL 0.57-1.25 sksr=352) GLUCOSE RANDOM (BEAKER) 111 mg/dL 70-105 (test zgty=033) CALCIUM (BEAKER) (test 8.9 mg/dL 8.4-10.2 gaqf=304) EGFR (BEAKER) (test 31 mL/min/1.73 sq m ESTIMATED GFR IS NOT svma=9887) ACCURATE CREATININE CLEARANCE IN PREDICTING GLOMERULAR FILTRATION RATE. ESTIMATED GFR IS NOT APPLICABLE FOR DIALYSIS PATIENTS. CBC W/PLT COUNT & AUTO [id number] 06:19:00 Test Item Value Reference Range Comments WHITE BLOOD CELL COUNT (BEAKER) (test eygm=457) 7.7 K/ L 3.5-10.5 RED BLOOD CELL COUNT (BEAKER) (test ftfg=371) 2.93 M/ L 3.93-5.22 HEMOGLOBIN (BEAKER) (test rjke=675) 8.8 GM/DL 11.2-15.7 HEMATOCRIT (BEAKER) (test nkmy=701) 26.4 % 34.1-44.9 MEAN CORPUSCULAR VOLUME (BEAKER) (test tmwd=185) 90.1 fL 79.4-94.8 MEAN CORPUSCULAR HEMOGLOBIN (BEAKER) (test 30.0 pg 25.6-32.2 zsnd=085) MEAN CORPUSCULAR HEMOGLOBIN CONC (BEAKER) (test 33.3 GM/DL 32.2-35.5 ygui=206) RED CELL DISTRIBUTION WIDTH (BEAKER) (test 16.9 % 11.7-14.4 eszn=939) PLATELET COUNT (BEAKER) (test zebt=747) 197 K/CU MM 150-450 MEAN PLATELET VOLUME (BEAKER) (test djdg=756) 11.8 fL 9.4-12.3 NUCLEATED RED BLOOD CELLS (BEAKER) (test 0 /100 WBC 0-0 nwse=374) NEUTROPHILS RELATIVE PERCENT (BEAKER) (test 73 % wlbg=223) LYMPHOCYTES RELATIVE PERCENT (BEAKER) (test 13 % hmsl=394) MONOCYTES RELATIVE PERCENT (BEAKER) (test 12 % uhob=802) EOSINOPHILS RELATIVE PERCENT (BEAKER) (test 1 % ivlc=166) BASOPHILS RELATIVE PERCENT (BEAKER) (test 0 % zywu=460) NEUTROPHILS ABSOLUTE COUNT (BEAKER) (test 5.64 K/ L 1.56-6.13 hkda=916) LYMPHOCYTES ABSOLUTE COUNT (BEAKER) (test 0.99 K/ L 1.18-3.74 muzx=760) MONOCYTES ABSOLUTE COUNT (BEAKER) (test 0.93 K/ L 0.24-0.36 lyaq=048) EOSINOPHILS ABSOLUTE COUNT (BEAKER) (test 0.08 K/ L 0.04-0.36 yrjt=031) BASOPHILS ABSOLUTE COUNT (BEAKER) (test 0.02 K/ L 0.01-0.08 mpjo=811) IMMATURE GRANULOCYTES-RELATIVE PERCENT (BEAKER) 1 % 0-1 (test dszm=9143) POCT-GLUCOSE [id number] 22:25:00 Test Item Value Reference Range Comments POC-GLUCOSE METER (BEAKER) 272 mg/dL 70-110 TESTED AT [facility] [address] [facility] (test rpnh=8018) [facility] [address] POCT-GLUCOSE [id number] 22:25:00 Test Item Value Reference Range Comments POC-GLUCOSE METER (BEAKER) 232 mg/dL 70-110 TESTED AT [address] (test bvil=7751) [place] [id number] POCT-GLUCOSE [id number] 16:09:00 Test Item Value Reference Range Comments POC-GLUCOSE METER (BEAKER) 77 mg/dL 70-110 TESTED AT [address] (test brqm=8967) [place] [address] POCT-GLUCOSE [id number] 11:33:00 Test Item Value Reference Range Comments POC-GLUCOSE METER (BEAKER) 154 mg/dL 70-110 TESTED AT [address] (test nvzs=5611) [place] [address] VRE [id number] 09:16:00 Test Item Value Reference Range Comments CULTURE (BEAKER) (test No vancomycin-resistant jmyc=4734) Enterococcus isolated POCT-GLUCOSE [id number] 07:47:00 Test Item Value Reference Range Comments POC-GLUCOSE METER (BEAKER) 130 mg/dL 70-110 TESTED AT [address] (test boqh=5396) [place] [address] BASIC METABOLIC [id number] 05:38:00 Test Item Value Reference Range Comments SODIUM (BEAKER) (test 133 meq/L 136-145 pqmq=769) POTASSIUM (BEAKER) (test 4.1 meq/L 3.5-5.1 lpkv=207) CHLORIDE (BEAKER) (test 105 meq/L 98-107 ljbw=338) CO2 (BEAKER) (test 17 meq/L 22-29 mapv=838) BLOOD UREA NITROGEN 56 mg/dL 7-21 (BEAKER) (test pcaj=233) CREATININE (BEAKER) (test 1.68 mg/dL 0.57-1.25 nldp=724) GLUCOSE RANDOM (BEAKER) 115 mg/dL 70-105 (test uyef=064) CALCIUM (BEAKER) (test 8.7 mg/dL 8.4-10.2 hgkp=537) EGFR (BEAKER) (test 30 mL/min/1.73 sq m ESTIMATED GFR IS NOT yshw=0526) ACCURATE CREATININE CLEARANCE IN PREDICTING GLOMERULAR FILTRATION RATE. ESTIMATED GFR IS NOT APPLICABLE FOR DIALYSIS PATIENTS. CBC W/PLT COUNT & AUTO [id number] 05:19:00 Test Item Value Reference Range Comments WHITE BLOOD CELL COUNT (BEAKER) (test pzyh=404) 9.8 K/ L 3.5-10.5 RED BLOOD CELL COUNT (BEAKER) (test eyor=843) 3.09 M/ L 3.93-5.22 HEMOGLOBIN (BEAKER) (test zxsm=584) 9.0 GM/DL 11.2-15.7 HEMATOCRIT (BEAKER) (test itmc=315) 27.6 % 34.1-44.9 MEAN CORPUSCULAR VOLUME (BEAKER) (test mgef=496) 89.3 fL 79.4-94.8 MEAN CORPUSCULAR HEMOGLOBIN (BEAKER) (test 29.1 pg 25.6-32.2 cwbt=067) MEAN CORPUSCULAR HEMOGLOBIN CONC (BEAKER) (test 32.6 GM/DL 32.2-35.5 nopq=388) RED CELL DISTRIBUTION WIDTH (BEAKER) (test 17.5 % 11.7-14.4 atiq=248) PLATELET COUNT (BEAKER) (test nrcr=130) 226 K/CU MM 150-450 MEAN PLATELET VOLUME (BEAKER) (test swse=389) 12.3 fL 9.4-12.3 NUCLEATED RED BLOOD CELLS (BEAKER) (test 0 /100 WBC 0-0 odps=698) NEUTROPHILS RELATIVE PERCENT (BEAKER) (test 81 % acux=002) LYMPHOCYTES RELATIVE PERCENT (BEAKER) (test 8 % bpyc=742) MONOCYTES RELATIVE PERCENT (BEAKER) (test 10 % amjw=883) EOSINOPHILS RELATIVE PERCENT (BEAKER) (test 1 % byql=439) BASOPHILS RELATIVE PERCENT (BEAKER) (test 0 % ocvy=407) NEUTROPHILS ABSOLUTE COUNT (BEAKER) (test 7.89 K/ L 1.56-6.13 ahvq=644) LYMPHOCYTES ABSOLUTE COUNT (BEAKER) (test 0.73 K/ L 1.18-3.74 ttef=190) MONOCYTES ABSOLUTE COUNT (BEAKER) (test 0.93 K/ L 0.24-0.36 izub=321) EOSINOPHILS ABSOLUTE COUNT (BEAKER) (test 0.13 K/ L 0.04-0.36 pgkb=250) BASOPHILS ABSOLUTE COUNT (BEAKER) (test 0.03 K/ L 0.01-0.08 bbbc=626) IMMATURE GRANULOCYTES-RELATIVE PERCENT (BEAKER) 1 % 0-1 (test fzxh=5176) EOSINOPHIL SMEAR, [id number] 04:30:00 Test Item Value Reference Range Comments EOSINOPHIL SMEAR, URINE (BEAKER) (test No EOS seen No EOS seen uybr=2213) CREATININE, RANDOM [id number] 00:00:00 Test Item Value Reference Range Comments CREATININE URINE (BEAKER) (test ldwa=678) 29.1 mg/dL Reference Range: No NormalsPROTEIN, RANDOM [id number] 00:00:00 Test Item Value Reference Range Comments PROTEIN, URINE (BEAKER) (test jhhg=5973) 53 mg/dL 0-14 SODIUM, RANDOM [id number] 00:00:00 Test Item Value Reference Range Comments SODIUM URINE (BEAKER) (test xryc=581) 66 meq/L Reference Range: No NormalsURINALYSIS W/ [id number] 23:53:00 Test Item Value Reference Range Comments COLOR (BEAKER) (test nlis=830) Yellow CLARITY (BEAKER) (test ipje=907) Clear SPECIFIC GRAVITY UA (BEAKER) (test jihl=805) 1.008 1.001-1.035 PH UA (BEAKER) (test jhaw=528) 5.0 5.0-8.0 PROTEIN UA (BEAKER) (test ttvz=777) 50 mg/dL Negative GLUCOSE UA (BEAKER) (test ydcv=292) Negative Negative KETONES UA (BEAKER) (test pedn=808) Negative Negative BILIRUBIN UA (BEAKER) (test hqfo=377) Negative Negative BLOOD UA (BEAKER) (test ymep=091) Negative Negative NITRITE UA (BEAKER) (test qzrv=070) Negative Negative LEUKOCYTE ESTERASE UA (BEAKER) (test pxrb=917) Negative Negative UROBILINOGEN UA (BEAKER) (test tyrh=702) 0.2 mg/dL 0.2-1.0 RBC UA (BEAKER) (test hpbk=212) < /HPF WBC UA (BEAKER) (test nzhy=595) 6 /HPF BACTERIA (BEAKER) (test nvjs=700) Rare MUCUS (BEAKER) (test hkym=0234) Rare SQUAMOUS EPITHELIAL (BEAKER) (test nqcq=991) < /HPF AMORPHOUS CRYSTALS (BEAKER) (test xyuz=2896) Rare SOURCE(BEAKER) (test kply=2355) Urine, Voided POCT-GLUCOSE [id number] 21:26:00 Test Item Value Reference Range Comments POC-GLUCOSE METER (BEAKER) 109 mg/dL 70-110 TESTED AT [address] (test ixzz=7256) [place] [address] POCT-GLUCOSE [id number] 16:36:00 Test Item Value Reference Range Comments POC-GLUCOSE METER (BEAKER) 152 mg/dL 70-110 TESTED AT [address] (test kcjf=2762) [place] [address] [id number] 15:42:00 Test Item Value Reference Range Comments FERRITIN (BEAKER) (test cner=044) 580 ng/mL 5-275 IRON, TIBC, % SAT. (WITHOUT FERRITIN)2018-04-24 15:21:00 Test Item Value Reference Range Comments IRON (BEAKER) (test wvty=929) 19.0 ug/dL 40.0-160.0 TOTAL IRON BINDING CAPACITY (BEAKER) (test 154 ug/dL 250-450 iaxv=252) IRON % SATURATION (2) (BEAKER) (test qgeo=5325) 12 % 20-55 LACTATE DEHYDROGENASE (LDH)2018-04-24 15:19:00 Test Item Value Reference Range Comments LACTATE DEHYDROGENASE (BEAKER) (test eqpy=895) 204 U/L 125-220 PERIPHERAL BLOOD SMEAR - HOLD [id number] 15:17:00 Test Item Value Reference Range Comments PERIPHERAL SMEAR SAVE (BEAKER) (test gbyf=7177) saved RETICULOCYTE [id number] 15:04:00 Test Item Value Reference Range Comments RETICULOCYTE COUNT PCT (BEAKER) (test tynh=709) 1.7 % 0.5-1.7 POCT-GLUCOSE [id number] 12:07:00 Test Item Value Reference Range Comments POC-GLUCOSE METER (BEAKER) 181 mg/dL 70-110 TESTED AT [address] (test iujb=6140) [place] [address] WOUND CULTURE + GRAM [id number] 10:26:00 Test Item Value Reference Range Comments [facility] (test MORGANELLA MORGANII 1+ Morganella morganii nuay=6755) Amikacin (test code=1) Ampicillin + Sulbactam (test code=6) Aztreonam (test code=32) Cefepime (test code=51) Cefoxitin (test code=68) Ceftazidime (test code=27) Ceftriaxone (test code=52) Ertapenem (test code=38) Gentamicin (test code=18) Levofloxacin (test code=22) Meropenem (test code=34) Nitrofurantoin (test code=23) Piperacillin + Tazobactam (test code=29) Tetracycline (test code=2) Tobramycin (test code=25) Trimethoprim + Sulfamethoxazole (test code=47) CULTURE (BEAKER) (test METHICILLIN RESISTANT 4+ Methicillin fkhs=9418) STAPHYLOCOCCUS AUREUS resistant Staphylococcus aureus Clindamycin (test code=10) Erythromycin (test code=4) Linezolid (test code=40) Nitrofurantoin (test code=23) Oxacillin (test code=14) Rifampin (test code=43) Tetracycline (test code=2) Trimethoprim + Sulfamethoxazole (test code=47) Vancomycin (test code=13) GRAM STAIN RESULT <1+ WBCs (BEAKER) (test mkee=9871) GRAM STAIN RESULT 2+ gram negative rods (BEAKER) (test adep=046325) GRAM STAIN RESULT <1+ gram positive rods (BEAKER) (test ziqq=774777) 4+ Skin floraPOCT-GLUCOSE [id number] 07:47:00 Test Item Value Reference Range Comments POC-GLUCOSE METER (BEAKER) 128 mg/dL 70-110 TESTED AT [facility] [address] [facility] (test hslq=6739) [facility] [address] [id number] 04:27:00 Test Item Value Reference Range Comments PHOSPHORUS (BEAKER) (test mlgh=649) 3.6 mg/dL 2.3-4.7 [id number] 04:27:00 Test Item Value Reference Range Comments MAGNESIUM (BEAKER) (test ozul=334) 1.7 mg/dL 1.6-2.6 COMPREHENSIVE METABOLIC [id number] 04:27:00 Test Item Value Reference Range Comments TOTAL PROTEIN (BEAKER) 6.4 gm/dL 6.0-8.3 (test nvwz=504) ALBUMIN (BEAKER) (test 3.1 g/dL 3.5-5.0 amcu=1639) ALKALINE PHOSPHATASE 182 U/L 40-150 (BEAKER) (test yeuf=242) BILIRUBIN TOTAL (BEAKER) 0.5 mg/dL 0.2-1.2 (test crey=318) SODIUM (BEAKER) (test 133 meq/L 136-145 rowl=488) POTASSIUM (BEAKER) (test 4.5 meq/L 3.5-5.1 yujx=418) CHLORIDE (BEAKER) (test 106 meq/L 98-107 tgso=969) CO2 (BEAKER) (test 18 meq/L 22-29 tjng=944) BLOOD UREA NITROGEN 53 mg/dL 7-21 (BEAKER) (test zpbx=525) CREATININE (BEAKER) (test 1.54 mg/dL 0.57-1.25 rowx=336) GLUCOSE RANDOM (BEAKER) 128 mg/dL 70-105 (test oukm=157) CALCIUM (BEAKER) (test 8.8 mg/dL 8.4-10.2 wcme=357) AST (SGOT) (BEAKER) (test 12 U/L 5-34 gtnd=489) ALT (SGPT) (BEAKER) (test 31 U/L 6-55 pwhk=291) EGFR (BEAKER) (test 34 mL/min/1.73 sq m ESTIMATED GFR IS NOT faeb=9329) ACCURATE CREATININE CLEARANCE IN PREDICTING GLOMERULAR FILTRATION RATE. ESTIMATED GFR IS NOT APPLICABLE FOR DIALYSIS PATIENTS. CALCIUM, [id number] 04:21:00 Test Item Value Reference Range Comments CALCIUM IONIZED (BEAKER) (test cvbh=334) 1.09 mmol/L 1.12-1.27 PH, BLOOD (BEAKER) (test lwsx=8749) 7.43 CBC W/PLT COUNT & AUTO [id number] 04:02:00 Test Item Value Reference Range Comments WHITE BLOOD CELL COUNT (BEAKER) (test nrqg=466) 10.1 K/ L 3.5-10.5 RED BLOOD CELL COUNT (BEAKER) (test rcao=043) 2.34 M/ L 3.93-5.22 HEMOGLOBIN (BEAKER) (test cofa=621) 7.0 GM/DL 11.2-15.7 HEMATOCRIT (BEAKER) (test orun=975) 21.9 % 34.1-44.9 MEAN CORPUSCULAR VOLUME (BEAKER) (test hbhc=405) 93.6 fL 79.4-94.8 MEAN CORPUSCULAR HEMOGLOBIN (BEAKER) (test 29.9 pg 25.6-32.2 sjfg=857) MEAN CORPUSCULAR HEMOGLOBIN CONC (BEAKER) (test 32.0 GM/DL 32.2-35.5 yqzh=480) RED CELL DISTRIBUTION WIDTH (BEAKER) (test 16.9 % 11.7-14.4 wdfx=294) PLATELET COUNT (BEAKER) (test xtpi=593) 192 K/CU MM 150-450 MEAN PLATELET VOLUME (BEAKER) (test bohh=503) 12.3 fL 9.4-12.3 NUCLEATED RED BLOOD CELLS (BEAKER) (test 0 /100 WBC 0-0 gtnj=171) NEUTROPHILS RELATIVE PERCENT (BEAKER) (test 78 % ikuc=482) LYMPHOCYTES RELATIVE PERCENT (BEAKER) (test 12 % uprr=792) MONOCYTES RELATIVE PERCENT (BEAKER) (test 9 % nidy=504) EOSINOPHILS RELATIVE PERCENT (BEAKER) (test 1 % lewf=216) BASOPHILS RELATIVE PERCENT (BEAKER) (test 0 % msio=589) NEUTROPHILS ABSOLUTE COUNT (BEAKER) (test 7.91 K/ L 1.56-6.13 ehuf=221) LYMPHOCYTES ABSOLUTE COUNT (BEAKER) (test 1.17 K/ L 1.18-3.74 irea=656) MONOCYTES ABSOLUTE COUNT (BEAKER) (test 0.89 K/ L 0.24-0.36 xwaf=621) EOSINOPHILS ABSOLUTE COUNT (BEAKER) (test 0.07 K/ L 0.04-0.36 sihl=035) BASOPHILS ABSOLUTE COUNT (BEAKER) (test 0.03 K/ L 0.01-0.08 awaw=372) IMMATURE GRANULOCYTES-RELATIVE PERCENT (BEAKER) 1 % 0-1 (test apww=1568) POCT-GLUCOSE [id number] 22:21:00 Test Item Value Reference Range Comments POC-GLUCOSE METER (BEAKER) 100 mg/dL 70-110 TESTED AT [place] [address] [place] (test ndvu=3517) [facility] [address] POCT-GLUCOSE [id number] 16:43:00 Test Item Value Reference Range Comments POC-GLUCOSE METER (BEAKER) 200 mg/dL 70-110 TESTED AT [place] [address] [facility] (test viac=1269) [facility] [address] POCT-GLUCOSE [id number] 12:27:00 Test Item Value Reference Range Comments POC-GLUCOSE METER (BEAKER) 311 mg/dL 70-110 TESTED AT [address] (test jebv=4965) [place] [id number] POCT-GLUCOSE [id number] 09:00:00 Test Item Value Reference Range Comments POC-GLUCOSE METER (BEAKER) 132 mg/dL 70-110 TESTED AT [address] (test mqri=5218) [place] [address] WOUND CULTURE + GRAM [id number] 07:52:00 Test Item Value Reference Range Comments CULTURE (BEAKER) (test ENTEROCOCCUS SPECIES 2+ Enterococcus species ywln=7671) Ampicillin (test code=26) Linezolid (test code=40) Tetracycline (test code=2) Vancomycin (test code=13) GRAM STAIN RESULT 2+ WBCs (BEAKER) (test atak=5684) GRAM STAIN RESULT No organisms seen (BEAKER) (test jhxa=695929) GRAM STAIN RESULT No organisms seen (BEAKER) (test xktm=080633) [facility] [id number] 06:53:00 Test Item Value Reference Range Comments SODIUM (BEAKER) (test 136 meq/L 136-145 bwlv=827) POTASSIUM (BEAKER) (test 4.5 meq/L 3.5-5.1 kwso=265) CHLORIDE (BEAKER) (test 108 meq/L 98-107 xzkv=308) CO2 (BEAKER) (test 18 meq/L 22-29 xuqg=428) BLOOD UREA NITROGEN 55 mg/dL 7-21 (BEAKER) (test ovzq=480) CREATININE (BEAKER) (test 1.58 mg/dL 0.57-1.25 hgtb=970) GLUCOSE RANDOM (BEAKER) 109 mg/dL 70-105 (test cmje=843) CALCIUM (BEAKER) (test 8.7 mg/dL 8.4-10.2 tjzd=904) EGFR (BEAKER) (test 33 mL/min/1.73 sq m ESTIMATED GFR IS NOT faza=7554) ACCURATE CREATININE CLEARANCE IN PREDICTING GLOMERULAR FILTRATION RATE. ESTIMATED GFR IS NOT APPLICABLE FOR DIALYSIS PATIENTS. CBC W/PLT COUNT & AUTO [id number] 06:46:00 Test Item Value Reference Range Comments WHITE BLOOD CELL COUNT (BEAKER) (test fhwx=742) 11.5 K/ L 3.5-10.5 RED BLOOD CELL COUNT (BEAKER) (test lvvv=173) 2.57 M/ L 3.93-5.22 HEMOGLOBIN (BEAKER) (test ecuy=389) 7.6 GM/DL 11.2-15.7 HEMATOCRIT (BEAKER) (test oyrz=364) 23.9 % 34.1-44.9 MEAN CORPUSCULAR VOLUME (BEAKER) (test wrmu=321) 93.0 fL 79.4-94.8 MEAN CORPUSCULAR HEMOGLOBIN (BEAKER) (test 29.6 pg 25.6-32.2 iiuw=376) MEAN CORPUSCULAR HEMOGLOBIN CONC (BEAKER) (test 31.8 GM/DL 32.2-35.5 lnlu=026) RED CELL DISTRIBUTION WIDTH (BEAKER) (test 17.2 % 11.7-14.4 etce=945) PLATELET COUNT (BEAKER) (test ctdm=551) 193 K/CU MM 150-450 MEAN PLATELET VOLUME (BEAKER) (test uwvn=328) 12.3 fL 9.4-12.3 NUCLEATED RED BLOOD CELLS (BEAKER) (test 0 /100 WBC 0-0 ygsy=783) NEUTROPHILS RELATIVE PERCENT (BEAKER) (test 83 % paxf=899) LYMPHOCYTES RELATIVE PERCENT (BEAKER) (test 9 % aifu=871) MONOCYTES RELATIVE PERCENT (BEAKER) (test 7 % khmh=558) EOSINOPHILS RELATIVE PERCENT (BEAKER) (test 0 % infc=389) BASOPHILS RELATIVE PERCENT (BEAKER) (test 0 % cmve=637) NEUTROPHILS ABSOLUTE COUNT (BEAKER) (test 9.57 K/ L 1.56-6.13 gjrc=391) LYMPHOCYTES ABSOLUTE COUNT (BEAKER) (test 0.98 K/ L 1.18-3.74 eiay=425) MONOCYTES ABSOLUTE COUNT (BEAKER) (test 0.80 K/ L 0.24-0.36 tygo=451) EOSINOPHILS ABSOLUTE COUNT (BEAKER) (test 0.05 K/ L 0.04-0.36 itxo=546) BASOPHILS ABSOLUTE COUNT (BEAKER) (test 0.03 K/ L 0.01-0.08 kdke=789) IMMATURE GRANULOCYTES-RELATIVE PERCENT (BEAKER) 0 % 0-1 (test uvfy=9345) POCT-GLUCOSE [id number] 18:24:00 Test Item Value Reference Range Comments POC-GLUCOSE METER (BEAKER) 206 mg/dL 70-110 TESTED AT [address] (test fdak=9627) [place] [address] POCT-GLUCOSE [id number] 13:58:00 Test Item Value Reference Range Comments POC-GLUCOSE METER (BEAKER) 80 mg/dL 70-110 TESTED AT [address] (test qode=1687) [place] [address] HEMOGLOBIN [id number] 13:25:00 Test Item Value Reference Range Comments HEMOGLOBIN A1C (BEAKER) (test haec=214) 7.2 % 4.3-6.1 POCT-GLUCOSE [id number] 12:34:00 Test Item Value Reference Range Comments POC-GLUCOSE METER (BEAKER) 119 mg/dL 70-110 TESTED AT [address] (test ixmq=5152) [place] [address] TSH/FREE T4 IF [id number] 12:08:00 Test Item Value Reference Range Comments THYROID STIMULATING HORMONE (BEAKER) (test 1.04 uIU/mL 0.35-4.94 hked=351) POCT-GLUCOSE [id number] 08:16:00 Test Item Value Reference Range Comments POC-GLUCOSE METER (BEAKER) 153 mg/dL 70-110 TESTED AT [address] (test cctv=3014) [place] [address] CBC W/PLT COUNT & AUTO [id number] 07:29:00 Test Item Value Reference Range Comments WHITE BLOOD CELL COUNT (BEAKER) (test kzgb=060) 10.8 K/ L 3.5-10.5 RED BLOOD CELL COUNT (BEAKER) (test zmws=201) 2.66 M/ L 3.93-5.22 HEMOGLOBIN (BEAKER) (test qxzk=794) 7.9 GM/DL 11.2-15.7 HEMATOCRIT (BEAKER) (test ouga=720) 24.7 % 34.1-44.9 MEAN CORPUSCULAR VOLUME (BEAKER) (test mluo=203) 92.9 fL 79.4-94.8 MEAN CORPUSCULAR HEMOGLOBIN (BEAKER) (test 29.7 pg 25.6-32.2 bthz=058) MEAN CORPUSCULAR HEMOGLOBIN CONC (BEAKER) (test 32.0 GM/DL 32.2-35.5 hupl=646) RED CELL DISTRIBUTION WIDTH (BEAKER) (test 17.7 % 11.7-14.4 ukzp=922) PLATELET COUNT (BEAKER) (test knjx=556) 217 K/CU MM 150-450 MEAN PLATELET VOLUME (BEAKER) (test fhgu=714) 12.6 fL 9.4-12.3 NUCLEATED RED BLOOD CELLS (BEAKER) (test 0 /100 WBC 0-0 dbti=554) NEUTROPHILS RELATIVE PERCENT (BEAKER) (test 79 % yxac=675) LYMPHOCYTES RELATIVE PERCENT (BEAKER) (test 8 % vixd=620) MONOCYTES RELATIVE PERCENT (BEAKER) (test 9 % ydae=051) EOSINOPHILS RELATIVE PERCENT (BEAKER) (test 3 % krmf=405) BASOPHILS RELATIVE PERCENT (BEAKER) (test 1 % qsnv=129) NEUTROPHILS ABSOLUTE COUNT (BEAKER) (test 8.52 K/ L 1.56-6.13 ojvm=809) LYMPHOCYTES ABSOLUTE COUNT (BEAKER) (test 0.90 K/ L 1.18-3.74 akcl=702) MONOCYTES ABSOLUTE COUNT (BEAKER) (test 0.92 K/ L 0.24-0.36 yjqj=555) EOSINOPHILS ABSOLUTE COUNT (BEAKER) (test 0.31 K/ L 0.04-0.36 csvx=706) BASOPHILS ABSOLUTE COUNT (BEAKER) (test 0.05 K/ L 0.01-0.08 pbqn=155) IMMATURE GRANULOCYTES-RELATIVE PERCENT (BEAKER) 1 % 0-1 (test eeaa=6629) [id number] 06:06:00 Test Item Value Reference Range Comments MAGNESIUM (BEAKER) (test nsdm=016) 1.8 mg/dL 1.6-2.6 BASIC METABOLIC [id number] 06:06:00 Test Item Value Reference Range Comments SODIUM (BEAKER) (test 135 meq/L 136-145 mxfc=704) POTASSIUM (BEAKER) (test 4.6 meq/L 3.5-5.1 xjri=377) CHLORIDE (BEAKER) (test 108 meq/L 98-107 vhdc=447) CO2 (BEAKER) (test 18 meq/L 22-29 bnnk=695) BLOOD UREA NITROGEN 55 mg/dL 7-21 (BEAKER) (test srsp=881) CREATININE (BEAKER) (test 1.51 mg/dL 0.57-1.25 xaxu=677) GLUCOSE RANDOM (BEAKER) 147 mg/dL 70-105 (test knzo=420) CALCIUM (BEAKER) (test 8.8 mg/dL 8.4-10.2 huae=120) EGFR (BEAKER) (test 34 mL/min/1.73 sq m ESTIMATED GFR IS NOT rvok=5624) ACCURATE CREATININE CLEARANCE IN PREDICTING GLOMERULAR FILTRATION RATE. ESTIMATED GFR IS NOT APPLICABLE FOR DIALYSIS PATIENTS. HEPATIC FUNCTION [id number] 06:06:00 Test Item Value Reference Range Comments TOTAL PROTEIN (BEAKER) (test rxbx=786) 7.1 gm/dL 6.0-8.3 ALBUMIN (BEAKER) (test qffq=6824) 3.5 g/dL 3.5-5.0 BILIRUBIN TOTAL (BEAKER) (test xtfr=673) 0.4 mg/dL 0.2-1.2 BILIRUBIN DIRECT (BEAKER) (test wnwx=876) 0.3 mg/dL 0.1-0.5 ALKALINE PHOSPHATASE (BEAKER) (test uwyv=884) 252 U/L 40-150 AST (SGOT) (BEAKER) (test hvck=761) 25 U/L 5-34 ALT (SGPT) (BEAKER) (test atqv=658) 48 U/L 6-55 PROTHROMBIN [id number] 05:54:00 Test Item Value Reference Range Comments PROTIME (BEAKER) (test fdgh=817) 16.1 seconds 11.7-14.7 INR (BEAKER) (test ffnl=968) 1.3 <=5.9 RECOMMENDED COUMADIN/WARFARIN INR THERAPY RANGESSTANDARD DOSE: 2.0 - 3.0 Includes: PROPHYLAXIS forvenous thrombosis, systemic embolization; TREATMENT for venous thrombosis and/or pulmonary embolus.HIGH RISK: Target INR is 2.5-3.5 for patients with mechanical heart valves.POCT-GLUCOSE [id number] 20:20:00 Test Item Value Reference Range Comments POC-GLUCOSE METER (BEAKER) 221 mg/dL 70-110 TESTED AT [facility] [address] [facility] (test fjtl=2175) [facility] [address] POCT-GLUCOSE [id number] 17:23:00 Test Item Value Reference Range Comments POC-GLUCOSE METER (BEAKER) 214 mg/dL 70-110 TESTED AT [facility] [address] [facility] (test ndlo=7419) [facility] [address] BASIC METABOLIC [id number] 14:09:00 Test Item Value Reference Range Comments SODIUM (BEAKER) (test 136 meq/L 136-145 cmjv=966) POTASSIUM (BEAKER) (test 5.1 meq/L 3.5-5.1 Specimen slightly fury=505) hemolyzed CHLORIDE (BEAKER) (test 108 meq/L 98-107 rbgt=250) CO2 (BEAKER) (test 18 meq/L 22-29 ooor=777) BLOOD UREA NITROGEN 61 mg/dL 7-21 (BEAKER) (test iaun=363) CREATININE (BEAKER) (test 1.71 mg/dL 0.57-1.25 Specimen slightly aaec=800) hemolyzed GLUCOSE RANDOM (BEAKER) 214 mg/dL 70-105 (test mwfo=474) CALCIUM (BEAKER) (test 9.0 mg/dL 8.4-10.2 mbqy=453) EGFR (BEAKER) (test 30 mL/min/1.73 sq m ESTIMATED GFR IS NOT ybsq=6665) ACCURATE CREATININE CLEARANCE IN PREDICTING GLOMERULAR FILTRATION RATE. ESTIMATED GFR IS NOT APPLICABLE FOR DIALYSIS PATIENTS. CBC W/PLT COUNT & AUTO [id number] 14:05:00 Test Item Value Reference Range Comments WHITE BLOOD CELL COUNT (BEAKER) (test viki=883) 8.4 K/ L 3.5-10.5 RED BLOOD CELL COUNT (BEAKER) (test sncf=872) 2.11 M/ L 3.93-5.22 HEMOGLOBIN (BEAKER) (test qfts=402) 6.4 GM/DL 11.2-15.7 HEMATOCRIT (BEAKER) (test auby=774) 20.0 % 34.1-44.9 MEAN CORPUSCULAR VOLUME (BEAKER) (test upbx=634) 94.8 fL 79.4-94.8 MEAN CORPUSCULAR HEMOGLOBIN (BEAKER) (test 30.3 pg 25.6-32.2 qlpc=069) MEAN CORPUSCULAR HEMOGLOBIN CONC (BEAKER) (test 32.0 GM/DL 32.2-35.5 memn=300) RED CELL DISTRIBUTION WIDTH (BEAKER) (test 17.1 % 11.7-14.4 lsmi=007) PLATELET COUNT (BEAKER) (test ncjc=178) 204 K/CU MM 150-450 MEAN PLATELET VOLUME (BEAKER) (test scvy=491) 12.5 fL 9.4-12.3 NUCLEATED RED BLOOD CELLS (BEAKER) (test 0 /100 WBC 0-0 ngzi=828) NEUTROPHILS RELATIVE PERCENT (BEAKER) (test 72 % abgr=861) LYMPHOCYTES RELATIVE PERCENT (BEAKER) (test 15 % lefw=249) MONOCYTES RELATIVE PERCENT (BEAKER) (test 8 % grfv=178) EOSINOPHILS RELATIVE PERCENT (BEAKER) (test 4 % dlsa=985) BASOPHILS RELATIVE PERCENT (BEAKER) (test 1 % nujc=704) NEUTROPHILS ABSOLUTE COUNT (BEAKER) (test 6.02 K/ L 1.56-6.13 njsi=512) LYMPHOCYTES ABSOLUTE COUNT (BEAKER) (test 1.25 K/ L 1.18-3.74 mopj=627) MONOCYTES ABSOLUTE COUNT (BEAKER) (test 0.63 K/ L 0.24-0.36 absp=736) EOSINOPHILS ABSOLUTE COUNT (BEAKER) (test 0.31 K/ L 0.04-0.36 snsb=864) BASOPHILS ABSOLUTE COUNT (BEAKER) (test 0.04 K/ L 0.01-0.08 nsvp=398) IMMATURE GRANULOCYTES-RELATIVE PERCENT (BEAKER) 1 % 0-1 (test dcoa=8994) [id number] 14:05:00 Test Item Value Reference Range Comments PROTIME (BEAKER) (test xgbe=394) 15.7 seconds 11.7-14.7 INR (BEAKER) (test ilhl=738) 1.3 <=5.9 PARTIAL THROMBOPLASTIN TIME (BEAKER) (test 29.3 seconds 22.5-36.0 oqsu=298) RECOMMENDED COUMADIN/WARFARIN INR THERAPY RANGESSTANDARD DOSE: 2.0 - 3.0 Includes: PROPHYLAXIS forvenous thrombosis, systemic embolization; TREATMENT for venous thrombosis and/or pulmonary embolus.HIGH RISK: Target INR is 2.5-3.5 for patients with mechanical heart valves.AFB CULTURE + [id number] 07:07:00 Test Item Value Reference Range Comments CULTURE (BEAKER) (test No acid-fast bacilli isolated iygd=7732) in 42 days AFB SMEAR (BEAKER) (test No acid fast bacilli seen rkvg=530) AFB CULTURE + [id number] 07:07:00 Test Item Value Reference Range Comments CULTURE (BEAKER) (test No acid-fast bacilli isolated plil=7580) in 42 days AFB SMEAR (BEAKER) (test No acid fast bacilli seen rfue=466) FUNGUS CULTURE + [id number] 07:38:00 Test Item Value Reference Range Comments CULTURE (BEAKER) (test No fungus isolated in 28 days qswp=1541) FUNGUS SMEAR (BEAKER) (test No fungi seen cark=6511) FUNGUS CULTURE + [id number] 07:38:00 Test Item Value Reference Range Comments CULTURE (BEAKER) (test No fungus isolated in 28 days rgdp=2075) FUNGUS SMEAR (BEAKER) (test No fungi seen qtgb=8903) POCT-GLUCOSE [id number] 07:56:00 Test Item Value Reference Range Comments POC-GLUCOSE METER (BEAKER) 123 mg/dL 70-110 TESTED AT [address] (test uraj=8100) [facility] [address] BASIC METABOLIC [id number] 07:11:00 Test Item Value Reference Range Comments SODIUM (BEAKER) (test 139 meq/L 136-145 sfqi=948) POTASSIUM (BEAKER) (test 4.3 meq/L 3.5-5.1 uofw=744) CHLORIDE (BEAKER) (test 108 meq/L 98-107 cmgv=407) CO2 (BEAKER) (test 24 meq/L 22-29 benq=395) BLOOD UREA NITROGEN 35 mg/dL 7-21 (BEAKER) (test fgaj=069) CREATININE (BEAKER) (test 2.32 mg/dL 0.57-1.25 oxcy=670) GLUCOSE RANDOM (BEAKER) 105 mg/dL 70-105 (test omzj=907) CALCIUM (BEAKER) (test 9.1 mg/dL 8.4-10.2 brtw=258) EGFR (BEAKER) (test 21 mL/min/1.73 sq m ESTIMATED GFR IS NOT wcup=8546) ACCURATE CREATININE CLEARANCE IN PREDICTING GLOMERULAR FILTRATION RATE. ESTIMATED GFR IS NOT APPLICABLE FOR DIALYSIS PATIENTS. [id number] 07:05:00 Test Item Value Reference Range Comments MAGNESIUM (BEAKER) (test ypsy=200) 1.6 mg/dL 1.6-2.6 POCT-GLUCOSE [id number] 23:30:00 Test Item Value Reference Range Comments POC-GLUCOSE METER (BEAKER) 129 mg/dL 70-110 TESTED AT [address] (test tfzy=0298) [place] [id number] POCT-GLUCOSE [id number] 17:02:00 Test Item Value Reference Range Comments POC-GLUCOSE METER (BEAKER) 157 mg/dL 70-110 TESTED AT [address] (test yzpd=9454) [place] [id number] POCT-GLUCOSE [id number] 08:01:00 Test Item Value Reference Range Comments POC-GLUCOSE METER (BEAKER) 126 mg/dL 70-110 TESTED AT [address] (test zpjn=2652) [place] [id number] BASIC METABOLIC [id number] 07:31:00 Test Item Value Reference Range Comments SODIUM (BEAKER) (test 135 meq/L 136-145 wcnu=048) POTASSIUM (BEAKER) (test 4.7 meq/L 3.5-5.1 bcof=704) CHLORIDE (BEAKER) (test 106 meq/L 98-107 zxey=423) CO2 (BEAKER) (test 24 meq/L 22-29 ayhq=420) BLOOD UREA NITROGEN 35 mg/dL 7-21 (BEAKER) (test tccs=858) CREATININE (BEAKER) (test 2.47 mg/dL 0.57-1.25 kopn=364) GLUCOSE RANDOM (BEAKER) 107 mg/dL 70-105 (test ugkp=183) CALCIUM (BEAKER) (test 8.8 mg/dL 8.4-10.2 dqhk=016) EGFR (BEAKER) (test 20 mL/min/1.73 sq m ESTIMATED GFR IS NOT oizz=2548) ACCURATE CREATININE CLEARANCE IN PREDICTING GLOMERULAR FILTRATION RATE. ESTIMATED GFR IS NOT APPLICABLE FOR DIALYSIS PATIENTS. [id number] 07:29:00 Test Item Value Reference Range Comments MAGNESIUM (BEAKER) (test jvvi=288) 1.7 mg/dL 1.6-2.6 CBC W/PLT COUNT & AUTO [id number] 06:43:00 Test Item Value Reference Range Comments WHITE BLOOD CELL COUNT (BEAKER) (test qlzb=884) 6.5 K/ L 3.5-10.5 RED BLOOD CELL COUNT (BEAKER) (test hwkz=603) 2.91 M/ L 3.93-5.22 HEMOGLOBIN (BEAKER) (test jnyq=297) 8.6 GM/DL 11.2-15.7 HEMATOCRIT (BEAKER) (test ofne=511) 27.4 % 34.1-44.9 MEAN CORPUSCULAR VOLUME (BEAKER) (test qmda=190) 94.2 fL 79.4-94.8 MEAN CORPUSCULAR HEMOGLOBIN (BEAKER) (test 29.6 pg 25.6-32.2 rfng=564) MEAN CORPUSCULAR HEMOGLOBIN CONC (BEAKER) (test 31.4 GM/DL 32.2-35.5 zomz=121) RED CELL DISTRIBUTION WIDTH (BEAKER) (test 17.2 % 11.7-14.4 ofdi=290) PLATELET COUNT (BEAKER) (test ktvv=485) 171 K/CU MM 150-450 MEAN PLATELET VOLUME (BEAKER) (test qngy=967) 12.8 fL 9.4-12.3 NUCLEATED RED BLOOD CELLS (BEAKER) (test 0 /100 WBC 0-0 gvgg=722) NEUTROPHILS RELATIVE PERCENT (BEAKER) (test 71 % wvzr=316) LYMPHOCYTES RELATIVE PERCENT (BEAKER) (test 19 % nbol=282) MONOCYTES RELATIVE PERCENT (BEAKER) (test 6 % mlpg=865) EOSINOPHILS RELATIVE PERCENT (BEAKER) (test 3 % ahpl=942) BASOPHILS RELATIVE PERCENT (BEAKER) (test 1 % gkqt=845) NEUTROPHILS ABSOLUTE COUNT (BEAKER) (test 4.61 K/ L 1.56-6.13 voyr=771) LYMPHOCYTES ABSOLUTE COUNT (BEAKER) (test 1.26 K/ L 1.18-3.74 euqk=071) MONOCYTES ABSOLUTE COUNT (BEAKER) (test 0.42 K/ L 0.24-0.36 qumz=329) EOSINOPHILS ABSOLUTE COUNT (BEAKER) (test 0.19 K/ L 0.04-0.36 qhsr=280) BASOPHILS ABSOLUTE COUNT (BEAKER) (test 0.03 K/ L 0.01-0.08 ewkj=191) IMMATURE GRANULOCYTES-RELATIVE PERCENT (BEAKER) 0 % 0-1 (test dmas=6856) POCT-GLUCOSE [id number] 21:07:00 Test Item Value Reference Range Comments POC-GLUCOSE METER (BEAKER) 116 mg/dL 70-110 TESTED AT [address] (test khoa=9143) [facility] [address] POCT-GLUCOSE [id number] 17:47:00 Test Item Value Reference Range Comments POC-GLUCOSE METER (BEAKER) 105 mg/dL 70-110 TESTED AT [address] (test ucos=1452) [facility] [address] POCT-GLUCOSE [id number] 12:14:00 Test Item Value Reference Range Comments POC-GLUCOSE METER (BEAKER) 132 mg/dL 70-110 TESTED AT [address] (test rhzd=3457) [facility] [address] POCT-GLUCOSE [id number] 08:07:00 Test Item Value Reference Range Comments POC-GLUCOSE METER (BEAKER) 115 mg/dL 70-110 TESTED AT [address] (test jstm=7995) [facility] [address] BASIC METABOLIC [id number] 06:56:00 Test Item Value Reference Range Comments SODIUM (BEAKER) (test 132 meq/L 136-145 eniv=301) POTASSIUM (BEAKER) (test 4.4 meq/L 3.5-5.1 axtz=673) CHLORIDE (BEAKER) (test 102 meq/L 98-107 gpfw=255) CO2 (BEAKER) (test 22 meq/L 22-29 axdp=490) BLOOD UREA NITROGEN 35 mg/dL 7-21 (BEAKER) (test mmgi=307) CREATININE (BEAKER) (test 2.46 mg/dL 0.57-1.25 dewv=354) GLUCOSE RANDOM (BEAKER) 111 mg/dL 70-105 (test blsq=278) CALCIUM (BEAKER) (test 8.5 mg/dL 8.4-10.2 xrgz=477) EGFR (BEAKER) (test 20 mL/min/1.73 sq m ESTIMATED GFR IS NOT iptc=7427) ACCURATE CREATININE CLEARANCE IN PREDICTING GLOMERULAR FILTRATION RATE. ESTIMATED GFR IS NOT APPLICABLE FOR DIALYSIS PATIENTS. [id number] 06:49:00 Test Item Value Reference Range Comments MAGNESIUM (BEAKER) (test mihg=985) 1.6 mg/dL 1.6-2.6 POCT-GLUCOSE [id number] 21:07:00 Test Item Value Reference Range Comments POC-GLUCOSE METER (BEAKER) 141 mg/dL 70-110 TESTED AT [address] (test fyxr=6548) [place] [address] POCT-GLUCOSE [id number] 21:04:00 Test Item Value Reference Range Comments POC-GLUCOSE METER (BEAKER) 73 mg/dL 70-110 TESTED AT [address] (test cgyl=9250) [place] [address] POCT-GLUCOSE [id number] 17:09:00 Test Item Value Reference Range Comments POC-GLUCOSE METER (BEAKER) 142 mg/dL 70-110 TESTED AT [address] (test ieoq=2759) [place] [id number] BASIC METABOLIC [id number] 07:57:00 Test Item Value Reference Range Comments SODIUM (BEAKER) (test 135 meq/L 136-145 sdyg=459) POTASSIUM (BEAKER) (test 4.5 meq/L 3.5-5.1 xitf=185) CHLORIDE (BEAKER) (test 104 meq/L 98-107 cben=638) CO2 (BEAKER) (test 22 meq/L 22-29 xgyk=882) BLOOD UREA NITROGEN 32 mg/dL 7-21 (BEAKER) (test pjkg=762) CREATININE (BEAKER) (test 2.57 mg/dL 0.57-1.25 hvdv=910) GLUCOSE RANDOM (BEAKER) 122 mg/dL 70-105 (test tfug=754) CALCIUM (BEAKER) (test 8.9 mg/dL 8.4-10.2 ylpq=600) EGFR (BEAKER) (test 19 mL/min/1.73 sq m ESTIMATED GFR IS NOT iyov=0957) ACCURATE CREATININE CLEARANCE IN PREDICTING GLOMERULAR FILTRATION RATE. ESTIMATED GFR IS NOT APPLICABLE FOR DIALYSIS PATIENTS. [id number] 07:56:00 Test Item Value Reference Range Comments MAGNESIUM (BEAKER) (test pczu=971) 2.0 mg/dL 1.6-2.6 POCT-GLUCOSE [id number] 07:35:00 Test Item Value Reference Range Comments POC-GLUCOSE METER (BEAKER) 137 mg/dL 70-110 TESTED AT [facility] [address] [facility] (test rdga=5308) [facility] [address] CBC W/PLT COUNT & AUTO [id number] 06:43:00 Test Item Value Reference Range Comments WHITE BLOOD CELL COUNT (BEAKER) (test ktna=729) 6.3 K/ L 3.5-10.5 RED BLOOD CELL COUNT (BEAKER) (test xxyp=799) 2.93 M/ L 3.93-5.22 HEMOGLOBIN (BEAKER) (test bqvc=055) 8.6 GM/DL 11.2-15.7 HEMATOCRIT (BEAKER) (test nvum=628) 27.4 % 34.1-44.9 MEAN CORPUSCULAR VOLUME (BEAKER) (test zglu=200) 93.5 fL 79.4-94.8 MEAN CORPUSCULAR HEMOGLOBIN (BEAKER) (test 29.4 pg 25.6-32.2 dcxg=021) MEAN CORPUSCULAR HEMOGLOBIN CONC (BEAKER) (test 31.4 GM/DL 32.2-35.5 gpmf=673) RED CELL DISTRIBUTION WIDTH (BEAKER) (test 16.8 % 11.7-14.4 gyvj=153) PLATELET COUNT (BEAKER) (test gmem=274) 185 K/CU MM 150-450 MEAN PLATELET VOLUME (BEAKER) (test iwvh=452) 13.5 fL 9.4-12.3 NUCLEATED RED BLOOD CELLS (BEAKER) (test 0 /100 WBC 0-0 nmcf=376) NEUTROPHILS RELATIVE PERCENT (BEAKER) (test 65 % asyp=548) LYMPHOCYTES RELATIVE PERCENT (BEAKER) (test 22 % zkel=624) MONOCYTES RELATIVE PERCENT (BEAKER) (test 9 % wbng=991) EOSINOPHILS RELATIVE PERCENT (BEAKER) (test 3 % uxxi=356) BASOPHILS RELATIVE PERCENT (BEAKER) (test 1 % wfzg=715) NEUTROPHILS ABSOLUTE COUNT (BEAKER) (test 4.11 K/ L 1.56-6.13 inep=971) LYMPHOCYTES ABSOLUTE COUNT (BEAKER) (test 1.40 K/ L 1.18-3.74 ohwu=120) MONOCYTES ABSOLUTE COUNT (BEAKER) (test 0.54 K/ L 0.24-0.36 urir=849) EOSINOPHILS ABSOLUTE COUNT (BEAKER) (test 0.21 K/ L 0.04-0.36 ygjw=628) BASOPHILS ABSOLUTE COUNT (BEAKER) (test 0.04 K/ L 0.01-0.08 ijtd=870) IMMATURE GRANULOCYTES-RELATIVE PERCENT (BEAKER) 0 % 0-1 (test mjwp=8625) POCT-GLUCOSE [id number] 22:30:00 Test Item Value Reference Range Comments POC-GLUCOSE METER (BEAKER) 152 mg/dL 70-110 TESTED AT [address] (test pomf=9294) [facility] [address] POCT-GLUCOSE [id number] 17:17:00 Test Item Value Reference Range Comments POC-GLUCOSE METER (BEAKER) 154 mg/dL 70-110 TESTED AT [address] (test kkhu=7519) [facility] [address] POCT-GLUCOSE [id number] 13:09:00 Test Item Value Reference Range Comments POC-GLUCOSE METER (BEAKER) 125 mg/dL 70-110 TESTED AT [address] (test evia=2376) [facility] [address] POCT-GLUCOSE [id number] 09:25:00 Test Item Value Reference Range Comments POC-GLUCOSE METER (BEAKER) 119 mg/dL 70-110 TESTED AT [address] (test icbq=1080) [facility] [address] BASIC METABOLIC [id number] 07:53:00 Test Item Value Reference Range Comments SODIUM (BEAKER) (test 134 meq/L 136-145 pbmp=941) POTASSIUM (BEAKER) (test 4.5 meq/L 3.5-5.1 btjc=190) CHLORIDE (BEAKER) (test 105 meq/L 98-107 snen=958) CO2 (BEAKER) (test 21 meq/L 22-29 dvju=911) BLOOD UREA NITROGEN 32 mg/dL 7-21 (BEAKER) (test nrwr=811) CREATININE (BEAKER) (test 2.49 mg/dL 0.57-1.25 sztf=061) GLUCOSE RANDOM (BEAKER) 111 mg/dL 70-105 (test cwlk=777) CALCIUM (BEAKER) (test 8.7 mg/dL 8.4-10.2 fkct=258) EGFR (BEAKER) (test 19 mL/min/1.73 sq m ESTIMATED GFR IS NOT qgjm=6871) ACCURATE CREATININE CLEARANCE IN PREDICTING GLOMERULAR FILTRATION RATE. ESTIMATED GFR IS NOT APPLICABLE FOR DIALYSIS PATIENTS. [id number] 07:47:00 Test Item Value Reference Range Comments MAGNESIUM (BEAKER) (test kejm=911) 1.4 mg/dL 1.6-2.6 CBC W/PLT COUNT & AUTO [id number] 06:42:00 Test Item Value Reference Range Comments WHITE BLOOD CELL COUNT (BEAKER) (test pqav=711) 6.5 K/ L 3.5-10.5 RED BLOOD CELL COUNT (BEAKER) (test wotl=175) 3.06 M/ L 3.93-5.22 HEMOGLOBIN (BEAKER) (test qbos=486) 9.1 GM/DL 11.2-15.7 HEMATOCRIT (BEAKER) (test dgol=073) 29.3 % 34.1-44.9 MEAN CORPUSCULAR VOLUME (BEAKER) (test mdwi=092) 95.8 fL 79.4-94.8 MEAN CORPUSCULAR HEMOGLOBIN (BEAKER) (test 29.7 pg 25.6-32.2 psdz=174) MEAN CORPUSCULAR HEMOGLOBIN CONC (BEAKER) (test 31.1 GM/DL 32.2-35.5 iiks=675) RED CELL DISTRIBUTION WIDTH (BEAKER) (test 17.1 % 11.7-14.4 umhj=574) PLATELET COUNT (BEAKER) (test loxg=510) 188 K/CU MM 150-450 MEAN PLATELET VOLUME (BEAKER) (test vunn=226) 13.1 fL 9.4-12.3 NUCLEATED RED BLOOD CELLS (BEAKER) (test 0 /100 WBC 0-0 dcfs=092) NEUTROPHILS RELATIVE PERCENT (BEAKER) (test 66 % mqqi=711) LYMPHOCYTES RELATIVE PERCENT (BEAKER) (test 21 % mxxm=592) MONOCYTES RELATIVE PERCENT (BEAKER) (test 8 % kwfl=738) EOSINOPHILS RELATIVE PERCENT (BEAKER) (test 3 % xbus=701) BASOPHILS RELATIVE PERCENT (BEAKER) (test 1 % ydon=343) NEUTROPHILS ABSOLUTE COUNT (BEAKER) (test 4.31 K/ L 1.56-6.13 awye=218) LYMPHOCYTES ABSOLUTE COUNT (BEAKER) (test 1.39 K/ L 1.18-3.74 nlxz=576) MONOCYTES ABSOLUTE COUNT (BEAKER) (test 0.55 K/ L 0.24-0.36 srzr=106) EOSINOPHILS ABSOLUTE COUNT (BEAKER) (test 0.19 K/ L 0.04-0.36 sqts=251) BASOPHILS ABSOLUTE COUNT (BEAKER) (test 0.05 K/ L 0.01-0.08 qqfl=723) IMMATURE GRANULOCYTES-RELATIVE PERCENT (BEAKER) 0 % 0-1 (test rjih=8356) POCT-GLUCOSE [id number] 22:04:00 Test Item Value Reference Range Comments POC-GLUCOSE METER (BEAKER) 114 mg/dL 70-110 TESTED AT [address] (test zamp=2807) [place] [address] POCT-GLUCOSE [id number] 16:53:00 Test Item Value Reference Range Comments POC-GLUCOSE METER (BEAKER) 232 mg/dL 70-110 TESTED AT [address] (test ddnk=0417) [place] [address] POCT-GLUCOSE [id number] 12:27:00 Test Item Value Reference Range Comments POC-GLUCOSE METER (BEAKER) 121 mg/dL 70-110 TESTED AT [address] (test alct=7383) [place] [address] POCT-GLUCOSE [id number] 09:12:00 Test Item Value Reference Range Comments POC-GLUCOSE METER (BEAKER) 94 mg/dL 70-110 TESTED AT [address] (test yxro=2365) [place] [address] POCT-GLUCOSE [id number] 09:12:00 Test Item Value Reference Range Comments POC-GLUCOSE METER (BEAKER) 113 mg/dL 70-110 TESTED AT [address] (test fhdv=0448) [place] [id number] BASIC METABOLIC [id number] 06:44:00 Test Item Value Reference Range Comments SODIUM (BEAKER) (test 136 meq/L 136-145 ectx=410) POTASSIUM (BEAKER) (test 4.6 meq/L 3.5-5.1 wgel=381) CHLORIDE (BEAKER) (test 107 meq/L 98-107 inhb=503) CO2 (BEAKER) (test 21 meq/L 22-29 vwsx=156) BLOOD UREA NITROGEN 37 mg/dL 7-21 (BEAKER) (test mfju=848) CREATININE (BEAKER) (test 2.80 mg/dL 0.57-1.25 cbcg=552) GLUCOSE RANDOM (BEAKER) 72 mg/dL 70-105 (test ggbc=760) CALCIUM (BEAKER) (test 8.7 mg/dL 8.4-10.2 lalw=758) EGFR (BEAKER) (test 17 mL/min/1.73 sq m ESTIMATED GFR IS NOT mdmb=9304) ACCURATE CREATININE CLEARANCE IN PREDICTING GLOMERULAR FILTRATION RATE. ESTIMATED GFR IS NOT APPLICABLE FOR DIALYSIS PATIENTS. [id number] 06:43:00 Test Item Value Reference Range Comments MAGNESIUM (BEAKER) (test owje=716) 1.6 mg/dL 1.6-2.6 CBC W/PLT COUNT & AUTO [id number] 06:23:00 Test Item Value Reference Range Comments WHITE BLOOD CELL COUNT (BEAKER) (test zvkw=510) 7.1 K/ L 3.5-10.5 RED BLOOD CELL COUNT (BEAKER) (test ytqi=888) 2.99 M/ L 3.93-5.22 HEMOGLOBIN (BEAKER) (test dgsd=674) 8.9 GM/DL 11.2-15.7 HEMATOCRIT (BEAKER) (test dwoz=975) 28.5 % 34.1-44.9 MEAN CORPUSCULAR VOLUME (BEAKER) (test wcql=089) 95.3 fL 79.4-94.8 MEAN CORPUSCULAR HEMOGLOBIN (BEAKER) (test 29.8 pg 25.6-32.2 vfet=574) MEAN CORPUSCULAR HEMOGLOBIN CONC (BEAKER) (test 31.2 GM/DL 32.2-35.5 kemb=373) RED CELL DISTRIBUTION WIDTH (BEAKER) (test 16.8 % 11.7-14.4 hako=912) PLATELET COUNT (BEAKER) (test itki=912) 179 K/CU MM 150-450 MEAN PLATELET VOLUME (BEAKER) (test wwdt=195) 13.3 fL 9.4-12.3 NUCLEATED RED BLOOD CELLS (BEAKER) (test 0 /100 WBC 0-0 yufw=442) NEUTROPHILS RELATIVE PERCENT (BEAKER) (test 67 % nann=272) LYMPHOCYTES RELATIVE PERCENT (BEAKER) (test 18 % kdct=073) MONOCYTES RELATIVE PERCENT (BEAKER) (test 9 % krzi=450) EOSINOPHILS RELATIVE PERCENT (BEAKER) (test 5 % achy=775) BASOPHILS RELATIVE PERCENT (BEAKER) (test 1 % qyzl=013) NEUTROPHILS ABSOLUTE COUNT (BEAKER) (test 4.70 K/ L 1.56-6.13 fljw=218) LYMPHOCYTES ABSOLUTE COUNT (BEAKER) (test 1.29 K/ L 1.18-3.74 orvq=801) MONOCYTES ABSOLUTE COUNT (BEAKER) (test 0.66 K/ L 0.24-0.36 srqx=446) EOSINOPHILS ABSOLUTE COUNT (BEAKER) (test 0.33 K/ L 0.04-0.36 ezlm=628) BASOPHILS ABSOLUTE COUNT (BEAKER) (test 0.05 K/ L 0.01-0.08 mklq=890) IMMATURE GRANULOCYTES-RELATIVE PERCENT (BEAKER) 0 % 0-1 (test avyi=0462) POCT-GLUCOSE [id number] 21:00:00 Test Item Value Reference Range Comments POC-GLUCOSE METER (BEAKER) 157 mg/dL 70-110 TESTED AT [address] (test wrgb=0555) [facility] [address] POCT-GLUCOSE [id number] 17:12:00 Test Item Value Reference Range Comments POC-GLUCOSE METER (BEAKER) 138 mg/dL 70-110 TESTED AT [address] (test vqiq=5797) [facility] [address] POCT-GLUCOSE [id number] 13:13:00 Test Item Value Reference Range Comments POC-GLUCOSE METER (BEAKER) 137 mg/dL 70-110 TESTED AT [address] (test ukwz=5044) [facility] [address] POCT-GLUCOSE [id number] 12:46:00 Test Item Value Reference Range Comments POC-GLUCOSE METER (BEAKER) 141 mg/dL 70-110 TESTED AT [address] (test ougj=3629) [facility] [address] POCT-GLUCOSE [id number] 08:25:00 Test Item Value Reference Range Comments POC-GLUCOSE METER (BEAKER) 118 mg/dL 70-110 TESTED AT [facility] [address] (test eyup=2980) [facility] [address] COMPREHENSIVE METABOLIC [id number] 07:48:00 Test Item Value Reference Range Comments TOTAL PROTEIN (BEAKER) 6.5 gm/dL 6.0-8.3 (test uvnp=234) ALBUMIN (BEAKER) (test 3.1 g/dL 3.5-5.0 hlkz=1941) ALKALINE PHOSPHATASE 134 U/L 40-150 (BEAKER) (test yzfu=407) BILIRUBIN TOTAL (BEAKER) 0.2 mg/dL 0.2-1.2 (test ymrx=633) SODIUM (BEAKER) (test 138 meq/L 136-145 hyfz=861) POTASSIUM (BEAKER) (test 4.1 meq/L 3.5-5.1 pvad=738) CHLORIDE (BEAKER) (test 108 meq/L 98-107 okpo=027) CO2 (BEAKER) (test 21 meq/L 22-29 ywvj=152) BLOOD UREA NITROGEN 38 mg/dL 7-21 (BEAKER) (test nhpz=766) CREATININE (BEAKER) (test 2.74 mg/dL 0.57-1.25 xuss=530) GLUCOSE RANDOM (BEAKER) 96 mg/dL 70-105 (test pxrt=628) CALCIUM (BEAKER) (test 8.7 mg/dL 8.4-10.2 oede=746) AST (SGOT) (BEAKER) (test 11 U/L 5-34 gzau=811) ALT (SGPT) (BEAKER) (test 11 U/L 6-55 jngd=062) EGFR (BEAKER) (test 17 mL/min/1.73 sq m ESTIMATED GFR IS NOT iswo=0259) ACCURATE CREATININE CLEARANCE IN PREDICTING GLOMERULAR FILTRATION RATE. ESTIMATED GFR IS NOT APPLICABLE FOR DIALYSIS PATIENTS. [id number] 07:42:00 Test Item Value Reference Range Comments PHOSPHORUS (BEAKER) (test vthh=063) 3.8 mg/dL 2.3-4.7 [id number] 07:42:00 Test Item Value Reference Range Comments MAGNESIUM (BEAKER) (test iujj=133) 1.7 mg/dL 1.6-2.6 CBC W/PLT COUNT & AUTO [id number] 06:49:00 Test Item Value Reference Range Comments WHITE BLOOD CELL COUNT (BEAKER) (test kemr=161) 7.0 K/ L 3.5-10.5 RED BLOOD CELL COUNT (BEAKER) (test yzqo=789) 3.12 M/ L 3.93-5.22 HEMOGLOBIN (BEAKER) (test vzcr=968) 9.2 GM/DL 11.2-15.7 HEMATOCRIT (BEAKER) (test pgqq=397) 29.2 % 34.1-44.9 MEAN CORPUSCULAR VOLUME (BEAKER) (test gduf=687) 93.6 fL 79.4-94.8 MEAN CORPUSCULAR HEMOGLOBIN (BEAKER) (test 29.5 pg 25.6-32.2 otzz=432) MEAN CORPUSCULAR HEMOGLOBIN CONC (BEAKER) (test 31.5 GM/DL 32.2-35.5 gymz=646) RED CELL DISTRIBUTION WIDTH (BEAKER) (test 17.2 % 11.7-14.4 swby=792) PLATELET COUNT (BEAKER) (test srzq=271) 191 K/CU MM 150-450 MEAN PLATELET VOLUME (BEAKER) (test kuoo=266) 12.9 fL 9.4-12.3 NUCLEATED RED BLOOD CELLS (BEAKER) (test 0 /100 WBC 0-0 dfze=470) NEUTROPHILS RELATIVE PERCENT (BEAKER) (test 62 % kmwm=962) LYMPHOCYTES RELATIVE PERCENT (BEAKER) (test 24 % jyne=302) MONOCYTES RELATIVE PERCENT (BEAKER) (test 9 % pnjh=645) EOSINOPHILS RELATIVE PERCENT (BEAKER) (test 4 % pcym=297) BASOPHILS RELATIVE PERCENT (BEAKER) (test 1 % hkun=986) NEUTROPHILS ABSOLUTE COUNT (BEAKER) (test 4.31 K/ L 1.56-6.13 fion=827) LYMPHOCYTES ABSOLUTE COUNT (BEAKER) (test 1.68 K/ L 1.18-3.74 brwh=648) MONOCYTES ABSOLUTE COUNT (BEAKER) (test 0.59 K/ L 0.24-0.36 yosz=121) EOSINOPHILS ABSOLUTE COUNT (BEAKER) (test 0.30 K/ L 0.04-0.36 vygn=728) BASOPHILS ABSOLUTE COUNT (BEAKER) (test 0.06 K/ L 0.01-0.08 fnsv=560) IMMATURE GRANULOCYTES-RELATIVE PERCENT (BEAKER) 0 % 0-1 (test iyjg=5879) CALCIUM, [id number] 06:48:00 Test Item Value Reference Range Comments CALCIUM IONIZED (BEAKER) (test adow=576) 1.11 mmol/L 1.12-1.27 PH, BLOOD (BEAKER) (test rxzt=4083) 7.37 POCT-GLUCOSE [id number] 20:29:00 Test Item Value Reference Range Comments POC-GLUCOSE METER (BEAKER) 171 mg/dL 70-110 TESTED AT [address] (test gbss=8471) [place] [address] POCT-GLUCOSE [id number] 17:26:00 Test Item Value Reference Range Comments POC-GLUCOSE METER (BEAKER) 281 mg/dL 70-110 TESTED AT [address] (test fyoi=1916) [place] [address] POCT-GLUCOSE [id number] 12:16:00 Test Item Value Reference Range Comments POC-GLUCOSE METER (BEAKER) 118 mg/dL 70-110 TESTED AT [address] (test denw=7388) [place] [address] SURGICALLY OBTAINED CULTURE + GRAM [id number] 09:26:00 Test Item Value Reference Range Comments CULTURE (BEAKER) (test 1+ Escherichia coli saad=1811) GRAM STAIN RESULT <1+ White blood cells (BEAKER) (test seen khez=2474) GRAM STAIN RESULT No organisms seen (BEAKER) (test wjby=276734) SURGICALLY OBTAINED CULTURE + GRAM [id number] 09:22:00 Test Item Value Reference Range Comments CULTURE (BEAKER) (test COAGULASE NEGATIVE 1+ Coagulase negative intu=0417) STAPHYLOCOCCUS Staphylococcus Clindamycin (test code=10) Erythromycin (test code=4) Linezolid (test code=40) Nitrofurantoin (test code=23) Oxacillin (test code=14) Rifampin (test code=43) Tetracycline (test code=2) Trimethoprim + Sulfamethoxazole (test code=47) Vancomycin (test code=13) CULTURE (BEAKER) (test 1+ Enterococcus qmsy=5975) species CULTURE (BEAKER) (test ENTEROCOCCUS SPECIES 1+ Vancomycin frzx=1078) resistant Enterococcus species Ampicillin (test code=26) Linezolid (test code=40) Tetracycline (test code=2) Vancomycin (test code=13) GRAM STAIN RESULT 2+ White blood cells (BEAKER) (test nyli=2222) seen GRAM STAIN RESULT No organisms seen (BEAKER) (test iazc=991540) BASIC METABOLIC [id number] 09:18:00 Test Item Value Reference Range Comments SODIUM (BEAKER) (test 140 meq/L 136-145 wgii=035) POTASSIUM (BEAKER) (test 4.1 meq/L 3.5-5.1 hxvh=411) CHLORIDE (BEAKER) (test 108 meq/L 98-107 bxqh=754) CO2 (BEAKER) (test 21 meq/L 22-29 joyc=001) BLOOD UREA NITROGEN 44 mg/dL 7-21 (BEAKER) (test fdep=989) CREATININE (BEAKER) (test 3.12 mg/dL 0.57-1.25 pghb=428) GLUCOSE RANDOM (BEAKER) 162 mg/dL 70-105 (test jlth=538) CALCIUM (BEAKER) (test 8.8 mg/dL 8.4-10.2 davr=364) EGFR (BEAKER) (test 15 mL/min/1.73 sq m ESTIMATED GFR IS NOT prxo=4817) ACCURATE CREATININE CLEARANCE IN PREDICTING GLOMERULAR FILTRATION RATE. ESTIMATED GFR IS NOT APPLICABLE FOR DIALYSIS PATIENTS. [id number] 09:12:00 Test Item Value Reference Range Comments MAGNESIUM (BEAKER) (test ydif=597) 1.8 mg/dL 1.6-2.6 POCT-GLUCOSE [id number] 07:42:00 Test Item Value Reference Range Comments POC-GLUCOSE METER (BEAKER) 174 mg/dL 70-110 TESTED AT [facility] [address] [facility] (test fzbv=5642) [facility] [address] CBC W/PLT COUNT & AUTO [id number] 07:23:00 Test Item Value Reference Range Comments WHITE BLOOD CELL COUNT (BEAKER) (test rasv=067) 7.5 K/ L 3.5-10.5 RED BLOOD CELL COUNT (BEAKER) (test mrqx=431) 3.21 M/ L 3.93-5.22 HEMOGLOBIN (BEAKER) (test dwgs=893) 9.4 GM/DL 11.2-15.7 HEMATOCRIT (BEAKER) (test rxev=133) 29.9 % 34.1-44.9 MEAN CORPUSCULAR VOLUME (BEAKER) (test ynfe=248) 93.1 fL 79.4-94.8 MEAN CORPUSCULAR HEMOGLOBIN (BEAKER) (test 29.3 pg 25.6-32.2 uwqe=144) MEAN CORPUSCULAR HEMOGLOBIN CONC (BEAKER) (test 31.4 GM/DL 32.2-35.5 vksf=595) RED CELL DISTRIBUTION WIDTH (BEAKER) (test 17.3 % 11.7-14.4 fihn=089) PLATELET COUNT (BEAKER) (test jtcd=511) 205 K/CU MM 150-450 MEAN PLATELET VOLUME (BEAKER) (test uqyp=023) 13.4 fL 9.4-12.3 NUCLEATED RED BLOOD CELLS (BEAKER) (test 0 /100 WBC 0-0 oloe=169) NEUTROPHILS RELATIVE PERCENT (BEAKER) (test 74 % wopl=586) LYMPHOCYTES RELATIVE PERCENT (BEAKER) (test 14 % fqqg=127) MONOCYTES RELATIVE PERCENT (BEAKER) (test 7 % cihk=970) EOSINOPHILS RELATIVE PERCENT (BEAKER) (test 3 % qftb=185) BASOPHILS RELATIVE PERCENT (BEAKER) (test 1 % ldbc=233) NEUTROPHILS ABSOLUTE COUNT (BEAKER) (test 5.56 K/ L 1.56-6.13 oeis=892) LYMPHOCYTES ABSOLUTE COUNT (BEAKER) (test 1.08 K/ L 1.18-3.74 wbeb=239) MONOCYTES ABSOLUTE COUNT (BEAKER) (test 0.53 K/ L 0.24-0.36 jvph=797) EOSINOPHILS ABSOLUTE COUNT (BEAKER) (test 0.25 K/ L 0.04-0.36 npfw=696) BASOPHILS ABSOLUTE COUNT (BEAKER) (test 0.05 K/ L 0.01-0.08 tzsa=937) IMMATURE GRANULOCYTES-RELATIVE PERCENT (BEAKER) 0 % 0-1 (test teej=2532) POCT-GLUCOSE [id number] 21:10:00 Test Item Value Reference Range Comments POC-GLUCOSE METER (BEAKER) 183 mg/dL 70-110 TESTED AT [facility] [address] [facility] (test gezt=7157) [facility] [address] POCT-GLUCOSE [id number] 18:32:00 Test Item Value Reference Range Comments POC-GLUCOSE METER (BEAKER) 116 mg/dL 70-110 TESTED AT [facility] [address] [facility] (test sbyo=2713) [facility] [address] POCT-GLUCOSE [id number] 13:22:00 Test Item Value Reference Range Comments POC-GLUCOSE METER (BEAKER) 151 mg/dL 70-110 TESTED AT [facility] [address] [facility] (test onka=2144) [place] [id number] POCT-GLUCOSE [id number] 10:11:00 Test Item Value Reference Range Comments POC-GLUCOSE METER (BEAKER) 133 mg/dL 70-110 TESTED AT [address] (test hsqp=6672) [place] [id number] SURGICALLY OBTAINED CULTURE + GRAM [id number] 10:02:00 Test Item Value Reference Range Comments CULTURE (BEAKER) <1+ Same organism has been (test tgda=4653) isolated from cultures(s) of the same body site and collection date. Repeat identification and susceptibility testing performed only after consultation with the clinical microbiology laboratory.Vancomycin resistant Enterococcus species GRAM STAIN RESULT <1+ White blood cells (BEAKER) (test seen ysxi=7518) GRAM STAIN RESULT No organisms seen (BEAKER) (test hoxw=014616) BASIC METABOLIC [id number] 07:36:00 Test Item Value Reference Range Comments SODIUM (BEAKER) (test 145 meq/L 136-145 gmip=525) POTASSIUM (BEAKER) (test 3.6 meq/L 3.5-5.1 iyzz=676) CHLORIDE (BEAKER) (test 111 meq/L 98-107 bmqy=832) CO2 (BEAKER) (test 21 meq/L 22-29 yiqm=151) BLOOD UREA NITROGEN 37 mg/dL 7-21 (BEAKER) (test qwtv=245) CREATININE (BEAKER) (test 2.51 mg/dL 0.57-1.25 oilf=182) GLUCOSE RANDOM (BEAKER) 89 mg/dL 70-105 (test hoid=515) CALCIUM (BEAKER) (test 7.8 mg/dL 8.4-10.2 pjnt=640) EGFR (BEAKER) (test 19 mL/min/1.73 sq m ESTIMATED GFR IS NOT wmhc=3187) ACCURATE CREATININE CLEARANCE IN PREDICTING GLOMERULAR FILTRATION RATE. ESTIMATED GFR IS NOT APPLICABLE FOR DIALYSIS PATIENTS. [id number] 07:35:00 Test Item Value Reference Range Comments MAGNESIUM (BEAKER) (test xwco=263) 1.7 mg/dL 1.6-2.6 CBC W/PLT COUNT & AUTO [id number] 06:59:00 Test Item Value Reference Range Comments WHITE BLOOD CELL COUNT (BEAKER) (test lvxj=655) 5.8 K/ L 3.5-10.5 RED BLOOD CELL COUNT (BEAKER) (test flhn=260) 2.74 M/ L 3.93-5.22 HEMOGLOBIN (BEAKER) (test yoqy=516) 8.1 GM/DL 11.2-15.7 HEMATOCRIT (BEAKER) (test jhmr=381) 25.6 % 34.1-44.9 MEAN CORPUSCULAR VOLUME (BEAKER) (test rsbr=015) 93.4 fL 79.4-94.8 MEAN CORPUSCULAR HEMOGLOBIN (BEAKER) (test 29.6 pg 25.6-32.2 havy=832) MEAN CORPUSCULAR HEMOGLOBIN CONC (BEAKER) (test 31.6 GM/DL 32.2-35.5 xnri=251) RED CELL DISTRIBUTION WIDTH (BEAKER) (test 17.7 % 11.7-14.4 sxjj=344) PLATELET COUNT (BEAKER) (test ymcs=600) 174 K/CU MM 150-450 MEAN PLATELET VOLUME (BEAKER) (test svir=617) 13.0 fL 9.4-12.3 NUCLEATED RED BLOOD CELLS (BEAKER) (test 0 /100 WBC 0-0 czfh=015) NEUTROPHILS RELATIVE PERCENT (BEAKER) (test 65 % nkne=730) LYMPHOCYTES RELATIVE PERCENT (BEAKER) (test 18 % rfoy=713) MONOCYTES RELATIVE PERCENT (BEAKER) (test 10 % drhv=579) EOSINOPHILS RELATIVE PERCENT (BEAKER) (test 5 % ifvu=179) BASOPHILS RELATIVE PERCENT (BEAKER) (test 1 % cefl=025) NEUTROPHILS ABSOLUTE COUNT (BEAKER) (test 3.73 K/ L 1.56-6.13 acdr=391) LYMPHOCYTES ABSOLUTE COUNT (BEAKER) (test 1.05 K/ L 1.18-3.74 drlv=009) MONOCYTES ABSOLUTE COUNT (BEAKER) (test 0.58 K/ L 0.24-0.36 yqyl=097) EOSINOPHILS ABSOLUTE COUNT (BEAKER) (test 0.29 K/ L 0.04-0.36 lrgv=006) BASOPHILS ABSOLUTE COUNT (BEAKER) (test 0.06 K/ L 0.01-0.08 exxy=662) IMMATURE GRANULOCYTES-RELATIVE PERCENT (BEAKER) 1 % 0-1 (test fszo=5799) ANAEROBIC [id number] 04:29:00 Test Item Value Reference Range Comments CULTURE (BEAKER) (test oggf=1631) No anaerobes isolated ANAEROBIC [id number] 04:29:00 Test Item Value Reference Range Comments CULTURE (BEAKER) (test mlfk=6213) No anaerobes isolated ANAEROBIC [id number] 04:29:00 Test Item Value Reference Range Comments CULTURE (BEAKER) (test nmkc=9586) No anaerobes isolated POCT-GLUCOSE [id number] 21:20:00 Test Item Value Reference Range Comments POC-GLUCOSE METER (BEAKER) 122 mg/dL 70-110 TESTED AT [address] (test uyeh=6346) [place] [address] POCT-GLUCOSE [id number] 17:29:00 Test Item Value Reference Range Comments POC-GLUCOSE METER (BEAKER) 173 mg/dL 70-110 TESTED AT [address] (test lacm=8834) [place] [address] POCT-GLUCOSE [id number] 12:15:00 Test Item Value Reference Range Comments POC-GLUCOSE METER (BEAKER) 125 mg/dL 70-110 TESTED AT [address] (test cnjz=0740) [place] [address] POCT-GLUCOSE [id number] 12:12:00 Test Item Value Reference Range Comments POC-GLUCOSE METER (BEAKER) 94 mg/dL 70-110 TESTED AT [address] (test dirt=1222) [place] [id number] BASIC METABOLIC [id number] 06:42:00 Test Item Value Reference Range Comments SODIUM (BEAKER) (test 140 meq/L 136-145 eios=718) POTASSIUM (BEAKER) (test 4.3 meq/L 3.5-5.1 uqpc=992) CHLORIDE (BEAKER) (test 111 meq/L 98-107 nqdy=432) CO2 (BEAKER) (test 22 meq/L 22-29 qqzk=559) BLOOD UREA NITROGEN 44 mg/dL 7-21 (BEAKER) (test oslx=784) CREATININE (BEAKER) (test 2.81 mg/dL 0.57-1.25 oeco=798) GLUCOSE RANDOM (BEAKER) 78 mg/dL 70-105 (test wago=817) CALCIUM (BEAKER) (test 8.3 mg/dL 8.4-10.2 uvge=389) EGFR (BEAKER) (test 17 mL/min/1.73 sq m ESTIMATED GFR IS NOT mudl=4040) ACCURATE CREATININE CLEARANCE IN PREDICTING GLOMERULAR FILTRATION RATE. ESTIMATED GFR IS NOT APPLICABLE FOR DIALYSIS PATIENTS. [id number] 06:38:00 Test Item Value Reference Range Comments MAGNESIUM (BEAKER) (test ztix=538) 1.9 mg/dL 1.6-2.6 CBC W/PLT COUNT & AUTO [id number] 06:32:00 Test Item Value Reference Range Comments WHITE BLOOD CELL COUNT (BEAKER) (test jbzv=032) 5.3 K/ L 3.5-10.5 RED BLOOD CELL COUNT (BEAKER) (test qdqc=355) 2.21 M/ L 3.93-5.22 HEMOGLOBIN (BEAKER) (test xxel=554) 6.5 GM/DL 11.2-15.7 HEMATOCRIT (BEAKER) (test pdxq=178) 21.4 % 34.1-44.9 MEAN CORPUSCULAR VOLUME (BEAKER) (test dnoh=018) 96.8 fL 79.4-94.8 MEAN CORPUSCULAR HEMOGLOBIN (BEAKER) (test 29.4 pg 25.6-32.2 ndtz=465) MEAN CORPUSCULAR HEMOGLOBIN CONC (BEAKER) (test 30.4 GM/DL 32.2-35.5 elmn=875) RED CELL DISTRIBUTION WIDTH (BEAKER) (test 17.2 % 11.7-14.4 mapb=031) PLATELET COUNT (BEAKER) (test dpwg=863) 185 K/CU MM 150-450 MEAN PLATELET VOLUME (BEAKER) (test pyhl=246) 12.6 fL 9.4-12.3 NUCLEATED RED BLOOD CELLS (BEAKER) (test 0 /100 WBC 0-0 nwyc=150) NEUTROPHILS RELATIVE PERCENT (BEAKER) (test 58 % ozse=392) LYMPHOCYTES RELATIVE PERCENT (BEAKER) (test 26 % rijh=779) MONOCYTES RELATIVE PERCENT (BEAKER) (test 9 % nypy=135) EOSINOPHILS RELATIVE PERCENT (BEAKER) (test 6 % hdzy=132) BASOPHILS RELATIVE PERCENT (BEAKER) (test 1 % xfnm=844) NEUTROPHILS ABSOLUTE COUNT (BEAKER) (test 3.11 K/ L 1.56-6.13 aeqa=142) LYMPHOCYTES ABSOLUTE COUNT (BEAKER) (test 1.36 K/ L 1.18-3.74 ucsy=275) MONOCYTES ABSOLUTE COUNT (BEAKER) (test 0.46 K/ L 0.24-0.36 bvap=982) EOSINOPHILS ABSOLUTE COUNT (BEAKER) (test 0.33 K/ L 0.04-0.36 kbso=963) BASOPHILS ABSOLUTE COUNT (BEAKER) (test 0.06 K/ L 0.01-0.08 zydm=716) IMMATURE GRANULOCYTES-RELATIVE PERCENT (BEAKER) 0 % 0-1 (test nrfv=9069) POCT-GLUCOSE [id number] 21:56:00 Test Item Value Reference Range Comments POC-GLUCOSE METER (BEAKER) 105 mg/dL 70-110 TESTED AT [address] (test elat=4281) [place] [address] POCT-GLUCOSE [id number] 12:36:00 Test Item Value Reference Range Comments POC-GLUCOSE METER (BEAKER) 85 mg/dL 70-110 TESTED AT [address] (test wkjb=2539) [place] [address] POCT-GLUCOSE [id number] 07:51:00 Test Item Value Reference Range Comments POC-GLUCOSE METER (BEAKER) 91 mg/dL 70-110 TESTED AT [address] (test hzif=9858) [place] [address] BASIC METABOLIC [id number] 07:08:00 Test Item Value Reference Range Comments SODIUM (BEAKER) (test 138 meq/L 136-145 cnfi=389) POTASSIUM (BEAKER) (test 5.1 meq/L 3.5-5.1 nfnf=806) CHLORIDE (BEAKER) (test 108 meq/L 98-107 zpkg=788) CO2 (BEAKER) (test 22 meq/L 22-29 cqbd=833) BLOOD UREA NITROGEN 48 mg/dL 7-21 (BEAKER) (test fmys=045) CREATININE (BEAKER) (test 2.83 mg/dL 0.57-1.25 chzh=180) GLUCOSE RANDOM (BEAKER) 70 mg/dL 70-105 (test nvdw=252) CALCIUM (BEAKER) (test 8.6 mg/dL 8.4-10.2 yrms=727) EGFR (BEAKER) (test 17 mL/min/1.73 sq m ESTIMATED GFR IS NOT xrui=1447) ACCURATE CREATININE CLEARANCE IN PREDICTING GLOMERULAR FILTRATION RATE. ESTIMATED GFR IS NOT APPLICABLE FOR DIALYSIS PATIENTS. [id number] 07:05:00 Test Item Value Reference Range Comments MAGNESIUM (BEAKER) (test loxs=313) 1.9 mg/dL 1.6-2.6 CBC W/PLT COUNT & AUTO [id number] 06:56:00 Test Item Value Reference Range Comments WHITE BLOOD CELL COUNT (BEAKER) (test yjav=574) 5.7 K/ L 3.5-10.5 RED BLOOD CELL COUNT (BEAKER) (test fvkl=515) 2.39 M/ L 3.93-5.22 HEMOGLOBIN (BEAKER) (test zamg=247) 7.1 GM/DL 11.2-15.7 HEMATOCRIT (BEAKER) (test ekog=888) 22.9 % 34.1-44.9 MEAN CORPUSCULAR VOLUME (BEAKER) (test hrds=325) 95.8 fL 79.4-94.8 MEAN CORPUSCULAR HEMOGLOBIN (BEAKER) (test 29.7 pg 25.6-32.2 geus=688) MEAN CORPUSCULAR HEMOGLOBIN CONC (BEAKER) (test 31.0 GM/DL 32.2-35.5 dizr=959) RED CELL DISTRIBUTION WIDTH (BEAKER) (test 17.2 % 11.7-14.4 htmq=199) PLATELET COUNT (BEAKER) (test oybt=945) 204 K/CU MM 150-450 MEAN PLATELET VOLUME (BEAKER) (test vjed=403) 13.4 fL 9.4-12.3 NUCLEATED RED BLOOD CELLS (BEAKER) (test 0 /100 WBC 0-0 lbfm=819) NEUTROPHILS RELATIVE PERCENT (BEAKER) (test 57 % utjq=652) LYMPHOCYTES RELATIVE PERCENT (BEAKER) (test 26 % wpib=322) MONOCYTES RELATIVE PERCENT (BEAKER) (test 9 % iwqc=151) EOSINOPHILS RELATIVE PERCENT (BEAKER) (test 7 % ctlo=595) BASOPHILS RELATIVE PERCENT (BEAKER) (test 1 % ijxm=927) NEUTROPHILS ABSOLUTE COUNT (BEAKER) (test 3.22 K/ L 1.56-6.13 oyyo=370) LYMPHOCYTES ABSOLUTE COUNT (BEAKER) (test 1.46 K/ L 1.18-3.74 ywhc=624) MONOCYTES ABSOLUTE COUNT (BEAKER) (test 0.53 K/ L 0.24-0.36 xqbm=183) EOSINOPHILS ABSOLUTE COUNT (BEAKER) (test 0.40 K/ L 0.04-0.36 reev=788) BASOPHILS ABSOLUTE COUNT (BEAKER) (test 0.06 K/ L 0.01-0.08 vhdm=857) IMMATURE GRANULOCYTES-RELATIVE PERCENT (BEAKER) 0 % 0-1 (test xjrc=3789) POCT-GLUCOSE [id number] 20:37:00 Test Item Value Reference Range Comments POC-GLUCOSE METER (BEAKER) 146 mg/dL 70-110 TESTED AT [address] (test twly=9408) [place] [address] POCT-GLUCOSE [id number] 17:33:00 Test Item Value Reference Range Comments POC-GLUCOSE METER (BEAKER) 169 mg/dL 70-110 TESTED AT [address] (test uhdk=1261) [place] [address] POCT-GLUCOSE [id number] 12:31:00 Test Item Value Reference Range Comments POC-GLUCOSE METER (BEAKER) 176 mg/dL 70-110 TESTED AT [address] (test lhkv=5175) [place] [address] POCT-GLUCOSE [id number] 07:33:00 Test Item Value Reference Range Comments POC-GLUCOSE METER (BEAKER) 139 mg/dL 70-110 TESTED AT [address] (test tgiy=8855) [place] [address] CBC W/PLT COUNT & AUTO [id number] 07:18:00 Test Item Value Reference Range Comments WHITE BLOOD CELL COUNT (BEAKER) (test ucyk=754) 6.0 K/ L 3.5-10.5 RED BLOOD CELL COUNT (BEAKER) (test pcgn=025) 2.26 M/ L 3.93-5.22 HEMOGLOBIN (BEAKER) (test zktn=288) 6.9 GM/DL 11.2-15.7 HEMATOCRIT (BEAKER) (test auxq=726) 21.6 % 34.1-44.9 MEAN CORPUSCULAR VOLUME (BEAKER) (test ivnf=590) 95.6 fL 79.4-94.8 MEAN CORPUSCULAR HEMOGLOBIN (BEAKER) (test 30.5 pg 25.6-32.2 gdzj=738) MEAN CORPUSCULAR HEMOGLOBIN CONC (BEAKER) (test 31.9 GM/DL 32.2-35.5 iqbk=307) RED CELL DISTRIBUTION WIDTH (BEAKER) (test 17.2 % 11.7-14.4 rmkn=875) PLATELET COUNT (BEAKER) (test wyrt=522) 191 K/CU MM 150-450 MEAN PLATELET VOLUME (BEAKER) (test anjx=727) 12.8 fL 9.4-12.3 NUCLEATED RED BLOOD CELLS (BEAKER) (test 0 /100 WBC 0-0 dnut=283) NEUTROPHILS RELATIVE PERCENT (BEAKER) (test 66 % udpr=375) LYMPHOCYTES RELATIVE PERCENT (BEAKER) (test 21 % amyf=838) MONOCYTES RELATIVE PERCENT (BEAKER) (test 8 % blpo=603) EOSINOPHILS RELATIVE PERCENT (BEAKER) (test 4 % ryim=884) BASOPHILS RELATIVE PERCENT (BEAKER) (test 1 % zdni=277) NEUTROPHILS ABSOLUTE COUNT (BEAKER) (test 3.93 K/ L 1.56-6.13 gmsc=754) LYMPHOCYTES ABSOLUTE COUNT (BEAKER) (test 1.23 K/ L 1.18-3.74 xrqt=007) MONOCYTES ABSOLUTE COUNT (BEAKER) (test 0.47 K/ L 0.24-0.36 ogef=924) EOSINOPHILS ABSOLUTE COUNT (BEAKER) (test 0.26 K/ L 0.04-0.36 lnaa=862) BASOPHILS ABSOLUTE COUNT (BEAKER) (test 0.05 K/ L 0.01-0.08 hkkn=142) IMMATURE GRANULOCYTES-RELATIVE PERCENT (BEAKER) 1 % 0-1 (test vqby=7410) BASIC METABOLIC [id number] 07:17:00 Test Item Value Reference Range Comments SODIUM (BEAKER) (test 138 meq/L 136-145 qfdv=322) POTASSIUM (BEAKER) (test 4.3 meq/L 3.5-5.1 sncz=463) CHLORIDE (BEAKER) (test 111 meq/L 98-107 flxr=937) CO2 (BEAKER) (test 21 meq/L 22-29 azjb=568) BLOOD UREA NITROGEN 45 mg/dL 7-21 (BEAKER) (test efnl=638) CREATININE (BEAKER) (test 2.67 mg/dL 0.57-1.25 bgdi=407) GLUCOSE RANDOM (BEAKER) 115 mg/dL 70-105 (test wcdu=969) CALCIUM (BEAKER) (test 7.9 mg/dL 8.4-10.2 otrs=849) EGFR (BEAKER) (test 18 mL/min/1.73 sq m ESTIMATED GFR IS NOT olov=9321) ACCURATE CREATININE CLEARANCE IN PREDICTING GLOMERULAR FILTRATION RATE. ESTIMATED GFR IS NOT APPLICABLE FOR DIALYSIS PATIENTS. [id number] 07:15:00 Test Item Value Reference Range Comments MAGNESIUM (BEAKER) (test btcd=348) 1.7 mg/dL 1.6-2.6 HEMOGLOBIN AND [id number] 06:50:00 Test Item Value Reference Range Comments HEMOGLOBIN (BEAKER) (test aysa=111) 7.0 GM/DL 11.2-15.7 HEMATOCRIT (BEAKER) (test kdof=803) 22.3 % 34.1-44.9 POCT-GLUCOSE [id number] 21:04:00 Test Item Value Reference Range Comments POC-GLUCOSE METER (BEAKER) 196 mg/dL 70-110 TESTED AT [address] (test sufm=9731) [facility] [address] POCT-GLUCOSE [id number] 17:34:00 Test Item Value Reference Range Comments POC-GLUCOSE METER (BEAKER) 114 mg/dL 70-110 TESTED AT [address] (test tdtc=4703) [facility] [address] POCT-GLUCOSE [id number] 13:54:00 Test Item Value Reference Range Comments POC-GLUCOSE METER (BEAKER) 145 mg/dL 70-110 TESTED AT [address] (test ahmv=1644) [facility] [address] POCT-GLUCOSE [id number] 08:05:00 Test Item Value Reference Range Comments POC-GLUCOSE METER (BEAKER) 128 mg/dL 70-110 TESTED AT [facility] [address] (test urkw=0876) [facility] [address] BASIC METABOLIC [id number] 05:53:00 Test Item Value Reference Range Comments SODIUM (BEAKER) (test 135 meq/L 136-145 hice=286) POTASSIUM (BEAKER) (test 4.8 meq/L 3.5-5.1 noqe=628) CHLORIDE (BEAKER) (test 104 meq/L 98-107 zzmf=588) CO2 (BEAKER) (test 22 meq/L 22-29 ulzl=646) BLOOD UREA NITROGEN 56 mg/dL 7-21 (BEAKER) (test ozgl=883) CREATININE (BEAKER) (test 3.23 mg/dL 0.57-1.25 zrzx=499) GLUCOSE RANDOM (BEAKER) 114 mg/dL 70-105 (test uybe=450) CALCIUM (BEAKER) (test 8.8 mg/dL 8.4-10.2 adgh=344) EGFR (BEAKER) (test 14 mL/min/1.73 sq m ESTIMATED GFR IS NOT zaiv=4951) ACCURATE CREATININE CLEARANCE IN PREDICTING GLOMERULAR FILTRATION RATE. ESTIMATED GFR IS NOT APPLICABLE FOR DIALYSIS PATIENTS. [id number] 05:50:00 Test Item Value Reference Range Comments MAGNESIUM (BEAKER) (test xbhb=193) 2.1 mg/dL 1.6-2.6 CBC W/PLT COUNT & AUTO [id number] 05:16:00 Test Item Value Reference Range Comments WHITE BLOOD CELL COUNT (BEAKER) (test nxxi=304) 6.1 K/ L 3.5-10.5 RED BLOOD CELL COUNT (BEAKER) (test xkoi=925) 2.57 M/ L 3.93-5.22 HEMOGLOBIN (BEAKER) (test cxuf=924) 7.6 GM/DL 11.2-15.7 HEMATOCRIT (BEAKER) (test uouq=810) 24.2 % 34.1-44.9 MEAN CORPUSCULAR VOLUME (BEAKER) (test qfhe=913) 94.2 fL 79.4-94.8 MEAN CORPUSCULAR HEMOGLOBIN (BEAKER) (test 29.6 pg 25.6-32.2 tykm=028) MEAN CORPUSCULAR HEMOGLOBIN CONC (BEAKER) (test 31.4 GM/DL 32.2-35.5 xzza=608) RED CELL DISTRIBUTION WIDTH (BEAKER) (test 17.1 % 11.7-14.4 pwpy=852) PLATELET COUNT (BEAKER) (test ruor=308) 204 K/CU MM 150-450 MEAN PLATELET VOLUME (BEAKER) (test uuvu=289) 13.0 fL 9.4-12.3 NUCLEATED RED BLOOD CELLS (BEAKER) (test 0 /100 WBC 0-0 estl=990) NEUTROPHILS RELATIVE PERCENT (BEAKER) (test 63 % rpgp=738) LYMPHOCYTES RELATIVE PERCENT (BEAKER) (test 23 % bjaq=218) MONOCYTES RELATIVE PERCENT (BEAKER) (test 9 % usok=777) EOSINOPHILS RELATIVE PERCENT (BEAKER) (test 5 % ggzn=500) BASOPHILS RELATIVE PERCENT (BEAKER) (test 1 % ivxs=898) NEUTROPHILS ABSOLUTE COUNT (BEAKER) (test 3.79 K/ L 1.56-6.13 svvk=647) LYMPHOCYTES ABSOLUTE COUNT (BEAKER) (test 1.40 K/ L 1.18-3.74 rfod=297) MONOCYTES ABSOLUTE COUNT (BEAKER) (test 0.52 K/ L 0.24-0.36 jbim=787) EOSINOPHILS ABSOLUTE COUNT (BEAKER) (test 0.27 K/ L 0.04-0.36 qsrd=479) BASOPHILS ABSOLUTE COUNT (BEAKER) (test 0.05 K/ L 0.01-0.08 uyvs=775) IMMATURE GRANULOCYTES-RELATIVE PERCENT (BEAKER) 1 % 0-1 (test jmqe=4585) POCT-GLUCOSE [id number] 21:00:00 Test Item Value Reference Range Comments POC-GLUCOSE METER (BEAKER) 316 mg/dL 70-110 Notified SAMAN HERNANDEZ/TESTED AT [facility] (test qjwp=8171) [place] [address] [facility] [address] POCT-GLUCOSE [id number] 18:59:00 Test Item Value Reference Range Comments POC-GLUCOSE METER (BEAKER) 187 mg/dL 70-110 TESTED AT [place] [address] [address] (test cfbm=3469) [facility] [address] POCT-GLUCOSE [id number] 11:25:00 Test Item Value Reference Range Comments POC-GLUCOSE METER (BEAKER) 104 mg/dL 70-110 TESTED AT [place] [address] [address] (test wcsy=7146) [facility] [address] POCT-GLUCOSE [id number] 07:42:00 Test Item Value Reference Range Comments POC-GLUCOSE METER (BEAKER) 169 mg/dL 70-110 TESTED AT [facility] [address] [facility] (test hleb=5261) [facility] [address] BASIC METABOLIC [id number] 07:04:00 Test Item Value Reference Range Comments SODIUM (BEAKER) (test 135 meq/L 136-145 yatn=702) POTASSIUM (BEAKER) (test 4.6 meq/L 3.5-5.1 djlf=797) CHLORIDE (BEAKER) (test 104 meq/L 98-107 jsor=031) CO2 (BEAKER) (test 22 meq/L 22-29 wmso=781) BLOOD UREA NITROGEN 56 mg/dL 7-21 (BEAKER) (test rgmj=876) CREATININE (BEAKER) (test 3.28 mg/dL 0.57-1.25 jngh=965) GLUCOSE RANDOM (BEAKER) 141 mg/dL 70-105 (test svly=103) CALCIUM (BEAKER) (test 8.8 mg/dL 8.4-10.2 tjym=415) EGFR (BEAKER) (test 14 mL/min/1.73 sq m ESTIMATED GFR IS NOT bjlj=9747) ACCURATE CREATININE CLEARANCE IN PREDICTING GLOMERULAR FILTRATION RATE. ESTIMATED GFR IS NOT APPLICABLE FOR DIALYSIS PATIENTS. [id number] 06:36:00 Test Item Value Reference Range Comments MAGNESIUM (BEAKER) (test inbt=432) 2.0 mg/dL 1.6-2.6 CBC W/PLT COUNT & AUTO [id number] 05:40:00 Test Item Value Reference Range Comments WHITE BLOOD CELL COUNT (BEAKER) (test onjg=354) 6.0 K/ L 3.5-10.5 RED BLOOD CELL COUNT (BEAKER) (test nylp=331) 2.57 M/ L 3.93-5.22 HEMOGLOBIN (BEAKER) (test ywdw=415) 7.6 GM/DL 11.2-15.7 HEMATOCRIT (BEAKER) (test gedz=977) 24.4 % 34.1-44.9 MEAN CORPUSCULAR VOLUME (BEAKER) (test gokk=141) 94.9 fL 79.4-94.8 MEAN CORPUSCULAR HEMOGLOBIN (BEAKER) (test 29.6 pg 25.6-32.2 rxbm=662) MEAN CORPUSCULAR HEMOGLOBIN CONC (BEAKER) (test 31.1 GM/DL 32.2-35.5 idhl=119) RED CELL DISTRIBUTION WIDTH (BEAKER) (test 17.3 % 11.7-14.4 kudh=374) PLATELET COUNT (BEAKER) (test gyat=717) 214 K/CU MM 150-450 MEAN PLATELET VOLUME (BEAKER) (test orjy=991) 13.2 fL 9.4-12.3 NUCLEATED RED BLOOD CELLS (BEAKER) (test 0 /100 WBC 0-0 waps=930) NEUTROPHILS RELATIVE PERCENT (BEAKER) (test 60 % rxua=149) LYMPHOCYTES RELATIVE PERCENT (BEAKER) (test 25 % skuw=852) MONOCYTES RELATIVE PERCENT (BEAKER) (test 10 % olfu=194) EOSINOPHILS RELATIVE PERCENT (BEAKER) (test 5 % njeb=701) BASOPHILS RELATIVE PERCENT (BEAKER) (test 1 % bpfw=583) NEUTROPHILS ABSOLUTE COUNT (BEAKER) (test 3.58 K/ L 1.56-6.13 jyfz=034) LYMPHOCYTES ABSOLUTE COUNT (BEAKER) (test 1.50 K/ L 1.18-3.74 hizv=836) MONOCYTES ABSOLUTE COUNT (BEAKER) (test 0.58 K/ L 0.24-0.36 dhoe=251) EOSINOPHILS ABSOLUTE COUNT (BEAKER) (test 0.29 K/ L 0.04-0.36 vlfb=940) BASOPHILS ABSOLUTE COUNT (BEAKER) (test 0.05 K/ L 0.01-0.08 exjw=372) IMMATURE GRANULOCYTES-RELATIVE PERCENT (BEAKER) 0 % 0-1 (test dslk=5805) POCT-GLUCOSE [id number] 21:05:00 Test Item Value Reference Range Comments POC-GLUCOSE METER (BEAKER) 205 mg/dL 70-110 TESTED AT [address] (test idvb=8359) [facility] [address] POCT-GLUCOSE [id number] 16:23:00 Test Item Value Reference Range Comments POC-GLUCOSE METER (BEAKER) 100 mg/dL 70-110 TESTED AT [address] (test sxcm=3687) [facility] [address] POCT-GLUCOSE [id number] 11:43:00 Test Item Value Reference Range Comments POC-GLUCOSE METER (BEAKER) 104 mg/dL 70-110 TESTED AT [facility] [address] [facility] (test zgyd=8976) [facility] [address] POCT-GLUCOSE [id number] 07:22:00 Test Item Value Reference Range Comments POC-GLUCOSE METER (BEAKER) 103 mg/dL 70-110 TESTED AT [place] [id number] [facility] (test bglr=0190) [facility] [address] BASIC METABOLIC [id number] 05:51:00 Test Item Value Reference Range Comments SODIUM (BEAKER) (test 137 meq/L 136-145 qhqj=933) POTASSIUM (BEAKER) (test 4.7 meq/L 3.5-5.1 ueiw=283) CHLORIDE (BEAKER) (test 106 meq/L 98-107 wuya=558) CO2 (BEAKER) (test 23 meq/L 22-29 pock=852) BLOOD UREA NITROGEN 56 mg/dL 7-21 (BEAKER) (test vgkp=222) CREATININE (BEAKER) (test 3.16 mg/dL 0.57-1.25 xhcq=688) GLUCOSE RANDOM (BEAKER) 77 mg/dL 70-105 (test vnhk=201) CALCIUM (BEAKER) (test 8.9 mg/dL 8.4-10.2 otdb=857) EGFR (BEAKER) (test 15 mL/min/1.73 sq m ESTIMATED GFR IS NOT kluj=8790) ACCURATE CREATININE CLEARANCE IN PREDICTING GLOMERULAR FILTRATION RATE. ESTIMATED GFR IS NOT APPLICABLE FOR DIALYSIS PATIENTS. [id number] 05:50:00 Test Item Value Reference Range Comments MAGNESIUM (BEAKER) (test kmyl=570) 2.1 mg/dL 1.6-2.6 CBC W/PLT COUNT & AUTO [id number] 05:28:00 Test Item Value Reference Range Comments WHITE BLOOD CELL COUNT (BEAKER) (test ciir=742) 6.2 K/ L 3.5-10.5 RED BLOOD CELL COUNT (BEAKER) (test nrtd=668) 2.65 M/ L 3.93-5.22 HEMOGLOBIN (BEAKER) (test pfir=686) 7.7 GM/DL 11.2-15.7 HEMATOCRIT (BEAKER) (test kvzo=476) 24.8 % 34.1-44.9 MEAN CORPUSCULAR VOLUME (BEAKER) (test ckcm=848) 93.6 fL 79.4-94.8 MEAN CORPUSCULAR HEMOGLOBIN (BEAKER) (test 29.1 pg 25.6-32.2 unhd=767) MEAN CORPUSCULAR HEMOGLOBIN CONC (BEAKER) (test 31.0 GM/DL 32.2-35.5 czjx=187) RED CELL DISTRIBUTION WIDTH (BEAKER) (test 17.4 % 11.7-14.4 isoc=567) PLATELET COUNT (BEAKER) (test lkuj=647) 226 K/CU MM 150-450 MEAN PLATELET VOLUME (BEAKER) (test fkns=965) 12.6 fL 9.4-12.3 NUCLEATED RED BLOOD CELLS (BEAKER) (test 0 /100 WBC 0-0 kbaq=875) NEUTROPHILS RELATIVE PERCENT (BEAKER) (test 60 % cwac=311) LYMPHOCYTES RELATIVE PERCENT (BEAKER) (test 25 % qlmi=586) MONOCYTES RELATIVE PERCENT (BEAKER) (test 9 % rvyl=091) EOSINOPHILS RELATIVE PERCENT (BEAKER) (test 5 % hebw=157) BASOPHILS RELATIVE PERCENT (BEAKER) (test 1 % mguu=877) NEUTROPHILS ABSOLUTE COUNT (BEAKER) (test 3.72 K/ L 1.56-6.13 tywc=549) LYMPHOCYTES ABSOLUTE COUNT (BEAKER) (test 1.55 K/ L 1.18-3.74 mgnr=442) MONOCYTES ABSOLUTE COUNT (BEAKER) (test 0.58 K/ L 0.24-0.36 taoj=666) EOSINOPHILS ABSOLUTE COUNT (BEAKER) (test 0.31 K/ L 0.04-0.36 pdlx=144) BASOPHILS ABSOLUTE COUNT (BEAKER) (test 0.05 K/ L 0.01-0.08 gzqd=747) IMMATURE GRANULOCYTES-RELATIVE PERCENT (BEAKER) 1 % 0-1 (test nitj=8244) POCT-GLUCOSE [id number] 20:37:00 Test Item Value Reference Range Comments POC-GLUCOSE METER (BEAKER) 210 mg/dL 70-110 TESTED AT [facility] [address] [facility] (test ruxw=9514) [facility] [address] POCT-GLUCOSE [id number] 16:37:00 Test Item Value Reference Range Comments POC-GLUCOSE METER (BEAKER) 209 mg/dL 70-110 TESTED AT [facility] [address] [facility] (test shrb=3044) [facility] [address] POCT-GLUCOSE [id number] 08:41:00 Test Item Value Reference Range Comments POC-GLUCOSE METER (BEAKER) 127 mg/dL 70-110 TESTED AT [facility] [address] [facility] (test gpok=4341) [facility] [address] BASIC METABOLIC [id number] 06:15:00 Test Item Value Reference Range Comments SODIUM (BEAKER) (test 138 meq/L 136-145 gung=302) POTASSIUM (BEAKER) (test 4.9 meq/L 3.5-5.1 dgiq=699) CHLORIDE (BEAKER) (test 106 meq/L 98-107 iluq=156) CO2 (BEAKER) (test 23 meq/L 22-29 uowf=469) BLOOD UREA NITROGEN 57 mg/dL 7-21 (BEAKER) (test bmzv=749) CREATININE (BEAKER) (test 3.35 mg/dL 0.57-1.25 xgyw=054) GLUCOSE RANDOM (BEAKER) 108 mg/dL 70-105 (test zult=535) CALCIUM (BEAKER) (test 8.9 mg/dL 8.4-10.2 zlut=206) EGFR (BEAKER) (test 14 mL/min/1.73 sq m ESTIMATED GFR IS NOT efod=7668) ACCURATE CREATININE CLEARANCE IN PREDICTING GLOMERULAR FILTRATION RATE. ESTIMATED GFR IS NOT APPLICABLE FOR DIALYSIS PATIENTS. [id number] 06:14:00 Test Item Value Reference Range Comments PHOSPHORUS (BEAKER) (test dtsq=672) 4.5 mg/dL 2.3-4.7 [id number] 06:14:00 Test Item Value Reference Range Comments MAGNESIUM (BEAKER) (test wzga=866) 2.1 mg/dL 1.6-2.6 CBC W/PLT COUNT & AUTO [id number] 05:51:00 Test Item Value Reference Range Comments WHITE BLOOD CELL COUNT (BEAKER) (test zxdd=751) 6.6 K/ L 3.5-10.5 RED BLOOD CELL COUNT (BEAKER) (test evtb=525) 2.64 M/ L 3.93-5.22 HEMOGLOBIN (BEAKER) (test orny=067) 7.6 GM/DL 11.2-15.7 HEMATOCRIT (BEAKER) (test xzto=223) 24.6 % 34.1-44.9 MEAN CORPUSCULAR VOLUME (BEAKER) (test ozzt=599) 93.2 fL 79.4-94.8 MEAN CORPUSCULAR HEMOGLOBIN (BEAKER) (test 28.8 pg 25.6-32.2 jpiy=538) MEAN CORPUSCULAR HEMOGLOBIN CONC (BEAKER) (test 30.9 GM/DL 32.2-35.5 exlh=116) RED CELL DISTRIBUTION WIDTH (BEAKER) (test 17.3 % 11.7-14.4 qmjo=652) PLATELET COUNT (BEAKER) (test wvas=375) 221 K/CU MM 150-450 MEAN PLATELET VOLUME (BEAKER) (test cyzj=213) 13.0 fL 9.4-12.3 NUCLEATED RED BLOOD CELLS (BEAKER) (test 0 /100 WBC 0-0 wymf=292) NEUTROPHILS RELATIVE PERCENT (BEAKER) (test 62 % amub=603) LYMPHOCYTES RELATIVE PERCENT (BEAKER) (test 24 % rvap=225) MONOCYTES RELATIVE PERCENT (BEAKER) (test 9 % yaqw=855) EOSINOPHILS RELATIVE PERCENT (BEAKER) (test 4 % cvfi=597) BASOPHILS RELATIVE PERCENT (BEAKER) (test 1 % qvzs=997) NEUTROPHILS ABSOLUTE COUNT (BEAKER) (test 4.09 K/ L 1.56-6.13 uodh=842) LYMPHOCYTES ABSOLUTE COUNT (BEAKER) (test 1.57 K/ L 1.18-3.74 gxqa=624) MONOCYTES ABSOLUTE COUNT (BEAKER) (test 0.61 K/ L 0.24-0.36 qcvv=748) EOSINOPHILS ABSOLUTE COUNT (BEAKER) (test 0.25 K/ L 0.04-0.36 rlkw=891) BASOPHILS ABSOLUTE COUNT (BEAKER) (test 0.06 K/ L 0.01-0.08 eqdm=452) IMMATURE GRANULOCYTES-RELATIVE PERCENT (BEAKER) 0 % 0-1 (test gmxd=5753) POCT-GLUCOSE [id number] 21:17:00 Test Item Value Reference Range Comments POC-GLUCOSE METER (BEAKER) 132 mg/dL 70-110 TESTED AT [facility] [address] [facility] (test wtpr=0524) [place] [id number] POCT-GLUCOSE [id number] 18:13:00 Test Item Value Reference Range Comments POC-GLUCOSE METER (BEAKER) 164 mg/dL 70-110 TESTED AT [address] (test qfoz=2057) [place] [id number] POCT-GLUCOSE [id number] 13:11:00 Test Item Value Reference Range Comments POC-GLUCOSE METER (BEAKER) 135 mg/dL 70-110 TESTED AT [address] (test myio=5556) [place] [id number] POCT-GLUCOSE [id number] 08:56:00 Test Item Value Reference Range Comments POC-GLUCOSE METER (BEAKER) 159 mg/dL 70-110 TESTED AT [address] (test kidq=7103) [place] [id number] POCT-GLUCOSE [id number] 07:29:00 Test Item Value Reference Range Comments POC-GLUCOSE METER (BEAKER) 142 mg/dL 70-110 TESTED AT [address] (test nxhl=0686) [place] [id number] BASIC METABOLIC [id number] 05:57:00 Test Item Value Reference Range Comments SODIUM (BEAKER) (test 137 meq/L 136-145 hsvc=139) POTASSIUM (BEAKER) (test 4.6 meq/L 3.5-5.1 ohnq=375) CHLORIDE (BEAKER) (test 105 meq/L 98-107 koeb=377) CO2 (BEAKER) (test 22 meq/L 22-29 nljm=742) BLOOD UREA NITROGEN 55 mg/dL 7-21 (BEAKER) (test ybbg=147) CREATININE (BEAKER) (test 3.36 mg/dL 0.57-1.25 vyyy=475) GLUCOSE RANDOM (BEAKER) 112 mg/dL 70-105 (test jzmy=500) CALCIUM (BEAKER) (test 9.1 mg/dL 8.4-10.2 rdqw=368) EGFR (BEAKER) (test 14 mL/min/1.73 sq m ESTIMATED GFR IS NOT toen=2714) ACCURATE CREATININE CLEARANCE IN PREDICTING GLOMERULAR FILTRATION RATE. ESTIMATED GFR IS NOT APPLICABLE FOR DIALYSIS PATIENTS. [id number] 05:53:00 Test Item Value Reference Range Comments MAGNESIUM (BEAKER) (test lovf=273) 2.0 mg/dL 1.6-2.6 CBC W/PLT COUNT & AUTO [id number] 05:30:00 Test Item Value Reference Range Comments WHITE BLOOD CELL COUNT (BEAKER) (test etkq=998) 6.6 K/ L 3.5-10.5 RED BLOOD CELL COUNT (BEAKER) (test aagx=737) 2.83 M/ L 3.93-5.22 HEMOGLOBIN (BEAKER) (test mgxd=056) 8.3 GM/DL 11.2-15.7 HEMATOCRIT (BEAKER) (test ywcw=752) 26.3 % 34.1-44.9 MEAN CORPUSCULAR VOLUME (BEAKER) (test lflm=718) 92.9 fL 79.4-94.8 MEAN CORPUSCULAR HEMOGLOBIN (BEAKER) (test 29.3 pg 25.6-32.2 tmmz=554) MEAN CORPUSCULAR HEMOGLOBIN CONC (BEAKER) (test 31.6 GM/DL 32.2-35.5 wbsv=978) RED CELL DISTRIBUTION WIDTH (BEAKER) (test 17.4 % 11.7-14.4 qube=612) PLATELET COUNT (BEAKER) (test xhuv=590) 231 K/CU MM 150-450 MEAN PLATELET VOLUME (BEAKER) (test ggwb=903) 12.4 fL 9.4-12.3 NUCLEATED RED BLOOD CELLS (BEAKER) (test 0 /100 WBC 0-0 grqj=657) NEUTROPHILS RELATIVE PERCENT (BEAKER) (test 60 % zswp=232) LYMPHOCYTES RELATIVE PERCENT (BEAKER) (test 25 % fmsy=905) MONOCYTES RELATIVE PERCENT (BEAKER) (test 10 % luki=333) EOSINOPHILS RELATIVE PERCENT (BEAKER) (test 4 % zeke=543) BASOPHILS RELATIVE PERCENT (BEAKER) (test 1 % cyrv=198) NEUTROPHILS ABSOLUTE COUNT (BEAKER) (test 3.95 K/ L 1.56-6.13 saxn=314) LYMPHOCYTES ABSOLUTE COUNT (BEAKER) (test 1.66 K/ L 1.18-3.74 jnuo=795) MONOCYTES ABSOLUTE COUNT (BEAKER) (test 0.62 K/ L 0.24-0.36 whxz=392) EOSINOPHILS ABSOLUTE COUNT (BEAKER) (test 0.27 K/ L 0.04-0.36 ewsm=991) BASOPHILS ABSOLUTE COUNT (BEAKER) (test 0.04 K/ L 0.01-0.08 mdxv=548) IMMATURE GRANULOCYTES-RELATIVE PERCENT (BEAKER) 0 % 0-1 (test ugrg=1710) POCT-GLUCOSE [id number] 21:28:00 Test Item Value Reference Range Comments POC-GLUCOSE METER (BEAKER) 149 mg/dL 70-110 TESTED AT [address] (test utbg=9544) [facility] [id number] POCT-GLUCOSE [id number] 17:40:00 Test Item Value Reference Range Comments POC-GLUCOSE METER (BEAKER) 147 mg/dL 70-110 TESTED AT [address] (test xfka=2297) [facility] [address] POCT-GLUCOSE [id number] 12:14:00 Test Item Value Reference Range Comments POC-GLUCOSE METER (BEAKER) 129 mg/dL 70-110 TESTED AT [address] (test dixb=5309) [facility] [address] POCT-GLUCOSE [id number] 07:35:00 Test Item Value Reference Range Comments POC-GLUCOSE METER (BEAKER) 125 mg/dL 70-110 TESTED AT [address] (test ctmp=2464) [facility] [address] [id number] 06:48:00 Test Item Value Reference Range Comments MAGNESIUM (BEAKER) (test ipgb=067) 2.1 mg/dL 1.6-2.6 BASIC METABOLIC [id number] 06:48:00 Test Item Value Reference Range Comments SODIUM (BEAKER) (test 136 meq/L 136-145 jyof=814) POTASSIUM (BEAKER) (test 4.7 meq/L 3.5-5.1 teud=027) CHLORIDE (BEAKER) (test 104 meq/L 98-107 sapp=195) CO2 (BEAKER) (test 24 meq/L 22-29 jtef=697) BLOOD UREA NITROGEN 58 mg/dL 7-21 (BEAKER) (test domz=581) CREATININE (BEAKER) (test 3.40 mg/dL 0.57-1.25 iubv=388) GLUCOSE RANDOM (BEAKER) 95 mg/dL 70-105 (test clzx=045) CALCIUM (BEAKER) (test 9.0 mg/dL 8.4-10.2 ohox=720) EGFR (BEAKER) (test 14 mL/min/1.73 sq m ESTIMATED GFR IS NOT nqky=3850) ACCURATE CREATININE CLEARANCE IN PREDICTING GLOMERULAR FILTRATION RATE. ESTIMATED GFR IS NOT APPLICABLE FOR DIALYSIS PATIENTS. CBC W/PLT COUNT & AUTO [id number] 06:05:00 Test Item Value Reference Range Comments WHITE BLOOD CELL COUNT (BEAKER) (test mjig=885) 6.2 K/ L 3.5-10.5 RED BLOOD CELL COUNT (BEAKER) (test wihf=751) 2.70 M/ L 3.93-5.22 HEMOGLOBIN (BEAKER) (test umet=249) 7.9 GM/DL 11.2-15.7 HEMATOCRIT (BEAKER) (test zhvd=668) 24.9 % 34.1-44.9 MEAN CORPUSCULAR VOLUME (BEAKER) (test cmms=495) 92.2 fL 79.4-94.8 MEAN CORPUSCULAR HEMOGLOBIN (BEAKER) (test 29.3 pg 25.6-32.2 rqsc=665) MEAN CORPUSCULAR HEMOGLOBIN CONC (BEAKER) (test 31.7 GM/DL 32.2-35.5 ndbg=070) RED CELL DISTRIBUTION WIDTH (BEAKER) (test 17.7 % 11.7-14.4 biie=666) PLATELET COUNT (BEAKER) (test xxtf=494) 208 K/CU MM 150-450 MEAN PLATELET VOLUME (BEAKER) (test duam=481) 12.6 fL 9.4-12.3 NUCLEATED RED BLOOD CELLS (BEAKER) (test 0 /100 WBC 0-0 cswj=986) NEUTROPHILS RELATIVE PERCENT (BEAKER) (test 60 % dmri=402) LYMPHOCYTES RELATIVE PERCENT (BEAKER) (test 22 % nkfp=103) MONOCYTES RELATIVE PERCENT (BEAKER) (test 11 % dmpe=766) EOSINOPHILS RELATIVE PERCENT (BEAKER) (test 5 % xpfh=199) BASOPHILS RELATIVE PERCENT (BEAKER) (test 1 % fnzw=894) NEUTROPHILS ABSOLUTE COUNT (BEAKER) (test 3.74 K/ L 1.56-6.13 qmgh=786) LYMPHOCYTES ABSOLUTE COUNT (BEAKER) (test 1.39 K/ L 1.18-3.74 hqfd=362) MONOCYTES ABSOLUTE COUNT (BEAKER) (test 0.68 K/ L 0.24-0.36 aayw=456) EOSINOPHILS ABSOLUTE COUNT (BEAKER) (test 0.31 K/ L 0.04-0.36 lern=732) BASOPHILS ABSOLUTE COUNT (BEAKER) (test 0.06 K/ L 0.01-0.08 cpwj=524) IMMATURE GRANULOCYTES-RELATIVE PERCENT (BEAKER) 0 % 0-1 (test fmre=3566) POCT-GLUCOSE [id number] 21:22:00 Test Item Value Reference Range Comments POC-GLUCOSE METER (BEAKER) 206 mg/dL 70-110 TESTED AT [address] (test uymw=9480) [place] [address] POCT-GLUCOSE [id number] 16:23:00 Test Item Value Reference Range Comments POC-GLUCOSE METER (BEAKER) 188 mg/dL 70-110 TESTED AT [address] (test lkzi=0167) [place] [address] POCT-GLUCOSE [id number] 12:37:00 Test Item Value Reference Range Comments POC-GLUCOSE METER (BEAKER) 172 mg/dL 70-110 TESTED AT [address] (test esfg=1978) [place] [address] POCT-GLUCOSE [id number] 11:22:00 Test Item Value Reference Range Comments POC-GLUCOSE METER (BEAKER) 193 mg/dL 70-110 TESTED AT [address] (test gwif=7459) [place] [address] POCT-GLUCOSE [id number] 08:06:00 Test Item Value Reference Range Comments POC-GLUCOSE METER (BEAKER) 143 mg/dL 70-110 TESTED AT [address] (test rvxh=8699) [place] [address] POCT-GLUCOSE [id number] 07:06:00 Test Item Value Reference Range Comments POC-GLUCOSE METER (BEAKER) 89 mg/dL 70-110 TESTED AT [address] (test esow=6952) [place] [address] BASIC METABOLIC [id number] 06:28:00 Test Item Value Reference Range Comments SODIUM (BEAKER) (test 136 meq/L 136-145 axlh=528) POTASSIUM (BEAKER) (test 4.8 meq/L 3.5-5.1 wsuo=261) CHLORIDE (BEAKER) (test 103 meq/L 98-107 rzbw=010) CO2 (BEAKER) (test 23 meq/L 22-29 kuny=321) BLOOD UREA NITROGEN 58 mg/dL 7-21 (BEAKER) (test xlpj=669) CREATININE (BEAKER) (test 3.71 mg/dL 0.57-1.25 opha=020) GLUCOSE RANDOM (BEAKER) 135 mg/dL 70-105 (test tznn=123) CALCIUM (BEAKER) (test 9.0 mg/dL 8.4-10.2 maca=180) EGFR (BEAKER) (test 12 mL/min/1.73 sq m ESTIMATED GFR IS NOT zpqr=6977) ACCURATE CREATININE CLEARANCE IN PREDICTING GLOMERULAR FILTRATION RATE. ESTIMATED GFR IS NOT APPLICABLE FOR DIALYSIS PATIENTS. [id number] 06:26:00 Test Item Value Reference Range Comments PHOSPHORUS (BEAKER) (test zqrf=855) 5.1 mg/dL 2.3-4.7 [id number] 06:26:00 Test Item Value Reference Range Comments MAGNESIUM (BEAKER) (test ujuy=287) 2.1 mg/dL 1.6-2.6 CBC W/PLT COUNT & AUTO [id number] 05:53:00 Test Item Value Reference Range Comments WHITE BLOOD CELL COUNT (BEAKER) (test hnju=061) 6.2 K/ L 3.5-10.5 RED BLOOD CELL COUNT (BEAKER) (test umme=653) 2.73 M/ L 3.93-5.22 HEMOGLOBIN (BEAKER) (test rlnz=531) 8.0 GM/DL 11.2-15.7 HEMATOCRIT (BEAKER) (test cizb=446) 25.0 % 34.1-44.9 MEAN CORPUSCULAR VOLUME (BEAKER) (test dbwh=263) 91.6 fL 79.4-94.8 MEAN CORPUSCULAR HEMOGLOBIN (BEAKER) (test 29.3 pg 25.6-32.2 bnjm=843) MEAN CORPUSCULAR HEMOGLOBIN CONC (BEAKER) (test 32.0 GM/DL 32.2-35.5 runr=386) RED CELL DISTRIBUTION WIDTH (BEAKER) (test 18.1 % 11.7-14.4 efxk=059) PLATELET COUNT (BEAKER) (test ynxx=811) 228 K/CU MM 150-450 MEAN PLATELET VOLUME (BEAKER) (test vjtt=005) 12.8 fL 9.4-12.3 NUCLEATED RED BLOOD CELLS (BEAKER) (test 0 /100 WBC 0-0 ypan=699) NEUTROPHILS RELATIVE PERCENT (BEAKER) (test 61 % qzip=164) LYMPHOCYTES RELATIVE PERCENT (BEAKER) (test 24 % ondm=279) MONOCYTES RELATIVE PERCENT (BEAKER) (test 10 % vbks=371) EOSINOPHILS RELATIVE PERCENT (BEAKER) (test 4 % ecwc=754) BASOPHILS RELATIVE PERCENT (BEAKER) (test 1 % wgxi=657) NEUTROPHILS ABSOLUTE COUNT (BEAKER) (test 3.81 K/ L 1.56-6.13 muyj=814) LYMPHOCYTES ABSOLUTE COUNT (BEAKER) (test 1.47 K/ L 1.18-3.74 boom=749) MONOCYTES ABSOLUTE COUNT (BEAKER) (test 0.64 K/ L 0.24-0.36 ymca=658) EOSINOPHILS ABSOLUTE COUNT (BEAKER) (test 0.25 K/ L 0.04-0.36 kbyu=144) BASOPHILS ABSOLUTE COUNT (BEAKER) (test 0.04 K/ L 0.01-0.08 yzte=259) IMMATURE GRANULOCYTES-RELATIVE PERCENT (BEAKER) 0 % 0-1 (test mfxk=0551) POCT-GLUCOSE [id number] 18:09:00 Test Item Value Reference Range Comments POC-GLUCOSE METER (BEAKER) 134 mg/dL 70-110 TESTED AT [address] (test dihc=4854) [place] [address] POCT-GLUCOSE [id number] 12:32:00 Test Item Value Reference Range Comments POC-GLUCOSE METER (BEAKER) 133 mg/dL 70-110 TESTED AT [address] (test wkls=6296) [place] [id number] EEG AWAKE AND [id number] 11:32:00Reason for exam:->SeizuresShould this be performed at the bedside?->YesDATE OF EXAMINATION: 02/16/18 EEG NO: 1988 CPT: 82776 ICD-10: R56.9 CONDITION OF REPORT: Thisis a [...] of epilepsy. Elbert Santiago MD Departmentof Neurology [facility] POCT-GLUCOSE [id number] 08:52:00 Test Item Value Reference Range Comments POC-GLUCOSE METER (BEAKER) 159 mg/dL 70-110 TESTED AT [facility] [address] [place] [address] (test kbxk=6879) [facility] [address] B-TYPE NATRIURETIC FACTOR (BNP)2018-02-16 06:29:00 Test Item Value Reference Range Comments B-TYPE NATRIURETIC PEPTIDE (BEAKER) (test 302 pg/mL 0-100 ldkn=802) CBC W/PLT COUNT & AUTO [id number] 06:10:00 Test Item Value Reference Range Comments WHITE BLOOD CELL COUNT (BEAKER) (test lajf=424) 5.7 K/ L 3.5-10.5 RED BLOOD CELL COUNT (BEAKER) (test cwfh=192) 2.65 M/ L 3.93-5.22 HEMOGLOBIN (BEAKER) (test lgoc=074) 7.7 GM/DL 11.2-15.7 HEMATOCRIT (BEAKER) (test guwt=961) 24.3 % 34.1-44.9 MEAN CORPUSCULAR VOLUME (BEAKER) (test qgvl=772) 91.7 fL 79.4-94.8 MEAN CORPUSCULAR HEMOGLOBIN (BEAKER) (test 29.1 pg 25.6-32.2 yvyi=705) MEAN CORPUSCULAR HEMOGLOBIN CONC (BEAKER) (test 31.7 GM/DL 32.2-35.5 ejnq=991) RED CELL DISTRIBUTION WIDTH (BEAKER) (test 18.2 % 11.7-14.4 mfdw=297) PLATELET COUNT (BEAKER) (test zxtk=890) 217 K/CU MM 150-450 MEAN PLATELET VOLUME (BEAKER) (test dlqj=822) 13.4 fL 9.4-12.3 NUCLEATED RED BLOOD CELLS (BEAKER) (test 0 /100 WBC 0-0 buze=179) NEUTROPHILS RELATIVE PERCENT (BEAKER) (test 55 % nppa=697) LYMPHOCYTES RELATIVE PERCENT (BEAKER) (test 29 % cget=379) MONOCYTES RELATIVE PERCENT (BEAKER) (test 10 % ngkk=246) EOSINOPHILS RELATIVE PERCENT (BEAKER) (test 5 % moqw=373) BASOPHILS RELATIVE PERCENT (BEAKER) (test 1 % cdan=633) NEUTROPHILS ABSOLUTE COUNT (BEAKER) (test 3.16 K/ L 1.56-6.13 uwon=314) LYMPHOCYTES ABSOLUTE COUNT (BEAKER) (test 1.65 K/ L 1.18-3.74 mvbx=974) MONOCYTES ABSOLUTE COUNT (BEAKER) (test 0.59 K/ L 0.24-0.36 adwv=061) EOSINOPHILS ABSOLUTE COUNT (BEAKER) (test 0.27 K/ L 0.04-0.36 gmyf=986) BASOPHILS ABSOLUTE COUNT (BEAKER) (test 0.04 K/ L 0.01-0.08 jniq=286) IMMATURE GRANULOCYTES-RELATIVE PERCENT (BEAKER) 0 % 0-1 (test kxea=6595) BASIC METABOLIC [id number] 06:08:00 Test Item Value Reference Range Comments SODIUM (BEAKER) (test 133 meq/L 136-145 fjeg=433) POTASSIUM (BEAKER) (test 4.6 meq/L 3.5-5.1 ddjm=276) CHLORIDE (BEAKER) (test 101 meq/L 98-107 wavh=303) CO2 (BEAKER) (test 22 meq/L 22-29 wttk=838) BLOOD UREA NITROGEN 53 mg/dL 7-21 (BEAKER) (test kewr=055) CREATININE (BEAKER) (test 3.79 mg/dL 0.57-1.25 fazi=492) GLUCOSE RANDOM (BEAKER) 131 mg/dL 70-105 (test gbqv=485) CALCIUM (BEAKER) (test 8.6 mg/dL 8.4-10.2 wvpo=392) EGFR (BEAKER) (test 12 mL/min/1.73 sq m ESTIMATED GFR IS NOT gjxu=6555) ACCURATE CREATININE CLEARANCE IN PREDICTING GLOMERULAR FILTRATION RATE. ESTIMATED GFR IS NOT APPLICABLE FOR DIALYSIS PATIENTS. [id number] 06:07:00 Test Item Value Reference Range Comments MAGNESIUM (BEAKER) (test ncju=588) 2.0 mg/dL 1.6-2.6 CT, BRAIN, WITHOUT [id number] 03:50:00FINAL REPORT CT, BRAIN, WITHOUT CONTRAST INDICATION: [...] MDReport Verified Date/Time: 02/16/2018 03:50:17 Reading Location: [facility] C013Y CT Body Reading Room POCT- GLUCOSE [id number] 21:32:00 Test Item Value Reference Range Comments POC-GLUCOSE METER (BEAKER) 130 mg/dL 70-110 TESTED AT [address] (test smva=1408) [facility] [address] POCT-GLUCOSE [id number] 16:48:00 Test Item Value Reference Range Comments POC-GLUCOSE METER (BEAKER) 90 mg/dL 70-110 TESTED AT [address] (test imac=3587) [place] [id number] HEMOGLOBIN AND [id number] 13:03:00 Test Item Value Reference Range Comments HEMOGLOBIN (BEAKER) (test lcft=277) 6.5 GM/DL 11.2-15.7 HEMATOCRIT (BEAKER) (test mnpg=064) 20.7 % 34.1-44.9 Page if hgb < 7POCT-GLUCOSE [id number] 11:14:00 Test Item Value Reference Range Comments POC-GLUCOSE METER (BEAKER) 147 mg/dL 70-110 TESTED AT [address] (test syfx=8902) [place] [id number] POCT-GLUCOSE [id number] 07:41:00 Test Item Value Reference Range Comments POC-GLUCOSE METER (BEAKER) 176 mg/dL 70-110 TESTED AT [address] (test hapf=4539) [place] [id number] BASIC METABOLIC [id number] 06:10:00 Test Item Value Reference Range Comments SODIUM (BEAKER) (test 135 meq/L 136-145 zsqd=967) POTASSIUM (BEAKER) (test 4.7 meq/L 3.5-5.1 vttg=660) CHLORIDE (BEAKER) (test 101 meq/L 98-107 ugls=927) CO2 (BEAKER) (test 23 meq/L 22-29 ffao=371) BLOOD UREA NITROGEN 50 mg/dL 7-21 (BEAKER) (test vcip=119) CREATININE (BEAKER) (test 3.78 mg/dL 0.57-1.25 jqwa=600) GLUCOSE RANDOM (BEAKER) 136 mg/dL 70-105 (test pbwu=376) CALCIUM (BEAKER) (test 8.8 mg/dL 8.4-10.2 wllp=570) EGFR (BEAKER) (test 12 mL/min/1.73 sq m ESTIMATED GFR IS NOT jyez=3082) ACCURATE CREATININE CLEARANCE IN PREDICTING GLOMERULAR FILTRATION RATE. ESTIMATED GFR IS NOT APPLICABLE FOR DIALYSIS PATIENTS. [id number] 06:02:00 Test Item Value Reference Range Comments MAGNESIUM (BEAKER) (test jwib=034) 1.9 mg/dL 1.6-2.6 CBC W/PLT COUNT & AUTO [id number] 05:47:00 Test Item Value Reference Range Comments WHITE BLOOD CELL COUNT (BEAKER) (test svwe=445) 7.1 K/ L 3.5-10.5 RED BLOOD CELL COUNT (BEAKER) (test ueyc=023) 2.15 M/ L 3.93-5.22 HEMOGLOBIN (BEAKER) (test ocww=556) 6.6 GM/DL 11.2-15.7 HEMATOCRIT (BEAKER) (test edfq=176) 21.1 % 34.1-44.9 MEAN CORPUSCULAR VOLUME (BEAKER) (test iizm=511) 98.1 fL 79.4-94.8 MEAN CORPUSCULAR HEMOGLOBIN (BEAKER) (test 30.7 pg 25.6-32.2 iled=677) MEAN CORPUSCULAR HEMOGLOBIN CONC (BEAKER) (test 31.3 GM/DL 32.2-35.5 lumd=680) RED CELL DISTRIBUTION WIDTH (BEAKER) (test 13.5 % 11.7-14.4 mpfb=647) PLATELET COUNT (BEAKER) (test mqpj=094) 206 K/CU MM 150-450 MEAN PLATELET VOLUME (BEAKER) (test yeja=540) 13.2 fL 9.4-12.3 NUCLEATED RED BLOOD CELLS (BEAKER) (test 0 /100 WBC 0-0 ipta=256) NEUTROPHILS RELATIVE PERCENT (BEAKER) (test 64 % tuxn=068) LYMPHOCYTES RELATIVE PERCENT (BEAKER) (test 21 % zhhl=083) MONOCYTES RELATIVE PERCENT (BEAKER) (test 10 % cjhi=785) EOSINOPHILS RELATIVE PERCENT (BEAKER) (test 4 % ldao=415) BASOPHILS RELATIVE PERCENT (BEAKER) (test 1 % tnbp=135) NEUTROPHILS ABSOLUTE COUNT (BEAKER) (test 4.54 K/ L 1.56-6.13 vwbm=940) LYMPHOCYTES ABSOLUTE COUNT (BEAKER) (test 1.49 K/ L 1.18-3.74 xuaq=579) MONOCYTES ABSOLUTE COUNT (BEAKER) (test 0.70 K/ L 0.24-0.36 dblz=318) EOSINOPHILS ABSOLUTE COUNT (BEAKER) (test 0.31 K/ L 0.04-0.36 rziy=411) BASOPHILS ABSOLUTE COUNT (BEAKER) (test 0.04 K/ L 0.01-0.08 gdmk=360) IMMATURE GRANULOCYTES-RELATIVE PERCENT (BEAKER) 1 % 0-1 (test szgt=1664) POCT-GLUCOSE [id number] 21:17:00 Test Item Value Reference Range Comments POC-GLUCOSE METER (BEAKER) 235 mg/dL 70-110 TESTED AT [address] (test fcbl=4775) [facility] [address] POCT-GLUCOSE [id number] 17:07:00 Test Item Value Reference Range Comments POC-GLUCOSE METER (BEAKER) 304 mg/dL 70-110 Notified SAMAN HERNANDEZ/TESTED AT [facility] (test xnvj=1793) [address] [place] [address] POCT-GLUCOSE [id number] 12:13:00 Test Item Value Reference Range Comments POC-GLUCOSE METER (BEAKER) 225 mg/dL 70-110 TESTED AT [address] (test rowe=0645) [place] [id number] POCT-GLUCOSE [id number] 08:01:00 Test Item Value Reference Range Comments POC-GLUCOSE METER (BEAKER) 177 mg/dL 70-110 TESTED AT [address] (test aaxj=3605) [place] [address] BASIC METABOLIC [id number] 07:41:00 Test Item Value Reference Range Comments SODIUM (BEAKER) (test 132 meq/L 136-145 hpcg=566) POTASSIUM (BEAKER) (test 4.7 meq/L 3.5-5.1 llyg=716) CHLORIDE (BEAKER) (test 100 meq/L 98-107 allp=208) CO2 (BEAKER) (test 23 meq/L 22-29 fxei=737) BLOOD UREA NITROGEN 45 mg/dL 7-21 (BEAKER) (test omxq=526) CREATININE (BEAKER) (test 3.50 mg/dL 0.57-1.25 rciq=831) GLUCOSE RANDOM (BEAKER) 153 mg/dL 70-105 (test srun=284) CALCIUM (BEAKER) (test 8.8 mg/dL 8.4-10.2 zltj=525) EGFR (BEAKER) (test 13 mL/min/1.73 sq m ESTIMATED GFR IS NOT tyca=7810) ACCURATE CREATININE CLEARANCE IN PREDICTING GLOMERULAR FILTRATION RATE. ESTIMATED GFR IS NOT APPLICABLE FOR DIALYSIS PATIENTS. [id number] 07:34:00 Test Item Value Reference Range Comments MAGNESIUM (BEAKER) (test upoj=089) 1.9 mg/dL 1.6-2.6 CBC W/PLT COUNT & AUTO [id number] 06:18:00 Test Item Value Reference Range Comments WHITE BLOOD CELL COUNT (BEAKER) (test uljf=690) 7.4 K/ L 3.5-10.5 RED BLOOD CELL COUNT (BEAKER) (test xnhi=822) 2.32 M/ L 3.93-5.22 HEMOGLOBIN (BEAKER) (test vciu=935) 7.1 GM/DL 11.2-15.7 HEMATOCRIT (BEAKER) (test fqqt=109) 22.6 % 34.1-44.9 MEAN CORPUSCULAR VOLUME (BEAKER) (test xnzu=526) 97.4 fL 79.4-94.8 MEAN CORPUSCULAR HEMOGLOBIN (BEAKER) (test 30.6 pg 25.6-32.2 klub=615) MEAN CORPUSCULAR HEMOGLOBIN CONC (BEAKER) (test 31.4 GM/DL 32.2-35.5 wjab=249) RED CELL DISTRIBUTION WIDTH (BEAKER) (test 13.8 % 11.7-14.4 rafc=820) PLATELET COUNT (BEAKER) (test azjb=451) 226 K/CU MM 150-450 MEAN PLATELET VOLUME (BEAKER) (test ifjr=191) 12.6 fL 9.4-12.3 NUCLEATED RED BLOOD CELLS (BEAKER) (test 0 /100 WBC 0-0 oyzj=094) NEUTROPHILS RELATIVE PERCENT (BEAKER) (test 65 % ypna=295) LYMPHOCYTES RELATIVE PERCENT (BEAKER) (test 21 % kyma=991) MONOCYTES RELATIVE PERCENT (BEAKER) (test 9 % ijiy=188) EOSINOPHILS RELATIVE PERCENT (BEAKER) (test 4 % szoc=873) BASOPHILS RELATIVE PERCENT (BEAKER) (test 1 % lztn=737) NEUTROPHILS ABSOLUTE COUNT (BEAKER) (test 4.84 K/ L 1.56-6.13 qbxc=450) LYMPHOCYTES ABSOLUTE COUNT (BEAKER) (test 1.52 K/ L 1.18-3.74 fnjw=712) MONOCYTES ABSOLUTE COUNT (BEAKER) (test 0.66 K/ L 0.24-0.36 oyuq=635) EOSINOPHILS ABSOLUTE COUNT (BEAKER) (test 0.32 K/ L 0.04-0.36 wkti=284) BASOPHILS ABSOLUTE COUNT (BEAKER) (test 0.04 K/ L 0.01-0.08 tusa=989) IMMATURE GRANULOCYTES-RELATIVE PERCENT (BEAKER) 0 % 0-1 (test uhps=0830) POCT-GLUCOSE [id number] 21:21:00 Test Item Value Reference Range Comments POC-GLUCOSE METER (BEAKER) 188 mg/dL 70-110 TESTED AT [address] (test hyoh=9607) [facility] [address] POCT-GLUCOSE [id number] 17:03:00 Test Item Value Reference Range Comments POC-GLUCOSE METER (BEAKER) 262 mg/dL 70-110 TESTED AT [address] (test sjnf=6160) [facility] [address] POCT-GLUCOSE [id number] 12:03:00 Test Item Value Reference Range Comments POC-GLUCOSE METER (BEAKER) 193 mg/dL 70-110 TESTED AT [address] (test kqor=9046) [facility] [address] POCT-GLUCOSE [id number] 08:18:00 Test Item Value Reference Range Comments POC-GLUCOSE METER (BEAKER) 219 mg/dL 70-110 TESTED AT [address] (test mdqy=2584) [facility] [address] BASIC METABOLIC [id number] 06:54:00 Test Item Value Reference Range Comments SODIUM (BEAKER) (test 133 meq/L 136-145 mbyx=090) POTASSIUM (BEAKER) (test 4.5 meq/L 3.5-5.1 zitg=150) CHLORIDE (BEAKER) (test 101 meq/L 98-107 ivpj=472) CO2 (BEAKER) (test 24 meq/L 22-29 cumu=704) BLOOD UREA NITROGEN 42 mg/dL 7-21 (BEAKER) (test sgsw=712) CREATININE (BEAKER) (test 3.61 mg/dL 0.57-1.25 adyi=960) GLUCOSE RANDOM (BEAKER) 186 mg/dL 70-105 (test avyi=134) CALCIUM (BEAKER) (test 8.4 mg/dL 8.4-10.2 ymjo=031) EGFR (BEAKER) (test 13 mL/min/1.73 sq m ESTIMATED GFR IS NOT hnbw=6002) ACCURATE CREATININE CLEARANCE IN PREDICTING GLOMERULAR FILTRATION RATE. ESTIMATED GFR IS NOT APPLICABLE FOR DIALYSIS PATIENTS. [id number] 06:39:00 Test Item Value Reference Range Comments PHOSPHORUS (BEAKER) (test fyxp=975) 4.5 mg/dL 2.3-4.7 [id number] 06:39:00 Test Item Value Reference Range Comments MAGNESIUM (BEAKER) (test lgci=243) 2.1 mg/dL 1.6-2.6 CBC W/PLT COUNT & AUTO [id number] 05:31:00 Test Item Value Reference Range Comments WHITE BLOOD CELL COUNT (BEAKER) (test wrrc=306) 7.3 K/ L 3.5-10.5 RED BLOOD CELL COUNT (BEAKER) (test zjpj=676) 2.27 M/ L 3.93-5.22 HEMOGLOBIN (BEAKER) (test xbyg=397) 7.0 GM/DL 11.2-15.7 HEMATOCRIT (BEAKER) (test zdhy=133) 22.1 % 34.1-44.9 MEAN CORPUSCULAR VOLUME (BEAKER) (test lnyk=690) 97.4 fL 79.4-94.8 MEAN CORPUSCULAR HEMOGLOBIN (BEAKER) (test 30.8 pg 25.6-32.2 xywl=189) MEAN CORPUSCULAR HEMOGLOBIN CONC (BEAKER) (test 31.7 GM/DL 32.2-35.5 picx=960) RED CELL DISTRIBUTION WIDTH (BEAKER) (test 13.5 % 11.7-14.4 kxfi=055) PLATELET COUNT (BEAKER) (test pdhi=618) 195 K/CU MM 150-450 MEAN PLATELET VOLUME (BEAKER) (test fwtn=334) 13.2 fL 9.4-12.3 NUCLEATED RED BLOOD CELLS (BEAKER) (test 0 /100 WBC 0-0 sxuv=184) NEUTROPHILS RELATIVE PERCENT (BEAKER) (test 65 % kulk=391) LYMPHOCYTES RELATIVE PERCENT (BEAKER) (test 21 % gthe=350) MONOCYTES RELATIVE PERCENT (BEAKER) (test 9 % pjaf=617) EOSINOPHILS RELATIVE PERCENT (BEAKER) (test 4 % oqun=454) BASOPHILS RELATIVE PERCENT (BEAKER) (test 1 % vzyd=116) NEUTROPHILS ABSOLUTE COUNT (BEAKER) (test 4.75 K/ L 1.56-6.13 xjto=758) LYMPHOCYTES ABSOLUTE COUNT (BEAKER) (test 1.51 K/ L 1.18-3.74 okli=733) MONOCYTES ABSOLUTE COUNT (BEAKER) (test 0.65 K/ L 0.24-0.36 jbdl=430) EOSINOPHILS ABSOLUTE COUNT (BEAKER) (test 0.31 K/ L 0.04-0.36 bnua=386) BASOPHILS ABSOLUTE COUNT (BEAKER) (test 0.04 K/ L 0.01-0.08 etxa=012) IMMATURE GRANULOCYTES-RELATIVE PERCENT (BEAKER) 1 % 0-1 (test helo=0987) POCT-GLUCOSE [id number] 20:31:00 Test Item Value Reference Range Comments POC-GLUCOSE METER (BEAKER) 246 mg/dL 70-110 TESTED AT [address] (test hjxn=4797) [place] [address] POCT-GLUCOSE [id number] 19:09:00 Test Item Value Reference Range Comments POC-GLUCOSE METER (BEAKER) 272 mg/dL 70-110 TESTED AT [address] (test zcrw=5473) [place] [address] POCT-GLUCOSE [id number] 17:42:00 Test Item Value Reference Range Comments POC-GLUCOSE METER (BEAKER) 297 mg/dL 70-110 TESTED AT [address] (test wpsp=2416) [place] [address] POCT-GLUCOSE [id number] 12:46:00 Test Item Value Reference Range Comments POC-GLUCOSE METER (BEAKER) 183 mg/dL 70-110 TESTED AT [address] (test dpyi=9927) [place] [id number] POCT-GLUCOSE [id number] 08:08:00 Test Item Value Reference Range Comments POC-GLUCOSE METER (BEAKER) 207 mg/dL 70-110 TESTED AT [address] (test svff=9149) [place] [address] BASIC METABOLIC [id number] 06:34:00 Test Item Value Reference Range Comments SODIUM (BEAKER) (test 135 meq/L 136-145 meva=294) POTASSIUM (BEAKER) (test 4.2 meq/L 3.5-5.1 pbho=530) CHLORIDE (BEAKER) (test 100 meq/L 98-107 gueq=071) CO2 (BEAKER) (test 26 meq/L 22-29 vgyo=387) BLOOD UREA NITROGEN 36 mg/dL 7-21 (BEAKER) (test yzse=241) CREATININE (BEAKER) (test 3.69 mg/dL 0.57-1.25 zedn=359) GLUCOSE RANDOM (BEAKER) 166 mg/dL 70-105 (test zbdu=088) CALCIUM (BEAKER) (test 8.8 mg/dL 8.4-10.2 cekf=195) EGFR (BEAKER) (test 12 mL/min/1.73 sq m ESTIMATED GFR IS NOT aifo=2150) ACCURATE CREATININE CLEARANCE IN PREDICTING GLOMERULAR FILTRATION RATE. ESTIMATED GFR IS NOT APPLICABLE FOR DIALYSIS PATIENTS. [id number] 06:28:00 Test Item Value Reference Range Comments MAGNESIUM (BEAKER) (test xnoj=167) 1.6 mg/dL 1.6-2.6 CBC W/PLT COUNT & AUTO [id number] 06:12:00 Test Item Value Reference Range Comments WHITE BLOOD CELL COUNT (BEAKER) (test gkmk=711) 7.3 K/ L 3.5-10.5 RED BLOOD CELL COUNT (BEAKER) (test jgta=198) 2.28 M/ L 3.93-5.22 HEMOGLOBIN (BEAKER) (test ahvq=229) 7.0 GM/DL 11.2-15.7 HEMATOCRIT (BEAKER) (test jxjd=404) 22.0 % 34.1-44.9 MEAN CORPUSCULAR VOLUME (BEAKER) (test avqn=742) 96.5 fL 79.4-94.8 MEAN CORPUSCULAR HEMOGLOBIN (BEAKER) (test 30.7 pg 25.6-32.2 mwto=213) MEAN CORPUSCULAR HEMOGLOBIN CONC (BEAKER) (test 31.8 GM/DL 32.2-35.5 tonm=538) RED CELL DISTRIBUTION WIDTH (BEAKER) (test 13.3 % 11.7-14.4 xeve=855) PLATELET COUNT (BEAKER) (test igca=169) 200 K/CU MM 150-450 MEAN PLATELET VOLUME (BEAKER) (test ufbr=487) 12.8 fL 9.4-12.3 NUCLEATED RED BLOOD CELLS (BEAKER) (test 0 /100 WBC 0-0 iftf=446) NEUTROPHILS RELATIVE PERCENT (BEAKER) (test 65 % mehp=581) LYMPHOCYTES RELATIVE PERCENT (BEAKER) (test 22 % ujdb=576) MONOCYTES RELATIVE PERCENT (BEAKER) (test 9 % bapd=223) EOSINOPHILS RELATIVE PERCENT (BEAKER) (test 4 % ehmz=390) BASOPHILS RELATIVE PERCENT (BEAKER) (test 0 % cplc=925) NEUTROPHILS ABSOLUTE COUNT (BEAKER) (test 4.71 K/ L 1.56-6.13 eafy=291) LYMPHOCYTES ABSOLUTE COUNT (BEAKER) (test 1.58 K/ L 1.18-3.74 qarp=266) MONOCYTES ABSOLUTE COUNT (BEAKER) (test 0.65 K/ L 0.24-0.36 zrmz=683) EOSINOPHILS ABSOLUTE COUNT (BEAKER) (test 0.27 K/ L 0.04-0.36 dkcm=344) BASOPHILS ABSOLUTE COUNT (BEAKER) (test 0.03 K/ L 0.01-0.08 molr=716) IMMATURE GRANULOCYTES-RELATIVE PERCENT (BEAKER) 0 % 0-1 (test yyzk=5124) POCT-GLUCOSE [id number] 21:22:00 Test Item Value Reference Range Comments POC-GLUCOSE METER (BEAKER) 279 mg/dL 70-110 TESTED AT [address] (test stji=4312) [facility] [id number] POCT-GLUCOSE [id number] 17:16:00 Test Item Value Reference Range Comments POC-GLUCOSE METER (BEAKER) 190 mg/dL 70-110 TESTED AT [address] (test loty=0798) [facility] [address] POCT-GLUCOSE [id number] 17:04:00 Test Item Value Reference Range Comments POC-GLUCOSE METER (BEAKER) 197 mg/dL 70-110 TESTED AT [address] (test xlxk=6180) [facility] [address] POCT-GLUCOSE [id number] 13:29:00 Test Item Value Reference Range Comments POC-GLUCOSE METER (BEAKER) 190 mg/dL 70-110 TESTED AT [address] (test freb=1093) [facility] [address] POCT-GLUCOSE [id number] 08:27:00 Test Item Value Reference Range Comments POC-GLUCOSE METER (BEAKER) 236 mg/dL 70-110 TESTED AT [address] (test hyjx=2846) [facility] [address] BASIC METABOLIC [id number] 06:50:00 Test Item Value Reference Range Comments SODIUM (BEAKER) (test 134 meq/L 136-145 dycs=925) POTASSIUM (BEAKER) (test 4.4 meq/L 3.5-5.1 jzot=326) CHLORIDE (BEAKER) (test 99 meq/L 98-107 slkx=647) CO2 (BEAKER) (test 26 meq/L 22-29 absx=930) BLOOD UREA NITROGEN 33 mg/dL 7-21 (BEAKER) (test qivb=107) CREATININE (BEAKER) (test 3.65 mg/dL 0.57-1.25 onhc=175) GLUCOSE RANDOM (BEAKER) 185 mg/dL 70-105 (test cwyt=260) CALCIUM (BEAKER) (test 8.7 mg/dL 8.4-10.2 fxrs=314) EGFR (BEAKER) (test 12 mL/min/1.73 sq m ESTIMATED GFR IS NOT rgde=6383) ACCURATE CREATININE CLEARANCE IN PREDICTING GLOMERULAR FILTRATION RATE. ESTIMATED GFR IS NOT APPLICABLE FOR DIALYSIS PATIENTS. [id number] 06:47:00 Test Item Value Reference Range Comments MAGNESIUM (BEAKER) (test yfdp=096) 1.6 mg/dL 1.6-2.6 CBC W/PLT COUNT & AUTO [id number] 06:21:00 Test Item Value Reference Range Comments WHITE BLOOD CELL COUNT (BEAKER) (test cdhm=018) 8.5 K/ L 3.5-10.5 RED BLOOD CELL COUNT (BEAKER) (test ayfb=525) 2.41 M/ L 3.93-5.22 HEMOGLOBIN (BEAKER) (test unyx=617) 7.5 GM/DL 11.2-15.7 HEMATOCRIT (BEAKER) (test amtk=410) 23.4 % 34.1-44.9 MEAN CORPUSCULAR VOLUME (BEAKER) (test yfzz=588) 97.1 fL 79.4-94.8 MEAN CORPUSCULAR HEMOGLOBIN (BEAKER) (test 31.1 pg 25.6-32.2 zkvk=859) MEAN CORPUSCULAR HEMOGLOBIN CONC (BEAKER) (test 32.1 GM/DL 32.2-35.5 bbfo=834) RED CELL DISTRIBUTION WIDTH (BEAKER) (test 13.1 % 11.7-14.4 vnwn=757) PLATELET COUNT (BEAKER) (test lyky=776) 200 K/CU MM 150-450 MEAN PLATELET VOLUME (BEAKER) (test zpyb=306) 12.8 fL 9.4-12.3 NUCLEATED RED BLOOD CELLS (BEAKER) (test 0 /100 WBC 0-0 uxsp=072) NEUTROPHILS RELATIVE PERCENT (BEAKER) (test 72 % bqao=538) LYMPHOCYTES RELATIVE PERCENT (BEAKER) (test 16 % zvcm=900) MONOCYTES RELATIVE PERCENT (BEAKER) (test 7 % leyk=234) EOSINOPHILS RELATIVE PERCENT (BEAKER) (test 5 % tuon=420) BASOPHILS RELATIVE PERCENT (BEAKER) (test 1 % gukq=017) NEUTROPHILS ABSOLUTE COUNT (BEAKER) (test 6.09 K/ L 1.56-6.13 vduo=949) LYMPHOCYTES ABSOLUTE COUNT (BEAKER) (test 1.32 K/ L 1.18-3.74 ybhg=108) MONOCYTES ABSOLUTE COUNT (BEAKER) (test 0.59 K/ L 0.24-0.36 vlcp=315) EOSINOPHILS ABSOLUTE COUNT (BEAKER) (test 0.39 K/ L 0.04-0.36 psme=406) BASOPHILS ABSOLUTE COUNT (BEAKER) (test 0.04 K/ L 0.01-0.08 kece=007) IMMATURE GRANULOCYTES-RELATIVE PERCENT (BEAKER) 1 % 0-1 (test vwua=8512) POCT-GLUCOSE [id number] 21:03:00 Test Item Value Reference Range Comments POC-GLUCOSE METER (BEAKER) 179 mg/dL 70-110 TESTED AT [address] (test jzhi=3683) [facility] [address] POCT-GLUCOSE [id number] 17:36:00 Test Item Value Reference Range Comments POC-GLUCOSE METER (BEAKER) 184 mg/dL 70-110 TESTED AT [address] (test ecdr=3682) [facility] [address] POCT-GLUCOSE [id number] 17:15:00 Test Item Value Reference Range Comments POC-GLUCOSE METER (BEAKER) 196 mg/dL 70-110 TESTED AT [address] (test gibg=7818) [place] [id number] POCT-GLUCOSE [id number] 12:00:00 Test Item Value Reference Range Comments POC-GLUCOSE METER (BEAKER) 179 mg/dL 70-110 TESTED AT [facility] [address] [facility] (test hbze=1118) [facility] [address] POCT-GLUCOSE [id number] 08:12:00 Test Item Value Reference Range Comments POC-GLUCOSE METER (BEAKER) 221 mg/dL 70-110 TESTED AT [facility] [address] [facility] (test dcmc=9980) [facility] [address] BASIC METABOLIC [id number] 07:21:00 Test Item Value Reference Range Comments SODIUM (BEAKER) (test 135 meq/L 136-145 dwmr=947) POTASSIUM (BEAKER) (test 4.5 meq/L 3.5-5.1 ecpd=875) CHLORIDE (BEAKER) (test 99 meq/L 98-107 joxd=516) CO2 (BEAKER) (test 28 meq/L 22-29 view=815) BLOOD UREA NITROGEN 25 mg/dL 7-21 (BEAKER) (test dvma=217) CREATININE (BEAKER) (test 3.07 mg/dL 0.57-1.25 ewkc=463) GLUCOSE RANDOM (BEAKER) 192 mg/dL 70-105 (test guav=635) CALCIUM (BEAKER) (test 8.5 mg/dL 8.4-10.2 ffoq=456) EGFR (BEAKER) (test 15 mL/min/1.73 sq m ESTIMATED GFR IS NOT mjua=1649) ACCURATE CREATININE CLEARANCE IN PREDICTING GLOMERULAR FILTRATION RATE. ESTIMATED GFR IS NOT APPLICABLE FOR DIALYSIS PATIENTS. [id number] 07:20:00 Test Item Value Reference Range Comments PHOSPHORUS (BEAKER) (test laqn=792) 3.6 mg/dL 2.3-4.7 [id number] 07:20:00 Test Item Value Reference Range Comments MAGNESIUM (BEAKER) (test akvz=192) 1.7 mg/dL 1.6-2.6 CBC W/PLT COUNT & AUTO [id number] 07:04:00 Test Item Value Reference Range Comments WHITE BLOOD CELL COUNT (BEAKER) (test tnoj=176) 7.8 K/ L 3.5-10.5 RED BLOOD CELL COUNT (BEAKER) (test nshf=380) 2.30 M/ L 3.93-5.22 HEMOGLOBIN (BEAKER) (test ezms=975) 7.1 GM/DL 11.2-15.7 HEMATOCRIT (BEAKER) (test uood=818) 22.7 % 34.1-44.9 MEAN CORPUSCULAR VOLUME (BEAKER) (test smrx=624) 98.7 fL 79.4-94.8 MEAN CORPUSCULAR HEMOGLOBIN (BEAKER) (test 30.9 pg 25.6-32.2 efow=607) MEAN CORPUSCULAR HEMOGLOBIN CONC (BEAKER) (test 31.3 GM/DL 32.2-35.5 dggj=901) RED CELL DISTRIBUTION WIDTH (BEAKER) (test 13.3 % 11.7-14.4 utnv=878) PLATELET COUNT (BEAKER) (test qqdv=750) 206 K/CU MM 150-450 MEAN PLATELET VOLUME (BEAKER) (test tfen=757) 12.8 fL 9.4-12.3 NUCLEATED RED BLOOD CELLS (BEAKER) (test 0 /100 WBC 0-0 lmnk=856) NEUTROPHILS RELATIVE PERCENT (BEAKER) (test 64 % tmee=456) LYMPHOCYTES RELATIVE PERCENT (BEAKER) (test 21 % acea=740) MONOCYTES RELATIVE PERCENT (BEAKER) (test 8 % qsaj=546) EOSINOPHILS RELATIVE PERCENT (BEAKER) (test 6 % tuqn=974) BASOPHILS RELATIVE PERCENT (BEAKER) (test 1 % aefg=842) NEUTROPHILS ABSOLUTE COUNT (BEAKER) (test 5.00 K/ L 1.56-6.13 phbu=003) LYMPHOCYTES ABSOLUTE COUNT (BEAKER) (test 1.66 K/ L 1.18-3.74 fqsn=666) MONOCYTES ABSOLUTE COUNT (BEAKER) (test 0.65 K/ L 0.24-0.36 tlzr=441) EOSINOPHILS ABSOLUTE COUNT (BEAKER) (test 0.44 K/ L 0.04-0.36 mhgk=919) BASOPHILS ABSOLUTE COUNT (BEAKER) (test 0.05 K/ L 0.01-0.08 kbar=372) IMMATURE GRANULOCYTES-RELATIVE PERCENT (BEAKER) 1 % 0-1 (test ujyv=7801) POCT-GLUCOSE [id number] 21:03:00 Test Item Value Reference Range Comments POC-GLUCOSE METER (BEAKER) 243 mg/dL 70-110 TESTED AT [address] (test mmzm=2630) [facility] [address] POCT-GLUCOSE [id number] 18:12:00 Test Item Value Reference Range Comments POC-GLUCOSE METER (BEAKER) 233 mg/dL 70-110 TESTED AT [address] (test mdec=4962) [facility] [address] POCT-GLUCOSE [id number] 12:29:00 Test Item Value Reference Range Comments POC-GLUCOSE METER (BEAKER) 185 mg/dL 70-110 TESTED AT [address] (test puuv=2504) [facility] [address] POCT-GLUCOSE [id number] 07:05:00 Test Item Value Reference Range Comments POC-GLUCOSE METER (BEAKER) 114 mg/dL 70-110 TESTED AT [address] (test jvwd=1777) [facility] [address] [id number] 06:33:00 Test Item Value Reference Range Comments PHOSPHORUS (BEAKER) (test knyp=064) 2.6 mg/dL 2.3-4.7 [id number] 06:33:00 Test Item Value Reference Range Comments MAGNESIUM (BEAKER) (test rswl=773) 1.7 mg/dL 1.6-2.6 COMPREHENSIVE METABOLIC [id number] 06:33:00 Test Item Value Reference Range Comments TOTAL PROTEIN (BEAKER) 6.4 gm/dL 6.0-8.3 (test ogrq=898) ALBUMIN (BEAKER) (test 2.8 g/dL 3.5-5.0 hjox=5255) ALKALINE PHOSPHATASE 95 U/L 40-150 (BEAKER) (test qerf=607) BILIRUBIN TOTAL (BEAKER) 0.2 mg/dL 0.2-1.2 (test gayp=543) SODIUM (BEAKER) (test 138 meq/L 136-145 pkyd=935) POTASSIUM (BEAKER) (test 3.9 meq/L 3.5-5.1 ioph=584) CHLORIDE (BEAKER) (test 102 meq/L 98-107 aaqz=966) CO2 (BEAKER) (test 29 meq/L 22-29 lngu=701) BLOOD UREA NITROGEN 12 mg/dL 7-21 (BEAKER) (test zeor=374) CREATININE (BEAKER) (test 2.08 mg/dL 0.57-1.25 odrb=930) GLUCOSE RANDOM (BEAKER) 79 mg/dL 70-105 (test fimx=530) CALCIUM (BEAKER) (test 8.3 mg/dL 8.4-10.2 plsj=895) AST (SGOT) (BEAKER) (test 17 U/L 5-34 wrfh=543) ALT (SGPT) (BEAKER) (test 16 U/L 6-55 mhgs=540) EGFR (BEAKER) (test 24 mL/min/1.73 sq m ESTIMATED GFR IS NOT uirw=8411) ACCURATE CREATININE CLEARANCE IN PREDICTING GLOMERULAR FILTRATION RATE. ESTIMATED GFR IS NOT APPLICABLE FOR DIALYSIS PATIENTS. CBC W/PLT COUNT & AUTO [id number] 06:13:00 Test Item Value Reference Range Comments WHITE BLOOD CELL COUNT (BEAKER) (test kdmm=570) 8.1 K/ L 3.5-10.5 RED BLOOD CELL COUNT (BEAKER) (test hviq=195) 2.41 M/ L 3.93-5.22 HEMOGLOBIN (BEAKER) (test udbq=557) 7.4 GM/DL 11.2-15.7 HEMATOCRIT (BEAKER) (test brfi=175) 23.7 % 34.1-44.9 MEAN CORPUSCULAR VOLUME (BEAKER) (test axvb=304) 98.3 fL 79.4-94.8 MEAN CORPUSCULAR HEMOGLOBIN (BEAKER) (test 30.7 pg 25.6-32.2 yxuf=003) MEAN CORPUSCULAR HEMOGLOBIN CONC (BEAKER) (test 31.2 GM/DL 32.2-35.5 wazn=209) RED CELL DISTRIBUTION WIDTH (BEAKER) (test 13.2 % 11.7-14.4 cbix=942) PLATELET COUNT (BEAKER) (test iuqn=974) 215 K/CU MM 150-450 MEAN PLATELET VOLUME (BEAKER) (test kmrs=020) 12.5 fL 9.4-12.3 NUCLEATED RED BLOOD CELLS (BEAKER) (test 0 /100 WBC 0-0 gwrm=201) NEUTROPHILS RELATIVE PERCENT (BEAKER) (test 63 % cxqs=980) LYMPHOCYTES RELATIVE PERCENT (BEAKER) (test 21 % qedw=701) MONOCYTES RELATIVE PERCENT (BEAKER) (test 11 % fytx=606) EOSINOPHILS RELATIVE PERCENT (BEAKER) (test 4 % xwsz=936) BASOPHILS RELATIVE PERCENT (BEAKER) (test 1 % wbtj=173) NEUTROPHILS ABSOLUTE COUNT (BEAKER) (test 5.10 K/ L 1.56-6.13 zerd=168) LYMPHOCYTES ABSOLUTE COUNT (BEAKER) (test 1.71 K/ L 1.18-3.74 pxit=043) MONOCYTES ABSOLUTE COUNT (BEAKER) (test 0.85 K/ L 0.24-0.36 trrv=168) EOSINOPHILS ABSOLUTE COUNT (BEAKER) (test 0.34 K/ L 0.04-0.36 dejn=245) BASOPHILS ABSOLUTE COUNT (BEAKER) (test 0.05 K/ L 0.01-0.08 zdhq=892) IMMATURE GRANULOCYTES-RELATIVE PERCENT (BEAKER) 0 % 0-1 (test fvlp=3971) CALCIUM, [id number] 05:45:00 Test Item Value Reference Range Comments CALCIUM IONIZED (BEAKER) (test ermn=009) 1.04 mmol/L 1.12-1.27 PH, BLOOD (BEAKER) (test bwzf=5094) 7.45 POCT-GLUCOSE [id number] 21:16:00 Test Item Value Reference Range Comments POC-GLUCOSE METER (BEAKER) 193 mg/dL 70-110 TESTED AT [address] (test jdst=9181) [place] [id number] POCT-GLUCOSE [id number] 18:58:00 Test Item Value Reference Range Comments POC-GLUCOSE METER (BEAKER) 158 mg/dL 70-110 TESTED AT [address] (test nigd=6750) [place] [address] VITAMIN B12 AND [id number] 17:12:00 Test Item Value Reference Range Comments VITAMIN B12 (BEAKER) (test odfy=627) 720 pg/mL 213-816 FOLATE (BEAKER) (test kben=254) 10.3 ng/mL >=7.0 [id number] 14:42:00 Test Item Value Reference Range Comments FERRITIN (BEAKER) (test iltw=208) 265 ng/mL 5-275 IRON, TIBC, % SAT. (WITHOUT FERRITIN)[id number] 14:14:00 Test Item Value Reference Range Comments IRON (BEAKER) (test xijs=394) 34 ug/dL 40-160 TOTAL IRON BINDING CAPACITY (BEAKER) (test 178 ug/dL 250-450 gofo=690) IRON % SATURATION (2) (BEAKER) (test rerh=0538) 19 % 20-55 POCT-GLUCOSE [id number] 12:25:00 Test Item Value Reference Range Comments POC-GLUCOSE METER (BEAKER) 264 mg/dL 70-110 TESTED AT [facility] [address] [facility] (test mvnm=1536) [facility] [address] POCT-GLUCOSE [id number] 08:00:00 Test Item Value Reference Range Comments POC-GLUCOSE METER (BEAKER) 181 mg/dL 70-110 TESTED AT [place] [id number] [facility] (test dttj=6878) [facility] [address] BASIC METABOLIC [id number] 06:49:00 Test Item Value Reference Range Comments SODIUM (BEAKER) (test 137 meq/L 136-145 gyns=062) POTASSIUM (BEAKER) (test 3.6 meq/L 3.5-5.1 ubnv=778) CHLORIDE (BEAKER) (test 100 meq/L 98-107 kzpk=998) CO2 (BEAKER) (test 30 meq/L 22-29 xomu=831) BLOOD UREA NITROGEN 22 mg/dL 7-21 (BEAKER) (test qrmh=779) CREATININE (BEAKER) (test 2.53 mg/dL 0.57-1.25 wjsv=799) GLUCOSE RANDOM (BEAKER) 168 mg/dL 70-105 (test uftm=873) CALCIUM (BEAKER) (test 8.0 mg/dL 8.4-10.2 antp=926) EGFR (BEAKER) (test 19 mL/min/1.73 sq m ESTIMATED GFR IS NOT ogkb=1706) ACCURATE CREATININE CLEARANCE IN PREDICTING GLOMERULAR FILTRATION RATE. ESTIMATED GFR IS NOT APPLICABLE FOR DIALYSIS PATIENTS. [id number] 06:37:00 Test Item Value Reference Range Comments PHOSPHORUS (BEAKER) (test hymw=582) 2.9 mg/dL 2.3-4.7 [id number] 06:37:00 Test Item Value Reference Range Comments MAGNESIUM (BEAKER) (test xifb=566) 1.8 mg/dL 1.6-2.6 CBC W/PLT COUNT & AUTO [id number] 06:19:00 Test Item Value Reference Range Comments WHITE BLOOD CELL COUNT (BEAKER) (test ralo=605) 7.6 K/ L 3.5-10.5 RED BLOOD CELL COUNT (BEAKER) (test lech=275) 2.30 M/ L 3.93-5.22 HEMOGLOBIN (BEAKER) (test xaon=278) 7.0 GM/DL 11.2-15.7 HEMATOCRIT (BEAKER) (test fdsp=321) 22.3 % 34.1-44.9 MEAN CORPUSCULAR VOLUME (BEAKER) (test vgxj=103) 97.0 fL 79.4-94.8 MEAN CORPUSCULAR HEMOGLOBIN (BEAKER) (test 30.4 pg 25.6-32.2 cagc=122) MEAN CORPUSCULAR HEMOGLOBIN CONC (BEAKER) (test 31.4 GM/DL 32.2-35.5 mkdj=880) RED CELL DISTRIBUTION WIDTH (BEAKER) (test 13.2 % 11.7-14.4 wlup=642) PLATELET COUNT (BEAKER) (test muaq=966) 214 K/CU MM 150-450 MEAN PLATELET VOLUME (BEAKER) (test lpgs=220) 12.4 fL 9.4-12.3 NUCLEATED RED BLOOD CELLS (BEAKER) (test 0 /100 WBC 0-0 xqqn=035) NEUTROPHILS RELATIVE PERCENT (BEAKER) (test 65 % fuqj=804) LYMPHOCYTES RELATIVE PERCENT (BEAKER) (test 20 % skii=252) MONOCYTES RELATIVE PERCENT (BEAKER) (test 10 % gbbb=932) EOSINOPHILS RELATIVE PERCENT (BEAKER) (test 3 % tczb=830) BASOPHILS RELATIVE PERCENT (BEAKER) (test 0 % tqfb=418) NEUTROPHILS ABSOLUTE COUNT (BEAKER) (test 4.97 K/ L 1.56-6.13 qxao=650) LYMPHOCYTES ABSOLUTE COUNT (BEAKER) (test 1.54 K/ L 1.18-3.74 yqil=508) MONOCYTES ABSOLUTE COUNT (BEAKER) (test 0.79 K/ L 0.24-0.36 pcso=607) EOSINOPHILS ABSOLUTE COUNT (BEAKER) (test 0.26 K/ L 0.04-0.36 lxgh=822) BASOPHILS ABSOLUTE COUNT (BEAKER) (test 0.03 K/ L 0.01-0.08 doek=004) IMMATURE GRANULOCYTES-RELATIVE PERCENT (BEAKER) 1 % 0-1 (test qghu=0756) POCT-GLUCOSE [id number] 21:09:00 Test Item Value Reference Range Comments POC-GLUCOSE METER (BEAKER) 181 mg/dL 70-110 TESTED AT [address] (test gtnq=1057) [place] [id number] POCT-GLUCOSE [id number] 20:36:00 Test Item Value Reference Range Comments POC-GLUCOSE METER (BEAKER) 231 mg/dL 70-110 TESTED AT [address] (test lpmr=1388) [place] [id number] POCT-GLUCOSE [id number] 12:46:00 Test Item Value Reference Range Comments POC-GLUCOSE METER (BEAKER) 180 mg/dL 70-110 TESTED AT [address] (test nhzn=2848) [place] [address] POCT-GLUCOSE [id number] 08:22:00 Test Item Value Reference Range Comments POC-GLUCOSE METER (BEAKER) 157 mg/dL 70-110 TESTED AT [address] (test gnyn=1149) [place] [address] BASIC METABOLIC [id number] 07:18:00 Test Item Value Reference Range Comments SODIUM (BEAKER) (test 136 meq/L 136-145 galq=001) POTASSIUM (BEAKER) (test 3.5 meq/L 3.5-5.1 jwvz=746) CHLORIDE (BEAKER) (test 97 meq/L 98-107 lenc=110) CO2 (BEAKER) (test 26 meq/L 22-29 btmw=381) BLOOD UREA NITROGEN 46 mg/dL 7-21 (BEAKER) (test awyk=165) CREATININE (BEAKER) (test 3.60 mg/dL 0.57-1.25 qjai=267) GLUCOSE RANDOM (BEAKER) 129 mg/dL 70-105 (test jtpm=564) CALCIUM (BEAKER) (test 8.1 mg/dL 8.4-10.2 ywas=424) EGFR (BEAKER) (test 13 mL/min/1.73 sq m ESTIMATED GFR IS NOT jlvu=2559) ACCURATE CREATININE CLEARANCE IN PREDICTING GLOMERULAR FILTRATION RATE. ESTIMATED GFR IS NOT APPLICABLE FOR DIALYSIS PATIENTS. [id number] 07:11:00 Test Item Value Reference Range Comments PHOSPHORUS (BEAKER) (test lmzp=066) 5.1 mg/dL 2.3-4.7 [id number] 07:11:00 Test Item Value Reference Range Comments MAGNESIUM (BEAKER) (test dkge=337) 1.8 mg/dL 1.6-2.6 CALCIUM, [id number] 06:46:00 Test Item Value Reference Range Comments CALCIUM IONIZED (BEAKER) (test oque=701) 0.99 mmol/L 1.12-1.27 PH, BLOOD (BEAKER) (test bttz=9723) 7.43 CBC W/PLT COUNT & AUTO [id number] 06:43:00 Test Item Value Reference Range Comments WHITE BLOOD CELL COUNT (BEAKER) (test sskq=953) 7.2 K/ L 3.5-10.5 RED BLOOD CELL COUNT (BEAKER) (test dfps=525) 2.48 M/ L 3.93-5.22 HEMOGLOBIN (BEAKER) (test zhic=658) 7.5 GM/DL 11.2-15.7 HEMATOCRIT (BEAKER) (test tcci=357) 23.5 % 34.1-44.9 MEAN CORPUSCULAR VOLUME (BEAKER) (test xbwx=388) 94.8 fL 79.4-94.8 MEAN CORPUSCULAR HEMOGLOBIN (BEAKER) (test 30.2 pg 25.6-32.2 miph=300) MEAN CORPUSCULAR HEMOGLOBIN CONC (BEAKER) (test 31.9 GM/DL 32.2-35.5 xsjn=902) RED CELL DISTRIBUTION WIDTH (BEAKER) (test 13.0 % 11.7-14.4 ofew=634) PLATELET COUNT (BEAKER) (test huki=188) 233 K/CU MM 150-450 MEAN PLATELET VOLUME (BEAKER) (test kwsl=165) 12.5 fL 9.4-12.3 NUCLEATED RED BLOOD CELLS (BEAKER) (test 0 /100 WBC 0-0 bhjr=576) NEUTROPHILS RELATIVE PERCENT (BEAKER) (test 66 % wlyg=390) LYMPHOCYTES RELATIVE PERCENT (BEAKER) (test 18 % upyv=849) MONOCYTES RELATIVE PERCENT (BEAKER) (test 12 % xizh=960) EOSINOPHILS RELATIVE PERCENT (BEAKER) (test 3 % boyt=773) BASOPHILS RELATIVE PERCENT (BEAKER) (test 1 % xbbc=867) NEUTROPHILS ABSOLUTE COUNT (BEAKER) (test 4.73 K/ L 1.56-6.13 ivwc=685) LYMPHOCYTES ABSOLUTE COUNT (BEAKER) (test 1.33 K/ L 1.18-3.74 nqos=647) MONOCYTES ABSOLUTE COUNT (BEAKER) (test 0.89 K/ L 0.24-0.36 jjfr=693) EOSINOPHILS ABSOLUTE COUNT (BEAKER) (test 0.19 K/ L 0.04-0.36 obhz=537) BASOPHILS ABSOLUTE COUNT (BEAKER) (test 0.05 K/ L 0.01-0.08 rfyx=887) IMMATURE GRANULOCYTES-RELATIVE PERCENT (BEAKER) 0 % 0-1 (test pfdd=9801) BLOOD [id number] 00:00:00 Test Item Value Reference Range Comments CULTURE (BEAKER) (test fqau=1676) No growth in 5 days BLOOD [id number] 00:00:00 Test Item Value Reference Range Comments CULTURE (BEAKER) (test wodz=5280) No growth in 5 days HEPATITIS B [id number] 20:32:00 Test Item Value Reference Range Comments HEPATITIS B CORE TOTAL ANTIBODY (BEAKER) (test Nonreactive Nonreactive tzsd=977) HEPATITIS B SURFACE ANTIBODY (BEAKER) (test 20.3 mIU/mL <8.0 mqmg=612) HEPATITIS B SURFACE ANTIGEN (2) (BEAKER) (test Nonreactive Nonreactive fmuo=5742) POCT-GLUCOSE [id number] 18:59:00 Test Item Value Reference Range Comments POC-GLUCOSE METER (BEAKER) 146 mg/dL 70-110 TESTED AT [address] (test dblq=8306) [facility] [address] ANG, NON-TUNNELED CATH >5 Y.O. [id number] 16:28:00Reason for exam:-> need hdFINAL REPORT Procedure: [...] of rightinternal jugular Isma catheter. Signed: Carrie Quinterosort Verified Date/Time: 2017 16:28:37 Reading Location: [place] [id number] Angio Body Reading Room EOSINOPHIL SMEAR, [id number] 08:57:00 Test Item Value Reference Range Comments EOSINOPHIL SMEAR, URINE (BEAKER) Rare EOS=less than 5% WBCs No EOS seen (test rnvr=0157) seen are EOS POCT-GLUCOSE [id number] 07:29:00 Test Item Value Reference Range Comments POC-GLUCOSE METER (BEAKER) 143 mg/dL 70-110 TESTED AT [facility] [address] [facility] (test hxbl=3273) [facility] [address] PROTHROMBIN [id number] 06:24:00 Test Item Value Reference Range Comments PROTIME (BEAKER) (test rtcv=516) 16.0 seconds 11.7-14.7 INR (BEAKER) (test lsdo=327) 1.3 <=5.9 RECOMMENDED COUMADIN/WARFARIN INR THERAPY RANGESSTANDARD DOSE: 2.0 - 3.0 Includes: PROPHYLAXIS forvenous thrombosis, systemic embolization; TREATMENT for venous thrombosis and/or pulmonary embolus.HIGH RISK: Target INR is 2.5-3.5 for patients with mechanical heart valves.[id number] 06:18:00 Test Item Value Reference Range Comments PHOSPHORUS (BEAKER) (test nopb=197) 9.4 mg/dL 2.3-4.7 [id number] 06:14:00 Test Item Value Reference Range Comments MAGNESIUM (BEAKER) (test nkmn=205) 2.0 mg/dL 1.6-2.6 CREATINE KINASE (CK)2018-02-06 06:14:00 Test Item Value Reference Range Comments CREATINE KINASE TOTAL (BEAKER) (test phnf=705) 21 U/L 29-200 COMPREHENSIVE METABOLIC [id number] 06:14:00 Test Item Value Reference Range Comments TOTAL PROTEIN (BEAKER) 6.3 gm/dL 6.0-8.3 (test brev=744) ALBUMIN (BEAKER) (test 2.7 g/dL 3.5-5.0 tsns=3298) ALKALINE PHOSPHATASE 101 U/L 40-150 (BEAKER) (test bpfz=012) BILIRUBIN TOTAL (BEAKER) 0.3 mg/dL 0.2-1.2 (test eziy=509) SODIUM (BEAKER) (test 135 meq/L 136-145 izvg=470) POTASSIUM (BEAKER) (test 3.8 meq/L 3.5-5.1 qebp=251) CHLORIDE (BEAKER) (test 91 meq/L 98-107 occc=064) CO2 (BEAKER) (test 28 meq/L 22-29 rmbe=391) BLOOD UREA NITROGEN 92 mg/dL 7-21 (BEAKER) (test msak=281) CREATININE (BEAKER) (test 5.56 mg/dL 0.57-1.25 csss=963) GLUCOSE RANDOM (BEAKER) 137 mg/dL 70-105 (test etxn=240) CALCIUM (BEAKER) (test 8.4 mg/dL 8.4-10.2 kdxr=653) AST (SGOT) (BEAKER) (test 11 U/L 5-34 smip=698) ALT (SGPT) (BEAKER) (test 10 U/L 6-55 bwpr=232) EGFR (BEAKER) (test 8 mL/min/1.73 sq m ESTIMATED GFR IS NOT jcqh=8752) ACCURATE CREATININE CLEARANCE IN PREDICTING GLOMERULAR FILTRATION RATE. ESTIMATED GFR IS NOT APPLICABLE FOR DIALYSIS PATIENTS. B-TYPE NATRIURETIC FACTOR (BNP)2018-02-06 06:13:00 Test Item Value Reference Range Comments B-TYPE NATRIURETIC PEPTIDE (BEAKER) (test 757 pg/mL 0-100 tgpd=340) CALCIUM, [id number] 05:59:00 Test Item Value Reference Range Comments CALCIUM IONIZED (BEAKER) (test psuy=483) 0.97 mmol/L 1.12-1.27 PH, BLOOD (BEAKER) (test hteh=5006) 7.42 CBC W/PLT COUNT & AUTO [id number] 05:50:00 Test Item Value Reference Range Comments WHITE BLOOD CELL COUNT (BEAKER) (test poxn=477) 6.5 K/ L 3.5-10.5 RED BLOOD CELL COUNT (BEAKER) (test uyta=637) 2.54 M/ L 3.93-5.22 HEMOGLOBIN (BEAKER) (test ansf=302) 7.8 GM/DL 11.2-15.7 HEMATOCRIT (BEAKER) (test snsw=111) 23.4 % 34.1-44.9 MEAN CORPUSCULAR VOLUME (BEAKER) (test anqz=655) 92.1 fL 79.4-94.8 MEAN CORPUSCULAR HEMOGLOBIN (BEAKER) (test 30.7 pg 25.6-32.2 zplt=436) MEAN CORPUSCULAR HEMOGLOBIN CONC (BEAKER) (test 33.3 GM/DL 32.2-35.5 jhik=432) RED CELL DISTRIBUTION WIDTH (BEAKER) (test 12.8 % 11.7-14.4 cqkl=476) PLATELET COUNT (BEAKER) (test chty=202) 244 K/CU MM 150-450 MEAN PLATELET VOLUME (BEAKER) (test thcx=513) 12.3 fL 9.4-12.3 NUCLEATED RED BLOOD CELLS (BEAKER) (test 0 /100 WBC 0-0 wfsq=433) NEUTROPHILS RELATIVE PERCENT (BEAKER) (test 70 % xjeh=737) LYMPHOCYTES RELATIVE PERCENT (BEAKER) (test 17 % lcwh=344) MONOCYTES RELATIVE PERCENT (BEAKER) (test 10 % stzs=699) EOSINOPHILS RELATIVE PERCENT (BEAKER) (test 3 % eade=253) BASOPHILS RELATIVE PERCENT (BEAKER) (test 1 % vchk=895) NEUTROPHILS ABSOLUTE COUNT (BEAKER) (test 4.56 K/ L 1.56-6.13 uace=966) LYMPHOCYTES ABSOLUTE COUNT (BEAKER) (test 1.08 K/ L 1.18-3.74 ahux=560) MONOCYTES ABSOLUTE COUNT (BEAKER) (test 0.65 K/ L 0.24-0.36 bktn=506) EOSINOPHILS ABSOLUTE COUNT (BEAKER) (test 0.17 K/ L 0.04-0.36 ujuo=580) BASOPHILS ABSOLUTE COUNT (BEAKER) (test 0.05 K/ L 0.01-0.08 bpkp=211) IMMATURE GRANULOCYTES-RELATIVE PERCENT (BEAKER) 1 % 0-1 (test ybbq=1566) URINALYSIS W/ [id number] 02:20:00 Test Item Value Reference Range Comments COLOR (BEAKER) (test iwrr=240) Light Yellow CLARITY (BEAKER) (test euwm=607) Clear SPECIFIC GRAVITY UA (BEAKER) (test dlyu=660) 1.008 1.001-1.035 PH UA (BEAKER) (test towi=168) 6.5 5.0-8.0 PROTEIN UA (BEAKER) (test zuro=534) 70 mg/dL Negative GLUCOSE UA (BEAKER) (test dzhf=452) 50 mg/dL Negative KETONES UA (BEAKER) (test rype=095) Trace Negative BILIRUBIN UA (BEAKER) (test qkjn=522) Negative Negative BLOOD UA (BEAKER) (test kfqo=198) Negative Negative NITRITE UA (BEAKER) (test ywor=558) Negative Negative LEUKOCYTE ESTERASE UA (BEAKER) (test icoq=406) Moderate Negative UROBILINOGEN UA (BEAKER) (test mpqd=805) 0.2 mg/dL 0.2-1.0 RBC UA (BEAKER) (test jgeo=305) 2 /HPF WBC UA (BEAKER) (test mhrj=727) 21 /HPF BACTERIA (BEAKER) (test bafw=536) Occasional MUCUS (BEAKER) (test qfte=5911) Rare SQUAMOUS EPITHELIAL (BEAKER) (test wddq=078) 1 /HPF HYALINE CASTS (BEAKER) (test crjm=356) 1 /LPF GRANULAR CASTS (BEAKER) (test umku=132) 1 /LPF YEAST (BEAKER) (test fhvi=4220) Occasional SOURCE(BEAKER) (test hucb=3827) Urine, [place] CREATININE, RANDOM [id number] 01:22:00 Test Item Value Reference Range Comments CREATININE URINE (BEAKER) (test nydg=145) 28.2 mg/dL Reference Range: No NormalsPROTEIN, RANDOM [id number] 01:22:00 Test Item Value Reference Range Comments PROTEIN, URINE (BEAKER) (test pqbg=3977) 80 mg/dL 0-14 SODIUM, RANDOM [id number] 01:22:00 Test Item Value Reference Range Comments SODIUM URINE (BEAKER) (test ebgv=518) 65 meq/L Reference Range: No NormalsPOCT-GLUCOSE [id number] 22:17:00 Test Item Value Reference Range Comments POC-GLUCOSE METER (BEAKER) 162 mg/dL 70-110 TESTED AT [address] (test fxgq=3766) [place] [address] RAD, CHEST, 1 VIEW, NON [id number] 20:31:00Reason for exam:->edemaShould this be performed at [...] over the cavoatrial junction/right atrium. Signed: Daniel Elizabetheport Verified Date/ Time: 02/05/2018 20:31:31 Reading Location: [address] Consult Reading Room POCT- GLUCOSE [id number] 17:16:00 Test Item Value Reference Range Comments POC-GLUCOSE METER (BEAKER) 204 mg/dL 70-110 TESTED AT [address] (test cqmn=0005) [place] [id number] POCT-GLUCOSE [id number] 12:28:00 Test Item Value Reference Range Comments POC-GLUCOSE METER (BEAKER) 214 mg/dL 70-110 TESTED AT [address] (test czit=1895) [place] [id number] BASIC METABOLIC [id number] 07:47:00 Test Item Value Reference Range Comments SODIUM (BEAKER) (test 133 meq/L 136-145 agrd=781) POTASSIUM (BEAKER) (test 4.3 meq/L 3.5-5.1 tgxl=851) CHLORIDE (BEAKER) (test 93 meq/L 98-107 ukpi=672) CO2 (BEAKER) (test 22 meq/L 22-29 ihyp=141) BLOOD UREA NITROGEN 97 mg/dL 7-21 (BEAKER) (test xvpg=072) CREATININE (BEAKER) (test 5.21 mg/dL 0.57-1.25 ndkg=961) GLUCOSE RANDOM (BEAKER) 152 mg/dL 70-105 (test pdxj=780) CALCIUM (BEAKER) (test 8.3 mg/dL 8.4-10.2 ezqn=121) EGFR (BEAKER) (test 8 mL/min/1.73 sq m ESTIMATED GFR IS NOT mzgi=7496) ACCURATE CREATININE CLEARANCE IN PREDICTING GLOMERULAR FILTRATION RATE. ESTIMATED GFR IS NOT APPLICABLE FOR DIALYSIS PATIENTS. POCT-GLUCOSE [id number] 07:32:00 Test Item Value Reference Range Comments POC-GLUCOSE METER (BEAKER) 172 mg/dL 70-110 TESTED AT [facility] [address] [facility] (test wxwz=5150) [facility] [address] [id number] 07:24:00 Test Item Value Reference Range Comments MAGNESIUM (BEAKER) (test lbfe=811) 2.0 mg/dL 1.6-2.6 CBC W/PLT COUNT & AUTO [id number] 07:07:00 Test Item Value Reference Range Comments WHITE BLOOD CELL COUNT (BEAKER) (test tjbz=282) 5.9 K/ L 3.5-10.5 RED BLOOD CELL COUNT (BEAKER) (test neuj=639) 2.49 M/ L 3.93-5.22 HEMOGLOBIN (BEAKER) (test ezsp=563) 7.7 GM/DL 11.2-15.7 HEMATOCRIT (BEAKER) (test pvqy=682) 23.0 % 34.1-44.9 MEAN CORPUSCULAR VOLUME (BEAKER) (test dzjc=741) 92.4 fL 79.4-94.8 MEAN CORPUSCULAR HEMOGLOBIN (BEAKER) (test 30.9 pg 25.6-32.2 ysqs=050) MEAN CORPUSCULAR HEMOGLOBIN CONC (BEAKER) (test 33.5 GM/DL 32.2-35.5 ixqf=946) RED CELL DISTRIBUTION WIDTH (BEAKER) (test 12.7 % 11.7-14.4 zhdl=381) PLATELET COUNT (BEAKER) (test bisl=757) 251 K/CU MM 150-450 MEAN PLATELET VOLUME (BEAKER) (test spoj=745) 12.1 fL 9.4-12.3 NUCLEATED RED BLOOD CELLS (BEAKER) (test 0 /100 WBC 0-0 uasu=650) NEUTROPHILS RELATIVE PERCENT (BEAKER) (test 66 % rkig=199) LYMPHOCYTES RELATIVE PERCENT (BEAKER) (test 21 % yrzo=439) MONOCYTES RELATIVE PERCENT (BEAKER) (test 11 % guqb=756) EOSINOPHILS RELATIVE PERCENT (BEAKER) (test 2 % ayjn=625) BASOPHILS RELATIVE PERCENT (BEAKER) (test 1 % fbfc=499) NEUTROPHILS ABSOLUTE COUNT (BEAKER) (test 3.87 K/ L 1.56-6.13 hsux=043) LYMPHOCYTES ABSOLUTE COUNT (BEAKER) (test 1.23 K/ L 1.18-3.74 gijc=708) MONOCYTES ABSOLUTE COUNT (BEAKER) (test 0.63 K/ L 0.24-0.36 bypp=862) EOSINOPHILS ABSOLUTE COUNT (BEAKER) (test 0.12 K/ L 0.04-0.36 vnrv=199) BASOPHILS ABSOLUTE COUNT (BEAKER) (test 0.05 K/ L 0.01-0.08 orkj=061) IMMATURE GRANULOCYTES-RELATIVE PERCENT (BEAKER) 0 % 0-1 (test tlhf=4111) POCT-GLUCOSE [id number] 20:54:00 Test Item Value Reference Range Comments POC-GLUCOSE METER (BEAKER) 172 mg/dL 70-110 TESTED AT [address] (test nnzv=8376) [facility] [address] POCT-GLUCOSE [id number] 18:59:00 Test Item Value Reference Range Comments POC-GLUCOSE METER (BEAKER) 182 mg/dL 70-110 TESTED AT [address] (test otph=1903) [facility] [address] POCT-GLUCOSE [id number] 13:26:00 Test Item Value Reference Range Comments POC-GLUCOSE METER (BEAKER) 213 mg/dL 70-110 TESTED AT [facility] [address] [facility] (test unvq=3954) [facility] [address] POCT-GLUCOSE [id number] 08:37:00 Test Item Value Reference Range Comments POC-GLUCOSE METER (BEAKER) 192 mg/dL 70-110 TESTED AT [facility] [address] [facility] (test ntzb=8134) [facility] [address] BASIC METABOLIC [id number] 06:57:00 Test Item Value Reference Range Comments SODIUM (BEAKER) (test 130 meq/L 136-145 yzue=022) POTASSIUM (BEAKER) (test 4.6 meq/L 3.5-5.1 lzsu=481) CHLORIDE (BEAKER) (test 95 meq/L 98-107 fpax=759) CO2 (BEAKER) (test 22 meq/L 22-29 rgqk=412) BLOOD UREA NITROGEN 98 mg/dL 7-21 (BEAKER) (test svkw=016) CREATININE (BEAKER) (test 4.85 mg/dL 0.57-1.25 uxug=897) GLUCOSE RANDOM (BEAKER) 172 mg/dL 70-105 (test tkxf=172) CALCIUM (BEAKER) (test 8.1 mg/dL 8.4-10.2 syci=594) EGFR (BEAKER) (test 9 mL/min/1.73 sq m ESTIMATED GFR IS NOT pump=7332) ACCURATE CREATININE CLEARANCE IN PREDICTING GLOMERULAR FILTRATION RATE. ESTIMATED GFR IS NOT APPLICABLE FOR DIALYSIS PATIENTS. [id number] 06:52:00 Test Item Value Reference Range Comments MAGNESIUM (BEAKER) (test uyxy=447) 2.0 mg/dL 1.6-2.6 CBC W/PLT COUNT & AUTO [id number] 06:52:00 Test Item Value Reference Range Comments WHITE BLOOD CELL COUNT (BEAKER) (test tzja=964) 5.5 K/ L 3.5-10.5 RED BLOOD CELL COUNT (BEAKER) (test jxrh=562) 2.36 M/ L 3.93-5.22 HEMOGLOBIN (BEAKER) (test yzud=308) 7.2 GM/DL 11.2-15.7 HEMATOCRIT (BEAKER) (test ccuo=555) 21.9 % 34.1-44.9 MEAN CORPUSCULAR VOLUME (BEAKER) (test lrxc=794) 92.8 fL 79.4-94.8 MEAN CORPUSCULAR HEMOGLOBIN (BEAKER) (test 30.5 pg 25.6-32.2 ljhu=890) MEAN CORPUSCULAR HEMOGLOBIN CONC (BEAKER) (test 32.9 GM/DL 32.2-35.5 wcqk=861) RED CELL DISTRIBUTION WIDTH (BEAKER) (test 13.0 % 11.7-14.4 nvoo=178) PLATELET COUNT (BEAKER) (test zklt=388) 242 K/CU MM 150-450 MEAN PLATELET VOLUME (BEAKER) (test fagc=740) 11.8 fL 9.4-12.3 NUCLEATED RED BLOOD CELLS (BEAKER) (test 0 /100 WBC 0-0 xwmv=772) NEUTROPHILS RELATIVE PERCENT (BEAKER) (test 56 % jfiw=481) LYMPHOCYTES RELATIVE PERCENT (BEAKER) (test 26 % swjr=154) MONOCYTES RELATIVE PERCENT (BEAKER) (test 12 % ghtj=635) EOSINOPHILS RELATIVE PERCENT (BEAKER) (test 6 % ufer=249) BASOPHILS RELATIVE PERCENT (BEAKER) (test 1 % kmdp=494) NEUTROPHILS ABSOLUTE COUNT (BEAKER) (test 3.07 K/ L 1.56-6.13 krod=512) LYMPHOCYTES ABSOLUTE COUNT (BEAKER) (test 1.45 K/ L 1.18-3.74 zkvz=103) MONOCYTES ABSOLUTE COUNT (BEAKER) (test 0.64 K/ L 0.24-0.36 ucrf=298) EOSINOPHILS ABSOLUTE COUNT (BEAKER) (test 0.31 K/ L 0.04-0.36 qugu=267) BASOPHILS ABSOLUTE COUNT (BEAKER) (test 0.04 K/ L 0.01-0.08 enzs=074) IMMATURE GRANULOCYTES-RELATIVE PERCENT (BEAKER) 0 % 0-1 (test vkwk=6840) POCT-GLUCOSE [id number] 21:09:00 Test Item Value Reference Range Comments POC-GLUCOSE METER (BEAKER) 217 mg/dL 70-110 TESTED AT [address] (test idhp=3414) [facility] [address] POCT-GLUCOSE [id number] 17:47:00 Test Item Value Reference Range Comments POC-GLUCOSE METER (BEAKER) 172 mg/dL 70-110 TESTED AT [address] (test divg=7873) [facility] [address] POCT-GLUCOSE [id number] 12:22:00 Test Item Value Reference Range Comments POC-GLUCOSE METER (BEAKER) 228 mg/dL 70-110 TESTED AT [facility] [address] (test flha=5493) [facility] [address] VANCOMYCIN LEVEL, [id number] 12:13:00 Test Item Value Reference Range Comments VANCOMYCIN RANDOM (BEAKER) (test ajsm=144) 20.7 ug/mL Reference Range: No NormalsB-TYPE NATRIURETIC FACTOR (BNP)2018-02-03 12:11:00 Test Item Value Reference Range Comments B-TYPE NATRIURETIC PEPTIDE (BEAKER) (test 434 pg/mL 0-100 nbyi=369) U/S, RENAL WITH [id number] 11:13:00Reason for exam:->renal failureFINAL REPORT Renal ultrasound [...] with elevated resistive indicis. Signed: Clovis Fischer Verified Date/Time: 02/03/2018 11:13:52 Reading Location: [facility] B1 C013Y CT Body Reading Room POCT-GLUCOSE [id number] 09:01:00 Test Item Value Reference Range Comments POC-GLUCOSE METER (BEAKER) 168 mg/dL 70-110 TESTED AT [facility] [address] (test wuii=4261) [facility] [address] BASIC METABOLIC [id number] 07:10:00 Test Item Value Reference Range Comments SODIUM (BEAKER) (test 128 meq/L 136-145 qrrr=082) POTASSIUM (BEAKER) (test 5.0 meq/L 3.5-5.1 lrwi=094) CHLORIDE (BEAKER) (test 100 meq/L 98-107 cuwb=090) CO2 (BEAKER) (test 15 meq/L 22-29 ggbl=178) BLOOD UREA NITROGEN 98 mg/dL 7-21 (BEAKER) (test wjtm=985) CREATININE (BEAKER) (test 4.23 mg/dL 0.57-1.25 blhh=997) GLUCOSE RANDOM (BEAKER) 163 mg/dL 70-105 (test ydyi=272) CALCIUM (BEAKER) (test 8.1 mg/dL 8.4-10.2 duqd=050) EGFR (BEAKER) (test 11 mL/min/1.73 sq m ESTIMATED GFR IS NOT jjgj=0890) ACCURATE CREATININE CLEARANCE IN PREDICTING GLOMERULAR FILTRATION RATE. ESTIMATED GFR IS NOT APPLICABLE FOR DIALYSIS PATIENTS. [id number] 07:08:00 Test Item Value Reference Range Comments MAGNESIUM (BEAKER) (test vxdk=676) 2.1 mg/dL 1.6-2.6 CBC W/PLT COUNT & AUTO [id number] 05:55:00 Test Item Value Reference Range Comments WHITE BLOOD CELL COUNT (BEAKER) (test ffer=815) 6.6 K/ L 3.5-10.5 RED BLOOD CELL COUNT (BEAKER) (test vnwc=232) 2.58 M/ L 3.93-5.22 HEMOGLOBIN (BEAKER) (test qupd=536) 8.0 GM/DL 11.2-15.7 HEMATOCRIT (BEAKER) (test xztg=167) 24.6 % 34.1-44.9 MEAN CORPUSCULAR VOLUME (BEAKER) (test rzwd=997) 95.3 fL 79.4-94.8 MEAN CORPUSCULAR HEMOGLOBIN (BEAKER) (test 31.0 pg 25.6-32.2 zrmq=410) MEAN CORPUSCULAR HEMOGLOBIN CONC (BEAKER) (test 32.5 GM/DL 32.2-35.5 kbpg=182) RED CELL DISTRIBUTION WIDTH (BEAKER) (test 13.0 % 11.7-14.4 jjex=371) PLATELET COUNT (BEAKER) (test uagk=107) 293 K/CU MM 150-450 MEAN PLATELET VOLUME (BEAKER) (test daov=474) 11.4 fL 9.4-12.3 NUCLEATED RED BLOOD CELLS (BEAKER) (test 0 /100 WBC 0-0 ducs=017) NEUTROPHILS RELATIVE PERCENT (BEAKER) (test 60 % akoz=264) LYMPHOCYTES RELATIVE PERCENT (BEAKER) (test 24 % iasd=664) MONOCYTES RELATIVE PERCENT (BEAKER) (test 10 % kkid=752) EOSINOPHILS RELATIVE PERCENT (BEAKER) (test 5 % hxni=268) BASOPHILS RELATIVE PERCENT (BEAKER) (test 1 % hskg=980) NEUTROPHILS ABSOLUTE COUNT (BEAKER) (test 3.96 K/ L 1.56-6.13 fsni=219) LYMPHOCYTES ABSOLUTE COUNT (BEAKER) (test 1.58 K/ L 1.18-3.74 rrds=513) MONOCYTES ABSOLUTE COUNT (BEAKER) (test 0.68 K/ L 0.24-0.36 gwpd=114) EOSINOPHILS ABSOLUTE COUNT (BEAKER) (test 0.30 K/ L 0.04-0.36 ehrw=777) BASOPHILS ABSOLUTE COUNT (BEAKER) (test 0.04 K/ L 0.01-0.08 mzdh=699) IMMATURE GRANULOCYTES-RELATIVE PERCENT (BEAKER) 1 % 0-1 (test xqok=2998) POCT-GLUCOSE [id number] 21:31:00 Test Item Value Reference Range Comments POC-GLUCOSE METER (BEAKER) 230 mg/dL 70-110 TESTED AT [address] (test yocc=7768) [facility] [address] POCT-GLUCOSE [id number] 17:21:00 Test Item Value Reference Range Comments POC-GLUCOSE METER (BEAKER) 178 mg/dL 70-110 TESTED AT [address] (test jlti=2882) [facility] [address] SODIUM, RANDOM [id number] 16:59:00 Test Item Value Reference Range Comments SODIUM URINE (BEAKER) (test fqll=853) 41 meq/L Reference Range: No NormalsCREATININE, RANDOM [id number] 16:58:00 Test Item Value Reference Range Comments CREATININE URINE (BEAKER) (test lpad=342) 36.7 mg/dL Reference Range: No NormalsURINALYSIS W/ [id number] 15:32:00 Test Item Value Reference Range Comments COLOR (BEAKER) (test pqsm=710) Light Yellow CLARITY (BEAKER) (test tijd=103) Hazy SPECIFIC GRAVITY UA (BEAKER) (test uhzr=258) 1.010 1.001-1.035 PH UA (BEAKER) (test xzvv=008) 5.5 5.0-8.0 PROTEIN UA (BEAKER) (test voeo=440) 100 mg/dL Negative GLUCOSE UA (BEAKER) (test qdvf=628) 70 mg/dL Negative KETONES UA (BEAKER) (test iiws=212) Negative Negative BILIRUBIN UA (BEAKER) (test tndz=428) Negative Negative BLOOD UA (BEAKER) (test ldui=943) Small Negative NITRITE UA (BEAKER) (test rdxc=299) Negative Negative LEUKOCYTE ESTERASE UA (BEAKER) (test rvua=956) Large Negative UROBILINOGEN UA (BEAKER) (test zpkh=903) 0.2 mg/dL 0.2-1.0 RBC UA (BEAKER) (test xtqi=434) 1 /HPF WBC UA (BEAKER) (test jwcr=878) 54 /HPF SQUAMOUS EPITHELIAL (BEAKER) (test gamf=165) < /HPF SOURCE(BEAKER) (test ejku=9179) Urine, [place] POCT-GLUCOSE [id number] 11:31:00 Test Item Value Reference Range Comments POC-GLUCOSE METER (BEAKER) 249 mg/dL 70-110 TESTED AT [address] (test yhsp=0901) [place] [id number] POCT-GLUCOSE [id number] 08:34:00 Test Item Value Reference Range Comments POC-GLUCOSE METER (BEAKER) 238 mg/dL 70-110 TESTED AT [address] (test tjcu=4054) [place] [id number] BASIC METABOLIC [id number] 07:07:00 Test Item Value Reference Range Comments SODIUM (BEAKER) (test 128 meq/L 136-145 xnwr=326) POTASSIUM (BEAKER) (test 5.3 meq/L 3.5-5.1 qdts=909) CHLORIDE (BEAKER) (test 97 meq/L 98-107 jsil=273) CO2 (BEAKER) (test 17 meq/L 22-29 zphw=552) BLOOD UREA NITROGEN 93 mg/dL 7-21 (BEAKER) (test ksom=662) CREATININE (BEAKER) (test 3.43 mg/dL 0.57-1.25 bwii=546) GLUCOSE RANDOM (BEAKER) 250 mg/dL 70-105 (test lnfj=253) CALCIUM (BEAKER) (test 8.4 mg/dL 8.4-10.2 bxhb=772) EGFR (BEAKER) (test 13 mL/min/1.73 sq m ESTIMATED GFR IS NOT jasx=8024) ACCURATE CREATININE CLEARANCE IN PREDICTING GLOMERULAR FILTRATION RATE. ESTIMATED GFR IS NOT APPLICABLE FOR DIALYSIS PATIENTS. [id number] 07:02:00 Test Item Value Reference Range Comments MAGNESIUM (BEAKER) (test ozec=319) 2.2 mg/dL 1.6-2.6 CBC W/PLT COUNT & AUTO [id number] 06:17:00 Test Item Value Reference Range Comments WHITE BLOOD CELL COUNT (BEAKER) (test pwho=363) 9.4 K/ L 3.5-10.5 RED BLOOD CELL COUNT (BEAKER) (test zwax=248) 2.72 M/ L 3.93-5.22 HEMOGLOBIN (BEAKER) (test wijx=543) 8.2 GM/DL 11.2-15.7 HEMATOCRIT (BEAKER) (test acwe=492) 26.0 % 34.1-44.9 MEAN CORPUSCULAR VOLUME (BEAKER) (test mhtt=019) 95.6 fL 79.4-94.8 MEAN CORPUSCULAR HEMOGLOBIN (BEAKER) (test 30.1 pg 25.6-32.2 tpan=127) MEAN CORPUSCULAR HEMOGLOBIN CONC (BEAKER) (test 31.5 GM/DL 32.2-35.5 ovog=890) RED CELL DISTRIBUTION WIDTH (BEAKER) (test 13.0 % 11.7-14.4 rrjg=742) PLATELET COUNT (BEAKER) (test nrsb=019) 315 K/CU MM 150-450 MEAN PLATELET VOLUME (BEAKER) (test mkml=608) 11.3 fL 9.4-12.3 NUCLEATED RED BLOOD CELLS (BEAKER) (test 0 /100 WBC 0-0 jvbx=231) NEUTROPHILS RELATIVE PERCENT (BEAKER) (test 68 % lnnk=727) LYMPHOCYTES RELATIVE PERCENT (BEAKER) (test 21 % babe=591) MONOCYTES RELATIVE PERCENT (BEAKER) (test 9 % osva=859) EOSINOPHILS RELATIVE PERCENT (BEAKER) (test 1 % mtol=210) BASOPHILS RELATIVE PERCENT (BEAKER) (test 0 % dxsc=742) NEUTROPHILS ABSOLUTE COUNT (BEAKER) (test 6.45 K/ L 1.56-6.13 gcve=718) LYMPHOCYTES ABSOLUTE COUNT (BEAKER) (test 1.98 K/ L 1.18-3.74 lctz=328) MONOCYTES ABSOLUTE COUNT (BEAKER) (test 0.82 K/ L 0.24-0.36 eibz=818) EOSINOPHILS ABSOLUTE COUNT (BEAKER) (test 0.11 K/ L 0.04-0.36 yhha=887) BASOPHILS ABSOLUTE COUNT (BEAKER) (test 0.04 K/ L 0.01-0.08 lkhm=301) IMMATURE GRANULOCYTES-RELATIVE PERCENT (BEAKER) 0 % 0-1 (test fwzv=8990) POCT-GLUCOSE [id number] 22:07:00 Test Item Value Reference Range Comments POC-GLUCOSE METER (BEAKER) 109 mg/dL 70-110 TESTED AT [address] (test bkod=3846) [place] [address] POCT-GLUCOSE [id number] 21:48:00 Test Item Value Reference Range Comments POC-GLUCOSE METER (BEAKER) 41 mg/dL 70-110 Notified SAMAN HERNANDEZ/TESTED AT [facility] (test hrut=5561) [address] [place], [place] [id number] POCT-GLUCOSE [id number] 21:34:00 Test Item Value Reference Range Comments POC-GLUCOSE METER (BEAKER) 31 mg/dL 70-110 TESTED AT [address] (test nzov=8491) [place] [id number] POCT-GLUCOSE [id number] 21:09:00 Test Item Value Reference Range Comments POC-GLUCOSE METER (BEAKER) 227 mg/dL 70-110 TESTED AT [address] (test ebiv=1370) [place] [address] RAD, CHEST, 1 VIEW, NON [id number] 19:03:00Reason for exam:->PICC LINE TIP VERIFICATIONShould this [...] MDReport Verified Date/Time: 02/01/2018 19:03:06 Reading Location: [facility] C013W Consult Reading Room BASI METABOLIC [id number] 18:09:00 Test Item Value Reference Range Comments SODIUM (BEAKER) (test 132 meq/L 136-145 eqcs=583) POTASSIUM (BEAKER) (test 4.8 meq/L 3.5-5.1 mvye=424) CHLORIDE (BEAKER) (test 99 meq/L 98-107 yhyu=924) CO2 (BEAKER) (test 18 meq/L 22-29 omuf=156) BLOOD UREA NITROGEN 83 mg/dL 7-21 (BEAKER) (test kdqs=622) CREATININE (BEAKER) (test 3.12 mg/dL 0.57-1.25 jlfy=490) GLUCOSE RANDOM (BEAKER) 233 mg/dL 70-105 (test pvaj=597) CALCIUM (BEAKER) (test 8.8 mg/dL 8.4-10.2 jwwn=055) EGFR (BEAKER) (test 15 mL/min/1.73 sq m ESTIMATED GFR IS NOT wmql=8715) ACCURATE CREATININE CLEARANCE IN PREDICTING GLOMERULAR FILTRATION RATE. ESTIMATED GFR IS NOT APPLICABLE FOR DIALYSIS PATIENTS. [id number] 17:51:00 Test Item Value Reference Range Comments PROTIME (BEAKER) (test sibf=027) 14.5 seconds 11.7-14.7 INR (BEAKER) (test jeyb=846) 1.1 <=5.9 PARTIAL THROMBOPLASTIN TIME (BEAKER) (test 30.0 seconds 22.5-36.0 psxi=839) RECOMMENDED COUMADIN/WARFARIN INR THERAPY RANGESSTANDARD DOSE: 2.0 - 3.0 Includes: PROPHYLAXIS forvenous thrombosis, systemic embolization; TREATMENT for venous thrombosis and/or pulmonary embolus.HIGH RISK: Target INR is 2.5-3.5 for patients with mechanical heart valves.CBC W/PLT COUNT & AUTO [id number] 17:41:00 Test Item Value Reference Range Comments WHITE BLOOD CELL COUNT (BEAKER) (test qxch=229) 9.5 K/ L 3.5-10.5 RED BLOOD CELL COUNT (BEAKER) (test qhbm=606) 2.80 M/ L 3.93-5.22 HEMOGLOBIN (BEAKER) (test xldy=190) 8.6 GM/DL 11.2-15.7 HEMATOCRIT (BEAKER) (test vyuo=720) 28.3 % 34.1-44.9 MEAN CORPUSCULAR VOLUME (BEAKER) (test traq=241) 101.1 fL 79.4-94.8 MEAN CORPUSCULAR HEMOGLOBIN (BEAKER) (test 30.7 pg 25.6-32.2 fsjd=816) MEAN CORPUSCULAR HEMOGLOBIN CONC (BEAKER) (test 30.4 GM/DL 32.2-35.5 gnto=604) RED CELL DISTRIBUTION WIDTH (BEAKER) (test 13.0 % 11.7-14.4 dscp=560) PLATELET COUNT (BEAKER) (test jmqr=215) 330 K/CU MM 150-450 MEAN PLATELET VOLUME (BEAKER) (test izoo=814) 11.1 fL 9.4-12.3 NUCLEATED RED BLOOD CELLS (BEAKER) (test 0 /100 WBC 0-0 txkv=723) NEUTROPHILS RELATIVE PERCENT (BEAKER) (test 67 % kvbq=820) LYMPHOCYTES RELATIVE PERCENT (BEAKER) (test 23 % jijx=322) MONOCYTES RELATIVE PERCENT (BEAKER) (test 9 % yire=674) EOSINOPHILS RELATIVE PERCENT (BEAKER) (test 1 % zbqd=047) BASOPHILS RELATIVE PERCENT (BEAKER) (test 0 % qhfr=743) NEUTROPHILS ABSOLUTE COUNT (BEAKER) (test 6.30 K/ L 1.56-6.13 zzdi=699) LYMPHOCYTES ABSOLUTE COUNT (BEAKER) (test 2.13 K/ L 1.18-3.74 kini=182) MONOCYTES ABSOLUTE COUNT (BEAKER) (test 0.82 K/ L 0.24-0.36 pkzg=888) EOSINOPHILS ABSOLUTE COUNT (BEAKER) (test 0.13 K/ L 0.04-0.36 zkcz=608) BASOPHILS ABSOLUTE COUNT (BEAKER) (test 0.03 K/ L 0.01-0.08 itbh=800) IMMATURE GRANULOCYTES-RELATIVE PERCENT (BEAKER) 1 % 0-1 (test ospn=0842) RAD, ANKLE, MIN 3 VIEWS, [id number] 15:39:00Reason for exam:->ankle fractureFINAL REPORT Left ankle. [...] MDReport Verified Date/Time: 02/01/2018 15:39:13 Reading Location: [facility] Diagnostic Imaging Reading Room - [place] [address] POCT-GLUCOSE [id number] 17:18:00 Test Item Value Reference Range Comments POC-GLUCOSE METER (BEAKER) 100 mg/dL 70-110 TESTED AT [address] (test zujp=1415) [facility] [address] POCT-GLUCOSE [id number] 17:18:00 Test Item Value Reference Range Comments POC-GLUCOSE METER (BEAKER) 68 mg/dL 70-110 Notified SAMAN HERNANDEZ/TESTED AT [facility] (test syll=6195) [address] [place] [address] POCT-GLUCOSE [id number] 11:52:00 Test Item Value Reference Range Comments POC-GLUCOSE METER (BEAKER) 138 mg/dL 70-110 TESTED AT [address] (test oxjo=8002) [facility] [address] POCT-GLUCOSE [id number] 08:26:00 Test Item Value Reference Range Comments POC-GLUCOSE METER (BEAKER) 251 mg/dL 70-110 TESTED AT [facility] [address] (test jyei=5429) [place] [address] CBC W/PLT COUNT & AUTO [id number] 06:24:00 Test Item Value Reference Range Comments WHITE BLOOD CELL COUNT (BEAKER) (test idpz=580) 8.3 K/ L 3.5-10.5 RED BLOOD CELL COUNT (BEAKER) (test rsck=593) 2.94 M/ L 3.93-5.22 HEMOGLOBIN (BEAKER) (test ncaw=519) 9.2 GM/DL 11.2-15.7 HEMATOCRIT (BEAKER) (test born=148) 29.1 % 34.1-44.9 MEAN CORPUSCULAR VOLUME (BEAKER) (test yknk=567) 99.0 fL 79.4-94.8 MEAN CORPUSCULAR HEMOGLOBIN (BEAKER) (test 31.3 pg 25.6-32.2 rhnp=252) MEAN CORPUSCULAR HEMOGLOBIN CONC (BEAKER) (test 31.6 GM/DL 32.2-35.5 nmew=182) RED CELL DISTRIBUTION WIDTH (BEAKER) (test 11.9 % 11.7-14.4 brwd=587) PLATELET COUNT (BEAKER) (test xysx=450) 293 K/CU MM 150-450 MEAN PLATELET VOLUME (BEAKER) (test ikvn=098) 12.7 fL 9.4-12.3 NUCLEATED RED BLOOD CELLS (BEAKER) (test 0 /100 WBC 0-0 mqzn=424) NEUTROPHILS RELATIVE PERCENT (BEAKER) (test 63 % zevu=445) LYMPHOCYTES RELATIVE PERCENT (BEAKER) (test 20 % frpn=500) MONOCYTES RELATIVE PERCENT (BEAKER) (test 10 % qmnv=894) EOSINOPHILS RELATIVE PERCENT (BEAKER) (test 6 % daoi=243) BASOPHILS RELATIVE PERCENT (BEAKER) (test 1 % pfjd=545) NEUTROPHILS ABSOLUTE COUNT (BEAKER) (test 5.21 K/ L 1.56-6.13 hvmu=590) LYMPHOCYTES ABSOLUTE COUNT (BEAKER) (test 1.67 K/ L 1.18-3.74 tbel=961) MONOCYTES ABSOLUTE COUNT (BEAKER) (test 0.86 K/ L 0.24-0.36 wxhy=397) EOSINOPHILS ABSOLUTE COUNT (BEAKER) (test 0.47 K/ L 0.04-0.36 qhgm=194) BASOPHILS ABSOLUTE COUNT (BEAKER) (test 0.05 K/ L 0.01-0.08 kthe=130) IMMATURE GRANULOCYTES-RELATIVE PERCENT (BEAKER) 1 % 0-1 (test ifca=4915) POCT-GLUCOSE [id number] 21:03:00 Test Item Value Reference Range Comments POC-GLUCOSE METER (BEAKER) 354 mg/dL 70-110 TESTED AT [address] (test lgei=7334) [place] [id number] POCT-GLUCOSE [id number] 18:07:00 Test Item Value Reference Range Comments POC-GLUCOSE METER (BEAKER) 309 mg/dL 70-110 TESTED AT [address] (test qfes=6091) [place] [id number] POCT-GLUCOSE [id number] 12:25:00 Test Item Value Reference Range Comments POC-GLUCOSE METER (BEAKER) 253 mg/dL 70-110 TESTED AT [address] (test nlej=2705) [place] [id number] POCT-GLUCOSE [id number] 08:01:00 Test Item Value Reference Range Comments POC-GLUCOSE METER (BEAKER) 305 mg/dL 70-110 Notified SAMAN HERNANDEZ/TESTED AT [facility] (test arex=2063) [address] [place] [address] [id number] 06:41:00 Test Item Value Reference Range Comments MAGNESIUM (BEAKER) (test aynn=440) 1.9 mg/dL 1.6-2.6 BASIC METABOLIC [id number] 06:41:00 Test Item Value Reference Range Comments SODIUM (BEAKER) (test 130 meq/L 136-145 rkuh=703) POTASSIUM (BEAKER) (test 4.7 meq/L 3.5-5.1 chkb=484) CHLORIDE (BEAKER) (test 97 meq/L 98-107 jqiq=058) CO2 (BEAKER) (test 25 meq/L 22-29 zspo=657) BLOOD UREA NITROGEN 25 mg/dL 7-21 (BEAKER) (test mulh=616) CREATININE (BEAKER) (test 0.91 mg/dL 0.57-1.25 rdzg=851) GLUCOSE RANDOM (BEAKER) 260 mg/dL 70-105 (test lyek=603) CALCIUM (BEAKER) (test 8.7 mg/dL 8.4-10.2 xqao=598) EGFR (BEAKER) (test 62 mL/min/1.73 sq m ESTIMATED GFR IS NOT exug=7752) ACCURATE CREATININE CLEARANCE IN PREDICTING GLOMERULAR FILTRATION RATE. ESTIMATED GFR IS NOT APPLICABLE FOR DIALYSIS PATIENTS. CBC W/PLT COUNT & AUTO [id number] 06:10:00 Test Item Value Reference Range Comments WHITE BLOOD CELL COUNT (BEAKER) (test hfoc=576) 9.7 K/ L 3.5-10.5 RED BLOOD CELL COUNT (BEAKER) (test pjsb=150) 2.92 M/ L 3.93-5.22 HEMOGLOBIN (BEAKER) (test xjlq=958) 9.2 GM/DL 11.2-15.7 HEMATOCRIT (BEAKER) (test wogg=590) 28.8 % 34.1-44.9 MEAN CORPUSCULAR VOLUME (BEAKER) (test tjyv=902) 98.6 fL 79.4-94.8 MEAN CORPUSCULAR HEMOGLOBIN (BEAKER) (test 31.5 pg 25.6-32.2 zmuu=700) MEAN CORPUSCULAR HEMOGLOBIN CONC (BEAKER) (test 31.9 GM/DL 32.2-35.5 atvu=932) RED CELL DISTRIBUTION WIDTH (BEAKER) (test 12.1 % 11.7-14.4 yhzi=133) PLATELET COUNT (BEAKER) (test qsaz=255) 269 K/CU MM 150-450 MEAN PLATELET VOLUME (BEAKER) (test xmqe=923) 13.2 fL 9.4-12.3 NUCLEATED RED BLOOD CELLS (BEAKER) (test 0 /100 WBC 0-0 efgh=968) NEUTROPHILS RELATIVE PERCENT (BEAKER) (test 66 % zejz=495) LYMPHOCYTES RELATIVE PERCENT (BEAKER) (test 19 % govr=152) MONOCYTES RELATIVE PERCENT (BEAKER) (test 10 % tuqk=086) EOSINOPHILS RELATIVE PERCENT (BEAKER) (test 4 % pamd=216) BASOPHILS RELATIVE PERCENT (BEAKER) (test 0 % fvap=169) NEUTROPHILS ABSOLUTE COUNT (BEAKER) (test 6.35 K/ L 1.56-6.13 ibrx=060) LYMPHOCYTES ABSOLUTE COUNT (BEAKER) (test 1.87 K/ L 1.18-3.74 vkto=322) MONOCYTES ABSOLUTE COUNT (BEAKER) (test 0.93 K/ L 0.24-0.36 mntt=697) EOSINOPHILS ABSOLUTE COUNT (BEAKER) (test 0.43 K/ L 0.04-0.36 vdvu=908) BASOPHILS ABSOLUTE COUNT (BEAKER) (test 0.04 K/ L 0.01-0.08 aool=056) IMMATURE GRANULOCYTES-RELATIVE PERCENT (BEAKER) 1 % 0-1 (test rxri=6265) POCT-GLUCOSE [id number] 21:07:00 Test Item Value Reference Range Comments POC-GLUCOSE METER (BEAKER) 162 mg/dL 70-110 TESTED AT [address] (test awzq=5706) [place] [id number] POCT-GLUCOSE [id number] 17:50:00 Test Item Value Reference Range Comments POC-GLUCOSE METER (BEAKER) 286 mg/dL 70-110 TESTED AT [address] (test fuwk=2116) [place] [id number] POCT-GLUCOSE [id number] 13:33:00 Test Item Value Reference Range Comments POC-GLUCOSE METER (BEAKER) 123 mg/dL 70-110 TESTED AT [address] (test pqmp=2319) [place] [id number] POCT-GLUCOSE [id number] 09:09:00 Test Item Value Reference Range Comments POC-GLUCOSE METER (BEAKER) 209 mg/dL 70-110 TESTED AT [address] (test psng=0628) [place] [id number] 05:50:00 Test Item Value Reference Range Comments MAGNESIUM (BEAKER) (test zrge=104) 2.0 mg/dL 1.6-2.6 BASIC METABOLIC [id number] 05:50:00 Test Item Value Reference Range Comments SODIUM (BEAKER) (test 131 meq/L 136-145 rrpv=409) POTASSIUM (BEAKER) (test 4.9 meq/L 3.5-5.1 bkbl=292) CHLORIDE (BEAKER) (test 101 meq/L 98-107 smgu=278) CO2 (BEAKER) (test 23 meq/L 22-29 nibz=985) BLOOD UREA NITROGEN 23 mg/dL 7-21 (BEAKER) (test vlks=736) CREATININE (BEAKER) (test 0.99 mg/dL 0.57-1.25 klwt=600) GLUCOSE RANDOM (BEAKER) 173 mg/dL 70-105 (test geiq=667) CALCIUM (BEAKER) (test 9.0 mg/dL 8.4-10.2 jbjj=989) EGFR (BEAKER) (test 56 mL/min/1.73 sq m ESTIMATED GFR IS NOT eqzv=0246) ACCURATE CREATININE CLEARANCE IN PREDICTING GLOMERULAR FILTRATION RATE. ESTIMATED GFR IS NOT APPLICABLE FOR DIALYSIS PATIENTS. CBC W/PLT COUNT & AUTO [id number] 05:24:00 Test Item Value Reference Range Comments WHITE BLOOD CELL COUNT (BEAKER) (test hgcf=896) 8.8 K/ L 3.5-10.5 RED BLOOD CELL COUNT (BEAKER) (test niqh=334) 3.00 M/ L 3.93-5.22 HEMOGLOBIN (BEAKER) (test cotu=329) 9.6 GM/DL 11.2-15.7 HEMATOCRIT (BEAKER) (test hjjz=008) 29.9 % 34.1-44.9 MEAN CORPUSCULAR VOLUME (BEAKER) (test subh=386) 99.7 fL 79.4-94.8 MEAN CORPUSCULAR HEMOGLOBIN (BEAKER) (test 32.0 pg 25.6-32.2 laax=027) MEAN CORPUSCULAR HEMOGLOBIN CONC (BEAKER) (test 32.1 GM/DL 32.2-35.5 yomc=613) RED CELL DISTRIBUTION WIDTH (BEAKER) (test 12.4 % 11.7-14.4 ydxe=253) PLATELET COUNT (BEAKER) (test duxj=659) 245 K/CU MM 150-450 MEAN PLATELET VOLUME (BEAKER) (test wotp=937) 13.2 fL 9.4-12.3 NUCLEATED RED BLOOD CELLS (BEAKER) (test 0 /100 WBC 0-0 gacy=614) NEUTROPHILS RELATIVE PERCENT (BEAKER) (test 70 % bnnj=237) LYMPHOCYTES RELATIVE PERCENT (BEAKER) (test 16 % akdk=133) MONOCYTES RELATIVE PERCENT (BEAKER) (test 9 % pvqv=264) EOSINOPHILS RELATIVE PERCENT (BEAKER) (test 4 % cepw=257) BASOPHILS RELATIVE PERCENT (BEAKER) (test 1 % ckjc=840) NEUTROPHILS ABSOLUTE COUNT (BEAKER) (test 6.15 K/ L 1.56-6.13 hlrk=377) LYMPHOCYTES ABSOLUTE COUNT (BEAKER) (test 1.36 K/ L 1.18-3.74 nnvc=504) MONOCYTES ABSOLUTE COUNT (BEAKER) (test 0.83 K/ L 0.24-0.36 ejgu=890) EOSINOPHILS ABSOLUTE COUNT (BEAKER) (test 0.36 K/ L 0.04-0.36 uuym=546) BASOPHILS ABSOLUTE COUNT (BEAKER) (test 0.04 K/ L 0.01-0.08 vnex=999) IMMATURE GRANULOCYTES-RELATIVE PERCENT (BEAKER) 1 % 0-1 (test nhmv=0860) CT, CTA AAA, W/ VAN.EXT.[id number] 02:56:00Addendum BeginsREPORT STATUS:A Additional postcontrast images of the lower extremities were performed utilizing a runoff protocol. Signed: Kp Engle MDReport Verified Date/Time: 01/09/2018 02:56:14 Reading Location: [address] Reading RoomAddendum EndsFINAL REPORT CLINICAL HISTORY: [...] MDReport Verified Date/Time: 01/06/2018 19:53:17 Reading Location: [address] Reading Room Electronically signed by: KP ENGLE M.D. on 02:56 AMPOCT-GLUCOSE [id number] 20:28:00 Test Item Value Reference Range Comments POC-GLUCOSE METER (BEAKER) 177 mg/dL 70-110 TESTED AT [address] (test nfxf=4076) [place] [address] POCT-GLUCOSE [id number] 17:37:00 Test Item Value Reference Range Comments POC-GLUCOSE METER (BEAKER) 123 mg/dL 70-110 TESTED AT [address] (test htwb=3222) [place] [address] GLUCOSE-STAT [id number] 15:11:00 Test Item Value Reference Range Comments GLUCOSE RANDOM (BEAKER) (test usgf=911) 112 mg/dL 70-110 HGB/HCT (H&H) - STAT [id number] 15:11:00 Test Item Value Reference Range Comments HEMOGLOBIN (BEAKER) (test pill=016) 11.0 g/dL 12.0-15.0 HEMATOCRIT (BEAKER) (test bzgy=450) 32.0 % 36.0-45.0 POCT-GLUCOSE [id number] 08:21:00 Test Item Value Reference Range Comments POC-GLUCOSE METER (BEAKER) 123 mg/dL 70-110 TESTED AT [address] (test otzi=3323) [place] [address] [id number] 05:17:00 Test Item Value Reference Range Comments MAGNESIUM (BEAKER) (test vbkv=704) 2.2 mg/dL 1.6-2.6 BASIC METABOLIC [id number] 05:17:00 Test Item Value Reference Range Comments SODIUM (BEAKER) (test 132 meq/L 136-145 ctuf=346) POTASSIUM (BEAKER) (test 4.6 meq/L 3.5-5.1 mtsy=996) CHLORIDE (BEAKER) (test 99 meq/L 98-107 csar=220) CO2 (BEAKER) (test 25 meq/L 22-29 aukd=992) BLOOD UREA NITROGEN 25 mg/dL 7-21 (BEAKER) (test nnpp=368) CREATININE (BEAKER) (test 0.85 mg/dL 0.57-1.25 isxz=527) GLUCOSE RANDOM (BEAKER) 102 mg/dL 70-105 (test fcxc=260) CALCIUM (BEAKER) (test 9.1 mg/dL 8.4-10.2 mujn=271) EGFR (BEAKER) (test 67 mL/min/1.73 sq m ESTIMATED GFR IS NOT dedf=5324) ACCURATE CREATININE CLEARANCE IN PREDICTING GLOMERULAR FILTRATION RATE. ESTIMATED GFR IS NOT APPLICABLE FOR DIALYSIS PATIENTS. [id number] 05:11:00 Test Item Value Reference Range Comments PROTIME (BEAKER) (test tluc=621) 14.1 seconds 11.7-14.7 INR (BEAKER) (test nqyh=306) 1.1 <=5.9 PARTIAL THROMBOPLASTIN TIME (BEAKER) (test 34.5 seconds 22.5-36.0 cczh=081) RECOMMENDED COUMADIN/WARFARIN INR THERAPY RANGESSTANDARD DOSE: 2.0 - 3.0 Includes: PROPHYLAXIS forvenous thrombosis, systemic embolization; TREATMENT for venous thrombosis and/or pulmonary embolus.HIGH RISK: Target INR is 2.5-3.5 for patients with mechanical heart valves.[id number] 05:11:00 Test Item Value Reference Range Comments PARTIAL THROMBOPLASTIN TIME (BEAKER) (test 34.5 seconds 22.5-36.0 yyjh=646) CBC W/PLT COUNT & AUTO [id number] 04:57:00 Test Item Value Reference Range Comments WHITE BLOOD CELL COUNT (BEAKER) (test jlkd=119) 8.9 K/ L 3.5-10.5 RED BLOOD CELL COUNT (BEAKER) (test dlrd=340) 3.57 M/ L 3.93-5.22 HEMOGLOBIN (BEAKER) (test xkuf=908) 11.1 GM/DL 11.2-15.7 HEMATOCRIT (BEAKER) (test qlua=718) 34.9 % 34.1-44.9 MEAN CORPUSCULAR VOLUME (BEAKER) (test vbdq=813) 97.8 fL 79.4-94.8 MEAN CORPUSCULAR HEMOGLOBIN (BEAKER) (test 31.1 pg 25.6-32.2 npxb=210) MEAN CORPUSCULAR HEMOGLOBIN CONC (BEAKER) (test 31.8 GM/DL 32.2-35.5 oeat=528) RED CELL DISTRIBUTION WIDTH (BEAKER) (test 12.3 % 11.7-14.4 cqpp=049) PLATELET COUNT (BEAKER) (test riby=180) 267 K/CU MM 150-450 MEAN PLATELET VOLUME (BEAKER) (test atpz=425) 13.3 fL 9.4-12.3 NUCLEATED RED BLOOD CELLS (BEAKER) (test 0 /100 WBC 0-0 hjsd=114) NEUTROPHILS RELATIVE PERCENT (BEAKER) (test 64 % eakf=592) LYMPHOCYTES RELATIVE PERCENT (BEAKER) (test 21 % ifxq=491) MONOCYTES RELATIVE PERCENT (BEAKER) (test 10 % xden=938) EOSINOPHILS RELATIVE PERCENT (BEAKER) (test 4 % bxyp=122) BASOPHILS RELATIVE PERCENT (BEAKER) (test 0 % luvx=702) NEUTROPHILS ABSOLUTE COUNT (BEAKER) (test 5.72 K/ L 1.56-6.13 kcrd=989) LYMPHOCYTES ABSOLUTE COUNT (BEAKER) (test 1.90 K/ L 1.18-3.74 ktkd=978) MONOCYTES ABSOLUTE COUNT (BEAKER) (test 0.87 K/ L 0.24-0.36 deaa=984) EOSINOPHILS ABSOLUTE COUNT (BEAKER) (test 0.33 K/ L 0.04-0.36 eobq=734) BASOPHILS ABSOLUTE COUNT (BEAKER) (test 0.04 K/ L 0.01-0.08 grpy=399) IMMATURE GRANULOCYTES-RELATIVE PERCENT (BEAKER) 1 % 0-1 (test guga=1022) POCT-GLUCOSE [id number] 20:47:00 Test Item Value Reference Range Comments POC-GLUCOSE METER (BEAKER) 131 mg/dL 70-110 TESTED AT [address] (test woow=5063) [facility] [address] POCT-GLUCOSE [id number] 16:03:00 Test Item Value Reference Range Comments POC-GLUCOSE METER (BEAKER) 174 mg/dL 70-110 TESTED AT [address] (test jgrg=9920) [facility] [address] POCT-GLUCOSE [id number] 13:49:00 Test Item Value Reference Range Comments POC-GLUCOSE METER (BEAKER) 100 mg/dL 70-110 TESTED AT [address] (test zoqz=8294) [place] [id number] POCT-GLUCOSE [id number] 13:05:00 Test Item Value Reference Range Comments POC-GLUCOSE METER (BEAKER) 70 mg/dL 70-110 TESTED AT [address] (test rbxh=1887) [place] [id number] POCT-GLUCOSE [id number] 08:23:00 Test Item Value Reference Range Comments POC-GLUCOSE METER (BEAKER) 142 mg/dL 70-110 TESTED AT [address] (test afww=3148) [place] [id number] 07:10:00 Test Item Value Reference Range Comments MAGNESIUM (BEAKER) (test zdke=491) 1.9 mg/dL 1.6-2.6 BASIC METABOLIC [id number] 07:10:00 Test Item Value Reference Range Comments SODIUM (BEAKER) (test 131 meq/L 136-145 ymte=730) POTASSIUM (BEAKER) (test 4.2 meq/L 3.5-5.1 erzt=744) CHLORIDE (BEAKER) (test 97 meq/L 98-107 wjfc=855) CO2 (BEAKER) (test 25 meq/L 22-29 ufqp=394) BLOOD UREA NITROGEN 22 mg/dL 7-21 (BEAKER) (test wvma=439) CREATININE (BEAKER) (test 0.78 mg/dL 0.57-1.25 awmn=902) GLUCOSE RANDOM (BEAKER) 167 mg/dL 70-105 (test nwuc=516) CALCIUM (BEAKER) (test 9.1 mg/dL 8.4-10.2 mgzj=606) EGFR (BEAKER) (test 74 mL/min/1.73 sq m ESTIMATED GFR IS NOT kxir=5357) ACCURATE CREATININE CLEARANCE IN PREDICTING GLOMERULAR FILTRATION RATE. ESTIMATED GFR IS NOT APPLICABLE FOR DIALYSIS PATIENTS. CBC W/PLT COUNT & AUTO [id number] 06:39:00 Test Item Value Reference Range Comments WHITE BLOOD CELL COUNT (BEAKER) (test svzs=839) 8.3 K/ L 3.5-10.5 RED BLOOD CELL COUNT (BEAKER) (test yxnk=119) 3.59 M/ L 3.93-5.22 HEMOGLOBIN (BEAKER) (test eyah=588) 11.4 GM/DL 11.2-15.7 HEMATOCRIT (BEAKER) (test rzqw=173) 35.1 % 34.1-44.9 MEAN CORPUSCULAR VOLUME (BEAKER) (test dzwr=856) 97.8 fL 79.4-94.8 MEAN CORPUSCULAR HEMOGLOBIN (BEAKER) (test 31.8 pg 25.6-32.2 ufoc=241) MEAN CORPUSCULAR HEMOGLOBIN CONC (BEAKER) (test 32.5 GM/DL 32.2-35.5 hkbq=229) RED CELL DISTRIBUTION WIDTH (BEAKER) (test 12.4 % 11.7-14.4 oros=344) PLATELET COUNT (BEAKER) (test onzu=159) 249 K/CU MM 150-450 MEAN PLATELET VOLUME (BEAKER) (test ecge=003) 13.4 fL 9.4-12.3 NUCLEATED RED BLOOD CELLS (BEAKER) (test 0 /100 WBC 0-0 xzjr=718) NEUTROPHILS RELATIVE PERCENT (BEAKER) (test 66 % uyzn=488) LYMPHOCYTES RELATIVE PERCENT (BEAKER) (test 21 % lnjz=301) MONOCYTES RELATIVE PERCENT (BEAKER) (test 9 % vwwi=517) EOSINOPHILS RELATIVE PERCENT (BEAKER) (test 3 % mofn=381) BASOPHILS RELATIVE PERCENT (BEAKER) (test 0 % awyy=066) NEUTROPHILS ABSOLUTE COUNT (BEAKER) (test 5.53 K/ L 1.56-6.13 aoqf=704) LYMPHOCYTES ABSOLUTE COUNT (BEAKER) (test 1.71 K/ L 1.18-3.74 ulhf=339) MONOCYTES ABSOLUTE COUNT (BEAKER) (test 0.76 K/ L 0.24-0.36 ugwz=697) EOSINOPHILS ABSOLUTE COUNT (BEAKER) (test 0.25 K/ L 0.04-0.36 zyfl=416) BASOPHILS ABSOLUTE COUNT (BEAKER) (test 0.03 K/ L 0.01-0.08 iggu=209) IMMATURE GRANULOCYTES-RELATIVE PERCENT (BEAKER) 1 % 0-1 (test ghtd=0733) POCT-GLUCOSE [id number] 22:13:00 Test Item Value Reference Range Comments POC-GLUCOSE METER (BEAKER) 278 mg/dL 70-110 TESTED AT [facility] [address] [facility] (test ryrq=6666) [facility] [address] POCT-GLUCOSE [id number] 16:21:00 Test Item Value Reference Range Comments POC-GLUCOSE METER (BEAKER) 117 mg/dL 70-110 TESTED AT [address] (test ytju=7741) [place] [id number] POCT-GLUCOSE [id number] 12:15:00 Test Item Value Reference Range Comments POC-GLUCOSE METER (BEAKER) 126 mg/dL 70-110 TESTED AT [address] (test dusf=8169) [place] [address] B-TYPE NATRIURETIC FACTOR (BNP)2018-01-06 08:18:00 Test Item Value Reference Range Comments B-TYPE NATRIURETIC PEPTIDE (BEAKER) (test nzhx=856) 93 pg/mL 0-100 [id number] 07:52:00 Test Item Value Reference Range Comments MAGNESIUM (BEAKER) (test bgnl=414) 1.8 mg/dL 1.6-2.6 BASIC METABOLIC [id number] 07:52:00 Test Item Value Reference Range Comments SODIUM (BEAKER) (test 133 meq/L 136-145 qqwp=732) POTASSIUM (BEAKER) (test 4.0 meq/L 3.5-5.1 wpep=114) CHLORIDE (BEAKER) (test 99 meq/L 98-107 hqcs=411) CO2 (BEAKER) (test 26 meq/L 22-29 kbql=333) BLOOD UREA NITROGEN 19 mg/dL 7-21 (BEAKER) (test jopw=217) CREATININE (BEAKER) (test 0.72 mg/dL 0.57-1.25 waoy=417) GLUCOSE RANDOM (BEAKER) 193 mg/dL 70-105 (test ofsq=238) CALCIUM (BEAKER) (test 9.3 mg/dL 8.4-10.2 uvjx=238) EGFR (BEAKER) (test 81 mL/min/1.73 sq m ESTIMATED GFR IS NOT gdnv=1660) ACCURATE CREATININE CLEARANCE IN PREDICTING GLOMERULAR FILTRATION RATE. ESTIMATED GFR IS NOT APPLICABLE FOR DIALYSIS PATIENTS. POCT-GLUCOSE [id number] 07:38:00 Test Item Value Reference Range Comments POC-GLUCOSE METER (BEAKER) 204 mg/dL 70-110 TESTED AT [facility] [address] [facility] (test hnys=0036) [facility] [address] CBC W/PLT COUNT & AUTO [id number] 07:36:00 Test Item Value Reference Range Comments WHITE BLOOD CELL COUNT (BEAKER) (test rohj=839) 10.2 K/ L 3.5-10.5 RED BLOOD CELL COUNT (BEAKER) (test rjuj=510) 3.73 M/ L 3.93-5.22 HEMOGLOBIN (BEAKER) (test ltvn=175) 11.9 GM/DL 11.2-15.7 HEMATOCRIT (BEAKER) (test pbcb=221) 36.0 % 34.1-44.9 MEAN CORPUSCULAR VOLUME (BEAKER) (test vtgh=287) 96.5 fL 79.4-94.8 MEAN CORPUSCULAR HEMOGLOBIN (BEAKER) (test 31.9 pg 25.6-32.2 guao=870) MEAN CORPUSCULAR HEMOGLOBIN CONC (BEAKER) (test 33.1 GM/DL 32.2-35.5 jexf=328) RED CELL DISTRIBUTION WIDTH (BEAKER) (test 12.5 % 11.7-14.4 fpsi=982) PLATELET COUNT (BEAKER) (test qzta=052) 246 K/CU MM 150-450 MEAN PLATELET VOLUME (BEAKER) (test lggy=891) 13.4 fL 9.4-12.3 NUCLEATED RED BLOOD CELLS (BEAKER) (test 0 /100 WBC 0-0 gnqt=697) NEUTROPHILS RELATIVE PERCENT (BEAKER) (test 71 % qxqf=837) LYMPHOCYTES RELATIVE PERCENT (BEAKER) (test 19 % zjrc=229) MONOCYTES RELATIVE PERCENT (BEAKER) (test 8 % esqm=396) EOSINOPHILS RELATIVE PERCENT (BEAKER) (test 2 % kwux=270) BASOPHILS RELATIVE PERCENT (BEAKER) (test 0 % zjlz=024) NEUTROPHILS ABSOLUTE COUNT (BEAKER) (test 7.29 K/ L 1.56-6.13 iqvt=793) LYMPHOCYTES ABSOLUTE COUNT (BEAKER) (test 1.93 K/ L 1.18-3.74 hahg=015) MONOCYTES ABSOLUTE COUNT (BEAKER) (test 0.81 K/ L 0.24-0.36 drjm=329) EOSINOPHILS ABSOLUTE COUNT (BEAKER) (test 0.15 K/ L 0.04-0.36 zhcg=092) BASOPHILS ABSOLUTE COUNT (BEAKER) (test 0.03 K/ L 0.01-0.08 xyrf=282) IMMATURE GRANULOCYTES-RELATIVE PERCENT (BEAKER) 0 % 0-1 (test wjlw=4341) POCT-GLUCOSE [id number] 22:01:00 Test Item Value Reference Range Comments POC-GLUCOSE METER (BEAKER) 281 mg/dL 70-110 TESTED AT [address] (test zdjh=1427) [facility] [address] RAD, CHEST, 1 VIEW, NON [id number] 17:19:00Reason for exam:-> hypoxiaShould this be performed [...] No acute osseous abnormality. Signed: Chandra Sterling [facility] Verified Date/Time: 01/05/2018 17:19:47 Reading Location: [facility] POCT-GLUCOSE [id number] 17:18:00 Test Item Value Reference Range Comments POC-GLUCOSE METER (BEAKER) 340 mg/dL 70-110 TESTED AT [address] (test czgl=4449) [facility] [address] POCT-GLUCOSE [id number] 13:18:00 Test Item Value Reference Range Comments POC-GLUCOSE METER (BEAKER) 333 mg/dL 70-110 Notified SAMAN HERNANDEZ/TESTED AT [facility] (test jfyn=4715) [address] [place] [address] RAD, ANKLE, 2 VIEWS, [id number] 11:18:00Reason for exam:->left ankle ORIFShould this be [...] the left ankle as above. Signed: Macie Fraireeport Verified Date/Time: 01/05/2018 11:18:34 Reading Location: [facility] RadiologyReading Room HEMOGLOBIN [id number] 09:50:00 Test Item Value Reference Range Comments HEMOGLOBIN A1C (BEAKER) (test qhnn=533) 13.1 % 4.3-6.1 POCT-GLUCOSE [id number] 08:58:00 Test Item Value Reference Range Comments POC-GLUCOSE METER (BEAKER) 241 mg/dL 70-110 TESTED AT [address] (test spne=4654) [facility] [address] [id number] 05:32:00 Test Item Value Reference Range Comments MAGNESIUM (BEAKER) (test mqvc=023) 1.5 mg/dL 1.6-2.6 BASIC METABOLIC [id number] 05:32:00 Test Item Value Reference Range Comments SODIUM (BEAKER) (test 130 meq/L 136-145 huet=048) POTASSIUM (BEAKER) (test 3.5 meq/L 3.5-5.1 khdl=080) CHLORIDE (BEAKER) (test 96 meq/L 98-107 gmzf=354) CO2 (BEAKER) (test 26 meq/L 22-29 lfdk=370) BLOOD UREA NITROGEN 17 mg/dL 7-21 (BEAKER) (test lhfo=230) CREATININE (BEAKER) (test 0.77 mg/dL 0.57-1.25 nvpe=803) GLUCOSE RANDOM (BEAKER) 221 mg/dL 70-105 (test suak=237) CALCIUM (BEAKER) (test 8.7 mg/dL 8.4-10.2 fiag=715) EGFR (BEAKER) (test 75 mL/min/1.73 sq m ESTIMATED GFR IS NOT azjc=3590) ACCURATE CREATININE CLEARANCE IN PREDICTING GLOMERULAR FILTRATION RATE. ESTIMATED GFR IS NOT APPLICABLE FOR DIALYSIS PATIENTS. HEPATIC FUNCTION [id number] 05:32:00 Test Item Value Reference Range Comments TOTAL PROTEIN (BEAKER) (test aowy=143) 6.8 gm/dL 6.0-8.3 ALBUMIN (BEAKER) (test vwwq=6498) 3.0 g/dL 3.5-5.0 BILIRUBIN TOTAL (BEAKER) (test gbij=956) 0.6 mg/dL 0.2-1.2 BILIRUBIN DIRECT (BEAKER) (test hrld=159) 0.3 mg/dL 0.1-0.5 ALKALINE PHOSPHATASE (BEAKER) (test iagk=399) 216 U/L 40-150 AST (SGOT) (BEAKER) (test fjvi=161) 26 U/L 5-34 ALT (SGPT) (BEAKER) (test ujhr=084) 32 U/L 6-55 PROTHROMBIN [id number] 05:12:00 Test Item Value Reference Range Comments PROTIME (BEAKER) (test ovjw=115) 14.2 seconds 11.7-14.7 INR (BEAKER) (test oilr=715) 1.1 <=5.9 RECOMMENDED COUMADIN/WARFARIN INR THERAPY RANGESSTANDARD DOSE: 2.0 - 3.0 Includes: PROPHYLAXIS forvenous thrombosis, systemic embolization; TREATMENT for venous thrombosis and/or pulmonary embolus.HIGH RISK: Target INR is 2.5-3.5 for patients with mechanical heart valves.CBC W/PLT COUNT & AUTO [id number] 05:06:00 Test Item Value Reference Range Comments WHITE BLOOD CELL COUNT (BEAKER) (test afnz=552) 10.1 K/ L 3.5-10.5 RED BLOOD CELL COUNT (BEAKER) (test fztz=387) 3.87 M/ L 3.93-5.22 HEMOGLOBIN (BEAKER) (test tuki=992) 12.3 GM/DL 11.2-15.7 HEMATOCRIT (BEAKER) (test cjbn=734) 37.3 % 34.1-44.9 MEAN CORPUSCULAR VOLUME (BEAKER) (test ctpa=430) 96.4 fL 79.4-94.8 MEAN CORPUSCULAR HEMOGLOBIN (BEAKER) (test 31.8 pg 25.6-32.2 lutx=294) MEAN CORPUSCULAR HEMOGLOBIN CONC (BEAKER) (test 33.0 GM/DL 32.2-35.5 vfcp=751) RED CELL DISTRIBUTION WIDTH (BEAKER) (test 12.5 % 11.7-14.4 fqsq=772) PLATELET COUNT (BEAKER) (test tigc=098) 229 K/CU MM 150-450 MEAN PLATELET VOLUME (BEAKER) (test xaqj=204) 13.4 fL 9.4-12.3 NUCLEATED RED BLOOD CELLS (BEAKER) (test 0 /100 WBC 0-0 wzpf=282) NEUTROPHILS RELATIVE PERCENT (BEAKER) (test 75 % kvhn=571) LYMPHOCYTES RELATIVE PERCENT (BEAKER) (test 15 % ywlm=622) MONOCYTES RELATIVE PERCENT (BEAKER) (test 8 % iclc=596) EOSINOPHILS RELATIVE PERCENT (BEAKER) (test 2 % bnvy=409) BASOPHILS RELATIVE PERCENT (BEAKER) (test 0 % lzmt=300) NEUTROPHILS ABSOLUTE COUNT (BEAKER) (test 7.56 K/ L 1.56-6.13 wgrj=998) LYMPHOCYTES ABSOLUTE COUNT (BEAKER) (test 1.48 K/ L 1.18-3.74 utmc=413) MONOCYTES ABSOLUTE COUNT (BEAKER) (test 0.80 K/ L 0.24-0.36 lpta=121) EOSINOPHILS ABSOLUTE COUNT (BEAKER) (test 0.20 K/ L 0.04-0.36 chzd=218) BASOPHILS ABSOLUTE COUNT (BEAKER) (test 0.02 K/ L 0.01-0.08 awlb=030) IMMATURE GRANULOCYTES-RELATIVE PERCENT (BEAKER) 0 % 0-1 (test dnoe=4389) SPUTUM CULTURE + GRAM [id number] 15:32:00 Test Item Value Reference Range Comments CULTURE (BEAKER) 4+ Haemophilus (test fdju=4228) influenzaeBeta-lactamase negative GRAM STAIN RESULT 4+ WBCs (BEAKER) (test ndkb=9689) GRAM STAIN RESULT 0-5 epithelial cells (BEAKER) (test pqff=613617) GRAM STAIN RESULT <1+ gram positive rods (BEAKER) (test zkbm=960661) GRAM STAIN RESULT 2+ gram positive cocci (BEAKER) (test in pairs npha=270511) 4+ Normal respiratory lor presentPOCT-GLUCOSE [id number] 12:42:00 Test Item Value Reference Range Comments POC-GLUCOSE METER (BEAKER) 302 mg/dL 70-110 Notified SAMAN HERNANDEZ/TESTED AT [facility] (test wpfe=8988) [address] [facility] [address] POCT-GLUCOSE [id number] 07:51:00 Test Item Value Reference Range Comments POC-GLUCOSE METER (BEAKER) 264 mg/dL 70-110 TESTED AT [address] (test dnbm=3276) [facility] [address] CALCIUM, [id number] 05:24:00 Test Item Value Reference Range Comments CALCIUM IONIZED (BEAKER) (test hykm=137) 1.11 mmol/L 1.12-1.27 PH, BLOOD (BEAKER) (test vuhd=4437) 7.47 [id number] 04:43:00 Test Item Value Reference Range Comments PHOSPHORUS (BEAKER) (test ywlp=773) 3.2 mg/dL 2.3-4.7 [id number] 04:43:00 Test Item Value Reference Range Comments MAGNESIUM (BEAKER) (test fozk=427) 1.3 mg/dL 1.6-2.6 BASIC METABOLIC [id number] 04:43:00 Test Item Value Reference Range Comments SODIUM (BEAKER) (test 137 meq/L 136-145 pqnb=096) POTASSIUM (BEAKER) (test 3.4 meq/L 3.5-5.1 xsak=039) CHLORIDE (BEAKER) (test 103 meq/L 98-107 ugtr=425) CO2 (BEAKER) (test 25 meq/L 22-29 bmdm=428) BLOOD UREA NITROGEN 22 mg/dL 7-21 (BEAKER) (test vzkg=035) CREATININE (BEAKER) (test 0.74 mg/dL 0.57-1.25 hjrd=336) GLUCOSE RANDOM (BEAKER) 237 mg/dL 70-105 (test ujrb=870) CALCIUM (BEAKER) (test 9.0 mg/dL 8.4-10.2 ldsx=511) EGFR (BEAKER) (test 79 mL/min/1.73 sq m ESTIMATED GFR IS NOT zbbf=7679) ACCURATE CREATININE CLEARANCE IN PREDICTING GLOMERULAR FILTRATION RATE. ESTIMATED GFR IS NOT APPLICABLE FOR DIALYSIS PATIENTS. CBC W/PLT COUNT & AUTO [id number] 04:05:00 Test Item Value Reference Range Comments WHITE BLOOD CELL COUNT (BEAKER) (test vild=049) 8.1 K/ L 3.5-10.5 RED BLOOD CELL COUNT (BEAKER) (test bcef=061) 3.43 M/ L 3.93-5.22 HEMOGLOBIN (BEAKER) (test qmwy=136) 10.9 GM/DL 11.2-15.7 HEMATOCRIT (BEAKER) (test saey=317) 32.2 % 34.1-44.9 MEAN CORPUSCULAR VOLUME (BEAKER) (test vcls=879) 93.9 fL 79.4-94.8 MEAN CORPUSCULAR HEMOGLOBIN (BEAKER) (test 31.8 pg 25.6-32.2 frmm=279) MEAN CORPUSCULAR HEMOGLOBIN CONC (BEAKER) (test 33.9 GM/DL 32.2-35.5 ouhe=062) RED CELL DISTRIBUTION WIDTH (BEAKER) (test 13.2 % 11.7-14.4 mkqx=904) PLATELET COUNT (BEAKER) (test lstx=838) 225 K/CU MM 150-450 MEAN PLATELET VOLUME (BEAKER) (test bgee=005) 12.9 fL 9.4-12.3 NUCLEATED RED BLOOD CELLS (BEAKER) (test 0 /100 WBC 0-0 blqv=585) NEUTROPHILS RELATIVE PERCENT (BEAKER) (test 60 % umrb=971) LYMPHOCYTES RELATIVE PERCENT (BEAKER) (test 26 % pyyv=620) MONOCYTES RELATIVE PERCENT (BEAKER) (test 8 % nzxe=548) EOSINOPHILS RELATIVE PERCENT (BEAKER) (test 6 % tpzw=612) BASOPHILS RELATIVE PERCENT (BEAKER) (test 0 % bclz=072) NEUTROPHILS ABSOLUTE COUNT (BEAKER) (test 4.83 K/ L 1.56-6.13 cllg=872) LYMPHOCYTES ABSOLUTE COUNT (BEAKER) (test 2.09 K/ L 1.18-3.74 kxoh=514) MONOCYTES ABSOLUTE COUNT (BEAKER) (test 0.66 K/ L 0.24-0.36 xxxu=586) EOSINOPHILS ABSOLUTE COUNT (BEAKER) (test 0.48 K/ L 0.04-0.36 nqlc=651) BASOPHILS ABSOLUTE COUNT (BEAKER) (test 0.03 K/ L 0.01-0.08 luve=377) IMMATURE GRANULOCYTES-RELATIVE PERCENT (BEAKER) 0 % 0-1 (test gfwv=2985) POCT-GLUCOSE [id number] 21:31:00 Test Item Value Reference Range Comments POC-GLUCOSE METER (BEAKER) 186 mg/dL 70-110 TESTED AT [address] (test ddnn=8842) [place] [id number] POCT-GLUCOSE [id number] 18:45:00 Test Item Value Reference Range Comments POC-GLUCOSE METER (BEAKER) 215 mg/dL 70-110 TESTED AT [address] (test xquc=2062) [place] [id number] POCT-GLUCOSE [id number] 12:34:00 Test Item Value Reference Range Comments POC-GLUCOSE METER (BEAKER) 428 mg/dL 70-110 Notified SAMAN HERNANDEZ/TESTED AT [facility] (test vscc=6630) [address] [place] [address] RAD, CHEST, 1 VIEW, NON [id number] 09:30:00Reason for exam:->Respiratory distress Should this be [...] Hercules Verified Date/Time: 07/12/2017 09:30:37 Reading Location: [facility] Radiology Reading Room POCT-GLUCOSE [id number] 07:54:00 Test Item Value Reference Range Comments POC-GLUCOSE METER (BEAKER) 332 mg/dL 70-110 TESTED AT [address] (test ikep=1823) [facility] [id number] VITAMIN [id number] 06:24:00 Test Item Value Reference Range Comments VITAMIN B12 (BEAKER) (test ctga=821) 318 pg/mL 213-816 BASIC METABOLIC [id number] 05:51:00 Test Item Value Reference Range Comments SODIUM (BEAKER) (test 141 meq/L 136-145 kgcp=136) POTASSIUM (BEAKER) (test 3.6 meq/L 3.5-5.1 anoc=583) CHLORIDE (BEAKER) (test 108 meq/L 98-107 odxz=215) CO2 (BEAKER) (test 25 meq/L 22-29 mbdd=284) BLOOD UREA NITROGEN 19 mg/dL 7-21 (BEAKER) (test vxcg=383) CREATININE (BEAKER) (test 0.82 mg/dL 0.57-1.25 wbvx=235) GLUCOSE RANDOM (BEAKER) 393 mg/dL 70-105 (test ykup=842) CALCIUM (BEAKER) (test 8.9 mg/dL 8.4-10.2 kkfs=087) EGFR (BEAKER) (test 70 mL/min/1.73 sq m ESTIMATED GFR IS NOT bted=7651) ACCURATE CREATININE CLEARANCE IN PREDICTING GLOMERULAR FILTRATION RATE. ESTIMATED GFR IS NOT APPLICABLE FOR DIALYSIS PATIENTS. CBC W/PLT COUNT & AUTO [id number] 05:26:00 Test Item Value Reference Range Comments WHITE BLOOD CELL COUNT (BEAKER) (test zliy=288) 8.0 K/ L 3.5-10.5 RED BLOOD CELL COUNT (BEAKER) (test pkqi=548) 3.44 M/ L 3.93-5.22 HEMOGLOBIN (BEAKER) (test bich=284) 10.7 GM/DL 11.2-15.7 HEMATOCRIT (BEAKER) (test wctq=693) 32.8 % 34.1-44.9 MEAN CORPUSCULAR VOLUME (BEAKER) (test ptdr=125) 95.3 fL 79.4-94.8 MEAN CORPUSCULAR HEMOGLOBIN (BEAKER) (test 31.1 pg 25.6-32.2 rugn=566) MEAN CORPUSCULAR HEMOGLOBIN CONC (BEAKER) (test 32.6 GM/DL 32.2-35.5 xxbb=832) RED CELL DISTRIBUTION WIDTH (BEAKER) (test 13.5 % 11.7-14.4 atpa=582) PLATELET COUNT (BEAKER) (test imqg=380) 200 K/CU MM 150-450 MEAN PLATELET VOLUME (BEAKER) (test ypnl=778) 13.0 fL 9.4-12.3 NUCLEATED RED BLOOD CELLS (BEAKER) (test 0 /100 WBC 0-0 asro=920) NEUTROPHILS RELATIVE PERCENT (BEAKER) (test 64 % rkoz=897) LYMPHOCYTES RELATIVE PERCENT (BEAKER) (test 22 % ldmu=830) MONOCYTES RELATIVE PERCENT (BEAKER) (test 7 % uwom=077) EOSINOPHILS RELATIVE PERCENT (BEAKER) (test 6 % fgzp=415) BASOPHILS RELATIVE PERCENT (BEAKER) (test 1 % roaw=791) NEUTROPHILS ABSOLUTE COUNT (BEAKER) (test 5.11 K/ L 1.56-6.13 stzs=242) LYMPHOCYTES ABSOLUTE COUNT (BEAKER) (test 1.73 K/ L 1.18-3.74 ygnf=872) MONOCYTES ABSOLUTE COUNT (BEAKER) (test 0.59 K/ L 0.24-0.36 bgyy=826) EOSINOPHILS ABSOLUTE COUNT (BEAKER) (test 0.47 K/ L 0.04-0.36 wseh=757) BASOPHILS ABSOLUTE COUNT (BEAKER) (test 0.05 K/ L 0.01-0.08 hnvr=710) IMMATURE GRANULOCYTES-RELATIVE PERCENT (BEAKER) 0 % 0-1 (test kkox=7157) POCT-GLUCOSE [id number] 22:48:00 Test Item Value Reference Range Comments POC-GLUCOSE METER (BEAKER) 376 mg/dL 70-110 Notified SAMAN HERNANDEZ/TESTED AT [facility] (test ayho=1913) [address] [place] [address] POCT-GLUCOSE [id number] 22:04:00 Test Item Value Reference Range Comments POC-GLUCOSE METER (BEAKER) 434 mg/dL 70-110 Notified SAMAN HERNANDEZ/TESTED AT [facility] (test irzs=7249) [address] [place] [address] POCT-GLUCOSE [id number] 18:16:00 Test Item Value Reference Range Comments POC-GLUCOSE METER (BEAKER) 340 mg/dL 70-110 Notified SAMAN HERNANDEZ/TESTED AT [facility] (test ssqu=0195) [address] [place] [address] POCT-GLUCOSE [id number] 12:40:00 Test Item Value Reference Range Comments POC-GLUCOSE METER (BEAKER) 339 mg/dL 70-110 Notified SAMAN HERNANDEZ/TESTED AT [facility] (test vfkx=0612) [address] [place] [address] POCT-GLUCOSE [id number] 08:40:00 Test Item Value Reference Range Comments POC-GLUCOSE METER (BEAKER) 290 mg/dL 70-110 TESTED AT [address] (test zmyg=9130) [facility] [address] RAD, CHEST, 1 VIEW, NON [id number] 08:02:00Reason for exam:-> intubatedShould this be performed [...] No pneumothorax is seen. Signed: Fay Hercules MDReport Verified Date/Time: 07/11/2017 08:02:13 Reading Location: [facility] Radiology Reading Room POCT-GLUCOSE [id number] 06:33:00 Test Item Value Reference Range Comments POC-GLUCOSE METER (BEAKER) 354 mg/dL 70-110 Notified SAMAN HERNANDEZ/TESTED AT [facility] (test zdon=3719) [address] [place] [address] BLOOD GAS, [id number] 05:30:00 Test Item Value Reference Range Comments PH ARTERIAL (BEAKER) (test mdom=771) 7.42 7.35-7.45 PCO2 ARTERIAL (BEAKER) (test qlav=495) 29 mmHg 35-45 PO2 ARTERIAL (BEAKER) (test ihkm=701) 96 mmHg 80-90 O2 SATURATION ARTERIAL (BEAKER) (test fcjo=252) 97.5 % 96.0-97.0 HCO3 ARTERIAL (BEAKER) (test ynpg=670) 18 mmol/L 21-29 BASE EXCESS ARTERIAL (BEAKER) (test stni=306) -5.1 mmol/L -2.0-3.0 PATIENT TEMPERATURE (BEAKER) (test mnfu=4457) 37.0 C FIO2 (BEAKER) (test btgc=5993) 21.0 % BASIC METABOLIC [id number] 03:15:00 Test Item Value Reference Range Comments SODIUM (BEAKER) (test 138 meq/L 136-145 wodj=095) POTASSIUM (BEAKER) (test 3.9 meq/L 3.5-5.1 trvf=249) CHLORIDE (BEAKER) (test 109 meq/L 98-107 xrle=187) CO2 (BEAKER) (test 18 meq/L 22-29 vsnd=939) BLOOD UREA NITROGEN 18 mg/dL 7-21 (BEAKER) (test tfua=818) CREATININE (BEAKER) (test 0.79 mg/dL 0.57-1.25 kxdh=614) GLUCOSE RANDOM (BEAKER) 349 mg/dL 70-105 (test jdtj=283) CALCIUM (BEAKER) (test 8.2 mg/dL 8.4-10.2 fshg=170) EGFR (BEAKER) (test 73 mL/min/1.73 sq m ESTIMATED GFR IS NOT oyvm=4642) ACCURATE CREATININE CLEARANCE IN PREDICTING GLOMERULAR FILTRATION RATE. ESTIMATED GFR IS NOT APPLICABLE FOR DIALYSIS PATIENTS. BLOOD GAS, [id number] 03:03:00 Test Item Value Reference Range Comments PH ARTERIAL (BEAKER) (test qeul=553) 7.46 7.35-7.45 PCO2 ARTERIAL (BEAKER) (test wwhi=537) 31 mmHg 35-45 PO2 ARTERIAL (BEAKER) (test uuqr=957) 62 mmHg 80-90 O2 SATURATION ARTERIAL (BEAKER) (test kmph=380) 93.1 % 96.0-97.0 HCO3 ARTERIAL (BEAKER) (test biar=135) 21 mmol/L 21-29 BASE EXCESS ARTERIAL (BEAKER) (test jhgl=565) -1.6 mmol/L -2.0-3.0 PATIENT TEMPERATURE (BEAKER) (test fwme=9212) 37.0 C FIO2 (BEAKER) (test zpdj=6218) 60.0 % CBC W/PLT COUNT & AUTO [id number] 03:03:00 Test Item Value Reference Range Comments WHITE BLOOD CELL COUNT (BEAKER) (test ikce=513) 11.5 K/ L 3.5-10.5 RED BLOOD CELL COUNT (BEAKER) (test xrub=395) 3.57 M/ L 3.93-5.22 HEMOGLOBIN (BEAKER) (test lhri=209) 11.0 GM/DL 11.2-15.7 HEMATOCRIT (BEAKER) (test mbql=115) 33.3 % 34.1-44.9 MEAN CORPUSCULAR VOLUME (BEAKER) (test gjwe=793) 93.3 fL 79.4-94.8 MEAN CORPUSCULAR HEMOGLOBIN (BEAKER) (test 30.8 pg 25.6-32.2 ccgs=417) MEAN CORPUSCULAR HEMOGLOBIN CONC (BEAKER) (test 33.0 GM/DL 32.2-35.5 aylc=596) RED CELL DISTRIBUTION WIDTH (BEAKER) (test 13.4 % 11.7-14.4 bjwb=704) PLATELET COUNT (BEAKER) (test mkkv=929) 181 K/CU MM 150-450 MEAN PLATELET VOLUME (BEAKER) (test nkyn=303) 13.1 fL 9.4-12.3 NUCLEATED RED BLOOD CELLS (BEAKER) (test 0 /100 WBC 0-0 tumo=590) NEUTROPHILS RELATIVE PERCENT (BEAKER) (test 87 % pqad=697) LYMPHOCYTES RELATIVE PERCENT (BEAKER) (test 6 % vruo=409) MONOCYTES RELATIVE PERCENT (BEAKER) (test 5 % bqok=253) EOSINOPHILS RELATIVE PERCENT (BEAKER) (test 1 % vsjv=734) BASOPHILS RELATIVE PERCENT (BEAKER) (test 1 % jybe=146) NEUTROPHILS ABSOLUTE COUNT (BEAKER) (test 9.98 K/ L 1.56-6.13 wdav=831) LYMPHOCYTES ABSOLUTE COUNT (BEAKER) (test 0.67 K/ L 1.18-3.74 dudq=021) MONOCYTES ABSOLUTE COUNT (BEAKER) (test 0.56 K/ L 0.24-0.36 zwun=596) EOSINOPHILS ABSOLUTE COUNT (BEAKER) (test 0.12 K/ L 0.04-0.36 mgbi=011) BASOPHILS ABSOLUTE COUNT (BEAKER) (test 0.07 K/ L 0.01-0.08 zmwi=149) IMMATURE GRANULOCYTES-RELATIVE PERCENT (BEAKER) 1 % 0-1 (test azky=6784) POCT-GLUCOSE [id number] 00:49:00 Test Item Value Reference Range Comments POC-GLUCOSE METER (BEAKER) 301 mg/dL 70-110 Notified SAMAN HERNANDEZ/TESTED AT [facility] (test rygk=2319) [address] [place] [id number] TROPONIN [id number] 00:36:00 Test Item Value Reference Range Comments TROPONIN I (BEAKER) (test ahqh=780) 0.17 ng/mL 0.00-0.03 Troponin I (TnI) levels [...] and persistent tachyarrhythmia.CREATINE KINASE (CK), TOTAL AND [id number] 00:33:00 Test Item Value Reference Range Comments CREATINE KINASE TOTAL (BEAKER) (test plwa=154) 168 U/L 29-200 CREATINE KINASE-MB (BEAKER) (test cntr=307) 1.2 ng/mL 0.0-6.6 CREATINE KINASE-MB INDEX (BEAKER) (test dsgu=372) 0.7 % CK-MB Reference Range:<6.7 Normal6.7-10.0 Borderline>10.0 AbnormalPOCT-GLUCOSE [id number] 18:13:00 Test Item Value Reference Range Comments POC-GLUCOSE METER (BEAKER) 302 mg/dL 70-110 TESTED AT [address] (test bwph=0374) [facility] [address] TROPONIN [id number] 17:15:00 Test Item Value Reference Range Comments TROPONIN I (BEAKER) (test epor=907) 0.32 ng/mL 0.00-0.03 Troponin I (TnI) levels [...] and persistent tachyarrhythmia.CREATINE KINASE (CK), TOTAL AND [id number] 17:05:00 Test Item Value Reference Range Comments CREATINE KINASE TOTAL (BEAKER) (test udhw=339) 213 U/L 29-200 CREATINE KINASE-MB (BEAKER) (test ngti=380) 2.1 ng/mL 0.0-6.6 CREATINE KINASE-MB INDEX (BEAKER) (test hznt=798) 1.0 % CK-MB Reference Range:<6.7 Normal6.7-10.0 Borderline>10.0 AbnormalPOCT-GLUCOSE [id number] 12:22:00 Test Item Value Reference Range Comments POC-GLUCOSE METER (BEAKER) 240 mg/dL 70-110 TESTED AT [address] (test qnqg=3744) [place] [address] B-TYPE NATRIURETIC FACTOR (BNP)[id number] 12:01:00 Test Item Value Reference Range Comments B-TYPE NATRIURETIC PEPTIDE (BEAKER) (test 524 pg/mL 0-100 nnls=825) POCT-GLUCOSE [id number] 06:33:00 Test Item Value Reference Range Comments POC-GLUCOSE METER (BEAKER) 227 mg/dL 70-110 TESTED AT [address] (test krqr=0552) [place] [address] COMPREHENSIVE METABOLIC [id number] 06:19:00 Test Item Value Reference Range Comments TOTAL PROTEIN (BEAKER) 6.7 gm/dL 6.0-8.3 (test fbgh=173) ALBUMIN (BEAKER) (test 3.2 g/dL 3.5-5.0 vmjq=3652) ALKALINE PHOSPHATASE 77 U/L 40-150 (BEAKER) (test mtto=677) BILIRUBIN TOTAL (BEAKER) 0.9 mg/dL 0.2-1.2 (test yfuj=115) SODIUM (BEAKER) (test 139 meq/L 136-145 luaw=177) POTASSIUM (BEAKER) (test 3.7 meq/L 3.5-5.1 xezi=219) CHLORIDE (BEAKER) (test 109 meq/L 98-107 kvbh=456) CO2 (BEAKER) (test 18 meq/L 22-29 ousf=448) BLOOD UREA NITROGEN 13 mg/dL 7-21 (BEAKER) (test znrb=108) CREATININE (BEAKER) (test 0.69 mg/dL 0.57-1.25 wkob=312) GLUCOSE RANDOM (BEAKER) 250 mg/dL 70-105 (test fgaw=834) CALCIUM (BEAKER) (test 8.0 mg/dL 8.4-10.2 idiv=746) AST (SGOT) (BEAKER) (test 18 U/L 5-34 zhmk=483) ALT (SGPT) (BEAKER) (test 13 U/L 6-55 rmsb=024) EGFR (BEAKER) (test 85 mL/min/1.73 sq m ESTIMATED GFR IS NOT aeth=6037) ACCURATE CREATININE CLEARANCE IN PREDICTING GLOMERULAR FILTRATION RATE. ESTIMATED GFR IS NOT APPLICABLE FOR DIALYSIS PATIENTS. BASIC METABOLIC [id number] 06:19:00 Test Item Value Reference Range Comments SODIUM (BEAKER) (test 139 meq/L 136-145 jxmm=954) POTASSIUM (BEAKER) (test 3.7 meq/L 3.5-5.1 whqv=369) CHLORIDE (BEAKER) (test 109 meq/L 98-107 vmcm=501) CO2 (BEAKER) (test 18 meq/L 22-29 mgli=796) BLOOD UREA NITROGEN 13 mg/dL 7-21 (BEAKER) (test zfyc=567) CREATININE (BEAKER) (test 0.69 mg/dL 0.57-1.25 zvkc=372) GLUCOSE RANDOM (BEAKER) 250 mg/dL 70-105 (test dpea=578) CALCIUM (BEAKER) (test 8.0 mg/dL 8.4-10.2 nzjp=005) EGFR (BEAKER) (test 85 mL/min/1.73 sq m ESTIMATED GFR IS NOT yilh=9728) ACCURATE CREATININE CLEARANCE IN PREDICTING GLOMERULAR FILTRATION RATE. ESTIMATED GFR IS NOT APPLICABLE FOR DIALYSIS PATIENTS. BLOOD GAS, [id number] 06:13:00 Test Item Value Reference Range Comments PH ARTERIAL (BEAKER) (test gboc=903) 7.42 7.35-7.45 PCO2 ARTERIAL (BEAKER) (test jvza=292) 34 mmHg 35-45 PO2 ARTERIAL (BEAKER) (test kvep=170) 106 mmHg 80-90 O2 SATURATION ARTERIAL (BEAKER) (test guzi=622) 98.0 % 96.0-97.0 HCO3 ARTERIAL (BEAKER) (test cyzq=493) 22 mmol/L 21-29 BASE EXCESS ARTERIAL (BEAKER) (test owlt=787) -2.3 mmol/L -2.0-3.0 PATIENT TEMPERATURE (BEAKER) (test dovf=7944) 37.0 C FIO2 (BEAKER) (test cqvy=7602) 50.0 % CBC W/PLT COUNT & AUTO [id number] 05:53:00 Test Item Value Reference Range Comments WHITE BLOOD CELL COUNT (BEAKER) (test hiyz=363) 12.9 K/ L 3.5-10.5 RED BLOOD CELL COUNT (BEAKER) (test rwqo=137) 3.78 M/ L 3.93-5.22 HEMOGLOBIN (BEAKER) (test kbhc=049) 11.9 GM/DL 11.2-15.7 HEMATOCRIT (BEAKER) (test xqsn=975) 35.5 % 34.1-44.9 MEAN CORPUSCULAR VOLUME (BEAKER) (test toof=156) 93.9 fL 79.4-94.8 MEAN CORPUSCULAR HEMOGLOBIN (BEAKER) (test 31.5 pg 25.6-32.2 mtoq=660) MEAN CORPUSCULAR HEMOGLOBIN CONC (BEAKER) (test 33.5 GM/DL 32.2-35.5 otlq=485) RED CELL DISTRIBUTION WIDTH (BEAKER) (test 13.5 % 11.7-14.4 ymcf=117) PLATELET COUNT (BEAKER) (test wrtd=886) 198 K/CU MM 150-450 MEAN PLATELET VOLUME (BEAKER) (test aart=516) 12.7 fL 9.4-12.3 NUCLEATED RED BLOOD CELLS (BEAKER) (test 0 /100 WBC 0-0 hojk=223) NEUTROPHILS RELATIVE PERCENT (BEAKER) (test 77 % yyax=262) LYMPHOCYTES RELATIVE PERCENT (BEAKER) (test 14 % tprw=208) MONOCYTES RELATIVE PERCENT (BEAKER) (test 7 % ohpw=181) EOSINOPHILS RELATIVE PERCENT (BEAKER) (test 2 % punj=738) BASOPHILS RELATIVE PERCENT (BEAKER) (test 0 % hvna=594) NEUTROPHILS ABSOLUTE COUNT (BEAKER) (test 9.92 K/ L 1.56-6.13 reky=898) LYMPHOCYTES ABSOLUTE COUNT (BEAKER) (test 1.74 K/ L 1.18-3.74 rmkx=929) MONOCYTES ABSOLUTE COUNT (BEAKER) (test 0.85 K/ L 0.24-0.36 hrbg=811) EOSINOPHILS ABSOLUTE COUNT (BEAKER) (test 0.22 K/ L 0.04-0.36 zhad=876) BASOPHILS ABSOLUTE COUNT (BEAKER) (test 0.05 K/ L 0.01-0.08 bcpl=402) IMMATURE GRANULOCYTES-RELATIVE PERCENT (BEAKER) 1 % 0-1 (test vqox=1924) LACTIC ACID, ARTERIAL, WHOLE [id number] 05:17:00 Test Item Value Reference Range Comments LACTATE BLOOD ARTERIAL (2) (BEAKER) (test 0.8 mmol/L 0.5-2.2 sjmr=4778) Effective 09/02/2015: Units/Reference Range ChangeNew: 0.5-2.2 mmol/L Previous: 5 -20 mg/dLRAD, CHEST, 1 VIEW, NON [id number] 03:58:00Reason for exam:-> concern for aspirationShould this be performed at the bedside?->YesFINAL REPORT RAD, CHEST, 1 VIEW, NON DEPT INDICATION: concern for aspiration COMPARISON: Prior day's exam TECHNIQUE: Portable frontal view of the chest. IMPRESSION: Interval extubation.Stable cardiomegaly.Worsening pulmonary interstitial edema.No pneumothorax.No acute osseous abnormality. Signed: Jb Veronica MDReport Verified Date/Time: 07/10/2017 03:58:42 Reading Location: [facility] C013X Ortho Consult Reading Room CT, BRAIN, WITHOUT [id number] 03:09:00Reason for exam:->Stroke evaluationFINAL REPORT CT, BRAIN, [...] MDReport Verified Date/Time: 07/10/2017 03:09:32 Reading Location: [facility] B1 C013X Ortho Consult Reading Room POCT- GLUCOSE [id number] 00:20:00 Test Item Value Reference Range Comments POC-GLUCOSE METER (BEAKER) 200 mg/dL 70-110 TESTED AT [address] (test isjt=5442) [facility] [address] POCT-GLUCOSE [id number] 20:32:00 Test Item Value Reference Range Comments POC-GLUCOSE METER (BEAKER) 237 mg/dL 70-110 TESTED AT [address] (test avas=8416) [facility] [address] URINALYSIS W/ [id number] 20:08:00 Test Item Value Reference Range Comments COLOR (BEAKER) (test lupr=526) Light Yellow CLARITY (BEAKER) (test vemw=617) Clear SPECIFIC GRAVITY UA (BEAKER) (test homc=785) 1.009 1.001-1.035 PH UA (BEAKER) (test dphg=792) 5.5 5.0-8.0 PROTEIN UA (BEAKER) (test mgce=248) 70 mg/dL Negative GLUCOSE UA (BEAKER) (test dxhc=328) 50 mg/dL Negative KETONES UA (BEAKER) (test ukew=657) Negative Negative BILIRUBIN UA (BEAKER) (test oxfw=375) Negative Negative BLOOD UA (BEAKER) (test eabo=300) Negative Negative NITRITE UA (BEAKER) (test sbve=664) Negative Negative LEUKOCYTE ESTERASE UA (BEAKER) (test deul=872) Trace Negative UROBILINOGEN UA (BEAKER) (test qukz=016) 0.2 mg/dL 0.2-1.0 RBC UA (BEAKER) (test tyzt=385) < /HPF WBC UA (BEAKER) (test lvid=723) 25 /HPF BACTERIA (BEAKER) (test xane=787) Rare MUCUS (BEAKER) (test lfga=5353) Rare SQUAMOUS EPITHELIAL (BEAKER) (test ujjb=344) 1 /HPF SOURCE(BEAKER) (test tfpa=9950) POCT-GLUCOSE [id number] 18:44:00 Test Item Value Reference Range Comments POC-GLUCOSE METER (BEAKER) 174 mg/dL 70-110 TESTED AT [address] (test russ=9526) [place] [address] HEMOGLOBIN [id number] 14:47:00 Test Item Value Reference Range Comments HEMOGLOBIN A1C (BEAKER) (test fzqz=174) 12.4 % 4.3-6.1 POCT-GLUCOSE [id number] 11:44:00 Test Item Value Reference Range Comments POC-GLUCOSE METER (BEAKER) 149 mg/dL 70-110 TESTED AT [address] (test bxyp=5210) [place] [address] RAD, CHEST, 1 VIEW, NON [id number] 07:42:00Reason for exam:-> intubatedShould this be performed [...] Verified Date/ Time: 07/09/2017 07:42:12 Reading Location: [facility] C013Y CT Body Reading Room CT BRAIN WITHOUT IV CONTRAST - [id number] 07:37:00Reason for exam:->L. MCA strokeFINAL REPORT CT [...] posterior distribution infarction without hemorrhage. Signed: Rossi Fryeport Verified Date/Time: 07/09/2017 07:37:39 Reading Location: [address] Neuro Reading Room TSH/FREE T4 IF [id number] 05:41:00 Test Item Value Reference Range Comments THYROID STIMULATING HORMONE (BEAKER) (test 0.60 uIU/mL 0.35-4.94 tdgc=577) BASIC METABOLIC [id number] 04:33:00 Test Item Value Reference Range Comments SODIUM (BEAKER) (test 138 meq/L 136-145 dlym=853) POTASSIUM (BEAKER) (test 3.4 meq/L 3.5-5.1 ayex=180) CHLORIDE (BEAKER) (test 107 meq/L 98-107 qynt=420) CO2 (BEAKER) (test 20 meq/L 22-29 jcdr=023) BLOOD UREA NITROGEN 17 mg/dL 7-21 (BEAKER) (test ejlx=684) CREATININE (BEAKER) (test 0.68 mg/dL 0.57-1.25 xrci=197) GLUCOSE RANDOM (BEAKER) 118 mg/dL 70-105 (test dofr=064) CALCIUM (BEAKER) (test 7.9 mg/dL 8.4-10.2 usut=545) EGFR (BEAKER) (test mL/min/1.73 sq m INSUFFICIENT CLINICAL DATA tcuu=9660) TO CALCULATE ESTIMATED GFR. LIPID [id number] 04:30:00 Test Item Value Reference Range Comments TRIGLYCERIDES (BEAKER) (test dxjp=875) 300 mg/dL CHOLESTEROL (BEAKER) (test rbcg=136) 204 mg/dL HDL CHOLESTEROL (BEAKER) (test ptsi=801) 33 mg/dL LDL CHOLESTEROL CALCULATED (BEAKER) (test 111 mg/dL agcr=899) Triglyceride Reference Range: Low Risk <150 Borderline 150- 199 High Risk 200-499 Very High Risk >=500Cholesterol Reference Range: Low Risk <200 Borderline 200-239 High Risk > 240HDL Cholesterol Reference Range: Low Risk >=60 High Risk <40LDL Cholesterol Reference Range: Optimal <100 Near Optimal 100-129 Borderline 130-159 High 160-189 Very High >=190BLOOD GAS, [id number] 04:11:00 Test Item Value Reference Range Comments PH ARTERIAL (BEAKER) (test qygc=068) 7.42 7.35-7.45 PCO2 ARTERIAL (BEAKER) (test ikmq=712) 37 mmHg 35-45 PO2 ARTERIAL (BEAKER) (test kwnl=359) 90 mmHg 80-90 O2 SATURATION ARTERIAL (BEAKER) (test gfpr=349) 97.1 % 96.0-97.0 HCO3 ARTERIAL (BEAKER) (test pzkv=503) 24 mmol/L 21-29 BASE EXCESS ARTERIAL (BEAKER) (test ylnx=439) -0.6 mmol/L -2.0-3.0 PATIENT TEMPERATURE (BEAKER) (test hhxb=1974) 37.0 C FIO2 (BEAKER) (test ckmj=9780) 40.0 % CBC W/PLT COUNT & AUTO [id number] 04:10:00 Test Item Value Reference Range Comments WHITE BLOOD CELL COUNT (BEAKER) (test ztki=839) 12.9 K/ L 3.5-10.5 RED BLOOD CELL COUNT (BEAKER) (test gctp=775) 3.88 M/ L 3.93-5.22 HEMOGLOBIN (BEAKER) (test uxwr=240) 12.0 GM/DL 11.2-15.7 HEMATOCRIT (BEAKER) (test zfst=450) 35.8 % 34.1-44.9 MEAN CORPUSCULAR VOLUME (BEAKER) (test dcjz=961) 92.3 fL 79.4-94.8 MEAN CORPUSCULAR HEMOGLOBIN (BEAKER) (test 30.9 pg 25.6-32.2 zgmf=045) MEAN CORPUSCULAR HEMOGLOBIN CONC (BEAKER) (test 33.5 GM/DL 32.2-35.5 jznh=052) RED CELL DISTRIBUTION WIDTH (BEAKER) (test 13.4 % 11.7-14.4 kuup=023) PLATELET COUNT (BEAKER) (test lloi=877) 203 K/CU MM 150-450 MEAN PLATELET VOLUME (BEAKER) (test ldgr=604) 12.7 fL 9.4-12.3 NUCLEATED RED BLOOD CELLS (BEAKER) (test 0 /100 WBC 0-0 phlf=770) NEUTROPHILS RELATIVE PERCENT (BEAKER) (test 75 % qrvq=793) LYMPHOCYTES RELATIVE PERCENT (BEAKER) (test 18 % hlwn=502) MONOCYTES RELATIVE PERCENT (BEAKER) (test 6 % tmrr=167) EOSINOPHILS RELATIVE PERCENT (BEAKER) (test 1 % kfvf=313) BASOPHILS RELATIVE PERCENT (BEAKER) (test 0 % ycnn=141) NEUTROPHILS ABSOLUTE COUNT (BEAKER) (test 9.66 K/ L 1.56-6.13 pxic=711) LYMPHOCYTES ABSOLUTE COUNT (BEAKER) (test 2.30 K/ L 1.18-3.74 myaf=014) MONOCYTES ABSOLUTE COUNT (BEAKER) (test 0.76 K/ L 0.24-0.36 ntxm=841) EOSINOPHILS ABSOLUTE COUNT (BEAKER) (test 0.10 K/ L 0.04-0.36 tnns=210) BASOPHILS ABSOLUTE COUNT (BEAKER) (test 0.04 K/ L 0.01-0.08 ccqq=817) IMMATURE GRANULOCYTES-RELATIVE PERCENT (BEAKER) 0 % 0-1 (test oxfp=7646) BASIC METABOLIC [id number] 23:50:00 Test Item Value Reference Range Comments SODIUM (BEAKER) (test 139 meq/L 136-145 sqtq=190) POTASSIUM (BEAKER) (test 3.5 meq/L 3.5-5.1 xdnt=761) CHLORIDE (BEAKER) (test 106 meq/L 98-107 mwuu=203) CO2 (BEAKER) (test 22 meq/L 22-29 exbl=845) BLOOD UREA NITROGEN 19 mg/dL 7-21 (BEAKER) (test nqer=597) CREATININE (BEAKER) (test 0.68 mg/dL 0.57-1.25 avnr=064) GLUCOSE RANDOM (BEAKER) 114 mg/dL 70-105 (test efci=750) CALCIUM (BEAKER) (test 8.2 mg/dL 8.4-10.2 qocw=325) EGFR (BEAKER) (test mL/min/1.73 sq m INSUFFICIENT CLINICAL DATA imps=0960) TO CALCULATE ESTIMATED GFR. HEPATIC FUNCTION [id number] 23:26:00 Test Item Value Reference Range Comments TOTAL PROTEIN (BEAKER) (test ucin=466) 6.7 gm/dL 6.0-8.3 ALBUMIN (BEAKER) (test owto=9375) 3.3 g/dL 3.5-5.0 BILIRUBIN TOTAL (BEAKER) (test fteq=997) 0.4 mg/dL 0.2-1.2 BILIRUBIN DIRECT (BEAKER) (test cfbh=163) 0.2 mg/dL 0.1-0.5 ALKALINE PHOSPHATASE (BEAKER) (test gstd=231) 76 U/L 40-150 AST (SGOT) (BEAKER) (test buel=276) 22 U/L 5-34 ALT (SGPT) (BEAKER) (test kmsb=627) 16 U/L 6-55 CBC W/PLT COUNT & AUTO [id number] 23:25:00 Test Item Value Reference Range Comments WHITE BLOOD CELL COUNT (BEAKER) (test hurl=636) 14.1 K/ L 3.5-10.5 RED BLOOD CELL COUNT (BEAKER) (test fafy=412) 4.01 M/ L 3.93-5.22 HEMOGLOBIN (BEAKER) (test viim=699) 12.6 GM/DL 11.2-15.7 HEMATOCRIT (BEAKER) (test jpgk=523) 36.7 % 34.1-44.9 MEAN CORPUSCULAR VOLUME (BEAKER) (test wkid=399) 91.5 fL 79.4-94.8 MEAN CORPUSCULAR HEMOGLOBIN (BEAKER) (test 31.4 pg 25.6-32.2 pgee=355) MEAN CORPUSCULAR HEMOGLOBIN CONC (BEAKER) (test 34.3 GM/DL 32.2-35.5 ienz=761) RED CELL DISTRIBUTION WIDTH (BEAKER) (test 13.2 % 11.7-14.4 mpvh=474) PLATELET COUNT (BEAKER) (test ddam=197) 212 K/CU MM 150-450 MEAN PLATELET VOLUME (BEAKER) (test kjmh=749) 12.6 fL 9.4-12.3 NUCLEATED RED BLOOD CELLS (BEAKER) (test 0 /100 WBC 0-0 ntpy=288) NEUTROPHILS RELATIVE PERCENT (BEAKER) (test 78 % kyxo=649) LYMPHOCYTES RELATIVE PERCENT (BEAKER) (test 15 % ehco=091) MONOCYTES RELATIVE PERCENT (BEAKER) (test 7 % dskj=852) EOSINOPHILS RELATIVE PERCENT (BEAKER) (test 1 % yzwp=028) BASOPHILS RELATIVE PERCENT (BEAKER) (test 0 % dhns=505) NEUTROPHILS ABSOLUTE COUNT (BEAKER) (test 10.90 K/ L 1.56-6.13 nuuv=055) LYMPHOCYTES ABSOLUTE COUNT (BEAKER) (test 2.10 K/ L 1.18-3.74 vdia=878) MONOCYTES ABSOLUTE COUNT (BEAKER) (test 0.92 K/ L 0.24-0.36 khld=311) EOSINOPHILS ABSOLUTE COUNT (BEAKER) (test 0.09 K/ L 0.04-0.36 zsrn=694) BASOPHILS ABSOLUTE COUNT (BEAKER) (test 0.03 K/ L 0.01-0.08 yvxy=428) IMMATURE GRANULOCYTES-RELATIVE PERCENT (BEAKER) 0 % 0-1 (test xlry=2735) PROTHROMBIN [id number] 23:12:00 Test Item Value Reference Range Comments PROTIME (BEAKER) (test trfg=387) 14.2 seconds 11.7-14.7 INR (BEAKER) (test ailw=367) 1.1 <=5.9 RECOMMENDED COUMADIN/WARFARIN INR THERAPY RANGESSTANDARD DOSE: 2.0 - 3.0 Includes: PROPHYLAXIS forvenous thrombosis, systemic embolization; TREATMENT for venous thrombosis and/or pulmonary embolus.HIGH RISK: Target INR is 2.5-3.5 for patients with mechanical heart valves.POCT-GLUCOSE [id number] 21:38:00 Test Item Value Reference Range Comments POC-GLUCOSE METER (BEAKER) 94 mg/dL 70-110 TESTED AT [address] (test qjon=[id number]) [facility] [address] KAREN, COMMON CAROTID OR INNOMINATE W EXTRACRANIAL [...] common femoral artery x1 MATERIALS EMPLOYED:1. 8 [place] short sheath 2. 5 [place] 125cm diagnostic catheter3. Bentson guidewire4. Terumo 0.035 LT glidewire5. Flowgate 8f Balloon Guide Catheter8. 8 [place] Angioseal device INDICATIONS:The patient is a 67-year- old female with history of hypertension, diabetes and prior stroke who presented with acute onset aphasia in her hometown of [place] around 11:00 AM. She was evaluated and transferred to [facility] for further evaluation treatment. On arrival, [...] the puncture site was confirmed, a 8 [place] short sheath was inserted over a Bentson wire and was maintained on heparinized saline flush throughout the remainder of the procedure. Using coaxial technique, a preflushed 5 [place] 125cm diagnostic glide catheter on constant heparinized saline flush was placed through a pre- flushed and pre-prepped 8 [place] Flowgate balloon Guide catheter. The two catheters [...] seen. [facility] The [facility] sheath was removed and hemostasis achieved with an 8 [place] Angioseal and manual compression. The patient tolerated [...] Verified Date/Time: 07/08/2017 18: 24:25 Reading Location: [place] [address], CTANGIO [id number] 15:00:00FINAL REPORT CLINICAL HISTORY: Stroke TECHNIQUE: Contiguous [...] FINDINGS: There is no evidence for a aug[place] of [place] first order branch vessel occlusion. [...] MDReport Verified Date/Time: 2017 15:00:43 Reading Location: [address] Neuro Reading Room CT, CAROTID , [id number] 15:00:00FINAL REPORT CLINICAL HISTORY: Stroke TECHNIQUE: Contiguous [...] FINDINGS: There is no evidence for a august[place] of [place] first order branch vessel occlusion. [...] MDReport Verified Date/Time: 2017 15:00:43 Reading Location: [address] Neuro Reading Room CT, CEREBRAL PERFUSION [id number] 15:00:00FINAL REPORT CLINICAL HISTORY: Stroke TECHNIQUE: Contiguous [...] FINDINGS: There is no evidence for a augustine of [place] first order branch vessel occlusion. [...] Verified Date/ Time: 07/08/2017 15:00:43 Reading Location: [address] Neuro Reading Room CT, BRAIN/STROKE [id number] 14:24:00FINAL REPORT CT Head without contrast CLINICAL [...] Fry Verified Date/Time: 07/08/2017 14:24:44 Reading Location: [address] Neuro Reading Room
[2019-03-11] MEDS: CALCIUM CARBONATE CHEW 500MG TAB PO SCH ×3 (08:00→16:36)
[2019-03-11] MEDS: HYDRALAZINE HCL 25 MG TABLET PO SCH ×3 (08:55→20:35)
[2019-03-11] MEDS: SENOSIDES 8.6 MG TAB PO SCH (08:55)
[2019-03-11] MEDS: ASCORBIC ACID 500 MG TABLET PO SCH ×2 (08:55→20:35)
[2019-03-11] MEDS: FERROUS SULFATE 325 MG TAB PO SCH ×2 (08:55→20:35)
[2019-03-11] MEDS: DULOXETINE 30 MG CAP PO SCH (08:55)
[2019-03-11] MEDS: CLOPIDOGREL 75 MG TABLET PO SCH (08:55)
[2019-03-11] MEDS: carvediloL 12.5 MG TAB PO SCH ×2 (08:55→20:36)
[2019-03-11] MEDS: DIVALPROEX DR 500MG TAB PO SCH ×2 (08:55→20:33)
[2019-03-11] MEDS: ZINC SULFATE 220 MG CAP PO SCH (08:55)
[2019-03-11] MEDS: POLYETHYL GLY 3350 17 GM/DOSE PO SCH (08:55)
[2019-03-11] MEDS: ASPIRIN 81 MG CHEWABLE TABLET PO SCH (08:55)
[2019-03-11] MEDS: COLLAGENASE 30 GM OINTMENT TOP SCH (09:00)
[2019-03-11] MEDS ORDERED: NA CHLORIDE 0.9% 500 ML ONE (11:34)
[2019-03-11] MEDS: BUPIVACA 0.5%/EPI 0.0005%/PF 30 ML VIAL ONE ×2 (12:01→13:05)
[2019-03-11] MEDS ORDERED: COLLAGENASE 30 GM OINTMENT TOP ONE (12:02)
[2019-03-11] MEDS ORDERED: MIDAZOLAM HCL 2 MG/2 ML INJ ONE (12:11)
[2019-03-11] MEDS ORDERED: LIDOCAINE 2% MPF 5 ML VIAL ONE (12:11)
[2019-03-11] MEDS ORDERED: PROPOFOL 200 MG/20 ML VIAL IV ONE (12:11)
[2019-03-11] MEDS ORDERED: FENTANYL CITR 100 MCG/2 ML ONE (12:11)
[2019-03-11] MEDS ORDERED: GLYCOPYRROLATE 0.2 MG/ML SYR ONE (13:00)
--- NOTE | 2019-03-11 13:45 | P.OP ---
Preoperative diagnosis: Pressure Wounds of Sacrum and RIGHT heel, Septic Joint of LEFT ankle Postoperative diagnosis: Pressure Wounds of Sacrum and RIGHT heel, Septic Joint of LEFT ankle Primary procedure: Debridement of Pressure Wounds of Sacrum and RIGHT heel Secondary procedure: Septic Joint of LEFT ankle Anesthesia: GETA Estimated blood loss: <10cc Specimen: Cultures Findings: Septic joint of LEFT ankle, Stage IV sacral ulcer, Complications: None Transferred to: Recovery Room Condition: Good
[2019-03-11] MEDS: HYDROMORPHONE HCL 1 MG/ML INJ ONE ×2 (14:45→15:41)
[2019-03-11] MEDS ORDERED: NA CHLORIDE 0.9% 1,000 ML IV PRN (18:12)
--- NOTE | 2019-03-11 18:19 | P.PN ---
Subjective Date of Service: 03/11/19 Primary Care Provider: unknown Chief Complaint: Fever, altered mentation, end-stage renal disease Subjective: Other (Patient appears improved. Patient alert and cooperative.) Physical Examination - Vital Signs Temperature: 97.6 F Blood Pressure: 161/72 Pulse: 67 Respirations: 18 Pulse Ox (%): 95 - Physical Exam General: Alert, Cooperative HEENT: Atraumatic Neck: Supple Respiratory: Clear to auscultation bilaterally, Normal air movement Cardiovascular: Normal pulses, Regular rate/rhythm Gastrointestinal: Normal bowel sounds, Soft and benign, Non-distended, No masses , No rebound, No guarding Neurological: Normal speech, Normal affect - Studies Microbiology Data (last 24 hrs): 03/09/19 17:01 Catheterized Urine [place] Count - Final 03/09/19 17:01 Catheterized Urine - Final No growth. 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 Patient more alert today. Surgery plans for debridement. Await findings. Await cultures is well. Continue to monitor closely. Case discussed with nephrology. Patient will have dialysis today. 1 wound culture shows methicillin-resistant Staph aureus. Will consult infectious disease for further recommendation as well. I will turn the service over to Dr. Shannon tomorrow. I will go over the plan of care with her. Anticipate discharge greater than 2 days likely 3-5 days pending clinical improvement. ESRD on hemodialysis with Hyponatremia, Hypokalemia: Continue with dialysis. Nephrology consulted. Electrolyte protocol in place. 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 Insulin sliding scale in place. HTN: Continue medication. Will monitor and adjust appropriately. Hx of CVA: Continue medication. Seizure disorder: Continue medication. Anemia of chronic disease: Continue medication. Will monitor hemoglobin closely. Time Spent Managing Pts Care (In Minutes): 55
[2019-03-11] MEDS ORDERED: ALBUMIN HUMAN 25% 50 ML IV SCH (19:00)
[2019-03-11] MEDS: TERAZOSIN HCL 1 MG CAP PO SCH (20:32)
[2019-03-11] MEDS: ATORVASTATIN 20 MG TAB PO SCH (20:35)
[2019-03-11] MEDS: TRAZODONE 50 MG TABLET PO SCH (20:36)
[2019-03-11] MEDS: JUVEN PACKET PO SCH (20:49)
[2019-03-11] MEDS: INSULIN GLARGINE 100 UNITS/ML SQ SCH (20:49)
[2019-03-11] MEDS ORDERED: INSULIN 70/30 100 UNITS/ML SQ ONE (20:54)
[2019-03-11] MEDS ORDERED: EPOETIN ALFA-EPBX 10,000 UNIT/ML VIAL ONE (22:13)
[2019-03-11] MEDS: EPOETIN 4,000 UNIT/ML VIAL IV SCH (22:20)
--- NOTE | 2019-03-12 00:31 | OP ---
Date of Procedure: 03/11/2019 Surgeon: Graham Manning MD, Preoperative Diagnoses: Pressure wounds of sacrum and right heel, septic joint of left ankle. Postoperative Diagnoses: Pressure wounds of sacrum and right heel, septic joint of left ankle. Procedure Performed: 1.Pressure wounds of sacrum and right heel. 2.Septic joint of left ankle washout. Anesthesia: General endotracheal. Estimated Blood Loss: Less than 10 mL. Specimen: Cultures. Findings: Septic joint of the left ankle and stage IV sacral decubitus ulcer. Complication: None. Disposition: Transferred to the recovery room in good condition. Procedure In Detail: After informed consent was obtained, the patient was brought to the operating r oom, prepped and draped in the usual sterile fashion. After adequate anesthesia was achieved, I star graham my dissection in the area of the left ankle. I circumferentially removed all necrotic tissues us ing a scalpel getting down through the subcutaneous tissues. There was exposed lateral calcaneal bon e as well as in the joint space between the calcaneus and the talus as well as what appeared to be th e cuboid area, dissecting down through the subcutaneous tissues and the exposed bone was left intact, pus was emanating from the space between the joints. This is highly concerning for septic joint. I evacuated all of this using suction after culturing the area and this pus emanated from necrotic tis derick extending between the joint space, therefore septic joint was confirmed at this time. I irrigate d the area copiously multiple times until clear and packed the joint space with plain packing. After all necrotic tissue was debrided. I then placed a sterile dressing on top and covered this with dam p-to-dry dressings at this time. Postoperatively, I reached out to our orthopedic surgeon on-call to address the septic joint in consultation. I then turned my attention to the right heel, there was a dry eschar with some heaped-up tissue around it. I removed the eschar using sharp dissection and ex posed the heel area down to the fascia. There was necrotic tissue here also. This was all debrided. There was some moisture to the area consistent with infection and all the infection was removed and the area was copiously irrigated multiple times and Santyl and damp-to-dry dressings were placed on this area. I then turned my attention to the sacrum. The sacrum had a necrotic soft tissue, which h ad a mckeon color to it. I dissected this using a scalpel blade down through subcutaneous tissues and dissected down to get good a viable tissue. Necrotic tissue was evident at this point, and it appear s to be a stage IV sacral decubitus ulcer when I removed all of the necrotic tissue for approximately 3 cm x 6 cm longitudinally down by all the way extending to the sacrum. All necrotic tissues were d ebrided. The area was easily irrigated and hemostasis was easily achieved with electrocautery. The wound was then packed also with Santyl. There was no exposed bone at this area, but the fascia over the bone was exposed. There was some Santyl placed in this area as well as damp-to-dry dressings and a sterile dressing was placed over the top. Patient tolerated the procedure well without evidence o f complication and transferred to PACU in good condition. All counts were correct at the end of the case. KARLIE/TASHA Voice ID: [id number] Report ID: [id number]
[2019-03-12] MEDS ORDERED: CEFEPIME 1 GM/100 ML BAG IV ONE (00:54)
--- NOTE | 2019-03-12 02:26 | PN ---
Date of Progress Note: 03/11/2019 Chief Complaint: End-stage renal disease on dialysis. History: The patient is undergoing debridement of lower back decubitus ulcer. Patient is on antibio tics. She was admitted for sepsis. She developed a low-grade fever. She was found to have infected decubitus ulcer. She has history of diabetes mellitus. She is bedbound. Review of Systems: Denies nausea, vomiting. Denies chest pain, palpitations. Physical Examination: Lungs: Clear to auscultation bilaterally. Heart: S1, S2. Abdomen: Soft, benign. Extremities: No edema. Impression And Plan: 1.End-stage renal disease. Continue dialysis, today for metabolic clearance and to obtain ultrafilt ration. 2.Infected decubitus ulcer. Continue antibiotics. Status post debridement. Management per Surgica l team. 3.Renal osteodystrophy. Continue renal diet and binders as tolerated. 4.Anemia and chronic kidney disease. Monitor hemoglobin level. Continue renal diet. EB/MODL Voice ID: [id number] Report ID: [id number]
[2019-03-12 05:40] LABS: Absolute Lymphocytes (CBC) 1.3 K/uL (0.7-4.9); Basophils % 0.5 % (0-1.3); Hematocrit 28.2 % (36.0-45.0); Lymphocytes % 11.7 % (15.3-44.8); MPV 8.6 fL (7.6-11.3); RBC Red Blood Cell Count 2.92 M/uL (3.86-4.86)
[2019-03-12 06:01] LABS: Magnesium 2.1 mg/dL (1.8-2.4); Potassium 4.3 mmol/L (3.5-5.1)
[2019-03-12] MEDS: CALCIUM CARBONATE CHEW 500MG TAB PO SCH ×3 (08:00→16:08)
[2019-03-12] MEDS: carvediloL 12.5 MG TAB PO SCH (09:00)
[2019-03-12] MEDS: ZINC SULFATE 220 MG CAP PO SCH (09:00)
[2019-03-12] MEDS: POLYETHYL GLY 3350 17 GM/DOSE PO SCH (09:00)
[2019-03-12] MEDS: SENOSIDES 8.6 MG TAB PO SCH (09:00)
[2019-03-12] MEDS: DULOXETINE 30 MG CAP PO SCH (09:00)
[2019-03-12] MEDS: JUVEN PACKET PO SCH ×2 (09:00→22:20)
[2019-03-12] MEDS: ASPIRIN 81 MG CHEWABLE TABLET PO SCH (09:00)
[2019-03-12] MEDS: HYDRALAZINE HCL 25 MG TABLET PO SCH (09:00)
[2019-03-12] MEDS: ASCORBIC ACID 500 MG TABLET PO SCH ×2 (09:00→22:19)
[2019-03-12] MEDS: FERROUS SULFATE 325 MG TAB PO SCH ×2 (09:00→22:19)
[2019-03-12] MEDS: CLOPIDOGREL 75 MG TABLET PO SCH (09:00)
[2019-03-12] MEDS: DIVALPROEX DR 500MG TAB PO SCH ×2 (09:00→22:19)
[2019-03-12] MEDS: COLLAGENASE 30 GM OINTMENT TOP SCH (09:56)
[2019-03-12] MEDS ORDERED: D5 0.45 NS 500 ML IV SCH (10:00)
--- NOTE | 2019-03-12 10:25 | RAD REPORT ---
EXAM DESCRIPTION: CT - Head Brain Wo Cont - 03/12/2019 10:18 am CLINICAL HISTORY: Altered mental status Headache, drowsiness COMPARISON: Head Brain Wo Cont dated 03/10/2019; Head Brain Wo Cont dated 12/17/2018 TECHNIQUE: All CT scans are performed using dose optimization technique as appropriate and may inclu de automated exposure control or mA/KV adjustment according to patient size. FINDINGS: No intracranial hemorrhage, hydrocephalus or extra-axial fluid collection.Mild generalized brain atrophy is present with moderate periventricular and deep white matter chronic microvascular i schemic changes.No areas of brain edema or evidence of midline shift. The paranasal sinuses and mastoids are clear. The calvarium is intact. Heavy atherosclerosis of both vertebral arteries. IMPRESSION: No acute intracranial abnormality.
--- NOTE | 2019-03-12 14:13 | PN ---
Date of Progress Note: 03/12/2019 Subjective: Patient today is status post dialysis yesterday, finished at night. Today, patient poor ly responsive. Patient is status post surgery yesterday. Physical Examination: Vital Signs: Blood pressure 110/70, pulse of 76, afebrile. Chest: Faint rales in the bases. Heart: S1, S2. Regular systolic murmur. Abdomen: Soft, nontender. Extremity: Trace edema. Contraction. Neuro: Responds to pain. Opens eyes continuously. Could not appreciate any focality. Laboratory Data: WBC 11.1, H and H 9.4/28.2, platelets 317. Sodium 136, potassium 4.3, bicarb 28, B UN 30, creatinine 1.9, calcium 8.4, magnesium 2.1. Current Medications: 1.Cefepime. 2.Vancomycin. 3.Epogen. 4.Plavix. 5.Calcium carbonate. 6.Carvedilol 12.5 b.i.d. 7.Hydralazine 50 t.i.d. 8.Atorvastatin. 9.Trazodone. 10.Tylenol. 11.Depakote. 12.Tramadol. Assessment And Plan: 1.End-stage renal disease. Normal volume. I am going to continue the patient on her regular dialys is. We will arrange for dialysis tomorrow and we will follow up the patient. 2.Altered mental status with marginal low blood pressure. I am going to start the patient on D5 kirby f. We will follow up the patient. 3.Altered mental status. Start the patient on D5 half. We will get CT brain. I am going to go ahe ad and decrease carvedilol to 3.125, discontinue hydralazine. 4.Decubitus ulcer with methicillin-resistant Staphylococcus aureus. Patient on vancomycin already. We will follow up with Surgery and Wound Care. 5.Diabetes, as by the primary. Case discussed with the family/son by bedside. 6.Patient DNR. TRISHA/MODL Voice ID: [id number] Report ID: [id number]
--- NOTE | 2019-03-12 14:13 | P.PN ---
Subjective Date of Service: 03/12/19 Primary Care Provider: unknown Chief Complaint: Fever, altered mentation, end-stage renal disease Patient seen and examined at bedside with RN. Chart reviewed. This morning patient appears to be more lethargic than usual. Family at bedside states that this is the baseline for patient after hemodialysis. Patient arousable to sternal rub. Is opening her eyes with verbal stimuli as well. Review of Systems 10-point ROS is otherwise unremarkable Physical Examination - Vital Signs Temperature: 99.1 F Blood Pressure: 126/58 Pulse: 77 Respirations: 17 Pulse Ox (%): 97 - Physical Exam General: In no apparent distress, Cachectic, Other (Lethargic) HEENT: Atraumatic, PERRLA, EOMI Neck: Supple, JVD not distended Respiratory: Clear to auscultation bilaterally, Normal air movement Cardiovascular: Regular rate/rhythm, Normal S1 S2, Edema Gastrointestinal: Normal bowel sounds, No tenderness Musculoskeletal: No tenderness, Swelling Integumentary: Pressure ulcer Neurological: Abnormal speech, Abnormal strength, Abnormal sensation Lymphatics: No axilla or inguinal lymphadenopathy - Studies Microbiology Data (last 24 hrs): 03/09/19 17:15 Blood - Blood Aerobic Blood Culture - Final Meth Resistant Staph Aureus 03/09/19 17:15 Blood - Blood Gram Stain - Final 03/09/19 17:10 Blood - Blood Aerobic Blood Culture - Final Meth Resistant Staph Aureus 03/09/19 17:10 Blood - Blood Gram Stain - Final 03/09/19 17:10 Blood - Blood Anaerobic Blood Culture - Final Meth Resistant Staph Aureus 03/09/19 17:10 Blood - Blood Gram Stain - Final 03/09/19 17:00 Wound - Left Ankle Culture & Sensitivity - Final Meth Resistant Staph Aureus 03/09/19 17:01 Catheterized Urine [place] Count - Final 03/09/19 17:01 Catheterized Urine - Final No growth. Medications List Reviewed: Yes Assessment And Plan - Current Problems (Diagnosis) (1) Sepsis Current Visit: Yes Status: Acute Plan: Sepsis most likely secondary to bacteremia likely from Sacral decubitus stage 4 ulcer and bilateral heel eschar pressure ulcers -wound cultures positive for MRSA -blood culture also positive for MRSA -will continue with IV vancomycin and. Cefepime at this time -currently hemodynamically stable. -will follow CBC and CMP tomorrow a.m. Qualifiers: Sepsis type: methicillin resistant Staphylococcus aureus Sepsis acute organ dysfunction status: with acute organ dysfunction Severe sepsis acute organ dysfunction type: encephalopathy Severe sepsis shock status: without septic shock Qualified Code(s): A41.02 - Sepsis due to Methicillin resistant Staphylococcus aureus; R65.20 - Severe sepsis without septic shock; G93.41 - Metabolic encephalopathy (2) Stage II pressure ulcer of buttock Onset Date: 06/15/18 Current Visit: No Status: Acute Plan: Sacral ulcer noted with acute infection -surgery consulted. Appreciated recommendations -possible incision and drainage -currently on IV vancomycin will continue that here in the hospital -cultures are positive for MRSA Qualifiers: Laterality: unspecified laterality Qualified Code(s): L89.302 - Pressure ulcer of unspecified buttock, stage 2 (3) Diabetic foot ulcers Current Visit: Yes Status: Acute Plan: Same As above -Wound Care consulted. appreciated Reccs Qualifiers: Diabetic foot ulcer location: heel Diabetes mellitus type: type 2 Non- pressure ulcer stage: unspecified non-pressure ulcer stage (4) Toxic encephalopathy Current Visit: Yes Status: Acute Plan: Toxic encephalopathy most likely secondary to sepsis secondary to bacteremia -currently alert and oriented times 0 after dialysis -family at bedside states that this is patient's baseline after dialysis -head CT negative for any acute abnormality (5) Essential hypertension Onset Date: 01/02/18 Current Visit: No Status: Chronic Plan: Currently on home medication will continue that here in the hospital (6) Hyperlipidemia Onset Date: 08/07/17 Current Visit: No Status: Chronic Plan: Currently on statin will continue that here in the hospital Qualifiers: Hyperlipidemia type: mixed hyperlipidemia Qualified Code(s): E78.2 - Mixed hyperlipidemia (7) ESRD (end stage renal disease) on dialysis Onset Date: 06/15/18 Current Visit: No Status: Chronic Plan: Currently receiving hemodialysis -nephrology is consulted. Appreciated recommendations -case management to be consulted for IV vancomycin to be initiated with dialysis (8) History of stroke Onset Date: 08/07/17 Current Visit: No Status: Chronic (9) History of seizures Current Visit: Yes Status: Chronic - Plan Pending clinical improvement at this time. Discharge Plan: Home Plan to discharge in: Greater than 2 days - Code Status/Comfort Care Code Status Assessed: Yes Critical Care: No
--- NOTE | 2019-03-12 14:38 | P.PN ---
Subjective Date of Service: 03/12/19 Primary Care Provider: unknown Chief Complaint: Fever, altered mentation, end-stage renal disease Subjective: Improving (Patient has no acute events) Physical Examination - Vital Signs Temperature: 99.1 F Blood Pressure: 126/58 Pulse: 77 Respirations: 17 Pulse Ox (%): 97 - Physical Exam General: Confused Musculoskeletal: Other (sacral wound is clean) Integumentary: Other (wounds to bilateral feet are clean and packed) - Studies Microbiology Data (last 24 hrs): 03/09/19 17:00 Wound - Left Ankle Gram Stain - Final 03/09/19 17:00 Wound - Left Ankle Culture & Sensitivity - Final Meth Resistant Staph Aureus 03/09/19 17:15 Blood - Blood Aerobic Blood Culture - Final Meth Resistant Staph Aureus 03/09/19 17:15 Blood - Blood Gram Stain - Final 03/09/19 17:10 Blood - Blood Aerobic Blood Culture - Final Meth Resistant Staph Aureus 03/09/19 17:10 Blood - Blood Gram Stain - Final 03/09/19 17:10 Blood - Blood Anaerobic Blood Culture - Final Meth Resistant Staph Aureus 03/09/19 17:10 Blood - Blood Gram Stain - Final 03/09/19 17:01 Catheterized Urine [place] Count - Final 03/09/19 17:01 Catheterized Urine - Final No growth. Medications List Reviewed: Yes Assessment And Plan - Current Problems (Diagnosis) (1) Diabetic foot ulcers Current Visit: Yes Status: Acute Plan: continue dressing changes with packing - septic joint - recommend amputation when patient improved - continue wound care for sacral and heel wounds with santyl, damp to dry dressings daily - continue medical management Qualifiers: Diabetic foot ulcer location: heel Diabetes mellitus type: type 2 Non- pressure ulcer stage: unspecified non-pressure ulcer stage Physician Review Additional Text: Impression: Fever with Toxic encephalopathy noted bacteremia likely from Sacral decubitus stage 4 ulcer and bilateral heel eschar pressure ulcers ESRD on hemodialysis with Hyponatremia, Hypokalemia 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 Patient more alert today. Surgery plans for debridement. Await findings. Await cultures is well. Continue to monitor closely. Case discussed with nephrology. Patient will have dialysis today. 1 wound culture shows methicillin-resistant Staph aureus. Will consult infectious disease for further recommendation as well. I will turn the service over to Dr. Shannon tomorrow. I will go over the plan of care with her. Anticipate discharge greater than 2 days likely 3-5 days pending clinical improvement. ESRD on hemodialysis with Hyponatremia, Hypokalemia: Continue with dialysis. Nephrology consulted. Electrolyte protocol in place. 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 Insulin sliding scale in place. HTN: Continue medication. Will monitor and adjust appropriately. Hx of CVA: Continue medication. Seizure disorder: Continue medication. Anemia of chronic disease: Continue medication. Will monitor hemoglobin closely.
[2019-03-12] MEDS: TRAMADOL HCL 50 MG TAB PO PRN (17:23)
[2019-03-12] MEDS: TRAZODONE 50 MG TABLET PO SCH (21:00)
[2019-03-12] MEDS: INSULIN GLARGINE 100 UNITS/ML SQ SCH (22:16)
[2019-03-12] MEDS: carvediloL 3.125 MG TAB PO SCH (22:18)
[2019-03-12] MEDS: TERAZOSIN HCL 1 MG CAP PO SCH (22:18)
[2019-03-12] MEDS: ATORVASTATIN 20 MG TAB PO SCH (22:19)
[2019-03-13 06:01] LABS: Absolute Lymphocytes (CBC) 1.9 K/uL (0.7-4.9); Basophils % 0.5 % (0-1.3); Lymphocytes % 18.3 % (15.3-44.8); MPV 8.6 fL (7.6-11.3); RBC Red Blood Cell Count 2.63 M/uL (3.86-4.86)
[2019-03-13 06:18] LABS: Magnesium 2.3 mg/dL (1.8-2.4); Potassium 4.4 mmol/L (3.5-5.1)
[2019-03-13 08:35] LABS: Blood Morphology Comment NOT SEEN (NOT SEEN); Platelet Estimate ADEQ
[2019-03-13] MEDS: DULOXETINE 30 MG CAP PO SCH (09:10)
[2019-03-13] MEDS: carvediloL 3.125 MG TAB PO SCH ×2 (09:11→23:31)
[2019-03-13] MEDS: CLOPIDOGREL 75 MG TABLET PO SCH (09:11)
[2019-03-13] MEDS: ZINC SULFATE 220 MG CAP PO SCH (09:11)
[2019-03-13] MEDS: CALCIUM CARBONATE CHEW 500MG TAB PO SCH ×3 (09:11→17:15)
[2019-03-13] MEDS: ASCORBIC ACID 500 MG TABLET PO SCH ×2 (09:11→23:53)
[2019-03-13] MEDS: ASPIRIN 81 MG CHEWABLE TABLET PO SCH (09:12)
[2019-03-13] MEDS: SENOSIDES 8.6 MG TAB PO SCH (09:13)
[2019-03-13] MEDS: FERROUS SULFATE 325 MG TAB PO SCH ×2 (09:13→23:30)
[2019-03-13] MEDS: POLYETHYL GLY 3350 17 GM/DOSE PO SCH (09:37)
[2019-03-13] MEDS: JUVEN PACKET PO SCH ×2 (09:45→23:32)
[2019-03-13] MEDS: PIPER/TAZO/NS 2.25gm 2.25 GM/100 ML BAG IV SCH ×2 (10:55→17:15)
[2019-03-13] MEDS: TRAMADOL HCL 50 MG TAB PO PRN (10:56)
--- NOTE | 2019-03-13 13:07 | P.PN ---
Subjective Date of Service: 03/13/19 Primary Care Provider: unknown Chief Complaint: Fever, altered mentation, end-stage renal disease Subjective: No new changes Physical Examination - Vital Signs Temperature: 97.5 F Blood Pressure: 129/67 Pulse: 65 Respirations: 16 Pulse Ox (%): 97 - Physical Exam General: Demented, Other (lethargic) Musculoskeletal: Other (wounds of sacrum and bilateral feet are unchnaged, packed well) - Studies Microbiology Data (last 24 hrs): 03/09/19 17:00 Wound - Left Ankle Gram Stain - Final 03/09/19 17:00 Wound - Left Ankle Culture & Sensitivity - Final Meth Resistant Staph Aureus 03/09/19 17:15 Blood - Blood Aerobic Blood Culture - Final Meth Resistant Staph Aureus 03/09/19 17:15 Blood - Blood Gram Stain - Final 03/09/19 17:10 Blood - Blood Aerobic Blood Culture - Final Meth Resistant Staph Aureus 03/09/19 17:10 Blood - Blood Gram Stain - Final 03/09/19 17:10 Blood - Blood Anaerobic Blood Culture - Final Meth Resistant Staph Aureus 03/09/19 17:10 Blood - Blood Gram Stain - Final Medications List Reviewed: Yes Assessment And Plan - Current Problems (Diagnosis) (1) Diabetic foot ulcers Current Visit: Yes Status: Acute Plan: continue dressing changes with packing - septic joint - recommend amputation when patient improved - continue wound care for sacral and heel wounds with santyl, damp to dry dressings daily - continue medical management - Await hospice consult per Dr. Shannon and family. 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 Patient more alert today. Surgery plans for debridement. Await findings. Await cultures is well. Continue to monitor closely. Case discussed with nephrology. Patient will have dialysis today. 1 wound culture shows methicillin-resistant Staph aureus. Will consult infectious disease for further recommendation as well. I will turn the service over to Dr. Shannon tomorrow. I will go over the plan of care with her. Anticipate discharge greater than 2 days likely 3-5 days pending clinical improvement. ESRD on hemodialysis with Hyponatremia, Hypokalemia: Continue with dialysis. Nephrology consulted. Electrolyte protocol in place. 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 Insulin sliding scale in place. HTN: Continue medication. Will monitor and adjust appropriately. Hx of CVA: Continue medication. Seizure disorder: Continue medication. Anemia of chronic disease: Continue medication. Will monitor hemoglobin closely.
[2019-03-13] MEDS: DIVALPROEX DR 500MG TAB PO SCH ×2 (13:25→23:30)
[2019-03-13] MEDS: COLLAGENASE 30 GM OINTMENT TOP SCH (13:34)
--- NOTE | 2019-03-13 15:26 | PN ---
Date of Progress Note: 03/13/2019 Subjective: Patient was admitted with infected ulcer, status post debridement. Patient had positive blood culture. Physical Examination: Vital Signs: Blood pressure 129/67, pulse of 65, afebrile. Chest: Clear to auscultation. Heart: S1, S2. Systolic murmur. Abdomen: Soft, nontender. Extremities: Ulcer debridement. Has no edema. Neurologic: Alert today. No focal. Laboratory Data: WBC 10.4, H and H 8.5/26, platelets of 316. Sodium 138, potassium 4.4, bicarb 26, BUN 49, creatinine 3, calcium 8.4, magnesium 2.3. Culture, patient on the wound growing E coli, Prov idencia, and Enterococcus VRE; on the blood has positive MRSA. Medications: Current medications the patient on include: 1.Aspirin. 2.Zosyn 2.25 q.8. 3.Vancomycin. 4.Plavix. 5.Epogen. 6.Calcium carbonate. 7.Carvedilol 3.125 b.i.d. 8.Atorvastatin. 9.Terazosin. 10.Trazodone. Assessment And Plan: 1.End-stage renal disease. We will maintain the patient on dialysis. Patient is going to be schedu led for dialysis tomorrow. 2.Hypertension, controlled, optimal. Continue current medication. 3.Bacteremia. We will go ahead and get echocardiogram. I am going to repeat blood culture to evalu ate if this is a line infection from the PermCath. 4.Ulcer with infected multi-organisms. Continue current antibiotic dose appropriate. We will follo w up with Surgery. I spoke with the family. Family agreed for long-term antibiotic. We will refer to [facility]. TRISHA/TASHA Voice ID: [id number] Report ID: [id number]
--- NOTE | 2019-03-13 15:29 | P.PN ---
Subjective Date of Service: 03/13/19 Primary Care Provider: unknown Chief Complaint: Fever, altered mentation, end-stage renal disease Patient seen and examined at bedside with RN. Chart reviewed. Family at bedside DW about hospice. Agreeable to Hospice. DUC called. Review of Systems 10-point ROS is otherwise unremarkable Physical Examination - Vital Signs Temperature: 97.5 F Blood Pressure: 129/67 Pulse: 65 Respirations: 16 Pulse Ox (%): 97 - Physical Exam General: Alert, Oriented x1 Respiratory: Clear to auscultation bilaterally, Normal air movement Cardiovascular: Regular rate/rhythm, Normal S1 S2 Gastrointestinal: Normal bowel sounds, No tenderness Musculoskeletal: No tenderness, Erythema, Tenderness, Warmth Integumentary: Diabetic ulcer, Pressure ulcer, Venous stasis ulcer Neurological: Normal tone, Normal affect, Abnormal speech Lymphatics: No axilla or inguinal lymphadenopathy - Studies Microbiology Data (last 24 hrs): 03/09/19 17:00 Wound - Left Ankle Gram Stain - Final 03/09/19 17:00 Wound - Left Ankle Culture & Sensitivity - Final Meth Resistant Staph Aureus 03/09/19 17:15 Blood - Blood Aerobic Blood Culture - Final Meth Resistant Staph Aureus 03/09/19 17:15 Blood - Blood Gram Stain - Final 03/09/19 17:10 Blood - Blood Aerobic Blood Culture - Final Meth Resistant Staph Aureus 03/09/19 17:10 Blood - Blood Gram Stain - Final 03/09/19 17:10 Blood - Blood Anaerobic Blood Culture - Final Meth Resistant Staph Aureus 03/09/19 17:10 Blood - Blood Gram Stain - Final Medications List Reviewed: Yes Assessment And Plan - Current Problems (Diagnosis) (1) Sepsis Current Visit: Yes Status: Acute Plan: Sepsis most likely secondary to bacteremia likely from Sacral decubitus stage 4 ulcer and bilateral heel eschar pressure ulcers -wound cultures Ankle positive for MRSA, Sacral + for VRE -blood culture also positive for MRSA -will continue with IV vancomycin Add Zosyn today -currently hemodynamically stable. Qualifiers: Sepsis type: methicillin resistant Staphylococcus aureus Sepsis acute organ dysfunction status: with acute organ dysfunction Severe sepsis acute organ dysfunction type: encephalopathy Severe sepsis shock status: without septic shock Qualified Code(s): A41.02 - Sepsis due to Methicillin resistant Staphylococcus aureus; R65.20 - Severe sepsis without septic shock; G93.41 - Metabolic encephalopathy (2) Stage II pressure ulcer of buttock Onset Date: 06/15/18 Current Visit: No Status: Acute Plan: Sacral ulcer noted with acute infection -surgery consulted. Appreciated recommendations -S.p incision and drainage POD # 1 -currently on IV vancomycin and zosyn now -cultures are positive for VRE Qualifiers: Laterality: unspecified laterality Qualified Code(s): L89.302 - Pressure ulcer of unspecified buttock, stage 2 (3) Diabetic foot ulcers Current Visit: Yes Status: Acute Plan: Same As above -Wound Care consulted. appreciated Reccs Qualifiers: Diabetic foot ulcer location: heel Diabetes mellitus type: type 2 Non- pressure ulcer stage: unspecified non-pressure ulcer stage (4) Toxic encephalopathy Current Visit: Yes Status: Acute Plan: Toxic encephalopathy most likely secondary to sepsis secondary to bacteremia -currently alert and oriented times 2 -head CT negative for any acute abnormality (5) Essential hypertension Onset Date: 01/02/18 Current Visit: No Status: Chronic Plan: Currently on home medication will continue that here in the hospital (6) Hyperlipidemia Onset Date: 08/07/17 Current Visit: No Status: Chronic Plan: Currently on statin will continue that here in the hospital Qualifiers: Hyperlipidemia type: mixed hyperlipidemia Qualified Code(s): E78.2 - Mixed hyperlipidemia (7) ESRD (end stage renal disease) on dialysis Onset Date: 06/15/18 Current Visit: No Status: Chronic Plan: Currently receiving hemodialysis -nephrology is consulted. Appreciated recommendations -case management to be consulted for IV vancomycin to be initiated with dialysis (8) History of stroke Onset Date: 08/07/17 Current Visit: No Status: Chronic (9) History of seizures Current Visit: Yes Status: Chronic - Plan Now Agreeable to Hospice. Will enroll and DC once Hospice setup at home.
[2019-03-13] MEDS: MORPHINE 2 MG/ML SYR IV PRN ×2 (17:19→23:31)
[2019-03-13] MEDS: EPOETIN 4,000 UNIT/ML VIAL IV SCH (20:12)
[2019-03-13] MEDS ORDERED: VANCOMYCIN 500 MG/VIAL ONE (20:21)
[2019-03-13] MEDS ORDERED: NA CHLORIDE 0.9% 100 ML IV ONE (20:21)
[2019-03-13] MEDS: TERAZOSIN HCL 1 MG CAP PO SCH (23:30)
[2019-03-13] MEDS: TRAZODONE 50 MG TABLET PO SCH (23:30)
[2019-03-13] MEDS: ATORVASTATIN 20 MG TAB PO SCH (23:30)
[2019-03-13] MEDS: INSULIN GLARGINE 100 UNITS/ML SQ SCH (23:32)
[2019-03-14] MEDS: PIPER/TAZO/NS 2.25gm 2.25 GM/100 ML BAG IV SCH ×2 (00:01→09:47)
[2019-03-14] MEDS: DULOXETINE 30 MG CAP PO SCH (09:48)
[2019-03-14] MEDS: ASPIRIN 81 MG CHEWABLE TABLET PO SCH (09:48)
[2019-03-14] MEDS: CALCIUM CARBONATE CHEW 500MG TAB PO SCH (09:48)
[2019-03-14] MEDS: FERROUS SULFATE 325 MG TAB PO SCH (09:48)
[2019-03-14] MEDS: ASCORBIC ACID 500 MG TABLET PO SCH ×2 (09:48→21:01)
[2019-03-14] MEDS: SENOSIDES 8.6 MG TAB PO SCH (09:48)
[2019-03-14] MEDS: DIVALPROEX DR 500MG TAB PO SCH ×2 (09:48→21:01)
[2019-03-14] MEDS: carvediloL 3.125 MG TAB PO SCH ×2 (09:48→21:02)
[2019-03-14] MEDS: ZINC SULFATE 220 MG CAP PO SCH (09:48)
[2019-03-14] MEDS: CLOPIDOGREL 75 MG TABLET PO SCH (09:48)
[2019-03-14] MEDS: POLYETHYL GLY 3350 17 GM/DOSE PO SCH (09:49)
[2019-03-14] MEDS: JUVEN PACKET PO SCH ×2 (09:49→21:02)
[2019-03-14] MEDS: COLLAGENASE 30 GM OINTMENT TOP SCH (09:50)
--- NOTE | 2019-03-14 12:25 | PN ---
Date of Progress Note: 03/14/2019 Subjective: Patient was admitted with infected ulcer. Patient underwent debridement growing multipl e organisms. Physical Examination: Vital Signs: Blood pressure 121/56, pulse of 63, afebrile. Chest: Faint rales on the left base. Heart: S1, S2. Systolic murmur. Abdomen: Soft nontender. Extremity: Trace edema. Neuro: Alert. Laboratory Data: WBC 10.4, H and H 8.5/26, platelets 316, sodium 138, potassium 4.4, bicarb 26, BUN 49, creatinine 3, calcium 8.4, magnesium 2.3. Current Medications: The patient on include: 1.Zosyn. 2.Vancomycin. 3.Plavix. 4.Epogen. 5.Ferrous sulfate. 6.Calcium carbonate. 7.Atorvastatin. 8.Terazosin. 9.Trazodone. 10.Zinc sulfate. 11.Jason. 12.Zofran. 13.Insulin. Assessment And Plan: 1.End-stage renal disease. Patient after long discussion with the family, patient and family decide d for hospice care. I had further discussion with the family in the presence of the daughter morteza srinivasan the dialysis care during the hospice. Family decided no dialysis during the hospice, so we will h old on the dialysis. 2.I explained risks, benefits, alternatives. Family understanding that we will hold on the dialysis . 3.Hypertension, controlled, optimal. Continue to monitor. 4.Secondary hyperparathyroid given the patient is going to be in hospice care, discontinue calcium c arbonate. 5.Chronic anemia secondary to chronic kidney disease. Patient is going to be on hospice care. I go ing to discontinue Epogen. 6.Multiple wound infection, bacteremia. Again, patient will be on hospice. Discontinue antibiotics . 7.Diabetes as by primary. Time spent to discussion with the family and the team 35 minutes. Case discussed with Dr. Shannon. TRISHA/TASHA Voice ID: [id number] Report ID: [id number]
[2019-03-14] MEDS: TRAMADOL HCL 50 MG TAB PO PRN (14:08)
--- NOTE | 2019-03-14 14:35 | P.DS ---
Admission Date: 03/09/19 Discharge Date: 03/14/19 Primary Care Provider: unknown Disposition: HOSPICE-HOME Discharge Condition: FAIR Reason for Admission: Fever, altered mentation, end-stage renal disease Consultations: Gen Surgery Nephrology ID - Problems (1) Sepsis Current Visit: Yes Status: Acute Qualifiers: Sepsis type: methicillin resistant Staphylococcus aureus Sepsis acute organ dysfunction status: with acute organ dysfunction Severe sepsis acute organ dysfunction type: encephalopathy Severe sepsis shock status: without septic shock Qualified Code(s): A41.02 - Sepsis due to Methicillin resistant Staphylococcus aureus; R65.20 - Severe sepsis without septic shock; G93.41 - Metabolic encephalopathy (2) Stage II pressure ulcer of buttock Onset Date: 06/15/18 Current Visit: No Status: Acute Qualifiers: Laterality: unspecified laterality Qualified Code(s): L89.302 - Pressure ulcer of unspecified buttock, stage 2 (3) Diabetic foot ulcers Current Visit: Yes Status: Acute Qualifiers: Diabetic foot ulcer location: heel Diabetes mellitus type: type 2 Non- pressure ulcer stage: unspecified non-pressure ulcer stage (4) Toxic encephalopathy Current Visit: Yes Status: Acute (5) Essential hypertension Onset Date: 01/02/18 Current Visit: No Status: Chronic (6) Hyperlipidemia Onset Date: 08/07/17 Current Visit: No Status: Chronic Qualifiers: Hyperlipidemia type: mixed hyperlipidemia Qualified Code(s): E78.2 - Mixed hyperlipidemia (7) ESRD (end stage renal disease) on dialysis Onset Date: 06/15/18 Current Visit: No Status: Chronic (8) History of stroke Onset Date: 08/07/17 Current Visit: No Status: Chronic (9) History of seizures Current Visit: Yes Status: Chronic Brief History of Present Illness: Patient is a 68-year-old female who came to the hospital from [facility] with fever. Patient has end-stage renal disease and goes to dialysis on Monday , , and Monday. She had been doing well clinically up until getting to dialysis. During dialysis she started having some chills and fevers so she was sent to the hospital. Patient has some foot sores as well as a decubitus ulcer. Patient's initial workup was unremarkable except for low blood pressure of 100/70. The blood pressure has improved. Otherwise, patient is not really able to give me much of a history. Patient appears to have a severe nutritional deficiencies. Patient has had a stroke as well as seizures. Patient has multiple factorial reasons for altered mentation. We will admit her to the hospital and further work her up for possible infection as well as neurologic etiology of her altered mental status. Patient is bed-bound at the nursing facility and her daughter is her ROMARIO. Hospital Course: Overall while here in the hospital patient remained stable Patient was initially admitted to the hospital for sepsis most likely secondary to sacral wound along with bilateral lower extremity decubitus ulcer as well. General surgery was consulted. Infectious disease was consulted. Patient was started on IV antibiotics while here in the hospital. And wound cultures and blood cultures were collected. Patient had incision and debridement done with general surgery who recommended that patient's left ankle decubitus ulcer has gone all the way down to the while required amputation along with amputation of the other leg is well due to gangrenous wound. At that time discussion was done with patient and family regarding further plan of care given the terminal illness of end-stage renal disease and now requiring amputation due to sepsis making patient's quality of life score. Family at that time made a decision that patient can be involved in hospice care. Family chose the [facility] hospice and patient was discharged to [place] with hospice. While here in the hospital patient end-stage renal disease. Nephrology was consulted patient continued to have hemodialysis here in the hospital. All other chronic conditions remained stable. Vital Signs/Physical Exam: Temp Pulse Resp BP Pulse Ox 97.3 F 56 16 111/51 L 98 03/14/19 12:00 03/14/19 12:00 03/14/19 12:00 03/14/19 12:00 03/14/19 12:00 General: In no apparent distress HEENT: Atraumatic, PERRLA, EOMI Neck: Supple, JVD not distended Respiratory: Clear to auscultation bilaterally, Normal air movement Cardiovascular: Regular rate/rhythm, Normal S1 S2 Gastrointestinal: Normal bowel sounds, No tenderness Integumentary: No rashes, Diabetic ulcer, Pressure ulcer, Venous stasis ulcer Neurological: Normal speech, Normal tone, Normal affect Lymphatics: No axilla or inguinal lymphadenopathy Laboratory Data at Discharge: WBC 10.4 K/uL (4.3-10.9) 03/13/19 05:36 Hgb 8.5 g/dL (12.0-15.0) L 03/13/19 05:36 Hct 26.0 % (36.0-45.0) L 03/13/19 05:36 Plt Count 316 K/uL (152-406) 03/13/19 05:36 PT 12.7 SECONDS (9.5-12.5) H 03/09/19 18:25 INR 1.08 03/09/19 18:25 Sodium 138 mmol/L (136-145) 03/13/19 05:36 Potassium 4.4 mmol/L (3.5-5.1) 03/13/19 05:36 BUN 49 mg/dL (7-18) H 03/13/19 05:36 Creatinine 3.07 mg/dL (0.55-1.3) H D 03/13/19 05:36 Glucose 139 mg/dL (74-106) H 03/13/19 05:36 Magnesium 2.3 mg/dL (1.8-2.4) 03/13/19 05:36 Total Bilirubin 0.4 mg/dL (0.2-1.0) 03/10/19 05:27 AST 29 U/L (15-37) 03/10/19 05:27 ALT 16 U/L (12-78) 03/10/19 05:27 Alkaline Phosphatase 121 U/L (45-117) H 03/10/19 05:27 Lipase 18 U/L (73-393) L 03/09/19 17:10 Home Medications: Aspirin 81 mg PO DAILY 01/01/18 Atorvastatin Calcium 20 mg PO BEDTIME 01/01/18 Clopidogrel Bisulfate [Plavix*] 75 mg PO DAILY 01/01/18 Divalproex Sodium [Depakote] 500 mg PO BID 06/15/18 Ferrous Sulfate [Iron] 325 mg PO BID 06/15/18 Hydralazine HCl [Apresoline] 50 mg PO TID 06/15/18 Insulin Lispro [Humalog Kwikpen U-100] 3 unit SQ AC 06/15/18 Lorazepam [Ativan] 1 mg PO SEECOM 06/15/18 Polyethylene Glycol 3350 [Glycolax] 17 gm PO DAILY 06/15/18 Sennosides 17.2 mg PO DAILY 06/15/18 Terazosin HCl 4 mg PO BEDTIME 06/15/18 Acetaminophen [Tylenol] 650 mg PO Q6H PRN 12/04/18 Ascorbic Acid [Vitamin C] 500 mg PO BID 12/04/18 Amino Acids/Protein Hydrolys [Liquacel 100 Liquid Packet] 30 ml PO SEECOM Arginine/Ascorbate Sod/Radha AC [Arginaid Powder] 1 each PO BID 03/09/19 Calcium Carbonate [Tums Regular] 2 tab PO TIDWM 03/09/19 Calcium Carbonate [Tums Regular] 500 mg PO PRN PRN 03/09/19 Carvedilol [Coreg] 12.5 mg PO BID 03/09/19 Duloxetine HCl [Cymbalta] 60 mg PO DAILY 03/09/19 Ergocalciferol (Vitamin D2) [Vitamin D2] 50,000 unit PO Q7D 03/09/19 Insulin Glargine,Hum.rec.anlog [Ryanagldorie Crawford U-100] 20 unit SQ BEDTIME 03/09 Tramadol HCl [Ultram] 50 mg PO BID 03/09/19 Tramadol HCl [Ultram] 50 mg PO Q12HP PRN 03/09/19 Trazodone HCl 50 mg PO BEDTIME 03/09/19 Zinc Sulfate [Zinc Sulfate*] 220 mg PO DAILY 03/09/19
--- NOTE | 2019-03-14 17:54 | P.PN ---
Subjective Date of Service: 03/14/19 Primary Care Provider: unknown Chief Complaint: Fever, altered mentation, end-stage renal disease Subjective: Improving Physical Examination - Vital Signs Temperature: 97.5 F Blood Pressure: 137/64 Pulse: 59 Respirations: 16 Pulse Ox (%): 97 - Physical Exam Integumentary: Other - Studies Microbiology Data (last 24 hrs): 03/09/19 17:15 Blood - Blood Aerobic Blood Culture - Final Meth Resistant Staph Aureus 03/09/19 17:15 Blood - Blood Gram Stain - Final 03/09/19 17:15 Blood - Blood Anaerobic Blood Culture - Final No growth in 5 days. Medications List Reviewed: Yes Assessment And Plan - Current Problems (Diagnosis) (1) Diabetic foot ulcers Current Visit: Yes Status: Acute Plan: continue dressing changes with packing - septic joint - recommend amputation when patient improved - continue wound care for sacral and heel wounds with santyl, damp to dry dressings daily - continue medical management - patient placed on hospice - continue wound care per prior recommendations Qualifiers: Diabetic foot ulcer location: heel Diabetes mellitus type: type 2 Non- pressure ulcer stage: unspecified non-pressure ulcer stage Physician Review Additional Text: Impression: Fever with Toxic encephalopathy noted bacteremia likely from Sacral decubitus stage 4 ulcer and bilateral heel eschar pressure ulcers ESRD on hemodialysis with Hyponatremia, Hypokalemia 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 Patient more alert today. Surgery plans for debridement. Await findings. Await cultures is well. Continue to monitor closely. Case discussed with nephrology. Patient will have dialysis today. 1 wound culture shows methicillin-resistant Staph aureus. Will consult infectious disease for further recommendation as well. I will turn the service over to Dr. Shannon tomorrow. I will go over the plan of care with her. Anticipate discharge greater than 2 days likely 3-5 days pending clinical improvement. ESRD on hemodialysis with Hyponatremia, Hypokalemia: Continue with dialysis. Nephrology consulted. Electrolyte protocol in place. 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 Insulin sliding scale in place. HTN: Continue medication. Will monitor and adjust appropriately. Hx of CVA: Continue medication. Seizure disorder: Continue medication. Anemia of chronic disease: Continue medication. Will monitor hemoglobin closely.
[2019-03-14] MEDS: MORPHINE 2 MG/ML SYR IV PRN (17:58)
[2019-03-14] MEDS ORDERED: POLYVINYL ALCOHOL 1.4% 15 ML EACH EYE PRN (18:35)
[2019-03-14] MEDS: TERAZOSIN HCL 1 MG CAP PO SCH (21:00)
[2019-03-14] MEDS: TRAZODONE 50 MG TABLET PO SCH (21:01)
[2019-03-14] MEDS: INSULIN GLARGINE 100 UNITS/ML SQ SCH (21:02)
[2019-03-15 03:02] LABS: HBsAG Nonreactive (Nonreactive)
[2019-03-15] MEDS: JUVEN PACKET PO SCH (08:30)
[2019-03-15] MEDS: DIVALPROEX DR 500MG TAB PO SCH (09:00)
[2019-03-15] MEDS: SENOSIDES 8.6 MG TAB PO SCH (09:00)
[2019-03-15] MEDS: ASCORBIC ACID 500 MG TABLET PO SCH (09:00)
[2019-03-15] MEDS: ZINC SULFATE 220 MG CAP PO SCH (09:00)
[2019-03-15] MEDS: DULOXETINE 30 MG CAP PO SCH (09:00)
[2019-03-15] MEDS: carvediloL 3.125 MG TAB PO SCH (09:00)
[2019-03-15] MEDS: ASPIRIN 81 MG CHEWABLE TABLET PO SCH (09:00)
[2019-03-15] MEDS: CLOPIDOGREL 75 MG TABLET PO SCH (09:00)
[2019-03-15] MEDS: POLYETHYL GLY 3350 17 GM/DOSE PO SCH (09:00)
[2019-03-15 10:49] VITALS: O2SAT 95
[2019-03-15] MEDS ORDERED: D10W 250 ML IV SCH (12:12)
[2019-03-15] MEDS ORDERED: DEXTROSE 10%-WATER 500 ML IV SCH (13:00)
[2019-03-15 13:05] VITALS: BP 100/47; TEMP 97.4
[2019-03-15] MEDS: MORPHINE 2 MG/ML SYR IV PRN (13:22)
[2019-03-15] MEDS: COLLAGENASE 30 GM OINTMENT TOP SCH (13:41)
--- NOTE | 2019-03-15 14:30 | P.PN ---
Subjective Date of Service: 03/15/19 Primary Care Provider: unknown Chief Complaint: Fever, altered mentation, end-stage renal disease Subjective: Worsening Pt with ESRD on HD, admitted for sepsis Todat No lethargic hypoglycemic Family agreed for comfort care and stop dialysis will sign off call us prn Physical Examination - Vital Signs Temperature: 97.4 F Blood Pressure: 100/47 Pulse: 63 Respirations: 22 Pulse Ox (%): 94 - Physical Exam General: Comatose HEENT: Atraumatic Neck: Supple, Without JVD or thyroid abnormality Respiratory: Diminished Cardiovascular: Regular rate/rhythm, Normal S1 S2, Edema Gastrointestinal: Normal bowel sounds, Soft and benign Musculoskeletal: No swelling - Studies Microbiology Data (last 24 hrs): 03/09/19 17:15 Blood - Blood Aerobic Blood Culture - Final Meth Resistant Staph Aureus 03/09/19 17:15 Blood - Blood Gram Stain - Final 03/09/19 17:15 Blood - Blood Anaerobic Blood Culture - Final No growth in 5 days. Medications List Reviewed: Yes Assessment And Plan - Plan End-stage renal disease. Family agreed for comfort care and hold dialysis Severe sepsis Comfort care now Chronic anemia Hb stable Hypoglycemia Comfort care overall poor prognosis
== END 2019-03-15 16:30 | disposition hospice, home (50) | DRG 871 ==
LOC: ER 16:31 → ERHOLD 20:14 → 2ND 20:20
PROVIDERS: ADMIT Hospitalist; ATTEND Hospitalist
PROC: 5A1D70Z Performance of Urinary Filtration, Intermittent, Less than 6 Hours Per Day (ICD-10-PCS; 2019-03-09)
PROC: 5A1D70Z Performance of Urinary Filtration, Intermittent, Less than 6 Hours Per Day (ICD-10-PCS; 2019-03-09)
PROC: 0JD73ZZ Extraction of Back Subcutaneous Tissue and Fascia, Percutaneous Approach (ICD-10-PCS; 2019-03-11)
PROC: 0JDR3ZZ Extraction of Left Foot Subcutaneous Tissue and Fascia, Percutaneous Approach (ICD-10-PCS; principal; 2019-03-11 10:45)
PROC: 0JDQ3ZZ Extraction of Right Foot Subcutaneous Tissue and Fascia, Percutaneous Approach (ICD-10-PCS; 2019-03-11 10:45)
DX: A41.02 Sepsis due to Methicillin resistant Staphylococcus aureus (principal); L89.154 Pressure ulcer of sacral region, stage 4; G92 Toxic encephalopathy; N18.6 End stage renal disease; I12.0 Hypertensive chronic kidney disease with stage 5 chronic kidney disease or end stage renal disease; E87.1 Hypo-osmolality and hyponatremia; M00.072 Staphylococcal arthritis, left ankle and foot; L89.302 Pressure ulcer of unspecified buttock, stage 2; E11.621 Type 2 diabetes mellitus with foot ulcer; E11.22 Type 2 diabetes mellitus with diabetic chronic kidney disease; Z86.73 Personal history of transient ischemic attack (TIA), and cerebral infarction without residual deficits; R56.9 Unspecified convulsions; E78.5 Hyperlipidemia, unspecified; E87.6 Hypokalemia; B95.62 Methicillin resistant Staphylococcus aureus infection as the cause of diseases classified elsewhere; D63.1 Anemia in chronic kidney disease; R01.1 Cardiac murmur, unspecified; Z66 Do not resuscitate
CPT/HCPCS: 36415; 70450; 71045; 80048; 80053; 80076; 80202; 81003; 82947; 83605; 83690; 83735; 83880; 84484; 85025; 85610; 86850; 86900; 86901; 87040; 87070; 87075; 87077; 87086; 87088; 87186; 87205; 87340; 87804; 90935; 93005; 96361; 96365; 96366; 96368; 96375; 99285; J0583; J0692; J1170; J1644; J1815; J2250; J2270; J2405; J2543; J2704; J3010; J3370; J3590; J7030; J7040; J7799